=== PATIENT | female | born 1950 | race Caucasian/White ===

== ENCOUNTER 2024-02-19 22:12 | Emergency (ER) | payer MEDICARE, BC, SELFPAY ==
--- NOTE | ~2024-02-19 | XR_ITS ---
Right foot Technique: AP, oblique, and lateral views were obtained. Clinical History: Pain Findings: No acute fracture or dislocation is seen. Osseous alignment is anatomic. Joint spaces are p reserved without erosive or degenerative change. Soft tissues are unremarkable. Impression: Unremarkable right foot radiographs. Reviewed, dictated and finalized at location . Impression: Unremarkable right foot radiographs.
[2024-02-19 22:20] VITALS: BP 127/45; PULSE 82; RESP 17; TEMP 36.1; O2SAT 100
--- NOTE | 2024-02-19 23:43 | ED.EXTPRO ---
HPI - Extremity Problem General Chief complaint: Extremity Problem,Nontraumatic Stated complaint: R foot swollen Time Seen by Provider: 02/19/24 23:32 History of Present Illness HPI Narrative: [age] old female presenting to the emergency department for evaluation for worsening right foot pain. Patient states the foot pain started bowel her earlier this morning. Patient did have follow-up at an outside emergency department, [facility], patient was told that she has osteoarthritis. Patient states after being discharged that she has had worsening pain and swelling the right foot. Patient states she does have increased pain with weight-bearing. Related Data Allergies Allergy/AdvReac Type Severity Reaction Status Date / Time NSAIDS (Non-Steroidal Allergy Unknown Other Verified 02/19/24 22:21 Anti-Inflamma valacyclovir Allergy Unknown Other Verified 02/19/24 22:21 Review of Systems Review of Systems: All systems reviewed & are unremarkable except as noted in HPI and below PMFSH Social History Social History Smoking status: Never smoker Alcohol intake: never Exam Narrative: APPEARANCE: Well appearing, no pain, no distress, well-nourished. HEAD: normocephalic, atraumatic. EYES: PERRLA/EOMI, conjunctivae clear. NOSE: Normal no drainage EARS:TMS clear with good light reflex. THROAT: Pharynx clear, no exudate. NECK: Supple. No adenopathy, no masses. RESPIRATORY: Airway patent, respirations nonlabored. Clear to auscultation bilaterally, no rales, rhonchi, wheezing. CARDIOVASCULAR: Regular rate and rhythm without murmurs rubs or gallops. ABDOMINAL: Soft, nontender, nondistended, normal bowel sounds MUSCULOSKELETAL: Moves all extremities. Strength/ROM intact, No edema, No calf tenderness. NEURO: Alert. Cranial nerves II through XII intact. SKIN: Warm, dry. Normal Color Course Course Emergency Course: And was negative for fracture, patient was treated for suspect cellulitis Vital Signs Vital signs: Vital Signs Temperature 97.0 F L 02/19/24 22:20 Pulse Rate 82 02/19/24 22:20 Respiratory Rate 17 02/19/24 22:20 Blood Pressure 127/45 L 02/19/24 22:20 Pulse Oximetry 100 02/19/24 22:20 Oxygen Delivery Room Air 02/19/24 22:20 Temperature 97.8 F 02/20/24 00:53 Pulse Rate 76 10/10/24 00:53 Respiratory Rate 16 02/20/24 00:53 Blood Pressure 126/57 L 02/20/24 00:53 Pulse Oximetry 98 02/20/24 00:53 Oxygen Delivery Room Air 02/19/24 22:20 MDM - Extremity (Nontraumatic) MDM Narrative Medical decision making narrative: [age] old female presents emergency department for evaluation for foot pain. X-ray was negative for acute fracture dislocation. Patient was started on Keflex emergency department home discharged home on Keflex. All questions concerns were addressed. Patient was comfortable with plan for discharge and close follow-up. Low concern for DVT, gout, osteoarthritis Differential Diagnosis Differential diagnosis: Likely gout, cellulitis, superficial thrombophlebitis, deep venous thrombosis of upper extremity, lower extremity edema, deep vein thrombosis of lower extremity and other Lab Data 02/20/24 00:22 02/20/24 00:22 Labs: Lab Results 02/20/24 Range/Units 00:22 WBC 8.7 (4.5-10.0) K/mm3 RBC 3.59 L (4.2-5.4) M/mm3 Hgb 10.7 L (12.0-15.0) g/dL Hct 33.0 L (37.0-47.0) % MCV 91.9 (80-100) fl MCH 29.8 (26-34) pg MCHC 32.4 (32-36) g/dl RDW 13.6 (11.5-14.5) % Plt Count 264 (150-375) k/mm3 MPV 10.6 H (7.4-10.4) fl Immature Gran % (Auto) 0.3 (0-0.5) % Neut % (Auto) 70.7 (45.5-73.1) % Lymph % (Auto) 17.8 L (18.3-44.2) % Dickson % (Auto) 10.3 H (2.6-8.5) % Eos % (Auto) 0.6 (0-4.4) % Baso % (Auto) 0.3 (0.2-1.2) % Lymph # (Auto) 1.55 (0.9-3.2) K/mm3 Dickson # (Auto) 0.9 H (0.1-0.6) K/mm3 Eos # (Auto) 0.1 (0-0.3) K/mm3 Baso # (Auto) 0.0 (0.0-0.1) K/mm3 Abs Immat Gr
[2024-02-20 00:28] LABS: Basophils Percent Auto 0.3 % (0.2-1.2); Eosinophils Absolute Auto 0.1 K/mm3 (0-0.3); Eosinophils Percent Auto 0.6 % (0-4.4); Hemoglobin 10.7 g/dL (12.0-15.0); Immature Granulocyte Absolute 0.03 K/mm3 (0.00-0.031); Immature Granulocyte Percent A 0.3 % (0-0.5); Lymphocytes Absolute Auto 1.55 K/mm3 (0.9-3.2); Lymphocytes Percent Auto 17.8 % (18.3-44.2); Mean Corpuscular HGB Conc 32.4 g/dl (32-36); Mean Corpuscular Hemoglobin 29.8 pg (26-34); Mean Corpuscular Volume 91.9 fl (80-100); Mean Platelet Volume 10.6 fl (7.4-10.4); Monocytes Absolute Auto 0.9 K/mm3 (0.1-0.6); Monocytes Percent Auto 10.3 % (2.6-8.5); Neutrophils Absolute Auto 6.2 K/mm3 (1.3-6.7); Neutrophils Percent Auto 70.7 % (45.5-73.1); Platelet Count Result 264 k/mm3 (150-375); Red Blood Count 3.59 M/mm3 (4.2-5.4); Red Cell Distribution Width 13.6 % (11.5-14.5); White Blood Count 8.7 K/mm3 (4.5-10.0)
[2024-02-20 00:29] VITALS: BP 121/59; PULSE 86; RESP 18; O2SAT 92
[2024-02-20 00:38] LABS: Alanine Aminotransferase 22 U/L (6-35); Albumin Level 4.3 g/dL (3.5-5.1); Alkaline Phosphatase 156 U/L (38-126); Anion Gap 10 mmol/L (4-12); Aspartate Amino Transferase 32 U/L (14-36); Bilirubin,Total 0.5 mg/dL (0.2-1.3); Blood Urea Nitrogen 32 mg/dL (7-17); Calcium 9.3 mg/dL (8.4-10.2); Carbon Dioxide 21 mmol/L (22-30); Chloride 106 mmol/L (98-107); Estimated Glomerular Filt Rate 44; Glucose 143 mg/dL (65-110); Potassium 3.6 mmol/L (3.4-5.0); Sodium 137 mmol/L (137-145)
[2024-02-20 00:53] VITALS: BP 126/57; PULSE 76; RESP 16; TEMP 36.6; O2SAT 98
[2024-02-20] MEDS: CEPHALEXIN 500 MG CAPSULE PO (00:53)
== END 2024-02-20 00:56 | disposition home or self-care (01) ==
PROVIDERS: Emergency Provider Emergency Medicine; PCP Internal Medicine
DX: L03.115 Cellulitis of right lower limb (principal)
CPT/HCPCS: 36415; 73630; 80053; 85025; 99283; A9270

== ENCOUNTER 2024-04-07 12:30 | Outpatient (RCR) | payer MEDICARE, BC, SELFPAY ==
--- NOTE | 2024-03-05 13:31 | OPREHPOC ---
Outpatient Therapy Plan of Care This is a Multidisciplinary Plan of Care that may contain components documented by all disciplines (PT, OT, and ST.) PT Problem 1 PT Problem #1 Knowledge Deficit PT Goal 1 Goal / Goal Update *indep with HEP Target Visit 8 PT Problem 2 PT Problem #2 Impaired Strength PT Goal 1 Goal / Goal Update increase LE strength to improve transfer and gait/ balance skills: 1* sit/stand transfer without rocking trunk for momentum 2* mat exercises x 20 reps with good control 3*single leg standing R x 8 seconds 4* single leg standing L x 8 seconds Target Visit 8 PT Problem 3 PT Problem #3 Impaired Functional Mobility PT Goal 1 Goal / Goal Update 1* pt up/down 12 steps with one hand railing, modified indep 2* Rod balance/gait score of 54/56 3* 2 minute walking test distance of 325' 4* pt ambulate without assistive device 5* self assessment with LE functional scale of 34% limitation in activity level Target Visit 8
--- NOTE | 2024-03-05 13:31 | PTOPEVAL1 ---
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; about 2 weeks ago, had cellulitis R foot, just completed antibiotics yesterday; went to in pt rehab, return to home 02-04-24; using the wheeled walker; have basement, not been down there to laundry--son doing laundry; have not returned to driving yet; have not been doing any leg exercises at home; Activity: prior to January, did not use assistive device, indep with all home and self care tasks; son lives with her Reported Pain Level Pain Score 2: Self Report Additional Pain Score Comments pain in R foot from cellulitis Assessment PT Clinical Summary Margarita has weakness and decreased mobility, s/p CABG and cellulitis R foot. She now uses a wheeled walker and her son is assisting with laundry because she has not been going down the stairs to basement. LE functional scale rating of 44% limitation. With the evaluation: Rod balance rating of 49/56 2 minute walking test distance of 225' with wheeled walker; 5 reps sit/stand is 16 seconds without use of UE; decreased strength of LE's with decreased knee flexion to ~ 80' due to arthritis. Skilled PT services to increase LE strength, gait and balance skills, with progression to walking without assistive device, to return to prior level of indep functioning. Monitor cardiac status PRN due to recent CABG and R foot pain due to cellulitis. Plan of Care Interventions Gait Training,Neuro Re-education,Patient Education,Therapeutic Activities,Therapeutic Exercise PT Services Indicated Yes Treatment Frequency and 2x/wk for 8 visits Duration These treatments will address the objective and functional deficits as defined above. The patient will be advanced safely and appropriately in order for the patient to progress towards his/her prior level of function. Additional exercises will be introduced and as well as a comprehensive home exercise program upon discharge, if needed, ?to ensure carryover of functional gains achieved in the clinic. This treatment plan has been reviewed and agreement upon by the patient.
--- NOTE | 2024-03-06 11:55 | OTOPEVDC ---
Assessment and note entered by ELIZABET Brown/Ilene, CHT Evaluation Information & Discharge Summary 03/06/24 Diagnosis 112.9, 148.0, N189, D69.6, 125.10, 173.9, 125.810 Subjective Information Patient underwent a CABG x3 on 01-20-24. Patient went to inpatient rehab, discharged home 02-04-24. She reports when she woke up from surgery her left ulnar 2 digits were numb. She continues to have difficulties moving the ulnar 2 fingers and she continues to have numbness. 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 She is right handed. Patient's son lives with her, they have a 1 story home with a basement where laundry is located. She is back to being able to complete ADLs independently, utilizing DME. She is not back to doing laundry yet due to the stairs. She has not returned to driving. Prior to CABG she did not use assistive device, independent with all home and self care tasks. Reported Pain Level Pain Score 2: Self Report Additional Pain Score Comments Patient reports bilateral UEs are sore from getting flu and COVID shots yesterday. Left forearm and hand pain, constant, 2/10 from ulnar nerve neurapraxia. Assessment OT Clinical Summary Patient referred to outpatient OT following CABG. 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 She was instructed on ROM and hand strengthening for the residual deficits/weakness. At this time continued follow up is not indicated. Educated the patient on HEP and she is independent with instructed materials. Recommend she complete these as she waits for the nerve to heal/return. Potential to follow up in a few months with nerve healing, but she may also spontaneously progress back to normal hand functioning also. Discussed this with the patient and she is in agreement with discharge. Plan of Care OT Services Indicated No
--- NOTE | 2024-04-07 13:18 | PTOPDC ---
Assessment and note entered by Selene Castillo, PT Discharge Report Assessment Status Discharge ICD-10 Condition Codes (PT) Difficulty Walking R26.2,R26.9,Weakness R53.1 Onset 01-20-24 Subjective Information is doing well, using the cane to walk more and not need the walker as much; sometimes walk without anything; doing the exercises at home and Reported Pain Level Pain Score 0: Self Report Assessment PT Clinical Summary Margarita has received 8 PT sessions. Compared to the initial evaluation: self assessment with the LE functional from 44 to 30% limitation in activity level; 2 minute walking test distance from 225' with wheeled walker to 300' without device; Rod balance score from 49/56 to 53/56; increase strength of trunk and hips-- perform 20 reps of mat exercises and single leg standing R and L x 3 seconds; on 12 steps requires use of hand railing; education completed for HEP. The goals were partially achieved. Discharge PT services, she is to continue with her HEP and increase walking and activity as tolerated. Plan of Care PT Services Indicated No
== END 2024-04-08 10:10 | disposition home or self-care (01) ==
LOC: ANHPT 12:30
PROVIDERS: PCP Internal Medicine
DX: Z95.1 Presence of aortocoronary bypass graft (principal); I25.810 Atherosclerosis of coronary artery bypass graft(s) without angina pectoris; R26.2 Difficulty in walking, not elsewhere classified; R26.9 Unspecified abnormalities of gait and mobility; R53.1 Weakness
CPT/HCPCS: 97110; 97116; 97161; 97165; 97530

== ENCOUNTER 2024-04-17 12:51 | Emergency (ER) | payer MEDICARE, BC, SELFPAY ==
[2024-04-17 12:52] VITALS: BP 111/90; PULSE 97; RESP 16; TEMP 36.3; O2SAT 100
[2024-04-17 14:48] VITALS: BP 111/57; PULSE 87; RESP 19; O2SAT 100
--- NOTE | 2024-04-17 15:39 | ED_ITS ---
HPI - Extremity Problem General Chief complaint: Extremity Problem,Nontraumatic Stated complaint: possible left foot cellulitis Time Seen by Provider: 04/17/24 14:47 History of Present Illness HPI Narrative: 74-year-old female presenting with concerns for cellulitis. States that she h ad cellulitis on her right foot several months ago. She was treated with Keflex and Has been doing well from plan. States that she developed some redness and swelling in her left foot over the last couple days. Feels exactly like the prior cellulitis. She called her PCP's office who advised her to come in for evaluation as her doctor is out of town. She denies other complaints or concerns. Related Data Allergies Allergy/AdvReac Type Severity Reaction Status Date / Time NSAIDS (Non-Steroidal Allergy Unknown Other Verified 04/17/24 13:29 Anti-Inflamma valacyclovir Allergy Unknown Other Verified 04/17/24 13:29 Review of Systems Review of Systems: All systems reviewed & are unremarkable except as noted in HPI and below PMFSH Social History Social History Smoking status: Never smoker Alcohol intake: never Exam Narrative: GENERAL: Well-appearing, well-nourished, and in no acute distress. HEAD: Normocephalic, atraumatic. EYES: PERRLA and EOMI. ENT: Grossly unremarkable NECK: Supple. CHEST: No respiratory distress. HEART: Regular rate and rhythm EXTREMITIES: dorsum of left foot is erythematous, slightly swollen, warm and mildly tender to the touch, no spreading redness, no fluctuance, neurovascularly intact SKIN: Warm, dry, as above NEURO: No focal deficits. Alert and oriented x3. PSYCH: Normal mood and affect. Course Vital Signs Vital signs: Vital Signs Temperature 97.4 F L 04/17/24 12:52 Pulse Rate 97 04/17/24 12:52 Respiratory Rate 16 04/17/24 12:52 Blood Pressure 111/90 04/17/24 12:52 Pulse Oximetry 100 04/17/24 12:52 Oxygen Delivery Room Air 04/17/24 12:52 Temperature 97.4 F L 04/17/24 12:52 Pulse Rate 95 04/17/24 15:53 Respiratory Rate 19 04/17/24 14:48 Blood Pressure 116/78 04/17/24 15:53 Pulse Oximetry 100 04/17/24 14:48 Oxygen Delivery Room Air 04/17/24 12:52 MDM - Extremity (Nontraumatic) MDM Narrative Medical decision making narrative: 74-year-old female presenting with concerns for cellulitis affecting her left foot. Vital signs are within normal limits. Exam is remarkable for the above. It is consistent with cellulitis involving the dorsum of her left foot. She did well on Keflex several months ago, will send in for Keflex for this infection. Recommend PCP follow-up. Discussed appropriate return precautions and supportive care. Discharged in stable condition. Differential Diagnosis Differential diagnosis: Likely cellulitis Medical Records Attestation: I reviewed the patient's medical records. Critical Care Time Critical Care Time Critical Care Time: No Discharge Plan Discharge Clinical Impression: Cellulitis Patient Disposition: Home, Self-Care Condition: Stable Instructions: Antibiotic Form, Cellulitis (ED) Additional Instructions: Please complete the antibiotics as prescribed. Follow-up with your primary care provider. If your symptoms worsen or other concerning symptoms arise, please return to the ER. Patient Language: Kyrgyz Prescriptions: New cephalexin 500 mg capsule 500 mg PO Q6H 10 Days Qty: 40 0RF No Action cephalexin 500 mg capsule 500 mg PO Q8H 7 Days Qty: 21 0RF Follow-up/Referrals: Ama,Elpidio Estrella MD [Primary Care Provider] -
[2024-04-17 15:53] VITALS: BP 116/78; PULSE 95
== END 2024-04-17 15:56 | disposition home or self-care (01) ==
PROVIDERS: Emergency Provider Emergency Medicine; PCP Internal Medicine
DX: L03.116 Cellulitis of left lower limb (principal)
CPT/HCPCS: 99283

== ENCOUNTER 2024-04-25 13:12 | Emergency (ER) | payer MEDICARE, BC, SELFPAY ==
--- NOTE | ~2024-04-25 | XR_ITS ---
EXAM: XR hand LT min 3V DATE: 04/25/2024 15:09 HISTORY: pain, swelling . COMPARISON: 07/19/2017. FINDINGS: Normal mineralization. Ossific fragment posterior to the first carpal row. No lytic or vivian stic lesion. Moderate scattered degenerative changes. No erosion or periosteal change. Vascular calci fication. IMPRESSION: Likely triquetral fracture, correlate with pain/tenderness. Reviewed, dictated and finalized at location K. [facility] [employer]
[2024-04-25 13:52] VITALS: BP 138/81; PULSE 95; RESP 18; O2SAT 100
--- NOTE | 2024-04-25 15:49 | ED_ITS ---
HPI - Extremity Injury (Upper) General Chief Complaint: Extremity Injury, Upper Stated Complaint: left hand swelling Time Seen by Provider: 04/25/24 14:57 Source: patient Mode of arrival: ambulatory Limitations: no limitations History of Present Illness HPI narrative: Patient is a 74-year-old female who presents the ED with report of left wrist pain and swelling. Patient reports she woke up 2 days ago with pain in her left wrist. She complains of pain and swelling that has persisted since then. Denies any known injury. Denies redness or warmth of wrist. Denies fevers. She is currently on antibiotics (keflex) for cellulitis of her L foot. History of recent CABG, on Plavix. Has been doing well since then. Hx of previous carpal tunnel release. Related Data Allergies Allergy/AdvReac Type Severity Reaction Status Date / Time NSAIDS (Non-Steroidal Allergy Unknown Other Verified 04/17/24 13:29 Anti-Inflamma valacyclovir Allergy Unknown Other Verified 04/17/24 13:29 Review of Systems Review of Systems: All systems reviewed & are unremarkable except as noted in HPI. All systems reviewed & are unremarkable except as noted in HPI and below PMFSH Social History Social History Smoking status: Never smoker Alcohol intake: never Exam Narrative: GENERAL: Elderly but well appearing, well-nourished, non-toxic, in no acute distress. HEAD: Normocephalic, atraumatic. RESPIRATORY: Airway patent, respirations nonlabored. CARDIOVASCULAR: Regular rate and rhythm. Radial pulses strong and easily palpable. MUSCULOSKELETAL: Moves all extremities. Limited range of motion of left wrist due to pain. Mild swelling noted throughout left wrist. Diffuse tenderness along carpal bones of left wrist, particularly laterally. Mild tenderness throughout anatomical snuffbox. Sensation intact. SKIN: Warm, dry, normal color. NEURO: A&O X3. Speech clear. Cranial nerves II-XII grossly intact. No ataxic movements. PSYCHIATRIC: Appropriate mood and affect. Normal interaction. Course Vital Signs Vital signs: Vital Signs Pulse Rate 95 04/25/24 13:52 Respiratory Rate 18 04/25/24 13:52 Blood Pressure 138/81 04/25/24 13:52 Pulse Oximetry 100 04/25/24 13:52 Pulse Rate 95 04/25/24 13:52 Respiratory Rate 18 04/25/24 13:52 Blood Pressure 138/81 04/25/24 13:52 Pulse Oximetry 100 04/25/24 13:52 MDM - Extremity Injury (Upper) MDM Narrative Medical decision making narrative: Patient?s injury is consistent with musculoskeletal etiology. No signs of neurologic or vascular compromise on physical examination. Compartments are soft without signs of compartment syndrome. No evidence of septic joint. No evidence of cellulitis. Patient is already on keflex for cellulitis of her foot. XR showing likely triquetral fx, correlate with tenderness. Patient is point tender in this area. She does also have some tenderness in the shanice tomical snuffbox. Will be placed in a volar short-arm splint. Will be referred to Orthopedics/Hand surgery for further evaluation. Patient is felt to be stable for discharge home and further outpatient management and treatment. Pain medication sent to pharmacy. Patient given strict return precautions. She agrees with plan. Discharged in stable condition. Medical Records Attestation: I reviewed the patient's medical records. Imaging Data Attestation: I personally reviewed and interpreted this imaging study as follows: Radiologist's impression: ITS Impressions Hand X-Ray 04/25/24 15:27 IMPRESSION: Likely triquetral fracture, correlate with pain/tenderness. Discharge Plan Discharge Clinical Impression: Fracture of triquetral bone of left wrist Patient Disposition: Home, Self-Care Condition: Stable Instructions: Antibiotic Form, Wrist Fracture in Adults (ED), Splint Care (ED) Additional Instructions: Wear splint until seen by Orthopedics/Hand surgery. Continue Tylenol as needed for pain. Utilize tramadol as needed for more severe pain. Return to the ED if you experience worsening or severe pain, recurrent injury, numbness, or any other symptoms of concern. Dr. Maradiaga (HAND/PLASTIC SURGERY) - [phone] Dr. Montes De Oca - [phone] Patient Language: Kinyarwanda Prescriptions: New tramadol 50 mg tablet 50 mg PO Q6H PRN (Reason: pain) Qty: 15 0RF No Action cephalexin 500 mg capsule 500 mg PO Q8H 7 Days Qty: 21 0RF cephalexin 500 mg capsule 500 mg PO Q6H 10 Days Qty: 40 0RF Follow-up/Referrals: Ama,Elpidio Estrella MD [Primary Care Provider] - Time of Disposition: 15:53
--- NOTE | 2024-04-25 16:22 | PC.NURSE ---
1610: CMS intact to left extremity after short arm volar splint applied. Pt tolerated well.
[2024-04-25 16:23] VITALS: BP 130/70; PULSE 88; RESP 16; TEMP 36.8; O2SAT 100
--- OUTSIDE RECORDS SUMMARY | 2024-04-29 13:54 | XMS_ITS | Encounter Summary ---
Author Organization [facility] Address [address] [place] [address]. [place], [place] [id number] [place] [address] Care Team Providers Care Examination Scorer Name Role Phone Elpidio Serrato MD Primary Care Provider [phone] Reason for Visit * Reason Comments ER F/U [facility] ER f/u 02/19/24 f or Rt foot painAnderson ER f/u 02/19/24 for cellulitis Results Patient would like t o talk about results of nerve conduction. Encounter Details Date Type Department Care Team (Late st Contact Info) Description 02/25/2024 2:20 PM CDT Office Visit [facility] Family & Internal Medicine - [address] [phone] Elpidio Serrato MD [address] [place] [address] ER F/U ([facility] ER f/u 02/19/24 for Rt foot pain/[facility] ER f/u 02/19/24 for cellulitis); Results (Patient would like to talk about results of nerve conduction. ) Social History Tobacco Use Types Packs/Day Years Used Date Smoking Tobacco: Never Smokeless Tobacco: Never Alcohol Use Standard Drinks/Week Comments No 0 (1 standard drink = 0.6 oz pur e alcohol) AUDIT-C Answer Date Recorded Frequency of Alcohol Consumption Never 08/12/2018 Average Number of Drinks Not on file 019 Frequency of Binge Drinking Not on file 06/2018 PHQ-2 Answer Date Recorded Patient Health Questionnaire-2 Score 0 08/14/2023 Comments No Sex and Gender Information Value Date Recorded Sex Assigned at Female 08/12/2018 9:05 AM CDT Legal Sex Female 4:46 PM CDT Gender Identity Female 08/12/2018 9:05 AM CDT Sexual Orientation Straight 08/12/2018 9: 05 AM CDT documented as of this encounter Last Filed Vital Signs Vital Sign Reading Time Taken Comments Blood Pressure 132/70 02/25/2024 2:56 PM CDT Pulse 77 02/25/2024 2:56 PM CDT Temperature 36.3 ??C (97.3 ??F) 02/25/2024 2:56 PM CD T Respiratory Rate 16 02/25/2024 2:56 PM CDT Oxygen Saturation 99% 02/25/2024 2:56 PM CDT Inhaled Oxygen Concentration - - Weight 86.7 kg (191 lb 1.6 oz) 02/25/2024 2:56 P M CDT Height 152.4 cm (5') 02/25/2024 2:56 PM CDT Body Mass Index 37.32 02/25/2024 2:56 PM CDT documented in this encounter Progress Notes * Elpidio Serrato MD - 02/25/2024 2:20 PM CDT Images from the original note were not included. Office Progress Note Reason for Visit: ER F/U ([facility] ER f/u 02/19/24 for Rt foot pain/[facility] ER f/u 02/19/24 for cellulitis) and Results (Patient would like to talk about results of nerve conduction. ) History of Present Illness: She is here today for follow-up from the wound and ER visits. She states that she initially went to the emergency room at [facility] for right foot pain andswelling. She had x-rays done in the ER and was told that this was osteoarthritis and is having prednisone and Voltaren gel. She states that she read on there that she should not use these medications with congestive heart failure so she did not start these. She began having more pain and increasedswelling so she went to the emergency room at [facility]. At [facility] she was diagnosed with cellulitis and started on cephalexin. She states that her swelling has gone down and the redness has significantly decreased. She denies fever or chills. No injury to the foot that she is aware. Congestive heart failure: Doing well on current medications. She is compliant with medication without medication side effects. No dyspnea on exertion. She has minimal lower extremity edema. ROS: Review of Systems All other systems reviewed and are negative. Medications: Current Outpatient Medications on File Prior to Visit Medication Sig acetaminophen CR (TYLENOL) 650 MG Tab CR 8 hr tablet Take 1 tablet (650 mg total) by mouth. aspirin EC (ECOTRIN) 81 MG tablet Take 1 tablet (81 mg total) by mouth daily. atorvastatin (LIPITOR) 40 MG tablet 1 tablet (40 mg total). cephALEXin (KEFLEX) 500 MG capsule take 1 capsule by mouth every 8 hours for 7 days clopidogrel (PLAVIX) 75 MG tablet Take 1 tablet (75 mg total) by mouth daily. COMBIGAN 0.2-0.5 % ophthalmic solution INSTILL 1 DROP INTO BOTH EYES TWICE A DAY diclofenac sodium (VOLTAREN) 1 % gel Apply 4 g topically 4 (four) times daily. empagliflozin (JARDIANCE) 10 MG tablet Take 1 tablet (10 mg total) by mouth daily. furosemide (LASIX) 20 MG tablet Take 0.5 tablets (10 mg total) by mouth daily. Glucose Blood test strip by in vitro route. insulin glargine (LANTUS) 100 UNIT/ML injection (PEN) Inject 17 Units into the skin every morning. latanoprost 0.005 % ophthalmic solution Apply 1 drop to eye. levothyroxine 88 MCG tablet Take 1 tablet (88 mcg total) by mouth daily. metoprolol succinate ER (TOPROL-XL) 25 MG 24 hr tablet Take 0.5 tablets (12.5 mg total) by mouth daily. oxyCODONE immediate release (ROXICODONE) 5 MG immediate release tablet 1 tablet (5 mg total). semaglutide (OZEMPIC, 1 MG/DOSE,) 2 MG/1.5ML injection (PEN) INJECT 1MG SUBCUTANEOUSLY ONCE A WEEK SENOKOT 8.6 MG tablet 1 tablet (8.6 mg total). vitamin D2, ergocalciferol, 87093 UNITS capsule Take 1 capsule (1.25 mg total) by mouth weekly. No current facility-administered medications on file prior to visit. Allergies: Allergies Allergen Reactions Pseudoephedrine Tachycardia Valacyclovir Other (see comment) put me in renal failure Medical History: Past Medical History: Diagnosis Date Cataract Closed tibia fracture Diabetes mellitus ([facility]) Disease of thyroid gland Glaucoma Hypertension Surgical History: Past Surgical History: Procedure Laterality Date APPENDECTOMY CABG, ARTERIAL, THREE 01/20/2024 Performed at [facility] by Dr. Treviño CARPAL TUNNEL RELEASE Bilateral SECTION HC TRIGGER FINGER RELEASE 4 times Social History: Social History Socioeconomic History Marital status: Number of children: 2 Tobacco Use Smoking status: Never Smokeless tobacco: Never Vaping Use Vaping status: Never Used Substance and Sexual Activity Alcohol use: No Drug use: Not Currently Sexual activity: Never Other Topics Concern Exercise No Special Diet Yes Comment: DIABETIC DIET Caffeine Concern No Comment: 1/2 cup coffee, tea Family History: Family History Problem Relation Name Age of Onset Open Heart Mother Heart Attack Mother Diabetes Mother Kidney Disease Mother Diabetes Sister Diabetes Brother PE: Physical Exam Vitals and nursing note reviewed. Constitutional: Appearance: Normal appearance. She is well-developed. HENT: Head: Normocephalic and atraumatic. Eyes: Extraocular Movements: Extraocular movements intact. Conjunctiva/sclera: Conjunctivae normal. Pupils: Pupils are equal, round, and reactive to light. Neck: Vascular: Normal carotid pulses. No carotid bruit. Cardiovascular: Rate and Rhythm: Normal rate and regular rhythm. Heart sounds: Normal heart sounds. No murmur heard. No friction rub. No gallop. Pulmonary: Effort: Pulmonary effort is normal. No respiratory distress. Breath sounds: Normal breath sounds. No wheezing. Musculoskeletal: Right lower le+ Pitting Edema present. Left lower le+ Pitting Edema present. Skin: General: Skin is warm and dry. Neurological: Mental Status: She is alert and oriented to person, place, and time. Psychiatric: Behavior: Behavior normal. Judgment: Judgment normal. Filed Vitals: 02/25/24 1456 BP: 132/70 Pulse: 77 Resp: 16 Temp: 97.3 ??F (36.3 ??C) TempSrc: Skin SpO2: 99% Weight: 86.7 kg (191 lb 1.6 oz) Height: 1.524 m (5') Diagnoses/Impression: 1. Cellulitis of right foot 2. Benign essential hypertension Chronic 3. Chronic congestive heart failure, unspecified heart failure type ([facility]/HCC) Chronic Recommendations and Plan: 1. Cellulitis of right foot (Primary) Finish antibiotics as prescribed Encouraged to establish with podiatry for toenail care due to the inability to cut her own toenails Call if not improving or if worsening. 2. Benign essential hypertension Well controlled, continue with present management. 3. Chronic congestive heart failure, unspecified heart failure type ([facility]) Doing well, continue with same medications. I personally spent a total of 31 minutes on the day of the encounter. This includes [id number]-zd-dbva and fjk-dcgz-jm-face time I provided on the day of the encounter & excludes time spent performing separately reportable services. Orders Placed This Encounter cephALEXin (KEFLEX) 500 MG capsule PCP: ELPIDIO SERRATO MD 02/25/2024 documented in this encounter Plan of Treatment Upcoming Encounters Date Type Department Care Team (Late st Contact Info) Description 07/13/2024 1:40 PM SCREEN WRITER Office Visit [facility] Multispecialty Care - [facility] [address] [facility] [address] [facility], [address] [place] [address] Kirill Montelongo MD [address] [place] [address] documented as of this encounter Visit Diagnoses Diagnosis Cellulitis of right foot- Primary Cellulitis and abscess of foot, except toes Benign essential hypertension Essential hypertension, benign Chronic congestive heart failure, unspecified heart failure type ([facility]) documented in this encounter Additional Health Concerns Assessment Noted Time PHQ-9 Depression Total Score: 0 08/14/19 24 7:35 AM CDT documented as of this encounter Care Teams Examination Scorer Relationship Specialty Start Date End Date Elpidio Serrato MD [address] [place] [address] PCP - General INTERNAL MEDICINE 06/19/18 documented as of this encounter
--- OUTSIDE RECORDS SUMMARY | 2024-04-29 13:54 | XMS_ITS | Encounter Summary ---
Author Organization [facility] Address [address] [place] [address] Care Team Providers Care Molder Inflated Ball Name Role Phone Unavailable Primary Care Provider Unavailabl e Encounter Details Date Type Department Care Team (Late st Contact Info) Description 02/17/1998 Orders Only [facility] - Laboratory [address] [place] [address] ProviderAldair MD Social History Tobacco Use Types Packs/Day Years Used Date Smoking Tobacco: Never Assessed Sex and Gender Information Value Date Recorded Sex Assigned at Not on file Gender Identity Not on file Sexual Orientation Not on file documented as of this encounter Plan of Treatment Not on file documented as of this encounter Procedures Procedure Name Priority Date/Time Associated Diagnosis Comments CYTOLOGY SMEAR PAP THIN PREP KIM 02/17/1998 2:07 PM CDT documented in this encounter Results * CYTOLOGY SMEAR PAP THIN PREP (02/17/1998 2:07 PM CDT) Result CASE NUMBER [id number] Comment: ORDERING PHYSICIAN ??JACKSON BALLARD SPECIMEN TYPE ?PAP Smear Date ? 02/17/1998 Procedure ?Cervical/Endocervical, 1 Vial for Thin Prep Received Specimen Adequacy ?Satisfactory for Evaluation but Limited No endocervical component in a non-atrophic cervical smear. Categorization ? Within Normal Limits Snomed. ?02/23/1998 1621 <1> Cutting Machine Operator Helper ? Iris Stewart(ASCP) PAP Footnote ? The PAP smear is only a screening procedure to aid in the detection of cervical cancer and its precursors. ??It is not a diagnostic procedure and should not be used as the sole means to detect cervical cancer. ??Both false negative and false positive results have been experienced. MISCELLANEOUS SAMPLES / Unknown 02/17/1998 2:07 PM CDT 02/18/1998 2:07 PM CDT Historical Provider LAB - PATHOLOGY/C YTOLOGY ORDERABLES documented in this encounter Visit Diagnoses Not on filedocumented in this encounter
--- OUTSIDE RECORDS SUMMARY | 2024-04-29 13:54 | XMS_ITS | Encounter Summary ---
Author Organization [facility] Address [address] [place] [address]. [place], [place] [id number] [place] [address] Care Team Providers Care Staffing Assistant Name Role Phone Elpidio Serrato MD Primary Care Provider [phone] Encounter Details Date Type Department Care Team (Latest Contact Info) Description 02/25/2024 Travel Social History Tobacco Use Types Packs/Day Years Used Date Smoking Tobacco: Never Smokeless Tobacco: Never Alcohol Use Standard Drinks/Week Comments No 0 (1 standard drink = 0.6 oz pur e alcohol) AUDIT-C Answer Date Recorded Frequency of Alcohol Consumption Never 08/12/2018 Average Number of Drinks Not on file Frequency of Binge Drinking Not on file 06/2018 PHQ-2 Answer Date Recorded Patient Health Questionnaire-2 Score 0 08/14/2023 Comments No Sex and Gender Information Value Date Recorded Sex Assigned at Female 08/12/2018 9:05 AM CDT Legal Sex Female 4:46 PM CDT Gender Identity Female 08/12/2018 9:05 AM CDT Sexual Orientation Straight 08/12/2018 9: 05 AM CDT documented as of this encounter Plan of Treatment Upcoming Encounters Date Type Department Care Team (Late st Contact Info) Description 07/13/2024 1:40 PM BEHAVIORAL HEALTH CARE COORDINATOR Office Visit [facility] Multispecialty Care - [address], [address] [place] [phone] Kirill Montelongo MD [address] [place] [address] documented as of this encounter Visit Diagnoses Not on filedocumented in this encounter Additional Health Concerns Assessment Noted Time PHQ-9 Depression Total Score: 0 08/14/19 24 7:35 AM CDT documented as of this encounter Care Teams Staffing Assistant Relationship Specialty Start Date End Date Elpidio Serrato MD [address] [place] [address] PCP - General INTERNAL MEDICINE 06/19/18 documented as of this encounter
--- OUTSIDE RECORDS SUMMARY | 2024-04-29 13:54 | XMS_ITS | Clinical Summary ---
Author Organization [facility] [employer] Address [address] [place] [address] Care Team Providers Care Electronics Assembler And Tester Name Role Phone Unavailable Primary Care Provider Unavailabl e Source Comments [facility] [employer],non-owned Affiliates and Associated Physician Practices is amultiple site organization consisting of ambulatory clinics and hospital sitesin [place], [place], [place]. This disclosure is being madepursuant to the Care Everywhere program and may not contain all information available regarding this patient. Last updated 18.[facility] [employer] Social History Tobacco Use Types Packs/Day Years Used Date Smoking Tobacco: Never Assessed Sex and Gender Information Value Date Recorded Sex Assigned at Not on file Gender Identity Not on file Sexual Orientation Not on file Plan of Treatment Health Maintenance Due Date Last Done Comments BONE DENSITY TESTING 1950 COLOGUARD (AGES 45-75) - COL ON CA SCREENING 1949 COLON MONITORING 1949 COLONOSCOPY - COLON CA SCREENING 1949 CT COLONOGRAPHY - COLON CA SCREENING 1950 Colorectal Cancer Screening 1949 FIT - COLON CA SCREENING 1949 FLEX SIG - COLON CA SCREENING 1949 LIPID TESTING 1950 MAMMOGRAM 1949 HEPATITIS C SCREENING 03/21/1967 DTAP/TDAP/TD VACCINES (1 - Tdap) 1968 ZOSTER VACCINE (1 of 2) 1999 PNEUMOCOCCAL VACCINE 65+ (1 of 1 - PCV) 2014 DEPRESSION SCREENING 05/13/2023 COVID-19 VACCINE (1 - 2023-2 5 season) 2024 INFLUENZA VACCINE (#1) 2024 0, 03/06/2019, 03/06/2019 Respiratory Syncytial Virus (RSV) Vaccine Pt: or over 60 yrs (1 - 1-dose 75+ series) 2024 HEPATITIS B VACCINE Aged Out No longe r eligible based on patient's age to complete this topic HIB VACCINE Aged Out No longer eligi ble based on patient's age to complete this topic HPV VACCINE Aged Out No longer eligi ble based on patient's age to complete this topic MENINGOCOCCAL VACCINE Aged Out No terry jeffrey eligible based on patient's age to complete this topic
--- OUTSIDE RECORDS SUMMARY | 2024-04-29 13:54 | XMS_ITS | Encounter Summary ---
Author Organization [facility] Address [address] [place] [address]. [place], [place] [phone] [place] [address] Care Team Providers Care International Trade Compliance Manager Name Role Phone Elpidio Serrato MD Primary Care Provider [phone] Reason for Referral * Consultation (Routine) - New Request Specialty Diagnoses / Procedures Referred By Constantino alvarado Referred To Contact NEUROLOGY Diagnoses Ulnar neuropathy of left upper extremity Procedures OFFICE/OUTPATIENT NEW LOW MDM 30-44 MINUTES OFFICE/OUTPT VISIT,NEW,LEVL IV OFFICE/OUTPT VISIT,NEW,LEVL V OFFICE/OUTPT VISIT,EST,LEVL III OFFICE/OUTPT VISIT,EST,LEVL IV OFFICE/OUTPT VISIT,EST,LEVL V Elpidio Serrato MD [address] [place] [address] Phone: tel: fax: [facility] Multispecialty Care - [facility] [address] [facility] [facility], [address] [place] [address] Phone: tel: Referral ID Status Reason Start Date Expiration Date Visits Requested Visits Authorized [id number] New Request Specialty Services 03/23/2025 1 1 Reason for Visit * Reason Onset Date Comments Results 02/21/2024 Referral 02/21/2024 Neurology Encounter Details Date Type Department Care Team (Late st Contact Info) Description 02/21/2024 Telephone [facility] Family & Internal Medicine [facility] [address] [place] [phone] Elpidio Serrato MD [address] [place] [address] Results; Referral (Neurology ) Social History Tobacco Use Types Packs/Day [...] AM CDT documented as of this encounter Progress Notes * Ruth Dewey MA - 02/25/2024 4:24 PM CDT Patient informed and v/u of information. Referral ordered. 02/25/2024 4:24 PM * Ninoska Springer MA - 02/21/2024 1:11 PM CDT The patient called for a referral to the following physician: Is this a new consult:Yes. Dr's name: pending Specialty: neurology Reason for referral (diagnosis): ulnar neuropathy Appointment: pending Last office visit at this office: Last visit with ELPIDIO SERRATO in [facility] was on: 02/10/2024 in [facility] Future appointment scheduled: Future Appointments Date Time Provider Department Center 02/25/2024 2:20 PM Elpidio Serrato MD [id number] * Ninoska Springer MA - 02/21/2024 1:08 PM CDT ----- Message from Dr. Elpidio Serrato sent at 02/20/2024 12:52 PM CDT ----- Severe ulnar nerve neuropathy. Refer to Neurology. LMOM and waiting for return call regarding results. Referral order placed. / la,rma documented in this encounter Plan of Treatment Upcoming Encounters Date Type Department Care Team (Late st Contact Info) Description 07/13/2024 1:40 PM LINING MARKER Office Visit [facility] Multispecialty Care - [facility] [address], [address] [place] [address] Kirill Montelongo MD 3 [place] [address] Scheduled Referrals Name Type Priority Associated Diagnoses Orde r Schedule Ambulatory referral to Neurology ([facility]) Referral Routine Ulnar neuropathy of left upper extremity Ordered: 02/25/2024 documented as of this encounter Visit Diagnoses Diagnosis Ulnar neuropathy of left upper extremity- Primary Lesion of ulnar nerve documented in this encounter Additional Health Concerns Assessment Noted Time PHQ-9 Depression Total Score: 0 08/14/19 24 7:35 AM CDT documented as of this encounter Care Teams International Trade Compliance Manager Relationship Specialty Start Date End Date Elpidio Serrato MD [address] [place] [address] PCP - General INTERNAL MEDICINE 06/19/18 documented as of this encounter
--- OUTSIDE RECORDS SUMMARY | 2024-04-29 13:54 | XMS_ITS | Patient Health Summary ---
Author Organization [facility] [employer] Address [address] [place] [address] Care Team Providers Care Dealer Support Technician Name Role Phone Unavailable Primary Care Provider Unavailabl e Note from [facility],non-owned Affiliates and Associated Physician Practices is amultiple site organization consisting of ambulatory clinics and hospital sitesin [place], [place], [place] and [place]. This disclosure is being madepursuant to the Care Everywhere program and may not contain all information available regarding this patient. Last updated 18.[facility] [employer] Social History Tobacco Use Types Packs/Day Years Used Date Smoking Tobacco: Never Assessed Sex and Gender Information Value Date Recorded Sex Assigned at Not on file Gender Identity Not on file Sexual Orientation Not on file Procedures * GROSS + MICRO EXAM(Performed 04/17/2005) * CYTOLOGY SMEAR PAP THIN PREP(Performed 02/17/1998) Results * GROSS + MICRO EXAM (04/17/2005 10:36 AM CHEMISTRY LABORATORY TECHNICIAN) Result CASE NUMBER [id number] Comment: ORDERING PHYSICIAN ??JACKSON BALLARD SPECIMEN TYPE ?Cervix Conization-@ 1200 Date ? 04/17/2005 Physician ?Kellee Ballard Description ? The specimen is received in a formalin filled container labeled with the patient's name and LEEP suture rosalino at 12 o'clock. ??It consists of two pieces of tissue, one is semi-lunar and has a stitch at one edge measuring 1.6 x 1.1 x 0.6 cm. ??The mucosa is pink with dark purple discoloration, mainly in the 12 to 6 o'clock half. There is elongated piece of unoriented tissue received measuring 2.0 x 0.6 x 0.5 cm. ??The surgical margin is inked black. Sections are submitted as follows A is the twelve to three quarter quadrant. B is the three to six quadrant. C is the six to nine quadrant. D is the nine to twelve quadrant. E is the separately received tissue. MS/db Microscopic Exam ? Sections of all of the specimens show some evidence of previous surgical intervention with acute and chronic inflammation, granulation tissue, and hemosiderin pigment deposition. The stroma shows focal areas of vascular congestion and edema. The squamous epithelium is not seen in the 12 to 3 o'clock quadrant, and it is thinned in the 3 to 6 o'clock quadrant with regenerative changes. No dysplasia is seen. The 6 to 9 and 9 to 12 o'clock quadrants show focal koilocytic change. No high-grade dysplasia or invasive malignancy is seen. The dysplasia is not seen at the inked surgical margin. The separately received tissue shows koilocytic change which approached the inked surgical margin, but no endocervical glands are seen. No high- grade dysplasia or invasive malignancy is seen. MS/na RT Diagnosis ? I. ?Cervical cone, LEEP -- ?Low-grade squamous intraepithelial ?lesion (RADHA 1) with focal koilocytic ?change 6 to 9 and 9 to 12 o'clock quadrants. -- ?No high-grade dysplasia or invasive ?malignancy is seen -- ?Evidence of previous surgical intervention II. ?? Separately submitted specimen -- ?Low-grade intraepithelial lesion ?(RADHA 1 with focal koilocytic change, ?focally approximating inked margin of resection) MS/na RT Commercial Leasing Agent ? na Pathologist ?Ck Roberts M.D. Snomed. ?04/18/2005 1608 <1> CPT code ? 98872,31574 MISCELLANEOUS SAMPLES / Unknown 04/17/2005 10:36 AM CHEMISTRY LABORATORY TECHNICIAN 04/17/2005 10:39 AM CHEMISTRY LABORATORY TECHNICIAN Historical Provider LAB - PATHOLOGY/C YTOLOGY ORDERABLES * CYTOLOGY SMEAR PAP THIN PREP (02/17/1998 2:07 PM CDT) Result CASE NUMBER [id number] Comment: ORDERING PHYSICIAN ??JACKSON BALLARD SPECIMEN TYPE ?PAP Smear Date ? 02/17/1998 Procedure ?Cervical/Endocervical, 1 Vial for Thin Prep Received Specimen Adequacy ?Satisfactory for Evaluation but Limited No endocervical component in a non-atrophic cervical smear. Categorization ? Within Normal Limits Snomed. ?02/23/1998 1621 <1> Crystal Machining Coordinator ? Iris Stewart(ASCP) PAP Footnote ? The [...] CDT 02/18/1998 2:07 PM CDT Historical Provider MD LAB - PATHOLOGY/C YTOLOGY ORDERABLES
--- OUTSIDE RECORDS SUMMARY | 2024-04-29 13:54 | XMS_ITS | Encounter Summary ---
Author Organization [facility] Address [address] [place] [address]. [place], [place] [address] [place] [address] Care Team Providers Care Can Dryer Name Role Phone Elpidio Serrato MD Primary Care Provider [phone] Reason for Visit * Reason Onset Date Comments Wound 02/28/2024 Encounter Details Date Type Department Care Team (Late st Contact Info) Description 02/28/2024 Telephone [facility] Medical Group Family & Internal Medicine [id number] [place] [address] Elpidio Serarto MD [address] [place] [address] Wound Social History Tobacco Use Types Packs/Day Years [...] Progress Notes * Ruth Dewey MA - 02/28/2024 2:39 PM CDT Patient informed and v/u of recommendations. Patient scheduled for a f/u appt on . * CELI Beckman - 02/28/2024 12:58 PM CDT 5 more days of keflex sent over Follow up next week Worsening symptoms over weekend, go to ER or UC * Talia Aguilar - 02/28/2024 7:23 AM CDT Patient came in last week and was prescribed antibiotics for Cellulitis in her right foot. The antibiotics helped but the swelling is coming back and it is turning red again. [facility] documented in this encounter Plan of Treatment Upcoming Encounters Date Type Department Care Team (Late st Contact Info) Description 07/13/2024 1:40 PM COUPON COLLECTION CLERK Office Visit [facility] Medical Group Multispecialty Care - [facility] [address] [facility], [address] [place] [address] Kirill Montelongo MD [address] [place] [address] documented as of this encounter Visit Diagnoses Diagnosis Cellulitis, unspecified cellulitis site- Primary documented in this encounter Additional Health Concerns Assessment Noted Time PHQ-9 Depression Total Score: 0 08/14/19 24 7:35 AM CDT documented as of this encounter Care Teams Can Dryer Relationship Specialty Start Date End Date Elpidio Serrato MD [address] [place] [address] PCP - General INTERNAL MEDICINE 06/19/18 documented as of this encounter
--- OUTSIDE RECORDS SUMMARY | 2024-04-29 13:54 | XMS_ITS | Encounter Summary ---
Author Organization [facility] Address [address] [place] [address]. [place], [place] [id number] [place] [address] Care Team Providers Care X Ray Equipment Servicer Name Role Phone Elpidio Serrato MD Primary Care Provider [phone] Encounter Details Date Type Department Care Team (Latest Contact Info) Description 03/05/2024 Travel Social History Tobacco Use Types Packs/Day [...] st Contact Info) Description 07/13/2024 1:40 PM PHYSICIAN SCIENTIST Office Visit [facility] Medical Group Multispecialty Care - [address], [address] [place] [id number] Kirill Montelongo MD [address] [place] [address] documented as of this encounter Visit Diagnoses Not on filedocumented in this encounter Additional Health Concerns Assessment Noted Time PHQ-9 Depression Total Score: 0 08/14/19 24 7:35 AM CDT documented as of this encounter Care Teams X Ray Equipment Servicer Relationship Specialty Start Date End Date Elpidio Serrato MD [address] [place] [address] PCP - General INTERNAL MEDICINE 06/19/18 documented as of this encounter
--- OUTSIDE RECORDS SUMMARY | 2024-04-29 13:54 | XMS_ITS | Encounter Summary ---
Author Organization [facility] Address [address] [place] [address] Care Team Providers Care Sewing Techniques Demonstrator Name Role Phone Unavailable Primary Care Provider Unavailabl e Encounter Details Date Type Department Care Team (Late st Contact Info) Description 04/17/2005 Orders Only [facility] [address] [place] [address] ProviderAldair MD Social History Tobacco Use Types Packs/Day Years Used Date Smoking Tobacco: Never Assessed Sex and Gender Information Value Date Recorded Sex Assigned at Not on file Gender Identity Not on file Sexual Orientation Not on file documented as of this encounter Plan of Treatment Not on file documented as of this encounter Procedures Procedure Name Priority Date/Time Associated Diagnosis Comments GROSS + MICRO EXAM KIM 04/17/2005 10 :36 AM SURFACING MACHINE OPERATOR documented in this encounter Results * GROSS + MICRO EXAM (04/17/2005 10:36 AM SURFACING MACHINE OPERATOR) Result CASE NUMBER [id number] Comment: ORDERING PHYSICIAN ??JACKSON BOOTH SPECIMEN TYPE ?Cervix Conization-@ 1200 Date ? 04/17/2005 Physician ?Kellee Booth Description ? The specimen is received in [...] approximating inked margin of resection) MS/na RT Bundling Machine Operator ? na Pathologist ?Ck Roberts M.D. Snomed. ?04/18/2005 1608 <1> CPT code ? 71450,40190 MISCELLANEOUS SAMPLES / Unknown 04/17/2005 10:36 AM SURFACING MACHINE OPERATOR 04/17/2005 10:39 AM SURFACING MACHINE OPERATOR Historical Provider MD LAB - PATHOLOGY/C YTOLOGY ORDERABLES documented in this encounter Visit Diagnoses Not on filedocumented in this encounter
--- OUTSIDE RECORDS SUMMARY | 2024-04-29 13:54 | XMS_ITS | Encounter Summary ---
Author Organization [facility] Address [address] [place] [address]. [place], [place] [address] [place] [address] Care Team Providers Care Correspondence Section Supervisor Name Role Phone Elpidio Serrato MD Primary Care Provider Reason for Visit * Reason Comments Lab (SCAN) Encounter Details Date Type Department Care Team (Latest Contact Info) Description 02/20/2024 Scan HEALTH INFO [facility] Scanned, Doc Med Group Lab (SCAN) Social History Tobacco Use Types Packs/Day Years [...] st Contact Info) Description 07/13/2024 1:40 PM PORT PATROL OFFICER Office Visit [facility] Medical Group Multispecialty Care - [facility] [address] [facility], [address] [place] [address] Kirill Montelongo MD [address] [place] [address] documented as of this encounter Procedures Procedure Name Priority Date/Time Associated Diagnosis Comments OUTSIDE LAB (SCAN ORDER) 02/20/2024 documented in this encounter Results * OUTSIDE LAB (SCAN ORDER) (02/20/2024) 02/20/2024 us Doc Med [facility] Scanned SCANNING Final Resu lt documented in this encounter Visit Diagnoses Not on filedocumented in this encounter Additional Health Concerns Assessment Noted Time PHQ-9 Depression Total Score: 0 08/14/19 24 7:35 AM CDT documented as of this encounter Care Teams Correspondence Section Supervisor Relationship Specialty Start Date End Date Elpidio Serrato MD [address] [place] [address] PCP - General INTERNAL MEDICINE 06/19/18 documented as of this encounter
--- OUTSIDE RECORDS SUMMARY | 2024-04-29 13:54 | XMS_ITS | Encounter Summary ---
Author Organization [facility] Address [address] [place] [address]. [place], [place] [address] [place] [address] Care Team Providers Care Associate Automation Engineer Name Role Phone Elpidio Serrato MD Primary Care Provider [phone] Reason for Visit * Reason Comments Cellulitis Follow up on celluli tis R foot. Encounter Details Date Type Department Care Team (Late st Contact Info) Description 03/05/2024 3:00 PM CDT Office Visit [facility] Medical Group Family & Internal Medicine [address] [phone] Elpidio Serrato MD [address] [place] [address] Cellulitis (Follow up on cellulitis R foot. ) Social History Tobacco Use Types Packs/Day [...] Sign Reading Time Taken Comments Blood Pressure 116/50 03/05/2024 2:57 PM CDT Pulse 83 03/05/2024 2:57 PM CDT Temperature 36.6 ??C (97.9 ??F) 03/05/2024 2:57 PM CD T Respiratory Rate 16 03/05/2024 2:57 PM CDT Oxygen Saturation 99% 03/05/2024 2:57 PM CDT Inhaled Oxygen Concentration - - Weight 87.7 kg (193 lb 6.4 oz) 03/05/2024 2:57 P M CDT Height 152.4 cm (5') 03/05/2024 2:57 PM CDT Body Mass Index 37.77 03/05/2024 2:57 PM CDT documented in this encounter Progress Notes * Talia Jones MA - 03/05/2024 3:00 PM CDT 1. Are you allergic to eggs, chicken or chicken feathers? No 2. Do you currently have an illness or fever? No 3. Have you ever had an allergic reaction to the influenza vaccine? No 4. Do you have Guillain-Warners Syndrome? No Flu vaccine administered in Right Deltoid. No flashback seen and no adverse reactions were observedwhile the patient was in the clinic. Pt left clinic in no acute distress. Verified by: TLL. * Elpidio Serrato MD - 03/05/2024 3:00 PM CDT Images from the original note were not included. Office Progress Note Reason for Visit: Cellulitis (Follow up on cellulitis R foot. ) History of Present Illness: She is here today for follow-up on cellulitis of her right foot. She was treated with antibiotics and then had another round of antibiotics because symptoms were not resolved. She feels that her leg is much improved and has no redness. No fever or chills. No pain in that foot. She has not noticed swelling in the foot. ROS: Review of Systems All other systems [...] MG tablet 1 tablet (40 mg total). BD PEN NEEDLE WENDY 2ND GEN 32G X 4 MM Misc USE DIRECTED 3 TIMES A DAY clopidogrel (PLAVIX) 75 MG tablet Take 1 tablet (75 mg total) by mouth daily. COMBIGAN 0.2-0.5 % ophthalmic solution INSTILL 1 DROP INTO BOTH EYES TWICE A DAY Cyanocobalamin (VITAMIN B-12) [address] 5,000 mcg under the tongue daily. diclofenac sodium (VOLTAREN) 1 % gel Apply 4 g topically 4 (four) times daily. empagliflozin (JARDIANCE) 10 MG tablet Take 1 tablet (10 mg total) by mouth daily. furosemide (LASIX) 20 MG tablet Take 0.5 tablets (10 mg total) by mouth daily. Glucose Blood test strip by in vitro route. HUMALOG KWIKPEN 100 UNIT/ML injection (PEN) insulin glargine (LANTUS) 100 UNIT/ML injection (PEN) Inject 17 Units into the skin every morning. latanoprost 0.005 % ophthalmic solution Apply 1 drop to eye. levothyroxine 88 MCG tablet Take 1 tablet (88 mcg total) by mouth daily. metoprolol succinate ER (TOPROL-XL) 25 MG 24 hr tablet Take 0.5 tablets (12.5 mg total) by mouth daily. mupirocin (BACTROBAN) 2 % ointment NOVOLOG FLEXPEN 100 UNIT/ML injection (PEN) oxyCODONE immediate release (ROXICODONE) 5 MG immediate release tablet 1 tablet (5 mg total). semaglutide (OZEMPIC, 1 MG/DOSE,) 2 MG/1.5ML injection (PEN) INJECT 1MG SUBCUTANEOUSLY ONCE A WEEK SENOKOT 8.6 MG tablet 1 tablet (8.6 mg total). vitamin D2, ergocalciferol, 19243 UNITS capsule Take 1 capsule (1.25 mg total) by mouth weekly. No current facility-administered medications on file prior to visit. Allergies: Allergies Allergen Reactions Pseudoephedrine Tachycardia Valacyclovir Other (see comment) put me in renal failure Medical History: Past Medical History: Diagnosis Date Cataract Closed tibia fracture Diabetes mellitus (CMS/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 Treviño CARPAL TUNNEL RELEASE Bilateral [...] Exam Vitals and nursing note reviewed. Constitutional: General: She is awake. Appearance: Normal appearance. Cardiovascular: Rate and Rhythm: Normal rate and regular rhythm. Heart sounds: Normal heart sounds. Pulmonary: Effort: Pulmonary effort is normal. Breath sounds: Normal breath sounds and air entry. Skin: Comments: No erythema or swelling of right foot. No skin breakdown. Neurological: Mental Status: She is alert. Psychiatric: Behavior: Behavior is cooperative. Filed Vitals: 03/05/24 1457 BP: 116/50 Pulse: 83 Resp: 16 Temp: 97.9 ??F (36.6 ??C) TempSrc: Skin SpO2: 99% Weight: 87.7 kg (193 lb 6.4 oz) Height: 1.524 m (5') Diagnoses/Impression: 1. Cellulitis and abscess of toe of right foot 2. Need for COVID-19 vaccine PFIZER COVID-19 (12+) MRNA, LNP-S, PF, UMM-SUCROSE 30 MCG/0.3 ML 3. Need for immunization against influenza [70465] Flu Vaccine, Split Virus, High Dose 65+ Years Recommendations and Plan: 1. Cellulitis and abscess of toe of right foot (Primary) Finish antibiotics as prescribed Call if increased redness or pain. 2. Need for COVID-19 vaccine PFIZER COVID-19 (12+) MRNA, LNP-S, PF, UMM-SUCROSE 30 MCG/0.3 ML 3. Need for immunization against influenza - [38456] Flu Vaccine, Split Virus, High Dose 65+ Years Orders Placed This Encounter [[id number]] Flu Vaccine, Split Virus, High Dose 65+ Years PFIZER COVID-19 (12+) MRNA, LNP-S, PF, UMM-SUCROSE 30 MCG/0.3 ML Cyanocobalamin (VITAMIN B-12) 5000 MCG SL Tab NOVOLOG FLEXPEN 100 UNIT/ML injection (PEN) HUMALOG KWIKPEN 100 UNIT/ML injection (PEN) BD PEN NEEDLE WENDY 2ND GEN 32G X 4 MM Misc mupirocin (BACTROBAN) 2 % ointment PCP: ELPIDIO SERRATO MD 03/07/2024 documented in this encounter Plan of Treatment Upcoming Encounters Date Type Department Care Team (Late st Contact Info) Description 07/13/2024 1:40 PM PLATFORM SUPERVISOR Office Visit [facility] Medical Group Multispecialty Care - [facility] [address] [facility], [address] [place] [address] Kirill Montelongo MD [address] [place] [address] documented as of this encounter Visit Diagnoses Diagnosis Cellulitis and abscess of toe of right foot- Primary Need for COVID-19 vaccine Need for immunization against influenza Need for prophylactic vaccination and inoculation against influenza documented in this encounter Additional Health Concerns Assessment Noted Time PHQ-9 Depression Total Score: 0 08/14/19 24 7:35 AM CDT documented as of this encounter Care Teams Associate Automation Engineer Relationship Specialty Start Date End Date Elpidio Serrato MD [address] [place] [address] PCP - General INTERNAL MEDICINE 06/19/18 documented as of this encounter
--- OUTSIDE RECORDS SUMMARY | 2024-04-29 13:54 | XMS_ITS | Referral Summary ---
Author Organization [facility] Address [address] [place] [address] Care Team Providers Care Flat Finisher Name Role Phone Unavailable Primary Care Provider Unavailabl e Source Comments [facility],non-owned Affiliates and Associated Physician Practices is amultiple site organization consisting of ambulatory clinics and hospital sitesin [place], [place], [place] and [place]. This disclosure is being madepursuant to the Care Everywhere program and may not contain all information available regarding this patient. Last updated 18.[facility] Social History Tobacco Use Types Packs/Day Years Used Date Smoking Tobacco: Never Assessed Sex and Gender Information Value Date Recorded Sex Assigned at Not on file Gender Identity Not on file Sexual Orientation Not on file Plan of Treatment Not on file
--- OUTSIDE RECORDS SUMMARY | 2024-04-29 13:54 | XMS_ITS | Clinical Summary ---
Author Organization [facility] Address [address] [place] [address]. [place], [place] [id number] [place] [address] Care Team Providers Care Bill Poster Installer Name Role Phone Elpidio Serrato MD Primary Care Provider [phone] Allergies Active Allergy Reactions Criticality Noted Date Comments Pseudoephedrine Tachycardia Valacyclovir Other (see comment) 08/12/2018 put me in renal failure Medications latanoprost 0.005 % ophthalmic solution Apply 1 drop to eye. 9 Active vitamin D2, ergocalciferol , 51946 UNITS capsule Take 1 capsule (1.25 mg total) by mouth weekly. 1 Active Glucose Blood test strip by in vitro route. 9 Active insulin glargine (LANTUS) 100 UNIT/ML injection (PEN) Inject 17 Units into the skin every morning. 8 Active levothyroxine 88 MCG tablet Take 1 tablet (88 mcg total) by mouth daily. 1 9 Active aspirin EC (ECOTRIN) 81 MG tablet Take 1 tablet (81 mg total) by mouth daily. Active COMBIGAN 0.2-0.5 % ophthalmic solution INSTILL 1 DROP INTO BOTH EYES TWICE A DAY 0 Active semaglutide (OZEMPIC, 1 MG/DOSE,) 2 MG/1.5ML injection (PEN) INJECT 1MG SUBCUTANEOUSLY ONCE A WEEK 1 Active empagliflozin (JARDIANCE) 10 MG tablet Take 1 tablet (10 mg total) by mouth daily. 1 Active furosemide (LASIX) 20 MG tablet Take 0.5 tablets (10 mg total) by mouth daily. 4 Active metoprolol succinate ER (TOPROL-XL) 25 MG 24 hr tablet Take 0.5 tablets (12.5 mg total) by mouth daily. 4 Active clopidogrel (PLAVIX) 75 MG tablet Take 1 tablet (75 mg total) by mouth daily. 4 Active SENOKOT 8.6 MG tablet 1 tablet (8.6 mg total). 4 Active acetaminophen CR (TYLENOL) 650 MG Tab CR 8 hr tablet Take 1 tablet (650 mg total) by mouth. 4 Active oxyCODONE immediate release (ROXICODONE) 5 MG immediate release tablet 1 tablet (5 mg total). 4 Active atorvastatin (LIPITOR) 40 MG tablet 1 tablet (40 mg total). 4 Active diclofenac sodium (VOLTAREN) 1 % gel Apply 4 g topically 4 (four) times daily. 100 g 4 Active Cyanocobalamin (VITAMIN B-12) [address] 5,000 mcg under the tongue daily. 4 025 Active NOVOLOG FLEXPEN 100 UNIT/ML injection (PEN) 4 Active HUMALOG KWIKPEN 100 UNIT/ML injection (PEN) 4 Active BD PEN NEEDLE WENDY 2ND GEN 32G X 4 MM Misc USE DIRECTED 3 TIMES A DAY 4 Active mupirocin (BACTROBAN) 2 % ointment 4 Active Active Problems Problem Noted Date Diagnosed Date Congestive heart failure ([facility]) 11/11 Overview (02/25/2024): HFmrEF, last EF per TTE 45%, hypervolemic on exam today. Morbid (severe) obesity due to excess calories 0 08/14/2023 Body mass index (BMI) 40.0-44.9, adult 4 Age-related osteoporosis wit hout current pathological fracture 04/29/2023 Chronic kidney disease (CKD) stage G3b/A1, moderately decreased glomerular filtration rate (GFR) between 30-44 mL/min/1.73 square meter and albuminuria creatinine ratio less than 30* ([facility]) 12/25/2021 Overview (08/14/2023): Last Assessment & Plan: Pt is showing progressive loss of kidney function. She is on the kidney protective medications. I will recheck kidney function with next labs. Osteoarthritis of multiple joints 11/27/2021 Vitamin D deficiency 04/01/2019 Overview (10/12/2019): Last Assessment & Plan: Continue vitamin D supplementation, may be important if you encounter COVID-19. Stay home but get some sun when it comes out. Nuclear sclerotic cataract of both eyes 06/11/19 19 Overview (10/12/2019): Last Assessment & Plan: NVS. Continue to Monitor. I am scribing in the presence of Dr. Thomas on 07/03/2019, HALLEY Ramos. I have examined the patient and agree with the resident/fellow's findings and plan as documented. Niranjan Thomas MD Benign essential hypertension 02/10/2018 Type 2 diabetes mellitus ([facility]) 12/07 Overview (08/14/2023): Last Assessment & Plan: Diabetes is improving with treatment. Continue current treatment regimen. but stop glimepiride; take insulin before eating and try not to miss doses. See Monserrat Vann' note. Continue use of the CGM for safety. Diabetes will be reassessed in 6 months. Last Assessment & Plan: Current doses: Lantus, 48 units Humalo - 15 units ac Scripts are up to date, and labs are OK for now. No changes to meds or insulin doses. Last Assessment & Plan: Glucose control appears to be excellent. The biggest concern is lows at night. I suggest skipping the metformin in the evening. If lows persist, then decrease Lantus to 38 units. Otherwise, no changes. A1c is ordered for next labs. Primary open angle glaucoma (POAG) of both eyes, moderate stage 09/05/2015 Overview (08/14/2023): Last Assessment & Plan: Patient returns S/P SLT OD -05/28/2019 -IOP Today by Ta 24/04 by tonopen. -A1C was around 7% at last visit on March 31. RTC 5 months for intraocular pressure (IOP) by applanation and HANS Drops: Combigan BID OU Latanoprost QHS OD Last Assessment & Plan: Doing well without concerns IOP at goal Continue current drops Follow 6 months with HVf/OCT OU Hypothyroidism 11/13/2014 Overview (08/14/2023): Last Assessment & Plan: Thyroid functions are normal on current replacement, 88 mcg. No changes. Last Assessment & Plan: Continue current replacement, 88 mcg. Will check TSH today Last Assessment & Plan: TSH has been OK, will recheck. No changes. Actinic keratosis 07/17/2012 Nonproliferative diabetic retinopathy ([facility]) 11/03/2009 Osteoarthritis of knee 12/16/2007 Overview (08/12/2018): Last Assessment & Plan: Follow-up with director of orthopedics. Hyperlipidemia 07/21/2006 Overview (08/14/2023): Last Assessment & Plan: Lipid abnormalities are improving with treatment. LDL is 97 mg/dl. The patient was referred to the bricklayer paving brick. and Pharmacotherapy as ordered. Lipids will be reassessed in 6 months. Last Assessment & Plan: Lipid abnormalities are improving with treatment. LDL is 47 in 06/2018. Continue simvastatin 40 mg daily Lipids will be reassessed in 6 months. Last Assessment & Plan: LDL is much higher than it should be at 140 mg/dl. Pt states that she misses evening medications at times. Rec: Take atorvastatin in the morning, then recheck lipid panel. Obesity 07/21/2006 Overview (10/12/2019): Last Assessment & Plan: Obesity is unchanged. She is less active after fci. Discussed the patient's BMI. The BMI is too high, and is causing serious morbidities. . General weight loss/lifestyle modification strategies discussed (elicit support from others; identify saboteurs; non-food rewards, etc). Pharmacotherapy as ordered. Given bilateral knee pain, recommended water based exercises Encounters Date Type Department Care Team Description 03/05/2024 3:00 PM CDT Office Visit [facility] Internal [address] [phone] Elpidio Serrato MD Cellulitis (Follow up on cellulitis R foot. ) 03/05/2024 Travel 02/28/[address] [phone] Elpidio Serrato MD Wound 02/25/2024 2:20 PM CDT Office Visit [facility] Internal [address] [address] Elpidio Serrato MD ER F/U ([facility] ER f/u 02/19/24 for Rt foot pain/Danis ER f/u 02/19/24 for cellulitis); Results (Patient would like to talk about results of nerve conduction. ) 02/25/2024 Travel 02/21/[address] [address] Elpidio Serrato MD Results; Referral (Neurology ) 02/20/2024 Scan [employer] INFO SRVCS Scanned, [facility] Lab (SCAN) 02/19/2024 11:00 AM CDT Office Visit [facility] Multispecialty Care - [address], [address] [place] [address] Elpidio Serarto MD Govindarajan, Raghav, MD EMG Testing (BUE*ULNAR NERVE PALSY OF LEFT LOWER EXTREMITIES) 02/19/2024 8:08 AM CDT - 02/19/2024 9:49 AM CDT Emergency [facility] Emergency Room [address] [address] Niranjan Zee PA Foot Pain Discharge Disposition: Home or Self Care (Routine Discharge) 02/19/2024 Scan [facility] INFO SRVCS Scanned, [facility] Image (SCAN) 02/19/2024 Travel 02/10/2024 1:00 PM CDT Office Visit [facility] Family & Internal Medicine [address] [address] Elpidio Serrato MD Arm Pain (Patient c/o Lt Arm pain since CABG X3 performed at [facility]. Patient notes she has numbness/ tingling in arm, decreased strength in hand and inability to make a fist with left hand. ) 02/10/2024 Travel 02/06/2024 Scan [facility] INFO SRVCS Scanned, [facility] from Last 3 Months Immunizations Name Administration Dates Next Due Arexvy Respiratory Syncytial Virus (RSV, adjuvanted) 0.5 mL, PF 04/20/2023 Fluzone High Dose (IIV, triv alent, 0.5mL) 03/05/2024 Fluzone High Dose - >Age 65 (Prefilled Syringe) 02/05/2023,02/28/2022,02/15/2021,2019,03/06/2019 PFIZER COVID-19 (12+) MRNA, LNP-S, PF, UMM-SUCROSE, 30 MCG/0.3 ML (COMIRNATY) 03/05/2024 PFIZER COVID-19 BIVALENT (12 +) mRNA, LNP-S, PF, 30 MCG/0.3 ML DOSE 02/28/2022 Pneumococcal (Prevnar 13) 08/12/2018 Pneumococcal(Ppv 23)Aka Pneumovax 04/29/2017 Zoster (Zostavax) 62319 Unt/0.65Ml 04/29/2017 Family History Medical History Relation Comments Diabetes Brother Diabetes Mother Heart Attack Mother Kidney Disease Mother Open Heart Mother Diabetes Sister Relation Status Comments Brother Father Mother (Age 71) Sister Social History Tobacco Use Types Packs/Day Years Used Date Smoking Tobacco: Never Smokeless Tobacco: Never Tobacco Cessation:Counseling Given: Not Answered Alcohol Use Standard Drinks/Week Comments No 0 [...] Orientation Straight 08/12/2018 9: 05 AM CDT Last Filed Vital Signs Vital Sign Reading [...] Mass Index 37.77 03/05/2024 2:57 PM CDT Plan of Treatment Upcoming Encounters Date Type Department Care Team (Late st Contact Info) Description 07/13/2024 1:40 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 Office Visit [facility] Medical Group Multispecialty Care - [address], [address] [place] [id number] Kirill Montelongo MD [address] [place] [address] Health Maintenance Due Date Last Done Comments Colorectal Cancer Screening Colonoscopy (10 Years) 1950 Kidney Health Evaluation 1950 Lipid Panel 1950 Diabetes: Retinopathy Eye Exam 1967 Hepatitis C 1967 DTaP, Tdap and Td Vaccines (1 - Tdap) 1968 Zoster Vaccines (2 of 3) 06/24/2017 04/29/2017 Annual Medicare Wellness Visit 02/16/2022 02/15/2021 Hemoglobin A1C 04/29/2024 10/29/2023, 06/13, 10/23/2021, Additional history exists Pneumococcal Vaccine: 65+ Years Completed 08/12/2018, 04/29/2017 Dexa Scan (General) Completed 12/03/2022, RSV Immunization or 60+ Years Completed 04/20/2023 COVID-19 Vaccine Completed 03/05/2024, 01/2023, 02/28/2022, Additional history exists Influenza Adult Completed 03/05/2024, 01/12, 02/28/2022, Additional history exists Meningococcal Vaccine Aged Out No terry jeffrey eligible based on patient's age to complete this topic RSV Immunizations Under 20 Months Aged Out No longer eligible based on patient's age to complete this topic Procedures Procedure Name Priority Date/Time Associated Diagnosis Comments OUTSIDE LAB (SCAN ORDER) 02/20/2024 EMG Routine 02/19/2024 11:00 AM CDT 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 02/20/2024 us [facility] Scanned SCANNING Final Resu lt * NCVS\EMG (OFallon) (02/19/2024 11:00 AM CDT) Narrative Kirill Montelongo MD - 02/19/2024 11:00 AM CDT Kirill Montelongo MD ? 02/19/2024 ??9:35 PM For sensory nerve conduction studies, the amplitude is measured [id number], the latency reported is the distal peak latency, and the conduction velocity, if measured, is determined from onset latencies and is over the forearm. For motor nerve conduction studies, the amplitude is measured [id number], the latency reported is the distal onset latency, the conduction velocity is calculated over the forearm, and the F wave latency is the minimum latency. Unless otherwise noted, the hand temperature was monitored continuously and remained between 32??C and 36??C during the performance of the NCSs.The study was performed with a concentric needle electrode. Fibrillation and fasciculation activity is graded from none (0) to continuous (4+). The configuration and recruitment pattern of motor unit action potentials under voluntary control, if not normal, are described below. Abbreviations: NCS= nerve conduction study SNAP= sensory nerve action potential CMAP= compound muscle action potential MUP= motor unit potential EMG= electromyogram F IBS= fibrillations PS W's= positive sharp waves Summary of findings Bilateral median motor NCS is normal Left ulnar motor NCS shows slowing across the elbow Right ulnar motor NCS is normal Bilateral median sensory NCS is absent Left ulnar sensory NCS is absent Bilateral radial sensory NCS shows normal snap amplitude Right ulnar sensory NCS shows normal snap amplitude Right median and ulnar orthodromic mixed NCS shows prolonged latency, and small amplitude Left median and ulnar orthodromic mixed NCS is absent Needle EMG of the left upper limb shows +1 fibs and PSW's with chronic neurogenic motor potentials in first dorsal interosseous. 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 ??There is bilateral mild median mononeuropathy at the wrist [carpal tunnel syndrome]. ??There is no evidence of a superimposed cervical radiculopathy. us Elpidio Serrato MD NEUROLOGY ORDERABLES Final Res ult * XR FOOT RT 3V (02/19/2024 8:58 AM CDT) Anatomical Region Laterality Modality Foot Radiographic Luba ging 02/19/2024 9:03 AM CDT Impressions 02/19/2024 9:09 AM CDT IMPRESSION:===== ?? Subtle abnormalities of the second third and fourth toes. ??These could be areas of developmental abnormality. ??Focal periosteal reaction is not excluded. ??Correlate clinically. Osteoarthritis of the ankle and foot. Large calcaneal spurs at the insertion of Achilles tendon and plantar fascia. Severe atherosclerotic disease noted. Referred By: ?? Interpreted By: Jason Lowery MD, 02/19/2024 9:03 AM Narrative 02/19/2024 9:09 AM CDT [place] [id number] EXAMINATION: Right foot 3 views EXAM DATE/TIME: 02/19/2024 8:44 AM REASON FOR EXAM: ??pain ?? COMPARISON: None TECHNIQUE: AP, oblique, and lateral views of the right foot were obtained. FINDINGS: Subtle cortical abnormalities in the proximal phalanges of the second third and fourth toes is noted. ??Appearance is somewhat nonspecific with subtle cortical prominence in these regions. ??No definite fracture seen. Mild osteoarthritis first metatarsal-phalangeal joint with hallux valgus deformities noted. ??Large calcaneal spurs are seen. ??Spurring the midfoot is noted. ??Spurring the tibiotalar joint is seen. ??Joint space narrowing with likely spurring in the second and third and fourth tarsometatarsal joints is noted. Enthesopathy or other etiology of the base of the fifth metatarsals noted. Vascular calcifications are noted. Findings are suspicious for atherosclerotic change.. No definite or obvious cortical destruction is seen. ===== Procedure Note Jason Lowery MD - 02/19/[address] [address] EXAMINATION: Right foot 3 views EXAM DATE/TIME: 02/19/2024 8:44 AM REASON FOR EXAM: pain COMPARISON: None TECHNIQUE: AP, oblique, and lateral views of the right foot wereobtained. FINDINGS: Subtle cortical abnormalities in the proximal phalanges of thesecond third and fourth toes is noted. Appearance is somewhat nonspecificwith subtle cortical prominence in these regions. No definite fractureseen. Mild osteoarthritis first metatarsal-phalangeal joint with hallux valgusdeformities noted. Large calcaneal spurs are seen. Spurring the midfootis noted. Spurring the tibiotalar joint is seen. Joint space narrowingwith likely spurring in the second and third and fourth tarsometatarsaljoints is noted. Enthesopathy or other etiology of the base of the fifth metatarsalsnoted. Vascular calcifications are noted. Findings are suspicious foratherosclerotic change.. No definite or obvious cortical destruction is seen. ===== IMPRESSION:===== Subtle abnormalities of the second third and fourth toes. These could beareas of developmental abnormality. Focal periosteal reaction is notexcluded. Correlate clinically. Osteoarthritis of the ankle and foot. Large calcaneal spurs at the insertion of Achilles tendon and plantarfascia. Severe atherosclerotic disease noted. Referred By: Interpreted By: Jason Lowery MD, 02/19/2024 9:03 AM [facility] Final Resul t * IMAGE GENERIC (02/19/2024) Anatomical Region Laterality Modality Other 02/19/2024 [facility] Scanned SCANNING Final Resu lt from Last 3 Months or Most Recently Relevant to Health Maintenance Insurance [facility] MEDICARE Care Teams Bill Poster Installer Relationship Specialty Start Date End Date Elpidio Serrato MD [address] [place] [id number] PCP - General INTERNAL MEDICINE 06/19/18
--- OUTSIDE RECORDS SUMMARY | 2024-04-29 13:55 | XMS_ITS | Encounter Summary ---
Author Organization [facility] Address [facility] [facility]. 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 Procedures [facility] Elpidio Serrato MD [address] [place] [address] Phone: tel: fax: Kirill Montelongo MD [address] [place] [address] Phone: tel: fax: Referral ID Status Reason Start Date Expiration Date V isits Requested Visits Authorized [id number] Closed Office Procedure 02/10/2024 02/09/2025 1 1 Encounter Details Date Type Department Care Team (Latest Contact Info) Description 02/19/2024 11:00 AM CDT Office Visit [facility] Multispecialty Care - [address], [address] [place] [address] Elpidio Serrato MD [address] [place] [address] Kirill Montelongo MD [address] [place] [id number] EMG Testing (BUE*ULNAR NERVE PALSY OF LEFT LOWER EXTREMITIES) Social History Tobacco Use Types Packs/Day Years [...] as of this encounter Progress Notes * Kirill Montelongo MD - 02/19/2024 11:00 AM CDT EMG report * Elpidio Serrato MD - 02/19/2024 11:00 AM CDT Severe ulnar nerve neuropathy. Refer to Neurology. documented in this encounter Procedure Notes * Kirill Montelongo MD - 02/19/2024 11:00 AM CDTAssociated Order(s): EMG For sensory nerve conduction studies, the amplitude is measured [id number], the latency reported is the distal peak latency, and the conduction velocity, if measured, is determined from onset latencies and is over the forearm. For motor nerve conduction studies, the amplitude is measured [id number], the latency reported is the distal onset [...] severe left ulnar neuropathy across the elbow. There is bilateral mild median mononeuropathy at the wrist [carpal tunnel syndrome]. There is no evidence of a superimposed cervical radiculopathy. 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 02/19/2024 ??9:35 PM For sensory nerve conduction studies, the amplitude is measured [id number], the latency reported is the distal peak latency, and the conduction velocity, if measured, is determined from onset latencies and is over the forearm. 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
--- OUTSIDE RECORDS SUMMARY | 2024-04-29 13:55 | XMS_ITS | Encounter Summary ---
Author Organization [facility] Address [address] [place] [address]. 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 Patient notes she has numbness/ tingling in arm, decreased strength in hand and inability to make a fist with left hand. Encounter Details Date Type Department Care Team (Late st Contact Info) Description 02/10/2024 1:00 PM CDT Office Visit [facility] Family & Internal Medicine [address] [address] Elpidio Serrato MD [address] [place], [place] [id number] Arm Pain (Patient c/o Lt Arm pain since CABG X3 performed at [facility]. Patient notes she has numbness/ tingling in arm, decreased strength in hand and inability to make a fist with left hand. ) Social History Tobacco Use Types Packs/Day [...] Sign Reading Time Taken Comments Blood Pressure 112/50 02/10/2024 1:26 PM CDT Pulse 79 02/10/2024 1:26 PM CDT Temperature 36.6 ??C (97.9 ??F) 02/10/2024 1:26 PM CD T Respiratory Rate 16 02/10/2024 1:26 PM CDT Oxygen Saturation 98% 02/10/2024 1:26 PM CDT Inhaled Oxygen Concentration - - Weight 88.1 kg (194 lb 3.2 oz) 02/10/2024 1:26 P M CDT Height 152.4 cm (5') 02/10/2024 1:26 PM CDT Body Mass Index 37.93 02/10/2024 1:26 PM CDT documented in this encounter Progress Notes * Elpidio Serrato MD - 02/10/2024 1:00 PM CDT Images from the original note were not included. Office Progress Note Reason for Visit: Arm Pain (Patient c/o Lt Arm pain since CABG X3 performed at [facility]. Patient notes she has numbness/ tingling in arm, decreased strength in hand and inability to make a fist with left hand. ) History of Present Illness: She is here today complaining of numbness and tingling and decreased strength in her left arm into her left hand that has been going on since she had bypass surgery. She states that she had noticed this initially in the hospital but did not think much of it and since that time it has been persistent. She feels that this is mainly in her fourth and fifth fingers possibly into her third finger. Sheis unable to make a tight closed fist. She does not recall a specific injury. She feels this has been going on since she awoke from anesthesia. She had no problems with this hand prior. She is right-handed. ROS: Review of Systems All other systems [...] MG tablet 1 tablet (40 mg total). clopidogrel (PLAVIX) 75 MG tablet Take 1 tablet (75 mg total) by mouth daily. COMBIGAN 0.2-0.5 % ophthalmic solution INSTILL 1 DROP INTO BOTH EYES TWICE A DAY empagliflozin (JARDIANCE) 10 MG tablet Take 1 tablet (10 mg total) by mouth daily. furosemide (LASIX) 20 MG tablet Take 0.5 tablets (10 mg total) by mouth daily. insulin glargine (LANTUS) 100 UNIT/ML injection (PEN) [...] tablet (8.6 mg total). vitamin D2, ergocalciferol, 26212 UNITS capsule Take 1 capsule (1.25 mg total) by mouth weekly. Glucose Blood test strip by in vitro route. No current facility-administered medications on file prior to visit. Allergies: Allergies Allergen Reactions Pseudoephedrine Tachycardia Valacyclovir Other (see comment) put me in renal failure Medical History: Past Medical History: Diagnosis Date Cataract Closed tibia fracture Diabetes mellitus ([facility]) Disease of thyroid gland Glaucoma Hypertension Surgical History: Past Surgical History: Procedure Laterality Date APPENDECTOMY CABG, ARTERIAL, THREE 01/20/2024 Performed at [facility] by Dr. Treviño CARPAL TUNNEL RELEASE [...] effort is normal. Breath sounds: Normal breath sounds. Musculoskeletal: Right hand: Normal. Left hand: No swelling, tenderness or bony tenderness. Normal range of motion. Decreased strength of finger abduction and thumb/finger opposition. Decreased sensation of the ulnar distribution. Normal capillary refill. Normal pulse. Cervical back: Full passive range of motion without pain, normal range of motion and neck supple. Neurological: Mental Status: She is alert and oriented to person, place, and time. Cranial Nerves: Cranial nerves 2-12 are intact. Motor: Weakness present. Deep Tendon Reflexes: Reflex Scores: Tricep reflexes are 2+ on the right side and 2+ on the left side. Bicep reflexes are 2+ on the right side and 2+ on the left side. Brachioradialis reflexes are 2+ on the right side and 2+ on the left side. Psychiatric: Behavior: Behavior is cooperative. Filed Vitals: 02/10/24 1326 BP: 112/50 Pulse: 79 Resp: 16 Temp: 97.9 ??F (36.6 ??C) TempSrc: Skin SpO2: 98% Weight: 88.1 kg (194 lb 3.2 oz) Height: 1.524 m (5') Diagnoses/Impression: 1. 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 Check NCS/EMG We discussed that this is likely to improve, but there is no certainty. This may take months to resolve. If symptoms worsen patient instructed to call Discussed ROM exercises. - NCVS\EMG ([facility]); Future I personally spent a total of 32 minutes on the day of the encounter. This includes [id number] and eek-gdqq-ug-face time I provided on the day of the encounter & excludes time spent performing separately reportable services. Orders Placed This Encounter NCVS\EMG ([facility]) furosemide (LASIX) 20 MG tablet metoprolol succinate ER (TOPROL-XL) 25 MG 24 hr tablet clopidogrel (PLAVIX) 75 MG tablet SENOKOT 8.6 MG tablet acetaminophen CR (TYLENOL) 650 MG Tab CR 8 hr tablet oxyCODONE immediate release (ROXICODONE) 5 MG immediate release tablet atorvastatin (LIPITOR) 40 MG tablet PCP: ELPIDIO SERRATO MD 02/15/2024 documented in this encounter Plan of Treatment Upcoming Encounters Date Type Department Care Team (Late st Contact Info) Description 07/13/2024 1:40 PM ROVING FRAME TENDER Office Visit [facility] Care - [facility] [address] [facility], [address] [place] [phone] Kirill Montelongo MD [address] [place] [address] documented as of this encounter Results * NCVS\EMG ([facility]) (02/19/2024 11:00 AM CDT) Narrative Kirill Montelongo MD - 02/19/2024 11:00 AM CDT Kirill Montelongo MD ? 02/19/2024 ??9:35 PM For sensory nerve conduction studies, the amplitude is measured [id number], the latency reported is the distal peak latency, and the conduction velocity, if measured, is determined from onset latencies and is over the forearm. 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
--- OUTSIDE RECORDS SUMMARY | 2024-04-29 13:55 | XMS_ITS | Encounter Summary ---
Author Organization [facility] Address [address] [place] [address]. [place], [place] [phone] [place] [address] Care Team Providers Care Transit Mechanic Name Role Phone Elpidio Serrato MD Primary Care Provider [phone] Reason for Visit * Reason Comments Image (SCAN) Encounter Details Date Type Department Care Team (Latest Contact Info) Description 02/19/2024 Scan HEALTH INFO SRVCS Scanned, Doc Med Group Image (SCAN) Social History Tobacco Use Types Packs/Day [...] st Contact Info) Description 07/13/2024 1:40 PM LONG TERM CARE PHARMACIST Office Visit [facility] Multispecialty Care - [facility] [address] [facility], [address] [place] [address] Kirill Montelongo MD [address] [place] [address] documented as of this encounter Procedures Procedure Name Priority Date/Time Associated Diagnosis Comments IMAGE GENERIC 02/19/2024 documented in this encounter Results * IMAGE GENERIC (02/19/2024) Anatomical Region Laterality Modality Other 02/19/2024 us Doc Med Group Scanned SCANNING Final Resu lt documented in this encounter Visit Diagnoses Not on filedocumented in this encounter Additional Health Concerns Assessment Noted Time PHQ-9 Depression Total Score: 0 08/14/19 24 7:35 AM CDT documented as of this encounter Care Teams Transit Mechanic Relationship Specialty Start Date End Date Elpidio Serrato MD [address] [place] [address] PCP - General INTERNAL MEDICINE 06/19/18 documented as of this encounter
--- OUTSIDE RECORDS SUMMARY | 2024-04-29 13:55 | XMS_ITS | Encounter Summary ---
Author Organization [facility] Address [address] [place] [address]. [place], [place] [address] [place] [address] Care Team Providers Care Handle Rounder Operator Name Role Phone Elpidio Serrato MD Primary Care Provider [phone] Reason for Visit * Reason Comments Foot Pain Encounter Details Date Type Department Care Team (Late st Contact Info) Description 02/19/2024 8:08 AM CDT - 02/19/2024 9:49 AM CDT Emergency [facility] [place] [address] Niranjan Zee PA [address] [place] [id number] Foot Pain Discharge Disposition: Home or Self Care (Routine Discharge) Social History Tobacco Use Types Packs/Day Years [...] Sign Reading Time Taken Comments Blood Pressure 138/63 02/19/2024 8:04 AM CDT Pulse 82 02/19/2024 8:04 AM CDT Temperature 35.9 ??C (96.7 ??F) 02/19/2024 8:04 AM CD T Respiratory Rate 18 02/19/2024 8:04 AM CDT Oxygen Saturation 99% 02/19/2024 8:08 AM CDT Inhaled Oxygen Concentration - - Weight 88 kg (194 lb 0.1 oz) 02/19/2024 8:04 AM CDT Height 152.4 cm (5') 02/19/2024 8:04 AM CDT Body Mass Index 37.89 02/19/2024 8:04 AM CDT documented in this encounter Discharge Instructions * Discharge Instructions* LYNNE Wick - 02/19/2024 9:45 AM CDT Take medication as prescribed. Follow-up with your primary care provider in 5 to 7 days. Return emergency department symptoms worsen or new concerns. * Attachments The following attachments cannot be sent through Care Everywhere. * Osteoarthritis Discharge Instructions (Sammarinese) documented in this encounter Medications at Time of Discharge acetaminophen CR (TYLENOL) 650 MG Tab CR 8 hr tablet Take 1 tablet (650 mg total) by mouth. 01/28/2024 aspirin EC (ECOTRIN) 81 MG tablet Take 1 tablet (81 mg total) by mouth daily. atorvastatin (LIPITOR) 40 MG tablet 1 tablet (40 mg total). 10/29/2023 clopidogrel (PLAVIX) 75 MG tablet Take 1 tablet (75 mg total) by mouth daily. 01/29/2024 COMBIGAN 0.2-0.5 % ophthalmic solution INSTILL 1 DROP INTO BOTH EYES TWICE A DAY 10/01/2019 diclofenac sodium (VOLTAREN) 1 % gel Apply 4 g topically 4 (four) times daily. 100 g 02/19/2024 empagliflozin (JARDIANCE) 10 MG tablet Take 1 tablet (10 mg total) by mouth daily. 02/06/2021 furosemide (LASIX) 20 MG tablet Take 0.5 tablets (10 mg total) by mouth daily. 02/05/2024 Glucose Blood test strip by in vitro route. 02/01/2009 HUMALOG KWIKPEN 100 UNIT/ML injection (PEN) 01/28/2024 insulin glargine (LANTUS) 100 UNIT/ML injection (PEN) Inject 17 Units into the skin every morning. 05/07/2018 latanoprost 0.005 % ophthalmic solution Apply 1 drop to eye. 06/09/2018 levothyroxine 88 MCG tablet Take 1 tablet (88 mcg total) by mouth daily. 1 05/23/2018 metoprolol succinate ER (TOPROL-XL) 25 MG 24 hr tablet Take 0.5 tablets (12.5 mg total) by mouth daily. 01/29/2024 mupirocin (BACTROBAN) 2 % ointment 12/19/2023 NOVOLOG FLEXPEN 100 UNIT/ML injection (PEN) 08/20/2023 oxyCODONE immediate release (ROXICODONE) 5 MG immediate release tablet 1 tablet (5 mg total). 01/28/2024 semaglutide (OZEMPIC, 1 MG/DOSE,) 2 MG/1.5ML injection (PEN) INJECT 1MG SUBCUTANEOUSLY ONCE A WEEK 02/06/2021 SENOKOT 8.6 MG tablet 1 tablet (8.6 mg total). 02/05/2024 vitamin D2, ergocalciferol, 85387 UNITS capsule Take 1 capsule (1.25 mg total) by mouth weekly. 08/07/2010 methylPREDNISol one, CRISTIANE, (MEDROL DOSEPAK) 4 MG tablet 6 TABLETS ON DAY ONE, 5 TABLETS DAY TWO, 4 TABLETS DAY THREE, 3 TABLETS DAY FOUR, 2 TABLETS DAY FIVE, AND 1 TABLET DAY SIX 1 each 02/19/2024 4 documented as of this encounter ED Notes * LYNNE Wick - 02/19/2024 8:22 AM CDT Images from the original note were not included. ED NOTE Chief Complaint Chief Complaint Patient presents with Foot Pain History of Present Illness 73-year-old female presenting to the emergency department for evaluation of pain to right foot started around 2:30 AM. Have a sharp pain to anterior aspect of foot and ankle. Does worsen with weightbearing and range of motion of the foot. Denies any known injury or trauma. Does report having open heart surgery within the past month denies any significant swelling chest pain or shortness of breath. Denies any erythema. Medical History ALLERGIES: Review of patient's allergies indicates: Allergen Reactions Pseudoephedrine Tachycardia Valacyclovir Other (see comment) put me in renal failure MEDICATIONS: Prior to Admission medications Medication Sig Start Date End Date Taking? Authorizing Provider diclofenac sodium (VOLTAREN) 1 % gel Apply 4 g topically 4 (four) times daily. 02/19/24 Yes LYNNE Wick methylPREDNISolone, CRISTIANE, (MEDROL DOSEPAK) 4 MG tablet 6 TABLETS ON DAY ONE, 5 TABLETS DAY TWO, 4 TABLETS DAY THREE, 3 TABLETS DAY FOUR, 2 TABLETS DAY FIVE, AND 1 TABLET DAY SIX 02/19/24 Yes LYNNE Wick acetaminophen CR (TYLENOL) 650 MG Tab CR 8 hr tablet Take 1 tablet (650 mg total) by mouth. 01/28/24Default History Genericprovider aspirin EC (ECOTRIN) 81 MG tablet Take 1 tablet (81 mg total) by mouth daily. Doc [facility] atorvastatin (LIPITOR) 40 MG tablet 1 tablet (40 mg total). 10/29/23 Default History Genericprovider clopidogrel (PLAVIX) 75 MG tablet Take 1 tablet (75 mg total) by mouth daily. 01/29/24 Default History Genericprovider COMBIGAN 0.2-0.5 % ophthalmic solution INSTILL 1 DROP INTO BOTH EYES TWICE A DAY 10/01/19 Doc [facility] empagliflozin (JARDIANCE) 10 MG tablet Take 1 tablet (10 mg total) by mouth daily. 02/06/21 Doc [facility] furosemide (LASIX) 20 MG tablet Take 0.5 tablets (10 mg total) by mouth daily. 02/05/24 Default History Genericprovider Glucose Blood test strip by in vitro route. 02/01/09 Doc [facility] insulin glargine (LANTUS) 100 UNIT/ML injection (PEN) Inject 17 Units into the skin every morning. 05/07/18 Doc [facility] latanoprost 0.005 % ophthalmic solution Apply 1 drop to eye. 06/09/18 Doc [facility] levothyroxine 88 MCG tablet Take 1 tablet (88 mcg total) by mouth daily. 05/23/18 Doc [facility] metoprolol succinate ER (TOPROL-XL) 25 MG 24 hr tablet Take 0.5 tablets (12.5 mg total) by mouth daily. 01/29/24 Default History Genericprovider oxyCODONE immediate release (ROXICODONE) 5 MG immediate release tablet 1 tablet (5 mg total). 01/28/24 Default History Genericprovider semaglutide (OZEMPIC, 1 MG/DOSE,) 2 MG/1.5ML injection (PEN) INJECT 1MG SUBCUTANEOUSLY ONCE A WEEK 02/06/21 Doc [facility] SENOKOT 8.6 MG tablet 1 tablet (8.6 mg total). 02/05/24 Default History Genericprovider vitamin D2, ergocalciferol, 29904 UNITS capsule Take 1 capsule (1.25 mg total) by mouth weekly. 08/07/10 Doc [facility] PAST MEDICAL HISTORY: Past Medical History: Diagnosis Date Cataract Closed tibia fracture Diabetes mellitus ([facility]) Disease of thyroid gland Glaucoma Hypertension PAST SURGICAL HISTORY: Past Surgical History: Procedure Laterality Date APPENDECTOMY CABG, ARTERIAL, THREE 01/20/2024 Performed at [facility] by Dr. Treviño CARPAL TUNNEL RELEASE Bilateral SECTION HC TRIGGER FINGER RELEASE 4 times FAMILY HISTORY: Family History Problem Relation Name Age of Onset Open Heart Mother Heart Attack Mother Diabetes Mother Kidney Disease Mother Diabetes Sister Diabetes Brother SOCIAL HISTORY: Social History Tobacco Use Smoking status: Never Smokeless tobacco: Never Vaping Use Vaping status: Never Used Substance Use Topics Alcohol use: No Drug use: Not Currently Review of Systems As stated in HPI Physical Exam Filed Vitals: 02/19/24 0804 02/19/24 0808 BP: 138/63 Pulse: 82 Resp: 18 Temp: 96.7 ??F (35.9 ??C) TempSrc: Temporal SpO2: 99% Weight: 88 kg (194 lb 0.1 oz) Height: 1.524 m (5') Physical Exam Vitals and nursing note reviewed. Constitutional: General: She is not in acute distress. Appearance: She is well-developed. HENT: Head: Normocephalic. Nose: Nose normal. Pulmonary: Effort: Pulmonary effort is normal. No respiratory distress. Musculoskeletal: Cervical back: Normal range of motion and neck supple. Feet: Skin: General: Skin is warm and dry. Neurological: Mental Status: She is alert and oriented to person, place, and time. Psychiatric: Behavior: Behavior normal. Thought Content: Thought content normal. Judgment: Judgment normal. Diagnostic Studies / Procedures ELECTROCARDIOGRAMS: No results found for this visit on 02/19/24. LABORATORY STUDIES: No results found for this visit on 02/19/24. IMAGING STUDIES XR FOOT RT 3V Final Result by User, [id number] (02/18 911) [address] [address] EXAMINATION: Right foot 3 views EXAM DATE/TIME: 02/19/2024 8:44 AM REASON FOR EXAM: pain COMPARISON: None TECHNIQUE: AP, oblique, and lateral views of the right foot were obtained. FINDINGS: Subtle cortical abnormalities in the proximal phalanges of the second third and fourth toes is noted. Appearance is somewhat nonspecific with subtle cortical prominence in these regions. No definite fracture seen. Mild osteoarthritis first metatarsal-phalangeal joint with hallux valgus deformities noted. Large calcaneal spurs are seen. Spurring the midfoot is noted. Spurring the tibiotalar joint is seen. Joint space narrowing with likely spurring in the second and third and fourth tarsometatarsal joints is noted. Enthesopathy or other etiology of the base of the fifth metatarsals noted. Vascular calcifications are noted. Findings are suspicious for atherosclerotic change.. No definite or obvious cortical destruction is seen. ===== IMPRESSION:===== Subtle abnormalities of the second third and fourth toes. These could be areas of developmental abnormality. Focal periosteal reaction is not excluded. Correlate clinically. Osteoarthritis of the ankle and foot. Large calcaneal spurs at the insertion of Achilles tendon and plantar fascia. Severe atherosclerotic disease noted. Referred By: Interpreted By: Jason Lowery MD, 02/19/2024 9:03 AM ED Course / Medical Decision Making MDM X-ray of foot with osteoarthritic changes. On examination no signs of any wound or concern for infection neurovascular intact distally symptoms consistent with inflammation of osteoarthritis is stable for outpatient follow-up as needed. Medications - No data to display Clinical Impression Osteoarthritis of right foot, unspecified osteoarthritis type (Primary) Discharge Medication List as of 02/19/2024 9:46 AM START taking these medications Details diclofenac sodium (VOLTAREN) 1 % gel Apply 4 g topically 4 (four) times daily., Starting 02/19/2024, Eprescribe Class: Eprescribe Pharmacy: [facility]/pharmacy #[address] [place] [address] [facility] (Ph #: [phone]) methylPREDNISolone, CRISTIANE, (MEDROL DOSEPAK) 4 MG tablet 6 TABLETS ON DAY ONE, 5 TABLETS DAY TWO, 4 TABLETS DAY THREE, 3 TABLETS DAY FOUR, 2 TABLETS DAY FIVE, AND 1 TABLET DAY SIX, Eprescribe Class: Eprescribe Pharmacy: [facility]/pharmacy #[address] [place] [address] [facility] (Ph #: [phone]) Disposition: Discharge Follow-Up: Elpidio Serrato MD [address] [place] [address] Schedule an appointment as soon as possible for a visit in 1 week As needed LYNNE Wick 02/19/2024 LYNNE Wick 02/19/24 1339 Cosigned by Long Dodson DO at 02/19/2024 3:59 PM CDT * Ginny Dela Cruz RN - 02/19/2024 8:05 AM CDT Pt wheelchaired to triage POV with c/o right foot pain that started at 230AM. Pt states unable to bear weight or walk on foot. Pt denies injury. Pt states triple bypass 01/20/2024. documented in this encounter Plan of Treatment Upcoming Encounters Date Type Department Care Team (Late st Contact Info) Description 07/13/2024 1:40 PM ANNEALING FURNACE TENDER Office Visit [facility] Multispecialty Care - [facility] [address] [facility], [address] [place] [address] Kirill Montelongo MD 3 [place] [address] documented as of this encounter Procedures Procedure Name Priority Date/Time Associated Diagnosis Comments XR FOOT RT 3V STAT 02/19/2024 8:58 AM CDT documented in this encounter Results * XR FOOT RT 3V (02/19/2024 8:58 [...] 9:03 AM Narrative 02/19/2024 9:09 AM CDT [address] [address] EXAMINATION: Right foot 3 views EXAM DATE/TIME: [...] Procedure Note Jason Lowery MD - 02/19/2024 [facility] [address] [place], [place] [address] EXAMINATION: Right foot 3 views EXAM DATE/TIME: [...] By: Jason Lowery MD, 02/19/2024 9:03 AM us [facility] Final Resul t documented in this encounter Visit Diagnoses Diagnosis Osteoarthritis of right foot, unspecified osteoarthritis type- Primary documented in this encounter Additional Health Concerns Assessment Noted Time PHQ-9 Depression Total Score: 0 08/14/19 24 7:35 AM CDT documented as of this encounter Care Teams Handle Rounder Operator Relationship Specialty Start Date End Date Elpidio Serrato MD [address] [place] [address] PCP - General INTERNAL MEDICINE 06/19/18 documented as of this encounter
--- OUTSIDE RECORDS SUMMARY | 2024-04-29 13:55 | XMS_ITS | Encounter Summary ---
Author Organization [facility] Address [address] [place] [address]. [place], [place] [address] [place] [address] Care Team Providers Care Retail Leader Name Role Phone Elpidio Serrato MD Primary Care Provider [phone] Encounter Details Date Type Department Care Team (Latest Contact Info) Description 02/19/2024 Travel Social History Tobacco Use Types Packs/Day [...] st Contact Info) Description 07/13/2024 1:40 PM CERTIFIED WELDER Office Visit [facility] Multispecialty Care - [address], [address] [place] [id number] Kirill Montelongo MD [address] [place] [address] documented as of this encounter Visit Diagnoses Not on filedocumented in this encounter Additional Health Concerns Assessment Noted Time PHQ-9 Depression Total Score: 0 08/14/19 24 7:35 AM CDT documented as of this encounter Care Teams Retail Leader Relationship Specialty Start Date End Date Elpidio Serrato MD [address] [place] [address] PCP - General INTERNAL MEDICINE 06/19/18 documented as of this encounter
--- OUTSIDE RECORDS SUMMARY | 2024-04-29 13:55 | XMS_ITS | Encounter Summary ---
Author Organization [facility] Address [address] [place] [address]. [place], [place] [address] [place] [address] Care Team Providers Care Labor And Delivery Nurse Name Role Phone Elpidio Serrato MD Primary Care Provider [phone] Encounter Details Date Type Department Care Team (Latest Contact Info) Description 02/10/2024 Travel Social History Tobacco Use Types Packs/Day [...] st Contact Info) Description 07/13/2024 1:40 PM PYROGLAZER Office Visit [facility] Multispecialty Care - [address], [address] [place] [address] Kirill Montelongo MD 3 [place] [address] documented as of this encounter Visit Diagnoses Not on filedocumented in this encounter Additional Health Concerns Assessment Noted Time PHQ-9 Depression Total Score: 0 08/14/19 24 7:35 AM CDT documented as of this encounter Care Teams Labor And Delivery Nurse Relationship Specialty Start Date End Date Elpidio Serrato MD [address] [place] [address] PCP - General INTERNAL MEDICINE 06/19/18 documented as of this encounter
--- OUTSIDE RECORDS SUMMARY | 2024-04-29 13:56 | XMS_ITS | Encounter Summary ---
Author Organization [facility] Address [address] [place] [address]. [place], [place] [address] [place] [address] Care Team Providers Care Qualitative Field Project Manager Name Role Phone Elpidio Serrato MD Primary Care Provider [phone] Encounter Details Date Type Department Care Team (Latest Contact Info) Description 02/06/2024 Scan MG HEALTH INFO SRVCS Scanned, Doc Med Group Social History Tobacco Use Types Packs/Day Years [...] st Contact Info) Description 07/13/2024 1:40 PM RESIDENT PROGRAMS ASSISTANT Office Visit [facility] Medical Group Multispecialty Care - [address], [address] [place] [address] Kirill Montelongo MD 3 [place] [address] documented as of this encounter Visit Diagnoses Not on filedocumented in this encounter Additional Health Concerns Assessment Noted Time PHQ-9 Depression Total Score: 0 08/14/19 24 7:35 AM CDT documented as of this encounter Care Teams Qualitative Field Project Manager Relationship Specialty Start Date End Date Elpidio Serrato MD [address] [place] [address] PCP - General INTERNAL MEDICINE 06/19/18 documented as of this encounter
--- OUTSIDE RECORDS SUMMARY | 2024-04-29 13:56 | XMS_ITS | Encounter Summary ---
Author Organization [facility] Address [address] [place] [address]. [place], [place] [address] [place] [address] Care Team Providers Care Progressive Care Unit Registered Nurse Name Role Phone Elpidio Serrato MD Primary Care Provider [phone] Encounter Details Date Type Department Care Team (Latest Contact Info) Description 11/15/2023 Scan MG HEALTH INFO SRVCS Scanned, Doc [...] Contact Info) Description 07/13/2024 1:40 PM [place] Office Visit [facility] Medical Group Multispecialty Care - [address], [address] [place] [address] Kirill Montelongo MD 3 [place] [address] documented as of this encounter Visit Diagnoses Not on filedocumented in this encounter Additional Health Concerns Assessment Noted Time PHQ-9 Depression Total Score: 0 08/14/19 24 7:35 AM CDT documented as of this encounter Care Teams Progressive Care Unit Registered Nurse Relationship Specialty Start Date End Date Elpidio Serrato MD [address] [place] [address] PCP - General INTERNAL MEDICINE 06/19/18 documented as of this encounter
--- OUTSIDE RECORDS SUMMARY | 2024-04-29 13:56 | XMS_ITS | Encounter Summary ---
Author Organization [facility] Address [address] [place] [address]. [place], [place] [address] [place] [address] Care Team Providers Care Health Information Management Director Name Role Phone Elpidio Serrato MD Primary Care Provider [phone] Reason for Visit * Reason Comments Particle Board Supervisor Report (SCAN)* Encounter Details Date Type Department Care Team (Late Contact Info) Description 11/25/2023 Scan HEALTH INFO SRVCS Scanned, Doc Med Group Particle Board Supervisor Report (SCAN)* Social History Tobacco Use Types Packs/Day Years [...] Encounters Date Type Department Care Team (Late Contact Info) Description 07/13/2024 1:40 PM FORKLIFT TRUCK OPERATOR Office Visit [facility] Multispecialty Care - [address], [address] [place] [address] Kirill Montelongo MD 3 [place] [address] documented as of this encounter Procedures Procedure Name Priority Date/Time Associated Diagnosis Comments DRY JANITOR 11/25/2023 documented in this encounter Results * DRY JANITOR (11/25/2023) Anatomical Region Laterality Modality Other 11/25/2023 us Doc Med Group Scanned SCANNING Final Resu lt documented in this encounter Visit Diagnoses Not on filedocumented in this encounter Additional Health Concerns Assessment Noted Time PHQ-9 Depression Total Score: 0 08/14/19 24 7:35 AM CDT documented as of this encounter Care Teams Health Information Management Director Relationship Specialty Start Date End Date Elpidio Serrato MD [address] [place] [address] [id number] PCP - General INTERNAL MEDICINE 06/19/18 documented as of this encounter
--- OUTSIDE RECORDS SUMMARY | 2024-04-29 13:56 | XMS_ITS | Encounter Summary ---
Author Organization [facility] Address [address] [place] [address]. [place], [place] [address] [place] [address] Care Team Providers Care Director Of Respiratory Therapy Name Role Phone Elpidio Serrato MD Primary Care Provider [phone] Encounter Details Date Type Department Care Team (Latest Contact Info) Description 01/28/2024 Scan HEALTH INFO SRVCS Scanned, Doc Med [...] st Contact Info) Description 07/13/2024 1:40 PM TOOL DRESSER Office Visit [facility] Medical Group Multispecialty Care - [address], [address] [place] [address] Kirill Montelongo MD 3 [place] [address] documented as of this encounter Visit Diagnoses Not on filedocumented in this encounter Additional Health Concerns Assessment Noted Time PHQ-9 Depression Total Score: 0 08/14/19 24 7:35 AM CDT documented as of this encounter Care Teams Director Of Respiratory Therapy Relationship Specialty Start Date End Date Elpidio Serrato MD [address] [place] [address] PCP - General INTERNAL MEDICINE 06/19/18 documented as of this encounter
--- OUTSIDE RECORDS SUMMARY | 2024-04-29 13:56 | XMS_ITS | Encounter Summary ---
Author Organization [facility] Address [address] [place] [address]. [place], [place] [address] [place] [address] Care Team Providers Care Pill Maker Name Role Phone Elpidio Serrato MD Primary Care Provider [phone] Encounter Details Date Type Department Care Team (Latest Contact Info) Description 11/16/2023 Scan MG HEALTH INFO SRVCS Scanned, Doc [...] st Contact Info) Description 07/13/2024 1:40 PM A OPERATOR Office Visit [facility] Medical Group Multispecialty Care - [address], [address] [place] [address] Kirill Montelongo MD 3 [place] [address] documented as of this encounter Visit Diagnoses Not on filedocumented in this encounter Additional Health Concerns Assessment Noted Time PHQ-9 Depression Total Score: 0 08/14/19 24 7:35 AM CDT documented as of this encounter Care Teams Pill Maker Relationship Specialty Start Date End Date Elpidio Serrato MD [address] [place] [address] PCP - General INTERNAL MEDICINE 06/19/18 documented as of this encounter
--- OUTSIDE RECORDS SUMMARY | 2024-04-29 13:57 | XMS_ITS | Encounter Summary ---
Author Organization [facility] Address [address] [place] [address]. [place], [place] [address] [place] [address] Care Team Providers Care Bean Roaster Name Role Phone Elpidio Serrato MD Primary Care Provider [phone] Encounter Details Date Type Department Care Team (Latest Contact Info) Description 10/12/2019 Travel Social History Tobacco Use Types Packs/Day Years Used Date Smoking Tobacco: Never Smokeless Tobacco: Never Alcohol Use Standard Drinks/Week Comments No 0 (1 standard drink = 0.6 oz pur e alcohol) AUDIT-C Answer Date Recorded Frequency of Alcohol Consumption Never 08/12/2018 Average Number of Drinks Not on file Frequency of Binge Drinking Not on file 06/2018 Comments No Sex and Gender Information Value Date Recorded Sex Assigned at Female 08/12/2018 9:05 AM CDT Legal Sex Female 4:46 PM CDT Gender Identity Female 08/12/2018 9:05 AM CDT Sexual Orientation Straight 08/12/2018 9: 05 AM CDT COVID-19 Exposure Response Date Recorded In the last month, have you been in contact with someone who was confirmed or suspected to have Coronavirus / COVID-19? No / Unsure 10/12/2019 2:34 PM CDT documented as of this encounter Plan of Treatment Upcoming Encounters Date Type Department Care Team (Late st Contact Info) Description 07/13/2024 1:40 PM CORK SLABS SAWYER Office Visit [facility] Medical Group Multispecialty Care - [address], [address] [place] [address] Kirill Montelongo MD [address] [place] [address] documented as of this encounter Visit Diagnoses Not on filedocumented in this encounter Care Teams Bean Roaster Relationship Specialty Start Date End Date Elpidio Serrato MD [address] [place] [address] [phone] PCP - General INTERNAL MEDICINE 06/19/18 documented as of this encounter
--- OUTSIDE RECORDS SUMMARY | 2024-04-29 13:57 | XMS_ITS | Encounter Summary ---
Author Organization [facility] Address [address] [place] [address]. [place], [place] [address] [place] [address] Care Team Providers Care Corporate Development Associate Name Role Phone Elpidio Serrato MD Primary Care Provider [phone] Encounter Details Date Type Department Care Team (Late st Contact Info) Description 02/16/2021 Abstract [facility] [address] [place] [address] Abstract, Doc [facility] Social History Tobacco Use Types Packs/Day Years Used Date Smoking Tobacco: Never Smokeless Tobacco: Never Alcohol Use Standard Drinks/Week Comments No 0 (1 standard drink = 0.6 oz pur e alcohol) AUDIT-C Answer Date Recorded Frequency of Alcohol Consumption Never 08/12/2018 Average Number of Drinks Not on file 019 Frequency of Binge Drinking Not on file 06/2018 PHQ-2 Answer Date Recorded PHQ-2 Score - If the patient scores above 3, please move on to questions 3-9 0 02/15/2021 Comments No Sex and Gender Information Value [...] have Coronavirus / COVID-19? No / Unsure 02/15/2021 8:55 AM CDT documented as of this encounter Plan of Treatment Upcoming Encounters Date Type Department Care Team (Late st Contact Info) Description 07/13/2024 1:40 PM AUDIT PARTNER Office Visit [facility] Multispecialty Care - [facility] [address] [facility], [address] [place] [address] Kirill Montelongo MD 3 [place] [address] documented as of this encounter Procedures Procedure Name Priority Date/Time Associated Diagnosis Comments HEMOGLOBIN, GLYCOSYLATED Routine 01/13/2021 documented in this encounter Results * HEMOGLOBIN, GLYCOSYLATED (01/13/2021) HGB A1C 7.2 % 01/13/2021 us Doc [facility] Abstract LABORATORY Final Result documented in this encounter Visit Diagnoses Not on filedocumented in this encounter Additional Health Concerns Assessment Noted Time PHQ-9 Depression Total Score: 1 02/16/20 21 9:46 AM CDT documented as of this encounter Care Teams Corporate Development Associate Relationship Specialty Start Date End Date Elpidio Serrato MD [address] [place] [address] PCP - General INTERNAL MEDICINE 06/19/18 documented as of this encounter
--- OUTSIDE RECORDS SUMMARY | 2024-04-29 13:57 | XMS_ITS | Encounter Summary ---
Author Organization [facility] Address [address] [place] [address]. [place], [place] [address] [place] [address] Care Team Providers Care Tax Specialist Name Role Phone Elpidio Serrato MD Primary Care Provider [phone] Encounter Details Date Type Department Care Team (Latest Contact Info) Description 07/15/2020 Scan HEALTH INFO SRVCS Scanned, Documents Social History Tobacco Use Types Packs/Day Years [...] st Contact Info) Description 07/13/2024 1:40 PM LICENSING MANAGER Office Visit [facility] Medical [facility] Multispecialty Care - [facility] 3 [facility], [address] [place] [address] Kirill Montelongo MD 3 [place] [address] documented as of this encounter Visit Diagnoses Not on filedocumented in this encounter Care Teams Tax Specialist Relationship Specialty Start Date End Date Elpidio Serrato MD [address] [place] [address] PCP - General INTERNAL MEDICINE 06/19/18 documented as of this encounter
--- OUTSIDE RECORDS SUMMARY | 2024-04-29 13:57 | XMS_ITS | Encounter Summary ---
Author Organization [facility] Address [address] [place] [address]. [place], [place] [address] [place] [address] Care Team Providers Care Supervisor Quilting Name Role Phone Elpidio Serrato MD Primary Care Provider [phone] Encounter Details Date Type Department Care Team (Latest Contact Info) Description 02/08/2020 Scan HEALTH INFO SRVCS Scanned, Documents Social [...] have Coronavirus / COVID-19? No / Unsure 02/16/2020 11:12 AM CDT documented as of this encounter Plan of Treatment Upcoming Encounters Date Type Department Care Team (Late st Contact Info) Description 07/13/2024 1:40 PM MICROELECTRONICS TECHNICIAN Office Visit [facility] Medical Group Multispecialty Care - [address], [address] [place] [address] Kirill Montelongo MD 3 [place] [address] documented as of this encounter Visit Diagnoses Not on filedocumented in this encounter Care Teams Supervisor Quilting Relationship Specialty Start Date End Date Elpidio Serrato MD [address] [place] [address] [phone] PCP - General INTERNAL MEDICINE 06/19/18 documented as of this encounter
--- OUTSIDE RECORDS SUMMARY | 2024-04-29 13:57 | XMS_ITS | Encounter Summary ---
Author Organization [facility] Address [address] [place] [address]. [place], [place] [address] [place] [address] Care Team Providers Care Trauma Coordinator Name Role Phone Elpidio Serrato MD Primary Care Provider [phone] Encounter Details Date Type Department Care Team (Late st Contact Info) Description 02/28/2022 9:00 AM CDT Flu/Imm Clinic [facility] Family & Internal Medicine [place] [place] [address] Elpidio Serrato MD [address] [place] [address] Social History Tobacco Use Types Packs/Day Years [...] please move on to questions 3-9 0 06/12/2021 Comments No Sex and Gender Information Value Date Recorded Sex Assigned at Female 08/12/2018 9:05 AM CDT Legal Sex Female 4:46 PM CDT Gender Identity Female 08/12/2018 9:05 AM CDT Sexual Orientation Straight 08/12/2018 9: 05 AM CDT COVID-19 Exposure Response Date Recorded In the last 10 days, have yo u been in contact with someone who was confirmed or suspected to have Coronavirus/COVID-19? No / Unsure 02/28/2022 8:39 AM CDT documented as of this encounter Plan of Treatment Upcoming Encounters Date Type Department Care Team (Late st Contact Info) Description 07/13/2024 1:40 PM CASK MAKER Office Visit [facility] Medical [facility] Multispecialty Care - [facility] [address] [facility], [address] [place] [address] Kirill Montelongo MD 3 [place] [address] documented as of this encounter Visit Diagnoses Diagnosis Need for prophylactic vaccination against viral disease- Primary Need for prophylactic vaccination and inoculation against other viral diseases documented in this encounter Additional Health Concerns Assessment Noted Time PHQ-9 Depression Total Score: 0 06/12/19 22 9:09 AM CASK MAKER documented as of this encounter Care Teams Trauma Coordinator Relationship Specialty Start Date End Date Elpidio Serrato MD [address] [place] [address] PCP - General INTERNAL MEDICINE 06/19/18 documented as of this encounter
--- OUTSIDE RECORDS SUMMARY | 2024-04-29 13:57 | XMS_ITS | Encounter Summary ---
Author Organization [facility] Address [address] [place] [address]. [place], [place] [address] [place] [address] Care Team Providers Care Membership Solicitor Name Role Phone Elpidio Serrato MD Primary Care Provider [phone] Encounter Details Date Type Department Care Team (Latest Contact Info) Description 10/04/2023 Travel Social History Tobacco Use Types Packs/Day [...] st Contact Info) Description 07/13/2024 1:40 PM COOLING PIPE INSPECTOR Office Visit [facility] Medical Group Multispecialty Care - [address], [address] [place] [address] Kirill Montelongo MD 3 [place] [address] documented as of this encounter Visit Diagnoses Not on filedocumented in this encounter Additional Health Concerns Assessment Noted Time PHQ-9 Depression Total Score: 0 08/14/19 24 7:35 AM CDT documented as of this encounter Care Teams Membership Solicitor Relationship Specialty Start Date End Date Elpidio Serrato MD [address] [place] [address] PCP - General INTERNAL MEDICINE 06/19/18 documented as of this encounter
--- OUTSIDE RECORDS SUMMARY | 2024-04-29 13:57 | XMS_ITS | Encounter Summary ---
Author Organization [facility] Address [address] [place] [address]. [place], [place] [address] [place] [address] Care Team Providers Care Steel Buffer Name Role Phone Elpidio Serrato MD Primary Care Provider [phone] Encounter Details Date Type Department Care Team (Latest Contact Info) Description 02/28/2022 Travel Social History Tobacco Use Types Packs/Day [...] st Contact Info) Description 07/13/2024 1:40 PM VETERINARY ATTENDANT Office Visit [facility] Medical Group Multispecialty Care - [facility] [address] [facility], [address] [place] [address] Kirill Montelongo MD 3 [place] [address] documented as of this encounter Visit Diagnoses Not on filedocumented in this encounter Additional Health Concerns Assessment Noted Time PHQ-9 Depression Total Score: 0 06/12/19 22 9:09 AM VETERINARY ATTENDANT documented as of this encounter Care Teams Steel Buffer Relationship Specialty Start Date End Date Elpidio Serrato MD [address] [place] [phone] PCP - General INTERNAL MEDICINE 06/19/18 documented as of this encounter
--- OUTSIDE RECORDS SUMMARY | 2024-04-29 13:57 | XMS_ITS | Encounter Summary ---
Author Organization [facility] Address [address] [place] [address]. [place], [place] [address] [place] [address] Care Team Providers Care Tier Lift Truck Operator Name Role Phone Elpidio Serrato MD Primary Care Provider [phone] Reason for Visit * Reason Comments Allied Health Visit Flu shot Encounter Details Date Type Department Care Team (Latest Contact Info) Description 02/05/2023 1:30 PM CDT Allied Health/Nurse Visit [facility] Medical Group Family & Internal Medicine [address] [place] [address] Elpidio Serrato MD [address] [place] [address] Allied Health Visit (Flu shot) Social History Tobacco Use Types Packs/Day Years [...] as of this encounter Progress Notes * Breonna Hernandez RN - 02/05/2023 1:30 PM CDT Patient received Flu vaccine per PCP. Consent obtained. Site aseptically cleansed. Injection given with no complications. Per protocol advised patient to wait for 15 minutes before leaving clinic to watch for any adverse reactions. Patient verbalized understanding and had no further questions or concerns. LL-02/05/23 documented in this encounter Plan of Treatment Upcoming Encounters Date Type Department Care Team (Late st Contact Info) Description 07/13/2024 1:40 PM CORNICE MAKER Office Visit [facility] Medical Group Multispecialty Care - [facility] [address] [facility], [address] [place] [address] Kirill Montelongo MD 3 [place] [address] documented as of this encounter Visit Diagnoses Diagnosis Need for immunization against influenza- Primary Need for prophylactic vaccination and inoculation against influenza documented in this encounter Additional Health Concerns Assessment Noted Time PHQ-9 Depression Total Score: 0 06/12/19 9:09 AM CORNICE MAKER documented as of this encounter Care Teams Tier Lift Truck Operator Relationship Specialty Start Date End Date Elpidio Serrato MD [address] [place] [address] PCP - General INTERNAL MEDICINE 06/19/18 documented as of this encounter
--- OUTSIDE RECORDS SUMMARY | 2024-04-29 13:57 | XMS_ITS | Encounter Summary ---
Author Organization [facility] Address [address] [place] [address]. [place], [place] [address] [place] [address] Care Team Providers Care Rn Disease Management Name Role Phone Elpidio Serrato MD Primary Care Provider [phone] Reason for Visit * Reason Comments Lab (SCAN) Encounter Details Date Type Department Care Team (Latest Contact Info) Description 10/29/2023 Scan HEALTH INFO SRVCS Scanned, Doc Med [...] st Contact Info) Description 07/13/2024 1:40 PM STEM FRAZER Office Visit [facility] Medical Group Multispecialty Care - [facility] 3 [facility], [address] [place] [address] Kirill Montelongo MD [address] [place] [address] documented as of this encounter Procedures Procedure Name Priority Date/Time Associated Diagnosis Comments OUTSIDE LAB (SCAN ORDER) 10/29/2023 OUTSIDE LAB (SCAN ORDER) 10/29/2023 OUTSIDE LAB (SCAN ORDER) 10/29/2023 documented in this encounter Results * OUTSIDE LAB (SCAN ORDER) (10/29/2023) 10/29/2023 [employer] [facility] Scanned SCANNING Final Resu lt * OUTSIDE LAB (SCAN ORDER) (10/29/2023) 10/29/2023 [employer] [facility] Scanned SCANNING Final Resu lt * OUTSIDE LAB (SCAN ORDER) (10/29/2023) 10/29/2023 [employer] [facility] Scanned SCANNING Final Resu lt documented in this encounter Visit Diagnoses Not on filedocumented in this encounter Additional Health Concerns Assessment Noted Time PHQ-9 Depression Total Score: 0 08/14/19 24 7:35 AM CDT documented as of this encounter Care Teams Rn Disease Management Relationship Specialty Start Date End Date Elpidio Serrato MD [address] [place] [address] PCP - General INTERNAL MEDICINE 06/19/18 documented as of this encounter
--- OUTSIDE RECORDS SUMMARY | 2024-04-29 13:57 | XMS_ITS | Encounter Summary ---
Author Organization [facility] Address [address] [place] [address]. [place], [place] [id number] [place] [id number] Care Team Providers Care Business Line Controller Name Role Phone Elpidio Serrato MD Primary Care Provider [phone] Reason for Visit * Reason Comments Medicare Wellness Encounter Details Date Type Department Care Team (Late st Contact Info) Description 02/15/2021 9:20 AM CDT Office Visit [facility] Family & Internal Medicine [address] [id number] Medicare Wellness Social History Tobacco Use Types Packs/Day Years [...] have Coronavirus / COVID-19? 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 Health Maintenance Topic Date Due ??? COVID-19 Vaccine (1) Never done ??? Influenza Adult (1) 02/10/2021 ??? Hemoglobin A1C 03/18/2021 (Originally 01/13/2021) ??? Lipid Panel 03/18/2021 (Originally 1949) ??? Nephropathy Screening 03/18/2021 (Originally 1950) ??? DEXA SCAN (GENERAL) 03/18/2021 (Originally 2014) ??? Diabetes: Retinopathy Eye Exam 03/18/2021 (Originally 1967) ??? Mammogram Screening 02/15/2022 (Originally 1999) ??? Colorectal Cancer Screening Colonoscopy (10 Years) 02/15/2022 (Originally 1999) ??? Zoster Vaccines (2 of 3) 02/15/2022 (Originally 06/24/2017) ??? DTaP, Tdap and Td Vaccines (1 - Tdap) 02/15/2022 (Originally 1968) ??? Medicare Wellness Visit 02/16/2022 ??? Pneumococcal ages 65 years and older Completed ??? MENINGOCOCCAL VACCINE Aged Out Recommended Covered Preventative Services Your PCP and clinical team will review the list below of recommended Medicare Part B Covered Preventative Services and follow up with you on future scheduling of any additional services Based on your responses to the Health Risk Assessment and appointment today, your provider recommends the following: ADVANCE DIRECTIVES The Basics Written by the doctors and editors at [facility] What are advance directives???--??Advance directives are legal documents that allow you to spell out ahead of time what of types medical care you would want if you ever became unable to speak for yourself. These documents can help ensure that you get the care you want even if you have an unexpectedserious illness or accident. The documents can also make things easier for the people who will need to make decisions for you if you ever become unable to make them for yourself. Are there different kinds of advance directives???--??Yes. The most useful kinds of advance directives are: ?? Health care proxy (also called the durable power of sports attorney for health care) - The health care proxy document allows you to choose someone to make medical decisions for you if you become unable to speak for yourself. The benefit of having this document is that it makes your choice of a decision-maker clear to your doctors and family members. When you choose a health care proxy, it is important to talk to the person you choose about the things that you do or don't want. That way your decision-maker knows what to do later on if he or she ever has to speak for you. ?? Living will - A living will is the document that tells health care providers what type of care you want if you become unable to speak for yourself. For instance, a living will allows you to recordin writing whether you would want a feeding tube put in if you had a serious illness or accident. ?? Do not resuscitate/do not intubate order (also called a DNR/DNI) - If you decide you do not wantyour heart restarted if it stops and you do not want a breathing tube put in if you stop breathing,you can ask for a DNR/DNI. This is a form that must be signed by a doctor. It tells all your healthcare providers that you have decided you do not want these treatments. Advance directives work best when they are part of a team effort that includes not only the person making the decisions, but also doctors, emergency health workers, and places like hospitals and nursing homes. The Physician Orders for Life Sustaining Treatment (POLST) is a form for people who already have a serious illness or are very weak and likely to need medical help. The POLST form spells out exactly what care should be given, and not given, based on your choices and wishes. It is signed by your doctor, and you can keep a copy at home to be used in the event of an emergency. A copy is also kept onfile at any hospital or other place where you might get medical care. Not every state has a POLST program. To find out if your state has one, you can go online to www.polst.org. How do I choose a health care proxy???--??Choose someone who: ?? You know and trust ?? Can separate his or her own wishes from your own ?? You know would carry out your wishes if that became necessary ?? Could be easily reached if he or she was needed ?? Could handle it if other family members or loved ones wanted you to get treated differently thanyou would want Some people choose a second person as an alternate proxy, in case their first choice cannot be reached at the time decisions need to be made. Who should have an advance directive???--??Advance directives are a good idea for anyone, but they are especially important if: ?? You are older than 65. ?? You have a serious life-threatening illness, such as advanced cancer, or end- stage heart or liver failure. ?? The person whom you would like as your health care proxy (decision-maker) is not a family memberor legally to you. If that is the case the person you would choose might not be allowed to make decisions for you. Unless there is a health care proxy, the law usually states that a person's closest family member has the right to make decisions for him or her. What kinds of decisions will I need to make???--??Your advance directives can have as much or as little detail as you want. But many people who have advance directives record their wishes about the following treatments: ?? Breathing tubes - If you stop breathing or are having a very hard time breathing, you can get attached to a machine that will help you breathe. For that to happen, you will have to be intubated. That means that a tube will be put down your throat and into your lungs. Then the tube will be connected to a breathing machine. When the tube is in place, you will not be able to talk, at least at first. Plus, you will probably be sedated, meaning that you are on medicines that make you sleep. Sometimes a breathing machine is needed only for a short time. For instance, some people need the breathing machine just while they recover from a lung infection. When deciding about a breathing tube, consider whether you would want it at all, want it only for a short time, or want it no matter what. Also, keep in mind that any time a breathing machine is used, it is hard to know for sure if and when it will be able to be disconnected. ?? Cardiopulmonary resuscitation (CPR) - If your heart stops beating suddenly, doctors might be able to restart it by pumping on your chest, putting in a breathing tube and pushing air into your lungs, giving you an electric shock (called defibrillation ), and/or giving you special medicines. Somepeople recover completely after having their heart restarted. Others have permanent brain damage from a lack of blood flow to the brain; this is most likely in people who have an advanced, serious illness. ?? Feeding tubes - If you become unable to eat, you can have a tube put into your stomach or intestines that can deliver nutrients. A feeding tube can keep a person's body going while he or she healsand gets strong. But it can also keep a person alive for a long time even if there is no chance theperson will recover. Can I change my mind???--??Yes. You can change your mind at any time. If you sign an advance directive and you decide you want a different kind of treatment or you no longer want the health care proxy you chose, all you have to do is tell your doctor or nurse about your new decision. If you want toname a new health care proxy or want to record new wishes, you can draw up new documents. How can I draw up an advance directive???--??The following table lists resources that can help you learn more about making your own advance directives (table 1). All topics are updated as new evidence becomes available and our peer review process is complete. This topic retrieved from [employer] on: May 20, 2018. Topic 65674 Version 11.0 table 1: Resources that can help you make advance directives ?? Address Phone number Website [facility] [address] [place], [place] Toll-free: [phone] [facility] [ ] http://assets.aarp.org/external_sites/ caregiving/multimedia/EG_AdvanceDirectives.html Aging with Dignity (Five Wishes form) [address] [place] [address] Toll-free: [phone] [ ] www.agingwithdignity.org [employer] ?? Toll-free: www.caringinfo.org [employer] [address] [place] [address] www.[employer] EXERCISE As an older adult, regular physical activity is one of the most important things you can do for your health. It can prevent many of the health problems that seem to come with age. It also helps your muscles grow stronger so you can keep doing your day-to-day activities without becoming dependent onothers. Not doing any physical activity can be bad for you, no matter your age or health condition. Keep inmind, some physical activity is better than none at all. Your health benefits will also increase with the more physical activity that you do. If you're 65 years of age or older, are generally fit, and have no limiting health conditions you can follow these guidelines. For Important Health Benefits Older Adults Need at Least: 2 hours and 30 minutes ( 150 minutes) of moderate-intensity aerobic activity (i.e., brisk walking) every week and muscle-strengthening activities on 2 or more days a week that work all major muscle groups (legs, hips, back, abdomen, chest, shoulders, and arms). -or- 1 hour and 15 minutes (75 minutes) of vigorous-intensity aerobic activity (i.e., jogging or running) every week and muscle-strengthening activities on 2 or more days a week that work all major musclegroups (legs, hips, back, abdomen, chest, shoulders, and arms). -or- An equivalent mix of moderate- and vigorous-intensity aerobic activity and muscle-strengthening activities on 2 or more days a week that work all major muscle groups (legs, hips, back, abdomen, chest, shoulders, and arms). For Even Greater Health Benefits Older Adults Should Increase Their Activity to: 5 hours (300 minutes) each week of moderate-intensity aerobic activity and muscle-strengthening activities on 2 or more days a week that work all major muscle groups (legs, hips, back, abdomen, chest, shoulders, and arms). -or- 2 hours and 30 minutes (150 minutes) each week of vigorous-intensity aerobic activity and muscle-strengthening activities on 2 or more days a week that work all major muscle groups (legs, hips, back,abdomen, chest, shoulders, and arms). -or- An equivalent mix of moderate- and vigorous-intensity aerobic activity and muscle-strengthening activities on 2 or more days a week that work all major muscle groups (legs, hips, back, abdomen, chest, shoulders, and arms Aerobic activity - what counts? Aerobic activity or cardio gets you breathing harder and your heart beating faster. From pushing a rouge presser, to taking a dance class, to biking to the store - all types of activities count. As long as you're doing them at a moderate or vigorous intensity for at least 10 minutes at a time. Even something as simple as walking is a great way to get the aerobic activity you need, as long as it's at a moderately intense pace. Intensity is how hard your body is working during aerobic activity. How do you know if you're doing moderate or vigorous aerobic activity? On a 10-point scale, where sitting is 0 and working as hard as you can is 10, moderate-intensity aerobic activity is a 5 or 6. It will make you breathe harder and your heart beat faster. You'll also notice that you'll be able to talk, but not sing the words to your favorite song. Vigorous-intensity activity is a 7 or 8 on this scale. Your heart rate will increase quite a bit and you'll be breathing hard enough so that you won't be able to say more than a few words without stopping to catch your breath. You can do moderate- or vigorous-intensity aerobic activity, or a mix of the two each week. Intensity is how hard your body is working during aerobic activity. A rule of thumb is that 1 minute of vigorous-intensity activity is about the same as 2 minutes of moderate-intensity activity. Everyone's fitness level is different. This means that walking may feel like a moderately intense activity to you, but for others, it may feel vigorous. It all depends on you - the shape you're in, what you feel comfortable doing, and your health condition. What's important is that you do physical activities that are right for you and your abilities. Muscle-strengthening activities - what counts? Besides aerobic activity, you need to do things to make your muscles stronger at least 2 days a week. These types of activities will help keep you from losing muscle as you get older. To gain health benefits, muscle-strengthening activities need to be done to the point where it's hard for you to do another repetition without help. A repetition is one complete movement of an activity, like lifting a weight or doing one sit-up. Try to do 8--12 repetitions per activity that count as 1 set. Try to do at least 1 set of muscle-strengthening activities, but to gain even more benefits, do 2 or 3 sets. There are many ways you can strengthen your muscles, whether it's at home or the gym. The activities you choose should work all the major muscle groups of your body (legs, hips, back, chest, abdomen,shoulders, and arms). You may want to try: ???Lifting weights ???Working with resistance bands ???Doing exercises that use your body weight for resistance (push ups, sit ups) ???Heavy gardening (digging, shoveling) ???Yoga Reference: http://www.cdc.gov/physicalactivity/everyone/guidelines/olderadults.html FALL RISK Guidelines to help you prevent falls: There are several steps you can take to decrease fall risk at home. One suggestion is to remove tripping hazards like throw rugs, loose wires, clutter or other objects from the floor. Installing hand-rails for stairs and turning on night lights between the bedroom and bathroom at night are other helpful suggestions. If you have fallen in the bathroom, use of grab bars near the toilet and a shower stool or bench may help prevent a fall in this part of the home. Taking extra time when getting up from a sitting or lying position before starting to walk is especially helpful to those who have dizziness triggered by change in body position. There are also some steps that can be taken to reduce fall risk outdoors. Wearing well-fitting shoes with good traction is important when walking on either the pavement or the lawn. Avoid high heels or shoes with very thick soles, especially if you have peripheral neuropathy. If you have problems with balance or leg pain, using a cane or walker can also be helpful. Finally, be aware of possible tripping hazards outdoors including uneven pavement and slipping hazards like wet ground or pavement. PAIN During your health risk assessment you complained of pain. Pain can be an unpleasant feeling that happens in any part of the body. It can be mild or very bad. You may feel this pain always or it may just come and go. It may be dull, sharp, or throbbing. Pain can last for a long time or a short time. Pain can cause upset stomach and throwing up. When you are in pain you may not feel hungry. You may feel nervous. Pain can be acute or chronic. Acute pain tells you there may be an injury and you need to take careof yourself. Chronic pain lasts for a long period of time. What are the causes? ?? Headache ?? Back problems ?? Arthritis ?? Muscle strain ?? Trauma, such as a blow to the body, fall, motor vehicle accident, or gunshot wound ?? Infection ?? Menstrual pain in women What are the main signs? Pain can be throbbing or shooting. Some people feel pain as dull and others as sharp. It may tingleor burn and shoot down an arm or leg. You may also notice that you are limited when moving a part of your body from pain. Sometimes, pain causes you to have muscle aches or spasms. Other people have headaches or are grouchy when in pain. Some people have loose stools when in pain. Some people have trouble sleeping when in pain. How does the doctor diagnose this health problem? Your doctor will ask you to talk about your pain. Tell the doctor: ?? How your pain feels. Is it dull, sharp, burning, stabbing, or cramping? ?? Where your pain is ?? What causes your pain ?? What makes your pain better or worse Your doctor may ask you to rate your pain. This means you would pick a number or picture that most closely describes your pain. The doctor may ask you to say what number your pain is between 0 and 10. Zero means you have no pain at all and 10 means you have the worst pain ever and you need to [facility]. An exam will help your doctor find out where the pain is and what is causing it. Some simple blood tests may be done. This will help your doctor decide if any other tests are needed. How does the doctor treat this health problem? Mild drugs may be ordered to ease your pain. Sometimes, pain is a sign of some other problem in your body. In this case, drugs may not be ordered at all or only mild ones given. To treat mild to moderate pain: ?? Acetaminophen ?? Nonsteroidal anti-inflammatory drugs (NSAIDs) like aspirin or ibuprofen ?? NSAIDs in a cream form can be used on the skin where you feel the pain ?? Muscle relaxers may be used to loosen tight muscles To treat moderate to very bad pain: ?? Weak opioid drugs like codeine ?? Strong opioid drugs like morphine Ice, heat, rest, and elevating your painful body part may be used to ease pain and help with swelling from muscle pain. When Using Ice ?? Place an ice pack or a bag of frozen peas wrapped in a towel over the painful part. Never put ice right on the skin. Do not leave the ice on more than 10 to 15 minutes at a time. When Using Heat ?? Heat may be used later but not right away. Heat can make swelling worse. If your doctor tells you to use heat, put a heating pad on your painful part for no more than 20 minutes at a time. Never go to sleep with a heating pad on as this can cause adair. Your doctor may suggest other types of pain control to help you. Some of these are massage, acupuncture, career services coordinator, and relaxation. What drugs may be needed? The doctor may order drugs to: ?? Help with pain and swelling ?? Relax tight muscles Take your drugs as ordered by your doctor. Some of these drugs can be habit forming and may cause side effects. What can be done to prevent this health problem? ?? The best thing you can do is talk to your doctor about any pain you have. Your doctor can help you make a plan to lower your pain. ?? Some causes of pain get better by staying active and working out. Your doctor may send you to a physical therapist to help you work on strength exercises and stretching. documented in this encounter Progress Notes * Elpidio Serrato MD - 02/15/2021 9:20 AM CDT Medicare Annual Wellness Visit Chief Complaint: Isabelle is an 71-year-old female here for an annual wellness visit. Patient Care Team: Elpidio Serrato MD as PCP - General (INTERNAL MEDICINE) HEALTH RISK ASSESSMENT A Checklist for Medicare Wellness Annual Visit During the past 4 weeks, how much have you been bothered by emotional problems such as feeling anxious, depressed, irritable, sad or downhearted and blue?: Not at all During the past 4 weeks, has your physical and emotional health limited your social activities withfamily friends, neighbors or groups?: Not at all During the past 4 weeks, how much bodily pain have you generally had?: Moderate pain During the past 4 weeks, was someone able to help you if you needed and wanted help? : Yes, as muchas I wanted During the past 4 weeks, what was the hardest physical activity you could do for atleast 2 minutes?: Light Can you get places out of walking distance without help?: Yes (will use a cane if knee pain is bad) Can you shop for groceries or clothes without help : Yes Can you prepare your own meals?: Yes Can you do your own housework without help?: Yes Can you handle your own money without help?: Yes Do you need help eating, bathing, dressing, or getting around your home?: No During the past 4 weeks, how would you rate your general health?: Very good How have things been going for you during the past 4 weeks?: Pretty good Are you having difficulties driving your car? : No Do you always fasten your seatbeat when you are in a car?: Yes, usually How often during the past 4 weeks have you been bothered by any of the following problems? Fall or dizzy when standing up : Seldom Sexual problems: Never Trouble eating well: Never Teeth or dentures: Never Problems using the telephone: Never Tired or fatigued: Seldom Do you currently smoke?: No During the past 4 weeks, how many drinks of wine, beer or other alcoholic bevearges did you have?: No alcohol at all Do you exercise for about 20 minutes 3 or more days a week?: No, I usually do not exercise this much Have you been given any information to help you with the following: Hazards in your house that might hurt you?: Yes Keeping track of your medications?: Yes How often do you have trouble taking medicines the way you have been told to take them?: I always take them as prescribed How confident are you that you can control and manage most of your health problems?: Very confident FALL RISK Fall Risk One or more falls in the last year:: No Feels unsteady when walking:: Yes (related to knee pain) Worried about falling:: No SLUMS SLUMS Review 02/15/2021 SLUMS #1: Day 1 SLUMS #2: Year 1 SLUMS #3: State 1 SLUMS #4: Memory directive 0 SLUMS #5a: Money spent 1 SLUMS #5b: Money left 2 SLUMS #6: Animals 3 SLUMS #7: Object recall 5 SLUMS #8a: Numbers: 87 0 SLUMS #8b: Numbers: 649 1 SLUMS #8c: Numbers: [id number] 1 SLUMS #9: Clock 4 SLUMS #10a: [place] 1 SLUMS #10b: Size 1 SLUMS #11: Story 0 SLUMS #11a: Female's Name 2 SLUMS #11b: Back to work 2 SLUMS #11c: Work type 2 SLUMS #11d: State 2 Calculated SLUMS Score 30 Scoring. HIGH SCHOOL EDUCATION: 27-30=Normal, 21-26= MNDC*, 1-20=Dementia. LESS THAN HIGH SCHOOL EDUCATION: 25-30=Normal, 20=24=MNCD*, 1-19=Dementia. * Mild Neurocognitive Disorder PHQ2/PHQ9 Over the last two weeks, how often have you been bothered by any of the following problems? 02/15/2021 06/12/2021 LITTLE INTEREST OR PLEASURE IN DOING THINGS 0-Not at All 0-Not at All FEELING DOWN, DEPRESSSED,OR HOPELESS 0-Not at All 0-Not at All PHQ2 DEPRESSION TOTAL SCORE 0 0 TROUBLE FALLING OR STAYING ASLEEP OR SLEEPING TOO MUCH 0-Not at All - FEELING TIRED OR HAVING LITTLE ENERGY 1-Several Days - POOR APPETITE OR OVEREATING 0-Not at All - FEELING BAD ABOUT YOURSELF 0-Not at All - TROUBLE CONCENTRATING ON THINGS 0-Not at All - MOVING OR SPEAKING SO SLOWLY THAT OTHER PEOPLE COULD HAVE NOTICED 0-Not at All - THOUGHTS THAT YOU WOULD BE BETTER OFF 0-Not at All - DEPRESSION SCREENING TOTAL SCORE 1 0 The ASCVD Risk score ([place]prema JEFFRIES Jr., et al., 2013) failed to calculate for the following reasons: Cannot find a previous HDL lab Cannot find a previous total cholesterol lab HISTORY Past Medical History: Diagnosis Date ??? Cataract ??? Closed tibia fracture ??? Diabetes mellitus (CMS/HCC) ??? Disease of thyroid gland ??? Glaucoma ??? Hypertension Past Surgical History: Procedure Laterality Date ??? APPENDECTOMY ??? CARPAL TUNNEL RELEASE Bilateral ??? SECTION ??? HC TRIGGER FINGER RELEASE 4 times Family History Problem Relation Name Age of Onset ??? Diabetes Mother ??? Kidney Disease Mother Social History Socioeconomic History ??? Marital status: Spouse name: Not on file ??? Number of children: Not on file ??? Years of education: Not on file ??? Highest education level: Not on file Social History Tobacco Use ??? Smoking status: Never Smoker ??? Smokeless tobacco: Never Used Substance Use Topics ??? Alcohol use: No Current Outpatient Medications Medication Sig Dispense Refill ??? aspirin EC (ASPIRIN EC) 81 MG tablet Take 81 mg by mouth daily. ??? atorvastatin 20 MG tablet Take 20 mg by mouth nightly at bedtime. ??? celecoxib 200 MG capsule Take 200 mg by mouth daily. ??? COMBIGAN 0.2-0.5 % ophthalmic solution INSTILL 1 DROP INTO BOTH EYES TWICE A DAY ??? insulin glargine (LANTUS SOLOSTAR) 100 UNIT/ML injection (PEN) Inject 48 Units into the skin every morning. ??? insulin lispro (HUMALOG KWIKPEN) 100 UNIT/ML injection (PEN) 15 units in the morning, 10 untis with lunch and dinner. SS with glucoe ??? latanoprost 0.005 % ophthalmic solution Apply 1 drop to eye. ??? levothyroxine 88 MCG tablet Take 88 mcg by mouth daily. 1 ??? metFORMIN 500 MG tablet Take 500 mg by mouth 2 (two) times daily. 3 ??? vitamin D2, ergocalciferol, 66427 UNITS capsule Take 1 capsule by mouth weekly. ??? empagliflozin (JARDIANCE) 10 MG tablet Take 1 tablet by mouth daily. ??? Glucose Blood (FREESTYLE LITE) test strip by in vitro route. ??? Olmesartan Medoxomil-HCTZ 40-12.5 MG Tab Take 1 tablet by mouth daily. ??? semaglutide (OZEMPIC, 1 MG/DOSE,) 2 MG/1.5ML injection (PEN) INJECT 1MG SUBCUTANEOUSLY ONCE A WEEK ??? simvastatin 40 MG tablet Take 40 mg by mouth nightly at bedtime. No current facility-administered medications for this visit. EXAM There were no vitals filed for this visit. Patient denies any problems with hearing. ASSESSMENT AND PLAN The patient's current medical problems were reviewed. The following health maintenance schedule was reviewed with the patient and provided in printed form in the after visit summary: Health Maintenance Topic Date Due ??? Lipid Panel Never done ??? Diabetes: Retinopathy Eye Exam Never done ??? Hepatitis C Never done ??? DEXA SCAN (GENERAL) Never done ??? Hemoglobin A1C 07/13/2021 ??? Mammogram Screening 02/15/2022 (Originally 1999) ??? Colorectal Cancer Screening Colonoscopy (10 Years) 02/15/2022 (Originally 1950) ??? Zoster Vaccines (2 of 3) 02/15/2022 (Originally 06/24/2017) ??? DTaP, Tdap and Td Vaccines (1 - Tdap) 02/15/2022 (Originally 1968) ??? Medicare Wellness Visit 02/16/2022 ??? Pneumococcal Vaccine: 65+ Years Completed ??? COVID-19 Vaccine Completed ??? Meningococcal Vaccine Aged Out The following list of Medicare Part B Covered Preventative Services and Identified Health Risks were discussed with the patient and will be reviewed with the patient???s PCP / care team for further follow up and scheduling. Based on Isabelle's responses to the Health Risk Assessment, we disscussed the following risks. ADVANCE DIRECTIVE The patient was counseled and encouraged to create an Advance Directive. This will be further evaluated and addressed at a follow up visit. EXERCISE She is at risk for lack of exercise and has been provided with information to increase physical activity for the benefit of her well-being. FALL RISK She is at risk for falling and has been provided with information to reduce the risk of falling at home as well as outside the home. PAIN The patient was provided with information and appropriate referrals to address her pain problem. I reviewed all the information above with the patient and made screening recommendations based on my findings. LELA HERNANDEZ, RN I reviewed the pateint's history, vitals from today, answers to the assessment and the services recommended by LELA HERNANDEZ RN. I agree with the findings and recommendations. ELPIDIO SERRATO MD documented in this encounter Plan of Treatment Upcoming Encounters Date Type Department Care Team (Late st Contact Info) Description 07/13/2024 1:40 PM JOB SITE SUPERINTENDENT Office Visit [facility] Multispecialty Care - [facility] [address] [facility], [address] [place] [address] Kirill Montelongo MD 3 [place] [address] documented as of this encounter Visit Diagnoses Diagnosis Need for immunization against influenza Need for prophylactic vaccination and inoculation against influenza Routine general medical examination at a health care facility documented in this encounter Additional Health Concerns Assessment Noted Time PHQ-9 Depression Total Score: 1 02/16/20 21 9:46 AM CDT documented as of this encounter Care Teams Business Line Controller Relationship Specialty Start Date End Date Elpidio Serrato MD [address] [place] [address] PCP - General INTERNAL MEDICINE 06/19/18 documented as of this encounter
--- OUTSIDE RECORDS SUMMARY | 2024-04-29 13:57 | XMS_ITS | Encounter Summary ---
Author Organization [facility] Address [address] [place] [address]. [id number] [place] [address] Care Team Providers Care Pugger Helper Name Role Phone Elpidio Serrato MD Primary Care Provider [phone] Reason for Visit * Reason Onset Date Comments Follow Up Call 02/12/2020 Encounter Details Date Type Department Care Team (Late st Contact Info) Description 02/12/2020 Telephone [facility] Family & Internal Medicine [id number] [place] [address] Elpidio Serrato MD [facility] [place] [address] Follow Up Call Social History Tobacco Use Types Packs/Day Years [...] as of this encounter Progress Notes * Eliane Saravia MA - 02/16/2020 8:40 AM CDT Patient informed she is UTD and will not need any more pneumonia vaccines. tn * Ruth Dewey MA - 02/15/2020 1:23 PM CDT LMTC 02/15/20 * Elpidio Serrato MD - 02/15/2020 7:45 AM CDT She has had both prevnar 13 and pneumovax 23 - no need for any more pneumococcal vaccines. * Mariela Roth - 02/12/2020 11:52 AM CDT Pt calling, asking if she should have a pneumonia vaccine this year documented in this encounter Plan of Treatment Upcoming Encounters Date Type Department Care Team (Late st Contact Info) Description 07/13/2024 1:40 PM TECHNICAL MANAGER CHEMICAL PLANT Office Visit [facility] Multispecialty Care - [facility] [address] [facility], [address] [place] [address] Kirill Montelongo MD 3 [place] [address] documented as of this encounter Visit Diagnoses Not on filedocumented in this encounter Care Teams Pugger Helper Relationship Specialty Start Date End Date Elpidio Serrato MD [address] [place] [id number] PCP - General INTERNAL MEDICINE 06/19/18 documented as of this encounter
--- OUTSIDE RECORDS SUMMARY | 2024-04-29 13:57 | XMS_ITS | Encounter Summary ---
Author Organization [facility] Address [address] [place] [address]. [place], [place] [address] [place] [address] Care Team Providers Care Roustabout Crew Leader Name Role Phone Elpidio Serrato MD Primary Care Provider [phone] Encounter Details Date Type Department Care Team (Latest Contact Info) Description 08/14/2023 Travel Social History Tobacco Use Types Packs/Day [...] st Contact Info) Description 07/13/2024 1:40 PM EXECUTIVE VICE PRESIDENT BUSINESS DEVELOPMENT Office Visit [facility] Medical [facility] Multispecialty Care - [address], [address] [place] [address] Kirill Montelongo MD 3 [place] [address] documented as of this encounter Visit Diagnoses Not on filedocumented in this encounter Additional Health Concerns Assessment Noted Time PHQ-9 Depression Total Score: 0 08/14/19 24 7:35 AM CDT documented as of this encounter Care Teams Roustabout Crew Leader Relationship Specialty Start Date End Date Elpidio Serrato MD [address] [place] [id number] PCP - General INTERNAL MEDICINE 06/19/18 documented as of this encounter
--- OUTSIDE RECORDS SUMMARY | 2024-04-29 13:57 | XMS_ITS | Encounter Summary ---
Author Organization [facility] Address [address] [place] [address]. [place], [place] [id number] [place], [place] [id number] Care Team Providers Care Property Manager Name Role Phone Elpidio Serrato MD Primary Care Provider [phone] Encounter Details Date Type Department Care Team (Latest Contact Info) Description 03/09/2022 Scan HEALTH INFO SRVCS Scanned, Doc Med [...] st Contact Info) Description 07/13/2024 1:40 PM RN TRANSFER Office Visit [facility] Medical Group Multispecialty Care - [facility] [address] [facility], [address] [place] [address] Kirill Montelongo MD 3 [place] [address] documented as of this encounter Visit Diagnoses Not on filedocumented in this encounter Additional Health Concerns Assessment Noted Time PHQ-9 Depression Total Score: 0 06/12/19 22 9:09 AM RN TRANSFER documented as of this encounter Care Teams Property Manager Relationship Specialty Start Date End Date Elpidio Serrato MD [address] [place] [id number] PCP - General INTERNAL MEDICINE 06/19/18 documented as of this encounter
--- OUTSIDE RECORDS SUMMARY | 2024-04-29 13:57 | XMS_ITS | Encounter Summary ---
Author Organization [facility] Address [address] [place] [address]. [place], [place] [phone] [place] [address] Care Team Providers Care Petal Cutter Name Role Phone Elpidio Serrato MD Primary Care Provider [phone] Encounter Details Date Type Department Care Team (Latest Contact Info) Description 02/16/2020 Travel Social History Tobacco Use Types Packs/Day [...] st Contact Info) Description 07/13/2024 1:40 PM GENERAL LABORER Office Visit [facility] Medical Group Multispecialty Care - [address], [address] [place] [address] Kirill Montelongo MD [address] [place] [address] documented as of this encounter Visit Diagnoses Not on filedocumented in this encounter Care Teams Petal Cutter Relationship Specialty Start Date End Date Elpidio Serrato MD [address] [place] [id number] PCP - General INTERNAL MEDICINE 06/19/18 documented as of this encounter
--- OUTSIDE RECORDS SUMMARY | 2024-04-29 13:57 | XMS_ITS | Encounter Summary ---
Author Organization [facility] Address [address] [place] [address]. [place], [place] [phone] [place] [address] Care Team Providers Care Crystal Inspector Name Role Phone Elpidio Serrato MD Primary Care Provider [phone] Encounter Details Date Type Department Care Team (Late st Contact Info) Description 12/27/2020 Abstract [facility] [address] [place] [phone] Abstract, Doc [facility] Social History Tobacco [...] st Contact Info) Description 07/13/2024 1:40 PM WEB DEVELOPER PROGRAMMER Office Visit [facility] Medical Group Multispecialty Care - [address], [address] [place] [address] Kirill Montelongo MD 3 [place] [address] documented as of this encounter Procedures Procedure Name Priority Date/Time Associated Diagnosis Comments HEMOGLOBIN, GLYCOSYLATED Routine 07/13/2020 documented in this encounter Results * HEMOGLOBIN, GLYCOSYLATED (07/13/2020) HGB A1C 6.8 % 07/13/2020 us Doc [facility] Abstract LABORATORY Final Result documented in this encounter Visit Diagnoses Not on filedocumented in this encounter Care Teams Crystal Inspector Relationship Specialty Start Date End Date Elpidio Serrato MD [address] [place] [phone] PCP - General INTERNAL MEDICINE 06/19/18 documented as of this encounter
--- OUTSIDE RECORDS SUMMARY | 2024-04-29 13:57 | XMS_ITS | Encounter Summary ---
Author Organization [facility] Address [address] [place] [address]. [place], [place] [phone] [place] [address] Care Team Providers Care Photography Editor Name Role Phone Elpidio Serrato MD Primary Care Provider [phone] Reason for Visit * Reason Comments Imm/Inj Encounter Details Date Type Department Care Team ([facility] Contact Info) Description 02/16/2020 11:40 AM CDT Allied Health/Nurse Visit [facility] Medical Group Family & Internal Medicine [address] [phone] Imm/Inj Social History Tobacco Use Types Packs/Day Years [...] Upcoming Encounters Date Type Department Care Team ([facility] Contact Info) Description 07/13/2024 1:40 PM FUR BLOWER OPERATOR Office Visit [facility] Medical [facility] Multispecialty Care - [facility] [address] [facility], [address] [place] [address] Kirill Montelongo MD 3 [place] [address] documented as of this encounter Visit Diagnoses Diagnosis Need for immunization against influenza- Primary Need for prophylactic vaccination and inoculation against influenza documented in this encounter Care Teams Photography Editor Relationship Specialty Start Date End Date Elpidio Serrato MD [address] [place] [phone] PCP - General INTERNAL MEDICINE 06/19/18 documented as of this encounter
--- OUTSIDE RECORDS SUMMARY | 2024-04-29 13:57 | XMS_ITS | Encounter Summary ---
Author Organization [facility] Address [address] [place] [address]. [place], [place] [address] [place] [address] Care Team Providers Care Petrographer Name Role Phone Elpidio Serrato MD Primary Care Provider [phone] Reason for Referral * Consultation (Routine) - Authorized Specialty Diagnoses / Procedures Referred By Contac t Referred To Contact CARDIOLOGY / Cardiology Diagnoses Dyspnea on exertion Procedures OFFICE/OUTPATIENT NEW LOW MDM 30-44 MINUTES OFFICE/OUTPT VISIT,NEW,LEVL IV OFFICE/OUTPT VISIT,NEW,LEVL V OFFICE/OUTPT VISIT,EST,LEVL III OFFICE/OUTPT VISIT,EST,LEVL IV OFFICE/OUTPT VISIT,EST,LEVL V Elpidio Serrato MD [address] [place] [address] Phone: tel: fax: Leigh Ann Kerns MD [facility] [address] [place] [address] Phone: tel: fax: Referral ID Status Reason Start Date Expiration Date Visits Requested Visits Authorized [id number] Authorized Specialty Services 08/14/2023 09/12/2024 100 100 * Imaging (Routine) - Pending Review Specialty Diagnoses / Procedures Referred By Contac t Referred To Contact RADIOLOGY Diagnoses Encounter for screening mammogram for malignant neoplasm of breast Procedures MG SCREENING W CARISSA Elpidio Payne MD [address] [place] [address] Phone: tel: fax: Referral ID Status Reason Start Date Expiration Date V isits Requested Visits Authorized [id number] Pending Review 08/14/2023 10/13/2024 1 1 Reason for Visit * Reason Comments Diabetes Last A1c 5.8 () Hypertension Hyperlipidemia Encounter Details Date Type Department Care Team (Latest Contact Info) Description 08/14/2023 7:20 AM CDT Office Visit [facility] Family & Internal Medicine - [address] [phone] Elpidio Serrato MD [address] [place] [address] Diabetes (Last A1c 5.8 (04/29/23)); Hypertension; Hyperlipidemia Social History Tobacco Use Types Packs/Day Years [...] Sign Reading Time Taken Comments Blood Pressure 116/64 08/14/2023 7:37 AM CDT Pulse 85 08/14/2023 7:37 AM CDT Temperature 36.3 ??C (97.3 ??F) 08/14/2023 7:37 AM CD T Respiratory Rate 16 08/14/2023 7:37 AM CDT Oxygen Saturation 97% 08/14/2023 7:37 AM CDT Inhaled Oxygen Concentration - - Weight 95.6 kg (210 lb 12.8 oz) 08/14/2023 7:37 AM CDT Height 152.4 cm (5') 08/14/2023 7:37 AM CDT Body Mass Index 41.17 08/14/2023 7:37 AM CDT documented in this encounter Progress Notes * Elpidio Serrato MD - 08/14/2023 7:20 AM CDT Images from the original note were not included. Office Progress Note Reason for Visit: Diabetes (Last A1c 5.8 (04/29/23)), Hypertension, and Hyperlipidemia History of Present Illness: She is here today for routine follow-up. Diabetes mellitus, type II: She is compliant with medication without medication side effects. She does follow with endocrinology [facility] at [facility]. Her hemoglobin A1c is 5.6% on her last lab testing. She has had some hypoglycemic episodes that she was treating with soda but now has discovered that using lunchables will help with her sugar and sustain it through the night. Hypertension: Doing well on current treatment. She is compliant with medication medication side effects. She denies chest pains but has had dyspnea on exertion recently. Hyperlipidemia: Doing well with current medication. Compliant with medication without medication side effects. Denies muscle aches or joint pains from medications She states that she has been having dyspnea on exertion when she walks up a flight of stairs or when she walks to her mailbox she has to stop to rest due to shortness of breath. Chronic kidney disease: Stable at this time. No signs or symptoms of chronic kidney disease. Osteoporosis: Her emergency communications officer is ordering Reclast but has not yet started on infusions. She is trying to walk for exercise. ROS: Review of Systems All other systems reviewed and are negative. Medications: Current Outpatient Medications on File Prior to Visit Medication Sig aspirin EC (ECOTRIN) 81 MG tablet Take 1 tablet (81 mg total) by mouth daily. atorvastatin 20 MG tablet Take 1 tablet (20 mg total) by mouth nightly at bedtime. celecoxib (CELEBREX) 200 MG capsule take 1 capsule by mouth twice a day COMBIGAN 0.2-0.5 % ophthalmic solution INSTILL 1 DROP INTO BOTH EYES TWICE A DAY empagliflozin (JARDIANCE) 10 MG tablet Take 1 tablet (10 mg total) by mouth daily. Glucose Blood test strip by in vitro route. insulin glargine (LANTUS) 100 UNIT/ML injection (PEN) Inject 52 Units into the skin every morning. insulin lispro (HUMALOG) 100 UNIT/ML injection (PEN) 10 units in the morning, 10 untis with lunch and dinner. SS with glucoe latanoprost 0.005 % ophthalmic solution Apply 1 drop to eye. levothyroxine 88 MCG tablet Take 1 tablet (88 mcg total) by mouth daily. metFORMIN 500 MG tablet Take 1 tablet (500 mg total) by mouth daily with breakfast. olmesartan (BENICAR) 40 MG tablet Take 1 tablet (40 mg total) by mouth daily. semaglutide (OZEMPIC, 1 MG/DOSE,) 2 MG/1.5ML injection (PEN) INJECT 1MG SUBCUTANEOUSLY ONCE A WEEK simvastatin 40 MG tablet Take 1 tablet (40 mg total) by mouth nightly at bedtime. vitamin D2, ergocalciferol, [address]505 UNITS capsule Take 1 capsule (1.25 mg total) by mouth weekly. No current facility-administered medications on file prior to visit. Allergies: Allergies Allergen Reactions Pseudoephedrine Tachycardia Valacyclovir Other (see comment) put me in renal failure Medical History: Past Medical History: Diagnosis Date Cataract Closed tibia fracture Diabetes mellitus ([facility]) Disease of thyroid gland Glaucoma Hypertension Surgical History: Past Surgical History: Procedure Laterality Date APPENDECTOMY CARPAL TUNNEL RELEASE Bilateral SECTION HC TRIGGER FINGER RELEASE 4 times Social History: Social History Socioeconomic History Marital status: Tobacco Use Smoking status: Never Smokeless tobacco: Never Vaping Use Vaping Use: Never used Substance and Sexual Activity Alcohol use: No Drug use: Not Currently Types: Marijuana Comment: Patient tried edible marijuana for pain, but is not currently using Sexual activity: Never Family History: Family History Problem Relation Name Age of Onset Diabetes Mother Kidney Disease Mother PE: Physical Exam Vitals and nursing note [...] Breath sounds: Normal breath sounds. No wheezing. Skin: General: Skin is warm and dry. Neurological: Mental Status: She is alert and oriented to person, place, and time. Psychiatric: Behavior: Behavior normal. Judgment: Judgment normal. Filed Vitals: 08/14/23 0737 BP: 116/64 Pulse: 85 Resp: 16 Temp: 97.3 ??F (36.3 ??C) TempSrc: Skin SpO2: 97% Weight: 95.6 kg (210 lb 12.8 oz) Height: 1.524 m (5') Diagnoses/Impression: 1. 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 Benign essential hypertension Chronic 3. Mixed hyperlipidemia 4. Dyspnea on exertion Ambulatory referral to Cardiology, Adult ([facility]) 5. Acquired hypothyroidism 6. Age-related osteoporosis without current pathological fracture 7. Chronic kidney disease (CKD) stage G3b/A1, moderately decreased glomerular filtration rate (GFR)between 30-44 mL/min/1.73 square meter and albuminuria creatinine ratio less than 30* ([facility]) 8. Encounter for screening mammogram for malignant neoplasm of breast MG SCREENING W CARISSA ROBERT DIGI 9. Morbid (severe) obesity due to excess calories ([facility]) 10. Body mass index (BMI) 40.0-44.9, adult ([facility]) Recommendations and Plan: 1. 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 2. Benign essential hypertension Well controlled, continue with present management. 3. Mixed hyperlipidemia Well controlled, continue with present management. 4. Dyspnea on exertion Refer to cardiology for further workup. - Ambulatory referral to Cardiology, Adult ([facility]) 5. Acquired hypothyroidism Doing well, continue with same levothyroxine dosage. 6. Age-related osteoporosis without current pathological fracture Management as per endocrinology. 7. Chronic kidney disease (CKD) stage G3b/A1, moderately decreased glomerular filtration rate (GFR)between 30-44 mL/min/1.73 square meter and albuminuria creatinine ratio less than 30* ([facility]) Stable, continue to monitor. 8. Encounter for screening mammogram for malignant neoplasm of breast - MG SCREENING W CARISSA ROBERT DIGI; Future 9. Morbid (severe) obesity due to excess calories ([facility]) Encouraged diet and exercise Rx. 10. Body mass index (BMI) 40.0-44.9, adult ([facility]) Follow up in 6 months. Orders Placed This Encounter Ambulatory referral to Cardiology, Adult ([facility]) MG SCREENING W CARISSA ROBERT DIGI olmesartan (BENICAR) 40 MG tablet PCP: ELPIDIO SERRATO MD 08/14/2023 documented in this encounter Plan of Treatment Upcoming Encounters Date Type Department Care Team (Late st Contact Info) Description 07/13/2024 1:40 PM WOOD SKI MAKER Office Visit [facility] Multispecialty Care - [facility] [address] [facility], [address] [place] [address] Kirill Montelongo MD [address] [place] [address] Scheduled Orders Name Type Priority Associated Diagnoses Orde r Schedule MG SCREENING W CARISSA ROBERT DIGI MAMMO Routine Encounter for screening mammogram for malignant neoplasm of breast Expected: 08/14/2023, Expires: 10/13/2024 Scheduled Referrals Name Type Priority Associated Diagnoses Orde r Schedule Ambulatory referral to Cardiology, Adult ([facility]) Referral Routine Dyspnea on exertion Ordered: 08/14/2023 documented as of this encounter Visit Diagnoses Diagnosis 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, without long-term current use of insulin, macular edema presence unspecified ([facility])- Primary Benign essential hypertension Essential hypertension, benign Mixed hyperlipidemia Dyspnea on exertion Other dyspnea and respiratory abnormality Acquired hypothyroidism Unspecified hypothyroidism Age-related osteoporosis without current pathological fracture Senile osteoporosis Chronic kidney disease (CKD) stage G3b/A1, moderately decreased glomerular filtration rate (GFR) between 30-44 mL/min/1.73 square meter and albuminuria creatinine ratio less than 30* ([facility]) Encounter for screening mammogram for malignant neoplasm of breast Other screening mammogram Morbid (severe) obesity due to excess calories ([facility]) Body mass index (BMI) 40.0-44.9, adult ([facility]) documented in this encounter Additional Health Concerns Assessment Noted Time PHQ-9 Depression Total Score: 0 08/14/19 24 7:35 AM CDT documented as of this encounter Care Teams Petrographer Relationship Specialty Start Date End Date Elpidio Serrato MD [address] [place] [address] PCP - General INTERNAL MEDICINE 06/19/18 documented as of this encounter
--- OUTSIDE RECORDS SUMMARY | 2024-04-29 13:57 | XMS_ITS | Encounter Summary ---
Author Organization [facility] Address [address] [place] [address]. [place], [place] [address] [place] [address] Care Team Providers Care Annual Greenhouse Manager Name Role Phone Elpidio Serrato MD Primary Care Provider [phone] Encounter Details Date Type Department Care Team (Latest Contact Info) Description 10/30/2023 Scan MG HEALTH INFO SRVCS Scanned, Doc [...] st Contact Info) Description 07/13/2024 1:40 PM PIECE GOODS CLERK Office Visit [facility] Medical Group Multispecialty Care - [address], [address] [place] [address] Kirill Montelongo MD [address] [place] [address] documented as of this encounter Visit Diagnoses Not on filedocumented in this encounter Additional Health Concerns Assessment Noted Time PHQ-9 Depression Total Score: 0 08/14/19 24 7:35 AM CDT documented as of this encounter Care Teams Annual Greenhouse Manager Relationship Specialty Start Date End Date Elpidio Serrato MD [address] [place] [address] PCP - General INTERNAL MEDICINE 06/19/18 documented as of this encounter
--- OUTSIDE RECORDS SUMMARY | 2024-04-29 13:57 | XMS_ITS | Encounter Summary ---
Author Organization [facility] Address [address] [place] [address]. [place], [place] [address] [place] [address] Care Team Providers Care Linen Room Houseperson Name Role Phone Elpidio Serrato MD Primary Care Provider [phone] Reason for Visit * Reason Onset Date Comments COVID-19 04/14/2020 Encounter Details Date Type Department Care Team (Late st Contact Info) Description 04/14/2020 Telephone [facility] Medical [facility] Family & Internal Medicine [place] [address] [place] [address] Elpidio Serrato MD [facility] [place] [address] COVID-19 Social History Tobacco Use Types Packs/Day Years [...] as of this encounter Progress Notes * Michelle Thomas MA - 04/14/2020 3:02 PM CST Patient declined covid test, she will call back if she is not better. For new or worsening symptomspatient will go to ER , patient v/u D ACTIVATION MANAGER * Elpidio Serrato MD - 04/14/2020 2:46 PM CST It sounds like she has gastroenteritis and not COVID if she is not having any respiratory symptoms.If she still would like a COVID test we can arrange for one to be done through [facility]. D ACTIVATION MANAGER * Ruth Dewey MA - 04/14/2020 10:35 AM CST Patient reports she is extremely weak. Patient had a bout of diarrhea on Saturday. Patient's family is worried she might have COVID and wanted her to get tested. Patient doesn't believes she has COVID, but promised them she would call you to get your advice. Cough-Negative Fever-Unknown SOB-No more than usual Body aches-Yes Chill-Yes Diarrhea-Yes, resolved Headache-No Sore throat-no Rash-No Loss of smell/taste- Negative Red eyes-unkown Weakness-Yes Fatigue-Yes Sinus symptoms-negative Have you been exposed to anyone with COVID or sick? NO Comorbidities: Obesity, HTN, DM, CB# [phone] Allergies: Pseudoephedrine and Valacyclovir Pharmacy: [facility] D ACTIVATION MANAGER * Doris Alvarez - 04/14/2020 9:32 AM CST Patient needing triaged, sinus issues, not regaining strength D ACTIVATION MANAGER documented in this encounter Plan of Treatment Upcoming Encounters Date Type Department Care Team (Late st Contact Info) Description 07/13/2024 1:40 PM BRAND ACTIVATION MANAGER Office Visit [facility] Medical [facility] Multispecialty Care - [facility] [address] [facility], [address] [place] [phone] Kirill Montelongo MD [address] [place] [address] documented as of this encounter Visit Diagnoses Not on filedocumented in this encounter Care Teams Linen Room Houseperson Relationship Specialty Start Date End Date Elpidio Serrato MD [address] [place] [address] PCP - General INTERNAL MEDICINE 06/19/18 documented as of this encounter
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
--- OUTSIDE RECORDS SUMMARY | 2024-04-29 13:57 | XMS_ITS | Encounter Summary ---
Author Organization [facility] Address [address] [place] [address]. [place], [place] [address] [place] [address] Care Team Providers Care Haul Cane Brakeman Name Role Phone Elpidio Serrato MD Primary Care Provider [phone] Encounter Details Date Type Department Care Team (Latest Contact Info) Description 01/24/2021 Scan HEALTH INFO SRVCS Scanned, Documents Social [...] st Contact Info) Description 07/13/2024 1:40 PM CONTROL SYSTEMS SPECIALIST Office Visit [facility] Multispecialty Care - [address], [address] [place] [address] Kirill Montelongo MD 3 [place] [address] documented as of this encounter Visit Diagnoses Not on filedocumented in this encounter Care Teams Haul Cane Brakeman Relationship Specialty Start Date End Date Elpidio Serrato MD [address] [place] [address] PCP - General INTERNAL MEDICINE 06/19/18 documented as of this encounter
--- OUTSIDE RECORDS SUMMARY | 2024-04-29 13:57 | XMS_ITS | Encounter Summary ---
Author Organization [facility] Address [address] [place] [address]. [place], [place] [address] [place] [address] Care Team Providers Care Billing Associate Name Role Phone Elpidio Serrato MD Primary Care Provider [phone] Reason for Referral * Imaging (Routine) - New Request Specialty Diagnoses / Procedures Referred By Constantino alvarado Referred To Contact RADIOLOGY Diagnoses ROSE (dyspnea on exertion) Procedures USE ECHOCARDIOGRAM W CON Leigh Ann Kerns MD [facility] [address] [place] [address] Phone: tel: fax: Referral ID Status Reason Start Date Expiration Date V isits Requested Visits Authorized [id number] New Request 10/04/2023 10/03/2024 1 1 Reason for Visit * Reason Comments Breathing Problem Consult * Consultation (Routine) - Authorized Specialty Diagnoses / Procedures Referred By Contqi t Referred To Contact CARDIOLOGY / Cardiology Diagnoses Dyspnea on exertion Procedures OFFICE/OUTPATIENT NEW LOW MDM 30-44 MINUTES OFFICE/OUTPT VISIT,NEW,LEVL IV OFFICE/OUTPT VISIT,NEW,LEVL V OFFICE/OUTPT VISIT,EST,LEVL III OFFICE/OUTPT VISIT,EST,LEVL IV OFFICE/OUTPT VISIT,EST,LEVL V Elpidio Serrato MD [address] [place] [address] Phone: tel: fax: Leigh Ann Kerns MD [facility] [address] [place] [address] Phone: tel: fax: Referral ID Status Reason Start Date Expiration Date Visits Requested Visits Authorized [id number] Authorized Specialty Services 08/14/2023 09/12/2024 100 100 Encounter Details Date Type Department Care Team (Latest Contact Info) Description 10/04/2023 1:30 PM CDT Office Visit [facility] [address] Leigh Ann Kerns MD [facility] [address] [place] [address] Breathing Problem (Consult ) Social History Tobacco Use Types Packs/Day [...] Sign Reading Time Taken Comments Blood Pressure 116/66 10/04/2023 1:19 PM CDT Pulse 87 10/04/2023 1:19 PM CDT Temperature - - Respiratory Rate - - Oxygen Saturation 98% 10/04/2023 1:19 PM CDT Inhaled Oxygen Concentration - - Weight 93.9 kg (207 lb) 10/04/2023 1:19 PM CDT Height 152.4 cm (5') 10/04/2023 1:19 PM CDT Body Mass Index 40.43 10/04/2023 1:19 PM CDT documented in this encounter Progress Notes * Leigh Ann Kerns MD - 10/04/2023 1:30 PM CDT Images from the original note were not included. [place], [place] [address] Cardiology Consult PCP: ELPIDIO SERRATO MD Cardiac Problem List HLD HTN DM Home Medications: asa 81 mg QD, atorvastatin 20 mg QD, Jardiance 10 mg QD, olmesartan 40 mg QD Consult Reason: ROSE History Ms. Isabelle Lutz is a 73-year-old female. Patient presents for ROSE. She states that she has been having dyspnea on exertion when she walks up a flight of stairs or when she walks to her mailbox she has to stop to rest due to shortness of breath. States that this has been going on for about a month. Her weights been stable. Patient denies any chest pain, pnd, orthopnea, lower extremity edema, fatigue,decreased appetite, palpitations, light headedness, dizziness, syncope. Past Medical History: Diagnosis Date Cataract Closed tibia fracture Diabetes mellitus ([facility]) Disease of thyroid gland Glaucoma Hypertension Past Surgical History: Procedure Laterality Date APPENDECTOMY CARPAL TUNNEL RELEASE Bilateral SECTION HC TRIGGER FINGER RELEASE 4 times Social History Tobacco Use Smoking status: Never Smokeless tobacco: Never Vaping Use Vaping status: Never Used Substance Use Topics Alcohol use: No Drug use: Not Currently Types: Marijuana Comment: Patient tried edible marijuana for pain, but is not currently using Family History Problem Relation Name Age of Onset Diabetes Mother Kidney Disease Mother Prior to Admission medications Medication Sig Start Date End Date Taking? Authorizing Provider aspirin EC (ECOTRIN) 81 MG tablet Take 1 tablet (81 mg total) by mouth daily. Doc [facility] atorvastatin 20 MG tablet Take 1 tablet (20 mg total) by mouth nightly at bedtime. [facility] celecoxib (CELEBREX) 200 MG capsule take 1 capsule by mouth twice a day 08/19/23 Elpidio Serrato MD COMBIGAN 0.2-0.5 % ophthalmic solution INSTILL 1 DROP INTO BOTH EYES TWICE A DAY 10/01/19 Doc [facility] empagliflozin (JARDIANCE) 10 MG tablet Take 1 tablet (10 mg total) by mouth daily. 02/06/21 [facility] Glucose Blood test strip by in vitro route. 02/01/09 [facility] insulin glargine (LANTUS) 100 UNIT/ML injection (PEN) Inject 52 Units into the skin every morning. 05/07/18 [facility] insulin lispro (HUMALOG) 100 UNIT/ML injection (PEN) 10 units in the morning, 10 untis with lunch and dinner. SS with glucoe 05/20/18 [facility] latanoprost 0.005 % ophthalmic solution Apply 1 drop to eye. 06/09/18 [facility] levothyroxine 88 MCG tablet Take 1 tablet (88 mcg total) by mouth daily. 05/23/18 [facility] metFORMIN 500 MG tablet Take 1 tablet (500 mg total) by mouth daily with breakfast. 05/09/18 [facility] olmesartan (BENICAR) 40 MG tablet Take 1 tablet (40 mg total) by mouth daily. Default History Genericprovider semaglutide (OZEMPIC, 1 MG/DOSE,) 2 MG/1.5ML injection (PEN) INJECT 1MG SUBCUTANEOUSLY ONCE A WEEK 02/06/21 [facility] vitamin D2, ergocalciferol, 47011 UNITS capsule Take 1 capsule (1.25 mg total) by mouth weekly. 08/07/10 Doc [facility] Review of patient's allergies indicates: Allergen Reactions Pseudoephedrine Tachycardia Valacyclovir Other (see comment) put me in renal failure Review of Systems: A 14 point ROS was completed and was negative except as per HPI. Physical Exam Filed Vitals: 10/04/23 1319 Weight: 93.9 kg (207 lb) Height: 1.524 m (5') Body mass index is 40.43 kg/m??. Physical Exam: General: NAD, Appears Normal Stated Age HEENT: PEERL, EOMI, MMM NECK: No JVD CVS: RRR, no MRG Resp: CTAB, no wheezes, rales, rhonchi ABD: Soft, NT, ND, +BS Ext: No CCE Diagnostic Data No results found for: WBC , HGB , HCT , PLT , NA , CL , K , GLU , BUN , CR , BICARB , CA , MAGNESIUM , AST , ALT , DBILI , IDBIL , PROTEIN , ALB Lab Results Component Value Date HGBA1C 5.4 06/25/2022 EKG: patient declined an EKG. Transthoracic Echocardiogram Stress Test Holter Left Heart Catherization Assessment/Plan SOB HLD HTN Patient is presenting with shortness of breath. She does have risk factors for ischemic heart disease including hypertension hyperlipidemia. EKG today was declined. Recommend a regadenason nuclear stress test and echocardiogram. In regards to her hyperlipidemia she will continue asa 81 mg QD, atorvastatin 20 mg QD. Her most recent Lipid panel was 06/2022. TG 108, LDL 104. She is due for a repeat lipid panel, which she will have with her federal appellate clerk. In regards to her high blood pressure, her blood pressure today is well controlled. Will continue olmesartan 40 mg QD Follow-Up: After testing Thank you for allowing me to participate in the care of this patient. Please reach out with any questions. Leigh Ann Kerns MD A total of 45 minutes was spent reviewing the patient's medical record, obtaining history, performing an exam, ordering medications, tests, and/or procedures, documenting in the medical record, referring and/or communicating with other health care providers, counseling and educating the patient/fami ly/caregiver, reviewing and communicating test results and coordination of care. Portions of this note were dictated using [employer] speech recognition software. Occasional wrong wordor sound-alike substitutions may have occurred due to the inherent limitations of voice recognition software. Please read the chart carefully and recognize, using context, where the substitutions may have occurred. documented in this encounter Plan of Treatment Upcoming Encounters Date Type Department Care Team (Late st Contact Info) Description 07/13/2024 1:40 PM TECHNICIAN TELECOMMUNICATION SYSTEMS Office Visit [facility] Multispecialty Care - [facility] [address] [facility], [address] [place] [address] Kirill Montelongo MD 3 [place] [address] Scheduled Orders Name Type Priority Associated Diagnoses Orde r Schedule USE ECHOCARDIOGRAM W CON ECHO Routine ROSE (dyspnea on exertion) Expected: 10/04/2023 (Approximate), Expires: 10/03/2024 documented as of this encounter Visit Diagnoses Diagnosis ROSE (dyspnea on exertion)- Primary Other dyspnea and respiratory abnormality Essential (primary) hypertension Unspecified essential hypertension Dyslipidemia Other and unspecified hyperlipidemia documented in this encounter Additional Health Concerns Assessment Noted Time PHQ-9 Depression Total Score: 0 08/14/19 24 7:35 AM CDT documented as of this encounter Care Teams Billing Associate Relationship Specialty Start Date End Date Elpidio Serrato MD [address] [place] [address] PCP - General INTERNAL MEDICINE 06/19/18 documented as of this encounter
--- OUTSIDE RECORDS SUMMARY | 2024-04-29 13:57 | XMS_ITS | Encounter Summary ---
Author Organization [facility] Address [address] [place] [address]. [place], [place] [address] [place] [address] Care Team Providers Care Certified Physician Assistant Name Role Phone Elpidio Serrato MD Primary Care Provider Encounter Details Date Type Department Care Team (Late st Contact Info) Description 02/28/2022 8:40 AM CDT Flu/Imm Clinic [facility] Family & Internal Medicine [place] [id number] [place] [address] Elpidio Serrato MD [address] [place] [address] Social History Tobacco Use Types Packs/Day [...] st Contact Info) Description 07/13/2024 1:40 PM FORM MAKER PLASTER Office Visit [facility] Multispecialty Care - [facility] [address] [facility], [address] [place] [address] Kirill Montelongo MD 3 [place] [address] documented as of this encounter Visit Diagnoses Diagnosis Need for prophylactic vaccination against viral disease- Primary Need for prophylactic vaccination and inoculation against other viral diseases Need for prophylactic vaccination and inoculation against influenza documented in this encounter Additional Health Concerns Assessment Noted Time PHQ-9 Depression Total Score: 0 06/12/19 22 9:09 AM FORM MAKER PLASTER documented as of this encounter Care Teams Certified Physician Assistant Relationship Specialty Start Date End Date Elpidio Serrato MD [address] [place] [address] PCP - General INTERNAL MEDICINE 06/19/18 documented as of this encounter
--- OUTSIDE RECORDS SUMMARY | 2024-04-29 13:57 | XMS_ITS | Encounter Summary ---
Author Organization [facility] Address [address] [place] [address]. [place], [place] [id number] [place] [address] Care Team Providers Care Critical Care Specialist Name Role Phone Elpidio Jimenez MD Primary Care Provider [phone] Reason for Visit * Reason Comments Derm Problem wound under pannus. Patient has been using JAZMYN on it and keep it dry and clean. x 2 weeks Encounter Details Date Type Department Care Team (Late st Contact Info) Description 10/12/2019 3:00 PM CDT Office Visit [facility] Medical Group Family & Internal Medicine [address] [address] Elpidio Jimenez MD [address] [place] [address] [id number] Derm Problem (wound under pannus. Patient has been using JAZMYN on it and keep it dry and clean. x 2 weeks) Social History Tobacco Use Types Packs/Day Years [...] PM CDT documented as of this encounter Last Filed Vital Signs Vital Sign Reading Time Taken Comments Blood Pressure 117/58 10/12/2019 3:03 PM CDT Pulse 88 10/12/2019 3:03 PM CDT Temperature - - Respiratory Rate 16 10/12/2019 3:03 PM CDT Oxygen Saturation 98% 10/12/2019 3:03 PM CDT Inhaled Oxygen Concentration - - Weight 109.7 kg (241 lb 14.4 oz) 10/12/2019 3:03 PM CDT Height 152.4 cm (5') 10/12/2019 3:03 PM CDT Body Mass Index 47.24 10/12/2019 3:03 PM CDT documented in this encounter Progress Notes * Elpidio Jimenez MD - 10/12/2019 3:00 PM CDT Images from the original note were not included. Office Progress Note Reason for Visit: Derm Problem (wound under pannus. Patient has been using JAZMYN on it and keep it dry and clean. x 2 weeks) History of Present Illness: She is here today complaining about a wound under her pannus on the left side. She states that she first noticed this about 2 weeks ago and it was somewhat sore but not draining anything. She startedputting dressings on this thinking it was a pressure area but it opened up and started draining purulent material. She has been using triple antibiotic and moisturizing cream on this twice daily and keeping the area covered. She is wondering if this is from a spider bite or if there is something else causing this. She denies fever or chills. She denies pain in the area. ROS: Review of Systems Constitutional: Negative for malaise/fatigue and weight loss. HENT: Negative for congestion, ear pain, hearing loss and tinnitus. Eyes: Negative for blurred vision. Respiratory: Negative for cough, shortness of breath and wheezing. Cardiovascular: Negative for chest pain, palpitations, claudication, leg swelling and PND. Gastrointestinal: Negative for abdominal pain, heartburn and vomiting. Genitourinary: Negative for dysuria and frequency. Musculoskeletal: Negative for back pain, joint pain and myalgias. Skin: Negative for itching and rash. Neurological: Negative for weakness and headaches. Psychiatric/Behavioral: Negative for depression. The patient does not have insomnia. Medications: Current Outpatient Medications on File Prior to Visit Medication Sig ??? aspirin EC (ASPIRIN EC) 81 MG tablet Take 81 mg by mouth daily. ??? celecoxib 200 MG capsule Take 200 [...] Take 88 mcg by mouth daily. ??? liraglutide (VICTOZA) 18 MG/3ML injection INJECT 1.8MG SUBCUTANEOUSLYDAILY ??? metFORMIN 500 MG tablet Take 500 mg by mouth 2 (two) times daily. ??? Olmesartan Medoxomil-HCTZ 40-12.5 MG Tab Take 1 tablet by mouth daily. ??? simvastatin 40 MG tablet Take 40 mg by mouth nightly at bedtime. ??? vitamin D2, ergocalciferol, 94187 UNITS capsule Take 1 capsule by mouth weekly. ??? Glucose Blood (FREESTYLE LITE) test strip by in vitro route. No current facility-administered medications on file prior to visit. Allergies: Allergies Allergen Reactions ??? Pseudoephedrine Tachycardia ??? Valacyclovir Other (see comment) put me in renal failure Medical History: Past Medical History: Diagnosis Date ??? Closed tibia fracture Surgical History: Past Surgical History: Procedure Laterality Date ??? CARPAL TUNNEL RELEASE Bilateral ??? SECTION ??? HC TRIGGER FINGER RELEASE 4 times Social History: Social History Socioeconomic History ??? Marital status: Spouse name: Not on file ??? Number of children: Not on file ??? Years of education: Not on file ??? Highest education level: Not on file Occupational History ??? Not on file Social Needs ??? Financial resource strain: Not on file ??? Food insecurity: Worry: Not on file Inability: Not on file ??? Transportation needs: Medical: Not on file Non-medical: Not on file Tobacco Use ??? Smoking status: Never Smoker ??? Smokeless tobacco: Never Used Substance and Sexual Activity ??? Alcohol use: No Frequency: Never ??? Drug use: No ??? Sexual activity: Never Lifestyle ??? Physical activity: Days per week: Not on file Minutes per session: Not on file ??? Stress: Not on file Relationships ??? Social connections: Talks on phone: Not on file Gets together: Not on file Attends denominational service: Not on file Active member of club or organization: Not on file Attends meetings of clubs or organizations: Not on file Relationship status: Not on file ??? Intimate partner violence: Fear of current or ex partner: Not on file Emotionally abused: Not on file Physically abused: Not on file Forced sexual activity: Not on file Other Topics Concern ??? Not on file Social History Narrative ??? Not on file Family History: Family History Problem Relation Name Age of Onset ??? Diabetes Mother ??? Kidney Disease Mother PE: Physical Exam Constitutional: She is oriented to person, place, and time. She appears well- developed and well-nourished. Cardiovascular: Normal rate, regular rhythm and normal heart sounds. Pulmonary/Chest: Effort normal and breath sounds normal. Neurological: She is alert and oriented to person, place, and time. Skin: There is a 1.5 cm open area on the underside of her left abdominal pannus. There is a small amount of purulent drainage. There is surrounding erythema. Is nontender to palpation. No fluctuance is noted. No necrotic tissue is noted. Psychiatric: She has a normal mood and affect. Judgment normal. Filed Vitals: 10/12/19 1503 BP: 117/58 Pulse: 88 Resp: 16 SpO2: 98% Weight: 109.7 kg (241 lb 14.4 oz) Height: 5' (1.524 m) Diagnoses/Impression: 1. Abscess of skin of abdomen sulfamethoxazole-trimethoprim 800-160 MG tablet Recommendations and Plan: 1. Abscess of skin of abdomen Antibiotics as prescribed Warm compresses at least bid Call if not improving or if worsening. - sulfamethoxazole-trimethoprim 800-160 MG tablet; Take 1 tablet by mouth 2 (two) times daily for 10 days. Dispense: 20 tablet; Refill: 0 Orders Placed This Encounter ??? aspirin EC (ASPIRIN EC) 81 MG tablet ??? COMBIGAN 0.2-0.5 % ophthalmic solution ??? Olmesartan Medoxomil-HCTZ 40-12.5 MG Tab ??? sulfamethoxazole-trimethoprim 800-160 MG tablet Cannot display discharge medications since this is not an admission. 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 Office Visit [facility] Medical [facility] Multispecialty Care - [facility] [address] [facility], [address] [place] [address] Kirill Montelongo MD [address] [place] [address] documented as of this encounter Visit Diagnoses Diagnosis Abscess of skin of abdomen- Primary Cellulitis and abscess of trunk documented in this encounter Care Teams Critical Care Specialist Relationship Specialty Start Date End Date Elpidio Jimenez MD [address] [place] [address] PCP - General INTERNAL MEDICINE 06/19/18 documented as of this encounter
--- OUTSIDE RECORDS SUMMARY | 2024-04-29 13:57 | XMS_ITS | Encounter Summary ---
Author Organization [facility] Address [address] [place] [address]. [place], [place] [address] [place] [address] Care Team Providers Care Lifestyle Director Name Role Phone Elpidio Serrato MD Primary Care Provider [phone] Reason for Visit * Reason Onset Date Comments Radiology Results 11/28/2021 Encounter Details Date Type Department Care Team (Late st Contact Info) Description 11/28/2021 Telephone [facility] Medical Group Family & Internal Medicine [id number] [place] [address] Elpidio Serrato MD [address] [place] [address] Radiology Results Social History Tobacco Use Types Packs/Day Years [...] suspected to have Coronavirus/COVID-19? No / Unsure 11/27/2021 7:49 AM CDT documented as of this encounter Progress Notes * Ruth Dewey MA - 11/28/2021 12:12 PM CDT Patient informed and v/u. She will give us an update after she finishes the prednisone. * Ruth Dewey MA - 11/28/2021 12:10 PM CDT ----- Message from Elpidio Serrato MD sent at 11/28/2021 8:17 AM CDT ----- She definitely has severe arthritis of her knee, if treatment given yesterday is not improving her pain she would definitely benefit from referral to sports medicine for injections. documented in this encounter Plan of Treatment Upcoming Encounters Date Type Department Care Team (Late st Contact Info) Description 07/13/2024 1:40 PM MINUTE CLERK Office Visit [facility] Medical Group Multispecialty Care - [facility] [address] [facility], [address] [place] [address] Kirill Montelongo MD [address] [place] [address] documented as of this encounter Visit Diagnoses Not on filedocumented in this encounter Additional Health Concerns Assessment Noted Time PHQ-9 Depression Total Score: 0 06/12/19 22 9:09 AM MINUTE CLERK documented as of this encounter Care Teams Lifestyle Director Relationship Specialty Start Date End Date Elpidio Serrato MD [address] [place] [address] PCP - General INTERNAL MEDICINE 06/19/18 documented as of this encounter
--- OUTSIDE RECORDS SUMMARY | 2024-04-29 13:57 | XMS_ITS | Encounter Summary ---
Author Organization [facility] Address [address] [place] [address]. [place], [place] [address] [place] [address] Care Team Providers Care Hadoop Application Developer Name Role Phone Elpidio Serrato MD Primary Care Provider [phone] Reason for Visit * Reason Comments Lab [...] st Contact Info) Description 07/13/2024 1:40 PM STAFF WEAPONS OFFICER Office Visit [facility] Medical Group Multispecialty Care - [facility] [address] [facility], [address] [place] [address] Kirill Montelongo MD [address] [place] [address] documented as of this encounter Procedures Procedure Name Priority Date/Time Associated Diagnosis Comments OUTSIDE LAB (SCAN ORDER) Routine 10/29/2023 documented in this encounter Results * OUTSIDE LAB (10/29/2023) HGB A1C 5.9 % [facility] ONBASE 10/29/2023 us Doc Med Group Scanned SCANNING Final Resu lt [facility] ONBASE documented in this encounter Visit Diagnoses Not on filedocumented in this encounter Additional Health Concerns Assessment Noted Time PHQ-9 Depression Total Score: 0 08/14/19 24 7:35 AM CDT documented as of this encounter Care Teams Hadoop Application Developer Relationship Specialty Start Date End Date Elpidio Serrato MD [address] [place] [address] PCP - General INTERNAL MEDICINE 06/19/18 documented as of this encounter
--- OUTSIDE RECORDS SUMMARY | 2024-04-29 13:57 | XMS_ITS | Encounter Summary ---
Author Organization [facility] Address [facility] [facility]. [place], [place] [address] [place] [address] Care Team Providers Care News Gathering Technician Name Role Phone Elpidio Serrato MD Primary Care Provider [phone] Reason for Visit * Reason Comments Joint Pain Knee and hand swelli ng, shoulder pain. Patient states her knees were so swollen she was unable to walk. Encounter Details Date Type Department Care Team (Late st Contact Info) Description 11/27/2021 8:00 AM CDT Office Visit [facility] Medical Group Family & Internal Medicine [address] [address] Elpidio Serrato MD [address] [place] [address] [phone] Joint Pain (Knee and hand swelling, shoulder pain. Patient states her knees were so swollen she was unable to walk. ) Social History Tobacco Use Types Packs/Day [...] Recorded In the last 10 days, have vonnie harris been in contact with someone who was confirmed or suspected to have Coronavirus/COVID-19? No / Unsure 11/27/2021 7:49 AM CDT documented as of this encounter Last Filed Vital Signs Vital Sign Reading Time Taken Comments Blood Pressure 89/44 11/27/2021 8:13 AM CDT Pulse 84 11/27/2021 8:13 AM CDT Temperature 36.3 ??C (97.4 ??F) 11/27/2021 8:13 AM CD T Respiratory Rate 16 11/27/2021 8:13 AM CDT Oxygen Saturation 99% 11/27/2021 8:13 AM CDT Inhaled Oxygen Concentration - - Weight 83.5 kg (184 lb) 11/27/2021 8:13 AM CDT Height 152.4 cm (5') 11/27/2021 8:13 AM CDT Body Mass Index 35.94 11/27/2021 8:13 AM CDT documented in this encounter Progress Notes * Elpidio Serrato MD - 11/27/2021 8:00 AM CDT Images from the original note were not included. Office Progress Note Reason for Visit: Joint Pain (Knee and hand swelling, shoulder pain. Patient states her knees were so swollen she wasunable to walk. ) History of Present Illness: She is here today for follow-up. She states that a few weeks ago, at the end of October, she woke up and she had severe swelling in herknees, hands and shoulders. She does not recall any specific injury to any of these or changes of any medications or supplements. She does not recall if there were changes in weather at the time thatshe had these. She is taking Celebrex once a day and at times she will add ibuprofen 800 mg twice daily and this does seem to help with her pain. She also uses Tylenol arthritis at night to help withher pain. During this time she did take a marijuana chew from her son which helped her to sleep at night, but she does not want to do this on a long-term basis. Hypertension: Doing well on current medications. She is compliant medication medication side effects. She denies chest pain, shortness of breath, headaches, lightheadedness or dizziness. Diabetes mellitus, type II: Very well controlled with an A1c of 5.9%. She does follow with endocrinology. She denies hypoglycemic episodes. Hypothyroidism: Doing well on current treatment. She is compliant medication no medication side effects. She denies signs or symptoms of hypothyroidism. ROS: Review of Systems Constitutional: Negative for [...] Positive for joint pain. Negative for back pain, falls and myalgias. Skin: Negative for itching and rash. Neurological: Negative for weakness and headaches. Psychiatric/Behavioral: Negative for depression. The patient does not have insomnia. Medications: Current Outpatient Medications on File Prior to Visit Medication Sig ??? aspirin EC (ECOTRIN) 81 MG tablet Take 81 mg by mouth daily. ??? atorvastatin 20 MG tablet Take 20 mg by mouth nightly at bedtime. ??? COMBIGAN 0.2-0.5 % ophthalmic solution INSTILL 1 DROP INTO BOTH EYES TWICE A DAY ??? empagliflozin (JARDIANCE) 10 MG tablet Take 1 tablet by mouth daily. ??? Glucose Blood test strip by in vitro route. ??? insulin glargine (LANTUS) 100 UNIT/ML injection (PEN) Inject 48 Units into the skin every morning. ??? insulin lispro (HUMALOG) 100 UNIT/ML injection (PEN) 15 units in [...] nightly at bedtime. ??? vitamin D2, ergocalciferol, 96842 UNITS capsule Take 1 capsule by mouth [...] Social History Socioeconomic History ??? Marital status: Tobacco Use ??? Smoking status: Never Smoker ??? Smokeless tobacco: Never Used Vaping Use ??? Vaping Use: Never used Substance and Sexual Activity ??? Alcohol use: No ??? Drug use: Not Currently Types: Marijuana Comment: Patient tried edible marijuana for pain, but is not currently using ??? Sexual activity: Never Family History: Family History Problem Relation Name Age of Onset ??? Diabetes Mother ??? Kidney Disease Mother PE: Physical Exam Constitutional: Appearance: She is well-developed. HENT: Head: Normocephalic and atraumatic. Eyes: Conjunctiva/sclera: Conjunctivae normal. Pupils: Pupils are equal, round, and reactive to light. Neck: Vascular: Normal carotid pulses. No carotid bruit. Cardiovascular: Rate and Rhythm: Normal rate and regular rhythm. Heart sounds: Normal heart sounds. No murmur heard. No friction rub. No gallop. Pulmonary: Effort: Pulmonary effort is normal. No respiratory distress. Breath sounds: Normal breath sounds. No wheezing. Musculoskeletal: Right knee: No swelling or effusion. Normal range of motion. No tenderness. Normal alignment. Left knee: No swelling or effusion. Normal range of motion. No tenderness. Normal alignment. Skin: General: Skin is warm and dry. Neurological: Mental Status: She is alert and oriented to person, place, and time. Psychiatric: Behavior: Behavior normal. Judgment: Judgment normal. Filed Vitals: 11/27/21 0813 BP: 89/44 Pulse: 84 Resp: 16 Temp: 97.4 ??F (36.3 ??C) TempSrc: Skin SpO2: 99% Weight: 83.5 kg (184 lb) Height: 5' (1.524 m) Diagnoses/Impression: 1. Primary osteoarthritis of both knees predniSONE (DELTASONE) 20 MG tablet celecoxib (CELEBREX) 200 MG capsule XR KNEE LT 3V 2. Benign essential hypertension Chronic 3. 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 Primary osteoarthritis involving multiple joints Recommendations and Plan: 1. Primary osteoarthritis of both knees Patient informed to stop taking ibuprofen if she is taking Celebrex. Increase celebrex to 200mg bid Prednisone 20mg daily x 5 days - patient was informed that her blood glucose will likely elevate and she is on sliding scale if her sugars go too high. If not improving we will consider a referral to Sports Med - Dr. angela - predniSONE (DELTASONE) 20 MG tablet; Take 1 tablet (20 mg total) by mouth daily for 5 days. Dispense: 5 tablet; Refill: 0 - celecoxib (CELEBREX) 200 MG capsule; Take 1 capsule (200 mg total) by mouth 2 (two) times daily. Dispense: 60 capsule; Refill: 3 - XR KNEE LT 3V; Future 2. Benign essential hypertension Well controlled, continue with present management. 3. 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 Primary osteoarthritis involving multiple joints Prednisone as prescribed. Orders Placed This Encounter ??? XR KNEE LT 3V ??? HEMOGLOBIN, GLYCOSYLATED ??? predniSONE (DELTASONE) 20 MG tablet ??? celecoxib (CELEBREX) 200 MG capsule PCP: ELPIDIO SERRATO MD 11/27/2021 * Elpidio Serrato MD - 11/27/2021 8:00 AM CDT Labs reviewed with patient at the time of office visit. documented in this encounter Plan of Treatment Upcoming Encounters Date Type Department Care Team (Late st Contact Info) Description 07/13/2024 1:40 PM RECOIL SPRING WINDER Office Visit [facility] Medical Group Multispecialty Care - [facility] [address] [facility], [address] [place] [address] Kirill Montelongo MD 3 [place] [address] documented as of this encounter Procedures Procedure Name Priority Date/Time Associated Diagnosis Comments HEMOGLOBIN, GLYCOSYLATED Routine 10/23/2021 documented in this encounter Results * XR KNEE LT 3V (11/27/2021 8:51 AM CDT) Anatomical Region Laterality Modality Knee Radiographic Luba ging 11/27/2021 10:5 7 AM CDT Impressions 11/27/2021 2:05 PM CDT IMPRESSION: 1) Moderate to severe tricompartmental degenerative changes as detailed above. 2. There is a 3 cm calcified, corticated mass along the posterior distal femur consistent with a large osteophyte or an osteochondroma. 3. No acute fractures or dislocation. Ordered By: ELPIDIO SERRATO Interpreted By: Enma Bravo MD, 11/27/2021 10:57 AM Narrative 11/27/2021 2:05 PM CDT Examination: XR KNEE LT 3V Exam time: 11/27/2021 8:43 AM Clinical history: Chronic left knee pain, no known injury. Comparison: None available. Technique: AP, lateral, and sunrise views of left knee. Findings: There are moderate to severe tricompartmental degenerative changes worst in the medial and patellofemoral compartment as evidenced by extensive joint space narrowing with relative sparing of the lateral compartment, diffuse osteophytosis, and subchondral sclerosis. There is a 3 cm calcified, well corticated irregular mass which is continuous with the posterior distal femur. There are extensive vascular calcifications. There is a trace knee joint effusion. Procedure Note Patrick Gould MD - 11/27/2021 Examination: XR KNEE LT 3V Exam time: 11/27/2021 8:43 AM Clinical history: Chronic left knee pain, no known injury. Comparison: None available. Technique: AP, lateral, and sunrise views of left knee. Findings: There are moderate to severe tricompartmental degenerativechanges worst in the medial and patellofemoral compartment as evidenced byextensive joint space narrowing with relative sparing of the lateralcompartment, diffuse osteophytosis, and subchondral sclerosis. There is a3 cm calcified, well corticated irregular mass which is continuous withthe posterior distal femur. There are extensive vascular calcifications.There is a trace knee joint effusion. IMPRESSION: 1) Moderate to severe tricompartmental degenerative changes as detailedabove. 2. There is a 3 cm calcified, corticated mass along the posterior distalfemur consistent with a large osteophyte or an osteochondroma. 3. No acute fractures or dislocation. 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
--- OUTSIDE RECORDS SUMMARY | 2024-04-29 13:57 | XMS_ITS | Encounter Summary ---
Author Organization [facility] Address [address] [place] [address]. [place], [place] [address] [place] [address] Care Team Providers Care Rn Obgyn Name Role Phone Elpidio Serrato MD Primary Care Provider [phone] Encounter Details Date Type Department Care Team (Latest Contact Info) Description 02/05/2023 Travel Social History Tobacco Use Types Packs/Day [...] st Contact Info) Description 07/13/2024 1:40 PM ICE HOCKEY COACH Office Visit [facility] Medical Group Multispecialty Care - [address], [address] [place] [address] Kirill Montelongo MD 3 [place] [address] documented as of this encounter Visit Diagnoses Not on filedocumented in this encounter Additional Health Concerns Assessment Noted Time PHQ-9 Depression Total Score: 0 06/12/19 22 9:09 AM ICE HOCKEY COACH documented as of this encounter Care Teams Rn Obgyn Relationship Specialty Start Date End Date Elpidio Serrato MD [address] [place] [address] PCP - General INTERNAL MEDICINE 06/19/18 documented as of this encounter
--- OUTSIDE RECORDS SUMMARY | 2024-04-29 13:57 | XMS_ITS | Encounter Summary ---
Author Organization [facility] Address [address] [place] [address]. [place], [place] [id number] [place] [address] Care Team Providers Care Tugboat Dispatcher Name Role Phone Elpidio Serrato MD Primary Care Provider [phone] Encounter Details Date Type Department Care Team (Latest Contact Info) Description 02/15/2021 Travel Social History Tobacco Use Types Packs/Day [...] st Contact Info) Description 07/13/2024 1:40 PM NURSING ADMIN Office Visit [facility] Multispecialty Care [facility] 3 [facility], [address] [place] [address] Kirill Montelongo MD 3 [place] [address] documented as of this encounter Visit Diagnoses Not on filedocumented in this encounter Additional Health Concerns Assessment Noted Time PHQ-9 Depression Total Score: 1 02/16/20 21 9:46 AM CDT documented as of this encounter Care Teams Tugboat Dispatcher Relationship Specialty Start Date End Date Elpidio Serrato MD [address] [place] [address] [phone] PCP - General INTERNAL MEDICINE 06/19/18 documented as of this encounter
--- OUTSIDE RECORDS SUMMARY | 2024-04-29 13:57 | XMS_ITS | Encounter Summary ---
Author Organization [facility] Address [address] [place] [address]. [place], [place] [address] [place] [address] Care Team Providers Care Casino Runner Name Role Phone Elpidio Serrato MD Primary Care Provider Encounter Details Date Type Department Care Team (Latest Contact Info) Description 06/12/2021 Travel Social History Tobacco Use Types Packs/Day [...] COVID-19? No / Unsure 06/12/2021 8:48 AM PRINTING ESTIMATOR documented as of this encounter Plan of Treatment Upcoming Encounters Date Type Department Care Team (Late st Contact Info) Description 07/13/2024 1:40 PM PRINTING ESTIMATOR Office Visit [facility] Multispecialty Care [facility] 3 [facility], [address] [place] [address] Kirill Montelongo MD 3 [place] [address] documented as of this encounter Visit Diagnoses Not on filedocumented in this encounter Additional Health Concerns Assessment Noted Time PHQ-9 Depression Total Score: 0 06/12/19 22 9:09 AM PRINTING ESTIMATOR documented as of this encounter Care Teams Casino Runner Relationship Specialty Start Date End Date Elpidio Serrato MD [address] [place] [address] [phone] PCP - General INTERNAL MEDICINE 06/19/18 documented as of this encounter
--- OUTSIDE RECORDS SUMMARY | 2024-04-29 13:57 | XMS_ITS | Encounter Summary ---
Author Organization [facility] Address [address] [place] [address]. [place], [place] [address] [place] [address] Care Team Providers Care Talent Rep Name Role Phone Elpidio Serrato MD Primary Care Provider [phone] Encounter Details Date Type Department Care Team (Late st Contact Info) Description 10/19/2019 Abstract Business Office [address] [place] [address] Abstract, Doc [facility] Social History Tobacco Use [...] st Contact Info) Description 07/13/2024 1:40 PM WINTER SPORTS MANAGER Office Visit [facility] Multispecialty Care - [address], [address] [place] [address] Kirill Montelongo MD 3 [place] [address] documented as of this encounter Procedures Procedure Name Priority Date/Time Associated Diagnosis Comments HEMOGLOBIN, GLYCOSYLATED Routine 04/01/2019 documented in this encounter Results * HEMOGLOBIN, GLYCOSYLATED (04/01/2019) HGB A1C 7.7 % 04/01/2019 us Doc [facility] Abstract LABORATORY Final Result documented in this encounter Visit Diagnoses Not on filedocumented in this encounter Care Teams Talent Rep Relationship Specialty Start Date End Date Elpidio Serrato MD [address] [place] [address] PCP - General INTERNAL MEDICINE 06/19/18 documented as of this encounter
--- OUTSIDE RECORDS SUMMARY | 2024-04-29 13:57 | XMS_ITS | Encounter Summary ---
Author Organization [facility] Address [address] [place] [address]. [place], [place] [address] [place] [address] Care Team Providers Care Auto Crane Driver Name Role Phone Elpidio Serrato MD Primary Care Provider [phone] Encounter Details Date Type Department Care Team (Latest Contact Info) Description 11/27/2021 Travel Social History Tobacco Use Types Packs/Day [...] st Contact Info) Description 07/13/2024 1:40 PM INSURANCE OPERATIONS REP Office Visit [facility] Medical Group Multispecialty Care - [facility] 3 [facility], [address] [place] [address] Kirill Montelongo MD 3 [place] [address] documented as of this encounter Visit Diagnoses Not on filedocumented in this encounter Additional Health Concerns Assessment Noted Time PHQ-9 Depression Total Score: 0 06/12/19 22 9:09 AM INSURANCE OPERATIONS REP documented as of this encounter Care Teams Auto Crane Driver Relationship Specialty Start Date End Date Elpidio Serrato MD [address] [place] [address] [phone] PCP - General INTERNAL MEDICINE 06/19/18 documented as of this encounter
--- OUTSIDE RECORDS SUMMARY | 2024-04-29 13:58 | XMS_ITS | Encounter Summary ---
Author Organization [facility] Address [address] [place] [address]. [place], [place] [address] [place] [address] Care Team Providers Care Dry Kiln Operator Helper Name Role Phone Elpidio Serrato MD Primary Care Provider [phone] Reason for Visit * Reason Comments Form (SCAN) [facility] Encounter Details Date Type Department Care Team (Late Contact Info) Description 06/19/2018 Scan HEALTH INFO SRVCS Scanned, Documents Form (SCAN) ([facility]) Social History Tobacco Use Types Packs/Day Years Used Date Smoking Tobacco: Never Assessed Comments Unknown Sex and Gender Information Value Date Recorded Sex Assigned at Female 08/12/2018 9:05 AM CDT Legal Sex Female 4:46 PM CDT Gender Identity Female 08/12/2018 9:05 AM CDT Sexual Orientation Straight 08/12/2018 9: 05 AM CDT documented as of this encounter Plan of Treatment Upcoming Encounters Date Type Department Care Team (Late Contact Info) Description 07/13/2024 1:40 PM CHILD WELFARE ASSISTANT Office Visit [facility] Medical Group Multispecialty Care - [facility] 3 [facility], [address] [place] [address] Kirill Montelongo MD 3 [place] [address] documented as of this encounter Visit Diagnoses Not on filedocumented in this encounter Care Teams Dry Kiln Operator Helper Relationship Specialty Start Date End Date Elpidio Serrato MD [address] [place] [address] PCP - General INTERNAL MEDICINE 06/19/18 documented as of this encounter
--- OUTSIDE RECORDS SUMMARY | 2024-04-29 13:58 | XMS_ITS | Encounter Summary ---
Author Organization [facility] Address [address] [place] [address]. [place], [place] [address] [place] [address] Care Team Providers Care Meter Record Clerk Name Role Phone Elpidio Serrato MD Primary Care Provider Reason for Visit * Reason Comments Sore Throat Started Saturday Cough occasionally product lisa, Started Saturday Headache Started Saturday Fever 101 degree F, Last n ight Encounter Details Date Type Department Care Team (Late st Contact Info) Description 01/07/2019 9:40 AM CDT Office Visit [facility] Medical [facility] Family & Internal Medicine [address] [address] Elpidio Serrato MD [address] [place] [address] Sore Throat (Started Saturday); Cough (occasionally productive, Started Saturday); Headache (Started Saturday); Fever (101 degree F, Last night) Social History Tobacco Use Types Packs/Day Years [...] Sign Reading Time Taken Comments Blood Pressure 106/44 01/07/2019 10:31 AM CDT Pulse 103 01/07/2019 10:31 AM CDT Temperature - - Respiratory Rate 18 01/07/2019 10:31 AM CDT Oxygen Saturation 98% 01/07/2019 10:31 AM CDT Inhaled Oxygen Concentration - - Weight 102 kg (224 lb 14.4 oz) 01/07/2019 10:31 AM CDT Height 152.4 cm (5') 01/07/2019 10:31 AM CDT Body Mass Index 43.92 01/07/2019 10:31 AM CDT documented in this encounter Progress Notes * Elpidio Serrato MD - 01/07/2019 9:40 AM CDT Images from the original note were not included. Office Progress Note Reason for Visit: Sore Throat (Started Saturday); Cough (occasionally productive, Started Saturday); Headache (Started Saturday); and Fever (101 degree F, Last night) History of Present Illness: She is here today complaining of a cough, sore throat and slight shortness of breath since Saturday. She has had a fever up to 101 ??F last night. She has been taking Tylenol for her fever and headache without much relief. Her cough is nonproductive. She denies shortness of breath. She does not feel that she is wheezing. ROS: Review of Systems Constitutional: Negative for malaise/fatigue and weight loss. HENT: Negative for congestion, ear pain, hearing loss and tinnitus. Eyes: Negative for blurred vision. Respiratory: Positive for cough and sputum production. Negative for shortness of breath and wheezing. Cardiovascular: Negative [...] File Prior to Visit Medication Sig ??? Glucose Blood (FREESTYLE LITE) test strip by in vitro route. ??? insulin glargine (LANTUS SOLOSTAR) 100 UNIT/ML injection (PEN) Inject 45 Units into the skin every morning. ??? insulin lispro (HUMALOG KWIKPEN) 100 UNIT/ML injection (PEN) 15 units in the morning, 10 untis with lunch and dinner. SS with glucoe ??? latanoprost 0.005 % ophthalmic solution Apply 1 drop to eye. ??? levothyroxine 88 MCG tablet Take 88 mcg by mouth daily. ??? liraglutide (VICTOZA) 18 MG/3ML injection INJECT 1.8MG SUBCUTANEOUSLYDAILY ??? losartan-hydrochlorothiazide 100-25 MG tablet Take 1 tablet by mouth daily. ??? metFORMIN 500 MG tablet Take 500 mg by mouth 2 (two) times daily. ??? simvastatin 40 MG tablet Take 40 mg by mouth nightly at bedtime. ??? vitamin D2, ergocalciferol, 30442 UNITS capsule Take 1 capsule by mouth weekly. ??? celecoxib 200 MG capsule Take 200 mg by mouth daily. No current facility-administered medications on file prior [...] ??? Drug use: No ??? Sexual activity: No Lifestyle ??? Physical activity: Days per week: Not on file Minutes per session: Not on file ??? Stress: Not on file Relationships ??? Social connections: Talks on phone: Not on file Gets together: Not on file Attends mosque service: Not on file Active member of [...] time. She appears well- developed and well-nourished. HENT: Head: Normocephalic and atraumatic. Right Ear: External ear normal. Left Ear: External ear normal. Mouth/Throat: Oropharynx is clear and moist. Eyes: Conjunctivae and EOM are normal. Pupils are equal, round, and reactive to light. Cardiovascular: Normal rate, regular rhythm and normal heart sounds. Exam reveals no gallop and no friction rub. No murmur heard. Pulmonary/Chest: Effort normal. No respiratory distress. She has no wheezes. She has rales in the right lower field and the left lower field. Abdominal: Soft. Bowel sounds are normal. She exhibits no distension and no mass. There is no tenderness. There is no rebound and no guarding. Musculoskeletal: Normal range of motion. She exhibits no edema or deformity. Neurological: She is alert and oriented to person, place, and time. She has normal reflexes. No cranial nerve deficit. She exhibits normal muscle tone. Coordination and gait normal. Skin: Skin is warm and dry. No rash noted. Psychiatric: She has a normal mood and affect. Judgment normal. Nursing note and vitals reviewed. Filed Vitals: 01/07/19 1031 BP: 106/44 Pulse: 103 Resp: 18 SpO2: 98% Weight: 102 kg (224 lb 14.4 oz) Height: 5' (1.524 m) Diagnoses/Impression: 1. Cough XR CHEST PA+LAT benzonatate (TESSALON PERLES) 100 MG capsule 2. Shortness of breath XR CHEST PA+LAT 3. Acute bronchitis, unspecified organism doxycycline hyclate 100 MG capsule benzonatate (TESSALON PERLES) 100 MG capsule Recommendations and Plan: 1. Cough - XR CHEST PA+LAT; Future - benzonatate (TESSALON PERLES) 100 MG capsule; Take 1 capsule (100 mg total) by mouth 3 (three) times daily as needed for Cough. Dispense: 20 capsule; Refill: 0 2. Shortness of breath - XR CHEST PA+LAT; Future 3. Acute bronchitis, unspecified organism Antibiotics as prescribed. Rest, increase fluids, tylenol prn - doxycycline hyclate 100 MG capsule; Take 1 capsule (100 mg total) by mouth 2 (two) times daily for 10 days. Dispense: 20 capsule; Refill: 0 - benzonatate (TESSALON PERLES) 100 MG capsule; Take 1 capsule (100 mg total) by mouth 3 (three) times daily as needed for Cough. Dispense: 20 capsule; Refill: 0 Orders Placed This Encounter ??? XR CHEST PA+LAT ??? doxycycline hyclate 100 MG capsule ??? benzonatate (TESSALON PERLES) 100 MG capsule Cannot display discharge medications since this is not an admission. PCP: ELPIDIO SERRATO MD 01/07/2019 documented in this encounter Plan of Treatment Upcoming Encounters Date Type Department Care Team (Late st Contact Info) Description 07/13/2024 1:40 PM DIRECTOR OF EMPLOYEE DEVELOPMENT Office Visit [facility] Group Multispecialty Care - [address], [address] [place] [address] Kirill Montelongo MD 3 [place] [address] documented as of this encounter Results * XR CHEST PA+LAT (01/07/2019 11:09 AM CDT) Anatomical Region Laterality Modality Chest Radiographic Luba ging 01/07/2019 11:2 2 AM CDT Impressions 01/07/2019 2:33 PM CDT IMPRESSION: No acute cardiopulmonary findings. The attending radiologist has reviewed the image(s) and agrees with the content of this report. Interpreted By: Luan Mazariegos, 01/07/2019 11:22 AM Narrative 01/07/2019 2:33 PM CDT EXAMINATION: XR CHEST PA+LAT EXAM TIME: 01/07/2019 11:02 AM CLINICAL HISTORY: Cough, shortness of breath, fever for 4 days. COMPARISON: None available. TECHNIQUE: Upright frontal and lateral views of the chest obtained. FINDINGS: ? Cardiomediastinal silhouette is within upper limits of normal. Normal pulmonary vascularity. No pleural effusions, consolidation, or pneumothorax. Degenerative changes thoracic spine. Thoracic aortic calcifications. Procedure Note Joni Finn MD - 01/07/2019 EXAMINATION: XR CHEST PA+LAT EXAM TIME: 01/07/2019 11:02 AM CLINICAL HISTORY: Cough, shortness of breath, fever for 4 days. COMPARISON: None available. TECHNIQUE: Upright frontal and lateral views of the chest obtained. FINDINGS: Cardiomediastinal silhouette is within upper limits of normal.Normal pulmonary vascularity. No pleural effusions, consolidation, or pneumothorax. Degenerative changes thoracic spine. Thoracic aortic calcifications. IMPRESSION: No acute cardiopulmonary findings. The attending radiologist has reviewed the image(s) and agrees with the content of this report. Interpreted By: Luan Mazariegos, 01/07/2019 11:22 AM Elpidio Serrato MD GENERAL IMAGING Final Result documented in this encounter Visit Diagnoses Diagnosis Cough- Primary Shortness of breath Acute bronchitis, unspecified organism documented in this encounter Care Teams Meter Record Clerk Relationship Specialty Start Date End Date Elpidio Serrato MD [address] [place] [id number] PCP - General INTERNAL MEDICINE 06/19/18 documented as of this encounter
--- OUTSIDE RECORDS SUMMARY | 2024-04-29 13:58 | XMS_ITS | Encounter Summary ---
Author Organization [facility] Address [address] [place] [address]. [place], [place] [address] [place] [address] Care Team Providers Care Health And Safety Advisor Name Role Phone Elpidio Serrato MD Primary Care Provider [phone] Reason for Visit * Reason Comments Consent Doc (SCAN)* Care Everywhere Auth orization to Disclose Protected Health Information (PHI) Encounter Details Date Type Department Care Team (Late Contact Info) Description 06/23/2018 Scan HEALTH INFO SRVCS Scanned, Documents Consent Doc (SCAN)* (Care Everywhere Authorization to Disclose Protected Health Information (PHI)) Social History Tobacco Use Types Packs/Day Years Used Date Smoking Tobacco: Never Assessed Comments No Sex and Gender Information Value Date Recorded Sex Assigned at Female 08/12/2018 9:05 AM CDT Legal Sex Female 4:46 PM CDT Gender Identity Female 08/12/2018 9:05 AM CDT Sexual Orientation Straight 08/12/2018 9: 05 AM CDT documented as of this encounter Plan of Treatment Upcoming Encounters Date Type Department Care Team ([facility] Contact Info) Description 07/13/2024 1:40 PM WORKFORCE ANALYST Office Visit [facility] Multispecialty Care - [facility] 3 [facility], [address] [place] [address] Kirill Montelongo MD 3 [place] [address] documented as of this encounter Visit Diagnoses Not on filedocumented in this encounter Care Teams Health And Safety Advisor Relationship Specialty Start Date End Date Elpidio Serrato MD [address] [place] [phone] PCP - General INTERNAL MEDICINE 06/19/18 documented as of this encounter
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
--- OUTSIDE RECORDS SUMMARY | 2024-04-29 13:58 | XMS_ITS | Encounter Summary ---
Author Organization [facility] Address [address] [place] [address]. [place], [place] [address] [place] [address] Care Team Providers Care Electrical Wirer Name Role Phone Elpidio Jimenez MD Primary Care Provider [phone] Reason for Visit * Reason Comments Follow Up Hypertension Hyperlipidemia Diabetes Encounter Details Date Type Department Care Team (Late st Contact Info) Description 08/12/2018 8:40 AM CDT Office Visit [facility] Family & Internal Medicine [address] [address] Elpidio Jimenez MD [address] [place] [address] Follow Up; Hypertension; Hyperlipidemia; Diabetes Social History Tobacco Use Types Packs/Day Years [...] Sign Reading Time Taken Comments Blood Pressure 123/58 08/12/2018 9:09 AM CDT Pulse 74 08/12/2018 9:09 AM CDT Temperature - - Respiratory Rate 16 08/12/2018 9:09 AM CDT Oxygen Saturation 97% 08/12/2018 9:09 AM CDT Inhaled Oxygen Concentration - - Weight 104.4 kg (230 lb 3.2 oz) 08/12/2018 9:09 AM CDT Height 152.4 cm (5') 08/12/2018 9:09 AM CDT Body Mass Index 44.96 08/12/2018 9:09 AM CDT documented in this encounter Progress Notes * Elpidio Jimenez MD - 08/12/2018 8:40 AM CDT Images from the original note were not included. Office Progress Note Reason for Visit: Follow Up; Hypertension; Hyperlipidemia; and Diabetes History of Present Illness: She is here today for routine 6-month follow-up. Hypertension: Well-controlled on current medications. Patient is compliant with her medications without medication side effects. She denies chest pain, shortness of breath or headaches. She denies lightheadedness or dizziness. She does check her blood pressure occasionally at home. Diabetes mellitus type 2: Well-controlled on current medications. Patient is compliant with her medications without medication side effects. She denies hypoglycemic episodes. She does check her bloodsugar on a routine basis. Hyperlipidemia: Well-controlled on current medications. Patient is compliant with her medications without medication side effects. She denies muscle aches or joint pains. Hypothyroidism: She is compliant with her thyroid replacement medication. She denies signs or symptoms of hypothyroidism. Diabetic retinopathy: Patient follows with ophthalmology on a routine basis. By patient's report this is stable. ROS: Review of Systems Constitutional: Negative for [...] Take 200 mg by mouth daily. ??? insulin glargine (LANTUS SOLOSTAR) 100 UNIT/ML [...] nightly at bedtime. ??? vitamin D2, ergocalciferol, 39190 UNITS capsule Take 1 capsule by mouth [...] file Gets together: Not on file Attends pentecostalism service: Not on file Active member of [...] friction rub. No murmur heard. Pulmonary/Chest: Effort normal and breath sounds normal. No respiratory distress. She has no wheezes. She has no rales. Abdominal: Soft. Bowel sounds are normal. She [...] Nursing note and vitals reviewed. Filed Vitals: 08/12/18 0909 BP: 123/58 Pulse: 74 Resp: 16 SpO2: 97% Weight: 104.4 kg (230 lb 3.2 oz) Height: 5' (1.524 m) Diagnoses/Impression: 1. Need for prophylactic vaccination against Streptococcus pneumoniae (pneumococcus) PNEUMOCOCCAL CONJUGATE VACCINE 13 VALENT IM 2. Benign essential hypertension Chronic 3. Mixed hyperlipidemia Chronic 4. Acquired hypothyroidism Chronic 5. 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 Nonproliferative diabetic retinopathy (CMS/HCC) Chronic Recommendations and Plan: 1. Need for prophylactic vaccination against Streptococcus pneumoniae (pneumococcus) - PNEUMOCOCCAL CONJUGATE VACCINE 13 VALENT IM 2. Benign essential hypertension Well controlled on current medications 3. Mixed hyperlipidemia Well controlled on current medications 4. Acquired hypothyroidism Well controlled on current medications 5. 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 Nonproliferative diabetic retinopathy (CMS/HCC) Follows with Ophtho. Orders Placed This Encounter ??? [[id number]] Prevnar 13 (Pneumococcal) Cannot display discharge medications since this is not an admission. 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, without long-term current use of insulin, macular edema presence unspecified (CMS/HCC HHS/HCC) Mixed hyperlipidemia Acquired hypothyroidism Unspecified hypothyroidism Nonproliferative diabetic retinopathy (CMS/HCC HHS/HCC) Type II or unspecified type diabetes mellitus with ophthalmic manifestations, not stated as uncontrolled Need for prophylactic vaccination against Streptococcus pneumoniae (pneumococcus) Need for prophylactic vaccination against streptococcus pneumoniae (pneumococcus) documented in this encounter Care Teams Electrical Wirer Relationship Specialty Start Date End Date Elpidio Jimenez MD [address] [place] [address] PCP - General INTERNAL MEDICINE 06/19/18 documented as of this encounter
--- OUTSIDE RECORDS SUMMARY | 2024-04-29 13:58 | XMS_ITS | Encounter Summary ---
Author Organization [facility] Address [address] [place] [address]. [place], [place] [address] [place] [address] Care Team Providers Care Ring Maker Name Role Phone Elpidio Serrato MD Primary Care Provider [phone] Encounter Details Date Type Department Care Team (Latest Contact Info) Description 03/31/2019 Scan HEALTH INFO SRVCS Scanned, Documents Social [...] st Contact Info) Description 07/13/2024 1:40 PM OIL DISTRIBUTOR Office Visit [facility] Multispecialty Care - [address], [address] [place] [address] Kirill Montelongo MD [address] [place] [address] documented as of this encounter Visit Diagnoses Not on filedocumented in this encounter Care Teams Ring Maker Relationship Specialty Start Date End Date Elpidio Serrato MD [address] [place] [address] PCP - General INTERNAL MEDICINE 06/19/18 documented as of this encounter
--- OUTSIDE RECORDS SUMMARY | 2024-04-29 13:58 | XMS_ITS | Encounter Summary ---
Author Organization [facility] Address [address] [place] [address]. [place], [place] [address] [place] [address] Care Team Providers Care C Software Developer Name Role Phone Elpidio Serrato MD Primary Care Provider [phone] Reason for Visit * Reason Comments Immunization/Injection (SCAN) PREVNAR Encounter Details Date Type Department Care Team (Late Contact Info) Description 08/12/2018 Scan HEALTH INFO SRVCS Scanned, Documents Immunization/Injection (SCAN) (PREVNAR ) Social History Tobacco Use Types Packs/Day [...] Upcoming Encounters Date Type Department Care Team ([facility] Contact Info) Description 07/13/2024 1:40 PM CHEMIST PHYSICAL Office Visit [facility] Multispecialty Care - [address], [address] [place] [address] Kirill Montelongo MD [address] [place] [address] documented as of this encounter Visit Diagnoses Not on filedocumented in this encounter Care Teams C Software Developer Relationship Specialty Start Date End Date Elpidio Serrato MD [address] [place] [address] [id number] PCP - General INTERNAL MEDICINE 06/19/18 documented as of this encounter
--- OUTSIDE RECORDS SUMMARY | 2024-04-29 13:59 | XMS_ITS | Encounter Summary ---
Author Organization [facility] Address [address] [place] [address]. [place], [place] [address] [place] [address] Care Team Providers Care Floor Mechanic Name Role Phone Unavailable Primary Care Provider Unavailabl e Reason for Visit * Reason Comments Discharge Summary (SCAN) Discharge Home Medication List Encounter Details Date Type Department Care Team (Late Contact Info) Description 01/21/2018 Scan HEALTH INFO SRVCS Scanned, Documents Discharge Summary (SCAN) (Discharge Home Medication List) Social History Tobacco Use Types Packs/Day Years [...] Upcoming Encounters Date Type Department Care Team ([facility] Contact Info) Description 07/13/2024 1:40 PM PILE DRIVING TECHNICIAN Office Visit [facility] Multispecialty Care - [address], [address] [place] [address] Kirill Montelongo MD [address] [place] [address] documented as of this encounter Visit Diagnoses Not on filedocumented in this encounter
--- OUTSIDE RECORDS SUMMARY | 2024-04-29 13:59 | XMS_ITS | Encounter Summary ---
Author Organization [facility] Address [address] [place] [address]. [place], [place] [id number] [place] [address] Care Team Providers Care Lime Supervisor Name Role Phone Elpidio Serrato MD Primary Care Provider [phone] Reason for Visit * Reason Comments Lab (SCAN) Encounter Details Date Type Department Care Team (Latest Contact Info) Description 06/16/2018 Scan HEALTH INFO SRVCS Scanned, Documents Lab (SCAN) Social History Tobacco Use Types [...] Contact Info) Description 07/13/2024 1:40 PM DIRECTOR BUSINESS MANAGEMENT Office Visit [facility] Multispecialty Care - [address], [address] [place] [address] Kirill Montelongo MD [address] [place] [address] documented as of this encounter Procedures Procedure Name Priority Date/Time Associated Diagnosis Comments OUTSIDE LAB (SCAN ORDER) Routine 06/16/2018 documented in this encounter Results * OUTSIDE LAB (06/16/2018) 06/16/2018 us Documents Scanned SCANNING Edited Result - Final documented in this encounter Visit Diagnoses Not on filedocumented in this encounter Care Teams Lime Supervisor Relationship Specialty Start Date End Date Elpidio Serrato MD [address] [place] [phone] PCP - General INTERNAL MEDICINE 06/19/18 documented as of this encounter
--- OUTSIDE RECORDS SUMMARY | 2024-04-29 13:59 | XMS_ITS | Encounter Summary ---
Author Organization [facility] Address [address] [place] [address]. [place], [place] [address] [place] [address] Care Team Providers Care Reconditioning Associate Name Role Phone Unavailable Primary Care Provider Unavailabl e Encounter Details Date Type Department Care Team (Late st Contact Info) Description 02/10/2018 Abstract [facility] Family & Internal Medicine [facility] [address] [place] [address] Elpidio Serrato MD [address] [place] [address] Social History Tobacco Use Types Packs/Day Years [...] Sign Reading Time Taken Comments Blood Pressure 134/62 02/10/2018 1:15 PM CDT Pulse 88 02/10/2018 1:15 PM CDT Temperature - - Respiratory Rate - - Oxygen Saturation - - Inhaled Oxygen Concentration - - Weight 104.3 kg (230 lb) 02/10/2018 1:15 PM CDT Height 152.4 cm (5') 02/10/2018 1:15 PM CDT Body Mass Index 44.92 02/10/2018 1:15 PM CDT documented in this encounter Progress Notes * Elpidio Serrato MD - 02/10/2018 1:00 PM CDT Reason For Visit New Patient Visit Chief Complaint Patient is here to establish care History of Present Illness She is here to establish care as a new patient. She was previously seeing Dr. Hartmann; however, she did not like seeing his physician community program assistant and she wanted to transfer. Patient states that she has not had a diabetic eye exam for 2 years and has not had an eye exam forher glaucoma for over two years. She is not taking her medications regularly, but she does not feelthat her eyesight has changed at all. Fall Risk Assessment: Falls: Reports one fall without injury in past year. PHQ-9 Depression Questionnaire: Over the past 2 weeks, how often have you been bothered by the following problems^2 1.) Little interest or pleasure in doing things^2 Not at all. 2.) Feeling down, depressed or hopeless^2 Not at all. 3.) Trouble falling asleep or sleeping too much^2 Not at all. 4.) Feeling tired or having little energy^2 Half the days or more. 5.) Poor appetite or overeating^2 Several days. 6.) Feeling bad about yourself, or that you are a failure, or have let yourself or your family down^2 Not at all. 7.) Trouble concentrating on things, such as reading a newspaper or watching television^2 Several days. 8.) Moving or speaking so slowly that other people could have noticed, or the opposite, moving or speaking faster than usual^2 Several days. 9.) Thoughts that you would be off or of hurting yourself in some way^2 Not at all. TOTAL SCORE: 5, severity of depression is mild. How difficult have these problems made it for you to do your work, take care of things at home, or get along with people^2 Somewhat difficult. Hypothyroidism (Follow-Up): The patient reports doing well. She has had no significant interval events. The patient is currently asymptomatic. Medications: the patient is adherent to her medication regimen, but she denies medication side effects. Disease management: the patient is doing well with her goals. Hyperlipidemia (Follow-Up): The patient states her hyperlipidemia has been under good control sincethe last visit. Comorbid Illnesses: diabetes mellitus and hypertension. She has no significant interval events. Symptoms: The patient is currently asymptomatic. Medications: the patient is adherent with her medication regimen. She denies medication side effects.. The patient is doing well with her hyperlipidemia goals. Hypertension (Follow-Up): The patient presents for follow-up of primary hypertension. The patient states she has been doing well with her blood pressure control since the last visit. She has no significant interval events. Symptoms: The patient is currently asymptomatic. Home monitoring: The patient checks her blood pressure regularly.. Blood pressure control has been good. Medications: the patient is adherent with her medication regimen. She denies medication side effects.. Diabetes Type II (Follow-Up): The patient states she has been stable with her Type II Diabetes control since the last visit. Comorbid Illnesses: hypertension and hyperlipidemia. She has no known diabetic complications. She has no significant interval events. Symptoms: The patient is currently asymptomatic. Home monitoring: The patient checks her blood sugars regularly. Glycemic control has been good.. Medications: the patient is adherent with her medication regimen. She denies medication side effects.. The patient is doing well with her diabetes goals. Review of Systems Constitutional, Eyes, ENT, Cardiovascular, Respiratory, Gastrointestinal, Genitourinary, Musculoskeletal, Integumentary, Neurological, Psychiatric, Endocrine and Hematologic review of systems normal except as noted. Vitals Recorded: 10Feb2018 01:15PM Heart Rate 88 Respiration 14 Systolic 134 Diastolic 62 O2 Saturation 98 Height 5 ft Weight 230 lb BMI Calculated 44.92 BSA Calculated 1.98 Physical Exam right 2+ and left 2+. Constitutional General appearance: No acute distress, well appearing and well nourished. Eyes Conjunctiva and lids: No swelling, erythema or discharge. Pupils and irises: Equal, round and reactive to light. Ears, Nose, Mouth, and Throat External inspection of ears and nose: Normal. Otoscopic examination: Tympanic membranes translucent with normal light reflex. Canals patent without erythema. Oropharynx: Normal with no erythema, edema, exudate or lesions. Pulmonary Respiratory effort: No increased work of breathing or signs of respiratory distress. Auscultation of lungs: Clear to auscultation. Cardiovascular Palpation of heart: Normal PMI, no thrills. Auscultation of heart: Normal rate and rhythm, normal S1 and S2, without murmurs. Examination of extremities for edema and/or varicosities: Normal. Abdomen Abdomen: Non-tender, no masses. Musculoskeletal Gait and station: Normal. Neurologic Cranial nerves: Cranial nerves 2-12 intact. Psychiatric Mood and affect: Normal. Counseling The patient was counseled regarding diagnostic results, instructions for management, impressions and risks and benefits of treatment options. total time of encounter was 45 minutes and 40 minutes wasspent counseling. Assessment 1. Type 2 diabetes mellitus (250.00) (E11.9) 2. Benign essential hypertension (401.1) (I10) 3. Hyperlipidemia (272.4) (E78.5) 4. Glaucoma, open-angle (365.10,365.70) (H40.10X0) 5. Hypothyroidism (244.9) (E03.9) 6. Diabetic retinopathy (250.50,362.01) (E11.319) 7. Osteoarthritis of knees, bilateral (715.96) (M17.0) Plan Benign essential hypertension, Hyperlipidemia, Hypothyroidism, Type 2 diabetes mellitus 1. CBC W Differential; Status:Hold For - Manual Activation; Requested for:11Aug2018; [facility]; Due:10Sep2018;Ordered; For:Benign essential hypertension, Hyperlipidemia, Hypothyroidism, Type 2 diabetes mellitus; Ordered By:Elpidio Serrato; 2. Follow-up visit in 6 months Outpatient Follow-up Status: Complete Done: 10Feb2018 Ordered; For: Benign essential hypertension, Hyperlipidemia, Hypothyroidism, Type 2 diabetes mellitus; Ordered By: Elpidio Serrato Performed: Due: 24Feb2018; Last Updated By: Navya Jasmine; 02/10/2018 1:58:17 PM 3. Compr Metabolic Prof ( CMP ); Status:Hold For - Manual Activation; Requested for:11Aug2018; [facility]; Due:10Sep2018;Ordered; For:Benign essential hypertension, Hyperlipidemia, Hypothyroidism, Type 2 diabetes mellitus; Ordered By:Elpidio Serrato; 4. Creatine Kinase ( CK ) ( CPK ); Status:Hold For - Manual Activation; Requested for:11Aug2018; [facility]; Due:10Sep2018;Ordered; For:Benign essential hypertension, Hyperlipidemia, Hypothyroidism, Type 2 diabetes mellitus; Ordered By:Elpidio Serrato; 5. Free T4 ( Thyroxine ); Status:Hold For - Manual Activation; Requested for:11Aug2018; [facility]; Due:10Sep2018;Ordered; For:Benign essential hypertension, Hyperlipidemia, Hypothyroidism, Type 2 diabetes mellitus; Ordered By:Elpidio Serrato; 6. Hemoglobin A1C ( HA1C ); Status:Hold For - Manual Activation; Requested for:11Aug2018; [facility]; Due:10Sep2018;Ordered; For:Benign essential hypertension, Hyperlipidemia, Hypothyroidism, Type 2 diabetes mellitus; Ordered By:Elpidio Serrato; 7. Lipid Profile; Status:Hold For - Manual Activation; Requested for:11Aug2018; Perform:[facility]; Due:10Sep2018;Ordered; For:Benign essential hypertension, Hyperlipidemia, Hypothyroidism, Type 2 diabetes mellitus; Ordered By:Elpidio Serrato; 8. Thyroid Stim Hormone ( TSH ); Status:Hold For - Manual Activation; Requested for:11Aug2018; Perform:[facility]; Due:10Sep2018;Ordered; For:Benign essential hypertension, Hyperlipidemia, Hypothyroidism, Type 2 diabetes mellitus; Ordered By:Elpidio Serrato; 9. TSH W Reflex Free T4; Status:Hold For - Manual Activation; Requested for:11Aug2018; Perform:. [facility]; Due:10Sep2018;Ordered; For:Benign essential hypertension, Hyperlipidemia, Hypothyroidism, Type 2 diabetes mellitus; Ordered By:Elpidio Serrato; 10. Urinalysis ( UA ) Culture If Ind; Status:Hold For - Manual Activation; Requested for:11Aug2018; Perform:. [facility]; Due:10Sep2018;Ordered; For:Benign essential hypertension, Hyperlipidemia, Hypothyroidism, Type 2 diabetes mellitus; Ordered By:Elpidio Serrato; Source: : Clean Catch 11. Urine Microalb / Creat Ratio; Status:Hold For - Manual Activation; Requested for:11Aug2018; Perform:[facility]; Due:10Sep2018;Ordered; For:Benign essential hypertension, Hyperlipidemia, Hypothyroidism, Type 2 diabetes mellitus; Ordered By:Elpidio Serrato; 12. Vitamin D 25 - Hydroxy; Status:Hold For - Manual Activation; Requested for:11Aug2018; [facility]:. [facility]; Due:10Sep2018;Ordered; For:Benign essential hypertension, Hyperlipidemia, Hypothyroidism, Type 2 diabetes mellitus; Ordered By:Elpidio Serrato; Diabetic retinopathy, Glaucoma, open-angle 13. Ophthalmology Referral Outpatient Refer to Optho for annual, diabetic eye exam. Status: Need Information - Financial Authorization Requested for: 10Feb2018 Ordered; For: Diabetic retinopathy, Glaucoma, open-angle; Ordered By: Elpidio Serrato Performed: Due: 24Feb2018 to Provider Name or Group Name: : Dr. Soni Kim Reason : Services not available in house Class : Outside [facility] Type 2 diabetes mellitus 14. Quality Control Technician Referral Outpatient Quality Control Technician Refer for poorly contolled DM, Obesity Status: Need Information - Financial Authorization Requested for: 10Feb2018 Ordered; For: Type 2 diabetes mellitus; Ordered By: Elpidio Serrato Performed: Due: 24Feb2018 to Provider Name or Group Name: : Judy Reason : Patient Preference Class : Outside [facility] I explained to her that it is essential that she have an eye exam yearly if not more frequent due to the chances of blindness with both glaucoma and diabetic retinopathy. She voiced understanding butwas not sure when she was going to make a follow up appointment. Discussion/Summary Positive adult depression screening.. Tobacco use screening completed. Falls risk assessment completed. PHQ-9 Completed (Score 5). Signatures Electronically signed by : Elpidio Serrato M.D.; Feb 13 2018 6:39AM FOOD TASTER (Author) documented in this encounter Plan of Treatment Upcoming Encounters Date Type Department Care Team (Late st Contact Info) Description 07/13/2024 1:40 PM FOOD TASTER Office Visit [facility] Multispecialty Care - [facility] [address] [facility], [address] [place] [address] Kirill Montelongo MD [address] [place] [address] documented as of this encounter Visit Diagnoses Not on filedocumented in this encounter
--- OUTSIDE RECORDS SUMMARY | 2024-04-29 13:59 | XMS_ITS | Encounter Summary ---
Author Organization [facility] Address [address] [place] [address]. [place], [place] [address] [place] [address] Care Team Providers Care Cnmt Name Role Phone Unavailable Primary Care Provider Unavailabl e Reason for Visit * Reason Comments Patient Provided Info (SCAN) New Adult P atient History Encounter Details Date Type Department Care Team (Late st Contact Info) Description 02/10/2018 Scan HEALTH INFO SRVCS Scanned, Documents Patient Provided Info (SCAN) (New Adult Patient History) Social History Tobacco Use Types Packs/Day Years [...] (Late Contact Info) Description 07/13/2024 1:40 PM COLUMNIST Office Visit [facility] Multispecialty Care - [facility] [address] [facility], [address] [place] [address] Kirill Montelongo MD [address] [place] [address] documented as of this encounter Visit Diagnoses Not on filedocumented in this encounter
--- OUTSIDE RECORDS SUMMARY | 2024-04-29 13:59 | XMS_ITS | Encounter Summary ---
Author Organization [facility] Address [address] [place] [address]. [place], [place] [address] [place] [address] Care Team Providers Care Reduction Furnace Operator Name Role Phone Elpidio Serrato MD Primary Care Provider [phone] Reason for Visit * Reason Comments Lab (SCAN) Encounter Details Date Type Department Care Team (Latest Contact Info) Description 06/12/2018 Scan HEALTH INFO SRVCS Scanned, Documents Lab [...] st Contact Info) Description 07/13/2024 1:40 PM DITCHING MACHINE OPERATING ENGINEER Office Visit [facility] Multispecialty Care - [address], [address] [place] [address] Kirill Montelongo MD [address] [place] [address] documented as of this encounter Procedures Procedure Name Priority Date/Time Associated Diagnosis Comments IMAGE GENERIC Routine 06/12/2018 documented in this encounter Results * IMAGE STUDY (06/12/2018) Anatomical Region Laterality Modality Other us Documents Scanned SCANNING Final Result documented in this encounter Visit Diagnoses Not on filedocumented in this encounter Care Teams Reduction Furnace Operator Relationship Specialty Start Date End Date Elpidio Serrato MD [address] [place] [address] PCP - General INTERNAL MEDICINE 06/19/18 documented as of this encounter
--- OUTSIDE RECORDS SUMMARY | 2024-04-29 13:59 | XMS_ITS | Encounter Summary ---
Author Organization [facility] Address [address] [place] [address]. [place], [place] [address] [place] [address] Care Team Providers Care Truck Spotter Name Role Phone Unavailable Primary Care Provider Unavailabl e Encounter Details Date Type Department Care Team (Latest Contact Info) Description 03/07/2018 Abstract [facility] , Austin Patel MD Social History Tobacco Use Types Packs/Day [...] st Contact Info) Description 07/13/2024 1:40 PM CUPOLA LINER HELPER Office Visit [facility] Multispecialty Care - [facility] [address] [facility], [address] [place] [address] Kirill Montelongo MD [address] [place] [address] documented as of this encounter Visit Diagnoses Not on filedocumented in this encounter
--- OUTSIDE RECORDS SUMMARY | 2024-04-29 13:59 | XMS_ITS | Encounter Summary ---
Author Organization [facility] Address [address] [place] [address]. [place], [place] [address] [place] [address] Care Team Providers Care Cryptographic Clerk Name Role Phone Unavailable Primary Care Provider Unavailabl e Encounter Details Date Type Department Care Team (Latest Contact Info) Description 03/05/2017 Scan HEALTH INFO SRVCS Scanned, Documents Social [...] st Contact Info) Description 07/13/2024 1:40 PM BEDSPREAD CUTTER HAND Office Visit [facility] Multispecialty Care - [facility] [address] [facility], [address] [place] [address] Kirill Montelongo MD [address] [place] [address] documented as of this encounter Visit Diagnoses Not on filedocumented in this encounter
--- OUTSIDE RECORDS SUMMARY | 2024-04-29 14:04 | XMS_ITS | Encounter Summary ---
Author Organization [facility] Healthcare Address [address] [place] [address] Care Team Providers Care Fur Feeder Name Role Phone Elpidio Serrato MD Primary Care Provider [phone] Encounter Details Date Type Department Care Team (Late st Contact Info) Description 01/31/2024 Orders Only [facility] [phone] Unknown, Notinfile Social History Tobacco Use Types Packs/Day Years Used Date Smoking Tobacco: Never Smokeless Tobacco: Never AUDIT-C Answer Date Recorded Q1: How often do you have a drink containing alcohol? Never 01/20/2024 Q2: How many drinks containi ng alcohol do you have on a typical day when you are drinking? Patient does not drink Q3: How often do you have si x or more drinks on one occasion? Never 01/20/2024 Personal Safety Answer Date Recorded Have you ever been in or are you currently in a harmful physical or emotional relationship or is someone making you feel afraid or unsafe? 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 Gender Identity Female 05/13/2021 4:21 PM ADVERTISING AGENCY MANAGER Sexual Orientation Not on file documented as of this encounter Plan of Treatment Not on file documented as of this encounter Procedures Procedure Name Priority Date/Time Associated Diagnosis Comments EGFR Routine 01/31/2024 5:00 AM CDT DIFFERENTIAL AUTO Routine 01/31/2024 5:0 0 AM CDT PRO B-TYPE NATRIURETIC PEPTIDE Routine 01/31/2024 5:00 AM CDT CBC WITH AUTO DIFFERENTIAL Routine 01/31/2024 5:00 AM CDT BASIC METABOLIC PANEL Routine 01/31/2024 5:00 AM CDT documented in this encounter Results * (ABNORMAL) eGFR (01/31/2024 5:00 AM CDT) [facility] eGFR 36(L) >=60 mL/min/1. 73 m2 JORGE Comment: Interpretive Data Reference Interval Normal ?>/= 90 mL/min/1.73m2 Mildly decreased* ? 60 - 89 mL/min/1.73m2 Mildly to moderately decreased ?45 - 59 mL/min/1.73m2 Moderately to severely decreased ??30 - 44 mL/min/1.73m2 Severely decreased ?15 - 29 mL/min/1.73m2 Kidney Failure ?< 15 ??mL/min/1.73m2 *Relative to young adult level Estimated glomerular filtration rate is determined by the 2020 CKD-EPI equation recommended by the National Kid[employer] (A Unifying Approach to GFR Estimation: Recommendations of the NKF-ASK Task Force on Reassessing the Inclusion of Race in Diagnosing Kidney Disease, JASN 2020). The CKD-EPI equation should not be used for patients with unstable renal function and has not been validated in children and those over 70. Current interpretive data was last reviewed 2021. Testing performed by: [facility], [address] [place] [address], [place]., [address] Blood 01/31/2024 5:00 AM CDT 01/31/2024 8:23 AM CDT us Notinfile Unknown LAB BLOOD ORDERABLES Final Res ult JORGE EDGE [address] [facility] Department [place] [address] * (ABNORMAL) Pro B-type natriuretic peptide (01/31/2024 5:00 AM CDT) NT-proBNP 4,427(H) <=300 pg/mL JORGE KELY Comment: Interpretive Comments: A. Dyspnea in Acute Care Setting All Ages: ?< 300 pg/ml, acute heart failure unlikely. < 50 yrs: ?300 - 450 pg/ml, further investigation warranted. ? > 450 pg/ml, acute heart failure likely. 50 - 74 yrs: ? 300 - 900 pg/ml, further investigation warranted. ? > 900 pg/ml, acute heart failure likely . > or = 75 yrs: ? 450 - 1800 pg/ml, further investigation warranted. ? > 1800 pg/ml, acute heart failure likely. B. Non-acute Setting < 75 yrs ? < 125 pg/ml, rules out heart failure. ? > or = 125 pg/ml, further investigation warranted. > or = 75 yrs ?< 450 pg/ml, rules out heart failure. ? > or = 450 pg/ml, further investigation warranted. - Knowledge of each individual patient's NT-proBNP range may be more useful than using similar cut-points for every patient. Please note that marked elevations in NT-proBNP levels may be observed in state other than Left Ventricular Congestive Failure, including: acute coronary syndromes, right heart strain/failure (including pulmonary embolism and cor pulmonale), critical illness, renal failure, as well as advanced age. - References: 1. He ALEJANDRO et.al. Eur Heart J. 2006:27:330-337. 2. Malick RW, Karina QUIROGA. J. AM Remi Cardiol: Cardiovasc Imag. 2009;2: 216- 225. Interpretive Data Last Revised Date: 2017. Testing performed by: [address] [address] Blood 01/31/2024 5:00 AM CDT 01/31/2024 8:23 AM CDT us Notinfile Unknown LAB BLOOD ORDERABLES Final Res ult JORGE [address] [facility] Department [place] [address] * (ABNORMAL) Basic metabolic panel (01/31/2024 5:00 AM CDT) Sodium 142 135 - 145 mmol/L JORGE Comment:Testing performed by : [address] [address] Potassium, pl 4.5 3.3 - 4.9 mmol/L JORGE Comment:Testing performed by : [address] [address] Chloride 108 97 - 110 mmol/L JORGE Comment:Testing performed by : [address] [address] CO2 21(L) 22 - 32 mmol/L JORGE Comment:Testing performed by : [address] [address] Anion gap 13 2 - 15 mmol/L JORGE Comment:Testing performed by : [address] [address] BUN 28(H) 6 - 25 mg/dL JORGE Comment:Testing performed by : [address] [address] Creatinine 1.50(H) 0.60 - 1.10 mg/dL JORGE Comment:Testing performed by : [address] [address] Glucose 133 70 - 199 mg/dL JORGE Comment: Interpretive Data Fasting glucose >/= 126 mg/dl is diagnostic for diabetes. ?? Fasting is defined as no caloric intake for at least 8 hours. Fasting glucose between 100 mg/dl to 125 mg/dl is diagnostic of prediabetes. In a patient with classic symptoms of hyperglycemia or hyperglycemic crisis, a random glucose >/= 200 mg/dl is diagnostic for diabetes. In the absence of unequivocal hyperglycemia, results should be confirmed by repeat testing. The classification and Diagnosis of Diabetes Diabetes Care 202; 46: S19-S40. Current interpretive data was last revised 2022. Testing performed by: [address] [address] Calcium 8.9 8.5 - 10.3 mg/dL JORGE Comment:Testing performed by : [address] [address] Blood 01/31/2024 5:0 0 AM CDT 01/31/2024 8:23 AM CDT us Notinfile Unknown LAB BLOOD ORDERABLES Final Res ult JORGE [address] [facility] Department [place] [address] * Differential, auto (01/31/2024 5:00 AM CDT) Neutrophil abs 4.7 1.5 - 6.5 K/cumm JORGE Comment:Testing performed by : [address] [address] Imm gran abs 0.1 0.0 - 0.1 K/cumm JORGE Comment:Testing performed by : [address] [address] Lymphocyte abs 1.8 0.8 - 3.3 K/cumm JORGE Comment:Testing performed by : [address] [address] Monocyte abs 0.7 0.2 - 0.8 K/cumm JORGE Comment:Testing performed by : [address] [address] Eosinophil abs 0.1 0.0 - 0.5 K/cumm [facility] Comment:Testing performed by : [address] [address] Basophil abs 0.1 0.0 - 0.1 K/cumm [facility] Comment:Testing performed by : [address] [address] Neutrophil pct 61.7 % [facility] Comment: Interpretive Data Percent cell count reference ranges are not reported, since discordance with absolute values may lead to misinterpretation of CBC data. Current Interpretive Data was last revised on 2017. Testing performed by: [address] [address] Imm gran pct 1.6 % [facility] Comment: Interpretive Data Percent cell count reference ranges are not reported, since discordance with absolute values may lead to misinterpretation of CBC data. Current Interpretive Data was last revised on 2017. Testing performed by: [address] [address] Lymphocyte pct 24.4 % [facility] Comment: Interpretive Data Percent cell count reference ranges are not reported, since discordance with absolute values may lead to misinterpretation of CBC data. Current Interpretive Data was last revised on 2017. Testing performed by: [address] [address] Monocyte pct 9.7 % [facility] Comment: Interpretive Data Percent cell count reference ranges are not reported, since discordance with absolute values may lead to misinterpretation of CBC data. Current Interpretive Data was last revised on 2017. Testing performed by: [address] [address] Eosinophil pct 1.9 % [facility] Comment: Interpretive Data Percent cell count reference ranges are not reported, since discordance with absolute values may lead to misinterpretation of CBC data. Current Interpretive Data was last revised on 2017. Testing performed by: [address] [address] Basophil pct 0.7 % [facility] Comment: Interpretive Data Percent cell count reference ranges are not reported, since discordance with absolute values may lead to misinterpretation of CBC data. Current Interpretive Data was last revised on 2017. Testing performed by: [address] [address] Blood 01/31/2024 5:00 AM CDT 01/31/2024 8:23 AM CDT us Notinfile Unknown LAB BLOOD ORDERABLES Final Res ult JORGE [address] [facility] Department [place] [address] * (ABNORMAL) CBC with auto differential (01/31/2024 5:00 AM CDT) WBC 7.6 3.8 - 9.9 K/cumm [facility]OR[facility] EDGE Comment:Testing performed by : [address] [address] Hgb 8.2(L) 11.9 - 15.5 g/dL [facility] EDGE Comment:Testing performed by : [address] [address] Hct 26.1(L) 35.6 - 45.5 % [facility] EDGE Comment:Testing performed by : [address] [address] Plt 352 150 - 400 K/cumm JORGE Comment:Testing performed by : [address] [address] MPV 10.7 9.1 - 12.3 fL JORGE Comment:Testing performed by : [address] [address] RBC 2.80(L) 3.90 - 5.20 M/cumm JORGE Comment:Testing performed by : [address] [address] MCV 93.2 81.3 - 96.4 fL [facility] EDGE Comment:Testing performed by : [address] [address] MCH 29.3 27.1 - 33.3 pg JORGE DEGE Comment:Testing performed by : [address] [address] MCHC 31.4(L) 32.3 - 35.7 g/dL JORGE Comment:Testing performed by : [address], [address] RDW CV 14.6 11.1 - 14.9 % JORGE Comment:Testing performed by : [address] [address] RDW SD 48.3(H) 35.7 - 48.1 fL JORGE Comment:Testing performed by : [address] [address] NRBC abs 0.00 0.00 - 0.01 K/cumm JORGE Comment:Testing performed by : [address], [address] Blood 01/31/2024 5:00 AM CDT 01/31/2024 8:23 AM CDT us Notinfile Unknown LAB BLOOD ORDERABLES Final Res ult JORGE [address] [facility] Department [place] [address] documented in this encounter Visit Diagnoses Not on filedocumented in this encounter Additional Health Concerns Infection Onset Date Last Indicated Resolved Time Ring Surveillance Comment:C.auris Ring Surveillance Flag is placed and removed manually by IP. However, if the patient is discharged before their swab is collected, it will remain on a patient's chart for 7 days after discharge in case the patient is re-admitted elsewhere. Pt is undergoing Ring Surveillance for admission to [facility]. CAPRI Tolbert [facility] 01/21/2024 01/21/2024 02/04/2024 3:05 AM C DT documented as of this encounter Care Teams Fur Feeder Relationship Specialty Start Date End Date Elpidio Serrato MD PCP - General Internal Medicine 06/09/18 documented as of this encounter
--- OUTSIDE RECORDS SUMMARY | 2024-04-29 14:04 | XMS_ITS | Encounter Summary ---
Author Organization [facility] Healthcare Address [address] [place] [address] Care Team Providers Care [employer] Name Role Phone Elpidio Serrato MD Primary Care Provider [phone] Encounter Details Date Type Department Care Team (Late st Contact Info) Description 03/02/2024 3:15 PM CDT Lab [facility] Advanced Medicine 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 Sexual Orientation Not on file documented as of this encounter Plan of Treatment Not on file documented as of this encounter Procedures Procedure Name Priority Date/Time Associated Diagnosis Comments EGFR Routine 03/02/2024 12:20 PM CDT Type 2 diabetes mellitus with hyperlipidemia (HCC) DIFFERENTIAL AUTO Routine 03/02/2024 12: 20 PM CDT Iron deficiency anemia, unspecified iron deficiency anemia type PRO B-TYPE NATRIURETIC PEPTIDE Routine 03/02/2024 12:20 PM CDT Heart failure, unspecified HF chronicity, unspecified heart failure type (HCC) THYROID FUNCTION CASCADE Routine 03/02/2024 12:20 PM CDT 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 IRON PROFILE W/ IBC Routine 03/02/2024 1 2:20 PM CDT Iron deficiency anemia, unspecified iron deficiency anemia type CBC WITH AUTO DIFFERENTIAL Routine 03/02/2024 12:20 PM CDT Iron deficiency anemia, unspecified iron deficiency anemia type RETICULOCYTES Routine 03/02/2024 12:20 PM CDT Iron deficiency anemia, unspecified iron deficiency anemia type VITAMIN B12 Routine 03/02/2024 12:20 PM CDT Iron deficiency anemia, unspecified iron deficiency anemia type RENAL FUNCTION PANEL Routine 03/02/2024 12:20 PM CDT Type 2 diabetes mellitus with hyperlipidemia (HCC) LIPID PANEL Routine 03/02/2024 12:20 PM CDT Mixed hyperlipidemia documented in this encounter Results * (ABNORMAL) eGFR (03/02/2024 12:20 PM CDT) eGFR 45(L) >=60 mL/min/1. 73 m2 Comment: Interpretive Data Reference Interval Normal ?>/= [...] Current interpretive data was last reviewed 2021. Blood 03/02/2024 12:2 0 PM CDT 03/02/2024 12:56 PM CDT us Merna Bell MD LAB BLOOD ORDERABLES Final Re sult [facility] [place] [address] * Differential, auto (03/02/2024 12:20 PM CDT) Neutrophil abs 4.9 1.5 - 6.5 K/cumm Imm gran abs 0.0 0.0 - 0.1 K/cumm [facility] Lymphocyte abs 2.1 0.8 - 3.3 K/cumm [facility] Monocyte abs 0.6 0.2 - 0.8 K/cumm [facility] Eosinophil abs 0.1 0.0 - 0.5 K/cumm [facility] Basophil abs 0.0 0.0 - 0.1 K/cumm [facility] Neutrophil pct 62.9 % [facility] Comment: Interpretive Data Percent cell count reference ranges are not reported, since discordance with absolute values may lead to misinterpretation of CBC data. Current Interpretive Data was last revised on 2017. Imm gran pct 0.3 % [facility] Comment: Interpretive Data Percent cell count reference ranges are not reported, since discordance with absolute values may lead to misinterpretation of CBC data. Current Interpretive Data was last revised on 2017. Lymphocyte pct 27.0 % [facility] Comment: Interpretive Data Percent cell count reference ranges are not reported, since discordance with absolute values may lead to misinterpretation of CBC data. Current Interpretive Data was last revised on 2017. Monocyte pct 7.9 % [facility] Comment: Interpretive Data Percent cell count reference ranges are not reported, since discordance with absolute values may lead to misinterpretation of CBC data. Current Interpretive Data was last revised on 2017. Eosinophil pct 1.4 % [facility] Comment: Interpretive Data Percent cell count reference ranges are not reported, since discordance with absolute values may lead to misinterpretation of CBC data. Current Interpretive Data was last revised on 2017. Basophil pct 0.5 % [facility] Comment: Interpretive Data Percent cell count reference ranges are not reported, since discordance with absolute values may lead to misinterpretation of CBC data. Current Interpretive Data was last revised on 2017. Blood 03/02/2024 12:2 0 PM CDT 03/02/2024 12:49 PM CDT us Merna Bell MD LAB BLOOD ORDERABLES Final Re sult [facility] Department of Laboratories [place], [place] [id number] * (ABNORMAL) CBC with auto differential (03/02/2024 12:20 PM CDT) WBC 7.8 3.8 - 9.9 K/cumm Hgb 10.7(L) 11.9 - 15.5 g/dL [facility] Hct 33.4(L) 35.6 - 45.5 % [facility] Plt 261 150 - 400 K/cumm [facility] MPV 10.7 9.1 - 12.3 fL [facility] RBC 3.81(L) 3.90 - 5.20 M/cumm [facility] MCV 87.7 81.3 - 96.4 fL [facility] MCH 28.1 27.1 - 33.3 pg [facility] MCHC 32.0(L) 32.3 - 35.7 g/dL [facility] RDW CV 13.1 11.1 - 14.9 % [facility] RDW SD 41.5 35.7 - 48.1 fL [facility] NRBC abs 0.00 0.00 - 0.01 K/cumm [facility] Blood 03/02/2024 12:2 0 PM CDT 03/02/2024 12:49 PM CDT Merna Bell MD LAB BLOOD ORDERABLES Final Re sult Performing Organization Address City/[facility] Co de Phone Number [facility] Department [place] [address] * (ABNORMAL) Iron profile w/ IBC (03/02/2024 12:20 PM CDT) [facility] Iron 31(L) 35 - 145 mcg/dL TIBC 237(L) 250 - 400 mcg/dL [facility] Transferrin saturation 13(L) 20 - 50 % [facility] Blood 03/02/2024 12:2 0 PM CDT 03/02/2024 12:49 PM CDT Merna Bell MD LAB BLOOD ORDERABLES Final Re sult Performing Organization Address City/[facility]/ZIP Co de Phone Number [facility] [place] [address] * Vitamin B12 (03/02/2024 12:20 PM CDT) [facility] Vitamin B12 281 230 - 1,250 pg/mL Blood 03/02/2024 12:2 0 PM CDT 03/02/2024 12:49 PM CDT Merna Bell MD LAB BLOOD ORDERABLES Final Re sult Performing Organization Address [facility]/ZIP Co de Phone Number [facility] [place] [address] * (ABNORMAL) Reticulocyte Count (03/02/2024 12:20 PM CDT) Retics, absolute 0.058 0.020 - 0.087 M/cumm Retics 1.5 0.4 - 2.9 % [facility] Reticulocyte Hgb 28.7(L) 30.5 - 38.0 pg [facility] Blood 03/02/2024 12:2 0 PM CDT 03/02/2024 12:49 PM CDT Merna Bell MD LAB BLOOD ORDERABLES Final Re sult Performing Organization Address [facility]/[place] [address] * (ABNORMAL) Renal function panel (03/02/2024 12:20 PM CDT) Sodium 143 135 - 145 mmol/L Potassium, pl 3.3 3.3 - 4.9 mmol/L [facility] Chloride 104 97 - 110 mmol/L [facility] CO2 23 22 - 32 mmol/L [facility] Anion gap 16(H) 2 - 15 mmol/L [facility] BUN 21 6 - 25 mg/dL [facility] Creatinine 1.26(H) 0.60 - 1.10 mg/dL [facility] Glucose 204(H) 70 - 199 mg/dL [facility] Comment: Interpretive Data Fasting glucose >/= 126 [...] classification and Diagnosis of Diabetes Diabetes Care 2021; 46: S19-S40. Current interpretive data was last revised 2022. Calcium 9.2 8.5 - 10.3 mg/dL [facility] Phosphorus, pl 4.3 2.3 - 4.5 mg/dL [facility] Albumin 3.8 3.5 - 5.0 g/dL [facility] Blood 03/02/2024 12:2 0 PM CDT 03/02/2024 12:49 PM CDT us Merna Bell MD LAB BLOOD ORDERABLES Final Re sult [facility] Department [place] [address] * (ABNORMAL) Pro B-type natriuretic peptide (03/02/2024 12:20 PM CDT) NT-proBNP 1,534(H) <=300 pg/mL Comment: Interpretive Comments: A. Dyspnea in Acute [...] 225. Interpretive Data Last Revised Date: 2017. Blood 03/02/2024 12:2 0 PM CDT 03/02/2024 12:49 PM CDT Merna Bell MD LAB BLOOD ORDERABLES Final Re sult Performing Organization Address [facility] de Phone Number [facility] [place] [address] * Thyroid Function [place] (03/02/2024 12:20 PM CDT) TSH 1.21 0.30 - 4.20 mcIUnit/mL Blood 03/02/2024 12:2 0 PM CDT 03/02/2024 12:49 PM CDT Merna Bell MD LAB BLOOD ORDERABLES Final Re sult Performing Organization Address [facility] de Phone Number [facility] Department [place] [address] * (ABNORMAL) Lipid panel (03/02/2024 12:20 PM CDT) Cholesterol 161 30 - 199 mg/dL Comment: Interpretive Data Ages < or = 19 years ??Acceptable: ? <170 mg/dL ??Borderline high: ??170-199 mg/dL ??High: ? >or= 200 mg/dL Ages > or = 20 years ??Desirable: ?<200 mg/dL ??Borderline high: ??200-239 mg/dL ??High: ? >or= 240 mg/dL Literature References: 1. Expert Panel on Integrated Guidelines for Cardiovascular Health and Risk Reduction in Children and Adolescents. Pediatrics 2011;128:S213 2. NCEP Expert Panel. Circulation 2004;110:227 Current Interpretive Data was last revised on 2017. Triglycerides 209(H) <=149 mg/dL [facility] Comment: Interpretive Data Ages < or = 9 years ??Acceptable: ? <75 mg/dL ??Borderline high: ??75-99 mg/dL ??High: ? >or= 100 mg/dL Ages 10 to 20 years ??Acceptable: ? <90 mg/dL ??Borderline high: ??90-129 mg/dL ??High: ? >or= 130 mg/dL Ages > or = 20 years ??Desirable: ?<150 mg/dL ??Borderline high: ??150-199 mg/dL ??High: ? 200-499 mg/dL ?Very high: ?? >or= 499 mg/dL Literature References: 1. Expert Panel on Integrated Guidelines for Cardiovascular Health and Risk Reduction in Children and Adolescents. Pediatrics 2011;128:S213 2. NCEP Expert Panel. Circulation 2004;110:227 Current Interpretive Data was last revised on 2017. HDL 45 >=40 mg/dL [facility] Comment: Interpretive Data Ages < or = 19 years ??Acceptable: ? >45 mg/dL ??Borderline low: ?? 40-45 mg/dL ??Low: ? <40 mg/dL Ages > or = 20 years ??Desirable: ?>or= 60 mg/dL ??Low: ? <40 mg/dL Literature References: 1. Expert Panel on Integrated Guidelines for Cardiovascular Health and Risk Reduction in Children and Adolescents. Pediatrics 2011;128:S213 2. NCEP Expert Panel. Circulation 2004;110:227 Current Interpretive Data was last revised on 2017. LDL, calculated 81 <=129 mg/dL [facility] Comment: Interpretive Data Ages < or = 19 years ??Acceptable: ? <110 mg/dL ??Borderline high: ??110-129 mg/dL ??High: ?>or= 130 mg/dL Ages > or = 20 years ??Optimal: ? <100 mg/dL ??Near optimal: ?100-129 mg/dL ??Borderline high: ?? 130-159 mg/dL ??High: ?>160 mg/dL Calculated using the Harshal LDL-C estimating equation. This equation was implemented on 2024. Prior to this date LDL-C was estimated using the Friedewald equation. Literature References: 1. Expert Panel on Integrated Guidelines for Cardiovascular Health and Risk Reduction in Children and Adolescents. Pediatrics 2011;128:S213 2. NCEP Expert Panel. Circulation 2004;110:227 3. Harshal Koehler et al. VIOLA Cardiol. 2020 September 10;5(5):540-548. doi: 10.1001/jamacardio.2020.0013 Current Interpretive Data was last revised on 2024. Non-HDL Cholesterol 116 mg/dL [facility] Comment: Interpretive Data Ages < or = 19 years ??Acceptable: ?<120 mg/dL ??Borderline high: ??120-144 mg/dL ??High: ?>145 mg/dL Ages > or = 20 years ??When triglycerides are >200 mg/dL, Non-HDL cholesterol is a secondary target of ? therapy with treatment goals that are 30 mg/dL greater than the LDL cholesterol target. ? Literature References: 1. Expert Panel on Integrated Guidelines for Cardiovascular Health and Risk Reduction in Children and Adolescents. Pediatrics 2011;128:S213 2. NCEP Expert Panel. Circulation 2004;110:227 Current Interpretive Data was last revised on 2017. 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
--- OUTSIDE RECORDS SUMMARY | 2024-04-29 14:04 | XMS_ITS | Encounter Summary ---
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 Gender Identity Female 05/13/2021 4:21 PM TUBULAR SPLITTING MACHINE TENDER Sexual Orientation Not on file documented as of this encounter Plan of Treatment Not on file documented as of this encounter Procedures Procedure Name Priority Date/Time Associated Diagnosis Comments EGFR Routine 01/29/2024 6:20 AM CDT DIFFERENTIAL AUTO Routine 01/29/2024 6:2 0 AM CDT CBC WITH AUTO DIFFERENTIAL Routine 01/29/2024 6:20 AM CDT CBC WITHOUT DIFFERENTIAL Routine 01/29/2024 6:20 AM CDT MAGNESIUM Routine 01/29/2024 6:20 AM CDT COMPREHENSIVE METABOLIC PANEL Routine 01/29/2024 6:20 AM CDT BASIC METABOLIC PANEL Routine 01/29/2024 6:20 AM CDT documented in this encounter Results * (ABNORMAL) eGFR (01/29/2024 6:20 AM CDT) eGFR 48(L) >=60 mL/min/1. 73 m2 [facility] Comment: Interpretive Data Reference Interval Normal ?>/= [...] of Race in Diagnosing Kidney Disease, JASN 202). The CKD-EPI equation should not be used for patients with unstable renal function and has not been validated in children and those over 70. Current interpretive data was last reviewed 2021. Testing performed by: [facility], [address] [place] [address], [place]., [address] Blood 01/29/2024 6:20 AM CDT 01/29/2024 8:23 AM CDT us Notinfile Unknown LAB BLOOD ORDERABLES Final Res ult J[facility] [address] [facility] [place] [address] * (ABNORMAL) Comprehensive metabolic panel (01/29/2024 6:20 AM CDT) Sodium 140 135 - 145 mmol/L JORGE Comment:Testing performed by : [address] [address] Potassium, pl 4.5 3.3 - 4.9 mmol/L JORGE Comment:Testing performed by : [address] [address] Chloride 105 97 - 110 mmol/L JORGE Comment:Testing performed by : [address] [address] CO2 20(L) 22 - 32 mmol/L JORGE Comment:Testing performed by : [address] [address] Anion gap 15 2 - 15 mmol/L JORGE Comment:Testing performed by : [address] [address] BUN 26(H) 6 - 25 mg/dL JORGE Comment:Testing performed by : [address] [address] Creatinine 1.20(H) 0.60 - 1.10 mg/dL JORGE Comment:Testing performed by : [address] [address] Glucose 75 70 - 199 mg/dL JORGE Comment: Interpretive [...] was last revised 2022. Testing performed by: [address] [address] Calcium 8.9 8.5 - 10.3 mg/dL JORGE Comment:Testing performed by : [address] [address] Bilirubin, total 0.4 0.1 - 1.2 mg/dL JORGE Comment:Testing performed by : [address] [address] Protein, pl 5.6(L) 6.5 - 8.5 g/dL JORGE Comment:Testing performed by : [address] [address] Albumin 3.0(L) 3.5 - 5.0 g/dL JORGE Comment:Testing performed by : [address] [address] Alk phos 99 40 - 130 Units/L JORGE Comment:Testing performed by : [address] [address] ALT 9 7 - 45 Units/L JORGE Comment:Testing performed by : [address] [address] AST 19 10 - 45 Units/L JORGE Comment:Testing performed by : [address] [address] Blood 01/29/2024 6:20 AM CDT 01/29/2024 8:23 AM CDT us Notinfile Unknown LAB BLOOD ORDERABLES Final Res ult [facility] [address] [facility] [place] [address] * (ABNORMAL) Basic metabolic panel (01/29/2024 6:20 AM CDT) Sodium 140 135 - 145 mmol/L [facility] Comment:Testing performed by : [facility], [address] [place] [address]., [address] Potassium, pl 4.5 3.3 - 4.9 mmol/L JORGE Comment:Testing performed by : [address], [place]., [address] Chloride 105 97 - 110 mmol/L JORGE Comment:Testing performed by : [address], [place]., [address] CO2 20(L) 22 - 32 mmol/L JORGE Comment:Testing performed by : [address], [place]., [address] Anion gap 15 2 - 15 mmol/L JORGE Comment:Testing performed by : [address] [address] BUN 26(H) 6 - 25 mg/dL JORGE Comment:Testing performed by : [address] [address] Creatinine 1.20(H) 0.60 - 1.10 mg/dL JORGE Comment:Testing performed by : [address], [place]., [address] Glucose 75 70 - 199 mg/dL [facility] Comment: Interpretive Data Fasting glucose >/= 126 [...] was last revised 2022. Testing performed by: [address] [address] Calcium 8.9 8.5 - 10.3 mg/dL JORGE Comment:Testing performed by : [address], [place]., [address] Blood 01/29/2024 6:20 AM CDT 01/29/2024 8:23 AM CDT us Notinfile Unknown LAB BLOOD ORDERABLES Final Res ult Performing Organization Address City/[facility]/ZIP Co de Phone Number JORGE [address] [place] [address] * Magnesium (01/29/2024 6:20 AM CDT) Magnesium 2.0 1.4 - 2.5 mg/dL JORGE Comment:Testing performed by : [address] [address] Blood 01/29/2024 6:20 AM CDT 01/29/2024 8:23 AM CDT us Notinfile Unknown LAB BLOOD ORDERABLES Final Res ult Performing Organization Address [facility] de Phone Number JORGE [facility] [place] [address] * Differential, auto (01/29/2024 6:20 AM CDT) Neutrophil abs 5.2 1.5 - 6.5 K/cumm JORGE Comment:Testing performed by : [address] [address] Imm gran abs 0.1 0.0 - 0.1 K/cumm JORGE Comment:Testing performed by : [address] [address] Lymphocyte abs 1.9 0.8 - 3.3 K/cumm JORGE Comment:Testing performed by : [address] [address] Monocyte abs 0.8 0.2 - 0.8 K/cumm JORGE Comment:Testing performed by : [address] [address] Eosinophil abs 0.2 0.0 - 0.5 K/cumm JORGE Comment:Testing performed by : [address] [address] Basophil abs 0.0 0.0 - 0.1 K/cumm JORGE Comment:Testing performed by : [address] [address] Neutrophil pct 63.2 % [facility] Comment: Interpretive Data Percent cell count reference ranges are not reported, since discordance with absolute values may lead to misinterpretation of CBC data. Current Interpretive Data was last revised on 2017. Testing performed by: [address] [address] Imm gran pct 1.2 % [facility] Comment: Interpretive Data Percent cell count reference ranges are not reported, since discordance with absolute values may lead to misinterpretation of CBC data. Current Interpretive Data was last revised on 2017. Testing performed by: [address] [address] Lymphocyte pct 23.4 % [facility] Comment: Interpretive Data Percent cell count reference ranges are not reported, since discordance with absolute values may lead to misinterpretation of CBC data. Current Interpretive Data was last revised on 2017. Testing performed by: [address] [address] Monocyte pct 9.4 % [facility] Comment: Interpretive Data Percent cell count reference ranges are not reported, since discordance with absolute values may lead to misinterpretation of CBC data. Current Interpretive Data was last revised on 2017. Testing performed by: [address] [address] Eosinophil pct 2.3 % [facility] Comment: Interpretive Data Percent cell count reference ranges are not reported, since discordance with absolute values may lead to misinterpretation of CBC data. Current Interpretive Data was last revised on 2017. Testing performed by: [address] [address] Basophil pct 0.5 % [facility] Comment: Interpretive Data Percent cell count reference ranges are not reported, since discordance with absolute values may lead to misinterpretation of CBC data. Current Interpretive Data was last revised on 2017. Testing performed by: [address] [address] Blood 01/29/2024 6:20 AM CDT 01/29/2024 8:23 AM CDT us Notinfile Unknown LAB BLOOD ORDERABLES Final Res ult [facility] [address] [facility] [place] [address] * (ABNORMAL) CBC with auto differential (01/29/2024 6:20 AM CDT) WBC 8.2 3.8 - 9.9 K/cumm [facility] Comment:Testing performed by : [address] [address] Hgb 8.5(L) 11.9 - 15.5 g/dL [facility] Comment:Testing performed by : [address] [address] Hct 26.5(L) 35.6 - 45.5 % JORGE Comment:Testing performed by : [address] [address] Plt 281 150 - 400 K/cumm JORGE Comment:Testing performed by : [address] [address] MPV 10.6 9.1 - 12.3 fL [facility] Comment:Testing performed by : [address] [address] RBC 2.86(L) 3.90 - 5.20 M/cumm [facility] Comment:Testing performed by : [address] [address] MCV 92.7 81.3 - 96.4 fL [facility] Comment:Testing performed by : [address] [address] MCH 29.7 27.1 - 33.3 pg [facility] Comment:Testing performed by : [address] [address] MCHC 32.1(L) 32.3 - 35.7 g/dL JORGE Comment:Testing performed by : [address] [address] RDW CV 14.1 11.1 - 14.9 % [facility] Comment:Testing performed by : [address] [address] RDW SD 46.3 35.7 - 48.1 fL [facility] Comment:Testing performed by : [address] [address] NRBC abs 0.00 0.00 - 0.01 K/cumm [facility] Comment:Testing performed by : [address] [address] Blood 01/29/2024 6:20 AM CDT 01/29/2024 8:23 AM CDT us Notinfile Unknown LAB BLOOD ORDERABLES Final Res ult J[facility] Department [place] [address] * (ABNORMAL) CBC without differential (01/29/2024 6:20 AM CDT) WBC 8.2 3.8 - 9.9 K/cumm [facility] Comment:Testing performed by : [address] [address] Hgb 8.5(L) 11.9 - 15.5 g/dL [facility] Comment:Testing performed by : [address] [address] Hct 26.5(L) 35.6 - 45.5 % [facility] Comment:Testing performed by : [address] [address] Plt 281 150 - 400 K/cumm [facility] Comment:Testing performed by : [address] [address] MPV 10.6 9.1 - 12.3 fL [facility] Comment:Testing performed by : [address] [address] RBC 2.86(L) 3.90 - 5.20 M/cumm [facility] Comment:Testing performed by : [address] [address] MCV 92.7 81.3 - 96.4 fL JORGE Comment:Testing performed by : [address] [address] MCH 29.7 27.1 - 33.3 pg [facility] Comment:Testing performed by : [address] [address] MCHC 32.1(L) 32.3 - 35.7 g/dL JORGE Comment:Testing performed by : [address], [address] RDW CV 14.1 11.1 - 14.9 % JORGE Comment:Testing performed by : [address], [address] RDW SD 46.3 35.7 - 48.1 fL JORGE Comment:Testing performed by : [address], [address] NRBC abs 0.00 0.00 - 0.01 K/cumm JORGE Comment:Testing performed by : [address], [address] Blood 01/29/2024 6:20 AM CDT 01/29/2024 8:23 AM CDT us Notinfile Unknown LAB BLOOD ORDERABLES Final Res ult JORGE [address] [facility] [place] [address] documented in this encounter Visit Diagnoses Not [...] is undergoing Ring Surveillance for admission to [facility]. CAP[facility] Tolbert [facility] 01/21/2024 01/21/2024 02/04/2024 3:05 AM C DT documented as of this encounter Care Teams Alarm Mechanism Adjuster Relationship Specialty Start Date End Date Elpidio Serrato MD PCP - General Internal Medicine 06/09/18 documented as of this encounter
--- OUTSIDE RECORDS SUMMARY | 2024-04-29 14:04 | XMS_ITS | Encounter Summary ---
Author Organization [facility] Address [address] [facility] [address] [place] [address] Phone Care Team Providers Care Furniture Upholsterer Apprentice Name Role Phone Elpidio Serrato MD Primary Care Provider Encounter Details Date Type Department Care Team (Late st Contact Info) Description 01/28/2024 Orders Only [facility] Surgery [address] [facility] Advanced Medicine 8th [place] [address] [place] [address] Stan Treviño MD [address] 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 Median sternotomy plates are aligned. ??Left atrial appendage clip is noted. Clear lungs. ??No pulmonary edema or focal consolidation. ??No pleural effusion or pneumothorax. ??Heart size and cardiomediastinal silhouette are unchanged. Electronically signed by: Ravi Flores M.D. Narrative 02/26/2024 11:44 AM CDT EXAMINATION: 2 view chest radiograph Procedure Note Ravi Flores MD - 02/26/2024 EXAMINATION: 2 view chest radiograph IMPRESSION: Comparison 01/25/2024. Median sternotomy plates are aligned. Left atrial appendage clip is noted. Clear lungs. No pulmonary edema or focal consolidation. No pleural effusion or pneumothorax. Heart size and cardiomediastinal silhouette are unchanged. Electronically signed by: Ravi Flores M.D. 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 CAPRI Tolbert [facility] 01/21/2024 01/21/2024 02/04/2024 3:05 AM C DT documented as of this encounter Care Teams Furniture Upholsterer Apprentice Relationship Specialty Start Date End Date Elpidio Serrato MD PCP - General Internal Medicine 06/09/18 documented as of this encounter
--- OUTSIDE RECORDS SUMMARY | 2024-04-29 14:04 | XMS_ITS | Encounter Summary ---
Author Organization [facility] Address [address] [place] [address] Phone Care Team Providers Care Fugitive Detective Name Role Phone Elpidio Serrato MD Primary Care Provider [phone] Encounter Details Date Type Department Care Team (Late st Contact Info) Description 04/21/2024 Telephone [facility] Cardiology [address] [facility] 8th [place] [address] [place] [phone] Rater, JAMES Dunlap [address] [facility] [address] [place] [address] Social History Tobacco Use Types Packs/Day Years [...] on file 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 Gender Identity Female 05/13/2021 4:21 PM ASSISTANT FLOOR 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 PRINTER Sexual Orientation Not on file documented as of this encounter Ordered Prescriptions Prescription Sig Dispense Quantity Refills Last Filled Start Date End Date clopidogreL (PLAVIX) 75 mg tablet Take 1 tablet (75 mg total) by mouth daily 90 tablet 3 04/21/2024 04/21/2025 documented in this encounter Miscellaneous Notes * Telephone Encounter - Karen Banda CMA - 04/21/2024 2:52 PM ASSISTANT FLOOR COVERING PRINTER Requested Prescriptions Signed Prescriptions Disp Refills clopidogreL (PLAVIX) 75 mg tablet 90 tablet 3 Sig: Take 1 tablet (75 mg total) by mouth daily Authorizing Provider: GAURAV ROBLERO Ordering User: KAREN BANDA Last provider visit: 02/14/2024 Next provider visit: 08/18/2024 Preferred pharmacy: [facility]/pharmacy #[id number] - [place], [place] - [address] [facility] [address] Was med refilled or sent back to Provider Pool for clarification? MED WAS REFILLED STANT FLOOR COVERING PRINTER * Telephone Encounter - Kalpana Sheth - 04/21/2024 12:14 PM CST Rater Pt needs a new prescription for plavix 75 mg. 90 day supply Pharmacy - [facility] at [address] STANT FLOOR COVERING PRINTER documented in this encounter Plan of Treatment Not on file documented as of this encounter Visit Diagnoses Not on filedocumented in this encounter Discontinued Medications Medication Sig Discontinue Reason Start Date End Da te clopidogreL (PLAVIX) 75 mg tablet Take 1 tablet (75 mg total) by mouth daily Reorder 01/29/2024 04/21/2024 documented as of this encounter Care Teams Fugitive Detective Relationship Specialty Start Date End Date Elpidio Serrato MD PCP - General Internal Medicine 06/09/18 documented as of this encounter
--- OUTSIDE RECORDS SUMMARY | 2024-04-29 14:04 | XMS_ITS | Encounter Summary ---
Author Organization [facility] Address [address] [facility] [address] [place] [address] Phone Care Team Providers Care Distillery Supervisor Name Role Phone Elpidio Serrato MD Primary Care Provider [phone] Encounter Details Date Type Department Care Team (Latest Contact Info) Description 02/26/2024 12:00 PM CDT Office Visit [facility] Cardiothoracic Surgery [address] [facility] 8th Floor [address] Room [address] [address] Columba Leslie NP [address] [facility] [id number] [place] [address] Coronary artery disease involving [place] heart, unspecified vessel or lesion type, unspecified [...] on file Legal Sex Female 3:59 AM SWITCHMAN Gender Identity Female 05/13/2021 4:21 PM SWITCHMAN Sexual Orientation Not on file documented as of this encounter Last Filed Vital Signs Vital Sign Reading Time Taken Comments Blood Pressure 123/72 02/26/2024 12:10 PM CDT Pulse 90 02/26/2024 12:10 PM CDT Temperature - - Respiratory Rate - - Oxygen Saturation 100% 02/26/2024 12:10 PM CDT Inhaled Oxygen Concentration - - Weight 85.9 kg (189 lb 6.4 oz) 02/26/2024 12:10 PM CDT Height 149.9 cm (4' 11 ) 02/26/2024 12:10 PM CDT Body Mass Index 38.25 02/26/2024 12:10 PM CDT documented in this encounter Progress Notes * Columba Leslie, ASSOCIATE PROFESSOR OF LIBRARY MEDIA - 02/26/2024 12:00 PM CDT Cardiac-Thoracic Surgery Patient Name: Isabelle Lutz : 1950 Referred by: Elpidio Serrato MD Date of Visit: 02/26/2024 Chief Complaint: No chief complaint on file. HPI: Isabelle Lutz is a 73 y.o. female with past medical history of HTN, HLD, CAD, mild MR, anemia, CKD, DM type II ( Hgb A1c 5.9), hypothyroidism, and chronic knee pain. He was found to have multivessel diease on [facility] and was evaluated for CABG. Ms. Isabelle Lutz was taken to the operating room on 01/20/2024 for CABG x3 with OROZCO to LAD, SVG to OM, SVG to PDA by Dr. Treviño. When hemodynamically stable, she was weaned from ventilatory and inotropic support. She developed atrial fibrillation in the post operative period which was treated with amiodarone. She remained in normal sinus rhythm. Chest tubes were discontinued without difficulty.The patient progressed as expected. Aggressive physical therapy and pulmonary toilet were initiated, diet was advanced as tolerated, and wounds remained clean, dry and intact. Her pacing wires were cut at the skin and she was deemed stable to transfer to the Rehab facility ([facility]) for continued gait and strength training. Today in the office Ms. Lutz states she has been feeling well. She continues to work with PT and OT for strength training, but is home now. She does still also note some shortness of breath at timeswith long distances. She denies chest pain, lower extremity edema, orthopnea, PND, dizziness, or palpitations. All other review of systems are negative. Allergies as of 02/26/2024 - Reviewed 02/16/2024 Allergen Reaction Noted Pseudoephedrine Palpitations Valacyclovir Other (See comments) 08/12/2018 Current Outpatient Medications: acetaminophen ER (TYLENOL) 650 mg 8 hr tablet, Take 1 tablet (650 mg total) by mouth every 6 (six) hours as needed for pain, Disp: , Rfl: aspirin 81 mg enteric coated tablet, Take 1 tablet (81 mg total) by mouth every morning, Disp: , Rfl: atorvastatin (LIPITOR) 40 mg tablet, Take 1 tablet (40 mg total) by mouth daily (Patient taking differently: Take 1 tablet (40 mg total) by mouth every morning), Disp: 90 tablet, Rfl: 3 blood glucose diagnostic (glucose blood) strip, Testing once daily, Disp: 100 each, Rfl: 2 brimonidine-timoloL (Combigan) 0.2-0.5 % ophthalmic solution, Administer 1 drop into the left eye 2(two) times a day (Patient taking differently: Administer 1 drop into the left eye 2 (two) times a day), Disp: 15 mL, Rfl: 3 calcium carbonate (TUMS) 500 mg (200 mg elemental calcium) chewable tablet, Take 1 tablet/chew tab (500 mg total) by mouth daily (Patient taking differently: Take 1 tablet/chew tab (500 mg total) by mouth every morning), Disp: 90 tablet/chew tab, Rfl: 3 clopidogreL (PLAVIX) 75 mg tablet, Take 1 tablet (75 mg total) by mouth daily, Disp: , Rfl: empagliflozin (Jardiance) 10 mg tablet, Take 1 tablet (10 mg total) by mouth daily, Disp: 90 tablet, Rfl: 3 ergocalciferol (VITAMIN D) 50,000 unit capsule, TAKE 1 CAPSULE BY MOUTH ONCE WEEKLY (Patient takingdifferently: Take 1 capsule (50,000 Units total) by mouth once a week Saturday), Disp: 12 capsule,Rfl: 1 furosemide (LASIX) 20 mg tablet, Take 0.5 tablets (10 mg total) by mouth every morning, Disp: , Rfl: insulin glargine (LANTUS) 100 unit/mL (3 mL) pen for injection, Inject 20 Units under the skin daily before breakfast (Patient taking differently: Inject 17 Units under the skin nightly), Disp: , Rfl: insulin lispro (HumaLOG) 100 unit/mL pen for injection, Inject 6 Units under the skin 3 (three) times a day with meals (plus blood glucose mg/dL 150-199: 1 unit, 200-249: 2 units, 250-299: 3 units, 300-349: 4 units, 350 or greater: 5 units. Notify provider for blood glucose greater than 299 mg/dL. Max daily dose 40) Refer to After Visit Summary for Sliding Scale Insulin Instructions. (Patient nottaking: Reported on 02/14/2024), Disp: 15 mL, Rfl: 0 latanoprost (XALATAN) 0.005 % ophthalmic solution, INSTILL 1 DROP INTO BOTH EYES NIGHTLY (Patient taking differently: Administer 1 drop into both eyes nightly), Disp: 7.5 mL, Rfl: 3 levothyroxine (SYNTHROID) 88 mcg tablet, TAKE 1 TABLET BY MOUTH EVERY DAY (Patient taking differently: Take 1 tablet (88 mcg total) by mouth every morning), Disp: 90 tablet, Rfl: 3 metoprolol XL (TOPROL-XL) 25 mg extended release tablet, Take 0.5 tablets (12.5 mg total) by mouth daily Hold for SBP < 100 or HR < 60, Disp: , Rfl: oxyCODONE (ROXICODONE) 5 mg immediate release tablet, Take 1 tablet (5 mg total) by mouth every 4 (four) hours as needed for pain, Disp: , Rfl: pen needle, diabetic (BD Ultra-Fine Hailee Pen Needle) 32 gauge x 5/32 needle, Use 4X daily, Disp: 300 each, Rfl: 3 pen needle, diabetic (Pen Needle) 32 gauge x 5/32 needle, Use as directed once a day., Disp: 100 each, Rfl: 0 pen needle, diabetic 32 gauge x 5/32 needle, Use as directed 3 times a day., Disp: 100 each, Rfl: 0 pen needle, diabetic 32 gauge x 5/32 needle, Use as directed 3 times a day., Disp: 100 each, Rfl: 0 semaglutide (OZEMPIC) 2 mg/dose (8 mg/3 mL) pen injector injection, Inject 2 mg under the skin oncea week, Disp: 9 mL, Rfl: 3 senna 8.6 mg tablet, Take 1 tablet by mouth 2 (two) times a day, Disp: , Rfl: Past Medical History: Diagnosis Date Actinic keratosis 07/17/2012 Age-related osteoporosis without current pathological fracture 04/29/2023 Cataract CHF (congestive heart failure) ([facility]) ([facility]) Clavicle enlargement 06/16/2018 Will image to determine etiology. Coronary artery disease Coronary artery disease due to calcified coronary lesion 01/20/2024 Diabetes mellitus ([facility]) Diabetic neuropathy ([facility]) 01/21/2024 Diabetic retinopathy ([facility]) Glaucoma Hypertension Hypothyroidism 11/13/2014 Knee pain 01/04/2015 Leucocytosis 01/22/2024 Multiparity History Of ___ Previous Pregnancies - 7 pregnancies, 2 children - C-sections. (Added by TW Conv) Nonproliferative diabetic retinopathy ([facility]) 11/03/2009 Osteoarthritis of knee 12/16/2007 Personal history of other specified conditions History of chest pain - Stress test negative on 08/01/06 (Added by TW Conv) Primary open angle glaucoma (POAG) of both eyes, moderate stage 06/11/2018 Pseudophakia of both eyes 06/11/2018 Thyroid disease Trigger finger of left thumb 12/09/2017 Type 2 diabetes mellitus with hyperlipidemia ([facility]) 12/07/2016 Last A1C 5.9%, without complication Vitamin D deficiency 04/01/2019 Past Surgical History: Procedure Laterality Date CATARACT EXTRACTION Right 06/14/2022 CE/IOL + goniotomy WA APPENDECTOMY unkown dates per pt WA DELIVERY ONLY Section - in 1972 and 1975 (Added by TW Conv) WA TENDON SHEATH INCISION Hand Incision Tendon Sheath Of A Finger - right hand, III finger, 08/20 (Added by TW Conv) Family History Problem Relation Age of Onset Anesthesia problems Mother coded during unknown dental procedure but lived Heart attack Mother Blood Clot Sister Heart disease Other Heart Disease - mother (Added by TW Conv) Hypertension Other Hypertension - mother (Added by TW Conv) Thyroid disease Other Thyroid Disorder - mother (Added by TW Conv) Diabetes type II Other Type II Diabetes Mellitus - mother (Added by TW Conv) Malig Hyperthermia Neg Hx Pseudochol deficiency Neg Hx Social History Tobacco Use Smoking status: Never Smokeless tobacco: Never Substance and Sexual Activity Drug use: Never Sexual activity: Defer Alcohol Use: Not At Risk (01/20/2024) AUDIT-C Frequency of Alcohol Consumption: Never Average Number of Drinks: Patient does not drink Frequency of Binge Drinking: Never Objective: Vitals BP 123/72 Pulse 90 Ht 149.9 cm (4' 11 ) Wt 85.9 kg (189 lb 6.4 oz) SpO2 100% BMI 38.25 kg/m?? Physical Exam: Isabelle Lutz is a well-appearing female in no acute distress today. HEENT: normocephalic, atraumatic. Neck: supple. Trachea: midline. Sternum: stable to deep respiration and cough. Incisions are well healed without redness warmth, or drainage. Lungs: clear to auscultation bilaterally. Cardiovascular: S1S2 RRR. Abdomen: soft and non tender. Bowel sounds present x 4. Extremities: warm and well perfused. no edema noted. Neuro: alert and oriented x 4. Imagin02/26/24: CXR IMPRESSION: Comparison 01/25/2024. Median sternotomy plates are aligned. Left atrial appendage clip is noted. Clear lungs. No pulmonary edema or focal consolidation. No pleural effusion or pneumothorax. Heart size and cardiomediastinal silhouette are unchanged. Plan: Ms. Isabelle Lutz continues to do well following her recent coronary artery bypass surgery with . She continues to increase her activity working with PT and OT and is tolerating this well. We discussed postoperative restrictions of no lifting greater than 10-20lbs for the next 6 weeks. Weelected to make no medication changes today. She will continue to follow up with her PCP Dr. Serrato, cardiology Fabi Rater ASSOCIATE PROFESSOR OF LIBRARY MEDIA, and our office as needed. Thank you for allowing us to participate in the care of this very pleasant patient. Please feel free to contact our office at [phone] with any questions or concerns regarding her care. Columba Leslie, MSN, EXECUTIVE DIRECTOR OF MARKETING-BC [facility] Division of Cardiothoracic Surgery documented in this encounter Plan of Treatment Not on file documented as of this encounter Visit Diagnoses Diagnosis Coronary artery disease involving [place] heart, unspecified vessel or lesion type, unspecified whether angina present- Primary documented in this encounter Care Teams Distillery Supervisor Relationship Specialty Start Date End Date Elpidio Serrato MD PCP - General Internal Medicine 06/09/18 documented as of this encounter
--- OUTSIDE RECORDS SUMMARY | 2024-04-29 14:04 | XMS_ITS | Encounter Summary ---
Author Organization [facility] Healthcare Address [address] [place] [address] Care Team Providers Care Computer Network And Systems Engineer Name Role Phone Elpidio Serrato MD Primary Care Provider [phone] Encounter Details Date Type Department Care Team (Latest Contact Info) Description 02/26/2024 11:36 AM CDT - 02/26/2024 11:59 PM CDT Hospital Encounter [facility] [address] [place] [id number] Coronary artery disease involving [place] heart, unspecified vessel or lesion type, unspecified whether angina present Discharge Disposition: Discharge to home or self care Social History Tobacco Use Types Packs/Day Years [...] on file Legal Sex Female 3:59 AM LIGHT ARMORED VEHICLE OFFICER Gender Identity Female 05/13/2021 4:21 PM LIGHT ARMORED VEHICLE OFFICER Sexual Orientation Not on file documented as of this encounter Medications at Time of Discharge acetaminophen ER (TYLENOL) 650 mg 8 hr tabletIndications:Watson n Take 1 tablet (650 mg total) by mouth every 6 (six) hours as needed for pain aspirin 81 mg enteric coated tabletIndications:pre vention of thrombosis Take 1 tablet (81 mg total) by mouth every morning atorvastatin (LIPITOR) 40 mg tablet Take 1 tablet (40 mg total) by mouth daily 90 tablet 3 4 10/29/19 25 blood glucose diagnostic (glucose blood) strip Testing once daily 100 each 2 9 brimonidine-timoloL (Combigan) 0.2-0.5 % ophthalmic solutionIndications:P rimary open angle glaucoma (POAG) of both eyes, moderate stage Administer 1 drop into the left eye 2 (two) times a day 15 mL 3 3 calcium carbonate (TUMS) 500 mg (200 mg elemental calcium) chewable tablet Take 1 tablet/chew tab (500 mg total) by mouth daily 90 tablet/chew tab 3 4 11/17/19 25 empagliflozin (Jardiance) 10 mg tabletIndications:Typ e 2 diabetes mellitus (HCC) Take 1 tablet (10 mg total) by mouth daily 90 tablet 3 4 furosemide (LASIX) 20 mg tabletIndications:noe er retention Take 0.5 tablets (10 mg total) by mouth every morning insulin glargine (LANTUS) 100 unit/mL (3 mL) pen for injection Inject 20 Units under the skin daily before breakfast 4 insulin lispro (HumaLOG) 100 unit/mL pen for injection Inject 6 Units under the skin 3 (three) times a day with meals (plus blood glucose mg/dL 150-199: 1 unit, 200-249: 2 units, 250-299: 3 units, 300-349: 4 units, 350 or greater: 5 units. Notify provider for blood glucose greater than 299 mg/dL. Max daily dose 40) Refer to After Visit Summary for Sliding Scale Insulin Instructions. 15 mL 4 latanoprost (XALATAN) 0.005 % ophthalmic solutionIndications:P rimary open angle glaucoma (POAG) of both eyes, moderate stage INSTILL 1 DROP INTO BOTH EYES NIGHTLY 7.5 mL 3 4 oxyCODONE (ROXICODONE) 5 mg immediate release tabletIndications:Watson n Take 1 tablet (5 mg total) by mouth every 4 (four) hours as needed for pain 4 pen needle, diabetic (BD Ultra-Fine Hailee Pen Needle) 32 gauge x 5/32 needleIndications: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, with long-term current use of insulin, unspecified laterality (HCC) Use 4X daily 300 each 3 3 pen needle, diabetic (Pen Needle) 32 gauge x 5/32 needle Use as directed once a day. 100 each 4 pen needle, diabetic 32 gauge x 5/32 needle Use as directed 3 times a day. 100 each 4 pen needle, diabetic 32 gauge x 5/32 needle Use as directed 3 times a day. 100 each 4 senna 8.6 mg tablet Take 1 tablet by mouth 2 (two) times a day 4 clopidogreL (PLAVIX) 75 mg tablet Take 1 tablet (75 mg total) by mouth daily 4 04/21/20 24 ergocalciferol (VITAMIN D) 50,000 unit capsule TAKE 1 CAPSULE BY MOUTH ONCE WEEKLY 12 capsule 1 4 03/30/20 24 levothyroxine (SYNTHROID) 88 mcg tablet TAKE 1 TABLET BY MOUTH EVERY DAY 90 tablet 3 3 04/07/20 24 metoprolol XL (TOPROL-XL) 25 mg extended release tablet Take 0.5 tablets (12.5 mg total) by mouth daily Hold for SBP < 100 or HR < 60 4 03/03/20 24 semaglutide (OZEMPIC) 2 mg/dose (8 mg/3 mL) pen injector injection Inject 2 mg under the skin once a week 9 mL 3 4 03/30/20 24 documented as of this encounter Discharge Disposition Disposition Code Departure Means Destination Discharge to home or self care documented in this encounter Plan of Treatment Not on file documented as of this encounter Procedures Procedure Name Priority Date/Time Associated Diagnosis Comments XR CHEST PA LATERAL 2 VIEWS Schedule Routine, Read Routine (OP Routine) 02/26/2024 11:42 AM CDT Coronary artery disease involving [place] heart, unspecified vessel or lesion type, unspecified whether angina present documented in this encounter Results * XR Chest Pa [...] Visit Diagnoses Diagnosis Coronary artery disease involving [place] heart, unspecified vessel or lesion type, unspecified whether angina present documented in this encounter Care Teams Computer Network And Systems Engineer Relationship Specialty Start Date End Date Elpidio Serrato MD PCP - General Internal Medicine 06/09/18 documented as of this encounter
--- OUTSIDE RECORDS SUMMARY | 2024-04-29 14:04 | XMS_ITS | Encounter Summary ---
Author Organization [facility] Address [address] [place] [address] Phone Care Team Providers Care Medical Anthropologist Name Role Phone Elpidio Serrato MD Primary Care Provider [phone] Encounter Details Date Type Department Care Team (Late st Contact Info) Description 02/19/2024 Telephone [facility] Cardiology [address] [facility] 8th [place] [address] [place] [id number] Rater, JAMES Dunlap [address] [facility] [address] [place] [address] Social History Tobacco Use Types Packs/Day Years [...] on file Legal Sex Female 3:59 AM PIT OPERATOR Gender Identity Female 05/13/2021 4:21 PM PIT OPERATOR Sexual Orientation Not on file documented as of this encounter Miscellaneous Notes * Telephone Encounter - Yumiko Alejo RN - 02/20/2024 10:05 AM CDT Returned call to pt - she went to ER a few nights ago for swelling in 1 foot; they dx her with osteoarthritis and sent her home with RX for Prednisone which she did not take. She ended up going back to ER last night and was dx with cellulitis; given abx in ER and sent home with 6 day RX. Pt reportsswelling is already starting to improve. Pt had no additional concerns at the moment * Telephone Encounter - Ingrid Roper - 02/19/2024 2:35 PM CDT Rater Patient calling and states that she clare tto the ER today due to a swollen foot. Resulted in being osteoarthritis and she has some questions regarding the medication they want her to take? documented in this encounter Plan of Treatment Not on file documented as of this encounter Visit Diagnoses Not on filedocumented in this encounter Care Teams Medical Anthropologist Relationship Specialty Start Date End Date Elpidio Serrato MD PCP - General Internal Medicine 06/09/18 documented as of this encounter
--- OUTSIDE RECORDS SUMMARY | 2024-04-29 14:04 | XMS_ITS | Encounter Summary ---
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 73 m2 [facility] Comment: [...] was last reviewed 2021. Testing performed by: [facility], [address] [place] [address], [place]., [address] Blood 02/03/2024 6:01 AM CDT 02/03/2024 8:28 AM CDT us Notinfile Unknown LAB BLOOD ORDERABLES Final Res ult [facility] Department [place] [address] * (ABNORMAL) Basic metabolic panel (02/03/2024 6:01 AM CDT) [facility] Signature Sodium 140 135 - 145 mmol/L JORGE Comment:Testing performed by : [address], [place]., [address] Potassium, pl 4.4 3.3 - 4.9 mmol/L JORGE Comment:Testing performed by : [address], [place]., [address] Chloride 104 97 - 110 mmol/L JORGE Comment:Testing performed by : [address], [place]., [address] CO2 22 22 - 32 mmol/L JORGE Comment:Testing performed by : [address], [place]., [address] Anion gap 14 2 - 15 mmol/L JORGE Comment:Testing performed by : [address] [address] BUN 23 6 - 25 mg/dL JORGE Comment:Testing performed by : [address], [place]., [address] Creatinine 1.40(H) 0.60 - 1.10 mg/dL JORGE Comment:Testing performed by : [address], [place]., [address] Glucose 111 70 - 199 mg/dL JORGE Comment: Interpretive [...] was last revised 2022. Testing performed by: [address], [place]., [address] Calcium 9.3 8.5 - 10.3 mg/dL JORGE Comment:Testing performed by : [address] [address] Blood 02/03/2024 6:01 AM CDT 02/03/2024 8:28 AM CDT us Notinfile Unknown LAB BLOOD ORDERABLES Final Res ult J[facility] [address] [facility] Department [place] [address] * Differential, auto (02/03/2024 6:01 AM CDT) Neutrophil abs 5.6 1.5 - 6.5 K/cumm JORGE Comment:Testing performed by : [address] [address] Imm gran abs 0.1 0.0 - 0.1 K/cumm JORGE Comment:Testing performed by : [address] [address] Lymphocyte abs 2.8 0.8 - 3.3 K/cumm JORGE Comment:Testing performed by : [address] [address] Monocyte abs 0.7 0.2 - 0.8 K/cumm JORGE Comment:Testing performed by : [address] [address] Eosinophil abs 0.2 0.0 - 0.5 K/cumm JORGE Comment:Testing performed by : [address] [address] Basophil abs 0.1 0.0 - 0.1 K/cumm JORGE Comment:Testing performed by : [address] [address] Neutrophil pct 60.0 % JORGE Comment: Interpretive Data Percent cell count reference ranges are not reported, since discordance with absolute values may lead to misinterpretation of CBC data. Current Interpretive Data was last revised on 2017. Testing performed by: [address] [address] Imm gran pct 0.9 % [facility] Comment: Interpretive Data Percent cell count reference ranges are not reported, since discordance with absolute values may lead to misinterpretation of CBC data. Current Interpretive Data was last revised on 2017. Testing performed by: [address] [address] Lymphocyte pct 29.4 % [facility] Comment: Interpretive Data Percent cell count reference ranges are not reported, since discordance with absolute values may lead to misinterpretation of CBC data. Current Interpretive Data was last revised on 2017. Testing performed by: [address] [address] Monocyte pct 7.2 % [facility] Comment: Interpretive Data Percent cell count reference ranges are not reported, since discordance with absolute values may lead to misinterpretation of CBC data. Current Interpretive Data was last revised on 2017. Testing performed by: [address] [address] Eosinophil pct 1.9 % [facility] Comment: Interpretive Data Percent cell count reference ranges are not reported, since discordance with absolute values may lead to misinterpretation of CBC data. Current Interpretive Data was last revised on 2017. Testing performed by: [address] [address] Basophil pct 0.6 % [facility] Comment: Interpretive Data Percent cell count reference ranges are not reported, since discordance with absolute values may lead to misinterpretation of CBC data. Current Interpretive Data was last revised on 2017. Testing performed by: [address] [address] Blood 02/03/2024 6:01 AM CDT 02/03/2024 8:28 AM CDT us Notinfile Unknown LAB BLOOD ORDERABLES Final Res ult [facility] [address] [facility] Department [place] [address] * (ABNORMAL) CBC with auto differential (02/03/2024 6:01 AM CDT) WBC 9.3 3.8 - 9.9 K/cumm JORGE Comment:Testing performed by : [address] [address] Hgb 9.5(L) 11.9 - 15.5 g/dL JORGE Comment:Testing performed by : [address] [address] Hct 29.9(L) 35.6 - 45.5 % JORGE Comment:Testing performed by : [address] [address] Plt 426(H) 150 - 400 K/cumm JORGE Comment:Testing performed by : [address] [address] MPV 10.5 9.1 - 12.3 fL JORGE Comment:Testing performed by : [address] [address] RBC 3.20(L) 3.90 - 5.20 M/cumm JORGE Comment:Testing performed by : [address] [address] MCV 93.4 81.3 - 96.4 fL JORGE Comment:Testing performed by : [address] [address] MCH 29.7 27.1 - 33.3 pg JORGE Comment:Testing performed by : [address] [address] MCHC 31.8(L) 32.3 - 35.7 g/dL JORGE Comment:Testing performed by : [address] [address] RDW CV 14.5 11.1 - 14.9 % JORGE Comment:Testing performed by : [address] [address] RDW SD 49.1(H) 35.7 - 48.1 fL JORGE Comment:Testing performed by : [address] [address] NRBC abs 0.00 0.00 - 0.01 K/cumm JORGE Comment:Testing performed by : [facility] [address] [place] [address], [place]., [address] Blood 02/03/2024 6:01 AM CDT 02/03/2024 8:28 AM CDT us Notinfile Unknown LAB BLOOD ORDERABLES Final Res ult [facility] [address] [facility] Department [place] [address] documented in this encounter Visit Diagnoses Not [...] is undergoing Ring Surveillance for admission to 7300. CAPRI Tolbert [facility] 01/21/2024 01/21/2024 02/04/2024 3:05 AM C DT documented as of this encounter Care Teams Supervisor Inventory Merchandising Relationship Specialty Start Date End Date Elpidio Serrato MD PCP - General Internal Medicine 06/09/18 documented as of this encounter
--- OUTSIDE RECORDS SUMMARY | 2024-04-29 14:04 | XMS_ITS | Encounter Summary ---
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 73 m2 [facility] Comment: [...] was last reviewed 2021. Testing performed by: [facility], [address] [place] [address]., [address] Blood 02/01/2024 4:35 AM CDT 02/01/2024 8:14 AM CDT us Notinfile Unknown LAB BLOOD ORDERABLES Final Res ult [facility] [address] [facility] Department [place] [address] * (ABNORMAL) Basic metabolic panel (02/01/2024 4:35 AM CDT) Sodium 140 135 - 145 mmol/L JORGE Comment:Testing performed by : [address] [address] Potassium, pl 4.7 3.3 - 4.9 mmol/L JORGE Comment:Testing performed by : [address], [place]., [address] Chloride 106 97 - 110 mmol/L JORGE Comment:Testing performed by : [address], [place]., [address] CO2 22 22 - 32 mmol/L JORGE Comment:Testing performed by : [address] [address] Anion gap 12 2 - 15 mmol/L JORGE Comment:Testing performed by : [address], [place]., [address] BUN 27(H) 6 - 25 mg/dL JORGE Comment:Testing performed by : [address] [address] Creatinine 1.70(H) 0.60 - 1.10 mg/dL JORGE Comment:Testing performed by : [address] [address] Glucose 132 70 - 199 mg/dL JORGE Comment: Interpretive [...] was last revised 2022. Testing performed by: [address] [address] Calcium 8.8 8.5 - 10.3 mg/dL JORGE Comment:Testing performed by : [address] [address] Blood 02/01/2024 4:35 AM CDT 02/01/2024 8:13 AM CDT us Notinfile Unknown LAB BLOOD ORDERABLES Final Res ult Performing Organization Address [facility] Co de Phone Number [id number] [address] * Magnesium (02/01/2024 4:35 AM CDT) Magnesium 1.9 1.4 - 2.5 mg/dL JORGE Comment:Testing performed by : [facility], [address] [place] [address]., [address] Blood 02/01/2024 4:35 AM CDT 02/01/2024 8:13 AM CDT us Notinfile Unknown LAB BLOOD ORDERABLES Final Res ult Performing Organization Address [facility] de Phone Number [id number] [address] documented in this encounter Visit Diagnoses Not [...] Surveillance for admission to 73. CAPRI Tolbert [facility] 01/21/2024 01/21/2024 02/04/2024 3:05 AM C DT documented as of this encounter Care Teams Hangar Attendant Relationship Specialty Start Date End Date Elpidio Serrato MD PCP - General Internal Medicine 06/09/18 documented as of this encounter
--- OUTSIDE RECORDS SUMMARY | 2024-04-29 14:04 | XMS_ITS | Encounter Summary ---
Author Organization [facility] Address [address] [place] [address] Phone Care Team Providers Care Wireless Operator Name Role Phone Elpidio Serrato MD Primary Care Provider [phone] Encounter Details Date Type Department Care Team (Late st Contact Info) Description 02/14/2024 11:30 AM CDT Office Visit [facility] Cardiology [address] [facility] 8th [place] [address] [place] [id number] Rater, JAMES Dunlap [address] [facility] [address] [place] [address] Dyspnea on exertion (Primary Dx); Congestive heart failure, unspecified HF chronicity, unspecified heart failure type (HCC); CAD, multiple vessel; AF (paroxysmal atrial fibrillation) (CMS/HCC) (HCC) Social History Tobacco Use Types Packs/Day Years [...] on file 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 Gender Identity Female 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 Sexual Orientation Not on file documented as of this encounter Last Filed Vital Signs Vital Sign Reading Time Taken Comments Blood Pressure 93/47 02/14/2024 11:13 AM CDT Pulse 80 02/14/2024 11:13 AM CDT Temperature - - Respiratory Rate - - Oxygen Saturation 99% 02/14/2024 11:13 AM CDT Inhaled Oxygen Concentration - - Weight 87.6 kg (193 lb 3.2 oz) 02/14/2024 11:13 AM CDT Height 149.9 cm (4' 11 ) 02/14/2024 11:13 AM CDT Body Mass Index 39.02 02/14/2024 11:13 AM CDT documented in this encounter Patient Instructions * Patient Instructions* Gaurav Collier NP - 02/14/2024 11:30 AM CDT Cardiac Rehab, we will order at [facility]. You can start after you see Columba and PT says it is OK Please call for any questions [phone] Goal Blood Pressure is 130/80 or less, call if systolic BP less than 90 and I will reduce your lasix to every other day dosing documented in this encounter Progress Notes * Gaurav Collier NP - 02/14/2024 11:30 AM CDT Patient Name: Isabelle Dominguez VS: Provider: Gaurav Collier NP : 1950 Date of Service: 02/14/2024 Referring: Ama PAST MEDICAL HISTORY: Coronary artery disease s/p CABG x3, TONY clipping, post- operative atrial fibrillation, type 2 diabetes mellitus, chronic kidney disease, glaucoma, obesity, hypertension, osteoarthritis, hypothyroidism HISTORY OF PRESENT ILLNESS/INTERVAL HISTORY: I saw her as a new patient in October and she was complaining of dyspnea on exertion. She had a stresstest that was positive for myocardial ischemia with hypokinesis of anterior wall and inferior wall and marked hypo/akinesis of the inferolateral wall with associated throat fullness. She underwent left heart catheterization and then eventual bypass surgery on 01/19. She had some postoperative atrial fibrillation but otherwise has recovered well. She went to a rehab facility before discharge to home. She is living with her son. She is gradually gaining strength and feeling better. She will be starting home PT and OT at the end of February. REVIEW OF SYSTEMS: She denies syncope, LOIS or palpitations. She has shortness breath with exertion. She complains of numbness to 2 fingers on her left hand and pain to her left upper extremity since her surgery. She will be having a nerve conduction study this month. All other systems negative MEDICATIONS: Outpatient Encounter Medications as of 02/14/2024 Medication Sig Dispense Refill acetaminophen ER (TYLENOL) 650 mg 8 hr tablet Take 1 tablet (650 mg total) by mouth every 6 (six) hours as needed for pain aspirin 81 mg enteric coated tablet Take 1 tablet (81 mg total) by mouth every morning atorvastatin (LIPITOR) 40 mg tablet Take 1 tablet (40 mg total) by mouth daily (Patient taking differently: Take 1 tablet (40 mg total) by mouth every morning) 90 tablet 3 brimonidine-timoloL (Combigan) 0.2-0.5 % ophthalmic solution Administer 1 drop into the left eye 2 (two) times a day (Patient taking differently: Administer 1 drop into the left eye 2 (two) times a day) 15 mL 3 calcium carbonate (TUMS) 500 mg (200 mg elemental calcium) chewable tablet Take 1 tablet/chew tab (500 mg total) by mouth daily (Patient taking differently: Take 1 tablet/chew tab (500 mg total) by mouth every morning) 90 tablet/chew tab 3 clopidogreL (PLAVIX) 75 mg tablet Take 1 tablet (75 mg total) by mouth daily empagliflozin (Jardiance) 10 mg tablet Take 1 tablet (10 mg total) by mouth daily 90 tablet 3 ergocalciferol (VITAMIN D) 50,000 unit capsule TAKE 1 CAPSULE BY MOUTH ONCE WEEKLY (Patient taking differently: Take 1 capsule (50,000 Units total) by mouth once a week Saturday) 12 capsule 1 furosemide (LASIX) 20 mg tablet Take 0.5 tablets (10 mg total) by mouth every morning insulin glargine (LANTUS) 100 unit/mL (3 mL) pen for injection Inject 20 Units under the skin dailybefore breakfast (Patient taking differently: Inject 17 Units under the skin nightly) latanoprost (XALATAN) 0.005 % ophthalmic solution INSTILL 1 DROP INTO BOTH EYES NIGHTLY (Patient taking differently: Administer 1 drop into both eyes nightly) 7.5 mL 3 levothyroxine (SYNTHROID) 88 mcg tablet TAKE 1 TABLET BY MOUTH EVERY DAY (Patient taking differently: Take 1 tablet (88 mcg total) by mouth every morning) 90 tablet 3 metoprolol XL (TOPROL-XL) 25 mg extended release tablet Take 0.5 tablets (12.5 mg total) by mouth daily Hold for SBP < 100 or HR < 60 oxyCODONE (ROXICODONE) 5 mg immediate release tablet Take 1 tablet (5 mg total) by mouth every 4 (four) hours as needed for pain semaglutide (OZEMPIC) 2 mg/dose (8 mg/3 mL) pen injector injection Inject 2 mg under the skin once a week 9 mL 3 senna 8.6 mg tablet Take 1 tablet by mouth 2 (two) times a day blood glucose diagnostic (glucose blood) strip Testing once daily 100 each 2 insulin lispro (HumaLOG) 100 unit/mL pen for [...] Summary for Sliding Scale Insulin Instructions. (Patient not taking: Reported on 02/14/2024) 15 mL 0 pen needle, diabetic (BD Ultra-Fine Hailee Pen Needle) 32 gauge x 5/32 needle Use 4X daily 300 each 3 pen needle, diabetic (Pen Needle) 32 gauge x 5/32 needle Use as directed once a day. 100 each 0 pen needle, diabetic 32 gauge x 5/32 needle Use as directed 3 times a day. 100 each 0 pen needle, diabetic 32 gauge x 5/32 needle Use as directed 3 times a day. 100 each 0 [DISCONTINUED] amiodarone (PACERONE) 200 mg tablet Take 1 tablet (200 mg total) by mouth 2 (two) times a day for 6 doses [DISCONTINUED] amiodarone (PACERONE) 200 mg tablet Take 1 tablet (200 mg total) by mouth daily for 3 days [DISCONTINUED] amiodarone (PACERONE) 400 mg tablet Take 1 tablet (400 mg total) by mouth 2 (two) times a day for 6 doses [DISCONTINUED] docusate sodium (COLACE) 100 mg capsule Take 1 capsule (100 mg total) by mouth 2 (two) times a day as needed for constipation [DISCONTINUED] metFORMIN (GLUCOPHAGE) 500 mg tablet Take 1 tablet (500 mg total) by mouth daily (Patient not taking: Reported on 02/14/2024) 90 tablet 3 No facility-administered encounter medications on file as of 02/14/2024. Result Text Patient name: Isabelle Lutz Date of test: 11/15/2023 Hospital #: [id number] Location: [facility] Interpreted by: Vandana Isaacs MD Armature And Rotor Winder: Olimpia Brandon RDCS RN: Shelby Jacobo RN Reason for Test: Dyspnea Study quality: Technically good Referring Physician: GAURAV COLLIER MD Contrast Agent: 3.0 ml Optison Administered BASELINE STUDY: Wall Motion Scoring (1=Normal 2=Hypo 3=Akinetic 4=Dyskin./Aneurysm 0=Not visualized) Parasternal Long [place]:MAS=1 BAS=1 MIL=2 ROBERT=2 Parasternal Short [place]:MAS=1 MIS=1 FL=1 MIL=2 MAL=1 MA=1 Apical 4 Chambers:=1 MIS=1 BIS=3 BAL=1 MAL=1 AL=1 AC=3 Apical 2 Chambers:AI=1 FL=1 BI=3 BA=1 MA=1 AA=2 AC=3 Ejection Fraction: 45-50% LV Global Function: Mild segmental left ventricular dysfunction. MWA: Akinesis of the LV apex, basal inferior/inferoseptal wall and hypokinesis of the apical anterior wall and inferolateral wall. Baseline Echo Comments: TDS with poor endocardial border visualization. Mild LAE. Normal LV cavity size with mild segmental LV dysfunction. WMA as above. Mild RVE with normal RVSF. Aortic sclerosis. Aortic root normal in size. IVC is small and collapses which supports decreased venous pressures. Abd Ao and aortic arch not well visualized. Doppler/CF Comments: No /No AR; No MS/ mild MR; No TR; No UT. Diastolic Function: Grade I (impaired relaxation) with nl est filling pressures.Unable to estimate PASP d/t inadequate TR jet. Baseline HR: 77 Baseline BP: 115/57 Conduction Defects: RBBB + LAFB Resting ECG Comments: Oriana Jensen Medications: Lasix, Aspirin, Lipitor, evothyroxine, Metformin, Insulin Meds held: none POST DOBUTAMINE STUDY: Wall Motion Scoring (1=Normal 2=Hypo 3=Akinetic 4=Dyskin./Aneurysm 0=Not visualized) Parasternal [place]:MAS=1 BAS=1 MIL=3 ROBERT=3 Parasternal [place]:MAS=1 MIS=1 FL=1 MIL=3 MAL=1 MA=1 Apical 4 Chambers:=1 MIS=1 BIS=1 BAL=1 MAL=1 AL=1 AC=2 Apical 2 Chambers:AI=1 FL=1 BI=3 BA=1 MA=1 AA=1 AC=2 Intravenous dobutamine was infused to a maximal dose 30 micro-g/Kg/min. Atropine: 0 mg. Other Med: Peak HR: 131 Peak BP: 110/46 Post-Exercise Comments: Marked increase in the LV and RV contractility, no NEW segmental wall motion abnormalities at peak stress; however in recovery (2 to 6min) pt with hypokinesis of anterior wall and inferior wall and marked hypo/akinesis of the inferolaterall with associated throat fullness. Basal inferior wall remains akinetic c/w infarction. Test terminated: Target heart rate achieved Stress ECG Comments: ECG changes doesn't meet criteria for ischemia, rare PVC's CONTRAST ENHANCEMENT WAS EMPLOYED after initial imaging due to sub-optimal quality related to co-morbidity defined by patient's body habitus. Impression: TDS. Maximal Dobutamine Stress Echocardiogram ( MPHR), POSITIVE for myocardial ischemia with hypokinesis of anterior wall and inferior wall and marked hypo/akinesis of the inferolateral wall with associated throat fullness. Basal inferior wall remains akinetic c/w infarction. Pt's throat fullness resolved with SLNTGx1 and resolution of WMA. Concern for multivessel disease and ischemia at rest. Above d/w Dr. Tammy Alfaro. Revised on 11/15/2023 - 13:54:34 by Vandana Isaacs MD Left heart catheterization November 2023 Hemodynamics: Systemic aortic blood pressure was 125/80. Left ventricular blood pressure was 125/20. There was no gradient on pull back across the aortic valve Coronary Arteriography: Left main coronary: Diffuse 30-40% disease in the distal left main, heavily calcified Left anterior descending: Moderate-sized vessel which travels to the apex and supplies 3 diagonal branches(diagonal 1 and 3 are moderate size diagonal 2 is relatively small). Proximal segment there is a diffuse 40% to 50% stenosis, heavily calcified. In the mid apical segment there is a severe 70 80% focal heavily calcified stenosis. The apical LAD has mild diffuse disease Left circumflex: Large vessel which supplies 3 major OM branches. In the proximal segment there is a severe 80% heavily calcified stenosis Right coronary artery: Right dominant system. Occluded in the proximal segment with [id number] septal collaterals from the LAD COMPLICATIONS: None. DIAGNOSTIC IMPRESSION: Severe multivessel coronary disease with chronic total occlusion of a large RCA, severe heavily calcified disease in the proximal circumflex, diffuse heavily calcified disease in the proximal LAD with a severe lesion in the mid to apical LAD Elevated left ventricular end diastolic blood pressure.. PHYSICAL EXAM: BP 93/47 (BP Location: Left arm, Patient Position: Sitting) Pulse 80 Ht 149.9 cm (4' 11 ) Wt87.6 kg (193 lb 3.2 oz) SpO2 99% BMI 39.02 kg/m?? General: Well appearing, No pain or distress, well nourished HEENT: Within normal limits Neck: Supple, No carotid bruits, no JVD Respiratory: Clear to ausculation bilaterally; no wheezing/rales/rhonchi; respirations unlabored, Cardiovascular: RRR, normal S1 and S2. No S3 or S4. No murmurs or rubs, sternal incision is healingwell Gastrointestinal: soft, non-tender abdomen, no masses palpable Extremities: Warm and dry without edema Psychiatric: normal affect Neurologic: awake/alert, no focal deficits ASSESSMENT & PLAN: Coronary artery disease s/p CABG x3 (skeletonized left JAIMEE to the LAD, saphenous vein graft to the obtuse marginal, saphenous vein graft to the PDA) on 01/20/2024. She also had Left atrial appendage clip ligation and sternal plating. She was discharged to a rehab facility but is now home. She is recovering slowly. I recommend cardiac rehab. We will order this and she can start it after she is cleared at her surgical visit. She is on an aspirin and a statin. Postoperative atrial fibrillation. She is in sinus rhythm today by exam. She is no longer on amiodarone. She was discharged from the hospital on this so it must have been stopped when she was in rehab I would like her to stay on her low- dose metoprolol. She does have relatively low blood pressure should let our office know if her SBP runs under 90 consistently. If that is the case I will reduce her Lasix from daily to every other day. Type 2 diabetes mellitus Obesity I would like her to come back in 6 months to establish with a general scuba diver. She would like to be seen at the [facility]. Gaurav Collier, Cardiology Nurse Practitioner documented in this encounter Plan of Treatment Not on file documented as of this encounter Visit Diagnoses Diagnosis Dyspnea on exertion- Primary Other dyspnea and respiratory abnormality Congestive heart failure, unspecified HF chronicity, unspecified heart failure type (HCC) CAD, multiple vessel AF (paroxysmal atrial fibrillation) (CMS/HCC) (HCC) Atrial fibrillation documented in this encounter Discontinued Medications Medication Sig Discontinue Reason Start Date End Da te amiodarone (PACERONE) 200 mg tablet Take 1 tablet (200 mg total) by mouth daily for 3 days Alternate therapy 02/03/2024 02/14/2024 amiodarone (PACERONE) 400 mg tablet Take 1 tablet (400 mg total) by mouth 2 (two) times a day for 6 doses Alternate therapy 01/28/2024 02/14/2024 amiodarone (PACERONE) 200 mg tablet Take 1 tablet (200 mg total) by mouth 2 (two) times a day for 6 doses Alternate therapy 01/31/2024 02/14/2024 docusate sodium (COLACE) 100 mg capsuleIndications:co nstipation Take 1 capsule (100 mg total) by mouth 2 (two) times a day as needed for constipation Alternate therapy 01/28/2024 02/14/2024 metFORMIN (GLUCOPHAGE) 500 mg tabletIndications:Typ e 2 diabetes mellitus (HCC) Take 1 tablet (500 mg total) by mouth daily Alternate therapy 12/03/2022 02/14/2024 documented as of this encounter Historical Medications * This list may reflect changes made after this encounter. senna 8.6 mg tablet Take 1 tablet by mouth 2 (two) times a day 02/05/2024 added in this encounter Care Teams Wireless Operator Relationship Specialty Start Date End Date Elpidio Serrato MD PCP - General Internal Medicine 06/09/18 documented as of this encounter
--- OUTSIDE RECORDS SUMMARY | 2024-04-29 14:04 | XMS_ITS | Referral Summary ---
Author Organization [facility] Address [address] [place] [address] Care Team Providers Care Leather Carver Name Role Phone Elpidio Serrato MD Primary Care Provider [phone] Encounters Date Type Department Care Team Description 04/21/2024 Telephone [facility] [address] [place] [address] [place] [id number] Fabi Collier NP 03/30/2024 10:30 AM CLOTH TESTER Office Visit [facility] [address] [place] [address] [place] [phone] Lia Mariano NP Type 2 diabetes mellitus with stage 3a chronic kidney disease, with long-term current use of insulin (HCC) (Primary Dx); Hypothyroidism, unspecified type; Anemia, unspecified type; Age-related osteoporosis without current pathological fracture 03/02/2024 3:15 PM CDT Lab [facility] ([facility]) [address] [place] [id number] Mixed hyperlipidemia; 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; Heart failure, unspecified HF chronicity, unspecified heart failure type (HCC); Type 2 diabetes mellitus with hyperlipidemia (HCC); Iron deficiency anemia, unspecified iron deficiency anemia type 03/02/2024 11:40 AM CDT Office Visit [facility] [address] [facility] [address] [place] [address] [place] [phone] Merna Bell MD Type 2 diabetes mellitus with hyperlipidemia (HCC) (Primary Dx); Iron deficiency anemia, unspecified iron deficiency anemia type; Heart failure, unspecified HF chronicity, unspecified heart failure type (HCC); 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; Mixed hyperlipidemia; Vitamin B12 deficiency 02/26/2024 11:36 AM CDT - 02/26/2024 11:59 PM CDT Hospital Encounter [facility] [address] [place] [id number] Coronary artery disease involving emmonak heart, unspecified vessel or lesion type, unspecified whether angina present Discharge Disposition: Discharge to home or self care 02/26/2024 12:00 PM CDT Office Visit [facility] [address] [place] [address] [address] Room [address] [place] [phone] Columba Leslie NP Coronary artery disease involving emmonak heart, unspecified vessel or lesion type, unspecified whether angina present (Primary Dx) 02/24/2024 Orders Only [facility] [address] [place] [address] [address] [place] [address] [place] [address] Fabi Collier NP CAD, multiple vessel (Primary Dx); Congestive heart failure, unspecified HF chronicity, unspecified heart failure type (HCC); ROSE (dyspnea on exertion); Abnormal stress echocardiogram; Hx of CABG 02/19/2024 Telephone [facility] [address] [place] [address] [address] [place] [address] [place] [address] Fabi Collier NP 02/14/2024 Telephone [facility] [address] [place] [address] [address] [place] [address] [place] [address] Martha Boyer RMA PO (Solara) 02/14/2024 11:30 AM CDT Office Visit [facility] [address] [place] [address] [address] [place] [address] [place] [address] Fabi Collier NP Dyspnea on exertion (Primary Dx); Congestive heart failure, unspecified HF chronicity, unspecified heart failure type ([facility]); CAD, multiple vessel; AF (paroxysmal atrial fibrillation) ([facility]/HCC) ([facility]) 02/05/2024 Orders Only [facility] [phone] Unknown, Notinfile 02/03/2024 Orders Only [facility] [phone] Unknown, Notinfile 02/02/2024 Orders Only [facility] [phone] Unknown, Notinfile 02/01/2024 Orders Only [facility] [phone] Unknown, Notinfile 01/31/2024 Orders Only [facility] [phone] Unknown, Notinfile 01/29/2024 Orders Only [facility] [phone] Unknown, Notinfile from Last 3 Months Allergies Active Allergy Reactions Criticality Noted Date Comments Pseudoephedrine Palpitations Low Valacyclovir Other (See comments) Low 08/12/2018 put me in renal failure Medications blood glucose diagnostic (glucose blood) strip Testing once daily 100 each 2 019 Active aspirin 81 mg enteric coated tabletIndications: prevention of thrombosis Take 1 tablet (81 mg total) by mouth every morning Active acetaminophen ER (TYLENOL) 650 mg 8 hr tabletIndications: Pain Take 1 tablet (650 mg total) by mouth every 6 (six) hours as needed for pain Active pen needle, diabetic (BD Ultra-Fine Hailee Pen Needle) 32 gauge x 5/32 needleIndications: 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, with long-term current use of insulin, unspecified laterality ([facility]) Use 4X daily 300 each 3 023 Active brimonidine-timolo L (Combigan) 0.2-0.5 % ophthalmic solutionIndication s:Primary open angle glaucoma (POAG) of both eyes, moderate stage Administer 1 drop into the left eye 2 (two) times a day 15 mL 3 023 Active Additional Information Patient taking differently:1 drop left eye 2 times daily,Indications: open angle glaucoma, Informant: Self, Reported on 01/17/2024 atorvastatin (LIPITOR) 40 mg tablet Take 1 tablet (40 mg total) by mouth daily 90 tablet 3 2024 Active Additional Information Patient taking differently:40 mg oralEvery morning, Indications: hyperlipidemia, Informant: Self, Reported on 01/17/2024 latanoprost (XALATAN) 0.005 % ophthalmic solutionIndication s:Primary open angle glaucoma (POAG) of both eyes, moderate stage INSTILL 1 DROP INTO BOTH EYES NIGHTLY 7.5 mL 3 Active Additional Information Patient taking differently: 1 drop each eye Nightly, Indications: open angle glaucoma, Informant: Self, Reported on 01/17/2024 calcium carbonate (TUMS) 500 mg (200 mg elemental calcium) chewable tablet Take 1 tablet/chew tab (500 mg total) by mouth daily 90 tablet/danna w tab 3 2024 Active Additional Information Patient taking differently:500 mg oralEvery morning, Indications: Hypocalcemia Prevention, Informant: Self, Reported on 01/17/2024 furosemide (LASIX) 20 mg tabletIndications: water retention Take 0.5 tablets (10 mg total) by mouth every morning Active empagliflozin (Jardiance) 10 mg tabletIndications: Type 2 diabetes mellitus (HCC) Take 1 tablet (10 mg total) by mouth daily 90 tablet 3 Active oxyCODONE (ROXICODONE) 5 mg immediate release tabletIndications: Pain Take 1 tablet (5 mg total) by mouth every 4 (four) hours as needed for pain Active insulin glargine (LANTUS) 100 unit/mL (3 mL) pen for injection Inject 20 Units under the skin daily before breakfast Active Additional Information Patient taking differently: 17 UnitssubcutaneousNightly, Reported on 02/14/2024 pen needle, diabetic (Pen Needle) 32 gauge x 5/32 needle Use as directed once a day. 100 each Active pen needle, diabetic 32 gauge x 5/32 needle Use as directed 3 times a day. 100 each Active insulin lispro (HumaLOG) 100 unit/mL pen for [...] for Sliding Scale Insulin Instructions. 15 mL Active pen needle, diabetic 32 gauge x needle Use as directed 3 times a day. 100 each Active senna 8.6 mg tablet Take 1 tablet by mouth 2 (two) times a day Active cyanocobalamin, vitamin B-12, (Vitamin B-12) 5,000 mcg tablet, sublingualIndicati ons:Vitamin B12 deficiency Place 5,000 mcg under the tongue daily 90 tablet 3 024 2024 Active metoprolol XL (TOPROL-XL) 25 mg extended release tablet Take 0.5 tablets (12.5 mg total) by mouth daily Hold for SBP < 100 or HR < 60 45 tablet 3 Active ergocalciferol (VITAMIN D) 50,000 unit capsule TAKE 1 CAPSULE BY MOUTH ONCE WEEKLY 12 capsule 1 Active semaglutide (OZEMPIC) 2 mg/dose (8 mg/3 mL) pen injector injection Inject 2 mg under the skin once a week 9 mL 3 Active levothyroxine (SYNTHROID) 88 mcg tablet TAKE 1 TABLET BY MOUTH EVERY DAY 90 tablet 3 Active clopidogreL (PLAVIX) 75 mg tablet Take 1 tablet (75 mg total) by mouth daily 90 tablet 3 024 2024 Active levothyroxine (SYNTHROID) 88 mcg tablet TAKE 1 TABLET BY MOUTH EVERY DAY 90 tablet 3 023 2023 Discontinued clopidogreL (PLAVIX) 75 mg tablet Take 1 tablet (75 mg total) by mouth daily 024 2023 Discontinued(R eorder) Active Problems Problem Noted Date Diagnosed Date Anemia 2024 AF (paroxysmal atrial fibrillation) (CMS/HCC) Assessment & Plan (01/27/2024 1:07 PM CDT): Short episode of AF with RVR 01/24 - converted with 1 amio bolus and then placed on drip at 1 mg DCd amio gtt and started po amiod load Qtc today 491 Today NSR 83 Cont tele No need for anticoagulation unless recurrent and sustained. ABLA (acute blood loss anemia) 01/22/2024 Assessment & Plan (01/25/2024 12:45 PM CDT): As expected post op- H/H stable - daily CBC - consider blood transfusion if hgb <7 and hemodynamically unstable Diabetic neuropathy 01/21/2024 Overview (01/21/2024): Sensation to low-amplitude, low frequency (128 Hz) vibration is absent over the distal foot and toes. Coronary artery disease due to calcified coronar y lesion 01/20/2024 CAD, multiple vessel 01/20/2024 Coronary artery disease 12/18/2023 Assessment & Plan (01/27/2024 1:07 PM CDT): - s/p CABG x3 (OROZCO to LAD, vein to OM, mariano to PDA), TONY clip, sternal plating by Dr. Treviño. - ASA, plavix, statin, Metop - Aggressive pulmonary toilet, acapella, IS, OOBC - continue bowel regimen - EPW + cut at discharge - monitor on telemetry - PT/OT - daily CBC, BMP- - titrate metoprolol as tolerated - lasix 20 daily for diuresis (on 10 mg at home) PW- will insulate- plan to cut at dc Coronary artery disease involving emmonak heart 0 12/12/2023 Encounter for preprocedural cardiovascular exami [facility] [place] 12/12/2023 ROSE (dyspnea on exertion) 11/19/2023 Stable angina 11/16/2023 Hyperphosphatemia 11/15/2023 Overview (11/15/2023): Last phos 4.5 Assessment & Plan (11/15/2023 4:00 PM CDT): Indicated for phosphate binders - Tums Abnormal stress echocardiogram 11/15/2023 Congestive heart failure (CMS/HCC) 11/12/2023 Overview (11/15/2023): HFmrEF, last EF per TTE 45%, hypervolemic on exam today. Assessment & Plan (11/15/2023 4:24 PM CDT): - Jardiance relative contraindication given advanced CKD - BP well controlled on current tx - Lasix for diuresis - GDMT uptitration post PCI Age-related osteoporosis wit hout current pathological fracture 04/29/2023 Chronic kidney disease (CKD) stage G3b/A1, moderately decreased glomerular filtration rate (GFR) between 30-44 mL/min/1.73 square meter and albuminuria creatinine ratio less than 30 mg/g 12/25/2021 Overview (11/15/2023): Chronic, stable Assessment & Plan (11/15/2023 4:02 PM CDT): - Tums for phosphate binding - Monitor fluid balance - Control BG - HITESH tx to be considered Assessment & Plan (12/25/2021 2:08 PM CDT): Pt is showing progressive loss of kidney function. She is on the kidney protective medications. I will recheck kidney function with next labs. Vitamin D deficiency 04/01/2019 Assessment & Plan (10/31/2020 1:45 PM CDT): Recheck vitamin D with next labs; continue weekly D2. Assessment & Plan (06/13/2020 1:43 PM CLOTH TESTER): Check 25OHD, especially if considering therapy for osteoporosis. Assessment & Plan (02/08/2020 3:28 PM CDT): Consider bone DXA with next visit in person, if possible. Assessment & Plan (08/24/2019 10:11 AM CDT): Continue vitamin D supplementation, may be important if you encounter COVID-19. Stay home but get some sun when it comes out. Assessment & Plan (04/01/2019 11:31 AM CLOTH TESTER): Levels normal 06/2018. Continue weekly ergocalciferol Clavicle enlargement 06/16/2018 Overview (06/16/2018): Will image to determine etiology. Assessment & Plan (06/16/2018 9:20 PM CLOTH TESTER): X-ray shows osteoarthritis with osteophytes. Odd, but does not need follow-up. Primary open angle glaucoma (POAG) of both eyes, moderate stage 06/11/2018 Assessment & Plan (07/15/2023 8:54 AM CLOTH TESTER): Doing well without concerns IOP at goal Continue current drops Follow 6 months with HVf/OCT OU Assessment & Plan (02/11/2023 10:01 AM CDT): POAG OU - OCT OU improved today - HVF OU stable from prior - add combigan BID OU for ease to remember - continue latanoprost QHS OU - follow 6 months with DFE, sooner for concerns Assessment & Plan (10/05/2022 8:03 AM CDT): POW6 from phaco/KDB OS Patient has recovered well from cataract surgery and is satisfied with visual outcome. And is using readers for near. For POAG will check HVF/OCT in 4 mos Assessment & Plan (08/24/2022 10:32 AM CDT): POW1 Extraction Cataract - Phacoemulsification And Lens Implant - Left and Goniotomy - Left Postoperative instructions were given. The patient is to use: Taper PF 3-2-1 D/C Moxi Signs, symptoms of retinal detachment, tear, hole, and endophthalmitis and hypotony were reviewed and the patient is to call immediately for concerns. They can resume normal activity. We discussed that things should improve until they stabilize. Should there be any worsening of pain, vision, or redness the patient is to call. Assessment & Plan (08/17/2022 8:25 AM CDT): POD1 Extraction Cataract - Phacoemulsification And Lens Implant - Left and Goniotomy - Left Postoperative instructions were given. The patient is to use: ofloxacin QID X 1 week Prednisolone Acetate 1% QID Patient is to wear the shield at bedtime X 1 week. Signs, symptoms of retinal detachment, tear, hole, and endophthalmitis were reviewed and the patient is to call immediately for concerns. We discussed that things should improve until they stabilize. Should there be any worsening of pain, vision, or redness the patient is to call. Followup 1 week or sooner for concerns. Assessment & Plan (06/22/2022 7:41 AM CLOTH TESTER): POW1 EXTRACTION CATARACT - PHACOEMULSIFICATION AND LENS IMPLANT - right eye - Right and GONIOTOMY - right eye - Right Postoperative instructions were given. The patient is to use: Taper PF 3-2-1 D/C Moxi IOP 24 - restart combigan BID OU, latanoprost qHS OU Signs, symptoms of retinal detachment, tear, hole, and endophthalmitis and hypotony were reviewed and the patient is to call immediately for concerns. They can resume normal activity. We discussed that things should improve until they stabilize. Should there be any worsening of pain, vision, or redness the patient is to call. Follow for surgery OS Assessment & Plan (06/15/2022 8:25 AM CLOTH TESTER): POD1 EXTRACTION CATARACT - PHACOEMULSIFICATION AND LENS IMPLANT - right eye - Right and GONIOTOMY - right eye - Right Postoperative instructions were given. The patient is to use: ofloxacin QID X 1 week Prednisolone Acetate 1% QID Continue Latan QHS OU Combigan BID OS Patient is to wear the shield at bedtime X 1 week. Signs, symptoms of retinal detachment, tear, hole, and endophthalmitis were reviewed and the patient is to call immediately for concerns. We discussed that things should improve until they stabilize. Should there be any worsening of pain, vision, or redness the patient is to call. Followup 1 week or sooner for concerns. Assessment & Plan (06/04/2022 2:51 PM CLOTH TESTER): Progression of field - plan for goniotomy at time of surgery Continue drops at this time Assessment & Plan (05/19/2021 4:27 PM CLOTH TESTER): POAG OU Mild HVF with progression of superior field IOP remains at goal Plan for goniotomy at the time of surgery Assessment & Plan (10/24/2020 8:29 AM CDT): Moderate S/p SLT OD IOP again borderline today Goal under 21, 23 OU today Continue 3 classes, plan for CEIOL/MIGS when visually significant Follow 6 months with IOL Master and HVF OU Assessment & Plan (04/25/2020 8:08 AM CLOTH TESTER): POAG, former Dr. Thomas patient Mild OU IOP uncontrolled on 3 classes (combigan and lumigan) HVF stable last visit OCT stable, possible thinning OD but appears to be artifact S/p SLT OD She notes she did not use her drops last visit, so here for repeat check Given stable testing, ok for IOP to be around 21 IOP today 18/18 - at goal Follow 6 months with DFE OU, testing thereafter Assessment & Plan (01/25/2020 8:46 AM CDT): POAG, former Dr. Thomas patient Mild OU IOP uncontrolled on 3 classes (combigan and lumigan) - did not take combigan this AM HVF today stable OCT stable, possible thinning OD but appears to be artifact S/p SLT OD She notes she did not use her drops this AM, wants to check IOP using drops Follow 3 months - given testing stable, ok to be around 21 Assessment & Plan (12/05/2019 7:46 PM CDT): IOPs > target for the visual field (VF); incomplete IA right eye (OD), and paracentral superior scotoma OS-status post (s/p) SLT right eye (OD) 06/2019. Refer to Glaucoma clinic for evaluation - yt may also be a good MIGS candidate. CPM. F/u Glc 2 weeks. Assessment & Plan (07/03/2019 9:12 AM CLOTH TESTER): Patient returns S/P SLT OD -05/28/2019 -IOP Today by Ta 13 by tonopen. -A1C was around 7% at last visit on March 31. RTC 5 months for intraocular pressure (IOP) by applanation and HANS Drops: Combigan BID OU Latanoprost QHS OD Assessment & Plan (04/23/2019 10:48 AM CLOTH TESTER): Patient returns for 6 months follow-up with dilation, vann, and OCT photo. intraocular pressures both eyes today are lower(22/25), but still above goal. The vann are stable compared to May 2018, but worse than 3 years ago. Believe pressures need to be in mid-teens. Recommend SLT both eyes, starting with right eye. Okay to wait until May. A1C was around 7% at last visit on March 31. RTC for next available SLT right eye. Drops: Combigan BID OU Latanoprost QHS OD Assessment & Plan (10/17/2018 1:27 PM CDT): Dr. Sue patient returning to me today for 6 week IOP check. Pressures are much better after adding Timolol QAM OU. CPM. Not clear if this is good enough in the long run. Drops: - Latanoprost QHS OU - Timolol QAM OU I am scribing in the presence of Dr. Thomas on 10/17/2018, HALLEY Ramos. I have examined the patient and agree with the resident/fellow's findings and plan as documented. Niranjan Thomas MD Pseudophakia of both eyes 06/11/2018 Assessment & Plan (07/15/2023 8:54 AM CLOTH TESTER): Lenses doing well Assessment & Plan (06/22/2022 7:41 AM CLOTH TESTER): The patient understands the risks, benefits, alternatives and wishes to proceed with cataract surgery. We discussed the target and the patient elects target plano. We discussed toric and multifocal lens options as well as laser assisted wounds however I prefer a manual technique here. The patient understands glasses are a possibility and is comfortable proceeding with a monofocal lens. Discussed risk of bleeding, infection, need for another surgery and rarely vision loss. Flomax: no Dilation: 8mm Need for perioperative steroids: no Book Phaco/IOL/goniotomy left eye. Assessment & Plan (06/04/2022 2:52 PM CLOTH TESTER): NS OU The patient understands the risks, benefits, alternatives and wishes to proceed with cataract surgery. We discussed the target and the patient elects target plano. We discussed toric and multifocal lens options as well as laser assisted wounds however I prefer a manual technique here. The patient understands glasses are a possibility and is comfortable proceeding with a monofocal lens. Discussed risk of bleeding, infection, need for another surgery and rarely vision loss. Flomax: no Dilation: 8mm Need for perioperative steroids: no Book Phaco/IOL/goniotomy right eye. Assessment & Plan (05/19/2021 4:27 PM CLOTH TESTER): Now becoming VS Plan for CEIOL\goniotomy in the Spring The patient understands the risks, benefits, alternatives and wishes to proceed with cataract surgery. We discussed the target and the patient elects target plano. We discussed toric and multifocal lens options as well as laser assisted wounds however I prefer a manual technique here. The patient understands glasses are a possibility and is comfortable proceeding with a monofocal lens. Discussed risk of bleeding, infection, need for another surgery and rarely vision loss. Flomax: no Dilation: 8mm Need for perioperative steroids: no Book Phaco/IOL/gonitomy right eye. Assessment & Plan (10/24/2020 8:29 AM CDT): Becoming VS at this time BAT 20/30 and 20/40 Follow 6 months with IOL Master Assessment & Plan (04/16/2020 8:17 AM CLOTH TESTER): Nearing visual significance May need CEIOL/MIGS soon, but monitor for now Assessment & Plan (01/25/2020 8:46 AM CDT): Nearing visual significance May need CEIOL/MIGS soon, but monitor for now Assessment & Plan (12/05/2019 7:42 PM CDT): Pt ed. Defer cataract extraction (CE) until signs/sx indicate. Assessment & Plan (07/03/2019 9:13 AM CLOTH TESTER): NVS. Continue to Monitor. I am scribing in the presence of Dr. Thomas on 07/03/2019, Sandy Aguirre OSC. I have examined the patient and agree with the resident/fellow's findings and plan as documented. Niranjan Thomas MD Assessment & Plan (04/23/2019 10:45 AM CLOTH TESTER): HALLEY Joseph scribing for and in the presence of Niranjan Thomas MD Assessment & Plan (10/15/2018 1:02 PM CDT): Not visually significant. Do not recommend surgery at this time. Continue to monitor. Benign essential hypertension 02/10/2018 DM2 (diabetes mellitus, type 2) 12/07/2016 Overview (11/15/2023): Last A1C 5.9%, without complication Assessment & Plan (01/27/2024 1:10 PM CDT): - Hemoglobin A1c 5.9 % on admission - consistent carb diet - continue basal bolus SSI with post prandial coverage Endocrine following. Continues to have labile BS- again dropped to 73, have adjusted insulins Holding her discharge to [facility] today due to hypoglycemic episodes, plan for d/c tomorrow if bed available Assessment & Plan (11/15/2023 4:24 PM CDT): - Lispro TID meals - SSI - Lantus - Atorvastatin - Consider HITESH when cardiorenal picture is more clear - Holding metformin and GLP1 inpatient - Jardiance Assessment & Plan (12/25/2021 2:04 PM CDT): Glucose control appears to be excellent. The biggest concern is lows at night. I suggest skipping the metformin in the evening. If lows persist, then decrease Lantus to 38 units. Otherwise, no changes. A1c is ordered for next labs. Assessment & Plan (07/24/2021 9:32 AM CDT): Diabetes control is doing well according to the patient. Will recheck A1c, and I have asked pt to download the Dexcom heather and Clarity heather so that telemedicine visits are more instructive. Assessment & Plan (10/31/2020 8:21 AM CDT): Glucoses are excellent and variability is acceptable for MDI patients. Recommendations: - Continue use of Dexcom CGM for frequent monitoring, insulin dose adjustments and safety (alarms) - Continue metformin, Ozempic and Jardiance - Continue current doses of Lantus and Humalog - Continue lowish carbs and calories. Assessment & Plan (06/13/2020 1:43 PM CLOTH TESTER): Glucose control could not be fully assessed on the telemedicine visit without Dexcom download. Recommend: - A1c - Continue current therapy - Check kidney function Assessment & Plan (02/08/2020 3:26 PM CDT): Glucose control is stable. Pt does not mention excessive co-pays, will check about the cost of an SGLT2i. My recommendations: - Switch Victoza for Ozempic, 1 mg weekly - Start Jardiance, 10 mg daily - Adjust insulin accordingly using Dexcom G6 for guidance - Recheck A1c and kidney function in 3 months - Increase activity, walking or whatever your knees can handle Assessment & Plan (12/05/2019 7:50 PM CDT): Last DFE 04/2019.Stressed BG control. Return approx 04/2020 for DFE Lab Results Component Value Date HGBA1C 7.3 03/31/2019 Assessment & Plan (08/24/2019 10:09 AM CDT): Current doses: Lantus, 48 units Humalo - 15 units ac Scripts are up to date, and labs are OK for now. No changes to meds or insulin doses. Assessment & Plan (04/01/2019 11:28 AM CLOTH TESTER): Diabetes is worsening. Increase Lantus to 50 units; reduce carbs to <40 grams per meal. Continue metformin, Victoza, and humalog at same doses. Check CBC, CMP, Lipid panel, and alb cr ratio (urine) today Diabetes will be reassessed in 5 months. Assessment & Plan (10/15/2018 1:02 PM CDT): Stressed tight BS control. No DFE today. Assessment & Plan (09/16/2018 10:04 AM CDT): Diabetes is worsening. Medication changes per orders. Increase Lantus to 47 units; reduce carbs to <40 grams per meal. Diabetes will be reassessed in 3 months. Assessment & Plan (06/16/2018 9:16 PM CLOTH TESTER): Diabetes is improving with treatment. Continue current treatment regimen. but stop glimepiride; take insulin before eating and try not to miss doses. See Monserrat Vann' note. Continue use of the CGM for safety. Diabetes will be reassessed in 6 months. Knee pain 01/04/2015 Hypothyroidism 11/13/2014 Assessment & Plan (11/15/2023 4:02 PM CDT): Chronic and stable - Levothyroxine Assessment & Plan (12/25/2021 2:07 PM CDT): TSH has been OK, will recheck. No changes. Assessment & Plan (07/24/2021 9:28 AM CDT): Recheck TFT, adjust as needed. Pt remains on a low dose of levothyroxine. Assessment & Plan (10/31/2020 2:06 PM CDT): TSH has been stable, last measured in Jan, 2020. Will recheck. Assessment & Plan (06/13/2020 1:39 PM CLOTH TESTER): Has been well controlled on low dose levothyroxine, will check TSH. Assessment & Plan (02/08/2020 3:27 PM CDT): TSH is perfect, no changes to levothyroxine dose. Assessment & Plan (04/01/2019 11:27 AM CLOTH TESTER): Continue current replacement, 88 mcg. Will check TSH today Assessment & Plan (06/16/2018 9:17 PM CLOTH TESTER): Thyroid functions are normal on current replacement, 88 mcg. No changes. Actinic keratosis 07/17/2012 Osteoarthritis of knee 12/16/2007 Assessment & Plan (06/16/2018 9:19 PM CLOTH TESTER): Follow-up with refund specialist. Hyperlipidemia 07/21/2006 Assessment & Plan (11/15/2023 4:13 PM CDT): - Lipitor indicated, continue Assessment & Plan (12/25/2021 2:07 PM CDT): LDL is much higher than it should be at 140 mg/dl. Pt states that she misses evening medications at times. Rec: Take atorvastatin in the morning, then recheck lipid panel. Assessment & Plan (07/24/2021 9:27 AM CDT): Recheck lipid panel, adjust statin as needed. Assessment & Plan (10/31/2020 1:47 PM CDT): Switch from simvastatin, 40 mg daily to atorvastatin, 20 mg daily and repeat lipids in 2 - 3 months. Assessment & Plan (06/13/2020 1:44 PM CLOTH TESTER): Last LDL was 90, but diabetes therapies have changed. Will recheck. Assessment & Plan (02/08/2020 3:26 PM CDT): LDL is at target, continue simvastatin. Assessment & Plan (04/01/2019 11:29 AM CLOTH TESTER): Lipid abnormalities are improving with treatment. LDL is 47 in 06/2018. Continue simvastatin 40 mg daily Lipids will be reassessed in 6 months. Assessment & Plan (06/16/2018 9:17 PM CLOTH TESTER): Lipid abnormalities are improving with treatment. LDL is 97 mg/dl. The patient was referred to the title i assistant. and Pharmacotherapy as ordered. Lipids will be reassessed in 6 months. Obesity 07/21/2006 Assessment & Plan (01/25/2024 12:48 PM CDT): - BMI 40.32 on admission - provide bariatric equipment Assessment & Plan (04/01/2019 11:30 AM CLOTH TESTER): Obesity is unchanged. She is less active after nursing home. Discussed the patient's BMI. The BMI is too high, and is causing serious morbidities. . General weight loss/lifestyle modification strategies discussed (elicit support from others; identify saboteurs; non-food rewards, etc). Pharmacotherapy as ordered. Given bilateral knee pain, recommended water based exercises Assessment & Plan (09/16/2018 10:02 AM CDT): Obesity is unchanged. Discussed the patient's BMI. The BMI is too high, and is causing serious morbidities. . General weight loss/lifestyle modification strategies discussed (elicit support from others; identify saboteurs; non-food rewards, etc). Pharmacotherapy as ordered. Restructure the plan after nursing home in November. Hypertension 02/19/2006 Assessment & Plan (11/15/2023 4:14 PM CDT): Self-reported, not on anti-hypertensive therapy - Can consider as part of GDMT if indicated Assessment & Plan (10/31/2020 8:19 AM CDT): No recent measurements. Pt takes Benicar religiously, says that her BP has not been high in years. Recommend getting a home BP cuff and do some home measurements. Assessment & Plan (08/24/2019 10:09 AM CDT): Pt has a BP cuff at home but cannot find it. Instructions are to locate it and check once in awhile. Assessment & Plan (09/16/2018 10:05 AM CDT): Hypertension is unchanged. Continue current treatment regimen. Blood pressure will be reassessed at the next regular appointment. Assessment & Plan (06/16/2018 9:18 PM CLOTH TESTER): Hypertension is worsening, BP has increased to 140/77 mmHg. Continue current treatment regimen. Losartan/HCTZ. Blood pressure will be reassessed at the next regular appointment. Resolved Problems Problem Noted Date Diagnosed Date Resolved Date Leucocytosis 01/22/2024 01/26/2024 Assessment & Plan (01/25/2024 12:49 PM CDT): - Elevated WBC level post cardiac surgery - WBC now WNL - pt. remained afebrile - continue to trend. Daily CBC Thrombocytopenia 01/22/2024 01/25/2024 Assessment & Plan (01/22/2024 2:29 PM CDT): - low platelet level post cardiac surgery - Platelet level 134 today from 132 - no overt signs of bleeding - continue daily CBC Trigger finger of left thumb 12/09/2017 01/21/2024 Primary open angle glaucoma (POAG) 09/05/2015 10/15/2018 Nuclear sclerotic cataract 09/05/2015 0 06/11/2018 Nonproliferative diabetic retinopathy 11/03/2009 12/05/2019 Immunizations Name Administration Dates Next Due Influenza, Trivalent, High D ose, Split, Preservative Free, Intramuscular 03/06/2019 Influenza, Unspecified 02/16/2020,03/06/2019 Pneumococcal Conjugate PCV 13 08/12/2018 Pneumococcal Polysaccharide PPV23 04/29/2017 ZOSTER LIVE 04/29/2017 Social History Tobacco Use Types Packs/Day Years Used Date Smoking Tobacco: Never Smokeless Tobacco: Never Tobacco Cessation:Counseling Given: No AUDIT-C Answer Date Recorded Q1: How often [...] on file Legal Sex Female 3:59 AM CLOTH TESTER Gender Identity Female 05/13/2021 4:21 PM CLOTH TESTER Sexual Orientation Not on file Last Filed Vital Signs Vital Sign Reading Time Taken Comments Blood Pressure 121/74 03/30/2024 10:22 AM CLOTH TESTER Pulse 78 03/30/2024 10:22 AM CLOTH TESTER Temperature 36.7 ??C (98.1 ??F) 03/30/2024 10:[address] Respiratory Rate 18 01/28/2024 10:39 AM CDT Oxygen Saturation 100% 02/26/2024 12:10 PM CDT Inhaled Oxygen Concentration - - Weight 86.3 kg (190 lb 3.2 oz) 03/30/2024 10:22 AM CLOTH TESTER Height 149.9 cm (4' 11 ) 03/30/2024 10:22 AM CLOTH TESTER Body Mass Index 38.42 03/30/2024 10:22 AM CLOTH TESTER Plan of Treatment Not on file Medical Devices Implanted Type Area Yarder Engineer Device Identifier Shelf Expiration Date Model / Serial / Lot [employer] Lens Iol Posterior Biconvex Optic Single Piece Envista 6.0x12.5 +18.0d Hydrophobic Acrylic [id number] - [id number] - [id number] Implanted:Qty: 1 on 06/14/2022 by Makayla Ramos MD at [facility] Lens Right: Lens [employer] [id number] 10/10/2024 [id number] / [id number] / [employer] Lens Iol Posterior Biconvex Optic Single Piece Envista 6.0x12.5 +18.0d Hydrophobic Acrylic [id number] - [id number] - [id number] Implanted:Qty: 1 on 08/16/2022 by Makayla Ramos MD at [facility] Lens Left: Eye [employer] [id number] 05/12/2025 [id number] / [id number] / [id number] [employer] Sternalock Hernan 2.4mm 16mm Self Drill Lock Sternum Cancellous 73-5046 - [id number] Implanted:Qty: 4 on 01/20/2024 by Jeff Alaniz MD at [facility] N/A: Sternum [employer] 73-0926 / / Trial [id number] Achv Atriclip Tony Exclusion System [id number] - [id number] Implanted:Qty: 1 on 01/20/2024 by Stan Treviño MD at [facility] N/A: Heart Atricure [id number] / / Description:clinical trial i tem [id number] ACHV ATRICLIP TONY EXCLUSION SYSTEM [id number] [employer] Suture [place] Cor Knot Pre Loaded Fastener Device Micro Titanium 0 43971 - S0 - [id number] Implanted:Qty: 1 on 01/20/2024 by Stan Treviño MD at [facility] N/A: Heart [employer] [id number] 06/12/2026 [id number] / 0 / [id number] [employer] Suture [place] Cor Knot Pre Loaded Fastener Device Micro Titanium 0 34938 - S0 - [id number] Implanted:Qty: 1 on 01/20/2024 by Stan Treviño MD at [facility] N/A: Heart [employer] [id number] 09/09/2026 13911 / 0 / [id number] [employer] Suture [place] Cor Knot Pre Loaded Fastener Device Micro Titanium 0 03969 - S0 - [id number] Implanted:Qty: 1 on 01/20/2024 by Stan Treviño MD at [facility] N/A: Heart [employer] [id number] 07/10/2026 16582 / 0 / [id number] [employer] Suture [place] Cor Knot Pre Loaded Fastener Device Micro Titanium 0 44664 - S0 - [id number] Implanted:Qty: 1 on 01/20/2024 by Stan Treviño MD at [facility] N/A: Heart [employer] [id number] 10/10/2026 73922 / 0 / [id number] Atricure Device Left Atrial Appendage Malleable Shaft 180 Degree Rotation White Atriclip Flex V 40mm Flexv40 Achv40 - [id number] Implanted:Qty: 1 on 01/20/2024 by Stan Treviño MD at [facility] N/A: Heart Atricure 07/11/2026 [id number] / / [id number] Description:LEFT ATRIAL APPE NDAGE S/B clinical trial item [id number] ACHV ATRICLIP TONY EXCLUSION SYSTEM [id number] [employer] Sternalock 360 Sternal Closure 74-0004 - [id number] Implanted:Qty: 1 on 01/20/2024 by Jeff Alaniz MD at [facility] N/A: Sternum [employer] [id number] 11/04/2028 74-0004 / / [id number] [employer] Sternalock Hernan 2.4mm 14mm Self Drill Lock Sternum Cancellous 73-2414 - [id number] Implanted:Qty: 12 on 01/20/2024 by Jeff Alaniz MD at [facility] N/A: Sternum [employer] [id number] / / Procedures Procedure Name Priority Date/Time Associated Diagnosis Comments CBC WITH AUTO DIFFERENTIAL Routine 04/27/2024 9:24 AM CLOTH TESTER Anemia, unspecified type EGFR Routine 03/02/2024 12:20 PM CDT Type 2 diabetes mellitus with hyperlipidemia (HCC) DIFFERENTIAL AUTO Routine 03/02/2024 12:20 PM CDT Iron deficiency anemia, unspecified iron deficiency anemia type CBC WITH AUTO DIFFERENTIAL Routine 03/02/2024 12:20 PM CDT Iron deficiency anemia, unspecified iron deficiency anemia type IRON PROFILE W/ IBC Routine 03/02/2024 12:20 PM CDT Iron deficiency anemia, unspecified iron deficiency anemia type VITAMIN B12 Routine 03/02/2024 12:20 PM CDT Iron deficiency anemia, unspecified iron deficiency anemia type RETICULOCYTES Routine 03/02/2024 12:20 PM CDT Iron deficiency anemia, unspecified iron deficiency anemia type RENAL FUNCTION PANEL Routine 03/02/2024 12:20 PM CDT Type 2 diabetes mellitus with hyperlipidemia (HCC) PRO B-TYPE NATRIURETIC PEPTIDE Routine 03/02/2024 12:20 PM CDT Heart failure, unspecified HF chronicity, unspecified heart failure type (HCC) THYROID FUNCTION CASCADE Routine 03/02/2024 12:20 PM CDT 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 LIPID PANEL Routine 03/02/2024 12:20 PM CDT Mixed hyperlipidemia POCT HEMOGLOBIN A1C Routine 03/02/2024 11:35 AM CDT Type 2 diabetes mellitus with hyperlipidemia (HCC) POCT GLUCOSE 10529 Routine 03/02/2024 11:33 AM CDT Type 2 diabetes mellitus with hyperlipidemia (HCC) XR CHEST PA LATERAL 2 VIEWS Schedule Routine, Read Routine (OP Routine) 02/26/2024 11:42 AM CDT Coronary artery disease involving [place] heart, unspecified vessel or lesion type, unspecified whether angina present EGFR Routine 02/05/2024 6:06 AM CDT BASIC METABOLIC PANEL Routine 02/05/2024 6:06 AM CDT DIFFERENTIAL AUTO Routine 02/05/2024 6:0 6 AM CDT CBC WITH AUTO DIFFERENTIAL Routine 02/05/2024 6:06 AM CDT EGFR Routine 02/03/2024 6:01 AM CDT BASIC METABOLIC PANEL Routine 02/03/2024 6:01 AM CDT DIFFERENTIAL AUTO Routine 02/03/2024 6:0 1 AM CDT CBC WITH AUTO DIFFERENTIAL Routine 02/03/2024 6:01 AM CDT EGFR Routine 02/02/2024 4:30 AM CDT BASIC METABOLIC PANEL Routine 02/02/2024 4:30 AM CDT EGFR Routine 02/01/2024 4:35 AM CDT BASIC METABOLIC PANEL Routine 02/01/2024 4:35 AM CDT MAGNESIUM Routine 02/01/2024 4:35 AM CDT EGFR Routine 01/31/2024 5:00 AM CDT PRO B-TYPE NATRIURETIC PEPTIDE Routine 01/31/2024 5:00 AM CDT BASIC METABOLIC PANEL Routine 01/31/2024 5:00 AM CDT DIFFERENTIAL AUTO Routine 01/31/2024 5:0 0 AM CDT CBC WITH AUTO DIFFERENTIAL Routine 01/31/2024 5:00 AM CDT EGFR Routine 01/29/2024 6:20 AM CDT COMPREHENSIVE METABOLIC PANEL Routine 01/29/2024 6:20 AM CDT BASIC METABOLIC PANEL Routine 01/29/2024 6:20 AM CDT MAGNESIUM Routine 01/29/2024 6:20 AM CDT DIFFERENTIAL AUTO Routine 01/29/2024 6:2 0 AM CDT CBC WITH AUTO DIFFERENTIAL Routine 01/29/2024 6:20 AM CDT CBC WITHOUT DIFFERENTIAL Routine 01/29/2024 6:20 AM CDT ALBUMIN CREATININE RATIO, URINE Routine 10/29/2023 9:30 AM CDT Type 2 diabetes mellitus with hyperlipidemia (HCC) DEXA AXIAL SKELETON BONE DENSITY 1 OR MORE SITES Schedule Routine, Read Routine (OP Routine) 12/03/2022 10:04 AM CDT Osteoporosis without current pathological fracture, unspecified osteoporosis type from Last 3 Months or Most Recently Relevant to Health Maintenance Results * (ABNORMAL) CBC with auto differential (04/27/2024 9:24 AM CLOTH TESTER) Pathologist [facility] WBC 7.8 3.8 - 10.8 Thousand/u L [facility] RBC, POC 4.16 3.80 - 5.10 Million/uL [facility] Hgb 11.6(L) 11.7 - 15.5 g/dL [facility] Hct 37.7 35.0 - 45.0 % [facility] MCV 90.6 80.0 - 100.0 fL [facility] MCH 27.9 27.0 - 33.0 pg [facility] MCHC 30.8(L) 32.0 - 36.0 g/dL [facility] Comment: For adults, a slight decrease in the calculated MCHC value (in the range of 30 to 32 g/dL) is most likely not clinically significant; however, it should be interpreted with caution in correlation with other red cell parameters and the patient's clinical condition. Rdw 13.7 11.0 - 15.0 % [facility] Platelets 268 140 - 400 Thousand/u L [facility] MPV 11.0 7.5 - 12.5 fL [facility] Neutrophils, abs 4,828 1,500 - 7,800 cells/uL [facility] Lymphocytes, abs 2,090 850 - 3,900 cells/uL [facility] Monocyte abs 694 200 - 950 cells/uL [facility] Eosinophils, abs 140 15 - 500 cells/uL [facility] Basophils, abs 47 0 - 200 cells/uL [facility] Neutrophils 61.9 % [facility] Lymphocyte pct 26.8 % [facility] Monocytes 8.9 % [facility] Eosinophils 1.8 % [facility] Basophils 0.6 % [facility] Blood 04/27/2024 9:24 AM CLOTH TESTER 04/27/2024 9:25 AM CLOTH TESTER Lia Mariano AUTO RESEARCH ENGINEER LAB BLOOD ORDERABLES Phyllis l Result [facility] [address] [facility] [address] [place] [address] * (ABNORMAL) eGFR (03/02/2024 12:20 PM CDT) [...] MD LAB BLOOD ORDERABLES Final Re sult [facility] Department [place] [address] * Differential, auto (03/02/2024 12:20 PM CDT) Neutrophil abs 4.9 1.5 - 6.5 K/cumm Imm gran abs 0.0 0.0 - 0.1 K/cumm [facility] Lymphocyte abs 2.1 0.8 - 3.3 K/cumm [facility] Monocyte abs 0.6 0.2 - 0.8 K/cumm [facility] Eosinophil abs 0.1 0.0 - 0.5 K/cumm [facility] Basophil abs 0.0 0.0 - 0.1 K/cumm [facility] Neutrophil pct 62.9 % [facility] Comment: Interpretive Data Percent cell count reference ranges are not reported, since discordance with absolute values may lead to misinterpretation of CBC data. Current Interpretive Data was last revised on 2017. Imm gran pct 0.3 % [facility] Comment: Interpretive Data Percent cell count reference ranges are not reported, since discordance with absolute values may lead to misinterpretation of CBC data. Current Interpretive Data was last revised on 2017. Lymphocyte pct 27.0 % [facility] Comment: Interpretive Data Percent cell count reference ranges are not reported, since discordance with absolute values may lead to misinterpretation of CBC data. Current Interpretive Data was last revised on 2017. Monocyte pct 7.9 % [facility] Comment: Interpretive Data Percent cell count reference ranges are not reported, since discordance with absolute values may lead to misinterpretation of CBC data. Current Interpretive Data was last revised on 2017. Eosinophil pct 1.4 % [facility] Comment: Interpretive Data Percent cell count reference ranges are not reported, since discordance with absolute values may lead to misinterpretation of CBC data. Current Interpretive Data was last revised on 2017. Basophil pct 0.5 % [facility] Comment: Interpretive Data Percent cell count reference ranges are not reported, since discordance with absolute values may lead to misinterpretation of CBC data. Current Interpretive Data was last revised on 2017. Blood 03/02/2024 12:2 0 PM CDT 03/02/2024 12:49 PM CDT us Merna Bell MD LAB BLOOD ORDERABLES Final Re sult [facility] Department [place] [address] * (ABNORMAL) Pro B-type natriuretic peptide (03/02/2024 [...] PM CDT 03/02/2024 12:49 PM CDT Merna eBll MD LAB BLOOD ORDERABLES Final Re sult Performing Organization Address [facility] Co de Phone Number [facility] Department of [employer] [place] [address] * Thyroid Function [place] (03/02/2024 12:20 PM CDT) TSH 1.21 0.30 - 4.20 mcIUnit/mL Blood 03/02/2024 12:2 0 PM CDT 03/02/2024 12:49 PM CDT Merna Bell MD LAB BLOOD ORDERABLES Final Re sult Performing Organization Address [facility] Co de Phone Number [facility] of [employer] [place] [address] * (ABNORMAL) Iron profile w/ IBC (03/02/2024 12:20 PM CDT) Iron 31(L) 35 - 145 mcg/dL TIBC 237(L) 250 - 400 mcg/dL [facility] Transferrin saturation 13(L) 20 - 50 % [facility] Blood 03/02/2024 12:2 0 PM CDT 03/02/2024 12:49 PM CDT Merna Bell MD LAB BLOOD ORDERABLES Final Re sult Performing Organization Address City/[facility]/ZIP Co de Phone Number [facility] of [employer] [place] [address] * (ABNORMAL) CBC with auto differential (03/02/2024 12:20 PM CDT) [facility] WBC 7.8 3.8 - 9.9 K/cumm Hgb 10.7(L) 11.9 - 15.5 g/dL [facility] Hct 33.4(L) 35.6 - 45.5 % [facility] Plt 261 150 - 400 K/cumm [facility] MPV 10.7 9.1 - 12.3 fL [facility] RBC 3.81(L) 3.90 - 5.20 M/cumm [facility] MCV 87.7 81.3 - 96.4 fL [facility] MCH 28.1 27.1 - 33.3 pg [facility] MCHC 32.0(L) 32.3 - 35.7 g/dL [facility] RDW CV 13.1 11.1 - 14.9 % [facility] RDW SD 41.5 35.7 - 48.1 fL [facility] NRBC abs 0.00 0.00 - 0.01 K/cumm [facility] Blood 03/02/2024 12:2 0 PM CDT 03/02/2024 12:49 PM CDT Merna Bell MD LAB BLOOD ORDERABLES Final Re sult [facility] [employer] [place] [address] * (ABNORMAL) Reticulocyte Count (03/02/2024 12:20 PM CDT) [facility] Retics, absolute 0.058 0.020 - 0.087 M/cumm Retics 1.5 0.4 - 2.9 % [facility] Reticulocyte Hgb 28.7(L) 30.5 - 38.0 pg [facility] Blood 03/02/2024 12:2 0 PM CDT 03/02/2024 12:49 PM CDT Merna Bell MD LAB BLOOD ORDERABLES Final Re sult Performing Organization Address [facility] Co de Phone Number [facility] Department [place] [address] * Vitamin B12 (03/02/2024 12:20 PM CDT) [facility] Vitamin B12 281 230 - 1,250 pg/mL Blood 03/02/2024 12:2 0 PM CDT 03/02/2024 12:49 PM CDT Merna Bell MD LAB BLOOD ORDERABLES Final Re sult Performing Organization Address [facility] de Phone Number [facility] [place] [address] * (ABNORMAL) Renal function panel (03/02/2024 12:20 PM CDT) [facility] Sodium 143 135 - 145 mmol/L Potassium, pl 3.3 3.3 - 4.9 mmol/L [facility] Chloride 104 97 - 110 mmol/L [facility] CO2 23 22 - 32 mmol/L [facility] Anion gap 16(H) 2 - 15 mmol/L [facility] BUN 21 6 - 25 mg/dL [facility] Creatinine 1.26(H) 0.60 - 1.10 mg/dL [facility] Glucose 204(H) 70 - 199 mg/dL [facility] Comment: Interpretive Data Fasting glucose >/= 126 [...] classification and Diagnosis of Diabetes Diabetes Care 2022; 46: S19-S40. Current interpretive data was last revised 2022. Calcium 9.2 8.5 - 10.3 mg/dL [facility] Phosphorus, pl 4.3 2.3 - 4.5 mg/dL [facility] Albumin 3.8 3.5 - 5.0 g/dL [facility] Blood 03/02/2024 12:2 0 PM CDT 03/02/2024 12:49 PM CDT us Merna Bell MD LAB BLOOD ORDERABLES Final Re sult [facility] Department [place] [address] * (ABNORMAL) Lipid panel (03/02/2024 12:20 PM [...] revised on 2017. Triglycerides 209(H) <=149 mg/dL [facility] Comment: Interpretive Data Ages < or = [...] revised on 2017. HDL 45 >=40 mg/dL [facility] Comment: Interpretive Data Ages < or [...] on 2017. LDL, calculated 81 <=129 mg/dL [facility] Comment: Interpretive Data Ages < or [...] revised on 2024. Non-HDL Cholesterol 116 mg/dL [facility] Comment: Interpretive Data Ages [...] last revised on 2017. Chol/HDL ratio 4 [facility] Blood 03/02/2024 12:2 0 PM CDT 03/02/2024 12:49 PM CDT us Merna Bell MD LAB BLOOD ORDERABLES Final Re sult [facility] [place] [address] * POCT hemoglobin A1c (03/02/2024 11:35 AM CDT) Hemoglobin A1C, POC 7.1 4.0 - 5.6 % Blood 03/02/2024 11:3 5 AM CDT us Merna Bell MD POINT OF CARE TEST ORDERABLES Final Result * POCT glucose (03/02/2024 11:33 AM CDT) Glucose Blood, POC 230 mg/dL Blood 03/02/2024 11:3 3 AM CDT Merna Bell MD POINT OF CARE TEST ORDERABLES Final Result * XR Chest Pa Lateral 2 Views [...] unchanged. Electronically signed by: Ravi Flores M.D. us Stan Treviño MD IMG XR PROCEDURES Final Resul t * (ABNORMAL) eGFR (02/05/2024 6:06 AM CDT) Pathologist [facility] eGFR 39(L) >=60 mL/min/1. 73 m2 [facility] [...] was last reviewed 2021. Testing performed by: [address] [address] Blood 02/05/2024 6:06 AM CDT 02/05/2024 9:48 AM CDT us Notinfile Unknown LAB BLOOD ORDERABLES Final Res ult [facility] [address] [facility] Department [place] [address] * Differential, auto (02/05/2024 6:06 AM CDT) Neutrophil abs 3.6 1.5 - 6.5 K/cumm [facility] Comment:Testing performed by : [address] [address] Imm gran abs 0.0 0.0 - 0.1 K/cumm [facility] Comment:Testing performed by : [address] [address] Lymphocyte abs 1.6 0.8 - 3.3 K/cumm [facility] Comment:Testing performed by : [address], [place]., [address] Monocyte abs 0.6 0.2 - 0.8 K/cumm [facility] Comment:Testing performed by : [address], [place]., [address] Eosinophil abs 0.1 0.0 - 0.5 K/cumm [facility] Comment:Testing performed by : [address], [place]., [address] Basophil abs 0.0 0.0 - 0.1 K/cumm [facility] Comment:Testing performed by : [address] [address] Neutrophil pct 59.7 % [facility] Comment: Interpretive Data Percent cell count reference ranges are not reported, since discordance with absolute values may lead to misinterpretation of CBC data. Current Interpretive Data was last revised on 2017. Testing performed by: [address] [address] Imm gran pct 0.7 % [facility] Comment: Interpretive Data Percent cell count reference ranges are not reported, since discordance with absolute values may lead to misinterpretation of CBC data. Current Interpretive Data was last revised on 2017. Testing performed by: [address] [address] Lymphocyte pct 26.8 % [facility] Comment: Interpretive Data Percent cell count reference ranges are not reported, since discordance with absolute values may lead to misinterpretation of CBC data. Current Interpretive Data was last revised on 2017. Testing performed by: [address] [address] Monocyte pct 10.1 % [facility] Comment: Interpretive Data Percent cell count reference ranges are not reported, since discordance with absolute values may lead to misinterpretation of CBC data. Current Interpretive Data was last revised on 2017. Testing performed by: [address] [address] Eosinophil pct 2.0 % JORGE EDGE Comment: Interpretive Data Percent cell count reference ranges are not reported, since discordance with absolute values may lead to misinterpretation of CBC data. Current Interpretive Data was last revised on 2017. Testing performed by: [address] [address] Basophil pct 0.7 % JORGE EDGE Comment: Interpretive Data Percent cell count reference ranges are not reported, since discordance with absolute values may lead to misinterpretation of CBC data. Current Interpretive Data was last revised on 2017. Testing performed by: [address] [address] Blood 02/05/2024 6:06 AM CDT 02/05/2024 9:48 AM CDT us Notinfile Unknown LAB BLOOD ORDERABLES Final Res ult JORGE [facility]6 [facility] Department [place] [address] * (ABNORMAL) CBC with auto differential (02/05/2024 6:06 AM CDT) WBC 6.0 3.8 - 9.9 K/cumm JORGE EDGE Comment:Testing performed by : [address] [address] Hgb 8.1(L) 11.9 - 15.5 g/dL JORGE EDGE Comment:Testing performed by : [address] [address] Hct 26.6(L) 35.6 - 45.5 % JORGE EDGE Comment:Testing performed by : [address] [address] Plt 343 150 - 400 K/cumm JORGE EDGE Comment:Testing performed by : [address] [address] MPV 10.4 9.1 - 12.3 fL JORGE EDGE Comment:Testing performed by : [address] [address] RBC 2.79(L) 3.90 - 5.20 M/cumm JORGE EDGE Comment:Testing performed by : [address] [address] MCV 95.3 81.3 - 96.4 fL JORGE EDGE Comment:Testing performed by : [address] [address] MCH 29.0 27.1 - 33.3 pg JORGE EDGE Comment:Testing performed by : [address] [address] MCHC 30.5(L) 32.3 - 35.7 g/dL JORGE EDGE Comment:Testing performed by : [address], [address] RDW CV 14.6 11.1 - 14.9 % JORGE EDGE Comment:Testing performed by : [address] [address] RDW SD 50.4(H) 35.7 - 48.1 fL JORGE EDGE Comment:Testing performed by : [address] [address] NRBC abs 0.00 0.00 - 0.01 K/cumm JORGE Comment:Testing performed by : [address], [address] Blood 02/05/2024 6:06 AM CDT 02/05/2024 9:48 AM CDT us Notinfile Unknown LAB BLOOD ORDERABLES Final Res ult JORGE 4401 [facility] Department [place] [address] * (ABNORMAL) Basic metabolic panel (02/05/2024 6:06 AM CDT) Sodium 140 135 - 145 mmol/L JORGE EDGE Comment:Testing performed by : [address] [address] Potassium, pl 4.6 3.3 - 4.9 mmol/L JORGE EDGE Comment:Testing performed by : [address] [address] Chloride 107 97 - 110 mmol/L JORGE Comment:Testing performed by : [address] [address] CO2 22 22 - 32 mmol/L JORGE Comment:Testing performed by : [address] [address] Anion gap 11 2 - 15 mmol/L JORGE Comment:Testing performed by : [address] [address] BUN 26(H) 6 - 25 mg/dL JORGE Comment:Testing performed by : [address] [address] Creatinine 1.40(H) 0.60 - 1.10 mg/dL JORGE Comment:Testing performed by : [address] [address] Glucose 107 70 - 199 mg/dL JORGE Comment: Interpretive [...] was last revised 2022. Testing performed by: [address] [address] Calcium 9.1 8.5 - 10.3 mg/dL JORGE Comment:Testing performed by : [address] [address] Blood 02/05/2024 6:06 AM CDT 02/05/2024 9:48 AM CDT us Notinfile Unknown LAB BLOOD ORDERABLES Final Res ult JORGE 6456 [facility] Department of Laboratories [place], [place] [id number] * (ABNORMAL) eGFR (02/03/2024 6:01 AM CDT) [...] was last reviewed 2021. Testing performed by: [facility], [address] [place] [address]., [address] Blood 02/03/2024 6:01 AM CDT 02/03/2024 8:28 AM CDT us Notinfile Unknown LAB BLOOD ORDERABLES Final Res ult JORGE EDGE 2293 [facility] Department [place] [address] * Differential, auto (02/03/2024 6:01 AM CDT) Pathologist [facility] Neutrophil abs 5.6 1.5 - 6.5 K/cumm JORGE Comment:Testing performed by : [facility], [address] [place] [address], [place]., [address] Imm gran abs 0.1 0.0 - 0.1 K/cumm [facility] Comment:Testing performed by : [facility], [address] [place] [address], [place]., [address] Lymphocyte abs 2.8 0.8 - 3.3 K/cumm [facility] Comment:Testing performed by : [address], [place]., [address] Monocyte abs 0.7 0.2 - 0.8 K/cumm [facility] Comment:Testing performed by : [address], [place]., [address] Eosinophil abs 0.2 0.0 - 0.5 K/cumm [facility] Comment:Testing performed by : [address], [place]., [address] Basophil abs 0.1 0.0 - 0.1 K/cumm [facility] Comment:Testing performed by : [address] [address] Neutrophil pct 60.0 % [facility] Comment: Interpretive Data Percent cell count reference ranges are not reported, since discordance with absolute values may lead to misinterpretation of CBC data. Current Interpretive Data was last revised on 2017. Testing performed by: [address] [address] Imm gran pct 0.9 % [facility] Comment: Interpretive Data Percent cell count reference ranges are not reported, since discordance with absolute values may lead to misinterpretation of CBC data. Current Interpretive Data was last revised on 2017. Testing performed by: [address] [address] Lymphocyte pct 29.4 % CERNER Comment: Interpretive Data Percent cell count reference ranges are not reported, since discordance with absolute values may lead to misinterpretation of CBC data. Current Interpretive Data was last revised on 2017. Testing performed by: [address] [address] Monocyte pct 7.2 % CERNER Comment: Interpretive Data Percent cell count reference ranges are not reported, since discordance with absolute values may lead to misinterpretation of CBC data. Current Interpretive Data was last revised on 2017. Testing performed by: [address] [address] Eosinophil pct 1.9 % JORGE Comment: Interpretive Data Percent cell count reference ranges are not reported, since discordance with absolute values may lead to misinterpretation of CBC data. Current Interpretive Data was last revised on 2017. Testing performed by: [address] [address] Basophil pct 0.6 % JORGE Comment: Interpretive Data Percent cell count reference ranges are not reported, since discordance with absolute values may lead to misinterpretation of CBC data. Current Interpretive Data was last revised on 2017. Testing performed by: [address] [address] Blood 02/03/2024 6:01 AM CDT 02/03/2024 8:28 AM CDT us Notinfile Unknown LAB BLOOD ORDERABLES Final Res ult JORGE 9732 [facility] Department [place] [address] * (ABNORMAL) CBC with auto differential (02/03/2024 6:01 AM CDT) WBC 9.3 3.8 - 9.9 K/cumm JORGE Comment:Testing performed by : [address] [address] Hgb 9.5(L) 11.9 - 15.5 g/dL JORGE Comment:Testing performed by : [address] [address] Hct 29.9(L) 35.6 - 45.5 % JORGE Comment:Testing performed by : [address] [address] Plt 426(H) 150 - 400 K/cumm JORGE Comment:Testing performed by : [address] [address] MPV 10.5 9.1 - 12.3 fL JORGE EDGE Comment:Testing performed by : [address] [address] RBC 3.20(L) 3.90 - 5.20 M/cumm JORGE EDGE Comment:Testing performed by : [address] [address] MCV 93.4 81.3 - 96.4 fL JORGE EDGE Comment:Testing performed by : [address] [address] MCH 29.7 27.1 - 33.3 pg JORGE EDGE Comment:Testing performed by : [address] [address] MCHC 31.8(L) 32.3 - 35.7 g/dL JORGE EDGE Comment:Testing performed by : [address], [address] RDW CV 14.5 11.1 - 14.9 % JORGE EDGE Comment:Testing performed by : [address], [address] RDW SD 49.1(H) 35.7 - 48.1 fL JORGE EDGE Comment:Testing performed by : [address] [address] NRBC abs 0.00 0.00 - 0.01 K/cumm JORGE EDGE Comment:Testing performed by : [address] [address] Blood 02/03/2024 6:01 AM CDT 02/03/2024 8:28 AM CDT us Notinfile Unknown LAB BLOOD ORDERABLES Final Res ult JORGE EDGE 6854 [facility] Department of Laboratories [place], [place] [id number] * (ABNORMAL) Basic metabolic panel (02/03/2024 6:01 AM CDT) Sodium 140 135 - 145 mmol/L JORGE EDGE Comment:Testing performed by : [address] [address] Potassium, pl 4.4 3.3 - 4.9 mmol/L JORGE Comment:Testing performed by : [address] [address] Chloride 104 97 - 110 mmol/L JORGE Comment:Testing performed by : [address], [place]., [address] CO2 22 22 - 32 mmol/L JORGE Comment:Testing performed by : [address], [place]., [address] Anion gap 14 2 - 15 mmol/L JORGE Comment:Testing performed by : [address], [place]., [address] BUN 23 6 - 25 mg/dL JORGE Comment:Testing performed by : [address], [place]., [address] Creatinine 1.40(H) 0.60 - 1.10 mg/dL JORGE Comment:Testing performed by : [address], [place]., [address] Glucose 111 70 - 199 mg/dL [facility] Comment: Interpretive Data Fasting glucose >/= 126 [...] was last revised 2022. Testing performed by: [address] [address] Calcium 9.3 8.5 - 10.3 mg/dL JORGE Comment:Testing performed by : [address], [place]., [address] Blood 02/03/2024 6:01 AM CDT 02/03/2024 8:28 AM CDT us Notinfile Unknown LAB BLOOD ORDERABLES Final Res ult Performing Organization Address [facility] Co de Phone Number JORGE [address] [facility] [place] [address] * (ABNORMAL) eGFR (02/02/2024 4:30 AM CDT) eGFR 43(L) >=60 mL/min/1. 73 m2 JORGE EDGE Comment: [...] was last reviewed 2021. Testing performed by: [facility], [address] [place] [address], [place]., [address] Blood 02/02/2024 4:30 AM CDT 02/02/2024 9:37 AM CDT us Notinfile Unknown LAB BLOOD ORDERABLES Final Res ult Performing Organization Address City/[facility] Co de Phone Number JORGE 0311 [facility] Department of [place], [place] [id number] * (ABNORMAL) Basic metabolic panel (02/02/2024 4:30 AM CDT) Sodium 141 135 - 145 mmol/L JORGE Comment:Testing performed by : [address] [address] Potassium, pl 4.2 3.3 - 4.9 mmol/L JORGE Comment:Testing performed by : [address] [address] Chloride 106 97 - 110 mmol/L JORGE Comment:Testing performed by : [address], [place]., [address] CO2 23 22 - 32 mmol/L JORGE Comment:Testing performed by : [address], [place]., [address] Anion gap 12 2 - 15 mmol/L JORGE Comment:Testing performed by : [address] [address] BUN 24 6 - 25 mg/dL JORGE Comment:Testing performed by : [address] [address] Creatinine 1.30(H) 0.60 - 1.10 mg/dL JORGE Comment:Testing performed by : [address] [address] Glucose 77 70 - 199 mg/dL JORGE Comment: Interpretive [...] was last revised 2022. Testing performed by: [address] [address] Calcium 8.9 8.5 - 10.3 mg/dL JORGE Comment:Testing performed by : [facility], [address] [place] [address]., [address] Blood 02/02/2024 4:30 AM CDT 02/02/2024 9:37 AM CDT us Notinfile Unknown LAB BLOOD ORDERABLES Final Res ult JORGE 9526 [facility] Department [place] [address] * (ABNORMAL) eGFR (02/01/2024 4:35 AM CDT) [...] was last reviewed 2021. Testing performed by: [facility], [address] [place] [address]., [address] Blood 02/01/2024 4:35 AM CDT 02/01/2024 8:14 AM CDT us Notinfile Unknown LAB BLOOD ORDERABLES Final Res ult Performing Organization Address City/[facility] Co de Phone Number JORGE 45[address] [place] [address] * Magnesium (02/01/2024 4:35 AM CDT) Magnesium 1.9 1.4 - 2.5 mg/dL JORGE Comment:Testing performed by : [address] [address] Blood 02/01/2024 4:35 AM CDT 02/01/2024 8:13 AM CDT us Notinfile Unknown LAB BLOOD ORDERABLES Final Res ult Performing Organization Address [facility] de Phone Number JORGE [facility] [place] [address] * (ABNORMAL) Basic metabolic panel (02/01/2024 4:35 AM CDT) Sodium 140 135 - 145 mmol/L JORGE Comment:Testing performed by : [address] [address] Potassium, pl 4.7 3.3 - 4.9 mmol/L JORGE Comment:Testing performed by : [address] [address] Chloride 106 97 - 110 mmol/L JORGE Comment:Testing performed by : [address] [address] CO2 22 22 - 32 mmol/L JORGE Comment:Testing performed by : [address] [address] Anion gap 12 2 - 15 mmol/L JORGE Comment:Testing performed by : [address] [address] BUN 27(H) 6 - 25 mg/dL JORGE Comment:Testing performed by : [address] [address] Creatinine 1.70(H) 0.60 - 1.10 mg/dL JORGE Comment:Testing performed by : [address] [address] Glucose 132 70 - 199 mg/dL JORGE [...] was last revised 2022. Testing performed by: [address] [address] Calcium 8.8 8.5 - 10.3 mg/dL JORGE Comment:Testing performed by : [address] [address] Blood 02/01/2024 4:35 AM CDT 02/01/2024 8:13 AM CDT us Notinfile Unknown LAB BLOOD ORDERABLES Final Res ult JORGE 0912 [facility] Department [place] [address] * (ABNORMAL) eGFR (01/31/2024 5:00 AM CDT) Pathologist [facility] eGFR 36(L) >=60 mL/min/1. 73 m2 JORGE [...] was last reviewed 2021. Testing performed by: [address] [address] Blood 01/31/2024 5:00 AM CDT 01/31/2024 8:23 AM CDT us Notinfile Unknown LAB BLOOD ORDERABLES Final Res ult JORGE 0760 [facility] Department [place] [address] * Differential, auto (01/31/2024 5:00 AM CDT) Neutrophil abs 4.7 1.5 - 6.5 K/cumm JORGE Comment:Testing performed by : [address] [address] Imm gran abs 0.1 0.0 - 0.1 K/cumm JORGE Comment:Testing performed by : [address] [address] Lymphocyte abs 1.8 0.8 - 3.3 K/cumm JORGE Comment:Testing performed by : [address] [address] Monocyte abs 0.7 0.2 - 0.8 K/cumm JORGE Comment:Testing performed by : [address] [address] Eosinophil abs 0.1 0.0 - 0.5 K/cumm [facility] Comment:Testing performed by : [address] [address] Basophil abs 0.1 0.0 - 0.1 K/cumm [facility] Comment:Testing performed by : [address] [address] Neutrophil pct 61.7 % [facility] Comment: Interpretive Data Percent cell count reference ranges are not reported, since discordance with absolute values may lead to misinterpretation of CBC data. Current Interpretive Data was last revised on 2017. Testing performed by: [address] [address] Imm gran pct 1.6 % [facility] Comment: Interpretive Data Percent cell count reference ranges are not reported, since discordance with absolute values may lead to misinterpretation of CBC data. Current Interpretive Data was last revised on 2017. Testing performed by: [address] [address] Lymphocyte pct 24.4 % [facility] Comment: Interpretive Data Percent cell count reference ranges are not reported, since discordance with absolute values may lead to misinterpretation of CBC data. Current Interpretive Data was last revised on 2017. Testing performed by: [address] [address] Monocyte pct 9.7 % [facility] Comment: Interpretive Data Percent cell count reference ranges are not reported, since discordance with absolute values may lead to misinterpretation of CBC data. Current Interpretive Data was last revised on 2017. Testing performed by: [address] [address] Eosinophil pct 1.9 % [facility] Comment: Interpretive Data Percent cell count reference ranges are not reported, since discordance with absolute values may lead to misinterpretation of CBC data. Current Interpretive Data was last revised on 2017. Testing performed by: [address] [address] Basophil pct 0.7 % [facility] Comment: Interpretive Data Percent cell count reference ranges are not reported, since discordance with absolute values may lead to misinterpretation of CBC data. Current Interpretive Data was last revised on 2017. Testing performed by: [facility], [address] [place] [address], [place]., [address] Blood 01/31/2024 5:00 AM CDT 01/31/2024 8:23 AM CDT us Notinfile Unknown LAB BLOOD ORDERABLES Final Res ult JORGE 1799 [facility] [place] [address] * (ABNORMAL) Pro B-type natriuretic peptide (01/31/2024 5:00 AM CDT) NT-proBNP 4,427(H) <=300 pg/mL JORGE EDGE Comment: Interpretive Comments: A. Dyspnea in Acute [...] et.al. Eur Heart J. 2006:27:330-337. 2. Malick ENGLISH, Karina QUIROGA. J. AM Remi Cardiol: Cardiovasc Imag. 2009;2: 216- 225. Interpretive Data Last Revised Date: 2017. Testing performed by: [address] [address] Blood 01/31/2024 5:00 AM CDT 01/31/2024 8:23 AM CDT us Notinfile Unknown LAB BLOOD ORDERABLES Final Res ult JORGE 0545 [facility] Department of Laboratories [place], [place] [id number] * (ABNORMAL) CBC with auto differential (01/31/2024 5:00 AM CDT) WBC 7.6 3.8 - 9.9 K/cumm JORGE EDGE Comment:Testing performed by : [address] [address] Hgb 8.2(L) 11.9 - 15.5 g/dL JORGE EDGE Comment:Testing performed by : [address] [address] Hct 26.1(L) 35.6 - 45.5 % JORGE EDGE Comment:Testing performed by : [address] [address] Plt 352 150 - 400 K/cumm JORGE EDGE Comment:Testing performed by : [address] [address] MPV 10.7 9.1 - 12.3 fL JORGE EDGE Comment:Testing performed by : [address] [address] RBC 2.80(L) 3.90 - 5.20 M/cumm JORGE EDGE Comment:Testing performed by : [address] [address] MCV 93.2 81.3 - 96.4 fL JORGE EDGE Comment:Testing performed by : [address] [address] MCH 29.3 27.1 - 33.3 pg JORGE EDGE Comment:Testing performed by : [address] [address] MCHC 31.4(L) 32.3 - 35.7 g/dL JORGE EDGE Comment:Testing performed by : [address] [address] RDW CV 14.6 11.1 - 14.9 % JORGE EDGE Comment:Testing performed by : [address] [address] RDW SD 48.3(H) 35.7 - 48.1 fL JORGE Comment:Testing performed by : [address] [address] NRBC abs 0.00 0.00 - 0.01 K/cumm JORGE Comment:Testing performed by : [address] [address] Blood 01/31/2024 5:00 AM CDT 01/31/2024 8:23 AM CDT us Notinfile Unknown LAB BLOOD ORDERABLES Final Res ult JORGE 8[address] [facility] Department [place] [address] * (ABNORMAL) Basic metabolic panel (01/31/2024 5:00 AM CDT) Pathologist [facility] Sodium 142 135 - 145 mmol/L JORGE EDGE Comment:Testing performed by : [address], [address] Potassium, pl 4.5 3.3 - 4.9 mmol/L JORGE Comment:Testing performed by : [address] [address] Chloride 108 97 - 110 mmol/L JORGE Comment:Testing performed by : [address] [address] CO2 21(L) 22 - 32 mmol/L JORGE Comment:Testing performed by : [address] [address] Anion gap 13 2 - 15 mmol/L JORGE Comment:Testing performed by : [address] [address] BUN 28(H) 6 - 25 mg/dL JORGE Comment:Testing performed by : [address] [address] Creatinine 1.50(H) 0.60 - 1.10 mg/dL JORGE Comment:Testing performed by : [address] [address] Glucose 133 70 - 199 mg/dL [facility] Comment: Interpretive Data Fasting glucose >/= 126 [...] was last revised 2022. Testing performed by: [address] [address] Calcium 8.9 8.5 - 10.3 mg/dL JORGE Comment:Testing performed by : [address] [address] Blood 01/31/2024 5:00 AM CDT 01/31/2024 8:23 AM CDT us Notinfile Unknown LAB BLOOD ORDERABLES Final Res ult JORGE 4500 [facility] [place] [address] * (ABNORMAL) eGFR (01/29/2024 6:20 AM CDT) [...] was last reviewed 2021. Testing performed by: [facility], [address] [place] [address]., [address] Blood 01/29/2024 6:20 AM CDT 01/29/2024 8:23 AM CDT us Notinfile Unknown LAB BLOOD ORDERABLES Final Res ult Performing Organization Address [facility] Co de Phone Number JORGE 45[address] [facility] Department [place] [address] * Differential, auto (01/29/2024 6:20 AM CDT) Pathologist [facility] Neutrophil abs 5.2 1.5 - 6.5 K/cumm JORGE Comment:Testing performed by : [address] [address] Imm gran abs 0.1 0.0 - 0.1 K/cumm JORGE Comment:Testing performed by : [address] [address] Lymphocyte abs 1.9 0.8 - 3.3 K/cumm JORGE Comment:Testing performed by : [address] [address] Monocyte abs 0.8 0.2 - 0.8 K/cumm JORGE Comment:Testing performed by : [address] [address] Eosinophil abs 0.2 0.0 - 0.5 K/cumm JORGE Comment:Testing performed by : [address] [address] Basophil abs 0.0 0.0 - 0.1 K/cumm JORGE Comment:Testing performed by : [address] [address] Neutrophil pct 63.2 % [facility] Comment: Interpretive Data Percent cell count reference ranges are not reported, since discordance with absolute values may lead to misinterpretation of CBC data. Current Interpretive Data was last revised on 2017. Testing performed by: [address] [address] Imm gran pct 1.2 % [facility] Comment: Interpretive Data Percent cell count reference ranges are not reported, since discordance with absolute values may lead to misinterpretation of CBC data. Current Interpretive Data was last revised on 2017. Testing performed by: [address] [address] Lymphocyte pct 23.4 % [facility] Comment: Interpretive Data Percent cell count reference ranges are not reported, since discordance with absolute values may lead to misinterpretation of CBC data. Current Interpretive Data was last revised on 2017. Testing performed by: [address] [address] Monocyte pct 9.4 % JORGE EDGE Comment: Interpretive Data Percent cell count reference ranges are not reported, since discordance with absolute values may lead to misinterpretation of CBC data. Current Interpretive Data was last revised on 2017. Testing performed by: [address] [address] Eosinophil pct 2.3 % JORGE EDGE Comment: Interpretive Data Percent cell count reference ranges are not reported, since discordance with absolute values may lead to misinterpretation of CBC data. Current Interpretive Data was last revised on 2017. Testing performed by: [address] [address] Basophil pct 0.5 % JORGE EDGE Comment: Interpretive Data Percent cell count reference ranges are not reported, since discordance with absolute values may lead to misinterpretation of CBC data. Current Interpretive Data was last revised on 2017. Testing performed by: [address] [address] Blood 01/29/2024 6:20 AM CDT 01/29/2024 8:23 AM CDT us Notinfile Unknown LAB BLOOD ORDERABLES Final Res ult JORGE 9369 [facility] [place], [place] [id number] * (ABNORMAL) CBC with auto differential (01/29/2024 6:20 AM CDT) WBC 8.2 3.8 - 9.9 K/cumm JORGE EDGE Comment:Testing performed by : [address] [address] Hgb 8.5(L) 11.9 - 15.5 g/dL JORGE EDGE Comment:Testing performed by : [address] [address] Hct 26.5(L) 35.6 - 45.5 % JORGE EDGE Comment:Testing performed by : [address] [address] Plt 281 150 - 400 K/cumm JORGE EDGE Comment:Testing performed by : [address] [address] MPV 10.6 9.1 - 12.3 fL JORGE EDGE Comment:Testing performed by : [address] [address] RBC 2.86(L) 3.90 - 5.20 M/cumm JORGE EDGE Comment:Testing performed by : [address] [address] MCV 92.7 81.3 - 96.4 fL JORGE EDGE Comment:Testing performed by : [address] [address] MCH 29.7 27.1 - 33.3 pg JORGE EDGE Comment:Testing performed by : [address] [address] MCHC 32.1(L) 32.3 - 35.7 g/dL JORGE EDGE Comment:Testing performed by : [address] [address] [address] RDW CV 14.1 11.1 - 14.9 % JORGE Comment:Testing performed by : [address], [address] RDW SD 46.3 35.7 - 48.1 fL JORGE EDGE Comment:Testing performed by : [address] [address] NRBC abs 0.00 0.00 - 0.01 K/cumm JORGE EDGE Comment:Testing performed by : [address] [address] Blood 01/29/2024 6:20 AM CDT 01/29/2024 8:23 AM CDT us Notinfile Unknown LAB BLOOD ORDERABLES Final Res ult JORGE EDGE [address] [place] [address] Department [place] [address] * (ABNORMAL) CBC without differential (01/29/2024 6:20 AM CDT) [facility] WBC 8.2 3.8 - 9.9 K/cumm JORGE Comment:Testing performed by : [address] [address] Hgb 8.5(L) 11.9 - 15.5 g/dL JORGE Comment:Testing performed by : [address] [address] Hct 26.5(L) 35.6 - 45.5 % JORGE Comment:Testing performed by : [address], [address] Plt 281 150 - 400 K/cumm JORGE Comment:Testing performed by : [address], [address] MPV 10.6 9.1 - 12.3 fL JORGE Comment:Testing performed by : [address], [address] RBC 2.86(L) 3.90 - 5.20 M/cumm JORGE Comment:Testing performed by : [address], [address] MCV 92.7 81.3 - 96.4 fL JORGE Comment:Testing performed by : [address], [address] MCH 29.7 27.1 - 33.3 pg JORGE Comment:Testing performed by : [address], [address] MCHC 32.1(L) 32.3 - 35.7 g/dL JORGE Comment:Testing performed by : [address], [address] RDW CV 14.1 11.1 - 14.9 % JORGE Comment:Testing performed by : [address], [address] RDW SD 46.3 35.7 - 48.1 fL JORGE Comment:Testing performed by : [address], [address] NRBC abs 0.00 0.00 - 0.01 K/cumm JORGE Comment:Testing performed by : [address] [address] Blood 01/29/2024 6:20 AM CDT 01/29/2024 8:23 AM CDT us Notinfile Unknown LAB BLOOD ORDERABLES Final Res ult Performing Organization Address [facility] Co de Phone Number [address] [address] * Magnesium (01/29/2024 6:20 AM CDT) Pathologist [facility] Magnesium 2.0 1.4 - 2.5 mg/dL JORGE Comment:Testing performed by : [address] [address] Blood 01/29/2024 6:20 AM CDT 01/29/2024 8:23 AM CDT us Notinfile Unknown LAB BLOOD ORDERABLES Final Res ult Performing Organization Address [facility] Co de Phone Number [address] [address] * (ABNORMAL) Comprehensive metabolic panel (01/29/2024 6:20 AM CDT) Pathologist [facility] Sodium 140 135 - 145 mmol/L JORGE Comment:Testing performed by : [address] [address] Potassium, pl 4.5 3.3 - 4.9 mmol/L JORGE Comment:Testing performed by : [address] [address] Chloride 105 97 - 110 mmol/L JORGE Comment:Testing performed by : [address] [address] CO2 20(L) 22 - 32 mmol/L JORGE Comment:Testing performed by : [address] [address] Anion gap 15 2 - 15 mmol/L JORGE Comment:Testing performed by : [address] [address] BUN 26(H) 6 - 25 mg/dL [facility] Comment:Testing performed by : [address] [address] Creatinine 1.20(H) 0.60 - 1.10 mg/dL JORGE Comment:Testing performed by : [address] [address] Glucose 75 70 - 199 mg/dL [facility] Comment: Interpretive Data Fasting glucose >/= 126 [...] was last revised 2022. Testing performed by: [address] [address] Calcium 8.9 8.5 - 10.3 mg/dL [facility] Comment:Testing performed by : [address] [address] Bilirubin, total 0.4 0.1 - 1.2 mg/dL [facility] Comment:Testing performed by : [address] [address] Protein, pl 5.6(L) 6.5 - 8.5 g/dL [facility] Comment:Testing performed by : [address] [address] Albumin 3.0(L) 3.5 - 5.0 g/dL [facility] Comment:Testing performed by : [address] [address] Alk phos 99 40 - 130 Units/L JORGE Comment:Testing performed by : [address] [address] ALT 9 7 - 45 Units/L JORGE Comment:Testing performed by : [address] [address] AST 19 10 - 45 Units/L JORGE Comment:Testing performed by : [address] [address] Blood 01/29/2024 6:20 AM CDT 01/29/2024 8:23 AM CDT us Notinfile Unknown LAB BLOOD ORDERABLES Final Res ult JORGE [address] [facility] Department [place] [address] * (ABNORMAL) Basic metabolic panel (01/29/2024 6:20 AM CDT) Sodium 140 135 - 145 mmol/L JORGE Comment:Testing performed by : [address] [address] Potassium, pl 4.5 3.3 - 4.9 mmol/L JORGE Comment:Testing performed by : [address] [address] Chloride 105 97 - 110 mmol/L JORGE Comment:Testing performed by : [address] [address] CO2 20(L) 22 - 32 mmol/L JORGE Comment:Testing performed by : [address] [address] Anion gap 15 2 - 15 mmol/L JORGE Comment:Testing performed by : [address] [address] BUN 26(H) 6 - 25 mg/dL JORGE Comment:Testing performed by : [address] [address] Creatinine 1.20(H) 0.60 - 1.10 mg/dL JORGE Comment:Testing performed by : [address] [address] Glucose 75 70 - 199 mg/dL JORGE [...] was last revised 2022. Testing performed by: [facility], [address] [place] [address]., [address] Calcium 8.9 8.5 - 10.3 mg/dL JORGE EDGE Comment:Testing performed by : [facility], [address] [place] [address]., [address] Blood 01/29/2024 6:20 AM CDT 01/29/2024 8:23 AM CDT us Notinfile Unknown LAB BLOOD ORDERABLES Final Res ult Performing Organization Address City/[facility]/ZIP Co de Phone Number JORGE [address] [facility] Department [place] [address] * Albumin Creatinine Ratio, Urine (10/29/2023 9:30 AM CDT) Microalb, Ur 7.9 0.0 - 22.9 mg/L [facility] Random Urine Creatinine 109.6 mg/dL [facility] Microalb/Creat Ratio 7.2 0.0 - 29.9 mg/g [facility] Urine 10/29/2023 9:30 AM CDT 10/29/2023 11:19 AM CDT Lia Mariano AUTO RESEARCH ENGINEER LAB URINE ORDERABLES Phyllis l Result [facility] CORE LAB [facility] * Dexa Axial Skeleton Bone Density 1 or 2 Site (12/03/2022 10:04 AM CDT) Anatomical Region Laterality Modality Body N/A Radiographic Luba ging Narrative 12/04/2022 1:59 PM CDT Patient Name: Isabelle Figueredo Date of : 1950 Date of scan: 12/03/2022 Bone mineral density was performed on a [email or web address] Discovery Densitometer. ?? Based on machine cross-calibration and precision studies the least significant changes of this densitometer is 0.024 g/cm2 at the spine, 0.020 g/cm2 at the total proximal femur, and 0.014g/cm2 at the forearm. HISTORY: This is a 72 y.o. postmenopausal female with a history of low bone mass, thyroid disease, and vitamin D deficiency. She reports that she has never smoked. She has never used smokeless tobacco. Currently on treatment with vitamin D and thyroid hormone. INDICATIONS: Menopause status, history of prior right wrist fracture, vitamin D deficiency, and history of low bone mass. FINDINGS: BONE MINERAL DENSITY OF THE LUMBAR SPINE Bone Mineral Density (BMD) of the lumbar spine was measured from L1, L3-L4 and the average density was calculated to be 1.044 gm/cm2. This corresponds to a T-score (standard deviations from the mean of young adults) of -0.1. When compared to the previous study of 07/13/2020 there has been no significant changes in bone density. BONE MINERAL DENSITY OF THE PROXIMAL FEMUR Bone Mineral Density (BMD) of the left hip total was found to be 0.834 gm/cm2. This corresponds to a T-score standard deviations from the mean of young adults of -0.9. Femoral neck is 0.610 gm/cm2 with a T-score (standard deviations from the mean of young adults) of -2.2. When compared to the previous study of 07/13/2020 there has been a -0.076 gm/cm (--8.3%) decrease in bone density that is considered significant. BONE MINERAL DENSITY OF THE FOREARM Bone Mineral density (BMD) of the left proximal 1/3 of the radius measures 0.622 gm/cm2. This corresponds to a T-score (standard deviations from the mean of young adults) of -1.2. There is no previous study available for comparison. A forearm bone density study was performed in addition to the routine study because of forearm protocol. ?? SUMMARY: Bone mineral density shows evidence of low bone mass at the proximal femur and forearm and moderately increased fracture risk (Osteopenia). There has been a significant decrease in bone density since previous measurement. L2 excluded from bone mineral density analysis of the lumbar spine because of the presence of an external artifact that can not be removed. Please note that the previous lumbar spine scan has been reanalyzed to also exclude L2. ADDITIONAL COMMENTS: Postmenopausal Women and Men Over 50: Diagnostic criteria: Osteoporosis: BMD at or below -2.5 T-score; Osteopenia (low bone mass): BMD between -1.0 and -2.5 T-score. If the patient has a history of a fragility fracture, a fracture that occurred with trauma equivalent to a fall from a standing position or less, then the diagnosis is osteoporosis regardless of bone density. The history and data sections of the bone mineral density scan were prepared by Eloisa Cabezas(Paloma)(M)(BD) CBDT ??who is accredited by the International Society of Clinical Densitometry. The overall patient assessment and scan interpretation were performed by Payton Murphy MD who is certified by the International Society of Clinical Densitometry. [id number] Merna Bell MD IMG DXA PROCEDURES Final Resu lt from Last 3 Months or Most Recently Relevant to Health Maintenance Insurance MEDICARE [facility] Member Subscriber Plan / Payer (Ef fective 2018-Present) Name:Isabelle Figueredo Relation to Subscriber:Self Name:Isabelle Figueredo Payer ID:[id number] (NAIC) Group ID:[id number] Type:[employer] Address: [address] [place] [address] MEDICARE [facility] Member Subscriber Plan / Payer ( fective 2018-Present) Name:Isabelle Figueredo Relation to Subscriber:Self Name:ISABELLE FIGUEREDO Payer ID:[id number] (NAIC) Group ID:[id number] Type:[employer] Address: [address] [place] [address] MEDICARE MEDICARE [facility] FEDERAL Advance Directives For more information, please contact: [phone] * Full Code (Latest Code Status on File) Date Activated Date Inactivated Comments 01/20/2024 5:39 PM 01/28/2024 5:37 PM * Full Code Date Activated Date Inactivated Comments 11/25/2023 10:11 AM 11/25/2023 6:07 PM * Full Code Date Activated Date Inactivated Comments 11/15/2023 4:07 PM 11/16/2023 7:24 PM Care Teams Leather Carver Relationship Specialty Start Date End Date Elpidio Serrato MD PCP - General Internal Medicine 06/09/18
--- OUTSIDE RECORDS SUMMARY | 2024-04-29 14:04 | XMS_ITS | Encounter Summary ---
Author Organization [facility] Healthcare Address [address] [place] [address] Care Team Providers Care Retail Marketing Manager Name Role Phone Elpidio Serrato MD Primary Care Provider [phone] Encounter Details Date Type Department Care Team (Late st Contact Info) Description 02/02/2024 Orders Only [facility] Interim [phone] Unknown, Notinfile Social History Tobacco Use Types [...] on file Legal Sex Female 3:59 AM ADMINISTRATIVE ASSISTANT Gender Identity Female 05/13/2021 4:21 PM ADMINISTRATIVE ASSISTANT Sexual Orientation Not on file documented as of this encounter Plan of Treatment Not on file documented as of this encounter Procedures Procedure Name Priority Date/Time Associated Diagnosis Comments EGFR Routine 02/02/2024 4:30 AM CDT BASIC METABOLIC PANEL Routine 02/02/2024 4:30 AM CDT documented in this encounter Results * (ABNORMAL) eGFR (02/02/2024 4:30 AM CDT) [...] was last reviewed 2021. Testing performed by: [facility], [address] [place] [address]., [address] Blood 02/02/2024 4:30 AM CDT 02/02/2024 9:37 AM CDT us Notinfile Unknown LAB BLOOD ORDERABLES Final Res ult JORGE EDGE [address] [facility] Department [place] [address] * (ABNORMAL) Basic metabolic panel (02/02/2024 4:30 AM CDT) Pathologist [facility] Sodium 141 135 - 145 mmol/L JORGE EDGE Comment:Testing performed by : [facility], [address] [place] [address], [place]., [address] Potassium, pl 4.2 3.3 - 4.9 mmol/L JORGE Comment:Testing performed by : [address], [place]., [address] Chloride 106 97 - 110 mmol/L JORGE Comment:Testing performed by : [address], [place]., [address] CO2 23 22 - 32 mmol/L [facility] Comment:Testing performed by : [address], [place]., [address] Anion gap 12 2 - 15 mmol/L JORGE Comment:Testing performed by : [address], [place]., [address] BUN 24 6 - 25 mg/dL [facility] Comment:Testing performed by : [address], [place]., [address] Creatinine 1.30(H) 0.60 - 1.10 mg/dL JORGE Comment:Testing performed by : [address], [place]., [address] Glucose 77 70 - 199 mg/dL [facility] Comment: Interpretive Data Fasting glucose >/= 126 [...] was last revised 2022. Testing performed by: [address] [address] Calcium 8.9 8.5 - 10.3 mg/dL [facility] Comment:Testing performed by : [address], [place]., [address] Blood 02/02/2024 4:30 AM CDT 02/02/2024 9:37 AM CDT us Notinfile Unknown LAB BLOOD ORDERABLES Final Res ult [facility] Department [place] [address] documented in this encounter Visit Diagnoses Not [...] Surveillance for admission to 7300. [facility] 01/21/2024 01/21/2024 02/04/2024 3:05 AM C DT documented as of this encounter Care Teams Retail Marketing Manager Relationship Specialty Start Date End Date Elpidio Serrato MD PCP - General Internal Medicine 06/09/18 documented as of this encounter
--- OUTSIDE RECORDS SUMMARY | 2024-04-29 14:04 | XMS_ITS | Encounter Summary ---
Author Organization [facility] Healthcare Address [address] [place] [address] Care Team Providers Care Candlemaking Laborer Name Role Phone Elpidio Serrato MD Primary Care Provider [phone] Encounter Details Date Type Department Care Team (Late st Contact Info) Description 02/05/2024 Orders Only [facility] Inter[facility] [phone] Unknown, Notinfile Social History Tobacco Use Types [...] on file Legal Sex Female 3:59 AM RECORD CHANGER TESTER Gender Identity Female 05/13/2021 4:21 PM RECORD CHANGER TESTER Sexual Orientation Not on file documented as of this encounter Plan of Treatment Not on file documented as of this encounter Procedures Procedure Name Priority Date/Time Associated Diagnosis Comments EGFR Routine 02/05/2024 6:06 AM CDT DIFFERENTIAL AUTO Routine 02/05/2024 6:0 6 AM CDT CBC WITH AUTO DIFFERENTIAL Routine 02/05/2024 6:06 AM CDT BASIC METABOLIC PANEL Routine 02/05/2024 6:06 AM CDT documented in this encounter Results * (ABNORMAL) eGFR (02/05/2024 6:06 AM CDT) eGFR 39(L) >=60 mL/min/1. 73 [...] was last reviewed 2021. Testing performed by: [facility], [address] [place] [address], [place]., [address] Blood 02/05/2024 6:06 AM CDT 02/05/2024 9:48 AM CDT us Notinfile Unknown LAB BLOOD ORDERABLES Final Res ult JORGE [facility] Department [place] [address] * (ABNORMAL) Basic metabolic panel (02/05/2024 6:06 AM CDT) [facility] Signature Sodium 140 135 - 145 mmol/L JORGE Comment:Testing performed by : [address] [address] Potassium, pl 4.6 3.3 - 4.9 mmol/L JORGE Comment:Testing performed by : [address] [address] Chloride 107 97 - 110 mmol/L JORGE Comment:Testing performed by : [address] [address] CO2 22 22 - 32 mmol/L JORGE Comment:Testing performed by : [address], [place]., [address] Anion gap 11 2 - 15 mmol/L JORGE Comment:Testing performed by : [address] [address] BUN 26(H) 6 - 25 mg/dL JORGE Comment:Testing performed by : [address] [address] Creatinine 1.40(H) 0.60 - 1.10 mg/dL JORGE Comment:Testing performed by : [address] [address] Glucose 107 70 - 199 mg/dL JORGE [...] was last revised 2022. Testing performed by: [address] [address] Calcium 9.1 8.5 - 10.3 mg/dL JORGE Comment:Testing performed by : [address] [address] Blood 02/05/2024 6:06 AM CDT 02/05/2024 9:48 AM CDT us Notinfile Unknown LAB BLOOD ORDERABLES Final Res ult JORGE [address] [facility] Department [place] [address] * Differential, auto (02/05/2024 6:06 AM CDT) Neutrophil abs 3.6 1.5 - 6.5 K/cumm JORGE Comment:Testing performed by : [address] [address] Imm gran abs 0.0 0.0 - 0.1 K/cumm JORGE Comment:Testing performed by : [address] [address] Lymphocyte abs 1.6 0.8 - 3.3 K/cumm JORGE Comment:Testing performed by : [address] [address] Monocyte abs 0.6 0.2 - 0.8 K/cumm JORGE Comment:Testing performed by : [address] [address] Eosinophil abs 0.1 0.0 - 0.5 K/cumm JORGE Comment:Testing performed by : [address] [address] Basophil abs 0.0 0.0 - 0.1 K/cumm JORGE Comment:Testing performed by : [address] [address] Neutrophil pct 59.7 % JORGE Comment: Interpretive Data Percent cell count reference ranges are not reported, since discordance with absolute values may lead to misinterpretation of CBC data. Current Interpretive Data was last revised on 2017. Testing performed by: [address] [address] Imm gran pct 0.7 % [facility] Comment: Interpretive Data Percent cell count reference ranges are not reported, since discordance with absolute values may lead to misinterpretation of CBC data. Current Interpretive Data was last revised on 2017. Testing performed by: [address] [address] Lymphocyte pct 26.8 % [facility] Comment: Interpretive Data Percent cell count reference ranges are not reported, since discordance with absolute values may lead to misinterpretation of CBC data. Current Interpretive Data was last revised on 2017. Testing performed by: [address] [address] Monocyte pct 10.1 % [facility] Comment: Interpretive Data Percent cell count reference ranges are not reported, since discordance with absolute values may lead to misinterpretation of CBC data. Current Interpretive Data was last revised on 2017. Testing performed by: [address] [address] Eosinophil pct 2.0 % [facility] Comment: Interpretive Data Percent cell count reference ranges are not reported, since discordance with absolute values may lead to misinterpretation of CBC data. Current Interpretive Data was last revised on 2017. Testing performed by: [address] [address] Basophil pct 0.7 % [facility] Comment: Interpretive Data Percent cell count reference ranges are not reported, since discordance with absolute values may lead to misinterpretation of CBC data. Current Interpretive Data was last revised on 2017. Testing performed by: [address] [address] Blood 02/05/2024 6:06 AM CDT 02/05/2024 9:48 AM CDT us Notinfile Unknown LAB BLOOD ORDERABLES Final Res ult JORGE EDGE [address] [facility] Department [place] [address] * (ABNORMAL) CBC with auto differential (02/05/2024 6:06 AM CDT) [facility] WBC 6.0 3.8 - 9.9 K/cumm JORGE Comment:Testing performed by : [address], [address] Hgb 8.1(L) 11.9 - 15.5 g/dL JORGE Comment:Testing performed by : [address] [address] Hct 26.6(L) 35.6 - 45.5 % JORGE Comment:Testing performed by : [address], [address] Plt 343 150 - 400 K/cumm JORGE Comment:Testing performed by : [address], [address] MPV 10.4 9.1 - 12.3 fL JORGE Comment:Testing performed by : [address], [address] RBC 2.79(L) 3.90 - 5.20 M/cumm JORGE Comment:Testing performed by : [address], [address] MCV 95.3 81.3 - 96.4 fL JORGE Comment:Testing performed by : [address], [address] MCH 29.0 27.1 - 33.3 pg JORGE Comment:Testing performed by : [address], [address] MCHC 30.5(L) 32.3 - 35.7 g/dL JORGE Comment:Testing performed by : [address], [address] RDW CV 14.6 11.1 - 14.9 % JORGE Comment:Testing performed by : [address], [address] RDW SD 50.4(H) 35.7 - 48.1 fL JORGE Comment:Testing performed by : [address], [address] NRBC abs 0.00 0.00 - 0.01 K/cumm JORGE Comment:Testing performed by : [facility], [address] [place] [address]., [address] Blood 02/05/2024 6:06 AM CDT 02/05/2024 9:48 AM CDT us Notinfile Unknown LAB BLOOD ORDERABLES Final Res ult [facility] [address] [facility] Department [place] [address] documented in this encounter Visit Diagnoses Not on filedocumented in this encounter Care Teams Candlemaking Laborer Relationship Specialty Start Date End Date Elpidio Serrato MD PCP - General Internal Medicine 06/09/18 documented as of this encounter
--- OUTSIDE RECORDS SUMMARY | 2024-04-29 14:04 | XMS_ITS | Encounter Summary ---
Author Organization [facility] Address [address] [place] [address] Phone Care Team Providers Care Financial Aids Officer Name Role Phone Elpidio Serrato MD Primary Care Provider [phone] Encounter Details Date Type Department Care Team (Latest Contact Info) Description 03/02/2024 11:40 AM CDT Office Visit [facility] Endocrinology Metabolism and Lipid [address] [facility] 13th [place] [address] [place] [address] Merna Bell MD [address] [facility] [address] [place], [place] [id number] Type 2 diabetes mellitus with hyperlipidemia (HCC) (Primary Dx); Iron deficiency anemia, unspecified iron deficiency anemia type; Heart failure, unspecified HF chronicity, unspecified heart failure type (HCC); 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; Mixed hyperlipidemia; Vitamin B12 deficiency Social History Tobacco Use Types Packs/Day Years [...] on file Legal Sex 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 Gender Identity Female 05/13/2021 4:21 PM CREAM 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 Sexual Orientation Not on file documented as of this encounter Last Filed Vital Signs Vital Sign Reading Time Taken Comments Blood Pressure 109/71 03/02/2024 11:29 AM CDT Pulse 84 03/02/2024 11:29 AM CDT Temperature 36.8 ??C (98.2 ??F) 03/02/2024 11:29 AM C DT Respiratory Rate - - Oxygen Saturation - - Inhaled Oxygen Concentration - - Weight 87.1 kg (192 lb) 03/02/2024 11:29 AM CDT Height 149.9 cm (4' 11 ) 03/02/2024 11:29 AM CDT Body Mass Index 38.78 03/02/2024 11:29 AM CDT documented in this encounter Patient Instructions * Patient Instructions* Merna Bell MD - 03/02/2024 11:40 AM CDT New insulin dose: Lantus, 24 units daily Humalog, 8 units plus sliding scale Labs today at [facility] laboratory, 3rd floor documented in this encounter Ordered Prescriptions Prescription Sig Dispense Quantity Refills Last Filled Start Date End Date cyanocobalamin, vitamin B-12, (Vitamin B-12) 5,000 mcg tablet, sublingualIndicati ons:Vitamin B12 deficiency Place 5,000 mcg under the tongue daily 90 tablet 3 03/02/2024 03/02/2025 documented in this encounter Progress Notes * Merna Bell MD - 03/02/2024 11:40 AM CDT Images from the original note were not included. Endocrinology Outpatient Clinic Note Patient: Isabelle Lutz, 73 y.o. female (: 1950 ) PCP: Elpidio Serrato MD (Referring: Elpidio Serrato MD) CC: diabetes HPI & Subjective 73 y.o. female who returns for follow up of Type 2 Diabetes, Hypertension and Hyperlipidemia. Diabetes was diagnosed at age 45, 1994, duration 28 years. Glucose control has improved in the past 6 years or so, prior to that her A1c was typically >8%, She reports that her peak weight was ~260#, steady decline after starting GLP1-RA. Weight today is 192#. A1c in the past year has been 5.4% - 6.0%. Today it is unreliable 7% due to anemia. Interval Hx: Pt underwent 3-vessel CABG at [facility] on 01/20/2024 for CABG x3 with OROZCO to LAD, SVG to OM, SVG to PDA by Dr. Treviño. She had an episode of atrial fibrillation post- op. She reports that neck fullness (herCP equivalent) is resolved, but that she remains weak, is now walking with a walker and has ROSE andorthopnea. Recent lab work shows significant anemia, not addressed and unknown to the patient. Current therapy Lantus 20 units in morning Humalog 6 units with morning meals. 10 units in evening only if BG is > 150. Ozempic, 1 mg weekly - doses on Saturday. Jardiance 10 mg Daily. CGM Interpretation - Sensor: Dexcom G6 Mobile - Wear time: 99.1% - Indication for placement: Diabetes, insulin use, risk of hypoglycemia - Analysis: Time in range: 32%; 46% high, 21% very high, 1% low. - Interpretation: Glucoses are too high and too variable, particularly during the day. No lows. Pt is aware that glucoses are much higher, has not changed her insulin doses since rehab stay. By way of complications Isabelle Lutz reports no diabetic retinopathy. Last eye exam 08/2023. She had laser to her right eye in May,, for glaucoma, not for diabetes. She had cataract extractions ou, now only requires reading glasses. Glaucoma surgeries were 2019 and August,. She has mildly reduced kidney function, GFR 50 in 06/2022. Isabelle has severe osteoarthritis of her knees, and has had a couple of minor fractures with minimal trauma, right tibial plateau fracture 2018. She has a number of risk factors for osteoporosis, including age, thyroid disease, falls. Her last DXA was in 2013, report unable to open. A repeat DXA was done in July,: Bone Mineral Density (BMD) of the left hip total was found to be 0.910 gm/cm2. This corresponds to a T-score standard deviations from the mean of young adults of -0.3. Femoral neck is 0.708 gm/cm2 with a T-score of -1.3. When compared to the previous study of 05/11/14 there has been a measured 0.037 gm/cm -4.0% decrease which is considered significant. 11/2022 DXA:. -8.3% decline. Treatment recommended. Pt reports Reclast was never received (ordered per Dr Bell). Infusion center did not call to schedule. Will pursue again. She has not tried oral biphosphonate. She has no dental procedures planned. Has not seen a dentist in years. She takes vit D 50,000 weekly on Sat. She reports frequent falls without injury. Last Vit D level 40 in 2020. We will recheck labs today. She takes levothyroxine 88 mcg daily, takes in on an empty stomach and doesn't eat for an hour. Denies change in hair, skin and nails. She tolerates statin well. Reviewed goal of LDL 70 or below with pt. She denies symptoms of neuropathy, including numbness and tingling. She reports thickened toenails and plans to see podiatry for foot care. PMH / PSH Past Medical History: Diagnosis Date Actinic keratosis 07/17/2012 Age-related osteoporosis without current pathological fracture 04/29/2023 Cataract CHF (congestive heart failure) ([facility]) ([facility]) Clavicle enlargement 06/16/2018 Will image to determine etiology. Coronary artery disease Coronary artery disease due to calcified coronary lesion 01/20/2024 Diabetes mellitus ([facility]) Diabetic neuropathy ([facility]) 01/21/2024 Diabetic retinopathy ([facility]) Glaucoma Hypertension Hypothyroidism 11/13/2014 Knee pain 01/04/2015 Leucocytosis 01/22/2024 Multiparity History Of ___ Previous Pregnancies - 7 pregnancies, 2 children - C-sections. (Added by TW Conv) Nonproliferative diabetic retinopathy ([facility]) 11/03/2009 Osteoarthritis of knee 12/16/2007 Personal history of other specified conditions History of chest pain - Stress test negative on 08/01/06 (Added by TW Conv) Primary open angle glaucoma (POAG) of both eyes, moderate stage 06/11/2018 Pseudophakia of both eyes 06/11/2018 Thyroid disease Trigger finger of left thumb 12/09/2017 Type 2 diabetes mellitus with hyperlipidemia (HCC) 12/07/2016 Last A1C 5.9%, without complication Vitamin D deficiency 04/01/2019 Past Surgical History: Procedure Laterality Date CATARACT EXTRACTION Right 06/14/2022 CE/IOL + goniotomy RI APPENDECTOMY unkown dates per pt RI DELIVERY ONLY Section - in 1972 and 1975 (Added by TW Conv) RI TENDON SHEATH INCISION Hand Incision Tendon Sheath Of A Finger - right hand, III finger, 08/20 (Added by TW Conv) Social & Family History Social History Tobacco Use Smoking status: Never Smoker Smokeless tobacco: Never Used Substance and Sexual Activity Alcohol use: Not on file Drug use: Not on file Sexual activity: Not on file Family History Problem Relation Age of Onset [...] Hyperthermia Neg Hx Pseudochol deficiency Neg Hx Review of Systems Twelve point ROS reviewed and negative except as noted in HPI. All other systems negative. Vitals & Physical Exam Blood pressure 109/71, pulse 84, temperature 36.8 ??C (98.2 ??F), temperature source Temporal, height 149.9 cm (4' 11 ), weight 87.1 kg (192 lb). Body mass index is 38.78 kg/m??. Physical Exam Vitals reviewed. Constitutional: Appearance: Normal appearance. Cardiovascular: Rate and Rhythm: Normal rate. Heart sounds: Normal heart sounds. Pulmonary: Effort: Pulmonary effort is normal. Breath sounds: Normal breath sounds. Neurological: Mental Status: He is alert. Psychiatric: Mood and Affect: Mood normal. Behavior: Behavior normal. Pt refuses foot exam today. Data Medications, labs, imaging, and diagnostics independently reviewed in [facility] and commented on below. Allergies: Pseudoephedrine and Valacyclovir HOME MEDICATIONS : acetaminophen ER (TYLENOL) 650 mg 8 hr tablet aspirin 81 mg enteric coated tablet atorvastatin (LIPITOR) 40 mg tablet blood glucose diagnostic (glucose blood) strip brimonidine-timoloL (Combigan) 0.2-0.5 % ophthalmic solution calcium carbonate (TUMS) 500 mg (200 mg elemental calcium) chewable tablet clopidogreL (PLAVIX) 75 mg tablet empagliflozin (Jardiance) 10 mg tablet ergocalciferol (VITAMIN D) 50,000 unit capsule furosemide (LASIX) 20 mg tablet insulin glargine (LANTUS) 100 unit/mL (3 mL) pen for injection insulin lispro (HumaLOG) 100 unit/mL pen for injection latanoprost (XALATAN) 0.005 % ophthalmic solution levothyroxine (SYNTHROID) 88 mcg tablet metoprolol XL (TOPROL-XL) 25 mg extended release tablet oxyCODONE (ROXICODONE) 5 mg immediate release tablet pen needle, diabetic (BD Ultra-Fine Hailee Pen Needle) 32 gauge x 5/32 needle pen needle, diabetic (Pen Needle) 32 gauge x 5/32 needle pen needle, diabetic 32 gauge x 5/32 needle pen needle, diabetic 32 gauge x 5/32 needle semaglutide (OZEMPIC) 2 mg/dose (8 mg/3 mL) pen injector injection senna 8.6 mg tablet Lab Results Component Value Date TSH 0.69 10/29/2023 FREET4 1.38 10/29/2023 Lab Results Component Value Date CHOL 161 03/02/2024 TRIG 209 (H) 03/02/2024 HDL 45 03/02/2024 LDLCALC 81 03/02/2024 LDLDIRECT 92 10/29/2023 Lab Results Component Value Date PTH 71 06/25/2022 25HYDROVITD 40 01/13/2021 Lab Results Component Value Date HGBA1C 7.1 03/02/2024 Assessment & Plan 1. Type 2 diabetes mellitus with hyperlipidemia (HCC) Clarify whether Ozempic is 1 mg or 2mg. -Increase Lantus to 24 units, -Increase mealtime Humalog to 8 units plus SSI. . -Report any low glucose moments to the office. -Please check your glucose level when your CGM alarms low and you do not have symptoms. 2. Acquired hypothyroidism Continue your levothyroxine. Recheck TSH 3. Vitamin D deficiency Please take your Vitamin D with food. 4. Osteoporosis We will likely pursue the Reclast infusion once labs are completed. I will discuss with Dr Bell. 5. Anemia Anemia work-up is ordered. It appears that blood count did not recover after surgery though furtherlosses could be possible. - H/H have improved, hemoglobin now >10 - TSAT is 13%, recommend oral iron supplementation - Vitamin B12 is low, suggest sub-lingual B12 - Follow-up labs in [address] Bell or Lia Mariano in 4 weeks. Orders Placed This Encounter CBC with auto differential Iron profile w/ IBC Vitamin B12 Reticulocyte Count Renal function panel Pro B-type natriuretic peptide Thyroid Function [place] Lipid panel POCT hemoglobin A1c POCT glucose Merna Bell MD school cleaner [facility] Division of Endocrinology, Metabolism, & Lipid Research [address] [place] [address], [place] [address] documented in this encounter Plan of Treatment Not on file documented as of this encounter Procedures Procedure Name Priority Date/Time Associated Diagnosis Comments POCT HEMOGLOBIN A1C Routine 03/02/2024 1 1:35 AM CDT Type 2 diabetes mellitus with hyperlipidemia (HCC) POCT GLUCOSE 29601 Routine 03/02/2024 11 :33 AM CDT Type 2 diabetes mellitus with hyperlipidemia (HCC) documented in this encounter Results * (ABNORMAL) Lipid panel (03/02/2024 12:20 PM [...] revised on 2017. Triglycerides 209(H) <=149 mg/dL [facility] Comment: Interpretive Data Ages < or = [...] revised on 2017. HDL 45 >=40 mg/dL [facility] Comment: Interpretive Data Ages < or = [...] on 2017. LDL, calculated 81 <=129 mg/dL [facility] Comment: Interpretive Data Ages < or = [...] 3. Harshal Koehler et al. VIOLA Cardiol. 2019September 10;5(5):540-548. doi: 10.1001/jamacardio.2020.0013 Current Interpretive Data was last revised on 2024. Non-HDL Cholesterol 116 mg/dL [facility] Comment: Interpretive Data Ages < or = [...] last revised on 2017. Chol/HDL ratio 4 [facility] Blood 03/02/2024 12:2 0 PM CDT 03/02/2024 12:49 PM CDT Merna Bell MD LAB BLOOD ORDERABLES Final Re sult Performing Organization Address City/[facility] Co de Phone Number [facility] Department [place] [employer] [place] [place] [address] * Thyroid Function [place] (03/02/2024 12:20 PM CDT) TSH 1.21 0.30 - 4.20 mcIUnit/mL Blood 03/02/2024 12:2 0 PM CDT 03/02/2024 12:49 PM CDT Merna Bell MD LAB BLOOD ORDERABLES Final Re sult Performing Organization Address [facility] de Phone Number JORGE [facility] Department [place] [address] * (ABNORMAL) Pro B-type natriuretic peptide (03/02/2024 [...] MD LAB BLOOD ORDERABLES Final Re sult [facility] [place] [address] * (ABNORMAL) Renal function panel (03/02/2024 12:20 PM CDT) Sodium 143 135 - 145 mmol/L Potassium, pl 3.3 3.3 - 4.9 mmol/L [facility] Chloride 104 97 - 110 mmol/L [facility] CO2 23 22 - 32 mmol/L [facility] Anion gap 16(H) 2 - 15 mmol/L [facility] BUN 21 6 - 25 mg/dL [facility] Creatinine 1.26(H) 0.60 - 1.10 mg/dL [facility] Glucose 204(H) 70 - 199 mg/dL [facility] Comment: Interpretive Data Fasting glucose >/= 126 [...] 2022. Calcium 9.2 8.5 - 10.3 mg/dL [facility] Phosphorus, pl 4.3 2.3 - 4.5 mg/dL [facility] Albumin 3.8 3.5 - 5.0 g/dL [facility] Blood 03/02/2024 12:2 0 PM CDT 03/02/2024 12:49 PM CDT Merna Bell MD LAB BLOOD ORDERABLES Final Re sult Performing Organization Address [facility] Co de Phone Number [facility] Department [place] [address] * (ABNORMAL) Reticulocyte Count (03/02/2024 12:20 PM CDT) [facility] Signature Retics, absolute 0.058 0.020 - 0.087 M/cumm Retics 1.5 0.4 - 2.9 % [facility] Reticulocyte Hgb 28.7(L) 30.5 - 38.0 pg [facility] Blood 03/02/2024 12:2 0 PM CDT 03/02/2024 12:49 PM CDT Merna Bell MD LAB BLOOD ORDERABLES Final Re sult Performing Organization Address City/[facility]/ZIP Co de Phone Number [facility] Department [place] [address] * Vitamin B12 (03/02/2024 12:20 PM CDT) [facility] Vitamin B12 281 230 - 1,250 pg/mL Blood 03/02/2024 12:2 0 PM CDT 03/02/2024 12:49 PM CDT Merna Bell MD LAB BLOOD ORDERABLES Final Re sult Performing Organization Address City/[facility]/ZIP Co de Phone Number [facility] Department [place] [address] * (ABNORMAL) Iron profile w/ IBC (03/02/2024 12:20 PM CDT) [facility] Iron 31(L) 35 - 145 mcg/dL TIBC 237(L) 250 - 400 mcg/dL [facility] Transferrin saturation 13(L) 20 - 50 % [facility] Blood 03/02/2024 12:2 0 PM CDT 03/02/2024 12:49 PM CDT Merna Bell MD LAB BLOOD ORDERABLES Final Re sult Performing Organization Address City/[facility] Co de Phone Number [facility] Department [place] [address] * (ABNORMAL) CBC with auto differential (03/02/2024 12:20 PM CDT) [facility] WBC 7.8 3.8 - 9.9 K/cumm Hgb 10.7(L) 11.9 - 15.5 g/dL [facility] Hct 33.4(L) 35.6 - 45.5 % [facility] Plt 261 150 - 400 K/cumm [facility] MPV 10.7 9.1 - 12.3 fL [facility] RBC 3.81(L) 3.90 - 5.20 M/cumm [facility] MCV 87.7 81.3 - 96.4 fL [facility] MCH 28.1 27.1 - 33.3 pg [facility] MCHC 32.0(L) 32.3 - 35.7 g/dL [facility] RDW CV 13.1 11.1 - 14.9 % [facility] RDW SD 41.5 35.7 - 48.1 fL [facility] NRBC abs 0.00 0.00 - 0.01 K/cumm [facility] Blood 03/02/2024 12:2 0 PM CDT 03/02/2024 12:49 PM CDT Merna Bell MD LAB BLOOD ORDERABLES Final Re sult [facility] Department [place] [address] * POCT hemoglobin A1c (03/02/2024 11:35 AM CDT) Hemoglobin A1C, POC 7.1 4.0 - 5.6 % Blood 03/02/2024 11:3 5 AM CDT Merna Bell MD POINT OF CARE TEST ORDERABLES Final Result * POCT glucose (03/02/2024 11:33 AM CDT) Glucose Blood, POC 230 mg/dL Blood 03/02/2024 11:3 3 AM CDT Merna Bell MD POINT OF CARE TEST ORDERABLES Final Result documented in this encounter Visit Diagnoses Diagnosis Type 2 diabetes mellitus with hyperlipidemia (HCC)- Primary Iron deficiency anemia, unspecified iron deficiency anemia type Heart failure, unspecified HF chronicity, unspecified heart failure type (HCC) 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
--- OUTSIDE RECORDS SUMMARY | 2024-04-29 14:04 | XMS_ITS | Encounter Summary ---
Author Organization [facility] Address [address] [place] [address] Phone Care Team Providers Care Bench Assembler Operator Name Role Phone Elpidio Serrato MD Primary Care Provider [phone] Reason for Visit * Reason Onset Date Comments PO 02/14/2024 [place] Encounter Details Date Type Department Care Team (Late st Contact Info) Description 02/14/2024 Telephone [facility] Endocrinology Metabolism and Lipid [address] [facility] 13th [place] [address] [place] [address] Martha Boyer RMA PO ([place]) Social History Tobacco Use Types Packs/Day Years [...] on file Legal Sex Female 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 See Media. documented in this encounter Plan of Treatment Not on file documented as of this encounter Visit Diagnoses Not on filedocumented in this encounter Care Teams Bench Assembler Operator Relationship Specialty Start Date End Date Elpidio Serrato MD PCP - General Internal Medicine 06/09/18 documented as of this encounter
--- OUTSIDE RECORDS SUMMARY | 2024-04-29 14:04 | XMS_ITS | Encounter Summary ---
Author Organization [facility] Address [address] [place] [address] Phone Care Team Providers Care Coloring Checker Name Role Phone Elpidio Serrato MD Primary Care Provider [phone] Encounter Details Date Type Department Care Team (Latest Contact Info) Description 03/30/2024 10:30 AM COMPLEX HUMAN RESOURCES MANAGER Office Visit [facility] Endocrinology Metabolism and Lipid [address] [place] [address] [place] [address] Lia Mariano, CARE MANAGEMENT ASSISTANT [address] [place] [address] Type 2 diabetes mellitus with stage 3a chronic kidney disease, with long-term current use of insulin (HCC) (Primary Dx); Hypothyroidism, unspecified type; Anemia, unspecified type; Age-related osteoporosis without current pathological fracture Social History Tobacco Use Types Packs/Day Years [...] on file Legal Sex Female 3:59 AM COMPLEX HUMAN RESOURCES MANAGER Gender Identity Female 05/13/2021 4:21 PM COMPLEX HUMAN RESOURCES MANAGER Sexual Orientation Not on file documented as of this encounter Last Filed Vital Signs Vital Sign Reading Time Taken Comments Blood Pressure 121/74 03/30/2024 10:22 AM COMPLEX HUMAN RESOURCES MANAGER Pulse 78 03/30/2024 10:22 AM COMPLEX HUMAN RESOURCES MANAGER Temperature 36.7 ??C (98.1 ??F) 03/30/2024 10:[address] Respiratory Rate - - Oxygen Saturation - - Inhaled Oxygen Concentration - - Weight 86.3 kg (190 lb 3.2 oz) 03/30/2024 10:22 AM COMPLEX HUMAN RESOURCES MANAGER Height 149.9 cm (4' 11 ) 03/30/2024 10:22 AM COMPLEX HUMAN RESOURCES MANAGER Body Mass Index 38.42 03/30/2024 10:22 AM COMPLEX HUMAN RESOURCES MANAGER documented in this encounter Patient Instructions * Patient Instructions* Lia Mariano NP - 03/30/2024 10:30 AM COMPLEX HUMAN RESOURCES MANAGER 1. Type 2 diabetes mellitus with stage 3a chronic kidney disease, with long-term current use of insulin (HCC) (Primary) Continue medications as below: -Lantus to 24 units, -Humalog to 8 units plus SSI . Tighten your insulin sliding scale: Add 1 units if BG is 150-175 Add 2 units if BG is 176-200 Add 3 units if BG is 201-225 Add 4 units if BG is 226-250 Add 5 units if BG is 251-275 Add 6 units if BG is 276-300 Add 7 units if BG is 301-325 Add 8 units if BG is 326-350 Add 9 units if BG is 351-375 Add 10 units if BG is > 375 -Ozempic 2 mg weekly -Jardiance 10 mg Daily. 2. Hypothyroidism, unspecified type Your thyroid level was normal in recent labs. Continue current levothyroxine. 3. Anemia, unspecified type Repeat CBC in 4 weeks. Continue B12 5000 mcg sublingual until directed otherwise. Begin iron supplements (325mg) daily. Take with food. Avoid taking iron and calcium supplements at the same time. 4. Age-related osteoporosis without current pathological fracture We need to pursue this. Please complete a dental exam. Vitamin d 83 (10/2023) LEX HUMAN RESOURCES MANAGER LEX HUMAN RESOURCES MANAGER documented in this encounter Ordered Prescriptions Prescription Sig Dispense Quantity Refills Last Filled Start Date End Date semaglutide (OZEMPIC) 2 mg/dose (8 mg/3 mL) pen injector injection Inject 2 mg under the skin once a week 9 mL 3 03/30/2024 ergocalciferol (VITAMIN D) 50,000 unit capsule TAKE 1 CAPSULE BY MOUTH ONCE WEEKLY 12 capsule 1 03/30/2024 documented in this encounter Progress Notes * Lia Mariano NP - 03/30/2024 10:30 AM CST Images from the original note were not included. Endocrinology Outpatient Clinic Note Patient: Isabelle uLtz, 74 y.o. female (: 1950 ) PCP: Elpidio [...] after starting GLP1-RA. Weight today is 192#. A1c: 6% (11/2022) -> 5.8% (04/2023) -> 5.9% (10/2023) -> 7.1% (02/2024) Pt underwent 3-vessel CABG at [facility] on 01/20/2024 for CABG x3 with OROZCO [...] not addressed and unknown to the patient. (02/04) H/H 8.1/26.6 -> 10.7/33.4 (03/02/2024) Pt advised to take B12 and iron. She has not yet started her iron or her B12. She will get her B12 OTC as insurance will not cover it. Since last OV: She has not yet started her iron or her B12. She will get her B12 OTC as insurance will not cover it. She completed 2 rounds of cephalexin and reports RLE cellulitis resolved. Current therapy -Lantus to 24 units, -Humalog to 8 units plus SSI 1:50 > 150. Uses 8 up to 10 -Ozempic 2 mg weekly - doses on Saturday. -Jardiance 10 mg Daily. CGM Interpretation - Sensor: Tyros7 Mobile - Wear time: 99.6% - Indication for placement: Diabetes, insulin use, risk of hypoglycemia - Analysis: Time in range: 63%; 27% high; 9% very high; 1% low - Interpretation: These CGM data show significant variability, likely associated with changing dietary patterns and insulin dosing. Specifically, post prandial excursions. Improved since 02/2024. By way of complications Isabelle Lutz reports [...] of LDL 70 or below with pt. 01/2024: 3- vessel CABG at [facility] for CABG x3 with OROZCO to LAD, SVG to OM, SVG to PDA by Dr. Treviño. She denies symptoms of neuropathy, including numbness and tingling. She reports thickened toenails and plans to see podiatry for foot care. PMH / PSH Past Medical History: Diagnosis Date Actinic keratosis 07/17/2012 Age-related osteoporosis without current pathological fracture 04/29/2023 Cataract CHF (congestive heart failure) ([facility]/HCC) (FORM[facility]LY [facility]) Clavicle enlargement 06/16/2018 Will image to determine etiology. Coronary artery disease Coronary artery disease due to calcified coronary lesion 01/20/2024 Diabetes mellitus (HCC) Diabetic neuropathy (HCC) 01/21/2024 Diabetic retinopathy ([facility]) Glaucoma Hypertension Hypothyroidism 11/13/2014 Knee pain 01/04/2015 Leucocytosis 01/22/2024 Multiparity History Of ___ Previous Pregnancies - 7 pregnancies, 2 children - C-sections. (Added by TW Conv) Nonproliferative diabetic retinopathy (HCC) 11/03/2009 Osteoarthritis of knee 12/16/2007 Personal history [...] CATARACT EXTRACTION Right 06/14/2022 CE/IOL + goniotomy IN APPENDECTOMY unkown dates per pt IN DELIVERY ONLY Section - in 1972 and 1975 (Added by Conv) IN TENDON SHEATH INCISION Hand Incision Tendon Sheath Of A Finger - right hand, III finger, 4/10 (Added by TW Conv) Social & Family [...] negative. Vitals & Physical Exam Blood pressure 121/74, pulse 78, temperature 36.7 ??C (98.1 ??F), temperature source Temporal, height 149.9 cm (4' 11 ), weight 86.3 kg (190 lb 3.2 oz). Body mass index is 38.42 kg/m??. Physical Exam Vitals reviewed. Constitutional: Appearance: Normal appearance. Cardiovascular: Rate and Rhythm: Normal rate. Heart sounds: Normal heart sounds. Pulmonary: Effort: Pulmonary effort is normal. Breath sounds: Normal breath sounds. Neurological: Mental Status: alert. Psychiatric: Mood and Affect: Mood normal. Behavior: Behavior normal. Data Medications, labs, imaging, and diagnostics independently reviewed in [facility] and commented on below. Allergies: Pseudoephedrine and Valacyclovir HOME MEDICATIONS : acetaminophen ER (TYLENOL) 650 mg 8 hr tablet aspirin 81 mg enteric coated tablet atorvastatin (LIPITOR) 40 mg tablet blood glucose diagnostic (glucose blood) strip brimonidine-timoloL (Combigan) 0.2-0.5 % ophthalmic solution calcium carbonate (TUMS) 500 mg (200 mg elemental calcium) chewable tablet clopidogreL (PLAVIX) 75 mg tablet cyanocobalamin, vitamin B-12, (Vitamin B-12) 5,000 mcg tablet, sublingual empagliflozin (Jardiance) 10 mg tablet ergocalciferol (VITAMIN [...] tablet Lab Results Component Value Date TSH 1.21 03/02/2024 FREET4 1.38 10/29/2023 Lab Results Component Value Date CHOL 161 03/02/2024 TRIG 209 (H) 03/02/2024 HDL 45 03/02/2024 LDLCALC 81 03/02/2024 LDLDIRECT 92 10/29/2023 Lab Results Component Value Date PTH 71 06/25/2022 25HYDROVITD 40 01/13/2021 Lab Results Component Value Date HGBA1C 7.1 03/02/2024 Assessment & Plan 1. Type 2 diabetes mellitus with stage 3a chronic kidney disease, with long-term current use of insulin (HCC) (Primary) Continue medications as below: -Lantus to 24 units, -Humalog to 8 units plus SSI . Tighten your insulin sliding scale: Add 1 units if BG is 150-175 Add 2 units if BG is 176-200 Add 3 units if BG is 201-225 Add 4 units if BG is 226-250 Add 5 units if BG is 251-275 Add 6 units if BG is 276-300 Add 7 units if BG is 301-325 Add 8 units if BG is 326-350 Add 9 units if BG is 351-375 Add 10 units if BG is > 375 -Ozempic 2 mg weekly -Jardiance 10 mg Daily. 2. Hypothyroidism, unspecified type Your thyroid level was normal in recent labs. Continue current levothyroxine. 3. Anemia, unspecified type Repeat CBC in 4 weeks. Continue B12 5000 mcg sublingual until directed otherwise. Begin iron supplements (325mg) daily. Take with food. Avoid taking iron and calcium supplements at the same time. 4. Age-related osteoporosis without current pathological fracture We need to pursue this. Please complete a dental exam. Vitamin d 83 (10/2023) [facility] Division of Endocrinology, Metabolism, & Lipid Research [address] [place] [address] [address], [place] [address] LEX HUMAN RESOURCES MANAGER documented in this encounter Plan of Treatment Not on file documented as of this encounter Procedures Procedure Name Priority Date/Time Associated Diagnosis Comments CBC WITH AUTO DIFFERENTIAL Routine 04/27/2024 9:24 AM COMPLEX HUMAN RESOURCES MANAGER Anemia, unspecified type documented in this encounter Results * (ABNORMAL) CBC with auto differential (04/27/2024 9:24 AM COMPLEX HUMAN RESOURCES MANAGER) WBC 7.8 3.8 - 10.8 Thousand/u L [facility] RBC, POC 4.16 3.80 - 5.10 Million/uL [facility] Hgb 11.6(L) 11.7 - 15.5 g/dL [facility] Hct 37.7 35.0 - 45.0 % [facility] MCV 90.6 80.0 - 100.0 fL [facility] MCH 27.9 27.0 - 33.0 pg [facility] MCHC 30.8(L) 32.0 - 36.0 g/dL [facility] Comment: For adults, a slight decrease in the calculated MCHC value (in the range of 30 to 32 g/dL) is most likely not clinically significant; however, it should be interpreted with caution in correlation with other red cell parameters and the patient's clinical condition. Rdw 13.7 11.0 - 15.0 % [facility] Platelets 268 140 - 400 Thousand/u L [facility] MPV 11.0 7.5 - 12.5 fL [...] [facility] Eosinophils 1.8 % [facility] Basophils 0.6 % [facility] Blood 04/27/2024 9:24 AM COMPLEX HUMAN RESOURCES MANAGER 04/27/2024 9:25 AM COMPLEX HUMAN RESOURCES MANAGER Lia Mariano CARE MANAGEMENT ASSISTANT LAB BLOOD ORDERABLES Phyllis l Result [address]SE [address] [place] [address] documented in this encounter Visit Diagnoses Diagnosis Type 2 diabetes mellitus with stage 3a chronic kidney disease, with long-term current use of insulin ([facility])- Primary Hypothyroidism, unspecified type Anemia, unspecified type Age-related osteoporosis without current pathological fracture documented in this encounter Discontinued Medications Medication Sig Discontinue Reason Start Date End Da te ergocalciferol (VITAMIN D) 50,000 unit capsule TAKE 1 CAPSULE BY MOUTH ONCE WEEKLY Reorder 08/26/2023 03/30/2024 semaglutide (OZEMPIC) 2 mg/dose (8 mg/3 mL) pen injector injection Inject 2 mg under the skin once a week Reorder 10/29/2023 03/30/2024 documented as of this encounter Care Teams Coloring Checker Relationship Specialty Start Date End Date Elpidio Serrato MD PCP - General Internal Medicine 06/09/18 documented as of this encounter
--- OUTSIDE RECORDS SUMMARY | 2024-04-29 14:04 | XMS_ITS | Clinical Summary ---
Author Organization [facility] Address [address] [place] [address] Care Team Providers Care Grader Meat Name Role Phone Elpidio Serrato MD Primary Care Provider [phone] Allergies Active Allergy Reactions Criticality Noted Date [...] (HCC) Use 4X daily 300 each 3 023 [...] daily 90 tablet 3 024 2024 Active Additional Information Patient taking differently:40 [...] mouth daily 90 tablet/danna w tab 3 024 2024 Active Additional Information Patient taking differently:500 [...] needle, diabetic (Pen Needle) 32 gauge x 532 needle Use as directed once a day. [...] tablet (75 mg total) by mouth daily 2023 Discontinued(R eoelieser) Active Problems Problem Noted Date Diagnosed Date Anemia 2024 AF (paroxysmal atrial fibrillation) (CMS/HCC) Assessment & Plan (01/27/2024 1:07 PM CDT): Short episode of AF with RVR 9/14 - converted with 1 amio bolus and [...] cut at dc Coronary artery disease involving [place] heart 0 12/12/2023 Encounter for preprocedural cardiovascular exami [facility] 12/12/2023 ROSE (dyspnea on exertion) 11/19/2023 Stable [...] D2. Assessment & Plan (06/13/2020 1:43 PM ACCOUNT ADVISOR): Check 25OHD, especially if considering therapy for osteoporosis. Assessment & Plan (02/08/2020 3:28 PM CDT): Consider bone DXA with next visit in person, if possible. Assessment & Plan (08/24/2019 10:11 AM CDT): Continue vitamin D supplementation, may be important if you encounter COVID-19. Stay home but get some sun when it comes out. Assessment & Plan (04/01/2019 11:31 AM ACCOUNT ADVISOR): Levels normal 06/2018. Continue weekly ergocalciferol Clavicle enlargement 06/16/2018 Overview (06/16/2018): Will image to determine etiology. Assessment & Plan (06/16/2018 9:20 PM ACCOUNT ADVISOR): X-ray shows osteoarthritis with osteophytes. Odd, but does not need follow-up. Primary open angle glaucoma (POAG) of both eyes, moderate stage 06/11/2018 Assessment & Plan (07/15/2023 8:54 AM ACCOUNT ADVISOR): Doing well without concerns IOP at goal [...] concerns. Assessment & Plan (06/22/2022 7:41 AM ACCOUNT ADVISOR): POW1 EXTRACTION CATARACT - PHACOEMULSIFICATION AND LENS [...] OS Assessment & Plan (06/15/2022 8:25 AM ACCOUNT ADVISOR): POD1 EXTRACTION CATARACT - PHACOEMULSIFICATION AND LENS [...] concerns. Assessment & Plan (06/04/2022 2:51 PM ACCOUNT ADVISOR): Progression of field - plan for goniotomy at time of surgery Continue drops at this time Assessment & Plan (05/19/2021 4:27 PM ACCOUNT ADVISOR): POAG OU Mild HVF with progression of [...] OU Assessment & Plan (04/25/2020 8:08 AM ACCOUNT ADVISOR): POAG, former Dr. Thomas patient Mild OU [...] weeks. Assessment & Plan (07/03/2019 9:12 AM ACCOUNT ADVISOR): Patient returns S/P SLT OD -05/28/2019 -IOP Today by Ta 24/04 by tonopen. -A1C was around 7% at last visit on March 31. RTC 5 months for intraocular pressure (IOP) by applanation and HANS Drops: Combigan BID OU Latanoprost QHS OD Assessment & Plan (04/23/2019 10:48 AM ACCOUNT ADVISOR): Patient returns for 6 months follow-up with [...] 06/11/2018 Assessment & Plan (07/15/2023 8:54 AM ACCOUNT ADVISOR): Lenses doing well Assessment & Plan (06/22/2022 7:41 AM ACCOUNT ADVISOR): The patient understands the risks, benefits, alternatives [...] eye. Assessment & Plan (06/04/2022 2:52 PM ACCOUNT ADVISOR): NS OU The patient understands the risks, [...] eye. Assessment & Plan (05/19/2021 4:27 PM ACCOUNT ADVISOR): Now becoming VS Plan for CEIOL\goniotomy in [...] Master Assessment & Plan (04/16/2020 8:17 AM ACCOUNT ADVISOR): Nearing visual significance May need CEIOL/MIGS soon, but monitor for now Assessment & Plan (01/25/2020 8:46 AM CDT): Nearing visual significance May need CEIOL/MIGS soon, but monitor for now Assessment & Plan (12/05/2019 7:42 PM CDT): Pt ed. Defer cataract extraction (CE) until signs/sx indicate. Assessment & Plan (07/03/2019 9:13 AM ACCOUNT ADVISOR): NVS. Continue to Monitor. I am scribing in the presence of Dr. Thomas on 07/03/2019, Sandy Aguirre, OSC. I have examined the patient and agree with the resident/fellow's findings and plan as documented. Niranjan Thomas MD Assessment & Plan (04/23/2019 10:45 AM ACCOUNT ADVISOR): HALLEY Joseph scribing for and in the [...] calories. Assessment & Plan (06/13/2020 1:43 PM ACCOUNT ADVISOR): Glucose control could not be fully assessed [...] doses. Assessment & Plan (04/01/2019 11:28 AM ACCOUNT ADVISOR): Diabetes is worsening. Increase Lantus to 50 [...] months. Assessment & Plan (06/16/2018 9:16 PM ACCOUNT ADVISOR): Diabetes is improving with treatment. Continue current [...] recheck. Assessment & Plan (06/13/2020 1:39 PM ACCOUNT ADVISOR): Has been well controlled on low dose levothyroxine, will check TSH. Assessment & Plan (02/08/2020 3:27 PM CDT): TSH is perfect, no changes to levothyroxine dose. Assessment & Plan (04/01/2019 11:27 AM ACCOUNT ADVISOR): Continue current replacement, 88 mcg. Will check TSH today Assessment & Plan (06/16/2018 9:17 PM ACCOUNT ADVISOR): Thyroid functions are normal on current replacement, 88 mcg. No changes. Actinic keratosis 07/17/2012 Osteoarthritis of knee 12/16/2007 Assessment & Plan (06/16/2018 9:19 PM ACCOUNT ADVISOR): Follow-up with human resources specialist. Hyperlipidemia 07/21/2006 Assessment & Plan (11/15/2023 [...] months. Assessment & Plan (06/13/2020 1:44 PM ACCOUNT ADVISOR): Last LDL was 90, but diabetes therapies have changed. Will recheck. Assessment & Plan (02/08/2020 3:26 PM CDT): LDL is at target, continue simvastatin. Assessment & Plan (04/01/2019 11:29 AM ACCOUNT ADVISOR): Lipid abnormalities are improving with treatment. LDL is 47 in 06/2018. Continue simvastatin 40 mg daily Lipids will be reassessed in 6 months. Assessment & Plan (06/16/2018 9:17 PM ACCOUNT ADVISOR): Lipid abnormalities are improving with treatment. LDL is 97 mg/dl. The patient was referred to the ivf embryologist. and Pharmacotherapy as ordered. Lipids will be reassessed in 6 months. Obesity 07/21/2006 Assessment & Plan (01/25/2024 12:48 PM CDT): - BMI 40.32 on admission - provide bariatric equipment Assessment & Plan (04/01/2019 11:30 AM ACCOUNT ADVISOR): Obesity is unchanged. She is less active after care home. Discussed the patient's BMI. The BMI [...] Pharmacotherapy as ordered. Restructure the plan after care home in November. Hypertension 02/19/2006 Assessment & [...] appointment. Assessment & Plan (06/16/2018 9:18 PM ACCOUNT ADVISOR): Hypertension is worsening, BP has increased to [...] 0 06/11/2018 Nonproliferative diabetic retinopathy 11/03/2009 12/05/2019 Encounters Date Type Department Care Team Description 04/21/2024 Telephone [facility] Cardiology [address] [place] [address] [place] [address] Fabi Collier NP 03/30/2024 10:30 AM ACCOUNT ADVISOR Office Visit [facility] Endocrinology Metabolism and Lipid [address]th [place] [address] [place] [address] Lia Mariano NP Type 2 diabetes mellitus with stage 3a chronic kidney disease, with long-term current use of insulin (HCC) (Primary Dx); Hypothyroidism, unspecified type; Anemia, unspecified type; Age-related osteoporosis without current pathological fracture 03/02/2024 3:15 PM CDT Lab [facility] [address] [place] [address] Mixed hyperlipidemia; 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; Heart failure, unspecified HF chronicity, unspecified heart failure type (HCC); Type 2 diabetes mellitus with hyperlipidemia (HCC); Iron deficiency anemia, unspecified iron deficiency anemia type 03/02/2024 11:40 AM CDT Office Visit [facility] Endocrinology Metabolism and Lipid [address] [place] [address] [address]th [place] [address] [place] [address] Merna Bell MD Type 2 diabetes mellitus with hyperlipidemia (HCC) (Primary Dx); Iron deficiency anemia, unspecified iron deficiency anemia type; Heart failure, unspecified HF chronicity, unspecified heart failure type (HCC); 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; Mixed hyperlipidemia; Vitamin B12 deficiency 02/26/2024 12:00 PM CDT Office Visit [facility] Cardiothoracic Surgery [address] [place] [address] [address]th [address] Room [address] [address] Columba Leslie NP Coronary artery disease involving [place] heart, unspecified vessel or lesion type, unspecified whether angina present (Primary Dx) 02/26/2024 11:36 AM CDT - 02/26/2024 11:59 PM CDT Hospital Encounter [facility] ([facility] [address] [place] [address] Coronary artery disease involving [place] heart, unspecified vessel or lesion type, unspecified whether angina present Discharge Disposition: Discharge to home or self care 02/24/2024 Orders Only [facility] Cardiology [address] [place] [address] [address] [place] [address] [place] [address] Fabi Collier NP CAD, multiple vessel (Primary Dx); Congestive heart failure, unspecified HF chronicity, unspecified heart failure type (HCC); ROSE (dyspnea on exertion); Abnormal stress echocardiogram; Hx of CABG 02/19/2024 Telephone [facility] Cardiology [address] [place] [address] [address] [place] [address] [place] [address] Fabi Collier NP 02/14/2024 11:30 AM CDT Office Visit [facility] Cardiology [address] [place] [address] 8th [place] [address] [place] [phone] Fabi Collier NP Dyspnea on exertion (Primary Dx); Congestive heart failure, unspecified HF chronicity, unspecified heart failure type (HCC); CAD, multiple vessel; AF (paroxysmal atrial fibrillation) (CMS/HCC) (HCC) 02/14/2024 Telephone [facility] Endocrinology Metabolism and Lipid [address] [place] [address] [place] [address] Martha Boyer RMA PO ([place]) 02/05/2024 Orders Only [facility] [phone] Unknown, Notinfile 02/03/2024 Orders Only [facility] [phone] Unknown, Notinfile 02/02/2024 Orders Only [facility] [phone] Unknown, Notinfile 02/01/2024 Orders Only [facility] [phone] Unknown, Notinfile 01/31/2024 Orders Only [facility] [phone] Unknown, Notinfile 01/29/2024 Orders Only [facility] [phone] Unknown, Notinfile from Last 3 Months Immunizations Name Administration Dates Next Due Influenza, Trivalent, High D ose, Split, Preservative Free, Intramuscular 03/06/2019 Influenza, Unspecified 02/16/2020,03/06/2019 Pneumococcal Conjugate PCV 13 08/12/2018 Pneumococcal Polysaccharide PPV23 04/29/2017 ZOSTER LIVE 04/29/2017 Surgical History Surgery Date Site/Laterality Comments CA DELIVERY ONLY Section - in 1972 and 1975 (Added by TW Conv) CA APPENDECTOMY unkown dates per pt CA TENDON SHEATH INCISION Hand Incision Tendon Sheath Of A Finger - right hand, III finger, 08/20 (Added by TW Conv) CATARACT EXTRACTION 06/14/2022 Right CE/IOL + goniotomy Medical History Medical History Date Comments Multiparity History Of ___ P revious Pregnancies - 7 pregnancies, 2 children - C-sections. (Added by TW Conv) Personal history of other sp ecified conditions History of chest pain - Stre ss test negative on 08/01/06 (Added by TW Conv) Cataract Glaucoma Diabetes mellitus (HCC) Diabetic retinopathy (HCC) Nonproliferative diabetic re tinopathy ([facility]) 11/03/2009 Coronary artery disease Hypertension CHF (congestive heart failur e) ([facility]/HCC) ([facility]) Thyroid disease Coronary artery disease due to calcified coronary lesion 01/20/2024 Vitamin D deficiency 04/01/2019 Type 2 diabetes mellitus wit h hyperlipidemia ([facility]) 12/07/2016 Last A1C 5.9%, without compl ication Trigger finger of left thumb 12/09/2017 Pseudophakia of both eyes 06/11/2018 Primary open angle glaucoma (POAG) of both eyes, moderate stage 06/11/2018 Osteoarthritis of knee 12/16/2007 Knee pain 01/04/2015 Hypothyroidism 11/13/2014 Clavicle enlargement 06/16/2018 Will image to determine etiology. Age-related osteoporosis wit hout current pathological fracture 04/29/2023 Actinic keratosis 07/17/2012 Diabetic neuropathy ([facility]) 01/21/2024 Leucocytosis 01/22/2024 Family History Medical History Relation Name Comments Anesthesia problems Mother coded du ring unknown dental procedure but lived Heart attack Mother Heart disease Other 1 Heart Disease - mother (Added by TW Conv) Hypertension Other 2 Hypertension - mother (Added by TW Conv) Thyroid disease Other 3 Thyroid Diso rder - mother (Added by TW Conv) Diabetes type II Other 4 Type II Kathy betes Mellitus - mother (Added by TW Conv) Blood Clot Sister Malcalvin Hyperthermia Neg Hx Pseudochol deficiency Neg Hx Relation Name Status Comments Mother Other 1 Other 2 Other 3 Other 4 Sister Social History Tobacco Use Types Packs/Day [...] on file Legal Sex Female 3:59 AM ACCOUNT ADVISOR Gender Identity Female 05/13/2021 4:21 PM ACCOUNT ADVISOR Sexual Orientation Not on file Obstetrics History Last Filed Vital Signs Vital Sign Reading Time Taken Comments Blood Pressure 121/74 03/30/2024 10:22 AM ACCOUNT ADVISOR Pulse 78 03/30/2024 10:22 AM ACCOUNT ADVISOR Temperature 36.7 ??C (98.1 ??F) 03/30/2024 10:[address] Respiratory Rate 18 01/28/2024 10:39 AM CDT Oxygen Saturation 100% 02/26/2024 12:10 PM CDT Inhaled Oxygen Concentration - - Weight 86.3 kg (190 lb 3.2 oz) 03/30/2024 10:22 AM ACCOUNT ADVISOR Height 149.9 cm (4' 11 ) 03/30/2024 10:22 AM ACCOUNT ADVISOR Body Mass Index 38.42 03/30/2024 10:22 AM ACCOUNT ADVISOR Plan of Treatment Health Maintenance Due Date Last Done Comments Colon Cancer Screening-Colonoscopy 1950 Depression Screening 1950 Hepatitis C Screening 1950 Foot Exam 1950 DTaP/Tdap/Td Vaccine (1 - Tdap) 1960 Hepatitis B Screening 1967 Well Visit 65+ 2014 Zoster Vaccine (2 of 3) 06/24/2017 04/29/2017 Influenza Vaccine (#1) 2024 , 03/06/2019, 03/06/2019 Dilated Eye Exam 07/14/2024 07/15/2023, , 04/23/2019, Additional history exists Hemoglobin A1C 08/31/2024 03/02/2024, 10/11, 04/29/2023, Additional history exists Albumin Creatinine Ratio, Urine 10/28/2024 10/29/2023, 04/29/2023, 07/13/2020, Additional history exists Osteoporosis Screening-Bone Density Scan 12/03/2024 12/03/2022, 12/03/2022, 07/13/2020, Additional history exists Fall Risk Assessment 01/27/2025 01/28/2024 Lipid Panel 03/02/2025 03/02/2024, 10/11, 04/29/2023, Additional history exists eGFR 03/02/2025 03/02/2024, 01/12, 02/03/2024, Additional history exists Pneumococcal vaccine 65+ Completed 08/12/2018, 04/12 Medical Devices Implanted Type Area Residential Program Director Device Identifier Shelf Expiration Date Model / Serial / Lot [employer] Lens Iol Posterior Biconvex Optic Single Piece Envista 6.0x12.5 +18.0d Hydrophobic Acrylic [id number] - [id number] - [id number] Implanted:Qty: 1 on 06/14/2022 by Makayla Ramos MD at [facility] Lens Right: Lens [employer] [id number] 10/10/2024 [id number] / [id number] / [employer] Lens Iol Posterior Biconvex Optic Single Piece Envista 6.0x12.5 +18.0d Hydrophobic Acrylic [id number] - [id number] - [id number] Implanted:Qty: 1 on 08/16/2022 by Makayla Ramos MD at [facility] Lens Left: Eye [employer] [id number] 05/12/2025 [id number] / [id number] / [id number] [employer] Sternalock Hernan 2.4mm 16mm Self Drill Lock Sternum Cancellous 73-2416 - [id number] Implanted:Qty: 4 on 01/20/2024 by Jeff Alaniz MD at [facility] N/A: Sternum [employer] 73-2416 / / Trial [id number] Achv Atriclip Tony Exclusion System [id number] - [id number] Implanted:Qty: 1 on 01/20/2024 by Stan Treviño MD at [facility] N/A: Heart Atricure ACHV40 / / Description:clinical trial i tem [id number] ACHV ATRICLIP TONY EXCLUSION SYSTEM [id number] [employer] Suture [place] Cor Knot Pre Loaded Fastener Device Micro Titanium 0 77732 - S0 - [id number] Implanted:Qty: 1 on 01/20/2024 by Stan Treviño MD at [facility] N/A: Heart [employer] [id number] 06/12/2026 88168 / 0 / [id number] [employer] Suture [place] Cor Knot Pre Loaded Fastener Device Micro Titanium 0 60658 - S0 - [id number] Implanted:Qty: 1 on 01/20/2024 by Stan Treviño MD at [facility] N/A: Heart [employer] [id number] 09/09/2026 65535 / 0 / [id number] [employer] Suture [place] Cor Knot Pre Loaded Fastener Device Micro Titanium 0 08084 - S0 - [id number] Implanted:Qty: 1 on 01/20/2024 by Stan Treviño MD at [facility] N/A: Heart [employer] [id number] 07/10/2026 85392 / 0 / [id number] [employer] Suture [place] Cor Knot Pre Loaded Fastener Device Micro Titanium 0 75674 - S0 - [id number] Implanted:Qty: 1 on 01/20/2024 by Stan Treviño MD at [facility] N/A: Heart [employer] [id number] 10/10/2026 02316 / 0 / [id number] Atricure Device Left Atrial Appendage Malleable Shaft 180 Degree Rotation White Atriclip Flex V 40mm Flexv40 Achv40 - [id number] Implanted:Qty: 1 on 01/20/2024 by Stan Treviño MD at [facility] N/A: Heart [employer]ric[employer] 07/11/2026 [id number] / / [id number] Description:LEFT ATRIAL APPE NDAGE S/B clinical trial item [id number] ACHV ATRICLIP TONY EXCLUSION SYSTEM [id number] [employer] Sternalock 360 Sternal Closure 74-0004 - [id number] Implanted:Qty: 1 on 01/20/2024 by Jeff Alaniz MD at [facility] N/A: Sternum [employer] [id number] 11/04/2028 74-0004 / / [id number] [employer] Sternalock Hernan 2.4mm 14mm Self Drill Lock Sternum Cancellous 73-2414 - [id number] Implanted:Qty: 12 on 01/20/2024 by Jeff Alaniz MD at [facility] N/A: Sternum [employer] 73-2414 / / Procedures Procedure Name Priority Date/Time Associated Diagnosis Comments CBC WITH AUTO DIFFERENTIAL Routine 04/27/2024 9:24 AM ACCOUNT ADVISOR Anemia, unspecified type EGFR Routine 03/02/2024 12:20 [...] diabetes mellitus with hyperlipidemia (HCC) POCT GLUCOSE 15338 Routine 03/02/2024 11:33 AM CDT Type 2 diabetes mellitus with hyperlipidemia (HCC) XR CHEST PA LATERAL 2 VIEWS Schedule Routine, Read Routine (OP Routine) 02/26/2024 11:42 AM CDT Coronary artery disease involving [place] heart, unspecified vessel or lesion type, [...] CBC with auto differential (04/27/2024 9:24 AM ACCOUNT ADVISOR) WBC 7.8 3.8 - 10.8 Thousand/u L [facility] RBC, POC 4.16 3.80 - 5.10 Million/uL [facility] Hgb 11.6(L) 11.7 - 15.5 g/dL [...] - 400 Thousand/u L [facility] MPV 11.0 7.5 - 12.5 fL [facility] Neutrophils, abs 4,828 1,500 - 7,800 cells/uL [facility] Lymphocytes, abs 2,090 850 - 3,900 [...] [facility] t Adrian Blood 04/27/2024 9:24 AM ACCOUNT ADVISOR 04/27/2024 9:25 AM ACCOUNT ADVISOR us Lia Mariano BUSINESS CENTER REPRESENTATIVE LAB BLOOD ORDERABLES Phyllis alanis Result JOSE C Campbell [address] [place] [address] * (ABNORMAL) eGFR (03/02/2024 12:20 PM CDT) [...] MD LAB BLOOD ORDERABLES Final Re sult [facility] Department [place] [address] * Differential, auto (03/02/2024 12:20 PM CDT) Neutrophil abs 4.9 1.5 - 6.5 K/cumm Imm gran abs 0.0 0.0 - 0.1 K/cumm [facility] Lymphocyte abs 2.1 0.8 - 3.3 K/cumm [facility] Monocyte abs 0.6 0.2 - 0.8 K/cumm [facility] Eosinophil abs 0.1 0.0 - 0.5 K/cumm [facility] Basophil abs 0.0 0.0 - 0.1 K/cumm [facility] Neutrophil pct 62.9 % [facility] Comment: Interpretive Data Percent cell count reference ranges are not reported, since discordance with absolute values may lead to misinterpretation of CBC data. Current Interpretive Data was last revised on 2017. Imm gran pct 0.3 % [facility] Comment: Interpretive Data Percent cell count reference ranges are not reported, since discordance with absolute values may lead to misinterpretation of CBC data. Current Interpretive Data was last revised on 2017. Lymphocyte pct 27.0 % [facility] Comment: Interpretive Data Percent cell count reference ranges are not reported, since discordance with absolute values may lead to misinterpretation of CBC data. Current Interpretive Data was last revised on 2017. Monocyte pct 7.9 % [facility] Comment: Interpretive Data Percent cell count reference ranges are not reported, since discordance with absolute values may lead to misinterpretation of CBC data. Current Interpretive Data was last revised on 2017. Eosinophil pct 1.4 % [facility] Comment: Interpretive Data Percent cell count reference ranges are not reported, since discordance with absolute values may lead to misinterpretation of CBC data. Current Interpretive Data was last revised on 2017. Basophil pct 0.5 % [facility] Comment: Interpretive Data Percent cell count reference ranges are not reported, since discordance with absolute values may lead to misinterpretation of CBC data. Current Interpretive Data was last revised on 2017. Blood 03/02/2024 12:2 0 PM CDT 03/02/2024 12:49 PM CDT us Merna Bell MD LAB BLOOD ORDERABLES Final Re sult [facility] Department [place] [address] * (ABNORMAL) Pro B-type natriuretic peptide (03/02/2024 [...] ORDERABLES Final Re sult Performing Organization Address [facility]/ZIP Co de Phone Number [facility] [place] [address] * Thyroid Function [place] (03/02/2024 12:20 PM CDT) Pathologist [facility] TSH 1.21 0.30 - 4.20 mcIUnit/mL Blood 03/02/2024 12:2 0 PM CDT 03/02/2024 12:49 PM CDT Merna Bell MD LAB BLOOD ORDERABLES Final Re sult Performing Organization Address [facility] Co de Phone Number [facility] Department [place] [address] * (ABNORMAL) Iron profile w/ IBC (03/02/2024 12:20 PM CDT) [facility] Iron 31(L) 35 - 145 mcg/dL TIBC 237(L) 250 - 400 mcg/dL [facility] Transferrin saturation 13(L) 20 - 50 % [facility] Blood 03/02/2024 12:2 0 PM CDT 03/02/2024 12:49 PM CDT Merna Bell MD LAB BLOOD ORDERABLES Final Re sult Performing Organization Address [facility]/ZIP Co de Phone Number [facility] Department [place] [address] * (ABNORMAL) CBC with auto differential (03/02/2024 12:20 PM CDT) [facility] WBC 7.8 3.8 - 9.9 K/cumm Hgb 10.7(L) 11.9 - 15.5 g/dL [facility] Hct 33.4(L) 35.6 - 45.5 % [facility] Plt 261 150 - 400 K/cumm [facility] MPV 10.7 9.1 - 12.3 fL [facility] RBC 3.81(L) 3.90 - 5.20 M/cumm [facility] MCV 87.7 81.3 - 96.4 fL [facility] MCH 28.1 27.1 - 33.3 pg [facility] MCHC 32.0(L) 32.3 - 35.7 g/dL [facility] RDW CV 13.1 11.1 - 14.9 % [facility] RDW SD 41.5 35.7 - 48.1 fL [facility] NRBC abs 0.00 0.00 - 0.01 K/cumm [facility] Blood 03/02/2024 12:2 0 PM CDT 03/02/2024 12:49 PM CDT Merna Bell MD LAB BLOOD ORDERABLES Final Re sult Performing Organization Address [facility] Co de Phone Number [facility] Department [place] [address] * (ABNORMAL) Reticulocyte Count (03/02/2024 12:20 PM CDT) [facility] [facility], absolute 0.058 0.020 - 0.087 M/cumm Retics 1.5 0.4 - 2.9 % [facility] Reticulocyte Hgb 28.7(L) 30.5 - 38.0 pg [facility] Blood 03/02/2024 12:2 0 PM CDT 03/02/2024 12:49 PM CDT Meran Bell MD LAB BLOOD ORDERABLES Final Re sult Performing Organization Address City/[facility]/ZIP Co de Phone Number [facility] [place] [address] * Vitamin B12 (03/02/2024 12:20 PM CDT) [facility] Vitamin B12 281 230 - 1,250 pg/mL Blood 03/02/2024 12:2 0 PM CDT 03/02/2024 12:49 PM CDT Merna Bell MD LAB BLOOD ORDERABLES Final Re sult [facility] Department [place] [address] * (ABNORMAL) Renal function panel (03/02/2024 12:20 PM CDT) Pathologist [facility] Sodium 143 135 - 145 mmol/L Potassium, pl 3.3 3.3 - 4.9 mmol/L [facility] Chloride 104 97 - 110 mmol/L [facility] CO2 23 22 - 32 mmol/L [facility] Anion gap 16(H) 2 - 15 mmol/L [facility] BUN 21 6 - 25 mg/dL [facility] Creatinine 1.26(H) 0.60 - 1.10 mg/dL [facility] Glucose 204(H) 70 - 199 mg/dL [facility] Comment: Interpretive Data Fasting [...] 2022. Calcium 9.2 8.5 - 10.3 mg/dL [facility] Phosphorus, pl 4.3 2.3 - 4.5 mg/dL [facility] Albumin 3.8 3.5 - 5.0 g/dL [facility] Blood 03/02/2024 12:2 0 PM CDT 03/02/2024 12:49 PM CDT Merna Bell MD LAB BLOOD ORDERABLES Final Re sult [facility] Department [place] [address] * (ABNORMAL) Lipid panel (03/02/2024 12:20 PM [...] revised on 2017. HDL 45 >=40 mg/dL [facility] Comment: Interpretive Data Ages < or = [...] on 2017. LDL, calculated 81 <=129 mg/dL [facility] Comment: Interpretive Data Ages < or = [...] NCEP Expert Panel. Circulation 2004;110:227 3. Harshal Suggs al. VIOLA Cardiol. 2020 September 10;5(5):540-548. doi: 10.1001/jamacardio.2020.0013 Current Interpretive Data was last revised on 2024. Non-HDL Cholesterol 116 mg/dL [facility] Comment: Interpretive Data Ages < or = [...] last revised on 2017. Chol/HDL ratio 4 [facility] Blood 03/02/2024 12:2 0 PM CDT 03/02/2024 12:49 PM CDT Merna Bell MD LAB BLOOD ORDERABLES Final Re sult [facility] Department [place] [address] * POCT hemoglobin A1c (03/02/2024 11:35 AM CDT) Hemoglobin A1C, POC 7.1 4.0 - 5.6 % Blood 03/02/2024 11:3 5 AM CDT Merna Bell MD POINT OF CARE TEST ORDERABLES Final Result * POCT glucose (03/02/2024 11:33 AM CDT) Glucose Blood, POC 230 mg/dL Blood 03/02/2024 11:3 3 AM CDT us Merna Bell MD POINT [...] was last reviewed 2021. Testing performed by: [address] [address] Blood 02/05/2024 6:06 AM CDT 02/05/2024 9:48 AM CDT us Notinfile Unknown LAB BLOOD ORDERABLES Final Res ult [facility] Department [place] [address] * Differential, auto (02/05/2024 6:06 AM CDT) Neutrophil abs 3.6 1.5 - 6.5 K/cumm JORGE Comment:Testing performed by : [address] [address] Imm gran abs 0.0 0.0 - 0.1 K/cumm JORGE Comment:Testing performed by : [address] [address] Lymphocyte abs 1.6 0.8 - 3.3 K/cumm JORGE Comment:Testing performed by : [address] [address] Monocyte abs 0.6 0.2 - 0.8 K/cumm JORGE Comment:Testing performed by : [address] [address] Eosinophil abs 0.1 0.0 - 0.5 K/cumm JORGE Comment:Testing performed by : [address] [address] Basophil abs 0.0 0.0 - 0.1 K/cumm JORGE Comment:Testing performed by : [address] [address] Neutrophil pct 59.7 % JORGE Comment: Interpretive Data Percent cell count reference ranges are not reported, since discordance with absolute values may lead to misinterpretation of CBC data. Current Interpretive Data was last revised on 2017. Testing performed by: [address] [address] Imm gran pct 0.7 % JORGE Comment: Interpretive Data Percent cell count reference ranges are not reported, since discordance with absolute values may lead to misinterpretation of CBC data. Current Interpretive Data was last revised on 2017. Testing performed by: [address] [address] Lymphocyte pct 26.8 % J[facility]GE Comment: Interpretive Data Percent cell count reference ranges are not reported, since discordance with absolute values may lead to misinterpretation of CBC data. Current Interpretive Data was last revised on 2017. Testing performed by: [address] [address] Monocyte pct 10.1 % JORGE Comment: Interpretive Data Percent cell count reference ranges are not reported, since discordance with absolute values may lead to misinterpretation of CBC data. Current Interpretive Data was last revised on 2017. Testing performed by: [address] [address] Eosinophil pct 2.0 % JORGE Comment: Interpretive Data Percent cell count reference ranges are not reported, since discordance with absolute values may lead to misinterpretation of CBC data. Current Interpretive Data was last revised on 2017. Testing performed by: [address] [address] Basophil pct 0.7 % [facility]GE Comment: Interpretive Data Percent cell count reference ranges are not reported, since discordance with absolute values may lead to misinterpretation of CBC data. Current Interpretive Data was last revised on 2017. Testing performed by: [address] [address] Blood 02/05/2024 6:06 AM CDT 02/05/2024 9:48 AM CDT us Notinfile Unknown LAB BLOOD ORDERABLES Final Res ult J[facility]GE ED[facility] [address] [facility] Department [place] [address] * (ABNORMAL) CBC with auto differential (02/05/2024 6:06 AM CDT) WBC 6.0 3.8 - 9.9 K/cumm J[facility]GE EDGE Comment:Testing performed by : [address] [address] Hgb 8.1(L) 11.9 - 15.5 g/dL [facility] EDGE Comment:Testing performed by : [address] [address] Hct 26.6(L) 35.6 - 45.5 % [facility] EDGE Comment:Testing performed by : [address] [address] Plt 343 150 - 400 K/cumm [facility] EDGE Comment:Testing performed by : [address] [address] MPV 10.4 9.1 - 12.3 fL [facility] EDGE Comment:Testing performed by : [address] [address] RBC 2.79(L) 3.90 - 5.20 M/cumm [facility] EDGE Comment:Testing performed by : [address] [address] MCV 95.3 81.3 - 96.4 fL [facility] EDGE Comment:Testing performed by : [address] [address] MCH 29.0 27.1 - 33.3 pg [facility] EDGE Comment:Testing performed by : [address] [address] MCHC 30.5(L) 32.3 - 35.7 g/dL JORGE Comment:Testing performed by : [address], [address] RDW CV 14.6 11.1 - 14.9 % [facility] EDGE Comment:Testing performed by : [address] [address] RDW SD 50.4(H) 35.7 - 48.1 fL [facility] EDGE Comment:Testing performed by : [address] [address] NRBC abs 0.00 0.00 - 0.01 K/cumm [facility] EDGE Comment:Testing performed by : [address] [address] Blood 02/05/2024 6:06 AM CDT 02/05/2024 9:48 AM CDT us Notinfile Unknown LAB BLOOD ORDERABLES Final Res ult JORGE EDGE [address] [facility] Department [place] [address] * (ABNORMAL) Basic metabolic panel (02/05/2024 6:06 AM CDT) Sodium 140 135 - 145 mmol/L JORGE Comment:Testing performed by : [address] [address] Potassium, pl 4.6 3.3 - 4.9 mmol/L JORGE Comment:Testing performed by : [address] [address] Chloride 107 97 - 110 mmol/L JORGE Comment:Testing performed by : [address] [address] CO2 22 22 - 32 mmol/L JORGE Comment:Testing performed by : [address] [address] Anion gap 11 2 - 15 mmol/L JORGE Comment:Testing performed by : [address] [address] BUN 26(H) 6 - 25 mg/dL [facility] EDGE Comment:Testing performed by : [address] [address] Creatinine 1.40(H) 0.60 - 1.10 mg/dL [facility] EDGE Comment:Testing performed by : [address] [address] Glucose 107 70 - 199 mg/dL JORGE [...] was last revised 2022. Testing performed by: [address] [address] Calcium 9.1 8.5 - 10.3 mg/dL JORGE Comment:Testing performed by : [address] [address] Blood 02/05/2024 6:06 AM CDT 02/05/2024 9:48 AM CDT us Notinfile Unknown LAB BLOOD ORDERABLES Final Res ult JORGE [address] [facility] Department [place] [address] * (ABNORMAL) eGFR (02/03/2024 6:01 AM CDT) [facility] eGFR 39(L) >=60 mL/min/1. 73 m2 JORGE [...] was last reviewed 2021. Testing performed by: [address] [address] Blood 02/03/2024 6:01 AM CDT 02/03/2024 8:28 AM CDT us Notinfile Unknown LAB BLOOD ORDERABLES Final Res ult [facility] [address] [facility] Department [place] [address] * Differential, auto (02/03/2024 6:01 AM CDT) Neutrophil abs 5.6 1.5 - 6.5 K/cumm JORGE Comment:Testing performed by : [address] [address] Imm gran abs 0.1 0.0 - 0.1 K/cumm JORGE Comment:Testing performed by : [address] [address] Lymphocyte abs 2.8 0.8 - 3.3 K/cumm JORGE Comment:Testing performed by : [address] [address] Monocyte abs 0.7 0.2 - 0.8 K/cumm JORGE Comment:Testing performed by : [address] [address] Eosinophil abs 0.2 0.0 - 0.5 K/cumm [facility] Comment:Testing performed by : [address] [address] Basophil abs 0.1 0.0 - 0.1 K/cumm JORGE Comment:Testing performed by : [address] [address] Neutrophil pct 60.0 % [facility] Comment: Interpretive Data Percent cell count reference ranges are not reported, since discordance with absolute values may lead to misinterpretation of CBC data. Current Interpretive Data was last revised on 2017. Testing performed by: [address] [address] Imm gran pct 0.9 % [facility] Comment: Interpretive Data Percent cell count reference ranges are not reported, since discordance with absolute values may lead to misinterpretation of CBC data. Current Interpretive Data was last revised on 2017. Testing performed by: [address] [address] Lymphocyte pct 29.4 % [facility] Comment: Interpretive Data Percent cell count reference ranges are not reported, since discordance with absolute values may lead to misinterpretation of CBC data. Current Interpretive Data was last revised on 2017. Testing performed by: [address] [address] Monocyte pct 7.2 % [facility] Comment: Interpretive Data Percent cell count reference ranges are not reported, since discordance with absolute values may lead to misinterpretation of CBC data. Current Interpretive Data was last revised on 2017. Testing performed by: [address] [address] Eosinophil pct 1.9 % [facility] Comment: Interpretive Data Percent cell count reference ranges are not reported, since discordance with absolute values may lead to misinterpretation of CBC data. Current Interpretive Data was last revised on 2017. Testing performed by: [address] [address] Basophil pct 0.6 % [facility] Comment: Interpretive Data Percent cell count reference ranges are not reported, since discordance with absolute values may lead to misinterpretation of CBC data. Current Interpretive Data was last revised on 2017. Testing performed by: [address] [address] Blood 02/03/2024 6:01 AM CDT 02/03/2024 8:28 AM CDT us Notinfile Unknown LAB BLOOD ORDERABLES Final Res ult JORGE [address] [facility] Department [place] [address] * (ABNORMAL) CBC with auto differential (02/03/2024 6:01 AM CDT) WBC 9.3 3.8 - 9.9 K/cumm J[facility]GE EDGE Comment:Testing performed by : [address] [address] Hgb 9.5(L) 11.9 - 15.5 g/dL [facility] ED[facility] Comment:Testing performed by : [address] [address] Hct 29.9(L) 35.6 - 45.5 % [facility] EDGE Comment:Testing performed by : [address] [address] Plt 426(H) 150 - 400 K/cumm [facility] EDGE Comment:Testing performed by : [address] [address] MPV 10.5 9.1 - 12.3 fL [facility] ED[facility] Comment:Testing performed by : [address] [address] RBC 3.20(L) 3.90 - 5.20 M/cumm [facility] EDGE Comment:Testing performed by : [address] [address] MCV 93.4 81.3 - 96.4 fL [facility] Comment:Testing performed by : [address] [address] MCH 29.7 27.1 - 33.3 pg [facility] EDGE Comment:Testing performed by : [address] [address] MCHC 31.8(L) 32.3 - 35.7 g/dL [facility] Comment:Testing performed by : [address] [address] RDW CV 14.5 11.1 - 14.9 % [facility] Comment:Testing performed by : [address] [address] RDW SD 49.1(H) 35.7 - 48.1 fL [facility] Comment:Testing performed by : [address] [address] NRBC abs 0.00 0.00 - 0.01 K/cumm [facility] EDGE Comment:Testing performed by : [address] [address] Blood 02/03/2024 6:01 AM CDT 02/03/2024 8:28 AM CDT us Notinfile Unknown LAB BLOOD ORDERABLES Final Res ult JORGE [address] [facility] Department [place] [address] * (ABNORMAL) Basic metabolic panel (02/03/2024 6:01 AM CDT) Sodium 140 135 - 145 mmol/L [facility] Comment:Testing performed by : [address] [address] Potassium, pl 4.4 3.3 - 4.9 mmol/L [facility] Comment:Testing performed by : [address] [address] Chloride 104 97 - 110 mmol/L [facility] Comment:Testing performed by : [address] [address] CO2 22 22 - 32 mmol/L [facility] Comment:Testing performed by : [address] [address] Anion gap 14 2 - 15 mmol/L [facility] Comment:Testing performed by : [address] [address] BUN 23 6 - 25 mg/dL [facility] Comment:Testing performed by : [address] [address] Creatinine 1.40(H) 0.60 - 1.10 mg/dL [facility] Comment:Testing performed by : [address] [address] Glucose 111 70 - 199 mg/dL [facility] Comment: Interpretive Data Fasting glucose >/= 126 [...] was last revised 2022. Testing performed by: [address] [address] Calcium 9.3 8.5 - 10.3 mg/dL JORGE Comment:Testing performed by : [address] [address] Blood 02/03/2024 6:01 AM CDT 02/03/2024 8:28 AM CDT us Notinfile Unknown LAB BLOOD ORDERABLES Final Res ult Performing Organization Address City/State/[facility] Co de Phone Number JORGE [address] [facility] Department [place] [address] * (ABNORMAL) eGFR (02/02/2024 4:30 AM CDT) Pathologist [facility] eGFR 43(L) >=60 mL/min/1. 73 m2 JORGE [...] was last reviewed 2021. Testing performed by: [address] [address] Blood 02/02/2024 4:30 AM CDT 02/02/2024 9:37 AM CDT us Notinfile Unknown LAB BLOOD ORDERABLES Final Res ult JORGE EDGE [address] [facility] Department of Laboratories [place], [place] [id number] * (ABNORMAL) Basic metabolic panel (02/02/2024 4:30 AM CDT) Sodium 141 135 - 145 mmol/L [facility] EDGE Comment:Testing performed by : [address] [address] Potassium, pl 4.2 3.3 - 4.9 mmol/L [facility] EDGE Comment:Testing performed by : [address] [address] Chloride 106 97 - 110 mmol/L [facility] EDGE Comment:Testing performed by : [address] [address] CO2 23 22 - 32 mmol/L [facility] EDGE Comment:Testing performed by : [address] [address] Anion gap 12 2 - 15 mmol/L [facility] EDGE Comment:Testing performed by : [address] [address] BUN 24 6 - 25 mg/dL [facility] EDGE Comment:Testing performed by : [address] [address] Creatinine 1.30(H) 0.60 - 1.10 mg/dL [facility] EDGE Comment:Testing performed by : [address] [address] Glucose 77 70 - 199 mg/dL JORGE [...] was last revised 2022. Testing performed by: [address] [address] Calcium 8.9 8.5 - 10.3 mg/dL [facility] EDGE Comment:Testing performed by : [address] [address] Blood 02/02/2024 4:30 AM CDT 02/02/2024 9:37 AM CDT us Notinfile Unknown LAB BLOOD ORDERABLES Final Res ult J[facility]GE EDGE [address] [facility] Department [place] [address] * (ABNORMAL) eGFR (02/01/2024 4:35 [...] last reviewed 2021. Testing performed by: [facility], [address] [place] [address]., [address] Blood 02/01/2024 4:35 AM CDT 02/01/2024 8:14 AM CDT us Notinfile Unknown LAB BLOOD ORDERABLES Final Res ult JORGE EDGE [address] [facility] Department [place] [address] * Magnesium (02/01/2024 4:35 AM CDT) Magnesium 1.9 1.4 - 2.5 mg/dL [facility] EDGE Comment:Testing performed by : [address] [address] Blood 02/01/2024 4:35 AM CDT 02/01/2024 8:13 AM CDT us Notinfile Unknown LAB BLOOD ORDERABLES Final Res ult J[facility]GE EDGE [address] [facility] Department [place] [address] * (ABNORMAL) Basic metabolic panel (02/01/2024 4:35 AM CDT) Sodium 140 135 - 145 mmol/L JORGE Comment:Testing performed by : [address] [address] Potassium, pl 4.7 3.3 - 4.9 mmol/L JORGE Comment:Testing performed by : [address] [address] Chloride 106 97 - 110 mmol/L JORGE Comment:Testing performed by : [address] [address] CO2 22 22 - 32 mmol/L JORGE Comment:Testing performed by : [address] [address] Anion gap 12 2 - 15 mmol/L JORGE Comment:Testing performed by : [address] [address] BUN 27(H) 6 - 25 mg/dL JORGE Comment:Testing performed by : [address] [address] Creatinine 1.70(H) 0.60 - 1.10 mg/dL OJRGE Comment:Testing performed by : [address] [address] Glucose 132 70 - 199 mg/dL JORGE [...] was last revised 2022. Testing performed by: [facility], [address] [place] [address]., [address] Calcium 8.8 8.5 - 10.3 mg/dL J[facility]GE EDGE Comment:Testing performed by : [facility], [address] [place] [address]., [address] Blood 02/01/2024 4:35 AM CDT 02/01/2024 8:13 AM CDT us Notinfile Unknown LAB BLOOD ORDERABLES Final Res ult JORGE EDGE [address] [facility] Department [place] [address] * (ABNORMAL) eGFR (01/31/2024 5:00 AM CDT) eGFR 36(L) >=60 mL/min/1. 73 m2 JORGE EDGE Comment: [...] was last reviewed 2021. Testing performed by: [address] [address] Blood 01/31/2024 5:00 AM CDT 01/31/2024 8:23 AM CDT us Notinfile Unknown LAB BLOOD ORDERABLES Final Res ult JORGE [address] [facility] Department [place] [address] * Differential, auto (01/31/2024 5:00 AM CDT) Neutrophil abs 4.7 1.5 - 6.5 K/cumm JORGE Comment:Testing performed by : [address] [address] Imm gran abs 0.1 0.0 - 0.1 K/cumm JORGE Comment:Testing performed by : [address] [address] Lymphocyte abs 1.8 0.8 - 3.3 K/cumm JORGE Comment:Testing performed by : [address] [address] Monocyte abs 0.7 0.2 - 0.8 K/cumm JORGE Comment:Testing performed by : [address] [address] Eosinophil abs 0.1 0.0 - 0.5 K/cumm JORGE Comment:Testing performed by : [address] [address] Basophil abs 0.1 0.0 - 0.1 K/cumm JORGE Comment:Testing performed by : [address] [address] Neutrophil pct 61.7 % JORGE Comment: Interpretive Data Percent cell count reference ranges are not reported, since discordance with absolute values may lead to misinterpretation of CBC data. Current Interpretive Data was last revised on 2017. Testing performed by: [address] [address] Imm gran pct 1.6 % [facility] Comment: Interpretive Data Percent cell count reference ranges are not reported, since discordance with absolute values may lead to misinterpretation of CBC data. Current Interpretive Data was last revised on 2017. Testing performed by: [address] [address] Lymphocyte pct 24.4 % [facility] Comment: Interpretive Data Percent cell count reference ranges are not reported, since discordance with absolute values may lead to misinterpretation of CBC data. Current Interpretive Data was last revised on 2017. Testing performed by: [address] [address] Monocyte pct 9.7 % [facility] Comment: Interpretive Data Percent cell count reference ranges are not reported, since discordance with absolute values may lead to misinterpretation of CBC data. Current Interpretive Data was last revised on 2017. Testing performed by: [address] [address] Eosinophil pct 1.9 % [facility] Comment: Interpretive Data Percent cell count reference ranges are not reported, since discordance with absolute values may lead to misinterpretation of CBC data. Current Interpretive Data was last revised on 2017. Testing performed by: [address] [address] Basophil pct 0.7 % [facility] Comment: Interpretive Data Percent cell count reference ranges are not reported, since discordance with absolute values may lead to misinterpretation of CBC data. Current Interpretive Data was last revised on 2017. Testing performed by: [address] [address] Blood 01/31/2024 5:00 AM CDT 01/31/2024 8:23 AM CDT us Notinfile Unknown LAB BLOOD ORDERABLES Final Res ult JORGE EDGE [address] [facility] Department [place] [address] * (ABNORMAL) Pro B-type natriuretic peptide (01/31/2024 5:00 AM CDT) [facility] NT-proBNP 4,427(H) <=300 pg/mL JORGE EDGE Comment: [...] Last Revised Date: 2017. Testing performed by: [facility], [address] [place] [address]., [address] Blood 01/31/2024 5:00 AM CDT 01/31/2024 8:23 AM CDT us Notinfile Unknown LAB BLOOD ORDERABLES Final Res ult JORGE EDGE [address] [facility] Department [place] [address] * (ABNORMAL) CBC with auto differential (01/31/2024 5:00 AM CDT) Pathologist [facility] WBC 7.6 3.8 - 9.9 K/cumm JORGE EDGE Comment:Testing performed by : [address] [address] Hgb 8.2(L) 11.9 - 15.5 g/dL J[facility]GE EDGE Comment:Testing performed by : [address] [address] Hct 26.1(L) 35.6 - 45.5 % JORGE Comment:Testing performed by : [address] [address] Plt 352 150 - 400 K/cumm JORGE Comment:Testing performed by : [address] [address] MPV 10.7 9.1 - 12.3 fL J[facility] EDGE Comment:Testing performed by : [address] [address] RBC 2.80(L) 3.90 - 5.20 M/cumm J[facility]GE EDGE Comment:Testing performed by : [address] [address] MCV 93.2 81.3 - 96.4 fL [facility] EDGE Comment:Testing performed by : [address] [address] MCH 29.3 27.1 - 33.3 pg J[facility]GE EDGE Comment:Testing performed by : [address] [address] MCHC 31.4(L) 32.3 - 35.7 g/dL J[facility]GE EDGE Comment:Testing performed by : [address] [address] RDW CV 14.6 11.1 - 14.9 % [facility]GE EDGE Comment:Testing performed by : [address] [address] RDW SD 48.3(H) 35.7 - 48.1 fL [facility] EDGE Comment:Testing performed by : [address] [address] NRBC abs 0.00 0.00 - 0.01 K/cumm JORGE EDGE Comment:Testing performed by : [address] [address] Blood 01/31/2024 5:00 AM CDT 01/31/2024 8:23 AM CDT us Notinfile Unknown LAB BLOOD ORDERABLES Final Res ult [facility] Department [place] [address] * (ABNORMAL) Basic metabolic panel (01/31/2024 5:00 AM CDT) Sodium 142 135 - 145 mmol/L JORGE EDGE Comment:Testing performed by : [address] [address] Potassium, pl 4.5 3.3 - 4.9 mmol/L JORGE EDGE Comment:Testing performed by : [address] [address] Chloride 108 97 - 110 mmol/L J[facility]GE EDGE Comment:Testing performed by : [address] [address] CO2 21(L) 22 - 32 mmol/L J[facility]GE EDGE Comment:Testing performed by : [address] [address] Anion gap 13 2 - 15 mmol/L JORGE EDGE Comment:Testing performed by : [address] [address] BUN 28(H) 6 - 25 mg/dL JORGE EDGE Comment:Testing performed by : [address] [place] [address] Creatinine 1.50(H) 0.60 - 1.10 mg/dL JORGE EDGE Comment:Testing performed by : [facility], [address] [place] [address]., [address] Glucose 133 70 - 199 mg/dL JORGE [...] was last revised 2022. Testing performed by: [facility], [address] [place] [address]., [address] Calcium 8.9 8.5 - 10.3 mg/dL JORGE Comment:Testing performed by : [facility], [address] [place] [address]., [address] Blood 01/31/2024 5:00 AM CDT 01/31/2024 8:23 AM CDT us Notinfile Unknown LAB BLOOD ORDERABLES Final Res ult JORGE [address] [facility] Department [place] [address] * (ABNORMAL) eGFR (01/29/2024 6:20 AM CDT) [...] was last reviewed 2021. Testing performed by: [address] [address] Blood 01/29/2024 6:20 AM CDT 01/29/2024 8:23 AM CDT us Notinfile Unknown LAB BLOOD ORDERABLES Final Res ult JORGE [address] [facility] [place] [id number] * Differential, auto (01/29/2024 6:20 AM CDT) Neutrophil abs 5.2 1.5 - 6.5 K/cumm J[facility]GE EDGE Comment:Testing performed by : [address] [address] Imm gran abs 0.1 0.0 - 0.1 K/cumm J[facility]GE Comment:Testing performed by : [address] [address] Lymphocyte abs 1.9 0.8 - 3.3 K/cumm [facility]GE Comment:Testing performed by : [address] [address] Monocyte abs 0.8 0.2 - 0.8 K/cumm [facility]GE Comment:Testing performed by : [address] [address] Eosinophil abs 0.2 0.0 - 0.5 K/cumm JORGE Comment:Testing performed by : [address] [address] Basophil abs 0.0 0.0 - 0.1 K/cumm JORGE Comment:Testing performed by : [address] [address] Neutrophil pct 63.2 % [facility] Comment: Interpretive Data Percent cell count reference ranges are not reported, since discordance with absolute values may lead to misinterpretation of CBC data. Current Interpretive Data was last revised on 2017. Testing performed by: [address] [address] Imm gran pct 1.2 % [facility] Comment: Interpretive Data Percent cell count reference ranges are not reported, since discordance with absolute values may lead to misinterpretation of CBC data. Current Interpretive Data was last revised on 2017. Testing performed by: [address] [address] Lymphocyte pct 23.4 % [facility] Comment: Interpretive Data Percent cell count reference ranges are not reported, since discordance with absolute values may lead to misinterpretation of CBC data. Current Interpretive Data was last revised on 2017. Testing performed by: [address] [address] Monocyte pct 9.4 % [facility] Comment: Interpretive Data Percent cell count reference ranges are not reported, since discordance with absolute values may lead to misinterpretation of CBC data. Current Interpretive Data was last revised on 2017. Testing performed by: [address] [address] Eosinophil pct 2.3 % [facility] Comment: Interpretive Data Percent cell count reference ranges are not reported, since discordance with absolute values may lead to misinterpretation of CBC data. Current Interpretive Data was last revised on 2017. Testing performed by: [address] [address] Basophil pct 0.5 % JORGE Comment: Interpretive Data Percent cell count reference ranges are not reported, since discordance with absolute values may lead to misinterpretation of CBC data. Current Interpretive Data was last revised on 2017. Testing performed by: [address] [address] Blood 01/29/2024 6:20 AM CDT 01/29/2024 8:23 AM CDT us Notinfile Unknown LAB BLOOD ORDERABLES Final Res ult JORGE [address] [facility] Department [place] [address] * (ABNORMAL) CBC with auto differential (01/29/2024 6:20 AM CDT) WBC 8.2 3.8 - 9.9 K/cumm [facility]GE Comment:Testing performed by : [address] [address] Hgb 8.5(L) 11.9 - 15.5 g/dL JORGE Comment:Testing performed by : [address] [address] Hct 26.5(L) 35.6 - 45.5 % JORGE Comment:Testing performed by : [address] [address] Plt 281 150 - 400 K/cumm JORGE Comment:Testing performed by : [address] [address] MPV 10.6 9.1 - 12.3 fL JORGE Comment:Testing performed by : [address] [address] RBC 2.86(L) 3.90 - 5.20 M/cumm [facility]GE Comment:Testing performed by : [address] [address] MCV 92.7 81.3 - 96.4 fL [facility] Comment:Testing performed by : [address] [address] MCH 29.7 27.1 - 33.3 pg [facility]GE Comment:Testing performed by : [address] [address] MCHC 32.1(L) 32.3 - 35.7 g/dL [facility]GE Comment:Testing performed by : [address] [address] RDW CV 14.1 11.1 - 14.9 % [facility] Comment:Testing performed by : [address] [address] RDW SD 46.3 35.7 - 48.1 fL [facility]GE Comment:Testing performed by : [address] [address] NRBC abs 0.00 0.00 - 0.01 K/cumm [facility]GE Comment:Testing performed by : [address] [address] Blood 01/29/2024 6:20 AM CDT 01/29/2024 8:23 AM CDT us Notinfile Unknown LAB BLOOD ORDERABLES Final Res ult JORGE [facility] Department [place] [address] * (ABNORMAL) CBC without differential (01/29/2024 6:20 AM CDT) WBC 8.2 3.8 - 9.9 K/cumm [facility] EDGE Comment:Testing performed by : [address] [address] Hgb 8.5(L) 11.9 - 15.5 g/dL [facility]GE Comment:Testing performed by : [address] [address] Hct 26.5(L) 35.6 - 45.5 % [facility] Comment:Testing performed by : [address] [address] Plt 281 150 - 400 K/cumm [facility]GE Comment:Testing performed by : [address] [address] MPV 10.6 9.1 - 12.3 fL [facility]GE Comment:Testing performed by : [address] [address] RBC 2.86(L) 3.90 - 5.20 M/cumm [facility]GE Comment:Testing performed by : [address] [address] MCV 92.7 81.3 - 96.4 fL [facility]GE Comment:Testing performed by : [address] [address] MCH 29.7 27.1 - 33.3 pg [facility]GE Comment:Testing performed by : [address] [address] MCHC 32.1(L) 32.3 - 35.7 g/dL [facility]GE Comment:Testing performed by : [address] [address] RDW CV 14.1 11.1 - 14.9 % [facility]GE Comment:Testing performed by : [address], [address] RDW SD 46.3 35.7 - 48.1 fL [facility]GE Comment:Testing performed by : [address] [address] NRBC abs 0.00 0.00 - 0.01 K/cumm [facility] EDGE Comment:Testing performed by : [address] [address] Blood 01/29/2024 6:20 AM CDT 01/29/2024 8:23 AM CDT us Notinfile Unknown LAB BLOOD ORDERABLES Final Res ult J[facility]GE EDGE [address] [facility] Department [place] [address] * Magnesium (01/29/2024 6:20 AM CDT) Pathologist [facility] Magnesium 2.0 1.4 - 2.5 mg/dL JORGE EDGE Comment:Testing performed by : [address] [place] [address] Blood 01/29/2024 6:20 AM CDT 01/29/2024 8:23 AM CDT us Notinfile Unknown LAB BLOOD ORDERABLES Final Res ult [facility] [address] [facility] Department [place] [address] * (ABNORMAL) Comprehensive metabolic panel (01/29/2024 6:20 AM CDT) Sodium 140 135 - 145 mmol/L JORGE Comment:Testing performed by : [address] [address] Potassium, pl 4.5 3.3 - 4.9 mmol/L JORGE Comment:Testing performed by : [address] [address] Chloride 105 97 - 110 mmol/L JORGE Comment:Testing performed by : [address] [address] CO2 20(L) 22 - 32 mmol/L JORGE Comment:Testing performed by : [address] [address] Anion gap 15 2 - 15 mmol/L JORGE Comment:Testing performed by : [address] [address] BUN 26(H) 6 - 25 mg/dL JORGE Comment:Testing performed by : [address] [address] Creatinine 1.20(H) 0.60 - 1.10 mg/dL JORGE Comment:Testing performed by : [address] [address] Glucose 75 70 - 199 mg/dL JORGE [...] was last revised 2022. Testing performed by: [address] [address] Calcium 8.9 8.5 - 10.3 mg/dL JORGE Comment:Testing performed by : [address] [address] Bilirubin, total 0.4 0.1 - 1.2 mg/dL JORGE Comment:Testing performed by : [address] [address] Protein, pl 5.6(L) 6.5 - 8.5 g/dL JORGE Comment:Testing performed by : [address] [address] Albumin 3.0(L) 3.5 - 5.0 g/dL JORGE Comment:Testing performed by : [address] [address] Alk phos 99 40 - 130 Units/L JORGE Comment:Testing performed by : [address] [address] ALT 9 7 - 45 Units/L JORGE Comment:Testing performed by : [address] [address] AST 19 10 - 45 Units/L JORGE Comment:Testing performed by : [address] [address] Blood 01/29/2024 6:20 AM CDT 01/29/2024 8:23 AM CDT us Notinfile Unknown LAB BLOOD ORDERABLES Final Res ult J[facility] EDGE [address] [facility] Department [place] [address] * (ABNORMAL) Basic metabolic panel (01/29/2024 6:20 AM CDT) Sodium 140 135 - 145 mmol/L JORGE Comment:Testing performed by : [facility], [address] [place] [address]., [address] Potassium, pl 4.5 3.3 - 4.9 mmol/L JORGE Comment:Testing performed by : [address], [place]., [address] Chloride 105 97 - 110 mmol/L JORGE Comment:Testing performed by : [address], [place]., [address] CO2 20(L) 22 - 32 mmol/L JORGE Comment:Testing performed by : [address], [place]., [address] Anion gap 15 2 - 15 mmol/L JORGE Comment:Testing performed by : [address], [place]., [address] BUN 26(H) 6 - 25 mg/dL JORGE Comment:Testing performed by : [address], [place]., [address] Creatinine 1.20(H) 0.60 - 1.10 mg/dL JORGE Comment:Testing performed by : [address], [place]., [address] Glucose 75 70 - 199 mg/dL JORGE [...] was last revised 2022. Testing performed by: [address] [address] Calcium 8.9 8.5 - 10.3 mg/dL JORGE Comment:Testing performed by : [address], [place]., [address] Blood 01/29/2024 6:20 AM CDT 01/29/2024 8:23 AM CDT us Notinfile Unknown LAB BLOOD ORDERABLES Final Res ult JORGE [address] [facility] Department [place] [address] * Albumin Creatinine Ratio, Urine (10/29/2023 9:30 AM CDT) Microalb, Ur 7.9 0.0 - 22.9 mg/L [facility] Random Urine Creatinine 109.6 mg/dL [facility] Microalb/Creat Ratio 7.2 0.0 - 29.9 mg/g [facility] Urine 10/29/2023 9:30 AM CDT 10/29/2023 11:19 AM CDT Lia Mariano [employer] REPRESENTATIVE LAB URINE ORDERABLES Phyllis l Result Performing Organization Address City/[facility]/ZIP Co de Phone Number [facility] * Dexa Axial Skeleton Bone Density 1 or 2 Site (12/03/2022 10:04 AM CDT) Anatomical Region Laterality Modality Body N/A Radiographic Luba ging Narrative 12/04/2022 1:59 PM CDT Patient Name: Isabelle Lutz Date of : 1950 Date of scan: 12/03/2022 Bone mineral density was performed on a HoloTNC Discovery Densitometer. ?? Based on machine cross-calibration [...] mineral density scan were prepared by Eloisa Osvaldo R.T.(R)(M)(BD) CBDT ??who is accredited by the International Society of Clinical Densitometry. The overall patient assessment and scan interpretation were performed by Payton Murphy MD who is certified by the International Society of Clinical Densitometry. [id number] Merna Bell MD IMG DXA PROCEDURES Final Resu lt from Last 3 Months or Most Recently Relevant to Health Maintenance Insurance MEDICARE [facility] FEDERAL MEDICARE [facility] MEDICARE MEDICARE [facility] Advance Directives For more information, please contact: [phone] * Full Code (Latest Code Status on File) Date Activated Date Inactivated Comments 01/20/2024 5:39 PM 01/28/2024 5:37 PM * Full Code Date Activated Date Inactivated Comments 11/25/2023 10:11 AM 11/25/2023 6:07 PM * Full Code Date Activated Date Inactivated Comments 11/15/2023 4:07 PM 11/16/2023 7:24 PM Care Teams Grader Meat Relationship Specialty Start Date End Date Elpidio Serrato MD PCP - General Internal Medicine 06/09/18
--- OUTSIDE RECORDS SUMMARY | 2024-04-29 14:04 | XMS_ITS | Encounter Summary ---
Author Organization [facility] Address [address] [place] [address] Phone Care Team Providers Care Accounting Specialist Name Role Phone Elpidio Serrato MD Primary Care Provider [phone] Reason for Referral * Consultation (Routine) - Authorized Specialty Diagnoses / Procedures Referred By Contact Referred To Contact Cardiac Rehabilitation Diagnoses CAD, multiple vessel Hx of CABG Fabi Collier NP [address] [facility] [address] [place] [address] Phone: tel:[phone] fax:[phone] [place] [address] Cardiopulmonary Rehab [address] [facility] [address] [place] [address] Phone: tel: fax: Referral ID Status Reason Start Date Expiration Date Visits Requested Visits Authorized [id number] Authorized Specialty Services Required 4 2025 1 1 Question Answer Please select the performing region: External Order [171] To loc/pos [facility] Cardiopulmonary Rehab [[id number]] Select a phase: Phase 2 # of visits: 1 [facility] Encounter Details Date Type Department Care Team (Late st Contact Info) Description 02/24/2024 Orders Only [facility] Cardiology [address] [facility] Medicine 8th [place] [address] [place] [id number] Fabi Collier NP [address] [facility] [address] [place] [address] CAD, multiple vessel (Primary Dx); Congestive heart failure, unspecified HF chronicity, unspecified heart failure type (HCC); ROSE (dyspnea on exertion); Abnormal stress echocardiogram; Hx of CABG Social History Tobacco Use Types Packs/Day Years [...] on file 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 Gender Identity Female 05/13/2021 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 Sexual Orientation Not on file documented as of this encounter Plan of Treatment Scheduled Referrals Name Type Priority Associated Diagnoses Order Schedule Ambulatory referral to Cardiac Rehab Outpatient Referral Routine CAD, multiple vessel Hx of CABG Ordered: 02/24/2024 documented as of this encounter Visit Diagnoses Diagnosis CAD, multiple vessel- Primary Congestive heart failure, unspecified HF chronicity, unspecified heart failure type (HCC) ROSE (dyspnea on exertion) Other dyspnea and respiratory abnormality Abnormal stress echocardiogram Hx of CABG Postsurgical aortocoronary bypass status documented in this encounter Care Teams Accounting Specialist Relationship Specialty Start Date End Date Elpidio Serrato MD PCP - General Internal Medicine 06/09/18 documented as of this encounter
--- OUTSIDE RECORDS SUMMARY | 2024-04-29 14:05 | XMS_ITS | Encounter Summary ---
Author Organization [facility] Address [address] [place] [address] Care Team Providers Care Communicable Disease Specialist Name Role Phone Elpidio Serrato MD Primary Care Provider [phone] Reason for Visit * Auth/Cert (Routine) Specialty Diagnoses / Procedures Referred By Contac t Referred To Contact Diagnoses Coronary artery disease, unspecified vessel or lesion type, unspecified whether angina present, unspecified whether qagan [place] or transplanted heart Coronary artery disease, unspecified vessel or lesion type, unspecified whether angina present, unspecified whether [place]agan [place] or transplanted heart [I25.10] Procedures TN CABG W/ARTERIAL GRAFT THREE ARTERIAL GRAFTS TN NDSC SURG W/VIDEO-ASSISTED HARVEST VEIN CABG 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 x3 OROZCO VEIN 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 Referral ID Status Reason Start Date Expiration Date Visits Re quested Visits Authorized [id number] 1 1 Encounter Details Date Type Department Care Team (Late st Contact Info) Description 01/20/2024 8:25 AM CDT Ancillary Procedure [facility] Operating Room [address] [place] [address] Social History Tobacco Use Types Packs/Day Years [...] making you feel afraid or unsafe? 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 us Diogo Smith MD CV ECHO PROCEDURES Final Result [facility] PROSOLV_CARDIOREPORT_CONS SCIMAGE documented in this encounter Visit Diagnoses Not on filedocumented in this encounter Care Teams Communicable Disease Specialist Relationship Specialty Start Date End Date Elpidio Serrato MD PCP - General Internal Medicine 06/09/18 documented as of this encounter
--- OUTSIDE RECORDS SUMMARY | 2024-04-29 14:05 | XMS_ITS | Encounter Summary ---
Author Organization [facility] Healthcare Address [address] [place] [address] Care Team Providers Care Mgmt Specialist Name Role Phone Elpidio Serrato MD Primary Care Provider [phone] Reason for Visit * Auth/Cert (Routine) Specialty Diagnoses / Procedures Referred By Contac t Referred To Contact Diagnoses Coronary artery disease, unspecified vessel or lesion type, unspecified whether angina present, unspecified whether king salmon or transplanted heart Coronary artery disease, unspecified vessel or lesion type, unspecified whether angina present, unspecified whether king salmon or transplanted heart [I25.10] Procedures [place] CABG W/ARTERIAL GRAFT THREE ARTERIAL GRAFTS NJ NDSC SURG W/VIDEO-ASSISTED HARVEST VEIN CABG 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 x3 AGOSTO VEIN 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 Referral ID Status Reason Start Date Expiration Date Visits Re quested Visits Authorized [id number] 1 1 Encounter Details Date Type Department Care Team (Latest Contact Info) Description 01/20/2024 6:04 AM CDT - 01/28/2024 1:37 PM CDT Hospital Encounter [facility] [address] [place] [address] Stan Treviño MD [id number] [place] [address] S/P CABG x 3 (Primary Dx); 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); CAD, multiple vessel; Type 2 diabetes mellitus (HCC); 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, with long-term current use of insulin, unspecified laterality (HCC) Discharge Disposition: Discharge to an IP Rehab facility Social History Tobacco Use Types Packs/Day Years [...] on file Legal 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 Gender Identity Female 05/13/2021 4:21 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 Sexual Orientation Not on file documented as of this encounter Last Filed Vital Signs Vital Sign Reading Time Taken Comments Blood Pressure 114/58 01/28/2024 10:39 AM CDT Pulse 72 01/28/2024 11:44 AM CDT Temperature 36.7 ??C (98.1 ??F) 01/28/2024 10:39 AM C DT Respiratory Rate 18 01/28/2024 10:39 AM CDT Oxygen Saturation 100% 01/28/2024 10:39 AM CDT Inhaled Oxygen Concentration - - Weight 93.1 kg (205 lb 4.8 oz) 01/28/2024 7:00 A M CDT Height 149.9 cm (4' 11.02 ) 01/21/2024 7:34 AM C DT Body Mass Index 41.44 01/21/2024 7:34 AM CDT documented in this encounter Discharge Summaries * Eloisa Freeman NP - 01/28/2024 11:59 AM CDT Inpatient Discharge Summary BRIEF OVERVIEW Admitting Provider: Stan Treviño MD Discharge Provider: Stan Treviño MD Primary Care Physician at Discharge: Elpidio Serrato MD [phone] Admission Date: 01/20/2024 Discharge Date: 01/28/2024 Admission Location: [facility] Primary Discharge Diagnosis: 1. On pump Coronary artery bypass grafting x3, placement of skeletonized left JAIMEE to the LAD, saphenous vein graft to the obtuse marginal, saphenous vein graft to the PDA 2. Left atrial appendage clip ligation using the 40 mm atrial lead (LeAPPS trial) 3. Sternal plating Secondary Discharge Diagnosis: Principal Problem: Coronary artery disease Active Problems: DM2 (diabetes mellitus, type 2) ([facility]) Obesity ABLA (acute blood loss anemia) AF (paroxysmal atrial fibrillation) ([facility]/HCC) ([facility]) Resolved Problems: Leucocytosis Thrombocytopenia ([facility]) DETAILS OF HOSPITAL STAY Presenting Problem/History of Present Illness: 73 y.o. yo female w/ PMHx of HTN, HLD< CAD, mild MR, anemia, CKD, DM type II ( Hgb A1c 5.9), hypothyroidism, and chronic knee pain. He was found to have multivessel diease on [facility] and is being seenby CTS for CABG evaluation. Hospital Course: Ms. Isabelle Lutz was taken to the operating room on 01/20/2024 for CABG x3 by Stan Fisher MD. The patient was taken to the intensive care unit postoperatively in stable condition. When hemodynamically stable, she was weaned from ventilatory and inotropic support. She developed atrial fibrillation in the post operative period which was treated with amiodarone. She remained in normal sinus rhythm. The patient was transferred to the stepdown unit in stable condition on 01/21/2024. Chest tubes were discontinued without difficulty. The Endocrinology team was consulted due to her history of diabetes and hypothyroidism. The patient progressed as expected. Aggressive physical therapy and pulmonary toilet were initiated, diet was advanced as tolerated, and wounds remained clean, dry and intact. Her pacing wires were cut at the skin prior to transfer to the Rehab facility ([facility]) Active Issues Requiring Follow-up: Continue PT/OT at the rehab center until able to discharge to home. Will need to call for appt with Dr Treviño if not already scheduled - office number is [phone]. Operative Procedures Performed: Procedure(s): 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 X3 USING AGOSTO AND LEFT & RIGHT SAPHENOUS ENDOVEIN HARVEST 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 LEFT ATRIAL APPENDAGE EXCLUSION USING 40MM ATRICLIP FLEXV ORIF OF STERNUM USING STERNALOCK 360 Discharge Details Physical Exam at Discharge: Discharge Condition: good Pulse: 72 Resp: 18 BP: 114/58 Temp: 36.7 ??C (98.1 ??F) Weight: 93.1 kg (205 lb 4.8 oz) Pertinent Exam Findings at Discharge: Physical Exam Vitals reviewed. Constitutional: Appearance: Normal appearance. She is obese. HENT: Head: Normocephalic. Nose: Nose normal. Cardiovascular: Rate and Rhythm: Normal rate and regular rhythm. Comments: Wires cut at the skin prior to discharge Pulmonary: Effort: Pulmonary effort is normal. Breath sounds: Normal breath sounds. Comments: On RA Abdominal: General: Bowel sounds are normal. There is no distension. Palpations: Abdomen is soft. Tenderness: There is no abdominal tenderness. Comments: Nml bms per pt report Musculoskeletal: Cervical back: Normal range of motion. Right lower leg: No edema. Left lower leg: No edema. Skin: General: Skin is warm and dry. Comments: Incision healing well Neurological: General: No focal deficit present. Mental Status: She is alert and oriented to person, place, and time. Psychiatric: Mood and Affect: Mood normal. Behavior: Behavior normal. Discharge Disposition: Discharge to home or self care Code Status at Discharge: Full Code Discharge Instructions: Recent Lab Results: Recent Labs Lab Units 01/28/24 1038 01/28/24 0752 01/28/24 0118 01/27/24 2103 01/27/24 0100 01/26/24 2120 01/26/24 0243 01/25/24 2140 SODIUM mmol/L -- -- -- 138 -- 140 -- 141 POTASSIUM PLASMA mmol/L -- -- -- 4.4 -- 4.6 -- 3.6 CHLORIDE mmol/L -- -- -- 104 -- 105 -- 105 CO2 mmol/L -- -- -- 25 -- 24 -- 26 BUN SERUM mg/dL -- -- -- 29* -- 33* -- 36* CREATININE mg/dL -- -- -- 1.40* -- 1.34* -- 1.30* GLUCOSE mg/dL -- -- -- 165 -- 138 -- 131 POC GLUCOSE MONITOR mg/dL 179 106 119 -- < > -- < > -- CALCIUM mg/dL -- -- -- 8.5 -- 8.5 -- 8.6 < > = values in this interval not displayed. Recent Labs Lab Units 01/27/24210201/26/24211901/25/242139 WBC K/cumm 7.6 8.2 8.6 HEMOGLOBIN g/dL 7.9* 8.0* 8.5* HEMATOCRIT % 24.4* 24.6* 26.8* PLATELETS K/cumm 230 211 210 Prior to Admission Medications: Medications Prior to Admission Medication Sig Dispense Refill Last Dose acetaminophen ER (TYLENOL) 650 mg 8 hr tablet Take 1 tablet (650 mg total) by mouth every 6 (six) hours as needed for pain 01/19/2024 aspirin 81 mg enteric coated tablet Take 1 tablet (81 mg total) by mouth every morning 01/19/2024 atorvastatin (LIPITOR) 40 mg tablet Take 1 tablet (40 mg total) by mouth daily (Patient taking differently: Take 1 tablet (40 mg total) by mouth every morning) 90 tablet 3 01/19/2024 blood glucose diagnostic (glucose blood) strip Testing once daily 100 each 2 01/20/2024 brimonidine-timoloL (Combigan) 0.2-0.5 % ophthalmic solution Administer 1 drop into the left eye 2 (two) times a day (Patient taking differently: Administer 1 drop into the left eye 2 (two) times a day) 15 mL 3 01/19/2024 chlorhexidine (HIBICLENS) 4 % external liquid Apply topically daily as needed for wound care For 5 days prior to procedure (Patient taking differently: Apply 1 Application topically daily For 5 days prior to procedure) 236 mL 0 01/20/2024 chlorhexidine (PERIDEX) 0.12 % solution Apply 15 mL to the mouth or throat 2 (two) times a day (Patient taking differently: Apply 15 mL to the mouth or throat 3 (three) times a day) 473 mL 0 01/20/2024 ergocalciferol (VITAMIN D) 50,000 unit capsule TAKE 1 CAPSULE BY MOUTH ONCE WEEKLY (Patient taking differently: Take 1 capsule (50,000 Units total) by mouth once a week Saturday) 12 capsule 1 Past Week furosemide (LASIX ORAL) Take 10 mg by mouth every morning 01/19/2024 insulin aspart (NovoLOG) 100 unit/mL (3 mL) pen for injection Inject 12 Units under the skin 3 (three) times a day 45 mL 2 01/19/2024 insulin glargine (BASAGLAR) 100 unit/mL (3 mL) pen for injection Inject 50 Units under the skin daily before breakfast (Patient taking differently: Inject 50 Units under the skin every morning) 45 mL3 01/19/2024 insulin lispro (HumaLOG, ADMELOG) 100 unit/mL vial for injection Inject 10 Units under the skin 3 (three) times a day before meals Plus sliding scale 01/19/2024 latanoprost (XALATAN) 0.005 % ophthalmic solution INSTILL 1 DROP INTO BOTH EYES NIGHTLY (Patient taking differently: Administer 1 drop into both eyes nightly) 7.5 mL 3 01/19/2024 levothyroxine (SYNTHROID) 88 mcg tablet TAKE 1 TABLET BY MOUTH EVERY DAY (Patient taking differently: Take 1 tablet (88 mcg total) by mouth every morning) 90 tablet 3 01/19/2024 metFORMIN (GLUCOPHAGE) 500 mg tablet Take 1 tablet (500 mg total) by mouth daily (Patient taking differently: Take 1 tablet (500 mg total) by mouth every morning) 90 tablet 3 01/19/2024 mupirocin (BACTROBAN) 2 % ointment Apply to each nostril 2 (two) times a day For 5 days prior to procedure (Patient taking differently: Apply 1 Application to each nostril 2 (two) times a day For 5 days prior to procedure) 22 g 0 01/19/2024 pen needle, diabetic (BD Ultra-Fine Hailee Pen Needle) 32 gauge x 5/32 needle Use 4X daily 300 each 3 01/20/2024 calcium carbonate (TUMS) 500 mg (200 mg elemental calcium) chewable tablet Take 1 tablet/chew tab (500 mg total) by mouth daily (Patient taking differently: Take 1 tablet/chew tab (500 mg total) by mouth every morning) 90 tablet/chew tab 3 Unknown glucose 4 gram chewable tablet Take 1 tablet (4 g total) by mouth as needed for low blood sugar More than a month nitroglycerin (NITROSTAT) 0.[address] 1 tablet (0.4 mg total) under the tongue every 5 (five) minutes as needed for chest pain (Patient taking differently: Place 1 tablet (0.4 mg total) under the tongue every 5 (five) minutes as needed for chest pain Last used during stress test) 90 tablet 1 Unknown semaglutide (OZEMPIC) 2 mg/dose (8 mg/3 mL) pen injector injection Inject 2 mg under the skin once a week 9 mL 3 01/06/2024 [DISCONTINUED] empagliflozin (Jardiance) 10 mg tablet Take 1 tablet (10 mg total) by mouth daily (Patient taking differently: Take 1 tablet (10 mg total) by mouth every morning Stopped for surgery) 90 tablet 3 01/13/2024 Discharge Medications: Your medication list START taking these medications Instructions Last Dose Given Next Dose Due amiodarone 400 mg tablet Commonly known as: PACERONE 400 mg, oral, 2 times daily amiodarone 200 mg tablet Commonly known as: PACERONE Start taking on: January 31, 2024 200 mg, oral, 2 times daily amiodarone 200 mg tablet Commonly known as: PACERONE Start taking on: February 03, 2024 200 mg, oral, Daily clopidogreL 75 mg tablet Commonly known as: PLAVIX Start taking on: January 29, 2024 75 mg, oral, Daily docusate sodium 100 mg capsule Commonly known as: COLACE 100 mg, oral, 2 times daily PRN insulin lispro 100 unit/mL pen for injection Doctor's comments: OK combine base prandial & SSI orders. May sub alternate covered rapid-acting insulin in pen/vial. If sub vial, OK sub appropriate volume SUBQ syringe. If sub pen, OK sub appropriately sized pen needles. Commonly known as: HumaLOG Replaces: insulin lispro 100 unit/mL vial for injection 6 Units, subcutaneous, 3 times daily with meals, (plus blood glucose mg/dL 150- 199: 1 unit, 200-249: 2 units, 250-299: 3 units, 300-349: 4 units, 350 or greater: 5 units. Notify provider for blood glucose greater than 299 mg/dL. Max daily dose 40) Refer to After Visit Summary for Sliding Scale Insulin Instructions. metoprolol XL 25 mg extended release tablet Commonly known as: TOPROL-XL Start taking on: January 29, 2024 12.5 mg, oral, Daily, Hold for SBP < 100 or HR < 60 oxyCODONE 5 mg immediate release tablet Commonly known as: ROXICODONE 5 mg, oral, Every 4 hours PRN CHANGE how you take these medications Instructions Last Dose Given Next Dose Due atorvastatin 40 mg tablet Commonly known as: LIPITOR What changed: when to take this 40 mg, oral, Daily calcium carbonate 500 mg (200 mg elemental calcium) chewable tablet Commonly known as: TUMS What changed: when to take this 500 mg, oral, Daily empagliflozin 10 mg tablet Commonly known as: Jardiance What changed: when to take this additional instructions 10 mg, oral, Daily ergocalciferol 50,000 unit capsule Commonly known as: VITAMIN D What changed: how much to take how to take this when to take this additional instructions TAKE 1 CAPSULE BY MOUTH ONCE WEEKLY LANTUS 100 unit/mL (3 mL) pen for injection Doctor's comments: May sub alternate covered basal insulin in pen/vial. If change to vial, OK sub appropriate volume SUBQ syringes. If sub pen, OK to sub appropriate size pen needles. Generic drug: insulin glargine What changed: how much to take 20 Units, subcutaneous, Daily before breakfast latanoprost 0.005 % ophthalmic solution Doctor's comments: 90 day supply is OK with 3 refills if authorized by insurance and patient prefers. Commonly known as: XALATAN What changed: See the new instructions. INSTILL 1 DROP INTO BOTH EYES NIGHTLY levothyroxine 88 mcg tablet Commonly known as: SYNTHROID What changed: when to take this 88 mcg, oral, Daily metFORMIN 500 mg tablet Commonly known as: GLUCOPHAGE What changed: when to take this 500 mg, oral, Daily pen needle, diabetic 32 gauge x 5/32 needle Commonly known as: BD Ultra-Fine Hailee Pen Needle What changed: Another medication with the same name was added. Make sure you understand how and when to take each. Use 4X daily pen needle, diabetic 32 gauge x 5/32 needle Doctor's comments: May substitute one size up or down as is available. Commonly known as: Pen Needle What changed: You were already taking a medication with the same name, and this prescription was added. Make sure you understand how and when to take each. Use as directed once a day. pen needle, diabetic 32 gauge x 5/32 needle Doctor's comments: May substitute one size up or down as is available. What changed: You were already taking a medication with the same name, and this prescription was added. Make sure you understand how and when to take each. Use as directed 3 times a day. pen needle, diabetic 32 gauge x 5/32 needle Doctor's comments: May substitute one size up or down as is available. What changed: You were already taking a medication with the same name, and this prescription was added. Make sure you understand how and when to take each. Use as directed 3 times a day. semaglutide 2 mg/dose (8 mg/3 mL) pen injector injection Commonly known as: OZEMPIC What changed: additional instructions 2 mg, subcutaneous, Weekly CONTINUE taking these medications Instructions Last Dose Given Next Dose Due acetaminophen ER 650 mg 8 hr tablet Commonly known as: TYLENOL 650 mg, oral, Every 6 hours PRN aspirin 81 mg enteric coated tablet 81 mg, oral, Every morning blood glucose diagnostic strip Commonly known as: glucose blood Testing once daily brimonidine-timoloL 0.2-0.5 % ophthalmic solution Doctor's comments: 90 day supply OK Commonly known as: Combigan 1 drop, left eye, 2 times daily LASIX ORAL 10 mg, oral, Every morning STOP taking these medications chlorhexidine 0.12 % solution Commonly known as: PERIDEX chlorhexidine 4 % external liquid Commonly known as: HIBICLENS glucose 4 gram chewable tablet insulin aspart 100 unit/mL (3 mL) pen for injection Commonly known as: NovoLOG insulin lispro 100 unit/mL vial for injection Commonly known as: HumaLOG, ADMELOG Replaced by: insulin lispro 100 unit/mL pen for injection mupirocin 2 % ointment Commonly known as: BACTROBAN nitroglycerin 0.4 mg SL tablet Commonly known as: NITROSTAT Where to Get Your Medications These medications were sent to [facility] AT Portal to Registered [facility] [address] empagliflozin 10 mg tablet insulin lispro 100 unit/mL pen for injection pen needle, diabetic 32 gauge x 5/32 needle pen needle, diabetic 32 gauge x 5/32 needle pen needle, diabetic 32 gauge x 5/32 needle Information about where to get these medications is not yet available Ask your nurse or doctor about these medications amiodarone 200 mg tablet amiodarone 200 mg tablet amiodarone 400 mg tablet clopidogreL 75 mg tablet docusate sodium 100 mg capsule LANTUS 100 unit/mL (3 mL) pen for injection metoprolol XL 25 mg extended release tablet oxyCODONE 5 mg immediate release tablet Outpatient Follow-Up: All Sternotomy patients have been instructed to arrive 30 minutes prior to their appointment to have a chest x-ray completed. Future Appointments Date Time Provider Department Center 02/14/2024 11:30 AM Fabi Collier NP [facility] 8B Cardiology 03/02/2024 11:40 AM Merna Bell MD [facility] 13B [facility] EML Eloisa Freeman NP Cosigned by Stan Treviño MD at 01/29/2024 8:23 AM CDT documented in this encounter Medications at Time [...] 3 times a day. 100 each 4 amiodarone (PACERONE) 200 mg tablet Take 1 tablet (200 mg total) by mouth 2 (two) times a day for 6 doses 4 02/14/20 24 amiodarone (PACERONE) 200 mg tablet Take 1 tablet (200 mg total) by mouth daily for 3 days 4 02/14/20 24 amiodarone (PACERONE) 400 mg tablet Take 1 tablet (400 mg total) by mouth 2 (two) times a day for 6 doses 4 02/14/20 24 clopidogreL (PLAVIX) 75 mg tablet Take 1 tablet (75 mg total) by mouth daily 4 04/21/20 24 docusate sodium (COLACE) 100 mg capsuleIndications:co nstipation Take 1 capsule (100 mg total) by mouth 2 (two) times a day as needed for constipation 4 02/14/20 24 ergocalciferol (VITAMIN D) 50,000 unit capsule TAKE 1 CAPSULE BY MOUTH ONCE WEEKLY 12 capsule 1 4 03/30/20 24 levothyroxine (SYNTHROID) 88 mcg tablet TAKE 1 TABLET BY MOUTH EVERY DAY 90 tablet 3 3 04/07/20 24 metFORMIN (GLUCOPHAGE) 500 mg tabletIndications:Typ e 2 diabetes mellitus (HCC) Take 1 tablet (500 mg total) by mouth daily 90 tablet 3 3 02/14/20 24 metoprolol XL (TOPROL-XL) 25 mg extended release tablet Take 0.5 tablets (12.5 mg total) by mouth daily Hold for SBP < 100 or HR < 60 4 03/03/20 24 semaglutide (OZEMPIC) 2 mg/dose (8 mg/3 mL) pen injector injection Inject 2 mg under the skin once a week 9 mL 3 4 03/30/20 24 documented as of this encounter Ordered Prescriptions Prescription Sig Dispense Quantity Refills Last Filled Start Date End Date pen needle, diabetic 32 gauge x 5/32 needle Use as directed 3 times a day. 100 each 01/28/2024 insulin lispro (HumaLOG) 100 unit/mL pen for [...] for Sliding Scale Insulin Instructions. 15 mL 01/28/2024 pen needle, diabetic 32 gauge x 5/32 needle Use as directed 3 times a day. 100 each 01/28/2024 pen needle, diabetic (Pen Needle) 32 gauge x 5/32 needle Use as directed once a day. 100 each 01/28/2024 insulin glargine (LANTUS) 100 unit/mL (3 mL) pen for injection Inject 20 Units under the skin daily before breakfast 01/28/2024 oxyCODONE (ROXICODONE) 5 mg immediate release tabletIndications :Pain Take 1 tablet (5 mg total) by mouth every 4 (four) hours as needed for pain 01/28/2024 empagliflozin (Jardiance) 10 mg tabletIndications :Type 2 diabetes mellitus (HCC) Take 1 tablet (10 mg total) by mouth daily 90 tablet 3 01/28/2024 insulin lispro (HumaLOG) 100 unit/mL pen for injection Inject 10 Units under the skin 3 (three) times a day with meals (plus blood glucose mg/dL 150-199: 1 unit, 200-249: 2 units, 250-299: 3 units, 300-349: 4 units, 350 or greater: 5 units. Notify provider for blood glucose greater than 299 mg/dL. Max daily dose 40units) Refer to After Visit Summary for Sliding Scale Insulin Instructions. 15 mL 01/28/2024 4 metoprolol XL (TOPROL-XL) 25 mg extended release tablet Take 0.5 tablets (12.5 mg total) by mouth daily Hold for SBP < 100 or HR < 60 01/29/2024 4 docusate sodium (COLACE) 100 mg capsuleIndication s:constipation Take 1 capsule (100 mg total) by mouth 2 (two) times a day as needed for constipation 01/28/2024 4 clopidogreL (PLAVIX) 75 mg tablet Take 1 tablet (75 mg total) by mouth daily 01/29/2024 4 amiodarone (PACERONE) 400 mg tablet Take 1 tablet (400 mg total) by mouth 2 (two) times a day for 6 doses 01/28/2024 4 amiodarone (PACERONE) 200 mg tablet Take 1 tablet (200 mg total) by mouth daily for 3 days 02/03/2024 4 amiodarone (PACERONE) 200 mg tablet Take 1 tablet (200 mg total) by mouth 2 (two) times a day for 6 doses 01/31/2024 4 documented in this encounter Discharge Disposition Disposition Code Departure Means Destination Comment s Discharge to an Rehab facility [place], [place]) documented in this encounter Progress Notes * Christy Limon RN - 01/28/2024 12:58 PM CDT 01/22/24 1312 Discharge Summary Discharge Disposition Acute Rehab Specify Facility [facility] Facility Contact Number [phone] Bowie Discharge Records Transfer Form Completed;Chart Copied Recommended Discharge Level of Care Acute Rehab Actual Discharge Level of Care Acute Rehab Does Actual Level of Care Match Care Team Recommendation? Yes Post Acute Care Plan Post Acute Care Facility Yes Referral Status Accepted Accepted Post Acute Care Location and Contact [facility] Accepted Post Acute Care Discharge Additional Assistance Does the patient need discharge transport arranged? No (daugther will provide transportation to rehab) Has discharge transport been arranged? No Post Discharge Care Provider Post Discharge Care Plan DC Summary has been faxed to next level of care provider (see Follow Up Providers) Per medical team, patient is medically stable for discharge at this time. Patient has been acceptedto inpatient acute rehabilitation. CM spoke with the patient/family, admissions, medical team, and RN regarding discharge planning, and all are agreeable to discharge. Post-acute care transfer packetcompleted and will be sent with the patient. RN provided with report number to nurses station. Mode of transport has been discussed with the patient/family, MD, nursing staff. All are agreeable to plan and understand their responsibilities to ensure the safe transfer. - daughter providing transportation. * Carol Acosta OT - 01/27/2024 1:45 PM CDT Occupational Therapy Occupational Therapy Progress Note NOTE: This is a summary note of the anthony components of the treatment session. For full details, review chart for all flowsheets documented on by this occupational therapy clinician on this date. Vitalsigns documented in vital signs flowsheet. Care plan progress documented in Care Plan Activity. For questions, please review the treatment team and contact the occupational therapist currently assigned to this patient. If an occupational therapist is not assigned to this patient, please call [phone]. 01/27/24 0704 General Session Type Treatment OT Received On 01/27/24 Safe Environment Arm band checked;Patient found in supine;Gait belt not utilized, see comment Subjective Agreeable to Therapy Family/Caregiver Present No Precautions Precautions Cardiac sternal;Fall risk Pain Assessment Pain Assessment 0-10 Pain Score 5 - Moderate pain Pain Location Incision Balance Balance Yes Static Sitting Balance Static Sitting-Balance Support No upper extremity supported;Feet supported Static Sitting-Sitting Surface Chair Static Sitting-Level of Assistance Independent Dynamic Sitting Balance Dynamic Sitting-Balance Support No upper extremity supported;Feet supported Dynamic Sitting-Balance Lateral lean;Forward lean;Reaching for objects Dynamic Sitting-Sitting Surface Chair Dynamic Sitting-Level of Assistance Close supervision Dynamic Sitting-Comments safety Static Standing Balance Static Standing-Balance Support No upper extremity supported Static Standing-Standing Surface Floor Static Standing-Level of Assistance Close supervision Static Standing-Comment/# of Minutes safety Dynamic Standing Balance Dynamic Standing-Balance Support Bilateral upper extremity supported Dynamic Standing-Balance Lateral lean;Forward lean;Reaching for objects Dynamic Standing-Standing Surface Floor Dynamic Standing-Level of Assistance Contact guard Dynamic Standing-Comments safety ADL ADLS (WDL) X Grooming Grooming: Where assessed Standing at sink Grooming: Level of assistance Standby Assist Grooming: Assistance with Safety LE Dressing LE Dressing: Where assessed Standing;Sitting LE Dressing: Level of assistance Minimum Assist (min task; CGA balance) LE Dressing: Assistance with Don/doff R sock;Don/doff L sock Toileting Toileting: Where assessed Toilet Toileting: Level of assistance Minimum Assist (min task; CGA balance) Toileting: Assistance with Posterior Bed Mobility Bed Mobility Yes Bed Mobility 1 Bed Mobility From 1 Supine Bed Mobility Type 1 To Bed Mobility to 1 Edge of bed Level of Assistance 1 Standby Assist Bed Mobility Comments 1 safety Transfers Transfer Yes Transfer 1 Transfer From 1 Sit Transfer Type 1 To and from Transfer to 1 Stand Technique 1 Sit to stand;Stand to sit Transfer Device 1 Hand held assist Transfer Level of Assistance 1 Contact Guard Assist Trials/Comments 1 safefty Transfers 2 Trials/Comments 2 fuunctional mobility: SBA Toilet Transfers Toilet Transfer From Chair with arms Toilet Transfer Type To and from Toilet Transfer to Standard toilet Toilet Transfer Technique Ambulating Toilet Transfer: Equipment No device Toilet Transfers Contact guard Toilet Transfers Comments safety Cognition Arousal/Alertness Alert Attention Span Appears intact Memory Appears intact Current communication Appears Intact Orientation Oriented X4 (person, place, time, situation) Following Commands Follows all commands and directions without difficulty Safety Judgment Good awareness of safety precautions Awareness of Errors Good awareness of errors made Insight Fully aware of deficits Problem Solving Able to problem solve independently Compliance/Behavior Easy to engage Perseveration Not present Daily Activity - 6 Clicks Putting on and taking off regular lower body clothing 3 Bathing 3 Toileting 3 Putting on and taking off upper body clothing 3 Personal Grooming 3 Eating Meals 4 Total Score (range 6-24) 19 Score Interpretation 40.22 Safe Environment End of Therapy Session Safe Environment End of Therapy Session Patient left in recliner;Call light within reach;Overbed table within reach Assessment Problem List Decreased safe judgment during ADL;Decreased endurance;Decreased balance;Decreased functional mobility;Decreased ADL independence;Decreased IADL independence Barriers to Discharge Current Mobility Status Barrier Comments fall risk Plan Plan Continue with current plan;If this is the last note, consider this the discharge summary Recommendation/Plan OT Recommendation Inpatient Rehab Facility Patient at high risk for Falls;Readmission;Injury due to decreased ability to care for self;Injury due to reduced functional status;Injury due to impaired cognition;Injury due to balance deficits;Injury at home as patient has not returned to prior level of function Recommend Inpatient Rehab/Acute Rehab due to Ability to actively participate in intensive therapy 3hours/day, 5 days/week or 900 minutes per week;Highly motivated to participate in therapy;Impaired ability to complete functional mobility;Likely to return to the community at discharge with support system in place;Not at baseline due to impaired ability to complete ADLs OT Frequency during current admission 3-5x/wk Treatment/Interventions during current admission ADL/IADL retraining;Balance Training;Bed mobility;Endurance training;Functional transfer training;Functional mobility training;Functional activity;Range of motion;Strengthening;Therapeutic activity;Therapeutic exercise;Transfer training Progress during current admission Progressing toward goals OT - Next Appointment 01/29/24 Time Calculation Start Time 1345 Stop Time 1408 Time Calculation (min) 23 min Multi-Disciplinary Problems (from Occupational Therapy) Active Problems Problem: Dressings Lower Extremities Start Date: 01/21/24 Goal Start Date Expected End Date End Date STG - Patient to complete lower body dressing 01/21/24 01/28/24 -- Goal Details: With supervision Problem: Grooming Start Date: 01/21/24 Goal Start Date Expected End Date End Date STG - Patient will complete grooming 01/21/24 01/28/24 -- Goal Details: Standing at sink with supervision Problem: Toileting Start Date: 01/21/24 Goal Start Date Expected End Date End Date STG - Patient will complete toileting tasks with 01/21/24 01/28/24 -- Goal Details: Supervision at toilet in bathroom Problem: Transfers Start Date: 01/21/24 Goal Start Date Expected End Date End Date STG - Patient will perform toilet transfer 01/21/24 01/28/24 -- Goal Details: To toilet in bathroom with supervision Problem: OT Misc Start Date: 01/21/24 Goal Start Date Expected End Date End Date OT LTG - Misc 1 01/21/24 02/04/24 -- Goal Details: Patient will perform ADL tasks with modified independence * Eloisa Freeman NP - 01/27/2024 1:10 PM CDT Cardiac Surgery Daily Progress 01/19: s/p CABG x3, admitted to 8200 intubated, on dobutamine. Extubated overnight. SUBJECTIVE Chief complaint: none Interval History: Working on transfer to [facility], still with hypoglycemic events, reduced insulins again. Plan for d/c tomorrow to [facility], blood sugars should be stable at that point OBJECTIVE Current Facility-Administered Medications: acetaminophen (TYLENOL) tablet 1,000 mg, 1,000 mg, feeding tube, Q6H [facility], Cinthia Stokes PA, 1,000 mg at 01/27/24 1135 [START ON 01/31/2024] amiodarone (PACERONE) tablet 200 mg, 200 mg, oral, BID, Marisela Russell NP [START ON 02/03/2024] amiodarone (PACERONE) tablet 200 mg, 200 mg, oral, Daily, Marisela Russell NP amiodarone (PACERONE) tablet 400 mg, 400 mg, oral, TID, Marisela Russell NP, 400 mg at 01/27/24 0916 [START ON 01/28/2024] amiodarone (PACERONE) tablet 400 mg, 400 mg, oral, BID, Marisela Russell NP aspirin enteric coated tablet 81 mg, 81 mg, oral, Daily, Cinthia Stokes PA, 81 mg at 01/27/24 09 atorvastatin (LIPITOR) tablet 40 mg, 40 mg, feeding tube, Daily, Cinthia Stokes PA, 40 mgat 01/27/24 0916 brimonidine (ALPHAGAN) 0.2 % ophthalmic solution 1 drop, 1 drop, left eye, BID, 1 drop at 01/27/24 1042 AND timolol (TIMOPTIC) 0.5 % ophthalmic solution 1 drop, 1 drop, left eye, BID, Eloisa Freeman, JAMES, 1 drop at 01/27/24 1042 cholecalciferol (VITAMIN D-3) capsule 1,000 Units, 1,000 Units, oral, Daily, Eloisa Freeman NP, 1,000 Units at 01/27/24 0916 clopidogreL (PLAVIX) tablet 75 mg, 75 mg, oral, Daily, Cinthia Stokes PA, 75 mg at 01/27/24 0917 dextrose gel in packet 15 g, 15 g, oral, Q15 Min PRN, 15 g at 01/23/24 1716 OR dextrose (D10W) 10% bolus 250 mL, 250 mL, intravenous, Q15 Min PRN, Yojana Macdonald NP docusate sodium (COLACE) capsule 100 mg, 100 mg, oral, BID, 100 mg at 01/27/24 0916 OR docusate(COLACE) 10 mg/mL oral liquid 100 mg, 100 mg, feeding tube, BID, Cinthia Stokes PA, 100 mg at 01/20/242020 furosemide (LASIX) tablet 20 mg, 20 mg, oral, Daily, Nii Garces NP, 20 mg at 01/27/24 0916 glucagon injection 1 mg, 1 mg, intramuscular, Q30 Min PRN, Yojana Macdonald NP guaiFENesin ER (MUCINEX) extended release tablet 600 mg, 600 mg, oral, BID, Nii Garces NP, 600 mg at 01/27/24 0916 insulin glargine (LANTUS, SEMGLEE) 100 unit/mL injection 20 Units, 20 Units, subcutaneous, Nightly,Vanita Ware NP insulin lispro (HumaLOG, ADMELOG) 100 unit/mL injection 0-4 Units, 0-4 Units, subcutaneous, Nightly, Vanita Ware NP insulin lispro (HumaLOG, ADMELOG) 100 unit/mL injection 0-5 Units, 0-5 Units, subcutaneous, TID with meals, Vanita Ware NP insulin lispro (HumaLOG, ADMELOG) 100 unit/mL injection 6 Units, 6 Units, subcutaneous, TID PC, Vanita Ware NP, 6 Units at 01/27/24 1246 latanoprost (XALATAN) 0.005 % ophthalmic solution 1 drop, 1 drop, each eye, Nightly, Eloisa Freeman NP levothyroxine (SYNTHROID) tablet 88 mcg, 88 mcg, feeding tube, Daily - 0600, Cinthia Stokes PA, 88 mcg at 01/27/24 0621 lidocaine (ASPERCREME) 4 % patch 2 patch, 2 patch, transdermal, Q24H, Aba Johnson NP metoprolol tartrate (LOPRESSOR) immediate release tablet 12.5 mg, 12.5 mg, oral, BID, Andres Garces NP, 12.5 mg at 01/27/24 0917 ondansetron (ZOFRAN) injection 4 mg, 4 mg, intravenous, Q6H PRN, Cinthia Stokes PA, 4 mg at 01/22/24 151 oxyCODONE (ROXICODONE) tablet 5 mg, 5 mg, oral, Q4H PRN, Stan Treviño MD, 5 mg at 01/26/242108 polyethylene glycol (MIRALAX) packet 17 g, 17 g, oral, Daily, Cinthia Stokes PA, 17 g at 01/26/24 08 prochlorperazine (COMPAZINE) injection 5 mg, 5 mg, intravenous, Q6H PRN, Cinthia Stokes PA, 5 mg at 01/21/24 08 senna (SENOKOT) tablet 1 tablet, 1 tablet, oral, BID, 1 tablet at 01/27/24917 OR [DISCONTINUED] senna 1.76 mg/mL syrup 8.8 mg, 8.8 mg, feeding tube, BID, Cinthia Stokes PA, 8.8 mg at 01/20/242020 Vitals: 24hr Min/Max: Temp Min: 36.5 ??C (97.7 ??F) Max: 36.9 ??C (98.4 ??F) Pulse Min: 65 Max: 85 BP Min: 103/54 Max: 120/57 Resp Min: 16 Max: 18 SpO2 Min: 97 % Max: 100 % Most Recent : Vitals: 01/27/24 1119 BP: 111/61 Pulse: 70 Resp: 18 Temp: 36.8 ??C (98.2 ??F) SpO2: 98% I/O last 2 completed shifts: In: 750 [P.O.:750] Out: 1400 [Urine:1400] I/O this shift: In: - Out: 1000 [Urine:1000] Physical Exam: Physical Exam Vitals reviewed. Constitutional: Appearance: Normal appearance. She is obese. Cardiovascular: Rate and Rhythm: Normal rate and regular rhythm. Comments: RRR 70s Pulmonary: Effort: Pulmonary effort is normal. Breath sounds: Normal breath sounds. Comments: On RA Abdominal: General: Bowel sounds are normal. Palpations: Abdomen is soft. Comments: Having Bms per pt report Appetite good Musculoskeletal: Cervical back: Normal range of motion. Right lower leg: Edema present. Left lower leg: Edema present. Comments: Trace edema Skin: General: Skin is warm and dry. Neurological: General: No focal deficit present. Mental Status: She is alert and oriented to person, place, and time. Psychiatric: Mood and Affect: Mood normal. Behavior: Behavior normal. Lab/Radiology/Diagnostic Review: Laboratory review: Lab results in the last 24 hours: ASSESSMENT/PLAN AF (paroxysmal atrial fibrillation) (CMS/HCC) ([facility]) Assessment & Plan Short episode of AF with RVR 01/24 - converted with 1 amio bolus and then placed on drip at 1 mg DCd amio gtt and started po amiod load Qtc today 491 Today NSR 83 Cont tele No need for anticoagulation unless recurrent and sustained. ABLA (acute blood loss anemia) Assessment & Plan As expected post op- H/H stable - daily CBC - consider blood transfusion if hgb <7 and hemodynamically unstable Obesity Assessment & Plan - BMI 40.32 on admission - provide bariatric equipment DM2 (diabetes mellitus, type 2) ([facility]) Assessment & Plan - Hemoglobin A1c 5.9 % on admission - consistent carb diet - continue basal bolus SSI with post prandial coverage Endocrine following. Continues to have labile BS- again dropped to 73, have adjusted insulins Holding her discharge to [facility] today due to hypoglycemic episodes, plan for d/c tomorrow if bed available * Coronary artery disease Assessment & Plan - s/p CABG x3 (AGOSTO to LAD, vein to OM, mariano to [...] will insulate- plan to cut at dc Eloisa Freeman NP 01/27/2024 Cosigned by Stan Treviño MD at 02/02/2024 8:52 AM CDT * Ashley Iverson, RD - 01/27/2024 8:02 AM CDT Nutrition Screen Note Pt. Screened for nutritional assessment secondary to LOS 01/19: s/p CABG x3, Past Medical History: Diagnosis Date Actinic keratosis 07/17/2012 Age-related osteoporosis without current pathological fracture 04/29/2023 Cataract CHF (congestive heart failure) ([facility]/HCC) ([facility]) Clavicle enlargement 06/16/2018 Will image to determine etiology. Coronary artery disease Coronary artery disease due to calcified coronary lesion 01/20/2024 Diabetes mellitus (HCC) Diabetic neuropathy (HCC) 01/21/2024 Diabetic retinopathy (HCC) Glaucoma Hypertension Hypothyroidism 11/13/2014 Knee pain 01/04/2015 [...] 12/09/2017 Type 2 diabetes mellitus with hyperlipidemia ([facility]) 12/07/2016 Last A1C 5.9%, without complication Vitamin D deficiency 04/01/2019 Past Surgical History: Procedure Laterality Date CATARACT EXTRACTION Right 06/14/2022 CE/IOL + goniotomy [place] APPENDECTOMY unkown dates per pt [place] DELIVERY ONLY Section - in 1972 and 1975 (Added by TW Conv) [place] TENDON SHEATH INCISION Hand Incision Tendon Sheath Of A Finger - right hand, III finger, 08/20 (Added by TW Conv) Anthropometrics Weight: 93.1 kg (205 lb 4.8 oz) Admission Weight : 92.3 kg Weight Change: -1.17 kg (-2.59 lbs) IBW/kg (Calculated) : 43.1 kg Height: 149.9 cm (4' 11.02 ) Weight in (lb) to have BMI = 25: 123.6 BMI (Calculated): 41.4 Dietary Orders (From admission, onward) Start Ordered 01/21/24 2100 Bedtime snack At bedtime Comments: If bedtime BG is less than 100mg/dl, give patient a 15 gram carbohydrate snack. 01/21/24 1733 01/21/24 1346 Adult Diet Restricted; Low Fat, Low Chol; Consistent Carbohydrate Diet effective now Question Answer Comment (BJ) Diet type Restricted Fat / Sodium Restriction: Low Fat, Low Chol Diabetic: Consistent Carbohydrate 01/21/24 1345 Assessment / Impression: The pt states her appetite has been improving since surgery. She is [id number]% of her meals. She is no longer drinking the Glucerna shakes. Order cancelled. Last BM 01/26. Awaiting rehab bed. Ashley Iverson RD [phone] * Eloisa Freeman NP - 01/26/2024 1:26 PM CDT Cardiac Surgery Daily Progress 01/19: s/p CABG x3 SUBJECTIVE Chief complaint: none Interval History: hypoglycemic x 2 - decreased the lantus today. Remains in NSR. Planning for [facility] at [place] OBJECTIVE Current Facility-Administered Medications: acetaminophen (TYLENOL) tablet 1,000 mg, 1,000 mg, feeding tube, Q6H [facility], Cinthia Stokes PA, 1,000 mg at 01/26/24 0434 [START ON 01/31/2024] amiodarone (PACERONE) tablet 200 mg, 200 mg, oral, BID, Marisela Russell, WHEELCHAIR VAN OPERATOR FIRST RESPONDER [START ON 02/03/2024] amiodarone (PACERONE) tablet 200 mg, 200 mg, oral, Daily, Marisela Russell, WHEELCHAIR VAN OPERATOR FIRST RESPONDER amiodarone (PACERONE) tablet 400 mg, 400 mg, oral, TID, Marisela Russell, WHEELCHAIR VAN OPERATOR FIRST RESPONDER, 400 mg at 01/26/24 0827 [START ON 01/28/2024] amiodarone (PACERONE) tablet 400 mg, 400 mg, oral, BID, Marisela Russell, JAMES aspirin enteric coated tablet 81 mg, 81 mg, oral, Daily, Cinthia Stokes PA, 81 mg at 01/26/24 0828 atorvastatin (LIPITOR) tablet 40 mg, 40 mg, feeding tube, Daily, Cinthia Stokes PA, 40 mgat 01/26/24827 clopidogreL (PLAVIX) tablet 75 mg, 75 mg, oral, Daily, Cinthia Stokes PA, 75 mg at 01/26/24827 dextrose gel in packet 15 g, 15 g, oral, Q15 Min PRN, 15 g at 01/23/24 1716 OR dextrose (D10W) 10% bolus 250 mL, 250 mL, intravenous, Q15 Min PRN, Yojana Macdonald NP docusate sodium (COLACE) capsule 100 mg, 100 mg, oral, BID, 100 mg at 01/26/24827 OR docusate(COLACE) 10 mg/mL oral liquid 100 mg, 100 mg, feeding tube, BID, Cinthia Stokes PA, 100 mg at 01/20/242020 furosemide (LASIX) tablet 20 mg, 20 mg, oral, Daily, Nii Garces NP, 20 mg at 01/26/24827 glucagon injection 1 mg, 1 mg, intramuscular, Q30 Min PRN, Yojana Macdonald NP guaiFENesin ER (MUCINEX) extended release tablet 600 mg, 600 mg, oral, BID, Nii Garces NP, 600 mg at 01/26/24827 insulin glargine (LANTUS, SEMGLEE) 100 unit/mL injection 24 Units, 24 Units, subcutaneous, Nightly,Eloisa Freeman NP insulin lispro (HumaLOG, ADMELOG) 100 unit/mL injection 0-10 Units, 0-10 Units, subcutaneous, TID with meals, Yojana Macdonald NP, 4 Units at 01/25/24 1236 insulin lispro (HumaLOG, ADMELOG) 100 unit/mL injection 0-5 Units, 0-5 Units, subcutaneous, Nightly, Yojana Macdonald NP, 1 Units at 01/24/24 194 insulin lispro (HumaLOG, ADMELOG) 100 unit/mL injection 8 Units, 8 Units, subcutaneous, TID PC, Cordell Roberts MD, 8 Units at 01/26/24 1254 levothyroxine (SYNTHROID) tablet 88 mcg, 88 mcg, feeding tube, Daily - 0600, Cinthia Stokes PA, 88 mcg at 01/26/24 0434 lidocaine (ASPERCREME) 4 % patch 2 patch, 2 patch, transdermal, Q24H, Aba Johnson NP metoprolol tartrate (LOPRESSOR) immediate release tablet 12.5 mg, 12.5 mg, oral, BID, Andres Garces NP, 12.5 mg at 01/26/24 0828 ondansetron (ZOFRAN) injection 4 mg, 4 mg, intravenous, Q6H PRN, Cinthia Stokes PA, 4 mg at 01/22/24 151 oxyCODONE (ROXICODONE) tablet 5 mg, 5 mg, oral, Q4H PRN, Stan Treviño MD, 5 mg at 01/26/24 08 polyethylene glycol (MIRALAX) packet 17 g, 17 g, oral, Daily, Cinthia Stokes PA, 17 g at 01/26/24 0828 prochlorperazine (COMPAZINE) injection 5 mg, 5 mg, intravenous, Q6H PRN, Cinthia Stokes PA, 5 mg at 01/21/24 08 senna (SENOKOT) tablet 1 tablet, 1 tablet, oral, BID, 1 tablet at 01/26/24 0828 OR [DISCONTINUED] senna 1.76 mg/mL syrup 8.8 mg, 8.8 mg, feeding tube, BID, Cinthia Stokes PA, 8.8 mg at 01/20/242020 Vitals: 24hr Min/Max: Temp Min: 36.1 ??C (97 ??F) Max: 36.8 ??C (98.2 ??F) Pulse Min: 71 Max: 88 BP Min: 104/93 Max: 135/50 Resp Min: 16 Max: 19 SpO2 Min: 96 % Max: 100 % Most Recent : Vitals: 01/26/24 1204 BP: 104/93 Pulse: 73 Resp: 18 Temp: 36.5 ??C (97.7 ??F) SpO2: 100% I/O last 2 completed shifts: In: 250 [P.O.:250] Out: 1550 [Urine:1550] I/O this shift: In: 500 [P.O.:500] Out: 800 [Urine:800] Physical Exam: Physical Exam Vitals reviewed. Constitutional: Appearance: Normal appearance. She is obese. Cardiovascular: Rate and Rhythm: Normal rate and regular rhythm. Comments: RRR 70s Pulmonary: Effort: Pulmonary effort is normal. Breath sounds: Normal breath sounds. Comments: On RA Abdominal: General: Bowel sounds are normal. Palpations: Abdomen is soft. Comments: Having Bms per pt report Appetite good Musculoskeletal: Cervical back: Normal range of motion. Right lower leg: Edema present. Left lower leg: Edema present. Comments: Trace edema Skin: General: Skin is warm and dry. Neurological: General: No focal deficit present. Mental Status: She is alert and oriented to person, place, and time. Psychiatric: Mood and Affect: Mood normal. Behavior: Behavior normal. Lab/Radiology/Diagnostic Review: Laboratory review: Lab results in the last 24 hours: Recent Results (from the past 24 hour(s)) POCT glucose Collection Time: 01/25/24 5:00 PM Result Value Ref Range Glucose, POC 61 (L) 70 - 199 mg/dL POCT glucose Collection Time: 01/25/24 5:16 PM Result Value Ref Range Glucose, POC 72 70 - 199 mg/dL POCT glucose Collection Time: 01/25/24 5:32 PM Result Value Ref Range Glucose, POC 111 70 - 199 mg/dL POCT glucose Collection Time: 01/25/24 6:40 PM Result Value Ref Range Glucose, POC 197 70 - 199 mg/dL POCT glucose Collection Time: 01/25/24 9:39 PM Result Value Ref Range Glucose, POC 146 70 - 199 mg/dL Magnesium Collection Time: 01/25/24 9:40 PM Result Value Ref Range Magnesium 2.1 1.4 - 2.5 mg/dL Phosphorus Collection Time: 01/25/24 9:40 PM Result Value Ref Range Phosphorus, pl 4.2 2.3 - 4.5 mg/dL Basic metabolic panel Collection Time: 01/25/24 9:40 PM Result Value Ref Range Sodium 141 135 - 145 mmol/L Potassium, pl 3.6 3.3 - 4.9 mmol/L Chloride 105 97 - 110 mmol/L CO2 26 22 - 32 mmol/L Anion gap 10 2 - 15 mmol/L BUN 36 (H) 6 - 25 mg/dL Creatinine 1.30 (H) 0.60 - 1.10 mg/dL Glucose 131 70 - 199 mg/dL Calcium 8.6 8.5 - 10.3 mg/dL CBC without differential Collection Time: 01/25/24 9:40 PM Result Value Ref Range WBC 8.6 3.8 - 9.9 K/cumm Hgb 8.5 (L) 11.9 - 15.5 g/dL Hct 26.8 (L) 35.6 - 45.5 % Plt 210 150 - 400 K/cumm MPV 11.3 9.1 - 12.3 fL RBC 2.95 (L) 3.90 - 5.20 M/cumm MCV 90.8 81.3 - 96.4 fL MCH 28.8 27.1 - 33.3 pg MCHC 31.7 (L) 32.3 - 35.7 g/dL RDW CV 13.8 11.1 - 14.9 % RDW SD 45.3 35.7 - 48.1 fL NRBC abs 0.00 0.00 - 0.01 K/cumm eGFR Collection Time: 01/25/24 9:40 PM Result Value Ref Range eGFR 43 (L) >=60 mL/min/1.73 m2 POCT glucose Collection Time: 01/26/24 2:43 AM Result Value Ref Range Glucose, POC 83 70 - 199 mg/dL POCT glucose Collection Time: 01/26/24 4:31 AM Result Value Ref Range Glucose, POC 64 (L) 70 - 199 mg/dL POCT glucose Collection Time: 01/26/24 5:01 AM Result Value Ref Range Glucose, POC 107 70 - 199 mg/dL POCT glucose Collection Time: 01/26/24 6:38 AM Result Value Ref Range Glucose, POC 111 70 - 199 mg/dL POCT glucose Collection Time: 01/26/24 8:18 AM Result Value Ref Range Glucose, POC 94 70 - 199 mg/dL POCT glucose Collection Time: 01/26/24 12:02 PM Result Value Ref Range Glucose, POC 150 70 - 199 mg/dL ASSESSMENT/PLAN AF (paroxysmal atrial fibrillation) (CMS/HCC) (HCC) Assessment & Plan Short episode of AF with RVR 01/24 - converted with 1 amio bolus and then placed on drip at 1 mg DCd amio gtt and started po amiod load Qtc today 492 Today NSR 73 Cont tele No need for anticoagulation unless recurrent and sustained. ABLA (acute blood loss anemia) Assessment & Plan As expected post op- H/H stable - daily CBC - consider blood transfusion if hgb <7 and hemodynamically unstable Obesity Assessment & Plan - BMI 40.32 on admission - provide bariatric equipment DM2 (diabetes mellitus, type 2) ([facility]) Assessment & Plan - Hemoglobin A1c 5.9 % on admission - consistent carb diet - continue basal bolus SSI with post prandial coverage Endocrine following. Continues to have labile BS- await current recs. * Coronary artery disease Assessment & Plan - s/p CABG x3 (AGOSTO to LAD, vein to OM, mariano to PDA), TONY clip, sternal plating by Dr. Treviño. - ASA, plavix, statin, Metop - Aggressive pulmonary toilet, acapella, IS, OOBC - continue bowel regimen - EPW + cut at discharge - monitor on telemetry - PT/OT - daily CBC, BMP- - titrate metoprolol as tolerated - lasix 20 daily for diuresis PW- will insulate- plan to cut at dc Eloisa Freeman NP 01/26/2024 Cosigned by Stan Treviño MD at 02/02/2024 8:49 AM CDT * Hazel Burroughs, PT - 01/26/2024 10:43 AM CDT Physical Therapy Progress Note NOTE: This is a summary note of the anthony components of the treatment session. For full details, review chart for all flowsheets documented on by this physical therapy clinician on this date. Vital signs documented in vital signs flowsheet. Care plan progress documented in Care Plan Activity. For questions, please review the treatment team and contact the PT or HEEL SEAT TRIMMER currently assigned to this patient. If a physical therapy clinician is not assigned to this patient, please call [phone]. Multi-Disciplinary Problems (from Physical Therapy) Active Problems Problem: Mobility Start Date: 01/22/24 Goal Start Date Expected End Date End Date STG - Patient will ambulate 01/22/24 01/29/24 -- Goal Details: 300ft LRD and supervision Goal Start Date Expected End Date End Date STG - Patient will ambulate up and down a curb/step 01/22/24 01/29/24 -- Goal Details: With supervision Problem: Transfers Start Date: 01/22/24 Goal Start Date Expected End Date End Date STG - Transfer from bed to chair 01/22/24 01/29/24 -- Goal Details: Supervision Goal Start Date Expected End Date End Date STG - Patient to transfer to and from sit to supine 01/22/24 01/29/24 -- Goal Details: Supervision Goal Start Date Expected End Date End Date STG - Patient will transfer sit to and from stand 01/22/24 01/29/24 -- Goal Details: Supervision Problem: PT Misc Start Date: 01/22/24 Goal Start Date Expected End Date End Date PT STG - Misc 1 01/22/24 01/29/24 -- Goal Details: Patient and caregivers will participate in and demonstrate understanding of therapeutic exercise and safe mobility strategies to improve independence with functional mobility. Physical Therapy 01/26/24 1043 PT Last Visit Session Type Treatment PT Received On 01/26/24 Safe Environment Arm band checked;Patient found in supine;Gait belt not utilized, see comment (location of incision) Subjective Agreeable to Therapy Family/Caregiver Present Yes Precautions Precautions Cardiac sternal;Fall risk Activity Tolerance Activity Tolerance Comments Blas : SH Bed Mobility 1 Bed Mobility From 1 Supine Bed Mobility Type 1 To and from Bed Mobility to 1 Edge of bed Level of Assistance 1 Minimum Assist Bed Mobility Comments 1 trunk elevation, LE management Transfer 1 Transfer From 1 Sit Transfer Type 1 To and from Transfer to 1 Stand Transfer Device 1 Hand held assist Transfer Level of Assistance 1 Contact Guard Assist;Minimum Assist Trials/Comments 1 force production, safety Ambulation 1 Distance (ft) 1 65 (200ft total; 3 standing breaks) Surface 1 Level tile Device 1 Hand held assist;Wheeled walker Other Apparatus 1 Wheelchair follow Assistance 1 Contact Guard Assist;Minimum Assist Gait: Requires assist with 1 Maintaining balance Gait: Requires verbal cues to 1 Use assistive device safely;Follow precautions/weight bearing status;Increase base of support;Pace activity;Utilize pursed lip breathing Gait Deviations 1 Base of support - decreased;Neena - decreased;Heel strike - decreased;Step length - decreased Basic Mobility - 6 Click How much difficulty does the patient have: Turning over in bed 3 How much difficulty does the patient currently have: Sitting down and standing up from a chair witharms? 3 How much difficulty does the patient have: Moving from lying on back to sitting on the side of the bed? 3 How much difficulty does the patient have: Moving to and from a bed to a chair including wheelchair? 3 How much help does the patient currently need: Walk in hospital room? 3 How much help from another person does the patient currently need: Climbing 3-5 steps with a railing? 2 Total 6 Click Score (range 6-24) 17 Score Interpretation 39.67 Safe Environment End of Therapy Session Safe Environment End of Therapy Session Patient left supine in bed;RN notified;Call light within reach;Overbed table within reach Assessment Prognosis Good Problem List Gait deviations;Decreased strength;Decreased endurance;Impaired balance;Decreased mobility;Decreased active movement Plan Plan Continue with current plan;If this is the last note, consider this the discharge summary Recommendation/Plan PT Recommendation/Plan Inpatient Rehab Facility Patient at high risk for Falls;Readmission;Injury due to decreased ability to care for self;Injury due to reduced functional status;Injury due to balance deficits;Injury at home as patient has not returned to prior level of function Recommend Inpatient Rehab/Acute Rehab due to Ability to actively participate in intensive therapy 3hours/day, 5 days/week or 900 minutes per week;Highly motivated to participate in therapy;Not at baseline due to impaired ability to complete ADLs;Impaired ability to complete functional mobility;Likely to return to the community at discharge with support system in place;Requires greater than 25% physical assistance with most mobility tasks PT Frequency during current admission 3-5x/wk Treatment/Interventions during current admission Balance Training;Bed mobility;Endurance training;Equipment eval/education;Functional activity;Functional transfer training;Gait training;Therapeutic activity PT - Next Appointment 01/28/24 Time Calculation Start Time 1020 Stop Time 1043 Time Calculation (min) 23 min * Marisela Russell WHEELCHAIR VAN OPERATOR FIRST RESPONDER - 01/25/2024 12:52 PM CDT Cardiac Surgery Daily Progress 5 Days Post-Op CABG x 3 SUBJECTIVE Chief complaint of I didn't get much sleep last night because they kept poking me . Interval History: short episode AF with RVR overnight converted with amio bolus and then placed on gtt. Converted to oral amio this am. Remains NSR. OBJECTIVE Current Facility-Administered Medications: acetaminophen (TYLENOL) tablet 1,000 mg, 1,000 mg, feeding tube, Q6H LAMONTE, Cinthia Stokes PA, 1,000 mg at 01/25/24 1116 [START ON 01/31/2024] amiodarone (PACERONE) tablet 200 mg, 200 mg, oral, BID, Marisela Russell L., WHEELCHAIR VAN OPERATOR FIRST RESPONDER [START ON 02/03/2024] amiodarone (PACERONE) tablet 200 mg, 200 mg, oral, Daily, Torsten Russella L., WHEELCHAIR VAN OPERATOR [employer] RESPONDER amiodarone (PACERONE) tablet 400 mg, 400 mg, oral, TID, Torsten Russella L., WHEELCHAIR VAN OPERATOR FIRST RESPONDER [START ON 01/28/2024] amiodarone (PACERONE) tablet 400 mg, 400 mg, oral, BID, Torsten Russella L., WHEELCHAIR VAN OPER[employer] RESPONDER aspirin enteric coated tablet 81 mg, 81 mg, oral, Daily, Cinthia Stokes PA, 81 mg at 01/25/24926 atorvastatin (LIPITOR) tablet 40 mg, 40 mg, feeding tube, Daily, Cinthia Stokes PA, 40 mgat 01/25/24926 chlorhexidine (PERIDEX) 0.12 % solution 15 mL, 15 mL, mouth/throat, TID, Cinthia Stokes PA, 15 mL at 01/25/24926 clopidogreL (PLAVIX) tablet 75 mg, 75 mg, oral, Daily, Cinthia Stokes PA, 75 mg at 01/25/24926 dextrose gel in packet 15 g, 15 g, oral, Q15 Min PRN, 15 g at 01/23/24 1716 OR dextrose (D10W) 10% bolus 250 mL, 250 mL, intravenous, Q15 Min PRN, Yojana Macdonald NP docusate sodium (COLACE) capsule 100 mg, 100 mg, oral, BID, 100 mg at 01/25/24926 OR docusate(COLACE) 10 mg/mL oral liquid 100 mg, 100 mg, feeding tube, BID, Cinthia Stokes PA, 100 mg at 01/20/242020 furosemide (LASIX) tablet 20 mg, 20 mg, oral, Daily, Nii Garces NP, 20 mg at 01/25/24926 glucagon injection 1 mg, 1 mg, intramuscular, Q30 Min PRN, Yojana Macdonald NP guaiFENesin ER (MUCINEX) extended release tablet 600 mg, 600 mg, oral, BID, Nii Garces NP, 600 mg at 01/25/24926 HYDROmorphone (DILAUDID) injection 0.2 mg, 0.2 mg, intravenous, Q2H PRN, Stan Treviño MD, 0.2 mg at 01/22/24948 insulin glargine (LANTUS, SEMGLEE) 100 unit/mL injection 32 Units, 32 Units, subcutaneous, Nightly,Jennyfer Gaffney MD, 32 Units at 01/24/241948 insulin lispro (HumaLOG, ADMELOG) 100 unit/mL injection 0-10 Units, 0-10 Units, subcutaneous, TID with meals, Yojana Macdonald NP, 4 Units at 01/25/241235 insulin lispro (HumaLOG, ADMELOG) 100 unit/mL injection 0-5 Units, 0-5 Units, subcutaneous, Nightly, Yojana Macdonald NP, 1 Units at 01/24/241948 insulin lispro (HumaLOG, ADMELOG) 100 unit/mL injection 8 Units, 8 Units, subcutaneous, TID PC, Vanita Ware NP, 8 Units at 01/25/241235 levothyroxine (SYNTHROID) tablet 88 mcg, 88 mcg, feeding tube, Daily - 0600, Cinthia Stokes PA, 88 mcg at 01/25/24 0533 lidocaine (ASPERCREME) 4 % patch 2 patch, 2 patch, transdermal, Q24H, Aba Johnson NP metoprolol tartrate (LOPRESSOR) immediate release tablet 12.5 mg, 12.5 mg, oral, BID, Andres Garces NP, 12.5 mg at 01/25/24 09 ondansetron (ZOFRAN) injection 4 mg, 4 mg, intravenous, Q6H PRN, Cinthia Stokes PA, 4 mg at 01/22/24 1519 oxyCODONE (ROXICODONE) tablet 5 mg, 5 mg, oral, Q4H PRN, Stan Treviño MD, 5 mg at 01/25/24 1116 polyethylene glycol (MIRALAX) packet 17 g, 17 g, oral, Daily, Cinthia Stokes PA, 17 g at 01/23/24 1005 prochlorperazine (COMPAZINE) injection 5 mg, 5 mg, intravenous, Q6H PRN, Cinthia Stokes PA, 5 mg at 01/21/24 0825 senna (SENOKOT) tablet 1 tablet, 1 tablet, oral, BID, 1 tablet at 01/25/24926 OR [DISCONTINUED] senna 1.76 mg/mL syrup 8.8 mg, 8.8 mg, feeding tube, BID, Cinthia Stokes PA, 8.8 mg at 01/20/242020 sodium phosphate - potassium phosphate (K-PHOS NEUTRAL) tablet 250 mg, 250 mg, oral, TID with meals, Bri Lindo NP, 250 mg at 01/25/24 1236 Vitals: 24hr Min/Max: Temp Min: 36.5 ??C (97.7 ??F) Max: 37 ??C (98.6 ??F) Pulse Min: 72 Max: 172 BP Min: 92/46 Max: 133/60 Resp Min: 18 Max: 20 SpO2 Min: 98 % Max: 100 % Most Recent : Vitals: 01/25/24 1110 BP: 120/61 Pulse: 72 Resp: 18 Temp: 36.5 ??C (97.7 ??F) SpO2: 100% I/O last 2 completed shifts: In: 1011.6 [P.O.:900; I.V.:111.6] Out: 1300 [Urine:1300] No intake/output data recorded. Physical Exam: Physical Exam Vitals reviewed. Constitutional: Appearance: Normal appearance. HENT: Head: Normocephalic. Mouth/Throat: Mouth: Mucous membranes are moist. Eyes: Pupils: Pupils are equal, round, and reactive to light. Cardiovascular: Rate and Rhythm: Normal rate and regular rhythm. Pulses: Normal pulses. Heart sounds: No murmur heard. Pulmonary: Effort: Pulmonary effort is normal. No respiratory distress. Breath sounds: Normal breath sounds. Abdominal: General: Abdomen is flat. Bowel sounds are normal. There is no distension. Palpations: Abdomen is soft. Tenderness: There is no abdominal tenderness. Skin: General: Skin is warm and dry. Comments: Prevena to sternal wound Neurological: General: No focal deficit present. Mental Status: She is alert and oriented to person, place, and time. Psychiatric: Mood and Affect: Mood normal. Behavior: Behavior normal. Lab/Radiology/Diagnostic Review: Laboratory review: Lab results in the last 24 hours: Recent Results (from the past 24 hour(s)) POCT glucose Collection Time: 01/24/24 4:26 PM Result Value Ref Range Glucose, POC 97 70 - 199 mg/dL POCT glucose Collection Time: 01/24/24 7:27 PM Result Value Ref Range Glucose, POC 161 70 - 199 mg/dL Magnesium Collection Time: 01/24/24 8:13 PM Result Value Ref Range Magnesium 2.0 1.4 - 2.5 mg/dL Phosphorus Collection Time: 01/24/24 8:13 PM Result Value Ref Range Phosphorus, pl 3.1 2.3 - 4.5 mg/dL Basic metabolic panel Collection Time: 01/24/24 8:13 PM Result Value Ref Range Sodium 143 135 - 145 mmol/L Potassium, pl 4.0 3.3 - 4.9 mmol/L Chloride 108 97 - 110 mmol/L CO2 23 22 - 32 mmol/L Anion gap 12 2 - 15 mmol/L BUN 33 (H) 6 - 25 mg/dL Creatinine 1.06 0.60 - 1.10 mg/dL Glucose 140 70 - 199 mg/dL Calcium 8.2 (L) 8.5 - 10.3 mg/dL CBC without differential Collection Time: 01/24/24 8:13 PM Result Value Ref Range WBC 8.6 3.8 - 9.9 K/cumm Hgb 8.5 (L) 11.9 - 15.5 g/dL Hct 27.3 (L) 35.6 - 45.5 % Plt 169 150 - 400 K/cumm MPV 11.1 9.1 - 12.3 fL RBC 2.96 (L) 3.90 - 5.20 M/cumm MCV 92.2 81.3 - 96.4 fL MCH 28.7 27.1 - 33.3 pg MCHC 31.1 (L) 32.3 - 35.7 g/dL RDW CV 13.9 11.1 - 14.9 % RDW SD 46.5 35.7 - 48.1 fL NRBC abs 0.00 0.00 - 0.01 K/cumm eGFR Collection Time: 01/24/24 8:13 PM Result Value Ref Range eGFR 55 (L) >=60 mL/min/1.73 m2 POCT glucose Collection Time: 01/25/24 2:02 AM Result Value Ref Range Glucose, POC 109 70 - 199 mg/dL POCT glucose Collection Time: 01/25/24 8:28 AM Result Value Ref Range Glucose, POC 124 70 - 199 mg/dL POCT glucose Collection Time: 01/25/24 11:10 AM Result Value Ref Range Glucose, POC 221 (H) 70 - 199 mg/dL ASSESSMENT/PLAN AF (paroxysmal atrial fibrillation) ([facility]/HCC) ([facility]) Assessment & Plan Short episode of AF with RVR overnight- converted with 1 amio bolus and then placed on drip at 1 mg DC amio gtt this am and place on amiodarone po load/wean Cont tele No need for anticoagulation unless recurrent and sustained. Leucocytosis Assessment & Plan - Elevated WBC level post cardiac surgery - WBC now WNL - pt. remained afebrile - continue to trend. Daily CBC ABLA (acute blood loss anemia) Assessment & Plan As expected post op- H/H stable - daily CBC - consider blood transfusion if hgb <7 and hemodynamically unstable Obesity Assessment & Plan - BMI 40.32 on admission - provide bariatric equipment DM2 (diabetes mellitus, type 2) ([facility]) Assessment & Plan - Hemoglobin A1c 5.9 % on admission - consistent carb diet - continue basal bolus SSI with post prandial coverage Endocrine following. Continues to have some elevated BS- await current recs. * Coronary artery disease Assessment & Plan - s/p CABG x3 (AGOSTO to LAD, vein to OM, mariano to PDA), TONY clip, sternal plating by Dr. Terviño. - ASA, plavix, statin, Metop - Aggressive pulmonary toilet, acapella, IS, OOBC - continue bowel regimen - EPW to VVI60 - monitor on telemetry - PT/OT - daily CBC, BMP- - titrate metoprolol as tolerated - lasix 20 daily for diuresis PW- will insulate- plan to cut at dc Marisela Russell NP 01/25/2024 Cosigned by Stan Treviño MD at 02/02/2024 6:26 PM CDT * Nii Garces NP - 01/24/2024 12:30 PM CDT Cardiac Surgery Daily Progress 4 Days Post-Op SUBJECTIVE Chief complaint of feeling better. Interval History: Short episode of afib this morning, now back to NSR. Metop increased to 12.5 mg BID with parameters. Chest xray post CT removal showed small lung volume with patchy area of atelectasis. Potential discharge to rehab over the weekend. OBJECTIVE Current Facility-Administered Medications: acetaminophen (TYLENOL) tablet 1,000 mg, 1,000 mg, feeding tube, Q6H [facility], Cinthia Stokes PA, 1,000 mg at 01/24/24 0527 aspirin enteric coated tablet 81 mg, 81 mg, oral, Daily, Cinthia Stokes PA, 81 mg at 01/24/24 0851 atorvastatin (LIPITOR) tablet 40 mg, 40 mg, feeding tube, Daily, Cinthia Stokes PA, 40 mgat 01/24/24 0851 chlorhexidine (PERIDEX) 0.12 % solution 15 mL, 15 mL, mouth/throat, TID, Cinthia Stokes PA, 15 mL at 01/24/24 0851 clopidogreL (PLAVIX) tablet 75 mg, 75 mg, oral, Daily, Cinthia Stokes PA, 75 mg at 01/24/24 0851 dextrose gel in packet 15 g, 15 g, oral, Q15 Min PRN, 15 g at 01/23/24 1716 OR dextrose (D10W) 10% bolus 250 mL, 250 mL, intravenous, Q15 Min PRN, Yojana Macdonald NP docusate sodium (COLACE) capsule 100 mg, 100 mg, oral, BID, 100 mg at 01/23/242044 OR docusate(COLACE) 10 mg/mL oral liquid 100 mg, 100 mg, feeding tube, BID, Cinthia Stokes PA, 100 mg at 01/20/242020 furosemide (LASIX) tablet 20 mg, 20 mg, oral, Daily, Nii Garces NP, 20 mg at 01/24/24 0851 glucagon injection 1 mg, 1 mg, intramuscular, Q30 Min PRN, Yojana Macdonald NP guaiFENesin ER (MUCINEX) extended release tablet 600 mg, 600 mg, oral, BID, Nii Garces NP, 600 mg at 01/24/24 0852 HYDROmorphone (DILAUDID) injection 0.2 mg, 0.2 mg, intravenous, Q2H PRN, Stan Treviño MD, 0.2 mg at 01/22/24 0949 insulin glargine (LANTUS, SEMGLEE) 100 unit/mL injection 32 Units, 32 Units, subcutaneous, Nightly,Jennyfer Gaffney MD, 32 Units at 01/23/24 204 insulin lispro (HumaLOG, ADMELOG) 100 unit/mL injection 0-10 Units, 0-10 Units, subcutaneous, TID with meals, Yojana Macdonald NP, 4 Units at 01/23/24 1321 insulin lispro (HumaLOG, ADMELOG) 100 unit/mL injection 0-5 Units, 0-5 Units, subcutaneous, Nightly, Yojana Macdonald NP, 3 Units at 01/23/242043 insulin lispro (HumaLOG, ADMELOG) 100 unit/mL injection 8 Units, 8 Units, subcutaneous, TID JEFFERY, Vanita Ware NP, 8 Units at 01/24/24 123 levothyroxine (SYNTHROID) tablet 88 mcg, 88 mcg, feeding tube, Daily - 0600, Cinthia Stokes PA, 88 mcg at 01/24/24 0527 lidocaine (ASPERCREME) 4 % patch 2 patch, 2 patch, transdermal, Q24H, Aba Johnson NP metoprolol tartrate (LOPRESSOR) immediate release tablet 12.5 mg, 12.5 mg, oral, BID, Andres Garces NP ondansetron (ZOFRAN) injection 4 mg, 4 mg, intravenous, Q6H PRN, Cinthia Stokes PA, 4 mg at 01/22/24 1519 oxyCODONE (ROXICODONE) tablet 5 mg, 5 mg, oral, Q4H PRN, Stan Treviño MD, 5 mg at 01/23/24 1010 polyethylene glycol (MIRALAX) packet 17 g, 17 g, oral, Daily, Cinthia Stokes PA, 17 g at 01/23/24 1005 prochlorperazine (COMPAZINE) injection 5 mg, 5 mg, intravenous, Q6H PRN, Cinthia Stokes PA, 5 mg at 01/21/24 0825 senna (SENOKOT) tablet 1 tablet, 1 tablet, oral, BID, 1 tablet at 01/23/242044 OR [DISCONTINUED] senna 1.76 mg/mL syrup 8.8 mg, 8.8 mg, feeding tube, BID, Cinthia Stokes PA, 8.8 mg at 01/20/242020 sodium phosphate - potassium phosphate (K-PHOS NEUTRAL) tablet 250 mg, 250 mg, oral, TID with meals, Bri Lindo NP, 250 mg at 01/24/24 1232 Vitals: 24hr Min/Max: Temp Min: 36.5 ??C (97.7 ??F) Max: 37 ??C (98.6 ??F) Pulse Min: 77 Max: 96 BP Min: 103/48 Max: 132/66 Resp Min: 16 Max: 18 SpO2 Min: 95 % Max: 100 % Most Recent : Vitals: 01/24/24 1227 BP: 115/53 Pulse: 85 Resp: 18 Temp: 36.6 ??C (97.9 ??F) SpO2: 100% I/O last 2 completed shifts: In: 250 [P.O.:250] Out: 550 [Urine:550] I/O this shift: In: 500 [P.O.:500] Out: - Physical Exam: Physical Exam Vitals reviewed. HENT: Head: Normocephalic and atraumatic. Mouth/Throat: Mouth: Mucous membranes are moist. Eyes: Pupils: Pupils are equal, round, and reactive to light. Cardiovascular: Rate and Rhythm: Normal rate and regular rhythm. Comments: NSR 88 EPW to VVI 60 Pulmonary: Breath sounds: Examination of the right-lower field reveals decreased breath sounds. Examination ofthe left-lower field reveals decreased breath sounds. Decreased breath sounds, rhonchi and rales present. Abdominal: General: Abdomen is flat. Palpations: Abdomen is soft. Musculoskeletal: General: Normal range of motion. Cervical back: Normal range of motion. Skin: General: Skin is warm. Comments: Sternal incision covered with Prevena to portable suction Prior CT site incision CDI Neurological: General: No focal deficit present. Mental Status: She is alert and oriented to person, place, and time. Psychiatric: Mood and Affect: Mood normal. Behavior: Behavior normal. Lab/Radiology/Diagnostic Review: Laboratory review: Lab results in the last 24 hours: Recent Results (from the past 24 hour(s)) POCT glucose Collection Time: 01/23/24 5:09 PM Result Value Ref Range Glucose, POC 56 (L) 70 - 199 mg/dL POCT glucose Collection Time: 01/23/24 5:36 PM Result Value Ref Range Glucose, POC 97 70 - 199 mg/dL POCT glucose Collection Time: 01/23/24 5:59 PM Result Value Ref Range Glucose, POC 142 70 - 199 mg/dL POCT glucose Collection Time: 01/23/24 7:57 PM Result Value Ref Range Glucose, POC 272 (H) 70 - 199 mg/dL Type and screen Collection Time: 01/23/24 10:31 PM Result Value Ref Range ABO Rh A Positive Sergio, indirect Negative Magnesium Collection Time: 01/23/24 10:31 PM Result Value Ref Range Magnesium 2.2 1.4 - 2.5 mg/dL Phosphorus Collection Time: 01/23/24 10:31 PM Result Value Ref Range Phosphorus, pl 2.6 2.3 - 4.5 mg/dL Basic metabolic panel Collection Time: 01/23/24 10:31 PM Result Value Ref Range Sodium 139 135 - 145 mmol/L Potassium, pl 4.4 3.3 - 4.9 mmol/L Chloride 106 97 - 110 mmol/L CO2 22 22 - 32 mmol/L Anion gap 11 2 - 15 mmol/L BUN 43 (H) 6 - 25 mg/dL Creatinine 1.28 (H) 0.60 - 1.10 mg/dL Glucose 242 (H) 70 - 199 mg/dL Calcium 8.3 (L) 8.5 - 10.3 mg/dL CBC without differential Collection Time: 01/23/24 10:31 PM Result Value Ref Range WBC 7.2 3.8 - 9.9 K/cumm Hgb 8.4 (L) 11.9 - 15.5 g/dL Hct 25.8 (L) 35.6 - 45.5 % Plt 155 150 - 400 K/cumm MPV 11.5 9.1 - 12.3 fL RBC 2.84 (L) 3.90 - 5.20 M/cumm MCV 90.8 81.3 - 96.4 fL MCH 29.6 27.1 - 33.3 pg MCHC 32.6 32.3 - 35.7 g/dL RDW CV 13.9 11.1 - 14.9 % RDW SD 46.9 35.7 - 48.1 fL NRBC abs 0.00 0.00 - 0.01 K/cumm eGFR Collection Time: 01/23/24 10:31 PM Result Value Ref Range eGFR 44 (L) >=60 mL/min/1.73 m2 POCT glucose Collection Time: 01/24/24 1:43 AM Result Value Ref Range Glucose, POC 194 70 - 199 mg/dL POCT glucose Collection Time: 01/24/24 7:32 AM Result Value Ref Range Glucose, POC 143 70 - 199 mg/dL POCT glucose Collection Time: 01/24/24 12:27 PM Result Value Ref Range Glucose, POC 125 70 - 199 mg/dL ASSESSMENT/PLAN Thrombocytopenia (HCC) Assessment & Plan - low platelet level post cardiac surgery - Platelet level 134 today from 132 - no overt signs of bleeding - continue daily CBC Leucocytosis Assessment & Plan - Elevated WBC level post cardiac surgery - WBC 11.2 today from 14 - pt. remained afebrile - continue to trend. Daily CBC - discontinue bright ABLA (acute blood loss anemia) Assessment & Plan - Low hemoglobin level post cardiac surgery - Hemoglobin 7.2 today from 11.2 - no overt signs of active bleeding - daily CBC - consider blood transfusion if hgb <7 and hemodynamically unstable Obesity Assessment & Plan - BMI 40.32 on admission - provide bariatric equipment - caloric restriction DM2 (diabetes mellitus, type 2) ([facility]) Assessment & Plan - Hemoglobin A1c 5.9 % on admission - consistent carb diet - continue basal bolus SSI with post prandial coverage - One episode of hypoglycemia d/t poor intake , now resolved * Coronary artery disease Assessment & Plan - s/p CABG x3 (AGOSTO to LAD, vein to OM, mariano to PDA), TONY clip, sternal plating by Dr. Treviño. - ASA, plavix, statin, Metop - Aggressive pulmonary toilet, acapella, IS, OOBC - continue bowel regimen - EPW to VVI60 - monitor on telemetry - PT/OT - daily CBC, BMP- - titrate metoprolol as tolerated - lasix 20 daily for diuresis Nii Garces NP 01/24/2024 Cosigned by Stan Treviño MD at 02/02/2024 6:25 PM CDT * Maria T Odonnell, PT - 01/24/2024 10:01 AM CDT Physical Therapy Progress Note NOTE: This is a summary note of the anthony components of the treatment session. For full details, review chart for all flowsheets documented on by this physical therapy clinician on this date. Vital signs documented in vital signs flowsheet. Care plan progress documented in Care Plan Activity. For questions, please review the treatment team and contact the PT or HEEL SEAT TRIMMER currently assigned to this patient. If a physical therapy clinician is not assigned to this patient, please call [phone]. 01/24/24 1001 PT Last Visit Session Type Treatment PT Received On 01/24/24 Safe Environment Arm band checked;Patient found sitting in chair;Session completed bedside;Gait belt not utilized, see comment (2/2 sternal incision) Subjective Agreeable to Therapy Family/Caregiver Present Yes (daughter) Precautions Precautions Cardiac sternal;Fall risk Weight Bearing Restrictions No Precaution Handout Issued No Precaution Comments verbally reviewed precautions prior to mobility and throughout session Activity Tolerance Activity Tolerance Comments Blas: hard Pain Assessment Pain Assessment 0-10 Pain Score 3 Pain Location Rib cage Pain Interventions Repositioned Cognition Arousal/Alertness Alert Orientation Oriented X4 (person, place, time, situation) Following Commands Follows all commands and directions without difficulty Safety Judgment Good awareness of safety precautions Balance Balance Yes Static Sitting Balance Static Sitting-Balance Support No upper extremity supported Static Sitting-Sitting Surface Chair Static Sitting-Level of Assistance Distant supervision Static Sitting-Comment/# of Minutes for safety Static Standing Balance Static Standing-Balance Support Bilateral upper extremity supported Static Standing-Standing Surface Floor Static Standing-Level of Assistance Contact guard Static Standing-Comment/# of Minutes using WW, CGA for safety Bed Mobility Bed Mobility No Transfers Transfer Yes Transfer 1 Transfer From 1 Sit Transfer Type 1 To and from Transfer to 1 Stand Technique 1 Sit to stand;Stand to sit Transfer Device 1 Wheeled walker Transfer Level of Assistance 1 Minimum Assist Trials/Comments 1 2 reps, Trevon for force production, VC for maintenence of precautions Ambulation Ambulation Yes Ambulation 1 Distance (ft) 1 65' (+100') Surface 1 Level tile Device 1 Wheeled walker Other Apparatus 1 Wheelchair follow Assistance 1 Minimum Assist Gait: Requires assist with 1 Maintaining balance Gait: Requires verbal cues to 1 Use assistive device safely;Utilize appropriate gait sequencing;Improve upright posture;Pace activity;Utilize pursed lip breathing Gait Deviations 1 Base of support - decreased;Neena - decreased;Heel strike - decreased;Step length - decreased Ambulation Comments 1 seated rest break between bouts of walking Basic Mobility - 6 Click How much difficulty does the patient have: Turning over in bed 3 How much difficulty does the patient currently have: Sitting down and standing up from a chair witharms? 3 How much difficulty does the patient have: Moving from lying on back to sitting on the side of the bed? 3 How much difficulty does the patient have: Moving to and from a bed to a chair including wheelchair? 3 How much help does the patient currently need: Walk in hospital room? 3 How much help from another person does the patient currently need: Climbing 3-5 steps with a railing? 2 Total 6 Click Score (range 6-24) 17 Score Interpretation 39.67 Safe Environment End of Therapy Session Safe Environment End of Therapy Session Patient left in recliner;RN notified;Call light within reach;Overbed table within reach (RN Mega notified) Assessment Prognosis Good Problem List Gait deviations;Decreased strength;Decreased range of motion;Decreased endurance;Impaired balance;Decreased mobility;Pain;Decreased active movement Plan Plan Continue with current plan;If this is the last note, consider this the discharge summary Recommendation/Plan PT Recommendation/Plan Inpatient Rehab Facility Patient at high risk for Falls;Readmission;Injury due to decreased ability to care for self;Injury due to reduced functional status;Injury due to balance deficits;Injury at home as patient has not returned to prior level of function Recommend Inpatient Rehab/Acute Rehab due to Ability to actively participate in intensive therapy 3hours/day, 5 days/week or 900 minutes per week;Highly motivated to participate in therapy;Not at baseline due to impaired ability to complete ADLs;Impaired ability to complete functional mobility;Likely to return to the community at discharge with support system in place;Requires greater than 25% physical assistance with most mobility tasks PT Frequency during current admission 5-7x/wk Treatment/Interventions during current admission Balance Training;Bed mobility;Endurance training;Equipment eval/education;Functional activity;Functional transfer training;Gait training;Therapeutic activity PT Equipment Recommended Other (Comment) (will be assessed at next level of care) Progress during current admission Progressing toward goals PT - Next Appointment 01/27/24 Time Calculation Start Time 1001 Stop Time 1025 Time Calculation (min) 24 min Multi-Disciplinary Problems (from Physical Therapy) Active Problems Problem: Mobility Start Date: 01/22/24 Goal Start Date Expected End Date End Date STG - Patient will ambulate 01/22/24 01/29/24 -- Goal Details: 300ft LRD and supervision Goal Start Date Expected End Date End Date STG - Patient will ambulate up and down a curb/step 01/22/24 01/29/24 -- Goal Details: With supervision Problem: Transfers Start Date: 01/22/24 Goal Start Date Expected End Date End Date STG - Transfer from bed to chair 01/22/24 01/29/24 -- Goal Details: Supervision Goal Start Date Expected End Date End Date STG - Patient to transfer to and from sit to supine 01/22/24 01/29/24 -- Goal Details: Supervision Goal Start Date Expected End Date End Date STG - Patient will transfer sit to and from stand 01/22/24 01/29/24 -- Goal Details: Supervision Problem: PT Misc Start Date: 01/22/24 Goal Start Date Expected End Date End Date PT STG - Misc 1 01/22/24 01/29/24 -- Goal Details: Patient and caregivers will participate in and demonstrate understanding of therapeutic exercise and safe mobility strategies to improve independence with functional mobility. * Nii Garces, WHEELCHAIR VAN OPERATOR FIRST RESPONDER - 01/23/2024 4:46 PM CDT Cardiac Surgery Daily Progress 3 Days Post-Op SUBJECTIVE Chief complaint of doing well. Interval History: left pleural CT removed. Added lasix 20 mg for additional diuresis. Titrate metopas tolerated d/t soft BP. OBJECTIVE Current Facility-Administered Medications: acetaminophen (TYLENOL) tablet 1,000 mg, 1,000 mg, feeding tube, Q6H LAMONTE, Cinthia Stokes PA, 1,000 mg at 01/23/24 1321 aspirin enteric coated tablet 81 mg, 81 mg, oral, Daily, Cinthia Stokes PA, 81 mg at 01/23/24 1004 atorvastatin (LIPITOR) tablet 40 mg, 40 mg, feeding tube, Daily, Cinthia Stokes PA, 40 mgat 01/23/24 1005 chlorhexidine (PERIDEX) 0.12 % solution 15 mL, 15 mL, mouth/throat, TID, Cinthia Stokes PA, 15 mL at 01/23/24 1003 clopidogreL (PLAVIX) tablet 75 mg, 75 mg, oral, Daily, Cinthia Stokes PA, 75 mg at 01/23/24 1005 dextrose gel in packet 15 g, 15 g, oral, Q15 Min PRN OR dextrose (D10W) 10% bolus 250 mL, 250 mL, intravenous, Q15 Min PRN, Yojana Macdonald NP docusate sodium (COLACE) capsule 100 mg, 100 mg, oral, BID, 100 mg at 01/23/24 1005 OR docusate(COLACE) 10 mg/mL oral liquid 100 mg, 100 mg, feeding tube, BID, Cinthia Stokes PA, 100 mg at 01/20/242020 furosemide (LASIX) tablet 20 mg, 20 mg, oral, Daily, Nii Garces NP, 20 mg at 01/23/24 1004 glucagon injection 1 mg, 1 mg, intramuscular, Q30 Min PRN, Yojana Macdonald NP guaiFENesin ER (MUCINEX) extended release tablet 600 mg, 600 mg, oral, BID, Nii Garces NP, 600 mg at 01/23/24 1005 HYDROmorphone (DILAUDID) injection 0.2 mg, 0.2 mg, intravenous, Q2H PRN, Stan Treviño MD, 0.2 mg at 01/22/24948 insulin glargine (LANTUS, SEMGLEE) 100 unit/mL injection 32 Units, 32 Units, subcutaneous, Nightly,Jennyfer Gaffney MD, 32 Units at 01/22/242111 insulin lispro (HumaLOG, ADMELOG) 100 unit/mL injection 0-10 Units, 0-10 Units, subcutaneous, TID with meals, Yojana Macdonald NP, 4 Units at 01/23/241320 insulin lispro (HumaLOG, ADMELOG) 100 unit/mL injection 0-5 Units, 0-5 Units, subcutaneous, Nightly, Yojana Macdonald NP, 1 Units at 01/22/242111 insulin lispro (HumaLOG, ADMELOG) 100 unit/mL injection 10 Units, 10 Units, subcutaneous, TID PC, Nii Garces NP, 10 Units at 01/23/24 1321 levothyroxine (SYNTHROID) tablet 88 mcg, 88 mcg, feeding tube, Daily - 0600, Cinthia Stokes PA, 88 mcg at 01/23/24 0619 lidocaine (ASPERCREME) 4 % patch 2 patch, 2 patch, transdermal, Q24H, Stan Treviño MD, 2 patchat 01/23/24 1005 metoprolol tartrate immediate release capsule 6.25 mg, 6.25 mg, oral, BID, Nii Garces NP, 6.25 mg at 01/23/24 1004 ondansetron (ZOFRAN) injection 4 mg, 4 mg, intravenous, Q6H PRN, Cinthia Stokes PA, 4 mg at 01/22/24 1519 oxyCODONE (ROXICODONE) tablet 5 mg, 5 mg, oral, Q4H PRN, Stan Treviño MD, 5 mg at 01/23/24 1010 polyethylene glycol (MIRALAX) packet 17 g, 17 g, oral, Daily, Cinthia Stokes PA, 17 g at 01/23/24 1005 prochlorperazine (COMPAZINE) injection 5 mg, 5 mg, intravenous, Q6H PRN, Cinthia Stokes PA, 5 mg at 01/21/24 0825 senna (SENOKOT) tablet 1 tablet, 1 tablet, oral, BID, 1 tablet at 01/23/24 1005 OR [DISCONTINUED] senna 1.76 mg/mL syrup 8.8 mg, 8.8 mg, feeding tube, BID, Cinthia Stokes PA, 8.8 mg at 01/20/242020 sodium phosphate - potassium phosphate (K-PHOS NEUTRAL) tablet 250 mg, 250 mg, oral, TID with meals, Bri Lindo NP, 250 mg at 01/23/24 1321 Vitals: 24hr Min/Max: Temp Min: 36 ??C (96.8 ??F) Max: 36.8 ??C (98.2 ??F) Pulse Min: 84 Max: 93 BP Min: 97/62 Max: 119/61 Resp Min: 18 Max: 18 SpO2 Min: 94 % Max: 96 % Most Recent : Vitals: 01/23/24 1131 BP: 112/60 Pulse: 84 Resp: 18 Temp: 36 ??C (96.8 ??F) SpO2: 95% I/O last 2 completed shifts: In: - Out: 1090 [Urine:900; Chest Tube:190] I/O this shift: In: - Out: 150 [Urine:150] Physical Exam: Physical Exam Vitals reviewed. HENT: Head: Normocephalic and atraumatic. Mouth/Throat: Mouth: Mucous membranes are moist. Eyes: Pupils: Pupils are equal, round, and reactive to light. Cardiovascular: Rate and Rhythm: Normal rate and regular rhythm. Comments: NSR 88 EPW to VVI 60 Pulmonary: Breath sounds: Examination of the right-lower field reveals decreased breath sounds. Examination ofthe left-lower field reveals decreased breath sounds. Decreased breath sounds, rhonchi and rales present. Abdominal: General: Abdomen is flat. Palpations: Abdomen is soft. Musculoskeletal: General: Normal range of motion. Cervical back: Normal range of motion. Skin: General: Skin is warm. Comments: Sternal incision covered with Prevena to portable suction Prior CT site incision CDI Neurological: General: No focal deficit present. Mental Status: She is alert and oriented to person, place, and time. Psychiatric: Mood and Affect: Mood normal. Behavior: Behavior normal. Lab/Radiology/Diagnostic Review: Laboratory review: Lab results in the last 24 hours: Recent Results (from the past 24 hour(s)) POCT glucose Collection Time: 01/22/24 8:38 PM Result Value Ref Range Glucose, POC 188 70 - 199 mg/dL Magnesium Collection Time: 01/22/24 10:21 PM Result Value Ref Range Magnesium 2.4 1.4 - 2.5 mg/dL Phosphorus Collection Time: 01/22/24 10:21 PM Result Value Ref Range Phosphorus, pl 2.2 (L) 2.3 - 4.5 mg/dL Basic metabolic panel Collection Time: 01/22/24 10:21 PM Result Value Ref Range Sodium 139 135 - 145 mmol/L Potassium, pl 4.4 3.3 - 4.9 mmol/L Chloride 106 97 - 110 mmol/L CO2 23 22 - 32 mmol/L Anion gap 10 2 - 15 mmol/L BUN 43 (H) 6 - 25 mg/dL Creatinine 1.41 (H) 0.60 - 1.10 mg/dL Glucose 195 70 - 199 mg/dL Calcium 8.6 8.5 - 10.3 mg/dL CBC without differential Collection Time: 01/22/24 10:21 PM Result Value Ref Range WBC 11.2 (H) 3.8 - 9.9 K/cumm Hgb 8.7 (L) 11.9 - 15.5 g/dL Hct 26.9 (L) 35.6 - 45.5 % Plt 136 (L) 150 - 400 K/cumm MPV 11.6 9.1 - 12.3 fL RBC 2.96 (L) 3.90 - 5.20 M/cumm MCV 90.9 81.3 - 96.4 fL MCH 29.4 27.1 - 33.3 pg MCHC 32.3 32.3 - 35.7 g/dL RDW CV 14.3 11.1 - 14.9 % RDW SD 47.3 35.7 - 48.1 fL NRBC abs 0.00 0.00 - 0.01 K/cumm eGFR Collection Time: 01/22/24 10:21 PM Result Value Ref Range eGFR 39 (L) >=60 mL/min/1.73 m2 POCT glucose Collection Time: 01/22/24 11:19 PM Result Value Ref Range Glucose, POC 183 70 - 199 mg/dL POCT glucose Collection Time: 01/23/24 2:16 AM Result Value Ref Range Glucose, POC 141 70 - 199 mg/dL POCT glucose Collection Time: 01/23/24 7:39 AM Result Value Ref Range Glucose, POC 152 70 - 199 mg/dL POCT glucose Collection Time: 01/23/24 11:34 AM Result Value Ref Range Glucose, POC 217 (H) 70 - 199 mg/dL ASSESSMENT/PLAN Thrombocytopenia (HCC) Assessment & Plan - low platelet level post cardiac surgery - Platelet level 134 today from 132 - no overt signs of bleeding - continue daily CBC Leucocytosis Assessment & Plan - Elevated WBC level post cardiac surgery - WBC 11.2 today from 14 - pt. remained afebrile - continue to trend. Daily CBC - discontinue bright ABLA (acute blood loss anemia) Assessment & Plan - Low hemoglobin level post cardiac surgery - Hemoglobin 8.7 today from 8.6 - no overt signs of active bleeding - daily CBC - consider blood transfusion if hgb <7 and hemodynamically unstable Obesity Assessment & Plan - BMI 40.32 on admission - provide bariatric equipment - caloric restriction * Coronary artery disease Assessment & Plan - s/p CABG x3 (AGOSOT to LAD, vein to OM, mariano to PDA), TONY clip, sternal plating by Dr. Treviño. - ASA, plavix, statin, Metop - Aggressive pulmonary toilet, acapella, IS, OOBC - continue bowel regimen - CT to wall suction, EPW to VVI60 - monitor on telemetry - PT/OT - daily CBC, BMP- - titrate metoprolol as tolerated - lasix 20 daily for diuresis Nii Garces NP 01/23/2024 Cosigned by Stan Treviño MD at 02/02/2024 6:25 PM CDT * Doris Dean, PT - 01/23/2024 3:21 PM CDT Physical Therapy 01/23/24 1521 PT Last Visit PT Missed Visit Reason Patient declined (Pt declined, asked PT to return tomorrow due to fatigue) * Carol Acosta, OT - 01/23/2024 9:10 AM CDT Occupational Therapy Occupational Therapy Progress Note NOTE: This is a summary note of the anthony components of the treatment session. For full details, review chart for all flowsheets documented on by this occupational therapy clinician on this date. Vitalsigns documented in vital signs flowsheet. Care plan progress documented in Care Plan Activity. For questions, please review the treatment team and contact the occupational therapist currently assigned to this patient. If an occupational therapist is not assigned to this patient, please call [phone]. 01/23/24 0910 General Session Type Treatment OT Received On 01/23/24 Safe Environment Arm band checked;Gait belt not utilized, see comment (pt found on commode) Subjective Agreeable to Therapy Family/Caregiver Present No Precautions Precautions Cardiac sternal;Fall risk Pain Assessment Pain Assessment 0-10 Pain Score 0 - No pain Balance Balance Yes Static Sitting Balance Static Sitting-Balance Support No upper extremity supported;Feet supported Static Sitting-Sitting Surface Chair Static Sitting-Level of Assistance Distant supervision Static Sitting-Comment/# of Minutes safety Dynamic Sitting Balance Dynamic Sitting-Balance Support No upper extremity supported;Feet supported Dynamic Sitting-Balance Lateral lean;Forward lean;Reaching for objects Dynamic Sitting-Sitting Surface Chair Dynamic Sitting-Level of Assistance Close supervision Dynamic Sitting-Comments safeety Static Standing Balance Static Standing-Balance Support Bilateral upper extremity supported Static Standing-Standing Surface Floor Static Standing-Level of Assistance Contact guard Static Standing-Comment/# of Minutes safety Dynamic Standing Balance Dynamic Standing-Balance Support Bilateral upper extremity supported Dynamic Standing-Balance Lateral lean;Forward lean;Reaching for objects Dynamic Standing-Standing Surface Floor Dynamic Standing-Level of Assistance Minimum assistance Dynamic Standing-Comments balance/safety ADL ADLS (WDL) X Grooming Grooming: Where assessed Chair Grooming: Level of assistance Moderate Assist (set up task; total balance) Grooming: Assistance with Balance;Safety Toileting Toileting: Where assessed Toilet Toileting: Level of assistance Moderate Assist (mod task; min balance) Toileting: Assistance with Clothing management up;Clothing management down;Posterior;Balance Bed Mobility Bed Mobility No Transfers Transfer Yes Transfer 1 Transfer From 1 Sit Transfer Type 1 To and from Transfer to 1 Stand Technique 1 Sit to stand;Stand to sit Transfer Device 1 Hand held assist;Wheeled walker Transfer Level of Assistance 1 Minimum Assist Trials/Comments 1 balance/safety Transfers 2 Trials/Comments 2 functional mobility: MIN A WW Toilet Transfers Toilet Transfer From Chair with arms Toilet Transfer Type To and from Toilet Transfer to Standard toilet Toilet Transfer Technique Ambulating Toilet Transfer: Equipment Wheeled walker Toilet Transfers Minimal assistance Toilet Transfers Comments force production Cognition Arousal/Alertness Alert Attention Span Appears intact Memory Appears intact Current communication Appears Intact Orientation Oriented X4 (person, place, time, situation) Following Commands Follows all commands and directions without difficulty Safety Judgment Good awareness of safety precautions Awareness of Errors Good awareness of errors made Insight Fully aware of deficits Problem Solving Able to problem solve independently Compliance/Behavior Easy to engage Perseveration Not present Daily Activity - 6 Clicks Putting on and taking off regular lower body clothing 2 Bathing 2 Toileting 2 Putting on and taking off upper body clothing 3 Personal Grooming 2 Eating Meals 3 Total Score (range 6-24) 14 Score Interpretation 33.39 Safe Environment End of Therapy Session Safe Environment End of Therapy Session Patient left in recliner;Call light within reach;Overbed table within reach Assessment Problem List Decreased safe judgment during ADL;Decreased endurance;Decreased balance;Decreased functional mobility;Decreased ADL independence;Decreased IADL independence Barriers to Discharge Current Mobility Status Barrier Comments fall risk Plan Plan Continue with current plan;If this is the last note, consider this the discharge summary Recommendation/Plan OT Recommendation Inpatient Rehab Facility Patient at high risk for Falls;Readmission;Injury due to decreased ability to care for self;Injury due to reduced functional status;Injury due to impaired cognition;Injury due to balance deficits;Injury at home as patient has not returned to prior level of function Recommend Inpatient Rehab/Acute Rehab due to Ability to actively participate in intensive therapy 3hours/day, 5 days/week or 900 minutes per week;Not at baseline due to impaired ability to complete ADLs;Highly motivated to participate in therapy;Impaired ability to complete functional mobility;Likely to return to the community at discharge with support system in place OT Frequency during current admission 3-5x/wk Treatment/Interventions during current admission ADL/IADL retraining;Balance Training;Bed mobility;Endurance training;Functional transfer training;Functional mobility training;Functional activity;Range of motion;Strengthening;Therapeutic activity;Therapeutic exercise;Transfer training Progress during current admission Progressing toward goals OT - Next Appointment 01/24/24 Time Calculation Start Time 909 Stop Time 933 Time Calculation (min) 24 min Multi-Disciplinary Problems (from Occupational Therapy) Active Problems Problem: Dressings Lower Extremities Start Date: 01/21/24 Goal Start Date Expected End Date End Date STG - Patient to complete lower body dressing 01/21/24 01/28/24 -- Goal Details: With supervision Problem: Grooming Start Date: 01/21/24 Goal Start Date Expected End Date End Date STG - Patient will complete grooming 01/21/24 01/28/24 -- Goal Details: Standing at sink with supervision Problem: Toileting Start Date: 01/21/24 Goal Start Date Expected End Date End Date STG - Patient will complete toileting tasks with 01/21/24 01/28/24 -- Goal Details: Supervision at toilet in bathroom Problem: Transfers Start Date: 01/21/24 Goal Start Date Expected End Date End Date STG - Patient will perform toilet transfer 01/21/24 01/28/24 -- Goal Details: To toilet in bathroom with supervision Problem: OT Misc Start Date: 01/21/24 Goal Start Date Expected End Date End Date OT LTG - Misc 1 01/21/24 02/04/24 -- Goal Details: Patient will perform ADL tasks with modified independence * Nii Garces NP - 01/22/2024 3:24 PM CDT Cardiac Surgery Daily Progress 2 Days Post-Op CABG X3 SUBJECTIVE Chief complaint of doing well. Interval History: Mediastinal tubes X2 removed. Metop low dose initiated. Added lidocaine patches for back pain. Bright discontinued. WBC elevated but remained afebrile. Continue daily CBC. OBJECTIVE Current Facility-Administered Medications: acetaminophen (TYLENOL) tablet 1,000 mg, 1,000 mg, feeding tube, Q6H LAMONTE, Cinthia Stokes PA, 1,000 mg at 01/22/24 1230 aspirin enteric coated tablet 81 mg, 81 mg, oral, Daily, Cinthia Stokes PA, 81 mg at 01/22/24 0940 atorvastatin (LIPITOR) tablet 40 mg, 40 mg, feeding tube, Daily, Cinthia Stokes PA, 40 mgat 01/22/24 0940 chlorhexidine (PERIDEX) 0.12 % solution 15 mL, 15 mL, mouth/throat, TID, Cinthia Stokes PA, 15 mL at 01/22/24 0940 clopidogreL (PLAVIX) tablet 75 mg, 75 mg, oral, Daily, Cinthia Stokes PA, 75 mg at 01/22/24 0940 dextrose gel in packet 15 g, 15 g, oral, Q15 Min PRN OR dextrose (D10W) 10% bolus 250 mL, 250 mL, intravenous, Q15 Min PRN, Yojana Macdonald NP docusate sodium (COLACE) capsule 100 mg, 100 mg, oral, BID, 100 mg at 01/22/24 0940 OR docusate(COLACE) 10 mg/mL oral liquid 100 mg, 100 mg, feeding tube, BID, Cinthia Stokes PA, 100 mg at 01/20/242020 glucagon injection 1 mg, 1 mg, intramuscular, Q30 Min PRN, Yojana Macdonald NP guaiFENesin ER (MUCINEX) extended release tablet 600 mg, 600 mg, oral, BID, Nii Garces NP HYDROmorphone (DILAUDID) injection 0.2 mg, 0.2 mg, intravenous, Q2H PRN, Stan Treviño MD, 0.2 mg at 01/22/24 0949 insulin glargine (LANTUS, SEMGLEE) 100 unit/mL injection 32 Units, 32 Units, subcutaneous, Nightly,Jennyefr Gaffney MD, 32 Units at 01/21/242045 insulin lispro (HumaLOG, ADMELOG) 100 unit/mL injection 0-10 Units, 0-10 Units, subcutaneous, TID with meals, Yojana Macdonald NP, 2 Units at 01/22/24 123 insulin lispro (HumaLOG, ADMELOG) 100 unit/mL injection 0-5 Units, 0-5 Units, subcutaneous, Nightly, Yojana Macdonald NP, 2 Units at 01/21/242045 insulin lispro (HumaLOG, ADMELOG) 100 unit/mL injection 10 Units, 10 Units, subcutaneous, TID with meals, Jennyfer Gaffney MD, 10 Units at 01/22/24 123 levothyroxine (SYNTHROID) tablet 88 mcg, 88 mcg, feeding tube, Daily - 0600, Cinthia Stokes PA, 88 mcg at 01/22/24 0606 lidocaine (ASPERCREME) 4 % patch 2 patch, 2 patch, transdermal, Q24H, Stan Treviño MD, 2 patchat 01/22/24 0948 metoprolol tartrate immediate release capsule 6.25 mg, 6.25 mg, oral, BID, Nii Garces NP, 6.25 mg at 01/22/24 1042 ondansetron (ZOFRAN) injection 4 mg, 4 mg, intravenous, Q6H PRN, Cinthia Stokes PA, 4 mg at 01/22/24 1519 oxyCODONE (ROXICODONE) tablet 5 mg, 5 mg, oral, Q4H PRN, Stan Trevñio MD, 5 mg at 01/22/24 1519 polyethylene glycol (MIRALAX) packet 17 g, 17 g, oral, Daily, Cinthia Stokes PA, 17 g at 01/22/24 0940 prochlorperazine (COMPAZINE) injection 5 mg, 5 mg, intravenous, Q6H PRN, Cinthia Stokes PA, 5 mg at 01/21/24 0825 senna (SENOKOT) tablet 1 tablet, 1 tablet, oral, BID, 1 tablet at 01/22/24 0940 OR senna 1.76 mg/mL syrup 8.8 mg, 8.8 mg, feeding tube, BID, Cinthia Stokes PA, 8.8 mg at 01/20/242020 Vitals: 24hr Min/Max: Temp Min: 36.3 ??C (97.4 ??F) Max: 36.8 ??C (98.2 ??F) Pulse Min: 83 Max: 111 BP Min: 103/60 Max: 132/55 Resp Min: 18 Max: 20 SpO2 Min: 90 % Max: 97 % Most Recent : Vitals: 01/22/24 1200 BP: 122/57 Pulse: 89 Resp: 18 Temp: 36.3 ??C (97.4 ??F) SpO2: 93% I/O last 2 completed shifts: In: 1336.5 [P.O.:1170; I.V.:146.5; IV Piggyback:20] Out: 1190 [Urine:685; Drains:25; Chest Tube:480] I/O this shift: In: - Out: 230 [Urine:150; Chest Tube:80] Physical Exam: Physical Exam Vitals reviewed. HENT: Head: Normocephalic and atraumatic. Mouth/Throat: Mouth: Mucous membranes are moist. Eyes: Pupils: Pupils are equal, round, and reactive to light. Cardiovascular: Rate and Rhythm: Normal rate and regular rhythm. Comments: NSR 88 EPW to VVI 60 Pulmonary: Breath sounds: Examination of the right-lower field reveals decreased breath sounds. Examination ofthe left-lower field reveals decreased breath sounds. Decreased breath sounds, rhonchi and rales present. Abdominal: General: Abdomen is flat. Palpations: Abdomen is soft. Musculoskeletal: General: Normal range of motion. Cervical back: Normal range of motion. Skin: General: Skin is warm. Comments: Sternal incision covered with Prevena to portable suction Prior CT site incision CDI Neurological: General: No focal deficit present. Mental Status: She is alert and oriented to person, place, and time. Psychiatric: Mood and Affect: Mood normal. Behavior: Behavior normal. Lab/Radiology/Diagnostic Review: Laboratory review: Lab results in the last 24 hours: Recent Results (from the past 24 hour(s)) POCT glucose Collection Time: 01/21/24 5:08 PM Result Value Ref Range Glucose, POC 259 (H) 70 - 199 mg/dL POCT glucose Collection Time: 01/21/24 8:36 PM Result Value Ref Range Glucose, POC 232 (H) 70 - 199 mg/dL POCT glucose Collection Time: 01/22/24 12:53 AM Result Value Ref Range Glucose, POC 167 70 - 199 mg/dL POCT glucose Collection Time: 01/22/24 2:42 AM Result Value Ref Range Glucose, POC 165 70 - 199 mg/dL Infection Prevention Ema auris PCR, surveillance Axilla/Groin Collection Time: 01/22/24 5:55 AM Specimen: Axilla/Groin Result Value Ref Range Ema auris DNA Not Detected Not Detected CBC without differential Collection Time: 01/22/24 5:58 AM Result Value Ref Range WBC 14.0 (H) 3.8 - 9.9 K/cumm Hgb 8.7 (L) 11.9 - 15.5 g/dL Hct 26.9 (L) 35.6 - 45.5 % Plt 134 (L) 150 - 400 K/cumm MPV 11.9 9.1 - 12.3 fL RBC 2.88 (L) 3.90 - 5.20 M/cumm MCV 93.4 81.3 - 96.4 fL MCH 30.2 27.1 - 33.3 pg MCHC 32.3 32.3 - 35.7 g/dL RDW CV 14.1 11.1 - 14.9 % RDW SD 48.2 (H) 35.7 - 48.1 fL NRBC abs 0.00 0.00 - 0.01 K/cumm Basic metabolic panel Collection Time: 01/22/24 5:58 AM Result Value Ref Range Sodium 139 135 - 145 mmol/L Potassium, pl 4.5 3.3 - 4.9 mmol/L Chloride 106 97 - 110 mmol/L CO2 25 22 - 32 mmol/L Anion gap 8 2 - 15 mmol/L BUN 40 (H) 6 - 25 mg/dL Creatinine 1.53 (H) 0.60 - 1.10 mg/dL Glucose 162 70 - 199 mg/dL Calcium 8.9 8.5 - 10.3 mg/dL Magnesium Collection Time: 01/22/24 5:58 AM Result Value Ref Range Magnesium 2.3 1.4 - 2.5 mg/dL Phosphorus Collection Time: 01/22/24 5:58 AM Result Value Ref Range Phosphorus, pl 2.8 2.3 - 4.5 mg/dL eGFR Collection Time: 01/22/24 5:58 AM Result Value Ref Range eGFR 35 (L) >=60 mL/min/1.73 m2 POCT glucose Collection Time: 01/22/24 7:29 AM Result Value Ref Range Glucose, POC 161 70 - 199 mg/dL POCT glucose Collection Time: 01/22/24 12:03 PM Result Value Ref Range Glucose, POC 196 70 - 199 mg/dL ASSESSMENT/PLAN Thrombocytopenia (HCC) Assessment & Plan - low platelet level post cardiac surgery - Platelet level 134 today from 132 - no overt signs of bleeding - continue daily CBC Leucocytosis Assessment & Plan - Elevated WBC level post cardiac surgery - WBC 14 today from 8.9 - pt. remained afebrile - continue to trend. Daily CBC - discontinue bright ABLA (acute blood loss anemia) Assessment & Plan - Low hemoglobin level post cardiac surgery - Hemoglobin 8.7 today from 8.6 - no overt signs of active bleeding - daily CBC - consider blood transfusion if hgb <7 and hemodynamically unstable Obesity Assessment & Plan - BMI 40.32 on admission - provide bariatric equipment - caloric restriction * Coronary artery disease Assessment & Plan - s/p CABG x3 (AGOSTO to LAD, vein to OM, mariano to PDA), TONY clip, sternal plating by Dr. Treviño. - ASA, plavix, statin, Metop - Aggressive pulmonary toilet, acapella, IS, OOBC - continue bowel regimen - CT to wall suction, EPW to VVI60 - monitor on telemetry - PT/OT - daily CBC, BMP Nii Garces NP 01/22/2024 Cosigned by Stan Trevioñ MD at 02/02/2024 6:24 PM CDT * Hazel Burroughs, PT - 01/22/2024 1:44 PM CDT Physical Therapy Physical Therapy Evaluation Note NOTE: This is a summary note of the anthony components of the evaluation session. For full details, review chart for all flowsheets documented on by this physical therapy clinician on this date. Vital signs are documented in the vital signs flowsheet. For questions, please review the treatment team and contact the PT or HEEL SEAT TRIMMER currently assigned to this patient. If a physical therapy clinician is not assigned to this patient, please call [phone]. Multi-Disciplinary Problems (from Physical Therapy) Active Problems Problem: Mobility Start Date: 01/22/24 Goal Start Date Expected End Date End Date STG - Patient will ambulate 01/22/24 01/29/24 -- Goal Details: 300ft LRD and supervision Goal Start Date Expected End Date End Date STG - Patient will ambulate up and down a curb/step 01/22/24 01/29/24 -- Goal Details: With supervision Problem: Transfers Start Date: 01/22/24 Goal Start Date Expected End Date End Date STG - Transfer from bed to chair 01/22/24 01/29/24 -- Goal Details: Supervision Goal Start Date Expected End Date End Date STG - Patient to transfer to and from sit to supine 01/22/24 01/29/24 -- Goal Details: Supervision Goal Start Date Expected End Date End Date STG - Patient will transfer sit to and from stand 01/22/24 01/29/24 -- Goal Details: Supervision Problem: PT Misc Start Date: 01/22/24 Goal Start Date Expected End Date End Date PT STG - Misc 1 01/22/24 01/29/24 -- Goal Details: Patient and caregivers will participate in and demonstrate understanding of therapeutic exercise and safe mobility strategies to improve independence with functional mobility. Physical Therapy Initial Assessment NOTE: This is a summary note for the anthony assessments completed during the evaluation session. For full details, review chart review for all flowsheets documented on by this physical therapist on thisdate. Vital signs documented in vital signs flowsheet. Assessment Assessment Prognosis: Good Problem List: Gait deviations, Decreased strength, Decreased range of motion, Decreased endurance, Impaired balance, Decreased mobility, Pain, Decreased active movement Problem List Comments: s/p CABG x3 results in above listed activity deficits and impairments which prevent full participation in home and community mobility. Plan Plan Plan : Plan of care initiated, If this is the last note, consider this the discharge summary PT Recommendation and Plan Recommendation/Plan PT Recommendation/Plan: Inpatient Rehab Facility Patient at high risk for: Falls, Readmission, Injury due to decreased ability to care for self, Injury due to reduced functional status, Injury due to balance deficits, Injury at home as patient has not returned to prior level of function Recommend Inpatient Rehab/Acute Rehab due to: Ability to actively participate in intensive therapy 3 hours/day, 5 days/week or 900 minutes per week, Highly motivated to participate in therapy, Not atbaseline due to impaired ability to complete ADLs, Impaired ability to complete functional mobility, Likely to return to the community at discharge with support system in place, Requires greater than25% physical assistance with most mobility tasks PT Frequency during current admission: 5-7x/wk Treatment/Interventions during current admission: Balance Training, Bed mobility, Endurance training, Equipment eval/education, Functional activity, Functional transfer training, Gait training, Therapeutic activity PT - Next Appointment: 01/23/24 PT - OK to Discharge: No PT Evaluation Complete: Yes General Information General Chart Reviewed: Yes Session Type: Evaluation PT Received On: 01/22/24 Safe Environment: Arm band checked, Patient found in supine, Gait belt not utilized, see comment (location of incision) Subjective: Agreeable to Therapy Family/Caregiver Present: No Physical Therapy-Patient Goal: get better Prior Function Prior Function Level of [place]: Independent with ADLs, Independent functional transfers, Independent with ambulation Lives With: Son Receives Help From: Family (son can be present but unable to help physically as he just had a back surgery) Fall within the last 6 months: Yes Fall within the last 6 months comment: a couple Prior Function Comments: I have a dog and sometimes I fall over him) Home Living Home Living Type of Home: House Home Layout: One level, Laundry in basement Home Access: Stairs to enter without rails Entrance Stairs-Number of Steps: 1 Home Mobility Equipment-Available: Single point cane Home Mobility Equipment-Currently Using: Single point cane Precautions Precautions Precautions: Cardiac sternal, Fall risk Precaution Comments: verbally reviewed precautions Pain Pain Assessment Pain Score: 5 - Moderate pain Pain Location: Back (Lumbar) Pain Interventions: (Rn aware) Cognition Cognition Orientation : Oriented X4 (person, place, time, situation) 6 Clicks Basic Mobility - 6 Click How much difficulty does the patient have: Turning over in bed: A lot How much difficulty does the patient currently have: Sitting down and standing up from a chair witharms?: A lot How much difficulty does the patient have: Moving from lying on back to sitting on the side of the bed?: A lot How much difficulty does the patient have: Moving to and from a bed to a chair including wheelchair?: A lot How much help does the patient currently need: Walk in hospital room?: A lot How much help from another person does the patient currently need: Climbing 3-5 steps with a railing?: Total Total 6 Click Score (range 6-24): 11 Score Interpretation: 11 Bed Mobility Bed Mobility 1 Bed Mobility From 1: Supine Bed Mobility Type 1: To Bed Mobility to 1: Edge of bed Level of Assistance 1: Moderate Assist Bed Mobility Comments 1: trunk elevation, safety Transfers Transfer 1 Transfer From 1: Sit Transfer Type 1: To and from Transfer to 1: Stand Transfer Device 1: Hand held assist Transfer Level of Assistance 1: Moderate Assist Trials/Comments 1: force production, safety Balance Ambulation Ambulation 1 Distance (ft) 1: 10+15 (25 ft total; 1 standing break) Surface 1: Level tile Device 1: Hand held assist, Wheeled walker Other Apparatus 1: Wheelchair follow Assistance 1: Moderate Assist Gait: Requires assist with 1: Maintaining balance, Weight shifting Gait: Requires verbal cues to 1: Use assistive device safely, Follow precautions/weight bearing status, Increase base of support, Pace activity, Utilize pursed lip breathing Gait Deviations 1: Base of support - decreased, Neena - decreased, Heel strike - decreased, Step length - decreased Ambulation Comments 1: limited by pain this visit Stairs Curbs RLE Assessment RLE Assessment RLE Assessment: Within Functional Limits LLE Assessment LLE Assessment LLE Assessment: Within Functional Limits Equipment Used Safe Environment End of Session Safe Environment End of Therapy Session: Patient left in recliner, RN notified, Call light within reach, Overbed table within reach Other Comments PT Goals Multi-Disciplinary Problems (from Physical Therapy) Active Problems Problem: Mobility Start Date: 01/22/24 Goal Start Date Expected End Date End Date STG - Patient will ambulate 01/22/24 01/29/24 -- Goal Details: 300ft LRD and supervision Goal Start Date Expected End Date End Date STG - Patient will ambulate up and down a curb/step 01/22/24 01/29/24 -- Goal Details: With supervision Problem: Transfers Start Date: 01/22/24 Goal Start Date Expected End Date End Date STG - Transfer from bed to chair 01/22/24 01/29/24 -- Goal Details: Supervision Goal Start Date Expected End Date End Date STG - Patient to transfer to and from sit to supine 01/22/24 01/29/24 -- Goal Details: Supervision Goal Start Date Expected End Date End Date STG - Patient will transfer sit to and from stand 01/22/24 01/29/24 -- Goal Details: Supervision Problem: PT Misc Start Date: 01/22/24 Goal Start Date Expected End Date End Date PT STG - Misc 1 01/22/24 01/29/24 -- Goal Details: Patient and caregivers will participate in and demonstrate understanding of therapeutic exercise and safe mobility strategies to improve independence with functional mobility. * Jose Antonio Aguilera OT - 01/21/2024 8:00 AM CDT Occupational Therapy Evaluation Note NOTE: This is a summary note of the anthony components of the evaluation session. For full details, review chart for all flowsheets documented on by this occupational therapy clinician on this date. Vital signs are documented in vital signs flowsheet. For questions, please review the treatment team and contact the occupational therapist currently assigned to this patient. If an occupational therapist is not assigned to this patient, please call [phone]. 01/21/24 0800 General Chart Reviewed Yes Session Type Evaluation OT Received On 01/21/24 Safe Environment Arm band checked;Patient found in supine;Gait belt not utilized, see comment (lines and tubes) Subjective Agreeable to Therapy Family/Caregiver Present No Occupational Therapy-Patient Goal Go home Current Functional Status OT Functional Mobility Functional mobility NT 2/2 safety precautions Precautions Precautions Fall risk;Cardiac sternal Weight Bearing Restrictions No Precaution Handout Issued No Precaution Comments Verbally reviewed precautions with patient prior to mobility Home Living Type of Home House Home Layout One level;Basement;Laundry in basement Home Access Stairs to enter without rails Entrance Stairs-Rails None Entrance Stairs-Number of Steps 1 Bathroom Shower/Tub Walk-in shower with threshold Bathroom Equipment Built-in shower seat;Grab bars in shower/tub Home Mobility Equipment-Available Single point cane Home Mobility Equipment-Currently Using Single point cane Additional Comments Patient reports using SPC intermittently Prior Function Level of [place] Independent with ADLs;Independent functional transfers;Independent with ambulation;Independent with homemaking with ambulation Lives With Son Receives Help From Family (Son full decator operator but is limited on how much physical assistance he can provide as he just had back surgery) Driving Yes Mode of Transportation Car 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 Leisure Hobbies-yes (Comment) (Read) Fall within the last 6 months Yes Fall within the last 6 months comment 1 or 2 ADL ADLS (WDL) X Grooming Grooming: Where assessed Chair Grooming: Level of assistance Moderate Assist Grooming: Assistance with Balance;Safety LE Dressing LE Dressing: Where assessed Sitting;Chair LE Dressing: Level of assistance Maximum Assist LE Dressing: Assistance with Don/doff R sock;Don/doff L sock;Thread RLE into pants;Thread LLE into pants;Pull up over hips;Balance;Safety Toilet Transfers Toilet Transfer From Bed Toilet Transfer Type To Toilet Transfer to (Chair Sim) Toilet Transfer Technique Stand and Step Toilet Transfer: Equipment Hand hold Toilet Transfers Minimal assistance Toilet Transfers Comments Force production and balance Pain Assessment Pain Assessment No/denies pain Pain Score 0 - No pain Activity Tolerance Activity Tolerance Comments blas: easy, grooming Cognition Arousal/Alertness Alert Attention Span Appears intact Memory Unable to assess (Got half way through [facility] and patient declined to complete assessment) Current communication Appears Intact Orientation Oriented X4 (person, place, time, situation) Following Commands Follows all commands and directions without difficulty Safety Judgment Decreased awareness of need for assistance Awareness of Errors Assistance required to identify errors made Insight Decreased awareness of deficits Problem Solving Assistance required to identify errors made Compliance/Behavior Easy to engage Perseveration Not present Cognitive Tests Cognitive Tests No (Got correction through the [facility] and patient declined completing assessment) Coordination Fine Motor WFL Balance Tests Balance Tests Yes Tinetti Sitting Balance 1 Arises 0 Attempts to Arise 0 Immediate Standing Balance (First 5 Seconds) 1 Standing Balance 1 Nudged 1 Eyes Closed 0 Turned 360 Degrees: Steadiness 0 Turned 360 Degrees: Continuity of Steps 0 Sitting Down 1 Balance Score 5 Balance Balance Yes Static Sitting Balance Static Sitting-Balance Support Unilateral upper extremity supported;Feet supported (unilateral UE supported on bed) Static Sitting-Sitting Surface Bed Static Sitting-Level of Assistance Close supervision Static Sitting-Comment/# of Minutes Ensure safety and balance Dynamic Sitting Balance Dynamic Sitting-Balance Support Unilateral upper extremity supported;Feet supported (unilateral UE supported on bed) Dynamic Sitting-Balance Lateral lean;Forward lean;Reaching for objects Dynamic Sitting-Sitting Surface Bed Dynamic Sitting-Level of Assistance Contact guard Dynamic Sitting-Comments Ensure safety and balance Static Standing Balance Static Standing-Balance Support Bilateral upper extremity supported (on w/w) Static Standing-Standing Surface Floor Static Standing-Level of Assistance Minimum assistance Dynamic Standing Balance Dynamic Standing-Balance Support Bilateral upper extremity supported (on therapist) Dynamic Standing-Balance Lateral lean;Forward lean Dynamic Standing-Standing Surface Floor Dynamic Standing-Level of Assistance Minimum assistance Bed Mobility Bed Mobility Yes Bed Mobility 1 Bed Mobility From 1 Supine Bed Mobility Type 1 To Bed Mobility to 1 Edge of bed Level of Assistance 1 Minimum Assist Bed Mobility Comments 1 Force production and balance Transfers Transfer Yes Transfer 1 Transfer From 1 Sit Transfer Type 1 To and from Transfer to 1 Stand Technique 1 Sit to stand;Stand to sit Transfer Device 1 Hand held assist Transfer Level of Assistance 1 Minimum Assist Trials/Comments 1 Force production and balance RUE Assessment RUE Assessment WFL LUE Assessment LUE Assessment WFL Other Comments Comments Patient is motivated to work with therapy this date and is agreeable with POC. Daily Activity - 6 Clicks Putting on and taking off regular lower body clothing 2 Bathing 2 Toileting 2 Putting on and taking off upper body clothing 3 Personal Grooming 2 Eating Meals 3 Total Score (range 6-24) 14 Score Interpretation 33.39 Safe Environment End of Therapy Session Safe Environment End of Therapy Session Patient left in recliner;RN notified;Call light within reach;Overbed table within reach (RN Pliy Momin) Assessment Problem List Decreased safe judgment during ADL;Decreased cognition;Decreased endurance;Decreased balance;Decreased functional mobility;Decreased ADL independence;Decreased IADL independence Barriers to Discharge Current Mobility Status;Current ADL Status;Decreased safety awareness Barrier Comments Fall risk Plan Plan Plan of care initiated;If this is the last note, consider this the discharge summary Recommendation/Plan OT Recommendation Inpatient Rehab Facility Patient at high risk for Falls;Readmission;Injury due to decreased ability to care for self;Injury due to reduced functional status;Injury due to balance deficits;Injury at home as patient has not returned to prior level of function Recommend Inpatient Rehab/Acute Rehab due to Ability to actively participate in intensive therapy 3hours/day, 5 days/week or 900 minutes per week;Highly motivated to participate in therapy;Not at baseline due to impaired ability to complete ADLs;Impaired ability to complete functional mobility;Likely to return to the community at discharge with support system in place;Requires greater than 25% physical assistance with most mobility tasks;Requires greater than 25% physical assistance with most ADL tasks;Requires multiple therapy disciplines to address functional deficits OT Frequency during current admission 3-5x/wk Treatment/Interventions during current admission ADL/IADL retraining;Balance Training;Bed mobility;Compensatory technique education;Endurance training;Functional activity;Functional mobility training;Functional transfer training;Strengthening;Therapeutic activity;Therapeutic exercise;Transfer traini kelli OT - Next Appointment 01/23/24 OT - OK to Discharge No OT Evaluation Complete Yes Multi-Disciplinary Problems (from Occupational Therapy) Active Problems Problem: Dressings Lower Extremities Start Date: 01/21/24 Goal Start Date Expected End Date End Date STG - Patient to complete lower body dressing 01/21/24 01/28/24 -- Goal Details: With supervision Problem: Grooming Start Date: 01/21/24 Goal Start Date Expected End Date End Date STG - Patient will complete grooming 01/21/24 01/28/24 -- Goal Details: Standing at sink with supervision Problem: Toileting Start Date: 01/21/24 Goal Start Date Expected End Date End Date STG - Patient will complete toileting tasks with 01/21/24 01/28/24 -- Goal Details: Supervision at toilet in bathroom Problem: Transfers Start Date: 01/21/24 Goal Start Date Expected End Date End Date STG - Patient will perform toilet transfer 01/21/24 01/28/24 -- Goal Details: To toilet in bathroom with supervision Problem: OT Misc Start Date: 01/21/24 Goal Start Date Expected End Date End Date OT LTG - Misc 1 01/21/24 02/04/24 -- Goal Details: Patient will perform ADL tasks with modified independence * Cinthia Stokes PA - 01/21/2024 6:00 AM CDTAssociated Order(s): Critical Care Post-Procedure Diagnose(s): 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) Surgical ICU Daily Progress Team: 8200 Blue 2 AM Subjective 73 y.o. female admitted on 01/20/2024 6:04 AM with chief complaint of CAD. Interval History: - HDSSI - Start plavix - D/c KIRSTIE's - D/c a-lines, chen/cordis Reviewed and ordered pertinent laboratory tests. Reviewed any radiological imaging pertinent to patients current treatments. Ongoing evaluation of I/O's, vitals, and oxygen requirements throughout shift. Multiple bedside evaluations of patients over all status. HPI: 73 y/o female presented for planned CABG on 01/19. Underwent CABG x3 (AGOSTO>LAD, vein>OM, vein>PDA) TONY clip, and sternal plating with Dr. Treviño. Admitted to 8200 post-operatively. PMHx: CAD, PVD, CKD, HTN, HLD, T2DM (insulin dependent) Hospital Course: 01/19: s/p CABG x3, admitted to 8200. On dobutamine 2.5 Extubated at 21:30. Objective Physical Exam Eyes: Pupils: Pupils are equal, round, and reactive to light. Cardiovascular: Rate and Rhythm: Regular rhythm. Tachycardia present. Heart sounds: Normal heart sounds. Pulmonary: Effort: Pulmonary effort is normal. Comments: 2L NC Chest: Comments: L PCT x1, MCT x2, serosanguinous. Midline sternal incision with prevena in place. Abdominal: General: Abdomen is flat. Palpations: Abdomen is soft. Musculoskeletal: Comments: KIRSTIE x2 (right thigh, left thigh), serosanguinous. Skin: General: Skin is warm and dry. Neurological: General: No focal deficit present. Mental Status: She is alert and oriented to person, place, and time. Medications Scheduled Meds:acetaminophen, 1,000 mg, feeding tube, Q6H LAMONTE aspirin, 81 mg, oral, Daily atorvastatin, 40 mg, feeding tube, Daily ceFAZolin, 2,000 mg, intravenous, Q8H chlorhexidine, 15 mL, mouth/throat, TID docusate sodium, 100 mg, oral, BID Or docusate, 100 mg, feeding tube, BID insulin lispro, 1-5 Units, subcutaneous, Q4H LAMONTE levothyroxine, 88 mcg, feeding tube, Daily - 0600 polyethylene glycol, 17 g, oral, Daily senna, 1 tablet, oral, BID Or senna, 8.8 mg, feeding tube, BID Continuous Infusions:DOButamine, 2.5 mcg/kg/min, Last Rate: 2.5 mcg/kg/min (01/21/24599) Lactated Ringer's, 10 mL/hr, Last Rate: 10 mL/hr (01/21/24599) sodium chloride 0.9%, 3-12 mL/hr, Last Rate: 9 mL/hr (01/21/24599) sodium chloride 0.9%, 3-12 mL/hr, Last Rate: 3 mL/hr (01/21/24599) PRN Meds:. dextrose OR dextrose glucagon HYDROmorphone ondansetron oxyCODONE potassium chloride sodium chloride 0.9% Vital signs for last 24 hours: Pulse: [94-117] 104 BP: (110)/(57) 110/57 Resp: [17-24] 17 SpO2: [93 %-100 %] 94 % SVO2: [53 %-73 %] 61 % Arterial Line BP: (58-142)/(47-76) 103/55 FiO2 (%): [30 %] 30 % Hemodynamics: MAP (mmHg): [72] 72 PAP: (23-37)/(6-21) 23/6 PAP (Mean): [13 mmHg-27 mmHg] 13 mmHg CVP: [6 mmHg-59 mmHg] 12 mmHg SVO2: [53 %-73 %] 61 % CO: [4.44 L/min-7.39 L/min] 7.39 L/min CI: [2.41 L/min/m2-4.02 L/min/m2] 4.02 L/min/m2 Pulmonary Support: O2 Therapy: Supplemental oxygen O2 Del Method: Nasal cannula FiO2 (%): 30 % O2 Flow Rate (L/min): 6 L/min Adult Vent Mode: Pressure support Ventilation FiO2 (%): 30 % S RR: 14 PEEP/CPAP/EPAP (cm H2O): 5 cm H20 Pressure Support (cm H2O): 10 cm H20 Intake/Output: Intake/Output Summary (Last 24 hours) at 01/21/2024 0802 Last data filed at 01/21/2024 0720 Gross per 24 hour Intake 3258.32 ml Output 1549 ml Net 1709.32 ml Lab/Radiology/Diagnostic Review: Laboratory review: Lab results in the last 12 hours: Recent Results (from the past 12 hour(s)) POCT glucose Collection Time: 01/20/24 8:35 PM Result Value Ref Range Glucose, POC 121 70 - 199 mg/dL CBC without differential Collection Time: 01/21/24 12:55 AM Result Value Ref Range WBC 8.9 3.8 - 9.9 K/cumm Hgb 8.6 (L) 11.9 - 15.5 g/dL Hct 26.4 (L) 35.6 - 45.5 % Plt 132 (L) 150 - 400 K/cumm MPV 11.0 9.1 - 12.3 fL RBC 2.88 (L) 3.90 - 5.20 M/cumm MCV 91.7 81.3 - 96.4 fL MCH 29.9 27.1 - 33.3 pg MCHC 32.6 32.3 - 35.7 g/dL RDW CV 13.3 11.1 - 14.9 % RDW SD 44.6 35.7 - 48.1 fL NRBC abs 0.00 0.00 - 0.01 K/cumm Basic metabolic panel Collection Time: 01/21/24 12:55 AM Result Value Ref Range Sodium 146 (H) 135 - 145 mmol/L Potassium, pl 4.8 3.3 - 4.9 mmol/L Chloride 114 (H) 97 - 110 mmol/L CO2 21 (L) 22 - 32 mmol/L Anion gap 11 2 - 15 mmol/L BUN 28 (H) 6 - 25 mg/dL Creatinine 0.99 0.60 - 1.10 mg/dL Glucose 193 70 - 199 mg/dL Calcium 8.8 8.5 - 10.3 mg/dL Magnesium Collection Time: 01/21/24 12:55 AM Result Value Ref Range Magnesium 2.3 1.4 - 2.5 mg/dL Phosphorus Collection Time: 01/21/24 12:55 AM Result Value Ref Range Phosphorus, pl 4.1 2.3 - 4.5 mg/dL eGFR Collection Time: 01/21/24 12:55 AM Result Value Ref Range eGFR 60 >=60 mL/min/1.73 m2 POCT glucose Collection Time: 01/21/24 3:56 AM Result Value Ref Range Glucose, POC 178 70 - 199 mg/dL Recent Results (from the past 24 hour(s)) POC Blood Gas and Chemistries, Arterial - Collection Time: 01/20/24 9:33 AM Result Value Ref Range pH, Art POC 7.39 7.35 - 7.45 pCO2, Art POC 32 (L) 35 - 45 mmHg pO2, Art POC 342 (H) 83 - 108 mmHg Na, POC 141 135 - 145 mmol/L K POC 3.7 3.3 - 4.9 mmol/L Cl, POC 113 (H) 97 - 110 mmol/L Ionized Ca, POC 4.83 4.50 - 5.10 mg/dL Glucose, POC 146 70 - 199 mg/dL Lactate, POC 1.0 0.7 - 2.2 mmol/L SO2 (kristy) arterial 100 (H) 90 - 95 % Base excess, POC -4.8 mmol/L HCO3, Art POC 21 20 - 30 mmol/L Hct, POC 33.0 (L) 36.3 - 45.3 % Total Hb, POC 11.0 (L) 11.9 - 15.5 g/dL POC Blood Gas and Chemistries, Arterial - Collection Time: 01/20/24 11:46 AM Result Value Ref Range pH, Art POC 7.28 (L) 7.35 - 7.45 pCO2, Art POC 35 35 - 45 mmHg pO2, Art POC 310 (H) 83 - 108 mmHg Na, POC 142 135 - 145 mmol/L K POC 4.4 3.3 - 4.9 mmol/L Cl, POC 111 (H) 97 - 110 mmol/L Ionized Ca, POC 4.06 (L) 4.50 - 5.10 mg/dL Glucose, POC 183 70 - 199 mg/dL Lactate, POC 0.8 0.7 - 2.2 mmol/L SO2 (kristy) arterial 100 (H) 90 - 95 % Base excess, POC -9.5 mmol/L HCO3, Art POC 18 (L) 20 - 30 mmol/L Hct, POC 26.0 (L) 36.3 - 45.3 % Total Hb, POC 8.8 (L) 11.9 - 15.5 g/dL POC Blood Gas and Chemistries, Arterial - Collection Time: 01/20/24 12:16 PM Result Value Ref Range pH, Art POC 7.34 (L) 7.35 - 7.45 pCO2, Art POC 40 35 - 45 mmHg pO2, Art POC 252 (H) 83 - 108 mmHg Na, POC 143 135 - 145 mmol/L K POC 4.4 3.3 - 4.9 mmol/L Cl, POC 114 (H) 97 - 110 mmol/L Ionized Ca, POC 4.52 4.50 - 5.10 mg/dL Glucose, POC 199 70 - 199 mg/dL Lactate, POC 0.9 0.7 - 2.2 mmol/L SO2 (kristy) arterial 100 (H) 90 - 95 % Base excess, POC -3.9 mmol/L HCO3, Art POC 22 20 - 30 mmol/L Hct, POC 26.0 (L) 36.3 - 45.3 % Total Hb, POC 8.5 (L) 11.9 - 15.5 g/dL POC Blood Gas and Chemistries, Arterial - Collection Time: 01/20/24 12:50 PM Result Value Ref Range pH, Art POC 7.29 (L) 7.35 - 7.45 pCO2, Art POC 43 35 - 45 mmHg pO2, Art POC 232 (H) 83 - 108 mmHg Na, POC 143 135 - 145 mmol/L K POC 4.5 3.3 - 4.9 mmol/L Cl, POC 115 (H) 97 - 110 mmol/L Ionized Ca, POC 4.80 4.50 - 5.10 mg/dL Glucose, POC 183 70 - 199 mg/dL Lactate, POC 1.2 0.7 - 2.2 mmol/L SO2 (kristy) arterial 99 (H) 90 - 95 % Base excess, POC -5.5 mmol/L HCO3, Art POC 21 20 - 30 mmol/L Hct, POC 26.0 (L) 36.3 - 45.3 % Total Hb, POC 8.5 (L) 11.9 - 15.5 g/dL POC Blood Gas and Chemistries, Arterial - Collection Time: 01/20/24 1:15 PM Result Value Ref Range pH, Art POC 7.40 7.35 - 7.45 pCO2, Art POC 31 (L) 35 - 45 mmHg pO2, Art POC 207 (H) 83 - 108 mmHg Na, POC 143 135 - 145 mmol/L K POC 4.7 3.3 - 4.9 mmol/L Cl, POC 116 (H) 97 - 110 mmol/L Ionized Ca, POC 4.68 4.50 - 5.10 mg/dL Glucose, POC 184 70 - 199 mg/dL Lactate, POC 1.3 0.7 - 2.2 mmol/L SO2 (kristy) arterial 99 (H) 90 - 95 % Base excess, POC -4.9 mmol/L HCO3, Art POC 19 (L) 20 - 30 mmol/L Hct, POC 25.0 (L) 36.3 - 45.3 % Total Hb, POC 8.4 (L) 11.9 - 15.5 g/dL POC Blood Gas and Chemistries, Arterial - Collection Time: 01/20/24 1:44 PM Result Value Ref Range pH, Art POC 7.41 7.35 - 7.45 pCO2, Art POC 34 (L) 35 - 45 mmHg pO2, Art POC 249 (H) 83 - 108 mmHg Na, POC 144 135 - 145 mmol/L K POC 4.6 3.3 - 4.9 mmol/L Cl, POC 116 (H) 97 - 110 mmol/L Ionized Ca, POC 4.58 4.50 - 5.10 mg/dL Glucose, POC 169 70 - 199 mg/dL Lactate, POC 1.4 0.7 - 2.2 mmol/L SO2 (kristy) arterial 99 (H) 90 - 95 % Base excess, POC -2.7 mmol/L HCO3, Art POC 22 20 - 30 mmol/L Hct, POC 24.0 (L) 36.3 - 45.3 % Total Hb, POC 7.9 (L) 11.9 - 15.5 g/dL POCT hemoglobin, hematocrit and platelet count Collection Time: 01/20/24 2:13 PM Result Value Ref Range Hgb, POC 8.0 (L) 11.9 - 15.5 g/dL Hematocrit POC 24.1 (L) 35.6 - 45.5 % Platelet POC 102 (L) 150 - 400 K/cumm POCT Partial thromboplastin time (PTT) Collection Time: 01/20/24 2:15 PM Result Value Ref Range APTT, POC 22.2 (L) 32.5 - 46.1 sec POCT prothrombin time Collection Time: 01/20/24 2:16 PM Result Value Ref Range PT, POC 29.6 (H) 11.7 - 16.6 sec INR, POC 2.3 (H) 0.9 - 1.3 POC Blood Gas and Chemistries, Arterial - Collection Time: 01/20/24 2:17 PM Result Value Ref Range pH, Art POC 7.36 7.35 - 7.45 pCO2, Art POC 37 35 - 45 mmHg pO2, Art POC 282 (H) 83 - 108 mmHg Na, POC 145 135 - 145 mmol/L K POC 4.0 3.3 - 4.9 mmol/L Cl, POC 117 (H) 97 - 110 mmol/L Ionized Ca, POC 5.75 (H) 4.50 - 5.10 mg/dL Glucose, POC 164 70 - 199 mg/dL Lactate, POC 1.4 0.7 - 2.2 mmol/L SO2 (kristy) arterial 100 (H) 90 - 95 % Base excess, POC -4.2 mmol/L HCO3, Art POC 22 20 - 30 mmol/L Hct, POC 18.0 (L) 36.3 - 45.3 % Total Hb, POC 6.0 (L) 11.9 - 15.5 g/dL POCT hemoglobin, hematocrit and platelet count Collection Time: 01/20/24 2:56 PM Result Value Ref Range Hgb, POC 8.1 (L) 11.9 - 15.5 g/dL Hematocrit POC 24.5 (L) 35.6 - 45.5 % Platelet POC 122 (L) 150 - 400 K/cumm POC Blood Gas and Chemistries, Arterial - Collection Time: 01/20/24 4:43 PM Result Value Ref Range pH, Art POC 7.40 7.35 - 7.45 pCO2, Art POC 33 (L) 35 - 45 mmHg pO2, Art POC 116 (H) 83 - 108 mmHg Na, POC 145 135 - 145 mmol/L K POC 3.6 3.3 - 4.9 mmol/L Cl, POC 118 (H) 97 - 110 mmol/L Ionized Ca, POC 5.08 4.50 - 5.10 mg/dL Glucose, POC 104 70 - 199 mg/dL Lactate, POC 1.0 0.7 - 2.2 mmol/L SO2 (kristy) arterial 100 (H) 90 - 95 % Base excess, POC -3.8 mmol/L HCO3, Art POC 20 20 - 30 mmol/L Hct, POC 27.0 (L) 36.3 - 45.3 % Total Hb, POC 9.1 (L) 11.9 - 15.5 g/dL CBC without differential Collection Time: 01/20/24 4:52 PM Result Value Ref Range WBC 8.7 3.8 - 9.9 K/cumm Hgb 8.7 (L) 11.9 - 15.5 g/dL Hct 26.5 (L) 35.6 - 45.5 % Plt 143 (L) 150 - 400 K/cumm MPV 11.1 9.1 - 12.3 fL RBC 2.98 (L) 3.90 - 5.20 M/cumm MCV 88.9 81.3 - 96.4 fL MCH 29.2 27.1 - 33.3 pg MCHC 32.8 32.3 - 35.7 g/dL RDW CV 13.2 11.1 - 14.9 % RDW SD 42.7 35.7 - 48.1 fL NRBC abs 0.00 0.00 - 0.01 K/cumm Protime-INR Collection Time: 01/20/24 4:52 PM Result Value Ref Range PT 13.3 (H) 9.7 - 13.0 sec INR 1.23 (H) 0.90 - 1.20 aPTT Collection Time: 01/20/24 4:52 PM Result Value Ref Range aPTT 29 28 - 38 sec Phosphorus Collection Time: 01/20/24 4:52 PM Result Value Ref Range Phosphorus, pl 1.8 (L) 2.3 - 4.5 mg/dL Basic metabolic panel Collection Time: 01/20/24 4:52 PM Result Value Ref Range Sodium 147 (H) 135 - 145 mmol/L Potassium, pl 3.8 3.3 - 4.9 mmol/L Chloride 114 (H) 97 - 110 mmol/L CO2 23 22 - 32 mmol/L Anion gap 10 2 - 15 mmol/L BUN 28 (H) 6 - 25 mg/dL Creatinine 0.94 0.60 - 1.10 mg/dL Glucose 107 70 - 199 mg/dL Calcium 9.2 8.5 - 10.3 mg/dL Magnesium Collection Time: 01/20/24 4:52 PM Result Value Ref Range Magnesium 2.7 (H) 1.4 - 2.5 mg/dL eGFR Collection Time: 01/20/24 4:52 PM Result Value Ref Range eGFR 64 >=60 mL/min/1.73 m2 Triglycerides Collection Time: 01/20/24 4:52 PM Result Value Ref Range Triglycerides 88 <=149 mg/dL POCT glucose Collection Time: 01/20/24 6:06 PM Result Value Ref Range Glucose, POC 106 70 - 199 mg/dL POCT glucose Collection Time: 01/20/24 8:35 PM Result Value Ref Range Glucose, POC 121 70 - 199 mg/dL CBC without differential Collection Time: 01/21/24 12:55 AM Result Value Ref Range WBC 8.9 3.8 - 9.9 K/cumm Hgb 8.6 (L) 11.9 - 15.5 g/dL Hct 26.4 (L) 35.6 - 45.5 % Plt 132 (L) 150 - 400 K/cumm MPV 11.0 9.1 - 12.3 fL RBC 2.88 (L) 3.90 - 5.20 M/cumm MCV 91.7 81.3 - 96.4 fL MCH 29.9 27.1 - 33.3 pg MCHC 32.6 32.3 - 35.7 g/dL RDW CV 13.3 11.1 - 14.9 % RDW SD 44.6 35.7 - 48.1 fL NRBC abs 0.00 0.00 - 0.01 K/cumm Basic metabolic panel Collection Time: 01/21/24 12:55 AM Result Value Ref Range Sodium 146 (H) 135 - 145 mmol/L Potassium, pl 4.8 3.3 - 4.9 mmol/L Chloride 114 (H) 97 - 110 mmol/L CO2 21 (L) 22 - 32 mmol/L Anion gap 11 2 - 15 mmol/L BUN 28 (H) 6 - 25 mg/dL Creatinine 0.99 0.60 - 1.10 mg/dL Glucose 193 70 - 199 mg/dL Calcium 8.8 8.5 - 10.3 mg/dL Magnesium Collection Time: 01/21/24 12:55 AM Result Value Ref Range Magnesium 2.3 1.4 - 2.5 mg/dL Phosphorus Collection Time: 01/21/24 12:55 AM Result Value Ref Range Phosphorus, pl 4.1 2.3 - 4.5 mg/dL eGFR Collection Time: 01/21/24 12:55 AM Result Value Ref Range eGFR 60 >=60 mL/min/1.73 m2 POCT glucose Collection Time: 01/21/24 3:56 AM Result Value Ref Range Glucose, POC 178 70 - 199 mg/dL XR Chest 1 View Result Date: 01/20/2024 The chest is open. Right-sided pulmonary artery catheter is in place with tip terminating in the proximal right main pulmonary artery. Left atrial appendage clip in place. An endotracheal tube is approximately 1 centimeters above the balaji. Left-sided thoracostomy tube and right pericardial drain are in place. No retained surgical needle or other surgical instrument is seen. There are small lungvolumes, as a consequence there is both vascular crowding and atelectasis. No definite pleural effusion. Small right-sided lateral pneumothorax. No left-sided pneumothorax. Cardiomediastinal silhouette is stable. Dictated by: Kaushik Valentin M.D. The radiology attending physician has personally reviewed this study, and had reviewed and/or edited this written report and agrees with it. Electronicallysigned by: Erica Mustafa M.D. Assessment/Plan Principal Problem: Coronary artery disease Active Problems: Coronary artery disease due to calcified coronary lesion CAD, multiple vessel NEURO: #Acute Pain: - Tylenol scheduled - Oxycodone, dilaudid prn - Continue to reassess, pain goal < 4 CV: #CAD #PVD #ACS: chronic - (01/16) s/p CABG x3 (AGOSTO>LAD, vein>OM, vein>PDA) TONY clip, and sternal plating with Dr. Treviño - Asa daily - SBP goal 100-130 - Erin-op vanc and ancef - KIRSTIE drains x2 (one to right thigh, one to left thigh), MCT x2, Left PCT x1 - Monitor drain output q4h - Daily CXR while chest tubes are in - CTS primary #HTN #HLD: chronic - Home Regimen: amlodipine, furosemide, atorvastatin - Holding antihypertensives in the setting of hypotension - Continue home atorvastatin PULM: - Currently on 2L NC, SpO2 goal > 92%. - Encourage pulmonary hygiene, PT/OT, OOB, IS GI: Diet: Cardiac Diet Bowel regimen: Doc, Senna PUD PPx: Pepcid ENDO: #Type II Diabetes Mellitus: chronic - Home Regimen: semaglutide - Switched to HDSSI #Hypothyroidism: chronic - Continue home synthroid RENAL: - Bright in place - Strict I&O's - Trend BMP - Renally dose medications, avoid nephrotoxins Lab Results Component Value Date CREATININE 0.99 01/21/2024 HEME: DVT Ppx: SCDs #ABLA: - No s/s bleeding, transfuse for Hgb < 7 or other clinical indication, continue to monitor CBC Lab Results Component Value Date HGB 8.6 (L) 01/21/2024 ID: #Leukocytosis: - Currently afebrile - Continue to trend fever curve, monitor CBC - Antibiotics and cultures as below Lab Results Component Value Date WBC 8.9 01/21/2024 Antibiotics: Ancef (01/19-01/20) Vancomycin (01/19-01/20) Cultures: N/a Intensive Care Unit Standards of Care: Restraints: Not Indicated DVT Prophylaxis: SCDs Vascular Access: R fem a-line (01/19), R IJ Cordis/Chen with infusion port (01/19), R axillary a-line (01/19), PIVs Goals of Care: Full Code Cinthia Stokes, [facility], PA-C Critical Care Performed by: Cinthia Stokes PA Authorized by: Cinthia Stokes PA CRITICAL CARE: Team: 83 CTICU Shift: AM Level of Billing: Critical Care My time spent with this patient was 60 minutes: Critical Provider Statement: I have seen and examined the patient on this day of service. I have reviewed and confirmed the history, physical exam, laboratory and radiologic data as documented in thesigned ICU note. I have reviewed and discussed my treatment plan with the ICU team and other medical/employment consultant staff, making frequent assessments and decisions regarding this patient's complex medical care. Critical Care time was exclusive of time spent performing separately billed procedures, treating other patients, and teaching. This time was in addition to and separate from critical care provided by other practitioners in my group on this day of service. Critical Care was necessary to treat or prevent imminent or life-threatening deterioration of the following conditions: I spent time reviewing and interpreting data from bedside monitors, laboratory results, and imaging, I spent time discussing the management of this critically ill patient with consultants and the medical staff and I spent time documenting in the medical record Cosigned by Judson Rodríguez MD at 02/02/2024 12:52 PM CDT * Yisel Quintero, JAMES - 01/20/2024 7:09 PM CDTAssociated Order(s): Critical Care Post-Procedure Diagnose(s): 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) Surgical ICU Daily Progress Team: 8200 Blue 2 PM Subjective Isabelle Lutz is a 73 y.o. female admitted on 01/20/2024 6:04 AM with chief complaint of CAD. PMH: CAD, PVD, CKD, HTN, HLD, T2DM (insulin dependent) Abbreviated Hospital Course: 01/19: s/p CABG x3, admitted to 8200 intubated, on dobutamine. Extubated overnight. Interval History: - Extubated to RI ~2130 - Dobutamine continued at 2.5, per CTS - Potassium, phosphorus, magnesium, calcium repleted Objective Physical Exam: General: Intubated/sedated Neuro: Rousable to voice, follows commands, ANDERSON, PERRL Cardiac: S1 and S2, Regular Rate and Rhythm, no M/G/R Pulmonary: Lungs diminished to auscultation, respirations even, intubated on mechanical ventilation Abdominal: Soft/Nontender/Nondistended, obese, normoactive bowel sounds Extremities: No edema, Pulses Present and Palpable Drains: Kaila, KIRSTIE x2 (BL thigh), prevena to sternal surgical incision, med CT x2, left pleural CT x1 Wounds: See RN flowsheet Vital signs for last 24 hours: Temp: [36.3 ??C (97.3 ??F)] 36.3 ??C (97.3 ??F) Pulse: [77-104] 104 BP: (108-121)/(47-57) 110/57 Resp: [12-24] 22 SpO2: [95 %-100 %] 100 % SVO2: [63 %-66 %] 63 % Arterial Line BP: (85-138)/(48-68) 138/68 FiO2 (%): [30 %] 30 % Hemodynamics: MAP (mmHg): [63-76] 72 PAP: (36-37)/(19-21) 37/21 PAP (Mean): [26 mmHg-27 mmHg] 27 mmHg CVP: [14 mmHg-16 mmHg] 14 mmHg SVO2: [63 %-66 %] 63 % CO: [4.44 L/min-5.4 L/min] 5.4 L/min CI: [2.41 L/min/m2-3 L/min/m2] 3 L/min/m2 Pulmonary Support: O2 Therapy: Supplemental oxygen O2 Del Method: Endotracheal tube FiO2 (%): 30 % Adult Vent Mode: Volume control/Assist control FiO2 (%): 30 % S RR: 14 PEEP/CPAP/EPAP (cm H2O): 5 cm H20 Intake/Output: Intake/Output Summary (Last 24 hours) at 01/20/20241908 Last data filed at 01/20/20241899 Gross per 24 hour Intake 1923.91 ml Output 634 ml Net 1289.91 ml Lab/Radiology/Diagnostic Review: Laboratory review: Lab results in the last 12 hours: Recent Results (from the past 12 hour(s)) POC Blood Gas and Chemistries, Arterial - Collection Time: 01/20/24 9:33 AM Result Value Ref Range pH, Art POC 7.39 7.35 - 7.45 pCO2, Art POC 32 (L) 35 - 45 mmHg pO2, Art POC 342 (H) 83 - 108 mmHg Na, POC 141 135 - 145 mmol/L K POC 3.7 3.3 - 4.9 mmol/L Cl, POC 113 (H) 97 - 110 mmol/L Ionized Ca, POC 4.83 4.50 - 5.10 mg/dL Glucose, POC 146 70 - 199 mg/dL Lactate, POC 1.0 0.7 - 2.2 mmol/L SO2 (kristy) arterial 100 (H) 90 - 95 % Base excess, POC -4.8 mmol/L HCO3, Art POC 21 20 - 30 mmol/L Hct, POC 33.0 (L) 36.3 - 45.3 % Total Hb, POC 11.0 (L) 11.9 - 15.5 g/dL POC Blood Gas and Chemistries, Arterial - Collection Time: 01/20/24 11:46 AM Result Value Ref Range pH, Art POC 7.28 (L) 7.35 - 7.45 pCO2, Art POC 35 35 - 45 mmHg pO2, Art POC 310 (H) 83 - 108 mmHg Na, POC 142 135 - 145 mmol/L K POC 4.4 3.3 - 4.9 mmol/L Cl, POC 111 (H) 97 - 110 mmol/L Ionized Ca, POC 4.06 (L) 4.50 - 5.10 mg/dL Glucose, POC 183 70 - 199 mg/dL Lactate, POC 0.8 0.7 - 2.2 mmol/L SO2 (kristy) arterial 100 (H) 90 - 95 % Base excess, POC -9.5 mmol/L HCO3, Art POC 18 (L) 20 - 30 mmol/L Hct, POC 26.0 (L) 36.3 - 45.3 % Total Hb, POC 8.8 (L) 11.9 - 15.5 g/dL POC Blood Gas and Chemistries, Arterial - Collection Time: 01/20/24 12:16 PM Result Value Ref Range pH, Art POC 7.34 (L) 7.35 - 7.45 pCO2, Art POC 40 35 - 45 mmHg pO2, Art POC 252 (H) 83 - 108 mmHg Na, POC 143 135 - 145 mmol/L K POC 4.4 3.3 - 4.9 mmol/L Cl, POC 114 (H) 97 - 110 mmol/L Ionized Ca, POC 4.52 4.50 - 5.10 mg/dL Glucose, POC 199 70 - 199 mg/dL Lactate, POC 0.9 0.7 - 2.2 mmol/L SO2 (kristy) arterial 100 (H) 90 - 95 % Base excess, POC -3.9 mmol/L HCO3, Art POC 22 20 - 30 mmol/L Hct, POC 26.0 (L) 36.3 - 45.3 % Total Hb, POC 8.5 (L) 11.9 - 15.5 g/dL POC Blood Gas and Chemistries, Arterial - Collection Time: 01/20/24 12:50 PM Result Value Ref Range pH, Art POC 7.29 (L) 7.35 - 7.45 pCO2, Art POC 43 35 - 45 mmHg pO2, Art POC 232 (H) 83 - 108 mmHg Na, POC 143 135 - 145 mmol/L K POC 4.5 3.3 - 4.9 mmol/L Cl, POC 115 (H) 97 - 110 mmol/L Ionized Ca, POC 4.80 4.50 - 5.10 mg/dL Glucose, POC 183 70 - 199 mg/dL Lactate, POC 1.2 0.7 - 2.2 mmol/L SO2 (kristy) arterial 99 (H) 90 - 95 % Base excess, POC -5.5 mmol/L HCO3, Art POC 21 20 - 30 mmol/L Hct, POC 26.0 (L) 36.3 - 45.3 % Total Hb, POC 8.5 (L) 11.9 - 15.5 g/dL POC Blood Gas and Chemistries, Arterial - Collection Time: 01/20/24 1:15 PM Result Value Ref Range pH, Art POC 7.40 7.35 - 7.45 pCO2, Art POC 31 (L) 35 - 45 mmHg pO2, Art POC 207 (H) 83 - 108 mmHg Na, POC 143 135 - 145 mmol/L K POC 4.7 3.3 - 4.9 mmol/L Cl, POC 116 (H) 97 - 110 mmol/L Ionized Ca, POC 4.68 4.50 - 5.10 mg/dL Glucose, POC 184 70 - 199 mg/dL Lactate, POC 1.3 0.7 - 2.2 mmol/L SO2 (kristy) arterial 99 (H) 90 - 95 % Base excess, POC -4.9 mmol/L HCO3, Art POC 19 (L) 20 - 30 mmol/L Hct, POC 25.0 (L) 36.3 - 45.3 % Total Hb, POC 8.4 (L) 11.9 - 15.5 g/dL POC Blood Gas and Chemistries, Arterial - Collection Time: 01/20/24 1:44 PM Result Value Ref Range pH, Art POC 7.41 7.35 - 7.45 pCO2, Art POC 34 (L) 35 - 45 mmHg pO2, Art POC 249 (H) 83 - 108 mmHg Na, POC 144 135 - 145 mmol/L K POC 4.6 3.3 - 4.9 mmol/L Cl, POC 116 (H) 97 - 110 mmol/L Ionized Ca, POC 4.58 4.50 - 5.10 mg/dL Glucose, POC 169 70 - 199 mg/dL Lactate, POC 1.4 0.7 - 2.2 mmol/L SO2 (kristy) arterial 99 (H) 90 - 95 % Base excess, POC -2.7 mmol/L HCO3, Art POC 22 20 - 30 mmol/L Hct, POC 24.0 (L) 36.3 - 45.3 % Total Hb, POC 7.9 (L) 11.9 - 15.5 g/dL POCT hemoglobin, hematocrit and platelet count Collection Time: 01/20/24 2:13 PM Result Value Ref Range Hgb, POC 8.0 (L) 11.9 - 15.5 g/dL Hematocrit POC 24.1 (L) 35.6 - 45.5 % Platelet POC 102 (L) 150 - 400 K/cumm POCT Partial thromboplastin time (PTT) Collection Time: 01/20/24 2:15 PM Result Value Ref Range APTT, POC 22.2 (L) 32.5 - 46.1 sec POCT prothrombin time Collection Time: 01/20/24 2:16 PM Result Value Ref Range PT, POC 29.6 (H) 11.7 - 16.6 sec INR, POC 2.3 (H) 0.9 - 1.3 POC Blood Gas and Chemistries, Arterial - Collection Time: 01/20/24 2:17 PM Result Value Ref Range pH, Art POC 7.36 7.35 - 7.45 pCO2, Art POC 37 35 - 45 mmHg pO2, Art POC 282 (H) 83 - 108 mmHg Na, POC 145 135 - 145 mmol/L K POC 4.0 3.3 - 4.9 mmol/L Cl, POC 117 (H) 97 - 110 mmol/L Ionized Ca, POC 5.75 (H) 4.50 - 5.10 mg/dL Glucose, POC 164 70 - 199 mg/dL Lactate, POC 1.4 0.7 - 2.2 mmol/L SO2 (kristy) arterial 100 (H) 90 - 95 % Base excess, POC -4.2 mmol/L HCO3, Art POC 22 20 - 30 mmol/L Hct, POC 18.0 (L) 36.3 - 45.3 % Total Hb, POC 6.0 (L) 11.9 - 15.5 g/dL POCT hemoglobin, hematocrit and platelet count Collection Time: 01/20/24 2:56 PM Result Value Ref Range Hgb, POC 8.1 (L) 11.9 - 15.5 g/dL Hematocrit POC 24.5 (L) 35.6 - 45.5 % Platelet POC 122 (L) 150 - 400 K/cumm POC Blood Gas and Chemistries, Arterial - Collection Time: 01/20/24 4:43 PM Result Value Ref Range pH, Art POC 7.40 7.35 - 7.45 pCO2, Art POC 33 (L) 35 - 45 mmHg pO2, Art POC 116 (H) 83 - 108 mmHg Na, POC 145 135 - 145 mmol/L K POC 3.6 3.3 - 4.9 mmol/L Cl, POC 118 (H) 97 - 110 mmol/L Ionized Ca, POC 5.08 4.50 - 5.10 mg/dL Glucose, POC 104 70 - 199 mg/dL Lactate, POC 1.0 0.7 - 2.2 mmol/L SO2 (kristy) arterial 100 (H) 90 - 95 % Base excess, POC -3.8 mmol/L HCO3, Art POC 20 20 - 30 mmol/L Hct, POC 27.0 (L) 36.3 - 45.3 % Total Hb, POC 9.1 (L) 11.9 - 15.5 g/dL CBC without differential Collection Time: 01/20/24 4:52 PM Result Value Ref Range WBC 8.7 3.8 - 9.9 K/cumm Hgb 8.7 (L) 11.9 - 15.5 g/dL Hct 26.5 (L) 35.6 - 45.5 % Plt 143 (L) 150 - 400 K/cumm MPV 11.1 9.1 - 12.3 fL RBC 2.98 (L) 3.90 - 5.20 M/cumm MCV 88.9 81.3 - 96.4 fL MCH 29.2 27.1 - 33.3 pg MCHC 32.8 32.3 - 35.7 g/dL RDW CV 13.2 11.1 - 14.9 % RDW SD 42.7 35.7 - 48.1 fL NRBC abs 0.00 0.00 - 0.01 K/cumm Protime-INR Collection Time: 01/20/24 4:52 PM Result Value Ref Range PT 13.3 (H) 9.7 - 13.0 sec INR 1.23 (H) 0.90 - 1.20 aPTT Collection Time: 01/20/24 4:52 PM Result Value Ref Range aPTT 29 28 - 38 sec Phosphorus Collection Time: 01/20/24 4:52 PM Result Value Ref Range Phosphorus, pl 1.8 (L) 2.3 - 4.5 mg/dL Basic metabolic panel Collection Time: 01/20/24 4:52 PM Result Value Ref Range Sodium 147 (H) 135 - 145 mmol/L Potassium, pl 3.8 3.3 - 4.9 mmol/L Chloride 114 (H) 97 - 110 mmol/L CO2 23 22 - 32 mmol/L Anion gap 10 2 - 15 mmol/L BUN 28 (H) 6 - 25 mg/dL Creatinine 0.94 0.60 - 1.10 mg/dL Glucose 107 70 - 199 mg/dL Calcium 9.2 8.5 - 10.3 mg/dL Magnesium Collection Time: 01/20/24 4:52 PM Result Value Ref Range Magnesium 2.7 (H) 1.4 - 2.5 mg/dL eGFR Collection Time: 01/20/24 4:52 PM Result Value Ref Range eGFR 64 >=60 mL/min/1.73 m2 Triglycerides Collection Time: 01/20/24 4:52 PM Result Value Ref Range Triglycerides 88 <=149 mg/dL POCT glucose Collection Time: 01/20/24 6:06 PM Result Value Ref Range Glucose, POC 106 70 - 199 mg/dL Assessment/Plan Principal Problem: Coronary artery disease Active Problems: Coronary artery disease due to calcified coronary lesion CAD, multiple vessel Plan of care: Neurologic: #Acute Pain: - Tylenol scheduled - Oxycodone, dilaudid prn - Continue to reassess, pain goal < 4 #Agitation Requiring Sedation: - Propofol gtt - RASS goal 0 to -2 Cardiovascular: #CAD #PVD #ACS: chronic - (01/16) s/p CABG x3 (AGOSTO>LAD, vein>OM, vein>PDA) TONY clip, and sternal plating ([place]) - Start asa daily - SBP goal 100-130 - Okay to extubate - Erin-op vanc and ancef - KIRSTIE drains x2 (one to right thigh, one to left thigh), MCT x2, Left PCT x1 - Continue dobutamine 2.5 mcg/kg/min - Monitor drain output q4h - Daily CXR while chest tubes are in - CTS primary #HTN #HLD: chronic - Home Regimen: amlodipine, furosemide, atorvastatin - Holding antihypertensives in the setting of hypotension - Continue home atorvastatin Pulmonary: #Short Term Mechanical Ventilation: - (01/19) Intubated for OR - AC/VC 14/400/30/5 - F/u CXR - Plan to SBT shortly after arrival to ICU - VAP/PUD ppx - SpO2 goal > 92% GI: - Diet: NPO, NGT to LIS - Bowel regimen: Docusate, senna - PUD PPx: Famotidine Endocrine: #Type II Diabetes Mellitus: chronic - Home Regimen: semaglutide - ICU SSI #Hypothyroidism: chronic - Continue home synthroid Renal: - Cr: 1.05 - Bright in place - Strict I&O's - Trend BMP - Renally dose medications, avoid nephrotoxins Hematology: #ABLA - 2/2 Surgical procedure - H&H: 9.1 - No s/s active bleeding, will continue to monitor closely, f/u CBC - DVT PPx: SCDs ID: - WBC: 8.5 - Afebrile - Erin-op vancomycin, ancef - Continue to trend WBC, fever curve Intensive Care Unit Standards of Care: DVT prophylaxis: SCDs Vascular access: R fem a-line (01/19), R axillary a-line (01/19), RIJ Cordis/Salkum (01/19), PIV x2 Goals of care: Full code 8200 Blue 2 PM Assessment and plan has been reviewed with fellow and ICU attending, Dr. Rodríguez. Yisel Quintero NP Critical Care Performed by: Yisel Quintero NP Authorized by: Yisel Quintero NP CRITICAL CARE: Team: 83 CTICU Shift: PM Level of Billing: Critical Care My time spent with this patient was 85 minutes: Critical Provider Statement: I have seen and examined the patient on this day of service. I have reviewed and confirmed the history, physical exam, laboratory and radiologic data as documented in thesigned ICU note. I have reviewed and discussed my treatment plan with the ICU team and other medical/employment consultant staff, making frequent assessments and decisions regarding this patient's complex medical care. Critical Care time was exclusive of time spent performing separately billed procedures, treating other patients, and teaching. This time was in addition to and separate from critical care provided by other practitioners in my group on this day of service. Critical Care was necessary to treat or prevent imminent or life-threatening deterioration of the following conditions: I spent time reviewing and interpreting data from bedside monitors, laboratory results, and imaging, I spent time discussing the management of this critically ill patient with consultants and the medical staff and I spent time documenting in the medical record Cosigned by Judson Rodríguez MD at 02/02/2024 12:56 PM CDT documented in this encounter H&P Notes * Cinthia Stokes PA - 01/20/2024 4:47 PM CDTAssociated Order(s): Critical Care ICU History and Physical Team: 8200 AM Blue 2 Subjective Patient is a 73 y.o. female presented to the ICU with chief complaint of CAD. HPI: 73 y/o female that initially presented in 11/2023 for shortness of breath. She underwent a during dobuatmine stress echo and was observed to have inferior wall akinesis at rest and dobutamine stress induced changes to the anterolateral wall. Additionally, she began to experience fullness in herneck during the stress test that was relieved with sublingual nitroglycerin. She was then admitted for evaluation for urgent vs elective PCI in the setting of possible ACS. Cath on 11/25/2023 revealedsevere multivessel coronary disease with chronic total occlusion of a large RCA, severely calcifieddisease in the proximal circumflex, diffuse heavily calcified disease in the proximal LAD with a severe lesion in the mid to apical LAD. EKG with bifasiciular block (unchanged from previous). Troponins normal at that time. Patient presents on 01/20/2024 for planned procedure. She is now s/p CABG x3 (AGOSTO>LAD, vein>OM, vein>PDA) TONY clip, and sternal plating with Dr. Treviño. During case, CI 4.0, on dobutamine 5.0. OR totals included 200 cell saver, 250 albumin, and 500 LR. Admitted to 8200 post-operatively. Arrives intubated, sedated. CI 2.1. Off levo, on dobutamine at 2.5 and propofol at 50. PMHx: CAD, PVD, CKD, HTN, HLD, T2DM (insulin dependent) Past Medical History: Diagnosis Date Cataract CHF (congestive heart failure) (CMS/HCC) (HCC) Coronary artery disease Diabetes mellitus (HCC) Diabetic retinopathy (HCC) Glaucoma Hypertension Multiparity History Of ___ Previous Pregnancies - 7 pregnancies, 2 children - C-sections. (Added by TW Conv) Nonproliferative diabetic retinopathy (HCC) 11/03/2009 Personal history of other specified conditions History of chest pain - Stress test negative on 08/01/06 (Added by TW Conv) Thyroid disease Past Surgical History: Procedure Laterality Date CATARACT EXTRACTION Right 06/14/2022 CE/IOL + goniotomy [place] APPENDECTOMY unkown dates per pt [place] DELIVERY ONLY Section - in 1972 and 1975 (Added by TW Conv) [place] TENDON SHEATH INCISION Hand Incision Tendon Sheath Of A Finger - right hand, III finger, 4/10 (Added by TW Conv) Medications Prior to Admission Medication Sig Dispense Refill Last Dose acetaminophen ER (TYLENOL) 650 mg 8 hr tablet Take 1 tablet (650 mg total) by mouth every 6 (six) hours as needed for pain 01/19/2024 aspirin 81 mg enteric coated tablet Take 1 tablet (81 mg total) by mouth every morning 01/19/2024 atorvastatin (LIPITOR) 40 mg tablet Take 1 tablet (40 mg total) by mouth daily (Patient taking differently: Take 1 tablet (40 mg total) by mouth every morning) 90 tablet 3 01/19/2024 blood glucose diagnostic (glucose blood) strip Testing once daily 100 each 2 01/20/2024 brimonidine-timoloL (Combigan) 0.2-0.5 % ophthalmic solution Administer 1 drop into the left eye 2 (two) times a day (Patient taking differently: Administer 1 drop into the left eye 2 (two) times a day) 15 mL 3 01/19/2024 chlorhexidine (HIBICLENS) 4 % external liquid Apply topically daily as needed for wound care For 5 days prior to procedure (Patient taking differently: Apply 1 Application topically daily For 5 days prior to procedure) 236 mL 0 01/20/2024 chlorhexidine (PERIDEX) 0.12 % solution Apply 15 mL to the mouth or throat 2 (two) times a day (Patient taking differently: Apply 15 mL to the mouth or throat 3 (three) times a day) 473 mL 0 01/20/2024 ergocalciferol (VITAMIN D) 50,000 unit capsule TAKE 1 CAPSULE BY MOUTH ONCE WEEKLY (Patient taking differently: Take 1 capsule (50,000 Units total) by mouth once a week Saturday) 12 capsule 1 Past Week furosemide (LASIX ORAL) Take 10 mg by mouth every morning 01/19/2024 insulin aspart (NovoLOG) 100 unit/mL (3 mL) pen for injection Inject 12 Units under the skin 3 (three) times a day 45 mL 2 01/19/2024 insulin glargine (BASAGLAR) 100 unit/mL (3 mL) pen for injection Inject 50 Units under the skin daily before breakfast (Patient taking differently: Inject 50 Units under the skin every morning) 45 mL3 01/19/2024 insulin lispro (HumaLOG, ADMELOG) 100 unit/mL vial for injection Inject 10 Units under the skin 3 (three) times a day before meals Plus sliding scale 01/19/2024 latanoprost (XALATAN) 0.005 % ophthalmic solution INSTILL 1 DROP INTO BOTH EYES NIGHTLY (Patient taking differently: Administer 1 drop into both eyes nightly) 7.5 mL 3 01/19/2024 levothyroxine (SYNTHROID) 88 mcg tablet TAKE 1 TABLET BY MOUTH EVERY DAY (Patient taking differently: Take 1 tablet (88 mcg total) by mouth every morning) 90 tablet 3 01/19/2024 metFORMIN (GLUCOPHAGE) 500 mg tablet Take 1 tablet (500 mg total) by mouth daily (Patient taking differently: Take 1 tablet (500 mg total) by mouth every morning) 90 tablet 3 01/19/2024 mupirocin (BACTROBAN) 2 % ointment Apply to each nostril 2 (two) times a day For 5 days prior to procedure (Patient taking differently: Apply 1 Application to each nostril 2 (two) times a day For 5 days prior to procedure) 22 g 0 01/19/2024 pen needle, diabetic (BD Ultra-Fine Hailee Pen Needle) 32 gauge x 5/32 needle Use 4X daily 300 each 3 01/20/2024 calcium carbonate (TUMS) 500 mg (200 mg elemental calcium) chewable tablet Take 1 tablet/chew tab (500 mg total) by mouth daily (Patient taking differently: Take 1 tablet/chew tab (500 mg total) by mouth every morning) 90 tablet/chew tab 3 Unknown empagliflozin (Jardiance) 10 mg tablet Take 1 tablet (10 mg total) by mouth daily (Patient taking differently: Take 1 tablet (10 mg total) by mouth every morning Stopped for surgery) 90 tablet 3 01/13/2024 glucose 4 gram chewable tablet Take 1 tablet (4 g total) by mouth as needed for low blood sugar More than a month nitroglycerin (NITROSTAT) 0.[address] 1 tablet (0.4 mg total) under the tongue every 5 (five) minutes as needed for chest pain (Patient taking differently: Place 1 tablet (0.4 mg total) under the tongue every 5 (five) minutes as needed for chest pain Last used during stress test) 90 tablet 1 Unknown semaglutide (OZEMPIC) 2 mg/dose (8 mg/3 mL) pen injector injection Inject 2 mg under the skin once a week (Patient taking differently: Inject 2 mg under the skin once a week Saturday On hold for surgery) 9 mL 3 01/06/2024 Allergies Allergen Reactions Pseudoephedrine Palpitations Valacyclovir Other (See comments) put me in renal failure Social History Tobacco Use Smoking status: Never Smokeless tobacco: Never Substance and Sexual Activity Drug use: Never Sexual activity: Defer Alcohol Use: Not At Risk (01/20/2024) AUDIT-C Frequency of Alcohol Consumption: Never Average Number of Drinks: Patient does not drink Frequency of Binge Drinking: Never Family History Problem Relation Age of Onset [...] Hx Pseudochol deficiency Neg Hx Review of Systems: Review of systems not obtained due to: intubation Vitals: Most Recent : Vitals: 01/20/24 1640 BP: Pulse: 94 Resp: 21 Temp: SpO2: 100% Hemodynamics: MAP (mmHg): [63-76] 66 PAP: (36)/(21) 36/21 PAP (Mean): [26 mmHg] 26 mmHg CVP: [15 mmHg] 15 mmHg SVO2: [66 %] 66 % CO: [4.44 L/min] 4.44 L/min CI: [2.41 L/min/m2] 2.41 L/min/m2 Pulmonary Support: O2 Therapy: Supplemental oxygen O2 Del Method: Endotracheal tube FiO2 (%): 30 % FiO2 (%): 30 % Intake/Output: Intake/Output Summary (Last 24 hours) at 01/20/2024 1647 Last data filed at 01/20/2024 1628 Gross per 24 hour Intake 1600 ml Output 460 ml Net 1140 ml Objective Physical Exam: General: Intubated, sedated. Neuro: Spontaneously moving all extremities, opens eyes spontaneously. Cardiac: S1 and S2, Regular Rate and Rhythm, no M/G/R Pulmonary: AC/VC 14/400/30/5, respirations even/unlabored. Abdominal: Soft/Nontender/Nondistended, normoactive bowel sounds Extremities: No edema, Pulses Present and Palpable Drains: Bright in place, clear yellow output. KIRSTIE drains x2, serosanguinous. MCT x2, L PCT x1, serosanguinous. Wounds: Sternal incision with prevena in place. Lab/Radiology/Diagnostic Review: Laboratory review: Lab results in the last 12 hours: Recent Results (from the past 12 hour(s)) Prepare RBC: 4 Units Collection Time: 01/20/24 6:24 AM Result Value Ref Range Product code [id number] Unit Number [id number] Product Blood Type APOS Dispense Status RETURNED Product code C6756N05 Unit Number [id number] Product Blood Type APOS Dispense Status RETURNED Product code [id number] Unit Number [id number] Product Blood Type APOS Dispense Status RETURNED Product code [id number] Unit Number [id number] Product Blood Type APOS Dispense Status RETURNED POCT glucose Collection Time: 01/20/24 6:55 AM Result Value Ref Range Glucose, POC 147 70 - 199 mg/dL POC Blood Gas and Chemistries, Arterial - Collection Time: 01/20/24 9:33 AM Result Value Ref Range pH, Art POC 7.39 7.35 - 7.45 pCO2, Art POC 32 (L) 35 - 45 mmHg pO2, Art POC 342 (H) 83 - 108 mmHg Na, POC 141 135 - 145 mmol/L K POC 3.7 3.3 - 4.9 mmol/L Cl, POC 113 (H) 97 - 110 mmol/L Ionized Ca, POC 4.83 4.50 - 5.10 mg/dL Glucose, POC 146 70 - 199 mg/dL Lactate, POC 1.0 0.7 - 2.2 mmol/L SO2 (kristy) arterial 100 (H) 90 - 95 % Base excess, POC -4.8 mmol/L HCO3, Art POC 21 20 - 30 mmol/L Hct, POC 33.0 (L) 36.3 - 45.3 % Total Hb, POC 11.0 (L) 11.9 - 15.5 g/dL POC Blood Gas and Chemistries, Arterial - Collection Time: 01/20/24 11:46 AM Result Value Ref Range pH, Art POC 7.28 (L) 7.35 - 7.45 pCO2, Art POC 35 35 - 45 mmHg pO2, Art POC 310 (H) 83 - 108 mmHg Na, POC 142 135 - 145 mmol/L K POC 4.4 3.3 - 4.9 mmol/L Cl, POC 111 (H) 97 - 110 mmol/L Ionized Ca, POC 4.06 (L) 4.50 - 5.10 mg/dL Glucose, POC 183 70 - 199 mg/dL Lactate, POC 0.8 0.7 - 2.2 mmol/L SO2 (kristy) arterial 100 (H) 90 - 95 % Base excess, POC -9.5 mmol/L HCO3, Art POC 18 (L) 20 - 30 mmol/L Hct, POC 26.0 (L) 36.3 - 45.3 % Total Hb, POC 8.8 (L) 11.9 - 15.5 g/dL POC Blood Gas and Chemistries, Arterial - Collection Time: 01/20/24 12:16 PM Result Value Ref Range pH, Art POC 7.34 (L) 7.35 - 7.45 pCO2, Art POC 40 35 - 45 mmHg pO2, Art POC 252 (H) 83 - 108 mmHg Na, POC 143 135 - 145 mmol/L K POC 4.4 3.3 - 4.9 mmol/L Cl, POC 114 (H) 97 - 110 mmol/L Ionized Ca, POC 4.52 4.50 - 5.10 mg/dL Glucose, POC 199 70 - 199 mg/dL Lactate, POC 0.9 0.7 - 2.2 mmol/L SO2 (kristy) arterial 100 (H) 90 - 95 % Base excess, POC -3.9 mmol/L HCO3, Art POC 22 20 - 30 mmol/L Hct, POC 26.0 (L) 36.3 - 45.3 % Total Hb, POC 8.5 (L) 11.9 - 15.5 g/dL POC Blood Gas and Chemistries, Arterial - Collection Time: 01/20/24 12:50 PM Result Value Ref Range pH, Art POC 7.29 (L) 7.35 - 7.45 pCO2, Art POC 43 35 - 45 mmHg pO2, Art POC 232 (H) 83 - 108 mmHg Na, POC 143 135 - 145 mmol/L K POC 4.5 3.3 - 4.9 mmol/L Cl, POC 115 (H) 97 - 110 mmol/L Ionized Ca, POC 4.80 4.50 - 5.10 mg/dL Glucose, POC 183 70 - 199 mg/dL Lactate, POC 1.2 0.7 - 2.2 mmol/L SO2 (kristy) arterial 99 (H) 90 - 95 % Base excess, POC -5.5 mmol/L HCO3, Art POC 21 20 - 30 mmol/L Hct, POC 26.0 (L) 36.3 - 45.3 % Total Hb, POC 8.5 (L) 11.9 - 15.5 g/dL POC Blood Gas and Chemistries, Arterial - Collection Time: 01/20/24 1:15 PM Result Value Ref Range pH, Art POC 7.40 7.35 - 7.45 pCO2, Art POC 31 (L) 35 - 45 mmHg pO2, Art POC 207 (H) 83 - 108 mmHg Na, POC 143 135 - 145 mmol/L K POC 4.7 3.3 - 4.9 mmol/L Cl, POC 116 (H) 97 - 110 mmol/L Ionized Ca, POC 4.68 4.50 - 5.10 mg/dL Glucose, POC 184 70 - 199 mg/dL Lactate, POC 1.3 0.7 - 2.2 mmol/L SO2 (kristy) arterial 99 (H) 90 - 95 % Base excess, POC -4.9 mmol/L HCO3, Art POC 19 (L) 20 - 30 mmol/L Hct, POC 25.0 (L) 36.3 - 45.3 % Total Hb, POC 8.4 (L) 11.9 - 15.5 g/dL POC Blood Gas and Chemistries, Arterial - Collection Time: 01/20/24 1:44 PM Result Value Ref Range pH, Art POC 7.41 7.35 - 7.45 pCO2, Art POC 34 (L) 35 - 45 mmHg pO2, Art POC 249 (H) 83 - 108 mmHg Na, POC 144 135 - 145 mmol/L K POC 4.6 3.3 - 4.9 mmol/L Cl, POC 116 (H) 97 - 110 mmol/L Ionized Ca, POC 4.58 4.50 - 5.10 mg/dL Glucose, POC 169 70 - 199 mg/dL Lactate, POC 1.4 0.7 - 2.2 mmol/L SO2 (kristy) arterial 99 (H) 90 - 95 % Base excess, POC -2.7 mmol/L HCO3, Art POC 22 20 - 30 mmol/L Hct, POC 24.0 (L) 36.3 - 45.3 % Total Hb, POC 7.9 (L) 11.9 - 15.5 g/dL POCT hemoglobin, hematocrit and platelet count Collection Time: 01/20/24 2:13 PM Result Value Ref Range Hgb, POC 8.0 (L) 11.9 - 15.5 g/dL Hematocrit POC 24.1 (L) 35.6 - 45.5 % Platelet POC 102 (L) 150 - 400 K/cumm POCT Partial thromboplastin time (PTT) Collection Time: 01/20/24 2:15 PM Result Value Ref Range APTT, POC 22.2 (L) 32.5 - 46.1 sec POCT prothrombin time Collection Time: 01/20/24 2:16 PM Result Value Ref Range PT, POC 29.6 (H) 11.7 - 16.6 sec INR, POC 2.3 (H) 0.9 - 1.3 POC Blood Gas and Chemistries, Arterial - Collection Time: 01/20/24 2:17 PM Result Value Ref Range pH, Art POC 7.36 7.35 - 7.45 pCO2, Art POC 37 35 - 45 mmHg pO2, Art POC 282 (H) 83 - 108 mmHg Na, POC 145 135 - 145 mmol/L K POC 4.0 3.3 - 4.9 mmol/L Cl, POC 117 (H) 97 - 110 mmol/L Ionized Ca, POC 5.75 (H) 4.50 - 5.10 mg/dL Glucose, POC 164 70 - 199 mg/dL Lactate, POC 1.4 0.7 - 2.2 mmol/L SO2 (kristy) arterial 100 (H) 90 - 95 % Base excess, POC -4.2 mmol/L HCO3, Art POC 22 20 - 30 mmol/L Hct, POC 18.0 (L) 36.3 - 45.3 % Total Hb, POC 6.0 (L) 11.9 - 15.5 g/dL POCT hemoglobin, hematocrit and platelet count Collection Time: 01/20/24 2:56 PM Result Value Ref Range Hgb, POC 8.1 (L) 11.9 - 15.5 g/dL Hematocrit POC 24.5 (L) 35.6 - 45.5 % Platelet POC 122 (L) 150 - 400 K/cumm POC Blood Gas and Chemistries, Arterial - Collection Time: 01/20/24 4:43 PM Result Value Ref Range pH, Art POC 7.40 7.35 - 7.45 pCO2, Art POC 33 (L) 35 - 45 mmHg pO2, Art POC 116 (H) 83 - 108 mmHg Na, POC 145 135 - 145 mmol/L K POC 3.6 3.3 - 4.9 mmol/L Cl, POC 118 (H) 97 - 110 mmol/L Ionized Ca, POC 5.08 4.50 - 5.10 mg/dL Glucose, POC 104 70 - 199 mg/dL Lactate, POC 1.0 0.7 - 2.2 mmol/L SO2 (kristy) arterial 100 (H) 90 - 95 % Base excess, POC -3.8 mmol/L HCO3, Art POC 20 20 - 30 mmol/L Hct, POC 27.0 (L) 36.3 - 45.3 % Total Hb, POC 9.1 (L) 11.9 - 15.5 g/dL Recent Results (from the past 48 hour(s)) Prepare RBC: 4 Units Collection Time: 01/20/24 6:24 AM Result Value Ref Range Product code [id number] Unit Number [id number] Product Blood Type APOS Dispense Status RETURNED Product code [id number] Unit Number [id number] Product Blood Type APOS Dispense Status RETURNED Product code [id number] Unit Number [id number] Product Blood Type APOS Dispense Status RETURNED Product code [id number] Unit Number [id number] Product Blood Type APOS Dispense Status RETURNED POCT glucose Collection Time: 01/20/24 6:55 AM Result Value Ref Range Glucose, POC 147 70 - 199 mg/dL POC Blood Gas and Chemistries, Arterial - Collection Time: 01/20/24 9:33 AM Result Value Ref Range pH, Art POC 7.39 7.35 - 7.45 pCO2, Art POC 32 (L) 35 - 45 mmHg pO2, Art POC 342 (H) 83 - 108 mmHg Na, POC 141 135 - 145 mmol/L K POC 3.7 3.3 - 4.9 mmol/L Cl, POC 113 (H) 97 - 110 mmol/L Ionized Ca, POC 4.83 4.50 - 5.10 mg/dL Glucose, POC 146 70 - 199 mg/dL Lactate, POC 1.0 0.7 - 2.2 mmol/L SO2 (kristy) arterial 100 (H) 90 - 95 % Base excess, POC -4.8 mmol/L HCO3, Art POC 21 20 - 30 mmol/L Hct, POC 33.0 (L) 36.3 - 45.3 % Total Hb, POC 11.0 (L) 11.9 - 15.5 g/dL POC Blood Gas and Chemistries, Arterial - Collection Time: 01/20/24 11:46 AM Result Value Ref Range pH, Art POC 7.28 (L) 7.35 - 7.45 pCO2, Art POC 35 35 - 45 mmHg pO2, Art POC 310 (H) 83 - 108 mmHg Na, POC 142 135 - 145 mmol/L K POC 4.4 3.3 - 4.9 mmol/L Cl, POC 111 (H) 97 - 110 mmol/L Ionized Ca, POC 4.06 (L) 4.50 - 5.10 mg/dL Glucose, POC 183 70 - 199 mg/dL Lactate, POC 0.8 0.7 - 2.2 mmol/L SO2 (kristy) arterial 100 (H) 90 - 95 % Base excess, POC -9.5 mmol/L HCO3, Art POC 18 (L) 20 - 30 mmol/L Hct, POC 26.0 (L) 36.3 - 45.3 % Total Hb, POC 8.8 (L) 11.9 - 15.5 g/dL POC Blood Gas and Chemistries, Arterial - Collection Time: 01/20/24 12:16 PM Result Value Ref Range pH, Art POC 7.34 (L) 7.35 - 7.45 pCO2, Art POC 40 35 - 45 mmHg pO2, Art POC 252 (H) 83 - 108 mmHg Na, POC 143 135 - 145 mmol/L K POC 4.4 3.3 - 4.9 mmol/L Cl, POC 114 (H) 97 - 110 mmol/L Ionized Ca, POC 4.52 4.50 - 5.10 mg/dL Glucose, POC 199 70 - 199 mg/dL Lactate, POC 0.9 0.7 - 2.2 mmol/L SO2 (kristy) arterial 100 (H) 90 - 95 % Base excess, POC -3.9 mmol/L HCO3, Art POC 22 20 - 30 mmol/L Hct, POC 26.0 (L) 36.3 - 45.3 % Total Hb, POC 8.5 (L) 11.9 - 15.5 g/dL POC Blood Gas and Chemistries, Arterial - Collection Time: 01/20/24 12:50 PM Result Value Ref Range pH, Art POC 7.29 (L) 7.35 - 7.45 pCO2, Art POC 43 35 - 45 mmHg pO2, Art POC 232 (H) 83 - 108 mmHg Na, POC 143 135 - 145 mmol/L K POC 4.5 3.3 - 4.9 mmol/L Cl, POC 115 (H) 97 - 110 mmol/L Ionized Ca, POC 4.80 4.50 - 5.10 mg/dL Glucose, POC 183 70 - 199 mg/dL Lactate, POC 1.2 0.7 - 2.2 mmol/L SO2 (kristy) arterial 99 (H) 90 - 95 % Base excess, POC -5.5 mmol/L HCO3, Art POC 21 20 - 30 mmol/L Hct, POC 26.0 (L) 36.3 - 45.3 % Total Hb, POC 8.5 (L) 11.9 - 15.5 g/dL POC Blood Gas and Chemistries, Arterial - Collection Time: 01/20/24 1:15 PM Result Value Ref Range pH, Art POC 7.40 7.35 - 7.45 pCO2, Art POC 31 (L) 35 - 45 mmHg pO2, Art POC 207 (H) 83 - 108 mmHg Na, POC 143 135 - 145 mmol/L K POC 4.7 3.3 - 4.9 mmol/L Cl, POC 116 (H) 97 - 110 mmol/L Ionized Ca, POC 4.68 4.50 - 5.10 mg/dL Glucose, POC 184 70 - 199 mg/dL Lactate, POC 1.3 0.7 - 2.2 mmol/L SO2 (kristy) arterial 99 (H) 90 - 95 % Base excess, POC -4.9 mmol/L HCO3, Art POC 19 (L) 20 - 30 mmol/L Hct, POC 25.0 (L) 36.3 - 45.3 % Total Hb, POC 8.4 (L) 11.9 - 15.5 g/dL POC Blood Gas and Chemistries, Arterial - Collection Time: 01/20/24 1:44 PM Result Value Ref Range pH, Art POC 7.41 7.35 - 7.45 pCO2, Art POC 34 (L) 35 - 45 mmHg pO2, Art POC 249 (H) 83 - 108 mmHg Na, POC 144 135 - 145 mmol/L K POC 4.6 3.3 - 4.9 mmol/L Cl, POC 116 (H) 97 - 110 mmol/L Ionized Ca, POC 4.58 4.50 - 5.10 mg/dL Glucose, POC 169 70 - 199 mg/dL Lactate, POC 1.4 0.7 - 2.2 mmol/L SO2 (kristy) arterial 99 (H) 90 - 95 % Base excess, POC -2.7 mmol/L HCO3, Art POC 22 20 - 30 mmol/L Hct, POC 24.0 (L) 36.3 - 45.3 % Total Hb, POC 7.9 (L) 11.9 - 15.5 g/dL POCT hemoglobin, hematocrit and platelet count Collection Time: 01/20/24 2:13 PM Result Value Ref Range Hgb, POC 8.0 (L) 11.9 - 15.5 g/dL Hematocrit POC 24.1 (L) 35.6 - 45.5 % Platelet POC 102 (L) 150 - 400 K/cumm POCT Partial thromboplastin time (PTT) Collection Time: 01/20/24 2:15 PM Result Value Ref Range APTT, POC 22.2 (L) 32.5 - 46.1 sec POCT prothrombin time Collection Time: 01/20/24 2:16 PM Result Value Ref Range PT, POC 29.6 (H) 11.7 - 16.6 sec INR, POC 2.3 (H) 0.9 - 1.3 POC Blood Gas and Chemistries, Arterial - Collection Time: 01/20/24 2:17 PM Result Value Ref Range pH, Art POC 7.36 7.35 - 7.45 pCO2, Art POC 37 35 - 45 mmHg pO2, Art POC 282 (H) 83 - 108 mmHg Na, POC 145 135 - 145 mmol/L K POC 4.0 3.3 - 4.9 mmol/L Cl, POC 117 (H) 97 - 110 mmol/L Ionized Ca, POC 5.75 (H) 4.50 - 5.10 mg/dL Glucose, POC 164 70 - 199 mg/dL Lactate, POC 1.4 0.7 - 2.2 mmol/L SO2 (kristy) arterial 100 (H) 90 - 95 % Base excess, POC -4.2 mmol/L HCO3, Art POC 22 20 - 30 mmol/L Hct, POC 18.0 (L) 36.3 - 45.3 % Total Hb, POC 6.0 (L) 11.9 - 15.5 g/dL POCT hemoglobin, hematocrit and platelet count Collection Time: 01/20/24 2:56 PM Result Value Ref Range Hgb, POC 8.1 (L) 11.9 - 15.5 g/dL Hematocrit POC 24.5 (L) 35.6 - 45.5 % Platelet POC 122 (L) 150 - 400 K/cumm POC Blood Gas and Chemistries, Arterial - Collection Time: 01/20/24 4:43 PM Result Value Ref Range pH, Art POC 7.40 7.35 - 7.45 pCO2, Art POC 33 (L) 35 - 45 mmHg pO2, Art POC 116 (H) 83 - 108 mmHg Na, POC 145 135 - 145 mmol/L K POC 3.6 3.3 - 4.9 mmol/L Cl, POC 118 (H) 97 - 110 mmol/L Ionized Ca, POC 5.08 4.50 - 5.10 mg/dL Glucose, POC 104 70 - 199 mg/dL Lactate, POC 1.0 0.7 - 2.2 mmol/L SO2 (kristy) arterial 100 (H) 90 - 95 % Base excess, POC -3.8 mmol/L HCO3, Art POC 20 20 - 30 mmol/L Hct, POC 27.0 (L) 36.3 - 45.3 % Total Hb, POC 9.1 (L) 11.9 - 15.5 g/dL XR Chest 1 View Result Date: 01/20/2024 The chest is open. Right-sided pulmonary artery catheter is in place with tip terminating in the proximal right main pulmonary artery. Left atrial appendage clip in place. An endotracheal tube is approximately 1 centimeters above the balaji. Left-sided thoracostomy tube and right pericardial drain are in place. No retained surgical needle or other surgical instrument is seen. There are small lungvolumes, as a consequence there is both vascular crowding and atelectasis. No definite pleural effusion. Small right-sided lateral pneumothorax. No left-sided pneumothorax. Cardiomediastinal silhouette is stable. Dictated by: Kaushik Valentin M.D. The radiology attending physician has personally reviewed this study, and had reviewed and/or edited this written report and agrees with it. Electronicallysigned by: Erica Mustafa M.D. Assessment /Plan Principal Problem: Coronary artery disease Active Problems: Coronary artery disease due to calcified coronary lesion CAD, multiple vessel Plan of Care: NEURO: #Acute Pain: - Tylenol scheduled - Oxycodone, dilaudid prn - Continue to reassess, pain goal < 4 #Agitation Requiring Sedation: - Propofol gtt - RASS goal 0 to -2 CV: #CAD #PVD #ACS: chronic - (01/16) s/p CABG x3 (AGOSTO>LAD, vein>OM, vein>PDA) TONY clip, and sternal plating with Dr. Treviño - Start asa daily - SBP goal 100-130 - Okay to extubate - Erin-op vanc and ancef - KIRSTIE drains x2 (one to right thigh, one to left thigh), MCT x2, Left PCT x1 - Monitor drain output q4h - Daily CXR while chest tubes are in - CTS primary #HTN #HLD: chronic - Home Regimen: amlodipine, furosemide, atorvastatin - Holding antihypertensives in the setting of hypotension - Continue home atorvastatin PULM: #Short Term Mechanical Ventilation: - (01/19) Intubated for OR - AC/VC 14/400/30/5 - F/u CXR - Plan to SBT shortly after arrival to ICU - VAP/PUD ppx - SpO2 goal > 92% GI: Diet: NPO, OGT to LIS. Bowel regimen: PUD PPx: Pepcid ENDO: #Type II Diabetes Mellitus: chronic - Home Regimen: semaglutide - ICU SSI #Hypothyroidism: chronic - Continue home synthroid RENAL: - Bright in place - Strict I&O's - Trend BMP - Renally dose medications, avoid nephrotoxins Lab Results Component Value Date CREATININE 1.05 01/17/2024 HEME: DVT Ppx: Holding #ABLA: - No s/s bleeding, transfuse for Hgb < 7 or other clinical indication, continue to monitor CBC Lab Results Component Value Date HGB 9.1 (L) 01/20/2024 ID: - Currently afebrile - Continue to trend fever curve, monitor CBC - Antibiotics and cultures as below Lab Results Component Value Date WBC 8.5 01/17/2024 Antibiotics: Ancef (01/19) Vancomycin (01/19) Cultures: N/a Intensive Care Unit Standards of Care: Restraints: Not Indicated DVT Prophylaxis: Holding Vascular Access: R fem a-line (01/19), R IJ Cordis/Chen (01/19), PIVs Goals of Care: Full Code MILES Lockett, PA-C Critical Care Performed by: Cinthia Stokes PA Authorized by: Cinthia Stokes PA CRITICAL CARE: Team: 83 CTICU Shift: AM Level of Billing: Critical Care My time spent with this patient was 60 minutes: Critical Provider Statement: I have seen and examined the patient on this day of service. I have reviewed and confirmed the history, physical exam, laboratory and radiologic data as documented in thesigned ICU note. I have reviewed and discussed my treatment plan with the ICU team and other medical/employment consultant staff, making frequent assessments and decisions regarding this patient's complex medical care. Critical Care time was exclusive of time spent performing separately billed procedures, treating other patients, and teaching. This time was in addition to and separate from critical care provided by other practitioners in my group on this day of service. Critical Care was necessary to treat or prevent imminent or life-threatening deterioration of the following conditions: I spent time reviewing and interpreting data from bedside monitors, laboratory results, and imaging, I spent time discussing the management of this critically ill patient with consultants and the medical staff and I spent time documenting in the medical record Cosigned by Judson Rodríguez MD at 02/02/2024 12:52 PM CDT * Stan Treviño MD - 01/20/2024 7:50 AM CDT I have reviewed the H&P, examined the patient, and endorse the findings as written. Plan of Care : Based on the above findings, I consider Isabelle Lutz to be an acceptable risk for: Procedure(s): 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 x3 AGOSTO VEIN 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 Source Note - Wayne Morales NP - 01/17/2024 11:35 AM CDT Images from the original note were not included. [facility] Planning Preoperative Evaluation Record Evaluation type/location: [facility] Planned procedure site: [facility] ([facility]) Date: 01/17/24 Anesthesia Evaluation Isabelle Lutz is a 73 y.o. female 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 x3 AGOSTO VEIN (Chest) 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 (Thigh) Pre-Op Diagnosis Codes: * Coronary artery disease, unspecified vessel or lesion type, unspecified whether angina present, unspecified whether king salmon or transplanted heart [I25.10] HISTORY HPI 73 yo F underwent a stress echo on 11/14 for SOB and fullness in the neck. The test was abnormal. Shewas given nitro and admitted to the hospital. Trops were 22-25-20, pBNP >2000. No change in ECG (bifasicular block). Cath revealed severe multivessel coronary disease with chronic total occlusion of a large RCA, severe heavily calcified disease in the proximal circumflex, diffuse heavily calcified disease in the proximal LAD with a severe lesion in the mid to apical LAD (per cath is a sub-optimal target). Therefore she will be undergoing 3v CABG on pump. The patient's PMHx is also signficant for IDDM2 (A1c 5.9), CKD (CrCl 29.8). Past Medical History Information obtained from: patient and chart. Information obtained during: In Person Neurological Pertinent negatives: seizures; neuromuscular disease; CVA/stroke; TIA; CEA and carotid artery stent Cardiovascular + Hypertension ( more of a soft pressure ) + Hyperlipidemia + CAD (anginal equivalent - fullness in her neck) + CHF (11/15/23) - NYHA class: II. Diastolic function: stage I - impaired relaxation LVEF: 40-50%. + Current valvular disease (11/15/23) - MR - mild; + Other arrhythmia (RBBB + LAFB) Pertinent negatives: PA ; CABG ; systolic/diastolic dysfunction w/o CHF ; valve replacement; atrialfibrillation; pacemaker/ICD; PVD; DVT/PE; drug-eluting stent(s); bare metal stent(s) and unknown stent(s) type Comments: Dr. Kerns DARLIN 10/04/23. 11/2023 LHC: Severe multivessel coronary disease with chronic total occlusion of a large RCA, severeheavily calcified disease in the proximal circumflex, diffuse heavily calcified disease in the proximal LAD with a severe lesion in the mid to apical LAD. Respiratory Pertinent negatives: COPD; asthma; sleep apnea (LEÓN); pulmonary hypertension; no O2 use outside thehospital; non-smoker and no tracheostomy Hepatic / Heme + History of anemia (11/25/23 H/H 10.6/32.2) Pertinent negatives: liver disease and history of Sergio positive Gastrointestinal Pertinent negatives: GERD and hiatal hernia Renal / + Renal disease (CrCl 29.8) - CKD Pertinent negatives: dialysis and nephrolithiasis Musculoskeletal/Pain + Chronic pain (knees) + Osteoarthritis Endocrine / Other + Diabetes mellitus (Dexom. Managed by water maintenance supervisor.) - Diabetes type 2. Outpatient insulin use:current. Pt reported low glucose range is 110-130. Pt reported HgA1c: 5.9. Pt reported HgA1c date: 10/29/23. + Thyroid disease - hypothyroidism + Obesity (BMI >30)- morbid obesity (BMI>40). + Pancreatitis Pertinent negatives: cancer history; rheumatological disease; transplanted organ and infectious disease (denies s/s UTI) Comments: In the middle of the night the patient sometimes drops into the 50s- 60s and will take a glucose tablet. Drops a few times per week. Has been occurring for the past few months at least. Sx of hypoglycemia = shaky, nervous, stutters, dizzy. On insulin, Ozempic, Jardiance, and Metformin. Lantus was decreased from 50 to 46 then increased back to 50 after 4 days per patient. Functional Capacity Functional capacity: <4 METs Comments: Denies CP -- gets a fullness in her neck. Got some SOB when walking from tip length checker to CPAP. Starts with SOB then the fullness. Resolves with rest. Review of Systems + SOB (ROSE) + pedal edema (occasional, elevation helps. good today.) + dizziness (with hypoglycemia or quick position changes) + chronic pain (knees) Pertinent negatives: productive cough; wheezing; recent cold/flu; fever; chest pain; palpitations; orthopnea; PND; previous transfusion; easy bruising; bleeding problems; syncope; muscle weakness; numbness/tingling; vision loss; heartburn; nausea; dysphagia; diarrhea; dentures/partials; chipped/loose teeth; abdominal pain; diaphoresis and no unexpected weight change Comments: Last nitro 11/15/23 with stress test PAT Summary and Plans Cardiac risk classification of planned procedure: cardiac surgery. Preoperative assessment status: complete. Initial preoperative evaluation discussed with: Luh Khan MD Additional comments: Isabelle Lutz is a 73 y.o. female who is being evaluated prior to undergoinga cardiac surgical procedure. Functional capacity is <4 METs (specifically: Denies CP -- gets a fullness in her neck. Got some SOB when walking from tip length checker to CPAP. Starts with SOB then the fullness. Resolves with rest.). Obstructive sleep apnea (LEÓN) screening status is STOP-Bang=4 suggesting moderate risk for LEÓN, bicarbonate value pending Blood bank needs for day of procedure: T&C 4 unit pRBCs Pending labs/tests include: CBC CMP T&S PT PTT Urinalysis flex CXR 11/15/23 Trop 22-25-20, pBNP >2000 The patient is on aspirin therapy and is scheduled for cardiac/vascular surgery where aspirin is routinely continued for periprocedural benefit. -->The patient is not on a BB. Message sent to surgeon's office. Preoperative evaluation performed by Aruna Land NP on 01/17/24 at 12:40 PM. . Follow up note Labs and Chest Xray reviewed and are without significant findings. Surgeon's office reviews laboratory results independently, including final results of surgeon ordered labs. CPAP process complete. Follow-up completed by: Wayne Morales NP on 01/17/24 at 4:18 PM Patient Active Problem List Diagnosis Date Noted Coronary artery disease 12/18/2023 Coronary artery disease involving king salmon heart 12/12/2023 Encounter for preprocedural cardiovascular examination 12/12/2023 ROSE (dyspnea on exertion) 11/19/2023 Stable angina (HCC) 11/16/2023 Hyperphosphatemia 11/15/2023 Abnormal stress echocardiogram 11/15/2023 Congestive heart failure (CMS/HCC) (HCC) 11/12/2023 Age-related osteoporosis without current pathological fracture 04/29/2023 Chronic kidney disease (CKD) stage G3b/A1, moderately decreased glomerular filtration rate (GFR) between 30-44 mL/min/1.73 square meter and albuminuria creatinine ratio less than 30 mg/g ([facility]) 12/25/2021 Vitamin D deficiency 04/01/2019 Clavicle enlargement 06/16/2018 Primary open angle glaucoma (POAG) of both eyes, moderate stage 06/11/2018 Pseudophakia of both eyes 06/11/2018 Benign essential hypertension 02/10/2018 Trigger finger of left thumb 12/09/2017 Type 2 diabetes mellitus with hyperlipidemia (HCC) 12/07/2016 Knee pain 01/04/2015 Hypothyroidism 11/13/2014 Actinic keratosis 07/17/2012 Osteoarthritis of knee 12/16/2007 Hyperlipidemia 07/21/2006 Obesity 07/21/2006 Hypertension 02/19/2006 Past Medical History: Diagnosis Date Cataract CHF (congestive heart failure) (CMS/HCC) (HCC) Coronary artery disease Diabetes mellitus (HCC) Diabetic retinopathy (HCC) Glaucoma Hypertension Multiparity History Of ___ Previous Pregnancies - 7 pregnancies, 2 children - C-sections. (Added by [place] Conv) Nonproliferative diabetic retinopathy (HCC) 11/03/2009 Personal history of other specified conditions History of chest pain - Stress test negative on 08/01/06 (Added by TW Conv) Thyroid disease Past Surgical History: Procedure Laterality Date CATARACT EXTRACTION Right 06/14/2022 CE/IOL + goniotomy [place] APPENDECTOMY unkown dates per pt [place] DELIVERY ONLY Section - in 1972 and 1975 (Added by [place] Conv) [place] TENDON SHEATH INCISION Hand Incision Tendon Sheath Of A Finger - right hand, III finger, 08/20 (Added by [place] Conv) OB History No obstetric history on file. Allergies Allergen Reactions Pseudoephedrine Palpitations Valacyclovir Other (See comments) put me in renal failure Med List Status: Nurse Complete Set By: Mellisa Abreu RN at 01/17/2024 11:26 AM Taking? Last Dose Start Date End Date Provider acetaminophen ER (TYLENOL) 650 mg 8 hr tablet 01/17/2024 -- -- Aldair Prescott MD aspirin 81 mg enteric coated tablet 01/17/2024 -- -- Aldair Prescott MD atorvastatin (LIPITOR) 40 mg tablet 01/17/2024 10/29/23 10/28/24 Lia Mariano NP Take 1 tablet (40 mg total) by mouth daily Patient taking differently: Take 1 tablet (40 mg total) by mouth every morning blood glucose diagnostic (glucose blood) strip -- 10/16/18 -- Merna Bell MD Testing once daily brimonidine-timoloL (Combigan) 0.2-0.5 % ophthalmic solution 01/16/2024 02/11/23 -- Makayla Ramos MD Administer 1 drop into the left eye 2 (two) times a day Patient taking differently: Administer 1 drop into the left eye 2 (two) times a day Notes: 90 day supply OK calcium carbonate (TUMS) 500 mg (200 mg elemental calcium) chewable tablet Past Week 11/17/23 11/16/24 Arleth Carey MD Take 1 tablet/chew tab (500 mg total) by mouth daily Patient taking differently: Take 1 tablet/chew tab (500 mg total) by mouth every morning chlorhexidine (HIBICLENS) 4 % external liquid 01/16/2024 12/19/23 -- Columba Leslie NP Apply topically daily as needed for wound care For 5 days prior to procedure Patient taking differently: Apply 1 Application topically daily For 5 days prior to procedure chlorhexidine (PERIDEX) 0.12 % solution 01/17/2024 12/19/23 -- Columba Leslie NP Apply 15 mL to the mouth or throat 2 (two) times a day Patient taking differently: Apply 15 mL to the mouth or throat 3 (three) times a day Notes: For 5 days prior to procedure empagliflozin (Jardiance) 10 mg tablet Past Week 12/03/22 -- Merna Bell MD Take 1 tablet (10 mg total) by mouth daily Patient taking differently: Take 1 tablet (10 mg total) by mouth every morning Stopped for surgery ergocalciferol (VITAMIN D) 50,000 unit capsule Past Week 08/26/23 -- Merna Bell MD TAKE 1 CAPSULE BY MOUTH ONCE WEEKLY Patient taking differently: Take 1 capsule (50,000 Units total) by mouth once a week Saturday furosemide (LASIX ORAL) 01/17/2024 -- -- ProviderAldair MD glucose 4 gram chewable tablet Past Week -- -- ProviderAldair MD insulin aspart (NovoLOG) 100 unit/mL (3 mL) pen for injection Not Taking 08/20/23 08/19/24 Menra Bell MD Inject 12 Units under the skin 3 (three) times a day Patient not taking: Reported on 01/17/2024 insulin glargine (BASAGLAR) 100 unit/mL (3 mL) pen for injection 01/16/2024 12/03/22 01/17/24 Merna Bell MD Inject 50 Units under the skin daily before breakfast Patient taking differently: Inject 50 Units under the skin every morning insulin lispro (HumaLOG, ADMELOG) 100 unit/mL vial for injection 01/16/2024 -- -- Aldair Prescott MD latanoprost (XALATAN) 0.005 % ophthalmic solution 01/16/2024 11/11/23 -- Makayla Ramos MD INSTILL 1 DROP INTO BOTH EYES NIGHTLY Patient taking differently: Administer 1 drop into both eyes nightly Notes: day supply is OK with 3 refills if authorized by insurance and patient prefers. levothyroxine (SYNTHROID) 88 mcg tablet 01/17/2024 04/12/23 -- Merna Bell MD TAKE 1 TABLET BY MOUTH EVERY DAY Patient taking differently: Take 1 tablet (88 mcg total) by mouth every morning metFORMIN (GLUCOPHAGE) 500 mg tablet 01/17/2024 12/03/22 -- Merna Bell MD Take 1 tablet (500 mg total) by mouth daily Patient taking differently: Take 1 tablet (500 mg total) by mouth every morning mupirocin (BACTROBAN) 2 % ointment 01/16/2024 12/19/23 -- Columba Leslie NP Apply to each nostril 2 (two) times a day For 5 days prior to procedure Patient taking differently: Apply 1 Application to each nostril 2 (two) times a day For 5 days prior to procedure nitroglycerin (NITROSTAT) 0.4 mg SL tablet More than a month 11/19/23 11/18/[address] 1 tablet (0.4 mg total) under the tongue every 5 (five) minutes as needed for chest pain Patient taking differently: Place 1 tablet (0.4 mg total) under the tongue every 5 (five) minutes as needed for chest pain Last used during stress test pen needle, diabetic (BD Ultra-Fine Hailee Pen Needle) 32 gauge x 5/32 needle -- 12/03/22 -- Merna Bell MD Use 4X daily semaglutide (OZEMPIC) 2 mg/dose (8 mg/3 mL) pen injector injection 01/08/2024 10/29/23 -- Lia Mariano NP Inject 2 mg under the skin once a week Patient taking differently: Inject 2 mg under the skin once a week Saturday On hold for surgery -- Current Outpatient Medications: acetaminophen ER (TYLENOL) 650 mg 8 hr tablet aspirin 81 mg enteric coated tablet atorvastatin (LIPITOR) 40 mg tablet brimonidine-timoloL (Combigan) 0.2-0.5 % ophthalmic solution calcium carbonate (TUMS) 500 mg (200 mg elemental calcium) chewable tablet chlorhexidine (HIBICLENS) 4 % external liquid chlorhexidine (PERIDEX) 0.12 % solution empagliflozin (Jardiance) 10 mg tablet ergocalciferol (VITAMIN D) 50,000 unit capsule furosemide (LASIX ORAL) glucose 4 gram chewable tablet insulin glargine (BASAGLAR) 100 unit/mL (3 mL) pen for injection insulin lispro (HumaLOG, ADMELOG) 100 unit/mL vial for injection latanoprost (XALATAN) 0.005 % ophthalmic solution levothyroxine (SYNTHROID) 88 mcg tablet metFORMIN (GLUCOPHAGE) 500 mg tablet mupirocin (BACTROBAN) 2 % ointment semaglutide (OZEMPIC) 2 mg/dose (8 mg/3 mL) pen injector injection blood glucose diagnostic (glucose blood) strip insulin aspart (NovoLOG) 100 unit/mL (3 mL) pen for injection nitroglycerin (NITROSTAT) 0.4 mg SL tablet pen needle, diabetic (BD Ultra-Fine Hailee Pen Needle) 32 gauge x 5/32 needle Social History Tobacco Use Smoking Status Never Smokeless Tobacco Never Alcohol Use: Not At Risk (01/17/2024) AUDIT-C Frequency of Alcohol Consumption: Never Average Number of Drinks: Patient does not drink Frequency of Binge Drinking: Never Substance and Sexual Activity Drug Use Never Family History Problem Relation Age of Onset Heart disease Other Heart Disease - mother (Added by TW Conv) Hypertension Other Hypertension - mother (Added by TW Conv) Thyroid disease Other Thyroid Disorder - mother (Added by TW Conv) Diabetes type II Other Type II Diabetes Mellitus - mother (Added by TW Conv) Anesthesia problems Neg Hx PAT Physical Exam Airway Exam: Mallampati: III Cervical ROM: FROM TM distance: normal Upper lip bite test class: 2 Inter-incisor gap (cm): 3 Cardiovascular Exam: Rate: regular Rhythm: regular Negative for Murmur No extra heart sounds appreciated Negative for peripheral edema JVD negative Pulmonary Exam: LCTA, bilat (Able to lie flat) EENT Exam: trachea midline Dental Exam: Appears intact Skin Exam: Skin is dry and warm. Capillary refill is < 3 seconds. Turgor is normal. Abdominal exam: Abdomen is soft. Bowel sounds are present. Current state: Patient's current state is cooperative and interactive. Vitals: 01/17/24 1130 01/17/24 1134 BP: 125/61 123/62 Pulse: 73 Resp: 16 SpO2: 96% Relevant diagnostics: ECG(s): 01/17/24 SR w/ occ PVCs 78 bpm Bifasicular block 11/15/23 Stress Echo ECG Baseline HR: 77 Baseline BP: 115/57 Conduction Defects: RBBB + LAFB Resting ECG Comments: Synus Rhythm Echocardiogram(s): Stress Echo Pharm - 11/15/23 Ejection Fraction: 45-50% LV Global Function: Mild [...] No MS/ mild MR; No TR; No [place]. Diastolic Function: Grade I (impaired relaxation) with nl est filling pressures.Unable to estimate PASP d/t inadequate TR jet. Stress test(s): N/A Cardiac catheterization(s): [facility] - 11/25/23 DIAGNOSTIC IMPRESSION: Severe multivessel coronary disease with chronic total occlusion of a large RCA, severe heavily calcified disease in the proximal circumflex, diffuse heavily calcified disease in the proximal LAD with a severe lesion in the mid to apical LAD Elevated left ventricular end diastolic blood pressure.. THERAPEUTIC RECOMMENDATIONS: The patient has diabetes mild LV dysfunction and heavily calcified diffuse coronary disease. Bypassshe had be a consideration although her LAD target is suboptimal. I think PCI is feasible but wouldbe high-risk intervention Aggressive risk factor modification and medical therapy for secondary prevention of coronary arterydisease. The case was reviewed and discussed with the referring physician and patient. PFT(s): 12/12/23 Vascular studies: US carotids - 12/12/23 CONCLUSIONS: 1. Normal bilateral internal carotid arteries, no evidence of plaque. 2. No evidence of hemodynamically significant stenosis in the common carotid artery bilaterally. 3. Normal, antegrade flow is noted in bilateral vertebral arteries. Other: Chest Xray 01/17/24 IMPRESSION: The current study is compared with the prior radiograph dated 06/17/[address] 12/12/2023. No pulmonary consolidation. No pleural effusion. No pneumothorax. Heart size is within normal limits. CT cap - 12/12/23 1. Few small bilateral pulmonary nodules measuring up to 5mm. Recommend comparison with prior imaging if available to establish stability. If not available and the patient is at high risk for lung cancer (i.e. smoker), consider follow up CT in 12 months per Fleischner criteria. 2. Suggestion of masslike thickening of the cecum at the ileocecal valve which is indeterminate. Could represent stool but consider further evaluation with colonoscopy if not recently performed. 3. 3 cm indeterminate right adrenal nodule. If no prior imaging is available to document stability, recommend further evaluation with adrenal protocol CT 4. Sternotomy measurements as above. PT: No results found for requested labs within last 30 days. INR: No results found for requested labs within last 30 days. APTT: No results found for requested labs within last 30 days. Hgb A1C: No results found for requested labs within last 30 days. CBC RBC: No results found for requested labs within last 30 days. RDW: No results found for requested labs within last 30 days. MCHC: No results found for requested labs within last 30 days. MCH: No results found for requested labs within last 30 days. MCV: No results found for requested labs within last 30 days. Hct: No results found for requested labs within last 30 days. Hgb: No results found for requested labs within last 30 days. WBC: No results found for requested labs within last 30 days. MPV: No results found for requested labs within last 30 days. Platelets: No results found for requested labs within last 30 days. RDW CV: No results found for requested labs within last 30 days. RDW Sd: No results found for requested labs within last 30 days. BMP Glucose: No results found for requested labs within last 30 days. Calcium: No results found for requested labs within last 30 days. Sodium: No results found for requested labs within last 30 days. Potassium: No results found for requested labs within last 30 days. CO2: No results found for requested labs within last 30 days. Chloride: No results found for requested labs within last 30 days. BUN: No results found for requested labs within last 30 days. Creatinine: No results found for requested labs within last 30 days. STOP-Bang Total Score: 4 Kathrin index score: 95 AD8 Dementia Score: 0 Short Blessed Total Score: 0 documented in this encounter Procedure Notes * Nii Garces NP - 01/23/2024 4:44 PM CDT CHEST TUBE REMOVAL 01/23/2024 4:44 PM Performed by: Nii Ray Palmejar, WHEELCHAIR VAN OPERATOR FIRST RESPONDER Dicussed with: [] Collaborating MD/Deanee [x] Attending MD [] Supervising Physician [] Emergent [] Non-Applicable Informed consent: Risks, benefits, alternatives discussed and patient/data entry representative/guardian agrees and accepts. Patient's stated name/ matches armband: Yes Imaging: Pertinent imaging reviewed, correctly oriented and match to patient identifiers Supplies, devices and special equipment are available: Yes Hand hygiene performed: Yes Chest tubes removed: [x] Left Pleural [] Left Pleural anterior [] Left Pleural posterior []Right Pleural [] Right Pleural anterior [] Right Pleural posterior [] Mediastinal x1 [] Mediastinal x 2 [] Left Pleuryx [] Right Pleuryx [] Left Pneumostat [] Right Pneumostat Removal Method: [x] Removed with Valsalva Maneuver [x] Sutures secured immediately after removal []Keeler sutures removed [] No sutures present Instruction to patient after removal: [x] Activity as tolerated [] Report shortness of breath [] Report excess drainage Patient verbalized understanding of these instructions. Occlusive dressing applied. Complications: [x] None [] Bleeding at removal site [] Shortness of breath Post procedure condition is stable. Post procedure follow up: [] portable chest x-ray ordered [x] 2 view AP & lateral Chest x-ray ordered Isabelle Lutz tolerated this procedure well. * Nii Garces NP - 01/22/2024 1:51 PM CDT CHEST TUBE REMOVAL 01/22/2024 1:51 PM Performed by: Nii Garces NP Dicussed with: [] Collaborating Natalio [x] Attending MD [] Supervising Physician [] Emergent [] Non-Applicable Informed consent: Risks, benefits, alternatives discussed and patient/data entry representative/guardian agrees and accepts. Patient's stated name/ matches armband: Yes Imaging: Pertinent imaging reviewed, correctly oriented and match to patient identifiers Supplies, devices and special equipment are available: Yes Hand hygiene performed: Yes Chest tubes removed: [] Left Pleural [] Left Pleural anterior [] Left Pleural posterior []Right Pleural [] Right Pleural anterior [] Right Pleural posterior [] Mediastinal x1 [x] Mediastinal x 2 [] Left Pleuryx [] Right Pleuryx [] Left Pneumostat [] Right Pneumostat Removal Method: [x] Removed with Valsalva Maneuver [] Sutures secured immediately after removal [] Keeler sutures removed [] No sutures present Instruction to patient after removal: [x] Activity as tolerated [x] Report shortness of breath [x] Report excess drainage Patient verbalized understanding of these instructions. Occlusive dressing applied. Complications: [x] None [] Bleeding at removal site [] Shortness of breath Post procedure condition is stable. Post procedure follow up: [x] portable chest x-ray ordered [] 2 view AP & lateral Chest x-ray ordered Isabelle Lutz tolerated this procedure well. documented in this encounter Consult Notes * Jennyfer Gaffney MD - 01/22/2024 12:38 PM CDT Endocrinology & Diabetes Consult Note Patient: Isabelle Lutz, 73 y.o. female (: 1950) Room: [place] [address]/[place] [address] ( ) LOS: 2 Consult Question: diabetes management (Requesting Provider: Stan Treviño MD) Isabelle Lutz is a 73 y.o. female with hypothyroidism, osteoporosis, CAD, PVD, CKD, HTN, HLD, T2DM, s/p CABG (01/19). Endocrinology consulted for diabetes management HPI Patient is doing well, no acute complaints. ---- Type of DM: type 2 diabetes mellitus Diagnosed 28 years ago Weight at diagnosis: 120-130 lb Heaviest weight: 150-160 lb Weight at age 17yo: 120-130 lb Last A1c:5.9%; reliability: CKD, anemia Managed by PMD or Glass Belt Sander Dr. Bell Hx of DKA/HHS/Hospitalizations for hypoglycemia: no Hx of pancreatitis/MEN/medullary thyroid CA: no Family History: mother with T1DM, brother, sister with T2DM Reports no recent changes in weight, polydipsia, polyuria, dysuria, abdominal pain, nausea or vomiting. Microvascular complications: Nephropathy; not present from diabetes (albumin/Cr not elevated), but does have Neuropathy; yes, present--decreased vibratory sensation Retinopathy; not present, yearly eye exam Macrovascular complications: Yes--CAD, PVD Episodes of hypoglycemia: 1-2x/week Hypoglycemia awareness: yes Glucose at home: dexcom g7 CGM, not currently wearing because taken off for surgery Previous DM meds tried, and reason for discontinued use: Metformin 500 BID previously Current Home DM regimen: Ozempic 2 mg Empagliflozin 10 mg 50 insulin glargine 10 insulin lispro Levothyroxine 88 mcg Metformin 500 mg daily Diet: Adult Diet Restricted; Low Fat, Low Chol; Consistent Carbohydrate Recent Labs Lab Units 01/22/24 1203 01/22/24 0729 01/22/24 0558 01/22/24 0242 01/22/24 0053 01/21/24 2036 01/21/24 1708 01/21/24 1142 01/21/24 0856 01/21/24 0356 GLUCOSE mg/dL -- -- 162 -- -- -- -- -- -- -- POC GLUCOSE MONITOR mg/dL 196 161 -- 165 167 232* 259* 228* 192 178 Lab Results Component Value Date HGBA1C 5.9 10/29/2023 PMH / PSH Past Medical History: Diagnosis Date Actinic keratosis 07/17/2012 Age-related osteoporosis without current pathological fracture 04/29/2023 Cataract CHF (congestive heart failure) ([facility]/HCC) ([facility]) Clavicle enlargement 06/16/2018 Will image to determine etiology. Coronary artery disease Coronary artery disease due to calcified coronary lesion 01/20/2024 Diabetes mellitus ([facility]) Diabetic neuropathy ([facility]) 01/21/2024 Diabetic retinopathy ([facility]) Glaucoma Hypertension Hypothyroidism 11/13/2014 Knee pain 01/04/2015 Multiparity History Of ___ Previous Pregnancies - 7 pregnancies, 2 children - C-sections. (Added by [place] Conv) Nonproliferative diabetic retinopathy (HCC) 11/03/2009 Osteoarthritis of knee 12/16/2007 Personal history of other specified conditions History of chest pain - Stress test negative on 08/01/06 (Added by [place] Conv) Primary open angle glaucoma (POAG) of both eyes, moderate stage 06/11/2018 Pseudophakia of both eyes 06/11/2018 Thyroid disease Trigger finger of left thumb 12/09/2017 Type 2 diabetes mellitus with hyperlipidemia (HCC) 12/07/2016 Last A1C 5.9%, without complication Vitamin D deficiency 04/01/2019 Past Surgical History: Procedure Laterality Date CATARACT EXTRACTION Right 06/14/2022 CE/IOL + goniotomy [place] APPENDECTOMY unkown dates per pt [place] DELIVERY ONLY Section - in 1972 and 1975 (Added by TW Conv) [place] TENDON SHEATH INCISION Hand Incision Tendon Sheath Of A Finger - right hand, III finger, /10 (Added by TW Conv) Social & Family History Social History Tobacco Use Smoking status: Never Smokeless tobacco: Never Substance and Sexual Activity Drug use: Never Sexual activity: Defer Alcohol Use: Not At Risk (01/20/2024) AUDIT-C Frequency of Alcohol Consumption: Never Average Number of Drinks: Patient does not drink Frequency of Binge Drinking: Never Family History Problem Relation Age of Onset [...] Pseudochol deficiency Neg Hx Review of Systems ROS reviewed and negative except as noted in HPI. All other systems negative. Vitals & Physical Exam Physical Exam Temp Min: 36.3 ??C (97.4 ??F) Max: 36.8 ??C (98.2 ??F) Pulse Min: 83 Max: 111 BP Min: 102/43 Max: 132/55 Resp Min: 18 Max: 20 SpO2 Min: 90 % Max: 97 % Body mass index is 40.32 kg/m??. Weight: I/O this shift: In: - Out: 230 [Urine:150; Chest Tube:80] Physical Exam Gen : no acute distress, appears stated age HENT : NCAT, moist mucus membranes Eyes : conjunctiva clear, anicteric, no proptosis/exophthalmos/lid lag Pulm : non-labored. Chest tube present, draining CV : regular rate, no murmurs Abd : soft, non-tender, non-distended Extr : atraumatic, no LE edema Skin : no rashes, no striae, normal texture. Sternal wound Neuro : alert and oriented x3, no tremor, no proximal muscle weakness Data Medications, labs, imaging, and diagnostics independently reviewed in Epic and commented on below. Home Medications: HOME MEDICATIONS : acetaminophen ER (TYLENOL) 650 mg 8 hr tablet aspirin 81 mg enteric coated tablet atorvastatin (LIPITOR) 40 mg tablet blood glucose diagnostic (glucose blood) strip brimonidine-timoloL (Combigan) 0.2-0.5 % ophthalmic solution chlorhexidine (HIBICLENS) 4 % external liquid chlorhexidine (PERIDEX) 0.12 % solution ergocalciferol (VITAMIN D) 50,000 unit capsule furosemide (LASIX ORAL) insulin aspart (NovoLOG) 100 unit/mL (3 mL) pen for injection insulin glargine (BASAGLAR) 100 unit/mL (3 mL) pen for injection insulin lispro (HumaLOG, ADMELOG) 100 unit/mL vial for injection latanoprost (XALATAN) 0.005 % ophthalmic solution levothyroxine (SYNTHROID) 88 mcg tablet metFORMIN (GLUCOPHAGE) 500 mg tablet mupirocin (BACTROBAN) 2 % ointment pen needle, diabetic (BD Ultra-Fine Hailee Pen Needle) 32 gauge x 5/32 needle calcium carbonate (TUMS) 500 mg (200 mg elemental calcium) chewable tablet empagliflozin (Jardiance) 10 mg tablet glucose 4 gram chewable tablet nitroglycerin (NITROSTAT) 0.4 mg SL tablet semaglutide (OZEMPIC) 2 mg/dose (8 mg/3 mL) pen injector injection Scheduled Meds PRN Meds Infusions acetaminophen, 1,000 mg, feeding tube, Q6H LAMONTE aspirin, 81 mg, oral, Daily atorvastatin, 40 mg, feeding tube, Daily chlorhexidine, 15 mL, mouth/throat, TID clopidogreL, 75 mg, oral, Daily docusate sodium, 100 mg, oral, BID Or docusate, 100 mg, feeding tube, BID insulin glargine, 32 Units, subcutaneous, Nightly insulin lispro, 0-10 Units, subcutaneous, TID with meals insulin lispro, 0-5 Units, subcutaneous, Nightly insulin lispro, 10 Units, subcutaneous, TID with meals levothyroxine, 88 mcg, feeding tube, Daily - 0600 lidocaine, 2 patch, transdermal, Q24H metoprolol tartrate, 6.25 mg, oral, BID polyethylene glycol, 17 g, oral, Daily senna, 1 tablet, oral, BID Or senna, 8.8 mg, feeding tube, BID dextrose, 15 g, Q15 Min PRN Or dextrose, 250 mL, Q15 Min PRN glucagon, 1 mg, Q30 Min PRN HYDROmorphone, 0.2 mg, Q2H PRN ondansetron, 4 mg, Q6H PRN oxyCODONE, 5 mg, Q4H PRN prochlorperazine, 5 mg, Q6H PRN Lab Results Component Value Date TSH 0.69 10/29/2023 FREET4 1.38 10/29/2023 Lab Results Component Value Date CHOL 158 10/29/2023 TRIG 88 01/20/2024 HDL 49 (L) 06/25/2022 LDLCALC 91 01/13/2021 LDLDIRECT 92 10/29/2023 Lab Results Component Value Date PTH 71 06/25/2022 25HYDROVITD 40 01/13/2021 Lab Results Component Value Date HGBA1C 5.9 10/29/2023 Lab Results Component Value Date WBC 14.0 (H) 01/22/2024 HGB 8.7 (L) 01/22/2024 HCT 26.9 (L) 01/22/2024 MCV 93.4 01/22/2024 LABPLAT 134 (L) 01/22/2024 Chemistry Lab Results Component Value Date SODIUM 139 01/22/2024 POTASSIUM 4.5 01/22/2024 CHLORIDE 106 01/22/2024 CO2 25 01/22/2024 ANIONGAP 8 01/22/2024 BUNSER 40 (H) 01/22/2024 CREATININE 1.53 (H) 01/22/2024 GLUCOSE 196 01/22/2024 CALCIUM 8.9 01/22/2024 BILITOT 0.6 01/17/2024 PROTEIN 7.5 06/17/2016 ALBUMIN 4.4 01/17/2024 GFRNAA 35 (L) 01/22/2024 GFRAA 62.3 03/31/2019 ALKPHOS 104 01/17/2024 AST 28 01/17/2024 ALT 23 01/17/2024 PHOS 2.8 01/22/2024 MAGNESIUM 2.3 01/22/2024 Assessment & Plan # Type 2 Diabetes Mellitus, Controlled, complicated by post op stress and steroid use Current HbA1c and reliability: 5.9%, CKD, anemia HbA1c goal based on comorbidities: <7 Diabetes Provider: Dr. Bell Insurance: Payor: MEDICARE / Plan: MEDICARE PART A & B / Product Type: MEDICARE TRADITIONAL / Home regimen: Ozempic 2 mg Empagliflozin 10 mg 50 insulin glargine 10 insulin lispro TID with meals Levothyroxine 88 mcg Metformin 500 mg daily Recommendations: Basal Insulin: - glargine 32 units qHS Mealtime/Bolus Insulin: - lispro 10 units TID AC Correctional/Sliding-Scale Insulin: - resistant correctional lispro TID AC, HS, 2 am - POC glucoses TID AC, HS, 2AM when eating - Consistent carb diet when eating; no juices, no regular soda - When NPO, continue glargine, hold mealtime lispro, change correctional (sliding scale) lispro andPOC glucoses to Q4hr - If he has severe hyperglycemia (>300), use the hyperglycemia urgency order set (make NPO, IV insulin, re-check in 1 hour) > The half-life of IV insulin is ~5 minutes; it's safer than giving multiple doses of subQ insulin (can last ~4 hours & builds up if given repeatedly). # HLD: - His diabetes and elevated cholesterol are indications for statin therapy. # HTN: - ACEi/ARB use in persons with both type 1 and type 2 diabetes can prevent the progression of renaldisease. # CKD Stage II #hypothyroidism -home synthroid #osteoporosis -home ca, Vit D #adrenal nodule -3 cm indeterminate right adrenal nodule noted on CT 11/2023. Consider adrenal protocol CT outpatient #thickening of cecum -3.1 x 2.8 mm masslike density in cecum. Recommend age appropriate colonoscopy ## Discharge Planning Use ???Adult END Diabetes Discharge?? Order Set - If the patient would like to be seen in the Diabetes Center, we will request an outpatient appointment. (Diabetes Center Scheduling: ) All recommendations preliminary until attending attestation. Jennyfer Gaffney MD Clinical Fellow Endocrinology, Metabolism, & Lipid Research Contact Info: New Consults: [phone]) General Endocrine (Non-Diabetes): [phone] (Check 'Treatment Team' assignment for Diabetes 1 vs 2 vs 3) Diabetes 1: Diabetes Fellow: [phone] Diabetes 2: Vanita Ware, WHEELCHAIR VAN OPERATOR FIRST RESPONDER: [phone] Diabetes 3: See Treatment Team Provider (or call Vanita Ware, above) Diabetes After-Hours & Weekends: Diabetes Fellow Cosigned by Cordell Roberts MD at 01/22/2024 6:05 PM CDT Associated attestation - Cordell Roberts MD - 01/22/2024 6:05 PM CDT I have seen and examined the patient on 01/22/2024. I agree with the findings and plan of care as documented in the resident's/fellow's note and as discussed with the resident/fellow including final discussion of hospital stay, patient education, instructions for continuing care, preparation of prescriptions, referrals, and forwarding of records, Any additions or modifications follow. There may also be a separate, additional electronic note on the date of discharge. Total duration of my time spent on the coordination of care and discharge process was 35 min. Daughter here. * Jennyfer Gaffney MD - 01/21/2024 4:42 PM CDTAssociated Order(s): CONSULT TO ENDOCRINOLOGY DIABETES Endocrinology & Diabetes Consult Note Patient: Isabelle Lutz, 73 y.o. female (: 1950) Room: [id number] ( ) LOS: 1 Consult Question: diabetes management (Requesting Provider: Stan Treviño MD) Isabelle Lutz is a 73 y.o. female with hypothyroidism, osteoporosis, CAD, PVD, CKD, HTN, HLD, T2DM, s/p CABG (01/19). Endocrinology consulted for diabetes management HPI Type of DM: type 2 diabetes mellitus Diagnosed 28 years ago Weight at diagnosis: 120-130 lb Heaviest weight: 150-160 lb Weight at age 17yo: 120-130 lb Last A1c:5.9%; reliability: CKD, anemia Managed by PMD or [employer] S[employer] Dr. Bell Hx of DKA/HHS/Hospitalizations for hypoglycemia: no Hx of pancreatitis/MEN/medullary thyroid CA: no Family History: mother with T1DM, brother, sister with T2DM Reports no recent changes in weight, polydipsia, polyuria, dysuria, abdominal pain, nausea or vomiting. Microvascular complications: Nephropathy; not present from diabetes (albumin/Cr not elevated), but does have Neuropathy; yes, present--decreased vibratory sensation Retinopathy; not present, yearly eye exam Macrovascular complications: Yes--CAD, PVD Episodes of hypoglycemia: 1-2x/week Hypoglycemia awareness: yes Glucose at home: dexcom g7 CGM, not currently wearing because taken off for surgery Previous DM meds tried, and reason for discontinued use: Metformin 500 BID previously Current Home DM regimen: Ozempic 2 mg Empagliflozin 10 mg 50 insulin glargine 10 insulin lispro Levothyroxine 88 mcg Metformin 500 mg daily Diet: Adult Diet Restricted; Low Fat, Low Chol; Consistent Carbohydrate Recent Labs Lab Units 01/21/24 1142 01/21/24 0856 01/21/24 0356 01/21/24 0055 01/20/24 2035 01/20/24 1806 01/20/24 1652 01/20/24 1643 01/20/24 1417 01/20/24 1344 GLUCOSE mg/dL -- -- -- 193 -- -- 107 -- -- -- POC GLUCOSE MONITOR mg/dL 228* 192 178 -- 121 106 -- 104 164 169 Lab Results Component Value Date HGBA1C 5.9 10/29/2023 PMH / PSH Past Medical History: Diagnosis Date Cataract CHF (congestive heart failure) (CMS/HCC) (HCC) Coronary artery disease Coronary artery disease due to calcified coronary lesion 01/20/2024 Diabetes mellitus (HCC) Diabetic retinopathy (HCC) Glaucoma Hypertension Hypothyroidism 11/13/2014 Knee pain 01/04/2015 Multiparity History Of ___ Previous Pregnancies - [...] CATARACT EXTRACTION Right 06/14/2022 CE/IOL + goniotomy [place] unkown dates per pt [place] - in 1972 and 1975 (Added by TW Conv) [place] TEND[place] SHEATH INCISION Hand Incision Tendon Sheath [...] not drink Frequency of Binge Drinking: Never Family History Problem Relation Age of Onset [...] Pseudochol deficiency Neg Hx Review of Systems ROS reviewed and negative except as noted in HPI. All other systems negative. Vitals & Physical Exam Physical Exam Temp Min: 36.3 ??C (97.3 ??F) Max: 36.7 ??C (98 ??F) Pulse Min: 94 Max: 117 BP Min: 102/43 Max: 111/51 Resp Min: 17 Max: 29 SpO2 Min: 93 % Max: 100 % Body mass index is 40.32 kg/m??. Weight: I/O this shift: In: 856.5 [P.O.:690; I.V.:146.5; IV Piggyback:20] Out: 470 [Urine:135; Drains:25; Chest Tube:310] Physical Exam Gen : no acute distress, appears stated age HENT : NCAT, moist mucus membranes Eyes : conjunctiva clear, anicteric, no proptosis/exophthalmos/lid lag Pulm : non-labored. Chest tube present, draining CV : regular rate, no murmurs Abd : soft, non-tender, non-distended Extr : atraumatic, no LE edema Skin : no rashes, no striae, normal texture. Sternal wound Neuro : alert and oriented x3, no tremor, no proximal muscle weakness Data Medications, labs, imaging, and diagnostics independently reviewed in Epic and commented on below. Home Medications: HOME MEDICATIONS : acetaminophen ER (TYLENOL) 650 mg 8 hr tablet aspirin 81 mg enteric coated tablet atorvastatin (LIPITOR) 40 mg tablet blood glucose diagnostic (glucose blood) strip brimonidine-timoloL (Combigan) 0.2-0.5 % ophthalmic solution chlorhexidine (HIBICLENS) 4 % external liquid chlorhexidine (PERIDEX) 0.12 % solution ergocalciferol (VITAMIN D) 50,000 unit capsule furosemide (LASIX ORAL) insulin aspart (NovoLOG) 100 unit/mL (3 mL) pen for injection insulin glargine (BASAGLAR) 100 unit/mL (3 mL) pen for injection insulin lispro (HumaLOG, ADMELOG) 100 unit/mL vial for injection latanoprost (XALATAN) 0.005 % ophthalmic solution levothyroxine (SYNTHROID) 88 mcg tablet metFORMIN (GLUCOPHAGE) 500 mg tablet mupirocin (BACTROBAN) 2 % ointment pen needle, diabetic (BD Ultra-Fine Hailee Pen Needle) 32 gauge x 5/32 needle calcium carbonate (TUMS) 500 mg (200 mg elemental calcium) chewable tablet empagliflozin (Jardiance) 10 mg tablet glucose 4 gram chewable tablet nitroglycerin (NITROSTAT) 0.4 mg SL tablet semaglutide (OZEMPIC) 2 mg/dose (8 mg/3 mL) pen injector injection Scheduled Meds PRN Meds Infusions acetaminophen, 1,000 mg, feeding tube, Q6H LAMONTE aspirin, 81 mg, oral, Daily atorvastatin, 40 mg, feeding tube, Daily ceFAZolin, 2,000 mg, intravenous, Q8H chlorhexidine, 15 mL, mouth/throat, TID clopidogreL, 75 mg, oral, Daily docusate sodium, 100 mg, oral, BID Or docusate, 100 mg, feeding tube, BID insulin glargine, 0.15 Units/kg, subcutaneous, Nightly insulin lispro, 0-4 Units, subcutaneous, Nightly insulin lispro, 0-5 Units, subcutaneous, TID with meals insulin lispro, 0.05 Units/kg, subcutaneous, TID with meals levothyroxine, 88 mcg, feeding tube, Daily - 0600 polyethylene glycol, 17 g, oral, Daily senna, 1 tablet, oral, BID Or senna, 8.8 mg, feeding tube, BID dextrose, 15 g, Q15 Min PRN Or dextrose, 250 mL, Q15 Min PRN glucagon, 1 mg, Q30 Min PRN HYDROmorphone, 0.2 mg, Q2H PRN ondansetron, 4 mg, Q6H PRN oxyCODONE, 5 mg, Q4H PRN prochlorperazine, 5 mg, Q6H PRN Lab Results Component Value Date TSH 0.69 10/29/2023 FREET4 1.38 10/29/2023 Lab Results Component Value Date CHOL 158 10/29/2023 TRIG 88 01/20/2024 HDL 49 (L) 06/25/2022 LDLCALC 91 01/13/2021 LDLDIRECT 92 10/29/2023 Lab Results Component Value Date PTH 71 06/25/2022 25HYDROVITD 40 01/13/2021 Lab Results Component Value Date HGBA1C 5.9 10/29/2023 Lab Results Component Value Date WBC 8.9 01/21/2024 HGB 8.6 (L) 01/21/2024 HCT 26.4 (L) 01/21/2024 MCV 91.7 01/21/2024 LABPLAT 132 (L) 01/21/2024 Chemistry Lab Results Component Value Date SODIUM 146 (H) 01/21/2024 POTASSIUM 4.8 01/21/2024 CHLORIDE 114 (H) 01/21/2024 CO2 21 (L) 01/21/2024 ANIONGAP 11 01/21/2024 BUNSER 28 (H) 01/21/2024 CREATININE 0.99 01/21/2024 GLUCOSE 228 (H) 01/21/2024 CALCIUM 8.8 01/21/2024 BILITOT 0.6 01/17/2024 PROTEIN 7.5 06/17/2016 ALBUMIN 4.4 01/17/2024 GFRNAA 60 01/21/2024 GFRAA 62.3 03/31/2019 ALKPHOS 104 01/17/2024 AST 28 01/17/2024 ALT 23 01/17/2024 PHOS 4.1 01/21/2024 MAGNESIUM 2.3 01/21/2024 Assessment & Plan # Type 2 Diabetes Mellitus, Controlled, complicated by post op stress and steroid use Pt received 4 mg dexamethasone 9 am 01/19, does not appear to be getting more steroids. Dexamethasonelikely cleared from system by now, patient will likely benefit from 80% TDD of home insulin regimen. Current HbA1c and reliability: 5.9%, CKD, anemia HbA1c goal based on comorbidities: <7 Diabetes Provider: Dr. Bell Insurance: Payor: MEDICARE / Plan: MEDICARE PART A & B / Product Type: MEDICARE TRADITIONAL / Home regimen: Ozempic 2 mg Empagliflozin 10 mg 50 insulin glargine 10 insulin lispro TID with meals Levothyroxine 88 mcg Metformin 500 mg daily Recommendations: Basal Insulin: - glargine 32 units qHS Mealtime/Bolus Insulin: - lispro 10 units TID AC Correctional/Sliding-Scale Insulin: - resistant correctional lispro TID AC, HS, 2 am - POC glucoses TID AC, HS, 2AM when eating - Consistent carb diet when eating; no juices, no regular soda - When NPO, continue glargine, hold mealtime lispro, change correctional (sliding scale) lispro andPOC glucoses to Q4hr - If he has severe hyperglycemia (>300), use the hyperglycemia urgency order set (make NPO, IV insulin, re-check in 1 hour) > The half-life of IV insulin is ~5 minutes; it's safer than giving multiple doses of subQ insulin (can last ~4 hours & builds up if given repeatedly). # HLD: - His diabetes and elevated cholesterol are indications for statin therapy. # HTN: - ACEi/ARB use in persons with both type 1 and type 2 diabetes can prevent the progression of renaldisease. # CKD Stage II #hypothyroidism -home synthroid #osteoporosis -home ca, Vit D #adrenal nodule -3 cm indeterminate right adrenal nodule noted on CT 11/2023. Consider adrenal protocol CT outpatient #thickening of cecum -3.1 x 2.8 mm masslike density in cecum. Recommend age appropriate colonoscopy ## Discharge Planning Use ???Adult END Diabetes Discharge?? Order Set - If the patient would like to be seen in the Diabetes Center, we will request an outpatient appointment. ([facility] Scheduling: ) All recommendations preliminary until attending attestation. Jennyfer Gaffney MD Clinical Fellow Endocrinology, Metabolism, & Lipid Research Contact Info: New Consults: [phone]) General Endocrine (Non-Diabetes): [phone] (Check 'Treatment Team' assignment for Diabetes 1 vs 2 vs 3) Diabetes 1: Diabetes Fellow: [phone] Diabetes 2: Vanita Ware, WHEELCHAIR VAN OPERATOR FIRST RESPONDER: [phone] Diabetes 3: See Treatment Team Provider (or call Vanita Ware, above) Diabetes After-Hours & Weekends: Diabetes Fellow Cosigned by Cordell Roberts MD at 01/21/2024 8:19 PM CDT Associated attestation - Cordell Roberts MD - 01/21/2024 8:19 PM CDT I have seen and examined the patient on 01/21/2024. I agree with the findings and plan of care as documented in the resident's/fellow's note and as discussed with the resident/fellow. Any additions or modifications follow. There may also be a separate, additional electronic note. My total encountertime on 01/21/2024 was 60 minutes which was spent in the activities documented in the note. This includes time spent prior to the visit and after the visit in direct care of the patient. This time does not include time spent in any separately reportable services. Updated and reviewed problem list and PH. Also, dystrophic toe nails with square cut. Discussed. (She admits to similar, previous discussionswith Dr. Bell.) documented in this encounter Nursing Notes * Katharine Finney RN - 01/28/2024 1:23 PM CDT Report called to Tracy at [facility]. PIVs and tele removed. Discharge packet and education reviewed with patient and family at bedside. All questions answered. Patient ready for discharge. documented in this encounter Miscellaneous Notes * Consults, Subsequent - Vanita Ware NP - 01/28/2024 12:35 PM CDT Endocrinology & Diabetes Inpatient Subsequent Consult Note Patient: Isabelle Lutz, 73 y.o. female (: 1950) Room: [place] [address] [address] ( ) LOS: 8 Isabelle Lutz is a 73 y.o. female with PMH significant for hypothyroidism, osteoporosis, CAD, PVD, CKD, HTN, HLD and T2DM who presented to the hospital for planned CABG (now s/p 3 vessel CABG, [place], 01/20/24). The Endocrinology/Diabetes Service is being consulted for inpatient blood glucose management and discharge planning recommendations during this hospitalization. Interval Events & Subjective There were no acute events overnight. Ms. Lutz reports her appetite OK . Reports nausea when laying flat in bed, expected incisional chest pain and shortness of breath with exertion; denies vomiting/diarrhea, fever or chills today. Voiding without difficulty, passing flatus, BM today. Hopes to be discharged to rehab today. Diet: Adult Diet Restricted; Low Fat, Low Chol; Consistent Carbohydrate Blood glucose over previous 24 hours in good margin of safety, but not at target with range of 106-226 mg/dl. Fasting blood glucose this morning was 106 mg/dl Total daily dose of insulin was 34 units Basal Dose: 20 units Bolus Dose: 12 units Correctional Dose: 2 units Target inpatient blood glucose is 100-200 mg/dl Recent Labs Lab Units 01/28/24 1200 01/28/24 1038 01/28/24 0752 01/28/24 0118 01/27/24 2103 01/27/24 1933 01/27/24 1655 01/27/24 1120 01/27/24 0851 01/27/24 0729 GLUCOSE mg/dL -- -- -- -- 165 -- -- -- -- -- POC GLUCOSE MONITOR mg/dL 179 179 106 119 -- 226* 163 127 106 107 Vitals & Exam Temp: [36.2 ??C (97.2 ??F)-36.7 ??C (98.1 ??F)] 36.7 ??C (98.1 ??F) Pulse: [67-77] 72 BP: (93-125)/(43-63) 114/58 Resp: [16-18] 18 SpO2: [96 %-100 %] 100 % I/O this shift: In: - Out: 250 [Urine:250] Physical Exam Gen : pleasant 73 year old female resting quietly in chair in no acute distress, alert, appropriate, cooperative, appears stated age, well-developed, well- nourished; visitor at bedside HENT : normocephalic, atraumatic, moist mucus membranes Eyes : conjunctiva clear, anicteric, no proptosis/exophthalmos/lid lag Pulm : non-labored, on room air Extr : atraumatic, no cyanosis/clubbing/edema Skin : turgor normal, no rashes/wounds/lesions, chest tube Neuro : alert, speech fluent, comprehension intact, moving all extremities Psych : cooperative, appropriate affect & mood, good insight & judgment Data Medications, labs, imaging, and diagnostics independently reviewed in Epic and commented on below. Lab Results Component Value Date TSH 0.69 10/29/2023 FREET4 1.38 10/29/2023 Lab Results Component Value Date CHOL 158 10/29/2023 TRIG 88 01/20/2024 HDL 49 (L) 06/25/2022 LDLCALC 91 01/13/2021 LDLDIRECT 92 10/29/2023 Lab Results Component Value Date PTH 71 06/25/2022 25HYDROVITD 40 01/13/2021 Lab Results Component Value Date HGBA1C 5.9 10/29/2023 Assessment & Plan 73 y.o. female with PMH significant for hypothyroidism, osteoporosis, CAD, PVD, CKD, HTN, HLD and T2DM who presented to the hospital for planned CABG (now s/p 3 vessel CABG, [place], 9/9/24). # Type 2 Diabetes Mellitus, Controlled, complicated by post op stress and steroid use Current HbA1c and reliability: 5.9%, CKD, anemia HbA1c goal based on comorbidities: <7 Diabetes Provider: Dr. Bell Insurance: Payor: MEDICARE / Plan: MEDICARE PART A & B / Product Type: MEDICARE TRADITIONAL / Home regimen: Ozempic 2 mg Empagliflozin 10 mg 50 insulin glargine 10 insulin lispro TID with meals Levothyroxine 88 mcg Metformin 500 mg daily Blood glucose over previous 24 hours in good margin of safety, but not at target with range of 106-226 mg/dl. Fasting blood glucose this morning was 106 mg/dl Total daily dose of insulin was 34 units Basal Dose: 20 units Bolus Dose: 12 units Correctional Dose: 2 units Target inpatient blood glucose is 100-200 mg/dl Inpatient glycemic control is complicated by variable oral intake, stress. As glycemia well controlled, we recommend continuing the current insulin regimen today. We will continue to intensely monitor blood glucose and titrate insulin as needed to optimize glycemic control to avoid hypoglycemic/hyperglycemic events. Recommendations for diabetes management were discussed with the primary team. Recommendations: Basal Insulin: - glargine 20 units qHS Mealtime/Bolus Insulin: - lispro 6 units TID from AC to PC Correctional/Sliding-Scale Insulin: - sensitive correctional insulin lispro TID AC, HS - POC glucoses TID AC, HS, 2AM when eating - Consistent carb diet when eating; no juices, no regular soda - When NPO, continue glargine, hold mealtime lispro, change correctional (sliding scale) lispro andPOC glucoses to Q4hr - If he has severe hyperglycemia (>300), use the hyperglycemia urgency order set (make NPO, IV insulin, re-check in 1 hour) > The half-life of IV insulin is ~5 minutes; it's safer than giving multiple doses of subQ insulin (can last ~4 hours & builds up if given repeatedly). ## Discharge Planning Medication Recommendations (Please use the ADULT END DIABETES DISCHARGE order set): - glargine 20 units subcutaneously Q HS - lispro 6 units subcutaneously TID with meals plus sensitive correctional insulin (1 unit per 50 points greater than 150 mg/dl) TID/HS; max daily dose 40 units - empagliflozin 10 mg PO every day - metformin 500 mg PO every day - semaglutide 2 mg subcutaneously Q week - levothyroxine 88 mcg PO every day Labs/Frequency to be Monitored: Monitor blood glucose TID/HS and PRN HbA1c every 3 months or 6 months if appropriate, Urine microalbumin/creatinine test yearly, Cholesterol panel yearly, TSH, and Dilated eye exam yearly or sooner as indicated by your eyelet row marker Pending results for primary service or primary care physician to follow up on: None at time of discharge Follow Up Plan: [facility] Endocrinology Appointment date: Follow up with Dr. Bell on 03/02/24 at 11:40 AM as scheduled Location: [facility]: [address] [place] [address],[address], [place] [address] Endocrinology clinic number: [phone] -- Vanita Ware NP Endocrinology, Metabolism, & Lipid Research Contact Info: New Endocrinology Diabetes Consults: [phone] General Endocrine (Non-Diabetes): [phone] Treatment Teams: [facility] Endocrinology Diabetes 1: Fellow + Attending [facility] Endocrinology Diabetes 2: Vanita Ware NP at [phone] [facility] Endocrinology Diabetes 3: Marcia Irvin NP at [phone] [facility] Endocrinology Diabetes 4: Jacki Patel NP (/) at [phone] or Leeanne Lincoln NP (//) at [phone] Diabetes After-Hours & Weekends: Diabetes Fellow [phone] or [phone] * Plan of Care - Katharine Finney RN - 01/28/2024 12:34 PM CDT Problem: Skin Integrity Impairment Risk Goal: Mobility will improve Outcome: Adequate for Discharge Goal: Understanding of ways to prevent future skin breakdown will improve Outcome: Adequate for Discharge Goal: Nutritional status will improve Outcome: Adequate for Discharge Goal: Risk for impaired skin integrity will decrease Outcome: Adequate for Discharge Problem: Lack of Knowledge Goal: Ability to develop a pain control plan will improve Outcome: Adequate for Discharge Problem: Medication Goal: Satisfaction with pain management medication regimen will improve Outcome: Adequate for Discharge Problem: Sensory Goal: Ability to identify factors that increase pain levels will improve while working to decrease the patient's pain levels Outcome: Adequate for Discharge Problem: Coping Goal: Ability to cope will improve Outcome: Adequate for Discharge Problem: Health Behavior Goal: Identification of resources available to assist in meeting health care needs will improve Outcome: Adequate for Discharge Problem: Discharge Planning Goal: Understanding discharge needs will improve Outcome: Adequate for Discharge Problem: Lack of Knowledge Goal: Ability to describe self care measures that may prevent or decrease complications related to Type 1 Diabetes will improve Outcome: Adequate for Discharge Goal: Ability to describe self care measures that may prevent or decrease complications related to Type 2 Diabetes will improve Outcome: Adequate for Discharge Problem: Health Nutrition Goal: Nutritional intake and knowledge related to Diabetes will improve Outcome: Adequate for Discharge Problem: Neurosensory Goal: Achieves stable or improved neurological status Outcome: Adequate for Discharge Goal: Achieves maximal functionality and self care Outcome: Adequate for Discharge Problem: Respiratory Goal: Achieves optimal ventilation and oxygenation Outcome: Adequate for Discharge Goal: Ability to maintain a clear airway will improve Outcome: Adequate for Discharge Goal: Mechanical Ventilation will be safely managed Outcome: Adequate for Discharge Problem: Cardiovascular Goal: Maintains optimal cardiac output and hemodynamic stability Outcome: Adequate for Discharge Goal: Absence of cardiac dysrhythmias or at baseline Outcome: Adequate for Discharge Goal: Cardiovascular status will improve Outcome: Adequate for Discharge Problem: Skin/Tissue Integrity Goal: Skin integrity remains intact Outcome: Adequate for Discharge Goal: Incisions, wounds, or drain sites healing without S/S of infection Outcome: Adequate for Discharge Goal: Oral mucous membranes remain intact Description: Outcome: Adequate for Discharge Problem: Musculoskeletal Goal: Return mobility to safest level of function Outcome: Adequate for Discharge Goal: Maintain proper alignment of affected body part Outcome: Adequate for Discharge Goal: Return ADL status to a safe level of function Outcome: Adequate for Discharge Goal: Ability to perform activities at highest level will improve Outcome: Adequate for Discharge Goal: Mobility, ROM and muscle strength will improve Outcome: Adequate for Discharge Problem: Gastrointestinal Goal: Minimal or absence of nausea and vomiting Outcome: Adequate for Discharge Goal: Maintains or returns to baseline bowel function Outcome: Adequate for Discharge Goal: Maintains adequate nutritional intake Outcome: Adequate for Discharge Goal: Will show no signs and symptoms of gastrointestinal bleeding Outcome: Adequate for Discharge Problem: Genitourinary Goal: Absence of urinary retention Outcome: Adequate for Discharge Goal: Urinary catheter remains patent Outcome: Adequate for Discharge Problem: Infection Goal: Absence of infection during hospitalization Outcome: Adequate for Discharge Goal: Absence of fever/infection during anticipated neutropenic period Outcome: Adequate for Discharge Problem: Metabolic/Fluid and Electrolytes Goal: Electrolytes maintained within normal limits Outcome: Adequate for Discharge Goal: Hemodynamic stability and optimal renal function maintained Outcome: Adequate for Discharge Goal: Glucose maintained within prescribed range Outcome: Adequate for Discharge Problem: Hematologic Goal: Maintains hematologic stability Outcome: Adequate for Discharge Problem: Fall Risk Goal: Ability to state ways to decrease the risk of falls will improve Outcome: Adequate for Discharge Goal: Will remain free from falls Outcome: Adequate for Discharge Goal: Will remain free from injury from falls Outcome: Adequate for Discharge Goals: Clinical Goals for the Shift: VSS, pain managmentment, I&Os, discharge education and planning, remain free from falls and injury [facility] Patient Centered Goal for Treatment: safe discharge to home Summary: VSS, pain management plan followed, I&Os monitored, discharge education and planning complete, pt remained free from falls and injury. * Summary of Treatment Recommendations Non-Billable - Vanita Ware NP - 01/28/2024 8:56 AM CDT Diabetes Service Discharge/Sign Off Recommendations Type of DM: Type 2 Diabetes Mellitus, Controlled, complicated by post op stress and steroid use Diagnosis: Coronary artery disease, unspecified vessel or lesion type, unspecified whether angina present, unspecified whether king salmon or transplanted heart [I25.10] Coronary artery disease due to calcified coronary lesion [I25.10, I25.84] CAD, multiple vessel [I25.10] PMD: Elpidio Serrato MD Medication Recommendations (Please use the ADULT END DIABETES DISCHARGE order set): - glargine 20 units subcutaneously Q HS - lispro 6 units subcutaneously TID with meals plus sensitive correctional insulin (1 unit per 50 points greater than 150 mg/dl) TID/HS; max daily dose 40 units - empagliflozin 10 mg PO every day - metformin 500 mg PO every day - semaglutide 2 mg subcutaneously Q week - levothyroxine 88 mcg PO every day Labs/Frequency to be Monitored: Monitor blood glucose TID/HS and PRN HbA1c every 3 months or 6 months if appropriate, Urine microalbumin/creatinine test yearly, Cholesterol panel yearly, TSH, and Dilated eye exam yearly or sooner as indicated by your eyelet row marker Pending results for primary service or primary care physician to follow up on: None at time of discharge Follow Up Plan: [facility] Endocrinology Appointment date: Follow up with Dr. Bell on 03/02/24 at 11:40 AM as scheduled Location: [facility]: [address] [place] [address],[address], [place] [address] Endocrinology clinic number: [phone] * Plan of Care - Carmita Eden RN - 01/27/2024 10:23 PM CDT Goals: Clinical Goals for the Shift: hemodynamically stable, promote comfort and sleep, labs will trend toward normal values, pt will not fall Halfway Patient Centered Goal for Treatment: safe discharge to home Problem: Skin Integrity Impairment Risk Goal: Mobility will improve Outcome: Progressing Goal: Understanding of ways to prevent future skin breakdown will improve Outcome: Progressing Goal: Nutritional status will improve Outcome: Progressing Goal: Risk for impaired skin integrity will decrease Outcome: Progressing Problem: Lack of Knowledge Goal: Ability to develop a pain control plan will improve Outcome: Progressing Problem: Medication Goal: Satisfaction with pain management medication regimen will improve Outcome: Progressing Problem: Sensory Goal: Ability to identify factors that increase pain levels will improve while working to decrease the patient's pain levels Outcome: Progressing Problem: Coping Goal: Ability to cope will improve Outcome: Progressing Problem: Health Behavior Goal: Identification of resources available to assist in meeting health care needs will improve Outcome: Progressing Problem: Discharge Planning Goal: Understanding discharge needs will improve Outcome: Progressing Problem: Lack of Knowledge Goal: Ability to describe self care measures that may prevent or decrease complications related to Type 1 Diabetes will improve Outcome: Progressing Goal: Ability to describe self care measures that may prevent or decrease complications related to Type 2 Diabetes will improve Outcome: Progressing Problem: Health Nutrition Goal: Nutritional intake and knowledge related to Diabetes will improve Outcome: Progressing Problem: Neurosensory Goal: Achieves stable or improved neurological status Outcome: Progressing Goal: Achieves maximal functionality and self care Outcome: Progressing Problem: Respiratory Goal: Achieves optimal ventilation and oxygenation Outcome: Progressing Goal: Ability to maintain a clear airway will improve Outcome: Progressing Goal: Mechanical Ventilation will be safely managed Outcome: Progressing Problem: Cardiovascular Goal: Maintains optimal cardiac output and hemodynamic stability Outcome: Progressing Flowsheets (Taken 01/26/2024126) Maintain optimal cardiac output and hemodynamic Stability: Monitor vital signs, rhythm, and trends Monitor for bleeding, hypotension and signs of decreased cardiac output Administer and titrate ordered vasoactive medications to optimize hemodynamic stability Monitor arterial and/or venous puncture sites for bleeding and/or hematoma Assess quality of pulses, skin color and temperature Assess for signs of decreased coronary artery perfusion - ex. angina Monitor urine output and notify provider of values outside normal range Administer fluid and/or volume expanders as ordered Goal: Absence of cardiac dysrhythmias or at baseline Outcome: Progressing Flowsheets (Taken 01/26/2024126) Absence of cardiac dysrhythmias or at baseline: Continuous cardiac monitoring, monitor vital signs, obtain 12 lead EKG if indicated Administer antiarrhythmic and heart rate control medications as ordered Initiate emergency measures for life threatening arrhythmias Monitor electrolytes and administer replacement therapy as ordered Goal: Cardiovascular status will improve Outcome: Progressing Flowsheets (Taken 01/26/2024126) Cardiovascular status will improve: Monitor for signs and symptoms of chest pain Monitor signs and symptoms of heart failure Collaborate with cardiac rehabilitation or related activity programs Instruct immediate reporting of any chest discomfort or pain Monitor electrocardiogram Problem: Skin/Tissue Integrity Goal: Skin integrity remains intact Outcome: Progressing Goal: Incisions, wounds, or drain sites healing without S/S of infection Outcome: Progressing Goal: Oral mucous membranes remain intact Description: Outcome: Progressing Problem: Musculoskeletal Goal: Return mobility to safest level of function Outcome: Progressing Goal: Maintain proper alignment of affected body part Outcome: Progressing Goal: Return ADL status to a safe level of function Outcome: Progressing Goal: Ability to perform activities at highest level will improve Outcome: Progressing Goal: Mobility, ROM and muscle strength will improve Outcome: Progressing Problem: Gastrointestinal Goal: Minimal or absence of nausea and vomiting Outcome: Progressing Goal: Maintains or returns to baseline bowel function Outcome: Progressing Goal: Maintains adequate nutritional intake Outcome: Progressing Goal: Will show no signs and symptoms of gastrointestinal bleeding Outcome: Progressing Problem: Genitourinary Goal: Absence of urinary retention Outcome: Progressing Goal: Urinary catheter remains patent Outcome: Progressing Problem: Infection Goal: Absence of infection during hospitalization Outcome: Progressing Goal: Absence of fever/infection during anticipated neutropenic period Outcome: Progressing Problem: Metabolic/Fluid and Electrolytes Goal: Electrolytes maintained within normal limits Outcome: Progressing Flowsheets (Taken 01/26/2024126) Electrolytes maintained within normal limits: Monitor labs and assess patient for signs and symptoms of electrolyte imbalances Administer electrolyte replacement as ordered Monitor response to electrolyte replacements, including repeat lab results as appropriate Fluid restriction as ordered Instruct patient on fluid and nutrition restrictions as appropriate Provide fluid volume management Goal: Hemodynamic stability and optimal renal function maintained Outcome: Progressing Flowsheets (Taken 01/26/2024126) Hemodynamic stability and optimal renal function maintained: Monitor labs and assess for signs and symptoms of volume excess or deficit Monitor intake, output and patient weight Monitor urine specific gravity, serum osmolarity and serum sodium as indicated or ordered Monitor response to interventions for patient's volume status, including labs, urine output, blood pressure (other measures as available) Encourage oral intake as appropriate Manage intravenous fluids Instruct patient on fluid and nutrition restrictions as appropriate Goal: Glucose maintained within prescribed range Outcome: Progressing Flowsheets (Taken 01/26/2024126) Glucose maintained within prescribed range: Assess for signs and symptoms of hyperglycemia and hypoglycemia, monitor glucose as ordered Administer ordered medications to maintain glucose within target range Assess barriers to adequate nutritional intake and initiate nutrition consult as needed Instruct patient on self management of diabetes and initiate consult as needed Problem: Hematologic Goal: Maintains hematologic stability Outcome: Progressing Problem: Fall Risk Goal: Ability to state ways to decrease the risk of falls will improve Outcome: Progressing Goal: Will remain free from falls Outcome: Progressing Goal: Will remain free from injury from falls Outcome: Progressing * Plan of Care - Katharine Finney RN - 01/27/2024 6:23 PM CDT Problem: Skin Integrity Impairment Risk Goal: Mobility will improve Outcome: Progressing Goal: Understanding of ways to prevent future skin breakdown will improve Outcome: Progressing Goal: Nutritional status will improve Outcome: Progressing Goal: Risk for impaired skin integrity will decrease Outcome: Progressing Problem: Lack of Knowledge Goal: Ability to develop a pain control plan will improve Outcome: Progressing Problem: Medication Goal: Satisfaction with pain management medication regimen will improve Outcome: Progressing Problem: Sensory Goal: Ability to identify factors that increase pain levels will improve while working to decrease the patient's pain levels Outcome: Progressing Problem: Coping Goal: Ability to cope will improve Outcome: Progressing Problem: Health Behavior Goal: Identification of resources available to assist in meeting health care needs will improve Outcome: Progressing Problem: Discharge Planning Goal: Understanding discharge needs will improve Outcome: Progressing Problem: Lack of Knowledge Goal: Ability to describe self care measures that may prevent or decrease complications related to Type 1 Diabetes will improve Outcome: Progressing Goal: Ability to describe self care measures that may prevent or decrease complications related to Type 2 Diabetes will improve Outcome: Progressing Problem: Health Nutrition Goal: Nutritional intake and knowledge related to Diabetes will improve Outcome: Progressing Problem: Neurosensory Goal: Achieves stable or improved neurological status Outcome: Progressing Goal: Achieves maximal functionality and self care Outcome: Progressing Problem: Respiratory Goal: Achieves optimal ventilation and oxygenation Outcome: Progressing Goal: Ability to maintain a clear airway will improve Outcome: Progressing Goal: Mechanical Ventilation will be safely managed Outcome: Progressing Problem: Cardiovascular Goal: Maintains optimal cardiac output and hemodynamic stability Outcome: Progressing Goal: Absence of cardiac dysrhythmias or at baseline Outcome: Progressing Goal: Cardiovascular status will improve Outcome: Progressing Problem: Skin/Tissue Integrity Goal: Skin integrity remains intact Outcome: Progressing Goal: Incisions, wounds, or drain sites healing without S/S of infection Outcome: Progressing Goal: Oral mucous membranes remain intact Description: Outcome: Progressing Problem: Musculoskeletal Goal: Return mobility to safest level of function Outcome: Progressing Goal: Maintain proper alignment of affected body part Outcome: Progressing Goal: Return ADL status to a safe level of function Outcome: Progressing Goal: Ability to perform activities at highest level will improve Outcome: Progressing Goal: Mobility, ROM and muscle strength will improve Outcome: Progressing Problem: Gastrointestinal Goal: Minimal or absence of nausea and vomiting Outcome: Progressing Goal: Maintains or returns to baseline bowel function Outcome: Progressing Goal: Maintains adequate nutritional intake Outcome: Progressing Goal: Will show no signs and symptoms of gastrointestinal bleeding Outcome: Progressing Problem: Genitourinary Goal: Absence of urinary retention Outcome: Progressing Goal: Urinary catheter remains patent Outcome: Progressing Problem: Infection Goal: Absence of infection during hospitalization Outcome: Progressing Goal: Absence of fever/infection during anticipated neutropenic period Outcome: Progressing Problem: Metabolic/Fluid and Electrolytes Goal: Electrolytes maintained within normal limits Outcome: Progressing Goal: Hemodynamic stability and optimal renal function maintained Outcome: Progressing Goal: Glucose maintained within prescribed range Outcome: Progressing Problem: Hematologic Goal: Maintains hematologic stability Outcome: Progressing Problem: Fall Risk Goal: Ability to state ways to decrease the risk of falls will improve Outcome: Progressing Goal: Will remain free from falls Outcome: Progressing Goal: Will remain free from injury from falls Outcome: Progressing Goals: Clinical Goals for the Shift: VSS, pain managment, remain free from falls and injury Disintegrator 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 * Consults, Subsequent - Vanita Ware NP - 01/27/2024 12:32 PM CDT Endocrinology & Diabetes Inpatient Subsequent Consult Note Patient: Isabelle Lutz, 73 y.o. female (: 1950) Room: [place] [address]/[place] [address] ( ) LOS: 7 Isabelle Lutz is a 73 y.o. female with PMH significant for hypothyroidism, osteoporosis, CAD, PVD, CKD, HTN, HLD and T2DM who presented to the hospital for planned CABG (now s/p 3 vessel CABG, [place], 01/20/24). The Endocrinology/Diabetes Service is being consulted for inpatient blood glucose management and discharge planning recommendations during this hospitalization. Interval Events & Subjective There were no acute events overnight. Ms. Lutz reports I get bone chills that last ~2-3 hours after hypoglycemia, so I'm still cold from the low blood sugar this morning. Appetite OK . Reports expected incisional chest pain; denies vomiting/diarrhea, fever or chills today. Voiding without difficulty. Hopes to be discharged to rehab soon. Diet: Adult Diet Restricted; Low Fat, Low Chol; Consistent Carbohydrate Blood glucose over previous 24 hours tightly controlled with range of 58-234 mg/dl. Hypoglycemia treated with juice. Symptomatic. Fasting blood glucose this morning was 106 mg/dl Total daily dose of insulin was 50 units Basal Dose: 24 units Bolus Dose: 24 units Correctional Dose: 2 units administered for blood glucose of 201 mg/dl (glucose checked at 1950, insulin not administered until 2145. In the interim, blood glucose with chemistry was 138 mg/dl at 2119). Target inpatient blood glucose is 100-200 mg/dl Recent Labs Lab Units 01/27/24 1120 01/27/24 0851 01/27/24 0729 01/27/24 0313 01/27/24 0214 01/27/24 0139 01/27/24 0119 01/27/24 0100 01/26/240 01/26/241950 GLUCOSE mg/dL -- -- -- -- -- -- -- -- 138 -- POC GLUCOSE MONITOR mg/dL 127 106 107 123 119 92 73 58* -- 201* Vitals & Exam Temp: [36.6 ??C (97.9 ??F)-36.9 ??C (98.4 ??F)] 36.8 ??C (98.2 ??F) Pulse: [65-80] 70 BP: (103-118)/(52-67) 111/61 Resp: [18] 18 SpO2: [97 %-100 %] 98 % I/O this shift: In: - Out: 1000 [Urine:1000] Physical Exam Gen : pleasant 73 year old female resting quietly in chair in no acute distress, alert, appropriate, cooperative, appears stated age, well-developed, well- nourished; visitor at bedside HENT : normocephalic, atraumatic, moist mucus membranes Eyes : conjunctiva clear, anicteric, no proptosis/exophthalmos/lid lag Pulm : non-labored, on room air Extr : atraumatic, no cyanosis/clubbing/edema Skin : turgor normal, no rashes/wounds/lesions, chest tube Neuro : alert, speech fluent, comprehension intact, moving all extremities Psych : cooperative, appropriate affect & mood, good insight & judgment Data Medications, labs, imaging, and diagnostics independently reviewed in [facility] and commented on below. Lab Results Component Value Date TSH 0.69 10/29/2023 FREET4 1.38 10/29/2023 Lab Results Component Value Date CHOL 158 10/29/2023 TRIG 88 01/20/2024 HDL 49 (L) 06/25/2022 LDLCALC 91 01/13/2021 LDLDIRECT 92 10/29/2023 Lab Results Component Value Date PTH 71 06/25/2022 25HYDROVITD 40 01/13/2021 Lab Results Component Value Date HGBA1C 5.9 10/29/2023 Assessment & Plan 73 y.o. female with PMH significant for hypothyroidism, osteoporosis, CAD, PVD, CKD, HTN, HLD and T2DM who presented to the hospital for planned CABG (now s/p 3 vessel CABG, [place], 01/20/24). # Type 2 Diabetes Mellitus, Controlled, complicated by post op stress and steroid use Current HbA1c and reliability: 5.9%, CKD, anemia HbA1c goal based on comorbidities: <7 Diabetes Provider: Dr. Bell Insurance: Payor: MEDICARE / Plan: MEDICARE PART A & B / Product Type: MEDICARE TRADITIONAL / Home regimen: Ozempic 2 mg Empagliflozin 10 mg 50 insulin glargine 10 insulin lispro TID with meals Levothyroxine 88 mcg Metformin 500 mg daily Blood glucose over previous 24 hours tightly controlled with range of 58-234 mg/dl. Hypoglycemia treated with juice. Symptomatic. Fasting blood glucose this morning was 106 mg/dl Total daily dose of insulin was 50 units Basal Dose: 24 units Bolus Dose: 24 units Correctional Dose: 2 units administered for blood glucose of 201 mg/dl (glucose checked at 1950, insulin not administered until 2145. In the interim, blood glucose with chemistry was 138 mg/dl at 2119). Target inpatient blood glucose is 100-200 mg/dl Inpatient glycemic control is complicated by variable oral intake, stress. Hypoglycemia likely due to bolus/correctional insulin but was also low (94 mg/dl fasting yesterday); therefore, we recommend decreasing all insulin doses today. We will continue to intensely monitor blood glucose and titrate insulin as needed to optimize glycemic control to avoid hypoglycemic/hyperglycemic events. Recommendations for diabetes management were discussed with the primary team. Recommendations: Basal Insulin: - decrease glargine from 24 units to 20 units qHS Mealtime/Bolus Insulin: - decrease lispro from 8 units to 6 units TID from AC to PC Correctional/Sliding-Scale Insulin: - adjust correctional insulin lispro from resistant to sensitive TID AC, HS - POC glucoses TID AC, HS, 2AM when eating - Consistent carb diet when eating; no juices, no regular soda - When NPO, continue glargine, hold mealtime lispro, change correctional (sliding scale) lispro andPOC glucoses to Q4hr - If he has severe hyperglycemia (>300), use the hyperglycemia urgency order set (make NPO, IV insulin, re-check in 1 hour) > The half-life of IV insulin is ~5 minutes; it's safer than giving multiple doses of subQ insulin (can last ~4 hours & builds up if given repeatedly). ## Discharge Planning Use ???Adult END Diabetes Discharge?? Order Set - Follow up with Dr. Bell on 03/02/24 at 11:40 AM as scheduled -- Vanita Ware NP Endocrinology, Metabolism, & Lipid Research Contact Info: New Endocrinology Diabetes Consults: [phone] General Endocrine (Non-Diabetes): [phone] Treatment Teams: [facility] Endocrinology Diabetes 1: Fellow + Attending [facility] Endocrinology Diabetes 2: Vanita Ware NP at [phone] [facility] Endocrinology Diabetes 3: Marcia Irvin NP at [phone] [facility] Endocrinology Diabetes 4: Jacki Patel NP (/) at [phone] or Leeanne Lincoln NP (//) at [phone] Diabetes After-Hours & Weekends: Diabetes Fellow [phone] or [phone] * Plan of Care - Carmita Eden RN - 01/26/2024 10:48 PM CDT Problem: Respiratory Goal: Achieves optimal ventilation and oxygenation Flowsheets (Taken 01/26/2024 0281) Achieves optimal ventilation and oxygenation: Assess for changes in mentation and behavior Assess for changes in respiratory status Position to facilitate oxygenation and minimize respiratory effort Oxygen supplementation based on oxygen saturation or arterial blood gases Initiate smoking cessation protocol as indicated Encourage broncho-pulmonary hygiene including cough, deep breathing, incentive spirometry Assess the need for suctioning and suction as needed Assess and instruct to report shortness of breath or any respiratory difficulty Manage oxygen therapy Evaluate effectiveness and side effects of inhalation therapy and medications Perform cluster care Problem: Metabolic/Fluid and Electrolytes Goal: Electrolytes maintained within normal limits Flowsheets (Taken 01/26/2024 0127) Electrolytes maintained within normal limits: Monitor labs and assess patient for signs and symptoms of electrolyte imbalances Administer electrolyte replacement as ordered Monitor response to electrolyte replacements, including repeat lab results as appropriate Fluid restriction as ordered Instruct patient on fluid and nutrition restrictions as appropriate Provide fluid volume management Goal: Hemodynamic stability and optimal renal function maintained Flowsheets (Taken 01/26/2024 0127) Hemodynamic stability and optimal renal function maintained: Monitor labs and assess for signs and symptoms of volume excess or deficit Monitor intake, output and patient weight Monitor urine specific gravity, serum osmolarity and serum sodium as indicated or ordered Monitor response to interventions for patient's volume status, including labs, urine output, blood pressure (other measures as available) Encourage oral intake as appropriate Manage intravenous fluids Instruct patient on fluid and nutrition restrictions as appropriate Goal: Glucose maintained within prescribed range Flowsheets (Taken 01/26/2024 0127) Glucose maintained within prescribed range: Assess for signs and symptoms of hyperglycemia and hypoglycemia, monitor glucose as ordered Administer ordered medications to maintain glucose within target range Assess barriers to adequate nutritional intake and initiate nutrition consult as needed Instruct patient on self management of diabetes and initiate consult as needed Problem: Hematologic Goal: Maintains hematologic stability Flowsheets (Taken 01/26/2024 2247) Maintains Hematologic Stability: Assess for signs and symptoms of bleeding or hemorrhage Monitor labs Administer supportive blood products/factors as ordered and appropriate Goals: Clinical Goals for the Shift: hemodynamically stable, promote comfort and sleep, labs will trend toward normal values, pt will not fall Halfway Patient Centered Goal for Treatment: safe discharge to home * Plan of Care - Mega Wharton RN - 01/26/2024 5:55 PM CDT Problem: Skin Integrity Impairment Risk Goal: Mobility will improve Outcome: Progressing Goal: Understanding of ways to prevent future skin breakdown will improve Outcome: Progressing Goal: Nutritional status will improve Outcome: Progressing Goal: Risk for impaired skin integrity will decrease Outcome: Progressing Problem: Lack of Knowledge Goal: Ability to develop a pain control plan will improve Outcome: Progressing Problem: Medication Goal: Satisfaction with pain management medication regimen will improve Outcome: Progressing Problem: Sensory Goal: Ability to identify factors that increase pain levels will improve while working to decrease the patient's pain levels Outcome: Progressing Problem: Coping Goal: Ability to cope will improve Outcome: Progressing Problem: Health Behavior Goal: Identification of resources available to assist in meeting health care needs will improve Outcome: Progressing Problem: Discharge Planning Goal: Understanding discharge needs will improve Outcome: Progressing Problem: Lack of Knowledge Goal: Ability to describe self care measures that may prevent or decrease complications related to Type 1 Diabetes will improve Outcome: Progressing Goal: Ability to describe self care measures that may prevent or decrease complications related to Type 2 Diabetes will improve Outcome: Progressing Problem: Health Nutrition Goal: Nutritional intake and knowledge related to Diabetes will improve Outcome: Progressing Problem: Neurosensory Goal: Achieves stable or improved neurological status Outcome: Progressing Goal: Achieves maximal functionality and self care Outcome: Progressing Problem: Respiratory Goal: Achieves optimal ventilation and oxygenation Outcome: Progressing Goal: Ability to maintain a clear airway will improve Outcome: Progressing Goal: Mechanical Ventilation will be safely managed Outcome: Progressing Problem: Cardiovascular Goal: Maintains optimal cardiac output and hemodynamic stability Outcome: Progressing Goal: Absence of cardiac dysrhythmias or at baseline Outcome: Progressing Goal: Cardiovascular status will improve Outcome: Progressing Problem: Skin/Tissue Integrity Goal: Skin integrity remains intact Outcome: Progressing Goal: Incisions, wounds, or drain sites healing without S/S of infection Outcome: Progressing Goal: Oral mucous membranes remain intact Description: Outcome: Progressing Problem: Musculoskeletal Goal: Return mobility to safest level of function Outcome: Progressing Goal: Maintain proper alignment of affected body part Outcome: Progressing Goal: Return ADL status to a safe level of function Outcome: Progressing Goal: Ability to perform activities at highest level will improve Outcome: Progressing Goal: Mobility, ROM and muscle strength will improve Outcome: Progressing Problem: Gastrointestinal Goal: Minimal or absence of nausea and vomiting Outcome: Progressing Goal: Maintains or returns to baseline bowel function Outcome: Progressing Goal: Maintains adequate nutritional intake Outcome: Progressing Goal: Will show no signs and symptoms of gastrointestinal bleeding Outcome: Progressing Problem: Genitourinary Goal: Absence of urinary retention Outcome: Progressing Goal: Urinary catheter remains patent Outcome: Progressing Problem: Infection Goal: Absence of infection during hospitalization Outcome: Progressing Goal: Absence of fever/infection during anticipated neutropenic period Outcome: Progressing Problem: Metabolic/Fluid and Electrolytes Goal: Electrolytes maintained within normal limits Outcome: Progressing Goal: Hemodynamic stability and optimal renal function maintained Outcome: Progressing Goal: Glucose maintained within prescribed range Outcome: Progressing Problem: Hematologic Goal: Maintains hematologic stability Outcome: Progressing Problem: Fall Risk Goal: Ability to state ways to decrease the risk of falls will improve Outcome: Progressing Goal: Will remain free from falls Outcome: Progressing Goal: Will remain free from injury from falls Outcome: Progressing * Consults, Subsequent - Cordell Roberts MD - 01/26/2024 10:11 AM CDT Images from the original note were not included. Endocrinology & Diabetes Inpatient Subsequent Consult Note Patient: Isabelle Lutz, 73 y.o. female (: 1950) Room: [place] [address] ( ) LOS: 6 Isabelle Lutz is a 73 y.o. female with PMH significant for hypothyroidism, osteoporosis, CAD, PVD, CKD, HTN, HLD and T2DM who presented to the hospital for planned CABG (now s/p 3 vessel CABG, [place], 01/20/24). The Endocrinology/Diabetes Service is being consulted for inpatient blood glucose management and discharge planning recommendations during this hospitalization. Interval Events & Subjective Hypoglycemic after lunch 2 days ago. Breakfast insulin not given until 10 AM; lunch indulin 13:20. Hypoglycemic after lunch yesterday. Breakfast insulin 09:30. Lunch insulin 12:40. Orders edited to avoid insulin being given too long after meal to avoid mismatch. Minimally low this morning. Improving insulin resistance. Some limited activity and ambulation. Diet: Adult Diet Restricted; Low Fat, Low Chol; Consistent Carbohydrate Recent Labs Lab Units 01/26/24 0818 01/26/24 0638 01/26/24 0501 01/26/24 0431 01/26/24 0243 01/25/24 2140 01/25/24 2139 01/25/24 1840 01/25/24 1732 01/25/24 1716 GLUCOSE mg/dL -- -- -- -- -- 131 -- -- -- -- POC GLUCOSE MONITOR mg/dL 94 111 107 64* 83 -- 146 197 111 72 Some history was reiterated: Gulshan 21 Jan 2024 Type of DM: type 2 diabetes mellitus Diagnosed 28 years ago Weight at diagnosis: 120-130 lb Heaviest weight: 150-160 lb Weight at age 17yo: 120-130 lb Last A1c:5.9%; reliability: CKD, anemia Managed by PMD or [employer] [facility] S[facility] Dr. Bell Hx of DKA/HHS/Hospitalizations for hypoglycemia: no Hx of pancreatitis/MEN/medullary thyroid CA: no Family History: mother with T1DM, brother, sister with T2DM Reports no recent changes in weight, polydipsia, polyuria, dysuria, abdominal pain, nausea or vomiting. Microvascular complications: Nephropathy; not present from diabetes (albumin/Cr not elevated), but does have Neuropathy; yes, present--decreased vibratory sensation Retinopathy; not present, yearly eye exam Macrovascular complications: Yes--CAD, PVD Episodes of hypoglycemia: 1-2x/week Hypoglycemia awareness: yes Glucose at home: dexcom g7 CGM, not currently wearing because taken off for surgery Previous DM meds tried, and reason for discontinued use: Metformin 500 BID previously Current Home DM regimen: Ozempic 2 mg Empagliflozin 10 mg 50 insulin glargine 10 insulin lispro Levothyroxine 88 mcg Metformin 500 mg daily Vitals & Exam Temp: [36.2 ??C (97.1 ??F)-36.8 ??C (98.2 ??F)] 36.5 ??C (97.7 ??F) Pulse: [78-87] 81 BP: (113-126)/(62-88) 113/88 Resp: [16-18] 18 SpO2: [96 %-99 %] 99 % I/O this shift: In: 500 [P.O.:500] Out: - No tremor. Alert, oriented, and capable of rational thought. Playing cards. Data Medications, labs, imaging, and diagnostics independently reviewed in [facility] and commented on below. Lab Results Component Value Date TSH 0.69 10/29/2023 FREET4 1.38 10/29/2023 Lab Results Component Value Date CHOL 158 10/29/2023 TRIG 88 01/20/2024 HDL 49 (L) 06/25/2022 LDLCALC 91 01/13/2021 LDLDIRECT 92 10/29/2023 Lab Results Component Value Date PTH 71 06/25/2022 25HYDROVITD 40 01/13/2021 Lab Results Component Value Date HGBA1C 5.9 10/29/2023 Assessment & Plan # post-prandial hypoglycemia due to insulin-mealtime mismatch Fasting hypoglycemia due to improved insulin sensitivity. Type 2 Diabetes Mellitus, Diagnosis age 45 ycomplicated by post op stress and steroid use Current HbA1c and reliability: 5.9%, CKD, anemia HbA1c goal based on comorbidities: <7 Diabetes Provider: Dr. Bell Insurance: Payor: MEDICARE / Plan: MEDICARE PART A & B / Product Type: MEDICARE TRADITIONAL / Home regimen: Ozempic 2 mg Empagliflozin 10 mg 50 insulin glargine 10 insulin lispro TID with meals Levothyroxine 88 mcg Metformin 500 mg daily Morbid obesity Hypothyroid Amiodarone therapy Low bone density (T= -2.2) femoral neck Thickening of cecum 12 Dec 2023 with FU recommended. High after breakfast. Low after lunch. Looks like prandial insulin is being given up to 2 hours after meal onset and occasionally stacked with the next post meal insulin. Insulin should be given withthe meal. If in doubt, at most 30 minutes after initiation of eating. She has avoided colonoscopies. Hypoglycemia indicates improving insulin sensitivity as inflammation wanes and activity improves. Improved vascular flow and breathing during sleep might also help. Note that tonight she will receive~50% of her home dose of basal insulin. Recommendations: Insulin Basal Insulin: insulin glargine (Lantus) 24 units qHS (done) Mealtime/Bolus Insulin: insulin lispro (Humalog) 8 units TID AC; 4 units if only 50% of meal is eaten; 4 with snacks Correctional/Sliding-Scale Insulin: insulin lispro (Humalog) 2 units for every 50 mg glc/dl > 150 mg/dl, q 4 h OR PID AC, HS, 02:00 POC glucoses: TID AC, HS, 2AM when eating When NPO, continue insulin glargine (Lantus), hold mealtime insulin lispro (Humalog), change correctional (sliding scale) of insulin lispro (Humalog) and POC glucoses to Q4hr Diabetes education: [ ] please consult the inpatient diabetes nurse educator to meet with her IF the patient has severe hyperglycemia (>300), THEN use the hyperglycemia urgency order set (make NPO, give 5 units of IV regular insulin and 5 units lispro sub q, consider rehydration, re-check in 1 hour) ## Discharge Planning Rehab planned. Use ???Adult END Diabetes Discharge?? Order Set Retest thyroid axis on amiodarone and levothyroxine therapy. Consider re-image of cecal abnormality or GI evaluaton - Follow up with Dr. Bell on 03/02/24 at 11:40 AM as scheduled -- Cordell Roberts MD Endocrinology, Metabolism, & Lipid Research 35 min spent on 25 Jan 2024, the day of this encounter, in history, exam, extensive review, analysis, discussion, coordination of care and recommendations. Changes noted. * Plan of Care - Carmita Eden RN - 01/26/2024 1:29 AM CDT Goals: Clinical Goals for the Shift: hemodynamically stable, promote comfort and sleep, labs will trend toward normal values, pt will not fall Disintegrator Operator Patient Centered Goal for Treatment: safe discharge to home Problem: Skin Integrity Impairment Risk Goal: Mobility will improve Outcome: Progressing Flowsheets (Taken 01/26/2024126) Mobility will improve: Encourage mobilization to extent of ability, assist with range of motion as needed Encourage turning and repositioning, assist as needed Encourage ambulation Assess circulation, sensation and/or motion of extremity Collaborate with physical therapy Goal: Understanding of ways to prevent future skin breakdown will improve Outcome: Progressing Goal: Nutritional status will improve Outcome: Progressing Goal: Risk for impaired skin integrity will decrease Outcome: Progressing Problem: Lack of Knowledge Goal: Ability to develop a pain control plan will improve Outcome: Progressing Flowsheets (Taken 01/26/2024 012) Ability to develop a pain control plan will improve: Explain causes of pain and how long pain can be expected to last Educate pain scale for assessing level of pain Teach information regarding pain management Teach notification to healthcare provider of episodes of pain Problem: Medication Goal: Satisfaction with pain management medication regimen will improve Outcome: Progressing Problem: Sensory Goal: Ability to identify factors that increase pain levels will improve while working to decrease the patient's pain levels Outcome: Progressing Problem: Coping Goal: Ability to cope will improve Outcome: Progressing Problem: Health Behavior Goal: Identification of resources available to assist in meeting health care needs will improve Outcome: Progressing Problem: Discharge Planning Goal: Understanding discharge needs will improve Outcome: Progressing Problem: Lack of Knowledge Goal: Ability to describe self care measures that may prevent or decrease complications related to Type 1 Diabetes will improve Outcome: Progressing Goal: Ability to describe self care measures that may prevent or decrease complications related to Type 2 Diabetes will improve Outcome: Progressing Problem: Health Nutrition Goal: Nutritional intake and knowledge related to Diabetes will improve Outcome: Progressing Problem: Neurosensory Goal: Achieves stable or improved neurological status Outcome: Progressing Goal: Achieves maximal functionality and self care Outcome: Progressing Problem: Respiratory Goal: Achieves optimal ventilation and oxygenation Outcome: Progressing Goal: Ability to maintain a clear airway will improve Outcome: Progressing Goal: Mechanical Ventilation will be safely managed Outcome: Progressing Problem: Cardiovascular Goal: Maintains optimal cardiac output and hemodynamic stability Outcome: Progressing Flowsheets (Taken 01/26/2024126) Maintain optimal cardiac output and hemodynamic Stability: Monitor vital signs, rhythm, and trends Monitor for bleeding, hypotension and signs of decreased cardiac output Administer and titrate ordered vasoactive medications to optimize hemodynamic stability Monitor arterial and/or venous puncture sites for bleeding and/or hematoma Assess quality of pulses, skin color and temperature Assess for signs of decreased coronary artery perfusion - ex. angina Monitor urine output and notify provider of values outside normal range Administer fluid and/or volume expanders as ordered Goal: Absence of cardiac dysrhythmias or at baseline Outcome: Progressing Flowsheets (Taken 01/26/2024126) Absence of cardiac dysrhythmias or at baseline: Continuous cardiac monitoring, monitor vital signs, obtain 12 lead EKG if indicated Administer antiarrhythmic and heart rate control medications as ordered Initiate emergency measures for life threatening arrhythmias Monitor electrolytes and administer replacement therapy as ordered Goal: Cardiovascular status will improve Outcome: Progressing Flowsheets (Taken 01/26/2024126) Cardiovascular status will improve: Monitor for signs and symptoms of chest pain Monitor signs and symptoms of heart failure Collaborate with cardiac rehabilitation or related activity programs Instruct immediate reporting of any chest discomfort or pain Monitor electrocardiogram Problem: Skin/Tissue Integrity Goal: Skin integrity remains intact Outcome: Progressing Goal: Incisions, wounds, or drain sites healing without S/S of infection Outcome: Progressing Goal: Oral mucous membranes remain intact Description: Outcome: Progressing Problem: Musculoskeletal Goal: Return mobility to safest level of function Outcome: Progressing Flowsheets (Taken 01/26/2024126) Return mobility to safest level of function: Assist with transfers and ambulation using safe patient handling equipment as needed Ensure adequate protection for wounds/incisions during mobilization Obtain PT/OT consults as needed Instruct patient/family in ordered activity level Goal: Maintain proper alignment of affected body part Outcome: Progressing Goal: Return ADL status to a safe level of function Outcome: Progressing Goal: Ability to perform activities at highest level will improve Outcome: Progressing Goal: Mobility, ROM and muscle strength will improve Outcome: Progressing Problem: Gastrointestinal Goal: Minimal or absence of nausea and vomiting Outcome: Progressing Goal: Maintains or returns to baseline bowel function Outcome: Progressing Goal: Maintains adequate nutritional intake Outcome: Progressing Goal: Will show no signs and symptoms of gastrointestinal bleeding Outcome: Progressing Problem: Genitourinary Goal: Absence of urinary retention Outcome: Progressing Goal: Urinary catheter remains patent Outcome: Progressing Problem: Infection Goal: Absence of infection during hospitalization Outcome: Progressing Goal: Absence of fever/infection during anticipated neutropenic period Outcome: Progressing Problem: Metabolic/Fluid and Electrolytes Goal: Electrolytes maintained within normal limits Outcome: Progressing Flowsheets (Taken 01/26/2024126) Electrolytes maintained within normal limits: Monitor labs and assess patient for signs and symptoms of electrolyte imbalances Administer electrolyte replacement as ordered Monitor response to electrolyte replacements, including repeat lab results as appropriate Fluid restriction as ordered Instruct patient on fluid and nutrition restrictions as appropriate Provide fluid volume management Goal: Hemodynamic stability and optimal renal function maintained Outcome: Progressing Flowsheets (Taken 01/26/2024126) Hemodynamic stability and optimal renal function maintained: Monitor labs and assess for signs and symptoms of volume excess or deficit Monitor intake, output and patient weight Monitor urine specific gravity, serum osmolarity and serum sodium as indicated or ordered Monitor response to interventions for patient's volume status, including labs, urine output, blood pressure (other measures as available) Encourage oral intake as appropriate Manage intravenous fluids Instruct patient on fluid and nutrition restrictions as appropriate Goal: Glucose maintained within prescribed range Outcome: Progressing Flowsheets (Taken 01/26/2024126) Glucose maintained within prescribed range: Assess for signs and symptoms of hyperglycemia and hypoglycemia, monitor glucose as ordered Administer ordered medications to maintain glucose within target range Assess barriers to adequate nutritional intake and initiate nutrition consult as needed Instruct patient on self management of diabetes and initiate consult as needed Problem: Hematologic Goal: Maintains hematologic stability Outcome: Progressing Problem: Fall Risk Goal: Ability to state ways to decrease the risk of falls will improve Outcome: Progressing Flowsheets (Taken 01/26/2024126) Ability to state ways to decrease the risk of falls will improve: Teach fall prevention measures Teach information regarding appropriate enviornmental changes Goal: Will remain free from falls Outcome: Progressing Flowsheets (Taken 01/26/2024 0127) Will remain free from falls: Assess risk factors for falls Implement fall prevention measures Collaborate with other disciplines Goal: Will remain free from injury from falls Outcome: Progressing Flowsheets (Taken 01/26/2024 0127) Will remain free from injury from falls: Provide safe environment for conduction of activities of daily living in hospital environment * Assessment & Plan Note - Marisela Russell NP - 01/25/2024 12:51 PM CDT Associated Problem(s): AF (paroxysmal atrial fibrillation) (CMS/HCC) (HCC) Short episode of AF with RVR 01/24 - converted with 1 amio bolus and then placed on drip at 1 mg DCd amio gtt and started po amiod load Qtc today 491 Today NSR 83 Cont tele No need for anticoagulation unless recurrent and sustained. * Consults, Subsequent - Cordell Roberts MD - 01/25/2024 12:46 PM CDT Images from the original note were not included. Endocrinology & Diabetes Inpatient Subsequent Consult Note Patient: Isabelle Lutz, 73 y.o. female (: 1950) Room: [place] [address] [address] ( ) LOS: 5 Isabelle Lutz is a 73 y.o. female with PMH significant for hypothyroidism, osteoporosis, CAD, PVD, CKD, HTN, HLD and T2DM who presented to the hospital for planned CABG (now s/p 3 vessel CABG, [place], 01/20/24). The Endocrinology/Diabetes Service is being consulted for inpatient blood glucose management and discharge planning recommendations during this hospitalization. Interval Events & Subjective Hypoglycemic after lunch yesterday and today. Breakfast insulin not given until 10 AM Some limited activity and ambulation. Diet: Adult Diet Restricted; Low Fat, Low Chol; Consistent Carbohydrate Recent Labs Lab Units 01/25/24 1110 01/25/24 0828 01/25/24 0202 01/24/24201201/24/24 1927 01/24/24 1626 01/24/24 1227 01/24/24 0732 01/24/24 0143 01/23/24 2231 GLUCOSE mg/dL -- -- -- 140 -- -- -- -- -- 242* POC GLUCOSE MONITOR mg/dL 221* 124 109 -- 161 97 125 143 194 -- Some history was reiterated: Gulshan 21 Jan 2024 Type of DM: type 2 diabetes mellitus Diagnosed 28 years ago Weight at diagnosis: 120-130 lb Heaviest weight: 150-160 lb Weight at age 17yo: 120-130 lb Last A1c:5.9%; reliability: CKD, anemia Managed by PMD or [employer] [facility] S[facility] Dr. Bell Hx of DKA/HHS/Hospitalizations for hypoglycemia: no Hx of pancreatitis/MEN/medullary thyroid CA: no Family History: mother with T1DM, brother, sister with T2DM Reports no recent changes in weight, polydipsia, polyuria, dysuria, abdominal pain, nausea or vomiting. Microvascular complications: Nephropathy; not present from diabetes (albumin/Cr not elevated), but does have Neuropathy; yes, present--decreased vibratory sensation Retinopathy; not present, yearly eye exam Macrovascular complications: Yes--CAD, PVD Episodes of hypoglycemia: 1-2x/week Hypoglycemia awareness: yes Glucose at home: dexcom g7 CGM, not currently wearing because taken off for surgery Previous DM meds tried, and reason for discontinued use: Metformin 500 BID previously Current Home DM regimen: Ozempic 2 mg Empagliflozin 10 mg 50 insulin glargine 10 insulin lispro Levothyroxine 88 mcg Metformin 500 mg daily Vitals & Exam Temp: [36.5 ??C (97.7 ??F)-37 ??C (98.6 ??F)] 36.5 ??C (97.7 ??F) Pulse: [72-172] 72 BP: (92-124)/(46-74) 120/61 Resp: [18-20] 18 SpO2: [98 %-100 %] 100 % No intake/output data recorded. No tremor. Alert, oriented, and capable of rational thought. Data Medications, labs, imaging, and diagnostics independently reviewed in Epic and commented on below. Lab Results Component Value Date TSH 0.69 10/29/2023 FREET4 1.38 10/29/2023 Lab Results Component Value Date CHOL 158 10/29/2023 TRIG 88 01/20/2024 HDL 49 (L) 06/25/2022 LDLCALC 91 01/13/2021 LDLDIRECT 92 10/29/2023 Lab Results Component Value Date PTH 71 06/25/2022 25HYDROVITD 40 01/13/2021 Lab Results Component Value Date HGBA1C 5.9 10/29/2023 Assessment & Plan # post-prandial hypoglycemia due to insulin-mealtime mismatch Type 2 Diabetes Mellitus, Controlled, complicated by post op stress and steroid use Current HbA1c and reliability: 5.9%, CKD, anemia HbA1c goal based on comorbidities: <7 Diabetes Provider: Dr. Bell Insurance: Payor: MEDICARE / Plan: MEDICARE PART A & B / Product Type: MEDICARE TRADITIONAL / Home regimen: Ozempic 2 mg Empagliflozin 10 mg 50 insulin glargine 10 insulin lispro TID with meals Levothyroxine 88 mcg Metformin 500 mg daily Morbid obesity Hypothyroid Amiodarone therapy Low bone density (T= -2.2) femoral neck Thickening of cecum 12 Dec 2023 with FU recommended. High after breakfast. Low after lunch. Looks like prandial insulin is being given up to 2 hours after meal onset and occasionally stacked with the next post meal insulin. Insulin should be given withthe meal. If in doubt, at most 30 minutes after initiation of eating. She has avoided colonoscopies. Discussed knee-friendly exercise that might be used in cardiac rehab. Recommendations: Insulin Basal Insulin: insulin glargine (Lantus) 24 units qHS (done) Mealtime/Bolus Insulin: insulin lispro (Humalog) 8 units TID AC; 4 units if only 50% of meal is eaten; 4 with snacks Correctional/Sliding-Scale Insulin: insulin lispro (Humalog) 2 units for every 50 mg glc/dl > 150 mg/dl, q 4 h OR PID AC, HS, 02:00 POC glucoses: TID AC, HS, 2AM when eating When NPO, continue insulin glargine (Lantus), hold mealtime insulin lispro (Humalog), change correctional (sliding scale) of insulin lispro (Humalog) and POC glucoses to Q4hr Diabetes education: [ ] please consult the inpatient diabetes nurse educator to meet with her IF the patient has severe hyperglycemia (>300), THEN use the hyperglycemia urgency order set (make NPO, give 5 units of IV regular insulin and 5 units lispro sub q, consider rehydration, re-check in 1 hour) ## Discharge Planning Rehab planned. Use ???Adult END Diabetes Discharge?? Order Set Retest thyroid axis on amiodarone and levothyroxine therapy. Consider re-image of cecal abnormality or GI evaluaton - Follow up with Dr. Bell on 03/02/24 at 11:40 AM as scheduled -- Cordell Roberts MD Endocrinology, Metabolism, & Lipid Research 35 min spent on 25 Jan 2024, the day of this encounter, in history, exam, extensive review, analysis, discussion, coordination of care and recommendations. Changes noted. * Plan of Care - Mega Wharton RN - 01/25/2024 11:32 AM CDT Problem: Skin Integrity Impairment Risk Goal: Mobility will improve Outcome: Progressing Goal: Understanding of ways to prevent future skin breakdown will improve Outcome: Progressing Goal: Nutritional status will improve Outcome: Progressing Goal: Risk for impaired skin integrity will decrease Outcome: Progressing Problem: Lack of Knowledge Goal: Ability to develop a pain control plan will improve Outcome: Progressing Problem: Medication Goal: Satisfaction with pain management medication regimen will improve Outcome: Progressing Problem: Sensory Goal: Ability to identify factors that increase pain levels will improve while working to decrease the patient's pain levels Outcome: Progressing Problem: Coping Goal: Ability to cope will improve Outcome: Progressing Problem: Health Behavior Goal: Identification of resources available to assist in meeting health care needs will improve Outcome: Progressing Problem: Discharge Planning Goal: Understanding discharge needs will improve Outcome: Progressing Problem: Lack of Knowledge Goal: Ability to describe self care measures that may prevent or decrease complications related to Type 1 Diabetes will improve Outcome: Progressing Goal: Ability to describe self care measures that may prevent or decrease complications related to Type 2 Diabetes will improve Outcome: Progressing Problem: Health Nutrition Goal: Nutritional intake and knowledge related to Diabetes will improve Outcome: Progressing Problem: Neurosensory Goal: Achieves stable or improved neurological status Outcome: Progressing Goal: Achieves maximal functionality and self care Outcome: Progressing Problem: Respiratory Goal: Achieves optimal ventilation and oxygenation Outcome: Progressing Goal: Ability to maintain a clear airway will improve Outcome: Progressing Goal: Mechanical Ventilation will be safely managed Outcome: Progressing Problem: Cardiovascular Goal: Maintains optimal cardiac output and hemodynamic stability Outcome: Progressing Goal: Absence of cardiac dysrhythmias or at baseline Outcome: Progressing Goal: Cardiovascular status will improve Outcome: Progressing Problem: Skin/Tissue Integrity Goal: Skin integrity remains intact Outcome: Progressing Goal: Incisions, wounds, or drain sites healing without S/S of infection Outcome: Progressing Goal: Oral mucous membranes remain intact Description: Outcome: Progressing Problem: Musculoskeletal Goal: Return mobility to safest level of function Outcome: Progressing Goal: Maintain proper alignment of affected body part Outcome: Progressing Goal: Return ADL status to a safe level of function Outcome: Progressing Goal: Ability to perform activities at highest level will improve Outcome: Progressing Goal: Mobility, ROM and muscle strength will improve Outcome: Progressing Problem: Gastrointestinal Goal: Minimal or absence of nausea and vomiting Outcome: Progressing Goal: Maintains or returns to baseline bowel function Outcome: Progressing Goal: Maintains adequate nutritional intake Outcome: Progressing Goal: Will show no signs and symptoms of gastrointestinal bleeding Outcome: Progressing Problem: Genitourinary Goal: Absence of urinary retention Outcome: Progressing Goal: Urinary catheter remains patent Outcome: Progressing Problem: Infection Goal: Absence of infection during hospitalization Outcome: Progressing Goal: Absence of fever/infection during anticipated neutropenic period Outcome: Progressing Problem: Metabolic/Fluid and Electrolytes Goal: Electrolytes maintained within normal limits Outcome: Progressing Goal: Hemodynamic stability and optimal renal function maintained Outcome: Progressing Goal: Glucose maintained within prescribed range Outcome: Progressing Problem: Hematologic Goal: Maintains hematologic stability Outcome: Progressing Problem: Fall Risk Goal: Ability to state ways to decrease the risk of falls will improve Outcome: Progressing Goal: Will remain free from falls Outcome: Progressing Goal: Will remain free from injury from falls Outcome: Progressing * Plan of Care - Sonia Pineda RN - 01/25/2024 4:43 AM CDT Problem: Skin Integrity Impairment Risk Goal: Mobility will improve Outcome: Progressing Goal: Understanding of ways to prevent future skin breakdown will improve Outcome: Progressing Goal: Nutritional status will improve Outcome: Progressing Goal: Risk for impaired skin integrity will decrease Outcome: Progressing Problem: Lack of Knowledge Goal: Ability to develop a pain control plan will improve Outcome: Progressing Problem: Medication Goal: Satisfaction with pain management medication regimen will improve Outcome: Progressing Problem: Sensory Goal: Ability to identify factors that increase pain levels will improve while working to decrease the patient's pain levels Outcome: Progressing Problem: Coping Goal: Ability to cope will improve Outcome: Progressing Problem: Health Behavior Goal: Identification of resources available to assist in meeting health care needs will improve Outcome: Progressing Problem: Discharge Planning Goal: Understanding discharge needs will improve Outcome: Progressing Problem: Lack of Knowledge Goal: Ability to describe self care measures that may prevent or decrease complications related to Type 1 Diabetes will improve Outcome: Progressing Goal: Ability to describe self care measures that may prevent or decrease complications related to Type 2 Diabetes will improve Outcome: Progressing Problem: Health Nutrition Goal: Nutritional intake and knowledge related to Diabetes will improve Outcome: Progressing Problem: Neurosensory Goal: Achieves stable or improved neurological status Outcome: Progressing Goal: Achieves maximal functionality and self care Outcome: Progressing Problem: Respiratory Goal: Achieves optimal ventilation and oxygenation Outcome: Progressing Goal: Ability to maintain a clear airway will improve Outcome: Progressing Goal: Mechanical Ventilation will be safely managed Outcome: Progressing Problem: Cardiovascular Goal: Maintains optimal cardiac output and hemodynamic stability Outcome: Progressing Goal: Absence of cardiac dysrhythmias or at baseline Outcome: Progressing Goal: Cardiovascular status will improve Outcome: Progressing Problem: Skin/Tissue Integrity Goal: Skin integrity remains intact Outcome: Progressing Goal: Incisions, wounds, or drain sites healing without S/S of infection Outcome: Progressing Goal: Oral mucous membranes remain intact Description: Outcome: Progressing Problem: Musculoskeletal Goal: Return mobility to safest level of function Outcome: Progressing Goal: Maintain proper alignment of affected body part Outcome: Progressing Goal: Return ADL status to a safe level of function Outcome: Progressing Goal: Ability to perform activities at highest level will improve Outcome: Progressing Goal: Mobility, ROM and muscle strength will improve Outcome: Progressing Problem: Gastrointestinal Goal: Minimal or absence of nausea and vomiting Outcome: Progressing Goal: Maintains or returns to baseline bowel function Outcome: Progressing Goal: Maintains adequate nutritional intake Outcome: Progressing Goal: Will show no signs and symptoms of gastrointestinal bleeding Outcome: Progressing Problem: Genitourinary Goal: Absence of urinary retention Outcome: Progressing Goal: Urinary catheter remains patent Outcome: Progressing Problem: Infection Goal: Absence of infection during hospitalization Outcome: Progressing Goal: Absence of fever/infection during anticipated neutropenic period Outcome: Progressing Problem: Metabolic/Fluid and Electrolytes Goal: Electrolytes maintained within normal limits Outcome: Progressing Goal: Hemodynamic stability and optimal renal function maintained Outcome: Progressing Goal: Glucose maintained within prescribed range Outcome: Progressing Problem: Hematologic Goal: Maintains hematologic stability Outcome: Progressing Problem: Fall Risk Goal: Ability to state ways to decrease the risk of falls will improve Outcome: Progressing Goal: Will remain free from falls Outcome: Progressing Goal: Will remain free from injury from falls Outcome: Progressing Goals: Clinical Goals for the Shift: VSS, promote comfort and safety, monitor labs, sleep hygiene Disintegrator Operator Patient Centered Goal for Treatment: Return to home Summary: VSS, comfort and safety maintained, labs monitored. * Plan of Care - Mega Wharton RN - 01/24/2024 4:36 PM CDT Problem: Skin Integrity Impairment Risk Goal: Mobility will improve Outcome: Progressing Goal: Understanding of ways to prevent future skin breakdown will improve Outcome: Progressing Goal: Nutritional status will improve Outcome: Progressing Goal: Risk for impaired skin integrity will decrease Outcome: Progressing Problem: Lack of Knowledge Goal: Ability to develop a pain control plan will improve Outcome: Progressing Problem: Medication Goal: Satisfaction with pain management medication regimen will improve Outcome: Progressing Problem: Sensory Goal: Ability to identify factors that increase pain levels will improve while working to decrease the patient's pain levels Outcome: Progressing Problem: Coping Goal: Ability to cope will improve Outcome: Progressing Problem: Health Behavior Goal: Identification of resources available to assist in meeting health care needs will improve Outcome: Progressing Problem: Discharge Planning Goal: Understanding discharge needs will improve Outcome: Progressing Problem: Lack of Knowledge Goal: Ability to describe self care measures that may prevent or decrease complications related to Type 1 Diabetes will improve Outcome: Progressing Goal: Ability to describe self care measures that may prevent or decrease complications related to Type 2 Diabetes will improve Outcome: Progressing Problem: Health Nutrition Goal: Nutritional intake and knowledge related to Diabetes will improve Outcome: Progressing Problem: Neurosensory Goal: Achieves stable or improved neurological status Outcome: Progressing Goal: Achieves maximal functionality and self care Outcome: Progressing Problem: Respiratory Goal: Achieves optimal ventilation and oxygenation Outcome: Progressing Goal: Ability to maintain a clear airway will improve Outcome: Progressing Goal: Mechanical Ventilation will be safely managed Outcome: Progressing Problem: Cardiovascular Goal: Maintains optimal cardiac output and hemodynamic stability Outcome: Progressing Goal: Absence of cardiac dysrhythmias or at baseline Outcome: Progressing Goal: Cardiovascular status will improve Outcome: Progressing Problem: Skin/Tissue Integrity Goal: Skin integrity remains intact Outcome: Progressing Goal: Incisions, wounds, or drain sites healing without S/S of infection Outcome: Progressing Goal: Oral mucous membranes remain intact Description: Outcome: Progressing Problem: Musculoskeletal Goal: Return mobility to safest level of function Outcome: Progressing Goal: Maintain proper alignment of affected body part Outcome: Progressing Goal: Return ADL status to a safe level of function Outcome: Progressing Goal: Ability to perform activities at highest level will improve Outcome: Progressing Goal: Mobility, ROM and muscle strength will improve Outcome: Progressing Problem: Gastrointestinal Goal: Minimal or absence of nausea and vomiting Outcome: Progressing Goal: Maintains or returns to baseline bowel function Outcome: Progressing Goal: Maintains adequate nutritional intake Outcome: Progressing Goal: Will show no signs and symptoms of gastrointestinal bleeding Outcome: Progressing Problem: Genitourinary Goal: Absence of urinary retention Outcome: Progressing Goal: Urinary catheter remains patent Outcome: Progressing Problem: Infection Goal: Absence of infection during hospitalization Outcome: Progressing Goal: Absence of fever/infection during anticipated neutropenic period Outcome: Progressing Problem: Metabolic/Fluid and Electrolytes Goal: Electrolytes maintained within normal limits Outcome: Progressing Goal: Hemodynamic stability and optimal renal function maintained Outcome: Progressing Goal: Glucose maintained within prescribed range Outcome: Progressing Problem: Hematologic Goal: Maintains hematologic stability Outcome: Progressing Problem: Fall Risk Goal: Ability to state ways to decrease the risk of falls will improve Outcome: Progressing Goal: Will remain free from falls Outcome: Progressing Goal: Will remain free from injury from falls Outcome: Progressing * Assessment & Plan Note - Nii Garces NP - 01/24/2024 12:38 PM CDT Associated Problem(s): DM2 (diabetes mellitus, type 2) ([facility]) - Hemoglobin A1c 5.9 % on admission - consistent carb diet - continue basal bolus SSI with post prandial coverage Endocrine following. Continues to have labile BS- again dropped to 73, have adjusted insulins Holding her discharge to [facility] today due to hypoglycemic episodes, plan for d/c tomorrow if bed available * Consults, Subsequent - Leeanne Lincoln NP - 01/24/2024 11:38 AM CDT Endocrinology & Diabetes Inpatient Subsequent Consult Note Patient: Isabelle Lutz, 73 y.o. female (: 1950) Room: [place] [address] ( ) LOS: 4 Isabelle Lutz is a 73 y.o. female with PMH significant for hypothyroidism, osteoporosis, CAD, PVD, CKD, HTN, HLD and T2DM who presented to the hospital for planned CABG (now s/p 3 vessel CABG, [place], 01/20/24). The Endocrinology/Diabetes Service is being consulted for inpatient blood glucose management and discharge planning recommendations during this hospitalization. Interval Events & Subjective There were no acute events overnight. Ms. Lutz is sitting up in the chair with her daughter at thebedside. She reports an improved appetite, feeling better overall. Diet: Adult Diet Restricted; Low Fat, Low Chol; Consistent Carbohydrate Blood glucose over previous 24 hours with high variability with range of 56-272 mg/dl. Fasting blood glucose this morning was 143 mg/dl Total daily dose of insulin was 61 units Basal Dose: 32 units Bolus Dose: 29 units Target inpatient blood glucose is 100-200 mg/dl Recent Labs Lab Units 01/24/24 0732 01/24/24 0143 01/23/24 2231 01/23/24 1957 01/23/24 1759 01/23/24 1736 01/23/24 1709 01/23/24 1134 01/23/24 0739 01/23/24 0216 GLUCOSE mg/dL -- -- 242* -- -- -- -- -- -- -- POC GLUCOSE MONITOR mg/dL 143 194 -- 272* 142 97 56* 217* 152 141 Vitals & Exam Temp: [36.5 ??C (97.7 ??F)-37 ??C (98.6 ??F)] 37 ??C (98.6 ??F) Pulse: [85-88] 88 BP: (119-123)/(65-68) 120/65 Resp: [18] 18 SpO2: [95 %-98 %] 98 % I/O this shift: In: 500 [P.O.:500] Out: - Physical Exam Gen : pleasant 73 year old female sitting quietly in chair in no acute distress, alert, appropriate, cooperative, appears stated age, well-developed, well- nourished; visitor at bedside HENT : normocephalic, atraumatic, moist mucus membranes Eyes : conjunctiva clear, anicteric Pulm : non-labored, on room air Extr : atraumatic, no cyanosis/clubbing/edema Skin : turgor normal, no rashes/wounds/lesions, chest tube Neuro : alert, speech fluent, comprehension intact, moving all extremities Psych : cooperative, appropriate affect & mood, good insight & judgment Data Medications, labs, imaging, and diagnostics independently reviewed in Epic and commented on below. Lab Results Component Value Date TSH 0.69 10/29/2023 FREET4 1.38 10/29/2023 Lab Results Component Value Date CHOL 158 10/29/2023 TRIG 88 01/20/2024 HDL 49 (L) 06/25/2022 LDLCALC 91 01/13/2021 LDLDIRECT 92 10/29/2023 Lab Results Component Value Date PTH 71 06/25/2022 25HYDROVITD 40 01/13/2021 Lab Results Component Value Date HGBA1C 5.9 10/29/2023 Assessment & Plan # Type 2 Diabetes Mellitus, Controlled, complicated by post op stress and steroid use Current HbA1c and reliability: 5.9%, CKD, anemia HbA1c goal based on comorbidities: <7 Diabetes Provider: Dr. Bell Insurance: Payor: MEDICARE / Plan: MEDICARE PART A & B / Product Type: MEDICARE TRADITIONAL / Home regimen: Ozempic 2 mg Empagliflozin 10 mg 50 insulin glargine 10 insulin lispro TID with meals Levothyroxine 88 mcg Metformin 500 mg daily Inpatient glycemic control is complicated by variable oral intake, stress. High variability in glucose readings throughout the day, FBG stable. Will continue to closely monitor sugars today and adjust accordingly. Recommendations: Basal Insulin: - glargine 32 units qHS Mealtime/Bolus Insulin: - lispro 8 units TID PC Correctional/Sliding-Scale Insulin: - resistant correctional lispro TID AC, HS, 2 am - POC glucoses TID AC, HS, 2AM when eating - Consistent carb diet when eating; no juices, no regular soda - When NPO, continue glargine, hold mealtime lispro, change correctional (sliding scale) lispro andPOC glucoses to Q4hr - If she has severe hyperglycemia (>300), use the hyperglycemia urgency order set (make NPO, IV insulin, re-check in 1 hour) > The biological half-life of IV insulin is ~40 minutes; it's safer than giving multiple doses of subQ insulin (can last ~4 hours & builds up if given repeatedly). ## Discharge Planning Use ???Adult END Diabetes Discharge?? Order Set - Follow up with Dr. Bell on 03/02/24 at 11:40 AM as scheduled -- Leeanne Lnicoln NP Endocrinology, Metabolism, & Lipid Research Contact Info: [facility] Endocrinology Diabetes Consults: [phone] General Endocrine (Non-Diabetes): [phone] Treatment Teams: [facility] Endocrinology Diabetes 1: Fellow + Attending [facility] Endocrinology Diabetes 2: Vanita Ware NP at [phone] [facility] Endocrinology Diabetes 3: Marcia Irvin NP at [phone] [facility] Endocrinology Diabetes 4: Jacki Patel NP (/) at [phone] or Leeanne Lincoln NP (//) at [phone] Diabetes After-Hours & Weekends: Diabetes Fellow [phone] or [phone] * Plan of Care - Sonia Pineda RN - 01/24/2024 3:31 AM CDT Problem: Skin Integrity Impairment Risk Goal: Mobility will improve Outcome: Progressing Goal: Understanding of ways to prevent future skin breakdown will improve Outcome: Progressing Goal: Nutritional status will improve Outcome: Progressing Goal: Risk for impaired skin integrity will decrease Outcome: Progressing Problem: Lack of Knowledge Goal: Ability to develop a pain control plan will improve Outcome: Progressing Problem: Medication Goal: Satisfaction with pain management medication regimen will improve Outcome: Progressing Problem: Sensory Goal: Ability to identify factors that increase pain levels will improve while working to decrease the patient's pain levels Outcome: Progressing Problem: Coping Goal: Ability to cope will improve Outcome: Progressing Problem: Health Behavior Goal: Identification of resources available to assist in meeting health care needs will improve Outcome: Progressing Problem: Discharge Planning Goal: Understanding discharge needs will improve Outcome: Progressing Problem: Lack of Knowledge Goal: Ability to describe self care measures that may prevent or decrease complications related to Type 1 Diabetes will improve Outcome: Progressing Goal: Ability to describe self care measures that may prevent or decrease complications related to Type 2 Diabetes will improve Outcome: Progressing Problem: Health Nutrition Goal: Nutritional intake and knowledge related to Diabetes will improve Outcome: Progressing Problem: Neurosensory Goal: Achieves stable or improved neurological status Outcome: Progressing Goal: Achieves maximal functionality and self care Outcome: Progressing Problem: Respiratory Goal: Achieves optimal ventilation and oxygenation Outcome: Progressing Goal: Ability to maintain a clear airway will improve Outcome: Progressing Goal: Mechanical Ventilation will be safely managed Outcome: Progressing Problem: Cardiovascular Goal: Maintains optimal cardiac output and hemodynamic stability Outcome: Progressing Goal: Absence of cardiac dysrhythmias or at baseline Outcome: Progressing Goal: Cardiovascular status will improve Outcome: Progressing Problem: Skin/Tissue Integrity Goal: Skin integrity remains intact Outcome: Progressing Goal: Incisions, wounds, or drain sites healing without S/S of infection Outcome: Progressing Goal: Oral mucous membranes remain intact Description: Outcome: Progressing Problem: Musculoskeletal Goal: Return mobility to safest level of function Outcome: Progressing Goal: Maintain proper alignment of affected body part Outcome: Progressing Goal: Return ADL status to a safe level of function Outcome: Progressing Goal: Ability to perform activities at highest level will improve Outcome: Progressing Goal: Mobility, ROM and muscle strength will improve Outcome: Progressing Problem: Gastrointestinal Goal: Minimal or absence of nausea and vomiting Outcome: Progressing Goal: Maintains or returns to baseline bowel function Outcome: Progressing Goal: Maintains adequate nutritional intake Outcome: Progressing Goal: Will show no signs and symptoms of gastrointestinal bleeding Outcome: Progressing Problem: Genitourinary Goal: Absence of urinary retention Outcome: Progressing Goal: Urinary catheter remains patent Outcome: Progressing Problem: Infection Goal: Absence of infection during hospitalization Outcome: Progressing Goal: Absence of fever/infection during anticipated neutropenic period Outcome: Progressing Problem: Metabolic/Fluid and Electrolytes Goal: Electrolytes maintained within normal limits Outcome: Progressing Goal: Hemodynamic stability and optimal renal function maintained Outcome: Progressing Goal: Glucose maintained within prescribed range Outcome: Progressing Problem: Hematologic Goal: Maintains hematologic stability Outcome: Progressing Problem: Fall Risk Goal: Ability to state ways to decrease the risk of falls will improve Outcome: Progressing Goal: Will remain free from falls Outcome: Progressing Goal: Will remain free from injury from falls Outcome: Progressing Goals: Clinical Goals for the Shift: VSS, pain control, bs management, maintain comfort and safety Halfway Patient Centered Goal for Treatment: Return to home Summary: VSS, had multiple BMs, pain controlled with current regimen. * Plan of Eduard Hoffmann - 01/23/2024 6:18 PM CDT Goals: Clinical Goals for the Shift: VSS, pain control, safety throughout shift Halfway Patient Centered Goal for Treatment: Return to home Summary: Problem: Skin Integrity Impairment Risk Goal: Mobility will improve Outcome: Progressing Goal: Understanding of ways to prevent future skin breakdown will improve Outcome: Progressing Goal: Nutritional status will improve Outcome: Progressing Goal: Risk for impaired skin integrity will decrease Outcome: Progressing Problem: Lack of Knowledge Goal: Ability to develop a pain control plan will improve Outcome: Progressing Problem: Medication Goal: Satisfaction with pain management medication regimen will improve Outcome: Progressing Problem: Sensory Goal: Ability to identify factors that increase pain levels will improve while working to decrease the patient's pain levels Outcome: Progressing Problem: Coping Goal: Ability to cope will improve Outcome: Progressing Problem: Health Behavior Goal: Identification of resources available to assist in meeting health care needs will improve Outcome: Progressing Problem: Discharge Planning Goal: Understanding discharge needs will improve Outcome: Progressing Problem: Lack of Knowledge Goal: Ability to describe self care measures that may prevent or decrease complications related to Type 1 Diabetes will improve Outcome: Progressing Goal: Ability to describe self care measures that may prevent or decrease complications related to Type 2 Diabetes will improve Outcome: Progressing Problem: Health Nutrition Goal: Nutritional intake and knowledge related to Diabetes will improve Outcome: Progressing Problem: Neurosensory Goal: Achieves stable or improved neurological status Outcome: Progressing Goal: Achieves maximal functionality and self care Outcome: Progressing Problem: Respiratory Goal: Achieves optimal ventilation and oxygenation Outcome: Progressing Goal: Ability to maintain a clear airway will improve Outcome: Progressing Goal: Mechanical Ventilation will be safely managed Outcome: Progressing Problem: Cardiovascular Goal: Maintains optimal cardiac output and hemodynamic stability Outcome: Progressing Goal: Absence of cardiac dysrhythmias or at baseline Outcome: Progressing Goal: Cardiovascular status will improve Outcome: Progressing Problem: Skin/Tissue Integrity Goal: Skin integrity remains intact Outcome: Progressing Goal: Incisions, wounds, or drain sites healing without S/S of infection Outcome: Progressing Goal: Oral mucous membranes remain intact Description: Outcome: Progressing Problem: Musculoskeletal Goal: Return mobility to safest level of function Outcome: Progressing Goal: Maintain proper alignment of affected body part Outcome: Progressing Goal: Return ADL status to a safe level of function Outcome: Progressing Goal: Ability to perform activities at highest level will improve Outcome: Progressing Goal: Mobility, ROM and muscle strength will improve Outcome: Progressing Problem: Gastrointestinal Goal: Minimal or absence of nausea and vomiting Outcome: Progressing Goal: Maintains or returns to baseline bowel function Outcome: Progressing Goal: Maintains adequate nutritional intake Outcome: Progressing Goal: Will show no signs and symptoms of gastrointestinal bleeding Outcome: Progressing Problem: Genitourinary Goal: Absence of urinary retention Outcome: Progressing Goal: Urinary catheter remains patent Outcome: Progressing Problem: Infection Goal: Absence of infection during hospitalization Outcome: Progressing Goal: Absence of fever/infection during anticipated neutropenic period Outcome: Progressing Problem: Metabolic/Fluid and Electrolytes Goal: Electrolytes maintained within normal limits Outcome: Progressing Goal: Hemodynamic stability and optimal renal function maintained Outcome: Progressing Goal: Glucose maintained within prescribed range Outcome: Progressing Problem: Hematologic Goal: Maintains hematologic stability Outcome: Progressing Problem: Fall Risk Goal: Ability to state ways to decrease the risk of falls will improve Outcome: Progressing Goal: Will remain free from falls Outcome: Progressing Goal: Will remain free from injury from falls Outcome: Progressing * Hospital Course - Nii Garces NP - 01/23/2024 5:42 PM CDT 73 y.o. yo female w/ PMHx of HTN, HLD< CAD, mild MR, anemia, CKD, DM type II ( Hgb A1c 5.9), hypothyroidism, and chronic knee pain. He was found to have multivessel diease on [facility] and is being seenby CTS for CABG evaluation. Ms. Isabelle Lutz was taken to the operating room on 01/20/2024 for CABG x3 by Stan Fisher MD. The patient was taken to the intensive care unit postoperatively in stable condition. When hemodynamically stable, she was weaned from ventilatory and inotropic support. The patient was transferred to the stepdown unit in stable condition on 01/21/2024. Chest tubes and pacing wires were discontinued without difficulty. The patient progressed as expected. Aggressive physical therapy and pulmonary toilet were initiated, diet was advanced as tolerated, and wounds remained clean, dry and intact. * Consults, Subsequent - Vanita Ware NP - 01/23/2024 3:16 PM CDT Endocrinology & Diabetes Inpatient Subsequent Consult Note Patient: Isabelle Lutz, 73 y.o. female (: 1950) Room: [id number]/[id number] ( ) LOS: 3 Isabelle Lutz is a 73 y.o. female with PMH significant for hypothyroidism, osteoporosis, CAD, PVD, CKD, HTN, HLD and T2DM who presented to the hospital for planned CABG (now s/p 3 vessel CABG, [place], 01/20/24). The Endocrinology/Diabetes Service is being consulted for inpatient blood glucose management and discharge planning recommendations during this hospitalization. Interval Events & Subjective There were no acute events overnight. Ms. Lutz reports intermittent nausea with pain, shortness ofbreath and expected incisional chest pain. Appetite OK . Denies vomiting/diarrhea, fever or chillstoday. Hopes to have chest tube removed today. Voiding without difficulty; passing flatus, last BM before surgery. Diet: Adult Diet Restricted; Low Fat, Low Chol; Consistent Carbohydrate Blood glucose over previous 24 hours well controlled with range of 94-196 mg/dl. Blood glucose dropped ~100 points with bolus insulin at lunch in setting of poor oral intake. Fasting blood glucose this morning was 152 mg/dl Total daily dose of insulin was 57 units Basal Dose: 32 units Bolus Dose: 20 units Correctional Dose: 7 units Target inpatient blood glucose is 100-200 mg/dl Recent Labs Lab Units 01/23/24 1134 01/23/24 0739 01/23/24 0216 01/22/24 2319 01/22/24 2221 01/22/24 2038 01/22/24 1635 01/22/24 1203 01/22/24 0729 01/22/24 0558 GLUCOSE mg/dL -- -- -- -- 195 -- -- -- -- 162 POC GLUCOSE MONITOR mg/dL 217* 152 141 183 -- 188 94 196 161 -- Vitals & Exam Temp: [36 ??C (96.8 ??F)-36.5 ??C (97.7 ??F)] 36 ??C (96.8 ??F) Pulse: [84-87] 84 BP: (104-112)/(57-60) 112/60 Resp: [18] 18 SpO2: [95 %] 95 % I/O this shift: In: - Out: 150 [Urine:150] Physical Exam Gen : pleasant 73 year old female sitting quietly in chair in no acute distress, alert, appropriate, cooperative, appears stated age, well-developed, well- nourished; visitor at bedside HENT : normocephalic, atraumatic, moist mucus membranes Eyes : conjunctiva clear, anicteric, no proptosis/exophthalmos/lid lag Pulm : non-labored, on room air Extr : atraumatic, no cyanosis/clubbing/edema Skin : turgor normal, no rashes/wounds/lesions, chest tube Neuro : alert, speech fluent, comprehension intact, moving all extremities Psych : cooperative, appropriate affect & mood, good insight & judgment Data Medications, labs, imaging, and diagnostics independently reviewed in Epic and commented on below. Lab Results Component Value Date TSH 0.69 10/29/2023 FREET4 1.38 10/29/2023 Lab Results Component Value Date CHOL 158 10/29/2023 TRIG 88 01/20/2024 HDL 49 (L) 06/25/2022 LDLCALC 91 01/13/2021 LDLDIRECT 92 10/29/2023 Lab Results Component Value Date PTH 71 06/25/2022 25HYDROVITD 40 01/13/2021 Lab Results Component Value Date HGBA1C 5.9 10/29/2023 Assessment & Plan 73 y.o. female with PMH significant for hypothyroidism, osteoporosis, CAD, PVD, CKD, HTN, HLD and T2DM who presented to the hospital for planned CABG (now s/p 3 vessel CABG, [place], 01/20/24). # Type 2 Diabetes Mellitus, Controlled, complicated by post op stress and steroid use Current HbA1c and reliability: 5.9%, CKD, anemia HbA1c goal based on comorbidities: <7 Diabetes Provider: Dr. Bell Insurance: Payor: MEDICARE / Plan: MEDICARE PART A & B / Product Type: MEDICARE TRADITIONAL / Home regimen: Ozempic 2 mg Empagliflozin 10 mg 50 insulin glargine 10 insulin lispro TID with meals Levothyroxine 88 mcg Metformin 500 mg daily Blood glucose over previous 24 hours well controlled with range of 94-196 mg/dl. Blood glucose dropped ~100 points with bolus insulin at lunch in setting of poor oral intake. Fasting blood glucose this morning was 152 mg/dl Total daily dose of insulin was 57 units Basal Dose: 32 units Bolus Dose: 20 units Correctional Dose: 7 units Target inpatient blood glucose is 100-200 mg/dl Inpatient glycemic control is complicated by variable oral intake, stress. As patient's appetite is poor, we recommend adjusting the bolus insulin from with meals to after meals to avoid hypoglycemia. We will continue to intensely monitor blood glucose and titrate insulin as needed to optimize glycemic control to avoid hypoglycemic/hyperglycemic events. Recommendations for diabetes management were discussed with the primary team. Recommendations: Basal Insulin: - glargine 32 units qHS Mealtime/Bolus Insulin: - adjust lispro 10 units TID from AC to PC Correctional/Sliding-Scale Insulin: - resistant correctional lispro TID AC, HS, 2 am - POC glucoses TID AC, HS, 2AM when eating - Consistent carb diet when eating; no juices, no regular soda - When NPO, continue glargine, hold mealtime lispro, change correctional (sliding scale) lispro andPOC glucoses to Q4hr - If he has severe hyperglycemia (>300), use the hyperglycemia urgency order set (make NPO, IV insulin, re-check in 1 hour) > The half-life of IV insulin is ~5 minutes; it's safer than giving multiple doses of subQ insulin (can last ~4 hours & builds up if given repeatedly). ## Discharge Planning Use ???Adult END Diabetes Discharge?? Order Set - Follow up with Dr. Bell on 03/02/24 at 11:40 AM as scheduled -- Vanita Ware NP Endocrinology, Metabolism, & Lipid Research Contact Info: New Endocrinology Diabetes Consults: [phone] General Endocrine (Non-Diabetes): [phone] Treatment Teams: [facility] Endocrinology Diabetes 1: Fellow + Attending [facility] Endocrinology Diabetes 2: Vanita Ware NP at [phone] [facility] Endocrinology Diabetes 3: Marcia Irvin NP at [phone] [facility] Endocrinology Diabetes 4: Jacki Patel NP (/) at [phone] or Leeanne Lincoln NP (//) at [phone] Diabetes After-Hours & Weekends: Diabetes Fellow [phone] or [phone] * Plan of Care - Eduard Berger - 01/22/2024 5:28 PM CDT Goals: Clinical Goals for the Shift: VSS, Pain Control, Free from falls and injury, have tubes and wires removed when possible. Halfway Patient Centered Goal for Treatment: D/c home Summary: Patient has been on room air this shift. Patient has had nothing infused through IV. Patient has had complaints of pain in left lower flank where chest tube is inserted. PRN pain medications have been administered per eMar this shift. Patient felt nauseas once this shift. PRN antiemetic administered once this shift. Patient ambulated with PT this shift using a walker. Patient still has a Prevena wound vac in place. Patient only has a left pleural chest tube on low wall suction. Mediastinal chest tubes were removed this shift. Patient has been up to chair once this shift. Patient has elected to sit on edge of bed when meals have arrived. Patient has had a poor appetite this shift. Patient was given a glucerna shake this shift since she did not eat lunch. Vitals remain stable. Medications administered per eMar. Water and call light in reach with bed in low position. Will continue to follow the current plan of care. Problem: Skin Integrity Impairment Risk Goal: Mobility will improve Outcome: Progressing Goal: Understanding of ways to prevent future skin breakdown will improve Outcome: Progressing Goal: Nutritional status will improve Outcome: Progressing Goal: Risk for impaired skin integrity will decrease Outcome: Progressing Problem: Lack of Knowledge Goal: Ability to develop a pain control plan will improve Outcome: Progressing Problem: Medication Goal: Satisfaction with pain management medication regimen will improve Outcome: Progressing Problem: Sensory Goal: Ability to identify factors that increase pain levels will improve while working to decrease the patient's pain levels Outcome: Progressing Problem: Coping Goal: Ability to cope will improve Outcome: Progressing Problem: Health Behavior Goal: Identification of resources available to assist in meeting health care needs will improve Outcome: Progressing Problem: Discharge Planning Goal: Understanding discharge needs will improve Outcome: Progressing Problem: Lack of Knowledge Goal: Ability to describe self care measures that may prevent or decrease complications related to Type 1 Diabetes will improve Outcome: Progressing Goal: Ability to describe self care measures that may prevent or decrease complications related to Type 2 Diabetes will improve Outcome: Progressing Problem: Health Nutrition Goal: Nutritional intake and knowledge related to Diabetes will improve Outcome: Progressing Problem: Neurosensory Goal: Achieves stable or improved neurological status Outcome: Progressing Goal: Achieves maximal functionality and self care Outcome: Progressing Problem: Respiratory Goal: Achieves optimal ventilation and oxygenation Outcome: Progressing Goal: Ability to maintain a clear airway will improve Outcome: Progressing Goal: Mechanical Ventilation will be safely managed Outcome: Progressing Problem: Cardiovascular Goal: Maintains optimal cardiac output and hemodynamic stability Outcome: Progressing Goal: Absence of cardiac dysrhythmias or at baseline Outcome: Progressing Goal: Cardiovascular status will improve Outcome: Progressing Problem: Skin/Tissue Integrity Goal: Skin integrity remains intact Outcome: Progressing Goal: Incisions, wounds, or drain sites healing without S/S of infection Outcome: Progressing Goal: Oral mucous membranes remain intact Description: Outcome: Progressing Problem: Musculoskeletal Goal: Return mobility to safest level of function Outcome: Progressing Goal: Maintain proper alignment of affected body part Outcome: Progressing Goal: Return ADL status to a safe level of function Outcome: Progressing Goal: Ability to perform activities at highest level will improve Outcome: Progressing Goal: Mobility, ROM and muscle strength will improve Outcome: Progressing Problem: Gastrointestinal Goal: Minimal or absence of nausea and vomiting Outcome: Progressing Goal: Maintains or returns to baseline bowel function Outcome: Progressing Goal: Maintains adequate nutritional intake Outcome: Progressing Goal: Will show no signs and symptoms of gastrointestinal bleeding Outcome: Progressing Problem: Genitourinary Goal: Absence of urinary retention Outcome: Progressing Goal: Urinary catheter remains patent Outcome: Progressing Problem: Infection Goal: Absence of infection during hospitalization Outcome: Progressing Goal: Absence of fever/infection during anticipated neutropenic period Outcome: Progressing Problem: Metabolic/Fluid and Electrolytes Goal: Electrolytes maintained within normal limits Outcome: Progressing Goal: Hemodynamic stability and optimal renal function maintained Outcome: Progressing Goal: Glucose maintained within prescribed range Outcome: Progressing Problem: Hematologic Goal: Maintains hematologic stability Outcome: Progressing Problem: Fall Risk Goal: Ability to state ways to decrease the risk of falls will improve Outcome: Progressing Goal: Will remain free from falls Outcome: Progressing Goal: Will remain free from injury from falls Outcome: Progressing * Assessment & Plan Note - Nii Garces NP - 01/22/2024 2:29 PM CDT Associated Problem(s): Thrombocytopenia (HCC) (Resolved 01/25/2024) - low platelet level post cardiac surgery - Platelet level 134 today from 132 - no overt signs of bleeding - continue daily CBC * Assessment & Plan Note - Nii Garces NP - 01/22/2024 2:26 PM CDT Associated Problem(s): Obesity - BMI 40.32 on admission - provide bariatric equipment * Assessment & Plan Note - Nii Garces NP - 01/22/2024 2:22 PM CDT Associated Problem(s): Leucocytosis (Resolved 01/26/2024) - Elevated WBC level post cardiac surgery - WBC now WNL - pt. remained afebrile - continue to trend. Daily CBC * Assessment & Plan Note - Nii Garces NP - 01/22/2024 2:16 PM CDT Associated Problem(s): ABLA (acute blood loss anemia) As expected post op- H/H stable - daily CBC - consider blood transfusion if hgb <7 and hemodynamically unstable * Assessment & Plan Note - Nii Garces NP - 01/22/2024 2:12 PM CDT Associated Problem(s): Coronary artery disease - s/p CABG x3 (AGOSTO to LAD, vein to OM, mariano to [...] will insulate- plan to cut at dc * Initial Assessments - Christy Limon RN - 01/22/2024 1:16 PM CDT CM Initial Assessment Interview Note Information Obtained From: Patient (01/22/24 1312) Admission Source: admission from home Impression: s/p CABG 01/20/24. Transferred to floor from ICU yesterday. Chest tubes x [address]. Plan to discontinue one chest tube today. Wires at discharge. Patient lives with her son Anmol who recently had back surgery on 01/01 and would not be able to assist at home. Waitingon PT/OT recommendations for disposition Plan Includes: Case Management will follow for Medical Updates and discharge planning and referrals for safe DC home. CM met with patient and daughter to discuss IRF vs Home vs SNF. Patient is interested in IRF - discussed choices. Preparer Samples And Repairs noted patient has been recommended for Inpatient Rehab by PT/OT. Preparer Samples And Repairs proactively initiated a referral to [facility] preferred Inpatient Rehab Facility - [facility]. Preparer Samples And Repairs met with the patient/family at bedside to discuss recommendations by therapy and to work on a potential discharge disposition plan. Preparer Samples And Repairs provided education to patient/family on the rehabilitation process. Patient reported he/she was interested in placement for rehabilitation. fire investigation manager provided a list of additional potential Inpatient Rehab Facility choices to patient and family. Patient and family selected the following choices (preference order): [facility] location fire investigation manager sent out additional referrals via [facility]. CM awaiting acceptance from an Inpatient RehabFacility and will continue to work on discharge planning with patient and family. Primary Source of Transportation: Does the patient need discharge transport arranged?: Yes (to be determined EMS vs Family) Has discharge transport been arranged?: No (01/22/241311) Health Insurance Coverage: Medicare [facility] Federal Prescription Coverage: yes Pharmacy: [facility] - [facility] - [facility] AT Portal to [facility] [place] [id number] [facility]/pharmacy [address] [place] [address] [phone] [address] Primary Care Provider: Elpidio Serrato MD Prior to Admission: Functional Status: Independent with ADLs Primary Caregiver: Self Support System: Children Home Care Services: No Outpatient Services: No Durable Medical Equipment: Cane (3 prong) (uses as needed) Living Arrangements: Children (Lives with her son Anmol) Type of Residence: Private residence Steps in home?: Yes, Outside of home Number of steps outside: 1 steps Medication management: Independent (01/22/241311) Potential discharge needs include: Home Health: Other (Comment) (Inpatient rehab) (01/22/241311) OP Services: na Dialysis: na Behavioral Health Services: none Anticipated Level of Care: Anticipated discharge level of care: Acute Rehab Pt/Family agrees with Anticipated Level of Care: Yes (01/22/241311) Patient expects to be Discharged to: Acute Rehab, (09/11/24 1312) Additional Information: CM met with patient at bedside to complete initial assessment. Address and phone number verified with face sheet. Patient lives in a private residence with son and reports being independent with ADLs. Denies HHC or DME. - occasional use of cane Patient's Identified Problem/Goal Problem: Ensure acute medical needs are met and that patient has a safe discharge plan. Goal: Secure a discharge plan that patient/family are agreeable with and ensure patient has continuum of care. Case management will follow for discharge planning and send referrals as needed. Goals include: To assure continuity of care, To maximize coping skills, To assure patient is in a safe environment and To assure access to community resources. Plan includes: 1. Collaboration with Patient, Provider, Direct Care Nurse, Hairspring Ii Inspector, and other members of theHealth Care Team to assure needed interventions completed. 2. Return patient to optimal level of self-care post discharge. 3. Preparer Samples And Repairs will follow for Discharge Planning - interventions as needed 4. Anticipated level of care at discharge 5. Planned Discharge Disposition Christy Limon RN * Plan of Care - uLis Dos Santos RN - 01/22/2024 6:46 AM CDT Goals: Clinical Goals for the Shift: VSS, Pain Control, Free from falls and injury, have tubes and wires removed when possible. Disintegrator Operator Patient Centered Goal for Treatment: D/c home Summary: Patient progressing. Continue POC. Problem: Skin Integrity Impairment Risk Goal: Mobility will improve Outcome: Progressing Goal: Understanding of ways to prevent future skin breakdown will improve Outcome: Progressing Goal: Nutritional status will improve Outcome: Progressing Goal: Risk for impaired skin integrity will decrease Outcome: Progressing Problem: Lack of Knowledge Goal: Ability to develop a pain control plan will improve Outcome: Progressing Problem: Medication Goal: Satisfaction with pain management medication regimen will improve Outcome: Progressing Problem: Sensory Goal: Ability to identify factors that increase pain levels will improve while working to decrease the patient's pain levels Outcome: Progressing Problem: Coping Goal: Ability to cope will improve Outcome: Progressing Problem: Health Behavior Goal: Identification of resources available to assist in meeting health care needs will improve Outcome: Progressing Problem: Discharge Planning Goal: Understanding discharge needs will improve Outcome: Progressing Problem: Lack of Knowledge Goal: Ability to describe self care measures that may prevent or decrease complications related to Type 1 Diabetes will improve Outcome: Progressing Goal: Ability to describe self care measures that may prevent or decrease complications related to Type 2 Diabetes will improve Outcome: Progressing Problem: Health Nutrition Goal: Nutritional intake and knowledge related to Diabetes will improve Outcome: Progressing Problem: Neurosensory Goal: Achieves stable or improved neurological status Outcome: Progressing Goal: Achieves maximal functionality and self care Outcome: Progressing Problem: Respiratory Goal: Achieves optimal ventilation and oxygenation Outcome: Progressing Goal: Ability to maintain a clear airway will improve Outcome: Progressing Goal: Mechanical Ventilation will be safely managed Outcome: Progressing Problem: Cardiovascular Goal: Maintains optimal cardiac output and hemodynamic stability Outcome: Progressing Goal: Absence of cardiac dysrhythmias or at baseline Outcome: Progressing Goal: Cardiovascular status will improve Outcome: Progressing Problem: Skin/Tissue Integrity Goal: Skin integrity remains intact Outcome: Progressing Goal: Incisions, wounds, or drain sites healing without S/S of infection Outcome: Progressing Goal: Oral mucous membranes remain intact Description: Outcome: Progressing Problem: Musculoskeletal Goal: Return mobility to safest level of function Outcome: Progressing Goal: Maintain proper alignment of affected body part Outcome: Progressing Goal: Return ADL status to a safe level of function Outcome: Progressing Goal: Ability to perform activities at highest level will improve Outcome: Progressing Goal: Mobility, ROM and muscle strength will improve Outcome: Progressing Problem: Gastrointestinal Goal: Minimal or absence of nausea and vomiting Outcome: Progressing Goal: Maintains or returns to baseline bowel function Outcome: Progressing Goal: Maintains adequate nutritional intake Outcome: Progressing Goal: Will show no signs and symptoms of gastrointestinal bleeding Outcome: Progressing Problem: Genitourinary Goal: Absence of urinary retention Outcome: Progressing Goal: Urinary catheter remains patent Outcome: Progressing Problem: Infection Goal: Absence of infection during hospitalization Outcome: Progressing Goal: Absence of fever/infection during anticipated neutropenic period Outcome: Progressing Problem: Metabolic/Fluid and Electrolytes Goal: Electrolytes maintained within normal limits Outcome: Progressing Goal: Hemodynamic stability and optimal renal function maintained Outcome: Progressing Goal: Glucose maintained within prescribed range Outcome: Progressing Problem: Hematologic Goal: Maintains hematologic stability Outcome: Progressing Problem: Fall Risk Goal: Ability to state ways to decrease the risk of falls will improve Outcome: Progressing Goal: Will remain free from falls Outcome: Progressing Goal: Will remain free from injury from falls Outcome: Progressing * Plan of Care - Rose Marie Crabtree RN - 01/21/2024 2:57 PM CDT Problem: Skin Integrity Impairment Risk Goal: Mobility will improve Outcome: Progressing Goal: Understanding of ways to prevent future skin breakdown will improve Outcome: Progressing Goal: Nutritional status will improve Outcome: Progressing Goal: Risk for impaired skin integrity will decrease Outcome: Progressing Problem: Lack of Knowledge Goal: Ability to develop a pain control plan will improve Outcome: Progressing Problem: Medication Goal: Satisfaction with pain management medication regimen will improve Outcome: Progressing Problem: Sensory Goal: Ability to identify factors that increase pain levels will improve while working to decrease the patient's pain levels Outcome: Progressing Problem: Coping Goal: Ability to cope will improve Outcome: Progressing Problem: Health Behavior Goal: Identification of resources available to assist in meeting health care needs will improve Outcome: Progressing Problem: Discharge Planning Goal: Understanding discharge needs will improve Outcome: Progressing Problem: Lack of Knowledge Goal: Ability to describe self care measures that may prevent or decrease complications related to Type 1 Diabetes will improve Outcome: Progressing Goal: Ability to describe self care measures that may prevent or decrease complications related to Type 2 Diabetes will improve Outcome: Progressing Problem: Health Nutrition Goal: Nutritional intake and knowledge related to Diabetes will improve Outcome: Progressing Problem: Neurosensory Goal: Achieves stable or improved neurological status Outcome: Progressing Goal: Achieves maximal functionality and self care Outcome: Progressing Problem: Respiratory Goal: Achieves optimal ventilation and oxygenation Outcome: Progressing Goal: Ability to maintain a clear airway will improve Outcome: Progressing Goal: Mechanical Ventilation will be safely managed Outcome: Progressing Problem: Cardiovascular Goal: Maintains optimal cardiac output and hemodynamic stability Outcome: Progressing Goal: Absence of cardiac dysrhythmias or at baseline Outcome: Progressing Goal: Cardiovascular status will improve Outcome: Progressing Problem: Skin/Tissue Integrity Goal: Skin integrity remains intact Outcome: Progressing Goal: Incisions, wounds, or drain sites healing without S/S of infection Outcome: Progressing Goal: Oral mucous membranes remain intact Description: Outcome: Progressing Problem: Musculoskeletal Goal: Return mobility to safest level of function Outcome: Progressing Goal: Maintain proper alignment of affected body part Outcome: Progressing Goal: Return ADL status to a safe level of function Outcome: Progressing Goal: Ability to perform activities at highest level will improve Outcome: Progressing Goal: Mobility, ROM and muscle strength will improve Outcome: Progressing Problem: Gastrointestinal Goal: Minimal or absence of nausea and vomiting Outcome: Progressing Goal: Maintains or returns to baseline bowel function Outcome: Progressing Goal: Maintains adequate nutritional intake Outcome: Progressing Goal: Will show no signs and symptoms of gastrointestinal bleeding Outcome: Progressing Problem: Genitourinary Goal: Absence of urinary retention Outcome: Progressing Goal: Urinary catheter remains patent Outcome: Progressing Problem: Infection Goal: Absence of infection during hospitalization Outcome: Progressing Goal: Absence of fever/infection during anticipated neutropenic period Outcome: Progressing Problem: Metabolic/Fluid and Electrolytes Goal: Electrolytes maintained within normal limits Outcome: Progressing Goal: Hemodynamic stability and optimal renal function maintained Outcome: Progressing Goal: Glucose maintained within prescribed range Outcome: Progressing Problem: Hematologic Goal: Maintains hematologic stability Outcome: Progressing Problem: Fall Risk Goal: Ability to state ways to decrease the risk of falls will improve Outcome: Progressing Goal: Will remain free from falls Outcome: Progressing Goal: Will remain free from injury from falls Outcome: Progressing Goals: Clinical Goals for the Shift: VSS, TTF, de-line Pt transferred to the unit today, managing pain with PRN meds, Pt daughter at bedside, call light in reach, will continue to monitor. * Plan of Care - Shelby Cisneros RN - 01/21/2024 1:42 PM CDT Goals: Clinical Goals for the Shift: VSS, TTF, de-line Summary: TTF Problem: Skin Integrity Impairment Risk Goal: Mobility will improve Outcome: Ongoing Goal: Understanding of ways to prevent future skin breakdown will improve Outcome: Ongoing Goal: Nutritional status will improve Outcome: Ongoing Goal: Risk for impaired skin integrity will decrease Outcome: Ongoing Problem: Lack of Knowledge Goal: Ability to develop a pain control plan will improve Outcome: Ongoing Problem: Medication Goal: Satisfaction with pain management medication regimen will improve Outcome: Ongoing Problem: Sensory Goal: Ability to identify factors that increase pain levels will improve while working to decrease the patient's pain levels Outcome: Ongoing Problem: Coping Goal: Ability to cope will improve Outcome: Ongoing Problem: Health Behavior Goal: Identification of resources available to assist in meeting health care needs will improve Outcome: Ongoing Problem: Discharge Planning Goal: Understanding discharge needs will improve Outcome: Ongoing Problem: Lack of Knowledge Goal: Ability to describe self care measures that may prevent or decrease complications related to Type 1 Diabetes will improve Outcome: Ongoing Goal: Ability to describe self care measures that may prevent or decrease complications related to Type 2 Diabetes will improve Outcome: Ongoing Problem: Health Nutrition Goal: Nutritional intake and knowledge related to Diabetes will improve Outcome: Ongoing Problem: Neurosensory Goal: Achieves stable or improved neurological status Outcome: Ongoing Goal: Achieves maximal functionality and self care Outcome: Ongoing Problem: Respiratory Goal: Achieves optimal ventilation and oxygenation Outcome: Ongoing Goal: Ability to maintain a clear airway will improve Outcome: Ongoing Goal: Mechanical Ventilation will be safely managed Outcome: Ongoing Problem: Cardiovascular Goal: Maintains optimal cardiac output and hemodynamic stability Outcome: Ongoing Goal: Absence of cardiac dysrhythmias or at baseline Outcome: Ongoing Goal: Cardiovascular status will improve Outcome: Ongoing Problem: Skin/Tissue Integrity Goal: Skin integrity remains intact Outcome: Ongoing Goal: Incisions, wounds, or drain sites healing without S/S of infection Outcome: Ongoing Goal: Oral mucous membranes remain intact Description: Outcome: Ongoing Problem: Musculoskeletal Goal: Return mobility to safest level of function Outcome: Ongoing Goal: Maintain proper alignment of affected body part Outcome: Ongoing Goal: Return ADL status to a safe level of function Outcome: Ongoing Goal: Ability to perform activities at highest level will improve Outcome: Ongoing Goal: Mobility, ROM and muscle strength will improve Outcome: Ongoing Problem: Gastrointestinal Goal: Minimal or absence of nausea and vomiting Outcome: Ongoing Goal: Maintains or returns to baseline bowel function Outcome: Ongoing Goal: Maintains adequate nutritional intake Outcome: Ongoing Goal: Will show no signs and symptoms of gastrointestinal bleeding Outcome: Ongoing Problem: Genitourinary Goal: Absence of urinary retention Outcome: Ongoing Goal: Urinary catheter remains patent Outcome: Ongoing Problem: Infection Goal: Absence of infection during hospitalization Outcome: Ongoing Goal: Absence of fever/infection during anticipated neutropenic period Outcome: Ongoing Problem: Metabolic/Fluid and Electrolytes Goal: Electrolytes maintained within normal limits Outcome: Ongoing Goal: Hemodynamic stability and optimal renal function maintained Outcome: Ongoing Goal: Glucose maintained within prescribed range Outcome: Ongoing Problem: Hematologic Goal: Maintains hematologic stability Outcome: Ongoing Problem: Fall Risk Goal: Ability to state ways to decrease the risk of falls will improve Outcome: Ongoing Goal: Will remain free from falls Outcome: Ongoing Goal: Will remain free from injury from falls Outcome: Ongoing * Plan of Care - Ana Mendez RN - 01/21/2024 1:23 AM CDT Problem: Skin Integrity Impairment Risk Goal: Mobility will improve Outcome: Progressing Goal: Understanding of ways to prevent future skin breakdown will improve Outcome: Progressing Goal: Nutritional status will improve Outcome: Progressing Goal: Risk for impaired skin integrity will decrease Outcome: Progressing Problem: Lack of Knowledge Goal: Ability to develop a pain control plan will improve Outcome: Progressing Problem: Medication Goal: Satisfaction with pain management medication regimen will improve Outcome: Progressing Problem: Sensory Goal: Ability to identify factors that increase pain levels will improve while working to decrease the patient's pain levels Outcome: Progressing Problem: Coping Goal: Ability to cope will improve Outcome: Progressing Problem: Health Behavior Goal: Identification of resources available to assist in meeting health care needs will improve Outcome: Progressing Goals: Clinical Goals for the Shift: vss, hds,wean to extubate, montior I&O;s and labs emotional support pain control Summary:vss, hds,wean to extubate, montior I&O;s and labs emotional support pain control * Plan of Care - Pool Duque RRT - 01/20/2024 9:44 PM CDT SAT/SBT WEAN SAFETY SCREEN for (SBT): PASS - Proceed with SBT. (No Exclusion Criteria Met) MECHANICAL VENT WEAN SETTINGS: 10 Pres. Support 5 Peep 40% FIO2 . SBT OUTCOME: PASS - (RSBI: <105) Patient's RSBI = 60.9 breaths/min/L Respiratory Rate = 19 bpm Total Wean Time = 9 min PURSUE EXTUBATION: YES - Evaluate Patient for Extubation. PLAN: Patient has passed SBT Wean and was extubated at 2140. The patient is on supplemental oxygen for post-extubation support. Pt placed on 4L NC.The therapist will continue to monitor patient's respiratory status and intervene as necessary. * Op Note - Stan Treviño MD - 01/20/2024 9:48 AM CDT Op Note: CABG Patient: Isabelle Lutz Service Date: 01/20/2024 : 1950 Admit Date: 01/20/2024 SURGEON Stan Treviño MD CONSTRUCTION CODE ADMINISTRATOR Jeff Alaniz MD ANESTHESIA Diogo Smith MD PERFUSION Gerald Guzman PREOPERATIVE DIAGNOSIS 1. Coronary artery disease with triple-vessel disease with left main disease 2. Ischemic cardiomyopathy with reduced ejection fraction 3. Diabetes mellitus 4. Glaucoma 5. Hypertension 6. Hypothyroidism 7. Chronic kidney disease stage 3 8. Hyperlipidemia 9. Obesity POSTOPERATIVE DIAGNOSIS Same as above PROCEDURE PERFORMED 1. On pump Coronary artery bypass grafting x3, placement of skeletonized left JAIMEE to the LAD, saphenous vein graft to the obtuse marginal, saphenous vein graft to the PDA 2. Left atrial appendage clip ligation using the 40 mm atrial lead (LeAPPS trial) 3. Sternal plating ANESTHESIA General. INDICATIONS This is a 73 y.o. female with past medical history of diabetes mellitus, glaucoma hypertension, hypothyroidism, chronic kidney disease stage 3, hyperlipidemia, basically was diagnosed with coronary artery disease with triple-vessel disease with left main disease with moderately diffuse ejection fraction. We plan to take her to the operating room today for an on pump coronary bypass grafting usingthe left internal mammary artery and saphenous vein graft. Risks and benefits of procedures were discussed with the patient. She understands the risks and is willing to proceed. OPERATIVE FINDINGS 1. Left internal mammary artery harvested in a skeletonized fashion, good vessel, good flow 2. Saphenous vein graft harvested from bilateral lower limbs, good vessel, good caliber 3. Good flows in all the grafts (agosto to LAD 90 mL/minute, saphenous vein graft to OM 80 mL/minute,saphenous vein graft to PDA 70 mL/minute) 4. Severely osteoporotic sternum-sternal plating performed Cross-clamp time was 103 minutes. Bypass time 128 minutes. EBL: Cardiopulmonary bypass DESCRIPTION OF PROCEDURE After induction of anesthesia and endotracheal intubation the patient's neck chest abdomen and legswere prepped and draped in a sterile fashion. The bilateral greater saphenous vein was harvested using an endoscopic device. A median sternotomy was performed. The left internal mammary artery was harvested in a skeletonized fashion. Systemic heparin was administered. The pericardium was opened andsuspended.An area on the aorta was then identified for cannulation and cross-clamping. Aortic and right atrial cannulation was performed using 3-0 Prolene pursestring sutures. An antegrade cardioplegia catheter with aortic root vent and retrograde cardioplegia cannula was placed. We went on bypass once ACT was adequate. The aorta was cross clamped. Antegrade cardioplegia and then subsequently retrograde cardioplegia was administered. Cardioplegia was administered every 15 minutes thereafter. The heart was retracted. The posterior descending artery was exposed. Arteriotomy was performed. Saphenous vein graft was brought into the field and cut to size and shape. It was anastomosed to the posterior descending artery in an end-to-side fashion using 7-0 Prolene suture. The heart was placed back into original position. Proximal anastomosis between the saphenous vein graft and the aorta wasperformed using 6-0 Prolene suture. The heart was retracted. The obtuse marginal artery was exposed. Arteriotomy was performed. Saphenous vein graft was brought into the field and cut to size and shape. It was anastomosed to the obtusemarginal artery in an end-to-side fashion using 7-0 Prolene suture. The heart was placed back into original position. Proximal anastomosis between the saphenous vein graft and aorta was performed using 6-0 Prolene suture. The heart was retracted. The left anterior descending artery was exposed. Arteriotomy was performed. The left internal mammary artery was brought into the field and the end was prepared. It was anastomosed to the left anterior descending artery in an end-to-side fashion using 7-0 Prolene suture. The heart was retracted and the left atrial appendage was exposed. It was sized to a 40 mm atrial lead. The lead was brought into the field in applied. The heart was placed back into original position. Warm antegrade blood was administered. Crossclamp was removed. Ventricular and atrial pacing wires were placed. The patient was allowed to reperfuse and was ventilated and was allowed to eject. Once the de-airing maneuvers were completed, the vents were removed.The patient was weaned off bypass successfully. The patient was decannulated. At this point then, the patient's chest was drained with appropriate chest tubes. Due to severe osteoporosis we decided to plate the patient's sternum. The sternum was plated using the sternal lock 360 plating system. In total 3 plates, 3 bands, 16 screws were used. The patient's fascia, subcutaneous, and skin were then closed with absorbable sutures. Patient tolerated procedurewell. She was taken to the ICU in stable but critical condition. Stan Ramírez, scrubbed and performed all the procedures for the entire time. Dr. Alaniz scrubbed and assisted the case for the entire time or performed some procedures under my complete supervision.I was always available throughout the case. * Brief Op Note - Jeff Alaniz MD - 01/20/2024 9:48 AM CDT Operative Progress Note Surgical Team: Surgeons and Role: * Stan Treviño MD - Primary * Jeff Alaniz MD - Fellow Anesthesiologist: Diogo Smith MD Manager Universal: Chandrakant Saba MD Verification Specialist: Gerald Guzman CCP; Jason Kapoor CCP Nut Sorter Operator: Ben Hi Nut Sorter Operator Relief: Glenna Lambert RN Scrub Relief: Glenna Lambert RN; Germaine Watt ST Scrub: Emmie Ware RN AUCTIONEER ART: Rachelle Rivas RN; Gloria Gannon CRNFA DATE OF SURGERY : 01/20/2024 Preoperative Diagnosis: Pre-op Diagnosis * Coronary artery disease, unspecified vessel or lesion type, unspecified whether angina present, unspecified whether king salmon or transplanted heart [I25.10] Postoperative Diagnosis: Post-op Diagnosis * Coronary artery disease, unspecified vessel or lesion type, unspecified whether angina present, unspecified whether king salmon or transplanted heart [I25.10] Procedure(s): Procedure(s) (LRB): 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 X3 USING AGOSTO AND LEFT & RIGHT SAPHENOUS ENDOVEIN HARVEST (N/A) 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 (N/A) LEFT ATRIAL APPENDAGE EXCLUSION USING 40MM ATRICLIP FLEXV (N/A) ORIF OF STERNUM USING STERNALOCK 360 (N/A) Operative Findings: CABGx3 (AGOSTO-LAD, vein-OM, vein- PDA), TONY clip, Sternal Plating (360) AGOSTO-LAD 60ml/m, PI 3.0, Vein-OM 90, PI 2.8, Vein-PDA 75ml/m, PI 2.5 CI 4.0 on DBA5 Estimated Blood Loss: Cardiopulmonary bypass Intraoperative Fluids: Refer to Anesthesia note Specimens: No specimen collected in procedure Implants: Implant Name Type Inv. Item Serial No. Molder Fitting Lot No. LRB No. Used [employer] Suture Keeler Cor Knot Pre Loaded Fastener Device Micro Titanium 0 [id number] - S0 - [id number] [employer] Suture Keeler Cor Knot Pre Loaded Fastener Device Micro Titanium 0 [id number] 0 Favoe [id number] N/A 1 Implanted [employer] Suture Keeler Cor Knot Pre Loaded Fastener Device Micro Titanium 0 92028 - S0 - [id number] [employer] Suture Keeler Cor Knot Pre Loaded Fastener Device Micro Titanium 0 [id number] 0 [employer]oe [id number] N/A 1 Implanted [employer] Suture Keeler Cor Knot Pre Loaded Fastener Device Micro Titanium 0 89449 - S0 - [id number] [employer] Suture Keeler Cor Knot Pre Loaded Fastener Device Micro Titanium 0 [id number] 0 [employer]oe [id number] N/A 1 Implanted [employer] Suture Keeler Cor Knot Pre Loaded Fastener Device Micro Titanium 0 82541 - S0 - [id number] [employer] Suture Keeler Cor Knot Pre Loaded Fastener Device Micro Titanium 0 22731 0 Favoe [id number] N/A 1 Implanted ATRICURE Device Left Atrial Appendage Malleable Shaft 180 Degree Rotation White Atriclip Flex V 40mm Flexv40 ACHV40 - [id number] ATRICURE Device Left Atrial Appendage Malleable Shaft 180 Degree Rotation White Atriclip Flex V 40mm Flexv40 ACHV40 Atricure [id number] N/A 1 Implanted [employer] SternaLock 360 Sternal Closure 74-0004 - [id number] [employer] [id number] Sternal Closure 74-0004 [employer] [id number] N/A 1 Implanted [employer] Sternalock Hernan 2.4mm 14mm Self Drill Lock Sternum Cancellous 73-1414 - [id number] [employer] Sternalock Hernan 2.4mm 14mm Self Drill Lock Sternum Cancellous 73-2414 [employer] N/A 12 Implanted [employer] Sternalock Hernan 2.4mm 16mm Self Drill Lock Sternum Cancellous 73-2416 - [id number] [employer] Sternalock Hernan 2.4mm 16mm Self Drill Lock Sternum Cancellous 73-2416 [employer] N/A 4 Implanted Blood/Blood Products Transfused: none Complications: None Condition on Discharge from the operating room was stable Jeff Alaniz MD Date: 01/20/2024 Time: 3:48 PM No Resident involved on case Cosigned by Stan Treviño MD at 02/02/2024 8:44 AM CDT Associated attestation - Stan Treviño MD - 02/02/2024 8:44 AM CDT I was present for the entire procedure. * Research Note - Jason Hoffman - 01/20/2024 6:20 AM CDT Images from the original note were not included. CARDIOTHORACIC RESEARCH NOTE TO FILE: Documentation of Consent PI: Jose Antonio Judd MD 20 JAN 2024 @ [address] Treviño to screen patient [facility] # [id number]: LeAAPS Trial The patient meets all inclusion and no exclusion criteria. I spoke with Isabelle Lutz on 17 JAN 2024 over the phone to go over the above mentioned trial. Priorto any study interventions, I explained the study in detail. A discussion followed which included but was not limited to the purpose of study, medical data collection, study risks, benefits and options. The patient asked study-related questions which I answered to her satisfaction. She verbally agreed to participate in the trial. We agreed to meet the morning of her procedure to sign the consent. I met with Ms. Lutz on 20 JAN 2024 prior to her procedure in Surgical Waiting RM2. Also present in the room was her daughter. We went over the consent. I spent approximately 20 minutes with Ms. Lutz during the consent process.The consent form was read to the patient. The patient was then given time to read and review the consent form. Ms. Lutz agreed to participate in the study at this time, signed and dated in the appropriate locations which I witnessed. A copy of the signed consent form was given to the patient for her records. Cosigned by Stan Treviño MD at 02/02/2024 6:28 PM CDT documented in this encounter Plan of Treatment Pending Results Name Type Priority Associated Diagnoses Date /Time Triglycerides Lab STAT 01/20/2024 4:52 PM CDT Scheduled Orders Name Type Priority Associated Diagnoses Orde r Schedule ECG 12 lead ECG STAT As needed unt il discontinued starting 01/20/2024, 1 completed Triglycerides Lab STAT Once for 1 Occurrences starting 01/20/2024 until 01/20/2024 ECG 12 lead ECG Routine Daily until d iscontinued starting 01/25/2024, 4 completed documented as of this encounter Procedures Procedure Name Priority Date/Time Associated Diagnosis Comments POCT GLUCOSE DEVICE Routine 01/28/2024 12:00 PM CDT POCT GLUCOSE DEVICE Routine 01/28/2024 10:38 AM CDT POCT GLUCOSE DEVICE Routine 01/28/2024 7 :52 AM CDT ECG 12-LEAD Routine 01/28/2024 4:12 AM CDT POCT GLUCOSE DEVICE Routine 01/28/2024 1 :18 AM CDT EGFR Routine 01/27/2024 9:03 PM CDT CBC WITHOUT DIFFERENTIAL Routine 01/27/2024 9:03 PM CDT PHOSPHORUS Routine 01/27/2024 9:03 PM CDT MAGNESIUM Routine 01/27/2024 9:03 PM CDT BASIC METABOLIC PANEL Routine 01/27/2024 9:03 PM CDT POCT GLUCOSE DEVICE Routine 01/27/2024 7 :33 PM CDT POCT GLUCOSE DEVICE Routine 01/27/2024 4 :55 PM CDT POCT GLUCOSE DEVICE Routine 01/27/2024 11:20 AM CDT POCT GLUCOSE DEVICE Routine 01/27/2024 8 :51 AM CDT POCT GLUCOSE DEVICE Routine 01/27/2024 7 :29 AM CDT ECG 12-LEAD Routine 01/27/2024 5:05 AM CDT POCT GLUCOSE DEVICE Routine 01/27/2024 3 :13 AM CDT POCT GLUCOSE DEVICE Routine 01/27/2024 2 :14 AM CDT POCT GLUCOSE DEVICE Routine 01/27/2024 1 :39 AM CDT POCT GLUCOSE DEVICE Routine 01/27/2024 1 :19 AM CDT POCT GLUCOSE DEVICE Routine 01/27/2024 1 :00 AM CDT EGFR Routine 01/26/2024 9:20 PM CDT CBC WITHOUT DIFFERENTIAL Routine 01/26/2024 9:20 PM CDT TYPE AND SCREEN Timed 01/26/2024 9:20 PM CDT PHOSPHORUS Routine 01/26/2024 9:20 PM CDT MAGNESIUM Routine 01/26/2024 9:20 PM CDT BASIC METABOLIC PANEL Routine 01/26/2024 9:20 PM CDT POCT GLUCOSE DEVICE Routine 01/26/2024 7 :51 PM CDT POCT GLUCOSE DEVICE Routine 01/26/2024 6 :48 PM CDT POCT GLUCOSE DEVICE Routine 01/26/2024 5 :42 PM CDT POCT GLUCOSE DEVICE Routine 01/26/2024 5 :21 PM CDT INFECTION PREVENTION EMA AURIS PCR, SURVEILLANCE Routine 01/26/2024 3:28 PM CDT POCT GLUCOSE DEVICE Routine 01/26/2024 12:02 PM CDT POCT GLUCOSE DEVICE Routine 01/26/2024 8 :18 AM CDT POCT GLUCOSE DEVICE Routine 01/26/2024 6 :38 AM CDT POCT GLUCOSE DEVICE Routine 01/26/2024 5 :01 AM CDT POCT GLUCOSE DEVICE Routine 01/26/2024 4 :31 AM CDT ECG 12-LEAD Routine 01/26/2024 2:54 AM CDT POCT GLUCOSE DEVICE Routine 01/26/2024 2 :43 AM CDT EGFR Routine 01/25/2024 9:40 PM CDT CBC WITHOUT DIFFERENTIAL Routine 01/25/2024 9:40 PM CDT PHOSPHORUS Routine 01/25/2024 9:40 PM CDT MAGNESIUM Routine 01/25/2024 9:40 PM CDT BASIC METABOLIC PANEL Routine 01/25/2024 9:40 PM CDT POCT GLUCOSE DEVICE Routine 01/25/2024 9 :39 PM CDT POCT GLUCOSE DEVICE Routine 01/25/2024 6 :40 PM CDT POCT GLUCOSE DEVICE Routine 01/25/2024 5 :32 PM CDT POCT GLUCOSE DEVICE Routine 01/25/2024 5 :16 PM CDT POCT GLUCOSE DEVICE Routine 01/25/2024 5 :00 PM CDT ECG 12-LEAD Routine 01/25/2024 1:07 PM CDT XR CHEST PA LATERAL 2 VIEWS IP Routine 01/25/2024 12:44 PM CDT POCT GLUCOSE DEVICE Routine 01/25/2024 11:10 AM CDT POCT GLUCOSE DEVICE Routine 01/25/2024 8 :28 AM CDT POCT GLUCOSE DEVICE Routine 01/25/2024 2 :02 AM CDT EGFR Routine 01/24/2024 8:13 PM CDT CBC WITHOUT DIFFERENTIAL Routine 01/24/2024 8:13 PM CDT PHOSPHORUS Routine 01/24/2024 8:13 PM CDT MAGNESIUM Routine 01/24/2024 8:13 PM CDT BASIC METABOLIC PANEL Routine 01/24/2024 8:13 PM CDT POCT GLUCOSE DEVICE Routine 01/24/2024 7 :27 PM CDT POCT GLUCOSE DEVICE Routine 01/24/2024 4 :26 PM CDT XR CHEST 1 VIEW IP Routine 01/24/2024 3:15 PM CDT POCT GLUCOSE DEVICE Routine 01/24/2024 12:27 PM CDT POCT GLUCOSE DEVICE Routine 01/24/2024 7 :32 AM CDT POCT GLUCOSE DEVICE Routine 01/24/2024 1 :43 AM CDT EGFR Routine 01/23/2024 10:31 PM CDT CBC WITHOUT DIFFERENTIAL Routine 01/23/2024 10:31 PM CDT TYPE AND SCREEN Timed 01/23/2024 10:31 PM CDT PHOSPHORUS Routine 01/23/2024 10:31 PM CDT MAGNESIUM Routine 01/23/2024 10:31 PM CDT BASIC METABOLIC PANEL Routine 01/23/2024 10:31 PM CDT POCT GLUCOSE DEVICE Routine 01/23/2024 7 :57 PM CDT XR CHEST 1 VIEW IP Routine 01/23/2024 7:56 PM CDT XR CHEST PA LATERAL 2 VIEWS IP Routine 01/23/2024 6:23 PM CDT POCT GLUCOSE DEVICE Routine 01/23/2024 5 :59 PM CDT POCT GLUCOSE DEVICE Routine 01/23/2024 5 :36 PM CDT POCT GLUCOSE DEVICE Routine 01/23/2024 5 :09 PM CDT POCT GLUCOSE DEVICE Routine 01/23/2024 11:34 AM CDT POCT GLUCOSE DEVICE Routine 01/23/2024 7 :39 AM CDT POCT GLUCOSE DEVICE Routine 01/23/2024 2 :16 AM CDT POCT GLUCOSE DEVICE Routine 01/22/2024 11:19 PM CDT EGFR Routine 01/22/2024 10:21 PM CDT CBC WITHOUT DIFFERENTIAL Routine 01/22/2024 10:21 PM CDT PHOSPHORUS Routine 01/22/2024 10:21 PM CDT MAGNESIUM Routine 01/22/2024 10:21 PM CDT BASIC METABOLIC PANEL Routine 01/22/2024 10:21 PM CDT POCT GLUCOSE DEVICE Routine 01/22/2024 8 :38 PM CDT XR CHEST 1 VIEW IP Routine 01/22/2024 5:54 PM CDT POCT GLUCOSE DEVICE Routine 01/22/2024 4 :35 PM CDT XR CHEST 1 VIEW IP Routine 01/22/2024 2:43 PM CDT POCT GLUCOSE DEVICE Routine 01/22/2024 12:03 PM CDT POCT GLUCOSE DEVICE Routine 01/22/2024 7 :29 AM CDT EGFR STAT 01/22/2024 5:58 AM CDT CBC WITHOUT DIFFERENTIAL STAT 01/22/2024 5:58 AM CDT PHOSPHORUS STAT 01/22/2024 5:58 AM CDT MAGNESIUM STAT 01/22/2024 5:58 AM CDT BASIC METABOLIC PANEL STAT 01/22/2024 5:58 AM CDT INFECTION PREVENTION EMA AURIS PCR, SURVEILLANCE Routine 01/22/2024 5:55 AM CDT POCT GLUCOSE DEVICE Routine 01/22/2024 2 :42 AM CDT POCT GLUCOSE DEVICE Routine 01/22/2024 12:53 AM CDT XR CHEST 1 VIEW IP Routine 01/21/2024 8:54 PM CDT POCT GLUCOSE DEVICE Routine 01/21/2024 8 :36 PM CDT POCT GLUCOSE DEVICE Routine 01/21/2024 5 :08 PM CDT POCT GLUCOSE DEVICE Routine 01/21/2024 11:42 AM CDT ECG 12-LEAD STAT 01/21/2024 11:01 AM CDT POCT GLUCOSE DEVICE Routine 01/21/2024 8 :56 AM CDT CRITICAL CARE Routine 01/21/2024 6:00 AM CDT 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) POCT GLUCOSE DEVICE Routine 01/21/2024 3 :56 AM CDT EGFR Routine 01/21/2024 12:55 AM CDT CBC WITHOUT DIFFERENTIAL Routine 01/21/2024 12:55 AM CDT PHOSPHORUS Routine 01/21/2024 12:55 AM CDT MAGNESIUM Routine 01/21/2024 12:55 AM CDT BASIC METABOLIC PANEL Routine 01/21/2024 12:55 AM CDT XR CHEST 1 VIEW IP Routine 01/20/2024 9:40 PM CDT EXTUBATION Routine 01/20/2024 9:36 PM CDT POCT GLUCOSE DEVICE Routine 01/20/2024 8 :35 PM CDT XR CHEST 1 VIEW ED Urgent/IP Urgent 01/20/2024 7:10 PM CDT XR ABDOMEN AP 1 VIEW ED Urgent/IP Urgent 01/20/2024 7:10 PM CDT CRITICAL CARE Routine 01/20/2024 7:09 PM CDT 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) POCT GLUCOSE DEVICE Routine 01/20/2024 6 :06 PM CDT ECG 12-LEAD STAT 01/20/2024 5:04 PM CDT EGFR STAT 01/20/2024 4:52 PM CDT APTT STAT 01/20/2024 4:52 PM CDT PROTIME-INR STAT 01/20/2024 4:52 PM CDT CBC WITHOUT DIFFERENTIAL STAT 01/20/2024 4:52 PM CDT TRIGLYCERIDES STAT 01/20/2024 4:52 PM CDT PHOSPHORUS STAT 01/20/2024 4:52 PM CDT MAGNESIUM STAT 01/20/2024 4:52 PM CDT BASIC METABOLIC PANEL STAT 01/20/2024 4:52 PM CDT CRITICAL CARE Routine 01/20/2024 4:47 PM CDT POC BLOOD GAS AND CHEMISTRIES, ARTERIAL Routine 01/20/2024 4:43 PM CDT XR CHEST 1 VIEW IP Routine 01/20/2024 3:15 PM CDT POCT PLATELET COUNT AND HEMATOCRIT Routine 01/20/2024 2:56 PM CDT POC BLOOD GAS AND CHEMISTRIES, ARTERIAL Routine 01/20/2024 2:17 PM CDT POCT PROTHROMBIN TIME Routine 01/20/2024 2:16 PM CDT POCT PARTIAL THROMBOPLASTIN TIME (PTT) Routine 01/20/2024 2:15 PM CDT POCT PLATELET COUNT AND HEMATOCRIT Routine 01/20/2024 2:13 PM CDT POCT HEPARIN/ACT CPB Routine 01/20/2024 2:11 PM CDT POCT HEPARIN/ACT CPB Routine 01/20/2024 1:45 PM CDT POC BLOOD GAS AND CHEMISTRIES, ARTERIAL Routine 01/20/2024 1:44 PM CDT POCT HEPARIN/ACT CPB Routine 01/20/2024 1:16 PM CDT POC BLOOD GAS AND CHEMISTRIES, ARTERIAL Routine 01/20/2024 1:15 PM CDT POC BLOOD GAS AND CHEMISTRIES, ARTERIAL Routine 01/20/2024 12:50 PM CDT POCT HEPARIN/ACT CPB Routine 01/20/2024 12:48 PM CDT POCT HEPARIN/ACT CPB Routine 01/20/2024 12:16 PM CDT POC BLOOD GAS AND CHEMISTRIES, ARTERIAL Routine 01/20/2024 12:16 PM CDT POCT HEPARIN/ACT CPB Routine 01/20/2024 11:47 AM CDT POC BLOOD GAS AND CHEMISTRIES, ARTERIAL Routine 01/20/2024 11:46 AM CDT POCT HEPARIN/ACT CPB Routine 01/20/2024 11:14 AM CDT POCT HEPARIN DOSE RESPONSE, CPB Routine 01/20/2024 9:33 AM CDT POC BLOOD GAS AND CHEMISTRIES, ARTERIAL Routine 01/20/2024 9:33 AM CDT JULIANO ADD-ON FOR OR Routine 01/20/2024 8:2 4 AM CDT CLOSURE STERNAL - WITH PLATES 01/20/2024 8:04 AM CDT Coronary artery disease, unspecified vessel or lesion type, unspecified whether angina present, unspecified whether king salmon or transplanted heart ISOLATION LEFT ATRIAL APPENDAGE 01/20/2024 8:04 AM CDT Coronary artery disease, unspecified vessel or lesion type, unspecified whether angina present, unspecified whether king salmon or transplanted heart 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 01/20/2024 8:04 AM CDT Coronary artery disease, unspecified vessel or lesion type, unspecified whether angina present, unspecified whether king salmon or transplanted heart 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 01/20/2024 8:04 AM CDT Coronary artery disease, unspecified vessel or lesion type, unspecified whether angina present, unspecified whether king salmon or transplanted heart POCT GLUCOSE DEVICE Routine 01/20/2024 6 :55 AM CDT PREPARE RBC Timed 01/20/2024 6:24 AM CDT documented in this encounter Results * POCT glucose (01/28/2024 12:00 PM CDT) [facility] Signature Glucose, POC 179 70 - 199 mg/dL Blood 01/28/2024 12:0 0 PM CDT 01/28/2024 12:00 PM CDT us Stan Treviño MD LAB POCT ORDERABLES - DEVICE Final Result Performing Organization Address [facility]/[place] de Phone [facility] [place] [address] * POCT glucose (01/28/2024 10:38 AM CDT) Glucose, POC 179 70 - 199 mg/dL Blood 01/28/2024 10:3 8 AM CDT 01/28/2024 10:38 AM CDT us Stan Treviño MD LAB POCT ORDERABLES - DEVICE Final Result Performing Organization Address [facility]/[place] de Phone Number [facility] [place] [address] * POCT glucose (01/28/2024 7:52 AM CDT) Glucose, POC 106 70 - 199 mg/dL Blood 01/28/2024 7:52 AM CDT 01/28/2024 7:52 AM CDT Stan Treviño MD LAB POCT ORDERABLES - DEVICE Final Result Performing Organization Address [facility]/[place] [address] * ECG 12 lead (01/28/2024 4:12 AM CDT) Ventricular Rate EKG/Min 66 BPM [facility] Atrial Rate [address] [facility] [place]-Interval (MSEC) [address] [facility] QRS-Interval (MSEC) [address] [facility] QT-Interval (MSEC) [address] [facility] QTc [address] [facility] P Ross [address] [facility] R Ross -[address] [facility] T Ross 39 degrees [facility] Diagnosis Normal sinus rhythm Right bundle branch block Left anterior fascicular block Bifascicular block Possible Lateral infarct , age undetermined Abnormal ECG When compared with ECG of 27-JAN-2024 05:05, Borderline criteria for Lateral infarct are now Present Confirmed by MAHI RACHEL M.D ([id number]) on 01/28/2024 11:47:23 AM [facility] 01/28/2024 4:12 AM CDT 01/28/2024 11:47 AM CDT Marisela Russell WHEELCHAIR VAN OPERATOR FIRST RESPONDER ECG ORDERABLES Final Res ult Performing Organization Address City/[facility]/ZIP Co de Phone Number [facility] * POCT glucose (01/28/2024 1:18 AM CDT) Glucose, POC 119 70 - 199 mg/dL Blood 01/28/2024 1:18 AM CDT 01/28/2024 1:18 AM CDT Stan Treviño MD LAB POCT ORDERABLES - DEVICE Final Result Performing Organization Address [facility] Co de Phone Number [facility] Department [place] [address] * (ABNORMAL) eGFR (01/27/2024 9:03 PM CDT) eGFR 39(L) >=60 mL/min/1. 73 m2 Comment: Interpretive Data [...] interpretive data was last reviewed 2021. Blood 01/27/2024 9:03 PM CDT 01/27/2024 9:35 PM CDT us Nii Garces NP LAB BLOOD ORDERABLES Final R esult [facility] Department [place] [address] * (ABNORMAL) CBC without differential (01/27/2024 9:03 PM CDT) WBC 7.6 3.8 - 9.9 K/cumm Hgb 7.9(L) 11.9 - 15.5 g/dL [facility] Hct 24.4(L) 35.6 - 45.5 % [facility] Plt 230 150 - 400 K/cumm [facility] MPV 11.0 9.1 - 12.3 fL [facility] RBC 2.69(L) 3.90 - 5.20 M/cumm [facility] MCV 90.7 81.3 - 96.4 fL [facility] MCH 29.4 27.1 - 33.3 pg [facility] MCHC 32.4 32.3 - 35.7 g/dL [facility] RDW CV 14.2 11.1 - 14.9 % [facility] RDW SD 45.8 35.7 - 48.1 fL [facility] NRBC abs 0.00 0.00 - 0.01 K/cumm [facility] Blood 01/27/2024 9:03 PM CDT 01/27/2024 9:35 PM CDT Nii Garces NP LAB BLOOD ORDERABLES Final R esult [facility] Department [place] [address] * (ABNORMAL) Basic metabolic panel (01/27/2024 9:03 PM CDT) Pathologist [facility] Sodium 138 135 - 145 mmol/L Potassium, pl 4.4 3.3 - 4.9 mmol/L [facility] Chloride 104 97 - 110 mmol/L [facility] CO2 25 22 - 32 mmol/L [facility] Anion gap 9 2 - 15 mmol/L [facility] BUN 29(H) 6 - 25 mg/dL [facility] Creatinine 1.40(H) 0.60 - 1.10 mg/dL [facility] Glucose 165 70 - 199 mg/dL [facility] Comment: Interpretive Data Fasting glucose >/= [...] interpretive data was last revised 2022. Calcium 8.5 8.5 - 10.3 mg/dL [facility] Blood 01/27/2024 9:03 PM CDT 01/27/2024 9:35 PM CDT Nii Garces NP LAB BLOOD ORDERABLES Final R esult Performing Organization Address City/[facility]/ZIP Co de Phone Number [facility] [place] [address] * Phosphorus (01/27/2024 9:03 PM CDT) [facility] Phosphorus, pl 3.6 2.3 - 4.5 mg/dL Blood 01/27/2024 9:03 PM CDT 01/27/2024 9:35 PM CDT Nii Garces NP LAB BLOOD ORDERABLES Final R esult Performing Organization Address [facility] [place] [address] * Magnesium (01/27/2024 9:03 PM CDT) [facility] Magnesium 2.0 1.4 - 2.5 mg/dL Blood 01/27/2024 9:03 PM CDT 01/27/2024 9:35 PM CDT Nii Garces NP LAB BLOOD ORDERABLES Final R esult Performing Organization Address [facility] Co de Phone Number [facility] [place] [address] * (ABNORMAL) POCT glucose (01/27/2024 7:33 PM CDT) [facility] Glucose, POC 226(H) 70 - 199 mg/dL Blood 01/27/2024 7:33 PM CDT 01/27/2024 7:33 PM CDT us Stan Treviño MD LAB POCT ORDERABLES - DEVICE Final Result Performing Organization Address [facility] [place] [address] * POCT glucose (01/27/2024 4:55 PM CDT) Glucose, POC 163 70 - 199 mg/dL Blood 01/27/2024 4:55 PM CDT 01/27/2024 4:55 PM CDT Stan Treviño MD LAB POCT ORDERABLES - DEVICE Final Result Performing Organization Address [facility] Co de Phone Number [facility] [place] [address] * POCT glucose (01/27/2024 11:20 AM CDT) Glucose, POC 127 70 - 199 mg/dL Blood 01/27/2024 11:2 0 AM CDT 01/27/2024 11:20 AM CDT Stan Treviño MD LAB POCT ORDERABLES - DEVICE Final Result Performing Organization Address [facility] Co de Phone Number [facility] [place] [address] * POCT glucose (01/27/2024 8:51 AM CDT) Glucose, POC 106 70 - 199 mg/dL Blood 01/27/2024 8:51 AM CDT 01/27/2024 8:51 AM CDT Stan Treviño MD LAB POCT ORDERABLES - DEVICE Final Result Performing Organization Address [facility] Co de Phone Number [facility] [place] [address] * POCT glucose (01/27/2024 7:29 AM CDT) Glucose, POC 107 70 - 199 mg/dL Blood 01/27/2024 7:29 AM CDT 01/27/2024 7:29 AM CDT Stan Treviño MD LAB POCT ORDERABLES - DEVICE Final Result Performing Organization Address [facility] Co de Phone Number J[facility] Department [place] [address] * ECG 12 lead (01/27/2024 5:05 AM CDT) Ventricular Rate EKG/Min [address] [facility] Atrial Rate 80 BPM [facility] NJ-Interval (MSEC) 136 ms [facility] QRS-Interval (MSEC) 122 ms [facility] QT-Interval (MSEC) 426 ms [facility] QTc 491 ms [facility] P Ross 55 degrees [facility] R Ross -63 degrees [facility] T Ross 38 degrees [facility] Diagnosis Normal sinus rhythm with sinus arrhythmia Right bundle branch block Left anterior fascicular block Bifascicular block Abnormal ECG When compared with ECG of 26-JAN-2024 02:54, (unconfirmed) Premature ventricular complexes are no longer Present Confirmed by MAHI RACHEL M.D ([id number]) on 01/27/2024 12:23:55 PM [facility] 01/27/2024 5:05 AM CDT 01/27/2024 12:23 PM CDT Marisela Russell WHEELCHAIR VAN OPERATOR FIRST RESPONDER ECG ORDERABLES Final Res ult Performing Organization Address [facility] Co de Phone Number [facility] * POCT glucose (01/27/2024 3:13 AM CDT) Glucose, POC 123 70 - 199 mg/dL Blood 01/27/2024 3:13 AM CDT 01/27/2024 3:13 AM CDT Stan Treviño MD LAB POCT ORDERABLES - DEVICE Final Result Performing Organization Address City/[facility] Co de Phone Number JOR[facility] Department [place] [address] * POCT glucose (01/27/2024 2:14 AM CDT) Glucose, POC 119 70 - 199 mg/dL Blood 01/27/2024 2:14 AM CDT 01/27/2024 2:14 AM CDT Stan Treviño MD LAB POCT ORDERABLES - DEVICE Final Result Performing Organization Address [facility] Co de Phone Number [facility] [place] [address] * POCT glucose (01/27/2024 1:39 AM CDT) Glucose, POC 92 70 - 199 mg/dL Blood 01/27/2024 1:39 AM CDT 01/27/2024 1:39 AM CDT Stan Treviño MD LAB POCT ORDERABLES - DEVICE Final Result Performing Organization Address [facility]/[place] de Phone Number [facility] [place] [address] * POCT glucose (01/27/2024 1:19 AM CDT) Glucose, POC 73 70 - 199 mg/dL Blood 01/27/2024 1:19 AM CDT 01/27/2024 1:19 AM CDT Stan Treviño MD LAB POCT ORDERABLES - DEVICE Final Result Performing Organization Address [facility]/[place] [address] * (ABNORMAL) POCT glucose (01/27/2024 1:00 AM CDT) Glucose, POC 58(L) 70 - 199 mg/dL Blood 01/27/2024 1:00 AM CDT 01/27/2024 1:00 AM CDT us Stan Treviño MD LAB POCT ORDERABLES - DEVICE Final Result Performing Organization Address City/State/[facility] Co de Phone Number JOR[facility] Department [place] [address] * (ABNORMAL) eGFR (01/26/2024 9:20 PM CDT) eGFR 42(L) >=60 mL/min/1. 73 m2 Comment: Interpretive Data [...] interpretive data was last reviewed 2021. Blood 01/26/2024 9:20 PM CDT 01/26/2024 9:49 PM CDT us Nii Garces NP LAB BLOOD ORDERABLES Final R esult Performing Organization Address [facility]/ZIP Co de Phone Number [facility] Department [place] [address] * Type and screen (01/26/2024 9:20 PM CDT) Pathologist [facility] ABO Rh A Positive Sergio, indirect Negative [facility] Blood 01/26/2024 9:20 PM CDT 01/26/2024 9:55 PM CDT Narrative [facility] - 01/26/2024 10:57 PM CDT Has the patient had Daratumumab or Isatuximab in the past 6 months?->Unknown Eloisa Freeman NP LAB BLOOD BANK TEST ORDERABLES F inal Result Performing Organization Address [facility] Co de Phone Number [facility] Department [place] [address] * (ABNORMAL) CBC without differential (01/26/2024 9:20 PM CDT) Pathologist [facility] WBC 8.2 3.8 - 9.9 K/cumm Hgb 8.0(L) 11.9 - 15.5 g/dL [facility] Hct 24.6(L) 35.6 - 45.5 % [facility] Plt 211 150 - 400 K/cumm [facility] MPV 11.0 9.1 - 12.3 fL [facility] RBC 2.73(L) 3.90 - 5.20 M/cumm [facility] MCV 90.1 81.3 - 96.4 fL [facility] MCH 29.3 27.1 - 33.3 pg [facility] MCHC 32.5 32.3 - 35.7 g/dL [facility] RDW CV 13.9 11.1 - 14.9 % [facility] RDW SD 45.2 35.7 - 48.1 fL [facility] NRBC abs 0.00 0.00 - 0.01 K/cumm [facility] Blood 01/26/2024 9:20 PM CDT 01/26/2024 9:49 PM CDT Nii Garces NP LAB BLOOD ORDERABLES Final R esult J[facility] Department [place] [address] * (ABNORMAL) Basic metabolic panel (01/26/2024 9:20 PM CDT) [facility] Sodium 140 135 - 145 mmol/L Potassium, pl 4.6 3.3 - 4.9 mmol/L [facility] Chloride 105 97 - 110 mmol/L [facility] CO2 24 22 - 32 mmol/L [facility] Anion gap 11 2 - 15 mmol/L [facility] BUN 33(H) 6 - 25 mg/dL [facility] Creatinine 1.34(H) 0.60 - 1.10 mg/dL [facility] Glucose 138 70 - 199 mg/dL [facility] Comment: Interpretive Data Fasting glucose >/= [...] interpretive data was last revised 2022. Calcium 8.5 8.5 - 10.3 mg/dL [facility] Blood 01/26/2024 9:20 PM CDT 01/26/2024 9:49 PM CDT us Nii Garces NP LAB BLOOD ORDERABLES Final R esult [facility] Department [place] [address] * Phosphorus (01/26/2024 9:20 PM CDT) Phosphorus, pl 3.5 2.3 - 4.5 mg/dL Blood 01/26/2024 9:20 PM CDT 01/26/2024 9:49 PM CDT Nii Garces NP LAB BLOOD ORDERABLES Final R esult Performing Organization Address City/[facility]/ZIP Co de Phone Number [facility] [place] [address] * Magnesium (01/26/2024 9:20 PM CDT) Magnesium 1.9 1.4 - 2.5 mg/dL Blood 01/26/2024 9:20 PM CDT 01/26/2024 9:49 PM CDT us Nii Garces NP LAB BLOOD ORDERABLES Final R esult Performing Organization Address [facility] Co de Phone Number [facility] [place] [employer] [place] [address] * (ABNORMAL) POCT glucose (01/26/2024 7:51 PM CDT) Glucose, POC 201(H) 70 - 199 mg/dL Blood 01/26/2024 7:51 PM CDT 01/26/2024 7:51 PM CDT us Stan Treviño MD LAB POCT ORDERABLES - DEVICE Final Result Performing Organization Address City/[facility] Co de Phone Number [facility] [place] [address] * (ABNORMAL) POCT glucose (01/26/2024 6:48 PM CDT) Glucose, POC 234(H) 70 - 199 mg/dL Blood 01/26/2024 6:48 PM CDT 01/26/2024 6:48 PM CDT Stan Treviño MD LAB POCT ORDERABLES - DEVICE Final Result Performing Organization Address [facility]/[place] de Phone Number [facility] [place] [address] * POCT glucose (01/26/2024 5:42 PM CDT) Glucose, POC 95 70 - 199 mg/dL Blood 01/26/2024 5:42 PM CDT 01/26/2024 5:42 PM CDT Stan Treviño MD LAB POCT ORDERABLES - DEVICE Final Result Performing Organization Address [facility]/[place] de Phone Number [facility] [place] [address] * (ABNORMAL) POCT glucose (01/26/2024 5:21 PM CDT) Glucose, POC 65(L) 70 - 199 mg/dL Blood 01/26/2024 5:21 PM CDT 01/26/2024 5:21 PM CDT Stan Treviño MD LAB POCT ORDERABLES - DEVICE Final Result Performing Organization Address [facility]/[place] [address] * Infection Prevention Ema auris PCR, surveillance Axilla/Groin (01/26/2024 3:28 PM CDT) Pathologist [facility] Ema auris DNA Not Detected Not Detected [facility] Comment: Interpretive Data Testing performed by [facility] using the [employer] Liaison MDX Ema auris assay. ??This assay detects DNA from Ema auris using Real-Time PCR. ??This assay is laboratory developed and is not cleared by the [facility] Food and Drug Administration. ??The performance characteristics have been verified by the [facility]. Interpretive data was last reviewed on 09/04/2023 Axilla/Groin 01/26/2024 3:28 PM CDT 01/26/2024 4:31 PM CDT Jean Paul Platt MD LAB MICROBIOLOGY - GENERAL OR DERABLES Final Result Performing Organization Address City/[facility] Co de Phone Number [facility] [place] [address] [facility] * POCT glucose (01/26/2024 12:02 PM CDT) Glucose, POC 150 70 - 199 mg/dL Blood 01/26/2024 12:0 2 PM CDT 01/26/2024 12:02 PM CDT Stan Treviño MD LAB POCT ORDERABLES - DEVICE Final Result Performing Organization Address [facility] Co de Phone Number [facility] [place] [address] * POCT glucose (01/26/2024 8:18 AM CDT) Glucose, POC 94 70 - 199 mg/dL Blood 01/26/2024 8:18 AM CDT 01/26/2024 8:18 AM CDT Stan Treviño MD LAB POCT ORDERABLES - DEVICE Final Result Performing Organization Address [facility] Co de Phone Number [facility] [place] [address] * POCT glucose (01/26/2024 6:38 AM CDT) Glucose, POC 111 70 - 199 mg/dL Blood 01/26/2024 6:38 AM CDT 01/26/2024 6:38 AM CDT us Stan Treviño MD LAB POCT ORDERABLES - DEVICE Final Result Performing Organization Address [facility]/[place] de Phone Number [facility] [place] [address] * POCT glucose (01/26/2024 5:01 AM CDT) Glucose, POC 107 70 - 199 mg/dL Blood 01/26/2024 5:01 AM CDT 01/26/2024 5:01 AM CDT Stan Treviño MD LAB POCT ORDERABLES - DEVICE Final Result Performing Organization Address [facility] de Phone Number [facility] Department [place] [address] * (ABNORMAL) POCT glucose (01/26/2024 4:31 AM CDT) Glucose, POC 64(L) 70 - 199 mg/dL Blood 01/26/2024 4:31 AM CDT 01/26/2024 4:31 AM CDT Stan Treviño MD LAB POCT ORDERABLES - DEVICE Final Result Performing Organization Address [facility]/[place] [address] * ECG 12 lead (01/26/2024 2:54 AM CDT) Ventricular Rate EKG/Min 74 BPM [facility] Atrial Rate [address] [facility] [place]-Interval (MSEC) [address] [facility] QRS-Interval (MSEC) [address] [facility] QT-Interval (MSEC) [address] [facility] QTc [address] [facility] P Ross 50 degrees [facility] R Ross -57 degrees [facility] T Ross 27 degrees [facility] Diagnosis Sinus rhythm with frequent Premature ventricular complexes Right bundle branch block Left anterior fascicular block Bifascicular block Possible Lateral infarct (cited on or before 25-JAN-2024) Abnormal ECG When compared with ECG of 25-JAN-2024 13:07, (unconfirmed) Premature ventricular complexes are now Present Confirmed by MAHI RACHEL M.D ([id number]) on 01/27/2024 12:50:01 PM [facility] 01/26/2024 2:54 AM CDT 01/27/2024 12:50 PM CDT us Marisela Russell WHEELCHAIR VAN OPERATOR FIRST RESPONDER ECG ORDERABLES Final Res ult [facility] * POCT glucose (01/26/2024 2:43 AM CDT) Glucose, POC 83 70 - 199 mg/dL Blood 01/26/2024 2:43 AM CDT 01/26/2024 2:43 AM CDT Stan Treviño MD LAB POCT ORDERABLES - DEVICE Final Result [facility] Department [place] [address] * (ABNORMAL) eGFR (01/25/2024 9:40 PM CDT) eGFR 43(L) >=60 mL/min/1. 73 m2 Comment: Interpretive Data [...] interpretive data was last reviewed 2021. Blood 01/25/2024 9:40 PM CDT 01/25/2024 10:45 PM CDT Nii Garces NP LAB BLOOD ORDERABLES Final R esult [facility] Department [place] [address] * (ABNORMAL) CBC without differential (01/25/2024 9:40 PM CDT) WBC 8.6 3.8 - 9.9 K/cumm Hgb 8.5(L) 11.9 - 15.5 g/dL [facility] Hct 26.8(L) 35.6 - 45.5 % [facility] Plt 210 150 - 400 K/cumm [facility] MPV 11.3 9.1 - 12.3 fL [facility] RBC 2.95(L) 3.90 - 5.20 M/cumm [facility] MCV 90.8 81.3 - 96.4 fL [facility] MCH 28.8 27.1 - 33.3 pg [facility] MCHC 31.7(L) 32.3 - 35.7 g/dL [facility] RDW CV 13.8 11.1 - 14.9 % [facility] RDW SD 45.3 35.7 - 48.1 fL [facility] NRBC abs 0.00 0.00 - 0.01 K/cumm [facility] Blood 01/25/2024 9:40 PM CDT 01/25/2024 10:45 PM CDT Nii Garces NP LAB BLOOD ORDERABLES Final R esult [facility] Department [place] [address] * (ABNORMAL) Basic metabolic panel (01/25/2024 9:40 PM CDT) Sodium 141 135 - 145 mmol/L Potassium, pl 3.6 3.3 - 4.9 mmol/L [facility] Chloride 105 97 - 110 mmol/L [facility] CO2 26 22 - 32 mmol/L [facility] Anion gap 10 2 - 15 mmol/L [facility] BUN 36(H) 6 - 25 mg/dL [facility] Creatinine 1.30(H) 0.60 - 1.10 mg/dL [facility] Glucose 131 70 - 199 mg/dL [facility] Comment: Interpretive Data Fasting glucose >/= [...] interpretive data was last revised 2022. Calcium 8.6 8.5 - 10.3 mg/dL [facility] Blood 01/25/2024 9:40 PM CDT 01/25/2024 10:45 PM CDT us Nii Garces NP LAB BLOOD ORDERABLES Final R esult Performing Organization Address [facility] Co de Phone Number [facility] [place] [address] * Phosphorus (01/25/2024 9:40 PM CDT) Phosphorus, pl 4.2 2.3 - 4.5 mg/dL Blood 01/25/2024 9:40 PM CDT 01/25/2024 10:45 PM CDT Nii Garces NP LAB BLOOD ORDERABLES Final R esult Performing Organization Address [facility] Co de Phone Number [facility] [place] [address] * Magnesium (01/25/2024 9:40 PM CDT) Magnesium 2.1 1.4 - 2.5 mg/dL Blood 01/25/2024 9:40 PM CDT 01/25/2024 10:45 PM CDT Nii Garces NP LAB BLOOD ORDERABLES Final R esult Performing Organization Address [facility] Co de Phone Number [facility] [place] [address] * POCT glucose (01/25/2024 9:39 PM CDT) Glucose, POC 146 70 - 199 mg/dL Blood 01/25/2024 9:39 PM CDT 01/25/2024 9:39 PM CDT us Stan Treviño MD LAB POCT ORDERABLES - DEVICE Final Result Performing Organization Address City/[facility]/ZIP Co de Phone Number [facility] [place] [address] * POCT glucose (01/25/2024 6:40 PM CDT) Glucose, POC 197 70 - 199 mg/dL Blood 01/25/2024 6:40 PM CDT 01/25/2024 6:40 PM CDT Stan Treviño MD LAB POCT ORDERABLES - DEVICE Final Result Performing Organization Address [facility] Co de Phone Number [facility] [place] [address] * POCT glucose (01/25/2024 5:32 PM CDT) Glucose, POC 111 70 - 199 mg/dL Blood 01/25/2024 5:32 PM CDT 01/25/2024 5:32 PM CDT Stan Treviño MD LAB POCT ORDERABLES - DEVICE Final Result Performing Organization Address [facility]/[place] de Phone Number [facility] [place] [address] * POCT glucose (01/25/2024 5:16 PM CDT) Glucose, POC 72 70 - 199 mg/dL Blood 01/25/2024 5:16 PM CDT 01/25/2024 5:16 PM CDT Stan Treviño MD LAB POCT ORDERABLES - DEVICE Final Result Performing Organization Address [facility] Co de Phone Number [facility] [place] [address] * (ABNORMAL) POCT glucose (01/25/2024 5:00 PM CDT) Glucose, POC 61(L) 70 - 199 mg/dL Blood 01/25/2024 5:00 PM CDT 01/25/2024 5:00 PM CDT us Stan Treviño MD LAB POCT ORDERABLES - DEVICE Final Result [facility] Department [place] [address] * ECG 12 lead (01/25/2024 1:07 PM CDT) Ventricular Rate EKG/Min 74 BPM [facility] Atrial Rate [address] [facility] [place]-Interval (MSEC) [address] [facility] QRS-Interval (MSEC) [address] [facility] QT-Interval (MSEC) 442 ms [facility] QTc 490 ms [facility] P Ross 55 degrees [facility] R Ross -53 degrees [facility] T Ross 27 degrees [facility] Diagnosis Normal sinus rhythm Right bundle branch block Left anterior fascicular block Bifascicular block Possible Lateral infarct , age undetermined Abnormal ECG Confirmed by Anu CLARK, [facility] ([id number]) on 01/27/2024 2:47:59 PM [facility] 01/25/2024 1:07 PM CDT 01/27/2024 2:47 PM CDT us Marisela Russell WHEELCHAIR VAN OPERATOR FIRST RESPONDER ECG ORDERABLES Final Res ult Performing Organization Address [facility] Co de Phone Number [facility] * XR Chest Pa Lateral 2 Views (01/25/2024 12:44 PM CDT) Anatomical Region Laterality Modality Body, Chest N/A Computed Radiogr aphy 01/25/2024 4:09 PM CDT Impressions 01/25/2024 4:09 PM CDT Comparison is made to prior study of 01/24/2024 2:45 PM. In the interval, no change in findings of median sternotomy and left atrial appendage clip. Tiny pleural effusions are seen but there is no pulmonary edema or pneumonia. No pneumothorax. The heart size and mediastinal contour are unchanged. Electronically signed by: Robert Fiore M.D. Narrative 01/25/2024 4:09 PM CDT EXAMINATION: 2 view chest radiograph Procedure Note Robert Fiore MD - 01/25/2024 EXAMINATION: 2 view chest radiograph IMPRESSION: Comparison is made to prior study of 01/24/2024 2:45 PM. In the interval, no change in findings of median sternotomy and left atrial appendage clip. Tiny pleural effusions are seen but there is no pulmonary edema or pneumonia. No pneumothorax. The heart size and mediastinal contour are unchanged. Electronically signed by: Robert Fiore M.D. Marisela Russell WHEELCHAIR VAN OPERATOR FIRST RESPONDER IMG XR PROCEDURES Final R esult * (ABNORMAL) POCT glucose (01/25/2024 11:10 AM CDT) Glucose, POC 221(H) 70 - 199 mg/dL Blood 01/25/2024 11:1 0 AM CDT 01/25/2024 11:10 AM CDT Stan Treviño MD LAB POCT ORDERABLES - DEVICE Final Result Performing Organization Address [facility] Co de Phone Number [facility] [place] [address] * POCT glucose (01/25/2024 8:28 AM CDT) Glucose, POC 124 70 - 199 mg/dL Blood 01/25/2024 8:28 AM CDT 01/25/2024 8:28 AM CDT Stan Treviño MD LAB POCT ORDERABLES - DEVICE Final Result Performing Organization Address [facility] Co de Phone Number [facility] Department [place] [address] * POCT glucose (01/25/2024 2:02 AM CDT) Glucose, POC 109 70 - 199 mg/dL Blood 01/25/2024 2:02 AM CDT 01/25/2024 2:02 AM CDT us Stan Treviño MD LAB POCT ORDERABLES - DEVICE Final Result Performing Organization Address City/State/ZIP Co mi Phone Number [facility] Department [place] [address] * (ABNORMAL) eGFR (01/24/2024 8:13 PM CDT) eGFR 55(L) >=60 mL/min/1. 73 m2 Comment: Interpretive Data [...] interpretive data was last reviewed 2021. Blood 01/24/2024 8:13 PM CDT 01/24/2024 8:52 PM CDT Nii Garces NP LAB BLOOD ORDERABLES Final R esult [facility] Department [place] [address] * (ABNORMAL) CBC without differential (01/24/2024 8:13 PM CDT) [facility] WBC 8.6 3.8 - 9.9 K/cumm Hgb 8.5(L) 11.9 - 15.5 g/dL [facility] Hct 27.3(L) 35.6 - 45.5 % [facility] Plt 169 150 - 400 K/cumm [facility] MPV 11.1 9.1 - 12.3 fL [facility] RBC 2.96(L) 3.90 - 5.20 M/cumm [facility] MCV 92.2 81.3 - 96.4 fL [facility] MCH 28.7 27.1 - 33.3 pg [facility] MCHC 31.1(L) 32.3 - 35.7 g/dL [facility] RDW CV 13.9 11.1 - 14.9 % [facility] RDW SD 46.5 35.7 - 48.1 fL [facility] NRBC abs 0.00 0.00 - 0.01 K/cumm [facility] Blood 01/24/2024 8:13 PM CDT 01/24/2024 8:53 PM CDT Nii Garces NP LAB BLOOD ORDERABLES Final R esult [facility] Department [place] [address] * (ABNORMAL) Basic metabolic panel (01/24/2024 8:13 PM CDT) Pathologist [facility] Sodium 143 135 - 145 mmol/L Potassium, pl 4.0 3.3 - 4.9 mmol/L [facility] Chloride 108 97 - 110 mmol/L [facility] CO2 23 22 - 32 mmol/L [facility] Anion gap 12 2 - 15 mmol/L [facility] BUN 33(H) 6 - 25 mg/dL [facility] Creatinine 1.06 0.60 - 1.10 mg/dL [facility] Glucose 140 70 - 199 mg/dL [facility] Comment: Interpretive Data Fasting glucose >/= [...] interpretive data was last revised 2022. Calcium 8.2(L) 8.5 - 10.3 mg/dL [facility] Blood 01/24/2024 8:13 PM CDT 01/24/2024 8:52 PM CDT Nii Garces NP LAB BLOOD ORDERABLES Final R esult Performing Organization Address City/[facility] Co de Phone Number [facility] [place] [address] * Phosphorus (01/24/2024 8:13 PM CDT) Pathologist [facility] Phosphorus, pl 3.1 2.3 - 4.5 mg/dL Blood 01/24/2024 8:13 PM CDT 01/24/2024 8:52 PM CDT Nii Garces NP LAB BLOOD ORDERABLES Final R esult Performing Organization Address City/[facility] Co de Phone Number [facility] Department [place] [address] * Magnesium (01/24/2024 8:13 PM CDT) Magnesium 2.0 1.4 - 2.5 mg/dL Blood 01/24/2024 8:13 PM CDT 01/24/2024 8:52 PM CDT Nii Garces NP LAB BLOOD ORDERABLES Final R esult Performing Organization Address [facility]/ZIP Co de Phone Number [facility] [place] [address] * POCT glucose (01/24/2024 7:27 PM CDT) Glucose, POC 161 70 - 199 mg/dL Blood 01/24/2024 7:27 PM CDT 01/24/2024 7:27 PM CDT Stan Treviño MD LAB POCT ORDERABLES - DEVICE Final Result Performing Organization Address [facility] Co de Phone Number [facility] [place] [address] * POCT glucose (01/24/2024 4:26 PM CDT) Glucose, POC 97 70 - 199 mg/dL Blood 01/24/2024 4:26 PM CDT 01/24/2024 4:26 PM CDT Stan Treviño MD LAB POCT ORDERABLES - DEVICE Final Result Performing Organization Address [facility] Co de Phone Number [facility] [place] [address] * XR Chest 1 View - in PM (01/24/2024 3:15 PM CDT) Anatomical Region Laterality Modality Body, Chest N/A Computed Radiogr aphy 01/24/2024 4:47 PM CDT Impressions 01/24/2024 5:19 PM CDT The current study is compared with the prior radiograph dated ??01/23/2024. ??Median sternal plates in place. ??Left atrial appendage clip. There are patchy areas of atelectasis bilaterally. ??Small lung volumes. ??There may be small bilateral pleural effusions. ??There is no pneumothorax. The heart and mediastinal contours are stable. Dictated by: Ck South MD The radiology attending physician has personally reviewed this study, and had reviewed and/or edited this written report and agrees with it. Electronically signed by: Ceasar Sesay M.D. Narrative 01/24/2024 5:19 PM CDT EXAMINATION: 1 view chest radiograph Procedure Note Ceasar Sesay MD - 01/24/2024 EXAMINATION: 1 view chest radiograph IMPRESSION: The current study is compared with the prior radiograph dated 01/23/2024. Median sternal plates in place. Left atrial appendage clip. There are patchy areas of atelectasis bilaterally. Small lung volumes. There may be small bilateral pleural effusions. There is no pneumothorax. The heart and mediastinal contours are stable. Dictated by: Ck South MD The radiology attending physician has personally reviewed this study, and had reviewed and/or edited this written report and agrees with it. Electronically signed by: Ceasar Sesay M.D. us Cinthia BATISTA IMG XR PROCEDURES Phyllis l Result * POCT glucose (01/24/2024 12:27 PM CDT) Glucose, POC 125 70 - 199 mg/dL Blood 01/24/2024 12:2 7 PM CDT 01/24/2024 12:27 PM CDT us Stan Treviño MD LAB POCT ORDERABLES - DEVICE Final Result [facility] [place] [address] * POCT glucose (01/24/2024 7:32 AM CDT) Glucose, POC 143 70 - 199 mg/dL Blood 01/24/2024 7:32 AM CDT 01/24/2024 7:32 AM CDT Stan Treviño MD LAB POCT ORDERABLES - DEVICE Final Result Performing Organization Address [facility]/[place] [address] * POCT glucose (01/24/2024 1:43 AM CDT) Glucose, POC 194 70 - 199 mg/dL Blood 01/24/2024 1:43 AM CDT 01/24/2024 1:43 AM CDT Stan Treviño MD LAB POCT ORDERABLES - DEVICE Final Result Performing Organization Address [facility]/[place] [address] * (ABNORMAL) eGFR (01/23/2024 10:31 PM CDT) Pathologist [facility] eGFR 44(L) >=60 mL/min/1. 73 m2 Comment: Interpretive Data [...] interpretive data was last reviewed 2021. Blood 01/23/2024 10:3 1 PM CDT 01/23/2024 11:08 PM CDT us Nii Garces NP LAB BLOOD ORDERABLES Final R esult [facility] Department [place] [address] * (ABNORMAL) CBC without differential (01/23/2024 10:31 PM CDT) WBC 7.2 3.8 - 9.9 K/cumm Hgb 8.4(L) 11.9 - 15.5 g/dL [facility] Hct 25.8(L) 35.6 - 45.5 % [facility] Plt 155 150 - 400 K/cumm [facility] MPV 11.5 9.1 - 12.3 fL [facility] RBC 2.84(L) 3.90 - 5.20 M/cumm [facility] MCV 90.8 81.3 - 96.4 fL [facility] MCH 29.6 27.1 - 33.3 pg [facility] MCHC 32.6 32.3 - 35.7 g/dL [facility] RDW CV 13.9 11.1 - 14.9 % [facility] RDW SD 46.9 35.7 - 48.1 fL [facility] NRBC abs 0.00 0.00 - 0.01 K/cumm [facility] Blood 01/23/2024 10:3 1 PM CDT 01/23/2024 10:59 PM CDT us Nii Garces NP LAB BLOOD ORDERABLES Final R esult [facility] Department [place] [address] * (ABNORMAL) Basic metabolic panel (01/23/2024 10:31 PM CDT) [facility] Sodium 139 135 - 145 mmol/L Potassium, pl 4.4 3.3 - 4.9 mmol/L [facility] Chloride 106 97 - 110 mmol/L [facility] CO2 22 22 - 32 mmol/L [facility] Anion gap 11 2 - 15 mmol/L [facility] BUN 43(H) 6 - 25 mg/dL [facility] Creatinine 1.28(H) 0.60 - 1.10 mg/dL [facility] Glucose 242(H) 70 - 199 mg/dL [facility] Comment: Interpretive Data Fasting glucose >/= [...] interpretive data was last revised 2022. Calcium 8.3(L) 8.5 - 10.3 mg/dL [facility] Blood 01/23/2024 10:3 1 PM CDT 01/23/2024 11:08 PM CDT us Nii Garces NP LAB BLOOD ORDERABLES Final R esult [facility] Department [place] [address] * Phosphorus (01/23/2024 10:31 PM CDT) Phosphorus, pl 2.6 2.3 - 4.5 mg/dL Blood 01/23/2024 10:3 1 PM CDT 01/23/2024 11:08 PM CDT Nii Garces NP LAB BLOOD ORDERABLES Final R esult [facility] [place] [address] * Magnesium (01/23/2024 10:31 PM CDT) Pathologist [facility] Magnesium 2.2 1.4 - 2.5 mg/dL Blood 01/23/2024 10:3 1 PM CDT 01/23/2024 11:08 PM CDT Nii Garces NP LAB BLOOD ORDERABLES Final R esult Performing Organization Address [facility] Co de Phone Number [facility] [place] [address] * Type and screen (01/23/2024 10:31 PM CDT) Pathologist [facility] ABO Rh A Positive Sergio, indirect Negative [facility] Blood 01/23/2024 10:3 1 PM CDT 01/23/2024 11:07 PM CDT Narrative [facility] - 01/24/2024 12:04 AM CDT Has the patient had Daratumumab or Isatuximab in the past 6 months?->Unknown us Stan Treviño MD LAB BLOOD BANK TEST ORDERABLE S Final Result Performing Organization Address City/[facility]/ZIP Co de Phone Number [facility] [place] [place] [address] * (ABNORMAL) POCT glucose (01/23/2024 7:57 PM CDT) Glucose, POC 272(H) 70 - 199 mg/dL Blood 01/23/2024 7:57 PM CDT 01/23/2024 7:57 PM CDT us Stan Treviño MD LAB POCT ORDERABLES - DEVICE Final [facility] [place] [address] * XR Chest 1 View - in PM (01/23/2024 7:56 PM CDT) Anatomical Region Laterality Modality Body, Chest N/A Computed Radiogr aphy 01/24/2024 11:5 9 AM CDT Impressions 01/24/2024 11:59 AM CDT The current study is compared with prior chest radiograph dated 01/23/2024. Portable upright frontal view chest radiograph: Sternal plates are in place and appear unchanged. ??Left atrial appendage clip. ??Decrease in lung volumes from prior study with increased atelectasis. ??Left lateral pneumothorax is no longer seen. ??No pneumonia, pulmonary edema, or pleural effusion is demonstrated. Cardiomediastinal silhouette is stable. Kylah Acosta (medical student) participated in the interpretation of this imaging study. Electronically signed by: Guanakito Reed M.D. Narrative 01/24/2024 11:59 AM CDT EXAMINATION: 1 view chest radiograph Procedure Note Guanakito Reed MD - 01/24/2024 EXAMINATION: 1 view chest radiograph IMPRESSION: The current study is compared with prior chest radiograph dated 01/23/2024. Portable upright frontal view chest radiograph: Sternal plates are in place and appear unchanged. Left atrial appendage clip. Decrease in lung volumes from prior study with increased atelectasis. Left lateral pneumothorax is no longer seen. No pneumonia, pulmonary edema, or pleural effusion is demonstrated. Cardiomediastinal silhouette is stable. Kylah Acosta (medical student) participated in the interpretation of this imaging study. Electronically signed by: Guanakito Reed M.D. Cinthia Stokes PA IMG XR PROCEDURES Phyllis l Result * XR Chest PA Lateral 2 Views (01/23/2024 6:23 PM CDT) Anatomical Region Laterality Modality Body, Chest N/A Computed Radiogr aphy 01/24/2024 11:5 8 AM CDT Impressions 01/24/2024 11:58 AM CDT The current study is compared with prior chest radiograph dated 01/22/2024. ?? Posteroanterior and lateral views of the chest: Interval removal of left thoracostomy tube. ??Median sternotomy plates are unchanged. Left atrial appendage clip. ??Epicardial pacing wires. ??Surgical clips overlie left border of the cardiac silhouette. Patchy areas of atelectasis are seen bilaterally, left greater than right, mainly located in bilateral mid and lower lung zones. Miniscule left lateral apical pneumothorax. ??Small bilateral pleural effusions. No pneumonia or pulmonary edema is demonstrated. Cardiomediastinal silhouette is stable. Kylah Acosta (medical student) participated in the interpretation of this imaging study. Electronically signed by: Guanakito Reed M.D. Narrative 01/24/2024 11:58 AM CDT EXAMINATION: 2 view chest radiograph Procedure Note Guanakito Reed MD - 01/24/2024 EXAMINATION: 2 view chest radiograph IMPRESSION: The current study is compared with prior chest radiograph dated 01/22/2024. Posteroanterior and lateral views of the chest: Interval removal of left thoracostomy tube. Median sternotomy plates are unchanged. Left atrial appendage clip. Epicardial pacing wires. Surgical clips overlie left border of the cardiac silhouette. Patchy areas of atelectasis are seen bilaterally, left greater than right, mainly located in bilateral mid and lower lung zones. Miniscule left lateral apical pneumothorax. Small bilateral pleural effusions. No pneumonia or pulmonary edema is demonstrated. Cardiomediastinal silhouette is stable. Kylah Acosta (medical student) participated in the interpretation of this imaging study. Electronically signed by: Guanakito Reed M.D. us Nii Garces WHEELCHAIR VAN OPERATOR FIRST RESPONDER IMG XR PROCEDURES Final Resu lt * POCT glucose (01/23/2024 5:59 PM CDT) Glucose, POC 142 70 - 199 mg/dL Blood 01/23/2024 5:59 PM CDT 01/23/2024 5:59 PM CDT Stan Treviño MD LAB POCT ORDERABLES - DEVICE Final Result Performing Organization Address [facility] de Phone Number [facility] Department [place] [address] * POCT glucose (01/23/2024 5:36 PM CDT) Glucose, POC 97 70 - 199 mg/dL Blood 01/23/2024 5:36 PM CDT 01/23/2024 5:36 PM CDT Stan Treviño MD LAB POCT ORDERABLES - DEVICE Final Result Performing Organization Address [facility] de Phone Number [facility] Department [place] [address] * (ABNORMAL) POCT glucose (01/23/2024 5:09 PM CDT) Glucose, POC 56(L) 70 - 199 mg/dL Blood 01/23/2024 5:09 PM CDT 01/23/2024 5:09 PM CDT Stan Treviño MD LAB POCT ORDERABLES - DEVICE Final Result Performing Organization Address [facility] Co de Phone Number [facility] Department [place] [address] * (ABNORMAL) POCT glucose (01/23/2024 11:34 AM CDT) Glucose, POC 217(H) 70 - 199 mg/dL Blood 01/23/2024 11:3 4 AM CDT 01/23/2024 11:34 AM CDT us Stan Treviño MD LAB POCT ORDERABLES - DEVICE Final Result Performing Organization Address [facility] [place] [address] * POCT glucose (01/23/2024 7:39 AM CDT) Glucose, POC 152 70 - 199 mg/dL Blood 01/23/2024 7:39 AM CDT 01/23/2024 7:39 AM CDT us Stan Treviño MD LAB POCT ORDERABLES - DEVICE Final Result Performing Organization Address [facility] [place] [address] * POCT glucose (01/23/2024 2:16 AM CDT) Glucose, POC 141 70 - 199 mg/dL Blood 01/23/2024 2:16 AM CDT 01/23/2024 2:16 AM CDT us Stan Treviño MD LAB POCT ORDERABLES - DEVICE Final Result Performing Organization Address City/[facility] Co de Phone Number [facility] [place] [address] * POCT glucose (01/22/2024 11:19 PM CDT) Glucose, POC 183 70 - 199 mg/dL Blood 01/22/2024 11:1 9 PM CDT 01/22/2024 11:19 PM CDT us Stan Treviño MD LAB POCT ORDERABLES - DEVICE Final Result Performing Organization Address City/State/[facility] Co de Phone Number [facility] Department [place] [address] * (ABNORMAL) eGFR (01/22/2024 10:21 PM CDT) Pathologist [facility] eGFR 39(L) >=60 mL/min/1. 73 m2 Comment: Interpretive Data [...] interpretive data was last reviewed 2021. Blood 01/22/2024 10:2 1 PM CDT 01/22/2024 10:41 PM CDT us Nii Garces NP LAB BLOOD ORDERABLES Final R esult Performing Organization Address [facility] Co de Phone Number [facility] Department [place] [address] * (ABNORMAL) CBC without differential (01/22/2024 10:21 PM CDT) WBC 11.2(H) 3.8 - 9.9 K/cumm Hgb 8.7(L) 11.9 - 15.5 g/dL [facility] Hct 26.9(L) 35.6 - 45.5 % [facility] Plt 136(L) 150 - 400 K/cumm [facility] MPV 11.6 9.1 - 12.3 fL [facility] RBC 2.96(L) 3.90 - 5.20 M/cumm [facility] MCV 90.9 81.3 - 96.4 fL [facility] MCH 29.4 27.1 - 33.3 pg [facility] MCHC 32.3 32.3 - 35.7 g/dL [facility] RDW CV 14.3 11.1 - 14.9 % [facility] RDW SD 47.3 35.7 - 48.1 fL [facility] NRBC abs 0.00 0.00 - 0.01 K/cumm [facility] Blood 01/22/2024 10:2 1 PM CDT 01/22/2024 10:40 PM CDT Nii Garces NP LAB BLOOD ORDERABLES Final R esult Performing Organization Address City/[facility]/ZIP Co de Phone Number [facility] Department [place] [address] * (ABNORMAL) Basic metabolic panel (01/22/2024 10:21 PM CDT) Sodium 139 135 - 145 mmol/L Potassium, pl 4.4 3.3 - 4.9 mmol/L [facility] Chloride 106 97 - 110 mmol/L [facility] CO2 23 22 - 32 mmol/L [facility] Anion gap 10 2 - 15 mmol/L [facility] BUN 43(H) 6 - 25 mg/dL [facility] Creatinine 1.41(H) 0.60 - 1.10 mg/dL [facility] Glucose 195 70 - 199 mg/dL [facility] Comment: Interpretive Data Fasting glucose >/= [...] interpretive data was last revised 2022. Calcium 8.6 8.5 - 10.3 mg/dL [facility] Blood 01/22/2024 10:2 1 PM CDT 01/22/2024 10:41 PM CDT Nii Garces NP LAB BLOOD ORDERABLES Final R esult [facility] [place] [address] * (ABNORMAL) Phosphorus (01/22/2024 10:21 PM CDT) Pathologist [facility] Phosphorus, pl 2.2(L) 2.3 - 4.5 mg/dL Blood 01/22/2024 10:2 1 PM CDT 01/22/2024 10:41 PM CDT Nii Garces NP LAB BLOOD ORDERABLES Final R esult [facility] Department [place] [address] * Magnesium (01/22/2024 10:21 PM CDT) Magnesium 2.4 1.4 - 2.5 mg/dL Blood 01/22/2024 10:2 1 PM CDT 01/22/2024 10:41 PM CDT Nii Garces NP LAB BLOOD ORDERABLES Final R esult Performing Organization Address City/[facility]/ZIP Co de Phone Number [facility] Department [place] [address] * POCT glucose (01/22/2024 8:38 PM CDT) [facility] Glucose, POC 188 70 - 199 mg/dL Blood 01/22/2024 8:38 PM CDT 01/22/2024 8:38 PM CDT Stan Treviño MD LAB POCT ORDERABLES - DEVICE Final Result Performing Organization Address [facility] Co de Phone Number [facility] Department [place] [address] * XR Chest 1 View - in PM (01/22/2024 5:54 PM CDT) Anatomical Region Laterality Modality Body, Chest N/A Digital Radiogra phy 01/23/2024 11:1 2 AM CDT Impressions 01/23/2024 11:16 AM CDT The current study is compared with the prior radiograph dated ??01/22/2024 at 2:41 PM. ??Median sternal plates in place. ??Left atrial appendage clip. ??Epicardial pacing wires. ??A left thoracostomy tube. ??Small lung volumes with patchy areas of atelectasis in both lungs. ??No definite pleural effusion. ??No pneumothorax. Dictated by: Ck South MD The radiology attending physician has personally reviewed this study, and had reviewed and/or edited this written report and agrees with it. Electronically signed by: Erica Mustafa M.D. Narrative 01/23/2024 11:16 AM CDT EXAMINATION: 1 view chest radiograph Procedure Note Erica Mustafa MD - 01/23/2024 EXAMINATION: 1 view chest radiograph IMPRESSION: The current study is compared with the prior radiograph dated 01/22/2024 at 2:41 PM. Median sternal plates in place. Left atrial appendage clip. Epicardial pacing wires. A left thoracostomy tube. Small lung volumes with patchy areas of atelectasis in both lungs. No definite pleural effusion. No pneumothorax. Dictated by: Ck South MD The radiology attending physician has personally reviewed this study, and had reviewed and/or edited this written report and agrees with it. Electronically signed by: Erica Mustafa M.D. us Cinthia BATISTA IMG XR PROCEDURES Phyllis l Result * POCT glucose (01/22/2024 4:35 PM CDT) [facility] Signature Glucose, POC 94 70 - 199 mg/dL Blood 01/22/2024 4:35 PM CDT 01/22/2024 4:35 PM CDT us Stan Treviño MD LAB POCT ORDERABLES - DEVICE Final Result [facility] Department [place] [address] * XR Chest 1 View (01/22/2024 2:43 PM CDT) Anatomical Region Laterality Modality Body, Chest N/A Digital Radiogra phy 01/22/2024 3:39 PM CDT Impressions 01/22/2024 3:46 PM CDT The current study is compared with the prior radiograph dated ??01/21/2024. ??Mediastinal clips in place. ??Left thoracostomy tube in place. ??Left atrial appendage clip. ??Epicardial pacing wires. Interval removal of mediastinal and pericardial drain. ??There is increasing left retrocardiac opacity which may reflect atelectasis or the sequela of aspiration. ??Small left pleural effusion. ??Mild bibasilar atelectasis. ??There is no pneumothorax.. ??The heart and mediastinal contours are stable.. Dictated by: Ck South MD The radiology attending physician has personally reviewed this study, and had reviewed and/or edited this written report and agrees with it. Electronically signed by: Erica Mustafa M.D. Narrative 01/22/2024 3:46 PM CDT EXAMINATION: 1 view chest radiograph Procedure Note Erica Mustafa MD - 01/22/2024 EXAMINATION: 1 view chest radiograph IMPRESSION: The current study is compared with the prior radiograph dated 01/21/2024. Mediastinal clips in place. Left thoracostomy tube in place. Left atrial appendage clip. Epicardial pacing wires. Interval removal of mediastinal and pericardial drain. There is increasing left retrocardiac opacity which may reflect atelectasis or the sequela of aspiration. Small left pleural effusion. Mild bibasilar atelectasis. There is no pneumothorax.. The heart and mediastinal contours are stable.. Dictated by: Ck South MD The radiology attending physician has personally reviewed this study, and had reviewed and/or edited this written report and agrees with it. Electronically signed by: Erica Mustafa M.D. us Nii Garces WHEELCHAIR VAN OPERATOR FIRST RESPONDER IMG XR PROCEDURES Final Resu lt * POCT glucose (01/22/2024 12:03 PM CDT) [facility] Signature Glucose, POC 196 70 - 199 mg/dL Blood 01/22/2024 12:0 3 PM CDT 01/22/2024 12:03 PM CDT us Stan Treviño MD LAB POCT ORDERABLES - DEVICE Final Result [facility] Department [place] [address] * POCT glucose (01/22/2024 7:29 AM CDT) Glucose, POC 161 70 - 199 mg/dL Blood 01/22/2024 7:29 AM CDT 01/22/2024 7:29 AM CDT us Stan Treviño MD LAB POCT ORDERABLES - DEVICE Final Result [facility] Department [place] [address] * (ABNORMAL) eGFR (01/22/2024 5:58 AM CDT) eGFR 35(L) >=60 mL/min/1. 73 m2 Comment: Interpretive Data [...] interpretive data was last reviewed 2021. Blood 01/22/2024 5:5 8 AM CDT 01/22/2024 6:26 AM CDT us Bri Lindo WHEELCHAIR VAN OPERATOR FIRST RESPONDER LAB BLOOD ORDERABLES Final Result Performing Organization Address [facility] [place] [address] * Phosphorus (01/22/2024 5:58 AM CDT) Phosphorus, pl 2.8 2.3 - 4.5 mg/dL Blood 01/22/2024 5:58 AM CDT 01/22/2024 6:26 AM CDT us Bri Lindo WHEELCHAIR VAN OPERATOR FIRST RESPONDER LAB BLOOD ORDERABLES Final Result Performing Organization Address [facility] [place] [address] * Magnesium (01/22/2024 5:58 AM CDT) Pathologist [facility] Magnesium 2.3 1.4 - 2.5 mg/dL Blood 01/22/2024 5:58 AM CDT 01/22/2024 6:26 AM CDT us Bri Lindo WHEELCHAIR VAN OPERATOR FIRST RESPONDER LAB BLOOD ORDERABLES Final Result Performing Organization Address [facility] [place] [address] * (ABNORMAL) Basic metabolic panel (01/22/2024 5:58 AM CDT) Sodium 139 135 - 145 mmol/L Potassium, pl 4.5 3.3 - 4.9 mmol/L [facility] Chloride 106 97 - 110 mmol/L [facility] CO2 25 22 - 32 mmol/L [facility] Anion gap 8 2 - 15 mmol/L [facility] BUN 40(H) 6 - 25 mg/dL [facility] Creatinine 1.53(H) 0.60 - 1.10 mg/dL [facility] Glucose 162 70 - 199 mg/dL [facility] Comment: Interpretive Data Fasting glucose >/= [...] interpretive data was last revised 2022. Calcium 8.9 8.5 - 10.3 mg/dL [facility] Blood 01/22/2024 5:58 AM CDT 01/22/2024 6:26 AM CDT us Bri Lindo NP LAB BLOOD ORDERABLES Final Result [facility] Department [place] [address] * (ABNORMAL) CBC without differential (01/22/2024 5:58 AM CDT) WBC 14.0(H) 3.8 - 9.9 K/cumm Hgb 8.7(L) 11.9 - 15.5 g/dL [facility] Hct 26.9(L) 35.6 - 45.5 % [facility] Plt 134(L) 150 - 400 K/cumm [facility] MPV 11.9 9.1 - 12.3 fL [facility] RBC 2.88(L) 3.90 - 5.20 M/cumm [facility] MCV 93.4 81.3 - 96.4 fL [facility] MCH 30.2 27.1 - 33.3 pg [facility] MCHC 32.3 32.3 - 35.7 g/dL [facility] RDW CV 14.1 11.1 - 14.9 % [facility] RDW SD 48.2(H) 35.7 - 48.1 fL [facility] NRBC abs 0.00 0.00 - 0.01 K/cumm [facility] Blood 01/22/2024 5:58 AM CDT 01/22/2024 6:26 AM CDT Bri Lindo WHEELCHAIR VAN OPERATOR FIRST RESPONDER LAB BLOOD ORDERABLES Final Result Performing Organization Address [facility]/[place] de Phone Number [facility] [place] [address] * Infection Prevention Ema auris PCR, surveillance Axilla/Groin (01/22/2024 5:55 AM CDT) Pathologist [facility] Ema auris DNA Not Detected Not Detected [facility] Comment: Interpretive Data Testing performed by [facility] using the [employer] Liaison MDX Ema auris assay. ??This assay detects DNA from Ema auris using Real-Time PCR. ??This assay is laboratory developed and is not cleared by the [facility] Food and Drug Administration. ??The performance characteristics have been verified by the [facility]. Interpretive data was last reviewed on 09/04/2023 Axilla/Groin 01/22/2024 5:55 AM CDT 01/22/2024 6:35 AM CDT us Jean Paul Platt MD LAB MICROBIOLOGY - GENERAL OR DERABLES Final Result Performing Organization Address [facility]/[place] de Phone Number [facility] Department [place] [address] [facility] * POCT glucose (01/22/2024 2:42 AM CDT) Pathologist [facility] Glucose, POC 165 70 - 199 mg/dL Blood 01/22/2024 2:42 AM CDT 01/22/2024 2:42 AM CDT Stan Treviño MD LAB POCT ORDERABLES - DEVICE Final Result [facility] Department [place] [address] * POCT glucose (01/22/2024 12:53 AM CDT) Glucose, POC 167 70 - 199 mg/dL Blood 01/22/2024 12:5 3 AM CDT 01/22/2024 12:53 AM CDT Stan Treviño MD LAB POCT ORDERABLES - DEVICE Final Result Performing Organization Address City/[facility] Co de Phone Number [facility] Department [place] [address] * XR Chest 1 View - in PM (01/21/2024 8:54 PM CDT) Anatomical Region Laterality Modality Body, Chest N/A Digital Radiogra phy 01/22/2024 11:0 2 AM CDT Impressions 01/22/2024 11:02 AM CDT There are postoperative changes of median sternotomy and left atrial appendage clip placement. ??A mediastinal and pericardial drain and left chest tube remain present. ??Epicardial pacing wires are present. ??Sternal plates are likely in unchanged alignment when accounting for the rotated position of the radiograph. There is mild patchy airspace opacification the left lung base which may represent atelectasis. ??There may be a trace left pleural effusion. ??There is no pneumothorax. ??The cardiomediastinal silhouette is unchanged. Electronically signed by: Pool Sanz M.D. Narrative 01/22/2024 11:02 AM CDT EXAMINATION: XR CHEST 1 VIEW COMPARISON: 01/20/2024 Procedure Note Pool Sanz MD PhD - 01/22/2024 EXAMINATION: XR CHEST 1 VIEW COMPARISON: 01/20/2024 IMPRESSION: There are postoperative changes of median sternotomy and left atrial appendage clip placement. A mediastinal and pericardial drain and left chest tube remain present. Epicardial pacing wires are present. Sternal plates are likely in unchanged alignment when accounting for the rotated position of the radiograph. There is mild patchy airspace opacification the left lung base which may represent atelectasis. There may be a trace left pleural effusion. There is no pneumothorax. The cardiomediastinal silhouette is unchanged. Electronically signed by: Pool Sanz M.D. Cinthia BATISTA IMG XR PROCEDURES Phyllis l Result * (ABNORMAL) POCT glucose (01/21/2024 8:36 PM CDT) Glucose, POC 232(H) 70 - 199 mg/dL Blood 01/21/2024 8:36 PM CDT 01/21/2024 8:36 PM CDT Result [facility] Stan Treviño MD LAB POCT ORDERABLES - DEVICE Final Result Performing Organization Address [facility] Co de Phone Number [facility] Department [place] [address] * (ABNORMAL) POCT glucose (01/21/2024 5:08 PM CDT) Glucose, POC 259(H) 70 - 199 mg/dL Blood 01/21/2024 5:08 PM CDT 01/21/2024 5:08 PM CDT Stan Treviño MD LAB POCT ORDERABLES - DEVICE Final Result [facility] Department [place] [address] * (ABNORMAL) POCT glucose (01/21/2024 11:42 AM CDT) Glucose, POC 228(H) 70 - 199 mg/dL Blood 01/21/2024 11:4 2 AM CDT 01/21/2024 11:42 AM CDT Stan Treviño MD LAB POCT ORDERABLES - DEVICE Final Result Performing Organization Address [facility] Co de Phone Number [facility] Department [place] [address] * ECG 12 lead (01/21/2024 11:01 AM CDT) Pathologist [facility] Ventricular Rate EKG/Min [address] [facility] Atrial Rate [address] [facility] [place]-Interval (MSEC) [address] [facility] QRS-Interval (MSEC) [address] [facility] QT-Interval (MSEC) [address] [facility] QTc 495 ms [facility] P Ross [address] [facility] R Ross -51 degrees [facility] T Ross [address] [facility] Diagnosis Normal sinus rhythm with sinus arrhythmia Incomplete right bundle branch block Left anterior fascicular block Prolonged QT Possible Right ventricular hypertrophy When compared with ECG of 20-JAN-2024 17:04, (unconfirmed) ST no longer depressed in Lateral leads Confirmed by JEAN PAUL BUSTOS M.D ([id number]) on 01/22/2024 9:02:17 AM [facility] 01/21/2024 11:0 1 AM CDT 01/22/2024 9:02 AM CDT Cinthia Stokes PA ECG ORDERABLES Final Result Performing Organization Address [facility] Co de Phone Number [facility] * POCT glucose (01/21/2024 8:56 AM CDT) Glucose, POC 192 70 - 199 mg/dL Blood 01/21/2024 8:56 AM CDT 01/21/2024 8:56 AM CDT Stan Treviño MD LAB POCT ORDERABLES - DEVICE Final Result Performing Organization Address [facility]/ZIP Co de Phone Number [facility] Department [place] [address] * Critical Care (01/21/2024 6:00 AM CDT) Narrative Judson Rodríguez MD - 01/21/2024 6:00 AM CDT Cinthia Stokes PA ? 01/21/2024 11:03 AM Critical Care Performed by: Cinthia Stokes PA Authorized by: Cinthia Stokes PA ?? CRITICAL CARE: ??Team: ??83 CTICU ??Shift: ??AM ??Level of Billing: ??Critical Care ??My time spent with this patient was 60 minutes: Critical Provider Statement: I have seen and examined the patient on this day of service. I have reviewed and confirmed the history, physical exam, laboratory and radiologic data as documented in the signed ICU note. I have reviewed and discussed my treatment plan with the ICU team and other medical/employment consultant staff, making frequent assessments and decisions regarding this patient's complex medical care. Critical Care time was exclusive of time spent performing separately billed procedures, treating other patients, and teaching. This time was in addition to and separate from critical care provided by other practitioners in my group on this day of service. Critical Care was necessary to treat or prevent imminent or life-threatening deterioration of the following conditions: ? I spent time reviewing and interpreting data from bedside monitors, laboratory results, and imaging, I spent time discussing the management of this critically ill patient with consultants and the medical staff and I spent time documenting in the medical record us Cinthia BATISTA IN CLINIC/BEDSIDE [facility] Final Result * POCT glucose (01/21/2024 3:56 AM CDT) [facility] Signature Glucose, POC 178 70 - 199 mg/dL Blood 01/21/2024 3:56 AM CDT 01/21/2024 3:56 AM CDT us Stan Treviño MD LAB POCT ORDERABLES - DEVICE Final Result [facility] Department [place] [address] * eGFR (01/21/2024 12:55 AM CDT) eGFR 60 >=60 mL/min/1. 73 m2 Comment: Interpretive Data [...] interpretive data was last reviewed 2021. Blood 01/21/2024 12:5 5 AM CDT 01/21/2024 1:14 AM CDT us Cinthia BATISTA LAB BLOOD ORDERABLES F inal Result [facility] Department [place] [address] * Phosphorus (01/21/2024 12:55 AM CDT) Phosphorus, pl 4.1 2.3 - 4.5 mg/dL Comment:Repeated and Verifie d Blood 01/21/2024 12:5 5 AM CDT 01/21/2024 1:14 AM CDT Cinthia BATISTA LAB BLOOD ORDERABLES F inal Result Performing Organization Address City/[facility] Co de Phone Number [facility] [place] [address] * Magnesium (01/21/2024 12:55 AM CDT) Pathologist [facility] Magnesium 2.3 1.4 - 2.5 mg/dL Blood 01/21/2024 12:5 5 AM CDT 01/21/2024 1:14 AM CDT Cinthia BTAISTA LAB BLOOD ORDERABLES F inal Result Performing Organization Address [facility] de Phone Number [facility] [place] [address] * (ABNORMAL) Basic metabolic panel (01/21/2024 12:55 AM CDT) Pathologist [facility] Sodium 146(H) 135 - 145 mmol/L Potassium, pl 4.8 3.3 - 4.9 mmol/L [facility] Chloride 114(H) 97 - 110 mmol/L [facility] CO2 21(L) 22 - 32 mmol/L [facility] Anion gap 11 2 - 15 mmol/L [facility] BUN 28(H) 6 - 25 mg/dL [facility] Creatinine 0.99 0.60 - 1.10 mg/dL [facility] Glucose 193 70 - 199 mg/dL [facility] Comment: Interpretive Data Fasting glucose >/= [...] interpretive data was last revised 2022. Calcium 8.8 8.5 - 10.3 mg/dL [facility] Blood 01/21/2024 12:5 5 AM CDT 01/21/2024 1:14 AM CDT Cinthia BATISTA LAB BLOOD ORDERABLES F inal Result Performing Organization Address City/[facility]/ZIP Co de Phone Number [facility] Department [place] [address] * (ABNORMAL) CBC without differential (01/21/2024 12:55 AM CDT) [facility] WBC 8.9 3.8 - 9.9 K/cumm Hgb 8.6(L) 11.9 - 15.5 g/dL [facility] Hct 26.4(L) 35.6 - 45.5 % [facility] Plt 132(L) 150 - 400 K/cumm [facility] MPV 11.0 9.1 - 12.3 fL [facility] RBC 2.88(L) 3.90 - 5.20 M/cumm [facility] MCV 91.7 81.3 - 96.4 fL [facility] MCH 29.9 27.1 - 33.3 pg [facility] MCHC 32.6 32.3 - 35.7 g/dL [facility] RDW CV 13.3 11.1 - 14.9 % [facility] RDW SD 44.6 35.7 - 48.1 fL [facility] NRBC abs 0.00 0.00 - 0.01 K/cumm [facility] Blood 01/21/2024 12:5 5 AM CDT 01/21/2024 1:14 AM CDT Cinthia BATISTA LAB BLOOD ORDERABLES F inal Result Performing Organization Address City/[facility]/ZIP Co de Phone Number [facility] Department [place] [address] * XR Chest 1 View - in PM (01/20/2024 9:40 PM CDT) Anatomical Region Laterality Modality Body, Chest N/A Computed Radiogr aphy 01/21/2024 8:08 AM CDT Impressions 01/21/2024 8:08 AM CDT First exam 01/20/2024 at 17:47. ??The current study is compared with the prior radiograph dated ??01/20/2024 at 14:59. The tip of the endotracheal tube is obscured by overlying median sternotomy place however appears to be just above the balaji. ??A gastric tube courses below the diaphragm and loops in the stomach and the tip projects over the proximal stomach. ??Right internal jugular approach pulmonary artery catheter projects over the main pulmonary artery. ??Mediastinal and pericardial left thoracostomy tubes are noted. ??Left atrial appendage clip. Stable small lung volumes with mild bibasilar atelectasis. ??No pleural effusion or pneumothorax. ??Heart size is stable. Second exam ??01/20/2024 at 21:34. ??Endotracheal tube tip is 2.4 cm above the balaji. ??Otherwise, no significant interval change. Electronically signed by: Cesar Sutton MD, PHD Narrative 01/21/2024 8:08 AM CDT Examination: 2 portable chests Chest one view portable Chest one view portable Procedure Note Cesar Sutton MD PhD - 01/21/2024 Examination: 2 portable chests Chest one view portable Chest one view portable IMPRESSION: First exam 01/20/2024 at 17:47. The current study is compared with the prior radiograph dated 01/20/2024 at 14:59. The tip of the endotracheal tube is obscured by overlying median sternotomy place however appears to be just above the balaji. A gastric tube courses below the diaphragm and loops in the stomach and the tip projects over the proximal stomach. Right internal jugular approach pulmonary artery catheter projects over the main pulmonary artery. Mediastinal and pericardial left thoracostomy tubes are noted. Left atrial appendage clip. Stable small lung volumes with mild bibasilar atelectasis. No pleural effusion or pneumothorax. Heart size is stable. Second exam 01/20/2024 at 21:34. Endotracheal tube tip is 2.4 cm above the balaji. Otherwise, no significant interval change. Electronically signed by: Cesar Sutton MD, PHD us Cinthia Stokes PA IMG XR PROCEDURES Phyllis l Result * POCT glucose (01/20/2024 8:35 PM CDT) [facility] Signature Glucose, POC 121 70 - 199 mg/dL Blood 01/20/2024 8:35 PM CDT 01/20/2024 8:35 PM CDT us Stan Treviño MD LAB POCT ORDERABLES - DEVICE Final Result [facility] Department [place] [address] * XR Chest 1 View (01/20/2024 7:10 PM CDT) Anatomical Region Laterality Modality Body, Chest N/A Computed Radiogr aphy 01/21/2024 8:08 AM CDT Impressions 01/21/2024 8:08 AM CDT First exam 01/20/2024 at 17:47. ??The current study is compared with the prior radiograph dated ??01/20/2024 at 14:59. The tip of the endotracheal tube is obscured by overlying median sternotomy place however appears to be just above the balaji. ??A gastric tube courses below the diaphragm and loops in the stomach and the tip projects over the proximal stomach. ??Right internal jugular approach pulmonary artery catheter projects over the main pulmonary artery. ??Mediastinal and pericardial left thoracostomy tubes are noted. ??Left atrial appendage clip. Stable small lung volumes with mild bibasilar atelectasis. ??No pleural effusion or pneumothorax. ??Heart size is stable. Second exam ??01/20/2024 at 21:34. ??Endotracheal tube tip is 2.4 cm above the balaji. ??Otherwise, no significant interval change. Electronically signed by: Cesar Sutton MD, PHD Narrative 01/21/2024 8:08 AM CDT Examination: 2 portable chests Chest one view portable Chest one view portable Procedure Note Cesar Sutton MD PhD - 01/21/2024 Examination: 2 portable chests Chest one view portable Chest one view portable IMPRESSION: First exam 01/20/2024 at 17:47. The current study is compared with the prior radiograph dated 01/20/2024 at 14:59. The tip of the endotracheal tube is obscured by overlying median sternotomy place however appears to be just above the balaji. A gastric tube courses below the diaphragm and loops in the stomach and the tip projects over the proximal stomach. Right internal jugular approach pulmonary artery catheter projects over the main pulmonary artery. Mediastinal and pericardial left thoracostomy tubes are noted. Left atrial appendage clip. Stable small lung volumes with mild bibasilar atelectasis. No pleural effusion or pneumothorax. Heart size is stable. Second exam 01/20/2024 at 21:34. Endotracheal tube tip is 2.4 cm above the balaji. Otherwise, no significant interval change. Electronically signed by: Cesar Sutton MD, PHD us Stan Treviño MD IMG XR PROCEDURES Final Resul t * XR Abdomen AP 1 View - KUB (01/20/2024 7:10 PM CDT) Anatomical Region Laterality Modality Body, Abdomen N/A Computed Radiogr aphy 01/21/2024 10:4 2 AM CDT Impressions 01/21/2024 12:57 PM CDT A single view of the abdomen is submitted for evaluation. An enteric tube loops within the stomach with the tip in the fundus and side port in the body of the stomach. ??The bowel gas is within normal limits. ??There is a temperature-sensing Bright catheter. ?? A right internal jugular approach pulmonary arterial catheter is partially imaged within the tip in the main pulmonary artery. Postsurgical changes of median sternotomy with sternal plating. There are pericardial, mediastinal, and left sided chest tubes, better characterized on same-day chest radiograph. ??There is a left atrial appendage clip. ??Epicardial pacing wires overlie the mediastinum. Dictated by: Jamie Machuca M.D. The radiology attending physician has personally reviewed this study, and had reviewed and/or edited this written report and agrees with it. Electronically signed by: Elma Brady M.D. Narrative 01/21/2024 12:57 PM CDT EXAMINATION: Abdomen, one view. HISTORY: Check tube placement. COMPARISON: CT 12/12/2023 Procedure Note Elma Brady MD - 01/21/2024 EXAMINATION: Abdomen, one view. HISTORY: Check tube placement. COMPARISON: CT 12/12/2023 IMPRESSION: A single view of the abdomen is submitted for evaluation. An enteric tube loops within the stomach with the tip in the fundus and side port in the body of the stomach. The bowel gas is within normal limits. There is a temperature-sensing Bright catheter. A right internal jugular approach pulmonary arterial catheter is partially imaged within the tip in the main pulmonary artery. Postsurgical changes of median sternotomy with sternal plating. There are pericardial, mediastinal, and left sided chest tubes, better characterized on same-day chest radiograph. There is a left atrial appendage clip. Epicardial pacing wires overlie the mediastinum. Dictated by: Jamie Machuca M.D. The radiology attending physician has personally reviewed this study, and had reviewed and/or edited this written report and agrees with it. Electronically signed by: Elma Brady M.D. Cinthia BATISTA IMG XR PROCEDURES Phyllis l Result * Critical Care (01/20/2024 7:09 PM CDT) Narrative Judson Rodríguez MD - 01/20/2024 7:09 PM CDT Yisel Quintero NP ? 01/21/2024 ??5:12 AM Critical Care Performed by: Yisel Quintero NP Authorized by: Yisel Quintero NP ?? CRITICAL CARE: ??Team: ??83 CTICU ??Shift: ??PM ??Level of Billing: ??Critical Care ??My time spent with this patient was 85 minutes: Critical Provider Statement: I have seen and examined the patient on this day of service. I have reviewed and confirmed the history, physical exam, laboratory and radiologic data as documented in the signed ICU note. I have reviewed and discussed my treatment plan with the ICU team and other medical/employment consultant staff, making frequent assessments and decisions regarding this patient's complex medical care. Critical Care time was exclusive of time spent performing separately billed procedures, treating other patients, and teaching. This time was in addition to and separate from critical care provided by other practitioners in my group on this day of service. Critical Care was necessary to treat or prevent imminent or life-threatening deterioration of the following conditions: ? I spent time reviewing and interpreting data from bedside monitors, laboratory results, and imaging, I spent time discussing the management of this critically ill patient with consultants and the medical staff and I spent time documenting in the medical record us Yisel Quintero NP IN CLINIC/BEDSIDE ORDERABLES Final Result * POCT glucose (01/20/2024 6:06 PM CDT) [facility] Glucose, POC 106 70 - 199 mg/dL Blood 01/20/2024 6:06 PM CDT 01/20/2024 6:06 PM CDT us Stan Treviño MD LAB POCT ORDERABLES - DEVICE Final Result Performing Organization Address City/State/[facility] Co de Phone Number [facility] Department [place] [address] * ECG 12 lead (01/20/2024 5:04 PM CDT) [facility] Ventricular Rate EKG/Min 94 BPM [facility] Atrial Rate [address] [facility] [place]-Interval (MSEC) [address] [facility] QRS-Interval (MSEC) 122 ms [facility] QT-Interval (MSEC) 412 ms [facility] QTc [address] [facility] P Ross [address] [facility] R Ross -61 degrees [facility] T Ross 38 degrees [facility] Diagnosis Normal sinus rhythm Right bundle branch block Left anterior fascicular block Bifascicular block Abnormal ECG Confirmed by Radha Brennan MD ([id number]) on 01/22/2024 12:20:57 AM [facility] 01/20/2024 5:04 PM CDT 01/22/2024 12:20 AM CDT Stan Treviño MD ECG ORDERABLES Final Result [facility] * Triglycerides (01/20/2024 4:52 PM CDT) Triglycerides 88 <=149 mg/dL Comment: Interpretive Data Ages < or [...] Data was last revised on 2017. Blood 01/20/2024 4:52 PM CDT 01/20/2024 5:20 PM CDT Stan Treviño MD LAB BLOOD ORDERABLES Final Re sult Performing Organization Address City/[facility]/ZIP Co de Phone Number [facility] Department [place] [address] * eGFR (01/20/2024 4:52 PM CDT) Pathologist [facility] eGFR 64 >=60 mL/min/1. 73 m2 Comment: Interpretive Data [...] interpretive data was last reviewed 2021. Blood 01/20/2024 4:52 PM CDT 01/20/2024 5:20 PM CDT us Cinthia BATISTA LAB BLOOD ORDERABLES F inal Result [facility] Department [place] [address] * aPTT (01/20/2024 4:52 PM CDT) Pathologist [facility] aPTT 29 28 - 38 sec Comment: Interpretive Data Heparin therapeutic range: 66.0 - 100.0 seconds. Range based on correlation with therapeutic heparin activity range of 0.3 - 0.7 Units/mL. Current interpretive data was last revised on 2023. Blood 01/20/2024 4:52 PM CDT 01/20/2024 5:25 PM CDT Stan Treviño MD LAB BLOOD ORDERABLES Final Re sult Performing Organization Address [facility] Co de Phone Number [facility] [place] [address] * (ABNORMAL) Protime-INR (01/20/2024 4:52 PM CDT) [facility] PT 13.3(H) 9.7 - 13.0 sec INR 1.23(H) 0.90 - 1.20 [facility] Comment: Interpretive data Oral anticoagulant therapeutic ranges: Venous thromboembolism prophylaxis or treatment: 2.0-3.0 CARDIOLOGY Standard range: 2.0-3.0 High-intensity range: 2.5-3.5 Refer to indication-specific guidelines for appropriate target ranges for prosthetic heart valve replacement. Current interpretive data was last revised on 2019. Blood 01/20/2024 4:52 PM CDT 01/20/2024 5:25 PM CDT Stan Treviño MD LAB BLOOD ORDERABLES Final Re sult Performing Organization Address [facility] Co de Phone Number [facility] Department [place] [address] * (ABNORMAL) CBC without differential (01/20/2024 4:52 PM CDT) Pathologist [facility] WBC 8.7 3.8 - 9.9 K/cumm Hgb 8.7(L) 11.9 - 15.5 g/dL [facility] Hct 26.5(L) 35.6 - 45.5 % [facility] Plt 143(L) 150 - 400 K/cumm [facility] MPV 11.1 9.1 - 12.3 fL [facility] RBC 2.98(L) 3.90 - 5.20 M/cumm [facility] MCV 88.9 81.3 - 96.4 fL [facility] MCH 29.2 27.1 - 33.3 pg [facility] MCHC 32.8 32.3 - 35.7 g/dL [facility] RDW CV 13.2 11.1 - 14.9 % [facility] RDW SD 42.7 35.7 - 48.1 fL [facility] NRBC abs 0.00 0.00 - 0.01 K/cumm [facility] Blood 01/20/2024 4:52 PM CDT 01/20/2024 5:14 PM CDT Stan Treviño MD LAB BLOOD ORDERABLES Final Re sult [facility] Department [place] [address] * (ABNORMAL) Magnesium (01/20/2024 4:52 PM CDT) Pathologist [facility] Magnesium 2.7(H) 1.4 - 2.5 mg/dL Blood 01/20/2024 4:52 PM CDT 01/20/2024 5:20 PM CDT us Cinthia BATISTA LAB BLOOD ORDERABLES F inal Result [facility] [place] [address] * (ABNORMAL) Basic metabolic panel (01/20/2024 4:52 PM CDT) Pathologist [facility] Sodium 147(H) 135 - 145 mmol/L Potassium, pl 3.8 3.3 - 4.9 mmol/L [facility] Chloride 114(H) 97 - 110 mmol/L [facility] CO2 23 22 - 32 mmol/L [facility] Anion gap 10 2 - 15 mmol/L [facility] BUN 28(H) 6 - 25 mg/dL [facility] Creatinine 0.94 0.60 - 1.10 mg/dL [facility] Glucose 107 70 - 199 mg/dL [facility] Comment: Interpretive Data Fasting glucose >/= [...] 2022. Calcium 9.2 8.5 - 10.3 mg/dL [facility] Blood 01/20/2024 4:52 PM CDT 01/20/2024 5:20 PM CDT Cinthia BATISTA LAB BLOOD ORDERABLES F inal Result Performing Organization Address City/[facility] Co de Phone Number [facility] Department [place] [address] * (ABNORMAL) Phosphorus (01/20/2024 4:52 PM CDT) [facility] Phosphorus, pl 1.8(L) 2.3 - 4.5 mg/dL Blood 01/20/2024 4:52 PM CDT 01/20/2024 5:20 PM CDT Cinthia BATISTA LAB BLOOD ORDERABLES F inal Result Performing Organization Address City/[facility]/ZIP Co de Phone Number [facility] Department [place] [address] * Critical Care (01/20/2024 4:47 PM CDT) Narrative Judson Rodríguez MD - 01/20/2024 4:47 PM CDT Cinthia Stokes PA ? 01/20/2024 ??6:24 PM Critical Care Performed by: Cinthia Stokes PA Authorized by: Cinthia Stokes PA ?? CRITICAL CARE: ??Team: ??83 CTICU ??Shift: ??AM ??Level of Billing: ??Critical Care ??My time spent with this patient was 60 minutes: Critical Provider Statement: I have seen and examined the patient on this day of service. I have reviewed and confirmed the history, physical exam, laboratory and radiologic data as documented in the signed ICU note. I have reviewed and discussed my treatment plan with the ICU team and other medical/employment consultant staff, making frequent assessments and decisions regarding this patient's complex medical care. Critical Care time was exclusive of time spent performing separately billed procedures, treating other patients, and teaching. This time was in addition to and separate from critical care provided by other practitioners in my group on this day of service. Critical Care was necessary to treat or prevent imminent or life-threatening deterioration of the following conditions: ? I spent time reviewing and interpreting data from bedside monitors, laboratory results, and imaging, I spent time discussing the management of this critically ill patient with consultants and the medical staff and I spent time documenting in the medical record Cinthia BATISTA IN CLINIC/BEDSIDE [facility] Final Result * (ABNORMAL) POC Blood Gas and Chemistries, Arterial - (01/20/2024 4:43 PM CDT) [facility] pH, Art POC 7.40 7.35 - 7.45 pCO2, Art POC 33(L) 35 - 45 mmHg [facility] pO2, Art POC 116(H) 83 - 108 mmHg [facility] Na, POC 145 135 - 145 mmol/L [facility] K POC 3.6 3.3 - 4.9 mmol/L [facility] Comment: Interpretive Data Not all point of care methods assess for hemolysis. Confirm with instrument and retest K+ if not consistent with clinical signs and symptoms. Current Interpretive Data was last revised on 2023. Cl, POC 118(H) 97 - 110 mmol/L [facility] Ionized Ca, POC 5.08 4.50 - 5.10 mg/dL [facility] Glucose, POC 104 70 - 199 mg/dL [facility] Lactate, POC 1.0 0.7 - 2.2 mmol/L [facility] SO2 (kristy) arterial 100(H) 90 - 95 % [facility] Base excess, POC -3.8 mmol/L [facility] HCO3, Art POC 20 20 - 30 mmol/L [facility] Hct, POC 27.0(L) 36.3 - 45.3 % [facility] Total Hb, POC 9.1(L) 11.9 - 15.5 g/dL [facility] Blood 01/20/2024 4:43 PM CDT 01/20/2024 4:43 PM CDT Stan Treviño MD LAB POCT ORDERABLES - DEVICE Final Result [facility] Department [place] [address] * XR Chest 1 View (01/20/2024 3:15 PM CDT) Anatomical Region Laterality Modality Body, Chest N/A Computed Radiogr aphy 01/20/2024 3:30 PM CDT Impressions 01/20/2024 3:49 PM CDT The chest is open. ??Right-sided pulmonary artery catheter is in place with tip terminating in the proximal right main pulmonary artery. Left atrial appendage clip in place. ??An endotracheal tube is approximately ??1 centimeters above the balaji. Left-sided thoracostomy tube and right pericardial drain are in place. No retained surgical needle or other surgical instrument is seen. There are small lung volumes, as a consequence there is both vascular crowding and atelectasis. ??No definite pleural effusion. ??Small right-sided lateral pneumothorax. ??No left-sided pneumothorax. Cardiomediastinal silhouette is stable. Dictated by: Kaushik Valentin M.D. The radiology attending physician has personally reviewed this study, and had reviewed and/or edited this written report and agrees with it. Electronically signed by: Erica Mustafa M.D. Narrative 01/20/2024 3:49 PM CDT EXAMINATION: 1 exposure of the patient's chest and one exposure of the reported missing item are submitted for evaluation. Procedure Note Erica Mustafa MD - 01/20/2024 EXAMINATION: 1 exposure of the patient's chest and one exposure of the reported missing item are submitted for evaluation. IMPRESSION: The chest is open. Right-sided pulmonary artery catheter is in place with tip terminating in the proximal right main pulmonary artery. Left atrial appendage clip in place. An endotracheal tube is approximately 1 centimeters above the balaji. Left-sided thoracostomy tube and right pericardial drain are in place. No retained surgical needle or other surgical instrument is seen. There are small lung volumes, as a consequence there is both vascular crowding and atelectasis. No definite pleural effusion. Small right-sided lateral pneumothorax. No left-sided pneumothorax. Cardiomediastinal silhouette is stable. Dictated by: Kaushik Valentin M.D. The radiology attending physician has personally reviewed this study, and had reviewed and/or edited this written report and agrees with it. Electronically signed by: Erica Mustafa M.D. us Stan Treviño MD IMG XR PROCEDURES Final Resul t * (ABNORMAL) POCT hemoglobin, hematocrit and platelet count (01/20/2024 2:56 PM CDT) Hgb, POC 8.1(L) 11.9 - 15.5 g/dL Hematocrit POC 24.5(L) 35.6 - 45.5 % [facility] Platelet POC 122(L) 150 - 400 K/cumm [facility] Blood 01/20/2024 2:56 PM CDT 01/20/2024 2:56 PM CDT us Stan Treviño MD LAB POCT ORDERABLES - DEVICE Final Result Performing Organization Address City/[facility]/ZIP Co de Phone Number [facility] Department [place] [address] * (ABNORMAL) POC Blood Gas and Chemistries, Arterial - (01/20/2024 2:17 PM CDT) pH, Art POC 7.36 7.35 - 7.45 pCO2, Art POC 37 35 - 45 mmHg [facility] [place][NOTE 3] pO2, Art POC 282(H) 83 - 108 mmHg [facility] [place] Na, POC 145 135 - 145 mmol/L [facility] K POC 4.0 3.3 - 4.9 mmol/L [facility] Comment: Interpretive Data Not all point of care methods assess for hemolysis. Confirm with instrument and retest K+ if not consistent with clinical signs and symptoms. Current Interpretive Data was last revised on 2023. Cl, POC 117(H) 97 - 110 mmol/L [facility] Ionized Ca, POC 5.75(H) 4.50 - 5.10 mg/dL [facility] Glucose, POC 164 70 - 199 mg/dL [facility] Lactate, POC 1.4 0.7 - 2.2 mmol/L [facility] SO2 (kristy) arterial 100(H) 90 - 95 % [facility] Base excess, POC -4.2 mmol/L [facility] HCO3, Art POC 22 20 - 30 mmol/L [facility] Hct, POC 18.0(L) 36.3 - 45.3 % [facility] Total Hb, POC 6.0(L) 11.9 - 15.5 g/dL [facility] Blood 01/20/2024 2:17 PM CDT 01/20/2024 2:17 PM CDT Stan Treviño MD LAB POCT ORDERABLES - DEVICE Final Result [facility] [place]NOTE [facility] Department [place] [address] * (ABNORMAL) POCT prothrombin time (01/20/2024 2:16 PM CDT) PT, POC 29.6(H) 11.7 - 16.6 sec INR, POC 2.3(H) 0.9 - 1.3 [facility] Blood 01/20/2024 2:16 PM CDT 01/20/2024 2:16 PM CDT Stan Treviño MD LAB POCT ORDERABLES - DEVICE Final Result Performing Organization Address [facility] de Phone Number [facility] Department [place] [address] * (ABNORMAL) POCT Partial thromboplastin time (PTT) (01/20/2024 2:15 PM CDT) Pathologist [facility] APTT, POC 22.2(L) 32.5 - 46.1 sec Blood 01/20/2024 2:15 PM CDT 01/20/2024 2:15 PM CDT Stan Treviño MD LAB POCT ORDERABLES - DEVICE Final Result Performing Organization Address [facility] de Phone Number [facility] Department [place] [address] * (ABNORMAL) POCT hemoglobin, hematocrit and platelet count (01/20/2024 2:13 PM CDT) Hgb, POC 8.0(L) 11.9 - 15.5 g/dL Hematocrit POC 24.1(L) 35.6 - 45.5 % [facility] Platelet POC 102(L) 150 - 400 K/cumm [facility] Blood 01/20/2024 2:13 PM CDT 01/20/2024 2:13 PM CDT Stan Treviño MD LAB POCT ORDERABLES - DEVICE Final Result Performing Organization Address [facility]/ZIP Co de Phone Number [facility] [place] [address] * POCT heparin/ACT CPB (01/20/2024 2:11 PM CDT) Heparin POC 0.0 units/mL ACT, CPB 112 112 - 174 sec [facility] Blood 01/20/2024 2:11 PM CDT 01/20/2024 2:11 PM CDT Stan Treviño MD LAB POCT ORDERABLES - DEVICE Final Result Performing Organization Address City/[facility]/ZIP Co de Phone Number [facility] [place] [address] * (ABNORMAL) POCT heparin/ACT CPB (01/20/2024 1:45 PM CDT) [facility] Heparin POC >4.7 units/mL ACT, CPB 603(H) 112 - 174 sec [facility] Blood 01/20/2024 1:45 PM CDT 01/22/2024 8:07 AM CDT Stan Treviño MD LAB POCT ORDERABLES - DEVICE Final Result Performing Organization Address City/[facility]/ZIP Co de Phone Number [facility] [place] [address] * (ABNORMAL) POC Blood Gas and Chemistries, Arterial - (01/20/2024 1:44 PM CDT) [facility] pH, Art POC 7.41 7.35 - 7.45 pCO2, Art POC 34(L) 35 - 45 mmHg [facility] pO2, Art POC 249(H) 83 - 108 mmHg [facility] Na, POC 144 135 - 145 mmol/L [facility] K POC 4.6 3.3 - 4.9 mmol/L [facility] Comment: Interpretive Data Not all point of care methods assess for hemolysis. Confirm with instrument and retest K+ if not consistent with clinical signs and symptoms. Current Interpretive Data was last revised on 2023. Cl, POC 116(H) 97 - 110 mmol/L [facility] Ionized Ca, POC 4.58 4.50 - 5.10 mg/dL [facility] [place] Glucose, POC 169 70 - 199 mg/dL [facility] [place]] Lactate, POC 1.4 0.7 - 2.2 mmol/L [facility] SO2 (kristy) arterial 99(H) 90 - 95 % [facility] Base excess, POC -2.7 mmol/L [facility] HCO3, Art POC 22 20 - 30 mmol/L [facility] Hct, POC 24.0(L) 36.3 - 45.3 % [facility] Total Hb, POC 7.9(L) 11.9 - 15.5 g/dL [facility] Blood 01/20/2024 1:44 PM CDT 01/20/2024 1:44 PM CDT Stan Treviño MD LAB POCT ORDERABLES - DEVICE Final Result [facility] Department [place] [address] * (ABNORMAL) POCT heparin/ACT CPB (01/20/2024 1:16 PM CDT) [facility] Heparin POC >4.7 units/mL ACT, CPB 603(H) 112 - 174 sec [facility] Blood 01/20/2024 1:16 PM CDT 01/22/2024 8:07 AM CDT Stan Treviño MD LAB POCT ORDERABLES - DEVICE Final Result [facility] Department [place] [address] * (ABNORMAL) POC Blood Gas and Chemistries, Arterial - (01/20/2024 1:15 PM CDT) pH, Art POC 7.40 7.35 - 7.45 pCO2, Art POC 31(L) 35 - 45 mmHg [facility] pO2, Art POC 207(H) 83 - 108 mmHg [facility] Na, POC 143 135 - 145 mmol/L [facility] K POC 4.7 3.3 - 4.9 mmol/L [facility] Comment: Interpretive Data Not all point of care methods assess for hemolysis. Confirm with instrument and retest K+ if not consistent with clinical signs and symptoms. Current Interpretive Data was last revised on 2023. Cl, POC 116(H) 97 - 110 mmol/L [facility] Ionized Ca, POC 4.68 4.50 - 5.10 mg/dL [facility] Glucose, POC 184 70 - 199 mg/dL [facility] Lactate, POC 1.3 0.7 - 2.2 mmol/L [facility] SO2 (kristy) arterial 99(H) 90 - 95 % [facility] Base excess, POC -4.9 mmol/L [facility] HCO3, Art POC 19(L) 20 - 30 mmol/L [facility] Hct, POC 25.0(L) 36.3 - 45.3 % [facility] Total Hb, POC 8.4(L) 11.9 - 15.5 g/dL [facility] Blood 01/20/2024 1:15 PM CDT 01/20/2024 1:15 PM CDT Stan Treviño MD LAB POCT ORDERABLES - DEVICE Final Result [facility] Department [place] [address] * (ABNORMAL) POC Blood Gas and Chemistries, Arterial - (01/20/2024 12:50 PM CDT) pH, Art POC 7.29(L) 7.35 - 7.45 pCO2, Art POC 43 35 - 45 mmHg [facility] pO2, Art POC 232(H) 83 - 108 mmHg [facility] Na, POC 143 135 - 145 mmol/L [facility] K POC 4.5 3.3 - 4.9 mmol/L [facility] Comment: Interpretive Data Not all point of care methods assess for hemolysis. Confirm with instrument and retest K+ if not consistent with clinical signs and symptoms. Current Interpretive Data was last revised on 2023. Cl, POC 115(H) 97 - 110 mmol/L [facility] Ionized Ca, POC 4.80 4.50 - 5.10 mg/dL [facility] [place] Glucose, POC 183 70 - 199 mg/dL [facility] [place]] Lactate, POC 1.2 0.7 - 2.2 mmol/L [facility] SO2 (kristy) arterial 99(H) 90 - 95 % [facility] [place] Base excess, POC -5.5 mmol/L [facility] HCO3, Art POC 21 20 - 30 mmol/L [facility] Hct, POC 26.0(L) 36.3 - 45.3 % [facility] Total Hb, POC 8.5(L) 11.9 - 15.5 g/dL [facility] Blood 01/20/2024 12:5 0 PM CDT 01/20/2024 12:50 PM CDT Stan Treviño MD LAB POCT ORDERABLES - DEVICE Final Result Performing Organization Address City/[facility]/ZIP Co de Phone Number [facility] Department [place] [address] * (ABNORMAL) POCT heparin/ACT CPB (01/20/2024 12:48 PM CDT) [facility] Heparin POC 2.7 units/mL ACT, CPB 718(H) 112 - 174 sec [facility] Blood 01/20/2024 12:4 8 PM CDT 01/20/2024 12:48 PM CDT Stan Treviño MD LAB POCT ORDERABLES - DEVICE Final Result [facility] Department [place] [address] * (ABNORMAL) POCT heparin/ACT CPB (01/20/2024 12:16 PM CDT) Heparin POC 4.1 units/mL ACT, CPB 559(H) 112 - 174 sec [facility] Blood 01/20/2024 12:1 6 PM CDT 01/20/2024 12:16 PM CDT Stan Treviño MD LAB POCT ORDERABLES - DEVICE Final Result [facility] [place] [address] * (ABNORMAL) POC Blood Gas and Chemistries, Arterial - (01/20/2024 12:16 PM CDT) pH, Art POC 7.34(L) 7.35 - 7.45 pCO2, Art POC 40 35 - 45 mmHg [facility] pO2, Art POC 252(H) 83 - 108 mmHg [facility] Na, POC 143 135 - 145 mmol/L [facility] K POC 4.4 3.3 - 4.9 mmol/L [facility] Comment: Interpretive Data Not all point of care methods assess for hemolysis. Confirm with instrument and retest K+ if not consistent with clinical signs and symptoms. Current Interpretive Data was last revised on 2023. Cl, POC 114(H) 97 - 110 mmol/L [facility] Ionized Ca, POC 4.52 4.50 - 5.10 mg/dL [facility] Glucose, POC 199 70 - 199 mg/dL [facility] Lactate, POC 0.9 0.7 - 2.2 mmol/L [facility] SO2 (kristy) arterial 100(H) 90 - 95 % [facility] Base excess, POC -3.9 mmol/L [facility] HCO3, Art POC 22 20 - 30 mmol/L [facility] Hct, POC 26.0(L) 36.3 - 45.3 % [facility] Total Hb, POC 8.5(L) 11.9 - 15.5 g/dL [facility] Blood 01/20/2024 12:1 6 PM CDT 01/20/2024 12:16 PM CDT us Stan Treviño MD LAB POCT ORDERABLES - DEVICE Final Result Performing Organization Address [facility] Co de Phone Number [facility] [place] [address] * (ABNORMAL) POCT heparin/ACT CPB (01/20/2024 11:47 AM CDT) Heparin POC >4.7 units/mL ACT, CPB 733(H) 112 - 174 sec [facility] Blood 01/20/2024 11:4 7 AM CDT 01/22/2024 8:07 AM CDT Stan Treviño MD LAB POCT ORDERABLES - DEVICE Final Result Performing Organization Address [facility]/[place] [address] * (ABNORMAL) POC Blood Gas and Chemistries, Arterial - (01/20/2024 11:46 AM CDT) pH, Art POC 7.28(L) 7.35 - 7.45 pCO2, Art POC 35 35 - 45 mmHg [facility] pO2, Art POC 310(H) 83 - 108 mmHg [facility] Na, POC 142 135 - 145 mmol/L [facility] K POC 4.4 3.3 - 4.9 mmol/L [facility] Comment: Interpretive Data Not all point of care methods assess for hemolysis. Confirm with instrument and retest K+ if not consistent with clinical signs and symptoms. Current Interpretive Data was last revised on 2023. Cl, POC 111(H) 97 - 110 mmol/L [facility] Ionized Ca, POC 4.06(L) 4.50 - 5.10 mg/dL [facility] Glucose, POC 183 70 - 199 mg/dL [facility] Lactate, POC 0.8 0.7 - 2.2 mmol/L [facility] SO2 (kristy) arterial 100(H) 90 - 95 % [facility] Base excess, POC -9.5 mmol/L [facility] HCO3, Art POC 18(L) 20 - 30 mmol/L [facility] Hct, POC 26.0(L) 36.3 - 45.3 % [facility] Total Hb, POC 8.8(L) 11.9 - 15.5 g/dL [facility] Blood 01/20/2024 11:4 6 AM CDT 01/20/2024 11:46 AM CDT Stan Treviño MD LAB POCT ORDERABLES - DEVICE Final Result Performing Organization Address [facility]/[place] de Phone Number [facility] Department [place] [address] * (ABNORMAL) POCT heparin/ACT CPB (01/20/2024 11:14 AM CDT) Heparin POC 4.1 units/mL ACT, CPB 538(H) 112 - 174 sec [facility] Blood 01/20/2024 11:1 4 AM CDT 01/20/2024 11:14 AM CDT Stan Treviño MD LAB POCT ORDERABLES - DEVICE Final Result Performing Organization Address [facility]/[place] de Phone Number [facility] [place] [address] * POCT heparin dose response, CPB (01/20/2024 9:33 AM CDT) Baseline ACT POC 141 112 - 174 sec Heparin dose response slope POC 83 60 - 195 [facility] Projected Heparin Concentration POC 4.1 units/mL [facility] Blood 01/20/2024 9:33 AM CDT 01/20/2024 9:33 AM CDT us Stan Treviño MD LAB POCT ORDERABLES - DEVICE Final Result Performing Organization Address City/[facility]/ZIP Co de Phone Number [facility] [place] [address] * (ABNORMAL) POC Blood Gas and Chemistries, Arterial - (01/20/2024 9:33 AM CDT) pH, Art POC 7.39 7.35 - 7.45 pCO2, Art POC 32(L) 35 - 45 mmHg [facility] pO2, Art POC 342(H) 83 - 108 mmHg [facility] Na, POC 141 135 - 145 mmol/L [facility] K POC 3.7 3.3 - 4.9 mmol/L [facility] Comment: Interpretive Data Not all point of care methods assess for hemolysis. Confirm with instrument and retest K+ if not consistent with clinical signs and symptoms. Current Interpretive Data was last revised on 2023. Cl, POC 113(H) 97 - 110 mmol/L [facility] Ionized Ca, POC 4.83 4.50 - 5.10 mg/dL [facility] Glucose, POC 146 70 - 199 mg/dL [facility] Lactate, POC 1.0 0.7 - 2.2 mmol/L [facility] SO2 (kristy) arterial 100(H) 90 - 95 % [facility] Base excess, POC -4.8 mmol/L [facility] HCO3, Art POC 21 20 - 30 mmol/L [facility] Hct, POC 33.0(L) 36.3 - 45.3 % [facility] Total Hb, POC 11.0(L) 11.9 - 15.5 g/dL [facility] Blood 01/20/2024 9:33 AM CDT 01/20/2024 9:33 AM CDT us Stan Treviño MD LAB POCT ORDERABLES - DEVICE Final Result JORGE MANSFIELD [facility] Department [place] [address] * JULIANO Add-On For OR (01/20/2024 8:24 AM CDT) Narrative [facility] PROSOLV_CARDIOREPORT_CONS SCIMAGE - 01/20/2024 8:24 AM CDT Procedure Auto Finalized by Rule: BW CV JULIANO DURING CASE OR Please see the Anesthesiologist's Procedure Note for the results. us Diogo Smith MD CV ECHO PROCEDURES Final Result Performing Organization Address City/[facility]/ZIP Co de Phone Number [facility] PROSOLV_CARDIOREPORT_CONS SCIMAGE * POCT glucose (01/20/2024 6:55 AM CDT) Glucose, POC 147 70 - 199 mg/dL Blood 01/20/2024 6:55 AM CDT 01/20/2024 6:55 AM CDT us Stan Treviño MD LAB POCT ORDERABLES - DEVICE Final Result Performing Organization Address City/[facility] Co de Phone Number [facility] Department [place] [address] * Prepare RBC: 4 Units (01/20/2024 6:24 AM CDT) Product code [id number] [facility] Unit Number [id number] 6-E [facility] Product Blood Type APOS [facility] Dispense Status RETURNED [facility] Product code [id number] [facility] Unit Number [id number] 2-5 [facility] Product Blood Type APOS [facility] Dispense Status RETURNED [facility] Product code [id number] Unit Number [id number] 1-X [facility] Product Blood Type APOS [facility] Dispense Status RETURNED [facility] Product code [id number] [facility] Unit Number [id number] 7-H [facility] Product Blood Type APOS [facility] Dispense Status RETURNED [facility] Blood 01/20/2024 6:24 AM CDT 01/20/2024 6:23 AM CDT Anna MANSFIELD - 01/20/2024 4:29 PM CDT Specify Procedure:->CABG Are special requirements needed? 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, multiple vessel Type 2 diabetes mellitus (HCC) 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, with long-term current use of insulin, unspecified laterality ([facility]) S/P CABG x 3 Postsurgical aortocoronary bypass status ABLA (acute blood loss anemia) Leucocytosis Leukocytosis, unspecified Obesity Obesity, unspecified Thrombocytopenia ([facility]) Unspecified thrombocytopenia DM2 (diabetes mellitus, type 2) ([facility]) AF (paroxysmal atrial fibrillation) ([facility]/HCC) (HCC) Atrial fibrillation documented in this encounter Admitting Diagnoses Diagnosis Coronary artery disease Coronary atherosclerosis of unspecified type of vessel, king salmon or graft Coronary artery disease due to calcified coronary lesion CAD, multiple vessel documented in this encounter Administered Medications Inactive Administered Medications - up to 3 most recent administrations Medication Order MAR Action Action Date Dose Rate Site acetaminophen (TYLENOL) tablet 1,000 mg 1,000 mg, feeding tube, Every 6 hours scheduled, First dose on 01/20/24 at 1815 Given 01/28/2024 12:43 PM CDT 1,000 mg Given 01/28/2024 4:14 AM CDT 1,000 mg Given 01/27/2024 5:50 PM CDT 1,000 mg amiodarone (NEXTERONE) 150 mg/100 mL (1.5 mg/mL) in dextrose (premix) 150 mg 150 mg, intravenous, at 600 mL/hr, Administer over 10 Minutes, Once, On Sat01/25/24 at 0100, For 1 dose, Use filter 0.22 micron or less New Bag 01/25/2024 12:48 AM CDT 150 mg 600 mL/hr amiodarone (PACERONE) tablet 200 mg 200 mg, oral, 2 times daily, First dose on Sat01/31/24 at 0900, For 3 days amiodarone (PACERONE) tablet 200 mg 200 mg, oral, Daily, First dose on Sat02/03/24 at 0900, Can stop the amiodarone after dose on 02/05 amiodarone (PACERONE) tablet 400 mg 400 mg, oral, 3 times daily, First dose on Sat01/25/24 at 1600, For 3 days Given 01/27/2024 8:44 PM CDT 400 mg Given 01/27/2024 4:06 PM CDT 400 mg Given 01/27/2024 9:16 AM CDT 400 mg amiodarone (PACERONE) tablet 400 mg 400 mg, oral, 2 times daily, First dose on Sat01/28/24 at 0900, For 3 days Given 01/28/2024 8:37 AM CDT 400 mg amiodarone (PACERONE) tablet 400 mg 400 mg, oral, 2 times daily, First dose (after last modification) on Sat01/28/24 at 2100, For 3 days amiodarone in dextrose (NEXTERONE) 360 mg/200 mL (1.8 mg/mL) infusion (premix) 1 mg/min (33.3333 mL/hr, rounded to 33.3 mL/hr), 1.8 mg/mL, intravenous, Continuous, Starting on Sat01/25/24 at 0115, Until Sat01/25/24 at 1030, Use filter 0.22 micron or less, STAT Rate/Dose Verify 01/25/2024 6:35 AM CDT 1 mg/min 33.3 mL/hr New Bag 01/25/2024 3:14 AM CDT 1 mg/min 33.3 mL/hr aspirin enteric coated tablet 81 mg 81 mg, oral, Daily, First dose on Sat01/20/24 at 1900, Do not crush, chew, cut, dissolve, open or otherwise manipulate tablet/capsule. Given 01/28/2024 8:37 AM CDT 81 mg Given 01/27/2024 9:16 AM CDT 81 mg Given 01/26/2024 8:28 AM CDT 81 mg atorvastatin (LIPITOR) tablet 40 mg 40 mg, feeding tube, Daily, First dose on Sat01/21/24 at 0900 Given 01/28/2024 8:37 AM CDT 40 mg Given 01/27/2024 9:16 AM CDT 40 mg Given 01/26/2024 8:28 AM CDT 40 mg brimonidine (ALPHAGAN) 0.2 % ophthalmic solution 1 drop 1 drop, left eye, 2 times daily, First dose on Sat01/27/24 at 0900 Given 01/28/2024 8:40 AM CDT 1 drop Given 01/27/2024 8:45 PM CDT 1 drop Given 01/27/2024 10:42 AM CDT 1 drop ceFAZolin (ANCEF) 2,000 mg/20 mL in sterile water (premix) 2,000 mg 2,000 mg, intravenous, at 400 mL/hr, Administer over 3 Minutes, Every 8 hours, First dose on Sat01/20/24 at 2330, For 3 doses, Start 8 hours after last erin-operative dose., Indications: Prophylaxis, SurgicalIndications:Prophylaxis, Surgical Given 01/21/2024 8:23 AM CDT 2,000 mg 400 mL/hr Given 01/20/2024 11:36 PM CDT 2,000 mg 400 mL/hr chlorhexidine (PERIDEX) 0.12 % solution 15 mL 15 mL, mouth/throat, 3 times daily, First dose on Sat01/20/24 at 1730, For 15 doses, Patient enrolled in CTS Oral Decontamination QI Project. Administer chlorhexidine 0.12% via mouth/throat swab route AFTER oral care IF patient is intubated. , Indications: CTS Oral Decontamination QI ProjectIndications:CTS Oral Decontamination QI Project Given 01/25/2024 9:27 AM CDT 15 mL Given 01/24/2024 7:49 PM CDT 15 mL Given 01/24/2024 8:51 AM CDT 15 mL chlorhexidine (PERIDEX) 0.12 % solution 15 mL 15 mL, swish & spit, Once, On Sat01/20/24 at 0700, For 1 dose, Pre-Op, Indications: CTS Oral Decontamination ProtocolIndications:CTS Oral Decontamination Protocol Given 01/20/2024 6:58 AM CDT 15 mL cholecalciferol (VITAMIN D-3) capsule 1,000 Units 1,000 Units, oral, Daily, First dose on Sat01/27/24 at 0900, Each capsule contains 1,000 units (25 mcg) of cholecalciferol. Given 01/28/2024 8:37 AM CDT 1,000 Units Given 01/27/2024 9:16 AM CDT 1,000 Units clopidogreL (PLAVIX) tablet 75 mg 75 mg, oral, Daily, First dose on Sat01/21/24 at 1015 Given 01/28/2024 8:38 AM CDT 75 mg Given 01/27/2024 9:17 AM CDT 75 mg Given 01/26/2024 8:28 AM CDT 75 mg dextrose (D10W) 10% bolus 250 mL 250 mL, intravenous, at 1,000 mL/hr, Administer over 15 Minutes, Every 15 min PRN, blood glucose less than 70 mg/dL and UNABLE to swallow/take PO glucose/juice., Starting on Sat01/21/24 at 1329, After treatment for hypoglycemia, recheck BG followed by treatment every 15 minutes until the BG is greater than 100 mg/dL. Then check BG 1 hour post treatment. If BG is less than 100 mg/dL, repeat Q15 minute BG checks and treatment. Call MD for each episode of hypoglycemia., Indications: hypoglycemic disorderIndications:hypogly cemic disorder dextrose gel in packet 15 g 15 g, oral, Every 15 min PRN, low blood sugar, blood glucose less than 70 mg/dL, Starting on Sat01/21/24 at 1329, If patient is alert and able to eat/drink, give 15 gm glucose or one juice (4 fluid ounces) NOT ORANGE JUICE. After treatment for hypoglycemia, recheck BG followed by treatment every 15 minutes until the BG is greater than 100 mg/dL. Then check BG 1 hour post-treatment. If BG is less than 100 mg/dL, repeat Q15 minute BG checks and treatment. Call MD for each episode of hypoglycemia., Indications: hypoglycemic disorderIndications:hypogly cemic disorder Given 01/23/2024 5:16 PM CDT 15 g DOBUTamine in dextrose 5% (DOBUTREX) 1,000 mg/250 mL (4,000 mcg/mL) infusion (premix) 0-20 mcg/kg/min ? 90.6 kg (0-27.18 mL/hr), 4,000 mcg/mL, intravenous, Titrated, Starting on Sat01/20/24 at 1415, Until Sat01/20/24 at 1644, Indications: Cardiac Decompensation, Initial rate: 2.5 mcg/kg/min, Titrate: Up/Down, Titrate by: 2.5 mcg/kg/min, Every: 5 minutes, Goal: CI, CI Goal: 2.2-4 L/min/m2, RoutineIndications:Cardiac Decompensation Rate/Dose Verify 01/20/2024 5:00 PM CDT 2.5 mcg/kg/min 3.4 mL/hr Rate/Dose Change 01/20/2024 2:28 PM CDT 2.5 mcg/kg/min 3.3 98 mL/hr New Bag 01/20/2024 1:34 PM CDT 5 mcg/kg/min 6.795 mL/hr DOBUTamine in dextrose 5% (DOBUTREX) 1,000 mg/250 mL (4,000 mcg/mL) infusion (premix) 2.5 mcg/kg/min ? 90.6 kg (3.3975 mL/hr, rounded to 3.4 mL/hr), 4,000 mcg/mL, intravenous, Continuous, Starting on Sat01/20/24 at 2100, Until Sat01/21/24 at 1329, Initial rate: Do not titrate, Routine Rate/Dose Verify 01/21/2024 10:00 AM CDT 2.5 mcg/kg/min 3.4 mL/hr Rate/Dose Verify 01/21/2024 9:00 AM CDT 2.5 mcg/kg/min 3.4 mL/hr Rate/Dose Verify 01/21/2024 8:00 AM CDT 2.5 mcg/kg/min 3.4 mL/hr docusate (COLACE) 10 mg/mL oral liquid 100 mg 100 mg, feeding tube, 2 times daily, First dose on Sat01/20/24 at 2100, Hold for diarrhea., Indications: constipationIndications:constipation Given 01/20/2024 8:21 PM CDT 100 mg docusate sodium (COLACE) capsule 100 mg 100 mg, oral, 2 times daily, First dose on Sat01/20/24 at 2100, Hold for diarrhea., Indications: constipationIndications:constipation Given 01/28/2024 8:38 AM CDT 100 mg Given 01/27/2024 9:16 AM CDT 100 mg Given 01/26/2024 8:28 AM CDT 100 mg famotidine (PEPCID) 20 mg/50 mL in sodium chloride 0.9% (premix) 20 mg 20 mg, intravenous, at 150 mL/hr, Administer over 20 Minutes, Every 24 hours, First dose (after last modification) on Sat01/20/24 at 2100, Indications: Prevention of Stress UlcerIndications:Prevention of Stress Ulcer New Bag 01/20/2024 8:21 PM CDT 20 mg 150 mL/hr furosemide (LASIX) tablet 20 mg 20 mg, oral, Daily, First dose on Sat01/23/24 at 0900 Given 01/28/2024 8:37 AM CDT 20 mg Given 01/27/2024 9:16 AM CDT 20 mg Given 01/26/2024 8:28 AM CDT 20 mg glucagon injection 1 mg 1 mg, intramuscular, Every 30 min PRN, low blood sugar, blood glucose less than 70 mg/dL AND no IV access AND unable to take PO glucose/juice., Starting on Sat01/21/24 at 1329, After Glucagon is administered, position patient on side if possible to avoid aspiration. Obtain IV access. Follow glucagon treatment with glucose treatment or IV dextrose. After treatment for hypoglycemia, recheck BG followed by treatment every 15 minutes until the BG is greater than 100 mg/dL. Then check BG 1 hour post treatment. If BG is less than 100 mg/dL, repeat Q15 minute BG checks and treatment. Call MD for each episode of hypoglycemia. Reconstitute 1 mg vial with 1 mL SWFI. Use immediately following reconstitution. guaiFENesin ER (MUCINEX) extended release tablet 600 mg 600 mg, oral, 2 times daily, First dose on Sat01/22/24 at 2100, Do not crush, chew, cut, dissolve, open or otherwise manipulate tablet/capsule. Given 01/28/2024 8:37 AM CDT 600 mg Given 01/27/2024 8:44 PM CDT 600 mg Given 01/27/2024 9:16 AM CDT 600 mg HYDROmorphone (DILAUDID) injection 0.2 mg 0.2 mg, intravenous, Administer over 2 Minutes, Every 2 hours PRN, breakthrough pain, Starting on Sat01/20/24 at 1735 Given 01/22/2024 9:49 AM CDT 0.2 mg Given 01/21/2024 3:23 PM CDT 0.2 mg Given 01/21/2024 5:42 AM CDT 0.2 mg insulin glargine (LANTUS, SEMGLEE) 100 unit/mL injection 20 Units 20 Units, subcutaneous, Nightly, First dose (after last modification) on Sat01/27/24 at 2100, Do not hold if NPO. Do not mix with other insulins, Indications: Diabetes MellitusIndications:Diabetes Mellitus Given 01/27/2024 8:45 PM CDT 20 Units Left Upper Arm insulin glargine (LANTUS, SEMGLEE) 100 unit/mL injection 24 Units 24 Units, subcutaneous, Nightly, First dose (after last modification) on Sat01/26/24 at 2100, Do not hold if NPO. Do not mix with other insulins, Indications: Diabetes MellitusIndications:Diabetes Mellitus Given 01/26/2024 9:08 PM CDT 24 Units Left Lower Abdomen insulin glargine (LANTUS, SEMGLEE) 100 unit/mL injection 32 Units 32 Units, subcutaneous, Nightly, First dose (after last modification) on Sat01/21/24 at 2100, Do not hold if NPO. Do not mix with other insulins, Indications: Diabetes MellitusIndications:Diabetes Mellitus Given 01/25/2024 9:24 PM CDT 32 Units Left Lower Abdomen Given 01/24/2024 7:49 PM CDT 32 Units Le ft Lower Abdomen Given 01/23/2024 8:44 PM CDT 32 Units Le ft Upper Arm insulin lispro (HumaLOG, ADMELOG) 100 unit/mL injection 0-10 Units 0-10 Units, subcutaneous, Every 4 hours scheduled, First dose on Sat01/21/24 at 0930, Blood glucose mg/dL: 149 or less: No insulin 150-199: add 2 unit 200-249: add 4 units 250-299: add 6 units 300-349: add 8 units and notify physician for adjustment of insulin orders. 350-399: add 10 units and notify physician for adjustment of insulin orders. Over 400: Notify physician for adjustment of insulin orders. Do NOT hold for NPO Status, Indications: Diabetes MellitusIndications:Diabetes Mellitus Given 01/21/2024 11:30 AM CDT 4 Units Left Lower Abdomen insulin lispro (HumaLOG, ADMELOG) 100 unit/mL injection 0-10 Units 0-10 Units, subcutaneous, 3 times daily with meals, First dose on Sat01/21/24 at 1815, Blood glucose mg/dL: 149 or less: No insulin 150-199: add 2 unit 200-249: add 4 units 250-299: add 6 units 300-349: add 8 units and notify physician for adjustment of insulin orders. 350-399: add 10 units and notify physician for adjustment of insulin orders. Over 400: Notify physician for adjustment of insulin orders. Do NOT hold for NPO Status, Indications: Diabetes MellitusIndications:Diabetes Mellitus Given 01/25/2024 12:36 PM CDT 4 Units Left Lower Abdomen Given 01/23/2024 1:21 PM CDT 4 Units Le ft Lower Abdomen Given 01/23/2024 10:04 AM CDT 2 Units L eft Lower Abdomen insulin lispro (HumaLOG, ADMELOG) 100 unit/mL injection 0-4 Units 0-4 Units, subcutaneous, Nightly, First dose on Sat01/27/24 at 2100, Blood glucose mg/dL: 199 or less: No insulin 200-249: add 1 unit 250-299: add 2 units 300-349: add 3 units and notify physician for adjustment of insulin orders. 350-399: add 4 units and notify physician for adjustment of insulin orders. Over 400: Notify physician for adjustment of insulin orders. Do NOT hold for NPO Status, Indications: Diabetes MellitusIndications:Diabetes Mellitus Given 01/27/2024 8:45 PM CDT 1 Units Right Lower Abdomen insulin lispro (HumaLOG, ADMELOG) 100 unit/mL injection 0-5 Units 0-5 Units, subcutaneous, 3 times daily with meals, First dose on Sat01/21/24 at 1800, Blood glucose mg/dL: 149 or less: No insulin 150-199: add 1 unit 200-249: add 2 units 250-299: add 3 units 300-349: add 4 units and notify physician for adjustment of insulin orders. 350-399: add 5 units and notify physician for adjustment of insulin orders. Over 400: Notify physician for adjustment of insulin orders. Do NOT hold for NPO Status, Indications: Diabetes MellitusIndications:Diabetes Mellitus Given 01/21/2024 5:22 PM CDT 3 Units Right Upper Arm insulin lispro (HumaLOG, ADMELOG) 100 unit/mL injection 0-5 Units 0-5 Units, subcutaneous, Nightly, First dose on Sat01/21/24 at 2100, Blood glucose mg/dL: 149 or less: No insulin 150-199: add 1 unit 200-249: add 2 units 250-299: add 3 units 300-349: add 4 units and notify physician for adjustment of insulin orders. 350-399: add 5 units and notify physician for adjustment of insulin orders. Over 400: Notify physician for adjustment of insulin orders. Do NOT hold for NPO Status, Indications: Diabetes MellitusIndications:Diabetes Mellitus Given 01/26/2024 9:46 PM CDT 2 Units Left Upper Arm Given 01/24/2024 7:49 PM CDT 1 Units Le ft Upper Abdomen Given 01/23/2024 8:44 PM CDT 3 Units Le ft Upper Arm insulin lispro (HumaLOG, ADMELOG) 100 unit/mL injection 0-5 Units 0-5 Units, subcutaneous, 3 times daily with meals, First dose on Sat01/27/24 at 1200, Blood glucose mg/dL: 149 or less: No insulin 150-199: add 1 unit 200-249: add 2 units 250-299: add 3 units 300-349: add 4 units and notify physician for adjustment of insulin orders. 350-399: add 5 units and notify physician for adjustment of insulin orders. Over 400: Notify physician for adjustment of insulin orders. Do NOT hold for NPO Status, Indications: Diabetes MellitusIndications:Diabetes Mellitus Given 01/28/2024 12:43 PM CDT 1 Units Left Upper Arm Given 01/27/2024 5:50 PM CDT 1 Units Le ft Upper Arm insulin lispro (HumaLOG, ADMELOG) 100 unit/mL injection 1-5 Units 1-5 Units, subcutaneous, Every 4 hours scheduled, First dose on Sat01/20/24 at 2000, Blood Sugar Mid Dose - Surgical/Post-Op ICU 139 or less No insulin 140 - 175 1 unit 176 - 200 2 unit 201 - 250 3 units 251 - 299 5 units Greater than 299 Call MD for hyperglycemia management instructions Do NOT hold for NPO status., Indications: Diabetes MellitusIndications:Diabetes Mellitus Given 01/21/2024 8:27 AM CDT 2 Units Left Lower Abdomen Given 01/21/2024 3:58 AM CDT 2 Units Le ft Upper Arm insulin lispro (HumaLOG, ADMELOG) 100 unit/mL injection 10 Units 10 Units, subcutaneous, 3 times daily with meals, First dose (after last modification) on Sat01/21/24 at 1800, If BG greater than or equal to 100 mg/dL, give dose with meals when tray arrives in the room. If BG less than 100 mg/dL or history of poor intake, give after meals. If patient eating less than 50% of meal, call MD for holding or reducing meal insulin dose. Hold prandial insulin if NPO, unable to eat, or if BG less than 70 mg/dL., Indications: Diabetes MellitusIndications:Diabetes Mellitus Given 01/23/2024 10:03 AM CDT 10 Units Left Lower Abdomen Given 01/22/2024 12:31 PM CDT 10 Units L eft Lower Abdomen Given 01/22/2024 9:44 AM CDT 10 Units Le ft Lower Abdomen insulin lispro (HumaLOG, ADMELOG) 100 unit/mL injection 10 Units 10 Units, subcutaneous, 3 times daily after meals, First dose (after last modification) on Sat01/23/24 at 1230, If BG greater than or equal to 100 mg/dL, give dose with meals when tray arrives in the room. If BG less than 100 mg/dL or history of poor intake, give after meals. If patient eating less than 50% of meal, call MD for holding or reducing meal insulin dose. Hold prandial insulin if NPO, unable to eat, or if BG less than 70 mg/dL., Indications: Diabetes MellitusIndications:Diabetes Mellitus Given 01/23/2024 1:21 PM CDT 10 Units Left Lower Abdomen insulin lispro (HumaLOG, ADMELOG) 100 unit/mL injection 6 Units 6 Units, subcutaneous, 3 times daily after meals, First dose (after last modification) on Sat01/27/24 at 1230, If BG greater than or equal to 100 mg/dL, give dose with meals when tray arrives in the room. If BG less than 100 mg/dL or history of poor intake, give after meals - but must be given within 30 min of starting to eat. If patient eating less than 50% of meal, call MD for holding or reducing meal insulin dose. Hold prandial insulin if NPO, unable to eat, or if BG less than 70 mg/dL., Indications: Diabetes MellitusIndications:Diabetes Mellitus Given 01/28/2024 12:43 PM CDT 6 Units Left Upper Arm Given 01/28/2024 8:36 AM CDT 6 Units Le ft Upper Arm Given 01/27/2024 5:50 PM CDT 6 Units Le ft Upper Arm insulin lispro (HumaLOG, ADMELOG) 100 unit/mL injection 8 Units 8 Units, subcutaneous, 3 times daily after meals, First dose (after last modification) on Sat01/24/24 at 0830, If BG greater than or equal to 100 mg/dL, give dose with meals when tray arrives in the room. If BG less than 100 mg/dL or history of poor intake, give after meals - but must be given within 30 min of starting to eat. If patient eating less than 50% of meal, call MD for holding or reducing meal insulin dose. Hold prandial insulin if NPO, unable to eat, or if BG less than 70 mg/dL., Indications: Diabetes MellitusIndications:Diabetes Mellitus Given 01/26/2024 5:45 PM CDT 8 Units Left Lower Abdomen Given 01/26/2024 12:54 PM CDT 8 Units L eft Upper Arm Given 01/26/2024 9:28 AM CDT 8 Units Le ft Upper Arm insulin regular in 0.9% sodium chloride (MYXREDLIN) 100 unit/100 mL (1 unit/mL) infusion (premix) 0-30 Units/hr (0-30 mL/hr), 1 units/mL, intravenous, Titrated, Starting on Sat01/20/24 at 1100, Until Sat01/20/24 at 1644, Indications: Hyperglycemia, NON-WEIGHT BASED DOSING Blood Glucose (BG) - BG DECREASED OR SAME as last value: Less than 70 mg/dL - Stop insulin infusion *(see below for drip reinitiation instructions). Follow hypoglycemia orders. Notify covering MD. 70 - 100 mg/dL - Stop infusion *(see below for drip reinitiation instructions). Resume BG Q 1 hour. 101 - 160 mg/dL - If BG decreased by greater than or equal to 40 mg/dL, decrease infusion by 50% or stop infusion if less than or equal to 2 units/hour *(see below for drip reinitiation instructions). Resume BG Q 1 hour. If BG decreased less than 40 mg/dL, continue same rate. 161 - 200 mg/dL- If BG decreased by greater than or equal to 60 mg/dL, decrease infusion by 50% or stop infusion if less than or equal to 2 units/hour *(see below for drip reinitiation instructions). Resume BG Q 1 hour. If BG decreased less than 60 mg/dL, continue same rate. 201 - 250 mg/dl - If BG decreased by greater than or equal to 60 mg/dL continue same rate. If decreased by less than 60 mg/dL, increase by 1 unit/hr. 251 - 300 mg/dL - Increase by 2 units/hour. 301 - 349 mg/dL - Increase by 2 units/hour. 350 - 400 mg/dL - Increase by 3 units/hr. Greater than 400 mg/dL - Notify covering MD Blood Glucose (BG) - Blood glucose INCREASED since last value: 70 - 100 mg/dL - Continue to hold infusion 101 - 160 mg/dL - Maintain at present rate or if drip has been off, follow reinitiation instructions* 161 - 200 mg/dL- Increase by or restart at 1 unit/hour or if drip has been off, follow reinitiation instructions* 201 - 250 mg/dL- Give 4 units insulin IVP then increase infusion by 2 units/hour or if drip has been off, follow reinitiation instructions* 251 - 300 mg/dL - Give 4 units insulin IVP then increase infusion by 2 units/hour or if drip has been off, follow reinitiation instructions* 301 - 349 mg/dL - Give 6 units insulin IVP then increase infusion by 3 units/hour or if drip has been off, follow reinitiation instructions* 350 - 400 mg/dL - Give 6 units insulin IVP then increase infusion by 3 units/hour or if drip has been off, follow reinitiation instructions* Greater than 400 mg/dL - Notify covering MD. *Drip Reinitiation Instructions: Check BG Q 1 hour; when BG greater than 100 mg/dL, restart infusion at 50% of the most recent rate. If the most recent rate less than 2 units/hr, contact covering provider for reinitiation or transition plan. Patients with renal failure (CrCl less than 40 mL/min, urine output less than 30 mL/hr, or receiving dialysis) limit infusion rate increases to be NO SOONER THAN EVERY 3 HOURS. Contains a phosphorous buffer. Do not infuse (Y-Site) this medication with calcium or calcium-containing products, including TPN and LR. When new IV tubing is used, completely prime the tubing. Once primed, waste an additional 20 ml of insulin infusion using the IV pump prior to connecting to patient., RoutineIndications:Hyperglyc emia Rate/Dose Verify 01/20/2024 5:00 PM CDT 5 Units/hr 5 mL/hr Rate/Dose Change 01/20/2024 1:16 PM CDT 5 Units/hr 5 mL/hr New Bag 01/20/2024 12:17 PM CDT 3 Units/hr 3 mL/hr Lactated Ringer's (LR) infusion 10 mL/hr, intravenous, Continuous, Starting on Sat01/20/24 at 1730 Rate/Dose Verify 01/21/2024 12:00 PM CDT 10 mL/hr 10 mL/hr Rate/Dose Verify 01/21/2024 11:00 AM CDT 10 mL/hr 10 mL/ hr Rate/Dose Verify 01/21/2024 10:00 AM CDT 10 mL/hr 10 mL/ hr Lactated Ringer's (LR) infusion 30 mL/hr, intravenous, Continuous, Starting on Sat01/20/24 at 0700, Pre-Op Rate/Dose Verify 01/20/2024 5:00 PM CDT 50 mL/hr 50 mL/hr New Bag 01/20/2024 6:59 AM CDT 30 mL/hr 30 mL/hr lactulose 0.67 gram/mL oral solution 20 g 20 g, oral, Once, On Dilma 01/23/24 at 2000, For 1 dose Given 01/23/2024 8:43 PM CDT 20 g latanoprost (XALATAN) 0.005 % ophthalmic solution 1 drop 1 drop, each eye, Nightly, First dose on Sat01/27/24 at 2100 Given 01/27/2024 8:45 PM CDT 1 drop levothyroxine (SYNTHROID) tablet 88 mcg 88 mcg, feeding tube, Daily (early AM), First dose on Sat01/21/24 at 0600, Administer on an empty stomach, preferably 30 minutes before breakfast. Take 4 hours apart from antacids, iron and calcium products. Separate from tube feeds, if applicable. Given 01/28/2024 4:14 AM CDT 88 mcg Given 01/27/2024 6:21 AM CDT 88 mcg Given 01/26/2024 4:34 AM CDT 88 mcg lidocaine (ASPERCREME) 4 % patch 2 patch 2 patch, transdermal, Administer over 12 Hours, Every 24 hours, First dose on Sat01/22/24 at 1000, Apply to affected area: back Medication Applied 01/23/2024 10:05 AM CDT 2 patches Back Medication Applied 01/22/2024 9:48 AM CDT 2 patches Back lidocaine (ASPERCREME) 4 % patch 2 patch 2 patch, transdermal, Administer over 12 Hours, Every 24 hours, First dose (after last modification) on Sat01/24/24 at 0900, Apply to affected area: back metoprolol tartrate (LOPRESSOR) immediate release tablet 12.5 mg 12.5 mg, oral, 2 times daily, First dose (after last modification) on Sat01/24/24 at 2100, Hold parameter: SBP <90, HR <60 Given 01/27/2024 8:44 PM CDT 12.5 m g Given 01/27/2024 9:17 AM CDT 12.5 mg Given 01/26/2024 9:09 PM CDT 12.5 mg metoprolol tartrate immediate release capsule 6.25 mg 6.25 mg, oral, Once as needed, perioperative beta blockade, Starting on Sat01/20/24 at 0623, For 1 dose, Pre-Op, Please verify if patient took their home dose of betablocker the evening before or morning of surgery. Please give PRN dose if patient did not take their home dose of betablocker the evening before or morning of surgery. Hold for SBP less than 100 or HR less than 60. Administer with a sip of water. Given 01/20/2024 6:58 AM CDT 6.25 mg metoprolol tartrate immediate release capsule 6.25 mg 6.25 mg, oral, 2 times daily, First dose on Sat01/22/24 at 1030, Hold parameter: SBP <90, HR <60 Given 01/24/2024 8:51 AM CDT 6.25 mg Given 01/23/2024 8:44 PM CDT 6.25 mg Given 01/23/2024 10:04 AM CDT 6.25 mg metoprolol tartrate immediate release capsule 6.25 mg 6.25 mg, oral, Once, On Sat01/24/24 at 0945, For 1 dose Given 01/24/2024 9:55 AM CDT 6.25 mg metoprolol XL (TOPROL-XL) extended release tablet 12.5 mg 12.5 mg, oral, Daily, First dose on Sat01/28/24 at 0900, Hold for SBP < 100 or HR < 60 Tablets that are scored may be split, but do not crush, chew, dissolve, open or otherwise manipulate tablet/capsule. Given 01/28/2024 8:38 AM CDT 12.5 mg ondansetron (ZOFRAN) injection 4 mg 4 mg, intravenous, Administer over 2 Minutes, Every 6 hours PRN, nausea, vomiting, Starting on Sat01/20/24 at 1644, Administer no sooner than 6 hours after last dose. Given 01/22/2024 3:19 PM CDT 4 mg Given 01/21/2024 3:23 PM CDT 4 mg Given 01/21/2024 3:54 AM CDT 4 mg oxyCODONE (ROXICODONE) tablet 5 mg 5 mg, feeding tube, Every 4 hours PRN, 1st line for pain, Starting on Sat01/20/24 at 1735, Indications: PainIndications:Pain Given 01/22/2024 6:06 AM CDT 5 mg Given 01/22/2024 12:47 AM CDT 5 mg Given 01/21/2024 1:38 PM CDT 5 mg oxyCODONE (ROXICODONE) tablet 5 mg 5 mg, oral, Every 4 hours PRN, 1st line for pain, Starting on Sat01/22/24 at 0727, Indications: PainIndications:Pain Given 01/27/2024 9:01 PM CDT 5 mg Given 01/26/2024 9:09 PM CDT 5 mg Given 01/26/2024 8:27 AM CDT 5 mg polyethylene glycol (MIRALAX) packet 17 g 17 g, oral, Daily, First dose on Sat01/20/24 at 1730, Hold for diarrhea, Indications: constipationIndications:constipation Given 01/26/2024 8:28 AM CDT 17 g Given 01/23/2024 10:05 AM CDT 17 g Given 01/22/2024 9:40 AM CDT 17 g potassium chloride 20 mEq/50 mL in sterile water (premix) 20 mEq 20 mEq, intravenous, at 25 mL/hr, Administer over 2 Hours, Every 1 hour PRN, K less than 4.5 mmol/L, Starting on Sat01/20/24 at 1644, Central line only, Indications: hypokalemiaIndications:hypokalem ia Rate/Dose Verify 01/20/2024 9:00 PM CDT 25 mL/hr New Bag 01/20/2024 7:06 PM CDT 20 mEq 25 mL/hr potassium chloride ER (KLOR-CON) extended release tablet 40 mEq 40 mEq, oral, Once, On Sat01/26/24 at 0000, For 1 dose, Tablets should not be crushed, chewed, dissolved, or otherwise manipulated. Capsules may be opened and sprinkled on a spoonful of applesauce or pudding, but the contents of the capsule should not be crushed or chewed. Given 01/26/2024 2:43 AM CDT 40 mEq potassium phosphates 20 mmol in sodium chloride 0.9% 500 mL IVPB 20 mmol, intravenous, at 84.4 mL/hr, Administer over 6 Hours, Once, On Sat01/20/24 at 1930, For 1 dose, For PERIPHERAL line administration Each 1 mmol of phosphorus ordered contains ~1.5 mEq of potassium. Rate/Dose Verify 01/20/2024 9:00 PM CDT 84.4 mL/hr New Bag 01/20/2024 8:21 PM CDT 20 mmol 84.4 mL/hr prochlorperazine (COMPAZINE) 10 mg/2 mL (5 mg/mL) injection - ADS Override Pull Starting on Sat01/21/24 at 0804, For 1 dose, Created by cabinet override prochlorperazine (COMPAZINE) injection 5 mg 5 mg, intravenous, Administer over 2 Minutes, Every 6 hours PRN, nausea, vomiting, 2nd line, Starting on Sat01/21/24 at 0807 Given 01/21/2024 8:25 AM CDT 5 mg propofol (DIPRIVAN) 10 mg/mL infusion 0-50 mcg/kg/min ? 90.6 kg (0-27.18 mL/hr), 10 mg/mL, intravenous, Titrated, Starting on Sat01/20/24 at 1730, Until Sat01/21/24 at 0509, Indications: Sedation in Intubated Patients, Titration instructions: Titrate, Initial dose: 30 mcg/kg/min, Titrate: Up/Down, Titrate by: 10 mcg/kg/min, Every: 10 minutes, Goal: RASS, RASS Goal: 0, -1, -2, Discontinue when patient extubated. Room temperature only, RoutineIndications:Sedati on in Intubated Patients Rate/Dose Verify 01/20/2024 10:00 PM CDT 40 mcg/kg/min 21.7 mL/hr Rate/Dose Verify 01/20/2024 9:00 PM CDT 40 mcg/kg/min 21.7 mL/hr Rate/Dose Verify 01/20/2024 8:00 PM CDT 40 mcg/kg/min 21.7 mL/hr senna (SENOKOT) tablet 1 tablet 1 tablet, oral, 2 times daily, First dose on Sat01/20/24 at 2100, Hold for diarrhea., Indications: constipationIndications:constipation Given 01/28/2024 8:38 AM CDT 1 table t Given 01/27/2024 9:18 AM CDT 1 tablet Given 01/26/2024 8:28 AM CDT 1 tablet senna 1.76 mg/mL syrup 8.8 mg 8.8 mg, feeding tube, 2 times daily, First dose on Sat01/20/24 at 2100, Hold for diarrhea., Indications: constipationIndications:const ipation Given 01/20/2024 8:21 PM CDT 8.8 mg sodium chloride 0.9% 0.9% infusion - ADS Override Pull Starting on Sat01/20/24 at 1647, For 1 dose, Created by cabinet override sodium chloride 0.9% solution 3-12 mL/hr, intra-catheter, Continuous, Starting on Sat01/20/24 at 1730, Amount needed for invasive pressure monitoring with 300 mg Hg to maintain patency. Rate/Dose Verify 01/21/2024 12:00 PM CDT 9 mL/hr 9 mL/hr Rate/Dose Verify 01/21/2024 11:00 AM CDT 9 mL/hr 9 mL/h r Rate/Dose Verify 01/21/2024 10:00 AM CDT 9 mL/hr 9 mL/h r sodium chloride 0.9% solution 3-12 mL/hr, intra-catheter, Continuous, Starting on Sat01/20/24 at 1730, Amount needed for invasive pressure monitoring with 300 mg Hg to maintain patency. Rate/Dose Verify 01/21/2024 12:00 PM CDT 3 mL/hr 3 mL/hr Rate/Dose Verify 01/21/2024 11:00 AM CDT 3 mL/hr 3 mL/h r Rate/Dose Verify 01/21/2024 10:00 AM CDT 3 mL/hr 3 mL/h r sodium phosphate - potassium phosphate (K-PHOS NEUTRAL) tablet 250 mg 250 mg, oral, 3 times daily with meals, First dose on Dilma 01/23/24 at 0800, For 3 days, Each tablet contains elemental phosphorus 250 mg (8 mmol), potassium 45 mg (1.1 mEq), and sodium 298 mg (13 mEq). Given 01/25/2024 6:06 PM CDT 250 mg Given 01/25/2024 12:36 PM CDT 250 mg Given 01/25/2024 9:27 AM CDT 250 mg timolol (TIMOPTIC) 0.5 % ophthalmic solution 1 drop 1 drop, left eye, 2 times daily, First dose on Sat01/27/24 at 0900 Given 01/28/2024 8:40 AM CDT 1 drop Given 01/27/2024 8:45 PM CDT 1 drop Given 01/27/2024 10:42 AM CDT 1 drop documented in this encounter Discontinued Medications Medication Sig Discontinue Reason Start Date End Da te empagliflozin (Jardiance) 10 mg tabletIndications:Type 2 diabetes mellitus (HCC) Take 1 tablet (10 mg total) by mouth daily 12/03/2022 01/28/2024 insulin lispro (HumaLOG) 100 unit/mL pen for injection Inject 10 Units under the skin 3 (three) times a day with meals (plus blood glucose mg/dL 150-199: 1 unit, 200-249: 2 units, 250-299: 3 units, 300-349: 4 units, 350 or greater: 5 units. Notify provider for blood glucose greater than 299 mg/dL. Max daily dose 40units) Refer to After Visit Summary for Sliding Scale Insulin Instructions. 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, with long-term current use of insulin, unspecified laterality (HCC) Inject 50 Units under the skin daily before breakfast Stop Taking at Discharge 12/03/2022 01/28/2024 insulin aspart (NovoLOG) 100 unit/mL (3 mL) pen for injection Inject 12 Units under the skin 3 (three) times a day Stop Taking at Discharge 08/20/2023 01/28/2024 nitroglycerin (NITROSTAT) 0.4 mg SL tabletIndications:Congest lisa heart failure, unspecified HF chronicity, unspecified heart failure type (HCC) Place 1 tablet (0.4 mg total) under the tongue every 5 (five) minutes as needed for chest pain Stop Taking at Discharge 11/19/2023 01/28/2024 mupirocin (BACTROBAN) 2 % ointment Apply to each nostril 2 (two) times a day For 5 days prior to procedure Stop Taking at Discharge 12/19/2023 01/28/2024 chlorhexidine (HIBICLENS) 4 % external liquidIndications:Skin Disinfection Apply topically daily as needed for wound care For 5 days prior to procedure Stop Taking at Discharge 12/19/2023 01/28/2024 chlorhexidine (PERIDEX) 0.12 % solution Apply 15 mL to the mouth or throat 2 (two) times a day Stop Taking at Discharge 12/19/2023 01/28/2024 glucose 4 gram chewable tabletIndications:diabete s/ low blood sugar Take 1 tablet (4 g total) by mouth as needed for low blood sugar Stop Taking at Discharge 01/28/2024 documented as of this encounter Active and Recently Administered Medications Times are shown in CDT. Scheduled Medication Order 01/26/2024 01/27/2024 01/28/2024 acetaminophen (TYLENOL) tablet 1,000 mg 1,000 mg, feeding tube, Every 6 hours scheduled, First dose on Sat01/20/24 at 1815 0434 (Given - Provider: Carmita Eden RN)1208 (Not Given - Provider: Marion Aaron - Reason: Patient/family refused)1745 (Given - Provider: Mega Wharton RN) 0223 (Not Given - Provider: Carmita Eden RN - Reason: Patient/family refused)0621 (Given - Provider: Carmita Eden RN)1135 (Given - Provider: Katharine Finney RN)1750 (Given - Provider: Katharine Finney RN)2321 (Not Given - Provider: Carmita Eden RN - Reason: Patient/family refused) 0414 (Given - Provider: Carmita Eden RN)1243 (Given - Provider: Katharine Finney RN) amiodarone (PACERONE) tablet 200 mg 200 mg, oral, 2 times daily, First dose on Sat01/31/24 at 0900, For 3 days amiodarone (PACERONE) tablet 200 mg 200 mg, oral, Daily, First dose on Sat02/03/24 at 0900, Can stop the amiodarone after dose on 02/05 amiodarone (PACERONE) tablet 400 mg (CANCELED) 400 mg, oral, 3 times daily, First dose on Sat01/25/24 at 1600, For 3 days 0827 (Given - Provider: Marion Aaron)1601 (Given - Provider: Mega Wharton RN)2108 (Given - Provider: Carmita Eden, CAPRI) 0916 (Given - Provider: Katharine Finney RN)1606 (Given - Provider: Katharine Finney RN)2044 (Given - Provider: Carmita Eden, CAPRI) 1006 (Not Given - Provider: Katharine Finney RN - Reason: See Provider Order) amiodarone (PACERONE) tablet 400 mg (CANCELED) 400 mg, oral, 2 times daily, First dose on Sat01/28/24 at 0900, For 3 days 0837 (Given - Provider: Katharine Finney RN) amiodarone (PACERONE) tablet 400 mg 400 mg, oral, 2 times daily, First dose (after last modification) on Sat01/28/24 at 2100, For 3 days aspirin enteric coated tablet 81 mg 81 mg, oral, Daily, First dose on Sat01/20/24 at 1900, Do not crush, chew, cut, dissolve, open or otherwise manipulate tablet/capsule. 0828 (Given - Provider: Marion Aaron) 0916 (Given - Provider: Katharine Finney RN) 0837 (Given - Provider: Katharine Finney RN) atorvastatin (LIPITOR) tablet 40 mg 40 mg, feeding tube, Daily, First dose on Sat01/21/24 at 0900 0828 (Given - Provider: Marion Aaron) 0916 (Given - Provider: Katharine Finney RN) 0837 (Given - Provider: Katharine Finney RN) brimonidine (ALPHAGAN) 0.2 % ophthalmic solution 1 drop(Linked Group 1) 1 drop, left eye, 2 times daily, First dose on Sat01/27/24 at 0900 1042 (Given - Provider: Katharine Finney RN)2045 (Given - Provider: Carmita Eden, CAPRI) 0840 (Given - Provider: Katharine Finney RN) cholecalciferol (VITAMIN D-3) capsule 1,000 Units 1,000 Units, oral, Daily, First dose on Sat01/27/24 at 0900, Each capsule contains 1,000 units (25 mcg) of cholecalciferol. 0916 (Given - Provider: Katharine Finney RN) 0837 (Given - Provider: Katharine Finney, CAPRI) clopidogreL (PLAVIX) tablet 75 mg 75 mg, oral, Daily, First dose on Sat01/21/24 at 1015 0828 (Given - Provider: Marion Aaron) 0917 (Given - Provider: Katharine Finney RN) 0838 (Given - Provider: Katharine Finney RN) docusate sodium (COLACE) capsule 100 mg(Linked Group 2) 100 mg, oral, 2 times daily, First dose on Sat01/20/24 at 2100, Hold for diarrhea., Indications: constipation 0828 (Given - Provider: Marion Aaron)2108 (Not Given - Provider: Carmita Eden RN - Reason: Patient/family refused) 0916 (Given - Provider: Katharine Finney RN)2045 (Not Given - Provider: Carmita Eden RN - Reason: Patient/family refused) 0838 (Given - Provider: Katharine Finney RN) furosemide (LASIX) tablet 20 mg 20 mg, oral, Daily, First dose on Sat01/23/24 at 0900 0828 (Given - Provider: Marion Aaron) 0916 (Given - Provider: Katharine Finney RN) 0837 (Given - Provider: Katharine Finney RN) guaiFENesin ER (MUCINEX) extended release tablet 600 mg 600 mg, oral, 2 times daily, First dose on Sat01/22/24 at 2100, Do not crush, chew, cut, dissolve, open or otherwise manipulate tablet/capsule. 0828 (Given - Provider: Marion Aaron)2107 (Given - Provider: Carmita Eden RN) 0916 (Given - Provider: Katharine Finney, CAPRI)2043 (Given - Provider: Carmita Eden RN) 0837 (Given - Provider: Katharine Finney RN) insulin glargine (LANTUS, SEMGLEE) 100 unit/mL injection 20 Units 20 Units, subcutaneous, Nightly, First dose (after last modification) on Sat01/27/24 at 2100, Do not hold if NPO. Do not mix with other insulins, Indications: Diabetes Mellitus 2044 (Given - Provider: Carmita Eden RN) insulin glargine (LANTUS, SEMGLEE) 100 unit/mL injection 24 Units (CANCELED) 24 Units, subcutaneous, Nightly, First dose (after last modification) on Sat01/26/24 at 2100, Do not hold if NPO. Do not mix with other insulins, Indications: Diabetes Mellitus 2107 (Given - Provider: Carmita Eden RN) insulin lispro (HumaLOG, ADMELOG) 100 unit/mL injection 0-4 Units 0-4 Units, subcutaneous, Nightly, First dose on Sat01/27/24 at 2100, Blood glucose mg/dL: 199 or less: No insulin 200-249: add 1 unit 250-299: add 2 units 300-349: add 3 units and notify physician for adjustment of insulin orders. 350-399: add 4 units and notify physician for adjustment of insulin orders. Over 400: Notify physician for adjustment of insulin orders. Do NOT hold for NPO Status, Indications: Diabetes Mellitus 2044 (Given - Provider: Carmita Eden RN) insulin lispro (HumaLOG, ADMELOG) 100 unit/mL injection 0-5 Units (CANCELED) 0-5 Units, subcutaneous, Nightly, First dose on Sat01/21/24 at 2100, Blood glucose mg/dL: 149 or less: No insulin 150-199: add 1 unit 200-249: add 2 units 250-299: add 3 units 300-349: add 4 units and notify physician for adjustment of insulin orders. 350-399: add 5 units and notify physician for adjustment of insulin orders. Over 400: Notify physician for adjustment of insulin orders. Do NOT hold for NPO Status, Indications: Diabetes Mellitus 2145 (Given - Provider: Carmita Eden RN) insulin lispro (HumaLOG, ADMELOG) 100 unit/mL injection 0-5 Units 0-5 Units, subcutaneous, 3 times daily with meals, First dose on Sat01/27/24 at 1200, Blood glucose mg/dL: 149 or less: No insulin 150-199: add 1 unit 200-249: add 2 units 250-299: add 3 units 300-349: add 4 units and notify physician for adjustment of insulin orders. 350-399: add 5 units and notify physician for adjustment of insulin orders. Over 400: Notify physician for adjustment of insulin orders. Do NOT hold for NPO Status, Indications: Diabetes Mellitus 1226 (Not Given - Provider: Katharine Finney RN - Reason: Order parameters not met - Comment: BS [phone] (Given - Provider: Katharine Finney RN) 0821 (Not Given - Provider: Katharine Finney RN - Reason: Order parameters not met - Comment: BS [phone] (Given - Provider: Katharine Finney RN) insulin lispro (HumaLOG, ADMELOG) 100 unit/mL injection 6 Units 6 Units, subcutaneous, 3 times daily after meals, First dose (after last modification) on Sat01/27/24 at 1230, If BG greater than or equal to 100 mg/dL, give dose with meals when tray arrives in the room. If BG less than 100 mg/dL or history of poor intake, give after meals - but must be given within 30 min of starting to eat. If patient eating less than 50% of meal, call MD for holding or reducing meal insulin dose. Hold prandial insulin if NPO, unable to eat, or if BG less than 70 mg/dL., Indications: Diabetes Mellitus 1246 (Given - Provider: Katharine Finney RN)1750 (Given - Provider: Katharine Finney RN) 0836 (Given - Provider: Katharine Finney RN)1243 (Given - Provider: Katharine Finney RN) insulin lispro (HumaLOG, ADMELOG) 100 unit/mL injection 8 Units (CANCELED) 8 Units, subcutaneous, 3 times daily after meals, First dose (after last modification) on Sat01/24/24 at 0830, If BG greater than or equal to 100 mg/dL, give dose with meals when tray arrives in the room. If BG less than 100 mg/dL or history of poor intake, give after meals - but must be given within 30 min of starting to eat. If patient eating less than 50% of meal, call MD for holding or reducing meal insulin dose. Hold prandial insulin if NPO, unable to eat, or if BG less than 70 mg/dL., Indications: Diabetes Mellitus 0928 (Given - Provider: Marion Aaron)1254 (Given - Provider: Marion Aaron - Comment: BG 150)1745 (Given - Provider: Mega Wharton RN) 0912 (Not Given - Provider: Katharine Finney RN - Reason: Other - Comment: BS 107) latanoprost (XALATAN) 0.005 % ophthalmic solution 1 drop 1 drop, each eye, Nightly, First dose on Sat01/27/24 at 2100 2045 (Given - Provider: Carmita Eden RN) levothyroxine (SYNTHROID) tablet 88 mcg 88 mcg, feeding tube, Daily (early AM), First dose on Sat01/21/24 at 0600, Administer on an empty stomach, preferably 30 minutes before breakfast. Take 4 hours apart from antacids, iron and calcium products. Separate from tube feeds, if applicable. 0434 (Given - Provider: Carmita Eden RN) 0621 (Given - Provider: Carmita Eden RN) 0414 (Given - Provider: Carmita Eden RN) lidocaine (ASPERCREME) 4 % patch 2 patch 2 patch, transdermal, Administer over 12 Hours, Every 24 hours, First dose (after last modification) on Sat01/24/24 at 0900, Apply to affected area: back 0829 (Not Given - Provider: Marion Aaron - Reason: Patient/family refused) 0919 (Not Given - Provider: Katharine Finney RN - Reason: Patient/family refused) 0840 (Not Given - Provider: Katharine Finney RN - Reason: Patient/family refused) metoprolol tartrate (LOPRESSOR) immediate release tablet 12.5 mg (CANCELED) 12.5 mg, oral, 2 times daily, First dose (after last modification) on Sat01/24/24 at 2100, Hold parameter: SBP <90, HR <60 0828 (Given - Provider: Marion Aaron)2109 (Given - Provider: Carmita Eden RN) 0917 (Given - Provider: Katharine Finney RN)204 (Given - Provider: Carmita Eden RN) metoprolol XL (TOPROL-XL) extended release tablet 12.5 mg 12.5 mg, oral, Daily, First dose on Sat01/28/24 at 0900, Hold for SBP < 100 or HR < 60 Tablets that are scored may be split, but do not crush, chew, dissolve, open or otherwise manipulate tablet/capsule. 0838 (Given - Provider: Katharine Finney RN) polyethylene glycol (MIRALAX) packet 17 g 17 g, oral, Daily, First dose on Sat01/20/24 at 1730, Hold for diarrhea, Indications: constipation 0828 (Given - Provider: Marion Aaron) 0919 (Not Given - Provider: Katharine Finney RN - Reason: Patient/family refused) 0840 (Not Given - Provider: Katharine Finney RN - Reason: Patient/family refused) potassium chloride ER (KLOR-CON) extended release tablet 40 mEq (COMPLETED) 40 mEq, oral, Once, On Sat01/26/24 at 0000, For 1 dose, Tablets should not be crushed, chewed, dissolved, or otherwise manipulated. Capsules may be opened and sprinkled on a spoonful of applesauce or pudding, but the contents of the capsule should not be crushed or chewed. 0243 (Given - Provider: Carmita Eden RN) senna (SENOKOT) tablet 1 tablet(Linked Group 3) 1 tablet, oral, 2 times daily, First dose on Sat01/20/24 at 2100, Hold for diarrhea., Indications: constipation 0828 (Given - Provider: Marion Aaron)2110 (Not Given - Provider: Carmita Eden RN - Reason: Patient/family refused) 0918 (Given - Provider: Katharine Finney RN)2045 (Not Given - Provider: Carmita Eden RN - Reason: Patient/family refused) 0838 (Given - Provider: Katharine Finney RN) timolol (TIMOPTIC) 0.5 % ophthalmic solution 1 drop(Linked Group 1) 1 drop, left eye, 2 times daily, First dose on Sat01/27/24 at 0900 1042 (Given - Provider: Katharine Finney RN)2045 (Given - Provider: Carmita Eedn RN) 0840 (Given - Provider: Katharine Finney RN) PRN Medication Order 01/26/2024 01/27/2024 01/28/2024 dextrose (D10W) 10% bolus 250 mL(Linked Group 4) 250 mL, intravenous, at 1,000 mL/hr, Administer over 15 Minutes, Every 15 min PRN, blood glucose less than 70 mg/dL and UNABLE to swallow/take PO glucose/juice., Starting on Sat01/21/24 at 1329, After treatment for hypoglycemia, recheck BG followed by treatment every 15 minutes until the BG is greater than 100 mg/dL. Then check BG 1 hour post treatment. If BG is less than 100 mg/dL, repeat Q15 minute BG checks and treatment. Call MD for each episode of hypoglycemia., Indications: hypoglycemic disorder dextrose gel in packet 15 g(Linked Group 4) 15 g, oral, Every 15 min PRN, low blood sugar, blood glucose less than 70 mg/dL, Starting on Sat01/21/24 at 1329, If patient is alert and able to eat/drink, give 15 gm glucose or one juice (4 fluid ounces) NOT ORANGE JUICE. After treatment for hypoglycemia, recheck BG followed by treatment every 15 minutes until the BG is greater than 100 mg/dL. Then check BG 1 hour post-treatment. If BG is less than 100 mg/dL, repeat Q15 minute BG checks and treatment. Call MD for each episode of hypoglycemia., Indications: hypoglycemic disorder glucagon injection 1 mg 1 mg, intramuscular, Every 30 min PRN, low blood sugar, blood glucose less than 70 mg/dL AND no IV access AND unable to take PO glucose/juice., Starting on Sat01/21/24 at 1329, After Glucagon is administered, position patient on side if possible to avoid aspiration. Obtain IV access. Follow glucagon treatment with glucose treatment or IV dextrose. After treatment for hypoglycemia, recheck BG followed by treatment every 15 minutes until the BG is greater than 100 mg/dL. Then check BG 1 hour post treatment. If BG is less than 100 mg/dL, repeat Q15 minute BG checks and treatment. Call MD for each episode of hypoglycemia. Reconstitute 1 mg vial with 1 mL SWFI. Use immediately following reconstitution. ondansetron (ZOFRAN) injection 4 mg 4 mg, intravenous, Administer over 2 Minutes, Every 6 hours PRN, nausea, vomiting, Starting on Sat01/20/24 at 1644, Administer no sooner than 6 hours after last dose. oxyCODONE (ROXICODONE) tablet 5 mg 5 mg, oral, Every 4 hours PRN, 1st line for pain, Starting on Sat01/22/24 at 0727, Indications: Pain 826 (Given - Provider: Marion Aaron)2108 (Given - Provider: Carmita Eden, CAPRI) 2100 (Given - Provider: Carmita Eden, CAPRI) prochlorperazine (COMPAZINE) injection 5 mg 5 mg, intravenous, Administer over 2 Minutes, Every 6 hours PRN, nausea, vomiting, 2nd line, Starting on Sat01/21/24 at 0807 Linked Groups Order Group 1: brimonidine (ALPHAGAN) 0.2 % ophthalmic solution 1 dropJump to med 1 drop, left eye, 2 times daily, First dose on Sat01/27/24 at 0900 And timolol (TIMOPTIC) 0.5 % ophthalmic solution 1 dropJump to med 1 drop, left eye, 2 times daily, First dose on Sat01/27/24 at 0900 Group 2: docusate sodium (COLACE) capsule 100 mgJump to med 100 mg, oral, 2 times daily, First dose on Sat01/20/24 at 2100, Hold for diarrhea., Indications: constipation Or docusate (COLACE) 10 mg/mL oral liquid 100 mg (CANCELED) 100 mg, feeding tube, 2 times daily, First dose on Sat01/20/24 at 2100, Hold for diarrhea., Indications: constipation Group 3: senna (SENOKOT) tablet 1 tabletJump to med 1 tablet, oral, 2 times daily, First dose on Sat01/20/24 at 2100, Hold for diarrhea., Indications: constipation Or senna 1.76 mg/mL syrup 8.8 mg (CANCELED) 8.8 mg, feeding tube, 2 times daily, First dose on Sat01/20/24 at 2100, Hold for diarrhea., Indications: constipation Group 4: dextrose gel in packet 15 gJump to med 15 g, oral, Every 15 min PRN, low blood sugar, blood glucose less than 70 mg/dL, Starting on Sat01/21/24 at 1329, If patient is alert and able to eat/drink, give 15 gm glucose or one juice (4 fluid ounces) NOT ORANGE JUICE. After treatment for hypoglycemia, recheck BG followed by treatment every 15 minutes until the BG is greater than 100 mg/dL. Then check BG 1 hour post-treatment. If BG is less than 100 mg/dL, repeat Q15 minute BG checks and treatment. Call MD for each episode of hypoglycemia., Indications: hypoglycemic disorder Or dextrose (D10W) 10% bolus 250 mLJump to med 250 mL, intravenous, at 1,000 mL/hr, Administer over 15 Minutes, Every 15 min PRN, blood glucose less than 70 mg/dL and UNABLE to swallow/take PO glucose/juice., Starting on Sat01/21/24 at 1329, After treatment for hypoglycemia, recheck BG followed by treatment every 15 minutes until the BG is greater than 100 mg/dL. Then check BG 1 hour post treatment. If BG is less than 100 mg/dL, repeat Q15 minute BG checks and treatment. Call MD for each episode of hypoglycemia., Indications: hypoglycemic disorder documented in this encounter Orders Medications Ordered That Alan ht Not Have Been Administered Count Last Ordered Date First Ordered Date amiodarone (PACERONE) tablet 200 mg 4 01/2701/25/2024 amiodarone (PACERONE) tablet 400 mg 1 01/27 lidocaine (ASPERCREME) 4 % patch 2 patch 1 01/24/2024 dextrose (D10W) 10% bolus 250 mL 3 01/21/20 24 01/20/2024 dextrose gel in packet 15 g 2 01/21/2024 01/20/2024 glucagon injection 1 mg 2 01/21/2024 09/0 01/2024 insulin glargine (LANTUS, SE MGLEE) 100 unit/mL injection 14 Units 1 01/21/2024 insulin lispro (HumaLOG, ADM ELOG) 100 unit/mL injection 0-4 Units 1 01/21/2024 insulin lispro (HumaLOG, ADM ELOG) 100 unit/mL injection 5 Units 1 01/21/2024 Carrier Fluids for Secondary Infusion - 0.9% Sodium Chloride 1 01/20/2024 ceFAZolin (ANCEF) 2,000 mg/2 0 mL in sterile water (premix) 2,000 mg 1 01/20/2024 famotidine (PEPCID) 20 mg/50 mL in sodium chloride 0.9% (premix) 20 mg 1 01/20/2024 insulin regular bolus from bag 4-10 Units 1 01/20/2024 insulin regular bolus from bag 4-6 Units 1 01/20/2024 norepinephrine in dextrose 5 % (LEVOPHED) 8,000 mcg/250 mL (32 mcg/mL) infusion (premix) 1 01/20/2024 papaverine injection 1 01/20/2024 sodium chloride 0.9% flush 0.5-20 mL 1 01/2024 sodium chloride 0.9% flush 10-30 mL 1 01/19 sodium chloride 0.9% irrigation 1 vancomycin (VANCOCIN) solution 1 01/20/2024 vancomycin 1,000 mg/50 mL in sterile water (premix) 1,000 mg 1 01/20/2024 vancomycin 1500 mg/515 mL in sodium chloride 0.9% (premix) 1,500 mg 1 01/20/2024 Lab Orders Without Results Count Last Ordered D ate First Ordered Date POCT GLUCOSE DEVICE 54 01/28/2024 01/20/20 Imaging Orders Without Results Count Last Order ed Date First Ordered Date EXTUBATION 1 01/20/2024 Nursing Count Last Ordered Date First Orde red Date TELEMETRY MONITORING 1 01/26/2024 DISCONTINUE VASCULAR ACCESS (SPECIFY) 1 02/2024 Consult Count Last Ordered Date First Orde red Date CONSULT TO ENDOCRINOLOGY DIABETES 1 024 Admission Count Last Ordered Date First Orde red Date ADMIT TO INPATIENT 2 01/20/2024 Transfer Count Last Ordered Date First Orde red Date TRANSFER PATIENT TO NEW UNIT 2 01/21/2024 01/20/2024 Discharge Count Last Ordered Date First Orde red Date DISCHARGE PATIENT 1 01/28/2024 CORE MEASURES Count Last Ordered Date First Ord ered Date REASON FOR NO VTE PROPHYLAXI S - HOSPITAL ADMISSION - MEDICATIONS 2 01/20/2024 ADT Patient Update Count Last Ordered Date Firs t Ordered Date PROVIDER TREATMENT TEAM 1 01/20/2024 documented in this encounter Additional Health Concerns [...] Surveillance for admission to [facility]300. CAP[facility] Tolbert [facility] 01/21/2024 01/21/2024 02/04/2024 3:05 AM C DT documented as of this encounter Care Teams Mgmt Specialist Relationship Specialty Start Date End Date Elpidio Serrato MD PCP - General Internal Medicine 06/09/18 documented as of this encounter
--- OUTSIDE RECORDS SUMMARY | 2024-04-29 14:06 | XMS_ITS | Encounter Summary ---
Author Organization [facility] Address [address] [facility] [address] [place] [address] Phone Care Team Providers Care Telephone Maintenance Mechanic Name Role Phone Elpidio Serrato MD Primary Care Provider [phone] Reason for Visit * Diagnostic Imaging (Routine) - Closed Specialty Diagnoses / Procedures Referred By Constantino t Referred To Contact Diagnoses Coronary artery disease involving buckland heart, unspecified vessel or lesion type, unspecified whether angina present Encounter for preprocedural cardiovascular examination Procedures US Vein Mapping Duplex Lower Extremity Bilateral Stan Barrett MD [address] [facility] [id number] [place] [address] Phone: tel: fax: [address] [address] Referral ID Status Reason Start Date Expiration Date Visits Re quested Visits Authorized [id number] Closed 12/04/2023 01/02/2025 1 1 Encounter Details Date Type Department Care Team (Latest Contact Info) Description 12/12/2023 9:30 AM CDT Ancillary Procedure [facility] [address] [place] [address] 8th [place] [address] [place] [address] Coronary artery disease involving buckland heart, unspecified vessel or lesion type, unspecified whether angina present; Encounter for preprocedural cardiovascular examination; Encounter for other preprocedural examination Social History Tobacco Use Types Packs/Day Years Used Date Smoking Tobacco: Never Smokeless Tobacco: Never AUDIT-C Answer Date Recorded Q1: How often do you have a drink containing alcohol? Never 11/25/2023 Q2: How many drinks containi ng alcohol do you have on a typical day when you are drinking? Patient does not drink Q3: How often do you have si x or more drinks on one occasion? Never 11/25/2023 Personal Safety Answer Date Recorded Have you ever been in or are you currently in a harmful physical or emotional relationship or is someone making you feel afraid or unsafe? Denies 11/25/2023 Comments No Sex and Gender Information Value Date Recorded Sex Assigned at Not on file Legal Sex Female 3:59 AM CULINARY ASSISTANT Gender Identity Female 05/13/2021 4:21 PM CULINARY ASSISTANT Sexual Orientation Not on file documented as of this encounter Plan of Treatment Not on file documented as of this encounter Procedures Procedure Name Priority Date/Time Associated Diagnosis Comments US VEIN MAPPING DUPLEX LOWER EXTREMITY BILATERAL Schedule Routine, Read Routine (OP Routine) 12/12/2023 9:53 AM CDT Coronary artery disease involving buckland heart, unspecified vessel or lesion type, unspecified whether angina present Encounter for preprocedural cardiovascular examination US CAROTIDS DUPLEX BILATERAL Schedule Routine, Read Routine (OP Routine) 12/12/2023 9:53 AM CDT Coronary artery disease involving buckland heart, unspecified vessel or lesion type, unspecified whether angina present Encounter for preprocedural cardiovascular examination Encounter for other preprocedural examination documented in this encounter Results * US Carotids Duplex Bilateral (12/12/2023 9:53 AM CDT) Anatomical Region Laterality Modality Vascular Bilateral Ultrasound 12/12/2023 8:56 AM CDT Narrative 12/12/2023 5:09 PM CDT [facility] - Department of Vascular Surgery, Vascular Laboratory [address] [place] [address] Carotid Duplex Ultrasound Report Patient Name: LEVON FIGUEREDO : 1950 (73y 8m) Study Date: 12/12/2023 8:56:33 AM Gender: F Tech: Zakia LONGLyubov Location: [facility] Ref Provider: STAN BARRETT ?Quality: Adequate Order Provider: STAN BARRETT PROCEDURES: Carotid Report: Carotid duplex examination of the extracranial arteries was performed using 2D, color and spectral Doppler. 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 Measurements: Right ?Left Measurement ?Value ?Units ? Measurement ?Value ?Units RT Prox CCA PSV ?103 ?cm/sec ?LT Prox CCA PSV ?111 ?cm/sec RT Prox CCA EDV ?21 ? cm/sec ?LT Prox CCA EDV ?20 ? cm/sec RT Distal CCA PSV ?90 ? cm/sec ?LT Distal CCA PSV ?88 ? cm/sec RT Distal CCA EDV ?19 ? cm/sec ?LT Distal CCA EDV ?17 ? cm/sec RT Prox ICA PSV ?85 ? cm/sec ?LT Prox ICA PSV ?89 ? cm/sec RT Prox ICA EDV ?21 ? cm/sec ?LT Prox ICA EDV ?22 ? cm/sec RT Mid ICA PSV ? 95 ? cm/sec ?LT Mid ICA PSV ? 90 ? cm/sec RT Mid ICA EDV ? 28 ? cm/sec ?LT Mid ICA EDV ? 29 ? cm/sec RT Distal ICA PSV ?70 ? cm/sec ?LT Distal ICA PSV ?86 ? cm/sec RT Distal ICA EDV ?26 ? cm/sec ?LT Distal ICA EDV ?25 ? cm/sec RT ECA Prx PSV ? 85 ? cm/sec ?LT ECA Prx PSV ? 52 ? cm/sec RT ICA/CCA ? 1.06 ? ratio ? LT ICA/CCA ? 1.02 ? ratio RT VERT PSV ?53 ? cm/sec ?LT VERT PSV ?40 ? cm/sec - FINDINGS: Performing Interactive Developer: Coby Levy RVT. Rt Common Carotid Artery: Duplex imaging of the right common carotid artery is within normal limits without evidence of atherosclerotic disease. Rt Internal Carotid Artery: Duplex imaging of the right internal carotid artery is within normal limits without evidence for atherosclerotic disease. Rt External Carotid Artery: The right external carotid artery is patent without evidence of atherosclerotic plaque. Rt Vertebral Artery: The right vertebral artery is patent with antegrade flow. Lt Common Carotid Artery: Duplex imaging of the left common carotid artery is within normal limits without evidence of atherosclerotic disease. Lt Internal Carotid Artery: Duplex imaging of the left internal carotid artery is within normal limits without evidence of atherosclerotic disease. Lt External Carotid Artery: The left external carotid artery is patent without evidence of atherosclerotic plaque. Lt Vertebral Artery: The left vertebral artery is patent with antegrade flow. CONCLUSIONS: 1. Normal bilateral internal carotid arteries, no evidence of plaque. 2. No evidence of hemodynamically significant stenosis in the common carotid artery bilaterally. 3. Normal, antegrade flow is noted in bilateral vertebral arteries. HISTORY: HTN, DM, CAD. PREVIOUS STUDIES: No previous studies for comparison. DISCLAIMER: The study images and the final report will be retained in the patient chart by the Vascular Laboratory for the legally required time period. This chart constitutes the legal record of any testing performed. ATTESTATION: I have reviewed and interpreted the pertinent images and measurements of this study. I attest to the conclusions in the final report that is provided above. Electronically Signed By: Wilfriod Mcginnis MD FACS 2023-12-12 17:09:16 CDT Procedure Note Wilfrido Mcginnis MD - 12/12/2023 [facility] - Department of Vascular Surgery,Vascular Laboratory [address] [place] [address] Carotid Duplex Ultrasound Report Patient Name: LEVON FIGUEREDO : 1950 (73y 8m) Study Date: 12/12/2023 8:56:33 AM Gender: F Tech: Zakia LEVY Location: [facility] Ref Provider: STAN BARRETT Quality: Adequate Order Provider: STAN BARRETT PROCEDURES: Carotid Report: Carotid duplex examination of the extracranial arterieswas performed using 2D, color and spectral Doppler. INDICATIONS: I25.10 Atherosclerotic heart disease of buckland coronary artery withoutangina pectoris, Z01.810 Encounter for preprocedural cardiovascular examination, andZ01.818 Encounter for other preprocedural examination. Measurements: Right Left Measurement Value Units Measurement ValueUnits RT Prox CCA PSV 103 cm/sec LT Prox CCA PSV 111cm/sec RT Prox CCA EDV 21 cm/sec LT Prox CCA EDV 20cm/sec RT Distal CCA PSV 90 cm/sec LT Distal CCA PSV 88cm/sec RT Distal CCA EDV 19 cm/sec LT Distal CCA EDV 17cm/sec RT Prox ICA PSV 85 cm/sec LT Prox ICA PSV 89cm/sec RT Prox ICA EDV 21 cm/sec LT Prox ICA EDV 22cm/sec RT Mid ICA PSV 95 cm/sec LT Mid ICA PSV 90cm/sec RT Mid ICA EDV 28 cm/sec LT Mid ICA EDV 29cm/sec RT Distal ICA PSV 70 cm/sec LT Distal ICA PSV 86cm/sec RT Distal ICA EDV 26 cm/sec LT Distal ICA EDV 25cm/sec RT ECA Prx PSV 85 cm/sec LT ECA Prx PSV 52cm/sec RT ICA/CCA 1.06 ratio LT ICA/CCA 1.02ratio RT VERT PSV 53 cm/sec LT VERT PSV 40cm/sec - FINDINGS: Performing Interactive Developer: Coby Levy RVT. Rt Common Carotid Artery: Duplex imaging of the right common carotidartery is within normal limits without evidence of atherosclerotic disease. Rt Internal Carotid Artery: Duplex imaging of the right internal carotidartery is within normal limits without evidence for atherosclerotic disease. Rt External Carotid Artery: The right external carotid artery is patentwithout evidence of atherosclerotic plaque. Rt Vertebral Artery: The right vertebral artery is patent with antegradeflow. Lt Common Carotid Artery: Duplex imaging of the left common carotid arteryis within normal limits without evidence of atherosclerotic disease. Lt Internal Carotid Artery: Duplex imaging of the left internal carotidartery is within normal limits without evidence of atherosclerotic disease. Lt External Carotid Artery: The left external carotid artery is patentwithout evidence of atherosclerotic plaque. Lt Vertebral Artery: The left vertebral artery is patent with antegradeflow. CONCLUSIONS: 1. Normal bilateral internal carotid arteries, no evidence of plaque. 2. No evidence of hemodynamically significant stenosis in the commoncarotid artery bilaterally. 3. Normal, antegrade flow is noted in bilateral vertebral arteries. HISTORY: HTN, DM, CAD. PREVIOUS STUDIES: No previous studies for comparison. DISCLAIMER: The study images and the final report will be retained in the patientchart by the Vascular Laboratory for the legally required time period. This chartconstitutes the legal record of any testing performed. ATTESTATION: I have reviewed and interpreted the pertinent images and measurements ofthis study. I attest to the conclusions in the final report that is provided above. Electronically Signed By: Wilfrido Mcginnis MD [facility] 2023-12-12 17:09:16 CDT Stan Barrett MD [facility] PROCEDURES Final Resul t * US Vein Mapping Duplex Lower Extremity Bilateral (12/12/2023 9:53 AM CDT) Anatomical Region Laterality Modality Vascular Bilateral Ultrasound 12/12/2023 9:10 AM CDT Narrative 12/12/2023 5:07 PM CDT [facility] - Department of Vascular Surgery, Vascular Laboratory [address] [place] [address] Lower Extremity Vein Mapping Report Patient Name: LEVON FIGUEREDO : 1950 (73y 8m) Study Date: 12/12/2023 9:10:11 AM Gender: F Interactive Developer: Zakia LEVY Location: [facility] Provider: STAN BARRETT ?Quality: Adequate Order Provider: STAN BARRETT PROCEDURES: Mapping Report: Bilateral Lower Extremity Saphenous Vein Mapping. INDICATIONS: I25.10 Atherosclerotic heart disease of buckland coronary artery without angina pectoris, and Z01.810 Encounter for preprocedural cardiovascular examination. Measurements: Right Leg ?Left Leg Measurement ?Value ? Units ?Measurement ?Value ? Units Rt Sapheno-Femoral Junction ?0.75 ?cm ? Lt Sapheno-Femoral Junction ?0.68 ?cm Rt Great Saphenous Thigh - Proximal ?0.41 ?cm ? Lt Great Saphenous Thigh - Proximal ?0.48 ?cm Rt Great Saphenous Thigh - Mid ? 0.27 ?cm ? Lt Great Saphenous Thigh - Mid ? 0.34 ?cm Rt Great Saphenous Thigh - Distal ?0.25 ?cm ? Lt Great Saphenous Thigh - Distal ?0.36 ?cm Rt Great Saphenous Knee ?0.24 ?cm ? Lt Great Saphenous Knee ?0.28 ?cm Rt Great Saphenous Calf - Proximal ? 0.18 ?cm ? Lt Great Saphenous Calf - Proximal ? 0.22 ?cm Rt Great Saphenous Calf - Mid ?0.18 ?cm ? Lt Great Saphenous Calf - Mid ?0.25 ?cm Rt Great Saphenous Calf - Distal ? 0.18 ?cm ? Lt Great Saphenous Calf - Distal ? 0.30 ?cm Rt Small Saphenous Proximal ?Unable to locate ?cm ? Lt Small Saphenous Proximal ?0.29 ?cm Rt Small Saphenous Mid ? Unable to locate ?cm ? Lt Small Saphenous Mid ? 0.27 ?cm Rt Small Saphenous Distal ?Unable to locate ?cm ? Lt Small Saphenous Distal ?0.24 ?cm - FINDINGS: Performing Interactive Developer: Coby Levy RVT. Bilateral: The common femoral, femoral, popliteal veins were evaluated with compression maneuvers. No evidence of deep vein thrombus by duplex, proximal to the calf. Noninvasive venous studies cannot rule out an isolated calf vein obstruction. Duplex imaging of bilateral great and small saphenous veins reveals the cross-sectional measurements noted above. No evidence of superficial vein thrombus. CONCLUSIONS: 1. Duplex imaging of bilateral great and small saphenous veins reveals the cross-sectional measurements noted above. No evidence of deep or superficial vein thrombus bilaterally. HISTORY: HTN, DM, CAD. PREVIOUS STUDIES: No previous studies for comparison. DISCLAIMER: The study images and the final report will be retained in the patient chart by the Vascular Laboratory for the legally required time period. This chart constitutes the legal record of any testing performed. ATTESTATION: I have reviewed and interpreted the pertinent images and measurements of this study. I attest to the conclusions in the final report that is provided above. Electronically Signed By: Wilfrido Mcginnis MD [facility] 2023-12-12 17:06:48 CDT Procedure Note Wilfrido Mcginnis MD - 12/12/2023 [facility] - Department of Vascular Surgery,Vascular Laboratory [address] [place] [address] Lower Extremity Vein Mapping Report Patient Name: LEVON FIGUEREDO : 1950 (73y 8m) Study Date: 12/12/2023 9:10:11 AM Gender: F Interactive Developer: Zakia LEVY Location: [facility] Ref Provider: STAN BARRETT Quality: Adequate Order Provider: STAN BARRETT PROCEDURES: Mapping Report: Bilateral Lower Extremity Saphenous Vein Mapping. INDICATIONS: I25.10 Atherosclerotic heart disease of buckland coronary artery withoutangina pectoris, and Z01.810 Encounter for preprocedural cardiovascular examination. Measurements: Right LegLeft Leg Measurement Value UnitsMeasurement Value Units Rt Sapheno-Femoral Junction 0.75 cm LtSapheno-Femoral Junction 0.68 cm Rt Great Saphenous Thigh - Proximal 0.41 cm LtGreat Saphenous Thigh - Proximal 0.48 cm Rt Great Saphenous Thigh - Mid 0.27 cm LtGreat Saphenous Thigh - Mid 0.34 cm Rt Great Saphenous Thigh - Distal 0.25 cm LtGreat Saphenous Thigh - Distal 0.36 cm Rt Great Saphenous Knee 0.24 cm LtGreat Saphenous Knee 0.28 cm Rt Great Saphenous Calf - Proximal 0.18 cm LtGreat Saphenous Calf - Proximal 0.22 cm Rt Great Saphenous Calf - Mid 0.18 cm LtGreat Saphenous Calf - Mid 0.25 cm Rt Great Saphenous Calf - Distal 0.18 cm LtGreat Saphenous Calf - Distal 0.30 cm Rt Small Saphenous Proximal Unable to locate cm LtSmall Saphenous Proximal 0.29 cm Rt Small Saphenous Mid Unable to locate cm LtSmall Saphenous Mid 0.27 cm Rt Small Saphenous Distal Unable to locate cm LtSmall Saphenous Distal 0.24 cm - FINDINGS: Performing Interactive Developer: Coby Levy RVT. Bilateral: The common femoral, femoral, popliteal veins were evaluatedwith compression maneuvers. No evidence of deep vein thrombus by duplex, proximal to thecalf. Noninvasive venous studies cannot rule out an isolated calf vein obstruction. Dupleximaging of bilateral great and small saphenous veins reveals the cross- sectionalmeasurements noted above. No evidence of superficial vein thrombus. CONCLUSIONS: 1. Duplex imaging of bilateral great and small saphenous veins reveals the cross-sectional measurements noted above. No evidence of deep orsuperficial vein thrombus bilaterally. HISTORY: HTN, DM, CAD. PREVIOUS STUDIES: No previous studies for comparison. DISCLAIMER: The study images and the final report will be retained in the patientchart by the Vascular Laboratory for the legally required time period. This chartconstitutes the legal record of any testing performed. ATTESTATION: I have reviewed and interpreted the pertinent images and measurements ofthis study. I attest to the conclusions in the final report that is provided above. Electronically Signed By: Wilfrido Mcginnis MD [facility] 2023-12-12 17:06:48 CDT Stan Barrett MD IM US PROCEDURES Final Resul t documented in this encounter Visit Diagnoses Diagnosis Coronary artery disease involving buckland heart, unspecified vessel or lesion type, unspecified whether angina present Encounter for preprocedural cardiovascular examination Encounter for other preprocedural examination documented in this encounter Care Teams Telephone Maintenance Mechanic Relationship Specialty Start Date End Date Elpidio Serrato MD PCP - General Internal Medicine 06/09/18 documented as of this encounter
--- OUTSIDE RECORDS SUMMARY | 2024-04-29 14:06 | XMS_ITS | Encounter Summary ---
Author Organization [facility] Address [address] [place] [address] Phone Care Team Providers Care Tetryl Screen Operator Name Role Phone Elpidio Serrato MD Primary Care Provider [phone] Encounter Details Date Type Department Care Team (Late st Contact Info) Description 12/05/2023 Telephone [facility] Cardiology [address] [facility] 8th [place] [address] [place] [id number] Rater, JAMES Dunlap [address] [facility] [address] [place] [address] Social History Tobacco Use Types Packs/Day Years [...] on file Legal Sex Female 3:59 AM FIELD SERVICE REP Gender Identity Female 05/13/2021 4:21 PM FIELD SERVICE REP Sexual Orientation Not on file documented as of this encounter Miscellaneous Notes * Telephone Encounter - Nori Ramirez, RN - 12/05/2023 11:00 AM CDT Labs were ordered by CTS, Dr. Treviño. I will send her a mychart msg to contact their team. * Telephone Encounter - Chana Sweeney RN - 12/05/2023 10:40 AM CDT Gen cards/CTS Frannie/Hudson Julio I saw the back and forth whether or not pt needs labs. Looks like Dr Kathleen said no labs needed. Not sure if [facility] team asked pt to get labs. * Telephone Encounter - Deepika Jacobs - 12/05/2023 9:39 AM CDT Rater Patient would like for lab order to be sent to [facility] in [place], [place]. She went there to have labs drawn but they do not have them. Patient would like to be notified once orders are sent so she knows to go have them done. documented in this encounter Plan of Treatment Not on file documented as of this encounter Visit Diagnoses Not on filedocumented in this encounter Care Teams Tetryl Screen Operator Relationship Specialty Start Date End Date Elpidio Serrato MD PCP - General Internal Medicine 06/09/18 documented as of this encounter
--- OUTSIDE RECORDS SUMMARY | 2024-04-29 14:06 | XMS_ITS | Encounter Summary ---
Author Organization [facility] Address [address] [place] [address] Phone Care Team Providers Care Stewardess Supervisor Name Role Phone Elpidio Serrato MD Primary Care Provider [phone] Reason for Visit * Reason Onset Date Comments CMN 12/20/2023 [place] Encounter Details Date Type Department Care Team (Late st Contact Info) Description 12/20/2023 Telephone [facility] Endocrinology Metabolism and Lipid [address] [facility] 13th [place] [address] [place] [address] Martha Boyer RMA CMN ([place]) Social History Tobacco Use Types Packs/Day [...] on file Legal Sex Female 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 See Media. documented in this encounter Plan of Treatment Not on file documented as of this encounter Visit Diagnoses Not on filedocumented in this encounter Care Teams Stewardess Supervisor Relationship Specialty Start Date End Date Elpidio Serrato MD PCP - General Internal Medicine 06/09/18 documented as of this encounter
--- OUTSIDE RECORDS SUMMARY | 2024-04-29 14:06 | XMS_ITS | Encounter Summary ---
Author Organization [facility] Address [address] [facility] [address] [place] [address] Phone Care Team Providers Care Agricultural Purchasing Agent Name Role Phone Elpidio Serrato MD Primary Care Provider [phone] Encounter Details Date Type Department Care Team (Late st Contact Info) Description 12/04/2023 Telephone [facility] Surgery [address] [facility] 8th [place] [address] [place] [address] Stan Treviño MD [address] [facility] [address] [place] [address] Social History Tobacco Use Types Packs/Day Years [...] on file Legal Sex Female 3:59 AM LOGISTICS DIRECTOR Gender Identity Female 05/13/2021 4:21 PM LOGISTICS DIRECTOR Sexual Orientation Not on file documented as of this encounter Miscellaneous Notes * Telephone Encounter - Toyin Moreno - 12/04/2023 11:43 AM CDT Tried calling patient to set up appt with Dr boss and check insurnace information. Left her a message to call us back. Thank you, Toyin documented in this encounter Plan of Treatment Not on file documented as of this encounter Visit Diagnoses Not on filedocumented in this encounter Care Teams Agricultural Purchasing Agent Relationship Specialty Start Date End Date Elpidio Serrato MD PCP - General Internal Medicine 06/09/18 documented as of this encounter
--- OUTSIDE RECORDS SUMMARY | 2024-04-29 14:06 | XMS_ITS | Encounter Summary ---
Author Organization [facility] Address [address] [place] [address] Phone Care Team Providers Care Health Commissioner Name Role Phone Elpidio Serrato MD Primary Care Provider [phone] Encounter Details Date Type Department Care Team (Late st Contact Info) Description 12/17/2023 Telephone 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 Gibson's recommendations; she verbalizes understanding. Pt is hesitant to having f/u at the [facility] location due to distance. She will decide where she wants to f/uafter her surgery * Telephone Encounter - Nori Ramirez RN - 12/17/2023 11:46 AM CDT ----- Message from Kvng Gibson MD sent at 12/17/2023 11:18 AM CDT ----- Hello, can you let her know I spoke with the heart surgeon and that likely the best plan will be todo bypass. We can see her after heart surgery Thanks, Kvng Gibson MD, [facility], [facility] Marriage Performerarea development manager documented in this encounter Plan of Treatment Not on file documented as of this encounter Visit Diagnoses Not on filedocumented in this encounter Care Teams Health Commissioner Relationship Specialty Start Date End Date Elpidio Serrato MD PCP - General Internal Medicine 06/09/18 documented as of this encounter
--- OUTSIDE RECORDS SUMMARY | 2024-04-29 14:06 | XMS_ITS | Encounter Summary ---
Author Organization [facility] Address [address] [facility] [address] [place] [address] Phone Care Team Providers Care It Software Engineer Name Role Phone Elpidio Serrato MD Primary Care Provider [phone] Reason for Referral * Procedure (Routine) - Closed Specialty Diagnoses / Procedures Referred By Constantino alvarado Referred To Contact Pulmonology Diagnoses Coronary artery disease involving salamatof heart, unspecified vessel or lesion type, unspecified whether angina present Encounter for preprocedural cardiovascular examination Procedures Pulmonary Function Test -[facility] Adult PFT Lab- [facility]-8D; Standard; Spirometry, Spirometry w/bronchodilator, DLCO and Lung Volumes Stan Barrett MD [address] [facility] [facility] [address] [place] [address] Phone: tel: fax: Referral ID Status Reason Start Date Expiration Date Visits Re quested Visits Authorized [id number] Closed 12/04/2023 01/02/2025 1 1 * Diagnostic Imaging (Routine) - Closed Specialty Diagnoses / Procedures Referred By Constantino alvarado Referred To Contact Diagnoses Coronary artery disease involving salamatof heart, unspecified vessel or lesion type, unspecified whether angina present Encounter for preprocedural cardiovascular examination Encounter for other preprocedural examination Procedures US Carotids Duplex Bilateral Stan Barrett MD [address] [facility] [address] [place] [address] Phone: tel: fax: [address] [phone] Referral ID Status Reason Start Date Expiration Date Visits Re quested Visits Authorized [id number] Closed 12/04/2023 01/02/2025 1 1 * Diagnostic Imaging (Routine) - Closed Specialty Diagnoses / Procedures Referred By Contac t Referred To Contact Diagnoses Coronary artery disease involving salamatof heart, unspecified vessel or lesion type, unspecified whether angina present Encounter for preprocedural cardiovascular examination Procedures US Vein Mapping Duplex Lower Extremity Bilateral Stan Barrett MD [address] [facility] [place] [address] [place] [address] Phone: tel: fax: [address] [phone] Referral ID Status Reason Start Date Expiration Date Visits Re quested Visits Authorized [id number] Closed 12/04/2023 01/02/2025 1 1 * MRI/CAT/PET Scan (Routine) - Closed Specialty Diagnoses / Procedures Referred By Contac t Referred To Contact Radiology Diagnoses Coronary artery disease involving salamatof heart, unspecified vessel or lesion type, unspecified whether angina present Encounter for preprocedural cardiovascular examination Procedures CT Chest Abdomen Pelvis W Contrast Stan Barrett MD [address] [facility] [address] [place] [address] Phone: tel: fax: [address] [phone] Referral ID Status Reason Start Date Expiration Date Visits Re quested Visits Authorized [id number] Closed 12/04/2023 01/02/2025 1 1 Encounter Details Date Type Department Care Team (Latest Contact Info) Description 12/04/2023 Orders Only [facility] Cardiothoracic Surgery [address] [facility] 8th Floor [address] Room [address] [place] [address] Stan Barrett MD [address] [place] [address] [facility] [address] [place] [address] Coronary artery disease involving salamatof heart, unspecified vessel or lesion type, unspecified whether angina present (Primary Dx); Encounter for preprocedural cardiovascular examination; Encounter for [...] file 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 Female 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 Gender Identity Female 05/13/2021 4:21 PM FIELD REP Sexual Orientation Not on file documented as of this encounter Plan of Treatment Not on file documented as of this encounter Results * US Carotids Duplex Bilateral (12/12/2023 9:53 AM CDT) Anatomical Region Laterality Modality Vascular Bilateral Ultrasound 12/12/2023 8:56 AM CDT Narrative 12/12/2023 5:09 PM CDT [facility] - Department of Vascular Surgery, Vascular Laboratory [address] [place] [id number] Carotid Duplex Ultrasound Report Patient Name: LEVON FIGUEREDO : [birth year] (73y 8m) Study Date: 12/12/2023 8:56:33 AM Gender: F Tech: Zakia GALARZA Location: [facility] Provider: STAN BARRETT ?Quality: Adequate Order Provider: STAN BARRETT PROCEDURES: Carotid Report: Carotid duplex examination of the extracranial arteries was performed using 2D, color and spectral Doppler. 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 cm/sec - FINDINGS: Performing City Wellness Coordinator: Coby Galarza RVT. Rt Common Carotid Artery: Duplex imaging [...] above. Electronically Signed By: Wilfrido Mcginnis MD FACS 2023-12-12 17:09:16 CDT Procedure Note Wilfrido Mcginnis MD - 12/12/2023 [facility] - Department of Vascular Surgery,Vascular Laboratory [address] [place] [address] Carotid Duplex Ultrasound Report Patient Name: LEVON FIGUEREDO : 1950 (73y 8m) Study Date: 12/12/2023 8:56:33 AM Gender: F Tech: Zakia GALARZA Location: [facility] Ref Provider: STAN BARRETT Quality: Adequate Order Provider: STAN BARRETT PROCEDURES: Carotid Report: Carotid duplex examination of the extracranial arterieswas performed using 2D, color and spectral Doppler. INDICATIONS: I25.10 Atherosclerotic heart disease of salamatof coronary artery withoutangina pectoris, Z01.810 Encounter for [...] LT VERT PSV 40cm/sec - FINDINGS: [place]forming [place] Wellness Coordinator: Coby Galarza RVT. Rt Common Carotid Artery: Duplex imaging [...] above. Electronically Signed By: Wilfrido Mcginnis MD FACS 2023-12-12 17:09:16 CDT us Stan Barrett MD [facility] US PROCEDURES Final Resul t * US Vein Mapping Duplex Lower Extremity Bilateral (12/12/2023 9:53 AM CDT) Anatomical Region Laterality Modality Vascular Bilateral Ultrasound 12/12/2023 9:10 AM CDT Narrative 12/12/2023 5:07 PM CDT [facility] - Department of Vascular Surgery, Vascular Laboratory [address] [place] [address] Lower Extremity Vein Mapping Report Patient Name: LEVON FIGUEREDO : 1950 (73y 8m) Study Date: 12/12/2023 9:10:11 AM Gender: F City Wellness Coordinator: Zakia GALARZA Location: [facility] Provider: STAN BARRETT ?Quality: Adequate Order Provider: STAN BARRETT PROCEDURES: Mapping Report: Bilateral Lower Extremity Saphenous Vein Mapping. 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 Bilateral: The common femoral, femoral, popliteal [...] above. Electronically Signed By: Wilfrido Mcginnis MD [facility] 2023-12-12 17:06:48 CDT Procedure Note Wilfrido Mcginnis MD - 12/12/2023 [facility] - Department of Vascular Surgery,Vascular Laboratory [address] [place] [address] Lower Extremity Vein Mapping Report Patient Name: LEVON FIGUEREDO : 1950 (73y 8m) Study Date: 12/12/2023 9:10:11 AM Gender: F City Wellness Coordinator: Zakia GALARZA Location: [facility] Ref Provider: STAN BARRETT Quality: Adequate Order Provider: STAN BARRETT PROCEDURES: Mapping Report: Bilateral Lower Extremity Saphenous Vein Mapping. INDICATIONS: I25.10 Atherosclerotic heart disease of salam[place]of coronary artery withoutangina pectoris, and Z01.810 Encounter [...] Saphenous Distal 0.24 cm - FINDINGS: [place]forming [place] Wellness Coordinator: Coby Galarza RVT. Bilateral: The common femoral, femoral, popliteal [...] above. Electronically Signed By: Wilfrido Mcginnis MD [facility] 2023-12-12 17:06:48 CDT us Stan Barrett MD [facility] US PROCEDURES Final Resul t * (ABNORMAL) Basic metabolic panel (12/12/2023 8:51 AM CDT) Sodium 143 135 - 145 mmol/L Potassium, pl 4.0 3.3 - 4.9 mmol/L [facility] Chloride 104 97 - 110 mmol/L [facility] CO2 29 22 - 32 mmol/L [facility] Anion gap 10 2 - 15 mmol/L [facility] BUN 23 6 - 25 mg/dL [facility] Creatinine 1.19(H) 0.60 - 1.10 mg/dL [facility] Glucose 112 70 - 199 mg/dL [facility] Comment: Interpretive Data Fasting glucose >/= 126 [...] interpretive data was last revised 2022. Calcium 9.3 8.5 - 10.3 mg/dL [facility] Blood 12/12/2023 8:51 AM CDT 12/12/2023 9:04 AM CDT us Stan Barrett MD LAB BLOOD ORDERABLES Final Re sult [facility] [place] [address] * Pulmonary Function Test - (12/12/2023 8:27 AM CDT) FVC PRE 2.08 L [facility] FVC %PRE PRED 91 % [facility] FEV1 PRE 1.66 L [facility] FEV1 %PRE PRED 94 % [facility] FEV1/FVC PRE 80.0 % [facility] FRC PL PRE 2.[address] [facility] FRC PL %PRE PRED 89 % [facility] RV PRE 1.72 L [facility] RV %PRE PRED 85 % [facility] TLC PRE 3.90 L [facility] TLC %PRE PRED 90 % [facility] DLCO PRE 15.6 ml/min/mmH g [facility] DLCO %PRE PRED 94 % [facility] Anatomical Region Laterality Modality PFT 12/12/2023 8:13 AM CDT Narrative 12/14/2023 4:01 PM CDT PFT performed at:[place] [place] [facility]- [facility] Procedure:->Standard Standard:->Spirometry, Spirometry w/bronchodilator, DLCO and Lung Volumes Pulmonary Function Test Interpretation SPIROMETRY: Spirometry is normal. The FEV1 and FVC are normal. The FEV1 to FVC ratio is normal. The inspiratory loop is normal. LUNG VOLUMES: TLC measured by plethysmography is normal. Overweight status may be the cause of the decreased ERV. DLCO: The diffusing capacity is normal. Impression: There is no ventilatory defect. There is no impairment of alveolar gas exchange by DLCO. The attending pulmonary physician certifies a physician presence in the [facility] Suite during the administration of aerosolized bronchodilator. The attending pulmonary physician certifies that he/she has reviewed and interpreted the graphic and numerical data of this pulmonary function study and agrees with the written final report. The lower limit of normal for PaO2 and %HbO2 is age dependent. However, the [facility] Pulmonary Function Laboratory defines hypoxemia as a PaO2 <56 mm Hg or a %HbO2 <89%. us Stan Barrett MD PFT ORDERABLES Final Result * CT Chest Abdomen Pelvis W Contrast (12/12/2023 7:55 AM CDT) Anatomical Region Laterality Modality Body N/A Computed Tomogra phy 12/12/2023 8:53 AM CDT Addenda Addendum by Cesar Sutton MD PhD on 02/12/2024 10:15 AM CDT This addendum is placed to provide the correct EXAMINATION and TECHNIQUE as below: EXAMINATION: ??Computed tomography of the chest, abdomen and pelvis with intravenous contrast TECHNIQUE: ??Transaxial computed tomographic images of the chest, abdomen and pelvis were obtained with intravenous contrast according to the Flash protocol after the uneventful administration of 119 mL Opti-Ray 350 intravenous contrast. Electronically signed by: Cesar Sutton MD, PHD Impressions 12/12/2023 8:59 AM CDT 1. ??Few small bilateral pulmonary nodules measuring up to 5mm. Recommend comparison with prior imaging if available to establish stability. If not available and the patient is at high risk for lung cancer (i.e. smoker), consider follow up CT in 12 months per Fleischner criteria. ?? 2. ??Suggestion of masslike thickening of the cecum at the ileocecal valve which is indeterminate. ??Could represent stool but consider further evaluation with colonoscopy if not recently performed. 3. ??3 cm indeterminate right adrenal nodule. ??If no prior imaging is available to document stability, recommend further evaluation with adrenal protocol CT 4. ??Sternotomy measurements as above. Dictated by: Nick Hurley MD The radiology attending physician has personally reviewed this study, and had reviewed and/or edited this written report and agrees with it. Electronically signed by: Cesar Sutton MD, PHD Narrative 12/12/2023 8:59 AM CDT EXAMINATION: ??CT ANGIOGRAPHY OF THE CHEST, ABDOMEN AND PELVIS WITH AND WITHOUT CONTRAST HISTORY: Coronary artery bypass evaluation TECHNIQUE: CT angiography of the chest, abdomen and pelvis was performed prior to and following uneventful intravenous administration of 119 ml Optiray-350 using the pre-endoluminal stent graft protocol. Vascular 3D images were generated on a dedicated workstation and also reviewed. COMPARISON: None available FINDINGS: ?? VASCULAR FINDINGS: Normal anatomy of the great vessels. ??Three-vessel branching pattern of the aorta. ??No aortic aneurysm. ??Mild calcified atherosclerotic disease of the aorta. ??Moderate to severe calcified at this chronic disease of the left main, left anterior descending coronary arteries and moderate disease of the right coronary and left circumflex coronary arteries. Measurements: Measurements of the sinuses of Valsalva: 38 x 39 x 33 mm At the sinotubular junction: 23 x 28 mm Aorta at the level of the main pulmonary artery: 27 x 29 mm Descending thoracic aorta: 20 x 23 mm Sternotomy measurements: The left brachiocephalic vein is 4 mm from the manubrium. The aortic arch is 23 mm from the sternomanubrium junction The right ventricular outflow tract is 16 mm from the mid manubrium. The right ventricle is 9 mm from the lower sternum. The lungs course immediately posterior to the sternum from the sternomanubrial junction through the distal sternum. Mild calcified atherosclerotic disease of the descending aortic arch. No significant calcified disease of the ascending aorta. NON-VASCULAR FINDINGS: Chest: No pulmonary consolidation, pleural effusion or pneumothorax. ??No suspicious pulmonary nodules. Few small bilateral pulmonary nodules the largest in the right middle lobe nodule measures 5mm (TP -104.6) No mediastinal lymphadenopathy. ??Heart size normal. ??No pericardial effusion. Abdomen/Pelvis: No biliary ductal dilatation. ??The gallbladder, pancreas, left adrenal gland and spleen are normal. ??3 cm indeterminate right adrenal nodule. ??Kidneys enhance symmetrically. ??No hydronephrosis. Urinary bladder is normal. ??Uterus is present. ??No suspicious adnexal masses. 3.1 x 2.8 mm masslike density in the cecum abutting the colon. ??No bowel obstruction. ??No free intracranial fluid or gas. No pathologically enlarged retroperitoneal lymph nodes. The abdominal aorta is normal in caliber with mild atherosclerosis. No abdominal pelvic lymphadenopathy. No suspicious osseous lesions Procedure Note Cesar Sutton MD PhD - 12/12/2023 EXAMINATION: CT ANGIOGRAPHY OF THE CHEST, ABDOMEN AND PELVIS WITH AND WITHOUT CONTRAST HISTORY: Coronary artery bypass evaluation TECHNIQUE: CT angiography of the chest, abdomen and pelvis was performed prior to and following uneventful intravenous administration of 119 ml Optiray-350 using the pre-endoluminal stent graft protocol. Vascular 3D images were generated on a dedicated workstation and also reviewed. COMPARISON: None available FINDINGS: VASCULAR FINDINGS: Normal anatomy of the great vessels. Three-vessel branching pattern of the aorta. No aortic aneurysm. Mild calcified atherosclerotic disease of the aorta. Moderate to severe calcified at this chronic disease of the left main, left anterior descending coronary arteries and moderate disease of the right coronary and left circumflex coronary arteries. Measurements: Measurements of the sinuses of Valsalva: 38 x 39 x 33 mm At the sinotubular junction: 23 x 28 mm Aorta at the level of the main pulmonary artery: 27 x 29 mm Descending thoracic aorta: 20 x 23 mm Sternotomy measurements: The left brachiocephalic vein is 4 mm from the manubrium. The aortic arch is 23 mm from the sternomanubrium junction The right ventricular outflow tract is 16 mm from the mid manubrium. The right ventricle is 9 mm from the lower sternum. The lungs course immediately posterior to the sternum from the sternomanubrial junction through the distal sternum. Mild calcified atherosclerotic disease of the descending aortic arch. No significant calcified disease of the ascending aorta. NON-VASCULAR FINDINGS: Chest: No pulmonary consolidation, pleural effusion or pneumothorax. No suspicious pulmonary nodules. Few small bilateral pulmonary nodules the largest in the right middle lobe nodule measures 5mm (TP -104.6) No mediastinal lymphadenopathy. Heart size normal. No pericardial effusion. Abdomen/Pelvis: No biliary ductal dilatation. The gallbladder, pancreas, left adrenal gland and spleen are normal. 3 cm indeterminate right adrenal nodule. Kidneys enhance symmetrically. No hydronephrosis. Urinary bladder is normal. Uterus is present. No suspicious adnexal masses. 3.1 x 2.8 mm masslike density in the cecum abutting the colon. No bowel obstruction. No free intracranial fluid or gas. No pathologically enlarged retroperitoneal lymph nodes. The abdominal aorta is normal in caliber with mild atherosclerosis. No abdominal pelvic lymphadenopathy. No suspicious osseous lesions IMPRESSION: 1. Few small bilateral pulmonary nodules measuring [...] protocol CT 4. Sternotomy measurements as above. Dictated by: Nick Hurley MD The radiology attending physician has personally reviewed this study, and had reviewed and/or edited this written report and agrees with it. Electronically signed by: Cesar Sutton MD, PHD Stan Barrett MD IMG CT PROCEDURES Edited Resu lt - Final documented in this encounter Visit Diagnoses Diagnosis Coronary artery disease involving salamatof heart, unspecified vessel or lesion type, unspecified whether angina present- Primary Encounter for preprocedural cardiovascular examination Encounter for other preprocedural examination Coronary artery disease involving salamatof heart, unspecified vessel or lesion type, unspecified whether angina present Encounter for preprocedural cardiovascular examination Encounter for other preprocedural examination Coronary artery disease involving salam[place]of heart, unspecified vessel or lesion type, unspecified whether angina present Encounter for preprocedural cardiovascular examination Coronary artery disease involving salam[place]of heart, unspecified vessel or lesion type, unspecified whether angina present Encounter for preprocedural cardiovascular examination documented in this encounter Care Teams It Software Engineer Relationship Specialty Start Date End Date Elpidio Serrato MD PCP - General Internal Medicine 06/09/18 documented as of this encounter
--- OUTSIDE RECORDS SUMMARY | 2024-04-29 14:06 | XMS_ITS | Encounter Summary ---
Author Organization [facility] Address [address] [facility] [address] [place] [address] Phone Care Team Providers Care Microfilm Duplicating Unit Supervisor Name Role Phone Elpidio Serrato MD Primary Care Provider [phone] Encounter Details Date Type Department Care Team (Late st Contact Info) Description 12/04/2023 Telephone [facility] Surgery [address] [facility] 8th [place] [address] [place] [id number] Stan Treviño MD [address] [facility] [address] [place] [address] Social History Tobacco Use Types [...] on file 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 Toyin documented in this encounter Plan of Treatment Not on file documented as of this encounter Visit Diagnoses Not on filedocumented in this encounter Care Teams Microfilm Duplicating Unit Supervisor Relationship Specialty Start Date End Date Elpidio Serrato MD PCP - General Internal Medicine 06/09/18 documented as of this encounter
--- OUTSIDE RECORDS SUMMARY | 2024-04-29 14:06 | XMS_ITS | Encounter Summary ---
Author Organization [facility] Healthcare Address [address] [place] [address] Care Team Providers Care Equipment Inspector Name Role Phone Elpidio Serrato MD Primary Care Provider [phone] Encounter Details Date Type Department Care Team (Late st Contact Info) Description 12/12/2023 9:00 AM CDT Lab [facility] Advanced Medicine [facility] ([facility]) [address] [place] [phone] Coronary artery disease involving [place] heart, unspecified vessel or lesion type, unspecified whether angina present; Encounter for preprocedural cardiovascular examination Social History Tobacco Use Types Packs/Day [...] on file 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 Gender Identity Female 05/13/2021 4:21 PM LABORER 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 Sexual Orientation Not on file documented as of this encounter Plan of Treatment Not on file documented as of this encounter Procedures Procedure Name Priority Date/Time Associated Diagnosis Comments EGFR Routine 12/12/2023 8:51 AM CDT Coronary artery disease involving [place] heart, unspecified vessel or lesion type, unspecified whether angina present Encounter for preprocedural cardiovascular examination BASIC METABOLIC PANEL Routine 12/12/2023 8:51 AM CDT Coronary artery disease involving [place] heart, unspecified vessel or lesion type, unspecified whether angina present Encounter for preprocedural cardiovascular examination documented in this encounter Results * (ABNORMAL) eGFR (12/12/2023 8:51 AM CDT) eGFR 48(L) >=60 mL/min/1. 73 m2 Comment: Interpretive Data [...] interpretive data was last reviewed 2021. Blood 12/12/2023 8:51 AM CDT 12/12/2023 9:10 AM CDT us Stan Treviño MD LAB BLOOD ORDERABLES Final Re sult [facility] Department [place] [address] * (ABNORMAL) Basic metabolic panel (12/12/2023 8:51 AM CDT) Sodium 143 135 - 145 mmol/L Potassium, pl 4.0 3.3 - 4.9 mmol/L [facility] Chloride 104 97 - 110 mmol/L [facility] CO2 29 22 - 32 mmol/L [facility] Anion gap 10 2 - 15 mmol/L [facility] BUN 23 6 - 25 mg/dL [facility] Creatinine 1.19(H) 0.60 - 1.10 mg/dL [facility] Glucose 112 70 - 199 mg/dL [facility] Comment: Interpretive Data Fasting glucose >/= 126 [...] 2022. Calcium 9.3 8.5 - 10.3 mg/dL [facility] Blood 12/12/2023 8:51 AM CDT 12/12/2023 9:04 AM CDT Stan Treviño MD LAB BLOOD ORDERABLES Final Re sult [facility] Department [place] [address] documented in this encounter Visit Diagnoses Diagnosis Coronary artery disease involving [place] heart, unspecified vessel or lesion type, unspecified whether angina present Encounter for preprocedural cardiovascular examination documented in this encounter Care Teams Equipment Inspector Relationship Specialty Start Date End Date Elpidio Serrato MD PCP - General Internal Medicine 06/09/18 documented as of this encounter
--- OUTSIDE RECORDS SUMMARY | 2024-04-29 14:06 | XMS_ITS | Encounter Summary ---
Author Organization [facility] Healthcare Address [address] [place] [address] Care Team Providers Care Skill Training Program Coordinator Name Role Phone Elpidio Serrato MD Primary Care Provider [phone] Reason for Visit * Auth/Cert (Routine) Specialty Diagnoses / Procedures Referred By Contac t Referred To Contact Diagnoses Coronary artery disease, unspecified vessel or lesion type, unspecified whether angina present, unspecified whether kashia or transplanted heart Coronary artery disease, unspecified vessel or lesion type, unspecified whether angina present, unspecified whether kashia or transplanted heart [I25.10] Procedures MI CABG W/ARTERIAL GRAFT THREE ARTERIAL GRAFTS MI NDSC SURG W/VIDEO-ASSISTED HARVEST VEIN CABG 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 x3 OROZCO VEIN 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 Referral ID Status Reason Start Date Expiration Date Visits Re quested Visits Authorized [id number] 1 1 Encounter Details Date Type Department Care Team (Late st Contact Info) Description 01/20/2024 8:05 AM CDT Anesthesia Event [facility] Operating Room [address] [place] [address] Diogo Smith MD [address] [place] [address] Chandrakant Saba MD [address] [place] [address] Anesthesia Record Procedure Summary Procedure Name Responsible Anesthesiologist Anesthesia Start Time Anesthesia Stop Time 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 X3 USING OROZCO AND LEFT & RIGHT SAPHENOUS ENDOVEIN HARVEST (Chest) Diogo Smith MD 01/20/24 0805 01/20/24 1637 Events Date Time Event Comment 01/20/2024 0621 In Preop 0757 0804 In Room 0805 An Start 0805 An Start Data 0805 Quick Note Patient with ex tremely poor radial arteries bilaterally. Decision was made to placed L femoral arterial line by the surgery team 0838 An Induction The patient was reevaluated immediately before moderate or deep sedation use and before anesthesia induction. 0840 An Intubation 0856 Perfusion Ready 0856 Start Data 0903 JULIANO placed 0904 Anesthesia Ready 0947 Lungs Down 0948 Proc Start 0948 Incision Start 0948 Sternotomy 0950 Cell Saver Start 1046 Quick Note L femoral arter ial line no longer drawing back. NIBP placed while surgery troubleshooting 1105 Quick Note New R femoral a rterial line placed by surgery team 1142 CPB ON 1142 Cooling Start 1147 Aortic Clamp ON 1258 Rewarming Start 1258 Cooling Stop 1329 An Defib 10J for Vfib 1330 Aortic Clamp OFF 1350 CPB OFF 1517 Sternum closed 1528 JULIANO removed 1556 Cell Saver Stop 1613 an stop data 1616 Proc Fin 1618 Out of Room 1637 Handoff to RN I completed my handoff to the receiving nurse during which we: 1. Patient identified 2. Responsible provider identified 3. Pertinent medical history reviewed 4. Procedure type and surgical course discussed 5. Intraoperative anesthetic management and any significant issues discussed 6. Expectations and concerns for postop period discussed 7. Questions solicited from receiving nurse 8. Patient disposition at the time of handoff: phase II 1637 An Stop Meds Name Total midazolam PF 2 mg lidocaine (cardiac) syringe 2 % 60 mg propofol 100 mg propofol 501.92 mg fentaNYL 1,000 mcg rocuronium 130 mg phenylephrine 100 mcg/mL 2.18 mg norepinephrine 88 mcg heparin 1,000 unit/ml 25,000 Units heparin injection 1,000 unit/mL 15,000 U nits phenylephrine (MARLA-SYNEPHRINE) injection 400 mcg calcium chloride injection 1 g potassium arrest solution 2 mEq/mL 42.4 mEq anticoagulant citrate dextrose solution A injection 1,000 mL sodium chloride 0.9 % irrigation 2,000 m L lidocaine PF (XYLOCAINE) injection 2 % 1 00 mg sodium bicarbonate injection 1 mEq/mL 10 0 mEq magnesium sulfate 5 g in 0.9% sodium chl oride 40 mL (additives solution) 26.9 mL vancomycin 1,500 mg/515 mL 1,500 mg ceFAZolin 4,000 mg esmolol 50 mg norepinephrine in dextrose 5 % (LEVOPHED) 8,000 mcg/250 mL (32 mcg/mL) infusion (premix) 1.09 mg tranexamic acid 2,000 mg insulin regular in 0.9% sodi um chloride (MYXREDLIN) 100 unit/100 mL (1 unit/mL) infusion (premix) 19.7 Units insulin regular 6 Units dexAMETHasone 4 mg/mL 4 mg magnesium sulfate injection 4 mEq/mL 1 g DOBUTamine in dextrose 5% (D OBUTREX) 1,000 mg/250 mL (4,000 mcg/mL) infusion (premix) 53.68 mg protamine 250 mg ondansetron PF (ZOFRAN) 2 mg/mL injectio n 4 mg sugammadex 200 mg electrolyte-A (PLASMA-LYTE) infusion 1,0 00 mL albumin 25 % 100 mL albumin 5 % 250 mL albumin human bottle 5 % 250 mL LR 0 mL Lactated Ringer's (LR) infusion 0 mL * Agents Name O2% N2O O2 N2O Air Sevoflurane Isoflurane Inspired Isoflurane Inspired Sevoflurane * Blood No blood administrations on file. Lines, Drains, and Airways Type Details Placement Removal Peripheral IV Placement Date: 01/20/24; Placement Time: 656; Catheter Size: 20 G; Orientation: Right; Location: Hand; Site Prep: Chlorhexidine; Technique: Anatomical landmarks; Insertion Attempts: 2; Patient Tolerance: Tolerated well 01/20/24 0657 by Joanna Ramos RN Wound 01/20/24; 1120; Incision; Leg; Right, Upper, Lower; [facility] SITE 01/20/24 1120 by Ben Hi Wound 01/20/24; 1127; Incision; Leg; Left, Upper, Lower; [facility] SITE 01/20/24 1127 by Ben Hi Wound 01/20/24; 1524; Incision; Sternum; Anterior 01/20/24 1524 by Ben Hi Arterial Line Placement Date: 01/20/24; Placemnt Time: 08; Size: 20 G; Orientation: Left; Location: Femoral; Site Prep: Other (Comment) (CHLORAPREP); Inserted by: DR. TREVIÑO; Securement: Sutured; Removal Date: 01/20/24; Removal Time: 1048 01/20/24 0838 by Ben Hi 01/20/24 1048 by Ben Hi Urethral Catheter Placement Date: 01/20/24; Placement Time: 0846; Inserted by: DEANDRA FLORES; Type: Double-lumen, Non-latex, Temperature probe; Balloon Size: 10 mL; Urine Returned: Yes; Removal Date: 01/23/24; Removal Time: 0605; Removal Reason: Per protocol 01/20/24 0846 by Ben Hi 01/23/24 0605 by Vanda Valente Arterial Line Placement Date: 01/20/24; Placemnt Time: 1052; Size: 20 G; Orientation: Right; Location: Femoral; Site Prep: Other (Comment) (CHLORAPREP); Inserted by: DR. TREVIÑO; Securement: Sutured; Removal Date: 01/21/24; Removal Time: 1000; Removal Reason: Per order 01/20/24 1052 by Ben Hi 01/21/24 1000 by Shelby Cisneros RN Closed/Suction/Open Drain 01/20/24; 1110; 1; Right; Thigh; Bulb; 19 Fr.; Per order 01/20/24 1110 by Ben Hi 01/21/24 1000 by Shelby Cisneros RN Closed/Suction/Open Drain 01/20/24; 1126; 2; Left; Thigh; Bulb; 19 Fr.; Per order 01/20/24 1126 by Ben Hi 01/21/24 1000 by Shelby Cisneros RN Introducer Placement Date: 01/20/24; Placement Time: 1244 (created via procedure documentation); Existing LDA Placed by: Yes; Size: introducer sheath; Insertion Attempts: 01/21/24; Securement: 1000 01/20/24 1244 by Chandrakant Saba MD 01/21/24 1000 by Shelby Cisneros RN PA Catheter Placement Date: 01/20/24; Placement Time: 1244 (created via procedure documentation); Site Prep: Chlorhexidine; Removal Date: 01/21/24; Removal Time: 1000; Cath Tip Cultured: Yes 01/20/24 1244 by Chandrakant Saba MD 01/21/24 1000 by Shelby Cisneros RN ETT Placement Date: 01/20/24; Placement Time: 1245 (created via procedure documentation); Mask Ventilation: 2; Technique: Video laryngoscopy; Type: ETT - single; Single Lumen Tube Size: 7.5 mm; Cuffed: Yes; Laryngoscope: Carlos; Blade Size: 3; Location: Oral; Grade View: Grade I; Insertion Attempts: 1; Placement Verification: Auscultation, Capnometry; Removal Date: 01/20/24; Removal Time: 213901/20/24 1245 by Chandrakant Saba MD 01/20/24 2140 by Pool Duque RRT Y Chest Tube A and B 01/20/24; 1432; A; Anterior; Mediastinal; 28 Fr.; B; Posterior; Mediastinal; 28 Fr. 01/20/24 1432 by Ben Hi 01/22/24 1624 by Eduard Berger Chest Tube Placement Date: 01/20/24; Placement Time: 143; Inserted by: DR. 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 Sexual Orientation Not on file documented as of this encounter OR Notes * Anesthesia Postprocedure Evaluation - Chandrakant Saba MD - 01/20/2024 4:37 PM CDT Patient: Isabelle Lutz Procedure Summary Date: 01/20/24 Room / Location: [facility] OR POD 3 ROOM 309 / [facility] OR POD 3 Anesthesia Start: 804 Anesthesia Stop: 1636 Procedures: 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 X3 USING OROZCO AND LEFT & RIGHT SAPHENOUS ENDOVEIN HARVEST (Chest) 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 (Thigh) LEFT ATRIAL APPENDAGE EXCLUSION USING 40MM ATRICLIP FLEXV (Chest) ORIF OF STERNUM USING STERNALOCK 360 (Chest) Diagnosis: Coronary artery disease, unspecified vessel or lesion type, unspecified whether angina present, unspecified whether kashia or transplanted heart (Coronary artery disease, unspecified vessel or lesion type, unspecified whether angina present, unspecified whether kashia or transplanted heart [I25.10]) Surgeons: Stan Treviño MD Responsible Provider: Diogo Smith MD Anesthesia Type: general ASA Status: 4 Anesthesia Type: general Last vitals BP 108/47 Pulse 94 Temp 36.3 ??C (97.3 ??F) (Temporal) Resp 21 SpO2 100% Anesthesia Post Evaluation Patient location during evaluation: ICU Patient participation: complete - patient cannot participate Level of consciousness: unconscious Pain score: 0 Pain management: adequate Airway patency: adequate Evidence of recall: unable to evaluate Cardiovascular status: hemodynamically stable and acceptable Respiratory status: acceptable, ETT, intubated and ventilator Hydration status: acceptable Pt is: normothermic Nausea/Vomiting status: none No notable events documented. Cosigned by Diogo Smith MD at 01/21/2024 7:33 AM CDT * Anesthesia Procedure Notes - Chandrakant Saba MD - 01/20/2024 12:44 PM CDTAssociated Order(s): Airway Airway Patient location: OR Urgency: elective Indications for airway management: anesthesia Difficult airway: no Staff: Supervising provider: Diogo Smith MD Placed by: Resident: Chandrakant Saba MD Airway prep: Preoxygenated: yes Patient position: sniffing Mask difficulty assessment: 2 - vent by mask + OA or adjuvant Spontaneous ventilation during airway: absent Sedation level during airway: GA Final airway details: Final airway type: endotracheal airway Tube type: ETT ETT size: 7.5 mm Cuffed: yes Technique used for successful ETT placement: video laryngoscopy Devices/Methods used in placement: stylet Insertion site: oral Blade type: Carlos Video blade type: Millard Blade size: 3 Cormack-Lehane (direct): grade I - full view of glottis Cormack-Lehane (video): grade I - full view of glottis Cuff inflated with: air ETT to teeth: 21 cm Placement verified by: auscultation and CO2 detection Airway secured with: silk tape Number of attempts: 1 * Anesthesia Procedure Notes - Chandrakant Saba MD - 01/20/2024 12:44 PM CDTAssociated Order(s): Central Venous Line Central Venous Line Patient location: OR Indication: CVP monitoring Staff: Supervising provider: Diogo Smith MD Placed by: Resident: Chandrakant Saba MD Procedure prep: Patient position: Trendelenburg. PPE: provider hand hygiene, provider hat/mask, sterile gloves, sterile gown, full body drape, sterile gel and sterile probe covers. Prep solution: chlorhexadine/alcohol was applied to area. Ultrasound Evaluation: Ultrasound was prepped into field. Ultrasound image(s) saved to archive. Prior to the procedure, the cannulated vein was evaluated by ultrasound and deemed suitably patent for access.This vessel was accessed using real-time ultrasound guidance and an image was placed in the patient's medical record Central line: Laterality: right Site: internal jugular Catheter type: introducer sheath Catheter size: 9 Fr. Catheter length: 10 cm Catheter length at skin: 10 cm Technique: anatomy identified with ultrasound, vein located with finder needle, Seldinger technique, wire threaded easily and wire removed intact Venous verification: manometry and ultrasound confirmation Post insertion: all ports aspirated, all ports flushed easily, line sutured in place and occlusive dressing applied Chlorhexidine patch applied: yes Number of attempts: 1 PA catheter placement: PA catheter type: oximetric PA catheter size: 7.5 Fr PA catheter laterality: right PA catheter site: internal jugular Placement guided by: pressure tracing changes and verified by JULIANO PA catheter depth 45 cmNo Assessment: Events: patient tolerated procedure well with no complications * Anesthesia Procedure Notes - Diogo Smith MD - 01/20/2024 12:17 PM CDT Associated Order(s): JULIANO JULIANO Date/time: 01/20/2024 12:18 PM Staff: Supervising anesthesiologist: Diogo Smith MD Performed by: Anesthesiologist: Diogo Smith MD Preprocedure checklist: patient identified, procedure contraindications assessed, procedure consent, risks, benefits and alternatives discussed and JULIANO probe inserted into esophagus using lubricating jelly General procedure Information: Reason for procedure/indications: assessment of surgical repair and hemodynamic monitoring Performed: personally Procedure performed at surgeon's request: yes Results discussed with surgeon: yes Images submitted to archive: yes Patient location: OR Intubated: yes Bite blocked placed: yes Probe Insertion: easy Complications: no Probe type: adult Modalities: 2D imaging, 3D imaging, continuous wave Doppler, pulsed wave Doppler and color Doppler Billing information: Physician requesting echo: Stan Treviño MD CPT code: JULIANO placement and diagnostic exam, non-congenital (64132) ICD code(s) for medical necessity: R93.1 - Abnormal findings on diagnostic imaging of heart and coronary circulation Echocardiographic and doppler measurements: Ventricles: Left ventricle: Cavity size: normal Global function: mildly decreased LVEF%: 40-50 Right ventricle: Cavity size: normal Global function: normal RVEF%: normal Interventricular septum: normal Regional function: 1- Basal anteroseptal: normal 2- Basal anterior: normal 3- Basal anterolateral: normal 4- Basal inferolateral: hypokinetic 5- Basal inferior: hypokinetic 6- Basal inferoseptal: normal 7- Mid anteroseptal: normal 8- Mid anterior: normal 9- Mid anterolateral: normal 10- Mid inferolateral: hypokinetic 11- Mid inferior: hypokinetic 12- Mid inferoseptal: normal 13- Apical anterior: normal 14- Apical lateral: normal 15- Apical inferior: normal 16- Apical septal: normal 17- Melvin: normal Valves: Aortic Valve: Annulus: normal Leaflet morphology: normal Leaflet motion: normal Stenosis: none Regurgitation: none Mitral valve: Annulus: normal Leaflet morphology anterior: normal Leaflet morphology posterior: normal Leaflet motion anterior: normal Leaflet motion posterior: normal Stenosis: none Regurgitation: mild Tricuspid valve: Annulus: normal Leaflet morphology: normal Leaflet motion: normal Stenosis: none Regurgitation: none Pulmonic valve: Annulus: normal Stenosis: none Regurgitation: absent Aorta: Ascending aorta: Size: normal Aortic arch: Size: normal Descending aorta: Size: normal Atria: Right atrium: Size: normal Left atrium: Size: normal (normal) Left atrial appendage: normal Interatrial septum: normal Diastolic function and other findings: Diastolic function: grade I dysfunction Pericardium: normal Left pleural effusion: none Right pleural effusion: normal Pulmonary venous flow: blunted systolic flow Pre-procedure JULIANO exam summary: Normal LV cavity size, mildly depressed LV systolic function (EF=45-50%), inferior-lateral LV wall hypokinesis, RV appears normal in size and function, no /AI, mild to moderate MR, no PFO seen, LAAfree of thrombotic material, normal sized IVC, PAC in place Postprocedure (follow-up) JULIANO exam: LV: unchanged RV: unchanged Interventricular septum: unchanged Aortic valve: unchanged Mitral valve: unchanged Pulmonic valve: unchanged Tricuspid valve: unchanged Atria: unchanged Aorta: unchanged Pericardium: unchanged Left pleural: unchanged Right pleural: unchanged Postprocedure (follow-up) JULIANO exam comments: S/p CABG and TONY clip, improved LV systolic function w/inotropic support, TONY not visible anymore, no dissection membrane seen in thoracic aorta, otherwise no change to pre-procedure assessment Attestation Statement: By signing this report the attending anesthesiologist certifies that he or she has personally reviewed and interpreted the echocardiogram and has reviewed and or edited and agrees with the written comments contained within the report. * Anesthesia Preprocedure Evaluation - Diogo Smith MD - 01/17/2024 11:35 AM CDT Images from the original note were not included. [facility] Preoperative Assessment and Planning Preoperative Evaluation Record Evaluation type/location: [facility] Planned procedure site: [facility] (Pods 2//[facility]) Date: 01/17/24 Anesthesia Evaluation Isabelle Lutz is a 73 y.o. female 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 x3 OROZCO VEIN (Chest) 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 (Thigh) Pre-Op Diagnosis Codes: * Coronary artery disease, unspecified vessel or lesion type, unspecified whether angina present, unspecified whether kashia or transplanted heart [I25.10] HISTORY HPI 73 [...] Other arrhythmia (RBBB + LAFB) Pertinent negatives: NE ; CABG ; systolic/diastolic dysfunction w/o CHF ; valve replacement; atrialfibrillation; pacemaker/ICD; PVD; DVT/PE; drug-eluting stent(s); bare metal stent(s) and unknown stent(s) type Comments: Dr. Kerns DARLIN 10/04/23. 11/2023 C: Severe multivessel coronary disease with chronic total [...] Other + Diabetes mellitus (Dexom. Managed by exploration engineer.) - Diabetes type 2. Outpatient insulin use:current. [...] neck. 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 Starts with SOB then the [...] neck. 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 Starts with SOB then the [...] artery disease 12/18/2023 Coronary artery disease involving kashia heart 12/12/2023 Encounter for preprocedural cardiovascular examination 12/12/2023 ROSE (dyspnea on exertion) 11/19/2023 Stable angina (HCC) 11/16/2023 Hyperphosphatemia 11/15/2023 Abnormal stress echocardiogram 11/15/2023 Congestive heart failure (CMS/HCC) (HCC) 11/12/2023 Age-related osteoporosis without current pathological fracture 04/29/2023 Chronic kidney disease (CKD) stage G3b/A1, moderately decreased glomerular filtration rate (GFR) between 30-44 mL/min/1.73 square meter and albuminuria creatinine ratio less than 30 mg/g ([facility]) 12/25/2021 Vitamin D deficiency 04/01/2019 Clavicle [...] CATARACT EXTRACTION Right 06/14/2022 CE/IOL + goniotomy MI APPENDECTOMY unkown dates per pt MI DELIVERY ONLY Section - in 1972 and 1975 (Added by TW Conv) MI TENDON SHEATH INCISION Hand Incision Tendon Sheath [...] mg 8 hr tablet 01/17/2024 -- -- ProviderAldair MD aspirin 81 mg enteric coated tablet [...] Saturday furosemide (LASIX ORAL) 01/17/2024 -- -- Aldair Prescott MD glucose 4 gram chewable tablet Past Week -- -- Aldair Prescott MD insulin aspart (NovoLOG) 100 unit/mL (3 mL) pen for injection Not Taking 08/20/23 08/19/24 Merna Bell MD Inject 12 Units under the [...] 1 drop into both eyes nightly Notes: 90 day supply is OK with 3 [...] tablet More than a month 11/19/23 11/18/[address] 1 tablet (0.4 mg [...] Synus Rhythm Echocardiogram(s): Stress [facility] - 7/5/24 Ejection Fraction: 45-50% LV Global Function: Mild [...] No MS/ mild MR; No TR; No MI. Diastolic Function: Grade I (impaired relaxation) with nl est filling pressures.Unable to estimate PASP d/t inadequate TR jet. Stress test(s): N/A Cardiac catheterization(s): [facility] - 11/25/23 DIAGNOSTIC IMPRESSION: Severe multivessel [...] Score: 0 Short Blessed Total Score: 0 DOS Physical Exam Medical history, medications, and allergies reviewed. Attestation: I endorse the findings of the anesthesia pre-evaluation assessment dated: 01/17/2024. Airway Exam: Mallampati: III Cervical ROM: limited extension Cardiovascular Exam: Rate: regular Rhythm: regular Pulmonary Exam: LCTA Anesthesia Plan ASA 4 Planned anesthesia: General Team communication plan: oral ET tube Invasive Monitors Planned: Invasive monitors planned: arterial line, central venous catheter, pulmonary artery catheter and JULIANO. Induction: Induction: intravenous. Postoperative Plan: Postoperative administration opioids intended. Postoperative mechanical ventilation intended. Patient's planned disposition post procedure is ICU. No trial extubation planned. Informed Consent: Discussed plan with resident. Anesthesia plan and risks discussed with patient. Consent and Attending signature: I and/or my designee have discussed the anesthesia plan, benefits, possible alternatives, parental presence at time of induction (if indicated), and clinically relevant risks that may include dental injury, unintentional awareness, and/or other complications. The patient and/or parent/legal guardian understand, and agree to proceed. All questions answered. documented in this encounter Miscellaneous Notes * Post-Perfusion - Luan Sol CCP - 01/20/2024 3:56 PM CDT Medications midazolam PF (mg) Date/Time Rate/Dose/Volume Action Admin User Audit 01/20/24 0805 2 mg Given Diogo Smith MD edited lidocaine (cardiac) syringe 2 % (mg) Date/Time Rate/Dose/Volume Action Admin User Audit 01/20/24 0838 60 mg Given Chandrakant Saba MD propofol (mg) Date/Time Rate/Dose/Volume Action Admin User Audit 01/20/24 0838 100 mg Given Chandrakant Saba MD propofol (mcg/kg/min) Dosing weight: 90.6 Date/Time Rate/Dose/Volume Action Admin User Audit 01/20/24 1421 50 mcg/kg/min - 27.18 mL/hr New Bag Chandrakant Saba MD edited 1456 30 mcg/kg/min - 16.308 mL/hr Rate Change Chandrakant Saba MD fentaNYL (mcg) Date/Time Rate/Dose/Volume Action Admin User Audit 01/20/24 0829 50 mcg Given Chandrakant Saba MD 0838 150 mcg Given Chandrakant Saba MD edited 0949 150 mcg Given Diogo Smith MD 0955 150 mcg Given Diogo Smith MD edited 1144 250 mcg Given Chandrakant Saba MD 1358 250 mcg Given Chandrakant Saba MD rocuronium (mg) Date/Time Rate/Dose/Volume Action Admin User Audit 01/20/24 0838 100 mg Given Chandrakant Saba MD 0948 30 mg Given Diogo Smith MD phenylephrine 100 mcg/mL (mcg/kg/min) Dosing weight: 90.6 Date/Time Rate/Dose/Volume Action Admin User Audit 01/20/24 0838 100 mcg Given Chandrakant Saba MD 0839 0.5 mcg/kg/min - 27.18 mL/hr New Bag Chandrakant Saba MD 0925 Stopped Chandrakant Saba MD norepinephrine (mcg) Date/Time Rate/Dose/Volume Action Admin User Audit 01/20/24 0948 8 mcg Given Chandrakant Saba MD 0952 8 mcg Given Chandrakant Saba MD 1135 16 mcg Given Chandrakant Saba MD 1142 16 mcg Given Chandrakant Saba MD 1155 32 mcg Given Chandrakant Saba MD 1324 8 mcg Given Chandrakant Saba MD heparin 1,000 unit/ml (Units) Date/Time Rate/Dose/Volume Action Admin User Audit 01/20/24 1127 25,000 Units Given Chandrakant Saba MD heparin injection 1,000 unit/mL (Units) Date/Time Rate/Dose/Volume Action Admin User Audit 01/20/24 1002 5,000 Units Given Jason Kapoor, GALA Comment: prime 1142 5,000 Units Given Jason Kapoor CCP Comment: Prime 1225 5,000 Units Given Jason Kapoor CCP phenylephrine (MARLA-SYNEPHRINE) injection (mcg) Date/Time Rate/Dose/Volume Action Admin User Audit 01/20/24 1150 50 mcg Given Jason Kapoor CCP 1152 50 mcg Given Jason Kapoor CCP 1330 100 mcg Given Jason Kapoor CCP 1331 100 mcg Given Jason Kapoor CCP 1337 100 mcg Given Jason Kapoor CCP calcium chloride injection (g) Date/Time Rate/Dose/Volume Action Admin User Audit 01/20/24 1348 1 g (over 3 min) Given Jason Kapoor CCP potassium arrest solution 2 mEq/mL (mEq) Date/Time Rate/Dose/Volume Action Admin User Audit 01/20/24 1147 42.4 mEq (over 103 min) Given Jason Kapoor CCP anticoagulant citrate dextrose solution A injection (mL) Date/Time Rate/Dose/Volume Action Admin User Audit 01/20/24 0950 1,000 mL (over 450 min) Given Jason Kapoor CCP sodium chloride 0.9 % irrigation (mL) Date/Time Rate/Dose/Volume Action Admin User Audit 01/20/24 1418 2,000 mL Given Jason Kapoor CCP Comment: Cell Saver Wash lidocaine PF (XYLOCAINE) injection 2 % (mg) Date/Time Rate/Dose/Volume Action Admin User Audit 01/20/24 1330 100 mg (over 3 min) Given Jason Kapoor CCP sodium bicarbonate injection 1 mEq/mL (mEq) Date/Time Rate/Dose/Volume Action Admin User Audit 01/20/24 1152 50 mEq (over 5 min) Given Jason Kapoor CCP 1306 50 mEq Given Jason Kapoor CCP magnesium sulfate 5 g in 0.9% sodium chloride 40 mL (additives solution) (mL) Date/Time Rate/Dose/Volume Action Admin User Audit 01/20/24 1147 26.9 mL (over 103 min) Given Jason Kapoor CCP vancomycin 1,500 mg/515 mL (mg) Date/Time Rate/Dose/Volume Action Admin User Audit 01/20/24 0850 1,500 mg (over 90 min) Given Diogo Smith MD ceFAZolin (mg) Date/Time Rate/Dose/Volume Action Admin User Audit 01/20/24 0930 2,000 mg Given Diogo Smith MD 1530 2,000 mg Given Chandrakant Saba MD esmolol (mg) Date/Time Rate/Dose/Volume Action Admin User Audit 01/20/24 0944 50 mg (over 1 min) Given Diogo Smith MD norepinephrine in dextrose 5% (LEVOPHED) 8,000 mcg/250 mL (32 mcg/mL) infusion (premix) (mcg/kg/min) Dosing weight: 90.6 Date/Time Rate/Dose/Volume Action Admin User Audit 01/20/24 0925 0.04 mcg/kg/min - 6.795 mL/hr New Bag Chandrakant Saba MD edited 1317 0.02 mcg/kg/min - 3.398 mL/hr Rate Change Chandrakant Saba MD 1321 0.04 mcg/kg/min - 6.795 mL/hr Rate Change Chandrakant Saba MD 1339 0.06 mcg/kg/min - 10.192 mL/hr Rate Change Chandrakant Saba MD 1343 0.08 mcg/kg/min - 13.59 mL/hr Rate Change Chandrakant Saba MD 1359 0.04 mcg/kg/min - 6.795 mL/hr Rate Change Chandrakant Saba MD 1411 Stopped Chandrakant Saba MD tranexamic acid (mg) Date/Time Rate/Dose/Volume Action Admin User Audit 01/20/24 1152 2,000 mg Given Chandrakant Saba MD insulin regular in 0.9% sodium chloride (MYXREDLIN) 100 unit/100 mL (1 unit/mL) infusion (premix) (Units/hr) Dosing weight: 90.6 Date/Time Rate/Dose/Volume Action Admin User Audit 01/20/24 1217 3 Units/hr - 3 mL/hr New Bag Chandrakant Saba MD edited 1316 5 Units/hr - 5 mL/hr Rate Change Chandrakant Saba MD insulin regular (Units) Date/Time Rate/Dose/Volume Action Admin User Audit 01/20/24 1240 3 Units Given Chandrakant Saba MD 1316 3 Units Given Chandrakant Saba MD dexAMETHasone 4 mg/mL (mg) Date/Time Rate/Dose/Volume Action Admin User Audit 01/20/24 0904 4 mg Given Chandrakant Saba MD magnesium sulfate injection 4 mEq/mL (g) Date/Time Rate/Dose/Volume Action Admin User Audit 01/20/24 1330 1 g (over 3 min) Given Jason Kapoor CCP DOBUTamine in dextrose 5% (DOBUTREX) 1,000 mg/250 mL (4,000 mcg/mL) infusion (premix) (mcg/kg/min) Dosing weight: 90.6 Date/Time Rate/Dose/Volume Action Admin User Audit 01/20/24 1334 5 mcg/kg/min - 6.795 mL/hr New Bag Chandrakant Saba MD edited 1428 2.5 mcg/kg/min - 3.398 mL/hr Rate Change Chandrakant Saba MD protamine (mg) Date/Time Rate/Dose/Volume Action Admin User Audit 01/20/24 1358 250 mg (over 5 min) Given Chandrakant Saba MD ondansetron PF (ZOFRAN) 2 mg/mL injection (mg) Date/Time Rate/Dose/Volume Action Admin User Audit 01/20/24 1429 4 mg Given Chandrakant Saba MD electrolyte-A (PLASMA-LYTE) infusion (mL) Date/Time Rate/Dose/Volume Action Admin User Audit 01/20/24 1001 New Bag Jason Kapoor, CCP 1002 1,000 mL Stopped Jason Kapoor CCP albumin 25 % (mL) Date/Time Rate/Dose/Volume Action Admin User Audit 01/20/24 1001 New Bag Jason Kapoor, CCP 1002 10 mL Stopped Jason Kapoor CCP Comment: prime 1142 Restarted Jason Kapoor, CCP 1143 40 mL Stopped Jason Kapoor, CCP 1235 New Bag Jason Kapoor, CCP 1236 50 mL Stopped Jason Kapoor CCP albumin 5 % (mL) Date/Time Rate/Dose/Volume Action Admin User Audit 01/20/24 1148 New Bag Jason Kapoor, CCP 1149 250 mL Stopped Jason Kapoor, GALA albumin human bottle 5 % (mL) Date/Time Rate/Dose/Volume Action Admin User Audit 01/20/24 1412 New Bag Chandrakant Saba MD 1421 250 mL Stopped Chandrakant Saba MD LR (mL) Date/Time Rate/Dose/Volume Action Admin User Audit 01/20/24 0904 New Bag Chandrakant Saba MD Lactated Ringer's (LR) infusion (mL/hr) Dosing weight: 90.6 Date/Time Rate/Dose/Volume Action Admin User Audit 01/20/24 0805 100 mL/hr Rate Verify Chandrakant Saba MD edited Events Date Time Event 01/20/2024 0621 Patient in Pre-Op 0757 Ready for Procedure 0804 Patient in Room 0805 Anesthesia Start 0805 Start Data Collection 0805 Quick Note Patient with extremely poor radial arteries bilaterally. Decision was made to placed L femoral arterial line by the surgery team 0838 Induction The patient was reevaluated immediately before moderate or deep sedation use and before anesthesia induction. 0840 Intubation 0856 Perfusion Ready 0856 Start data Collection 0903 JULIANO placed 0904 Anesthesia Ready 0947 Lungs Down 0948 Procedure Start 0948 Incision Start 0948 Sternotomy 0950 Cell Saver Start 1046 Quick Note L femoral arterial line no longer drawing back. NIBP placed while surgery troubleshooting 1105 Quick Note New R femoral arterial line placed by surgery team 1142 CPB ON 1142 Cooling Start 1147 Aortic Clamp ON 1258 Rewarming Start 1258 Cooling Stop 1329 Defibrillation 10J for Vfib 1330 Aortic Clamp OFF 1350 CPB OFF 1517 Sternum closed 1528 JULIANO Removed 1556 Cell Saver Stop Cosigned by Diogo Smith MD at 01/21/2024 7:33 AM CDT documented in this encounter Plan of Treatment Not on file documented as of this encounter Procedures Procedure Name Priority Date/Time Associated Diagnosis Comments ANESTHESIA INTUBATION Routine 01/20/2024 12:44 PM CDT ANESTHESIA CENTRAL VENOUS LINE PLACEMENT Routine 01/20/2024 12:44 PM CDT MI AN PROCEDURE PLACEHOLDER Routine 01/20/2024 12:17 PM CDT documented in this encounter Results * Airway (01/20/2024 12:44 PM CDT) Narrative Chandrakant Saba MD - 01/20/2024 12:44 PM CDT Chandrakant Saba MD ? 01/20/2024 12:45 PM Airway Patient location: OR Urgency: elective Indications for airway management: anesthesia Difficult airway: no Staff: Supervising provider: Diogo Smith MD Placed by: Resident: Chandrakant Saba MD Airway prep: Preoxygenated: yes Patient position: sniffing Mask difficulty assessment: 2 - vent by mask + OA or adjuvant Spontaneous ventilation during airway: absent Sedation level during airway: GA Final airway details: Final airway type: endotracheal airway Tube type: ETT ETT size: 7.5 mm Cuffed: yes Technique used for successful ETT placement: video laryngoscopy Devices/Methods used in placement: stylet Insertion site: oral Blade type: Carlos Video blade type: Millard Blade size: 3 Cormack-Lehane (direct): grade I - full view of glottis Cormack-Lehane (video): grade I - full view of glottis Cuff inflated with: air ETT to teeth: 21 cm Placement verified by: auscultation and CO2 detection Airway secured with: silk tape Number of attempts: 1 us Diogo Smith MD ANESTHESIA ORDERABLES Final Res ult * Central Venous Line (01/20/2024 12:44 PM CDT) Narrative Chandrakant Saba MD - 01/20/2024 12:44 PM CDT Chandrakant Saba MD ? 01/20/2024 12:44 PM Central Venous Line Patient location: OR Indication: CVP monitoring Staff: Supervising provider: Diogo Smith MD Placed by: Resident: Chandrakant Saba MD Procedure prep: Patient position: Trendelenburg. PPE: provider hand hygiene, provider hat/mask, sterile gloves, sterile gown, full body drape, sterile gel and sterile probe covers. Prep solution: chlorhexadine/alcohol was applied to area. Ultrasound Evaluation: Ultrasound was prepped into field. Ultrasound image(s) saved to archive. Prior to the procedure, the cannulated vein was evaluated by ultrasound and deemed suitably patent for access.This vessel was accessed using real-time ultrasound guidance and an image was placed in the patient's medical record Central line: Laterality: right Site: internal jugular Catheter type: introducer sheath Catheter size: 9 Fr. Catheter length: 10 cm Catheter length at skin: 10 cm Technique: anatomy identified with ultrasound, vein located with finder needle, Seldinger technique, wire threaded easily and wire removed intact Venous verification: manometry and ultrasound confirmation Post insertion: all ports aspirated, all ports flushed easily, line sutured in place and occlusive dressing applied Chlorhexidine patch applied: yes Number of attempts: 1 PA catheter placement: PA catheter type: oximetric PA catheter size: 7.5 Fr PA catheter laterality: right PA catheter site: internal jugular Placement guided by: pressure tracing changes and verified by JULIANO PA catheter depth 45 cmNo Assessment: Events: patient tolerated procedure well with no complications us Diogo Smith MD ANESTHESIA ORDERABLES Final Res ult * MI AN PROCEDURE PLACEHOLDER (01/20/2024 12:17 PM CDT) Anatomical Region Laterality Modality Other Narrative 01/20/2024 12:17 PM CDT Diogo Smith MD ? 01/21/2024 ??7:34 AM JULIANO Date/time: 01/20/2024 12:18 PM Staff: Supervising anesthesiologist: Diogo Smith MD Performed by: Anesthesiologist: Diogo Smith MD Preprocedure checklist: patient identified, procedure contraindications assessed, procedure consent, risks, benefits and alternatives discussed and JULIANO probe inserted into esophagus using lubricating jelly General procedure Information: Reason for procedure/indications: assessment of surgical repair and hemodynamic monitoring Performed: personally Procedure performed at surgeon's request: yes Results discussed with surgeon: yes Images submitted to archive: ??yes Patient location: OR Intubated: yes Bite blocked placed: yes Probe Insertion: easy Complications: no Probe type: adult Modalities: 2D imaging, 3D imaging, continuous wave Doppler, pulsed wave Doppler and color Doppler Billing information: Physician requesting echo: Stan Treviño MD CPT code: JULIANO placement and diagnostic exam, non-congenital (93899) ICD code(s) for medical necessity: R93.1 - Abnormal findings on diagnostic imaging of heart and coronary circulation Echocardiographic and doppler measurements: Ventricles: Left ventricle: Cavity size: normal Global function: mildly decreased LVEF%: 40-50 Right ventricle: Cavity size: normal Global function: normal RVEF%: normal Interventricular septum: normal Regional function: 1- Basal anteroseptal: normal 2- Basal anterior: normal 3- Basal anterolateral: normal 4- Basal inferolateral: hypokinetic 5- Basal inferior: hypokinetic 6- Basal inferoseptal: normal 7- Mid anteroseptal: normal 8- Mid anterior: normal 9- Mid anterolateral: normal 10- Mid inferolateral: hypokinetic 11- Mid inferior: hypokinetic 12- Mid inferoseptal: normal 13- Apical anterior: normal 14- Apical lateral: normal 15- Apical inferior: normal 16- Apical septal: normal 17- Melvin: normal Valves: Aortic Valve: Annulus: normal Leaflet morphology: normal Leaflet motion: normal Stenosis: none Regurgitation: none Mitral valve: Annulus: normal Leaflet morphology anterior: normal Leaflet morphology posterior: normal Leaflet motion anterior: normal Leaflet motion posterior: normal Stenosis: none Regurgitation: mild Tricuspid valve: Annulus: normal Leaflet morphology: normal Leaflet motion: normal Stenosis: none Regurgitation: none Pulmonic valve: Annulus: normal Stenosis: none Regurgitation: absent Aorta: Ascending aorta: Size: normal Aortic arch: Size: normal Descending aorta: Size: normal Atria: Right atrium: Size: normal Left atrium: Size: normal (normal) Left atrial appendage: normal Interatrial septum: normal Diastolic function and other findings: Diastolic function: grade I dysfunction Pericardium: normal Left pleural effusion: none Right pleural effusion: normal Pulmonary venous flow: blunted systolic flow Pre-procedure JULIANO exam summary: Normal LV cavity size, mildly depressed LV systolic function (EF=45-50%), inferior-lateral LV wall hypokinesis, RV appears normal in size and function, no /AI, mild to moderate MR, no PFO seen, TONY free of thrombotic material, normal sized IVC, PAC in place Postprocedure (follow-up) JULIANO exam: LV: unchanged RV: unchanged Interventricular septum: unchanged Aortic valve: unchanged Mitral valve: unchanged Pulmonic valve: unchanged Tricuspid valve: unchanged Atria: unchanged Aorta: unchanged Pericardium: unchanged Left pleural: unchanged Right pleural: unchanged Postprocedure (follow-up) JULIANO exam comments: S/p CABG and TONY clip, improved LV systolic function w/inotropic support, TONY not visible anymore, no dissection membrane seen in thoracic aorta, otherwise no change to pre-procedure assessment Attestation Statement: By signing this report the attending anesthesiologist certifies that he or she has personally reviewed and interpreted the echocardiogram and has reviewed and or edited and agrees with the written comments contained within the report. us Diogo Smith MD ANESTHESIA ORDERABLES Final Res ult documented in this encounter Visit Diagnoses Not on filedocumented in this encounter Administered Medications Inactive Administered Medications - up to 3 most recent administrations Medication Order MAR Action Action Date Dose Rate Site albumin 25 % bottle intravenous, Continuous PRN, Starting on Sat01/20/24 at 1001, Anesthesia Intra-op New Bag 01/20/2024 12:35 PM CDT Restarted 01/20/2024 11:42 AM CDT New Bag 01/20/2024 10:01 AM CDT albumin 5 % bottle intravenous, Continuous PRN, Starting on Sat01/20/24 at 1148, Anesthesia Intra-op New Bag 01/20/2024 11:48 AM CDT albumin 5 % bottle intravenous, Continuous PRN, Starting on Sat01/20/24 at 1412, Anesthesia Intra-op New Bag 01/20/2024 2:12 PM CDT calcium chloride IV syringe intravenous, As needed, Starting on Sat01/20/24 at 1348, Anesthesia Intra-op Given 01/20/2024 1:48 PM CDT 1 g ceFAZolin (ANCEF) injection intravenous, Administer over 3 Minutes, As needed, Starting on Sat01/20/24 at 0930, Anesthesia Intra-op Given 01/20/2024 3:30 PM CDT 2,000 mg Given 01/20/2024 9:30 AM CDT 2,000 mg citrate dextrose solution (ACD-A) infusion intravenous, As needed, Starting on Sat01/20/24 at 0950, Anesthesia Intra-op Given 01/20/2024 9:50 AM CDT 1,000 mL dexAMETHasone (DECADRON) 4 mg/mL injection intravenous, Administer over 2 Minutes, As needed, Starting on Sat01/20/24 at 0904, Anesthesia Intra-op Given 01/20/2024 9:04 AM CDT 4 mg DOBUTamine in dextrose 5% (DOBUTREX) 1,000 mg/250 [...] 1:34 PM CDT 5 mcg/kg/min 6.795 mL/hr electrolyte-A (PLASMA-LYTE) infusion intravenous, Continuous PRN, Starting on Sat01/20/24 at 1001, Anesthesia Intra-op New Bag 01/20/2024 10:01 AM CDT esmoloL (BREVIBLOC) injection intravenous, Administer over 1 Minutes, As needed, Starting on Sat01/20/24 at 0944, Anesthesia Intra-op Given 01/20/2024 9:44 AM CDT 50 mg fentaNYL (SUBLIMAZE) preservative free injection intravenous, As needed, Starting on Sat01/20/24 at 0949, Anesthesia Intra-op Given 01/20/2024 1:58 PM CDT 250 mcg Given 01/20/2024 11:44 AM CDT 250 mcg Given 01/20/2024 9:55 AM CDT 150 mcg heparin 1,000 unit/mL injection intravenous, As needed, Starting on Sat01/20/24 at 1002, Anesthesia Intra-op Given 01/20/2024 12:25 PM CDT 5,000 U nits Given 01/20/2024 11:42 AM CDT 5,000 Units Given 01/20/2024 10:02 AM CDT 5,000 Units heparin 1,000 unit/mL injection intravenous, As needed, Starting on Sat01/20/24 at 1127, Anesthesia Intra-op Given 01/20/2024 11:27 AM CDT 25,000 Units insulin regular (HumuLIN R, NovoLIN R) 100 unit/mL injection intravenous, As needed, Starting on Sat01/20/24 at 1240, Anesthesia Intra-op Given 01/20/2024 1:16 PM CDT 3 Units Given 01/20/2024 12:40 PM CDT 3 Units insulin regular in 0.9% sodium chloride (MYXREDLIN) [...] Units/hr 3 mL/hr Lactated Ringer's (LR) infusion intravenous, Continuous PRN, Starting on Sat01/20/24 at 0904, Anesthesia Intra-op New Bag 01/20/2024 9:04 AM CDT lidocaine (cardiac) (XYLOCAINE) preservative free injection intravenous, As needed, Starting on Sat01/20/24 at 0838, Anesthesia Intra-op, Indications: Ventricular ArrhythmiasIndications:Ventricular Arrhythmias Given 01/20/2024 8:38 AM CDT 60 mg lidocaine (PF) (XYLOCAINE) 20 mg/mL (2 %) preservative free injection epidural, As needed, Starting on Sat01/20/24 at 1330, Anesthesia Intra-op Given 01/20/2024 1:30 PM CDT 100 mg magnesium 5 g in 0.9% sodium chloride solution intravenous, As needed, Starting on Sat01/20/24 at 1147, Anesthesia Intra-op Given 01/20/2024 11:47 AM CDT 26.9 mL magnesium sulfate 500 mg/mL (50 %) injection intravenous, As needed, Starting on Sat01/20/24 at 1330, Anesthesia Intra-op Given 01/20/2024 1:30 PM CDT 1 g midazolam (VERSED) 2 mg/2 mL preservative free injection intravenous, Administer over 2 Minutes, As needed, Starting on Sat01/20/24 at 0856, Anesthesia Intra-op Given 01/20/2024 8:05 AM CDT 2 mg norepinephrine (LEVOPHED) injection intravenous, As needed, Starting on Sat01/20/24 at 0948, Anesthesia Intra-op Given 01/20/2024 1:24 PM CDT 8 mcg Given 01/20/2024 11:55 AM CDT 32 mcg Given 01/20/2024 11:42 AM CDT 16 mcg norepinephrine in dextrose 5% (LEVOPHED) 8,000 mcg/250 mL (32 mcg/mL) infusion (premix) 0-2 mcg/kg/min ? 90.6 kg (0-339.75 mL/hr), 32 mcg/mL, intravenous, Titrated, Starting on Sat01/20/24 at 1100, Until Sat01/20/24 at 1644, Indications: hypotension, Initial rate: 0.05 mcg/kg/min, Titrate: Up/Down, Titrate by: 0.01 mcg/kg/min, Every: 2 minutes, Goal: MAP, MAP Goal: 60-70 mmHg, RoutineIndications:hypo tension Rate/Dose Change 01/20/2024 1:59 PM CDT 0.04 mcg/kg/min 6.795 mL/hr Rate/Dose Change 01/20/2024 1:43 PM CDT 0.08 mcg/kg/min 13 .59 mL/hr Rate/Dose Change 01/20/2024 1:39 PM CDT 0.06 mcg/kg/min 10 .192 mL/hr ondansetron (ZOFRAN) injection intravenous, Administer over 2 Minutes, As needed, Starting on Sat01/20/24 at 1429, Anesthesia Intra-op Given 01/20/2024 2:29 PM CDT 4 mg phenylephrine (MARLA-SYNEPHRINE) 1 mg/10 mL (100 mcg/mL) in sodium chloride 0.9% (premix) intravenous, As needed, Starting on Sat01/20/24 at 0838, Anesthesia Intra-op New Bag 01/20/2024 8:39 AM CDT 0.5 mcg/kg/min 27.18 mL/hr Given 01/20/2024 8:38 AM CDT 100 mcg phenylephrine (MARLA-SYNEPHRINE) injection intravenous, As needed, Starting on Sat01/20/24 at 1150, Anesthesia Intra-op Given 01/20/2024 1:37 PM CDT 100 mcg Given 01/20/2024 1:31 PM CDT 100 mcg Given 01/20/2024 1:30 PM CDT 100 mcg potassium chloride 2 mEq/mL arrest solution intracardiac, As needed, Starting on Sat01/20/24 at 1147, Anesthesia Intra-op Given 01/20/2024 11:47 AM CDT 42.4 mEq propofoL (DIPRIVAN) 10 mg/mL IV intravenous, As needed, Starting on Sat01/20/24 at 0838, Anesthesia Intra-op Given 01/20/2024 8:38 AM CDT 100 mg propofoL (DIPRIVAN) 10 mg/mL IV intravenous, Continuous PRN, Starting on Sat01/20/24 at 1421, Anesthesia Intra-op Rate/Dose Change 01/20/2024 3:59 PM CDT 50 mcg/kg/min 27.18 mL/hr Rate/Dose Change 01/20/2024 2:56 PM CDT 30 mcg/kg/min 16.3 08 mL/hr New Bag 01/20/2024 2:21 PM CDT 50 mcg/kg/min 27.18 mL/h r protamine injection intravenous, As needed, Starting on Sat01/20/24 at 1358, Anesthesia Intra-op, Indications: Heparin ToxicityIndications:Heparin Toxicity Given 01/20/2024 1:58 PM CDT 250 mg rocuronium (ZEMURON) injection intravenous, As needed, Starting on Sat01/20/24 at 0948, Anesthesia Intra-op Given 01/20/2024 9:48 AM CDT 30 mg Given 01/20/2024 8:38 AM CDT 100 mg sodium bicarbonate 8.4 % (1 mEq/mL) injection intravenous, Administer over 5 Minutes, As needed, Starting on Sat01/20/24 at 1152, Anesthesia Intra-op Given 01/20/2024 1:06 PM CDT 50 mEq Given 01/20/2024 11:52 AM CDT 50 mEq sodium chloride 0.9% irrigation irrigation, As needed, Starting on Sat01/20/24 at 1418, Anesthesia Intra-op Given 01/20/2024 2:18 PM CDT 2,000 mL sugammadex (BRIDION) 100 mg/mL intravenous solution intravenous, As needed, Starting on Sat01/20/24 at 1630, Anesthesia Intra-op Given 01/20/2024 4:30 PM CDT 200 mg tranexamic acid (CYKLOKAPRON) 1,000 mg/10 mL (100 mg/mL) solution intravenous, As needed, Starting on Sat01/20/24 at 1152, Anesthesia Intra-op Given 01/20/2024 11:52 AM CDT 2,000 m g vancomycin 1500 mg/515 mL in sodium chloride 0.9% (premix) intravenous, Administer over 90 Minutes, As needed, Starting on Sat01/20/24 at 0850, Anesthesia Intra-op Given 01/20/2024 8:50 AM CDT 1,500 mg documented in this encounter Orders Medications Ordered That Alan ht Not Have Been Administered Count Last Ordered Date First Ordered Date sodium chloride 0.9% bolus 1 01/20/2024 documented in this encounter Care Teams Skill Training Program Coordinator Relationship Specialty Start Date End Date Elpidio Serrato MD PCP - General Internal Medicine 06/09/18 documented as of this encounter
--- OUTSIDE RECORDS SUMMARY | 2024-04-29 14:06 | XMS_ITS | Encounter Summary ---
Author Organization [facility] Healthcare Address [address] [place] [address] Care Team Providers Care Biomedical Instrument Technician Name Role Phone Elpidio Serrato MD Primary Care Provider [phone] Reason for Visit * Auth/Cert (Routine) Specialty Diagnoses / Procedures Referred By Contac t Referred To Contact Diagnoses Coronary artery disease, unspecified vessel or lesion type, unspecified whether angina present, unspecified whether [place] or transplanted heart Coronary artery disease, unspecified vessel or lesion type, unspecified whether angina present, unspecified whether [place] or transplanted heart [I25.10] Procedures NV CABG W/ARTERIAL GRAFT THREE ARTERIAL GRAFTS NV NDSC SURG W/VIDEO-ASSISTED HARVEST VEIN CABG 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 x3 AGOSTO VEIN 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 Referral ID Status Reason Start Date Expiration Date Visits Re quested Visits Authorized [id number] 1 1 Encounter Details Date Type Department Care Team (Late st Contact Info) Description 01/20/2024 8:00 AM CDT - 01/20/2024 4:55 PM CDT Surgery [facility] Operating Room [address] [place] [address] Stan Treviño MD [id number] [place] [address] 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 X3 USING AGOSTO AND LEFT & RIGHT SAPHENOUS ENDOVEIN HARVEST Surgery Details Date/Time Status Location OR Service Patient Class Case Class Case Type Trauma Case? 01/20/2024 8:00 AM Posted [facility] OR POD 3 309 Cardiothoracic Surgery Admit Elective Panel 1 Procedure LRB Anes Op Region Wound Class Comments 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 X3 USING AGOSTO AND LEFT & RIGHT SAPHENOUS ENDOVEIN HARVEST N/A General Chest Class I - Emilee n 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 N/A General Thigh Clas s I - Clean LEFT ATRIAL APPENDAGE EXCLUS ION USING 40MM ATRICLIP FLEXV N/A General Chest Class I - Clean ORIF OF STERNUM USING STERNALOCK 360 N/A General Mary Ellen st Class I - Clean Surgeon Surgeon Role Service Panel Stan Treviño MD Primary Cardiothoracic 1 Jeff Alaniz MD Fellow Cardiothoracic 1 documented in this encounter Social History Tobacco [...] on file Legal Sex Female 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 Gender Identity Female 05/13/2021 4:21 PM DRAPERY INSTALLER Sexual Orientation Not on file documented as of this encounter Last Filed Vital Signs Vital Sign Reading Time Taken Comments Blood Pressure 108/47 01/20/2024 7:50 AM CDT Pulse 94 01/20/2024 4:40 PM CDT Temperature 36.3 ??C (97.3 ??F) 01/20/2024 6:35 AM CD T Respiratory Rate 21 01/20/2024 4:40 PM CDT Oxygen Saturation 100% 01/20/2024 4:40 PM CDT Inhaled Oxygen Concentration - - Weight - - Height - - Body Mass Index - - documented in this encounter Discharge Summaries * Eloisa Freeman NP - 01/28/2024 11:59 AM CDT Inpatient Discharge Summary BRIEF OVERVIEW Admitting Provider: Stan Treviño MD Discharge Provider: Stan Treviño MD Primary Care Physician at Discharge: Elpidio Serrato MD [phone] Admission Date: 01/20/2024 Discharge Date: 01/28/2024 Admission Location: [facility] Primary Discharge Diagnosis: 1. On pump Coronary [...] Active Problems: DM2 (diabetes mellitus, type 2) ([facility]) Obesity ABLA (acute blood loss anemia) AF (paroxysmal atrial fibrillation) ([facility]/HCC) ([facility]) Resolved Problems: Leucocytosis Thrombocytopenia ([facility]) DETAILS OF HOSPITAL STAY Presenting Problem/History of Present Illness: 73 y.o. yo female w/ PMHx of HTN, HLD< CAD, mild MR, anemia, CKD, DM type II ( Hgb A1c 5.9), hypothyroidism, and chronic knee pain. He was found to have multivessel diease on [facility] and is being seenby CTS for [...] prior to transfer to the Rehab facility ([facility]) Active Issues Requiring Follow-up: Continue PT/OT at the rehab center until able to discharge to home. Will need to call for appt with Dr Treviño if not already scheduled - office number is [phone]. Operative Procedures Performed: Procedure(s): CORONARY ARTERY BYPASS [...] Your Medications These medications were sent to [facility] - [facility] AT Portal to Registered [facility] Sites [facility] [address] empagliflozin 10 mg tablet insulin lispro 100 [...] AM Merna Bell MD EML CAM 13B LYON IM EML Eloisa Freeman NP Cosigned by Stan [...] Date pen needle, diabetic 32 gauge x needle [...] Comment s Discharge to an Rehab facility [facility] ([place], [place]) documented in this encounter Progress Notes * Christy Limon RN - 01/28/2024 12:58 PM CDT 01/22/24 1312 Discharge Summary Discharge Disposition Acute Rehab Specify Facility [facility] Facility Contact Number [phone] Bowie Discharge Records Transfer Form Completed;Chart Copied Recommended Discharge Level of Care Acute Rehab Actual Discharge Level of Care Acute Rehab Does Actual Level of Care Match Care Team Recommendation? Yes Post Acute Care Plan Post Acute Care Facility Yes Referral Status Accepted Accepted Post Acute Care Location and Contact [facility] Accepted Post Acute Care Discharge Additional Assistance [...] safe transfer. - daughter providing transportation. * KarlaCarol valdez, OT - 01/27/2024 1:45 PM CDT Occupational [...] not assigned to this patient, please call [phone]. 01/27/24 4155 General Session Type Treatment OT Received On [...] none Interval History: Working on transfer to [facility], still with hypoglycemic events, reduced insulins again. Plan for d/c tomorrow to [facility], blood sugars should be stable at that point OBJECTIVE Current Facility-Administered Medications: acetaminophen (TYLENOL) tablet 1,000 mg, 1,000 mg, feeding tube, Q6H LAMONTE, Cinthia Stokes PA, 1,000 mg at 01/27/24 1135 [START ON 01/31/2024] amiodarone (PACERONE) tablet 200 mg, 200 mg, oral, BID, Marisela Russell, JAMES [START ON 02/03/2024] amiodarone (PACERONE) tablet 200 mg, 200 mg, oral, Daily, Marisela Russell, JAMES amiodarone (PACERONE) tablet 400 mg, 400 mg, oral, TID, Marisela Russell NP, 400 mg at 01/27/24 0916 [START ON 01/28/2024] amiodarone (PACERONE) tablet 400 mg, 400 mg, oral, BID, Marisela Russell, JAMES aspirin enteric coated tablet 81 mg, 81 mg, oral, Daily, Cinthia Stokes PA, 81 mg at 01/27/24 0916 atorvastatin (LIPITOR) tablet 40 mg, 40 mg, feeding tube, Daily, Cinhtia Stokes PA, 40 mgat 01/27/24 0916 brimonidine (ALPHAGAN) 0.2 % ophthalmic solution 1 drop, 1 drop, left eye, BID, 1 drop at 01/27/24 1042 AND timolol (TIMOPTIC) 0.5 % ophthalmic solution 1 drop, 1 drop, left eye, BID, Eloisa Freeman NP, 1 drop at 01/27/24 1042 cholecalciferol (VITAMIN [...] 250 mL, intravenous, Q15 Min PRN, Yojana Macdonald, JAMES docusate sodium (COLACE) capsule 100 mg, 100 mg, oral, BID, 100 mg at 01/27/24915 OR docusate(COLACE) 10 mg/mL oral liquid 100 mg, 100 mg, feeding tube, BID, Cinthia Stokes PA, 100 mg at 01/20/242020 furosemide (LASIX) tablet 20 mg, 20 mg, oral, Daily, Nii Garces NP, 20 mg at 01/27/24915 glucagon injection 1 mg, 1 mg, intramuscular, Q30 Min PRN, Yojana Macdonald NP guaiFENesin ER (MUCINEX) extended release tablet 600 mg, 600 mg, oral, BID, Nii Garces NP, 600 mg at 01/27/24915 insulin glargine (LANTUS, SEMGLEE) 100 unit/mL injection 20 Units, 20 Units, subcutaneous, Nightly,Vanita Ware, JAMES insulin lispro (HumaLOG, ADMELOG) 100 unit/mL injection 0-4 Units, 0-4 Units, subcutaneous, Nightly, Vanita Ware, JAMES insulin lispro (HumaLOG, ADMELOG) 100 unit/mL injection 0-5 Units, 0-5 Units, subcutaneous, TID with meals, Vanita Ware, JAMES insulin lispro (HumaLOG, ADMELOG) 100 unit/mL injection 6 Units, 6 Units, subcutaneous, TID PC, Vanita Ware, JAMES, 6 Units at 01/27/24 1246 latanoprost (XALATAN) [...] hours: ASSESSMENT/PLAN AF (paroxysmal atrial fibrillation) (CMS/HCC) ([facility]) Assessment & Plan Short episode of AF [...] bariatric equipment DM2 (diabetes mellitus, type 2) ([facility]) Assessment & Plan - Hemoglobin A1c 5.9 [...] at 02/02/2024 8:52 AM CDT * Ashley Iverson RD - 01/27/2024 8:02 AM CDT Nutrition Screen Note Pt. Screened for nutritional assessment secondary to LOS 01/19: s/p CABG x3, Past Medical History: Diagnosis Date Actinic keratosis 07/17/2012 Age-related osteoporosis without current pathological fracture 04/29/2023 Cataract CHF (congestive heart failure) (CMS/HCC) (HCC) Clavicle enlargement 06/16/2018 Will image to determine [...] 12/09/2017 Type 2 diabetes mellitus with hyperlipidemia ([facility]) 12/07/2016 Last A1C 5.9%, without complication Vitamin D deficiency 04/01/2019 Past Surgical History: Procedure Laterality Date CATARACT EXTRACTION Right 06/14/2022 CE/IOL + goniotomy NV APPENDECTOMY unkown dates per pt NV DELIVERY ONLY Section - in 1972 and 1975 (Added by TW Conv) NV TENDON SHEATH INCISION Hand Incision Tendon Sheath Of A Finger - right hand, III finger, 10 (Added by TW Conv) Anthropometrics Weight: 93.1 [...] Carbohydrate Diet effective now Question Answer Comment ([facility]) Diet type Restricted Fat / Sodium Restriction: Low Fat, Low Chol Diabetic: Consistent Carbohydrate 01/21/24 1345 Assessment / Impression: The pt states her appetite has been improving since surgery. She is ygopoc67% of her meals. She is no longer drinking the Glucerna shakes. Order cancelled. Last BM 01/26. Awaiting rehab bed. Ashley Iverson RD [phone] * Eloisa Freeman NP - 01/26/2024 1:26 PM CDT Cardiac Surgery Daily Progress 01/19: s/p CABG x3 SUBJECTIVE Chief complaint: none Interval History: hypoglycemic x 2 - decreased the lantus today. Remains in NSR. Planning for TRISL at [place] OBJECTIVE Current Facility-Administered Medications: acetaminophen (TYLENOL) tablet 1,000 mg, 1,000 mg, feeding tube, Q6H LAMONTEDivya Abbey Nicole, PA, 1,000 mg at 01/26/24 0434 [START ON 01/31/2024] amiodarone (PACERONE) tablet 200 mg, 200 mg, oral, BID, Marisela Russell, EAR FLAP BINDER [START ON 02/03/2024] amiodarone (PACERONE) tablet 200 mg, 200 mg, oral, Daily, Marisela Russell, EAR FLAP BINDER amiodarone (PACERONE) tablet 400 mg, 400 mg, oral, TID, StMarisela hollis, EAR FLAP BINDER, 400 mg at 01/26/24 0827 [START ON 01/28/2024] amiodarone (PACERONE) tablet 400 mg, 400 mg, oral, BID, Marisela Russell NP aspirin enteric coated tablet 81 mg, 81 mg, oral, Daily, Cinthia Stokes PA, 81 mg at 01/26/24827 atorvastatin (LIPITOR) tablet 40 mg, 40 mg, [...] Cordell Roberts MD, 8 Units at 01/26/24 125 levothyroxine (SYNTHROID) tablet 88 mcg, 88 mcg, [...] bariatric equipment DM2 (diabetes mellitus, type 2) ([facility]) Assessment & Plan - Hemoglobin A1c 5.9 [...] treatment team and contact the PT or MARKET RESEARCH INTERN currently assigned to this patient. If a physical therapy clinician is not assigned to this patient, please call [phone]. Multi-Disciplinary Problems (from Physical Therapy) Active Problems [...] Calculation (min) 23 min * Marisela Russell NP - 01/25/2024 12:52 PM CDT Cardiac Surgery [...] tablet 200 mg, 200 mg, oral, BID, Mariseal Russell, EAR FLAP BINDER [START ON 02/03/2024] amiodarone (PACERONE) tablet 200 mg, 200 mg, oral, Daily, Marisela Russell, JAMES amiodarone (PACERONE) tablet 400 mg, 400 mg, oral, TID, Marisela Russell, EAR FLAP BINDER [START ON 01/28/2024] amiodarone (PACERONE) tablet 400 [...] oral, Q15 Min PRN, 15 g at 01/23/241715 OR dextrose (D10W) 10% bolus 250 mL, [...] PC, Vanita Ware NP, 8 Units at 01/25/24 1236 levothyroxine (SYNTHROID) tablet 88 mcg, 88 mcg, [...] bariatric equipment DM2 (diabetes mellitus, type 2) ([facility]) Assessment & Plan - Hemoglobin A1c 5.9 [...] 1,000 mg, 1,000 mg, feeding tube, Q6H [facility], Cinthia Stokes PA, 1,000 mg at 01/24/24 0527 aspirin enteric coated tablet 81 mg, 81 mg, oral, Daily, Cinthia Stokes PA, 81 mg at 01/24/24 0851 atorvastatin (LIPITOR) tablet 40 mg, 40 mg, feeding tube, Daily, Cinthia Stokes PA, 40 mgat 01/24/24 0851 chlorhexidine (PERIDEX) 0.12 % solution 15 mL, 15 mL, mouth/throat, TID, Cinthia Stokes PA, 15 mL at 01/24/24 08 clopidogreL (PLAVIX) tablet 75 mg, 75 mg, [...] subcutaneous, Nightly,Jennyfer Gaffney MD, 32 Units at 01/23/242043 insulin lispro (HumaLOG, ADMELOG) 100 unit/mL injection 0-10 Units, 0-10 Units, subcutaneous, TID with meals, Yojana Macdonald, JAMES, 4 Units at 01/23/24 1321 insulin lispro (HumaLOG, ADMELOG) 100 unit/mL injection 0-5 Units, 0-5 Units, subcutaneous, Nightly, Yojana Macdonald, JAMES, 3 Units at 01/23/242043 insulin lispro (HumaLOG, ADMELOG) 100 unit/mL injection 8 Units, 8 Units, subcutaneous, TID PC, Vanita Ware NP, 8 Units at 01/24/24 1232 levothyroxine (SYNTHROID) tablet 88 mcg, 88 mcg, feeding tube, Daily - 0600, Cinthia Stokes PA, 88 mcg at 01/24/24 0527 lidocaine (ASPERCREME) 4 % patch 2 patch, 2 patch, transdermal, Q24H, Aba Johnson, JAMES metoprolol tartrate (LOPRESSOR) immediate release tablet 12.5 mg, 12.5 mg, oral, BID, Andres Garces, JAMES ondansetron (ZOFRAN) injection 4 mg, 4 mg, [...] mg, 250 mg, oral, TID with meals, Guicho Bri MchughJAMES Martinez, 250 mg at 01/24/24 1232 Vitals: 24hr [...] caloric restriction DM2 (diabetes mellitus, type 2) ([facility]) Assessment & Plan - Hemoglobin A1c 5.9 [...] treatment team and contact the PT or MARKET RESEARCH INTERN currently assigned to this patient. If a physical therapy clinician is not assigned to this patient, please call [phone]. 01/24/24 1001 PT Last Visit Session Type Treatment PT Received On 01/24/24 Safe Environment Arm band checked;Patient found sitting in chair;Session completed bedside;Gait belt not utilized, see comment (2/ sternal incision) Subjective Agreeable to Therapy Family/Caregiver [...] independence with functional mobility. * Nii Garces, EAR FLAP BINDER - 01/23/2024 4:46 PM CDT Cardiac Surgery [...] subcutaneous, Nightly,Jennyfer Gaffney MD, 32 Units at 01/22/24 2112 insulin lispro (HumaLOG, ADMELOG) 100 unit/mL injection 0-10 Units, 0-10 Units, subcutaneous, TID with meals, Yojana Macdonald NP, 4 Units at 01/23/24 1321 insulin lispro (HumaLOG, ADMELOG) 100 unit/mL injection 0-5 Units, 0-5 Units, subcutaneous, Nightly, Yojana Macdonald NP, 1 Units at 01/22/24 211 insulin lispro (HumaLOG, ADMELOG) 100 unit/mL injection [...] not assigned to this patient, please call [phone]. 01/23/24 0910 General Session Type Treatment OT [...] 1,000 mg, 1,000 mg, feeding tube, Q6H [facility], Cinthia Stokes PA, 1,000 mg at 01/22/24 [...] subcutaneous, Nightly,Jennyfer Gaffney MD, 32 Units at 01/21/242045 insulin [...] 6.25 mg, 6.25 mg, oral, BID, Nii Garces, JAMES, 6.25 mg at 01/22/24 1042 ondansetron (ZOFRAN) injection 4 mg, 4 mg, intravenous, Q6H PRN, Cinthia Stokes PA, 4 mg at 01/22/24 1519 oxyCODONE (ROXICODONE) tablet 5 mg, 5 mg, oral, Q4H PRN, Stan Treviño MD, 5 mg at 01/22/24 1519 polyethylene [...] Nii Garces NP 01/22/2024 Cosigned by Stan Treviño MD at 02/02/2024 6:24 PM CDT * [...] treatment team and contact the PT or MARKET RESEARCH INTERN currently assigned to this patient. If a physical therapy clinician is not assigned to this patient, please call [phone]. Multi-Disciplinary Problems (from Physical Therapy) Active Problems [...] better Prior Function Prior Function Level of [place]: Independent with ADLs, Independent functional transfers, Independent [...] independence with functional mobility. * Jose Antonio Aguilera, OT - 01/21/2024 8:00 AM CDT Occupational [...] not assigned to this patient, please call [phone]. 01/21/24 0800 General Chart Reviewed Yes Session [...] using SPC intermittently Prior Function Level of [place] Independent with ADLs;Independent functional transfers;Independent with ambulation;Independent with homemaking with ambulation Lives With Son Receives Help From Family (Son time motion analyst but is limited on how much physical [...] present Cognitive Tests Cognitive Tests No (Got prison through the [facility] and patient declined completing [...] light within reach;Overbed table within reach (RN Pily Momin) Assessment Problem List Decreased safe judgment [...] Care Post-Procedure Diagnose(s): Coronary artery disease of [place] artery of [place] heart with stable angina pectoris (HCC) Surgical [...] 0.9%, 3-12 mL/hr, Last Rate: 3 mL/hr (01/21/24 06) PRN Meds:. dextrose OR dextrose glucagon HYDROmorphone [...] Goals of Care: Full Code MILES Lockett, PAPilyC Critical Care Performed by: Cinthia Stokes PA [...] plan with the ICU team and other medical/mainframe consultant staff, making frequent assessments and decisions [...] at 02/02/2024 12:52 PM CDT * Yisel Quintero NP - 01/20/2024 7:09 PM CDTAssociated Order(s): Critical Care Post-Procedure Diagnose(s): Coronary artery disease of [place] artery of [place] heart with stable angina pectoris (HCC) Surgical ICU Daily Progress Team: 8200 Blue 2 PM Subjective Isabelle Lutz is a 73 y.o. female admitted on 01/20/2024 6:04 AM with chief complaint of CAD. PMH: CAD, PVD, CKD, HTN, HLD, T2DM (insulin dependent) Abbreviated Hospital Course: 01/19: s/p CABG x3, admitted to 8200 intubated, on dobutamine. Extubated overnight. Interval History: - Extubated to UT ~2130 - Dobutamine continued at 2.5, per CTS - Potassium, phosphorus, magnesium, calcium repleted Objective Physical Exam: General: Intubated/sedated Neuro: Rousable to voice, follows commands, ANDERSON, PERRL Cardiac: S1 and S2, Regular Rate and Rhythm, no M/G/R Pulmonary: Lungs diminished to auscultation, respirations even, intubated on mechanical ventilation Abdominal: Soft/Nontender/Nondistended, obese, normoactive bowel sounds Extremities: No edema, Pulses Present and Palpable Drains: KIRSTIE Bright x2 (BL thigh), prevena to sternal surgical [...] a-line (01/19), R axillary a-line (01/19), RIJ [place] (01/19), PIV x2 Goals of care: Full [...] plan with the ICU team and other medical/mainframe consultant staff, making frequent assessments and decisions [...] CATARACT EXTRACTION Right 06/14/2022 CE/IOL + goniotomy NV APPENDECTOMY unkown dates per pt NV DELIVERY ONLY Section - in 1972 and 1975 (Added by TW Conv) NV TENDON SHEATH INCISION Hand Incision Tendon Sheath [...] AM Result Value Ref Range Product code Z5103H44 Unit Number [id number] Product Blood Type APOS Dispense Status RETURNED Product code L9763Q19 Unit Number [id number] Product Blood Type APOS Dispense Status RETURNED Product code I3105Y79 Unit Number [id number] Product Blood Type APOS Dispense Status RETURNED Product code F4938Q44 Unit Number [id number] Product Blood Type APOS Dispense Status RETURNED [...] AM Result Value Ref Range Product code X5493R61 Unit Number [id number] Product Blood Type APOS Dispense Status RETURNED Product code Q0082Z25 Unit Number [id number] Product Blood Type APOS Dispense Status RETURNED Product code O2831H69 Unit Number [id number] Product Blood Type APOS Dispense Status RETURNED Product code K9560M53 Unit Number [id number] Product Blood Type APOS Dispense Status RETURNED [...] Goals of Care: Full Code MILES Lockett, GERARDOC Critical Care Performed by: Cinthia Stokes PA [...] plan with the ICU team and other medical/mainframe consultant staff, making frequent assessments and decisions [...] and Planning Preoperative Evaluation Record Evaluation type/location: [facility] Planned procedure site: [facility] (Pods 2//[facility]) Date: 01/17/24 Anesthesia Evaluation Isabelle Lutz is a 73 y.o. female 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 x3 AGOSTO VEIN (Chest) 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 (Thigh) Pre-Op Diagnosis Codes: * Coronary artery disease, unspecified vessel or lesion type, unspecified whether angina present, unspecified whether [place] or transplanted heart [I25.10] HISTORY HPI 73 [...] Other arrhythmia (RBBB + LAFB) Pertinent negatives: [place] ; CABG ; systolic/diastolic dysfunction w/o CHF ; valve replacement; atrialfibrillation; pacemaker/ICD; PVD; DVT/PE; drug-eluting stent(s); bare metal stent(s) and unknown stent(s) type Comments: Dr. Kerns DARLIN 10/04/23. 11/2023 [facility]: Severe multivessel coronary disease with chronic total [...] Other + Diabetes mellitus (Dexom. Managed by waste specialist.) - Diabetes type 2. Outpatient insulin use:current. [...] neck. 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 Starts with SOB then the [...] neck. 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 Starts with SOB then the [...] artery disease 12/18/2023 Coronary artery disease involving [place] heart 12/12/2023 Encounter for preprocedural cardiovascular examination 12/12/2023 ROSE (dyspnea on exertion) 11/19/2023 Stable angina (HCC) 11/16/2023 Hyperphosphatemia 11/15/2023 Abnormal stress echocardiogram 11/15/2023 Congestive heart failure (CMS/HCC) (HCC) 11/12/2023 Age-related osteoporosis without current pathological fracture 04/29/2023 Chronic kidney disease (CKD) stage G3b/A1, moderately decreased glomerular filtration rate (GFR) between 30-44 mL/min/1.73 square meter and albuminuria creatinine ratio less than 30 mg/g (HCC) 12/25/2021 Vitamin D deficiency 04/01/2019 Clavicle enlargement [...] CATARACT EXTRACTION Right 06/14/2022 CE/IOL + goniotomy NV APPENDECTOMY unkown dates per pt NV DELIVERY ONLY Section - in 1972 and 1975 (Added by TW Conv) NV TENDON SHEATH INCISION Hand Incision Tendon Sheath Of A Finger - right hand, III finger, 4/10 (Added by TW Conv) OB History No [...] mg enteric coated tablet 01/17/2024 -- -- ProviderAldair MD atorvastatin (LIPITOR) 40 mg tablet 01/17/2024 [...] x 5/32 needle -- 12/03/22 -- Merna eBll MD Use 4X daily semaglutide (OZEMPIC) 2 [...] ECG Comments: Synus Rhythm Echocardiogram(s): Stress Echo [facility] - 11/15/23 Ejection Fraction: 45-50% LV Global [...] No MS/ mild MR; No TR; No NV. Diastolic Function: Grade I (impaired relaxation) with nl est filling pressures.Unable to estimate PASP d/t inadequate TR jet. Stress test(s): N/A Cardiac catheterization(s): [facility] - 11/25/23 DIAGNOSTIC IMPRESSION: Severe multivessel [...] REMOVAL 01/23/2024 4:44 PM Performed by: Nii Garces NP Dicussed with: [] Collaborating MD/Deanee [x] Attending MD [] Supervising Physician [] Emergent [] Non-Applicable Informed consent: Risks, benefits, alternatives discussed and patient/graphic art sales representative/guardian agrees and accepts. Patient's stated name/ [...] Maneuver [x] Sutures secured immediately after removal []Austin sutures removed [] No sutures present Instruction [...] Nii Garces NP Dicussed with: [] Collaborating MD/Deanee [x] Attending MD [] Supervising Physician [] Emergent [] Non-Applicable Informed consent: Risks, benefits, alternatives discussed and patient/graphic art sales representative/guardian agrees and accepts. Patient's stated name/ [...] [] Sutures secured immediately after removal [] Austin sutures removed [] No sutures present Instruction [...] Lutz, 73 y.o. female (: 1950) Room: [place] [address] ( ) LOS: 2 Consult Question: diabetes [...] reliability: CKD, anemia Managed by PMD or Wood Experimental Mechanic Dr. Bell Hx of DKA/HHS/Hospitalizations for hypoglycemia: [...] fracture 04/29/2023 Cataract CHF (congestive heart failure) ([facility]/HCC) ([facility]) Clavicle enlargement 06/16/2018 Will image to determine etiology. Coronary artery disease Coronary artery disease due to calcified coronary lesion 01/20/2024 Diabetes mellitus (HCC) Diabetic neuropathy ([facility]) 01/21/2024 Diabetic retinopathy ([facility]) Glaucoma Hypertension Hypothyroidism 11/13/2014 Knee pain 01/04/2015 Multiparity History Of ___ Previous Pregnancies - 7 pregnancies, 2 children - C-sections. (Added by TW Conv) Nonproliferative diabetic retinopathy ([facility]) 11/03/2009 Osteoarthritis of knee 12/16/2007 Personal history [...] CATARACT EXTRACTION Right 06/14/2022 CE/IOL + goniotomy NV APPENDECTOMY unkown dates per pt NV DELIVERY ONLY Section - in 1972 and 1975 (Added by TW Conv) NV TENDON SHEATH INCISION Hand Incision Tendon Sheath [...] & Lipid Research Contact Info: New Consults: [phone]) General Endocrine (Non-Diabetes): [phone] (Check 'Treatment Team' assignment for Diabetes 1 vs 2 vs 3) Diabetes 1: Diabetes Fellow: [phone] Diabetes 2: Vanita Ware, EAR FLAP BINDER: [phone] Diabetes 3: See Treatment Team Provider (or [...] Lutz, 73 y.o. female (: 1950) Room: [id number] ( ) LOS: 1 Consult Question: [...] reliability: CKD, anemia Managed by PMD or Wood Experimental Mechanic Dr. Bell Hx of DKA/HHS/Hospitalizations for hypoglycemia: [...] lesion 01/20/2024 Diabetes mellitus (HCC) Diabetic retinopathy ([facility]) Glaucoma Hypertension Hypothyroidism 11/13/2014 Knee pain 01/04/2015 [...] CATARACT EXTRACTION Right 06/14/2022 CE/IOL + goniotomy NV APPENDECTOMY unkown dates per pt NV DELIVERY ONLY Section - in 1972 and 1975 (Added by TW Conv) NV TENDON SHEATH INCISION Hand Incision Tendon Sheath Of A Finger - right hand, III finger, 08/20 (Added by [employer] Conv) Social & Family History Social History [...] & Lipid Research Contact Info: New Consults: [phone]) General Endocrine (Non-Diabetes): [phone] (Check 'Treatment Team' assignment for Diabetes 1 vs 2 vs 3) Diabetes 1: Diabetes Fellow: [phone] Diabetes 2: Vanita Ware, EAR FLAP BINDER: [phone] Diabetes 3: See Treatment Team Provider (or [...] PM CDT Report called to Tracy at [facility]. PIVs and tele removed. Discharge packet and education reviewed with patient and family at bedside. All questions answered. Patient ready for discharge. documented in this encounter Miscellaneous Notes * Consults, Subsequent - Vanita Ware NP - 01/28/2024 12:35 PM CDT Endocrinology & Diabetes Inpatient Subsequent Consult Note Patient: Isabelle Lutz, 73 y.o. female (: 1950) Room: [place] [address] ( ) LOS: 8 Isabelle Lutz is [...] yearly or sooner as indicated by your capital equipment specialist Pending results for primary service or primary care physician to follow up on: None at time of discharge Follow Up Plan: [facility] Endocrinology Appointment date: Follow up with Dr. Bell on 03/02/24 at 11:40 AM as scheduled Location: [facility]: [address] [place] [address],[address], [place] [address] Endocrinology clinic number: [phone] -- Vanita Ware NP Endocrinology, Metabolism, & Lipid Research Contact Info: New Endocrinology Diabetes Consults: [phone] General Endocrine (Non-Diabetes): [phone] Treatment Teams: [facility] Endocrinology Diabetes 1: Fellow + Attending [facility] Endocrinology Diabetes 2: Vanita Ware NP at [phone] [facility] Endocrinology Diabetes 3: Marcia Irvin NP at [phone] [facility] Endocrinology Diabetes 4: Jacki Patel NP (/) at [phone] or Leeanne Lincoln NP (//) at [phone] Diabetes After-Hours & Weekends: Diabetes Fellow [phone] or [phone] * Plan of Care - Katharine Finney [...] planning, remain free from falls and injury Custodial Patient Centered Goal for Treatment: safe discharge [...] type, unspecified whether angina present, unspecified whether [place] or transplanted heart [I25.10] Coronary artery disease [...] yearly or sooner as indicated by your capital equipment specialist Pending results for primary service or primary care physician to follow up on: None at time of discharge Follow Up Plan: [facility] Endocrinology Appointment date: Follow up with Dr. Bell on 03/02/24 at 11:40 AM as scheduled Location: [facility]: [address] [place] [address],[address] Floor, [place] [address] Endocrinology clinic number: [phone] * Plan of Care - Carmita Eden RN - 01/27/2024 10:23 PM CDT Goals: Clinical Goals for the Shift: hemodynamically stable, promote comfort and sleep, labs will trend toward normal values, pt will not fall Custodial Patient Centered Goal for Treatment: safe discharge [...] managment, remain free from falls and injury Timber Repairer Patient Centered Goal for Treatment: safe discharge to home Summary: VSS, pain management plan followed, pt remained free from falls and injury. * Consults, Subsequent - Vanita Ware NP - 01/27/2024 12:32 PM CDT Endocrinology & Diabetes Inpatient Subsequent Consult Note Patient: Isabelle Lutz, 73 y.o. female (: 1950) Room: [place] [address] ( ) LOS: 7 Isabelle Lutz is [...] glucose of 201 mg/dl (glucose checked at 1951, insulin not administered until 2145. In the interim, blood glucose with chemistry was 138 mg/dl at 2119). Target inpatient blood glucose is 100-200 mg/dl Recent Labs Lab Units 01/27/24 1120 01/27/24 0851 01/27/24 0729 01/27/24 0313 01/27/24 0214 01/27/24 0139 01/27/24 0119 01/27/24 0100 01/26/24211901/26/241950 GLUCOSE mg/dL -- -- -- -- -- [...] Research Contact Info: New Endocrinology Diabetes Consults: [phone] General Endocrine (Non-Diabetes): [phone] Treatment Teams: [facility] Endocrinology Diabetes 1: Fellow + Attending [facility] Endocrinology Diabetes 2: Vanita Ware NP at [phone] [facility] Endocrinology Diabetes 3: Marcia Irvin NP at [phone] [facility] Endocrinology Diabetes 4: Jacki Patel NP (/) at [phone] or Leeanne Lincoln NP (//) at [phone] Diabetes After-Hours & Weekends: Diabetes Fellow [phone] or [phone] * Plan of Care - Carmita Eden RN - 01/26/2024 10:48 PM CDT Problem: Respiratory Goal: Achieves optimal ventilation and oxygenation Flowsheets (Taken 01/26/2024 8375) Achieves optimal ventilation and oxygenation: Assess for [...] maintained within normal limits Flowsheets (Taken 01/26/2024 012) Electrolytes maintained within normal limits: Monitor labs and assess patient for signs and symptoms of electrolyte imbalances Administer electrolyte replacement as ordered Monitor response to electrolyte replacements, including repeat lab results as appropriate Fluid restriction as ordered Instruct patient on fluid and nutrition restrictions as appropriate Provide fluid volume management Goal: Hemodynamic stability and optimal renal function maintained Flowsheets (Taken 01/26/2024 012) Hemodynamic stability and optimal renal function maintained: [...] maintained within prescribed range Flowsheets (Taken 01/26/2024 012) Glucose maintained within prescribed range: Assess for [...] toward normal values, pt will not fall Timber Repairer Patient Centered Goal for Treatment: safe discharge [...] Lutz, 73 y.o. female (: 1950) Room: [place] [address] [address] ( ) LOS: 6 Isabelle Lutz is [...] reliability: CKD, anemia Managed by PMD or Wood Experimental Mechanic Dr. Bell Hx of DKA/HHS/Hospitalizations for hypoglycemia: [...] labs, imaging, and diagnostics independently reviewed in [facility] and commented on below. Lab Results Component [...] toward normal values, pt will not fall Timber Repairer Patient Centered Goal for Treatment: safe discharge [...] free from falls Outcome: Progressing Flowsheets (Taken 01/26/2024126) Will remain free from falls: Assess risk factors for falls Implement fall prevention measures Collaborate with other disciplines Goal: Will remain free from injury from falls Outcome: Progressing Flowsheets (Taken 01/26/2024126) Will remain free from injury from falls: [...] Lutz, 73 y.o. female (: 1950) Room: [place] [address] ( ) LOS: 5 Isabelle Lutz is [...] Units 01/25/24 1110 01/25/24 0828 01/25/24 0202 01/24/24 2013 01/24/24 1927 01/24/24 1626 01/24/24 1227 01/24/24 0732 [...] reliability: CKD, anemia Managed by PMD or Wood Experimental Mechanic Dr. Bell Hx of DKA/HHS/Hospitalizations for hypoglycemia: [...] comfort and safety, monitor labs, sleep hygiene Custodial Patient Centered Goal for Treatment: Return to home Summary: VSS, comfort and safety maintained, labs monitored. * [facility] 01/24/2024 4:36 PM CDT Problem: [...] Associated Problem(s): DM2 (diabetes mellitus, type 2) ([facility]) - Hemoglobin A1c 5.9 % on admission [...] Lutz, 73 y.o. female (: 1950) Room: [place] [address] [address] ( ) LOS: 4 Isabelle Lutz is [...] at 11:40 AM as scheduled -- Leeanne Lincoln NP Endocrinology, Metabolism, & Lipid Research Contact Info: New Endocrinology Diabetes Consults: [phone] General Endocrine (Non-Diabetes): [phone] Treatment Teams: [facility] Endocrinology Diabetes 1: Fellow + Attending [facility] Endocrinology Diabetes 2: Vanita Ware NP at [phone] [facility] Endocrinology Diabetes 3: Marcia Irvin NP at [phone] [facility] Endocrinology Diabetes 4: Jacki Patel NP (M/) at [phone] or Leeanne Lincoln NP (//) at [phone] Diabetes After-Hours & Weekends: Diabetes Fellow [phone] or [phone] * Plan of Tangela - Sonia Pineda RN - 01/24/2024 3:31 [...] control, bs management, maintain comfort and safety Timber Repairer Patient Centered Goal for Treatment: Return to home Summary: VSS, had multiple BMs, pain controlled with current regimen. * Plan of Eduard Hoffmann - 01/23/2024 6:18 PM CDT Goals: Clinical Goals for the Shift: VSS, pain control, safety throughout shift Timber Repairer Patient Centered Goal for Treatment: Return to [...] was found to have multivessel diease on [facility] and is being seenby CTS for [...] Lutz, 73 y.o. female (: 1950) Room: [place] [id number] ( ) LOS: 3 Isabelle Lutz is a 73 y.o. female with PMH significant for hypothyroidism, osteoporosis, CAD, PVD, CKD, HTN, HLD and T2DM who presented to the hospital for planned CABG (now s/p 3 vessel CABG, [place], 01/20/24). The Endocrinology/Diabetes Service is being consulted [...] planned CABG (now s/p 3 vessel CABG, [place], 01/20/24). # Type 2 Diabetes Mellitus, Controlled, [...] Research Contact Info: New Endocrinology Diabetes Consults: [phone] General Endocrine (Non-Diabetes): [phone] Treatment Teams: [facility] Endocrinology Diabetes 1: Fellow + Attending [facility] Endocrinology Diabetes 2: Vanita Ware NP at [phone] [facility] Endocrinology Diabetes 3: Marcia Irvin NP at [phone] [facility] Endocrinology Diabetes 4: Jacki Patel NP (/) at [phone] or Leeanne Lincoln NP (//) at [phone] Diabetes After-Hours & Weekends: Diabetes Fellow [phone] or [phone] * Plan of Care - Eduard Berger - 01/22/2024 5:28 PM CDT Goals: Clinical Goals for the Shift: VSS, Pain Control, Free from falls and injury, have tubes and wires removed when possible. Timber Repairer Patient Centered Goal for Treatment: D/c home [...] Limon RN - 01/22/2024 1:16 PM CDT ALEXANDRA Initial Assessment Interview Note Information Obtained From: [...] is interested in IRF - discussed choices. Tire Specialist noted patient has been recommended for Inpatient Rehab by PT/OT. Tire Specialist proactively initiated a referral to [facility] preferred Inpatient Rehab Facility - [facility]. Tire Specialist met with the patient/family at bedside to discuss recommendations by therapy and to work on a potential discharge disposition plan. Tire Specialist provided education to patient/family on the rehabilitation process. Patient reported he/she was interested in placement for rehabilitation. fuel manager provided a list of additional potential Inpatient Rehab Facility choices to patient and family. Patient and family selected the following choices (preference order): [facility] location fuel manager sent out additional referrals via [facility]. CM awaiting acceptance from an Inpatient RehabFacility and will continue to work on discharge planning with patient and family. Primary Source of Transportation: Does the patient need discharge transport arranged?: Yes (to be determined EMS vs Family) Has discharge transport been arranged?: No (01/22/241311) Health Insurance Coverage: Medicare [facility] Federal Prescription Coverage: yes Pharmacy: [facility] Pharmacy - LYNNE Clark - [facility] AT Portal to Registered [facility] Sites [facility] [place] [id number] [facility]/pharmacy #[id number] [place] [address] - [address] [place] [address] Primary Care Provider: Elpidio Serrato MD Prior [...] expects to be Discharged to: Acute Rehab, (01/22/241311) Additional Information: CM met with patient at [...] Collaboration with Patient, Provider, Direct Care Nurse, Track Watchman, and other members of theHealth Care Team to assure needed interventions completed. 2. Return patient to optimal level of self-care post discharge. 3. Tire Specialist will follow for Discharge Planning - interventions as needed 4. Anticipated level of care at discharge 5. Planned Discharge Disposition Christy Limon RN * Plan of Care - Luis Dos Santos RN - 01/22/2024 6:46 AM CDT Goals: Clinical Goals for the Shift: VSS, Pain Control, Free from falls and injury, have tubes and wires removed when possible. Custodial Patient Centered Goal for Treatment: D/c home [...] from falls Outcome: Progressing * Plan of Tangela - Rose Marie Crabtree RN - 01/21/2024 [...] Admit Date: 01/20/2024 SURGEON Stan Treviño MD AUTOMOBILE RADIO REPAIRER Jeff Alaniz MD ANESTHESIA Diogo Smith MD [...] the ICU in stable but critical condition. I, Stan Treviño, scrubbed and performed all the procedures for [...] MD - Fellow Anesthesiologist: Diogo Smith MD Aerial Planting And Cultivation Manager: Chandrakant Saba MD Electronic Die Maker: Gerald Guzman CCP; Jason Kapoor CCP Lead Systems Architect: Ben Hi Lead Systems Architect Relief: Glenna Lambert RN Scrub Relief: Glenna Lambert RN; Germaine Watt ST Scrub: Emmie Ware RN FORMING MACHINE OPERATOR: Rachelle Rivas RN; Gloria Gannon CRNFA DATE OF SURGERY : 01/20/2024 Preoperative Diagnosis: Pre-op Diagnosis * Coronary artery disease, unspecified vessel or lesion type, unspecified whether angina present, unspecified whether [place] or transplanted heart [I25.10] Postoperative Diagnosis: Post-op Diagnosis * Coronary artery disease, unspecified vessel or lesion type, unspecified whether angina present, unspecified whether [place] or transplanted heart [I25.10] Procedure(s): Procedure(s) (LRB): [...] Implant Name Type Inv. Item Serial No. Finger Cobbler Lot No. LRB No. Used Action [employer] Suture [place] Cor Knot Pre Loaded Fastener Device Micro Titanium 0 67428 - S0 - [id number] [employer] Suture [place] [employer] Knot Pre Loaded Fastener Device Micro Titanium 0 27176 0 Circlefive [id number] N/A 1 Implanted [employer] Suture [place] Cor Knot Pre Loaded Fastener Device Micro Titanium 0 42181 - S0 - [id number] [employer] Suture [place] Cor Knot Pre Loaded Fastener Device Micro Titanium 0 71033 0 Circlefive [id number] N/A 1 Implanted [employer] Suture [place] Cor Knot Pre Loaded Fastener Device Micro Titanium 0 48366 - S0 - [id number] [employer] Suture [place] Cor Knot Pre Loaded Fastener Device Micro Titanium 0 54770 0 Circlefive [id number] N/A 1 Implanted [employer] Suture [place] Cor Knot Pre Loaded Fastener Device Micro Titanium 0 31831 - S0 - [id number] [employer] Suture [place] Cor Knot Pre Loaded Fastener Device Micro Titanium 0 25761 0 Circlefive [id number] N/A 1 Implanted ATRICURE Device Left Atrial Appendage Malleable Shaft 180 Degree Rotation White Atriclip Flex V 40mm Flexv40 [id number] - [id number] ATRICURE Device Left Atrial Appendage Malleable Shaft 180 Degree Rotation White Atriclip Flex V 40mm Flexv40 ACHV40 Atricure [id number] N/A 1 Implanted [employer] SternaLock 360 Sternal Closure 74-0004 - [id number] [employer] [id number] Sternal Closure 74-0004 [employer] [id number] N/A 1 Implanted [employer] Sternalock Hernan 2.4mm 14mm Self Drill Lock Sternum Cancellous 73-2414 - [id number] [employer] Sternalock Hernan 2.4mm 14mm Self Drill Lock Sternum Cancellous 73-2414 [employer] N/A 12 Implanted [employer] Sternalock Hernan 2.4mm 16mm Self Drill Lock Sternum Cancellous 73-2416 - [id number] [employer] Sternalock Hernan 2.4mm 16mm [...] Treviño to screen patient for inclusion into [facility] # [id number]: LeAAPS Trial The patient meets all inclusion [...] PM CDT POCT GLUCOSE DEVICE Routine 01/25/2024 9:39 PM CDT POCT GLUCOSE DEVICE Routine 01/25/2024 [...] 6:00 AM CDT Coronary artery disease of [place] artery of [place] heart with stable angina pectoris (HCC) POCT [...] 7:09 PM CDT Coronary artery disease of [place] artery of [place] heart with stable angina pectoris (HCC) POCT [...] type, unspecified whether angina present, unspecified whether [place] or transplanted heart ISOLATION LEFT ATRIAL APPENDAGE 01/20/2024 8:04 AM CDT Coronary artery disease, unspecified vessel or lesion type, unspecified whether angina present, unspecified whether [place] or transplanted heart 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 01/20/2024 8:04 AM CDT Coronary artery disease, unspecified vessel or lesion type, unspecified whether angina present, unspecified whether [place] or transplanted heart 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 01/20/2024 8:04 AM CDT Coronary artery disease, unspecified vessel or lesion type, unspecified whether angina present, unspecified whether [place] or transplanted heart POCT GLUCOSE DEVICE Routine 01/20/2024 6 :55 AM CDT PREPARE RBC Timed 01/20/2024 6:24 AM CDT documented in this encounter Results * POCT glucose (01/28/2024 12:00 PM CDT) Glucose, POC 179 70 - 199 mg/dL Blood 01/28/2024 12:0 0 PM CDT 01/28/2024 12:00 PM CDT Stan Treviño MD LAB POCT ORDERABLES - DEVICE Final Result Performing Organization Address City/[facility] Co de Phone Number [facility] [address] [place] [address] * POCT glucose (01/28/2024 10:38 AM CDT) Glucose, POC 179 70 - 199 mg/dL Blood 01/28/2024 10:3 8 AM CDT 01/28/2024 10:38 AM CDT Stan Treviño MD LAB POCT ORDERABLES - DEVICE Final Result Performing Organization Address [facility] Co de Phone Number [facility] [address] [place] [address] * POCT glucose (01/28/2024 7:52 AM CDT) Glucose, POC 106 70 - 199 mg/dL Blood 01/28/2024 7:52 AM CDT 01/28/2024 7:52 AM CDT Stan Treviño MD LAB POCT ORDERABLES - DEVICE Final Result Performing Organization Address City/[facility] Co de Phone Number [facility] [address] [place] [address] * ECG 12 lead (01/28/2024 4:12 AM CDT) Ventricular Rate EKG/Min 66 BPM [facility] Atrial Rate 66 BPM [facility] NV-Interval (MSEC) 142 ms [facility] QRS-Interval (MSEC) 124 ms [facility] QT-Interval (MSEC) 470 ms [facility] QTc 492 ms [facility] P [place] 52 degrees [facility] R [place] -61 degrees [facility] T [place] 39 degrees [facility] Diagnosis Normal sinus rhythm Right bundle branch block Left anterior fascicular block Bifascicular block Possible Lateral infarct , age undetermined Abnormal ECG When compared with ECG of 27-JAN-2024 05:05, Borderline criteria for Lateral infarct are now Present Confirmed by MAHI RACHEL M.D ([id number]) on 01/28/2024 11:47:23 AM [facility] 01/28/2024 4:12 AM CDT 01/28/2024 11:47 AM CDT us Marisela Russell EAR FLAP BINDER ECG ORDERABLES Final Res ult Performing Organization Address City/[facility]/ZIP Co de Phone Number [facility] * POCT glucose (01/28/2024 1:18 AM CDT) Glucose, POC 119 70 - 199 mg/dL Blood 01/28/2024 1:18 AM CDT 01/28/2024 1:18 AM CDT Stan Treviño MD LAB POCT ORDERABLES - DEVICE Final Result Performing Organization Address [facility] Co de Phone Number [facility] Department [place] [address] * (ABNORMAL) eGFR (01/27/2024 9:03 PM CDT) [...] NP LAB BLOOD ORDERABLES Final R esult [facility] Department [place] [address] * (ABNORMAL) CBC without differential (01/27/2024 9:03 PM CDT) WBC 7.6 3.8 - 9.9 K/cumm Hgb 7.9(L) 11.9 - 15.5 g/dL [facility] Hct 24.4(L) 35.6 - 45.5 % [facility] Plt 230 150 - 400 K/cumm [facility] MPV 11.0 9.1 - 12.3 fL [facility] RBC 2.69(L) 3.90 - 5.20 M/cumm [facility] MCV 90.7 81.3 - 96.4 fL [facility] MCH 29.4 27.1 - 33.3 pg [facility] MCHC 32.4 32.3 - 35.7 g/dL [facility] RDW CV 14.2 11.1 - 14.9 % [facility] RDW SD 45.8 35.7 - 48.1 fL [facility] NRBC abs 0.00 0.00 - 0.01 K/cumm [facility] Blood 01/27/2024 9:03 PM CDT 01/27/2024 9:35 PM CDT us Nii Garces NP LAB BLOOD ORDERABLES Final R esult [facility] Department [place] [address] * (ABNORMAL) Basic metabolic panel (01/27/2024 9:03 PM CDT) Sodium 138 135 - 145 mmol/L Potassium, pl 4.4 3.3 - 4.9 mmol/L [facility] Chloride 104 97 - 110 mmol/L [facility] CO2 25 22 - 32 mmol/L [facility] Anion gap 9 2 - 15 mmol/L [facility] BUN 29(H) 6 - 25 mg/dL [facility] Creatinine 1.40(H) 0.60 - 1.10 mg/dL [facility] Glucose 165 70 - 199 mg/dL [facility] Comment: Interpretive Data Fasting glucose [...] 2022. Calcium 8.5 8.5 - 10.3 mg/dL [facility] Blood 01/27/2024 9:03 PM CDT 01/27/2024 9:35 PM CDT Nii Garces NP LAB BLOOD ORDERABLES Final R esult Performing Organization Address [facility] Co de Phone Number [facility] [place] [address] * Phosphorus (01/27/2024 9:03 PM CDT) Phosphorus, pl 3.6 2.3 - 4.5 mg/dL Blood 01/27/2024 9:03 PM CDT 01/27/2024 9:35 PM CDT Nii Garces NP LAB BLOOD ORDERABLES Final R esult Performing Organization Address [facility] de Phone Number [facility] [place] [address] * Magnesium (01/27/2024 9:03 PM CDT) Magnesium 2.0 1.4 - 2.5 mg/dL Blood 01/27/2024 9:03 PM CDT 01/27/2024 9:35 PM CDT Nii Garces NP LAB BLOOD ORDERABLES Final R esult Performing Organization Address [facility] de Phone Number [facility] [place] [address] [place] [address] * (ABNORMAL) POCT glucose (01/27/2024 7:33 PM CDT) Glucose, POC 226(H) 70 - 199 mg/dL Blood 01/27/2024 7:33 PM CDT 01/27/2024 7:33 PM CDT Stan Treviño MD LAB POCT ORDERABLES - DEVICE Final Result Performing Organization Address [facility] Co de Phone Number [facility] [address] [place] [address] * POCT glucose (01/27/2024 4:55 PM CDT) Glucose, POC 163 70 - 199 mg/dL Blood 01/27/2024 4:55 PM CDT 01/27/2024 4:55 PM CDT Stan Treviño MD LAB POCT ORDERABLES - DEVICE Final Result Performing Organization Address [facility] [place] [address] * POCT glucose (01/27/2024 11:20 AM CDT) Glucose, POC 127 70 - 199 mg/dL Blood 01/27/2024 11:2 0 AM CDT 01/27/2024 11:20 AM CDT Stan Treviño MD LAB POCT ORDERABLES - DEVICE Final Result Performing Organization Address [facility] [facility] Co de Phone Number [facility] [address] [address] * POCT glucose (01/27/2024 8:51 AM CDT) Glucose, POC 106 70 - 199 mg/dL Blood 01/27/2024 8:51 AM CDT 01/27/2024 8:51 AM CDT us Stan Treviño MD LAB POCT ORDERABLES - DEVICE Final Result Performing Organization Address [facility] Co de Phone Number [facility] [place] [address] * POCT glucose (01/27/2024 7:29 AM CDT) Glucose, POC 107 70 - 199 mg/dL Blood 01/27/2024 7:29 AM CDT 01/27/2024 7:29 AM CDT Stan Treviño MD LAB POCT ORDERABLES - DEVICE Final Result Performing Organization Address City/[facility]/ZIP Co de Phone Number [facility] Department [place] [address] * ECG 12 lead (01/27/2024 5:05 AM CDT) [facility] Ventricular Rate EKG/Min 80 BPM [facility] Atrial Rate 80 BPM [facility] NV-Interval (MSEC) 136 ms [facility] QRS-Interval (MSEC) 122 ms [facility] QT-Interval (MSEC) 426 ms [facility] QTc 491 ms [facility] P [place] 55 degrees [facility] R [place] -63 degrees [facility] T [place] 38 degrees [facility] Diagnosis Normal sinus rhythm with sinus arrhythmia Right bundle branch block Left anterior fascicular block Bifascicular block Abnormal ECG When compared with ECG of 26-JAN-2024 02:54, (unconfirmed) Premature ventricular complexes are no longer Present Confirmed by MAHI RACHEL M.D ([id number]) on 01/27/2024 12:23:55 PM [facility] 01/27/2024 5:05 AM CDT 01/27/2024 12:23 PM CDT us Marisela Russell EAR FLAP BINDER ECG ORDERABLES Final Res ult [facility] * POCT glucose (01/27/2024 3:13 AM CDT) Glucose, POC 123 70 - 199 mg/dL Blood 01/27/2024 3:13 AM CDT 01/27/2024 3:13 AM CDT us Stan Treviño MD LAB POCT ORDERABLES - DEVICE Final Result Performing Organization Address [facility] Co de Phone Number [facility] [address] [place] [address] * POCT glucose (01/27/2024 2:14 AM CDT) Glucose, POC 119 70 - 199 mg/dL Blood 01/27/2024 2:14 AM CDT 01/27/2024 2:14 AM CDT us Stan Treviño MD LAB POCT ORDERABLES - DEVICE Final Result Performing Organization Address [facility] [place] [address] * POCT glucose (01/27/2024 1:39 AM CDT) Glucose, POC 92 70 - 199 mg/dL Blood 01/27/2024 1:39 AM CDT 01/27/2024 1:39 AM CDT us Stan Treviño MD LAB POCT ORDERABLES - DEVICE Final Result Performing Organization Address [facility] Co de Phone Number [facility] Department [place] [address] [place] [address] * POCT glucose (01/27/2024 1:19 AM CDT) Glucose, POC 73 70 - 199 mg/dL Blood 01/27/2024 1:19 AM CDT 01/27/2024 1:19 AM CDT us Stan Treviño MD LAB POCT ORDERABLES - DEVICE Final Result Performing Organization Address [facility] Co de Phone Number [facility] Department [place] [address] * (ABNORMAL) POCT glucose (01/27/2024 1:00 AM CDT) Glucose, POC 58(L) 70 - 199 mg/dL Blood 01/27/2024 1:00 AM CDT 01/27/2024 1:00 AM CDT Stan Treviño MD LAB POCT ORDERABLES - DEVICE Final Result [facility] Department [place] [address] * (ABNORMAL) eGFR (01/26/2024 9:20 PM CDT) [...] CDT 01/26/2024 9:49 PM CDT Nii Garces EAR FLAP BINDER LAB BLOOD ORDERABLES Final R esult Performing Organization Address City/[facility]/ZIP Co de Phone Number [facility] [place] [address] * Type and screen (01/26/2024 9:20 PM CDT) Pathologist [facility] ABO Rh A Positive Sergio, indirect Negative [facility] Blood 01/26/2024 9:20 PM CDT 01/26/2024 9:55 PM CDT Narrative [facility] - 01/26/2024 10:57 PM CDT Has the patient had Daratumumab or Isatuximab in the past 6 months?->Unknown us Eloisa Freeman EAR FLAP BINDER LAB BLOOD BANK TEST ORDERABLES F inal Result Performing Organization Address [facility] Co de Phone Number [facility] [place] [address] * (ABNORMAL) CBC without differential (01/26/2024 9:20 PM CDT) [facility] WBC 8.2 3.8 - 9.9 K/cumm Hgb 8.0(L) 11.9 - 15.5 g/dL [facility] Hct 24.6(L) 35.6 - 45.5 % [facility] Plt 211 150 - 400 K/cumm [facility] MPV 11.0 9.1 - 12.3 fL [facility] RBC 2.73(L) 3.90 - 5.20 M/cumm [facility] MCV 90.1 81.3 - 96.4 fL [facility] MCH 29.3 27.1 - 33.3 pg [facility] MCHC 32.5 32.3 - 35.7 g/dL [facility] RDW CV 13.9 11.1 - 14.9 % [facility] RDW SD 45.2 35.7 - 48.1 fL [facility] NRBC abs 0.00 0.00 - 0.01 K/cumm [facility] Blood 01/26/2024 9:20 PM CDT 01/26/2024 9:49 PM CDT Nii Garces NP LAB BLOOD ORDERABLES Final R esult [facility] Department [place] [address] * (ABNORMAL) Basic metabolic panel (01/26/2024 9:20 PM CDT) Sodium 140 135 - 145 mmol/L Potassium, pl 4.6 3.3 - 4.9 mmol/L [facility] Chloride 105 97 - 110 mmol/L [facility] CO2 24 22 - 32 mmol/L [facility] Anion gap 11 2 - 15 mmol/L [facility] BUN 33(H) 6 - 25 mg/dL [facility] Creatinine 1.34(H) 0.60 - 1.10 mg/dL [facility] Glucose 138 70 - 199 mg/dL [facility] Comment: Interpretive Data Fasting glucose [...] 2022. Calcium 8.5 8.5 - 10.3 mg/dL [facility] Blood 01/26/2024 9:20 PM CDT 01/26/2024 9:49 PM CDT Nii Garces NP LAB BLOOD ORDERABLES Final R esult Performing Organization Address [facility] Co de Phone Number [facility] [address] [address] * Phosphorus (01/26/2024 9:20 PM CDT) Phosphorus, pl 3.5 2.3 - 4.5 mg/dL Blood 01/26/2024 9:20 PM CDT 01/26/2024 9:49 PM CDT us Nii Garces NP LAB BLOOD ORDERABLES Final R esult Performing Organization Address [facility] Co de Phone Number [facility] [address] [place] [address] * Magnesium (01/26/2024 9:20 PM CDT) Pathologist [facility] Magnesium 1.9 1.4 - 2.5 mg/dL Blood 01/26/2024 9:20 PM CDT 01/26/2024 9:49 PM CDT us Nii Garces NP LAB BLOOD ORDERABLES Final R esult Performing Organization Address [facility] Co de Phone Number [facility] [address] [address] * (ABNORMAL) POCT glucose (01/26/2024 7:51 PM CDT) Glucose, POC 201(H) 70 - 199 mg/dL Blood 01/26/2024 7:51 PM CDT 01/26/2024 7:51 PM CDT us Stan Treviño MD LAB POCT ORDERABLES - DEVICE Final Result Performing Organization Address City/[facility]/ZIP Co de Phone Number [facility] [address] [address] * (ABNORMAL) POCT glucose (01/26/2024 6:48 PM CDT) Glucose, POC 234(H) 70 - 199 mg/dL Blood 01/26/2024 6:48 PM CDT 01/26/2024 6:48 PM CDT Stan Treviño MD LAB POCT ORDERABLES - DEVICE Final Result Performing Organization Address [facility] Co de Phone Number [facility] [address] [place] [address] * POCT glucose (01/26/2024 5:42 PM CDT) Glucose, POC 95 70 - 199 mg/dL Blood 01/26/2024 5:42 PM CDT 01/26/2024 5:42 PM CDT Stan Treviño MD LAB POCT ORDERABLES - DEVICE Final Result Performing Organization Address [facility] de Phone Number [facility] [address] [place] [address] * (ABNORMAL) POCT glucose (01/26/2024 5:21 PM CDT) Glucose, POC 65(L) 70 - 199 mg/dL Blood 01/26/2024 5:21 PM CDT 01/26/2024 5:21 PM CDT Stan Treviño MD LAB POCT ORDERABLES - DEVICE Final Result Performing Organization Address [facility] [place] [address] * Infection Prevention Ema auris PCR, surveillance Axilla/Groin (01/26/2024 3:28 PM CDT) Ema auris DNA Not Detected Not Detected [facility] Comment: Interpretive Data Testing performed by [facility] using the Di[employer] Liaison MDX Ema auris assay. ??This assay detects DNA from Ema auris using Real-Time PCR. ??This assay is laboratory developed and is not cleared by the [place] Food and Drug Administration. ??The performance characteristics have been verified by the [facility]. Interpretive data was last reviewed on 09/04/2023 Axilla/Groin 01/26/2024 3:28 PM CDT 01/26/2024 4:31 PM CDT Jean Paul Platt MD LAB MICROBIOLOGY - GENERAL OR DERABLES Final Result Performing Organization Address City/[facility] Co de Phone Number [facility] Department [place] [address] [facility] * POCT glucose (01/26/2024 12:02 PM CDT) Glucose, POC 150 70 - 199 mg/dL Blood 01/26/2024 12:0 2 PM CDT 01/26/2024 12:02 PM CDT Stan Treviño MD LAB POCT ORDERABLES - DEVICE Final Result Performing Organization Address [facility] Co de Phone Number [facility] Department [place] [address] * POCT glucose (01/26/2024 8:18 AM CDT) Glucose, POC 94 70 - 199 mg/dL Blood 01/26/2024 8:18 AM CDT 01/26/2024 8:18 AM CDT Stan Treviño MD LAB POCT ORDERABLES - DEVICE Final Result Performing Organization Address [facility] [place] [address] * POCT glucose (01/26/2024 6:38 AM CDT) Glucose, POC 111 70 - 199 mg/dL Blood 01/26/2024 6:38 AM CDT 01/26/2024 6:38 AM CDT Stan Treviño MD LAB POCT ORDERABLES - DEVICE Final Result Performing Organization Address [facility] [place] [address] * POCT glucose (01/26/2024 5:01 AM CDT) [facility] Signature Glucose, POC 107 70 - 199 mg/dL Blood 01/26/2024 5:01 AM CDT 01/26/2024 5:01 AM CDT Stan Treviño MD LAB POCT ORDERABLES - DEVICE Final Result Performing Organization Address [facility] Co de Phone Number [facility] [place] [address] * (ABNORMAL) POCT glucose (01/26/2024 4:31 AM CDT) Glucose, POC 64(L) 70 - 199 mg/dL Blood 01/26/2024 4:31 AM CDT 01/26/2024 4:31 AM CDT us Stan Treviño MD LAB POCT ORDERABLES - DEVICE Final Result Performing Organization Address [facility] Co de Phone Number [facility] [place] [address] * ECG 12 lead (01/26/2024 2:54 AM CDT) [facility] Ventricular Rate EKG/Min 74 BPM [facility] Atrial Rate 74 BPM [facility] NV-Interval (MSEC) 140 ms [facility] QRS-Interval (MSEC) 124 ms [facility] QT-Interval (MSEC) 444 ms [facility] QTc 492 ms [facility] P [place] 50 degrees [facility] R [place] -57 degrees [facility] T [place] 27 degrees [facility] Diagnosis Sinus rhythm with frequent Premature ventricular complexes Right bundle branch block Left anterior fascicular block Bifascicular block Possible Lateral infarct (cited on or before 25-JAN-2024) Abnormal ECG When compared with ECG of 25-JAN-2024 13:07, (unconfirmed) Premature ventricular complexes are now Present Confirmed by MAHI RACHEL M.D ([id number]) on 01/27/2024 12:50:01 PM [facility] 01/26/2024 2:54 AM CDT 01/27/2024 12:50 PM CDT us Marisela Russell EAR FLAP BINDER ECG ORDERABLES Final Res ult Performing Organization Address City/[facility]/ZIP Co de Phone Number [facility] * POCT glucose (01/26/2024 2:43 AM CDT) [facility] Glucose, POC 83 70 - 199 mg/dL Blood 01/26/2024 2:43 AM CDT 01/26/2024 2:43 AM CDT Stan Treviño MD LAB POCT ORDERABLES - DEVICE Final Result [facility] Department [place] [address] * (ABNORMAL) eGFR (01/25/2024 9:40 PM CDT) [facility] eGFR 43(L) >=60 mL/min/1. 73 m2 Comment: [...] NP LAB BLOOD ORDERABLES Final R esult [facility] Department of Laboratories [place], [place] [id number] * (ABNORMAL) CBC without differential (01/25/2024 9:40 PM CDT) WBC 8.6 3.8 - 9.9 K/cumm Hgb 8.5(L) 11.9 - 15.5 g/dL [facility] Hct 26.8(L) 35.6 - 45.5 % [facility] Plt 210 150 - 400 K/cumm [facility] MPV 11.3 9.1 - 12.3 fL [facility] RBC 2.95(L) 3.90 - 5.20 M/cumm [facility] MCV 90.8 81.3 - 96.4 fL [facility] MCH 28.8 27.1 - 33.3 pg [facility] MCHC 31.7(L) 32.3 - 35.7 g/dL [facility] RDW CV 13.8 11.1 - 14.9 % [facility] RDW SD 45.3 35.7 - 48.1 fL [facility] NRBC abs 0.00 0.00 - 0.01 K/cumm [facility] Blood 01/25/2024 9:40 PM CDT 01/25/2024 10:45 PM CDT Nii Garces NP LAB BLOOD ORDERABLES Final R esult [facility] Department [place] [address] * (ABNORMAL) Basic metabolic panel (01/25/2024 9:40 PM CDT) [facility] Sodium 141 135 - 145 mmol/L Potassium, pl 3.6 3.3 - 4.9 mmol/L [facility] Chloride 105 97 - 110 mmol/L [facility] CO2 26 22 - 32 mmol/L [facility] Anion gap 10 2 - 15 mmol/L [facility] BUN 36(H) 6 - 25 mg/dL [facility] Creatinine 1.30(H) 0.60 - 1.10 mg/dL [facility] Glucose 131 70 - 199 mg/dL [facility] Comment: Interpretive Data Fasting glucose [...] 2022. Calcium 8.6 8.5 - 10.3 mg/dL [facility] Blood 01/25/2024 9:40 PM CDT 01/25/2024 10:45 PM CDT Nii Garces NP LAB BLOOD ORDERABLES Final R esult Performing Organization Address [facility] Co de Phone Number [facility] [address] [address] * Phosphorus (01/25/2024 9:40 PM CDT) Phosphorus, pl 4.2 2.3 - 4.5 mg/dL Blood 01/25/2024 9:40 PM CDT 01/25/2024 10:45 PM CDT Nii Garces NP LAB BLOOD ORDERABLES Final R esult Performing Organization Address City/[facility] Co de Phone Number [facility] [address] [place] [address] * Magnesium (01/25/2024 9:40 PM CDT) Pathologist [facility] Magnesium 2.1 1.4 - 2.5 mg/dL Blood 01/25/2024 9:40 PM CDT 01/25/2024 10:45 PM CDT Nii Garces NP LAB BLOOD ORDERABLES Final R esult Performing Organization Address City/[facility] Co de Phone Number [facility] [address] [address] * POCT glucose (01/25/2024 9:39 PM CDT) Glucose, POC 146 70 - 199 mg/dL Blood 01/25/2024 9:39 PM CDT 01/25/2024 9:39 PM CDT Stan Treviño MD LAB POCT ORDERABLES - DEVICE Final Result Performing Organization Address [facility] Co de Phone Number [facility] [address] [place] [address] * POCT glucose (01/25/2024 6:40 PM CDT) Glucose, POC 197 70 - 199 mg/dL Blood 01/25/2024 6:40 PM CDT 01/25/2024 6:40 PM CDT Stan Treviño MD LAB POCT ORDERABLES - DEVICE Final Result Performing Organization Address [facility] de Phone Number [facility] [address] [place] [address] * POCT glucose (01/25/2024 5:32 PM CDT) Glucose, POC 111 70 - 199 mg/dL Blood 01/25/2024 5:32 PM CDT 01/25/2024 5:32 PM CDT Stan Treviño MD LAB POCT ORDERABLES - DEVICE Final Result Performing Organization Address [facility] Co de Phone Number [facility] [address] [place] [address] * POCT glucose (01/25/2024 5:16 PM CDT) Glucose, POC 72 70 - 199 mg/dL Blood 01/25/2024 5:16 PM CDT 01/25/2024 5:16 PM CDT Stan Treviño MD LAB POCT ORDERABLES - DEVICE Final Result Performing Organization Address [facility] Co de Phone Number [facility] [place] [address] * (ABNORMAL) POCT glucose (01/25/2024 5:00 PM CDT) Glucose, POC 61(L) 70 - 199 mg/dL Blood 01/25/2024 5:00 PM CDT 01/25/2024 5:00 PM CDT us Stan Treviño MD LAB POCT ORDERABLES - DEVICE Final Result [facility] [place] [address] * ECG 12 lead (01/25/2024 1:07 PM CDT) Pathologist [facility] Ventricular Rate EKG/Min 74 BPM [facility] Atrial Rate 74 BPM [facility] NV-Interval (MSEC) 122 ms [facility] QRS-Interval (MSEC) 126 ms [facility] QT-Interval (MSEC) 442 ms [facility] QTc 490 ms [facility] P [place] 55 degrees [facility] R [place] -53 degrees [facility] T [place] 27 degrees [facility] Diagnosis Normal sinus rhythm Right bundle branch block Left anterior fascicular block Bifascicular block Possible Lateral infarct , age undetermined Abnormal ECG Confirmed by Anu CLARK, [facility] ([id number]) on 01/27/2024 2:47:59 PM [facility] 01/25/2024 1:07 PM CDT 01/27/2024 2:47 PM CDT us Marisela Russell NP ECG ORDERABLES Final Res ult [facility] * XR Chest Pa Lateral 2 Views [...] signed by: Robert Fiore M.D. Marisela Russell EAR FLAP BINDER IMG XR PROCEDURES Final R esult * (ABNORMAL) POCT glucose (01/25/2024 11:10 AM CDT) Glucose, POC 221(H) 70 - 199 mg/dL Blood 01/25/2024 11:1 0 AM CDT 01/25/2024 11:10 AM CDT Stan Treviño MD LAB POCT ORDERABLES - DEVICE Final Result [facility] Department [place] [address] * POCT glucose (01/25/2024 8:28 AM CDT) Glucose, POC 124 70 - 199 mg/dL Blood 01/25/2024 8:28 AM CDT 01/25/2024 8:28 AM CDT Stan Treviño MD LAB POCT ORDERABLES - DEVICE Final Result Performing Organization Address [facility] Co de Phone Number [facility] [place] [address] * POCT glucose (01/25/2024 2:02 AM CDT) Glucose, POC 109 70 - 199 mg/dL Blood 01/25/2024 2:02 AM CDT 01/25/2024 2:02 AM CDT Stan Treviño MD LAB POCT ORDERABLES - DEVICE Final Result Performing Organization Address [facility] de Phone Number [facility] [place] [address] * (ABNORMAL) eGFR (01/24/2024 8:13 PM CDT) [...] ORDERABLES Final R esult Performing Organization Address City/[facility]/ZIP Co de Phone Number [facility] Department [place] [address] * (ABNORMAL) CBC without differential (01/24/2024 8:13 PM CDT) WBC 8.6 3.8 - 9.9 K/cumm Hgb 8.5(L) 11.9 - 15.5 g/dL [facility] Hct 27.3(L) 35.6 - 45.5 % [facility] Plt 169 150 - 400 K/cumm [facility] MPV 11.1 9.1 - 12.3 fL [facility] RBC 2.96(L) 3.90 - 5.20 M/cumm [facility] MCV 92.2 81.3 - 96.4 fL [facility] MCH 28.7 27.1 - 33.3 pg [facility] MCHC 31.1(L) 32.3 - 35.7 g/dL [facility] RDW CV 13.9 11.1 - 14.9 % [facility] RDW SD 46.5 35.7 - 48.1 fL [facility] NRBC abs 0.00 0.00 - 0.01 K/cumm [facility] Blood 01/24/2024 8:13 PM CDT 01/24/2024 8:53 PM CDT us Nii Garces NP LAB BLOOD ORDERABLES Final R esult [facility] Department [place] [address] * (ABNORMAL) Basic metabolic panel (01/24/2024 8:13 PM CDT) Pathologist [facility] Sodium 143 135 - 145 mmol/L Potassium, pl 4.0 3.3 - 4.9 mmol/L [facility] Chloride 108 97 - 110 mmol/L [facility] CO2 23 22 - 32 mmol/L [facility] Anion gap 12 2 - 15 mmol/L [facility] BUN 33(H) 6 - 25 mg/dL [facility] Creatinine 1.06 0.60 - 1.10 mg/dL [facility] Glucose 140 70 - 199 mg/dL [facility] Comment: Interpretive Data Fasting glucose [...] 2022. Calcium 8.2(L) 8.5 - 10.3 mg/dL [facility] Blood 01/24/2024 8:13 PM CDT 01/24/2024 8:52 PM CDT Nii Garces NP LAB BLOOD ORDERABLES Final R esult [facility] Department [place] [address] * Phosphorus (01/24/2024 8:13 PM CDT) Pathologist [facility] Phosphorus, pl 3.1 2.3 - 4.5 mg/dL Blood 01/24/2024 8:13 PM CDT 01/24/2024 8:52 PM CDT us Nii Garces NP LAB BLOOD ORDERABLES Final R esult Performing Organization Address [facility] [place] [address] * Magnesium (01/24/2024 8:13 PM CDT) Magnesium 2.0 1.4 - 2.5 mg/dL Blood 01/24/2024 8:13 PM CDT 01/24/2024 8:52 PM CDT Nii Garces NP LAB BLOOD ORDERABLES Final R esult Performing Organization Address [facility] [place] [address] * POCT glucose (01/24/2024 7:27 PM CDT) Glucose, POC 161 70 - 199 mg/dL Blood 01/24/2024 7:27 PM CDT 01/24/2024 7:27 PM CDT Stan Trveiño MD LAB POCT ORDERABLES - DEVICE Final Result Performing Organization Address [facility] Co de Phone Number [facility] [address] [place] [address] * POCT glucose (01/24/2024 4:26 PM CDT) Glucose, POC 97 70 - 199 mg/dL Blood 01/24/2024 4:26 PM CDT 01/24/2024 4:26 PM CDT Stan Treviño MD LAB POCT ORDERABLES - DEVICE Final Result Performing Organization Address [facility] Co de Phone Number [facility] [address] [place] [address] * XR Chest 1 View - in [...] it. Electronically signed by: Ceasar Sesay M.D. Cinthia BATISTA IMG XR PROCEDURES Phyllis l Result * POCT glucose (01/24/2024 12:27 PM CDT) Glucose, POC 125 70 - 199 mg/dL Blood 01/24/2024 12:2 7 PM CDT 01/24/2024 12:27 PM CDT Stan Treviño MD LAB POCT ORDERABLES - DEVICE Final Result Performing Organization Address [facility] de Phone Number [facility] [place] [address] [place] [address] * POCT glucose (01/24/2024 7:32 AM CDT) Glucose, POC 143 70 - 199 mg/dL Blood 01/24/2024 7:32 AM CDT 01/24/2024 7:32 AM CDT Stan Treviño MD LAB POCT ORDERABLES - DEVICE Final Result Performing Organization Address [facility] de Phone Number [facility] [address] [place] [address] * POCT glucose (01/24/2024 1:43 AM CDT) Glucose, POC 194 70 - 199 mg/dL Blood 01/24/2024 1:43 AM CDT 01/24/2024 1:43 AM CDT Stan Treviño MD LAB POCT ORDERABLES - DEVICE Final Result Performing Organization Address [facility] Phone [facility] [address] [place] [address] * (ABNORMAL) eGFR (01/23/2024 10:31 PM CDT) eGFR 44(L) >=60 mL/min/1. 73 m2 Comment: [...] NP LAB BLOOD ORDERABLES Final R esult [facility] Department [place] [address] * (ABNORMAL) CBC without differential (01/23/2024 10:31 PM CDT) Pathologist [facility] WBC 7.2 3.8 - 9.9 K/cumm Hgb 8.4(L) 11.9 - 15.5 g/dL [facility] Hct 25.8(L) 35.6 - 45.5 % [facility] Plt 155 150 - 400 K/cumm [facility] MPV 11.5 9.1 - 12.3 fL [facility] RBC 2.84(L) 3.90 - 5.20 M/cumm [facility] MCV 90.8 81.3 - 96.4 fL [facility] MCH 29.6 27.1 - 33.3 pg [facility] MCHC 32.6 32.3 - 35.7 g/dL [facility] RDW CV 13.9 11.1 - 14.9 % [facility] RDW SD 46.9 35.7 - 48.1 fL [facility] NRBC abs 0.00 0.00 - 0.01 K/cumm [facility] Blood 01/23/2024 10:3 1 PM CDT 01/23/2024 10:59 PM CDT Nii Garces NP LAB BLOOD ORDERABLES Final R esult [facility] Department [place] [address] * (ABNORMAL) Basic metabolic panel (01/23/2024 10:31 PM CDT) Sodium 139 135 - 145 mmol/L Potassium, pl 4.4 3.3 - 4.9 mmol/L [facility] Chloride 106 97 - 110 mmol/L [facility] CO2 22 22 - 32 mmol/L [facility] Anion gap 11 2 - 15 mmol/L [facility] BUN 43(H) 6 - 25 mg/dL [facility] Creatinine 1.28(H) 0.60 - 1.10 mg/dL [facility] Glucose 242(H) 70 - 199 mg/dL [facility] Comment: Interpretive Data Fasting glucose [...] 2022. Calcium 8.3(L) 8.5 - 10.3 mg/dL [facility] Blood 01/23/2024 10:3 1 PM CDT 01/23/2024 11:08 PM CDT Nii Garces NP LAB BLOOD ORDERABLES Final R esult Performing Organization Address City/[facility]/ZIP Co de Phone Number [facility] [place] [address] * Phosphorus (01/23/2024 10:31 PM CDT) Phosphorus, pl 2.6 2.3 - 4.5 mg/dL Blood 01/23/2024 10:3 1 PM CDT 01/23/2024 11:08 PM CDT Nii Garces NP LAB BLOOD ORDERABLES Final R esult Performing Organization Address [facility] Co de Phone Number [facility] [place] [address] * Magnesium (01/23/2024 10:31 PM CDT) Magnesium 2.2 1.4 - 2.5 mg/dL Blood 01/23/2024 10:3 1 PM CDT 01/23/2024 11:08 PM CDT Nii Garces NP LAB BLOOD ORDERABLES Final R esult Performing Organization Address [facility] Co de Phone Number [facility] [place] [address] * Type and screen (01/23/2024 10:31 PM CDT) ABO Rh A Positive Sergio, indirect Negative [facility] Blood 01/23/2024 10:3 1 PM CDT 01/23/2024 11:07 PM CDT Narrative [facility] - 01/24/2024 12:04 AM CDT Has the patient had Daratumumab or Isatuximab in the past 6 months?->Unknown Stan Treviño MD LAB BLOOD BANK TEST ORDERABLE S Final Result JORGE MANSFIELD [facility] Department [place] [address] * (ABNORMAL) POCT glucose (01/23/2024 7:57 PM CDT) Glucose, POC 272(H) 70 - 199 mg/dL Blood 01/23/2024 7:57 PM CDT 01/23/2024 7:57 PM CDT Stan Treviño MD LAB POCT ORDERABLES - DEVICE Final Result Performing Organization Address [facility] Co de Phone Number JORGE MANSFIELD [facility] Department [place] [address] * XR Chest 1 View - in [...] study. Electronically signed by: Guanakito Reed M.D. Nii Garces E[employer]AP [employer]ER IMG XR PROCEDURES Final Resu lt * POCT glucose (01/23/2024 5:59 PM CDT) Glucose, POC 142 70 - 199 mg/dL Blood 01/23/2024 5:59 PM CDT 01/23/2024 5:59 PM CDT Stan Treviño MD LAB POCT ORDERABLES - DEVICE Final Result Performing Organization Address City/[facility] Co de Phone Number [facility] Department [place] [address] [address] * POCT glucose (01/23/2024 5:36 PM CDT) Glucose, POC 97 70 - 199 mg/dL Blood 01/23/2024 5:36 PM CDT 01/23/2024 5:36 PM CDT Stan Treviño MD LAB POCT ORDERABLES - DEVICE Final Result Performing Organization Address City/[facility]/ZIP Co de Phone Number [facility] Department [place] [address] [address] * (ABNORMAL) POCT glucose (01/23/2024 5:09 PM CDT) Glucose, POC 56(L) 70 - 199 mg/dL Blood 01/23/2024 5:09 PM CDT 01/23/2024 5:09 PM CDT us Stan Treviño MD LAB POCT ORDERABLES - DEVICE Final Result Performing Organization Address [facility] [place] [address] * (ABNORMAL) POCT glucose (01/23/2024 11:34 AM CDT) Glucose, POC 217(H) 70 - 199 mg/dL Blood 01/23/2024 11:3 4 AM CDT 01/23/2024 11:34 AM CDT us Stna Treviño MD LAB POCT ORDERABLES - DEVICE Final Result Performing Organization Address [facility] [place] Phone Number [facility] [address] [address] * POCT glucose (01/23/2024 7:39 AM CDT) Glucose, POC 152 70 - 199 mg/dL Blood 01/23/2024 7:39 AM CDT 01/23/2024 7:39 AM CDT us Stan Treviño MD LAB POCT ORDERABLES - DEVICE Final Result Performing Organization Address [facility] Co de Phone Number [facility] [address] [address] * POCT glucose (01/23/2024 2:16 AM CDT) Glucose, POC 141 70 - 199 mg/dL Blood 01/23/2024 2:16 AM CDT 01/23/2024 2:16 AM CDT us Stan Treviño MD LAB POCT ORDERABLES - DEVICE Final Result Performing Organization Address [facility] Co de Phone Number JORGE MANSFIELD [facility] Department [place] [address] * POCT glucose (01/22/2024 11:19 PM CDT) Pathologist [facility] Glucose, POC 183 70 - 199 mg/dL Blood 01/22/2024 11:1 9 PM CDT 01/22/2024 11:19 PM CDT Stan Treviño MD LAB POCT ORDERABLES - DEVICE Final Result Performing Organization Address [facility] Co de Phone Number JORGE MANSFIELD [facility] [place] [address] * (ABNORMAL) eGFR (01/22/2024 10:21 PM CDT) [facility] eGFR 39(L) >=60 mL/min/1. 73 m2 Comment: [...] NP LAB BLOOD ORDERABLES Final R esult [facility] Department [place] [address] [address] * (ABNORMAL) CBC without differential (01/22/2024 10:21 PM CDT) Pathologist [facility] WBC 11.2(H) 3.8 - 9.9 K/cumm Hgb 8.7(L) 11.9 - 15.5 g/dL [facility] Hct 26.9(L) 35.6 - 45.5 % [facility] Plt 136(L) 150 - 400 K/cumm [facility] MPV 11.6 9.1 - 12.3 fL [facility] RBC 2.96(L) 3.90 - 5.20 M/cumm [facility] MCV 90.9 81.3 - 96.4 fL [facility] MCH 29.4 27.1 - 33.3 pg [facility] MCHC 32.3 32.3 - 35.7 g/dL [facility] RDW CV 14.3 11.1 - 14.9 % [facility] RDW SD 47.3 35.7 - 48.1 fL [facility] NRBC abs 0.00 0.00 - 0.01 K/cumm [facility] Blood 01/22/2024 10:2 1 PM CDT 01/22/2024 10:40 PM CDT Nii Garces NP LAB BLOOD ORDERABLES Final R esult [facility] [place] [address] [address] * (ABNORMAL) Basic metabolic panel (01/22/2024 10:21 PM CDT) Sodium 139 135 - 145 mmol/L Potassium, pl 4.4 3.3 - 4.9 mmol/L [facility] Chloride 106 97 - 110 mmol/L [facility] CO2 23 22 - 32 mmol/L [facility] Anion gap 10 2 - 15 mmol/L [facility] BUN 43(H) 6 - 25 mg/dL [facility] Creatinine 1.41(H) 0.60 - 1.10 mg/dL [facility] Glucose 195 70 - 199 mg/dL [facility] Comment: Interpretive Data Fasting glucose [...] 2022. Calcium 8.6 8.5 - 10.3 mg/dL [facility] Blood 01/22/2024 10:2 1 PM CDT 01/22/2024 10:41 PM CDT Nii Garces NP LAB BLOOD ORDERABLES Final R esult [facility] Department [place] [address] * (ABNORMAL) Phosphorus (01/22/2024 10:21 PM CDT) Phosphorus, pl 2.2(L) 2.3 - 4.5 mg/dL Blood 01/22/2024 10:2 1 PM CDT 01/22/2024 10:41 PM CDT Nii Ray Palmejar [employer] LAB BLOOD ORDERABLES Final R esult Performing Organization Address [facility] Co de Phone Number [facility] Department [place] [address] * Magnesium (01/22/2024 10:21 PM CDT) Magnesium 2.4 1.4 - 2.5 mg/dL Blood 01/22/2024 10:2 1 PM CDT 01/22/2024 10:41 PM CDT us Nii Garces [employer] LAB BLOOD ORDERABLES Final R esult Performing Organization Address [facility] Co de Phone Number [facility] [place] [address] * POCT glucose (01/22/2024 8:38 PM CDT) Glucose, POC 188 70 - 199 mg/dL Blood 01/22/2024 8:38 PM CDT 01/22/2024 8:38 PM CDT us Stan Treviño MD LAB POCT ORDERABLES - DEVICE Final Result Performing Organization Address [facility] Co de Phone Number [facility] [place] [address] * XR Chest 1 View - in [...] * POCT glucose (01/22/2024 4:35 PM CDT) Glucose, POC 94 70 - 199 mg/dL Blood 01/22/2024 4:35 PM CDT 01/22/2024 4:35 PM CDT us Stan Treviño MD LAB POCT ORDERABLES - DEVICE Final Result [facility] Department [place] [address] * XR Chest 1 View (01/22/2024 2:43 [...] by: Erica Mustafa M.D. us Nii Garces EAR FLAP BINDER IMG XR PROCEDURES Final Resu lt * POCT glucose (01/22/2024 12:03 PM CDT) Glucose, POC 196 70 - 199 mg/dL Blood 01/22/2024 12:0 3 PM CDT 01/22/2024 12:03 PM CDT Stan Treviño MD LAB POCT ORDERABLES - DEVICE Final Result Performing Organization Address [facility] Co de Phone Number [facility] [place] [address] * POCT glucose (01/22/2024 7:29 AM CDT) Glucose, POC 161 70 - 199 mg/dL Blood 01/22/2024 7:29 AM CDT 01/22/2024 7:29 AM CDT Stan Treviño MD LAB POCT ORDERABLES - DEVICE Final Result Performing Organization Address [facility] de Phone Number [facility] Department [place] [address] * (ABNORMAL) eGFR (01/22/2024 5:58 AM CDT) [...] data was last reviewed 2021. Blood 01/22/2024 5:58 AM CDT 01/22/2024 6:26 AM CDT us Bri Lindo [employer] LAB BLOOD ORDERABLES Final Result Performing Organization Address City/[facility] Co de Phone Number [facility] [address] [address] * Phosphorus (01/22/2024 5:58 AM CDT) Phosphorus, pl 2.8 2.3 - 4.5 mg/dL Blood 01/22/2024 5:58 AM CDT 01/22/2024 6:26 AM CDT us Bri Lindo E[employer] LAB BLOOD ORDERABLES Final Result Performing Organization Address [facility] de Phone Number [facility] [address] [address] * Magnesium (01/22/2024 5:58 AM CDT) Magnesium 2.3 1.4 - 2.5 mg/dL Blood 01/22/2024 5:58 AM CDT 01/22/2024 6:26 AM CDT us Bri Lindo E[employer] LAB BLOOD ORDERABLES Final Result Performing Organization Address City/[facility] [place] [address] * (ABNORMAL) Basic metabolic panel (01/22/2024 5:58 AM CDT) Sodium 139 135 - 145 mmol/L Potassium, pl 4.5 3.3 - 4.9 mmol/L [facility] Chloride 106 97 - 110 mmol/L [facility] CO2 25 22 - 32 mmol/L [facility] Anion gap 8 2 - 15 mmol/L [facility] BUN 40(H) 6 - 25 mg/dL [facility] Creatinine 1.53(H) 0.60 - 1.10 mg/dL [facility] Glucose 162 70 - 199 mg/dL [facility] Comment: Interpretive Data Fasting glucose [...] 2022. Calcium 8.9 8.5 - 10.3 mg/dL [facility] Blood 01/22/2024 5:58 AM CDT 01/22/2024 6:26 AM CDT us Bri Lindo NP LAB BLOOD ORDERABLES Final Result [facility] Department [place] [address] * (ABNORMAL) CBC without differential (01/22/2024 5:58 AM CDT) Pathologist [facility] WBC 14.0(H) 3.8 - 9.9 K/cumm Hgb 8.7(L) 11.9 - 15.5 g/dL [facility] Hct 26.9(L) 35.6 - 45.5 % [facility] Plt 134(L) 150 - 400 K/cumm [facility] MPV 11.9 9.1 - 12.3 fL [facility] RBC 2.88(L) 3.90 - 5.20 M/cumm [facility] MCV 93.4 81.3 - 96.4 fL [facility] MCH 30.2 27.1 - 33.3 pg [facility] MCHC 32.3 32.3 - 35.7 g/dL [facility] RDW CV 14.1 11.1 - 14.9 % [facility] RDW SD 48.2(H) 35.7 - 48.1 fL [facility] NRBC abs 0.00 0.00 - 0.01 K/cumm [facility] Blood 01/22/2024 5:58 AM CDT 01/22/2024 6:26 AM CDT Bri Lindo E[employer] LAB BLOOD ORDERABLES Final Result Performing Organization Address [facility] Co de Phone Number [facility] Department [place] [address] * Infection Prevention Ema auris PCR, surveillance Axilla/Groin (01/22/2024 5:55 AM CDT) Pathologist [facility] Ema auris DNA Not Detected Not Detected [facility] Comment: Interpretive Data Testing performed by [facility] Molecular Infectious Disease Laboratory using the Central Test Liaison MDX Ema auris assay. ??This assay detects DNA from Ema auris using Real-Time PCR. ??This assay is laboratory developed and is not cleared by the [facility] Food and Drug Administration. ??The performance characteristics have been verified by the [facility] Infectious Disease [facility]. Interpretive data was last reviewed on 09/04/2023 Axilla/Groin 01/22/2024 5:55 AM CDT 01/22/2024 6:35 AM CDT Jean Paul Platt MD LAB MICROBIOLOGY - GENERAL OR DERABLES Final Result Performing Organization Address [facility]/ZIP Co de Phone Number [facility] Department [place] [address] [facility] * POCT glucose (01/22/2024 2:42 AM CDT) Pathologist [facility] Glucose, POC 165 70 - 199 mg/dL Blood 01/22/2024 2:42 AM CDT 01/22/2024 2:42 AM CDT us Stan Treviño MD LAB POCT ORDERABLES - DEVICE Final Result Performing Organization Address [facility] Co de Phone Number [facility] Department [place] [address] * POCT glucose (01/22/2024 12:53 AM CDT) Glucose, POC 167 70 - 199 mg/dL Blood 01/22/2024 12:5 3 AM CDT 01/22/2024 12:53 AM CDT Stan Treviño MD LAB POCT ORDERABLES - DEVICE Final Result Performing Organization Address [facility] de Phone Number [facility] Department [place] [address] * XR Chest 1 View - in [...] 8:36 PM CDT 01/21/2024 8:36 PM CDT Stan Treviño MD LAB POCT ORDERABLES - DEVICE Final Result Performing Organization Address [facility] Co de Phone Number [facility] Department [place] [address] [address] * (ABNORMAL) POCT glucose (01/21/2024 5:08 PM CDT) Glucose, POC 259(H) 70 - 199 mg/dL Blood 01/21/2024 5:08 PM CDT 01/21/2024 5:08 PM CDT Stan Treviño MD LAB POCT ORDERABLES - DEVICE Final Result Performing Organization Address [facility] Co de Phone Number [facility] Department [place] [address] * (ABNORMAL) POCT glucose (01/21/2024 11:42 AM CDT) Glucose, POC 228(H) 70 - 199 mg/dL Blood 01/21/2024 11:4 2 AM CDT 01/21/2024 11:42 AM CDT Stan Treviño MD LAB POCT ORDERABLES - DEVICE Final Result [facility] Department [place] [address] * ECG 12 lead (01/21/2024 11:01 AM CDT) Pathologist [facility] Ventricular Rate EKG/Min 98 BPM [facility] Atrial Rate 98 BPM [facility] NV-Interval (MSEC) 122 ms [facility] QRS-Interval (MSEC) 118 ms [facility] QT-Interval (MSEC) 388 ms [facility] QTc 495 ms [facility] P [place] 61 degrees [facility] R [place] -51 degrees [facility] T [place] 13 degrees [facility] Diagnosis Normal sinus rhythm with sinus arrhythmia Incomplete right bundle branch block Left anterior fascicular block Prolonged QT Possible Right ventricular hypertrophy When compared with ECG of 20-JAN-2024 17:04, (unconfirmed) ST no longer depressed in Lateral leads Confirmed by JEAN PAUL BUSTOS M.D ([id number]) on 01/22/2024 9:02:17 AM [facility] 01/21/2024 11:0 1 AM CDT 01/22/2024 9:02 AM CDT us Cinthia BATISTA ECG ORDERABLES Final Result [facility] * POCT glucose (01/21/2024 8:56 AM CDT) Glucose, POC 192 70 - 199 mg/dL Blood 01/21/2024 8:56 AM CDT 01/21/2024 8:56 AM CDT us Stan Treviño MD LAB POCT ORDERABLES - DEVICE Final Result CERNER [facility] Department [place] [address] * Critical Care (01/21/2024 6:00 AM CDT) [...] plan with the ICU team and other medical/mainframe consultant staff, making frequent assessments and decisions [...] * POCT glucose (01/21/2024 3:56 AM CDT) Glucose, POC 178 70 - 199 mg/dL Blood 01/21/2024 3:56 AM CDT 01/21/2024 3:56 AM CDT us Stan Treviño MD LAB POCT ORDERABLES - DEVICE Final Result Performing Organization Address [facility] Co de Phone Number JORGE MANSFIELD [facility] Department [place] [address] [address] * eGFR (01/21/2024 12:55 AM CDT) eGFR [...] ORDERABLES F inal Result Performing Organization Address [facility] Co de Phone Number JORGE MANSFIELD [facility] Department [place] [address] [address] * Phosphorus (01/21/2024 12:55 AM CDT) [facility] Phosphorus, pl 4.1 2.3 - 4.5 mg/dL Comment:Repeated and Verifie d Blood 01/21/2024 12:5 5 AM CDT 01/21/2024 1:14 AM CDT Cinthia BATISTA LAB BLOOD ORDERABLES F inal Result Performing Organization Address City/[facility] Co de Phone Number [facility] Department [place] [address] * Magnesium (01/21/2024 12:55 AM CDT) [facility] Magnesium 2.3 1.4 - 2.5 mg/dL Blood 01/21/2024 12:5 5 AM CDT 01/21/2024 1:14 AM CDT Cinthia BATISTA LAB BLOOD ORDERABLES F inal Result Performing Organization Address City/[facility] de Phone Number [facility] [place] [address] * (ABNORMAL) Basic metabolic panel (01/21/2024 12:55 AM CDT) [facility] Sodium 146(H) 135 - 145 mmol/L Potassium, pl 4.8 3.3 - 4.9 mmol/L [facility] Chloride 114(H) 97 - 110 mmol/L [facility] CO2 21(L) 22 - 32 mmol/L [facility] Anion gap 11 2 - 15 mmol/L [facility] BUN 28(H) 6 - 25 mg/dL [facility] Creatinine 0.99 0.60 - 1.10 mg/dL [facility] Glucose 193 70 - 199 mg/dL [facility] Comment: Interpretive Data Fasting glucose [...] 2022. Calcium 8.8 8.5 - 10.3 mg/dL [facility] Blood 01/21/2024 12:5 5 AM CDT 01/21/2024 1:14 AM CDT us Cinthia BATISTA LAB BLOOD ORDERABLES F inal Result [facility] Department [place] [address] * (ABNORMAL) CBC without differential (01/21/2024 12:55 AM CDT) Pathologist [facility] WBC 8.9 3.8 - 9.9 K/cumm Hgb 8.6(L) 11.9 - 15.5 g/dL [facility] Hct 26.4(L) 35.6 - 45.5 % [facility] Plt 132(L) 150 - 400 K/cumm [facility] MPV 11.0 9.1 - 12.3 fL [facility] RBC 2.88(L) 3.90 - 5.20 M/cumm [facility] MCV 91.7 81.3 - 96.4 fL [facility] MCH 29.9 27.1 - 33.3 pg [facility] MCHC 32.6 32.3 - 35.7 g/dL [facility] RDW CV 13.3 11.1 - 14.9 % [facility] RDW SD 44.6 35.7 - 48.1 fL [facility] NRBC abs 0.00 0.00 - 0.01 K/cumm [facility] Blood 01/21/2024 12:5 5 AM CDT 01/21/2024 1:14 AM CDT Cinthia BATISTA LAB BLOOD ORDERABLES F inal Result JORGE CRANE [facility] Department [place] [address] * XR Chest 1 View - in [...] by: Cesar Sutton MD, PHD us Cinthia BATISTA IMG XR PROCEDURES Phyllis l Result * POCT glucose (01/20/2024 8:35 PM CDT) [facility] Signature Glucose, POC 121 70 - 199 mg/dL Blood 01/20/2024 8:35 PM CDT 01/20/2024 8:35 PM CDT us Stan Treviño MD LAB POCT ORDERABLES - DEVICE Final Result [facility] Department [place] [address] * XR Chest 1 View (01/20/2024 7:10 [...] by: Cesar Sutton MD, PHD us Stan rTeviño MD IMG XR PROCEDURES Final Resul t [...] it. Electronically signed by: Elma Brady M.D. us Cinthia BATISTA IMG XR PROCEDURES [...] plan with the ICU team and other medical/mainframe consultant staff, making frequent assessments and decisions [...] * POCT glucose (01/20/2024 6:06 PM CDT) Pathologist [facility] Glucose, POC 106 70 - 199 mg/dL Blood 01/20/2024 6:06 PM CDT 01/20/2024 6:06 PM CDT us Stan Treviño MD LAB POCT ORDERABLES - DEVICE Final Result JORGE [facility] Department [place] [address] * ECG 12 lead (01/20/2024 5:04 PM CDT) Ventricular Rate EKG/Min 94 BPM [facility] Atrial Rate 94 BPM [facility] NV-Interval (MSEC) 140 ms [facility] QRS-Interval (MSEC) 122 ms [facility] QT-Interval (MSEC) 412 ms [facility] QTc 515 ms [facility] P [place] 73 degrees [facility] R [place] -61 degrees [facility] T [place] 38 degrees [facility] Diagnosis Normal sinus rhythm Right bundle branch block Left anterior fascicular block Bifascicular block Abnormal ECG Confirmed by Anu CLARK [facility] ([id number]) on 01/22/2024 12:20:57 AM [facility] 01/20/2024 5:04 PM CDT 01/22/2024 12:20 AM CDT us Stan Treviño MD ECG ORDERABLES Final Result [facility] * Triglycerides (01/20/2024 4:52 PM CDT) Triglycerides [...] PM CDT 01/20/2024 5:20 PM CDT us Stan Trevñio MD LAB BLOOD ORDERABLES Final Re sult Performing Organization Address [facility] Phone Number [facility] Department [place] [address] * eGFR (01/20/2024 4:52 PM CDT) eGFR 64 >=60 mL/min/1. 73 m2 Comment: [...] ORDERABLES F inal Result Performing Organization Address City/State/[facility] de Phone Number [facility] [place] [address] [address] * aPTT (01/20/2024 4:52 PM CDT) aPTT 29 28 - 38 sec Comment: Interpretive Data Heparin therapeutic range: 66.0 - 100.0 seconds. Range based on correlation with therapeutic heparin activity range of 0.3 - 0.7 Units/mL. Current interpretive data was last revised on 2023. Blood 01/20/2024 4:52 PM CDT 01/20/2024 5:25 PM CDT Stan Treviño MD LAB BLOOD ORDERABLES Final Re sult Performing Organization Address [facility] [place] [address] * (ABNORMAL) Protime-INR (01/20/2024 4:52 PM CDT) PT 13.3(H) 9.7 - 13.0 sec INR 1.23(H) 0.90 - 1.20 [facility] Comment: Interpretive data Oral anticoagulant therapeutic ranges: Venous thromboembolism prophylaxis or treatment: 2.0-3.0 CARDIOLOGY Standard range: 2.0-3.0 High-intensity range: 2.5-3.5 Refer to indication-specific guidelines for appropriate target ranges for prosthetic heart valve replacement. Current interpretive data was last revised on 2019. Blood 01/20/2024 4:52 PM CDT 01/20/2024 5:25 PM CDT Stan Treviño MD LAB BLOOD ORDERABLES Final Re sult Performing Organization Address [facility] de Phone Number [facility] [place] [address] [place] [address] * (ABNORMAL) CBC without differential (01/20/2024 4:52 PM CDT) Pathologist [facility] WBC 8.7 3.8 - 9.9 K/cumm Hgb 8.7(L) 11.9 - 15.5 g/dL [facility] Hct 26.5(L) 35.6 - 45.5 % [facility] Plt 143(L) 150 - 400 K/cumm [facility] MPV 11.1 9.1 - 12.3 fL [facility] RBC 2.98(L) 3.90 - 5.20 M/cumm [facility] MCV 88.9 81.3 - 96.4 fL [facility] MCH 29.2 27.1 - 33.3 pg [facility] MCHC 32.8 32.3 - 35.7 g/dL [facility] RDW CV 13.2 11.1 - 14.9 % [facility] RDW SD 42.7 35.7 - 48.1 fL [facility] NRBC abs 0.00 0.00 - 0.01 K/cumm [facility] Blood 01/20/2024 4:52 PM CDT 01/20/2024 5:14 PM CDT us Stan Treviño MD LAB BLOOD ORDERABLES Final Re sult [facility] [employer] [place], [place] [id number] * (ABNORMAL) Magnesium (01/20/2024 4:52 PM CDT) [facility] Magnesium 2.7(H) 1.4 - 2.5 mg/dL Blood 01/20/2024 4:52 PM CDT 01/20/2024 5:20 PM CDT us Cinthia BATISTA LAB BLOOD ORDERABLES F inal Result Performing Organization Address City/[facility]/ZIP Co de Phone Number [facility] [place] [address] [address] * (ABNORMAL) Basic metabolic panel (01/20/2024 4:52 PM CDT) Sodium 147(H) 135 - 145 mmol/L Potassium, pl 3.8 3.3 - 4.9 mmol/L [facility] Chloride 114(H) 97 - 110 mmol/L [facility] CO2 23 22 - 32 mmol/L [facility] Anion gap 10 2 - 15 mmol/L [facility] BUN 28(H) 6 - 25 mg/dL [facility] Creatinine 0.94 0.60 - 1.10 mg/dL [facility] Glucose 107 70 - 199 mg/dL [facility] Comment: Interpretive Data Fasting glucose [...] 2022. Calcium 9.2 8.5 - 10.3 mg/dL [facility] Blood 01/20/2024 4:52 PM CDT 01/20/2024 5:20 PM CDT Cinthia BATISTA LAB BLOOD ORDERABLES F inal Result [facility] Department [place] [address] * (ABNORMAL) Phosphorus (01/20/2024 4:52 PM CDT) Phosphorus, pl 1.8(L) 2.3 - 4.5 mg/dL Blood 01/20/2024 4:52 PM CDT 01/20/2024 5:20 PM CDT us Cinthia Chante Huelsmann PA LAB BLOOD ORDERABLES F inal Result [facility] Department [place] [address] * Critical Care (01/20/2024 4:47 PM CDT) [...] plan with the ICU team and other medical/mainframe consultant staff, making frequent assessments and decisions [...] Chemistries, Arterial - (01/20/2024 4:43 PM CDT) [facility] pH, Art POC 7.40 7.35 - 7.45 pCO2, Art POC 33(L) 35 - 45 mmHg [facility] pO2, Art POC 116(H) 83 - 108 mmHg [facility] Na, POC 145 135 - 145 mmol/L [facility] K POC 3.6 3.3 - 4.9 mmol/L [facility] Comment: Interpretive Data Not all point of care methods assess for hemolysis. Confirm with instrument and retest K+ if not consistent with clinical signs and symptoms. Current Interpretive Data was last revised on 2023. Cl, POC 118(H) 97 - 110 mmol/L [facility] Ionized Ca, POC 5.08 4.50 - 5.10 mg/dL [facility] Glucose, POC 104 70 - 199 mg/dL [facility] Lactate, POC 1.0 0.7 - 2.2 mmol/L [facility] SO2 (kristy) arterial 100(H) 90 - 95 % [facility] Base excess, POC -3.8 mmol/L [facility] HCO3, Art POC 20 20 - 30 mmol/L [facility] Hct, POC 27.0(L) 36.3 - 45.3 % [facility] Total Hb, POC 9.1(L) 11.9 - 15.5 g/dL [facility] Blood 01/20/2024 4:43 PM CDT 01/20/2024 4:43 PM CDT Stan Treviño MD LAB POCT ORDERABLES - DEVICE Final Result [facility] Department [place] [address] * XR Chest 1 View (01/20/2024 3:15 [...] it. Electronically signed by: Erica Mustafa M.D. Stan Treviño MD IMG XR PROCEDURES Final Resul t * (ABNORMAL) POCT hemoglobin, hematocrit and platelet count (01/20/2024 2:56 PM CDT) Hgb, POC 8.1(L) 11.9 - 15.5 g/dL Hematocrit POC 24.5(L) 35.6 - 45.5 % [facility] Platelet POC 122(L) 150 - 400 K/cumm [facility] Blood 01/20/2024 2:56 PM CDT 01/20/2024 2:56 PM CDT Stan Treviño MD LAB POCT ORDERABLES - DEVICE Final Result [facility] Department [place] [address] * (ABNORMAL) POC Blood Gas and Chemistries, Arterial - (01/20/2024 2:17 PM CDT) pH, Art POC 7.36 7.35 - 7.45 pCO2, Art POC 37 35 - 45 mmHg [facility] pO2, Art POC 282(H) 83 - 108 mmHg [facility] Na, POC 145 135 - 145 mmol/L [facility] K POC 4.0 3.3 - 4.9 mmol/L [facility] Comment: Interpretive Data Not all point of care methods assess for hemolysis. Confirm with instrument and retest K+ if not consistent with clinical signs and symptoms. Current Interpretive Data was last revised on 2023. Cl, POC 117(H) 97 - 110 mmol/L [facility] Ionized Ca, POC 5.75(H) 4.50 - 5.10 mg/dL [facility] Glucose, POC 164 70 - 199 mg/dL [facility] Lactate, POC 1.4 0.7 - 2.2 mmol/L [facility] SO2 (kristy) arterial 100(H) 90 - 95 % [facility] Base excess, POC -4.2 mmol/L [facility] HCO3, Art POC 22 20 - 30 mmol/L [facility] Hct, POC 18.0(L) 36.3 - 45.3 % [facility] Total Hb, POC 6.0(L) 11.9 - 15.5 g/dL [facility] Blood 01/20/2024 2:17 PM CDT 01/20/2024 2:17 PM CDT Stan Treviño MD LAB POCT ORDERABLES - DEVICE Final Result Performing Organization Address [facility] de Phone Number [facility] [place] [address] * (ABNORMAL) POCT prothrombin time (01/20/2024 2:16 PM CDT) PT, POC 29.6(H) 11.7 - 16.6 sec INR, POC 2.3(H) 0.9 - 1.3 [facility] Blood 01/20/2024 2:16 PM CDT 01/20/2024 2:16 PM CDT Stan Treviño MD LAB POCT ORDERABLES - DEVICE Final Result Performing Organization Address [facility] de Phone Number [facility] [place] [address] [address] * (ABNORMAL) POCT Partial thromboplastin time (PTT) (01/20/2024 2:15 PM CDT) [facility] APTT, POC 22.2(L) 32.5 - 46.1 sec Blood 01/20/2024 2:15 PM CDT 01/20/2024 2:15 PM CDT Stan Treviño MD LAB POCT ORDERABLES - DEVICE Final Result Performing Organization Address [facility] Co de Phone Number [facility] [place] [address] [address] * (ABNORMAL) POCT hemoglobin, hematocrit and platelet count (01/20/2024 2:13 PM CDT) Hgb, POC 8.0(L) 11.9 - 15.5 g/dL Hematocrit POC 24.1(L) 35.6 - 45.5 % [facility] Platelet POC 102(L) 150 - 400 K/cumm [facility] Blood 01/20/2024 2:13 PM CDT 01/20/2024 2:13 PM CDT Stan Treviño MD LAB POCT ORDERABLES - DEVICE Final Result Performing Organization Address [facility] de Phone Number [facility] [place] [address] * POCT heparin/ACT CPB (01/20/2024 2:11 PM CDT) Heparin POC 0.0 units/mL ACT, CPB 112 112 - 174 sec [facility] Blood 01/20/2024 2:11 PM CDT 01/20/2024 2:11 PM CDT Stan Treviño MD LAB POCT ORDERABLES - DEVICE Final Result Performing Organization Address [facility] de Phone Number [facility] [place] [address] * (ABNORMAL) POCT heparin/ACT CPB (01/20/2024 1:45 PM CDT) [facility] Signature Heparin POC >4.7 units/mL ACT, CPB 603(H) 112 - 174 sec [facility] Blood 01/20/2024 1:45 PM CDT 01/22/2024 8:07 AM CDT Stan Treviño MD LAB POCT ORDERABLES - DEVICE Final Result Performing Organization Address [facility] [place] [address] * (ABNORMAL) POC Blood Gas and Chemistries, Arterial - (01/20/2024 1:44 PM CDT) [facility] Signature pH, Art POC 7.41 7.35 - 7.45 pCO2, Art POC 34(L) 35 - 45 mmHg [facility] pO2, Art POC 249(H) 83 - 108 mmHg [facility] Na, POC 144 135 - 145 mmol/L [facility] K POC 4.6 3.3 - 4.9 mmol/L [facility] Comment: Interpretive Data Not all point of care methods assess for hemolysis. Confirm with instrument and retest K+ if not consistent with clinical signs and symptoms. Current Interpretive Data was last revised on 2023. Cl, POC 116(H) 97 - 110 mmol/L [facility] Ionized Ca, POC 4.58 4.50 - 5.10 mg/dL [facility] Glucose, POC 169 70 - 199 mg/dL [facility] Lactate, POC 1.4 0.7 - 2.2 mmol/L [facility] SO2 (kristy) arterial 99(H) 90 - 95 % [facility] Base excess, POC -2.7 mmol/L [facility] HCO3, Art POC 22 20 - 30 mmol/L [facility] Hct, POC 24.0(L) 36.3 - 45.3 % [facility] Total Hb, POC 7.9(L) 11.9 - 15.5 g/dL [facility] Blood 01/20/2024 1:44 PM CDT 01/20/2024 1:44 PM CDT Stan Treviño MD LAB POCT ORDERABLES - DEVICE Final Result Performing Organization Address City/[facility]/ZIP Co de Phone Number [facility] Department [place] [address] * (ABNORMAL) POCT heparin/ACT CPB (01/20/2024 1:16 PM CDT) Heparin POC >4.7 units/mL ACT, CPB 603(H) 112 - 174 sec [facility] Blood 01/20/2024 1:16 PM CDT 01/22/2024 8:07 AM CDT Stan Treviño MD LAB POCT ORDERABLES - DEVICE Final Result [facility] Department [place] [address] * (ABNORMAL) POC Blood Gas and Chemistries, Arterial - (01/20/2024 1:15 PM CDT) pH, Art POC 7.40 7.35 - 7.45 pCO2, Art POC 31(L) 35 - 45 mmHg [facility] pO2, Art POC 207(H) 83 - 108 mmHg [facility] Na, POC 143 135 - 145 mmol/L [facility] K POC 4.7 3.3 - 4.9 mmol/L [facility] Comment: Interpretive Data Not all point of care methods assess for hemolysis. Confirm with instrument and retest K+ if not consistent with clinical signs and symptoms. Current Interpretive Data was last revised on 2023. Cl, POC 116(H) 97 - 110 mmol/L [facility] Ionized Ca, POC 4.68 4.50 - 5.10 mg/dL [facility] Glucose, POC 184 70 - 199 mg/dL [facility] Lactate, POC 1.3 0.7 - 2.2 mmol/L [facility] SO2 (kristy) arterial 99(H) 90 - 95 % [facility] Base excess, POC -4.9 mmol/L [facility] HCO3, Art POC 19(L) 20 - 30 mmol/L [facility] Hct, POC 25.0(L) 36.3 - 45.3 % [facility] Total Hb, POC 8.4(L) 11.9 - 15.5 g/dL [facility] Blood 01/20/2024 1:15 PM CDT 01/20/2024 1:15 PM CDT us Stan Treviño MD LAB POCT ORDERABLES - DEVICE Final Result [facility] Department [place] [address] * (ABNORMAL) POC Blood Gas and Chemistries, Arterial - (01/20/2024 12:50 PM CDT) pH, Art POC 7.29(L) 7.35 - 7.45 pCO2, Art POC 43 35 - 45 mmHg [facility] pO2, Art POC 232(H) 83 - 108 mmHg [facility] Na, POC 143 135 - 145 mmol/L [facility] K POC 4.5 3.3 - 4.9 mmol/L [facility] Comment: Interpretive Data Not all point of care methods assess for hemolysis. Confirm with instrument and retest K+ if not consistent with clinical signs and symptoms. Current Interpretive Data was last revised on 2023. Cl, POC 115(H) 97 - 110 mmol/L [facility] Ionized Ca, POC 4.80 4.50 - 5.10 mg/dL [facility] Glucose, POC 183 70 - 199 mg/dL [facility] Lactate, POC 1.2 0.7 - 2.2 mmol/L [facility] SO2 (kristy) arterial 99(H) 90 - 95 % [facility] Base excess, POC -5.5 mmol/L [facility] HCO3, Art POC 21 20 - 30 mmol/L [facility] Hct, POC 26.0(L) 36.3 - 45.3 % [facility] Total Hb, POC 8.5(L) 11.9 - 15.5 g/dL [facility] Blood 01/20/2024 12:5 0 PM CDT 01/20/2024 12:50 PM CDT Stan Treviño MD LAB POCT ORDERABLES - DEVICE Final Result [facility] Department [place] [address] * (ABNORMAL) POCT heparin/ACT CPB (01/20/2024 12:48 PM CDT) Heparin POC 2.7 units/mL ACT, CPB 718(H) 112 - 174 sec [facility] Blood 01/20/2024 12:4 8 PM CDT 01/20/2024 12:48 PM CDT Stan Treviño MD LAB POCT ORDERABLES - DEVICE Final Result Performing Organization Address City/[facility]/ZIP Co de Phone Number [facility] [address] [address] * (ABNORMAL) POCT heparin/ACT CPB (01/20/2024 12:16 PM CDT) Pathologist [facility] Heparin POC 4.1 units/mL ACT, CPB 559(H) 112 - 174 sec [facility] Blood 01/20/2024 12:1 6 PM CDT 01/20/2024 12:16 PM CDT Stan Treviño MD LAB POCT ORDERABLES - DEVICE Final Result Performing Organization Address [facility] Co de Phone Number [facility] [place] [address] * (ABNORMAL) POC Blood Gas and Chemistries, Arterial - (01/20/2024 12:16 PM CDT) [facility] pH, Art POC 7.34(L) 7.35 - 7.45 pCO2, Art POC 40 35 - 45 mmHg [facility] pO2, Art POC 252(H) 83 - 108 mmHg [facility] Na, POC 143 135 - 145 mmol/L [facility] K POC 4.4 3.3 - 4.9 mmol/L [facility] Comment: Interpretive Data Not all point of care methods assess for hemolysis. Confirm with instrument and retest K+ if not consistent with clinical signs and symptoms. Current Interpretive Data was last revised on 2023. Cl, POC 114(H) 97 - 110 mmol/L [facility] Ionized Ca, POC 4.52 4.50 - 5.10 mg/dL [facility] Glucose, POC 199 70 - 199 mg/dL [facility] Lactate, POC 0.9 0.7 - 2.2 mmol/L [facility] SO2 (kristy) arterial 100(H) 90 - 95 % [facility] Base excess, POC -3.9 mmol/L [facility] HCO3, Art POC 22 20 - 30 mmol/L [facility] Hct, POC 26.0(L) 36.3 - 45.3 % [facility] Total Hb, POC 8.5(L) 11.9 - 15.5 g/dL [facility] Blood 01/20/2024 12:1 6 PM CDT 01/20/2024 12:16 PM CDT Stan Treviño MD LAB POCT ORDERABLES - DEVICE Final Result Performing Organization Address City/[facility]/ZIP Co de Phone Number [facility] [place] [address] * (ABNORMAL) POCT heparin/ACT CPB (01/20/2024 11:47 AM CDT) Heparin POC >4.7 units/mL ACT, CPB 733(H) 112 - 174 sec [facility] Blood 01/20/2024 11:4 7 AM CDT 01/22/2024 8:07 AM CDT Stan Treviño MD LAB POCT ORDERABLES - DEVICE Final Result Performing Organization Address City/[facility] Co de Phone Number [facility] [place] [address] * (ABNORMAL) POC Blood Gas and Chemistries, Arterial - (01/20/2024 11:46 AM CDT) pH, Art POC 7.28(L) 7.35 - 7.45 pCO2, Art POC 35 35 - 45 mmHg [facility] pO2, Art POC 310(H) 83 - 108 mmHg [facility] Na, POC 142 135 - 145 mmol/L [facility] K POC 4.4 3.3 - 4.9 mmol/L [facility] Comment: Interpretive Data Not all point of care methods assess for hemolysis. Confirm with instrument and retest K+ if not consistent with clinical signs and symptoms. Current Interpretive Data was last revised on 2023. Cl, POC 111(H) 97 - 110 mmol/L [facility] Ionized Ca, POC 4.06(L) 4.50 - 5.10 mg/dL [facility] Glucose, POC 183 70 - 199 mg/dL [facility] Lactate, POC 0.8 0.7 - 2.2 mmol/L [facility] SO2 (kristy) arterial 100(H) 90 - 95 % [facility] Base excess, POC -9.5 mmol/L [facility] HCO3, Art POC 18(L) 20 - 30 mmol/L [facility] Hct, POC 26.0(L) 36.3 - 45.3 % [facility] Total Hb, POC 8.8(L) 11.9 - 15.5 g/dL [facility] Blood 01/20/2024 11:4 6 AM CDT 01/20/2024 11:46 AM CDT Stan Treviño MD LAB POCT ORDERABLES - DEVICE Final Result [facility] Department [place] [address] [address] * (ABNORMAL) POCT heparin/ACT CPB (01/20/2024 11:14 AM CDT) Pathologist [facility] Heparin POC 4.1 units/mL ACT, CPB 538(H) 112 - 174 sec [facility] Blood 01/20/2024 11:1 4 AM CDT 01/20/2024 11:14 AM CDT Stan Treviño MD LAB POCT ORDERABLES - DEVICE Final Result [facility] [place] [address] [address] * POCT heparin dose response, CPB (01/20/2024 9:33 AM CDT) Baseline ACT POC 141 112 - 174 sec Heparin dose response slope POC 83 60 - 195 [facility] Projected Heparin Concentration POC 4.1 units/mL [facility] Blood 01/20/2024 9:33 AM CDT 01/20/2024 9:33 AM CDT us Stan Treviño MD LAB POCT ORDERABLES - DEVICE Final Result [facility] Department [place] [address] * (ABNORMAL) POC Blood Gas and Chemistries, Arterial - (01/20/2024 9:33 AM CDT) Pathologist [facility] pH, Art POC 7.39 7.35 - 7.45 pCO2, Art POC 32(L) 35 - 45 mmHg [facility] pO2, Art POC 342(H) 83 - 108 mmHg [facility] Na, POC 141 135 - 145 mmol/L [facility] K POC 3.7 3.3 - 4.9 mmol/L [facility] Comment: Interpretive Data Not all point of care methods assess for hemolysis. Confirm with instrument and retest K+ if not consistent with clinical signs and symptoms. Current Interpretive Data was last revised on 2023. Cl, POC 113(H) 97 - 110 mmol/L [facility] Ionized Ca, POC 4.83 4.50 - 5.10 mg/dL [facility] Glucose, POC 146 70 - 199 mg/dL [facility] Lactate, POC 1.0 0.7 - 2.2 mmol/L [facility] SO2 (kristy) arterial 100(H) 90 - 95 % [facility] Base excess, POC -4.8 mmol/L [facility] HCO3, Art POC 21 20 - 30 mmol/L [facility] Hct, POC 33.0(L) 36.3 - 45.3 % [facility] Total Hb, POC 11.0(L) 11.9 - 15.5 g/dL [facility] Blood 01/20/2024 9:33 AM CDT 01/20/2024 9:33 AM CDT Stan Treviño MD LAB POCT ORDERABLES - DEVICE Final Result Performing Organization Address [facility] Co de Phone Number [facility] [place] [address] [place] [address] * JULIANO Add-On For OR (01/20/2024 8:24 AM CDT) Narrative [facility] PROSOLV_CARDIOREPORT_CONS SCIMAGE - 01/20/2024 8:24 AM CDT Procedure Auto Finalized by Rule: ELENITA CV JULIANO DURING CASE OR Please see the Anesthesiologist's Procedure Note for the results. Diogo Smith MD CV ECHO PROCEDURES Final Result Performing Organization Address [facility] de Phone Number [facility] PROSOLV_CARDIOREPORT_CONS SCIMAGE * POCT glucose (01/20/2024 6:55 AM CDT) Glucose, POC 147 70 - 199 mg/dL Blood 01/20/2024 6:55 AM CDT 01/20/2024 6:55 AM CDT Stan Treviño MD LAB POCT ORDERABLES - DEVICE Final Result Performing Organization Address [facility] de Phone Number [facility] Department [place] [address] * Prepare RBC: 4 Units (01/20/2024 6:24 AM CDT) Product code [id number] [facility] Unit Number [id number] 6-E [facility] Product Blood Type APOS [facility] Dispense Status RETURNED [facility] Product code [id number] [facility] Unit Number [id number] 2-5 [facility] Product Blood Type APOS [facility] Dispense Status RETURNED [facility] Product code [id number] Unit Number [id number] 1-X [facility] Product Blood Type APOS [facility] Dispense Status RETURNED [facility] Product code [id number] [facility] Unit Number [id number] 7-H [facility] Product Blood Type APOS [facility] Dispense Status RETURNED [facility] Blood 01/20/2024 6:24 AM CDT 01/20/2024 6:23 AM CDT Narrative [facility] - 01/20/2024 4:29 PM CDT Specify Procedure:->CABG Are special requirements needed? 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, multiple vessel Type 2 diabetes mellitus (HCC) 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, with long-term current use of insulin, unspecified laterality (HCC) S/P CABG x 3 Postsurgical aortocoronary bypass status Coronary artery disease, unspecified vessel or lesion type, unspecified whether angina present, unspecified whether [place] or transplanted heart documented in this encounter Admitting Diagnoses Diagnosis Coronary artery disease Coronary atherosclerosis of unspecified type of vessel, [place] or graft Coronary artery disease due to calcified coronary lesion CAD, multiple vessel documented in this encounter Administered Medications Inactive Administered Medications - up to 3 most recent administrations Medication Order MAR Action Action Date Dose Rate Site acetaminophen (TYLENOL) tablet 1,000 mg 1,000 mg, feeding tube, Every 6 hours scheduled, First dose on Sat01/20/24 at 1815 Given 01/28/2024 12:43 PM CDT 1,000 mg Given 01/28/2024 4:14 AM CDT 1,000 mg Given 01/27/2024 5:50 PM CDT 1,000 mg amiodarone (PACERONE) tablet 200 mg 200 mg, [...] Given 01/27/2024 10:42 AM CDT 1 drop cholecalciferol (VITAMIN D-3) capsule 1,000 Units 1,000 [...] for each episode of hypoglycemia., Indications: hypoglycemic disorderIndications:hypoglycemic disorder dextrose gel in packet 15 g [...] for each episode of hypoglycemia., Indications: hypoglycemic disorderIndications:hypoglycemic disorder Given 01/23/2024 5:16 PM CDT 15 g docusate sodium (COLACE) capsule 100 mg 100 mg, oral, 2 times daily, First dose on Sat01/20/24 at 2100, Hold for diarrhea., Indications: constipationIndications:constipation Given 01/28/2024 8:38 AM CDT 100 mg Given 01/27/2024 9:16 AM CDT 100 mg Given 01/26/2024 8:28 AM CDT 100 mg furosemide (LASIX) tablet 20 mg 20 mg, oral, Daily, First dose on Dilma 01/23/24 at 0900 Given 01/28/2024 8:37 AM CDT [...] Given 01/27/2024 9:16 AM CDT 600 mg insulin glargine (LANTUS, SEMGLEE) 100 unit/mL injection 20 Units 20 Units, subcutaneous, Nightly, First dose (after last modification) on Sat01/27/24 at 2100, Do not hold if NPO. Do not mix with other insulins, Indications: Diabetes MellitusIndications:Diabetes Mellitus Given 01/27/2024 8:45 PM CDT 20 Units Left Upper Arm insulin lispro (HumaLOG, ADMELOG) 100 [...] CDT 6 Units Le ft Upper Arm latanoprost (XALATAN) 0.005 % ophthalmic solution 1 [...] 0900, Apply to affected area: back metoprolol XL (TOPROL-XL) extended release tablet 12.5 [...] Given 01/26/2024 8:27 AM CDT 5 mg papaverine injection As needed, Starting on Sat01/20/24 at 1033, Intra-Op Given 01/20/2024 10:33 AM CDT 240 mg Surgical Site polyethylene glycol (MIRALAX) packet 17 g 17 g, oral, Daily, First dose on Sat01/20/24 at 1730, Hold for diarrhea, Indications: constipationIndications:constipa tion Given 01/26/2024 8:28 AM CDT 17 g Given 01/23/2024 10:05 AM CDT 17 g Given 01/22/2024 9:40 AM CDT 17 g prochlorperazine (COMPAZINE) injection 5 mg 5 mg, intravenous, Administer over 2 Minutes, Every 6 hours PRN, nausea, vomiting, 2nd line, Starting on Sat01/21/24 at 0807 Given 01/21/2024 8:25 AM CDT 5 mg senna (SENOKOT) tablet 1 tablet 1 tablet, oral, 2 times daily, First dose on Sat01/20/24 at 2100, Hold for diarrhea., Indications: constipationIndications:constipation Given 01/28/2024 8:38 AM CDT 1 table t Given 01/27/2024 9:18 AM CDT 1 tablet Given 01/26/2024 8:28 AM CDT 1 tablet sodium chloride 0.9% irrigation As needed, Starting on Sat01/20/24 at 1033, Intra-Op Given 01/20/2024 1:25 PM CDT 1,000 mL Surgical Site Given 01/20/2024 10:34 AM CDT 2,000 mL S urgical Site Given 01/20/2024 10:33 AM CDT 2,000 mL S urgical Site timolol (TIMOPTIC) 0.5 % ophthalmic solution 1 drop 1 drop, left eye, 2 times daily, First dose on Sat01/27/24 at 0900 Given 01/28/2024 8:40 AM CDT 1 drop Given 01/27/2024 8:45 PM CDT 1 drop Given 01/27/2024 10:42 AM CDT 1 drop vancomycin (VANCOCIN) solution As needed, Starting on Sat01/20/24 at 1034, Intra-Op Given 01/20/2024 3:26 PM CDT 1,000 mg Surgical Site Given 01/20/2024 10:54 AM CDT 4,000 mg S urgical Site Given 01/20/2024 10:34 AM CDT 1,000 mg S urgical Site documented in this encounter Discontinued Medications Medication [...] Mega Wharton RN)2108 (Given - Provider: Carmita Eden RN) 0916 (Given - Provider: Katharine Finney RN)1606 (Given - Provider: Katharine Finney RN)2044 (Given - Provider: Carmita Eden RN) 1006 (Not Given - Provider: Katharine Finney [...] Katharine Finney RN)2045 (Given - Provider: Carmita Eden RN) 0840 (Given - Provider: Katharine Finney RN) cholecalciferol (VITAMIN D-3) capsule 1,000 Units 1,000 Units, oral, Daily, First dose on Sat01/27/24 at 0900, Each capsule contains 1,000 units (25 mcg) of cholecalciferol. 0916 (Given - Provider: Katharine Finney RN) 0837 (Given - Provider: Katharine Finney RN) clopidogreL (PLAVIX) tablet 75 mg 75 mg, [...] 20 mg, oral, Daily, First dose on Dilma 01/23/24 at 0900 0828 (Given - Provider: Marion [...] Eden RN) 0916 (Given - Provider: Katharine Finney RN)2043 (Given - Provider: Carmita Eden RN) 0837 [...] RN) 0917 (Given - Provider: Katharine Finney RN)2044 (Given - Provider: Carmita Eden RN) metoprolol [...] refused) 0918 (Given - Provider: Katharine Finney RN)204 (Not Given - Provider: Carmita Eden RN - Reason: Patient/family refused) 0838 (Given - Provider: Katharine Finney RN) timolol (TIMOPTIC) 0.5 % ophthalmic solution 1 drop(Linked Group 1) 1 drop, left eye, 2 times daily, First dose on Sat01/27/24 at 0900 1042 (Given - Provider: Katharine Finney RN)2045 (Given - Provider: Carmita Eden RN) 0840 (Given - Provider: Katharine Finney [...] Starting on Sat01/22/24 at 0727, Indications: Pain 0827 (Given - Provider: Marion Aaron)2108 (Given - Provider: Carmita Eden, CAPRI) 2100 (Given - Provider: Carmita Eden RN) prochlorperazine (COMPAZINE) injection 5 mg 5 mg, [...] 4 01/2701/25/2024 amiodarone (PACERONE) tablet 400 mg 3 01/2701/25/2024 metoprolol XL (TOPROL-XL) ex tended release tablet 12.5 mg 1 01/28/2024 brimonidine (ALPHAGAN) 0.2 % ophthalmic solution 1 drop 1 01/27/2024 cholecalciferol (VITAMIN D-3 ) capsule 1,000 Units 1 01/27/2024 insulin glargine (LANTUS, SE MGLEE) 100 unit/mL injection 20 Units 1 01/27/2024 insulin lispro (HumaLOG, ADM ELOG) 100 unit/mL injection 0-4 Units 2 01/27/2024 01/21/2024 insulin lispro (HumaLOG, ADM ELOG) 100 unit/mL injection 0-5 Units 3 01/27/2024 01/21/2024 insulin lispro (HumaLOG, ADM ELOG) 100 unit/mL injection 6 Units 1 01/27/2024 latanoprost (XALATAN) 0.005 % ophthalmic solution 1 drop 1 01/27/2024 timolol (TIMOPTIC) 0.5 % oph thalmic solution 1 drop 1 01/27/2024 insulin glargine (LANTUS, SE MGLEE) 100 unit/mL injection 24 Units 1 01/26/2024 amiodarone (NEXTERONE) 150 m g/100 mL (1.5 mg/mL) in dextrose (premix) 150 mg 1 01/25/2024 amiodarone in dextrose (NEXT ERONE) 360 mg/200 mL (1.8 mg/mL) infusion (premix) 1 01/25/2024 potassium chloride ER (KLOR- CON) extended release tablet 40 mEq 1 01/25/2024 lidocaine (ASPERCREME) 4 % patch 2 patch 2 01/24/2024 01/22/2024 metoprolol tartrate (LOPRESS OR) immediate release tablet 12.5 mg 1 01/24/2024 metoprolol tartrate immediat e release capsule 6.25 mg 3 01/24/2024 01/20/2024 furosemide (LASIX) tablet 20 mg 1 insulin lispro (HumaLOG, ADM ELOG) 100 unit/mL injection 10 Units 2 01/23/2024 01/21/2024 insulin lispro (HumaLOG, ADM ELOG) 100 unit/mL injection 8 Units 1 01/23/2024 lactulose 0.67 gram/mL oral solution 20 g 1 01/23/2024 sodium phosphate - potassium phosphate (K-PHOS NEUTRAL) tablet 250 mg 1 01/23/2024 guaiFENesin ER (MUCINEX) ext ended release tablet 600 mg 1 01/22/2024 oxyCODONE (ROXICODONE) tablet 5 mg 2 202301/20/2024 clopidogreL (PLAVIX) tablet 75 mg 1 024 dextrose (D10W) 10% bolus 250 mL 3 01/21/20 24 01/20/2024 dextrose gel in packet 15 g 3 01/21/2024 01/20/2024 glucagon injection 1 mg 2 01/21/2024 09/0 01/2024 insulin glargine (LANTUS, SE MGLEE) 100 unit/mL injection 14 Units 1 01/21/2024 insulin glargine (LANTUS, SE MGLEE) 100 unit/mL injection 32 Units 1 01/21/2024 insulin lispro (HumaLOG, ADM ELOG) 100 unit/mL injection 0-10 Units 2 01/21/2024 insulin lispro (HumaLOG, ADM ELOG) 100 unit/mL injection 5 Units 1 01/21/2024 prochlorperazine (COMPAZINE) injection 5 mg 1 01/21/2024 acetaminophen (TYLENOL) tablet 1,000 mg 1 0 01/20/2024 aspirin enteric coated tablet 81 mg 1 01/19 atorvastatin (LIPITOR) tablet 40 mg 1 01/19 Carrier Fluids for Secondary Infusion - 0.9% Sodium Chloride 1 01/20/2024 ceFAZolin (ANCEF) 2,000 mg/2 0 mL in sterile water (premix) 2,000 mg 2 01/20/2024 chlorhexidine (PERIDEX) 0.12 % solution 15 mL 2 01/20/2024 DOBUTamine in dextrose 5% (D OBUTREX) 1,000 mg/250 mL (4,000 mcg/mL) infusion (premix) 2 01/20/2024 docusate (COLACE) 10 mg/mL o ral liquid 100 mg 1 01/20/2024 docusate sodium (COLACE) capsule 100 mg 1 0 01/20/2024 famotidine (PEPCID) 20 mg/50 mL in sodium chloride 0.9% (premix) 20 mg 2 01/20/2024 HYDROmorphone (DILAUDID) injection 0.2 mg 1 01/20/2024 insulin lispro (HumaLOG, ADM ELOG) 100 unit/mL injection 1-5 Units 1 01/20/2024 insulin regular bolus from bag 4-10 Units 1 01/20/2024 insulin regular bolus from bag 4-6 Units 1 01/20/2024 insulin regular in 0.9% sodi um chloride (MYXREDLIN) 100 unit/100 mL (1 unit/mL) infusion (premix) 1 01/20/2024 Lactated Ringer's (LR) infusion 2 4 levothyroxine (SYNTHROID) tablet 88 mcg 1 0 01/20/2024 norepinephrine in dextrose 5 % (LEVOPHED) 8,000 mcg/250 mL (32 mcg/mL) infusion (premix) 1 01/20/2024 ondansetron (ZOFRAN) injection 4 mg 1 01/19 polyethylene glycol (MIRALAX) packet 17 g 1 01/20/2024 potassium chloride 20 mEq/50 mL in sterile water (premix) 20 mEq 1 01/20/2024 potassium phosphates 20 mmol in sodium chloride 0.9% 500 mL IVPB 1 01/20/2024 propofol (DIPRIVAN) 10 mg/mL infusion 1 01/2024 senna (SENOKOT) tablet 1 tablet 1 4 senna 1.76 mg/mL syrup 8.8 mg 1 01/20/2024 sodium chloride 0.9% flush 0.5-20 mL 1 01/2024 sodium chloride 0.9% flush 10-30 mL 1 01/19 sodium chloride 0.9% solution 2 01/20/2024 vancomycin 1,000 mg/50 mL in sterile [...] is undergoing Ring Surveillance for admission to [facility]. CAPRI Tol[facility] 01/21/2024 01/21/2024 02/04/2024 3:05 AM C DT documented as of this encounter Care Teams Biomedical Instrument Technician Relationship Specialty Start Date End Date Elpidio Serrato MD PCP - General Internal Medicine 06/09/18 documented as of this encounter
--- OUTSIDE RECORDS SUMMARY | 2024-04-29 14:06 | XMS_ITS | Encounter Summary ---
Author Organization [facility] Address [address] [place] [address] Phone Care Team Providers Care Herpetologist Name Role Phone Elpidio Serrato MD Primary Care Provider [phone] Encounter Details Date Type Department Care Team (Late st Contact Info) Description 12/04/2023 Telephone [facility] Cardiology [address] [place] [address] [place] [id number] Kvng Gibson MD [address] [place], [place] [id number] Social History Tobacco Use Types Packs/Day Years [...] on file 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 She is have CT surgery testing on 12/11. Will cancel her appt for 12/09 and reschedule once results are reviewed. Pt agreeable to plan. * Telephone Encounter - Kvng Gibson MD - 12/04/2023 10:59 AM CDT No * Telephone Encounter - Nori Ramirez RN - 12/04/2023 10:45 AM CDT Do you want any labs prior to her 12/09 appointment? * Telephone Encounter - Jonelle Menon - 12/04/2023 10:34 AM CDT Arthur Patient is calling in regards to speaking to a nurse about seeing if she should be getting labs before her appt coming up. documented in this encounter Plan of Treatment Not on file documented as of this encounter Visit Diagnoses Not on filedocumented in this encounter Care Teams Herpetologist Relationship Specialty Start Date End Date Elpidio Serrato MD PCP - General Internal Medicine 06/09/18 documented as of this encounter
--- OUTSIDE RECORDS SUMMARY | 2024-04-29 14:06 | XMS_ITS | Encounter Summary ---
Author Organization [facility] Address [address] [facility] [address] [place] [address] Phone Care Team Providers Care Disaster Recovery Consultant Name Role Phone Elpidio Serrato MD Primary Care Provider [phone] Reason for Referral * Procedure (Routine) - Closed Specialty Diagnoses / Procedures Referred By Constantino alvarado Referred To Contact Pulmonology Diagnoses Coronary artery disease involving [place] heart, unspecified vessel or lesion type, unspecified whether angina present Encounter for preprocedural cardiovascular examination Procedures Pulmonary Function Test -[facility] PFT Lab- [facility]-8[facility]; Standard; Spirometry, Spirometry w/bronchodilator, DLCO and Lung Volumes Stan Treviño MD [address] [facility] [id number] [place] [address] Phone: tel: fax: Referral ID Status Reason Start Date Expiration Date Visits Re quested Visits Authorized [id number] Closed 12/04/2023 01/02/2025 1 1 Reason for Visit * Procedure (Routine) - Closed Specialty Diagnoses / Procedures Referred By Constantino alvarado Referred To Contact Pulmonology Diagnoses Coronary artery disease involving [place] heart, unspecified vessel or lesion type, unspecified whether angina present Encounter for preprocedural cardiovascular examination Procedures Pulmonary Function Test -[facility] PFT [facility]- [facility]; Standard; Spirometry, Spirometry w/bronchodilator, DLCO and Lung Volumes Stan Treviño MD [address] [facility] [id number] [place] [address] Phone: tel: fax: Referral ID Status Reason Start Date Expiration Date Visits Re quested Visits Authorized [id number] Closed 12/04/2023 01/02/2025 1 1 Encounter Details Date Type Department Care Team (Latest Contact Info) Description 12/12/2023 7:58 AM CDT - 12/12/2023 11:59 PM CDT Hospital Encounter [facility] Pulmonary [address] [place] [address] Coronary artery disease involving [place] heart, unspecified vessel or lesion type, unspecified whether angina present; Encounter for preprocedural cardiovascular examination Discharge Disposition: Discharge to home or self [...] on file 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 Gender Identity Female 05/13/2021 4:21 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 Sexual Orientation Not on file documented [...] 90 tablet/chew tab 3 4 11/17/19 25 latanoprost (XALATAN) 0.005 % ophthalmic solutionIndications:P rimary open angle glaucoma (POAG) of both eyes, moderate stage INSTILL 1 DROP INTO BOTH EYES NIGHTLY 7.5 mL 3 4 pen needle, diabetic (BD Ultra-Fine Hailee Pen Needle) 32 gauge x 5/32 needleIndications: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, with long-term current use of insulin, unspecified laterality (HCC) Use 4X daily 300 each 3 3 empagliflozin (Jardiance) 10 mg tabletIndications:Typ e 2 diabetes mellitus (HCC) Take 1 tablet (10 mg total) by mouth daily 90 tablet 3 3 01/28/20 24 ergocalciferol (VITAMIN D) 50,000 unit capsule TAKE 1 CAPSULE BY MOUTH ONCE WEEKLY 12 capsule 1 4 03/30/20 24 furosemide (LASIX) 20 mg tablet Take 1 tablet (20 mg total) by mouth daily 30 tablet 11 4 01/17/20 24 insulin aspart (NovoLOG) 100 unit/mL (3 mL) pen for injection Inject 12 Units under the skin 3 (three) times a day 45 mL 2 4 01/28/20 24 insulin glargine (BASAGLAR) 100 unit/mL (3 mL) pen for injectionIndications: 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, with long-term current use of insulin, unspecified laterality (HCC) Inject 50 Units under the skin daily before breakfast 45 mL 3 3 01/28/20 24 insulin lispro (HumaLOG, ADMELOG) 100 unit/mL vial for injectionIndications: type 2 diabetes mellitus Inject 10 Units under the skin 3 (three) times a day before meals Plus sliding scale 01/28/20 levothyroxine (SYNTHROID) 88 mcg tablet TAKE 1 TABLET BY MOUTH EVERY DAY 90 tablet 3 3 04/07/20 24 metFORMIN (GLUCOPHAGE) 500 mg tabletIndications:Typ e 2 diabetes mellitus (HCC) Take 1 tablet (500 mg total) by mouth daily 90 tablet 3 3 02/14/20 24 nitroglycerin (NITROSTAT) 0.4 mg SL tabletIndications:Con gestive heart failure, unspecified HF chronicity, unspecified heart failure type (HCC) Place 1 tablet (0.4 mg total) under the tongue every 5 (five) minutes as needed for chest pain 90 tablet 1 4 01/28/20 24 semaglutide (OZEMPIC) 2 mg/dose (8 mg/3 [...] Procedure Name Priority Date/Time Associated Diagnosis Comments PULMONARY FUNCTION TEST (PFT) Routine 12/12/2023 8:27 AM CDT Coronary artery disease involving [place] heart, unspecified vessel or lesion type, unspecified whether angina present Encounter for preprocedural cardiovascular examination documented in this encounter Results * Pulmonary Function Test - (12/12/2023 8:27 AM CDT) FVC PRE 2.08 L [facility] FVC %PRE PRED 91 % [facility] FEV1 PRE 1.66 L [facility] FEV1 %PRE PRED 94 % [facility] FEV1/FVC PRE 80.0 % [facility] FRC PL PRE 2.18 L [facility] FRC PL %PRE PRED 89 % [facility] RV PRE 1.72 L [facility] RV %PRE PRED 85 % [facility] TLC PRE 3.90 L [facility] TLC %PRE PRED 90 % [facility] DLCO PRE 15.6 ml/min/mmH g [facility] DLCO %PRE PRED 94 % [facility] Anatomical Region Laterality Modality PFT 12/12/2023 8:13 AM CDT Narrative 12/14/2023 4:01 PM CDT PFT performed at:->[facility] Adult PFT Lab- CAM-8D Procedure:->Standard Standard:->Spirometry, Spirometry w/bronchodilator, DLCO and Lung [...] and %HbO2 is age dependent. However, the [facility] Pulmonary Function Laboratory defines hypoxemia as a PaO2 <56 mm Hg or a %HbO2 <89%. Stan Treviño MD PFT ORDERABLES Final Result documented in this encounter Visit Diagnoses Diagnosis Coronary artery disease involving [place] heart, unspecified vessel or lesion type, unspecified whether angina present Encounter for preprocedural cardiovascular examination documented in this encounter Care Teams Disaster Recovery Consultant Relationship Specialty Start Date End Date Elpidio Serrato MD PCP - General Internal Medicine 06/09/18 documented as of this encounter
--- OUTSIDE RECORDS SUMMARY | 2024-04-29 14:06 | XMS_ITS | Encounter Summary ---
Author Organization [facility] Healthcare Address [address] [place] [address] Care Team Providers Care Food Management Aide Name Role Phone Elpidio Serrato MD Primary Care Provider [phone] Reason for Referral * Cardiology (Routine) - Authorized Specialty Diagnoses / Procedures Referred By Constantino alvarado Referred To Contact Diagnoses Preoperative testing Procedures ECG 12 lead Aruna Land NP [address] [facility] [id number] [place] [address] Phone: tel: fax: [facility] [address] [place] [address] Referral ID Status Reason Start Date Expiration Date V isits Requested Visits Authorized [id number] Authorized 01/17/2024 02/15/2025 1 1 Reason for Visit * Auth/Cert (Routine) Specialty Diagnoses / Procedures Referred By Contqi t Referred To Contact Diagnoses Coronary artery disease, unspecified vessel or lesion type, unspecified whether angina present, unspecified whether [place] or transplanted heart Coronary artery disease, unspecified vessel or lesion type, unspecified whether angina present, unspecified whether [place] or transplanted heart [I25.10] Procedures NJ CABG W/ARTERIAL GRAFT THREE ARTERIAL GRAFTS NJ NDSC SURG W/VIDEO-ASSISTED HARVEST VEIN CABG 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 x3 OROZCO VEIN 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 Referral ID Status Reason Start Date Expiration Date Visits Re quested Visits Authorized [id number] 1 1 Encounter Details Date Type Department Care Team (Latest Contact Info) Description 01/17/2024 11:00 AM CDT Pre-Admission Testing [facility] Center for Preoperative Assessment and Planning [facility] ([facility]) [address] [place] [id number] Pre-operative exam (Primary Dx); Preoperative testing; Chronic kidney disease, unspecified CKD stage Anesthesia Record Procedure Summary Procedure Name Responsible [...] handoff: phase II 1637 An Stop Meds * Agents No agents on file. * Blood No blood administrations on file. Lines, Drains, and Airways Type Details Placement Removal Peripheral IV Placement Date: 01/20/24; Placement Time: 0657; Catheter Size: 20 G; Orientation: Right; Location: Hand; Site Prep: Chlorhexidine; Technique: Anatomical landmarks; Insertion Attempts: 2; Patient Tolerance: Tolerated well 01/20/24 0657 by Joanna Ramos RN Wound 01/20/24; 1120; Incision; Leg; Right, Upper, Lower; [facility] SITE 01/20/24 1120 by Ben Hi Wound 01/20/24; 1127; Incision; Leg; Left, Upper, Lower; EV SITE 01/20/24 1127 by Ben Hi Wound 01/20/24; 1524; Incision; Sternum; Anterior 01/20/24 1524 by Ben Hi Arterial Line Placement Date: 01/20/24; Placemnt Time: 0838; Size: 20 G; Orientation: Left; Location: Femoral; [...] Chest Tube Placement Date: 01/20/24; Placement Time: 1432; Inserted by: DR. 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 Sexual Orientation Not on file documented as of this encounter Last Filed Vital Signs Vital Sign Reading Time Taken Comments Blood Pressure 123/62 01/17/2024 11:34 AM CDT Pulse 73 01/17/2024 11:30 AM CDT Temperature - - Respiratory Rate 16 01/17/2024 11:3 0 AM CDT Oxygen Saturation 96% 01/17/2024 11: 30 AM CDT Inhaled Oxygen Concentration - - Weight 90.6 kg (199 lb 11.8 oz) 024 10:55 AM CDT Height 149.9 cm (4' 11 ) 01/17/2024 10: 55 AM CDT Body Mass Index 40.34 01/17/2024 10:55 AM CDT documented in this encounter Miscellaneous Notes * Perioperative Nursing Note - Mellisa Abreu RN - 01/17/2024 11:00 AM CDT Center for Preoperative Assessment and Planning Perioperative Nursing Note CPAP Clinic at [facility] ([facility]) Date: 01/17/24 This assessment was completed with the patient. Vitals: 01/17/24 1055 01/17/24 1130 01/17/24 1134 BP: 125/61 123/62 BP Location: Right arm Left arm Patient Position: Sitting Pulse: 73 Resp: 16 SpO2: 96% Weight: 90.6 kg (199 lb 11.8 oz) Height: 149.9 cm (4' 11 ) CHEST CIRCUMFERENCE: 43 in Social History Tobacco Use Smoking Status Never Smokeless Tobacco Never Substance and Sexual Activity Drug Use Never Alcohol Use Q1: How often do you have a drink containing alcohol?: Never Q2: How many drinks containing alcohol do you have on a typical day when you are drinking?: Patientdoes not drink Q3: How often do you have six or more drinks on one occasion?: Never Outpatient Medications Marked as Taking for the 01/17/24 encounter (Pre-Admission Testing) with [facility] CPAP NURSE Medication Sig Dispense Refill acetaminophen ER (TYLENOL) [...] mouth every morning) 90 tablet/chew tab 3 chlorhexidine (HIBICLENS) 4 % external liquid Apply topically daily as needed for wound care For 5 days prior to procedure (Patient taking differently: Apply 1 Application topically daily For 5 days prior to procedure) 236 mL 0 chlorhexidine (PERIDEX) 0.12 % solution Apply 15 mL to the mouth or throat 2 (two) times a day (Patient taking differently: Apply 15 mL to the mouth or throat 3 (three) times a day) 473 mL 0 empagliflozin (Jardiance) 10 mg tablet Take 1 tablet (10 mg total) by mouth daily (Patient taking differently: Take 1 tablet (10 mg total) by mouth every morning Stopped for surgery) 90 tablet 3 ergocalciferol (VITAMIN D) 50,000 unit capsule TAKE 1 CAPSULE BY MOUTH ONCE WEEKLY (Patient taking differently: Take 1 capsule (50,000 Units total) by mouth once a week Saturday) 12 capsule 1 furosemide (LASIX ORAL) Take 10 mg by mouth every morning insulin glargine (BASAGLAR) 100 unit/mL (3 mL) pen for injection Inject 50 Units under the skin daily before breakfast (Patient taking differently: Inject 50 Units under the skin every morning) 45 mL3 insulin lispro (HumaLOG, ADMELOG) 100 unit/mL vial for injection Inject 10 Units under the skin 3 (three) times a day before meals Plus sliding scale latanoprost (XALATAN) 0.005 % ophthalmic solution INSTILL 1 DROP INTO BOTH EYES NIGHTLY (Patient taking differently: Administer 1 drop into both eyes nightly) 7.5 mL 3 levothyroxine (SYNTHROID) 88 mcg tablet TAKE 1 TABLET BY MOUTH EVERY DAY (Patient taking differently: Take 1 tablet (88 mcg total) by mouth every morning) 90 tablet 3 metFORMIN (GLUCOPHAGE) 500 mg tablet Take 1 tablet (500 mg total) by mouth daily (Patient taking differently: Take 1 tablet (500 mg total) by mouth every morning) 90 tablet 3 mupirocin (BACTROBAN) 2 % ointment Apply to each nostril 2 (two) times a day For 5 days prior to procedure (Patient taking differently: Apply 1 Application to each nostril 2 (two) times a day For 5 days prior to procedure) 22 g 0 semaglutide (OZEMPIC) 2 mg/dose (8 mg/3 mL) pen injector injection Inject 2 mg under the skin once a week (Patient taking differently: Inject 2 mg under the skin once a week Saturday On hold for surgery) 9 mL 3 Implants Lens [employer] Lens Iol Posterior Biconvex Optic Single Piece Envista 6.0x12.5 +18.0d Hydrophobic Acrylic [id number] - [id number] - [id number] - Implanted (Right) Lens Inventory item: [employer] Lens Iol Posterior Biconvex Optic Single Piece Envista 6.0x12.5 +18.0d Hydrophobic Acrylic [id number] Model/Cat number: [id number] Serial number: [id number] Mixer Operator Raw Salt: [employer] Device identifier: [id number] Device identifier type: GS1 As of 06/14/2022 Status: Implanted [employer] Lens Iol Posterior Biconvex Optic Single Piece Envista 6.0x12.5 +18.0d Hydrophobic Acrylic [id number] - [id number] - [id number] - Implanted (Left) Eye Inventory item: [employer] Lens Iol Posterior Biconvex Optic Single Piece Envista 6.0x12.5 +18.0d Hydrophobic Acrylic [id number] Model/Cat number: [id number] Serial number: [id number] Mixer Operator Raw Salt: [employer] Lot number: [id number] Device identifier: [id number] Device identifier type: GS1 As of 08/16/2022 Status: Implanted SKIN Wound (LDAs) Type of Wound (LDA): (pt denies) SCREENINGS Pain Assessment: No/denies pain STOP-Bang Total Score: 4 Castellanos Fall Risk Score (Retired): 65 Kathrin index score: 95 Have you ever been in or are you currently in a harmful physical or emotional relationship or is someone making you feel afraid or unsafe?: Denies AD8 Dementia Score: 0 Short Blessed Total Score: 0 NUTRITION YORK Nutrition and Function History Questionnaire Is BMI < 20?: No Have you lost any weight in the past 6 months without trying? : No Have you eaten < 50% of normal in the past 2 weeks without trying?: No Have you experienced any of the following in the past month?: No Symptom Score: 0 Has your activity level decreased over the past 6 months or do you use an assistive device such as a walker, cane, or wheelchair?: Yes Total Score: 1 PATIENT CARE PLANNING Advance Directives (For Healthcare) Have you reviewed your Advance Directive and is it valid for this stay?: Yes Advance Directive: Patient has advance directive, copy not in chart Advance Directive not in Chart: Copy requested from family Information Provided on Healthcare Directives: No Communication/Real Estate Attorney Needs Communication Needs: Glasses Assistive Devices/DME: Eyeglasses, Cane Hearing - Right Ear: Functional Hearing - Left Ear: Functional Discharge Planning Type of Residence: Private residence Living Arrangements: Children Support Systems: Children Assistance Needed: DOS- daughter with her Patient expects to be discharged to: Private residence MANAGER CRISIS NO ADDITIONAL COMMENTS/ FOLLOW UP * Pre-Procedure Instructions - Mellisa Abreu RN - 01/17/2024 11:00 AM CDT [facility]ENTER FOR PREOPERATIVE ASSESSMENT AND PLANNING (CPAP) PRE-SURGICAL NURSING INSTRUCTIONS Clinic Assessment General Information Discussed with Patient: Surgery location provided to patient. Arrival time and surgical time will be provided to the patient by their surgeon. You should wear clothing that is clean, loose, comfortable and easy to get in and out of on the dayof surgery. Remove nail coverings, artificial nails and nail kinyarwanda prior to the day of surgery. This is to lower your risk of infection and to allow the day of surgery team to monitor your oxygen levels. You should leave your valuables and any jewelry at home. No metal or piercings are allowed in the operating room. You should bring your insurance card, a photo ID (example: [employer] Outreach Specialist's License) and a method of payment for any insurance copay, deductible or copay for discharge medications. You should bring a complete, up-to-date, list of all your medications on the day of surgery, including any over the counter medications or supplements you may take. Please note on your medication list, the last date & time you took each medication. The healthcare team, on the day of surgery, will ask for this information. You should bring your Advanced Directive and/or Living Will with you on the day of surgery if you have not verified a copy is already in your Epic Chart. PREVENTING INFECTION (DECOLONIZATION): Decolonization is the use of a topical antiseptic soap and sometimes a nasal ointment to remove bacteria (germs) from the skin's surface. Antiseptic soap: Chlorhexidine gluconate or CHG (brand name: Hibiclens??) Before surgery, your entire body must be thoroughly cleaned. CHG helps to reduce the bacteria on your skin. You may be given one or more bottles of CHG or you may be asked to obtain from your preferred pharmacy. Be sure to ask your pharmacist if you need help finding this product. Nasal ointment: Mupirocin (brand name: Bactroban)- This will only be ordered for the 5 Day Bathing Protocol. Your surgeon may also prescribe a topical ointment that is rubbed inside each of the nostrils to reduce the bacteria in your nose. Mupirocin ointment requires a prescription. If needed, it will be prescribed by your surgeon and obtained from your preferred pharmacy. SHOWERING WITH ANTISEPTIC SOAP (CHG) What You Need For Each Shower 60 mL (?? cup) of CHG 2 clean washcloths Below is the Pre-Surgical Bathing Protocol you should follow for your surgery. If your surgeon provides you different bathing instructions, please follow your surgeon's orders. 5 Day CHG Bathing & Nasal Ointment (Mupirocin) Protocol The following bathing instructions were discussed with the patient. Patient provided detailed scrubinstructions via A Guide for Patients Having Surgery: Your Pathway to Excellent Care, pages 7-10. Patients may also access the guide via the web link: [email or web address]. Patient stated understanding of the bathing instructions. Other Important Handouts/Education Discussed with Patient: Guide for Patients Having Surgery: Your Pathway to Excellent Care. Reviewed and provided document to patient. Patient stated understanding. Nutrition Education Handout, Fuel Up For Surgery. Reviewed and provided document to patient. Patient stated understanding. Fall preventions/risk education provided. Reviewed and provided below document(s) to patient. Patient stated understanding. Safety Tips for Preventing Falls in the Hospital and at Home. Blood Thinners & Falls: Keeping You Safe. Travel/Exposure Screening: Travel Screening Have you traveled outside the [place] in the last 6 months?: No Exposure Screening Have you been exposed to anyone who is sick in the last 30 days?: No Have you been exposed to or tested positive for COVID-19 within the last 10 days?: No Infectious Disease Screening Are you having any of the following:: None As of 03/06/2022 any COVID TESTING required for surgery will be set up by your surgeon's office. Please reach out to your surgeon's office if you develop any COVID symptoms, test positive for COVID or are exposed to a COVID positive person. All patients should read below section: Information on [facility] CAM & the Orthopedic Center: Please view [email or web address] (Patient & Visitor Information) for additional details regarding Advanced Directive forms, AWARE, directions, parking information, lodging, Internet access, dining and more. For MyChart information, to activate account or password recovery, please go to [email or web address] or call [phone] (toll-free: [phone]), Sat- Saturday 8am-5pm. Information for Suicide Prevention: National Suicide Prevention Lifeline (0-254-394-ELWG (8609)) orcall or text 827. Chat resources: [email or web address]. Surgery Times: For patients having surgery @ [facility] or [facility] ([facility]), if your surgeon's office has not notified you of your surgery time by NOON THE BUSINESS DAY BEFORE your surgery, please call [phone] and ask for your surgeon's office Dr. Treviño. The Center for Preoperative Assessment & Planning (CPAP) does not provide arrival times for theday of surgery or provide the duration of surgery. This information is provided by your surgeon's office or by the center where you are having surgery. We appreciate your understanding. * Pre-Procedure Instructions - Aruna Land NP - 01/17/2024 11:00 AM CDT Center for Preoperative Assessment and Planning CPAP Clinic Location: [facility] The night before your surgery: * Do not eat anything after midnight the night before your procedure. The morning of your surgery: * You may have clear liquids on your surgery day. You must stop drinking two hours before you arrive to the surgery facility. Acceptable clear liquids include water, clear sports drinks, black coffee, tea, or clear soda. DO NOT drink any milk, creamer, or alcohol. * Your surgeon's office may have provided additional instructions or restrictions. Please follow those instructions. * You may brush your teeth and rinse your mouth out. * Do not glue your dentures. * Do not wear jewelry, body piercings, makeup, hairpins, false eyelashes or contact lenses to the hospital. * Leave any valuables at home or with your family. * If you have an implantable device with a remote, bring the remote with you on the day of surgery. * If you use home oxygen, bring your portable oxygen tank with you on the day of surgery * If having surgery at [facility], you may want to bring a credit card if you want to use our Mobile Pharmacy for your discharge medications. Mobile pharmacy is not available at [facility], the Orthopedic Center, or the [place] for [facility]. If you are a smoker: * You should prepare for your surgery and recovery well ahead of time. Stop smoking at least 2 weeks before surgery to help prevent infection and help your body recover faster. Ask your surgeon for tools to help you quit or call 2-414-UVVDFUX ( ). Visit Smokefree.gov for more information. * Do not smoke during the 24 hours before surgery. If you have Diabetes: * You may also need less insulin than usual. * If you use insulin and are placed on a liquid diet, be sure to drink some liquids that contain sugar. * If your blood sugar is low before you come to the hospital, drink a small amount of sugar water or clear juice like apple or cranberry juice. DO NOT drink orange or pineapple juice. These are not clear liquids. * If you take insulin be sure to read the Medicine Instructions. * Please call your surgeon and/or the CPAP Clinic if you have any questions. Instructions For Your Insulin: Instructions for your GLARGINE (LANTUS / TOUJEO / BASAGLAR) insulin: take 40 units the morning of your surgery Do NOT take SHORT-ACTING insulin (ASPART / NOVOLOG / FIASP, LISPRO / HUMALOG) on the day of surgery. Make sure you check your blood sugar regularly. If your blood sugar is too low, you can drink cleardrinks like apple juice or sugar water. Instructions For Your Medications: Pre-Surgery Instructions: Medication Instructions acetaminophen ER (TYLENOL) 650 mg 8 hr tablet Take on day of surgery if needed aspirin 81 mg enteric coated tablet Take morning of surgery atorvastatin (LIPITOR) 40 mg tablet Take morning of surgery brimonidine-timoloL (Combigan) 0.2-0.5 % ophthalmic solution Take morning of surgery calcium carbonate (TUMS) 500 mg (200 mg elemental calcium) chewable tablet Don't take on day of surgery chlorhexidine (HIBICLENS) 4 % external liquid Take morning of surgery chlorhexidine (PERIDEX) 0.12 % solution Take morning of surgery empagliflozin (Jardiance) 10 mg tablet Stop taking 4 days prior to surgery ergocalciferol (VITAMIN D) 50,000 unit capsule Don't take on day of surgery furosemide (LASIX ORAL) Don't take on day of surgery glucose 4 gram chewable tablet Take on day of surgery if needed insulin glargine (BASAGLAR) 100 unit/mL (3 mL) pen for injection Take 40 units the morning of surgery insulin lispro (HumaLOG, ADMELOG) 100 unit/mL vial for injection Don't take on day of surgery latanoprost (XALATAN) 0.005 % ophthalmic solution Take the evening prior to surgery levothyroxine (SYNTHROID) 88 mcg tablet Take morning of surgery metFORMIN (GLUCOPHAGE) 500 mg tablet Don't take on day of surgery mupirocin (BACTROBAN) 2 % ointment Take the evening prior to surgery semaglutide (OZEMPIC) 2 mg/dose (8 mg/3 mL) pen injector injection Stop taking 1 week prior to surgery insulin aspart (NovoLOG) 100 unit/mL (3 mL) pen for injection Don't take on day of surgery nitroglycerin (NITROSTAT) 0.4 mg SL tablet Take on day of surgery if needed Your surgeon will tell you IF YOU SHOULD STOP the following medications and WHEN TO STOP taking them. Do not stop taking them on your own without being told to do so: Aspirin General Instructions For Medications: * Stop all of these medications 5 days prior to your surgery: excedrin, motrin, advil, ibuprofen, aleve, naproxen, meloxicam, celebrex, celecoxib. For medications that you are instructed to take on the morning of surgery, take the medications with a few sips of water. Stop all of these medications 7-14 days prior to your surgery: Vitamin E, Herbal medicines, Diet Pills If you take aspirin, do not stop taking it unless you were instructed to do so. If you have pain, you may take tylenol (acetaminophen). Do not take more than 6 tablets or 3000 mg (3 g) within a 24 period. Call your surgeon and the CPAP clinic if any of the following happens before surgery: Any changes in your health You have a fever You have any signs of an infection (chest, urinary tract or tooth) You have been to the Emergency Room or were in the hospital You have started taking any new medications If laboratory testing was completed during your visit, we will only contact you regarding any results that require you to take additional action prior to your planned procedure. documented in this encounter Plan of Treatment Not on file documented as of this encounter Procedures Procedure Name Priority Date/Time Associated Diagnosis Comments TYPE AND SCREEN 14 DAY Routine 12:58 PM CDT Preoperative testing EGFR Routine 01/17/2024 12:58 PM CDT Preoperative testing DIFFERENTIAL AUTO Routine 01/17/2024 12: 58 PM CDT Preoperative testing CPAP APTT ALGORITHM Routine 01/17/2024 1 2:58 PM CDT Preoperative testing URINALYSIS AND REFLEX TO MICROSCOPIC AND CULTURE Routine 01/17/2024 12:58 PM CDT Preoperative testing CBC WITH AUTO DIFFERENTIAL Routine 01/17/2024 12:58 PM CDT Preoperative testing URINALYSIS, MICROSCOPIC ONLY Routine 01/17/2024 12:58 PM CDT Preoperative testing PROTIME-INR Routine 01/17/2024 12:58 PM CDT Preoperative testing Chronic kidney disease, unspecified CKD stage COMPREHENSIVE METABOLIC PANEL Routine 01/17/2024 12:58 PM CDT Preoperative testing ECG 12-LEAD Routine 01/17/2024 11:06 AM CDT Preoperative testing documented in this encounter Results * XR Chest PA Lateral 2 View (01/17/2024 1:13 PM CDT) Anatomical Region Laterality Modality Body, Chest N/A Computed Radiogr aphy 01/17/2024 1:45 PM CDT Impressions 01/17/2024 3:13 PM CDT The current study is compared with the prior radiograph dated ??06/17/[address] 12/12/2023. ??No pulmonary consolidation. ??No pleural effusion. ??No pneumothorax. ??Heart size is within normal limits. Dictated by: Trinh Mejias MD, MPH The radiology attending physician has personally reviewed this study, and had reviewed and/or edited this written report and agrees with it. Electronically signed by: Erica Mustafa M.D. Narrative 01/17/2024 3:13 PM CDT EXAMINATION: 2 view chest radiograph Procedure Note Erica Mustafa MD - 01/17/2024 EXAMINATION: 2 view chest radiograph IMPRESSION: The current study is compared with the prior radiograph dated 06/17/[address] 12/12/2023. No pulmonary consolidation. No pleural effusion. No pneumothorax. Heart size is within normal limits. Dictated by: Trinh Mejias MD, MPH The radiology attending physician has personally reviewed this study, and had reviewed and/or edited this written report and agrees with it. Electronically signed by: Erica Mustafa M.D. us Aruna Land NP IMG XR PROCEDURES Final Resul t * (ABNORMAL) Urinalysis, microscopic only (01/17/2024 12:58 PM CDT) WBC, ur 6-10(A) 0 - 5 /HPF RBC, ur 0-2 0 - 2 /HPF [facility] Epithelial cells, squamous, ur 1-5 0 - 5 /HPF [facility] Bacteria, ur 1+(A) [facility] Mucous, ur Present(A) [facility] Hyaline casts, ur 6-10 0 - 10 /LPF [facility] Culture Reflex Comment Reflex conditions for urine culture (WBC >10) not met. [facility] Urine, clean voided 01/17/2024 12:58 PM CDT 01/17/2024 1:30 PM CDT us Aruna Land SHEET CUTTING OPERATOR LAB URINE ORDERABLES Final Re sult [facility] Department [place] [address] * (ABNORMAL) eGFR (01/17/2024 12:58 PM CDT) eGFR 56(L) >=60 mL/min/1. 73 m2 Comment: Interpretive Data [...] interpretive data was last reviewed 2021. Blood 01/17/2024 12:5 8 PM CDT 01/17/2024 1:32 PM CDT us Aruna Land SHEET CUTTING OPERATOR LAB BLOOD ORDERABLES Final Re sult [facility] Department [place] [address] * Differential, auto (01/17/2024 12:58 PM CDT) Neutrophil abs 5.4 1.5 - 6.5 K/cumm Imm gran abs 0.0 0.0 - 0.1 K/cumm [facility] Lymphocyte abs 2.3 0.8 - 3.3 K/cumm [facility] Monocyte abs 0.7 0.2 - 0.8 K/cumm [facility] Eosinophil abs 0.1 0.0 - 0.5 K/cumm [facility] Basophil abs 0.0 0.0 - 0.1 K/cumm [facility] Neutrophil pct 63.2 % [facility] Comment: Interpretive Data Percent cell count reference ranges are not reported, since discordance with absolute values may lead to misinterpretation of CBC data. Current Interpretive Data was last revised on 2017. Imm gran pct 0.1 % [facility] Comment: Interpretive Data Percent cell count reference ranges are not reported, since discordance with absolute values may lead to misinterpretation of CBC data. Current Interpretive Data was last revised on 2017. Lymphocyte pct 27.1 % [facility] Comment: Interpretive Data Percent cell count reference ranges are not reported, since discordance with absolute values may lead to misinterpretation of CBC data. Current Interpretive Data was last revised on 2017. Monocyte pct 8.3 % [facility] Comment: Interpretive Data Percent cell count reference ranges are not reported, since discordance with absolute values may lead to misinterpretation of CBC data. Current Interpretive Data was last revised on 2017. Eosinophil pct 0.9 % [facility] Comment: Interpretive Data Percent cell count reference ranges are not reported, since discordance with absolute values may lead to misinterpretation of CBC data. Current Interpretive Data was last revised on 2017. Basophil pct 0.4 % [facility] Comment: Interpretive Data Percent cell count reference ranges are not reported, since discordance with absolute values may lead to misinterpretation of CBC data. Current Interpretive Data was last revised on 2017. Blood 01/17/2024 12:5 8 PM CDT 01/17/2024 1:34 PM CDT us Aruna Land SHEET CUTTING OPERATOR LAB BLOOD ORDERABLES Final Re sult [facility] Department [place] [address] * (ABNORMAL) Urinalysis reflex to microscopic and culture Urine, clean voided (01/17/2024 12:58 PM CDT) Color, ur Straw Yellow Clarity, ur Clear Clear [facility] Specific gravity, ur 1.013 1.003 - 1.030 [facility] pH, urine 5.5 [facility] Comment: Interpretive Data ? Urine pH is affected by diet, medications, systemic acid-base disturbances, and renal tubular function. ??pH may affect urinary stone formation. ??For example, urine pH below 6.0 may help reduce the tendency for calcium phosphate stones and pH greater than 6.0 may reduce the tendency for uric acid stone formation. Source: [facility] [employer] Current Interpretive Data was last revised on 2017 Protein, ur ql Negative Negative [facility] Glucose, ur ql Negative Negative [facility] Ketones, ur Negative Negative [facility] Bilirubin, ur Negative Negative [facility] Blood, ur Negative Negative [facility] Urobilinogen, ur <2.0 <2.0 mg/dL [facility] Nitrite, ur Positive(A) Negative [facility] Leukocyte esterase, ur 2+(A) Negative [facility] UA reflex comment Reflex to microscopic UA will be performed. [facility] Urine, clean voided 01/17/2024 12:58 PM CDT 01/17/2024 1:30 PM CDT us Aruna Land SHEET CUTTING OPERATOR LAB MICROBIOLOGY - GENERAL OR DERABLES Final Result Performing Organization Address [facility] de Phone Number [facility] Department [place] [address] * CPAP aPTT algorithm (01/17/2024 12:58 PM CDT) aPTT 28 28 - 38 sec Comment: Interpretive Data Heparin therapeutic range: 66.0 - 100.0 seconds. Range based on correlation with therapeutic heparin activity range of 0.3 - 0.7 Units/mL. Current interpretive data was last revised on 2023. Blood 01/17/2024 12:5 8 PM CDT 01/17/2024 12:58 PM CDT us Aruna Land SHEET CUTTING OPERATOR LAB BLOOD ORDERABLES Final Re sult Performing Organization Address [facility] de Phone Number [facility] [place] [address] * Protime-INR (01/17/2024 12:58 PM CDT) PT 11.0 9.7 - 13.0 sec INR 1.02 0.90 - 1.20 [facility] Comment: Interpretive data Oral anticoagulant therapeutic ranges: Venous thromboembolism prophylaxis or treatment: 2.0-3.0 CARDIOLOGY Standard range: 2.0-3.0 High-intensity range: 2.5-3.5 Refer to indication-specific guidelines for appropriate target ranges for prosthetic heart valve replacement. Current interpretive data was last revised on 2019. Blood 01/17/2024 12:5 8 PM CDT 01/17/2024 12:58 PM CDT Aruna Land SHEET CUTTING OPERATOR LAB BLOOD ORDERABLES Final Re sult Performing Organization Address [facility] de Phone Number [facility] Department [place] [address] * TYPE AND SCREEN 14 DAY (01/17/2024 12:58 PM CDT) Pathologist [facility] ABO Rh A Positive Sergio, indirect Negative [facility] Blood 01/17/2024 12:5 8 PM CDT 01/17/2024 1:38 PM CDT Narrative [facility] - 01/17/2024 2:44 PM CDT Is this test being ordered in advance for a procedure?->Yes Expected date of procedure:->01/20/24 Has the patient been transfused in the past 3 months?->No Has the patient been in the past 3 months?->No Aruna Land NP LAB BLOOD BANK TEST ORDERABLE S Final Result [facility] Department [place] [address] * (ABNORMAL) CBC with auto differential (01/17/2024 12:58 PM CDT) [facility] WBC 8.5 3.8 - 9.9 K/cumm Hgb 12.2 11.9 - 15.5 g/dL [facility] Hct 38.1 35.6 - 45.5 % [facility] Plt 231 150 - 400 K/cumm [facility] MPV 10.8 9.1 - 12.3 fL [facility] RBC 4.21 3.90 - 5.20 M/cumm [facility] MCV 90.5 81.3 - 96.4 fL [facility] MCH 29.0 27.1 - 33.3 pg [facility] MCHC 32.0(L) 32.3 - 35.7 g/dL [facility] RDW CV 13.2 11.1 - 14.9 % [facility] RDW SD 43.7 35.7 - 48.1 fL [facility] NRBC abs 0.00 0.00 - 0.01 K/cumm [facility] Blood 01/17/2024 12:5 8 PM CDT 01/17/2024 1:34 PM CDT us Aruna Land SHEET CUTTING OPERATOR LAB BLOOD ORDERABLES Final Re sult [facility] Department [place] [address] * (ABNORMAL) Comprehensive metabolic panel (01/17/2024 12:58 PM CDT) Sodium 145 135 - 145 mmol/L Potassium, pl 3.5 3.3 - 4.9 mmol/L [facility] Chloride 106 97 - 110 mmol/L [facility] CO2 25 22 - 32 mmol/L [facility] Anion gap 14 2 - 15 mmol/L [facility] BUN 27(H) 6 - 25 mg/dL [facility] Creatinine 1.05 0.60 - 1.10 mg/dL [facility] Glucose 98 70 - 199 mg/dL [facility] Comment: Interpretive Data Fasting [...] interpretive data was last revised 2022. Calcium 9.8 8.5 - 10.3 mg/dL [facility] Bilirubin, total 0.6 0.1 - 1.2 mg/dL [facility] Protein, pl 7.3 6.5 - 8.5 g/dL [facility] Albumin 4.4 3.5 - 5.0 g/dL [facility] Alk phos 104 40 - 130 Units/L [facility] ALT 23 7 - 45 Units/L [facility] AST 28 10 - 45 Units/L [facility] Blood 01/17/2024 12:5 8 PM CDT 01/17/2024 1:32 PM CDT Aruna Land SHEET CUTTING OPERATOR LAB BLOOD ORDERABLES Final Re sult Performing Organization Address [facility] Co de Phone Number [facility] [place] [address] * ECG 12 lead (01/17/2024 11:06 AM CDT) Ventricular Rate EKG/Min 78 BPM [facility] Atrial Rate 78 BPM [facility] [place]-Interval (MSEC) 128 ms [facility] QRS-Interval (MSEC) 128 ms [facility] QT-Interval (MSEC) 440 ms [facility] QTc 501 ms [facility] P [place] 69 degrees [facility] R [place] -64 degrees [facility] T [place] 15 degrees [facility] Diagnosis Sinus rhythm with occasional Premature ventricular complexes Possible Left atrial enlargement Right bundle branch block Left anterior fascicular block Bifascicular block Abnormal ECG When compared with ECG of 19-JUN-2016 03:45, Right bundle branch block is new Confirmed by MAHI RACHEL M.D ([id number]) on 01/17/2024 1:22:18 PM [facility] 01/17/2024 11:0 6 AM CDT 01/17/2024 1:22 PM CDT Aruna Land SHEET CUTTING OPERATOR ECG ORDERABLES Final Result Performing Organization Address [facility] Co de Phone Number [facility] documented in this encounter Visit Diagnoses Diagnosis Pre-operative exam- Primary Unspecified pre-operative examination Preoperative testing Unspecified pre-operative examination Chronic kidney disease, unspecified CKD stage Pre-operative exam Unspecified pre-operative examination documented in this encounter Discontinued Medications Medication Sig Discontinue Reason Start Date End Da te furosemide (LASIX) 20 mg tablet Take 1 tablet (20 mg total) by mouth daily Error 10/30/2023 01/17/2024 documented as of this encounter Historical Medications * This list may reflect changes made after this encounter. furosemide (LASIX) 20 mg tabletIndications :water retention Take 0.5 tablets (10 mg total) by mouth every morning glucose 4 gram chewable tabletIndications :diabetes/ low blood sugar Take 1 tablet (4 g total) by mouth as needed for low blood sugar 01/28/2024 added in this encounter Care Teams Food Management Aide Relationship Specialty Start Date End Date Elpidio Serrato MD PCP - General Internal Medicine 06/09/18 documented as of this encounter
--- OUTSIDE RECORDS SUMMARY | 2024-04-29 14:06 | XMS_ITS | Encounter Summary ---
Author Organization [facility] Healthcare Address [address] [place] [address] Care Team Providers Care Tentering Machine Feeder Name Role Phone Elpidio Serrato MD Primary Care Provider [phone] Reason for Referral * MRI/CAT/PET Scan (Routine) - Closed Specialty Diagnoses / Procedures Referred By Latashaac t Referred To Contact Radiology Diagnoses Coronary artery disease involving [place] heart, unspecified vessel or lesion type, unspecified whether angina present Encounter for preprocedural cardiovascular examination Procedures CT Chest Abdomen Pelvis W Contrast Stan Treviño MD [address] [facility] [id number] [place] [address] Phone: tel: fax: [address] [address] Referral ID Status Reason Start Date Expiration Date Visits Re quested Visits Authorized [id number] Closed 12/04/2023 01/02/2025 1 1 Reason for Visit * MRI/CAT/PET Scan (Routine) - Closed Specialty Diagnoses / Procedures Referred By Contac t Referred To Contact Radiology Diagnoses Coronary artery disease involving [place] heart, unspecified vessel or lesion type, unspecified whether angina present Encounter for preprocedural cardiovascular examination Procedures CT Chest Abdomen Pelvis W Contrast Stan Treviño MD [address] [facility] [address] [place] [address] Phone: tel: fax: [facility] [place] [address] Referral ID Status Reason Start Date Expiration Date Visits Re quested Visits Authorized [id number] Closed 12/04/2023 01/02/2025 1 1 Encounter Details Date Type Department Care Team (Latest Contact Info) Description 12/12/2023 6:47 AM CDT - 12/12/2023 11:59 PM CDT Hospital Encounter [facility] [address] [place] [id number] Stan Treviño MD [address] [facility] [id number] [place] [address] Coronary artery disease involving skull [...] on file Legal Sex Female 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 Gender Identity Female 05/13/2021 4:21 PM MIXING 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 Sexual Orientation Not on file documented [...] Procedure Name Priority Date/Time Associated Diagnosis Comments CT CHEST ABDOMEN PELVIS W CONTRAST Schedule Routine, Read Routine (OP Routine) 12/12/2023 7:55 AM CDT Coronary artery disease involving [place] heart, unspecified vessel or lesion type, unspecified whether angina present Encounter for preprocedural cardiovascular examination documented in this encounter Results * CT Chest Abdomen Pelvis W Contrast [...] signed by: Cesar Sutton MD, PHD Stan Treviño MD IMG CT PROCEDURES Edited Resu lt - Final documented in this encounter Visit Diagnoses Diagnosis Coronary artery disease involving [place] heart, unspecified vessel or lesion type, unspecified whether angina present Encounter for preprocedural cardiovascular examination documented in this encounter Administered Medications Inactive Administered Medications - up to 3 most recent administrations Medication Order MAR Action Action Date Dose Rate Site ioversoL (OPTIRAY 350) syringe 125 mL 125 mL, intravenous, Once in imaging, contrast, Starting on Dilma 12/12/23 at 0735, For 1 dose Contrast Given 12/12/2023 7:56 AM CDT 119 mL documented in this encounter Orders Medications Ordered That Alan ht Not Have Been Administered Count Last Ordered Date First Ordered Date ioversoL (OPTIRAY 350) syringe 125 mL 1 05/2023 documented in this encounter Care Teams Tentering Machine Feeder Relationship Specialty Start Date End Date Elpidio Serrato MD PCP - General Internal Medicine 06/09/18 documented as of this encounter
--- OUTSIDE RECORDS SUMMARY | 2024-04-29 14:06 | XMS_ITS | Encounter Summary ---
Author Organization [facility] Address [address] [facility] [address] [place] [address] Phone Care Team Providers Care Development Advisor Name Role Phone Elpidio Serrato MD Primary Care Provider [phone] Encounter Details Date Type Department Care Team (Late st Contact Info) Description 12/19/2023 Orders Only [facility] Cardiothoracic Surgery [address] [facility] Advanced Medicine 8th Floor [address] Room [address] [place], [place] [id number] Columba Leslie TRAINING PROGRAM ASSISTANT [address] [facility] [id number] [place] [address] Social History Tobacco Use Types Packs/Day Years [...] on file Legal Sex Female 3:59 AM OPERATIONS DISPATCHER Gender Identity Female 05/13/2021 4:21 PM OPERATIONS DISPATCHER Sexual Orientation Not on file documented as of this encounter Ordered Prescriptions Prescription Sig Dispense Quantity Refills Last Filled Start Date End Date chlorhexidine (PERIDEX) 0.12 % solution Apply 15 mL to the mouth or throat 2 (two) times a day 473 mL 12/19/2023 4 chlorhexidine (HIBICLENS) 4 % external liquidIndications: Skin Disinfection Apply topically daily as needed for wound care For 5 days prior to procedure 236 mL 12/19/2023 4 mupirocin (BACTROBAN) 2 % ointment Apply to each nostril 2 (two) times a day For 5 days prior to procedure 22 g 12/19/2023 4 documented in this encounter Plan of Treatment Not on file documented as of this encounter Visit Diagnoses Not on filedocumented in this encounter Care Teams Development Advisor Relationship Specialty Start Date End Date Elpidio Serrato MD PCP - General Internal Medicine 06/09/18 documented as of this encounter
--- OUTSIDE RECORDS SUMMARY | 2024-04-29 14:06 | XMS_ITS | Encounter Summary ---
Author Organization [facility] Healthcare Address [address] [place] [address] Care Team Providers Care Dioramist Name Role Phone Elpidio Serrato MD Primary Care Provider Reason for Visit * Auth/Cert (Routine) Specialty Diagnoses / Procedures Referred By Contac t Referred To Contact Diagnoses Coronary artery disease, unspecified vessel or lesion type, unspecified whether angina present, unspecified whether [place] or transplanted heart Coronary artery disease, unspecified vessel or lesion type, unspecified whether angina present, unspecified whether [place] or transplanted heart [I25.10] Procedures AR CABG W/ARTERIAL GRAFT THREE ARTERIAL GRAFTS AR NDSC SURG W/VIDEO-ASSISTED HARVEST VEIN CABG 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 x3 OROZCO VEIN 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 Referral ID Status Reason Start Date Expiration Date Visits Re quested Visits Authorized [id number] 1 1 Encounter Details Date Type Department Care Team (Latest Contact Info) Description 01/17/2024 12:50 PM CDT - 01/17/2024 11:59 PM CDT Hospital Encounter [facility] Radiology [facility] [address] [place] [address] Pre-operative exam Discharge Disposition: Discharge to home or self care Social History Tobacco Use Types Packs/Day Years Used Date Smoking Tobacco: Never Smokeless Tobacco: Never AUDIT-C Answer Date Recorded Q1: How often do you have a drink containing alcohol? Never 01/17/2024 Q2: How many drinks containi ng alcohol do you have on a typical day when you are drinking? Patient does not drink Q3: How often do you have si x or more drinks on one occasion? Never 01/17/2024 Personal Safety Answer Date Recorded Have you ever been in or are you currently in a harmful physical or emotional relationship or is someone making you feel afraid or unsafe? Denies 11/25/2023 Comments No Sex and Gender Information Value Date Recorded Sex Assigned at Not on file Legal Sex Female 3:59 AM ACCOUNT MAINTENANCE REPRESENTATIVE Gender Identity Female 05/13/2021 4:21 PM ACCOUNT MAINTENANCE REPRESENTATIVE Sexual Orientation Not on file documented as [...] day for 6 doses 4 02/14/20 24 chlorhexidine (HIBICLENS) 4 % external liquidIndications:Ski n Disinfection Apply topically daily as needed for wound care For 5 days prior to procedure 236 mL 4 01/28/20 24 chlorhexidine (PERIDEX) 0.12 % solution Apply 15 mL to the mouth or throat 2 (two) times a day 473 mL 4 01/28/20 24 clopidogreL (PLAVIX) 75 mg tablet Take 1 tablet (75 mg total) by mouth daily 4 04/21/20 24 docusate sodium (COLACE) 100 mg capsuleIndications:co nstipation Take 1 capsule (100 mg total) by mouth 2 (two) times a day as needed for constipation 4 02/14/20 24 empagliflozin (Jardiance) 10 mg tabletIndications:Typ e 2 diabetes mellitus (HCC) Take 1 tablet (10 mg total) by mouth daily 90 tablet 3 3 01/28/20 24 ergocalciferol (VITAMIN D) 50,000 unit capsule TAKE 1 CAPSULE BY MOUTH ONCE WEEKLY 12 capsule 1 4 03/30/20 24 glucose 4 gram chewable tabletIndications:susan betes/ low blood sugar Take 1 tablet (4 g total) by mouth as needed for low blood sugar 01/28/20 24 insulin aspart (NovoLOG) 100 unit/mL (3 [...] mL 3 3 01/28/20 24 insulin lispro (HumaLOG) 100 unit/mL pen for [...] Sliding Scale Insulin Instructions. 15 mL 4 01/28/20 24 insulin lispro (HumaLOG, ADMELOG) 100 unit/mL vial for injectionIndications: type 2 diabetes mellitus Inject 10 Units under the skin 3 (three) times a day before meals Plus sliding scale 01/28/20 24 levothyroxine (SYNTHROID) 88 mcg tablet TAKE [...] or HR < 60 4 03/03/20 24 mupirocin (BACTROBAN) 2 % ointment Apply to each nostril 2 (two) times a day For 5 days prior to procedure 22 g 4 01/28/20 24 nitroglycerin (NITROSTAT) 0.4 mg SL tabletIndications:Con [...] VIEWS Schedule Routine, Read Routine (OP Routine) 01/17/2024 1:13 PM CDT Pre-operative exam documented in this encounter Results * XR [...] it. Electronically signed by: Erica Mustafa M.D. Aruna Land MODEL AND MOLD MAKER PLASTER IMG XR PROCEDURES Final Resul t documented in this encounter Visit Diagnoses Diagnosis Pre-operative exam Unspecified pre-operative examination documented in this encounter Care Teams Dioramist Relationship Specialty Start Date End Date Elpidio Serrato MD PCP - General Internal Medicine 06/09/18 documented as of this encounter
--- OUTSIDE RECORDS SUMMARY | 2024-04-29 14:07 | XMS_ITS | Encounter Summary ---
Author Organization [facility] Address [address] [place] [address] Care Team Providers Care Associate Professor Of Philosophy Name Role Phone Elpidio Serrato MD Primary Care Provider [phone] Encounter Details Date Type Department Care Team (Late st Contact Info) Description 11/08/2023 12:45 PM CDT Lab [facility] [address] [place] [phone] Congestive heart failure, unspecified HF chronicity, unspecified heart failure type (HCC) Social History Tobacco Use Types Packs/Day Years Used Date Smoking Tobacco: Never Smokeless Tobacco: Never AUDIT-C Answer Date Recorded Q1: How often do you have a drink containing alcohol? Never 08/03/2022 Q2: How many drinks containi ng alcohol do you have on a typical day when you are drinking? Patient does not drink Q3: How often do you have si x or more drinks on one occasion? 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 Gender Identity Female 05/13/2021 4:21 PM CENTER MACHINE SET UP OPERATOR Sexual Orientation Not on file documented as of this encounter Plan of Treatment Not on file documented as of this encounter Procedures Procedure Name Priority Date/Time Associated Diagnosis Comments EGFR Routine 11/08/2023 12:33 PM CDT Congestive heart failure, unspecified HF chronicity, unspecified heart failure type (HCC) BASIC METABOLIC PANEL Routine 11/08/2023 12:33 PM CDT Congestive heart failure, unspecified HF chronicity, unspecified heart failure type (HCC) documented in this encounter Results * (ABNORMAL) eGFR (11/08/2023 12:33 PM CDT) eGFR 33(L) >=60 mL/min/1. 73 m2 Comment: Interpretive Data [...] interpretive data was last reviewed 2021. Blood 11/08/2023 12:3 3 PM CDT 11/08/2023 12:42 PM CDT us Ben Chiu NP LAB BLOOD ORDERABLES Fin al Result [facility] Department [place] [address] * (ABNORMAL) Basic metabolic panel (11/08/2023 12:33 PM CDT) Sodium 145 135 - 145 mmol/L Potassium, pl 4.0 3.3 - 4.9 mmol/L [facility] Chloride 107 97 - 110 mmol/L [facility] CO2 24 22 - 32 mmol/L [facility] Anion gap 14 2 - 15 mmol/L [facility] BUN 36(H) 6 - 25 mg/dL [facility] Creatinine 1.61(H) 0.60 - 1.10 mg/dL [facility] Glucose 133 70 - 199 mg/dL [facility] Comment: Interpretive Data Fasting glucose >/= [...] interpretive data was last revised 2022. Calcium 9.5 8.5 - 10.3 mg/dL [facility] Blood 11/08/2023 12:3 3 PM CDT 11/08/2023 12:39 PM CDT Ben Chiu NP LAB BLOOD ORDERABLES [facility] al Result [facility] [place] [address] documented in this encounter Visit Diagnoses Diagnosis Congestive heart failure, unspecified HF chronicity, unspecified heart failure type (HCC) documented in this encounter Care Teams Associate Professor Of Philosophy Relationship Specialty Start Date End Date Elpidio Serrato MD PCP - General Internal Medicine 06/09/18 documented as of this encounter
--- OUTSIDE RECORDS SUMMARY | 2024-04-29 14:07 | XMS_ITS | Encounter Summary ---
Author Organization [facility] Address [address] [place] [address] Care Team Providers Care Paper Box Maker Name Role Phone Elpidio Serrato MD Primary Care Provider [phone] Reason for Referral * Cardiology (Routine) - Closed Specialty Diagnoses / Procedures Referred By Constantino alvarado Referred To Contact Diagnoses Dyspnea on exertion Congestive heart failure, unspecified HF chronicity, unspecified heart failure type (HCC) ROSE (dyspnea on exertion) Procedures Stress Echo Pharmacologic W Doppler/CF Gaurav Collier NP Phone: tel: fax: [address] [phone] Referral ID Status Reason Start Date Expiration Date Visits Re quested Visits Authorized [id number] Closed 11/08/2023 12/07/2024 1 1 Reason for Visit * Auth/Cert (Routine) Specialty Diagnoses / Procedures Referred By Contqi t Referred To Contact Diagnoses Abnormal cardiovascular stress test Abnormal stress echocardiogram Stable angina (HCC) Procedures n/a Referral ID Status Reason Start Date Expiration Date Visits Re quested Visits Authorized [id number] 1 1 Encounter Details Date Type Department Care Team (Latest Contact Info) Description 11/15/2023 9:28 AM CDT - 11/15/2023 11:59 PM CDT Hospital Encounter [facility] [address] [place] [id number] Dyspnea on exertion; Congestive heart failure, unspecified HF chronicity, unspecified heart failure type (HCC); ROSE (dyspnea on exertion) Discharge Disposition: Discharge to home or self [...] on file 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 Gender Identity Female 05/13/2021 4:21 PM LEAD SOFTWARE TEST ENGINEER Sexual Orientation Not on file documented as of this encounter Last Filed Vital Signs Vital Sign Reading Time Taken Comments Blood Pressure 115/68 11/15/2023 1:01 PM CDT Pulse 90 11/15/2023 1:01 PM CDT Temperature - - Respiratory Rate - - Oxygen Saturation - - Inhaled Oxygen Concentration - - Weight 91.2 kg (201 lb) 11/15/2023 10:50 AM CDT Height 149.9 cm (4' 11 ) 11/15/2023 10:50 AM CDT Body Mass Index 40.6 11/15/2023 10:50 AM CDT documented in this encounter Medications [...] Use 4X daily 300 each 3 3 celecoxib (CeleBREX) 200 mg capsule TAKE 1 CAPSULE DAILY 90 capsule 3 3 11/16/19 24 empagliflozin (Jardiance) 10 mg tabletIndications:Typ e [...] daily 90 tablet 3 3 02/14/20 24 semaglutide (OZEMPIC) 2 mg/dose (8 mg/3 [...] Procedure Name Priority Date/Time Associated Diagnosis Comments STRESS ECHO PHARMACOLOGIC W DOPPLER/CF W CONTRAST Routine 11/15/2023 1:00 PM CDT Dyspnea on exertion Congestive heart failure, unspecified HF chronicity, unspecified heart failure type (HCC) ROSE (dyspnea on exertion) documented in this encounter Results * STRESS ECHO PHARMACOLOGIC W DOPPLER/CF W CONTRAST (11/15/2023 1:00 PM CDT) LV EF 45-50 % CARDIOREPORT Anatomical Region Laterality Modality Ultrasound 11/15/2023 10:3 0 AM CDT Narrative 11/15/2023 1:19 PM CDT Patient name: Isabelle Lutz Date of test: 11/15/2023 Hospital #: [id number] ?Location: [facility] Interpreted by: Vandana Isaacs MD Asbestos Cement Sheet Supervisor: Olimpia Brandon RDCS RN: Shelby Jacobo RN Reason for Test: Dyspnea Study quality: Technically good Referring Physician: GAURAV COLLIER MD Contrast Agent: 3.0 ml Optison Administered BASELINE STUDY: Wall Motion Scoring (1=Normal 2=Hypo 3=Akinetic 4=Dyskin./Aneurysm 0=Not visualized) Parasternal Long [place]:MAS=1 BAS=1 MIL=2 ROBERT=2 Parasternal Short [place]:MAS=1 MIS=1 TX=1 MIL=2 MAL=1 MA=1 Apical 4 Chambers:=1 MIS=1 BIS=3 BAL=1 MAL=1 AL=1 AC=3 Apical 2 Chambers:AI=1 TX=1 BI=3 BA=1 MA=1 AA=2 AC=3 Ejection Fraction: 45-50% LV Global Function: Mild segmental left ventricular dysfunction. MWA: Akinesis of the LV apex, basal inferior/inferoseptal wall and hypokinesis of the apical anterior wall and inferolateral wall. Baseline Echo Comments: TDS with poor endocardial border visualization. Mild LAE. ??Normal LV cavity size with mild segmental LV dysfunction. WMA as above. Mild RVE with normal RVSF. Aortic sclerosis. Aortic root normal in size. IVC is small and collapses which supports decreased venous pressures. Abd Ao and aortic arch not well visualized. Doppler/CF Comments: No /No AR; No MS/ mild MR; No TR; No AK. Diastolic Function: Grade I (impaired relaxation) with nl est filling pressures.Unable to estimate PASP d/t inadequate TR jet. Baseline HR: 77 Baseline BP: 115/57 Conduction Defects: RBBB + LAFB Resting ECG Comments: [facility] Medications: Lasix, Aspirin, Lipitor, evothyroxine, Metformin, Insulin Meds held: none POST DOBUTAMINE STUDY: Wall Motion Scoring (1=Normal 2=Hypo 3=Akinetic 4=Dyskin./Aneurysm 0=Not visualized) Parasternal Long [place]:MAS=1 BAS=1 MIL=3 ROBERT=3 Parasternal Short [place]:MAS=1 MIS=1 TX=1 MIL=3 MAL=1 MA=1 Apical 4 Chambers:=1 MIS=1 BIS=1 BAL=1 MAL=1 AL=1 AC=2 Apical 2 Chambers:AI=1 TX=1 BI=3 BA=1 MA=1 AA=1 AC=2 Intravenous dobutamine was infused to a maximal dose ??30 micro-g/Kg/min. Atropine: 0 mg. ?Other Med: Peak HR: 131 Peak BP: 110/46 Post-Exercise Comments: Marked increase in the LV and RV contractility, no NEW segmental wall motion abnormalities at peak stress; however in recovery (2 to 6min) pt with hypokinesis of anterior wall and inferior wall and marked hypo/akinesis of the inferolaterall with associated throat fullness. Basal inferior wall remains akinetic c/w infarction. Test terminated: ??Target heart rate achieved Stress ECG Comments: ??ECG changes doesn't meet criteria for ischemia, rare PVC's CONTRAST ENHANCEMENT WAS EMPLOYED after initial imaging due to sub-optimal quality related to co-morbidity defined by patient's body habitus. Impression: TDS. ?? Maximal Dobutamine Stress Echocardiogram ( MPHR), POSITIVE for myocardial ischemia with hypokinesis of anterior wall and inferior wall and marked hypo/akinesis of the inferolateral wall with associated throat fullness. Basal inferior wall remains akinetic c/w infarction. Pt's throat fullness resolved with SLNTGx1 and resolution of WMA. ??Concern for multivessel disease and ischemia at rest. Above d/w Dr. Tammy Alfaro. ?? Revised on ??11/15/2023 - 13:54:34 by Vandana Isaacs MD By signing this report, the attending paper sorter certifies that he or she has personally supervised and interpreted the echocardiogram and has reviewed and or edited and agrees with the written comments contained within the report. Procedure Note Vandana Isaacs MD - 11/15/2023 Patient name: Isabelle Lutz Date of test: 11/15/2023 [facility] #: [id number] Location: [facility] Interpreted by: Vandana Isaacs MD Asbestos Cement Sheet Supervisor: Olimpia Brandon RY RN: Shelby Jacobo RN Reason for Test: Dyspnea Study quality: Technically good Referring Physician: GAURAV COLLIER MD Contrast Agent: 3.0 ml Optison Administered BASELINE STUDY: Wall Motion Scoring (1=Normal 2=Hypo 3=Akinetic 4=Dyskin./Aneurysm 0=Not visualized) Parasternal Long [place]:MAS=1 BAS=1 MIL=2 ROBERT=2 Parasternal Short [place]:MAS=1 MIS=1 TX=1 MIL=2 MAL=1 MA=1 Apical 4 Chambers:=1 MIS=1 BIS=3 BAL=1 MAL=1 AL=1 AC=3 Apical 2 Chambers:AI=1 TX=1 BI=3 BA=1 MA=1 AA=2 AC=3 Ejection Fraction: [...] No MS/ mild MR; No TR; No AK. Diastolic Function: Grade I (impaired relaxation) with nl est filling pressures.Unable to estimate PASP d/t inadequate TR jet. Baseline HR: 77 Baseline BP: 115/57 Conduction Defects: RBBB + LAFB Resting ECG Comments: Oriana Jensen Medications: Lasix, Aspirin, Lipitor, evothyroxine, Metformin, Insulin Meds held: none POST DOBUTAMINE STUDY: Wall Motion Scoring (1=Normal 2=Hypo 3=Akinetic 4=Dyskin./Aneurysm 0=Not visualized) Parasternal Long [place]:MAS=1 BAS=1 MIL=3 ROBERT=3 Parasternal Short [place]:MAS=1 MIS=1 TX=1 MIL=3 MAL=1 MA=1 Apical 4 Chambers:=1 MIS=1 BIS=1 BAL=1 MAL=1 AL=1 AC=2 Apical 2 Chambers:AI=1 TX=1 BI=3 BA=1 MA=1 AA=1 AC=2 Intravenous dobutamine [...] 11/15/2023 - 13:54:34 by Vandana Isaacs MD By signing this report, the attending paper sorter certifies that he or she has personally supervised and interpreted the echocardiogram and has reviewed and or edited and agrees with the written comments contained within the report. us Gaurav Collier NP CV ECHO PROCEDURES Edited documented in this encounter Visit Diagnoses Diagnosis Dyspnea on exertion Other dyspnea and respiratory abnormality Congestive heart failure, unspecified HF chronicity, unspecified heart failure type (HCC) ROSE (dyspnea on exertion) Other dyspnea and respiratory abnormality documented in this encounter Administered Medications Inactive Administered Medications - up to 3 most recent administrations Medication Order MAR Action Action Date Dose Rate Site DOBUTamine in dextrose 5% (DOBUTREX) 100 mg/50 mL (2,000 mcg/mL) infusion (premix) 10-50 mcg/kg/min ? 91.2 kg (27.36-136.8 mL/hr, rounded to 27.4-136.8 mL/hr), intravenous, Titrated, Starting on Sat11/15/23 at 1230, Intra-Procedure (CV) New Bag 11/15/2023 1:00 PM CDT 30 mcg/kg/min 82.1 mL/hr esmoloL (BREVIBLOC) injection 0-200 mg 0-200 mg, intravenous, Administer over 1 Minutes, Titrated, Starting on Sat11/15/23 at 1230, Intra-Procedure (CV) New Bag 11/15/2023 1:01 PM CDT 50 mg perflutren protein-a (OPTISON) 3 mL in sodium chloride 0.9% 8 mL syringe 1-8 mL, intravenous, Once in imaging, contrast, Starting on Sat11/15/23 at 1147, For 1 dose, Intra-Procedure (CV) Contrast Given 11/15/2023 1:00 PM CDT 8 mL documented in this encounter Orders Medications Ordered That Alan ht Not Have Been Administered Count Last Ordered Date First Ordered Date atropine injection 0.4 mg 1 11/15/2023 documented in this encounter Care Teams Paper Box Maker Relationship Specialty Start Date End Date Elpidio Serrato MD PCP - General Internal Medicine 06/09/18 documented as of this encounter
--- OUTSIDE RECORDS SUMMARY | 2024-04-29 14:07 | XMS_ITS | Encounter Summary ---
Author Organization [facility] Address [address] [place] [address] Phone Care Team Providers Care Metal Furnace Operator Name Role Phone Elpidio Serrato MD Primary Care Provider [phone] Encounter Details Date Type Department Care Team (Late st Contact Info) Description 10/30/2023 Orders Only 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
--- OUTSIDE RECORDS SUMMARY | 2024-04-29 14:07 | XMS_ITS | Encounter Summary ---
Author Organization [facility] Address [address] [place] [address] Phone Care Team Providers Care Township Supervisor Name Role Phone Elpidio Serrato MD Primary Care Provider [phone] Reason for Referral * Consultation (Routine) - Pending Review Specialty Diagnoses / Procedures Referred By Constantino alvarado Referred To Contact Sleep Medicine Diagnoses Dyspnea on exertion Congestive heart failure, unspecified HF chronicity, unspecified heart failure type (HCC) ROSE (dyspnea on exertion) Gaurav Collier NP Phone: tel: fax: [facility] - Sleep Medicine [address] [place] [address] [address] [place] [address] Phone: tel: fax: Referral ID Status Reason Start Date Expiration Date Visits Requested Visits Authorized [id number] Pending Review Specialty Services Required 11/08/2023 12/07/2024 1 1 Question Answer Please select the performing region: [facility] [[id number]] Please select the performing department: [facility] NEUROLOG[facility] [[id number]] # of visits: 1 * Cardiology (Routine) - Closed Specialty Diagnoses / Procedures Referred By Constantino t Referred To Contact Diagnoses Dyspnea on exertion Congestive heart failure, unspecified HF chronicity, unspecified heart failure type (HCC) ROSE (dyspnea on exertion) Procedures Stress Echo Pharmacologic W Doppler/CF Gaurav Collier NP Phone: tel: fax: [facility] [address] [place] [address] Referral ID Status Reason Start Date Expiration Date Visits Re quested Visits Authorized [id number] Closed 11/08/2023 12/07/2024 1 1 Reason for Visit * Consultation (Routine) - Closed Specialty Diagnoses / Procedures Referred By Contac t Referred To Contact Cardiology Diagnoses Dyspnea on exertion Merna Bell MD [address] [facility] [address] [place] [address] Phone: tel: fax: [facility] (All Locations) Referral ID Status Reason Start Date Expiration Date V isits Requested Visits Authorized [id number] Closed Specialty Services Required 10/30/2023 11/28/2024 1 1 Encounter Details Date Type Department Care Team (Late st Contact Info) Description 11/08/2023 12:30 PM CDT Office Visit [facility] Cardiology [address] [facility] [address] [place] [address] [place] [address] Gaurav Collier NP [address] [facility] [address] [place] [address] Dyspnea on exertion (Primary Dx); Congestive heart failure, unspecified HF chronicity, unspecified heart failure type (HCC); ROSE (dyspnea on exertion) Social History Tobacco Use Types Packs/Day Years [...] on file 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 Gender Identity Female 05/13/2021 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 Sexual Orientation Not on file documented as of this encounter Last Filed Vital Signs Vital Sign Reading Time Taken Comments Blood Pressure 103/65 11/08/2023 11:34 AM CDT Pulse 92 11/08/2023 11:34 AM CDT Temperature - - Respiratory Rate - - Oxygen Saturation 99% 11/08/2023 11:34 AM CDT Inhaled Oxygen Concentration - - Weight 91.2 kg (201 lb) 11/08/2023 11:34 AM CDT Height 149.9 cm (4' 11 ) 11/08/2023 11:34 AM CDT Body Mass Index 40.6 11/08/2023 11:34 AM CDT documented in this encounter Patient Instructions * Patient Instructions* Gaurav Collier NP - 11/08/2023 12:30 PM CDT Stress echo as soon as possible Sleep evaluation Labs today, may go up on lasix Please call for any questions [phone] documented in this encounter Progress Notes * Gaurav Collier NP - 11/08/2023 12:30 PM CDT Patient Name: Isabelle Dominguez VS: Provider: Gaurav Collier NP : 1950 Date of Service: 11/08/2023 Referring: Ray PAST MEDICAL HISTORY: Type 2 diabetes mellitus, chronic kidney disease, glaucoma, obesity, hypertension, osteoarthritis, hypothyroidism HISTORY OF PRESENT ILLNESS: 73 y.o. female here for a NEW patient visit for dyspnea. 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 She complained of dyspnea and blood work revealed an elevated proBNP, elevated creatinine and elevated potassium. Her Olmesartan was stopped on October 28. She was started on 20 mg Lasix on 10/29. She has lost 4 lb since then and feels better. She has occasional chest tightness. She endorses [place] heart [employer] class 3 symptoms. REVIEW OF SYSTEMS: She denies syncope, LOIS or palpitations. 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 She is a non smoker FAMILY HISTORY: Mother and brother on dialysis due to diabetes and hypertension. Mother has Type IIDM, thyroid disorder and HTN MEDICATIONS: Outpatient Encounter Medications as of 11/08/2023 Medication Sig Dispense Refill acetaminophen (TYLENOL) 325 mg tablet Take 2 tablets (650 mg total) by mouth every 6 (six) hours asneeded for pain aspirin 81 mg enteric coated tablet Take 1 tablet (81 mg total) by mouth daily before breakfast atorvastatin (LIPITOR) 40 mg tablet Take 1 tablet (40 mg total) by mouth daily 90 tablet 3 blood glucose diagnostic (glucose blood) strip Testing once daily 100 each 2 brimonidine-timoloL (Combigan) 0.2-0.5 % ophthalmic solution Administer 1 drop into the left eye 2 (two) times a day 15 mL 3 celecoxib (CeleBREX) 200 mg capsule TAKE 1 CAPSULE DAILY 90 capsule 3 empagliflozin (Jardiance) 10 mg tablet Take 1 tablet (10 mg total) by mouth daily 90 tablet 3 ergocalciferol (VITAMIN D) 50,000 unit capsule TAKE 1 CAPSULE BY MOUTH ONCE WEEKLY 12 capsule 1 furosemide (LASIX) 20 mg tablet Take 1 tablet (20 mg total) by mouth daily 30 tablet 11 insulin aspart (NovoLOG) 100 unit/mL (3 mL) pen for injection Inject 12 Units under the skin 3 (three) times a day 45 mL 2 insulin glargine (BASAGLAR) 100 unit/mL (3 mL) pen for injection Inject 50 Units under the skin daily before breakfast 45 mL 3 insulin lispro (HumaLOG, ADMELOG) 100 unit/mL vial for injection Inject 8-12 Units under the skin daily with lunch latanoprost (XALATAN) 0.005 % ophthalmic solution Administer 1 drop into both eyes nightly 7.5 mL 3 levothyroxine (SYNTHROID) 88 mcg tablet TAKE 1 TABLET BY MOUTH EVERY DAY 90 tablet 3 metFORMIN (GLUCOPHAGE) 500 mg tablet Take 1 tablet (500 mg total) by mouth daily 90 tablet 3 pen needle, diabetic (BD Ultra-Fine Hailee Pen Needle) 32 gauge x 5/32 needle Use 4X daily 300 each 3 semaglutide (OZEMPIC) 2 mg/dose (8 mg/3 mL) pen injector injection Inject 2 mg under the skin once a week 9 mL 3 ciprofloxacin (CIPRO) 500 mg tablet Take 1 tablet (500 mg total) by mouth 2 (two) times a day for 5days (Patient not taking: Reported on 11/08/2023) 10 tablet 0 [DISCONTINUED] amLODIPine (NORVASC) 5 mg tablet Take 1 tablet (5 mg total) by mouth daily (Patient not taking: Reported on 11/08/2023) 30 tablet 11 No facility-administered encounter medications on file as of 11/08/2023. PHYSICAL EXAM: BP 103/65 (BP Location: Right arm, Patient Position: Sitting) Pulse 92 Ht 149.9 cm (4' 11 ) Wt 91.2 kg (201 lb) SpO2 99% BMI 40.60 kg/m?? General: Well appearing, No pain or distress, well nourished HEENT: Within normal limits Neck: Supple, No carotid bruits, no JVD Respiratory: Clear to ausculation bilaterally; no wheezing/rales/rhonchi; respirations unlabored Cardiovascular: RRR, normal S1 and S2. No S3 or S4. No murmurs or rubs Gastrointestinal: soft, non-tender abdomen, no masses palpable Extremities: Warm and dry without edema Psychiatric: normal affect Neurologic: awake/alert, no focal deficits DIAGNOSTIC TESTING: EKG today showed sinus rhythm with frequent ventricular ectopy ASSESSMENT & PLAN: Dyspnea on exertion. She has shortness breath with exertion and an elevated proBNP. She is now on 20 mg Lasix and that seems to have helped. I have ordered a stress echo to assess her LV function andto rule out ischemia as a source of her dyspnea. I ordered a repeat BMP today and her potassium hasnormalized but her creatinine is up 1.6. She will reduce her furosemide to every other day dosing with a repeat BMP in about 2 weeks. I have also ordered a sleep evaluation PVCs. She had frequent PVCs on EKG today. Will think about placing a monitor to assess her ventricular ectopy burden after I get her Stress ECHO results. Type 2 diabetes mellitus Obesity I would like her to come back in 3 months to establish with a general painter foreman Gaurav Collier NP documented in this encounter Plan of Treatment Scheduled Referrals Name Type Priority Associated Diagnoses Orde r Schedule Ambulatory referral to Sleep Medicine Outpatient Referral Routine Dyspnea on exertion Congestive heart failure, unspecified HF chronicity, unspecified heart failure type (HCC) ROSE (dyspnea on exertion) Expected: 11/22/2023 (Approximate), Expires: 11/07/2024 documented as of this encounter Procedures Procedure Name Priority Date/Time Associated Diagnosis Comments ECG 12-LEAD Routine 11/08/2023 11:39 AM CDT Dyspnea on exertion documented in this encounter Results * STRESS ECHO PHARMACOLOGIC W DOPPLER/CF W CONTRAST (11/15/2023 1:00 PM CDT) LV EF 45-50 % CARDIOREPORT Anatomical Region Laterality Modality Ultrasound 11/15/2023 10:3 0 AM CDT Narrative 11/15/2023 1:19 PM CDT Patient name: Isabelle Lutz Date of test: 11/15/2023 Hospital #: 0 ?Location: [facility] Interpreted by: Vandana Isaacs MD Carpentry Foreman: Olimpia Brandon RDCS RN: Shelby Jacobo RN Reason for Test: Dyspnea Study quality: Technically good Referring Physician: GAURAV COLLIER MD Contrast Agent: 3.0 ml Optison Administered BASELINE STUDY: Wall Motion Scoring (1=Normal 2=Hypo 3=Akinetic 4=Dyskin./Aneurysm 0=Not visualized) Parasternal Long Cascade:MAS=1 BAS=1 MIL=2 ROBERT=2 Parasternal Short Cascade:MAS=1 MIS=1 MN=1 MIL=2 MAL=1 MA=1 Apical 4 Chambers:=1 MIS=1 BIS=3 BAL=1 MAL=1 AL=1 AC=3 Apical 2 Chambers:AI=1 MN=1 BI=3 BA=1 MA=1 AA=2 AC=3 Ejection Fraction: [...] No MS/ mild MR; No TR; No TX. Diastolic Function: Grade I (impaired relaxation) with nl est filling pressures.Unable to estimate PASP d/t inadequate TR jet. Baseline HR: 77 Baseline BP: 115/57 Conduction Defects: RBBB + LAFB Resting ECG Comments: Oriana Jensen Medications: Lasix, Aspirin, Lipitor, evothyroxine, Metformin, Insulin Meds held: none POST DOBUTAMINE STUDY: Wall Motion Scoring (1=Normal 2=Hypo 3=Akinetic 4=Dyskin./Aneurysm 0=Not visualized) Parasternal Long Cascade:MAS=1 BAS=1 MIL=3 ROBERT=3 Parasternal Short Cascade:MAS=1 MIS=1 MN=1 MIL=3 MAL=1 MA=1 Apical 4 Chambers:=1 MIS=1 BIS=1 BAL=1 MAL=1 AL=1 AC=2 Apical 2 Chambers:AI=1 MN=1 BI=3 BA=1 MA=1 AA=1 AC=2 Intravenous dobutamine [...] MD By signing this report, the attending painter foreman certifies that he or she has personally supervised and interpreted the echocardiogram and has reviewed and or edited and agrees with the written comments contained within the report. Procedure Note Vandana Isaacs MD - 11/15/2023 Patient name: Isabelle Lutz Date of test: 11/15/2023 Hospital #: [id number] Location: [facility] Interpreted by: Vandana Isaacs MD Carpentry Foreman: Olimpia Brandon RDCS RN: Shelby Jacobo RN Reason for Test: Dyspnea Study quality: Technically good Referring Physician: GAURAV COLLIER MD Contrast Agent: 3.0 ml Optison Administered BASELINE STUDY: Wall Motion Scoring (1=Normal 2=Hypo 3=Akinetic 4=Dyskin./Aneurysm 0=Not visualized) Parasternal Long Cascade:MAS=1 BAS=1 MIL=2 ROBERT=2 Parasternal Short Cascade:MAS=1 MIS=1 MN=1 MIL=2 MAL=1 MA=1 Apical 4 Chambers:=1 MIS=1 BIS=3 BAL=1 MAL=1 AL=1 AC=3 Apical 2 Chambers:AI=1 MN=1 BI=3 BA=1 MA=1 AA=2 AC=3 Ejection Fraction: [...] No MS/ mild MR; No TR; No TX. Diastolic Function: Grade I (impaired relaxation) with nl est filling pressures.Unable to estimate PASP d/t inadequate TR jet. Baseline HR: 77 Baseline BP: 115/57 Conduction Defects: RBBB + LAFB Resting ECG Comments: Oriana Jensen Medications: Lasix, Aspirin, Lipitor, evothyroxine, Metformin, Insulin Meds held: none POST DOBUTAMINE STUDY: Wall Motion Scoring (1=Normal 2=Hypo 3=Akinetic 4=Dyskin./Aneurysm 0=Not visualized) Parasternal Long Cascade:MAS=1 BAS=1 MIL=3 ROBERT=3 Parasternal Short Cascade:MAS=1 MIS=1 MN=1 MIL=3 MAL=1 MA=1 Apical 4 Chambers:=1 MIS=1 BIS=1 BAL=1 MAL=1 AL=1 AC=2 Apical 2 Chambers:AI=1 MN=1 BI=3 BA=1 MA=1 AA=1 AC=2 Intravenous dobutamine [...] MD By signing this report, the attending painter foreman certifies that he or she has personally supervised and interpreted the echocardiogram and has reviewed and or edited and agrees with the written comments contained within the report. Gaurav Collier MAIL TELLER CV ECHO PROCEDURES Edited * (ABNORMAL) Basic metabolic panel (11/08/2023 12:33 PM CDT) Pathologist [facility] Sodium 145 135 - 145 mmol/L Potassium, pl 4.0 3.3 - 4.9 mmol/L [facility] Chloride 107 97 - 110 mmol/L [facility] CO2 24 22 - 32 mmol/L [facility] Anion gap 14 2 - 15 mmol/L [facility] BUN 36(H) 6 - 25 mg/dL [facility] Creatinine 1.61(H) 0.60 - 1.10 mg/dL [facility] Glucose 133 70 - 199 mg/dL [facility] Comment: Interpretive Data Fasting glucose [...] 2022. Calcium 9.5 8.5 - 10.3 mg/dL [facility] Blood 11/08/2023 12:3 3 PM CDT 11/08/2023 12:39 PM CDT Ben Ivon Chiu MAIL TELLER LAB BLOOD ORDERABLES Fin al Result [facility] [place] [address] * ECG 12 lead (11/08/2023 11:39 AM CDT) us Gaurav Rater MAIL TELLER ECG ORDERABLES Final Result documented in this encounter Visit Diagnoses Diagnosis Dyspnea on exertion- Primary Other dyspnea and respiratory abnormality Congestive heart failure, unspecified HF chronicity, unspecified heart failure type (HCC) ROSE (dyspnea on exertion) Other dyspnea and respiratory abnormality Dyspnea on exertion Other dyspnea and respiratory abnormality Congestive heart failure, unspecified HF chronicity, unspecified heart failure type (HCC) ROSE (dyspnea on exertion) Other dyspnea and respiratory abnormality documented in this encounter Discontinued Medications Medication Sig Discontinue Reason Start Date End Da te amLODIPine (NORVASC) 5 mg tablet Take 1 tablet (5 mg total) by mouth daily Alternate therapy 10/29/2023 11/08/2023 documented as of this encounter Orders Outpatient Referral Count Last Ordered Date Fir st Ordered Date AMB REFERRAL TO CARDIOLOGY 1 11/08/2023 documented in this encounter Care Teams Township Supervisor Relationship Specialty Start Date End Date Elpidio Serrato MD PCP - General Internal Medicine 06/09/18 documented as of this encounter
--- OUTSIDE RECORDS SUMMARY | 2024-04-29 14:07 | XMS_ITS | Encounter Summary ---
Author Organization [facility] Healthcare Address [address] [place] [address] Care Team Providers Care Chlorine Cells Operator Name Role Phone Elpidio Serrato MD Primary Care Provider [phone] Reason for Visit * Auth/Cert (Routine) Specialty Diagnoses / Procedures Referred By Contac t Referred To Contact Diagnoses Abnormal stress echocardiogram Abnormal stress echocardiogram [R94.39] Procedures Right Left Heart Catheterization with Coronary Angiography with or without Left Ventriculography [id number] Referral ID Status Reason Start Date Expiration Date Visits Re quested Visits Authorized [id number] 1 1 Encounter Details Date Type Department Care Team (Late st Contact Info) Description 11/25/2023 8:00 AM CDT - 11/25/2023 9:35 AM CDT Surgery [facility] [address] [place] [address] Kvng Gibson MD [address] [facility] [address] [place] [address] Right Left Heart Catheterization with Coronary Angiography with or without Left Ventriculography [id number] Surgery Details Date/Time Status Location OR Service Patient Class Case Class Case Type Trauma Case? 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 Gender Identity Female 05/13/2021 4:21 PM GEODETIC SURVEY DIRECTOR Sexual Orientation Not on file documented as of this encounter Last Filed Vital Signs Vital Sign Reading Time Taken Comments Blood Pressure 124/61 11/25/2023 7:35 AM CDT Pulse 81 11/25/2023 7:35 AM CDT Temperature 36.6 ??C (97.9 ??F) 11/25/2023 7:35 AM CD T Respiratory Rate 18 11/25/2023 7:35 AM CDT Oxygen Saturation 98% 11/25/2023 7:35 AM CDT Inhaled Oxygen Concentration - - Weight 92.5 kg (204 lb) 11/25/2023 7:35 AM CDT Height 149.9 cm (4' 11 ) 11/25/2023 7:35 AM CDT Body Mass Index 41.2 11/25/2023 7:35 AM CDT documented in this encounter Discharge Instructions * Discharge Instructions* Adrianna Vargas, TRANSITIONAL CARE MANAGER - 11/25/2023 10:12 AM CDT Discharge Instructions For Cardiac Catheterization (Radial Approach) The Radial Artery is the small artery on the thumb side of your wrist. Your doctor has used this artery for your procedure. At the end of your procedure your doctor placed a special pressure pad/banddirectly on the artery to stop the bleeding and applied a wrist support to keep your wrist and handin a quiet position. We have removed that band and the support and have a Band-aid over the site. You may remove the Band-aid in the morning. Gently clean the area and apply a new Band-aid in the morning if you wish. Activity Restrictions: Take it easy for the next few days. We encourage you to perform your usual activities; you should move your arm, wrist, hand and fingers when you go home. Perform hand exercises by making a fist and opening it 5-10 times a minute as often as you remember. Due to your sedation: do not drive for 24 hours, and do not make any legal decisions for 24 hours. Keep the site dry. Do not soak your arm in water or a bath for 3 days. Washing your hands and showering is okay. Do not lift more than 5 pounds with your affect arm for 3 days. No heavy impact activities for one week. All activities are permitted after one week if no problems occur. Avoid NSAIDs. You may take Acetaminophen 650mg every 6 hours for mild post- procedural discomfort. Due to receiving sedation for your procedure: Do not make any legal decisions for 24 hours Do not operate potentially dangerous machinery for 24 hours Do not drink alcohol for 24hours Continue to take your home medications on your regular schedule, EXCEPT Do not take this medication METFORMIN You may restart this medication on SaturdayNovember 26 PM dose If you cannot afford any of your prescribed medication please notify your primary provider and/or manager resort immediately. If you notice bleeding at the puncture site: Apply gentle direct pressure with your fingers over the site for 15 minutes. After 15 minutes you may release the pressure gently. If the bleeding re-starts or continues; reapply direct pressure and call 911. NEVER wrap a dressing or adhesive tape completely around your wrist as this can cause serious circulation complications. Call your doctor immediately for any of these rare but serious problems. If you are unable to reach your doctor go to the nearest Emergency Room. A swelling or bruise that is increasing in size or getting worse rather than disappearing. Severe pain at the puncture site, affected hand or forearm Your affected hand becomes cold, pale, or numb as compared to your other hand. Your arm becomes red, warm to the touch, or swollen as compared to your other arm. IV dye reactions are rare but can occur. If you develop a rash, hives, or itching of the skin or have throat tightness, notice selling of the tongue or lips, you may be having a dye reaction. For routine questions or concerns regarding your care after your catheterization please feel free to call us. From 7am-5pm M-F call our Outpatient Nurse Coordinators at [phone]. If you need to speak to someone after 5pm please call [facility] at [phone] and ask the pipe machine operator topage the Cardiac Music Intern Fellow terra cotta mason. documented in this encounter Medications at Time [...] Ultra-Fine Hailee Pen Needle) 32 gauge x 32 needleIndications:Typ e 2 diabetes mellitus with moderate [...] unspecified HF chronicity, unspecified heart failure type ([facility]) Place 1 tablet (0.4 mg total) under [...] Departure Means Destination Comment s Discharge to home or self care documented in this encounter Consult Notes * Brenda Jessica Rose, JAMES - 11/25/2023 10:13 AM CDT Cardiothoracic Surgery Consult Referring Physician/Service: Dr. Gibson Consult Attending Staffing Case: Dr. Treviño Reason for consult: MV CAD, CABG evaluation No chief complaint on file. Patient is a 73 y.o. female with chief complaint of positive stress test. HPI: 73y/o F with DM, glaucoma, HTN, hypothyroidism, CKD-stage3, HLD,obesity, recently positive stress test who presented to [facility] today for LHC. Over the past three months, she has been having exertional dyspnea with associated occasional throat tightness. Due to these symptoms, she had a stress test on 11/14 which was positive for ischemia with HK of the anterior wall and inferior wall with marked hypo/akinesis of the inferolateral wall withassociated throat fullness. Also noted was akinetic basal inferior wall c/w infarctions. She was given SL nitro with relief of symptoms and admitted to the hospital for observation following this. Her troponins were relatively unremarkable: 22 > 25> 20; no acute EKG changes; no recurrence of symptoms. Therefore, she was discharged from the hospital the following day with LHC scheduled in the near future. Today, she returned for LHC which showed severe MV CAD with SQL SSIS DEVELOPER of RCA, heavily calcified disease in the prox CX, diffuse heavily calcified disease in the prox LAD with severe lesion inthe mid-apical LAD. CTS is consulted for CABG evaluation. Ms. Lutz lives at home independently. 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 Her adult son lives with her. She has osteoarthritis of her knees so has occasional difficulty ambulating due to this, but she does not use any assist devices on a regular basis. She is able to do things around the house (cook, clean, light housework and outside work) and drive. The following conditions are considered:present at time of consult and are being treated or evaluated. Anemia: Undertermined and being evaluated: Cardiac Disease: CAD (Specify): MV CAD Chronic Kidney Disease: Stage 3 = eGRF 30-59 Diabetes Mellitus: Type 2 DM (if complication present, then include as diagnosis) Heart Failure: Diastolic CHF (EF normal greater than 50% with diastolic function Obesity: Class III Obesity (BMI > 40.0) Other: HTN, HLD, hypothyroidism, arthritis Class II - Slight limitation of physical activity. Comfortable at rest, but ordinary physical activity results in fatigue, palpitation, or dyspnea. Past Medical History: Diagnosis Date Cataract CHF [...] CATARACT EXTRACTION Right 06/14/2022 CE/IOL + goniotomy SC APPENDECTOMY unkown dates per pt SC DELIVERY ONLY Section - in 1972 and 1975 (Added by TW Conv) SC TENDON SHEATH INCISION Hand Incision Tendon Sheath Of A Finger - right hand, III finger, /10 (Added by TW Conv) HOME MEDICATIONS : acetaminophen (TYLENOL) 325 mg tablet aspirin 81 mg enteric coated tablet atorvastatin (LIPITOR) 40 mg tablet blood glucose diagnostic (glucose blood) strip brimonidine-timoloL (Combigan) 0.2-0.5 % ophthalmic solution calcium carbonate (TUMS) 500 mg (200 mg elemental calcium) chewable tablet ergocalciferol (VITAMIN D) 50,000 unit capsule furosemide (LASIX) 20 mg tablet insulin aspart (NovoLOG) 100 unit/mL (3 mL) pen for injection insulin glargine (BASAGLAR) 100 unit/mL (3 mL) pen for injection insulin lispro (HumaLOG, ADMELOG) 100 unit/mL vial for injection latanoprost (XALATAN) 0.005 % ophthalmic solution levothyroxine (SYNTHROID) 88 mcg tablet metFORMIN (GLUCOPHAGE) 500 mg tablet nitroglycerin (NITROSTAT) 0.4 mg SL tablet pen needle, diabetic (BD Ultra-Fine Hailee Pen Needle) 32 gauge x 5/32 needle empagliflozin (Jardiance) 10 mg tablet semaglutide (OZEMPIC) 2 mg/dose (8 mg/3 mL) pen injector injection Current Facility-Administered Medications: acetaminophen (TYLENOL) tablet 650 mg, 650 mg, oral, Q4H PRN, Adrianna Vargas, TRANSITIONAL CARE MANAGER Carrier Fluids for Secondary Infusion - 0.9% Sodium Chloride, 30 mL, intravenous, PRN, Adrianna Vargas, TRANSITIONAL CARE MANAGER sodium chloride 0.9% flush 0.5-20 mL, 0.5-20 mL, intra-catheter, Q8H LAMONTE, Adrianna Vargas, JAMES sodium chloride 0.9% flush 0.5-20 mL, 0.5-20 mL, intra-catheter, PRN, Adrianna Vargas, TRANSITIONAL CARE MANAGER [COMPLETED] sodium chloride 0.9% bolus 267 mL, 3 mL/kg, intravenous, Once, 267 mL at 11/25/23 0808 FOLLOWED BY sodium chloride 0.9% infusion, 1 mL/kg/hr, intravenous, Continuous, Adrianna Vargas, TRANSITIONAL CARE MANAGER, Last Rate: 89.1 mL/hr at 11/25/23808, 1 mL/kg/hr at 11/25/23808 sodium chloride 0.9% infusion, 100 mL/hr, intravenous, Continuous, Kvng Gibson MD, Last Rate: 100 mL/hr at 11/25/23925, 100 mL/hr at 11/25/23925 Allergies Allergen Reactions Pseudoephedrine Palpitations Valacyclovir Other (See comments) put me in renal failure Social History Tobacco Use Smoking status: Never Smokeless tobacco: Never Substance and Sexual Activity Drug use: Never Sexual activity: Defer Alcohol Use: Not At Risk (11/25/2023) AUDIT-C Frequency of Alcohol Consumption: Never Average Number of Drinks: Patient does not drink Frequency of Binge Drinking: Never Family History Problem Relation Age of Onset Heart disease Other Heart Disease - mother (Added by Conv) Hypertension Other Hypertension - mother (Added by Conv) Thyroid disease Other Thyroid Disorder - mother (Added by Conv) Diabetes type II Other Type II Diabetes Mellitus - mother (Added by Conv) Anesthesia problems Neg Hx Review of Systems: Must be review of 10 systems: Review of Systems Constitutional: Positive for activity change. HENT: Negative. Eyes: Negative. Respiratory: Positive for shortness of breath. Cardiovascular: Negative for palpitations and leg swelling. Throat tightness Gastrointestinal: Negative. Endocrine: Negative. Genitourinary: Negative. Musculoskeletal: Positive for arthralgias. Skin: Negative. Allergic/Immunologic: Negative. Neurological: Negative. Hematological: Negative. Psychiatric/Behavioral: Negative. All other systems reviewed and are negative. Breast: Negative. Objective Vitals: 24hr Min/Max: Temp Min: 36.6 ??C (97.9 ??F) Max: 36.6 ??C (97.9 ??F) Pulse Min: 76 Max: 86 BP Min: 120/58 Max: 131/67 Resp Min: 10 Max: 21 SpO2 Min: 96 % Max: 98 % Most Recent : Vitals: 11/25/23 0956 BP: 120/58 Pulse: 76 Resp: 16 Temp: SpO2: 96% No intake/output data recorded. No intake/output data recorded. Physical Exam: Must include at least two elements each from the nine organ systems for comprehensive exam : Physical Exam Vitals reviewed. Constitutional: General: She is not in acute distress. Appearance: She is well-developed. She is obese. HENT: Head: Normocephalic and atraumatic. Nose: Nose normal. Mouth/Throat: Mouth: Mucous membranes are moist. Eyes: Conjunctiva/sclera: Conjunctivae normal. Pupils: Pupils are equal, round, and reactive to light. Cardiovascular: Rate and Rhythm: Normal rate and regular rhythm. Heart sounds: Normal heart sounds. No murmur heard. No friction rub. No gallop. Comments: Distant heart tones Pulmonary: Effort: Pulmonary effort is normal. Breath sounds: Normal breath sounds. Abdominal: General: Bowel sounds are normal. There is no distension. Palpations: Abdomen is soft. Tenderness: There is no abdominal tenderness. Musculoskeletal: General: No swelling. Normal range of motion. Cervical back: Neck supple. Skin: General: Skin is warm and dry. Neurological: General: No focal deficit present. Mental Status: She is alert and oriented to person, place, and time. Psychiatric: Mood and Affect: Mood normal. Behavior: Behavior normal. Judgment: Judgment normal. Lab/Radiology/Diagnostic Review: Laboratory review: reviewed the laboratory result(s) as below Imaging review: I have reviewed the result(s) as below Echocardiogram review: I have reviewed recent stress ECHO, as below Lab results in the last 24 hours: Recent Results (from the past 24 hour(s)) POCT glucose Collection Time: 11/25/23 8:06 AM Result Value Ref Range Glucose, POC 111 70 - 199 mg/dL CBC without differential Collection Time: 11/25/23 8:50 AM Result Value Ref Range WBC 7.0 3.8 - 9.9 K/cumm Hgb 10.6 (L) 11.9 - 15.5 g/dL Hct 32.2 (L) 35.6 - 45.5 % Plt 165 150 - 400 K/cumm MPV 11.2 9.1 - 12.3 fL RBC 3.65 (L) 3.90 - 5.20 M/cumm MCV 88.2 81.3 - 96.4 fL MCH 29.0 27.1 - 33.3 pg MCHC 32.9 32.3 - 35.7 g/dL RDW CV 12.5 11.1 - 14.9 % RDW SD 40.1 35.7 - 48.1 fL NRBC abs 0.00 0.00 - 0.01 K/cumm , Chemistry CMP: Lab Results Component Value Date GLUCOSE 111 11/25/2023 , CBC: Lab Results Component Value Date WBC 7.0 11/25/2023 RBC 3.65 (L) 11/25/2023 HGB 10.6 (L) 11/25/2023 HCT 32.2 (L) 11/25/2023 MCV 88.2 11/25/2023 MCH 29.0 11/25/2023 MCHC 32.9 11/25/2023 RDWCV 12.5 11/25/2023 RDWSD 40.1 11/25/2023 MPV 11.2 11/25/2023 NRBCABS 0.00 11/25/2023 , Coags: No results found for: SC , PT , PTT , APTT , FFN , FIBRINOGEN , INR , ACTIVATEDCL , Lipids: No results found for: CHOL , CHLPL , HDL , LDLCALC , TRIG , CHOLHDL , Cardiac Enzymes: No results found for: CKTOTAL , CKMB , CKMBINDEX , TROPONINT and POC Glucose: Lab Results Component Value Date GLUCOSE 111 11/25/2023 Stress Echo Pharmacologic W Doppler/CF Patient name: Isabelle Lutz Date of test: 11/15/2023 Hospital #: [id number] Location: [facility] Interpreted by: Vandana Isaacs MD Air Conditioning Sheet Metal Installer: Olimpia Brandon RDCS RN: Shelby Jacobo RN Reason for Test: Dyspnea Study quality: Technically good Referring Physician: GAURAV ROBLERO MD Contrast Agent: 3.0 ml Optison Administered BASELINE STUDY: Wall Motion Scoring (1=Normal 2=Hypo 3=Akinetic 4=Dyskin./Aneurysm 0=Not visualized) Parasternal Long [place]:MAS=1 BAS=1 MIL=2 ROBERT=2 Parasternal Short [place]:MAS=1 MIS=1 OK=1 MIL=2 MAL=1 MA=1 Apical 4 Chambers:=1 MIS=1 BIS=3 BAL=1 MAL=1 AL=1 AC=3 Apical 2 Chambers:AI=1 OK=1 BI=3 BA=1 MA=1 AA=2 AC=3 Ejection Fraction: [...] No MS/ mild MR; No TR; No SC. Diastolic Function: Grade I (impaired relaxation) with nl est filling pressures.Unable to estimate PASP d/t inadequate TR jet. Baseline HR: 77 Baseline BP: 115/57 Conduction Defects: RBBB + LAFB Resting [facility] Medications: Lasix, Aspirin, Lipitor, evothyroxine, Metformin, Insulin Meds held: none POST DOBUTAMINE STUDY: Wall Motion Scoring (1=Normal 2=Hypo 3=Akinetic 4=Dyskin./Aneurysm 0=Not visualized) Parasternal Long [place]:MAS=1 BAS=1 MIL=3 ROBERT=3 Parasternal Short [place]:MAS=1 MIS=1 OK=1 MIL=3 MAL=1 MA=1 Apical 4 Chambers:=1 MIS=1 BIS=1 BAL=1 MAL=1 AL=1 AC=2 Apical 2 Chambers:AI=1 OK=1 BI=3 BA=1 MA=1 AA=1 AC=2 Intravenous dobutamine [...] ischemia at rest. Above d/w Dr. Tammy Aflaro. Revised on 11/15/2023 - 13:54:34 by Vandana Isaacs MD By signing this report, the attending manager resort certifies that he or she has personally supervised and interpreted the echocardiogram and has reviewed and or edited and agrees with the written comments contained within the report. LHC: Hemodynamics: Systemic aortic blood pressure was 125/80. [...] system. Occluded in the proximal segment with [id number] septal collaterals from the LAD COMPLICATIONS: None. [...] discussed with the referring physician and patient. ASSESSMENT/PLAN #MV CAD #T2 DM #LV dysfunction 73y/o F with DM, glaucoma, HTN, hypothyroidism, CKD-stage3, HLD,obesity, recently positive stress test who presented to [facility] today for LHC. LHC today showed severe MV CAD with SQL SSIS DEVELOPER of RCA, heavily calcified disease in the prox CX, diffuse heavily calcified disease in the prox LAD with severe lesion in the mid-apical LAD. CTS is consulted for CABG evaluation. She appears to be a reasonable CABG candidate. STS Scores as below. Dr. Treviño to review cath films; concern for suboptimal LAD target. STS Risk scores: Operative Mortality 1.87% Morbidity & Mortality 9.02% Stroke 1.03% Renal Failure 2.55% Reoperation 1.61% Prolonged Ventilation 4.8% Deep Sternal Wound Infection 0.855% Long Hospital Stay (>14 days) 5.3% Short Hospital Stay (<6 days)* 28.9% Further recs, pending Dr. Treviño's review. Would need the following tests if pursuing CABG: LE vein mapping, carotid dopplers. Continue medical management of CAD: ASA, statin. She should be on a BB. She has PRN SL nitro. No new Assessment & Plan notes have been filed under this hospital service since the last note was generated. Service: Cardiothoracic Surgery Principal Problem: Abnormal stress echocardiogram Patient discussed with Dr. Treviño, who will determine the final recommendations. Jessica Gutierrez NP Cosigned by Stan Treviño MD at 11/27/2023 4:46 PM CDT Associated attestation - Stan Treviño MD - 11/27/2023 4:46 PM CDT I have seen and examined the patient on 11/25/2023. I agree with the findings and plan of care . documented in this encounter Miscellaneous Notes * Perioperative Nursing Note - Monalisa Saul RN - 11/25/2023 2:00 PM CDT Isabelle Lutz discharged home with education given regarding aftercare s/p left heart cath. Pt is A&Ox4, VSS. right radial cath site is without complication, no hematoma or bleeding noted. Pt eating/drinking without nausea or vomiting. Patient ambulated in ortiz/to bathroom without complaints of dizziness or lightheadedness. Voided without difficulty. Patient is being discharged to home /self care per MD order. JAMES Lopez with CT surgery in to see patient, plan of care discussed with patient and daughter. Patient to follow up - ok to discharge to home today. All belongings returned to patient, IV(s) removed and AVS reviewed and signed by patient. Patient discharged via ambulatory. Patient is being discharged to home/self care in care of daughter. * Pre-Sedation Documentation - Adrianna Vargas NP - 11/25/2023 7:30 AM CDT Sedation Plan ASA 2 - Mild systemic disease Sedation/Anesthesia Plan - moderate sedation Risks, benefits, and alternatives discussed with patient. History of sedation/Anesthesia complications:No History of transfusion reaction: No Current Facility-Administered Medications Medication Dose Route Frequency Provider Last Rate Last Admin Carrier Fluids for Secondary Infusion - 0.9% Sodium Chloride 30 mL intravenous PRN Adrianna Vargas, JAMES sodium chloride 0.9% bolus 267 mL 3 mL/kg intravenous Once Adrianna Vargas NP Followed by sodium chloride 0.9% infusion 1 mL/kg/hr intravenous Continuous Adrianna Vargas, JAMES sodium chloride 0.9% flush 0.5-20 mL 0.5-20 mL intra-catheter Q8H LAMONTE Adrianna Vargas NP sodium chloride 0.9% flush 0.5-20 mL 0.5-20 mL intra-catheter PRN Adrianna Vargas, JAMES Laboratory review: Chemistry BMP No results found for: GLUCOSE , CALCIUM , SODIUM , POTASSIUM , CO2 , BUNSER , CREATININE , CBC:No results found for: WBC , RBC , HGB , HCT , MCV , MCH , MCHC , RDW , RDWCV , RDWSD , MPV , NRBC , NRBCABS , NRBCPCT , and Coags: No results found for: SC , PT , PTT , APTT , FFN , FIBRINOGEN , INR , ACTIVATEDCL Current meds/Labs/Test Results that may affect sedation reviewed: Yes Last PO Intake: after midnight HEENT Exam: negative Sedation Plan: Moderate Cosigned by Kvng Gibson MD at 11/25/2023 8:01 AM CDT * Pre-Cardiac Catheterization Workup and H&P - Malika Rock RN - 11/20/2023 2:45 PM CDT PRE-CARDIAC CATHETERIZATION WORKUP Patient Name: Isabelle Lutz Patient Patient : 1950 Date of Procedure: 11/25/2023 ORDERING RIG OPERATOR: Surgeon(s): Kvng Gibson MD Procedure(s): Right Left Heart Catheterization with Coronary Angiography with or without Left Ventriculography 13221 Requested Diagnostic: [] Coronary Angiograms Only [] Left Heart Cath [] LV Gram [] Right Heart Cath [x] Right and Left Heart Cath Valve Study: [] Aortic [] Mitral [] Pulmonic [] Tricuspid [] Pulmonary HTN Study [] Pericardial Constriction Study [] Congential Study [] Other Study: Requested Intervention: [] Coronary [] FFR [] Percutaneous VAD [] IAPB [] Pericardiocentesis [] Vascular [] Renal Valvuloplasty: [] Aortic [] Mitral [] Pulmonic [] Tricuspid Strucutural Heart: [] ASD/PFO Closure [] VSD Closure [] TAVR [] Other Intervention: NARRATIVE: 73 y.o. female with history of osteoarthritis, hypothyroidism, HTN, HLD, DM, and CKD. Over the past2 months, patient reports ROSE ie. Walking up a flight of stairs or longer than one block on level ground that resolves with rest. Also reports occasional episodes of chest tightness describes a feeling of lower jaw tightness like when having a dental cavity that needs addressed that occurs both at rest and with exertion. Denies any nausea or diaphoresis. Had + stress test on 11/15/23. Referred for RL for further evaluation. ALLERGIES: Pseudoephedrine and Valacyclovir Topical Iodine Allergy: [x] No [] Yes IV Contrast Allergy: [x] No [] Yes If yes, Premedicated for contrast allergy: [] No [] Yes PRE-Procedure Medications Antiarrhythmic Agent: [] Yes [x] No [] Contraindicated Aspirin: [x] Yes [] No [] Contraindicated Beta Triston (Any): [] Yes [x] No [] Contraindicated Ca Channel Triston (Any): [] Yes [x] No [] Contraindicated Long Acting Nirates (Any): [] Yes [x] No [] Contraindicated Non-Statin (Any): [] Yes [x] No [] Contraindicated Ranolazin: [] Yes [x] No [] Contraindicated Statin (Any): [x] Yes [] No [] Contraindicated Indications for Music Intern visit (Select all that apply): [] ACS less than or equal to 24 hours [] ACS greater than 24 hours [] Stable/Known CAD [] Cardiac Arrhythmia [] Post Cardiac Transplant [x] New Onset Angina less than or equal to 2 months [x] Suspected CAD [] Worsening Angina [] Cardiomyopathy [] Pre-operative evaluation [] Valvular Disease [] LV Dysfunction [] Evaluation for Exercise Clearance [] Syncope [] Pericardial Disease [] Resuscitated Cardiac Arrest [] Congenital Heart Disease [] Evaluate CAD [] Pre-Transplant Evaluation [x] Abnormal Stress Test [] Pulmonary HTN [] Heart Failure [] Other: Chest Pain Symptom Assessment: [] Typical Angina [x] Atypical Angina [] Non-anginal Chest Pain [] Asymptomatic HISTORY AND RISK FACTORS Family History of Premature CAD: [] Yes [x] No [] Male less than 55 years old [] Female less than 65 years old Relationship: Cerebrovascular Disease: [] Yes [x] No Hypertension: [x] Yes [] No Diabetes Mellitus: [x] Yes [] No Dyslipidemia: [x] Yes [] No Peripheral Arterial Disease: [] Yes [x] No Chronic Lung Disease: [] Yes [x] No Prior Heart Failure: [] Yes [x] No [x] CKD [] ESRD [] Dialysis [] HD []PD: Prior OK: [] Yes [x] No If Yes, Most Recent OK Date: Tobacco Use Social History Tobacco Use Smoking Status Never Smokeless Tobacco Never If Current - Every Day and Cigarettes, Amount: Previous Cardiac and Peripheral Interventions: (Include hospital/procedure/most recent date) Cardiac Cath/Prior PCI:[] Yes [x] No If Yes, Most Recent PCI Date: Report Available: [] Yes [] No Prior CABG: [] Yes [x] No If Yes, Most Recent CABG Date: Report Available: [] Yes [] No Valvular Surgery: [] Yes [x] No Report Available: [] Yes [] No (Include percutaneous procedures): Peripheral Intervention: [] Yes [x] No Report Available: [] Yes [] No LABS Results for orders placed or performed during the hospital encounter of 11/15/23 Comprehensive metabolic panel Result Value Ref Range Sodium 147 (H) 135 - 145 mmol/L Potassium, pl 3.7 3.3 - 4.9 mmol/L Chloride 113 (H) 97 - 110 mmol/L CO2 23 22 - 32 mmol/L Anion gap 11 2 - 15 mmol/L BUN 27 (H) 6 - 25 mg/dL Creatinine 1.04 0.60 - 1.10 mg/dL Glucose 77 70 - 199 mg/dL Calcium 9.4 8.5 - 10.3 mg/dL Bilirubin, total 0.3 0.1 - 1.2 mg/dL Protein, pl 6.9 6.5 - 8.5 g/dL Albumin 4.3 3.5 - 5.0 g/dL Alk phos 89 40 - 130 Units/L ALT 20 7 - 45 Units/L AST 28 10 - 45 Units/L Magnesium Result Value Ref Range Magnesium 1.9 1.4 - 2.5 mg/dL Pro B-type natriuretic peptide Result Value Ref Range NT-proBNP 2,229 (H) <=300 pg/mL CBC with auto differential Result Value Ref Range WBC 7.8 3.8 - 9.9 K/cumm Hgb 11.5 (L) 11.9 - 15.5 g/dL Hct 35.3 (L) 35.6 - 45.5 % Plt 201 150 - 400 K/cumm MPV 11.2 9.1 - 12.3 fL RBC 3.93 3.90 - 5.20 M/cumm MCV 89.8 81.3 - 96.4 fL MCH 29.3 27.1 - 33.3 pg MCHC 32.6 32.3 - 35.7 g/dL RDW CV 12.3 11.1 - 14.9 % RDW SD 41.1 35.7 - 48.1 fL NRBC abs 0.00 0.00 - 0.01 K/cumm Type and screen Result Value Ref Range ABO Rh A Positive Sergio, indirect Negative Iron profile w/ IBC Result Value Ref Range Iron 69 35 - 145 mcg/dL TIBC 306 250 - 400 mcg/dL Transferrin saturation 23 20 - 50 % Protime-INR Result Value Ref Range PT 12.1 10.3 - 13.7 sec INR 1.06 0.90 - 1.20 aPTT Result Value Ref Range aPTT 30 28 - 38 sec Troponin I high-sensitivity Result Value Ref Range Trop I hs 22 (H) <=17 ng/L Differential, auto Result Value Ref Range Neutrophil abs 5.3 1.5 - 6.5 K/cumm Imm gran abs 0.0 0.0 - 0.1 K/cumm Lymphocyte abs 1.8 0.8 - 3.3 K/cumm Monocyte abs 0.6 0.2 - 0.8 K/cumm Eosinophil abs 0.1 0.0 - 0.5 K/cumm Basophil abs 0.0 0.0 - 0.1 K/cumm Neutrophil pct 67.7 % Imm gran pct 0.4 % Lymphocyte pct 23.1 % Monocyte pct 7.3 % Eosinophil pct 1.0 % Basophil pct 0.5 % Check Sample Result Value Ref Range ABO Rh A Positive eGFR Result Value Ref Range eGFR 56 (L) >=60 mL/min/1.73 m2 Troponin I high-sensitivity Result Value Ref Range Trop I hs 25 (H) <=17 ng/L Troponin I high-sensitivity Result Value Ref Range Trop I hs 20 (H) <=17 ng/L POCT glucose Result Value Ref Range Glucose, POC 78 70 - 199 mg/dL POCT glucose Result Value Ref Range Glucose, POC 111 70 - 199 mg/dL POCT glucose Result Value Ref Range Glucose, POC 84 70 - 199 mg/dL POCT glucose Result Value Ref Range Glucose, POC 124 70 - 199 mg/dL WBC HGB HCT pits PT INR PTT Na K+ Glucose BUN Cr HCG Cath/PCI Indication: [] CAD (without Ischemic Sx) [] Stable Angina [x] New Onset Angina less than or equal to 2 months [] NSTE-ACS [] Other: [] STEMI Symptom Date: Time: [] Thrombolytic [] Yes [] No If Yes, Start Date Time [] Staged PCI, Anginal symptoms stable on Medical Therapy and restricted activity: Anginal Class within 2 weeks [] CCS I [] CCS II [] CCS III [x] CCS IV If AMI: [] Cardiogenic Shock at First Medical Contact [] Systolic Blood Pressure: and Heart Rate: at [facility] [] Cardiac arrest within 24 hours [] Cardiogenic shock within 24 hours [] Cardiogenic shock at start of PCI Heart Failure: [x] Yes [] NO If Yes, Newly Diagnosed: [x] Yes [] No [facility] Class: [] Class I [] Class II [x] Class III [] Class IV HF Type: [] Diastolic [] Systolic [x] Unknown Test Performed (Choose One): [] Exercise Stress Test (w/o imaging) [] Stress Echocardiogram [x] Stress Nuclear [] Stress Imaging w/CMR [] Cardiac CTA If Yes, Result: Result: [] Negative [x] Positive [] Indeterminate IF Positive: Risk/Extent of ischemia: [] Low [x] Intermediate [] High FINDINGS on 11-15-23 Impression: TDS. Maximal Dobutamine Stress Echocardiogram ( MPHR), POSITIVE for myocardial ischemia with hypokinesis of anterior wall and inferior wall and marked hypo/akinesis of the inferolateral wall with associated throat fullness. Basal inferior wall remains akinetic c/w infarction. Pt's throat fullness resolved with SLNTGx1 and resolution of WMA. Concern for multivessel disease and ischemia at rest. Above d/w Dr. Tammy Alfaro. LVEF Assessed: [x] Yes [] No If yes, Most recent LVEF 45%: ECHO: Nurse Coordinator: Amador Rock RN Date: 11-20-23 Time: 150 PHYSICAL EXAM There were no vitals filed for this visit. General: NAD HEENT: EOMI, oropharynx clear Neck: Supple without thyromegaly Lungs: CTAB Cardiac: RRR, no LE edema. Abdomen: soft, nontender, nondistended Extremities: warm, no clubbing/cyanosis Neuro: grossly intact Psych: normal affect, mood, judgment Pulses Carotid/Bruit Brachial Radial Femoral/Bruit Popiteal DP PT Left Right EKG: sinus rhythm, frequent PVCs, RBBB IMPRESSION: 73yoF with abnormal stress test here for [facility] Clinical Frailty Scale: [] 1: Very Fit [] 2: Well [] 3: Managing Well [x] 4: Vulnerable [] 5: Mildly Frail [] 6: Moderately Frail [] 7: Severely Frail [] 8: Very Severely Frail [] 9: Terminally Ill PLAN: Procedure, risks, benefits and alternatives have been explained to the patient. The patient voiced understanding, consent is signed and orders are written. Form Completed/Reviewed and Assessment Completed by: Name: Adrianna Vargas TRANSITIONAL CARE MANAGER-C Date: 11/25/23 Time: 729 Cosigned by Kvng Gibson MD at 11/25/2023 8:01 AM CDT documented in this encounter Plan of Treatment Not on file documented as of this encounter Procedures Procedure Name Priority Date/Time Associated Diagnosis Comments RIGHT AND LEFT HEART CATHETERIZATION Routine 11/25/2023 9:21 AM CDT Abnormal stress echocardiogram CBC WITHOUT DIFFERENTIAL Routine 11/25/2023 8:50 AM CDT POCT GLUCOSE DEVICE Routine 11/25/2023 8 :06 AM CDT documented in this encounter Results * RIGHT AND LEFT HEART CATHETERIZATION (11/25/2023 9:21 AM CDT) Anatomical Region Laterality Modality X-Ray Angiograph y Impressions 11/25/2023 10:22 AM CDT Severe multivessel coronary disease with chronic total occlusion of a large RCA, severe heavily calcified disease in the proximal circumflex, diffuse heavily calcified disease in the proximal LAD with a severe lesion in the mid to apical LAD Elevated left ventricular end diastolic blood pressure.. THERAPEUTIC RECOMMENDATIONS: The patient has diabetes mild LV dysfunction and heavily calcified diffuse coronary disease. ??Bypass she had be a consideration although her LAD target is suboptimal. ??I think PCI is feasible but would be high-risk intervention Aggressive risk factor modification and medical therapy for secondary prevention of coronary artery disease. The case was reviewed and discussed with the referring physician and patient. Narrative 11/25/2023 10:22 AM CDT Images from the original result were not included. ?? Cardiovascular Procedure Center [facility] [address], [address] [place] [id number] CORONARY ANGIOGRAM REPORT Patient: Isabelle Lutz : ?? 1950 MR number: [id number] Date of Service: 11/25/2023 Fork Lift Technician: ?? Kvng Gibson MD Referring physician: ?? Gaurav Roblero INDICATION: ??CHF/Dyspnea NYHA Class 2-3 PATIENT CLINICAL PROFILE: ??Isabelle Lutz is a 73 y.o. female with a history of heart failure with mild LV dysfunction, diabetes, she presented with worsening heart failure symptoms. ??A stress echo was concerning for multivessel coronary disease and so she was subsequently admitted to the hospital. ??Her troponins were negative. ??She was referred for left heart catheterization thereafter in a semi elective manner. PROCEDURE: The risks, benefits and alternatives of the procedures and moderate sedation were explained to the patient and informed consent was obtained. The patient was brought to the wood and wood products labourer and placed on the table. The RIGHT radial artery site was infiltrated with 1% lidocaine. The vessel was accessed using ultrasound guidance. Using the modified Seldinger technique, a wire was threaded into the vessel, and a 6 Fr Sheath was advanced over the wire into the vessel. Left coronary artery angiogram was performed using a 5 Fr ??EBU 3.5 ?? catheter. Right coronary artery angiogram was performed using a 5 Fr JR4 catheter. Left ventricular hemodynamics were measured using EBU catheter, no left ventriculogram was done. I provided direct [id number] moderate conscious sedation which administered by independent trained nurse using fentanyl and Versed for 30 minutes At the end of the procedure, the radial artery sheath was removed with TR band for hemostasis. Patient was transferred to the holding area in stable condition. RESULTS: Hemodynamics: Systemic aortic blood pressure was 125/80. Left ventricular blood pressure was 125/20. There was no gradient on pull back across the aortic valve Coronary Arteriography: Left main coronary: ??Diffuse 30-40% disease in the distal left main, heavily calcified Left anterior descending: ??Moderate-sized vessel which travels to the apex and supplies 3 diagonal branches(diagonal 1 and 3 are moderate size diagonal 2 is relatively small). ??Proximal segment there is a diffuse 40% to 50% stenosis, heavily calcified. ??In the mid apical segment there is a severe 70 80% focal heavily calcified stenosis. ??The apical LAD has mild diffuse disease Left circumflex: ??Large vessel which supplies 3 major OM branches. ??In the proximal segment there is a severe 80% heavily calcified stenosis Right coronary artery: Right dominant system. ??Occluded in the proximal segment with [id number] septal collaterals from the LAD COMPLICATIONS: None. DIAGNOSTIC us Gaurav Roblero NP CV CARDIAC CATH PROCEDURES Final Result * (ABNORMAL) CBC without differential (11/25/2023 8:50 AM CDT) [facility] Signature WBC 7.0 3.8 - 9.9 K/cumm Hgb 10.6(L) 11.9 - 15.5 g/dL [facility] Hct 32.2(L) 35.6 - 45.5 % [facility] Plt 165 150 - 400 K/cumm [facility] MPV 11.2 9.1 - 12.3 fL [facility] RBC 3.65(L) 3.90 - 5.20 M/cumm [facility] MCV 88.2 81.3 - 96.4 fL [facility] MCH 29.0 27.1 - 33.3 pg [facility] MCHC 32.9 32.3 - 35.7 g/dL [facility] RDW CV 12.5 11.1 - 14.9 % [facility] RDW SD 40.1 35.7 - 48.1 fL [facility] NRBC abs 0.00 0.00 - 0.01 K/cumm [facility] Blood 11/25/2023 8:50 AM CDT 11/25/2023 9:22 AM CDT Narrative [facility] - 11/25/2023 9:37 AM CDT To be drawn after hydration bolus complete us Adrianna Vargas NP LAB BLOOD ORDERABLES Final Re sult [facility] Department [place] [employer] [place] [address] * POCT glucose (11/25/2023 8:06 AM CDT) [facility] Glucose, POC 111 70 - 199 mg/dL Blood 11/25/2023 8:06 AM CDT 11/25/2023 8:06 AM CDT us Kvng Gibson MD LAB POCT ORDERABLES - DEVICE Final Result [facility] [employer] [place] [address] documented in this encounter Visit Diagnoses Diagnosis Abnormal stress echocardiogram- Primary Abnormal stress echocardiogram documented in this encounter Admitting Diagnoses Diagnosis Abnormal stress echocardiogram documented in this encounter Administered Medications Inactive Administered Medications - up to 3 most recent administrations Medication Order MAR Action Action Date Dose Rate Site aspirin chewable tablet 162 mg 162 mg, oral, Once, On Sat11/25/23 at 0830, For 1 dose, Pre-Procedure (CV) Given 11/25/2023 8:22 AM CDT 162 mg Carrier Fluids for Secondary Infusion - 0.9% Sodium Chloride 30 mL, intravenous, As needed, For priming tubing and/or flushing, Starting on Sat11/25/23 at 0652, Pre-Procedure (CV), 0-250 ml/hr to flush line after IV infusions when no maintenance IV ordered. Infuse 30mL at the same rate as the secondary infusion. Run as primary IV, not intended for KVO. fentaNYL (SUBLIMAZE) preservative free injection Code/trauma/sedation medication, Starting on Sat11/25/23 at 0843, Intra-Procedure (CV) Given 11/25/2023 9:00 AM CDT 25 mcg Given 11/25/2023 8:43 AM CDT 25 mcg heparin 1,000 unit/mL injection Code/trauma/sedation medication, Starting on Sat11/25/23 at 0925, Intra-Procedure (CV) Given 11/25/2023 9:25 AM CDT 5,000 Units ioversoL (OPTIRAY 350) injection Code/trauma/sedation medication, Starting on Sat11/25/23 at 0921, Intra-Procedure (CV) Given 11/25/2023 9:21 AM CDT 55 mL lidocaine (XYLOCAINE) 10 mg/mL (1 %) injection Code/trauma/sedation medication, Starting on Sat11/25/23 at 0847, Intra-Procedure (CV), Indications: Administration of Local AnesthesiaIndications:Administra tion of Local Anesthesia Given 11/25/2023 8:47 AM CDT 10 mL Right Wrist midazolam (VERSED) 2 mg/2 mL preservative free injection Administer over 2 Minutes, Code/trauma/sedation medication, Starting on Sat11/25/23 at 0843, Intra-Procedure (CV) Given 11/25/2023 9:00 AM CDT 1 mg Given 11/25/2023 8:43 AM CDT 1 mg niCARdipine (CARDENE) 1 mg/10 mL in sodium chloride 0.9% (premix) Code/trauma/sedation medication, Starting on Sat11/25/23 at 0848, Intra-Procedure (CV) Given 11/25/2023 8:48 AM CDT 200 mcg nitroglycerin injection 100 mcg/mL in D5W 10 mL Code/trauma/sedation medication, Starting on Sat11/25/23 at 0848, Intra-Procedure (CV) Given 11/25/2023 8:48 AM CDT 200 mcg sodium chloride 0.9% bolus 267 mL 267 mL (rounded from 267.3 mL = 3 mL/kg ? 89.1 kg), intravenous, Once, On Sat11/25/23 at 0730, For 1 dose, Pre-Procedure (CV), Immediately on arrival (at least 30 minutes prior to procedure) New Bag 11/25/2023 8:08 AM CDT 267 mL sodium chloride 0.9% flush 0.5-20 mL 0.5-20 mL, intra-catheter, Every 8 hours scheduled, First dose on Sat11/25/23 at 0730, Pre-Procedure (CV), Flush volume based on line type and size. sodium chloride 0.9% flush 0.5-20 mL 0.5-20 mL, intra-catheter, As needed, line care, Starting on Sat11/25/23 at 0652, Pre-Procedure (CV), Flush volume based on line type and size. Flush before and after each use. sodium chloride 0.9% infusion 1 mL/kg/hr ? 89.1 kg (89.1 mL/hr), intravenous, Continuous, Starting on Sat11/25/23 at 0730, Pre-Procedure (CV) New Bag 11/25/2023 8:09 AM CDT 1 mL/kg/hr 89.1 m L/hr sodium chloride 0.9% infusion 100 mL/hr, intravenous, Continuous, Starting on Sat11/25/23 at 1000, For 4 hours New Bag 11/25/2023 9:26 AM CDT 100 mL/hr 10 0 mL/hr documented in this encounter Active and Recently Administered Medications Times are shown in CDT. Scheduled Medication Order 11/23/2023 11/24/2023 11/25/2023 aspirin chewable tablet 162 mg (COMPLETED) 162 mg, oral, Once, On Sat11/25/23 at 0830, For 1 dose, Pre-Procedure (CV) 0822 (Given - Provid er: Jacki Marisol Beatrice, RN) sodium chloride 0.9% bolus 267 mL (COMPLETED)(Linked Group 1) 267 mL (rounded from 267.3 mL = 3 mL/kg ? 89.1 kg), intravenous, Once, On Sat11/25/23 at 0730, For 1 dose, Pre-Procedure (CV), Immediately on arrival (at least 30 minutes prior to procedure) 0808 (New Bag - Prov ider: Geovanna Arnold RN) sodium chloride 0.9% flush 0.5-20 mL 0.5-20 mL, intra-catheter, Every 8 hours scheduled, First dose on Sat11/25/23 at 0730, Pre-Procedure (CV), Flush volume based on line type and size. 0730 (Due)1400 (Due) Continuous Medication Order 11/23/2023 11/24/2023 11/25/2023 sodium chloride 0.9% infusion(Linked Group 1) 1 mL/kg/hr ? 89.1 kg (89.1 mL/hr), intravenous, Continuous, Starting on Sat11/25/23 at 0730, Pre-Procedure (CV) 0809 (New Bag - Prov ider: Geovanna Arnold RN)1802 (Due: Stopped) sodium chloride 0.9% infusion 100 mL/hr, intravenous, Continuous, Starting on Sat11/25/23 at 1000, For 4 hours 0926 (New Bag - Prov ider: Geovanna Arnold RN) PRN Medication Order 11/23/2023 11/24/2023 11/25/2023 acetaminophen (TYLENOL) tablet 650 mg 650 mg, oral, Every 4 hours PRN, 1st line for pain, fever, fever greater than 38.3 C, Starting on Sat11/25/23 at 1011, Recovery (CV), Indications: Fever, Pain Carrier Fluids for Secondary Infusion - 0.9% Sodium Chloride 30 mL, intravenous, As needed, For priming tubing and/or flushing, Starting on Sat11/25/23 at 0652, Pre-Procedure (CV), 0-250 ml/hr to flush line after IV infusions when no maintenance IV ordered. Infuse 30mL at the same rate as the secondary infusion. Run as primary IV, not intended for KVO. fentaNYL (SUBLIMAZE) preservative free injection (CANCELED) Code/trauma/sedation medication, Starting on Sat11/25/23 at 0843, Intra-Procedure (CV) 0843 (Given - Provid er: Geovanna Arnold RN)0900 (Given - Provider: Geovanna Arnold, CAPRI) heparin 1,000 unit/mL injection (CANCELED) Code/trauma/sedation medication, Starting on Sat11/25/23 at 0925, Intra-Procedure (CV) 0925 (Given - Provid er: Geovanna Arnold RN) ioversoL (OPTIRAY 350) injection (CANCELED) Code/trauma/sedation medication, Starting on Sat11/25/23 at 0921, Intra-Procedure (CV) 09 (Given - Provid er: David Douglas MD) lidocaine (XYLOCAINE) 10 mg/mL (1 %) injection (CANCELED) Code/trauma/sedation medication, Starting on Sat11/25/23 at 0847, Intra-Procedure (CV), Indications: Administration of Local Anesthesia 0847 (Given - Provid er: David Douglas MD) midazolam (VERSED) 2 mg/2 mL preservative free injection (CANCELED) Administer over 2 Minutes, Code/trauma/sedation medication, Starting on Sat11/25/23 at 0843, Intra-Procedure (CV) 0843 (Given - Provid er: Geovanna Arnold RN)0900 (Given - Provider: Geovanna Arnold RN) niCARdipine (CARDENE) 1 mg/10 mL in sodium chloride 0.9% (premix) (CANCELED) Code/trauma/sedation medication, Starting on Sat11/25/23 at 0848, Intra-Procedure (CV) 0848 (Given - Provid er: David Douglas MD) nitroglycerin injection 100 mcg/mL in D5W 10 mL (CANCELED) Code/trauma/sedation medication, Starting on Sat11/25/23 at 0848, Intra-Procedure (CV) 0848 (Given - Provid er: David Douglas MD) sodium chloride 0.9% flush 0.5-20 mL 0.5-20 mL, intra-catheter, As needed, line care, Starting on Sat11/25/23 at 0652, Pre-Procedure (CV), Flush volume based on line type and size. Flush before and after each use. Linked Groups Order Group 1: sodium chloride 0.9% bolus 267 mL (COMPLETED)Jump to med 267 mL (rounded from 267.3 mL = 3 mL/kg ? 89.1 kg), intravenous, Once, On Sat11/25/23 at 0730, For 1 dose, Pre-Procedure (CV), Immediately on arrival (at least 30 minutes prior to procedure) Followed by sodium chloride 0.9% infusionJump to med 1 mL/kg/hr ? 89.1 kg (89.1 mL/hr), intravenous, Continuous, Starting on Sat11/25/23 at 0730, Pre-Procedure (CV) documented in this encounter Orders Medications Ordered That Alan ht Not Have Been Administered Count Last Ordered Date First Ordered Date acetaminophen (TYLENOL) tablet 650 mg 1 Carrier Fluids for Secondary Infusion - 0.9% Sodium Chloride 1 11/25/2023 sodium chloride 0.9% flush 0.5-20 mL 2 11/10 Discharge Count Last Ordered Date First Orde red Date DISCHARGE PATIENT 1 11/25/2023 CORE MEASURES Count Last Ordered Date First Ord ered Date REASON FOR NO VTE PROPHYLAXIS AT ADMISSION 1 11/25/2023 documented in this encounter Care Teams Chlorine Cells Operator Relationship Specialty Start Date End Date Elpidio Serrato MD PCP - General Internal Medicine 06/09/18 documented as of this encounter
--- OUTSIDE RECORDS SUMMARY | 2024-04-29 14:07 | XMS_ITS | Encounter Summary ---
Author Organization [facility] Address [address] [place] [address] Phone Care Team Providers Care Senior Accountant Analyst Name Role Phone Elpidio Serrato MD Primary Care Provider [phone] Encounter Details Date Type Department Care Team (Late st Contact Info) Description 11/03/2023 Orders Only [facility] Endocrinology Metabolism and Lipid [address] [facility] Advanced Medicine 13th [place] [address] [place] [address] Merna Bell MD [address] [facility] [address] [place], [place] [id number] Acute cystitis without hematuria (Primary Dx) Social History Tobacco Use Types [...] on file Legal 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 She is taking her BP at home and finds values of 90/50 to 110/75 mmHg. HR is 60 - 77. She feels OK, has not been walking so is not sure whether her ROSE is betteror not. She is no SOB at rest or at night. Labs show improved K+, pt continues to take furosemide, but is off olmesartan. She has not started amlodipine and will hold off. UA showed possible UTI, but I did not order a culture. I have sent in a prescription for Cipro, 500mg bid X5 days, since I am concerned about UTI with Jardiance. She has an appointment with cardiology at November 18, which will be helpful. documented in this encounter Plan of Treatment Not on file documented as of this encounter Visit Diagnoses Diagnosis Acute cystitis without hematuria- Primary documented in this encounter Care Teams Senior Accountant Analyst Relationship Specialty Start Date End Date Elpidio Serrato MD PCP - General Internal Medicine 06/09/18 documented as of this encounter
--- OUTSIDE RECORDS SUMMARY | 2024-04-29 14:07 | XMS_ITS | Encounter Summary ---
Author Organization [facility] Address [address] [place] [address] Phone Care Team Providers Care Credit Verifier Name Role Phone Elpidio Serrato MD Primary Care Provider [phone] Encounter Details Date Type Department Care Team (Late st Contact Info) Description 11/20/2023 Orders Only [facility] Cardiology [address] [facility] Advanced Medicine 8th [place] [address] [place] [address] Rater, JAMES Dunlap [address] [facility] [address] [place] [address] Abnormal stress echocardiogram (Primary Dx) Social History Tobacco Use Types [...] on file Legal Sex Female 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
--- OUTSIDE RECORDS SUMMARY | 2024-04-29 14:07 | XMS_ITS | Encounter Summary ---
Author Organization [facility] Address [address] [facility] [address] [place] [address] Phone Care Team Providers Care Chart Snatcher Name Role Phone Elpidio Serrato MD Primary Care Provider [phone] Encounter Details Date Type Department Care Team (Latest Contact Info) Description 11/28/2023 10:30 AM CDT Office Visit [facility] Cardiothoracic Surgery [address] [facility] 8th Floor [address] Room [address] [address] Stan Treviño MD [address] [facility] [id number] [place] [address] Coronary artery disease involving [place] heart, unspecified vessel or lesion type, unspecified [...] on file Legal 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 Female 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 Gender Identity Female 05/13/2021 4:21 PM JET HANDLER Sexual Orientation Not on file documented as of this encounter Last Filed Vital Signs Vital Sign Reading Time Taken Comments Blood Pressure 105/68 11/28/2023 9:37 AM CDT Pulse 79 11/28/2023 9:37 AM CDT Temperature - - Respiratory Rate - - Oxygen Saturation 99% 11/28/2023 9:37 AM CDT Inhaled Oxygen Concentration - - Weight 92.4 kg (203 lb 9.6 oz) 11/28/2023 9:37 A M CDT Height 149.9 cm (4' 11 ) 11/28/2023 9:37 AM CDT Body Mass Index 41.12 11/28/2023 9:37 AM CDT documented in this encounter Progress Notes * Columba Leslie, BENCH TOOL MAKER - 11/28/2023 10:30 AM CDT DATE OF CONSULTATION: 11/28/23 REFERRING PROVIDER: Dr. Gibson REASON FOR CONSULTATION: coronary artery disease CHIEF COMPLAINT: chest discomfort HISTORY OF PRESENTING ILLNESS: Ms. Isabelle Lutz is a 73 year old female with PMH of DM, glaucoma, HTN, hypothyroidism, CKD-stage3, HLD,obesity, recently positive stress test who presented to [facility] for LHC. She has been experiencingexertional dyspnea with associated occasional throat tightness over the past 3 months. Due to these symptoms, she had a stress test on 11/14 which was positive for ischemia with HK of the anterior walland inferior wall with marked hypo/akinesis of the inferolateral wall with associated throat fullness. Also noted was akinetic basal inferior wall c/w infarctions. She was given SL nitro with relief of symptoms and admitted to the hospital for observation following this. Her troponins were relatively unremarkable: 22 > 25> 20; no acute EKG changes; no recurrence of symptoms. Therefore, she was discharged from the hospital the following day with LHC scheduled in the near future. 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 CTS is consulted for CABG evaluation. She states since LHC she has felt well. She denies shortness of breath, chest pain, orthopnea, PND, dizziness, or palpitations today. She does continue to have lower extremity edema at times. REVIEW OF SYSTEMS: All other 12 systems reviewed and were negative unless stated in the HPI. PAST MEDICAL HISTORY: Past Medical History: Diagnosis Date Cataract CHF [...] 08/01/06 (Added by TW Conv) Thyroid disease PAST SURGICAL HISTORY: Past Surgical History: Procedure Laterality Date CATARACT EXTRACTION Right 06/14/2022 CE/IOL + goniotomy OK APPENDECTOMY unkown dates per pt OK DELIVERY ONLY Section - in 1972 and 1975 (Added by TW Conv) OK TENDON SHEATH INCISION Hand Incision Tendon Sheath Of A Finger - right hand, III finger, 08/20 (Added by TW Conv) ALLERGIES: Allergies Allergen Reactions Pseudoephedrine Palpitations Valacyclovir Other (See comments) put me in renal failure HOME MEDICATIONS: Current Outpatient Medications: acetaminophen (TYLENOL) 325 mg tablet, Take 2 tablets (650 mg total) by mouth every 6 (six) hours as needed for pain, Disp: , Rfl: aspirin 81 mg enteric coated tablet, Take 1 tablet (81 mg total) by mouth daily before breakfast, Disp: , Rfl: atorvastatin (LIPITOR) 40 mg tablet, Take 1 tablet (40 mg total) by mouth daily, Disp: 90 tablet, Rfl: 3 blood glucose diagnostic (glucose blood) strip, Testing once daily, Disp: 100 each, Rfl: 2 brimonidine-timoloL (Combigan) 0.2-0.5 % ophthalmic solution, Administer 1 drop into the left eye 2(two) times a day, Disp: 15 mL, Rfl: 3 calcium carbonate (TUMS) 500 mg (200 mg elemental calcium) chewable tablet, Take 1 tablet/chew tab (500 mg total) by mouth daily, Disp: 90 tablet/chew tab, Rfl: 3 empagliflozin (Jardiance) 10 mg tablet, Take 1 tablet (10 mg total) by mouth daily, Disp: 90 tablet, Rfl: 3 ergocalciferol (VITAMIN D) 50,000 unit capsule, TAKE 1 CAPSULE BY MOUTH ONCE WEEKLY, Disp: 12 capsule, Rfl: 1 furosemide (LASIX) 20 mg tablet, Take 1 tablet (20 mg total) by mouth daily, Disp: 30 tablet, Rfl: 11 insulin aspart (NovoLOG) 100 unit/mL (3 mL) pen for injection, Inject 12 Units under the skin 3 (three) times a day, Disp: 45 mL, Rfl: 2 insulin glargine (BASAGLAR) 100 unit/mL (3 mL) pen for injection, Inject 50 Units under the skin daily before breakfast, Disp: 45 mL, Rfl: 3 insulin lispro (HumaLOG, ADMELOG) 100 unit/mL vial for injection, Inject 8-12 Units under the skin daily with lunch, Disp: , Rfl: latanoprost (XALATAN) 0.005 % ophthalmic solution, INSTILL 1 DROP INTO BOTH EYES NIGHTLY, Disp: 7.5mL, Rfl: 3 levothyroxine (SYNTHROID) 88 mcg tablet, TAKE 1 TABLET BY MOUTH EVERY DAY, Disp: 90 tablet, Rfl: 3 metFORMIN (GLUCOPHAGE) 500 mg tablet, Take 1 tablet (500 mg total) by mouth daily, Disp: 90 tablet,Rfl: 3 nitroglycerin (NITROSTAT) 0.4 mg SL tablet, Place 1 tablet (0.4 mg total) under the tongue every 5 (five) minutes as needed for chest pain, Disp: 90 tablet, Rfl: 1 pen needle, diabetic (BD Ultra-Fine Hailee Pen Needle) 32 gauge x 5/32 needle, Use 4X daily, Disp: 300 each, Rfl: 3 semaglutide (OZEMPIC) 2 mg/dose (8 mg/3 mL) pen injector injection, Inject 2 mg under the skin oncea week, Disp: 9 mL, Rfl: 3 FAMILY HISTORY: Family History Problem Relation Age of Onset Heart disease Other Heart Disease - mother (Added by TW Conv) Hypertension Other Hypertension - mother (Added by TW Conv) Thyroid disease Other Thyroid Disorder - mother (Added by TW Conv) Diabetes type II Other Type II Diabetes Mellitus - mother (Added by TW Conv) Anesthesia problems Neg Hx SOCIAL HISTORY:. Social History Tobacco Use Smoking status: Never Smokeless tobacco: Never Substance and Sexual Activity Drug use: Never Sexual activity: Defer Alcohol Use: Not At Risk (11/25/2023) AUDIT-C Frequency of Alcohol Consumption: Never Average Number of Drinks: Patient does not drink Frequency of Binge Drinking: Never PHYSICAL EXAMINATION: Vital Signs: Vitals BP 105/68 Pulse 79 Ht 149.9 cm (4' 11 ) Wt 92.4 kg (203 lb 9.6 oz) SpO2 99% BMI 41.12 kg/m?? General: No acute distress HEENT: Normocephalic, extraocular muscles intact, anicteric sclera, no oral lesions Neck: No JVD Respiratory: clear to auscultation bilaterally Cardiovascular: Regular rate and rhythm, no murmur Abdomen: Soft, non-tender, non-distended Neurologic: alert, oriented x 3, symmetric movement of bilateral upper and lower extremities Skin: no lesions on exposed areas Extremities: no edema bilaterally Psychiatric: normal mood and affect DIAGNOSTIC DATA: I have personally reviewed the following: Stress Echo Pharmacologic W Doppler/CF Patient name: Isabelle Lutz Date of test: 11/15/2023 Hospital #: [id number] Location: [facility] Interpreted by: Vandana Isaacs MD Flake Cutter Operator: Olimpia Brandon RDCS RN: Shelby Jacobo RN Reason for Test: Dyspnea Study quality: Technically good Referring Physician: GAURAV ROBLERO MD Contrast Agent: 3.0 ml Optison Administered BASELINE STUDY: Wall Motion Scoring (1=Normal 2=Hypo 3=Akinetic 4=Dyskin./Aneurysm 0=Not visualized) Parasternal Long Altmar:MAS=1 BAS=1 MIL=2 ROBERT=2 Parasternal Short [place]:MAS=1 MIS=1 RI=1 MIL=2 MAL=1 MA=1 Apical 4 Chambers:=1 MIS=1 BIS=3 BAL=1 MAL=1 AL=1 AC=3 Apical 2 Chambers:AI=1 RI=1 BI=3 BA=1 MA=1 AA=2 AC=3 Ejection Fraction: [...] No MS/ mild MR; No TR; No OK. Diastolic Function: Grade I (impaired relaxation) with nl est filling pressures.Unable to estimate PASP d/t inadequate TR jet. Baseline HR: 77 Baseline BP: 115/57 Conduction Defects: RBBB + LAFB Resting ECG Comments: Oriana Jensen Medications: Lasix, Aspirin, Lipitor, evothyroxine, Metformin, Insulin Meds held: none POST DOBUTAMINE STUDY: Wall Motion Scoring (1=Normal 2=Hypo 3=Akinetic 4=Dyskin./Aneurysm 0=Not visualized) Parasternal Long Altmar:MAS=1 BAS=1 MIL=3 ROBERT=3 Parasternal Short [place]mar:MAS=1 MIS=1 RI=1 MIL=3 MAL=1 MA=1 Apical 4 Chambers:=1 MIS=1 BIS=1 BAL=1 MAL=1 AL=1 AC=2 Apical 2 Chambers:AI=1 RI=1 BI=3 BA=1 MA=1 AA=1 AC=2 Intravenous dobutamine [...] MD By signing this report, the attending hvac sheet metal installer certifies that he or she has personally [...] system. Occluded in the proximal segment with [id number] septal collaterals from the LAD COMPLICATIONS: None. [...] discussed with the referring physician and patient. ASSESSMENT AND PLAN: Ms. Isabelle Lutz is a 73 year old female referred to the cardiothoracic surgery clinic for evaluation of coronary artery disease. She currently endorses NYHA class II symptoms today. Dr. Treviño discussed surgical coronary artery revascularization risks and benefits which are but not limited to bleeding, stroke, infection, renal failure, respiratory failure and . She will need additional preoperative testing with CT C/A/P with contrast, vein mapping, carotid dopplers, and PFT testing for preoperative planning. Once completed, we will further discuss an operative date in the next few weeks. Thank you for allowing us to participate in the care of this very pleasant patient. Please feel free to contact our office at [phone] with any questions or concerns regarding her care. Sincerely, Columba Leslie, MSN, FOREST RANGER-[facility] Division of Cardiothoracic Surgery Cosigned by Stan Treviño MD at 12/02/2023 9:44 AM CDT Associated attestation - Stan Treviño MD - 12/02/2023 9:44 AM CDT I have seen and examined the patient. I agree with the findings and plan of care . My total encounter time on 11/28/2023 was 45 minutes which was spent in the activities documented in the note. This includes time spent prior to the visit and after the visit in direct care of the patient. This time does not include time spent in any separately reportable services. documented in this encounter Plan of Treatment Not on file documented as of this encounter Visit Diagnoses Diagnosis Coronary artery disease involving [place] heart, unspecified vessel or lesion type, unspecified whether angina present- Primary documented in this encounter Care Teams Chart Snatcher Relationship Specialty Start Date End Date Elpidio Serrato MD PCP - General Internal Medicine 06/09/18 documented as of this encounter
--- OUTSIDE RECORDS SUMMARY | 2024-04-29 14:07 | XMS_ITS | Encounter Summary ---
Author Organization [facility] Address [address] [place] [address] Phone Care Team Providers Care Retail Team Member Name Role Phone Elpidio Serrato MD Primary Care Provider [phone] Encounter Details Date Type Department Care Team (Late st Contact Info) Description 11/18/2023 Telephone [facility] Cardiology [address] [facility] 8th [place] [address] [place] [address] Destiny Charles Social History Tobacco Use Types Packs/Day Years [...] feel afraid or unsafe? 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 Gibson's schedule for 11/24. Thanks! * Telephone Encounter - Yumiko Alejo RN - 11/20/2023 11:57 AM CDT S/w patient - she has chosen Saturday, 11/[address] Gibson. Case request submitted. Pt had blood work done on 11/14. * Telephone Encounter - Yumiko Alejo RN - 11/20/2023 11:53 AM CDT Images from the original note were not included. You routed conversation to [facility] Clinical Pool2 hours ago (9:21 AM) Kvng Gibson MD You2 hours ago (9:14 AM) CM If those do not work patient I can also do next the 18 Note Nori Ramirez RN You2 hours ago (9:11 AM) MAKAYLA Calderon-see Dr. Gibson's available dates. When you have a date/schedule pt, please let his office secretary Yisel Keys know so she can add to his calendar. Thanks! Kvng Gibson MD Fuehne, Donna G., RN3 hours ago (8:19 AM) CM Can do tomorrow or Saturday. * Telephone Encounter - Destiny Charles - 11/20/2023 11:42 AM CDT ADDIE PT RETURNING CALL IN REGARDS TO SCHEDULING PROCEDURE * Telephone Encounter - Yumiko Alejo RN - 11/20/2023 9:22 AM CDT LMOR for pt to call. * Telephone Encounter - Yumiko Alejo RN - 11/19/2023 10:31 AM CDT Let pt know that I am getting dates for procedure * Telephone Encounter - Yumiko Alejo RN - 11/19/2023 9:06 AM CDT Msg also sent to Dr. Gibson's team * Telephone Encounter - Yumiko Alejo RN - 11/19/2023 9:06 AM CDT Gage Rockwell RMA Walker, Kinsey Morgan, RN; Gage Rockwell RMA Some available dates for next week are 11/24 & 11/26. * Telephone Encounter - Yumiko Alejo RN - 11/18/2023 10:35 AM CDT Msg sent to [facility] for next avail L/RHC dates. * Telephone Encounter - Yumiko Alejo RN - 11/18/2023 8:50 AM CDT Called and s/w patient - OK to sched pt for C? * Telephone Encounter - Destiny Charles - 11/18/2023 8:02 AM CDT ADDIE PT STATES WAS ADMITTED TO [place] 11/14 FOLLOWING ABNORMAL STRESS ECHO. STATES PER DR CONLEY NEEDS [facility] KIM WITH DR REAL documented in this encounter Plan of Treatment Not on file documented as of this encounter Visit Diagnoses Not on filedocumented in this encounter Care Teams Retail Team Member Relationship Specialty Start Date End Date Elpidio Serrato MD PCP - General Internal Medicine 06/09/18 documented as of this encounter
--- OUTSIDE RECORDS SUMMARY | 2024-04-29 14:07 | XMS_ITS | Encounter Summary ---
Author Organization [facility] Address [address] [place] [address] Phone Care Team Providers Care Automatic Lehr Operator Name Role Phone Elpidio Serrato MD Primary Care Provider [phone] Reason for Referral * Consultation (Routine) - Pending Review Specialty Diagnoses / Procedures Referred By Contact Referred To Contact Physical Medicine and Rehabilitation Diagnoses Pain in both knees, unspecified chronicity Lia Mariano NP [address] [place] [address] Phone: tel:[phone] [phone] [facility] (All Locations) Referral ID Status Reason Start Date Expiration Date Visits Requested Visits Authorized [id number] Pending Review Specialty Services Required 11/19/2023 12/18/2024 1 1 Question Answer Please select the performing region: [facility] (All Locations) [167] # of visits: 1 Comments Prefers [place] or [place] locations Encounter Details Date Type Department Care Team (Latest Contact Info) Description 11/19/2023 11:30 AM CDT Office Visit [facility] Endocrinology Metabolism and Lipid [address] [facility] 13th [place] [address] [place] [address] Lia Mariano NP [address] [place] [address] Benign essential hypertension (Primary Dx); Congestive heart failure, unspecified HF chronicity, unspecified heart failure type (HCC); Type 2 diabetes mellitus with hyperlipidemia (HCC); Age-related osteoporosis without current pathological fracture; Pain in both knees, unspecified chronicity Social History Tobacco Use Types Packs/Day Years [...] on file Legal 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 Gender Identity Female 05/13/2021 4:21 PM TELEVISION INSPECTOR Sexual Orientation Not on file documented as of this encounter Last Filed Vital Signs Vital Sign Reading Time Taken Comments Blood Pressure 104/69 11/19/2023 11:09 AM CDT Pulse 83 11/19/2023 11:09 AM CDT Temperature 36.7 ??C (98.1 ??F) 11/19/2023 11:09 AM C DT Respiratory Rate - - Oxygen Saturation - - Inhaled Oxygen Concentration - - Weight 89.1 kg (196 lb 6.4 oz) 11/19/2023 11:09 AM CDT Height 149.9 cm (4' 11 ) 11/19/2023 11:09 AM CDT Body Mass Index 39.67 11/19/2023 11:09 AM CDT documented in this encounter Patient Instructions * Patient Instructions* Lia Mariano NP - 11/19/2023 11:30 AM CDT 1. Benign essential hypertension Controlled today. Continue your current medications. 2. Congestive heart failure, unspecified HF chronicity, unspecified heart failure type (HCC) Continue furosemide. 3. Type 2 diabetes mellitus with hyperlipidemia (HCC) Continue medication regimen. We discussed stopping the metformin the day prior to your cardiac cath (date to be determined). I also recommend you stop the Jardiance 3 days prior to the cardiac cath. On day of cardiac cath, reduce your Basalgar dose to 30 units. 4. Age-related osteoporosis without current pathological fracture We will likely pursue the Reclast infusion once cardiac evaluation is completed. I will discuss with Dr Bell. 5. Bilateral knee pain. You will avoid Celebrex. Avoid ibuprofen and naproxen. You may use Tylenol for pain. Use according to package directions. Referral to orthopedics. documented in this encounter Ordered Prescriptions Prescription Sig Dispense Quantity Refills Last Filled Start Date End Date nitroglycerin (NITROSTAT) 0.4 mg SL tabletIndications: Congestive heart failure, unspecified HF chronicity, unspecified heart failure type (HCC) Place 1 tablet (0.4 mg total) under the tongue every 5 (five) minutes as needed for chest pain 90 tablet 1 11/19/2023 4 documented in this encounter Progress Notes * Lia Mariano NP - 11/19/2023 11:30 AM CDT Images from the original note [...] was ~260#, steady decline after starting GLP1-RA. A1c in the past year has been 5.4% - 6.0%. 10/2023, it was 5.9%. Interval Hx: CHF noted with ROSE, swelling in BLE and fatigue. ProBNP > 1999. Olmasartan held with decreased GFR. Furosemide 20mg daily started. ProBNP improved to 1600. She was admitted 11/14-11/16/2023 for wall changes following chemical stress test. She plans a PCI in the near future (schedule pending). She reports ntg given during stress test. She reports this relieved her throat/neck fullness - she had noted these symptoms in the prior months but did not associate them with her heart. She does not have mtg at home. She returns for follow up and BP check. No dizziness. Reports exercise tolerance improved with diuretic. No muscle cramps. Currently, no chest pain, neck/throat fullness. Current therapy Lantus/ [id number] units in morning Humalog 8 units with morning meals. 10 units in evening only if BG is > 150. metformin 500 mg AM Ozempic, 2 mg weekly - doses on Saturday. Jardiance 10 mg Daily. CGM Interpretation - Sensor: Our Security Team G6 Mobile - Wear time:99.8 - Indication for placement: Diabetes, insulin use, risk of hypoglycemia - Analysis: Time in range: 82%; 17% high; 1% low - Interpretation: These CGM data show significant variability, likely associated with changing dietary patterns and insulin dosing. Continued post prandial excursions. By way of complications Isabelle Lutz reports [...] (CMS/HCC) (HCC) Coronary artery disease Diabetes mellitus ([facility]) Diabetic retinopathy ([facility]) Glaucoma Hypertension Multiparity History Of ___ Previous [...] by TW Conv) Anesthesia problems Neg Hx Review of Systems Twelve point ROS reviewed and negative except as noted in HPI. All other systems negative. Vitals & Physical Exam Blood pressure 104/69, pulse 83, temperature 36.7 ??C (98.1 ??F), temperature source Temporal, height 149.9 cm (4' 11 ), weight 89.1 kg (196 lb 6.4 oz). Body mass index is 39.67 kg/m??. Physical Exam Vitals reviewed. Constitutional: Appearance: Normal appearance. Cardiovascular: Rate and Rhythm: Normal rate. Heart sounds: Normal heart sounds. No edema Pulmonary: Effort: Pulmonary effort is normal. Breath sounds: Normal breath sounds. Neurological: Mental Status: He is alert. Psychiatric: Mood and Affect: Mood normal. Behavior: Behavior normal. Data Medications, labs, imaging, and diagnostics independently reviewed in Epic and commented on below. Allergies: Pseudoephedrine and Valacyclovir HOME MEDICATIONS : acetaminophen (TYLENOL) 325 mg tablet aspirin 81 mg enteric coated tablet atorvastatin (LIPITOR) 40 mg tablet blood glucose diagnostic (glucose blood) strip brimonidine-timoloL (Combigan) 0.2-0.5 % ophthalmic solution calcium carbonate (TUMS) 500 mg (200 mg elemental calcium) chewable tablet empagliflozin (Jardiance) 10 mg tablet ergocalciferol (VITAMIN D) 50,000 unit capsule furosemide (LASIX) 20 mg tablet insulin aspart (NovoLOG) 100 unit/mL (3 mL) pen for injection insulin glargine (BASAGLAR) 100 unit/mL (3 mL) pen for injection insulin lispro (HumaLOG, ADMELOG) 100 unit/mL vial for injection latanoprost (XALATAN) 0.005 % ophthalmic solution levothyroxine (SYNTHROID) 88 mcg tablet metFORMIN (GLUCOPHAGE) 500 mg tablet pen needle, diabetic (BD Ultra-Fine Hailee Pen Needle) 32 gauge x 5/32 needle semaglutide (OZEMPIC) 2 mg/dose (8 mg/3 mL) pen injector injection Lab Results Component Value Date TSH 0.69 10/29/2023 FREET4 1.38 10/29/2023 Lab Results Component Value Date CHOL 158 10/29/2023 TRIG 101 10/29/2023 HDL 49 (L) 06/25/2022 LDLCALC 91 01/13/2021 LDLDIRECT 92 10/29/2023 Lab Results Component Value Date PTH 71 06/25/2022 25HYDROVITD 40 01/13/2021 Lab Results Component Value Date HGBA1C 5.9 10/29/2023 Assessment & Plan 1. Benign essential hypertension Controlled today. Continue your current medications. I sent in sublingual nitroglycerin for chest pain. If you use this, call 911 and be evaluated in the ER immediately. 2. Congestive heart failure, unspecified HF chronicity, unspecified heart failure type (HCC) As above. Complete PCI. Continue furosemide. 3. Type 2 diabetes mellitus with hyperlipidemia (HCC) Continue medication regimen. We discussed stopping the metformin the day prior to your cardiac cath (date to be determined). I also recommend you stop the Jardiance 3 days prior to the cardiac cath. On day of cardiac cath, reduce your Basalgar dose to 30 units. 4. Age-related osteoporosis without current pathological fracture We will likely pursue the Reclast infusion once cardiac evaluation is completed. I will discuss with Dr Bell. 5. Bilateral knee pain. You will avoid Celebrex. Avoid ibuprofen and naproxen. You may use Tylenol for pain. Use according to package directions. Referral to orthopedics. Complete following hear cath. --LEONARD Caraballo-[facility] Division of Endocrinology, Metabolism, & Lipid Research [address] [place] [address] Cosigned by Merna Bell MD at 11/19/2023 7:27 PM CDT documented in this encounter Plan of Treatment Scheduled Referrals Name Type Priority Associated Diagnoses Orde r Schedule Ambulatory referral to Orthopedic Physiatry Outpatient Referral Routine Pain in both knees, unspecified chronicity Expected: 12/03/2023 (Approximate), Expires: 11/18/2024 documented as of this encounter Visit Diagnoses Diagnosis Benign essential hypertension- Primary Essential hypertension, benign Congestive heart failure, unspecified HF chronicity, unspecified heart failure type (HCC) Type 2 diabetes mellitus with hyperlipidemia (HCC) Age-related osteoporosis without current pathological fracture Pain in both knees, unspecified chronicity documented in this encounter Care Teams Automatic Lehr Operator Relationship Specialty Start Date End Date Elpidio Serrato MD PCP - General Internal Medicine 06/09/18 documented as of this encounter
--- OUTSIDE RECORDS SUMMARY | 2024-04-29 14:07 | XMS_ITS | Encounter Summary ---
Author Organization [facility] Healthcare Address [address] [place] [address] Care Team Providers Care Education Sales Consultant Name Role Phone Elpidio Serrato MD Primary Care Provider [phone] Reason for Visit * Reason Comments SHOP Patient Eligibility Review Encounter Details Date Type Department Care Team (Late st Contact Info) Description 11/18/2023 SHOP/CHAP Initial Eligibility Review [facility]NAG[facility] [address] [place] [address] Inge Dunbar, [facility] [address] [facility] (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
--- OUTSIDE RECORDS SUMMARY | 2024-04-29 14:07 | XMS_ITS | Encounter Summary ---
Author Organization [facility] Address [address] [place] [address] Phone Care Team Providers Care [employer] Distribution Consultant Name Role Phone Elpidio Serrato MD Primary Care Provider [phone] Reason for Referral * Consultation (Routine) - Closed Specialty Diagnoses / Procedures Referred By Constantino alvarado Referred To Contact Cardiology Diagnoses Dyspnea on exertion Merna Bell MD [address] [facility] [facility] [address] [place] [address] Phone: tel: fax: [facility] (All Locations) Referral ID Status Reason Start Date Expiration Date V isits Requested Visits Authorized [id number] Closed Specialty Services Required 10/30/2023 11/28/2024 1 1 Question Answer Please select the performing region: [facility] (All Locations) [[id number]] Is this referral for the [facility]? No # of visits: 1 Comments Pt with increasing ROSE, elevated NT-proBNP Encounter Details Date Type Department Care Team (Late st Contact Info) Description 10/30/2023 Telephone [facility] Endocrinology Metabolism and Lipid [address] [facility] 13th [place] [address] [place] [id number] Merna Bell MD [address] [facility] 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 This is the plan: - Hold irbesartan, but do not start amlodipine due to relatively soft BP at the visit on Saturday - Take lasix as prescribed by Lia Mariano - Avoid fruit and potatoes (high K+ foods, and yes that includes watermelon) - Repeat labs: renal function panel and NT-proBNP on Saturday at [facility] - Go to an ER if SOB gets worse, or occurs at rest - Check your BP and HR at home. - I will re-order a stress test to be done at [facility], hopefully in the near future. Addition work-up would include an ECG, ECHO and CXR, and referral to cardiology here. We'll be in touch about the lab results. Orders Placed This Encounter Procedures Renal function panel Standing Status: Future Number of Occurrences: 1 Standing Expiration Date: 10/29/2024 Troponin I Standing Status: Future Number of Occurrences: 1 Standing Expiration Date: 10/29/2024 N-terminal pro BNP Standing Status: Future Number of Occurrences: 1 Standing Expiration Date: 10/29/2024 Urinalysis reflex to microscopic Standing Status: Future Number of Occurrences: 1 Standing Expiration Date: 10/29/2024 Ambulatory referral to Cardiology Pt with increasing ROSE, elevated NT-proBNP Standing Status: Future Standing Expiration Date: 10/29/2024 Referral Priority: Routine Referral Type: Consultation Referral Reason: Specialty Services Required Referral Location: [facility] (All Locations) Requested Specialty: Cardiology Number of Visits Requested: 1 documented in this encounter Plan of Treatment Scheduled Referrals Name Type Priority Associated Diagnoses Order Schedule Ambulatory referral to Cardiology Outpatient Referral Routine Dyspnea on exertion Expected: 11/06/2023 (Approximate), Expires: 10/29/2024 documented as of this encounter Procedures Procedure Name Priority Date/Time Associated Diagnosis Comments NOTE Routine 11/01/2023 8:30 AM CDT PRO B-TYPE NATRIURETIC PEPTIDE Routine 11/01/2023 8:30 AM CDT URINALYSIS AND REFLEX TO MICROSCOPIC Routine 11/01/2023 8:30 AM CDT Chronic kidney disease (CKD) stage G3b/A1, moderately decreased glomerular filtration rate (GFR) between 30-44 mL/min/1.73 square meter and albuminuria creatinine ratio less than 30 mg/g (HCC) TROPONIN I Routine 11/01/2023 8:30 AM CDT Dyspnea on exertion RENAL FUNCTION PANEL Routine 11/01/2023 8:30 AM CDT Chronic kidney disease (CKD) stage G3b/A1, moderately decreased glomerular filtration rate (GFR) between 30-44 mL/min/1.73 square meter and albuminuria creatinine ratio less than 30 mg/g (HCC) documented in this encounter Results * (ABNORMAL) Pro B-type natriuretic peptide (11/01/2023 8:30 AM CDT) NT PROBNP 1,605(H) <125 pg/mL [facility] 11/01/2023 8:30 AM CDT 11/01/2023 8:31 AM CDT Merna Bell MD LAB BLOOD ORDERABLES Final Re sult [facility] [address] [place] [address] * NOTE (11/01/2023 8:30 AM CDT) Note [facility] Comment: This urine was analyzed for the presence of WBC, RBC, bacteria, casts, and other formed elements. Only those elements seen were reported. 11/01/2023 8:30 AM CDT 11/01/2023 8:31 AM CDT Merna Bell MD LAB BLOOD ORDERABLES Final Re sult Performing Organization Address City/[facility]/ZIP Co de Phone Number [facility] [address] [place] [address] * (ABNORMAL) Urinalysis reflex to microscopic (11/01/2023 8:30 AM CDT) Color, ur YELLOW YELLOW [facility] Appearance, ur CLEAR CLEAR [facility] Specific gravity 1.018 1.001 - 1.035 [facility] pH, ur 5.5 5.0 - 8.0 [facility] Glucose, ur 2+(A) NEGATIVE [facility] Bilirubin, ur NEGATIVE NEGATIVE [facility] Ketones, ur NEGATIVE NEGATIVE [facility] Blood, ur NEGATIVE NEGATIVE [facility] Protein, ur, quant NEGATIVE NEGATIVE [facility] Nitrites, ur POSITIVE(A) NEGATIVE [facility] Leukocyte esterase, ur 2+(A) NEGATIVE [facility] WBC, ur 20-40(A) < OR = 5 /HPF [facility] RBC, ur NONE SEEN < OR = 2 /HPF [facility] Epithelial cells, squamous, ur 0-5 < OR = 5 /HPF [facility] Bacteria, ur, quant MANY(A) NONE SEEN /HPF [facility] Hyaline cast NONE SEEN NONE SEEN /LPF [facility] Urine 11/01/2023 8:30 AM CDT 11/01/2023 8:31 AM CDT Merna Bell MD LAB URINE ORDERABLES Final Re sult Performing Organization Address [facility]/ZIP Co de Phone Number [facility] [address] [place] [address] * Troponin I (11/01/2023 8:30 AM CDT) Troponin I 11 < OR = 47 ng/L [facility] Comment: In accord with published recommendations, serial testing of troponin I at intervals of 2 to 4 hours for up to 12 to 24 hours is suggested in order to corroborate a single troponin I result. An elevated troponin alone is not sufficient to make the diagnosis of NC. Blood 11/01/2023 8:30 AM CDT 11/01/2023 8:31 AM CDT Merna Bell MD LAB BLOOD ORDERABLES Final Re sult Performing Organization Address [facility] Co de Phone Number [facility] [address] [place] [address] * (ABNORMAL) Renal function panel (11/01/2023 8:30 AM CDT) Glucose 103(H) 65 - 99 mg/dL [facility] Comment: ? Fasting reference interval For someone without known diabetes, a glucose value between 100 and 125 mg/dL is consistent with prediabetes and should be confirmed with a follow-up test. BUN 42(H) 7 - 25 mg/dL [facility] Creatinine 1.28(H) 0.60 - 1.00 mg/dL [facility] eGFR 44(L) > OR = 60 mL/min/1.7 3m2 [facility] BUN/creat ratio 33(H) 6 - 22 (calc) [facility] Sodium 139 135 - 146 mmol/L [facility] Potassium, pl 5.6(H) 3.5 - 5.3 mmol/L [facility] Chloride 109 98 - 110 mmol/L [facility] CO2 23 20 - 32 mmol/L [facility] Calcium 9.5 8.6 - 10.4 mg/dL [facility] Phosphorus, sr 4.5(H) 2.1 - 4.3 mg/dL [facility] Albumin 4.3 3.6 - 5.1 g/dL [facility] Blood 11/01/2023 8:30 AM CDT 11/01/2023 8:31 AM CDT us Merna Bell MD LAB BLOOD ORDERABLES Final Re sult [facility] [address] [place] [address] documented in this encounter Visit Diagnoses Diagnosis Chronic kidney disease (CKD) stage G3b/A1, moderately decreased glomerular filtration rate (GFR) between 30-44 mL/min/1.73 square meter and albuminuria creatinine ratio less than 30 mg/g (HCC)- Primary Dyspnea on exertion Other dyspnea and respiratory abnormality documented in this encounter Orders Lab Orders Without Results Count Last Ordered D ate First Ordered Date N-TERMINAL PROBNP 1 10/30/2023 documented in this encounter Care Teams Oracle Distribution Consultant Relationship Specialty Start Date End Date Elpidio Serrato MD PCP - General Internal Medicine 06/09/18 documented as of this encounter
--- OUTSIDE RECORDS SUMMARY | 2024-04-29 14:07 | XMS_ITS | Encounter Summary ---
Author Organization [facility] Healthcare Address [address] [place] [address] Care Team Providers Care Cad Intern Name Role Phone Elpidio Serrato MD Primary Care Provider [phone] Reason for Visit * Auth/Cert (Routine) Specialty Diagnoses / Procedures Referred By Contac t Referred To Contact Diagnoses Abnormal cardiovascular stress test Abnormal stress echocardiogram Stable angina (HCC) Procedures n/a Referral ID Status Reason Start Date Expiration Date Visits Re quested Visits Authorized [id number] 1 1 Encounter Details Date Type Department Care Team (Latest Contact Info) Description 11/15/2023 2:56 PM CDT - 11/16/2023 3:18 PM CDT Hospital Encounter [facility] [address] [place] [id number] Gris Molina MD [address] [facility] [address] [place] [address] Kolby Robles MD [address] [facility] [address] [place] [id number] Abnormal stress echocardiogram (Primary Dx) Discharge Disposition: Discharge to home or self [...] on file 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 Gender Identity Female 05/13/2021 4:21 PM 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 Sexual Orientation Not on file documented as of this encounter Last Filed Vital Signs Vital Sign Reading Time Taken Comments Blood Pressure 127/60 11/16/2023 12:04 PM CDT Pulse 88 11/16/2023 12:04 PM CDT Temperature 36.7 ??C (98.1 ??F) 11/16/2023 1 2:04 PM CDT Respiratory Rate 20 11/16/2023 12:0 4 PM CDT Oxygen Saturation 98% 11/16/2023 12: 04 PM CDT Inhaled Oxygen Concentration - - Weight 90.2 kg (198 lb 14.4 oz) 11/16/2023 4:20 AM CDT Height 149.9 cm (4' 11 ) 11/15/2023 2:56 PM CDT Body Mass Index 40.17 11/15/2023 2:56 PM CDT documented in this encounter Discharge Summaries * Kaushik Cuadra MD - 11/16/2023 12:37 PM CDT Inpatient Discharge Summary BRIEF OVERVIEW Admitting Provider: Kolby Robles MD Discharge Provider: Kolby Robles MD Primary Care Physician at Discharge: Elpidio Serrato MD [phone] Admission Date: 11/15/2023 Discharge Date: 11/16/2023 Admission Location: [facility] Problems/Diagnoses: Principal Problem: Abnormal stress echocardiogram Active Problems: Chronic kidney disease (CKD) stage G3b/A1, moderately decreased glomerular filtration rate (GFR) between 30-44 mL/min/1.73 square meter and albuminuria creatinine ratio less than 30 mg/g (HCC) Congestive heart failure (CMS/HCC) (HCC) Type 2 diabetes mellitus with hyperlipidemia (HCC) Hyperlipidemia Hypertension Hypothyroidism Obesity Hyperphosphatemia Stable angina (HCC) Resolved Problems: No resolved hospital problems. DETAILS OF HOSPITAL STAY Presenting Problem/History of Present Illness: This is a 73 yo F with PMHx of HTN, HLD, DM, CKD who has experienced worsening shortness of breath and dyspnea on exertion for approximately one month. This prompted a referral to cardiology, who recommended a DSE. During DSE yesterday, the patient was observed to have inferior wall akinesis at rest and dobutamine stress induced additional ischemic changes along the anterolateral wall. There was concern for unstable angina, and the patient was directly admitted for obs and further workup. Hospital Course: This is a 73 yo F with PMHx of HTN, HLD, DM, CKD who has experienced worsening shortness of breath and dyspnea on exertion for approximately one month. This prompted a referral to cardiology, who recommended a DSE. During DSE yesterday, the patient was observed to have inferior wall akinesis at rest and dobutamine stress induced additional ischemic changes along the anterolateral wall. The patient experienced a sense of fullness in her throat during this episode that was immediately relieved with sublingual nitroglycerin. She was directly admitted to our service to evaluate for urgent vs elective PCI in the setting of possible ACS. On presentation to this hospital, her troponins were normal and there were no EKG changes suggestive of ACS. She was mildly volume overloaded and received increased lasix diuresis for one day. She reported feeling less short of breath when lying flat this morning. 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 This is a 73 yo F with PMHx of HTN, HLD, DM, CKD who has experienced worsening shortness of breath and dyspnea on exertion for approximately one month. This prompted a referral to cardiology, who recommended a DSE. During DSE yesterday, the patient was observed to have inferior wall akinesis at rest and dobutamine stress induced additional ischemic changes along the anterolateral wall. The patient experienced a sense of fullness in her throat during this episode that was immediately relieved with sublingual nitroglycerin. She was directly admitted to our service to evaluate for urgent vs elective PCI in the setting of possible ACS. On presentation to this hospital, her troponins were normal and there were no EKG changes suggestive of ACS. She was mildly volume overloaded and received increased lasix diuresis for one day. She reported feeling less short of breath when lying flat this morning. 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 Active Issues Requiring Follow-up: - Stable angina: should follow up with cardiology - Coronary artery disease: should follow up with cardiology - Diabetes: should follow up with endocrine, primary care Test Results Pending at Discharge: None Operative Procedures Performed: None Other Procedures: None Pertinent Test Results: Troponin - 22 --> 25 --> 20 Discharge Details Physical Exam at Discharge: Discharge Condition: fair Pulse: 88 Resp: 20 BP: 127/60 Temp: 36.7 ??C (98.1 ??F) Weight: 90.2 kg (198 lb 14.4 oz) Pertinent Exam Findings at Discharge: Euvolemic, minimal pitting edema, lungs CTAB, minimal JVP. Observed sitting up on chair, speaking comfortably. Discharge Disposition: Code Status at Discharge: Full code Discharge Instructions: Thank you for letting us take care of you! We were observing you to make certain that your dobutamine stress echo had not caused damage to your heart. After watching your cardiac enzymes, which show heart damage, we are confident that your coronary artery disease is stable and is not causing active heart damage at this time. That being said, it is important to follow up with your construction project mgr to obtain a diagnostic heart cath in the near future. When you are discharged, please: Continue taking all medications as previously prescribed Call your construction project mgr on Saturday and schedule either an appointment or date for an elective heart cath Follow up with your rehabilitation counsellor on diabetes management If you gain 3 lbs in one day or 5 pounds in a week, please take an extra dose of lasix (20 mg) and call your construction project mgr for more instructions. If you have any questions or concerns, we are here for you! Just give us a call. Kaushik Cuadra MD PhD PGY-1, Internal Medicine Discharge Medications: Current Medications TAKE these medications acetaminophen 325 mg tablet Take 2 tablets (650 mg total) by mouth every 6 (six) hours as needed for pain Commonly known as: TYLENOL aspirin 81 mg enteric coated tablet Take 1 tablet (81 mg total) by mouth daily before breakfast For: primary prevention of heart attack atorvastatin 40 mg tablet Take 1 tablet (40 mg total) by mouth daily Commonly known as: LIPITOR BASAGLAR 100 unit/mL (3 mL) pen for injection Inject 50 Units under the skin daily before breakfast For: diabetes Generic drug: insulin glargine blood glucose diagnostic strip Testing once daily Commonly known as: glucose blood brimonidine-timoloL 0.2-0.5 % ophthalmic solution Administer 1 drop into the left eye 2 (two) times a day For: wide-angle glaucoma Commonly known as: Combigan celecoxib 200 mg capsule TAKE 1 CAPSULE DAILY Commonly known as: CeleBREX empagliflozin 10 mg tablet Take 1 tablet (10 mg total) by mouth daily Commonly known as: Jardiance ergocalciferol 50,000 unit capsule TAKE 1 CAPSULE BY MOUTH ONCE WEEKLY Commonly known as: VITAMIN D furosemide 20 mg tablet Take 1 tablet (20 mg total) by mouth daily Commonly known as: LASIX insulin aspart 100 unit/mL (3 mL) pen for injection Inject 12 Units under the skin 3 (three) times a day Commonly known as: NovoLOG insulin lispro 100 unit/mL vial for injection Inject 8-12 Units under the skin daily with lunch For: type 2 diabetes mellitus Commonly known as: HumaLOG, ADMELOG latanoprost 0.005 % ophthalmic solution INSTILL 1 DROP INTO BOTH EYES NIGHTLY Commonly known as: XALATAN levothyroxine 88 mcg tablet TAKE 1 TABLET BY MOUTH EVERY DAY Commonly known as: SYNTHROID metFORMIN 500 mg tablet Take 1 tablet (500 mg total) by mouth daily Commonly known as: GLUCOPHAGE pen needle, diabetic 32 gauge x 5/32 needle Use 4X daily Commonly known as: BD Ultra-Fine Hailee Pen Needle semaglutide 2 mg/dose (8 mg/3 mL) pen injector injection Inject 2 mg under the skin once a week For: type 2 diabetes mellitus Commonly known as: OZEMPIC Outpatient Follow-Up: Future Appointments Date Time Provider Department Center 11/19/2023 11:30 AM Lia Mariano NP [facility] 13B [facility] 01/20/2024 8:50 AM [facility] GENERAL TESTING OP TEST [facility]6 OP 01/20/2024 9:00 AM [facility] GENERAL TESTING OP TEST [facility]6 OP 01/20/2024 9:30 AM Makayla Ramos MD [facility] 6 OP 02/14/2024 11:30 AM Fabi Collier NP CAR CAM 8B Cardiology 05/04/2024 9:20 AM Merna Bell MD [facility] CAM 13B [facility] EML Kaushik Cuadra MD PhD PGY-1, Internal Medicine Cosigned by Kolby Robles MD at 11/16/2023 1:58 PM CDT documented in this encounter Discharge Instructions * Discharge Instructions* Kaushik Cuadra MD - 11/16/2023 12:56 PM CDT Thank you for letting us take care of you! We were observing you to make certain that your dobutamine stress echo had not caused damage to your heart. After watching your cardiac enzymes, which show heart damage, we are confident that your coronary artery disease is stable and is not causing active heart damage at this time. That being said, it is important to follow up with your construction project mgr to obtain a diagnostic heart cath in the near future. When you are discharged, please: Continue taking all medications as previously prescribed Call your construction project mgr on Saturday and schedule either an appointment or date for an elective heart cath Follow up with your rehabilitation counsellor on diabetes management If you gain 3 lbs in one day or 5 pounds in a week, please take an extra dose of lasix (20 mg) and call your construction project mgr for more instructions. If you have any questions or concerns, we are here for you! Just give us a call. Kaushik Cuadra MD PhD PGY-1, Internal Medicine documented in this encounter Medications at Time [...] Refills Last Filled Start Date End Date calcium carbonate (TUMS) 500 mg (200 mg elemental calcium) chewable tablet Take 1 tablet/chew tab (500 mg total) by mouth daily 90 tablet/chew tab 3 11/17/2023 11/16/2024 documented in this encounter Discharge Disposition Disposition Code Departure Means Destination Comment s Discharge to home or self care documented in this encounter H&P Notes * Kaushik Cuadra MD - 11/15/2023 3:36 PM CDT History and Physical Cardiology FIRM Service Name: Isabelle Lutz : 1950 Today's Date: November 15, 2023 Age: 73 y.o. female Admit Date: 11/15/2023 Bed: [id number] LOS: 0 days Subjective Isabelle Lutz is a 73 y.o. female with chief complaint of shortness of breath. Patient relates that she has been experiencing significant SOB and ROSE that has worsened over last 2-3 months. This prompted her to seek out cardiovascular care. She underwent a DSE earlier today during which she relates that she has had significant lower jaw tightness, consistent with prior sx at rest and with exertion, that was improved with administration of nitroglycerin. DSE identified significant wall motion abnormalities c/f multivessel disease, but no discernable EKG changes. She was directly admitted for ischemic eval. HPI This is a 73 yo F with PMHx of HTN, HLD, CKD, IDDM who presents with subacute shortness of breath with worsening dyspnea on exertion. Patient notes she has been becoming more short of breath over last 2-3 months. Notes that she also has associated lower jaw tightness that she describes as feeling as if there is a dental cavity needing addressed. Denies chest pain ever, palpitations, pedal edema, claudication, or dizziness. Deniessmoking ever or drinking alcohol. Per cardiology notes, she was referred for DSE after being evaluated with endocrine and nephrology for worsening CKD and concerning symptoms. DSE earlier today identified significant wall motion abnormalities c/f multivessel disease, but no discernable EKG changes. She was directly admitted for ischemic eval. Review of Systems All other systems were reviewed and are negative except for that which is listed in the History of Present Illness. Past Medical History Past Medical History: Diagnosis Date Cataract CHF [...] CATARACT EXTRACTION Right 06/14/2022 CE/IOL + goniotomy [place] APPENDECTOMY unkown dates per pt [place] DELIVERY ONLY Section - in 1972 and 1975 (Added by TW Conv) [place] TENDON SHEATH INCISION Hand Incision Tendon Sheath Of A Finger - right hand, III finger, 10 (Added by TW Conv) Current Facility-Administered Medications Medication Dose Route Frequency Provider Last Rate Last Admin acetaminophen (TYLENOL) tablet 650 mg 650 mg oral Q6H PRN Kaushik Cuadra MD [START ON 11/16/2023] aspirin enteric coated tablet 81 mg 81 mg oral Before breakfast Kaushik Cuadra MD atorvastatin (LIPITOR) tablet 40 mg 40 mg oral Daily Kaushik Cuadra MD 40 mg at 11/15/23 1654 brimonidine (ALPHAGAN) 0.2 % ophthalmic solution 1 drop 1 drop left eye BID Kaushik Cuadra MD And timolol (TIMOPTIC) 0.5 % ophthalmic solution 1 drop 1 drop each eye BID Kaushik Cuadra MD calcium carbonate (TUMS) chewable tablet 500 mg 200 mg of elemental calcium oral Daily Kaushik Cuadra MD 500 mg at 11/15/231652 Carrier Fluids for Secondary Infusion - 0.9% Sodium Chloride 30 mL intravenous PRN Kaushik Cuadra MD sodium chloride 0.9% flush 0.5-20 mL 0.5-20 mL intra-catheter Q8H [facility] Kaushik Cuadra MD 10 mLat 11/15/231653 And sodium chloride 0.9% flush 0.5-20 mL 0.5-20 mL intra-catheter PRN Kaushik Cuadra MD And Carrier Fluids for Secondary Infusion - 0.9% Sodium Chloride 30 mL intravenous PRN Kaushik Cuadra MD [Held by Provider] celecoxib (CeleBREX) capsule 200 mg 200 mg oral Daily Kaushik Cuadra MD dextrose gel in packet 15 g 15 g oral Q15 Min PRN Kaushik Cuadra MD Or dextrose (D10W) 10% bolus 250 mL 250 mL intravenous Q15 Min PRN Kaushik Cuadra MD empagliflozin (JARDIANCE) tablet 10 mg 10 mg oral Daily Kaushik Cuadra MD 10 mg at 11/15/231653 furosemide (LASIX) tablet 20 mg 20 mg oral BID DIURETIC Kaushik Cuadra MD 20 mg at 11/15/231652 glucagon injection 1 mg 1 mg intramuscular Q30 Min PRN Kaushik Cuadra MD heparin 5,000 unit/mL injection 5,000 Units 5,000 Units subcutaneous Q8H [facility] Kaushik Cuadra MD [START ON 11/16/2023] insulin glargine (LANTUS, SEMGLEE) 100 unit/mL injection 30 Units 30 Units subcutaneous QAM Kaushik Cuadra MD insulin lispro (HumaLOG, ADMELOG) 100 unit/mL injection 6 Units 6 Units subcutaneous TID with mealsKaushik sanders MD latanoprost (XALATAN) 0.005 % ophthalmic solution 1 drop 1 drop each eye Nightly Kaushik Cuadra MD levothyroxine (SYNTHROID) tablet 88 mcg 88 mcg oral Daily Kaushik Cuadra MD [Held by Provider] metFORMIN (GLUCOPHAGE) tablet 500 mg 500 mg oral Daily Kaushik Cuadra MD [Held by Provider] semaglutide (OZEMPIC) injection 2 mg 2 mg subcutaneous Weekly Kaushik Cuadra MD sodium chloride 0.9% flush 0.5-20 mL 0.5-20 mL intra-catheter Q8H [facility] Kaushik Cuadra MD sodium chloride 0.9% flush 0.5-20 mL 0.5-20 mL intra-catheter PRN Kaushik Cuadra MD Facility-Administered Medications Ordered in Other Encounters Medication Dose Route Frequency Provider Last Rate Last Admin atropine injection 0.4 mg 0.4 mg intravenous Once Vandana Isaacs MD DOBUTamine in dextrose 5% (DOBUTREX) 100 mg/50 mL (2,000 mcg/mL) infusion (premix) 10-50 mcg/kg/minintravenous Titrated Vandana Isaacs MD 82.1 mL/hr at 11/15/23 1300 30 mcg/kg/min at 11/15/23 1300 esmoloL (BREVIBLOC) injection 0-200 mg 0-200 mg intravenous Titrated Vandana Isaacs MD 50 mg at 11/15/23 1301 Allergies Allergen Reactions Pseudoephedrine Palpitations Valacyclovir Other (See comments) put me in renal failure Social and Family History Social History Tobacco Use Smoking status: Never Smokeless tobacco: Never Substance and Sexual Activity Drug use: Never Sexual activity: Not on file Alcohol Use: Not At Risk (08/03/2022) AUDIT-C Frequency of Alcohol Consumption: Never Average [...] by TW Conv) Anesthesia problems Neg Hx Objective Vitals Most Recent Vitals: T 36.5 ??C (97.7 ??F), HR 88, BP 108/59, RR 17, SpO2 99 %. 24hr Min/Max: Temp Min: 36.5 ??C (97.7 ??F) Max: 36.5 ??C (97.7 ??F) Pulse Min: 76 Max: 90 BP Min: 108/59 Max: 122/58 Resp Min: 17 Max: 17 SpO2 Min: 99 % Max: 99 % No intake or output data in the 24 hours ending 11/15/23 1747 Physical Exam Vitals reviewed. Constitutional: General: She is not in acute distress. Appearance: Normal appearance. She is obese. She is not ill-appearing. HENT: Mouth/Throat: Mouth: Mucous membranes are moist. Eyes: Extraocular Movements: Extraocular movements intact. Conjunctiva/sclera: Conjunctivae normal. Pupils: Pupils are equal, round, and reactive to light. Cardiovascular: Rate and Rhythm: Normal rate and regular rhythm. Pulses: Normal pulses. Heart sounds: Normal heart sounds. No murmur heard. No gallop. Pulmonary: Effort: Pulmonary effort is normal. No respiratory distress. Breath sounds: Normal breath sounds. No wheezing. Abdominal: General: Abdomen is flat. Palpations: Abdomen is soft. Musculoskeletal: Right lower leg: Edema (1+ pitting) present. Left lower leg: Edema (1+ pitting) present. Skin: General: Skin is warm and dry. Capillary Refill: Capillary refill takes less than 2 seconds. Neurological: General: No focal deficit present. Mental Status: She is alert and oriented to person, place, and time. Psychiatric: Mood and Affect: Mood normal. Behavior: Behavior normal. Lines, Drains, Airways Peripheral IV 11/15/23 22 G Anterior;Right Forearm (Active) Labs/Diagnostic Review Na - Cl - BUN - K - CO2 - Cr - Mg -, G AST - ALT - Alk Phos - Ca - TP - Alb - Total Bili: - Direct Bili: - \ Hgb - / WBC - -------- Plt - / MCV - \ INR - (Labs above are the most recent result obtained in the last ~24 hours. For additional labs/trends, see Epic.) Cardiac Labs (Trop-I, Pro-BNP) Lab Results Component Value Date NPROBNP 2,010 (H) 10/29/2023 I have reviewed the laboratory results. Imaging Review Stress Echo Pharmacologic W Doppler/CF Result Date: 11/15/2023 Ejection Fraction: 45-50% LV Global Function: Mild [...] well visualized. Doppler/CF Comments: No /No AR; NoMS/ mild MR; No TR; No [place]. Diastolic Function: Grade I (impaired relaxation) with nl est filling pre ssures.Unable to estimate PASP d/t inadequate TR jet. Baseline HR: 77 Baseline BP: 115/57 Conduction Defects: RBBB + LAFB Resting ECG Comments: Oriana Jensen Medications: Lasix, Aspirin, Lipitor, evothyroxine, Metformin, Insulin Meds held: none POST DOBUTAMINE STUDY: Wall Motion Scoring (1=Normal 2=Hypo 3=Akinetic 4=Dyskin./Aneurysm 0=Not visualized) Parasternal [place]:MAS=1 BAS=1 MIL=3 ROBERT=3 Parasternal Short [place]:MAS=1 MIS=1 OK=1 MIL=3MAL=1 MA=1 Apical 4 Chambers:=1 MIS=1 BIS=1 BAL=1 MAL=1 AL=1 AC=2 Apical 2 Chambers:AI=1 OK=1 BI=3 BA=1 MA=1 AA=1 AC=2 Intrav enous dobutamine was infused to a maximal dose 30 micro-g/Kg/min. Atropine: 0 mg. Other Med: Peak HR: 131 Peak BP: 110/46 Post-Exercise Comments: Marked increase in the LV and RV contractility, no NEW segmental wall motion abnormalities at peak stress; however in recovery (2 to 6min) pt with hypokin esis of anterior wall and inferior wall and marked hypo/akinesis of the inferolaterall with associated throat fullness. Basal inferior wall remains akinetic c/w infarction. Test terminated: Target heart rate achieved Stress ECG Comments: ECG changes doesn't meet criteria for ischemia, rare PVC's --- CONTRAST ENHANCEMENT WAS EMPLOYED after initial imaging [...] at rest. Above d/w Dr. Tammy Alfaro. I have independently reviewed and interpreted the preceding echocardiogram and DSE; I agree with the interpretation.. Assessment/Plan Isabelle Lutz is a 73 y.o. female with HTN, CKD IIIB, IDDM who presents with SOB and lower jaw pain concerning for anginal equivalency. DSE was highly suggestive of underlying ischemia and potentially ischemia at rest. LHC is indicated for further workup, but patient is mildly volume overloaded on exam today and needs diuresis prior to procedure. 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 Congestive heart failure (CMS/HCC) ([facility]) Assessment & Plan - Jardiance relative contraindication given advanced CKD - BP well controlled on current tx - Lasix for diuresis - GDMT uptitration post PCI Chronic kidney disease (CKD) stage G3b/A1, moderately decreased glomerular filtration rate (GFR) between 30-44 mL/min/1.73 square meter and albuminuria creatinine ratio less than 30 mg/g (HCC) Assessment & Plan - Tums for phosphate binding - Monitor fluid balance - Control BG - HITESH tx to be considered Hyperphosphatemia Assessment & Plan Indicated for phosphate binders - Tums Hypothyroidism Assessment & Plan Chronic and stable - Levothyroxine Hypertension Assessment & Plan Self-reported, not on anti-hypertensive therapy - Can consider as part of GDMT if indicated Hyperlipidemia Assessment & Plan - Lipitor indicated, continue Type 2 diabetes mellitus with hyperlipidemia (HCC) Assessment & Plan - Lispro TID meals - SSI - Lantus - Atorvastatin - Consider HITESH when cardiorenal picture is more clear - Holding metformin and GLP1 inpatient - Jardiance Code status : Full Code Diet : Adult Diet Regular; 2000mL = Diet 1400/Nursing 600 Kaushik Cuadra MD PhD PGY-1, Internal Medicine Cosigned by Kolby Robles MD at 11/16/2023 2:07 PM CDT Associated attestation - Kolby Robles MD - 11/16/2023 2:07 PM CDT I have seen and examined the patient on 11/16/23. I agree with the findings and plan of care as documented in the resident's/fellow's note.. documented in this encounter Nursing Notes * Nura Lai RN - 11/16/2023 2:52 PM CDT Patient discharged home, assisted to volunteer patient representative services by RN. Patient given discharge instructions, medication teaching, and follow up information. Patient indicated understanding and had no questions at this time. Vital signs stable, IV and telemetry removed at discharge. documented in this encounter Miscellaneous Notes * Initial Assessments - Nathan Kinsey RN - 11/16/2023 1:25 PM CDT CM Initial Assessment Interview Note Information Obtained From: Patient (11/16/231321) Admission Source: 2 Impression: Isabelle Lutz is a 73 y.o. female with HTN, CKD IIIB, IDDM who presents with SOB and lower jaw pain concerning for anginal equivalency. DSE was highly suggestive of underlying ischemia and potentially ischemia at rest. Plan Includes: Evaluate and treat. Plan for a safe discharge. Primary Source of Transportation: Does the patient need discharge transport arranged?: No (11/16/231321) Health Insurance Coverage: Medicare A/B, BCBS Prescription Coverage: yes Pharmacy: [facility] - LYNNE Clark - [facility] AT Portal to Registered [facility] [place] [address] [facility]/pharmacy [address] [place] [address] [phone] [address] Primary Care Provider: Elpidio Serrato MD Prior to Admission: Functional Status: Independent with ADLs Primary Caregiver: Self Support System: Children Home Care Services: No Outpatient Services: No Durable Medical Equipment: None Living Arrangements: Children Type of Residence: Private residence Steps in home?: Yes, Outside of home Number of steps inside: 2 steps Number of steps outside: 1 steps (11/15/23 1500) Potential discharge needs include: Home Health: None (11/16/231321) OP Services: No Dialysis: No Behavioral Health Services: No Anticipated Level of Care: Anticipated discharge level of care: Private residence Pt/Family agrees with Anticipated Level of Care: Yes (11/16/231321) Patient expects to be Discharged to: Private residence, (11/16/231321) Additional Information: Lives with son. Has personal car and still drives. Patient's Identified Problem/Goal Problem: Ensure acute medical [...] Collaboration with Patient, Provider, Direct Care Nurse, Brood Station Manager, and other members of theHealth Care Team to assure needed interventions completed. 2. Return patient to optimal level of self-care post discharge. 3. Conventions Reservationist will follow for Discharge Planning - interventions as needed 4. Anticipated level of care at discharge 5. Planned Discharge Disposition Nathan Kinsey RN * Hospital Course - Kaushik Cuadra MD - 11/16/2023 12:53 PM CDT This is a 73 yo F with PMHx of HTN, HLD, DM, CKD who has experienced worsening shortness of breath and dyspnea on exertion for approximately one month. This prompted a referral to cardiology, who recommended a DSE. During DSE yesterday, the patient was observed to have inferior wall akinesis at rest and dobutamine stress induced additional ischemic changes along the anterolateral wall. The patient experienced a sense of fullness in her throat during this episode that was immediately relieved with sublingual nitroglycerin. She was directly admitted to our service to evaluate for urgent vs elective PCI in the setting of possible ACS. On presentation to this hospital, her troponins were normal and there were no EKG changes suggestive of ACS. She was mildly volume overloaded and received increased lasix diuresis for one day. She reported feeling less short of breath when lying flat this morning. 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 * Plan of Care - Nura Lai RN - 11/16/2023 11:55 AM CDT Problem: Discharge Planning Goal: Understanding discharge needs will improve Outcome: Progressing Problem: Safety Goal: Free from injury or harm Outcome: Progressing Goal: Ability to maintain safety and efficiency with swallowing without signs of aspiration will improve Outcome: Progressing Goals: Clinical Goals for the Shift: Patient will remain hemodynamically stable Half-Way Patient Centered Goal for Treatment: pt will be discharged home Summary: Patient participating in care plan goals. Patient verbalized education and is progressing towards goals. * Plan of Care - Camryn Evans - 11/15/2023 9:57 PM CDT Problem: Discharge Planning Goal: Understanding discharge needs will improve Outcome: Progressing Problem: Safety Goal: Free from injury or harm Outcome: Progressing Goal: Ability to maintain safety and efficiency with swallowing without signs of aspiration will improve Outcome: Progressing Goals: Clinical Goals for the Shift: patient will remain hemodynamically stable Half-Way Patient Centered Goal for Treatment: pt will be discharged home Summary: Patient participating in care plan goals. Patient verbalized education and is progressing towards goals. * Plan of Care - Leeanne Pacheco RN - 11/15/2023 6:49 PM CDT Problem: Discharge Planning Goal: Understanding discharge needs will improve Outcome: Progressing Problem: Safety Goal: Free from injury or harm Outcome: Progressing Goal: Ability to maintain safety and efficiency with swallowing without signs of aspiration will improve Outcome: Progressing Goals: Summary: Patient participating in care plan goals. Patient verbalized education and is progressing towards goals. * Assessment & Plan Note - Kaushik Cuadra MD - 11/15/2023 4:24 PM CDT Associated Problem(s): Congestive heart failure (CMS/HCC) (HCC) - Jardiance relative contraindication given advanced CKD - BP well controlled on current tx - Lasix for diuresis - GDMT uptitration post PCI * Assessment & Plan Note - Kaushik Cuadra MD - 11/15/2023 4:13 PM CDT Associated Problem(s): Hyperlipidemia - Lipitor indicated, continue * Assessment & Plan Note - Kaushik Cuadra MD - 11/15/2023 4:13 PM CDT Associated Problem(s): DM2 (diabetes mellitus, type 2) ([facility]) - Lispro TID meals - SSI - Lantus - Atorvastatin - Consider HITESH when cardiorenal picture is more clear - Holding metformin and GLP1 inpatient - Jardiance * Assessment & Plan Note - Kaushik Cuadra MD - 11/15/2023 4:11 PM CDT Associated Problem(s): Hypertension Self-reported, not on anti-hypertensive therapy - Can consider as part of GDMT if indicated * Assessment & Plan Note - Kaushik Cuadra MD - 11/15/2023 4:02 PM CDT Associated Problem(s): Hypothyroidism Chronic and stable - Levothyroxine * Assessment & Plan Note - Kaushik Cuadra MD - 11/15/2023 4:02 PM CDT Associated Problem(s): Chronic kidney disease (CKD) stage G3b/A1, moderately decreased glomerular filtration rate (GFR) between 30-44 mL/min/1.73 square meter and albuminuria creatinine ratio less than 30 mg/g ([facility]) - Tums for phosphate binding - Monitor fluid balance - Control BG - HITESH tx to be considered * Assessment & Plan Note - Kaushik Cuadra MD - 11/15/2023 4:00 PM CDT Associated Problem(s): Hyperphosphatemia Indicated for phosphate binders - Tums documented in this encounter Plan of Treatment Scheduled Orders Name Type Priority Associated Diagnoses Orde r Schedule ECG 12 lead ECG Routine Once for 1 Oc currences starting 11/15/2023 until 11/15/2023 documented as of this encounter Procedures Procedure Name Priority Date/Time Associated Diagnosis Comments POCT GLUCOSE DEVICE Routine 11/16/2023 1 2:04 PM CDT POCT GLUCOSE DEVICE Routine 11/16/2023 7 :54 AM CDT TROPONIN I HIGH-SENSITIVITY STAT 11/16/2023 6:15 AM CDT TROPONIN I HIGH-SENSITIVITY Routine 11/15/2023 9:33 PM CDT POCT GLUCOSE DEVICE Routine 11/15/2023 7 :57 PM CDT B CHECK SAMPLE STAT 11/15/2023 6:58 PM CDT TROPONIN I HIGH-SENSITIVITY STAT 11/15/2023 6:02 PM CDT EGFR Routine 11/15/2023 5:12 PM CDT DIFFERENTIAL AUTO Routine 11/15/2023 5:1 2 PM CDT PRO B-TYPE NATRIURETIC PEPTIDE Routine 11/15/2023 5:12 PM CDT IRON PROFILE W/ IBC Routine 11/15/2023 5 :12 PM CDT CBC WITH AUTO DIFFERENTIAL Routine 11/15/2023 5:12 PM CDT APTT Routine 11/15/2023 5:12 PM CDT PROTIME-INR Routine 11/15/2023 5:12 PM CDT TYPE AND SCREEN Timed 11/15/2023 5:12 PM CDT MAGNESIUM Routine 11/15/2023 5:12 PM CDT COMPREHENSIVE METABOLIC PANEL Routine 11/15/2023 5:12 PM CDT POCT GLUCOSE DEVICE Routine 11/15/2023 4 :14 PM CDT documented in this encounter Results * POCT glucose (11/16/2023 12:04 PM CDT) Glucose, POC 124 70 - 199 mg/dL Blood 11/16/2023 12:0 4 PM CDT 11/16/2023 12:04 PM CDT Kolby Robles MD LAB POCT ORDERABLES - DEVICE Fin al Result Performing Organization Address [facility]/ZIP Co de Phone Number [facility] [place] [address] * POCT glucose (11/16/2023 7:54 AM CDT) Glucose, POC 84 70 - 199 mg/dL Blood 11/16/2023 7:54 AM CDT 11/16/2023 7:54 AM CDT Kolby Robles MD LAB POCT ORDERABLES - DEVICE Fin al Result JORGE [facility] [place] [address] * (ABNORMAL) Troponin I high-sensitivity (11/16/2023 6:15 AM CDT) Trop I hs 20(H) <=17 ng/L Comment: Interpretive Data For further hscTnI resources including the diagnostic algorithm and an aid in interpretation, copy and paste this link: [email or web address]/show/[email or web address] Current Interpretive Data last revised 2019. Blood 11/16/2023 6:15 AM CDT 11/16/2023 6:49 AM CDT us Kolby Robles MD LAB BLOOD ORDERABLES Final Resul t Performing Organization Address [facility] Co de Phone Number [facility] [place] [address] * (ABNORMAL) Troponin I high-sensitivity (11/15/2023 9:33 PM CDT) Trop I hs 25(H) <=17 ng/L Comment: Interpretive Data For further hscTnI resources including the diagnostic algorithm and an aid in interpretation, copy and paste this link: [email or web address]/show/[email or web address] Current Interpretive Data last revised 2019. Blood 11/15/2023 9:33 PM CDT 11/15/2023 10:35 PM CDT us Kolby Robles MD LAB BLOOD ORDERABLES Final Resul t JORGE [facility] [place] [address] * POCT glucose (11/15/2023 7:57 PM CDT) Glucose, POC 111 70 - 199 mg/dL Blood 11/15/2023 7:57 PM CDT 11/15/2023 7:57 PM CDT Kolby Robles MD LAB POCT ORDERABLES - DEVICE Fin al Result Performing Organization Address City/[facility] Co de Phone Number [facility] [place] [address] * Check Sample (11/15/2023 6:58 PM CDT) ABO Rh A Positive [facility] HC[facility] OTHER 11/15/2023 6:58 PM CDT 11/15/2023 7:20 PM CDT Result [facility] Kolby Robles MD LAB BLOOD ORDERABLES Final Resul t Performing Organization Address [facility] Co de Phone Number [facility] [place] [address] [facility] * (ABNORMAL) Troponin I high-sensitivity (11/15/2023 6:02 PM CDT) Trop I hs 22(H) <=17 ng/L Comment: Interpretive Data For further [facility] resources including the diagnostic algorithm and an aid in interpretation, copy and paste this link: [email or web address].[email or web address]/show/[email or web address] Current Interpretive Data last revised 2019. Blood 11/15/2023 6:02 PM CDT 11/15/2023 6:57 PM CDT Kaushik Cuadra MD LAB BLOOD ORDERABLES Final Result Performing Organization Address [facility]/ZIP Co de Phone Number [facility] [place] [address] * (ABNORMAL) eGFR (11/15/2023 5:12 PM CDT) eGFR 56(L) >=60 mL/min/1. 73 [...] interpretive data was last reviewed 2021. Blood 11/15/2023 5:12 PM CDT 11/15/2023 6:01 PM CDT us Kolby Robles MD LAB BLOOD ORDERABLES Final Resul t Performing Organization Address City/State/[facility] Co de Phone Number [facility] [place] [address] * Differential, auto (11/15/2023 5:12 PM CDT) Pathologist [facility] Neutrophil abs 5.3 1.5 - 6.5 K/cumm Imm gran abs 0.0 0.0 - 0.1 K/cumm [facility] Lymphocyte abs 1.8 0.8 - 3.3 K/cumm [facility] Monocyte abs 0.6 0.2 - 0.8 K/cumm [facility] Eosinophil abs 0.1 0.0 - 0.5 K/cumm [facility] Basophil abs 0.0 0.0 - 0.1 K/cumm [facility] Neutrophil pct 67.7 % [facility] Comment: Interpretive Data Percent cell count reference ranges are not reported, since discordance with absolute values may lead to misinterpretation of CBC data. Current Interpretive Data was last revised on 2017. Imm gran pct 0.4 % JOREG [facility] Comment: Interpretive Data Percent cell count reference ranges are not reported, since discordance with absolute values may lead to misinterpretation of CBC data. Current Interpretive Data was last revised on 2017. Lymphocyte pct 23.1 % JORGE [facility] Comment: Interpretive Data Percent cell count reference ranges are not reported, since discordance with absolute values may lead to misinterpretation of CBC data. Current Interpretive Data was last revised on 2017. Monocyte pct 7.3 % [facility] Comment: Interpretive Data Percent cell count reference ranges are not reported, since discordance with absolute values may lead to misinterpretation of CBC data. Current Interpretive Data was last revised on 2017. Eosinophil pct 1.0 % [facility] Comment: Interpretive Data Percent cell count reference ranges are not reported, since discordance with absolute values may lead to misinterpretation of CBC data. Current Interpretive Data was last revised on 2017. Basophil pct 0.5 % [facility] Comment: Interpretive Data Percent cell count reference ranges are not reported, since discordance with absolute values may lead to misinterpretation of CBC data. Current Interpretive Data was last revised on 2017. Blood 11/15/2023 5:12 PM CDT 11/15/2023 6:02 PM CDT us Kolby Robles MD LAB BLOOD ORDERABLES Final Resul t [facility] [place] [facility] [place] [address] * aPTT (11/15/2023 5:12 PM CDT) aPTT 30 28 - 38 sec Comment: Interpretive Data Heparin therapeutic range: 66.0 - 100.0 seconds. Range based on correlation with therapeutic heparin activity range of 0.3 - 0.7 Units/mL. Current interpretive data was last revised on 2023. Blood 11/15/2023 5:12 PM CDT 11/15/2023 6:06 PM CDT us Kolby Robles MD LAB BLOOD ORDERABLES Final Resul t Performing Organization Address [facility] de Phone Number [facility] [place] [address] * Protime-INR (11/15/2023 5:12 PM CDT) PT 12.1 10.3 - 13.7 sec INR 1.06 0.90 - 1.20 [facility] Comment: Interpretive data Oral anticoagulant therapeutic ranges: Venous thromboembolism prophylaxis or treatment: 2.0-3.0 CARDIOLOGY Standard range: 2.0-3.0 High-intensity range: 2.5-3.5 Refer to indication-specific guidelines for appropriate target ranges for prosthetic heart valve replacement. Current interpretive data was last revised on 2019. Blood 11/15/2023 5:12 PM CDT 11/15/2023 6:06 PM CDT Result [facility] us Kolby Robles MD LAB BLOOD ORDERABLES Final Resul t Performing Organization Address [facility] [place] [address] * Iron profile w/ IBC (11/15/2023 5:12 PM CDT) Iron 69 35 - 145 mcg/dL TIBC 306 250 - 400 mcg/dL [facility] Transferrin saturation 23 20 - 50 % [facility] Blood 11/15/2023 5:12 PM CDT 11/15/2023 6:01 PM CDT us Kolby Robles MD LAB BLOOD ORDERABLES Final Resul t Performing Organization Address City/[facility] Co de Phone Number [facility] [place] [address] * Type and screen (11/15/2023 5:12 PM CDT) Pathologist [facility] ABO Rh A Positive Sergio, indirect Negative [facility] Blood 11/15/2023 5:12 PM CDT 11/15/2023 6:17 PM CDT Narrative [facility] - 11/15/2023 7:22 PM CDT Has the patient had Daratumumab or Isatuximab in the past 6 months?->Unknown us Kolby Robles MD LAB BLOOD BANK TEST ORDERABLES F inal Result Performing Organization Address City/[facility] Co de Phone Number [facility] [place] [address] * (ABNORMAL) CBC with auto differential (11/15/2023 5:12 PM CDT) [facility] WBC 7.8 3.8 - 9.9 K/cumm Hgb 11.5(L) 11.9 - 15.5 g/dL [facility] Hct 35.3(L) 35.6 - 45.5 % [facility] Plt 201 150 - 400 K/cumm [facility] MPV 11.2 9.1 - 12.3 fL [facility] RBC 3.93 3.90 - 5.20 M/cumm [facility] MCV 89.8 81.3 - 96.4 fL [facility] MCH 29.3 27.1 - 33.3 pg [facility] MCHC 32.6 32.3 - 35.7 g/dL [facility] RDW CV 12.3 11.1 - 14.9 % [facility] RDW SD 41.1 35.7 - 48.1 fL [facility] NRBC abs 0.00 0.00 - 0.01 K/cumm [facility] Blood 11/15/2023 5:12 PM CDT 11/15/2023 6:02 PM CDT us Kolby Robles MD LAB BLOOD ORDERABLES Final Resul t [facility] [place] [address] * (ABNORMAL) Pro B-type natriuretic peptide (11/15/2023 5:12 PM CDT) NT-proBNP 2,229(H) <=300 pg/mL Comment: Interpretive Comments: A. Dyspnea [...] Eur Heart J. 2006:27:330-337. 2. Malick ENGLISH, Karnia QUIROGA. J. AM Remi Cardiol: Cardiovasc Imag. 2009;2: 216- 225. Interpretive Data Last Revised Date: 2017. Blood 11/15/2023 5:12 PM CDT 11/15/2023 6:01 PM CDT Kolby Robles MD LAB BLOOD ORDERABLES Final Resul t Performing Organization Address City/[facility]/ZIP Co de Phone Number [facility] [place] [address] * Magnesium (11/15/2023 5:12 PM CDT) Pathologist [facility] Magnesium 1.9 1.4 - 2.5 mg/dL Blood 11/15/2023 5:12 PM CDT 11/15/2023 6:01 PM CDT Kolby Robles MD LAB BLOOD ORDERABLES Final Resul t Performing Organization Address [facility] Co de Phone Number [facility] [place] [address] * (ABNORMAL) Comprehensive metabolic panel (11/15/2023 5:12 PM CDT) Sodium 147(H) 135 - 145 mmol/L Potassium, pl 3.7 3.3 - 4.9 mmol/L [facility] Chloride 113(H) 97 - 110 mmol/L [facility] CO2 23 22 - 32 mmol/L [facility] Anion gap 11 2 - 15 mmol/L [facility] BUN 27(H) 6 - 25 mg/dL [facility] Creatinine 1.04 0.60 - 1.10 mg/dL [facility] Glucose 77 70 - 199 mg/dL [facility] Comment: Interpretive Data Fasting glucose [...] interpretive data was last revised 2022. Calcium 9.4 8.5 - 10.3 mg/dL [facility] Bilirubin, total 0.3 0.1 - 1.2 mg/dL [facility] Protein, pl 6.9 6.5 - 8.5 g/dL [facility] Albumin 4.3 3.5 - 5.0 g/dL [facility] Alk phos 89 40 - 130 Units/L [facility] ALT 20 7 - 45 Units/L [facility] AST 28 10 - 45 Units/L [facility] Blood 11/15/2023 5:12 PM CDT 11/15/2023 6:01 PM CDT us Kolby Robles MD LAB BLOOD ORDERABLES Final Resul t Performing Organization Address City/[facility]/ZIP Co de Phone Number [facility] [place] [address] * POCT glucose (11/15/2023 4:14 PM CDT) Glucose, POC 78 70 - 199 mg/dL Blood 11/15/2023 4:14 PM CDT 11/15/2023 4:14 PM CDT us Kolby Robles MD LAB POCT ORDERABLES - DEVICE Fin al Result Performing Organization Address [facility]/ZIP Co de Phone Number [facility] [place] [address] documented in this encounter Visit Diagnoses Diagnosis Abnormal stress echocardiogram- Primary Abnormal stress echocardiogram Type 2 diabetes mellitus with hyperlipidemia (HCC) Hyperlipidemia Other and unspecified hyperlipidemia Hypertension Unspecified essential hypertension Hypothyroidism Unspecified hypothyroidism Obesity Obesity, unspecified Chronic kidney disease (CKD) stage G3b/A1, moderately decreased glomerular filtration rate (GFR) between 30-44 mL/min/1.73 square meter and albuminuria creatinine ratio less than 30 mg/g (HCC) Congestive heart failure (CMS/HCC) (HCC) Congestive heart failure, unspecified Hyperphosphatemia Disorders of phosphorus metabolism Stable angina (HCC) Other and unspecified angina pectoris documented in this encounter Admitting Diagnoses Diagnosis Abnormal stress echocardiogram Stable angina (HCC) Other and unspecified angina pectoris documented in this encounter Administered Medications Inactive Administered Medications - up to 3 most recent administrations Medication Order MAR Action Action Date Dose Rate Site aspirin enteric coated tablet 81 mg 81 mg, oral, Daily before breakfast, First dose on Sat11/16/23 at 0730, Do not crush, chew, cut, dissolve, open or otherwise manipulate tablet/capsule., Indications: primary prevention of coronary heart diseaseIndications:primary prevention of coronary heart disease Given 11/16/2023 10:55 AM CDT 81 mg atorvastatin (LIPITOR) tablet 40 mg 40 mg, oral, Daily, First dose on Sat11/15/23 at 1700 Given 11/16/2023 10:55 AM CDT 40 mg Given 11/15/2023 4:54 PM CDT 40 mg brimonidine (ALPHAGAN) 0.2 % ophthalmic solution 1 drop 1 drop, left eye, 2 times daily, First dose on Sat11/15/23 at 2100, Indications: open angle glaucomaIndications:open angle glaucoma Given 11/16/2023 12:34 PM CDT 1 drop Given 11/15/2023 8:10 PM CDT 1 drop calcium carbonate (TUMS) chewable tablet 500 mg 500 mg (200 mg of elemental calcium), oral, Daily, First dose on Sat11/15/23 at 1700 Given 11/16/2023 10:55 AM CDT 500 mg Given 11/15/2023 4:53 PM CDT 500 mg Carrier Fluids for Secondary Infusion - 0.9% Sodium Chloride 30 mL, intravenous, As needed, For priming tubing and/or flushing, Starting on Sat11/15/23 at 1606, 0-250 ml/hr to flush line after IV infusions when no maintenance IV ordered. Infuse 30mL at the same rate as the secondary infusion. Run as primary IV, not intended for KVO. Carrier Fluids for Secondary Infusion - 0.9% Sodium Chloride 30 mL, intravenous, As needed, For priming tubing and/or flushing, Starting on Sat11/15/23 at 1606, 0-250 ml/hr to flush line after IV infusions when no maintenance IV ordered. Infuse 30mL at the same rate as the secondary infusion. Run as primary IV, not intended for KVO. dextrose (D10W) 10% bolus 250 mL 250 mL, intravenous, at 1,000 mL/hr, Administer over 15 Minutes, Every 15 min PRN, blood glucose less than 70 mg/dL and UNABLE to swallow/take PO glucose/juice., Starting on Sat11/15/23 at 1623, After treatment for hypoglycemia, recheck BG followed [...] glucose less than 70 mg/dL, Starting on Sat11/15/23 at 1623, If patient is alert and able to [...] episode of hypoglycemia., Indications: hypoglycemic disorderIndications:hypoglycemic disorder empagliflozin (JARDIANCE) tablet 10 mg 10 mg, oral, Daily, First dose on Sat11/15/23 at 1700, I /authorizing provider attest that the patient meets the approved [facility] Use Criteria: Yes, Approving Provider: Margaret, Indications: Chronic Kidney Disease, Heart Failure, heart failure associated with type 2 diabetes mellitus, type 2 diabetes mellitusIndications:Chronic Kidney Disease,Heart Failure,heart failure associated with type 2 diabetes mellitus,type 2 diabetes mellitus Given 11/16/2023 10:55 AM CDT 10 mg Given 11/15/2023 4:54 PM CDT 10 mg ergocalciferol (VITAMIN D) capsule 50,000 Units 50,000 Units, oral, Once, On Sat11/15/23 at 1700, For 1 dose, Do not crush, break, or open. Given 11/15/2023 4:54 PM CDT 50,000 Units furosemide (LASIX) tablet 20 mg 20 mg, oral, 2 times daily (for diuretics), First dose on Sat11/15/23 at 1700 Given 11/16/2023 10:55 AM CDT 20 mg Given 11/15/2023 4:53 PM CDT 20 mg glucagon injection 1 mg 1 mg, intramuscular, Every 30 min PRN, low blood sugar, blood glucose less than 70 mg/dL AND no IV access AND unable to take PO glucose/juice., Starting on Sat11/15/23 at 1623, After Glucagon is administered, position patient on [...] 1 mL SWFI. Use immediately following reconstitution. heparin 5,000 unit/mL injection 5,000 Units 5,000 Units, subcutaneous, Every 8 hours scheduled, First dose on Sat11/15/23 at 1645, Indications: Deep Vein Thrombosis PreventionIndications:Deep Vein Thrombosis Prevention Given 11/16/2023 6:36 AM CDT 5,000 Units Right Lower Abdomen Given 11/15/2023 9:29 PM CDT 5,000 Units L eft Lower Abdomen insulin glargine (LANTUS, SEMGLEE) 100 unit/mL injection 30 Units 30 Units, subcutaneous, Every morning, First dose on Sat11/16/23 at 0900, Do not mix with other insulins, Indications: diabetesIndications:diabetes Given 11/16/2023 10:54 AM CDT 30 Units Left Lower Abdomen insulin lispro (HumaLOG, ADMELOG) 100 unit/mL injection 6 Units 6 Units, subcutaneous, 3 times daily with meals, First dose on Sat11/15/23 at 1800 Given 11/16/2023 12:33 PM CDT 6 Units Left Lower Abdomen latanoprost (XALATAN) 0.005 % ophthalmic solution 1 drop 1 drop, each eye, Nightly, First dose on Sat11/15/23 at 2100 Given 11/15/2023 8:10 PM CDT 1 drop levothyroxine (SYNTHROID) tablet 88 mcg 88 mcg, oral, Daily, First dose on Sat11/15/23 at 1700, Administer on an empty stomach, preferably 30 minutes before breakfast. Take 4 hours apart from antacids, iron and calcium products. Separate from tube feeds, if applicable. Given 11/16/2023 10:55 AM CDT 88 mcg magnesium oxide (MAG-OX) tablet 400 mg 400 mg, oral, Daily, First dose on Sat11/15/23 at 2000, 1 tablet = Magnesium oxide 400 mg = 241.3 mg elemental magnesium, Indications: hypomagnesemiaIndications:hy pomagnesemia Given 11/16/2023 10:55 AM CDT 400 mg Given 11/15/2023 8:13 PM CDT 400 mg potassium chloride ER (KLOR-CON) extended release tablet 20 mEq 20 mEq, oral, Once, On Sat11/15/23 at 2000, For 1 dose, Tablets should not be crushed, chewed, dissolved, or otherwise manipulated. Capsules may be opened and sprinkled on a spoonful of applesauce or pudding, but the contents of the capsule should not be crushed or chewed. Given 11/15/2023 8:13 PM CDT 20 mEq potassium chloride ER (KLOR-CON) extended release tablet 20 mEq 20 mEq, oral, Daily, First dose (after last reorder) on Sat11/16/23 at 0900, Tablets should not be crushed, chewed, dissolved, or otherwise manipulated. Capsules may be opened and sprinkled on a spoonful of applesauce or pudding, but the contents of the capsule should not be crushed or chewed. Given 11/16/2023 10:5 4 AM CDT 20 mEq sodium chloride 0.9% flush 0.5-20 mL 0.5-20 mL, intra-catheter, Every 8 hours scheduled, First dose on Sat11/15/23 at 1645, Flush volume based on line type and size. sodium chloride 0.9% flush 0.5-20 mL 0.5-20 mL, intra-catheter, As needed, line care, Starting on Sat11/15/23 at 1606, Flush volume based on line type and size. Flush before and after each use. sodium chloride 0.9% flush 0.5-20 mL 0.5-20 mL, intra-catheter, Every 8 hours scheduled, First dose on Sat11/15/23 at 1645, Flush volume based on line type and size. Given 11/15/2023 4:54 PM CDT 10 mL sodium chloride 0.9% flush 0.5-20 mL 0.5-20 mL, intra-catheter, As needed, line care, Starting on Sat11/15/23 at 1606, Flush volume based on line type and size. Flush before and after each use. timolol (TIMOPTIC) 0.5 % ophthalmic solution 1 drop 1 drop, each eye, 2 times daily, First dose on Sat11/15/23 at 2100, Indications: open angle glaucomaIndications:open angle glaucoma Given 11/16/2023 12:34 PM CDT 1 drop Given 11/15/2023 8:10 PM CDT 1 drop documented in this encounter Discontinued Medications Medication Sig Discontinue Reason Start Date End Da te celecoxib (CeleBREX) 200 mg capsule TAKE 1 CAPSULE DAILY Stop Taking at Discharge 12/04/2022 11/16/2023 documented as of this encounter Active and Recently Administered Medications Times are shown in CDT. Scheduled Medication Order 11/14/2023 11/15/2023 11/16/2023 aspirin enteric coated tablet 81 mg 81 mg, oral, Daily before breakfast, First dose on Sat11/16/23 at 0730, Do not crush, chew, cut, dissolve, open or otherwise manipulate tablet/capsule., Indications: primary prevention of coronary heart disease 1055 (Given - Provid er: Nura Lai RN) atorvastatin (LIPITOR) tablet 40 mg 40 mg, oral, Daily, First dose on Sat11/15/23 at 1700 1654 (Given - Provider: Leenane Pacheco RN) 1055 (Given - Provider: Nura Lai, CAPRI) brimonidine (ALPHAGAN) 0.2 % ophthalmic solution 1 drop(Linked Group 1) 1 drop, left eye, 2 times daily, First dose on Sat11/15/23 at 2100, Indications: open angle glaucoma 2009 (Given - Provider: Camryn Evans) 1234 (Given - Provider: Nura Lai, CAPRI) calcium carbonate (TUMS) chewable tablet 500 mg 500 mg (200 mg of elemental calcium), oral, Daily, First dose on Sat11/15/23 at 1700 165 (Given - Provider: Leeanne Pacheco RN) 105 (Given - Provider: Nura Lai RN) celecoxib (CeleBREX) capsule 200 mg 200 mg, oral, Daily, First dose on Sat11/15/23 at 1700, On hold since Sat11/15/2023 at 1618 until manually unheld 1618 (Held by Provider - Provider: Kaushik Cuadra MD - Reason: Hold for Procedure)1700 (Dose Auto Held) 0900 (Hold - Provider: Nura Lai RN - Reason: See Provider Order)1919 (Unheld by Provider - Provider: Automatic Discharge Provider) empagliflozin (JARDIANCE) tablet 10 mg 10 mg, oral, Daily, First dose on Sat11/15/23 at 1700, I /authorizing provider attest that the patient meets the approved [facility] Use Criteria: Yes, Approving Provider: Margaret, Indications: Chronic Kidney Disease, Heart Failure, heart failure associated with type 2 diabetes mellitus, type 2 diabetes mellitus 1653 (Given - Provider: Leeanne Pacheco RN) 105 (Given - Provider: Nura Lai, CAPRI) ergocalciferol (VITAMIN D) capsule 50,000 Units (COMPLETED) 50,000 Units, oral, Once, On Sat11/15/23 at 1700, For 1 dose, Do not crush, break, or open. 1653 (Given - Provider: Leeanne Pacheco RN) furosemide (LASIX) tablet 20 mg 20 mg, oral, 2 times daily (for diuretics), First dose on Sat11/15/23 at 1700 1653 (Given - Provider: Leeanne Pacheco RN) 1055 (Given - Provider: Nura Lai, CAPRI) heparin 5,000 unit/mL injection 5,000 Units 5,000 Units, subcutaneous, Every 8 hours scheduled, First dose on Sat11/15/23 at 1645, Indications: Deep Vein Thrombosis Prevention 1646 (Not Given - Provider: Leeanne Pacheco RN - Reason: Other - Comment: to be given at 2200)2129 (Given - Provider: Camryn Evans) 0636 (Given - Provider: Camryn Evans)1400 (Due) insulin glargine (LANTUS, SEMGLEE) 100 unit/mL injection 30 Units 30 Units, subcutaneous, Every morning, First dose on Sat11/16/23 at 0900, Do not mix with other insulins, Indications: diabetes 1054 (Given - Provid er: Nura Lai RN) insulin lispro (HumaLOG, ADMELOG) 100 unit/mL injection 6 Units 6 Units, subcutaneous, 3 times daily with meals, First dose on Sat11/15/23 at 1800 1646 (Not Given - Provider: Leeanne Pacheco RN - Reason: Order parameters not met) 0800 (Not Given - Provider: Nura Lai RN - Reason: NPO)1233 (Given - Provider: Nura Lai RN) latanoprost (XALATAN) 0.005 % ophthalmic solution 1 drop 1 drop, each eye, Nightly, First dose on Sat11/15/23 at 2100 2009 (Given - Provider: Camryn Evans) levothyroxine (SYNTHROID) tablet 88 mcg 88 mcg, oral, Daily, First dose on Sat11/15/23 at 1700, Administer on an empty stomach, preferably 30 minutes before breakfast. Take 4 hours apart from antacids, iron and calcium products. Separate from tube feeds, if applicable. 1811 (Not Given - Provider: Leeanne Pacheco RN - Reason: Other - Comment: dose to be given tomorrow at 0900) 1055 (Given - Provider: Nura Lai RN) magnesium oxide (MAG-OX) tablet 400 mg 400 mg, oral, Daily, First dose on Sat11/15/23 at 2000, 1 tablet = Magnesium oxide 400 mg = 241.3 mg elemental magnesium, Indications: hypomagnesemia 2012 (Given - Provider: Camryn Evnas) 1055 (Given - Provider: Nura Lai, RN) metFORMIN (GLUCOPHAGE) tablet 500 mg 500 mg, oral, Daily, First dose on Sat11/15/23 at 1700, Take with food, On hold since Sat11/15/2023 at 1618 until manually unheld 161 (Held by Provider - Provider: Kaushik Cuadra MD - Reason: Hold for Procedure)1700 (Dose Auto Held) 0900 (Hold - Provider: Nura Lai, CAPRI - Reason: See Provider Order)191 (Unheld by Provider - Provider: Automatic Discharge Provider) potassium chloride ER (KLOR-CON) extended release tablet 20 mEq (COMPLETED) 20 mEq, oral, Once, On Sat11/15/23 at 2000, For 1 dose, Tablets should not be crushed, chewed, dissolved, or otherwise manipulated. Capsules may be opened and sprinkled on a spoonful of applesauce or pudding, but the contents of the capsule should not be crushed or chewed. 2012 (Given - Provider: Camryn Evans) potassium chloride ER (KLOR-CON) extended release tablet 20 mEq 20 mEq, oral, Daily, First dose (after last reorder) on Sat11/16/23 at 0900, Tablets should not be crushed, chewed, dissolved, or otherwise manipulated. Capsules may be opened and sprinkled on a spoonful of applesauce or pudding, but the contents of the capsule should not be crushed or chewed. 1054 (Given - Provid er: Nura Lai, CAPRI) semaglutide (OZEMPIC) injection 2 mg 2 mg, subcutaneous, Weekly, First dose on Sat11/15/23 at 1700, Indications: type 2 diabetes mellitus, On hold since Sat11/15/2023 at 1618 until manually unheld 1618 (Held by Provider - Provider: Kaushik Cuadra MD - Reason: Hold for Procedure)1700 (Dose Auto Held) 191 (Unheld by Provider - Provider: Automatic Discharge Provider) sodium chloride 0.9% flush 0.5-20 mL 0.5-20 mL, intra-catheter, Every 8 hours scheduled, First dose on Sat11/15/23 at 1645, Flush volume based on line type and size. 1700 (Not Given - Provider: Leeanne Pacheco RN - Reason: Order parameters not met - Comment: pt only has 1 iv - 2 flushes ordered)2125 (Not Given - Provider: Camryn Evans - Reason: Other - Comment: flushed during evening rounds) 0518 (Not Given - Provider: Camryn Evans - Reason: Other - Comment: flushed during evening rounds)1400 (Due) sodium chloride 0.9% flush 0.5-20 mL(Linked Group 2) 0.5-20 mL, intra-catheter, Every 8 hours scheduled, First dose on Sat11/15/23 at 1645, Flush volume based on line type and size. 1654 (Given - Provider: Leeanne Pacheco RN)5 (Not Given - Provider: Camryn Evans - Reason: Other - Comment: flushed during evening rounds) 0517 (Not Given - Provider: Camryn Evans - Reason: Other - Comment: flushed during evening rounds)1400 (Due) timolol (TIMOPTIC) 0.5 % ophthalmic solution 1 drop(Linked Group 1) 1 drop, each eye, 2 times daily, First dose on Sat11/15/23 at 2100, Indications: open angle glaucoma 2009 (Given - Provider: Camryn Evans) 1234 (Given - Provider: Nura Lai, CAPRI) PRN Medication Order 11/14/2023 11/15/2023 11/16/2023 acetaminophen (TYLENOL) tablet 650 mg 650 mg, oral, Every 6 hours PRN, 1st line for pain, Starting on Sat11/15/23 at 1607 Carrier Fluids for Secondary Infusion - 0.9% Sodium Chloride 30 mL, intravenous, As needed, For priming tubing and/or flushing, Starting on Sat11/15/23 at 1606, 0-250 ml/hr to flush line after IV infusions when no maintenance IV ordered. Infuse 30mL at the same rate as the secondary infusion. Run as primary IV, not intended for KVO. Carrier Fluids for Secondary Infusion - 0.9% Sodium Chloride(Linked Group 2) 30 mL, intravenous, As needed, For priming tubing and/or flushing, Starting on Sat11/15/23 at 1606, 0-250 ml/hr to flush line after IV infusions when no maintenance IV ordered. Infuse 30mL at the same rate as the secondary infusion. Run as primary IV, not intended for KVO. dextrose (D10W) 10% bolus 250 mL(Linked Group 3) 250 mL, intravenous, at 1,000 mL/hr, Administer over 15 Minutes, Every 15 min PRN, blood glucose less than 70 mg/dL and UNABLE to swallow/take PO glucose/juice., Starting on Sat11/15/23 at 1623, After treatment for hypoglycemia, recheck BG followed by treatment every 15 minutes until the BG is greater than 100 mg/dL. Then check BG 1 hour post treatment. If BG is less than 100 mg/dL, repeat Q15 minute BG checks and treatment. Call MD for each episode of hypoglycemia., Indications: hypoglycemic disorder dextrose gel in packet 15 g(Linked Group 3) 15 g, oral, Every 15 min PRN, low blood sugar, blood glucose less than 70 mg/dL, Starting on Sat11/15/23 at 1623, If patient is alert and able to [...] unable to take PO glucose/juice., Starting on Sat11/15/23 at 1623, After Glucagon is administered, position patient on [...] 1 mL SWFI. Use immediately following reconstitution. sodium chloride 0.9% flush 0.5-20 mL 0.5-20 mL, intra-catheter, As needed, line care, Starting on Sat11/15/23 at 1606, Flush volume based on line type and size. Flush before and after each use. sodium chloride 0.9% flush 0.5-20 mL(Linked Group 2) 0.5-20 mL, intra-catheter, As needed, line care, Starting on Sat11/15/23 at 1606, Flush volume based on line type and size. Flush before and after each use. Linked Groups Order Group 1: brimonidine (ALPHAGAN) 0.2 % ophthalmic solution 1 dropJump to med 1 drop, left eye, 2 times daily, First dose on Sat11/15/23 at 2100, Indications: open angle glaucoma And timolol (TIMOPTIC) 0.5 % ophthalmic solution 1 dropJump to med 1 drop, each eye, 2 times daily, First dose on Sat11/15/23 at 2100, Indications: open angle glaucoma Group 2: Saline lock IV (CANCELED) Routine, Once (Routine), On Sat11/15/23 at 1607, For 1 occurrence And sodium chloride 0.9% flush 0.5-20 mLJump to med 0.5-20 mL, intra-catheter, Every 8 hours scheduled, First dose on Sat11/15/23 at 1645, Flush volume based on line type and size. And sodium chloride 0.9% flush 0.5-20 mLJump to med 0.5-20 mL, intra-catheter, As needed, line care, Starting on Sat11/15/23 at 1606, Flush volume based on line type and size. Flush before and after each use. And Carrier Fluids for Secondary Infusion - 0.9% Sodium ChlorideJump to med 30 mL, intravenous, As needed, For priming tubing and/or flushing, Starting on Sat11/15/23 at 1606, 0-250 ml/hr to flush line after IV infusions when no maintenance IV ordered. Infuse 30mL at the same rate as the secondary infusion. Run as primary IV, not intended for KVO. Group 3: dextrose gel in packet 15 gJump to med 15 g, oral, Every 15 min PRN, low blood sugar, blood glucose less than 70 mg/dL, Starting on Sat11/15/23 at 1623, If patient is alert and able to [...] UNABLE to swallow/take PO glucose/juice., Starting on Sat11/15/23 at 1623, After treatment for hypoglycemia, recheck BG followed [...] Ordered Date acetaminophen (TYLENOL) tablet 650 mg 09/2023 blood glucose diagnostic strip 11/15/2023 Carrier Fluids for Secondary Infusion - 0.9% Sodium Chloride 2 11/15/2023 celecoxib (CeleBREX) capsule 200 mg 11/14 dextrose (D10W) 10% bolus 250 mL 11/15/19 dextrose gel in packet 15 g 11/15/2023 glucagon injection 1 mg 11/15/2023 metFORMIN (GLUCOPHAGE) tablet 500 mg 09/2023 semaglutide (OZEMPIC) injection 2 mg 09/2023 sodium chloride 0.9% flush 0.5-20 mL 3 09/2023 Lab Orders Without Results Count Last Ordered D ate First Ordered Date POCT GLUCOSE DEVICE 2 11/16/2023 Admission Count Last Ordered Date First Orde red Date INITIATE OBSERVATION SERVICES 11/16/2023 ADMIT TO INPATIENT 11/15/2023 Discharge Count Last Ordered Date First Orde red Date DISCHARGE PATIENT 1 11/16/2023 ADT Patient Update Count Last Ordered Date Firs t Ordered Date PROVIDER TREATMENT TEAM 1 11/15/2023 documented in this encounter Care Teams Cad Intern Relationship Specialty Start Date End Date Elpidio Serrato MD PCP - General Internal Medicine 06/09/18 documented as of this encounter
--- OUTSIDE RECORDS SUMMARY | 2024-04-29 14:07 | XMS_ITS | Encounter Summary ---
Author Organization [facility] Address [address] [place] [address] Phone Care Team Providers Care Lining Parts Sewer Name Role Phone Elpidio Serrato MD Primary Care Provider [phone] Reason for Visit * Reason Onset Date Comments Letter and Labs 10/30/2023 Encounter Details Date Type Department Care Team (Late st Contact Info) Description 10/30/2023 Telephone [facility] Endocrinology Metabolism and Lipid [address] [place] [address] Martha Boyer RMA Letter and Labs Social History Tobacco Use Types Packs/Day Years [...] on file 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 documented in this encounter Plan of Treatment Not on file documented as of this encounter Visit Diagnoses Not on filedocumented in this encounter Care Teams Lining Parts Sewer Relationship Specialty Start Date End Date Elpidio Serrato MD PCP - General Internal Medicine 06/09/18 documented as of this encounter
--- OUTSIDE RECORDS SUMMARY | 2024-04-29 14:07 | XMS_ITS | Encounter Summary ---
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 EKG and Stress in [facility]. * Telephone Encounter - Susannah Brennan - 11/04/2023 3:13 PM CDT Diagnosis/Reason for Appointment: R06.09 (ICD-10-CM) - Dyspnea on exertion Referring Physician: Dr. Merna Bell Ref Ph: If Referring MD is not PCP, list specialty: Endocrinology Triage Questions Yes No Who/Where/When/Notes Have you ever been diagnosed with cancer, or undergone cancer treatments? [] [x] If 'Yes', Schedulefirst available with Cardio-Oncology If yes where were you treated? Have you ever seen a Men'S Designer in an office setting? [x] [] [facility] IF SCHEDULING PATIENT WITH MATERNAL Have you had a baby in the last year or are you ? (If yes send to Dr. Aguilar for review) [] [] Have you had heart or blood pressure problems during a previous ? (If yes send to Dr. Aguilar for review) [] [] Dr. Glenna Roberts Patients only: Are you a hemodialysis or peritoneal dialysis patient? 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 (If yes schedule in Sports Medicine clinic [] [] Patient History Questions Yes No Where/When/Notes Have you EVER been hospitalized for ANY cardiac issue? [x] [] [facility] Have you ever had any cardiac testing, imaging, or procedures? (Testing - echo, EKG, stress) (Imaging - Cardiac MRI, CT or calcium scoring) (Procedure - Ablation, Cardioversion, CABG, Cath) [x] [] Testing - [facility] Have you ever had a sleep study? [] [x] Do you have a device? If yes what type? (Pacemaker, Defibrillator, Implanted Loop Recorder) [] [x] If yes, where and when was device put in? 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 ([employer], [employer], [place]) Appointment Date: 11/08/2023 Provider: Rater, SUPERVISOR P[employer]ER PRODUCTS Location: [facility] [x] Confirm appt date, time, provider and location. [] Advise pt to arrive 15-20 min early. [x] Advise patient to bring medications/list, photo ID and insurance card [] Advise of New Patient Packet being mailed to them. documented in this encounter Plan of Treatment Not on file documented as of this encounter Visit Diagnoses Not on filedocumented in this encounter Care Teams Garbage Pick Up Man Relationship Specialty Start Date End Date Elpidio Serrato MD PCP - General Internal Medicine 06/09/18 documented as of this encounter
--- OUTSIDE RECORDS SUMMARY | 2024-04-29 14:07 | XMS_ITS | Encounter Summary ---
Author Organization [facility] Healthcare Address [address] [place] [address] Care Team Providers Care Customs Guard Name Role Phone Elpidio Serrato MD Primary Care Provider [phone] Reason for Visit * Auth/Cert (Routine) Specialty Diagnoses / Procedures Referred By Contac t Referred To Contact Diagnoses Abnormal stress echocardiogram Abnormal stress echocardiogram [R94.39] Procedures Right Left Heart Catheterization with Coronary Angiography with or without Left Ventriculography [id number] Referral ID Status Reason Start Date Expiration Date Visits Re quested Visits Authorized [id number] 1 1 Encounter Details Date Type Department Care Team (Late st Contact Info) Description 11/25/2023 6:46 AM CDT - 11/25/2023 2:00 PM CDT Hospital Encounter [facility] [address] [place] [address] Kvng Gibson MD [address] [address] Abnormal stress echocardiogram Discharge Disposition: Discharge to home or self [...] on file Legal Sex Female 3:59 AM VP PRODUCT MARKETING Gender Identity Female 05/13/2021 4:21 PM VP PRODUCT MARKETING Sexual Orientation Not on file documented as of this encounter Last Filed Vital Signs Vital Sign Reading Time Taken Comments Blood Pressure 129/58 11/25/2023 1:00 PM CDT Pulse 72 11/25/2023 1:00 PM CDT Temperature 36.6 ??C (97.9 ??F) 11/25/2023 7:35 AM CD T Respiratory Rate 12 11/25/2023 1:00 PM CDT Oxygen Saturation 99% 11/25/2023 1:00 PM CDT Inhaled Oxygen Concentration - - Weight 92.5 kg (204 lb) 11/25/2023 7:35 AM CDT Height 149.9 cm (4' 11 ) 11/25/2023 7:35 AM CDT Body Mass Index 41.2 11/25/2023 7:35 AM CDT documented in this encounter Discharge Instructions * Discharge Instructions* Adrianna Vargas, FAVOR MAKER - 11/25/2023 10:12 AM CDT Discharge Instructions [...] medication please notify your primary provider and/or welfare supervisor immediately. If you notice bleeding at the [...] M-F call our Outpatient Nurse Coordinators at [phone]. If you need to speak to someone after 5pm please call [facility] at [phone] and ask the sawmilling operator topage the Cardiac Software Developer Mid Level Fellow automation engineer. documented in this encounter Medications at Time [...] EVERY DAY 90 tablet 3 3 04/07/20 metFORMIN (GLUCOPHAGE) 500 mg tabletIndications:Typ e 2 [...] chest pain 90 tablet 1 4 01/28/20 semaglutide (OZEMPIC) 2 mg/dose (8 mg/3 mL) pen injector injection Inject 2 mg under the skin once a week 9 mL 3 4 03/30/20 24 documented as of this encounter Discharge Disposition Disposition Code Departure Means Destination Comment s Discharge to home or self care documented in this encounter Consult Notes * Jessica uGtierrez NP - 11/25/2023 10:13 AM CDT Cardiothoracic Surgery Consult Referring Physician/Service: Dr. Gibson Consult Attending Staffing Case: Dr. Treviño Reason for consult: MV CAD, CABG evaluation No chief complaint on file. Patient is a 73 y.o. female with chief complaint of positive stress test. HPI: 73y/o F with DM, glaucoma, HTN, hypothyroidism, CKD-stage3, HLD,obesity, recently positive stress test who presented to [facility] today for LHC. Over the past three [...] LHC which showed severe MV CAD with SEASONAL GREENERY BUNDLER of RCA, heavily calcified disease in the [...] Date Cataract CHF (congestive heart failure) (CMS/HCC) ([facility]) Coronary artery disease Diabetes mellitus (HCC) Diabetic [...] CATARACT EXTRACTION Right 06/14/2022 CE/IOL + goniotomy MD APPENDECTOMY unkown dates per pt MD DELIVERY ONLY Section - in 1972 and 1975 (Added by TW Conv) MD TENDON SHEATH INCISION Hand Incision Tendon Sheath Of A Finger - right hand, III finger, 4/10 (Added by TW Conv) HOME MEDICATIONS : [...] 650 mg, oral, Q4H PRN, Adrianna Vargas, FAVOR MAKER Carrier Fluids for Secondary Infusion - 0.9% Sodium Chloride, 30 mL, intravenous, PRN, Adrianna Vargas, FAVOR MAKER sodium chloride 0.9% flush 0.5-20 mL, 0.5-20 mL, intra-catheter, Q8H LAMONTE, Adrianna Vargas, FAVOR MAKER sodium chloride 0.9% flush 0.5-20 mL, 0.5-20 mL, intra-catheter, PRN, Adrianna Vargas, FAVOR MAKER [COMPLETED] sodium chloride 0.9% bolus 267 mL, 3 mL/kg, intravenous, Once, 267 mL at 11/25/23 0808 FOLLOWED BY sodium chloride 0.9% infusion, 1 mL/kg/hr, intravenous, Continuous, Adrianna Vargas NP, Last Rate: 89.1 mL/hr at 11/25/23 0809, 1 mL/kg/hr at 11/25/23 0809 sodium chloride 0.9% infusion, 100 mL/hr, intravenous, Continuous, Kvng Gibson MD, Last Rate: 100 mL/hr at 11/25/23 09, 100 mL/hr at 11/25/23925 Allergies Allergen Reactions [...] 11/25/2023 , Coags: No results found for: MD , PT , PTT , APTT , [...] of test: 11/15/2023 Hospital #: 0 Location: [facility] Interpreted by: Vandana Isaacs MD Materials Buyer: Olimpia Brandon RDCS RN: Shelby Jacobo RN Reason for Test: Dyspnea Study quality: Technically good Referring Physician: GAURAV ROBLERO MD Contrast Agent: 3.0 ml Optison Administered BASELINE STUDY: Wall Motion Scoring (1=Normal 2=Hypo 3=Akinetic 4=Dyskin./Aneurysm 0=Not visualized) Parasternal Long [place]:MAS=1 BAS=1 MIL=2 ROBERT=2 Parasternal Short [place]:MAS=1 MIS=1 [place]=1 MIL=2 MAL=1 MA=1 Apical 4 Chambers:=1 MIS=1 BIS=3 BAL=1 MAL=1 AL=1 AC=3 Apical 2 Chambers:AI=1 AZ=1 BI=3 BA=1 MA=1 AA=2 AC=3 Ejection Fraction: [...] No MS/ mild MR; No TR; No MD. Diastolic Function: Grade I (impaired relaxation) with nl est filling pressures.Unable to estimate PASP d/t inadequate TR jet. Baseline HR: 77 Baseline BP: 115/57 Conduction Defects: RBBB + LAFB Resting ECG Comments: [facility] Medications: Lasix, Aspirin, Lipitor, evothyroxine, Metformin, Insulin Meds held: none POST DOBUTAMINE STUDY: Wall Motion Scoring (1=Normal 2=Hypo 3=Akinetic 4=Dyskin./Aneurysm 0=Not visualized) Parasternal Long [place]:MAS=1 BAS=1 MIL=3 ROBERT=3 Parasternal Short [place]:MAS=1 MIS=1 AZ=1 MIL=3 MAL=1 MA=1 Apical 4 Chambers:=1 MIS=1 BIS=1 BAL=1 MAL=1 AL=1 AC=2 Apical 2 Chambers:AI=1 AZ=1 BI=3 BA=1 MA=1 AA=1 AC=2 Intravenous dobutamine [...] d/w Dr. Tammy Alfaro. Revised on 11/15/2023 13:54:34 by Vandana Isaacs MD By signing this report, the attending welfare supervisor certifies that he or she has personally [...] system. Occluded in the proximal segment with [id number] septal collaterals from the LAD COMPLICATIONS: None. [...] recently positive stress test who presented to [facility] today for LHC. LHC today showed severe MV CAD with SEASONAL GREENERY BUNDLER of RCA, heavily calcified disease in the [...] Chloride 30 mL intravenous PRN Adrianna Vargas, FAVOR MAKER sodium chloride 0.9% bolus 267 mL 3 mL/kg intravenous Once Adrianna Vargas, JAMES Followed by sodium chloride 0.9% infusion 1 mL/kg/hr intravenous Continuous Adrianna Vargas, JAMES sodium chloride 0.9% flush 0.5-20 mL 0.5-20 mL intra-catheter Q8H LAMONTE Adrianna Vargas, JAMES sodium chloride 0.9% flush 0.5-20 mL 0.5-20 mL intra-catheter PRN Adrianna Vargas, FAVOR MAKER Laboratory review: Chemistry BMP No results found for: GLUCOSE , CALCIUM , SODIUM , POTASSIUM , CO2 , BUNSER , CREATININE , CBC:No results found for: WBC , RBC , HGB , HCT , MCV , MCH , MCHC , RDW , RDWCV , RDWSD , MPV , NRBC , NRBCABS , NRBCPCT , and Coags: No results found for: MD , PT , PTT , APTT , [...] : 1950 Date of Procedure: 11/25/2023 ORDERING GROUNDS SUPERVISOR: Surgeon(s): Kvng Gibson MD Procedure(s): Right Left Heart Catheterization with Coronary Angiography with or without Left Ventriculography [id number] Requested Diagnostic: [] Coronary Angiograms Only [] [...] + stress test on 11/15/23. Referred for [facility] for further evaluation. ALLERGIES: Pseudoephedrine and Valacyclovir [...] Yes [] No [] Contraindicated Indications for Software Developer Mid Level visit (Select all that apply): [] ACS [...] ESRD [] Dialysis [] HD []PD: Prior [place]: [] Yes [x] No If Yes, Most Recent [place] Date: Tobacco Use Social History Tobacco Use [...] Yes, Newly Diagnosed: [x] Yes [] No [facility] Class: [] Class I [] Class [...] Coordinator: Amador Rock RN Date: 11-20-23 Time: 1508 PHYSICAL EXAM There were no vitals filed [...] 73yoF with abnormal stress test here for [facility] Clinical Frailty Scale: [] 1: Very Fit [...] and Assessment Completed by: Name: Adrianna Vargas FAVOR MAKER-C Date: 11/25/23 Time: 729 Cosigned by Kvng [...] were not included. ?? Cardiovascular Procedure Center [facility] [address], [address] [place] [id number] CORONARY ANGIOGRAM REPORT Patient: Isabelle Lutz : ?? 1950 MR number: [id number] Date of Service: 11/25/2023 Public Safety Teacher: ?? Kvng Gibson MD Referring physician: ?? [...] obtained. The patient was brought to the cathead worker and placed on the table. The RIGHT [...] left ventriculogram was done. I provided direct exmc-nh-vygc moderate conscious sedation which administered by independent [...] system. ??Occluded in the proximal segment with btqe-ei-svdtc septal collaterals from the LAD COMPLICATIONS: None. DIAGNOSTIC Gaurav Roblero FAVOR MAKER CV CARDIAC CATH PROCEDURES Final Result * (ABNORMAL) CBC without differential (11/25/2023 8:50 AM CDT) [facility] Signature WBC 7.0 3.8 - 9.9 K/cumm Hgb 10.6(L) 11.9 - 15.5 g/dL [facility] Hct 32.2(L) 35.6 - 45.5 % [facility] Plt 165 150 - 400 K/cumm [facility] MPV 11.2 9.1 - 12.3 fL [facility] RBC 3.65(L) 3.90 - 5.20 M/cumm [facility] MCV 88.2 81.3 - 96.4 fL [facility] MCH 29.0 27.1 - 33.3 pg [facility] MCHC 32.9 32.3 - 35.7 g/dL [facility] RDW CV 12.5 11.1 - 14.9 % [facility] RDW SD 40.1 35.7 - 48.1 fL [facility] NRBC abs 0.00 0.00 - 0.01 K/cumm [facility] Blood 11/25/2023 8:50 AM CDT 11/25/2023 9:22 AM CDT Narrative [facility] - 11/25/2023 9:37 AM CDT To be drawn after hydration bolus complete us Adrianna Vargas NP LAB BLOOD ORDERABLES Final Re sult [facility] Department [place] [place] [address] * POCT glucose (11/25/2023 8:06 AM CDT) [facility] Signature Glucose, POC 111 70 - 199 mg/dL Blood 11/25/2023 8:06 AM CDT 11/25/2023 8:06 AM CDT us Kvng Gibson MD LAB POCT ORDERABLES - DEVICE Final Result [facility] Department [place] [place] [address] documented in this encounter Visit Diagnoses Diagnosis [...] as primary IV, not intended for KVO. sodium chloride 0.9% bolus 267 mL 267 [...] 11/25/2023 8:09 AM CDT 1 mL/kg/hr 89.1 mL/hr sodium chloride 0.9% infusion 100 mL/hr, intravenous, Continuous, Starting on Sat11/25/23 at 1000, For 4 hours New Bag 11/25/2023 9:26 AM CDT 100 mL/hr 100 mL/hr documented in this encounter Active and Recently Administered Medications Times are shown in CDT. Scheduled Medication Order 11/23/2023 11/24/2023 11/25/2023 aspirin chewable tablet 162 mg (COMPLETED) 162 mg, oral, Once, On Sat11/25/23 at 0830, For 1 dose, Pre-Procedure (CV) 0822 (Given - Provid er: Jacki Barron RN) sodium chloride 0.9% bolus 267 mL [...] (CV) 0843 (Given - Provid er: Geovanna Marisol Arnold, RN)0900 (Given - Provider: Geovanna Arnold RN) heparin 1,000 unit/mL injection (CANCELED) Code/trauma/sedation medication, Starting on Sat11/25/23 at 0925, Intra-Procedure (CV) 0925 (Given - Provid er: Geovanna Arnold RN) ioversoL (OPTIRAY 350) injection (CANCELED) Code/trauma/sedation medication, Starting on Sat11/25/23 at 0921, Intra-Procedure (CV) 0921 (Given - Provid er: David Douglas MD) [...] for Secondary Infusion - 0.9% Sodium Chloride 11/25/2023 fentaNYL (SUBLIMAZE) preserv ative free injection 11/25/2023 heparin 1,000 unit/mL injection ioversoL (OPTIRAY 350) injection 11/25/19 lidocaine (XYLOCAINE) 10 mg/ mL (1 %) injection 11/25/2023 midazolam (VERSED) 2 mg/2 mL preservative free injection 1 11/25/2023 niCARdipine (CARDENE) 1 mg/1 0 mL in sodium chloride 0.9% (premix) 11/25/2023 nitroglycerin injection 100 mcg/mL in D5W 10 mL 11/25/2023 sodium chloride 0.9% flush 0.5-20 mL 2 11/10 Discharge Count Last Ordered Date First Orde red Date DISCHARGE PATIENT 11/25/2023 CORE MEASURES Count Last Ordered Date First Ord ered Date REASON FOR NO VTE PROPHYLAXIS AT ADMISSION 1 11/25/2023 documented in this encounter Care Teams Customs Guard Relationship Specialty Start Date End Date Elpidio Serrato MD PCP - General Internal Medicine 06/09/18 documented as of this encounter
--- OUTSIDE RECORDS SUMMARY | 2024-04-29 14:07 | XMS_ITS | Encounter Summary ---
Author Organization [facility] Address [address] [place] [address] Phone Care Team Providers Care Canteen Manager Name Role Phone Elpidio Serrato MD Primary Care Provider [phone] Encounter Details Date Type Department Care Team (Late st Contact Info) Description 11/19/2023 Telephone [facility] Cardiology [address] [place] [address] [place] [address] Kvng Gibson MD [address] [place], [place] [id number] Social History Tobacco Use Types Packs/Day Years [...] on file Legal Sex Female 3:59 AM LOCK MASTER Gender Identity Female 05/13/2021 4:21 PM LOCK MASTER Sexual Orientation Not on file documented as of this encounter Miscellaneous Notes * Telephone Encounter - Yumiko Alejo RN - 11/20/2023 11:58 AM CDT See other phone encounter * Telephone Encounter - Kvng Gibson MD - 11/20/2023 9:13 AM CDT If those do not work patient I can also do next the 18 * Telephone Encounter - Kvng Gibson MD - 11/20/2023 8:19 AM CDT Can do tomorrow or Saturday. * Telephone Encounter - Shelton Charles RN - 11/19/2023 3:55 PM CDT ----- Message from Nurse Yumiko Leiva sent at 11/19/2023 9:05 AM CDT ----- Does Dr. Gibson have any chemistry lab instructor openings soon for a [facility] and [facility]? ----- Message ----- From: Rose Mendoza RN Sent: 11/18/2023 2:29 PM CDT To: Yumiko Alejo RN You can check with Dr Gibson (send to Elizabeth Gibson) see if he is available. ----- Message ----- From: Yumiko Alejo RN Sent: 11/18/2023 12:51 PM CDT To: Rose Mendoza RN He is not available on Saturday. Does anyone else's schedule look like they may have openings? ----- Message ----- From: Rose Mendoza RN Sent: 11/18/2023 12:30 PM CDT To: Yumiko Alejo RN; # Check with Gage Rockwell (Dr Lawton) for this Saturday11/22/23 see if he is available to do this . ----- Message ----- From: Yumiko Alejo RN Sent: 11/18/2023 10:30 AM CDT To: [facility] Cath/Ep/Jean/Vasc Scheduling Pool What are the soonest available L/R HC dates? Patient had abnormal stress test. Yumiko Alejo RN, BSN Clinical Nurse Coordinator [facility] Cardiology documented in this encounter Plan of Treatment Not on file documented as of this encounter Visit Diagnoses Not on filedocumented in this encounter Care Teams Canteen Manager Relationship Specialty Start Date End Date Elpidio Serrato MD PCP - General Internal Medicine 06/09/18 documented as of this encounter
--- OUTSIDE RECORDS SUMMARY | 2024-04-29 14:08 | XMS_ITS | Encounter Summary ---
Author Organization [facility] Address [address] [place] [address] Phone Care Team Providers Care Adon Name Role Phone Elpidio Serrato MD Primary Care Provider [phone] Reason for Visit * Reason Comments Post-op Follow-up Encounter Details Date Type Department Care Team (Late st Contact Info) Description 08/24/2022 10:15 AM CDT Office Visit [facility] Ophthalmology [facility] [place] [address] Makayla Ramos MD [address] [place] [address] Primary open angle glaucoma (POAG) of both eyes, moderate stage (Primary Dx) Social History Tobacco Use Types [...] Never 08/03/2022 Personal Safety Answer Date Recorded Have you ever been in or are you currently in a harmful physical or emotional relationship or is someone making you feel afraid or unsafe? Denies 08/16/2022 Comments Unknown Sex and Gender Information Value Date Recorded Sex Assigned at Not on file Legal Sex Female 3:59 AM HYDROELECTRIC MECHANIC Gender Identity Female 05/13/2021 4:21 PM HYDROELECTRIC MECHANIC Sexual Orientation Not on file documented as of this encounter Progress Notes * Makayla Ramos MD - 08/24/2022 10:15 AM CDT Assessment/Plan Diagnoses and all orders for this visit: Primary open angle glaucoma (POAG) of both eyes, moderate stage (Primary) Assessment & Plan: POW1 Extraction Cataract - Phacoemulsification And Lens [...] or redness the patient is to call. I have seen/examined the patient and I agree with the findings/plan of the Resident/Fellow documented in this encounter Miscellaneous Notes * Assessment & Plan Note - Vincent Gamboa MD - 08/24/2022 10:32 AM CDT Associated Problem(s): Primary open angle glaucoma (POAG) of both eyes, moderate stage POW1 Extraction Cataract - Phacoemulsification And Lens [...] or redness the patient is to call. documented in this encounter Plan of Treatment Not on file documented as of this encounter Visit Diagnoses Diagnosis Primary open angle glaucoma (POAG) of both eyes, moderate stage- Primary documented in this encounter Eye Exam Visual Acuity (Snellen - Linear) Right eye Left eye Dist sc 20/20 20/20 -1 Tonometry (Applanation, 10:27 AM) Right eye Left eye Pressure 13 14 Neuro/Psych Oriented x3: Yes Mood/Affect: Normal External Exam Right eye Left eye External Normal Normal Slit Lamp Exam Right eye Left eye Lids/Lashes Normal Normal Conjunctiva/Sclera White and quiet trace injecti on Cornea Clear Clear Anterior Chamber Deep and quiet deep, rare cell Iris Round and reactive Round and newton ctive Lens PCIOL PCIOL Care Teams Adon Relationship Specialty Start Date End Date Elpidio Srerato MD PCP - General Internal Medicine 06/09/18 documented as of this encounter
--- OUTSIDE RECORDS SUMMARY | 2024-04-29 14:08 | XMS_ITS | Encounter Summary ---
Author Organization [facility] Address [address] [place] [address] Phone Care Team Providers Care Viscose Cellar Worker Name Role Phone Elpidio Serrato MD Primary Care Provider [phone] Encounter Details Date Type Department Care Team (Latest Contact Info) Description 04/29/2023 8:20 AM CLINICAL TRIALS ASSISTANT Office Visit [facility] Endocrinology Metabolism and Lipid [address] [facility] [address] 13[address] [place] [address] [place] [address] Merna Bell MD [address] [facility] [address] [place] [address] 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, with long-term current use of insulin, unspecified laterality (HCC) (Primary Dx); Age-related osteoporosis without current pathological fracture; Vitamin D deficiency Social History Tobacco Use Types Packs/Day Years Used Date Smoking Tobacco: Never Smokeless Tobacco: Never Tobacco Cessation:Counseling Given: Not Answered AUDIT-C Answer Date Recorded Q1: How often [...] on file Legal Sex Female 3:59 AM CLINICAL TRIALS ASSISTANT Gender Identity Female 05/13/2021 4:21 PM CLINICAL TRIALS ASSISTANT Sexual Orientation Not on file documented as of this encounter Last Filed Vital Signs Vital Sign Reading Time Taken Comments Blood Pressure 118/56 04/29/2023 8:05 AM CLINICAL TRIALS ASSISTANT Pulse 78 04/29/2023 8:05 AM CLINICAL TRIALS ASSISTANT Temperature 36.7 ??C (98.1 ??F) 04/29/2023 8:05 AM CS T Respiratory Rate - - Oxygen Saturation - - Inhaled Oxygen Concentration - - Weight 93.6 kg (206 lb 6.4 oz) 04/29/2023 8:05 A M CLINICAL TRIALS ASSISTANT Height 151.9 cm (4' 11.8 ) 04/29/2023 8:05 AM CS T Body Mass Index 40.58 04/29/2023 8:05 AM CLINICAL TRIALS ASSISTANT documented in this encounter Patient Instructions * Patient Instructions* Merna Bell MD - 04/29/2023 8:20 AM CLINICAL TRIALS ASSISTANT Schedule Reclast infusion ICAL TRIALS ASSISTANT documented in this encounter Progress Notes * Merna Bell MD - 04/29/2023 8:20 AM CST Images from the original note were not included. Endocrinology Outpatient Clinic Note Patient: Isabelle Lutz, 73 y.o. female (: 1950 ) PCP: Elpidio Serrato MD (Referring: Referral, Self) CC: diabetes HPI & Subjective 70 y.o. female who returns for follow up of Type 2 Diabetes, Hypertension and Hyperlipidemia. Diabetes was diagnosed at age [age], duration 28 years. Glucose control has improved in the past 6 years or so, prior to that her A1c was typically >8%, She reports that her peak weight was ~260#, steady decline after starting GLP1-RA. A1c in the past year has been 5.4% - 6.0%. Today it is 5.8%. Current therapy Lantus 50 - 55 units Humalog 10 units with meals. metformin 500 mg AM Ozempic, 1 mg weekly Jardiance 10 mg Daily. She is now using the Dexcom G6 CGM, which she finds very helpful, and has reduced the frequency of her fingerstick glucose tests. She uses it continuously for frequent monitoring, safety and to adjust insulin doses. CGM Interpretation Sensor Usage; 100% Mean BG 132 mg/dl, which is a significant improvement from the last visit. Time in Range 78% High 17% Low 4% <1% Very Low Pattern analysis; some mild hypoglycemia mid-morning and in the evening with increased variability.For recommendations, see plan. By way of complications Isabelle Lutz reports no diabetic retinopathy She had laser to her right eye in May,, for glaucoma, not for diabetes. She had cataract extractions ou, now only requires reading glasses. Glaucoma surgeries were 2019 and August,. She has mildly reduced kidney function, GFR 50. Isabelle has severe osteoarthritis of her knees, [...] gm/cm -4.0% decrease which is considered significant. DXA was repeated today. She takes vit D 50,000 weekly on Sat. She denies falling (ie, not recently). She takes levothyroxine 88 mcg daily, takes in on an empty stomach and doesn't eat for an hour. PMH / PSH Past Medical History: Diagnosis Date Cataract Diabetes mellitus (HCC) Diabetic retinopathy (HCC) Glaucoma Multiparity History Of ___ Previous Pregnancies - 7 pregnancies, 2 children - C-sections. (Added by TW Conv) Nonproliferative diabetic retinopathy (HCC) 11/03/2009 Personal history of other specified conditions History of chest pain - Stress test negative on 08/01/06 (Added by TW Conv) Past Surgical History: Procedure Laterality Date CATARACT EXTRACTION Right 06/14/2022 CE/IOL + goniotomy [place] APPENDECTOMY unkown dates per pt [place] DELIVERY ONLY Section - in 1972 and 1975 (Added by TW Conv) [place] TENDON SHEATH INCISION Hand Incision Tendon Sheath [...] negative. Vitals & Physical Exam Blood pressure 118/56, pulse 78, temperature 36.7 ??C (98.1 ??F), height 151.9 cm (4' 11.8 ), weight 93.6 kg (206 lb 6.4 oz). Body mass index is 40.58 kg/m??. Physical Exam Gen : no acute distress, alert, appropriate, cooperative, appears stated age, well-developed, well-nourished HENT : normocephalic, atraumatic, moist mucus membranes. Thyroid exam : no palpable nodules Eyes : conjunctiva clear, anicteric Pulm : non-labored, on room air CV : regular rate & rhythm Extr : atraumatic, no edema, has brittle nails with spooning Skin : turgor normal, no rashes/wounds/lesions Neuro : alert, speech fluent, comprehension intact, moving all extremities Psych : cooperative, appropriate affect & mood, good insight & judgment Data Medications, labs, imaging, and diagnostics independently reviewed in Epic and commented on below. Allergies: Pseudoephedrine and Valacyclovir HOME MEDICATIONS : acetaminophen (TYLENOL) 325 mg tablet aspirin 81 mg enteric coated tablet atorvastatin (LIPITOR) 20 mg tablet blood glucose diagnostic (glucose blood) strip brimonidine-timoloL (Combigan) 0.2-0.5 % ophthalmic solution celecoxib (CeleBREX) 200 mg capsule empagliflozin (Jardiance) 10 mg tablet ergocalciferol (VITAMIN D) 50,000 unit capsule insulin glargine (BASAGLAR) 100 unit/mL (3 mL) pen for injection insulin lispro (HumaLOG, ADMELOG) 100 unit/mL vial for injection latanoprost (XALATAN) 0.005 % ophthalmic solution levothyroxine (SYNTHROID) 88 mcg tablet metFORMIN (GLUCOPHAGE) 500 mg tablet olmesartan (BENICAR) 40 mg tablet Ozempic 1 mg/dose (4 mg/3 mL) pen injector injection pen needle, diabetic (BD Ultra-Fine Hailee Pen Needle) 32 gauge x 5/32 needle Lab Results Component Value Date TSH 1.69 06/25/2022 FREET4 1.39 12/09/2017 Lab Results Component Value Date CHOL 173 06/25/2022 TRIG 108 06/25/2022 HDL 49 (L) 06/25/2022 LDLCALC 91 01/13/2021 LDLDIRECT 102 03/31/2019 Lab Results Component Value Date PTH 71 06/25/2022 25HYDROVITD 40 01/13/2021 Lab Results Component Value Date HGBA1C 5.8 04/29/2023 Assessment & Plan Type 2 diabetes mellitus ([facility]) Glucoses are excellent , A1c 5.8%, which is excellent - Continue use of Dexcom CGM for frequent monitoring, insulin dose adjustments and safety (alarms) - Continue metformin, Ozempic and Jardiance - Continue on same basal/bolus regimen, no change in doses Hypertension Pt takes Benicar, 40 mg daily Vitamin D deficiency Osteopenia - repeat DEXA, progressive osteopenia --> osteoporosis - Pt has osteopenia, and with substantial drop in BMD, should be treated. - continue on Vit D supplements - Check vitamin D - Reclast is ordered Hyperlipidemia - LDL 104 , on lipitor 20 mg daily , recheck today - This is not quite at target, consider addition of ezetimibe (not discussed at the visit). Hypothyroidism - TSH 06/2022= 1.6 - continue current dose of levothyrxoine Orders Placed This Encounter CBC with auto differential Comprehensive metabolic panel TSH reflex to free T4 Lipid panel Albumin Creatinine Ratio, Urine Vitamin D 25 hydroxy POCT glucose POCT hemoglobin A1c -- Merna Bell MD tool and cutter grinder Endocrinology, Metabolism, & Lipid Research ICAL TRIALS ASSISTANT documented in this encounter Plan of Treatment Not on file documented as of this encounter Procedures Procedure Name Priority Date/Time Associated Diagnosis Comments POCT HEMOGLOBIN A1C Routine 04/29/2023 8:15 AM CLINICAL TRIALS ASSISTANT 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, with long-term current use of insulin, unspecified laterality (HCC) POCT GLUCOSE 46895 Routine 04/29/2023 8: 12 AM CLINICAL TRIALS ASSISTANT 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, with long-term current use of insulin, unspecified laterality (HCC) documented in this encounter Results * Vitamin D 25 hydroxy (04/29/2023 8:58 AM CLINICAL TRIALS ASSISTANT) Vitamin D 74.6 20.0 - 100.0 ng/mL [facility] Comment: VITAMIN D DEFICIENCY = LESS THAN or EQUAL TO 20 ng/mL VITAMIN D INSUFFICIENCY = 21 - 29 ng/mL VITAMIN D SUFFICIENT = 30-100 ng/mL Blood 04/29/2023 8:58 AM CLINICAL TRIALS ASSISTANT 04/29/2023 10:20 AM CLINICAL TRIALS ASSISTANT us Merna Bell MD LAB BLOOD ORDERABLES Final Re sult [facility] * Albumin Creatinine Ratio, Urine (04/29/2023 8:58 AM CLINICAL TRIALS ASSISTANT) Microalb, Ur 8.7 0.0 - 22.9 mg/L [facility] Comment:Repeated and Verifie d Random Urine Creatinine 103.8 mg/dL [facility] Microalb/Creat Ratio 8.4 0.0 - 29.9 mg/g [facility] Urine 04/29/2023 8:58 AM CLINICAL TRIALS ASSISTANT 04/29/2023 10:20 AM CLINICAL TRIALS ASSISTANT Merna Bell MD LAB URINE ORDERABLES Final Re sult Performing Organization Address [facility] Co de Phone Number [facility] * (ABNORMAL) Lipid panel (04/29/2023 8:58 AM CLINICAL TRIALS ASSISTANT) Triglycerides 147 <150 mg/dL [facility] Comment: Desirable: <150 mg/dL, fasting <175 mg/dL, non-fasting Persistently elevated triglycerides may enhance atherosclerotic cardiovascular disease. Total Cholesterol 172 <200 mg/dL [facility] Total HDL-C Direct 48(L) >50 mg/dL [facility] Comment: A low HDL-C may be inidcative of metabolic syndrome and enhance atherosclerotic cardiovascular disease risk. Non-HDL cholesterol 124 <220 mg/dL [facility] [place] LDL Chol 95 <190 mg/dL [facility] Blood 04/29/2023 8:58 AM CLINICAL TRIALS ASSISTANT 04/29/2023 10:20 AM CLINICAL TRIALS ASSISTANT Narrative [facility] - 04/29/2023 1:02 PM CLINICAL TRIALS ASSISTANT Current interpretive data was last updated April 14, 2021. For adults ages 40-79, the ACC/AHA recommends discussing your 10-year atherosclerotic cardiovascular disease risk with your health care provider. ??https://www.acc.org/ASCVDApp Merna Bell MD LAB BLOOD ORDERABLES Final Re sult Performing Organization Address [facility] Co de Phone Number [facility] * TSH reflex to free T4 (04/29/2023 8:58 AM CLINICAL TRIALS ASSISTANT) TSH (Thyrotropin) 1.65 0.27 - 4.20 uIU/mL [facility] Blood 04/29/2023 8:58 AM CLINICAL TRIALS ASSISTANT 04/29/2023 10:20 AM CLINICAL TRIALS ASSISTANT Merna Bell MD LAB BLOOD ORDERABLES Final Re sult Performing Organization Address [facility] Co de Phone Number [facility] * (ABNORMAL) Comprehensive metabolic panel (04/29/2023 8:58 AM CLINICAL TRIALS ASSISTANT) Total Protein 6.9 6.1 - 8.4 g/dL [facility] Albumin 4.3 3.5 - 5.2 g/dL [facility] Calcium 9.7 8.6 - 10.3 mg/dL [facility] BUN 31(H) 7 - 23 mg/dL [facility] Total Bilirubin 0.30 0.20 - 1.40 mg/dL [facility] Alk Phos, Total 101 35 - 129 IU/L [facility] AST (SGOT) 24 11 - 47 IU/L [facility] ALT (SGPT) 17 6 - 53 IU/L [facility] Creatinine 0.95 0.60 - 1.10 mg/dL [facility] Sodium 139 135 - 145 mmol/L [facility] Potassium 5.2(H) 3.3 - 5.1 mmol/L [facility] Chloride 107 95 - 107 mmol/L [facility] CO2 Content 21 21 - 29 mmol/L [facility] Glucose 155(H) 64 - 99 mg/dL [facility] Comment: NONFASTING GLUCOSE RANGE = 64-199 mg/dL FASTING GLUCOSE 64 - 99 = NORMAL FASTING GLUCOSE 100 - 125 = IMPAIRED FASTING GLUCOSE FASTING GLUCOSE >=126 = PROVISIONAL DIAGNOSIS OF DIABETES eGFR 62.9 >60.0 mL/min/1.7 3 m2 [facility] Blood 04/29/2023 8:58 AM CLINICAL TRIALS ASSISTANT 04/29/2023 10:20 AM CLINICAL TRIALS ASSISTANT us Merna Bell MD LAB BLOOD ORDERABLES Final Re sult [facility] * (ABNORMAL) CBC with auto differential (04/29/2023 8:58 AM CLINICAL TRIALS ASSISTANT) White Blood Count 8.9 3.6 - 11.2 K/uL [facility] RBC 4.34 3.63 - 4.92 M/uL [facility] Hemoglobin 12.8 11.9 - 15.5 g/dL [facility] Hematocrit 39.8 36.1 - 44.3 % [facility] MCV 91.7 80.0 - 97.6 fL [facility] MCH 29.6 26.7 - 33.7 pg [facility] MCHC 32.3(L) 32.7 - 35.5 g/dL [facility] RBC Dist Width 13.5 12.3 - 17.0 % [facility] Platelet Count 241 140 - 440 K/uL [facility] MPV 9.4 6.8 - 10.4 fL [facility] Neutrophils % 70.3 38.7 - 74.5 % [facility] Lymphocyte % 22.5 20.0 - 54.3 % [facility] Monocytes % 6.1 4.3 - 13.5 % [facility] Eosinophils % 0.8 0.0 - 6.0 % [facility] Basophil % 0.3 0.0 - 3.0 % [facility] Absolute Neutrophil 6.3 1.8 - 6.6 K/uL [facility] Absolute Lymphocyte 2.0 0.8 - 3.3 K/uL [facility] Absolute Monocyte 0.5 0.2 - 1.2 K/uL [facility] Absolute Eosinophil 0.1 0.0 - 0.5 K/uL [facility] Absolute Basophil 0.0 0.0 - 0.2 K/uL [facility] Nucleated RBC % 0.0 0.0 - 0.4 /100 WBC [facility] Blood 04/29/2023 8:58 AM CLINICAL TRIALS ASSISTANT 04/29/2023 10:20 AM CLINICAL TRIALS ASSISTANT us Merna Bell MD LAB BLOOD ORDERABLES Final Re sult [facility] * POCT hemoglobin A1c (04/29/2023 8:15 AM CLINICAL TRIALS ASSISTANT) Hemoglobin A1C, POC 5.8 % Blood 04/29/2023 8:15 AM CLINICAL TRIALS ASSISTANT Merna Bell MD POINT OF CARE TEST ORDERABLES Final Result * POCT glucose (04/29/2023 8:12 AM CLINICAL TRIALS ASSISTANT) Glucose Blood, POC 176 mg/dL Blood 04/29/2023 8:12 AM CLINICAL TRIALS ASSISTANT Merna Bell MD POINT OF CARE TEST ORDERABLES Final Result documented in this encounter Visit Diagnoses Diagnosis 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
--- OUTSIDE RECORDS SUMMARY | 2024-04-29 14:08 | XMS_ITS | Encounter Summary ---
Author Organization [facility] Healthcare Address [address] [place] [address] Care Team Providers Care Managed Care Specialist Name Role Phone Elpidio Serrato MD Primary Care Provider [phone] Reason for Visit * Auth/Cert Specialty Diagnoses / Procedures Referred By Contac t Referred To Contact Diagnoses Primary open angle glaucoma (POAG) of both eyes, moderate stage Nuclear sclerotic cataract of left eye Primary open angle glaucoma (POAG) of both eyes, moderate stage [H40.1132] Nuclear sclerotic cataract of left eye [H25.12] Procedures NH XCAPSL CTRC RMVL INSJ IO LENS PROSTH W/O ECP NH GONIOTOMY NH XCAPSL CTRC RMVL INSJ IO LENS PROSTH CPLX WO ECP EXTRACTION CATARACT - PHACOEMULSIFICATION AND LENS IMPLANT GONIOTOMY Referral ID Status Reason Start Date Expiration Date Visits Re quested Visits Authorized [id number] 1 1 Encounter Details Date Type Department Care Team (Latest Contact Info) Description 08/16/2022 9:00 AM CDT - 08/16/2022 9:45 AM CDT Surgery [facility] Operating Room [facility] [place] [address] Makayla Ramos MD [address] [place] [id number] EXTRACTION CATARACT - PHACOEMULSIFICATION AND LENS IMPLANT Surgery Details Date/Time Status Location OR Service Patient Class Case Cl ass Case Type Trauma Case? 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 Sexual Orientation Not on file documented as of this encounter Last Filed Vital Signs Vital Sign Reading Time Taken Comments Blood Pressure 95/49 08/16/2022 9:40 AM CDT Pulse 71 08/16/2022 9:45 AM CDT Temperature 36.1 ??C (97 ??F) 08/16/2022 9:08 AM CDT Respiratory Rate 13 08/16/2022 9:45 AM CDT Oxygen Saturation 99% 08/16/2022 9:45 AM CDT Inhaled Oxygen Concentration - - Weight 90.7 kg (200 lb) 08/03/2022 11:00 AM CDT Height 152.4 cm (5') 08/03/2022 11:00 AM CDT Body Mass Index 39.06 08/03/2022 11:00 AM CDT documented in this encounter Discharge Instructions * Discharge Instructions* Makayla Ramos MD - 08/16/2022 9:04 AM CDT Eye Surgery Post-Op Instructions Your surgeon???s name: Dr. Makayla Ramos MEDICATIONS: Start using your drops today. Wait 2-3 minutes between eye drops, with eyes closed gently. Bring all of your eye drops to appointments. EYE PROTECTION: Wear normal glasses, sunglasses or an eye shield at all times over the eye that had surgery. Wear an eye shield with a piece of tape from the forehead to the cheek at night and any time you are sleeping. ACTIVITY: Do NOT bend over below waist - bend at knees. Do NOT lift more than 10 lbs, which is about the weight of a gallon milk. Do NOT strain or do anything that would make your face turn red. Open your mouth when coughing or sneezing. Take a stool softener for constipation. It is okay to shower, but avoid getting dirty water directly in your eye. No swimming. Please call for the following: Decreasing vision Increasing pain or light sensitivity Worsening redness or discharge Flashes of light (even with your eyes closed), new floaters (like a cloud of bugs in your vision), or a curtain falling across your vision Whom to call with concerns: [phone] - [facility] or [phone] - [facility] If after hours, listen to the voicemail for instructions for contacting the [facility] distribution center administrator. Thank you for entrusting us with your eye care. * Attachments The following attachments cannot be sent through Care Everywhere. * [facility] PATHWAY TO EXCELLENT CARE AFTER SURGERY documented in this encounter Medications at Time of Discharge acetaminophen ER (TYLENOL) 650 mg 8 hr tabletIndications:Pa in Take 1 tablet (650 mg total) by mouth every 6 (six) hours as needed for pain aspirin 81 mg enteric coated tabletIndications:pr evention of thrombosis Take 1 tablet (81 mg total) by mouth every morning blood glucose diagnostic (glucose blood) strip Testing once daily 100 each 2 9 atorvastatin (LIPITOR) 20 mg tabletIndications:Mi xed hyperlipidemia TAKE 1 TABLET DAILY 90 tablet 3 2 03/11/20 23 brimonidine-timoloL (Combigan) 0.2-0.5 % ophthalmic solutionIndications: Primary open angle glaucoma (POAG) of both eyes, moderate stage Administer 1 drop into both eyes 2 (two) times a day 10 mL 11 1 02/12/20 23 celecoxib (CeleBREX) 200 mg capsule TAKE 1 CAPSULE DAILY. 90 capsule 3 2 12/05/19 23 ergocalciferol (VITAMIN D) 50,000 unit capsule TAKE 1 CAPSULE BY MOUTH ONCE WEEKLY 12 capsule 3 10/20/19 23 HUMALOG KWIKPEN INSULIN 100 unit/mL insulin pen INJECT 10 UNITS SUBCUTANEOUSLY AT BREAKFAST, 8 TO 12 UNITS AT LUNCH, AND 5 UNITS WITH SNACKS 45 mL 3 9 12/04/19 23 insulin glargine (BASAGLAR) 100 unit/mL (3 mL) pen for injection Inject 40 Units under the skin daily 45 mL 3 09/12/19 23 insulin lispro (HumaLOG, ADMELOG) 100 unit/mL vial for injectionIndications :type 2 diabetes mellitus Inject 10 Units under the skin 3 (three) times a day before meals Plus sliding scale 01/28/20 24 insulin lispro (HumaLOG, ADMELOG) 100 unit/mL vial for injectionIndications :type 2 diabetes mellitus Inject 5 Units under the skin daily as needed for high blood sugar (With snacks) 12/04/19 23 Jardiance 10 mg tabletIndications:Ty pe 2 diabetes mellitus (HCC) TAKE 1 TABLET DAILY 90 tablet 3 2 12/04/19 23 latanoprost (XALATAN) 0.005 % ophthalmic solutionIndications: Primary open angle glaucoma (POAG) of both eyes, moderate stage INSTILL 1 DROP INTO BOTH EYES NIGHTLY 7.5 mL 1 2 10/10/19 23 levothyroxine (SYNTHROID) 88 mcg tablet Take 1 tablet (88 mcg total) by mouth daily 90 tablet 3 2 04/12/20 23 metFORMIN (GLUCOPHAGE) 500 mg tablet TAKE 1 TABLET BY MOUTH TWICE A DAY 180 tablet 3 1 12/04/19 23 moxifloxacin (VIGAMOX) 0.5 % ophthalmic solution Administer 1 drop into the left eye 4 (four) times a day 5 mL 3 10/06/19 23 olmesartan-hydrochlo rothiazide (BENICAR HCT) 40-12.5 mg per tabletIndications:Ty pe 2 diabetes mellitus with 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, with long-term current use of insulin, unspecified laterality (HCC),Hypertension, unspecified type TAKE 1 TABLET BY MOUTH EVERY DAY 90 tablet 2 3 12/04/19 23 Ozempic 1 mg/dose (4 mg/3 mL) pen injector injectionIndications :Type 2 diabetes mellitus (HCC) INJECT 1MG SUBCUTANEOUSLY ONCE A WEEK. 9 mL 3 2 10/10/19 23 pen needle, diabetic (BD ULTRA-FINE WENDY PEN NEEDLE) 32 gauge x 5/32 needleIndications:Ty pe 2 diabetes mellitus with 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, with long-term current use of insulin, unspecified laterality (HCC) Use 4X daily 300 each 3 9 12/04/19 23 prednisoLONE acetate (PRED FORTE) 1 % ophthalmic suspension Administer 1 drop into the left eye 4 (four) times a day 4 times daily (when you wake up, lunch, dinner, bedtime). 5 mL 3 10/06/19 23 documented as of this encounter Ordered Prescriptions Prescription Sig Dispense Quantity Refills Last Filled Start Date End Date prednisoLONE acetate (PRED FORTE) 1 % ophthalmic suspension Administer 1 drop into the left eye 4 (four) times a day 4 times daily (when you wake up, lunch, dinner, bedtime). 5 mL 08/16/2022 3 moxifloxacin (VIGAMOX) 0.5 % ophthalmic solution Administer 1 drop into the left eye 4 (four) times a day 5 mL 08/16/2022 3 documented in this encounter Discharge Disposition Disposition Code Departure Means Destination Comment s Discharge to home or self care documented in this encounter H&P Notes * Swapna Head MD - 08/16/2022 7:16 AM CDT I have reviewed the H&P, examined the patient, and endorse the findings as written. Plan of Care : Based on the above findings, I consider Isabelle Lutz to be an acceptable risk for: Procedure(s): EXTRACTION CATARACT - PHACOEMULSIFICATION AND LENS IMPLANT GONIOTOMY Source Note - Marisol Mars NP - 08/03/2022 2:14 PM CDT Images from the original note were not included. [facility] for Preoperative Assessment and Planning Preoperative Evaluation Record Evaluation type/location: TPAP from [facility] Planned procedure site: [facility] CAM OR (Pod 4) Date: 08/03/22 NOTE: This note represents a preoperative evaluation initiated via telephone interview. NO PHYSICALEXAM was performed at the time of initial assessment. A physical exam may be added to this note anddocumented below. Anesthesia Evaluation Isabelle Lutz is a 72 y.o. female Procedure(s): EXTRACTION CATARACT - PHACOEMULSIFICATION AND LENS IMPLANT GONIOTOMY Pre-Op Diagnosis Codes: * Primary open angle glaucoma (POAG) of both eyes, moderate stage [H40.1132] * Nuclear sclerotic cataract of left eye [H25.12] HISTORY HPI 72 year old female with bilateral cataracts scheduled for cataract extraction and lenses implant. PMH includes CKD, T2DM, hypothyroid, obesity and glaucoma. Past Medical History Information obtained from: patient and chart. Neurological Pertinent negatives: neuromuscular disease; CVA/stroke and TIA Cardiovascular Pertinent negatives: hypertension ; CAD ; PA ; CABG ; valvular heart disease; atrial fibrillation; pacemaker/ICD; DVT/PE; negative for CHF; drug-eluting stent(s) and bare metal stent(s) Respiratory Pertinent negatives: COPD; sleep apnea (LEÓN); pulmonary hypertension; no O2 use outside the hospital and non-smoker Hepatic / Heme Pertinent negatives: liver disease and history of anemia Gastrointestinal Pertinent negatives: GERD Renal / + Renal disease (CrCl 31) - ARF / CKD Pertinent negatives: dialysis and nephrolithiasis Musculoskeletal/Pain + Osteoarthritis Pertinent negatives: chronic pain; previous treatment for opioid use disorder and headaches Endocrine / Other + Diabetes mellitus (uses Dexcom) - Diabetes type 2. Outpatient insulin use: current. Pt reported HgA1c: 5.4. Pt reported HgA1c date: 07/2022. + Thyroid disease - hypothyroidism + Obesity (BMI >30) + Eye disorder - glaucoma. Pertinent negatives: cancer history; rheumatological disease; transplanted organ; infectious disease and pancreatitis Functional Capacity Functional capacity: <4 METs Functional capacity limited by a non-cardiovascular, non-pulmonary condition. Comments: Pt reports mobility is limited 2/2 knee pain, denies ROSE or CP with activity. Review of Systems Pertinent negatives: productive cough; SOB; recent cold/flu; fever; chest pain; palpitations; PND; previous transfusion; easy bruising; bleeding problems; syncope; dizziness; muscle weakness; chronicpain; numbness/tingling; hard of hearing; vision loss (glasses ); heartburn; nausea; diarrhea; dentures/partials; chipped/loose teeth and abdominal painOrthopnea: sleeps with 1 pillow underheader. PAT Summary and Plans Cardiac risk classification of planned procedure: low cardiac risk. Preoperative assessment status: complete. Additional comments: Isabelle Lutz is a 72 y.o. female who is being evaluated prior to undergoinga low cardiac risk surgery. Revised Cardiac Risk Index factors are (insulin therapy for diabetes) for a total RCRI of 1 out of 6. Functional capacity is 4-6 METs. Obstructive sleep apnea (LEÓN) screening status is 3-4 to Be assessed by primary surgical team on DOS The patient is at elevated risk for obstructive sleep apnea (LEÓN) per [facility] screening questionnaire results. Patient informed of the possibility that they have undiagnosed LEÓN, which may increasetheir risk for perioperative respiratory events. Patient also informed of the possible long-term health problems associated with LEÓN. Because we do not feel that preoperative LEÓN testing is likely tooutweigh the downsides of delaying surgery, we have recommended that the patient talk to their primary doctor or other clinician after surgery about getting tested for LEÓN. This assessment was performed via telephone. Therefore the physical exam has been deferred to the day of surgery team. The patient was provided with preoperative instructions for their medications. Patient instructions were provided by telephone and electronically sent via [employer]. Patient verbalized understanding of preoperative plan. Blood bank needs for day of procedure: No type and screen needed Pending labs/tests include: POC Glucose The patient is on aspirin therapy for primary prevention. The bleeding risk for the planned procedure is insignificant and therefore aspirin can be continued throughout the periprocedural period. Please call the CPAP chart room clinician ([phone]) with any questions. TPAP complete Preoperative evaluation performed by Marisol Mars NP on 08/03/22 at 2:34 PM. Patient Active Problem List Diagnosis ??? Actinic keratosis ??? Type 2 diabetes mellitus (HCC) ??? Hyperlipidemia ??? Hypertension ??? Hypothyroidism ??? Knee pain ??? Obesity ??? Osteoarthritis of knee ??? Trigger finger of left thumb ??? Primary open angle glaucoma (POAG) of both eyes, moderate stage ??? Nuclear sclerotic cataract of both eyes ??? Clavicle enlargement ??? Vitamin D deficiency ??? Benign essential hypertension ??? Chronic kidney disease (CKD) stage G3b/A1, moderately decreased glomerular filtration rate (GFR) between 30-44 mL/min/1.73 square meter and albuminuria creatinine ratio less than 30 mg/g (HCC) Past Medical History: Diagnosis Date ??? Cataract ??? Diabetes mellitus (HCC) ??? Diabetic retinopathy (CMS/HCC) (HCC) ??? Glaucoma ??? Multiparity History Of ___ Previous Pregnancies - 7 pregnancies, 2 children - C-sections. (Added by TW Conv) ??? Nonproliferative diabetic retinopathy (CMS/HCC) ([facility]) 11/03/2009 ??? Personal history of other specified conditions History of chest pain - Stress test negative on 08/01/06 (Added by TW Conv) Past Surgical History: Procedure Laterality Date ??? CATARACT EXTRACTION Right 06/14/2022 CE/IOL + goniotomy ??? NH APPENDECTOMY unkown dates per pt ??? NH DELIVERY ONLY Section - in 1972 and 1975 (Added by TW Conv) ??? NH TENDON SHEATH INCISION Hand Incision Tendon Sheath Of A Finger - right hand, III finger, 08/20 (Added by TW Conv) OB History No obstetric history on file. Allergies Allergen Reactions ??? Pseudoephedrine Palpitations ??? Valacyclovir Other (See comments) put me in renal failure Med List Status: Nurse Complete Set By: Kathy Soliman RN at 08/03/2022 11:11 AM Taking? Last Dose Start Date End Date Provider acetaminophen (TYLENOL) 325 mg tablet Past Week -- -- Provider, MD Aldair aspirin 81 mg enteric coated tablet 08/03/2022 -- -- Aldair Prescott MD atorvastatin (LIPITOR) 20 mg tablet 08/03/2022 12/14/21 -- Merna Bell MD TAKE 1 TABLET DAILY Patient taking differently: Take 20 mg by mouth every morning blood glucose diagnostic (glucose blood) strip -- 10/16/18 -- Merna Bell MD Testing once daily brimonidine-timoloL (Combigan) 0.2-0.5 % ophthalmic solution 08/03/2022 06/08/20 -- Makayla Ramos MD Administer 1 drop into both eyes 2 (two) times a day Patient taking differently: Administer 1 drop into the left eye 2 (two) times a day Notes: 90 day supply [place] celecoxib (CeleBREX) 200 mg capsule 08/03/2022 09/19/21 -- Merna Bell MD TAKE 1 CAPSULE DAILY. Patient taking differently: Take 200 mg by mouth 2 (two) times a day ergocalciferol (VITAMIN D) 50,000 unit capsule Past Week 07/28/22 -- Merna Bell MD TAKE 1 CAPSULE BY MOUTH ONCE WEEKLY Patient taking differently: Take 50,000 Units by mouth once a week TAKE 1 CAPSULE BY MOUTH ONCE WEEKLY Wednesdays HUMALOG KWIKPEN INSULIN 100 unit/mL insulin pen 08/03/2022 04/27/19 -- Merna Bell MD INJECT 10 UNITS SUBCUTANEOUSLY AT BREAKFAST, 8 TO 12 UNITS AT LUNCH, AND 5 UNITS WITH SNACKS Patient taking differently: Inject 10 Units under the skin daily before breakfast insulin glargine (BASAGLAR) 100 unit/mL (3 mL) pen for injection 08/03/2022 06/22/22 09/20/22 Merna Bell MD Inject 40 Units under the skin daily Patient taking differently: Inject 42 Units under the skin daily before breakfast insulin lispro (HumaLOG, ADMELOG) 100 unit/mL vial for injection 08/02/2022 -- -- Aldair Prescott MD insulin lispro (HumaLOG, ADMELOG) 100 unit/mL vial for injection 08/02/2022 -- -- Provider, MD Aldair Jardiance 10 mg tablet 08/03/2022 12/14/21 -- Merna Bell MD TAKE 1 TABLET DAILY Patient taking differently: Take 10 mg by mouth every morning latanoprost (XALATAN) 0.005 % ophthalmic solution 08/02/2022 11/02/21 -- Makayla Ramos MD INSTILL 1 DROP INTO BOTH EYES NIGHTLY Patient taking differently: Administer 1 drop into both eyes nightly Notes: DX Code Needed / H40.1132 / 90 day supply is OK if authorized by insurance and patient prefers. / Please advise patient she needs to schedule a follow up for further refills. Thank you. levothyroxine (SYNTHROID) 88 mcg tablet 08/03/2022 04/20/22 -- Merna Bell MD Take 1 tablet (88 mcg total) by mouth daily Patient taking differently: Take 88 mcg by mouth medical art therapist before breakfast metFORMIN (GLUCOPHAGE) 500 mg tablet 08/03/2022 03/07/21 -- Merna Bell MD TAKE 1 TABLET BY MOUTH TWICE A DAY Patient taking differently: Take 500 mg by mouth daily with breakfast olmesartan-hydrochlorothiazide (BENICAR HCT) 40-12.5 mg per tablet 08/03/2022 07/20/22 -- Merna Bell MD TAKE 1 TABLET BY MOUTH EVERY DAY Patient taking differently: Take 1 tablet by mouth daily before breakfast Ozempic 1 mg/dose (4 mg/3 mL) pen injector injection Past Week 12/14/21 -- Merna Bell MD INJECT 1MG SUBCUTANEOUSLY ONCE A WEEK. Patient taking differently: Inject 1 mg under the skin pen needle, diabetic (BD ULTRA-FINE WENDY PEN NEEDLE) 32 gauge x 5/32 needle -- 06/16/18 -- Merna Bell MD Use 4X daily -- -- -- No current facility-administered medications for this encounter. Current Outpatient Medications: ??? acetaminophen (TYLENOL) 325 mg tablet ??? aspirin 81 mg enteric coated tablet ??? atorvastatin (LIPITOR) 20 mg tablet ??? brimonidine-timoloL (Combigan) 0.2-0.5 % ophthalmic solution ??? celecoxib (CeleBREX) 200 mg capsule ??? ergocalciferol (VITAMIN D) 50,000 unit capsule ??? HUMALOG KWIKPEN INSULIN 100 unit/mL insulin pen ??? insulin glargine (BASAGLAR) 100 unit/mL (3 mL) pen for injection ??? insulin lispro (HumaLOG, ADMELOG) 100 unit/mL vial for injection ??? insulin lispro (HumaLOG, ADMELOG) 100 unit/mL vial for injection ??? Jardiance 10 mg tablet ??? latanoprost (XALATAN) 0.005 % ophthalmic solution ??? levothyroxine (SYNTHROID) 88 mcg tablet ??? metFORMIN (GLUCOPHAGE) 500 mg tablet ??? olmesartan-hydrochlorothiazide (BENICAR HCT) 40-12.5 mg per tablet ??? Ozempic 1 mg/dose (4 mg/3 mL) pen injector injection ??? blood glucose diagnostic (glucose blood) strip ??? pen needle, diabetic (BD ULTRA-FINE WENDY PEN NEEDLE) 32 gauge x 5/32 needle Social History Tobacco Use Smoking Status Never Smokeless Tobacco Never Alcohol Use: Not At Risk ??? Frequency of Alcohol Consumption: Never ??? Average Number of Drinks: Patient does not drink ??? Frequency of Binge Drinking: Never Substance and Sexual Activity Drug Use Never Family History Problem Relation Age of Onset ??? Heart disease Other Heart Disease - mother (Added by TW Conv) ??? Hypertension Other Hypertension - mother (Added by TW Conv) ??? Thyroid disease Other Thyroid Disorder - mother (Added by TW Conv) ??? Diabetes type II Other Type II Diabetes Mellitus - mother (Added by TW Conv) ??? Anesthesia problems Neg Hx There were no vitals filed for this visit. PT: No results found for requested labs within last 720 hours. INR: No results found for requested labs within last 720 hours. APTT: No results found for requested labs within last 720 hours. Hgb A1C: No results found for requested labs within last 720 hours. CBC RBC: No results found for requested labs within last 720 hours. RDW: No results found for requested labs within last 720 hours. MCHC: No results found for requested labs within last 720 hours. MCH: No results found for requested labs within last 720 hours. MCV: No results found for requested labs within last 720 hours. Hct: No results found for requested labs within last 720 hours. Hgb: No results found for requested labs within last 720 hours. WBC: No results found for requested labs within last 720 hours. MPV: No results found for requested labs within last 720 hours. Platelets: No results found for requested labs within last 720 hours. RDW CV: No results found for requested labs within last 720 hours. RDW Sd: No results found for requested labs within last 720 hours. BMP Glucose: No results found for requested labs within last 720 hours. Calcium: No results found for requested labs within last 720 hours. Sodium: No results found for requested labs within last 720 hours. Potassium: No results found for requested labs within last 720 hours. CO2: No results found for requested labs within last 720 hours. Chloride: No results found for requested labs within last 720 hours. BUN: No results found for requested labs within last 720 hours. Creatinine: No results found for requested labs within last 720 hours. Kathrin index score: 100 documented in this encounter Miscellaneous Notes * Op Note - Makayla Ramos MD - 08/16/2022 9:00 AM CDT DATE: 08/16/2022 PREOPERATIVE DIAGNOSIS: 1) Primary open angle glaucoma left eye. 2) Visually significant nuclear sclerotic cataract of left eye. POSTOPERATIVE DIAGNOSIS: same OPERATION PERFORMED: Phacoemulsification with intraocular lens implant and ab interno goniotomy left eye. SURGEON: Makayla Ramos MD PARTS AND SERVICE MANAGER: Swapna Head MD Implants: Implant Name Type Inv. Item Serial No. Merchandiser Seasonal Lot No. LRB No. Used Action [employer] LENS IOL POSTERIOR BICONVEX OPTIC SINGLE PIECE ENVISTA 6.0X12.5 +18.0D HYDROPHOBIC ACRYLIC [id number] - [id number] - [id number] Lens [employer] Lens Iol Posterior Biconvex Optic Single Piece Envista 6.0x12.5 +18.0d Hydrophobic Acrylic [id number] [employer] [id number] Left 1 Implanted ANESTHESIA: MAC with Local INDICATIONS FOR PROCEDURE: The patient complained of blurred vision causing difficulty with the activities of daily living. The Goniotomy was performed to help reduce the intraocular pressure (IOP) and/or glaucoma medications. DESCRIPTION OF PROCEDURE: The operative eye was marked, pre-operative drop administered and the patient was brought into the Operating Room, where tetracaine drops were instilled into the eye to be operated on.In the Operating Room, mild analgesia and sedation were obtained, and the patient was prepped and draped in the usual sterile fashion. A lid speculum was used to retract the eyelids. A sideportblade was used to makethe sideport incision followed by injection of intracameral lidocaine followed by Viscoat into the anterior chamber. A 2.4mm keratome was used to create the temporal main incision in a triplanar fashion. The patient???s head was turned away from the surgeon at angle of 35 degrees from midline, in preparation for the goniotomy. The operating scope was also rotated 35 degrees to allow for proper angle visualization. Viscoat was placed on the cornea and a Chen-Mega???s gonioprism placed on the eye. Healon was used to inflate the anterior chamber in the nasal anterior chamber angle. The [place] DualBlade was then introduced into the anterior chamber, the trabecular meshwork was identified and thedevice was inserted into Schlemm???s canal in the nasal aspect of the anterior chamber angle. The cutting portion of the needle was advanced into the angle and the trabecular meshwork was removedfor 100 degrees. Attention was then turned to the cataract portion of the surgery: The patient???s head and the scope was brought back to primary position. The capsulorrhexis was initiated and completed using a pair of Vargas forceps, followed by hydrodissection with balanced salt solution on a [place] cannula. Phacoemulsification was then performed using a divide and conquer technique. Residual cortical lens material was aspirated using the irrigation and aspiration handpiece, and Provisc was used to re-inflate the anterior chamber and capsular bag. The intraocular lens was implanted within the capsular bag using a plunger-based injector system and wound assisted intraocular lens insertion. The intraocular lens (IOL) was positioned well into the capsular bag. Position was checked using a Kuglen hook to retract iris if the pupil was small. The irrigation and aspiration handpiece was used to remove the visco elastic from the anterior chamber and capsular bag, and behind the intraocular lens, and the woundswere hydrated to ensure a watertight seal. Intracameral cefuroxime was instilled into the AC. The eyelid speculum and surgical drapes were removed and antibiotic ointment was placed in the operative eye. The patient???s eye was shielded. The patient was transferred to the Recovery Room in stable condition, and tolerated the procedure well. SPECIMENS REMOVED:none ESTIMATED BLOOD LOSS:minimal INTRAOPERATIVE FLUIDS:Per anesthesia SPONGE/INSTRUMENT/NEEDLE COUNTS:correct COMPLICATIONS: None CONDITION ON DISCHARGE FROM OPERATING ROOM:stable * Perioperative Nursing Note - Yisel Green RN - 08/16/2022 8:52 AM CDT Patient belongings under stretcher. Intraocular lens implant ordered and verified per surgeon prior to implantation * Pre-Procedure Instructions - Marisol Mars NP - 08/03/2022 2:17 PM CDT [facility] Location: [facility] The night before your surgery: * Do not eat anything after midnight the night before your procedure. and * Do not smoke or use tobacco products after midnight the night before surgery. It is best to stop smoking now to improve your health. The morning of your surgery: * You may have clear liquids on your surgery day. You must stop drinking two hours before you arrive to the surgery facility. Acceptable clear liquids include water, clear sports drinks, black coffee, or clear soda. DO NOT drink any [...] valuables at home or with your family. Outpatient Surgery: * You must have a responsible adult drive you home and stay with you for 24 hours after your surgery * You cannot be alone at home or in a hotel * Please call your surgeon's office if you do not have someone to drive you home and/or stay with you after surgery * Please bring any items you may need to spend the night in the hospital. Sometimes patients need to be cared for in the hospital overnight. If you have Diabetes: * If your blood sugar is low before you come to the hospital, drink a small amount of sugar water or clear juice like apple or cranberry juice. DO NOT drink orange or pineapple juice. These are not clear liquids. * Please call your surgeon and/or the CPAP Clinic if you have any questions. Instructions For Your Medications: Pre-Surgery Instructions: Medication Instructions acetaminophen (TYLENOL) 325 mg tablet Take on day of surgery if needed aspirin 81 mg enteric coated tablet Take morning of surgery atorvastatin (LIPITOR) 20 mg tablet Take morning of surgery brimonidine-timoloL (Combigan) 0.2-0.5 % ophthalmic solution Follow surgeon's instructions celecoxib (CeleBREX) 200 mg capsule Stop taking 5 days prior to surgery ergocalciferol (VITAMIN D) 50,000 unit capsule Don't take on day of surgery HUMALOG KWIKPEN INSULIN 100 unit/mL insulin pen Don't take on day of surgery insulin glargine (BASAGLAR) 100 unit/mL (3 mL) pen for injection Only take 31 units the morning of surgery. insulin lispro (HumaLOG, ADMELOG) 100 unit/mL vial for injection Hold all scheduled doses with meals; Use correction insulin scale if blood sugar is high insulin lispro (HumaLOG, ADMELOG) 100 unit/mL vial for injection Jardiance 10 mg tablet Don't take on day of surgery latanoprost (XALATAN) 0.005 % ophthalmic solution Follow surgeon's instructions levothyroxine (SYNTHROID) 88 mcg tablet Take morning of surgery metFORMIN (GLUCOPHAGE) 500 mg tablet Don't take on day of surgery olmesartan-hydrochlorothiazide (BENICAR HCT) 40-12.5 mg per tablet Take morning of surgery Ozempic 1 mg/dose (4 mg/3 mL) pen injector injection Don't take on day of surgery blood glucose diagnostic (glucose blood) strip pen needle, diabetic (BD ULTRA-FINE WENDY PEN NEEDLE) 32 gauge x 5/32 needle General Instructions For Medications: * Stop all [...] E, Herbal medicines, Diet Pills If you have pain, you may take [...] You have started taking any new medications You have questions about a bowel prep or special diet before surgery You have symptoms of COVID-19 such as a new or worsening cough, shortness of breath, fever, body aches, loss of taste or smell, diarrhea or vomiting, or sore throat. You have a household contact with COVID-19. You test positive for COVID-19. 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 CIRCUMFERENCE: Social History Tobacco Use Smoking Status Never [...] Outpatient Medications Marked as Taking for the 08/16/22 encounter (Hospital Encounter) Medication Sig Dispense Refill acetaminophen (TYLENOL) 325 mg tablet Take 650 mg by mouth every 6 (six) hours as needed for pain aspirin 81 mg enteric coated tablet Take 81 mg by mouth daily before breakfast atorvastatin (LIPITOR) 20 mg tablet TAKE 1 TABLET DAILY (Patient taking differently: Take 20 mg by mouth every morning) 90 tablet 3 brimonidine-timoloL (Combigan) 0.2-0.5 % ophthalmic solution Administer 1 drop into both eyes 2 (two) times a day (Patient taking differently: Administer 1 drop into the left eye 2 (two) times a day)10 mL 11 celecoxib (CeleBREX) 200 mg capsule TAKE 1 CAPSULE DAILY. (Patient taking differently: Take 200 mg by mouth 2 (two) times a day) 90 capsule 3 ergocalciferol (VITAMIN D) 50,000 unit capsule TAKE 1 CAPSULE BY MOUTH ONCE WEEKLY (Patient taking differently: Take 50,000 Units by mouth once a week TAKE 1 CAPSULE BY MOUTH ONCE WEEKLY Wednesdays) 12 capsule 0 HUMALOG KWIKPEN INSULIN 100 unit/mL insulin pen INJECT 10 UNITS SUBCUTANEOUSLY AT BREAKFAST, 8 TO 12 UNITS AT LUNCH, AND 5 UNITS WITH SNACKS (Patient taking differently: Inject 10 Units under the skin daily before breakfast) 45 mL 3 insulin glargine (BASAGLAR) 100 unit/mL (3 mL) pen for injection Inject 40 Units under the skin daily (Patient taking differently: Inject 42 Units under the skin daily before breakfast) 45 mL 0 insulin lispro (HumaLOG, ADMELOG) 100 unit/mL vial for injection Inject 8-12 Units under the skin daily with lunch insulin lispro (HumaLOG, ADMELOG) 100 unit/mL vial for injection Inject 5 Units under the skin daily as needed for high blood sugar (With snacks) Jardiance 10 mg tablet TAKE 1 TABLET DAILY (Patient taking differently: Take 10 mg by mouth every morning) 90 tablet 3 latanoprost (XALATAN) 0.005 % ophthalmic solution INSTILL 1 DROP INTO BOTH EYES NIGHTLY (Patient taking differently: Administer 1 drop into both eyes nightly) 7.5 mL 1 levothyroxine (SYNTHROID) 88 mcg tablet Take 1 tablet (88 mcg total) by mouth daily (Patient takingdifferently: Take 88 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 (Patient taking differently: Inject 1 mg under the skin) 9 mL 3 Implants Lens Adylitica Lens Iol Posterior Biconvex Optic Single Piece Envista 6.0x12.5 +18.0d Hydrophobic Acrylic [id number] - [id number] - [id number] - Implanted (Right) Lens Inventory item: [employer] Lens Iol Posterior Biconvex Optic Single Piece Envista 6.0x12.5 +18.0d Hydrophobic Acrylic [id number] Model/Cat number: [id number] Serial number: [id number] Merchandiser Seasonal: Adylitica Device identifier: [id number] Device identifier type: GS1 As of 06/14/2022 Status: Implanted SKIN Piercings Remaining: No Wound (LDAs) Type of Wound (LDA): (none) SCREENINGS Kathrin index score: 100 NUTRITION PATIENT CARE PLANNING Advance Directives (For Healthcare) Have you reviewed your Advance Directive and is it valid for this stay?: Not applicable Advance Directive: Patient does not have advance directive, Patient would like information, Information provided Information Provided on Healthcare Directives: Yes Communication/Measurer Needs Communication Needs: Glasses Does caregiver's language differ from patient's?: No Assistive Devices/DME: Eyeglasses Discharge Planning Type of Residence: Private residence Living Arrangements: Family members Support Systems: Family members Assistance Needed: Daughter to provide discharge transportation Patient expects to be discharged to:: Private residence [employer] NO ADDITIONAL COMMENTS/ FOLLOW UP * Pre-Procedure Instructions - Kathy Soliman RN - 08/03/2022 11:14 AM CDT [facility] ([facility]) PRE-SURGICAL NURSING INSTRUCTIONS Telephone Assessment General Information Discussed with Patient: Surgery location provided to patient. Arrival time and surgical time will be provided to the patient by their surgeon. You should wear clothing that is clean, loose, comfortable and easy to get in and out of on the dayof surgery. You should remove nail coverings, artificial nails and nail angolan prior to the day of surgery. You should leave your valuables and any jewelry at home. No metal or piercings are allowed in the operating room. You should bring your insurance card, a photo ID (example: Tennis Professional's License) and a method of payment for [...] copy is already in your Epic Chart. If you are having surgery at [facility], please arrive on the day of surgery with the name and phone number of your local 24 hour pharmacy. Due to evening discharges, your routine pharmacy may be closed. In order to obtain your prescriptions that evening, your surgeon may need to send prescriptions to this pharmacy or have you take prescriptions to this pharmacy when you are discharged. Without this information, you may not be able to obtain your prescriptions that evening. Eye Surgery Process for Patients: Before the surgery, you will be asked to change into a gown. As you get ready for your surgery, your nurse will ask you questions about your medical history andreview your medications with you. An IV will be placed so that we may administer medication to keep you comfortable. You will meet your surgical team. You will be taken by stretcher to the operating room for your surgery. After your surgery, you will come to the recovery area. A Fall Risk band will be placed on your arm to remind you that you are at higher risk for falling after having eye surgery. You may remove this band after 24 hours. Before you leave, your discharge team will review your medications with you and any special instructions. A Guide for Patients Having Surgery: Your Pathway to Excellent Care OUR GOAL IS TO PROVIDE YOU WITH EXCELLENT CARE Use this guide to learn about what you can do before, during and after surgery to help your recovery. You are the most important person on your health care team. By becoming informed and involved, you can contribute to the success of your surgery. If your surgeon's directions are different than those in this guide, talk with your nurse or surgeon to confirm the information. It is important that you understand how to take care of yourself at home after surgery. Be sure to bring this guide with you on the day of surgery and take it home with you after surgery. Write down questions for your nurse or surgeon on the last page of this booklet. Important pages to be reviewed BEFORE surgery: Page 1: QR codes for Surgery Center maps Page 3: Types of Anesthesia Page 5: Tips for the day & night before surgery Page 6: When to stop eating BEFORE surgery and examples of clear liquids Page 7-10: Preventing Infection: Chlorhexidine Gluconate (CHG) Bathing Instructions You may access A Guide for Patients Having Surgery: Your Pathway to Excellent Care by the followinglink: [email or web address] How To Prepare Your Skin For Surgery Below is the Pre-Surgical Bathing Protocol you should follow for your surgery. If your surgeon provides you different bathing instructions, please follow your surgeon's orders. Normal Bathing: Bathe with regular soap the night before and/or day of surgery. Normal Bathing Protocol Bathe with your normal soap the night before and/or the morning of surgery. Wear clean clothes or pajamas to sleep in. After showering DO NOT put on deodorant, hair products, conditioners, lotions, creams, powders, Vaseline or any non-essential products. Remove nail coverings, artificial nails and nail angolan. Place clean linens on your bed the night before surgery. Shaving: You may shave your face, legs and underarms during your evening shower. Avoid shaving on the day of surgery. Travel/Exposure Screening: Travel Screening Have you traveled outside the [place] in the last 6 months?: No Exposure Screening Have you been exposed to anyone who is sick in the last 30 days?: No Have you been exposed to or tested positive for COVID-19 within the last 10 days?: No Have you tested positive for monkeypox within the last 28 days or are you waiting for a monkeypox test result?: No Infectious Disease Screening Are you having any of the following:: None As of 03/06/2022 any COVID TESTING required for surgery will be set up by your surgeon's office. Please reach out to your surgeon's office if you develop any COVID symptoms, test positive for COVID or are exposed to a COVID positive person. If you have questions, please call the CPAP Staff at [phone], Saturday-Saturday 8am-4:30pm. All patients should read the below section: All visitors/patients are being asked to wear a clean face mask when entering the hospital. COVID 19 Updates & Visitor Policy: Please access [email or web address] for the most updated information. Information on [facility]: Please view [email or web address] (Patient & Visitor Information) for additional details regarding Advanced Directive forms, AWARE, directions, parking information, lodging, Internet access, dining and more. Information on [facility] or [facility] ([facility]): Please view [email or web address] (Patient and Visitor Information) for parking/directions and more. For MyChart information, to activate account or password recovery, please go to [email or web address] or call [phone] (toll-free: [phone]). Information for Suicide Prevention: National Suicide Prevention Lifeline (8-290- 605-HYFF (7299)). Surgery Times: For patients having surgery @ [facility], [facility] or [facility] ([facility]), if your surgeon's office has not notified you of your surgery time by NOON THE BUSINESS DAY BEFORE your surgery, please call [phone] and ask for your surgeon's office . documented in this encounter Plan of Treatment Not on file documented as of this encounter Procedures Procedure Name Priority Date/Time Associated Diagnosis Comments POCT GLUCOSE DEVICE Routine 08/16/2022 9 :14 AM CDT GONIOTOMY 08/16/2022 8:41 AM CDT Primary open angle glaucoma (POAG) of both eyes, moderate stage Nuclear sclerotic cataract of left eye EXTRACTION CATARACT - PHACOEMULSIFICATION AND LENS IMPLANT 08/16/2022 8:41 AM CDT Primary open angle glaucoma (POAG) of both eyes, moderate stage Nuclear sclerotic cataract of left eye POCT GLUCOSE DEVICE Routine 08/16/2022 8 :07 AM CDT documented in this encounter Results * POCT glucose (08/16/2022 9:14 AM CDT) Glucose, POC 75 70 - 199 mg/dL [facility] Blood 08/16/2022 9:14 AM CDT 08/16/2022 9:14 AM CDT Makayla Ramos MD LAB POCT ORDERABLES - DEVICE Final Result Performing Organization Address City/[facility]/ZIP Co de Phone Number [facility] Department [place] [address] * POCT glucose (08/16/2022 8:07 AM CDT) Glucose, POC 82 70 - 199 mg/dL [facility] Blood 08/16/2022 8:07 AM CDT 08/16/2022 8:07 AM CDT Makayla Ramos MD LAB POCT ORDERABLES - DEVICE Final Result [facility] Department [place] [address] documented in this encounter Visit Diagnoses Diagnosis Primary open angle glaucoma (POAG) of both eyes, moderate stage Nuclear sclerotic cataract of both eyes Senile nuclear sclerosis Primary open angle glaucoma (POAG) of both eyes, moderate stage Nuclear sclerotic cataract of left eye Senile nuclear sclerosis documented in this encounter Admitting Diagnoses Diagnosis Primary open angle glaucoma (POAG) of both eyes, moderate stage Nuclear sclerotic cataract of both eyes Senile nuclear sclerosis documented in this encounter Administered Medications Inactive Administered Medications - up to 3 most recent administrations Medication Order MAR Action Action Date Dose Rate Site balanced salt soln no.2 irrig. (BSS) intraocular solution As needed, Starting on Sat08/16/22 at 0850, Intra-Op Given 08/16/2022 8:50 AM CDT 15 mL Left Eye BSS-EPINEPHrine 0.3 mg preservative free intraocular solution (total volume 500 mL) As needed, Starting on Sat08/16/22 at 0850, Intra-Op Given 08/16/2022 8:50 AM CDT 500 mL cefuroxime (ZINACEF) 20 mg/2 mL in sodium chloride 0.9% intracameral (premix) As needed, Starting on Sat08/16/22 at 0850, Intra-Op Given 08/16/2022 8:50 AM CDT 0.1 mL dilating cocktail ophthalmic solution 0.3 mL 0.3 mL, left eye, Every 15 min, First dose on Dilma 08/16/22 at 0745, For 2 doses, Pre-Op, After each dose, have patient close eye and secure with paper tape. Ingredients per 0.3 mL Lidocaine 2% jelly 0.214 mL Phenylephrine 10% ophth drops 0.021 mL Cyclopentolate 1% ophth drops 0.021 mL Tropicamide 1% ophth drops 0.021 mL Ketorolac 0.5% ophth drops 0.021 mL, Indications: Mydriasis During Ocular SurgeryIndications:Mydriasis During Ocular Surgery Given 08/16/2022 7:55 AM CDT 0.3 mL Given 08/16/2022 7:42 AM CDT 0.3 mL Lactated Ringer's (LR) infusion 30 mL/hr, intravenous, Continuous, Starting on Dilma 4/6/23 at 0745, Pre-Op Restarted 08/16/2022 8:36 AM CDT New Bag 08/16/2022 7:43 AM CDT 30 mL/hr 30 mL/hr lidocaine PF (XYLOCAINE) 10 mg/mL (1 %) preservative free injection As needed, Starting on Dilma 08/16/22 at 0850, Intra-Op Given 08/16/2022 8:50 AM CDT 0.3 mL neomycin-polymyxin B-dexAMETHasone (MAXITROL) ophthalmic ointment As needed, Starting on Dilma 08/16/22 at 0851, Intra-Op Given 08/16/2022 8:51 AM CDT 1 application (deactivated) tetracaine (PF) (ALTACAINE) 0.5 % ophthalmic solution As needed, Starting on Dilma 08/16/22 at 0851, Intra-Op, Indications: Administration of Corneal AnesthesiaIndications:Administ ration of Corneal Anesthesia Given 08/16/2022 8:51 AM CDT 2 drops documented in this encounter Discontinued Medications Medication Sig Discontinue Reason Start Date End Da te prednisoLONE acetate (PRED FORTE) 1 % ophthalmic suspension Administer 1 drop into the right eye 4 (four) times a day 4 times daily (when you wake up, lunch, dinner, bedtime). To decrease inflammation. Error 06/14/2022 08/03/2022 moxifloxacin (VIGAMOX) 0.5 % ophthalmic solution Administer 1 drop into the right eye 4 (four) times a day Error 06/14/2022 08/03/2022 CALCIUM ORALIndications:supple ment Take 2 tablets by mouth every morning Error 08/03/2022 documented as of this encounter Historical Medications * This list may reflect changes made after this encounter. acetaminophen ER (TYLENOL) 650 mg 8 hr tabletIndications :Pain Take 1 tablet (650 mg total) by mouth every 6 (six) hours as needed for pain insulin lispro (HumaLOG, ADMELOG) 100 unit/mL vial for injectionIndicati ons:type 2 diabetes mellitus Inject 5 Units under the skin daily as needed for high blood sugar (With snacks) 12/03/2022 insulin lispro (HumaLOG, ADMELOG) 100 unit/mL vial for injectionIndicati ons:type 2 diabetes mellitus Inject 10 Units under the skin 3 (three) times a day before meals Plus sliding scale 01/28/2024 added in this encounter Active and Recently Administered Medications Times are shown in CDT. Scheduled Medication Order 08/14/2022 08/15/2022 08/16/2022 dilating cocktail ophthalmic solution 0.3 mL (COMPLETED) 0.3 mL, left eye, Every 15 min, First dose on Dilma 08/16/22 at 0745, For 2 doses, Pre-Op, After each dose, have patient close eye and secure with paper tape. Ingredients per 0.3 mL Lidocaine 2% jelly 0.214 mL Phenylephrine 10% ophth drops 0.021 mL Cyclopentolate 1% ophth drops 0.021 mL Tropicamide 1% ophth drops 0.021 mL Ketorolac 0.5% ophth drops 0.021 mL, Indications: Mydriasis During Ocular Surgery 0742 (Given - Provid er: Denise Mcdonough RN)0755 (Given - Provider: Denise Mcdonough RN) Continuous Medication Order 08/14/2022 08/15/2022 08/16/2022 Lactated Ringer's (LR) infusion 30 mL/hr, intravenous, Continuous, Starting on Dilma 08/16/22 at 0745, Pre-Op 0743 (New Bag - Prov ider: Denise Mcdonough RN)0835 (Paused - Provider: Luis Hanson CRNA - Comment: Switch to gravity)0836 (Restarted - Provider: Luis Hanson CRNA)0905 (Stopped - Provider: Luis Hanson CRNA) PRN Medication Order 08/14/2022 08/15/2022 08/16/2022 balanced salt soln no.2 irrig. (BSS) intraocular solution (CANCELED) As needed, Starting on Dilma 08/16/22 at 0850, Intra-Op 0850 (Given - Provid er: Makayla Ramos MD) BSS-EPINEPHrine 0.3 mg preservative free intraocular solution (total volume 500 mL) (CANCELED) As needed, Starting on Dilma 08/16/22 at 0850, Intra-Op 0850 (Given - Provid er: Makayla Ramos MD) cefuroxime (ZINACEF) 20 mg/2 mL in sodium chloride 0.9% intracameral (premix) (CANCELED) As needed, Starting on Dilma 08/16/22 at 0850, Intra-Op 0850 (Given - Provid er: Makayla Ramos MD) lidocaine PF (XYLOCAINE) 10 mg/mL (1 %) preservative free injection (CANCELED) As needed, Starting on Dilma 08/16/22 at 0850, Intra-Op 0850 (Given - Provid er: Makayla Ramos MD) naloxone (NARCAN) 0.4 mg/mL injection 0.04-0.4 mg 0.04-0.4 mg, intravenous, Once as needed, other, excessive sedation/respiratory depression, Starting on Dilma 08/16/22 at 0908, For 1 dose, Phase I, Dilute 0.4 mg with 9 mL NS (final concentration 0.04 mg/mL). For respiratory depression (respiratory rate less than 6), administer 0.4 mg IVP over 30 seconds. For excessive sedation administer 0.04 mg (1 mL) every 1 minute until desired level of alertness. For IV, administer over 30 seconds., Indications: Opioid Toxicity neomycin-polymyxin B-dexAMETHasone (MAXITROL) ophthalmic ointment (CANCELED) As needed, Starting on Dilma 08/16/22 at 0851, Intra-Op 0851 (Given - Provid er: Makayla Ramos MD) ondansetron (ZOFRAN) injection 4 mg 4 mg, intravenous, Administer over 2 Minutes, Once as needed, nausea, vomiting, Starting on Dilma 08/16/22 at 0908, For 1 dose, Phase I, Proceed to prochlorperazine if ondansetron has been given within the last 4 hours. prochlorperazine (COMPAZINE) injection 5 mg 5 mg, intravenous, Administer over 2 Minutes, Every 10 min PRN, nausea, vomiting, Starting on Dilma 08/16/22 at 0908, For 2 doses, Phase I, If nausea/vomiting not relieved by ondansetron within 30 minutes or if ondansetron has been given within the last 4 hours. tetracaine (PF) (ALTACAINE) 0.5 % ophthalmic solution (CANCELED) As needed, Starting on Dilma 08/16/22 at 0851, Intra-Op, Indications: Administration of Corneal Anesthesia 0851 (Given - Provid er: Makayla Ramos MD) documented in this encounter Orders Medications Ordered That Alan ht Not Have Been Administered Count Last Ordered Date First Ordered Date Carrier Fluids for Secondary Infusion - 0.9% Sodium Chloride 1 08/16/2022 naloxone (NARCAN) 0.4 mg/mL injection 0.04-0.4 mg 1 08/16/2022 ondansetron (ZOFRAN) injection 4 mg 1 08/16 prochlorperazine (COMPAZINE) injection 5 mg 1 08/16/2022 sodium chloride 0.9% flush 0.5-20 mL 3 10/2022 Diet Count Last Ordered Date First Orde red Date ADULT DISCHARGE DIET 1 08/16/2022 Nursing Count Last Ordered Date First Orde red Date DISCHARGE ACTIVITY 2 08/16/2022 DISCHARGE CALL PROVIDER 2 08/16/2022 Discharge Count Last Ordered Date First Orde red Date DISCHARGE PATIENT 1 08/16/2022 documented in this encounter Care Teams Managed Care Specialist Relationship Specialty Start Date End Date Elpidio Serrato MD PCP - General Internal Medicine 06/09/18 documented as of this encounter
--- OUTSIDE RECORDS SUMMARY | 2024-04-29 14:08 | XMS_ITS | Encounter Summary ---
Author Organization [facility] Healthcare Address [address] [place] [address] Care Team Providers Care Typewriter Repairer Name Role Phone Elpidio Serrato MD Primary Care Provider [phone] Reason for Visit * Auth/Cert Specialty Diagnoses / Procedures Referred By Contac t Referred To Contact Diagnoses Primary open angle glaucoma (POAG) of both eyes, moderate stage Nuclear sclerotic cataract of left eye Primary open angle glaucoma (POAG) of both eyes, moderate stage [H40.1132] Nuclear sclerotic cataract of left eye [H25.12] Procedures MD XCAPSL CTRC RMVL INSJ IO LENS PROSTH W/O ECP MD GONIOTOMY MD XCAPSL CTRC RMVL INSJ IO LENS PROSTH CPLX WO ECP EXTRACTION CATARACT - PHACOEMULSIFICATION AND LENS IMPLANT GONIOTOMY Referral ID Status Reason Start Date Expiration Date Visits Re quested Visits Authorized [id number] 1 1 Encounter Details Date Type Department Care Team (Latest Contact Info) Description 08/16/2022 6:50 AM CDT - 08/16/2022 10:05 AM CDT Hospital Encounter [facility] [address] [place] [address] Makayla Ramos MD [facility] [place] [address] Discharge Disposition: Discharge to home or self [...] on file Legal Sex Female 3:59 AM ORACLE FINANCIAL APPLICATION DEVELOPER Gender Identity Female 05/13/2021 4:21 PM ORACLE FINANCIAL APPLICATION DEVELOPER Sexual Orientation Not on file documented as [...] your vision Whom to call with concerns: [phone] - [facility] or [phone] - [facility] If after hours, listen to the voicemail for instructions for contacting the Eye Doctor facilities operations technician. Thank you for entrusting us with your eye care. * Attachments The following attachments cannot be sent through Care Everywhere. * [facility] PATHWAY TO EXCELLENT CARE AFTER SURGERY documented [...] Preoperative Evaluation Record Evaluation type/location: TPAP from [facility] Planned procedure site: [facility] CAM OR (Pod 4) Date: 08/03/22 NOTE: [...] Cardiovascular Pertinent negatives: hypertension ; CAD ; [place] ; CABG ; valvular heart disease; atrial [...] provided by telephone and electronically sent via [employer]. Patient verbalized understanding of preoperative plan. Blood bank needs for day of procedure: No type and screen needed Pending labs/tests include: POC Glucose The patient is on aspirin therapy for primary prevention. The bleeding risk for the planned procedure is insignificant and therefore aspirin can be continued throughout the periprocedural period. Please call the CPAP chart room clinician ([phone]) with any questions. TPAP complete Preoperative evaluation [...] Diabetes mellitus (HCC) ??? Diabetic retinopathy (CMS/HCC) ([facility]) ??? Glaucoma ??? Multiparity History Of ___ Previous Pregnancies - 7 pregnancies, 2 children - C-sections. (Added by [facility]) ??? Nonproliferative diabetic retinopathy (CMS/HCC) ([facility]) 11/03/2009 ??? Personal history of other specified conditions History of chest pain - Stress test negative on 08/01/06 (Added by [facility]) Past Surgical History: Procedure Laterality Date ??? CATARACT EXTRACTION Right 06/14/2022 CE/IOL + goniotomy ??? MD APPENDECTOMY unkown dates per pt ??? MD DELIVERY ONLY Section - in 1972 and 1975 (Added by [facility]) ??? MD TENDON SHEATH INCISION Hand Incision Tendon [...] 325 mg tablet Past Week -- -- ProviderAldair MD aspirin 81 mg enteric coated tablet 08/03/2022 [...] unit/mL vial for injection 08/02/2022 -- -- ProviderAldair MD Jardiance 10 mg tablet 08/03/2022 12/14/21 -- Merna Bell MD TAKE 1 TABLET DAILY Patient taking differently: Take 10 mg by mouth every morning latanoprost (XALATAN) 0.005 % ophthalmic solution 08/02/2022 11/02/21 -- Makayla Ramos MD INSTILL 1 DROP INTO BOTH EYES NIGHTLY Patient taking differently: Administer 1 drop into both eyes nightly Notes: DX Code Needed / H40.113 day supply is OK if authorized by insurance and patient prefers. / Please advise patient she needs to schedule a follow up for further refills. Thank you. 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 Diabetes type II Other Type [...] goniotomy left eye. SURGEON: Makayla Ramos MD INDUSTRIAL TWISTING MACHINE OPERATOR: Swapna Head MD Implants: Implant Name Type Inv. Item Serial No. Dobie Worker Lot No. LRB No. Used Action [employer] LENS IOL POSTERIOR BICONVEX OPTIC SINGLE PIECE ENVISTA 6.0X12.5 +18.0D HYDROPHOBIC ACRYLIC [id number] - [id number] - [id number] Lens [employer] Lens Iol Posterior Biconvex Optic Single Piece Envista 6.0x12.5 +18.0d Hydrophobic Acrylic [id number] [employer] [id number] Left 1 Implanted ANESTHESIA: MAC with Local [...] Preoperative Assessment and Planning CPAP Clinic Location: [facility] The night before your surgery: [...] Planning Perioperative Nursing Note Telephone Preoperative Evaluation ([facility]) - TELEPHONE ONLY, NO PHYSICAL EXAM Date: [...] (Patient takingdifferently: Take 88 mcg by mouth asphalt machine operator before breakfast) 90 tablet 3 metFORMIN (GLUCOPHAGE) [...] the skin) 9 mL 3 Implants Lens [employer] Lens Iol Posterior Biconvex Optic Single Piece Envista 6.0x12.5 +18.0d Hydrophobic Acrylic [id number] - [id number] - [id number] - Implanted (Right) Lens Inventory item: [employer] Lens Iol Posterior Biconvex Optic Single Piece Envista 6.0x12.5 +18.0d Hydrophobic Acrylic [id number] Model/Cat number: [id number] Serial number: [id number] Dobie Worker: [employer] Device identifier: [id number] Device identifier type: GS1 As of 06/14/2022 [...] provided Information Provided on Healthcare Directives: Yes Communication/Insole Tack Puller Hand Needs Communication Needs: Glasses Does caregiver's language differ from patient's?: No Assistive Devices/DME: Eyeglasses Discharge Planning Type of Residence: Private residence Living Arrangements: Family members Support Systems: Family members Assistance Needed: Daughter to provide discharge transportation Patient expects to be discharged to:: Private residence AREA DEVELOPMENT MANAGER NO ADDITIONAL COMMENTS/ FOLLOW UP * Pre-Procedure [...] remove nail coverings, artificial nails and nail puerto rican prior to the day of surgery. You should leave your valuables and any jewelry at home. No metal or piercings are allowed in the operating room. You should bring your insurance card, a photo ID (example: Att[employer]od[employer]'s License) and a method of payment for [...] Chart. If you are having surgery at [facility], please arrive on the day of surgery [...] Remove nail coverings, artificial nails and nail puerto rican. Place clean linens on your bed the [...] questions, please call the CPAP Staff at [phone], Saturday-Saturday 8am-4:30pm. All patients should read the below section: All visitors/patients are being asked to wear a clean face mask when entering the hospital. COVID 19 Updates & Visitor Policy: Please access [email or web address] for the most updated information. Information on [facility]: Please view [email or web address] (Patient & Visitor Information) for additional details regarding Advanced Directive forms, AWARE, directions, parking information, lodging, Internet access, dining and more. Information on [facility] or [facility] [place] ([facility]): Please view [email or web address] (Patient and Visitor Information) for parking/directions and more. For MyChart information, to activate account or password recovery, please go to [email or web address] or call [phone] (toll-free: [phone]). Information for Suicide Prevention: National Suicide Prevention Lifeline (0-502- 889-FUOG (8080)). Surgery Times: For patients having surgery @ [facility], [facility] or [facility] ([facility]), if your surgeon's office has not notified you of your surgery time by NOON THE BUSINESS DAY BEFORE your surgery, please call [phone] and ask for your surgeon's office . [...] Glucose, POC 75 70 - 199 mg/dL [facility] Blood 08/16/2022 9:14 AM CDT 08/16/2022 9:14 AM CDT Makayla Ramos MD LAB POCT ORDERABLES - DEVICE Final Result Performing Organization Address [facility] Co de Phone Number [facility] [place] [address] * POCT glucose (08/16/2022 8:07 AM CDT) Glucose, POC 82 70 - 199 mg/dL [facility] Blood 08/16/2022 8:07 AM CDT 08/16/2022 8:07 AM CDT Makayla Ramos MD LAB POCT ORDERABLES - DEVICE Final Result Performing Organization Address City/[facility] Co de Phone Number [facility] [place] [address] documented in this encounter Visit Diagnoses Diagnosis [...] MAR Action Action Date Dose Rate Site dilating cocktail ophthalmic solution 0.3 mL 0.3 [...] Starting on Dilma 08/16/22 at 0745, Pre-Op Restarted 08/16/2022 8:36 AM CDT New Bag 08/16/2022 7:43 AM CDT 30 mL/hr 30 mL/hr documented in this encounter Discontinued Medications Medication [...] Count Last Ordered Date First Ordered Date balanced salt soln no.2 irri g. (BSS) intraocular solution 1 08/16/2022 BSS-EPINEPHrine 0.3 mg prese rvative free intraocular solution (total volume 500 mL) 1 08/16/2022 Carrier Fluids for Secondary Infusion - 0.9% Sodium Chloride 1 08/16/2022 cefuroxime (ZINACEF) 20 mg/2 mL in sodium chloride 0.9% intracameral (premix) 1 08/16/2022 lidocaine PF (XYLOCAINE) 10 mg/mL (1 %) preservative free injection 1 08/16/2022 naloxone (NARCAN) 0.4 mg/mL injection 0.04-0.4 mg 1 08/16/2022 neomycin-polymyxin B-dexAMET Hasone (MAXITROL) ophthalmic ointment 1 08/16/2022 ondansetron (ZOFRAN) injection 4 mg 1 08/16 prochlorperazine (COMPAZINE) injection 5 mg 1 08/16/2022 sodium chloride 0.9% flush 0.5-20 mL 3 10/2022 tetracaine (PF) (ALTACAINE) 0.5 % ophthalmic solution 1 08/16/2022 Diet Count Last Ordered Date First Orde red Date ADULT DISCHARGE DIET 1 08/16/2022 Nursing Count Last Ordered Date First Orde red Date DISCHARGE ACTIVITY 2 08/16/2022 DISCHARGE CALL PROVIDER 2 08/16/2022 Discharge Count Last Ordered Date First Orde red Date DISCHARGE PATIENT 1 08/16/2022 documented in this encounter Care Teams Typewriter Repairer Relationship Specialty Start Date End Date Elpidio Serrato MD PCP - General Internal Medicine 06/09/18 documented as of this encounter
--- OUTSIDE RECORDS SUMMARY | 2024-04-29 14:08 | XMS_ITS | Encounter Summary ---
Author Organization [facility] Address [address] [place] [address] Phone Care Team Providers Care Mortgage Coordinator Name Role Phone Elpidio Serrato MD Primary Care Provider [phone] Reason for Visit * Reason Comments Primary open angle glaucoma (POAG) of yesy th eyes, moderate s Encounter Details Date Type Department Care Team (Late st Contact Info) Description 02/11/2023 9:45 AM CDT Office Visit [facility] Ophthalmology [facility] [place] [address] Makayla Ramos MD [address] [place] [address] Primary open angle glaucoma (POAG) of both eyes, moderate stage Social History Tobacco Use Types Packs/Day Years [...] on file Legal Sex Female 3:59 AM 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 Gender Identity Female 05/13/2021 4:21 PM BATTERY ASSEMBLER PLASTIC Sexual Orientation Not on file documented as of this encounter Ordered Prescriptions Prescription Sig Dispense Quantity Refills Last Filled Start Date End Date brimonidine-timolo L (Combigan) 0.2-0.5 % ophthalmic solutionIndication s:Primary open angle glaucoma (POAG) of both eyes, moderate stage Administer 1 drop into the left eye 2 (two) times a day 15 mL 3 02/11/2023 latanoprost (XALATAN) 0.005 % ophthalmic solutionIndication s:open angle glaucoma Administer 1 drop into both eyes nightly 7.5 mL 3 02/11/2023 documented in this encounter Progress Notes * Makayla Ramos MD - 02/11/2023 9:45 AM CDT Assessment/Plan Diagnoses and all orders for this visit: Primary open angle glaucoma (POAG) of both eyes, moderate stage Assessment & Plan: POAG OU - OCT OU improved today - HVF OU stable from prior - add combigan BID OU for ease to remember - continue latanoprost QHS OU - follow 6 months with DFE, sooner for concerns Orders: - brimonidine-timoloL (Combigan) 0.2-0.5 % ophthalmic solution; Administer 1 drop into the left eye2 (two) times a day - latanoprost (XALATAN) 0.005 % ophthalmic solution; Administer 1 drop into both eyes nightly I have seen/examined the patient and I agree with the findings/plan of the Resident/Fellow documented in this encounter Miscellaneous Notes * Assessment & Plan Note - Makayla Ramos MD - 02/11/2023 10:01 AM CDT Associated Problem(s): Primary open angle glaucoma (POAG) of both eyes, moderate stage POAG OU - OCT OU improved today - HVF OU stable from prior - add combigan BID OU for ease to remember - continue latanoprost QHS OU - follow 6 months with DFE, sooner for concerns documented in this encounter Plan of Treatment Not on file documented as of this encounter Visit Diagnoses Diagnosis Primary open angle glaucoma (POAG) of both eyes, moderate stage documented in this encounter Discontinued Medications Medication Sig Discontinue Reason Start Date End Da te brimonidine-timoloL (Combigan) 0.2-0.5 % ophthalmic solutionIndications:Pr imary open angle glaucoma (POAG) of both eyes, moderate stage Administer 1 drop into both eyes 2 (two) times a day Reorder 06/08/2020 02/11/2023 latanoprost (XALATAN) 0.005 % ophthalmic solutionIndications:op en angle glaucoma Administer 1 drop into both eyes nightly Reorder 10/09/2022 02/11/2023 documented as of this encounter Eye Exam Visual Acuity (Snellen - Linear) Right eye Left eye Dist sc 20/25 20/25 Tonometry (Applanation, 9:51 AM) Right eye Left eye Pressure 19 20 Pupils Dark Light Shape React APD Right eye 3 2.5 Round Minimal None Left eye 3 2.5 Round Minimal None Visual Vann HVF OU today Extraocular Movement Right eye Left eye Full Full Neuro/Psych Oriented x3: Yes Mood/Affect: Normal Care Teams Mortgage Coordinator Relationship Specialty Start Date End Date Elpidio Serrato MD PCP - General Internal Medicine 06/09/18 documented as of this encounter
--- OUTSIDE RECORDS SUMMARY | 2024-04-29 14:08 | XMS_ITS | Encounter Summary ---
Author Organization [facility] Address [address] [place] [address] Phone Care Team Providers Care Documentation Writer Name Role Phone Elpidio Serrato MD Primary Care Provider [phone] Reason for Referral * Diagnostic Imaging (Routine) - Closed Specialty Diagnoses / Procedures Referred By Constantino alvarado Referred To Contact Diagnoses Primary open angle glaucoma (POAG) of both eyes, moderate stage Procedures OCT, Optic Nerve - OU - Both Eyes Makayla Ramos MD [address] [place] [address] Phone: tel: fax: [facility] (All Locations) Referral ID Status Reason Start Date Expiration Date Visits Re quested Visits Authorized [id number] Closed 10/18/2022 11/17/2023 1 1 Encounter Details Date Type Department Care Team (Late st Contact Info) Description 10/18/2022 Orders Only [facility] Ophthalmology [facility] [place] [address] Makayla Ramos MD [address] [place] [address] Primary open angle glaucoma (POAG) [...] on file Legal Sex Female 3:59 AM LINOTYPIST Gender Identity Female 05/13/2021 4:21 PM LINOTYPIST Sexual Orientation Not on file documented as of this encounter Plan of Treatment Not on file documented as of this encounter Results * OCT, Optic Nerve - OU - Both Eyes (02/11/2023 9:19 AM CDT) RNFL OS 73 micrometers CONTINUUM RNFL OD 72 micrometers CONTINUUM Anatomical Region Laterality Modality Head Other Narrative 02/11/2023 9:56 AM CDT Right Eye Reliability was good. Temporal thickness was normal. Superior thickness was normal. Nasal thickness was normal. Inferior thickness was showing abnormal thinning. Average RNFL thickness 72 micrometers. Left Eye Reliability was good. Temporal thickness was normal. Superior thickness was normal. Nasal thickness was normal. Inferior thickness was showing abnormal thinning. Average RNFL thickness 73 micrometers. Notes Improved from prior us Makayla Ramos MD OPHTH TOMOGRAPHY Final Result documented in this encounter Visit Diagnoses Diagnosis Primary open angle glaucoma (POAG) of both eyes, moderate stage- Primary Primary open angle glaucoma (POAG) of both eyes, moderate stage documented in this encounter Care Teams Documentation Writer Relationship Specialty Start Date End Date Elpidio Serrato MD PCP - General Internal Medicine 06/09/18 documented as of this encounter
--- OUTSIDE RECORDS SUMMARY | 2024-04-29 14:08 | XMS_ITS | Encounter Summary ---
Author Organization [facility] Address [address] [place] [address] Phone Care Team Providers Care Lathe Sander Name Role Phone Elpidio Serrato MD Primary Care Provider [phone] Encounter Details Date Type Department Care Team (Latest Contact Info) Description 10/29/2023 9:00 AM CDT Office Visit [facility] Endocrinology Metabolism and Lipid [address] [place] [address] [place] [address] Lia Mariano, BIT SHAVER [address] [place] [address] Type 2 diabetes mellitus with hyperlipidemia (HCC) (Primary Dx); Acquired hypothyroidism; Vitamin D deficiency; Age-related osteoporosis without current pathological fracture Social [...] on file 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 Gender Identity Female 05/13/2021 4:21 PM CONFECTIONERY 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 Type 2 diabetes mellitus with hyperlipidemia (HCC) Increase Ozempic to 2mg. When you increase this dose, please reduce your Lantus to 45. You will reduce your mealtime insulin to 8 units for the morning meal. Report any low glucose moments tot he office. Please check your glucose level when your CGM alarms low and you do not have symptoms. 2. Acquired hypothyroidism Continue your levothyroxine. 3. Vitamin D deficiency Please take your Vitamin D with food. 4. Osteopenia We will pursue the Reclast infusion. documented in this encounter Ordered Prescriptions Prescription Sig Dispense Quantity Refills Last Filled Start Date End Date semaglutide (OZEMPIC) 2 mg/dose (8 mg/3 mL) pen injector injection Inject 2 mg under the skin once a week 9 mL 3 10/29/2023 03/30/2024 documented in this encounter Progress Notes * Lia Mariano NP - 10/29/2023 9:00 AM CDT Images from the original note [...] been 5.4% - 6.0%. Today it is 5.9%. Interval Hx: She reports ROSE worsened in the last few months. Her PCP, Dr Serrato, is evaluating this. She still sleeps on 1.5 pillows, unchanged. Denies orthopnea, palpitations and edema. She denies new weightgain. Wt up 1lb since 04/2023. She will complete a stress test (11/13/23) and echo (12/2023). Denies recent lab work. She feels she has lost some satiety effect with Ozempic dose and would like to pursue more weight loss. Current therapy Lantus 52 units in morning Humalog 10 units with morning meals. 10 units in evening only if BG is > 150. metformin 500 mg AM Ozempic, 1 mg weekly - doses on Saturday. Jardiance 10 mg Daily. CGM Interpretation - Sensor: Dexcom G6 Mobile - Wear time: 99.1% - Indication for placement: Diabetes, insulin use, risk of hypoglycemia - Analysis: Time in range: 86%; 12% high, 2% low. - Interpretation: These CGM data show significant variability, likely associated with changing dietary patterns and insulin dosing. Noted mild excursions, and some nighttime lows. She reports feelingasymptomaticw ith lows in nighttime. She will treat with glucose tabs and not check FSBG. By way of complications Isabelle Lutz reports [...] CATARACT EXTRACTION Right 06/14/2022 CE/IOL + goniotomy ME APPENDECTOMY unkown dates per pt ME DELIVERY ONLY Section - in 1972 and 1975 (Added by TW Conv) ME TENDON SHEATH INCISION Hand Incision Tendon Sheath [...] negative. Vitals & Physical Exam Blood pressure 110/70, pulse 79, temperature 36.8 ??C (98.2 ??F), temperature source Temporal, height 151.9 cm (4' 11.8 ), weight 93 kg (205 lb). Body mass index is 40.3 kg/m??. Physical Exam Vitals reviewed. Constitutional: Appearance: [...] Allergies: Pseudoephedrine and Valacyclovir HOME MEDICATIONS : aspirin 81 mg enteric coated tablet atorvastatin (LIPITOR) 20 mg tablet celecoxib (CeleBREX) 200 mg capsule empagliflozin (Jardiance) 10 mg tablet ergocalciferol (VITAMIN D) 50,000 unit capsule insulin aspart (NovoLOG) 100 unit/mL (3 mL) pen for injection insulin glargine (BASAGLAR) 100 unit/mL (3 mL) pen for injection insulin lispro (HumaLOG, ADMELOG) 100 unit/mL vial for injection levothyroxine (SYNTHROID) 88 mcg tablet metFORMIN (GLUCOPHAGE) 500 mg tablet olmesartan (BENICAR) 40 mg tablet Ozempic 1 mg/dose (4 mg/3 mL) pen injector injection acetaminophen (TYLENOL) 325 mg tablet blood glucose diagnostic (glucose blood) strip brimonidine-timoloL (Combigan) 0.2-0.5 % ophthalmic solution latanoprost (XALATAN) 0.005 % ophthalmic solution pen needle, diabetic (BD Ultra-Fine Hailee Pen Needle) 32 gauge x 5/32 needle Lab Results Component Value Date TSH 1.65 04/29/2023 FREET4 1.39 12/09/2017 Lab Results Component Value Date CHOL 172 04/29/2023 TRIG 147 04/29/2023 HDL 49 (L) 06/25/2022 LDLCALC 91 01/13/2021 LDLDIRECT 95 04/29/2023 Lab Results Component Value Date PTH 71 06/25/2022 25HYDROVITD 40 01/13/2021 Lab Results Component Value Date HGBA1C 5.9 10/29/2023 Assessment & Plan 1. Type 2 diabetes mellitus with hyperlipidemia (HCC) Increase Ozempic to 2mg. -When you increase this dose, please reduce your Lantus to 45. -You will also reduce your mealtime insulin to 8 units for the morning meal. -Report any low glucose moments to the office. -Please check your glucose level when your CGM alarms low and you do not have symptoms. 2. Acquired hypothyroidism Continue your levothyroxine. 3. Vitamin D deficiency Please take your Vitamin D with food. 4. Osteoporosis We will likely pursue the Reclast infusion once labs are completed. I will discuss with Dr Bell. See Dr Bell in 6 months. Orders Placed This Encounter POCT glucose POCT hemoglobin A1c --[facility] Division of Endocrinology, Metabolism, & Lipid Research [address] [place] [id number] Cosigned by Merna Bell MD at 11/02/2023 12:16 AM CDT documented in this encounter Plan of Treatment Not on file documented as of this encounter Procedures Procedure Name Priority Date/Time Associated Diagnosis Comments POCT HEMOGLOBIN A1C Routine 10/29/2023 8 :55 AM CDT Type 2 diabetes mellitus with hyperlipidemia (HCC) POCT GLUCOSE Routine 10/29/2023 8:55 AM CDT Type 2 diabetes mellitus with hyperlipidemia (HCC) documented in this encounter Results * Vitamin D 25 hydroxy (10/29/2023 9:30 AM CDT) Vitamin D 83.0 20.0 - 100.0 ng/mL [facility] Comment: VITAMIN D DEFICIENCY = LESS THAN or EQUAL TO 20 ng/mL VITAMIN D INSUFFICIENCY = 21 - 29 ng/mL VITAMIN D SUFFICIENT = 30-100 ng/mL Blood 10/29/2023 9:30 AM CDT 10/29/2023 11:19 AM CDT Lia Mariano BIT SHAVER LAB BLOOD ORDERABLES Phyllis l Result [facility] * (ABNORMAL) Comprehensive metabolic panel (10/29/2023 9:30 AM CDT) Total Protein 6.7 6.1 - 8.4 g/dL [facility] Albumin 4.3 3.5 - 5.2 g/dL [facility] Calcium 9.4 8.6 - 10.3 mg/dL [facility] BUN 39(H) 7 - 23 mg/dL [facility] Total Bilirubin 0.25 0.20 - 1.40 mg/dL [facility] Alk Phos, Total 96 35 - 129 IU/L [facility] AST (SGOT) 31 11 - 47 IU/L [facility] ALT (SGPT) 30 6 - 53 IU/L [facility] Creatinine 1.32(H) 0.60 - 1.10 mg/dL [facility] Sodium 144 135 - 145 mmol/L [facility] Potassium 5.9(H) 3.3 - 5.1 mmol/L [facility] Chloride 110(H) 95 - 107 mmol/L [facility] CO2 Content 20(L) 21 - 29 mmol/L [facility] Glucose 109(H) 64 - 99 mg/dL [facility] Comment: NONFASTING GLUCOSE RANGE = 64-199 mg/dL FASTING GLUCOSE 64 - 99 = NORMAL FASTING GLUCOSE 100 - 125 = IMPAIRED FASTING GLUCOSE FASTING GLUCOSE >=126 = PROVISIONAL DIAGNOSIS OF DIABETES eGFR 42.4(L) >60.0 mL/min/1.7 3 m2 [facility] Blood 10/29/2023 9:30 AM CDT 10/29/2023 11:19 AM CDT Lia Mariano BIT SHAVER LAB BLOOD ORDERABLES Phyllis alanis Result [facility] * CBC with auto differential (10/29/2023 9:30 AM CDT) White Blood Count 8.4 3.6 - 11.2 K/uL [facility] RBC 4.11 3.63 - 4.92 M/uL [facility] Hemoglobin 12.6 11.9 - 15.5 g/dL [facility] Hematocrit 37.5 36.1 - 44.3 % [facility] MCV 91.3 80.0 - 97.6 fL [facility] MCH 30.5 26.7 - 33.7 pg [facility] MCHC 33.5 32.7 - 35.5 g/dL [facility] RBC Dist Width 13.2 12.3 - 17.0 % [facility] Platelet Count 224 140 - 440 K/uL [facility] MPV 9.3 6.8 - 10.4 fL [facility] Neutrophils % 62.6 38.7 - 74.5 % [facility] Lymphocyte % 28.4 20.0 - 54.3 % [facility] Monocytes % 7.1 4.3 - 13.5 % [facility] Eosinophils % 1.3 0.0 - 6.0 % [facility] Basophil % 0.6 0.0 - 3.0 % [facility] Absolute Neutrophil 5.2 1.8 - 6.6 K/uL [facility] Absolute Lymphocyte 2.4 0.8 - 3.3 K/uL [facility] Absolute Monocyte 0.6 0.2 - 1.2 K/uL [facility] Absolute Eosinophil 0.1 0.0 - 0.5 K/uL [facility] Absolute Basophil 0.0 0.0 - 0.2 K/uL [facility] Nucleated RBC % 0.0 0.0 - 0.4 /100 WBC [facility] Blood 10/29/2023 9:30 AM CDT 10/29/2023 11:19 AM CDT Lia Mariano BIT SHAVER LAB BLOOD ORDERABLES Phyllis l Result Performing Organization Address City/[facility] Co de Phone Number [facility] * TSH (10/29/2023 9:30 AM CDT) Pathologist [facility] TSH (Thyrotropin) 0.69 0.27 - 4.20 uIU/mL [facility] Blood 10/29/2023 9:30 AM CDT 10/29/2023 11:19 AM CDT Lia Mariano BIT SHAVER LAB BLOOD ORDERABLES Phyllis l Result Performing Organization Address [facility] Co de Phone Number [facility] * T4, free (10/29/2023 9:30 AM CDT) Pathologist [facility] Free T4 1.38 0.80 - 1.80 ng/dL [facility] Blood 10/29/2023 9:30 AM CDT 10/29/2023 11:19 AM CDT Lia Mariano BIT SHAVER LAB BLOOD ORDERABLES Phyllis l Result Performing Organization Address City/[facility] Co de Phone Number [facility] * Albumin Creatinine Ratio, Urine (10/29/2023 9:30 AM CDT) Microalb, Ur 7.9 0.0 - 22.9 mg/L [facility] Random Urine Creatinine 109.6 mg/dL [facility] Microalb/Creat Ratio 7.2 0.0 - 29.9 mg/g [facility] Urine 10/29/2023 9:30 AM CDT 10/29/2023 11:19 AM CDT Lia Mariano BIT SHAVER LAB URINE ORDERABLES Phyllis l Result Performing Organization Address [facility]/ZIP Co de Phone Number [facility] * (ABNORMAL) Lipid panel (10/29/2023 9:30 AM CDT) Triglycerides 101 <150 mg/dL [facility] Comment: Desirable: <150 mg/dL, fasting <175 mg/dL, non-fasting Persistently elevated triglycerides may enhance atherosclerotic cardiovascular disease. Total Cholesterol 158 <200 mg/dL [facility] Total HDL-C Direct 46(L) >50 mg/dL [facility] Comment: A low HDL-C may be inidcative of metabolic syndrome and enhance atherosclerotic cardiovascular disease risk. Non-HDL cholesterol 112 <220 mg/dL [facility] [place] LDL Chol 92 <190 mg/dL [facility] Blood 10/29/2023 9:30 AM CDT 10/29/2023 11:19 AM CDT Narrative [facility] - 10/29/2023 1:02 PM CDT Current interpretive data was last updated April 14, 2021. For adults ages 40-79, the ACC/AHA recommends discussing your 10-year atherosclerotic cardiovascular disease risk with your health care provider. ??https://www.acc.org/ASCVDApp These lab test should be done fasting. This means do not eat or drink for at least 12 hours prior to getting your blood drawn. Lia Mariano BIT SHAVER LAB BLOOD ORDERABLES Phyllis l Result [facility] * POCT hemoglobin A1c (10/29/2023 8:55 AM CDT) Hemoglobin A1C, POC 5.9 % Blood 10/29/2023 8:55 AM CDT us Lia Mariano BIT SHAVER POINT OF CARE TEST ORDERA BLES Final Result * POCT glucose (10/29/2023 8:55 AM CDT) Glucose Blood, POC 99 mg/dL Blood 10/29/2023 8:55 AM CDT us Lia Mariano BIT SHAVER POINT OF CARE TEST ORDERA BLES Final Result documented in this encounter Visit Diagnoses Diagnosis Type 2 diabetes mellitus with hyperlipidemia (HCC)- Primary Acquired hypothyroidism Unspecified hypothyroidism Vitamin D deficiency Age-related osteoporosis without current pathological fracture Type 2 diabetes mellitus with hyperlipidemia (HCC) Vitamin D deficiency Acquired hypothyroidism Unspecified hypothyroidism documented in this encounter Discontinued Medications Medication Sig Discontinue Reason Start Date End Da te Ozempic 1 mg/dose (4 mg/3 mL) pen injector injectionIndications :Type 2 diabetes mellitus (HCC) INJECT 1MG SUBCUTANEOUSLY ONCE A WEEK. 10/09/2022 10/29/2023 documented as of this encounter Care Teams Lathe Sander Relationship Specialty Start Date End Date Elpidio Serrato MD PCP - General Internal Medicine 06/09/18 documented as of this encounter
--- OUTSIDE RECORDS SUMMARY | 2024-04-29 14:08 | XMS_ITS | Encounter Summary ---
Author Organization [facility] Address [address] [place] [address] Phone Care Team Providers Care Educational Resource Coordinator Name Role Phone Elpidio Serrato MD Primary Care Provider [phone] Encounter Details Date Type Department Care Team (Latest Contact Info) Description 12/03/2022 11:20 AM CDT Office Visit [facility] Endocrinology Metabolism and Lipid [address] [facility] [address] [place] [address] [place] [address] Merna Bell MD [address] [facility] [address] [place] [address] 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, with long-term current use of insulin, unspecified laterality (HCC) (Primary Dx); Type 2 diabetes mellitus (HCC); Hypertension, unspecified type Social History Tobacco Use Types Packs/Day [...] on file 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 Gender Identity Female 05/13/2021 4:21 PM 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 Sexual Orientation Not on file documented as of this encounter Last Filed Vital Signs Vital Sign Reading Time Taken Comments Blood Pressure 99/53 12/03/2022 10:07 AM CDT Pulse 81 12/03/2022 10:07 AM CDT Temperature 36.7 ??C (98.1 ??F) 12/03/2022 10:07 AM C DT Respiratory Rate - - Oxygen Saturation - - Inhaled Oxygen Concentration - - Weight 88.5 kg (195 lb) 12/03/2022 10:07 AM CDT Height 152.4 cm (5') 12/03/2022 10:07 AM CDT Body Mass Index 38.08 12/03/2022 10:07 AM CDT documented in this encounter Ordered Prescriptions Prescription Sig Dispense Quantity Refills Last Filled Start Date End Date pen needle, diabetic (BD Ultra-Fine Hailee Pen Needle) 32 gauge x 5/32 needleIndications: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, with long-term current use of insulin, unspecified laterality (HCC) Use 4X daily 300 each 3 12/03/2022 olmesartan (BENICAR) 40 mg tabletIndications:Hyp ertension, unspecified type Take 1 tablet (40 mg total) by mouth daily 90 tablet 3 12/03/2022 10/29/19 insulin glargine (BASAGLAR) 100 unit/mL (3 mL) pen for injectionIndications: 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 Endocrinology Outpatient Clinic Note Patient: Isabelle Lutz, 72 y.o. female (: 1950 ) PCP: Elpidio Serrato MD (Referring: Elpidio Serrato MD) CC: diabetes HPI & Subjective 70 y.o. female who returns for follow up of Type 2 Diabetes, Hypertension and Hyperlipidemia. Most recent A1c is 5.4% Current therapy Lantus 42 units' Humalog 10 units with meals. metformin 500 mg AM, Ozempic, 1 mg weekly Jardiance 10 mg Daily. She is now using the Dexcom G6 CGM, which she finds very helpful, and has reduced the frequency of her fingerstick glucose tests. She uses it continuously for frequent monitoring, safety and to adjust insulin doses. CGM Interpretation Sensor Usage; 100% Mean BG 152 mg/dl. Time in Range 763% High 31% Low 1% <1% Very Low Pattern analysis; some mild hypoglycemia mid-morning and in the evening with increased variability.For recommendations, see plan. By way of complications Isabelle Lutz reports no diabetic retinopathy She had laser to her right eye in May,, for glaucoma, not for diabetes. She is also being followed for Rt eye cataracts and glaucoma surgery recently, scheduled to do more in August. She has mildly reduced kidney function, GFR [...] D 50,000 weekly on Sat. She denies frequent falls. She takes levothyroxine 88 mcg daily, takes in on an empty stomach and doesn't eat for an hour. PMH / PSH Past Medical History: Diagnosis Date Cataract Diabetes mellitus (HCC) Diabetic retinopathy (HCC) Glaucoma Multiparity History Of ___ Previous Pregnancies - 7 pregnancies, 2 children - C-sections. (Added by [employer] (SAM) Conv) Nonproliferative diabetic retinopathy (HCC) 11/03/2009 Personal history of other specified conditions History of chest pain - Stress test negative on 08/01/06 (Added by [employer] Mapping (SAM) Conv) Past Surgical History: Procedure Laterality Date CATARACT EXTRACTION Right 06/14/2022 CE/IOL + goniotomy [place] APPENDECTOMY unkown dates per pt [place] DELIVERY ONLY Section - in 1972 and 1975 (Added by Surveying And Mapping (SAM) Conv) [place] TENDON SHEATH INCISION Hand Incision Tendon Sheath Of A Finger - right hand, III finger, 08/20 (Added by [employer]) Social & Family History Social History Tobacco [...] Other Thyroid Disorder - mother (Added by Surveying And Mapping (SAM) Conv) Diabetes type II Other Type II Diabetes Mellitus - mother (Added by Surveying And Mapping (SAM) Conv) Anesthesia problems Neg Hx Review of Systems Twelve point ROS reviewed and negative except as noted in HPI. All other systems negative. Vitals & Physical Exam Blood pressure 99/53, pulse 81, temperature 36.7 ??C (98.1 ??F), height 152.4 cm (5'), weight 88.5 kg (195 lb). Body mass index is 38.08 kg/m??. Physical Exam Gen : no acute [...] ophthalmic solution celecoxib (CeleBREX) 200 mg capsule ergocalciferol (VITAMIN D) 50,000 unit capsule insulin lispro (HumaLOG, ADMELOG) 100 unit/mL vial for injection latanoprost (XALATAN) 0.005 % ophthalmic solution levothyroxine (SYNTHROID) 88 mcg tablet Ozempic 1 mg/dose (4 mg/3 mL) pen injector injection HUMALOG KWIKPEN INSULIN 100 unit/mL insulin pen insulin glargine (BASAGLAR) 100 unit/mL (3 mL) pen for injection insulin lispro (HumaLOG, ADMELOG) 100 unit/mL vial for injection Jardiance 10 mg tablet metFORMIN (GLUCOPHAGE) 500 mg tablet olmesartan-hydrochlorothiazide (BENICAR HCT) 40-12.5 mg per tablet pen needle, diabetic (BD ULTRA-FINE HAILEE PEN NEEDLE) 32 gauge x 5/32 needle empagliflozin (Jardiance) 10 mg tablet insulin glargine (BASAGLAR) 100 unit/mL (3 mL) pen for injection metFORMIN (GLUCOPHAGE) 500 mg tablet olmesartan (BENICAR) 40 mg tablet pen needle, diabetic (BD Ultra-Fine [...] 01/13/2021 Lab Results Component Value Date HGBA1C 6.0 12/03/2022 Assessment & Plan Type 2 diabetes mellitus (CMS/[facility]) Glucoses are excellent , A1c 6.0%, which is excellent - Continue use of Dexcom CGM for frequent monitoring, insulin dose adjustments and safety (alarms) - Continue metformin, Ozempic and Jardiance - Continue on same basal/bolus regimen Hypertension At goal today. Pt takes Benicar which is omesartan + HCTZ at near maximum dose. I will change this to olmesartan only, no HCTZ. Vitamin D deficiency Osteopenia - repeat DEXA, awaiting official reading - By my read, pt has osteopenia, and with substantial drop in BMD, should be treated. - continue on Vit D supplements Hyperlipidemia - LDL 104 , on lipitor 20 mg daily - This is not quite at target, consider addition of ezetimibe (not discussed at the visit). 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 Endocrinology, Metabolism, & Lipid Research documented in this encounter Plan of Treatment Not on file documented as of this encounter Procedures Procedure Name Priority Date/Time Associated Diagnosis Comments POCT HEMOGLOBIN A1C Routine 12/03/2022 10:12 AM CDT 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, with long-term current use of insulin, unspecified laterality (HCC) POCT GLUCOSE 47629 Routine 12/03/2022 10 :09 AM CDT 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, with long-term current use of insulin, unspecified laterality (HCC) documented in this encounter Results * POCT hemoglobin A1c (12/03/2022 10:12 AM CDT) Hemoglobin A1C, POC 6.0 % Blood 12/03/2022 10:1 2 AM CDT us Merna Bell MD POINT OF CARE TEST ORDERABLES Final Result * POCT glucose (12/03/2022 10:09 AM CDT) Glucose Blood, POC 88 mg/dL Blood 12/03/2022 10:0 9 AM CDT us Merna Bell MD POINT OF CARE TEST ORDERABLES Final Result documented in this encounter Visit Diagnoses Diagnosis 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, with long-term current use of insulin, unspecified laterality (HCC)- Primary Type 2 diabetes mellitus (HCC) Hypertension, unspecified type documented in this encounter Discontinued Medications Medication Sig Discontinue Reason Start Date End Da te metFORMIN (GLUCOPHAGE) 500 mg tablet TAKE 1 TABLET BY MOUTH TWICE A DAY Reorder 03/07/2021 12/03/2022 Jardiance 10 mg tabletIndications:Type 2 diabetes mellitus (HCC) TAKE 1 TABLET DAILY Reorder 12/14/202111/11 HUMALOG KWIKPEN INSULIN 100 unit/mL insulin pen INJECT 10 UNITS SUBCUTANEOUSLY AT BREAKFAST, 8 TO 12 UNITS AT LUNCH, AND 5 UNITS WITH SNACKS 04/27/2019 12/03/2022 insulin lispro (HumaLOG, ADMELOG) 100 unit/mL vial for injectionIndications:typ e 2 diabetes mellitus Inject 5 Units under the skin daily as needed for high blood sugar (With snacks) 12/03/2022 olmesartan-hydrochloroth iazide (BENICAR HCT) 40-12.5 mg per tabletIndications: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, with long-term current use of insulin, unspecified laterality (HCC),Hypertension, unspecified type TAKE 1 TABLET BY MOUTH EVERY DAY 07/20/2022 12/03/2022 pen needle, diabetic (BD ULTRA-FINE HAILEE PEN NEEDLE) 32 gauge x 5/32 needleIndications: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
--- OUTSIDE RECORDS SUMMARY | 2024-04-29 14:08 | XMS_ITS | Encounter Summary ---
Author Organization [facility] Address [address] [place] [address] Phone Care Team Providers Care Filtration Plant Operator Name Role Phone Elpidio Serrato MD Primary Care Provider [phone] Reason for Visit * Reason Comments Post-op Follow-up Encounter Details Date Type Department Care Team (Late st Contact Info) Description 10/05/2022 7:45 AM CDT Office Visit [facility] Ophthalmology [facility] [place] [address] Makayla Ramos MD [address] [place] [address] Primary open angle glaucoma (POAG) [...] on file Legal Sex Female 3:59 AM PC MAINTENANCE TECHNICIAN Gender Identity Female 05/13/2021 4:21 PM PC MAINTENANCE TECHNICIAN Sexual Orientation Not on file documented as of this encounter Progress Notes * Makayla Ramos MD - 10/05/2022 7:45 AM CDT Assessment/Plan Diagnoses and all orders for this visit: Primary open angle glaucoma (POAG) of both eyes, moderate stage (Primary) Assessment & Plan: POW6 from phaco/KDB OS Patient has recovered well from cataract surgery and is satisfied with visual outcome. And is using readers for near. For POAG will check HVF/OCT in 4 mos I have seen/examined the patient and I agree with the findings/plan of the Resident/Fellow documented in this encounter Miscellaneous Notes * Assessment & Plan Note - Vincent Gamboa MD - 10/05/2022 8:00 AM CDT Associated Problem(s): Primary open angle glaucoma (POAG) of both eyes, moderate stage POW6 from phaco/KDB OS Patient has recovered well from cataract surgery and is satisfied with visual outcome. And is using readers for near. For POAG will check HVF/OCT in 4 mos documented in this encounter Plan of Treatment Not on file documented as of this encounter Visit Diagnoses Diagnosis Primary open angle glaucoma (POAG) of both eyes, moderate stage- Primary documented in this encounter Discontinued Medications Medication Sig Discontinue Reason Start Date End Da te prednisoLONE acetate (PRED FORTE) 1 % ophthalmic suspension Administer 1 drop into the left eye 4 (four) times a day 4 times daily (when you wake up, lunch, dinner, bedtime). Therapy completed 08/16/2022 10/05/2022 moxifloxacin (VIGAMOX) 0.5 % ophthalmic solution Administer 1 drop into the left eye 4 (four) times a day Therapy completed 08/16/2022 10/05/2022 documented as of this encounter Eye Exam Visual Acuity (Snellen - Linear) Right eye Left eye Both eyes Dist sc 20/20 -1 20/20 -1 20/20 -1 Tonometry (Applanation, 7:51 AM) Right eye Left eye Pressure 16 17 Pupils Dark Light Shape React APD Right eye 2.5 2.0 Round Brisk None Left eye 2.5 2.0 Round Brisk None Visual Vann Right eye Left eye Full Restrictions Partial outer garcia perior nasal deficiency Extraocular Movement Right eye Left eye Full Full Neuro/Psych Oriented x3: Yes Mood/Affect: Normal External Exam Right eye Left eye External Normal Normal Slit Lamp Exam Right eye Left eye Lids/Lashes Normal Normal Conjunctiva/Sclera White and quiet trace injecti on Cornea Clear Clear Anterior Chamber Deep and quiet Deep and quiet Iris Round and reactive Round and newton ctive Lens PCIOL PCIOL Manifest Refraction Patient defers Mrx today, prefers to use readers. Care Teams Filtration Plant Operator Relationship Specialty Start Date End Date Elpidio Serrato MD PCP - General Internal Medicine 06/09/18 documented as of this encounter
--- OUTSIDE RECORDS SUMMARY | 2024-04-29 14:08 | XMS_ITS | Encounter Summary ---
Author Organization [facility] Address [address] [place] [address] Phone Care Team Providers Care Automation Software Engineer Name Role Phone Elpidio Serrato MD Primary Care Provider [phone] Reason for Visit * Diagnostic Imaging (Routine) - Closed Specialty Diagnoses / Procedures Referred By Constantino alvarado Referred To Contact Diagnoses Primary open angle glaucoma (POAG) of both eyes, moderate stage Procedures Forrest Visual Field - OU - Both Eyes Makayla Ramos MD [address] [place] [address] Phone: tel: fax: [facility] (All Locations) Referral ID Status Reason Start Date Expiration Date Visits Re quested Visits Authorized [id number] Closed 05/16/2022 06/15/2023 1 1 Encounter Details Date Type Department Care Team (Late st Contact Info) Description 02/11/2023 9:00 AM CDT Imaging Exam [facility] Ophthalmology [address] 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 OPERATOR Gender Identity Female 05/13/2021 4:21 PM BENCH LATHE OPERATOR Sexual Orientation Not on file documented as of this encounter Plan of Treatment Not on file documented as of this encounter Procedures Procedure Name Priority Date/Time Associated Diagnosis Comments FORREST VISUAL FIELD - OU - BOTH EYES Routine 02/11/2023 9:19 AM CDT Primary open angle glaucoma (POAG) of both eyes, moderate stage documented in this encounter Results * Forrest Visual Field - OU - Both Eyes (02/11/2023 9:19 AM CDT) Pattern Deviation OS 3.51 db CONTINUUM Pattern Deviation OD 11.14 db CONTINUUM Mean Deviation OS -2.95 db CONTINUUM Mean Deviation OD -8.50 db CONTINUUM Anatomical Region Laterality Modality Head Other Narrative 02/11/2023 9:57 AM CDT Right Eye Fixation was good. Cooperation was good. Reliability was good. Progression has been stable. Foveal threshold was normal. Findings include superior arcuate defect. Mean Deviation was -8.50 db. Pattern Deviation was 11.14 db. Left Eye Fixation was good. Cooperation was good. Reliability was good. Progression has been stable. Foveal threshold was normal. Findings include superior arcuate defect. Mean Deviation was -2.95 db. Pattern Deviation was 3.51 db. us Makayla Ramos MD OPH VISUAL FIELD Final Resu lt documented in this encounter Visit Diagnoses Diagnosis Primary open angle glaucoma (POAG) of both eyes, moderate stage documented in this encounter Care Teams Automation Software Engineer Relationship Specialty Start Date End Date Elpidio Serrato MD PCP - General Internal Medicine 06/09/18 documented as of this encounter
--- OUTSIDE RECORDS SUMMARY | 2024-04-29 14:08 | XMS_ITS | Encounter Summary ---
Author Organization [facility] Address [address] [place] [address] Phone Care Team Providers Care Laborer Car Barn Name Role Phone Elpidio Serrato MD Primary Care Provider [phone] Encounter Details Date Type Department Care Team (Late st Contact Info) Description 08/20/2023 Orders Only [facility] Endocrinology Metabolism and Lipid [address] [facility] 13[address] [place] [address] [place] [address] Princess Hu RMA Social History Tobacco Use Types Packs/Day Years [...] on file Legal Sex Female 3:59 AM PLATE MILL HAND Gender Identity Female 05/13/2021 4:21 PM PLATE MILL HAND Sexual Orientation Not on file documented as of this encounter Ordered Prescriptions Prescription Sig Dispense Quantity Refills Last Filled Start Date End Date insulin aspart (NovoLOG) 100 unit/mL (3 mL) pen for injection Inject 12 Units under the skin 3 (three) times a day 45 mL 2 08/20/2023 01/28/2024 documented in this encounter Plan of Treatment Not on file documented as of this encounter Visit Diagnoses Not on filedocumented in this encounter Care Teams Laborer Car Barn Relationship Specialty Start Date End Date Elpidio Serrato MD PCP - General Internal Medicine 06/09/18 documented as of this encounter
--- OUTSIDE RECORDS SUMMARY | 2024-04-29 14:08 | XMS_ITS | Encounter Summary ---
Author Organization [facility] Address [address] [place] [address] Phone Care Team Providers Care Ocean Forwarder Name Role Phone Elpidio Serrato MD Primary Care Provider [phone] Reason for Visit * Diagnostic Imaging (Routine) - Closed Specialty Diagnoses / Procedures Referred By Constantino alvarado Referred To Contact Diagnoses Primary open angle glaucoma (POAG) of both eyes, moderate stage Procedures OCT, Optic Nerve - OU - Both Eyes Makayla Ramos MD [address] [place] [address] Phone: tel: fax: [facility] (All Locations) Referral ID Status Reason Start Date Expiration Date Visits Re quested Visits Authorized [id number] Closed 10/18/2022 11/17/2023 1 1 Encounter Details Date Type Department Care Team (Late st Contact Info) Description 02/11/2023 9:20 AM CDT Imaging Exam [facility] Ophthalmology [address] [facility] [address] [place] [id number] Primary open angle glaucoma (POAG) of both eyes, moderate stage Social History Tobacco Use Types Packs/Day Years Used Date Smoking Tobacco: Never Smokeless Tobacco: Never AUDIT-C Answer Date Recorded Q1: How often do you have a drink containing alcohol? Never 08/03/2022 Q2: How many drinks containi ng alcohol do you have on a typical day when you are drinking? Patient does not drink 03/24/202 3 Q3: How often do you have si [...] on file Legal Sex Female 3:59 AM DIE TRY OUT WORKER Gender Identity Female 05/13/2021 4:21 PM DIE TRY OUT WORKER Sexual Orientation Not on file documented as of this encounter Plan of Treatment Not on file documented as of this encounter Procedures Procedure Name Priority Date/Time Associated Diagnosis Comments OCT, OPTIC NERVE - OU - BOTH EYES Routine 02/11/2023 9:19 AM CDT Primary open angle glaucoma (POAG) of both eyes, moderate stage documented in this encounter Results * OCT, Optic Nerve [...] stage documented in this encounter Care Teams Ocean Forwarder Relationship Specialty Start Date End Date Elpidio Serrato MD PCP - General Internal Medicine 06/09/18 documented as of this encounter
--- OUTSIDE RECORDS SUMMARY | 2024-04-29 14:08 | XMS_ITS | Encounter Summary ---
Author Organization [facility] Healthcare Address [address] [place] [address] Care Team Providers Care Recycle Worker Name Role Phone Elpidio Serrato MD Primary Care Provider Reason for Visit * Auth/Cert Specialty Diagnoses / Procedures Referred By Contac t Referred To Contact Diagnoses Primary open angle glaucoma (POAG) of both eyes, moderate stage Nuclear sclerotic cataract of left eye Primary open angle glaucoma (POAG) of both eyes, moderate stage [H40.1132] Nuclear sclerotic cataract of left eye [H25.12] Procedures MT XCAPSL CTRC RMVL INSJ IO LENS PROSTH W/O ECP MT GONIOTOMY MT XCAPSL CTRC RMVL INSJ IO LENS PROSTH CPLX WO ECP EXTRACTION CATARACT - PHACOEMULSIFICATION AND LENS IMPLANT GONIOTOMY Referral ID Status Reason Start Date Expiration Date Visits Re quested Visits Authorized [id number] 1 1 Encounter Details Date Type Department Care Team (Late st Contact Info) Description 08/16/2022 8:36 AM CDT Anesthesia Event [facility] Operating Room [facility] [address] [place] [address] Francisco Balderas MD [address] [place] [address] Marisol Mars NP [address] [facility] [place] [address] Anesthesia Record Procedure Summary Procedure Name Responsible Anesthesiologist Anesthesia Start Time Anesthesia Stop Time EXTRACTION CATARACT - PHACOEMULSIFICATION AND LENS IMPLANT (Left: Eye) Francisco Balderas MD 08/16/22 0836 08/16/22 0909 Events Date Time Event Comment 08/16/2022 0700 In Preop 0806 0836 An Start 0841 In Room 0841 An Start Data 0844 Start Supplemental O2 0844 An Induction The patient was reevaluated immediately before moderate or deep sedation use and before anesthesia induction. 0845 Anesthesia Ready 0845 Quick Note Due to patient variability ETCO2 may not always be recorded for MAC cases. 0849 Proc Start 0903 Proc Fin 0905 an stop data 0906 Out of Room 0909 Handoff to RN I completed my handoff [...] at the time of handoff: phase II 908 An Stop Meds Name Total midazolam PF 0.5 mg fentaNYL 50 mcg dexmedeTOMIDine 80mcg/20mL (4 mcg/mL) 12 mcg Lactated Ringer's (LR) infusion 400 mL * Agents Name O2% N2O O2 * Blood No blood administrations on file. Lines, Drains, and Airways Type Details Placement Removal RETIRED Surgical Site 06/14/22; 0838; Ri ght; Eye; 01/20/24; 0656; Removal date unknown/not present on admission 06/14/22 0838 by Fabi Mathews RN 01/20/24 0656 by Joanna Ramos RN Peripheral IV Placement Date: 08/16/22; Placement Time: 755; Catheter Size: 20 G; Orientation: Anterior, Left, Proximal; Location: Forearm; Inserted by: denise berry; Insertion Attempts: 1; Removal Date: 08/16/22; Removal Time: 95308/16/22 0756 by Denise Berry RN 08/16/22 0954 by Pratima Bar RN RETIRED Surgical Site 08/16/22; 0849; Le ft; Eye; 01/20/24; 0656; Removal date unknown/not present on admission 08/16/22 0849 by Yisel Green RN 01/20/24 0656 by Joanna Ramos RN documented in this encounter Social History [...] on file Legal Sex Female 3:59 AM FRIT MIXER AND BURNER Gender Identity Female 05/13/2021 4:21 PM FRIT MIXER AND BURNER Sexual Orientation Not on file documented as of this encounter OR Notes * Anesthesia Postprocedure Evaluation - Wally Man MD - 08/16/2022 9:36 AM CDT Patient: Isabelle Lutz Procedure Summary Date: 08/16/22 Room / Location: [facility] CAM OR POD 4 ROOM P / [facility] CAM OR POD 4 Anesthesia Start: 835 Anesthesia Stop: 908 Procedures: EXTRACTION CATARACT - PHACOEMULSIFICATION AND LENS IMPLANT (Left: Eye) GONIOTOMY (Left: Eye) Diagnosis: Primary open angle glaucoma (POAG) of both eyes, moderate stage Nuclear sclerotic cataract of left eye (Primary open angle glaucoma (POAG) of both eyes, moderate stage [H40.1132]) (Nuclear sclerotic cataract of left eye [H25.12]) Surgeons: Makayla Ramos MD Responsible Provider: Francisco Balderas MD Anesthesia Type: MAC ASA Status: 2 Anesthesia Type: MAC Last vitals BP 93/65 Pulse 75 Temp 36.1 ??C (97 ??F) (Temporal) Resp 15 SpO2 100% Anesthesia Post Evaluation Patient location during evaluation: PACU Patient participation: complete - patient participated Level of consciousness: fully awake Pain score: 0 Pain management: adequate Airway patency: adequate and patent Cardiovascular status: acceptable and hemodynamically stable Respiratory status: acceptable and room air Hydration status: acceptable Pt is: normothermic Nausea/Vomiting status: none No notable events documented. * Anesthesia Preprocedure Evaluation - Francisco Balderas MD - 08/03/2022 2:14 PM CDT Images from the original note were not included. [facility] for Preoperative Assessment and Planning Preoperative Evaluation Record Evaluation type/location: TPAP from [facility] Planned procedure site: [facility] CAM OR (Pod 4) Date: 08/03/22 NOTE: [...] Cardiovascular Pertinent negatives: hypertension ; CAD ; CT ; CABG ; valvular heart disease; atrial [...] provided by telephone and electronically sent via [employer]. Patient verbalized understanding of preoperative plan. Blood bank needs for day of procedure: No type and screen needed Pending labs/tests include: POC Glucose The patient is on aspirin therapy for primary prevention. The bleeding risk for the planned procedure is insignificant and therefore aspirin can be continued throughout the periprocedural period. Please call the CPAP chart room clinician ([phone]) with any questions. TPAP complete Preoperative evaluation [...] TW Conv) ??? Nonproliferative diabetic retinopathy (CMS/HCC) (HCC) 11/03/2009 ??? Personal history of other specified conditions History of chest pain - Stress test negative on 08/01/06 (Added by TW Conv) Past Surgical History: Procedure Laterality Date ??? CATARACT EXTRACTION Right 06/14/2022 CE/IOL + goniotomy ??? MT APPENDECTOMY unkown dates per pt ??? MT DELIVERY ONLY Section - in 1972 and 1975 (Added by TW Conv) ??? MT TENDON SHEATH INCISION Hand Incision Tendon Sheath [...] mg enteric coated tablet 08/03/2022 -- -- ProviderAldair MD atorvastatin (LIPITOR) 20 mg tablet 08/03/2022 [...] for injection 08/02/2022 -- -- ProviderAldair MD insulin lispro (HumaLOG, ADMELOG) 100 unit/mL [...] taking differently: Take 88 mcg by mouth shaker plate operator before breakfast metFORMIN (GLUCOPHAGE) 500 mg [...] last 720 hours. Kathrin index score: 100 DOS Physical Exam Medical history, medications, and allergies reviewed. Attestation: With today's edits, I endorse the findings of the anesthesia pre-evaluation assessment dated: 08/03/2022. Airway Exam: Mallampati: III Cervical ROM: FROM TM distance: normal Cardiovascular Exam: Rate: regular Rhythm: regular Pulmonary Exam: LCTA Dental Exam: Appears intact Current state: Patient's current state is cooperative and interactive. Anesthesia Plan ASA 2 My patient is approved for the Anesthesia Controlled Medication protocol when under care of a FINANCIAL COORDINATOR Planned anesthesia: MAC Induction: Induction: intravenous. Postoperative Plan: Postoperative administration opioids intended. No postoperative mechanical ventilation intended. No trial extubation planned. Informed Consent: Anesthesia plan and risks discussed with patient. Plan and Consent Comments: MAC anesthetic including potential risk for converting to a general anesthetic with airway placement were discussed with the patient. All questions answered. Expectation for the possibility of awareness during MAC established with the patient. NPO times appropriate. Consent and Attending signature: I and/or my designee have discussed the anesthesia plan, benefits, possible alternatives, parental presence at time of induction (if indicated), and clinically relevant risks that may include dental injury, unintentional awareness, and/or other complications. The patient and/or parent/legal guardian understand, and agree to proceed. All questions answered. documented in this encounter Plan of Treatment Not on file documented as of this encounter Visit Diagnoses Not on filedocumented in this encounter Administered Medications Inactive Administered Medications - up to 3 most recent administrations Medication Order MAR Action Action Date Dose Rate Site dexmedeTOMIDine (PRECEDEX) 80 mcg/20 mL (4 mcg/mL) in sodium chloride 0.9% (premix) intravenous, As needed, Starting on Dilma 08/16/22 at 0836, Anesthesia Intra-op Given 08/16/2022 8:36 AM CDT 12 mcg fentaNYL (SUBLIMAZE) preservative free injection intravenous, As needed, Starting on Dilma 08/16/22 at 0844, Anesthesia Intra-op Given 08/16/2022 8:44 AM CDT 50 mcg Lactated Ringer's (LR) infusion 30 mL/hr, intravenous, Continuous, Starting on Dilma 08/16/22 at 0745, Pre-Op Restarted 08/16/2022 8:36 AM CDT New Bag 08/16/2022 7:43 AM CDT 30 mL/hr 30 mL/hr midazolam (VERSED) 1 mg/mL preservative free injection intravenous, Administer over 2 Minutes, As needed, Starting on Dilma 08/16/22 at 0836, Anesthesia Intra-op Given 08/16/2022 8:36 AM CDT 0.5 mg documented in this encounter Care Teams Recycle Worker Relationship Specialty Start Date End Date Elpidio Serrato MD PCP - General Internal Medicine 06/09/18 documented as of this encounter
--- OUTSIDE RECORDS SUMMARY | 2024-04-29 14:08 | XMS_ITS | Encounter Summary ---
Author Organization [facility] [facility] Address [address] [place] [address] Phone Care Team Providers Care Flame Hardening Machine Setter Name Role Phone Elpidio Serrato MD Primary Care Provider [phone] Reason for Visit * Reason Comments Osteopenia * Diagnostic Imaging (Routine) - Closed Specialty Diagnoses / Procedures Referred By Contac t Referred To Contact Diagnoses Osteoporosis without current pathological fracture, unspecified osteoporosis type Procedures Dexa Axial Skeleton Bone Density 1 or 2 Site Merna Bell MD Phone: tel: fax: [facility] (All Locations) Referral ID Status Reason Start Date Expiration Date Visits Re quested Visits Authorized [id number] Closed 07/03/2022 08/02/2023 1 1 Encounter Details Date Type Department Care Team (Latest Contact Info) Description 12/03/2022 10:10 AM CDT Clinical Support [facility] [address] [place] [address] 5th [place] [address] [place] [id number] Osteopenia of multiple sites (Primary Dx); Osteoporosis without current pathological fracture, unspecified osteoporosis type; Post-menopausal Social History Tobacco Use Types Packs/Day Years [...] on file Legal Sex Female 3:59 AM FIRMWARE MANAGER Gender Identity Female 05/13/2021 4:21 PM FIRMWARE MANAGER Sexual Orientation Not on file documented as of this encounter Plan of Treatment Not on file documented as of this encounter Procedures Procedure Name Priority Date/Time Associated Diagnosis Comments DEXA AXIAL SKELETON BONE DENSITY 1 OR MORE SITES Schedule Routine, Read Routine (OP Routine) 12/03/2022 10:04 AM CDT Osteoporosis without current pathological fracture, unspecified osteoporosis type documented in this encounter Results * Dexa Axial Skeleton Bone Density 1 or 2 Site (12/03/2022 10:04 AM CDT) Anatomical Region Laterality Modality Body N/A Radiographic Lbua ging Narrative 12/04/2022 1:59 PM CDT Patient Name: Isabelle Lutz Date of : 1950 Date of scan: 12/03/2022 Bone mineral density was performed on a [employer] Discovery Densitometer. ?? Based on machine cross-calibration [...] mineral density scan were prepared by Eloisa Tamez)(Zakia)(BD) CBDT ??who is accredited by the International Society of Clinical Densitometry. The overall patient assessment and scan interpretation were performed by Payton Murphy MD who is certified by the International Society of Clinical Densitometry. [id number] us Merna Bell MD IMG DXA PROCEDURES Final Resu lt documented in this encounter Visit Diagnoses Diagnosis Osteopenia of multiple sites- Primary Osteoporosis without current pathological fracture, unspecified osteoporosis type Post-menopausal Asymptomatic postmenopausal status (age-related) (natural) documented in this encounter Care Teams Flame Hardening Machine Setter Relationship Specialty Start Date End Date Elpidio Serrato MD PCP - General Internal Medicine 06/09/18 documented as of this encounter
--- OUTSIDE RECORDS SUMMARY | 2024-04-29 14:08 | XMS_ITS | Encounter Summary ---
Author Organization [facility] Address [address] [place] [address] Phone Care Team Providers Care Chief Executive Or Managing Director Name Role Phone Elpidio Serrato MD Primary Care Provider [phone] Reason for Visit * Reason Comments Post-op Follow-up Encounter Details Date Type Department Care Team (Late st Contact Info) Description 08/17/2022 8:15 AM CDT Office Visit [facility] Ophthalmology [facility] [place] [address] Makayla Ramos MD [address] [place] [address] Primary open angle glaucoma (POAG) [...] on file Legal Sex Female 3:59 AM CARD PROCESSING CLERK Gender Identity Female 05/13/2021 4:21 PM CARD PROCESSING CLERK Sexual Orientation Not on file documented as of this encounter Progress Notes * Makayla Ramos MD - 08/17/2022 8:15 AM CDT Assessment/Plan Diagnoses and all orders for this visit: Primary open angle glaucoma (POAG) of both eyes, moderate stage (Primary) Assessment & Plan: POD1 Extraction Cataract - Phacoemulsification And Lens [...] Followup 1 week or sooner for concerns. I have seen/examined the patient and I agree with the findings/plan of the Resident/Fellow documented in this encounter Miscellaneous Notes * Assessment & Plan Note - Makayla Ramos MD - 08/17/2022 8:25 AM CDT Associated Problem(s): Primary open angle glaucoma (POAG) of both eyes, moderate stage POD1 Extraction Cataract - Phacoemulsification And Lens [...] Followup 1 week or sooner for concerns. documented in this encounter Plan of Treatment Not on file documented as of this encounter Visit Diagnoses Diagnosis Primary open angle glaucoma (POAG) of both eyes, moderate stage- Primary documented in this encounter Eye Exam Visual Acuity (Snellen - Linear) Right eye Left eye Dist sc 20/25 Tonometry (Applanation, 8:08 AM) Right eye Left eye Pressure 20 29 Neuro/Psych Oriented x3: Yes Mood/Affect: Normal External Exam Right eye Left eye External Normal Normal Slit Lamp Exam Right eye Left eye Lids/Lashes Normal Normal Conjunctiva/Sclera White and quiet trace injecti on Cornea Clear wounds sealed, 1 + D folds Anterior Chamber Deep and quiet deep, 1+ cell Iris Round and reactive Round and newton ctive Lens PCIOL PCIOL Care Teams Chief Executive Or Managing Director Relationship Specialty Start Date End Date Elpidio Serrato MD PCP - General Internal Medicine 06/09/18 documented as of this encounter
--- OUTSIDE RECORDS SUMMARY | 2024-04-29 14:08 | XMS_ITS | Encounter Summary ---
Author Organization [facility] Address [address] [place] [address] Phone Care Team Providers Care Sleep Technician Name Role Phone Elpidio Serrato MD Primary Care Provider [phone] Encounter Details Date Type Department Care Team (Late st Contact Info) Description 10/29/2023 Orders Only [facility] Endocrinology Metabolism and Lipid [address] [facility] 13th [place] [address] [place] [address] Lia Mariano, OXYGEN TANK FILLER [address] [place] [address] Hypertension, unspecified type (Primary Dx) Social History Tobacco Use Types [...] on file Legal Sex Female 3:59 AM FUSELAGE FRAMER Gender Identity Female 05/13/2021 4:21 PM FUSELAGE FRAMER Sexual Orientation Not on file documented as of this encounter Ordered Prescriptions Prescription Sig Dispense Quantity Refills Last Filled Start Date End Date atorvastatin (LIPITOR) 40 mg tablet Take 1 tablet (40 mg total) by mouth daily 90 tablet 3 10/29/2023 10/28/2024 amLODIPine (NORVASC) 5 mg tablet Take 1 tablet (5 mg total) by mouth daily 30 tablet 11 10/29/2023 11/08/2023 documented in this encounter Miscellaneous Notes * Addendum Note - Princess Hu RMA - 10/29/2023 2:12 PM CDTAddended by: PRINCESS HU on: 10/29/2023 03:24 PM Modules accepted: Orders documented in this encounter Plan of Treatment Not on file documented as of this encounter Results * (ABNORMAL) Pro B-type natriuretic peptide (10/29/2023 8:22 PM CDT) NT-proBNP 2,010(H) <=300 pg/mL Comment: Interpretive Comments: A. Dyspnea [...] Interpretive Data Last Revised Date: 2017. Blood 10/29/2023 8:22 PM CDT 10/29/2023 8:22 PM CDT Lia Mariano OXYGEN TANK FILLER LAB BLOOD ORDERABLES Phyllis l Result [facility] Department [place] [address] documented in this encounter Visit Diagnoses Diagnosis Hypertension, unspecified type- Primary documented in this encounter Discontinued Medications Medication Sig Discontinue Reason Start Date End Da te olmesartan (BENICAR) 40 mg tabletIndications:Hyperten randee, unspecified type Take 1 tablet (40 mg total) by mouth daily 12/03/2022 10/29/2023 atorvastatin (LIPITOR) 20 mg tabletIndications:Mixed hyperlipidemia TAKE 1 TABLET DAILY 03/11/2023 10/29/2023 documented as of this encounter Care Teams Sleep Technician Relationship Specialty Start Date End Date Elpidio Serrato MD PCP - General Internal Medicine 06/09/18 documented as of this encounter
--- OUTSIDE RECORDS SUMMARY | 2024-04-29 14:08 | XMS_ITS | Encounter Summary ---
Author Organization [facility] Address [address] [place] [address] Phone Care Team Providers Care Manager Category Name Role Phone Elpidio Serrato MD Primary Care Provider [phone] Reason for Visit * Reason Comments Primary open angle glaucoma (POAG) of yesy th eyes, moderate s Encounter Details Date Type Department Care Team (Late st Contact Info) Description 07/15/2023 8:45 AM FILTER BED PLACER Office Visit [facility] Ophthalmology [facility] [place] [address] Makayla Ramos MD [address] [place] [address] Primary open angle glaucoma (POAG) of both eyes, moderate stage (Primary Dx); Pseudophakia of both eyes Social History Tobacco Use Types Packs/Day Years [...] on file Legal Sex Female 3:59 AM FILTER BED PLACER Gender Identity Female 05/13/2021 4:21 PM FILTER BED PLACER Sexual Orientation Not on file documented as of this encounter Progress Notes * Makayla Ramos MD - 07/15/2023 8:45 AM CST Assessment/Plan Diagnoses and all orders for this visit: Primary open angle glaucoma (POAG) of both eyes, moderate stage (Primary) Assessment & Plan: Doing well without concerns IOP at goal Continue current drops Follow 6 months with HVf/OCT OU Pseudophakia of both eyes Assessment & Plan: Lenses doing well I have seen/examined the patient and I agree with the findings/plan of the Resident/Fellow ER BED PLACER documented in this encounter Miscellaneous Notes * Assessment & Plan Note - Makayla Ramos MD - 07/15/2023 8:54 AM FILTER BED PLACER Associated Problem(s): Primary open angle glaucoma (POAG) of both eyes, moderate stage Doing well without concerns IOP at goal Continue current drops Follow 6 months with HVf/OCT OU ER BED PLACER * Assessment & Plan Note - Makayla Ramos MD - 07/15/2023 8:54 AM FILTER BED PLACER Associated Problem(s): Pseudophakia of both eyes Lenses doing well ER BED PLACER documented in this encounter Plan of Treatment Not on file documented as of this encounter Visit Diagnoses Diagnosis Primary open angle glaucoma (POAG) of both eyes, moderate stage- Primary Pseudophakia of both eyes Lens replaced by other means documented in this encounter Eye Exam Visual Acuity (Snellen - Linear) Right eye Left eye Dist sc 20/20 -2 20/25 Tonometry (Applanation, 8:35 AM) Right eye Left eye Pressure 19 18 Pupils Dark Light Shape React APD Right eye 3 2.5 Round Minimal None Left eye 3 2.5 Round Minimal None Visual Vann (Counting fingers) Right eye Left eye Full Restrictions Partial outer garcia perior nasal deficiency Extraocular Movement Right eye Left eye Full Full Neuro/Psych Oriented x3: Yes Mood/Affect: Normal Dilation Both eyes: 1% Tropicamide, 2 .5% Phenylephrine @ 8:37 AM External Exam Right eye Left eye External Normal Normal Slit Lamp Exam Right eye Left eye Lids/Lashes Normal Normal Conjunctiva/Sclera White and quiet trace injecti on Cornea Clear Clear Anterior Chamber Deep and quiet Deep and quiet Iris Round and reactive Round and newton ctive Lens PCIOL PCIOL Anterior Vitreous Normal Normal Fundus Exam Right eye Left eye Disc thin inferior and temporal rim, PPA Thin inferiorly, superiorly with PPA C/D Ratio 0.85 0.85-9 Macula Normal Normal Vessels Normal Normal Periphery Normal Normal Care Teams Manager Category Relationship Specialty Start Date End Date Elpidio Serrato MD PCP - General Internal Medicine 06/09/18 documented as of this encounter
--- OUTSIDE RECORDS SUMMARY | 2024-04-29 14:08 | XMS_ITS | Encounter Summary ---
Author Organization [facility] Address [address] [place] [address] Phone Care Team Providers Care Juice Scaleman Name Role Phone Elpidio Serrato MD Primary Care Provider [phone] Encounter Details Date Type Department Care Team (Late st Contact Info) Description 08/26/2023 Orders Only [facility] Endocrinology Metabolism and Lipid [address] [facility] 13th [place] [address] [place] [address] Shirley Mcdonnell, RMA [address] [place] [address] Social History Tobacco Use Types Packs/Day Years [...] on file Legal Sex Female 3:59 AM SLIMER Gender Identity Female 05/13/2021 4:21 PM SLIMER Sexual Orientation Not on file documented as of this encounter Ordered Prescriptions Prescription Sig Dispense Quantity Refills Last Filled Start Date End Date ergocalciferol (VITAMIN D) 50,000 unit capsule TAKE 1 CAPSULE BY MOUTH ONCE WEEKLY 12 capsule 1 08/26/2023 4 documented in this encounter Plan of Treatment Not on file documented as of this encounter Visit Diagnoses Not on filedocumented in this encounter Discontinued Medications Medication Sig Discontinue Reason Start Date End Da te ergocalciferol (VITAMIN D) 50,000 unit capsule TAKE 1 CAPSULE BY MOUTH ONCE WEEKLY Reorder 05/03/2023 08/26/2023 documented as of this encounter Care Teams Juice Scaleman Relationship Specialty Start Date End Date Elpidio Serrato MD PCP - General Internal Medicine 06/09/18 documented as of this encounter
--- OUTSIDE RECORDS SUMMARY | 2024-04-29 14:08 | XMS_ITS | Encounter Summary ---
Author Organization [facility] Address [address] [place] [address] Phone Care Team Providers Care Javascript Engineer Name Role Phone Elpidio Serrato MD Primary Care Provider [phone] Reason for Referral * Diagnostic Imaging (Routine) - Pending Review Specialty Diagnoses / Procedures Referred By Contac t Referred To Contact Diagnoses Primary open angle glaucoma (POAG) of both eyes, moderate stage Procedures Forrest Visual Field - OU - Both Eyes Makayla Ramos MD [address] [place] [address] Phone: tel: fax: [facility] (All Locations) Referral ID Status Reason Start Date Expiration Date V isits Requested Visits Authorized [id number] Pending Review 07/31/2023 08/29/2024 1 1 * Diagnostic Imaging (Routine) - Pending Review Specialty Diagnoses / Procedures Referred By Contac t Referred To Contact Diagnoses Primary open angle glaucoma (POAG) of both eyes, moderate stage Procedures OCT, Optic Nerve - OU - Both Eyes Makayla Ramos MD [address] [place] [address] Phone: tel: fax: [facility] (All Locations) Referral ID Status Reason Start Date Expiration Date V isits Requested Visits Authorized [id number] Pending Review 07/31/2023 08/29/2024 1 1 Encounter Details Date Type Department Care Team (Late st Contact Info) Description 07/31/[address] [facility] Ophthalmology [address] [place] [address] Makayla Ramos MD [address] [place] [address] Primary open angle glaucoma (POAG) of both [...] on file Legal Sex Female 3:59 AM SECURITY PROGRAM MANAGER Gender Identity Female 05/13/2021 4:21 PM SECURITY PROGRAM MANAGER Sexual Orientation Not on file documented as of this encounter Plan of Treatment Scheduled Orders Name Type Priority Associated Diagnoses Orde r Schedule OCT, Optic Nerve - OU - Both Eyes Ophthalmology Routine Primary open angle glaucoma (POAG) of both eyes, moderate stage Expected: 07/30/2024, Expires: 07/30/2024 Forrest Visual Field - OU - Both Eyes Ophthalmology Routine Primary open angle glaucoma (POAG) of both eyes, moderate stage Expected: 07/30/2024, Expires: 07/30/2024 documented as of this encounter Visit Diagnoses Diagnosis Primary open angle glaucoma (POAG) of both eyes, moderate stage- Primary documented in this encounter Care Teams Javascript Engineer Relationship Specialty Start Date End Date Elpidio Serrato MD PCP - General Internal Medicine 06/09/18 documented as of this encounter
--- OUTSIDE RECORDS SUMMARY | 2024-04-29 14:08 | XMS_ITS | Encounter Summary ---
Author Organization [facility] Address [address] [place] [address] Phone Care Team Providers Care Golf Ball Marker Name Role Phone Elpidio Serrato MD Primary Care Provider [phone] Encounter Details Date Type Department Care Team (Late st Contact Info) Description 10/29/2023 9:30 AM CDT Lab [facility] Endocrinology Metabolism and Lipid [address] [place] [address] [place] [address] Type 2 diabetes mellitus with hyperlipidemia (HCC); Vitamin D deficiency; Acquired hypothyroidism Social History Tobacco Use Types Packs/Day Years [...] on file Legal Sex Female 3:59 AM STAFF DESIGN ENGINEER Gender Identity Female 05/13/2021 4:21 PM STAFF DESIGN ENGINEER Sexual Orientation Not on file documented as of this encounter Miscellaneous Notes * Result Encounter Note - Lia Mariano NP - 10/29/2023 2:11 PM CDT I called pt re: labs with decreased renal function and elevated potassium. She will stop olmasartan. Begin amlodipine 5mg daily in place. Rx sent. She will return for f/u appt in 2-3 weeks for BP check and repeat labs. She will increase atorvastatin to 40mg daily with goal of lowering LDL from 92 to < 70. Continue all other medications. documented in this encounter Plan of Treatment Not on file documented as of this encounter Procedures Procedure Name Priority Date/Time Associated Diagnosis Comments CBC WITH AUTO DIFFERENTIAL Routine 10/29/2023 9:30 AM CDT Type 2 diabetes mellitus with hyperlipidemia (HCC) ALBUMIN CREATININE RATIO, URINE Routine 10/29/2023 9:30 AM CDT Type 2 diabetes mellitus with hyperlipidemia (HCC) VITAMIN D 25 HYDROXY Routine 10/29/2023 9:30 AM CDT Type 2 diabetes mellitus with hyperlipidemia (HCC) Vitamin D deficiency TSH Routine 10/29/2023 9:30 AM CDT Type 2 diabetes mellitus with hyperlipidemia (HCC) Acquired hypothyroidism T4, FREE Routine 10/29/2023 9:30 AM CDT Type 2 diabetes mellitus with hyperlipidemia (HCC) Acquired hypothyroidism LIPID PANEL Routine 10/29/2023 9:30 AM CDT Type 2 diabetes mellitus with hyperlipidemia (HCC) COMPREHENSIVE METABOLIC PANEL Routine 10/29/2023 9:30 AM CDT Type 2 diabetes mellitus with hyperlipidemia (HCC) documented in this encounter Results * Albumin Creatinine Ratio, Urine (10/29/2023 9:30 AM CDT) Microalb, Ur 7.9 0.0 - 22.9 mg/L [facility] Random Urine Creatinine 109.6 mg/dL [facility] Microalb/Creat Ratio 7.2 0.0 - 29.9 mg/g [facility] Urine 10/29/2023 9:30 AM CDT 10/29/2023 11:19 AM CDT Lia Mariano JUSTOWRITER OPERATOR LAB URINE ORDERABLES Phyllis l Result Performing Organization Address [facility] Co de Phone Number [facility] * (ABNORMAL) Lipid panel (10/29/2023 9:30 AM CDT) Triglycerides 101 <150 mg/dL [facility] Comment: Desirable: <150 mg/dL, fasting <175 mg/dL, non-fasting Persistently elevated triglycerides may enhance atherosclerotic cardiovascular disease. Total Cholesterol 158 <200 mg/dL [facility] Total HDL-C Direct 46(L) >50 mg/dL [facility] Comment: A low HDL-C may be inidcative of metabolic syndrome and enhance atherosclerotic cardiovascular disease risk. Non-HDL cholesterol 112 <220 mg/dL [facility] [place] LDL Chol 92 <190 mg/dL [facility] Blood 10/29/2023 9:30 AM CDT 10/29/2023 11:19 AM CDT Narrative [facility] - 10/29/2023 1:02 [...] to getting your blood drawn. Lia Mariano NP LAB BLOOD ORDERABLES Phyllis l Result Performing Organization Address City/[facility]/ZIP Co de Phone Number [facility] * T4, free (10/29/2023 9:30 AM CDT) Free T4 1.38 0.80 - 1.80 ng/dL [facility] Blood 10/29/2023 9:30 AM CDT 10/29/2023 11:19 AM CDT Lia Mariano JUSTOWRITER OPERATOR LAB BLOOD ORDERABLES Phyllis l Result [facility] * TSH (10/29/2023 9:30 AM CDT) Pathologist [facility] TSH (Thyrotropin) 0.69 0.27 - 4.20 uIU/mL [facility] Blood 10/29/2023 9:30 AM CDT 10/29/2023 11:19 AM CDT Lia Mariano JUSTOWRITER OPERATOR LAB BLOOD ORDERABLES Phyllis l Result Performing Organization Address [facility] de Phone Number [facility] * CBC [...] CDT 10/29/2023 11:19 AM CDT Lia Mariano JUSTOWRITER OPERATOR LAB BLOOD ORDERABLES Phyllis l Result [facility] [...] CDT 10/29/2023 11:19 AM CDT Lia Mariano JUSTOWRITER OPERATOR LAB BLOOD ORDERABLES Phyllis l Result [facility] * Vitamin D 25 hydroxy (10/29/2023 9:30 AM CDT) Pathologist [facility] Vitamin D 83.0 20.0 - 100.0 ng/mL [facility] Comment: VITAMIN D DEFICIENCY = LESS THAN or EQUAL TO 20 ng/mL VITAMIN D INSUFFICIENCY = 21 - 29 ng/mL VITAMIN D SUFFICIENT = 30-100 ng/mL Blood 10/29/2023 9:30 AM CDT 10/29/2023 11:19 AM CDT Lia Mariano JUSTOWRITER OPERATOR LAB BLOOD ORDERABLES Phyllis l Result [facility] documented in this encounter Visit Diagnoses Diagnosis Type 2 diabetes mellitus with hyperlipidemia (HCC) Vitamin D deficiency Acquired hypothyroidism Unspecified hypothyroidism documented in this encounter Care Teams Golf Ball Marker Relationship Specialty Start Date End Date Elpidio Serrato MD PCP - General Internal Medicine 06/09/18 documented as of this encounter
--- OUTSIDE RECORDS SUMMARY | 2024-04-29 14:08 | XMS_ITS | Encounter Summary ---
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, with long-term current use of insulin, unspecified laterality (HCC) Social History Tobacco Use Types Packs/Day [...] on file Legal Sex Female 3:59 AM TOOLROOM HELPER Gender Identity Female 05/13/2021 4:21 PM TOOLROOM HELPER Sexual Orientation Not on file documented as of this encounter Plan of Treatment Not on file documented as of this encounter Procedures Procedure Name Priority Date/Time Associated Diagnosis Comments THYROID FUNCTION CASCADE Routine 04/29/2023 8:58 AM TOOLROOM HELPER 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, with long-term current use of insulin, unspecified laterality (HCC) CBC WITH AUTO DIFFERENTIAL Routine 04/29/2023 8:58 AM TOOLROOM HELPER 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, with long-term current use of insulin, unspecified laterality (HCC) ALBUMIN CREATININE RATIO, URINE Routine 04/29/2023 8:58 AM TOOLROOM HELPER 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, with long-term current use of insulin, unspecified laterality (HCC) VITAMIN D 25 HYDROXY Routine 04/29/2023 8:58 AM TOOLROOM HELPER Vitamin D deficiency LIPID PANEL Routine 04/29/2023 8:58 AM TOOLROOM HELPER 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, with long-term current use of insulin, unspecified laterality (HCC) COMPREHENSIVE METABOLIC PANEL Routine 04/29/2023 8:58 AM TOOLROOM HELPER 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, with long-term current use of insulin, unspecified laterality (HCC) documented in this encounter Results * (ABNORMAL) CBC with auto differential (04/29/2023 8:58 AM TOOLROOM HELPER) White Blood Count 8.9 3.6 - 11.2 [...] [facility] Blood 04/29/2023 8:58 AM TOOLROOM HELPER 04/29/2023 10:20 AM TOOLROOM HELPER us Merna Bell MD LAB BLOOD ORDERABLES Final Re sult [facility] * (ABNORMAL) Comprehensive metabolic panel (04/29/2023 8:58 AM TOOLROOM HELPER) Total Protein 6.9 6.1 - 8.4 g/dL [...] [facility] Blood 04/29/2023 8:58 AM TOOLROOM HELPER 04/29/2023 10:20 AM TOOLROOM HELPER Merna Bell MD LAB BLOOD ORDERABLES Final Re sult Performing Organization Address [facility] Co de Phone Number [facility] * TSH reflex to free T4 (04/29/2023 8:58 AM TOOLROOM HELPER) TSH (Thyrotropin) 1.65 0.27 - 4.20 uIU/mL [facility] Blood 04/29/2023 8:58 AM TOOLROOM HELPER 04/29/2023 10:20 AM TOOLROOM HELPER Merna Bell MD LAB BLOOD ORDERABLES Final Re sult [facility] * (ABNORMAL) Lipid panel (04/29/2023 8:58 AM TOOLROOM HELPER) Triglycerides 147 <150 mg/dL [facility] [...] [facility] Blood 04/29/2023 8:58 AM TOOLROOM HELPER 04/29/2023 10:20 AM TOOLROOM HELPER Narrative [facility] - 04/29/2023 1:02 PM TOOLROOM HELPER Current interpretive data was last updated April 14, 2021. For adults ages 40-79, the ACC/AHA recommends discussing your 10-year atherosclerotic cardiovascular disease risk with your health care provider. ??https://www.acc.org/ASCVDApp Merna Bell MD LAB BLOOD ORDERABLES Final Re sult [facility] * Albumin Creatinine Ratio, Urine (04/29/2023 8:58 AM TOOLROOM HELPER) Microalb, Ur 8.7 0.0 - 22.9 mg/L [facility] Comment:Repeated and Verifie d Random Urine Creatinine 103.8 mg/dL [facility] Microalb/Creat Ratio 8.4 0.0 - 29.9 mg/g [facility] Urine 04/29/2023 8:58 AM TOOLROOM HELPER 04/29/2023 10:20 AM TOOLROOM HELPER Merna Bell MD LAB URINE ORDERABLES Final Re sult [facility] * Vitamin D 25 hydroxy (04/29/2023 8:58 AM TOOLROOM HELPER) Vitamin D 74.6 20.0 - 100.0 ng/mL [facility] Comment: VITAMIN D DEFICIENCY = LESS THAN or EQUAL TO 20 ng/mL VITAMIN D INSUFFICIENCY = 21 - 29 ng/mL VITAMIN D SUFFICIENT = 30-100 ng/mL Blood 04/29/2023 8:58 AM TOOLROOM HELPER 04/29/2023 10:20 AM TOOLROOM HELPER us Merna Bell MD LAB BLOOD ORDERABLES Final Re sult [facility] documented in this encounter Visit Diagnoses Diagnosis Vitamin D deficiency 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
--- OUTSIDE RECORDS SUMMARY | 2024-04-29 14:08 | XMS_ITS | Encounter Summary ---
Author Organization [facility] Address [address] [place] [address] Phone Care Team Providers Care Director Of Community Life Name Role Phone Elpidio Serrato MD Primary Care Provider [phone] Reason for Visit * Reason Onset Date Comments 08/16/2022 Surgery 08/08/2022 Encounter Details Date Type Department Care Team (Late st Contact Info) Description 08/08/2022 Telephone [facility] Ophthalmology [address], [address] [place] [address] Geovanna Doe COA 08/16/2022 Surgery Social History Tobacco Use Types Packs/Day Years [...] on file Legal Sex Female 3:59 AM END FINDER FORMING DEPARTMENT Gender Identity Female 05/13/2021 4:21 PM END FINDER FORMING DEPARTMENT Sexual Orientation Not on file documented as of this encounter Miscellaneous Notes * Telephone Encounter - Geovanna Doe COA - 08/15/2022 9:15 AM CDT Spoke to patient and gave all surgery details for surgery scheduled on 08/16/[address] Ramos Arrival time: 7:00am Surgery is at [facility] on the 4th floor. Remember; nothing to eat or drink after midnight the night before and make sure they have a construction driver to drive them home (family member or friend). For the patient's safety, Uber/Taxis are not acceptable transportation after discharge. Address: [facility], 4th floor surgery center. [address] [place] [address] * Telephone Encounter - Geovanna Doe COA - 08/08/2022 3:21 PM CDT Phoned patient to schedule surgery: Discussed surgery date: 08/16/2022 Location: [facility] [x] [facility] [] Plan from notes: CEIOL/goniotomy OS 45 minutes, MAC Allergies: Allergies Allergen Reactions Pseudoephedrine Other (See comments) and Palpitations Reaction: UNKNOWN, Valacyclovir Other (See comments) put me in renal failure Ascan:[x] yes [] no Second eye (order added) and release [x] Order IOL: [x] Sent through system for [facility] Postop appointment: [x] Prep for case: [x] Letter mailed: [x] Prior auth: [x] No PA needed documented in this encounter Plan of Treatment Not on file documented as of this encounter Visit Diagnoses Not on filedocumented in this encounter Care Teams Director Of Community Life Relationship Specialty Start Date End Date Elpidio Serrato MD PCP - General Internal Medicine 06/09/18 documented as of this encounter
--- OUTSIDE RECORDS SUMMARY | 2024-04-29 14:08 | XMS_ITS | Encounter Summary ---
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 Sexual Orientation Not on file documented as [...] times a day 15 mL 3 3 pen needle, diabetic (BD Ultra-Fine Hailee Pen Needle) 32 gauge x 5/32 needleIndications: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, with long-term current use of insulin, unspecified laterality (HCC) Use 4X daily 300 each 3 3 amLODIPine (NORVASC) 5 mg tablet Take 1 tablet (5 mg total) by mouth daily 30 tablet 11 4 11/08/19 24 celecoxib (CeleBREX) 200 mg capsule TAKE 1 CAPSULE DAILY 90 capsule 3 3 11/16/19 24 empagliflozin (Jardiance) 10 mg tabletIndications:Typ e 2 diabetes mellitus (HCC) Take 1 tablet (10 mg total) by mouth daily 90 tablet 3 3 01/28/20 24 ergocalciferol (VITAMIN D) 50,000 unit capsule TAKE 1 CAPSULE BY MOUTH ONCE WEEKLY 12 capsule 1 4 03/30/20 24 insulin aspart (NovoLOG) 100 unit/mL (3 [...] before meals Plus sliding scale 01/28/20 24 latanoprost (XALATAN) 0.005 % ophthalmic solutionIndications:o pen angle glaucoma Administer 1 drop into both eyes nightly 7.5 mL 3 3 11/11/19 24 levothyroxine (SYNTHROID) 88 mcg tablet TAKE [...] or self care documented in this encounter Miscellaneous Notes * Result Encounter Note - Lia Mariano NP - 10/29/2023 11:59 PM CDT Left VM on mobile for pt: Your proBNP is high. This reflects your fluid volume and suggests your symptoms are associated with heart failure. To improve your symptoms, please begin furosemide 20mg daily (also known as Lasix). Take in the morning. I will send your recent labs to Dr Awad. I recommend you have the echo completed sooner than 01/2024. If you are unable to move this forward, let me know and I will get it scheduled here sooner. Please return as discussed in 2-3 weeks for follow up with repeat BP check and labs. documented in this encounter Plan of Treatment Not on file documented as of this encounter Procedures Procedure Name Priority Date/Time Associated Diagnosis Comments PRO B-TYPE NATRIURETIC PEPTIDE Routine 10/29/2023 8:22 PM CDT Hypertension, unspecified type documented in this encounter Results [...] 8:22 PM CDT 10/29/2023 8:22 PM CDT us Lia Mariano SEAPORT PLANNING MANAGER LAB BLOOD ORDERABLES Phyllis alanis Result Performing Organization Address City/State/[facility] Co de Phone Number [facility] Department [place] [address] documented in this encounter Visit Diagnoses Diagnosis Hypertension, unspecified type documented in this encounter Care Teams Coding Quality Analyst Relationship Specialty Start Date End Date Elpidio Serrato MD PCP - General Internal Medicine 06/09/18 documented as of this encounter
--- OUTSIDE RECORDS SUMMARY | 2024-04-29 14:09 | XMS_ITS | Encounter Summary ---
Author Organization [facility] Healthcare Address [address] [place] [address] Care Team Providers Care Electronic Assembly Name Role Phone Elpidio Serrato MD Primary Care Provider [phone] Reason for Visit * Auth/Cert Specialty Diagnoses / Procedures Referred By Contac t Referred To Contact Diagnoses Nuclear sclerotic cataract of both eyes Primary open angle glaucoma of both eyes, moderate stage Nuclear sclerotic cataract of both eyes [H25.13] Primary open angle glaucoma of both eyes, moderate stage [H40.1132] Procedures NJ XCAPSL CTRC RMVL INSJ IO LENS PROSTH W/O ECP NJ GONIOTOMY EXTRACTION CATARACT - PHACOEMULSIFICATION AND LENS IMPLANT - right eye GONIOTOMY - right eye Referral ID Status Reason Start Date Expiration Date Visits Re quested Visits Authorized [id number] 1 1 Encounter Details Date Type Department Care Team (Latest Contact Info) Description 06/14/2022 7:55 AM BUTCHER APPRENTICE - 06/14/2022 10:[address] [facility] Hospital Encounter [facility] Operating Room [facility] [address] [place] [address] Makayla Ramos MD [facility] [place] [address] Discharge Disposition: Discharge to home or self care Social History Tobacco Use Types Packs/Day Years Used Date Smoking Tobacco: Never Smokeless Tobacco: Never Tobacco Cessation:Counseling Given: Not Answered AUDIT-C Answer Date Recorded Frequency of Alcohol Consumption Not on file 05/30/2022 Q2: How many drinks containi ng alcohol do you have on a typical day when you are drinking? Patient does not drink 3 Frequency of Binge Drinking Not on file 05/13 Comments Unknown Sex and Gender Information Value Date Recorded Sex Assigned at Not on file Legal Sex Female 3:59 AM BUTCHER APPRENTICE Gender Identity Female 05/13/2021 4:21 PM BUTCHER APPRENTICE Sexual Orientation Not on file documented as of this encounter Last Filed Vital Signs Vital Sign Reading Time Taken Comments Blood Pressure 115/43 06/14/2022 10:40 AM BUTCHER APPRENTICE Pulse 72 06/14/2022 10:40 AM BUTCHER APPRENTICE Temperature 36 ??C (96.8 ??F) 06/14/2022 9:40 AM BUTCHER APPRENTICE Respiratory Rate 18 06/14/2022 10:40 AM BUTCHER APPRENTICE Oxygen Saturation 96% 06/14/2022 10:40 AM BUTCHER APPRENTICE Inhaled Oxygen Concentration - - Weight 99.8 kg (220 lb) 05/30/2022 1:55 PM BUTCHER APPRENTICE Height 152.4 cm (5') 05/30/2022 1:55 PM BUTCHER APPRENTICE Body Mass Index 42.97 05/30/2022 1:55 PM BUTCHER APPRENTICE documented in this encounter Discharge Instructions * Discharge Instructions* Makayla Ramos MD - 06/14/2022 9:38 AM BUTCHER APPRENTICE Eye Surgery Post-Op Instructions Your surgeon???s name: [...] your vision Whom to call with concerns: [phone] - [facility] or [phone] - [facility] If after hours, listen to the voicemail for instructions for contacting the [facility] outpatient receptionist. Thank you for entrusting us with your eye care. HER APPRENTICE * Attachments The following attachments cannot be sent through Care Everywhere. * [facility] PATHWAY TO EXCELLENT CARE AFTER SURGERY documented in this encounter Medications at Time of Discharge aspirin 81 mg enteric coated tabletIndications:pr evention [...] day 10 mL 11 1 02/12/20 23 CALCIUM ORALIndications:supp lement Take 2 tablets by mouth every morning 08/04/19 23 celecoxib (CeleBREX) 200 mg capsule TAKE 1 CAPSULE DAILY. 90 capsule 3 2 12/05/19 23 ergocalciferol (VITAMIN D) 50,000 unit capsule TAKE 1 CAPSULE BY MOUTH ONCE WEEKLY 12 capsule 2 07/21/19 23 HUMALOG KWIKPEN INSULIN 100 unit/mL insulin pen INJECT 10 UNITS SUBCUTANEOUSLY AT BREAKFAST, 8 TO 12 UNITS AT LUNCH, AND 5 UNITS WITH SNACKS 45 mL 3 9 12/04/19 23 Jardiance 10 mg tabletIndications:Ty pe 2 diabetes mellitus (HCC) TAKE 1 TABLET DAILY 90 tablet 3 2 12/04/19 23 LANTUS 100 unit/mL (3 mL) pen for injection INJECT 48 UNITS SUBCUTANEOUSLY DAILY 45 mL 2 2 06/22/19 23 latanoprost (XALATAN) 0.005 % ophthalmic solutionIndications: [...] right eye 4 (four) times a day 5 mL 3 08/04/19 23 olmesartan-hydrochlo rothiazide (BENICAR HCT) 40-12.5 mg per tabletIndications:Ty 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 To decrease inflammation. 5 mL 3 08/04/19 23 documented as of this encounter Ordered Prescriptions Prescription Sig Dispense Quantity Refills Last Filled Start Date End Date moxifloxacin (VIGAMOX) 0.5 % ophthalmic solution Administer 1 drop into the right eye 4 (four) times a day 5 mL 06/14/2022 3 prednisoLONE acetate (PRED FORTE) 1 % ophthalmic suspension Administer 1 drop into the right eye 4 (four) times a day 4 times daily (when you wake up, lunch, dinner, bedtime). To decrease inflammation. 5 mL 06/14/2022 3 documented in this encounter Discharge Disposition Disposition Code Departure Means Destination Discharge to home or self care documented in this encounter H&P Notes * Makayla Ramos MD - 06/14/2022 8:07 AM CST I have reviewed the H&P, examined the patient, and endorse the findings as written. Plan of Care : Based on the above findings, I consider Isabelle Lutz to be an acceptable risk for: Procedure(s): EXTRACTION CATARACT - PHACOEMULSIFICATION AND LENS IMPLANT - right eye GONIOTOMY - right eye HER APPRENTICE Source Note - Griselda Bang NP - 05/31/2022 8:25 AM BUTCHER APPRENTICE Images from the original note were not included. Center for Preoperative Assessment and Planning Preoperative Evaluation Record Evaluation type/location: TPAP from [facility] Planned procedure site: [facility] OR (Pod 4) Date: 05/31/22 NOTE: This note represents a preoperative evaluation initiated via telephone interview. NO PHYSICALEXAM was performed at the time of initial assessment. A physical exam may be added to this note anddocumented below. Anesthesia Evaluation Isabelle Lutz is a 72 y.o. female Procedure(s): EXTRACTION CATARACT - PHACOEMULSIFICATION AND LENS IMPLANT - right eye GONIOTOMY - right eye Pre-Op Diagnosis Codes: * Nuclear sclerotic cataract of both eyes [H25.13] * Primary open angle glaucoma of both eyes, moderate stage [H40.1132] HISTORY HPI 72 year old female with bilateral cataracts scheduled for cataract extraction and lenses implant Past Medical History Information obtained from: patient and chart. Neurological Pertinent negatives: neuromuscular disease; CVA/stroke and TIA Cardiovascular Pertinent negatives: hypertension ; CAD ; [place] ; CABG ; valvular heart disease; atrial fibrillation; pacemaker/ICD; DVT/PE; negative for CHF; drug-eluting stent(s) and bare metal stent(s) Respiratory Pertinent negatives: COPD; sleep apnea (LEÓN); pulmonary hypertension; no O2 use outside the hospital and non-smoker Hepatic / Heme Pertinent negatives: liver disease and history of anemia Gastrointestinal Pertinent negatives: GERD Renal / + Renal disease - ARF / CKD Pertinent negatives: dialysis and nephrolithiasis Musculoskeletal/Pain + Osteoarthritis Pertinent negatives: chronic pain; previous treatment for opioid use disorder and headaches Endocrine / Other + Diabetes mellitus - Diabetes type 2. Outpatient insulin use: current. Pt reported HgA1c: 5.9. Pt reported HgA1c date: 10/2021. + Thyroid disease - hypothyroidism + Obesity (BMI >30)- morbid obesity (BMI>40). + Eye disorder - glaucoma. Pertinent negatives: cancer history; rheumatological disease; transplanted organ; infectious disease and pancreatitis Functional Capacity Functional capacity: 4-6 METs Comments: Patient is able to climb 2 flights of stairs at a moderate pace without SOB or CP. Review of Systems Pertinent negatives: productive cough; [...] provided by telephone and electronically sent via [facility]. Patient verbalized understanding of preoperative plan. Blood bank needs for day of procedure: No type and screen needed Pending labs/tests include: POC Glucose The patient is on aspirin therapy for primary prevention. The bleeding risk for the planned procedure is insignificant and therefore aspirin can be continued throughout the periprocedural period. Please call the CPAP chart room clinician ([phone]) with any questions. TPAP complete Preoperative evaluation performed by Griselda Bang NP on 05/31/22 at 8:36 AM. Patient Active Problem List Diagnosis ??? Actinic [...] Past Surgical History: Procedure Laterality Date ??? NJ APPENDECTOMY unkown dates per pt ??? NJ DELIVERY ONLY Section - in 1972 and 1975 (Added by TW Conv) ??? NJ TENDON SHEATH INCISION Hand Incision Tendon Sheath Of A Finger - right hand, III finger, 08/20 (Added by [place] Conv) OB History No obstetric history on file. Allergies Allergen Reactions ??? Pseudoephedrine Other (See comments) and Palpitations Reaction: UNKNOWN, ??? Valacyclovir Other (See comments) put me in renal failure Med List Status: Nurse Complete Set By: Katie Nicolas RN at 05/30/2022 1:51 PM Taking? Last Dose Start Date End Date Provider aspirin 81 mg enteric coated tablet 05/30/2022 -- -- Aldair Prescott MD atorvastatin (LIPITOR) 20 mg tablet 05/30/2022 12/14/21 -- Merna Bell MD TAKE 1 TABLET DAILY Patient taking differently: Take 20 mg by mouth every morning blood glucose diagnostic (glucose blood) strip -- 10/16/18 -- Merna Bell MD Testing once daily brimonidine-timoloL (Combigan) 0.2-0.5 % ophthalmic solution 05/30/2022 06/08/20 -- Makayla Ramos MD Administer 1 drop into both eyes 2 (two) times a day Patient taking differently: Administer 1 drop into both eyes 2 (two) times a day Notes: 90 day supply [place] CALCIUM ORAL 05/30/2022 -- -- Aldair Prescott MD celecoxib (CeleBREX) 200 mg capsule 05/30/2022 09/19/21 -- Merna Bell MD TAKE 1 CAPSULE DAILY. Patient taking differently: Take 200 mg by mouth 2 (two) times a day ergocalciferol (VITAMIN D) 50,000 unit capsule Past Week 04/01/22 -- Merna Bell MD TAKE 1 CAPSULE BY MOUTH ONCE WEEKLY Patient taking differently: Take 50,000 Units by mouth once a week TAKE 1 CAPSULE BY MOUTH ONCE WEEKLY HUMALOG KWIKPEN INSULIN 100 unit/mL insulin pen 05/30/2022 04/27/19 -- Merna Bell MD INJECT 10 UNITS SUBCUTANEOUSLY AT BREAKFAST, 8 TO 12 UNITS AT LUNCH, AND 5 UNITS WITH SNACKS Patient taking differently: No sig reported Jardiance 10 mg tablet 05/30/2022 12/14/21 -- Merna Bell MD TAKE 1 TABLET DAILY Patient taking differently: Take 10 mg by mouth every morning LANTUS 100 unit/mL (3 mL) pen for injection 05/30/2022 07/10/21 -- Merna Bell MD INJECT 48 UNITS SUBCUTANEOUSLY DAILY Patient taking differently: 40 Units every morning latanoprost (XALATAN) 0.005 % ophthalmic solution 05/29/2022 11/02/21 -- Makayla Ramos MD INSTILL 1 DROP INTO BOTH EYES NIGHTLY Patient taking differently: Administer 1 drop into both eyes nightly Notes: DX Code Needed / H40.1132 / 90 day supply is OK if authorized by insurance and patient prefers. / Please advise patient she needs to schedule a follow up for further refills. Thank you. levothyroxine (SYNTHROID) 88 mcg tablet 05/30/2022 04/20/22 -- Merna Bell MD Take 1 tablet (88 mcg total) by mouth daily Patient taking differently: Take 88 mcg by mouth early intervention school psychologist before breakfast metFORMIN (GLUCOPHAGE) 500 mg tablet 05/30/2022 03/07/21 -- Merna Bell MD TAKE 1 TABLET BY MOUTH TWICE A DAY Patient taking differently: Take 500 mg by mouth daily with breakfast olmesartan-hydrochlorothiazide (BENICAR HCT) 40-12.5 mg per tablet 05/30/2022 09/06/21 -- Merna Bell MD TAKE 1 TABLET BY MOUTH EVERY DAY Patient taking differently: Take 1 tablet by mouth every morning Ozempic 1 mg/dose (4 mg/3 mL) pen injector injection Past Week 12/14/21 -- Merna Bell MD INJECT 1MG SUBCUTANEOUSLY ONCE A WEEK. Patient taking differently: Inject 1 mg under the skin pen needle, diabetic (BD ULTRA-FINE WENDY PEN NEEDLE) 32 gauge x 5/32 needle -- 06/16/18 -- Merna Bell MD Use 4X daily No current facility-administered medications for this encounter. Current Outpatient Medications: ??? aspirin 81 mg enteric coated tablet ??? atorvastatin (LIPITOR) 20 mg tablet ??? brimonidine-timoloL (Combigan) 0.2-0.5 % ophthalmic solution ??? CALCIUM ORAL ??? celecoxib (CeleBREX) 200 mg capsule ??? ergocalciferol (VITAMIN D) 50,000 unit capsule ??? HUMALOG KWIKPEN INSULIN 100 unit/mL insulin pen ??? Jardiance 10 mg tablet ??? LANTUS 100 unit/mL (3 mL) pen for injection ??? latanoprost (XALATAN) 0.005 % ophthalmic solution [...] Status Never Smokeless Tobacco Never Alcohol Use: Unknown ??? Frequency of Alcohol Consumption: Not on file ??? Average Number of Drinks: Patient does not drink ??? Frequency of Binge Drinking: Not on file Substance and Sexual Activity Drug Use Never [...] last 720 hours. Kathrin index score: 100 HER APPRENTICE documented in this encounter Miscellaneous Notes * Op Note - Makayla Ramos MD - 06/14/2022 9:24 AM CST DATE: 06/14/2022 PREOPERATIVE DIAGNOSIS: 1) Primary open angle glaucoma right eye. 2) Visually significant nuclear sclerotic cataract of right eye. POSTOPERATIVE DIAGNOSIS: same OPERATION PERFORMED: Phacoemulsification with intraocular lens implant and ab interno goniotomy right eye. SURGEON: Makayla Ramos MD KENNEL SUPERVISOR: none Implants: Implant Name Type Inv. Item Serial No. Independent Contractor Lot No. LRB No. Used Action [employer] LENS IOL POSTERIOR BICONVEX OPTIC SINGLE PIECE ENVISTA 6.0X12.5 +18.0D HYDROPHOBIC ACRYLIC [id number] - [id number] - [id number] Lens [employer] Lens Iol PosteriorBiconvex Optic Single Piece Envista 6.0x12.5 +18.0d Hydrophobic Acrylic [id number] [employer] Right 1 Implanted ANESTHESIA: MAC with Local INDICATIONS [...] None CONDITION ON DISCHARGE FROM OPERATING ROOM:stable HER APPRENTICE * Perioperative Nursing Note - Fabi Mathews RN - 06/14/2022 9:18 AM BUTCHER APPRENTICE Intraocular lens implant ordered and verified per surgeon prior to implantation HER APPRENTICE * Pre-Procedure Instructions - Griselda Bang NP - 05/31/2022 8:20 AM CST [facility] for Preoperative Assessment and Planning CPAP Clinic Location: [facility] The night before your surgery: * [...] on the day of surgery * If you are going to be admitted after surgery at [facility], COVID testing may be performed on the day of surgery, even if you are up to date on your COVID-19 vaccine. * If having surgery at [facility], you may want to bring a credit card if you want to use our Mobile Pharmacy for your discharge medications. Mobile pharmacy is not available at [facility], the [facility], or the [place] [facility]. Outpatient Surgery: * You must have a [...] hospital overnight. If you have Diabetes: * Your diabetic medicines may change if you are doing a bowel prep before surgery. * Do not take any of your diabetic pills while you are doing a bowel prep. * You may also need less insulin [...] For Your Medications: Pre-Surgery Instructions: Medication Instructions aspirin 81 mg enteric coated tablet Don't take on day of surgery atorvastatin (LIPITOR) 20 mg tablet Take morning of surgery brimonidine-timoloL (Combigan) 0.2-0.5 % ophthalmic solution Per surgeons instructions CALCIUM ORAL Don't take on day of surgery celecoxib (CeleBREX) 200 mg capsule Don't take on day of surgery ergocalciferol (VITAMIN D) 50,000 unit capsule Don't take on day of surgery HUMALOG KWIKPEN INSULIN 100 unit/mL insulin pen Don't take on day of surgery Jardiance 10 mg tablet Don't take on day of surgery LANTUS 100 unit/mL (3 mL) pen for injection Take 30 units prior to surgery latanoprost (XALATAN) 0.005 % ophthalmic solution Per surgeons instructions levothyroxine (SYNTHROID) 88 mcg tablet Take morning of surgery metFORMIN (GLUCOPHAGE) 500 mg tablet Don't take on day of surgery olmesartan-hydrochlorothiazide (BENICAR HCT) 40-12.5 mg per tablet Don't take on day of surgery Ozempic 1 mg/dose (4 mg/3 mL) pen injector injection Don't take on day of surgery General Instructions For Medications: * Stop all [...] with COVID-19. You test positive for COVID-19. HER APPRENTICE * Perioperative Nursing Note - Katie Nicolas RN - 05/30/2022 2:00 PM BUTCHER APPRENTICE Center for Preoperative Assessment and Planning Perioperative Nursing Note Telephone Preoperative Evaluation ([facility]) - TELEPHONE ONLY, NO PHYSICAL EXAM Date: 05/30/22 Vitals: 05/30/22 1355 Weight: 99.8 kg (220 lb) Height: 152.4 cm (5') CHEST CIRCUMFERENCE: n/a Social History Tobacco Use Smoking Status Never Smokeless Tobacco Never Substance and Sexual Activity Drug Use Never Alcohol Use Q2: How many drinks containing alcohol do you have on a typical day when you are drinking?: Patientdoes not drink Outpatient Medications Marked as Taking for the 06/14/22 encounter (Hospital Encounter) Medication Sig Dispense Refill aspirin 81 mg enteric coated tablet Take 81 mg by mouth daily before breakfast atorvastatin (LIPITOR) 20 mg tablet TAKE 1 TABLET DAILY (Patient taking differently: Take 20 mg by mouth every morning) 90 tablet 3 brimonidine-timoloL (Combigan) 0.2-0.5 % ophthalmic solution Administer 1 drop into both eyes 2 (two) times a day (Patient taking differently: Administer 1 drop into both eyes 2 (two) times a day) 10mL 11 CALCIUM ORAL Take 2 tablets by mouth every morning celecoxib (CeleBREX) 200 mg capsule TAKE 1 CAPSULE DAILY. (Patient taking differently: Take 200 mg by mouth 2 (two) times a day) 90 capsule 3 ergocalciferol (VITAMIN D) 50,000 unit capsule TAKE 1 CAPSULE BY MOUTH ONCE WEEKLY (Patient taking differently: Take 50,000 Units by mouth once a week TAKE 1 CAPSULE BY MOUTH ONCE WEEKLY) 12 capsule 0 HUMALOG KWIKPEN INSULIN 100 unit/mL insulin pen INJECT 10 UNITS SUBCUTANEOUSLY AT BREAKFAST, 8 TO 12 UNITS AT LUNCH, AND 5 UNITS WITH SNACKS (Patient taking differently: No sig reported) 45 mL 3 Jardiance 10 mg tablet TAKE 1 TABLET DAILY (Patient taking differently: Take 10 mg by mouth every morning) 90 tablet 3 LANTUS 100 unit/mL (3 mL) pen for injection INJECT 48 UNITS SUBCUTANEOUSLY DAILY (Patient taking differently: 40 Units every morning) 45 mL 2 latanoprost (XALATAN) 0.005 % ophthalmic solution INSTILL 1 DROP INTO BOTH EYES NIGHTLY (Patient taking differently: Administer 1 drop into both eyes nightly) 7.5 mL 1 levothyroxine (SYNTHROID) 88 mcg tablet Take 1 tablet (88 mcg total) by mouth daily (Patient takingdifferently: Take 88 mcg by mouth early intervention school psychologist before breakfast) 90 tablet 3 metFORMIN (GLUCOPHAGE) 500 mg tablet TAKE 1 TABLET BY MOUTH TWICE A DAY (Patient taking differently: Take 500 mg by mouth daily with breakfast) 180 tablet 3 olmesartan-hydrochlorothiazide (BENICAR HCT) 40-12.5 mg per tablet TAKE 1 TABLET BY MOUTH EVERY DAY(Patient taking differently: Take 1 tablet by mouth every morning) 90 tablet 2 Ozempic 1 mg/dose (4 mg/3 mL) pen injector injection INJECT 1MG SUBCUTANEOUSLY ONCE A WEEK. (Patient taking differently: Inject 1 mg under the skin) 9 mL 3 Implants No active implants to display in this view. SKIN Piercings Remaining: No Wound (LDAs) Type of Wound (LDA): (none) SCREENINGS Kathrin index score: 100 NUTRITION PATIENT CARE PLANNING Advance Directives (For Healthcare) Have you reviewed your Advance Directive and is it valid for this stay?: Not applicable Advance Directive: Patient does not have advance directive Assistive Devices/DME: Eyeglasses Hearing - Right Ear: Functional Hearing - Left Ear: Functional Discharge Planning Type of Residence: Private residence Living Arrangements: Family members Support Systems: Family members Assistance Needed: pt will have miniature train driver day of surgery Patient expects to be discharged to:: Private residence GROUNDS KEEPER NO ADDITIONAL COMMENTS/ FOLLOW UP HER APPRENTICE * Pre-Procedure Instructions - Katie Nicolas RN - 05/30/2022 1:57 PM BUTCHER APPRENTICE CENTER FOR PREOPERATIVE ASSESSMENT AND PLANNING (CPAP) PRE-SURGICAL NURSING INSTRUCTIONS Telephone Assessment General Information Discussed with Patient: Surgery location provided to patient. Arrival time and surgical time will be provided to the patient by their surgeon. You should wear clothing that is clean, loose, comfortable and easy to get in and out of on the dayof surgery. You should leave your valuables and any jewelry at home. No metal or piercings are allowed in the operating room. You should bring your insurance card, a photo ID (example: Nickel Operator's License) and a method of payment for any insurance copay, deductible or copay for discharge medications. You should bring a complete, up-to-date list of all your medications on the day of surgery, including any over the counter medications or supplements you may take. You should bring your Advanced Directive and/or Living Will with you on the day of surgery if you have not verified a copy is already in your Epic Chart. If you are having surgery at [facility], please arrive on the day of [...] Pathway to Excellent Care by the followinglink: [email or web address] How To Prepare Your Skin For Surgery [...] creams, powders, Vaseline or any non-essential products. Place clean linens on your bed the [...] questions, please call the CPAP Staff at [phone], Saturday-Saturday 8am-4:30pm. All patients should read the below section: All visitors/patients are being asked to wear a clean face mask when entering the hospital. COVID 19 Updates & Visitor Policy: Please access [email or web address] for the most updated information. Information on [facility]: Please view [email or web address] (Patient & Visitor Information) for additional details regarding Advanced Directive forms, AWARE, directions, parking information, lodging, Internet access, dining and more. Information on [facility] or [facility] [place] ([facility]): Please view [email or web address] (Patient and Visitor Information) for parking/directions and more. For MyChart information, to activate account or password recovery, please go to [email or web address] or call [phone] (toll-free: [phone]). Information for Suicide Prevention: National Suicide Prevention Lifeline (2-816- 603-EYYN (7116)). Surgery Times: For patients having surgery @ [facility], [facility] or [facility] [place] ([facility]), if your surgeon's office has not notified you of your surgery time by NOON THE BUSINESS DAY BEFORE your surgery, please call [phone] and ask for your surgeon's office Dr Ramos. For patients having [facility] @ [facility], if your surgeon's office has not notified you of your surgery time by NOON THE BUSINESS DAY BEFORE your surgery, please call the surgery center [phone]. HER APPRENTICE documented in this encounter Plan of Treatment Not on file documented as of this encounter Procedures Procedure Name Priority Date/Time Associated Diagnosis Comments POCT GLUCOSE DEVICE Routine 06/14/2022 9 :46 AM BUTCHER APPRENTICE GONIOTOMY 06/14/2022 9:16 AM BUTCHER APPRENTICE Nuclear sclerotic cataract of both eyes Primary open angle glaucoma of both eyes, moderate stage EXTRACTION CATARACT - PHACOEMULSIFICATION AND LENS IMPLANT 06/14/2022 9:16 AM BUTCHER APPRENTICE Nuclear sclerotic cataract of both eyes Primary open angle glaucoma of both eyes, moderate stage POCT GLUCOSE DEVICE Routine 06/14/2022 9 :01 AM BUTCHER APPRENTICE documented in this encounter Results * POCT glucose (06/14/2022 9:46 AM BUTCHER APPRENTICE) Glucose, POC 86 70 - 199 mg/dL [facility] Blood 06/14/2022 9:46 AM BUTCHER APPRENTICE 06/14/2022 9:46 AM BUTCHER APPRENTICE Makayla Ramos MD LAB POCT ORDERABLES - DEVICE Final Result Performing Organization Address [facility] [facility]/ZIP Co de Phone Number [facility] [email or web address] [address] * POCT glucose (06/14/2022 9:01 AM BUTCHER APPRENTICE) Glucose, POC 84 70 - 199 mg/dL [facility] Blood 06/14/2022 9:01 AM BUTCHER APPRENTICE 06/14/2022 9:01 AM BUTCHER APPRENTICE Makayla Ramos MD LAB POCT ORDERABLES - DEVICE Final Result Performing Organization Address City/[facility]/ZIP Co de Phone Number [facility] [email or web address] [address] documented in this encounter Visit Diagnoses Diagnosis Nuclear sclerotic cataract of both eyes Senile nuclear sclerosis Primary open angle glaucoma (POAG) of both eyes, moderate stage documented in this encounter Admitting Diagnoses Diagnosis Nuclear sclerotic cataract of both eyes Senile nuclear sclerosis Primary open angle glaucoma (POAG) of both eyes, moderate stage documented in this encounter Administered Medications Inactive Administered Medications - up to 3 most recent administrations Medication Order MAR Action Action Date Dose Rate Site dilating cocktail ophthalmic solution 0.3 mL 0.3 mL, right eye, Every 15 min, First dose on Dilma 06/14/22 at 0915, For 2 doses, Pre-Op, After each dose, have patient close eye and secure with paper tape. Ingredients per 0.3 mL Lidocaine 2% jelly 0.214 mL Phenylephrine 10% ophth drops 0.021 mL Cyclopentolate 1% ophth drops 0.021 mL Tropicamide 1% ophth drops 0.021 mL Ketorolac 0.5% ophth drops 0.021 mL, Indications: Mydriasis During Ocular SurgeryIndications:Mydriasis During Ocular Surgery Given 06/14/2022 9:03 AM BUTCHER APPRENTICE 0.3 mL Given 06/14/2022 8:48 AM BUTCHER APPRENTICE 0.3 mL Lactated Ringer's (LR) infusion 30 mL/hr, intravenous, Continuous, Starting on Dilma 06/14/22 at 0900, Pre-Op Rate/Dose Verify 06/14/2022 9:17 AM BUTCHER APPRENTICE 30 m L/hr New Bag 06/14/2022 8:48 AM BUTCHER APPRENTICE 30 mL/hr 30 mL/hr prochlorperazine (COMPAZINE) injection 5 mg 5 mg, intravenous, Administer over 2 Minutes, Once as needed, nausea, vomiting, Starting on Dilma 06/14/22 at 0946, For 1 dose, Phase I, If nausea/vomiting not relieved by ondansetron within 30 minutes or if ondansetron has been given within the last 6 hours. Given 06/14/2022 9:50 AM BUTCHER APPRENTICE 5 mg documented in this encounter Discontinued Medications Medication Sig Discontinue Reason Start Date End Da te predniSONE (DELTASONE) 20 mg tablet TAKE 1 TABLET (20 MG TOTAL) BY MOUTH DAILY FOR 5 DAYS. Error 11/27/2021 05/30/2022 documented as of this encounter Historical Medications * This list may reflect changes made after this encounter. aspirin 81 mg enteric coated tabletIndications :prevention of thrombosis Take 1 tablet (81 mg total) by mouth every morning CALCIUM ORALIndications:s upplement Take 2 tablets by mouth every morning 08/03/2022 added in this encounter Active and Recently Administered Medications Times are shown in BUTCHER APPRENTICE. Scheduled Medication Order 06/12/2022 06/13/2022 06/14/2022 dilating cocktail ophthalmic solution 0.3 mL (COMPLETED) 0.3 mL, right eye, Every 15 min, First dose on Dilma 06/14/22 at 0915, For 2 doses, Pre-Op, After each dose, have patient close eye and secure with paper tape. Ingredients per 0.3 mL Lidocaine 2% jelly 0.214 mL Phenylephrine 10% ophth drops 0.021 mL Cyclopentolate 1% ophth drops 0.021 mL Tropicamide 1% ophth drops 0.021 mL Ketorolac 0.5% ophth drops 0.021 mL, Indications: Mydriasis During Ocular Surgery 0848 (Given - Provid er: Denise Mcdonough RN)0903 (Given - Provider: Denise Mcdonough RN) Continuous Medication Order 06/12/2022 06/13/2022 06/14/2022 Lactated Ringer's (LR) infusion 30 mL/hr, intravenous, Continuous, Starting on Dilma 06/14/22 at 0900, Pre-Op 0848 (New Bag - Prov ider: Denise Mcdonough RN)0900 (Due)0917 (Rate/Dose Verify - Provider: Doris Zuleta CRNA)0936 (Anesthesia Volume Adjustment - Provider: Doris Zuleta CRNA)1028 (Stopped - Provider: Lee Ann Antonio RN) PRN Medication Order 06/12/2022 06/13/2022 06/14/2022 acetaminophen (TYLENOL) tablet 1,000 mg 1,000 mg, oral, Once as needed, other, pain, Starting on Dilma 06/14/22 at 0939, For 1 dose, Phase I balanced salt soln no.2 irrig. (BSS) intraocular solution (CANCELED) As needed, Starting on Dilma 06/14/22 at 0924, Intra-Op 0924 (Given - Provid er: Makayla Ramos MD) BSS-EPINEPHrine 0.3 mg preservative free intraocular solution (total volume 500 mL) (CANCELED) As needed, Starting on Dilma 2/2/23 at 0924, Intra-Op 0924 (Given - Provid er: Makayla Ramos MD) cefuroxime (ZINACEF) 20 mg/2 mL in sodium chloride 0.9% intracameral (premix) (CANCELED) As needed, Starting on Dilma 06/14/22 at 0001, Intra-Op 0001 (Given - Provid er: Makayla Ramos MD) lidocaine PF (XYLOCAINE) 10 mg/mL (1 %) preservative free injection (CANCELED) As needed, Starting on Dilma 06/14/22 at 0925, Intra-Op 0925 (Given - Provid er: Makayla Ramos MD) neomycin-polymyxin B-dexAMETHasone (MAXITROL) ophthalmic ointment (CANCELED) As needed, Starting on Dilma 06/14/22 at 0925, Intra-Op 0925 (Given - Provid er: Makayla Ramos MD) ondansetron (ZOFRAN) injection 4 mg 4 mg, intravenous, Administer over 2 Minutes, Once as needed, nausea, vomiting, Starting on Dilma 06/14/22 at 0946, For 1 dose, Phase I, Proceed to prochlorperazine if ondansetron has been given within the last 6 hours. prochlorperazine (COMPAZINE) injection 5 mg (COMPLETED) 5 mg, intravenous, Administer over 2 Minutes, Once as needed, nausea, vomiting, Starting on Dilma 06/14/22 at 0946, For 1 dose, Phase I, If nausea/vomiting not relieved by ondansetron within 30 minutes or if ondansetron has been given within the last 6 hours. 0950 (Given - Provid er: Lee Ann Antonio RN) tetracaine (PF) (ALTACAINE) 0.5 % ophthalmic solution (CANCELED) As needed, Starting on Dilma 06/14/22 at 0925, Intra-Op, Indications: Administration of Corneal Anesthesia 924 (Given - Provid er: Makayla Ramos MD) documented in this encounter Orders Medications Ordered That Alan ht Not Have Been Administered Count Last Ordered Date First Ordered Date acetaminophen (TYLENOL) tablet 1,000 mg 1 0 06/14/2022 balanced salt soln no.2 irri g. (BSS) intraocular solution 1 06/14/2022 BSS-EPINEPHrine 0.3 mg prese rvative free intraocular solution (total volume 500 mL) 1 06/14/2022 Carrier Fluids for Secondary Infusion - 0.9% Sodium Chloride 1 06/14/2022 cefuroxime (ZINACEF) 20 mg/2 mL in sodium chloride 0.9% intracameral (premix) 1 06/14/2022 lidocaine PF (XYLOCAINE) 10 mg/mL (1 %) preservative free injection 1 06/14/2022 neomycin-polymyxin B-dexAMET Hasone (MAXITROL) ophthalmic ointment 1 06/14/2022 ondansetron (ZOFRAN) injection 4 mg 1 06/14 sodium chloride 0.9% flush 0.5-20 mL 1 06/2022 tetracaine (PF) (ALTACAINE) 0.5 % ophthalmic solution 1 06/14/2022 Diet Count Last Ordered Date First Orde red Date ADULT DISCHARGE DIET 1 06/14/2022 Nursing Count Last Ordered Date First Orde red Date DISCHARGE ACTIVITY 2 06/14/2022 DISCHARGE CALL PROVIDER 2 06/14/2022 Discharge Count Last Ordered Date First Orde red Date DISCHARGE PATIENT 1 06/14/2022 documented in this encounter Care Teams Electronic Assembly Relationship Specialty Start Date End Date Elpidio Serrato MD PCP - General Internal Medicine 06/09/18 documented as of this encounter
--- OUTSIDE RECORDS SUMMARY | 2024-04-29 14:09 | XMS_ITS | Encounter Summary ---
Author Organization [facility] Address [address] [place] [address] Phone Care Team Providers Care Country Printer Name Role Phone Elpidio Serrato MD Primary Care Provider [phone] Encounter Details Date Type Department Care Team (Late st Contact Info) Description 02/16/2022 Telephone [facility] Ophthalmology [address] [place] [address] Makayla Ramos MD [address] [place], [place] [id number] Social History Tobacco Use Types Packs/Day Years Used Date Smoking Tobacco: Never Smokeless Tobacco: Never Comments Unknown Sex and Gender Information Value Date Recorded Sex Assigned at Not on file Legal Sex Female 3:59 AM APPAREL DESIGNER Gender Identity Female 05/13/2021 4:21 PM APPAREL DESIGNER Sexual Orientation Not on file documented as of this encounter Miscellaneous Notes * Telephone Encounter - Chantelle Lorenzana - 02/16/2022 10:56 AM CDT Left message for patient to call me to schedule appt and hold date for surgery with Dr. Ramos documented in this encounter Plan of Treatment Not on file documented as of this encounter Visit Diagnoses Not on filedocumented in this encounter Care Teams Country Printer Relationship Specialty Start Date End Date Elpidio Serrato MD PCP - General Internal Medicine 06/09/18 documented as of this encounter
--- OUTSIDE RECORDS SUMMARY | 2024-04-29 14:09 | XMS_ITS | Encounter Summary ---
Author Organization [facility] Address [address] [place] [address] Phone Care Team Providers Care Green House Manager Name Role Phone Elpidio Serrato MD Primary Care Provider [phone] Encounter Details Date Type Department Care Team (Late st Contact Info) Description 06/22/2022 Orders Only [facility] Endocrinology Metabolism and Lipid [address] [facility] 13th [place] [address] [place] [address] Princess Hu RMA Social History Tobacco Use Types Packs/Day Years Used Date Smoking Tobacco: Never Smokeless Tobacco: Never AUDIT-C Answer Date Recorded Frequency of Alcohol Consumption Not on file 05/30/2022 Q2: How many drinks containi ng alcohol do you have on a typical day when you are drinking? Patient does not drink Frequency of Binge Drinking Not on file 05/13 Comments Unknown Sex and Gender Information Value Date Recorded Sex Assigned at Not on file Legal Sex Female 3:59 AM SAFETY INTERN Gender Identity Female 05/13/2021 4:21 PM SAFETY INTERN Sexual Orientation Not on file documented as of this encounter Ordered Prescriptions Prescription Sig Dispense Quantity Refills Last Filled Start Date End Date insulin glargine (BASAGLAR) 100 unit/mL (3 mL) pen for injection Inject 40 Units under the skin daily 45 mL 06/22/2022 09/11/2022 documented in this encounter Plan of Treatment Not on file documented as of this encounter Visit Diagnoses Not on filedocumented in this encounter Discontinued Medications Medication Sig Discontinue Reason Start Date End Da te LANTUS 100 unit/mL (3 mL) pen for injection INJECT 48 UNITS SUBCUTANEOUSLY DAILY Formulary change 07/10/2021 06/22/2022 documented as of this encounter Care Teams Green House Manager Relationship Specialty Start Date End Date Elpidio Serrato MD PCP - General Internal Medicine 06/09/18 documented as of this encounter
--- OUTSIDE RECORDS SUMMARY | 2024-04-29 14:09 | XMS_ITS | Encounter Summary ---
Author Organization [facility] Address [address] [place] [address] Phone Care Team Providers Care Jai Alai Player Name Role Phone Elpidio Serrato MD Primary Care Provider [phone] Reason for Referral * Diagnostic Imaging (Routine) - Closed Specialty Diagnoses / Procedures Referred By Constantino alvarado Referred To Contact Diagnoses Primary open angle glaucoma (POAG) of both eyes, moderate stage Procedures Forrest Visual Field - OU - Both Eyes Makayla Ramos MD [address] [place] [address] Phone: tel: fax: [facility] (All Locations) Referral ID Status Reason Start Date Expiration Date Visits Re quested Visits Authorized [id number] Closed 06/04/2022 07/04/2023 1 1 IGERATION LEAD Encounter Details Date Type Department Care Team (Late st Contact Info) Description 06/04/2022 9:15 AM REFRIGERATION LEAD Office Visit [facility] Ophthalmology [facility] [place] [address] Makayla Ramos MD [address] [place] [address] Primary open angle glaucoma (POAG) of both eyes, moderate stage (Primary Dx); Nuclear sclerotic cataract of both eyes Social History Tobacco Use [...] on file Legal Sex Female 3:59 AM REFRIGERATION LEAD Gender Identity Female 05/13/2021 4:21 PM REFRIGERATION LEAD Sexual Orientation Not on file documented as of this encounter Progress Notes * Makayla Ramos MD - 06/04/2022 9:15 AM CST Assessment/Plan Diagnoses and all orders for this visit: Primary open angle glaucoma (POAG) of both eyes, moderate stage (Primary) Assessment & Plan: Progression of field - plan for goniotomy at time of surgery Continue drops at this time Orders: - Forrest Visual Field - OU - Both Eyes Nuclear sclerotic cataract of both eyes Assessment & Plan: NS OU The patient understands the risks, [...] perioperative steroids: no Book Phaco/IOL/goniotomy right eye. I have seen/examined the patient and I agree with the findings/plan of the Resident/Fellow IGERATION LEAD documented in this encounter Miscellaneous Notes * Assessment & Plan Note - Makayla Ramos MD - 06/04/2022 2:51 PM REFRIGERATION LEAD Associated Problem(s): Pseudophakia of both eyes NS OU The patient understands the risks, [...] perioperative steroids: no Book Phaco/IOL/goniotomy right eye. IGERATION LEAD * Assessment & Plan Note - Makayla Ramos MD - 06/04/2022 2:51 PM REFRIGERATION LEAD Associated Problem(s): Primary open angle glaucoma (POAG) of both eyes, moderate stage Progression of field - plan for goniotomy at time of surgery Continue drops at this time IGERATION LEAD documented in this encounter Plan of Treatment Not on file documented as of this encounter Procedures Procedure Name Priority Date/Time Associated Diagnosis Comments FORREST VISUAL FIELD - OU - BOTH EYES Routine 06/04/2022 2:50 PM REFRIGERATION LEAD Primary open angle glaucoma (POAG) of both eyes, moderate stage documented in this encounter Results * Forrest Visual Field - OU - Both Eyes (06/04/2022 2:50 PM REFRIGERATION LEAD) Anatomical Region Laterality Modality Head Visual Field Narrative 06/04/2022 2:50 PM REFRIGERATION LEAD Right Eye Fixation was good. Cooperation was good. Reliability was good. Progression has been stable. Foveal threshold was normal. Findings include superior arcuate defect. Left Eye Fixation was good. Cooperation was good. Reliability was good. Progression has been stable. Foveal threshold was normal. Findings include non-specific defects. us Makayla Ramos MD OPHTH VISUAL FIELD Final Resu lt documented in this encounter Visit Diagnoses Diagnosis Primary open angle glaucoma (POAG) of both eyes, moderate stage- Primary Nuclear sclerotic cataract of both eyes Senile nuclear sclerosis documented in this encounter Eye Exam Visual Acuity (Snellen - Linear) Right eye Left eye Dist cc 20/60 20/25 Dist ph cc 20/30 +1 Correction: Glasses Tonometry (Applanation, 9:43 AM) Right eye Left eye Pressure 16 16 Did not use Combigan this morning Pupils Pupils Dark Light Shape React APD Right eye PERRL 2.5 2 Round Brisk None Left eye PERRL 2.5 2 Round Brisk None Visual Vann Right eye Left eye Full Restrictions Partial outer superior temporal deficiency Extraocular Movement Right eye Left eye Full, Ortho Full, Ortho Neuro/Psych Oriented x3: Yes Mood/Affect: Normal Glare Testing (Transilluminator) Medium Right eye 20/60 Left eye 20/50 External Exam Right eye Left eye External Normal Normal Slit Lamp Exam Right eye Left eye Lids/Lashes Normal Normal Conjunctiva/Sclera White and quiet White and ketan et Cornea Clear Clear Anterior Chamber Moderate, quiet Moderate, quiet Iris Round and reactive Round and newton ctive Lens 2+ Nuclear sclerosis , cortical spokes 2+ Nuclear sclerosis, 2+ cortical spokes encroaching on VS Anterior Vitreous Normal Normal Fundus Exam Right eye Left eye Posterior Vitreous Normal Normal Disc thin inferior and te mporal rim, PPA Thin inferiorly, superiorly with PPA C/D Ratio 0.85 0.85-9 Macula Normal Normal Wearing Rx Sphere Cylinder [place] Add Right eye -3.25 +1.00 166 +2.50 Left eye -2.75 +0.75 035 +2.50 Manifest Refraction Sphere Cylinder [place] Dist VA Right eye -4.25 +1.00 165 20/30+2 Left eye -3.00 +0.75 035 20/25 Care Teams Jai Alai Player Relationship Specialty Start Date End Date Elpidio Serrato MD PCP - General Internal Medicine 06/09/18 documented as of this encounter
--- OUTSIDE RECORDS SUMMARY | 2024-04-29 14:09 | XMS_ITS | Encounter Summary ---
Author Organization [facility] Address [address] [place] [address] Phone Care Team Providers Care Research Attorney Name Role Phone Elpidio Serrato MD Primary Care Provider [phone] Encounter Details Date Type Department Care Team (Late st Contact Info) Description 04/20/2022 Orders Only [facility] Endocrinology Metabolism and Lipid [address] [place] [address] Medical Office Building [address], [address] [place] [address] Princess Hu RMA Social History Tobacco Use Types Packs/Day Years Used Date Smoking Tobacco: Never Smokeless Tobacco: Never Comments Unknown Sex and Gender Information Value Date Recorded Sex Assigned at Not on file Legal Sex Female 3:59 AM DEPARTMENT MANAGER Gender Identity Female 05/13/2021 4:21 PM DEPARTMENT MANAGER Sexual Orientation Not on file documented as of this encounter Ordered Prescriptions Prescription Sig Dispense Quantity Refills Last Filled Start Date End Date levothyroxine (SYNTHROID) 88 mcg tablet Take 1 tablet (88 mcg total) by mouth daily 90 tablet 3 04/20/2022 04/12/2023 documented in this encounter Plan of Treatment Not on file documented as of this encounter Visit Diagnoses Not on filedocumented in this encounter Discontinued Medications Medication Sig Discontinue Reason Start Date End Da te levothyroxine (SYNTHROID) 88 mcg tablet TAKE 1 TABLET BY MOUTH EVERY DAY Reorder 03/07/2021 04/20/2022 documented as of this encounter Care Teams Research Attorney Relationship Specialty Start Date End Date Elpidio Serrato MD PCP - General Internal Medicine 06/09/18 documented as of this encounter
--- OUTSIDE RECORDS SUMMARY | 2024-04-29 14:09 | XMS_ITS | Encounter Summary ---
Author Organization [facility] Address [address] [place] [address] Phone Care Team Providers Care Manager Respiratory Care Name Role Phone Elpidio Serrato MD Primary Care Provider [phone] Reason for Referral * Diagnostic Imaging (Routine) - Closed Specialty Diagnoses / Procedures Referred By Constantino alvraado Referred To Contact Diagnoses Primary open angle glaucoma (POAG) of both eyes, moderate stage Procedures Forrest Visual Field - OU - Both Eyes Makayla Ramos MD [address] [address] Phone: tel: fax: [facility] (All Locations) Referral ID Status Reason Start Date Expiration Date Visits Re quested Visits Authorized [id number] Closed 02/19/2022 03/21/2023 1 1 Encounter Details Date Type Department Care Team (Late st Contact Info) Description 02/19/2022 Orders Only [facility] Ophthalmology [address] [facility] [address] [place] [address] Makayla Ramos MD [address] [place] [address] Primary open angle glaucoma (POAG) of both eyes, moderate stage (Primary Dx) Social History Tobacco Use Types Packs/Day Years Used Date Smoking Tobacco: Never Smokeless Tobacco: Never Comments Unknown Sex and Gender Information Value Date Recorded Sex Assigned at Not on file Legal Sex Female 3:59 AM PRODUCTION EXPEDITER Gender Identity Female 05/13/2021 4:21 PM PRODUCTION EXPEDITER Sexual Orientation Not on file documented as of this encounter Plan of Treatment Not on file documented as of this encounter Procedures Procedure Name Priority Date/Time Associated Diagnosis Comments FORREST VISUAL FIELD - OU - BOTH EYES Routine 06/04/2022 9:00 AM PRODUCTION EXPEDITER Primary open angle glaucoma (POAG) of both eyes, moderate stage documented in this encounter Results * Forrest Visual Field - OU - Both Eyes (06/04/2022 9:00 AM PRODUCTION EXPEDITER) Pattern Deviation OS 3.86 dB CONTINUUM Pattern Deviation OD 8.62 dB CONTINUUM Mean Deviation OS -3.66 dB CONTINUUM Mean Deviation OD -6.37 dB CONTINUUM Anatomical Region Laterality Modality Head Other Narrative 06/05/2022 7:10 AM PRODUCTION EXPEDITER Right Eye Fixation was good. Cooperation was good. Reliability was good. Mean Deviation was -6.37 dB. Pattern Deviation was 8.62 dB. Left Eye Fixation was good. Cooperation was good. Reliability was good. Mean Deviation was -3.66 dB. Pattern Deviation was 3.86 dB. us Makayla Ramos MD OPHTH VISUAL FIELD Final Resu lt documented in this encounter Visit Diagnoses Diagnosis Primary open angle glaucoma (POAG) of both eyes, moderate stage- Primary documented in this encounter Care Teams Manager Respiratory Care Relationship Specialty Start Date End Date Elpidio Serrato MD PCP - General Internal Medicine 06/09/18 documented as of this encounter
--- OUTSIDE RECORDS SUMMARY | 2024-04-29 14:09 | XMS_ITS | Encounter Summary ---
Author Organization [facility] Address [address] [place] [address] Phone Care Team Providers Care Source Inspector Name Role Phone Elpidio Serrato MD Primary Care Provider [phone] Reason for Referral * Diagnostic Imaging (Routine) - Closed Specialty Diagnoses / Procedures Referred By Constantino alvarado Referred To Contact Diagnoses Primary open angle glaucoma (POAG) of both eyes, moderate stage Procedures Forrest Visual Field - OU - Both Eyes Makayla Ramos MD [address] [place] [address] Phone: tel: fax: [facility] (All Locations) Referral ID Status Reason Start Date Expiration Date Visits Re quested Visits Authorized [id number] Closed 05/16/2022 06/15/2023 1 1 SPOTTER Encounter Details Date Type Department Care Team (Late st Contact Info) Description 05/16/2022 Orders Only [facility] Ophthalmology [facility] [place] [address] Makayla Ramos MD [address] [place] [address] Nuclear sclerotic cataract of both eyes (Primary Dx); Primary open angle glaucoma (POAG) of both eyes, moderate stage Social History Tobacco Use Types Packs/Day Years Used Date Smoking Tobacco: Never Smokeless Tobacco: Never Comments Unknown Sex and Gender Information Value Date Recorded Sex Assigned at Not on file Legal Sex Female 3:59 AM WOOL SPOTTER Gender Identity Female 05/13/2021 4:21 PM WOOL SPOTTER Sexual Orientation Not on file documented as of this encounter Plan of Treatment Not on file documented as of this encounter Results * Forrest Visual Field [...] -2.95 db. Pattern Deviation was 3.51 db. Makayla Ramos MD OPHTH VISUAL FIELD Final Resu lt documented in this encounter Visit Diagnoses Diagnosis Nuclear sclerotic cataract of both eyes- Primary Senile nuclear sclerosis Primary open angle glaucoma (POAG) of both eyes, moderate stage Primary open angle glaucoma (POAG) of both eyes, moderate stage documented in this encounter Care Teams Source Inspector Relationship Specialty Start Date End Date Elpidio Serrato MD PCP - General Internal Medicine 06/09/18 documented as of this encounter
--- OUTSIDE RECORDS SUMMARY | 2024-04-29 14:09 | XMS_ITS | Encounter Summary ---
Author Organization [facility] Address [address] [place] [address] Phone Care Team Providers Care Oceanography Professor Name Role Phone Elpidio Serrato MD Primary Care Provider [phone] Encounter Details Date Type Department Care Team (Late st Contact Info) Description 06/22/2022 7:45 AM WIND TECHNICIAN Office Visit [facility] Ophthalmology [address] [facility] [place] [address] Makayla Ramos MD [address] [place] [address] Primary open angle glaucoma (POAG) [...] on file Legal Sex Female 3:59 AM WIND TECHNICIAN Gender Identity Female 05/13/2021 4:21 PM WIND TECHNICIAN Sexual Orientation Not on file documented as of this encounter Progress Notes * Makayla Ramos MD - 06/22/2022 7:45 AM CST Assessment/Plan Diagnoses and all orders for this visit: Primary open angle glaucoma (POAG) of both eyes, moderate stage (Primary) Assessment & Plan: POW1 EXTRACTION CATARACT - PHACOEMULSIFICATION AND LENS IMPLANT - right eye - Right and GONIOTOMY -right eye - Right Postoperative instructions were given. [...] is to call. Follow for surgery OS Nuclear sclerotic cataract of both eyes Assessment & Plan: The patient understands the risks, benefits, alternatives [...] perioperative steroids: no Book Phaco/IOL/goniotomy left eye. I have seen/examined the patient and I agree with the findings/plan of the Resident/Fellow TECHNICIAN * Mile Neal COA - 06/22/2022 7:45 AM CST 06/25/2022 - LVM for patient to call me back to schedule surgery. TECHNICIAN documented in this encounter Miscellaneous Notes * Addendum Note - Mile Neal COA - 06/22/2022 7:45 AM CSTAddended by: MILE NEAL on: 06/27/2022 11:13 AM Modules accepted: Orders TECHNICIAN * Assessment & Plan Note - Makayla Ramos MD - 06/22/2022 7:41 AM WIND TECHNICIAN Associated Problem(s): Pseudophakia of both eyes The patient understands the risks, benefits, alternatives [...] perioperative steroids: no Book Phaco/IOL/goniotomy left eye. TECHNICIAN * Assessment & Plan Note - Makayla Ramos MD - 06/22/2022 7:41 AM WIND TECHNICIAN Associated Problem(s): Primary open angle glaucoma (POAG) of both eyes, moderate stage POW1 EXTRACTION CATARACT - PHACOEMULSIFICATION AND LENS IMPLANT - right eye - Right and GONIOTOMY -right eye - Right Postoperative instructions were given. [...] is to call. Follow for surgery OS TECHNICIAN documented in this encounter Plan of Treatment Not on file documented as of this encounter Procedures Procedure Name Priority Date/Time Associated Diagnosis Comments IOL CALCULATION 2ND EYE 87638 - OS - LEFT EYE Routine 06/22/2022 7:45 AM WIND TECHNICIAN Nuclear sclerotic cataract of both eyes documented in this encounter Results * IOL Calculation 2nd Eye 06017 - OS - Left Eye (06/22/2022 7:45 AM WIND TECHNICIAN) Anatomical Region Laterality Modality Head Ophthalmic Axial Measurements us Makayla Ramos MD OPHTH ULTRASOUND Final Result documented in this encounter Visit Diagnoses Diagnosis Primary open angle glaucoma (POAG) of both eyes, moderate stage- Primary Nuclear sclerotic cataract of both eyes Senile nuclear sclerosis documented in this encounter Eye Exam Visual Acuity (Snellen - Linear) Right eye Left eye Dist sc 20/25 Tonometry (Applanation, 7:39 AM) Right eye Left eye Pressure 24 Neuro/Psych Oriented x3: Yes Mood/Affect: Normal External Exam Right eye Left eye External Normal Normal Slit Lamp Exam Right eye Left eye Lids/Lashes Normal Conjunctiva/Sclera White and quiet Cornea Clear Anterior Chamber Deep and quiet Iris Round and reactive Lens PCIOL Care Teams Oceanography Professor Relationship Specialty Start Date End Date Elpidio Serrato MD PCP - General Internal Medicine 06/09/18 documented as of this encounter
--- OUTSIDE RECORDS SUMMARY | 2024-04-29 14:09 | XMS_ITS | Encounter Summary ---
Author Organization [facility] Address [address] [place] [address] Phone Care Team Providers Care Manhole Builder Name Role Phone Elpidio Serrato MD Primary Care Provider [phone] Reason for Visit * Reason Comments Post-op Encounter Details Date Type Department Care Team (Late st Contact Info) Description 06/15/2022 8:15 AM HOSPITAL WELLNESS COORDINATOR Office Visit [facility] Ophthalmology [address] [facility] [place] [address] Makayla Ramos MD [address] [place] [address] Primary open angle glaucoma (POAG) [...] on file Legal Sex Female 3:59 AM HOSPITAL WELLNESS COORDINATOR Gender Identity Female 05/13/2021 4:21 PM HOSPITAL WELLNESS COORDINATOR Sexual Orientation Not on file documented as of this encounter Progress Notes * Makayla Ramos MD - 06/15/2022 8:15 AM CST Assessment/Plan Diagnoses and all orders for this visit: Primary open angle glaucoma (POAG) of both eyes, moderate stage (Primary) Assessment & Plan: POD1 EXTRACTION CATARACT - PHACOEMULSIFICATION AND LENS [...] agree with the findings/plan of the Resident/Fellow ITAL WELLNESS COORDINATOR documented in this encounter Miscellaneous Notes * Assessment & Plan Note - Vincent Gamboa MD - 06/15/2022 8:24 AM HOSPITAL WELLNESS COORDINATOR Associated Problem(s): Primary open angle glaucoma (POAG) of both eyes, moderate stage POD1 EXTRACTION CATARACT - PHACOEMULSIFICATION AND LENS [...] Followup 1 week or sooner for concerns. ITAL WELLNESS COORDINATOR ITAL WELLNESS COORDINATOR documented in this encounter Plan of Treatment Not on file documented as of this encounter Visit Diagnoses Diagnosis Primary open angle glaucoma (POAG) of both eyes, moderate stage- Primary documented in this encounter Eye Exam Visual Acuity (Snellen - Linear) Right eye Left eye Dist sc 20/30 -1 Dist ph sc 20/20 -1 Tonometry (Defer to MD, 8:23 AM) Right eye Left eye Pressure 19 Pupils Dark Light Shape React APD Right eye 5 5 Round pharm dilated None Left eye 2.5 2 Round Brisk None Neuro/Psych Oriented x3: Yes Mood/Affect: Normal External Exam Right eye Left eye External Normal Normal Slit Lamp Exam Right eye Left eye Lids/Lashes Normal Conjunctiva/Sclera Tr LAMONTE Nasally Cornea Trace edema Anterior Chamber 1+ cell, flare, Deep Iris Round and reactive Lens PCIOL Fundus Exam Right eye Left eye Posterior Vitreous Normal Normal Disc thin inferior and te mporal rim, PPA Thin inferiorly, superiorly with PPA C/D Ratio 0.85 0.85-9 Macula Normal Normal Care Teams Manhole Builder Relationship Specialty Start Date End Date Elpidio Serrato MD PCP - General Internal Medicine 06/09/18 documented as of this encounter
--- OUTSIDE RECORDS SUMMARY | 2024-04-29 14:09 | XMS_ITS | Encounter Summary ---
Author Organization [facility] Address [address] [place] [address] Phone Care Team Providers Care Network Controller Name Role Phone Elpidio Serrato MD Primary Care Provider [phone] Reason for Referral * Diagnostic Imaging (Routine) - Closed Specialty Diagnoses / Procedures Referred By Contac t Referred To Contact Diagnoses Osteoporosis without current pathological fracture, unspecified osteoporosis type Procedures Dexa Axial Skeleton Bone Density 1 or 2 Site Merna Bell MD Phone: tel: fax: [facility] (All Locations) Referral ID Status Reason Start Date Expiration Date Visits Re quested Visits Authorized [id number] Closed 07/03/2022 08/02/2023 1 1 ELER Encounter Details Date Type Department Care Team (Latest Contact Info) Description 07/03/2022 2:50 PM SHOVELER Office Visit [facility] Endocrinology Metabolism and Lipid [address] [facility] [address] [place] [address] [place] [address] Merna Bell MD [address] [facility] [address] [place] [address] 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, with long-term current use of insulin, unspecified laterality (HCC) (Primary Dx); Osteoporosis without current pathological fracture, unspecified osteoporosis type Social History Tobacco Use Types Packs/Day [...] on file Legal Sex Female 3:59 AM SHOVELER Gender Identity Female 05/13/2021 4:21 PM SHOVELER Sexual Orientation Not on file documented as of this encounter Last Filed Vital Signs Vital Sign Reading Time Taken Comments Blood Pressure 121/69 07/03/2022 2:12 PM SHOVELER Pulse 69 07/03/2022 2:12 PM SHOVELER Temperature 36.7 ??C (98 ??F) 07/03/2022 2:12 PM SHOVELER Respiratory Rate - - Oxygen Saturation - - Inhaled Oxygen Concentration - - Weight 91.4 kg (201 lb 9.6 oz) 07/03/2022 2:12 P M SHOVELER Height 152.4 cm (5') 07/03/2022 2:12 PM SHOVELER Body Mass Index 39.37 07/03/2022 2:12 PM SHOVELER documented in this encounter Progress Notes * Paloma Mclean MD - 07/03/2022 2:50 PM CST Images from the original note were not included. Endocrinology Outpatient Clinic Note Patient: Isabelle Lutz, 72 y.o. female (: 1950 ) PCP: Elpidio Serrato MD (Referring: Elpidio Serrato MD) CC: diabetes HPI & Subjective 70 y.o. female who returns for follow up of Type 2 Diabetes, Hypertension and Hyperlipidemia. Most recent A1c is 5.4% She is taking Lantus 42 units, Humalog 10 units with meals. She misses occasional doses if she is not going to eat or if her BG is <200. mg/dl pre- meal. She also takes metformin 500 mg AM, Ozempic, 1 mg weekly and Jardiance 10 mg Daily. She is now using the Dexcom G6 CGM, which she finds very helpful, and has reduced the frequency of her fingerstick glucose tests. She uses it continuously for frequent monitoring, safety and to adjust insulin doses. CGM Interpretation Sensor Usage; 100% Mean BG 129 mg/dl. Time in Range 76% High 18% Low 5% <1% Very Low Pattern analysis; some mild hypoglycemia around 3 AM, does have very mild post prandial hyperglycemia particularly after dinner. By way of complications Isabelle Lutz reports [...] gm/cm -4.0% decrease which is considered significant. She takes vit D 50,000 weekly on Sat. She denies frequent falls. She takes levothyroxine 88 mcg daily, takes in on an empty stomach and doesn't eat for an hour. PMH / PSH Past Medical History: Diagnosis Date Cataract Diabetes mellitus (HCC) Diabetic retinopathy (CMS/HCC) (HCC) Glaucoma Multiparity History Of ___ Previous Pregnancies - 7 pregnancies, 2 children - C-sections. (Added by TW Conv) Nonproliferative diabetic retinopathy (CMS/HCC) (HCC) 11/03/2009 Personal history of other specified conditions History of chest pain - Stress test negative on 08/01/06 (Added by TW Conv) Past Surgical History: Procedure Laterality Date CATARACT EXTRACTION Right 06/14/2022 CE/IOL + goniotomy NM APPENDECTOMY unkown dates per pt NM DELIVERY ONLY Section - in 1972 and 1975 (Added by TW Conv) NM TENDON SHEATH INCISION Hand Incision Tendon Sheath [...] negative. Vitals & Physical Exam Blood pressure 121/69, pulse 69, temperature 36.7 ??C (98 ??F), height 152.4 cm (5'), weight 91.4 kg (201 lb 9.6 oz). Body mass index is 39.37 kg/m??. Physical Exam Gen : no acute [...] labs, imaging, and diagnostics independently reviewed in [facility] and commented on below. Allergies: Pseudoephedrine and Valacyclovir HOME MEDICATIONS : aspirin 81 mg enteric coated tablet atorvastatin (LIPITOR) 20 mg tablet blood glucose diagnostic (glucose blood) strip brimonidine-timoloL (Combigan) 0.2-0.5 % ophthalmic solution CALCIUM ORAL celecoxib (CeleBREX) 200 mg capsule ergocalciferol (VITAMIN D) 50,000 unit capsule HUMALOG KWIKPEN INSULIN 100 unit/mL insulin pen insulin glargine (BASAGLAR) 100 unit/mL (3 mL) pen for injection Jardiance 10 mg tablet latanoprost (XALATAN) 0.005 % ophthalmic solution levothyroxine (SYNTHROID) 88 mcg tablet metFORMIN (GLUCOPHAGE) 500 mg tablet moxifloxacin (VIGAMOX) 0.5 % ophthalmic solution olmesartan-hydrochlorothiazide (BENICAR HCT) 40-12.5 mg per tablet Ozempic 1 mg/dose (4 mg/3 mL) pen injector injection pen needle, diabetic (BD ULTRA-FINE WENDY PEN NEEDLE) 32 gauge x 5/32 needle prednisoLONE acetate (PRED FORTE) 1 % ophthalmic suspension Lab Results Component Value Date TSH 1.69 06/25/2022 FREET4 1.39 12/09/2017 Lab Results Component Value Date CHOL 173 06/25/2022 TRIG 108 06/25/2022 HDL 49 (L) 06/25/2022 LDLCALC 91 01/13/2021 LDLDIRECT 102 03/31/2019 Lab Results Component Value Date PTH 71 06/25/2022 25HYDROVITD 40 01/13/2021 Lab Results Component Value Date HGBA1C 5.4 06/25/2022 Assessment & Plan Type 2 diabetes mellitus ([facility]) Glucoses are excellent , A1c 5.4% - Continue use of Dexcom CGM for frequent monitoring, insulin dose adjustments and safety (alarms) - Continue metformin, Ozempic and Jardiance - Continue on same basal/bolus regimen Hypertension At goal today. Pt takes Benicar, ARB at near maximum dose. Vitamin D deficiency Osteopenia - repeat DEXA - continue on Vit D supplements Hyperlipidemia - LDL 104 , on lipitor 20 mg daily Hypothyroidism - TSH 06/2022= 1.6 - continue current dose of levothyrxoine Orders Placed This Encounter POCT glucose -- Paloma Mclean MD Clinical Fellow Endocrinology, Metabolism, & Lipid Research Cosigned by Merna Bell MD at 07/04/2022 5:02 PM SHOVELER ELER ELER Associated attestation - Merna Bell MD - 07/04/2022 5:02 PM SHOVELER I have seen and examined the patient. I agree with the findings and plan of care as documented in the resident/fellow's note. My total encounter time on 07/03/2022 was 30 minutes which was spent in the activities documented in the note. This includes time spent prior to the visit and after the visitin direct care of the patient. This time does not include time spent in any separately reportable services. 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 ?? Based on machine cross-calibration [...] by the International Society of Clinical Densitometry. 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
--- OUTSIDE RECORDS SUMMARY | 2024-04-29 14:09 | XMS_ITS | Encounter Summary ---
Author Organization [facility] Healthcare Address [address] [place] [address] Care Team Providers Care Steward/Stewardess Lounge Name Role Phone Elpidio Serrato MD Primary Care Provider [phone] Reason for Visit * Auth/Cert Specialty Diagnoses / Procedures Referred By Contac t Referred To Contact Diagnoses Nuclear sclerotic cataract of both eyes Primary open angle glaucoma of both eyes, moderate stage Nuclear sclerotic cataract of both eyes [H25.13] Primary open angle glaucoma of both eyes, moderate stage [H40.1132] Procedures MN XCAPSL CTRC RMVL INSJ IO LENS PROSTH W/O ECP MN GONIOTOMY EXTRACTION CATARACT - PHACOEMULSIFICATION AND LENS IMPLANT - right eye GONIOTOMY - right eye Referral ID Status Reason Start Date Expiration Date Visits Re quested Visits Authorized [id number] 1 1 Encounter Details Date Type Department Care Team (Latest Contact Info) Description 06/14/2022 9:15 AM KEYBOARD SPECIALIST - 06/14/2022 9:50 AM KEYBOARD SPECIALIST Surgery [facility] Operating Room [facility]) [facility] [place] [address] Makayla Ramos MD [facility] [place] [address] EXTRACTION CATARACT - PHACOEMULSIFICATION AND LENS IMPLANT - right eye Surgery Details Date/Time Status Location OR Service Patient Class Case Cl ass Case Type Trauma Case? 06/14/2022 9:15 AM Posted [facility] CAM OR POD 4 P Ophthalmology Outpatient Elective Panel 1 Procedure LRB Anes Op Region Wound Class Comments EXTRACTION CATARACT - PHACOEMULSIFICATION AND LENS IMPLANT - right eye Right Monitor Anesthesia Care Eye Class I - Clean GONIOTOMY - right eye Right Monitor An esthesia Care Eye Class I - Clean Surgeon Surgeon Role Service Panel Makayla Ramos MD Primary Ophthalmology 1 documented in this encounter Social [...] on file Legal Sex Female 3:59 AM KEYBOARD SPECIALIST Gender Identity Female 05/13/2021 4:21 PM KEYBOARD SPECIALIST Sexual Orientation Not on file documented as of this encounter Last Filed Vital Signs Vital Sign Reading Time Taken Comments Blood Pressure 101/38 06/14/2022 9:50 AM KEYBOARD SPECIALIST RN to retake, inaccurate Pulse 79 06/14/2022 9:50 AM KEYBOARD SPECIALIST Temperature 36 ??C (96.8 ??F) 06/14/2022 9:4 0 AM KEYBOARD SPECIALIST Respiratory Rate 16 06/14/2022 9:50 AM KEYBOARD SPECIALIST Oxygen Saturation 97% 06/14/2022 9:5 0 AM KEYBOARD SPECIALIST Inhaled Oxygen Concentration - - Weight 99.8 kg (220 lb) 05/30/2022 1:55 PM KEYBOARD SPECIALIST Height 152.4 cm (5') 05/30/2022 1:55 PM KEYBOARD SPECIALIST Body Mass Index 42.97 05/30/2022 1:55 PM KEYBOARD SPECIALIST documented in this encounter Discharge Instructions * Discharge Instructions* Makayla Ramos MD - 06/14/2022 9:38 AM KEYBOARD SPECIALIST Eye Surgery Post-Op Instructions Your surgeon???s name: [...] your vision Whom to call with concerns: [phone] - [facility] or [phone] - [facility] If after hours, listen to the voicemail for instructions for contacting the Eye Doctor organizational effectiveness director. Thank you for entrusting us with your eye care. OARD SPECIALIST * Attachments The following attachments cannot be sent through Care Everywhere. * [facility] PATHWAY TO EXCELLENT CARE AFTER [...] - right eye GONIOTOMY - right eye OARD SPECIALIST Source Note - Griselda Bang NP - 05/31/2022 8:25 AM KEYBOARD SPECIALIST Images from the original note were not included. Center for Preoperative Assessment and Planning Preoperative Evaluation Record Evaluation type/location: TPAP from [facility] Planned procedure site: [facility] CAM OR (Pod 4) Date: 05/31/22 NOTE: This [...] Cardiovascular Pertinent negatives: hypertension ; CAD ; IN ; CABG ; valvular heart disease; atrial [...] provided by telephone and electronically sent via [employer]. Patient verbalized understanding of preoperative plan. Blood bank needs for day of procedure: No type and screen needed Pending labs/tests include: POC Glucose The patient is on aspirin therapy for primary prevention. The bleeding risk for the planned procedure is insignificant and therefore aspirin can be continued throughout the periprocedural period. Please call the CPAP chart room clinician ([phone]) with any questions. TPAP complete Preoperative evaluation [...] Diabetes mellitus (HCC) ??? Diabetic retinopathy (CMS/HCC) ([facility]) ??? Glaucoma ??? Multiparity History Of ___ Previous Pregnancies - 7 pregnancies, 2 children - C-sections. (Added by TW Conv) ??? Nonproliferative diabetic retinopathy (CMS/HCC) ([facility]) 11/03/2009 ??? Personal history of other specified conditions History of chest pain - Stress test negative on 08/01/06 (Added by TW Conv) Past Surgical History: Procedure Laterality Date ??? MN APPENDECTOMY unkown dates per pt ??? MN DELIVERY ONLY Section - in 1972 and 1975 (Added by TW Conv) ??? MN TENDON SHEATH INCISION Hand Incision Tendon Sheath Of A Finger - right hand, III finger, 08/20 (Added by Conv) OB History No obstetric history on [...] taking differently: Take 88 mcg by mouth trauma coordinator before breakfast metFORMIN (GLUCOPHAGE) 500 mg tablet [...] last 720 hours. Kathrin index score: 100 OARD SPECIALIST documented in this encounter Miscellaneous Notes * Op Note - Makayla Ramos MD - 06/14/2022 9:24 AM CST DATE: 06/14/2022 PREOPERATIVE DIAGNOSIS: 1) Primary open angle glaucoma right eye. 2) Visually significant nuclear sclerotic cataract of right eye. POSTOPERATIVE DIAGNOSIS: same OPERATION PERFORMED: Phacoemulsification with intraocular lens implant and ab interno goniotomy right eye. SURGEON: Makayla Ramos MD MEASURING MACHINE OPERATOR: none Implants: Implant Name Type Inv. Item Serial No. Shipping Hand Lot No. LRB No. Used Action [employer] LENS IOL POSTERIOR BICONVEX OPTIC SINGLE PIECE ENVISTA 6.0X12.5 +18.0D HYDROPHOBIC ACRYLIC [id number] - [id number] - [id number] Lens [employer] Lens Iol PosteriorBiconvex Optic Single Piece Envista 6.0x12.5 +18.0d Hydrophobic Acrylic [id number] [employer] Right 1 Implanted ANESTHESIA: MAC with [...] None CONDITION ON DISCHARGE FROM OPERATING ROOM:stable OARD SPECIALIST * Perioperative Nursing Note - Fabi Mathews RN - 06/14/2022 9:18 AM KEYBOARD SPECIALIST Intraocular lens implant ordered and verified per surgeon prior to implantation OARD SPECIALIST * Pre-Procedure Instructions - Griselda Bang NP - 05/31/2022 8:20 AM CST Center for Preoperative Assessment and Planning CPAP Clinic Location: [facility] The night before your surgery: * [...] going to be admitted after surgery at [facility], COVID testing may be performed on the day of surgery, even if you are up to date on your COVID-19 vaccine. * If having surgery at [facility], you may want to bring a credit card if you want to use our Mobile Pharmacy for your discharge medications. Mobile pharmacy is not available at [facility], the [facility], or the [facility]. Outpatient Surgery: * You must have [...] with COVID-19. You test positive for COVID-19. OARD SPECIALIST * Perioperative Nursing Note - Katie Nicolas RN - 05/30/2022 2:00 PM KEYBOARD SPECIALIST Center for Preoperative Assessment and Planning Perioperative Nursing Note Telephone Preoperative Evaluation ([facility]) - TELEPHONE ONLY, NO PHYSICAL EXAM [...] (Patient takingdifferently: Take 88 mcg by mouth trauma coordinator before breakfast) 90 tablet 3 metFORMIN (GLUCOPHAGE) [...] Family members Assistance Needed: pt will have hazardous materials driver day of surgery Patient expects to be discharged to:: Private residence ENGINEERING DESIGN MANAGER NO ADDITIONAL COMMENTS/ FOLLOW UP OARD SPECIALIST * Pre-Procedure Instructions - Katie Nicolas RN - 05/30/2022 1:57 PM KEYBOARD SPECIALIST [facility] FOR PREOPERATIVE [facility]ESSMENT [facility] PLANNING (CPAP) [...] your insurance card, a photo ID (example: Container Coordinator's License) and a method of payment for [...] Chart. If you are having surgery at [facility], please arrive on the day of [...] questions, please call the CPAP Staff at [phone], Saturday-Saturday 8am-4:30pm. All patients should read the below section: All visitors/patients are being asked to wear a clean face mask when entering the hospital. COVID 19 Updates & Visitor Policy: Please access [email or web address] for the most updated information. Information on [facility]: Please view [email or web address] (Patient & Visitor Information) for additional details regarding Advanced Directive forms, AWARE, directions, parking information, lodging, Internet access, dining and more. Information on [facility] or [facility] ([facility]): Please view [email or web address] (Patient and Visitor Information) for parking/directions and more. For MyChart information, to activate account or password recovery, please go to [email or web address] or call [phone] (toll-free: [phone]). Information for Suicide Prevention: National Suicide Prevention Lifeline (7-151- 428-PMZY (3964)). Surgery Times: For patients having surgery @ [facility], [facility], [facility] or [facility] ([facility]), if your surgeon's office has not notified you of your surgery time by NOON THE BUSINESS DAY BEFORE your surgery, please call [phone] and ask for your surgeon's office Dr Ramos. For patients having surgery @ [facility], if your surgeon's office has not notified you of your surgery time by NOON THE BUSINESS DAY BEFORE your surgery, please call the surgery center [phone]. OARD SPECIALIST documented in this encounter Plan of Treatment Not on file documented as of this encounter Procedures Procedure Name Priority Date/Time Associated Diagnosis Comments POCT GLUCOSE DEVICE Routine 06/14/2022 9 :46 AM KEYBOARD SPECIALIST GONIOTOMY 06/14/2022 9:16 AM KEYBOARD SPECIALIST Nuclear sclerotic cataract of both eyes Primary open angle glaucoma of both eyes, moderate stage EXTRACTION CATARACT - PHACOEMULSIFICATION AND LENS IMPLANT 06/14/2022 9:16 AM KEYBOARD SPECIALIST Nuclear sclerotic cataract of both eyes Primary open angle glaucoma of both eyes, moderate stage POCT GLUCOSE DEVICE Routine 06/14/2022 9 :01 AM KEYBOARD SPECIALIST documented in this encounter Results * POCT glucose (06/14/2022 9:46 AM KEYBOARD SPECIALIST) Glucose, POC 86 70 - 199 mg/dL [facility] Blood 06/14/2022 9:46 AM KEYBOARD SPECIALIST 06/14/2022 9:46 AM KEYBOARD SPECIALIST us Makayla Ramos MD LAB POCT ORDERABLES - DEVICE Final Result [facility] Department [place] [address] * POCT glucose (06/14/2022 9:01 AM KEYBOARD SPECIALIST) Glucose, POC 84 70 - 199 mg/dL [facility] Blood 06/14/2022 9:01 AM KEYBOARD SPECIALIST 06/14/2022 9:01 AM KEYBOARD SPECIALIST us Makayla Ramos MD LAB POCT ORDERABLES - DEVICE Final Result [facility] Department [place] [address] documented in this encounter Visit Diagnoses Diagnosis Nuclear sclerotic cataract of both eyes Senile nuclear sclerosis Primary open angle glaucoma (POAG) of both eyes, moderate stage Nuclear sclerotic cataract of both eyes Senile nuclear sclerosis Primary open angle glaucoma of both eyes, moderate stage documented in [...] (BSS) intraocular solution As needed, Starting on Dilma 06/14/22 at 0924, Intra-Op Given 06/14/2022 9:24 AM KEYBOARD SPECIALIST 15 mL Right Eye BSS-EPINEPHrine 0.3 mg preservative free intraocular solution (total volume 500 mL) As needed, Starting on Dilma 06/14/22 at 0924, Intra-Op Given 06/14/2022 9:24 AM KEYBOARD SPECIALIST 500 mL cefuroxime (ZINACEF) 20 mg/2 mL in sodium chloride 0.9% intracameral (premix) As needed, Starting on Dilma 06/14/22 at 0001, Intra-Op Given 06/14/2022 12:01 AM KEYBOARD SPECIALIST 0.1 mL dilating cocktail ophthalmic solution 0.3 [...] During Ocular Surgery Given 06/14/2022 9:03 AM KEYBOARD SPECIALIST 0.3 mL Given 06/14/2022 8:48 AM KEYBOARD SPECIALIST 0.3 mL Lactated Ringer's (LR) infusion 30 mL/hr, intravenous, Continuous, Starting on Dilma 06/14/22 at 0900, Pre-Op Rate/Dose Verify 06/14/2022 9:17 AM KEYBOARD SPECIALIST 30 m L/hr New Bag 06/14/2022 8:48 AM KEYBOARD SPECIALIST 30 mL/hr 30 mL/hr lidocaine PF (XYLOCAINE) 10 mg/mL (1 %) preservative free injection As needed, Starting on Dilma 06/14/22 at 0925, Intra-Op Given 06/14/2022 9:25 AM KEYBOARD SPECIALIST 0.2 mL neomycin-polymyxin B-dexAMETHasone (MAXITROL) ophthalmic ointment As needed, Starting on Dilma 06/14/22 at 0925, Intra-Op Given 06/14/2022 9:25 AM KEYBOARD SPECIALIST 1 application (deactivated) prochlorperazine (COMPAZINE) injection 5 mg 5 mg, intravenous, Administer over 2 Minutes, Once as needed, nausea, vomiting, Starting on Dilma 06/14/22 at 0946, For 1 dose, Phase I, If nausea/vomiting not relieved by ondansetron within 30 minutes or if ondansetron has been given within the last 6 hours. Given 06/14/2022 9:50 AM KEYBOARD SPECIALIST 5 mg tetracaine (PF) (ALTACAINE) 0.5 % ophthalmic solution As needed, Starting on Dilma 06/14/22 at 0925, Intra-Op, Indications: Administration of Corneal AnesthesiaIndications:Administ ration of Corneal Anesthesia Given 06/14/2022 9:25 AM KEYBOARD SPECIALIST 2 drops documented in this encounter Discontinued [...] Recently Administered Medications Times are shown in KEYBOARD SPECIALIST. Scheduled Medication Order 06/12/2022 06/13/2022 06/14/2022 dilating [...] mL) (CANCELED) As needed, Starting on Dilma 06/14/22 [...] (TYLENOL) tablet 1,000 mg 1 0 06/14/2022 Carrier Fluids for Secondary Infusion - 0.9% Sodium Chloride 1 06/14/2022 ondansetron (ZOFRAN) injection 4 mg 1 06/14 sodium chloride 0.9% flush 0.5-20 mL 1 06/2022 Diet Count Last Ordered Date First Orde red Date ADULT DISCHARGE DIET 1 06/14/2022 Nursing Count Last Ordered Date First Orde red Date DISCHARGE ACTIVITY 2 06/14/2022 DISCHARGE CALL PROVIDER 2 06/14/2022 Discharge Count Last Ordered Date First Orde red Date DISCHARGE PATIENT 1 06/14/2022 documented in this encounter Care Teams Steward/Stewardess Lounge Relationship Specialty Start Date End Date Elpidio Serrato MD PCP - General Internal Medicine 06/09/18 documented as of this encounter
--- OUTSIDE RECORDS SUMMARY | 2024-04-29 14:09 | XMS_ITS | Encounter Summary ---
Author Organization [facility] Address [address] [place] [address] Phone Care Team Providers Care Consulting Services Project Manager Name Role Phone Elpidio Serrato MD Primary Care Provider [phone] Encounter Details Date Type Department Care Team (Late st Contact Info) Description 02/19/2022 Telephone [facility] Ophthalmology [address] [place] [address] Makayla Ramos MD [address] [place], [place] [id number] Social History Tobacco Use Types Packs/Day Years Used Date Smoking Tobacco: Never Smokeless Tobacco: Never Comments Unknown Sex and Gender Information Value Date Recorded Sex Assigned at Not on file Legal Sex Female 3:59 AM AUTOMOBILE MECHANIC RADIATOR Gender Identity Female 05/13/2021 4:21 PM AUTOMOBILE MECHANIC RADIATOR Sexual Orientation Not on file documented as of this encounter Miscellaneous Notes * Telephone Encounter - Chantelle Lorenzana - 02/19/2022 12:57 PM CDT Patient returned my phone call about surgery. Per Dr. Ramos patient needs to be seen in May upon her return and can schedule surgery for her. I scheduled a follow up appointment with a visual field and am holding a januaray surgery date. Patient has my phone # if anything changes on her end. documented in this encounter Plan of Treatment Not on file documented as of this encounter Visit Diagnoses Not on filedocumented in this encounter Care Teams Consulting Services Project Manager Relationship Specialty Start Date End Date Elpidio Serrato MD PCP - General Internal Medicine 06/09/18 documented as of this encounter
--- OUTSIDE RECORDS SUMMARY | 2024-04-29 14:09 | XMS_ITS | Encounter Summary ---
Author Organization [facility] Address [address] [place] [address] Phone Care Team Providers Care Yarrow Gatherer Name Role Phone Elpidio Serrato MD Primary Care Provider [phone] Reason for Visit * Diagnostic Imaging (Routine) - Closed Specialty Diagnoses / Procedures Referred By Constantino t Referred To Contact Diagnoses Primary open angle glaucoma (POAG) of both eyes, moderate stage Procedures Forrest Visual Field - OU - Both Eyes Makayla Ramos MD [address] [place] [address] Phone: tel: fax: [facility] (All Locations) Referral ID Status Reason Start Date Expiration Date Visits Re quested Visits Authorized [id number] Closed 02/19/2022 03/21/2023 1 1 Encounter Details Date Type Department Care Team (Late st Contact Info) Description 06/04/2022 9:10 AM ELEMENTARY SCHOOL REGISTRAR Imaging Exam [facility] Ophthalmology [address] [facility] [address] [place] [address] Social History Tobacco Use Types Packs/Day Years [...] on file Legal Sex Female 3:59 AM ELEMENTARY SCHOOL REGISTRAR Gender Identity Female 05/13/2021 4:21 PM ELEMENTARY SCHOOL REGISTRAR Sexual Orientation Not on file documented as of this encounter Plan of Treatment Not on file documented as of this encounter Procedures Procedure Name Priority Date/Time Associated Diagnosis Comments FORREST VISUAL FIELD - OU - BOTH EYES Routine 06/04/2022 9:00 AM ELEMENTARY SCHOOL REGISTRAR Primary open angle glaucoma (POAG) of both eyes, moderate stage documented in this encounter Results * Forrest Visual Field - OU - Both Eyes (06/04/2022 9:00 AM ELEMENTARY SCHOOL REGISTRAR) Pattern Deviation OS 3.86 dB CONTINUUM Pattern Deviation OD 8.62 dB CONTINUUM Mean Deviation OS -3.66 dB CONTINUUM Mean Deviation OD -6.37 dB CONTINUUM Anatomical Region Laterality Modality Head Other Narrative 06/05/2022 7:10 AM ELEMENTARY SCHOOL REGISTRAR Right Eye Fixation was good. Cooperation was [...] on filedocumented in this encounter Care Teams Yarrow Gatherer Relationship Specialty Start Date End Date Elpidio Serrato MD PCP - General Internal Medicine 06/09/18 documented as of this encounter
--- OUTSIDE RECORDS SUMMARY | 2024-04-29 14:09 | XMS_ITS | Encounter Summary ---
Author Organization [facility] Address [address] [place] [address] Phone Care Team Providers Care Broom Man Name Role Phone Elpidio Serrato MD Primary Care Provider [phone] Reason for Visit * Reason Onset Date Comments 06/14/2022 surgery 05/29/2022 Encounter Details Date Type Department Care Team (Late st Contact Info) Description 05/29/2022 Telephone [facility] Ophthalmology [facility] [place] [address] Geovanna Doe COA 06/14/2022 surgery Social History Tobacco Use Types Packs/Day Years [...] on file Legal Sex Female 3:59 AM UNDERGROUND MINE MACHINERY MECHANIC Gender Identity Female 05/13/2021 4:21 PM UNDERGROUND MINE MACHINERY MECHANIC Sexual Orientation Not on file documented as of this encounter Miscellaneous Notes * Telephone Encounter - Geovanna Doe COA - 06/13/2022 8:56 AM UNDERGROUND MINE MACHINERY MECHANIC Spoke to patient and gave all surgery details for surgery scheduled on 06/14/[address] Ramos Arrival time: 7:30am Surgery is at [facility] on the 4th floor. Remember; nothing to eat or drink after midnight the night before and make sure they have a coach driver to drive them home (family member or friend). For the patient's safety, Uber/Taxis are not acceptable transportation after discharge. Address: [facility], 4th floor surgery center. [address] [place] [address] RGROUND MINE MACHINERY MECHANIC * Telephone Encounter - Geovanna Doe COA - 05/29/2022 3:06 PM UNDERGROUND MINE MACHINERY MECHANIC Phoned patient to schedule surgery: [facility] Pre-Op appt scheduled 06/04/2022 Discussed surgery date: 06/14/2022 Location: CAM [x] Ball [] Plan from notes: Allergies: Allergies Allergen Reactions Pseudoephedrine Other (See comments) and Palpitations Reaction: UNKNOWN, Valacyclovir Other (See comments) put me in renal failure Ascan:[x] yes [] no Order IOL [x] Sent through system for CAM Postop appointment [x] Prep for case[x] Letter mailed[x] Prior auth[x] No PA needed Line up (arrival time) [x] RGROUND MINE MACHINERY MECHANIC RGROUND MINE MACHINERY MECHANIC RGROUND MINE MACHINERY MECHANIC RGROUND MINE MACHINERY MECHANIC RGROUND MINE MACHINERY MECHANIC documented in this encounter Plan of Treatment Not on file documented as of this encounter Visit Diagnoses Not on filedocumented in this encounter Care Teams Broom Man Relationship Specialty Start Date End Date Elpidio Serrato MD PCP - General Internal Medicine 06/09/18 documented as of this encounter
--- OUTSIDE RECORDS SUMMARY | 2024-04-29 14:09 | XMS_ITS | Encounter Summary ---
Author Organization [facility] Healthcare Address [address] [place] [address] Care Team Providers Care Corner Trimmer Operator Name Role Phone Elpidio Serrato MD Primary Care Provider [phone] Reason for Visit * Auth/Cert Specialty Diagnoses / Procedures Referred By Contac t Referred To Contact Diagnoses Nuclear sclerotic cataract of both eyes Primary open angle glaucoma of both eyes, moderate stage Nuclear sclerotic cataract of both eyes [H25.13] Primary open angle glaucoma of both eyes, moderate stage [H40.1132] Procedures LA XCAPSL CTRC RMVL INSJ IO LENS PROSTH W/O ECP LA GONIOTOMY EXTRACTION CATARACT - PHACOEMULSIFICATION AND LENS IMPLANT - right eye GONIOTOMY - right eye Referral ID Status Reason Start Date Expiration Date Visits Re quested Visits Authorized [id number] 1 1 Encounter Details Date Type Department Care Team (Late st Contact Info) Description 06/14/2022 9:17 AM HARD TILE SETTER Anesthesia Event [facility] [address] [place] [address] Fabi Andrade MD [address] [place] [address] Malika So NP [address] [facility] [id number] [place] [address] Anesthesia Record Procedure Summary Procedure Name Responsible Anesthesiologist Anesthesia Start Time Anesthesia Stop Time EXTRACTION CATARACT - PHACOEMULSIFICATION AND LENS IMPLANT - right eye (Right: Eye) Fabi Andrade MD 06/14/22 0917 06/14/22 0943 Events Date Time Event Comment 06/14/2022 0819 In Preop 0900 0916 In Room 0917 An Start 0917 An Start Data 0918 Start Supplemental O2 0918 An Induction The patient was reevaluated immediately before moderate or deep sedation use and before anesthesia induction. 0920 Anesthesia Ready 0924 Proc Start 0924 Incision Start 0934 Proc Fin 0936 an stop data 0937 Out of Room 0943 Handoff to RN I completed my handoff [...] Patient disposition at the time of handoff: PACU 0943 An Stop Meds Name Total midazolam PF 1 mg fentaNYL 100 mcg Lactated Ringer's (LR) infusion 200 mL * Agents Name O2% N2O O2 * Blood No blood administrations on file. Lines, Drains, and Airways Type Details Placement Removal RETIRED Surgical Site 06/14/22; 08; Ri ght; Eye; 01/20/24; 0656; Removal date unknown/not present on admission 06/14/22 0838 by Fabi Mathews RN 01/20/24 0656 by Joanna Ramos RN Peripheral IV Placement Date: 06/14/22; Placement Time: 09; Catheter Size: 20 G; Orientation: Anterior, Left; Location: Forearm; Inserted by: denise berry; Insertion Attempts: 1; Removal Date: 06/14/22; Removal Time: 1048 06/14/22 0905 by Denise Berry, RN 06/14/22 1048 by Lee Ann Antonio RN documented in this encounter Social History [...] on file Legal Sex Female 3:59 AM HARD TILE SETTER Gender Identity Female 05/13/2021 4:21 PM HARD TILE SETTER Sexual Orientation Not on file documented as of this encounter OR Notes * Anesthesia Postprocedure Evaluation - Wally Man MD - 06/14/2022 10:43 AM CST Patient: Isabelle Lutz Procedure Summary Date: 06/14/22 Room / Location: [facility] OR POD 4 ROOM P / [facility] OR POD 4 Anesthesia Start: 916 Anesthesia Stop: 942 Procedures: EXTRACTION CATARACT - PHACOEMULSIFICATION AND LENS IMPLANT - right eye (Right: Eye) GONIOTOMY - right eye (Right: Eye) Diagnosis: Nuclear sclerotic cataract of both eyes Primary open angle glaucoma of both eyes, moderate stage (Nuclear sclerotic cataract of both eyes [H25.13]) (Primary open angle glaucoma of both eyes, moderate stage [H40.1132]) Surgeons: Makayla Ramos MD Responsible Provider: Fabi Andrade MD Anesthesia Type: MAC ASA Status: 3 Anesthesia Type: MAC Last vitals BP 101/51 Pulse 72 Temp 36 ??C (96.8 ??F) (Temporal) Resp 14 SpO2 95% Anesthesia Post Evaluation Patient location during evaluation: PACU Patient participation: complete - patient participated Level of consciousness: fully awake Pain score: 0 Pain management: adequate Airway patency: adequate and patent Cardiovascular status: acceptable and hemodynamically stable Respiratory status: acceptable and room air Hydration status: acceptable Pt is: normothermic Nausea/Vomiting status: none No notable events documented. TILE SETTER * Anesthesia Preprocedure Evaluation - Fabi Andrade MD - 05/31/2022 8:25 AM CST Images from the original note were not included. [facility] for Preoperative Assessment and Planning Preoperative Evaluation Record Evaluation type/location: TPAP from [facility] Planned procedure site: [facility] OR (Pod 4) Date: 05/31/22 NOTE: [...] Cardiovascular Pertinent negatives: hypertension ; CAD ; ME ; CABG ; valvular heart disease; atrial [...] provided by telephone and electronically sent via Meetapp. Patient verbalized understanding of preoperative plan. Blood bank needs for day of procedure: No type and screen needed Pending labs/tests include: POC Glucose The patient is on aspirin therapy for primary prevention. The bleeding risk for the planned procedure is insignificant and therefore aspirin can be continued throughout the periprocedural period. Please call the CPAP chart room clinician ([phone]) with any questions. TPAP complete Preoperative evaluation [...] albuminuria creatinine ratio less than 30 mg/g ([facility]) Past Medical History: Diagnosis Date ??? Cataract ??? Diabetes mellitus ([facility]) ??? Diabetic retinopathy (CMS/HCC) ([facility]) ??? Glaucoma ??? Multiparity History Of ___ Previous Pregnancies - 7 pregnancies, 2 children - C-sections. (Added by TW Conv) ??? Nonproliferative diabetic retinopathy (CMS/HCC) ([facility]) 11/03/2009 ??? Personal history of other specified conditions History of chest pain - Stress test negative on 08/01/06 (Added by TW Conv) Past Surgical History: Procedure Laterality Date ??? LA APPENDECTOMY unkown dates per pt ??? LA DELIVERY ONLY Section - in 1972 and 1975 (Added by TW Conv) ??? LA TENDON SHEATH INCISION Hand Incision Tendon Sheath Of A Finger - right hand, III finger, 10 (Added by TW Conv) OB History No [...] mg enteric coated tablet 05/30/2022 -- -- ProviderAldair MD atorvastatin (LIPITOR) 20 mg tablet 05/30/2022 [...] supply OK CALCIUM ORAL 05/30/2022 -- -- Provider, MD Aldair celecoxib (CeleBREX) 200 mg capsule 05/30/2022 09/19/21 [...] taking differently: Take 88 mcg by mouth ict teacher before breakfast metFORMIN (GLUCOPHAGE) 500 mg tablet [...] Thyroid Disorder - mother (Added by Conv) ??? Diabetes type II Other Type II Diabetes Mellitus - mother (Added by Conv) ??? Anesthesia problems Neg Hx There [...] Medical history, medications, and allergies reviewed. Attestation: This PAT evaluation Airway Exam: Mallampati: II Cervical ROM: FROM Cardiovascular Exam: Rate: regular Rhythm: regular Pulmonary Exam: LCTA, bilat Anesthesia Plan ASA 3 My patient is approved for the Anesthesia Controlled Medication protocol when under care of a CUP TRIMMING MACHINE OPERATOR Planned anesthesia: MAC Induction: Induction: intravenous. Postoperative Plan: Patient's planned disposition post procedure is Outpatient. Informed Consent: Discussed plan with CUP TRIMMING MACHINE OPERATOR. Anesthesia plan and risks discussed with patient. Consent and Attending signature: I and/or my designee have discussed the anesthesia plan, benefits, possible alternatives, parental presence at time of induction (if indicated), and clinically relevant risks that may include dental injury, unintentional awareness, and/or other complications. The patient and/or parent/legal guardian understand, and agree to proceed. All questions answered. TILE SETTER TILE SETTER documented in this encounter Plan of Treatment Not on file documented as of this encounter Visit Diagnoses Not on filedocumented in this encounter Administered Medications Inactive Administered Medications - up to 3 most recent administrations Medication Order MAR Action Action Date Dose Rate Site fentaNYL (SUBLIMAZE) preservative free injection intravenous, As needed, Starting on Dilma 06/14/22 at 0919, Anesthesia Intra-op Given 06/14/2022 9:31 AM HARD TILE SETTER 25 mcg Given 06/14/2022 9:28 AM HARD TILE SETTER 25 mcg Given 06/14/2022 9:25 AM HARD TILE SETTER 25 mcg Lactated Ringer's (LR) infusion 30 mL/hr, intravenous, Continuous, Starting on Dilma 06/14/22 at 0900, Pre-Op Rate/Dose Verify 06/14/2022 9:17 AM HARD TILE SETTER 30 mL/hr New Bag 06/14/2022 8:48 AM HARD TILE SETTER 30 mL/hr 30 mL/hr midazolam (VERSED) 1 mg/mL preservative free injection intravenous, Administer over 2 Minutes, As needed, Starting on Dilma 06/14/22 at 0917, Anesthesia Intra-op Given 06/14/2022 9:24 AM HARD TILE SETTER 0.5 mg Given 06/14/2022 9:17 AM HARD TILE SETTER 0.5 mg documented in this encounter Care Teams Corner Trimmer Operator Relationship Specialty Start Date End Date Elpidio Serrato MD PCP - General Internal Medicine 06/09/18 documented as of this encounter
--- OUTSIDE RECORDS SUMMARY | 2024-04-29 14:09 | XMS_ITS | Encounter Summary ---
Author Organization [facility] Address [address] [place] [address] Phone Care Team Providers Care Program Aide Name Role Phone Elpidio Serrato MD Primary Care Provider [phone] Reason for Visit * Reason Onset Date Comments 08/16/2022 Surgery 06/25/2022 Encounter Details Date Type Department Care Team (Late st Contact Info) Description 06/25/2022 Telephone [facility] Ophthalmology [address] [facility] [address], [address] [place] [address] Geovanna Doe COA 08/16/2022 Surgery [...] on file Legal Sex Female 3:59 AM BIOLOGICAL SCIENCE TECHNICIAN FISH Gender Identity Female 05/13/2021 4:21 PM BIOLOGICAL SCIENCE TECHNICIAN FISH Sexual Orientation Not on file documented as of this encounter Miscellaneous Notes * Telephone Encounter - Geovanna Doe COA - 06/25/2022 9:21 AM BIOLOGICAL SCIENCE TECHNICIAN FISH Phoned patient to schedule surgery: Discussed surgery date: 08/16/2022 Location: [facility] [x] [place] [] Plan from notes: CEIOL/goniotomy OS 45 minutes, MAC Allergies: Allergies Allergen Reactions Pseudoephedrine Other (See comments) and Palpitations Reaction: UNKNOWN, Valacyclovir Other (See comments) put me in renal failure Ascan:[x] yes [] no Second eye (order added) and release [x] Order IOL: [] Sent through system for [facility] Postop appointment: [x] Prep for case: [x] Letter mailed: [x] Prior auth: [] Line up (arrival time) [] OGICAL SCIENCE TECHNICIAN FISH OGICAL SCIENCE TECHNICIAN FISH OGICAL SCIENCE TECHNICIAN FISH documented in this encounter Plan of Treatment Not on file documented as of this encounter Visit Diagnoses Not on filedocumented in this encounter Care Teams Program Aide Relationship Specialty Start Date End Date Elpidio Serrato MD PCP - General Internal Medicine 06/09/18 documented as of this encounter
--- OUTSIDE RECORDS SUMMARY | 2024-04-29 14:10 | XMS_ITS | Encounter Summary ---
Author Organization [facility] [employer] [facility] Address [address] [place] [address] Phone Care Team Providers Care Supervisor Files Name Role Phone Elpidio Serrato MD Primary Care Provider [phone] Encounter Details Date Type Department Care Team (Latest Contact Info) Description 12/25/2021 9:00 AM CDT Telemedicine [facility] Endocrinology Metabolism and Lipid [address] [facility] 13th [place] [address] [place] [address] Merna Bell MD [address] [facility] [address] [place] [address] 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, with long-term current use of insulin, unspecified laterality (HCC) (Primary Dx); Acquired hypothyroidism; Mixed hyperlipidemia; Chronic kidney disease (CKD) stage G3b/A1, moderately decreased glomerular filtration rate (GFR) between 30-44 mL/min/1.73 square meter and albuminuria creatinine ratio less than 30 mg/g (HCC) Social History Tobacco Use Types Packs/Day Years Used Date Smoking Tobacco: Never Smokeless Tobacco: Never Comments Unknown Sex and Gender Information Value Date Recorded Sex Assigned at Not on file Legal Sex Female 3:59 AM FOOD PRODUCTS TESTER Gender Identity Female 05/13/2021 4:21 PM FOOD PRODUCTS TESTER Sexual Orientation Not on file documented as of this encounter Progress Notes * Merna Bell MD - 12/25/2021 9:00 AM CDT Images from the original note were not included. This was a telemedicine visit with Isabelle Lutz alone which took place via Telephone No Internet/Computer. During the visit, I was located at home and the patient was located at home in the [facility]. The patient visit started at 0915 and ended at 0937. My total encounter time on 12/25/2021 was40 minutes which was spent in the activities documented in the note. This includes time spent priorto the visit and after the visit in direct care of the patient. This time does not include time spent in any separately reportable services. The patient: has been informed that the visit may not be secure and acknowledged the information. The option of participating in a telephone or video visit during the [facility]-[address] [place] [address] emergencywas explained to them. After being given an opportunity to ask questions about and discuss this type of visit, they verbally consented to proceeding with the telephone/video visit and understand thatthis service replaces an office visit. Isabelle Lutz is a 71 y.o. female who returns for follow up of Type 2 Diabetes, Type 1 Diabetes, Hypertension and Hyperlipidemia. Diabetes was diagnosed at age 45, 1994, duration 27 years. ??Her A1c was??7.2%??on 01/13/2021.? Current therapy: Lantus 40??units Humalog 10 units with meals,??generally 4 injections of insulin per day. ??She misses occasional doses if she is not going to eat metformin 500 mg BID, sometimes missing second dose. Ozempic, 1 mg weekly Jardiance, 10 mg ??daily. ? She is now using the Dexcom G6??CGM, which she finds very helpful, and has reduced the frequency ofher fingerstick glucose tests.?She uses it continuously??for??frequent??monitoring, safety and to adjust insulin doses, uses the reader so??the most recent download was??01/24/21.?She has??not had many??lows.??Her Dexcom is set to alarm at 80 mg/dl. ?? Takes humalog??regularly??with breakfast,??is less consistent with other meals.? CGM Interpretation Wear time is 100%. Mean BG 122 mg/dl. TIR 83%, TAR 10%, 6% lows. Pattern analysis: Flat profile during the day, lows occur at night. For recommendations see plan. ?? By way of complications Isabelle Lutz reports no diabetic retinopathy She had laser to her right eye in May,,??for glaucoma, not for diabetes. ??She is also being followed for cataracts, see optho every few months.?Follow-up showed improvement. ??She has mildly reduced kidney function, which is not new, GFR 50.?She had an episode of significant BARB with shingles admission a few years ago. ??She is not exercising, says that her weight is about the same. ? Isabelle has severe osteoarthritis??of her knees, and has had a couple of minor fractures with minimal trauma, right tibial plateau fracture 2018. ??She has a number of risk factors for osteoporosis, including age, thyroid disease, falls. ??Her last DXA was in 2013, report unable to open. ??A repeatDXA??was done in July,:?Bone Mineral Density (BMD) of the left hip total was found to be 0.910 gm/cm2. This corresponds to a T-score standard deviations from the mean of young adults of -0.3. Femoral neck is 0.708 gm/cm2 with a T-score ??of ??-1.3. When compared to the previous study of 05/11/14 there has been a measured 0.037 gm/cm -4.0% decrease which is considered significant. ?? Patient Active Problem List Diagnosis ??? 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 atorvastatin (LIPITOR) 20 mg tablet, TAKE 1 TABLET DAILY, Disp: 90 tablet, Rfl: 3 ??? blood glucose diagnostic (glucose blood) strip, Testing once daily, Disp: 100 each, Rfl: 2 ??? brimonidine-timoloL (Combigan) 0.2-0.5 % ophthalmic solution, Administer 1 drop into both eyes 2 (two) times a day, Disp: 10 mL, Rfl: 11 ??? celecoxib (CeleBREX) 200 mg capsule, TAKE 1 CAPSULE DAILY., Disp: 90 capsule, Rfl: 3 ??? ergocalciferol (VITAMIN D) 50,000 unit capsule, TAKE 1 CAPSULE BY MOUTH ONCE WEEKLY, Disp: 12 capsule, Rfl: 0 ??? HUMALOG KWIKPEN INSULIN 100 unit/mL insulin pen, INJECT 10 UNITS SUBCUTANEOUSLY AT BREAKFAST, 8TO 12 UNITS AT LUNCH, AND 5 UNITS WITH SNACKS, Disp: 45 mL, Rfl: 3 ??? Jardiance 10 mg tablet, TAKE 1 TABLET DAILY, Disp: 90 tablet, Rfl: 3 ??? LANTUS 100 unit/mL (3 mL) pen for injection, INJECT 48 UNITS SUBCUTANEOUSLY DAILY, Disp: 45 mL,Rfl: 2 ??? latanoprost (XALATAN) 0.005 % ophthalmic solution, INSTILL 1 DROP INTO BOTH EYES NIGHTLY, Disp:7.5 mL, Rfl: 1 ??? levothyroxine (SYNTHROID) 88 mcg tablet, TAKE 1 TABLET BY MOUTH EVERY DAY, Disp: 90 tablet, Rfl: 3 ??? metFORMIN (GLUCOPHAGE) 500 mg tablet, TAKE 1 TABLET BY MOUTH TWICE A DAY, Disp: 180 tablet, Rfl: 3 ??? olmesartan-hydrochlorothiazide (BENICAR HCT) 40-12.5 mg per tablet, TAKE 1 TABLET BY MOUTH EVERY DAY, Disp: 90 tablet, Rfl: 2 ??? Ozempic 1 mg/dose (4 mg/3 mL) pen injector injection, INJECT 1MG SUBCUTANEOUSLY ONCE A WEEK., Disp: 9 mL, Rfl: 3 ??? pen needle, diabetic (BD ULTRA-FINE WENDY PEN NEEDLE) 32 gauge x 5/32 needle, Use 4X daily, Disp: 300 each, Rfl: 3 ??? predniSONE (DELTASONE) 20 mg tablet, TAKE 1 TABLET (20 MG TOTAL) BY MOUTH DAILY FOR 5 DAYS., Disp: , Rfl: ROS: See HPI. All other systems are negative. There were no vitals taken for this visit. Physical Exam No results found for this or any previous visit (from the past 24 hour(s)). Chemistry Lab Results Component Value Date SODIUM 142 10/23/2021 POTASSIUM 4.9 10/23/2021 CHLORIDE 112 (H) 10/23/2021 CO2 20 10/23/2021 ANIONGAP 8 01/13/2021 BUNSER 46 (H) 10/23/2021 CREATININE 1.26 (H) 10/23/2021 GLUCOSE 103 (H) 10/23/2021 CALCIUM 9.5 10/23/2021 BILITOT 0.2 07/13/2020 PROTEIN 7.5 06/17/2016 ALBUMIN 4.3 10/23/2021 GFRNAA 50 (L) 01/13/2021 ALKPHOS 87 07/13/2020 AST 25 07/13/2020 ALT 17 07/13/2020 PHOS 4.0 10/23/2021 MAGNESIUM 2.3 06/17/2016 Lab Results Component Value Date SODIUM 142 10/23/2021 POTASSIUM 4.9 10/23/2021 CHLORIDE 112 (H) 10/23/2021 CREATININE 1.26 (H) 10/23/2021 BUN 31 (H) 03/31/2019 CALCIUM 9.5 10/23/2021 PHOS 4.0 10/23/2021 ALBUMIN 4.3 10/23/2021 AST 25 07/13/2020 ALT 17 07/13/2020 ALKPHOS 87 07/13/2020 Lab Results Component Value Date MALBCRTRAT 15.7 12/03/2016 @CBC@ Lab Results Component Value Date TSH 2.42 10/23/2021 FREET4 1.39 12/09/2017 No results found for: CPEPTIDE Lab Results Component Value Date CHOL 218 (H) 10/23/2021 TRIG 223 (H) 10/23/2021 HDLC 50 03/31/2019 LDLDIRECT 102 03/31/2019 Type 2 diabetes mellitus (CMS/[facility]) Glucose control appears to be excellent. The biggest concern is lows at night. I suggest skipping the metformin in the evening. If lows persist, then decrease Lantus to 38 units. Otherwise, no changes. A1c is ordered for next labs. Hyperlipidemia LDL is much higher than it should be at 140 mg/dl. Pt states that she misses evening medications attimes. Rec: Take atorvastatin in the morning, then recheck lipid panel. Hypothyroidism TSH has been OK, will recheck. No changes. Chronic kidney disease (CKD) stage G3b/A1, moderately decreased glomerular filtration rate (GFR) between 30-44 mL/min/1.73 square meter and albuminuria creatinine ratio less than 30 mg/g (HCC) Pt is showing progressive loss of kidney function. She is on the kidney protective medications. I will recheck kidney function with next labs. Orders Placed This Encounter Procedures ??? Hemoglobin A1c Standing Status: Future Number of Occurrences: 1 Standing Expiration Date: 12/25/2022 ??? Lipid panel Standing Status: Future Number of Occurrences: 1 Standing Expiration Date: 12/25/2022 ??? Renal function panel Standing Status: Future Number of Occurrences: 1 Standing Expiration Date: 12/25/2022 ??? PTH Standing Status: Future Number of Occurrences: 1 Standing Expiration Date: 12/25/2022 ??? TSH reflex to free T4 Standing Status: Future Number of Occurrences: 1 Standing Expiration Date: 12/25/2022 Merna Bell MD 12/25/2021 2:09 PM documented in this encounter Miscellaneous Notes * Assessment & Plan Note - Merna Bell MD - 12/25/2021 2:08 PM CDT Associated Problem(s): Chronic kidney disease (CKD) stage G3b/A1, moderately decreased glomerular filtration rate (GFR) between 30-44 mL/min/1.73 square meter and albuminuria creatinine ratio less than 30 mg/g (HCC) Pt is showing progressive loss of kidney function. She is on the kidney protective medications. I will recheck kidney function with next labs. * Assessment & Plan Note - Merna Bell MD - 12/25/2021 2:07 PM CDT Associated Problem(s): Hypothyroidism TSH has been OK, will recheck. No changes. * Assessment & Plan Note - Merna Bell MD - 12/25/2021 2:06 PM CDT Associated Problem(s): Hyperlipidemia LDL is much higher than it should be at 140 mg/dl. Pt states that she misses evening medications attimes. Rec: Take atorvastatin in the morning, then recheck lipid panel. * Assessment & Plan Note - Merna Bell MD - 12/25/2021 2:03 PM CDT Associated Problem(s): DM2 (diabetes mellitus, type 2) (HCC) Glucose control appears to be excellent. The biggest concern is lows at night. I suggest skipping the metformin in the evening. If lows persist, then decrease Lantus to 38 units. Otherwise, no changes. A1c is ordered for next labs. documented in this encounter Plan of Treatment Not on file documented as of this encounter Procedures Procedure Name Priority Date/Time Associated Diagnosis Comments THYROID FUNCTION CASCADE Routine 06/25/2022 8:40 AM FOOD PRODUCTS TESTER Acquired hypothyroidism PTH Routine 06/25/2022 8:40 AM FOOD PRODUCTS TESTER Chronic kidney disease (CKD) stage G3b/A1, moderately decreased glomerular filtration rate (GFR) between 30-44 mL/min/1.73 square meter and albuminuria creatinine ratio less than 30 mg/g ([facility]) HEMOGLOBIN A1C Routine 06/25/2022 8:40 AM FOOD PRODUCTS TESTER 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50 mIU/L [facility] Blood specimen (specimen) 06/25/2022 8:40 AM FOOD PRODUCTS TESTER 06/25/2022 8:41 AM FOOD PRODUCTS TESTER us Merna Bell MD LAB BLOOD ORDERABLES Final Re sult [facility] [address] [place] [address] * PTH (06/25/2022 8:40 AM FOOD PRODUCTS TESTER) Pathologist [facility] Parathyroid hormone, intact 71 16 - 77 pg/mL [facility] Comment: Interpretive Guide ?Intact PTH ? Calcium ? ------- Normal Parathyroid ?Normal ? Normal Hypoparathyroidism ?Low or Low Normal ?Low Hyperparathyroidism ?? Primary ?Normal or High ? High ?? Secondary ?High ? Normal or Low ?? Tertiary ? High ? High Non-Parathyroid ?? Hypercalcemia ?Low or Low Normal ?High Blood specimen (specimen) 06/25/2022 8:40 AM FOOD PRODUCTS TESTER 06/25/2022 8:41 AM FOOD PRODUCTS TESTER us Merna Bell MD LAB BLOOD ORDERABLES Final Re sult [facility] [address] [phone] * (ABNORMAL) Renal function panel (06/25/2022 8:40 AM FOOD PRODUCTS TESTER) Glucose 95 65 - 99 mg/dL [facility] Comment: ? Fasting reference interval BUN 40(H) 7 - 25 mg/dL [facility] Creatinine 1.15(H) 0.60 - 1.00 mg/dL [facility] eGFR 50(L) > OR = 60 mL/min/1.7 3m2 [facility] Comment: The eGFR is based on the CKD-EPI 2020 equation. To calculate the new eGFR from a previous Creatinine or Cystatin C result, go to https://www.kidney.org/professionals/ kdoqi/gfr%5Fcalculator BUN/creat ratio 35(H) 6 - 22 (calc) [facility] Sodium 144 135 - 146 mmol/L [facility] Potassium, pl 5.1 3.5 - 5.3 mmol/L [facility] Chloride 110 98 - 110 mmol/L [facility] CO2 22 20 - 32 mmol/L [facility] Calcium 9.4 8.6 - 10.4 mg/dL [facility] Phosphorus, sr 4.2 2.1 - 4.3 mg/dL [facility] Albumin 4.1 3.6 - 5.1 g/dL [facility] Blood specimen (specimen) 06/25/2022 8:40 AM FOOD PRODUCTS TESTER 06/25/2022 8:41 AM FOOD PRODUCTS TESTER Merna Bell MD LAB BLOOD ORDERABLES Final Re sult Performing Organization Address City/[facility]/ZIP Co de Phone Number [facility] [address] [address] [phone] * (ABNORMAL) Lipid panel (06/25/2022 8:40 AM FOOD PRODUCTS TESTER) Pathologist [facility] Cholesterol 173 <200 mg/dL [facility] HDL 49(L) > OR = 50 mg/dL [facility] Triglycerides 108 <150 mg/dL [facility] LDL 104(H) mg/dL (calc) [facility] Comment: Reference range: <100 Desirable range <100 mg/dL for primary prevention; ?? <70 mg/dL for patients with CHD or diabetic patients with > or = 2 CHD risk factors. LDL-C is now calculated using the Mikie-Christian calculation, which is a validated novel method providing better accuracy than the Friedewald equation in the estimation of LDL-C. Mikie LOPEZ et al. VIOLA. 2013;310(19): 3943-5988 (http://education.[employer]/faq/QST309) Chol/HDL ratio 3.5 <5.0 (calc) [facility] Non-HDL, (LDL+VLDL) 124 <130 mg/dL (calc) [facility] Comment: For patients with diabetes plus 1 major ASCVD risk factor, treating to a non-HDL-C goal of <100 mg/dL (LDL-C of <70 mg/dL) is considered a therapeutic option. Blood specimen (specimen) 06/25/2022 8:40 AM FOOD PRODUCTS TESTER 06/25/2022 8:41 AM FOOD PRODUCTS TESTER Merna Bell MD LAB BLOOD ORDERABLES Final Re sult [facility] [address] [address] [phone] * Hemoglobin A1c (06/25/2022 8:40 AM FOOD PRODUCTS TESTER) Hgb A1C 5.4 <5.7 % of total Hgb [facility] Comment: For the purpose of screening for the presence of diabetes: <5.7% ? Consistent with the absence of diabetes 5.7-6.4% ?Consistent with increased risk for diabetes ?(prediabetes) > or =6.5% ??Consistent with diabetes This assay result is consistent with a decreased risk of diabetes. Currently, no consensus exists regarding use of hemoglobin A1c for diagnosis of diabetes in children. According to [place] Diabetes Association (ADA) guidelines, hemoglobin A1c <7.0% represents optimal control in non- diabetic patients. Different metrics may apply to specific patient populations. Standards of Medical Care in Diabetes(ADA). ?? 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 predniSONE (DELTASONE) 20 mg tablet TAKE 1 TABLET (20 MG TOTAL) BY MOUTH DAILY FOR 5 DAYS. 11/27/2021 05/30/2022 added in this encounter Care Teams Supervisor Files Relationship Specialty Start Date End Date Elpidio Serrato MD PCP - General Internal Medicine 06/09/18 documented as of this encounter
--- OUTSIDE RECORDS SUMMARY | 2024-04-29 14:10 | XMS_ITS | Encounter Summary ---
Author Organization [facility] Address [address] [place] [address] Phone Care Team Providers Care Spinning Machine Operator Name Role Phone Elpidio Serrato MD Primary Care Provider [phone] Encounter Details Date Type Department Care Team (Late st Contact Info) Description 01/02/2022 Telephone [facility] Endocrinology Metabolism and Lipid [address] [facility] 5th [place] [address] [place] [id number] Jose Antonio Chang EMT Social History Tobacco Use Types Packs/Day Years Used Date Smoking Tobacco: Never Smokeless Tobacco: Never Comments Unknown Sex and Gender Information Value Date Recorded Sex Assigned at Not on file Legal Sex Female 3:59 AM TAX SENIOR ASSOCIATE Gender Identity Female 05/13/2021 4:21 PM TAX SENIOR ASSOCIATE Sexual Orientation Not on file documented as of this encounter Miscellaneous Notes * Telephone Encounter - Jose Antonio Chang EMT - 01/02/2022 10:59 AM CDT CMN SENT documented in this encounter Plan of Treatment Not on file documented as of this encounter Visit Diagnoses Not on filedocumented in this encounter Care Teams Spinning Machine Operator Relationship Specialty Start Date End Date Elpidio Serrato MD PCP - General Internal Medicine 06/09/18 documented as of this encounter
--- OUTSIDE RECORDS SUMMARY | 2024-04-29 14:10 | XMS_ITS | Encounter Summary ---
Author Organization [facility] Address [address] [place] [address] Phone Care Team Providers Care Newspaper Inserter Name Role Phone Elpidio Serrato MD Primary Care Provider [phone] Encounter Details Date Type Department Care Team (Late st Contact Info) Description 02/21/2021 Telephone [facility] Scheduling [address] [place] [address] Merna Bell MD [address] [facility] [address] [place] [address] Social History Tobacco Use Types Packs/Day Years Used Date Smoking Tobacco: Never Smokeless Tobacco: Never Comments Unknown Sex and Gender Information Value Date Recorded Sex Assigned at Not on file Legal Sex Female 3:59 AM TAPE CONTROLLED MACHINE STITCHER Gender Identity Female 05/13/2021 4:21 PM TAPE CONTROLLED MACHINE STITCHER Sexual Orientation Not on file documented as of this encounter Miscellaneous Notes * Telephone Encounter - Mitzi Deleon COA - 02/21/2021 1:14 PM CDT Images from the original note were not included. Arthur: [id number] CeleBREX 200MG capsules Status:Approved FEP [place] Effecrtive Dates:01/22/21 to 02/21/22 documented in this encounter Plan of Treatment Not on file documented as of this encounter Visit Diagnoses Not on filedocumented in this encounter Care Teams Newspaper Inserter Relationship Specialty Start Date End Date Elpidio Serrato MD PCP - General Internal Medicine 06/09/18 documented as of this encounter
--- OUTSIDE RECORDS SUMMARY | 2024-04-29 14:10 | XMS_ITS | Encounter Summary ---
Author Organization [facility] Address [address] [place] [address] Phone Care Team Providers Care Gas Station Attendant Name Role Phone Elpidio Serrato MD Primary Care Provider [phone] Encounter Details Date Type Department Care Team (Late st Contact Info) Description 02/15/2022 Telephone [facility] [address] [place] [address] Makayla Ramos MD [address] [place], [place] [id number] Social History Tobacco Use Types Packs/Day Years Used Date Smoking Tobacco: Never Smokeless Tobacco: Never Comments Unknown Sex and Gender Information Value Date Recorded Sex Assigned at Not on file Legal Sex Female 3:59 AM RESTAURANT HOSTESS Gender Identity Female 05/13/2021 4:21 PM RESTAURANT HOSTESS Sexual Orientation Not on file documented as of this encounter Miscellaneous Notes * Telephone Encounter - Kwasi Castañeda - 02/15/2022 11:49 AM CDT Pt called stating that she was supposed to be scheduled for sx back in May, but never received a call to schedule sx. Please reach out to the pt to schedule. documented in this encounter Plan of Treatment Not on file documented as of this encounter Visit Diagnoses Not on filedocumented in this encounter Care Teams Gas Station Attendant Relationship Specialty Start Date End Date Elpidio Serrato MD PCP - General Internal Medicine 06/09/18 documented as of this encounter
--- OUTSIDE RECORDS SUMMARY | 2024-04-29 14:10 | XMS_ITS | Encounter Summary ---
Author Organization [facility] Address [address] [place] [address] Phone Care Team Providers Care Assembler Motor Vehicle Name Role Phone Elpidio Serrato MD Primary Care Provider [phone] Reason for Visit * Reason Onset Date Comments CMN 09/05/2021 [facility] Encounter Details Date Type Department Care Team (Late st Contact Info) Description 09/05/2021 Telephone [facility] Endocrinology Metabolism and Lipid [address] [facility] [address] [address] Princess Hu RMA CMN ([facility]) Social History Tobacco Use Types Packs/Day Years Used Date Smoking Tobacco: Never Smokeless Tobacco: Never Comments Unknown Sex and Gender Information Value Date Recorded Sex Assigned at Not on file Legal Sex Female 3:59 AM SIFTER AND MILLER Gender Identity Female 05/13/2021 4:21 PM SIFTER AND MILLER Sexual Orientation Not on file documented as of this encounter Miscellaneous Notes * Telephone Encounter - Princess Hu RMA - 09/05/2021 12:57 PM CDT Images from the original note were not included. Faxed OV to [facility] for pt's diabetic supplies. documented in this encounter Plan of Treatment Not on file documented as of this encounter Visit Diagnoses Not on filedocumented in this encounter Care Teams Assembler Motor Vehicle Relationship Specialty Start Date End Date Elpidio Serrato MD PCP - General Internal Medicine 06/09/18 documented as of this encounter
--- OUTSIDE RECORDS SUMMARY | 2024-04-29 14:10 | XMS_ITS | Encounter Summary ---
Author Organization [facility] Address [address] [place] [address] Phone Care Team Providers Care Psychiatric Mental Health Nurse Name Role Phone Elpidio Serrato MD Primary Care Provider Reason for Visit * Reason Onset Date Comments CMN 09/12/2021 Noemi Encounter Details Date Type Department Care Team (Late st Contact Info) Description 09/12/2021 Telephone [facility] Endocrinology Metabolism and Lipid [address] [facility] Office Building [address] [address] Princess Hu RMA CMN ([facility]) Social History Tobacco Use Types Packs/Day Years Used Date Smoking Tobacco: Never Smokeless Tobacco: Never Comments Unknown Sex and Gender Information Value Date Recorded Sex Assigned at Not on file Legal Sex Female 3:59 AM FACILITIES SPECIALIST Gender Identity Female 05/13/2021 4:21 PM FACILITIES SPECIALIST Sexual Orientation Not on file documented as of this encounter Miscellaneous Notes * Telephone Encounter - Princess Hu RMA - 09/12/2021 1:49 PM CDT Images from the original note were not included. Faxed CMN to Noemi for pt's diabetic supplies. documented in this encounter Plan of Treatment Not on file documented as of this encounter Visit Diagnoses Not on filedocumented in this encounter Care Teams Psychiatric Mental Health Nurse Relationship Specialty Start Date End Date Elpidio Serrato MD PCP - General Internal Medicine 06/09/18 documented as of this encounter
--- OUTSIDE RECORDS SUMMARY | 2024-04-29 14:10 | XMS_ITS | Encounter Summary ---
Author Organization [facility] Address [address] [place] [address] Phone Care Team Providers Care Hydrometer Tester Name Role Phone Elpidio Serrato MD Primary Care Provider [phone] Reason for Referral * Diagnostic Imaging (Routine) - Closed Specialty Diagnoses / Procedures Referred By Constantino alvarado Referred To Contact Diagnoses Nuclear sclerotic cataract of both eyes Acute angle-closure glaucoma, bilateral Procedures Forrest Visual Field - OU - Both Eyes Makayla Ramos MD [address] [place] [address] Phone: tel: fax: [facility] (All Locations) Referral ID Status Reason Start Date Expiration Date Visits Re quested Visits Authorized [id number] Closed 05/19/2021 06/18/2022 1 1 KEEPING ASSISTANT * Diagnostic Imaging (Routine) - Closed Specialty Diagnoses / Procedures Referred By Constantino alvarado Referred To Contact Diagnoses Nuclear sclerotic cataract of both eyes Procedures IOL Biometry - OU - Both Eyes Makayla Ramos MD [address] [place] [address] Phone: tel: fax: [facility] (All Locations) Referral ID Status Reason Start Date Expiration Date Visits Re quested Visits Authorized [id number] Closed 05/19/2021 06/18/2022 1 1 KEEPING ASSISTANT Encounter Details Date Type Department Care Team (Late st Contact Info) Description 05/19/2021 Orders Only [facility] Ophthalmology [address] [facility] [place] [address] Makayla Ramos MD [address] [place] [address] Primary open angle glaucoma (POAG) of both eyes, moderate stage (Primary Dx); Nuclear sclerotic cataract of both eyes; Acute angle-closure glaucoma, bilateral ; Acute angle-closure glaucoma, bilateral Social History Tobacco Use Types Packs/Day Years Used Date Smoking Tobacco: Never Smokeless Tobacco: Never Comments Unknown Sex and Gender Information Value Date Recorded Sex Assigned at Not on file Legal Sex Female 3:59 AM BOOKKEEPING ASSISTANT Gender Identity Female 05/13/2021 4:21 PM BOOKKEEPING ASSISTANT Sexual Orientation Not on file documented as of this encounter Plan of Treatment Not on file documented as of this encounter Procedures Procedure Name Priority Date/Time Associated Diagnosis Comments FORREST VISUAL FIELD - OU - BOTH EYES Routine 05/19/2021 4:26 PM BOOKKEEPING ASSISTANT Nuclear sclerotic cataract of both eyes Acute angle-closure glaucoma, bilateral IOL BIOMETRY - OU - BOTH EYES Routine 05/19/2021 4:25 PM BOOKKEEPING ASSISTANT Nuclear sclerotic cataract of both eyes documented in this encounter Results * Forrest Visual Field - OU - Both Eyes (05/19/2021 4:26 PM BOOKKEEPING ASSISTANT) Anatomical Region Laterality Modality Head Visual Field Narrative 05/19/2021 4:26 PM BOOKKEEPING ASSISTANT Right Eye Fixation was good. Cooperation was good. Reliability was good. Progression has worsened. Findings include superior nasal step defect. Left Eye Fixation was good. Cooperation was good. Reliability was good. Progression has worsened. Findings include superior arcuate defect. us Makayla Ramos MD OPHTH VISUAL FIELD Final Resu lt * IOL Biometry - OU - Both Eyes (05/19/2021 4:25 PM BOOKKEEPING ASSISTANT) A LENGTH (OS) 24.49 A LENGTH (OD) 24.58 White to White (OS) 12.1 mm White to White (OD) 12.1 mm Anatomical Region Laterality Modality Head Other Narrative 05/19/2021 4:25 PM BOOKKEEPING ASSISTANT Right Eye Axial length was 24.58. White to white was 12.1 mm. Left Eye Axial length was 24.49. White to white was 12.1 mm. us Makayla Ramos MD OPHTH ULTRASOUND Final Result documented in this encounter Visit Diagnoses Diagnosis Primary open angle glaucoma (POAG) of both eyes, moderate stage- Primary Nuclear sclerotic cataract of both eyes Senile nuclear sclerosis Acute angle-closure glaucoma, bilateral Acute angle-closure glaucoma Acute angle-closure glaucoma, bilateral Acute angle-closure glaucoma documented in this encounter Care Teams Hydrometer Tester Relationship Specialty Start Date End Date Elpidio Serrato MD PCP - General Internal Medicine 06/09/18 documented as of this encounter
--- OUTSIDE RECORDS SUMMARY | 2024-04-29 14:10 | XMS_ITS | Encounter Summary ---
Author Organization [facility] Address [address] [place] [address] Phone Care Team Providers Care Solid Waste Truck Driver Name Role Phone Elpidio Serrato MD Primary Care Provider [phone] Encounter Details Date Type Department Care Team (Late st Contact Info) Description 05/19/2021 8:30 AM SMELTING ENGINEER Office Visit [facility] Ophthalmology [address] [facility] [place] [address] Makayla Ramos MD [address] [place] [address] Primary open angle glaucoma (POAG) of both eyes, moderate stage (Primary Dx); Nuclear sclerotic cataract of both eyes Social History Tobacco Use Types Packs/Day Years Used Date Smoking Tobacco: Never Smokeless Tobacco: Never Comments Unknown Sex and Gender Information Value Date Recorded Sex Assigned at Not on file Legal Sex Female 3:59 AM SMELTING ENGINEER Gender Identity Female 05/13/2021 4:21 PM SMELTING ENGINEER Sexual Orientation Not on file documented as of this encounter Patient Instructions * Patient Instructions* Makayla Ramos MD - 05/19/2021 8:30 AM SMELTING ENGINEER TING ENGINEER documented in this encounter Progress Notes * Makayla Ramos MD - 05/19/2021 8:30 AM CST Assessment/Plan Diagnoses and all orders for this visit: Primary open angle glaucoma (POAG) of both eyes, moderate stage (Primary) Assessment & Plan: POAG OU Mild HVF with progression of superior field IOP remains at goal Plan for goniotomy at the time of surgery Nuclear sclerotic cataract of both eyes Assessment & Plan: Now becoming VS Plan for CEIOL\goniotomy in [...] perioperative steroids: no Book Phaco/IOL/gonitomy right eye. 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 TING ENGINEER documented in this encounter Plan of Treatment Not on file documented as of this encounter Visit Diagnoses Diagnosis Primary open angle glaucoma (POAG) of both eyes, moderate stage- Primary Nuclear sclerotic cataract of both eyes Senile nuclear sclerosis documented in this encounter Eye Exam Visual Acuity (Snellen - Linear) Right eye Left eye Dist cc 20/40 +1 20/40 Dist ph cc 20/25 -1 20/30 -2 Correction: Glasses Tonometry (Applanation, 8:30 AM) Right eye Left eye Pressure 16 16 Pupils Dark Light Shape React APD Right eye 4 3 Round Brisk - Left eye 4 3 Round Brisk - Visual Vann (Counting fingers) Right eye Left eye Full Full Extraocular Movement Right eye Left eye Full, Ortho Full, Ortho Neuro/Psych Oriented x3: Yes Mood/Affect: Normal Dilation Deferred to MD Glare Testing (Transilluminator) Off Low Right eye 20/40 20/50+1 Left eye 20/40 20/80 External Exam Right eye Left eye External [...] 0.85 0.85-9 Macula Normal Normal Care Teams Solid Waste Truck Driver Relationship Specialty Start Date End Date Elpidio Serrato MD PCP - General Internal Medicine 06/09/18 documented as of this encounter
--- OUTSIDE RECORDS SUMMARY | 2024-04-29 14:10 | XMS_ITS | Encounter Summary ---
Author Organization [facility] Address [address] [place] [address] Phone Care Team Providers Care Alloy Weigher Name Role Phone Elpidio Serrato MD Primary Care Provider [phone] Encounter Details Date Type Department Care Team (Latest Contact Info) Description 07/24/2021 9:00 AM CDT Telemedicine [facility] Endocrinology Metabolism and Lipid [address] [facility] 13th [place] [address] [place] [address] Merna Bell MD [address] [facility] [address] [place] [address] 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, with long-term current use of insulin, unspecified laterality (HCC) (Primary Dx); Mixed hyperlipidemia; Acquired hypothyroidism Social History Tobacco Use Types Packs/Day Years Used Date Smoking Tobacco: Never Smokeless Tobacco: Never Comments Unknown Sex and Gender Information Value Date Recorded Sex Assigned at Not on file Legal Sex Female 3:59 AM RUBBER OFF Gender Identity Female 05/13/2021 4:21 PM RUBBER OFF Sexual Orientation Not on file documented as of this encounter Progress Notes * Merna Bell MD - 07/24/2021 9:00 AM CDT This was a telemedicine visit with Isabelle Lutz alone which took place via Telephone No Internet/Computer. During the visit, I was located at home and the patient was located at home in the state of [place]. The patient visit started at 0915 and ended at 0935. My total encounter time on 07/24/2021 was40 minutes which was spent in the [...] a telephone or video [facility] emergencywas explained to them. After being given [...] at age 45, 1995, duration 27 years. Her A1c was??7.2% on 01/13/2021. ?? Current therapy: Lantus 40??units Humalog 10 units with meals,??generally 4 injections of insulin per day. ??She misses occasional doses if she is not going to eat metformin 500 mg BID Ozempic, 1 mg weekly Jardiance, 10 mg ??daily. ? She is now using the Dexcom G6??CGM, which she finds very helpful, and has reduced the frequency ofher fingerstick glucose tests.?She uses it continuously??for??frequent??monitoring, safety and to adjust insulin doses, uses the reader so??the most recent download was 01/24/21.?She has not hadmany lows. Her Dexcom is set to alarm at 80 mg/dl. ?? Takes humalog regularly with breakfast, is less consistent with other meals. ?? By way of complications Isabelle Lutz [...] gm/cm -4.0% decrease which is considered significant. ? Patient Active Problem List Diagnosis ??? Actinic [...] Vitamin D deficiency ??? Benign essential hypertension Current Outpatient Medications: ??? atorvastatin (LIPITOR) 20 mg tablet, Take 1 tablet (20 mg total) by mouth daily, Disp: 90 tablet, Rfl: 3 ??? blood [...] MOUTH ONCE WEEKLY, Disp: 12 capsule, Rfl: 3 ??? HUMALOG KWIKPEN INSULIN 100 unit/mL insulin [...] ??? latanoprost (XALATAN) 0.005 % ophthalmic solution, Administer 1 drop into both eyes nightly, Disp: 2.5 mL, Rfl: 11 ??? levothyroxine (SYNTHROID) 88 mcg tablet, TAKE 1 TABLET BY MOUTH EVERY DAY, Disp: 90 tablet, Rfl: 3 ??? metFORMIN (GLUCOPHAGE) 500 mg tablet, TAKE 1 TABLET BY MOUTH TWICE A DAY, Disp: 180 tablet, Rfl: 3 ??? olmesartan-hydrochlorothiazide (BENICAR HCT) 40-12.5 mg per tablet, TAKE 1 TABLET BY MOUTH EVERY DAY, Disp: 90 tablet, Rfl: 2 ??? Ozempic 1 mg/dose (2 mg/1.5 mL) pen injector injection, INJECT 1MG SUBCUTANEOUSLY ONCE A WEEK, Disp: 9 mL, Rfl: 3 ??? pen needle, diabetic (BD ULTRA-FINE WENDY PEN NEEDLE) 32 gauge x 5/32 needle, Use 4X daily, Disp: 300 each, Rfl: 3 ROS: See HPI. All other systems are negative. There were no vitals taken for this visit. Physical Exam No results found for this or any previous visit (from the past 24 hour(s)). Chemistry Lab Results Component Value Date SODIUM 140 01/13/2021 POTASSIUM 4.7 01/13/2021 CHLORIDE 108 01/13/2021 CO2 24 01/13/2021 ANIONGAP 8 01/13/2021 BUNSER 39 (H) 01/13/2021 CREATININE 1.10 01/13/2021 GLUCOSE 143 01/13/2021 CALCIUM 9.6 01/13/2021 BILITOT 0.2 07/13/2020 PROTEIN 7.5 06/17/2016 ALBUMIN 4.2 01/13/2021 GFRNAA 50 (L) 01/13/2021 ALKPHOS 87 07/13/2020 AST 25 07/13/2020 ALT 17 07/13/2020 PHOS 3.8 01/13/2021 MAGNESIUM 2.3 06/17/2016 Lab Results Component Value Date SODIUM 140 01/13/2021 POTASSIUM 4.7 01/13/2021 CHLORIDE 108 01/13/2021 CREATININE 1.10 01/13/2021 BUN 31 (H) 03/31/2019 CALCIUM 9.6 01/13/2021 PHOS 3.8 01/13/2021 ALBUMIN 4.2 01/13/2021 AST 25 07/13/2020 ALT 17 07/13/2020 ALKPHOS 87 07/13/2020 Lab Results Component Value Date MALBCRTRAT 15.7 12/03/2016 @CBC@ Lab Results Component Value Date TSH 1.15 01/13/2021 FREET4 1.39 12/09/2017 No results found for: CPEPTIDE Lab Results Component Value Date CHOL 178 01/13/2021 TRIG 213 (H) 01/13/2021 HDLC 50 03/31/2019 LDLDIRECT 102 03/31/2019 Hyperlipidemia Recheck lipid panel, adjust statin as needed. Hypothyroidism Recheck TFT, adjust as needed. Pt remains on a low dose of levothyroxine. Type 2 diabetes mellitus ([facility]) Diabetes control is doing well according to the patient. Will recheck A1c, and I have asked pt to download the Dealflow.com heather and Clarity heather so that telemedicine visits are more instructive. Orders Placed This Encounter Procedures ??? Hemoglobin A1c Standing Status: Future Number of Occurrences: 1 Standing Expiration Date: 07/24/2022 ??? Renal function panel Standing Status: Future Number of Occurrences: 1 Standing Expiration Date: 07/24/2022 ??? TSH reflex to free T4 Standing Status: Future Number of Occurrences: 1 Standing Expiration Date: 07/24/2022 ??? Lipid panel Standing Status: Future Number of Occurrences: 1 Standing Expiration Date: 07/24/2022 Merna Bell MD 07/24/2021 9:32 AM documented in this encounter Miscellaneous Notes * Assessment & Plan Note - Merna Bell MD - 07/24/2021 9:28 AM CDT Associated Problem(s): DM2 (diabetes mellitus, type 2) (HCC) Diabetes control is doing well according to the patient. Will recheck A1c, and I have asked pt to download the Dexcom heather and Clarity heather so that telemedicine visits are more instructive. * Assessment & Plan Note - Merna Bell MD - 07/24/2021 9:27 AM CDT Associated Problem(s): Hypothyroidism Recheck TFT, adjust as needed. Pt remains on a low dose of levothyroxine. * Assessment & Plan Note - Merna Bell MD - 07/24/2021 9:27 AM CDT Associated Problem(s): Hyperlipidemia Recheck lipid panel, adjust statin as needed. 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, with long-term current use of insulin, unspecified laterality (HCC) RENAL FUNCTION PANEL Routine 10/23/2021 12:00 AM CDT 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, with long-term current use of insulin, unspecified laterality (HCC) LIPID PANEL Routine 10/23/2021 12:00 AM CDT 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 Susan et al. J. of Clin. Lipidol. 2015;9:129-169. LDL 140(H) mg/dL (calc) [facility] Comment: Reference range: <100 Desirable range <100 mg/dL for primary prevention; ?? <70 mg/dL for patients with CHD or diabetic patients with > or = 2 CHD risk factors. LDL-C is now calculated using the Mikie-Gonzales calculation, which is a validated novel method providing better accuracy than the Friedewald equation in the estimation of LDL-C. Mikie SS et al. VIOLA. 2013;310(19): 0733-1891 (http://education.Mobento/faq/GKU212) Chol/HDL ratio 5.2(H) <5.0 (calc) [facility] Non-HDL, (LDL+VLDL) 176(H) <130 mg/dL (calc) [facility] Comment: For patients with diabetes plus 1 major ASCVD risk factor, treating to a non-HDL-C goal of <100 mg/dL (LDL-C of <70 mg/dL) is considered a therapeutic option. Blood specimen (specimen) 10/23/2021 10/23/2021 7:57 AM CDT Narrative [facility] - 10/24/2021 3:00 AM CDT FASTING:YES FASTING: YES us Merna Bell MD LAB BLOOD ORDERABLES Final Re sult [facility] [address] [place] [address] * TSH reflex to free T4 (10/23/2021 12:00 AM CDT) Pathologist [facility] TSH 2.42 0.40 - 4.50 mIU/L [facility] Blood specimen (specimen) 10/23/2021 10/23/2021 7:57 AM CDT Narrative [facility] - 10/24/2021 3:00 AM CDT FASTING:YES FASTING: YES us Merna Bell MD LAB BLOOD ORDERABLES Final Re sult JOSE C Kelly [address] [facility] [place] [address] * (ABNORMAL) Renal function panel (10/23/2021 12:00 AM CDT) Pathologist [facility] Glucose 103(H) 65 - 99 mg/dL [facility] Comment: ? Fasting reference interval For someone without known diabetes, a glucose value between 100 and 125 mg/dL is consistent with prediabetes and should be confirmed with a follow-up test. BUN 46(H) 7 - 25 mg/dL [facility] Creatinine 1.26(H) 0.60 - 0.93 mg/dL [facility] Comment: For patients >49 years of age, the reference limit for Creatinine is approximately 13% higher for people identified as -Wallisian. eGFR NON-AFR. SWEDISH 43(L) > OR = 60 mL/min/1. 73m2 [facility] EGFR 49(L) > OR = 60 mL/min/1. 73m2 [facility] BUN/creat ratio 37(H) 6 - 22 (calc) [facility] Sodium 142 135 - 146 mmol/L [facility] Potassium, pl 4.9 3.5 - 5.3 mmol/L [facility] Chloride 112(H) 98 - 110 mmol/L [facility] CO2 20 20 - 32 mmol/L [facility] Calcium 9.5 8.6 - 10.4 mg/dL [facility] Phosphorus, sr 4.0 2.1 - 4.3 mg/dL [facility] Albumin 4.3 3.6 - 5.1 g/dL [facility] Blood specimen (specimen) 10/23/2021 10/23/2021 7:57 AM CDT Narrative [facility] - 10/24/2021 3:00 AM CDT FASTING:YES FASTING: YES Merna Bell MD LAB BLOOD ORDERABLES Final Re sult [facility] [address] [place] [address] * (ABNORMAL) Hemoglobin A1c (10/23/2021 12:00 AM CDT) Hgb A1C 5.9(H) <5.7 % of total Hgb [facility] Comment: For someone without known diabetes, a hemoglobin A1c value between 5.7% and 6.4% is consistent with prediabetes and should be confirmed with a follow-up test. For someone with known diabetes, a value <7% indicates that their diabetes is well controlled. A1c targets should be individualized based on duration of diabetes, age, comorbid conditions, and other considerations. This assay result is consistent with an increased risk of diabetes. Currently, no consensus exists regarding use of hemoglobin A1c for diagnosis of diabetes for children. 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, with long-term current use of insulin, unspecified laterality (HCC)- Primary Mixed hyperlipidemia Acquired hypothyroidism Unspecified hypothyroidism documented in this encounter Discontinued Medications Medication Sig Discontinue Reason Start Date End Da te insulin lispro (HumaLOG KwikPen Insulin) 100 unit/mL insulin pen Inject 15 Units under the skin 3 (three) times a day Alternate therapy 04/06/2019 07/24/2021 insulin syringe needleless (BD INSULIN SYRINGE SLIP TIP) 1 mL syringe USE DAILY W/LANTUS Alternate therapy 07/11/2015 07/24/2021 documented as of this encounter Care Teams Alloy Weigher Relationship Specialty Start Date End Date Elpidio Serrato MD PCP - General Internal Medicine 06/09/18 documented as of this encounter
--- OUTSIDE RECORDS SUMMARY | 2024-04-29 14:10 | XMS_ITS | Encounter Summary ---
Author Organization [facility] Address [address] [place] [address] Phone Care Team Providers Care Senior Partner Name Role Phone Elpidio Serrato MD Primary Care Provider [phone] Encounter Details Date Type Department Care Team (Latest Contact Info) Description 01/24/2021 4:10 PM CDT Office Visit [facility] Metabolism and Lipid 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, with long-term current use of insulin, unspecified laterality (HCC) (Primary Dx); Hypertension, unspecified type Social History Tobacco Use Types Packs/Day Years Used Date Smoking Tobacco: Never Smokeless Tobacco: Never Comments Unknown Sex and Gender Information Value Date Recorded Sex Assigned at Not on file Legal Sex Female 3:59 AM CLINICAL EDITOR Gender Identity Female 05/13/2021 4:21 PM CLINICAL EDITOR Sexual Orientation Not on file documented as of this encounter Last Filed Vital Signs Vital Sign Reading Time Taken Comments Blood Pressure 127/78 01/24/2021 3:53 PM CDT Pulse 77 01/24/2021 3:53 PM CDT Temperature 36.3 ??C (97.3 ??F) 01/24/2021 3:53 PM CD T Respiratory Rate - - Oxygen Saturation - - Inhaled Oxygen Concentration - - Weight 99.8 kg (220 lb) 01/24/2021 3:53 PM CDT Height 152.4 cm (5') 01/24/2021 3:53 PM CDT Body Mass Index 42.97 01/24/2021 3:53 PM CDT documented in this encounter Progress Notes * Shelton Guadalupe MD - 01/24/2021 4:10 PM CDT Images from the original note were not included. Endocrinology Outpatient Clinic Note Patient: Isabelle Lutz, 70 y.o. female (: 1950 ) PCP: Elpidio Serrato MD (Referring: Elpidio Serrato MD) CC: diabetes HPI & Subjective 70 y.o. female who returns for follow up of Type 2 Diabetes, Hypertension and Hyperlipidemia. Her A1c was??7.2% on 01/13/2021. She is taking??Lantus 48??units, Humalog 10 units with meals,??generally 4 injections of insulin per day. ??She misses occasional doses if she is not going to eat or if her BG is <130 mg/dl pre-meal. ??She also takes??metformin 500 mg BID,??Ozempic, 1 mg weekly and Jardiance, 10 mg ??Daily. ? She is now using the Dexcom G6??CGM, which she finds very helpful, and has reduced the frequency ofher fingerstick glucose tests.?She uses it continuously??for??frequent??monitoring, safety and to adjust insulin doses, uses the reader so the most recent download was 01/24/21. She has not had many lows. Her Dexcom is set to alarm at 80 mg/dl. ?? Takes humalog regularly with breakfast, is less consistent with other meals. ?? CGM Interpretation Sensor Usage; 100% Time in Range 9% Very High, 32% High 58% In Range <1% Low, <1% Very Low Pattern analysis; no hypoglycemia, does have post prandial hyperglycemia particularly after dinner. By [...] about the same. ? Isabelle has severe osteoarthritis of her knees, and has had a couple of minor fractures with minimal trauma, right tibial plateau fracture 2018. ??She has a number of risk factors for osteoporosis, including age, thyroid disease, falls. ??Her last DXA was in 2013, report unable to open. ??A repeat DXA was done in July,: Bone Mineral Density (BMD) of the left hip total was found to be 0.910 gm/cm2. This corresponds to a T-score standard deviations from the mean of young adults of -0.3. Femoral neck is 0.708 gm/cm2 with a T-score ??of -1.3. When compared to the previous study of 05/11/14 there has been a measured 0.037 gm/cm -4.0% decrease which is considered significant. ?? PMH / PSH Past Medical History: Diagnosis Date ??? Cataract [...] History: Procedure Laterality Date ??? [place] APPENDECTOMY Appendectomy - (Added by TW Conv) ??? [place] DELIVERY ONLY Section - in 1972 and 1975 (Added by TW Conv) ??? [place] INCISE FINGER TENDON SHEATH Hand Incision Tendon Sheath Of A Finger - right hand, III finger, 08/20 (Added by TW Conv) Social & Family History Social History Tobacco Use ??? Smoking status: Never Smoker ??? Smokeless tobacco: Never Used Substance and Sexual Activity ??? Alcohol use: Not on file ??? Drug use: Not on file ??? Sexual activity: Not on file Family History Problem Relation Age of Onset ??? Heart disease Other Heart Disease - mother (Added by TW Conv) ??? Hypertension Other Hypertension - mother (Added by TW Conv) ??? Thyroid disease Other Thyroid Disorder - mother (Added by TW Conv) ??? Diabetes type II Other Type II Diabetes Mellitus - mother (Added by TW Conv) Review of Systems Twelve point ROS reviewed and negative except as noted in HPI. All other systems negative. Vitals & Physical Exam Blood pressure 127/78, pulse 77, temperature 36.3 ??C (97.3 ??F), height 152.4 cm (5'), weight 99.8kg (220 lb). Body mass index is 42.97 kg/m??. Physical Exam Gen : no acute distress, alert, appropriate, cooperative, appears stated age, well-developed, well-nourished HENT : normocephalic, atraumatic, moist mucus membranes Eyes : conjunctiva clear, anicteric, no proptosis/exophthalmos/lid lag, EOMI Pulm : clear to auscultation in anterior smith, non-labored, on room air CV : regular rate & rhythm, no murmurs/rubs/gallops, no JVD Abd : soft, non-tender, non-distended, normoactive bowel sounds, no striae Extr : atraumatic, no cyanosis/clubbing/edema Skin : turgor normal, no rashes/wounds/lesions Neuro : alert, speech fluent, comprehension intact, moving all extremities Psych : cooperative, appropriate affect & mood, good insight & judgment Data Medications, labs, imaging, and diagnostics independently reviewed in [facility] and commented on below. Allergies: Pseudoephedrine and Valacyclovir HOME MEDICATIONS : atorvastatin (LIPITOR) 20 mg tablet blood glucose diagnostic (glucose blood) strip brimonidine-timoloL (Combigan) 0.2-0.5 % ophthalmic solution celecoxib (CeleBREX) 200 mg capsule empagliflozin (JARDIANCE) 10 mg tablet ergocalciferol (VITAMIN D) 50,000 unit capsule HUMALOG KWIKPEN INSULIN 100 unit/mL insulin pen insulin glargine (LANTUS) 100 unit/mL (3 mL) pen for injection insulin lispro (HumaLOG KwikPen Insulin) 100 unit/mL insulin pen insulin syringe needleless (BD INSULIN SYRINGE SLIP TIP) 1 mL syringe latanoprost (XALATAN) 0.005 % ophthalmic solution levothyroxine (SYNTHROID) 88 mcg tablet metFORMIN (GLUCOPHAGE) 500 mg tablet olmesartan-hydrochlorothiazide (BENICAR HCT) 40-12.5 mg per tablet pen needle, diabetic (BD ULTRA-FINE WENDY PEN NEEDLE) 32 gauge x 5/32 needle semaglutide (Ozempic) 1 mg/dose (2 mg/1.5 mL) pen injector Lab Results Component Value Date TSH 1.15 01/13/2021 FREET4 1.39 12/09/2017 Lab Results Component Value Date CHOL 178 01/13/2021 TRIG 213 (H) 01/13/2021 HDL 44 01/13/2021 LDLCALC 91 01/13/2021 LDLDIRECT 102 03/31/2019 Lab Results Component Value Date PTH 69 (H) 01/13/2021 25HYDROVITD 40 01/13/2021 Lab Results Component Value Date HGBA1C 7.2 (H) 01/13/2021 Assessment & Plan Assessment/Plan Hypertension At goal today. Pt takes Benicar ?? Type 2 diabetes mellitus ([facility]) Glucoses are excellent and variability is acceptable for MDI patients. Recommendations: ?? - Continue use of Dexcom CGM for frequent monitoring, insulin dose adjustments and safety (alarms) - Continue metformin, Ozempic and Jardiance - Continue current doses of Humalog (enouraged to take insulin with dinner to avoid hyperglycemia in the evening), but decrease Lantus to 40 units if taking evening Humalog regularly. - Continue lowish carbs and calories. ?? Vitamin D deficiency Hyperparathyroidism Normal vitamin D level (40, on 01/13/2021), continue weekly D2. normal calcium levels - PTH remains elevated - osteopenia on DEXA - continue to monitor ?? Hyperlipidemia Switched from simvastatin, 40 mg daily to atorvastatin, 20 mg daily - repeat lipids, LDL 91, consider increase to atorvastatin 40mg daily ?? Hypothyroidism TSH has been normal 1.15, measured in Jan, 2021. - continue current synthroid dose No orders of the defined types were placed in this encounter. -- Shelton Guadalupe MD Clinical Fellow Endocrinology, Metabolism, & Lipid Research Cosigned by Merna Bell MD at 01/24/2021 6:57 PM CDT Associated attestation - Merna Bell MD - 01/24/2021 6:57 PM CDT I have seen and examined the patient. I agree with the findings and plan of care as documented in the resident/fellow's note. My total encounter time on 01/24/2021 was 45 minutes which was spent in [...] use of insulin, unspecified laterality (HCC)- Primary Hypertension, unspecified type documented in this encounter Care Teams Senior Partner Relationship Specialty Start Date End Date Elpidio Serrato MD PCP - General Internal Medicine 06/09/18 documented as of this encounter
--- OUTSIDE RECORDS SUMMARY | 2024-04-29 14:11 | XMS_ITS | Encounter Summary ---
Author Organization [facility] Address [address] [place] [address] Phone Care Team Providers Care Blood Bank Calendar Control Clerk Name Role Phone Elpidio Serrato MD Primary Care Provider [phone] Reason for Visit * Reason Onset Date Comments different pharmacy for medication 06/09/2020 Encounter Details Date Type Department Care Team (Late st Contact Info) Description 06/09/[address] 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 RY CONTROL OPERATOR HELPER * Telephone Encounter - MichaelaInezMarcia - 06/09/2020 10:17 AM CST Pt called and stated that the next time her prescriptions for latanoprost and combigan need to be filled she would like it done so through the mail order pharmacy on file. Pharmacy fax number is [phone] and phone number is [phone]. Best contact number for pt is [phone] RY CONTROL OPERATOR HELPER documented in this encounter Plan of Treatment Not on file documented as of this encounter Visit Diagnoses Not on filedocumented in this encounter Care Teams Blood Bank Calendar Control Clerk Relationship Specialty Start Date End Date Elpidio Serrato MD PCP - General Internal Medicine 06/09/18 documented as of this encounter
--- OUTSIDE RECORDS SUMMARY | 2024-04-29 14:11 | XMS_ITS | Encounter Summary ---
Author Organization [facility] Address [address] [place] [address] Phone Care Team Providers Care Claim Analyst Name Role Phone Elpidio Serrato MD Primary Care Provider [phone] Reason for Visit * (Routine) - Closed Specialty Diagnoses / Procedures Referred By Constantino alvarado Referred To Contact Diagnoses Primary open angle glaucoma (POAG) of both eyes, moderate stage Procedures Forrest Visual Field - OU - Both Eyes Makayla Ramos MD [address] [place] [address] Phone: tel: fax: [facility] (All Locations) Referral ID Status Reason Start Date Expiration Date Visits Re quested Visits Authorized [id number] Closed 01/15/2020 02/13/2021 1 1 Encounter Details Date Type Department Care Team (Late st Contact Info) Description 01/25/2020 8:10 AM CDT Imaging Exam [facility] Ophthalmology [address] [facility] [address] [place] [address] Primary open angle glaucoma (POAG) of both eyes, moderate stage Social History Tobacco Use Types Packs/Day Years Used Date Smoking Tobacco: Never Smokeless Tobacco: Never Comments Unknown Sex and Gender Information Value Date Recorded Sex Assigned at Not on file Legal Sex Female 3:59 AM DOOR BUILDER Gender Identity Female 05/13/2021 4:21 PM DOOR BUILDER Sexual Orientation Not on file documented as of this encounter Plan of Treatment Not on file documented as of this encounter Procedures Procedure Name Priority Date/Time Associated Diagnosis Comments FORREST VISUAL FIELD - OU - BOTH EYES Routine 01/25/2020 8:13 AM CDT Primary open angle glaucoma (POAG) of both eyes, moderate stage documented in this encounter Results * Forrest Visual Field - OU - Both Eyes (01/25/2020 8:13 AM CDT) Mean Deviation OS -2.74 dB Mean Deviation OD -3.50 dB Pattern Deviation OS 2.42 dB Pattern Deviation OD 4.98 dB Anatomical Region Laterality Modality Head Other Narrative 01/25/2020 8:44 AM CDT Right Eye Fixation was good. Cooperation was good. Reliability was good. Progression has improved. Foveal threshold was normal. Findings include superior nasal step defect. Mean Deviation was -3.50 dB. Pattern Deviation was 4.98 dB. Left Eye Fixation was good. Cooperation was good. Reliability was good. Progression has improved. Foveal threshold was normal. Findings include superior arcuate defect. Mean Deviation was -2.74 dB. Pattern Deviation was 2.42 dB. us Makayla Ramos MD OPHTH VISUAL FIELD Final Resu lt documented in this encounter Visit Diagnoses Diagnosis Primary open angle glaucoma (POAG) of both eyes, moderate stage documented in this encounter Care Teams Claim Analyst Relationship Specialty Start Date End Date Elpidio Serrato MD PCP - General Internal Medicine 06/09/18 documented as of this encounter
--- OUTSIDE RECORDS SUMMARY | 2024-04-29 14:11 | XMS_ITS | Encounter Summary ---
Author Organization [facility] [employer] [facility] Address [address] [place] [address] Phone Care Team Providers Care Plumbing Foreman Name Role Phone Elpidio Serrato MD Primary Care Provider [phone] Encounter Details Date Type Department Care Team (Latest Contact Info) Description 10/31/2020 8:00 AM CDT Telemedicine [facility] Endocrinology Metabolism and Lipid [address] 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, with long-term current use of insulin, unspecified laterality (CMS/HCC); Acquired hypothyroidism Social History Tobacco Use Types Packs/Day Years Used Date Smoking Tobacco: Never Smokeless Tobacco: Never Comments Unknown Sex and Gender Information Value Date Recorded Sex Assigned at Not on file Legal Sex Female 3:59 AM EPITAXIAL REACTOR TECHNICIAN Gender Identity Female 05/13/2021 4:21 PM EPITAXIAL REACTOR TECHNICIAN Sexual Orientation Not on file documented as of this encounter Ordered Prescriptions Prescription Sig Dispense Quantity Refills Last Filled Start Date End Date atorvastatin (LIPITOR) 20 mg tabletIndications:Mi xed hyperlipidemia Take 1 tablet (20 mg total) by mouth daily 90 tablet 3 10/31/2020 2 documented in this encounter Progress Notes * Merna Bell MD - 10/31/2020 8:00 AM CDT Images from the original note were not included. This was a telemedicine visit with Isabelle Lutz alone which took place via Telephone. During thevisit, I was located in the office and the patient was located at home in the state of [place]. The patient visit started at 0757 and ended at 0818. My total encounter time on 10/31/2020 was 40 minutes which was spent in the activities [...] a telephone or video visit during the [address] explained to them. After being given an opportunity to ask questions about and discuss this type of visit, they verbally consented to proceeding with the telephone/video visit and understand thatthis service replaces an office visit. Isabelle Lutz is a 70 y.o. female who returns for follow up of Type 2 Diabetes, Hypertension and Hyperlipidemia. Her A1c??at the last visit was??7.3%,??which was the best in some time.?She is taking??Lantus 48??units, Humalog 10-15 units with meals, generally 4 injections of insulin per day. She misses occasional doses if she is not going to eat or if her BG is <90 mg/dl pre-meal. ??She also takes??metformin 500 mg BID, Ozempic, 1 mg weekly and Jardiance, 10 mg Daily. She is now using the Dexcom G6 CGM, which she finds very helpful, and has reduced the frequency of her fingerstick glucose tests.?She uses it continuously??for frequent monitoring, safety and to adjust insulin doses, uses the reader so the most recent download was 10/24/20. She has lows 1-2X per week on the Dexcom that cause alarms. ??Her Dexcom is set to alarm at 80 mg/dl. ??Recent A1c was 6.8%, down from 7.2%, which is stable for her.? CGM Interpretation Mean BG 147 +/-42 mg/dl. GMI 6.8%. TIR 75%, TAR 22%, very high 2%; TBR 1%. Pattern analysis: Generally flat, increased variability after meals as expected. For recommendations, see plan. ?? By way of complications Isabelle Lutz reports no diabetic retinopathy She had laser to her right eye in May,,??for glaucoma, not for diabetes. ??She is also being followed for cataracts.?Follow-up showed improvement. ??She has mildly reduced kidney function, which is not new.?She had an episode of significant BARB with [...] gm/cm -4.0% decrease which is considered significant. Patient Active Problem List Diagnosis ??? Actinic keratosis ??? Type 2 diabetes mellitus (CMS/HCC) ??? Hyperlipidemia ??? Hypertension ??? Hypothyroidism ??? Knee pain ??? Obesity ??? Osteoarthritis of knee ??? Trigger finger of left thumb ??? Primary open angle glaucoma (POAG) of both eyes, moderate stage ??? Nuclear sclerotic cataract of both eyes ??? Clavicle enlargement ??? Vitamin D deficiency ??? Benign essential hypertension Current Outpatient Medications: ??? blood glucose diagnostic (glucose blood) strip, Testing once daily, Disp: 100 each, Rfl: 2 ??? brimonidine-timoloL (Combigan) 0.2-0.5 % ophthalmic solution, Administer 1 drop into both eyes 2 (two) times a day, Disp: 10 mL, Rfl: 11 ??? celecoxib (CeleBREX) 200 mg capsule, TAKE 1 CAPSULE DAILY., Disp: 90 capsule, Rfl: 3 ??? empagliflozin (JARDIANCE) 10 mg tablet, Take 1 tablet (10 mg total) by mouth daily, Disp: 90 tablet, Rfl: 3 ??? ergocalciferol (VITAMIN D) 50,000 unit capsule, TAKE ONE CAPSULE ONE TIME PER WEEK, Disp: 12 capsule, Rfl: 3 ??? HUMALOG KWIKPEN INSULIN 100 unit/mL insulin pen, INJECT 10 UNITS SUBCUTANEOUSLY AT BREAKFAST, 8TO 12 UNITS AT LUNCH, AND 5 UNITS WITH SNACKS, Disp: 45 mL, Rfl: 3 ??? insulin glargine (LANTUS) 100 unit/mL (3 mL) pen for injection, Inject 48 Units under the skin daily, Disp: 45 mL, Rfl: 2 ??? insulin syringe needleless (BD INSULIN SYRINGE SLIP TIP) 1 mL syringe, USE DAILY W/LANTUS, Disp: , Rfl: ??? latanoprost (XALATAN) 0.005 % ophthalmic solution, [...] DAY, Disp: 90 tablet, Rfl: 2 ??? pen needle, diabetic (BD ULTRA-FINE WENDY PEN NEEDLE) 32 gauge x 5/32 needle, Use 4X daily, Disp: 300 each, Rfl: 3 ??? semaglutide (Ozempic) 1 mg/dose (2 mg/1.5 mL) pen injector, Inject 1 mg under the skin once a week, Disp: 6 Syringe, Rfl: 3 ??? atorvastatin (LIPITOR) 20 mg tablet, Take 1 tablet (20 mg total) by mouth daily, Disp: 90 tablet, Rfl: 3 ??? insulin lispro (HumaLOG KwikPen Insulin) 100 unit/mL insulin pen, Inject 15 Units under the skin 3 (three) times a day, Disp: 27 pen, Rfl: 3 ROS: See HPI. All other systems are negative. There were no vitals taken for this visit. Physical Exam Vitals reviewed: telemedicine. No results found for this or any previous visit (from the past 24 hour(s)). Chemistry Lab Results Component Value Date SODIUM 138 07/13/2020 POTASSIUM 5.4 (H) 07/13/2020 CHLORIDE 107 07/13/2020 CO2 23 07/13/2020 ANIONGAP 8 07/13/2020 BUNSER 47 (H) 07/13/2020 CREATININE 1.27 (H) 07/13/2020 GLUCOSE 184 07/13/2020 CALCIUM 9.6 07/13/2020 BILITOT 0.2 07/13/2020 PROTEIN 7.5 06/17/2016 ALBUMIN 4.4 07/13/2020 GFRNAA 53.8 (L) 03/31/2019 ALKPHOS 87 07/13/2020 AST 25 07/13/2020 ALT 17 07/13/2020 PHOS 3.7 03/05/2017 MAGNESIUM 2.3 06/17/2016 Lab Results Component Value Date SODIUM 138 07/13/2020 POTASSIUM 5.4 (H) 07/13/2020 CHLORIDE 107 07/13/2020 CREATININE 1.27 (H) 07/13/2020 BUN 31 (H) 03/31/2019 CALCIUM 9.6 07/13/2020 PHOS 3.7 03/05/2017 ALBUMIN 4.4 07/13/2020 AST 25 07/13/2020 ALT 17 07/13/2020 ALKPHOS 87 07/13/2020 Lab Results Component Value Date MALBCRTRAT 15.7 12/03/2016 @CBC@ Lab Results Component Value Date TSH 0.97 07/13/2020 FREET4 1.39 12/09/2017 No results found for: CPEPTIDE Lab Results Component Value Date CHOL 158 07/13/2020 TRIG 214 (H) 07/13/2020 HDLC 50 03/31/2019 LDLDIRECT 102 03/31/2019 Hypertension No recent measurements. Pt takes Benicar religiously, says that her BP has not been high in years. Recommend getting a home BP cuff and do some home measurements. Type 2 diabetes mellitus ([facility]) Glucoses are excellent and variability is acceptable for MDI patients. Recommendations: - Continue use of Dexcom CGM for frequent monitoring, insulin dose adjustments and safety (alarms) - Continue metformin, Ozempic and Jardiance - Continue current doses of Lantus and Humalog - Continue lowish carbs and calories. Vitamin D deficiency Recheck vitamin D with next labs; continue weekly D2. Hyperlipidemia Switch from simvastatin, 40 mg daily to atorvastatin, 20 mg daily and repeat lipids in 2 - 3 months. Hypothyroidism TSH has been stable, last measured in Jan, 2020. Will recheck. Orders Placed This Encounter Procedures ??? Vitamin D 25 hydroxy Standing Status: Future Number of Occurrences: 1 Standing Expiration Date: 10/31/2021 ??? Renal function panel Standing Status: Future Number of Occurrences: 1 Standing Expiration Date: 10/31/2021 ??? PTH Standing Status: Future Number of Occurrences: 1 Standing Expiration Date: 10/31/2021 ??? Lipid panel Standing Status: Future Number of Occurrences: 1 Standing Expiration Date: 10/31/2021 ??? Hemoglobin A1c Standing Status: Future Number of Occurrences: 1 Standing Expiration Date: 10/31/2021 ??? TSH reflex to free T4 Standing Status: Future Number of Occurrences: 1 Standing Expiration Date: 10/31/2021 Merna Bell MD 10/31/2020 2:07 PM documented in this encounter Miscellaneous Notes * Assessment & Plan Note - Merna Bell MD - 10/31/2020 2:06 PM CDT Associated Problem(s): Hypothyroidism TSH has been stable, last measured in Jan, 2020. Will recheck. * Assessment & Plan Note - Merna Bell MD - 10/31/2020 1:45 PM CDT Associated Problem(s): Hyperlipidemia Switch from simvastatin, 40 mg daily to atorvastatin, 20 mg daily and repeat lipids in 2 - 3 months. * Assessment & Plan Note - Merna Bell MD - 10/31/2020 1:45 PM CDT Associated Problem(s): Vitamin D deficiency Recheck vitamin D with next labs; continue weekly D2. * Assessment & Plan Note - Merna Bell MD - 10/31/2020 8:19 AM CDT Associated Problem(s): DM2 (diabetes mellitus, type 2) ([facility]) Glucoses are excellent and variability is acceptable for MDI patients. Recommendations: - Continue use of Dexcom CGM for frequent monitoring, insulin dose adjustments and safety (alarms) - Continue metformin, Ozempic and Jardiance - Continue current doses of Lantus and Humalog - Continue lowish carbs and calories. * Assessment & Plan Note - Merna Bell MD - 10/31/2020 8:18 AM CDT Associated Problem(s): Hypertension No recent measurements. Pt takes Benicar religiously, says that her BP has not been high in years. Recommend getting a home BP cuff and do some home measurements. * Addendum Note - Oli Gan - 10/31/2020 8:00 AM CDTAddended by: OLI GAN on: 01/13/2021 11:14 AM Modules accepted: Orders documented in this encounter Plan of Treatment Not on file documented as of this encounter Results * Vitamin D 25 hydroxy (01/13/2021 11:00 AM CDT) Vitamin D 25-OH 40 30 - 80 ng/mL [facility] Blood 01/13/2021 11:0 0 AM CDT 01/13/2021 11:35 AM CDT us Merna Bell MD LAB BLOOD ORDERABLES Final Re sult [facility] Department [place] [address] * (ABNORMAL) Renal function panel (01/13/2021 11:00 AM CDT) Pathologist [facility] Sodium 140 135 - 145 mmol/L [facility] Potassium, pl 4.7 3.3 - 4.9 mmol/L [facility] Chloride 108 97 - 110 mmol/L [facility] CO2 24 22 - 32 mmol/L [facility] Anion gap 8 2 - 15 mmol/L [facility] BUN 39(H) 8 - 25 mg/dL [facility] Creatinine 1.10 0.60 - 1.10 mg/dL [facility] Glucose 143 70 - 199 mg/dL [facility] Comment: Interpretive Data Fasting glucose >/= [...] classification and Diagnosis of Diabetes Diabetes Care 2017;40 (Suppl. 1):S11. Current interpretive data was last revised 2017. Calcium 9.6 8.5 - 10.3 mg/dL [facility] Phosphorus, pl 3.8 2.3 - 4.5 mg/dL [facility] Albumin 4.2 3.5 - 5.0 g/dL [facility] Blood 01/13/2021 11:0 0 AM CDT 01/13/2021 11:35 AM CDT Merna Bell MD LAB BLOOD ORDERABLES Final Re sult Performing Organization Address City[facility] Co de Phone Number [facility] [place] [address] * (ABNORMAL) PTH (01/13/2021 11:00 AM CDT) PTH 69(H) 15 - 65 pg/mL [facility] Blood 01/13/2021 11:0 0 AM CDT 01/13/2021 11:35 AM CDT Merna Bell MD LAB BLOOD ORDERABLES Final Re sult Performing Organization Address [facility] de Phone Number [facility] [place] [address] * (ABNORMAL) Lipid panel (01/13/2021 11:00 AM CDT) Cholesterol 178 30 - 199 mg/dL [facility] Comment: Interpretive Data Ages < or [...] Data was last revised on 2017. Triglycerides 213(H) <=149 mg/dL [facility] Comment: Interpretive Data Ages < [...] Data was last revised on 2017. HDL 44 >=40 mg/dL [facility] Comment: Interpretive Data Ages < [...] was last revised on 2017. LDL, calculated 91 <=129 mg/dL [facility] Comment: Interpretive Data Ages < or = 19 years ??Acceptable: ? <110 mg/dL ??Borderline high: ??110-129 mg/dL ??High: ?>or= 130 mg/dL Ages > or = 20 years ??Optimal: ? <100 mg/dL ??Near optimal: ?100-129 mg/dL ??Borderline high: ?? 130-159 mg/dL ??High: ?>160 mg/dL Literature References: 1. Expert Panel on Integrated Guidelines for Cardiovascular Health and Risk Reduction in Children and Adolescents. Pediatrics 2011;128:S213 2. NCEP Expert Panel. Circulation 2004;110:227 Current Interpretive Data was last revised on 2017. Non-HDL Cholesterol 134 mg/dL [facility] Comment: Interpretive Data Ages < [...] last revised on 2017. Chol/HDL ratio [address] [facility] Blood 01/13/2021 11:0 0 AM CDT 01/13/2021 11:35 AM CDT us Merna Bell MD LAB BLOOD ORDERABLES Final Re sult [facility] [address] [facility] Department [place] [address] * (ABNORMAL) Hemoglobin A1c (01/13/2021 11:00 AM CDT) Hgb A1C 7.2(H) 4.0 - 5.6 % [facility] Estimated Average Glucose 160 mg/dL [facility] Comment: The ADA recommends reporting an estimated Average Glucose (eAG) with all Hemoglobin A1c results using the equation derived from a study of 507 normal and diabetic adults. ??Minority populations were underrepresented and children were not included. ?? (Diabetes Care 2020; 43(S1): S66-S76). ??The eAG is not equivalent to a fasting glucose. Blood 01/13/2021 11:0 0 AM CDT 01/13/2021 11:35 AM CDT Merna Bell MD LAB BLOOD ORDERABLES Final Re sult [facility] Department [place] [address] * TSH reflex to free T4 (01/13/2021 11:00 AM CDT) TSH 1.15 0.30 - 4.20 mcIUnit/mL [facility] Blood 01/13/2021 11:0 0 AM CDT 01/13/2021 11:35 AM CDT Merna Bell MD LAB BLOOD ORDERABLES Final Re sult Performing Organization Address [facility] de Phone Number [facility] Department [place] [address] documented in this encounter Visit Diagnoses Diagnosis Mixed hyperlipidemia- Primary Hypertension, unspecified type Vitamin D deficiency 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
--- OUTSIDE RECORDS SUMMARY | 2024-04-29 14:11 | XMS_ITS | Encounter Summary ---
Author Organization [facility] Address [address] [place] [address] Phone Care Team Providers Care Hearse Driver Name Role Phone Elpidio Serrato MD Primary Care Provider [phone] Reason for Visit * Reason Comments Glaucoma Encounter Details Date Type Department Care Team (Late st Contact Info) Description 04/25/2020 8:00 AM ULTRASONOGRAPHER Office Visit [facility] [address] [facility] [place] [address] Makayla Ramos MD [address] [place] [address] Primary open angle glaucoma (POAG) of both eyes, moderate stage (Primary Dx); Nuclear sclerotic cataract of both eyes Social History Tobacco Use Types Packs/Day Years Used Date Smoking Tobacco: Never Smokeless Tobacco: Never Comments Unknown Sex and Gender Information Value Date Recorded Sex Assigned at Not on file Legal Sex Female 3:59 AM ULTRASONOGRAPHER Gender Identity Female 05/13/2021 4:21 PM ULTRASONOGRAPHER Sexual Orientation Not on file documented as of this encounter Patient Instructions * Patient Instructions* Makayla Ramos MD - 04/25/2020 8:00 AM ULTRASONOGRAPHER ASONOGRAPHER documented in this encounter Progress Notes * Makayla Ramos MD - 04/25/2020 8:00 AM CST Assessment/Plan Diagnoses and all orders for this visit: Primary open angle glaucoma (POAG) of both eyes, moderate stage (Primary) Assessment & Plan: POAG, former Dr. Thomas patient Mild OU [...] 6 months with DFE OU, testing thereafter Nuclear sclerotic cataract of both eyes Assessment & Plan: Nearing visual significance May need CEIOL/MIGS soon, but monitor for now I have seen/examined the patient and I agree with the findings/plan of the Resident/Fellow ASONOGRAPHER documented in this encounter Miscellaneous Notes * Assessment & Plan Note - Makayla Ramos MD - 04/16/2020 8:18 AM ULTRASONOGRAPHER Associated Problem(s): Primary open angle glaucoma (POAG) of both eyes, moderate stage POAG, former Dr. Thomas patient Mild OU [...] 6 months with DFE OU, testing thereafter ASONOGRAPHER ASONOGRAPHER * Assessment & Plan Note - Makayla Ramos MD - 04/16/2020 8:17 AM ULTRASONOGRAPHER Associated Problem(s): Pseudophakia of both eyes Nearing visual significance May need CEIOL/MIGS soon, but monitor for now ASONOGRAPHER documented in this encounter Plan of Treatment Not on file documented as of this encounter Visit Diagnoses Diagnosis Primary open angle glaucoma (POAG) of both eyes, moderate stage- Primary Nuclear sclerotic cataract of both eyes Senile nuclear sclerosis documented in this encounter Discontinued Medications Medication Sig Discontinue Reason Start Date End Da te Victoza 3-John 0.6 mg/0.1 mL (18 mg/3 mL) injection Alternate therapy 02/08/2020 04/25/2020 documented as of this encounter Historical Medications * This list may reflect changes made after this encounter. Medication Sig Dispense Quantity Refills Last Filled Start D ate End Date Victoza 3-John 0.6 mg/0.1 mL (18 mg/3 mL) injection 02/08/2020 04/25/2020 added in this encounter Eye Exam Visual Acuity (Snellen - Linear) Right eye Left eye Dist cc 20/25 -2 20/30 -1 Correction: Glasses Tonometry (Applanation, 8:01 AM) Right eye Left eye Pressure 18 18 Pupils Dark Light Shape React APD Right eye 4 3 Round + - Left eye 4 3 Round + - Extraocular Movement Right eye Left eye Full [...] spokes 2+ Nuclear sclerosis, 2+ cortical spokes Anterior Vitreous Normal Normal Fundus Exam Right eye Left eye Posterior Vitreous Normal Normal Disc thin inferior and te mporal rim, PPA Thin inferiorly, superiorly with PPA C/D Ratio 0.85 0.85-9 Macula Normal Normal Care Teams Hearse Driver Relationship Specialty Start Date End Date Elpidio Serrato MD PCP - General Internal Medicine 06/09/18 documented as of this encounter
--- OUTSIDE RECORDS SUMMARY | 2024-04-29 14:11 | XMS_ITS | Encounter Summary ---
Author Organization [facility] Address [address] [place] [address] Phone Care Team Providers Care Gallery Assistant Name Role Phone Elpidio Serrato MD Primary Care Provider [phone] Reason for Visit * Reason Onset Date Comments orders 11/01/2020 [facility] Encounter Details Date Type Department Care Team (Late st Contact Info) Description 11/01/2020 Telephone [facility] Endocrinology Metabolism and Lipid [address] [facility] 13th [place] [address] [place] [address] Princess Hu RMA orders ([facility]) Social History Tobacco Use Types Packs/Day Years Used Date Smoking Tobacco: Never Smokeless Tobacco: Never Comments Unknown Sex and Gender Information Value Date Recorded Sex Assigned at Not on file Legal Sex Female 3:59 AM SURGICAL COORDINATOR Gender Identity Female 05/13/2021 4:21 PM SURGICAL COORDINATOR Sexual Orientation Not on file documented as of this encounter Miscellaneous Notes * Telephone Encounter - Princess Hu RMA - 11/01/2020 8:08 AM CDT Images from the original note were not included. Faxed orders to [facility] documented in this encounter Plan of Treatment Not on file documented as of this encounter Visit Diagnoses Not on filedocumented in this encounter Care Teams Gallery Assistant Relationship Specialty Start Date End Date Elpidio Serrato MD PCP - General Internal Medicine 06/09/18 documented as of this encounter
--- OUTSIDE RECORDS SUMMARY | 2024-04-29 14:11 | XMS_ITS | Encounter Summary ---
Author Organization [facility] Address [address] [place] [address] Phone Care Team Providers Care Margarine Maker Name Role Phone Elpidio Serrato MD Primary Care Provider Reason for Visit * (Routine) - Closed Specialty Diagnoses / Procedures Referred By Constantino alvarado Referred To Contact Diagnoses Primary open angle glaucoma (POAG) of both eyes, moderate stage Procedures OCT, Optic Nerve - OU - Both Eyes Makayla Ramos MD [address] [place] [address] Phone: tel: fax: [facility] (All Locations) Referral ID Status Reason Start Date Expiration Date Visits Re quested Visits Authorized [id number] Closed 01/15/2020 02/13/2021 1 1 Encounter Details Date Type Department Care Team (Late st Contact Info) Description 01/25/2020 8:30 AM CDT Imaging Exam [facility] Ophthalmology [address] [facility] 6th [place] [address] Primary open angle glaucoma (POAG) of both eyes, moderate stage Social History Tobacco Use Types Packs/Day Years Used Date Smoking Tobacco: Never Smokeless Tobacco: Never Comments Unknown Sex and Gender Information Value Date Recorded Sex Assigned at Not on file Legal Sex Female 3:59 AM ACUTE DIALYSIS REGISTERED NURSE Gender Identity Female 05/13/2021 4:21 PM ACUTE DIALYSIS REGISTERED NURSE Sexual Orientation Not on file documented as of this encounter Plan of Treatment Not on file documented as of this encounter Procedures Procedure Name Priority Date/Time Associated Diagnosis Comments OCT, OPTIC NERVE - OU - BOTH EYES Routine 01/25/2020 8:06 AM CDT Primary open angle glaucoma (POAG) of both eyes, moderate stage documented in this encounter Results * OCT, Optic Nerve - OU - Both Eyes (01/25/2020 8:06 AM CDT) RNFL OS 65 micrometers RNFL OD 63 micrometers Anatomical Region Laterality Modality Head Other Narrative 01/25/2020 8:44 AM CDT Right Eye Reliability was good. Temporal progression was stable. Temporal thickness was normal. Superior progression was worsened. Superior thickness was showing abnormal thinning. Nasal progression was stable. Nasal thickness was normal. Inferior progression was stable. Inferior thickness was showing abnormal thinning. Average RNFL thickness 63 micrometers. Left Eye Reliability was good. Temporal progression was stable. Temporal thickness was normal. Superior progression was stable. Superior thickness was normal. Nasal progression was stable. Nasal thickness was normal. Inferior progression was stable. Inferior thickness was showing abnormal thinning. Average RNFL thickness 65 micrometers. us Makayla Ramos MD OPHTH TOMOGRAPHY Final Result documented in this encounter Visit Diagnoses Diagnosis Primary open angle glaucoma (POAG) of both eyes, moderate stage documented in this encounter Care Teams Margarine Maker Relationship Specialty Start Date End Date Elpidio Serrato MD PCP - General Internal Medicine 06/09/18 documented as of this encounter
--- OUTSIDE RECORDS SUMMARY | 2024-04-29 14:11 | XMS_ITS | Encounter Summary ---
Author Organization [facility] Address [address] [place] [address] Phone Care Team Providers Care Research Manufacturing Operator Name Role Phone Elpidio Serrato MD Primary Care Provider [phone] Reason for Visit * Reason Onset Date Comments Solara 01/06/2020 Encounter Details Date Type Department Care Team (Late st Contact Info) Description 01/06/[address] [facility] Endocrinology Metabolism and Lipid [address] [facility] Advanced Medicine 13th [place] [address] [place] [address] Aide Wolfe CMA Solara Social History Tobacco Use Types Packs/Day Years Used Date Smoking Tobacco: Never Smokeless Tobacco: Never Comments Unknown Sex and Gender Information Value Date Recorded Sex Assigned at Not on file Legal Sex Female 3:59 AM CORPORATE PLANNING MANAGER Gender Identity Female 05/13/2021 4:21 PM CORPORATE PLANNING MANAGER Sexual Orientation Not on file documented as of this encounter Miscellaneous Notes * Telephone Encounter - Aide Wolfe CMA - 01/06/2020 4:16 PM CDT SWO for medical supplies faxed to [phone] documented in this encounter Plan of Treatment Not on file documented as of this encounter Visit Diagnoses Not on filedocumented in this encounter Care Teams Research Manufacturing Operator Relationship Specialty Start Date End Date Elpidio Serrato MD PCP - General Internal Medicine 06/09/18 documented as of this encounter
--- OUTSIDE RECORDS SUMMARY | 2024-04-29 14:11 | XMS_ITS | Encounter Summary ---
Author Organization [facility] Address [address] [place] [address] Phone Care Team Providers Care Marketing Rotation Associate Name Role Phone Elpidio Serrato MD Primary Care Provider [phone] Encounter Details Date Type Department Care Team (Late st Contact Info) Description 02/08/2020 9:40 AM CDT Telemedicine [facility] Endocrinology Metabolism and Lipid [address] [facility] 13th [place] [address] [place] [address] Merna Bell MD [address] [facility] [address] [place], [place] [id number] Type 2 diabetes mellitus (CMS/HCC) (Primary Dx); Acquired hypothyroidism; Mixed hyperlipidemia; Vitamin D deficiency Social History Tobacco Use Types Packs/Day Years Used Date Smoking Tobacco: Never Smokeless Tobacco: Never Comments Unknown Sex and Gender Information Value Date Recorded Sex Assigned at Not on file Legal Sex Female 3:59 AM COMPLIANCE COUNSEL Gender Identity Female 05/13/2021 4:21 PM COMPLIANCE COUNSEL Sexual Orientation Not on file documented as of this encounter Patient Instructions * Patient Instructions* Merna Bell MD - 02/08/2020 9:40 AM CDT Glucose control is stable. Pt does not mention excessive co-pays, will check about the cost of an SGLT2i. My recommendations: - Switch Victoza for Ozempic, 1 mg weekly - Start Jardiance, 10 mg daily - Adjust insulin accordingly using Dexcom G6 for guidance - Recheck A1c and kidney function in 3 months - Increase activity, walking or whatever your knees can handle documented in this encounter Ordered Prescriptions Prescription Sig Dispense Quantity Refills Last Filled Start Date End Date empagliflozin (JARDIANCE) 10 mg tabletIndications: type 2 diabetes mellitus Take 1 tablet (10 mg total) by mouth daily 30 tablet 02/08/2020 02/12/2020 semaglutide (Ozempic) 1 mg/dose (2 mg/1.5 mL) pen injectorIndication s:type 2 diabetes mellitus Inject 1 mg under the skin once a week 2 Syringe 02/08/2020 02/12/2020 documented in this encounter Progress Notes * Merna Bell MD - 02/08/2020 9:40 AM CDT Images from the original note were not included. This was a telemedicine visit with Isabelle Lutz alone which took place via Telephone. During thevisit, I was located in the office and the patient was located at home in the [facility]. The patient visit started at 9:45 and ended at 10:08. Total encounter time was 35 minutes, which includes time spent today on pre charting, the patient encounter, and post charting. The patient: has been informed that the visit may not be secure and acknowledged the information. The option of participating in a telephone or video visit during the [facility] [place] [id number] emergencywas explained to them. After being given an opportunity to ask questions about and discuss this type of visit, they verbally consented to proceeding with the telephone/video visit and understand thatthis service replaces an office visit. MD Isabelle Sanchez is a 69 y.o. female who returns for follow up of Type 2 Diabetes, Hypertension and Hyperlipidemia. Her A1c at the last visit was 7.3%, which was the best in some time. She is taking??Lantus 48 units, Humalog 10-15 units with meals, occasionally missing occasional doses??if her BG is<90 mg/dl pre-meal. She also takes metformin 500 mg BID, Victoza 1.8 daily. ??She is now using the Dexcom G6, which she finds very helpful, and has reduced the frequency of her fingerstick glucosetests. ??She uses it continuously for monitoring, safety and to adjust insulin doses, but she uses the reader so download and view on Clarity is not possible. She has lows 1-2X per week on the Dexcomthat cause alarms. Her Dexcom is set to alarm at 80 mg/dl. She is tending to go up overnight, but her control during the day is better. Recent A1c is 7.2%, which is stable for her. ?? By way of complications Isabelle Lutz reports background diabetic retinopathy. She had laser to her right eye in May,, for glaucoma, not for diabetes. She is also being followed for cataracts. Follow-up showed improvement. She has mildly reduced kidney function, which is not new. She hadan episode of significant BARB with shingles admission a few years ago. She is not exercising, says that her weight is about the same. No new health problems or concerns. Patient Active Problem List Diagnosis ??? Actinic keratosis ??? Type 2 diabetes mellitus (CMS/HCC) ??? Hyperlipidemia ??? Hypertension ??? Hypothyroidism ??? Knee pain ??? Obesity ??? Osteoarthritis of knee ??? Trigger finger of left thumb ??? Primary open angle glaucoma (POAG) of both eyes, moderate stage ??? Nuclear sclerotic cataract of both eyes ??? Clavicle enlargement ??? Vitamin D deficiency Current Outpatient Medications: ??? blood glucose diagnostic (glucose blood) strip, Testing once daily, Disp: 100 each, Rfl: 2 ??? brimonidine-timolol (COMBIGAN) 0.2-0.5 % ophthalmic solution, Administer 1 drop [...] Disp: 45 mL, Rfl: 3 ??? insulin lispro (HumaLOG KwikPen Insulin) 100 unit/mL insulin pen, Inject 15 Units under the skin 3 (three) times a day, Disp: 27 pen, Rfl: 3 ??? insulin syringe needleless (BD INSULIN SYRINGE SLIP TIP) 1 mL syringe, USE DAILY W/LANTUS, Disp: , Rfl: ??? Lantus Solostar U-100 Insulin 100 unit/mL (3 mL) insulin pen, INJECT 45 UNITS SUBCUTANEOUSLY DAILY, Disp: 45 mL, Rfl: 2 ??? latanoprost (XALATAN) 0.005 % ophthalmic solution, Administer 1 drop into both eyes nightly, Disp: 7.5 mL, Rfl: 11 ??? levothyroxine (SYNTHROID) 88 mcg tablet, Take 1 tablet (88 mcg total) by mouth daily, Disp: 90 tablet, Rfl: 3 ??? metFORMIN (GLUCOPHAGE) 500 mg tablet, Take one tablet by mouth twice a day, Disp: 180 tablet, Rfl: 3 ??? olmesartan-hydrochlorothiazide (BENICAR HCT) 40-12.5 mg per tablet, Take 1 tablet by mouth daily, Disp: 30 tablet, Rfl: 11 ??? pen needle, diabetic (BD ULTRA-FINE WENDY PEN NEEDLE) 32 gauge x 5/32 needle, Use 4X daily, Disp: 300 each, Rfl: 3 ??? simvastatin (ZOCOR) 40 mg tablet, Take 1 tablet (40 mg total) by mouth daily, Disp: 90 tablet, Rfl: 3 ??? Victoza 3-John 0.6 mg/0.1 mL (18 mg/3 mL) injection, INJECT 1.8MG SUBCUTANEOUSLYDAILY. FOR TYPE 2 DIABETES MELLITUS, Disp: 27 mL, Rfl: 3 ROS: See HPI. All other systems are negative. There were no vitals taken for this visit. Physical Exam Vitals reviewed: No PE, phone visit. No results found for this or any previous visit (from the past 24 hour(s)). Chemistry Lab Results Component Value Date SODIUM 142 01/25/2020 POTASSIUM 5.8 (H) 01/25/2020 CHLORIDE 110 01/25/2020 CO2 23 01/25/2020 ANIONGAP 9 01/25/2020 BUNSER 33 (H) 01/25/2020 CREATININE 1.09 01/25/2020 GLUCOSE 163 01/25/2020 CALCIUM 9.4 01/25/2020 BILITOT 0.3 01/25/2020 PROTEIN 7.5 06/17/2016 ALBUMIN 4.2 01/25/2020 GFRNAA 53.8 (L) 03/31/2019 ALKPHOS 73 01/25/2020 AST 26 01/25/2020 ALT 17 01/25/2020 PHOS 3.7 03/05/2017 PHOS 4.2 12/03/2016 MAGNESIUM 2.3 06/17/2016 Lab Results Component Value Date SODIUM 142 01/25/2020 POTASSIUM 5.8 (H) 01/25/2020 CHLORIDE 110 01/25/2020 CREATININE 1.09 01/25/2020 BUN 31 (H) 03/31/2019 CALCIUM 9.4 01/25/2020 PHOS 3.7 03/05/2017 ALBUMIN 4.2 01/25/2020 AST 26 01/25/2020 ALT 17 01/25/2020 ALKPHOS 73 01/25/2020 Lab Results Component Value Date MALBCRTRAT 15.7 12/03/2016 @CBC@ Lab Results Component Value Date TSH 1.98 01/25/2020 FREET4 1.39 12/09/2017 No results found for: CPEPTIDE Lab Results Component Value Date CHOL 171 01/25/2020 TRIG 167 (H) 01/25/2020 HDLC 50 03/31/2019 LDLDIRECT 102 03/31/2019 Type 2 diabetes mellitus ([facility]) Glucose control is stable. Pt does not mention excessive co-pays, will check about the cost of an SGLT2i. My recommendations: - Switch Victoza for Ozempic, 1 mg weekly - Start Jardiance, 10 mg daily - Adjust insulin accordingly using Dexcom G6 for guidance - Recheck A1c and kidney function in 3 months - Increase activity, walking or whatever your knees can handle Hyperlipidemia LDL is at target, continue simvastatin. Hypothyroidism TSH is perfect, no changes to levothyroxine dose. Vitamin D deficiency Consider bone DXA with next visit in person, if possible. Merna Bell MD 02/08/2020 3:28 PM documented in this encounter Miscellaneous Notes * Assessment & Plan Note - Merna Bell MD - 02/08/2020 3:27 PM CDT Associated Problem(s): Vitamin D deficiency Consider bone DXA with next visit in person, if possible. * Assessment & Plan Note - Merna Bell MD - 02/08/2020 3:26 PM CDT Associated Problem(s): Hypothyroidism TSH is perfect, no changes to levothyroxine dose. * Assessment & Plan Note - Merna Bell MD - 02/08/2020 3:26 PM CDT Associated Problem(s): Hyperlipidemia LDL is at target, continue simvastatin. * Assessment & Plan Note - Merna Bell MD - 02/08/2020 3:23 PM CDT Associated Problem(s): DM2 (diabetes mellitus, type 2) (HCC) Glucose control is stable. Pt does not mention excessive co-pays, will check about the cost of an SGLT2i. My recommendations: - Switch Victoza for Ozempic, 1 mg weekly - Start Jardiance, 10 mg daily - Adjust insulin accordingly using Dexcom G6 for guidance - Recheck A1c and kidney function in 3 months - Increase activity, walking or whatever your knees can handle documented in this encounter Plan of Treatment Not on file documented as of this encounter Visit Diagnoses Diagnosis Type 2 diabetes mellitus (HCC)- Primary Acquired hypothyroidism Unspecified hypothyroidism Mixed hyperlipidemia Vitamin D deficiency documented in this encounter Discontinued Medications Medication Sig Discontinue Reason Start Date End Da te Victoza 3-John 0.6 mg/0.1 mL (18 mg/3 mL) injection INJECT 1.8MG SUBCUTANEOUSLYDAILY. FOR TYPE 2 DIABETES MELLITUS Alternate therapy 02/04/2020 02/08/2020 documented as of this encounter Care Teams Marketing Rotation Associate Relationship Specialty Start Date End Date Elpidio Serrato MD PCP - General Internal Medicine 06/09/18 documented as of this encounter
--- OUTSIDE RECORDS SUMMARY | 2024-04-29 14:11 | XMS_ITS | Encounter Summary ---
Author Organization [facility] Address [address] [place] [address] Care Team Providers Care Retail Service Technician Name Role Phone Elpidio Serrato MD Primary Care Provider [phone] Encounter Details Date Type Department Care Team (Late st Contact Info) Description 01/25/2020 11:00 AM CDT Lab [facility] Advanced Medicine [facility] Advanced Medicine ([facility]) [address] [place] [phone] [place] [address] [place] [address] [address], [place] [id number] Type 2 diabetes mellitus (CMS/HCC); Acquired hypothyroidism; Mixed hyperlipidemia Discharge Disposition: Discharge to home or self care Social History Tobacco Use Types Packs/Day Years Used Date Smoking Tobacco: Never Smokeless Tobacco: Never Comments Unknown Sex and Gender Information Value Date Recorded Sex Assigned at Not on file Legal Sex Female 3:59 AM BUSINESS ANALYST INTERN Gender Identity Female 05/13/2021 4:21 PM BUSINESS ANALYST INTERN Sexual Orientation Not on file documented as of this encounter Discharge Disposition Disposition Code Departure Means Destination Discharge to home or self care documented in this encounter Plan of Treatment Not on file documented as of this encounter Procedures Procedure Name Priority Date/Time Associated Diagnosis Comments DIFFERENTIAL AUTO Routine 01/25/2020 9:2 2 AM CDT Type 2 diabetes mellitus (CMS/HCC) THYROID FUNCTION CASCADE Routine 01/25/2020 9:22 AM CDT Acquired hypothyroidism CBC WITH AUTO DIFFERENTIAL Routine 01/25/2020 9:22 AM CDT Type 2 diabetes mellitus ([facility]/HCC) ALBUMIN CREATININE RATIO, URINE Routine 01/25/2020 9:22 AM CDT Type 2 diabetes mellitus ([facility]/HCC) HEMOGLOBIN A1C Routine 01/25/2020 9:22 AM CDT Type 2 diabetes mellitus ([facility]/HCC) LIPID PANEL Routine 01/25/2020 9:22 AM CDT Mixed hyperlipidemia COMPREHENSIVE METABOLIC PANEL Routine 01/25/2020 9:22 AM CDT Type 2 diabetes mellitus ([facility]/HCC) documented in this encounter Results * Differential, auto (01/25/2020 9:22 AM CDT) Neutrophil abs 4.7 1.7 - 6.5 K/cumm [facility] Imm gran abs 0.0 0.0 - 0.1 K/cumm [facility] Lymphocyte abs 1.8 0.8 - 3.3 K/cumm [facility] Monocyte abs 0.6 0.2 - 0.8 K/cumm [facility] Eosinophil abs 0.1 0.0 - 0.5 K/cumm [facility] Basophil abs 0.0 0.0 - 0.1 K/cumm [facility] Neutrophil pct 64.3 % [facility] Comment: Interpretive Data Percent cell count reference ranges are not reported, since discordance with absolute values may lead to misinterpretation of CBC data. Current Interpretive Data was last revised on 2017. Imm gran pct 0.3 % [facility] Comment: Interpretive Data Percent cell count reference ranges are not reported, since discordance with absolute values may lead to misinterpretation of CBC data. Current Interpretive Data was last revised on 2017. Lymphocyte pct 25.5 % [facility] Comment: Interpretive Data Percent cell count reference ranges are not reported, since discordance with absolute values may lead to misinterpretation of CBC data. Current Interpretive Data was last revised on 2017. Monocyte pct 7.8 % [facility] Comment: Interpretive Data Percent cell count reference ranges are not reported, since discordance with absolute values may lead to misinterpretation of CBC data. Current Interpretive Data was last revised on 2017. Eosinophil pct 1.5 % [facility] Comment: Interpretive Data Percent cell count reference ranges are not reported, since discordance with absolute values may lead to misinterpretation of CBC data. Current Interpretive Data was last revised on 2017. Basophil pct 0.6 % [facility] Comment: Interpretive Data Percent cell count reference ranges are not reported, since discordance with absolute values may lead to misinterpretation of CBC data. Current Interpretive Data was last revised on 2017. Blood specimen (specimen) 01/25/2020 9:22 AM CDT 01/25/2020 9:46 AM CDT us Merna Bell MD LAB BLOOD ORDERABLES Final Re sult [facility] Department [place] [address] * CBC with auto differential (01/25/2020 9:22 AM CDT) WBC 7.2 3.8 - 9.9 K/cumm [facility] Hgb 12.1 11.9 - 15.5 g/dL [facility] Hct 37.2 35.6 - 45.5 % [facility] Plt 206 150 - 400 K/cumm [facility] MPV 10.8 9.1 - 12.3 fL [facility] RBC 4.07 3.90 - 5.20 M/cumm [facility] MCV 91.4 81.3 - 96.4 fL [facility] MCH 29.7 27.1 - 33.3 pg [facility] MCHC 32.5 32.3 - 35.7 g/dL [facility] RDW CV 12.6 11.1 - 14.9 % [facility] RDW SD 42.0 35.7 - 48.1 fL [facility] NRBC abs 0.00 0.00 - 0.01 K/cumm [facility] Blood specimen (specimen) 01/25/2020 9:22 AM CDT 01/25/2020 9:46 AM CDT us Merna Bell MD LAB BLOOD ORDERABLES Final Re sult [facility] Department [place] [address] * (ABNORMAL) Lipid panel (01/25/2020 9:22 AM CDT) Cholesterol 171 30 - 199 mg/dL [facility] Comment: Interpretive Data Ages < or = [...] Data was last revised on 2017. Triglycerides 167(H) <=149 mg/dL [facility] Comment: Interpretive Data Ages < or = [...] Data was last revised on 2017. HDL 48 >=40 mg/dL [facility] Comment: Interpretive Data Ages < or = [...] was last revised on 2017. LDL, calculated 90 <=129 mg/dL [facility] Comment: Interpretive Data Ages < or = [...] was last revised on 2017. Non-HDL Cholesterol 123 mg/dL [facility] Comment: Interpretive Data Ages < or = [...] last revised on 2017. Chol/HDL ratio 4 [facility] Blood specimen (specimen) 01/25/2020 9:22 AM CDT 01/25/2020 9:46 AM CDT Merna Bell MD LAB BLOOD ORDERABLES Final Re sult Performing Organization Address [facility] de Phone Number [facility] [place] [address] * (ABNORMAL) Hemoglobin A1c (01/25/2020 9:22 AM CDT) Hgb A1C 7.2(H) 4.0 - 5.6 % [facility] Estimated Average Glucose 160 mg/dL [facility] Comment: The ADA recommends reporting an estimated Average Glucose (eAG) with all Hemoglobin A1c results using the equation derived from a study of 507 normal and diabetic adults. ??Minority populations were underrepresented and children were not included. ?? (Diabetes Care 31:0536-7125, 2008). ??The eAG is not equivalent to a fasting glucose. Blood specimen (specimen) 01/25/2020 9:22 AM CDT 01/25/2020 9:46 AM CDT Merna Bell MD LAB BLOOD ORDERABLES Final Re sult Performing Organization Address [facility] de Phone Number [facility] [place] [address] * TSH reflex to free T4 (01/25/2020 9:22 AM CDT) Pathologist [facility] TSH 1.98 0.30 - 4.20 mcIUnit/mL [facility] Blood specimen (specimen) 01/25/2020 9:22 AM CDT 01/25/2020 9:46 AM CDT Merna Bell MD LAB BLOOD ORDERABLES Final Re sult Performing Organization Address [facility] de Phone Number [facility] Department [place] [address] * Albumin Creatinine Ratio, Urine (01/25/2020 9:22 AM CDT) [facility] Albumin Ur <12.0 mg/L [facility] Comment: Interpretive Data No reference range established. Current interpretive data was last revised 2018. Creatinine Ur 107.9 mg/dL [facility] Comment: Interpretive Data No reference range established. Current interpretive data was last revised 2018. Albumin Creatinine Ratio, Ur <11 1 - 29 mg/g [facility] Urine 01/25/2020 9:22 AM CDT 01/25/2020 9:46 AM CDT Merna Bell MD LAB URINE ORDERABLES Final Re sult Performing Organization Address [facility] de Phone Number [facility] Department [place] [address] * (ABNORMAL) Comprehensive metabolic panel (01/25/2020 9:22 AM CDT) [facility] Sodium 142 135 - 145 mmol/L [facility] Potassium, pl 5.8(H) 3.3 - 4.9 mmol/L [facility] Comment:Hemolyzed; Potassium value may be falsely elevated by as much as 0.3-0.5 mmol/L. Suggest redraw and reanalysis. Chloride 110 97 - 110 mmol/L [facility] CO2 23 22 - 32 mmol/L [facility] Anion gap 9 2 - 15 mmol/L [facility] BUN 33(H) 8 - 25 mg/dL [facility] Creatinine 1.09 0.60 - 1.10 mg/dL [facility] Glucose 163 70 - 199 mg/dL [facility] Comment: Interpretive Data Fasting glucose >/= 126 [...] interpretive data was last revised 2017. Calcium 9.4 8.5 - 10.3 mg/dL [facility] Bilirubin, total 0.3 0.1 - 1.2 mg/dL [facility] Protein, pl 7.1 6.5 - 8.5 g/dL [facility] Albumin 4.2 3.5 - 5.0 g/dL [facility] Alk phos 73 40 - 130 Units/L [facility] ALT 17 7 - 45 Units/L [facility] AST 26 10 - 45 Units/L [facility] Comment:Hemolyzed; result ma y be falsely elevated Blood specimen (specimen) 01/25/2020 9:22 AM CDT 01/25/2020 9:46 AM CDT us Merna Bell MD LAB BLOOD ORDERABLES Final Re sult [facility] Department [place] [address] documented in this encounter Visit Diagnoses Diagnosis Type 2 diabetes mellitus (HCC) Acquired hypothyroidism Unspecified hypothyroidism Mixed hyperlipidemia documented in this encounter Care Teams Retail Service Technician Relationship Specialty Start Date End Date Elpidio Serrato MD PCP - General Internal Medicine 1/28/19 documented as of this encounter
--- OUTSIDE RECORDS SUMMARY | 2024-04-29 14:11 | XMS_ITS | Encounter Summary ---
Author Organization [facility] Address [address] [place] [address] Phone Care Team Providers Care Kersey Department Supervisor Name Role Phone Elpidio Serrato MD Primary Care Provider Reason for Referral * Diagnostic Imaging (Routine) - Closed Specialty Diagnoses / Procedures Referred By Contqi t Referred To Contact Diagnoses Age-related osteoporosis without current pathological fracture Vitamin D deficiency Fracture Procedures Dexa Axial Skeleton Bone Density 1 or 2 Site Merna Bell MD Phone: tel: fax: [facility] (All Locations) Referral ID Status Reason Start Date Expiration Date Visits Re quested Visits Authorized [id number] Closed 06/13/2020 07/13/2021 1 1 S AGENT FINANCIAL REPORT SERVICE Encounter Details Date Type Department Care Team (Latest Contact Info) Description 06/13/2020 9:20 AM SALES AGENT FINANCIAL REPORT SERVICE Telemedicine [facility] Endocrinology Metabolism and Lipid [address] [facility] 13th [place] [address] [place] [id number] Merna Bell MD [address] [facility] [address] [place] [address] 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, with long-term current use of insulin, unspecified laterality (CMS/HCC) (Primary Dx); Acquired hypothyroidism; Vitamin D deficiency; Mixed hyperlipidemia; Fracture; Age-related osteoporosis without current pathological fracture Social History Tobacco Use Types Packs/Day Years Used Date Smoking Tobacco: Never Smokeless Tobacco: Never Comments Unknown Sex and Gender Information Value Date Recorded Sex Assigned at Not on file Legal Sex Female 3:59 AM SALES AGENT FINANCIAL REPORT SERVICE Gender Identity Female 05/13/2021 4:21 PM SALES AGENT FINANCIAL REPORT SERVICE Sexual Orientation Not on file documented as of this encounter Progress Notes * Merna Bell MD - 06/13/2020 9:20 AM CST Images from the original note were not included. This was a telemedicine visit with Isabelle Lutz alone which took place via Telephone. During thevisit, I was located at home and the patient was located at home in the state [facility]. The patient visit started at 12:40 pm and ended at 1:10 pm. My total encounter time on 06/13/2020 was 45 minutes which was spent in the activities documented in the note. This includes time spent prior to the visit and after the visit in direct care of the patient. This time does not include time spent in any separately reportable services.. The patient: has been informed that the visit may not be secure and acknowledged the information. The option of participating in a telephone or video visit during the [address] emergency[address] explained to them. After being given an opportunity to ask questions about and discuss this type of visit, they verbally consented to proceeding with the telephone/video visit and understand thatthis service replaces an office visit. MD Sammy Sanchezcasey Sims Nelda is a 70 y.o. female who returns [...] of her fingerstick glucose tests.?She uses it continuously for frequent monitoring, safety and to adjust insulin doses,but she uses the reader so download and view on Clarity is not possible. ??She has lows 1-2X per week on the Dexcom that cause alarms. ??Her Dexcom is set to alarm at 80 mg/dl. ??She is tending to goup overnight, but her control during the day is better. ??Recent A1c is 7.2%, which is stable for her. ?? By way of complications Isabelle Lutz reports background diabetic retinopathy She had laser to her right eye in May,, for glaucoma, not for diabetes. She is also being followed for cataracts.?? Follow-up showed improvement. ??She has mildly reduced kidney function, which is not new. ??She had an episode of significant BARB with shingles admission a few years ago. She is not exercising, says that her weight is about the same. ?? Isabelle has severe osteoporosis of her knees, and has had a couple of minor fractures with minimal trauma. She has a number of risk factors for osteoporosis, including age, thyroid disease, falls. Her last DXA was in 2013, report unable to open. A repeat DXA would be advisable, possible need for kimberly atment. Patient Active Problem List Diagnosis ??? Actinic [...] 11 ??? celecoxib (CeleBREX) 200 mg capsule, Take 1 capsule (200 mg total) by mouth daily, Disp: 90 capsule, Rfl: 3 ??? empagliflozin [...] week, Disp: 6 Syringe, Rfl: 3 ??? simvastatin (ZOCOR) 40 mg tablet, TAKE 1 TABLET BY MOUTH EVERY DAY, Disp: 90 tablet, Rfl: 3 ROS: See HPI. All other [...] 01/25/2020 HDLC 50 03/31/2019 LDLDIRECT 102 03/31/2019 Hypothyroidism Has been well controlled on low dose levothyroxine, will check TSH. Type 2 diabetes mellitus ([facility]) Glucose control could not be fully assessed on the telemedicine visit without Dexcom download. Recommend: - A1c - Continue current therapy - Check kidney function Vitamin D deficiency Check 25OHD, especially if considering therapy for osteoporosis. Hyperlipidemia Last LDL was 90, but diabetes therapies have changed. Will recheck. Merna Bell MD 06/13/2020 1:44 PM S AGENT FINANCIAL REPORT SERVICE documented in this encounter Miscellaneous Notes * Assessment & Plan Note - Merna Bell MD - 06/13/2020 1:43 PM SALES AGENT FINANCIAL REPORT SERVICE Associated Problem(s): Hyperlipidemia Last LDL was 90, but diabetes therapies have changed. Will recheck. S AGENT FINANCIAL REPORT SERVICE * Assessment & Plan Note - Merna Bell MD - 06/13/2020 1:43 PM SALES AGENT FINANCIAL REPORT SERVICE Associated Problem(s): Vitamin D deficiency Check 25OHD, especially if considering therapy for osteoporosis. S AGENT FINANCIAL REPORT SERVICE * Assessment & Plan Note - Merna Bell MD - 06/13/2020 1:39 PM SALES AGENT FINANCIAL REPORT SERVICE Associated Problem(s): DM2 (diabetes mellitus, type 2) ([facility]) Glucose control could not be fully assessed on the telemedicine visit without Dexcom download. Recommend: - A1c - Continue current therapy - Check kidney function S AGENT FINANCIAL REPORT SERVICE S AGENT FINANCIAL REPORT SERVICE * Assessment & Plan Note - Merna Blel MD - 06/13/2020 1:39 PM SALES AGENT FINANCIAL REPORT SERVICE Associated Problem(s): Hypothyroidism Has been well controlled on low dose levothyroxine, will check TSH. S AGENT FINANCIAL REPORT SERVICE * Addendum Note - Savita Vargas - 06/13/2020 9:20 AM CSTAddended by: SAVITA VARGAS on: 07/13/2020 09:35 AM Modules accepted: Orders S AGENT FINANCIAL REPORT SERVICE documented in this encounter Plan of Treatment Not on file documented as of this encounter Results * Dexa Axial Skeleton Bone Density 1 or 2 Site (07/13/2020 11:59 AM SALES AGENT FINANCIAL REPORT SERVICE) Anatomical Region Laterality Modality Body N/A Radiographic Luba ging Narrative 07/17/2020 9:18 PM SALES AGENT FINANCIAL REPORT SERVICE Patient Name: Isabelle Lutz Date of : 1950 Date of scan: 07/13/2020 Bone mineral density was performed on a iPerceptions Discovery Densitometer. ?? Machine Cross-calibration and Precision studies have been performed with a least significant change of 0.024 g/cm at the spine, 0.020 g/cm at the total proximal femur, and 0.014g/cm at the forearm. HISTORY: ??This is a 70 y.o. postmenopausal female with a history of thyroid disease. Currently on treatment with thyroid hormone and vitamin D. History of tobacco use: Social History Tobacco Use Smoking Status Never Smoker INDICATIONS: Menopause status. FINDINGS: BONE MINERAL DENSITY OF THE LUMBAR SPINE Bone Mineral Density (BMD) of the lumbar spine was measured from L1-L4 and the average density was calculated to be 1.064 gm/cm. This corresponds to a T-score standard deviations from the mean of young adults of 0.2. When compared to the previous study of 05/11/14 there has been no significant change noted. BONE MINERAL DENSITY OF THE PROXIMAL FEMUR [...] gm/cm -4.0% decrease which is considered significant. SUMMARY: Bone mineral density shows evidence of low bone mass in the hip and moderately increased fracture risk. There has been significant decrease in bone mineral density since previous measurement. ADDITIONAL COMMENTS: If the patient has a history of a fragility fracture, a fracture that occurred with trauma equivalent to a fall from a standing position or less, then the diagnosis is osteoporosis. The risk of osteoporotic fracture increases approximately 2-fold for each 1.0 SD decrease in T-score. However, low bone density is not the only risk factor for fracture. Other factors include patient? s age, previous osteoporotic fracture or prior fracture as an adult, loss of height of greater than 2 inches, corticosteroid use, risk of falling, risk of injury, and family history of osteoporosis. Not everyone with low bone mineral density has osteoporosis. Osteomalacia and other metabolic bone disorders should also be considered where indicated. ??Patients who have osteoporosis should be evaluated for specific diseases and conditions (secondary causes) that may cause or contribute to bone loss. Consider repeating this study in 1-2 years to assess the patient? s response to treatment, if applicable. It is recommended that any follow up exam be performed on the same machine if possible for better accuracy. DEFINITIONS: Osteoporosis: ??BMD at or below -2.5 T-score Osteopenia (low bone mass): ??BMD between -1.0 and-2.5 T-score. The Bone Health Program adopts the following WHO definitions: Osteoporosis: ??BMD below -2.5 S.D. as compared to the BMD of young normal adults. Osteopenia or Low Bone Mass: ??BMD between -1.0 and -2.5 S.D. below the BMD of young normal adults. Normal Bone Density: ??BMD equal to or greater than -1.0 S.D. as compared to the BMD of young normal adults. References: 1) Nam, Annals of Internal Medicine 114(11): ??919-923 (1990) 2) Lewis, Lancet 341 : 72-75 (1992) 3) Black, Journal Bone and Mineral Research 7(6): 633-8 (1991) 4) Roque, Journal Bone and Mineral Research 8(10):1227-33 (1992) The history and data sections of the bone mineral density scan were prepared by Katie Cabezas who is accredited by the International Society of Clinical Densitometry. The overall patient assessment and scan interpretation were performed by Shayna Portillo M.D. who is certified by the International Society of Clinical Densitometry. [id number] us Merna Bell MD IMG DXA PROCEDURES Final Resu lt * (ABNORMAL) Hemoglobin A1c (07/13/2020 9:40 AM SALES AGENT FINANCIAL REPORT SERVICE) Hgb A1C 6.8(H) 4.0 - 5.6 % [facility] Estimated Average Glucose 148 mg/dL [facility] Comment: The ADA recommends reporting an estimated Average Glucose (eAG) with all Hemoglobin A1c results using the equation derived from a study of 507 normal and diabetic adults. ??Minority populations were underrepresented and children were not included. ?? (Diabetes Care 31:2510-4945, 2008). ??The eAG is not equivalent to a fasting glucose. Blood specimen (specimen) 07/13/2020 9:40 AM SALES AGENT FINANCIAL REPORT SERVICE 07/13/2020 10:06 AM SALES AGENT FINANCIAL REPORT SERVICE us Merna Bell MD LAB BLOOD ORDERABLES Final Re sult [facility] [address] [facility] Department [place] [address] * (ABNORMAL) Comprehensive metabolic panel (07/13/2020 9:40 AM SALES AGENT FINANCIAL REPORT SERVICE) Pathologist [facility] Sodium 138 135 - 145 mmol/L [facility] Potassium, pl 5.4(H) 3.3 - 4.9 mmol/L [facility] Chloride 107 97 - 110 mmol/L [facility] CO2 23 22 - 32 mmol/L [facility] Anion gap 8 2 - 15 mmol/L [facility] BUN 47(H) 8 - 25 mg/dL [facility] Creatinine 1.27(H) 0.60 - 1.10 mg/dL [facility] Glucose 184 70 - 199 mg/dL [facility] Comment: Interpretive Data Fasting glucose [...] 2017. Calcium 9.6 8.5 - 10.3 mg/dL [facility] Bilirubin, total 0.2 0.1 - 1.2 mg/dL [facility] Protein, pl 7.5 6.5 - 8.5 g/dL [facility] Albumin 4.4 3.5 - 5.0 g/dL [facility] Alk phos 87 40 - 130 Units/L [facility] ALT 17 7 - 45 Units/L [facility] AST 25 10 - 45 Units/L [facility] Blood specimen (specimen) 07/13/2020 9:40 AM SALES AGENT FINANCIAL REPORT SERVICE 07/13/2020 10:06 AM SALES AGENT FINANCIAL REPORT SERVICE us Merna Bell MD LAB BLOOD ORDERABLES Final Re sult [facility] [address] [facility] Department [place] [address] * (ABNORMAL) Lipid panel (07/13/2020 9:40 AM SALES AGENT FINANCIAL REPORT SERVICE) Cholesterol 158 30 - 199 mg/dL [facility] Comment: Interpretive Data Ages < [...] Data was last revised on 2017. Triglycerides 214(H) <=149 mg/dL [facility] Comment: Interpretive Data Ages < [...] Data was last revised on 2017. HDL 41 >=40 mg/dL [facility] Comment: Interpretive Data Ages < or = [...] was last revised on 2017. LDL, calculated 74 <=129 mg/dL [facility] Comment: Interpretive Data Ages < or = [...] was last revised on 2017. Non-HDL Cholesterol 117 mg/dL [facility] Comment: Interpretive Data Ages < [...] last revised on 2017. Chol/HDL ratio 4 [facility] Blood specimen (specimen) 07/13/2020 9:40 AM SALES AGENT FINANCIAL REPORT SERVICE 07/13/2020 10:06 AM SALES AGENT FINANCIAL REPORT SERVICE us Merna Bell MD LAB BLOOD ORDERABLES Final Re sult Performing Organization Address [facility] de Phone Number [facility] [address] [facility] [place] [address] * (ABNORMAL) PTH (07/13/2020 9:40 AM SALES AGENT FINANCIAL REPORT SERVICE) PTH 83(H) 15 - 65 pg/mL [facility] Blood specimen (specimen) 07/13/2020 9:40 AM SALES AGENT FINANCIAL REPORT SERVICE 07/13/2020 10:06 AM SALES AGENT FINANCIAL REPORT SERVICE Merna Bell MD LAB BLOOD ORDERABLES Final Re sult Performing Organization Address [facility]/ZIP Co de Phone Number [facility] [place] [address] * TSH reflex to free T4 (07/13/2020 9:40 AM SALES AGENT FINANCIAL REPORT SERVICE) Pathologist [facility] TSH 0.97 0.30 - 4.20 mcIUnit/mL [facility] Blood specimen (specimen) 07/13/2020 9:40 AM SALES AGENT FINANCIAL REPORT SERVICE 07/13/2020 10:06 AM SALES AGENT FINANCIAL REPORT SERVICE Merna Bell MD LAB BLOOD ORDERABLES Final Re sult Performing Organization Address [facility] [place] [address] * Albumin Creatinine Ratio, Urine (07/13/2020 9:40 AM SALES AGENT FINANCIAL REPORT SERVICE) Pathologist [facility] Albumin Ur <12.0 mg/L [facility] Comment: Interpretive Data No reference range established. Current interpretive data was last revised 2018. Creatinine Ur 103.2 mg/dL [facility] Comment: Interpretive Data No reference range established. Current interpretive data was last revised 2018. 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, with long-term current use of insulin, unspecified laterality (HCC)- Primary Acquired hypothyroidism Unspecified hypothyroidism Vitamin D deficiency Mixed hyperlipidemia Fracture Closed fracture of unspecified bone Age-related osteoporosis without current pathological fracture Age-related osteoporosis without current pathological fracture Vitamin D deficiency Fracture Closed fracture of unspecified bone Osteopenia of left hip Post-menopausal Asymptomatic postmenopausal status (age-related) (natural) documented in this encounter Care Teams Kersey Department Supervisor Relationship Specialty Start Date End Date Elpidio Serrato MD PCP - General Internal Medicine 06/09/18 documented as of this encounter
--- OUTSIDE RECORDS SUMMARY | 2024-04-29 14:11 | XMS_ITS | Encounter Summary ---
Author Organization [facility] Address [address] [place] [address] Phone Care Team Providers Care Board Winder Name Role Phone Elpidio Serrato MD Primary Care Provider [phone] Reason for Referral * (Routine) - Closed Specialty Diagnoses / Procedures Referred By Contac t Referred To Contact Diagnoses Primary open angle glaucoma (POAG) of both eyes, moderate stage Procedures OCT, Optic Nerve - OU - Both Eyes Makayla Ramos MD [address] [place] [address] Phone: tel: fax: [facility] (All Locations) Referral ID Status Reason Start Date Expiration Date Visits Re quested Visits Authorized [id number] Closed 01/15/2020 02/13/2021 1 1 * (Routine) - Closed Specialty Diagnoses / Procedures Referred By Contqi t Referred To Contact Diagnoses Primary open angle glaucoma (POAG) of both eyes, moderate stage Procedures Forrest Visual Field - OU - Both Eyes Makayla Ramos MD [address] [place] [address] Phone: tel: fax: [facility] (All Locations) Referral ID Status Reason Start Date Expiration Date Visits Re quested Visits Authorized [id number] Closed 01/15/2020 02/13/2021 1 1 Encounter Details Date Type Department Care Team (Late st Contact Info) Description 01/15/2020 Orders Only [facility] Ophthalmology [address] [facility] [place] [address] Makayla Ramos MD [address] [place] [address] Primary open angle glaucoma (POAG) of both eyes, moderate stage (Primary Dx) Social History Tobacco Use Types Packs/Day Years Used Date Smoking Tobacco: Never Smokeless Tobacco: Never Comments Unknown Sex and Gender Information Value Date Recorded Sex Assigned at Not on file Legal Sex Female 3:59 AM NUCLEAR TECHNICIAN Gender Identity Female 05/13/2021 4:21 PM NUCLEAR TECHNICIAN Sexual Orientation Not on file documented [...] OPHTH VISUAL FIELD Final Resu lt * OCT, Optic Nerve - OU - [...] stage documented in this encounter Care Teams Board Winder Relationship Specialty Start Date End Date Elpidio Serrato MD PCP - General Internal Medicine 06/09/18 documented as of this encounter
--- OUTSIDE RECORDS SUMMARY | 2024-04-29 14:11 | XMS_ITS | Encounter Summary ---
Author Organization [facility] Address [address] [place] [address] Phone Care Team Providers Care Aoc Plans Intelligence Officer Chief Name Role Phone Elpidio Serrato MD Primary Care Provider [phone] Reason for Visit * Reason Onset Date Comments Med Refill 02/12/2020 jardiance and oz empic Encounter Details Date Type Department Care Team (Late st Contact Info) Description 02/12/2020 Telephone [facility] Endocrinology Metabolism and Lipid [address] [facility] 13th [place] [address] [place] [address] Malika Carter RN Med Refill (jardiance and ozempic) Social History Tobacco Use Types Packs/Day Years Used Date Smoking Tobacco: Never Smokeless Tobacco: Never Comments Unknown Sex and Gender Information Value Date Recorded Sex Assigned at Not on file Legal Sex Female 3:59 AM PROJECT MANAGER INDUSTRIAL Gender Identity Female 05/13/2021 4:21 PM PROJECT MANAGER INDUSTRIAL Sexual Orientation Not on file documented as of this encounter Ordered Prescriptions Prescription Sig Dispense Quantity Refills Last Filled Start Date End Date empagliflozin (JARDIANCE) 10 mg tabletIndications: type 2 diabetes mellitus Take 1 tablet (10 mg total) by mouth daily 90 tablet 3 02/12/2020 02/06/2021 semaglutide (Ozempic) 1 mg/dose (2 mg/1.5 mL) pen injectorIndication s:type 2 diabetes mellitus Inject 1 mg under the skin once a week 6 Syringe 3 02/12/2020 02/06/2021 documented in this encounter Miscellaneous Notes * Telephone Encounter - Merna Bell MD - 02/15/2020 1:28 PM CDT I drafted the letter, but addressed it to the patient. I was unable to add a fax number to the address list. Can someone fax it from here? * Telephone Encounter - Malika Carter RN - 02/12/2020 12:18 PM CDT Patient is requesting letter to be sent to [facility] regarding necessity for Celebrex. [phone] (fax) documented in this encounter Plan of Treatment Not on file documented as of this encounter Visit Diagnoses Diagnosis Type 2 diabetes mellitus (HCC) documented in this encounter Discontinued Medications Medication Sig Discontinue Reason Start Date End Da te semaglutide (Ozempic) 1 mg/dose (2 mg/1.5 mL) pen injectorIndications:type 2 diabetes mellitus Inject 1 mg under the skin once a week Reorder 02/08/2020 02/12/2020 empagliflozin (JARDIANCE) 10 mg tabletIndications:type 2 diabetes mellitus Take 1 tablet (10 mg total) by mouth daily Reorder 02/12/2020 02/12/2020 documented as of this encounter Care Teams Aoc Plans Intelligence Officer Chief Relationship Specialty Start Date End Date Elpidio Serrato MD PCP - General Internal Medicine 06/09/18 documented as of this encounter
--- OUTSIDE RECORDS SUMMARY | 2024-04-29 14:11 | XMS_ITS | Encounter Summary ---
Author Organization [facility] Healthcare Address [address] [place] [address] Care Team Providers Care Pipeline Construction Inspector Name Role Phone Elpidio Serrato MD Primary Care Provider [phone] Encounter Details Date Type Department Care Team (Late st Contact Info) Description 07/13/2020 9:50 AM CLIENT DEVELOPMENT DIRECTOR Lab [facility] Advanced Medicine [facility] Advanced Medicine ([facility]) [address] [place] [address] [phone] Merna Bell MD [address] 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, with long-term current use of insulin, unspecified laterality (CMS/HCC); Mixed hyperlipidemia; Vitamin D deficiency Discharge Disposition: Discharge to home or self care Social History Tobacco Use Types Packs/Day Years Used Date Smoking Tobacco: Never Smokeless Tobacco: Never Comments Unknown Sex and Gender Information Value Date Recorded Sex Assigned at Not on file Legal Sex Female 3:59 AM CLIENT DEVELOPMENT DIRECTOR Gender Identity Female 05/13/2021 4:21 PM CLIENT DEVELOPMENT DIRECTOR Sexual Orientation Not on file documented as of this encounter Discharge Disposition Disposition Code Departure Means Destination Discharge to home or self care documented in this encounter Plan of Treatment Not on file documented as of this encounter Procedures Procedure Name Priority Date/Time Associated Diagnosis Comments THYROID FUNCTION CASCADE Routine 07/13/2020 9:40 AM CLIENT DEVELOPMENT DIRECTOR Vitamin D deficiency ALBUMIN CREATININE RATIO, URINE Routine 07/13/2020 9:40 AM CLIENT DEVELOPMENT DIRECTOR 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, with long-term current use of insulin, unspecified laterality (CMS/HCC) PTH Routine 07/13/2020 9:40 AM CLIENT DEVELOPMENT DIRECTOR Vitamin D deficiency HEMOGLOBIN A1C Routine 07/13/2020 9:40 AM CLIENT DEVELOPMENT DIRECTOR 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, with long-term current use of insulin, unspecified laterality (CMS/HCC) LIPID PANEL Routine 07/13/2020 9:40 AM CLIENT DEVELOPMENT DIRECTOR Mixed hyperlipidemia COMPREHENSIVE METABOLIC PANEL Routine 07/13/2020 9:40 AM CLIENT DEVELOPMENT DIRECTOR 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 Current interpretive data was last revised 2018. Creatinine Ur 103.2 mg/dL [facility] Comment: Interpretive Data No reference range established. Current interpretive data was last revised 2018. Albumin Creatinine Ratio, Ur <12 1 - 29 mg/g [facility] Urine 07/13/2020 9:40 AM CLIENT DEVELOPMENT DIRECTOR 07/13/2020 10:06 AM CLIENT DEVELOPMENT DIRECTOR us Merna Bell MD LAB URINE ORDERABLES Final Re sult [facility] Department [place] [address] * TSH reflex to free T4 (07/13/2020 9:40 AM CLIENT DEVELOPMENT DIRECTOR) TSH 0.97 0.30 - 4.20 mcIUnit/mL [facility] Blood specimen (specimen) 07/13/2020 9:40 AM CLIENT DEVELOPMENT DIRECTOR 07/13/2020 10:06 AM CLIENT DEVELOPMENT DIRECTOR Merna Bell MD LAB BLOOD ORDERABLES Final Re sult Performing Organization Address [facility] de Phone Number [facility] [place] [address] * (ABNORMAL) PTH (07/13/2020 9:40 AM CLIENT DEVELOPMENT DIRECTOR) PTH 83(H) 15 - 65 pg/mL [facility] Blood specimen (specimen) 07/13/2020 9:40 AM CLIENT DEVELOPMENT DIRECTOR 07/13/2020 10:06 AM CLIENT DEVELOPMENT DIRECTOR Merna Bell MD LAB BLOOD ORDERABLES Final Re sult Performing Organization Address [facility] de Phone Number [facility] [place] [address] * (ABNORMAL) Lipid panel (07/13/2020 9:40 AM CLIENT DEVELOPMENT DIRECTOR) Cholesterol 158 30 - 199 mg/dL [facility] Comment: Interpretive Data Ages < or [...] revised on 2017. Triglycerides 214(H) <=149 mg/dL [facility] Comment: Interpretive Data Ages < or [...] revised on 2017. HDL 41 >=40 mg/dL [facility] Comment: Interpretive Data Ages < or [...] 2017. LDL, calculated 74 <=129 mg/dL [facility] Comment: Interpretive Data Ages < or [...] revised on 2017. Non-HDL Cholesterol 117 mg/dL [facility] Comment: Interpretive Data Ages < or [...] last revised on 2017. Chol/HDL ratio 4 [facility] Blood specimen (specimen) 07/13/2020 9:40 AM CLIENT DEVELOPMENT DIRECTOR 07/13/2020 10:06 AM CLIENT DEVELOPMENT DIRECTOR us Merna Bell MD LAB BLOOD ORDERABLES Final Re sult [facility] Department [place] [address] * (ABNORMAL) Comprehensive metabolic panel (07/13/2020 9:40 AM CLIENT DEVELOPMENT DIRECTOR) Sodium 138 135 - 145 mmol/L [facility] Potassium, pl 5.4(H) 3.3 - 4.9 mmol/L [facility] Chloride 107 97 - 110 mmol/L [facility] CO2 23 22 - 32 mmol/L [facility] Anion gap 8 2 - 15 mmol/L [facility] BUN 47(H) 8 - 25 mg/dL [facility] Creatinine 1.27(H) 0.60 - 1.10 mg/dL [facility] Glucose 184 70 - 199 mg/dL [facility] [...] 2017. Calcium 9.6 8.5 - 10.3 mg/dL [facility] Bilirubin, total 0.2 0.1 - 1.2 mg/dL [facility] Protein, pl 7.5 6.5 - 8.5 g/dL [facility] Albumin 4.4 3.5 - 5.0 g/dL [facility] Alk phos 87 40 - 130 Units/L [facility] ALT 17 7 - 45 Units/L [facility] AST 25 10 - 45 Units/L [facility] Blood specimen (specimen) 07/13/2020 9:40 AM CLIENT DEVELOPMENT DIRECTOR 07/13/2020 10:06 AM CLIENT DEVELOPMENT DIRECTOR Merna Bell MD LAB BLOOD ORDERABLES Final Re sult [facility] One [facility] Department of Laboratories [place], [place] [id number] * (ABNORMAL) Hemoglobin A1c (07/13/2020 9:40 AM CLIENT DEVELOPMENT DIRECTOR) Hgb A1C 6.8(H) 4.0 - 5.6 % [facility] Estimated Average Glucose 148 mg/dL [facility] Comment: The ADA recommends reporting an estimated Average Glucose (eAG) with all Hemoglobin A1c results using the equation derived from a study of 507 normal and diabetic adults. ??Minority populations were underrepresented and children were not included. ?? (Diabetes Care 31:5063-5596, 2008). ??The eAG is not equivalent to a fasting glucose. 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
--- OUTSIDE RECORDS SUMMARY | 2024-04-29 14:11 | XMS_ITS | Encounter Summary ---
Author Organization [facility] Address [address] [place] [address] Phone Care Team Providers Care Core Cutter And Reamer Name Role Phone Elpidio Serrato MD Primary Care Provider [phone] Reason for Visit * Reason Comments Glaucoma Encounter Details Date Type Department Care Team (Late st Contact Info) Description 01/25/2020 8:45 AM CDT Office Visit [facility] Ophthalmology [address] [facility] [place] [address] Makayla Ramos MD [address] [place] [address] Primary open angle glaucoma (POAG) of both eyes, moderate stage (Primary Dx); Nuclear sclerotic cataract of both eyes Social History Tobacco Use Types Packs/Day Years Used Date Smoking Tobacco: Never Smokeless Tobacco: Never Comments Unknown Sex and Gender Information Value Date Recorded Sex Assigned at Not on file Legal Sex Female 3:59 AM ANESTHESIA DIRECTOR Gender Identity Female 05/13/2021 4:21 PM ANESTHESIA DIRECTOR Sexual Orientation Not on file documented as of this encounter Patient Instructions * Patient Instructions* Makayla Ramos MD - 01/25/2020 8:45 AM CDT documented in this encounter Progress Notes * Makayla Ramos MD - 01/25/2020 8:45 AM CDT Assessment/Plan Diagnoses and all orders [...] testing stable, ok to be around 21 Nuclear sclerotic cataract of both eyes Assessment & Plan: Nearing visual significance May need CEIOL/MIGS I have seen/examined the patient and I agree with the findings/plan of the Resident/Fellow documented in this encounter Miscellaneous Notes * Assessment & Plan Note - Makayla Ramos MD - 01/24/2020 7:36 PM CDT Associated Problem(s): Primary open angle glaucoma [...] testing stable, ok to be around 21 * Assessment & Plan Note - Makayla Ramos MD - 01/24/2020 7:36 PM CDT Associated Problem(s): Pseudophakia of both eyes Nearing visual significance May need CEIOL/MIGS soon, but monitor for now documented in this encounter Plan of Treatment Not on file documented as of this encounter Visit Diagnoses Diagnosis Primary open angle glaucoma (POAG) of both eyes, moderate stage- Primary Nuclear sclerotic cataract of both eyes Senile nuclear sclerosis documented in this encounter Eye Exam Visual Acuity (Snellen - Linear) Right eye Left eye Dist cc 20/20 20/25 Correction: Glasses Tonometry (Applanation, 8:32 AM) Right eye Left eye Pressure 26 26 Pupils Dark Light Shape React APD Right [...] 0.85 0.85-9 Macula Normal Normal Care Teams Core Cutter And Reamer Relationship Specialty Start Date End Date Elpidio Serrato MD PCP - General Internal Medicine 06/09/18 documented as of this encounter
--- OUTSIDE RECORDS SUMMARY | 2024-04-29 14:11 | XMS_ITS | Encounter Summary ---
Author Organization [facility] Address [address] [place] [address] Phone Care Team Providers Care Tub Attendant Name Role Phone Elpidio Serrato MD Primary Care Provider [phone] Reason for Visit * Reason Onset Date Comments Prior Auth 02/19/2020 Celebrex 200mg C ap (APPROVED 01/20/2020 thur 02/18/2021) Encounter Details Date Type Department Care Team (Late st Contact Info) Description 02/19/2020 Telephone [facility] Endocrinology Metabolism and Lipid [address] [facility] Advanced Medicine [address]th [place] [address] [place] [address] Sonja Land CMA Prior Auth (Celebrex 200mg Cap (APPROVED 01/20/2020 thur 02/18/2021)) Social History Tobacco Use Types Packs/Day Years Used Date Smoking Tobacco: Never Smokeless Tobacco: Never Comments Unknown Sex and Gender Information Value Date Recorded Sex Assigned at Not on file Legal Sex Female 3:59 AM AVIATION MANAGER Gender Identity Female 05/13/2021 4:21 PM AVIATION MANAGER Sexual Orientation Not on file documented as of this encounter Miscellaneous Notes * Telephone Encounter - Aaliyah Jara MA - 02/19/2020 12:35 PM CDT Arthur: [id number] [employer] CeleBREX 200MG capsules Prior Auth Status: Approved Prior auth Coverage date: 01/20/2020 through 02/18/2021 * Telephone Encounter - Sonja Land RMA - 02/19/2020 9:30 AM CDT Prior Auth Req: Celebrex 200mg Cap Take 1 cap (200mg total) by mouth daily documented in this encounter Plan of Treatment Not on file documented as of this encounter Visit Diagnoses Not on filedocumented in this encounter Care Teams Tub Attendant Relationship Specialty Start Date End Date Elpidio Serrato MD PCP - General Internal Medicine 06/09/18 documented as of this encounter
--- OUTSIDE RECORDS SUMMARY | 2024-04-29 14:11 | XMS_ITS | Encounter Summary ---
Author Organization [facility] [employer] [facility] Address [address] [place] [address] Phone Care Team Providers Care Cabin Equipment Supervisor Name Role Phone Elpidio Serrato MD Primary Care Provider Encounter Details Date Type Department Care Team (Late st Contact Info) Description 01/13/2020 Orders Only [facility] Endocrinology Metabolism and Lipid [address] [facility] Advanced Medicine 13th [place] [address] [place] [address] Merna Bell MD [address] [facility] [address] [place] [address] Type 2 diabetes mellitus (CMS/HCC) (Primary Dx); Acquired hypothyroidism; Mixed hyperlipidemia Social History Tobacco Use Types Packs/Day Years Used Date Smoking Tobacco: Never Smokeless Tobacco: Never Comments Unknown Sex and Gender Information Value Date Recorded Sex Assigned at Not on file Legal Sex Female 3:59 AM LABORATORY DIRECTOR Gender Identity Female 05/13/2021 4:21 PM LABORATORY DIRECTOR Sexual Orientation Not on file documented as of this encounter Plan of Treatment Not on file documented as of this encounter Results * (ABNORMAL) Comprehensive metabolic panel (01/25/2020 9:22 AM CDT) Sodium 142 135 - 145 mmol/L [facility] Potassium, pl 5.8(H) 3.3 - 4.9 mmol/L [facility] Comment:Hemolyzed; Potassium value may be falsely elevated by as much as 0.3-0.5 mmol/L. Suggest redraw and reanalysis. Chloride 110 97 - 110 mmol/L [facility] CO2 23 22 - 32 mmol/L [facility] Anion gap 9 2 - 15 mmol/L [facility] BUN 33(H) 8 - 25 mg/dL [facility] Creatinine 1.09 0.60 - 1.10 mg/dL [facility] Glucose 163 70 - 199 mg/dL [facility] Comment: Interpretive Data Fasting glucose [...] 2017. Calcium 9.4 8.5 - 10.3 mg/dL [facility] Bilirubin, total 0.3 0.1 - 1.2 mg/dL [facility] Protein, pl 7.1 6.5 - 8.5 g/dL [facility] Albumin 4.2 3.5 - 5.0 g/dL [facility] Alk phos 73 40 - 130 Units/L [facility] ALT 17 7 - 45 Units/L [facility] AST 26 10 - 45 Units/L [facility] Comment:Hemolyzed; result ma y be falsely elevated Blood specimen (specimen) 01/25/2020 9:22 AM CDT 01/25/2020 9:46 AM CDT us Merna Bell MD LAB BLOOD ORDERABLES Final Re sult [facility] One [facility] Department [place] [address] * Albumin Creatinine Ratio, Urine (01/25/2020 9:22 AM CDT) Albumin Ur <12.0 mg/L [facility] Comment: Interpretive Data No reference range established. Current interpretive data was last revised 2018. Creatinine Ur 107.9 mg/dL [facility] Comment: Interpretive Data No reference range established. Current interpretive data was last revised 2018. Albumin Creatinine Ratio, Ur <11 1 - 29 mg/g [facility] Urine 01/25/2020 9:22 AM CDT 01/25/2020 9:46 AM CDT Merna Bell MD LAB URINE ORDERABLES Final Re sult Performing Organization Address [facility]/ZIP Co de Phone Number [facility] [place] [address] * TSH reflex to free T4 (01/25/2020 9:22 AM CDT) [facility] TSH 1.98 0.30 - 4.20 mcIUnit/mL [facility] Blood specimen (specimen) 01/25/2020 9:22 AM CDT 01/25/2020 9:46 AM CDT Merna Bell MD LAB BLOOD ORDERABLES Final Re sult Performing Organization Address [facility] de Phone Number [facility] [place] [address] * (ABNORMAL) Hemoglobin A1c (01/25/2020 9:22 AM CDT) [facility] Hgb A1C 7.2(H) 4.0 - 5.6 % [facility] Estimated Average Glucose 160 mg/dL [facility] Comment: The ADA recommends reporting an estimated Average Glucose (eAG) with all Hemoglobin A1c results using the equation derived from a study of 507 normal and diabetic adults. ??Minority populations were underrepresented and children were not included. ?? (Diabetes Care 31:8483-9129, 2008). ??The eAG is not equivalent to a fasting glucose. Blood specimen (specimen) 01/25/2020 9:22 AM CDT 01/25/2020 9:46 AM CDT us Merna Bell MD LAB BLOOD ORDERABLES Final Re sult [facility] Department [place] [address] * (ABNORMAL) Lipid panel (01/25/2020 9:22 AM CDT) Cholesterol 171 30 - 199 mg/dL [facility] Comment: Interpretive Data Ages < or [...] revised on 2017. Triglycerides 167(H) <=149 mg/dL [facility] Comment: Interpretive Data Ages < or [...] revised on 2017. HDL 48 >=40 mg/dL [facility] Comment: Interpretive Data Ages < or = [...] on 2017. LDL, calculated 90 <=129 mg/dL [facility] Comment: Interpretive Data Ages < [...] on 2017. Non-HDL Cholesterol 123 mg/dL [facility] Comment: Interpretive Data Ages < or [...] last revised on 2017. Chol/HDL ratio 4 [facility] Blood specimen (specimen) 01/25/2020 9:22 AM CDT 01/25/2020 9:46 AM CDT us Merna Bell MD LAB BLOOD ORDERABLES Final Re sult [facility] One [facility] Department [place] [address] * CBC with auto differential (01/25/2020 9:22 AM CDT) WBC 7.2 3.8 - 9.9 K/cumm [facility] Hgb 12.1 11.9 - 15.5 g/dL [facility] Hct 37.2 35.6 - 45.5 % [facility] Plt 206 150 - 400 K/cumm [facility] MPV 10.8 9.1 - 12.3 fL [facility] RBC 4.07 3.90 - 5.20 M/cumm [facility] MCV 91.4 81.3 - 96.4 fL [facility] MCH 29.7 27.1 - 33.3 pg [facility] MCHC 32.5 32.3 - 35.7 g/dL [facility] RDW CV 12.6 11.1 - 14.9 % [facility] RDW SD 42.0 35.7 - 48.1 fL [facility] NRBC abs 0.00 0.00 - 0.01 K/cumm [facility] Blood specimen (specimen) 01/25/2020 9:22 AM CDT 01/25/2020 9:46 AM CDT us Merna Bell MD LAB BLOOD ORDERABLES Final Re sult Performing Organization Address City/State/[facility] Co de Phone Number [facility] One [facility] Department [place] [address] documented in this encounter Visit Diagnoses Diagnosis Type 2 diabetes mellitus (HCC)- Primary Acquired hypothyroidism Unspecified hypothyroidism Mixed hyperlipidemia documented in this encounter Care Teams Cabin Equipment Supervisor Relationship Specialty Start Date End Date Elpidio Serrato MD PCP - General Internal Medicine 06/09/18 documented as of this encounter
--- OUTSIDE RECORDS SUMMARY | 2024-04-29 14:11 | XMS_ITS | Encounter Summary ---
Author Organization [facility] Address [address] [place] [address] Phone Care Team Providers Care Clinical Nursing Professor Name Role Phone Elpidio Serrato MD Primary Care Provider [phone] Reason for Visit * Reason Comments Osteoporosis * Diagnostic Imaging (Routine) - Closed Specialty Diagnoses / Procedures Referred By Contac t Referred To Contact Diagnoses Age-related osteoporosis without current pathological fracture Vitamin D deficiency Fracture Procedures Dexa Axial Skeleton Bone Density 1 or 2 Site Merna Bell MD Phone: tel: fax: [facility] (All Locations) Referral ID Status Reason Start Date Expiration Date Visits Re quested Visits Authorized [id number] Closed 06/13/2020 07/13/2021 1 1 Encounter Details Date Type Department Care Team (Latest Contact Info) Description 07/13/2020 10:10 AM ALLERGIST/PEDIATRIC PULMONOLOGIST Clinical Support [facility] Bone Health [facility] 5th [place] [address] [place] [address] Age-related osteoporosis without current pathological fracture ; Vitamin D deficiency; Fracture; Age-related osteoporosis without current pathological fracture; Osteopenia of left hip; Post-menopausal Social History Tobacco Use Types Packs/Day Years Used Date Smoking Tobacco: Never Smokeless Tobacco: Never Comments Unknown Sex and Gender Information Value Date Recorded Sex Assigned at Not on file Legal Sex Female 3:59 AM ALLERGIST/PEDIATRIC PULMONOLOGIST Gender Identity Female 05/13/2021 4:21 PM ALLERGIST/PEDIATRIC PULMONOLOGIST Sexual Orientation Not on file documented as of this encounter Plan of Treatment Not on file documented as of this encounter Procedures Procedure Name Priority Date/Time Associated Diagnosis Comments DEXA AXIAL SKELETON BONE DENSITY 1 OR MORE SITES Schedule Routine, Read Routine (OP Routine) 07/13/2020 11:59 AM ALLERGIST/PEDIATRIC PULMONOLOGIST Age-related osteoporosis without current pathological fracture Vitamin D deficiency Fracture documented in this encounter Results * Dexa Axial Skeleton Bone Density 1 or 2 Site (07/13/2020 11:59 AM ALLERGIST/PEDIATRIC PULMONOLOGIST) Anatomical Region Laterality Modality Body N/A Radiographic Luba ging Narrative 07/17/2020 9:18 PM ALLERGIST/PEDIATRIC PULMONOLOGIST Patient Name: Isabelle Lutz Date of : 1950 Date of scan: 07/13/2020 Bone mineral density was performed on a [employer] Densitometer. ?? Machine Cross-calibration and Precision [...] and Mineral Research 7(6): 633-8 (1991) 4) Jude, Journal Bone and Mineral Research 8(10):1227-33 (1992) The history and data sections of the bone mineral density scan were prepared by Katie Cabezas who is accredited by the International Society of Clinical Densitometry. The overall patient assessment and scan interpretation were performed by Shayna Portillo M.D. who is certified by the International Society of Clinical Densitometry. [id number] us Merna Bell MD IMG DXA PROCEDURES Final Resu lt documented in this encounter Visit Diagnoses Diagnosis Age-related osteoporosis without current pathological fracture Vitamin D deficiency Fracture Closed fracture of unspecified bone Osteopenia of left hip Post-menopausal Asymptomatic postmenopausal status (age-related) (natural) documented in this encounter Care Teams Clinical Nursing Professor Relationship Specialty Start Date End Date Elpidio Serrato MD PCP - General Internal Medicine 06/09/18 documented as of this encounter
--- OUTSIDE RECORDS SUMMARY | 2024-04-29 14:11 | XMS_ITS | Encounter Summary ---
Author Organization [facility] Address [address] [place] [address] Phone Care Team Providers Care Application Analyst Name Role Phone Elpidio Serrato MD Primary Care Provider Encounter Details Date Type Department Care Team (Late st Contact Info) Description 10/24/2020 8:00 AM CDT Office Visit [facility] Ophthalmology [address] [facility] [place] [phone] Makayla Ramos MD [address] [place] [address] Nuclear sclerotic cataract of both eyes (Primary Dx); Primary open angle glaucoma (POAG) of both eyes, moderate stage Social History Tobacco Use Types Packs/Day Years Used Date Smoking Tobacco: Never Smokeless Tobacco: Never Comments Unknown Sex and Gender Information Value Date Recorded Sex Assigned at Not on file Legal Sex Female 3:59 AM PROTOTYPE CARPENTER Gender Identity Female 05/13/2021 4:21 PM PROTOTYPE CARPENTER Sexual Orientation Not on file documented as of this encounter Progress Notes * Makayla Ramos MD - 10/24/2020 8:00 AM CDT Assessment/Plan Diagnoses and all orders for this visit: Nuclear sclerotic cataract of both eyes (Primary) Assessment & Plan: Becoming VS at this time BAT 20/30 and 20/40 Follow 6 months with IOL Master Primary open angle glaucoma (POAG) of both eyes, moderate stage Assessment & Plan: Moderate S/p SLT OD IOP again borderline today Goal under 21, 23 OU today Continue 3 classes, plan for CEIOL/MIGS when visually significant Follow 6 months with IOL Master and HVF OU I have seen/examined the patient and I agree with the findings/plan of the Resident/Fellow documented in this encounter Miscellaneous Notes * Assessment & Plan Note - Makayla Ramos MD - 10/24/2020 8:29 AM CDT Associated Problem(s): Primary open angle glaucoma (POAG) of both eyes, moderate stage Moderate S/p SLT OD IOP again borderline today Goal under 21, 23 OU today Continue 3 classes, plan for CEIOL/MIGS when visually significant Follow 6 months with IOL Master and HVF OU * Assessment & Plan Note - Makayla Ramos MD - 10/24/2020 8:28 AM CDT Associated Problem(s): Pseudophakia of both eyes Becoming VS at this time BAT 20/30 and 20/40 Follow 6 months with IOL Master documented in this encounter Plan of Treatment Not on file documented as of this encounter Visit Diagnoses Diagnosis Nuclear sclerotic cataract of both eyes- Primary Senile nuclear sclerosis Primary open angle glaucoma (POAG) of both eyes, moderate stage documented in this encounter Eye Exam Visual Acuity (Snellen - Linear) Right eye Left eye Dist cc 20/25 -1 20/30 Dist ph cc 20/20 -2 20/20 Correction: Glasses Tonometry (Applanation, 8:12 AM) Right eye Left eye Pressure 23 23 Pupils Dark Light Shape React APD Right eye 4 3 Round + - Left eye 4 3 Round + - Visual Vann Right eye Left eye Full Full Extraocular Movement Right eye Left eye Full Full Neuro/Psych Oriented x3: Yes Mood/Affect: Normal Dilation Both eyes: 1% Tropicamide @ 8:12 AM Glare Testing (Transilluminator) High Right eye 20/40 Left eye 20/30 External Exam Right eye Left eye External [...] Normal Normal Periphery Normal Normal Care Teams Application Analyst Relationship Specialty Start Date End Date Elpidio Serrato MD PCP - General Internal Medicine 06/09/18 documented as of this encounter
--- OUTSIDE RECORDS SUMMARY | 2024-04-29 14:12 | XMS_ITS | Encounter Summary ---
Author Organization [facility] Address [address] [place] [address] Phone Care Team Providers Care Estimator Jewelry Name Role Phone Elpidio Serrato MD Primary Care Provider [phone] Encounter Details Date Type Department Care Team (Late st Contact Info) Description 06/25/2018 Telephone [facility] Endocrinology Metabolism and Lipid [address] [facility] 13th [place] [address] [place] [phone] Malika Carter RN Social History Tobacco Use Types Packs/Day Years Used Date Smoking Tobacco: Never Smokeless Tobacco: Never Comments Unknown Sex and Gender Information Value Date Recorded Sex Assigned at Not on file Legal Sex Female 3:59 AM DIGITAL MEDIA SPECIALIST Gender Identity Female 05/13/2021 4:21 PM DIGITAL MEDIA SPECIALIST Sexual Orientation Not on file documented as of this encounter Miscellaneous Notes * Telephone Encounter - Malika Carter RN - 06/25/2018 12:46 PM DIGITAL MEDIA SPECIALIST Patient called to review lab results. Notified that BUN was elevated at 27. Patient also requested to have results of x-ray of clavicle. Results deferred to physician for interpretation and physiciannotified. TAL MEDIA SPECIALIST documented in this encounter Plan of Treatment Not on file documented as of this encounter Visit Diagnoses Not on filedocumented in this encounter Care Teams Estimator Jewelry Relationship Specialty Start Date End Date Elpidio Serrato MD PCP - General Internal Medicine 06/09/18 documented as of this encounter
--- OUTSIDE RECORDS SUMMARY | 2024-04-29 14:12 | XMS_ITS | Encounter Summary ---
Author Organization [facility] Address [address] [place] [address] Phone Care Team Providers Care Tunnel Man Name Role Phone Elpidio Serrato MD Primary Care Provider [phone] Encounter Details Date Type Department Care Team (Late st Contact Info) Description 07/03/2019 8:15 AM LEAD ATHLETE Office Visit [facility] Ophthalmology [address] [place] [address] [place] [phone] Niranjan Thomas MD [address] [facility] [address] [place], [place] [id number] Primary open angle glaucoma (POAG) of both eyes, moderate stage (Primary Dx); Nuclear sclerotic cataract of both eyes Social History Tobacco Use Types Packs/Day Years Used Date Smoking Tobacco: Never Smokeless Tobacco: Never Comments Unknown Sex and Gender Information Value Date Recorded Sex Assigned at Not on file Legal Sex Female 3:59 AM LEAD ATHLETE Gender Identity Female 05/13/2021 4:21 PM LEAD ATHLETE Sexual Orientation Not on file documented as of this encounter Patient Instructions * Patient Instructions* Niranjan Thomas MD - 07/03/2019 8:15 AM LEAD ATHLETE ATHLETE documented in this encounter Progress Notes * Niranjan Thomas MD - 07/03/2019 8:15 AM CST ASSESSMENT/ORDERS/PROCEDURES PERFORMED TODAY Assessment/Plan Diagnoses and all orders for this visit: Primary open angle glaucoma (POAG) of both eyes, moderate stage (Primary) Assessment & Plan: Patient returns S/P SLT OD -05/28/2019 -IOP Today by Ta 13/12 by tonopen. -A1C was around 7% at last visit on March 31. RTC 5 months for intraocular pressure (IOP) by applanation and HANS Drops: Combigan BID OU Latanoprost QHS OD Nuclear sclerotic cataract of both eyes Assessment & Plan: NVS. Continue to Monitor. I am scribing in the presence of Dr. Thomas on 07/03/2019, HALLEY Ramos. I have examined the patient and agree with the resident/fellow's findings and plan as documented. Niranjan Thomas MD PLAN FOR NEXT VISIT Return in about 5 months (around 12/01/2019), or IOP applanation and HANS, for IOP check. ATHLETE documented in this encounter Miscellaneous Notes * Assessment & Plan Note - Sandy Aguirre - 07/02/2019 11:12 AM CSTAssociated Problem(s): Pseudophakia of both eyes NVS. Continue to Monitor. I am scribing in the presence of Dr. Thomas on 07/03/2019, HALLEY Ramos. I have examined the patient and agree with the resident/fellow's findings and plan as documented. Niranjan Thomas MD ATHLETE ATHLETE ATHLETE * Assessment & Plan Note - Sandy Aguirre - 07/02/2019 11:01 AM CSTAssociated Problem(s): Primary open angle glaucoma (POAG) of both eyes, moderate stage Patient returns S/P SLT OD -05/28/2019 -IOP Today 16/16 by Ta 13/12 by tonopen. -A1C was around 7% at last visit on March 31. RTC 5 months for intraocular pressure (IOP) by applanation and HANS Drops: Combigan BID OU Latanoprost QHS OD ATHLETE ATHLETE ATHLETE documented in this encounter Plan of Treatment Not on file documented as of this encounter Visit Diagnoses Diagnosis Primary open angle glaucoma (POAG) of both eyes, moderate stage- Primary Nuclear sclerotic cataract of both eyes Senile nuclear sclerosis documented in this encounter Eye Exam Visual Acuity (Snellen - Linear) Right eye Left eye Dist cc 20/20 20/25 Correction: Glasses Tonometry #1 (Applanation, 8:45 AM) Right eye Left eye Pressure 20 18 Tonometry #2 (Applanation, 8:58 AM) Right eye Left eye Pressure 16 16 Pupils Dark Light Shape React APD Right eye 3 2.5 Round Minimal None Left eye 3 2.5 Round Minimal None Neuro/Psych Oriented x3: Yes Mood/Affect: Normal [...] superiorly with PPA C/D Ratio 0.85 0.85-9 Care Teams Tunnel Man Relationship Specialty Start Date End Date Elpidio Serrato MD PCP - General Internal Medicine 06/09/18 documented as of this encounter
--- OUTSIDE RECORDS SUMMARY | 2024-04-29 14:12 | XMS_ITS | Encounter Summary ---
Author Organization [facility] Address [address] [place] [address] Phone Care Team Providers Care Hired Help Name Role Phone Elpidio Serrato MD Primary Care Provider [phone] Encounter Details Date Type Department Care Team (Late st Contact Info) Description 12/03/[address] [facility] Endocrinology Metabolism and Lipid [address] [facility] Medicine 13th [place] [address] [place] [phone] Gerson Cuadra CMA Social History Tobacco Use Types Packs/Day Years Used Date Smoking Tobacco: Never Smokeless Tobacco: Never Comments Unknown Sex and Gender Information Value Date Recorded Sex Assigned at Not on file Legal Sex Female 3:59 AM PLASTICS TECHNICIAN Gender Identity Female 05/13/2021 4:21 PM PLASTICS TECHNICIAN Sexual Orientation Not on file documented as of this encounter Progress Notes * Gerson Cuadra MA - 12/03/2018 3:38 PM CDT FAXED LMN TO [facility] ON 12-01-18 AT [phone] documented in this encounter Plan of Treatment Not on file documented as of this encounter Visit Diagnoses Not on filedocumented in this encounter Care Teams Hired Help Relationship Specialty Start Date End Date Elpidio Serrato MD PCP - General Internal Medicine 06/09/18 documented as of this encounter
--- OUTSIDE RECORDS SUMMARY | 2024-04-29 14:12 | XMS_ITS | Encounter Summary ---
Author Organization [facility] Address [address] [place] [address] Phone Care Team Providers Care Battery Container Finishing Hand Name Role Phone Elpidio Serrato MD Primary Care Provider [phone] Encounter Details Date Type Department Care Team (Latest Contact Info) Description 08/24/2019 9:40 AM CDT Telemedicine [facility] Endocrinology Metabolism and Lipid [address] [facility] 13th [place] [address] [place] [address] Merna Bell MD [address] [facility] [address] [place], [place] [id number] 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, with long-term current use of insulin, unspecified laterality (CMS/HCC) (Primary Dx); Vitamin D deficiency; Acquired hypothyroidism Social History Tobacco Use Types Packs/Day Years Used Date Smoking Tobacco: Never Smokeless Tobacco: Never Comments Unknown Sex and Gender Information Value Date Recorded Sex Assigned at Not on file Legal Sex Female 3:59 AM TUBE MACHINE OPERATOR HELPER Gender Identity Female 05/13/2021 4:21 PM TUBE MACHINE OPERATOR HELPER Sexual Orientation Not on file documented as of this encounter Progress Notes * Merna Bell MD - 08/24/2019 9:40 AM CDT This was a telemedicine visit which utilized interactive audio and video technology. During the visit, I was located clinic and the patient was located home. The video session started at 9:45 and ended at 10:13. Isabelle Lutz is a 69 y.o. female who returns for follow up of Type 2 Diabetes, Hypertension and Hyperlipidemia. Her A1c at the last visit was 7.3%, which was the best in some time. She is taking??Lantus 48 units, Humalog 10-15 units with meals, occasionally missing occasional doses if her BG is <90 mg/dl pre-meal. She also takes metformin 500 mg BID, Victoza 1.8 daily. ??She is now using the Dexcom G6, which she finds very helpful, and has reduced the frequency of her fingerstick glucose tests. She uses it continuously, but uses the reader so download and view on Clarity is not possible. She has lows about 1X per week on the Dexcom that causes alarms. Her Dexcom is set to alarm at 80 m g/dl. She is tending to go up overnight, but her control during the day is better. By way of complications Isabelle Lutz reports background diabetic retinopathy She had laser to her right eye in May for glaucoma, not for diabetes. Follow-up showed improvement. She has mildly reduced kidney function, which is not new. Patient Active Problem List Diagnosis ??? Actinic keratosis ??? Type 2 diabetes mellitus (CMS/HCC) ??? Hyperlipidemia ??? Hypertension ??? Hypothyroidism ??? Knee pain ??? Nonproliferative diabetic retinopathy (CMS/HCC) ??? Obesity ??? Osteoarthritis of knee ??? [...] D) 50,000 unit capsule, TAKE ONE CAPSULE ONCE A WEEK, Disp: 12 capsule,Rfl: 3 ??? HUMALOG KWIKPEN INSULIN 100 unit/mL insulin pen, INJECT 10 UNITS SUBCUTANEOUSLY AT BREAKFAST, 8TO 12 UNITS AT LUNCH, AND 5 UNITS WITH SNACKS, Disp: 45 mL, Rfl: 3 ??? insulin glargine (LANTUS SOLOSTAR U-100 INSULIN) 100 unit/mL (3 mL) insulin pen, Inject 50 Units under the skin daily, Disp: 27 pen, Rfl: 3 ??? insulin lispro (HumaLOG KwikPen [...] daily, Disp: 90 tablet, Rfl: 3 ??? liraglutide (VICTOZA 3-CRISTIANE) 0.6 mg/0.1 mL (18 mg/3 mL) injection, Inject 1.8 mg under the skin daily Indications: type 2 diabetes mellitus, Disp: 27 mL, Rfl: 3 ??? metFORMIN (GLUCOPHAGE) 500 mg [...] mouth daily, Disp: 90 tablet, Rfl: 3 ROS: No new problems. See HPI. All other systems are negative. There were no vitals taken for this visit. Physical Exam Vitals reviewed: No exam. No results found for this or any previous visit (from the past 24 hour(s)). Chemistry Lab Results Component Value Date SODIUM 143 12/03/2016 POTASSIUM 4.2 12/03/2016 CHLORIDE 109 12/03/2016 CO2 22 03/31/2019 CO2 23 12/03/2016 ANIONGAP 11 12/03/2016 BUNSER 27 (H) 03/05/2017 BUNSER 28 (H) 12/03/2016 CREATININE 1.05 03/31/2019 CREATININE 0.88 12/03/2016 GLUCOSE 103 (H) 03/31/2019 GLUCOSE 130 12/03/2016 CALCIUM 9.8 03/31/2019 CALCIUM 9.5 12/03/2016 BILITOT 0.19 (L) 03/31/2019 PROTEIN 7.5 06/17/2016 ALBUMIN 4.5 03/31/2019 ALBUMIN 4.2 12/03/2016 GFRNAA 53.8 (L) 03/31/2019 ALKPHOS 76 03/31/2019 AST 18 03/31/2019 ALT 14 03/31/2019 PHOS 3.7 03/05/2017 PHOS 4.2 12/03/2016 MAGNESIUM 2.3 06/17/2016 Lab Results Component Value Date SODIUM 143 12/03/2016 POTASSIUM 4.2 12/03/2016 CHLORIDE 109 12/03/2016 CREATININE 1.05 03/31/2019 BUN 31 (H) 03/31/2019 CALCIUM 9.8 03/31/2019 PHOS 3.7 03/05/2017 ALBUMIN 4.5 03/31/2019 AST 18 03/31/2019 ALT 14 03/31/2019 ALKPHOS 76 03/31/2019 Lab Results Component Value Date MALBCRTRAT 15.7 12/03/2016 @CBC@ Lab Results Component Value Date TSH 2.62 03/31/2019 FREET4 1.39 12/09/2017 No results found for: CPEPTIDE Lab Results Component Value Date CHOL 189 03/31/2019 TRIG 186 (H) 03/31/2019 HDLC 50 03/31/2019 LDLDIRECT 102 03/31/2019 Type 2 diabetes mellitus (CMS/[facility]) Current doses: Lantus, 48 units Humalo - 15 units ac Scripts are up to date, and labs are OK for now. No changes to meds or insulin doses. Hypertension Pt has a BP cuff at home but cannot find it. Instructions are to locate it and check once in awhile. Vitamin D deficiency Continue vitamin D supplementation, may be important if you encounter COVID-19. Stay home but get some sun when it comes out. Merna Bell MD 08/24/2019 10:11 AM . documented in this encounter Miscellaneous Notes * Assessment & Plan Note - Merna Bell MD - 08/24/2019 10:10 AM CDT Associated Problem(s): Vitamin D deficiency Continue vitamin D supplementation, may be important if you encounter COVID-19. Stay home but get some sun when it comes out. * Assessment & Plan Note - Merna Bell MD - 08/24/2019 10:09 AM CDT Associated Problem(s): Hypertension Pt has a BP cuff at home but cannot find it. Instructions are to locate it and check once in awhile. * Assessment & Plan Note - Merna Bell MD - 08/24/2019 9:55 AM CDT Associated Problem(s): DM2 (diabetes mellitus, type 2) (HCC) Current doses: Lantus, 48 units Humalo - 15 units ac Scripts are up to date, and labs are OK for now. No changes to meds or insulin doses. 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
--- OUTSIDE RECORDS SUMMARY | 2024-04-29 14:12 | XMS_ITS | Encounter Summary ---
Author Organization [facility] Address [address] [place] [address] Phone Care Team Providers Care Vtc Technician Name Role Phone Elpidio Serrato MD Primary Care Provider Encounter Details Date Type Department Care Team (Late st Contact Info) Description 04/23/2019 9:40 AM FANCY PACKER Imaging Exam [facility] Ophthalmology [address] [facility] 6th [place] [phone] Primary open angle glaucoma (POAG) of both eyes, moderate stage Social History Tobacco Use Types Packs/Day Years Used Date Smoking Tobacco: Never Smokeless Tobacco: Never Comments Unknown Sex and Gender Information Value Date Recorded Sex Assigned at Not on file Legal Sex Female 3:59 AM FANCY PACKER Gender Identity Female 05/13/2021 4:21 PM FANCY PACKER Sexual Orientation Not on file documented as of this encounter Plan of Treatment Not on file documented as of this encounter Procedures Procedure Name Priority Date/Time Associated Diagnosis Comments OCT, OPTIC NERVE - OU - BOTH EYES Routine 04/23/2019 10:10 AM FANCY PACKER Primary open angle glaucoma (POAG) of both eyes, moderate stage FORREST VISUAL FIELD - OU - BOTH EYES Routine 04/23/2019 10:10 AM FANCY PACKER Primary open angle glaucoma (POAG) of both eyes, moderate stage documented in this encounter Results * OCT, Optic Nerve - OU - Both Eyes (04/23/2019 10:10 AM FANCY PACKER) RNFL OS 64 micrometers RNFL OD 64 micrometers Anatomical Region Laterality Modality Head Optical Coherenc e Tomography Narrative 04/23/2019 10:40 AM FANCY PACKER Right Eye Reliability was good. Temporal thickness was normal. Superior thickness was normal. Nasal thickness was normal. Inferior thickness was showing abnormal thinning. Average RNFL thickness 64 micrometers. Left Eye Reliability was good. Temporal thickness was normal. Superior thickness was normal. Nasal thickness was normal. Inferior thickness was showing abnormal thinning. Average RNFL thickness 64 micrometers. Notes Baseline optic nerve OCT. Niranjan Thomas MD OPHTH TOMOGRAPHY Final Result * Forrest Visual Field - OU - Both Eyes (04/23/2019 10:10 AM FANCY PACKER) Mean Deviation OS -1.79 dB Mean Deviation OD -3.11 dB Pattern Deviation OS 3.59 dB Pattern Deviation OD 7.40 dB Anatomical Region Laterality Modality Head Visual Field Narrative 04/23/2019 10:38 AM FANCY PACKER Right Eye Fixation was good. Cooperation was good. Reliability was good. Progression has been stable. Foveal threshold was normal. Findings include superior nasal step defect. Mean Deviation was -3.11 dB. Pattern Deviation was 7.40 dB. Left Eye Fixation was good. Cooperation was good. Reliability was good. Progression has been stable. Foveal threshold was normal. Findings include superior arcuate defect. Mean Deviation was -1.79 dB. Pattern Deviation was 3.59 dB. Notes Vann are stable compared to May, but worse than 3 years ago. Niranjan Thomas MD OPH VISUAL FIELD Edited Res ult - Final documented in this encounter Visit Diagnoses Diagnosis Primary open angle glaucoma (POAG) of both eyes, moderate stage documented in this encounter Care Teams Vtc Technician Relationship Specialty Start Date End Date Elpidio Serrato MD PCP - General Internal Medicine 06/09/18 documented as of this encounter
--- OUTSIDE RECORDS SUMMARY | 2024-04-29 14:12 | XMS_ITS | Encounter Summary ---
Author Organization [facility] Address [address] [place] [address] Phone Care Team Providers Care Teacher Preschool Name Role Phone Elpidio Serrato MD Primary Care Provider [phone] Reason for Referral * Procedure (Routine) - Closed Specialty Diagnoses / Procedures Referred By Constantino alvarado Referred To Contact Diagnoses Primary open angle glaucoma (POAG) of both eyes, moderate stage Procedures Laser Trabeculoplasty Selective - OD - Right Eye Niranjan Thomas MD [address] [address] Phone: tel: fax: [facility] (All Locations) Referral ID Status Reason Start Date Expiration Date Visits Re quested Visits Authorized [id number] Closed 04/23/2019 11/01/2020 1 1 Y PLAN DEMONSTRATOR Encounter Details Date Type Department Care Team (Late st Contact Info) Description 04/23/2019 10:30 AM PARTY PLAN DEMONSTRATOR Office Visit [facility] Ophthalmology [address] [place] [address] [place] [address] Niranjan Thomas MD [address] [address] Primary open angle glaucoma (POAG) of both eyes, moderate stage (Primary Dx); Nuclear sclerotic cataract of both eyes Social History Tobacco Use Types Packs/Day Years Used Date Smoking Tobacco: Never Smokeless Tobacco: Never Comments Unknown Sex and Gender Information Value Date Recorded Sex Assigned at Not on file Legal Sex Female 3:59 AM PARTY PLAN DEMONSTRATOR Gender Identity Female 05/13/2021 4:21 PM PARTY PLAN DEMONSTRATOR Sexual Orientation Not on file documented as of this encounter Patient Instructions * Patient Instructions* Niranjan Thomas MD - 04/23/2019 10:30 AM PARTY PLAN DEMONSTRATOR Dilation instructions Please refer to your Dilating Eyedrops brochure for instructions regarding dilation. Y PLAN DEMONSTRATOR documented in this encounter Ordered Prescriptions Prescription Sig Dispense Quantity Refills Last Filled Start Date End Date latanoprost (XALATAN) 0.005 % ophthalmic solutionIndication s:Primary open angle glaucoma (POAG) of both eyes, moderate stage Administer 1 drop into both eyes nightly 7.5 mL 11 04/23/2019 1 latanoprost (XALATAN) 0.005 % ophthalmic solution Administer 1 drop into both eyes nightly 7.5 mL 3 04/23/2019 9 brimonidine-timolo l (COMBIGAN) 0.2-0.5 % ophthalmic solutionIndication s:Primary open angle glaucoma (POAG) of both eyes, moderate stage Administer 1 drop into both eyes 2 (two) times a day 10 mL 11 04/23/2019 1 documented in this encounter Progress Notes * Niranjan Thomas MD - 04/23/2019 10:30 AM CST ASSESSMENT/ORDERS/PROCEDURES PERFORMED TODAY Assessment/Plan Diagnoses and all orders for this visit: Primary open angle glaucoma (POAG) of both eyes, moderate stage (Primary) Assessment & Plan: Patient returns for 6 months follow-up with dilation, vann, and OCT photo. intraocular pressures both eyes today are lower(22/25), but still above goal. The vann are stablecompared to May 2018, but worse than 3 years ago. Believe pressures need to be in mid-teens. Recommend SLT both eyes, starting with right eye. Okay to wait until May. A1C was around 7% at last visit on March 31. RTC for next available SLT right eye. Drops: Combigan BID OU Latanoprost QHS OD Orders: - Forrest Visual Field - OU - Both Eyes; Standing - OCT, Optic Nerve - OU - Both Eyes; Standing - brimonidine-timolol (COMBIGAN) 0.2-0.5 % ophthalmic solution; Administer 1 drop into both eyes 2 (two) times a day - latanoprost (XALATAN) 0.005 % ophthalmic solution; Administer 1 drop into both eyes nightly - Laser Trabeculoplasty Selective - OD - Right Eye; Future Nuclear sclerotic cataract of both eyes Assessment & Plan: HALLEY Joseph scribing for and in the presence of Niranjan Thomas MD OCT, Optic Nerve - OU - Both Eyes Component Value Flag Ref Range Units Status RNFL OS 64 micrometers Final RNFL OD 64 micrometers Final Right Eye Reliability was good. Temporal thickness was normal. Superior thickness was normal. Nasal thicknesswas normal. Inferior thickness was showing abnormal thinning. Average RNFL thickness 64 micrometers. Left Eye Reliability was good. Temporal thickness was normal. Superior thickness was normal. Nasal thicknesswas normal. Inferior thickness was showing abnormal thinning. Average RNFL thickness 64 micrometers. Notes Baseline optic nerve OCT. Forrest Visual Field - OU - Both Eyes Component Value Flag Ref Range Units Status Mean Deviation OS -1.79 dB Final Mean Deviation OD -3.11 dB Final Pattern Deviation OS 3.59 dB Final Pattern Deviation OD 7.40 dB Final Right Eye Fixation was good. Cooperation was [...] arcuate defect. Mean Deviation was -1.79 dB. PatternDeviation was 3.59 dB. Notes Vann are stable compared to May, but worse than 3 years ago. I have examined the patient and agree with the resident/fellow's findings and plan as documented. Niranjan Thomas MD PLAN FOR NEXT VISIT Return in about 1 month (around 05/24/2019) for SLT Laser. Y PLAN DEMONSTRATOR documented in this encounter Miscellaneous Notes * Assessment & Plan Note - Niranjan Thomas MD - 04/23/2019 10:45 AM PARTY PLAN DEMONSTRATOR Associated Problem(s): Pseudophakia of both eyes HALLEY Joseph scribing for and in the presence of Niranjan Thomas MD Y PLAN DEMONSTRATOR * Assessment & Plan Note - Michelle Soni Ruth - 04/23/2019 10:35 AM CSTAssociated Problem(s): Primary open angle glaucoma (POAG) of both eyes, moderate stage Patient returns for 6 months follow-up with dilation, vann, and OCT photo. intraocular pressures both eyes today are lower(22/25), but still above goal. The vann are stablecompared to May 2018, but worse than 3 years ago. Believe pressures need to be in mid-teens. Recommend SLT both eyes, starting with right eye. Okay to wait until May. A1C was around 7% at last visit on March 31. RTC for next available SLT right eye. Drops: Combigan BID OU Latanoprost QHS OD Y PLAN DEMONSTRATOR Y PLAN DEMONSTRATOR Y PLAN DEMONSTRATOR Y PLAN DEMONSTRATOR Y PLAN DEMONSTRATOR documented in this encounter Plan of Treatment Not on file documented as of this encounter Results * Laser Trabeculoplasty Selective - OD - Right Eye (05/28/2019 11:14 AM PARTY PLAN DEMONSTRATOR) Anatomical Region Laterality Modality Head Laser Room Narrative 05/28/2019 11:14 AM PARTY PLAN DEMONSTRATOR Time Out Informed consent was obtained after all risks, benefits and alternatives were explained to the patient. The patient understood, agreed and wished to proceed. Timeout was completed verifing the patient, procedure, laterality and allergies. Anesthesia Topical anesthesia was used. Anesthesia medications included Iopidine 0.5%, Proparacaine. Pre-laser IOP The pre-laser IOP was 17 at 12:00 AM. Laser Information Laser power was 49. Total spots was 80. Post-laser IOP The post-laser IOP was 17 at 12:00 AM. Post-op The patient tolerated the procedure well. There were no complications. The attending physician was present for the entire procedure. Notes Ketorolac sent into patient's pharmacy Niranjan Thomas MD OPHTH CLINIC PROCEDURES Final Result documented in this encounter Visit Diagnoses Diagnosis Primary open angle glaucoma (POAG) of both eyes, moderate stage- Primary Nuclear sclerotic cataract of both eyes Senile nuclear sclerosis Primary open angle glaucoma (POAG) of both eyes, moderate stage- Primary documented in this encounter Discontinued Medications Medication Sig Discontinue Reason Start Date End Da te timolol (TIMOPTIC) 0.5 % ophthalmic solution Administer 1 drop into both eyes every morning Therapy completed 09/01/2018 04/23/2019 latanoprost (XALATAN) 0.005 % ophthalmic solution ADMINISTER 1 DROP INTO BOTH EYES NIGHTLY. Reorder 04/06/2019 04/23/2019 latanoprost (XALATAN) 0.005 % ophthalmic solution Administer 1 drop into both eyes nightly 04/23/2019 04/23/2019 documented as of this encounter Eye Exam Visual Acuity (Snellen - Linear) Right eye Left eye Dist cc 20/25 20/30 +2 Tonometry (Applanation, 10:25 AM) Right eye Left eye Pressure 22 25 Strain at slit lamp. Pt has to scoot up to very edge of chair. Pupils Dark Light Shape React APD Right eye 3 2 Round Brisk None Left eye 3.5 2.5 Round Brisk None Visual Vann Right eye Left eye Full Restrictions Partial outer inferior nasal def iciency Extraocular Movement Right eye Left eye Full, Ortho Full, Ortho Neuro/Psych Oriented x3: Yes Mood/Affect: Normal Dilation Both eyes: 1.0% Mydriacyl @ 10:26 AM External Exam Right eye Left eye External Normal Normal Slit Lamp Exam Right eye Left eye Lids/Lashes Normal Normal Conjunctiva/Sclera White and quiet White and ketan et Cornea Clear Clear Anterior Chamber Deep and quiet, shal low ou peripherally Deep and quiet Iris Round and reactive [...] Normal Normal Periphery Normal Normal Care Teams Teacher Preschool Relationship Specialty Start Date End Date Elpidio Serrato MD PCP - General Internal Medicine 06/09/18 documented as of this encounter
--- OUTSIDE RECORDS SUMMARY | 2024-04-29 14:12 | XMS_ITS | Encounter Summary ---
Author Organization [facility] Address [address] [place] [address] Phone Care Team Providers Care Bundling Machine Operator Name Role Phone Elpidio Serrato MD Primary Care Provider [phone] Encounter Details Date Type Department Care Team (Late st Contact Info) Description 12/04/2019 8:40 AM CDT Office Visit [facility] Ophthalmology [address] [facility] 6th [address], [address] [facility] [place] [address] Pratima Perez, OD [address] [place] [address] Nuclear sclerotic cataract of both eyes (Primary Dx); Primary open angle glaucoma (POAG) of both eyes, moderate stage; Type 2 diabetes mellitus (CMS/HCC) Social History Tobacco Use Types Packs/Day Years Used Date Smoking Tobacco: Never Smokeless Tobacco: Never Comments Unknown Sex and Gender Information Value Date Recorded Sex Assigned at Not on file Legal Sex Female 3:59 AM HOSPITAL LIBRARIAN Gender Identity Female 05/13/2021 4:21 PM HOSPITAL LIBRARIAN Sexual Orientation Not on file documented as of this encounter Patient Instructions * Patient Instructions* Pratima Perez, JIAN - 12/04/2019 8:40 AM CDT documented in this encounter Progress Notes * Pratima Perez, OD - 12/04/2019 8:40 AM CDT Assessment/Plan Diagnoses and all orders for this visit: Nuclear sclerotic cataract of both eyes (Primary) Assessment & Plan: Pt ed. Defer cataract extraction (CE) until signs/sx indicate. Primary open angle glaucoma (POAG) of both eyes, moderate stage Assessment & Plan: IOPs > target for the visual field (VF); incomplete IA right eye (OD), and paracentral superior scotoma OS-status post (s/p) SLT right eye (OD) 06/2019. Refer to Glaucoma clinic for evaluation - [email or web address] also be a good MIGS candidate. CPM. F/u Glc 2 weeks. Type 2 diabetes mellitus ([facility]/HCC) Assessment & Plan: Last DFE 04/2019.Stressed BG control. Return approx 04/2020 for DFE Lab Results Component Value Date HGBA1C 7.3 03/31/2019 documented in this encounter Miscellaneous Notes * Assessment & Plan Note - Pratima Perez, OD - 12/05/2019 7:49 PM CDT Associated Problem(s): DM2 (diabetes mellitus, type 2) ([facility]) Last DFE 04/2019.Stressed BG control. Return approx 04/2020 for DFE Lab Results Component Value Date HGBA1C 7.3 03/31/2019 * Assessment & Plan Note - Pratima Perez, OD - 12/05/2019 7:41 PM CDT Associated Problem(s): Pseudophakia of both eyes Pt ed. Defer cataract extraction (CE) until signs/sx indicate. * Assessment & Plan Note - Pratima Perez, OD - 12/05/2019 7:02 PM CDT Associated Problem(s): Primary open angle glaucoma (POAG) of both eyes, moderate stage IOPs > target for the visual field (VF); incomplete IA right eye (OD), and paracentral superior scotoma OS-status post (s/p) SLT right eye (OD) 06/2019. Refer to Glaucoma clinic for evaluation - [email or web address] also be a good MIGS candidate. CPM. F/u Glc 2 weeks. documented in this encounter Plan of Treatment Not on file documented as of this encounter Visit Diagnoses Diagnosis Nuclear sclerotic cataract of both eyes- Primary Senile nuclear sclerosis Primary open angle glaucoma (POAG) of both eyes, moderate stage Type 2 diabetes mellitus (HCC) documented in this encounter Eye Exam Visual Acuity (Snellen - Linear) Right eye Left eye Dist cc 20/20 20/25 Tonometry (Applanation, 12:01 PM) Right eye Left eye Pressure 23 24 Pupils Pupils React APD Right eye PERRL + - Left eye PERRL + - Visual Vann Right eye Left eye Restrictions Partial inner superi or temporal deficiency Total inferior nasal deficiency Extraocular Movement Right eye Left [...] 0.85 0.85-9 Macula Normal Normal Care Teams Bundling Machine Operator Relationship Specialty Start Date End Date Elpidio Serrato MD PCP - General Internal Medicine 06/09/18 documented as of this encounter
--- OUTSIDE RECORDS SUMMARY | 2024-04-29 14:12 | XMS_ITS | Encounter Summary ---
Author Organization [facility] Address [address] [place] [address] Phone Care Team Providers Care Bellmaker Name Role Phone Elpidio Serrato MD Primary Care Provider [phone] Reason for Visit * Diagnostic Lab (Routine) - Closed Specialty Diagnoses / Procedures Referred By Constantino alvarado Referred To Contact Lab Diagnoses Z01.812 Procedures SPECIMEN COLLECTION Merna Bell MD Phone: tel: fax: [facility] Endocrinology Metabolism and Lipid [address]th [place] [address] [place] [address] Phone: tel: fax: Referral ID Status Reason Start Date Expiration Date Visits Re quested Visits Authorized [id number] Closed 06/16/2018 12/26/2019 99 99 Encounter Details Date Type Department Care Team (Late st Contact Info) Description 06/16/2018 11:45 AM ADULT NEUROPSYCHOLOGIST Lab 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, with long-term current use of insulin, unspecified laterality (CMS/HCC); Acquired hypothyroidism Social History Tobacco Use Types Packs/Day Years Used Date Smoking Tobacco: Never Smokeless Tobacco: Never Comments Unknown Sex and Gender Information Value Date Recorded Sex Assigned at Not on file Legal Sex Female 3:59 AM ADULT NEUROPSYCHOLOGIST Gender Identity Female 05/13/2021 4:21 PM ADULT NEUROPSYCHOLOGIST Sexual Orientation Not on file documented as of this encounter Plan of Treatment Not on file documented as of this encounter Visit Diagnoses Diagnosis 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
--- OUTSIDE RECORDS SUMMARY | 2024-04-29 14:12 | XMS_ITS | Encounter Summary ---
Author Organization [facility] Address [address] [place] [address] Phone Care Team Providers Care Rn X Ray Name Role Phone Elpidio Serrato MD Primary Care Provider [phone] Encounter Details Date Type Department Care Team (Late st Contact Info) Description 04/16/2019 Telephone [facility] Endocrinology Metabolism and Lipid [address] [facility] [address]th [place] [address] [place] [address] Merna Bell MD [address] [place] [address] Social History Tobacco Use Types Packs/Day Years Used Date Smoking Tobacco: Never Smokeless Tobacco: Never Comments Unknown Sex and Gender Information Value Date Recorded Sex Assigned at Not on file Legal Sex Female 3:59 AM BEHAVIORAL CONSULTANT Gender Identity Female 05/13/2021 4:21 PM BEHAVIORAL CONSULTANT Sexual Orientation Not on file documented as of this encounter Miscellaneous Notes * Telephone Encounter - Gerson Cuadra CMA - 04/21/2019 8:53 AM BEHAVIORAL CONSULTANT The pharmacy states it won't be sent again. They see the other medication and it has been filled VIORAL CONSULTANT * Telephone Encounter - Merna Bell MD - 04/20/2019 6:30 PM CST I ordered olmesartan/HCTZ for Isabelle on 04/11. I called her, and she had it in her possession but did not realize that it was the appropriate substitute for losartan/HCTZ. VIORAL CONSULTANT * Telephone Encounter - Gerson Cuadra CMA - 04/16/2019 1:44 PM BEHAVIORAL CONSULTANT [facility] [phone] Clarification: Need alternative for Losartan-HCTZ 100-25 Mg tab VIORAL CONSULTANT documented in this encounter Plan of Treatment Not on file documented as of this encounter Visit Diagnoses Not on filedocumented in this encounter Care Teams Rn X Ray Relationship Specialty Start Date End Date Elpidio Serrato MD PCP - General Internal Medicine 06/09/18 documented as of this encounter
--- OUTSIDE RECORDS SUMMARY | 2024-04-29 14:12 | XMS_ITS | Encounter Summary ---
Author Organization [facility] Address [address] [place] [address] Care Team Providers Care Senior Sharepoint Developer Name Role Phone Elpidio Serrato MD Primary Care Provider [phone] Reason for Referral * Diagnostic Imaging (Routine) - Closed Specialty Diagnoses / Procedures Referred By Constantino alvarado Referred To Contact Diagnoses Clavicle enlargement Procedures XR Clavicle Right Complete Merna Bell MD Phone: tel: fax: [address] [address] Referral ID Status Reason Start Date Expiration Date Visits Re quested Visits Authorized [id number] Closed 06/16/2018 12/26/2019 1 1 ORIOGRAPHY PROFESSOR Reason for Visit * Diagnostic Imaging (Routine) - Closed Specialty Diagnoses / Procedures Referred By Constantino alvarado Referred To Contact Diagnoses Clavicle enlargement Procedures XR Clavicle Right Complete Merna Bell MD Phone: tel: fax: [address] [address] Referral ID Status Reason Start Date Expiration Date Visits Re quested Visits Authorized Closed 06/16/2018 12/26/2019 1 1 Encounter Details Date Type Department Care Team (Latest Contact Info) Description 06/16/2018 11:27 AM HISTORIOGRAPHY PROFESSOR - 06/16/2018 11:59 PM HISTORIOGRAPHY PROFESSOR Hospital Encounter [facility] [address] [place] [address] Merna Bell MD [address] [facility] [address] [place] [address] Clavicle enlargement Discharge Disposition: Discharge to home or self care Social History Tobacco Use Types Packs/Day Years Used Date Smoking Tobacco: Never Smokeless Tobacco: Never Comments Unknown Sex and Gender Information Value Date Recorded Sex Assigned at Not on file Legal Sex Female 3:59 AM HISTORIOGRAPHY PROFESSOR Gender Identity Female 05/13/2021 4:21 PM HISTORIOGRAPHY PROFESSOR Sexual Orientation Not on file documented as of this encounter Medications at Time of Discharge blood glucose diagnostic (FREESTYLE LITE STRIPS) strip by in vitro route. 02/02/20 09 019 celecoxib (CeleBREX) 200 mg capsule TAKE 1 CAPSULE DAILY. 90 capsule 3 05/20/19 19 020 ergocalciferol (VITAMIN D) 50,000 unit capsule TAKE ONE CAPSULE ONCE A WEEK 08/08/19 11 019 glimepiride (AMARYL) 4 mg tablet TAKE 1 TABLET BY MOUTH TWICE A DAY 180 tablet 02/14/20 18 019 HUMALOG KWIKPEN INSULIN 100 unit/mL insulin pen FOR DIRECTIONS ON HOW TO TAKE THIS MEDICINE, READ THE ENCLOSED MEDICATION INFORMATION FORM 45 mL 2 07/04/19 19 019 HUMALOG KWIKPEN INSULIN 100 unit/mL insulin pen FOR DIRECTIONS ON HOW TO TAKE THIS MEDICINE, READ THE ENCLOSED MEDICATION INFORMATION FORM 45 mL 2 05/20/19 19 019 insulin syringe needleless (BD INSULIN SYRINGE SLIP TIP) 1 mL syringe USE DAILY W/LANTUS 06/14 01/30 16 022 LANTUS SOLOSTAR U-100 INSULIN 100 unit/mL (3 mL) insulin pen INJECT 45 UNITS SUBCUTANEOUSLY DAILY 45 mL 2 05/07/20 18 019 latanoprost (XALATAN) 0.005 % ophthalmic solution Administer 1 drop into both eyes nightly. 2.5 mL 11 06/09/19 19 019 levothyroxine (SYNTHROID, LEVOTHROID) 88 mcg tablet TAKE 1 TABLET BY MOUTH EVERY DAY 90 tablet 02/13/20 18 019 losartan-hydrochloro thiazide (HYZAAR) 100-25 mg per tablet Take 1 tablet by mouth daily. 90 tablet 1 04/14/20 18 019 metFORMIN (GLUCOPHAGE) 500 mg tablet Take one tablet by mouth twice a day 180 tablet 3 05/18/19 19 019 pen needle, diabetic (BD ULTRA-FINE WENDY PEN NEEDLE) 32 gauge x 5/32 needleIndications:Ty pe 2 diabetes mellitus with 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, with long-term current use of insulin, unspecified laterality (HCC) Use 4X daily 300 each 3 06/16/19 19 023 simvastatin (ZOCOR) 40 mg tablet TAKE 1 TABLET BY MOUTH EVERY DAY 90 tablet 3 04/12/20 18 019 traMADol (ULTRAM) 50 mg tablet 06/12/19 19 019 VICTOZA 3-CRISTIANE 0.6 mg/0.1 mL (18 mg/3 mL) injectionIndications :type 2 diabetes mellitus INJECT 1.8MG SUBCUTANEOUSLYDAILY 27 mL 2 05/07/20 18 019 documented as of this encounter Discharge Disposition Disposition Code Departure Means Destination Discharge to home or self care documented in this encounter Plan of Treatment Not on file documented as of this encounter Procedures Procedure Name Priority Date/Time Associated Diagnosis Comments XR CLAVICLE RIGHT COMPLETE Schedule Routine, Read Routine (OP Routine) 06/16/2018 11:56 AM HISTORIOGRAPHY PROFESSOR Clavicle enlargement documented in this encounter Results * XR Clavicle Right Complete (06/16/2018 11:56 AM HISTORIOGRAPHY PROFESSOR) Anatomical Region Laterality Modality Clavicle, Chest Right Computed Radiogr aphy 06/16/2018 11:5 8 AM HISTORIOGRAPHY PROFESSOR Impressions 06/16/2018 11:58 AM HISTORIOGRAPHY PROFESSOR 1. 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 Electronically signed by: Niranjan Phipps M.D. Narrative 06/16/2018 11:58 AM HISTORIOGRAPHY PROFESSOR EXAMINATION: 1. ??Right clavicle complete HISTORY: ??Right acromioclavicular joint osteoarthritis FINDINGS: 2 views submitted with comparison June 17, 2016. There are no acute fractures. There are no suspicious osseous lytic or blastic lesions. There is moderate right acromioclavicular joint osteoarthritis with superior projecting osteophytes. Procedure Note Niranjan Phipps MD - 06/16/2018 EXAMINATION: 1. Right clavicle complete HISTORY: Right acromioclavicular joint osteoarthritis FINDINGS: 2 views submitted with comparison June 17, 2016. There are no acute fractures. There are no suspicious osseous lytic or blastic lesions. There is moderate right acromioclavicular joint osteoarthritis with superior projecting osteophytes. IMPRESSION: 1. 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 Electronically signed by: Niranjan Phipps M.D. Merna Bell MD IMG XR PROCEDURES Final Resul t documented in this encounter Visit Diagnoses Diagnosis Clavicle enlargement Other disorders of bone and cartilage documented in this encounter Care Teams Senior Sharepoint Developer Relationship Specialty Start Date End Date Elpidio Serrato MD PCP - General Internal Medicine 06/09/18 documented as of this encounter
--- OUTSIDE RECORDS SUMMARY | 2024-04-29 14:12 | XMS_ITS | Encounter Summary ---
Author Organization [facility] Address [address] [place] [address] Phone Care Team Providers Care Hospital Librarian Name Role Phone Elpidio Serrato MD Primary Care Provider [phone] Encounter Details Date Type Department Care Team (Late st Contact Info) Description 04/20/2019 Orders Only [facility] Endocrinology Metabolism and Lipid [address] [facility] Advanced Medicine 5th [place] [address] [place] [phone] Merna Bell MD [address] [facility] [address] [place] [address] Social History Tobacco Use Types Packs/Day Years Used Date Smoking Tobacco: Never Smokeless Tobacco: Never Comments Unknown Sex and Gender Information Value Date Recorded Sex Assigned at Not on file Legal Sex Female 3:59 AM SWITCH ENGINEER Gender Identity Female 05/13/2021 4:21 PM SWITCH ENGINEER Sexual Orientation Not on file documented as of this encounter Progress Notes * Merna Bell MD - 04/20/2019 6:21 PM CST I spoke to Isabelle re: Losartan/HCTZ. She had olmesartan/HCT in her possession, did not realize that it was the appropriate substitute. Problem solved for now. CH ENGINEER documented in this encounter Plan of Treatment Not on file documented as of this encounter Visit Diagnoses Not on filedocumented in this encounter Care Teams Hospital Librarian Relationship Specialty Start Date End Date Elpidio Serrato MD PCP - General Internal Medicine 06/09/18 documented as of this encounter
--- OUTSIDE RECORDS SUMMARY | 2024-04-29 14:12 | XMS_ITS | Encounter Summary ---
Author Organization [facility] Address [address] [place] [address] Phone Care Team Providers Care Fire Extinguisher Mechanic Name Role Phone Elpidio Serrato MD Primary Care Provider [phone] Reason for Visit * Reason Onset Date Comments Noemi 12/31/2019 Encounter Details Date Type Department Care Team (Late st Contact Info) Description 12/31/2019 Telephone [facility] Endocrinology Metabolism and Lipid [address] [facility] Advanced Medicine 13th [place] [address] [place] [address] Aide Wolfe CMA Solara Social History Tobacco Use Types Packs/Day Years Used Date Smoking Tobacco: Never Smokeless Tobacco: Never Comments Unknown Sex and Gender Information Value Date Recorded Sex Assigned at Not on file Legal Sex Female 3:59 AM MINE ENVIRONMENTAL ENGINEER Gender Identity Female 05/13/2021 4:21 PM MINE ENVIRONMENTAL ENGINEER Sexual Orientation Not on file documented as of this encounter Miscellaneous Notes * Telephone Encounter - Aide Wolfe CMA - 12/31/2019 2:46 PM CDT DWO for medical supplies sent to Noemi at [phone]. documented in this encounter Plan of Treatment Not on file documented as of this encounter Visit Diagnoses Not on filedocumented in this encounter Care Teams Fire Extinguisher Mechanic Relationship Specialty Start Date End Date Elpidio Serrato MD PCP - General Internal Medicine 06/09/18 documented as of this encounter
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
--- OUTSIDE RECORDS SUMMARY | 2024-04-29 14:12 | XMS_ITS | Encounter Summary ---
Author Organization [facility] Address [address] [place] [address] Phone Care Team Providers Care Speech Language Pathology Assistant Name Role Phone Elpidio Serrato MD Primary Care Provider [phone] Encounter Details Date Type Department Care Team (Latest Contact Info) Description 04/11/2019 Orders Only [facility] Endocrinology Metabolism and Lipid [address] [facility] 5th [place] [address] [place] [address] Merna Bell MD [address] [facility] [address] [place], [place] [id number] 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, with long-term current use of insulin, unspecified laterality (CMS/HCC) (Primary Dx); Hypertension, unspecified type Social History Tobacco Use Types Packs/Day Years Used Date Smoking Tobacco: Never Smokeless Tobacco: Never Comments Unknown Sex and Gender Information Value Date Recorded Sex Assigned at Not on file Legal Sex Female 3:59 AM STAMPER BLOCKER Gender Identity Female 05/13/2021 4:21 PM STAMPER BLOCKER Sexual Orientation Not on file documented as of this encounter Ordered Prescriptions Prescription Sig Dispense Quantity Refills Last Filled Start Date End Date olmesartan-hydrochloro thiazide (BENICAR HCT) 40-12.5 mg per tabletIndications: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
--- OUTSIDE RECORDS SUMMARY | 2024-04-29 14:12 | XMS_ITS | Encounter Summary ---
Author Organization [facility] Facility Care Team Providers Care Hand Cloth Folder Name Role Phone Elpidio Serrato MD Primary Care Provider [phone] Encounter Details Date Type Department Care Team (Latest Contact Info) Description 07/03/2019 Travel Social History Tobacco Use Types Packs/Day Years Used Date Smoking Tobacco: Never Smokeless Tobacco: Never Comments Unknown Sex and Gender Information Value Date Recorded Sex Assigned at Not on file Legal Sex Female 3:59 AM CMM INSPECTOR Gender Identity Female 05/13/2021 4:21 PM CMM INSPECTOR Sexual Orientation Not on file documented as of this encounter Plan of Treatment Not on file documented as of this encounter Visit Diagnoses Not on filedocumented in this encounter Care Teams Hand Cloth Folder Relationship Specialty Start Date End Date Elpidio Serrato MD PCP - General Internal Medicine 06/09/18 documented as of this encounter
--- OUTSIDE RECORDS SUMMARY | 2024-04-29 14:12 | XMS_ITS | Encounter Summary ---
Author Organization [facility] Address [address] [place] [address] Phone Care Team Providers Care Photographic Hand Developer Name Role Phone Elpidio Serrato MD Primary Care Provider [phone] Reason for Visit * Reason Onset Date Comments Solara 12/31/2019 SWO Encounter Details Date Type Department Care Team (Late st Contact Info) Description 12/31/[address] [facility] Endocrinology Metabolism and Lipid [address] [facility] [address] [place] [address] [place] [address] Gerson Cuadra CMA Solara (MILEO) Social History Tobacco Use Types Packs/Day Years Used Date Smoking Tobacco: Never Smokeless Tobacco: Never Comments Unknown Sex and Gender Information Value Date Recorded Sex Assigned at Not on file Legal Sex Female 3:59 AM PERSONAL DEVELOPMENT EDUCATOR Gender Identity Female 05/13/2021 4:21 PM PERSONAL DEVELOPMENT EDUCATOR Sexual Orientation Not on file documented as of this encounter Miscellaneous Notes * Telephone Encounter - Gerson Cuadra CMA - 12/31/2019 12:56 PM CDT SWO and chart note in providers box awaiting signature documented in this encounter Plan of Treatment Not on file documented as of this encounter Visit Diagnoses Not on filedocumented in this encounter Care Teams Photographic Hand Developer Relationship Specialty Start Date End Date Elpidio Serrato MD PCP - General Internal Medicine 06/09/18 documented as of this encounter
--- OUTSIDE RECORDS SUMMARY | 2024-04-29 14:12 | XMS_ITS | Encounter Summary ---
Author Organization [facility] Address [address] [place] [address] Phone Care Team Providers Care Firer Tunnel Kiln Name Role Phone Elpidio Serrato MD Primary Care Provider [phone] Encounter Details Date Type Department Care Team (Latest Contact Info) Description 10/17/2018 1:00 PM CDT Office Visit [facility] Ophthalmology 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, with long-term current use of insulin, unspecified laterality (CMS/HCC) Social History Tobacco Use Types Packs/Day Years Used Date Smoking Tobacco: Never Smokeless Tobacco: Never Comments Unknown Sex and Gender Information Value Date Recorded Sex Assigned at Not on file Legal Sex 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 Sue patient returning to [place] today for 6 week IOP check. Pressures [...] and plan as documented. Niranjan Thomas MD Nuclear sclerotic cataract of both eyes Assessment & Plan: Not visually significant. Do not recommend surgery at this time. Continue to monitor. 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 No DFE today. PLAN FOR NEXT VISIT No follow-ups on file.ASSESSMENT/ORDERS/PROCEDURES PERFORMED TODAY Assessment/Plan Diagnoses and all orders for this visit: Primary open angle glaucoma (POAG) of both eyes, mild stage (Primary) Assessment & Plan: Dr. Sue patient returning to [place] today for 6 week IOP check. Pressures [...] and plan as documented. Niranjan Thomas MD Nuclear sclerotic cataract of both eyes Assessment & Plan: Not visually significant. Do not recommend surgery at this time. Continue to monitor. 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 No DFE today. PLAN FOR NEXT VISIT No follow-ups on file. documented in this encounter Miscellaneous Notes * Assessment & Plan Note - Michelle Soni Ruth - 10/15/2018 1:02 PM CDTAssociated Problem(s): Pseudophakia of both eyes Not visually significant. Do not recommend surgery at this time. Continue to monitor. * Assessment & Plan Note - Michelle Soni Ruth - 10/15/2018 1:01 PM CDTAssociated Problem(s): DM2 (diabetes mellitus, type 2) ([facility]) Stressed tight BS control. No DFE today. * Assessment & Plan Note - ZachariahMichelle Ruth - 10/15/2018 12:59 PM CDTAssociated Problem(s): Primary open angle glaucoma (POAG) of both eyes, moderate stage Dr. Sue patient returning to me today [...] and plan as documented. 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, with long-term current use of insulin, unspecified laterality (HCC) documented in this encounter Eye Exam Visual Acuity (Snellen - Linear) Right eye Left eye Dist cc 20/25 -2 20/25 Correction: Glasses Tonometry (Applanation, 1:09 PM) Right eye Left eye Pressure 22 23 Gonioscopy Right eye Left eye Temporal Grade 2 angle, 1 + Pig Grade 2 a ngle, 1 + Pig Nasal Grade 2 angle, 1 + Pig Grade 2 a ngle, 1 + Pig Superior Grade 2 angle, 1 + Pig Grade 2 a ngle, 1 + Pig Inferior Grade 2 angle, 1 + Pig Grade 2 a ngle, 1 + Pig Pupils Dark Light Shape React APD Right eye 3 2 Round + - Left eye 3 2 Round + - Visual Vann Right eye Left eye Full Restrictions Partial outer inferior nasal def iciency Extraocular Movement Right eye Left eye Full [...] and reactive Round and newton ctive Lens +2-3 Nuclear scleros is, cortical spokes 2+ Nuclear sclerosis, cortical spokes Anterior Vitreous Normal Normal Care Teams Firer Tunnel Kiln Relationship Specialty Start Date End Date Elpidio Serrato MD PCP - General Internal Medicine 06/09/18 documented as of this encounter
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
--- OUTSIDE RECORDS SUMMARY | 2024-04-29 14:12 | XMS_ITS | Encounter Summary ---
Author Organization [facility] Address [address] [place] [address] Phone Care Team Providers Care Commodity Merchant Name Role Phone Elpidio Serrato MD Primary Care Provider [phone] Reason for Referral * (Routine) - Closed Specialty Diagnoses / Procedures Referred By Constantino alvarado Referred To Contact Diagnoses Primary open angle glaucoma (POAG) of both eyes, moderate stage Procedures Laser Trabeculoplasty Selective - OD - Right Eye Niranjan Thomas MD [address] [place] [address] Phone: tel: fax: [facility] (All Locations) Referral ID Status Reason Start Date Expiration Date Visits Re quested Visits Authorized [id number] Closed 05/28/2019 12/06/2020 1 1 BING ASSEMBLER Reason for Visit * Procedure (Routine) - Closed Specialty Diagnoses / Procedures Referred By Constantino alvarado Referred To Contact Diagnoses Primary open angle glaucoma (POAG) of both eyes, moderate stage Procedures Laser Trabeculoplasty Selective - [place] - [place] [address] [place] [address] Phone: tel: fax: [facility] (All Locations) Referral ID Status Reason Start Date Expiration Date Visits Re quested Visits Authorized [id number] Closed 04/23/2019 11/01/2020 1 1 Encounter Details Date Type Department Care Team (Late st Contact Info) Description 05/28/2019 8:15 AM 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 Clinical Support [facility] Ophthalmology [address] [facility] [place] [id number] Niranjan Thomas MD [address] [facility] [address] [place] [address] Social History Tobacco Use Types Packs/Day Years Used Date Smoking Tobacco: Never Smokeless Tobacco: Never Comments Unknown Sex and Gender Information Value Date Recorded Sex Assigned at Not on file Legal Sex Female 3:59 AM 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 Gender Identity Female 05/13/2021 4:21 PM 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 Sexual Orientation Not on file documented as of this encounter Patient Instructions * Patient Instructions* Michelle Soni - 05/28/2019 8:15 AM 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 BING ASSEMBLER documented in this encounter Ordered Prescriptions Prescription Sig Dispense Quantity Refills Last Filled Start Date End Date ketorolac (ACULAR) 0.5 % ophthalmic solution Administer 1 drop into the right eye 4 (four) times a day for 4 days 5 mL 05/28/2019 0 documented in this encounter Plan of Treatment Not on file documented as of this encounter Procedures Procedure Name Priority Date/Time Associated Diagnosis Comments LASER TRABECULOPLASTY SELECTIVE - OD - RIGHT EYE Routine 05/28/2019 11:14 AM 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 Primary open angle glaucoma (POAG) of both eyes, moderate stage documented in this encounter Results * Laser Trabeculoplasty Selective - OD - Right Eye (05/28/2019 11:14 AM 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) Anatomical Region Laterality Modality Head Laser Room Narrative 05/28/2019 11:14 AM 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 Time Out Informed consent was obtained after [...] moderate stage- Primary documented in this encounter Orders Imaging Orders Without Results Count Last Order ed Date First Ordered Date LASER TRABECULOPLASTY SELECT SEDA - OD - RIGHT EYE 1 05/28/2019 documented in this encounter Care Teams Commodity Merchant Relationship Specialty Start Date End Date Elpidio Serrato MD PCP - General Internal Medicine 06/09/18 documented as of this encounter
--- OUTSIDE RECORDS SUMMARY | 2024-04-29 14:12 | XMS_ITS | Encounter Summary ---
Author Organization [facility] Address [address] [place] [address] Phone Care Team Providers Care Resource Forester Name Role Phone Elpidio Serrato MD Primary Care Provider [phone] Encounter Details Date Type Department Care Team (Late st Contact Info) Description 09/01/2018 10:15 AM CDT Office Visit [facility] Ophthalmology [address] [place] [address] [place] [phone] Kaushik Sue MD [address] [place] [address] [place] [address] Primary open angle glaucoma (POAG) of both eyes, moderate stage (Primary Dx) Social History Tobacco Use Types Packs/Day Years Used Date Smoking Tobacco: Never Smokeless Tobacco: Never Comments Unknown Sex and Gender Information Value Date Recorded Sex Assigned at Not on file Legal Sex Female 3:59 AM NUTRITIONAL SERVICES DIRECTOR Gender Identity Female 05/13/2021 4:21 PM NUTRITIONAL SERVICES DIRECTOR Sexual Orientation Not on file documented as of this encounter Patient Instructions * Patient Instructions* Kaushik Sue MD - 09/01/2018 10:15 AM CDT documented in this encounter Ordered Prescriptions Prescription Sig Dispense Quantity Refills Last Filled Start Date End Date timolol (TIMOPTIC) 0.5 % ophthalmic solution Administer 1 drop into both eyes every morning 5 mL 11 09/01/2018 9 documented in this encounter Progress Notes * Kaushik Sue MD - 09/01/2018 10:15 AM CDT Poag moderate both eyes- Prostaglandin is not keeping pressure low enough. Start timolol qam ou. Shallow angles NSC both eyes (OU)- borderline vs diabetes mellitus (DM)- tight bs control 1m with Dr. Thomas documented in this encounter Plan of Treatment Not on file documented as of this encounter Visit Diagnoses Diagnosis Primary open angle glaucoma (POAG) of both eyes, moderate stage- Primary documented in this encounter Eye Exam Visual Acuity (Snellen - Linear) Right eye Left eye Dist cc 20/20 -1 20/30 -1 Correction: Glasses Tonometry (Applanation, 10:27 AM) Right eye Left eye Pressure 28 26 Pupils Dark Light Shape React APD Right eye 3 2 Round + - Left eye 3 2 Round + - Extraocular Movement Right eye Left eye Full Full Neuro/Psych Oriented x3: Yes Mood/Affect: Normal External Exam Right eye Left eye External Normal Normal Slit Lamp Exam Right eye Left eye Lids/Lashes Normal Normal Conjunctiva/Sclera White and quiet White and ketan et Cornea Clear Clear Anterior Chamber Deep and quiet, shallow ou simon pherally Deep and quiet Iris Round and reactive Round and newton ctive Lens 2+ Nuclear sclerosis 2+ Nuclear sclerosis Vitreous Normal Normal Care Teams Resource Forester Relationship Specialty Start Date End Date Elpidio Serrato MD PCP - General Internal Medicine 06/09/18 documented as of this encounter
--- OUTSIDE RECORDS SUMMARY | 2024-04-29 14:12 | XMS_ITS | Encounter Summary ---
Author Organization [facility] Address [address] [place] [address] Phone Care Team Providers Care Surgical Dental Assistant Name Role Phone Elpidio Serrato MD Primary Care Provider [phone] Reason for Visit * Reason Onset Date Comments CMN 12/28/2019 [employer] Encounter Details Date Type Department Care Team (Late st Contact Info) Description 12/28/2019 Telephone [facility] Endocrinology Metabolism and Lipid [address] [facility] [address] [place] [address] [place] [address] Malika Carter RN CMN ([employer]) Social History Tobacco Use Types Packs/Day Years Used Date Smoking Tobacco: Never Smokeless Tobacco: Never Comments Unknown Sex and Gender Information Value Date Recorded Sex Assigned at Not on file Legal Sex Female 3:59 AM SUPERVISOR PURIFICATION Gender Identity Female 05/13/2021 4:21 PM SUPERVISOR PURIFICATION Sexual Orientation Not on file documented as of this encounter Miscellaneous Notes * Telephone Encounter - Malika Carter RN - 12/28/2019 11:47 AM CDT CMN from [employer] completed and placed with chart note in Dr. Bell's folder for signature. documented in this encounter Plan of Treatment Not on file documented as of this encounter Visit Diagnoses Not on filedocumented in this encounter Care Teams Surgical Dental Assistant Relationship Specialty Start Date End Date Elpidio Serrato MD PCP - General Internal Medicine 06/09/18 documented as of this encounter
--- OUTSIDE RECORDS SUMMARY | 2024-04-29 14:12 | XMS_ITS | Encounter Summary ---
Author Organization [facility] Address [address] [place] [address] Phone Care Team Providers Care Preassembler Printed Circuit Board Name Role Phone Elpidio Serrato MD Primary Care Provider [phone] Reason for Visit * Reason Onset Date Comments Prior Auth 12/26/2018 CELEBREX 200MG Encounter Details Date Type Department Care Team (Late st Contact Info) Description 12/26/2018 Telephone [facility] Endocrinology Metabolism and Lipid [address] [facility] [address] [facility] [address] [place] [address] [place] [address] Brooklyn Dunbar RMA Prior Auth (CELEBREX 200MG) Social History Tobacco Use Types Packs/Day Years Used Date Smoking Tobacco: Never Smokeless Tobacco: Never Comments Unknown Sex and Gender Information Value Date Recorded Sex Assigned at Not on file Legal Sex Female 3:59 AM CERTIFIED MASTER LOCKSMITH Gender Identity Female 05/13/2021 4:21 PM CERTIFIED MASTER LOCKSMITH Sexual Orientation Not on file documented as of this encounter Miscellaneous Notes * Telephone Encounter - Brooklyn Dunbar MA - 12/26/2018 9:26 AM CDT MEDICATION PRIOR AUTHORIZATION FORM Date: 12/26/18 Patient Name: Isabelle Lutz : 1950 PROVIDER: NANCY DAVENPORT NPI: [id number] PRIMARY DIAGNOSIS: OSTEOARTHIRIS ICD-10 CODE: M17.10 RX [employer]: [employer] ID#: [id number] [facility]#: [id number] FAX#: [phone] DRUG INFORMATION: Requested Prescriptions No prescriptions requested or ordered in this encounter CELEBREX 200MG TABLET TAKE 1 TABLET DAILY #90 CAN THIS DRUG BE FILLED AT ANY PHARMACY?: yes DOES THIS DRUG REQUIRE THE USE OF A SPECIALTY PHARMACY?: no PHARMACY NAME: [facility] PHONE#: [phone] FAX#: [phone] AUTH#: [id number] EFFECTIVE: 11/26/18 EXPIRES: 12/26/19 NOTES: APPROVED Completed by: Brooklyn Dunbar MA documented in this encounter Plan of Treatment Not on file documented as of this encounter Visit Diagnoses Not on filedocumented in this encounter Care Teams Preassembler Printed Circuit Board Relationship Specialty Start Date End Date Elpidio Serrato MD PCP - General Internal Medicine 06/09/18 documented as of this encounter
--- OUTSIDE RECORDS SUMMARY | 2024-04-29 14:12 | XMS_ITS | Encounter Summary ---
Author Organization [facility] Address [address] [place] [address] Phone Care Team Providers Care Wet Washer Machine Name Role Phone Elpidio Serrato MD Primary Care Provider [phone] Encounter Details Date Type Department Care Team (Late st Contact Info) Description 03/31/2019 3:40 PM FUR REMODELER Lab [facility] Endocrinology Metabolism and Lipid [address] 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, with long-term current use of insulin, unspecified laterality (CMS/HCC) Social History Tobacco Use Types Packs/Day Years Used Date Smoking Tobacco: Never Smokeless Tobacco: Never Comments Unknown Sex and Gender Information Value Date Recorded Sex Assigned at Not on file Legal Sex Female 3:59 AM FUR REMODELER Gender Identity Female 05/13/2021 4:21 PM FUR REMODELER Sexual Orientation Not on file documented as of this encounter Plan of Treatment Not on file documented as of this encounter Procedures Procedure Name Priority Date/Time Associated Diagnosis Comments CBC WITH AUTO DIFFERENTIAL Routine 03/31/2019 3:37 PM FUR REMODELER 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, with long-term current use of insulin, unspecified laterality (CMS/HCC) ALBUMIN CREATININE RATIO, URINE Routine 03/31/2019 3:37 PM FUR REMODELER 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, with long-term current use of insulin, unspecified laterality (CMS/HCC) TSH Routine 03/31/2019 3:37 PM FUR REMODELER 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, with long-term current use of insulin, unspecified laterality (CMS/HCC) LIPID PANEL Routine 03/31/2019 3:37 PM FUR REMODELER 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 [place] 53.8(L) >60.0 mL/min/1.7 3 m2 [facility] eGFR 62.3 >60.0 mL/min/1.7 3 m2 [facility] Blood specimen (specimen) 03/31/2019 3:37 PM FUR REMODELER 03/31/2019 4:04 PM FUR REMODELER us Merna Bell MD LAB BLOOD ORDERABLES Final Re sult [facility] * CBC with auto differential (03/31/2019 3:37 PM FUR REMODELER) White Blood Count 9.8 3.6 - 11.2 [...] [facility] Blood specimen (specimen) 03/31/2019 3:37 PM FUR REMODELER 03/31/2019 4:04 PM FUR REMODELER Merna Bell MD LAB BLOOD ORDERABLES Final Re sult [facility] * TSH (03/31/2019 3:37 PM FUR REMODELER) TSH (Thyrotropin) 2.62 0.27 - 4.20 uIU/mL [facility] Comment:* Please note update d reference range for TSH effective 07/17/18 * Blood specimen (specimen) 03/31/2019 3:37 PM FUR REMODELER 03/31/2019 4:04 PM FUR REMODELER Merna Bell MD LAB BLOOD ORDERABLES Final Re sult Performing Organization Address City/[facility] Co de Phone Number [facility] * (ABNORMAL) Lipid panel (03/31/2019 3:37 PM FUR REMODELER) Triglycerides 186(H) 0 - 149 mg/dL [facility] [...] Total HDL-C Direct 50 >39 mg/dL [facility] Comment: [employer]LE[employer]UCATION PROGRAM [...] mg/dL Blood specimen (specimen) 03/31/2019 3:37 PM FUR REMODELER 03/31/2019 4:04 PM FUR REMODELER Merna Bell MD LAB BLOOD ORDERABLES Final Re sult Performing Organization Address [facility] de Phone Number [facility] * (ABNORMAL) Albumin Creatinine Ratio, Urine (03/31/2019 3:37 PM FUR REMODELER) Microalb, Ur 27.3(H) 0.0 - 22.9 mg/L [facility] Random Urine Creatinine 271.8 mg/dL [facility] Microalb/Creat Ratio 10.0 0.0 - 29.9 mg/g [facility] Urine 03/31/2019 3:37 PM FUR REMODELER 03/31/2019 4:04 PM FUR REMODELER Merna Bell MD LAB URINE ORDERABLES Final Re sult Performing Organization Address City/State/[facility] Co de Phone Number [facility] documented in this encounter Visit Diagnoses Diagnosis 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
--- OUTSIDE RECORDS SUMMARY | 2024-04-29 14:12 | XMS_ITS | Encounter Summary ---
Author Organization [facility] Address [address] [place] [address] Phone Care Team Providers Care Junior Sales Representative Name Role Phone Elpidio Serrato MD Primary Care Provider [phone] Encounter Details Date Type Department Care Team (Late st Contact Info) Description 06/26/2018 Telephone [facility] Endocrinology Metabolism and Lipid [address] [facility] [address] [place] [address] [place] [address] Malika Carter RN Social History Tobacco Use Types Packs/Day Years Used Date Smoking Tobacco: Never Smokeless Tobacco: Never Comments Unknown Sex and Gender Information Value Date Recorded Sex Assigned at Not on file Legal Sex Female 3:59 AM RIG HAND Gender Identity Female 05/13/2021 4:21 PM RIG HAND Sexual Orientation Not on file documented as of this encounter Miscellaneous Notes * Telephone Encounter - Malika Carter RN - 07/01/2018 5:31 PM RIG HAND Created in error. HAND documented in this encounter Plan of Treatment Not on file documented as of this encounter Visit Diagnoses Not on filedocumented in this encounter Care Teams Junior Sales Representative Relationship Specialty Start Date End Date Elpidio Serrato MD PCP - General Internal Medicine 06/09/18 documented as of this encounter
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
--- OUTSIDE RECORDS SUMMARY | 2024-04-29 14:13 | XMS_ITS | Encounter Summary ---
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, with long-term current use of insulin, unspecified laterality (HCC) Merna Bell MD Phone: tel: fax: [address] [place] [address] Referral ID Status Reason Start Date Expiration Date V isits Requested Visits Authorized [id number] Closed Specialty Services Required 06/12/2018 12/22/2019 10 10 Question Answer [id number] No Injectable Medications Yes Medication Name Medication Name Amount Amount Frequency Frequency Route Route ORATE MANAGER Encounter Details Date Type Department Care Team (Latest Contact Info) Description 06/12/2018 Orders Only [facility] Endocrinology Metabolism and Lipid [address] [facility] 13th [place] [address] [place] [address] Merna Bell MD [address] [facility] [address] [place] [address] 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, with long-term current use of insulin, unspecified laterality (CMS/HCC) (Primary Dx) Social History Tobacco Use Types Packs/Day Years Used Date Smoking Tobacco: Never Smokeless Tobacco: Never Comments Unknown Sex and Gender Information Value Date Recorded Sex Assigned at Not on file Legal Sex Female 3:59 AM CORPORATE MANAGER Gender Identity Female 05/13/2021 4:21 PM CORPORATE MANAGER Sexual Orientation Not on file documented as of this encounter Plan of Treatment Scheduled Referrals Name Type Priority Associated Diagnoses Orde r Schedule Ambulatory referral to Diabetic Education Outpatient Referral Routine 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
--- OUTSIDE RECORDS SUMMARY | 2024-04-29 14:13 | XMS_ITS | Encounter Summary ---
Author Organization [facility] Address [address] [place] [address] Phone Care Team Providers Care Passenger Screener Name Role Phone Joaquin Melchor MD Primary Care Prov ider Encounter Details Date Type Department Care Team (Late st Contact Info) Description 02/20/2018 Telephone [facility] Endocrinology Metabolism and Lipid [address] [facility] 13th [place] [address] [place] [address] Merna Bell MD [address] [facility] [address] [place], [place] [id number] Social History Tobacco Use Types Packs/Day Years Used Date Smoking Tobacco: Never Comments Unknown Sex and Gender Information Value Date Recorded Sex Assigned at Not on file Legal Sex Female 3:59 AM SALVAGE GRINDER Gender Identity Female 05/13/2021 4:21 PM SALVAGE GRINDER Sexual Orientation Not on file documented as of this encounter Miscellaneous Notes * Telephone Encounter - Kasey Grimaldo MA - 02/20/2018 10:52 AM CDT Pt called and lvm stating she would like to speak with you, please call documented in this encounter Plan of Treatment Not on file documented as of this encounter Visit Diagnoses Not on filedocumented in this encounter Care Teams Passenger Screener Relationship Specialty Start Date End Date Joaquin Melchor MD [address] [place] [address] PCP - General 06/25/16 06/08/18 documented as of this encounter
--- OUTSIDE RECORDS SUMMARY | 2024-04-29 14:13 | XMS_ITS | Encounter Summary ---
Author Organization [facility] Address [address] [place] [address] Phone Care Team Providers Care Supervisor Salvage Name Role Phone Elpidio Serrato MD Primary Care Provider [phone] Encounter Details Date Type Department Care Team (Late st Contact Info) Description 06/13/2018 Orders Only [facility] Endocrinology Metabolism and Lipid [address] [facility] 13th [place] [address] [place] [id number] Ara Mathews RMA Social History Tobacco Use Types Packs/Day Years Used Date Smoking Tobacco: Never Smokeless Tobacco: Never Comments Unknown Sex and Gender Information Value Date Recorded Sex Assigned at Not on file Legal Sex Female 3:59 AM SAP CONSULTANT Gender Identity Female 05/13/2021 4:21 PM SAP CONSULTANT Sexual Orientation Not on file documented as of this encounter Plan of Treatment Not on file documented as of this encounter Visit Diagnoses Not on filedocumented in this encounter Historical Medications * This list may reflect changes made after this encounter. Medication Sig Dispense Quantity Refills Last Filled Start D ate End Date traMADol (ULTRAM) 50 mg tablet 06/12/2018 03/31/2019 added in this encounter Care Teams Supervisor Salvage Relationship Specialty Start Date End Date Elpidio Serrato MD PCP - General Internal Medicine 06/09/18 documented as of this encounter
--- OUTSIDE RECORDS SUMMARY | 2024-04-29 14:13 | XMS_ITS | Encounter Summary ---
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 Patient has phone number / email for future reference. Read food labels and use book/internet to count carbs. Take insulin before eating. documented in this encounter Progress Notes * Monserrat Manning CDE - 02/25/2018 1:30 PM CDT Images from the original note were not included. FOLLOW-UP DIABETES EDUCATION Encounter Date: 02/25/2018 Referring Physician: Merna Bell MD Ms. Isabelle Lutz is a 67 y.o. female : 1950 Start Time: 1330 End Time: 1445 Total Minutes: 75 min Isabelle was here for follow up visit regarding uncontrolled Type 2 diabetes Pt had been sick through the month of January. She was on Prednisone and BGs were running high. She had received a sliding scale to use for her BGs. She is no longer on Prednisone but desires assistance with diet and having insulin adjusted better to what she is eating. She is not counting carbs and was asking if she should be. 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 She is wearing a Dexcom. Current Diabetes Meds/Insulin Regimen is: Basal: Lantus 45 units once per day Bolus:Humalog 15 units with breakfast and 10 units with lunch/dinner, plus adjustment scale of 1 unit for every 25 points > 150 mg/dl. She often skips lunch.-May miss doses, especially in the evening. Oral Diabetes Meds: 500 mg Metformin twice daily, 4 mg Glimepiride twice daily Injectables: 1.8 mg Victoza daily Reviewed Self Monitoring Blood Glucose (SMBG) records She is using Dexcom G6, so is seldom SMBG. She checked a couple of times to check the accuracy. She has some days with wide variability in BGs. Labs Lab Results Component Value Date HGBA1C 7.9 12/09/2017 Lab Results Component Value Date CHOL 210 (H) 06/18/2016 Lab Results Component Value Date HDL 45 06/18/2016 Lab Results Component Value Date LDL 87 06/18/2016 Lab Results Component Value Date TRIG 390 (H) 06/18/2016 Lab Results Component Value Date MICROALBUR 20.6 12/03/2016 Areas of Concern: Missing dose of insulin, Timing of meals and insulin and Consuming inconsistent carbohydrate amounts while taking set doses of insulin (She doses insulin after eating. She may skip dose at work because she doesn't want anyone see her take insulin.) The above areas of concern were discussed with Isabelle Diabetes Self-Management Support Plan: Patient has chosen to utilize the following methods of ongoing support to help them manage their diabetes long-term: Diabetes Websites. Current Plan: Keep food, blood glucose, and insulin records. Patient has phone number / email for future reference. Read food labels and use book/internet to count carbs. Aim for 45-60g carb/meal. Take insulin before eating. Follow up 1 month. 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
--- OUTSIDE RECORDS SUMMARY | 2024-04-29 14:13 | XMS_ITS | Encounter Summary ---
Author Organization [facility] Address [address] [place] [address] Phone Care Team Providers Care Duct Layer Helper Name Role Phone Elpidio Serrato MD Primary Care Provider [phone] Encounter Details Date Type Department Care Team (Late st Contact Info) Description 06/16/2018 Orders Only [facility] Endocrinology Metabolism and Lipid [address] [facility] 13th [place] [address] [place] [address] Merna Bell MD [address] [facility] [address] [place] [address] Type 2 diabetes mellitus with complication, unspecified whether dedicated intermodal truck driver insulin use (CMS/[facility]) (Primary Dx) Social History Tobacco Use Types Packs/Day Years Used Date Smoking Tobacco: Never Smokeless Tobacco: Never Comments Unknown Sex and Gender Information Value Date Recorded Sex Assigned at Not on file Legal Sex Female 3:59 AM BLOCKER AND POLISHER Gender Identity Female 05/13/2021 4:21 PM BLOCKER AND POLISHER Sexual Orientation Not on file documented as of this encounter Plan of Treatment Not on file documented as of this encounter Procedures Procedure Name Priority Date/Time Associated Diagnosis Comments POCT GLUCOSE Routine 06/16/2018 10:05 AM BLOCKER AND POLISHER Type 2 diabetes mellitus with complication, unspecified whether dedicated intermodal truck driver insulin use (CMS/HCC) POCT HEMOGLOBIN A1C Routine 06/16/2018 1 0:04 AM BLOCKER AND POLISHER Type 2 diabetes mellitus with complication, unspecified whether dedicated intermodal truck driver insulin use ([facility]) documented in this encounter Results * (ABNORMAL) POCT glucose (06/16/2018 10:05 AM BLOCKER AND POLISHER) Glucose Blood, POC 197 mg/dL Blood specimen (specimen) 06/16/2018 10:05 AM BLOCKER AND POLISHER Merna Bell MD POINT OF CARE TEST ORDERABLES Final Result * (ABNORMAL) POCT hemoglobin A1c (06/16/2018 10:04 AM BLOCKER AND POLISHER) Hemoglobin A1C, POC 7.6 Blood specimen (specimen) 06/16/2018 10:04 AM BLOCKER AND POLISHER us Merna Bell MD POINT OF CARE TEST ORDERABLES Final Result documented in this encounter Visit Diagnoses Diagnosis Type 2 diabetes mellitus with complication, unspecified whether dedicated intermodal truck driver insulin use- Primary documented in this encounter Care Teams Duct Layer Helper Relationship Specialty Start Date End Date Elpidio Serrato MD PCP - General Internal Medicine 06/09/18 documented as of this encounter
--- OUTSIDE RECORDS SUMMARY | 2024-04-29 14:13 | XMS_ITS | Encounter Summary ---
Author Organization [facility] Address [address] [place] [address] Phone Care Team Providers Care Dray Truck Driver Name Role Phone Joaquin Melchor MD Primary Care Prov ider Encounter Details Date Type Department Care Team (Late st Contact Info) Description 05/18/2018 Orders Only [facility] Endocrinology Metabolism and Lipid [address] [facility] 13th [place] [address] [place] [address] Merna Bell MD [address] [facility] [address] [place], [place] [id number] Social History Tobacco Use Types Packs/Day Years Used Date Smoking Tobacco: Never Comments Unknown Sex and Gender Information Value Date Recorded Sex Assigned at Not on file Legal Sex Female 3:[address]STRA[address] Gender Identity Female 05/13/2021 4:[address] ABSTRACTOR Sexual Orientation Not on file documented as of this encounter Ordered Prescriptions Prescription Sig Dispense Quantity Refills Last Filled Start Date End Date metFORMIN (GLUCOPHAGE) 500 mg tablet Take one tablet by mouth twice a day 180 tablet 3 05/18/2018 03/31/2019 documented in this encounter Plan of Treatment Not on file documented as of this encounter Visit Diagnoses Not on filedocumented in this encounter Discontinued Medications Medication Sig Discontinue Reason Start Date End Da te metFORMIN (GLUCOPHAGE) 500 mg tablet 2 times daily. Reorder 02/19/2006 05/18/2018 documented as of this encounter Care Teams Dray Truck Driver Relationship Specialty Start Date End Date Joaquin Melchor MD [address] [place] [address] PCP - General 06/25/16 06/08/18 documented as of this encounter
--- OUTSIDE RECORDS SUMMARY | 2024-04-29 14:13 | XMS_ITS | Encounter Summary ---
Author Organization [facility] Address [address] [place] [address] Phone Care Team Providers Care Two Way Radio Installer Name Role Phone Elpidio Serrato MD Primary Care Provider [phone] Encounter Details Date Type Department Care Team (Late st Contact Info) Description 06/09/2018 8:30 AM MAJOR ASSEMBLY LINEMAN Office Visit [facility] Ophthalmology [address] [place] [address] [place] [phone] Kaushik Sue MD [address] [place] [address] Primary open angle glaucoma of both eyes, unspecified glaucoma stage (Primary Dx); Nonproliferative diabetic retinopathy (CMS/HCC); Nuclear sclerotic cataract of both eyes Social History Tobacco Use Types Packs/Day Years Used Date Smoking Tobacco: Never Smokeless Tobacco: Never Comments Unknown Sex and Gender Information Value Date Recorded Sex Assigned at Not on file Legal Sex Female 3:59 AM MAJOR ASSEMBLY LINEMAN Gender Identity Female 05/13/2021 4:21 PM MAJOR ASSEMBLY LINEMAN Sexual Orientation Not on file documented as of this encounter Patient Instructions * Patient Instructions* Kaushik Sue MD - 06/09/2018 8:30 AM MAJOR ASSEMBLY LINEMAN Dilation instructions Please refer to your Dilating Eyedrops brochure for instructions regarding dilation. R ASSEMBLY LINEMAN documented in this encounter Ordered Prescriptions Prescription Sig Dispense Quantity Refills Last Filled Start Date End Date latanoprost (XALATAN) 0.005 % ophthalmic solution Administer 1 drop into both eyes nightly. 2.5 mL 11 06/09/2018 9 documented in this encounter Progress Notes * Kaushik Sue MD - 06/09/2018 8:30 AM CST Poag moderate both eyes- Restart Prostaglandin. NSC both eyes (OU)- not vs diabetes mellitus (DM)- tight bs control 2m R ASSEMBLY LINEMAN documented in this encounter Plan of Treatment Not on file documented as of this encounter Procedures Procedure Name Priority Date/Time Associated Diagnosis Comments FORREST VISUAL FIELD - OU - BOTH EYES Routine 06/09/2018 8:55 AM MAJOR ASSEMBLY LINEMAN Primary open angle glaucoma of both eyes, unspecified glaucoma stage documented in this encounter Results * Forrest Visual Field - OU - Both Eyes (06/09/2018 8:55 AM MAJOR ASSEMBLY LINEMAN) Anatomical Region Laterality Modality Head Visual Field Narrative 06/09/2018 9:22 AM MAJOR ASSEMBLY LINEMAN Right Eye Fixation was good. Cooperation was good. Reliability was good. Left Eye Fixation was good. Cooperation was good. Reliability was good. Notes c hvf Glaucomatous changes on vf ou. Kaushik Sue MD OPHTH VISUAL FIELD Edited Result - Final documented in this encounter Visit Diagnoses Diagnosis Primary open angle glaucoma of both eyes, unspecified glaucoma stage- Primary Nonproliferative diabetic retinopathy (HCC) Type II or unspecified type diabetes mellitus with ophthalmic manifestations, not stated as uncontrolled Nuclear sclerotic cataract of both eyes Senile nuclear sclerosis documented in this encounter Discontinued Medications Medication Sig Discontinue Reason Start Date End Da te latanoprost (XALATAN) 0.005 % ophthalmic solution 1 gtt to both eyes at bedtime 09/05/2015 06/09/2018 documented as of this encounter Eye Exam Visual Acuity (Snellen - Linear) Right eye Left eye Dist cc 20/20 -2 20/30 Dist ph cc 20/20 -1 Correction: Glasses Tonometry (Applanation, 9:15 AM) Right eye Left eye Pressure 29 29 Pachymetry (Historical) Right eye Left eye Thickness 551 549 Pupils Dark Light Shape React APD Right eye 3.5 2 Round + - Left eye 3.5 2 Round + - Visual Vann Right eye Left eye Full Full Extraocular Movement Right eye Left eye Full Full Neuro/Psych Oriented x3: Yes Mood/Affect: Normal Dilation Both eyes: 1.0% Mydriacyl @ 9:16 AM External Exam Right eye Left eye External Normal Normal Slit Lamp Exam Right eye Left eye Lids/Lashes Normal Normal Conjunctiva/Sclera White and quiet White and ketan et Cornea Clear Clear Anterior Chamber Deep and quiet Deep and quiet Iris Round and reactive Round and newton ctive Lens 2+ Nuclear sclerosis 2+ Nuclear sclerosis Vitreous Normal Normal Fundus Exam Right eye Left eye C/D Ratio 0.85 0.85 Macula Normal Normal Vessels Normal Normal Periphery Normal Normal Wearing Rx Sphere Cylinder [place] Add Right eye -3.25 +1.00 165 +2.50 Left eye -3.25 +0.75 025 +2.50 Age: 2+ years Type: FT28 Manifest Refraction Sphere Cylinder [place] Dist [place] Add Right eye -3.25 +1.00 165 20/20 +2.50 Left eye -2.75 +0.75 025 20/20-2 +2.50 Final Rx Sphere Cylinder [place] Dist VA Add Right eye -3.25 +1.00 165 20/20 +2.50 Left eye -2.75 +0.75 025 20/20-2 +2.[address] Radio Installer Relationship Specialty Start Date End Date Elpidio Serrato MD PCP - General Internal Medicine 06/09/18 documented as of this encounter
--- OUTSIDE RECORDS SUMMARY | 2024-04-29 14:13 | XMS_ITS | Encounter Summary ---
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, with long-term current use of insulin, unspecified laterality (HCC) Merna Bell MD Phone: tel: fax: [place] [address] [place] [address] Referral ID Status Reason Start Date Expiration Date V isits Requested Visits Authorized [id number] Closed Specialty Services Required 02/25/2018 12/05/2019 10 10 Question Answer [id number] No DNRFR Individual DNSELFRFR Follow-Up DSME/T DSME/T Content All 10 DSMT content areas as appropriate DNMNTRFR Intital MNT Injectable Medications Yes Medication Name Medication Name Amount Amount Frequency Frequency Route Route Encounter Details Date Type Department Care Team (Latest Contact Info) Description 02/25/2018 Orders Only [facility] Endocrinology Metabolism and Lipid [address] [facility] 13th [place] [address] [place] [address] Merna Bell MD [address] [facility] [address] [place] [address] 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, with long-term current use of insulin, unspecified laterality (CMS/HCC) (Primary Dx) Social History Tobacco Use Types Packs/Day Years Used Date Smoking Tobacco: Never Comments Unknown Sex and Gender Information Value Date Recorded Sex Assigned at Not on file Legal Sex Female 3:59 AM DENITRATOR OPERATOR Gender Identity Female 05/13/2021 4:21 PM DENITRATOR OPERATOR Sexual Orientation Not on file documented as of this encounter Plan of Treatment Scheduled Referrals Name Type Priority Associated Diagnoses Orde r Schedule Ambulatory referral to Diabetic Education Outpatient Referral Routine 

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
--- OUTSIDE RECORDS SUMMARY | 2024-04-29 14:14 | XMS_ITS | Encounter Summary ---
Author Organization [facility] Address [address] [place] [address] Phone Care Team Providers Care Enterer Name Role Phone Joaquin Melchor MD Primary Care Prov ider Encounter Details Date Type Department Care Team (Late st Contact Info) Description 12/09/2017 Orders Only [facility] Endocrinology Metabolism and Lipid [address] [facility] 13th [place] [address] [place] [phone] Ara Mathews RMA Social History Tobacco Use Types Packs/Day Years Used Date Smoking Tobacco: Never Comments Unknown Sex and Gender Information Value Date Recorded Sex Assigned at Not on file Legal Sex Female 3:59 AM DECONTAMINATION TECHNICIAN Gender Identity Female 05/13/2021 4:21 PM DECONTAMINATION TECHNICIAN Sexual Orientation Not on file documented as of this encounter Plan of Treatment Not on file documented as of this encounter Visit Diagnoses Not on filedocumented in this encounter Historical Medications * This list may reflect changes made after this encounter. insulin lispro (HumaLOG KwikPen Insulin) 100 unit/mL insulin pen INJECT 10 at breakfast, 8-12 units at lunch and 5 units with snacks 06/25/2016 05/20/2018 added in this encounter Care Teams Enterer Relationship Specialty Start Date End Date Joaquin Melchor MD [address] [place] [address] PCP - General 06/25/16 06/08/18 documented as of this encounter
--- OUTSIDE RECORDS SUMMARY | 2024-04-29 14:14 | XMS_ITS | Encounter Summary ---
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, with long-term current use of insulin, unspecified laterality (CMS/HCC); Acquired hypothyroidism Social History Tobacco Use Types Packs/Day Years Used Date Smoking Tobacco: Never Comments Unknown Sex and Gender Information Value Date Recorded Sex Assigned at Not on file Legal Sex Female 3:59 AM MEDICAL OFFICE SPECIALIST Gender Identity Female 05/13/2021 4:21 PM MEDICAL OFFICE SPECIALIST Sexual Orientation Not on file documented as of this encounter Plan of Treatment Not on file documented as of this encounter Procedures Procedure Name Priority Date/Time Associated Diagnosis Comments CBC WITH AUTO DIFFERENTIAL Routine 12/09/2017 10:42 AM CDT 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, with long-term current use of insulin, unspecified laterality (CMS/HCC) VITAMIN D 25 HYDROXY Routine 12/09/2017 10:42 AM CDT 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, with long-term current use of insulin, unspecified laterality (CMS/HCC) TSH Routine 12/09/2017 10:42 AM CDT Acquired hypothyroidism T4, FREE Routine 12/09/2017 10:42 AM CDT Acquired hypothyroidism PTH Routine 12/09/2017 10:42 AM CDT 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, with long-term current use of insulin, unspecified laterality (CMS/HCC) COMPREHENSIVE METABOLIC PANEL Routine 12/09/2017 10:42 AM CDT 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, with long-term current use of insulin, unspecified laterality (CMS/HCC) documented in this encounter Results * CBC with auto differential (12/09/2017 10:42 AM CDT) White Blood Count 9.3 3.6 - 11.2 K/uL [facility] RBC 4.31 3.63 - 4.92 M/uL [facility] Hemoglobin 13.0 11.9 - 15.5 g/dL [facility] Hematocrit 38.5 36.1 - 44.3 % [facility] MCV 89.3 80.0 - 97.6 fL [facility] MCH 30.1 26.7 - 33.7 pg [facility] MCHC 33.7 32.7 - 35.5 g/dL [facility] RBC Dist Width 13.2 12.3 - 17.0 % [facility] Platelet Count 244 140 - 440 K/uL [facility] MPV 9.4 6.8 - 10.4 fL [facility] Neutrophils % 60.5 38.7 - 74.5 % [facility] Lymphocyte % 31.0 20.0 - 54.3 % [facility] Monocytes % 6.3 4.3 - 13.5 % [facility] Eosinophils % 1.7 0.0 - 6.0 % [facility] Basophil % 0.5 0.0 - 3.0 % [facility] Absolute Neutrophil 5.7 1.8 - 6.6 K/uL [facility] Absolute Lymphocyte 2.9 0.8 - 3.3 K/uL [facility] Absolute Monocyte 0.6 0.2 - 1.2 K/uL [facility] Absolute Eosinophil 0.2 0.0 - 0.5 K/uL [facility] Absolute Basophil 0.0 0.0 - 0.2 K/uL [facility] Nucleated RBC % 0.0 0.0 - 0.4 /100 WBC [facility] Blood specimen (specimen) 12/09/2017 10:42 AM CDT 12/09/2017 2:24 PM CDT Merna Bell MD LAB BLOOD ORDERABLES Final Re sult Performing Organization Address [facility]/ZIP Co de Phone Number [facility] * PTH, intact (12/09/2017 10:42 AM CDT) Parathyroid Hormone 46.1 15.0 - 65.0 pg/mL [facility] Blood specimen (specimen) 12/09/2017 10:42 AM CDT 12/09/2017 2:24 PM CDT Merna Bell MD LAB BLOOD ORDERABLES Final Re sult [facility] * Vitamin D 25 hydroxy (12/09/2017 10:42 AM CDT) Vitamin D 37.4 30.0 - 100.0 ng/mL [facility] Comment: VITAMIN D DEFICIENCY = LESS THAN 20 ng/mL) ? VITAMIN D INSUFFICIENCY = LESS THAN 30 ng/mL ? RECOMMENDED NORMAL RANGE = 30-100 ng/mL Blood specimen (specimen) 12/09/2017 10:42 AM CDT 12/09/2017 2:24 PM CDT Merna Bell MD LAB BLOOD ORDERABLES Final Re sult [facility] * T4, free (12/09/2017 10:42 AM CDT) Free T4 1.39 0.93 - 1.70 ng/dL [facility] Blood specimen (specimen) 12/09/2017 10:42 AM CDT 12/09/2017 2:24 PM CDT Merna Bell MD LAB BLOOD ORDERABLES Final Re sult Performing Organization Address [facility]/ZIP Co de Phone Number [facility] * TSH (12/09/2017 10:42 AM CDT) Pathologist [facility] TSH (Thyrotropin) 1.64 0.50 - 5.00 uIU/mL [facility] Blood specimen (specimen) 12/09/2017 10:42 AM CDT 12/09/2017 2:24 PM CDT Merna Bell MD LAB BLOOD ORDERABLES Final Re sult Performing Organization Address [facility] Co de Phone Number [facility] * (ABNORMAL) Comprehensive metabolic panel (12/09/2017 10:42 AM CDT) Pathologist [facility] Total Protein 6.9 6.1 - 8.4 g/dL [facility] Albumin 4.2 3.5 - 5.2 g/dL [facility] Calcium 9.6 8.6 - 10.3 mg/dL [facility] BUN 27(H) 7 - 23 mg/dL [facility] Total Bilirubin 0.25 0.20 - 1.40 mg/dL [facility] Alk Phos, Total 82 35 - 129 IU/L [facility] AST (SGOT) 16 11 - 47 IU/L [facility] ALT (SGPT) 14 6 - 53 IU/L [facility] Creatinine 0.69 0.60 - 1.10 mg/dL [facility] Sodium 142 135 - 145 mmol/L [facility] Potassium 4.0 3.3 - 5.1 mmol/L [facility] Chloride 107 95 - 107 mmol/L [facility] CO2 Content 20(L) 21 - 29 mmol/L [facility] Glucose 50(L) 64 - 99 mg/dL [facility] Comment: NONFASTING GLUCOSE RANGE = 64-199 mg/dL FASTING GLUCOSE 64 - 99 = NORMAL FASTING GLUCOSE 100 - 125 = IMPAIRED FASTING GLUCOSE FASTING GLUCOSE >=126 = PROVISIONAL DIAGNOSIS OF DIABETES Blood specimen (specimen) 12/09/2017 10:42 AM CDT 12/09/2017 2:24 PM CDT Merna Bell MD LAB BLOOD ORDERABLES Final Re sult [facility] documented in this encounter Visit Diagnoses Diagnosis 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
--- OUTSIDE RECORDS SUMMARY | 2024-04-29 14:14 | XMS_ITS | Encounter Summary ---
Author Organization [facility] Address [address] [place] [address] Phone Care Team Providers Care Industrial Sociologist Name Role Phone Joaquin Melchor MD Primary Care Prov ider Reason for Visit * Reason Onset Date Comments PA Approval 11/01/2017 Encounter Details Date Type Department Care Team (Late st Contact Info) Description 11/01/2017 Documentation [facility] Endocrinology Metabolism and Lipid [address] [facility] 13th [address] [place] [address] Merna Bell MD [address] [facility] [address] [place] [address] PA Approval Social History Tobacco Use Types Packs/Day Years Used Date Smoking Tobacco: Never Comments Unknown Sex and Gender Information Value Date Recorded Sex Assigned at Not on file Legal Sex Female 3:59 AM PANCAKE PROFESSIONAL Gender Identity Female 05/13/2021 4:21 PM PANCAKE PROFESSIONAL Sexual Orientation Not on file documented as of this encounter Progress Notes * Milli Can MA - 11/01/2017 2:31 PM CDT PA approved for pt Celebrex 200mg qty 240 for 90 day valid from 09/30/17-10/30/2018 documented in this encounter Plan of Treatment Not on file documented as of this encounter Visit Diagnoses Not on filedocumented in this encounter Care Teams Industrial Sociologist Relationship Specialty Start Date End Date Joaquin Melchor MD [address] [place] [address] PCP - General 06/25/16 06/08/18 documented as of this encounter
--- OUTSIDE RECORDS SUMMARY | 2024-04-29 14:14 | XMS_ITS | Encounter Summary ---
Author Organization [facility] Address [address] [place] [address] Phone Care Team Providers Care Director Of Admissions Name Role Phone Joaquin Melchor MD Primary Care Prov ider Encounter Details Date Type Department Care Team (Late st Contact Info) Description 01/20/2018 Telephone [address] [place] [address] Claudia Harris, CAPRI Social History Tobacco Use Types Packs/Day Years Used Date Smoking Tobacco: Never Comments Unknown Sex and Gender Information Value Date Recorded Sex Assigned at Not on file Legal Sex Female 3:59 AM VULCANIZER RUBBER PLATE Gender Identity Female 05/13/2021 4:21 PM VULCANIZER RUBBER PLATE Sexual Orientation Not on file documented as of this encounter Miscellaneous Notes * Telephone Encounter - Claudia Harris RN - 01/20/2018 11:20 AM CDT Pt called to report that she has been sick with URI for several days.She was prescribed asmanex inhaler by her PMD.Her blood sugars are consistently above 200. She is on MDI and I added a sliding scale of 1 unit for every 25 points > 150. documented in this encounter Plan of Treatment Not on file documented as of this encounter Visit Diagnoses Not on filedocumented in this encounter Care Teams Director Of Admissions Relationship Specialty Start Date End Date Joaquin Melchor MD [address] [place] [address] PCP - General 06/25/16 06/08/18 documented as of this encounter
--- OUTSIDE RECORDS SUMMARY | 2024-04-29 14:14 | XMS_ITS | Encounter Summary ---
Author Organization [facility] Address [address] [place] [address] Phone Care Team Providers Care Urban Design Consultant Name Role Phone Joaquin Melchor MD Primary Care Prov ider Encounter Details Date Type Department Care Team (Late st Contact Info) Description 12/09/2017 10:00 AM CDT Lab [facility] Endocrinology Metabolism and Lipid [address] [facility] 13th [place] [address] [place] [phone] Hypothyroidism, unspecified type Social History Tobacco Use Types Packs/Day Years Used Date Smoking Tobacco: Never Comments Unknown Sex and Gender Information Value Date Recorded Sex Assigned at Not on file Legal Sex Female 3:59 AM DESIZING MACHINE OFFBEARER Gender Identity Female 05/13/2021 4:21 PM DESIZING MACHINE OFFBEARER Sexual Orientation Not on file documented as of this encounter Plan of Treatment Not on file documented as of this encounter Visit Diagnoses Diagnosis Hypothyroidism, unspecified type documented in this encounter Care Teams Urban Design Consultant Relationship Specialty Start Date End Date Joaquin Melchor MD [address] [place] [address] PCP - General 06/25/16 06/08/18 documented as of this encounter
--- OUTSIDE RECORDS SUMMARY | 2024-04-29 14:14 | XMS_ITS | Encounter Summary ---
Author Organization [facility] Address [address] [place] [address] Phone Care Team Providers Care Ingot Caster Name Role Phone Joaquin Melchor MD Primary Care Prov ider Encounter Details Date Type Department Care Team (Late st Contact Info) Description 12/09/2017 Orders Only [facility] Endocrinology Metabolism and Lipid [address] [facility] 13th [place] [address] [place] [address] Merna Bell MD [address] [facility] [address] [place] [address] Type 2 diabetes mellitus without complication, with long-term current use of insulin (CMS/HCC) (Primary Dx) Social History Tobacco Use Types Packs/Day Years Used Date Smoking Tobacco: Never Comments Unknown Sex and Gender Information Value Date Recorded Sex Assigned at Not on file Legal Sex Female 3:59 AM RADIATION OFFICER Gender Identity Female 05/13/2021 4:21 PM RADIATION OFFICER Sexual Orientation Not on file documented as of this encounter Plan of Treatment Not on file documented as of this encounter Procedures Procedure Name Priority Date/Time Associated Diagnosis Comments POCT GLYCOSYLATED HEMOGLOBIN (HGB A1C), HOME MONITOR Routine 12/09/2017 10:15 AM CDT Type 2 diabetes mellitus without complication, with long-term current use of insulin (CMS/HCC) POCT GLUCOSE Routine 12/09/2017 10:15 AM CDT Type 2 diabetes mellitus without complication, with long-term current use of insulin (CMS/HCC) documented in this encounter Results * (ABNORMAL) POCT glycosylated hemoglobin (Hb A1C) (12/09/2017 10:15 AM CDT) Hemoglobin A1C, POC 7.9 Blood specimen (specimen) (Blood, Venous) 12/09/2017 10:15 AM CDT Merna Bell MD POINT OF CARE TEST ORDERABLES Final Result * POCT glucose (12/09/2017 10:15 AM CDT) Glucose Blood, POC 117 mg/dL Blood specimen (specimen) 12/09/2017 10:15 AM CDT us Merna Bell MD POINT OF CARE TEST ORDERABLES Final Result documented in this encounter Visit Diagnoses Diagnosis Type 2 diabetes mellitus without complication, with long-term current use of insulin (CMS/HCC) (HCC)- Primary documented in this encounter Care Teams Ingot Caster Relationship Specialty Start Date End Date Joaquin Melchor MD [address] [place] [address] PCP - General 06/25/16 06/08/18 documented as of this encounter
--- OUTSIDE RECORDS SUMMARY | 2024-04-29 14:14 | XMS_ITS | Encounter Summary ---
Author Organization [facility] Address [address] [place] [address] Care Team Providers Care Paste Plant Supervisor Name Role Phone Joaquin Melchor MD Primary Care Prov ider Encounter Details Date Type Department Care Team (Latest Contact Info) Description 12/03/2016 11:09 AM CDT - 12/03/2016 11:59 PM [facility] Hospital Encounter [facility] OP INTERIM [phone] Merna Bell MD [address] [facility] [address] [address] Discharge Disposition: Discharge to home or self care Social History Tobacco Use Types Packs/Day Years Used Date Smoking Tobacco: Never Comments Unknown Sex and Gender Information Value Date Recorded Sex Assigned at Not on file Legal Sex Female 3:59 AM THERMOMETER TESTER Gender Identity Female 05/13/2021 4:21 PM THERMOMETER TESTER Sexual Orientation Not on file documented as of this encounter Medications at Time of Discharge blood glucose diagnostic (FREESTYLE LITE STRIPS) strip by in vitro route. 02/02/20 0 9 10/17/19 19 celecoxib (CeleBREX) 200 mg capsule daily. 6 05/20/19 19 ergocalciferol (VITAMIN D) 50,000 unit capsule TAKE ONE CAPSULE ONCE A WEEK 1 01/08/20 19 glimepiride (AMARYL) 4 mg tabletIndicatio ns:type 2 diabetes mellitus TAKE 1 TABLET TWICE A DAY e11.9 6 02/14/20 18 HYDROcodone-moses taminophen (NORCO) 5-325 mg per tabletIndicatio ns:Pain TAKE 1 TABLET BY MOUTH EVERY 4-6 HOURS NEEDED FOR PAIN 7 12/10/19 18 insulin glargine (LANTUS SOLOSTAR U-100 INSULIN) 100 unit/mL (3 mL) insulin pen daily. 7 05/07/20 18 insulin lispro (HumaLOG KwikPen Insulin) 100 unit/mL insulin pen INJECT 10 at breakfast, 8-12 units at lunch and 5 units with snacks 7 05/20/19 19 insulin syringe needleless (BD INSULIN SYRINGE SLIP TIP) 1 mL syringe USE DAILY W/LANTUS 6 07/25/19 22 latanoprost (XALATAN) 0.005 % ophthalmic solution 1 gtt to both eyes at bedtime 6 06/09/19 19 levothyroxine (SYNTHROID, LEVOTHROID) 88 mcg tablet daily. 5 02/13/20 18 liraglutide (VICTOZA 3-CRISTIANE) 0.6 mg/0.1 mL (18 mg/3 mL) injectionIndica tions:type 2 diabetes mellitus INJECT 1.8MG SUBCUTANEOUSLYDAILY 0 05/07/20 18 losartan-hydroc hlorothiazide (HYZAAR) 100-25 mg per tablet Take 1 tablet by mouth daily 6 04/14/20 18 metFORMIN (GLUCOPHAGE) 500 mg tablet 2 times daily. 6 05/18/19 19 pen needle, diabetic (BD ULTRA-FINE MINI PEN NEEDLE) 31 gauge x 3/16 needle Use one pen needle daily 4 06/16/19 19 simvastatin (ZOCOR) 40 mg tablet TAKE 1 TABLET EVERY DAY 01/12 9 04/12/20 18 documented as of this encounter Discharge Disposition Disposition Code Departure Means Destination Discharge to home or self care documented in this encounter Plan of Treatment Not on file documented as of this encounter Procedures Procedure Name Priority Date/Time Associated Diagnosis Comments ALBUMIN / CREATININE URINE RATIO, RANDOM Routine Gen Lab 12/03/2016 11:33 AM CDT VITAMIN D 25 HYDROXY Routine Gen Lab 12/03/2016 11:33 AM CDT PTH Routine Gen Lab 12/03/2016 11:33 AM CDT RENAL FUNCTION PANEL Routine Gen Lab 12/03/2016 11:33 AM CDT DISCHARGE LABORATORY CUMULATIVE REPORT 12/03/2016 12:00 AM CDT documented in this encounter Results * Vitamin D 25 hydroxy (12/03/2016 11:33 AM CDT) Vitamin D 25-OH 31.3 30.0 - 100.0 ng/mL [facility] Blood specimen (specimen) 12/03/2016 11:33 AM CDT 12/03/2016 11:43 AM CDT Merna Bell MD LAB BLOOD ORDERABLES Edited R esult - Final Performing Organization Address City/[facility]/ZIP Co de Phone Number [facility] Department [place] [address] * ALBUMIN / CREATININE URINE RATIO, RANDOM (12/03/2016 11:33 AM CDT) Pathologist [facility] Microalbumin, ur 20.6 mcg/mL [facility] Creatinine, ur 131.50 mg/dL [facility] Microalbumin/cr eat ratio 15.7 0.1 - 29.9 mcg/mg Cr [facility] Urine 12/03/2016 11:3 3 AM CDT 12/03/2016 11:50 AM CDT Merna Bell MD LAB BLOOD BANK TEST ORDERABLE S Final Result [facility] [place] [address] * PTH, intact (12/03/2016 11:33 AM CDT) PTH 57 15 - 65 pg/mL [facility] Blood specimen (specimen) 12/03/2016 11:33 AM CDT 12/03/2016 11:43 AM CDT Merna Bell MD LAB BLOOD ORDERABLES Final Re sult [facility] [place] [address] * (ABNORMAL) Renal function panel (12/03/2016 11:33 AM CDT) Pathologist [facility] Sodium 143 135 - 145 mmol/L [facility] Potassium, pl 4.2 3.3 - 4.9 mmol/L [facility] Chloride 109 97 - 110 mmol/L [facility] CO2 23 22 - 32 mmol/L [facility] Anion gap 11 2 - 15 mmol/L [facility] Glucose 130 70 - 199 mg/dL [facility] BUN 28(H) 8 - 25 mg/dL [facility] Creatinine 0.88 0.60 - 1.10 mg/dL [facility] Calcium 9.5 8.5 - 10.3 mg/dL [facility] Phosphorus, pl 4.2 2.3 - 4.5 mg/dL [facility] Albumin 4.2 3.5 - 5.0 g/dL [facility] Blood specimen (specimen) 12/03/2016 11:33 AM CDT 12/03/2016 11:43 AM CDT Merna Bell MD LAB BLOOD ORDERABLES Final Re sult [facility] [place] [address] * DISCHARGE LABORATORY CUMULATIVE REPORT (12/03/2016 12:00 AM CDT) Narrative 12/03/2016 12:00 AM CDT Ordered by an unspecified provider. Historical Provider LAB BLOOD ORDERABLES Phyllis l Result documented in this encounter Visit Diagnoses Not on filedocumented in this encounter Care Teams Paste Plant Supervisor Relationship Specialty Start Date End Date Joaquin Melchor MD [address] [place] [address] PCP - General 06/25/16 06/08/18 documented as of this encounter
--- OUTSIDE RECORDS SUMMARY | 2024-04-29 14:14 | XMS_ITS | Encounter Summary ---
Author Organization [facility] Address [address] [place] [address] Phone Care Team Providers Care Library Serials Assistant Name Role Phone Joaquin Melchor MD Primary Care Prov ider Encounter Details Date Type Department Care Team (Late st Contact Info) Description 01/20/2018 Telephone [facility] Endocrinology Metabolism and Lipid [address] [facility] Advanced Medicine 13th [place] [address] [place] [address] Merna Bell MD [address] [facility] [address] [place], [place] [id number] Social History Tobacco Use Types Packs/Day Years Used Date Smoking Tobacco: Never Comments Unknown Sex and Gender Information Value Date Recorded Sex Assigned at Not on file Legal Sex Female 3:59 AM APPLICATIONS SUPPORT LEAD Gender Identity Female 05/13/2021 4:21 PM APPLICATIONS SUPPORT LEAD Sexual Orientation Not on file documented as of this encounter Miscellaneous Notes * Telephone Encounter - Kasey Grimaldo MA - 01/20/2018 10:30 AM CDT Pt called stating that she had a cold an is having trouble getting her BS under 200, please call documented in this encounter Plan of Treatment Not on file documented as of this encounter Visit Diagnoses Not on filedocumented in this encounter Care Teams Library Serials Assistant Relationship Specialty Start Date End Date Joaquin Melchor MD [address] [place] [address] PCP - General 06/25/16 06/08/18 documented as of this encounter
--- OUTSIDE RECORDS SUMMARY | 2024-04-29 14:14 | XMS_ITS | Encounter Summary ---
Author Organization [facility] Address [address] [place] [address] Phone Care Team Providers Care Rope Walker Name Role Phone Joaquin Melchor MD Primary Care Prov ider Encounter Details Date Type Department Care Team (Latest Contact Info) Description 12/09/2017 9:40 AM CDT Office Visit [facility] Endocrinology Metabolism and Lipid [address] [facility] Medicine 13th [place] [address] [place] [address] Merna Bell MD [address] [facility] [address] [place] [address] 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, with long-term current use of insulin, unspecified laterality (CMS/HCC) (Primary Dx); Acquired hypothyroidism; Mixed hyperlipidemia Social History Tobacco Use Types Packs/Day Years Used Date Smoking Tobacco: Never Comments Unknown Sex and Gender Information Value Date Recorded Sex Assigned at Not on file Legal Sex Female 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 Gender Identity Female 05/13/2021 4:21 PM DICTATING MACHINE MECHANIC Sexual Orientation Not on file documented as of this encounter Last Filed Vital Signs Vital Sign Reading Time Taken Comments Blood Pressure 97/66 12/09/2017 9:40 AM CDT Pulse 70 12/09/2017 9:40 AM CDT Temperature - - Respiratory Rate - - Oxygen Saturation - - Inhaled Oxygen Concentration - - Weight 106.3 kg (234 lb 6.4 oz) 12/09/2017 9:40 AM CDT Height 154.9 cm (5' 1 ) 12/09/2017 9:40 AM CDT Body Mass Index 44.29 12/09/2017 9:40 AM CDT documented in this encounter Progress Notes * Merna Bell MD - 12/09/2017 9:40 AM CDT Isabelle Lutz is a 67 y.o. female who returns for follow up of her Type 2 diabetes, Hypothyroidism presenting for follow up of diabetes. Her A1c today is 7.9 and she is taking Lantus 45 units, Humalog 10-15 units with meals, missing occasional doses; metformin 500 mg BID, glimepiride 4 mg BID-she stopped nighttime dose for 1 month, but restarted due to AM hyperglycemia within a month but does not recall bg, Victoza 1.8 daily. She istesting 4X daily, finds values range from 45 - 311 mg/dl. She did not yet start CGM discussed at last visit. Diet: toast/eggs for AM, lunch-brunch only several days when not working, dinner-she has sandwich on Sat and , Saturday and Saturday-sandwich or fruit Hypoglycemia: once or twice per month to 60s and is symptomatic and awakened by her dog. Exercise-none due to knees, Weight-10 lbs due to inability to exercise. No vision, chest pain Optho: several years-no known retinopathy, prior glaucoma Neuropathy: none Nephropathy: prior CAD: none CVA:none Synthroid 88 mcg-she denies fatigue, cold intolerance. Physical Exam Constitutional: She is oriented to person, place, and time. She appears well- developed and well-nourished. HENT: Head: Normocephalic and atraumatic. Eyes: Pupils are equal, round, and reactive to light. Conjunctivae and EOM are normal. Neck: Normal range of motion. Neck supple. No thyromegaly present. Cardiovascular: Normal rate, regular rhythm and normal heart sounds. No murmur heard. Pulmonary/Chest: Effort normal and breath sounds normal. No respiratory distress. She has no wheezes. Abdominal: Soft. Bowel sounds are normal. She exhibits no distension. There is no tenderness. Musculoskeletal: She exhibits no edema, tenderness or deformity. Neurological: She is alert and oriented to person, place, and time. She displays normal reflexes. No cranial nerve deficit or sensory deficit. 2+ DTR, no tremors, sensation intact to touch bilaterally, normal monofilament Skin: Skin is warm and dry. No rash noted. No erythema. Psychiatric: She has a normal mood and affect. Judgment and thought content normal. No results found for this or any previous visit (from the past 24 hour(s)). Lab Results Component Value Date TSH 2.01 03/05/2017 FREET4 1.74 (H) 06/17/2016 No results found for: CORTISOL No results found for: CPEPTIDE Lab Results Component Value Date CHOL 210 (H) 06/18/2016 TRIG 390 (H) 06/18/2016 HDL 45 06/18/2016 LDL 87 06/18/2016 Lab Results Component Value Date PTH 57 12/03/2016 Assessment and Plan: Your diabetes control is improving with A1c 8.8 to 7.9, but we would recommendstarting you on the continuous glucose monitoring as you may have some degree of hypoglycemic unawareness and this would provide better idea of your blood glucose trends. You should continue your current diabetes regimen as you are currently on, but ensure you have a dilated eye exam this year. -Continue lantus 45 units, Humalog ac, glimepiride 4 mg twice daily, Metformin 500 mg BID, Victoza 1.8 mg daily -Continue synthroid 88 mcg daily -Will order continuous glucose monitor. -We will continue you on Hyzaar 100-25 mg daily for blood pressure control -Contine Zocor 40 mg nightly for cholesterol -Ensure you see the eye doctor -Labs: TSH, free T4, lipids, CMP Merna Bell MD 12/09/2017 10:14 AM documented in this encounter Plan of Treatment Not on file documented as of this encounter Results * CBC with auto [...] 10:42 AM CDT 12/09/2017 2:24 PM CDT us Merna Bell MD LAB BLOOD ORDERABLES Final Re sult [facility] * PTH, intact (12/09/2017 10:42 AM CDT) Parathyroid Hormone 46.1 15.0 - 65.0 pg/mL [facility] Blood specimen (specimen) 12/09/2017 10:42 AM CDT 12/09/2017 2:24 PM CDT Merna Bell MD LAB BLOOD ORDERABLES Final Re sult Performing Organization Address [facility] de Phone Number [facility] * Vitamin [...] ORDERABLES Final Re sult Performing Organization Address [facility] de Phone Number [facility] * T4, free (12/09/2017 10:42 AM CDT) Free T4 1.39 0.93 - 1.70 ng/dL [facility] Blood specimen (specimen) 12/09/2017 10:42 AM CDT 12/09/2017 2:24 PM CDT Merna Bell MD LAB BLOOD ORDERABLES Final Re sult Performing Organization Address [facility] de Phone Number [facility] * TSH (12/09/2017 10:42 AM CDT) TSH (Thyrotropin) 1.64 0.50 - 5.00 uIU/mL [facility] Blood specimen (specimen) 12/09/2017 10:42 AM CDT 12/09/2017 2:24 PM CDT Merna Bell MD LAB BLOOD ORDERABLES Final Re sult Performing Organization Address City/[facility]/ZIP Co de Phone Number [facility] * (ABNORMAL) Comprehensive metabolic panel (12/09/2017 10:42 AM CDT) Total Protein 6.9 6.1 - 8.4 g/dL [...] MD LAB BLOOD ORDERABLES Final Re sult [facility] documented in this encounter Visit Diagnoses Diagnosis 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, with long-term current use of insulin, unspecified laterality (HCC)- Primary Acquired hypothyroidism Unspecified hypothyroidism Mixed hyperlipidemia documented in this encounter Discontinued Medications Medication Sig Discontinue Reason Start Date End Da te ergocalciferol (VITAMIN D) 50,000 unit capsule TAKE ONE CAPSULE BY MOUTH ONCE EVERY WEEK Duplicate order 11/18/2017 12/09/2017 glimepiride (AMARYL) 4 mg tablet TAKE 1 TABLET BY MOUTH TWICE A DAY Duplicate order 11/15/2017 12/09/2017 levothyroxine (SYNTHROID, LEVOTHROID) 88 mcg tablet TAKE 1 TABLET BY MOUTH EVERY DAY Duplicate order 11/15/2017 12/09/2017 HYDROcodone-acetaminop hen (NORCO) 5-325 mg per tabletIndications:Pain TAKE 1 TABLET BY MOUTH EVERY 4-6 HOURS NEEDED FOR PAIN Discontinued by another clinician 06/25/2016 12/09/2017 documented as of this encounter Historical Medications * This list may reflect changes made after this encounter. ergocalciferol (VITAMIN D) 50,000 unit capsule TAKE ONE CAPSULE ONCE A WEEK 1 01/08/20 19 levothyroxine (SYNTHROID, LEVOTHROID) 88 mcg tablet daily. 5 02/13/20 18 glimepiride (AMARYL) 4 mg tabletIndicatio ns:type 2 diabetes mellitus TAKE 1 TABLET TWICE A DAY e11.9 6 02/14/20 18 liraglutide (VICTOZA 3-CRISTIANE) 0.6 mg/0.1 mL (18 mg/3 mL) injectionIndica tions:type 2 diabetes mellitus INJECT 1.8MG SUBCUTANEOUSLYDAILY 0 05/07/20 18 simvastatin (ZOCOR) 40 mg tablet TAKE 1 TABLET EVERY DAY 01/12 9 04/12/20 18 metFORMIN (GLUCOPHAGE) 500 mg tablet 2 times daily. 6 05/18/19 19 losartan-hydroc hlorothiazide (HYZAAR) 100-25 mg per tablet Take 1 tablet by mouth daily 6 04/14/20 18 latanoprost (XALATAN) 0.005 % ophthalmic solution 1 gtt to both eyes at bedtime 6 06/09/19 19 insulin glargine (LANTUS SOLOSTAR U-100 INSULIN) 100 unit/mL (3 mL) insulin pen daily. 7 05/07/20 18 HYDROcodone-moses taminophen (NORCO) 5-325 mg per tabletIndicatio ns:Pain TAKE 1 TABLET BY MOUTH EVERY 4-6 HOURS NEEDED FOR PAIN 7 12/10/19 18 blood glucose diagnostic (FREESTYLE LITE STRIPS) strip by in vitro route. 02/02/20 0 9 10/17/19 19 celecoxib (CeleBREX) 200 mg capsule daily. 6 05/20/19 19 pen needle, diabetic (BD ULTRA-FINE MINI PEN NEEDLE) 31 gauge x 3/16 needle Use one pen needle daily 4 06/16/19 19 insulin syringe needleless (BD INSULIN SYRINGE SLIP TIP) 1 mL syringe USE DAILY W/LANTUS 6 07/25/19 22 added in this encounter Care Teams Rope Walker Relationship Specialty Start Date End Date Joaquin Melchor MD [address] [place] [address] PCP - General 06/25/16 06/08/18 documented as of this encounter
--- OUTSIDE RECORDS SUMMARY | 2024-04-29 14:14 | XMS_ITS | Encounter Summary ---
Author Organization [facility] Address [address] [place] [address] Phone Care Team Providers Care Telemarketing Fundraiser Name Role Phone Joaquin Melchor MD Primary Care Prov ider Encounter Details Date Type Department Care Team (Late st Contact Info) Description 01/21/2018 Telephone [facility] Endocrinology Metabolism and Lipid [address] [facility] Advanced Medicine 13th [place] [address] [place] [address] Merna Bell MD [address] [facility] [address] [place], [place] [id number] Social History Tobacco Use Types Packs/Day Years Used Date Smoking Tobacco: Never Comments Unknown Sex and Gender Information Value Date Recorded Sex Assigned at Not on file Legal Sex Female 3:59 AM PERSONNEL ADVISER Gender Identity Female 05/13/2021 4:21 PM PERSONNEL ADVISER Sexual Orientation Not on file documented as of this encounter Miscellaneous Notes * Telephone Encounter - Kasey Grimaldo MA - 01/21/2018 10:27 AM CDT Pt called and wants to speak with you about a medication she was put on last night at the ER, she states that is could cause kidney failure and really wants to speak with you KIM before she takes it, please call [phone] documented in this encounter Plan of Treatment Not on file documented as of this encounter Visit Diagnoses Not on filedocumented in this encounter Care Teams Telemarketing Fundraiser Relationship Specialty Start Date End Date Joaquin Melchor MD [address] [place] [address] PCP - General 06/25/16 06/08/18 documented as of this encounter
--- OUTSIDE RECORDS SUMMARY | 2024-04-29 14:14 | XMS_ITS | Encounter Summary ---
Author Organization [facility] Address [address] [place] [address] Phone Care Team Providers Care Business Dean Name Role Phone Joaquin Melchor MD Primary Care Prov ider Encounter Details Date Type Department Care Team (Late st Contact Info) Description 12/09/[address] [facility] Endocrinology Metabolism and Lipid [address] [facility] Advanced [facility] 13th [place] [address] [place] [address] Merna Bell MD [address] [facility] [address] [place] [address] Social History Tobacco Use Types Packs/Day Years Used Date Smoking Tobacco: Never Comments Unknown Sex and Gender Information Value Date Recorded Sex Assigned at Not on file Legal Sex Female 3:[address] PROJECT MANAGER Gender Identity Female 05/13/2021 4:[address] PROJECT MANAGER Sexual Orientation Not on file documented as of this encounter Plan of Treatment Not on file documented as of this encounter Visit Diagnoses Not on filedocumented in this encounter Care Teams Business Dean Relationship Specialty Start Date End Date Joaquin Melchor MD [address] [place] [address] PCP - General 06/25/16 06/08/18 documented as of this encounter
--- OUTSIDE RECORDS SUMMARY | 2024-04-29 14:14 | XMS_ITS | Encounter Summary ---
Author Organization [facility] Address [address] [place] [address] Phone Care Team Providers Care Sonogram Technician Name Role Phone Joaquin Melchor MD Primary Care Prov ider Encounter Details Date Type Department Care Team (Late st Contact Info) Description 12/13/2017 Documentation [facility] Endocrinology Metabolism and Lipid [address] [facility] 5th [place] [address] [place] [address] Desiree Rodriguez MD [address] [facility] [address] [place], [place] [id number] Social History Tobacco Use Types Packs/Day Years Used Date Smoking Tobacco: Never Comments Unknown Sex and Gender Information Value Date Recorded Sex Assigned at Not on file Legal Sex Female 3:59 AM 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 She states this was only bc she was fasting all day for labs and is resolved. Cosigned by Merna Bell MD at 12/23/2017 6:27 PM CDT documented in this encounter Plan of Treatment Not on file documented as of this encounter Visit Diagnoses Not on filedocumented in this encounter Care Teams Sonogram Technician Relationship Specialty Start Date End Date Joaquin Melchor MD [address] [place] [address] PCP - General 06/25/16 06/08/18 documented as of this encounter
--- OUTSIDE RECORDS SUMMARY | 2024-04-29 14:14 | XMS_ITS | Encounter Summary ---
Author Organization [facility] Address [address] [place] [address] Care Team Providers Care Sales And Retail Management Recruiter Name Role Phone Joaquin Melchor MD Primary Care Prov ider Encounter Details Date Type Department Care Team (Latest Contact Info) Description 06/25/2016 2:35 PM TOOLMAKER HELPER - 06/25/2016 11:59 PM [facility] Hospital Encounter [facility] OP INTERIM [phone] Merna Bell MD [address] [facility] [address], [place] [address] Discharge Disposition: Discharge to home or self care Social History Tobacco Use Types Packs/Day Years Used Date Smoking Tobacco: Never Comments Unknown Sex and Gender Information Value Date Recorded Sex Assigned at Not on file Legal Sex Female 3:59 AM TOOLMAKER HELPER Gender Identity Female 05/13/2021 4:21 PM TOOLMAKER HELPER Sexual Orientation Not on file documented [...] NEEDED FOR PAIN 7 12/10/19 18 insulin lispro (HumaLOG KwikPen Insulin) 100 [...] on filedocumented in this encounter Care Teams Sales And Retail Management Recruiter Relationship Specialty Start Date End Date Joaquin Melchor MD [address] [place] [address] PCP - General 06/25/16 06/08/18 documented as of this encounter
--- OUTSIDE RECORDS SUMMARY | 2024-04-29 14:15 | XMS_ITS | Encounter Summary ---
Author Organization [facility] Facility Care Team Providers Care Real Estate Manager Name Role Phone Unavailable Primary Care Provider Unavailabl e Encounter Details Date Type Department Care Team (Late st Contact Info) Description 08/27/2006 - 08/27/2006 11:59 PM CDT Hospital Encounter [facility] Merna Vidal MD [address] [address] Social History Tobacco Use Types Packs/Day Years Used Date Smoking Tobacco: Never Assessed Comments Unknown Sex and Gender Information Value Date Recorded Sex Assigned at Not on file Legal Sex Female 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 02/19/2006 05/20/2018 glimepiride (AMARYL) 4 mg tabletIndications :type 2 diabetes mellitus TAKE 1 TABLET TWICE A DAY e11.9 02/19/2006 02/13/2018 losartan-hydrochl orothiazide (HYZAAR) 100-25 mg per tablet Take 1 tablet by mouth daily 02/19/2006 04/14/2018 metFORMIN (GLUCOPHAGE) 500 mg tablet 2 times daily. 02/19/2006 05/18/2018 documented as of this encounter Plan of Treatment Not on file documented as of this encounter Visit Diagnoses Not on filedocumented in this encounter
--- OUTSIDE RECORDS SUMMARY | 2024-04-29 14:15 | XMS_ITS | Encounter Summary ---
Author Organization [facility] Facility Care Team Providers Care Skip Loader Name Role Phone Unavailable Primary Care Provider Unavailabl e Encounter Details Date Type Department Care Team (Late st Contact Info) Description 06/19/2010 - 06/19/2010 11:59 PM PROTOTYPE TECHNICIAN Hospital Encounter [facility] Merna Vidal MD [address] [address] Type 2 or unspecified type diabetes mellitus; Other and unspecified hyperlipidemia; Vitamin D deficiency Social History Tobacco Use Types Packs/Day Years Used Date Smoking Tobacco: Never Assessed Comments Unknown Sex and Gender Information Value Date Recorded Sex Assigned at Not on file Legal Sex Female 3:59 AM PROTOTYPE TECHNICIAN Gender Identity Female 05/13/2021 4:21 PM PROTOTYPE TECHNICIAN Sexual Orientation Not on file documented as of this encounter Medications at Time of Discharge blood glucose diagnostic (FREESTYLE LITE STRIPS) strip by in vitro route. 02/02/20 0 9 10/17/19 19 celecoxib (CeleBREX) 200 mg capsule daily. 6 05/20/19 19 glimepiride (AMARYL) 4 mg tabletIndicatio ns:type [...] tablet 2 times daily. 6 05/18/19 19 simvastatin (ZOCOR) 40 mg tablet TAKE 1 TABLET EVERY DAY 01/12 9 04/12/20 18 documented as of this encounter Plan of Treatment Not on file documented as of this encounter Visit Diagnoses Diagnosis Type 2 or unspecified type diabetes mellitus Other and unspecified hyperlipidemia Vitamin D deficiency documented in this encounter
--- OUTSIDE RECORDS SUMMARY | 2024-04-29 14:15 | XMS_ITS | Encounter Summary ---
Author Organization [facility] Facility Care Team Providers Care Moulder Operator Name Role Phone Unavailable Primary Care Provider Unavailabl e Encounter Details Date Type Department Care Team (Late st Contact Info) Description 01/30/2011 - 01/30/2011 11:59 PM CDT Hospital Encounter [facility] Merna Vidal MD [address] [id number] Other screening mammogram Social History Tobacco Use Types Packs/Day Years Used Date Smoking Tobacco: Never Assessed Comments Unknown Sex and Gender Information Value Date Recorded Sex Assigned at Not on file Legal Sex Female 3:59 AM SED HIGH SCHOOL 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
--- OUTSIDE RECORDS SUMMARY | 2024-04-29 14:15 | XMS_ITS | Encounter Summary ---
Author Organization [facility] Facility Care Team Providers Care Wrist Closer Name Role Phone Unavailable Primary Care Provider Unavailabl e Encounter Details Date Type Department Care Team (Late st Contact Info) Description 07/14/2012 - 07/14/2012 11:59 PM CLIENT MANAGER [employer] Hospital Encounter [facility] Eloisa Crouch MD [address] [id number] Actinic keratosis Social History Tobacco Use Types Packs/Day Years Used Date Smoking Tobacco: Never Assessed Comments Unknown Sex and Gender Information Value Date Recorded Sex Assigned at Not on file Legal Sex Female 3:59 AM CLIENT MANAGER [employer] Gender Identity Female 05/13/2021 4:21 PM CLIENT MANAGER [employer] Sexual Orientation Not on file documented as [...] Procedure Name Priority Date/Time Associated Diagnosis Comments SURGICAL PATHOLOGY 07/14/2012 documented in this encounter Results * Surgical pathology (07/14/2012) Narrative 07/14/2012 Ordered by an unspecified provider. Historical Provider LAB PATHOLOGY ORDERABLES Final Result documented in this encounter Visit Diagnoses Diagnosis Actinic keratosis documented in this encounter
--- OUTSIDE RECORDS SUMMARY | 2024-04-29 14:15 | XMS_ITS | Encounter Summary ---
Author Organization [facility] Facility Care Team Providers Care Dock Superintendent Name Role Phone Unavailable Primary Care Provider Unavailabl e Encounter Details Date Type Department Care Team (Late st Contact Info) Description 07/08/2012 - 05/12/2013 11:59 PM RN ACUTE DIALYSIS Hospital Encounter [facility] Social History Tobacco Use Types Packs/Day Years Used Date Smoking Tobacco: Never Comments Unknown Sex and Gender Information Value Date Recorded Sex Assigned at Not on file Legal Sex Female 3:59 AM RN ACUTE DIALYSIS Gender Identity Female 05/13/2021 4:21 PM RN ACUTE DIALYSIS Sexual Orientation Not on file documented as [...] Procedure Name Priority Date/Time Associated Diagnosis Comments DISCHARGE LABORATORY CUMULATIVE REPORT Routine 07/08/2012 5:10 AM RN ACUTE DIALYSIS BLOOD CELL COUNT (CBC) Routine 07/07/2012 5:17 PM RN ACUTE DIALYSIS documented in this encounter Results * Discharge Laboratory Cumulative Report (07/08/2012 5:10 AM RN ACUTE DIALYSIS) 07/08/2012 5:10 AM RN ACUTE DIALYSIS Narrative HISTORICAL RESULTS - 07/08/2012 5:10 AM RN ACUTE DIALYSIS ? [facility] ? Department of Laboratories ?[facility] [address] ?Core Lab for Clinical ?Studies ?[place] [facility] [employer] [id number] ?[id number] ?[place] [address] Patient Name: ? LEVON FIGUEREDO Med Rec Number: ?? [id number] Date of : ?1950 Gender/Age: ? Female 62 years Doctor: ? Markie Vicente M.D. Report Date/Time: 07/08/2012 5:10:02 PM ?* Abnormal ??C Critical ??f Footnote ??^ Corrected ??L Low ??H High ?i Interp Data ??@ Reference Lab ?Chart Type: Cumulative ?HEMATOLOGY ?Standard Hematology ?07/07/2012 ?17:17:00 Test ?Units ?? Reference WBC ? 9.6 ? K/cumm ??3.8-9.8 RBC ? 4.42 ?M/cumm ??3.90-5.00 Hgb ? 13.1 ?g/dL ?12.1-15.1 Hct ? 39.8 ?% ? 36.1-44.[address] ? 216 ? K/cumm ??140-440 MCV ? 90.1 ?fL ?80.0-97.6 MCH ? 29.8 ?pg ?26.7-33.7 MCHC ?33.1 ?g/dL ?32.7-35.5 RDW ? 12.6 ?% ? 11.8-14.6 MPV ? 10.3 ?fL ?6.8-10.4 Neut Pct Auto ?? 64.6 ?% ? 38.7-74.5 Lymph Pct Auto ??29.4 ?% ? 20.0-54.3 Whitman Pct Auto ?? 4.6 ? % ? 4.3-13.5 Eos Pct Auto ?0.8 ? % ? 0.0-6.0 Baso Pct Auto ?? 0.6 ? % ? 0.0-3.0 Neut Abs Auto ?? 6.2 ? K/cumm ??1.8-6.6 Lymph Abs Auto ??2.8 ? K/cumm ??1.2-3.3 Whitman Abs Auto ?? 0.4 ? K/cumm ??0.2-1.2 Eos Abs Auto ?0.1 ? K/cumm ??0.0-0.5 Baso Abs Auto ?? 0.1 ? K/cumm ??0.0-0.2 us Historical Provider LAB BLOOD ORDERABLES Phyllis l Result HISTORICAL RESULTS * Blood cell count (CBC) (07/07/2012 5:17 PM RN ACUTE DIALYSIS) WBC 9.6 3.8 - 9.8 K/cumm HISTORICAL RESULTS RBC 4.42 3.90 - 5.00 M/cumm HISTORICAL RESULTS Hgb 13.1 12.1 - 15.1 g/dl HISTORICAL RESULTS Hct 39.8 36.1 - 44.3 % HISTORICAL RESULTS MCV 90.1 80.0 - 97.6 fl HISTORICAL RESULTS MCH 29.8 26.7 - 33.7 pg HISTORICAL RESULTS MCHC 33.1 32.7 - 35.5 g/dl HISTORICAL RESULTS Rdw 12.6 11.8 - 14.6 % HISTORICAL RESULTS Platelets 216 140 - 440 K/cumm HISTORICAL RESULTS MPV 10.3 6.8 - 10.4 fl HISTORICAL RESULTS Neutrophils 64.6 38.7 - 74.5 % HISTORICAL RESULTS Lymphocytes 29.4 20.0 - 54.3 % HISTORICAL RESULTS Monos 4.6 4.3 - 13.5 % HISTORICAL RESULTS Eosinophils 0.8 0.0 - 6.0 % HISTORICAL RESULTS Basophils 0.6 0.0 - 3.0 % HISTORICAL RESULTS Neutrophils, abs 6.2 1.8 - 6.6 K/cumm HISTORICAL RESULTS Lymphocytes, abs 2.8 1.2 - 3.3 K/cumm HISTORICAL RESULTS Monocytes, absolute 0.4 0.2 - 1.2 K/cumm HISTORICAL RESULTS Eosinophils, abs 0.1 0.0 - 0.5 K/cumm HISTORICAL RESULTS Basophils, abs 0.1 0.0 - 0.2 K/cumm HISTORICAL RESULTS Blood specimen (specimen) 07/07/2012 5:17 PM RN ACUTE DIALYSIS us Markie Vicente Jr., MD LAB BLOOD ORDERABLES Final Result HISTORICAL RESULTS documented in this encounter Visit Diagnoses Not on filedocumented in this encounter
--- OUTSIDE RECORDS SUMMARY | 2024-04-29 14:15 | XMS_ITS | Encounter Summary ---
Author Organization [facility] Facility Care Team Providers Care Logging Crew Foreman Name Role Phone Unavailable Primary Care Provider Unavailabl e Encounter Details Date Type Department Care Team (Late st Contact Info) Description 07/31/2006 9:46 AM CDT - 08/01/2006 7:18 PM CDT Hospital Encounter [facility] Vincent Ratliff MD [address] [place] [address] Social History Tobacco Use Types Packs/Day Years Used Date Smoking Tobacco: Never Assessed Comments Unknown Sex and Gender Information Value Date Recorded Sex Assigned at Not on file Legal Sex Female 3:59 AM TUBING DRIER Gender Identity Female 05/13/2021 4:21 PM TUBING DRIER Sexual Orientation Not on file documented as [...]
--- OUTSIDE RECORDS SUMMARY | 2024-04-29 14:15 | XMS_ITS | Encounter Summary ---
Author Organization [facility] Facility Care Team Providers Care Key Filer Name Role Phone Unavailable Primary Care Provider Unavailabl e Encounter Details Date Type Department Care Team (Late st Contact Info) Description 01/04/2015 9:52 AM CDT - 01/04/2015 4:00 PM CDT Hospital Encounter [facility] Madalyn Teresa, ASE MASTER MECHANIC [address] [place] [address] Pain in joint, lower leg Social History Tobacco Use Types Packs/Day Years Used Date Smoking Tobacco: Never Comments Unknown Sex and Gender Information Value Date Recorded Sex Assigned at Not on file Legal Sex Female 3:59 AM 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 [...] ULTRA-FINE MINI PEN NEEDLE) 31 gauge x 07/26 needle Use one pen needle daily 4 06/16/19 19 simvastatin (ZOCOR) 40 mg tablet TAKE 1 TABLET EVERY DAY 01/12 9 04/12/20 18 documented as of this encounter Plan of Treatment Not on file documented as of this encounter Procedures Procedure Name Priority Date/Time Associated Diagnosis Comments KNEE RADIOGRAPHY, FRONTAL (AP), LATERAL, OBLIQUE Routine 01/04/2015 10:14 AM CDT KNEE RADIOGRAPHY, FRONTAL (AP), LATERAL, OBLIQUE Routine 01/04/2015 10:14 AM CDT documented in this encounter Results * KNEE RADIOGRAPHY, FRONTAL (AP), LATERAL, OBLIQUE (01/04/2015 10:14 AM CDT) Anatomical Region Laterality Modality N/A Radiographic Luba ging 01/04/2015 10:1 4 AM CDT Narrative 01/04/2015 10:18 AM CDT MACIE RUTLEDGE M.D. F FINAL REPORT ACC# ??Date Time ??Exam [id number] Jan 04, 2015 10:14:00 17235 Knee 3 views R [id number] Jan 04, 2015 10:14:00 [id number] Knee 3 views L EXAMINATION: ? 1. Left knee 3 views. 2. Right knee 3 views. HISTORY: ??Bilateral knee osteoarthritis FINDINGS: ?? Three views of each knee are submitted for interpretation without comparison. There is severe bilateral medial compartment predominant tricompartmental knee osteoarthritis with small bilateral knee effusions. No fracture is seen in either knee. There are atherosclerotic vascular calcifications. IMPRESSION: ?? Severe medial compartment predominant tricompartmental knee osteoarthritis bilaterally. Requested By: MADALYN TERESA Dictated By: ?? MACIE RUTLEDGE M.D. F ??on Jan 04 2015 10:18A This document has been electronically signed by: Nahid PETERSON on Jan 04 2015 10:18A [id number] Procedure Note Provider, Aldair, - 09/07/2016 Nahid PETERSON FINAL REPORT ACC# Date Time Exam [id number] Jan 04, 2015 10:14:00 17816 Knee 3 views R [id number] Jan 04, 2015 10:14:00 69224 Knee 3 views L EXAMINATION: 1. Left knee 3 views. 2. Right knee 3 views. HISTORY: Bilateral knee osteoarthritis FINDINGS: Three views of each knee are submitted for interpretation without comparison. There is severe bilateral medial compartment predominant tricompartmental knee osteoarthritis with small bilateral knee effusions. No fracture is seen in either knee. There are atherosclerotic vascular calcifications. IMPRESSION: Severe medial compartment predominant tricompartmental knee osteoarthritis bilaterally. Requested By: MADALYN TERESA Dictated By: Nahid PETERSON on Jan 04 2015 10:18A This document has been electronically signed by: Nahid PETERSON on Jan 04 2015 10:18A [id number] us Historical Provider IMG XR PROCEDURES Final R esult * KNEE RADIOGRAPHY, FRONTAL (AP), LATERAL, OBLIQUE (01/04/2015 10:14 AM CDT) Anatomical Region Laterality Modality N/A Radiographic Luba ging 01/04/2015 10:1 4 AM CDT Narrative 01/04/2015 10:18 AM CDT Nahid PETERSON FINAL REPORT ACC# ??Date Time ??Exam [id number] Jan 04, 2015 10:14:00 63032 Knee 3 views R [id number] Jan 04, 2015 10:14:00 64443 Knee 3 views L EXAMINATION: ? 1. Left knee 3 views. 2. Right knee 3 views. HISTORY: ??Bilateral knee osteoarthritis FINDINGS: ?? Three views of each knee are submitted for interpretation without comparison. There is severe bilateral medial compartment predominant tricompartmental knee osteoarthritis with small bilateral knee effusions. No fracture is seen in either knee. There are atherosclerotic vascular calcifications. IMPRESSION: ?? Severe medial compartment predominant tricompartmental knee osteoarthritis bilaterally. Requested By: MADALYN TERESA Dictated By: ?? Nahid PETERSON ??on Jan 04 2015 10:18A This document has been electronically signed by: Nahid PETERSON on Jan 04 2015 10:18A [id number] Procedure Note Provider, Aldair, - 09/07/2016 Nahid PETERSON FINAL REPORT ACC# Date Time Exam [id number] Jan 04, 2015 10:14:00 96911 Knee 3 views R [id number] Jan 04, 2015 10:14:00 [id number] Knee 3 views L EXAMINATION: 1. Left knee 3 views. 2. Right knee 3 views. HISTORY: Bilateral knee osteoarthritis FINDINGS: Three views of each knee are submitted for interpretation without comparison. There is severe bilateral medial compartment predominant tricompartmental knee osteoarthritis with small bilateral knee effusions. No fracture is seen in either knee. There are atherosclerotic vascular calcifications. IMPRESSION: Severe medial compartment predominant tricompartmental knee osteoarthritis bilaterally. Requested By: MADALYN TERESA Dictated By: Nahid PETERSON on Jan 04 2015 10:18A This document has been electronically signed by: Nahid PETERSON on Jan 04 2015 10:18A [id number] us Historical Provider IMHenna XR PROCEDURES Final R esult documented in this encounter Visit Diagnoses Diagnosis Pain in joint, lower leg documented in this encounter
--- OUTSIDE RECORDS SUMMARY | 2024-04-29 14:15 | XMS_ITS | Encounter Summary ---
Author Organization [facility] Facility Care Team Providers Care Shoe Stamper Name Role Phone Unavailable Primary Care Provider Unavailabl e Encounter Details Date Type Department Care Team (Late st Contact Info) Description 02/25/2007 - 02/25/2007 11:59 PM CDT Hospital Encounter [facility] Merna Vidal MD [address] [address] Social History Tobacco Use Types Packs/Day Years Used Date Smoking Tobacco: Never Assessed Comments Unknown Sex and Gender Information Value Date Recorded Sex Assigned at Not on file Legal Sex Female 3:59 AM GLOVE STITCHER Gender Identity Female 05/13/2021 4:21 PM GLOVE STITCHER Sexual Orientation Not on file documented [...]
--- OUTSIDE RECORDS SUMMARY | 2024-04-29 14:15 | XMS_ITS | Encounter Summary ---
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
--- OUTSIDE RECORDS SUMMARY | 2024-04-29 14:15 | XMS_ITS | Encounter Summary ---
Author Organization [facility] Facility Care Team Providers Care Manager Wound Care Name Role Phone Unavailable Primary Care Provider Unavailabl e Encounter Details Date Type Department Care Team (Late st Contact Info) Description 06/15/2008 - 06/15/2008 11:59 PM PERINATAL DIRECTOR Hospital Encounter [facility] Merna Vidal MD [address] [address] Type 2 or unspecified type diabetes mellitus; Essential hypertension; Other and unspecified hyperlipidemia Social History Tobacco Use Types Packs/Day Years Used Date Smoking Tobacco: Never Assessed Comments Unknown Sex and Gender Information Value Date Recorded Sex Assigned at Not on file Legal Sex Female 3:59 AM PERINATAL DIRECTOR Gender Identity Female 05/13/2021 4:21 PM PERINATAL DIRECTOR Sexual Orientation Not on file documented [...] Type 2 or unspecified type diabetes mellitus Essential hypertension Unspecified essential hypertension Other and unspecified hyperlipidemia documented in this encounter
--- OUTSIDE RECORDS SUMMARY | 2024-04-29 14:15 | XMS_ITS | Encounter Summary ---
Author Organization [facility] Facility Care Team Providers Care Service Director Name Role Phone Unavailable Primary Care Provider Unavailabl e Encounter Details Date Type Department Care Team (Latest Contact Info) Description 06/18/2016 12:17 AM WARP DOFFER - 06/19/2016 1:37 PM WARP DOFFER Hospital Encounter [facility] Denzel Wasserman MD [address] [facility] [address] [place] [address] Chondrocostal junction syndrome; Acute kidney failure (CMS/HCC); Hyperkalemia; Zoster without complications; Type 2 diabetes mellitus without complications (CMS/HCC); MCC current use of insulin (CMS/HCC); Hypothyroidism; Hyperlipidemia; Essential (primary) hypertension; Glaucoma; Abnormality of gait and mobility; 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; Family history of ischemic heart disease and other diseases of the circulatory system; Family history of diabetes mellitus Social History Tobacco Use Types Packs/Day Years Used Date Smoking Tobacco: Never Comments Unknown Sex and Gender Information Value Date Recorded Sex Assigned at Not on file Legal Sex Female 3:59 AM WARP DOFFER Gender Identity Female 05/13/2021 4:21 PM WARP DOFFER Sexual Orientation Not on file documented as of this encounter Last Filed Vital Signs Vital Sign Reading Time Taken Comments Blood Pressure 144/61 06/19/2016 7:50 AM WARP DOFFER Pulse 94 06/19/2016 7:50 AM WARP DOFFER Temperature - - Respiratory Rate - - Oxygen Saturation 97% 06/19/2016 7:50 AM WARP DOFFER Inhaled Oxygen Concentration - - Weight 104.8 kg (231 lb 1.4 oz) 06/18/2016 3:00 AM WARP DOFFER Height 152.4 cm (5') 06/18/2016 12:22 AM WARP DOFFER Body Mass Index 45.13 06/18/2016 12:22 AM WARP DOFFER documented in this encounter Medications at Time [...] TWICE A DAY e11.9 6 02/14/20 18 insulin syringe needleless (BD INSULIN SYRINGE SLIP [...] ULTRA-FINE MINI PEN NEEDLE) 31 gauge x /16 needle Use one pen needle daily 4 06/16/19 19 simvastatin (ZOCOR) 40 mg tablet TAKE 1 TABLET EVERY DAY 01/12 9 04/12/20 18 documented as of this encounter Plan of Treatment Not on file documented as of this encounter Procedures Procedure Name Priority Date/Time Associated Diagnosis Comments BLOOD GLUCOSE, POC Routine 06/19/2016 11 :59 AM WARP DOFFER PLASMA BASIC METABOLIC PANEL Routine 06/19/2016 11:54 AM WARP DOFFER BLOOD GLUCOSE, POC Routine 06/19/2016 6: 47 AM WARP DOFFER URINE SODIUM Routine 06/19/2016 6:32 AM WARP DOFFER URINE POTASSIUM Routine 06/19/2016 6:32 AM WARP DOFFER URINE CHLORIDE Routine 06/19/2016 6:32 AM WARP DOFFER PLASMA BASIC METABOLIC PANEL Routine 06/19/2016 6:32 AM WARP DOFFER ELECTROCARDIOGRAPHY (ECG) 06/19/2016 ELECTROCARDIOGRAPHY (ECG) 06/19/2016 DISCHARGE LABORATORY CUMULATIVE REPORT 06/19/2016 SERUM TROPONIN I Routine 06/18/2016 9:45 PM WARP DOFFER BLOOD GLUCOSE, POC Routine 06/18/2016 7: 58 PM WARP DOFFER BLOOD GLUCOSE, POC Routine 06/18/2016 5: 25 PM WARP DOFFER PLASMA PARTIAL THROMBOPLASTIN TIME (PTT) Routine 06/18/2016 1:48 PM WARP DOFFER URINE CREATININE Routine 06/18/2016 1:38 PM WARP DOFFER SERUM TROPONIN I Routine 06/18/2016 1:38 PM WARP DOFFER PLASMA BASIC METABOLIC PANEL Routine 06/18/2016 1:38 PM WARP DOFFER BLOOD GLUCOSE, POC Routine 06/18/2016 11 :36 AM WARP DOFFER US RETROPERITONEAL COMPLETE Routine 06/18/2016 8:56 AM WARP DOFFER BLOOD GLUCOSE, POC Routine 06/18/2016 6: 52 AM WARP DOFFER URINE MICROSCOPY Routine 06/18/2016 3:53 AM WARP DOFFER URINALYSIS Routine 06/18/2016 3:53 AM WARP DOFFER BLOOD GLUCOSE, POC Routine 06/18/2016 3: 52 AM WARP DOFFER SERUM TROPONIN I Routine 06/18/2016 3:44 AM WARP DOFFER SERUM LIPID PANEL Routine 06/18/2016 3:4 4 AM WARP DOFFER SERUM IRON PROFILE Routine 06/18/2016 3: 44 AM WARP DOFFER SERUM FERRITIN Routine 06/18/2016 3:44 AM WARP DOFFER SERUM CREATINE KINASE (CK) Routine 06/18 3:44 AM WARP DOFFER PLASMA PROTHROMBIN TIME (PT) Routine 06/18/2016 3:44 AM WARP DOFFER PLASMA PARTIAL THROMBOPLASTIN TIME (PTT) Routine 06/18/2016 3:44 AM WARP DOFFER PLASMA BASIC METABOLIC PANEL Routine 06/18/2016 3:44 AM WARP DOFFER BLOOD HEMOGLOBIN A1C Routine 06/18/2016 3:44 AM WARP DOFFER BLOOD CELL COUNT Routine 06/18/2016 3:44 AM WARP DOFFER BLOOD CELL COUNT Routine 06/18/2016 3:44 AM WARP DOFFER BLOOD B-TYPE NATRIURETIC PEPTIDE (BNP) Routine 06/18/2016 3:44 AM WARP DOFFER BLOOD GLUCOSE, POC Routine 06/18/2016 12 :37 AM WARP DOFFER ELECTROCARDIOGRAPHY (ECG) 06/18/2016 ELECTROCARDIOGRAPHY (ECG) 06/18/2016 STRESS TEST ONLY, DOBUTAMINE 06/18/2016 BLOOD GLUCOSE, POC Routine 06/17/2016 11 :58 PM WARP DOFFER BLOOD GLUCOSE, POC Routine 06/17/2016 10 :16 PM WARP DOFFER BLOOD GLUCOSE, POC Routine 06/17/2016 8: 16 PM WARP DOFFER PLASMA PROTHROMBIN TIME (PT) Routine 06/17/2016 6:42 PM WARP DOFFER PLASMA PARTIAL THROMBOPLASTIN TIME (PTT) Routine 06/17/2016 6:42 PM WARP DOFFER XR CHEST PA LATERAL 2 VIEWS Routine 06/17/2016 4:32 PM WARP DOFFER SERUM TROPONIN I Routine 06/17/2016 4:19 PM WARP DOFFER SERUM THYROXINE (T4), FREE Routine 06/17 4:19 PM WARP DOFFER SERUM THYROID-STIMULATING HORMONE (TSH) Routine 06/17/2016 4:19 PM WARP DOFFER SERUM MAGNESIUM Routine 06/17/2016 4:19 PM WARP DOFFER PLASMA PHOSPHORUS Routine 06/17/2016 4:1 9 PM WARP DOFFER PLASMA HEPATIC FUNCTION PANEL Routine 06/17/2016 4:19 PM WARP DOFFER PLASMA BASIC METABOLIC PANEL Routine 06/17/2016 4:19 PM WARP DOFFER BLOOD CELL COUNT (CBC) Routine 7 4:19 PM WARP DOFFER BLOOD CELL MORPHOLOGIC EXAM Routine 06/17/2016 4:19 PM WARP DOFFER BLOOD GLUCOSE, POC Routine 06/17/2016 4: 00 PM WARP DOFFER documented in this encounter Results * (ABNORMAL) Blood glucose, POC (06/19/2016 11:59 AM WARP DOFFER) Glucose, POC, bld 287(H) 70 - 199 mg/dl CDR HISTORICAL RESULTS Blood specimen (specimen) 06/19/2016 11:59 AM WARP DOFFER Denzel Mathews MD LAB BLOOD ORDERABLES Final Result Performing Organization Address [facility] de Phone Number CDR HISTORICAL RESULTS * (ABNORMAL) Plasma basic metabolic panel (06/19/2016 11:54 AM WARP DOFFER) Sodium 137 135 - 145 mmol/L CDR HISTORICAL RESULTS K, pl 4.9 3.3 - 4.9 mmol/L CDR HISTORICAL RESULTS Chloride 103 97 - 110 mmol/L CDR HISTORICAL RESULTS CO2 20(L) 22 - 32 mmol/L CDR HISTORICAL RESULTS BUN 49(H) 8 - 25 mg/dl CDR HISTORICAL RESULTS Glucose 324(H) 70 - 199 mg/dl CDR HISTORICAL RESULTS Creatinine 2.07(H) 0.60 - 1.10 mg/dl CDR HISTORICAL RESULTS Calcium 10.0 8.5 - 10.3 mg/dl CDR HISTORICAL RESULTS A. gap 14 2 - 15 mmol/L CDR HISTORICAL RESULTS Plasma 06/19/2016 11:5 4 AM WARP DOFFER Umer Delacruz MD LAB BLOOD ORDERABLES Final Result Performing Organization Address [facility] de Phone Number CDR HISTORICAL RESULTS * Blood glucose, POC (06/19/2016 6:47 AM WARP DOFFER) Glucose, POC, bld 169 70 - 199 mg/dl CDR HISTORICAL RESULTS Blood specimen (specimen) 06/19/2016 6:47 AM WARP DOFFER Denzel Mathews MD LAB BLOOD ORDERABLES Final Result Performing Organization Address [facility] Co de Phone Number CDR HISTORICAL RESULTS * (ABNORMAL) Plasma basic metabolic panel (06/19/2016 6:32 AM WARP DOFFER) Sodium 145 135 - 145 mmol/L CDR HISTORICAL RESULTS K, pl 5.1(H) 3.3 - 4.9 mmol/L CDR HISTORICAL RESULTS Comment: Hemolyzed; (++); potassium value may be falsely elevated by as much as 0.3 - 0.5 mmol/L. Suggest redraw and reanalysis. Chloride 115(H) 97 - 110 mmol/L CDR HISTORICAL RESULTS CO2 11(L) 22 - 32 mmol/L CDR HISTORICAL RESULTS BUN 44(H) 8 - 25 mg/dl CDR HISTORICAL RESULTS Glucose 149 70 - 199 mg/dl CDR HISTORICAL RESULTS Creatinine 1.94(H) 0.60 - 1.10 mg/dl CDR HISTORICAL RESULTS Calcium 8.9 8.5 - 10.3 mg/dl CDR HISTORICAL RESULTS A. gap 19(H) 2 - 15 mmol/L CDR HISTORICAL RESULTS Plasma 06/19/2016 6:32 AM WARP DOFFER Lee Ann Lyn MD PhD LAB BLOOD ORDERAB LES Final Result Performing Organization Address [facility] Co de Phone Number CDR HISTORICAL RESULTS * Urine sodium (06/19/2016 6:32 AM WARP DOFFER) Sodium, ur 98 mmol/L CDR HISTO RICAL RESULTS Urine 06/19/2016 6:32 AM WARP DOFFER Result [facility] Umer Delacruz MD LAB BLOOD ORDERABLES Final Result Performing Organization Address [facility] Co de Phone Number CDR HISTORICAL RESULTS * Urine potassium (06/19/2016 6:32 AM WARP DOFFER) Potassium, ur 22 mmol/L CDR HI STORICAL RESULTS Urine 06/19/2016 6:32 AM WARP DOFFER Umer Delacruz MD LAB BLOOD ORDERABLES Final Result Performing Organization Address [facility]/ZIP Co de Phone Number CDR HISTORICAL RESULTS * Urine chloride (06/19/2016 6:32 AM WARP DOFFER) Chloride, ur 86 mmol/L CDR HIS TORICAL RESULTS Urine 06/19/2016 6:32 AM WARP DOFFER Result [facility] Umer Delacruz MD LAB BLOOD ORDERABLES Final Result Performing Organization Address [facility] Co de Phone Number CDR HISTORICAL RESULTS * DISCHARGE LABORATORY CUMULATIVE REPORT (06/19/2016) Narrative 06/19/2016 Ordered by an unspecified provider. Result [facility] Historical Provider LAB BLOOD ORDERABLES Phyllis l Result * ELECTROCARDIOGRAPHY (ECG) (06/19/2016) Narrative 06/19/2016 Ordered by an unspecified provider. Result [facility] Provider ECG ORDERABLES Final Res ult * ELECTROCARDIOGRAPHY (ECG) (06/19/2016) Narrative 06/19/2016 Ordered by an unspecified provider. Result [facility] Provider ECG ORDERABLES Final Res ult * (ABNORMAL) Serum troponin I (06/18/2016 9:45 PM WARP DOFFER) Troponin I 0.05(H) 0.00 - 0.03 ng/ml CDR HISTORICAL RESULTS Comment: Interpretive Data Serial determinations are recommended for the diagnosis of myocardial infarction (Third [place] Definition of Myocardial Infarction. ??J Am Remi Cardiol 2012;60:1581-98). Current interpretive data was last revised on 13. Serum 06/18/2016 9:45 PM WARP DOFFER Result [facility] Umer Delacruz MD LAB BLOOD ORDERABLES Final Result Performing Organization Address [facility] de Phone Number CDR HISTORICAL RESULTS * (ABNORMAL) Blood glucose, POC (06/18/2016 7:58 PM WARP DOFFER) Glucose, POC, bld 242(H) 70 - 199 mg/dl CDR HISTORICAL RESULTS Blood specimen (specimen) 06/18/2016 7:58 PM WARP DOFFER Result [facility] Denzel Mathews MD LAB BLOOD ORDERABLES Final Result Performing Organization Address [facility] Co de Phone Number CDR HISTORICAL RESULTS * Blood glucose, POC (06/18/2016 5:25 PM WARP DOFFER) Glucose, POC, bld 148 70 - 199 mg/dl CDR HISTORICAL RESULTS Blood specimen (specimen) 06/18/2016 5:25 PM WARP DOFFER Result [facility] Denzel Mathews MD LAB BLOOD ORDERABLES Final Result Performing Organization Address [facility] Phone Number CDR HISTORICAL RESULTS * (ABNORMAL) Plasma partial thromboplastin time (PTT) (06/18/2016 1:48 PM WARP DOFFER) [facility] APTT 75.3(H) 25.0 - 37.0 seconds [facility] HISTORICAL RESULTS Comment: Interpretive Data Therapeutic heparin range:60.0 - 94.0 sec based on correlation with therapeutic heparin activity range of 0.3 -0.7 Units/mL. Current interpretive data was last revised on 2011. Plasma 06/18/2016 1:48 PM WARP DOFFER Result [facility] Eddie Romero MD PhD LAB BLOOD ORDERABLES Final Result Performing Organization Address [facility] Phone Number [facility] HISTORICAL RESULTS * (ABNORMAL) Plasma basic metabolic panel (06/18/2016 1:38 PM WARP DOFFER) [facility] Sodium 140 135 - 145 mmol/L CDR HISTORICAL RESULTS K, pl 4.5 3.3 - 4.9 mmol/L CDR HISTORICAL RESULTS Chloride 107 97 - 110 mmol/L CDR HISTORICAL RESULTS CO2 20(L) 22 - 32 mmol/L CDR HISTORICAL RESULTS BUN 52(H) 8 - 25 mg/dl CDR HISTORICAL RESULTS Glucose 84 70 - 199 mg/dl CDR HISTORICAL RESULTS Creatinine 2.66(H) 0.60 - 1.10 mg/dl CDR HISTORICAL RESULTS Calcium 9.8 8.5 - 10.3 mg/dl CDR HISTORICAL RESULTS A. gap 13 2 - 15 mmol/L CDR HISTORICAL RESULTS Plasma 06/18/2016 1:38 PM WARP DOFFER Result [facility] Eddie Romero MD PhD LAB BLOOD ORDERABLES Final Result Performing Organization Address [facility] de Phone Number CDR HISTORICAL RESULTS * (ABNORMAL) Serum troponin I (06/18/2016 1:38 PM WARP DOFFER) Troponin I 0.05(H) 0.00 - 0.03 ng/ml CDR HISTORICAL RESULTS Comment: Interpretive Data Serial determinations are recommended for the diagnosis of myocardial infarction (Third [place] Definition of Myocardial Infarction. ??J Am Remi Cardiol 2012;60:1581-98). Current interpretive data was last revised on 13. Serum 06/18/2016 1:38 PM WARP DOFFER us Eddie Romero MD PhD LAB BLOOD ORDERABLES Final Result Performing Organization Address [facility] Phone Number CDR HISTORICAL RESULTS * Urine creatinine (06/18/2016 1:38 PM WARP DOFFER) Creatinine, ur 32 mg/dl CDR H ISTORICAL RESULTS Urine 06/18/2016 1:38 PM WARP DOFFER Umer Delacruz MD LAB BLOOD ORDERABLES Final Result Performing Organization Address [facility] de Phone Number CDR HISTORICAL RESULTS * Blood glucose, POC (06/18/2016 11:36 AM WARP DOFFER) Glucose, POC, bld 138 70 - 199 mg/dl CDR HISTORICAL RESULTS Blood specimen (specimen) 06/18/2016 11:36 AM WARP DOFFER Denzel Mathews MD LAB BLOOD ORDERABLES Final Result Performing Organization Address [facility] de Phone Number CDR HISTORICAL RESULTS * US Retroperitoneal Complete (06/18/2016 8:56 AM WARP DOFFER) Anatomical Region Laterality Modality Abdomen N/A Ultrasound 06/18/2016 8:56 AM WARP DOFFER Narrative 06/18/2016 9:46 AM WARP DOFFER FABIO CLARK M.D. LYNNE SANDHU FINAL REPORT The radiology attending physician has personally reviewed this study, and has reviewed and/or edited this written report and agrees with it. ACC# ??Date Time ??Exam [id number] Jun 18, 2016 08:56:00 [id number] US Retroper cmp EXAMINATION: ?COMPLETE RENAL SONOGRAM HISTORY: 66-year-old female with elevated BUN/creatinine. FINDINGS: The echogenicity of both kidneys is normal. ??There is no hydronephrosis in either kidney. ??There are no renal calculi visualized. The right kidney measures 12.8 cm in length, and the left, 12.2 cm in length. ??The bladder is normal. IMPRESSION: ?? Normal kidneys. ??No hydronephrosis. Requested By: EDDIE ROMERO M.D. Dictated By: ?? LYNNE SANDHU ??on Jun ??2016 ??9:33A This document has been electronically signed by: FABIO CLARK M.D. on Jun ??2016 ??9:46A [id number] Procedure Note Provider, MD [place] - 09/17/2016 FABIO CLARK M.D. LYNNE SANDHU FINAL REPORT The radiology attending physician has personally reviewed this study, and has reviewed and/or edited this written report and agrees with it. ACC# Date Time Exam [id number] Jun 18, 2016 08:56:00 [id number] US Retroper cmp EXAMINATION: COMPLETE RENAL SONOGRAM HISTORY: 66-year-old female with elevated BUN/creatinine. FINDINGS: The echogenicity of both kidneys is normal. There is no hydronephrosis in either kidney. There are no renal calculi visualized. The right kidney measures 12.8 cm in length, and the left, 12.2 cm in length. The bladder is normal. IMPRESSION: Normal kidneys. No hydronephrosis. Requested By: EDDIE ROMERO M.D. Dictated By: LYNNE SANDHU on Jun 18 2016 9:33A This document has been electronically signed by: FABIO CLARK M.D. on Jun 18 2016 9:46A [id number] us Historical Provider IMHenna US PROCEDURES Final R esult * (ABNORMAL) Blood glucose, POC (06/18/2016 6:52 AM WARP DOFFER) Glucose, POC, bld 209(H) 70 - 199 mg/dl CDR HISTORICAL RESULTS Blood specimen (specimen) 06/18/2016 6:52 AM WARP DOFFER Denzel Mathews MD LAB BLOOD ORDERABLES Final Result Performing Organization Address [facility] de Phone Number CDR HISTORICAL RESULTS * (ABNORMAL) Urinalysis (06/18/2016 3:53 AM WARP DOFFER) Color, ur Straw Yellow CDR HISTOR ICAL RESULTS Clarity, ur Clear Clear CDR HIST ORICAL RESULTS Specific gravity, ur 1.009 1.003 - 1.030 CDR HISTORICAL RESULTS pH, ur 5.0 5.0 - 8.0 CDR HISTOR ICAL RESULTS Protein, ur Negative Trace CDR HIST ORICAL RESULTS Glucose, ur Negative Negative CDR HIST ORICAL RESULTS Ketones, ur Negative Negative CDR HIST ORICAL RESULTS Bilirubin, ur Negative Negative CDR HI STORICAL RESULTS U Blood 1+(A) Negative CDR HISTOR ICAL RESULTS Urobilinogen, quant, ur <2.0 <2.0 mg/dl CDR HISTORICAL RESULTS Nitrites, ur Negative Negative CDR HIS TORICAL RESULTS Leukocyte esterase, ur 2+(A) Negative CDR HISTORICAL RESULTS Urine 06/18/2016 3:53 AM WARP DOFFER Eloisa Mo NP LAB BLOOD ORDERABLES Final R esult Performing Organization Address [facility] de Phone Number CDR HISTORICAL RESULTS * (ABNORMAL) Urine microscopy (06/18/2016 3:53 AM WARP DOFFER) RBC, ur 2 0 - 3 /hpf CDR HISTO RICAL RESULTS WBC, ur 2 0 - 5 /hpf CDR HISTO RICAL RESULTS Bacteria, ur Trace Trace CDR HIS TORICAL RESULTS Epithelial cells, renal, ur 0 0 - 0 /hpf CDR HISTORICAL RESULTS Epithelial cells, squamous, ur 2 /lpf CDR HISTORICAL RESULTS Mucus, ur Small /hpf CDR HISTOR ICAL RESULTS Hyaline casts 1(H) 0 - 0 /lpf CDR H ISTORICAL RESULTS Urine 06/18/2016 3:53 AM WARP DOFFER Eloisa Mo [employer] LAB BLOOD ORDERABLES Final R esult Performing Organization Address [facility] de Phone Number CDR HISTORICAL RESULTS * (ABNORMAL) Blood glucose, POC (06/18/2016 3:52 AM WARP DOFFER) [facility] Glucose, POC, bld 274(H) 70 - 199 mg/dl CDR HISTORICAL RESULTS Blood specimen (specimen) 06/18/2016 3:52 AM WARP DOFFER Denzel Mathews MD LAB BLOOD ORDERABLES Final Result Performing Organization Address [facility] de Phone Number CDR HISTORICAL RESULTS * Blood B-type natriuretic peptide (BNP) (06/18/2016 3:44 AM WARP DOFFER) [facility] BNP 29 0 - 100 pg/ml CDR HISTORICAL RESULTS Blood specimen (specimen) 06/18/2016 3:44 AM WARP DOFFER Eddie Romero MD PhD LAB BLOOD ORDERABLES Final Result Performing Organization Address [facility] de Phone Number CDR HISTORICAL RESULTS * (ABNORMAL) Blood cell count [CBC] express (06/18/2016 3:44 AM WARP DOFFER) [facility] WBC 8.6 3.8 - 9.9 K/cumm CDR HISTORICAL RESULTS RBC 3.90 3.90 - 5.20 M/cumm CDR HISTORICAL RESULTS Hgb 11.7(L) 11.9 - 15.5 g/dl CDR HISTORICAL RESULTS Hct 34.4(L) 35.6 - 45.5 % CDR HISTORICAL RESULTS MCV 88.2 81.3 - 96.4 fl CDR HISTORICAL RESULTS MCH 30.0 27.1 - 33.3 pg CDR HISTORICAL RESULTS MCHC 34.0 32.3 - 35.7 g/dl CDR HISTORICAL RESULTS Rdw 12.6 11.1 - 14.9 % CDR HISTORICAL RESULTS RDW 39.4 35.7 - 48.1 fl CDR HISTORICAL RESULTS NRBC 0.0 0.0 - 0.2 % CDR HIST ORICAL RESULTS NRBC, abs 0.00 0.00 - 0.01 K/cumm CDR HISTORICAL RESULTS Platelets 232 150 - 400 K/cumm CDR HISTORICAL RESULTS MPV 10.7 9.1 - 12.3 fl CDR HISTORICAL RESULTS Blood specimen (specimen) 06/18/2016 3:44 AM WARP DOFFER Eddie Romero MD PhD LAB BLOOD ORDERABLES Final Result Performing Organization Address [facility] de Phone Number CDR HISTORICAL RESULTS * Serum creatine kinase (CK) (06/18/2016 3:44 AM WARP DOFFER) CK 82 20 - 200 Units/L CDR HISTORICAL RESULTS Serum 06/18/2016 3:44 AM WARP DOFFER Eddie Romero MD PhD LAB BLOOD ORDERABLES Final Result Performing Organization Address [facility] de Phone Number CDR HISTORICAL RESULTS * (ABNORMAL) Serum lipid panel (06/18/2016 3:44 AM WARP DOFFER) Cholesterol 210(H) 30 - 200 mg/dl CDR HISTORICAL RESULTS Comment: Interpretive Data Desirable: ?<200 mg/dL Borderline high: ??200-239 mg/dL High: ? > or = 240 mg/dL Literature Reference: National Cholesterol Education Program (NCEP) Expert Panel on Detection, Evaluation, and Treatment of High Blood Cholesterol in Adults (Adult Treatment Panel III). ??Circulation 2004; 110:227. Current interpretive data was last revised on 2015. Triglycerides 390(H) 0 - 150 mg/dl CDR HISTORICAL RESULTS Comment: Interpretive Data Desirable: ? < 150 mg/dL Borderline High: ? 150 - 199 mg/dL High: ?200 - 499 mg/dL Very High: ? > or = 499 mg/dL Literature Reference: See Cholesterol Current interpretive data was last revised on 2015. HDL 45 >=40 mg/dl CDR HISTORICAL RESULTS Comment: Interpretive Data Less than 40 mg/dL - low; A major risk factor for heart disease. Greater than or equal to 60 mg/dL - High; ??considered protective of heart disease. Literature Reference: See Cholesterol Current interpretive data was last revised on 2015. LDL 87 10 - 129 mg/dl CDR HISTORICAL RESULTS Comment: Interpretive Data Optimal: ? < 100 mg/dL Near Optimal: ?100 - 129 mg/dL Borderline High: ?? 130 - 159 mg/dL High: ?160 - 189 mg/dL Very high: ? > or = 190 mg/dL Literature Reference: See Cholesterol Current interpretive data was last revised on 2015. Non-HDL cholesterol, calculated 165 mg/dl CDR HISTORICAL RESULTS Comment: Interpretive Data When triglycerides are >200 mg/dL, non-HDL C is a secondary target of therapy, with a goal 30 mg/dL higher than the identified LDL-C goal. Reference: ??See Cholesterol Reference. Current interpretive data was last revised 2015. Serum 06/18/2016 3:44 AM WARP DOFFER Eddie Romero MD PhD LAB BLOOD ORDERABLES Final Result Performing Organization Address [facility] de Phone Number CDR HISTORICAL RESULTS * Plasma partial thromboplastin time (PTT) (06/18/2016 3:44 AM WARP DOFFER) APTT 35.7 25.0 - 37.0 seconds CDR HISTORICAL RESULTS Comment: Interpretive Data Therapeutic heparin range:60.0 - 94.0 sec based on correlation with therapeutic heparin activity range of 0.3 -0.7 Units/mL. Current interpretive data was last revised on 2011. Plasma 06/18/2016 3:44 AM WARP DOFFER Eddie Romero MD PhD LAB BLOOD ORDERABLES Final Result Performing Organization Address [facility] de Phone Number CDR HISTORICAL RESULTS * (ABNORMAL) Plasma basic metabolic panel (06/18/2016 3:44 AM WARP DOFFER) Sodium 138 135 - 145 mmol/L CDR HISTORICAL RESULTS K, pl 5.3(H) 3.3 - 4.9 mmol/L CDR HISTORICAL RESULTS Chloride 104 97 - 110 mmol/L CDR HISTORICAL RESULTS CO2 20(L) 22 - 32 mmol/L CDR HISTORICAL RESULTS BUN 62(H) 8 - 25 mg/dl CDR HISTORICAL RESULTS Glucose 295(H) 70 - 199 mg/dl CDR HISTORICAL RESULTS Creatinine 3.06(H) 0.60 - 1.10 mg/dl CDR HISTORICAL RESULTS Calcium 9.5 8.5 - 10.3 mg/dl CDR HISTORICAL RESULTS A. gap 14 2 - 15 mmol/L CDR HISTORICAL RESULTS Plasma 06/18/2016 3:44 AM WARP DOFFER Eddie Romero MD PhD LAB BLOOD ORDERABLES Final Result Performing Organization Address [facility] Co de Phone Number CDR HISTORICAL RESULTS * (ABNORMAL) Serum iron profile (06/18/2016 3:44 AM WARP DOFFER) Iron 47 35 - 145 mcg/dl CDR HISTORICAL RESULTS UIBC 246 112 - 347 mcg/dl CDR HISTORICAL RESULTS TIBC 293 250 - 400 mcg/dl CDR HISTORICAL RESULTS Transferrin saturation 16(L) 20 - 50 % CDR HISTORICAL RESULTS Serum 06/18/2016 3:44 AM WARP DOFFER Eddie Romero MD PhD LAB BLOOD ORDERABLES Final Result Performing Organization Address [facility] de Phone Number CDR HISTORICAL RESULTS * Serum troponin I (06/18/2016 3:44 AM WARP DOFFER) Troponin I <0.03 0.00 - 0.03 ng/ml CDR HISTORICAL RESULTS Comment: Interpretive Data Serial determinations are recommended for the diagnosis of myocardial infarction (Third [place] Definition of Myocardial Infarction. ??J Am Rmei Cardiol 2012;60:1581-98). Current interpretive data was last revised on 13. Serum 06/18/2016 3:44 AM WARP DOFFER Eddie Romero MD PhD LAB BLOOD ORDERABLES Final Result Performing Organization Address [facility] Co de Phone Number CDR HISTORICAL RESULTS * Plasma prothrombin time (PT) (06/18/2016 3:44 AM WARP DOFFER) Pathologist [facility] Prothrombin time (PT) 11.2 9.2 - 14.0 seconds CDR HISTORICAL RESULTS INR 0.98 0.81 - 1.22 CDR HIST ORICAL RESULTS Comment: Interpretive Data Inpatient therapeutic ranges* Atrial fibrillation ?2.0-3.0 INR Venous thrombo-embolism ?2.0-3.0 INR Bioprosthetic heart valve ?* Mechanical heart valve, bileaflet or tilting disk,aortic position ? 2.0-3.0 INR All other,or bileaflet or tilting disk, in mitral position ? 2.5-3.5 INR *See the pharmacy resource directory (PHRED) for an updated copy of the Tool Book at [email or web address] Current Interpretive Data was last revised 2011. Plasma 06/18/2016 3:44 AM WARP DOFFER Eddie Romero MD PhD LAB BLOOD ORDERABLES Final Result Performing Organization Address [facility] de Phone Number CDR HISTORICAL RESULTS * Serum ferritin (06/18/2016 3:44 AM WARP DOFFER) Pathologist [facility] Ferritin 111 15 - 150 ng/ml CDR HISTORICAL RESULTS Serum 06/18/2016 3:44 AM WARP DOFFER us Eddie Romero MD PhD LAB BLOOD ORDERABLES Final Result Performing Organization Address [facility] de Phone Number CDR HISTORICAL RESULTS * (ABNORMAL) Blood cell count [CBC] express (06/18/2016 3:44 AM WARP DOFFER) Pathologist [facility] WBC 8.8 3.8 - 9.9 K/cumm CDR HISTORICAL RESULTS RBC 3.94 3.90 - 5.20 M/cumm CDR HISTORICAL RESULTS Hgb 11.8(L) 11.9 - 15.5 g/dl CDR HISTORICAL RESULTS Hct 35.1(L) 35.6 - 45.5 % CDR HISTORICAL RESULTS MCV 89.1 81.3 - 96.4 fl CDR HISTORICAL RESULTS MCH 29.9 27.1 - 33.3 pg CDR HISTORICAL RESULTS MCHC 33.6 32.3 - 35.7 g/dl CDR HISTORICAL RESULTS Rdw 12.7 11.1 - 14.9 % CDR HISTORICAL RESULTS RDW 39.5 35.7 - 48.1 fl CDR HISTORICAL RESULTS NRBC 0.0 0.0 - 0.2 % CDR HIST ORICAL RESULTS NRBC, abs 0.00 0.00 - 0.01 K/cumm CDR HISTORICAL RESULTS Platelets 231 150 - 400 K/cumm CDR HISTORICAL RESULTS MPV 10.6 9.1 - 12.3 fl CDR HISTORICAL RESULTS Blood specimen (specimen) 06/18/2016 3:44 AM WARP DOFFER Eddie Romero MD PhD LAB BLOOD ORDERABLES Final Result Performing Organization Address [facility] Co de Phone Number CDR HISTORICAL RESULTS * (ABNORMAL) Blood hemoglobin A1C (06/18/2016 3:44 AM WARP DOFFER) Hgb A1C 9.0(H) 4.0 - 6.0 % CDR HISTORICAL RESULTS Estimated average glucose 212 mg/dl CDR HISTORIC AL RESULTS Comment: The ADA recommends reporting an estimated Average Glucose (eAG) with all Hemoglobin A1c results using the equation derived from a study of 507 normal and diabetic adults. ??Minority populations were underrepresented and children were not included. ??(Diabetes Care 31:9551-8930, 2007). ??The eAG is not equivalent to a fasting glucose. Blood specimen (specimen) 06/18/2016 3:44 AM WARP DOFFER Eddie Romero MD PhD LAB BLOOD ORDERABLES Final Result Performing Organization Address [facility]/ZIP Co de Phone Number CDR HISTORICAL RESULTS * (ABNORMAL) Blood glucose, POC (06/18/2016 12:37 AM WARP DOFFER) Glucose, POC, bld 250(H) 70 - 199 mg/dl CDR HISTORICAL RESULTS Blood specimen (specimen) 06/18/2016 12:37 AM WARP DOFFER Result [facility] Nii Browning MD LAB BLOOD ORDERABLES Final Re sult Performing Organization Address [facility] Co de Phone Number CDR HISTORICAL RESULTS * STRESS TEST ONLY, DOBUTAMINE (06/18/2016) Anatomical Region Laterality Modality Other Narrative 06/18/2016 Ordered by an unspecified provider. Result [facility] Historical Provider CV STRESS PROCEDURES Phyllis l Result * ELECTROCARDIOGRAPHY (ECG) (06/18/2016) Narrative 06/18/2016 Ordered by an unspecified provider. Result [facility] Provider ECG ORDERABLES Final Res ult * ELECTROCARDIOGRAPHY (ECG) (06/18/2016) Narrative 06/18/2016 Ordered by an unspecified provider. Result [facility] Historical Provider ECG ORDERABLES Final Res ult * (ABNORMAL) Blood glucose, POC (06/17/2016 11:58 PM WARP DOFFER) Glucose, POC, bld 202(H) 70 - 199 mg/dl CDR HISTORICAL RESULTS Blood specimen (specimen) 06/17/2016 11:58 PM WARP DOFFER Result [facility] Nii Browning MD LAB BLOOD ORDERABLES Final Re sult Performing Organization Address [facility] Co de Phone Number CDR HISTORICAL RESULTS * (ABNORMAL) Blood glucose, POC (06/17/2016 10:16 PM WARP DOFFER) Glucose, POC, bld 64(L) 70 - 199 mg/dl CDR HISTORICAL RESULTS Blood specimen (specimen) 06/17/2016 10:16 PM WARP DOFFER Result [facility] Nii Browning MD LAB BLOOD ORDERABLES Final Re sult Performing Organization Address [facility] Co de Phone Number CDR HISTORICAL RESULTS * Blood glucose, POC (06/17/2016 8:16 PM WARP DOFFER) Glucose, POC, bld 78 70 - 199 mg/dl CDR HISTORICAL RESULTS Blood specimen (specimen) 06/17/2016 8:16 PM WARP DOFFER Notinfile Unknown LAB BLOOD ORDERABLES Final Res ult CDR HISTORICAL RESULTS * Plasma partial thromboplastin time (PTT) (06/17/2016 6:42 PM WARP DOFFER) APTT 26.3 25.0 - 37.0 seconds CDR HISTORICAL RESULTS Comment: Interpretive Data Therapeutic heparin range:60.0 - 94.0 sec based on correlation with therapeutic heparin activity range of 0.3 -0.7 Units/mL. Current interpretive data was last revised on 2011. Plasma 06/17/2016 6:42 PM WARP DOFFER Eloisa Mo BROADCAST OPERATIONS ENGINEER LAB BLOOD ORDERABLES Final R esult Performing Organization Address [facility]/State/ZIP Co de Phone Number CDR HISTORICAL RESULTS * Plasma prothrombin time (PT) (06/17/2016 6:42 PM WARP DOFFER) Prothrombin time (PT) 11.2 9.2 - 14.0 seconds CDR HISTORICAL RESULTS INR 0.98 0.81 - 1.22 CDR HIST ORICAL RESULTS Comment: Interpretive Data Inpatient therapeutic ranges* Atrial fibrillation ?2.0-3.0 INR Venous thrombo-embolism ?2.0-3.0 INR Bioprosthetic heart valve ?* Mechanical heart valve, bileaflet or tilting disk,aortic position ? 2.0-3.0 INR All other,or bileaflet or tilting disk, in mitral position ? 2.5-3.5 INR *See the pharmacy resource directory (PHRED) for an updated copy of the Tool Book at [email or web address]/pharmacy.nsf Current Interpretive Data was last revised 2011. Plasma 06/17/2016 6:42 PM WARP DOFFER us Eloisa Mo BROADCAST OPERATIONS ENGINEER LAB BLOOD ORDERABLES Final R esult CDR HISTORICAL RESULTS * XR Chest Pa Lateral 2 Views (06/17/2016 4:32 PM WARP DOFFER) Anatomical Region Laterality Modality Body, Chest N/A Radiographic Luba ging 06/17/2016 4:32 PM WARP DOFFER Narrative 06/17/2016 5:17 PM WARP DOFFER Nahid SANCHEZ M.D. FINAL REPORT The radiology attending physician has personally reviewed this study, and has reviewed and/or edited this written report and agrees with it. ACC# ??Date Time ??Exam [id number] Jun 17, 2016 16:32:00 [id number] Chest 2 views Frontl & Lat EXAMINATION: ?Chest 2 views HISTORY: ??Chest pain IMPRESSION: ?? Comparison is made to the prior from 07/31/2006. Heart size is normal. Lungs are clear. No pleural effusion or pneumothorax. Requested By: VINCENT MCCANN M.D. Dictated By: ?? DAVINA NIELSON M.D. ??on Jun?2016 ??5:03P This document has been electronically signed by: BLAKE CERRATO M.D. on Jun 17 2016 ??5:16P [id number] Procedure Note Provider, MD Aldair - 10/19/2016 Nahid SANCHEZ M.D. FINAL REPORT The radiology attending physician has personally reviewed this study, and has reviewed and/or edited this written report and agrees with it. ACC# Date Time Exam [id number] Jun 17, 2016 16:32:00 [id number] Chest 2 views Frontl & Lat EXAMINATION: Chest 2 views HISTORY: Chest pain IMPRESSION: Comparison is made to the prior from 07/31/2006. Heart size is normal. Lungs are clear. No pleural effusion or pneumothorax. Requested By: VINCENT MCCANN M.D. Dictated By: DAVINA NIELSON M.D. on Jun 17 2016 5:03P This document has been electronically signed by: BLAKE CERRATO M.D. on Jun 17 2016 5:16P [id number] Historical Provider IMG XR PROCEDURES Final R esult * (ABNORMAL) Serum thyroid-stimulating hormone (TSH) (06/17/2016 4:19 PM WARP DOFFER) TSH 0.09(L) 0.30 - 4.20 mcIUnits/ ml CDR HISTORICAL RESULTS Comment: Interpretive Data Hyperthyroid: ??<0.1 mcIUnit/mL Hypothyroid: ??>12.0 mcIUnit/mL Current interpretive data was last revised on 00. Serum 06/17/2016 4:19 PM WARP DOFFER Vincent Mccann MD LAB BLOOD ORDERABLES Final Res ult Performing Organization Address [facility] Co de Phone Number CDR HISTORICAL RESULTS * Plasma hepatic function panel (06/17/2016 4:19 PM WARP DOFFER) Bilirubin 0.2 0.1 - 1.2 mg/dl CDR HISTORICAL RESULTS Protein, pl 7.5 6.5 - 8.5 g/dl CDR HISTORICAL RESULTS Bilirubin, direct <0.2 0.1 - 0.3 mg/dl CDR HISTORICAL RESULTS Alb 4.0 3.5 - 5.0 g/dl CDR HISTORICAL RESULTS AST 24 10 - 45 Units/L CDR HISTORICAL RESULTS ALT 27 7 - 45 Units/L CDR HISTORICAL RESULTS Alk phos 90 40 - 130 Units/L CDR HISTORICAL RESULTS Plasma 06/17/2016 4:19 PM WARP DOFFER Vincent Mccann MD LAB BLOOD ORDERABLES Final Res ult Performing Organization Address City/State/[facility] Co de Phone Number CDR HISTORICAL RESULTS * (ABNORMAL) Plasma basic metabolic panel (06/17/2016 4:19 PM WARP DOFFER) Sodium 136 135 - 145 mmol/L CDR HISTORICAL RESULTS K, pl 5.7(H) 3.3 - 4.9 mmol/L CDR HISTORICAL RESULTS Chloride 102 97 - 110 mmol/L CDR HISTORICAL RESULTS CO2 20(L) 22 - 32 mmol/L CDR HISTORICAL RESULTS BUN 65(H) 8 - 25 mg/dl CDR HISTORICAL RESULTS Glucose 150 70 - 199 mg/dl CDR HISTORICAL RESULTS Creatinine 3.67(H) 0.60 - 1.10 mg/dl CDR HISTORICAL RESULTS Calcium 10.5(H) 8.5 - 10.3 mg/dl CDR HISTORICAL RESULTS A. gap 14 2 - 15 mmol/L CDR HISTORICAL RESULTS Plasma 06/17/2016 4:19 PM WARP DOFFER Vincent Mccann MD LAB BLOOD ORDERABLES Final Res ult Performing Organization Address [facility] de Phone Number CDR HISTORICAL RESULTS * Serum troponin I (06/17/2016 4:19 PM WARP DOFFER) Troponin I 0.03 0.00 - 0.03 ng/ml CDR HISTORICAL RESULTS Comment: Interpretive Data Serial determinations are recommended for the diagnosis of myocardial infarction (Third [place] Definition of Myocardial Infarction. ??J Am Remi Cardiol 2012;60:1581-98). Current interpretive data was last revised on 13. Serum 06/17/2016 4:19 PM WARP DOFFER Vincent Mccann MD LAB BLOOD ORDERABLES Final Res ult Performing Organization Address [facility] Co de Phone Number CDR HISTORICAL RESULTS * (ABNORMAL) Plasma phosphorus (06/17/2016 4:19 PM WARP DOFFER) Phosphorus, pl 5.4(H) 2.3 - 4.5 mg/dl CDR HISTORICAL RESULTS Plasma 06/17/2016 4:19 PM WARP DOFFER Vincent Mccann MD LAB BLOOD ORDERABLES Final Res ult Performing Organization Address [facility] de Phone Number CDR HISTORICAL RESULTS * Serum magnesium (06/17/2016 4:19 PM WARP DOFFER) Pathologist [facility] Magnesium 2.3 1.4 - 2.5 mg/dl CDR HISTORICAL RESULTS Serum 06/17/2016 4:19 PM WARP DOFFER Vincent Mccann MD LAB BLOOD ORDERABLES Final Res ult Performing Organization Address [facility] de Phone Number CDR HISTORICAL RESULTS * (ABNORMAL) Serum thyroxine (T4), free (06/17/2016 4:19 PM WARP DOFFER) Pathologist [facility] Free T4 1.74(H) 0.90 - 1.70 ng/dl CDR HISTORICAL RESULTS Serum 06/17/2016 4:19 PM WARP DOFFER Vincent Mccann MD LAB BLOOD ORDERABLES Final Res ult Performing Organization Address [facility] de Phone Number CDR HISTORICAL RESULTS * Blood cell count (CBC) (06/17/2016 4:19 PM WARP DOFFER) Pathologist [facility] WBC 9.9 3.8 - 9.9 K/cumm CDR HISTORICAL RESULTS RBC 4.17 3.90 - 5.20 M/cumm CDR HISTORICAL RESULTS Hgb 12.7 11.9 - 15.5 g/dl CDR HISTORICAL RESULTS Hct 36.3 35.6 - 45.5 % CDR HISTORICAL RESULTS MCV 87.1 81.3 - 96.4 fl CDR HISTORICAL RESULTS MCH 30.5 27.1 - 33.3 pg CDR HISTORICAL RESULTS MCHC 35.0 32.3 - 35.7 g/dl CDR HISTORICAL RESULTS Rdw 12.4 11.1 - 14.9 % CDR HISTORICAL RESULTS RDW 38.4 35.7 - 48.1 fl CDR HISTORICAL RESULTS Platelets 246 150 - 400 K/cumm CDR HISTORICAL RESULTS MPV 10.4 9.1 - 12.3 fl CDR HISTORICAL RESULTS NRBC 0.0 0.0 - 0.2 % CDR HIST ORICAL RESULTS NRBC, abs 0.00 0.00 - 0.01 K/cumm CDR HISTORICAL RESULTS Blood specimen (specimen) 06/17/2016 4:19 PM WARP DOFFER Vincent Mccann MD LAB BLOOD ORDERABLES Final Res ult Performing Organization Address [facility]/State/ZIP Co de Phone Number CDR HISTORICAL RESULTS * (ABNORMAL) Blood cell morphologic exam (06/17/2016 4:19 PM WARP DOFFER) Neutrophils 67.5 % CDR HIST ORICAL RESULTS Immature granulocytes 0.4 % CDR HISTORICAL RESULTS Lymphocytes 22.4 % CDR HIST ORICAL RESULTS Monos 7.8 % CDR HISTOR ICAL RESULTS Eosinophils 1.6 % CDR HIST ORICAL RESULTS Basophils 0.3 % CDR HISTOR ICAL RESULTS Neutrophils, abs 6.6(H) 1.7 - 6.5 K/cumm CDR HISTORICAL RESULTS Immature granulocyte, abs 0.0 0.0 - 0.1 K/cumm CDR HISTORICAL RESULTS Lymphocytes, abs 2.2 0.8 - 3.3 K/cumm CDR HISTORICAL RESULTS Monocytes, absolute 0.8 0.2 - 0.8 K/cumm CDR HISTORICAL RESULTS Eosinophils, abs 0.2 0.0 - 0.5 K/cumm CDR HISTORICAL RESULTS Basophils, abs 0.0 0.0 - 0.1 K/cumm CDR HISTORICAL RESULTS Blood specimen (specimen) 06/17/2016 4:19 PM WARP DOFFER Vincent Mccann MD LAB BLOOD ORDERABLES Final Res ult Performing Organization Address [facility] Co de Phone Number CDR HISTORICAL RESULTS * Blood glucose, POC (06/17/2016 4:00 PM WARP DOFFER) Glucose, POC, bld 138 70 - 199 mg/dl CDR HISTORICAL RESULTS Blood specimen (specimen) 06/17/2016 4:00 PM WARP DOFFER Notinfile Unknown LAB BLOOD ORDERABLES Final Res ult CDR HISTORICAL RESULTS documented in this encounter Visit Diagnoses Diagnosis Chondrocostal junction syndrome Tietze's disease Acute kidney failure (HCC) Acute kidney failure, unspecified Hyperkalemia Hyperpotassemia Zoster without complications Type 2 diabetes mellitus without complications (CMS/HCC) (HCC) MCC current use of insulin (CMS/HCC) (HCC) Hypothyroidism Unspecified hypothyroidism Hyperlipidemia Other and unspecified hyperlipidemia Essential (primary) hypertension Unspecified essential hypertension Glaucoma Unspecified glaucoma Abnormality of gait and mobility MCC current use of aspirin Family history of ischemic heart disease and other diseases of the circulatory system Family history of diabetes mellitus documented in this encounter
--- OUTSIDE RECORDS SUMMARY | 2024-04-29 14:15 | XMS_ITS | Encounter Summary ---
Author Organization [facility] Care Team Providers Care River Expedition Guide Name Role Phone Unavailable Primary Care Provider Unavailabl e Encounter Details Date Type Department Care Team (Late st Contact Info) Description 08/01/2009 - 08/01/2009 11:59 PM CDT Hospital Encounter [facility] Merna Vidal MD [address] [id number] Type 2 or unspecified type diabetes mellitus, uncontrolled; Other and unspecified hyperlipidemia Social History Tobacco Use Types Packs/Day Years Used Date Smoking Tobacco: Never Assessed Comments Unknown Sex and Gender Information Value Date Recorded Sex Assigned at Not on file Legal Sex Female 3:59 AM PROJECT ECONOMIST Gender Identity Female 05/13/2021 4:21 PM PROJECT ECONOMIST Sexual Orientation Not on file documented as [...] Diagnosis Type 2 or unspecified type diabetes mellitus, uncontrolled Other and unspecified hyperlipidemia documented in this encounter
--- OUTSIDE RECORDS SUMMARY | 2024-04-29 20:58 | XMS_ITS | Encounter Summary ---
Author Organization [facility] Address [address] [place] [address]. [place], [place] [address] [place] [address] Care Team Providers Care Cable Engineer Name Role Phone Elpidio Serrato MD Primary Care Provider [phone] Encounter Details Date Type Department Care Team [...] st Contact Info) Description 07/13/2024 1:40 PM LICENSED CERTIFIED ORTHOTIST Office Visit [facility] Multispecialty Care - [address], [address] [place] [address] Kirill Montelongo MD [address] [place] [address] documented as of this encounter Visit Diagnoses Not on filedocumented in this encounter Additional Health Concerns Assessment Noted Time PHQ-9 Depression Total Score: 0 08/14/19 24 7:35 AM CDT documented as of this encounter Care Teams Cable Engineer Relationship Specialty Start Date End Date Elpidio Serrato MD [address] [place] [address] PCP - General INTERNAL MEDICINE 06/19/18 documented as of this encounter
--- OUTSIDE RECORDS SUMMARY | 2024-04-29 20:58 | XMS_ITS | Encounter Summary ---
Author Organization [facility] Address [address] [facility] [place] [address] Care Team Providers Care Rust Proofer Name Role Phone Unavailable Primary Care Provider Unavailabl e Encounter Details Date Type Department Care Team (Late st Contact Info) Description 04/17/2005 Orders Only [facility] [address] [place] [address] ProviderAldair MD Social History Tobacco Use Types [...] MICRO EXAM KIM 04/17/2005 10 :36 AM VIDEOGRAPHER documented in this encounter Results * GROSS + MICRO EXAM (04/17/2005 10:36 AM VIDEOGRAPHER) Result CASE NUMBER [id number] Comment: ORDERING PHYSICIAN ??JACKSON BOOTH SPECIMEN TYPE [...] approximating inked margin of resection) MS/na RT Pipe Covering Molder ? na Pathologist ?Ck Roberts M.D. Snomed. ?04/18/2005 1608 <1> CPT code ? 14655,91482 MISCELLANEOUS SAMPLES / Unknown 04/17/2005 10:36 AM VIDEOGRAPHER 04/17/2005 10:39 AM VIDEOGRAPHER Historical Provider MD LAB - PATHOLOGY/C YTOLOGY ORDERABLES documented in this encounter Visit Diagnoses Not on filedocumented in this encounter
--- OUTSIDE RECORDS SUMMARY | 2024-04-29 20:58 | XMS_ITS | Encounter Summary ---
Author Organization [facility] Address [address] [place] [address]. [place], [place] [address] [place] [address] Care Team Providers Care Welder Oxyhydrogen Name Role Phone Elpidio Serrato MD Primary Care Provider [phone] Reason for Visit * Reason Comments Lab [...] st Contact Info) Description 07/13/2024 1:40 PM NUTRITION TECH Office Visit [facility] Medical Group Multispecialty Care - [facility] [address] [facility], [address] [place] [address] Kirill Montelongo MD [address] [place] [address] documented as of this encounter Procedures Procedure [...] documented as of this encounter Care Teams Welder Oxyhydrogen Relationship Specialty Start Date End Date Elpidio Serrato MD [address] [place] [address] PCP - General INTERNAL MEDICINE 06/19/18 documented as of this encounter
--- OUTSIDE RECORDS SUMMARY | 2024-04-29 20:58 | XMS_ITS | Encounter Summary ---
Author Organization [facility] Address [address] [place] [address]. [place], [place] [address] [place] [address] Care Team Providers Care Emergency Room Rn Name Role Phone Elpidio Serrato MD Primary Care Provider [phone] Encounter Details Date Type Department Care Team (Late st Contact Info) Description 02/28/2022 9:00 AM CDT Flu/Imm Clinic [facility] Family & Internal Medicine [address] [id number] [place] [address] Elpidio Serrato MD [address] [place] [address] Social History Tobacco Use Types Packs/Day [...] st Contact Info) Description 07/13/2024 1:40 PM REMOTE ADVISOR Office Visit [facility] Medical [facility] Multispecialty Care - [facility] [address] [facility], [address] [place] [address] Kirill Montelongo MD 3 [place] [address] documented as of this encounter Visit Diagnoses Diagnosis Need for prophylactic vaccination against viral disease- Primary Need for prophylactic vaccination and inoculation against other viral diseases documented in this encounter Additional Health Concerns Assessment Noted Time PHQ-9 Depression Total Score: 0 06/12/19 22 9:09 AM REMOTE ADVISOR documented as of this encounter Care Teams Emergency Room Rn Relationship Specialty Start Date End Date Elpidio Serrato MD [address] [place] [address] PCP - General INTERNAL MEDICINE 06/19/18 documented as of this encounter
--- OUTSIDE RECORDS SUMMARY | 2024-04-29 20:58 | XMS_ITS | Encounter Summary ---
Author Organization [facility] Address [address] [place] [address]. [place], [place] [address] [place] [address] Care Team Providers Care Pneumatic System Conveyor Operator Name Role Phone Elpidio Serrato MD Primary Care Provider [phone] Reason for Visit * Reason Comments Boat Buffer Plastic Report (SCAN)* Encounter Details Date Type Department Care Team (Late Contact Info) Description 11/25/2023 Scan HEALTH INFO SRVCS Scanned, Doc Med Group Boat Buffer Plastic Report (SCAN)* Social History Tobacco Use Types [...] (Late Contact Info) Description 07/13/2024 1:40 PM LIQUOR INSPECTOR Office Visit [facility] Medical [facility] Multispecialty Care - [address], [address] [place] [address] Kirill Montelongo MD [address] [place] [address] documented as of this encounter Procedures Procedure Name Priority Date/Time Associated Diagnosis Comments MEDICAL MICROBIOLOGIST 11/25/2023 documented in this encounter Results * MEDICAL MICROBIOLOGIST (11/25/2023) Anatomical Region Laterality Modality Other 11/25/2023 us Doc Med Group Scanned SCANNING Final Resu lt documented in this encounter Visit Diagnoses Not on filedocumented in this encounter Additional Health Concerns Assessment Noted Time PHQ-9 Depression Total Score: 0 08/14/19 24 7:35 AM CDT documented as of this encounter Care Teams Pneumatic System Conveyor Operator Relationship Specialty Start Date End Date Elpidio Serrato MD [address] [place] [id number] PCP - General INTERNAL MEDICINE 06/19/18 documented as of this encounter
--- OUTSIDE RECORDS SUMMARY | 2024-04-29 20:58 | XMS_ITS | Encounter Summary ---
Author Organization [facility] Address [address] [place] [address]. [place], [place] [address] [place] [address] Care Team Providers Care Audit Tech Name Role Phone Elpidio Serrato MD Primary Care Provider [phone] Encounter Details Date Type Department Care Team [...] st Contact Info) Description 07/13/2024 1:40 PM PARK MANAGER Office Visit [facility] Medical Group Multispecialty Care - [address], [address] [place] [address] Kirill Montelongo MD [address] [place] [address] documented as of this encounter Visit Diagnoses Not on filedocumented in this encounter Additional Health Concerns Assessment Noted Time PHQ-9 Depression Total Score: 0 08/14/19 24 7:35 AM CDT documented as of this encounter Care Teams Audit Tech Relationship Specialty Start Date End Date Elpidio Serrato MD [address] [place] [address] PCP - General INTERNAL MEDICINE 06/19/18 documented as of this encounter
--- OUTSIDE RECORDS SUMMARY | 2024-04-29 20:58 | XMS_ITS | Encounter Summary ---
Author Organization [facility] Address [address] [place] [address]. [place], [place] [address] [place] [address] Care Team Providers Care Senior Air Director Name Role Phone Elpidio Serrato MD Primary Care Provider [phone] Reason for Visit * Reason Onset Date Comments Wound 02/28/2024 Encounter Details Date Type Department Care Team (Late st Contact Info) Description 02/28/2024 Telephone [facility] Family & Internal Medicine [place] [address] [place] [address] Elpidio Serrato MD [address] [place] [address] Wound Social History Tobacco Use Types [...] st Contact Info) Description 07/13/2024 1:40 PM BANK RECONCILIATOR Office Visit [facility] Medical Group Multispecialty Care - [facility] [address] [facility], [address] [place] [address] Kirill Montelongo MD 3 [place] [address] documented as of this encounter Visit Diagnoses Diagnosis Cellulitis, unspecified cellulitis site- Primary documented in this encounter Additional Health Concerns Assessment Noted Time PHQ-9 Depression Total Score: 0 08/14/19 24 7:35 AM CDT documented as of this encounter Care Teams Senior Air Director Relationship Specialty Start Date End Date Elpidio Serrato MD [address] [place] [address] PCP - General INTERNAL MEDICINE 06/19/18 documented as of this encounter
--- OUTSIDE RECORDS SUMMARY | 2024-04-29 20:58 | XMS_ITS | Encounter Summary ---
Author Organization [facility] Address [address] [place] [address]. [place], [place] [address] [place] [address] Care Team Providers Care Cage Operator Name Role Phone Elpidio Serrato MD Primary Care Provider [phone] Encounter Details Date Type Department Care Team [...] st Contact Info) Description 07/13/2024 1:40 PM BLOWING ENGINEER Office Visit [facility] Medical Group Multispecialty Care - [address], [address] [place] [address] Kirill Montelongo MD 3 [place] [address] documented as of this encounter Visit Diagnoses Not on filedocumented in this encounter Additional Health Concerns Assessment Noted Time PHQ-9 Depression Total Score: 0 08/14/19 24 7:35 AM CDT documented as of this encounter Care Teams Cage Operator Relationship Specialty Start Date End Date Elpidio Serrato MD [address] [place] [address] PCP - General INTERNAL MEDICINE 06/19/18 documented as of this encounter
--- OUTSIDE RECORDS SUMMARY | 2024-04-29 20:58 | XMS_ITS | Encounter Summary ---
Author Organization [facility] Address [address] [place] [address]. [place], [place] [address] [place] [address] Care Team Providers Care Ged Tutor Name Role Phone Elpidio Serrato MD Primary Care Provider [phone] Reason for Referral * Consultation (Routine) - New Request Specialty Diagnoses / Procedures Referred By Constantino alvarado Referred To Contact NEUROLOGY Diagnoses Ulnar neuropathy of left upper extremity Procedures OFFICE/OUTPATIENT NEW LOW MDM 30-44 MINUTES OFFICE/OUTPT VISIT,NEW,LEVL IV OFFICE/OUTPT VISIT,NEW,LEVL V OFFICE/OUTPT VISIT,EST,LEVL III OFFICE/OUTPT VISIT,EST,LEVL IV OFFICE/OUTPT VISIT,EST,LEVL V Elpidio Serrato MD [address] [place] [address] Phone: tel: fax: [facility] Multispecialty Care - [facility] [address] [facility], [address] [place] [address] Phone: tel: Referral ID Status Reason Start Date Expiration Date Visits Requested Visits Authorized [id number] New Request Specialty Services 03/23/2025 1 1 Reason for Visit * Reason Onset Date Comments Results 02/21/2024 Referral 02/21/2024 Neurology Encounter Details Date Type Department Care Team (Late st Contact Info) Description 02/21/2024 Telephone [facility] Family & Internal Medicine [facility] [address] [place] [address] Elpidio Serrato MD [address] [place] [address] Results; Referral (Neurology ) Social History Tobacco [...] in FAMILY PRACTICE was on: 02/10/2024 in [facility] Future appointment scheduled: Future Appointments Date Time Provider Department Center 02/25/2024 2:20 PM Elpidio Serrato MD [id number] * Ninoska Springer MA - 02/21/2024 1:08 [...] st Contact Info) Description 07/13/2024 1:40 PM DOG GROOMER Office Visit [facility] Medical Group Multispecialty Care - [facility] [address] [facility], [address] [place] [address] Kirill Montelongo MD 3 [place] [address] Scheduled Referrals Name Type Priority Associated Diagnoses [...] documented as of this encounter Care Teams Ged Tutor Relationship Specialty Start Date End Date Elpidio Serrato MD [address] [place] [address] PCP - General INTERNAL MEDICINE 06/19/18 documented as of this encounter
--- OUTSIDE RECORDS SUMMARY | 2024-04-29 20:58 | XMS_ITS | Encounter Summary ---
Author Organization [facility] Address [address] [place] [address]. [place], [place] [address] [place] [address] Care Team Providers Care Hr Manager Name Role Phone Elpidio Serrato MD Primary Care Provider [phone] Encounter Details Date Type Department Care Team [...] st Contact Info) Description 07/13/2024 1:40 PM FURNACE MECHANIC HELPER Office Visit [facility] Medical Group Multispecialty Care - [address], [address] [place] [address] Kirill Montelongo MD 3 [place] [address] documented as of this encounter Visit Diagnoses Not on filedocumented in this encounter Additional Health Concerns Assessment Noted Time PHQ-9 Depression Total Score: 0 08/14/19 24 7:35 AM CDT documented as of this encounter Care Teams Hr Manager Relationship Specialty Start Date End Date Elpidio Serrato MD [address] [place] [address] PCP - General INTERNAL MEDICINE 06/19/18 documented as of this encounter
--- OUTSIDE RECORDS SUMMARY | 2024-04-29 20:58 | XMS_ITS | Encounter Summary ---
Author Organization [facility] Address [address] [place] [address]. [place], [place] [address] [place] [address] Care Team Providers Care Metal Miner Blasting Name Role Phone Elpidio Serrato MD Primary Care Provider [phone] Reason for Visit * Reason Comments Lab [...] st Contact Info) Description 07/13/2024 1:40 PM AUTOMATIC CAR WASH ATTENDANT Office Visit [facility] Medical Group Multispecialty Care - [facility] [address] [facility], [address] [place] [address] Kirill Montelongo MD [address] [place] [address] documented as of this encounter Procedures Procedure Name Priority Date/Time Associated Diagnosis Comments OUTSIDE LAB (SCAN ORDER) 10/29/2023 OUTSIDE LAB (SCAN ORDER) 10/29/2023 OUTSIDE LAB (SCAN ORDER) 10/29/2023 documented in this encounter Results * OUTSIDE LAB (SCAN ORDER) (10/29/2023) 10/29/2023 [facility] Scanned SCANNING Final Resu lt * OUTSIDE LAB (SCAN ORDER) (10/29/2023) 10/29/2023 [facility] Scanned SCANNING Final Resu lt * OUTSIDE LAB (SCAN ORDER) (10/29/2023) 10/29/2023 [facility] Scanned SCANNING Final Resu lt documented in this encounter Visit Diagnoses Not on filedocumented in this encounter Additional Health Concerns Assessment Noted Time PHQ-9 Depression Total Score: 0 08/14/19 24 7:35 AM CDT documented as of this encounter Care Teams Metal Miner Blasting Relationship Specialty Start Date End Date Elpidio Serrato MD [address] [place] [address] PCP - General INTERNAL MEDICINE 06/19/18 documented as of this encounter
--- OUTSIDE RECORDS SUMMARY | 2024-04-29 20:58 | XMS_ITS | Encounter Summary ---
Author Organization [facility] Address [address] [place] [address]. [place], [place] [address] [place] [address] Care Team Providers Care Blender Conveyor Operator Name Role Phone Elpidio Serrato MD Primary Care Provider [phone] Encounter Details Date Type Department Care Team [...] st Contact Info) Description 07/13/2024 1:40 PM ROUTE DELIVERER Office Visit [facility] Medical Group Multispecialty Care - [facility] [address] [facility], [address] [place] [address] Kirill Montelongo MD 3 [place] [address] documented as of this encounter Visit Diagnoses Not on filedocumented in this encounter Additional Health Concerns Assessment Noted Time PHQ-9 Depression Total Score: 0 06/12/19 22 9:09 AM ROUTE DELIVERER documented as of this encounter Care Teams Blender Conveyor Operator Relationship Specialty Start Date End Date Elpidio Serrato MD [address] [place] [address] [phone] PCP - General INTERNAL MEDICINE 06/19/18 documented as of this encounter
--- OUTSIDE RECORDS SUMMARY | 2024-04-29 20:58 | XMS_ITS | Encounter Summary ---
Author Organization [facility] Address [address] [place] [address]. [place], [place] [address] [place] [address] Care Team Providers Care Drill Bit Sharpener Name Role Phone Elpidio Serrato MD Primary Care Provider [phone] Encounter Details Date Type Department Care Team [...] st Contact Info) Description 07/13/2024 1:40 PM SENIOR SUPPORT ANALYST Office Visit [facility] Medical Group Multispecialty Care - [address], [address] [place] [address] Kirill Montelongo MD 3 [place] [address] documented as of this encounter Visit Diagnoses Not on filedocumented in this encounter Additional Health Concerns Assessment Noted Time PHQ-9 Depression Total Score: 0 08/14/19 24 7:35 AM CDT documented as of this encounter Care Teams Drill Bit Sharpener Relationship Specialty Start Date End Date Elpidio Serrato MD [address] [place] [address] PCP - General INTERNAL MEDICINE 06/19/18 documented as of this encounter
--- OUTSIDE RECORDS SUMMARY | 2024-04-29 20:58 | XMS_ITS | Encounter Summary ---
Author Organization [facility] Address [address] [place] [address]. [place], [place] [address] [place], [place] [address] Care Team Providers Care Chemical Supervisor Name Role Phone Elpidio Serrato MD Primary Care Provider [phone] Encounter Details Date Type Department Care Team [...] st Contact Info) Description 07/13/2024 1:40 PM ADJUSTER AND INSPECTOR Office Visit [facility] Medical Group Multispecialty Care - [facility] [address] [facility], [address] [place] [address] Kirill Montelongo MD 3 [place] [address] documented as of this encounter Visit Diagnoses Not on filedocumented in this encounter Additional Health Concerns Assessment Noted Time PHQ-9 Depression Total Score: 0 06/12/19 22 9:09 AM ADJUSTER AND INSPECTOR documented as of this encounter Care Teams Chemical Supervisor Relationship Specialty Start Date End Date Elpidio Serrato MD [address] [place] [address] PCP - General INTERNAL MEDICINE 06/19/18 documented as of this encounter
--- OUTSIDE RECORDS SUMMARY | 2024-04-29 20:58 | XMS_ITS | Encounter Summary ---
Author Organization [facility] Address [address] [place] [address]. [place], [place] [address] [place] [address] Care Team Providers Care Health Unit Supervisor Name Role Phone Elpidio Serrato MD Primary Care Provider [phone] Encounter Details Date Type Department Care Team [...] Info) Description 07/13/2024 1:40 PM DIRECTOR OF INDIVIDUAL GIVING Office Visit [facility] Medical Group Multispecialty Care - [address], [address] [place] [address] Kirill Montelongo MD [address] [place] [address] documented as of this encounter Visit Diagnoses Not on filedocumented in this encounter Additional Health Concerns Assessment Noted Time PHQ-9 Depression Total Score: 0 08/14/19 24 7:35 AM CDT documented as of this encounter Care Teams Health Unit Supervisor Relationship Specialty Start Date End Date Elpidio Serrato MD [address] [place] [address] PCP - General INTERNAL MEDICINE 06/19/18 documented as of this encounter
--- OUTSIDE RECORDS SUMMARY | 2024-04-29 20:58 | XMS_ITS | Encounter Summary ---
Author Organization [facility] Address [facility]. [place], [place] [address] [place] [address] Care Team Providers Care Rubber Goods Repairer Name Role Phone Elpidio Serrato MD Primary Care Provider [phone] Reason for Visit * Reason Comments Joint Pain Knee and hand swelli ng, shoulder pain. Patient states her knees were so swollen she was unable to walk. Encounter Details Date Type Department Care Team (Late st Contact Info) Description 11/27/2021 8:00 AM CDT Office Visit [facility] Medical Group Family & Internal Medicine [address] [address] Elpidio Serrato MD [address] [place] [address] [phone] Joint Pain (Knee and hand swelling, shoulder [...] nightly at bedtime. ??? vitamin D2, ergocalciferol, 97785 UNITS capsule Take 1 capsule by mouth [...] st Contact Info) Description 07/13/2024 1:40 PM EXCELSIOR CUTTER Office Visit [facility] Medical Group Multispecialty Care - [facility] [address] [facility], [address] [place] [address] Kirill Montelongo MD 3 [place] [address] documented as of this encounter Procedures Procedure [...] Total Score: 0 06/12/19 22 9:09 AM EXCELSIOR CUTTER documented as of this encounter Care Teams Rubber Goods Repairer Relationship Specialty Start Date End Date Elpidio Serrato MD [address] [place] [address] PCP - General INTERNAL MEDICINE 06/19/18 documented as of this encounter
--- OUTSIDE RECORDS SUMMARY | 2024-04-29 20:58 | XMS_ITS | Encounter Summary ---
Author Organization [facility] Address [address] [place] [address]. [place], [place] [address] [place] [address] Care Team Providers Care Upper Inspector Name Role Phone Elpidio Serrato MD Primary Care Provider [phone] Reason for Visit * Reason Comments Lab [...] st Contact Info) Description 07/13/2024 1:40 PM CAFE COOK Office Visit [facility] Medical Group Multispecialty Care - [facility] 3 [facility], [address] [place] [address] Kirill oMntelongo MD [address] [place] [address] documented as of this encounter Procedures Procedure Name Priority Date/Time Associated Diagnosis Comments OUTSIDE LAB (SCAN ORDER) Routine 10/29/2023 documented in this encounter Results * OUTSIDE LAB (10/29/2023) [facility] A1C 5.9 % [facility] 10/29/2023 [facility] Scanned SCANNING Final Resu lt [facility] ONBASE documented in this encounter Visit Diagnoses Not on filedocumented in this encounter Additional Health Concerns Assessment Noted Time PHQ-9 Depression Total Score: 0 08/14/19 24 7:35 AM CDT documented as of this encounter Care Teams Upper Inspector Relationship Specialty Start Date End Date Elpidio Serrato MD [address] [place] [address] PCP - General INTERNAL MEDICINE 06/19/18 documented as of this encounter
--- OUTSIDE RECORDS SUMMARY | 2024-04-29 20:58 | XMS_ITS | Encounter Summary ---
Author Organization [facility] Address [address] [place] [address]. [place], [place] [address] [place] [address] Care Team Providers Care Scientist Name Role Phone Elpidio Serrato MD Primary Care Provider [phone] Reason for Visit * Reason Comments ER F/U [facility] ER f/u 02/19/24 f or Rt foot painAnderson ER f/u 02/19/24 for cellulitis Results Patient would like t o talk about results of nerve conduction. Encounter Details Date Type Department Care Team (Late st Contact Info) Description 02/25/2024 2:20 PM CDT Office Visit [facility] Medical Group Family & Internal Medicine - [address] [phone] Elpidio Serrato MD [address] [place] [address] ER F/U ([facility] ER f/u 02/19/24 for [...] Progress Note Reason for Visit: ER F/U ([facility] ER f/u 02/19/24 for Rt foot pain/[facility] ER f/u 02/19/24 for cellulitis) and Results (Patient would like to talk about results of nerve conduction. ) History of Present Illness: She is here today for follow-up from the wound and ER visits. She states that she initially went to the emergency room at [place] for right foot pain andswelling. She had [...] she went to the emergency room at [facility]. At [facility] she was diagnosed with cellulitis and started [...] tablet (8.6 mg total). vitamin D2, ergocalciferol, 13691 UNITS capsule Take 1 capsule (1.25 mg total) by mouth weekly. No current facility-administered medications on file prior to visit. Allergies: Allergies Allergen Reactions Pseudoephedrine Tachycardia Valacyclovir Other (see comment) put me in renal failure Medical History: Past Medical History: Diagnosis Date Cataract Closed tibia fracture Diabetes mellitus ([facility]) Disease of thyroid gland Glaucoma Hypertension Surgical History: Past Surgical History: Procedure Laterality Date APPENDECTOMY CABG, ARTERIAL, THREE 01/20/2024 Performed at [facility] by Dr. Treviño CARPAL TUNNEL RELEASE [...] failure type ([facility]CC HHS/HCC) Chronic Recommendations and Plan: 1. Cellulitis of right foot (Primary) Finish antibiotics as prescribed Encouraged to establish with podiatry for toenail care due to the inability to cut her own toenails Call if not improving or if worsening. 2. Benign essential hypertension Well controlled, continue with present management. 3. Chronic congestive heart failure, unspecified heart failure type ([facility]) Doing well, continue with same medications. I personally spent a total of 31 minutes on the day of the encounter. This includes ksoy-hi-tryi and orq-zoup-qf-face time I provided on the day of the encounter & excludes time spent performing separately reportable services. Orders Placed This Encounter cephALEXin (KEFLEX) 500 MG capsule PCP: ELPIDIO SERRATO MD 02/25/2024 documented in this encounter Plan of Treatment Upcoming Encounters Date Type Department Care Team (Late st Contact Info) Description 07/13/2024 1:40 PM AUTOMATION SPECIALIST Office Visit [facility] Medical Group Multispecialty Care - [facility] 3 [facility], [address] [place] [address] Kirill Montelongo MD 3 [place] [address] documented as of this encounter Visit Diagnoses Diagnosis Cellulitis of right foot- Primary Cellulitis and abscess of foot, except toes Benign essential hypertension Essential hypertension, benign Chronic congestive heart failure, unspecified heart failure type ([facility]) documented in this encounter Additional Health Concerns Assessment Noted Time PHQ-9 Depression Total Score: 0 08/14/19 24 7:35 AM CDT documented as of this encounter Care Teams Scientist Relationship Specialty Start Date End Date Elpidio Serrato MD [address] [place] [address] PCP - General INTERNAL MEDICINE 06/19/18 documented as of this encounter
--- OUTSIDE RECORDS SUMMARY | 2024-04-29 20:58 | XMS_ITS | Referral Summary ---
Author Organization [facility] Address [address] [facility] [address] Care Team Providers Care Raw Stock Drier Tender Name Role Phone Unavailable Primary Care Provider Unavailabl e Source Comments [facility],non-owned Affiliates and Associated Physician Practices is amultiple site organization consisting of ambulatory clinics and hospital sitesin [place], [place], [place] and [place]. This disclosure is being madepursuant to the Care Everywhere program and may not contain all information available regarding this patient. Last updated 18.[facility] [employer] Social History Tobacco Use Types Packs/Day Years Used Date Smoking Tobacco: Never Assessed Sex and Gender Information Value Date Recorded Sex Assigned at Not on file Gender Identity Not on file Sexual Orientation Not on file Plan of Treatment Not on file
--- OUTSIDE RECORDS SUMMARY | 2024-04-29 20:58 | XMS_ITS | Encounter Summary ---
Author Organization [facility] Address [address] [place] [address]. [place], [place] [address] [place] [address] Care Team Providers Care Marketing Services Vice President Name Role Phone Elpidio Serrato MD Primary Care Provider [phone] Encounter Details Date Type Department Care Team [...] st Contact Info) Description 07/13/2024 1:40 PM DIGITAL COMMUNITY MANAGER Office Visit [facility] Medical Group Multispecialty Care - [address], [address] [place] [address] Kirill Montelongo MD 3 [place] [address] documented as of this encounter Visit Diagnoses Not on filedocumented in this encounter Additional Health Concerns Assessment Noted Time PHQ-9 Depression Total Score: 0 08/14/19 24 7:35 AM CDT documented as of this encounter Care Teams Marketing Services Vice President Relationship Specialty Start Date End Date Elpidio Serrato MD [address] [place] [address] PCP - General INTERNAL MEDICINE 06/19/18 documented as of this encounter
--- OUTSIDE RECORDS SUMMARY | 2024-04-29 20:58 | XMS_ITS | Clinical Summary ---
Author Organization [facility] Address [address] [place] [address] Care Team Providers Care Clinical Informatics Specialist Name Role Phone Unavailable Primary Care Provider Unavailabl e Source Comments [facility],non-owned Affiliates and Associated Physician Practices is amultiple site organization consisting of ambulatory clinics and hospital sitesin [place], [place], [place] and [place]. This disclosure is being madepursuant to the Care Everywhere program and may not contain all information available regarding this patient. Last updated 18.[facility] Social History Tobacco Use Types Packs/Day Years [...]
--- OUTSIDE RECORDS SUMMARY | 2024-04-29 20:58 | XMS_ITS | Encounter Summary ---
Author Organization [facility] Address [address] [place] [address]. [place], [place] [address] [place] [address] Care Team Providers Care Audio Visual Collections Coordinator Name Role Phone Elpidio Serrato MD Primary Care Provider [phone] Encounter Details Date Type Department Care Team [...] st Contact Info) Description 07/13/2024 1:40 PM CARDIOVASCULAR RADIOLOGIC TECHNOLOGIST Office Visit [facility] Medical Group Multispecialty Care - [address], [address] [place] [address] Kirill Montelongo MD 3 [place] [address] documented as of this encounter Visit Diagnoses Not on filedocumented in this encounter Additional Health Concerns Assessment Noted Time PHQ-9 Depression Total Score: 0 08/14/19 24 7:35 AM CDT documented as of this encounter Care Teams Audio Visual Collections Coordinator Relationship Specialty Start Date End Date Elpidio Serrato MD [address] [place] [address] PCP - General INTERNAL MEDICINE 06/19/18 documented as of this encounter
--- OUTSIDE RECORDS SUMMARY | 2024-04-29 20:58 | XMS_ITS | Clinical Summary ---
Author Organization [facility] Address [address] [place] [address]. [place], [place] [address] [place] [address] Care Team Providers Care Hide Tanner Name Role Phone Elpidio Serrato MD Primary Care Provider [phone] Allergies Active Allergy Reactions Criticality Noted Date Comments Pseudoephedrine Tachycardia Valacyclovir Other (see comment) 08/12/2018 put me in renal failure Medications latanoprost 0.005 % ophthalmic solution Apply 1 drop to eye. 9 Active vitamin D2, ergocalciferol , 04198 UNITS capsule Take 1 capsule (1.25 mg [...] Noted Date Diagnosed Date Congestive heart failure ([facility]) 11/11 Overview (02/25/2024): HFmrEF, last EF per TTE 45%, hypervolemic on exam today. Morbid (severe) obesity due to excess calories 0 08/14/2023 Body mass index (BMI) 40.0-44.9, adult 4 Age-related osteoporosis wit hout current pathological fracture 04/29/2023 Chronic kidney disease (CKD) stage G3b/A1, moderately decreased glomerular filtration rate (GFR) between 30-44 mL/min/1.73 square meter and albuminuria creatinine ratio less than 30* ([facility]) 12/25/2021 Overview (08/14/2023): Last Assessment & Plan: [...] essential hypertension 02/10/2018 Type 2 diabetes mellitus ([facility]) 12/07 Overview (08/14/2023): Last Assessment & Plan: [...] changes. Actinic keratosis 07/17/2012 Nonproliferative diabetic retinopathy ([facility]) 11/03/2009 Osteoarthritis of knee 12/16/2007 Overview (08/12/2018): Last Assessment & Plan: Follow-up with water resource specialist. Hyperlipidemia 07/21/2006 Overview (08/14/2023): Last Assessment & Plan: Lipid abnormalities are improving with treatment. LDL is 97 mg/dl. The patient was referred to the betting agency counter clerk. and Pharmacotherapy as ordered. Lipids will be [...] is unchanged. She is less active after jail. Discussed the patient's BMI. The BMI is too high, and is causing serious morbidities. . General weight loss/lifestyle modification strategies discussed (elicit support from others; identify saboteurs; non-food rewards, etc). Pharmacotherapy as ordered. Given bilateral knee pain, recommended water based exercises Encounters Date Type Department Care Team Description 03/05/2024 3:00 PM CDT Office Visit [facility] Internal [address] [address] Elpidio Serrato MD Cellulitis (Follow up on cellulitis R foot. ) 03/05/2024 Travel 02/28/[address] [address] Elpidio Serrato MD Wound 02/25/2024 2:20 PM CDT Office Visit [facility] Internal [address] [address] Elpidio Serrato MD ER F/U ([facility] ER f/u 02/19/24 for Rt foot pain/[facility] ER f/u 02/19/24 for cellulitis); Results (Patient would like to talk about results of nerve conduction. ) 02/25/2024 Travel 02/21/[address] [address] Elpidio Serrato MD Results; Referral (Neurology ) 02/20/2024 Scan [employer] INFO SRVCS Scanned, [facility] (SCAN) 02/19/2024 11:00 AM CDT Office Visit [facility] Multispecialty Care - [address], [address] [place] [address] Elpidio Serrato MD Govindarajan, Raghav, MD EMG Testing (BUE*ULNAR NERVE PALSY OF LEFT LOWER EXTREMITIES) 02/19/2024 8:08 AM CDT - 02/19/2024 9:49 AM CDT Emergency [facility] Emergency Room [address] [place] [address] Niranjan Zee PA Foot Pain Discharge Disposition: Home or Self Care (Routine Discharge) 02/19/2024 Scan [facility] INFO SRVCS Scanned, [facility] Image (SCAN) 02/19/2024 Travel 02/10/2024 1:00 PM CDT Office Visit [facility] Medical Group Family & Internal Medicine [address] [address] Elpidio Serrato MD Arm Pain (Patient c/o Lt Arm pain since CABG X3 performed at [facility]. Patient notes she has numbness/ tingling in [...] 08/12/2018 Pneumococcal(Ppv 23)Aka Pneumovax 04/29/2017 Zoster (Zostavax) 34599 Unt/0.65Ml 04/29/2017 Family History Medical History Relation [...] st Contact Info) Description 07/13/2024 1:40 PM NO BAKE MOLDER Office Visit [facility] Medical Group Multispecialty Care - [address], [address] [place] [address] Kirill Montelongo MD [address] [place] [address] Health Maintenance Due Date Last Done Comments [...] nerve conduction studies, the amplitude is measured [id number], the latency reported is the distal peak latency, and the conduction velocity, if measured, is determined from onset latencies and is over the forearm. For motor nerve conduction studies, the amplitude is measured jzeykuoz-[id number], the latency reported is the distal onset [...] 9:03 AM Narrative 02/19/2024 9:09 AM CDT [place] [address] EXAMINATION: Right foot 3 views EXAM DATE/TIME: [...] Procedure Note Jason Lowery MD - 02/19/[address] [address] EXAMINATION: Right foot 3 views EXAM DATE/TIME: [...] Most Recently Relevant to Health Maintenance Insurance [facility] MEDICARE Care Teams Hide Tanner Relationship Specialty Start Date End Date Elpidio Serrato MD [address] [place] [address] PCP - General INTERNAL MEDICINE 06/19/18
--- OUTSIDE RECORDS SUMMARY | 2024-04-29 20:58 | XMS_ITS | Encounter Summary ---
Author Organization [facility] Address [address] [place] [address]. [place], [place] [address] [place] [address] Care Team Providers Care Flexible Nanny Name Role Phone Elpidio Serrato MD Primary Care Provider [phone] Reason for Visit * Reason Comments Image [...] st Contact Info) Description 07/13/2024 1:40 PM PROJECT ARCHIVIST Office Visit [facility] Medical Group Multispecialty Care - [facility] [address] [facility], [address] [place] [address] Kirill Montelongo MD [address] [place] [address] documented as of this encounter Procedures Procedure [...] documented as of this encounter Care Teams Flexible Nanny Relationship Specialty Start Date End Date Elpidio Serrato MD [address] [place] [address] PCP - General INTERNAL MEDICINE 06/19/18 documented as of this encounter
--- OUTSIDE RECORDS SUMMARY | 2024-04-29 20:58 | XMS_ITS | Encounter Summary ---
Author Organization [facility] Address [address] [facility] [place] [address] Care Team Providers Care Food Product Inspector Name Role Phone Unavailable Primary Care Provider Unavailabl e Encounter Details Date Type Department Care Team (Late st Contact Info) Description 02/17/1998 Orders Only [facility] - Laboratory [address] [facility] [place] [address] ProviderAldair MD Social History Tobacco Use Types [...] 2:07 PM CDT) Result CASE NUMBER [id number] Comment: ORDERING PHYSICIAN ??JACKSON BALLARD SPECIMEN TYPE ?PAP Smear Date ? 02/17/1998 Procedure ?Cervical/Endocervical, 1 Vial for Thin Prep Received Specimen Adequacy ?Satisfactory for Evaluation but Limited No endocervical component in a non-atrophic cervical smear. Categorization ? Within Normal Limits Snomed. ?02/23/1998 1621 <1> Physical Optics Teacher ? Iris Stewart(ASCP) PAP Footnote ? The [...]
--- OUTSIDE RECORDS SUMMARY | 2024-04-29 20:58 | XMS_ITS | Encounter Summary ---
Author Organization [facility] Address [address] [place] [address]. [place], [place] [address] [place] [address] Care Team Providers Care Ice Cream Van Vendor Name Role Phone Elpidio Serrato MD Primary Care Provider [phone] Reason for Visit * Reason Comments Allied Health Visit Flu shot Encounter Details Date Type Department Care Team (Latest Contact Info) Description 02/05/2023 1:30 PM CDT Allied Health/Nurse Visit [facility] Medical Group Family & Internal Medicine [place] [address] [place] [address] Elpidio Serrato MD [address] [place] [address] Allied Health Visit (Flu shot) Social [...] st Contact Info) Description 07/13/2024 1:40 PM CALCINER OPERATOR Office Visit [facility] Medical Group Multispecialty Care - [facility] [address] [facility], [address] [place] [address] Kirill Montelongo MD 3 [place] [address] documented as of this encounter Visit Diagnoses Diagnosis Need for immunization against influenza- Primary Need for prophylactic vaccination and inoculation against influenza documented in this encounter Additional Health Concerns Assessment Noted Time PHQ-9 Depression Total Score: 0 06/12/19 9:09 AM CALCINER OPERATOR documented as of this encounter Care Teams Ice Cream Van Vendor Relationship Specialty Start Date End Date Elpidio Serrato MD [address] [place] [address] PCP - General INTERNAL MEDICINE 06/19/18 documented as of this encounter
--- OUTSIDE RECORDS SUMMARY | 2024-04-29 20:58 | XMS_ITS | Encounter Summary ---
Author Organization [facility] Address [address] [place] [address]. [place], [place] [address] [place] [address] Care Team Providers Care Road Freight Conductor Name Role Phone Elpidio Serrato MD Primary Care Provider [phone] Encounter Details Date Type Department Care Team (Late st Contact Info) Description 02/28/2022 8:40 AM CDT Flu/Imm Clinic [facility] Medical Group Family & Internal Medicine [place] [address] [place] [address] Elpidio Serrato MD [address] [place] [address] Social History Tobacco Use Types Packs/Day [...] st Contact Info) Description 07/13/2024 1:40 PM SOA INTEGRATION DEVELOPER Office Visit [facility] Medical Group Multispecialty Care - [facility] [address] [facility], [address] [place] [address] Kirill Montelongo MD 3 [place] [address] documented as of this encounter Visit Diagnoses Diagnosis Need for prophylactic vaccination against viral disease- Primary Need for prophylactic vaccination and inoculation against other viral diseases Need for prophylactic vaccination and inoculation against influenza documented in this encounter Additional Health Concerns Assessment Noted Time PHQ-9 Depression Total Score: 0 06/12/19 22 9:09 AM SOA INTEGRATION DEVELOPER documented as of this encounter Care Teams Road Freight Conductor Relationship Specialty Start Date End Date Elpidio Serrato MD [address] [place] [address] PCP - General INTERNAL MEDICINE 06/19/18 documented as of this encounter
--- OUTSIDE RECORDS SUMMARY | 2024-04-29 20:58 | XMS_ITS | Encounter Summary ---
Author Organization [facility] Address [facility]. 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 Procedures [facility] Elpidio Serrato MD [address] [place] [address] Phone: tel: fax: Kirill Montelongo MD [address] [place] [address] Phone: tel: fax: Referral ID Status Reason Start Date Expiration Date V isits Requested Visits Authorized [id number] Closed Office Procedure 02/10/2024 02/09/2025 1 1 Encounter Details Date Type Department Care Team (Latest Contact Info) Description 02/19/2024 11:00 AM CDT Office Visit [facility] Medical Group Multispecialty Care - [address], [address] [place] [address] Elpidio Serrato MD [address] [place] [address] Kirill Montelongo MD [address] [place] [address] EMG Testing (BUE*ULNAR NERVE PALSY OF LEFT [...] nerve conduction studies, the amplitude is measured [id number]-xi-[id number], the latency reported is the distal peak latency, and the conduction velocity, if measured, is determined from onset latencies and is over the forearm. For motor nerve conduction studies, the amplitude is measured dxppjbfy-we-vvoi, the latency reported is the distal onset [...] st Contact Info) Description 07/13/2024 1:40 PM DYNO TECHNICIAN Office Visit [facility] Medical Group Multispecialty Care - [facility] [address] [facility], [address] [place] [address] Kirill Montelongo MD [address] [place] [address] Scheduled Orders Name Type Priority Associated Diagnoses [...] nerve conduction studies, the amplitude is measured jmer-uu-jewd, the latency reported is the distal peak latency, and the conduction velocity, if measured, is determined from onset latencies and is over the forearm. For motor nerve conduction studies, the amplitude is measured dbghbzfh-[id number], the latency reported is the distal onset [...] documented as of this encounter Care Teams Antique Refinisher Relationship Specialty Start Date End Date Elpidio Serrato MD [address] [place] [address] PCP - General INTERNAL MEDICINE 06/19/18 documented as of this encounter
--- OUTSIDE RECORDS SUMMARY | 2024-04-29 20:58 | XMS_ITS | Encounter Summary ---
Author Organization [facility] Address [address] [place] [address]. [place], [place] [address] [place] [address] Care Team Providers Care Grain Broker And Market Operator Name Role Phone Elpidio Serrato MD Primary Care Provider [phone] Encounter Details Date Type Department Care Team [...] st Contact Info) Description 07/13/2024 1:40 PM BRAKE ASSEMBLER Office Visit [facility] Medical Group Multispecialty Care - [address], [address] [place] [address] Kirill Montelongo MD 3 [place] [address] documented as of this encounter Visit Diagnoses Not on filedocumented in this encounter Additional Health Concerns Assessment Noted Time PHQ-9 Depression Total Score: 0 08/14/19 24 7:35 AM CDT documented as of this encounter Care Teams Grain Broker And Market Operator Relationship Specialty Start Date End Date Elpidio Serrato MD [address] [place] [address] PCP - General INTERNAL MEDICINE 06/19/18 documented as of this encounter
--- OUTSIDE RECORDS SUMMARY | 2024-04-29 20:58 | XMS_ITS | Encounter Summary ---
Author Organization [facility] Address [address] [place] [address]. [place], [place] [address] [place] [address] Care Team Providers Care Superintendent Operations Division Name Role Phone Elpidio Serrato MD Primary Care Provider [phone] Encounter Details Date Type Department Care Team [...] st Contact Info) Description 07/13/2024 1:40 PM STOPE MINER Office Visit [facility] Medical Group Multispecialty Care - [facility] [address] [facility], [address] [place] [address] Kirill Montelongo MD 3 [place] [address] documented as of this encounter Visit Diagnoses Not on filedocumented in this encounter Additional Health Concerns Assessment Noted Time PHQ-9 Depression Total Score: 0 06/12/19 22 9:09 AM STOPE MINER documented as of this encounter Care Teams Superintendent Operations Division Relationship Specialty Start Date End Date Elpidio Serrato MD [address] [place] [address] [phone] PCP - General INTERNAL MEDICINE 06/19/18 documented as of this encounter
--- OUTSIDE RECORDS SUMMARY | 2024-04-29 20:58 | XMS_ITS | Encounter Summary ---
Author Organization [facility] Address [address] [place] [address]. [place], [place] [address] [place] [address] Care Team Providers Care Survey Director Name Role Phone Elpidio Serrato MD Primary Care Provider [phone] Encounter Details Date Type Department Care Team [...] COVID-19? No / Unsure 06/12/2021 8:48 AM DISTRICT LEADER documented as of this encounter Plan of Treatment Upcoming Encounters Date Type Department Care Team (Late st Contact Info) Description 07/13/2024 1:40 PM DISTRICT LEADER Office Visit [facility] Medical Group Multispecialty Care [facility] 3 [facility], [address] [place] [address] Kirill Montelongo MD 3 [place] [address] documented as of this encounter Visit Diagnoses Not on filedocumented in this encounter Additional Health Concerns Assessment Noted Time PHQ-9 Depression Total Score: 0 06/12/19 22 9:09 AM DISTRICT LEADER documented as of this encounter Care Teams Survey Director Relationship Specialty Start Date End Date Elpidio Serrato MD [address] [place] [address] [phone] PCP - General INTERNAL MEDICINE 06/19/18 documented as of this encounter
--- OUTSIDE RECORDS SUMMARY | 2024-04-29 20:58 | XMS_ITS | Encounter Summary ---
Author Organization [facility] Address [address] [place] [address]. [place], [place] [address] [place] [address] Care Team Providers Care Typewriter Aligner Name Role Phone Elpidio Serrato MD Primary Care Provider [phone] Encounter Details Date Type Department Care Team [...] st Contact Info) Description 07/13/2024 1:40 PM FITNESS CENTRE MANAGER Office Visit [facility] Medical Group Multispecialty Care - [address], [address] [place] [address] Kirill Montelongo MD 3 [place] [address] documented as of this encounter Visit Diagnoses Not on filedocumented in this encounter Additional Health Concerns Assessment Noted Time PHQ-9 Depression Total Score: 0 06/12/19 22 9:09 AM FITNESS CENTRE MANAGER documented as of this encounter Care Teams Typewriter Aligner Relationship Specialty Start Date End Date Elpidio Serrato MD [address] [place] [address] PCP - General INTERNAL MEDICINE 06/19/18 documented as of this encounter
--- OUTSIDE RECORDS SUMMARY | 2024-04-29 20:58 | XMS_ITS | Encounter Summary ---
Author Organization [facility] Address [address] [place] [address]. [place], [place] [address] [place] [address] Care Team Providers Care Room Service Food Service Attendant Name Role Phone Elpidio Serrato MD Primary Care Provider [phone] Reason for Visit * Reason Comments Foot Pain Encounter Details Date Type Department Care Team (Late st Contact Info) Description 02/19/2024 8:08 AM CDT - 02/19/2024 9:49 AM CDT Emergency [facility] [place] [address] Niranjan Zee PA [address] [place] [phone] Foot Pain Discharge Disposition: Home or Self [...] through Care Everywhere. * Osteoarthritis Discharge Instructions (Martiniquais) documented in this encounter Medications at Time [...] (8.6 mg total). 02/05/2024 vitamin D2, ergocalciferol, 65461 UNITS capsule Take 1 capsule (1.25 mg [...] 02/05/24 Default History Genericprovider vitamin D2, ergocalciferol, 98999 UNITS capsule Take 1 capsule (1.25 mg total) by mouth weekly. 08/07/10 Doc [facility] Abstract PAST MEDICAL HISTORY: Past Medical History: Diagnosis Date Cataract Closed tibia fracture Diabetes mellitus ([facility]CC) Disease of thyroid gland Glaucoma Hypertension PAST SURGICAL HISTORY: Past Surgical History: Procedure Laterality Date APPENDECTOMY CABG, ARTERIAL, THREE 01/20/2024 Performed at [facility] by Dr. Treviño CARPAL TUNNEL RELEASE Bilateral [...] FOOT RT 3V Final Result by User, [id number] (02/18 911) [address] [address] EXAMINATION: Right foot 3 views EXAM DATE/TIME: [...] daily., Starting 02/19/2024, Eprescribe Class: Eprescribe Pharmacy: [facility]/pharmacy #[address] [place] [address] [address] [facility] (Ph #: [phone]) methylPREDNISolone, CRISTIANE, (MEDROL DOSEPAK) 4 MG tablet 6 TABLETS ON DAY ONE, 5 TABLETS DAY TWO, 4 TABLETS DAY THREE, 3 TABLETS DAY FOUR, 2 TABLETS DAY FIVE, AND 1 TABLET DAY SIX, Eprescribe Class: Eprescribe Pharmacy: [facility]/pharmacy #[address] [place] [address] [address] [facility] (Ph #: [phone]) Disposition: Discharge Follow-Up: Elpidio Serrato MD [address] [place] [address] Schedule an appointment as soon as possible [...] st Contact Info) Description 07/13/2024 1:40 PM EQUIPMENT MAINT TECH Office Visit [facility] Medical Group Multispecialty Care - [facility] [address] [facility], [address] [place] [address] Kirill Montelongo MD 3 [place] [address] documented as of this encounter Procedures Procedure [...] 9:03 AM Narrative 02/19/2024 9:09 AM CDT [address] [address] EXAMINATION: Right foot 3 views EXAM DATE/TIME: [...] Procedure Note Jason Lowery MD - 02/19/2024 [facility] [address] [place], [place] [address] EXAMINATION: Right foot 3 views EXAM DATE/TIME: [...] documented as of this encounter Care Teams Room Service Food Service Attendant Relationship Specialty Start Date End Date Elpidio Serrato MD [address] [place] [address] PCP - General INTERNAL MEDICINE 06/19/18 documented as of this encounter
--- OUTSIDE RECORDS SUMMARY | 2024-04-29 20:58 | XMS_ITS | Encounter Summary ---
Author Organization [facility] Address [address] [place] [address]. [place], [place] [address] [place] [address] Care Team Providers Care Burner Hand Name Role Phone Elpidio Serrato MD Primary Care Provider [phone] Reason for Referral * Imaging (Routine) - New Request Specialty Diagnoses / Procedures Referred By Constantino alvarado Referred To Contact RADIOLOGY Diagnoses ROSE (dyspnea on exertion) Procedures USE ECHOCARDIOGRAM W CON Leigh Ann Kerns MD Three [facility] [address] [place] [address] Phone: tel: fax: Referral ID Status Reason Start Date Expiration Date V isits Requested Visits Authorized [id number] New Request 10/04/2023 10/03/2024 1 1 Reason for Visit * Reason Comments Breathing Problem Consult * Consultation (Routine) - Authorized Specialty Diagnoses / Procedures Referred By Contqi t Referred To Contact CARDIOLOGY / Cardiology Diagnoses Dyspnea on exertion Procedures OFFICE/OUTPATIENT NEW LOW MDM 30-44 MINUTES OFFICE/OUTPT VISIT,NEW,LEVL IV OFFICE/OUTPT VISIT,NEW,LEVL V OFFICE/OUTPT VISIT,EST,LEVL III OFFICE/OUTPT VISIT,EST,LEVL IV OFFICE/OUTPT VISIT,EST,LEVL V Elpidio Serrato MD [address] [place] [address] Phone: tel: fax: Leigh Ann Kerns MD Three [facility] [address] [place] [address] Phone: tel: fax: Referral ID Status Reason Start Date Expiration Date Visits Requested Visits Authorized [id number] Authorized Specialty Services 08/14/2023 09/12/2024 100 100 Encounter Details Date Type Department Care Team (Latest Contact Info) Description 10/04/2023 1:30 PM CDT Office Visit [facility] [address] Leigh Ann Kerns MD Three [facility] [address] [place] [address] Breathing Problem (Consult ) Social History [...] from the original note were not included. [place], [place] [address] Cardiology Consult PCP: ELPIDIO SERRATO MD Cardiac [...] Diabetes mellitus ([facility]) Disease of thyroid gland Glaucoma [...] 02/06/21 Doc [facility] Abstract vitamin D2, ergocalciferol, 28901 UNITS capsule Take 1 capsule (1.25 mg [...] panel, which she will have with her microfilming document preparer. In regards to her high blood pressure, [...] Portions of this note were dictated using Audioair speech recognition software. Occasional wrong wordor sound-alike substitutions may have occurred due to the inherent limitations of voice recognition software. Please read the chart carefully and recognize, using context, where the substitutions may have occurred. documented in this encounter Plan of Treatment Upcoming Encounters Date Type Department Care Team (Late st Contact Info) Description 07/13/2024 1:40 PM LICENSE ISSUER Office Visit [facility] Multispecialty Care - [facility] [address] [facility], [address] [place] [address] Kirill Montelongo MD 3 [place] [address] Scheduled Orders Name Type Priority Associated Diagnoses [...] documented as of this encounter Care Teams Burner Hand Relationship Specialty Start Date End Date Elpidio Serrato MD [address] [place] [address] PCP - General INTERNAL MEDICINE 06/19/18 documented as of this encounter
--- OUTSIDE RECORDS SUMMARY | 2024-04-29 20:58 | XMS_ITS | Patient Health Summary ---
Author Organization [facility] [employer] Address [address] [facility] [place] [address] Care Team Providers Care Molecular Physicist Name Role Phone Unavailable Primary Care Provider Unavailabl e Note from [facility],non-owned Affiliates and Associated Physician Practices is amultiple site organization consisting of ambulatory clinics and hospital sitesin [place], [place], [place] and [place]. This disclosure is being madepursuant to the Care Everywhere program and may not contain all information available regarding this patient. Last updated 18.[facility] [employer] Social History Tobacco Use Types Packs/Day Years Used Date Smoking Tobacco: Never Assessed Sex and Gender Information Value Date Recorded Sex Assigned at Not on file Gender Identity Not on file Sexual Orientation Not on file Procedures * GROSS + MICRO EXAM(Performed 04/17/2005) * CYTOLOGY SMEAR PAP THIN PREP(Performed 02/17/1998) Results * GROSS + MICRO EXAM (04/17/2005 10:36 AM SCRUM PROJECT MANAGER) Result CASE NUMBER [id number] Comment: ORDERING PHYSICIAN ??JACKSON BALLARD SPECIMEN TYPE [...] approximating inked margin of resection) MS/na RT Tag Writer ? na Pathologist ?Ck Roberts M.D. Snomed. ?04/18/2005 1608 <1> CPT code ? 33488,40639 MISCELLANEOUS SAMPLES / Unknown 04/17/2005 10:36 AM SCRUM PROJECT MANAGER 04/17/2005 10:39 AM SCRUM PROJECT MANAGER Historical Provider LAB - PATHOLOGY/C YTOLOGY ORDERABLES * CYTOLOGY SMEAR PAP THIN PREP (02/17/1998 2:07 PM CDT) Result CASE NUMBER [id number] Comment: ORDERING PHYSICIAN ??JACKSON BALLARD SPECIMEN TYPE ?PAP Smear Date ? 02/17/1998 Procedure ?Cervical/Endocervical, 1 Vial for Thin Prep Received Specimen Adequacy ?Satisfactory for Evaluation but Limited No endocervical component in a non-atrophic cervical smear. Categorization ? Within Normal Limits Snomed. ?02/23/1998 1621 <1> Beauty Operator ? Iris Stewart(ASCP) PAP Footnote ? The [...]
--- OUTSIDE RECORDS SUMMARY | 2024-04-29 20:58 | XMS_ITS | Encounter Summary ---
Author Organization [facility] Address [address] [place] [address]. [place], [place] [address] [place] [address] Care Team Providers Care Jack Winder Name Role Phone Elpidio Serrato MD Primary Care Provider [phone] Encounter Details Date Type Department Care Team [...] st Contact Info) Description 07/13/2024 1:40 PM ASSISTED LIVING HOME DIRECTOR Office Visit [facility] Medical [facility] Multispecialty Care - [address], [address] [place] [phone] Kirill Montelongo MD 3 [place] [address] documented as of this encounter Visit Diagnoses Not on filedocumented in this encounter Additional Health Concerns Assessment Noted Time PHQ-9 Depression Total Score: 0 08/14/19 24 7:35 AM CDT documented as of this encounter Care Teams Jack Winder Relationship Specialty Start Date End Date Elpidio Serrato MD [address] [place] [address] PCP - General INTERNAL MEDICINE 06/19/18 documented as of this encounter
--- OUTSIDE RECORDS SUMMARY | 2024-04-29 20:58 | XMS_ITS | Encounter Summary ---
Author Organization [facility] Address [address] [place] [address]. [place], [place] [address] [place] [address] Care Team Providers Care Animal Care Service Worker Name Role Phone Elpidio Serrato MD Primary Care Provider [phone] Reason for Referral * Consultation (Routine) - Authorized Specialty Diagnoses / Procedures Referred By Contac t Referred To Contact CARDIOLOGY / Cardiology Diagnoses Dyspnea on exertion Procedures OFFICE/OUTPATIENT NEW LOW MDM 30-44 MINUTES OFFICE/OUTPT VISIT,NEW,LEVL IV OFFICE/OUTPT VISIT,NEW,LEVL V OFFICE/OUTPT VISIT,EST,LEVL III OFFICE/OUTPT VISIT,EST,LEVL IV OFFICE/OUTPT VISIT,EST,LEVL V Elpidio Serrato MD [address] [place] [address] Phone: tel: fax: Leigh Ann Kerns MD Three [facility] [address] [place] [address] Phone: tel: fax: Referral ID Status Reason Start Date Expiration Date Visits Requested Visits Authorized [id number] Authorized Specialty Services 08/14/2023 09/12/2024 100 100 * Imaging (Routine) - Pending Review Specialty Diagnoses / Procedures Referred By Contac t Referred To Contact RADIOLOGY Diagnoses Encounter for screening mammogram for malignant neoplasm of breast Procedures MG SCREENING W CARISSA Elpidio Payne MD [address] [place] [address] Phone: tel: fax: Referral ID Status Reason Start Date Expiration Date V isits Requested Visits Authorized [id number] Pending Review 08/14/2023 10/13/2024 1 1 Reason for Visit * Reason Comments Diabetes Last A1c 5.8 () Hypertension Hyperlipidemia Encounter Details Date Type Department Care Team (Latest Contact Info) Description 08/14/2023 7:20 AM CDT Office Visit [facility] Medical [facility] Family & Internal Medicine - [address] [address] Elpidio Serrato MD [address] [place] [address] Diabetes (Last A1c 5.8 (04/29/23)); Hypertension; Hyperlipidemia [...] She does follow with endocrinology over at [facility]. Her hemoglobin A1c is 5.6% on her [...] symptoms of chronic kidney disease. Osteoporosis: Her cad administrator is ordering Reclast but has not yet [...] mouth nightly at bedtime. vitamin D2, ergocalciferol, 64583 UNITS capsule Take 1 capsule (1.25 mg total) by mouth weekly. No current facility-administered medications on file prior to visit. Allergies: Allergies Allergen Reactions Pseudoephedrine Tachycardia Valacyclovir Other (see comment) put me in renal failure Medical History: Past Medical History: Diagnosis Date Cataract Closed tibia fracture Diabetes mellitus ([facility]) Disease of thyroid gland Glaucoma Hypertension [...] use of insulin, macular edema presence unspecified ([facility]) CANCELED: HEMOGLOBIN, GLYCOSYLATED CANCELED: COLLECT.CAPILLARY (FNGR,HEEL,EAR) 2. Benign essential hypertension Chronic 3. Mixed hyperlipidemia 4. Dyspnea on exertion Ambulatory referral to Cardiology, Adult ([facility]) 5. Acquired hypothyroidism 6. Age-related osteoporosis without current pathological fracture 7. Chronic kidney disease (CKD) stage G3b/A1, moderately decreased glomerular filtration rate (GFR)between 30-44 mL/min/1.73 square meter and albuminuria creatinine ratio less than 30* ([facility]) 8. Encounter for screening mammogram for malignant neoplasm of breast MG SCREENING W CARISSA ROBERT DIGI 9. Morbid (severe) obesity due to excess calories ([facility]) 10. Body mass index (BMI) 40.0-44.9, adult ([facility]) Recommendations and Plan: 1. 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 2. Benign essential hypertension Well controlled, continue with present management. 3. Mixed hyperlipidemia Well controlled, continue with present management. 4. Dyspnea on exertion Refer to cardiology for further workup. - Ambulatory referral to Cardiology, Adult ([facility]) 5. Acquired hypothyroidism Doing well, continue with same levothyroxine dosage. 6. Age-related osteoporosis without current pathological fracture Management as per endocrinology. 7. Chronic kidney disease (CKD) stage G3b/A1, moderately decreased glomerular filtration rate (GFR)between 30-44 mL/min/1.73 square meter and albuminuria creatinine ratio less than 30* ([facility]) Stable, continue to monitor. 8. Encounter for screening mammogram for malignant neoplasm of breast - MG SCREENING W CARISSA ROBERT DIGI; Future 9. Morbid (severe) obesity due to excess calories ([facility]) Encouraged diet and exercise Rx. 10. Body mass index (BMI) 40.0-44.9, adult ([facility]) Follow up in 6 months. Orders Placed This Encounter Ambulatory referral to Cardiology, Adult ([facility]) MG SCREENING W CARISSA ROBERT DIGI olmesartan (BENICAR) 40 MG tablet PCP: ELPIDIO SERRATO MD 08/14/2023 documented in this encounter Plan of Treatment Upcoming Encounters Date Type Department Care Team (Late st Contact Info) Description 07/13/2024 1:40 PM CUPOLA OPERATOR Office Visit [facility] Medical Group Multispecialty Care - [facility] [address] [facility], [address] [place] [address] Kirill Montelongo MD [address] [place] [address] Scheduled Orders Name Type Priority Associated Diagnoses Orde r Schedule MG SCREENING W CARISSA ROBERT DIGI MAMMO Routine Encounter for screening mammogram for malignant neoplasm of breast Expected: 08/14/2023, Expires: 10/13/2024 Scheduled Referrals Name Type Priority Associated Diagnoses Orde r Schedule Ambulatory referral to Cardiology, Adult ([facility]) Referral Routine Dyspnea on exertion Ordered: 08/14/2023 documented as of this encounter Visit Diagnoses Diagnosis 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, without long-term current use of insulin, macular edema presence unspecified ([facility])- Primary Benign essential hypertension Essential hypertension, benign Mixed hyperlipidemia Dyspnea on exertion Other dyspnea and respiratory abnormality Acquired hypothyroidism Unspecified hypothyroidism Age-related osteoporosis without current pathological fracture Senile osteoporosis Chronic kidney disease (CKD) stage G3b/A1, moderately decreased glomerular filtration rate (GFR) between 30-44 mL/min/1.73 square meter and albuminuria creatinine ratio less than 30* ([facility]) Encounter for screening mammogram for malignant neoplasm of breast Other screening mammogram Morbid (severe) obesity due to excess calories ([facility]) Body mass index (BMI) 40.0-44.9, adult ([facility]) documented in this encounter Additional Health Concerns Assessment Noted Time PHQ-9 Depression Total Score: 0 08/14/19 24 7:35 AM CDT documented as of this encounter Care Teams Animal Care Service Worker Relationship Specialty Start Date End Date Elpidio Serrato MD [address] [place] [address] PCP - General INTERNAL MEDICINE 06/19/18 documented as of this encounter
--- OUTSIDE RECORDS SUMMARY | 2024-04-29 20:58 | XMS_ITS | Encounter Summary ---
Author Organization [facility] Address [address] [place] [address]. 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 Patient notes she has numbness/ tingling in arm, decreased strength in hand and inability to make a fist with left hand. Encounter Details Date Type Department Care Team (Late st Contact Info) Description 02/10/2024 1:00 PM CDT Office Visit [facility] Family & Internal Medicine [address] [address] Elpidio Serrato MD [address] [place], [place] [phone] Arm Pain (Patient c/o Lt Arm pain since CABG X3 performed at [facility]. Patient notes she has numbness/ tingling in [...] Arm pain since CABG X3 performed at [facility]. Patient notes she has numbness/ tingling in [...] tablet (8.6 mg total). vitamin D2, ergocalciferol, 19317 UNITS capsule Take 1 capsule (1.25 mg total) by mouth weekly. Glucose Blood test strip by in vitro route. No current facility-administered medications on file prior to visit. Allergies: Allergies Allergen Reactions Pseudoephedrine Tachycardia Valacyclovir Other (see comment) put me in renal failure Medical History: Past Medical History: Diagnosis Date Cataract Closed tibia fracture Diabetes mellitus ([facility]) Disease of thyroid gland Glaucoma Hypertension Surgical History: Past Surgical History: Procedure Laterality Date APPENDECTOMY CABG, ARTERIAL, THREE 01/20/2024 Performed at [facility] by Dr. Treviño CARPAL TUNNEL RELEASE [...] the day of the encounter. This includes vawj-nh-xwdg and axb-rbvg-bm-face time I provided on the day of [...] st Contact Info) Description 07/13/2024 1:40 PM BOARD CERTIFIED MUSIC THERAPIST Office Visit [facility] Multispecialty Care - [facility] [address] [facility], [address] [place] [phone] Kirill Montelongo MD 3 [place] [address] documented as of this encounter Results * NCVS\EMG ([facility]on) (02/19/2024 11:00 AM CDT) Narrative Kirill Montelongo MD - 02/19/2024 11:00 AM CDT Kirill Montelongo MD ? 02/19/2024 ??9:35 PM For sensory nerve conduction studies, the amplitude is measured [id number], the latency reported is the distal peak latency, and the conduction velocity, if measured, is determined from onset latencies and is over the forearm. For motor nerve conduction studies, the amplitude is measured ekbarrkd-ty-zlkt, the latency reported is the distal onset [...] documented as of this encounter Care Teams Internal Medicine Specialist Relationship Specialty Start Date End Date Elpidio Serrato MD [address] [place] [address] PCP - General INTERNAL MEDICINE 06/19/18 documented as of this encounter
--- OUTSIDE RECORDS SUMMARY | 2024-04-29 20:58 | XMS_ITS | Encounter Summary ---
Author Organization [facility] Address [address] [place] [address]. [place], [place] [address] [place] [address] Care Team Providers Care Traffic Control Signaler Name Role Phone Elpidio Serrato MD Primary Care Provider [phone] Encounter Details Date Type Department Care Team [...] st Contact Info) Description 07/13/2024 1:40 PM MAINTENANCE MECHANIC MILLWRIGHT Office Visit [facility] Medical [facility] Multispecialty Care - [address], [address] [place] [address] Kirill Montelongo MD [address] [place] [address] documented as of this encounter Visit Diagnoses Not on filedocumented in this encounter Additional Health Concerns Assessment Noted Time PHQ-9 Depression Total Score: 0 08/14/19 24 7:35 AM CDT documented as of this encounter Care Teams Traffic Control Signaler Relationship Specialty Start Date End Date Elpidio Serrato MD [address] [place] [address] PCP - General INTERNAL MEDICINE 06/19/18 documented as of this encounter
--- OUTSIDE RECORDS SUMMARY | 2024-04-29 20:58 | XMS_ITS | Encounter Summary ---
Author Organization [facility] Address [address] [place] [address]. [place], [place] [address] [place] [address] Care Team Providers Care Laundromat Manager Name Role Phone Elpidio Serrato MD Primary Care Provider [phone] Reason for Visit * Reason Comments Cellulitis Follow up on celluli tis R foot. Encounter Details Date Type Department Care Team (Late st Contact Info) Description 03/05/2024 3:00 PM CDT Office Visit [facility] Medical Group Family & Internal Medicine [address] [phone] Elpidio Serrato MD [address] [place] [address] Cellulitis (Follow up on cellulitis R [...] influenza vaccine? No 4. Do you have Guillain-[place] Syndrome? No Flu vaccine administered in Right [...] tablet (8.6 mg total). vitamin D2, ergocalciferol, 94350 UNITS capsule Take 1 capsule (1.25 mg total) by mouth weekly. No current facility-administered medications on file prior to visit. Allergies: Allergies Allergen Reactions Pseudoephedrine Tachycardia Valacyclovir Other (see comment) put me in renal failure Medical History: Past Medical History: Diagnosis Date Cataract Closed tibia fracture Diabetes mellitus ([facility]) Disease of thyroid gland Glaucoma Hypertension Surgical History: Past Surgical History: Procedure Laterality Date APPENDECTOMY CABG, ARTERIAL, THREE 01/20/2024 Performed at [facility] by Dr. Treviño CARPAL TUNNEL RELEASE [...] ML 3. Need for immunization against influenza [33306] Flu Vaccine, Split Virus, High Dose 65+ Years Recommendations and Plan: 1. Cellulitis and abscess of toe of right foot (Primary) Finish antibiotics as prescribed Call if increased redness or pain. 2. Need for COVID-19 vaccine PFIZER COVID-19 (12+) MRNA, LNP-S, PF, UMM-SUCROSE 30 MCG/0.3 ML 3. Need for immunization against influenza - [63202] Flu Vaccine, Split Virus, High Dose 65+ Years Orders Placed This Encounter [94057] Flu Vaccine, Split Virus, High Dose 65+ [...] st Contact Info) Description 07/13/2024 1:40 PM LABORATORY ANIMAL CARE VETERINARIAN Office Visit [facility] Medical Group Multispecialty Care - [facility] [address] [facility], [address] [place] [address] Kirill Montelongo MD 3 [place] [address] documented as of this encounter Visit Diagnoses Diagnosis Cellulitis and abscess of toe of right foot- Primary Need for COVID-19 vaccine Need for immunization against influenza Need for prophylactic vaccination and inoculation against influenza documented in this encounter Additional Health Concerns Assessment Noted Time PHQ-9 Depression Total Score: 0 08/14/19 24 7:35 AM CDT documented as of this encounter Care Teams Laundromat Manager Relationship Specialty Start Date End Date Elpidio Serrato MD [address] [place] [address] PCP - General INTERNAL MEDICINE 06/19/18 documented as of this encounter
--- OUTSIDE RECORDS SUMMARY | 2024-04-29 20:58 | XMS_ITS | Encounter Summary ---
Author Organization [facility] Address [address] [place] [address]. [place], [place] [address] [place] [address] Care Team Providers Care Talent Analyst Name Role Phone Elpidio Serrato MD Primary Care Provider [phone] Reason for Visit * Reason Onset Date Comments Radiology Results 11/28/2021 Encounter Details Date Type Department Care Team (Late st Contact Info) Description 11/28/2021 Telephone [facility] Medical Group Family & Internal Medicine [place] [address] [place] [address] Elpidio Serrato MD [address] [place] [address] Radiology Results Social History Tobacco Use [...] st Contact Info) Description 07/13/2024 1:40 PM DATASTAGE CONSULTANT Office Visit [facility] Medical [facility] Multispecialty Care - [facility] [address] [facility], [address] [place] [address] Kirill Montelongo MD 3 [place] [address] documented as of this encounter Visit Diagnoses Not on filedocumented in this encounter Additional Health Concerns Assessment Noted Time PHQ-9 Depression Total Score: 0 06/12/19 22 9:09 AM DATASTAGE CONSULTANT documented as of this encounter Care Teams Talent Analyst Relationship Specialty Start Date End Date Elpidio Serrato MD [address] [place] [address] PCP - General INTERNAL MEDICINE 06/19/18 documented as of this encounter
--- OUTSIDE RECORDS SUMMARY | 2024-04-29 20:59 | XMS_ITS | Encounter Summary ---
Author Organization [facility] Address [facility]. [place], [place] [address] [place] [address] Care Team Providers Care Reference Archivist Name Role Phone Elpidio Serrato MD Primary Care Provider [phone] Reason for Visit * Reason Comments Knee Pain right knee pain. Pat ient notes she had an injury in 2019 and worries this may be cause of her pain Encounter Details Date Type Department Care Team (Late st Contact Info) Description 06/12/2021 9:00 AM ABSORPTION AND ADSORPTION ENGINEER Office Visit [facility] Medical Group Family & Internal Medicine [address] [address] [place] [address] [place] [address] Knee Pain (right knee pain. Patient [...] COVID-19? No / Unsure 06/12/2021 8:48 AM ABSORPTION AND ADSORPTION ENGINEER documented as of this encounter Last Filed Vital Signs Vital Sign Reading Time Taken Comments Blood Pressure 109/56 06/12/2021 9:10 AM ABSORPTION AND ADSORPTION ENGINEER Pulse 83 06/12/2021 9:10 AM ABSORPTION AND ADSORPTION ENGINEER Temperature 36.3 ??C (97.4 ??F) 06/12/2021 9:10 AM CS T Respiratory Rate 16 06/12/2021 9:10 AM ABSORPTION AND ADSORPTION ENGINEER Oxygen Saturation 100% 06/12/2021 9:10 AM ABSORPTION AND ADSORPTION ENGINEER Inhaled Oxygen Concentration - - Weight 92.8 kg (204 lb 8 oz) 06/12/2021 9:10 AM ABSORPTION AND ADSORPTION ENGINEER Height 152.4 cm (5') 06/12/2021 9:10 AM ABSORPTION AND ADSORPTION ENGINEER Body Mass Index 39.94 06/12/2021 9:10 AM ABSORPTION AND ADSORPTION ENGINEER documented in this encounter Progress Notes [...] or lock. She has not been taking [id number] medications for the pain as she has [...] nightly at bedtime. ??? vitamin D2, ergocalciferol, 33402 UNITS capsule Take 1 capsule by mouth [...] MG tablet PCP: ELPIDIO SERRATO MD 06/12/2021 RPTION AND ADSORPTION ENGINEER documented in this encounter Plan of Treatment Upcoming Encounters Date Type Department Care Team (Late st Contact Info) Description 07/13/2024 1:40 PM ABSORPTION AND ADSORPTION ENGINEER Office Visit [facility] Medical Group Multispecialty Care - [facility] 3 [facility], [address] [place] [address] Kirill Montelongo MD 3 [place] [address] documented as of this encounter Results * XR KNEE RT 3V (06/12/2021 10:06 AM ABSORPTION AND ADSORPTION ENGINEER) Anatomical Region Laterality Modality Knee Radiographic Luba ging 06/12/2021 10:2 1 AM ABSORPTION AND ADSORPTION ENGINEER Impressions 06/12/2021 10:23 AM ABSORPTION AND ADSORPTION ENGINEER IMPRESSION: Osteoarthritic degenerative change, 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 Ordered By: ELPIDIO SERRATO Interpreted By: Mellisa Phipps MD, 06/12/2021 10:21 AM Narrative 06/12/2021 10:23 AM ABSORPTION AND ADSORPTION ENGINEER Examination: XR KNEE RT 3V Date : [...] Total Score: 0 06/12/19 22 9:09 AM ABSORPTION AND ADSORPTION ENGINEER documented as of this encounter Care Teams Reference Archivist Relationship Specialty Start Date End Date Elpidio Serrato MD [address] [place] [address] PCP - General INTERNAL MEDICINE 06/19/18 documented as of this encounter
--- OUTSIDE RECORDS SUMMARY | 2024-04-29 20:59 | XMS_ITS | Encounter Summary ---
Author Organization [facility] Address [address] [place] [address]. [place], [place] [address] [place] [address] Care Team Providers Care Artists' Booking Representative Name Role Phone Elpidio Serrato MD Primary Care Provider [phone] Encounter Details Date Type Department Care Team [...] Contact Info) Description 07/13/2024 1:40 PM DISTRICT MEDICAL EXAMINER Office Visit [facility] Medical Group Multispecialty Care - [address], [address] [place] [address] Kirill Montelongo MD 3 [place] [address] documented as of this encounter Visit Diagnoses Not on filedocumented in this encounter Care Teams Artists' Booking Representative Relationship Specialty Start Date End Date Elpidio Serrato MD [address] [place] [address] PCP - General INTERNAL MEDICINE 06/19/18 documented as of this encounter
--- OUTSIDE RECORDS SUMMARY | 2024-04-29 20:59 | XMS_ITS | Encounter Summary ---
Author Organization [facility] Address [address] [place] [address]. [place], [place] [address] [place] [address] Care Team Providers Care Shake Backboard Notcher Name Role Phone Unavailable Primary Care Provider Unavailabl e Encounter Details Date Type Department Care Team (Late st Contact Info) Description 02/10/2018 Abstract [facility] Medical Group Family & Internal Medicine [facility] [address] [place] [address] Elpidio Serrato MD [address] [place] [address] Social History Tobacco Use Types Packs/Day Years [...] she did not like seeing his physician programs assistant and she wanted to transfer. Patient [...] For - Manual Activation; Requested for:11Aug2018; [facility]; Due:10Sep2018;Ordered; For:Benign essential hypertension, Hyperlipidemia, Hypothyroidism, [...] For - Manual Activation; Requested for:11Aug2018; [facility]form:[facility]; Due:10Sep2018;Ordered; For:Benign essential hypertension, Hyperlipidemia, Hypothyroidism, Type 2 diabetes mellitus; Ordered By:Elpidio Serrato; 4. Creatine Kinase ( CK ) ( CPK ); Status:Hold For - Manual Activation; Requested for:11Aug2018; Perform:[facility]; Due:10Sep2018;Ordered; For:Benign essential hypertension, Hyperlipidemia, Hypothyroidism, Type 2 diabetes mellitus; Ordered By:Elpidio Serrato; 5. Free T4 ( Thyroxine ); Status:Hold For - Manual Activation; Requested for:11Aug2018; [facility]; Due:10Sep2018;Ordered; For:Benign essential hypertension, Hyperlipidemia, Hypothyroidism, Type 2 diabetes mellitus; Ordered By:Elpidio Serrato; 6. Hemoglobin A1C ( HA1C ); Status:Hold For - Manual Activation; Requested for:11Aug2018; [facility]form[facility]; Due:10Sep2018;Ordered; For:Benign essential hypertension, Hyperlipidemia, Hypothyroidism, Type 2 diabetes mellitus; Ordered By:Elpidio Serrato; 7. Lipid Profile; Status:Hold For - Manual Activation; Requested for:11Aug2018; Perform:[facility]; Due:10Sep2018;Ordered; For:Benign essential hypertension, Hyperlipidemia, Hypothyroidism, Type 2 diabetes mellitus; Ordered By:Elpidio Serrato; 8. Thyroid Stim Hormone ( TSH ); Status:Hold For - Manual Activation; Requested for:11Aug2018; Perform:[facility]; Due:10Sep2018;Ordered; For:Benign essential hypertension, Hyperlipidemia, Hypothyroidism, Type 2 diabetes mellitus; Ordered By:Elpidio Serrato; 9. TSH W Reflex Free T4; Status:Hold For - Manual Activation; Requested for:11Aug2018; Perform:. [facility]; Due:10Sep2018;Ordered; For:Benign essential hypertension, Hyperlipidemia, Hypothyroidism, Type 2 diabetes mellitus; Ordered By:Elpidio Serrato; 10. Urinalysis ( UA ) Culture If Ind; Status:Hold For - Manual Activation; Requested for:11Aug2018; Perform:. [facility]; Due:10Sep2018;Ordered; For:Benign essential hypertension, Hyperlipidemia, Hypothyroidism, Type 2 diabetes mellitus; Ordered By:Elpidio Serrato; Source: : Clean Catch 11. Urine Microalb / Creat Ratio; Status:Hold For - Manual Activation; Requested for:11Aug2018; Perform:[facility]; Due:10Sep2018;Ordered; For:Benign essential hypertension, Hyperlipidemia, Hypothyroidism, Type 2 diabetes mellitus; Ordered By:Elpidio Serrato; 12. Vitamin D 25 - Hydroxy; Status:Hold For - Manual Activation; Requested for:11Aug2018; [facility]form:. [facility]; Due:10Sep2018;Ordered; For:Benign essential hypertension, Hyperlipidemia, Hypothyroidism, [...] not available in house Class : Outside [facility] Type 2 diabetes mellitus 14. Director Marketing Analytics Referral Outpatient Director Marketing Analytics Refer for poorly contolled DM, Obesity Status: Need Information - Financial Authorization Requested for: 10Feb2018 Ordered; For: Type 2 diabetes mellitus; Ordered By: Elpidio Serrato Performed: Due: 24Feb2018 to Provider Name or Group Name: : Judy Reason : Patient Preference Class : Outside [facility] I explained to her that it is [...] Elpidio Serrato M.D.; Feb 13 2018 6:39AM ELECTRICIAN SUPERVISOR SUBSTATION (Author) documented in this encounter Plan of Treatment Upcoming Encounters Date Type Department Care Team (Late st Contact Info) Description 07/13/2024 1:40 PM ELECTRICIAN SUPERVISOR SUBSTATION Office Visit [facility] Medical Group Multispecialty Care - [facility] 3 [facility], [address] [place] [address] Kirill Montelongo MD 3 [place] [address] documented as of this encounter Visit Diagnoses Not on filedocumented in this encounter
--- OUTSIDE RECORDS SUMMARY | 2024-04-29 20:59 | XMS_ITS | Encounter Summary ---
Author Organization [facility] Address [address] [place] [address]. [place], [place] [address] [place] [address] Care Team Providers Care Driver Utility Worker Name Role Phone Elpidio Serrato MD Primary Care Provider [phone] Encounter Details Date Type Department Care Team (Late st Contact Info) Description 12/27/2020 Abstract [facility] [address] [place] [address] Abstract, Doc [facility] Social History Tobacco [...] st Contact Info) Description 07/13/2024 1:40 PM CHARGE POSTER Office Visit [facility] Medical Group Multispecialty Care - [address], [address] [place] [address] Kirill Montelongo MD 3 [place] [address] documented as of this encounter Procedures Procedure Name Priority Date/Time Associated Diagnosis Comments HEMOGLOBIN, GLYCOSYLATED Routine 07/13/2020 documented in this encounter Results * HEMOGLOBIN, GLYCOSYLATED (07/13/2020) HGB A1C 6.8 % 07/13/2020 us Doc [facility] Abstract LABORATORY Final Result documented in this encounter Visit Diagnoses Not on filedocumented in this encounter Care Teams Driver Utility Worker Relationship Specialty Start Date End Date Elpidio Serrato MD [address] [place] [address] PCP - General INTERNAL MEDICINE 06/19/18 documented as of this encounter
--- OUTSIDE RECORDS SUMMARY | 2024-04-29 20:59 | XMS_ITS | Encounter Summary ---
Author Organization [facility] Address [address] [place] [address]. [place], [place] [address] [place] [address] Care Team Providers Care Drawer In Dobby Loom Name Role Phone Elpidio Serrato MD Primary Care Provider [phone] Encounter Details Date Type Department Care Team (Late st Contact Info) Description 02/16/2021 Abstract [facility] [address] [place] [address] Abstract, Doc [facility] Social History Tobacco [...] st Contact Info) Description 07/13/2024 1:40 PM TACK MAKER Office Visit [facility] Medical Group Multispecialty Care - [facility] 3 [facility], [address] [place] [address] Kirill Montelongo MD 3 [place] [address] documented as of this encounter Procedures Procedure [...] documented as of this encounter Care Teams Drawer In Dobby Loom Relationship Specialty Start Date End Date Elpidio Serrato MD [address] [place] [address] PCP - General INTERNAL MEDICINE 06/19/18 documented as of this encounter
--- OUTSIDE RECORDS SUMMARY | 2024-04-29 20:59 | XMS_ITS | Encounter Summary ---
Author Organization [facility] Address [address] [place] [address]. [place], [place] [address] [place] [address] Care Team Providers Care Local Company Flatbed Truck Driver Name Role Phone Elpidio Serrato MD Primary Care Provider [phone] Reason for Visit * Reason Onset Date Comments Follow Up Call 02/12/2020 Encounter Details Date Type Department Care Team (Late st Contact Info) Description 02/12/2020 Telephone [facility] Medical Group Family & Internal Medicine [address] [place] [address] Elpidio Serrato MD [facility] [place] [address] Follow Up Call Social History [...] st Contact Info) Description 07/13/2024 1:40 PM DYER AND WASHER Office Visit [facility] Medical Group Multispecialty Care - [facility] 3 [facility], [address] [place] [address] Kirill Montelongo MD 3 [place] [address] documented as of this encounter Visit Diagnoses Not on filedocumented in this encounter Care Teams Local Company Flatbed Truck Driver Relationship Specialty Start Date End Date Elpidio Serrato MD [address] [place] [address] PCP - General INTERNAL MEDICINE 06/19/18 documented as of this encounter
--- OUTSIDE RECORDS SUMMARY | 2024-04-29 20:59 | XMS_ITS | Encounter Summary ---
Author Organization [facility] Address [address] [place] [address]. [place], [place] [address] [place] [address] Care Team Providers Care Well Point Pumping Supervisor Name Role Phone Elpidio Jimenez MD Primary Care Provider [phone] Reason for Visit * Reason Comments Follow Up Hypertension Hyperlipidemia Diabetes Encounter Details Date Type Department Care Team (Late st Contact Info) Description 08/12/2018 8:40 AM CDT [facility] Family & Internal Medicine [address] [address] Elpidio Jimneez MD [address] [place] [address] Follow Up; Hypertension; Hyperlipidemia; Diabetes Social [...] nightly at bedtime. ??? vitamin D2, ergocalciferol, 99696 UNITS capsule Take 1 capsule by mouth [...] file Gets together: Not on file Attends episcopalian service: Not on file Active member of [...] presence unspecified (CMS/HCC) Follows with endocrine at [place], they are adjusting medications 6. Nonproliferative diabetic retinopathy (CMS/HCC) Follows with [facility]. Orders Placed This Encounter ??? [[id number]] Prevnar 13 (Pneumococcal) Cannot display discharge medications since this is not an admission. PCP: ELPIDIO JIMENEZ MD 08/12/2018 documented in this encounter Plan of Treatment Upcoming Encounters Date Type Department Care Team (Late st Contact Info) Description 07/13/2024 1:40 PM RESIDENTIAL COORDINATOR [facility] Multispecialty Care - [address], [address] [place] [address] Kirill Montelongo MD [address] [place] [address] documented as of this encounter Visit Diagnoses [...] (pneumococcus) documented in this encounter Care Teams Well Point Pumping Supervisor Relationship Specialty Start Date End Date Elpidio Jimenez MD [address] [place] [address] PCP - General INTERNAL MEDICINE 06/19/18 documented as of this encounter
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
--- OUTSIDE RECORDS SUMMARY | 2024-04-29 20:59 | XMS_ITS | Encounter Summary ---
Author Organization [facility] Address [address] [place] [address]. [place], [place] [address] [place] [address] Care Team Providers Care Hydro Generation Manager Name Role Phone Elpidio Serrato MD Primary Care Provider [phone] Reason for Visit * Reason Comments Form (SCAN) [employer] orthopaedi cs Encounter Details Date Type Department Care Team (Late Contact Info) Description 06/19/2018 Scan HEALTH INFO SRVCS Scanned, Documents Form (SCAN) (PayPal orthopaedics) Social History Tobacco Use Types Packs/Day [...] (Late Contact Info) Description 07/13/2024 1:40 PM SPOT BILLING CLERK Office Visit [facility] Medical Group Multispecialty Care - [facility] 3 [facility], [address] [place] [address] Kirill Montelongo MD 3 [place] [address] documented as of this encounter Visit Diagnoses Not on filedocumented in this encounter Care Teams Hydro Generation Manager Relationship Specialty Start Date End Date Elpidio Serrato MD [address] [place] [address] PCP - General INTERNAL MEDICINE 06/19/18 documented as of this encounter
--- OUTSIDE RECORDS SUMMARY | 2024-04-29 20:59 | XMS_ITS | Encounter Summary ---
Author Organization [facility] Address [address] [place] [address]. [place], [place] [address] [place] [address] Care Team Providers Care Student Finance Specialist Name Role Phone Elpidio Serrato MD Primary Care Provider [phone] Reason for Visit * Reason Comments Medicare Wellness Encounter Details Date Type Department Care Team (Late st Contact Info) Description 02/15/2021 9:20 AM CDT Office Visit [facility] Medical Group Family & Internal Medicine [address] [address] Medicare Wellness Social History Tobacco Use Types [...] COVID-19? No / Unsure 06/12/2021 8:48 AM MINIATURE TRAIN DRIVER documented as of this encounter Patient Instructions [...] Written by the doctors and editors at [facility] What are advance directives???--??Advance directives are legal [...] proxy (also called the durable power of assistant prosecuting attorney for health care) - The health [...] process is complete. This topic retrieved from [employer]. on: May 20, 2018. Topic 93507 Version 11.0 table 1: Resources that can help you make advance directives ?? Address Phone number Website [facility] [address], [place] Toll-free: (751) [facility] [ ] http://assets.aarp.org/external_sites/ caregiving/multimedia/EG_AdvanceDirectives.html Aging with Dignity (Five Wishes form) [address] [place] [address] Toll-free: (668) 5WISHNAOMI [ ] www.agingwithdignity.org CaringInfo ?? Toll-free: www.caringinfo.org [employer]. [address] [place] [address] [email or web address] [email or web address].Accellion EXERCISE As an older adult, regular physical [...] your heart beating faster. From pushing a licensing director, to taking a dance class, to biking [...] pain ever and you need to go [facility]. An exam will help your doctor [...] you. Some of these are massage, acupuncture, home care manager rn, and relaxation. What drugs may be needed? [...] 1 SLUMS #9: Clock 4 SLUMS #10a: Linefork 1 SLUMS #10b: Size 1 SLUMS #11: [...] SCORE 1 0 The ASCVD Risk score ([place] Tanneryprema JEFFRIES Jr., et al., 2013) failed to [...] times daily. 3 ??? vitamin D2, ergocalciferol, 11218 UNITS capsule Take 1 capsule by mouth [...] st Contact Info) Description 07/13/2024 1:40 PM MINIATURE TRAIN DRIVER Office Visit [facility] Medical Group Multispecialty Care - [facility] 3 [facility], [address] [place] [address] Kirill Montelongo MD 3 [place] [address] documented as of this encounter Visit Diagnoses Diagnosis Need for immunization against influenza Need for prophylactic vaccination and inoculation against influenza Routine general medical examination at a health care facility documented in this encounter Additional Health Concerns Assessment Noted Time PHQ-9 Depression Total Score: 1 02/16/20 21 9:46 AM CDT documented as of this encounter Care Teams Student Finance Specialist Relationship Specialty Start Date End Date Elpidio Serrato MD [address] [place] [address] PCP - General INTERNAL MEDICINE 06/19/18 documented as of this encounter
--- OUTSIDE RECORDS SUMMARY | 2024-04-29 20:59 | XMS_ITS | Encounter Summary ---
Author Organization [facility] Address [address] [place] [address]. [place], [place] [address] [place] [address] Care Team Providers Care Boxcar Weigher Name Role Phone Elpidio Serrato MD Primary Care Provider [phone] Encounter Details Date Type Department Care Team (Late st Contact Info) Description 10/19/2019 Abstract Business Office [address] [place] [address] Abstract, Doc [facility] Social History Tobacco Use [...] st Contact Info) Description 07/13/2024 1:40 PM CASINO FLOOR PERSON Office Visit [facility] Medical Group Multispecialty Care - [address], [address] [place] [address] Kirill Montelongo MD 3 [place] [address] documented as of this encounter Procedures Procedure Name Priority Date/Time Associated Diagnosis Comments HEMOGLOBIN, GLYCOSYLATED Routine 04/01/2019 documented in this encounter Results * HEMOGLOBIN, GLYCOSYLATED (04/01/2019) HGB A1C 7.7 % 04/01/2019 us Doc [facility] Abstract LABORATORY Final Result documented in this encounter Visit Diagnoses Not on filedocumented in this encounter Care Teams Boxcar Weigher Relationship Specialty Start Date End Date Elpidio Serrato MD [address] [place] [address] PCP - General INTERNAL MEDICINE 06/19/18 documented as of this encounter
--- OUTSIDE RECORDS SUMMARY | 2024-04-29 20:59 | XMS_ITS | Encounter Summary ---
Author Organization [facility] Address [address] [place] [address]. [place], [place] [address] [place] [address] Care Team Providers Care Neon Glass Bender Name Role Phone Elpidio Serrato MD Primary Care Provider Reason for Visit * Reason Onset Date Comments COVID-19 04/14/2020 Encounter Details Date Type Department Care Team (Late st Contact Info) Description 04/14/2020 Telephone [facility] Family & Internal Medicine [place] [address] [place] [address] Elpidio Serrato MD [facility] [place] [address] COVID-19 Social History Tobacco Use [...] will go to ER , patient v/u UTER HELP DESK REPRESENTATIVE * Elpidio Serrato MD - 04/14/2020 2:46 PM CST It sounds like she has gastroenteritis and not COVID if she is not having any respiratory symptoms.If she still would like a COVID test we can arrange for one to be done through [place]. UTER HELP DESK REPRESENTATIVE * Ruth Dewey MA - 04/14/2020 10:35 [...] sick? NO Comorbidities: Obesity, HTN, DM, CB# [phone] Allergies: Pseudoephedrine and Valacyclovir Pharmacy: [facility] UTER HELP DESK REPRESENTATIVE * Doris Alvarez - 04/14/2020 9:32 AM CST Patient needing triaged, sinus issues, not regaining strength UTER HELP DESK REPRESENTATIVE documented in this encounter Plan of Treatment Upcoming Encounters Date Type Department Care Team (Late st Contact Info) Description 07/13/2024 1:40 PM COMPUTER HELP DESK REPRESENTATIVE Office Visit [facility] Multispecialty Care - [facility] 3 [facility], [address] [place] [phone] Kirill Montelongo MD 3 [place] [address] documented as of this encounter Visit Diagnoses Not on filedocumented in this encounter Care Teams Neon Glass Bender Relationship Specialty Start Date End Date Elpidio Serrato MD [address] [place] [address] PCP - General INTERNAL MEDICINE 06/19/18 documented as of this encounter
--- OUTSIDE RECORDS SUMMARY | 2024-04-29 20:59 | XMS_ITS | Encounter Summary ---
Author Organization [facility] Address [address] [place] [address]. [place], [place] [address] [place] [address] Care Team Providers Care Phototypesetting Equipment Monitor Name Role Phone Unavailable Primary Care Provider Unavailabl e Encounter Details Date Type Department Care Team (Latest Contact Info) Description 03/07/2018 Abstract [facility] , Austin Patel MD Social [...] st Contact Info) Description 07/13/2024 1:40 PM NERVE SPECIALIST Office Visit [facility] Multispecialty Care - [facility] 3 [facility], [address] [place] [address] Kirill Montelongo MD 3 [place] [address] documented as of this encounter Visit Diagnoses Not on filedocumented in this encounter
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
--- OUTSIDE RECORDS SUMMARY | 2024-04-29 20:59 | XMS_ITS | Encounter Summary ---
Author Organization [facility] Address [address] [place] [address]. [place], [place] [address] [place] [address] Care Team Providers Care Hygiene Coordinator Name Role Phone Elpidio Serrato MD Primary Care Provider Reason for Visit * Reason Comments Consent [...] Center Contact Info) Description 07/13/2024 1:40 PM MOTORCYCLE TESTER Office Visit [facility] Multispecialty Care - [facility] 3 [facility], [address] [place] [address] Kirill Montelongo MD 3 [place] [address] documented as of this encounter Visit Diagnoses Not on filedocumented in this encounter Care Teams Hygiene Coordinator Relationship Specialty Start Date End Date Elpidio Serrato MD [address] [place] [address] PCP - General INTERNAL MEDICINE 06/19/18 documented as of this encounter
--- OUTSIDE RECORDS SUMMARY | 2024-04-29 20:59 | XMS_ITS | Encounter Summary ---
Author Organization [facility] Address [address] [place] [address]. [place], [place] [address] [place] [address] Care Team Providers Care Press Machine Operator Name Role Phone Elpidio Serrato MD Primary Care Provider [phone] Encounter Details Date Type Department Care Team [...] st Contact Info) Description 07/13/2024 1:40 PM AMPHIBIAN CREWMEMBER Office Visit [facility] Multispecialty Care - [facility] 3 [facility], [address] [place] [address] Kirill Montelongo MD 3 [place] [address] documented as of this encounter Visit Diagnoses Not on filedocumented in this encounter Care Teams Press Machine Operator Relationship Specialty Start Date End Date Elpidio Serrato MD [address] [place] [address] PCP - General INTERNAL MEDICINE 06/19/18 documented as of this encounter
--- OUTSIDE RECORDS SUMMARY | 2024-04-29 20:59 | XMS_ITS | Encounter Summary ---
Author Organization [facility] Address [address] [place] [address]. [place], [place] [address] [place] [address] Care Team Providers Care Loader Helper Sorting Yard Name Role Phone Unavailable Primary Care Provider [...] Upcoming Encounters Date Type Department Care Team ([facility] Contact Info) Description 07/13/2024 1:40 PM DESK ASSISTANT Office Visit [facility] Medical Group Multispecialty Care - [address], [address] [place] [address] Kirill Montelongo MD 3 [place] [address] documented as of this encounter Visit Diagnoses Not on filedocumented in this encounter
--- OUTSIDE RECORDS SUMMARY | 2024-04-29 20:59 | XMS_ITS | Encounter Summary ---
Author Organization [facility] Address [address] [place] [address]. [place], [place] [address] [place] [address] Care Team Providers Care Wrapper Hands Sprayer Name Role Phone Elpidio Serrato MD Primary Care Provider [phone] Encounter Details Date Type Department Care Team [...] st Contact Info) Description 07/13/2024 1:40 PM FORMSTONE FITTER Office Visit [facility] Multispecialty Care - [address], [address] [place] [address] Kirill Montelongo MD [address] [place] [address] documented as of this encounter Visit Diagnoses Not on filedocumented in this encounter Care Teams Wrapper Hands Sprayer Relationship Specialty Start Date End Date Elpidio Serrato MD [address] [place] [address] [phone] PCP - General INTERNAL MEDICINE 06/19/18 documented as of this encounter
--- OUTSIDE RECORDS SUMMARY | 2024-04-29 20:59 | XMS_ITS | Encounter Summary ---
Author Organization [facility] Address [address] [place] [address]. [place], [place] [address] [place] [address] Care Team Providers Care Communications Engineer Name Role Phone Elpidio Serrato MD Primary Care Provider [phone] Encounter Details Date Type Department Care Team [...] st Contact Info) Description 07/13/2024 1:40 PM TOMOGRAPHY TECHNOLOGIST Office Visit [facility] Mult[facility] Care [facility] 3 [facility], [address] [place] [address] Kirill Montelongo MD 3 [place] [address] documented as of this encounter Visit Diagnoses Not on filedocumented in this encounter Additional Health Concerns Assessment Noted Time PHQ-9 Depression Total Score: 1 02/16/20 21 9:46 AM CDT documented as of this encounter Care Teams Communications Engineer Relationship Specialty Start Date End Date Elpidio Serrato MD [address] [place] [address] [phone] PCP - General INTERNAL MEDICINE 06/19/18 documented as of this encounter
--- OUTSIDE RECORDS SUMMARY | 2024-04-29 20:59 | XMS_ITS | Encounter Summary ---
Author Organization [facility] Address [address] [place] [address]. [place], [place] [address] [place] [address] Care Team Providers Care Mold Tooling Technician Name Role Phone Elpidio Serrato MD Primary Care Provider [phone] Encounter Details Date Type Department Care Team [...] st Contact Info) Description 07/13/2024 1:40 PM LEGAL DEPARTMENT MANAGER Office Visit [facility] Medical Group Multispecialty Care - [address], [address] [place] [address] Kirill Montelongo MD 3 [place] [address] documented as of this encounter Visit Diagnoses Not on filedocumented in this encounter Care Teams Mold Tooling Technician Relationship Specialty Start Date End Date Elpidio Serrato MD [address] [place] [address] PCP - General INTERNAL MEDICINE 06/19/18 documented as of this encounter
--- OUTSIDE RECORDS SUMMARY | 2024-04-29 20:59 | XMS_ITS | Encounter Summary ---
Author Organization [facility] Address [address] [place] [address]. [place], [place] [address] [place] [address] Care Team Providers Care Sheet Metal Layout Worker Name Role Phone Elpidio Serrato MD Primary Care Provider [phone] Reason for Visit * Reason Comments Imm/Inj Encounter Details Date Type Department Care Team ([facility] Contact Info) Description 02/16/2020 11:40 AM CDT Allied Health/Nurse Visit [facility] Medical Group Family & Internal Medicine [address] [phone] Imm/Inj Social History Tobacco Use Types Packs/Day [...] Upcoming Encounters Date Type Department Care Team ([facility] Contact Info) Description 07/13/2024 1:40 PM CASH CHECKER Office Visit [facility] Group Multispecialty Care - [facility] 3 [facility], [address] [place] [address] Kirill Montelongo MD 3 [place] [address] documented as of this encounter Visit Diagnoses Diagnosis Need for immunization against influenza- Primary Need for prophylactic vaccination and inoculation against influenza documented in this encounter Care Teams Sheet Metal Layout Worker Relationship Specialty Start Date End Date Elpidio Serrato MD [address] [place] [address] [phone] PCP - General INTERNAL MEDICINE 06/19/18 documented as of this encounter
--- OUTSIDE RECORDS SUMMARY | 2024-04-29 20:59 | XMS_ITS | Encounter Summary ---
Author Organization [facility] Address [address] [place] [address]. [place], [place] [address] [place] [address] Care Team Providers Care Industrial X Ray Operator Name Role Phone Unavailable Primary Care [...] st Contact Info) Description 07/13/2024 1:40 PM OXYACETYLENE BURNER Office Visit [facility] Group Multispecialty Care - [facility] 3 [facility], [address] [place] [address] Kirill Montelongo MD 3 [place] [address] documented as of this encounter Visit Diagnoses Not on filedocumented in this encounter
--- OUTSIDE RECORDS SUMMARY | 2024-04-29 20:59 | XMS_ITS | Encounter Summary ---
Author Organization [facility] Address [address] [place] [address]. [place], [place] [address] [place] [address] Care Team Providers Care Grain Commodity Manager Name Role Phone Elpidio Serrato MD Primary Care Provider [phone] Encounter Details Date Type Department Care Team [...] st Contact Info) Description 07/13/2024 1:40 PM DIRECT SERVICE WORKER Office Visit [facility] Multispecialty Care - [address], [address] [place] [address] Kirill Montelongo MD [address] [place] [address] documented as of this encounter Visit Diagnoses Not on filedocumented in this encounter Care Teams Grain Commodity Manager Relationship Specialty Start Date End Date Elpidio Serrato MD [address] [place] [address] [phone] PCP - General INTERNAL MEDICINE 06/19/18 documented as of this encounter
--- OUTSIDE RECORDS SUMMARY | 2024-04-29 20:59 | XMS_ITS | Encounter Summary ---
Author Organization [facility] Address [address] [place] [address]. [place], [place] [address] [place] [address] Care Team Providers Care Alum Mixer Name Role Phone Elpidio Serrato MD Primary Care Provider [phone] Encounter Details Date Type Department Care Team [...] st Contact Info) Description 07/13/2024 1:40 PM PASTE UP WORKER Office Visit [facility] Medical Group Multispecialty Care - [address], [address] [place] [address] Kirill Montelongo MD 3 [place] [address] documented as of this encounter Visit Diagnoses Not on filedocumented in this encounter Care Teams Alum Mixer Relationship Specialty Start Date End Date Elpidio Serrato MD [address] [place] [address] [phone] PCP - General INTERNAL MEDICINE 06/19/18 documented as of this encounter
--- OUTSIDE RECORDS SUMMARY | 2024-04-29 20:59 | XMS_ITS | Encounter Summary ---
Author Organization [facility] Address [address] [place] [address]. [place], [place] [address] [place] [address] Care Team Providers Care Tele Tech Name Role Phone Elpidio Serrato MD Primary Care Provider [phone] Reason for Visit * Reason Comments Lab [...] st Contact Info) Description 07/13/2024 1:40 PM WORKFORCE CONSULTANT Office Visit [facility] Medical Group Multispecialty Care - [address], [address] [place] [address] Kirill Montelongo MD [address] [place] [address] documented as of this encounter Procedures Procedure Name Priority Date/Time Associated Diagnosis Comments OUTSIDE LAB (SCAN ORDER) Routine 06/16/2018 documented in this encounter Results * OUTSIDE LAB (06/16/2018) 06/16/2018 us Documents Scanned SCANNING Edited Result - Final documented in this encounter Visit Diagnoses Not on filedocumented in this encounter Care Teams Tele Tech Relationship Specialty Start Date End Date Elpidio Serrato MD [address] [place] [address] PCP - General INTERNAL MEDICINE 06/19/18 documented as of this encounter
--- OUTSIDE RECORDS SUMMARY | 2024-04-29 20:59 | XMS_ITS | Encounter Summary ---
Author Organization [facility] Address [address] [place] [address]. [place], [place] [address] [place] [address] Care Team Providers Care Material Lister Name Role Phone Unavailable Primary Care Provider [...] (Late Contact Info) Description 07/13/2024 1:40 PM REGULATORY SPECIALIST Office Visit [facility] Medical Group Multispecialty Care - [facility] 3 [facility], [address] [place] [address] Kirill Montelongo MD 3 [place] [address] documented as of this encounter Visit Diagnoses Not on filedocumented in this encounter
--- OUTSIDE RECORDS SUMMARY | 2024-04-29 20:59 | XMS_ITS | Encounter Summary ---
Author Organization [facility] Address [address] [place] [address]. [place], [place] [address] [place] [address] Care Team Providers Care Stock Patch Sawyer Name Role Phone Elpidio Serrato MD Primary Care Provider [phone] Reason for Visit * Reason Comments Sore Throat Started Saturday Cough occasionally product lisa, Started Saturday Headache Started Saturday Fever 101 degree F, Last n ight Encounter Details Date Type Department Care Team (Late st Contact Info) Description 01/07/2019 9:40 AM CDT Office Visit [facility] Medical Group Family & Internal Medicine [address] [address] Elpidio Serrato MD [address] [place] [address] Sore Throat (Started Saturday); Cough (occasionally productive, [...] nightly at bedtime. ??? vitamin D2, ergocalciferol, 90992 UNITS capsule Take 1 capsule by mouth [...] file Gets together: Not on file Attends scientology service: Not on file Active member of [...] st Contact Info) Description 07/13/2024 1:40 PM SUPERVISOR VARNISH Office Visit [facility] Medical Group Multispecialty Care - [address], [address] [place] [address] Kirill Montelongo MD 3 [place] [address] documented as of this encounter Results * [...] organism documented in this encounter Care Teams Stock Patch Sawyer Relationship Specialty Start Date End Date Elpidio Serrato MD [address] [place] [address] PCP - General INTERNAL MEDICINE 06/19/18 documented as of this encounter
--- OUTSIDE RECORDS SUMMARY | 2024-04-29 20:59 | XMS_ITS | Encounter Summary ---
Author Organization [facility] Address [address] [place] [address]. [place], [place] [address] [place] [address] Care Team Providers Care Community Services Officer Name Role Phone Elpidio Jimenez MD Primary Care Provider [phone] Reason for Visit * Reason Comments Derm Problem wound under pannus. Patient has been using JAZMYN on it and keep it dry and clean. x 2 weeks Encounter Details Date Type Department Care Team (Late st Contact Info) Description 10/12/2019 3:00 PM CDT Office Visit [facility] Medical Group Family & Internal Medicine [address] [address] Elpidio Jimenez MD [address] [place] [address] [phone] Derm Problem (wound under pannus. Patient has [...] nightly at bedtime. ??? vitamin D2, ergocalciferol, 97761 UNITS capsule Take 1 capsule by mouth [...] file Gets together: Not on file Attends shinto service: Not on file Active member of [...] st Contact Info) Description 07/13/2024 1:40 PM COLOR ROOM ATTENDANT Office Visit [facility] Medical [facility] Multispecialty Care - [facility] 3 [facility], [address] [place] [address] Kirill Montelongo MD 3 [place] [address] documented as of this encounter Visit Diagnoses Diagnosis Abscess of skin of abdomen- Primary Cellulitis and abscess of trunk documented in this encounter Care Teams Community Services Officer Relationship Specialty Start Date End Date Elpidio Jimenez MD [address] [place] [address] PCP - General INTERNAL MEDICINE 06/19/18 documented as of this encounter
--- OUTSIDE RECORDS SUMMARY | 2024-04-29 20:59 | XMS_ITS | Encounter Summary ---
Author Organization [facility] Address [address] [place] [address]. [place], [place] [address] [place] [address] Care Team Providers Care Track Vehicle Repairer Name Role Phone Elpidio Serrato MD Primary Care Provider [phone] Reason for Visit * Reason Comments Immunization/Injection [...] Upcoming Encounters Date Type Department Care Team ([facility] Contact Info) Description 07/13/2024 1:40 PM CHIEF PHARMACIST Office Visit [facility] Medical Group Multispecialty Care - [address], [address] [place] [address] Kirill Montelongo MD 3 [place] [address] documented as of this encounter Visit Diagnoses Not on filedocumented in this encounter Care Teams Track Vehicle Repairer Relationship Specialty Start Date End Date Elpidio Serrato MD [address] [place] [address] [phone] PCP - General INTERNAL MEDICINE 06/19/18 documented as of this encounter
--- OUTSIDE RECORDS SUMMARY | 2024-04-29 20:59 | XMS_ITS | Encounter Summary ---
Author Organization [facility] Address [address] [place] [address]. [place], [place] [address] [place] [address] Care Team Providers Care Manager Talent Management Name Role Phone Elpidio Serrato MD Primary Care Provider [phone] Reason for Visit * Reason Comments Lab [...] Contact Info) Description 07/13/2024 1:40 PM STEM ROLLER OR CRUSHER OPERATOR Office Visit [facility] Medical Group Multispecialty Care - [address], [address] [place] [address] Kirill Montelongo MD [address] [place] [address] documented as of this encounter Procedures Procedure Name Priority Date/Time Associated Diagnosis Comments IMAGE GENERIC Routine 06/12/2018 documented in this encounter Results * IMAGE STUDY (06/12/2018) Anatomical Region Laterality Modality Other us Documents Scanned SCANNING Final Result documented in this encounter Visit Diagnoses Not on filedocumented in this encounter Care Teams Manager Talent Management Relationship Specialty Start Date End Date Elpidio Serrato MD [address] [place] [address] PCP - General INTERNAL MEDICINE 06/19/18 documented as of this encounter
--- OUTSIDE RECORDS SUMMARY | 2024-04-29 21:04 | XMS_ITS | Encounter Summary ---
Author Organization [facility] Address [address] [place] [address] Phone Care Team Providers Care Fast Food Shift Lead Name Role Phone Elpidio Serrato MD Primary Care Provider [phone] Encounter Details Date Type Department Care Team (Late st Contact Info) Description 04/21/2024 Telephone [facility] Cardiology [address] [facility] 8th [place] [address] [place] [id number] Rater, JMAES Dunlap [address] [facility] [address] [place] [address] Social History Tobacco Use Types Packs/Day Years [...] on file Legal Sex Female 3:59 AM MEDTRONICS TECHNICIAN Gender Identity Female 05/13/2021 4:21 PM MEDTRONICS TECHNICIAN Sexual Orientation Not on file documented as of this encounter Ordered Prescriptions Prescription Sig Dispense Quantity Refills Last Filled Start Date End Date clopidogreL (PLAVIX) 75 mg tablet Take 1 tablet (75 mg total) by mouth daily 90 tablet 3 04/21/2024 04/21/2025 documented in this encounter Miscellaneous Notes * Telephone Encounter - Karen Banda CMA - 04/21/2024 2:52 PM MEDTRONICS TECHNICIAN Requested Prescriptions Signed Prescriptions Disp Refills clopidogreL (PLAVIX) 75 mg tablet 90 tablet 3 Sig: Take 1 tablet (75 mg total) by mouth daily Authorizing Provider: GAURAV ROBLERO Ordering User: KAREN BANDA Last provider visit: 02/14/2024 Next provider visit: 08/18/2024 Preferred pharmacy: [facility]/pharmacy #[id number] - [place], [place] - [address] [facility] [address] Was med refilled or sent back to Provider Pool for clarification? MED WAS REFILLED RONICS TECHNICIAN * Telephone Encounter - Kalpana Sheth - 04/21/2024 12:14 PM CST Rater Pt needs a new prescription for plavix 75 mg. 90 day supply Pharmacy - [facility] at [address] RONICS TECHNICIAN documented in this encounter Plan of Treatment Not on file documented as of this encounter Visit Diagnoses Not on filedocumented in this encounter Discontinued Medications Medication Sig Discontinue Reason Start Date End Da te clopidogreL (PLAVIX) 75 mg tablet Take 1 tablet (75 mg total) by mouth daily Reorder 01/29/2024 04/21/2024 documented as of this encounter Care Teams Fast Food Shift Lead Relationship Specialty Start Date End Date Elpidio Serrato MD PCP - General Internal Medicine 06/09/18 documented as of this encounter
--- OUTSIDE RECORDS SUMMARY | 2024-04-29 21:04 | XMS_ITS | Encounter Summary ---
Author Organization [facility] Address [address] [place] [address] Phone Care Team Providers Care Clean Up Supervisor Name Role Phone Elpidio Serrato MD Primary Care Provider [phone] Encounter Details Date Type Department Care Team (Latest Contact Info) Description 03/30/2024 10:30 AM STAFF ANESTHETIST Office Visit [facility] Endocrinology Metabolism and Lipid [address] [facility] 13th [place] [address] [place] [address] Lia Mariano, VOCATIONAL TRAINING TEACHER [address] [place] [address] Type 2 diabetes mellitus with stage 3a [...] file Legal Sex Female 3:59 AM STAFF ANESTHETIST Gender Identity Female 05/13/2021 4:21 PM STAFF ANESTHETIST Sexual Orientation Not on file documented as of this encounter Last Filed Vital Signs Vital Sign Reading Time Taken Comments Blood Pressure 121/74 03/30/2024 10:22 AM STAFF ANESTHETIST Pulse 78 03/30/2024 10:22 AM STAFF ANESTHETIST Temperature 36.7 ??C (98.1 ??F) 03/30/2024 10:[address] Respiratory Rate - - Oxygen Saturation - - Inhaled Oxygen Concentration - - Weight 86.3 kg (190 lb 3.2 oz) 03/30/2024 10:22 AM STAFF ANESTHETIST Height 149.9 cm (4' 11 ) 03/30/2024 10:22 AM STAFF ANESTHETIST Body Mass Index 38.42 03/30/2024 10:22 AM STAFF ANESTHETIST documented in this encounter Patient Instructions * Patient Instructions* Lia Mariano NP - 03/30/2024 10:30 AM STAFF ANESTHETIST 1. Type 2 diabetes mellitus with stage [...] a dental exam. Vitamin d 83 (10/2023) F ANESTHETIST F ANESTHETIST documented in this encounter Ordered Prescriptions Prescription [...] Endocrinology Outpatient Clinic Note Patient: Isabelle Lutz, 74 y.o. female (: 1950 ) PCP: [...] 7.1% (02/2024) Pt underwent 3-vessel CABG at [facility] on 01/20/2024 for CABG x3 [...] 10 mg Daily. CGM Interpretation - Sensor: [employer]7 Mobile - Wear time: 99.6% - Indication [...] with pt. 01/2024: 3- vessel CABG at [facility] for CABG x3 with OROZCO [...] (congestive heart failure) ([facility]/HCC) ([facility]) Clavicle enlargement 06/16/2018 Will image to determine etiology. Coronary artery disease Coronary artery disease due to calcified coronary lesion 01/20/2024 Diabetes mellitus (HCC) Diabetic neuropathy (HCC) 01/21/2024 Diabetic retinopathy ([facility]) Glaucoma Hypertension Hypothyroidism 11/13/2014 Knee pain 01/04/2015 [...] CATARACT EXTRACTION Right 06/14/2022 CE/IOL + goniotomy AR APPENDECTOMY unkown dates per pt AR DELIVERY ONLY Section - in 1972 and 1975 (Added by Conv) AR TENDON SHEATH INCISION Hand Incision Tendon Sheath [...] labs, imaging, and diagnostics independently reviewed in [facility] and commented on below. Allergies: Pseudoephedrine [...] dental exam. Vitamin d 83 (10/2023) [facility]ON[facility] Division of Endocrinology, Metabolism, & Lipid Research [address] [place] [address], [place] [address] F ANESTHETIST documented in this encounter Plan of Treatment Not on file documented as of this encounter Procedures Procedure Name Priority Date/Time Associated Diagnosis Comments CBC WITH AUTO DIFFERENTIAL Routine 04/27/2024 9:24 AM STAFF ANESTHETIST Anemia, unspecified type documented in this encounter Results * (ABNORMAL) CBC with auto differential (04/27/2024 9:24 AM STAFF ANESTHETIST) WBC 7.8 3.8 - 10.8 Thousand/u L [employer] christiano Campbell RBC, POC 4.16 3.80 - 5.10 Million/uL [employer] christiano Campbell Hgb 11.6(L) 11.7 - 15.5 [...] Diagnostics-S t Adrian Blood 04/27/2024 9:24 AM STAFF ANESTHETIST 04/27/2024 9:25 AM STAFF ANESTHETIST Lia Mariano VOCATIONAL TRAINING TEACHER LAB BLOOD ORDERABLES Phyllis l Result JOSE [facility] [place] [address] [place] [address] documented in this encounter Visit Diagnoses Diagnosis Type 2 diabetes mellitus with stage 3a chronic kidney disease, with long-term current use of insulin ([facility])- Primary Hypothyroidism, unspecified type Anemia, unspecified type [...] documented as of this encounter Care Teams Clean Up Supervisor Relationship Specialty Start Date End Date Elpidio Serrato MD PCP - General Internal Medicine 06/09/18 documented as of this encounter
--- OUTSIDE RECORDS SUMMARY | 2024-04-29 21:04 | XMS_ITS | Clinical Summary ---
Author Organization [facility] Address [address] [place] [address] Care Team Providers Care Electrocardiogram Technician Name Role Phone Elpidio Serrato MD Primary Care Provider [phone] Allergies Active Allergy Reactions Criticality Noted Date [...] cut at dc Coronary artery disease involving akutan heart 0 12/12/2023 Encounter for preprocedural cardiovascular exami [facility] emergency department 12/12/2023 ROSE (dyspnea on exertion) 11/19/2023 Stable [...] D2. Assessment & Plan (06/13/2020 1:43 PM WINDOW DRAPER): Check 25OHD, especially if considering therapy for osteoporosis. Assessment & Plan (02/08/2020 3:28 PM CDT): Consider bone DXA with next visit in person, if possible. Assessment & Plan (08/24/2019 10:11 AM CDT): Continue vitamin D supplementation, may be important if you encounter COVID-19. Stay home but get some sun when it comes out. Assessment & Plan (04/01/2019 11:31 AM WINDOW DRAPER): Levels normal 06/2018. Continue weekly ergocalciferol Clavicle enlargement 06/16/2018 Overview (06/16/2018): Will image to determine etiology. Assessment & Plan (06/16/2018 9:20 PM WINDOW DRAPER): X-ray shows osteoarthritis with osteophytes. Odd, but does not need follow-up. Primary open angle glaucoma (POAG) of both eyes, moderate stage 06/11/2018 Assessment & Plan (07/15/2023 8:54 AM WINDOW DRAPER): Doing well without concerns IOP at goal [...] concerns. Assessment & Plan (06/22/2022 7:41 AM WINDOW DRAPER): POW1 EXTRACTION CATARACT - PHACOEMULSIFICATION AND LENS [...] OS Assessment & Plan (06/15/2022 8:25 AM WINDOW DRAPER): POD1 EXTRACTION CATARACT - PHACOEMULSIFICATION AND LENS [...] concerns. Assessment & Plan (06/04/2022 2:51 PM WINDOW DRAPER): Progression of field - plan for goniotomy at time of surgery Continue drops at this time Assessment & Plan (05/19/2021 4:27 PM WINDOW DRAPER): POAG OU Mild HVF with progression of [...] OU Assessment & Plan (04/25/2020 8:08 AM WINDOW DRAPER): POAG, former Dr. Thomas patient Mild OU [...] weeks. Assessment & Plan (07/03/2019 9:12 AM WINDOW DRAPER): Patient returns S/P SLT OD -05/28/2019 -IOP Today by Ta 24/04 by tonopen. -A1C was around 7% at last visit on March 31. RTC 5 months for intraocular pressure (IOP) by applanation and HANS Drops: Combigan BID OU Latanoprost QHS OD Assessment & Plan (04/23/2019 10:48 AM WINDOW DRAPER): Patient returns for 6 months follow-up with [...] 06/11/2018 Assessment & Plan (07/15/2023 8:54 AM WINDOW DRAPER): Lenses doing well Assessment & Plan (06/22/2022 7:41 AM WINDOW DRAPER): The patient understands the risks, benefits, alternatives [...] eye. Assessment & Plan (06/04/2022 2:52 PM WINDOW DRAPER): NS OU The patient understands the risks, [...] eye. Assessment & Plan (05/19/2021 4:27 PM WINDOW DRAPER): Now becoming VS Plan for CEIOL\goniotomy in [...] Master Assessment & Plan (04/16/2020 8:17 AM WINDOW DRAPER): Nearing visual significance May need CEIOL/MIGS soon, but monitor for now Assessment & Plan (01/25/2020 8:46 AM CDT): Nearing visual significance May need CEIOL/MIGS soon, but monitor for now Assessment & Plan (12/05/2019 7:42 PM CDT): Pt ed. Defer cataract extraction (CE) until signs/sx indicate. Assessment & Plan (07/03/2019 9:13 AM WINDOW DRAPER): NVS. Continue to Monitor. I am scribing in the presence of Dr. Thomas on 07/03/2019, Sandy Aguirre, OSC. I have examined the patient and agree with the resident/fellow's findings and plan as documented. Niranjan Thomas MD Assessment & Plan (04/23/2019 10:45 AM WINDOW DRAPER): HALLEY Joseph scribing for and in the [...] calories. Assessment & Plan (06/13/2020 1:43 PM WINDOW DRAPER): Glucose control could not be fully assessed [...] doses. Assessment & Plan (04/01/2019 11:28 AM WINDOW DRAPER): Diabetes is worsening. Increase Lantus to 50 [...] months. Assessment & Plan (06/16/2018 9:16 PM WINDOW DRAPER): Diabetes is improving with treatment. Continue current [...] recheck. Assessment & Plan (06/13/2020 1:39 PM WINDOW DRAPER): Has been well controlled on low dose levothyroxine, will check TSH. Assessment & Plan (02/08/2020 3:27 PM CDT): TSH is perfect, no changes to levothyroxine dose. Assessment & Plan (04/01/2019 11:27 AM WINDOW DRAPER): Continue current replacement, 88 mcg. Will check TSH today Assessment & Plan (06/16/2018 9:17 PM WINDOW DRAPER): Thyroid functions are normal on current replacement, 88 mcg. No changes. Actinic keratosis 07/17/2012 Osteoarthritis of knee 12/16/2007 Assessment & Plan (06/16/2018 9:19 PM WINDOW DRAPER): Follow-up with early childhood specialist. Hyperlipidemia 07/21/2006 Assessment & Plan (11/15/2023 [...] months. Assessment & Plan (06/13/2020 1:44 PM WINDOW DRAPER): Last LDL was 90, but diabetes therapies have changed. Will recheck. Assessment & Plan (02/08/2020 3:26 PM CDT): LDL is at target, continue simvastatin. Assessment & Plan (04/01/2019 11:29 AM WINDOW DRAPER): Lipid abnormalities are improving with treatment. LDL is 47 in 06/2018. Continue simvastatin 40 mg daily Lipids will be reassessed in 6 months. Assessment & Plan (06/16/2018 9:17 PM WINDOW DRAPER): Lipid abnormalities are improving with treatment. LDL is 97 mg/dl. The patient was referred to the auto body service mechanic. and Pharmacotherapy as ordered. Lipids will be reassessed in 6 months. Obesity 07/21/2006 Assessment & Plan (01/25/2024 12:48 PM CDT): - BMI 40.32 on admission - provide bariatric equipment Assessment & Plan (04/01/2019 11:30 AM WINDOW DRAPER): Obesity is unchanged. She is less active after mcc. Discussed the patient's BMI. The BMI is [...] Restructure the plan after mcc in November. Hypertension 02/19/2006 Assessment & Plan [...] appointment. Assessment & Plan (06/16/2018 9:18 PM WINDOW DRAPER): Hypertension is worsening, BP has increased to [...] Type Department Care Team Description 04/21/2024 Telephone [facility] Cardiology [address] [place] [address] [place] [address] Fabi Collier NP 03/30/2024 10:30 AM WINDOW DRAPER Office Visit [facility] Endocrinology Metabolism and Lipid [address] [place] [address] [place] [address] Lia Mariano NP Type 2 diabetes mellitus with stage 3a chronic kidney disease, with long-term current use of insulin (HCC) (Primary Dx); Hypothyroidism, unspecified type; Anemia, unspecified type; Age-related osteoporosis without current pathological fracture 03/02/2024 3:15 PM CDT Lab [facility] [address] [place] [address] Mixed hyperlipidemia; 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; Heart failure, unspecified HF chronicity, unspecified heart failure type (HCC); Type 2 diabetes mellitus with hyperlipidemia (HCC); Iron deficiency anemia, unspecified iron deficiency anemia type 03/02/2024 11:40 AM CDT Office Visit [facility] Endocrinology Metabolism and Lipid [address] [place] [address] 13th [place] [address] [place] [address] Merna Bell MD Type 2 diabetes mellitus with hyperlipidemia (HCC) (Primary Dx); Iron deficiency anemia, unspecified iron deficiency anemia type; Heart failure, unspecified HF chronicity, unspecified heart failure type (HCC); 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; Mixed hyperlipidemia; Vitamin B12 deficiency 02/26/2024 12:00 PM CDT Office Visit [facility] Cardiothoracic Surgery [address] [place] [address] [address]th [address] Room [address] [address] Columba Leslie NP Coronary artery disease involving akutan heart, unspecified vessel or lesion type, unspecified whether angina present (Primary Dx) 02/26/2024 11:36 AM CDT - 02/26/2024 11:59 PM CDT Hospital Encounter [facility] Rad[facility] [address] [place] [id number] Coronary artery disease involving akutan heart, unspecified vessel or lesion type, unspecified whether angina present Discharge Disposition: Discharge to home or self care 02/24/2024 Orders Only [facility] Cardiology [address] [place] [address] 8th [place] [address] [place] [address] Fabi Collier NP CAD, multiple vessel (Primary Dx); Congestive heart failure, unspecified HF chronicity, unspecified heart failure type (HCC); ROSE (dyspnea on exertion); Abnormal stress echocardiogram; Hx of CABG 02/19/2024 Telephone [facility] Cardiology [address] [place] [address] 8th [place] [address] [place] [address] Fabi Collier NP 02/14/2024 11:30 AM CDT Office Visit [facility] Cardiology [address] [place] [address] 8th [place] [address] [place] [phone] Fabi Collier NP Dyspnea on exertion (Primary Dx); Congestive heart failure, unspecified HF chronicity, unspecified heart failure type (HCC); CAD, multiple vessel; AF (paroxysmal atrial fibrillation) (CMS/HCC) (HCC) 02/14/2024 Telephone [facility] Endocrinology Metabolism and Lipid [address] [place] [address] [place] [address] Martha Boyer RMA PO ([place]) 02/05/2024 Orders Only [facility] [phone] Unknown, Notinfile 02/03/2024 Orders Only [facility] [phone] Unknown, Notinfile 02/02/2024 Orders Only [facility] [phone] Unknown, Notinfile 02/01/2024 Orders Only [facility] [phone] Unknown, Notinfile 01/31/2024 Orders Only [facility] [phone] Unknown, Notinfile 01/29/2024 Orders Only [facility] [phone] Unknown, Notinfile from Last 3 Months Immunizations Name Administration Dates Next Due Influenza, Trivalent, High D ose, Split, Preservative Free, Intramuscular 03/06/2019 Influenza, Unspecified 02/16/2020,03/06/2019 Pneumococcal Conjugate PCV 13 08/12/2018 Pneumococcal Polysaccharide PPV23 04/29/2017 ZOSTER LIVE 04/29/2017 Surgical History Surgery Date Site/Laterality Comments SD DELIVERY ONLY Section - in 1972 and 1975 (Added by TW Conv) SD APPENDECTOMY unkown dates per pt SD TENDON SHEATH INCISION Hand Incision Tendon Sheath [...] Diabetic retinopathy (HCC) Nonproliferative diabetic re tinopathy ([facility]) 11/03/2009 Coronary artery disease Hypertension CHF (congestive heart failur e) ([facility]/HCC) ([facility]) Thyroid disease Coronary artery disease due to calcified coronary lesion 01/20/2024 Vitamin D deficiency 04/01/2019 Type 2 diabetes mellitus wit h hyperlipidemia ([facility]) 12/07/2016 Last A1C 5.9%, without compl ication Trigger finger of left thumb 12/09/2017 Pseudophakia of both eyes 06/11/2018 Primary open angle glaucoma (POAG) of both eyes, moderate stage 06/11/2018 Osteoarthritis of knee 12/16/2007 Knee pain 01/04/2015 Hypothyroidism 11/13/2014 Clavicle enlargement 06/16/2018 Will image to determine etiology. Age-related osteoporosis wit hout current pathological fracture 04/29/2023 Actinic keratosis 07/17/2012 Diabetic neuropathy ([facility]) 01/21/2024 Leucocytosis 01/22/2024 Family History Medical [...] on file Legal Sex Female 3:59 AM WINDOW DRAPER Gender Identity Female 05/13/2021 4:21 PM WINDOW DRAPER Sexual Orientation Not on file Obstetrics History Last Filed Vital Signs Vital Sign Reading Time Taken Comments Blood Pressure 121/74 03/30/2024 10:22 AM WINDOW DRAPER Pulse 78 03/30/2024 10:22 AM WINDOW DRAPER Temperature 36.7 ??C (98.1 ??F) 03/30/2024 10:[address] Respiratory Rate 18 01/28/2024 10:39 AM CDT Oxygen Saturation 100% 02/26/2024 12:10 PM CDT Inhaled Oxygen Concentration - - Weight 86.3 kg (190 lb 3.2 oz) 03/30/2024 10:22 AM WINDOW DRAPER Height 149.9 cm (4' 11 ) 03/30/2024 10:22 AM WINDOW DRAPER Body Mass Index 38.42 03/30/2024 10:22 AM WINDOW DRAPER Plan of Treatment Health Maintenance Due Date [...] 08/12/2018, 04/12 Medical Devices Implanted Type Area Demand Generation Manager Device Identifier Shelf Expiration Date Model / Serial / Lot [employer] Lens Iol Posterior Biconvex Optic Single Piece Envista 6.0x12.5 +18.0d Hydrophobic Acrylic [id number] - [id number] - [id number] Implanted:Qty: 1 on 06/14/2022 by Makayla Ramos MD at [facility] Lens Right: Lens [employer] [id number] 10/10/2024 [id number] / [id number] / [employer] Lens Iol Posterior Biconvex Optic Single Piece Envista 6.0x12.5 +18.0d Hydrophobic Acrylic [id number] - [id number] - [id number] Implanted:Qty: 1 on 08/16/2022 by Makayla Ramos MD at [facility] Lens Left: Eye [employer] [id number] 05/12/2025 [id number] / [id number] / [id number] [employer] Sternalock Hernan 2.4mm 16mm Self Drill Lock Sternum Cancellous 73-2416 - [id number] Implanted:Qty: 4 on 01/20/2024 by Jeff Alaniz MD at [facility] N/A: Sternum [employer] 73-2416 / / Trial [id number] Achv Atriclip Tony Exclusion System [id number] - [id number] Implanted:Qty: 1 on 01/20/2024 by Stan Treviño MD at [facility] N/A: Heart Atricure [id number] / / Description:clinical trial i tem [id number] ACHV ATRICLIP TONY EXCLUSION SYSTEM [id number] [employer] Suture Mouthcard Cor Knot Pre Loaded Fastener Device Micro Titanium 0 29571 - S0 - [id number] Implanted:Qty: 1 on 01/20/2024 by Stan Treviño MD at [facility] N/A: Heart [employer] [id number] 06/12/2026 63277 / 0 / [id number] [employer] Suture Mouthcard Cor Knot Pre Loaded Fastener Device Micro Titanium 0 52153 - S0 - [id number] Implanted:Qty: 1 on 01/20/2024 by Stan Treviño MD at [facility] N/A: Heart [employer] [id number] 09/09/2026 28756 / 0 / [id number] [employer] Suture Mouthcard Cor Knot Pre Loaded Fastener Device Micro Titanium 0 68923 - S0 - [id number] Implanted:Qty: 1 on 01/20/2024 by Stan Treviño MD at [facility] N/A: Heart [employer] [id number] 07/10/2026 51786 / 0 / [id number] [employer] Suture Mouthcard Cor Knot Pre Loaded Fastener Device Micro Titanium 0 94983 - S0 - [id number] Implanted:Qty: 1 on 01/20/2024 by Stan Treviño MD at [facility] N/A: Heart [employer] [id number] 10/10/2026 46177 / 0 / [id number] Atricure Device Left Atrial Appendage Malleable Shaft 180 Degree Rotation White Atriclip Flex V 40mm Flexv40 Achv40 - [id number] Implanted:Qty: 1 on 01/20/2024 by Stan Treviño MD at [facility] N/A: Heart [employer] 07/11/2026 [id number] / / [id number] Description:LEFT ATRIAL APPE NDAGE S/B clinical trial item [id number] ACHV ATRICLIP TONY EXCLUSION SYSTEM [id number] [employer] Sternalock 360 Sternal Closure 74-0004 - [id number] Implanted:Qty: 1 on 01/20/2024 by Jeff Alaniz MD at [facility] N/A: Sternum [employer] [id number] 11/04/2028 74-0004 / / [id number] [employer] Sternalock Hernan 2.4mm 14mm Self Drill Lock Sternum Cancellous 73-2414 - [id number] Implanted:Qty: 12 on 01/20/2024 by Jeff Alaniz MD at [facility] N/A: Sternum [employer] 73-2414 / / Procedures Procedure Name Priority Date/Time Associated Diagnosis Comments CBC WITH AUTO DIFFERENTIAL Routine 04/27/2024 9:24 AM WINDOW DRAPER Anemia, unspecified type EGFR Routine 03/02/2024 12:20 [...] diabetes mellitus with hyperlipidemia (HCC) POCT GLUCOSE 74623 Routine 03/02/2024 11:33 AM CDT Type 2 diabetes mellitus with hyperlipidemia (HCC) XR CHEST PA LATERAL 2 VIEWS Schedule Routine, Read Routine (OP Routine) 02/26/2024 11:42 AM CDT Coronary artery disease involving akutan heart, unspecified vessel or lesion type, unspecified [...] CBC with auto differential (04/27/2024 9:24 AM WINDOW DRAPER) WBC 7.8 3.8 - 10.8 Thousand/u [employer] [facility]Kya Campbell RBC, POC 4.16 3.80 - [...] Diagnostics-S t Adrian Blood 04/27/2024 9:24 AM WINDOW DRAPER 04/27/2024 9:25 AM WINDOW DRAPER us Lia Mariano [employer] CLERK LAB BLOOD ORDERABLES Phyllis alanis Result JOSE C Campbell [address] [place] [address] * (ABNORMAL) eGFR (03/02/2024 12:20 PM CDT) [...] LAB BLOOD ORDERABLES Final Re sult [facility] Department [place] [address] * Differential, auto (03/02/2024 12:20 PM CDT) Neutrophil abs 4.9 1.5 - 6.5 K/cumm Imm gran abs 0.0 0.0 - 0.1 K/cumm [facility] Lymphocyte abs 2.1 0.8 - 3.3 K/cumm [facility] Monocyte abs 0.6 0.2 - 0.8 K/cumm [facility] Eosinophil abs 0.1 0.0 - 0.5 K/cumm [facility] Basophil abs 0.0 0.0 - 0.1 K/cumm [facility] Neutrophil pct 62.9 % [facility] Comment: Interpretive Data Percent cell count reference ranges are not reported, since discordance with absolute values may lead to misinterpretation of CBC data. Current Interpretive Data was last revised on 2017. Imm gran pct 0.3 % [facility] Comment: Interpretive Data Percent cell count reference ranges are not reported, since discordance with absolute values may lead to misinterpretation of CBC data. Current Interpretive Data was last revised on 2017. Lymphocyte pct 27.0 % [facility] Comment: Interpretive Data Percent cell count reference ranges are not reported, since discordance with absolute values may lead to misinterpretation of CBC data. Current Interpretive Data was last revised on 2017. Monocyte pct 7.9 % [facility] Comment: Interpretive Data Percent cell count reference ranges are not reported, since discordance with absolute values may lead to misinterpretation of CBC data. Current Interpretive Data was last revised on 2017. Eosinophil pct 1.4 % [facility] Comment: Interpretive Data Percent cell count reference ranges are not reported, since discordance with absolute values may lead to misinterpretation of CBC data. Current Interpretive Data was last revised on 2017. Basophil pct 0.5 % [facility] Comment: Interpretive Data Percent cell count reference ranges are not reported, since discordance with absolute values may lead to misinterpretation of CBC data. Current Interpretive Data was last revised on 2017. Blood 03/02/2024 12:2 0 PM CDT 03/02/2024 12:49 PM CDT us Merna Bell MD LAB BLOOD ORDERABLES Final Re sult [facility] Department [place] [address] * (ABNORMAL) Pro B-type natriuretic peptide (03/02/2024 [...] ORDERABLES Final Re sult Performing Organization Address [facility]/ZIP Co de Phone Number [facility] Department [place] [address] * Thyroid Function Ward (03/02/2024 12:20 PM CDT) Pathologist [facility] Department TSH 1.21 0.30 - 4.20 mcIUnit/mL Blood 03/02/2024 12:2 0 PM CDT 03/02/2024 12:49 PM CDT Merna Bell MD LAB BLOOD ORDERABLES Final Re sult Performing Organization Address [facility] Co de Phone Number [facility] Department [place] [address] * (ABNORMAL) Iron profile w/ IBC (03/02/2024 12:20 PM CDT) [facility] Iron 31(L) 35 - 145 mcg/dL TIBC 237(L) 250 - 400 mcg/dL [facility] Transferrin saturation 13(L) 20 - 50 % [facility] Blood 03/02/2024 12:2 0 PM CDT 03/02/2024 12:49 PM CDT Merna Bell MD LAB BLOOD ORDERABLES Final Re sult Performing Organization Address [facility]/ZIP Co de Phone Number [facility] Department [place] [address] * (ABNORMAL) CBC with auto differential (03/02/2024 12:20 PM CDT) [facility] WBC 7.8 3.8 - 9.9 K/cumm Hgb 10.7(L) 11.9 - 15.5 g/dL [facility] Hct 33.4(L) 35.6 - 45.5 % [facility] Plt 261 150 - 400 K/cumm [facility] MPV 10.7 9.1 - 12.3 fL [facility] RBC 3.81(L) 3.90 - 5.20 M/cumm [facility] MCV 87.7 81.3 - 96.4 fL [facility] MCH 28.1 27.1 - 33.3 pg [facility] MCHC 32.0(L) 32.3 - 35.7 g/dL [facility] RDW CV 13.1 11.1 - 14.9 % [facility] RDW SD 41.5 35.7 - 48.1 fL [facility] NRBC abs 0.00 0.00 - 0.01 K/cumm [facility] Blood 03/02/2024 12:2 0 PM CDT 03/02/2024 12:49 PM CDT Merna Bell MD LAB BLOOD ORDERABLES Final Re sult Performing Organization Address [facility] Co de Phone Number [facility] Department [place] [address] * (ABNORMAL) Reticulocyte Count (03/02/2024 12:20 PM CDT) [facility] Retics, absolute 0.058 0.020 - 0.087 M/cumm Retics 1.5 0.4 - 2.9 % [facility] Reticulocyte Hgb 28.7(L) 30.5 - 38.0 pg [facility] Blood 03/02/2024 12:2 0 PM CDT 03/02/2024 12:49 PM CDT Merna Bell MD LAB BLOOD ORDERABLES Final Re sult Performing Organization Address City/[facility]/ZIP Co de Phone Number [facility] Department [place] [address] * Vitamin B12 (03/02/2024 12:20 PM CDT) [facility] Vitamin B12 281 230 - 1,250 pg/mL Blood 03/02/2024 12:2 0 PM CDT 03/02/2024 12:49 PM CDT Merna Bell MD LAB BLOOD ORDERABLES Final Re sult [facility] Department [place] [address] * (ABNORMAL) Renal function panel (03/02/2024 12:20 PM CDT) Pathologist [facility] Sodium 143 135 - 145 mmol/L Potassium, pl 3.3 3.3 - 4.9 mmol/L [facility] Chloride 104 97 - 110 mmol/L [facility] CO2 23 22 - 32 mmol/L [facility] Anion gap 16(H) 2 - 15 mmol/L [facility] BUN 21 6 - 25 mg/dL [facility] Creatinine 1.26(H) 0.60 - 1.10 mg/dL [facility] Glucose 204(H) 70 - 199 mg/dL [facility] Comment: Interpretive Data Fasting glucose >/= [...] Calcium 9.2 8.5 - 10.3 mg/dL [facility] Phosphorus, pl 4.3 2.3 - 4.5 mg/dL [facility] Albumin 3.8 3.5 - 5.0 g/dL [facility] Blood 03/02/2024 12:2 0 PM CDT 03/02/2024 12:49 PM CDT Merna Bell MD LAB BLOOD ORDERABLES Final Re sult [facility] Department [place] [address] * (ABNORMAL) Lipid panel (03/02/2024 12:20 PM [...] revised on 2017. HDL 45 >=40 mg/dL [facility] Comment: Interpretive Data Ages < or [...] on 2017. LDL, calculated 81 <=129 mg/dL [facility] Comment: Interpretive Data Ages < or [...] revised on 2024. Non-HDL Cholesterol 116 mg/dL [facility] Comment: Interpretive Data Ages < or [...] revised on 2017. Chol/HDL ratio 4 [facility] Blood 03/02/2024 12:2 0 PM CDT 03/02/2024 12:49 PM CDT Merna Bell MD LAB BLOOD ORDERABLES Final Re sult [facility] Department [place] [address] * POCT hemoglobin A1c (03/02/2024 11:35 AM [...] was last reviewed 2021. Testing performed by: [address] [address] Blood 02/05/2024 6:06 AM CDT 02/05/2024 9:48 AM CDT us Notinfile Unknown LAB BLOOD ORDERABLES Final Res ult [facility] Department [place] [address] * Differential, auto (02/05/2024 6:06 AM CDT) Neutrophil abs 3.6 1.5 - 6.5 K/cumm [facility] Comment:Testing performed by : [address] [address] Imm gran abs 0.0 0.0 - 0.1 K/cumm [facility] Comment:Testing performed by : [address] [address] Lymphocyte abs 1.6 0.8 - 3.3 K/cumm [facility] Comment:Testing performed by : [address] [id number] Monocyte abs 0.6 0.2 - 0.8 K/cumm JORGE Comment:Testing performed by : [address] [address] Eosinophil abs 0.1 0.0 - 0.5 K/cumm JORGE Comment:Testing performed by : [address] [address]11 Basophil abs 0.0 0.0 - 0.1 K/cumm JORGE Comment:Testing performed by : [address] [address]80 Neutrophil pct 59.7 % JORGE Comment: Interpretive Data Percent cell count reference ranges are not reported, since discordance with absolute values may lead to misinterpretation of CBC data. Current Interpretive Data was last revised on 2017. Testing performed by: [address] [address] Imm gran pct 0.7 % JORGE Comment: Interpretive Data Percent cell count reference ranges are not reported, since discordance with absolute values may lead to misinterpretation of CBC data. Current Interpretive Data was last revised on 2017. Testing performed by: [address] 61559 Lymphocyte pct 26.8 % JORGE Comment: Interpretive Data Percent cell count reference ranges are not reported, since discordance with absolute values may lead to misinterpretation of CBC data. Current Interpretive Data was last revised on 2017. Testing performed by: [address] 71891 Monocyte pct 10.1 % JORGE Comment: Interpretive Data Percent cell count reference ranges are not reported, since discordance with absolute values may lead to misinterpretation of CBC data. Current Interpretive Data was last revised on 2017. Testing performed by: [address] [address]169 Eosinophil pct 2.0 % JORGE Comment: Interpretive Data Percent cell count reference ranges are not reported, since discordance with absolute values may lead to misinterpretation of CBC data. Current Interpretive Data was last revised on 2017. Testing performed by: [address] 23152 Basophil pct 0.7 % JORGE Comment: Interpretive Data Percent cell count reference ranges are not reported, since discordance with absolute values may lead to misinterpretation of CBC data. Current Interpretive Data was last revised on 2017. Testing performed by: [address] [address] Blood 02/05/2024 6:06 AM CDT 02/05/2024 9:48 AM CDT us Notinfile Unknown LAB BLOOD ORDERABLES Final Res ult JORGE EDGE 2800 [facility] Department [place] [address] * (ABNORMAL) CBC with auto differential (02/05/2024 6:06 AM CDT) WBC 6.0 3.8 - 9.9 K/cumm JORGE EDGE Comment:Testing performed by : [address] 838[address] Hgb 8.1(L) 11.9 - 15.5 g/dL JORGE EDGE Comment:Testing performed by : [address] [address]883 Hct 26.6(L) 35.6 - 45.5 % JORGE EDGE Comment:Testing performed by : [address] 73192 Plt 343 150 - 400 K/cumm JORGE EDGE Comment:Testing performed by : [address] 83900 MPV 10.4 9.1 - 12.3 fL JORGE EDGE Comment:Testing performed by : [address] 70530 RBC 2.79(L) 3.90 - 5.20 M/cumm JORGE EDGE Comment:Testing performed by : [address] 18832 MCV 95.3 81.3 - 96.4 fL JORGE EDGE Comment:Testing performed by : [address] 15648 MCH 29.0 27.1 - 33.3 pg JORGE EDGE Comment:Testing performed by : [address] 18103 MCHC 30.5(L) 32.3 - 35.7 g/dL JORGE Comment:Testing performed by : [address], [address] RDW CV 14.6 11.1 - 14.9 % JORGE EDGE Comment:Testing performed by : [address] 16778 RDW SD 50.4(H) 35.7 - 48.1 fL JORGE EDGE Comment:Testing performed by : [address] 88386 NRBC abs 0.00 0.00 - 0.01 K/cumm JORGE EDGE Comment:Testing performed by : [address] [address] Blood 02/05/2024 6:06 AM CDT 02/05/2024 9:48 AM CDT us Notinfile Unknown LAB BLOOD ORDERABLES Final Res ult JORGE EDGE 4500 [facility] Department [place] [address] * (ABNORMAL) Basic metabolic panel (02/05/2024 6:06 AM CDT) Sodium 140 135 - 145 mmol/L JORGE Comment:Testing performed by : [address] [address] Potassium, pl 4.6 3.3 - 4.9 mmol/L JORGE Comment:Testing performed by : [address] 22160 Chloride 107 97 - 110 mmol/L JORGE Comment:Testing performed by : [address] [address]49[address] CO2 22 22 - 32 mmol/L JORGE Comment:Testing performed by : [address] 22392 Anion gap 11 2 - 15 mmol/L JORGE Comment:Testing performed by : [address] 31704 BUN 26(H) 6 - 25 mg/dL JORGE EDGE Comment:Testing performed by : [address] 98693 Creatinine 1.40(H) 0.60 - 1.10 mg/dL JORGE EDGE Comment:Testing performed by : [address] 10513 Glucose 107 70 - 199 mg/dL JORGE [...] was last revised 2022. Testing performed by: [address] [address]27 Calcium 9.1 8.5 - 10.3 mg/dL JORGE Comment:Testing performed by : [address] [address] Blood 02/05/2024 6:06 AM CDT 02/05/2024 9:48 AM CDT us Notinfile Unknown LAB BLOOD ORDERABLES Final Res ult JORGE 0816 [facility] Department [place] [address] * (ABNORMAL) eGFR (02/03/2024 6:01 AM CDT) [facility] eGFR 39(L) >=60 mL/min/1. 73 [...] was last reviewed 2021. Testing performed by: [address] [address] Blood 02/03/2024 6:01 AM CDT 02/03/2024 8:28 AM CDT us Notinfile Unknown LAB BLOOD ORDERABLES Final Res ult [facility] 7901 [facility] Department [place] [address] * Differential, auto (02/03/2024 6:01 AM CDT) Neutrophil abs 5.6 1.5 - 6.5 K/cumm JORGE Comment:Testing performed by : [address] [address] Imm gran abs 0.1 0.0 - 0.1 K/cumm JORGE Comment:Testing performed by : [address] 85563 Lymphocyte abs 2.8 0.8 - 3.3 K/cumm JORGE Comment:Testing performed by : [address] 21342 Monocyte abs 0.7 0.2 - 0.8 K/cumm JORGE Comment:Testing performed by : [address] 27157 Eosinophil abs 0.2 0.0 - 0.5 K/cumm [facility] Comment:Testing performed by : [address] 72601 Basophil abs 0.1 0.0 - 0.1 K/cumm JORGE Comment:Testing performed by : [address] [address]34 Neutrophil pct 60.0 % [facility] Comment: Interpretive Data Percent cell count reference ranges are not reported, since discordance with absolute values may lead to misinterpretation of CBC data. Current Interpretive Data was last revised on 2017. Testing performed by: [address] [address]43 Imm gran pct 0.9 % [facility] Comment: Interpretive Data Percent cell count reference ranges are not reported, since discordance with absolute values may lead to misinterpretation of CBC data. Current Interpretive Data was last revised on 2017. Testing performed by: [address] 18001 Lymphocyte pct 29.4 % [facility] Comment: Interpretive Data Percent cell count reference ranges are not reported, since discordance with absolute values may lead to misinterpretation of CBC data. Current Interpretive Data was last revised on 2017. Testing performed by: [address] 35582 Monocyte pct 7.2 % [facility] Comment: Interpretive Data Percent cell count reference ranges are not reported, since discordance with absolute values may lead to misinterpretation of CBC data. Current Interpretive Data was last revised on 2017. Testing performed by: [address] 63398 Eosinophil pct 1.9 % [facility] Comment: Interpretive Data Percent cell count reference ranges are not reported, since discordance with absolute values may lead to misinterpretation of CBC data. Current Interpretive Data was last revised on 2017. Testing performed by: [address] 23813 Basophil pct 0.6 % [facility] Comment: Interpretive Data Percent cell count reference ranges are not reported, since discordance with absolute values may lead to misinterpretation of CBC data. Current Interpretive Data was last revised on 2017. Testing performed by: [address] [address] Blood 02/03/2024 6:01 AM CDT 02/03/2024 8:28 AM CDT us Notinfile Unknown LAB BLOOD ORDERABLES Final Res ult JORGE 9170 [facility] Department [place] [address] * (ABNORMAL) CBC with auto differential (02/03/2024 6:01 AM CDT) WBC 9.3 3.8 - 9.9 K/cumm JORGE EDGE Comment:Testing performed by : [address] [address]86 Hgb 9.5(L) 11.9 - 15.5 g/dL JORGE EDGE Comment:Testing performed by : [address] [address]489 Hct 29.9(L) 35.6 - 45.5 % JORGE EDGE Comment:Testing performed by : [address] 97422 Plt 426(H) 150 - 400 K/cumm JORGE EDGE Comment:Testing performed by : [address] 24547 MPV 10.5 9.1 - 12.3 fL JORGE EDGE Comment:Testing performed by : [address] 45887 RBC 3.20(L) 3.90 - 5.20 M/cumm JORGE EDGE Comment:Testing performed by : [address] 40418 MCV 93.4 81.3 - 96.4 fL JORGE EDGE Comment:Testing performed by : [address] 03079 MCH 29.7 27.1 - 33.3 pg JORGE EDGE Comment:Testing performed by : [address] 88029 MCHC 31.8(L) 32.3 - 35.7 g/dL JORGE EDGE Comment:Testing performed by : [address] 20616 RDW CV 14.5 11.1 - 14.9 % JORGE EDGE Comment:Testing performed by : [address] 06461 RDW SD 49.1(H) 35.7 - 48.1 fL JORGE EDGE Comment:Testing performed by : [address] 27286 NRBC abs 0.00 0.00 - 0.01 K/cumm JORGE EDGE Comment:Testing performed by : [address] [address]6547 Blood 02/03/2024 6:01 AM CDT 02/03/2024 8:28 AM CDT us Notinfile Unknown LAB BLOOD ORDERABLES Final Res ult JORGE 4500 [facility] Department [place] [address] * (ABNORMAL) Basic metabolic panel (02/03/2024 6:01 AM CDT) Sodium 140 135 - 145 mmol/L JORGE EDGE Comment:Testing performed by : [address] [address] Potassium, pl 4.4 3.3 - 4.9 mmol/L JORGE EDGE Comment:Testing performed by : [address] 48645 Chloride 104 97 - 110 mmol/L JORGE EDGE Comment:Testing performed by : [address] 69449 CO2 22 22 - 32 mmol/L JORGE EDGE Comment:Testing performed by : [address] 23782 Anion gap 14 2 - 15 mmol/L JORGE EDGE Comment:Testing performed by : [address] 838[address] BUN 23 6 - 25 mg/dL JORGE EDGE Comment:Testing performed by : [address] [address] Creatinine 1.40(H) 0.60 - 1.10 mg/dL JORGE EDGE Comment:Testing performed by : [address] 88420 Glucose 111 70 - 199 mg/dL JORGE [...] was last revised 2022. Testing performed by: [address] [address] Calcium 9.3 8.5 - 10.3 mg/dL JORGE Comment:Testing performed by : [address] [address]68 Blood 02/03/2024 6:01 AM CDT 02/03/2024 8:28 AM CDT us Notinfile Unknown LAB BLOOD ORDERABLES Final Res ult Performing Organization Address City/State/[facility] Co de Phone Number JORGE 7182 [facility] Department [place] [address] * (ABNORMAL) eGFR (02/02/2024 4:30 AM CDT) Pathologist [facility] eGFR 43(L) >=60 mL/min/1. 73 m2 JORGE [...] was last reviewed 2021. Testing performed by: [address] [address] Blood 02/02/2024 4:30 AM CDT 02/02/2024 9:37 AM CDT us Notinfile Unknown LAB BLOOD ORDERABLES Final Res ult JORGE EDGE 1125 [facility] Department of Laboratories [place], [place] [id number] * (ABNORMAL) Basic metabolic panel (02/02/2024 4:30 AM CDT) Sodium 141 135 - 145 mmol/L JORGE EDGE Comment:Testing performed by : [address] [address] Potassium, pl 4.2 3.3 - 4.9 mmol/L JORGE EDGE Comment:Testing performed by : [address] 89436 Chloride 106 97 - 110 mmol/L JORGE EDGE Comment:Testing performed by : [address] 22609 CO2 23 22 - 32 mmol/L JORGE EDGE Comment:Testing performed by : [address] 41182 Anion gap 12 2 - 15 mmol/L JORGE EDGE Comment:Testing performed by : [address] [address]44 BUN 24 6 - 25 mg/dL JORGE EDGE Comment:Testing performed by : [address] [address] Creatinine 1.30(H) 0.60 - 1.10 mg/dL JORGE EDGE Comment:Testing performed by : [address] 31970 Glucose 77 70 - 199 mg/dL JORGE [...] was last revised 2022. Testing performed by: [address] [address]6097 Calcium 8.9 8.5 - 10.3 mg/dL JORGE EDGE Comment:Testing performed by : [address] [address]69 Blood 02/02/2024 4:30 AM CDT 02/02/2024 9:37 AM CDT us Notinfile Unknown LAB BLOOD ORDERABLES Final Res ult JOREG EDGE 8419 [facility] Department [place] [address] * (ABNORMAL) eGFR (02/01/2024 4:35 [...] was last reviewed 2021. Testing performed by: [facility], [address] [place] [address]., [address] Blood 02/01/2024 4:35 AM CDT 02/01/2024 8:14 AM CDT us Notinfile Unknown LAB BLOOD ORDERABLES Final Res ult JORGE EDGE 1551 [facility] Department [place] [address] * Magnesium (02/01/2024 4:35 AM CDT) Magnesium 1.9 1.4 - 2.5 mg/dL JORGE EDGE Comment:Testing performed by : [address] 16040 Blood 02/01/2024 4:35 AM CDT 02/01/2024 8:13 AM CDT us Notinfile Unknown LAB BLOOD ORDERABLES Final Res ult JORGE EDGE 0702 [facility] Department [place] [address] * (ABNORMAL) Basic metabolic panel (02/01/2024 4:35 AM CDT) Sodium 140 135 - 145 mmol/L JORGE Comment:Testing performed by : [address] [address] Potassium, pl 4.7 3.3 - 4.9 mmol/L JORGE Comment:Testing performed by : [address] 04784 Chloride 106 97 - 110 mmol/L JORGE Comment:Testing performed by : [address] 31142 CO2 22 22 - 32 mmol/L JORGE Comment:Testing performed by : [address] 39546 Anion gap 12 2 - 15 mmol/L JORGE Comment:Testing performed by : [address] 66577 BUN 27(H) 6 - 25 mg/dL JORGE Comment:Testing performed by : [address] [address]69 Creatinine 1.70(H) 0.60 - 1.10 mg/dL JORGE Comment:Testing performed by : [address] 21232 Glucose 132 70 - 199 mg/dL JORGE [...] was last revised 2022. Testing performed by: [facility], [address] [place] [address]., 82085 Calcium 8.8 8.5 - 10.3 mg/dL JORGE EDGE Comment:Testing performed by : [facility], [address] [place] [address]., [address] Blood 02/01/2024 4:35 AM CDT 02/01/2024 8:13 AM CDT us Notinfile Unknown LAB BLOOD ORDERABLES Final Res ult JORGE EDGE 3200 [facility] Department [place] [address] * (ABNORMAL) eGFR (01/31/2024 5:00 [...] was last reviewed 2021. Testing performed by: [address] [address] Blood 01/31/2024 5:00 AM CDT 01/31/2024 8:23 AM CDT us Notinfile Unknown LAB BLOOD ORDERABLES Final Res ult JORGE 7132 [facility] Department [place] [address] * Differential, auto (01/31/2024 5:00 AM CDT) Neutrophil abs 4.7 1.5 - 6.5 K/cumm JORGE Comment:Testing performed by : [address] 70581 Imm gran abs 0.1 0.0 - 0.1 K/cumm JORGE Comment:Testing performed by : [address] 06493 Lymphocyte abs 1.8 0.8 - 3.3 K/cumm JORGE Comment:Testing performed by : [address] 74588 Monocyte abs 0.7 0.2 - 0.8 K/cumm JORGE Comment:Testing performed by : [address] 05985 Eosinophil abs 0.1 0.0 - 0.5 K/cumm JORGE Comment:Testing performed by : [address] 88410 Basophil abs 0.1 0.0 - 0.1 K/cumm JORGE Comment:Testing performed by : [address] 99042 Neutrophil pct 61.7 % JORGE Comment: Interpretive Data Percent cell count reference ranges are not reported, since discordance with absolute values may lead to misinterpretation of CBC data. Current Interpretive Data was last revised on 2017. Testing performed by: [address] 19325 Imm gran pct 1.6 % [facility] Comment: Interpretive Data Percent cell count reference ranges are not reported, since discordance with absolute values may lead to misinterpretation of CBC data. Current Interpretive Data was last revised on 2017. Testing performed by: [address] 65933 Lymphocyte pct 24.4 % [facility] Comment: Interpretive Data Percent cell count reference ranges are not reported, since discordance with absolute values may lead to misinterpretation of CBC data. Current Interpretive Data was last revised on 2017. Testing performed by: [address] 57733 Monocyte pct 9.7 % [facility] Comment: Interpretive Data Percent cell count reference ranges are not reported, since discordance with absolute values may lead to misinterpretation of CBC data. Current Interpretive Data was last revised on 2017. Testing performed by: [address] [address]88 Eosinophil pct 1.9 % [facility] Comment: Interpretive Data Percent cell count reference ranges are not reported, since discordance with absolute values may lead to misinterpretation of CBC data. Current Interpretive Data was last revised on 2017. Testing performed by: [address] 54086 Basophil pct 0.7 % [facility] Comment: Interpretive Data Percent cell count reference ranges are not reported, since discordance with absolute values may lead to misinterpretation of CBC data. Current Interpretive Data was last revised on 2017. Testing performed by: [address] 63555 Blood 01/31/2024 5:00 AM CDT 01/31/2024 8:23 AM CDT us Notinfile Unknown LAB BLOOD ORDERABLES Final Res ult JORGE EDGE 2442 [facility] Department [place] [address] * (ABNORMAL) Pro B-type natriuretic peptide (01/31/2024 5:00 AM CDT) [facility] NT-proBNP 4,427(H) <=300 pg/mL JORGE [...] Last Revised Date: 2017. Testing performed by: [facility], [address] [place] [address]., [address] Blood 01/31/2024 5:00 AM CDT 01/31/2024 8:23 AM CDT us Notinfile Unknown LAB BLOOD ORDERABLES Final Res ult JORGE EDGE 4500 [facility] Department [place] [address] * (ABNORMAL) CBC with auto differential (01/31/2024 5:00 AM CDT) Pathologist [facility] WBC 7.6 3.8 - 9.9 K/cumm JORGE EDGE Comment:Testing performed by : [address] 26941 Hgb 8.2(L) 11.9 - 15.5 g/dL JORGE EDGE Comment:Testing performed by : [address] [address]257 Hct 26.1(L) 35.6 - 45.5 % JORGE Comment:Testing performed by : [address] 37924 Plt 352 150 - 400 K/cumm JORGE Comment:Testing performed by : [address] 91431 MPV 10.7 9.1 - 12.3 fL JORGE EDGE Comment:Testing performed by : [address] 75650 RBC 2.80(L) 3.90 - 5.20 M/cumm JORGE EDGE Comment:Testing performed by : [address] 39574 MCV 93.2 81.3 - 96.4 fL JORGE EDGE Comment:Testing performed by : [address] 91043 MCH 29.3 27.1 - 33.3 pg JORGE EDGE Comment:Testing performed by : [address] 49798 MCHC 31.4(L) 32.3 - 35.7 g/dL JORGE EDGE Comment:Testing performed by : [address] 92450 RDW CV 14.6 11.1 - 14.9 % JORGE EDGE Comment:Testing performed by : [address] 70000 RDW SD 48.3(H) 35.7 - 48.1 fL JORGE EDGE Comment:Testing performed by : [address] 87363 NRBC abs 0.00 0.00 - 0.01 K/cumm JORGE EDGE Comment:Testing performed by : [address] [address]86[address] Blood 01/31/2024 5:00 AM CDT 01/31/2024 8:23 AM CDT us Notinfile Unknown LAB BLOOD ORDERABLES Final Res ult JORGE [facility]0 [facility] Department [place] [address] * (ABNORMAL) Basic metabolic panel (01/31/2024 5:00 AM CDT) Sodium 142 135 - 145 mmol/L JORGE EDGE Comment:Testing performed by : [address] [address] Potassium, pl 4.5 3.3 - 4.9 mmol/L JORGE EDGE Comment:Testing performed by : [address] [address]851 Chloride 108 97 - 110 mmol/L JORGE EDGE Comment:Testing performed by : [address] 72372 CO2 21(L) 22 - 32 mmol/L JORGE EDGE Comment:Testing performed by : [address] 41980 Anion gap 13 2 - 15 mmol/L JORGE EDGE Comment:Testing performed by : [address] 73834 BUN 28(H) 6 - 25 mg/dL JORGE DEGE Comment:Testing performed by : [address] [place] [address] Creatinine 1.50(H) 0.60 - 1.10 mg/dL JORGE EDGE Comment:Testing performed by : [facility], [address] [place] [address]., 259[address] Glucose 133 70 - 199 mg/dL JORGE [...] was last revised 2022. Testing performed by: [facility], [address] [place] [address]., 280[address] Calcium 8.9 8.5 - 10.3 mg/dL JORGE Comment:Testing performed by : [facility], [address] [place] [address]., 52054 Blood 01/31/2024 5:00 AM CDT 01/31/2024 8:23 AM CDT us Notinfile Unknown LAB BLOOD ORDERABLES Final Res ult JORGE 4387 [facility] Department [place] [address] * (ABNORMAL) eGFR (01/29/2024 6:20 [...] was last reviewed 2021. Testing performed by: [address] [address] Blood 01/29/2024 6:20 AM CDT 01/29/2024 8:23 AM CDT us Notinfile Unknown LAB BLOOD ORDERABLES Final Res ult JORGE 8333 [facility] Department [place] [address] * Differential, auto (01/29/2024 6:20 AM CDT) Neutrophil abs 5.2 1.5 - 6.5 K/cumm JORGE EDGE Comment:Testing performed by : [address] 345[address] Imm gran abs 0.1 0.0 - 0.1 K/cumm JORGE EDGE Comment:Testing performed by : [address] 85578 Lymphocyte abs 1.9 0.8 - 3.3 K/cumm JORGE EDGE Comment:Testing performed by : [address] 31216 Monocyte abs 0.8 0.2 - 0.8 K/cumm JORGE EDGE Comment:Testing performed by : [address] 43089 Eosinophil abs 0.2 0.0 - 0.5 K/cumm JORGE Comment:Testing performed by : [address] 97159 Basophil abs 0.0 0.0 - 0.1 K/cumm JORGE Comment:Testing performed by : [address] 79362 Neutrophil pct 63.2 % [facility] Comment: Interpretive Data Percent cell count reference ranges are not reported, since discordance with absolute values may lead to misinterpretation of CBC data. Current Interpretive Data was last revised on 2017. Testing performed by: [address] 34414 Imm gran pct 1.2 % [facility] Comment: Interpretive Data Percent cell count reference ranges are not reported, since discordance with absolute values may lead to misinterpretation of CBC data. Current Interpretive Data was last revised on 2017. Testing performed by: [address] 32502 Lymphocyte pct 23.4 % [facility] Comment: Interpretive Data Percent cell count reference ranges are not reported, since discordance with absolute values may lead to misinterpretation of CBC data. Current Interpretive Data was last revised on 2017. Testing performed by: [address] 79068 Monocyte pct 9.4 % [facility] Comment: Interpretive Data Percent cell count reference ranges are not reported, since discordance with absolute values may lead to misinterpretation of CBC data. Current Interpretive Data was last revised on 2017. Testing performed by: [address] [address]37 Eosinophil pct 2.3 % [facility] Comment: Interpretive Data Percent cell count reference ranges are not reported, since discordance with absolute values may lead to misinterpretation of CBC data. Current Interpretive Data was last revised on 2017. Testing performed by: [address] 88837 Basophil pct 0.5 % JORGE Comment: Interpretive Data Percent cell count reference ranges are not reported, since discordance with absolute values may lead to misinterpretation of CBC data. Current Interpretive Data was last revised on 2017. Testing performed by: [address] [address] Blood 01/29/2024 6:20 AM CDT 01/29/2024 8:23 AM CDT us Notinfile Unknown LAB BLOOD ORDERABLES Final Res ult JORGE 4500 [facility] Department [place] [address] * (ABNORMAL) CBC with auto differential (01/29/2024 6:20 AM CDT) WBC 8.2 3.8 - 9.9 K/cumm JORGE EDGE Comment:Testing performed by : [address] [address]372 Hgb 8.5(L) 11.9 - 15.5 g/dL JORGE Comment:Testing performed by : [address] 34094 Hct 26.5(L) 35.6 - 45.5 % JORGE Comment:Testing performed by : [address] 84815 Plt 281 150 - 400 K/cumm JORGE Comment:Testing performed by : [address] 68083 MPV 10.6 9.1 - 12.3 fL JORGE Comment:Testing performed by : [address] 99782 RBC 2.86(L) 3.90 - 5.20 M/cumm JORGE EDGE Comment:Testing performed by : [address] 91696 MCV 92.7 81.3 - 96.4 fL JORGE EDGE Comment:Testing performed by : [address] 94909 MCH 29.7 27.1 - 33.3 pg JORGE EDGE Comment:Testing performed by : [address] 89022 MCHC 32.1(L) 32.3 - 35.7 g/dL JORGE EDGE Comment:Testing performed by : [address] 95949 RDW CV 14.1 11.1 - 14.9 % JORGE EDGE Comment:Testing performed by : [address] 06194 RDW SD 46.3 35.7 - 48.1 fL JORGE EDGE Comment:Testing performed by : [address] 62603 NRBC abs 0.00 0.00 - 0.01 K/cumm JORGE EDGE Comment:Testing performed by : [address] [address]286 Blood 01/29/2024 6:20 AM CDT 01/29/2024 8:23 AM CDT us Notinfile Unknown LAB BLOOD ORDERABLES Final Res ult JORGE [facility]3 [facility] Department [place] [address] * (ABNORMAL) CBC without differential (01/29/2024 6:20 AM CDT) WBC 8.2 3.8 - 9.9 K/cumm JORGE EDGE Comment:Testing performed by : [address] [address] Hgb 8.5(L) 11.9 - 15.5 g/dL JORGE EDGE Comment:Testing performed by : [address] [address] Hct 26.5(L) 35.6 - 45.5 % JORGE EDGE Comment:Testing performed by : [address] [address] Plt 281 150 - 400 K/cumm JORGE EDGE Comment:Testing performed by : [address] [address] MPV 10.6 9.1 - 12.3 fL JORGE EDGE Comment:Testing performed by : [address] [address] RBC 2.86(L) 3.90 - 5.20 M/cumm JORGE EDGE Comment:Testing performed by : [address] [address] MCV 92.7 81.3 - 96.4 fL J[facility]GE EDGE Comment:Testing performed by : [address] [address] MCH 29.7 27.1 - 33.3 pg JORGE EDGE Comment:Testing performed by : [address] [address] MCHC 32.1(L) 32.3 - 35.7 g/dL JORGE EDGE Comment:Testing performed by : [address] [address] RDW CV 14.1 11.1 - 14.9 % JORGE EDGE Comment:Testing performed by : [address], [address] RDW SD 46.3 35.7 - 48.1 fL JORGE EDGE Comment:Testing performed by : [address] [address] NRBC abs 0.00 0.00 - 0.01 K/cumm JORGE EDGE Comment:Testing performed by : [address] [address] Blood 01/29/2024 6:20 AM CDT 01/29/2024 8:23 AM CDT us Notinfile Unknown LAB BLOOD ORDERABLES Final Res ult JORGE EDGE [address]3 [facility] Department [place] [address] * Magnesium (01/29/2024 6:20 AM CDT) Pathologist [facility] Magnesium 2.0 1.4 - 2.5 mg/dL JORGE EDGE Comment:Testing performed by : [address] [place] [address] Blood 01/29/2024 6:20 AM CDT 01/29/2024 8:23 AM CDT us Notinfile Unknown LAB BLOOD ORDERABLES Final Res ult [facility] 5751 [facility] Department [place] [address] * (ABNORMAL) Comprehensive metabolic panel (01/29/2024 6:20 AM CDT) Sodium 140 135 - 145 mmol/L JORGE Comment:Testing performed by : [address] [address] Potassium, pl 4.5 3.3 - 4.9 mmol/L JORGE Comment:Testing performed by : [address] [address] Chloride 105 97 - 110 mmol/L JORGE Comment:Testing performed by : [address] [address] CO2 20(L) 22 - 32 mmol/L JORGE Comment:Testing performed by : [address] [address] Anion gap 15 2 - 15 mmol/L JORGE Comment:Testing performed by : [address] [address] BUN 26(H) 6 - 25 mg/dL JORGE Comment:Testing performed by : [address] [address] Creatinine 1.20(H) 0.60 - 1.10 mg/dL JORGE Comment:Testing performed by : [address] [address] Glucose 75 70 - 199 mg/dL JORGE [...] was last revised 2022. Testing performed by: [address] [address] Calcium 8.9 8.5 - 10.3 mg/dL JORGE Comment:Testing performed by : [address] [address] Bilirubin, total 0.4 0.1 - 1.2 mg/dL JORGE Comment:Testing performed by : [address] [address] Protein, pl 5.6(L) 6.5 - 8.5 g/dL JORGE Comment:Testing performed by : [address] [address] Albumin 3.0(L) 3.5 - 5.0 g/dL JORGE Comment:Testing performed by : [address] [address] Alk phos 99 40 - 130 Units/L JORGE Comment:Testing performed by : [address] [address] ALT 9 7 - 45 Units/L JORGE Comment:Testing performed by : [address] [address] AST 19 10 - 45 Units/L JORGE Comment:Testing performed by : [address] [address] Blood 01/29/2024 6:20 AM CDT 01/29/2024 8:23 AM CDT us Notinfile Unknown LAB BLOOD ORDERABLES Final Res ult JORGE EDGE 0803 [facility] Department [place] [address] * (ABNORMAL) Basic metabolic panel (01/29/2024 6:20 AM CDT) Sodium 140 135 - 145 mmol/L JORGE Comment:Testing performed by : [facility] [address] [place] [address]., [address] Potassium, pl 4.5 3.3 - 4.9 mmol/L JORGE Comment:Testing performed by : [address], [place]., [address] Chloride 105 97 - 110 mmol/L JORGE Comment:Testing performed by : [address], [place]., [address] CO2 20(L) 22 - 32 mmol/L JORGE Comment:Testing performed by : [address], [place]., [address] Anion gap 15 2 - 15 mmol/L JORGE Comment:Testing performed by : [address], [place]., [address] BUN 26(H) 6 - 25 mg/dL JORGE Comment:Testing performed by : [address], [place]., [address] Creatinine 1.20(H) 0.60 - 1.10 mg/dL JORGE Comment:Testing performed by : [address], [place]., [address] Glucose 75 70 - 199 mg/dL JORGE [...] was last revised 2022. Testing performed by: [address] [address] Calcium 8.9 8.5 - 10.3 mg/dL JORGE Comment:Testing performed by : [address], [place]., [address] Blood 01/29/2024 6:20 AM CDT 01/29/2024 8:23 AM CDT us Notinfile Unknown LAB BLOOD ORDERABLES Final Res ult JORGE 1763 [facility] Department [place] [address] * Albumin Creatinine Ratio, Urine (10/29/2023 9:30 AM CDT) Microalb, Ur 7.9 0.0 - 22.9 mg/L [facility] Random Urine Creatinine 109.6 mg/dL [facility] Microalb/Creat Ratio 7.2 0.0 - 29.9 mg/g [facility] Urine 10/29/2023 9:30 AM CDT 10/29/2023 11:19 AM CDT Lia Mariano FEDERAL DISTRICT CLERK LAB URINE ORDERABLES Phyllis l Result Performing Organization Address City/[facility]/ZIP Co de Phone Number [facility] * Dexa Axial Skeleton Bone Density 1 or 2 Site (12/03/2022 10:04 AM CDT) Anatomical Region Laterality Modality Body N/A Radiographic Luba ging Narrative 12/04/2022 1:59 PM CDT Patient Name: Isabelle Lutz Date of : 1950 Date of scan: 12/03/2022 Bone mineral density was performed on a Holo[employer]ustation.me Discovery Densitometer. ?? Based on machine cross-calibration [...] by the International Society of Clinical Densitometry. [id number] Merna Bell MD IMG DXA PROCEDURES Final Resu lt from Last 3 Months or Most Recently Relevant to Health Maintenance Insurance MEDICARE [facility] FEDERAL MEDICARE [facility] MEDICARE MEDICARE [facility] Advance Directives For more information, please contact: [phone] * Full Code (Latest Code Status on File) Date Activated Date Inactivated Comments 01/20/2024 5:39 PM 01/28/2024 5:37 PM * Full Code Date Activated Date Inactivated Comments 11/25/2023 10:11 AM 11/25/2023 6:07 PM * Full Code Date Activated Date Inactivated Comments 11/15/2023 4:07 PM 11/16/2023 7:24 PM Care Teams Electrocardiogram Technician Relationship Specialty Start Date End Date Elpidio Serrato MD PCP - General Internal Medicine 06/09/18
--- OUTSIDE RECORDS SUMMARY | 2024-04-29 21:04 | XMS_ITS | Encounter Summary ---
Author Organization [facility] Address [address] [place] [address] Phone Care Team Providers Care Weld Engineer Name Role Phone Elpidio Serrato MD Primary Care Provider [phone] Encounter Details Date Type Department Care Team (Latest Contact Info) Description 03/02/2024 11:40 AM CDT Office Visit [facility] Endocrinology Metabolism and Lipid [address] [facility] 13th [place] [address] [place] [address] Merna Bell MD [address] [facility] [address] [place], [place] [id number] Type 2 diabetes mellitus with hyperlipidemia (HCC) [...] on file Legal Sex Female 3:59 AM OCCUPATIONAL REHABILITATION AIDE Gender Identity Female 05/13/2021 4:21 PM OCCUPATIONAL REHABILITATION AIDE Sexual Orientation Not on file documented as [...] units plus sliding scale Labs today at [facility] laboratory, 3rd floor documented in this encounter [...] Interval Hx: Pt [facility] fracture 04/29/2023 Cataract CHF (congestive heart failure) ([facility]/HCC) ([facility]) Clavicle enlargement 06/16/2018 Will image to determine etiology. Coronary artery disease Coronary artery disease due to calcified coronary lesion 01/20/2024 Diabetes mellitus ([facility]) Diabetic neuropathy ([facility]) 01/21/2024 Diabetic retinopathy ([facility]) Glaucoma Hypertension Hypothyroidism 11/13/2014 Knee pain 01/04/2015 Leucocytosis 01/22/2024 Multiparity History Of ___ Previous Pregnancies - 7 pregnancies, 2 children - C-sections. (Added by TW Conv) Nonproliferative diabetic retinopathy ([facility]) 11/03/2009 Osteoarthritis of knee 12/16/2007 Personal history [...] CATARACT EXTRACTION Right 06/14/2022 CE/IOL + goniotomy SD APPENDECTOMY unkown dates per pt [place] DELIVERY ONLY Section - in 1972 and 1975 (Added by TW Conv) SD TENDON SHEATH INCISION Hand Incision Tendon [...] labs, imaging, and diagnostics independently reviewed in [facility] and commented on below. Allergies: [...] panel Pro B-type natriuretic peptide Thyroid Function [place] Lipid panel POCT hemoglobin A1c POCT glucose Merna Bell MD can runner [facility] in [facility] Division of Endocrinology, Metabolism, & Lipid Research [address] [place] [address] [address], [place] [address] documented in this encounter Plan of Treatment Not on file documented as of this encounter Procedures Procedure Name Priority Date/Time Associated Diagnosis Comments POCT HEMOGLOBIN A1C Routine 03/02/2024 1 1:35 AM CDT Type 2 diabetes mellitus with hyperlipidemia (HCC) POCT GLUCOSE [address] Routine 03/02/2024 11 :33 AM CDT Type [...] ORDERABLES Final Re sult Performing Organization Address City/[facility] Co de Phone Number [facility] [place] [address] * Thyroid Function [place] (03/02/2024 12:20 PM CDT) TSH 1.21 0.30 - 4.20 mcIUnit/mL Blood 03/02/2024 12:2 0 PM CDT 03/02/2024 12:49 PM CDT Merna Bell MD LAB BLOOD ORDERABLES Final Re sult Performing Organization Address [facility] de Phone Number JORGE [facility] [place] [address] * (ABNORMAL) Pro B-type natriuretic peptide (03/02/2024 [...] [facility] [place] [address] * (ABNORMAL) Renal function panel (03/02/2024 12:20 [...] ORDERABLES Final Re sult Performing Organization Address [facility] Co de Phone Number [facility] [place] [address] * (ABNORMAL) Reticulocyte Count (03/02/2024 12:20 PM CDT) [facility] Signature Retics, absolute 0.058 0.020 - 0.087 M/cumm Retics 1.5 0.4 - 2.9 % [facility] Reticulocyte Hgb 28.7(L) 30.5 - 38.0 pg [facility] Blood 03/02/2024 12:2 0 PM CDT 03/02/2024 12:49 PM CDT Merna Bell MD LAB BLOOD ORDERABLES Final Re sult Performing Organization Address City/[facility]/ZIP Co de Phone Number [facility] [place] [address] * Vitamin B12 (03/02/2024 12:20 PM CDT) [facility] Vitamin B12 281 230 - 1,250 pg/mL Blood 03/02/2024 12:2 0 PM CDT 03/02/2024 12:49 PM CDT Merna Bell MD LAB BLOOD ORDERABLES Final Re sult Performing Organization Address City/[facility]/ZIP Co de Phone Number [facility] [place] [address] * (ABNORMAL) Iron profile w/ IBC (03/02/2024 12:20 PM CDT) [facility] Iron 31(L) 35 - 145 mcg/dL TIBC 237(L) 250 - 400 mcg/dL [facility] Transferrin saturation 13(L) 20 - 50 % [facility] Blood 03/02/2024 12:2 0 PM CDT 03/02/2024 12:49 PM CDT Merna Bell MD LAB BLOOD ORDERABLES Final Re sult Performing Organization Address City/[facility] Co de Phone Number [facility] [place] [address] * (ABNORMAL) CBC with auto differential (03/02/2024 12:20 PM CDT) [facility] WBC 7.8 3.8 - 9.9 [...] [facility] [place] [address] * POCT hemoglobin A1c (03/02/2024 11:35 AM [...] deficiencies documented in this encounter Care Teams Weld Engineer Relationship Specialty Start Date End Date Elpidio Serrato MD PCP - General Internal Medicine 06/09/18 documented as of this encounter
--- OUTSIDE RECORDS SUMMARY | 2024-04-29 21:04 | XMS_ITS | Encounter Summary ---
Author Organization [facility] Address [address] [place] [address] Care Team Providers Care Laborer Salvage Name Role Phone Elpidio Serrato MD Primary Care Provider [phone] Encounter Details Date Type Department Care Team (Late st Contact Info) Description 03/02/2024 3:15 PM CDT Lab 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; [...] on file Legal Sex Female 3:59 AM PUBLIC HEALTH STAFF NURSE Gender Identity Female 05/13/2021 4:21 PM PUBLIC HEALTH STAFF NURSE Sexual Orientation Not on file documented [...] Re sult [facility] Department [place] [address] * Differential, auto (03/02/2024 12:20 PM CDT) Neutrophil abs 4.9 1.5 - 6.5 K/cumm Imm gran abs 0.0 0.0 - 0.1 K/cumm [facility] Lymphocyte abs 2.1 0.8 - 3.3 K/cumm [facility] Monocyte abs 0.6 0.2 - 0.8 K/cumm [facility] Eosinophil abs 0.1 0.0 - 0.5 K/cumm [facility] Basophil abs 0.0 0.0 - 0.1 K/cumm [facility] Neutrophil pct 62.9 % [facility] Comment: Interpretive Data Percent cell count reference ranges are not reported, since discordance with absolute values may lead to misinterpretation of CBC data. Current Interpretive Data was last revised on 2017. Imm gran pct 0.3 % [facility] Comment: Interpretive Data Percent cell count reference ranges are not reported, since discordance with absolute values may lead to misinterpretation of CBC data. Current Interpretive Data was last revised on 2017. Lymphocyte pct 27.0 % JORGE [facility] Comment: Interpretive Data Percent cell count reference ranges are not reported, since discordance with absolute values may lead to misinterpretation of CBC data. Current Interpretive Data was last revised on 2017. Monocyte pct 7.9 % [facility] Comment: Interpretive Data Percent cell count reference ranges are not reported, since discordance with absolute values may lead to misinterpretation of CBC data. Current Interpretive Data was last revised on 2017. Eosinophil pct 1.4 % [facility] Comment: Interpretive Data Percent cell count reference ranges are not reported, since discordance with absolute values may lead to misinterpretation of CBC data. Current Interpretive Data was last revised on 2017. Basophil pct 0.5 % [facility] Comment: Interpretive Data Percent cell count reference ranges are not reported, since discordance with absolute values may lead to misinterpretation of CBC data. Current Interpretive Data was last revised on 2017. Blood 03/02/2024 12:2 0 PM CDT 03/02/2024 12:49 PM CDT us Merna Bell MD LAB BLOOD ORDERABLES Final Re sult [facility] Department of Laboratories [place], [place] [id number] * (ABNORMAL) CBC with auto differential (03/02/2024 12:20 PM CDT) WBC 7.8 3.8 - 9.9 K/cumm Hgb 10.7(L) 11.9 - 15.5 g/dL [facility] Hct 33.4(L) 35.6 - 45.5 % [facility] Plt 261 150 - 400 K/cumm [facility] MPV 10.7 9.1 - 12.3 fL [facility] RBC 3.81(L) 3.90 - 5.20 M/cumm [facility] MCV 87.7 81.3 - 96.4 fL [facility] MCH 28.1 27.1 - 33.3 pg [facility] MCHC 32.0(L) 32.3 - 35.7 g/dL [facility] RDW CV 13.1 11.1 - 14.9 % [facility] RDW SD 41.5 35.7 - 48.1 fL [facility] NRBC abs 0.00 0.00 - 0.01 K/cumm [facility] Blood 03/02/2024 12:2 0 PM CDT 03/02/2024 12:49 PM CDT Merna Bell MD LAB BLOOD ORDERABLES Final Re sult Performing Organization Address City/[facility] Co de Phone Number [facility] Department [place] [address] * (ABNORMAL) Iron profile w/ IBC (03/02/2024 12:20 PM CDT) [facility] Iron 31(L) 35 - 145 mcg/dL TIBC 237(L) 250 - 400 mcg/dL [facility] Transferrin saturation 13(L) 20 - 50 % [facility] Blood 03/02/2024 12:2 0 PM CDT 03/02/2024 12:49 PM CDT Merna Bell MD LAB BLOOD ORDERABLES Final Re sult Performing Organization Address City/[facility]/ZIP Co de Phone Number [facility] [place] [address] * Vitamin B12 (03/02/2024 12:20 PM CDT) [facility] Vitamin B12 281 230 - 1,250 pg/mL Blood 03/02/2024 12:2 0 PM CDT 03/02/2024 12:49 PM CDT Merna Bell MD LAB BLOOD ORDERABLES Final Re sult Performing Organization Address [facility]/ZIP Co de Phone Number [facility] [place] [address] * (ABNORMAL) Reticulocyte Count (03/02/2024 12:20 PM CDT) Retics, absolute 0.058 0.020 - 0.087 M/cumm Retics 1.5 0.4 - 2.9 % [facility] Reticulocyte Hgb 28.7(L) 30.5 - 38.0 pg [facility] Blood 03/02/2024 12:2 0 PM CDT 03/02/2024 12:49 PM CDT Merna Bell MD LAB BLOOD ORDERABLES Final Re sult Performing Organization Address [facility]/[place] [address] * (ABNORMAL) Renal function panel (03/02/2024 12:20 PM CDT) Sodium 143 135 - 145 mmol/L Potassium, pl 3.3 3.3 - 4.9 mmol/L [facility] Chloride 104 97 - 110 mmol/L [facility] CO2 23 22 - 32 mmol/L [facility] Anion gap 16(H) 2 - 15 mmol/L [facility] BUN 21 6 - 25 mg/dL [facility] Creatinine 1.26(H) 0.60 - 1.10 mg/dL [facility] Glucose 204(H) 70 - 199 mg/dL [facility] [...] - 10.3 mg/dL [facility] Phosphorus, pl 4.3 2.3 - 4.5 mg/dL [facility] Albumin 3.8 3.5 - 5.0 g/dL [facility] Blood 03/02/2024 12:2 0 PM CDT 03/02/2024 12:49 PM CDT us Mrena Bell MD LAB BLOOD ORDERABLES Final Re sult [facility] Department [place] [address] * (ABNORMAL) Pro B-type natriuretic peptide (03/02/2024 [...] ORDERABLES Final Re sult Performing Organization Address [facility] de Phone Number [facility] [place] [address] * Thyroid Function [place] (03/02/2024 12:20 PM CDT) TSH 1.21 0.30 - 4.20 mcIUnit/mL Blood 03/02/2024 12:2 0 PM CDT 03/02/2024 12:49 PM CDT Merna Bell MD LAB BLOOD ORDERABLES Final Re sult Performing Organization Address [facility] de Phone Number JORGE [facility] Department [place] [address] * (ABNORMAL) Lipid panel (03/02/2024 12:20 PM [...] on 2017. HDL 45 >=40 mg/dL [facility] Comment: Interpretive [...] 2017. LDL, calculated 81 <=129 mg/dL [facility] Comment: Interpretive [...] on 2024. Non-HDL Cholesterol 116 mg/dL [facility] Comment: Interpretive [...] last revised on 2017. 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
--- OUTSIDE RECORDS SUMMARY | 2024-04-29 21:04 | XMS_ITS | Encounter Summary ---
Author Organization [facility] Healthcare Address [address] [place] [address] Care Team Providers Care Drapery Estimator Name Role Phone Elpidio Serrato MD Primary Care Provider [phone] Encounter Details Date Type Department Care Team (Latest Contact Info) Description 02/26/2024 11:36 AM CDT - 02/26/2024 11:59 PM CDT Hospital Encounter [facility] [address] [place] [id number] Coronary artery disease involving levelock heart, unspecified vessel or lesion type, unspecified [...] on file Legal Sex Female 3:59 AM NANNY CAREGIVER Gender Identity Female 05/13/2021 4:21 PM NANNY CAREGIVER Sexual Orientation Not on file documented as [...] 11:42 AM CDT Coronary artery disease involving levelock heart, unspecified vessel or lesion type, unspecified [...] Visit Diagnoses Diagnosis Coronary artery disease involving levelock heart, unspecified vessel or lesion type, unspecified whether angina present documented in this encounter Care Teams Drapery Estimator Relationship Specialty Start Date End Date Elpidio Serrato MD PCP - General Internal Medicine 06/09/18 documented as of this encounter
--- OUTSIDE RECORDS SUMMARY | 2024-04-29 21:04 | XMS_ITS | Referral Summary ---
Author Organization [facility] Address [address] [place] [address] Care Team Providers Care Manager Procurement Name Role Phone Elpidio Serrato MD Primary Care Provider [phone] Encounters Date Type Department Care Team Description 04/21/2024 Telephone [facility] Cardiology [address] [facility] 8th [place] [address] [place] [phone] Fabi Collier NP 03/30/2024 10:30 AM CORPORATE COUNSEL Office Visit [facility] Endocrinology Metabolism and Lipid [address] [facility] 13th [place] [address] [place] [phone] Lia Mariano NP Type 2 diabetes mellitus with stage 3a chronic kidney disease, with long-term current use of insulin (HCC) (Primary Dx); Hypothyroidism, unspecified type; Anemia, unspecified type; Age-related osteoporosis without current pathological fracture 03/02/2024 3:15 PM CDT Lab [facility] ([facility]) [address] [place] [id number] Mixed hyperlipidemia; 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; Heart failure, unspecified HF chronicity, unspecified heart failure type (HCC); Type 2 diabetes mellitus with hyperlipidemia (HCC); Iron deficiency anemia, unspecified iron deficiency anemia type 03/02/2024 11:40 AM CDT Office Visit [facility] Endocrinology Metabolism and Lipid [address] [facility] 13th [place] [address] [place] [phone] Merna Bell MD Type 2 diabetes mellitus with hyperlipidemia (HCC) (Primary Dx); Iron deficiency anemia, unspecified iron deficiency anemia type; Heart failure, unspecified HF chronicity, unspecified heart failure type (HCC); 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; Mixed hyperlipidemia; Vitamin B12 deficiency 02/26/2024 11:36 AM CDT - 02/26/2024 11:59 PM CDT Hospital Encounter [facility] [address] [place] [id number] Coronary artery disease involving chickahominy indian tribe heart, unspecified vessel or lesion type, unspecified whether angina present Discharge Disposition: Discharge to home or self care 02/26/2024 12:00 PM CDT Office Visit [facility] Cardiothoracic Surgery [address] [place] [address] 8th Floor [address] Room [address] [place] [phone] Columba Leslie NP Coronary artery disease involving chickahominy indian tribe heart, unspecified vessel or lesion type, unspecified whether angina present (Primary Dx) 02/24/2024 Orders Only [facility] Cardiology [address] [place] [address] 8th [place] [address] [place] [address] Fabi Collier NP CAD, multiple vessel (Primary Dx); Congestive heart failure, unspecified HF chronicity, unspecified heart failure type (HCC); ROSE (dyspnea on exertion); Abnormal stress echocardiogram; Hx of CABG 02/19/2024 Telephone [facility] Cardiology [address] [place] [address] 8th [place] [address] [place] [address] Fabi Collier NP 02/14/2024 Telephone [facility] Endocrinology Metabolism and Lipid [address] [place] [address] 13th [place] [address] [place] [address] Martha Boyer RMA PO (Solara) 02/14/2024 11:30 AM CDT Office Visit [facility] Cardiology [address] [place] [address] 8th [place] [address] [place] [address] Fabi Collier NP Dyspnea on exertion (Primary Dx); Congestive heart failure, unspecified HF chronicity, unspecified heart failure type ([facility]); CAD, multiple vessel; AF (paroxysmal atrial fibrillation) ([facility]/HCC) ([facility]) 02/05/2024 Orders Only [facility] [phone] Unknown, Notinfile 02/03/2024 Orders Only [facility] [phone] Unknown, Notinfile 02/02/2024 Orders Only [facility] [phone] Unknown, Notinfile 02/01/2024 Orders Only [facility] [phone] Unknown, Notinfile 01/31/2024 Orders Only [facility] [phone] Unknown, Notinfile 01/29/2024 Orders Only [facility] [phone] Unknown, Notinfile from Last 3 Months Allergies [...] current use of insulin, unspecified laterality ([facility]) Use 4X daily 300 each 3 023 [...] cut at dc Coronary artery disease involving chickahominy indian tribe heart 0 12/12/2023 Encounter for preprocedural cardiovascular exami [facility] 12/12/2023 ROSE (dyspnea on exertion) 11/19/2023 Stable [...] D2. Assessment & Plan (06/13/2020 1:43 PM CORPORATE COUNSEL): Check 25OHD, especially if considering therapy for osteoporosis. Assessment & Plan (02/08/2020 3:28 PM CDT): Consider bone DXA with next visit in person, if possible. Assessment & Plan (08/24/2019 10:11 AM CDT): Continue vitamin D supplementation, may be important if you encounter COVID-19. Stay home but get some sun when it comes out. Assessment & Plan (04/01/2019 11:31 AM CORPORATE COUNSEL): Levels normal 06/2018. Continue weekly ergocalciferol Clavicle enlargement 06/16/2018 Overview (06/16/2018): Will image to determine etiology. Assessment & Plan (06/16/2018 9:20 PM CORPORATE COUNSEL): X-ray shows osteoarthritis with osteophytes. Odd, but does not need follow-up. Primary open angle glaucoma (POAG) of both eyes, moderate stage 06/11/2018 Assessment & Plan (07/15/2023 8:54 AM CORPORATE COUNSEL): Doing well without concerns IOP at goal [...] concerns. Assessment & Plan (06/22/2022 7:41 AM CORPORATE COUNSEL): POW1 EXTRACTION CATARACT - PHACOEMULSIFICATION AND LENS [...] OS Assessment & Plan (06/15/2022 8:25 AM CORPORATE COUNSEL): POD1 EXTRACTION CATARACT - PHACOEMULSIFICATION AND LENS [...] concerns. Assessment & Plan (06/04/2022 2:51 PM CORPORATE COUNSEL): Progression of field - plan for goniotomy at time of surgery Continue drops at this time Assessment & Plan (05/19/2021 4:27 PM CORPORATE COUNSEL): POAG OU Mild HVF with progression of [...] OU Assessment & Plan (04/25/2020 8:08 AM CORPORATE COUNSEL): POAG, former Dr. Thomas patient Mild OU [...] weeks. Assessment & Plan (07/03/2019 9:12 AM CORPORATE COUNSEL): Patient returns S/P SLT OD -05/28/2019 -IOP Today by Ta 13 by tonopen. -A1C was around 7% at last visit on March 31. RTC 5 months for intraocular pressure (IOP) by applanation and HANS Drops: Combigan BID OU Latanoprost QHS OD Assessment & Plan (04/23/2019 10:48 AM CORPORATE COUNSEL): Patient returns for 6 months follow-up with [...] 06/11/2018 Assessment & Plan (07/15/2023 8:54 AM CORPORATE COUNSEL): Lenses doing well Assessment & Plan (06/22/2022 7:41 AM CORPORATE COUNSEL): The patient understands the risks, benefits, alternatives [...] eye. Assessment & Plan (06/04/2022 2:52 PM CORPORATE COUNSEL): NS OU The patient understands the risks, [...] eye. Assessment & Plan (05/19/2021 4:27 PM CORPORATE COUNSEL): Now becoming VS Plan for CEIOL\goniotomy in [...] Master Assessment & Plan (04/16/2020 8:17 AM CORPORATE COUNSEL): Nearing visual significance May need CEIOL/MIGS soon, but monitor for now Assessment & Plan (01/25/2020 8:46 AM CDT): Nearing visual significance May need CEIOL/MIGS soon, but monitor for now Assessment & Plan (12/05/2019 7:42 PM CDT): Pt ed. Defer cataract extraction (CE) until signs/sx indicate. Assessment & Plan (07/03/2019 9:13 AM CORPORATE COUNSEL): NVS. Continue to Monitor. I am scribing in the presence of Dr. Thomas on 07/03/2019, Sandy Aguirre OSC. I have examined the patient and agree with the resident/fellow's findings and plan as documented. Niranjan Thomas MD Assessment & Plan (04/23/2019 10:45 AM CORPORATE COUNSEL): HALLEY Joseph scribing for and in the [...] calories. Assessment & Plan (06/13/2020 1:43 PM CORPORATE COUNSEL): Glucose control could not be fully assessed [...] doses. Assessment & Plan (04/01/2019 11:28 AM CORPORATE COUNSEL): Diabetes is worsening. Increase Lantus to 50 [...] months. Assessment & Plan (06/16/2018 9:16 PM CORPORATE COUNSEL): Diabetes is improving with treatment. Continue current [...] recheck. Assessment & Plan (06/13/2020 1:39 PM CORPORATE COUNSEL): Has been well controlled on low dose levothyroxine, will check TSH. Assessment & Plan (02/08/2020 3:27 PM CDT): TSH is perfect, no changes to levothyroxine dose. Assessment & Plan (04/01/2019 11:27 AM CORPORATE COUNSEL): Continue current replacement, 88 mcg. Will check TSH today Assessment & Plan (06/16/2018 9:17 PM CORPORATE COUNSEL): Thyroid functions are normal on current replacement, 88 mcg. No changes. Actinic keratosis 07/17/2012 Osteoarthritis of knee 12/16/2007 Assessment & Plan (06/16/2018 9:19 PM CORPORATE COUNSEL): Follow-up with windows technical specialist. Hyperlipidemia 07/21/2006 Assessment & Plan (11/15/2023 [...] months. Assessment & Plan (06/13/2020 1:44 PM CORPORATE COUNSEL): Last LDL was 90, but diabetes therapies have changed. Will recheck. Assessment & Plan (02/08/2020 3:26 PM CDT): LDL is at target, continue simvastatin. Assessment & Plan (04/01/2019 11:29 AM CORPORATE COUNSEL): Lipid abnormalities are improving with treatment. LDL is 47 in 06/2018. Continue simvastatin 40 mg daily Lipids will be reassessed in 6 months. Assessment & Plan (06/16/2018 9:17 PM CORPORATE COUNSEL): Lipid abnormalities are improving with treatment. LDL is 97 mg/dl. The patient was referred to the marketing team lead. and Pharmacotherapy as ordered. Lipids will be reassessed in 6 months. Obesity 07/21/2006 Assessment & Plan (01/25/2024 12:48 PM CDT): - BMI 40.32 on admission - provide bariatric equipment Assessment & Plan (04/01/2019 11:30 AM CORPORATE COUNSEL): Obesity is unchanged. She is less active after detention. Discussed the patient's BMI. The BMI is [...] Pharmacotherapy as ordered. Restructure the plan after detention in November. Hypertension 02/19/2006 Assessment & Plan [...] appointment. Assessment & Plan (06/16/2018 9:18 PM CORPORATE COUNSEL): Hypertension is worsening, BP has increased to [...] file Legal Sex Female 3:59 AM CORPORATE COUNSEL Gender Identity Female 05/13/2021 4:21 PM CORPORATE COUNSEL Sexual Orientation Not on file Last Filed Vital Signs Vital Sign Reading Time Taken Comments Blood Pressure 121/74 03/30/2024 10:22 AM CORPORATE COUNSEL Pulse 78 03/30/2024 10:22 AM CORPORATE COUNSEL Temperature 36.7 ??C (98.1 ??F) 03/30/2024 10:[address] Respiratory Rate 18 01/28/2024 10:39 AM CDT Oxygen Saturation 100% 02/26/2024 12:10 PM CDT Inhaled Oxygen Concentration - - Weight 86.3 kg (190 lb 3.2 oz) 03/30/2024 10:22 AM CORPORATE COUNSEL Height 149.9 cm (4' 11 ) 03/30/2024 10:22 AM CORPORATE COUNSEL Body Mass Index 38.42 03/30/2024 10:22 AM CORPORATE COUNSEL Plan of Treatment Not on file Medical Devices Implanted Type Area Cosmetics Presser Device Identifier Shelf Expiration Date Model / Serial / Lot [employer] Lens Iol Posterior Biconvex Optic Single Piece Envista 6.0x12.5 +18.0d Hydrophobic Acrylic [id number] - [id number] - [id number] Implanted:Qty: 1 on 06/14/2022 by Makayla Ramos MD at [facility] Lens Right: Lens [employer] [id number] 10/10/2024 [id number] / [id number] / [employer] Lens Iol Posterior Biconvex Optic Single Piece Envista 6.0x12.5 +18.0d Hydrophobic Acrylic [id number] - [id number] - [id number] Implanted:Qty: 1 on 08/16/2022 by Makayla Ramos MD at [facility] Lens Left: Eye [employer] [id number] 05/12/2025 [id number] / [id number] / [id number] [employer] Sternalock Hernan 2.4mm 16mm Self Drill Lock Sternum Cancellous 73-2846 - [id number] Implanted:Qty: 4 on 01/20/2024 by Jeff Alaniz MD at [facility] N/A: Sternum [employer] 73-9576 / / Trial [id number] Achv Atriclip Tony Exclusion System [id number] - [id number] Implanted:Qty: 1 on 01/20/2024 by Stan Treviño MD at [facility] N/A: Heart Atricure [id number] / / Description:clinical trial i tem [id number] ACHV ATRICLIP TONY EXCLUSION SYSTEM [id number] [employer] Suture [place] Cor Knot Pre Loaded Fastener Device Micro Titanium 0 89553 - S0 - [id number] Implanted:Qty: 1 on 01/20/2024 by Stan Treviño MD at [facility] N/A: Heart [employer] [id number] 06/12/2026 [id number] / 0 / [id number] [employer] Suture [place] Cor Knot Pre Loaded Fastener Device Micro Titanium 0 76982 - S0 - [id number] Implanted:Qty: 1 on 01/20/2024 by Stan Treviño MD at [facility] N/A: Heart [employer] [id number] 09/09/2026 49004 / 0 / [id number] [employer] Suture [place] Cor Knot Pre Loaded Fastener Device Micro Titanium 0 73497 - S0 - [id number] Implanted:Qty: 1 on 01/20/2024 by Stan Treviño MD at [facility] N/A: Heart [employer] [id number] 07/10/2026 40233 / 0 / [id number] [employer] Suture [place] Cor Knot Pre Loaded Fastener Device Micro Titanium 0 47909 - S0 - [id number] Implanted:Qty: 1 on 01/20/2024 by Stan Treviño MD at [facility] N/A: Heart [employer] [id number] 10/10/2026 [id number] / 0 / [id number] Atricure Device Left Atrial Appendage Malleable Shaft 180 Degree Rotation White Atriclip Flex V 40mm Flexv40 Achv40 - [id number] Implanted:Qty: 1 on 01/20/2024 by Stan Treviño MD at [facility] N/A: Heart Atricure 07/11/2026 [id number] / / [id number] Description:LEFT ATRIAL APPE NDAGE S/B clinical trial item [id number] ACHV ATRICLIP TONY EXCLUSION SYSTEM [id number] [employer] Sternalock 360 Sternal Closure 74-0004 - [id number] Implanted:Qty: 1 on 01/20/2024 by Jeff Alaniz MD at [facility] N/A: Sternum [employer] [id number] 11/04/2028 74-0004 / / [id number] [employer] Sternalock Hernan 2.4mm 14mm Self Drill Lock Sternum Cancellous 73-2414 - [id number] Implanted:Qty: 12 on 01/20/2024 by Jeff Alaniz MD at [facility] N/A: Sternum [employer] [id number] / / Procedures Procedure Name Priority Date/Time Associated Diagnosis Comments CBC WITH AUTO DIFFERENTIAL Routine 04/27/2024 9:24 AM CORPORATE COUNSEL Anemia, unspecified type EGFR Routine 03/02/2024 12:20 [...] diabetes mellitus with hyperlipidemia (HCC) POCT GLUCOSE 31694 Routine 03/02/2024 11:33 AM CDT Type 2 diabetes mellitus with hyperlipidemia (HCC) XR CHEST PA LATERAL 2 VIEWS Schedule Routine, Read Routine (OP Routine) 02/26/2024 11:42 AM CDT Coronary artery disease involving chickahominy indian tribe heart, unspecified vessel or lesion type, unspecified [...] CBC with auto differential (04/27/2024 9:24 AM CORPORATE COUNSEL) Pathologist [facility] WBC 7.8 3.8 - 10.8 Thousand/u L [...] [facility] Blood 04/27/2024 9:24 AM CORPORATE COUNSEL 04/27/2024 9:25 AM CORPORATE COUNSEL Lia Mariano ACCOUNTANT CLERK LAB BLOOD ORDERABLES Phyllis l Result [address] [address] [place] [address] * (ABNORMAL) eGFR (03/02/2024 12:20 PM CDT) [...] LAB BLOOD ORDERABLES Final Re sult [facility] Department [place] [address] * Differential, auto (03/02/2024 12:20 PM CDT) Neutrophil abs 4.9 1.5 - 6.5 K/cumm Imm gran abs 0.0 0.0 - 0.1 K/cumm [facility] Lymphocyte abs 2.1 0.8 - 3.3 K/cumm [facility] Monocyte abs 0.6 0.2 - 0.8 K/cumm [facility] Eosinophil abs 0.1 0.0 - 0.5 K/cumm [facility] Basophil abs 0.0 0.0 - 0.1 K/cumm [facility] Neutrophil pct 62.9 % [facility] Comment: Interpretive Data Percent cell count reference ranges are not reported, since discordance with absolute values may lead to misinterpretation of CBC data. Current Interpretive Data was last revised on 2017. Imm gran pct 0.3 % [facility] Comment: Interpretive Data Percent cell count reference ranges are not reported, since discordance with absolute values may lead to misinterpretation of CBC data. Current Interpretive Data was last revised on 2017. Lymphocyte pct 27.0 % [facility] Comment: Interpretive Data Percent cell count reference ranges are not reported, since discordance with absolute values may lead to misinterpretation of CBC data. Current Interpretive Data was last revised on 2017. Monocyte pct 7.9 % [facility] Comment: Interpretive Data Percent cell count reference ranges are not reported, since discordance with absolute values may lead to misinterpretation of CBC data. Current Interpretive Data was last revised on 2017. Eosinophil pct 1.4 % [facility] Comment: Interpretive Data Percent cell count reference ranges are not reported, since discordance with absolute values may lead to misinterpretation of CBC data. Current Interpretive Data was last revised on 2017. Basophil pct 0.5 % [facility] Comment: Interpretive Data Percent cell count reference ranges are not reported, since discordance with absolute values may lead to misinterpretation of CBC data. Current Interpretive Data was last revised on 2017. Blood 03/02/2024 12:2 0 PM CDT 03/02/2024 12:49 PM CDT us Merna Bell MD LAB BLOOD ORDERABLES Final Re sult [facility] [place] [address] * (ABNORMAL) Pro B-type natriuretic peptide (03/02/2024 [...] ORDERABLES Final Re sult Performing Organization Address [facility] Co de Phone Number [facility] Department [email or web address] [address] * Thyroid Function Carver (03/02/2024 12:20 PM CDT) TSH 1.21 0.30 - 4.20 mcIUnit/mL Blood 03/02/2024 12:2 0 PM CDT 03/02/2024 12:49 PM CDT Merna Bell MD LAB BLOOD ORDERABLES Final Re sult Performing Organization Address [facility] Co de Phone Number [facility] [place] [address] * (ABNORMAL) Iron profile w/ IBC (03/02/2024 12:20 PM CDT) Iron 31(L) 35 - 145 mcg/dL TIBC 237(L) 250 - 400 mcg/dL [facility] Transferrin saturation 13(L) 20 - 50 % [facility] Blood 03/02/2024 12:2 0 PM CDT 03/02/2024 12:49 PM CDT Merna Bell MD LAB BLOOD ORDERABLES Final Re sult Performing Organization Address City/[facility]/ZIP Co de Phone Number [facility] [email or web address] [address] * (ABNORMAL) CBC with auto differential (03/02/2024 12:20 PM CDT) [facility] WBC 7.8 3.8 - 9.9 K/cumm Hgb 10.7(L) 11.9 - 15.5 g/dL [facility] Hct 33.4(L) 35.6 - 45.5 % [facility] Plt 261 150 - 400 K/cumm [facility] MPV 10.7 9.1 - 12.3 fL [facility] RBC 3.81(L) 3.90 - 5.20 M/cumm [facility] MCV 87.7 81.3 - 96.4 fL [facility] MCH 28.1 27.1 - 33.3 pg [facility] MCHC 32.0(L) 32.3 - 35.7 g/dL [facility] RDW CV 13.1 11.1 - 14.9 % [facility] RDW SD 41.5 35.7 - 48.1 fL [facility] NRBC abs 0.00 0.00 - 0.01 K/cumm [facility] Blood 03/02/2024 12:2 0 PM CDT 03/02/2024 12:49 PM CDT Merna Bell MD LAB BLOOD ORDERABLES Final Re sult [facility] [place] [address] * (ABNORMAL) Reticulocyte Count (03/02/2024 12:20 PM CDT) [facility] Retics, absolute 0.058 0.020 - 0.087 M/cumm Retics 1.5 0.4 - 2.9 % [facility] Reticulocyte Hgb 28.7(L) 30.5 - 38.0 pg [facility] Blood 03/02/2024 12:2 0 PM CDT 03/02/2024 12:49 PM CDT Merna Bell MD LAB BLOOD ORDERABLES Final Re sult Performing Organization Address [facility] Co de Phone Number [facility] Department [place] [address] * Vitamin B12 (03/02/2024 12:20 PM CDT) [facility] Vitamin B12 281 230 - 1,250 pg/mL Blood 03/02/2024 12:2 0 PM CDT 03/02/2024 12:49 PM CDT Merna Bell MD LAB BLOOD ORDERABLES Final Re sult Performing Organization Address [facility] de Phone Number [facility] [place] [address] * (ABNORMAL) Renal function panel (03/02/2024 12:20 PM CDT) [facility] Sodium 143 135 - 145 mmol/L Potassium, pl 3.3 3.3 - 4.9 mmol/L [facility] Chloride 104 97 - 110 mmol/L [facility] CO2 23 22 - 32 mmol/L [facility] Anion gap 16(H) 2 - 15 mmol/L [facility] BUN 21 6 - 25 mg/dL [facility] Creatinine 1.26(H) 0.60 - 1.10 mg/dL [facility] Glucose 204(H) 70 - 199 mg/dL [facility] Comment: Interpretive Data Fasting glucose >/= [...] 2022. Calcium 9.2 8.5 - 10.3 mg/dL [facility] Phosphorus, pl 4.3 2.3 - 4.5 mg/dL [facility] Albumin 3.8 3.5 - 5.0 g/dL [facility] Blood 03/02/2024 12:2 0 PM CDT 03/02/2024 12:49 PM CDT us Merna Bell MD LAB BLOOD ORDERABLES Final Re sult [facility] Department [place] [address] * (ABNORMAL) Lipid panel (03/02/2024 12:20 PM [...] revised on 2017. Triglycerides 209(H) <=149 mg/dL [facility] Comment: Interpretive Data Ages < or [...] revised on 2017. HDL 45 >=40 mg/dL [facility] Comment: Interpretive Data Ages < or [...] 2017. LDL, calculated 81 <=129 mg/dL [facility] Comment: Interpretive Data Ages < or [...] ORDERABLES Final Re sult [facility] [place] [address] * POCT hemoglobin A1c (03/02/2024 11:35 AM [...] (ABNORMAL) eGFR (02/05/2024 6:06 AM CDT) Pathologist [facility] eGFR 39(L) [...] was last reviewed 2021. Testing performed by: [address] [address] Blood 02/05/2024 6:06 AM CDT 02/05/2024 9:48 AM CDT us Notinfile Unknown LAB BLOOD ORDERABLES Final Res ult [facility] [address] [facility] Department [place] [address] * Differential, auto (02/05/2024 6:06 AM CDT) Neutrophil abs 3.6 1.5 - 6.5 K/cumm [facility] Comment:Testing performed by : [address] [address] Imm gran abs 0.0 0.0 - 0.1 K/cumm [facility] Comment:Testing performed by : [address] [address] Lymphocyte abs 1.6 0.8 - 3.3 K/cumm [facility] Comment:Testing performed by : [address], [place]., [address] Monocyte abs 0.6 0.2 - 0.8 K/cumm [facility] Comment:Testing performed by : [address], [place]., [address] Eosinophil abs 0.1 0.0 - 0.5 K/cumm [facility] Comment:Testing performed by : [address], [place]., [address] Basophil abs 0.0 0.0 - 0.1 K/cumm [facility] Comment:Testing performed by : [address] [address] Neutrophil pct 59.7 % [facility] Comment: Interpretive Data Percent cell count reference ranges are not reported, since discordance with absolute values may lead to misinterpretation of CBC data. Current Interpretive Data was last revised on 2017. Testing performed by: [address] [address] Imm gran pct 0.7 % [facility] Comment: Interpretive Data Percent cell count reference ranges are not reported, since discordance with absolute values may lead to misinterpretation of CBC data. Current Interpretive Data was last revised on 2017. Testing performed by: [address] [address] Lymphocyte pct 26.8 % [facility] Comment: Interpretive Data Percent cell count reference ranges are not reported, since discordance with absolute values may lead to misinterpretation of CBC data. Current Interpretive Data was last revised on 2017. Testing performed by: [address] [address] Monocyte pct 10.1 % [facility] Comment: Interpretive Data Percent cell count reference ranges are not reported, since discordance with absolute values may lead to misinterpretation of CBC data. Current Interpretive Data was last revised on 2017. Testing performed by: [address] [address] Eosinophil pct 2.0 % JORGE EDGE Comment: Interpretive Data Percent cell count reference ranges are not reported, since discordance with absolute values may lead to misinterpretation of CBC data. Current Interpretive Data was last revised on 2017. Testing performed by: [address] [address] Basophil pct 0.7 % JORGE EDGE Comment: Interpretive Data Percent cell count reference ranges are not reported, since discordance with absolute values may lead to misinterpretation of CBC data. Current Interpretive Data was last revised on 2017. Testing performed by: [address] [address] Blood 02/05/2024 6:06 AM CDT 02/05/2024 9:48 AM CDT us Notinfile Unknown LAB BLOOD ORDERABLES Final Res ult [facility] Department [place] [address] * (ABNORMAL) CBC with auto differential (02/05/2024 6:06 AM CDT) WBC 6.0 3.8 - 9.9 K/cumm JORGE EDEG Comment:Testing performed by : [address] [address] Hgb 8.1(L) 11.9 - 15.5 g/dL JORGE EDGE Comment:Testing performed by : [address] [address] Hct 26.6(L) 35.6 - 45.5 % JORGE EDGE Comment:Testing performed by : [address] [address] Plt 343 150 - 400 K/cumm JORGE EDGE Comment:Testing performed by : [address] [address] MPV 10.4 9.1 - 12.3 fL JORGE EDGE Comment:Testing performed by : [address] [address] RBC 2.79(L) 3.90 - 5.20 M/cumm JORGE EDGE Comment:Testing performed by : [address] [address] MCV 95.3 81.3 - 96.4 fL JORGE EDGE Comment:Testing performed by : [address] [address] MCH 29.0 27.1 - 33.3 pg JORGE EDGE Comment:Testing performed by : [address] [address] MCHC 30.5(L) 32.3 - 35.7 g/dL JORGE EDGE Comment:Testing performed by : [address], [address] RDW CV 14.6 11.1 - 14.9 % JORGE EDGE Comment:Testing performed by : [address] [address] RDW SD 50.4(H) 35.7 - 48.1 fL JORGE EDGE Comment:Testing performed by : [address] [address] NRBC abs 0.00 0.00 - 0.01 K/cumm JORGE Comment:Testing performed by : [address], [address] Blood 02/05/2024 6:06 AM CDT 02/05/2024 9:48 AM CDT us Notinfile Unknown LAB BLOOD ORDERABLES Final Res ult JORGE 5585 [facility] Department [place] [address] * (ABNORMAL) Basic metabolic panel (02/05/2024 6:06 AM CDT) Sodium 140 135 - 145 mmol/L JORGE EDGE Comment:Testing performed by : [address] [address] Potassium, pl 4.6 3.3 - 4.9 mmol/L JORGE EDGE Comment:Testing performed by : [address] [address] Chloride 107 97 - 110 mmol/L JORGE Comment:Testing performed by : [address] [address] CO2 22 22 - 32 mmol/L JORGE Comment:Testing performed by : [address] [address] Anion gap 11 2 - 15 mmol/L JORGE Comment:Testing performed by : [address] [address] BUN 26(H) 6 - 25 mg/dL JORGE Comment:Testing performed by : [address] [address] Creatinine 1.40(H) 0.60 - 1.10 mg/dL JORGE Comment:Testing performed by : [address] [address] Glucose 107 70 - 199 mg/dL JORGE [...] was last revised 2022. Testing performed by: [address] [address] Calcium 9.1 8.5 - 10.3 mg/dL JORGE Comment:Testing performed by : [address] [address] Blood 02/05/2024 6:06 AM CDT 02/05/2024 9:48 AM CDT us Notinfile Unknown LAB BLOOD ORDERABLES Final Res ult JORGE 7028 [facility] Department of Laboratories [place], [place] [id number] * (ABNORMAL) eGFR (02/03/2024 6:01 AM CDT) [...] reviewed 2021. Testing performed by: [facility], [address] [place] [address]., [address] Blood 02/03/2024 6:01 AM CDT 02/03/2024 8:28 AM CDT us Notinfile Unknown LAB BLOOD ORDERABLES Final Res ult JORGE EDGE 5854 [facility] Department [place] [address] * Differential, auto (02/03/2024 6:01 AM CDT) Pathologist [facility] Neutrophil abs 5.6 1.5 - 6.5 K/cumm JORGE Comment:Testing performed by : [facility], [address] [place] [address], [place]., [address] Imm gran abs 0.1 0.0 - 0.1 K/cumm [facility] Comment:Testing performed by : [facility], [address] [place] [address], [place]., [address] Lymphocyte abs 2.8 0.8 - 3.3 K/cumm [facility] Comment:Testing performed by : [address], [place]., [address] Monocyte abs 0.7 0.2 - 0.8 K/cumm [facility] Comment:Testing performed by : [address], [place]., [address] Eosinophil abs 0.2 0.0 - 0.5 K/cumm [facility] Comment:Testing performed by : [address], [place]., [address] Basophil abs 0.1 0.0 - 0.1 K/cumm [facility] Comment:Testing performed by : [address] [address] Neutrophil pct 60.0 % [facility] Comment: Interpretive Data Percent cell count reference ranges are not reported, since discordance with absolute values may lead to misinterpretation of CBC data. Current Interpretive Data was last revised on 2017. Testing performed by: [address] [address] Imm gran pct 0.9 % [facility] Comment: Interpretive Data Percent cell count reference ranges are not reported, since discordance with absolute values may lead to misinterpretation of CBC data. Current Interpretive Data was last revised on 2017. Testing performed by: [address] [address] Lymphocyte pct 29.4 % CERNER Comment: Interpretive Data Percent cell count reference ranges are not reported, since discordance with absolute values may lead to misinterpretation of CBC data. Current Interpretive Data was last revised on 2017. Testing performed by: [address] [address] Monocyte pct 7.2 % CERNER Comment: Interpretive Data Percent cell count reference ranges are not reported, since discordance with absolute values may lead to misinterpretation of CBC data. Current Interpretive Data was last revised on 2017. Testing performed by: [address] [address] Eosinophil pct 1.9 % JORGE Comment: Interpretive Data Percent cell count reference ranges are not reported, since discordance with absolute values may lead to misinterpretation of CBC data. Current Interpretive Data was last revised on 2017. Testing performed by: [address] [address] Basophil pct 0.6 % JORGE Comment: Interpretive Data Percent cell count reference ranges are not reported, since discordance with absolute values may lead to misinterpretation of CBC data. Current Interpretive Data was last revised on 2017. Testing performed by: [address] [address] Blood 02/03/2024 6:01 AM CDT 02/03/2024 8:28 AM CDT us Notinfile Unknown LAB BLOOD ORDERABLES Final Res ult JORGE 1314 [facility] Department [place] [address] * (ABNORMAL) CBC with auto differential (02/03/2024 6:01 AM CDT) WBC 9.3 3.8 - 9.9 K/cumm JORGE Comment:Testing performed by : [address] [address] Hgb 9.5(L) 11.9 - 15.5 g/dL JORGE Comment:Testing performed by : [address] [address] Hct 29.9(L) 35.6 - 45.5 % JORGE Comment:Testing performed by : [address] [address] Plt 426(H) 150 - 400 K/cumm JORGE Comment:Testing performed by : [address] [address] MPV 10.5 9.1 - 12.3 fL JORGE EDGE Comment:Testing performed by : [address] [address] RBC 3.20(L) 3.90 - 5.20 M/cumm JORGE EDGE Comment:Testing performed by : [address] [address] MCV 93.4 81.3 - 96.4 fL JORGE EDGE Comment:Testing performed by : [address] [address] MCH 29.7 27.1 - 33.3 pg JORGE EDGE Comment:Testing performed by : [address] [address] MCHC 31.8(L) 32.3 - 35.7 g/dL JORGE EDGE Comment:Testing performed by : [address], [address] RDW CV 14.5 11.1 - 14.9 % JORGE EDGE Comment:Testing performed by : [address], [address] RDW SD 49.1(H) 35.7 - 48.1 fL JORGE EDGE Comment:Testing performed by : [address] [address] NRBC abs 0.00 0.00 - 0.01 K/cumm JORGE EDGE Comment:Testing performed by : [address] [address] Blood 02/03/2024 6:01 AM CDT 02/03/2024 8:28 AM CDT us Notinfile Unknown LAB BLOOD ORDERABLES Final Res ult JORGE EDGE 1271 [facility] Department of Laboratories [place], [place] [id number] * (ABNORMAL) Basic metabolic panel (02/03/2024 6:01 AM CDT) Sodium 140 135 - 145 mmol/L JORGE EDGE Comment:Testing performed by : [address] [address] Potassium, pl 4.4 3.3 - 4.9 mmol/L JORGE Comment:Testing performed by : [address] [address] Chloride 104 97 - 110 mmol/L JORGE Comment:Testing performed by : [address], [place]., [address] CO2 22 22 - 32 mmol/L JORGE Comment:Testing performed by : [address], [place]., [address] Anion gap 14 2 - 15 mmol/L JORGE Comment:Testing performed by : [address], [place]., [address] BUN 23 6 - 25 mg/dL JORGE Comment:Testing performed by : [address], [place]., [address] Creatinine 1.40(H) 0.60 - 1.10 mg/dL JORGE Comment:Testing performed by : [address], [place]., [address] Glucose 111 70 - 199 mg/dL [facility] Comment: [...] was last revised 2022. Testing performed by: [address] [address] Calcium 9.3 8.5 - 10.3 mg/dL JORGE Comment:Testing performed by : [address], [place]., [address] Blood 02/03/2024 6:01 AM CDT 02/03/2024 8:28 AM CDT us Notinfile Unknown LAB BLOOD ORDERABLES Final Res ult Performing Organization Address [facility] Co de Phone Number JORGE 8258 [facility] [place] [address] * (ABNORMAL) eGFR (02/02/2024 4:30 [...] reviewed 2021. Testing performed by: [facility], [address] [place] [address], [place]., [address] Blood 02/02/2024 4:30 AM CDT 02/02/2024 9:37 AM CDT us Notinfile Unknown LAB BLOOD ORDERABLES Final Res ult Performing Organization Address City/[facility] Co de Phone Number JORGE 0405 [facility] Department of [place], [place] [id number] * (ABNORMAL) Basic metabolic panel (02/02/2024 4:30 AM CDT) Sodium 141 135 - 145 mmol/L JORGE Comment:Testing performed by : [address] [address] Potassium, pl 4.2 3.3 - 4.9 mmol/L JORGE Comment:Testing performed by : [address] [address] Chloride 106 97 - 110 mmol/L JORGE Comment:Testing performed by : [address], [place]., [address] CO2 23 22 - 32 mmol/L JORGE Comment:Testing performed by : [address], [place]., [address] Anion gap 12 2 - 15 mmol/L JORGE Comment:Testing performed by : [address] [address] BUN 24 6 - 25 mg/dL JORGE Comment:Testing performed by : [address] [address] Creatinine 1.30(H) 0.60 - 1.10 mg/dL JORGE Comment:Testing performed by : [address] [address] Glucose 77 70 - 199 mg/dL JORGE [...] was last revised 2022. Testing performed by: [address] [address] Calcium 8.9 8.5 - 10.3 mg/dL JORGE Comment:Testing performed by : [facility], [address] [place] [address]., [address] Blood 02/02/2024 4:30 AM CDT 02/02/2024 9:37 AM CDT us Notinfile Unknown LAB BLOOD ORDERABLES Final Res ult JORGE 5426 [facility] Department [place] [address] * (ABNORMAL) eGFR (02/01/2024 4:35 [...] reviewed 2021. Testing performed by: [facility], [address] [place] [address]., [address] Blood 02/01/2024 4:35 AM CDT 02/01/2024 8:14 AM CDT us Notinfile Unknown LAB BLOOD ORDERABLES Final Res ult Performing Organization Address City/[facility] Co de Phone Number JORGE 4500 [place] [address] * Magnesium (02/01/2024 4:35 AM CDT) Magnesium 1.9 1.4 - 2.5 mg/dL JORGE Comment:Testing performed by : [address] [address] Blood 02/01/2024 4:35 AM CDT 02/01/2024 8:13 AM CDT us Notinfile Unknown LAB BLOOD ORDERABLES Final Res ult Performing Organization Address [facility] de Phone Number [facility] [place] [address] * (ABNORMAL) Basic metabolic panel (02/01/2024 4:35 AM CDT) Sodium 140 135 - 145 mmol/L JORGE Comment:Testing performed by : [address] [address] Potassium, pl 4.7 3.3 - 4.9 mmol/L JORGE Comment:Testing performed by : [address] [address] Chloride 106 97 - 110 mmol/L JORGE Comment:Testing performed by : [address] [address] CO2 22 22 - 32 mmol/L JORGE Comment:Testing performed by : [address] [address] Anion gap 12 2 - 15 mmol/L JORGE Comment:Testing performed by : [address] [address] BUN 27(H) 6 - 25 mg/dL JORGE Comment:Testing performed by : [address] [address] Creatinine 1.70(H) 0.60 - 1.10 mg/dL JORGE Comment:Testing performed by : [address] [address] Glucose 132 70 - 199 mg/dL JORGE [...] was last revised 2022. Testing performed by: [address] [address] Calcium 8.8 8.5 - 10.3 mg/dL JORGE Comment:Testing performed by : [address] [address] Blood 02/01/2024 4:35 AM CDT 02/01/2024 8:13 AM CDT us Notinfile Unknown LAB BLOOD ORDERABLES Final Res ult JORGE 8428 [facility] Department [place] [address] * (ABNORMAL) eGFR (01/31/2024 5:00 AM CDT) Pathologist [facility] eGFR 36(L) >=60 mL/min/1. 73 m2 JORGE [...] was last reviewed 2021. Testing performed by: [address] [address] Blood 01/31/2024 5:00 AM CDT 01/31/2024 8:23 AM CDT us Notinfile Unknown LAB BLOOD ORDERABLES Final Res ult JORGE 4335 [facility] Department [place] [address] * Differential, auto (01/31/2024 5:00 AM CDT) Neutrophil abs 4.7 1.5 - 6.5 K/cumm JORGE Comment:Testing performed by : [address] [address] Imm gran abs 0.1 0.0 - 0.1 K/cumm JORGE Comment:Testing performed by : [address] [address] Lymphocyte abs 1.8 0.8 - 3.3 K/cumm JORGE Comment:Testing performed by : [address] [address] Monocyte abs 0.7 0.2 - 0.8 K/cumm JORGE Comment:Testing performed by : [address] [address] Eosinophil abs 0.1 0.0 - 0.5 K/cumm [facility] Comment:Testing performed by : [address] [address] Basophil abs 0.1 0.0 - 0.1 K/cumm [facility] Comment:Testing performed by : [address] [address] Neutrophil pct 61.7 % [facility] Comment: Interpretive Data Percent cell count reference ranges are not reported, since discordance with absolute values may lead to misinterpretation of CBC data. Current Interpretive Data was last revised on 2017. Testing performed by: [address] [address] Imm gran pct 1.6 % [facility] Comment: Interpretive Data Percent cell count reference ranges are not reported, since discordance with absolute values may lead to misinterpretation of CBC data. Current Interpretive Data was last revised on 2017. Testing performed by: [address] [address] Lymphocyte pct 24.4 % [facility] Comment: Interpretive Data Percent cell count reference ranges are not reported, since discordance with absolute values may lead to misinterpretation of CBC data. Current Interpretive Data was last revised on 2017. Testing performed by: [address] [address] Monocyte pct 9.7 % [facility] Comment: Interpretive Data Percent cell count reference ranges are not reported, since discordance with absolute values may lead to misinterpretation of CBC data. Current Interpretive Data was last revised on 2017. Testing performed by: [address] [address] Eosinophil pct 1.9 % [facility] Comment: Interpretive Data Percent cell count reference ranges are not reported, since discordance with absolute values may lead to misinterpretation of CBC data. Current Interpretive Data was last revised on 2017. Testing performed by: [address] [address] Basophil pct 0.7 % [facility] Comment: Interpretive Data Percent cell count reference ranges are not reported, since discordance with absolute values may lead to misinterpretation of CBC data. Current Interpretive Data was last revised on 2017. Testing performed by: [facility], [address] [place] [address], [place]., [address] Blood 01/31/2024 5:00 AM CDT 01/31/2024 8:23 AM CDT us Notinfile Unknown LAB BLOOD ORDERABLES Final Res ult JORGE 1536 [facility] Department [place] [address] * (ABNORMAL) Pro B-type natriuretic [...] Last Revised Date: 2017. Testing performed by: [address] [address] Blood 01/31/2024 5:00 AM CDT 01/31/2024 8:23 AM CDT us Notinfile Unknown LAB BLOOD ORDERABLES Final Res ult JORGE 1687 [facility] Department of Laboratories [place], [place] [id number] * (ABNORMAL) CBC with auto differential (01/31/2024 5:00 AM CDT) WBC 7.6 3.8 - 9.9 K/cumm JORGE EDGE Comment:Testing performed by : [address] [address] Hgb 8.2(L) 11.9 - 15.5 g/dL JORGE EDGE Comment:Testing performed by : [address] [address] Hct 26.1(L) 35.6 - 45.5 % JORGE EDGE Comment:Testing performed by : [address] [address] Plt 352 150 - 400 K/cumm JORGE EDGE Comment:Testing performed by : [address] [address] MPV 10.7 9.1 - 12.3 fL JORGE EDGE Comment:Testing performed by : [address] [address] RBC 2.80(L) 3.90 - 5.20 M/cumm JORGE EDGE Comment:Testing performed by : [address] [address] MCV 93.2 81.3 - 96.4 fL JORGE EDGE Comment:Testing performed by : [address] [address] MCH 29.3 27.1 - 33.3 pg JORGE EDGE Comment:Testing performed by : [address] [address] MCHC 31.4(L) 32.3 - 35.7 g/dL JORGE EDGE Comment:Testing performed by : [address] [address] RDW CV 14.6 11.1 - 14.9 % JORGE EDGE Comment:Testing performed by : [address] [address] RDW SD 48.3(H) 35.7 - 48.1 fL JORGE Comment:Testing performed by : [address] [address] NRBC abs 0.00 0.00 - 0.01 K/cumm JORGE Comment:Testing performed by : [address] [address] Blood 01/31/2024 5:00 AM CDT 01/31/2024 8:23 AM CDT us Notinfile Unknown LAB BLOOD ORDERABLES Final Res ult JORGE 5140 [facility] Department [place] [address] * (ABNORMAL) Basic metabolic panel (01/31/2024 5:00 AM CDT) Pathologist [facility] Sodium 142 135 - 145 mmol/L JORGE EDGE Comment:Testing performed by : [address], [address] Potassium, pl 4.5 3.3 - 4.9 mmol/L JORGE Comment:Testing performed by : [address] [address] Chloride 108 97 - 110 mmol/L JORGE Comment:Testing performed by : [address] [address] CO2 21(L) 22 - 32 mmol/L JORGE Comment:Testing performed by : [address] [address] Anion gap 13 2 - 15 mmol/L JORGE Comment:Testing performed by : [address] [address] BUN 28(H) 6 - 25 mg/dL JORGE Comment:Testing performed by : [address] [address] Creatinine 1.50(H) 0.60 - 1.10 mg/dL JORGE Comment:Testing performed by : [address] [address] Glucose 133 70 - 199 mg/dL [facility] Comment: Interpretive Data Fasting glucose >/= 126 [...] was last revised 2022. Testing performed by: [address] [address] Calcium 8.9 8.5 - 10.3 mg/dL JORGE Comment:Testing performed by : [address] [address] Blood 01/31/2024 5:00 AM CDT 01/31/2024 8:23 AM CDT us Notinfile Unknown LAB BLOOD ORDERABLES Final Res ult JORGE 4500 [facility] Department [place] [address] * (ABNORMAL) eGFR (01/29/2024 6:20 AM CDT) [...] reviewed 2021. Testing performed by: [facility], [address] [place] [address]., [address] Blood 01/29/2024 6:20 AM CDT 01/29/2024 8:23 AM CDT us Notinfile Unknown LAB BLOOD ORDERABLES Final Res ult Performing Organization Address [facility] Co de Phone Number JORGE 4500 [facility] Department [place] [address] * Differential, auto (01/29/2024 6:20 AM CDT) Pathologist [facility] Neutrophil abs 5.2 1.5 - 6.5 K/cumm JORGE Comment:Testing performed by : [address] [address] Imm gran abs 0.1 0.0 - 0.1 K/cumm JORGE Comment:Testing performed by : [address] [address] Lymphocyte abs 1.9 0.8 - 3.3 K/cumm JORGE Comment:Testing performed by : [address] [address] Monocyte abs 0.8 0.2 - 0.8 K/cumm JORGE Comment:Testing performed by : [address] [address] Eosinophil abs 0.2 0.0 - 0.5 K/cumm JORGE Comment:Testing performed by : [address] [address] Basophil abs 0.0 0.0 - 0.1 K/cumm JORGE Comment:Testing performed by : [address] [address] Neutrophil pct 63.2 % [facility] Comment: Interpretive Data Percent cell count reference ranges are not reported, since discordance with absolute values may lead to misinterpretation of CBC data. Current Interpretive Data was last revised on 2017. Testing performed by: [address] [address] Imm gran pct 1.2 % [facility] Comment: Interpretive Data Percent cell count reference ranges are not reported, since discordance with absolute values may lead to misinterpretation of CBC data. Current Interpretive Data was last revised on 2017. Testing performed by: [address] [address] Lymphocyte pct 23.4 % [facility] Comment: Interpretive Data Percent cell count reference ranges are not reported, since discordance with absolute values may lead to misinterpretation of CBC data. Current Interpretive Data was last revised on 2017. Testing performed by: [address] [address] Monocyte pct 9.4 % JORGE EDGE Comment: Interpretive Data Percent cell count reference ranges are not reported, since discordance with absolute values may lead to misinterpretation of CBC data. Current Interpretive Data was last revised on 2017. Testing performed by: [address] [address] Eosinophil pct 2.3 % JORGE EDGE Comment: Interpretive Data Percent cell count reference ranges are not reported, since discordance with absolute values may lead to misinterpretation of CBC data. Current Interpretive Data was last revised on 2017. Testing performed by: [address] [address] Basophil pct 0.5 % JORGE EDGE Comment: Interpretive Data Percent cell count reference ranges are not reported, since discordance with absolute values may lead to misinterpretation of CBC data. Current Interpretive Data was last revised on 2017. Testing performed by: [address] [address] Blood 01/29/2024 6:20 AM CDT 01/29/2024 8:23 AM CDT us Notinfile Unknown LAB BLOOD ORDERABLES Final Res ult JORGE 6467 [facility] Department of Laboratories [place], [place] [id number] * (ABNORMAL) CBC with auto differential (01/29/2024 6:20 AM CDT) WBC 8.2 3.8 - 9.9 K/cumm JORGE EDGE Comment:Testing performed by : [address] [address] Hgb 8.5(L) 11.9 - 15.5 g/dL JORGE EDGE Comment:Testing performed by : [address] [address] Hct 26.5(L) 35.6 - 45.5 % JORGE EDGE Comment:Testing performed by : [address] [address] Plt 281 150 - 400 K/cumm JORGE EDGE Comment:Testing performed by : [address] [address] MPV 10.6 9.1 - 12.3 fL JORGE EDGE Comment:Testing performed by : [address] [address] RBC 2.86(L) 3.90 - 5.20 M/cumm JORGE EDGE Comment:Testing performed by : [address] [address] MCV 92.7 81.3 - 96.4 fL JORGE EDGE Comment:Testing performed by : [address] [address] MCH 29.7 27.1 - 33.3 pg JORGE EDGE Comment:Testing performed by : [address] [address] MCHC 32.1(L) 32.3 - 35.7 g/dL JORGE EDGE Comment:Testing performed by : [address] [address] RDW CV 14.1 11.1 - 14.9 % JORGE Comment:Testing performed by : [address], [address] RDW SD 46.3 35.7 - 48.1 fL JORGE EDGE Comment:Testing performed by : [address] [address] NRBC abs 0.00 0.00 - 0.01 K/cumm JORGE EDGE Comment:Testing performed by : [address] [address] Blood 01/29/2024 6:20 AM CDT 01/29/2024 8:23 AM CDT us Notinfile Unknown LAB BLOOD ORDERABLES Final Res ult JORGE EDGE [address] [place] [address] Department of Laboratories [place] [address] * (ABNORMAL) CBC without differential (01/29/2024 6:20 AM CDT) [facility] WBC 8.2 3.8 - 9.9 K/cumm JORGE Comment:Testing performed by : [address] [address] Hgb 8.5(L) 11.9 - 15.5 g/dL JORGE Comment:Testing performed by : [address] [address] Hct 26.5(L) 35.6 - 45.5 % JORGE Comment:Testing performed by : [address], [address] Plt 281 150 - 400 K/cumm JORGE Comment:Testing performed by : [address], [address] MPV 10.6 9.1 - 12.3 fL JORGE Comment:Testing performed by : [address], [address] RBC 2.86(L) 3.90 - 5.20 M/cumm JORGE Comment:Testing performed by : [address], [address] MCV 92.7 81.3 - 96.4 fL JORGE Comment:Testing performed by : [address], [address] MCH 29.7 27.1 - 33.3 pg JORGE Comment:Testing performed by : [address], [address] MCHC 32.1(L) 32.3 - 35.7 g/dL JORGE Comment:Testing performed by : [address], [address] RDW CV 14.1 11.1 - 14.9 % JORGE Comment:Testing performed by : [address], [address] RDW SD 46.3 35.7 - 48.1 fL JORGE Comment:Testing performed by : [address], [address] NRBC abs 0.00 0.00 - 0.01 K/cumm JORGE Comment:Testing performed by : [address] [address] Blood 01/29/2024 6:20 AM CDT 01/29/2024 8:23 AM CDT us Notinfile Unknown LAB BLOOD ORDERABLES Final Res ult Performing Organization Address [facility] Co de Phone Number [address] [address] * Magnesium (01/29/2024 6:20 AM CDT) Pathologist [facility] Magnesium 2.0 1.4 - 2.5 mg/dL JORGE Comment:Testing performed by : [address] [address] Blood 01/29/2024 6:20 AM CDT 01/29/2024 8:23 AM CDT us Notinfile Unknown LAB BLOOD ORDERABLES Final Res ult Performing Organization Address [facility] Co de Phone Number [address] [address] * (ABNORMAL) Comprehensive metabolic panel (01/29/2024 6:20 AM CDT) Pathologist [facility] Sodium 140 135 - 145 mmol/L JORGE Comment:Testing performed by : [address] [address] Potassium, pl 4.5 3.3 - 4.9 mmol/L JORGE Comment:Testing performed by : [address] [address] Chloride 105 97 - 110 mmol/L JORGE Comment:Testing performed by : [address] [address] CO2 20(L) 22 - 32 mmol/L JORGE Comment:Testing performed by : [address] [address] Anion gap 15 2 - 15 mmol/L JORGE Comment:Testing performed by : [address] [address] BUN 26(H) 6 - 25 mg/dL [facility] Comment:Testing performed by : [address] [address] Creatinine 1.20(H) 0.60 - 1.10 mg/dL JORGE Comment:Testing performed by : [address] [address] Glucose 75 70 - 199 mg/dL [facility] Comment: Interpretive Data Fasting glucose >/= 126 [...] was last revised 2022. Testing performed by: [address] [address] Calcium 8.9 8.5 - 10.3 mg/dL [facility] Comment:Testing performed by : [address] [address] Bilirubin, total 0.4 0.1 - 1.2 mg/dL [facility] Comment:Testing performed by : [address] [address] Protein, pl 5.6(L) 6.5 - 8.5 g/dL [facility] Comment:Testing performed by : [address] [address] Albumin 3.0(L) 3.5 - 5.0 g/dL [facility] Comment:Testing performed by : [address] [address] Alk phos 99 40 - 130 Units/L JORGE Comment:Testing performed by : [address] [address] ALT 9 7 - 45 Units/L JORGE Comment:Testing performed by : [address] [address] AST 19 10 - 45 Units/L JORGE Comment:Testing performed by : [address] [address] Blood 01/29/2024 6:20 AM CDT 01/29/2024 8:23 AM CDT us Notinfile Unknown LAB BLOOD ORDERABLES Final Res ult JORGE [address] [facility] Department [place] [address] * (ABNORMAL) Basic metabolic panel (01/29/2024 6:20 AM CDT) Sodium 140 135 - 145 mmol/L JORGE Comment:Testing performed by : [address] [address] Potassium, pl 4.5 3.3 - 4.9 mmol/L JORGE Comment:Testing performed by : [address] [address] Chloride 105 97 - 110 mmol/L JORGE Comment:Testing performed by : [address] [address] CO2 20(L) 22 - 32 mmol/L JORGE Comment:Testing performed by : [address] [address] Anion gap 15 2 - 15 mmol/L JORGE Comment:Testing performed by : [address] [address] BUN 26(H) 6 - 25 mg/dL JORGE Comment:Testing performed by : [address] [address] Creatinine 1.20(H) 0.60 - 1.10 mg/dL JORGE Comment:Testing performed by : [address] [address] Glucose 75 70 - 199 mg/dL JORGE [...] was last revised 2022. Testing performed by: [facility], [address] [place] [address]., [address] Calcium 8.9 8.5 - 10.3 mg/dL JORGE EDGE Comment:Testing performed by : [facility], [address] [place] [address]., [address] Blood 01/29/2024 6:20 AM CDT 01/29/2024 8:23 AM CDT us Notinfile Unknown LAB BLOOD ORDERABLES Final Res ult Performing Organization Address City/[facility]/ZIP Co de Phone Number JORGE [address] [facility] Department [place] [address] * Albumin Creatinine Ratio, Urine (10/29/2023 9:30 AM CDT) Microalb, Ur 7.9 0.0 - 22.9 mg/L [facility] Random Urine Creatinine 109.6 mg/dL [facility] Microalb/Creat Ratio 7.2 0.0 - 29.9 mg/g [facility] Urine 10/29/2023 9:30 AM CDT 10/29/2023 11:19 AM CDT Lia Mariano ACCOUNTANT CLERK LAB URINE ORDERABLES Phyllis l Result [facility] CORE LAB [facility] * Dexa Axial Skeleton Bone Density 1 or 2 Site (12/03/2022 10:04 AM CDT) Anatomical Region Laterality Modality Body N/A Radiographic Luba ging Narrative 12/04/2022 1:59 PM CDT Patient Name: Isabelle Figueredo Date of : 1950 Date of scan: 12/03/2022 Bone mineral density was performed on a HoloStylistpick Discovery Densitometer. ?? Based on machine cross-calibration [...] by the International Society of Clinical Densitometry. [id number] Merna Bell MD IMG DXA PROCEDURES Final Resu lt from Last 3 Months or Most Recently Relevant to Health Maintenance Insurance MEDICARE [facility] MEDICARE [facility] MEDICARE MEDICARE [facility] FEDERAL Advance Directives For more information, please contact: [phone] * Full Code (Latest Code Status on File) Date Activated Date Inactivated Comments 01/20/2024 5:39 PM 01/28/2024 5:37 PM * Full Code Date Activated Date Inactivated Comments 11/25/2023 10:11 AM 11/25/2023 6:07 PM * Full Code Date Activated Date Inactivated Comments 11/15/2023 4:07 PM 11/16/2023 7:24 PM Care Teams Manager Procurement Relationship Specialty Start Date End Date Elpidio Serrato MD PCP - General Internal Medicine 06/09/18
--- OUTSIDE RECORDS SUMMARY | 2024-04-29 21:05 | XMS_ITS | Encounter Summary ---
Author Organization [facility] Address [address] [facility] [address] [place] [address] Phone Care Team Providers Care Grease Buffer Name Role Phone Elpidio Serrato MD Primary Care Provider [phone] Encounter Details Date Type Department Care Team (Latest Contact Info) Description 02/26/2024 12:00 PM CDT Office Visit [facility] Cardiothoracic Surgery [address] [facility] 8th Floor [address] Room [address] [address] Columba Leslie NP [address] [facility] [id number] [place] [address] Coronary artery disease involving [place] heart, unspecified vessel or lesion type, [...] on file Legal Sex Female 3:59 AM TRACE EVIDENCE TECHNICIAN Gender Identity Female 05/13/2021 4:21 PM TRACE EVIDENCE TECHNICIAN Sexual Orientation Not on file documented [...] this encounter Progress Notes * Columba Leslie, MARKETING INSTRUCTOR - 02/26/2024 12:00 PM CDT Cardiac-Thoracic Surgery [...] was found to have multivessel diease on [facility] and was evaluated for CABG. Ms. Isabelle [...] stable to transfer to the Rehab facility ([facility]) for continued gait and strength training. Today [...] fracture 04/29/2023 Cataract CHF (congestive heart failure) ([facility]HCC) ([facility]) Clavicle enlargement 06/16/2018 Will image to determine etiology. Coronary artery disease Coronary artery disease due to calcified coronary lesion 01/20/2024 Diabetes mellitus ([facility]) Diabetic neuropathy ([facility]) 01/21/2024 Diabetic retinopathy ([facility]) Glaucoma Hypertension Hypothyroidism 11/13/2014 Knee pain 01/04/2015 Leucocytosis 01/22/2024 Multiparity History Of ___ Previous Pregnancies - 7 pregnancies, 2 children - C-sections. (Added by TW Conv) Nonproliferative diabetic retinopathy ([facility]) 11/03/2009 Osteoarthritis of knee 12/16/2007 Personal history of other specified conditions History of chest pain - Stress test negative on 08/01/06 (Added by TW Conv) Primary open angle glaucoma (POAG) of both eyes, moderate stage 06/11/2018 Pseudophakia of both eyes 06/11/2018 Thyroid disease Trigger finger of left thumb 12/09/2017 Type 2 diabetes mellitus with hyperlipidemia ([facility]) 12/07/2016 Last A1C 5.9%, without complication Vitamin D deficiency 04/01/2019 Past Surgical History: Procedure Laterality Date CATARACT EXTRACTION Right 06/14/2022 CE/IOL + goniotomy NE APPENDECTOMY unkown dates per pt NE DELIVERY ONLY Section - in 1972 and 1975 (Added by TW Conv) NE TENDON SHEATH INCISION Hand Incision Tendon Sheath [...] her PCP Dr. Serrato, cardiology Fabi Rater MARKETING INSTRUCTOR, and our office as needed. Thank you for allowing us to participate in the care of this very pleasant patient. Please feel free to contact our office at [phone] with any questions or concerns regarding her care. Columba Leslie, MSN, NUCLEAR ENGINEER-BC [facility] Division of Cardiothoracic Surgery documented in this encounter Plan of Treatment Not on file documented as of this encounter Visit Diagnoses Diagnosis Coronary artery disease involving [place] heart, unspecified vessel or lesion type, unspecified whether angina present- Primary documented in this encounter Care Teams Grease Buffer Relationship Specialty Start Date End Date Elpidio Serrato MD PCP - General Internal Medicine 06/09/18 documented as of this encounter
--- OUTSIDE RECORDS SUMMARY | 2024-04-29 21:05 | XMS_ITS | Encounter Summary ---
Author Organization [facility] Healthcare Address [address] [place] [address] Care Team Providers Care Lead Medical Technologist Name Role Phone Elpidio Serrato MD Primary Care Provider [phone] Encounter Details Date Type Department Care Team (Late st Contact Info) Description 02/02/2024 Orders Only [facility] [phone] Unknown, Notinfile Social History Tobacco Use Types [...] on file Legal Sex Female 3:59 AM TELEPHONIC NURSE Gender Identity Female 05/13/2021 4:21 PM TELEPHONIC NURSE Sexual Orientation Not on file documented [...] last reviewed 2021. Testing performed by: [facility], [address] [place] [address]., [address] Blood 02/02/2024 4:30 AM CDT 02/02/2024 9:37 AM CDT us Notinfile Unknown LAB BLOOD ORDERABLES Final Res ult JORGE EDGE [address] [facility] Department [place] [address] * (ABNORMAL) Basic metabolic panel (02/02/2024 4:30 AM CDT) Pathologist [facility] Sodium 141 135 - 145 mmol/L JORGE EDGE Comment:Testing performed by : [facility], [address] [place] [address], [place]., [address] Potassium, pl 4.2 3.3 - 4.9 mmol/L JORGE Comment:Testing performed by : [address], [place]., [address] Chloride 106 97 - 110 mmol/L JORGE Comment:Testing performed by : [address], [place]., [address] CO2 23 22 - 32 mmol/L [facility] Comment:Testing performed by : [address], [place]., [address] Anion gap 12 2 - 15 mmol/L JORGE Comment:Testing performed by : [address], [place]., [address] BUN 24 6 - 25 mg/dL [facility] Comment:Testing performed by : [address], [place]., [address] Creatinine 1.30(H) 0.60 - 1.10 mg/dL JORGE Comment:Testing performed by : [address], [place]., [address] Glucose 77 70 - 199 mg/dL [facility] [...] was last revised 2022. Testing performed by: [address] [address] Calcium 8.9 8.5 - 10.3 mg/dL [facility] Comment:Testing performed by : [address], [place]., [address] Blood 02/02/2024 4:30 AM CDT 02/02/2024 9:37 AM CDT us Notinfile Unknown LAB BLOOD ORDERABLES Final Res ult JORGE [facility] Department [place] [address] documented in this encounter Visit Diagnoses Not [...] Surveillance for admission to 7300. CAPRI Tolbert [facility] 01/21/2024 01/21/2024 02/04/2024 3:05 AM C DT documented as of this encounter Care Teams Lead Medical Technologist Relationship Specialty Start Date End Date Elpidio Serrtao MD PCP - General Internal Medicine 06/09/18 documented as of this encounter
--- OUTSIDE RECORDS SUMMARY | 2024-04-29 21:05 | XMS_ITS | Encounter Summary ---
Author Organization [facility] Healthcare Address [address] [place] [address] Care Team Providers Care Dock Worker Name Role Phone Elpidio Serrato MD Primary Care Provider [phone] Encounter Details Date Type Department Care Team (Late st Contact Info) Description 02/01/2024 Orders Only [facility] [phone] Unknown, Notinfile Social History Tobacco Use Types [...] file Legal Sex Female 3:59 AM ASSISTANT ACTIVITIES DIRECTOR Gender Identity Female 05/13/2021 4:21 PM ASSISTANT ACTIVITIES DIRECTOR Sexual Orientation Not on file documented [...] was last reviewed 2021. Testing performed by: [facility], [address] [place] [address]., [address] Blood 02/01/2024 4:35 AM CDT 02/01/2024 8:14 AM CDT us Notinfile Unknown LAB BLOOD ORDERABLES Final Res ult JORGE [address] [facility] Department [place] [address] * (ABNORMAL) Basic metabolic panel (02/01/2024 4:35 AM CDT) Sodium 140 135 - 145 mmol/L JORGE Comment:Testing performed by : [address] [address] Potassium, pl 4.7 3.3 - 4.9 mmol/L JORGE Comment:Testing performed by : [address], [place]., [address] Chloride 106 97 - 110 mmol/L JORGE Comment:Testing performed by : [address], [place]., [address] CO2 22 22 - 32 mmol/L JORGE Comment:Testing performed by : [address] [address] Anion gap 12 2 - 15 mmol/L JORGE Comment:Testing performed by : [address], [place]., [address] BUN 27(H) 6 - 25 mg/dL JORGE Comment:Testing performed by : [address] [address] Creatinine 1.70(H) 0.60 - 1.10 mg/dL JORGE Comment:Testing performed by : [address] [address] Glucose 132 70 - 199 mg/dL JORGE [...] was last revised 2022. Testing performed by: [address] [address] Calcium 8.8 8.5 - 10.3 mg/dL JORGE Comment:Testing performed by : [address] [address] Blood 02/01/2024 4:35 AM CDT 02/01/2024 8:13 AM CDT us Notinfile Unknown LAB BLOOD ORDERABLES Final Res ult Performing Organization Address [facility] Co de Phone Number [id number] [address] * Magnesium (02/01/2024 4:35 AM CDT) Magnesium 1.9 1.4 - 2.5 mg/dL JORGE Comment:Testing performed by : [facility], [address] [place] [address]., [address] Blood 02/01/2024 4:35 AM CDT 02/01/2024 8:13 AM CDT us Notinfile Unknown LAB BLOOD ORDERABLES Final Res ult Performing Organization Address [facility] [place] de Phone Number [id number] [address] documented in this encounter Visit Diagnoses Not [...] Surveillance for admission to 73. CAPRI Tolbert [facility] 01/21/2024 01/21/2024 02/04/2024 3:05 AM C DT documented as of this encounter Care Teams Dock Worker Relationship Specialty Start Date End Date Elpidio Serrato MD PCP - General Internal Medicine 06/09/18 documented as of this encounter
--- OUTSIDE RECORDS SUMMARY | 2024-04-29 21:05 | XMS_ITS | Encounter Summary ---
Author Organization [facility] Address [address] [place] [address] Phone Care Team Providers Care Drilling Plant Operator Name Role Phone Elpidio Serrato MD Primary Care Provider [phone] Encounter Details Date Type Department Care Team (Late st Contact Info) Description 02/19/2024 Telephone [facility] Cardiology [address] [facility] 8th [place] [address] [place] [phone] Rater, JAMES Dunlap [address] [facility] [address] [place] [address] Social History Tobacco Use Types Packs/Day Years [...] on file Legal Sex Female 3:59 AM UPKEEP MECHANIC Gender Identity Female 05/13/2021 4:21 PM UPKEEP MECHANIC Sexual Orientation Not on file documented [...] on filedocumented in this encounter Care Teams Drilling Plant Operator Relationship Specialty Start Date End Date Elpidio Serrato MD PCP - General Internal Medicine 06/09/18 documented as of this encounter
--- OUTSIDE RECORDS SUMMARY | 2024-04-29 21:05 | XMS_ITS | Encounter Summary ---
Author Organization [facility] Healthcare Address [address] [place] [address] Care Team Providers Care Progressive Care Manager Name Role Phone Elpidio Serrato MD Primary Care Provider [phone] Encounter Details Date Type Department Care Team (Late st Contact Info) Description 01/31/2024 Orders Only [facility] Interim [phone] Unknown, Notinfile Social History Tobacco Use Types [...] on file Legal Sex Female 3:59 AM SUPERVISORY LIFEGUARD Gender Identity Female 05/13/2021 4:21 PM SUPERVISORY LIFEGUARD Sexual Orientation Not on file documented as [...] * (ABNORMAL) eGFR (01/31/2024 5:00 AM CDT) [facility] eGFR 36(L) >=60 mL/min/1. 73 m2 JORGE [...] was last reviewed 2021. Testing performed by: [facility], [address] [place] [address], [place]., [address] Blood 01/31/2024 5:00 AM CDT 01/31/2024 8:23 AM CDT us Notinfile Unknown LAB BLOOD ORDERABLES Final Res ult JORGE EDGE [address] [facility] [place] [address] * (ABNORMAL) Pro B-type natriuretic peptide (01/31/2024 [...] Last Revised Date: 2017. Testing performed by: [address] [address] Blood 01/31/2024 5:00 AM CDT 01/31/2024 8:23 AM CDT us Notinfile Unknown LAB BLOOD ORDERABLES Final Res ult JORGE [address] [facility] Department [place] [address] * (ABNORMAL) Basic metabolic panel (01/31/2024 5:00 AM CDT) Sodium 142 135 - 145 mmol/L JORGE Comment:Testing performed by : [address] [address] Potassium, pl 4.5 3.3 - 4.9 mmol/L JORGE Comment:Testing performed by : [address] [address] Chloride 108 97 - 110 mmol/L JORGE Comment:Testing performed by : [address] [address] CO2 21(L) 22 - 32 mmol/L JORGE Comment:Testing performed by : [address] [address] Anion gap 13 2 - 15 mmol/L JORGE Comment:Testing performed by : [address] [address] BUN 28(H) 6 - 25 mg/dL JORGE Comment:Testing performed by : [address] [address] Creatinine 1.50(H) 0.60 - 1.10 mg/dL JORGE Comment:Testing performed by : [address] [address] Glucose 133 70 - 199 mg/dL JORGE [...] was last revised 2022. Testing performed by: [address] [address] Calcium 8.9 8.5 - 10.3 mg/dL JORGE Comment:Testing performed by : [address] [address] Blood 01/31/2024 5:0 0 AM CDT 01/31/2024 8:23 AM CDT us Notinfile Unknown LAB BLOOD ORDERABLES Final Res ult JORGE [address] [facility] Department [place] [address] * Differential, auto (01/31/2024 5:00 AM CDT) Neutrophil abs 4.7 1.5 - 6.5 K/cumm JORGE Comment:Testing performed by : [address] [address] Imm gran abs 0.1 0.0 - 0.1 K/cumm JORGE Comment:Testing performed by : [address] [address] Lymphocyte abs 1.8 0.8 - 3.3 K/cumm JORGE Comment:Testing performed by : [address] [address] Monocyte abs 0.7 0.2 - 0.8 K/cumm JORGE Comment:Testing performed by : [address] [address] Eosinophil abs 0.1 0.0 - 0.5 K/cumm [facility] Comment:Testing performed by : [address] [address] Basophil abs 0.1 0.0 - 0.1 K/cumm [facility] Comment:Testing performed by : [address] [address] Neutrophil pct 61.7 % [facility] Comment: Interpretive Data Percent cell count reference ranges are not reported, since discordance with absolute values may lead to misinterpretation of CBC data. Current Interpretive Data was last revised on 2017. Testing performed by: [address] [address] Imm gran pct 1.6 % [facility] Comment: Interpretive Data Percent cell count reference ranges are not reported, since discordance with absolute values may lead to misinterpretation of CBC data. Current Interpretive Data was last revised on 2017. Testing performed by: [address] [address] Lymphocyte pct 24.4 % [facility] Comment: Interpretive Data Percent cell count reference ranges are not reported, since discordance with absolute values may lead to misinterpretation of CBC data. Current Interpretive Data was last revised on 2017. Testing performed by: [address] [address] Monocyte pct 9.7 % [facility] Comment: Interpretive Data Percent cell count reference ranges are not reported, since discordance with absolute values may lead to misinterpretation of CBC data. Current Interpretive Data was last revised on 2017. Testing performed by: [address] [address] Eosinophil pct 1.9 % [facility] Comment: Interpretive Data Percent cell count reference ranges are not reported, since discordance with absolute values may lead to misinterpretation of CBC data. Current Interpretive Data was last revised on 2017. Testing performed by: [address] [address] Basophil pct 0.7 % [facility] Comment: Interpretive Data Percent cell count reference ranges are not reported, since discordance with absolute values may lead to misinterpretation of CBC data. Current Interpretive Data was last revised on 2017. Testing performed by: [address] [address] Blood 01/31/2024 5:00 AM CDT 01/31/2024 8:23 AM CDT us Notinfile Unknown LAB BLOOD ORDERABLES Final Res ult JORGE [address] [facility] Department [place] [address] * (ABNORMAL) CBC with auto differential (01/31/2024 5:00 AM CDT) WBC 7.6 3.8 - 9.9 K/cumm [facility] Comment:Testing performed by : [address] [address] Hgb 8.2(L) 11.9 - 15.5 g/dL [facility]GE Comment:Testing performed by : [address] [address] Hct 26.1(L) 35.6 - 45.5 % [facility] Comment:Testing performed by : [address] [address] Plt 352 150 - 400 K/cumm JORGE Comment:Testing performed by : [address] [address] MPV 10.7 9.1 - 12.3 fL JORGE Comment:Testing performed by : [address] [address] RBC 2.80(L) 3.90 - 5.20 M/cumm JORGE Comment:Testing performed by : [address] [address] MCV 93.2 81.3 - 96.4 fL [facility] EDGE Comment:Testing performed by : [address] [address] MCH 29.3 27.1 - 33.3 pg J[facility]GE EDGE Comment:Testing performed by : [address] [address] MCHC 31.4(L) 32.3 - 35.7 g/dL JORGE Comment:Testing performed by : [address], [address] RDW CV 14.6 11.1 - 14.9 % JORGE Comment:Testing performed by : [address] [address] RDW SD 48.3(H) 35.7 - 48.1 fL JORGE Comment:Testing performed by : [address] [address] NRBC abs 0.00 0.00 - 0.01 K/cumm JORGE Comment:Testing performed by : [address], [address] Blood 01/31/2024 5:00 AM CDT 01/31/2024 8:23 AM CDT us Notinfile Unknown LAB BLOOD ORDERABLES Final Res ult JORGE [address] [facility] Department [place] [address] documented in this encounter Visit Diagnoses Not [...] undergoing Ring Surveillance for admission to [facility]. CAPRI Tolbert [facility] 01/21/2024 01/21/2024 02/04/2024 3:05 AM C DT documented as of this encounter Care Teams Progressive Care Manager Relationship Specialty Start Date End Date Elpidio Serrato MD PCP - General Internal Medicine 06/09/18 documented as of this encounter
--- OUTSIDE RECORDS SUMMARY | 2024-04-29 21:05 | XMS_ITS | Encounter Summary ---
Author Organization [facility] Address [address] [place] [address] Phone Care Team Providers Care Photographic Lithographer Name Role Phone Elpidio Serrato MD Primary Care Provider [phone] Reason for Visit * Reason Onset Date Comments PO 02/14/2024 [place] Encounter Details Date Type Department Care Team (Late st Contact Info) Description 02/14/2024 Telephone [facility] Endocrinology Metabolism and Lipid [address] [facility] Advanced Medicine 13th [place] [address] [place] [address] Martha Boyer RMA PO (Solara) [...] on file Legal Sex Female 3:59 AM DYE EXPERT Gender Identity Female 05/13/2021 4:21 PM DYE EXPERT Sexual Orientation Not on file documented as of this encounter Miscellaneous Notes * Telephone Encounter - Martha Boyer RMA - 02/14/2024 12:09 PM CDT Completed form faxed to [phone]. See Media. documented in this encounter Plan of Treatment Not on file documented as of this encounter Visit Diagnoses Not on filedocumented in this encounter Care Teams Photographic Lithographer Relationship Specialty Start Date End Date Elpidio Serrato MD PCP - General Internal Medicine 06/09/18 documented as of this encounter
--- OUTSIDE RECORDS SUMMARY | 2024-04-29 21:05 | XMS_ITS | Encounter Summary ---
Author Organization [facility] Healthcare Address [address] [place] [address] Care Team Providers Care Director Of Fundraising Name Role Phone Elpidio Serrato MD Primary Care Provider [phone] Encounter Details Date Type Department Care Team (Late st Contact Info) Description 02/05/2024 Orders Only [facility] Inter[facility] [phone] Unknown, Notinfile Social History Tobacco Use Types [...] on file Legal Sex Female 3:59 AM GROUP INSURANCE SPECIAL AGENT Gender Identity Female 05/13/2021 4:21 PM GROUP INSURANCE SPECIAL AGENT Sexual Orientation Not on file documented as [...] was last reviewed 2021. Testing performed by: [facility], [address] [place] [address], [place]., [address] Blood 02/05/2024 6:06 AM CDT 02/05/2024 9:48 AM CDT us Notinfile Unknown LAB BLOOD ORDERABLES Final Res ult JORGE [facility] Department [place] [address] * (ABNORMAL) Basic metabolic panel (02/05/2024 6:06 AM CDT) [facility] Signature Sodium 140 135 - 145 mmol/L JORGE Comment:Testing performed by : [address] [address] Potassium, pl 4.6 3.3 - 4.9 mmol/L JORGE Comment:Testing performed by : [address] [address] Chloride 107 97 - 110 mmol/L JORGE Comment:Testing performed by : [address] [address] CO2 22 22 - 32 mmol/L JORGE Comment:Testing performed by : [address], [place]., [address] Anion gap 11 2 - 15 mmol/L JORGE Comment:Testing performed by : [address] [address] BUN 26(H) 6 - 25 mg/dL JORGE Comment:Testing performed by : [address] [address] Creatinine 1.40(H) 0.60 - 1.10 mg/dL JORGE Comment:Testing performed by : [address] [address] Glucose 107 70 - 199 mg/dL JORGE [...] was last revised 2022. Testing performed by: [address] [address] Calcium 9.1 8.5 - 10.3 mg/dL JORGE Comment:Testing performed by : [address] [address] Blood 02/05/2024 6:06 AM CDT 02/05/2024 9:48 AM CDT us Notinfile Unknown LAB BLOOD ORDERABLES Final Res ult JORGE [address] [facility] Department [place] [address] * Differential, auto (02/05/2024 6:06 AM CDT) Neutrophil abs 3.6 1.5 - 6.5 K/cumm JORGE Comment:Testing performed by : [address] [address] Imm gran abs 0.0 0.0 - 0.1 K/cumm JORGE Comment:Testing performed by : [address] [address] Lymphocyte abs 1.6 0.8 - 3.3 K/cumm JORGE Comment:Testing performed by : [address] [address] Monocyte abs 0.6 0.2 - 0.8 K/cumm JORGE Comment:Testing performed by : [address] [address] Eosinophil abs 0.1 0.0 - 0.5 K/cumm JORGE Comment:Testing performed by : [address] [address] Basophil abs 0.0 0.0 - 0.1 K/cumm JORGE Comment:Testing performed by : [address] [address] Neutrophil pct 59.7 % JORGE Comment: Interpretive Data Percent cell count reference ranges are not reported, since discordance with absolute values may lead to misinterpretation of CBC data. Current Interpretive Data was last revised on 2017. Testing performed by: [address] [address] Imm gran pct 0.7 % [facility] Comment: Interpretive Data Percent cell count reference ranges are not reported, since discordance with absolute values may lead to misinterpretation of CBC data. Current Interpretive Data was last revised on 2017. Testing performed by: [address] [address] Lymphocyte pct 26.8 % [facility] Comment: Interpretive Data Percent cell count reference ranges are not reported, since discordance with absolute values may lead to misinterpretation of CBC data. Current Interpretive Data was last revised on 2017. Testing performed by: [address] [address] Monocyte pct 10.1 % [facility] Comment: Interpretive Data Percent cell count reference ranges are not reported, since discordance with absolute values may lead to misinterpretation of CBC data. Current Interpretive Data was last revised on 2017. Testing performed by: [address] [address] Eosinophil pct 2.0 % [facility] Comment: Interpretive Data Percent cell count reference ranges are not reported, since discordance with absolute values may lead to misinterpretation of CBC data. Current Interpretive Data was last revised on 2017. Testing performed by: [address] [address] Basophil pct 0.7 % [facility] Comment: Interpretive Data Percent cell count reference ranges are not reported, since discordance with absolute values may lead to misinterpretation of CBC data. Current Interpretive Data was last revised on 2017. Testing performed by: [address] [address] Blood 02/05/2024 6:06 AM CDT 02/05/2024 9:48 AM CDT us Notinfile Unknown LAB BLOOD ORDERABLES Final Res ult JORGE EDGE [address] [facility] [place] [address] * (ABNORMAL) CBC with auto differential (02/05/2024 6:06 AM CDT) [facility] WBC 6.0 3.8 - 9.9 K/cumm JORGE Comment:Testing performed by : [address], [address] Hgb 8.1(L) 11.9 - 15.5 g/dL JORGE Comment:Testing performed by : [address] [address] Hct 26.6(L) 35.6 - 45.5 % JORGE Comment:Testing performed by : [address], [address] Plt 343 150 - 400 K/cumm JORGE Comment:Testing performed by : [address], [address] MPV 10.4 9.1 - 12.3 fL JORGE Comment:Testing performed by : [address], [address] RBC 2.79(L) 3.90 - 5.20 M/cumm JORGE Comment:Testing performed by : [address], [address] MCV 95.3 81.3 - 96.4 fL JORGE Comment:Testing performed by : [address], [address] MCH 29.0 27.1 - 33.3 pg JORGE Comment:Testing performed by : [address], [address] MCHC 30.5(L) 32.3 - 35.7 g/dL JORGE Comment:Testing performed by : [address], [address] RDW CV 14.6 11.1 - 14.9 % JORGE Comment:Testing performed by : [address], [address] RDW SD 50.4(H) 35.7 - 48.1 fL JORGE Comment:Testing performed by : [address], [address] NRBC abs 0.00 0.00 - 0.01 K/cumm JORGE Comment:Testing performed by : [facility], [address] [place] [address]., [address] Blood 02/05/2024 6:06 AM CDT 02/05/2024 9:48 AM CDT us Notinfile Unknown LAB BLOOD ORDERABLES Final Res ult [facility] [address] [facility] [place] [address] documented in this encounter Visit Diagnoses Not on filedocumented in this encounter Care Teams Director Of Fundraising Relationship Specialty Start Date End Date Elpidio Serrato MD PCP - General Internal Medicine 06/09/18 documented as of this encounter
--- OUTSIDE RECORDS SUMMARY | 2024-04-29 21:05 | XMS_ITS | Encounter Summary ---
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 Testing performed by: [facility], [address] [place] [address], [place]., [address] Blood 01/29/2024 6:20 AM CDT 01/29/2024 8:23 AM CDT us Notinfile Unknown LAB BLOOD ORDERABLES Final Res ult JORGE 4500 [facility] Department [place] [address] * (ABNORMAL) Comprehensive metabolic panel (01/29/2024 6:20 AM CDT) Sodium 140 135 - 145 mmol/L JORGE Comment:Testing performed by : [address] [address] Potassium, pl 4.5 3.3 - 4.9 mmol/L JORGE Comment:Testing performed by : [address] [address] Chloride 105 97 - 110 mmol/L JORGE Comment:Testing performed by : [address] [address] CO2 20(L) 22 - 32 mmol/L JORGE Comment:Testing performed by : [address] [address] Anion gap 15 2 - 15 mmol/L JORGE Comment:Testing performed by : [address] [address] BUN 26(H) 6 - 25 mg/dL JORGE Comment:Testing performed by : [address] [address] Creatinine 1.20(H) 0.60 - 1.10 mg/dL JORGE Comment:Testing performed by : [address] [address] Glucose 75 70 - 199 mg/dL JORGE [...] was last revised 2022. Testing performed by: [address] [address] Calcium 8.9 8.5 - 10.3 mg/dL JORGE Comment:Testing performed by : [address] [address] Bilirubin, total 0.4 0.1 - 1.2 mg/dL JORGE Comment:Testing performed by : [address] [address] Protein, pl 5.6(L) 6.5 - 8.5 g/dL JORGE Comment:Testing performed by : [address] [address] Albumin 3.0(L) 3.5 - 5.0 g/dL JORGE Comment:Testing performed by : [address] [address] Alk phos 99 40 - 130 Units/L JORGE Comment:Testing performed by : [address] [address] ALT 9 7 - 45 Units/L JORGE Comment:Testing performed by : [address] [address] AST 19 10 - 45 Units/L JORGE Comment:Testing performed by : [address] [address] Blood 01/29/2024 6:20 AM CDT 01/29/2024 8:23 AM CDT us Notinfile Unknown LAB BLOOD ORDERABLES Final Res ult JORGE EDGE 6132 [facility] Department [place] [address] * (ABNORMAL) Basic metabolic panel (01/29/2024 6:20 AM CDT) Sodium 140 135 - 145 mmol/L JORGE EDGE Comment:Testing performed by : [facility], [address] [place] [address]., [address] Potassium, pl 4.5 3.3 - 4.9 mmol/L JORGE Comment:Testing performed by : [address], [place]., [address] Chloride 105 97 - 110 mmol/L JORGE Comment:Testing performed by : [address], [place]., [address] CO2 20(L) 22 - 32 mmol/L JORGE Comment:Testing performed by : [address], [place]., [address] Anion gap 15 2 - 15 mmol/L JORGE Comment:Testing performed by : [address] [address] BUN 26(H) 6 - 25 mg/dL JORGE Comment:Testing performed by : [address] [address] Creatinine 1.20(H) 0.60 - 1.10 mg/dL JORGE Comment:Testing performed by : [address], [place]., [address] Glucose 75 70 - 199 mg/dL [facility] [...] was last revised 2022. Testing performed by: [address] [address] Calcium 8.9 8.5 - 10.3 mg/dL JORGE Comment:Testing performed by : [address], [place]., [address] Blood 01/29/2024 6:20 AM CDT 01/29/2024 8:23 AM CDT us Notinfile Unknown LAB BLOOD ORDERABLES Final Res ult Performing Organization Address City/[facility]/ZIP Co de Phone Number JORGE [address] [place] [address] * Magnesium (01/29/2024 6:20 AM CDT) Magnesium 2.0 1.4 - 2.5 mg/dL JORGE Comment:Testing performed by : [address] [address] Blood 01/29/2024 6:20 AM CDT 01/29/2024 8:23 AM CDT us Notinfile Unknown LAB BLOOD ORDERABLES Final Res ult Performing Organization Address [facility] de Phone Number JORGE [facility] [place] [address] * Differential, auto (01/29/2024 6:20 AM CDT) Neutrophil abs 5.2 1.5 - 6.5 K/cumm JORGE Comment:Testing performed by : [address] [address] Imm gran abs 0.1 0.0 - 0.1 K/cumm JORGE Comment:Testing performed by : [address] [address] Lymphocyte abs 1.9 0.8 - 3.3 K/cumm JORGE Comment:Testing performed by : [address] [address] Monocyte abs 0.8 0.2 - 0.8 K/cumm JORGE Comment:Testing performed by : [address] [address] Eosinophil abs 0.2 0.0 - 0.5 K/cumm JORGE Comment:Testing performed by : [address] [address] Basophil abs 0.0 0.0 - 0.1 K/cumm JORGE Comment:Testing performed by : [address] [address] Neutrophil pct 63.2 % [facility] Comment: Interpretive Data Percent cell count reference ranges are not reported, since discordance with absolute values may lead to misinterpretation of CBC data. Current Interpretive Data was last revised on 2017. Testing performed by: [address] [address] Imm gran pct 1.2 % [facility] Comment: Interpretive Data Percent cell count reference ranges are not reported, since discordance with absolute values may lead to misinterpretation of CBC data. Current Interpretive Data was last revised on 2017. Testing performed by: [address] [address] Lymphocyte pct 23.4 % [facility] Comment: Interpretive Data Percent cell count reference ranges are not reported, since discordance with absolute values may lead to misinterpretation of CBC data. Current Interpretive Data was last revised on 2017. Testing performed by: [address] [address] Monocyte pct 9.4 % [facility] Comment: Interpretive Data Percent cell count reference ranges are not reported, since discordance with absolute values may lead to misinterpretation of CBC data. Current Interpretive Data was last revised on 2017. Testing performed by: [address] [address] Eosinophil pct 2.3 % [facility] Comment: Interpretive Data Percent cell count reference ranges are not reported, since discordance with absolute values may lead to misinterpretation of CBC data. Current Interpretive Data was last revised on 2017. Testing performed by: [address] [address] Basophil pct 0.5 % [facility] Comment: Interpretive Data Percent cell count reference ranges are not reported, since discordance with absolute values may lead to misinterpretation of CBC data. Current Interpretive Data was last revised on 2017. Testing performed by: [address] [address] Blood 01/29/2024 6:20 AM CDT 01/29/2024 8:23 AM CDT us Notinfile Unknown LAB BLOOD ORDERABLES Final Res ult JORGE EDGE 45[address] [facility] Department [place] [address] * (ABNORMAL) CBC with auto differential (01/29/2024 6:20 AM CDT) WBC 8.2 3.8 - 9.9 K/cumm JORGE EDGE Comment:Testing performed by : [address] [address] Hgb 8.5(L) 11.9 - 15.5 g/dL JORGE EDGE Comment:Testing performed by : [address] [address] Hct 26.5(L) 35.6 - 45.5 % JORGE Comment:Testing performed by : [address] [address] Plt 281 150 - 400 K/cumm JORGE Comment:Testing performed by : [address] [address] MPV 10.6 9.1 - 12.3 fL JORGE EDGE Comment:Testing performed by : [address] [address] RBC 2.86(L) 3.90 - 5.20 M/cumm JORGE EDGE Comment:Testing performed by : [address] [address] MCV 92.7 81.3 - 96.4 fL JORGE EDGE Comment:Testing performed by : [address] [address] MCH 29.7 27.1 - 33.3 pg JORGE EDGE Comment:Testing performed by : [address] [address] MCHC 32.1(L) 32.3 - 35.7 g/dL JORGE Comment:Testing performed by : [address] [address] RDW CV 14.1 11.1 - 14.9 % JORGE EDGE Comment:Testing performed by : [address] [address] RDW SD 46.3 35.7 - 48.1 fL JORGE EDGE Comment:Testing performed by : [address] [address] NRBC abs 0.00 0.00 - 0.01 K/cumm JORGE EDGE Comment:Testing performed by : [address] [address] Blood 01/29/2024 6:20 AM CDT 01/29/2024 8:23 AM CDT us Notinfile Unknown LAB BLOOD ORDERABLES Final Res ult JORGE [facility] Department [place] [address] * (ABNORMAL) CBC without differential (01/29/2024 6:20 AM CDT) WBC 8.2 3.8 - 9.9 K/cumm JORGE EDGE Comment:Testing performed by : [address] [address] Hgb 8.5(L) 11.9 - 15.5 g/dL JORGE EDGE Comment:Testing performed by : [address] [address] Hct 26.5(L) 35.6 - 45.5 % JORGE EDGE Comment:Testing performed by : [address] [address] Plt 281 150 - 400 K/cumm JORGE EDGE Comment:Testing performed by : [address] [address] MPV 10.6 9.1 - 12.3 fL JORGE EDGE Comment:Testing performed by : [address] [address] RBC 2.86(L) 3.90 - 5.20 M/cumm JORGE EDGE Comment:Testing performed by : [address] [address] MCV 92.7 81.3 - 96.4 fL JORGE Comment:Testing performed by : [address] [address] MCH 29.7 27.1 - 33.3 pg JORGE EDGE Comment:Testing performed by : [address] [address] MCHC 32.1(L) 32.3 - 35.7 g/dL JORGE Comment:Testing performed by : [address], [address] RDW CV 14.1 11.1 - 14.9 % JORGE Comment:Testing performed by : [address], [address] RDW SD 46.3 35.7 - 48.1 fL JORGE Comment:Testing performed by : [address], [address] NRBC abs 0.00 0.00 - 0.01 K/cumm JORGE Comment:Testing performed by : [address], [address] Blood 01/29/2024 6:20 AM CDT 01/29/2024 8:23 AM CDT us Notinfile Unknown LAB BLOOD ORDERABLES Final Res ult JORGE 5973 [facility] Department [place] [address] documented in this encounter Visit [...] documented as of this encounter Care Teams Geodetic Technician Relationship Specialty Start Date End Date Elpidio Serrato MD PCP - General Internal Medicine 06/09/18 documented as of this encounter
--- OUTSIDE RECORDS SUMMARY | 2024-04-29 21:05 | XMS_ITS | Encounter Summary ---
Author Organization [facility] Address [address] [place] [address] Phone Care Team Providers Care Float Remover Name Role Phone Elpidio Serrato MD Primary Care Provider [phone] Encounter Details Date Type Department Care Team (Late st Contact Info) Description 02/14/2024 11:30 AM CDT Office Visit [facility] Cardiology [address] 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 You can start after you see Columba and PT says it is OK Please call for any questions [phone] Goal Blood Pressure is 130/80 or less, [...] of test: 11/15/2023 Hospital #: [id number] Location: [facility] Interpreted by: Vandana Isaacs MD Inclusion Intern: Olimpia Brandon RDCS RN: Shelby Jacobo RN Reason for Test: Dyspnea Study quality: Technically good Referring Physician: GAURAV COLLIER MD Contrast Agent: 3.0 ml Optison Administered BASELINE STUDY: Wall Motion Scoring (1=Normal 2=Hypo 3=Akinetic 4=Dyskin./Aneurysm 0=Not visualized) Parasternal Long [place]:MAS=1 BAS=1 MIL=2 ROBERT=2 Parasternal Short [place]:MAS=1 MIS=1 SC=1 MIL=2 MAL=1 MA=1 Apical 4 Chambers:=1 MIS=1 BIS=3 BAL=1 MAL=1 AL=1 AC=3 Apical 2 Chambers:AI=1 SC=1 BI=3 BA=1 MA=1 AA=2 AC=3 Ejection Fraction: [...] No MS/ mild MR; No TR; No MA. Diastolic Function: Grade I (impaired relaxation) with nl est filling pressures.Unable to estimate PASP d/t inadequate TR jet. Baseline HR: 77 Baseline BP: 115/57 Conduction Defects: RBBB + LAFB Resting ECG Comments: Oriana Jensen Medications: Lasix, Aspirin, Lipitor, evothyroxine, Metformin, Insulin Meds held: none POST DOBUTAMINE STUDY: Wall Motion Scoring (1=Normal 2=Hypo 3=Akinetic 4=Dyskin./Aneurysm 0=Not visualized) Parasternal Long [place]:MAS=1 BAS=1 MIL=3 ROBERT=3 Parasternal Short [place]:MAS=1 MIS=1 SC=1 MIL=3 MAL=1 MA=1 Apical 4 Chambers:=1 MIS=1 BIS=1 BAL=1 MAL=1 AL=1 AC=2 Apical 2 Chambers:AI=1 SC=1 BI=3 BA=1 MA=1 AA=1 AC=2 Intravenous dobutamine [...] system. Occluded in the proximal segment with mgcc-kg-qsrwo septal collaterals from the LAD COMPLICATIONS: None. [...] 6 months to establish with a general hotel receptionist. She would like to be seen at the [facility]. Gaurav Collier, Cardiology Nurse Practitioner documented [...] 02/05/2024 added in this encounter Care Teams Float Remover Relationship Specialty Start Date End Date Elpidio Serrato MD PCP - General Internal Medicine 06/09/18 documented as of this encounter
--- OUTSIDE RECORDS SUMMARY | 2024-04-29 21:05 | XMS_ITS | Encounter Summary ---
Author Organization [facility] Address [address] [facility] [address] [place] [address] Phone Care Team Providers Care Multi Share Program Coordinator Name Role Phone Elpidio Serrato MD Primary Care Provider [phone] Encounter Details Date Type Department Care Team (Late st Contact Info) Description 01/28/2024 Orders Only [facility] Surgery [address] [facility] Medicine 8th [place] [address] [place] [address] Stan Treviño MD [address] 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 CAPRI Tolbert [facility] 01/21/2024 01/21/2024 02/04/2024 3:05 AM C DT documented as of this encounter Care Teams Multi Share Program Coordinator Relationship Specialty Start Date End Date Elpidio Serrato MD PCP - General Internal Medicine 06/09/18 documented as of this encounter
--- OUTSIDE RECORDS SUMMARY | 2024-04-29 21:05 | XMS_ITS | Encounter Summary ---
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 Testing performed by: [facility], [address] [place] [address], [place]., [address] Blood 02/03/2024 6:01 AM CDT 02/03/2024 8:28 AM CDT us Notinfile Unknown LAB BLOOD ORDERABLES Final Res ult JORGE [facility] [place] [address] * (ABNORMAL) Basic metabolic panel (02/03/2024 6:01 AM CDT) [facility] Signature Sodium 140 135 - 145 mmol/L JORGE Comment:Testing performed by : [address], [place]., [address] Potassium, pl 4.4 3.3 - 4.9 mmol/L JORGE Comment:Testing performed by : [address], [place]., [address] Chloride 104 97 - 110 mmol/L JORGE Comment:Testing performed by : [address], [place]., [address] CO2 22 22 - 32 mmol/L JORGE Comment:Testing performed by : [address], [place]., [address] Anion gap 14 2 - 15 mmol/L JORGE Comment:Testing performed by : [address] [address] BUN 23 6 - 25 mg/dL JORGE Comment:Testing performed by : [address], [place]., [address] Creatinine 1.40(H) 0.60 - 1.10 mg/dL JORGE Comment:Testing performed by : [address], [place]., [address] Glucose 111 70 - 199 mg/dL JORGE [...] was last revised 2022. Testing performed by: [address], [place]., [address] Calcium 9.3 8.5 - 10.3 mg/dL JORGE Comment:Testing performed by : [address] [address] Blood 02/03/2024 6:01 AM CDT 02/03/2024 8:28 AM CDT us Notinfile Unknown LAB BLOOD ORDERABLES Final Res ult JORGE 4500 [facility] [place] [address] * Differential, auto (02/03/2024 6:01 AM CDT) Neutrophil abs 5.6 1.5 - 6.5 K/cumm JORGE Comment:Testing performed by : [address] [address] Imm gran abs 0.1 0.0 - 0.1 K/cumm JORGE Comment:Testing performed by : [address] [address] Lymphocyte abs 2.8 0.8 - 3.3 K/cumm JORGE Comment:Testing performed by : [address] [address] Monocyte abs 0.7 0.2 - 0.8 K/cumm JORGE Comment:Testing performed by : [address] [address] Eosinophil abs 0.2 0.0 - 0.5 K/cumm JORGE Comment:Testing performed by : [address] [address] Basophil abs 0.1 0.0 - 0.1 K/cumm JORGE Comment:Testing performed by : [address] [address] Neutrophil pct 60.0 % JORGE Comment: Interpretive Data Percent cell count reference ranges are not reported, since discordance with absolute values may lead to misinterpretation of CBC data. Current Interpretive Data was last revised on 2017. Testing performed by: [address] [address] Imm gran pct 0.9 % [facility] Comment: Interpretive Data Percent cell count reference ranges are not reported, since discordance with absolute values may lead to misinterpretation of CBC data. Current Interpretive Data was last revised on 2017. Testing performed by: [address] [address] Lymphocyte pct 29.4 % [facility] Comment: Interpretive Data Percent cell count reference ranges are not reported, since discordance with absolute values may lead to misinterpretation of CBC data. Current Interpretive Data was last revised on 2017. Testing performed by: [address] [address] Monocyte pct 7.2 % [facility] Comment: Interpretive Data Percent cell count reference ranges are not reported, since discordance with absolute values may lead to misinterpretation of CBC data. Current Interpretive Data was last revised on 2017. Testing performed by: [address] [address] Eosinophil pct 1.9 % [facility] Comment: Interpretive Data Percent cell count reference ranges are not reported, since discordance with absolute values may lead to misinterpretation of CBC data. Current Interpretive Data was last revised on 2017. Testing performed by: [address] [address] Basophil pct 0.6 % [facility] Comment: Interpretive Data Percent cell count reference ranges are not reported, since discordance with absolute values may lead to misinterpretation of CBC data. Current Interpretive Data was last revised on 2017. Testing performed by: [address] [address] Blood 02/03/2024 6:01 AM CDT 02/03/2024 8:28 AM CDT us Notinfile Unknown LAB BLOOD ORDERABLES Final Res ult JORGE EDGE 115[address] [facility] [place] [address] * (ABNORMAL) CBC with auto differential (02/03/2024 6:01 AM CDT) WBC 9.3 3.8 - 9.9 K/cumm JORGE Comment:Testing performed by : [address] [address] Hgb 9.5(L) 11.9 - 15.5 g/dL JORGE Comment:Testing performed by : [address] [address] Hct 29.9(L) 35.6 - 45.5 % JORGE Comment:Testing performed by : [address] [address] Plt 426(H) 150 - 400 K/cumm JORGE Comment:Testing performed by : [address] [address] MPV 10.5 9.1 - 12.3 fL JORGE Comment:Testing performed by : [address] [address] RBC 3.20(L) 3.90 - 5.20 M/cumm JORGE Comment:Testing performed by : [address] [address] MCV 93.4 81.3 - 96.4 fL JORGE Comment:Testing performed by : [address] [address] MCH 29.7 27.1 - 33.3 pg JORGE Comment:Testing performed by : [address] [address] MCHC 31.8(L) 32.3 - 35.7 g/dL JORGE Comment:Testing performed by : [address] [address] RDW CV 14.5 11.1 - 14.9 % JORGE Comment:Testing performed by : [address] [address] RDW SD 49.1(H) 35.7 - 48.1 fL JORGE Comment:Testing performed by : [address] [address] NRBC abs 0.00 0.00 - 0.01 K/cumm JORGE Comment:Testing performed by : [facility] [address] [place] [address], [place]., [address] Blood 02/03/2024 6:01 AM CDT 02/03/2024 8:28 AM CDT us Notinfile Unknown LAB BLOOD ORDERABLES Final Res ult JORGE 26[address] [facility] [place] [address] documented in this encounter Visit Diagnoses Not [...] documented as of this encounter Care Teams Development Coach Relationship Specialty Start Date End Date Elpidio Serrato MD PCP - General Internal Medicine 06/09/18 documented as of this encounter
--- OUTSIDE RECORDS SUMMARY | 2024-04-29 21:05 | XMS_ITS | Encounter Summary ---
Author Organization [facility] Address [address] [place] [address] Phone Care Team Providers Care Single Corner Cutter Name Role Phone Elpidio Serrato MD Primary Care Provider [phone] Reason for Referral * Consultation (Routine) - Authorized Specialty Diagnoses / Procedures Referred By Contact Referred To Contact Cardiac Rehabilitation Diagnoses CAD, multiple vessel Hx of CABG Fabi Collier NP [address] [facility] [address] [place] [address] Phone: tel:[phone] fax:[phone] [place] [address] Cardiopulmonary Rehab [address] [facility] [address] [place] [address] Phone: tel: fax: Referral ID Status Reason Start Date Expiration Date Visits Requested Visits Authorized [id number] Authorized Specialty Services Required 4 2025 1 1 Question Answer Please select the performing region: External Order [171] To loc/pos [facility] Cardiopulmonary Rehab [[id number]] Select a phase: Phase 2 # of visits: 1 [facility] Encounter Details Date Type Department Care Team (Late st Contact Info) Description 02/24/2024 Orders Only [facility] Cardiology [address] [facility] 8th [place] [address] [place] [id number] Fabi Collier NP [address] [facility] [address] [place] [address] CAD, multiple vessel (Primary Dx); Congestive heart [...] on file Legal 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
--- OUTSIDE RECORDS SUMMARY | 2024-04-29 21:06 | XMS_ITS | Encounter Summary ---
Author Organization [facility] Healthcare Address [address] [place] [address] Care Team Providers Care Ticket Machine Operator Name Role Phone Elpidio Serrato MD Primary Care Provider [phone] Reason for Visit * Auth/Cert (Routine) Specialty Diagnoses / Procedures Referred By Contac t Referred To Contact Diagnoses Coronary artery disease, unspecified vessel or lesion type, unspecified whether angina present, unspecified whether [place] or transplanted heart Coronary artery disease, unspecified vessel or lesion type, unspecified whether angina present, unspecified whether [place] or transplanted heart [I25.10] Procedures LA CABG W/ARTERIAL GRAFT THREE ARTERIAL GRAFTS LA NDSC SURG W/VIDEO-ASSISTED HARVEST VEIN CABG 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 x3 OROZCO VEIN 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 Referral ID Status Reason Start Date Expiration Date Visits Re quested Visits Authorized [id number] 1 1 Encounter Details Date Type Department Care Team (Late st Contact Info) Description 01/20/2024 8:25 AM CDT Ancillary Procedure 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 Gender Identity Female 05/13/2021 4:21 PM COOLER CONVEYOR LOADER Sexual Orientation Not on file documented as of this encounter Plan of Treatment Not on file documented as of this encounter Procedures Procedure Name Priority Date/Time Associated Diagnosis Comments JULIANO ADD-ON FOR OR Routine 01/20/2024 8:2 4 AM CDT documented in this encounter Results * JULIANO Add-On For OR (01/20/2024 8:24 AM CDT) Narrative [facility] PROSOLV_CARDIOREPORT_CONS SCIMAGE - 01/20/2024 8:24 AM CDT Procedure Auto Finalized by Rule: ELENITA CV JULIANO DURING CASE OR Please see the Anesthesiologist's Procedure Note for the results. us Diogo Smith MD CV ECHO PROCEDURES Final Result [facility] PROSOLV_CARDIOREPORT_CONS SCIMAGE documented in this encounter Visit Diagnoses Not on filedocumented in this encounter Care Teams Ticket Machine Operator Relationship Specialty Start Date End Date Elpidio Serrato MD PCP - General Internal Medicine 06/09/18 documented as of this encounter
--- OUTSIDE RECORDS SUMMARY | 2024-04-29 21:06 | XMS_ITS | Encounter Summary ---
Author Organization [facility] Healthcare Address [address] [place] [address] Care Team Providers Care Scrap Iron Loader Name Role Phone Elpidio Serrato MD Primary Care Provider Reason for Visit * Auth/Cert (Routine) Specialty Diagnoses / Procedures Referred By Contac t Referred To Contact Diagnoses Coronary artery disease, unspecified vessel or lesion type, unspecified whether angina present, unspecified whether hoopa or transplanted heart Coronary artery disease, unspecified vessel or lesion type, unspecified whether angina present, unspecified whether hoopa or transplanted heart [I25.10] Procedures RI CABG W/ARTERIAL GRAFT THREE ARTERIAL GRAFTS RI NDSC SURG W/VIDEO-ASSISTED HARVEST VEIN CABG 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 x3 AGOSTO VEIN 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 Referral ID Status Reason Start Date Expiration Date Visits Re quested Visits Authorized [id number] 1 1 Encounter Details Date Type Department Care Team (Latest Contact Info) Description 01/20/2024 6:04 AM CDT - 01/28/2024 1:37 PM CDT Hospital Encounter [address] [place] [address] Stan Treviño MD [id number] [place] [address] S/P CABG x 3 (Primary Dx); 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 On pump [...] Active Problems: DM2 (diabetes mellitus, type 2) ([facility]) Obesity ABLA (acute blood loss anemia) AF (paroxysmal atrial fibrillation) ([facility]/HCC) ([facility]) Resolved Problems: Leucocytosis Thrombocytopenia ([facility]) DETAILS OF HOSPITAL STAY Presenting Problem/History of Present Illness: 73 y.o. yo female w/ PMHx of HTN, HLD< CAD, mild MR, anemia, CKD, DM type II ( Hgb A1c 5.9), hypothyroidism, and chronic knee pain. He was found to have multivessel diease on [facility] and is being seenby CTS for [...] stepdown unit in stable condition on 01/21/2024. Chesttubes were discontinued without difficulty. The Endocrinology team was consulted due to her historyof diabetes and hypothyroidism. The patient progressed as expected. Aggressive physical therapy andpulmonary toilet were initiated, diet was advanced as tolerated, and wounds remained clean, dry andintact. Her pacing wires were cut at the skin prior to transfer to the Rehab facility ([facility]) Active Issues Requiring Follow-up: Continue PT/OT at the rehab center until able to discharge to home. Will need to call for appt with Dr Treviño if not already scheduled - office number is [phone]. Operative Procedures Performed: Procedure(s): CORONARY ARTERY BYPASS [...] Your Medications These medications [facility] Portal to Registered [facility] Sites [facility] [address] empagliflozin 10 mg tablet insulin lispro 100 [...] Date pen needle, diabetic 32 gauge x /32 needle Use as directed 3 times a [...] Comment s Discharge to an Rehab facility [place], [place]) documented in this encounter Progress Notes * Christy Limon RN - 01/28/2024 12:58 PM CDT 01/22/24 1312 Discharge Summary Discharge Disposition Acute Rehab Specify Facility [facility] Facility Contact Number [phone] Bowie Discharge Records Transfer Form Completed;Chart Copied Recommended Discharge Level of Care Acute Rehab Actual Discharge Level of Care Acute Rehab Does Actual Level of Care Match Care Team Recommendation? Yes Post Acute Care Plan Post Acute Care Facility Yes Referral Status Accepted Accepted Post Acute Care Location and Contact [facility] Accepted Post Acute Care Discharge Additional Assistance [...] not assigned to this patient, please call [phone]. 01/27/24 4970 General Session Type Treatment OT Received On [...] none Interval History: Working on transfer to [facility], still with hypoglycemic events, reduced insulins again. Plan for d/c tomorrow to [facility], blood sugars should be stable at that point OBJECTIVE Current Facility-Administered Medications: acetaminophen (TYLENOL) tablet 1,000 mg, 1,000 mg, feeding tube, Q6H [facility], Cinthia Stokes PA, 1,000 mg at 01/27/24 1135 [START ON 01/31/2024] amiodarone (PACERONE) tablet 200 mg, 200 mg, oral, BID, Marisela Russell [employer] [START ON 02/03/2024] amiodarone (PACERONE) tablet 200 [...] 1 drop, left eye, BID, Eloisa Freeman, [employer], 1 drop at 01/27/24 1042 cholecalciferol (VITAMIN [...] PRN, Cinthia Stokes PA, 5 mg at 01/21/24824 senna (SENOKOT) tablet 1 tablet, 1 tablet, [...] hours: ASSESSMENT/PLAN AF (paroxysmal atrial fibrillation) (CMS/HCC) ([facility]) Assessment & Plan Short episode of AF [...] bariatric equipment DM2 (diabetes mellitus, type 2) ([facility]) Assessment & Plan - Hemoglobin A1c 5.9 [...] dc Eloisa Freeman NP 01/27/2024 Cosigned by Satn Treviño MD at 02/02/2024 8:52 AM CDT * Ashley Iverson RD - 01/27/2024 8:02 AM CDT Nutrition Screen Note Pt. Screened for nutritional assessment secondary to LOS 01/19: s/p CABG x3, Past Medical History: Diagnosis Date Actinic keratosis 07/17/2012 Age-related osteoporosis without current pathological fracture 04/29/2023 Cataract CHF (congestive heart failure) (CMS/HCC) ([facility]) Clavicle enlargement 06/16/2018 Will image to determine [...] 12/09/2017 Type 2 diabetes mellitus with hyperlipidemia ([facility]) 12/07/2016 Last A1C 5.9%, without complication Vitamin [...] has been improving since surgery. She is rqayhc63% of her meals. She is no longer drinking the Glucerna shakes. Order cancelled. Last BM 01/26. Awaiting rehab bed. Ashley Iverson RD [phone] * Eloisa Freeman NP - 01/26/2024 1:26 PM CDT Cardiac Surgery Daily Progress 01/19: s/p CABG x3 SUBJECTIVE Chief complaint: none Interval History: hypoglycemic x 2 - decreased the lantus today. Remains in NSR. Planning for TRISL at [place] OBJECTIVE Current Facility-Administered Medications: acetaminophen (TYLENOL) tablet 1,000 mg, 1,000 mg, feeding tube, Q6H [facility], Cinthia Stokes PA, 1,000 mg at 01/26/24 0434 [START ON 01/31/2024] amiodarone (PACERONE) tablet 200 mg, 200 mg, oral, BID, Marisela Russell, [employer] [START ON 02/03/2024] amiodarone (PACERONE) tablet 200 mg, 200 mg, oral, Daily, Marisela Russell, [employer] amiodarone (PACERONE) tablet 400 mg, 400 mg, oral, TID, Marisela Russell, [employer], 400 mg at 01/26/24 0827 [START ON 01/28/2024] amiodarone (PACERONE) tablet 400 mg, 400 mg, oral, BID, Marisela Russell, [employer] aspirin enteric coated tablet 81 mg, 81 [...] Yojana Macdonald NP, 1 Units at 01/24/24 1949 insulin lispro (HumaLOG, ADMELOG) 100 unit/mL injection [...] tablet, oral, BID, 1 tablet at 01/26/24 08 OR [DISCONTINUED] senna 1.76 mg/mL syrup 8.8 [...] bariatric equipment DM2 (diabetes mellitus, type 2) ([facility]) Assessment & Plan - Hemoglobin A1c 5.9 [...] insulate- plan to cut at dc Eloisa Freeamn NP 01/26/2024 Cosigned by Stan Treviño MD [...] treatment team and contact the PT or EAR NOSE AND THROAT SPECIALIST currently assigned to this patient. If a physical therapy clinician is not assigned to this patient, please call [phone]. Multi-Disciplinary Problems (from Physical Therapy) Active Problems [...] Calculation (min) 23 min * Marisela Russell [employer] - 01/25/2024 12:52 PM CDT Cardiac Surgery [...] mg, 200 mg, oral, BID, Marisela Russell, [employer] [START ON 02/03/2024] amiodarone (PACERONE) tablet 200 mg, 200 mg, oral, Daily, Marisela Russell, JAMES amiodarone (PACERONE) tablet 400 mg, 400 mg, oral, TID, Marisela Russell, [employer] [START ON 01/28/2024] amiodarone (PACERONE) tablet 400 [...] Vanita Ware NP, 8 Units at 01/25/24 123 levothyroxine (SYNTHROID) tablet 88 mcg, 88 [...] 199 mg/dL ASSESSMENT/PLAN AF (paroxysmal atrial fibrillation) ([facility]/HCC) ([facility]) Assessment & Plan Short episode of AF [...] bariatric equipment DM2 (diabetes mellitus, type 2) ([facility]) Assessment & Plan - Hemoglobin A1c 5.9 [...] 1,000 mg, 1,000 mg, feeding tube, Q6H [facility], Cinthia Stokes PA, 1,000 mg at 01/24/24 [...] caloric restriction DM2 (diabetes mellitus, type 2) ([facility]) Assessment & Plan - Hemoglobin A1c 5.9 [...] treatment team and contact the PT or EAR NOSE AND THROAT SPECIALIST currently assigned to this patient. If a physical therapy clinician is not assigned to this patient, please call [phone]. 01/24/24 1001 PT Last Visit Session Type [...] independence with functional mobility. * Nii Garces, [employer] - 01/23/2024 4:46 PM CDT Cardiac Surgery [...] Stan Treviño MD, 0.2 mg at 01/22/24 09 insulin glargine (LANTUS, SEMGLEE) 100 unit/mL injection 32 Units, 32 Units, subcutaneous, Nightly,Jennyfer Gaffney MD, 32 Units at 01/22/242111 insulin lispro (HumaLOG, ADMELOG) 100 unit/mL injection 0-10 Units, 0-10 Units, subcutaneous, TID with meals, Yojana Macdonald NP, 4 Units at 01/23/24 132 insulin lispro (HumaLOG, ADMELOG) 100 unit/mL injection [...] not assigned to this patient, please call [phone]. 01/23/24 0910 General Session Type Treatment OT [...] End Date End Date OT [facility] 01/21/24 02/04/24 -- Goal Details: Patient [...] 1,000 mg, 1,000 mg, feeding tube, Q6H [facility], Cinthia Stokes PA, 1,000 mg at 01/22/24 [...] Stan Treviño MD, 5 mg at 01/22/24 151 polyethylene glycol (MIRALAX) packet 17 g, 17 [...] 165 70 - 199 mg/dL Infection Prevention Mea auris PCR, surveillance Axilla/Groin Collection Time: 01/22/24 [...] treatment team and contact the PT or EAR NOSE AND THROAT SPECIALIST currently assigned to this patient. If a physical therapy clinician is not assigned to this patient, please call [phone]. Multi-Disciplinary Problems (from Physical Therapy) Active Problems [...] better Prior Function Prior Function Level of [place]: Independent with ADLs, Independent functional transfers, Independent [...] not assigned to this patient, please call [phone]. 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 female admitted on 01/20/2024 6:04 AM with chief complaint of CAD. PMH: CAD, PVD, CKD, HTN, HLD, T2DM (insulin dependent) Abbreviated Hospital Course: 01/19: s/p CABG x3, admitted to 8200 intubated, on dobutamine. Extubated overnight. Interval History: - Extubated to [place] ~2130 - Dobutamine continued at 2.5, per [...] a-line (01/19), R axillary a-line (01/19), RIJ [place] (01/19), PIV x2 Goals of care: Full [...] plan with the ICU team and other medical/loss control consultant staff, making frequent assessments and decisions [...] Diagnosis Date Cataract CHF (congestive heart failure) ([facility]/HCC) (HCC) Coronary artery disease Diabetes mellitus (HCC) [...] AM Result Value Ref Range Product code C4935V55 Unit Number [id number] Product Blood Type APOS Dispense Status RETURNED Product code U7215L74 Unit Number [id number] Product Blood Type APOS Dispense Status RETURNED Product code N9786S85 Unit Number [id number] Product Blood Type APOS Dispense Status RETURNED Product code I4735D45 Unit Number [id number] Product Blood Type APOS Dispense Status RETURNED [...] AM Result Value Ref Range Product code C2725M33 Unit Number [id number] Product Blood Type APOS Dispense Status RETURNED Product code X4260Z12 Unit Number [id number] Product Blood Type APOS Dispense Status RETURNED Product code D4033I91 Unit Number [id number] Product Blood Type APOS Dispense Status RETURNED Product code F6381C82 Unit Number [id number] Product Blood Type APOS Dispense Status RETURNED [...] POC 1.2 0.7 - 2.2 mmol/L SO2 (kirsty) arterial 99 (H) 90 - 95 % [...] plan with the ICU team and other medical/loss control consultant staff, making frequent assessments and decisions [...] and Planning Preoperative Evaluation Record Evaluation type/location: [facility] Planned procedure site: [facility] (Pods 2[facility]) Date: 01/17/24 Anesthesia Evaluation Isabelle Lutz is a 73 y.o. female 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 x3 AGOSTO VEIN (Chest) 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 (Thigh) Pre-Op Diagnosis Codes: * Coronary artery disease, unspecified vessel or lesion type, unspecified whether angina present, unspecified whether hoopa or transplanted heart [I25.10] HISTORY HPI 73 [...] Other + Diabetes mellitus ([employer]. Managed by software verification engineer.) - Diabetes type 2. Outpatient insulin [...] neck. Got some SOB when walking from document restorer to CPAP. Starts with SOB then the [...] neck. Got some SOB when walking from document restorer to CPAP. Starts with SOB then the [...] artery disease 12/18/2023 Coronary artery disease involving hoopa heart 12/12/2023 Encounter for preprocedural cardiovascular examination 12/12/2023 ROSE (dyspnea on exertion) 11/19/2023 Stable angina (HCC) 11/16/2023 Hyperphosphatemia 11/15/2023 Abnormal stress echocardiogram 11/15/2023 Congestive heart failure (CMS/HCC) (HCC) 11/12/2023 Age-related osteoporosis without current pathological fracture 04/29/2023 Chronic kidney disease (CKD) stage G3b/A1, moderately decreased glomerular filtration rate (GFR) between 30-44 mL/min/1.73 square meter and albuminuria creatinine ratio less than 30 mg/g ([facility]) 12/25/2021 Vitamin D deficiency 04/01/2019 Clavicle enlargement [...] 0.005 % ophthalmic solution 01/16/2024 11/11/23 -- Makalya Ramos MD INSTILL 1 DROP INTO BOTH [...] (Added by Conv) Anesthesia problems Neg Hx PAT Physical [...] No MS/ mild MR; No TR; No RI. Diastolic Function: Grade I (impaired relaxation) with nl est filling pressures.Unable to estimate PASP d/t inadequate TR jet. Stress test(s): N/A Cardiac catheterization(s): [facility] - 11/25/23 DIAGNOSTIC IMPRESSION: Severe multivessel [...] Informed consent: Risks, benefits, alternatives discussed and patient/insurance sales representative/guardian agrees and accepts. Patient's stated [...] Maneuver [x] Sutures secured immediately after removal [][place] sutures removed [] No sutures present Instruction [...] Nii Garces NP Dicussed with: [] Collaborating /Asha [x] Attending MD [] Supervising Physician [] Emergent [] Non-Applicable Informed consent: Risks, benefits, alternatives discussed and patient/insurance sales representative/guardian agrees and accepts. Patient's stated [...] [] Sutures secured immediately after removal [] [place] sutures removed [] No sutures present Instruction [...] Lutz, 73 y.o. female (: 1950) Room: [place] [address] [address] ( ) LOS: 2 Consult Question: diabetes [...] reliability: CKD, anemia Managed by PMD or Childbirth Educator Dr. Bell Hx of DKA/HHS/Hospitalizations for hypoglycemia: [...] fracture 04/29/2023 Cataract CHF (congestive heart failure) ([facility]/HCC) ([facility]) Clavicle enlargement 06/16/2018 Will image to determine etiology. Coronary artery disease Coronary artery disease due to calcified coronary lesion 01/20/2024 Diabetes mellitus (HCC) Diabetic neuropathy ([facility]) 01/21/2024 Diabetic retinopathy ([facility]) Glaucoma Hypertension Hypothyroidism 11/13/2014 Knee pain 01/04/2015 [...] & Lipid Research Contact Info: New Consults: [phone]) General Endocrine (Non-Diabetes): [phone] (Check 'Treatment Team' assignment for Diabetes 1 vs 2 vs 3) Diabetes 1: Diabetes Fellow: [phone] Diabetes 2: Vanita Ware, [employer]: [phone] Diabetes 3: See Treatment Team Provider (or [...] Lutz, 73 y.o. female (: 1950) Room: [place] [address] ( ) LOS: 1 Consult Question: diabetes [...] reliability: CKD, anemia Managed by PMD or Childbirth Educator Dr. Bell Hx of DKA/HHS/Hospitalizations for hypoglycemia: [...] Center, we will request an outpatient appointment. ([facility] Scheduling: ) All recommendations preliminary until attending attestation. Jennyfer Gaffney MD Clinical Fellow Endocrinology, Metabolism, & Lipid Research Contact Info: New Consults: [phone]) General Endocrine (Non-Diabetes): [phone] (Check 'Treatment Team' assignment for Diabetes 1 vs 2 vs 3) Diabetes 1: Diabetes Fellow: [phone] Diabetes 2: Vanita Ware, [employer]: [phone] Diabetes 3: See Treatment Team Provider (or [...] in this encounter Nursing Notes * Katharine Finney, CAPRI - 01/28/2024 1:23 PM CDT Report called to Tracy at [facility]. PIVs and tele removed. Discharge packet and education reviewed with patient and family at bedside. All questions answered. Patient ready for discharge. documented in this encounter Miscellaneous Notes * Consults, Subsequent - Vanita Ware NP - 01/28/2024 12:35 PM CDT Endocrinology & Diabetes Inpatient Subsequent Consult Note Patient: Isabelle Lutz, 73 y.o. female (: 1950) Room: [place] [address] [address] ( ) LOS: 8 Isabelle Lutz is [...] yearly or sooner as indicated by your control specialist Pending results for primary service or primary care physician to follow up on: None at time of discharge Follow Up Plan: [facility] Endocrinology Appointment date: Follow up with Dr. Bell on 03/02/24 at 11:40 AM as scheduled Location: [facility]: [address] [place] [address],[address], [place] [address] Endocrinology clinic number: [phone] -- Vanita Ware NP Endocrinology, Metabolism, & Lipid Research Contact Info: New Endocrinology Diabetes Consults: [phone] General Endocrine (Non-Diabetes): [phone] Treatment Teams: [facility] Endocrinology Diabetes 1: Fellow + Attending [facility] Endocrinology Diabetes 2: Vanita Ware NP at [phone] [facility] Endocrinology Diabetes 3: Marcia Irvin NP at [phone] [facility] Endocrinology Diabetes 4: Jacki Patel NP (/) at [phone] or Leeanne Lincoln NP (//) at [phone] Diabetes After-Hours & Weekends: Diabetes Fellow [phone] or [phone] * Plan of Care - Katharine Finney [...] planning, remain free from falls and injury [facility] Pumper Patient Centered Goal for Treatment: safe discharge to home Summary: VSS, pain management plan followed, I&Os monitored, discharge education and planning complete, pt remained free from falls and injury. * Summary of Treatment Recommendations Non-Billable - Vanita Ware [employer] - 01/28/2024 8:56 AM CDT Diabetes Service Discharge/Sign Off Recommendations Type of DM: Type 2 Diabetes Mellitus, Controlled, complicated by post op stress and steroid use Diagnosis: Coronary artery disease, unspecified vessel or lesion type, unspecified whether angina present, unspecified whether hoopa or transplanted heart [I25.10] Coronary artery disease [...] yearly or sooner as indicated by your control specialist Pending results for primary service or primary care physician to follow up on: None at time of discharge Follow Up Plan: [facility] Endocrinology Appointment date: Follow up with Dr. Bell on 03/02/24 at 11:40 AM as scheduled Location: [facility]: [address] [place] [address],[address], [place] [address] Endocrinology clinic number: [phone] * Plan of Care - Carmita Edne RN - 01/27/2024 10:23 PM CDT Goals: Clinical Goals for the Shift: hemodynamically stable, promote comfort and sleep, labs will trend toward normal values, pt will not fall [facility] Patient Centered Goal for Treatment: safe discharge [...] within normal limits Outcome: Progressing Flowsheets (Taken 01/26/2024 012) Electrolytes maintained within [...] managment, remain free from falls and injury Ham Pumper Patient Centered Goal for Treatment: safe discharge to home Summary: VSS, pain management plan followed, pt remained free from falls and injury. * Consults, Subsequent - Vanita Ware NP - 01/27/2024 12:32 PM CDT Endocrinology & Diabetes Inpatient Subsequent Consult Note Patient: Isabelle Lutz, 73 y.o. female (: 1950) Room: [place] [address] [address] ( ) LOS: 7 Isabelle Lutz is [...] Research Contact Info: New Endocrinology Diabetes Consults: [phone] General Endocrine (Non-Diabetes): [phone] Treatment Teams: [facility] Endocrinology Diabetes 1: Fellow + Attending [facility] Endocrinology Diabetes 2: Vanita Ware NP at [phone] [facility] Endocrinology Diabetes 3: Marcia Irvin NP at [phone] [facility] Endocrinology Diabetes 4: Jacki Patel NP (/) at [phone] or Leeanne Lincoln NP (//) at [phone] Diabetes After-Hours & Weekends: Diabetes Fellow [phone] or [phone] * Plan of Care - Carmita Eden RN - 01/26/2024 10:48 PM CDT Problem: Respiratory Goal: Achieves optimal ventilation and oxygenation Flowsheets (Taken 01/26/2024 1778) Achieves optimal ventilation and oxygenation: Assess for [...] Goal: Maintains hematologic stability Flowsheets (Taken 01/26/2024 2245) Maintains Hematologic Stability: Assess for signs and symptoms of bleeding or hemorrhage Monitor labs Administer supportive blood products/factors as ordered and appropriate Goals: Clinical Goals for the Shift: hemodynamically stable, promote comfort and sleep, labs will trend toward normal values, pt will not fall [facility] Patient Centered Goal for Treatment: safe discharge [...] Lutz, 73 y.o. female (: 1950) Room: [place] [address] ( ) LOS: 6 Isabelle Lutz is [...] reliability: CKD, anemia Managed by PMD or Childbirth Educator Dr. Bell Hx of DKA/HHS/Hospitalizations for hypoglycemia: [...] labs, imaging, and diagnostics independently reviewed in [facility] and commented on below. Lab Results [...] toward normal values, pt will not fall [facility] Patient Centered Goal for Treatment: safe discharge to home Problem: Skin Integrity Impairment Risk Goal: Mobility will improve Outcome: Progressing Flowsheets (Taken 01/26/2024 012) Mobility will improve: Encourage mobilization to extent [...] Lutz, 73 y.o. female (: 1950) Room: [place] [id number] ( ) LOS: 5 Isabelle Lutz is [...] reliability: CKD, anemia Managed by PMD or Childbirth Educator Dr. Bell Hx of DKA/HHS/Hospitalizations for hypoglycemia: [...] comfort and safety, monitor labs, sleep hygiene Ham Pumper Patient Centered Goal for Treatment: Return to [...] Associated Problem(s): DM2 (diabetes mellitus, type 2) ([facility]) - Hemoglobin A1c 5.9 % on admission - consistent carb diet - continue basal bolus SSI with post prandial coverage Endocrine following. Continues to have labile BS- again dropped to 73, have adjusted insulins Holding her discharge to [facility] today due to hypoglycemic episodes, plan for d/c tomorrow if bed available * Consults, Subsequent - Leeanne Lincoln NP - 01/24/2024 11:38 AM CDT Endocrinology & Diabetes Inpatient Subsequent Consult Note Patient: Isabelle Lutz, 73 y.o. female (: 1950) Room: [place] [address] ( ) LOS: 4 Isabelle Lutz is [...] Research Contact Info: New Endocrinology Diabetes Consults: [phone] General Endocrine (Non-Diabetes): [phone] Treatment Teams: [facility] Endocrinology Diabetes 1: Fellow + Attending [facility] Endocrinology Diabetes 2: Vanita Ware NP at [phone] [facility] Endocrinology Diabetes 3: Marcia Irvin NP at [phone] [facility] Endocrinology Diabetes 4: Jacki Patel NP (/) at [phone] or Leeanne Lincoln NP (//) at [phone] Diabetes After-Hours & Weekends: Diabetes Fellow [phone] or [phone] * Plan of Care - Sonia Pineda [...] control, bs management, maintain comfort and safety [facility] Patient [facility] Goal for Treatment: Return to home Summary: VSS, had multiple BMs, pain controlled with current regimen. 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 female (: 1950) Room: [id number] ( ) LOS: 3 Isabelle Lutz is [...] Research Contact Info: New Endocrinology Diabetes Consults: [phone] General Endocrine (Non-Diabetes): [phone] Treatment Teams: [facility] Endocrinology Diabetes 1: Fellow + Attending [facility] Endocrinology Diabetes 2: Vanita Ware NP at [phone] [facility] Endocrinology Diabetes 3: Marcia Irvin NP at [phone] [facility] Endocrinology Diabetes 4: Jacki Patel NP (/) at [phone] or Leeanne Lincoln NP (//) at [phone] Diabetes After-Hours & Weekends: Diabetes Fellow [phone] or [phone] * Plan of Care - Eduard Berger - 01/22/2024 5:28 PM CDT Goals: Clinical Goals for the Shift: VSS, Pain Control, Free from falls and injury, have tubes and wires removed when possible. [facility] Patient [facility] Goal for Treatment: D/c home [...] is interested in IRF - discussed choices. Cupola Tender noted patient has been recommended for Inpatient Rehab by PT/OT. Cupola Tender proactively initiated a referral to [facility] preferred Inpatient Rehab Facility - [facility]. Cupola Tender met with the patient/family at bedside to discuss recommendations by therapy and to work on a potential discharge disposition plan. Cupola Tender provided education to patient/family on the rehabilitation process. Patient reported he/she was interested in placement for rehabilitation. manager generation provided a list of additional potential Inpatient Rehab Facility choices to patient and family. Patient and family selected the following choices (preference order): [facility] location manager generation sent out additional referrals via [facility]IN. CM awaiting acceptance from an Inpatient RehabFacility and will continue to work on discharge planning with patient and family. Primary Source of Transportation: Does the patient need discharge transport arranged?: Yes (to be determined EMS vs Family) Has discharge transport been arranged?: No (01/22/241311) Health Insurance Coverage: Medicare [facility] Federal Prescription Coverage: yes Pharmacy: [facility] - LYNNE Clark - [facility] AT Portal to Registered [facility] [place] [id number] [facility]/pharmacy [address] [place] [address] [address] [address] Primary Care Provider: Elpidio Serrato MD Prior [...] Collaboration with Patient, Provider, Direct Care Nurse, Pork Cutlet Maker, and other members of theHealth Care Team to assure needed interventions completed. 2. Return patient to optimal level of self-care post discharge. 3. Cupola Tender will follow for Discharge Planning - interventions as needed 4. Anticipated level of care at discharge 5. Planned Discharge Disposition Christy Limon RN * Plan of Care - Luis Dos Santos RN - 01/22/2024 6:46 AM CDT Goals: Clinical Goals for the Shift: VSS, Pain Control, Free from falls and injury, have tubes and wires removed when possible. [facility] Patient Centered Goal for Treatment: D/c home [...] Admit Date: 01/20/2024 SURGEON Stan Treviño MD NATURAL RESOURCE TECHNICIAN Jeff Alaniz MD ANESTHESIA Diogo Smith MD [...] the ICU in stable but critical condition. Darrell, Stan Treviño, scrubbed and performed all the [...] MD - Fellow Anesthesiologist: Diogo Smith MD Human Anatomy Teacher: Chandrakant Saba MD Fibre Technologist: Gerald Guzman CCP; Jason Kapoor CCP Production Line Technician: Ben Hi Production Line Technician Relief: Glenna Lambert RN Scrub Relief: Glenna Lambert RN; Germaine Watt ST Scrub: Emmie Ware RN STITCHER UTILITY: Rachelle Rivas RN; Gloria Gannon CRNFA DATE OF SURGERY : 01/20/2024 Preoperative Diagnosis: Pre-op Diagnosis * Coronary artery disease, unspecified vessel or lesion type, unspecified whether angina present, unspecified whether hoopa or transplanted heart [I25.10] Postoperative Diagnosis: Post-op Diagnosis * Coronary artery disease, unspecified vessel or lesion type, unspecified whether angina present, unspecified whether hoopa or transplanted heart [I25.10] Procedure(s): Procedure(s) (LRB): [...] Implant Name Type Inv. Item Serial No. Manufacturer Agent Lot No. LRB No. Used Action [employer] [place] Cor Knot Pre Loaded Fastener Device Micro Titanium 0 73770 - S0 - [id number] [employer] [place] Cor Knot Pre Loaded Fastener Device Micro Titanium 0 39052 0 Original [id number] N/A 1 Implanted [employer] [place] [employer] Knot Pre Loaded Fastener Device Micro Titanium 0 20491 - S0 - [id number] [employer] [place] Cor Knot Pre Loaded Fastener Device Micro Titanium 0 35558 0 Original [id number] N/A 1 Implanted [employer] [place] Cor Knot Pre Loaded Fastener Device Micro Titanium 0 31812 - S0 - [id number] [employer] [place] Cor Knot Pre Loaded Fastener Device Micro Titanium 0 65982 0 Original [id number] N/A 1 Implanted [employer] [place] Cor Knot Pre Loaded Fastener Device Micro Titanium 0 75787 - S0 - [id number] [employer] [place] [employer] Knot Pre Loaded Fastener Device Micro Titanium 0 31403 0 Original [id number] N/A 1 Implanted ATRICURE Device Left Atrial Appendage Malleable Shaft 180 Degree Rotation White Atriclip Flex V 40mm Flexv40 [id number] - [id number] ATRICURE Device Left Atrial Appendage Malleable Shaft 180 Degree Rotation White Atriclip Flex V 40mm Flexv40 ACHV40 Atricure [id number] N/A 1 Implanted [employer] SternaLock 360 Sternal Closure 74-0004 - [id number] [employer] [id number] Sternal Closure 74-0004 [employer] [id number] N/A 1 Implanted [employer] Sternalock Hernan 2.4mm 14mm Self Drill Lock Sternum Cancellous 73-2414 - [id number] [employer] Sternalock Hernan 2.4mm 14mm Self Drill Lock Sternum Cancellous 73-2414 [employer] N/A 12 Implanted [employer] Sternalock Hernan 2.4mm 16mm Self Drill Lock Sternum Cancellous 73-2416 - [id number] [employer] Sternalock Hernan 2.4mm 16mm [...] Treviño to screen patient for inclusion into [facility] # [id number]: [facility] Trial The patient meets all inclusion and no exclusion criteria. 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) POCT [...] type, unspecified whether angina present, unspecified whether hoopa or transplanted heart ISOLATION LEFT ATRIAL APPENDAGE 01/20/2024 8:04 AM CDT Coronary artery disease, unspecified vessel or lesion type, unspecified whether angina present, unspecified whether hoopa or transplanted heart 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 01/20/2024 8:04 AM CDT Coronary artery disease, unspecified vessel or lesion type, unspecified whether angina present, unspecified whether hoopa or transplanted heart 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 01/20/2024 8:04 AM CDT Coronary artery disease, unspecified vessel or lesion type, unspecified whether angina present, unspecified whether hoopa or transplanted heart POCT GLUCOSE DEVICE Routine 01/20/2024 6 :55 AM CDT PREPARE RBC Timed 01/20/2024 6:24 AM CDT documented in this encounter Results * POCT glucose (01/28/2024 12:00 PM CDT) Glucose, POC 179 70 - 199 mg/dL Blood 01/28/2024 12:0 0 PM CDT 01/28/2024 12:00 PM CDT us Stan Treviño MD LAB POCT ORDERABLES - DEVICE Final Result Performing Organization Address [facility] Co de Phone Number [facility] [place] [address] * POCT glucose (01/28/2024 10:38 AM CDT) Glucose, POC 179 70 - 199 mg/dL Blood 01/28/2024 10:3 8 AM CDT 01/28/2024 10:38 AM CDT Stan Treviño MD LAB POCT ORDERABLES - DEVICE Final Result Performing Organization Address [facility] de Phone Number [facility] [place] [address] * POCT glucose (01/28/2024 7:52 AM CDT) Glucose, POC 106 70 - 199 mg/dL Blood 01/28/2024 7:52 AM CDT 01/28/2024 7:52 AM CDT Stan Treviño MD LAB POCT ORDERABLES - DEVICE Final Result Performing Organization Address [facility] [place] [address] * ECG 12 lead (01/28/2024 4:12 AM CDT) Ventricular Rate EKG/Min 66 BPM [facility] Atrial Rate 66 BPM [facility] RI-Interval (MSEC) 142 ms [facility] QRS-Interval (MSEC) 124 ms [facility] QT-Interval (MSEC) 470 ms [facility] QTc 492 ms [facility] P [place] 52 degrees [facility] R [place] -61 degrees [facility] T [place] 39 degrees [facility] Diagnosis Normal sinus rhythm Right bundle branch block Left anterior fascicular block Bifascicular block Possible Lateral infarct , age undetermined Abnormal ECG When compared with ECG of 27-JAN-2024 05:05, Borderline criteria for Lateral infarct are now Present Confirmed by MAHI RACHEL M.D ([id number]) on 01/28/2024 11:47:23 AM [facility] 01/28/2024 4:12 AM CDT 01/28/2024 11:47 AM CDT Marisela Russell FIRE MEDIC ECG ORDERABLES Final Res ult Performing Organization Address [facility]/ZIP Co de Phone Number [facility] * POCT glucose (01/28/2024 1:18 AM CDT) Glucose, POC 119 70 - 199 mg/dL Blood 01/28/2024 1:18 AM CDT 01/28/2024 1:18 AM CDT Stan Treviño MD LAB POCT ORDERABLES - DEVICE Final Result Performing Organization Address [facility] Co de Phone Number [facility] Department [place] [address] * (ABNORMAL) eGFR (01/27/2024 9:03 PM CDT) [...] NP LAB BLOOD ORDERABLES Final R esult [facility] Department [place] [address] * (ABNORMAL) CBC without differential (01/27/2024 9:03 PM CDT) WBC 7.6 3.8 - 9.9 K/cumm Hgb 7.9(L) 11.9 - 15.5 g/dL [facility] Hct 24.4(L) 35.6 - 45.5 % [facility] Plt 230 150 - 400 K/cumm [facility] MPV 11.0 9.1 - 12.3 fL [facility] RBC 2.69(L) 3.90 - 5.20 M/cumm [facility] MCV 90.7 81.3 - 96.4 fL [facility] MCH 29.4 27.1 - 33.3 pg [facility] MCHC 32.4 32.3 - 35.7 g/dL [facility] RDW CV 14.2 11.1 - 14.9 % [facility] RDW SD 45.8 35.7 - 48.1 fL [facility] NRBC abs 0.00 0.00 - 0.01 K/cumm [facility] Blood 01/27/2024 9:03 PM CDT 01/27/2024 9:35 PM CDT Nii Garces NP LAB BLOOD ORDERABLES Final R esult [facility] Department [place] [address] * (ABNORMAL) Basic metabolic panel (01/27/2024 9:03 PM CDT) Pathologist [facility] Sodium 138 135 - 145 mmol/L Potassium, pl 4.4 3.3 - 4.9 mmol/L [facility] Chloride 104 97 - 110 mmol/L [facility] CO2 25 22 - 32 mmol/L [facility] Anion gap 9 2 - 15 mmol/L [facility] BUN 29(H) 6 - 25 mg/dL [facility] Creatinine 1.40(H) 0.60 - 1.10 mg/dL [facility] Glucose 165 70 - 199 mg/dL [facility] Comment: Interpretive Data Fasting glucose >/= 126 [...] 2022. Calcium 8.5 8.5 - 10.3 mg/dL [facility] Blood 01/27/2024 9:03 PM CDT 01/27/2024 9:35 PM CDT Nii Garces NP LAB BLOOD ORDERABLES Final R esult [facility] [place] [address] * Phosphorus (01/27/2024 9:03 PM CDT) Pathologist [facility] Phosphorus, pl 3.6 2.3 - 4.5 mg/dL Blood 01/27/2024 9:03 PM CDT 01/27/2024 9:35 PM CDT Nii Garces NP LAB BLOOD ORDERABLES Final R esult Performing Organization Address City/[facility]/[place] [address] * Magnesium (01/27/2024 9:03 PM CDT) [facility] Magnesium 2.0 1.4 - 2.5 mg/dL Blood 01/27/2024 9:03 PM CDT 01/27/2024 9:35 PM CDT Nii Garces NP LAB BLOOD ORDERABLES Final R esult Performing Organization Address [facility] Co de Phone Number [facility] [place] [address] * (ABNORMAL) POCT glucose (01/27/2024 7:33 PM CDT) [facility] Glucose, POC 226(H) 70 - 199 mg/dL Blood 01/27/2024 7:33 PM CDT 01/27/2024 7:33 PM CDT us Stan Treviño MD LAB POCT ORDERABLES - DEVICE Final Result [facility] [place] [address] * POCT glucose (01/27/2024 4:55 PM CDT) Glucose, POC 163 70 - 199 mg/dL Blood 01/27/2024 4:55 PM CDT 01/27/2024 4:55 PM CDT us Stan Treviño MD LAB POCT ORDERABLES - DEVICE Final Result Performing Organization Address [facility] Co de Phone Number [facility] [place] [address] * POCT glucose (01/27/2024 11:20 AM CDT) Glucose, POC 127 70 - 199 mg/dL Blood 01/27/2024 11:2 0 AM CDT 01/27/2024 11:20 AM CDT Stan Treviño MD LAB POCT ORDERABLES - DEVICE Final Result Performing Organization Address [facility] Co de Phone Number [facility] [place] [address] * POCT glucose (01/27/2024 8:51 AM CDT) Glucose, POC 106 70 - 199 mg/dL Blood 01/27/2024 8:51 AM CDT 01/27/2024 8:51 AM CDT Stan Treviño MD LAB POCT ORDERABLES - DEVICE Final Result Performing Organization Address City/[facility] Co de Phone Number [facility] [place] [address] * POCT glucose (01/27/2024 7:29 AM CDT) Glucose, POC 107 70 - 199 mg/dL Blood 01/27/2024 7:29 AM CDT 01/27/2024 7:29 AM CDT Stan Treviño MD LAB POCT ORDERABLES - DEVICE Final Result Performing Organization Address [facility] Co de Phone Number [facility] Department [place] [address] * ECG 12 lead (01/27/2024 5:05 AM CDT) Ventricular Rate EKG/Min 80 BPM [facility] Atrial Rate 80 BPM [facility] RI-Interval (MSEC) 136 ms [facility] QRS-Interval (MSEC) 122 ms [facility] QT-Interval (MSEC) 426 ms [facility] QTc 491 ms [facility] P [place] 55 degrees [facility] R [place] -63 degrees [facility] T [place] 38 degrees [facility] Diagnosis Normal sinus rhythm with sinus arrhythmia Right bundle branch block Left anterior fascicular block Bifascicular block Abnormal ECG When compared with ECG of 26-JAN-2024 02:54, (unconfirmed) Premature ventricular complexes are no longer Present Confirmed by MAHI RACHEL M.D ([id number]) on 01/27/2024 12:23:55 PM [facility] 01/27/2024 5:05 AM CDT 01/27/2024 12:23 PM CDT Marisela Russell FI[employer] ECG ORDERABLES Final Res ult Performing Organization Address [facility] Co de Phone Number [facility] * POCT glucose (01/27/2024 3:13 AM CDT) Glucose, POC 123 70 - 199 mg/dL Blood 01/27/2024 3:13 AM CDT 01/27/2024 3:13 AM CDT Stan Treviño MD LAB POCT ORDERABLES - DEVICE Final Result Performing Organization Address City/[facility]/ZIP Co de Phone Number [facility] [place] [address] * POCT glucose (01/27/2024 2:14 AM CDT) Glucose, POC 119 70 - 199 mg/dL Blood 01/27/2024 2:14 AM CDT 01/27/2024 2:14 AM CDT Stan Treviño MD LAB POCT ORDERABLES - DEVICE Final Result Performing Organization Address [facility] [place] [address] * POCT glucose (01/27/2024 1:39 AM CDT) Glucose, POC 92 70 - 199 mg/dL Blood 01/27/2024 1:39 AM CDT 01/27/2024 1:39 AM CDT Stan Treviño MD LAB POCT ORDERABLES - DEVICE Final Result Performing Organization Address [facility] [place] [address] * POCT glucose (01/27/2024 1:19 AM CDT) Glucose, POC 73 70 - 199 mg/dL Blood 01/27/2024 1:19 AM CDT 01/27/2024 1:19 AM CDT Stan Treviño MD LAB POCT ORDERABLES - DEVICE Final Result Performing Organization Address [facility] [place] [address] * (ABNORMAL) POCT glucose (01/27/2024 1:00 AM CDT) Glucose, POC 58(L) 70 - 199 mg/dL Blood 01/27/2024 1:00 AM CDT 01/27/2024 1:00 AM CDT us Stan Treviño MD LAB POCT ORDERABLES - DEVICE Final Result [facility] Department [place] [address] * (ABNORMAL) eGFR (01/26/2024 9:20 PM CDT) [...] CDT 01/26/2024 9:49 PM CDT us Nii Ray Palmejar FI[employer] LAB BLOOD ORDERABLES Final R esult Performing Organization Address City/[facility]/ZIP Co de Phone Number [facility] Department [place] [address] * Type and screen (01/26/2024 9:20 PM CDT) Pathologist [facility] ABO Rh A Positive Sergio, indirect Negative [facility] Blood 01/26/2024 9:20 PM CDT 01/26/2024 9:55 PM CDT Narrative [facility] - 01/26/2024 10:57 PM CDT Has the patient had Daratumumab or Isatuximab in the past 6 months?->Unknown Eloisa Freeman [employer] LAB BLOOD BANK TEST ORDERABLES F inal Result Performing Organization Address [facility] Co de Phone Number [facility] Department [place] [address] * (ABNORMAL) CBC without differential (01/26/2024 9:20 PM CDT) [facility] WBC 8.2 3.8 - 9.9 K/cumm Hgb 8.0(L) 11.9 - 15.5 g/dL [facility] Hct 24.6(L) 35.6 - 45.5 % [facility] Plt 211 150 - 400 K/cumm [facility] MPV 11.0 9.1 - 12.3 fL [facility] RBC 2.73(L) 3.90 - 5.20 M/cumm [facility] MCV 90.1 81.3 - 96.4 fL [facility] MCH 29.3 27.1 - 33.3 pg [facility] MCHC 32.5 32.3 - 35.7 g/dL [facility] RDW CV 13.9 11.1 - 14.9 % [facility] RDW SD 45.2 35.7 - 48.1 fL [facility] NRBC abs 0.00 0.00 - 0.01 K/cumm [facility] Blood 01/26/2024 9:20 PM CDT 01/26/2024 9:49 PM CDT Nii Garces NP LAB BLOOD ORDERABLES Final R esult [facility] Department [place] [address] * (ABNORMAL) Basic metabolic panel (01/26/2024 9:20 PM CDT) [facility] Sodium 140 135 - 145 mmol/L Potassium, pl 4.6 3.3 - 4.9 mmol/L [facility] Chloride 105 97 - 110 mmol/L [facility] CO2 24 22 - 32 mmol/L [facility] Anion gap 11 2 - 15 mmol/L [facility] BUN 33(H) 6 - 25 mg/dL [facility] Creatinine 1.34(H) 0.60 - 1.10 mg/dL [facility] Glucose 138 70 - 199 mg/dL [facility] Comment: Interpretive Data Fasting glucose >/= 126 [...] 2022. Calcium 8.5 8.5 - 10.3 mg/dL [facility] Blood 01/26/2024 9:20 PM CDT 01/26/2024 9:49 PM CDT us Nii Garces NP LAB BLOOD ORDERABLES Final R esult Performing Organization Address City/[facility]/ZIP Co de Phone Number [facility] Department [place] [address] * Phosphorus (01/26/2024 9:20 PM CDT) Phosphorus, pl 3.5 2.3 - 4.5 mg/dL Blood 01/26/2024 9:20 PM CDT 01/26/2024 9:49 PM CDT Nii Garces NP LAB BLOOD ORDERABLES Final R esult Performing Organization Address City/[facility] Co de Phone Number [facility] [place] [address] * Magnesium (01/26/2024 9:20 PM CDT) Magnesium 1.9 1.4 - 2.5 mg/dL Blood 01/26/2024 9:20 PM CDT 01/26/2024 9:49 PM CDT us Nii Garces NP LAB BLOOD ORDERABLES Final R esult Performing Organization Address [facility] Co de Phone Number [facility] [place] [address] * (ABNORMAL) POCT glucose (01/26/2024 7:51 PM CDT) Glucose, POC 201(H) 70 - 199 mg/dL Blood 01/26/2024 7:51 PM CDT 01/26/2024 7:51 PM CDT us Stan Treviño MD LAB POCT ORDERABLES - DEVICE Final Result Performing Organization Address City/[facility] Co de Phone Number [facility] [place] [address] * (ABNORMAL) POCT glucose (01/26/2024 6:48 PM CDT) Glucose, POC 234(H) 70 - 199 mg/dL Blood 01/26/2024 6:48 PM CDT 01/26/2024 6:48 PM CDT Stan Treviño MD LAB POCT ORDERABLES - DEVICE Final Result Performing Organization Address [facility] de Phone Number [facility] [place] [address] * POCT glucose (01/26/2024 5:42 PM CDT) Glucose, POC 95 70 - 199 mg/dL Blood 01/26/2024 5:42 PM CDT 01/26/2024 5:42 PM CDT Stan Treviño MD LAB POCT ORDERABLES - DEVICE Final Result Performing Organization Address [facility] de Phone Number [facility] [place] [address] * (ABNORMAL) POCT glucose (01/26/2024 5:21 PM CDT) Glucose, POC 65(L) 70 - 199 mg/dL Blood 01/26/2024 5:21 PM CDT 01/26/2024 5:21 PM CDT Stan Treviño MD LAB POCT ORDERABLES - DEVICE Final Result Performing Organization Address [facility] [place] [address] * Infection Prevention Ema auris PCR, surveillance Axilla/Groin (01/26/2024 3:28 PM CDT) [facility] Ema auris DNA Not Detected Not Detected [facility] Comment: Interpretive Data Testing performed by [facility] using the D[employer]Answer[employer] Liaison MDX Ema auris assay. ??This assay detects DNA from Ema auris using Real-Time PCR. ??This assay is laboratory developed and is not cleared by the [facility] Food and Drug Administration. ??The performance characteristics have been verified by the [facility]. Interpretive data was last reviewed on 09/04/2023 Axilla/Groin 01/26/2024 3:28 PM CDT 01/26/2024 4:31 PM CDT Jean Paul Platt MD LAB MICROBIOLOGY - GENERAL OR DERABLES Final Result Performing Organization Address City/[facility] Co de Phone Number [facility] [place] [address] [facility] * POCT glucose (01/26/2024 12:02 PM CDT) Glucose, POC 150 70 - 199 mg/dL Blood 01/26/2024 12:0 2 PM CDT 01/26/2024 12:02 PM CDT Stan Treviño MD LAB POCT ORDERABLES - DEVICE Final Result Performing Organization Address [facility] Co de Phone Number [facility] [place] [address] * POCT glucose (01/26/2024 8:18 AM CDT) Glucose, POC 94 70 - 199 mg/dL Blood 01/26/2024 8:18 AM CDT 01/26/2024 8:18 AM CDT Stan Treviño MD LAB POCT ORDERABLES - DEVICE Final Result Performing Organization Address [facility] Co de Phone Number [facility] [place] [address] * POCT glucose (01/26/2024 6:38 AM CDT) Glucose, POC 111 70 - 199 mg/dL Blood 01/26/2024 6:38 AM CDT 01/26/2024 6:38 AM CDT us Stan Treviño MD LAB POCT ORDERABLES - DEVICE Final Result Performing Organization Address [facility] de Phone Number [facility] [place] [address] * POCT glucose (01/26/2024 5:01 AM CDT) Glucose, POC 107 70 - 199 mg/dL Blood 01/26/2024 5:01 AM CDT 01/26/2024 5:01 AM CDT Stan Treviño MD LAB POCT ORDERABLES - DEVICE Final Result Performing Organization Address [facility] de Phone Number [facility] [place] [address] * (ABNORMAL) POCT glucose (01/26/2024 4:31 AM CDT) Pathologist [facility] Glucose, POC 64(L) 70 - 199 mg/dL Blood 01/26/2024 4:31 AM CDT 01/26/2024 4:31 AM CDT Stan Treviño MD LAB POCT ORDERABLES - DEVICE Final Result Performing Organization Address [facility] [place] [address] * ECG 12 lead (01/26/2024 2:54 AM CDT) Ventricular Rate EKG/Min 74 BPM [facility] Atrial Rate 74 BPM [facility] RI-Interval (MSEC) 140 ms [facility] QRS-Interval (MSEC) 124 ms [facility] QT-Interval (MSEC) 444 ms [facility] QTc 492 ms [facility] P [place] 50 degrees [facility] R [place] -57 degrees [facility] T [place] 27 degrees [facility] Diagnosis Sinus rhythm with frequent Premature ventricular complexes Right bundle branch block Left anterior fascicular block Bifascicular block Possible Lateral infarct (cited on or before 25-JAN-2024) Abnormal ECG When compared with ECG of 25-JAN-2024 13:07, (unconfirmed) Premature ventricular complexes are now Present Confirmed by MAHI RACHEL M.D ([id number]) on 01/27/2024 12:50:01 PM [facility] 01/26/2024 2:5 4 AM CDT 01/27/2024 12:50 PM CDT us Marisela Russell [employer] ECG ORDERABLES Final Res ult [facility] * POCT glucose (01/26/2024 2:43 AM CDT) Glucose, POC 83 70 - 199 mg/dL Blood 01/26/2024 2:43 AM CDT 01/26/2024 2:43 AM CDT us Stan Treviño MD LAB POCT ORDERABLES - DEVICE Final Result [facility] Department [place] [address] * (ABNORMAL) eGFR (01/25/2024 9:40 PM CDT) [...] NP LAB BLOOD ORDERABLES Final R esult [facility] Department of Laboratories [place], [place] [id number] * (ABNORMAL) CBC without differential (01/25/2024 9:40 PM CDT) WBC 8.6 3.8 - 9.9 K/cumm Hgb 8.5(L) 11.9 - 15.5 g/dL [facility] Hct 26.8(L) 35.6 - 45.5 % [facility] Plt 210 150 - 400 K/cumm [facility] MPV 11.3 9.1 - 12.3 fL [facility] RBC 2.95(L) 3.90 - 5.20 M/cumm [facility] MCV 90.8 81.3 - 96.4 fL [facility] MCH 28.8 27.1 - 33.3 pg [facility] MCHC 31.7(L) 32.3 - 35.7 g/dL [facility] RDW CV 13.8 11.1 - 14.9 % [facility] RDW SD 45.3 35.7 - 48.1 fL [facility] NRBC abs 0.00 0.00 - 0.01 K/cumm [facility] Blood 01/25/2024 9:40 PM CDT 01/25/2024 10:45 PM CDT Nii Garces NP LAB BLOOD ORDERABLES Final R esult [facility] Department [place] [address] * (ABNORMAL) Basic metabolic panel (01/25/2024 9:40 PM CDT) Sodium 141 135 - 145 mmol/L Potassium, pl 3.6 3.3 - 4.9 mmol/L [facility] Chloride 105 97 - 110 mmol/L [facility] CO2 26 22 - 32 mmol/L [facility] Anion gap 10 2 - 15 mmol/L [facility] BUN 36(H) 6 - 25 mg/dL [facility] Creatinine 1.30(H) 0.60 - 1.10 mg/dL [facility] Glucose 131 70 - 199 mg/dL [facility] Comment: Interpretive Data Fasting glucose >/= 126 [...] 2022. Calcium 8.6 8.5 - 10.3 mg/dL [facility] Blood 01/25/2024 9:40 PM CDT 01/25/2024 10:45 PM CDT Nii Garces NP LAB BLOOD ORDERABLES Final R esult Performing Organization Address City/[facility]/ZIP Co de Phone Number [facility] [place] [address] * Phosphorus (01/25/2024 9:40 PM CDT) Phosphorus, pl 4.2 2.3 - 4.5 mg/dL Blood 01/25/2024 9:40 PM CDT 01/25/2024 10:45 PM CDT Nii Garces NP LAB BLOOD ORDERABLES Final R esult Performing Organization Address [facility] Co de Phone Number [facility] [place] [address] * Magnesium (01/25/2024 9:40 PM CDT) Magnesium 2.1 1.4 - 2.5 mg/dL Blood 01/25/2024 9:40 PM CDT 01/25/2024 10:45 PM CDT Nii Garces NP LAB BLOOD ORDERABLES Final R esult Performing Organization Address [facility] Co de Phone Number [facility] [place] [address] * POCT glucose (01/25/2024 9:39 PM CDT) Glucose, POC 146 70 - 199 mg/dL Blood 01/25/2024 9:39 PM CDT 01/25/2024 9:39 PM CDT us Stan Treviño MD LAB POCT ORDERABLES - DEVICE Final Result Performing Organization Address City/[facility]/ZIP Co de Phone Number [facility] [place] [address] * POCT glucose (01/25/2024 6:40 PM CDT) Glucose, POC 197 70 - 199 mg/dL Blood 01/25/2024 6:40 PM CDT 01/25/2024 6:40 PM CDT Stan Treviño MD LAB POCT ORDERABLES - DEVICE Final Result Performing Organization Address City/[facility] Co de Phone Number [facility] [place] [address] * POCT glucose (01/25/2024 5:32 PM CDT) Glucose, POC 111 70 - 199 mg/dL Blood 01/25/2024 5:32 PM CDT 01/25/2024 5:32 PM CDT Stan Treviño MD LAB POCT ORDERABLES - DEVICE Final Result Performing Organization Address [facility] de Phone Number [facility] [place] [address] * POCT glucose (01/25/2024 5:16 PM CDT) Glucose, POC 72 70 - 199 mg/dL Blood 01/25/2024 5:16 PM CDT 01/25/2024 5:16 PM CDT Stan Treviño MD LAB POCT ORDERABLES - DEVICE Final Result Performing Organization Address [facility] [place] [address] * (ABNORMAL) POCT glucose (01/25/2024 5:00 PM CDT) Glucose, POC 61(L) 70 - 199 mg/dL Blood 01/25/2024 5:00 PM CDT 01/25/2024 5:00 PM CDT us Stan Treviño MD LAB POCT ORDERABLES - DEVICE Final Result Performing Organization Address [facility]/ZIP Co de Phone Number [facility] Department [place] [address] * ECG 12 lead (01/25/2024 1:07 PM CDT) Pathologist [facility] Ventricular Rate EKG/Min 74 BPM [facility] Atrial Rate 74 BPM [facility] RI-Interval (MSEC) 122 ms [facility] QRS-Interval (MSEC) 126 ms [facility] QT-Interval (MSEC) 442 ms [facility] QTc 490 ms [facility] P [place] 55 degrees [facility] R [place] -53 degrees [facility] T [place] 27 degrees [facility] Diagnosis Normal sinus rhythm Right bundle branch block Left anterior fascicular block Bifascicular block Possible Lateral infarct , age undetermined Abnormal ECG Confirmed by Anu CLARK, [facility] ([id number]) on 01/27/2024 2:47:59 PM [facility] 01/25/2024 1:07 PM CDT 01/27/2024 2:47 PM CDT Marisela Russell NP ECG ORDERABLES Final Res ult Performing Organization Address [facility] Co de Phone Number [facility] * XR Chest Pa Lateral 2 Views [...] signed by: Robert Fiore M.D. Marisela Russell [employer] IMG XR PROCEDURES Final R esult * (ABNORMAL) POCT glucose (01/25/2024 11:10 AM CDT) Glucose, POC 221(H) 70 - 199 mg/dL Blood 01/25/2024 11:1 0 AM CDT 01/25/2024 11:10 AM CDT Stan Treviño MD LAB POCT ORDERABLES - DEVICE Final Result Performing Organization Address [facility] Co de Phone Number [facility] [place] [address] * POCT glucose (01/25/2024 8:28 AM CDT) Glucose, POC 124 70 - 199 mg/dL Blood 01/25/2024 8:28 AM CDT 01/25/2024 8:28 AM CDT Stan Treviño MD LAB POCT ORDERABLES - DEVICE Final Result Performing Organization Address [facility] Co de Phone Number [facility] [place] [address] * POCT glucose (01/25/2024 2:02 AM CDT) Glucose, POC 109 70 - 199 mg/dL Blood 01/25/2024 2:02 AM CDT 01/25/2024 2:02 AM CDT Stan Treviño MD LAB POCT ORDERABLES - DEVICE Final Result [facility] Department [place] [address] * (ABNORMAL) eGFR (01/24/2024 8:13 PM CDT) [...] ORDERABLES Final R esult Performing Organization Address City/[facility]/ZIP Co de Phone Number J[facility] Department [place] [address] * (ABNORMAL) CBC without differential (01/24/2024 8:13 PM CDT) Pathologist [facility] WBC 8.6 3.8 - 9.9 K/cumm Hgb 8.5(L) 11.9 - 15.5 g/dL [facility] Hct 27.3(L) 35.6 - 45.5 % [facility] Plt 169 150 - 400 K/cumm [facility] MPV 11.1 9.1 - 12.3 fL [facility] RBC 2.96(L) 3.90 - 5.20 M/cumm [facility] MCV 92.2 81.3 - 96.4 fL [facility] MCH 28.7 27.1 - 33.3 pg [facility] MCHC 31.1(L) 32.3 - 35.7 g/dL [facility] RDW CV 13.9 11.1 - 14.9 % [facility] RDW SD 46.5 35.7 - 48.1 fL [facility] NRBC abs 0.00 0.00 - 0.01 K/cumm [facility] Blood 01/24/2024 8:13 PM CDT 01/24/2024 8:53 PM CDT us Nii Garces NP LAB BLOOD ORDERABLES Final [facility] Department [place] [address] * (ABNORMAL) Basic metabolic panel (01/24/2024 8:13 PM CDT) Pathologist [facility] Sodium 143 135 - 145 mmol/L Potassium, pl 4.0 3.3 - 4.9 mmol/L [facility] Chloride 108 97 - 110 mmol/L [facility] CO2 23 22 - 32 mmol/L [facility] Anion gap 12 2 - 15 mmol/L [facility] BUN 33(H) 6 - 25 mg/dL [facility] Creatinine 1.06 0.60 - 1.10 mg/dL [facility] Glucose 140 70 - 199 mg/dL [facility] Comment: Interpretive Data Fasting glucose >/= 126 [...] 2022. Calcium 8.2(L) 8.5 - 10.3 mg/dL [facility] Blood 01/24/2024 8:13 PM CDT 01/24/2024 8:52 PM CDT Nii Garces NP LAB BLOOD ORDERABLES Final R esult Performing Organization Address City/[facility]/ZIP Co de Phone Number [facility] [place] [address] * Phosphorus (01/24/2024 8:13 PM CDT) Pathologist [facility] Phosphorus, pl 3.1 2.3 - 4.5 mg/dL Blood 01/24/2024 8:13 PM CDT 01/24/2024 8:52 PM CDT Nii Garces NP LAB BLOOD ORDERABLES Final R esult Performing Organization Address City/[facility]/ZIP Co de Phone Number [facility] [place] [address] * Magnesium (01/24/2024 8:13 PM CDT) Magnesium 2.0 1.4 - 2.5 mg/dL Blood 01/24/2024 8:13 PM CDT 01/24/2024 8:52 PM CDT Nii Garces NP LAB BLOOD ORDERABLES Final R esult Performing Organization Address [facility] Co de Phone Number [facility] [place] [address] * POCT glucose (01/24/2024 7:27 PM CDT) Glucose, POC 161 70 - 199 mg/dL Blood 01/24/2024 7:27 PM CDT 01/24/2024 7:27 PM CDT Stan Treviño MD LAB POCT ORDERABLES - DEVICE Final Result Performing Organization Address [facility] Co de Phone Number [facility] [place] [address] * POCT glucose (01/24/2024 4:26 PM CDT) Glucose, POC 97 70 - 199 mg/dL Blood 01/24/2024 4:26 PM CDT 01/24/2024 4:26 PM CDT Stan Treviño MD LAB POCT ORDERABLES - DEVICE Final Result Performing Organization Address [facility] de Phone Number [facility] [place] [address] * XR Chest 1 View - in [...] LAB POCT ORDERABLES - DEVICE Final Result [facility] [place] [address] * POCT glucose (01/24/2024 7:32 AM CDT) Glucose, POC 143 70 - 199 mg/dL Blood 01/24/2024 7:32 AM CDT 01/24/2024 7:32 AM CDT Stan Treviño MD LAB POCT ORDERABLES - DEVICE Final Result Performing Organization Address [facility] de [place] [address] * POCT glucose (01/24/2024 1:43 AM CDT) Glucose, POC 194 70 - 199 mg/dL Blood 01/24/2024 1:43 AM CDT 01/24/2024 1:43 AM CDT Stan Treviño MD LAB POCT ORDERABLES - DEVICE Final Result Performing Organization Address [facility] [place] [address] * (ABNORMAL) eGFR (01/23/2024 10:31 PM CDT) [...] NP LAB BLOOD ORDERABLES Final R esult [facility] Department [place] [address] * (ABNORMAL) CBC without differential (01/23/2024 10:31 PM CDT) WBC 7.2 3.8 - 9.9 K/cumm Hgb 8.4(L) 11.9 - 15.5 g/dL [facility] Hct 25.8(L) 35.6 - 45.5 % [facility] Plt 155 150 - 400 K/cumm [facility] MPV 11.5 9.1 - 12.3 fL [facility] RBC 2.84(L) 3.90 - 5.20 M/cumm [facility] MCV 90.8 81.3 - 96.4 fL [facility] MCH 29.6 27.1 - 33.3 pg [facility] MCHC 32.6 32.3 - 35.7 g/dL [facility] RDW CV 13.9 11.1 - 14.9 % [facility] RDW SD 46.9 35.7 - 48.1 fL [facility] NRBC abs 0.00 0.00 - 0.01 K/cumm [facility] Blood 01/23/2024 10:3 1 PM CDT 01/23/2024 10:59 PM CDT us Nii Garces NP LAB BLOOD ORDERABLES Final R esult [facility] Department [place] [address] * (ABNORMAL) Basic metabolic panel (01/23/2024 10:31 PM CDT) [facility] Sodium 139 135 - 145 mmol/L Potassium, pl 4.4 3.3 - 4.9 mmol/L [facility] Chloride 106 97 - 110 mmol/L [facility] CO2 22 22 - 32 mmol/L [facility] Anion gap 11 2 - 15 mmol/L [facility] BUN 43(H) 6 - 25 mg/dL [facility] Creatinine 1.28(H) 0.60 - 1.10 mg/dL [facility] Glucose 242(H) 70 - 199 mg/dL [facility] Comment: Interpretive Data Fasting glucose >/= 126 [...] 2022. Calcium 8.3(L) 8.5 - 10.3 mg/dL [facility] Blood 01/23/2024 10:3 1 PM CDT 01/23/2024 11:08 PM CDT us Nii Garces NP LAB BLOOD ORDERABLES Final R esult Performing Organization Address City/[facility]/ZIP Co de Phone Number [facility] [place] [address] * Phosphorus (01/23/2024 10:31 PM CDT) Phosphorus, pl 2.6 2.3 - 4.5 mg/dL Blood 01/23/2024 10:3 1 PM CDT 01/23/2024 11:08 PM CDT Nii Garces NP LAB BLOOD [place] [address] * Magnesium (01/23/2024 10:31 PM CDT) Pathologist [facility] Magnesium 2.2 1.4 - 2.5 mg/dL Blood 01/23/2024 10:3 1 PM CDT 01/23/2024 11:08 PM CDT Nii Garces NP LAB BLOOD ORDERABLES Final R esult Performing Organization Address [facility] [place] [address] * Type and screen (01/23/2024 10:31 PM CDT) Pathologist [facility] ABO Rh A Positive Sergio, indirect Negative [facility] Blood 01/23/2024 10:3 1 PM CDT 01/23/2024 11:07 PM CDT Narrative [facility] - 01/24/2024 12:04 AM CDT Has the patient had Daratumumab or Isatuximab in the past 6 months?->Unknown us Stan Treviño MD LAB BLOOD BANK TEST [place] [address] * (ABNORMAL) POCT glucose (01/23/2024 7:57 PM CDT) Glucose, POC 272(H) 70 - 199 mg/dL Blood 01/23/2024 7:57 PM CDT 01/23/2024 7:57 PM CDT Stan Treviño MD LAB POCT ORDERABLES - DEVICE Final Result [facility] Department [place] [address] * XR Chest 1 View - in [...] Electronically signed by: Guanakito Reed M.D. Cinthia Sharif Lewisdeb PA IMG XR PROCEDURES Phyllis l Result [...] signed by: Guanakito Reed M.D. Nii Garces [employer] IMG XR PROCEDURES Final Resu lt * POCT glucose (01/23/2024 5:59 PM CDT) Glucose, POC 142 70 - 199 mg/dL Blood 01/23/2024 5:59 PM CDT 01/23/2024 5:59 PM CDT Stan Treviño MD LAB POCT ORDERABLES - DEVICE Final Result Performing Organization Address [facility] de Phone Number [facility] Department [place] [address] * POCT glucose (01/23/2024 5:36 PM CDT) Glucose, POC 97 70 - 199 mg/dL Blood 01/23/2024 5:36 PM CDT 01/23/2024 5:36 PM CDT Stan Treviño MD LAB POCT ORDERABLES - DEVICE Final Result Performing Organization Address [facility] Phone Number [facility] Department [place] [address] * (ABNORMAL) POCT glucose (01/23/2024 5:09 PM CDT) Glucose, POC 56(L) 70 - 199 mg/dL Blood 01/23/2024 5:09 PM CDT 01/23/2024 5:09 PM CDT Stan Treviño MD LAB POCT ORDERABLES - DEVICE Final Result Performing Organization Address [facility] [place] [address] * (ABNORMAL) POCT glucose (01/23/2024 11:34 AM CDT) Glucose, POC 217(H) 70 - 199 mg/dL Blood 01/23/2024 11:3 4 AM CDT 01/23/2024 11:34 AM CDT us Stan Treviño MD LAB POCT ORDERABLES - DEVICE Final Result Performing Organization Address City/[facility] [place] [address] * POCT glucose (01/23/2024 7:39 AM CDT) [facility] Signature Glucose, POC 152 70 - 199 mg/dL Blood 01/23/2024 7:39 AM CDT 01/23/2024 7:39 AM CDT us Stan Treviño MD LAB POCT ORDERABLES - DEVICE Final Result Performing Organization Address City/[facility] [place] [address] * POCT glucose (01/23/2024 2:16 AM CDT) [facility] Signature Glucose, POC 141 70 - 199 mg/dL Blood 01/23/2024 2:16 AM CDT 01/23/2024 2:16 AM CDT us Stan Treviño MD LAB POCT ORDERABLES - DEVICE Final Result Performing Organization Address City/[facility] [place] [address] * POCT glucose (01/22/2024 11:19 PM CDT) Glucose, POC 183 70 - 199 mg/dL Blood 01/22/2024 11:1 9 PM CDT 01/22/2024 11:19 PM CDT us Stan Treviño MD LAB POCT ORDERABLES - DEVICE Final Result [facility] Department [place] [address] * (ABNORMAL) eGFR (01/22/2024 10:21 PM CDT) eGFR 39(L) >=60 mL/min/1. 73 [...] CDT 01/22/2024 10:41 PM CDT us Nii Ray Palmejar [employer] LAB BLOOD ORDERABLES Final R esult [facility] [place] [address] * (ABNORMAL) CBC without differential (01/22/2024 10:21 PM CDT) Pathologist [facility] WBC 11.2(H) 3.8 - 9.9 K/cumm Hgb 8.7(L) 11.9 - 15.5 g/dL [facility] Hct 26.9(L) 35.6 - 45.5 % [facility] Plt 136(L) 150 - 400 K/cumm [facility] MPV 11.6 9.1 - 12.3 fL [facility] RBC 2.96(L) 3.90 - 5.20 M/cumm [facility] MCV 90.9 81.3 - 96.4 fL [facility] MCH 29.4 27.1 - 33.3 pg [facility] MCHC 32.3 32.3 - 35.7 g/dL [facility] RDW CV 14.3 11.1 - 14.9 % [facility] RDW SD 47.3 35.7 - 48.1 fL [facility] NRBC abs 0.00 0.00 - 0.01 K/cumm [facility] Blood 01/22/2024 10:2 1 PM CDT 01/22/2024 10:40 PM CDT Nii Garces NP LAB BLOOD ORDERABLES Final R esult [facility] [place] [address] * (ABNORMAL) Basic metabolic panel (01/22/2024 10:21 PM CDT) Pathologist [facility] Sodium 139 135 - 145 mmol/L Potassium, pl 4.4 3.3 - 4.9 mmol/L [facility] Chloride 106 97 - 110 mmol/L [facility] CO2 23 22 - 32 mmol/L [facility] Anion gap 10 2 - 15 mmol/L [facility] BUN 43(H) 6 - 25 mg/dL [facility] Creatinine 1.41(H) 0.60 - 1.10 mg/dL [facility] Glucose 195 70 - 199 mg/dL [facility] Comment: Interpretive Data Fasting glucose >/= 126 [...] 2022. Calcium 8.6 8.5 - 10.3 mg/dL [facility] Blood 01/22/2024 10:2 1 PM CDT 01/22/2024 10:41 PM CDT Nii Garces NP LAB BLOOD ORDERABLES Final R esult [facility] [place] [address] * (ABNORMAL) Phosphorus (01/22/2024 10:21 PM CDT) Pathologist [facility] Phosphorus, pl 2.2(L) 2.3 - 4.5 mg/dL Blood 01/22/2024 10:2 1 PM CDT 01/22/2024 10:41 PM CDT Nii Garces NP LAB BLOOD ORDERABLES Final R esult [facility] Department [place] [address] * Magnesium (01/22/2024 10:21 PM CDT) Magnesium 2.4 1.4 - 2.5 mg/dL Blood 01/22/2024 10:2 1 PM CDT 01/22/2024 10:41 PM CDT Nii Garces NP LAB BLOOD ORDERABLES Final R esult Performing Organization Address [facility] Co de Phone Number [facility] Department [place] [address] * POCT glucose (01/22/2024 8:38 PM CDT) Glucose, POC 188 70 - 199 mg/dL Blood 01/22/2024 8:38 PM CDT 01/22/2024 8:38 PM CDT Stan Treviño MD LAB POCT ORDERABLES - DEVICE Final Result Performing Organization Address [facility] de Phone Number [facility] Department [place] [address] * XR Chest 1 View - in [...] it. Electronically signed by: Erica Mustafa M.D. Cinthia BATISTA IMG XR PROCEDURES Phyllis l Result * POCT glucose (01/22/2024 4:35 PM CDT) [facility] Signature Glucose, POC 94 70 - 199 mg/dL Blood 01/22/2024 4:35 PM CDT 01/22/2024 4:35 PM CDT Stan Treviño MD LAB POCT ORDERABLES - DEVICE Final Result [facility] Department [place] [address] * XR Chest 1 View (01/22/2024 2:43 [...] by: Erica Mustafa M.D. us Nii Garces [employer] IMG XR PROCEDURES Final Resu lt * POCT glucose (01/22/2024 12:03 PM CDT) [facility] Signature Glucose, POC 196 70 - 199 mg/dL Blood 01/22/2024 12:0 3 PM CDT 01/22/2024 12:03 PM CDT us Stan Treviño MD LAB POCT ORDERABLES - DEVICE Final Result [facility] Department [place] [address] * POCT glucose (01/22/2024 7:29 AM CDT) Glucose, POC 161 70 - 199 mg/dL Blood 01/22/2024 7:29 AM CDT 01/22/2024 7:29 AM CDT us Stan Treviño MD LAB POCT ORDERABLES - DEVICE Final Result J[facility] Department [place] [address] * (ABNORMAL) eGFR (01/22/2024 5:58 AM CDT) [...] 01/22/2024 6:26 AM CDT us Bri Lindo [employer] LAB BLOOD ORDERABLES Final Result Performing Organization Address [facility] Co de Phone Number [facility] [place] [address] * Phosphorus (01/22/2024 5:58 AM CDT) Pathologist [facility] Phosphorus, pl 2.8 2.3 - 4.5 mg/dL Blood 01/22/2024 5:58 AM CDT 01/22/2024 6:26 AM CDT us Bri Lindo [employer] LAB BLOOD ORDERABLES Final Result Performing Organization Address [facility] Co de Phone Number [facility] [place] [address] * Magnesium (01/22/2024 5:58 AM CDT) [facility] Magnesium 2.3 1.4 - 2.5 mg/dL Blood 01/22/2024 5:58 AM CDT 01/22/2024 6:26 AM CDT us Bri Lindo [employer] LAB BLOOD ORDERABLES Final Result Performing Organization Address [facility] de Phone Number [facility] [place] [address] * (ABNORMAL) Basic metabolic panel (01/22/2024 5:58 AM CDT) Pathologist [facility] Sodium 139 135 - 145 mmol/L Potassium, pl 4.5 3.3 - 4.9 mmol/L [facility] Chloride 106 97 - 110 mmol/L [facility] CO2 25 22 - 32 mmol/L [facility] Anion gap 8 2 - 15 mmol/L [facility] BUN 40(H) 6 - 25 mg/dL [facility] Creatinine 1.53(H) 0.60 - 1.10 mg/dL [facility] Glucose 162 70 - 199 mg/dL [facility] Comment: Interpretive Data Fasting glucose >/= 126 [...] 2022. Calcium 8.9 8.5 - 10.3 mg/dL [facility] Blood 01/22/2024 5:58 AM CDT 01/22/2024 6:26 AM CDT Bri Lindo NP LAB BLOOD ORDERABLES Final Result [facility] Department [place] [address] * (ABNORMAL) CBC without differential (01/22/2024 5:58 AM CDT) WBC 14.0(H) 3.8 - 9.9 K/cumm Hgb 8.7(L) 11.9 - 15.5 g/dL [facility] Hct 26.9(L) 35.6 - 45.5 % [facility] Plt 134(L) 150 - 400 K/cumm [facility] MPV 11.9 9.1 - 12.3 fL [facility] RBC 2.88(L) 3.90 - 5.20 M/cumm [facility] MCV 93.4 81.3 - 96.4 fL [facility] MCH 30.2 27.1 - 33.3 pg [facility] MCHC 32.3 32.3 - 35.7 g/dL [facility] RDW CV 14.1 11.1 - 14.9 % [facility] RDW SD 48.2(H) 35.7 - 48.1 fL [facility] NRBC abs 0.00 0.00 - 0.01 K/cumm [facility] Blood 01/22/2024 5:58 AM CDT 01/22/2024 6:26 AM CDT Bri Lindo [employer] LAB BLOOD ORDERABLES Final Result Performing Organization Address [facility] de Phone Number [facility] [place] [address] * Infection Prevention Ema auris PCR, surveillance Axilla/Groin (01/22/2024 5:55 AM CDT) Pathologist [facility] Ema auris DNA Not Detected Not Detected [facility] Comment: Interpretive Data Testing performed by [facility] using the [employer] MDX Ema auris assay. ??This assay detects DNA from Ema auris using Real-Time PCR. ??This assay is laboratory developed and is not cleared by the [facility] Food and Drug Administration. ??The performance characteristics have been verified by the [facility]. Interpretive data was last reviewed on 09/04/2023 Axilla/Groin 01/22/2024 5:55 AM CDT 01/22/2024 6:35 AM CDT Jean Paul Platt MD LAB MICROBIOLOGY - GENERAL OR DERABLES Final Result Performing Organization Address [facility] de Phone Number [facility] [place] [address] [facility] * POCT glucose (01/22/2024 2:42 AM CDT) Pathologist [facility] Glucose, POC 165 70 - 199 mg/dL Blood 01/22/2024 2:42 AM CDT 01/22/2024 2:42 AM CDT Stan Treviño MD LAB POCT ORDERABLES - DEVICE Final Result [facility] [place] [address] * POCT glucose (01/22/2024 12:53 AM CDT) Glucose, POC 167 70 - 199 mg/dL Blood 01/22/2024 12:5 3 AM CDT 01/22/2024 12:53 AM CDT Stan Treviño MD LAB POCT ORDERABLES - DEVICE Final Result Performing Organization Address [facility] Co de Phone Number J[facility]GE [facility] Department [place] [address] * XR Chest 1 View - in [...] silhouette is unchanged. Electronically signed by: Pool Snaz M.D. Narrative 01/22/2024 11:02 AM CDT EXAMINATION: [...] - DEVICE Final Result Performing Organization Address City/[facility] Co de Phone Number [facility] Department [place] [address] * (ABNORMAL) POCT glucose (01/21/2024 5:08 PM CDT) Glucose, POC 259(H) 70 - 199 mg/dL Blood 01/21/2024 5:08 PM CDT 01/21/2024 5:08 PM CDT Stan Treviño MD LAB POCT ORDERABLES - DEVICE Final Result Performing Organization Address City/State/[facility] Co de Phone Number [facility] Department [place] [address] * (ABNORMAL) POCT glucose (01/21/2024 11:42 AM CDT) Glucose, POC 228(H) 70 - 199 mg/dL Blood 01/21/2024 11:4 2 AM CDT 01/21/2024 11:42 AM CDT Stan Treviño MD LAB POCT ORDERABLES - DEVICE Final Result Performing Organization Address [facility]/ZIP Co de Phone Number JORGE [facility] Department [place] [address] * ECG 12 lead (01/21/2024 11:01 AM CDT) Ventricular Rate EKG/Min 98 BPM [facility] Atrial Rate 98 BPM [facility] RI-Interval (MSEC) 122 ms [facility] QRS-Interval (MSEC) 118 ms [facility] QT-Interval (MSEC) 388 ms [facility] QTc 495 ms [facility] P [place] 61 degrees [facility] R [place] -51 degrees [facility] T [place] 13 degrees [facility] Diagnosis Normal sinus rhythm with sinus arrhythmia Incomplete right bundle branch block Left anterior fascicular block Prolonged QT Possible Right ventricular hypertrophy When compared with ECG of 20-JAN-2024 17:04, (unconfirmed) ST no longer depressed in Lateral leads Confirmed by JEAN PAUL BUSTOS M.D ([id number]) on 01/22/2024 9:02:17 AM [facility] 01/21/2024 11:0 1 AM CDT 01/22/2024 9:02 AM CDT Cinthia BATISTA ECG ORDERABLES Final Result Performing Organization Address [facility] Co de Phone Number [facility] * POCT glucose (01/21/2024 8:56 AM CDT) Glucose, POC 192 70 - 199 mg/dL Blood 01/21/2024 8:56 AM CDT 01/21/2024 8:56 AM CDT Stan Treviño MD LAB POCT ORDERABLES - DEVICE Final Result Performing Organization Address City/[facility]/ZIP Co de Phone Number [facility] Department [place] [address] * Critical Care (01/21/2024 6:00 AM CDT) [...] plan with the ICU team and other medical/loss control consultant staff, making frequent assessments and decisions [...] * POCT glucose (01/21/2024 3:56 AM CDT) [facility] Signature Glucose, POC 178 70 - 199 mg/dL Blood 01/21/2024 3:56 AM CDT 01/21/2024 3:56 AM CDT us Stan Treviño MD LAB POCT ORDERABLES - DEVICE Final Result [facility] Department [place] [address] * eGFR (01/21/2024 12:55 AM CDT) eGFR [...] LAB BLOOD ORDERABLES F inal Result J[facility]GE [facility] Department [place] [address] * Phosphorus (01/21/2024 12:55 AM CDT) Phosphorus, pl 4.1 2.3 - 4.5 mg/dL Comment:Repeated and Verifie d Blood 01/21/2024 12:5 5 AM CDT 01/21/2024 1:14 AM CDT Cinthia BATISTA LAB BLOOD ORDERABLES F inal Result Performing Organization Address City/[facility] Co de Phone Number [facility] [place] [address] * Magnesium (01/21/2024 12:55 AM CDT) [facility] Magnesium 2.3 1.4 - 2.5 mg/dL Blood 01/21/2024 12:5 5 AM CDT 01/21/2024 1:14 AM CDT Cinthia BATISTA LAB BLOOD ORDERABLES F inal Result Performing Organization Address [facility] de Phone Number [facility] [place] [address] * (ABNORMAL) Basic metabolic panel (01/21/2024 12:55 AM CDT) [facility] Sodium 146(H) 135 - 145 mmol/L Potassium, pl 4.8 3.3 - 4.9 mmol/L [facility] Chloride 114(H) 97 - 110 mmol/L [facility] CO2 21(L) 22 - 32 mmol/L [facility] Anion gap 11 2 - 15 mmol/L [facility] BUN 28(H) 6 - 25 mg/dL [facility] Creatinine 0.99 0.60 - 1.10 mg/dL [facility] Glucose 193 70 - 199 mg/dL [facility] Comment: Interpretive Data Fasting glucose >/= 126 [...] 2022. Calcium 8.8 8.5 - 10.3 mg/dL [facility] Blood 01/21/2024 12:5 5 AM CDT 01/21/2024 1:14 AM CDT Cinthia BATISTA LAB BLOOD ORDERABLES F inal Result Performing Organization Address City/[facility]/ZIP Co de Phone Number [facility] Department [place] [address] * (ABNORMAL) CBC without differential (01/21/2024 12:55 AM CDT) WBC 8.9 3.8 - 9.9 K/cumm Hgb 8.6(L) 11.9 - 15.5 g/dL [facility] Hct 26.4(L) 35.6 - 45.5 % [facility] Plt 132(L) 150 - 400 K/cumm [facility] MPV 11.0 9.1 - 12.3 fL [facility] RBC 2.88(L) 3.90 - 5.20 M/cumm [facility] MCV 91.7 81.3 - 96.4 fL [facility] MCH 29.9 27.1 - 33.3 pg [facility] MCHC 32.6 32.3 - 35.7 g/dL [facility] RDW CV 13.3 11.1 - 14.9 % [facility] RDW SD 44.6 35.7 - 48.1 fL [facility] NRBC abs 0.00 0.00 - 0.01 K/cumm [facility] Blood 01/21/2024 12:5 5 AM CDT 01/21/2024 1:14 AM CDT Cinthia BATISTA LAB BLOOD ORDERABLES F inal Result Performing Organization Address City/[facility]/ZIP Co de Phone Number [facility] Department [place] [address] * XR Chest 1 View - in [...] * POCT glucose (01/20/2024 8:35 PM CDT) Glucose, POC 121 70 - 199 mg/dL Blood 01/20/2024 8:35 PM CDT 01/20/2024 8:35 PM CDT us Stan Treviño MD LAB POCT ORDERABLES - DEVICE Final Result [facility] Department [place] [address] * XR Chest 1 View (01/20/2024 7:10 [...] plan with the ICU team and other medical/loss control consultant staff, making frequent assessments and decisions [...] * POCT glucose (01/20/2024 6:06 PM CDT) [facility] Glucose, POC 106 70 - 199 mg/dL Blood 01/20/2024 6:06 PM CDT 01/20/2024 6:06 PM CDT Stan Treviño MD LAB POCT ORDERABLES - DEVICE Final Result CERNER [facility] Department [place] [address] * ECG 12 lead (01/20/2024 5:04 PM CDT) [facility] Ventricular Rate EKG/Min 94 BPM [facility] Atrial Rate 94 BPM [facility] RI-Interval (MSEC) 140 ms [facility] QRS-Interval (MSEC) 122 ms [facility] QT-Interval (MSEC) 412 ms [facility] QTc 515 ms [facility] P [place] 73 degrees [facility] R [place] -61 degrees [facility] T [place] 38 degrees [facility] Diagnosis Normal sinus rhythm Right bundle branch block Left anterior fascicular block Bifascicular block Abnormal ECG Confirmed by Anu CLARK [facility] ([id number]) on 01/22/2024 12:20:57 AM [facility] 01/20/2024 5:04 PM CDT 01/22/2024 12:20 AM CDT Stan Treviño MD ECG ORDERABLES Final Result [facility] * Triglycerides (01/20/2024 4:52 PM CDT) Triglycerides [...] ORDERABLES Final Re sult Performing Organization Address [facility]/ZIP Co de Phone Number [facility] Department [place] [address] * eGFR (01/20/2024 4:52 PM CDT) [facility] eGFR 64 >=60 mL/min/1. 73 m2 Comment: [...] ORDERABLES F inal Result Performing Organization Address City/[facility]/ZIP Co de Phone Number [facility] Department [place] [address] * aPTT (01/20/2024 4:52 PM CDT) Pathologist [facility] aPTT 29 28 - 38 sec Comment: Interpretive Data Heparin therapeutic range: 66.0 - 100.0 seconds. Range based on correlation with therapeutic heparin activity range of 0.3 - 0.7 Units/mL. Current interpretive data was last revised on 2023. Blood 01/20/2024 4:52 PM CDT 01/20/2024 5:25 PM CDT Stan Treviño MD LAB BLOOD ORDERABLES Final Re sult Performing Organization Address [facility] de Phone Number [facility] [place] [address] * (ABNORMAL) Protime-INR (01/20/2024 4:52 PM CDT) [facility] PT 13.3(H) 9.7 - 13.0 sec INR 1.23(H) 0.90 - 1.20 [facility] Comment: Interpretive data Oral anticoagulant therapeutic ranges: Venous thromboembolism prophylaxis or treatment: 2.0-3.0 CARDIOLOGY Standard range: 2.0-3.0 High-intensity range: 2.5-3.5 Refer to indication-specific guidelines for appropriate target ranges for prosthetic heart valve replacement. Current interpretive data was last revised on 2019. Blood 01/20/2024 4:52 PM CDT 01/20/2024 5:25 PM CDT Stan Treviño MD LAB BLOOD ORDERABLES Final Re sult Performing Organization Address City/[facility] Co de Phone Number [facility] [place] [address] * (ABNORMAL) CBC without differential (01/20/2024 4:52 PM CDT) Pathologist [facility] WBC 8.7 3.8 - 9.9 K/cumm Hgb 8.7(L) 11.9 - 15.5 g/dL [facility] Hct 26.5(L) 35.6 - 45.5 % [facility] Plt 143(L) 150 - 400 K/cumm [facility] MPV 11.1 9.1 - 12.3 fL [facility] RBC 2.98(L) 3.90 - 5.20 M/cumm [facility] MCV 88.9 81.3 - 96.4 fL [facility] MCH 29.2 27.1 - 33.3 pg [facility] MCHC 32.8 32.3 - 35.7 g/dL [facility] RDW CV 13.2 11.1 - 14.9 % [facility] RDW SD 42.7 35.7 - 48.1 fL [facility] NRBC abs 0.00 0.00 - 0.01 K/cumm [facility] Blood 01/20/2024 4:52 PM CDT 01/20/2024 5:14 PM CDT Stan Treviño MD LAB BLOOD ORDERABLES Final Re sult [facility] Department [place] [address] * (ABNORMAL) Magnesium (01/20/2024 4:52 PM CDT) Pathologist [facility] Magnesium 2.7(H) 1.4 - 2.5 mg/dL Blood 01/20/2024 4:52 PM CDT 01/20/2024 5:20 PM CDT us Cinthia BATISTA LAB BLOOD ORDERABLES F inal Result [facility] [place] [address] * (ABNORMAL) Basic metabolic panel (01/20/2024 4:52 PM CDT) Sodium 147(H) 135 - 145 mmol/L Potassium, pl 3.8 3.3 - 4.9 mmol/L [facility] Chloride 114(H) 97 - 110 mmol/L [facility] CO2 23 22 - 32 mmol/L [facility] Anion gap 10 2 - 15 mmol/L [facility] BUN 28(H) 6 - 25 mg/dL [facility] Creatinine 0.94 0.60 - 1.10 mg/dL [facility] Glucose 107 70 - 199 mg/dL [facility] Comment: Interpretive Data Fasting glucose >/= 126 [...] 2022. Calcium 9.2 8.5 - 10.3 mg/dL [facility] Blood 01/20/2024 4:52 PM CDT 01/20/2024 5:20 PM CDT Cinthia BATISTA LAB BLOOD ORDERABLES F inal Result Performing Organization Address City/[facility]/ZIP Co de Phone Number [facility] Department [place] [address] * (ABNORMAL) Phosphorus (01/20/2024 4:52 PM CDT) Pathologist [facility] Phosphorus, pl 1.8(L) 2.3 - 4.5 mg/dL Blood 01/20/2024 4:52 PM CDT 01/20/2024 5:20 PM CDT Cinthia BATISTA LAB BLOOD ORDERABLES F inal Result [facility] Department [place] [address] * Critical Care (01/20/2024 4:47 PM CDT) [...] plan with the ICU team and other medical/loss control consultant staff, making frequent assessments and decisions [...] Chemistries, Arterial - (01/20/2024 4:43 PM CDT) [facility] pH, Art POC 7.40 7.35 - 7.45 pCO2, Art POC 33(L) 35 - 45 mmHg [facility] pO2, Art POC 116(H) 83 - 108 mmHg [facility] Na, POC 145 135 - 145 mmol/L [facility] K POC 3.6 3.3 - 4.9 mmol/L [facility] Comment: Interpretive Data Not all point of care methods assess for hemolysis. Confirm with instrument and retest K+ if not consistent with clinical signs and symptoms. Current Interpretive Data was last revised on 2023. Cl, POC 118(H) 97 - 110 mmol/L [facility] Ionized Ca, POC 5.08 4.50 - 5.10 mg/dL [facility] Glucose, POC 104 70 - 199 mg/dL [facility] Lactate, POC 1.0 0.7 - 2.2 mmol/L [facility] SO2 (kristy) arterial 100(H) 90 - 95 % [facility] Base excess, POC -3.8 mmol/L [facility] HCO3, Art POC 20 20 - 30 mmol/L [facility] Hct, POC 27.0(L) 36.3 - 45.3 % [facility] Total Hb, POC 9.1(L) 11.9 - 15.5 g/dL [facility] Blood 01/20/2024 4:43 PM CDT 01/20/2024 4:43 PM CDT Stan Treviño MD LAB POCT ORDERABLES - DEVICE Final Result [facility] Department [place] [address] * XR Chest 1 View (01/20/2024 3:15 [...] Hematocrit POC 24.5(L) 35.6 - 45.5 % [facility] Platelet POC 122(L) 150 - 400 K/cumm [facility] Blood 01/20/2024 2:56 PM CDT 01/20/2024 2:56 PM CDT us tSan Treviño MD LAB POCT ORDERABLES - DEVICE Final Result Performing Organization Address City/[facility]/ZIP Co de Phone Number [facility] Department [place] [address] * (ABNORMAL) POC Blood Gas and Chemistries, Arterial - (01/20/2024 2:17 PM CDT) pH, Art POC 7.36 7.35 - 7.45 pCO2, Art POC 37 35 - 45 mmHg [facility] pO2, Art POC 282(H) 83 - 108 mmHg [facility] Na, POC 145 135 - 145 mmol/L [facility] K POC 4.0 3.3 - 4.9 mmol/L [facility] Comment: Interpretive Data Not all point of care methods assess for hemolysis. Confirm with instrument and retest K+ if not consistent with clinical signs and symptoms. Current Interpretive Data was last revised on 2023. Cl, POC 117(H) 97 - 110 mmol/L [facility] Ionized Ca, POC 5.75(H) 4.50 - 5.10 mg/dL [facility] Glucose, POC 164 70 - 199 mg/dL [facility] Lactate, POC 1.4 0.7 - 2.2 mmol/L [facility] SO2 (kristy) arterial 100(H) 90 - 95 % [facility] Base excess, POC -4.2 mmol/L [facility] HCO3, Art POC 22 20 - 30 mmol/L [facility] Hct, POC 18.0(L) 36.3 - 45.3 % [facility] Total Hb, POC 6.0(L) 11.9 - 15.5 g/dL [facility] Blood 01/20/2024 2:17 PM CDT 01/20/2024 2:17 PM CDT Stan Treviño MD LAB POCT ORDERABLES - DEVICE Final Result [facility] Department [place] [address] * (ABNORMAL) POCT prothrombin time (01/20/2024 2:16 PM CDT) PT, POC 29.6(H) 11.7 - 16.6 sec INR, POC 2.3(H) 0.9 - 1.3 [facility] Blood 01/20/2024 2:16 PM CDT 01/20/2024 2:16 PM CDT Stan Treviño MD LAB POCT ORDERABLES - DEVICE Final Result Performing Organization Address [facility] de Phone Number [facility] Department [place] [address] * (ABNORMAL) POCT Partial thromboplastin time (PTT) (01/20/2024 2:15 PM CDT) [facility] APTT, POC 22.2(L) 32.5 - 46.1 sec Blood 01/20/2024 2:15 PM CDT 01/20/2024 2:15 PM CDT Stan Treviño MD LAB POCT ORDERABLES - DEVICE Final Result Performing Organization Address [facility] de Phone Number [facility] [place] [address] * (ABNORMAL) POCT hemoglobin, hematocrit and platelet count (01/20/2024 2:13 PM CDT) Hgb, POC 8.0(L) 11.9 - 15.5 g/dL Hematocrit POC 24.1(L) 35.6 - 45.5 % [facility] Platelet POC 102(L) 150 - 400 K/cumm [facility] Blood 01/20/2024 2:13 PM CDT 01/20/2024 2:13 PM CDT Stan Treviño MD LAB POCT ORDERABLES - DEVICE Final Result Performing Organization Address City/[facility]/ZIP Co de Phone Number [facility] [place] [address] * POCT heparin/ACT CPB (01/20/2024 2:11 PM CDT) [facility] Signature Heparin POC 0.0 units/mL ACT, CPB 112 112 - 174 sec [facility] Blood 01/20/2024 2:11 PM CDT 01/20/2024 2:11 PM CDT Stan Treviño MD LAB POCT ORDERABLES - DEVICE Final Result Performing Organization Address [facility] [place] [address] * (ABNORMAL) POCT heparin/ACT CPB (01/20/2024 1:45 PM CDT) [facility] Heparin POC >4.7 units/mL ACT, CPB 603(H) 112 - 174 sec [facility] Blood 01/20/2024 1:45 PM CDT 01/22/2024 8:07 AM CDT Stan Treviño MD LAB POCT ORDERABLES - DEVICE Final Result Performing Organization Address [facility] Co de Phone Number [facility] [place] [address] * (ABNORMAL) POC Blood Gas and Chemistries, Arterial - (01/20/2024 1:44 PM CDT) [facility] Signature pH, Art POC 7.41 7.35 - 7.45 pCO2, Art POC 34(L) 35 - 45 mmHg [facility] pO2, Art POC 249(H) 83 - 108 mmHg [facility] Na, POC 144 135 - 145 mmol/L [facility] K POC 4.6 3.3 - 4.9 mmol/L [facility] Comment: Interpretive Data Not all point of care methods assess for hemolysis. Confirm with instrument and retest K+ if not consistent with clinical signs and symptoms. Current Interpretive Data was last revised on 2023. Cl, POC 116(H) 97 - 110 mmol/L [facility] Ionized Ca, POC 4.58 4.50 - 5.10 mg/dL [facility] Glucose, POC 169 70 - 199 mg/dL [facility] Lactate, POC 1.4 0.7 - 2.2 mmol/L [facility] SO2 (kristy) arterial 99(H) 90 - 95 % [facility] Base excess, POC -2.7 mmol/L [facility] HCO3, Art POC 22 20 - 30 mmol/L [facility] Hct, POC 24.0(L) 36.3 - 45.3 % [facility] Total Hb, POC 7.9(L) 11.9 - 15.5 g/dL [facility] Blood 01/20/2024 1:44 PM CDT 01/20/2024 1:44 PM CDT Stan Treviño MD LAB POCT ORDERABLES - DEVICE Final Result Performing Organization Address City/[facility]/ZIP Co de Phone Number [facility] Department [place] [address] * (ABNORMAL) POCT heparin/ACT CPB (01/20/2024 1:16 PM CDT) Heparin POC >4.7 units/mL ACT, CPB 603(H) 112 - 174 sec [facility] Blood 01/20/2024 1:16 PM CDT 01/22/2024 8:07 AM CDT Stan Treviño MD LAB POCT ORDERABLES - DEVICE Final Result [facility] Department [place] [address] * (ABNORMAL) POC Blood Gas and Chemistries, Arterial - (01/20/2024 1:15 PM CDT) pH, Art POC 7.40 7.35 - 7.45 pCO2, Art POC 31(L) 35 - 45 mmHg [facility] pO2, Art POC 207(H) 83 - 108 mmHg [facility] Na, POC 143 135 - 145 mmol/L [facility]ERNER [facility] K POC 4.7 3.3 - 4.9 mmol/L [facility] Comment: Interpretive Data Not all point of care methods assess for hemolysis. Confirm with instrument and retest K+ if not consistent with clinical signs and symptoms. Current Interpretive Data was last revised on 2023. Cl, POC 116(H) 97 - 110 mmol/L [facility] Ionized Ca, POC 4.68 4.50 - 5.10 mg/dL CERNER [facility] Glucose, POC 184 70 - 199 mg/dL CERNER [facility] Lactate, POC 1.3 0.7 - 2.2 mmol/L [facility] SO2 (kristy) arterial 99(H) 90 - 95 % [facility]ERNER [facility] Base excess, POC -4.9 mmol/L CERNER [facility] HCO3, Art POC 19(L) 20 - 30 mmol/L [facility] Hct, POC 25.0(L) 36.3 - 45.3 % [facility] Total Hb, POC 8.4(L) 11.9 - 15.5 g/dL [facility] Blood 01/20/2024 1:15 PM CDT 01/20/2024 1:15 PM CDT Stan Treviño MD LAB POCT ORDERABLES - DEVICE Final Result [facility] Department [place] [address] * (ABNORMAL) POC Blood Gas and Chemistries, Arterial - (01/20/2024 12:50 PM CDT) pH, Art POC 7.29(L) 7.35 - 7.45 pCO2, Art POC 43 35 - 45 mmHg [facility] pO2, Art POC 232(H) 83 - 108 mmHg [facility]ERNER [facility] Na, POC 143 135 - 145 mmol/L [facility] K POC 4.5 3.3 - 4.9 mmol/L [facility] Comment: Interpretive Data Not all point of care methods assess for hemolysis. Confirm with instrument and retest K+ if not consistent with clinical signs and symptoms. Current Interpretive Data was last revised on 2023. Cl, POC 115(H) 97 - 110 mmol/L [facility] Ionized Ca, POC 4.80 4.50 - 5.10 mg/dL [facility] Glucose, POC 183 70 - 199 mg/dL CERNER [facility] Lactate, POC 1.2 0.7 - 2.2 mmol/L [facility] SO2 (kristy) arterial 99(H) 90 - 95 % [facility] Base excess, POC -5.5 mmol/L [facility] HCO3, Art POC 21 20 - 30 mmol/L [facility] Hct, POC 26.0(L) 36.3 - 45.3 % [facility] Total Hb, POC 8.5(L) 11.9 - 15.5 g/dL [facility] Blood 01/20/2024 12:5 0 PM CDT 01/20/2024 12:50 PM CDT Stan Treviño MD LAB POCT ORDERABLES - DEVICE Final Result Performing Organization Address [facility]/ZIP Co de Phone Number [facility] Department [place] [address] * (ABNORMAL) POCT heparin/ACT CPB (01/20/2024 12:48 PM CDT) Heparin POC 2.7 units/mL ACT, CPB 718(H) 112 - 174 sec [facility] Blood 01/20/2024 12:4 8 PM CDT 01/20/2024 12:48 PM CDT Stan Treviño MD LAB POCT ORDERABLES - DEVICE Final Result Performing Organization Address City/[facility]/ZIP Co de Phone Number [facility] Department [place] [address] * (ABNORMAL) POCT heparin/ACT CPB (01/20/2024 12:16 PM CDT) Heparin POC 4.1 units/mL ACT, CPB 559(H) 112 - 174 sec [facility] Blood 01/20/2024 12:1 6 PM CDT 01/20/2024 12:16 PM CDT us Stan Treviño MD LAB POCT ORDERABLES - DEVICE Final Result [facility] Department [place] [address] * (ABNORMAL) POC Blood Gas and Chemistries, Arterial - (01/20/2024 12:16 PM CDT) pH, Art POC 7.34(L) 7.35 - 7.45 pCO2, Art POC 40 35 - 45 mmHg [facility] pO2, Art POC 252(H) 83 - 108 mmHg [facility] Na, POC 143 135 - 145 mmol/L [facility] K POC 4.4 3.3 - 4.9 mmol/L [facility] Comment: Interpretive Data Not all point of care methods assess for hemolysis. Confirm with instrument and retest K+ if not consistent with clinical signs and symptoms. Current Interpretive Data was last revised on 2023. Cl, POC 114(H) 97 - 110 mmol/L [facility] Ionized Ca, POC 4.52 4.50 - 5.10 mg/dL [facility] Glucose, POC 199 70 - 199 mg/dL [facility] Lactate, POC 0.9 0.7 - 2.2 mmol/L [facility] SO2 (kristy) arterial 100(H) 90 - 95 % [facility] Base excess, POC -3.9 mmol/L [facility] HCO3, Art POC 22 20 - 30 mmol/L [facility] Hct, POC 26.0(L) 36.3 - 45.3 % [facility] Total Hb, POC 8.5(L) 11.9 - 15.5 g/dL [facility] Blood 01/20/2024 12:1 6 PM CDT 01/20/2024 12:16 PM CDT Stan Treviño MD LAB POCT ORDERABLES - DEVICE Final Result Performing Organization Address City/[facility] Co de Phone Number [facility] [place] [address] * (ABNORMAL) POCT heparin/ACT CPB (01/20/2024 11:47 AM CDT) Heparin POC >4.7 units/mL ACT, CPB 733(H) 112 - 174 sec [facility] Blood 01/20/2024 11:4 7 AM CDT 01/22/2024 8:07 AM CDT Stan Treviño MD LAB POCT ORDERABLES - DEVICE Final Result Performing Organization Address [facility] [place] [address] * (ABNORMAL) POC Blood Gas and Chemistries, Arterial - (01/20/2024 11:46 AM CDT) pH, Art POC 7.28(L) 7.35 - 7.45 pCO2, Art POC 35 35 - 45 mmHg [facility] pO2, Art POC 310(H) 83 - 108 mmHg [facility] Na, POC 142 135 - 145 mmol/L [facility] K POC 4.4 3.3 - 4.9 mmol/L [facility] Comment: Interpretive Data Not all point of care methods assess for hemolysis. Confirm with instrument and retest K+ if not consistent with clinical signs and symptoms. Current Interpretive Data was last revised on 2023. Cl, POC 111(H) 97 - 110 mmol/L [facility] Ionized Ca, POC 4.06(L) 4.50 - 5.10 mg/dL [facility] Glucose, POC 183 70 - 199 mg/dL [facility] Lactate, POC 0.8 0.7 - 2.2 mmol/L [facility] SO2 (kristy) arterial 100(H) 90 - 95 % [facility] Base excess, POC -9.5 mmol/L [facility] HCO3, Art POC 18(L) 20 - 30 mmol/L [facility] Hct, POC 26.0(L) 36.3 - 45.3 % [facility] Total Hb, POC 8.8(L) 11.9 - 15.5 g/dL [facility] Blood 01/20/2024 11:4 6 AM CDT 01/20/2024 11:46 AM CDT Stan Treviño MD LAB POCT ORDERABLES - DEVICE Final Result Performing Organization Address [facility] Co de Phone Number [facility] Department [place] [address] * (ABNORMAL) POCT heparin/ACT CPB (01/20/2024 11:14 AM CDT) Heparin POC 4.1 units/mL ACT, CPB 538(H) 112 - 174 sec [facility] Blood 01/20/2024 11:1 4 AM CDT 01/20/2024 11:14 AM CDT Stan Treviño MD LAB POCT ORDERABLES - DEVICE Final Result Performing Organization Address City/[facility] Co de Phone Number [facility] [place] [address] * POCT heparin dose response, CPB (01/20/2024 9:33 AM CDT) Baseline ACT POC 141 112 - 174 sec Heparin dose response slope POC 83 60 - 195 [facility] Projected Heparin Concentration POC 4.1 units/mL [facility] Blood 01/20/2024 9:33 AM CDT 01/20/2024 9:33 AM CDT Stan Treviño MD LAB POCT ORDERABLES - DEVICE Final Result Performing Organization Address City/[facility]/ZIP Co de Phone Number [facility] Department [place] [address] * (ABNORMAL) POC Blood Gas and Chemistries, Arterial - (01/20/2024 9:33 AM CDT) pH, Art POC 7.39 7.35 - 7.45 pCO2, Art POC 32(L) 35 - 45 mmHg [facility]ERNER [facility] pO2, Art POC 342(H) 83 - 108 mmHg [facility] Na, POC 141 135 - 145 mmol/L [facility] K POC 3.7 3.3 - 4.9 mmol/L [facility] Comment: Interpretive Data Not all point of care methods assess for hemolysis. Confirm with instrument and retest K+ if not consistent with clinical signs and symptoms. Current Interpretive Data was last revised on 2023. Cl, POC 113(H) 97 - 110 mmol/L [facility] Ionized Ca, POC 4.83 4.50 - 5.10 mg/dL C[facility] Glucose, POC 146 70 - 199 mg/dL C[facility] Lactate, POC 1.0 0.7 - 2.2 mmol/L [facility] SO2 (kristy) arterial 100(H) 90 - 95 % [facility] Base excess, POC -4.8 mmol/L [facility] HCO3, Art POC 21 20 - 30 mmol/L [facility] Hct, POC 33.0(L) 36.3 - 45.3 % [facility] Total Hb, POC 11.0(L) 11.9 - 15.5 g/dL [facility] Blood 01/20/2024 9:33 AM CDT 01/20/2024 9:33 AM CDT Stan Treviño MD LAB POCT ORDERABLES - DEVICE Final Result [facility] Department [place] [address] * JULIANO Add-On For OR (01/20/2024 8:24 AM CDT) Narrative [facility] PROSOLV_[email or web address]_CONS SCIMAGE - 01/20/2024 8:24 AM CDT Procedure Auto Finalized by Rule: BW CV JULIANO DURING CASE OR Please see the Anesthesiologist's Procedure Note for the results. us Diogo Smith MD CV ECHO PROCEDURES Final Result Performing Organization Address [facility]/ZIP Co de Phone Number [facility] PROSOLV_[email or web address]_[email or web address] SCIMAGE * POCT glucose (01/20/2024 6:55 AM CDT) Glucose, POC 147 70 - 199 mg/dL Blood 01/20/2024 6:55 AM CDT 01/20/2024 6:55 AM CDT us Stan Treviño MD LAB POCT ORDERABLES - DEVICE Final Result Performing Organization Address City/[facility]/ZIP Co de Phone Number [facility] Department [place] [address] * Prepare RBC: 4 Units (01/20/2024 6:24 AM CDT) Product code [id number] CERNER [facility] Unit Number [id number] 6-E [facility] Product Blood Type APOS [facility] Dispense Status RETURNED [facility] Product code [id number] [facility] Unit Number [id number] 2-5 [facility] Product Blood Type APOS [facility] Dispense Status RETURNED [facility] Product code [id number] Unit Number [id number] 1-X [facility] Product Blood Type APOS [facility] Dispense Status RETURNED [facility] Product code [id number] CERNER H Unit Number [id number] 7-H [facility] Product Blood Type APOS [facility] Dispense Status RETURNED [facility] Blood 01/20/2024 6:24 AM CDT 01/20/2024 6:23 AM CDT Narrative JORGE CRANE - 01/20/2024 4:29 PM CDT Specify Procedure:->CABG Are special requirements needed? 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 ([facility]) CAD, multiple vessel Type 2 diabetes mellitus ([facility]) 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, with long-term current use of insulin, unspecified laterality ([facility]) S/P CABG x 3 Postsurgical aortocoronary bypass status ABLA (acute blood loss anemia) Leucocytosis Leukocytosis, unspecified Obesity Obesity, unspecified Thrombocytopenia ([facility]) Unspecified thrombocytopenia DM2 (diabetes mellitus, type 2) ([facility]) AF (paroxysmal atrial fibrillation) ([facility]) ([facility]) Atrial fibrillation documented in this encounter Admitting Diagnoses Diagnosis Coronary artery disease Coronary atherosclerosis of unspecified type of vessel, hoopa or graft Coronary artery disease due to [...] times daily with meals, First dose on Sat01/23/24 at 0800, For 3 days, Each tablet [...] Nightly, First dose on Sat01/27/24 at 2100 204 (Given - Provider: Carmita Eden RN) levothyroxine [...] Aaron)[id number] (Given - Provider: Carmita Eden RN) 09 (Given - Provider: Katharine Finney RN)204 (Given [...] Date POCT GLUCOSE DEVICE 54 01/28/2024 01/20/20 24 Imaging Orders Without Results Count Last Order [...] is undergoing Ring Surveillance for admission to 73Kamryn Tolbert RN [facility] 01/21/2024 01/21/2024 02/04/2024 3:05 AM C AAMIR documented as of this encounter Care Teams Scrap 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
--- OUTSIDE RECORDS SUMMARY | 2024-04-29 21:07 | XMS_ITS | Encounter Summary ---
Author Organization [facility] Healthcare Address [address] [place] [address] Care Team Providers Care Repairer Engine Production Name Role Phone Elpidio Serrato MD Primary Care Provider [phone] Reason for Visit * Auth/Cert (Routine) Specialty Diagnoses / Procedures Referred By Contac t Referred To Contact Diagnoses Coronary artery disease, unspecified vessel or lesion type, unspecified whether angina present, unspecified whether chinik or transplanted heart Coronary artery disease, unspecified vessel or lesion type, unspecified whether angina present, unspecified whether chinik or transplanted heart [I25.10] Procedures SC CABG W/ARTERIAL GRAFT THREE ARTERIAL GRAFTS SC NDSC SURG W/VIDEO-ASSISTED HARVEST VEIN CABG 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 x3 AGOSTO VEIN 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 Referral ID Status Reason Start Date Expiration Date Visits Re quested Visits Authorized [id number] 1 1 Encounter Details Date Type Department Care Team (Late st Contact Info) Description 01/20/2024 8:00 AM CDT - 01/20/2024 4:55 PM CDT Surgery [facility] Operating Room [address] [place] [address] Stan Treviño MD [id number] [place] [address] 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 X3 USING AGOSTO AND LEFT & RIGHT SAPHENOUS ENDOVEIN HARVEST Surgery Details Date/Time Status Location OR Service Patient Class Case Class Case Type Trauma Case? 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 On [...] DM2 (diabetes mellitus, type 2) ([facility]) Obesity ABLA (acute blood loss anemia) AF (paroxysmal atrial fibrillation) ([facility]/HCC) ([facility]) Resolved Problems: Leucocytosis Thrombocytopenia ([facility]) DETAILS OF HOSPITAL STAY Presenting Problem/History of Present Illness: 73 y.o. yo female w/ PMHx of HTN, HLD< CAD, mild MR, anemia, CKD, DM type II ( Hgb A1c 5.9), hypothyroidism, and chronic knee pain. He was found to have multivessel diease on [facility] and is being seenby CTS for [...] prior to transfer to the Rehab facility ([facility]) Active Issues Requiring Follow-up: Continue PT/OT at the rehab center until able to discharge to home. Will need to call for appt with Dr Treviño if not already scheduled - office number is [phone]. Operative Procedures Performed: Procedure(s): CORONARY ARTERY BYPASS [...] Your Medications These medications were sent to [facility] AT Portal to Registered [facility] [id number] empagliflozin 10 mg tablet insulin lispro 100 [...] Comment s Discharge to an Rehab facility [facility] ([place], [place]) documented in this encounter Progress Notes * Christy Limon RN - 01/28/2024 12:58 PM CDT 01/22/24 1312 Discharge Summary Discharge Disposition Acute Rehab Specify Facility [facility] Facility Contact Number [phone] Bowie Discharge Records Transfer Form Completed;Chart Copied Recommended Discharge Level of Care Acute Rehab Actual Discharge Level of Care Acute Rehab Does Actual Level of Care Match Care Team Recommendation? Yes Post Acute Care Plan Post Acute Care Facility Yes Referral Status Accepted Accepted Post Acute Care Location and Contact [facility] Accepted Post Acute Care Discharge Additional [...] not assigned to this patient, please call [phone]. 01/27/24 8368 General Session Type Treatment OT Received On [...] none Interval History: Working on transfer to [facility], still with hypoglycemic events, reduced insulins again. Plan for d/c tomorrow to [facility], blood sugars should be stable at that [...] AF (paroxysmal atrial fibrillation) (CMS/HCC) ([facility]) Assessment & Plan Short episode of AF [...] DM2 (diabetes mellitus, type 2) ([facility]) Assessment & Plan - Hemoglobin A1c 5.9 [...] 2 diabetes mellitus with hyperlipidemia ([facility]) 12/07/2016 Last A1C 5.9%, without complication Vitamin [...] Carbohydrate Diet effective now Question Answer Comment ([facility]) Diet type Restricted Fat / Sodium Restriction: Low Fat, Low Chol Diabetic: Consistent Carbohydrate 01/21/24 1345 Assessment / Impression: The pt states her appetite has been improving since surgery. She is % of her meals. She is no longer drinking the Glucerna shakes. Order cancelled. Last BM 01/26. Awaiting rehab bed. Ashley [address] [phone] * Eloisa Freeman NP - 01/26/2024 1:26 PM CDT Cardiac Surgery Daily Progress 01/19: s/p CABG x3 SUBJECTIVE Chief complaint: none Interval History: hypoglycemic x 2 - decreased the lantus today. Remains in NSR. Planning for [facility]IS[facility] at [place] OBJECTIVE Current Facility-Administered Medications: acetaminophen (TYLENOL) tablet 1,000 mg, 1,000 mg, feeding tube, Q6H LAMONTEDivya Abbey Nicole, PA, 1,000 mg at 01/26/24 0434 [START ON 01/31/2024] amiodarone (PACERONE) tablet 200 mg, 200 mg, oral, BID, Marisela Russell, LACE PAPER MACHINE OPERATOR [START ON 02/03/2024] amiodarone (PACERONE) tablet 200 mg, 200 mg, oral, Daily, Marisela Russlel, LACE PAPER MACHINE OPERATOR amiodarone (PACERONE) tablet 400 mg, 400 mg, oral, TID, StMarisela hollis, LACE PAPER MACHINE OPERATOR, 400 mg at 01/26/24 0827 [START ON [...] 100 mg, 100 mg, feeding tube, BID, Cintiha Stokes PA, 100 mg at 01/20/242020 furosemide [...] 5 mg, 5 mg, intravenous, Q6H PRN, Cintiha Stokes PA, 5 mg at 01/21/24 08 [...] DM2 (diabetes mellitus, type 2) ([facility]) Assessment & Plan - Hemoglobin A1c 5.9 [...] treatment team and contact the PT or PLASTICS SCIENTIST currently assigned to this patient. If a physical therapy clinician is not assigned to this patient, please call [phone]. Multi-Disciplinary Problems (from Physical Therapy) Active Problems [...] mg, 200 mg, oral, BID, Marisela Russell, LACE PAPER MACHINE OPERATOR [START ON 02/03/2024] amiodarone (PACERONE) tablet 200 mg, 200 mg, oral, Daily, Marisela Russell, JAMES amiodarone (PACERONE) tablet 400 mg, 400 mg, oral, TID, Marisela Russell, LACE PAPER MACHINE OPERATOR [START ON 01/28/2024] amiodarone (PACERONE) tablet 400 [...] DM2 (diabetes mellitus, type 2) ([facility]) Assessment & Plan - Hemoglobin A1c 5.9 [...] 1,000 mg, 1,000 mg, feeding tube, Q6H [facility], Cinthia Stokes PA, 1,000 mg at [...] DM2 (diabetes mellitus, type 2) ([facility]) Assessment & Plan - Hemoglobin A1c 5.9 [...] treatment team and contact the PT or PLASTICS SCIENTIST currently assigned to this patient. If a physical therapy clinician is not assigned to this patient, please call [phone]. 01/24/24 1001 PT Last Visit Session Type [...] independence with functional mobility. * Nii Garces, LACE PAPER MACHINE OPERATOR - 01/23/2024 4:46 PM CDT Cardiac Surgery [...] not assigned to this patient, please call [phone]. 01/23/24 0910 General Session Type Treatment OT [...] 1,000 mg, 1,000 mg, feeding tube, Q6H [facility], Cinthia Stokes PA, 1,000 mg at [...] 100 mg, 100 mg, feeding tube, BID, Cinthai Stokes PA, 100 mg at 01/20/242020 glucagon [...] treatment team and contact the PT or PLASTICS SCIENTIST currently assigned to this patient. If a physical therapy clinician is not assigned to this patient, please call [phone]. Multi-Disciplinary Problems (from Physical Therapy) Active Problems [...] better Prior Function Prior Function Level of [place]: Independent with ADLs, Independent functional transfers, Independent [...] not assigned to this patient, please call [phone]. 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 female admitted on 01/20/2024 6:04 AM with chief complaint of CAD. PMH: CAD, PVD, CKD, HTN, HLD, T2DM (insulin dependent) Abbreviated Hospital Course: 01/19: s/p CABG x3, admitted to 8200 intubated, on dobutamine. Extubated overnight. Interval History: - Extubated to IA ~2130 - Dobutamine continued at 2.5, per [...] POC 1.2 0.7 - 2.2 mmol/L SO2 (krisyt) arterial 99 (H) 90 - 95 % [...] a-line (01/19), R axillary a-line (01/19), RIJ [place] (01/19), PIV x2 Goals of care: Full [...] plan with the ICU team and other medical/insurance healthcare consultant staff, making frequent assessments and decisions [...] AM Result Value Ref Range Product code Z9237I61 Unit Number [id number] Product Blood Type APOS Dispense Status RETURNED Product code P5043T61 Unit Number [id number] Product Blood Type APOS Dispense Status RETURNED Product code W2233L83 Unit Number [id number] Product Blood Type APOS Dispense Status RETURNED Product code T6609W28 Unit Number [id number] Product Blood Type APOS Dispense Status RETURNED [...] AM Result Value Ref Range Product code E0562I60 Unit Number [id number] Product Blood Type APOS Dispense Status RETURNED Product code Q5031Y84 Unit Number [id number] Product Blood Type APOS Dispense Status RETURNED Product code T4962F17 Unit Number [id number] Product Blood Type APOS Dispense Status RETURNED Product code L2566J37 Unit Number [id number] Product Blood Type APOS Dispense Status RETURNED [...] plan with the ICU team and other medical/insurance healthcare consultant staff, making frequent assessments and decisions [...] and Planning Preoperative Evaluation Record Evaluation type/location: [facility] Planned procedure site: [facility] (Pods 2//[facility]) Date: 01/17/24 Anesthesia Evaluation Isabelle Lutz is a 73 y.o. female 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 x3 AGOSTO VEIN (Chest) 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 (Thigh) Pre-Op Diagnosis Codes: * Coronary artery disease, unspecified vessel or lesion type, unspecified whether angina present, unspecified whether chinik or transplanted heart [I25.10] HISTORY HPI 73 [...] Other arrhythmia (RBBB + LAFB) Pertinent negatives: MA ; CABG ; systolic/diastolic dysfunction w/o CHF ; valve replacement; atrialfibrillation; pacemaker/ICD; PVD; DVT/PE; drug-eluting stent(s); bare metal stent(s) and unknown stent(s) type Comments: Dr. Kerns DARLIN 10/04/23. 11/2023 [facility]: Severe multivessel coronary disease with chronic [...] Other + Diabetes mellitus ([employer]. Managed by crumb packer.) - Diabetes type 2. Outpatient insulin use:current. [...] neck. Got some SOB when walking from environmental aide to CPAP. Starts with SOB then the [...] neck. Got some SOB when walking from environmental aide to CPAP. Starts with SOB then the [...] artery disease 12/18/2023 Coronary artery disease involving chinik heart 12/12/2023 Encounter for preprocedural cardiovascular examination [...] ECG Comments: Synus Rhythm Echocardiogram(s): Stress Echo [facility] - 11/15/23 Ejection Fraction: 45-50% LV Global [...] TR jet. Stress test(s): N/A Cardiac catheterization(s): [facility] - 11/25/23 DIAGNOSTIC IMPRESSION: Severe multivessel [...] Informed consent: Risks, benefits, alternatives discussed and patient/physician representative/guardian agrees and accepts. Patient's stated name/ [...] Maneuver [x] Sutures secured immediately after removal [][place] sutures removed [] No sutures present Instruction [...] Informed consent: Risks, benefits, alternatives discussed and patient/physician representative/guardian agrees and accepts. Patient's stated name/ [...] [] Sutures secured immediately after removal [] [place] sutures removed [] No sutures present Instruction [...] Lutz, 73 y.o. female (: 1950) Room: [place] [address] ( ) LOS: 2 Consult Question: diabetes [...] reliability: CKD, anemia Managed by PMD or Cash Crop Farmer Dr. Bell Hx of DKA/HHS/Hospitalizations for hypoglycemia: [...] fracture 04/29/2023 Cataract CHF (congestive heart failure) ([facility]/HCC) ([facility]) Clavicle enlargement 06/16/2018 Will image to determine etiology. Coronary artery disease Coronary artery disease due to calcified coronary lesion 01/20/2024 Diabetes mellitus (HCC) Diabetic neuropathy ([facility]) 01/21/2024 Diabetic retinopathy ([facility]) Glaucoma Hypertension Hypothyroidism 11/13/2014 Knee pain 01/04/2015 Multiparity History Of ___ Previous Pregnancies - 7 pregnancies, 2 children - C-sections. (Added by TW Conv) Nonproliferative diabetic retinopathy ([facility]) 11/03/2009 Osteoarthritis of knee 12/16/2007 Personal history [...] & Lipid Research Contact Info: New Consults: [phone]) General Endocrine (Non-Diabetes): [phone] (Check 'Treatment Team' assignment for Diabetes 1 vs 2 vs 3) Diabetes 1: Diabetes Fellow: [phone] Diabetes 2: Vanita Ware, LACE PAPER MACHINE OPERATOR: [phone] Diabetes 3: See Treatment Team Provider (or [...] Lutz, 73 y.o. female (: 1950) Room: [id number] ( ) LOS: 1 Consult Question: [...] reliability: CKD, anemia Managed by PMD or Cash Crop Farmer Dr. Bell Hx of DKA/HHS/Hospitalizations for hypoglycemia: [...] Diabetes mellitus (HCC) Diabetic retinopathy ([facility]) Glaucoma Hypertension Hypothyroidism 11/13/2014 Knee pain 01/04/2015 [...] right hand, III finger, 08/20 (Added by [employer]) Social & Family History Social History [...] & Lipid Research Contact Info: New Consults: [phone]) General Endocrine (Non-Diabetes): [phone] (Check 'Treatment Team' assignment for Diabetes 1 vs 2 vs 3) Diabetes 1: Diabetes Fellow: [phone] Diabetes 2: Vanita Ware, LACE PAPER MACHINE OPERATOR: [phone] Diabetes 3: See Treatment Team Provider (or [...] PM CDT Report called to Tracy at [facility]. PIVs and tele removed. Discharge packet and education reviewed with patient and family at bedside. All questions answered. Patient ready for discharge. documented in this encounter Miscellaneous Notes * Consults, Subsequent - Vanita Ware NP - 01/28/2024 12:35 PM CDT Endocrinology & Diabetes Inpatient Subsequent Consult Note Patient: Isabelle Lutz, 73 y.o. female (: 1950) Room: [place] [address] ( ) LOS: 8 Isabelle Lutz is [...] yearly or sooner as indicated by your operating systems specialist Pending results for primary service or primary care physician to follow up on: None at time of discharge Follow Up Plan: [facility] Endocrinology Appointment date: Follow up with Dr. Bell on 03/02/24 at 11:40 AM as scheduled Location: [facility]: [address] [place] [address],[address] Floor, [place] [address] Endocrinology clinic number: [phone] -- Vanita Ware NP Endocrinology, Metabolism, & Lipid Research Contact Info: New Endocrinology Diabetes Consults: [phone] General Endocrine (Non-Diabetes): [phone] Treatment Teams: [facility] Endocrinology Diabetes 1: Fellow + Attending [facility] Endocrinology Diabetes 2: Vanita Ware NP at [phone] [facility] Endocrinology Diabetes 3: Marica Irvin NP at [phone] [facility] Endocrinology Diabetes 4: Jacki Patel NP (/) at [phone] or Leeanne Lincoln NP (//) at [phone] Diabetes After-Hours & Weekends: Diabetes Fellow [phone] or [phone] * Plan of Care - Katharine Finney [...] planning, remain free from falls and injury Longterm Patient Centered Goal for Treatment: safe discharge [...] type, unspecified whether angina present, unspecified whether chinik or transplanted heart [I25.10] Coronary artery disease [...] yearly or sooner as indicated by your operating systems specialist Pending results for primary service or primary care physician to follow up on: None at time of discharge Follow Up Plan: [facility] Endocrinology Appointment date: Follow up with Dr. Bell on 03/02/24 at 11:40 AM as scheduled Location: [facility]: [address] [place] [address],[address] Floor, [place] [address] Endocrinology clinic number: [phone] * Plan of Care - Carmita Eden RN - 01/27/2024 10:23 PM CDT Goals: Clinical Goals for the Shift: hemodynamically stable, promote comfort and sleep, labs will trend toward normal values, pt will not fall Longterm Patient Centered Goal for Treatment: safe discharge [...] managment, remain free from falls and injury Tester Regulator Patient Centered Goal for Treatment: safe discharge to home Summary: VSS, pain management plan followed, pt remained free from falls and injury. * Consults, Subsequent - Vanita Ware NP - 01/27/2024 12:32 PM CDT Endocrinology & Diabetes Inpatient Subsequent Consult Note Patient: Isabelle Lutz, 73 y.o. female (: 1950) Room: [place] [address] ( ) LOS: 7 Isabelle Lutz is [...] Research Contact Info: New Endocrinology Diabetes Consults: [phone] General Endocrine (Non-Diabetes): [phone] Treatment Teams: [facility] Endocrinology Diabetes 1: Fellow + Attending [facility] Endocrinology Diabetes 2: Vanita Ware NP at [phone] [facility] Endocrinology Diabetes 3: Marcia Irvin NP at [phone] [facility] Endocrinology Diabetes 4: Jacki Patel NP (/) at [phone] or Leeanne Lincoln NP (//) at [phone] Diabetes After-Hours & Weekends: Diabetes Fellow [phone] or [phone] * Plan of Care - Carmita Eden RN - 01/26/2024 10:48 PM CDT Problem: Respiratory Goal: Achieves optimal ventilation and oxygenation Flowsheets (Taken 01/26/2024 8505) Achieves optimal ventilation and oxygenation: Assess for [...] toward normal values, pt will not fall Tester Regulator Patient Centered Goal for Treatment: safe discharge [...] y.o. female (: 1950) Room: [place] [address] [address] ( ) LOS: 6 Isabelle Lutz is [...] reliability: CKD, anemia Managed by PMD or Cash Crop Farmer Dr. Bell Hx of DKA/HHS/Hospitalizations for hypoglycemia: [...] toward normal values, pt will not fall Tester Regulator Patient Centered Goal for Treatment: safe discharge [...] Lutz, 73 y.o. female (: 1950) Room: [place] [address] ( ) LOS: 5 Isabelle Lutz is [...] reliability: CKD, anemia Managed by PMD or Cash Crop Farmer Dr. Bell Hx of DKA/HHS/Hospitalizations for hypoglycemia: [...] comfort and safety, monitor labs, sleep hygiene Longterm Patient Centered Goal for Treatment: Return to home Summary: VSS, comfort and safety maintained, labs monitored. * [facility] - 01/24/2024 4:36 PM CDT [...] DM2 (diabetes mellitus, type 2) ([facility]) - Hemoglobin A1c 5.9 % on admission [...] y.o. female (: 1950) Room: [place] [address] [address] ( ) LOS: 4 Isabelle Lutz is [...] Research Contact Info: New Endocrinology Diabetes Consults: [phone] General Endocrine (Non-Diabetes): [phone] Treatment Teams: [facility] Endocrinology Diabetes 1: Fellow + Attending [facility] Endocrinology Diabetes 2: Vanita Ware NP at [phone] [facility] Endocrinology Diabetes 3: Marcia Irvin NP at [phone] [facility] Endocrinology Diabetes 4: Jacki Patel NP (M/) at [phone] or Leeanne Lincoln NP (//) at [phone] Diabetes After-Hours & Weekends: Diabetes Fellow [phone] or [phone] * Plan of [place] - Sonia Pineda [...] control, bs management, maintain comfort and safety Tester Regulator Patient Centered Goal for Treatment: Return to home Summary: VSS, had multiple BMs, pain controlled with current regimen. * Plan of Eduard Hoffmann - 01/23/2024 6:18 PM CDT Goals: Clinical Goals for the Shift: VSS, pain control, safety throughout shift Tester Regulator Patient Centered Goal for Treatment: Return to [...] was found to have multivessel diease on [facility] and is being seenby CTS for [...] y.o. female (: 1950) Room: [place] [id number] ( ) LOS: 3 Isabelle Lutz is a 73 y.o. female with PMH significant for hypothyroidism, osteoporosis, CAD, PVD, CKD, HTN, HLD and T2DM who presented to the hospital for planned CABG (now s/p 3 vessel CABG, [place], 01/20/24). The Endocrinology/Diabetes Service is being consulted [...] Research Contact Info: New Endocrinology Diabetes Consults: [phone] General Endocrine (Non-Diabetes): [phone] Treatment Teams: [facility] Endocrinology Diabetes 1: Fellow + Attending [facility] Endocrinology Diabetes 2: Vanita Ware NP at [phone] [facility] Endocrinology Diabetes 3: Marcai Irvin NP at [phone] [facility] Endocrinology Diabetes 4: Jacki Patel NP (/) at [phone] or Leeanne Lincoln NP (//) at [phone] Diabetes After-Hours & Weekends: Diabetes Fellow [phone] or [phone] * Plan of Care - Eduard Berger - 01/22/2024 5:28 PM CDT Goals: Clinical Goals for the Shift: VSS, Pain Control, Free from falls and injury, have tubes and wires removed when possible. Tester Regulator Patient Centered Goal for Treatment: D/c home [...] is interested in IRF - discussed choices. Can Closing Machine Operator noted patient has been recommended for Inpatient Rehab by PT/OT. Can Closing Machine Operator proactively initiated a referral to [facility] preferred Inpatient Rehab Facility - [facility]. Can Closing Machine Operator met with the patient/family at bedside to discuss recommendations by therapy and to work on a potential discharge disposition plan. Can Closing Machine Operator provided education to patient/family on the rehabilitation process. Patient reported he/she was interested in placement for rehabilitation. parking manager provided a list of additional potential Inpatient Rehab Facility choices to patient and family. Patient and family selected the following choices (preference order): [facility] location parking manager sent out additional referrals via [facility]. CM awaiting acceptance from an Inpatient RehabFacility and will continue to work on discharge planning with patient and family. Primary Source of Transportation: Does the patient need discharge transport arranged?: Yes (to be determined EMS vs Family) Has discharge transport been arranged?: No (01/22/241311) Health Insurance Coverage: Medicare [facility] Federal Prescription Coverage: yes Pharmacy: [facility] Pharmacy - LYNNE Clark - [facility] AT Portal to Registered [facility] Sites [facility] Amber [place] [id number] [facility]/pharmacy #[id number] [place] [address] - [address] [place] [id number] Primary Care Provider: Elpidio Serrato MD Prior [...] Collaboration with Patient, Provider, Direct Care Nurse, Abrasive Mixer Helper, and other members of theHealth Care Team to assure needed interventions completed. 2. Return patient to optimal level of self-care post discharge. 3. Can Closing Machine Operator will follow for Discharge Planning - interventions as needed 4. Anticipated level of care at discharge 5. Planned Discharge Disposition Christy Limon RN * Plan of Care - Luis Dos Santos RN - 01/22/2024 6:46 AM CDT Goals: Clinical Goals for the Shift: VSS, Pain Control, Free from falls and injury, have tubes and wires removed when possible. Longterm Patient Centered Goal for Treatment: D/c home [...] Admit Date: 01/20/2024 SURGEON Stan Treviño MD HEAD DOFFER Jeff Alaniz MD ANESTHESIA Diogo Smith MD [...] bypass grafting x3, placement of skeletonized left JIAMEE to the LAD, saphenous vein graft to [...] MD - Fellow Anesthesiologist: Diogo Smith MD Instructional Design Technologist: Chandrakant Saba MD Blasting Clay Miner: Gerald Guzman CCP; Jason Kapoor CCP Plastics Engineer: Ben Hi Plastics Engineer Relief: Glenna Lambert RN Scrub Relief: Glenna Lambert RN; Germaine Watt ST Scrub: Emmie Ware RN HOURLY SHIFT MANAGER: Rachelle Rivas RN; Gloria Gannon CRNFA DATE OF SURGERY : 01/20/2024 Preoperative Diagnosis: Pre-op Diagnosis * Coronary artery disease, unspecified vessel or lesion type, unspecified whether angina present, unspecified whether chinik or transplanted heart [I25.10] Postoperative Diagnosis: Post-op Diagnosis * Coronary artery disease, unspecified vessel or lesion type, unspecified whether angina present, unspecified whether chinik or transplanted heart [I25.10] Procedure(s): Procedure(s) (LRB): [...] Implant Name Type Inv. Item Serial No. Master Brewer Lot No. LRB No. Used Action Deskwanted Suture [place] Cor Knot Pre Loaded Fastener Device Micro Titanium 0 40951 - S0 - [id number] Deskwanted Suture [place] Cor Knot Pre Loaded Fastener Device Micro Titanium 0 36044 0 Bango [id number] N/A 1 Implanted Deskwanted Suture [place] Cor Knot Pre Loaded Fastener Device Micro Titanium 0 14031 - S0 - [id number] Deskwanted Suture [place] Cor Knot Pre Loaded Fastener Device Micro Titanium 0 26943 0 Bango [id number] N/A 1 Implanted Deskwanted Suture [place] Cor Knot Pre Loaded Fastener Device Micro Titanium 0 10774 - S0 - [id number] Deskwanted Suture [place] Cor Knot Pre Loaded Fastener Device Micro Titanium 0 63598 0 Bango [id number] N/A 1 Implanted Deskwanted Suture [place] Cor Knot Pre Loaded Fastener Device Micro Titanium 0 53589 - S0 - [id number] Deskwanted Suture [place] Cor Knot Pre Loaded Fastener Device Micro Titanium 0 04119 0 Bango [id number] N/A 1 Implanted ATRICURE Device Left Atrial Appendage Malleable Shaft 180 Degree Rotation White Atriclip Flex V 40mm Flexv40 [id number] - [id number] ATRICURE Device Left Atrial Appendage Malleable Shaft 180 Degree Rotation White Atriclip Flex V 40mm Flexv40 ACHV40 Atricure [id number] N/A 1 Implanted [employer] SternaLock 360 Sternal Closure 74-0004 - [id number] [employer] [id number] Sternal Closure 74-0004 [employer] [id number] N/A 1 Implanted [employer] Sternalock Hernan 2.4mm 14mm Self Drill Lock Sternum Cancellous 73-2414 - [id number] [employer] Sternalock Hernan 2.4mm 14mm Self Drill Lock Sternum Cancellous 73-2414 [employer] N/A 12 Implanted [employer] Sternalock Hernan 2.4mm 16mm Self Drill Lock Sternum Cancellous 73-2416 - [id number] [employer] Sternalock Hernan 2.4mm 16mm [...] to screen patient for inclusion into [facility] # [id number]: LeAAPS Trial The patient meets all inclusion [...] 6:00 AM CDT 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) POCT [...] 7:09 PM CDT 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) POCT [...] type, unspecified whether angina present, unspecified whether chinik or transplanted heart ISOLATION LEFT ATRIAL APPENDAGE 01/20/2024 8:04 AM CDT Coronary artery disease, unspecified vessel or lesion type, unspecified whether angina present, unspecified whether chinik or transplanted heart 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 01/20/2024 8:04 AM CDT Coronary artery disease, unspecified vessel or lesion type, unspecified whether angina present, unspecified whether chinik or transplanted heart 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 01/20/2024 8:04 AM CDT Coronary artery disease, unspecified vessel or lesion type, unspecified whether angina present, unspecified whether chinik or transplanted heart POCT GLUCOSE DEVICE Routine 01/20/2024 6 :55 AM CDT PREPARE RBC Timed 01/20/2024 6:24 AM CDT documented in this encounter Results * POCT glucose (01/28/2024 12:00 PM CDT) Glucose, POC 179 70 - 199 mg/dL Blood 01/28/2024 12:0 0 PM CDT 01/28/2024 12:00 PM CDT Stan Treviño MD LAB POCT ORDERABLES - DEVICE Final Result Performing Organization Address City/[facility] Co de Phone Number [facility] [place] [address] * POCT glucose (01/28/2024 10:38 AM CDT) Glucose, POC 179 70 - 199 mg/dL Blood 01/28/2024 10:3 8 AM CDT 01/28/2024 10:38 AM CDT Stan Treviño MD LAB POCT ORDERABLES - DEVICE Final Result Performing Organization Address [facility] Co de Phone Number [facility] [place] [address] * POCT glucose (01/28/2024 7:52 AM CDT) Glucose, POC 106 70 - 199 mg/dL Blood 01/28/2024 7:52 AM CDT 01/28/2024 7:52 AM CDT Stan Treviño MD LAB POCT ORDERABLES - DEVICE Final Result Performing Organization Address City/[facility] Co de Phone Number [facility] [place] [address] * ECG 12 lead (01/28/2024 4:12 AM CDT) Ventricular Rate EKG/Min 66 BPM [facility] Atrial Rate 66 BPM [facility] SC-Interval (MSEC) 142 ms [facility] QRS-Interval (MSEC) 124 ms [facility] QT-Interval (MSEC) 470 ms [facility] QTc 492 ms [facility] P Saugerties 52 degrees [facility] R Saugerties -61 degrees [facility] T Saugerties 39 degrees [facility] Diagnosis Normal sinus rhythm Right bundle branch block Left anterior fascicular block Bifascicular block Possible Lateral infarct , age undetermined Abnormal ECG When compared with ECG of 27-JAN-2024 05:05, Borderline criteria for Lateral infarct are now Present Confirmed by MAHI RACHEL M.D ([id number]) on 01/28/2024 11:47:23 AM [facility] 01/28/2024 4:12 AM CDT 01/28/2024 11:47 AM CDT us Marisela Russell LACE PAPER MACHINE OPERATOR ECG ORDERABLES Final Res ult Performing Organization Address City/[facility]/ZIP Co de Phone Number [facility] * POCT glucose (01/28/2024 1:18 AM CDT) Glucose, POC 119 70 - 199 mg/dL Blood 01/28/2024 1:18 AM CDT 01/28/2024 1:18 AM CDT Stan Treviño MD LAB POCT ORDERABLES - DEVICE Final Result Performing Organization Address [facility] Co de Phone Number [facility] Department [place] [address] * (ABNORMAL) eGFR (01/27/2024 9:03 PM CDT) [...] NP LAB BLOOD ORDERABLES Final R esult [facility] [place] [address] * (ABNORMAL) CBC without differential (01/27/2024 9:03 PM CDT) WBC 7.6 3.8 - 9.9 K/cumm Hgb 7.9(L) 11.9 - 15.5 g/dL [facility] Hct 24.4(L) 35.6 - 45.5 % [facility] Plt 230 150 - 400 K/cumm [facility] MPV 11.0 9.1 - 12.3 fL [facility] RBC 2.69(L) 3.90 - 5.20 M/cumm [facility] MCV 90.7 81.3 - 96.4 fL [facility] MCH 29.4 27.1 - 33.3 pg [facility] MCHC 32.4 32.3 - 35.7 g/dL [facility] RDW CV 14.2 11.1 - 14.9 % [facility] RDW SD 45.8 35.7 - 48.1 fL [facility] NRBC abs 0.00 0.00 - 0.01 K/cumm [facility] Blood 01/27/2024 9:03 PM CDT 01/27/2024 9:35 PM CDT us Nii Garces NP LAB BLOOD ORDERABLES Final R esult [facility] [place] [address] * (ABNORMAL) Basic metabolic panel (01/27/2024 9:03 PM CDT) Sodium 138 135 - 145 mmol/L Potassium, pl 4.4 3.3 - 4.9 mmol/L [facility] Chloride 104 97 - 110 mmol/L [facility] CO2 25 22 - 32 mmol/L [facility] Anion gap 9 2 - 15 mmol/L [facility] BUN 29(H) 6 - 25 mg/dL [facility] Creatinine 1.40(H) 0.60 - 1.10 mg/dL [facility] Glucose 165 70 - 199 mg/dL [facility] Comment: Interpretive Data Fasting glucose >/= [...] 2022. Calcium 8.5 8.5 - 10.3 mg/dL [facility] Blood 01/27/2024 9:03 PM CDT 01/27/2024 9:35 PM CDT Nii Garces NP LAB BLOOD ORDERABLES Final R esult Performing Organization Address [facility] Co de Phone Number [facility] [place] [address] * Phosphorus (01/27/2024 9:03 PM CDT) Phosphorus, pl 3.6 2.3 - 4.5 mg/dL Blood 01/27/2024 9:03 PM CDT 01/27/2024 9:35 PM CDT Nii Garces NP LAB BLOOD ORDERABLES Final R esult Performing Organization Address [facility] de Phone Number [facility] [place] [address] * Magnesium (01/27/2024 9:03 PM CDT) Magnesium 2.0 1.4 - 2.5 mg/dL Blood 01/27/2024 9:03 PM CDT 01/27/2024 9:35 PM CDT Nii Garces NP LAB BLOOD ORDERABLES Final R esult Performing Organization Address [facility] de Phone Number [facility] [place] [address] * (ABNORMAL) POCT glucose (01/27/2024 7:33 PM CDT) Glucose, POC 226(H) 70 - 199 mg/dL Blood 01/27/2024 7:33 PM CDT 01/27/2024 7:33 PM CDT Stan Treviño MD LAB POCT ORDERABLES - DEVICE Final Result Performing Organization Address [facility] Co de Phone Number [facility] [place] [address] * POCT glucose (01/27/2024 4:55 PM CDT) Glucose, POC 163 70 - 199 mg/dL Blood 01/27/2024 4:55 PM CDT 01/27/2024 4:55 PM CDT Stan Treviño MD LAB POCT ORDERABLES - DEVICE Final Result Performing Organization Address [facility] [place] [address] * POCT glucose (01/27/2024 11:20 AM CDT) Glucose, POC 127 70 - 199 mg/dL Blood 01/27/2024 11:2 0 AM CDT 01/27/2024 11:20 AM CDT Stan Treviño MD LAB POCT ORDERABLES - DEVICE Final Result Performing Organization Address [facility] Co de Phone Number [facility] [place] [address] * POCT glucose (01/27/2024 8:51 AM CDT) Glucose, POC 106 70 - 199 mg/dL Blood 01/27/2024 8:51 AM CDT 01/27/2024 8:51 AM CDT us Stan Treviño MD LAB POCT ORDERABLES - DEVICE Final Result Performing Organization Address [facility] Co de Phone Number [facility] [place] [address] * POCT glucose (01/27/2024 7:29 AM CDT) Glucose, POC 107 70 - 199 mg/dL Blood 01/27/2024 7:29 AM CDT 01/27/2024 7:29 AM CDT Stan Treviño MD LAB POCT ORDERABLES - DEVICE Final Result Performing Organization Address City/[facility]/ZIP Co de Phone Number [facility] Department [place] [address] * ECG 12 lead (01/27/2024 5:05 AM CDT) [facility] Ventricular Rate EKG/Min 80 BPM [facility] Atrial Rate 80 BPM [facility] SC-Interval (MSEC) 136 ms [facility] QRS-Interval (MSEC) 122 ms [facility] QT-Interval (MSEC) 426 ms [facility] QTc 491 ms [facility] P Saugerties 55 degrees [facility] R S[place]erties -63 degrees [facility] T Saugerties 38 degrees [facility] Diagnosis Normal sinus rhythm with sinus arrhythmia Right bundle branch block Left anterior fascicular block Bifascicular block Abnormal ECG When compared with ECG of 26-JAN-2024 02:54, (unconfirmed) Premature ventricular complexes are no longer Present Confirmed by MAHI RACHEL M.D ([id number]) on 01/27/2024 12:23:55 PM [facility] 01/27/2024 5:05 AM CDT 01/27/2024 12:23 PM CDT us Marisela Russell LACE PAPER MACHINE OPERATOR ECG ORDERABLES Final Res ult [facility] * POCT glucose (01/27/2024 3:13 AM CDT) Glucose, POC 123 70 - 199 mg/dL Blood 01/27/2024 3:13 AM CDT 01/27/2024 3:13 AM CDT us Stan Treviño MD LAB POCT ORDERABLES - DEVICE Final Result Performing Organization Address [facility] Co de Phone Number [facility] [place] [address] * POCT glucose (01/27/2024 2:14 AM CDT) Glucose, POC 119 70 - 199 mg/dL Blood 01/27/2024 2:14 AM CDT 01/27/2024 2:14 AM CDT us Stan Treviño MD LAB POCT ORDERABLES - DEVICE Final Result Performing Organization Address [facility] [place] [address] * POCT glucose (01/27/2024 1:39 AM CDT) Glucose, POC 92 70 - 199 mg/dL Blood 01/27/2024 1:39 AM CDT 01/27/2024 1:39 AM CDT us Stan Treviño MD LAB POCT ORDERABLES - DEVICE Final Result Performing Organization Address [facility] Co de Phone Number [facility] [place] [address] * POCT glucose (01/27/2024 1:19 AM CDT) Glucose, POC 73 70 - 199 mg/dL Blood 01/27/2024 1:19 AM CDT 01/27/2024 1:19 AM CDT us Stan Treviño MD LAB POCT ORDERABLES - DEVICE Final Result Performing Organization Address [facility] Co de Phone Number [facility] Department [place] [address] * (ABNORMAL) POCT glucose (01/27/2024 1:00 AM CDT) Glucose, POC 58(L) 70 - 199 mg/dL Blood 01/27/2024 1:00 AM CDT 01/27/2024 1:00 AM CDT Stan Treviño MD LAB POCT ORDERABLES - DEVICE Final Result [facility] Department [place] [address] * (ABNORMAL) eGFR (01/26/2024 9:20 PM CDT) [...] CDT 01/26/2024 9:49 PM CDT Nii Garces LACE PAPER MACHINE OPERATOR LAB BLOOD ORDERABLES Final R esult Performing Organization Address City/[facility]/ZIP Co de Phone Number [facility] [place] [address] * Type and screen (01/26/2024 9:20 PM CDT) Pathologist [facility] ABO Rh A Positive Sergio, indirect Negative [facility] Blood 01/26/2024 9:20 PM CDT 01/26/2024 9:55 PM CDT Narrative [facility] - 01/26/2024 10:57 PM CDT Has the patient had Daratumumab or Isatuximab in the past 6 months?->Unknown us Eloisa Freeman LACE PAPER MACHINE OPERATOR LAB BLOOD BANK TEST ORDERABLES F inal Result Performing Organization Address [facility] Co de Phone Number [facility] [place] [address] * (ABNORMAL) CBC without differential (01/26/2024 9:20 PM CDT) [facility] WBC 8.2 3.8 - 9.9 K/cumm Hgb 8.0(L) 11.9 - 15.5 g/dL [facility] Hct 24.6(L) 35.6 - 45.5 % [facility] Plt 211 150 - 400 K/cumm [facility] MPV 11.0 9.1 - 12.3 fL [facility] RBC 2.73(L) 3.90 - 5.20 M/cumm [facility] MCV 90.1 81.3 - 96.4 fL [facility] MCH 29.3 27.1 - 33.3 pg [facility] MCHC 32.5 32.3 - 35.7 g/dL [facility] RDW CV 13.9 11.1 - 14.9 % [facility] RDW SD 45.2 35.7 - 48.1 fL [facility] NRBC abs 0.00 0.00 - 0.01 K/cumm [facility] Blood 01/26/2024 9:20 PM CDT 01/26/2024 9:49 PM CDT Nii Garces NP LAB BLOOD ORDERABLES Final R esult [facility] Department [place] [address] * (ABNORMAL) Basic metabolic panel (01/26/2024 9:20 PM CDT) Sodium 140 135 - 145 mmol/L Potassium, pl 4.6 3.3 - 4.9 mmol/L [facility] Chloride 105 97 - 110 mmol/L [facility] CO2 24 22 - 32 mmol/L [facility] Anion gap 11 2 - 15 mmol/L [facility] BUN 33(H) 6 - 25 mg/dL [facility] Creatinine 1.34(H) 0.60 - 1.10 mg/dL [facility] Glucose 138 70 - 199 mg/dL [facility] Comment: Interpretive Data Fasting glucose >/= [...] 2022. Calcium 8.5 8.5 - 10.3 mg/dL [facility] Blood 01/26/2024 9:20 PM CDT 01/26/2024 9:49 PM CDT Nii Garces NP LAB BLOOD ORDERABLES Final R esult Performing Organization Address [facility] Co de Phone Number [facility] [place] [address] * Phosphorus (01/26/2024 9:20 PM CDT) Phosphorus, pl 3.5 2.3 - 4.5 mg/dL Blood 01/26/2024 9:20 PM CDT 01/26/2024 9:49 PM CDT us Nii Garces NP LAB BLOOD ORDERABLES Final R esult Performing Organization Address [facility] Co de Phone Number [facility] [place] [address] * Magnesium (01/26/2024 9:20 PM CDT) Pathologist [facility] Magnesium 1.9 1.4 - 2.5 mg/dL Blood 01/26/2024 9:20 PM CDT 01/26/2024 9:49 PM CDT us Nii Garces NP LAB BLOOD ORDERABLES Final R esult Performing Organization Address [facility] Co de Phone Number [facility] [place] [address] * (ABNORMAL) POCT glucose (01/26/2024 7:51 PM CDT) Glucose, POC 201(H) 70 - 199 mg/dL Blood 01/26/2024 7:51 PM CDT 01/26/2024 7:51 PM CDT us Stan Treviño MD LAB POCT ORDERABLES - DEVICE Final Result Performing Organization Address City/[facility]/ZIP Co de Phone Number [facility] [place] [address] * (ABNORMAL) POCT glucose (01/26/2024 6:48 PM CDT) Glucose, POC 234(H) 70 - 199 mg/dL Blood 01/26/2024 6:48 PM CDT 01/26/2024 6:48 PM CDT Stan Treviño MD LAB POCT ORDERABLES - DEVICE Final Result Performing Organization Address [facility] Co de Phone Number [facility] [place] [address] * POCT glucose (01/26/2024 5:42 PM CDT) Glucose, POC 95 70 - 199 mg/dL Blood 01/26/2024 5:42 PM CDT 01/26/2024 5:42 PM CDT Stan Treviño MD LAB POCT ORDERABLES - DEVICE Final Result Performing Organization Address [facility] de Phone Number [facility] [place] [address] * (ABNORMAL) POCT glucose (01/26/2024 5:21 PM CDT) Glucose, POC 65(L) 70 - 199 mg/dL Blood 01/26/2024 5:21 PM CDT 01/26/2024 5:21 PM CDT Stan Treviño MD LAB POCT ORDERABLES - DEVICE Final Result Performing Organization Address [facility] [place] [address] * Infection Prevention Ema auris PCR, surveillance Axilla/Groin (01/26/2024 3:28 PM CDT) Ema auris DNA Not Detected Not Detected [facility] Comment: Interpretive Data Testing performed by [facility] using the Diasorin Liaison MDX Ema auris assay. ??This assay detects DNA from Ema auris using Real-Time PCR. ??This assay is laboratory developed and is not cleared by the [place] Food and Drug Administration. ??The performance characteristics have been verified by the [facility]. Interpretive data was last reviewed on 09/04/2023 Axilla/Groin 01/26/2024 3:28 PM CDT 01/26/2024 4:31 PM CDT Jean Paul Platt MD LAB MICROBIOLOGY - GENERAL OR DERABLES Final Result Performing Organization Address City/[facility] Co de Phone Number [facility] Department [place] [address] [facility] * POCT glucose (01/26/2024 12:02 PM CDT) Glucose, POC 150 70 - 199 mg/dL Blood 01/26/2024 12:0 2 PM CDT 01/26/2024 12:02 PM CDT Stan Treviño MD LAB POCT ORDERABLES - DEVICE Final Result Performing Organization Address [facility] Co de Phone Number [facility] Department [place] [address] * POCT glucose (01/26/2024 8:18 AM CDT) Glucose, POC 94 70 - 199 mg/dL Blood 01/26/2024 8:18 AM CDT 01/26/2024 8:18 AM CDT Stan Treviño MD LAB POCT ORDERABLES - DEVICE Final Result Performing Organization Address [facility] [place] [address] * POCT glucose (01/26/2024 6:38 AM CDT) Glucose, POC 111 70 - 199 mg/dL Blood 01/26/2024 6:38 AM CDT 01/26/2024 6:38 AM CDT Stan Treviño MD LAB POCT ORDERABLES - DEVICE Final Result Performing Organization Address City/[facility] [place] [address] * POCT glucose (01/26/2024 5:01 AM CDT) [facility] Signature Glucose, POC 107 70 - 199 mg/dL Blood 01/26/2024 5:01 AM CDT 01/26/2024 5:01 AM CDT Stan Treviño MD LAB POCT ORDERABLES - DEVICE Final Result Performing Organization Address [facility] Co de Phone Number [facility] [place] [address] * (ABNORMAL) POCT glucose (01/26/2024 4:31 AM CDT) Glucose, POC 64(L) 70 - 199 mg/dL Blood 01/26/2024 4:31 AM CDT 01/26/2024 4:31 AM CDT us Stan Treviño MD LAB POCT ORDERABLES - DEVICE Final Result Performing Organization Address [facility] Co de Phone Number [facility] [place] [address] * ECG 12 lead (01/26/2024 2:54 AM CDT) [facility] Ventricular Rate EKG/Min 74 BPM [facility] Atrial Rate 74 BPM [facility] SC-Interval (MSEC) 140 ms [facility] QRS-Interval (MSEC) 124 ms [facility] QT-Interval (MSEC) 444 ms [facility] QTc 492 ms [facility] P Saugerties 50 degrees [facility] R S[place]erties -57 degrees [facility] T Saugerties 27 degrees [facility] Diagnosis Sinus rhythm with frequent Premature ventricular complexes Right bundle branch block Left anterior fascicular block Bifascicular block Possible Lateral infarct (cited on or before 25-JAN-2024) Abnormal ECG When compared with ECG of 25-JAN-2024 13:07, (unconfirmed) Premature ventricular complexes are now Present Confirmed by MAHI RACHEL M.D ([id number]) on 01/27/2024 12:50:01 PM [facility] 01/26/2024 2:54 AM CDT 01/27/2024 12:50 PM CDT us Marisela Russell LACE PAPER MACHINE OPERATOR ECG ORDERABLES Final Res ult Performing Organization Address City/[facility]/ZIP Co de Phone Number [facility] * POCT glucose (01/26/2024 2:43 AM CDT) [facility] Glucose, POC 83 70 - 199 mg/dL Blood 01/26/2024 2:43 AM CDT 01/26/2024 2:43 AM CDT Stan Treviño MD LAB POCT ORDERABLES - DEVICE Final Result [facility] [place] [address] * (ABNORMAL) eGFR (01/25/2024 9:40 PM CDT) [facility] eGFR 43(L) >=60 mL/min/1. 73 m2 Comment: [...] NP LAB BLOOD ORDERABLES Final R esult [facility] Department of Laboratories [place], [place] [id number] * (ABNORMAL) CBC without differential (01/25/2024 9:40 PM CDT) WBC 8.6 3.8 - 9.9 K/cumm Hgb 8.5(L) 11.9 - 15.5 g/dL [facility] Hct 26.8(L) 35.6 - 45.5 % [facility] Plt 210 150 - 400 K/cumm [facility] MPV 11.3 9.1 - 12.3 fL [facility] RBC 2.95(L) 3.90 - 5.20 M/cumm [facility] MCV 90.8 81.3 - 96.4 fL [facility] MCH 28.8 27.1 - 33.3 pg [facility] MCHC 31.7(L) 32.3 - 35.7 g/dL [facility] RDW CV 13.8 11.1 - 14.9 % [facility] RDW SD 45.3 35.7 - 48.1 fL [facility] NRBC abs 0.00 0.00 - 0.01 K/cumm [facility] Blood 01/25/2024 9:40 PM CDT 01/25/2024 10:45 PM CDT Nii Garces NP LAB BLOOD ORDERABLES Final R esult [facility] [place] [address] * (ABNORMAL) Basic metabolic panel (01/25/2024 9:40 PM CDT) [facility] Sodium 141 135 - 145 mmol/L Potassium, pl 3.6 3.3 - 4.9 mmol/L [facility] Chloride 105 97 - 110 mmol/L [facility] CO2 26 22 - 32 mmol/L [facility] Anion gap 10 2 - 15 mmol/L [facility] BUN 36(H) 6 - 25 mg/dL [facility] Creatinine 1.30(H) 0.60 - 1.10 mg/dL [facility] Glucose 131 70 - 199 mg/dL [facility] Comment: Interpretive Data Fasting glucose >/= [...] 2022. Calcium 8.6 8.5 - 10.3 mg/dL [facility] Blood 01/25/2024 9:40 PM CDT 01/25/2024 10:45 PM CDT Nii Garces NP LAB BLOOD ORDERABLES Final R esult Performing Organization Address City/[facility] Co de Phone Number [facility] [place] [address] * Phosphorus (01/25/2024 9:40 PM CDT) Phosphorus, pl 4.2 2.3 - 4.5 mg/dL Blood 01/25/2024 9:40 PM CDT 01/25/2024 10:45 PM CDT Nii Garces NP LAB BLOOD ORDERABLES Final R esult Performing Organization Address City/[facility] Co de Phone Number [facility] [place] [address] * Magnesium (01/25/2024 9:40 PM CDT) Pathologist [facility] Magnesium 2.1 1.4 - 2.5 mg/dL Blood 01/25/2024 9:40 PM CDT 01/25/2024 10:45 PM CDT Nii Garces NP LAB BLOOD ORDERABLES Final R esult Performing Organization Address City/[facility] Co de Phone Number [facility] [place] [address] * POCT glucose (01/25/2024 9:39 PM CDT) Glucose, POC 146 70 - 199 mg/dL Blood 01/25/2024 9:39 PM CDT 01/25/2024 9:39 PM CDT Stan Treviño MD LAB POCT ORDERABLES - DEVICE Final Result Performing Organization Address [facility] Co de Phone Number [facility] [place] [address] * POCT glucose (01/25/2024 6:40 PM CDT) Glucose, POC 197 70 - 199 mg/dL Blood 01/25/2024 6:40 PM CDT 01/25/2024 6:40 PM CDT Stan Treviño MD LAB POCT ORDERABLES - DEVICE Final Result Performing Organization Address [facility] de Phone Number [facility] [place] [address] * POCT glucose (01/25/2024 5:32 PM CDT) Glucose, POC 111 70 - 199 mg/dL Blood 01/25/2024 5:32 PM CDT 01/25/2024 5:32 PM CDT Stan Treviño MD LAB POCT ORDERABLES - DEVICE Final Result Performing Organization Address [facility] Co de Phone Number [facility] [place] [address] * POCT glucose (01/25/2024 5:16 PM CDT) Glucose, POC 72 70 - 199 mg/dL Blood 01/25/2024 5:16 PM CDT 01/25/2024 5:16 PM CDT Stan Treviño MD LAB POCT ORDERABLES - DEVICE Final Result Performing Organization Address [facility] Co de Phone Number [facility] [place] [address] * (ABNORMAL) POCT glucose (01/25/2024 5:00 PM CDT) Glucose, POC 61(L) 70 - 199 mg/dL Blood 01/25/2024 5:00 PM CDT 01/25/2024 5:00 PM CDT us Stan Treviño MD LAB POCT ORDERABLES - DEVICE Final Result [facility] [place] [address] * ECG 12 lead (01/25/2024 1:07 PM CDT) Pathologist [facility] Ventricular Rate EKG/Min 74 BPM [facility] Atrial Rate 74 BPM [facility] SC-Interval (MSEC) 122 ms [facility] QRS-Interval (MSEC) 126 ms [facility] QT-Interval (MSEC) 442 ms [facility] QTc 490 ms [facility] P Saugerties 55 degrees [facility] R Saugerties -53 degrees [facility] T Saugerties 27 degrees [facility] Diagnosis Normal sinus rhythm Right bundle branch block Left anterior fascicular block Bifascicular block Possible Lateral infarct , age undetermined Abnormal ECG Confirmed by Anu CLARK, [facility] ([id number]) on 01/27/2024 2:47:59 PM [facility] 01/25/2024 1:07 PM CDT 01/27/2024 2:47 PM CDT us Marisela Russell NP ECG ORDERABLES Final Res ult [facility] * XR Chest Pa Lateral 2 Views [...] signed by: Robert Fiore M.D. Marisela Russell LACE PAPER MACHINE OPERATOR IMG XR PROCEDURES Final R esult * (ABNORMAL) POCT glucose (01/25/2024 11:10 AM CDT) Glucose, POC 221(H) 70 - 199 mg/dL Blood 01/25/2024 11:1 0 AM CDT 01/25/2024 11:10 AM CDT Stan Treviño MD LAB POCT ORDERABLES - DEVICE Final Result [facility] Department [place] [address] * POCT glucose (01/25/2024 8:28 AM CDT) Glucose, POC 124 70 - 199 mg/dL Blood 01/25/2024 8:28 AM CDT 01/25/2024 8:28 AM CDT Stan Treviño MD LAB POCT ORDERABLES - DEVICE Final Result Performing Organization Address [facility] Co de Phone Number [facility] [place] [address] * POCT glucose (01/25/2024 2:02 AM CDT) Glucose, POC 109 70 - 199 mg/dL Blood 01/25/2024 2:02 AM CDT 01/25/2024 2:02 AM CDT Stan Treviño MD LAB POCT ORDERABLES - DEVICE Final Result Performing Organization Address [facility] de Phone Number [facility] [place] [address] * (ABNORMAL) eGFR (01/24/2024 8:13 PM CDT) [...] ORDERABLES Final R esult Performing Organization Address City/[facility]/ZIP Co de Phone Number [facility] [place] [address] * (ABNORMAL) CBC without differential (01/24/2024 8:13 PM CDT) WBC 8.6 3.8 - 9.9 K/cumm Hgb 8.5(L) 11.9 - 15.5 g/dL [facility] Hct 27.3(L) 35.6 - 45.5 % [facility] Plt 169 150 - 400 K/cumm [facility] MPV 11.1 9.1 - 12.3 fL [facility] RBC 2.96(L) 3.90 - 5.20 M/cumm [facility] MCV 92.2 81.3 - 96.4 fL [facility] MCH 28.7 27.1 - 33.3 pg [facility] MCHC 31.1(L) 32.3 - 35.7 g/dL [facility] RDW CV 13.9 11.1 - 14.9 % [facility] RDW SD 46.5 35.7 - 48.1 fL [facility] NRBC abs 0.00 0.00 - 0.01 K/cumm [facility] Blood 01/24/2024 8:13 PM CDT 01/24/2024 8:53 PM CDT us Nii Garces NP LAB BLOOD ORDERABLES Final R esult [facility] Department [place] [address] * (ABNORMAL) Basic metabolic panel (01/24/2024 8:13 PM CDT) Pathologist [facility] Sodium 143 135 - 145 mmol/L Potassium, pl 4.0 3.3 - 4.9 mmol/L [facility] Chloride 108 97 - 110 mmol/L [facility] CO2 23 22 - 32 mmol/L [facility] Anion gap 12 2 - 15 mmol/L [facility] BUN 33(H) 6 - 25 mg/dL [facility] Creatinine 1.06 0.60 - 1.10 mg/dL [facility] Glucose 140 70 - 199 mg/dL [facility] Comment: Interpretive Data Fasting glucose >/= [...] 2022. Calcium 8.2(L) 8.5 - 10.3 mg/dL [facility] Blood 01/24/2024 8:13 PM CDT 01/24/2024 8:52 PM CDT Nii Garces NP LAB BLOOD ORDERABLES Final R esult [facility] [place] [address] * Phosphorus (01/24/2024 8:13 PM CDT) Pathologist [facility] Phosphorus, pl 3.1 2.3 - 4.5 mg/dL Blood 01/24/2024 8:13 PM CDT 01/24/2024 8:52 PM CDT us Nii Garces NP LAB BLOOD ORDERABLES Final R esult Performing Organization Address [facility] [place] [address] * Magnesium (01/24/2024 8:13 PM CDT) Magnesium 2.0 1.4 - 2.5 mg/dL Blood 01/24/2024 8:13 PM CDT 01/24/2024 8:52 PM CDT Nii Garces NP LAB BLOOD ORDERABLES Final R esult Performing Organization Address [facility] [place] [address] * POCT glucose (01/24/2024 7:27 PM CDT) Glucose, POC 161 70 - 199 mg/dL Blood 01/24/2024 7:27 PM CDT 01/24/2024 7:27 PM CDT Stan Treviño MD LAB POCT ORDERABLES - DEVICE Final Result Performing Organization Address [facility] Co de Phone Number [facility] [place] [address] * POCT glucose (01/24/2024 4:26 PM CDT) Glucose, POC 97 70 - 199 mg/dL Blood 01/24/2024 4:26 PM CDT 01/24/2024 4:26 PM CDT Stan Treviño MD LAB POCT ORDERABLES - DEVICE Final Result Performing Organization Address [facility] Co de Phone Number [facility] [place] [address] * XR Chest 1 View - in [...] - DEVICE Final Result Performing Organization Address [facility] de Phone Number [facility] [place] [address] * POCT glucose (01/24/2024 7:32 AM CDT) Glucose, POC 143 70 - 199 mg/dL Blood 01/24/2024 7:32 AM CDT 01/24/2024 7:32 AM CDT Stan Treviño MD LAB POCT ORDERABLES - DEVICE Final Result Performing Organization Address [facility] de Phone Number J[facility]GE [facility] [place] [address] * POCT glucose (01/24/2024 1:43 AM CDT) Glucose, POC 194 70 - 199 mg/dL Blood 01/24/2024 1:43 AM CDT 01/24/2024 1:43 AM CDT Stan Treviño MD LAB POCT ORDERABLES - DEVICE Final Result Performing Organization Address [facility] Phone [place] [facility] [address] * (ABNORMAL) eGFR (01/23/2024 10:31 PM CDT) [...] NP LAB BLOOD ORDERABLES Final R esult [facility] [place] [address] * (ABNORMAL) CBC without differential (01/23/2024 10:31 PM CDT) Pathologist [facility] WBC 7.2 3.8 - 9.9 K/cumm Hgb 8.4(L) 11.9 - 15.5 g/dL [facility] Hct 25.8(L) 35.6 - 45.5 % [facility] Plt 155 150 - 400 K/cumm [facility] MPV 11.5 9.1 - 12.3 fL [facility] RBC 2.84(L) 3.90 - 5.20 M/cumm [facility] MCV 90.8 81.3 - 96.4 fL [facility] MCH 29.6 27.1 - 33.3 pg [facility] MCHC 32.6 32.3 - 35.7 g/dL [facility] RDW CV 13.9 11.1 - 14.9 % [facility] RDW SD 46.9 35.7 - 48.1 fL [facility] NRBC abs 0.00 0.00 - 0.01 K/cumm [facility] Blood 01/23/2024 10:3 1 PM CDT 01/23/2024 10:59 PM CDT Nii Garces NP LAB BLOOD ORDERABLES Final R esult [facility] [place] [address] * (ABNORMAL) Basic metabolic panel (01/23/2024 10:31 PM CDT) Sodium 139 135 - 145 mmol/L Potassium, pl 4.4 3.3 - 4.9 mmol/L [facility] Chloride 106 97 - 110 mmol/L [facility] CO2 22 22 - 32 mmol/L [facility] Anion gap 11 2 - 15 mmol/L [facility] BUN 43(H) 6 - 25 mg/dL [facility] Creatinine 1.28(H) 0.60 - 1.10 mg/dL [facility] Glucose 242(H) 70 - 199 mg/dL [facility] Comment: Interpretive Data Fasting glucose >/= [...] 2022. Calcium 8.3(L) 8.5 - 10.3 mg/dL [facility] Blood 01/23/2024 10:3 1 PM CDT 01/23/2024 11:08 PM CDT Nii Garces NP LAB BLOOD ORDERABLES Final R esult Performing Organization Address City/[facility]/ZIP Co de Phone Number [facility] [place] [address] * Phosphorus (01/23/2024 10:31 PM CDT) Phosphorus, pl 2.6 2.3 - 4.5 mg/dL Blood 01/23/2024 10:3 1 PM CDT 01/23/2024 11:08 PM CDT Nii Garces NP LAB BLOOD ORDERABLES Final R esult Performing Organization Address [facility] Co de Phone Number [facility] [place] [address] * Magnesium (01/23/2024 10:31 PM CDT) Magnesium 2.2 1.4 - 2.5 mg/dL Blood 01/23/2024 10:3 1 PM CDT 01/23/2024 11:08 PM CDT Nii Garces NP LAB BLOOD ORDERABLES Final R esult Performing Organization Address [facility] Co de Phone Number [facility] [place] [address] * Type and screen (01/23/2024 10:31 PM CDT) ABO Rh A Positive Sergio, indirect Negative [facility] Blood 01/23/2024 10:3 1 PM CDT 01/23/2024 11:07 PM CDT Narrative [facility] - 01/24/2024 12:04 AM CDT Has the patient had Daratumumab or Isatuximab in the past 6 months?->Unknown Stan Treviño MD LAB BLOOD BANK TEST ORDERABLE S Final Result [facility] [place] [address] * (ABNORMAL) POCT glucose (01/23/2024 7:57 PM CDT) Glucose, POC 272(H) 70 - 199 mg/dL Blood 01/23/2024 7:57 PM CDT 01/23/2024 7:57 PM CDT Stan Treviño MD LAB POCT ORDERABLES - DEVICE Final Result Performing Organization Address [facility] Co de Phone Number [facility] Department [place] [address] * XR Chest 1 View - in [...] signed by: Guanakito Reed M.D. Nii Garces LACE PAPER MACHINE OPERATOR IMG XR PROCEDURES Final Resu lt * POCT glucose (01/23/2024 5:59 PM CDT) Glucose, POC 142 70 - 199 mg/dL Blood 01/23/2024 5:59 PM CDT 01/23/2024 5:59 PM CDT Stan Treviño MD LAB POCT ORDERABLES - DEVICE Final Result Performing Organization Address City/[facility] Co de Phone Number [facility] [place] [address] * POCT glucose (01/23/2024 5:36 PM CDT) Glucose, POC 97 70 - 199 mg/dL Blood 01/23/2024 5:36 PM CDT 01/23/2024 5:36 PM CDT Stan Treviño MD LAB POCT ORDERABLES - DEVICE Final Result Performing Organization Address City/[facility]/ZIP Co de Phone Number [facility] [place] [address] * (ABNORMAL) POCT glucose (01/23/2024 5:09 PM CDT) Glucose, POC 56(L) 70 - 199 mg/dL Blood 01/23/2024 5:09 PM CDT 01/23/2024 5:09 PM CDT us Stan Treviño MD LAB POCT ORDERABLES - DEVICE Final Result Performing Organization Address [facility] [place] [address] * (ABNORMAL) POCT glucose (01/23/2024 11:34 AM CDT) Glucose, POC 217(H) 70 - 199 mg/dL Blood 01/23/2024 11:3 4 AM CDT 01/23/2024 11:34 AM CDT us Stan Treviño MD LAB POCT ORDERABLES - DEVICE Final Result Performing Organization Address [facility] Phone Number [facility] [place] [address] * POCT glucose (01/23/2024 7:39 AM CDT) Glucose, POC 152 70 - 199 mg/dL Blood 01/23/2024 7:39 AM CDT 01/23/2024 7:39 AM CDT us Stan Treviño MD LAB POCT ORDERABLES - DEVICE Final Result Performing Organization Address [facility] Co de Phone Number [facility] [place] [address] * POCT glucose (01/23/2024 2:16 AM CDT) Glucose, POC 141 70 - 199 mg/dL Blood 01/23/2024 2:16 AM CDT 01/23/2024 2:16 AM CDT us Stan Treviño MD LAB POCT ORDERABLES - DEVICE Final Result Performing Organization Address [facility] Co de Phone Number [facility] Department [place] [address] * POCT glucose (01/22/2024 11:19 PM CDT) Pathologist [facility] Glucose, POC 183 70 - 199 mg/dL Blood 01/22/2024 11:1 9 PM CDT 01/22/2024 11:19 PM CDT Stan Treviño MD LAB POCT ORDERABLES - DEVICE Final Result Performing Organization Address [facility] Co de Phone Number [facility] MANS[facility] [place] [address] * (ABNORMAL) eGFR (01/22/2024 10:21 PM CDT) [facility] eGFR 39(L) >=60 mL/min/1. 73 m2 Comment: [...] NP LAB BLOOD ORDERABLES Final R esult [facility] [place] [address] * (ABNORMAL) CBC without differential (01/22/2024 10:21 PM CDT) Pathologist [facility] WBC 11.2(H) 3.8 - 9.9 K/cumm Hgb 8.7(L) 11.9 - 15.5 g/dL [facility] Hct 26.9(L) 35.6 - 45.5 % [facility] Plt 136(L) 150 - 400 K/cumm [facility] MPV 11.6 9.1 - 12.3 fL [facility] RBC 2.96(L) 3.90 - 5.20 M/cumm [facility] MCV 90.9 81.3 - 96.4 fL [facility] MCH 29.4 27.1 - 33.3 pg [facility] MCHC 32.3 32.3 - 35.7 g/dL [facility] RDW CV 14.3 11.1 - 14.9 % [facility] RDW SD 47.3 35.7 - 48.1 fL [facility] NRBC abs 0.00 0.00 - 0.01 K/cumm [facility] Blood 01/22/2024 10:2 1 PM CDT 01/22/2024 10:40 PM CDT Nii Garces NP LAB BLOOD ORDERABLES Final R esult [facility] [place] [address] * (ABNORMAL) Basic metabolic panel (01/22/2024 10:21 PM CDT) Sodium 139 135 - 145 mmol/L Potassium, pl 4.4 3.3 - 4.9 mmol/L [facility] Chloride 106 97 - 110 mmol/L [facility] CO2 23 22 - 32 mmol/L [facility] Anion gap 10 2 - 15 mmol/L [facility] BUN 43(H) 6 - 25 mg/dL [facility] Creatinine 1.41(H) 0.60 - 1.10 mg/dL [facility] Glucose 195 70 - 199 mg/dL [facility] Comment: Interpretive Data Fasting glucose >/= [...] 2022. Calcium 8.6 8.5 - 10.3 mg/dL [facility] Blood 01/22/2024 10:2 1 PM CDT 01/22/2024 10:41 PM CDT Nii Garces NP LAB BLOOD ORDERABLES Final R esult [facility] [place] [address] * (ABNORMAL) Phosphorus (01/22/2024 10:21 PM CDT) Phosphorus, pl 2.2(L) 2.3 - 4.5 mg/dL Blood 01/22/2024 10:2 1 PM CDT 01/22/2024 10:41 PM CDT Nii Ray Palmejar LACE PAPER MACHINE OPERATOR LAB BLOOD ORDERABLES Final R esult Performing Organization Address [facility] Co de Phone Number [facility] Department [place] [address] * Magnesium (01/22/2024 10:21 PM CDT) Magnesium 2.4 1.4 - 2.5 mg/dL Blood 01/22/2024 10:2 1 PM CDT 01/22/2024 10:41 PM CDT us Nii Garces LACE PAPER MACHINE OPERATOR LAB BLOOD ORDERABLES Final R esult Performing Organization Address [facility] Co de Phone Number [facility] [place] [address] * POCT glucose (01/22/2024 8:38 PM CDT) Glucose, POC 188 70 - 199 mg/dL Blood 01/22/2024 8:38 PM CDT 01/22/2024 8:38 PM CDT us Stan Treviño MD LAB POCT ORDERABLES - DEVICE Final Result Performing Organization Address [facility] Co de Phone Number [facility] [place] [address] * XR Chest 1 View - in [...] LAB POCT ORDERABLES - DEVICE Final Result [facility] Department [place] [address] * XR Chest 1 View (01/22/2024 2:43 [...] by: Erica Mustafa M.D. us Nii Garces LACE PAPER MACHINE OPERATOR IMG XR PROCEDURES Final Resu lt * POCT glucose (01/22/2024 12:03 PM CDT) Glucose, POC 196 70 - 199 mg/dL Blood 01/22/2024 12:0 3 PM CDT 01/22/2024 12:03 PM CDT Stan Treviño MD LAB POCT ORDERABLES - DEVICE Final Result Performing Organization Address [facility] Co de Phone Number [facility] [place] [address] * POCT glucose (01/22/2024 7:29 AM CDT) Glucose, POC 161 70 - 199 mg/dL Blood 01/22/2024 7:29 AM CDT 01/22/2024 7:29 AM CDT Stan Treviño MD LAB POCT ORDERABLES - DEVICE Final Result Performing Organization Address [facility] de Phone Number [facility] [place] [address] * (ABNORMAL) eGFR (01/22/2024 5:58 AM CDT) [...] 01/22/2024 6:26 AM CDT us Bri Lindo LACE PAPER MACHINE OPERATOR LAB BLOOD ORDERABLES Final Result Performing Organization Address City/[facility] Co de Phone Number [facility] [place] [address] * Phosphorus (01/22/2024 5:58 AM CDT) Phosphorus, pl 2.8 2.3 - 4.5 mg/dL Blood 01/22/2024 5:58 AM CDT 01/22/2024 6:26 AM CDT us Bri Lindo LACE PAPER MACHINE OPERATOR LAB BLOOD ORDERABLES Final Result Performing Organization Address [facility] de Phone Number [facility] [place] [address] * Magnesium (01/22/2024 5:58 AM CDT) Magnesium 2.3 1.4 - 2.5 mg/dL Blood 01/22/2024 5:58 AM CDT 01/22/2024 6:26 AM CDT us Bri Lindo LACE PAPER MACHINE OPERATOR LAB BLOOD ORDERABLES Final Result Performing Organization Address City/[facility] [place] [address] * (ABNORMAL) Basic metabolic panel (01/22/2024 5:58 AM CDT) Sodium 139 135 - 145 mmol/L Potassium, pl 4.5 3.3 - 4.9 mmol/L [facility] Chloride 106 97 - 110 mmol/L [facility] CO2 25 22 - 32 mmol/L [facility] Anion gap 8 2 - 15 mmol/L [facility] BUN 40(H) 6 - 25 mg/dL [facility] Creatinine 1.53(H) 0.60 - 1.10 mg/dL [facility] Glucose 162 70 - 199 mg/dL [facility] Comment: Interpretive Data Fasting glucose >/= [...] 2022. Calcium 8.9 8.5 - 10.3 mg/dL [facility] Blood 01/22/2024 5:58 AM CDT 01/22/2024 6:26 AM CDT us Bri Lindo NP LAB BLOOD ORDERABLES Final Result [facility] [place] [address] * (ABNORMAL) CBC without differential (01/22/2024 5:58 AM CDT) Pathologist [facility] WBC 14.0(H) 3.8 - 9.9 K/cumm Hgb 8.7(L) 11.9 - 15.5 g/dL [facility] Hct 26.9(L) 35.6 - 45.5 % [facility] Plt 134(L) 150 - 400 K/cumm [facility] MPV 11.9 9.1 - 12.3 fL [facility] RBC 2.88(L) 3.90 - 5.20 M/cumm [facility] MCV 93.4 81.3 - 96.4 fL [facility] MCH 30.2 27.1 - 33.3 pg [facility] [facility] MCHC 32.3 32.3 - 35.7 g/dL [facility] RDW CV 14.1 11.1 - 14.9 % [facility] RDW SD 48.2(H) 35.7 - 48.1 fL [facility] NRBC abs 0.00 0.00 - 0.01 K/cumm [facility] Blood 01/22/2024 5:58 AM CDT 01/22/2024 6:26 AM CDT Bri Lindo LACE PAPER MACHINE OPERATOR LAB BLOOD ORDERABLES Final Result Performing Organization Address [facility] Co de Phone Number [facility] Department [place] [address] * Infection Prevention Ema auris PCR, surveillance Axilla/Groin (01/22/2024 5:55 AM CDT) Pathologist [facility] Ema auris DNA Not Detected Not Detected [facility] Comment: Interpretive Data Testing performed by [facility]ious Disease [facility] using the [employer]ia[employer] MDX Ema auris assay. ??This assay detects DNA from Ema auris using Real-Time PCR. ??This assay is laboratory developed and is not cleared by the [facility] Food and Drug Administration. ??The performance characteristics have been verified by the [facility] Infectious Disease Laboratory. Interpretive data was last reviewed on 09/04/2023 Axilla/Groin 01/22/2024 5:55 AM CDT 01/22/2024 6:35 AM CDT Jean Paul Platt MD LAB MICROBIOLOGY - GENERAL OR DERABLES Final Result Performing Organization Address [facility]/ZIP Co de Phone Number [facility] Department [place] [address] [facility] * POCT glucose (01/22/2024 2:42 AM CDT) Pathologist [facility] Glucose, POC 165 70 - 199 mg/dL Blood 01/22/2024 2:42 AM CDT 01/22/2024 2:42 AM CDT us Stan Treviño MD LAB POCT ORDERABLES - DEVICE Final Result Performing Organization Address [facility] Co de Phone Number [facility] Department [place] [address] * POCT glucose (01/22/2024 12:53 AM CDT) Glucose, POC 167 70 - 199 mg/dL Blood 01/22/2024 12:5 3 AM CDT 01/22/2024 12:53 AM CDT Stan Treviño MD LAB POCT ORDERABLES - DEVICE Final Result Performing Organization Address [facility] de Phone Number [facility] Department [place] [address] * XR Chest 1 View - in [...] - DEVICE Final Result Performing Organization Address [facility] Co de Phone Number [facility] [place] [address] * (ABNORMAL) POCT glucose (01/21/2024 5:08 PM CDT) Glucose, POC 259(H) 70 - 199 mg/dL Blood 01/21/2024 5:08 PM CDT 01/21/2024 5:08 PM CDT Stan Treviño MD LAB POCT ORDERABLES - DEVICE Final Result Performing Organization Address [facility] Co de Phone Number [facility] Department [place] [address] * (ABNORMAL) POCT glucose (01/21/2024 11:42 AM CDT) Glucose, POC 228(H) 70 - 199 mg/dL Blood 01/21/2024 11:4 2 AM CDT 01/21/2024 11:42 AM CDT Stan Treviño MD LAB POCT ORDERABLES - DEVICE Final Result JORGE [facility] Department [place] [address] * ECG 12 lead (01/21/2024 11:01 AM CDT) Pathologist [facility] Ventricular Rate EKG/Min 98 BPM [facility] Atrial Rate 98 BPM [facility] SC-Interval (MSEC) 122 ms [facility] QRS-Interval (MSEC) 118 ms [facility] QT-Interval (MSEC) 388 ms [facility] QTc 495 ms [facility] P [place]erties 61 degrees [facility] R Saugerties -51 degrees [facility] T Saugerties 13 degrees [facility] Diagnosis Normal sinus rhythm with sinus arrhythmia Incomplete right bundle branch block Left anterior fascicular block Prolonged QT Possible Right ventricular hypertrophy When compared with ECG of 20-JAN-2024 17:04, (unconfirmed) ST no longer depressed in Lateral leads Confirmed by JEAN PAUL BUSTOS M.D ([id number]) on 01/22/2024 9:02:17 AM [facility] 01/21/2024 11:0 1 AM CDT 01/22/2024 9:02 AM CDT us Cinthia BATISTA ECG ORDERABLES Final Result [facility] * POCT glucose (01/21/2024 8:56 AM CDT) Glucose, POC 192 70 - 199 mg/dL Blood 01/21/2024 8:56 AM CDT 01/21/2024 8:56 AM CDT us Stan Treviño MD LAB POCT ORDERABLES - DEVICE Final Result CERNER [facility] Department [place] [address] * Critical Care (01/21/2024 6:00 AM CDT) [...] plan with the ICU team and other medical/insurance healthcare consultant staff, making frequent assessments and decisions [...] - DEVICE Final Result Performing Organization Address [facility] Co de Phone Number JORGE MANSFIELD [facility] [place] [address] * eGFR (01/21/2024 12:55 AM CDT) eGFR [...] ORDERABLES F inal Result Performing Organization Address [facility] Co de Phone Number JORGE MANSFIELD [facility] [place] [address] * Phosphorus (01/21/2024 12:55 AM CDT) [facility] Phosphorus, pl 4.1 2.3 - 4.5 mg/dL Comment:Repeated and Verifie d Blood 01/21/2024 12:5 5 AM CDT 01/21/2024 1:14 AM CDT Cinthia BATISTA LAB BLOOD ORDERABLES F inal Result Performing Organization Address City/[facility] Co de Phone Number [facility] Department [place] [address] * Magnesium (01/21/2024 12:55 AM CDT) [facility] Magnesium 2.3 1.4 - 2.5 mg/dL Blood 01/21/2024 12:5 5 AM CDT 01/21/2024 1:14 AM CDT Cinthia BATISTA LAB BLOOD ORDERABLES F inal Result Performing Organization Address City/[facility] de Phone Number [facility] [place] [address] * (ABNORMAL) Basic metabolic panel (01/21/2024 12:55 AM CDT) [facility] Sodium 146(H) 135 - 145 mmol/L Potassium, pl 4.8 3.3 - 4.9 mmol/L [facility] Chloride 114(H) 97 - 110 mmol/L [facility] CO2 21(L) 22 - 32 mmol/L [facility] Anion gap 11 2 - 15 mmol/L [facility] BUN 28(H) 6 - 25 mg/dL [facility] Creatinine 0.99 0.60 - 1.10 mg/dL [facility] Glucose 193 70 - 199 mg/dL [facility] Comment: Interpretive Data Fasting glucose >/= [...] 2022. Calcium 8.8 8.5 - 10.3 mg/dL [facility] Blood 01/21/2024 12:5 5 AM CDT 01/21/2024 1:14 AM CDT us Cinthia BATISTA LAB BLOOD ORDERABLES F inal Result [facility] Department [place] [address] * (ABNORMAL) CBC without differential (01/21/2024 12:55 AM CDT) Pathologist [facility] WBC 8.9 3.8 - 9.9 K/cumm Hgb 8.6(L) 11.9 - 15.5 g/dL [facility] Hct 26.4(L) 35.6 - 45.5 % [facility] Plt 132(L) 150 - 400 K/cumm [facility] MPV 11.0 9.1 - 12.3 fL [facility] RBC 2.88(L) 3.90 - 5.20 M/cumm [facility] MCV 91.7 81.3 - 96.4 fL [facility] MCH 29.9 27.1 - 33.3 pg [facility] MCHC 32.6 32.3 - 35.7 g/dL [facility] RDW CV 13.3 11.1 - 14.9 % [facility] RDW SD 44.6 35.7 - 48.1 fL [facility] NRBC abs 0.00 0.00 - 0.01 K/cumm [facility] Blood 01/21/2024 12:5 5 AM CDT 01/21/2024 1:14 AM CDT Cinthia BATISTA LAB BLOOD ORDERABLES F inal Result JORGE CRANE [facility] Department [place] [address] * XR Chest 1 View - in [...] * POCT glucose (01/20/2024 8:35 PM CDT) [facility] Signature Glucose, POC 121 70 - 199 mg/dL Blood 01/20/2024 8:35 PM CDT 01/20/2024 8:35 PM CDT us Stan Treviño MD LAB POCT ORDERABLES - DEVICE Final Result [facility] Department [place] [address] * XR Chest 1 View (01/20/2024 7:10 [...] plan with the ICU team and other medical/insurance healthcare consultant staff, making frequent assessments and decisions [...] POCT glucose (01/20/2024 6:06 PM CDT) Pathologist [facility] Glucose, POC 106 70 - 199 mg/dL Blood 01/20/2024 6:06 PM CDT 01/20/2024 6:06 PM CDT us Stan Treviño MD LAB POCT ORDERABLES - DEVICE Final Result JORGE [facility] Department [place] [address] * ECG 12 lead (01/20/2024 5:04 PM CDT) Ventricular Rate EKG/Min 94 BPM [facility] Atrial Rate 94 BPM [facility] SC-Interval (MSEC) 140 ms [facility] QRS-Interval (MSEC) 122 ms [facility] QT-Interval (MSEC) 412 ms [facility] QTc 515 ms [facility] P Saugerties 73 degrees [facility] R Saugerties -61 degrees [facility] T Saugerties 38 degrees [facility] Diagnosis Normal sinus rhythm Right bundle branch block Left anterior fascicular block Bifascicular block Abnormal ECG Confirmed by Anu CLARK [facility] ([id number]) on 01/22/2024 12:20:57 AM [facility] 01/20/2024 5:04 PM CDT 01/22/2024 12:20 AM CDT us Stan Treviño MD ECG ORDERABLES Final Result [facility] * Triglycerides (01/20/2024 4:52 PM CDT) Triglycerides [...] CDT 01/20/2024 5:20 PM CDT us Stan Treviño MD LAB BLOOD ORDERABLES Final Re sult Performing Organization Address [facility] Phone Number CERNER [facility] Department [place] [address] * eGFR (01/20/2024 4:52 PM CDT) eGFR [...] ORDERABLES F inal Result Performing Organization Address City/State/[facility] de Phone Number [facility] [place] [address] * aPTT (01/20/2024 4:52 PM CDT) aPTT [...] Re sult Performing Organization Address [facility] [place] [address] * (ABNORMAL) Protime-INR (01/20/2024 4:52 PM CDT) PT 13.3(H) 9.7 - 13.0 sec INR 1.23(H) 0.90 - 1.20 [facility] Comment: Interpretive data Oral anticoagulant therapeutic ranges: Venous thromboembolism prophylaxis or treatment: 2.0-3.0 CARDIOLOGY Standard range: 2.0-3.0 High-intensity range: 2.5-3.5 Refer to indication-specific guidelines for appropriate target ranges for prosthetic heart valve replacement. Current interpretive data was last revised on 2019. Blood 01/20/2024 4:52 PM CDT 01/20/2024 5:25 PM CDT Stan Treviño MD LAB BLOOD ORDERABLES Final Re sult Performing Organization Address [facility] de Phone Number [facility] [place] [address] * (ABNORMAL) CBC without differential (01/20/2024 4:52 PM CDT) Pathologist [facility] WBC 8.7 3.8 - 9.9 K/cumm Hgb 8.7(L) 11.9 - 15.5 g/dL [facility] Hct 26.5(L) 35.6 - 45.5 % [facility] Plt 143(L) 150 - 400 K/cumm [facility] MPV 11.1 9.1 - 12.3 fL [facility] RBC 2.98(L) 3.90 - 5.20 M/cumm [facility] MCV 88.9 81.3 - 96.4 fL [facility] MCH 29.2 27.1 - 33.3 pg [facility] MCHC 32.8 32.3 - 35.7 g/dL [facility] RDW CV 13.2 11.1 - 14.9 % [facility] RDW SD 42.7 35.7 - 48.1 fL [facility] NRBC abs 0.00 0.00 - 0.01 K/cumm [facility] Blood 01/20/2024 4:52 PM CDT 01/20/2024 5:14 PM CDT us Stan Treviño MD LAB BLOOD ORDERABLES Final Re sult [facility] [employer] [place], [place] [id number] * (ABNORMAL) Magnesium (01/20/2024 4:52 PM CDT) [facility] Magnesium 2.7(H) 1.4 - 2.5 mg/dL Blood 01/20/2024 4:52 PM CDT 01/20/2024 5:20 PM CDT us Cinthia BATISTA LAB BLOOD ORDERABLES F inal Result Performing Organization Address City/[facility]/ZIP Co de Phone Number [facility] [place] [address] * (ABNORMAL) Basic metabolic panel (01/20/2024 4:52 PM CDT) Sodium 147(H) 135 - 145 mmol/L Potassium, pl 3.8 3.3 - 4.9 mmol/L [facility] Chloride 114(H) 97 - 110 mmol/L [facility] CO2 23 22 - 32 mmol/L [facility] Anion gap 10 2 - 15 mmol/L [facility] BUN 28(H) 6 - 25 mg/dL [facility] Creatinine 0.94 0.60 - 1.10 mg/dL [facility] Glucose 107 70 - 199 mg/dL [facility] Comment: Interpretive Data Fasting glucose >/= [...] 2022. Calcium 9.2 8.5 - 10.3 mg/dL [facility] Blood 01/20/2024 4:52 PM CDT 01/20/2024 5:20 PM CDT Cinthia BATISTA LAB BLOOD ORDERABLES F inal Result [facility] Department [place] [address] * (ABNORMAL) Phosphorus (01/20/2024 4:52 PM CDT) Phosphorus, pl 1.8(L) 2.3 - 4.5 mg/dL Blood 01/20/2024 4:52 PM CDT 01/20/2024 5:20 PM CDT us Cinthia Chante Huelsmann PA LAB BLOOD ORDERABLES F inal Result JORGE [facility] Department [place] [address] * Critical Care (01/20/2024 4:47 PM CDT) [...] plan with the ICU team and other medical/insurance healthcare consultant staff, making frequent assessments and decisions [...] Chemistries, Arterial - (01/20/2024 4:43 PM CDT) [facility] pH, Art POC 7.40 7.35 - 7.45 pCO2, Art POC 33(L) 35 - 45 mmHg [facility] pO2, Art POC 116(H) 83 - 108 mmHg [facility] Na, POC 145 135 - 145 mmol/L [facility] K POC 3.6 3.3 - 4.9 mmol/L [facility] Comment: Interpretive Data Not all point of care methods assess for hemolysis. Confirm with instrument and retest K+ if not consistent with clinical signs and symptoms. Current Interpretive Data was last revised on 2023. Cl, POC 118(H) 97 - 110 mmol/L [facility] Ionized Ca, POC 5.08 4.50 - 5.10 mg/dL [facility] Glucose, POC 104 70 - 199 mg/dL [facility] Lactate, POC 1.0 0.7 - 2.2 mmol/L [facility] SO2 (kristy) arterial 100(H) 90 - 95 % [facility] Base excess, POC -3.8 mmol/L [facility] HCO3, Art POC 20 20 - 30 mmol/L [facility] Hct, POC 27.0(L) 36.3 - 45.3 % [facility] Total Hb, POC 9.1(L) 11.9 - 15.5 g/dL [facility] Blood 01/20/2024 4:43 PM CDT 01/20/2024 4:43 PM CDT Stan Treviño MD LAB POCT ORDERABLES - DEVICE Final Result [facility] [place] [address] * XR Chest 1 View (01/20/2024 3:15 [...] Hematocrit POC 24.5(L) 35.6 - 45.5 % [facility] Platelet POC 122(L) 150 - 400 K/cumm [facility] Blood 01/20/2024 2:56 PM CDT 01/20/2024 2:56 PM CDT Stan Treviño MD LAB POCT ORDERABLES - DEVICE Final Result [facility] [place] [address] * (ABNORMAL) POC Blood Gas and Chemistries, Arterial - (01/20/2024 2:17 PM CDT) pH, Art POC 7.36 7.35 - 7.45 pCO2, Art POC 37 35 - 45 mmHg [facility] pO2, Art POC 282(H) 83 - 108 mmHg [facility] Na, POC 145 135 - 145 mmol/L [facility] K POC 4.0 3.3 - 4.9 mmol/L [facility] Comment: Interpretive Data Not all point of care methods assess for hemolysis. Confirm with instrument and retest K+ if not consistent with clinical signs and symptoms. Current Interpretive Data was last revised on 2023. Cl, POC 117(H) 97 - 110 mmol/L [facility] Ionized Ca, POC 5.75(H) 4.50 - 5.10 mg/dL [facility] Glucose, POC 164 70 - 199 mg/dL [facility] Lactate, POC 1.4 0.7 - 2.2 mmol/L [facility] SO2 (kristy) arterial 100(H) 90 - 95 % [facility] Base excess, POC -4.2 mmol/L [facility] HCO3, Art POC 22 20 - 30 mmol/L [facility] Hct, POC 18.0(L) 36.3 - 45.3 % [facility] Total Hb, POC 6.0(L) 11.9 - 15.5 g/dL [facility] Blood 01/20/2024 2:17 PM CDT 01/20/2024 2:17 PM CDT Stan Treviño MD LAB POCT ORDERABLES - DEVICE Final Result Performing Organization Address [facility] de Phone Number [facility] [place] [address] * (ABNORMAL) POCT prothrombin time (01/20/2024 2:16 PM CDT) PT, POC 29.6(H) 11.7 - 16.6 sec INR, POC 2.3(H) 0.9 - 1.3 [facility] Blood 01/20/2024 2:16 PM CDT 01/20/2024 2:16 PM CDT Stan Treviño MD LAB POCT ORDERABLES - DEVICE Final Result Performing Organization Address [facility] de Phone Number [facility] [place] [address] * (ABNORMAL) POCT Partial thromboplastin time (PTT) (01/20/2024 2:15 PM CDT) [facility] APTT, POC 22.2(L) 32.5 - 46.1 sec Blood 01/20/2024 2:15 PM CDT 01/20/2024 2:15 PM CDT Stan Treviño MD LAB POCT ORDERABLES - DEVICE Final Result Performing Organization Address [facility] Co de Phone Number [facility] [place] [address] * (ABNORMAL) POCT hemoglobin, hematocrit and platelet count (01/20/2024 2:13 PM CDT) Hgb, POC 8.0(L) 11.9 - 15.5 g/dL Hematocrit POC 24.1(L) 35.6 - 45.5 % [facility] Platelet POC 102(L) 150 - 400 K/cumm [facility] Blood 01/20/2024 2:13 PM CDT 01/20/2024 2:13 PM CDT Stan Treviño MD LAB POCT ORDERABLES - DEVICE Final Result Performing Organization Address [facility] de Phone Number [facility] [place] [address] * POCT heparin/ACT CPB (01/20/2024 2:11 PM CDT) Heparin POC 0.0 units/mL ACT, CPB 112 112 - 174 sec [facility] Blood 01/20/2024 2:11 PM CDT 01/20/2024 2:11 PM CDT Stan Treviño MD LAB POCT ORDERABLES - DEVICE Final Result Performing Organization Address [facility] de Phone Number [facility] [place] [address] * (ABNORMAL) POCT heparin/ACT CPB (01/20/2024 1:45 PM CDT) [facility] Signature Heparin POC >4.7 units/mL ACT, CPB 603(H) 112 - 174 sec [facility] Blood 01/20/2024 1:45 PM CDT 01/22/2024 8:07 AM CDT Stan Treviño MD LAB POCT ORDERABLES - DEVICE Final Result Performing Organization Address [facility] [place] [address] * (ABNORMAL) POC Blood Gas and Chemistries, Arterial - (01/20/2024 1:44 PM CDT) [facility] Signature pH, Art POC 7.41 7.35 - 7.45 pCO2, Art POC 34(L) 35 - 45 mmHg [facility] pO2, Art POC 249(H) 83 - 108 mmHg [facility] Na, POC 144 135 - 145 mmol/L [facility] K POC 4.6 3.3 - 4.9 mmol/L [facility] Comment: Interpretive Data Not all point of care methods assess for hemolysis. Confirm with instrument and retest K+ if not consistent with clinical signs and symptoms. Current Interpretive Data was last revised on 2023. Cl, POC 116(H) 97 - 110 mmol/L [facility] Ionized Ca, POC 4.58 4.50 - 5.10 mg/dL [facility] Glucose, POC 169 70 - 199 mg/dL [facility] Lactate, POC 1.4 0.7 - 2.2 mmol/L [facility] SO2 (kristy) arterial 99(H) 90 - 95 % [facility] Base excess, POC -2.7 mmol/L [facility] HCO3, Art POC 22 20 - 30 mmol/L [facility] Hct, POC 24.0(L) 36.3 - 45.3 % [facility] Total Hb, POC 7.9(L) 11.9 - 15.5 g/dL [facility] Blood 01/20/2024 1:44 PM CDT 01/20/2024 1:44 PM CDT Stan Treviño MD LAB POCT ORDERABLES - DEVICE Final Result Performing Organization Address City/[facility]/ZIP Co de Phone Number [facility] [place] [address] * (ABNORMAL) POCT heparin/ACT CPB (01/20/2024 1:16 PM CDT) Heparin POC >4.7 units/mL ACT, CPB 603(H) 112 - 174 sec [facility] Blood 01/20/2024 1:16 PM CDT 01/22/2024 8:07 AM CDT Stan Treviño MD LAB POCT ORDERABLES - DEVICE Final Result [facility] Department [place] [address] * (ABNORMAL) POC Blood Gas and Chemistries, [...] POC 116(H) 97 - 110 mmol/L [facility] Ionized Ca, POC 4.68 4.50 - [...] POC 25.0(L) 36.3 - 45.3 % [facility] Total Hb, POC 8.4(L) 11.9 - 15.5 g/dL [facility] Blood 01/20/2024 1:15 PM CDT 01/20/2024 1:15 PM CDT us Stan Treviño MD LAB POCT ORDERABLES - DEVICE Final Result JORGE MANSFIELD [facility] Department [place] [address] * (ABNORMAL) POC Blood Gas and Chemistries, Arterial - (01/20/2024 12:50 PM CDT) pH, Art POC 7.29(L) 7.35 - 7.45 pCO2, Art POC 43 35 - 45 mmHg [facility] pO2, Art POC 232(H) 83 - 108 mmHg [facility] Na, POC 143 135 - 145 mmol/L [facility] K POC 4.5 3.3 - 4.9 mmol/L [facility] Comment: Interpretive Data Not all point of care methods assess for hemolysis. Confirm with instrument and retest K+ if not consistent with clinical signs and symptoms. Current Interpretive Data was last revised on 2023. Cl, POC 115(H) 97 - 110 mmol/L [facility] Ionized Ca, POC 4.80 4.50 - 5.10 mg/dL [facility] Glucose, POC 183 70 - 199 mg/dL [facility] Lactate, POC 1.2 0.7 - 2.2 mmol/L [facility] SO2 (kristy) arterial 99(H) 90 - 95 % [facility] Base excess, POC -5.5 mmol/L [facility] HCO3, Art POC 21 20 - 30 mmol/L [facility] Hct, POC 26.0(L) 36.3 - 45.3 % [facility] Total Hb, POC 8.5(L) 11.9 - 15.5 g/dL [facility] Blood 01/20/2024 12:5 0 PM CDT 01/20/2024 12:50 PM CDT Stan Treviño MD LAB POCT ORDERABLES - DEVICE Final Result [facility] One [facility] [place] [address] * (ABNORMAL) POCT heparin/ACT CPB (01/20/2024 12:48 PM CDT) Heparin POC 2.7 units/mL ACT, CPB 718(H) 112 - 174 sec [facility] Blood 01/20/2024 12:4 8 PM CDT 01/20/2024 12:48 PM CDT Stan Treviño MD LAB POCT ORDERABLES - DEVICE Final Result Performing Organization Address City/[facility]/ZIP Co de Phone Number [facility] [place] [address] * (ABNORMAL) POCT heparin/ACT CPB (01/20/2024 12:16 PM CDT) Pathologist [facility] Heparin POC 4.1 units/mL ACT, CPB 559(H) 112 - 174 sec [facility] Blood 01/20/2024 12:1 6 PM CDT 01/20/2024 12:16 PM CDT Stan Treviño MD LAB POCT ORDERABLES - DEVICE Final Result Performing Organization Address [facility] Co de Phone Number [facility] [place] [address] * (ABNORMAL) POC Blood Gas and Chemistries, Arterial - (01/20/2024 12:16 PM CDT) [facility] pH, Art POC 7.34(L) 7.35 - 7.45 pCO2, Art POC 40 35 - 45 mmHg [facility] pO2, Art POC 252(H) 83 - 108 mmHg [facility] Na, POC 143 135 - 145 mmol/L [facility] K POC 4.4 3.3 - 4.9 mmol/L [facility] Comment: Interpretive Data Not all point of care methods assess for hemolysis. Confirm with instrument and retest K+ if not consistent with clinical signs and symptoms. Current Interpretive Data was last revised on 2023. Cl, POC 114(H) 97 - 110 mmol/L [facility] Ionized Ca, POC 4.52 4.50 - 5.10 mg/dL [facility] Glucose, POC 199 70 - 199 mg/dL [facility] Lactate, POC 0.9 0.7 - 2.2 mmol/L [facility] SO2 (kristy) arterial 100(H) 90 - 95 % [facility] Base excess, POC -3.9 mmol/L [facility] HCO3, Art POC 22 20 - 30 mmol/L [facility] Hct, POC 26.0(L) 36.3 - 45.3 % [facility] Total Hb, POC 8.5(L) 11.9 - 15.5 g/dL [facility] Blood 01/20/2024 12:1 6 PM CDT 01/20/2024 12:16 PM CDT Stan Treviño MD LAB POCT ORDERABLES - DEVICE Final Result Performing Organization Address City/[facility]/ZIP Co de Phone Number [facility] [place] [address] * (ABNORMAL) POCT heparin/ACT CPB (01/20/2024 11:47 AM CDT) Heparin POC >4.7 units/mL ACT, CPB 733(H) 112 - 174 sec [facility] Blood 01/20/2024 11:4 7 AM CDT 01/22/2024 8:07 AM CDT Stan Treviño MD LAB POCT ORDERABLES - DEVICE Final Result Performing Organization Address City/[facility] Co de Phone Number [facility] [place] [address] * (ABNORMAL) POC Blood Gas and Chemistries, Arterial - (01/20/2024 11:46 AM CDT) pH, Art POC 7.28(L) 7.35 - 7.45 pCO2, Art POC 35 35 - 45 mmHg [facility] pO2, Art POC 310(H) 83 - 108 mmHg [facility] Na, POC 142 135 - 145 mmol/L [facility] K POC 4.4 3.3 - 4.9 mmol/L [facility] Comment: Interpretive Data Not all point of care methods assess for hemolysis. Confirm with instrument and retest K+ if not consistent with clinical signs and symptoms. Current Interpretive Data was last revised on 2023. Cl, POC 111(H) 97 - 110 mmol/L [facility] Ionized Ca, POC 4.06(L) 4.50 - 5.10 mg/dL [facility] Glucose, POC 183 70 - 199 mg/dL [facility] Lactate, POC 0.8 0.7 - 2.2 mmol/L [facility] SO2 (kristy) arterial 100(H) 90 - 95 % [facility] Base excess, POC -9.5 mmol/L [facility] HCO3, Art POC 18(L) 20 - 30 mmol/L [facility] Hct, POC 26.0(L) 36.3 - 45.3 % [facility] Total Hb, POC 8.8(L) 11.9 - 15.5 g/dL [facility] Blood 01/20/2024 11:4 6 AM CDT 01/20/2024 11:46 AM CDT Stan Treviño MD LAB POCT ORDERABLES - DEVICE Final Result [facility] [place] [address] * (ABNORMAL) POCT heparin/ACT CPB (01/20/2024 11:14 AM CDT) Pathologist [facility] Heparin POC 4.1 units/mL ACT, CPB 538(H) 112 - 174 sec [facility] Blood 01/20/2024 11:1 4 AM CDT 01/20/2024 11:14 AM CDT Stan Treviño MD LAB POCT ORDERABLES - DEVICE Final Result [facility] [place] [address] * POCT heparin dose response, CPB (01/20/2024 9:33 AM CDT) Baseline ACT POC 141 112 - 174 sec Heparin dose response slope POC 83 60 - 195 [facility] Projected Heparin Concentration POC 4.1 units/mL [facility] Blood 01/20/2024 9:33 AM CDT 01/20/2024 9:33 AM CDT us Stan Treviño MD LAB POCT ORDERABLES - DEVICE Final Result [facility] [place] [address] * (ABNORMAL) POC Blood Gas and Chemistries, Arterial - (01/20/2024 9:33 AM CDT) Pathologist [facility] pH, Art POC 7.39 7.35 - 7.45 pCO2, Art POC 32(L) 35 - 45 mmHg [facility] pO2, Art POC 342(H) 83 - 108 mmHg [facility] Na, POC 141 135 - 145 mmol/L [facility] K POC 3.7 3.3 - 4.9 mmol/L [facility] Comment: Interpretive Data Not all point of care methods assess for hemolysis. Confirm with instrument and retest K+ if not consistent with clinical signs and symptoms. Current Interpretive Data was last revised on 2023. Cl, POC 113(H) 97 - 110 mmol/L [facility] Ionized Ca, POC 4.83 4.50 - 5.10 mg/dL [facility] Glucose, POC 146 70 - 199 mg/dL [facility] Lactate, POC 1.0 0.7 - 2.2 mmol/L [facility] SO2 (kristy) arterial 100(H) 90 - 95 % [facility] Base excess, POC -4.8 mmol/L [facility] HCO3, Art POC 21 20 - 30 mmol/L [facility] Hct, POC 33.0(L) 36.3 - 45.3 % [facility] Total Hb, POC 11.0(L) 11.9 - 15.5 g/dL [facility] Blood 01/20/2024 9:33 AM CDT 01/20/2024 9:33 AM CDT Stan Treviño MD LAB POCT ORDERABLES - DEVICE Final Result Performing Organization Address [facility] Co de Phone Number [facility] [place] [address] * JULIANO Add-On For OR (01/20/2024 8:24 AM CDT) Narrative [facility] PROSOLV_CARDIOREPORT_CONS SCIMAGE - 01/20/2024 8:24 AM CDT Procedure Auto Finalized by Rule: ELENITA CV JULIANO DURING CASE OR Please see the Anesthesiologist's Procedure Note for the results. Diogo Smith MD CV ECHO PROCEDURES Final Result Performing Organization Address [facility] de Phone Number [facility] PROSOLV_CARDIOREPORT_CONS SCIMAGE * POCT glucose (01/20/2024 6:55 AM CDT) Glucose, POC 147 70 - 199 mg/dL Blood 01/20/2024 6:55 AM CDT 01/20/2024 6:55 AM CDT Stan Treviño MD LAB POCT ORDERABLES - DEVICE Final Result Performing Organization Address [facility] de Phone Number [facility] [place] [address] * Prepare RBC: 4 Units (01/20/2024 6:24 AM CDT) Product code [id number] [facility] Unit Number [id number] 6-E [facility] Product Blood Type APOS [facility] Dispense Status RETURNED [facility] Product code [id number] [facility] Unit Number [id number] 2-5 [facility] Product Blood Type APOS [facility] Dispense Status RETURNED [facility] Product code T9374X27 Unit Number [id number] 1-X [facility] Product Blood Type APOS [facility] Dispense Status RETURNED [facility] Product code [id number] [facility] Unit Number [id number] 7-H [facility] Product Blood Type APOS [facility] Dispense Status RETURNED [facility] Blood 01/20/2024 6:24 AM CDT 01/20/2024 6:23 AM CDT Narrative [facility] - 01/20/2024 4:29 PM CDT Specify Procedure:->CABG Are special requirements needed? 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, multiple vessel Type 2 diabetes mellitus (HCC) 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, with long-term current use of insulin, unspecified laterality (HCC) S/P CABG x 3 Postsurgical aortocoronary bypass status Coronary artery disease, unspecified vessel or lesion type, unspecified whether angina present, unspecified whether chinik or transplanted heart documented in this encounter Admitting Diagnoses Diagnosis Coronary artery disease Coronary atherosclerosis of unspecified type of vessel, chinik or graft Coronary artery disease due to [...] <90, HR <60 0828 (Given - Provider: Mairon Aaron)2109 (Given - Provider: Carmita Eden RN) [...] is undergoing Ring Surveillance for admission to [facility]. CAPRI Tolbert [facility] 01/21/2024 01/21/2024 02/04/2024 3:05 AM C DT documented as of this encounter Care Teams Repairer Engine Production Relationship Specialty Start Date End Date Elpidio Serrato MD PCP - General Internal Medicine 06/09/18 documented as of this encounter
--- OUTSIDE RECORDS SUMMARY | 2024-04-29 21:07 | XMS_ITS | Encounter Summary ---
Author Organization [facility] Healthcare Address [address] [place] [address] Care Team Providers Care Service Center Representative Name Role Phone Elpidio Serrato MD Primary Care Provider [phone] Reason for Visit * Auth/Cert (Routine) Specialty Diagnoses / Procedures Referred By Contac t Referred To Contact Diagnoses Coronary artery disease, unspecified vessel or lesion type, unspecified whether angina present, unspecified whether sun'aq or transplanted heart Coronary artery disease, unspecified vessel or lesion type, unspecified whether angina present, unspecified whether sun'aq or transplanted heart [I25.10] Procedures MA CABG W/ARTERIAL GRAFT THREE ARTERIAL GRAFTS MA NDSC SURG W/VIDEO-ASSISTED HARVEST VEIN CABG 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 x3 OROZCO VEIN 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 Referral ID Status Reason Start Date Expiration Date Visits Re quested Visits Authorized [id number] 1 1 Encounter Details Date Type Department Care Team (Late st Contact Info) Description 01/20/2024 8:05 AM CDT Anesthesia Event [facility] Operating Room [address] [place] [address] Diogo Smith MD [address] [place] [address] Chandrakant Saba MD [address] [place] [address] Anesthesia Record Procedure Summary Procedure Name Responsible [...] 01/20/24; 1120; Incision; Leg; Right, Upper, Lower; [facility] 01/20/24 1120 by Ben Hi Wound 01/20/24; 1127; Incision; Leg; Left, Upper, Lower; [facility] 01/20/24 1127 by Ben Hi Wound [...] Location: Pleural; Size: 28 Fr; Drainage System: [place]/nonsuction water seal drainage, Suction; Removal Date: 01/23/24; Removal Time: 1600 01/20/24 1432 by Ben Hi 01/23/24 1600 by Sonia Pinead RN Negative Pressure Wound Therapy 01/20/24; 1544; [...] on file Legal Sex Female 3:59 AM LAWN CARE PROFESSIONAL Gender Identity Female 05/13/2021 4:21 PM LAWN CARE PROFESSIONAL Sexual Orientation Not on file documented as of this encounter OR Notes * Anesthesia Postprocedure Evaluation - Chandrakant Saba MD - 01/20/2024 4:37 PM CDT Patient: Isabelle Lutz Procedure Summary Date: 01/20/24 Room / Location: [facility] OR [facility]OD 3 ROOM 309 / [facility] OR [facility] 3 Anesthesia Start: 804 Anesthesia Stop: 1636 Procedures: 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 X3 USING OROZCO AND LEFT & RIGHT SAPHENOUS ENDOVEIN HARVEST (Chest) 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 (Thigh) LEFT ATRIAL APPENDAGE EXCLUSION USING 40MM ATRICLIP FLEXV (Chest) ORIF OF STERNUM USING STERNALOCK 360 (Chest) Diagnosis: Coronary artery disease, unspecified vessel or lesion type, unspecified whether angina present, unspecified whether sun'aq or transplanted heart (Coronary artery disease, unspecified vessel or lesion type, unspecified whether angina present, unspecified whether sun'aq or transplanted heart [I25.10]) Surgeons: Stan Treviño [...] code: JULIANO placement and diagnostic exam, non-congenital (03735) ICD code(s) for medical necessity: R93.1 - [...] inferior: normal 16- Apical septal: normal 17- [place]: normal Valves: Aortic Valve: Annulus: normal Leaflet [...] and Planning Preoperative Evaluation Record Evaluation type/location: [facility] Planned procedure site: [facility] (Pods 2//[facility]) Date: 01/17/24 Anesthesia Evaluation Isabelle Lutz is a 73 y.o. female 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 x3 OROZCO VEIN (Chest) 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 (Thigh) Pre-Op Diagnosis Codes: * Coronary artery disease, unspecified vessel or lesion type, unspecified whether angina present, unspecified whether sun'aq or transplanted heart [I25.10] HISTORY HPI 73 [...] Other arrhythmia (RBBB + LAFB) Pertinent negatives: PR ; CABG ; systolic/diastolic dysfunction w/o CHF [...] Other + Diabetes mellitus ([employer]ex[employer]. Managed by electronic service technician.) - Diabetes type 2. Outpatient insulin use:current. [...] neck. Got some SOB when walking from traffic counter to CPAP. Starts with SOB then the [...] neck. Got some SOB when walking from traffic counter to CPAP. Starts with SOB then the [...] artery disease 12/18/2023 Coronary artery disease involving sun'aq heart 12/12/2023 Encounter for preprocedural cardiovascular examination 12/12/2023 ROSE (dyspnea on exertion) 11/19/2023 Stable angina (HCC) 11/16/2023 Hyperphosphatemia 11/15/2023 Abnormal stress echocardiogram 11/15/2023 Congestive heart failure (CMS/HCC) (HCC) 11/12/2023 Age-related osteoporosis without current pathological fracture 04/29/2023 Chronic kidney disease (CKD) stage G3b/A1, moderately decreased glomerular filtration rate (GFR) between 30-44 mL/min/1.73 square meter and albuminuria creatinine ratio less than 30 mg/g ([facility]) 12/25/2021 Vitamin D deficiency 04/01/2019 Clavicle enlargement [...] CATARACT EXTRACTION Right 06/14/2022 CE/IOL + goniotomy MA APPENDECTOMY unkown dates per pt MA DELIVERY ONLY Section - in 1972 and 1975 (Added by TW Conv) MA TENDON SHEATH INCISION Hand Incision Tendon Sheath [...] TR jet. Stress test(s): N/A Cardiac catheterization(s): [facility] - 11/25/23 DIAGNOSTIC IMPRESSION: Severe multivessel coronary [...] Kapoor CCP 1337 100 mcg Given Jason Kaporo CCP calcium chloride injection (g) Date/Time Rate/Dose/Volume [...] LINE PLACEMENT Routine 01/20/2024 12:44 PM CDT MA AN PROCEDURE PLACEHOLDER Routine 01/20/2024 12:17 PM [...] MD ANESTHESIA ORDERABLES Final Res ult * MA AN PROCEDURE PLACEHOLDER (01/20/2024 12:17 PM CDT) [...] code: JULIANO placement and diagnostic exam, non-congenital (40281) ICD code(s) for medical necessity: R93.1 - [...] inferior: normal 16- Apical septal: normal 17- [place]: normal Valves: Aortic Valve: Annulus: normal Leaflet [...] 01/20/2024 documented in this encounter Care Teams Service Center Representative Relationship Specialty Start Date End Date Elpidio Serrato MD PCP - General Internal Medicine 06/09/18 documented as of this encounter
--- OUTSIDE RECORDS SUMMARY | 2024-04-29 21:08 | XMS_ITS | Encounter Summary ---
Author Organization [facility] Healthcare Address [address] [place] [address] Care Team Providers Care Mail Courier Name Role Phone Elpidio Serrato MD Primary Care Provider [phone] Reason for Visit * Auth/Cert (Routine) Specialty Diagnoses / Procedures Referred By Contac t Referred To Contact Diagnoses Coronary artery disease, unspecified vessel or lesion type, unspecified whether angina present, unspecified whether [place] or transplanted heart Coronary artery disease, unspecified vessel or lesion type, unspecified whether angina present, unspecified whether [place] or transplanted heart [I25.10] Procedures NC CABG W/ARTERIAL GRAFT THREE ARTERIAL GRAFTS NC NDSC SURG W/VIDEO-ASSISTED HARVEST VEIN CABG 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 x3 OROZCO VEIN 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 Referral ID Status Reason Start Date Expiration Date Visits Re quested Visits Authorized [id number] 1 1 Encounter Details Date Type Department Care Team (Latest Contact Info) Description 01/17/2024 12:50 PM CDT - 01/17/2024 11:59 PM CDT Hospital Encounter [facility] [address] [place] [address] Pre-operative exam Discharge Disposition: Discharge to home [...] on file Legal Sex Female 3:59 AM LOG INSPECTOR Gender Identity Female 05/13/2021 4:21 PM LOG INSPECTOR Sexual Orientation Not on file documented [...] signed by: Erica Mustafa M.D. Aruna Land ENVIRONMENTAL COMPLIANCE MANAGER IMG XR PROCEDURES Final Resul t documented in this encounter Visit Diagnoses Diagnosis Pre-operative exam Unspecified pre-operative examination documented in this encounter Care Teams Mail Courier Relationship Specialty Start Date End Date Elpidio Serrato MD PCP - General Internal Medicine 06/09/18 documented as of this encounter
--- OUTSIDE RECORDS SUMMARY | 2024-04-29 21:09 | XMS_ITS | Encounter Summary ---
Author Organization [facility] Address [address] [place] [address] Care Team Providers Care Wind Turbine Mechanical Engineer Name Role Phone Elpidio Serrato MD Primary Care Provider [phone] Reason for Referral * Cardiology (Routine) - Authorized Specialty Diagnoses / Procedures Referred By Constantino alvarado Referred To Contact Diagnoses Preoperative testing Procedures ECG 12 lead Aruna Land NP [address] [facility] [phone] [place] [address] Phone: tel: fax: [facility] [address] [place] [address] Referral ID Status Reason Start Date Expiration Date V isits Requested Visits Authorized [id number] Authorized 01/17/2024 02/15/2025 1 1 Reason for Visit * Auth/Cert (Routine) Specialty Diagnoses / Procedures Referred By Contqi t Referred To Contact Diagnoses Coronary artery disease, unspecified vessel or lesion type, unspecified whether angina present, unspecified whether kotlik or transplanted heart Coronary artery disease, unspecified vessel or lesion type, unspecified whether angina present, unspecified whether kotlik or transplanted heart [I25.10] Procedures FL CABG W/ARTERIAL GRAFT THREE ARTERIAL GRAFTS FL NDSC SURG W/VIDEO-ASSISTED HARVEST VEIN CABG 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 x3 OROZCO VEIN 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 Referral ID Status Reason Start Date Expiration Date Visits Re quested Visits Authorized [id number] 1 1 Encounter Details Date Type Department Care Team (Latest Contact Info) Description 01/17/2024 11:00 AM CDT Pre-Admission Testing [facility] for Preoperative Assessment and Planning [facility] ([facility]) [address] [place] [id number] Pre-operative exam (Primary Dx); Preoperative testing; Chronic [...] 01/20/24; 1120; Incision; Leg; Right, Upper, Lower; [facility] SITE 01/20/24 1120 by [...] Location: Pleural; Size: 28 Fr; Drainage System: [place]/nonsuction water seal drainage, Suction; Removal Date: 01/23/24; Removal Time: 1600 01/20/24 1432 by Ben Hi 01/23/24 1600 by oSnia Pineda RN Negative Pressure Wound Therapy 01/20/24; 1544; Anterior; Sternum; 01/26/24; 1514; Therapy completed 01/20/24 1544 by Ben Hi 01/26/24 1514 by Mega Wharotn RN documented in this encounter Social History [...] on file Legal Sex 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 Gender Identity Female 05/13/2021 4:21 PM LABEL PRINTING MACHINIST Sexual Orientation Not on file documented as [...] Planning Perioperative Nursing Note CPAP Clinic at [facility] ([facility]) Date: 01/17/24 This assessment was completed with [...] for the 01/17/24 encounter (Pre-Admission Testing) with [facility] CPAP NURSE Medication Sig Dispense Refill acetaminophen [...] Single Piece Envista 6.0x12.5 +18.0d Hydrophobic Acrylic [id number] - [id number] - [id number] - Implanted (Right) Lens Inventory item: [employer] Lens Iol Posterior Biconvex Optic Single Piece Envista 6.0x12.5 +18.0d Hydrophobic Acrylic [id number] Model/Cat number: [id number] Serial number: [id number] Parole Hearing Officer: [employer] Device identifier: [id number] Device identifier type: GS1 As of 06/14/2022 Status: Implanted [employer] Lens Iol Posterior Biconvex Optic Single Piece Envista 6.0x12.5 +18.0d Hydrophobic Acrylic [id number] - [id number] - [id number] - Implanted (Left) Eye Inventory item: [employer] Lens Iol Posterior Biconvex Optic Single Piece Envista 6.0x12.5 +18.0d Hydrophobic Acrylic [id number] Model/Cat number: [id number] Serial number: [id number] Parole Hearing Officer: [employer] Lot number: [id number] Device identifier: [id number] Device identifier type: GS1 As of 08/16/2022 [...] family Information Provided on Healthcare Directives: No Communication/Behavioral Science Chair Needs Communication Needs: Glasses Assistive Devices/DME: Eyeglasses, Cane Hearing - Right Ear: Functional Hearing - Left Ear: Functional Discharge Planning Type of Residence: Private residence Living Arrangements: Children Support Systems: Children Assistance Needed: DOS- daughter with her Patient expects to be discharged to: Private residence [employer] NO ADDITIONAL COMMENTS/ FOLLOW UP * Pre-Procedure [...] Remove nail coverings, artificial nails and nail estonian prior to the day of surgery. This is to lower your risk of infection and to allow the day of surgery team to monitor your oxygen levels. You should leave your valuables and any jewelry at home. No metal or piercings are allowed in the operating room. You should bring your insurance card, a photo ID (example: Communication Technician's License) and a method of payment for [...] patients should read below section: Information on [facility] the [facility]: Please view [email or web address] (Patient & Visitor Information) for additional details regarding Advanced Directive forms, AWARE, directions, parking information, lodging, Internet access, dining and more. For MyChart information, to activate account or password recovery, please go to [email or web address] or call [phone] (toll-free: [phone]), Sat- Saturday 8am-5pm. Information for Suicide Prevention: National Suicide Prevention Lifeline (2-847-969-YJGP (5113)) orcall or text 008. Chat resources: BrightScope.org. Surgery Times: For patients having surgery @ [facility] or [facility] ([facility]), if your surgeon's office has not notified you of your surgery time by NOON THE BUSINESS DAY BEFORE your surgery, please call [phone] and ask for your surgeon's office Dr. [...] of surgery * If having surgery at [facility], you may want to bring a credit card if you want to use our Mobile Pharmacy for your discharge medications. Mobile pharmacy is not available at [facility], the Orthopedic Center, or the [facility] for [facility]. If you are a smoker: * You should prepare for your surgery and recovery well ahead of time. Stop smoking at least 2 weeks before surgery to help prevent infection and help your body recover faster. Ask your surgeon for tools to help you quit or call 5-930-AFUITYA ( ). Visit Smokefree.gov for more information. [...] ur 0-2 0 - 2 /HPF [facility] Epithelial cells, squamous, ur 1-5 0 - 5 /HPF [facility] Bacteria, ur 1+(A) [facility] Mucous, ur Present(A) [facility] Hyaline casts, ur 6-10 0 - 10 /LPF [facility] Culture Reflex Comment Reflex conditions for urine culture (WBC >10) not met. [facility] Urine, clean voided 01/17/2024 12:58 PM CDT 01/17/2024 1:30 PM CDT us Aruna Land COOKING INSTRUCTOR LAB URINE ORDERABLES Final Re sult [facility] [place] [address] * (ABNORMAL) eGFR (01/17/2024 12:58 PM CDT) [...] 01/17/2024 1:32 PM CDT us Aruna Land COOKING INSTRUCTOR LAB BLOOD ORDERABLES Final Re sult [facility] [place] [address] * Differential, auto (01/17/2024 12:58 PM CDT) Neutrophil abs 5.4 1.5 - 6.5 K/cumm Imm gran abs 0.0 0.0 - 0.1 K/cumm [facility] Lymphocyte abs 2.3 0.8 - 3.3 K/cumm [facility] Monocyte abs 0.7 0.2 - 0.8 K/cumm [facility] Eosinophil abs 0.1 0.0 - 0.5 K/cumm [facility] Basophil abs 0.0 0.0 - 0.1 K/cumm [facility] Neutrophil pct 63.2 % [facility] Comment: Interpretive Data Percent cell count reference ranges are not reported, since discordance with absolute values may lead to misinterpretation of CBC data. Current Interpretive Data was last revised on 2017. Imm gran pct 0.1 % [facility] Comment: Interpretive Data Percent cell count reference ranges are not reported, since discordance with absolute values may lead to misinterpretation of CBC data. Current Interpretive Data was last revised on 2017. Lymphocyte pct 27.1 % [facility] Comment: Interpretive Data Percent cell count reference ranges are not reported, since discordance with absolute values may lead to misinterpretation of CBC data. Current Interpretive Data was last revised on 2017. Monocyte pct 8.3 % [facility] Comment: Interpretive Data Percent cell count reference ranges are not reported, since discordance with absolute values may lead to misinterpretation of CBC data. Current Interpretive Data was last revised on 2017. Eosinophil pct 0.9 % [facility] Comment: Interpretive Data Percent cell count reference ranges are not reported, since discordance with absolute values may lead to misinterpretation of CBC data. Current Interpretive Data was last revised on 2017. Basophil pct 0.4 % [facility] Comment: Interpretive Data Percent cell count reference ranges are not reported, since discordance with absolute values may lead to misinterpretation of CBC data. Current Interpretive Data was last revised on 2017. Blood 01/17/2024 12:5 8 PM CDT 01/17/2024 1:34 PM CDT us Aruna Land COOKING INSTRUCTOR LAB BLOOD ORDERABLES Final Re sult [facility] [place] [address] * (ABNORMAL) Urinalysis reflex to microscopic and culture Urine, clean voided (01/17/2024 12:58 PM CDT) Color, ur Straw Yellow Clarity, ur Clear Clear [facility] Specific gravity, ur 1.013 1.003 - 1.030 [facility] pH, urine 5.5 [facility] Comment: Interpretive Data ? Urine pH is affected by diet, medications, systemic acid-base disturbances, and renal tubular function. ??pH may affect urinary stone formation. ??For example, urine pH below 6.0 may help reduce the tendency for calcium phosphate stones and pH greater than 6.0 may reduce the tendency for uric acid stone formation. Source: [facility] Tolerx Current Interpretive Data was last revised on 2017 Protein, ur ql Negative Negative [facility] Glucose, ur ql Negative Negative [facility] Ketones, ur Negative Negative [facility] Bilirubin, ur Negative Negative [facility] Blood, ur Negative Negative [facility] Urobilinogen, ur <2.0 <2.0 mg/dL [facility] Nitrite, ur Positive(A) Negative [facility] Leukocyte esterase, ur 2+(A) Negative [facility] UA reflex comment Reflex to microscopic UA will be performed. [facility] Urine, clean voided 01/17/2024 12:58 PM CDT 01/17/2024 1:30 PM CDT us Aruna Land COOKING INSTRUCTOR LAB MICROBIOLOGY - GENERAL OR DERABLES Final Result Performing Organization Address [facility] de Phone Number [facility] Department [place] [address] * CPAP aPTT algorithm (01/17/2024 12:58 PM CDT) aPTT 28 28 - 38 sec Comment: Interpretive Data Heparin therapeutic range: 66.0 - 100.0 seconds. Range based on correlation with therapeutic heparin activity range of 0.3 - 0.7 Units/mL. Current interpretive data was last revised on 2023. Blood 01/17/2024 12:5 8 PM CDT 01/17/2024 12:58 PM CDT us Aruna Land COOKING INSTRUCTOR LAB BLOOD ORDERABLES Final Re sult Performing Organization Address [facility] de Phone Number [facility] [place] [address] * Protime-INR (01/17/2024 12:58 PM CDT) PT 11.0 9.7 - 13.0 sec INR 1.02 0.90 - 1.20 [facility] Comment: Interpretive data Oral anticoagulant therapeutic ranges: Venous thromboembolism prophylaxis or treatment: 2.0-3.0 CARDIOLOGY Standard range: 2.0-3.0 High-intensity range: 2.5-3.5 Refer to indication-specific guidelines for appropriate target ranges for prosthetic heart valve replacement. Current interpretive data was last revised on 2019. Blood 01/17/2024 12:5 8 PM CDT 01/17/2024 12:58 PM CDT Aruna Land COOKING INSTRUCTOR LAB BLOOD ORDERABLES Final Re sult Performing Organization Address [facility] de Phone Number [facility] Department [place] [address] * TYPE AND SCREEN 14 DAY (01/17/2024 12:58 PM CDT) Pathologist [facility] ABO Rh A Positive Sergio, indirect Negative [facility] Blood 01/17/2024 12:5 8 PM CDT 01/17/2024 1:38 PM CDT Narrative [facility] - 01/17/2024 2:44 PM CDT Is this test being ordered in advance for a procedure?->Yes Expected date of procedure:->01/20/24 Has the patient been transfused in the past 3 months?->No Has the patient been in the past 3 months?->No Aruna Land NP LAB BLOOD BANK TEST ORDERABLE S Final Result [facility] Department [place] [address] * (ABNORMAL) CBC with auto differential (01/17/2024 12:58 PM CDT) [facility] WBC 8.5 3.8 - 9.9 K/cumm Hgb 12.2 11.9 - 15.5 g/dL [facility] Hct 38.1 35.6 - 45.5 % [facility] Plt 231 150 - 400 K/cumm [facility] MPV 10.8 9.1 - 12.3 fL [facility] RBC 4.21 3.90 - 5.20 M/cumm [facility] MCV 90.5 81.3 - 96.4 fL [facility] MCH 29.0 27.1 - 33.3 pg [facility] MCHC 32.0(L) 32.3 - 35.7 g/dL [facility] RDW CV 13.2 11.1 - 14.9 % [facility] RDW SD 43.7 35.7 - 48.1 fL [facility] NRBC abs 0.00 0.00 - 0.01 K/cumm [facility] Blood 01/17/2024 12:5 8 PM CDT 01/17/2024 1:34 PM CDT us Aruna Land COOKING INSTRUCTOR LAB BLOOD ORDERABLES Final Re sult [facility] Department [place] [address] * (ABNORMAL) Comprehensive metabolic panel (01/17/2024 12:58 PM CDT) Sodium 145 135 - 145 mmol/L Potassium, pl 3.5 3.3 - 4.9 mmol/L [facility] Chloride 106 97 - 110 mmol/L [facility] CO2 25 22 - 32 mmol/L [facility] Anion gap 14 2 - 15 mmol/L [facility] BUN 27(H) 6 - 25 mg/dL [facility] Creatinine 1.05 0.60 - 1.10 mg/dL [facility] Glucose 98 70 - 199 mg/dL [facility] Comment: Interpretive Data Fasting glucose [...] Calcium 9.8 8.5 - 10.3 mg/dL [facility] Bilirubin, total 0.6 0.1 - 1.2 mg/dL [facility] Protein, pl 7.3 6.5 - 8.5 g/dL [facility] Albumin 4.4 3.5 - 5.0 g/dL [facility] Alk phos 104 40 - 130 Units/L [facility] ALT 23 7 - 45 Units/L [facility] AST 28 10 - 45 Units/L [facility] Blood 01/17/2024 12:5 8 PM CDT 01/17/2024 1:32 PM CDT Aruna Land COOKING INSTRUCTOR LAB BLOOD ORDERABLES Final Re sult Performing Organization Address [facility] Co de Phone Number [facility] [place] [address] * ECG 12 lead (01/17/2024 11:06 AM CDT) Ventricular Rate EKG/Min 78 BPM [facility] Atrial Rate 78 BPM [facility] FL-Interval (MSEC) 128 ms [facility] QRS-Interval (MSEC) 128 ms [facility] QT-Interval (MSEC) 440 ms [facility] QTc 501 ms [facility] P [place] 69 degrees [facility] R [place] -64 degrees [facility] T [place] 15 degrees [facility] Diagnosis Sinus rhythm with occasional Premature ventricular complexes Possible Left atrial enlargement Right bundle branch block Left anterior fascicular block Bifascicular block Abnormal ECG When compared with ECG of 19-JUN-2016 03:45, Right bundle branch block is new Confirmed by MAHI RACHEL M.D ([id number]) on 01/17/2024 1:22:18 PM [facility] 01/17/2024 11:0 6 AM CDT 01/17/2024 1:22 PM CDT Aruna Land COOKING INSTRUCTOR ECG ORDERABLES Final Result Performing Organization Address [facility] Co de Phone Number [facility] documented in this encounter Visit Diagnoses [...] 01/28/2024 added in this encounter Care Teams Wind Turbine Mechanical Engineer Relationship Specialty Start Date End Date Elpidio Serrato MD PCP - General Internal Medicine 06/09/18 documented as of this encounter
--- OUTSIDE RECORDS SUMMARY | 2024-04-29 21:10 | XMS_ITS | Encounter Summary ---
Author Organization [facility] Address [address] [facility] [address] [place] [address] Phone Care Team Providers Care Automotive Airconditioning Mechanic Name Role Phone Elpidio Serrato MD Primary Care Provider [phone] Encounter Details Date Type Department Care Team (Late st Contact Info) Description 12/19/2023 Orders Only [facility] Cardiothoracic Surgery [address] [facility] Advanced Medicine 8th Floor [address] [place], [place] [address] Columba Leslie PRODUCTION OPERATIONS INSPECTOR [address] [facility] [id number] [place] [address] Social History Tobacco Use Types Packs/Day Years [...] on file Legal Sex Female 3:59 AM LAB TECH Gender Identity Female 05/13/2021 4:21 PM LAB TECH Sexual Orientation Not on file documented as [...] on filedocumented in this encounter Care Teams Automotive Airconditioning Mechanic Relationship Specialty Start Date End Date Elpidio Serrato MD PCP - General Internal Medicine 06/09/18 documented as of this encounter
--- OUTSIDE RECORDS SUMMARY | 2024-04-29 21:10 | XMS_ITS | Encounter Summary ---
Author Organization [facility] Address [address] [place] [address] Phone Care Team Providers Care It Infrastructure Architect Name Role Phone Elpidio Serrato MD Primary Care Provider [phone] Reason for Visit * Reason Onset Date Comments CMN 12/20/2023 [facility] Encounter Details Date Type Department Care Team (Late st Contact Info) Description 12/20/2023 Telephone [facility] Endocrinology Metabolism and Lipid [address] 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 See Media. documented in this encounter Plan of Treatment Not on file documented as of this encounter Visit Diagnoses Not on filedocumented in this encounter Care Teams It Infrastructure Architect Relationship Specialty Start Date End Date Elpidio Serrato MD PCP - General Internal Medicine 06/09/18 documented as of this encounter
--- OUTSIDE RECORDS SUMMARY | 2024-04-29 21:11 | XMS_ITS | Encounter Summary ---
Author Organization [facility] Address [address] [place] [address] Phone Care Team Providers Care Ski Lift Mechanic Name Role Phone Elpidio Serrato MD Primary Care Provider [phone] Encounter Details Date Type Department Care Team (Late st Contact Info) Description 12/17/2023 Telephone [facility] Cardiology [address] [facility] [address] [place] [address] Kvng Gibson MD [address] [facility] [address] [place] [address] Social History Tobacco Use Types [...] file Legal 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 Gibson's recommendations; she verbalizes understanding. Pt [facility] to [facility] due to distance. She will decide [...] after heart surgery Thanks, Kvng Gibson MD, [facility] Director Of Sales Marketingpipe processor documented in this encounter Plan of Treatment Not on file documented as of this encounter Visit Diagnoses Not on filedocumented in this encounter Care Teams Ski Lift Mechanic Relationship Specialty Start Date End Date Elpidio Serrato MD PCP - General Internal Medicine 06/09/18 documented as of this encounter
--- OUTSIDE RECORDS SUMMARY | 2024-04-29 21:11 | XMS_ITS | Encounter Summary ---
Author Organization [facility] Healthcare Address [address] [place] [address] Care Team Providers Care Spiritual Minister Name Role Phone Elpidio Serrato MD Primary Care Provider [phone] Encounter Details Date Type Department Care Team (Late st Contact Info) Description 12/12/2023 9:00 AM CDT Lab [facility] (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 Gender Identity Female 05/13/2021 4:21 PM MARKET RELATIONSHIP MANAGER Sexual Orientation Not on file documented as of this encounter Plan of Treatment Not on file documented as of this encounter Procedures Procedure Name Priority Date/Time Associated Diagnosis Comments EGFR Routine 12/12/2023 8:51 AM CDT Coronary artery disease involving [place] heart, unspecified vessel or lesion type, unspecified whether angina present Encounter for preprocedural cardiovascular examination BASIC METABOLIC PANEL Routine 12/12/2023 8:51 AM CDT Coronary artery disease involving [place] heart, unspecified vessel or lesion type, unspecified [...] ORDERABLES Final Re sult [facility] [place] [address] * (ABNORMAL) Basic metabolic panel (12/12/2023 8:51 AM CDT) Sodium 143 135 - 145 mmol/L Potassium, pl 4.0 3.3 - 4.9 mmol/L [facility] Chloride 104 97 - 110 mmol/L [facility] CO2 29 22 - 32 mmol/L [facility] Anion gap 10 2 - 15 mmol/L [facility] BUN 23 6 - 25 mg/dL [facility] Creatinine 1.19(H) 0.60 - 1.10 mg/dL [facility] Glucose 112 70 - 199 mg/dL [facility] Comment: Interpretive Data Fasting glucose >/= [...] 2022. Calcium 9.3 8.5 - 10.3 mg/dL [facility] Blood 12/12/2023 8:51 AM CDT 12/12/2023 9:04 AM CDT Stan Treviño MD LAB BLOOD ORDERABLES Final Re sult [facility] [place] [address] documented in this encounter Visit Diagnoses Diagnosis Coronary artery disease involving [place] heart, unspecified vessel or lesion type, unspecified whether angina present Encounter for preprocedural cardiovascular examination documented in this encounter Care Teams Spiritual Minister Relationship Specialty Start Date End Date Elpidio Serrato MD PCP - General Internal Medicine 06/09/18 documented as of this encounter
--- OUTSIDE RECORDS SUMMARY | 2024-04-29 21:11 | XMS_ITS | Encounter Summary ---
Author Organization [facility] Address [address] [facility] [address] [place] [address] Phone Care Team Providers Care Qa Manager Name Role Phone Elpidio Serrato MD Primary Care Provider [phone] Reason for Referral * Procedure (Routine) - Closed Specialty Diagnoses / Procedures Referred By Constantino alvarado Referred To Contact Pulmonology Diagnoses Coronary artery disease involving [place] heart, unspecified vessel or lesion type, unspecified whether angina present Encounter for preprocedural cardiovascular examination Procedures Pulmonary Function Test -[facility] Adult PFT Lab- CAM-8D; Standard; Spirometry, Spirometry w/bronchodilator, DLCO and Lung Volumes Stan Treviño MD [address] [facility] [address] [place] [address] Phone: tel: fax: Referral ID Status Reason Start Date Expiration Date Visits Re quested Visits Authorized [id number] Closed 12/04/2023 01/02/2025 1 1 Reason for Visit * Procedure (Routine) - Closed Specialty Diagnoses / Procedures Referred By Constantino alvarado Referred To Contact Pulmonology Diagnoses Coronary artery disease involving [place] heart, unspecified vessel or lesion type, unspecified whether angina present Encounter for preprocedural cardiovascular examination Procedures Pulmonary Function Test -[facility] Adult PFT Lab- [facility]-8D; Standard; Spirometry, Spirometry w/bronchodilator, DLCO and Lung Volumes Stan Treviño MD [address] [facility] [address] [place] [address] Phone: tel: fax: Referral ID Status Reason Start Date Expiration Date Visits Re quested Visits Authorized [id number] Closed 12/04/2023 01/02/2025 1 1 Encounter Details Date Type Department Care Team (Latest Contact Info) Description 12/12/2023 7:58 AM CDT - 12/12/2023 11:59 PM CDT Hospital Encounter [facility] Pulmonary [address] [facility] [address] [place] [address] Coronary artery disease involving [place] heart, unspecified vessel or lesion [...] file Legal Sex Female 3:59 AM 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 Gender Identity Female 05/13/2021 4:21 PM HOSPITAL RECEIVING CLERK Sexual Orientation Not on file documented [...] 8:27 AM CDT Coronary artery disease involving [place] heart, unspecified vessel or lesion type, unspecified whether angina present Encounter for preprocedural cardiovascular examination documented in this encounter Results * Pulmonary Function Test - (12/12/2023 8:27 AM CDT) FVC PRE 2.08 L [facility] FVC %PRE PRED 91 % [facility] FEV1 PRE 1.66 L [facility] FEV1 %PRE PRED 94 % [facility] FEV1/FVC PRE 80.0 % [facility] FRC PL PRE 2.18 L [facility] FRC PL %PRE PRED 89 % [facility] RV PRE 1.72 L [facility] RV %PRE PRED 85 % [facility] TLC PRE 3.90 L [facility] TLC %PRE PRED 90 % [facility] DLCO PRE 15.6 ml/min/mmH g [facility] DLCO %PRE PRED 94 % [facility] Anatomical Region Laterality Modality PFT 12/12/2023 8:13 AM CDT Narrative 12/14/2023 4:01 PM CDT PFT performed at:->[facility] Adult PFT Lab- CAM-8D Procedure:->Standard Standard:->Spirometry, [...] and %HbO2 is age dependent. However, the [facility] Pulmonary Function Laboratory defines hypoxemia as a PaO2 <56 mm Hg or a %HbO2 <89%. Stan Treviño MD PFT ORDERABLES Final Result documented in this encounter Visit Diagnoses Diagnosis Coronary artery disease involving [place] heart, unspecified vessel or lesion type, unspecified whether angina present Encounter for preprocedural cardiovascular examination documented in this encounter Care Teams Qa Manager Relationship Specialty Start Date End Date Elpidio Serrato MD PCP - General Internal Medicine 06/09/18 documented as of this encounter
--- OUTSIDE RECORDS SUMMARY | 2024-04-29 21:12 | XMS_ITS | Encounter Summary ---
Author Organization [facility] Address [address] [facility] [address] [place] [address] Phone Care Team Providers Care Administrative Office Specialist Name Role Phone Elpidio Serrato MD Primary Care Provider [phone] Reason for Visit * Diagnostic Imaging (Routine) - Closed Specialty Diagnoses / Procedures Referred By Constantino t Referred To Contact Diagnoses Coronary artery disease involving [place] heart, unspecified vessel or lesion type, unspecified whether angina present Encounter for preprocedural cardiovascular examination Procedures US Vein Mapping Duplex Lower Extremity Bilateral Stan Barrett MD [address] [facility] [address] [place] [address] Phone: tel: fax: [address] [phone] Referral ID Status Reason Start Date Expiration Date Visits Re quested Visits Authorized [id number] Closed 12/04/2023 01/02/2025 1 1 Encounter Details Date Type Department Care Team (Latest Contact Info) Description 12/12/2023 9:30 AM CDT Ancillary Procedure [facility] [place] [facility] [address] [place] [address] 8th [place] [address] Coronary artery disease involving [place] heart, unspecified vessel or lesion type, unspecified [...] on file Legal Sex Female 3:59 AM PHYSIOLOGICAL CHEMIST Gender Identity Female 05/13/2021 4:21 PM PHYSIOLOGICAL CHEMIST Sexual Orientation Not on file documented as of this encounter Plan of Treatment Not on file documented as of this encounter Procedures Procedure Name Priority Date/Time Associated Diagnosis Comments US VEIN MAPPING DUPLEX LOWER EXTREMITY BILATERAL Schedule Routine, Read Routine (OP Routine) 12/12/2023 9:53 AM CDT Coronary artery disease involving [place] heart, unspecified vessel or lesion type, unspecified whether angina present Encounter for preprocedural cardiovascular examination US CAROTIDS DUPLEX BILATERAL Schedule Routine, Read Routine (OP Routine) 12/12/2023 9:53 AM CDT Coronary artery disease involving [place] heart, unspecified vessel or lesion type, unspecified whether angina present Encounter for preprocedural cardiovascular examination Encounter for other preprocedural examination documented in this encounter Results * US Carotids Duplex Bilateral (12/12/2023 9:53 AM CDT) Anatomical Region Laterality Modality Vascular Bilateral Ultrasound 12/12/2023 8:56 AM CDT Narrative 12/12/2023 5:09 PM CDT [facility] - Department of Vascular Surgery, Vascular Laboratory [address] [place] [address] Carotid Duplex Ultrasound Report Patient Name: LEVON FIGUEREDO : 1950 (73y 8m) Study Date: 12/12/2023 8:56:33 AM Gender: F Tech: Zakia LONGLyubov Location: [facility] Ref Provider: STAN BARRETT ?Quality: Adequate Order Provider: STAN BARRETT PROCEDURES: Carotid Report: Carotid duplex examination of the extracranial arteries was performed using 2D, color and spectral Doppler. INDICATIONS: I25.10 Atherosclerotic heart disease of [place] coronary artery without angina pectoris, Z01.810 Encounter [...] PSV ?40 ? cm/sec - FINDINGS: Performing Fructose Loader: Coby Levy RVT. Rt Common Carotid Artery: [...] Procedure Note Wilfrido Mcginnis MD - 12/12/2023 [facility] - Department of Vascular Surgery,Vascular Laboratory [address] [place] [address] Carotid Duplex Ultrasound Report Patient Name: LEVON FIGUEREDO : 1950 (73y 8m) Study Date: 12/12/2023 8:56:33 AM Gender: F Tech: Zakia LEVY Location: [facility] Ref Provider: STAN BARRETT Quality: Adequate Order Provider: STAN BARRETT PROCEDURES: Carotid Report: Carotid duplex examination of the extracranial arterieswas performed using 2D, color and spectral Doppler. INDICATIONS: I25.10 Atherosclerotic heart disease of [place] coronary artery withoutangina pectoris, Z01.810 Encounter for [...] LT VERT PSV 40cm/sec - FINDINGS: Performing Fructose Loader: Coby Levy RVT. Rt Common Carotid Artery: [...] above. Electronically Signed By: Wilfrido Mcginnis MD [facility] 2023-12-12 17:09:16 CDT Stan Barrett MD [facility] PROCEDURES Final Resul t * US Vein Mapping Duplex Lower Extremity Bilateral (12/12/2023 9:53 AM CDT) Anatomical Region Laterality Modality Vascular Bilateral Ultrasound 12/12/2023 9:10 AM CDT Narrative 12/12/2023 5:07 PM CDT [facility] - Department of Vascular Surgery, Vascular Laboratory [address] [place] [address] Lower Extremity Vein Mapping Report Patient Name: LEVON FIGUEREDO : 1950 (73y 8m) Study Date: 12/12/2023 9:10:11 AM Gender: F Fructose Loader: Zakia LEVY Location: [facility] Provider: STAN BARRETT ?Quality: Adequate Order Provider: STAN BARRETT PROCEDURES: Mapping Report: Bilateral Lower Extremity Saphenous Vein Mapping. INDICATIONS: I25.10 Atherosclerotic heart disease of [place] coronary artery without angina pectoris, and Z01.810 [...] Saphenous Distal ?0.24 ?cm - FINDINGS: Performing Fructose Loader: Coby Levy RVT. Bilateral: The common femoral, [...] above. Electronically Signed By: Wilfrido Mcginnis MD [facility] 2023-12-12 17:06:48 CDT Procedure Note Wilfrido Mcginnis MD - 12/12/2023 [facility] - Department of Vascular Surgery,Vascular Laboratory [address] [place] [address] Lower Extremity Vein Mapping Report Patient Name: LEVON FIGUEREDO : 1950 (73y 8m) Study Date: 12/12/2023 9:10:11 AM Gender: F Fructose Loader: Zakia LEVY Location: [facility] Ref Provider: STAN BARRETT Quality: Adequate Order Provider: STAN BARRETT PROCEDURES: Mapping Report: Bilateral Lower Extremity Saphenous Vein Mapping. INDICATIONS: I25.10 Atherosclerotic heart disease of [place] coronary artery withoutangina pectoris, and Z01.810 Encounter [...] Saphenous Distal 0.24 cm - FINDINGS: Performing Fructose Loader: Coby Levy RVT. Bilateral: The common femoral, [...] above. Electronically Signed By: Wilfrido Mcginnis MD [facility] 2023-12-12 17:06:48 CDT Stan Barrett MD IM US PROCEDURES Final Resul t documented in this encounter Visit Diagnoses Diagnosis Coronary artery disease involving [place] heart, unspecified vessel or lesion type, unspecified whether angina present Encounter for preprocedural cardiovascular examination Encounter for other preprocedural examination documented in this encounter Care Teams Administrative Office Specialist Relationship Specialty Start Date End Date Elpidio Serrato MD PCP - General Internal Medicine 06/09/18 documented as of this encounter
--- OUTSIDE RECORDS SUMMARY | 2024-04-29 21:12 | XMS_ITS | Encounter Summary ---
Author Organization [facility] Healthcare Address [address] [place] [address] Care Team Providers Care Asset Administrator Name Role Phone Elpidio Serrato MD Primary Care Provider [phone] Reason for Referral * MRI/CAT/PET Scan (Routine) - Closed Specialty Diagnoses / Procedures Referred By Latashaac t Referred To Contact Radiology Diagnoses Coronary artery disease involving [place] heart, unspecified vessel or lesion type, unspecified whether angina present Encounter for preprocedural cardiovascular examination Procedures CT Chest Abdomen Pelvis W Contrast Stan Treviño MD [address] [facility] [address] [place] [address] Phone: tel: fax: [address] [phone] Referral ID Status Reason Start Date Expiration Date Visits Re quested Visits Authorized [id number] Closed 12/04/2023 01/02/2025 1 1 Reason for Visit * MRI/CAT/PET Scan (Routine) - Closed Specialty Diagnoses / Procedures Referred By Contac t Referred To Contact Radiology Diagnoses Coronary artery disease involving [place] heart, unspecified vessel or lesion type, unspecified whether angina present Encounter for preprocedural cardiovascular examination Procedures CT Chest Abdomen Pelvis W Contrast Stan Treviño MD [address] [facility] [address] [place] [address] Phone: tel: fax: [facility] [address] [facility] [place] [address] Referral ID Status Reason Start Date Expiration Date Visits Re quested Visits Authorized [id number] Closed 12/04/2023 01/02/2025 1 1 Encounter Details Date Type Department Care Team (Latest Contact Info) Description 12/12/2023 6:47 AM CDT - 12/12/2023 11:59 PM CDT Hospital Encounter [facility] [address] [place] [address] Stan Treviño MD [address] [facility] [address] [place] [address] Coronary artery disease involving [place] heart, unspecified vessel or lesion type, unspecified [...] on file Legal Sex Female 3:59 AM BAND LEADER Gender Identity Female 05/13/2021 4:21 PM BAND LEADER Sexual Orientation Not on file documented as [...] 7:55 AM CDT Coronary artery disease involving [place] heart, unspecified vessel or lesion type, unspecified [...] Visit Diagnoses Diagnosis Coronary artery disease involving [place] heart, unspecified vessel or lesion type, unspecified [...] 05/2023 documented in this encounter Care Teams Asset Administrator Relationship Specialty Start Date End Date Elpidio Serrato MD PCP - General Internal Medicine 06/09/18 documented as of this encounter
--- OUTSIDE RECORDS SUMMARY | 2024-04-29 21:13 | XMS_ITS | Encounter Summary ---
Author Organization [facility] Address [address] [facility] [address] [place] [address] Phone Care Team Providers Care Psychologist Industrial Organizational Name Role Phone Elpidio Serrato MD Primary Care Provider [phone] Encounter Details Date Type Department Care Team (Late st Contact Info) Description 12/04/2023 Telephone [facility] Surgery [address] [facility] Advanced Medicine 8th [place] [address] [place] [phone] Stan Treviño MD [address] [facility] [address] [place] [address] Social History Tobacco Use Types [...] on file Legal Sex Female 3:59 AM CHEF HEAD Gender Identity Female 05/13/2021 4:21 PM CHEF HEAD Sexual Orientation Not on file documented as [...] on filedocumented in this encounter Care Teams Psychologist Industrial Organizational Relationship Specialty Start Date End Date Elpidio Serrato MD PCP - General Internal Medicine 06/09/18 documented as of this encounter
--- OUTSIDE RECORDS SUMMARY | 2024-04-29 21:13 | XMS_ITS | Encounter Summary ---
Author Organization [facility] Address [address] [place] [address] Phone Care Team Providers Care Nursing Home Admissions Director Name Role Phone Elpidio Serrato MD Primary Care Provider [phone] Encounter Details Date Type Department Care Team (Late st Contact Info) Description 12/05/2023 Telephone [facility] Cardiology [address] [facility] 8th [place] [address] [place] [phone] Rater, JAMES Dunlap [address] [facility] [address] [place] [address] Social History Tobacco Use Types Packs/Day Years [...] on file Legal Sex Female 3:59 AM PUMP AND BLOWER OPERATOR Gender Identity Female 05/13/2021 4:21 PM PUMP AND BLOWER OPERATOR Sexual Orientation Not on file documented [...] for lab order to be sent to [email or web address] in [place], [place]. She went there to have labs drawn but they do not have them. Patient would like to be notified once orders are sent so she knows to go have them done. documented in this encounter Plan of Treatment Not on file documented as of this encounter Visit Diagnoses Not on filedocumented in this encounter Care Teams Nursing Home Admissions Director Relationship Specialty Start Date End Date Elpidio Serrato MD PCP - General Internal Medicine 06/09/18 documented as of this encounter
--- OUTSIDE RECORDS SUMMARY | 2024-04-29 21:14 | XMS_ITS | Encounter Summary ---
Author Organization [facility] Address [address] [facility] [address] [place] [address] Phone Care Team Providers Care Elementary Summer School Teacher Name Role Phone Elpidio Serrato MD Primary Care Provider [phone] Encounter Details Date Type Department Care Team (Late st Contact Info) Description 12/04/2023 Telephone [facility] Surgery [address] [facility] Advanced Medicine 8th [place] [address] [place] [address] Stan Treviño MD [address] [facility] [address] [place] [address] Social History Tobacco Use Types [...] on file Legal Sex Female 3:59 AM COMPANY CONTROLLER Gender Identity Female 05/13/2021 4:21 PM COMPANY CONTROLLER Sexual Orientation Not on file documented as [...] on filedocumented in this encounter Care Teams Elementary Summer School Teacher Relationship Specialty Start Date End Date Elpidio Serrato MD PCP - General Internal Medicine 06/09/18 documented as of this encounter
--- OUTSIDE RECORDS SUMMARY | 2024-04-29 21:15 | XMS_ITS | Encounter Summary ---
Author Organization [facility] Address [address] [place] [address] Phone Care Team Providers Care Case Management Manager Name Role Phone Elpidio Serrato MD Primary Care Provider [phone] Encounter Details Date Type Department Care Team (Late st Contact Info) Description 12/04/2023 Telephone [facility] Cardiology [address] [facility] 8th [place] [address] [place] [address] Kvng Gibson MD [address] [place], [place] [id number] Social History Tobacco Use Types Packs/Day Years [...] on file Legal Sex Female 3:59 AM FINANCIAL PLANNING ADVISOR Gender Identity Female 05/13/2021 4:21 PM FINANCIAL PLANNING ADVISOR Sexual Orientation Not on file documented [...] on filedocumented in this encounter Care Teams Case Management Manager Relationship Specialty Start Date End Date Elpidio Serrato MD PCP - General Internal Medicine 06/09/18 documented as of this encounter
--- OUTSIDE RECORDS SUMMARY | 2024-04-29 21:15 | XMS_ITS | Encounter Summary ---
Author Organization [facility] Healthcare Address [address] [place] [address] Care Team Providers Care Foreign Language Interpreter Name Role Phone Elpidio Serrato MD Primary Care Provider [phone] Reason for Visit * Auth/Cert (Routine) Specialty Diagnoses / Procedures Referred By Contac t Referred To Contact Diagnoses Abnormal stress echocardiogram Abnormal stress echocardiogram [R94.39] Procedures Right Left Heart Catheterization with Coronary Angiography with or without Left Ventriculography [id number] Referral ID Status Reason Start Date Expiration Date Visits Re quested Visits Authorized [id number] 1 1 Encounter Details Date Type Department Care Team (Late st Contact Info) Description 11/25/2023 8:00 AM CDT - 11/25/2023 9:35 AM CDT Surgery [facility] [address] [place] [address] Kvng Gibson MD [address] [facility] [address] [place] [address] Right Left Heart Catheterization with Coronary Angiography with or without Left Ventriculography 70738 Surgery Details Date/Time Status Location OR Service Patient Class Case Class Case Type Trauma Case? 11/25/2023 8:00 AM Posted [facility] CARDIAC JAVA LEAD ENGINEER CCL 04 Cardiovascular Outpatient Elective Panel 1 Procedure LRB Anes Op Region Wound Class Comments Right Left Heart Catheterization with Coronary Angiography with or without Left Ventriculography 47122 N/A Conscious Sedation Surgeon Surgeon Role Service [...] on file Legal Sex Female 3:59 AM BROADCAST SUPERVISOR Gender Identity Female 05/13/2021 4:21 PM BROADCAST SUPERVISOR Sexual Orientation Not on file documented [...] Discharge Instructions * Discharge Instructions* Adrianna Vargas, VIDEO NETWORK ENGINEER - 11/25/2023 10:12 AM CDT Discharge Instructions [...] medication please notify your primary provider and/or family engagement specialist immediately. If you notice bleeding at the [...] M-F call our Outpatient Nurse Coordinators at [phone]. If you need to speak to someone after 5pm please call [facility] at [phone] and ask the marking machine operator topage the Cardiac Driver Messenger Fellow production assembly supervisor. documented in this encounter Medications at Time [...] unspecified HF chronicity, unspecified heart failure type ([facility]) Place 1 tablet (0.4 mg total) [...] recently positive stress test who presented to [facility] today for LHC. Over the past [...] LHC which showed severe MV CAD with PLUM PACKER of RCA, heavily calcified disease in the [...] 650 mg, oral, Q4H PRN, Adrianna Vargas, VIDEO NETWORK ENGINEER Carrier Fluids for Secondary Infusion - 0.9% Sodium Chloride, 30 mL, intravenous, PRN, Adrianna Vargas, VIDEO NETWORK ENGINEER sodium chloride 0.9% flush 0.5-20 mL, 0.5-20 mL, intra-catheter, Q8H LAMONTE, Adrianna Vargas, JAMES sodium chloride 0.9% flush 0.5-20 mL, 0.5-20 mL, intra-catheter, PRN, Adrianna Vargas, VIDEO NETWORK ENGINEER [COMPLETED] sodium chloride 0.9% bolus 267 mL, 3 mL/kg, intravenous, Once, 267 mL at 11/25/23 0808 FOLLOWED BY sodium chloride 0.9% infusion, 1 mL/kg/hr, intravenous, Continuous, Adrianna Vargas, VIDEO NETWORK ENGINEER, Last Rate: 89.1 mL/hr at 11/25/23808, 1 [...] of test: 11/15/2023 Hospital #: 0 Location: [facility] Interpreted by: Vandana Isaacs MD Color Paste Mixing Supervisor: Olimpia Brandon RDCS RN: Shelby Jacobo RN Reason for Test: Dyspnea Study quality: Technically good Referring Physician: GAURAV ROBLERO MD Contrast Agent: 3.0 ml Optison Administered BASELINE STUDY: Wall Motion Scoring (1=Normal 2=Hypo 3=Akinetic 4=Dyskin./Aneurysm 0=Not visualized) Parasternal Long [place]:MAS=1 BAS=1 MIL=2 ROBERT=2 Parasternal Short [place]:MAS=1 MIS=1 AK=1 MIL=2 MAL=1 MA=1 Apical 4 Chambers:=1 MIS=1 BIS=3 BAL=1 MAL=1 AL=1 AC=3 Apical 2 Chambers:AI=1 AK=1 BI=3 BA=1 MA=1 AA=2 AC=3 Ejection Fraction: [...] Defects: RBBB + LAFB Resting ECG [facility] Medications: Lasix, Aspirin, Lipitor, evothyroxine, Metformin, Insulin Meds held: none POST DOBUTAMINE STUDY: Wall Motion Scoring (1=Normal 2=Hypo 3=Akinetic 4=Dyskin./Aneurysm 0=Not visualized) Parasternal Long [place]:MAS=1 BAS=1 MIL=3 ROBERT=3 Parasternal Short [place]:MAS=1 MIS=1 AK=1 MIL=3 MAL=1 MA=1 Apical 4 Chambers:=1 MIS=1 BIS=1 BAL=1 MAL=1 AL=1 AC=2 Apical 2 Chambers:AI=1 AK=1 BI=3 BA=1 MA=1 AA=1 AC=2 Intravenous dobutamine [...] MD By signing this report, the attending family engagement specialist certifies that he or she has personally [...] system. Occluded in the proximal segment with [id number] septal collaterals from the LAD COMPLICATIONS: None. [...] recently positive stress test who presented to [facility] today for LHC. LHC today showed severe MV CAD with PLUM PACKER of RCA, heavily calcified disease in the [...] : 1950 Date of Procedure: 11/25/2023 ORDERING LIEUTENANT SHIFT SUPERVISOR: Surgeon(s): Kvng Gibson MD Procedure(s): Right Left Heart Catheterization with Coronary Angiography with or without Left Ventriculography 03823 Requested Diagnostic: [] Coronary Angiograms Only [] [...] Yes [] No [] Contraindicated Indications for Driver Messenger visit (Select all that apply): [] ACS [...] ESRD [] Dialysis [] HD []PD: Prior AK: [] Yes [x] No If Yes, Most Recent AK Date: Tobacco Use Social History Tobacco Use [...] Yes, Newly Diagnosed: [x] Yes [] No [facility] Class: [] Class I [] Class II [...] 73yoF with abnormal stress test here for [facility] Clinical Frailty Scale: [] 1: Very Fit [...] and Assessment Completed by: Name: Adrianna Vargas VIDEO NETWORK ENGINEER-C Date: 11/25/23 Time: 729 Cosigned by Kvng [...] were not included. ?? Cardiovascular Procedure Center [facility] [address], [address] [place] [id number] CORONARY ANGIOGRAM REPORT Patient: Isabelle Luzt : ?? 1950 MR number: [id number] Date of Service: 11/25/2023 Pantomimist: ?? Kvng Gibson MD Referring physician: ?? [...] obtained. The patient was brought to the cardiac cath technician and placed on the table. The RIGHT [...] left ventriculogram was done. I provided direct gfny-[id number]-uvba moderate conscious sedation which administered by independent [...] system. ??Occluded in the proximal segment with [id number] septal collaterals from the LAD COMPLICATIONS: None. DIAGNOSTIC us Gaurav Roblero NP CV CARDIAC CATH PROCEDURES Final Result * (ABNORMAL) CBC without differential (11/25/2023 8:50 AM CDT) [facility] Signature WBC 7.0 3.8 - 9.9 K/cumm Hgb 10.6(L) 11.9 - 15.5 g/dL [facility] Hct 32.2(L) 35.6 - 45.5 % [facility] Plt 165 150 - 400 K/cumm [facility] MPV 11.2 9.1 - 12.3 fL [facility] RBC 3.65(L) 3.90 - 5.20 M/cumm [facility] MCV 88.2 81.3 - 96.4 fL [facility] MCH 29.0 27.1 - 33.3 pg [facility] MCHC 32.9 32.3 - 35.7 g/dL [facility] RDW CV 12.5 11.1 - 14.9 % [facility] RDW SD 40.1 35.7 - 48.1 fL [facility] NRBC abs 0.00 0.00 - 0.01 K/cumm [facility] Blood 11/25/2023 8:50 AM CDT 11/25/2023 9:22 AM CDT Narrative [facility] - 11/25/2023 9:37 AM CDT To be drawn after hydration bolus complete us Adrianna Vargas NP LAB BLOOD ORDERABLES Final Re sult [facility] Department [place] [address] * POCT glucose (11/25/2023 8:06 AM CDT) [facility] Glucose, POC 111 70 - 199 mg/dL Blood 11/25/2023 8:06 AM CDT 11/25/2023 8:06 AM CDT us Kvng Gibson MD LAB POCT ORDERABLES - DEVICE Final Result [facility] [place] [address] documented in this encounter Visit Diagnoses Diagnosis [...] 11/25/2023 documented in this encounter Care Teams Foreign Language Interpreter Relationship Specialty Start Date End Date Elpidio Serrato MD PCP - General Internal Medicine 06/09/18 documented as of this encounter
--- OUTSIDE RECORDS SUMMARY | 2024-04-29 21:15 | XMS_ITS | Encounter Summary ---
Author Organization [facility] Address [address] [facility] [address] [place] [address] Phone Care Team Providers Care Seed Cutter Name Role Phone Elpidio Serrato MD Primary Care Provider [phone] Reason for Referral * Procedure (Routine) - Closed Specialty Diagnoses / Procedures Referred By Constantino alvarado Referred To Contact Pulmonology Diagnoses Coronary artery disease involving red devil heart, unspecified vessel or lesion type, unspecified whether angina present Encounter for preprocedural cardiovascular examination Procedures Pulmonary Function Test -[facility] U Adult PFT Lab- CAM-8D; Standard; Spirometry, Spirometry w/bronchodilator, DLCO and Lung Volumes Stan Barrett MD [address] [facility] [address] [place] [address] Phone: tel: fax: Referral ID Status Reason Start Date Expiration Date Visits Re quested Visits Authorized [id number] Closed 12/04/2023 01/02/2025 1 1 * Diagnostic Imaging (Routine) - Closed Specialty Diagnoses / Procedures Referred By Constantino alvarado Referred To Contact Diagnoses Coronary artery disease involving red devil heart, unspecified vessel or lesion type, unspecified whether angina present Encounter for preprocedural cardiovascular examination Encounter for other preprocedural examination Procedures US Carotids Duplex Bilateral Stan Barrett MD [address] [facility] [address] [place] [address] Phone: tel: fax: [address] [phone] Referral ID Status Reason Start Date Expiration Date Visits Re quested Visits Authorized [id number] Closed 12/04/2023 01/02/2025 1 1 * Diagnostic Imaging (Routine) - Closed Specialty Diagnoses / Procedures Referred By Contac t Referred To Contact Diagnoses Coronary artery disease involving red devil heart, unspecified vessel or lesion type, unspecified whether angina present Encounter for preprocedural cardiovascular examination Procedures US Vein Mapping Duplex Lower Extremity Bilateral Stan Barrett MD [address] [facility] [address] [place] [address] Phone: tel: fax: [address] [phone] Referral ID Status Reason Start Date Expiration Date Visits Re quested Visits Authorized [id number] Closed 12/04/2023 01/02/2025 1 1 * MRI/CAT/PET Scan (Routine) - Closed Specialty Diagnoses / Procedures Referred By Contac t Referred To Contact Radiology Diagnoses Coronary artery disease involving red devil heart, unspecified vessel or lesion type, unspecified whether angina present Encounter for preprocedural cardiovascular examination Procedures CT Chest Abdomen Pelvis W Contrast Stan Barrett MD [address] [facility] [address] [place] [address] Phone: tel: fax: [address] [phone] Referral ID Status Reason Start Date Expiration Date Visits Re quested Visits Authorized [id number] Closed 12/04/2023 01/02/2025 1 1 Encounter Details Date Type Department Care Team (Latest Contact Info) Description 12/04/2023 Orders Only [facility] Cardiothoracic Surgery [address] [facility] 8th Floor [address] Room [address] [place] [address] Stan Barrett MD [address] [place] [address] [facility] [address] [place] [address] Coronary artery disease involving red devil heart, unspecified vessel or lesion type, unspecified [...] on file 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 Gender Identity Female 05/13/2021 4:21 PM 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 Sexual Orientation Not on file documented as of this encounter Plan of Treatment Not on file documented as of this encounter Results * US Carotids Duplex Bilateral (12/12/2023 9:53 AM CDT) Anatomical Region Laterality Modality Vascular Bilateral Ultrasound 12/12/2023 8:56 AM CDT Narrative 12/12/2023 5:09 PM CDT [facility] - Department of Vascular Surgery, Vascular Laboratory [address] [place] [address] Carotid Duplex Ultrasound Report Patient Name: LEVON FIGUEREDO : [birth year] (73y 8m) Study Date: 12/12/2023 8:56:33 AM Gender: F Tech: Zakia GALARZA Location: [facility] Provider: STAN BARRETT ?Quality: Adequate Order Provider: STAN BARRETT PROCEDURES: Carotid Report: Carotid duplex examination of the extracranial arteries was performed using 2D, color and spectral Doppler. INDICATIONS: I25.10 Atherosclerotic heart disease of red devil coronary artery without angina pectoris, Z01.810 Encounter [...] PSV ?40 ? cm/sec - FINDINGS: Performing Rehabilitation Engineer: Coby Galarza RVT. Rt Common Carotid Artery: [...] Procedure Note Wilfrido Mcginnis MD - 12/12/2023 [facility] - Department of Vascular Surgery,Vascular Laboratory [address] [place] [address] Carotid Duplex Ultrasound Report Patient Name: LEVON FIGUEREDO : 1950 (73y 8m) Study Date: 12/12/2023 8:56:33 AM Gender: F Tech: Zakia GALARZA Location: [facility] Ref Provider: STAN BARRETT Quality: Adequate Order Provider: STAN BARRETT PROCEDURES: Carotid Report: Carotid duplex examination of the extracranial arterieswas performed using 2D, color and spectral Doppler. INDICATIONS: I25.10 Atherosclerotic heart disease of red devil coronary artery withoutangina pectoris, Z01.810 Encounter for [...] LT VERT PSV 40cm/sec - FINDINGS: Performing Rehabilitation Engineer: Coby Galarza RVT. Rt Common Carotid Artery: [...] 2023-12-12 17:09:16 CDT us Stan Barrett MD [facility] US PROCEDURES Final Resul t * US Vein Mapping Duplex Lower Extremity Bilateral (12/12/2023 9:53 AM CDT) Anatomical Region Laterality Modality Vascular Bilateral Ultrasound 12/12/2023 9:10 AM CDT Narrative 12/12/2023 5:07 PM CDT [facility] - Department of Vascular Surgery, Vascular Laboratory [address] [place] [address] Lower Extremity Vein Mapping Report Patient Name: LEVON FIGUEREDO : 1950 (73y 8m) Study Date: 12/12/2023 9:10:11 AM Gender: F Rehabilitation Engineer: Zakia GALARZA Location: [facility] Provider: STAN BARRETT ?Quality: Adequate Order Provider: STAN BARRETT PROCEDURES: Mapping Report: Bilateral Lower Extremity Saphenous Vein Mapping. INDICATIONS: I25.10 Atherosclerotic heart disease of red devil coronary artery without angina pectoris, and Z01.810 [...] Saphenous Distal ?0.24 ?cm - FINDINGS: Performing Rehabilitation Engineer: Coby Galarza RVT. Bilateral: The common femoral, [...] above. Electronically Signed By: Wilfrido Mcginnis MD [facility] 2023-12-12 17:06:48 CDT Procedure Note Wilfrido Mcginnis MD - 12/12/2023 [facility] - Department of Vascular Surgery,Vascular Laboratory [address] [place] [address] Lower Extremity Vein Mapping Report Patient Name: LEVON FIGUEREDO : 1950 (73y 8m) Study Date: 12/12/2023 9:10:11 AM Gender: F Rehabilitation Engineer: Zakia GALARZA Location: [facility] Ref Provider: STAN BARRETT Quality: Adequate Order Provider: STAN BARRETT PROCEDURES: Mapping Report: Bilateral Lower Extremity Saphenous Vein Mapping. INDICATIONS: I25.10 Atherosclerotic heart disease of red devil coronary artery withoutangina pectoris, and Z01.810 Encounter [...] Saphenous Distal 0.24 cm - FINDINGS: Performing Rehabilitation Engineer: Coby Galarza RVT. Bilateral: The common femoral, [...] above. Electronically Signed By: Wilfrido Mcginnis MD [facility] 2023-12-12 17:06:48 CDT us Stan Barrett MD [facility] US PROCEDURES Final Resul t * (ABNORMAL) Basic metabolic panel (12/12/2023 8:51 AM CDT) Sodium 143 135 - 145 mmol/L Potassium, pl 4.0 3.3 - 4.9 mmol/L [facility] Chloride 104 97 - 110 mmol/L [facility] CO2 29 22 - 32 mmol/L [facility] Anion gap 10 2 - 15 mmol/L [facility] BUN 23 6 - 25 mg/dL [facility] Creatinine 1.19(H) 0.60 - 1.10 mg/dL [facility] Glucose 112 70 - 199 mg/dL [facility] Comment: Interpretive Data Fasting glucose >/= [...] Calcium 9.3 8.5 - 10.3 mg/dL [facility] Blood 12/12/2023 8:51 AM CDT 12/12/2023 9:04 AM CDT us Stan Barrett MD LAB BLOOD ORDERABLES Final Re sult [facility] Department [place] [address] * Pulmonary Function Test - (12/12/2023 8:27 [...] Narrative 12/14/2023 4:01 PM CDT PFT performed at:->[facility] Adult PFT Lab- [facility]-8D Procedure:->Standard Standard:->Spirometry, Spirometry w/bronchodilator, DLCO and Lung [...] and %HbO2 is age dependent. However, the [facility] Pulmonary Function Laboratory defines hypoxemia as [...] Visit Diagnoses Diagnosis Coronary artery disease involving red devil heart, unspecified vessel or lesion type, unspecified whether angina present- Primary Encounter for preprocedural cardiovascular examination Encounter for other preprocedural examination Coronary artery disease involving red devil heart, unspecified vessel or lesion type, unspecified whether angina present Encounter for preprocedural cardiovascular examination Encounter for other preprocedural examination Coronary artery disease involving red devil heart, unspecified vessel or lesion type, unspecified whether angina present Encounter for preprocedural cardiovascular examination Coronary artery disease involving red devil heart, unspecified vessel or lesion type, unspecified whether angina present Encounter for preprocedural cardiovascular examination documented in this encounter Care Teams Seed Cutter Relationship Specialty Start Date End Date Elpidio Serrato MD PCP - General Internal Medicine 06/09/18 documented as of this encounter
--- OUTSIDE RECORDS SUMMARY | 2024-04-29 21:15 | XMS_ITS | Encounter Summary ---
Author Organization [facility] Address [address] [facility] [address] [place] [address] Phone Care Team Providers Care Home Health Nurse Licensed Practical Name Role Phone Elpidio Serrato MD Primary Care Provider [phone] Encounter Details Date Type Department Care Team (Latest Contact Info) Description 11/28/2023 10:30 AM CDT Office Visit [facility] Cardiothoracic Surgery [address] [facility] 8th Floor [address] Room [address] [address] Stan Treviño MD [address] [facility] [address] [place] [address] Coronary artery disease involving [place] heart, unspecified vessel or lesion type, unspecified [...] on file 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 Gibson REASON FOR CONSULTATION: coronary artery disease CHIEF COMPLAINT: chest discomfort HISTORY OF PRESENTING ILLNESS: Ms. Isabelle Lutz is a 73 year old female with PMH of DM, glaucoma, HTN, hypothyroidism, CKD-stage3, HLD,obesity, recently positive stress test who presented to [facility] for LHC. 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, heavily calcified disease in the [...] CATARACT EXTRACTION Right 06/14/2022 CE/IOL + goniotomy [place] APPENDECTOMY unkown dates per pt [place] DELIVERY ONLY Section - in 1972 and 1975 (Added by TW Conv) [place] TENDON SHEATH INCISION Hand Incision Tendon Sheath [...] test: 11/15/2023 Hospital #: 0 Location: [facility] Interpreted by: Vandana Isaacs MD Automatic Spreader Operator: Olimpia Brandon RDCS RN: Shelby Jacobo RN Reason for Test: Dyspnea Study quality: Technically good Referring Physician: GAURAV ROBLERO MD Contrast Agent: 3.0 ml Optison Administered BASELINE STUDY: Wall Motion Scoring (1=Normal 2=Hypo 3=Akinetic 4=Dyskin./Aneurysm 0=Not visualized) Parasternal Long [place]:MAS=1 BAS=1 MIL=2 ROBERT=2 Parasternal Short [place]:MAS=1 MIS=1 CT=1 MIL=2 MAL=1 MA=1 Apical 4 Chambers:=1 MIS=1 BIS=3 BAL=1 MAL=1 AL=1 AC=3 Apical 2 Chambers:AI=1 CT=1 BI=3 BA=1 MA=1 AA=2 AC=3 Ejection Fraction: [...] No MS/ mild MR; No TR; No OH. Diastolic Function: Grade I (impaired relaxation) with nl est filling pressures.Unable to estimate PASP d/t inadequate TR jet. Baseline HR: 77 Baseline BP: 115/57 Conduction Defects: RBBB + LAFB Resting ECG Comments: Oriana Jensen Medications: Lasix, Aspirin, Lipitor, evothyroxine, Metformin, Insulin Meds held: none POST DOBUTAMINE STUDY: Wall Motion Scoring (1=Normal 2=Hypo 3=Akinetic 4=Dyskin./Aneurysm 0=Not visualized) Parasternal Long [place]:MAS=1 BAS=1 MIL=3 ROBERT=3 Parasternal Short [place]:MAS=1 MIS=1 CT=1 MIL=3 MAL=1 MA=1 Apical 4 Chambers:=1 MIS=1 BIS=1 BAL=1 MAL=1 AL=1 AC=2 Apical 2 Chambers:AI=1 CT=1 BI=3 BA=1 MA=1 AA=1 AC=2 Intravenous dobutamine [...] MD By signing this report, the attending documentation improvement specialist certifies that he or she has [...] system. Occluded in the proximal segment with [id number] septal collaterals from the LAD COMPLICATIONS: None. [...] feel free to contact our office at [phone] with any questions or concerns regarding her care. Sincerely, Columba Leslie, MSN, DIPLOMATIC INTERPRETER/TRANSLATOR-[facility] Division of Cardiothoracic Surgery [...] Visit Diagnoses Diagnosis Coronary artery disease involving [place] heart, unspecified vessel or lesion type, unspecified whether angina present- Primary documented in this encounter Care Teams Home Health Nurse Licensed Practical Relationship Specialty Start Date End Date Elpidio Serrato MD PCP - General Internal Medicine 06/09/18 documented as of this encounter
--- OUTSIDE RECORDS SUMMARY | 2024-04-29 21:16 | XMS_ITS | Encounter Summary ---
Author Organization [facility] Address [address] [place] [address] Phone Care Team Providers Care Curriculum Consultant Name Role Phone Elpidio Serrato MD Primary Care Provider [phone] Encounter Details Date Type Department Care Team (Late st Contact Info) Description 11/19/2023 Telephone [facility] Cardiology [address] [facility] 8th [place] [address] [place] [address] Kvng Gibson MD [address] [place], [place] [id number] Social History Tobacco Use Types Packs/Day Years [...] on file 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 Gibson have any laboratory secretary openings soon for a R and L [...] RN Sent: 11/18/2023 10:30 AM CDT To: [facility] Cath/Ep/Jean/Vasc Scheduling Pool What are the soonest available L/R HC dates? Patient had abnormal stress test. Yumiko Alejo RN, BSN Clinical Nurse Coordinator [facility] Cardiology documented in this encounter Plan of Treatment Not on file documented as of this encounter Visit Diagnoses Not on filedocumented in this encounter Care Teams Curriculum Consultant Relationship Specialty Start Date End Date Elpidio Serrato MD PCP - General Internal Medicine 06/09/18 documented as of this encounter
--- OUTSIDE RECORDS SUMMARY | 2024-04-29 21:16 | XMS_ITS | Encounter Summary ---
Author Organization [facility] Healthcare Address [address] [place] [address] Care Team Providers Care Paint Crew Supervisor Name Role Phone Elpidio Serrato MD Primary Care Provider [phone] Reason for Visit * Auth/Cert (Routine) Specialty Diagnoses / Procedures Referred By Contac t Referred To Contact Diagnoses Abnormal cardiovascular stress test Abnormal stress echocardiogram Stable angina (HCC) Procedures n/a Referral ID Status Reason Start Date Expiration Date Visits Re quested Visits Authorized [id number] 1 1 Encounter Details Date Type Department Care Team (Latest Contact Info) Description 11/15/2023 2:56 PM CDT - 11/16/2023 3:18 PM CDT Hospital Encounter [facility] [address] [place] [address] Gris Molina MD [address] [facility] [address] [place] [address] Kolby Robles MD [address] [facility] [address] [place] [id number] Abnormal stress echocardiogram (Primary Dx) Discharge Disposition: [...] on file Legal Sex Female 3:59 AM SPECIAL INSPECTOR Gender Identity Female 05/13/2021 4:21 PM SPECIAL INSPECTOR Sexual Orientation Not on file documented [...] Care Physician at Discharge: Elpidio Serrato MD [phone] Admission Date: 11/15/2023 Discharge Date: 11/16/2023 Admission Location: [facility] Problems/Diagnoses: Principal Problem: Abnormal stress echocardiogram Active [...] is important to follow up with your turn out worker to obtain a diagnostic heart cath in the near future. When you are discharged, please: Continue taking all medications as previously prescribed Call your turn out worker on Saturday and schedule either an appointment or date for an elective heart cath Follow up with your sprinkler fitter helper on diabetes management If you gain 3 lbs in one day or 5 pounds in a week, please take an extra dose of lasix (20 mg) and call your turn out worker for more instructions. If you have any [...] CAM 13B LYON EML 01/20/2024 8:50 AM [facility]AL TEST[facility] OP TEST [facility]6 OP 01/20/2024 9:00 AM [facility] OP TEST [facility]6 OP 01/20/2024 9:30 AM Makayla Ramos MD [facility] 6 OP 02/14/2024 11:30 AM Faib Collier NP CAR CAM 8B Cardiology 05/04/2024 9:20 AM Merna Bell MD EML CAM 13B [facility] EML Kaushik Cuadra MD PhD PGY-1, [...] is important to follow up with your turn out worker to obtain a diagnostic heart cath in the near future. When you are discharged, please: Continue taking all medications as previously prescribed Call your turn out worker on Saturday and schedule either an appointment or date for an elective heart cath Follow up with your sprinkler fitter helper on diabetes management If you gain 3 lbs in one day or 5 pounds in a week, please take an extra dose of lasix (20 mg) and call your turn out worker for more instructions. If you have any [...] 73 y.o. female Admit Date: 11/15/2023 Bed: [id number] LOS: 0 days Subjective Isabelle Lutz is [...] flush 0.5-20 mL 0.5-20 mL intra-catheter Q8H [facility] Kaushik Cuadra MD 10 mLat 11/15/231653 And [...] injection 5,000 Units 5,000 Units subcutaneous Q8H [facility] Kaushik Cuadra MD [START ON 11/16/2023] insulin [...] AR; NoMS/ mild MR; No TR; No OH. Diastolic [...] 2=Hypo 3=Akinetic 4=Dyskin./Aneurysm 0=Not visualized) Parasternal [place]:MAS=1 BAS=1 MIL=3 ROBERT=3 Parasternal [place]:MAS=1 MIS=1 NH=1 MIL=3MAL=1 MA=1 Apical 4 Chambers:=1 MIS=1 BIS=1 BAL=1 MAL=1 AL=1 AC=2 Apical 2 Chambers:AI=1 NH=1 BI=3 BA=1 MA=1 AA=1 AC=2 Intrav enous [...] and electrolyte surveillance. Congestive heart failure (CMS/HCC) ([facility]) Assessment & Plan - Jardiance relative contraindication [...] PM CDT Patient discharged home, assisted to rn research services by RN. Patient given discharge instructions, [...] Medicare A/B, BCBS Prescription Coverage: yes Pharmacy: [facility] - LYNNE [facility] - [facility] Portal to Registered [facility] [place] [address] [facility]/pharmacy [address] [place] [address] [address] [address] Primary Care Provider: Elpidio Serrato MD Prior [...] Collaboration with Patient, Provider, Direct Care Nurse, Hair Or Beauty Salon Manager, and other members of theHealth Care Team to assure needed interventions completed. 2. Return patient to optimal level of self-care post discharge. 3. Honing Machine Operator will follow for Discharge Planning [...] the Shift: Patient will remain hemodynamically stable Care Home Patient Centered Goal for Treatment: pt will [...] the Shift: patient will remain hemodynamically stable Care Home Patient Centered Goal for Treatment: pt will [...] Associated Problem(s): DM2 (diabetes mellitus, type 2) ([facility]) - Lispro TID meals - SSI - [...] albuminuria creatinine ratio less than 30 mg/g ([facility]) - Tums for phosphate binding - Monitor [...] DEVICE Fin al Result Performing Organization Address [facility]/ZIP Co de Phone Number [facility] [address] [facility] Department [place] [address] * POCT glucose (11/16/2023 7:54 AM CDT) Glucose, POC 84 70 - 199 mg/dL Blood 11/16/2023 7:54 AM CDT 11/16/2023 7:54 AM CDT Kolby Robles MD LAB POCT ORDERABLES - DEVICE Fin al Result JORGE [facility] [place] [address] * (ABNORMAL) Troponin I high-sensitivity (11/16/2023 6:15 AM CDT) Trop I hs 20(H) <=17 ng/L Comment: Interpretive Data For further hscTnI resources including the diagnostic algorithm and an aid in interpretation, copy and paste this link: https://Woto.Clickpass.org/show/hsTrop-1 Current Interpretive Data last revised 2019. Blood 11/16/2023 6:15 AM CDT 11/16/2023 6:49 AM CDT us Kolby Robles MD LAB BLOOD ORDERABLES Final Resul t Performing Organization Address [facility] Co de Phone Number [facility] [place] [address] * (ABNORMAL) Troponin I high-sensitivity (11/15/2023 9:33 PM CDT) Trop I hs 25(H) <=17 ng/L Comment: Interpretive Data For further hscTnI resources including the diagnostic algorithm and an aid in interpretation, copy and paste this link: https://Woto.Clickpass.org/show/hsTrop-1 Current Interpretive Data last revised 2019. Blood 11/15/2023 9:33 PM CDT 11/15/2023 10:35 PM CDT us Kolby Robles MD LAB BLOOD ORDERABLES Final Resul t JORGE [facility] [place] [address] * POCT glucose (11/15/2023 7:57 PM CDT) Glucose, POC 111 70 - 199 mg/dL Blood 11/15/2023 7:57 PM CDT 11/15/2023 7:57 PM CDT Kolby Robles MD LAB POCT ORDERABLES - DEVICE Fin al Result Performing Organization Address City/[facility] Co de Phone Number [facility] [place] [address] * Check Sample (11/15/2023 6:58 PM CDT) ABO Rh A Positive [facility] HCLL OTHER 11/15/2023 6:58 PM CDT 11/15/2023 7:20 PM CDT Result [facility] Kolby Robles MD LAB BLOOD ORDERABLES Final Resul t Performing Organization Address [facility] Co de Phone Number [facility] [place] [address] [facility] * (ABNORMAL) Troponin I high-sensitivity (11/15/2023 6:02 PM CDT) Trop I hs 22(H) <=17 ng/L Comment: Interpretive Data For further [facility] resources including the diagnostic algorithm and an aid in interpretation, copy and paste this link: https://bjhlab.testcatalog.org/show/hsTrop-1 Current Interpretive Data last revised 2019. Blood 11/15/2023 6:02 PM CDT 11/15/2023 6:57 PM CDT Kaushik Cuadra MD LAB BLOOD ORDERABLES Final Result Performing Organization Address [facility]/ZIP Co de Phone Number [facility] [place] [address] * (ABNORMAL) eGFR (11/15/2023 5:12 PM CDT) [...] ORDERABLES Final Resul t Performing Organization Address City/State/[facility] Co de Phone Number [facility] Department [place] [address] * Differential, auto (11/15/2023 5:12 PM CDT) Pathologist [facility] Neutrophil abs 5.3 1.5 - 6.5 K/cumm Imm gran abs 0.0 0.0 - 0.1 K/cumm [facility] Lymphocyte abs 1.8 0.8 - 3.3 K/cumm [facility] Monocyte abs 0.6 0.2 - 0.8 K/cumm [facility] Eosinophil abs 0.1 0.0 - 0.5 K/cumm [facility] Basophil abs 0.0 0.0 - 0.1 K/cumm [facility] Neutrophil pct 67.7 % [facility] Comment: Interpretive Data Percent cell count reference ranges are not reported, since discordance with absolute values may lead to misinterpretation of CBC data. Current Interpretive Data was last revised on 2017. Imm gran pct 0.4 % JORGE [facility] Comment: Interpretive Data Percent cell count reference ranges are not reported, since discordance with absolute values may lead to misinterpretation of CBC data. Current Interpretive Data was last revised on 2017. Lymphocyte pct 23.1 % JORGE [facility] Comment: Interpretive Data Percent cell count reference ranges are not reported, since discordance with absolute values may lead to misinterpretation of CBC data. Current Interpretive Data was last revised on 2017. Monocyte pct 7.3 % [facility] Comment: Interpretive Data Percent cell count reference ranges are not reported, since discordance with absolute values may lead to misinterpretation of CBC data. Current Interpretive Data was last revised on 2017. Eosinophil pct 1.0 % [facility] Comment: Interpretive Data Percent cell count reference ranges are not reported, since discordance with absolute values may lead to misinterpretation of CBC data. Current Interpretive Data was last revised on 2017. Basophil pct 0.5 % [facility] Comment: Interpretive Data Percent cell count reference ranges are not reported, since discordance with absolute values may lead to misinterpretation of CBC data. Current Interpretive Data was last revised on 2017. Blood 11/15/2023 5:12 PM CDT 11/15/2023 6:02 PM CDT us Kolby Robles MD LAB BLOOD ORDERABLES Final Resul t J[facility]GE [place] [facility] Department [place] [address] * aPTT (11/15/2023 5:12 PM CDT) aPTT [...] ORDERABLES Final Resul t Performing Organization Address [facility] de Phone Number [facility] [place] [address] * Protime-INR (11/15/2023 5:12 PM CDT) PT 12.1 10.3 - 13.7 sec INR 1.06 0.90 - 1.20 [facility] Comment: Interpretive data Oral anticoagulant therapeutic ranges: Venous thromboembolism prophylaxis or treatment: 2.0-3.0 CARDIOLOGY Standard range: 2.0-3.0 High-intensity range: 2.5-3.5 Refer to indication-specific guidelines for appropriate target ranges for prosthetic heart valve replacement. Current interpretive data was last revised on 2019. Blood 11/15/2023 5:12 PM CDT 11/15/2023 6:06 PM CDT Result [facility] us Kolby Robles MD LAB BLOOD ORDERABLES Final Resul t Performing Organization Address [facility] [place] [address] * Iron profile w/ IBC (11/15/2023 5:12 PM CDT) Iron 69 35 - 145 mcg/dL TIBC 306 250 - 400 mcg/dL [facility] Transferrin saturation 23 20 - 50 % [facility] Blood 11/15/2023 5:12 PM CDT 11/15/2023 6:01 PM CDT us Kolby Robles MD LAB BLOOD ORDERABLES Final Resul t Performing Organization Address City/[facility] Co de Phone Number [facility] [place] [address] * Type and screen (11/15/2023 5:12 PM CDT) Pathologist [facility] ABO Rh A Positive Sergio, indirect Negative [facility] Blood 11/15/2023 5:12 PM CDT 11/15/2023 6:17 PM CDT Narrative [facility] - 11/15/2023 7:22 PM CDT Has the patient had Daratumumab or Isatuximab in the past 6 months?->Unknown us Kolby Robles MD LAB BLOOD BANK TEST ORDERABLES F inal Result Performing Organization Address City/[facility] Co de Phone Number [facility] Department [place] [address] * (ABNORMAL) CBC with auto differential (11/15/2023 5:12 PM CDT) [facility] WBC 7.8 3.8 - 9.9 K/cumm Hgb 11.5(L) 11.9 - 15.5 g/dL [facility] Hct 35.3(L) 35.6 - 45.5 % [facility] Plt 201 150 - 400 K/cumm [facility] MPV 11.2 9.1 - 12.3 fL [facility] RBC 3.93 3.90 - 5.20 M/cumm [facility] MCV 89.8 81.3 - 96.4 fL [facility] MCH 29.3 27.1 - 33.3 pg [facility] MCHC 32.6 32.3 - 35.7 g/dL [facility] RDW CV 12.3 11.1 - 14.9 % [facility] RDW SD 41.1 35.7 - 48.1 fL [facility] NRBC abs 0.00 0.00 - 0.01 K/cumm [facility] Blood 11/15/2023 5:12 PM CDT 11/15/2023 6:02 PM CDT us Kolby Robles MD LAB BLOOD ORDERABLES Final Resul t [facility]ER [facility] Department [place] [address] * (ABNORMAL) Pro B-type natriuretic peptide (11/15/2023 [...] ORDERABLES Final Resul t Performing Organization Address City/[facility]/ZIP Co de Phone Number [facility] Department [place] [address] * Magnesium (11/15/2023 5:12 PM CDT) Pathologist [facility] Magnesium 1.9 1.4 - 2.5 mg/dL Blood 11/15/2023 5:12 PM CDT 11/15/2023 6:01 PM CDT Kolby Robles MD LAB BLOOD ORDERABLES Final Resul t Performing Organization Address [facility] Co de Phone Number [facility] Department [place] [address] * (ABNORMAL) Comprehensive metabolic panel (11/15/2023 5:12 PM CDT) Sodium 147(H) 135 - 145 mmol/L Potassium, pl 3.7 3.3 - 4.9 mmol/L [facility] Chloride 113(H) 97 - 110 mmol/L [facility] CO2 23 22 - 32 mmol/L [facility] Anion gap 11 2 - 15 mmol/L [facility] BUN 27(H) 6 - 25 mg/dL [facility] Creatinine 1.04 0.60 - 1.10 mg/dL [facility] Glucose 77 70 - 199 mg/dL [facility] Comment: Interpretive Data Fasting [...] ORDERABLES Final Resul t Performing Organization Address City/[facility]/ZIP Co de Phone Number [facility] Department [place] [address] * POCT glucose (11/15/2023 4:14 PM CDT) Glucose, POC 78 70 - 199 mg/dL Blood 11/15/2023 4:14 PM CDT 11/15/2023 4:14 PM CDT us Kolby Robles MD LAB POCT ORDERABLES - DEVICE Fin al Result Performing Organization Address [facility]/ZIP Co de Phone Number [facility] Department [place] [address] documented in this encounter Visit Diagnoses Diagnosis [...] attest that the patient meets the approved [facility] Use Criteria: Yes, Approving Provider: Margaret, Indications: [...] Sat11/15/23 at 1700 1654 (Given - Provider: Leeanne Pacheco RN) 1055 [...] attest that the patient meets the approved [facility] Use Criteria: Yes, Approving Provider: Margaret, Indications: [...] Indications: hypomagnesemia 2012 (Given - Provider: Camryn Evans) 1055 (Given - Provider: Nura Lai, RN) [...] 11/15/2023 documented in this encounter Care Teams Paint Crew Supervisor Relationship Specialty Start Date End Date Elpidio Serrato MD PCP - General Internal Medicine 06/09/18 documented as of this encounter
--- OUTSIDE RECORDS SUMMARY | 2024-04-29 21:16 | XMS_ITS | Encounter Summary ---
Author Organization [facility] Address [address] [place] [address] Phone Care Team Providers Care Vacuum Tester Cans Name Role Phone Elpidio Serrato MD Primary Care Provider [phone] Encounter Details Date Type Department Care Team (Late st Contact Info) Description 11/20/2023 Orders Only [facility] Cardiology [address] [facility] Advanced Medicine 8th [place] [address] [place] [address] Rater, JAMES Dunlap [address] [facility] [address] [place] [address] Abnormal stress echocardiogram (Primary Dx) Social History [...] on file Legal Sex Female 3:59 AM TOBACCO WRAPPING MACHINE TENDER Gender Identity Female 05/13/2021 4:21 PM TOBACCO WRAPPING MACHINE TENDER Sexual Orientation Not on file documented as of this encounter Plan of Treatment Not on file documented as of this encounter Visit Diagnoses Diagnosis Abnormal stress echocardiogram- Primary documented in this encounter Orders Case Request Count Last Ordered Date First Orde red Date CASE REQUEST LIVESTOCK COUNTER 1 11/20/2023 documented in this encounter Care Teams Vacuum Tester Cans Relationship Specialty Start Date End Date Elpidio Serrato MD PCP - General Internal Medicine 06/09/18 documented as of this encounter
--- OUTSIDE RECORDS SUMMARY | 2024-04-29 21:16 | XMS_ITS | Encounter Summary ---
Author Organization [facility] Address [address] [place] [address] Phone Care Team Providers Care Route Inspector Name Role Phone Elpidio Serrato MD Primary Care Provider [phone] Reason for Referral * Consultation (Routine) - Pending Review Specialty Diagnoses / Procedures Referred By Contact Referred To Contact Physical Medicine and Rehabilitation Diagnoses Pain in both knees, unspecified chronicity Lia Mariano NP [address] [place] [address] Phone: tel:[phone] [facility] (All Locations) Referral ID Status Reason Start Date Expiration Date Visits Requested Visits Authorized [id number] Pending Review Specialty Services Required 11/19/2023 12/18/2024 1 1 Question Answer Please select the performing region: [facility] (All Locations) [[id number]] # of visits: 1 Comments Prefers [place] or [place] locations Encounter Details Date Type Department Care Team (Latest Contact Info) Description 11/19/2023 11:30 AM CDT Office Visit [facility] Endocrinology Metabolism and Lipid [address] [facility] Medicine [address] [place] [address] [place] [address] Lia Mariano NP [address] [place] [address] Benign essential hypertension (Primary Dx); Congestive heart [...] on file Legal Sex Female 3:59 AM STAKING ENGINEER Gender Identity Female 05/13/2021 4:21 PM STAKING ENGINEER Sexual Orientation Not on file documented [...] chest pain, neck/throat fullness. Current therapy Lantus/ [id number] units in morning Humalog 8 units with morning meals. 10 units in evening only if BG is > 150. metformin 500 mg AM Ozempic, 2 mg weekly - doses on Saturday. Jardiance 10 mg Daily. CGM Interpretation - Sensor: [employer] G6 Mobile - Wear time:99.8 - Indication [...] (CMS/HCC) (HCC) Coronary artery disease Diabetes mellitus ([facility]) Diabetic retinopathy ([facility]) Glaucoma Hypertension Multiparity History Of ___ Previous Pregnancies - 7 pregnancies, 2 children - C-sections. (Added by TW Conv) Nonproliferative diabetic retinopathy (HCC) 11/03/2009 Personal history of other specified conditions History of chest pain - Stress test negative on 08/01/06 (Added by TW Conv) Thyroid disease Past Surgical History: Procedure Laterality Date CATARACT EXTRACTION Right 06/14/2022 CE/IOL + goniotomy CO APPENDECTOMY unkown dates per pt CO DELIVERY ONLY Section - in 1972 and 1975 (Added by TW Conv) CO TENDON SHEATH INCISION Hand Incision Tendon Sheath [...] to orthopedics. Complete following hear cath. --LEONARD [facility] Division of Endocrinology, Metabolism, & Lipid Research [address] [place] [address] Cosigned by Merna Bell MD at 11/19/2023 [...] chronicity documented in this encounter Care Teams Route Inspector Relationship Specialty Start Date End Date Elpidio Serrato MD PCP - General Internal Medicine 06/09/18 documented as of this encounter
--- OUTSIDE RECORDS SUMMARY | 2024-04-29 21:16 | XMS_ITS | Encounter Summary ---
Author Organization [facility] Healthcare Address [address] [place] [address] Care Team Providers Care Recreational Specialist Name Role Phone Elpidio Serrato MD Primary Care Provider [phone] Reason for Visit * Auth/Cert (Routine) Specialty Diagnoses / Procedures Referred By Contac t Referred To Contact Diagnoses Abnormal stress echocardiogram Abnormal stress echocardiogram [R94.39] Procedures Right Left Heart Catheterization with Coronary Angiography with or without Left Ventriculography [id number] Referral ID Status Reason Start Date Expiration Date Visits Re quested Visits Authorized [id number] 1 1 Encounter Details Date Type Department Care Team (Late st Contact Info) Description 11/25/2023 6:46 AM CDT - 11/25/2023 2:00 PM CDT Hospital Encounter [facility] [address] [place] [address] Kvng Gibson MD [address] [address] Abnormal stress echocardiogram Discharge Disposition: Discharge to [...] on file Legal Sex Female 3:59 AM CHUCK TENDER Gender Identity Female 05/13/2021 4:21 PM CHUCK TENDER Sexual Orientation Not on file documented [...] Discharge Instructions * Discharge Instructions* Adrianna Vargas, DEVELOPMENT MECHANIC - 11/25/2023 10:12 AM CDT Discharge Instructions [...] medication please notify your primary provider and/or microsoft application developer immediately. If you notice bleeding at the [...] M-F call our Outpatient Nurse Coordinators at [phone]. If you need to speak to someone after 5pm please call [facility] at [phone] and ask the grinder set up operator universal topage the Cardiac Reed Press Feeder Fellow emergency communications dispatcher. documented in this encounter Medications at Time [...] in this encounter Consult Notes * Jessica Gutierrez NP - 11/25/2023 10:13 AM CDT Cardiothoracic Surgery Consult Referring Physician/Service: Dr. Gibson Consult Attending Staffing Case: Dr. Treviño Reason for consult: MV CAD, CABG evaluation No chief complaint on file. Patient is a 73 y.o. female with chief complaint of positive stress test. HPI: 73y/o F with DM, glaucoma, HTN, hypothyroidism, CKD-stage3, HLD,obesity, recently positive stress test who presented to [facility] today for LHC. Over the past [...] LHC which showed severe MV CAD with PHARMACY INTAKE TECHNICIAN of RCA, heavily calcified disease in [...] Date Cataract CHF (congestive heart failure) (CMS/HCC) ([facility]) Coronary artery disease Diabetes mellitus (HCC) Diabetic [...] CATARACT EXTRACTION Right 06/14/2022 CE/IOL + goniotomy IA APPENDECTOMY unkown dates per pt IA DELIVERY ONLY Section - in 1972 and 1975 (Added by TW Conv) IA TENDON SHEATH INCISION Hand Incision Tendon Sheath [...] 650 mg, oral, Q4H PRN, Adrianna Vargas, DEVELOPMENT MECHANIC Carrier Fluids for Secondary Infusion - 0.9% Sodium Chloride, 30 mL, intravenous, PRN, Adrianna Vargas, DEVELOPMENT MECHANIC sodium chloride 0.9% flush 0.5-20 mL, 0.5-20 mL, intra-catheter, Q8H LAMONTE, Adrianna Vargas, DEVELOPMENT MECHANIC sodium chloride 0.9% flush 0.5-20 mL, 0.5-20 mL, intra-catheter, PRN, Adrianna Vargas, DEVELOPMENT MECHANIC [COMPLETED] sodium chloride 0.9% bolus 267 mL, [...] 11/25/2023 , Coags: No results found for: IA , PT , PTT , APTT , [...] of test: 11/15/2023 Hospital #: 0 Location: [facility] Interpreted by: Vandana Isaacs MD Sales Applications Engineer: Olimpia Brandon RDCS RN: Shelby Jacobo RN Reason for Test: Dyspnea Study quality: Technically good Referring Physician: GAURAV ROBLERO MD Contrast Agent: 3.0 ml Optison Administered BASELINE STUDY: Wall Motion Scoring (1=Normal 2=Hypo 3=Akinetic 4=Dyskin./Aneurysm 0=Not visualized) Parasternal Long [place]:MAS=1 BAS=1 MIL=2 ROBERT=2 Parasternal Short [place]:MAS=1 MIS=1 VA=1 MIL=2 MAL=1 MA=1 Apical 4 Chambers:=1 MIS=1 BIS=3 BAL=1 MAL=1 AL=1 AC=3 Apical 2 Chambers:AI=1 VA=1 BI=3 BA=1 MA=1 AA=2 AC=3 Ejection Fraction: [...] No MS/ mild MR; No TR; No IA. Diastolic Function: Grade I (impaired relaxation) with nl est filling pressures.Unable to estimate PASP d/t inadequate TR jet. Baseline HR: 77 Baseline BP: 115/57 Conduction Defects: RBBB + LAFB Resting ECG Comments: [facility] Medications: Lasix, Aspirin, Lipitor, evothyroxine, Metformin, Insulin Meds held: none POST DOBUTAMINE STUDY: Wall Motion Scoring (1=Normal 2=Hypo 3=Akinetic 4=Dyskin./Aneurysm 0=Not visualized) Parasternal Long [place]:MAS=1 BAS=1 MIL=3 ROBERT=3 Parasternal Short [place]:MAS=1 MIS=1 VA=1 MIL=3 MAL=1 MA=1 Apical 4 Chambers:=1 MIS=1 BIS=1 BAL=1 MAL=1 AL=1 AC=2 Apical 2 Chambers:AI=1 VA=1 BI=3 BA=1 MA=1 AA=1 AC=2 Intravenous dobutamine [...] MD By signing this report, the attending microsoft application developer certifies that he or she has personally [...] system. Occluded in the proximal segment with [id number] septal collaterals from the LAD COMPLICATIONS: None. [...] recently positive stress test who presented to [facility] today for LHC. LHC today showed severe MV CAD with PHARMACY INTAKE TECHNICIAN of RCA, heavily calcified disease in [...] Chloride 30 mL intravenous PRN Adrianna Vargas, DEVELOPMENT MECHANIC sodium chloride 0.9% bolus 267 mL 3 mL/kg intravenous Once Adrianna Vargas, JAMES Followed by sodium chloride 0.9% infusion 1 mL/kg/hr intravenous Continuous Adrianna Vargas, JAMES sodium chloride 0.9% flush 0.5-20 mL 0.5-20 mL intra-catheter Q8H LAMONTE Adrianna Vargas, JAMES sodium chloride 0.9% flush 0.5-20 mL 0.5-20 mL intra-catheter PRN Adrianna Vargas, DEVELOPMENT MECHANIC Laboratory review: Chemistry BMP No results found for: GLUCOSE , CALCIUM , SODIUM , POTASSIUM , CO2 , BUNSER , CREATININE , CBC:No results found for: WBC , RBC , HGB , HCT , MCV , MCH , MCHC , RDW , RDWCV , RDWSD , MPV , NRBC , NRBCABS , NRBCPCT , and Coags: No results found for: IA , PT , PTT , APTT , [...] : 1950 Date of Procedure: 11/25/2023 ORDERING METEOROLOGIST LIAISON: Surgeon(s): Kvng Gibson MD Procedure(s): Right Left Heart Catheterization with Coronary Angiography with or without Left Ventriculography [id number] Requested Diagnostic: [] Coronary Angiograms Only [] [...] + stress test on 11/15/23. Referred for [facility] for further evaluation. ALLERGIES: Pseudoephedrine and Valacyclovir [...] Yes [] No [] Contraindicated Indications for Reed Press Feeder visit (Select all that apply): [] ACS [...] ESRD [] Dialysis [] HD []PD: Prior VA: [] Yes [x] No If Yes, Most Recent VA Date: Tobacco Use Social History Tobacco Use [...] Newly Diagnosed: [x] Yes [] No [facility] Class: [] Class I [] Class [...] 73yoF with abnormal stress test here for [facility] Clinical Frailty Scale: [] 1: Very [...] and Assessment Completed by: Name: Adrianna Vargas DEVELOPMENT MECHANIC-C Date: 11/25/23 Time: 729 Cosigned by Kvng [...] were not included. ?? Cardiovascular Procedure Center [facility] [address], [address] [place] [id number] CORONARY ANGIOGRAM REPORT Patient: Isabelle Lutz : ?? 1950 MR number: [id number] Date of Service: 11/25/2023 Gear Grinding Machine Operator: ?? Kvng Gibson MD Referring physician: ?? [...] obtained. The patient was brought to the labor arbitrator and placed on the table. The RIGHT [...] left ventriculogram was done. I provided direct [id number] moderate conscious sedation which administered by independent [...] system. ??Occluded in the proximal segment with [id number] septal collaterals from the LAD COMPLICATIONS: None. DIAGNOSTIC Gaurav Roblero DEVELOPMENT MECHANIC CV CARDIAC CATH PROCEDURES Final Result * (ABNORMAL) CBC without differential (11/25/2023 8:50 AM CDT) [facility] Signature WBC 7.0 3.8 - 9.9 K/cumm Hgb 10.6(L) 11.9 - 15.5 g/dL [facility] Hct 32.2(L) 35.6 - 45.5 % [facility] Plt 165 150 - 400 K/cumm [facility] MPV 11.2 9.1 - 12.3 fL [facility] RBC 3.65(L) 3.90 - 5.20 M/cumm [facility] MCV 88.2 81.3 - 96.4 fL [facility] MCH 29.0 27.1 - 33.3 pg [facility] MCHC 32.9 32.3 - 35.7 g/dL [facility] RDW CV 12.5 11.1 - 14.9 % [facility] RDW SD 40.1 35.7 - 48.1 fL [facility] NRBC abs 0.00 0.00 - 0.01 K/cumm [facility] Blood 11/25/2023 8:50 AM CDT 11/25/2023 9:22 AM CDT Narrative [facility] - 11/25/2023 9:37 AM CDT To be drawn after hydration bolus complete us Adrianna Vargas NP LAB BLOOD ORDERABLES Final Re sult [facility] [place] [address] * POCT glucose (11/25/2023 8:06 AM CDT) [facility] Signature Glucose, POC 111 70 - 199 mg/dL Blood 11/25/2023 8:06 AM CDT 11/25/2023 8:06 AM CDT us Kvng Gibson MD LAB POCT ORDERABLES - DEVICE Final Result [facility] [place] [address] documented in this encounter Visit Diagnoses Diagnosis [...] 11/25/2023 documented in this encounter Care Teams Recreational Specialist Relationship Specialty Start Date End Date Elpidio Serrato MD PCP - General Internal Medicine 06/09/18 documented as of this encounter
--- OUTSIDE RECORDS SUMMARY | 2024-04-29 21:16 | XMS_ITS | Encounter Summary ---
Author Organization [facility] Healthcare Address [address] [place] [address] Care Team Providers Care Seedling Puller Name Role Phone Elpidio Serrato MD Primary Care Provider [phone] Encounter Details Date Type Department Care Team (Late st Contact Info) Description 11/08/2023 12:[address] [facility] Advanced Medicine [facility] Advanced Medicine ([facility]) [address] [place] [id number] Congestive heart failure, unspecified HF chronicity, unspecified [...] file Legal Sex Female 3:59 AM ASSISTANT DRAFTER Gender Identity Female 05/13/2021 4:21 PM ASSISTANT DRAFTER Sexual Orientation Not on file documented as [...] LAB BLOOD ORDERABLES Fin al Result [facility] Department [place] [address] * (ABNORMAL) Basic metabolic panel (11/08/2023 12:33 PM CDT) Sodium 145 135 - 145 mmol/L Potassium, pl 4.0 3.3 - 4.9 mmol/L [facility] Chloride 107 97 - 110 mmol/L [facility] CO2 24 22 - 32 mmol/L [facility] Anion gap 14 2 - 15 mmol/L [facility] BUN 36(H) 6 - 25 mg/dL [facility] Creatinine 1.61(H) 0.60 - 1.10 mg/dL [facility] Glucose 133 70 - 199 mg/dL [facility] Comment: Interpretive Data Fasting glucose >/= [...] 2022. Calcium 9.5 8.5 - 10.3 mg/dL [facility] Blood 11/08/2023 12:3 3 PM CDT 11/08/2023 12:39 PM CDT Ben Chiu NP LAB BLOOD ORDERABLES [facility] al Result [facility] Department [place] [address] documented in this encounter Visit Diagnoses Diagnosis Congestive heart failure, unspecified HF chronicity, unspecified heart failure type (HCC) documented in this encounter Care Teams Seedling Puller Relationship Specialty Start Date End Date Elpidio Serrato MD PCP - General Internal Medicine 06/09/18 documented as of this encounter
--- OUTSIDE RECORDS SUMMARY | 2024-04-29 21:16 | XMS_ITS | Encounter Summary ---
Author Organization [facility] Address [address] [place] [address] Phone Care Team Providers Care Director Of Spa And Guest Experience Name Role Phone Elpidio Serrato MD Primary Care Provider [phone] Reason for Referral * Consultation (Routine) - Pending Review Specialty Diagnoses / Procedures Referred By Constantino alvarado Referred To Contact Sleep Medicine Diagnoses Dyspnea on exertion Congestive heart failure, unspecified HF chronicity, unspecified heart failure type (HCC) ROSE (dyspnea on exertion) Gaurav Collier NP Phone: tel: fax: [facility] - Sleep Medicine [address] [place] [address] [address] [place] [address] Phone: tel: fax: Referral ID Status Reason Start Date Expiration Date Visits Requested Visits Authorized [id number] Pending Review Specialty Services Required 11/08/2023 12/07/2024 1 1 Question Answer Please select the performing region: [facility] [[id number]] Please select the performing department: [facility] RES [facility] NEUROLOGY [[id number]] # of visits: 1 * Cardiology (Routine) - Closed Specialty Diagnoses / Procedures Referred By Constantino t Referred To Contact Diagnoses Dyspnea on exertion Congestive heart failure, unspecified HF chronicity, unspecified heart failure type (HCC) ROSE (dyspnea on exertion) Procedures Stress Echo Pharmacologic W Doppler/CF Gaurav Collier NP Phone: tel: fax: [facility] [address] [place] [address] Referral ID Status Reason Start Date Expiration Date Visits Re quested Visits Authorized [id number] Closed 11/08/2023 12/07/2024 1 1 Reason for Visit * Consultation (Routine) - Closed Specialty Diagnoses / Procedures Referred By Contac t Referred To Contact Cardiology Diagnoses Dyspnea on exertion Merna Bell MD [address] [facility] [address] [place] [address] Phone: tel: fax: [facility] (All Locations) Referral ID Status Reason Start Date Expiration Date V isits Requested Visits Authorized [id number] Closed Specialty Services Required 10/30/2023 11/28/2024 1 1 Encounter Details Date Type Department Care Team (Late st Contact Info) Description 11/08/2023 12:30 PM CDT Office Visit [facility] Cardiology [address] [facility] [address] [place] [address] [place] [address] Gaurav Collier NP [address] [facility] [address] [place] [address] Dyspnea on exertion (Primary Dx); [...] on file Legal Sex Female 3:59 AM CIRCUIT BREAKER SUPERVISOR Gender Identity Female 05/13/2021 4:21 PM CIRCUIT BREAKER SUPERVISOR Sexual Orientation Not on file documented [...] on lasix Please call for any questions [phone] documented in this encounter Progress Notes * [...] for dyspnea. She was referred by her railway traction line worker. She complained of dyspnea and blood work revealed an elevated proBNP, elevated creatinine and elevated potassium. Her Olmesartan was stopped on October 28. She was started on 20 mg Lasix on 10/29. She has lost 4 lb since then and feels better. She has occasional chest tightness. She endorses Nelson heart Association class 3 symptoms. REVIEW OF [...] 3 months to establish with a general stem shaper Gaurav Collier NP documented in this encounter [...] of test: 11/15/2023 Hospital #: 0 ?Location: [facility] Interpreted by: Vnadana Isaacs MD Process Designer: Olimpia Brandon RDCS RN: Shelby Jacobo RN Reason for Test: Dyspnea Study quality: Technically good Referring Physician: GAURAV COLLIER MD Contrast Agent: 3.0 ml Optison Administered BASELINE STUDY: Wall Motion Scoring (1=Normal 2=Hypo 3=Akinetic 4=Dyskin./Aneurysm 0=Not visualized) Parasternal Long [place]:MAS=1 BAS=1 MIL=2 ROBERT=2 Parasternal Short [place]:MAS=1 MIS=1 AL=1 MIL=2 MAL=1 MA=1 Apical 4 Chambers:=1 MIS=1 BIS=3 BAL=1 MAL=1 AL=1 AC=3 Apical 2 Chambers:AI=1 AL=1 BI=3 BA=1 MA=1 AA=2 AC=3 Ejection Fraction: [...] No MS/ mild MR; No TR; No MS. Diastolic Function: Grade I (impaired relaxation) with nl est filling pressures.Unable to estimate PASP d/t inadequate TR jet. Baseline HR: 77 Baseline BP: 115/57 Conduction Defects: RBBB + LAFB Resting ECG Comments: Oriana Jensen Medications: Lasix, Aspirin, Lipitor, evothyroxine, Metformin, Insulin Meds held: none POST DOBUTAMINE STUDY: Wall Motion Scoring (1=Normal 2=Hypo 3=Akinetic 4=Dyskin./Aneurysm 0=Not visualized) Parasternal Long [place]:MAS=1 BAS=1 MIL=3 ROBERT=3 Parasternal Short [place]:MAS=1 MIS=1 AL=1 MIL=3 MAL=1 MA=1 Apical 4 Chambers:=1 MIS=1 BIS=1 BAL=1 MAL=1 AL=1 AC=2 Apical 2 Chambers:AI=1 AL=1 BI=3 BA=1 MA=1 AA=1 AC=2 Intravenous dobutamine [...] MD By signing this report, the attending stem shaper certifies that he or she has personally supervised and interpreted the echocardiogram and has reviewed and or edited and agrees with the written comments contained within the report. Procedure Note Vandana Isaacs MD - 11/15/2023 Patient name: Isabelle Lutz Date of test: 11/15/2023 Hospital #: 0 Location: [facility] Interpreted by: Vandana Isaacs MD Process Designer: Olimpia Brandon RDCS RN: Shelby Jacobo RN Reason for Test: Dyspnea Study quality: Technically good Referring Physician: GAURAV COLLIER MD Contrast Agent: 3.0 ml Optison Administered BASELINE STUDY: Wall Motion Scoring (1=Normal 2=Hypo 3=Akinetic 4=Dyskin./Aneurysm 0=Not visualized) Parasternal Long [place]:MAS=1 BAS=1 MIL=2 ROBERT=2 Parasternal Short [place]:MAS=1 MIS=1 AL=1 MIL=2 MAL=1 MA=1 Apical 4 Chambers:=1 MIS=1 BIS=3 BAL=1 MAL=1 AL=1 AC=3 Apical 2 Chambers:AI=1 AL=1 BI=3 BA=1 MA=1 AA=2 AC=3 Ejection Fraction: [...] No MS/ mild MR; No TR; No MS. Diastolic Function: Grade I (impaired relaxation) with nl est filling pressures.Unable to estimate PASP d/t inadequate TR jet. Baseline HR: 77 Baseline BP: 115/57 Conduction Defects: RBBB + LAFB Resting ECG Comments: Oriana Jensen Medications: Lasix, Aspirin, Lipitor, evothyroxine, Metformin, Insulin Meds held: none POST DOBUTAMINE STUDY: Wall Motion Scoring (1=Normal 2=Hypo 3=Akinetic 4=Dyskin./Aneurysm 0=Not visualized) Parasternal Long [place]:MAS=1 BAS=1 MIL=3 ROBERT=3 Parasternal Short [place]:MAS=1 MIS=1 AL=1 MIL=3 MAL=1 MA=1 Apical 4 Chambers:=1 MIS=1 BIS=1 BAL=1 MAL=1 AL=1 AC=2 Apical 2 Chambers:AI=1 AL=1 BI=3 BA=1 MA=1 AA=1 AC=2 Intravenous dobutamine [...] MD By signing this report, the attending stem shaper certifies that he or she has personally supervised and interpreted the echocardiogram and has reviewed and or edited and agrees with the written comments contained within the report. Gaurav Collier SALES DEVELOPMENT COORDINATOR CV ECHO PROCEDURES Edited * (ABNORMAL) Basic metabolic panel (11/08/2023 12:33 PM CDT) Pathologist [facility] Sodium 145 135 - 145 mmol/L Potassium, pl 4.0 3.3 - 4.9 mmol/L [facility] Chloride 107 97 - 110 mmol/L [facility] CO2 24 22 - 32 mmol/L [facility] Anion gap 14 2 - 15 mmol/L [facility] BUN 36(H) 6 - 25 mg/dL [facility] Creatinine 1.61(H) 0.60 - 1.10 mg/dL [facility] Glucose 133 70 - 199 mg/dL [facility] Comment: Interpretive Data Fasting glucose >/= [...] 2022. Calcium 9.5 8.5 - 10.3 mg/dL [facility] Blood 11/08/2023 12:3 3 PM CDT 11/08/2023 12:39 PM CDT Ben Vion Chiu SALES DEVELOPMENT COORDINATOR LAB BLOOD ORDERABLES Fin al Result [facility] Department [place] [address] * ECG 12 lead (11/08/2023 11:39 AM CDT) us Gaurav Rater SALES DEVELOPMENT COORDINATOR ECG ORDERABLES Final Result documented in this encounter Visit Diagnoses Diagnosis Dyspnea on exertion- Primary Other dyspnea and respiratory abnormality Congestive heart failure, unspecified HF chronicity, unspecified heart failure type (HCC) ROSE (dyspnea on exertion) Other dyspnea and respiratory abnormality Dyspnea on exertion Other dyspnea and respiratory abnormality Congestive heart failure, unspecified HF chronicity, unspecified heart failure type (HCC) ROES (dyspnea on exertion) Other dyspnea and respiratory [...] 11/08/2023 documented in this encounter Care Teams Director Of Spa And Guest Experience Relationship Specialty Start Date End Date Elpidio Serrato MD PCP - General Internal Medicine 06/09/18 documented as of this encounter
--- OUTSIDE RECORDS SUMMARY | 2024-04-29 21:16 | XMS_ITS | Encounter Summary ---
Author Organization [facility] Healthcare Address [address] [place] [address] Care Team Providers Care Automatic Maintainer Name Role Phone Elpidio Serrato MD Primary Care Provider [phone] Reason for Visit * Reason Comments [facility] Patient Eligibility Review Encounter Details Date Type Department Care Team (Late st Contact Info) Description 11/18/2023 [facility]OP/CHAP Initial Eligibility Review [facility] OP CASE MANAGEMENT [address] [place] [address] Inge Dunbar, [facility] [address] [facility] ([facility]) Mailstop [phone] [place] [address] Social History Tobacco Use Types Packs/Day Years [...] file Legal 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
--- OUTSIDE RECORDS SUMMARY | 2024-04-29 21:16 | XMS_ITS | Encounter Summary ---
Author Organization [facility] Address [address] [place] [address] Care Team Providers Care Bonbon Cream Warmer Name Role Phone Elpidio Serrato MD Primary Care Provider [phone] Reason for Referral * Cardiology (Routine) - Closed Specialty Diagnoses / Procedures Referred By Constantino alvarado Referred To Contact Diagnoses Dyspnea on exertion Congestive heart failure, unspecified HF chronicity, unspecified heart failure type (HCC) ROSE (dyspnea on exertion) Procedures Stress Echo Pharmacologic W Doppler/CF Gaurav Collier NP Phone: tel: fax: [address] [address] Referral ID Status Reason Start Date Expiration Date Visits Re quested Visits Authorized [id number] Closed 11/08/2023 12/07/2024 1 1 Reason for Visit * Auth/Cert (Routine) Specialty Diagnoses / Procedures Referred By Contqi t Referred To Contact Diagnoses Abnormal cardiovascular stress test Abnormal stress echocardiogram Stable angina (HCC) Procedures n/a Referral ID Status Reason Start Date Expiration Date Visits Re quested Visits Authorized [id number] 1 1 Encounter Details Date Type Department Care Team (Latest Contact Info) Description 11/15/2023 9:28 AM CDT - 11/15/2023 11:59 PM CDT Hospital Encounter [facility] Cardiac Diagnostic Lab [address] [place] [address] Dyspnea on exertion; Congestive heart failure, unspecified [...] on file Legal Sex Female 3:59 AM SENIOR SQL DBA Gender Identity Female 05/13/2021 4:21 PM SENIOR SQL DBA Sexual Orientation Not on file documented as [...] of test: 11/15/2023 Hospital #: [id number] ?Location: [facility] Interpreted by: Vandana Isaacs MD Blasting Clay Miner: Olimpia Brandon RDCS RN: Shelby Jacobo RN Reason for Test: Dyspnea Study quality: Technically good Referring Physician: GAURAV COLLIER MD Contrast Agent: 3.0 ml Optison Administered BASELINE STUDY: Wall Motion Scoring (1=Normal 2=Hypo 3=Akinetic 4=Dyskin./Aneurysm 0=Not visualized) Parasternal Long [place]:MAS=1 BAS=1 MIL=2 ROBERT=2 Parasternal Short [place]:MAS=1 MIS=1 KY=1 MIL=2 MAL=1 MA=1 Apical 4 Chambers:=1 MIS=1 BIS=3 BAL=1 MAL=1 AL=1 AC=3 Apical 2 Chambers:AI=1 KY=1 BI=3 BA=1 MA=1 AA=2 AC=3 Ejection Fraction: [...] RBBB + LAFB Resting ECG Comments: Oriana Ramireza.[facility] Medications: Lasix, Aspirin, Lipitor, evothyroxine, Metformin, Insulin Meds held: none POST DOBUTAMINE STUDY: Wall Motion Scoring (1=Normal 2=Hypo 3=Akinetic 4=Dyskin./Aneurysm 0=Not visualized) Parasternal [place]:MAS=1 BAS=1 MIL=3 ROBERT=3 Parasternal [place]:MAS=1 MIS=1 KY=1 MIL=3 MAL=1 MA=1 Apical 4 Chambers:=1 MIS=1 BIS=1 BAL=1 MAL=1 AL=1 AC=2 Apical 2 Chambers:AI=1 KY=1 BI=3 BA=1 MA=1 AA=1 AC=2 Intravenous dobutamine [...] By signing this report, the attending manager materials management certifies that he or she has personally supervised and interpreted the echocardiogram and has reviewed and or edited and agrees with the written comments contained within the report. Procedure Note Vandana Isaacs MD - 11/15/2023 Patient name: Isabelle Lutz Date of test: 11/15/2023 [facility] #: [id number] Location: [facility] Interpreted by: Vandana Isaacs MD Blasting Clay Miner: Olimpia Brandon RY RN: Shelby Jacobo RN Reason for Test: Dyspnea Study quality: Technically good Referring Physician: GAURAV COLLIER MD Contrast Agent: 3.0 ml Optison Administered BASELINE STUDY: Wall Motion Scoring (1=Normal 2=Hypo 3=Akinetic 4=Dyskin./Aneurysm 0=Not visualized) Parasternal [place]:MAS=1 BAS=1 MIL=2 ROBERT=2 Parasternal [place]:MAS=1 MIS=1 KY=1 MIL=2 MAL=1 MA=1 Apical 4 Chambers:=1 MIS=1 BIS=3 BAL=1 MAL=1 AL=1 AC=3 Apical 2 Chambers:AI=1 KY=1 BI=3 BA=1 MA=1 AA=2 AC=3 Ejection Fraction: [...] 2=Hypo 3=Akinetic 4=Dyskin./Aneurysm 0=Not visualized) Parasternal [place]:MAS=1 BAS=1 MIL=3 ROBERT=3 Parasternal [place]:MAS=1 MIS=1 KY=1 MIL=3 MAL=1 MA=1 Apical 4 Chambers:=1 MIS=1 BIS=1 BAL=1 MAL=1 AL=1 AC=2 Apical 2 Chambers:AI=1 KY=1 BI=3 BA=1 MA=1 AA=1 AC=2 Intravenous dobutamine [...] By signing this report, the attending manager materials management certifies that he or she has personally [...] 11/15/2023 documented in this encounter Care Teams Bonbon Cream Warmer Relationship Specialty Start Date End Date Elpidio Serrato MD PCP - General Internal Medicine 06/09/18 documented as of this encounter
--- OUTSIDE RECORDS SUMMARY | 2024-04-29 21:16 | XMS_ITS | Encounter Summary ---
Author Organization [facility] Address [address] [place] [address] Phone Care Team Providers Care Sales Team Member Name Role Phone Elpidio Serrato MD Primary Care Provider [phone] Encounter Details Date Type Department Care Team (Late st Contact Info) Description 11/18/2023 Telephone [facility] Cardiology [address] [facility] 8th [place] [address] [place] [address] Destiny Charles Social History Tobacco [...] on file Legal Sex Female 3:59 AM TACTICAL INTELLIGENCE OFFICER Gender Identity Female 05/13/2021 4:21 PM TACTICAL INTELLIGENCE OFFICER Sexual Orientation Not on file documented [...] were not included. You routed conversation to [facility] Clinical Pool2 hours ago (9:21 AM) Kvng Gibson MD You2 hours ago (9:14 AM) CM If those do not work patient I can also do next the 18 Note Nori Ramirez RN You2 hours ago (9:11 AM) MAKAYLA Calderon-see Dr. Gibson's available dates. When you have a date/schedule pt, please let his clerical secretary Yisel Keys know so she can [...] 11/18/2023 10:35 AM CDT Msg sent to [facility] for next avail L/RHC dates. * Telephone Encounter - Yumiko Alejo RN - 11/18/2023 8:50 AM CDT Called and s/w patient - OK to sched pt for C? * Telephone Encounter - Destiny Charles - 11/18/2023 8:02 AM CDT ADDIE PT STATES WAS ADMITTED TO [facility] 11/14 FOLLOWING ABNORMAL STRESS ECHO. STATES PER DR CONLEY NEEDS [facility] KIM WITH DR REAL documented in this encounter Plan of Treatment Not on file documented as of this encounter Visit Diagnoses Not on filedocumented in this encounter Care Teams Sales Team Member Relationship Specialty Start Date End Date Elpidio Serrato MD PCP - General Internal Medicine 06/09/18 documented as of this encounter
--- OUTSIDE RECORDS SUMMARY | 2024-04-29 21:17 | XMS_ITS | Encounter Summary ---
Author Organization [facility] Address [address] [place] [address] Phone Care Team Providers Care Brazer Furnace Name Role Phone Elpidio Serrato MD Primary Care Provider [phone] Reason for Referral * Consultation (Routine) - Closed Specialty Diagnoses / Procedures Referred By Constantino alvarado Referred To Contact Cardiology Diagnoses Dyspnea on exertion Merna Bell MD [address] [facility] [address] [place] [address] Phone: tel: fax: [facility] (All Locations) Referral ID Status Reason Start Date Expiration Date V isits Requested Visits Authorized [id number] Closed Specialty Services Required 10/30/2023 11/28/2024 1 1 Question Answer Please select the performing region: [facility] (All Locations) [167] Is this referral for the [facility]? 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 - I will re-order a stress test to be done at [facility], hopefully in the near future. Addition work-up [...] Referral Reason: Specialty Services Required Referral Location: [facility] (All Locations) Requested Specialty: Cardiology Number of [...] AM CDT) NT PROBNP 1,605(H) <125 pg/mL [facility] 11/01/2023 8:30 AM CDT 11/01/2023 8:31 AM CDT Merna Bell MD LAB BLOOD ORDERABLES Final Re sult [facility] [address] [place] [address] * NOTE (11/01/2023 8:30 AM CDT) Note [facility] Comment: This urine was analyzed for the presence of WBC, RBC, bacteria, casts, and other formed elements. Only those elements seen were reported. 11/01/2023 8:30 AM CDT 11/01/2023 8:31 AM CDT Merna Bell MD LAB BLOOD ORDERABLES Final Re sult Performing Organization Address City/[facility]/ZIP Co de Phone Number [facility] [address] [place] [address] * (ABNORMAL) Urinalysis reflex to microscopic (11/01/2023 8:30 AM CDT) Color, ur YELLOW YELLOW [facility] Appearance, ur CLEAR CLEAR [facility] Specific gravity 1.018 1.001 - 1.035 [facility] pH, ur 5.5 5.0 - 8.0 [facility] Glucose, ur 2+(A) NEGATIVE [facility] Bilirubin, ur NEGATIVE NEGATIVE [facility] Ketones, ur NEGATIVE NEGATIVE [facility] Blood, ur NEGATIVE NEGATIVE [facility] Protein, ur, quant NEGATIVE NEGATIVE [facility] Nitrites, ur POSITIVE(A) NEGATIVE [facility] Leukocyte esterase, ur 2+(A) NEGATIVE [facility] WBC, ur 20-40(A) < OR = 5 /HPF [facility] RBC, ur NONE SEEN < OR = 2 /HPF [facility] Epithelial cells, squamous, ur 0-5 < OR = 5 /HPF [facility] Bacteria, ur, quant MANY(A) NONE SEEN /HPF [facility] Hyaline cast NONE SEEN NONE SEEN /LPF [facility] Urine 11/01/2023 8:30 AM CDT 11/01/2023 8:31 AM CDT Merna Bell MD LAB URINE ORDERABLES Final Re sult Performing Organization Address [facility]/ZIP Co de Phone Number [facility] [address] [place] [address] * Troponin I (11/01/2023 8:30 AM CDT) Troponin I 11 < OR = 47 ng/L [facility] Comment: In accord with published recommendations, serial testing of troponin I at intervals of 2 to 4 hours for up to 12 to 24 hours is suggested in order to corroborate a single troponin I result. An elevated troponin alone is not sufficient to make the diagnosis of [place]. Blood 11/01/2023 8:30 AM CDT 11/01/2023 8:31 AM CDT Merna Bell MD LAB BLOOD ORDERABLES Final Re sult Performing Organization Address [facility] Co de Phone Number [facility] [address] [place] [address] * (ABNORMAL) Renal function panel (11/01/2023 8:30 AM CDT) Glucose 103(H) 65 - 99 mg/dL [facility] Comment: ? Fasting reference interval For [...] Final Re sult [facility] [address] [place] [address] documented in this encounter Visit Diagnoses Diagnosis [...] 10/30/2023 documented in this encounter Care Teams Brazer Furnace Relationship Specialty Start Date End Date Elpidio Serrato MD PCP - General Internal Medicine 06/09/18 documented as of this encounter
--- OUTSIDE RECORDS SUMMARY | 2024-04-29 21:17 | XMS_ITS | Encounter Summary ---
Author Organization [facility] Address [address] [place] [address] Phone Care Team Providers Care Yoke Presser Name Role Phone Elpidio Serrato MD Primary Care Provider [phone] Encounter Details Date Type Department Care Team (Late st Contact Info) Description 11/04/2023 Telephone [facility] Cardiology [address] [facility] [facility] 8th [place] [address] [place] [address] Susannah Brennan Social History Tobacco [...] on file Legal Sex Female 3:59 AM DIRECTOR OF RESEARCH CENTER Gender Identity Female 05/13/2021 4:21 PM DIRECTOR OF RESEARCH CENTER Sexual Orientation Not on file documented as of this encounter Miscellaneous Notes * Telephone Encounter - Ruth Rosas - 11/04/2023 4:03 PM CDT Referring MD on [facility]. EKG and Stress in [facility]. * Telephone Encounter - Susannah Brennan - [...] you treated? Have you ever seen a Projector Operator in an office setting? 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 (If yes schedule in Sports Medicine clinic [] [] Patient History Questions Yes No Where/When/Notes Have you EVER been hospitalized for ANY cardiac issue? [x] [] [facility] Have you ever had any cardiac testing, imaging, or procedures? (Testing - echo, EKG, stress) (Imaging - Cardiac MRI, CT or calcium scoring) (Procedure - Ablation, Cardioversion, CABG, Cath) [x] [] Testing - [facility] Have you ever had a sleep study? [] [x] Do you have a device? If yes what type? (Pacemaker, Defibrillator, Implanted Loop Recorder) [] [x] If yes, where and when was device put in? Manager Of Change? ([employer], [employer], [place]) Appointment Date: 11/08/2023 Provider: Rater, MOTION PICTURES CARTOONIST Location: [facility] [x] Confirm appt date, time, [...] on filedocumented in this encounter Care Teams Yoke Presser Relationship Specialty Start Date End Date Elpidio Serrato MD PCP - General Internal Medicine 06/09/18 documented as of this encounter
--- OUTSIDE RECORDS SUMMARY | 2024-04-29 21:17 | XMS_ITS | Encounter Summary ---
Author Organization [facility] Address [address] [place] [address] Phone Care Team Providers Care Screen Tender Helper Name Role Phone Elpidio Serrato MD Primary Care Provider [phone] Encounter Details Date Type Department Care Team (Late st Contact Info) Description 10/30/[address] [facility] Endocrinology Metabolism and Lipid [address] [facility] [address] 13th [place] [address] [place] [address] Lia Mariano, WHIZZER [address] [place] [address] Social History Tobacco Use Types Packs/Day Years [...] on file Legal Sex Female 3:59 AM SEX THERAPIST Gender Identity Female 05/13/2021 4:21 PM SEX THERAPIST Sexual Orientation Not on file documented as [...] on filedocumented in this encounter Care Teams Screen Tender Helper Relationship Specialty Start Date End Date Elpidio Serrato MD PCP - General Internal Medicine 06/09/18 documented as of this encounter
--- OUTSIDE RECORDS SUMMARY | 2024-04-29 21:17 | XMS_ITS | Encounter Summary ---
Author Organization [facility] Address [address] [place] [address] Phone Care Team Providers Care Nursing Faculty Name Role Phone Elpidio Serrato MD Primary Care Provider [phone] Encounter Details Date Type Department Care Team (Late st Contact Info) Description 11/03/2023 Orders Only [facility] Endocrinology Metabolism and Lipid [address] [facility] [address] 13th [place] [address] [place] [address] Merna Bell MD [address] [facility] [address] [place], [place] [id number] Acute cystitis without hematuria (Primary Dx) Social [...] on file Legal Sex Female 3:59 AM TAKER DOWN Gender Identity Female 05/13/2021 4:21 PM TAKER DOWN Sexual Orientation Not on file documented as [...] Primary documented in this encounter Care Teams Nursing Faculty Relationship Specialty Start Date End Date Elpidio Serrato MD PCP - General Internal Medicine 06/09/18 documented as of this encounter
--- OUTSIDE RECORDS SUMMARY | 2024-04-29 21:17 | XMS_ITS | Encounter Summary ---
Author Organization [facility] Address [address] [place] [address] Phone Care Team Providers Care Wharf Worker Name Role Phone Elpidio Serrato MD Primary Care Provider [phone] Reason for Visit * Reason Onset Date Comments Letter and Labs 10/30/2023 Encounter Details Date Type Department Care Team (Late st Contact Info) Description 10/30/2023 Telephone [facility] Endocrinology Metabolism and Lipid [address] [facility] [address] 13th [place] [address] [place] [address] Martha Boyer RMA Letter and [...] on file Legal Sex Female 3:59 AM AIRCRAFT MANAGER Gender Identity Female 05/13/2021 4:21 PM AIRCRAFT MANAGER Sexual Orientation Not on file documented as of this encounter Miscellaneous Notes * Telephone Encounter - Martha Boyre RMA - 10/30/2023 9:09 AM CDT As requested by JAMES Fitzgerald, letter and labs were faxed over to pt PCP Elpidio Serrato at [phone]. documented in this encounter Plan of Treatment Not on file documented as of this encounter Visit Diagnoses Not on filedocumented in this encounter Care Teams Wharf Worker Relationship Specialty Start Date End Date Elpidio Serrato MD PCP - General Internal Medicine 06/09/18 documented as of this encounter
--- OUTSIDE RECORDS SUMMARY | 2024-04-29 21:18 | XMS_ITS | Encounter Summary ---
Author Organization [facility] Address [address] [place] [address] Phone Care Team Providers Care Cut Out Worker Name Role Phone Elpidio Serrato MD Primary Care Provider [phone] Encounter Details Date Type Department Care Team (Late st Contact Info) Description 10/29/2023 Orders Only [facility] Endocrinology Metabolism and Lipid [address] [facility] [address] 13th [place] [address] [place] [address] Lia Mariano, LAW FIRM RECEPTIONIST [address] [place] [address] Hypertension, unspecified type (Primary Dx) Social History [...] on file Legal Sex Female 3:59 AM FAMILY ENGAGEMENT SPECIALIST Gender Identity Female 05/13/2021 4:21 PM FAMILY ENGAGEMENT SPECIALIST Sexual Orientation Not on file documented [...] CDT 10/29/2023 8:22 PM CDT Lia Mariano LAW FIRM RECEPTIONIST LAB BLOOD ORDERABLES Phyllis l Result [facility] [address] [facility] [place] [address] documented in this encounter Visit Diagnoses Diagnosis [...] documented as of this encounter Care Teams Cut Out Worker Relationship Specialty Start Date End Date Elpidio Serrato MD PCP - General Internal Medicine 06/09/18 documented as of this encounter
--- OUTSIDE RECORDS SUMMARY | 2024-04-29 21:18 | XMS_ITS | Encounter Summary ---
Author Organization [facility] Address [address] [place] [address] Care Team Providers Care Field Marketing Lead Name Role Phone Elpidio Serrato MD Primary Care Provider [phone] Encounter Details Date Type Department Care Team (Latest Contact Info) Description 10/29/2023 9:30 AM CDT - 10/29/2023 11:59 PM CDT Hospital Encounter [place] [id number] Hypertension, unspecified type Discharge Disposition: Discharge to [...] on file Legal Sex Female 3:59 AM JACQUARD CARD CUTTER Gender Identity Female 05/13/2021 4:21 PM JACQUARD CARD CUTTER Sexual Orientation Not on file documented as [...] 10/29/2023 8:22 PM CDT us Lia Mariano FREELANCE DESIGNER LAB BLOOD ORDERABLES Phyllis alanis Result Performing Organization Address City/State/[facility] Co de Phone Number [facility] [address] [facility] [place] [address] documented in this encounter Visit Diagnoses Diagnosis Hypertension, unspecified type documented in this encounter Care Teams Field Marketing Lead Relationship Specialty Start Date End Date Elpidio Serrato MD PCP - General Internal Medicine 06/09/18 documented as of this encounter
--- OUTSIDE RECORDS SUMMARY | 2024-04-29 21:18 | XMS_ITS | Encounter Summary ---
Author Organization [facility] Address [address] [place] [address] Phone Care Team Providers Care Oil Well Fishing Tool Technician Name Role Phone Elpidio Serrato MD Primary Care Provider [phone] Encounter Details Date Type Department Care Team (Late st Contact Info) Description 10/29/2023 9:30 AM CDT Lab [facility] Endocrinology Metabolism and Lipid [address] [facility] 12th [address] [place] [address] Type 2 diabetes mellitus with [...] on file Legal Sex Female 3:59 AM MACHINE MOLDER SQUEEZE Gender Identity Female 05/13/2021 4:21 PM MACHINE MOLDER SQUEEZE Sexual Orientation Not on file documented as [...] CDT 10/29/2023 11:19 AM CDT Lia Mariano SOUND ENGINEERING TECHNICIAN LAB URINE ORDERABLES Phyllis l Result Performing Organization Address [facility] Co de Phone Number [facility] * (ABNORMAL) [...] AM CDT 10/29/2023 11:19 AM CDT Narrative [facility] CORE [facility] - 10/29/2023 1:02 PM CDT [...] l Result Performing Organization Address City/[facility]/ZIP Co de Phone Number [facility] * T4, free (10/29/2023 9:30 AM CDT) Free T4 1.38 0.80 - 1.80 ng/dL [facility] Blood 10/29/2023 9:30 AM CDT 10/29/2023 11:19 AM CDT Lia Mariano SOUND ENGINEERING TECHNICIAN LAB BLOOD ORDERABLES Phyllis l Result [facility] * TSH (10/29/2023 9:30 AM CDT) Pathologist [facility] TSH (Thyrotropin) 0.69 0.27 - 4.20 uIU/mL [facility] Blood 10/29/2023 9:30 AM CDT 10/29/2023 11:19 AM CDT Lia Mariano SOUND ENGINEERING TECHNICIAN LAB BLOOD ORDERABLES Phyllis l Result Performing Organization Address [facility] de Phone Number [facility] * CBC [...] CDT 10/29/2023 11:19 AM CDT Lia Mariano SOUND ENGINEERING TECHNICIAN LAB BLOOD ORDERABLES Phyllis l Result [facility] * (ABNORMAL) [...] CDT 10/29/2023 11:19 AM CDT Lia Mariano SOUND ENGINEERING TECHNICIAN LAB BLOOD ORDERABLES Phyllis l Result [facility] * Vitamin D 25 hydroxy (10/29/2023 9:30 AM CDT) Pathologist [facility] Vitamin D 83.0 20.0 - 100.0 ng/mL [facility] Comment: VITAMIN D DEFICIENCY = LESS THAN or EQUAL TO 20 ng/mL VITAMIN D INSUFFICIENCY = 21 - 29 ng/mL VITAMIN D SUFFICIENT = 30-100 ng/mL Blood 10/29/2023 9:30 AM CDT 10/29/2023 11:19 AM CDT Lia Mariano SOUND ENGINEERING TECHNICIAN LAB BLOOD ORDERABLES Phyllis l Result [facility] documented in this encounter Visit Diagnoses Diagnosis Type 2 diabetes mellitus with hyperlipidemia (HCC) Vitamin D deficiency Acquired hypothyroidism Unspecified hypothyroidism documented in this encounter Care Teams Oil Well Fishing Tool Technician Relationship Specialty Start Date End Date Elpidio Serrato MD PCP - General Internal Medicine 06/09/18 documented as of this encounter
--- OUTSIDE RECORDS SUMMARY | 2024-04-29 21:18 | XMS_ITS | Encounter Summary ---
Author Organization [facility] Address [address] [place] [address] Phone Care Team Providers Care Hospice Executive Director Name Role Phone Elpidio Serrato MD Primary Care Provider [phone] Encounter Details Date Type Department Care Team (Late st Contact Info) Description 08/26/2023 Orders Only [facility] Endocrinology Metabolism and Lipid [address] [facility] 13th [place] [address] [place] [address] Shirley Mcdonnell, RMA [address] [place] [address] Social History Tobacco Use Types Packs/Day Years [...] file Legal Sex Female 3:59 AM CONTENT CURATOR Gender Identity Female 05/13/2021 4:21 PM CONTENT CURATOR Sexual Orientation Not on file documented as [...] documented as of this encounter Care Teams Hospice Executive Director Relationship Specialty Start Date End Date Elpidio Serrato MD PCP - General Internal Medicine 06/09/18 documented as of this encounter
--- OUTSIDE RECORDS SUMMARY | 2024-04-29 21:18 | XMS_ITS | Encounter Summary ---
Author Organization [facility] Address [address] [place] [address] Phone Care Team Providers Care Icer Machine Operator Name Role Phone Elpidio Serrato MD Primary Care Provider [phone] Encounter Details Date Type Department Care Team (Latest Contact Info) Description 10/29/2023 9:00 AM CDT Office Visit [facility] Endocrinology Metabolism and Lipid [address] [facility] 13th [place] [address] [place] [address] Lia Mariano, MOLD SHAKER [address] [place] [address] Type 2 diabetes mellitus with hyperlipidemia (HCC) [...] on file Legal Sex Female 3:59 AM VEHICLE WASHER Gender Identity Female 05/13/2021 4:21 PM VEHICLE WASHER Sexual Orientation Not on file documented as [...] CATARACT EXTRACTION Right 06/14/2022 CE/IOL + goniotomy [place] APPENDECTOMY unkown dates per pt [place] DELIVERY ONLY Section - in 1972 and 1975 (Added by TW Conv) [place] TENDON SHEATH INCISION Hand Incision Tendon Sheath [...] Encounter POCT glucose POCT hemoglobin A1c --LEONARD [facility] Division of Endocrinology, Metabolism, & Lipid Research [address] [place] [address] Cosigned by Merna Bell MD at 11/02/2023 [...] CDT 10/29/2023 11:19 AM CDT Lia Mariano MOLD SHAKER LAB BLOOD ORDERABLES Phyllis l Result LYON [...] CDT 10/29/2023 11:19 AM CDT Lia Mariano MOLD SHAKER LAB BLOOD ORDERABLES Phyllis alanis Result LYON [...] CDT 10/29/2023 11:19 AM CDT Lia Mariano MOLD SHAKER LAB BLOOD ORDERABLES Phyllis l Result Performing Organization Address City/[facility] Co de Phone Number [facility] * TSH (10/29/2023 9:30 AM CDT) Pathologist [facility] TSH (Thyrotropin) 0.69 0.27 - 4.20 uIU/mL [facility] Blood 10/29/2023 9:30 AM CDT 10/29/2023 11:19 AM CDT Lia Mariano MOLD SHAKER LAB BLOOD ORDERABLES Phyllis l Result Performing Organization Address [facility] Co de Phone Number [facility] * T4, free (10/29/2023 9:30 AM CDT) Pathologist [facility] Free T4 1.38 0.80 - 1.80 ng/dL [facility] Blood 10/29/2023 9:30 AM CDT 10/29/2023 11:19 AM CDT Lia Mariano MOLD SHAKER LAB BLOOD ORDERABLES Phyllis l Result Performing Organization Address City/[facility] Co de Phone Number [facility] * Albumin Creatinine Ratio, Urine (10/29/2023 9:30 AM CDT) Microalb, Ur 7.9 0.0 - 22.9 mg/L [facility] Random Urine Creatinine 109.6 mg/dL [facility] Microalb/Creat Ratio 7.2 0.0 - 29.9 mg/g [facility] Urine 10/29/2023 9:30 AM CDT 10/29/2023 11:19 AM CDT Lia Mariano MOLD SHAKER LAB URINE ORDERABLES Phyllis l Result Performing Organization Address [facility]/ZIP Co de Phone Number [facility] * [...] [facility] [place] LDL Chol 92 <190 mg/dL [facility] Blood 10/29/2023 9:30 AM CDT 10/29/2023 11:19 AM CDT Narrative [facility] - 10/29/2023 1:02 PM CDT Current interpretive data was last updated April 14, 2021. For adults ages 40-79, the ACC/AHA recommends discussing your 10-year atherosclerotic cardiovascular disease risk with your health care provider. ??https://www.acc.org/ASCVDApp These lab test should be done fasting. This means do not eat or drink for at least 12 hours prior to getting your blood drawn. Lia Mariano MOLD SHAKER LAB BLOOD ORDERABLES Phyllis l Result [facility] * POCT hemoglobin A1c (10/29/2023 8:55 AM CDT) Hemoglobin A1C, POC 5.9 % Blood 10/29/2023 8:55 AM CDT us Lia Mariano MOLD SHAKER POINT OF CARE TEST ORDERA BLES Final Result * POCT glucose (10/29/2023 8:55 AM CDT) Glucose Blood, POC 99 mg/dL Blood 10/29/2023 8:55 AM CDT us Lia Mariano MOLD SHAKER POINT OF CARE TEST ORDERA BLES Final [...] documented as of this encounter Care Teams Icer Machine Operator Relationship Specialty Start Date End Date Elpidio Serrato MD PCP - General Internal Medicine 06/09/18 documented as of this encounter
--- OUTSIDE RECORDS SUMMARY | 2024-04-29 21:19 | XMS_ITS | Encounter Summary ---
Author Organization [facility] Address [address] [place] [address] Phone Care Team Providers Care Life Sciences Director Name Role Phone Elpidio Serrato MD Primary Care Provider [phone] Reason for Visit * Reason Comments Primary open angle glaucoma (POAG) of yesy th eyes, moderate s Encounter Details Date Type Department Care Team (Late st Contact Info) Description 07/15/2023 8:45 AM MICA PASTER Office Visit [facility] Ophthalmology [facility] [place] [address] Makayla Ramos MD [address] [place] [address] Primary open angle glaucoma (POAG) [...] on file Legal Sex Female 3:59 AM MICA PASTER Gender Identity Female 05/13/2021 4:21 PM MICA PASTER Sexual Orientation Not on file documented as [...] agree with the findings/plan of the Resident/Fellow PASTER documented in this encounter Miscellaneous Notes * Assessment & Plan Note - Makayla Ramos MD - 07/15/2023 8:54 AM MICA PASTER Associated Problem(s): Primary open angle glaucoma (POAG) of both eyes, moderate stage Doing well without concerns IOP at goal Continue current drops Follow 6 months with HVf/OCT OU PASTER * Assessment & Plan Note - Makayla Ramos MD - 07/15/2023 8:54 AM MICA PASTER Associated Problem(s): Pseudophakia of both eyes Lenses doing well PASTER documented in this encounter Plan of Treatment [...] Normal Normal Periphery Normal Normal Care Teams Life Sciences Director Relationship Specialty Start Date End Date Elpidio Serrato MD PCP - General Internal Medicine 06/09/18 documented as of this encounter
--- OUTSIDE RECORDS SUMMARY | 2024-04-29 21:19 | XMS_ITS | Encounter Summary ---
Author Organization [facility] Address [address] [place] [address] Care Team Providers Care Hook Up Driver Name Role Phone Elpidio Serrato MD Primary Care Provider [phone] Reason for Visit * Auth/Cert Specialty Diagnoses [...] Expiration Date Visits Re quested Visits Authorized [id number] 1 1 Encounter Details Date Type Department Care Team (Latest Contact Info) Description 08/16/2022 9:00 AM CDT - 08/16/2022 9:45 AM CDT Surgery [facility] Operating [facility] [place] [address] Makayla Ramos MD [address] [place] [address] EXTRACTION CATARACT - PHACOEMULSIFICATION AND LENS IMPLANT Surgery Details Date/Time Status Location OR Service Patient Class Case Cl ass Case Type Trauma Case? 08/16/2022 9:00 AM Posted [facility] CAM OR POD 4 P Ophthalmology Outpatient [...] on file Legal Sex Female 3:59 AM EMAIL OPERATIONS MANAGER Gender Identity Female 05/13/2021 4:21 PM EMAIL OPERATIONS MANAGER Sexual Orientation Not on file documented [...] your vision Whom to call with concerns: [phone] - [facility] or [phone] - [facility] If after hours, listen to the voicemail for instructions for contacting the Eye Doctor inventory control planner. Thank you for entrusting us with your eye care. * Attachments The following attachments cannot be sent through Care Everywhere. * [facility] PATHWAY TO EXCELLENT CARE AFTER SURGERY [...] Preoperative Evaluation Record Evaluation type/location: TPAP from [facility] Planned procedure site: [facility] CAM OR (Pod 4) Date: 08/03/22 [...] Cardiovascular Pertinent negatives: hypertension ; CAD ; SD ; CABG ; valvular heart disease; atrial [...] provided by telephone and electronically sent via Solasta. Patient verbalized understanding of preoperative plan. Blood bank needs for day of procedure: No type and screen needed Pending labs/tests include: POC Glucose The patient is on aspirin therapy for primary prevention. The bleeding risk for the planned procedure is insignificant and therefore aspirin can be continued throughout the periprocedural period. Please call the CPAP chart room clinician ([phone]) with any questions. TPAP complete Preoperative evaluation [...] TW Conv) ??? Nonproliferative diabetic retinopathy (CMS/HCC) ([facility]) 11/03/2009 ??? Personal history of [...] taking differently: Take 88 mcg by mouth business center representative before breakfast metFORMIN (GLUCOPHAGE) 500 mg tablet [...] goniotomy left eye. SURGEON: Makayla Ramos MD HEALTH COACH: Swapna Head MD Implants: Implant Name Type Inv. Item Serial No. Showroom Sales Assistant Lot No. LRB No. Used Action [employer] LENS IOL POSTERIOR BICONVEX OPTIC SINGLE PIECE ENVISTA 6.0X12.5 +18.0D HYDROPHOBIC ACRYLIC [id number] - [id number] - [id number] Lens [employer] Lens Iol Posterior Biconvex Optic Single Piece Envista 6.0x12.5 +18.0d Hydrophobic Acrylic [id number] [employer] [id number] Left 1 Implanted ANESTHESIA: MAC with Local [...] Preoperative Assessment and Planning CPAP Clinic Location: [facility] The night before your [...] (Patient takingdifferently: Take 88 mcg by mouth business center representative before breakfast) 90 tablet 3 metFORMIN (GLUCOPHAGE) [...] the skin) 9 mL 3 Implants Lens 37coins Lens Iol Posterior Biconvex Optic Single Piece Envista 6.0x12.5 +18.0d Hydrophobic Acrylic [id number] - [id number] - [id number] - Implanted (Right) Lens Inventory item: [employer] Lens Iol Posterior Biconvex Optic Single Piece Envista 6.0x12.5 +18.0d Hydrophobic Acrylic [id number] Model/Cat number: [id number] Serial number: [id number] Showroom Sales Assistant: [employer]coins Device identifier: [id number] Device identifier type: GS1 As of 06/14/2022 [...] provided Information Provided on Healthcare Directives: Yes Communication/Slubber Tender Needs Communication Needs: Glasses Does caregiver's language differ from patient's?: No Assistive Devices/DME: Eyeglasses Discharge Planning Type of Residence: Private residence Living Arrangements: Family members Support Systems: Family members Assistance Needed: Daughter to provide discharge transportation Patient expects to be discharged to:: Private residence DENTAL TECHNOLOGIST NO ADDITIONAL COMMENTS/ FOLLOW UP * Pre-Procedure [...] remove nail coverings, artificial nails and nail south sudanese prior to the day of surgery. You should leave your valuables and any jewelry at home. No metal or piercings are allowed in the operating room. You should bring your insurance card, a photo ID (example: Residential Fee Appraiser's License) and a method of payment for [...] Chart. If you are having surgery at [facility], please arrive on the day of [...] Remove nail coverings, artificial nails and nail south sudanese. Place clean linens on your bed the [...] questions, please call the CPAP Staff at [phone], Saturday-Saturday 8am-4:30pm. All patients should read the below section: All visitors/patients are being asked to wear a clean face mask when entering the hospital. COVID 19 Updates & Visitor Policy: Please access [email or web address] for the most updated information. Information on [facility]: Please view [email or web address] (Patient & Visitor Information) for additional details regarding Advanced Directive forms, AWARE, directions, parking information, lodging, Internet access, dining and more. Information on [facility] or [facility] ([facility]): Please view [email or web address] (Patient and Visitor Information) for parking/directions and more. For MyChart information, to activate account or password recovery, please go to [email or web address] or call [phone] (toll-free: [phone]). Information for Suicide Prevention: National Suicide Prevention Lifeline (3-780- 111-MCVS (9420)). Surgery Times: For patients having surgery @ [facility], [facility] or [facility] ([facility]), if your surgeon's office has not notified you of your surgery time by NOON THE BUSINESS DAY BEFORE your surgery, please call [phone] and ask for your surgeon's office . [...] Glucose, POC 75 70 - 199 mg/dL [facility] Blood 08/16/2022 9:14 AM CDT 08/16/2022 9:14 AM CDT Makayla Ramos MD LAB POCT ORDERABLES - DEVICE Final Result Performing Organization Address City/[facility]/ZIP Co de Phone Number [facility] [address] [facility] [place] [address] * POCT glucose (08/16/2022 8:07 AM CDT) Glucose, POC 82 70 - 199 mg/dL [facility] Blood 08/16/2022 8:07 AM CDT 08/16/2022 8:07 AM CDT Makayla Ramos MD LAB POCT ORDERABLES - DEVICE Final Result [facility] [place] [address] documented in this encounter Visit Diagnoses Diagnosis [...] 08/16/2022 documented in this encounter Care Teams Hook Up Driver Relationship Specialty Start Date End Date Elpidio Serrato MD PCP - General Internal Medicine 06/09/18 documented as of this encounter
--- OUTSIDE RECORDS SUMMARY | 2024-04-29 21:19 | XMS_ITS | Encounter Summary ---
Author Organization [facility] Address [address] [place] [address] Phone Care Team Providers Care Legislative Analyst Name Role Phone Elpidio Serrato MD Primary Care Provider [phone] Reason for Visit * Reason Comments Osteopenia * Diagnostic Imaging (Routine) - Closed Specialty Diagnoses / Procedures Referred By Contac t Referred To Contact Diagnoses Osteoporosis without current pathological fracture, unspecified osteoporosis type Procedures Dexa Axial Skeleton Bone Density 1 or 2 Site Merna Bell MD Phone: tel: fax: [facility] (All Locations) Referral ID Status Reason Start Date Expiration Date Visits Re quested Visits Authorized [id number] Closed 07/03/2022 08/02/2023 1 1 Encounter Details Date Type Department Care Team (Latest Contact Info) Description 12/03/2022 10:10 AM CDT Clinical Support [facility] [address] [place] [address] 5th [place] [address] [place] [address] Osteopenia of multiple sites (Primary Dx); Osteoporosis [...] on file Legal Sex Female 3:59 AM ETCHED CIRCUIT PROCESSOR Gender Identity Female 05/13/2021 4:21 PM ETCHED CIRCUIT PROCESSOR Sexual Orientation Not on file documented as [...] Bone mineral density was performed on a HoloWISeKey Discovery Densitometer. ?? Based on machine cross-calibration [...] by the International Society of Clinical Densitometry. [id number] us Merna Bell MD IMG DXA PROCEDURES Final Resu lt documented in this encounter Visit Diagnoses Diagnosis Osteopenia of multiple sites- Primary Osteoporosis without current pathological fracture, unspecified osteoporosis type Post-menopausal Asymptomatic postmenopausal status (age-related) (natural) documented in this encounter Care Teams Legislative Analyst Relationship Specialty Start Date End Date Elpidio Serrato MD PCP - General Internal Medicine 06/09/18 documented as of this encounter
--- OUTSIDE RECORDS SUMMARY | 2024-04-29 21:19 | XMS_ITS | Encounter Summary ---
Author Organization [facility] Address [address] [place] [address] Phone Care Team Providers Care Product Safety Test Engineer Name Role Phone Elpidio Serrato MD Primary Care Provider [phone] Reason for Visit * Reason Comments Primary open angle glaucoma (POAG) of yesy th eyes, moderate s Encounter Details Date Type Department Care Team (Late st Contact Info) Description 02/11/2023 9:45 AM CDT Office Visit [facility] [place] [address] Makayla Ramos MD [address] [place] [address] Primary open angle glaucoma (POAG) [...] on file Legal Sex Female 3:59 AM 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
--- OUTSIDE RECORDS SUMMARY | 2024-04-29 21:19 | XMS_ITS | Encounter Summary ---
Author Organization [facility] Address [address] [place] [address] Phone Care Team Providers Care Freight Dispatcher Name Role Phone Elpidio Serrato MD Primary Care Provider [phone] Encounter Details Date Type Department Care Team (Late st Contact Info) Description 04/29/2023 8:50 AM ADMISSIONS SPECIALIST Lab [facility] Endocrinology Metabolism and Lipid [address] [facility] 5th [place] [address] [place] [address] Vitamin D deficiency; Type 2 [...] on file Legal Sex Female 3:59 AM ADMISSIONS SPECIALIST Gender Identity Female 05/13/2021 4:21 PM ADMISSIONS SPECIALIST Sexual Orientation Not on file documented as of this encounter Plan of Treatment Not on file documented as of this encounter Procedures Procedure Name Priority Date/Time Associated Diagnosis Comments THYROID FUNCTION CASCADE Routine 04/29/2023 8:58 AM ADMISSIONS SPECIALIST 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, with long-term current use of insulin, unspecified laterality (HCC) CBC WITH AUTO DIFFERENTIAL Routine 04/29/2023 8:58 AM ADMISSIONS SPECIALIST 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, with long-term current use of insulin, unspecified laterality (HCC) ALBUMIN CREATININE RATIO, URINE Routine 04/29/2023 8:58 AM ADMISSIONS SPECIALIST 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, with long-term current use of insulin, unspecified laterality (HCC) VITAMIN D 25 HYDROXY Routine 04/29/2023 8:58 AM ADMISSIONS SPECIALIST Vitamin D deficiency LIPID PANEL Routine 04/29/2023 8:58 AM ADMISSIONS SPECIALIST 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, with long-term current use of insulin, unspecified laterality (HCC) COMPREHENSIVE METABOLIC PANEL Routine 04/29/2023 8:58 AM ADMISSIONS SPECIALIST 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, with long-term current use of insulin, unspecified laterality (HCC) documented in this encounter Results * (ABNORMAL) CBC with auto differential (04/29/2023 8:58 AM ADMISSIONS SPECIALIST) White Blood Count 8.9 3.6 - 11.2 [...] [facility] Blood 04/29/2023 8:58 AM ADMISSIONS SPECIALIST 04/29/2023 10:20 AM ADMISSIONS SPECIALIST us Merna Bell MD LAB BLOOD ORDERABLES Final Re sult [facility] * (ABNORMAL) Comprehensive metabolic panel (04/29/2023 8:58 AM ADMISSIONS SPECIALIST) Total Protein 6.9 6.1 - 8.4 g/dL [...] [facility] Blood 04/29/2023 8:58 AM ADMISSIONS SPECIALIST 04/29/2023 10:20 AM ADMISSIONS SPECIALIST Merna Bell MD LAB BLOOD ORDERABLES Final Re sult Performing Organization Address [facility] Co de Phone Number [facility] * TSH reflex to free T4 (04/29/2023 8:58 AM ADMISSIONS SPECIALIST) TSH (Thyrotropin) 1.65 0.27 - 4.20 uIU/mL [facility] Blood 04/29/2023 8:58 AM ADMISSIONS SPECIALIST 04/29/2023 10:20 AM ADMISSIONS SPECIALIST Merna Bell MD LAB BLOOD ORDERABLES Final Re sult [facility] * (ABNORMAL) Lipid panel (04/29/2023 8:58 AM ADMISSIONS SPECIALIST) Triglycerides 147 <150 mg/dL [facility] [...] [facility] Blood 04/29/2023 8:58 AM ADMISSIONS SPECIALIST 04/29/2023 10:20 AM ADMISSIONS SPECIALIST Narrative [facility] - 04/29/2023 1:02 PM ADMISSIONS SPECIALIST Current interpretive data was last updated April 14, 2021. For adults ages 40-79, the ACC/AHA recommends discussing your 10-year atherosclerotic cardiovascular disease risk with your health care provider. ??https://www.acc.org/ASCVDApp Merna Bell MD LAB BLOOD ORDERABLES Final Re sult [facility] * Albumin Creatinine Ratio, Urine (04/29/2023 8:58 AM ADMISSIONS SPECIALIST) Microalb, Ur 8.7 0.0 - 22.9 mg/L [facility] Comment:Repeated and Verifie d Random Urine Creatinine 103.8 mg/dL [facility] Microalb/Creat Ratio 8.4 0.0 - 29.9 mg/g [facility] Urine 04/29/2023 8:58 AM ADMISSIONS SPECIALIST 04/29/2023 10:20 AM ADMISSIONS SPECIALIST Merna eBll MD LAB URINE ORDERABLES Final Re sult [facility] * Vitamin D 25 hydroxy (04/29/2023 8:58 AM ADMISSIONS SPECIALIST) Vitamin D 74.6 20.0 - 100.0 ng/mL [facility] Comment: VITAMIN D DEFICIENCY = LESS THAN or EQUAL TO 20 ng/mL VITAMIN D INSUFFICIENCY = 21 - 29 ng/mL VITAMIN D SUFFICIENT = 30-100 ng/mL Blood 04/29/2023 8:58 AM ADMISSIONS SPECIALIST 04/29/2023 10:20 AM ADMISSIONS SPECIALIST us Merna Bell MD LAB BLOOD ORDERABLES Final Re sult [facility] documented in this encounter Visit Diagnoses Diagnosis Vitamin D deficiency 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
--- OUTSIDE RECORDS SUMMARY | 2024-04-29 21:19 | XMS_ITS | Encounter Summary ---
Author Organization [facility] Address [address] [place] [address] Phone Care Team Providers Care Skills Auditor Name Role Phone Elpidio Serrato MD Primary Care Provider [phone] Reason for Visit * Diagnostic Imaging (Routine) - Closed Specialty Diagnoses / Procedures Referred By Constantino alvarado Referred To Contact Diagnoses Primary open angle glaucoma (POAG) of both eyes, moderate stage Procedures Forrest Visual Field - OU - Both Eyes Makayla Ramos MD [address] [place] [address] Phone: tel: fax: [facility] (All Locations) Referral ID Status Reason Start Date Expiration Date Visits Re quested Visits Authorized [id number] Closed 05/16/2022 06/15/2023 1 1 Encounter Details Date Type Department Care Team (Late st Contact Info) Description 02/11/2023 9:00 AM CDT Imaging Exam [facility] Ophthalmology [address] [facility] 6th [place] [address] Primary open angle glaucoma (POAG) of both [...] on file Legal Sex Female 3:59 AM MANAGER SOUND Gender Identity Female 05/13/2021 4:21 PM MANAGER SOUND Sexual Orientation Not on file documented as [...] stage documented in this encounter Care Teams Skills Auditor Relationship Specialty Start Date End Date Elpidio Serrato MD PCP - General Internal Medicine 06/09/18 documented as of this encounter
--- OUTSIDE RECORDS SUMMARY | 2024-04-29 21:19 | XMS_ITS | Encounter Summary ---
Author Organization [facility] Address [address] [place] [address] Phone Care Team Providers Care Installation Drafter Name Role Phone Elpidio Serrato MD Primary Care Provider [phone] Reason for Visit * Reason Comments Post-op Follow-up Encounter Details Date Type Department Care Team (Late st Contact Info) Description 08/24/2022 10:15 AM CDT Office Visit [facility] Ophthalmology [facility] [place] [address] Makayla Ramos MD [address] [place] [address] Primary open angle glaucoma (POAG) [...] file Legal Sex Female 3:59 AM CORPORATE PLANNER Gender Identity Female 05/13/2021 4:21 PM CORPORATE PLANNER Sexual Orientation Not on file documented as [...] [place] ctive Lens PCIOL PCIOL Care Teams Installation Drafter Relationship Specialty Start Date End Date Elpidio Serrato MD PCP - General Internal Medicine 06/09/18 documented as of this encounter
--- OUTSIDE RECORDS SUMMARY | 2024-04-29 21:19 | XMS_ITS | Encounter Summary ---
Author Organization [facility] Address [address] [place] [address] Phone Care Team Providers Care Private Investigator Name Role Phone Elpidio Serrato MD Primary Care Provider [phone] Reason for Referral * Diagnostic Imaging (Routine) - Closed Specialty Diagnoses / Procedures Referred By Constantino alvarado Referred To Contact Diagnoses Primary open angle glaucoma (POAG) of both eyes, moderate stage Procedures OCT, Optic Nerve - OU - Both Eyes Makayla Ramos MD [address] [place] [address] Phone: tel: fax: [facility] (All Locations) Referral ID Status Reason Start Date Expiration Date Visits Re quested Visits Authorized [id number] Closed 10/18/2022 11/17/2023 1 1 Encounter Details Date Type Department Care Team (Late st Contact Info) Description 10/18/2022 Orders Only [facility] Ophthalmology [facility] [place] [address] Makayla Ramos MD [address] [place] [place] [address] Primary open angle glaucoma (POAG) [...] on file Legal Sex Female 3:59 AM 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
--- OUTSIDE RECORDS SUMMARY | 2024-04-29 21:19 | XMS_ITS | Encounter Summary ---
Author Organization [facility] Address [address] [place] [address] Phone Care Team Providers Care Professional Fighter Name Role Phone Elpidio Serrato MD Primary Care Provider [phone] Encounter Details Date Type Department Care Team (Late st Contact Info) Description 08/20/2023 Orders Only [facility] Endocrinology Metabolism and Lipid [address] [facility] 13th [place] [address] [place] [address] Princess Hu RMA Social History [...] on file Legal Sex Female 3:59 AM FORESTRY ADVISER Gender Identity Female 05/13/2021 4:21 PM FORESTRY ADVISER Sexual Orientation Not on file documented [...] on filedocumented in this encounter Care Teams Professional Fighter Relationship Specialty Start Date End Date Elpidio Serrato MD PCP - General Internal Medicine 06/09/18 documented as of this encounter
--- OUTSIDE RECORDS SUMMARY | 2024-04-29 21:19 | XMS_ITS | Encounter Summary ---
Author Organization [facility] Address [address] [place] [address] Phone Care Team Providers Care Electric Dolly Operator Name Role Phone Elpidio Serrato MD Primary Care Provider [phone] Reason for Visit * Diagnostic Imaging (Routine) - Closed Specialty Diagnoses / Procedures Referred By Constantino alvarado Referred To Contact Diagnoses Primary open angle glaucoma (POAG) of both eyes, moderate stage Procedures OCT, Optic Nerve - OU - Both Eyes Makayla Ramos MD [address] [place] [address] Phone: tel: fax: [facility] (All Locations) Referral ID Status Reason Start Date Expiration Date Visits Re quested Visits Authorized [id number] Closed 10/18/2022 11/17/2023 1 1 Encounter Details Date Type Department Care Team (Late st Contact Info) Description 02/11/2023 9:20 AM CDT Imaging Exam [facility] Ophthalmology [address] [facility] 6th [place] [address] Primary open angle glaucoma (POAG) of both [...] on file Legal Sex Female 3:59 AM TRUCKLOAD 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
--- OUTSIDE RECORDS SUMMARY | 2024-04-29 21:19 | XMS_ITS | Encounter Summary ---
Author Organization [facility] Address [address] [place] [address] Phone Care Team Providers Care Glass Production Machine Operator Name Role Phone Elpidio Serrato MD Primary Care Provider [phone] Reason for Visit * Reason Comments Post-op Follow-up Encounter Details Date Type Department Care Team (Late st Contact Info) Description 10/05/2022 7:45 AM CDT Office Visit [facility] Ophthalmology [facility] [place] [address] Makayla Ramos MD [address] [place] [address] Primary open angle glaucoma (POAG) [...] on file Legal Sex Female 3:59 AM COMMUNITY OUTREACH WORKER Gender Identity Female 05/13/2021 4:21 PM COMMUNITY OUTREACH WORKER Sexual Orientation Not on file documented [...] today, prefers to use readers. Care Teams Glass Production Machine Operator Relationship Specialty Start Date End Date Elpidio Serrato MD PCP - General Internal Medicine 06/09/18 documented as of this encounter
--- OUTSIDE RECORDS SUMMARY | 2024-04-29 21:19 | XMS_ITS | Encounter Summary ---
Author Organization [facility] Address [address] [place] [address] Phone Care Team Providers Care Director Of Corporate Strategy Name Role Phone Elpidio Serrato MD Primary Care Provider [phone] Encounter Details Date Type Department Care Team (Latest Contact Info) Description 04/29/2023 8:20 AM PLANTING MACHINE CREWMAN Office Visit [facility] Endocrinology Metabolism and Lipid [address] [facility] 13th [place] [address] [place] [address] Merna Bell MD [address] [facility] [address] [place] [address] Type 2 diabetes mellitus with moderate nonproliferative [...] on file Legal Sex Female 3:59 AM PLANTING MACHINE CREWMAN Gender Identity Female 05/13/2021 4:21 PM PLANTING MACHINE CREWMAN Sexual Orientation Not on file documented as of this encounter Last Filed Vital Signs Vital Sign Reading Time Taken Comments Blood Pressure 118/56 04/29/2023 8:05 AM PLANTING MACHINE CREWMAN Pulse 78 04/29/2023 8:05 AM PLANTING MACHINE CREWMAN Temperature 36.7 ??C (98.1 ??F) 04/29/2023 8:05 AM CS T Respiratory Rate - - Oxygen Saturation - - Inhaled Oxygen Concentration - - Weight 93.6 kg (206 lb 6.4 oz) 04/29/2023 8:05 A M PLANTING MACHINE CREWMAN Height 151.9 cm (4' 11.8 ) 04/29/2023 8:05 AM CS T Body Mass Index 40.58 04/29/2023 8:05 AM PLANTING MACHINE CREWMAN documented in this encounter Patient Instructions * Patient Instructions* Merna Bell MD - 04/29/2023 8:20 AM PLANTING MACHINE CREWMAN Schedule Reclast infusion TING MACHINE CREWMAN documented in this encounter Progress Notes * [...] CATARACT EXTRACTION Right 06/14/2022 CE/IOL + goniotomy CT APPENDECTOMY unkown dates per pt CT DELIVERY ONLY Section - in 1972 and 1975 (Added by TW Conv) CT TENDON SHEATH INCISION Hand Incision Tendon Sheath [...] Assessment & Plan Type 2 diabetes mellitus ([facility]) Glucoses are excellent , A1c 5.8%, which [...] POCT hemoglobin A1c -- Merna Bell MD helper steel fabrication Endocrinology, Metabolism, & Lipid Research TING MACHINE CREWMAN documented in this encounter Plan of Treatment Not on file documented as of this encounter Procedures Procedure Name Priority Date/Time Associated Diagnosis Comments POCT HEMOGLOBIN A1C Routine 04/29/2023 8:15 AM PLANTING MACHINE CREWMAN 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, with long-term current use of insulin, unspecified laterality (HCC) POCT GLUCOSE 48495 Routine 04/29/2023 8: 12 AM PLANTING MACHINE CREWMAN 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, with long-term current use of insulin, unspecified laterality (HCC) documented in this encounter Results * Vitamin D 25 hydroxy (04/29/2023 8:58 AM PLANTING MACHINE CREWMAN) Vitamin D 74.6 20.0 - 100.0 ng/mL [facility] Comment: VITAMIN D DEFICIENCY = LESS THAN or EQUAL TO 20 ng/mL VITAMIN D INSUFFICIENCY = 21 - 29 ng/mL VITAMIN D SUFFICIENT = 30-100 ng/mL Blood 04/29/2023 8:58 AM PLANTING MACHINE CREWMAN 04/29/2023 10:20 AM PLANTING MACHINE CREWMAN us Merna Bell MD LAB BLOOD ORDERABLES Final Re sult [facility] * Albumin Creatinine Ratio, Urine (04/29/2023 8:58 AM PLANTING MACHINE CREWMAN) Microalb, Ur 8.7 0.0 - 22.9 mg/L [facility] Comment:Repeated and Verifie d Random Urine Creatinine 103.8 mg/dL [facility] Microalb/Creat Ratio 8.4 0.0 - 29.9 mg/g [facility] Urine 04/29/2023 8:58 AM PLANTING MACHINE CREWMAN 04/29/2023 10:20 AM PLANTING MACHINE CREWMAN Merna Bell MD LAB URINE ORDERABLES Final Re sult Performing Organization Address [facility] Co de Phone Number [facility] * (ABNORMAL) Lipid panel (04/29/2023 8:58 AM PLANTING MACHINE CREWMAN) Triglycerides 147 <150 mg/dL [facility] [...] [facility] Blood 04/29/2023 8:58 AM PLANTING MACHINE CREWMAN 04/29/2023 10:20 AM PLANTING MACHINE CREWMAN Narrative [facility] - 04/29/2023 1:02 PM PLANTING MACHINE CREWMAN Current interpretive data was last updated April 14, 2021. For adults ages 40-79, the ACC/AHA recommends discussing your 10-year atherosclerotic cardiovascular disease risk with your health care provider. ??https://www.acc.org/ASCVDApp Merna Bell MD LAB BLOOD ORDERABLES Final Re sult Performing Organization Address [facility] Co de Phone Number [facility] * TSH reflex to free T4 (04/29/2023 8:58 AM PLANTING MACHINE CREWMAN) TSH (Thyrotropin) 1.65 0.27 - 4.20 uIU/mL [facility] Blood 04/29/2023 8:58 AM PLANTING MACHINE CREWMAN 04/29/2023 10:20 AM PLANTING MACHINE CREWMAN Merna Bell MD LAB BLOOD ORDERABLES Final Re sult Performing Organization Address [facility] Co de Phone Number [facility] * (ABNORMAL) Comprehensive metabolic panel (04/29/2023 8:58 AM PLANTING MACHINE CREWMAN) Total Protein 6.9 6.1 - 8.4 g/dL [...] [facility] Blood 04/29/2023 8:58 AM PLANTING MACHINE CREWMAN 04/29/2023 10:20 AM PLANTING MACHINE CREWMAN us Merna Bell MD LAB BLOOD ORDERABLES Final Re sult [facility] * (ABNORMAL) CBC with auto differential (04/29/2023 8:58 AM PLANTING MACHINE CREWMAN) White Blood Count 8.9 3.6 - 11.2 [...] [facility] Blood 04/29/2023 8:58 AM PLANTING MACHINE CREWMAN 04/29/2023 10:20 AM PLANTING MACHINE CREWMAN us Merna Bell MD LAB BLOOD ORDERABLES Final Re sult [facility] * POCT hemoglobin A1c (04/29/2023 8:15 AM PLANTING MACHINE CREWMAN) Hemoglobin A1C, POC 5.8 % Blood 04/29/2023 8:15 AM PLANTING MACHINE CREWMAN Merna Bell MD POINT OF CARE TEST ORDERABLES Final Result * POCT glucose (04/29/2023 8:12 AM PLANTING MACHINE CREWMAN) Glucose Blood, POC 176 mg/dL Blood 04/29/2023 8:12 AM PLANTING MACHINE CREWMAN Merna Bell MD POINT OF CARE TEST [...] (HCC) documented in this encounter Care Teams Director Of Corporate Strategy Relationship Specialty Start Date End Date Elpidio Serrato MD PCP - General Internal Medicine 06/09/18 documented as of this encounter
--- OUTSIDE RECORDS SUMMARY | 2024-04-29 21:19 | XMS_ITS | Encounter Summary ---
Author Organization [facility] Address [address] [place] [address] Phone Care Team Providers Care Director Integrated Name Role Phone Elpidio Serrato MD Primary Care Provider [phone] Reason for Referral * Diagnostic Imaging (Routine) - Pending Review Specialty Diagnoses / Procedures Referred By Contac t Referred To Contact Diagnoses Primary open angle glaucoma (POAG) of both eyes, moderate stage Procedures Forrest Visual Field - OU - Both Eyes Makayla Ramos MD [address] [place] [address] Phone: tel: fax: [facility] (All Locations) Referral ID Status Reason Start Date Expiration Date V isits Requested Visits Authorized [id number] Pending Review 07/31/2023 08/29/2024 1 1 * Diagnostic Imaging (Routine) - Pending Review Specialty Diagnoses / Procedures Referred By Contac t Referred To Contact Diagnoses Primary open angle glaucoma (POAG) of both eyes, moderate stage Procedures OCT, Optic Nerve - OU - Both Eyes Makayla Ramos MD [address] [place] [address] Phone: tel: fax: [facility] (All Locations) Referral ID Status Reason Start Date Expiration Date V isits Requested Visits Authorized [id number] Pending Review 07/31/2023 08/29/2024 1 1 Encounter Details Date Type Department Care Team (Late st Contact Info) Description 07/31/2023 Orders Only [facility] Ophthalmology [address] [facility] [place] [address] Makayla Ramos MD [address] [place] [address] Primary open angle glaucoma (POAG) of both [...] on file Legal Sex Female 3:59 AM RECHECKER Gender Identity Female 05/13/2021 4:21 PM RECHECKER Sexual Orientation Not on file documented as [...] Primary documented in this encounter Care Teams Director Integrated Relationship Specialty Start Date End Date Elpidio Serrato MD PCP - General Internal Medicine 06/09/18 documented as of this encounter
--- OUTSIDE RECORDS SUMMARY | 2024-04-29 21:19 | XMS_ITS | Encounter Summary ---
Author Organization [facility] Address [address] [place] [address] Phone Care Team Providers Care Barrel Drum Cutter Name Role Phone Elpidio Serrato MD Primary Care Provider [phone] Reason for Visit * Reason Comments Post-op Follow-up Encounter Details Date Type Department Care Team (Late st Contact Info) Description 08/17/2022 8:15 AM CDT Office Visit [facility] Ophthalmology [facility] [place] [address] Makayla Ramos MD [address] [place] [address] Primary open angle glaucoma (POAG) [...] newton ctive Lens PCIOL PCIOL Care Teams Barrel Drum Cutter Relationship Specialty Start Date End Date Elpidio Serrato MD PCP - General Internal Medicine 06/09/18 documented as of this encounter
--- OUTSIDE RECORDS SUMMARY | 2024-04-29 21:19 | XMS_ITS | Encounter Summary ---
Author Organization [facility] Address [address] [place] [address] Phone Care Team Providers Care Logistics Team Leader Name Role Phone Elpidio Serrato MD Primary Care Provider [phone] Encounter Details Date Type Department Care Team (Latest Contact Info) Description 12/03/2022 11:20 AM CDT Office Visit [facility] Endocrinology Metabolism and Lipid [address] [facility] 13th [place] [address] [place] [address] Merna Bell MD [address] [facility] [address] [place] [address] Type 2 diabetes mellitus with moderate nonproliferative [...] on file Legal Sex Female 3:59 AM TIRE ADJUSTER Gender Identity Female 05/13/2021 4:21 PM TIRE ADJUSTER Sexual Orientation Not on file documented as [...] pregnancies, 2 children - C-sections. (Added by [employer] [facility]) Nonproliferative diabetic retinopathy (HCC) 11/03/2009 Personal history of other specified conditions History of chest pain - Stress test negative on 08/01/06 (Added by [employer] [facility]) Past Surgical History: Procedure Laterality Date CATARACT EXTRACTION Right 06/14/2022 CE/IOL + goniotomy [place] APPENDECTOM[place] unkown dates per pt [place] DELIVERY ONLY Section - in 1972 and 1975 (Added by [employer] [facility] [facility]) [place] TENDON SHEATH INCISION Hand Incision Tendon Sheath Of A Finger - right hand, III finger, 08/20 (Added by [employer]) Social & Family History Social History Tobacco [...] Other Thyroid Disorder - mother (Added by [employer] [facility] [facility]) Diabetes type II Other Type II Diabetes Mellitus - mother (Added by [employer] [facility]) Anesthesia problems Neg Hx Review of [...] Assessment & Plan Type 2 diabetes mellitus (CMS/[facility]) Glucoses are excellent , A1c 6.0%, which [...] 40 mg tablet -- Merna Bell MD oncology social worker Endocrinology, Metabolism, & Lipid Research documented in this encounter Plan of Treatment Not on file documented as of this encounter Procedures Procedure Name Priority Date/Time Associated Diagnosis Comments POCT HEMOGLOBIN A1C Routine 12/03/2022 10:12 AM CDT 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
--- OUTSIDE RECORDS SUMMARY | 2024-04-29 21:20 | XMS_ITS | Encounter Summary ---
Author Organization [facility] Address [address] [place] [address] Phone Care Team Providers Care Capacity Planning Engineer Name Role Phone Elpidio Serrato MD Primary Care Provider Reason for Visit * Reason Onset Date Comments 08/16/2022 Surgery 08/08/2022 Encounter Details Date Type Department Care Team (Late st Contact Info) Description 08/08/2022 Telephone [facility] Ophthalmology [address] [facility] [facility] 2nd Floor, [address] [place] [address] Geovanna Doe COA 08/16/2022 Surgery [...] on file Legal Sex Female 3:59 AM SOFT SUGAR SUPERVISOR Gender Identity Female 05/13/2021 4:21 PM SOFT SUGAR SUPERVISOR Sexual Orientation Not on file documented as of this encounter Miscellaneous Notes * Telephone Encounter - Geovanna Doe COA - 08/15/2022 9:15 AM CDT Spoke to patient and gave all surgery details for surgery scheduled on 08/16/[address] Ramos Arrival time: 7:00am Surgery is at [facility] on the 4th floor. Remember; nothing to eat or drink after midnight the night before and make sure they have a delivery driver to drive them home (family member or friend). For the patient's safety, Uber/Taxis are not acceptable transportation after discharge. Address: [facility], 4th floor surgery center. [address] [place] [address] * Telephone Encounter - Geovanna Doe COA - 08/08/2022 3:21 PM CDT Phoned patient to schedule surgery: Discussed surgery date: 08/16/2022 Location: CAM [x] [facility] [] Plan from notes: CEIOL/goniotomy OS 45 [...] on filedocumented in this encounter Care Teams Capacity Planning Engineer Relationship Specialty Start Date End Date Elpidio Serrato MD PCP - General Internal Medicine 06/09/18 documented as of this encounter
--- OUTSIDE RECORDS SUMMARY | 2024-04-29 21:20 | XMS_ITS | Encounter Summary ---
Author Organization [facility] Address [address] [place] [address] Phone Care Team Providers Care Mercury Washer Name Role Phone Elpidio Serrato MD Primary Care Provider [phone] Encounter Details Date Type Department Care Team (Late st Contact Info) Description 06/22/2022 7:45 AM RESULTS TECHNICIAN Office Visit [facility] Ophthalmology [address] [facility] [place] [address] Makayla Ramos MD [address] [place] [address] Primary open angle glaucoma (POAG) [...] on file Legal Sex Female 3:59 AM RESULTS TECHNICIAN Gender Identity Female 05/13/2021 4:21 PM RESULTS TECHNICIAN Sexual Orientation Not on file documented [...] agree with the findings/plan of the Resident/Fellow LTS TECHNICIAN * Mile Neal COA - 06/22/2022 7:45 AM CST 06/25/2022 - LVM for patient to call me back to schedule surgery. LTS TECHNICIAN documented in this encounter Miscellaneous Notes * Addendum Note - Mile Neal COA - 06/22/2022 7:45 AM CSTAddended by: MILE NEAL on: 06/27/2022 11:13 AM Modules accepted: Orders LTS TECHNICIAN * Assessment & Plan Note - Makayla Ramos MD - 06/22/2022 7:41 AM RESULTS TECHNICIAN Associated Problem(s): Pseudophakia of both eyes [...] perioperative steroids: no Book Phaco/IOL/goniotomy left eye. LTS TECHNICIAN * Assessment & Plan Note - Makayla Ramos MD - 06/22/2022 7:41 AM RESULTS TECHNICIAN Associated Problem(s): Primary open angle glaucoma [...] is to call. Follow for surgery OS LTS TECHNICIAN documented in this encounter Plan of Treatment Not on file documented as of this encounter Procedures Procedure Name Priority Date/Time Associated Diagnosis Comments IOL CALCULATION 2ND EYE 69919 - OS - LEFT EYE Routine 06/22/2022 7:45 AM RESULTS TECHNICIAN Nuclear sclerotic cataract of both eyes documented in this encounter Results * IOL Calculation 2nd Eye 63266 - OS - Left Eye (06/22/2022 7:45 AM RESULTS TECHNICIAN) Anatomical Region Laterality Modality Head Ophthalmic [...] Round and reactive Lens PCIOL Care Teams Mercury Washer Relationship Specialty Start Date End Date Elpidio Serrato MD PCP - General Internal Medicine 06/09/18 documented as of this encounter
--- OUTSIDE RECORDS SUMMARY | 2024-04-29 21:20 | XMS_ITS | Encounter Summary ---
Author Organization [facility] Healthcare Address [address] [place] [address] Care Team Providers Care Cell Stripper Name Role Phone Elpidio Serrato MD Primary Care Provider [phone] Reason for Visit * Auth/Cert Specialty Diagnoses / Procedures Referred By Contac t Referred To Contact Diagnoses Primary open angle glaucoma (POAG) of both eyes, moderate stage Nuclear sclerotic cataract of left eye Primary open angle glaucoma (POAG) of both eyes, moderate stage [H40.1132] Nuclear sclerotic cataract of left eye [H25.12] Procedures AL XCAPSL CTRC RMVL INSJ IO LENS PROSTH W/O ECP AL GONIOTOMY AL XCAPSL CTRC RMVL INSJ IO LENS PROSTH CPLX WO ECP EXTRACTION CATARACT - PHACOEMULSIFICATION AND LENS IMPLANT GONIOTOMY Referral ID Status Reason Start Date Expiration Date Visits Re quested Visits Authorized [id number] 1 1 Encounter Details Date Type Department Care Team (Late st Contact Info) Description 08/16/2022 8:36 AM CDT Anesthesia Event [facility] Operating Room [facility] [address] [place] [address] Francisco Balderas MD [address] [place] [address] Marisol Mars NP [address] [facility] [place] [address] Anesthesia Record Procedure Summary Procedure Name Responsible [...] on file Legal Sex Female 3:59 AM ADVANCED CLINICAL SPECIALIST Gender Identity Female 05/13/2021 4:21 PM ADVANCED CLINICAL SPECIALIST Sexual Orientation Not on file documented as of this encounter OR Notes * Anesthesia Postprocedure Evaluation - Wally Man MD - 08/16/2022 9:36 AM CDT Patient: Isabelle Lutz Procedure Summary Date: 08/16/22 Room / Location: [facility] CAM OR POD 4 ROOM P / [facility] CAM OR POD 4 Anesthesia Start: 835 [...] Preoperative Evaluation Record Evaluation type/location: TPAP from [facility] Planned procedure site: [facility] CAM OR (Pod 4) Date: [...] Cardiovascular Pertinent negatives: hypertension ; CAD ; ID ; CABG ; valvular heart disease; atrial [...] provided by telephone and electronically sent via [employer]. Patient verbalized understanding of preoperative plan. Blood bank needs for day of procedure: No type and screen needed Pending labs/tests include: POC Glucose The patient is on aspirin therapy for primary prevention. The bleeding risk for the planned procedure is insignificant and therefore aspirin can be continued throughout the periprocedural period. Please call the CPAP chart room clinician ([phone]) with any questions. TPAP complete Preoperative evaluation [...] EXTRACTION Right 06/14/2022 CE/IOL + goniotomy ??? [place] APPENDECTOMY unkown dates per pt ??? [place] DELIVERY ONLY Section - in 1972 and 1975 (Added by TW Conv) ??? [place] TENDON SHEATH INCISION Hand Incision Tendon Sheath [...] % ophthalmic solution 08/02/2022 11/02/21 -- Makayla Rmaos MD INSTILL 1 DROP INTO BOTH EYES [...] taking differently: Take 88 mcg by mouth house worker before breakfast metFORMIN (GLUCOPHAGE) 500 mg tablet [...] Medication protocol when under care of a DIRECTOR HUMAN SERVICES Planned anesthesia: MAC Induction: Induction: intravenous. Postoperative [...] mg documented in this encounter Care Teams Cell Stripper Relationship Specialty Start Date End Date Elpidio Serrato MD PCP - General Internal Medicine 06/09/18 documented as of this encounter
--- OUTSIDE RECORDS SUMMARY | 2024-04-29 21:20 | XMS_ITS | Encounter Summary ---
Author Organization [facility] Address [address] [place] [address] Phone Care Team Providers Care Master Brewer Name Role Phone Elpidio Serrato MD Primary Care Provider [phone] Reason for Referral * Diagnostic Imaging (Routine) - Closed Specialty Diagnoses / Procedures Referred By Contac t Referred To Contact Diagnoses Osteoporosis without current pathological fracture, unspecified osteoporosis type Procedures Dexa Axial Skeleton Bone Density 1 or 2 Site Merna Bell MD Phone: tel: fax: [facility] (All Locations) Referral ID Status Reason Start Date Expiration Date Visits Re quested Visits Authorized [id number] Closed 07/03/2022 08/02/2023 1 1 INTEGRATION Encounter Details Date Type Department Care Team (Latest Contact Info) Description 07/03/2022 2:50 PM VP INTEGRATION Office Visit [facility] Endocrinology Metabolism and Lipid [address] [facility] 13th [place] [address] [place] [address] Merna Bell MD [address] [facility] [address] [place] [address] Type 2 diabetes mellitus with moderate nonproliferative [...] file Legal Sex Female 3:59 AM VP INTEGRATION Gender Identity Female 05/13/2021 4:21 PM VP INTEGRATION Sexual Orientation Not on file documented as of this encounter Last Filed Vital Signs Vital Sign Reading Time Taken Comments Blood Pressure 121/69 07/03/2022 2:12 PM VP INTEGRATION Pulse 69 07/03/2022 2:12 PM VP INTEGRATION Temperature 36.7 ??C (98 ??F) 07/03/2022 2:12 PM VP INTEGRATION Respiratory Rate - - Oxygen Saturation - - Inhaled Oxygen Concentration - - Weight 91.4 kg (201 lb 9.6 oz) 07/03/2022 2:12 P M VP INTEGRATION Height 152.4 cm (5') 07/03/2022 2:12 PM VP INTEGRATION Body Mass Index 39.37 07/03/2022 2:12 PM VP INTEGRATION documented in this encounter Progress Notes * [...] CATARACT EXTRACTION Right 06/14/2022 CE/IOL + goniotomy [place] APPENDECTOMY unkown dates per pt [place] DELIVERY ONLY Section - in 1972 and 1975 (Added by TW Conv) [place] TENDON SHEATH INCISION Hand Incision Tendon Sheath [...] labs, imaging, and diagnostics independently reviewed in [facility] and commented on below. Allergies: Pseudoephedrine and [...] Assessment & Plan Type 2 diabetes mellitus ([facility]) Glucoses are excellent , A1c 5.4% - [...] Merna Bell MD at 07/04/2022 5:02 PM VP INTEGRATION INTEGRATION INTEGRATION Associated attestation - Merna Bell MD - 07/04/2022 5:02 PM VP INTEGRATION I have seen and examined the patient. [...] Priority Date/Time Associated Diagnosis Comments POCT GLUCOSE 13312 Routine 07/03/2022 2:13 PM VP INTEGRATION Type 2 diabetes mellitus with moderate nonproliferative [...] Bone mineral density was performed on a [employer] Discovery Densitometer. ?? Based on machine cross-calibration [...] by the International Society of Clinical Densitometry. [id number] us Merna Bell MD IMG DXA PROCEDURES Final Resu lt * (ABNORMAL) POCT glucose (07/03/2022 2:13 PM VP INTEGRATION) Glucose Blood, POC 87 mg/dL Blood 07/03/2022 2:13 PM VP INTEGRATION Merna Bell MD POINT OF CARE TEST [...] (natural) documented in this encounter Care Teams Master Brewer Relationship Specialty Start Date End Date Elpidio Serrato MD PCP - General Internal Medicine 06/09/18 documented as of this encounter
--- OUTSIDE RECORDS SUMMARY | 2024-04-29 21:20 | XMS_ITS | Encounter Summary ---
Author Organization [facility] Healthcare Address [address] [place] [address] Care Team Providers Care Bag Loader Machine Operator Name Role Phone Elpidio Serrato MD Primary Care Provider [phone] Reason for Visit * Auth/Cert Specialty Diagnoses / Procedures Referred By Contac t Referred To Contact Diagnoses Nuclear sclerotic cataract of both eyes Primary open angle glaucoma of both eyes, moderate stage Nuclear sclerotic cataract of both eyes [H25.13] Primary open angle glaucoma of both eyes, moderate stage [H40.1132] Procedures [place] XCAPSL CTRC RMVL INSJ IO LENS PROSTH W/O ECP IA GONIOTOMY EXTRACTION CATARACT - PHACOEMULSIFICATION AND LENS IMPLANT - right eye GONIOTOMY - right eye Referral ID Status Reason Start Date Expiration Date Visits Re quested Visits Authorized [id number] 1 1 Encounter Details Date Type Department Care Team (Late st Contact Info) Description 06/14/2022 9:17 AM CHISEL WORKER Anesthesia Event [facility] Operating Room [facility]) [address] [place] [address] Fabi Andrade MD [address] [place] [address] Malika So NP [address] [facility] [id number] [place] [address] Anesthesia Record Procedure Summary Procedure Name Responsible [...] on file Legal Sex Female 3:59 AM CHISEL WORKER Gender Identity Female 05/13/2021 4:21 PM CHISEL WORKER Sexual Orientation Not on file documented as of this encounter OR Notes * Anesthesia Postprocedure Evaluation - Wally Man MD - 06/14/2022 10:43 AM CST Patient: Isabelle Lutz Procedure Summary Date: 06/14/22 Room / Location: [facility] CAM OR POD 4 ROOM P / [facility] CAM OR POD 4 Anesthesia Start: 916 [...] Nausea/Vomiting status: none No notable events documented. EL WORKER * Anesthesia Preprocedure Evaluation - Fabi Andrade MD - 05/31/2022 8:25 AM CST Images from the original note were not included. Center for Preoperative Assessment and Planning Preoperative Evaluation Record Evaluation type/location: TPAP from [facility] Planned procedure site: [facility] CAM OR (Pod 4) Date: 05/31/22 NOTE: [...] Cardiovascular Pertinent negatives: hypertension ; CAD ; [place] ; CABG ; valvular heart disease; atrial [...] provided by telephone and electronically sent via [employer]. Patient verbalized understanding of preoperative plan. Blood bank needs for day of procedure: No type and screen needed Pending labs/tests include: POC Glucose The patient is on aspirin therapy for primary prevention. The bleeding risk for the planned procedure is insignificant and therefore aspirin can be continued throughout the periprocedural period. Please call the CPAP chart room clinician ([phone]) with any questions. TPAP complete Preoperative evaluation [...] albuminuria creatinine ratio less than 30 mg/g ([facility]) Past Medical History: Diagnosis Date ??? Cataract ??? Diabetes mellitus ([facility]) ??? Diabetic retinopathy (CMS/HCC) ([facility]) ??? Glaucoma ??? Multiparity History Of ___ Previous Pregnancies - 7 pregnancies, 2 children - C-sections. (Added by TW Conv) ??? Nonproliferative diabetic retinopathy (CMS/HCC) ([facility]) 11/03/2009 ??? Personal history of other specified conditions History of chest pain - Stress test negative on 08/01/06 (Added by TW Conv) Past Surgical History: Procedure Laterality Date ??? [place] APPENDECTOMY unkown dates per pt ??? [place] DELIVERY ONLY Section - in 1972 and 1975 (Added by TW Conv) ??? [place] TENDON SHEATH INCISION Hand Incision Tendon [...] taking differently: Take 88 mcg by mouth dining room hostess before breakfast metFORMIN (GLUCOPHAGE) 500 mg tablet [...] Medication protocol when under care of a SENIOR TRAINING AND DEVELOPMENT REP Planned anesthesia: MAC Induction: Induction: intravenous. Postoperative Plan: Patient's planned disposition post procedure is Outpatient. Informed Consent: Discussed plan with SENIOR TRAINING AND DEVELOPMENT REP. Anesthesia plan and risks discussed with patient. Consent and Attending signature: I and/or my designee have discussed the anesthesia plan, benefits, possible alternatives, parental presence at time of induction (if indicated), and clinically relevant risks that may include dental injury, unintentional awareness, and/or other complications. The patient and/or parent/legal guardian understand, and agree to proceed. All questions answered. EL WORKER EL WORKER documented in this encounter Plan of Treatment [...] 0919, Anesthesia Intra-op Given 06/14/2022 9:31 AM CHISEL WORKER 25 mcg Given 06/14/2022 9:28 AM CHISEL WORKER 25 mcg Given 06/14/2022 9:25 AM CHISEL WORKER 25 mcg Lactated Ringer's (LR) infusion 30 mL/hr, intravenous, Continuous, Starting on Dilma 06/14/22 at 0900, Pre-Op Rate/Dose Verify 06/14/2022 9:17 AM CHISEL WORKER 30 mL/hr New Bag 06/14/2022 8:48 AM CHISEL WORKER 30 mL/hr 30 mL/hr midazolam (VERSED) 1 mg/mL preservative free injection intravenous, Administer over 2 Minutes, As needed, Starting on Dilma 06/14/22 at 0917, Anesthesia Intra-op Given 06/14/2022 9:24 AM CHISEL WORKER 0.5 mg Given 06/14/2022 9:17 AM CHISEL WORKER 0.5 mg documented in this encounter Care Teams Bag Loader Machine Operator Relationship Specialty Start Date End Date Elpidio Serrato MD PCP - General Internal Medicine 06/09/18 documented as of this encounter
--- OUTSIDE RECORDS SUMMARY | 2024-04-29 21:20 | XMS_ITS | Encounter Summary ---
Author Organization [facility] Healthcare Address [address] [place] [address] Care Team Providers Care Hole Digger Name Role Phone Elpidio Serrato MD Primary Care Provider [phone] Reason for Visit * Auth/Cert Specialty Diagnoses / Procedures Referred By Contac t Referred To Contact Diagnoses Nuclear sclerotic cataract of both eyes Primary open angle glaucoma of both eyes, moderate stage Nuclear sclerotic cataract of both eyes [H25.13] Primary open angle glaucoma of both eyes, moderate stage [H40.1132] Procedures AR XCAPSL CTRC RMVL INSJ IO LENS PROSTH W/O ECP AR GONIOTOMY EXTRACTION CATARACT - PHACOEMULSIFICATION AND LENS IMPLANT - right eye GONIOTOMY - right eye Referral ID Status Reason Start Date Expiration Date Visits Re quested Visits Authorized [id number] 1 1 Encounter Details Date Type Department Care Team (Latest Contact Info) Description 06/14/2022 9:15 AM OPAL POLISHER - 06/14/2022 9:50 AM OPAL POLISHER Surgery [facility] [place] [address] Makayla Ramos MD [facility] [place] [address] EXTRACTION CATARACT - PHACOEMULSIFICATION AND LENS IMPLANT - right eye Surgery Details Date/Time Status Location OR Service Patient Class Case Cl ass Case Type Trauma Case? 06/14/2022 9:15 AM Posted [facility] OR POD 4 P Ophthalmology Outpatient [...] on file Legal Sex Female 3:59 AM OPAL POLISHER Gender Identity Female 05/13/2021 4:21 PM OPAL POLISHER Sexual Orientation Not on file documented as of this encounter Last Filed Vital Signs Vital Sign Reading Time Taken Comments Blood Pressure 101/38 06/14/2022 9:50 AM OPAL POLISHER RN to retake, inaccurate Pulse 79 06/14/2022 9:50 AM OPAL POLISHER Temperature 36 ??C (96.8 ??F) 06/14/2022 9:4 0 AM OPAL POLISHER Respiratory Rate 16 06/14/2022 9:50 AM OPAL POLISHER Oxygen Saturation 97% 06/14/2022 9:5 0 AM OPAL POLISHER Inhaled Oxygen Concentration - - Weight 99.8 kg (220 lb) 05/30/2022 1:55 PM OPAL POLISHER Height 152.4 cm (5') 05/30/2022 1:55 PM OPAL POLISHER Body Mass Index 42.97 05/30/2022 1:55 PM OPAL POLISHER documented in this encounter Discharge Instructions * Discharge Instructions* Makayla Ramos MD - 06/14/2022 9:38 AM OPAL POLISHER Eye Surgery Post-Op Instructions Your surgeon???s name: [...] your vision Whom to call with concerns: [phone] - [facility] or [phone] - [facility] If after hours, listen to the voicemail for instructions for contacting the Eye Doctor correctional nurse. Thank you for entrusting us with your eye care. POLISHER * Attachments The following attachments cannot be sent through Care Everywhere. * [facility] PATHWAY TO EXCELLENT CARE AFTER SURGERY documented [...] - right eye GONIOTOMY - right eye POLISHER Source Note - Griselda Bang NP - 05/31/2022 8:25 AM OPAL POLISHER Images from the original note were not included. Center for Preoperative Assessment and Planning Preoperative Evaluation Record Evaluation type/location: TPAP from [facility] Planned procedure site: [facility] OR (Pod 4) Date: 05/31/22 NOTE: [...] Cardiovascular Pertinent negatives: hypertension ; CAD ; [place] ; CABG ; valvular heart disease; atrial [...] provided by telephone and electronically sent via Zo[employer]. Patient verbalized understanding of preoperative plan. Blood bank needs for day of procedure: No type and screen needed Pending labs/tests include: POC Glucose The patient is on aspirin therapy for primary prevention. The bleeding risk for the planned procedure is insignificant and therefore aspirin can be continued throughout the periprocedural period. Please call the CPAP chart room clinician ([phone]) with any questions. TPAP complete Preoperative evaluation [...] Diabetes mellitus (HCC) ??? Diabetic retinopathy (CMS/HCC) ([facility]) ??? Glaucoma ??? Multiparity History Of ___ Previous Pregnancies - 7 pregnancies, 2 children - C-sections. (Added by TW Conv) ??? Nonproliferative diabetic retinopathy (CMS/HCC) ([facility]) 11/03/2009 ??? Personal history of other specified conditions History of chest pain - Stress test negative on 08/01/06 (Added by TW Conv) Past Surgical History: Procedure Laterality Date ??? AR APPENDECTOMY unkown dates per pt ??? AR DELIVERY ONLY Section - in 1972 and 1975 (Added by TW Conv) ??? AR TENDON SHEATH INCISION Hand Incision Tendon [...] taking differently: Take 88 mcg by mouth police patrol lieutenant before breakfast metFORMIN (GLUCOPHAGE) 500 mg tablet [...] last 720 hours. Kathrin index score: 100 POLISHER documented in this encounter Miscellaneous Notes * Op Note - Makayla Ramos MD - 06/14/2022 9:24 AM CST DATE: 06/14/2022 PREOPERATIVE DIAGNOSIS: 1) Primary open angle glaucoma right eye. 2) Visually significant nuclear sclerotic cataract of right eye. POSTOPERATIVE DIAGNOSIS: same OPERATION PERFORMED: Phacoemulsification with intraocular lens implant and ab interno goniotomy right eye. SURGEON: Makayla Ramos MD HOE WORKER: none Implants: Implant Name Type Inv. Item Serial No. Systems Security Analyst Lot No. LRB No. Used Action [employer] LENS IOL POSTERIOR BICONVEX OPTIC SINGLE PIECE ENVISTA 6.0X12.5 +18.0D HYDROPHOBIC ACRYLIC [id number] - [id number] - [id number] Lens [employer] Lens Iol PosteriorBiconvex Optic Single Piece Envista 6.0x12.5 +18.0d Hydrophobic Acrylic [id number] [employer] Right 1 Implanted ANESTHESIA: MAC with [...] None CONDITION ON DISCHARGE FROM OPERATING ROOM:stable POLISHER * Perioperative Nursing Note - Fabi Mathews RN - 06/14/2022 9:18 AM OPAL POLISHER Intraocular lens implant ordered and verified per surgeon prior to implantation POLISHER * Pre-Procedure Instructions - Griselda Bang NP - 05/31/2022 8:20 AM CST Center for Preoperative Assessment and Planning CPAP Clinic Location: [facility] The night before your surgery: * Do [...] going to be admitted after surgery at [facility], COVID testing may be performed on the day of surgery, even if you are up to date on your COVID-19 vaccine. * If having surgery at [facility], you may want to bring a credit card if you want to use our Mobile Pharmacy for your discharge medications. Mobile pharmacy is not available at [facility], the [facility], or the [facility]. Outpatient Surgery: * You must have a [...] with COVID-19. You test positive for COVID-19. POLISHER * Perioperative Nursing Note - Katie Nicolas RN - 05/30/2022 2:00 PM OPAL POLISHER Center for Preoperative Assessment and Planning Perioperative Nursing Note Telephone Preoperative Evaluation ([facility]) - TELEPHONE ONLY, NO PHYSICAL EXAM Date: [...] (Patient takingdifferently: Take 88 mcg by mouth police patrol lieutenant before breakfast) 90 tablet 3 metFORMIN (GLUCOPHAGE) [...] Family members Assistance Needed: pt will have driver trainee day of surgery Patient expects to be discharged to:: Private residence LINE CREWMAN NO ADDITIONAL COMMENTS/ FOLLOW UP POLISHER * Pre-Procedure Instructions - Katie Nicolas RN - 05/30/2022 1:57 PM OPAL POLISHER [facility] FOR PREOPERATIVE [facility]ESSMENT AND PLANNING (CPAP) [...] your insurance card, a photo ID (example: Medical Coding Manager's License) and a method of payment for [...] Chart. If you are having surgery at [facility], please arrive on the day of surgery [...] questions, please call the CPAP Staff at [phone], Saturday-Saturday 8am-4:30pm. All patients should read the below section: All visitors/patients are being asked to wear a clean face mask when entering the hospital. COVID 19 Updates & Visitor Policy: Please access [email or web address] for the most updated information. Information on [facility]: Please view [email or web address] (Patient & Visitor Information) for additional details regarding Advanced Directive forms, AWARE, directions, parking information, lodging, Internet access, dining and more. Information on [facility] or [facility] ([facility]): Please view [email or web address] (Patient and Visitor Information) for parking/directions and more. For MyChart information, to activate account or password recovery, please go to [email or web address] or call [phone] (toll-free: [phone]). Information for Suicide Prevention: National Suicide Prevention Lifeline (3-052- 748-HKGU (5972)). Surgery Times: For patients having surgery @ [facility], [facility], [facility] or [facility] ([facility]), if your surgeon's office has not notified you of your surgery time by NOON THE BUSINESS DAY BEFORE your surgery, please call [phone] and ask for your surgeon's office Dr Ramos. For patients having [facility] @ [facility], if your surgeon's office has not notified you of your surgery time by NOON THE BUSINESS DAY BEFORE your surgery, please call the surgery center [phone]. POLISHER documented in this encounter Plan of Treatment Not on file documented as of this encounter Procedures Procedure Name Priority Date/Time Associated Diagnosis Comments POCT GLUCOSE DEVICE Routine 06/14/2022 9 :46 AM OPAL POLISHER GONIOTOMY 06/14/2022 9:16 AM OPAL POLISHER Nuclear sclerotic cataract of both eyes Primary open angle glaucoma of both eyes, moderate stage EXTRACTION CATARACT - PHACOEMULSIFICATION AND LENS IMPLANT 06/14/2022 9:16 AM OPAL POLISHER Nuclear sclerotic cataract of both eyes Primary open angle glaucoma of both eyes, moderate stage POCT GLUCOSE DEVICE Routine 06/14/2022 9 :01 AM OPAL POLISHER documented in this encounter Results * POCT glucose (06/14/2022 9:46 AM OPAL POLISHER) Glucose, POC 86 70 - 199 mg/dL [facility] Blood 06/14/2022 9:46 AM OPAL POLISHER 06/14/2022 9:46 AM OPAL POLISHER us Makayla Ramos MD LAB POCT ORDERABLES - DEVICE Final Result [facility] Department [place] [address] * POCT glucose (06/14/2022 9:01 AM OPAL POLISHER) Glucose, POC 84 70 - 199 mg/dL [facility] Blood 06/14/2022 9:01 AM OPAL POLISHER 06/14/2022 9:01 AM OPAL POLISHER us Makayla Ramos MD LAB POCT ORDERABLES - DEVICE Final Result [facility] [place] [address] documented in this encounter Visit Diagnoses Diagnosis [...] at 0924, Intra-Op Given 06/14/2022 9:24 AM OPAL POLISHER 15 mL Right Eye BSS-EPINEPHrine 0.3 mg preservative free intraocular solution (total volume 500 mL) As needed, Starting on Dilma 06/14/22 at 0924, Intra-Op Given 06/14/2022 9:24 AM OPAL POLISHER 500 mL cefuroxime (ZINACEF) 20 mg/2 mL in sodium chloride 0.9% intracameral (premix) As needed, Starting on Dilma 06/14/22 at 0001, Intra-Op Given 06/14/2022 12:01 AM OPAL POLISHER 0.1 mL dilating cocktail ophthalmic solution 0.3 [...] During Ocular Surgery Given 06/14/2022 9:03 AM OPAL POLISHER 0.3 mL Given 06/14/2022 8:48 AM OPAL POLISHER 0.3 mL Lactated Ringer's (LR) infusion 30 mL/hr, intravenous, Continuous, Starting on Dilma 06/14/22 at 0900, Pre-Op Rate/Dose Verify 06/14/2022 9:17 AM OPAL POLISHER 30 m L/hr New Bag 06/14/2022 8:48 AM OPAL POLISHER 30 mL/hr 30 mL/hr lidocaine PF (XYLOCAINE) 10 mg/mL (1 %) preservative free injection As needed, Starting on Dilma 06/14/22 at 0925, Intra-Op Given 06/14/2022 9:25 AM OPAL POLISHER 0.2 mL neomycin-polymyxin B-dexAMETHasone (MAXITROL) ophthalmic ointment As needed, Starting on Dilma 06/14/22 at 0925, Intra-Op Given 06/14/2022 9:25 AM OPAL POLISHER 1 application (deactivated) prochlorperazine (COMPAZINE) injection 5 mg 5 mg, intravenous, Administer over 2 Minutes, Once as needed, nausea, vomiting, Starting on Dilma 06/14/22 at 0946, For 1 dose, Phase I, If nausea/vomiting not relieved by ondansetron within 30 minutes or if ondansetron has been given within the last 6 hours. Given 06/14/2022 9:50 AM OPAL POLISHER 5 mg tetracaine (PF) (ALTACAINE) 0.5 % ophthalmic solution As needed, Starting on Dilma 06/14/22 at 0925, Intra-Op, Indications: Administration of Corneal AnesthesiaIndications:Administ ration of Corneal Anesthesia Given 06/14/2022 9:25 AM OPAL POLISHER 2 drops documented in this encounter Discontinued [...] Recently Administered Medications Times are shown in OPAL POLISHER. Scheduled Medication Order 06/12/2022 06/13/2022 06/14/2022 dilating [...] 06/14/2022 documented in this encounter Care Teams Hole Digger Relationship Specialty Start Date End Date Elpidio Serrato MD PCP - General Internal Medicine 06/09/18 documented as of this encounter
--- OUTSIDE RECORDS SUMMARY | 2024-04-29 21:20 | XMS_ITS | Encounter Summary ---
Author Organization [facility] Healthcare Address [address] [place] [address] Care Team Providers Care Magento Developer Name Role Phone Elpidio Serrato MD Primary Care Provider [phone] Reason for Visit * Auth/Cert Specialty Diagnoses / Procedures Referred By Contac t Referred To Contact Diagnoses Primary open angle glaucoma (POAG) of both eyes, moderate stage Nuclear sclerotic cataract of left eye Primary open angle glaucoma (POAG) of both eyes, moderate stage [H40.1132] Nuclear sclerotic cataract of left eye [H25.12] Procedures MA XCAPSL CTRC RMVL INSJ IO LENS PROSTH W/O ECP MA GONIOTOMY MA XCAPSL CTRC RMVL INSJ IO LENS PROSTH CPLX WO ECP EXTRACTION CATARACT - PHACOEMULSIFICATION AND LENS IMPLANT GONIOTOMY Referral ID Status Reason Start Date Expiration Date Visits Re quested Visits Authorized [id number] 1 1 Encounter Details Date Type Department Care Team (Latest Contact Info) Description 08/16/2022 6:50 AM CDT - 08/16/2022 10:05 AM CDT Hospital Encounter [facility] Operating Room [facility]) [address] [place] [address] Makayla Ramos MD [facility] [place] [address] Discharge Disposition: Discharge to home or self [...] file Legal Sex Female 3:59 AM SOCIAL MEDIA SPECIALIST Gender Identity Female 05/13/2021 4:21 PM SOCIAL MEDIA SPECIALIST Sexual Orientation Not on file [...] your vision Whom to call with concerns: [phone] - [facility] or [phone] - [facility] If after hours, listen to the voicemail for instructions for contacting the Eye Doctor solderer production line. Thank you for entrusting us with your eye care. * Attachments The following attachments cannot be sent through Care Everywhere. * [facility] PATHWAY TO EXCELLENT CARE AFTER SURGERY documented [...] Preoperative Evaluation Record Evaluation type/location: TPAP from [facility] Planned procedure site: [facility] CAM OR (Pod 4) Date: 08/03/22 NOTE: [...] Cardiovascular Pertinent negatives: hypertension ; CAD ; [place] ; CABG ; valvular heart disease; atrial [...] provided by telephone and electronically sent via Nursing Home Quality. Patient verbalized understanding of preoperative plan. Blood bank needs for day of procedure: No type and screen needed Pending labs/tests include: POC Glucose The patient is on aspirin therapy for primary prevention. The bleeding risk for the planned procedure is insignificant and therefore aspirin can be continued throughout the periprocedural period. Please call the CPAP chart room clinician ([phone]) with any questions. TPAP complete Preoperative evaluation [...] EXTRACTION Right 06/14/2022 CE/IOL + goniotomy ??? MA APPENDECTOMY unkown dates per pt ??? MA DELIVERY ONLY Section - in 1972 and 1975 (Added by TW Conv) ??? MA TENDON SHEATH INCISION Hand Incision Tendon [...] taking differently: Take 88 mcg by mouth senior applications architect before breakfast metFORMIN (GLUCOPHAGE) 500 mg tablet [...] Other Thyroid Disorder - mother (Added by Contests4Causes Conv) ??? Diabetes type II Other Type [...] goniotomy left eye. SURGEON: Makayla Ramos MD SPORTS EQUIPMENT RACKER: Swapna Head MD Implants: Implant Name Type Inv. Item Serial No. Senior Director Insight Lot No. LRB No. Used Action [employer] LENS IOL POSTERIOR BICONVEX OPTIC SINGLE PIECE ENVISTA 6.0X12.5 +18.0D HYDROPHOBIC ACRYLIC [id number] - [id number] - [id number] Lens [employer] Lens Iol Posterior Biconvex Optic Single Piece Envista 6.0x12.5 +18.0d Hydrophobic Acrylic [id number] [employer] [id number] Left 1 Implanted ANESTHESIA: MAC with Local [...] Preoperative Assessment and Planning CPAP Clinic Location: [facility] The night before your surgery: * [...] Planning Perioperative Nursing Note Telephone Preoperative Evaluation ([facility]) - TELEPHONE ONLY, NO PHYSICAL EXAM Date: [...] (Patient takingdifferently: Take 88 mcg by mouth senior applications architect before breakfast) 90 tablet 3 metFORMIN (GLUCOPHAGE) [...] Single Piece Envista 6.0x12.5 +18.0d Hydrophobic Acrylic [id number] - [id number] - [id number] - Implanted (Right) Lens Inventory item: [employer] Lens Iol Posterior Biconvex Optic Single Piece Envista 6.0x12.5 +18.0d Hydrophobic Acrylic [id number] Model/Cat number: [id number] Serial number: [id number] Senior Director Insight: [employer] Device identifier: [id number] Device identifier type: GS1 As of 06/14/2022 [...] provided Information Provided on Healthcare Directives: Yes Communication/Chainstitch Elastic Attacher Needs Communication Needs: Glasses Does caregiver's language differ from patient's?: No Assistive Devices/DME: Eyeglasses Discharge Planning Type of Residence: Private residence Living Arrangements: Family members Support Systems: Family members Assistance Needed: Daughter to provide discharge transportation Patient expects to be discharged to:: Private residence FACILITIES SPECIALIST NO ADDITIONAL COMMENTS/ FOLLOW UP * Pre-Procedure [...] remove nail coverings, artificial nails and nail namibian prior to the day of surgery. You should leave your valuables and any jewelry at home. No metal or piercings are allowed in the operating room. You should bring your insurance card, a photo ID (example: Solar Sales Energy Advisor's License) and a method of payment for [...] Chart. If you are having surgery at [facility], please arrive on the day of surgery [...] Remove nail coverings, artificial nails and nail namibian. Place clean linens on your bed the [...] questions, please call the CPAP Staff at [phone], Saturday-Saturday 8am-4:30pm. All patients should read the below section: All visitors/patients are being asked to wear a clean face mask when entering the hospital. COVID 19 Updates & Visitor Policy: Please access [email or web address] for the most updated information. Information on [facility]: Please view [email or web address] (Patient & Visitor Information) for additional details regarding Advanced Directive forms, AWARE, directions, parking information, lodging, Internet access, dining and more. Information on [facility] or [facility] [place] ([facility]): Please view [email or web address] (Patient and Visitor Information) for parking/directions and more. For MyChart information, to activate account or password recovery, please go to [email or web address] or call [phone] (toll-free: [phone]). Information for Suicide Prevention: National Suicide Prevention Lifeline (6-224- 354-BQBE (0139)). Surgery Times: For patients having surgery @ [facility], [facility] or [facility] [place] ([facility]), if your surgeon's office has not notified you of your surgery time by NOON THE BUSINESS DAY BEFORE your surgery, please call [phone] and ask for your surgeon's office . [...] Glucose, POC 75 70 - 199 mg/dL [facility] Blood 08/16/2022 9:14 AM CDT 08/16/2022 9:14 AM CDT Makayla Ramos MD LAB POCT ORDERABLES - DEVICE Final Result Performing Organization Address [facility] Co de Phone Number [facility] [place] [address] * POCT glucose (08/16/2022 8:07 AM CDT) Glucose, POC 82 70 - 199 mg/dL [facility] Blood 08/16/2022 8:07 AM CDT 08/16/2022 8:07 AM CDT Makayla Ramos MD LAB POCT ORDERABLES - DEVICE Final Result Performing Organization Address [facility] Co de Phone Number [facility] [place] [address] documented in this encounter Visit Diagnoses Diagnosis [...] 08/16/2022 documented in this encounter Care Teams Magento Developer Relationship Specialty Start Date End Date Elpidio Serrato MD PCP - General Internal Medicine 06/09/18 documented as of this encounter
--- OUTSIDE RECORDS SUMMARY | 2024-04-29 21:20 | XMS_ITS | Encounter Summary ---
Author Organization [facility] Address [address] [place] [address] Phone Care Team Providers Care Brick Wheeler Name Role Phone Elpidio Serrato MD Primary Care Provider [phone] Reason for Visit * Reason Onset Date Comments 08/16/2022 Surgery 06/25/2022 Encounter Details Date Type Department Care Team (Late st Contact Info) Description 06/25/2022 Telephone [facility] Ophthalmology [address], [address] [place] [address] Geovanna Doe COA 08/16/2022 Surgery [...] on file Legal Sex Female 3:59 AM HALL MONITOR Gender Identity Female 05/13/2021 4:21 PM HALL MONITOR Sexual Orientation Not on file documented as of this encounter Miscellaneous Notes * Telephone Encounter - Geovanna Doe COA - 06/25/2022 9:21 AM HALL MONITOR Phoned patient to schedule surgery: Discussed surgery [...] auth: [] Line up (arrival time) [] MONITOR MONITOR MONITOR documented in this encounter Plan of Treatment Not on file documented as of this encounter Visit Diagnoses Not on filedocumented in this encounter Care Teams Brick Wheeler Relationship Specialty Start Date End Date Elpidio Serrato MD PCP - General Internal Medicine 06/09/18 documented as of this encounter
--- OUTSIDE RECORDS SUMMARY | 2024-04-29 21:20 | XMS_ITS | Encounter Summary ---
Author Organization [facility] Address [address] [place] [address] Phone Care Team Providers Care Ornamental Metal Worker Name Role Phone Elpidio Serrato MD Primary Care Provider [phone] Encounter Details Date Type Department Care Team (Late st Contact Info) Description 06/22/2022 Orders Only [facility] Endocrinology Metabolism and Lipid [address] Advanced Medicine [address]th [place] [address] [place] [address] Princess Hu RMA Social History [...] on file Legal Sex Female 3:59 AM EXTRACTOR PLANT OPERATOR Gender Identity Female 05/13/2021 4:21 PM EXTRACTOR PLANT OPERATOR Sexual Orientation Not on file documented [...] documented as of this encounter Care Teams Ornamental Metal Worker Relationship Specialty Start Date End Date Elpidio Serrato MD PCP - General Internal Medicine 06/09/18 documented as of this encounter
--- OUTSIDE RECORDS SUMMARY | 2024-04-29 21:20 | XMS_ITS | Encounter Summary ---
Author Organization [facility] Address [address] [place] [address] Phone Care Team Providers Care Brick Setter Operator Name Role Phone Elpidio Serrato MD Primary Care Provider [phone] Reason for Visit * Reason Comments Post-op Encounter Details Date Type Department Care Team (Late st Contact Info) Description 06/15/2022 8:15 AM TRANSACTION PROCESSOR Office Visit [facility] Ophthalmology [address] [facility] [place] [address] Makayla Ramos MD [address] [place] [address] Primary open angle glaucoma (POAG) [...] on file Legal Sex Female 3:59 AM TRANSACTION PROCESSOR Gender Identity Female 05/13/2021 4:21 PM TRANSACTION PROCESSOR Sexual Orientation Not on file documented [...] agree with the findings/plan of the Resident/Fellow SACTION PROCESSOR documented in this encounter Miscellaneous Notes * Assessment & Plan Note - Vincent Gamboa MD - 06/15/2022 8:24 AM TRANSACTION PROCESSOR Associated Problem(s): Primary open angle glaucoma (POAG) [...] Followup 1 week or sooner for concerns. SACTION PROCESSOR SACTION PROCESSOR documented in this encounter Plan of Treatment [...] 0.85 0.85-9 Macula Normal Normal Care Teams Brick Setter Operator Relationship Specialty Start Date End Date Elpidio Serrato MD PCP - General Internal Medicine 06/09/18 documented as of this encounter
--- OUTSIDE RECORDS SUMMARY | 2024-04-29 21:21 | XMS_ITS | Encounter Summary ---
Author Organization [facility] Address [address] [place] [address] Phone Care Team Providers Care Net Lead Architect Name Role Phone Elpidio Serrato MD Primary Care Provider [phone] Reason for Visit * Reason Onset Date Comments CMN 09/12/2021 Noemi Encounter Details Date Type Department Care Team (Late st Contact Info) Description 09/12/2021 Telephone [facility] Endocrinology Metabolism and Lipid 10 [facility] Office Building [address] [address] Princess Hu RMA CMN ([facility]) Social History Tobacco Use Types Packs/Day Years Used Date Smoking Tobacco: Never Smokeless Tobacco: Never Comments Unknown Sex and Gender Information Value Date Recorded Sex Assigned at Not on file Legal Sex Female 3:59 AM WAREHOUSE AND RECEIVING SUPERVISOR Gender Identity Female 05/13/2021 4:21 PM WAREHOUSE AND RECEIVING SUPERVISOR Sexual Orientation Not on file documented [...] on filedocumented in this encounter Care Teams Net Lead Architect Relationship Specialty Start Date End Date Elpidio Serrato MD PCP - General Internal Medicine 06/09/18 documented as of this encounter
--- OUTSIDE RECORDS SUMMARY | 2024-04-29 21:21 | XMS_ITS | Encounter Summary ---
Author Organization [facility] Address [address] [place] [address] Phone Care Team Providers Care Sociology Faculty Member Name Role Phone Elpidio Serrato MD Primary Care Provider [phone] Encounter Details Date Type Department Care Team (Late st Contact Info) Description 01/02/2022 Telephone [facility] Endocrinology Metabolism and Lipid [address] [facility] 5[address] [place] [address] [place] [address] Jose Antonio Chang EMT Social History Tobacco Use Types Packs/Day Years Used Date Smoking Tobacco: Never Smokeless Tobacco: Never Comments Unknown Sex and Gender Information Value Date Recorded Sex Assigned at Not on file Legal Sex Female 3:59 AM ROUTE DELIVERY CLERK Gender Identity Female 05/13/2021 4:21 PM ROUTE DELIVERY CLERK Sexual Orientation Not on file documented as of this encounter Miscellaneous Notes * Telephone Encounter - Jose Antonio Chang EMT - 01/02/2022 10:59 AM CDT CMN SENT documented in this encounter Plan of Treatment Not on file documented as of this encounter Visit Diagnoses Not on filedocumented in this encounter Care Teams Sociology Faculty Member Relationship Specialty Start Date End Date Elpidio Serrato MD PCP - General Internal Medicine 06/09/18 documented as of this encounter
--- OUTSIDE RECORDS SUMMARY | 2024-04-29 21:21 | XMS_ITS | Encounter Summary ---
Author Organization [facility] Address [address] [place] [address] Phone Care Team Providers Care Prover Name Role Phone Elpidio Serrato MD Primary Care Provider [phone] Reason for Referral * Diagnostic Imaging (Routine) - Closed Specialty Diagnoses / Procedures Referred By Constantino alvarado Referred To Contact Diagnoses Primary open angle glaucoma (POAG) of both eyes, moderate stage Procedures Forrest Visual Field - OU - Both Eyes Makayla Ramos MD [address] [place] [address] Phone: tel: fax: [facility] (All Locations) Referral ID Status Reason Start Date Expiration Date Visits Re quested Visits Authorized [id number] Closed 06/04/2022 07/04/2023 1 1 RVISOR PILE DRIVING Encounter Details Date Type Department Care Team (Late st Contact Info) Description 06/04/2022 9:15 AM SUPERVISOR PILE DRIVING Office Visit [facility] Ophthalmology [facility] [place] [address] Makayla Ramos MD [address] [place] [address] Primary open angle glaucoma (POAG) [...] file Legal Sex Female 3:59 AM SUPERVISOR PILE DRIVING Gender Identity Female 05/13/2021 4:21 PM SUPERVISOR PILE DRIVING Sexual Orientation Not on file documented as [...] agree with the findings/plan of the Resident/Fellow RVISOR PILE DRIVING documented in this encounter Miscellaneous Notes * Assessment & Plan Note - Makayla Ramos MD - 06/04/2022 2:51 PM SUPERVISOR PILE DRIVING Associated Problem(s): Pseudophakia of both eyes NS [...] perioperative steroids: no Book Phaco/IOL/goniotomy right eye. RVISOR PILE DRIVING * Assessment & Plan Note - Makayla Ramos MD - 06/04/2022 2:51 PM SUPERVISOR PILE DRIVING Associated Problem(s): Primary open angle glaucoma (POAG) of both eyes, moderate stage Progression of field - plan for goniotomy at time of surgery Continue drops at this time RVISOR PILE DRIVING documented in this encounter Plan of Treatment Not on file documented as of this encounter Procedures Procedure Name Priority Date/Time Associated Diagnosis Comments FORREST VISUAL FIELD - OU - BOTH EYES Routine 06/04/2022 2:50 PM SUPERVISOR PILE DRIVING Primary open angle glaucoma (POAG) of both eyes, moderate stage documented in this encounter Results * Forrest Visual Field - OU - Both Eyes (06/04/2022 2:50 PM SUPERVISOR PILE DRIVING) Anatomical Region Laterality Modality Head Visual Field Narrative 06/04/2022 2:50 PM SUPERVISOR PILE DRIVING Right Eye Fixation was good. Cooperation was [...] Macula Normal Normal Wearing Rx Sphere Cylinder [place] Add Right eye -3.25 +1.00 166 +2.50 Left eye -2.75 +0.75 035 +2.50 Manifest Refraction Sphere Cylinder [place] Dist [facility] Right eye -4.25 +1.00 165 20/30+2 Left eye -3.00 +0.75 035 20/25 Care Teams Prover Relationship Specialty Start Date End Date Elpidio Serrato MD PCP - General Internal Medicine 06/09/18 documented as of this encounter
--- OUTSIDE RECORDS SUMMARY | 2024-04-29 21:21 | XMS_ITS | Encounter Summary ---
Author Organization [facility] Address [address] [place] [address] Phone Care Team Providers Care Slitter Operator Name Role Phone Elpidio Serrato MD Primary Care Provider [phone] Reason for Visit * Reason Onset Date Comments CMN 09/05/2021 [facility] Encounter Details Date Type Department Care Team (Late st Contact Info) Description 09/05/2021 Telephone [facility] Endocrinology Metabolism and Lipid 10 [facility] Office Building [address] [address] Princess Hu RMA CMN ([facility]) Social History Tobacco Use Types Packs/Day Years Used Date Smoking Tobacco: Never Smokeless Tobacco: Never Comments Unknown Sex and Gender Information Value Date Recorded Sex Assigned at Not on file Legal Sex Female 3:59 AM WIRE BENDER Gender Identity Female 05/13/2021 4:21 PM WIRE BENDER Sexual Orientation Not on file documented as of this encounter Miscellaneous Notes * Telephone Encounter - Princess Hu RMA - 09/05/2021 12:57 PM CDT Images from the original note were not included. Faxed OV to [facility] for pt's diabetic supplies. documented in this encounter Plan of Treatment Not on file documented as of this encounter Visit Diagnoses Not on filedocumented in this encounter Care Teams Slitter Operator Relationship Specialty Start Date End Date Elpidio Serrato MD PCP - General Internal Medicine 06/09/18 documented as of this encounter
--- OUTSIDE RECORDS SUMMARY | 2024-04-29 21:21 | XMS_ITS | Encounter Summary ---
Author Organization [facility] Address [address] [place] [address] Phone Care Team Providers Care Skiver Machine Name Role Phone Elpidio Serrato MD Primary Care Provider [phone] Reason for Visit * Diagnostic Imaging (Routine) - Closed Specialty Diagnoses / Procedures Referred By Constantino t Referred To Contact Diagnoses Primary open angle glaucoma (POAG) of both eyes, moderate stage Procedures Forrest Visual Field - OU - Both Eyes Makayla Ramos MD [address] [place] [address] Phone: tel: fax: [facility] (All Locations) Referral ID Status Reason Start Date Expiration Date Visits Re quested Visits Authorized [id number] Closed 02/19/2022 03/21/2023 1 1 Encounter Details Date Type Department Care Team (Late st Contact Info) Description 06/04/2022 9:10 AM EMAIL MARKETING EXECUTIVE Imaging Exam [facility] Ophthalmology [address] [facility] 6th [place] [address] Social History Tobacco Use Types [...] file Legal Sex Female 3:59 AM EMAIL MARKETING EXECUTIVE Gender Identity Female 05/13/2021 4:21 PM EMAIL MARKETING EXECUTIVE Sexual Orientation Not on file documented as of this encounter Plan of Treatment Not on file documented as of this encounter Procedures Procedure Name Priority Date/Time Associated Diagnosis Comments FORREST VISUAL FIELD - OU - BOTH EYES Routine 06/04/2022 9:00 AM EMAIL MARKETING EXECUTIVE Primary open angle glaucoma (POAG) of both eyes, moderate stage documented in this encounter Results * Forrest Visual Field - OU - Both Eyes (06/04/2022 9:00 AM EMAIL MARKETING EXECUTIVE) Pattern Deviation OS 3.86 dB CONTINUUM Pattern Deviation OD 8.62 dB CONTINUUM Mean Deviation OS -3.66 dB CONTINUUM Mean Deviation OD -6.37 dB CONTINUUM Anatomical Region Laterality Modality Head Other Narrative 06/05/2022 7:10 AM EMAIL MARKETING EXECUTIVE Right Eye Fixation was good. Cooperation was [...] on filedocumented in this encounter Care Teams Skiver Machine Relationship Specialty Start Date End Date Elpidio Serrato MD PCP - General Internal Medicine 06/09/18 documented as of this encounter
--- OUTSIDE RECORDS SUMMARY | 2024-04-29 21:21 | XMS_ITS | Encounter Summary ---
Author Organization [facility] Address [address] [place] [address] Phone Care Team Providers Care Pediatric Dermatologist Name Role Phone Eplidio Serrato MD Primary Care Provider [phone] Reason for Referral * Diagnostic Imaging (Routine) - Closed Specialty Diagnoses / Procedures Referred By Constantino alvarado Referred To Contact Diagnoses Primary open angle glaucoma (POAG) of both eyes, moderate stage Procedures Forrest Visual Field - OU - Both Eyes Makayla Ramos MD [address] [place] [address] Phone: tel: fax: [facility] (All Locations) Referral ID Status Reason Start Date Expiration Date Visits Re quested Visits Authorized [id number] Closed 02/19/2022 03/21/2023 1 1 Encounter Details Date Type Department Care Team (Late st Contact Info) Description 02/19/2022 Orders Only [facility] Ophthalmology [address] [facility] [address]th [place] [address] Makayla Ramos MD [address] [place] [address] Primary open angle glaucoma (POAG) of both eyes, moderate stage (Primary Dx) Social History Tobacco Use Types Packs/Day Years Used Date Smoking Tobacco: Never Smokeless Tobacco: Never Comments Unknown Sex and Gender Information Value Date Recorded Sex Assigned at Not on file Legal Sex Female 3:59 AM COMPLEX CASE MANAGER Gender Identity Female 05/13/2021 4:21 PM COMPLEX CASE MANAGER Sexual Orientation Not on file documented as of this encounter Plan of Treatment Not on file documented as of this encounter Procedures Procedure Name Priority Date/Time Associated Diagnosis Comments FORREST VISUAL FIELD - OU - BOTH EYES Routine 06/04/2022 9:00 AM COMPLEX CASE MANAGER Primary open angle glaucoma (POAG) of both eyes, moderate stage documented in this encounter Results * Forrest Visual Field - OU - Both Eyes (06/04/2022 9:00 AM COMPLEX CASE MANAGER) Pattern Deviation OS 3.86 dB CONTINUUM Pattern Deviation OD 8.62 dB CONTINUUM Mean Deviation OS -3.66 dB CONTINUUM Mean Deviation OD -6.37 dB CONTINUUM Anatomical Region Laterality Modality Head Other Narrative 06/05/2022 7:10 AM COMPLEX CASE MANAGER Right Eye Fixation was good. Cooperation was [...] Primary documented in this encounter Care Teams Pediatric Dermatologist Relationship Specialty Start Date End Date Elpidio Serrato MD PCP - General Internal Medicine 06/09/18 documented as of this encounter
--- OUTSIDE RECORDS SUMMARY | 2024-04-29 21:21 | XMS_ITS | Encounter Summary ---
Author Organization [facility] Address [address] [place] [address] Phone Care Team Providers Care Dryer Operator Name Role Phone Elpidio Serrato MD Primary Care Provider [phone] Encounter Details Date Type Department Care Team (Late st Contact Info) Description 04/20/2022 Orders Only [facility] Endocrinology Metabolism and Lipid [address] [place] [address] Medical Office Building [address], [address] [place] [address] Princess Hu RMA Social History Tobacco Use Types Packs/Day Years Used Date Smoking Tobacco: Never Smokeless Tobacco: Never Comments Unknown Sex and Gender Information Value Date Recorded Sex Assigned at Not on file Legal Sex Female 3:59 AM MALLET CUTTER Gender Identity Female 05/13/2021 4:21 PM MALLET CUTTER Sexual Orientation Not on file documented [...] documented as of this encounter Care Teams Dryer Operator Relationship Specialty Start Date End Date Elpidio Serrato MD PCP - General Internal Medicine 06/09/18 documented as of this encounter
--- OUTSIDE RECORDS SUMMARY | 2024-04-29 21:21 | XMS_ITS | Encounter Summary ---
Author Organization [facility] Address [address] [place] [address] Phone Care Team Providers Care Packing And Final Assembly Supervisor Name Role Phone Elpidio Serrato MD Primary Care Provider [phone] Encounter Details Date Type Department Care Team (Late st Contact Info) Description 02/15/2022 Telephone [facility] Ophthalmology [address] [place] [address] Makayla Ramos MD [address] [place], [place] [address] Social History Tobacco Use Types Packs/Day Years Used Date Smoking Tobacco: Never Smokeless Tobacco: Never Comments Unknown Sex and Gender Information Value Date Recorded Sex Assigned at Not on file Legal Sex Female 3:59 AM ANIMAL ANATOMY TEACHER Gender Identity Female 05/13/2021 4:21 PM ANIMAL ANATOMY TEACHER Sexual Orientation Not on file documented [...] on filedocumented in this encounter Care Teams Packing And Final Assembly Supervisor Relationship Specialty Start Date End Date Elpidio Serrato MD PCP - General Internal Medicine 06/09/18 documented as of this encounter
--- OUTSIDE RECORDS SUMMARY | 2024-04-29 21:21 | XMS_ITS | Encounter Summary ---
Author Organization [facility] Address [address] [place] [address] Phone Care Team Providers Care Under Baster Name Role Phone Elpidio Serrato MD Primary Care Provider [phone] Reason for Referral * Diagnostic Imaging (Routine) - Closed Specialty Diagnoses / Procedures Referred By Constantino alvarado Referred To Contact Diagnoses Nuclear sclerotic cataract of both eyes Acute angle-closure glaucoma, bilateral Procedures Forrest Visual Field - OU - Both Eyes Makayla Ramos MD [address] [place] [address] Phone: tel: fax: [facility] (All Locations) Referral ID Status Reason Start Date Expiration Date Visits Re quested Visits Authorized [id number] Closed 05/19/2021 06/18/2022 1 1 ECTION ENGINEER * Diagnostic Imaging (Routine) - Closed Specialty Diagnoses / Procedures Referred By Constantino alvarado Referred To Contact Diagnoses Nuclear sclerotic cataract of both eyes Procedures IOL Biometry - OU - Both Eyes Makayla Ramos MD [address] [place] [address] Phone: tel: fax: [facility] (All Locations) Referral ID Status Reason Start Date Expiration Date Visits Re quested Visits Authorized [id number] Closed 05/19/2021 06/18/2022 1 1 ECTION ENGINEER Encounter Details Date Type Department Care Team (Late st Contact Info) Description 05/19/2021 Orders Only [facility] Ophthalmology [address] [facility] [place] [address] Makayla Ramos MD [address] [place] [address] Primary open angle glaucoma (POAG) of both eyes, moderate stage (Primary Dx); Nuclear sclerotic cataract of both eyes; Acute angle-closure glaucoma, bilateral ; Acute angle-closure glaucoma, bilateral Social History Tobacco Use Types Packs/Day Years Used Date Smoking Tobacco: Never Smokeless Tobacco: Never Comments Unknown Sex and Gender Information Value Date Recorded Sex Assigned at Not on file Legal Sex Female 3:59 AM PROTECTION ENGINEER Gender Identity Female 05/13/2021 4:21 PM PROTECTION ENGINEER Sexual Orientation Not on file documented as of this encounter Plan of Treatment Not on file documented as of this encounter Procedures Procedure Name Priority Date/Time Associated Diagnosis Comments FORREST VISUAL FIELD - OU - BOTH EYES Routine 05/19/2021 4:26 PM PROTECTION ENGINEER Nuclear sclerotic cataract of both eyes Acute angle-closure glaucoma, bilateral IOL BIOMETRY - OU - BOTH EYES Routine 05/19/2021 4:25 PM PROTECTION ENGINEER Nuclear sclerotic cataract of both eyes documented in this encounter Results * Forrest Visual Field - OU - Both Eyes (05/19/2021 4:26 PM PROTECTION ENGINEER) Anatomical Region Laterality Modality Head Visual Field Narrative 05/19/2021 4:26 PM PROTECTION ENGINEER Right Eye Fixation was good. Cooperation was good. Reliability was good. Progression has worsened. Findings include superior nasal step defect. Left Eye Fixation was good. Cooperation was good. Reliability was good. Progression has worsened. Findings include superior arcuate defect. us Makayla Ramos MD OPHTH VISUAL FIELD Final Resu lt * IOL Biometry - OU - Both Eyes (05/19/2021 4:25 PM PROTECTION ENGINEER) A LENGTH (OS) 24.49 A LENGTH (OD) 24.58 White to White (OS) 12.1 mm White to White (OD) 12.1 mm Anatomical Region Laterality Modality Head Other Narrative 05/19/2021 4:25 PM PROTECTION ENGINEER Right Eye Axial length was 24.58. White [...] glaucoma documented in this encounter Care Teams Under Baster Relationship Specialty Start Date End Date Elpidio Serrato MD PCP - General Internal Medicine 06/09/18 documented as of this encounter
--- OUTSIDE RECORDS SUMMARY | 2024-04-29 21:21 | XMS_ITS | Encounter Summary ---
Author Organization [facility] Address [address] [place] [address] Phone Care Team Providers Care Machine Tracer Name Role Phone Elpidio Serrato MD Primary Care Provider Reason for Visit * Reason Onset Date Comments 06/14/2022 surgery 05/29/2022 Encounter Details Date Type Department Care Team (Late st Contact Info) Description 05/29/2022 Telephone [facility] Ophthalmology [facility] [place] [address] Geovanna Doe COA 06/14/2022 surgery [...] on file Legal Sex Female 3:59 AM DELIVERY AND INSTALLATION SUBCONTRACTOR Gender Identity Female 05/13/2021 4:21 PM DELIVERY AND INSTALLATION SUBCONTRACTOR Sexual Orientation Not on file documented as of this encounter Miscellaneous Notes * Telephone Encounter - Geovanna Doe COA - 06/13/2022 8:56 AM DELIVERY AND INSTALLATION SUBCONTRACTOR Spoke to patient and gave all surgery details for surgery scheduled on 06/14/[address] Ramos Arrival time: 7:30am Surgery is at [facility] on the 4th floor. Remember; nothing to eat or drink after midnight the night before and make sure they have a dedicated local truck driver to drive them home (family member or friend). For the patient's safety, Uber/Taxis are not acceptable transportation after discharge. Address: [facility], 4th floor surgery center. [address] [place] [address] VERY AND INSTALLATION SUBCONTRACTOR * Telephone Encounter - Geovanna Doe COA - 05/29/2022 3:06 PM DELIVERY AND INSTALLATION SUBCONTRACTOR Phoned patient to schedule surgery: [facility] Pre-Op appt scheduled 06/04/2022 Discussed surgery date: [...] PA needed Line up (arrival time) [x] VERY AND INSTALLATION SUBCONTRACTOR VERY AND INSTALLATION SUBCONTRACTOR VERY AND INSTALLATION SUBCONTRACTOR VERY AND INSTALLATION SUBCONTRACTOR VERY AND INSTALLATION SUBCONTRACTOR documented in this encounter Plan of Treatment Not on file documented as of this encounter Visit Diagnoses Not on filedocumented in this encounter Care Teams Machine Tracer Relationship Specialty Start Date End Date Elpidio Serrato MD PCP - General Internal Medicine 06/09/18 documented as of this encounter
--- OUTSIDE RECORDS SUMMARY | 2024-04-29 21:21 | XMS_ITS | Encounter Summary ---
Author Organization [facility] Address [address] [place] [address] Phone Care Team Providers Care Flight Coordinator Name Role Phone Elpidio Serrato MD Primary Care Provider [phone] Encounter Details Date Type Department Care Team (Late st Contact Info) Description 05/19/2021 8:30 AM PENOLOGY TEACHER Office Visit [facility] [address] [facility] [place] [id number] Makayla Ramos MD [address] [place] [address] Primary open angle glaucoma (POAG) of both eyes, moderate stage (Primary Dx); Nuclear sclerotic cataract of both eyes Social History Tobacco Use Types Packs/Day Years Used Date Smoking Tobacco: Never Smokeless Tobacco: Never Comments Unknown Sex and Gender Information Value Date Recorded Sex Assigned at Not on file Legal Sex Female 3:59 AM PENOLOGY TEACHER Gender Identity Female 05/13/2021 4:21 PM PENOLOGY TEACHER Sexual Orientation Not on file documented as of this encounter Patient Instructions * Patient Instructions* Makayla Ramos MD - 05/19/2021 8:30 AM PENOLOGY TEACHER LOGY TEACHER documented in this encounter Progress Notes * [...] agree with the findings/plan of the Resident/Fellow LOGY TEACHER documented in this encounter Miscellaneous Notes * Assessment & Plan Note - Makayla Ramos MD - 05/19/2021 4:27 PM PENOLOGY TEACHER Associated Problem(s): Primary open angle glaucoma (POAG) of both eyes, moderate stage POAG OU 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 LOGY TEACHER documented in this encounter Plan of Treatment [...] 0.85 0.85-9 Macula Normal Normal Care Teams Flight Coordinator Relationship Specialty Start Date End Date Elpidio Serrato MD PCP - General Internal Medicine 06/09/18 documented as of this encounter
--- OUTSIDE RECORDS SUMMARY | 2024-04-29 21:21 | XMS_ITS | Encounter Summary ---
Author Organization [facility] Address [address] [place] [address] Phone Care Team Providers Care Software Integration Developer Name Role Phone Elpidio Serrato MD Primary Care Provider [phone] Encounter Details Date Type Department Care Team (Late st Contact Info) Description 02/19/2022 Telephone [facility] [address] [place] [address] Makayla Ramos MD [address] [place], [place] [id number] Social History Tobacco Use Types Packs/Day Years Used Date Smoking Tobacco: Never Smokeless Tobacco: Never Comments Unknown Sex and Gender Information Value Date Recorded Sex Assigned at Not on file Legal Sex Female 3:59 AM ADMISSIONS DIRECTOR Gender Identity Female 05/13/2021 4:21 PM ADMISSIONS DIRECTOR Sexual Orientation Not on file documented [...] on filedocumented in this encounter Care Teams Software Integration Developer Relationship Specialty Start Date End Date Elpidio Serrato MD PCP - General Internal Medicine 06/09/18 documented as of this encounter
--- OUTSIDE RECORDS SUMMARY | 2024-04-29 21:21 | XMS_ITS | Encounter Summary ---
Author Organization [facility] Healthcare Address [address] [place] [address] Care Team Providers Care Drop Wire Builder Name Role Phone lEpidio Serrato MD Primary Care Provider [phone] Reason for Visit * Auth/Cert Specialty Diagnoses / Procedures Referred By Contac t Referred To Contact Diagnoses Nuclear sclerotic cataract of both eyes Primary open angle glaucoma of both eyes, moderate stage Nuclear sclerotic cataract of both eyes [H25.13] Primary open angle glaucoma of both eyes, moderate stage [H40.1132] Procedures SD XCAPSL CTRC RMVL INSJ IO LENS PROSTH W/O ECP SD GONIOTOMY EXTRACTION CATARACT - PHACOEMULSIFICATION AND LENS IMPLANT - right eye GONIOTOMY - right eye Referral ID Status Reason Start Date Expiration Date Visits Re quested Visits Authorized [id number] 1 1 Encounter Details Date Type Department Care Team (Latest Contact Info) Description 06/14/2022 7:55 AM MEASUREMENT SPECIALIST - 06/14/2022 10:54 AM [facility] [address] [place] [address] Makayla Ramos MD [facility] [place] [address] Discharge Disposition: Discharge to home or self [...] on file Legal Sex Female 3:59 AM MEASUREMENT SPECIALIST Gender Identity Female 05/13/2021 4:21 PM MEASUREMENT SPECIALIST Sexual Orientation Not on file documented as of this encounter Last Filed Vital Signs Vital Sign Reading Time Taken Comments Blood Pressure 115/43 06/14/2022 10:40 AM MEASUREMENT SPECIALIST Pulse 72 06/14/2022 10:40 AM MEASUREMENT SPECIALIST Temperature 36 ??C (96.8 ??F) 06/14/2022 9:40 AM MEASUREMENT SPECIALIST Respiratory Rate 18 06/14/2022 10:40 AM MEASUREMENT SPECIALIST Oxygen Saturation 96% 06/14/2022 10:40 AM MEASUREMENT SPECIALIST Inhaled Oxygen Concentration - - Weight 99.8 kg (220 lb) 05/30/2022 1:55 PM MEASUREMENT SPECIALIST Height 152.4 cm (5') 05/30/2022 1:55 PM MEASUREMENT SPECIALIST Body Mass Index 42.97 05/30/2022 1:55 PM MEASUREMENT SPECIALIST documented in this encounter Discharge Instructions * Discharge Instructions* Makayla Ramos MD - 06/14/2022 9:38 AM MEASUREMENT SPECIALIST Eye Surgery Post-Op Instructions Your surgeon???s [...] your vision Whom to call with concerns: [phone] - [facility] or [phone] - [facility] If after hours, listen to the voicemail for instructions for contacting the Eye Doctor infusion therapy nurse. Thank you for entrusting us with your eye care. UREMENT SPECIALIST * Attachments The following attachments cannot be sent through Care Everywhere. * [facility] PATHWAY TO EXCELLENT CARE AFTER SURGERY [...] - right eye GONIOTOMY - right eye UREMENT SPECIALIST Source Note - Griselda Bang NP - 05/31/2022 8:25 AM MEASUREMENT SPECIALIST Images from the original note were not included. Center for Preoperative Assessment and Planning Preoperative Evaluation Record Evaluation type/location: TPAP from [facility] Planned procedure site: [facility] OR (Pod 4) Date: 05/31/22 [...] provided by telephone and electronically sent via Manufacturers[employer] Inventory. Patient verbalized understanding of preoperative plan. Blood bank needs for day of procedure: No type and screen needed Pending labs/tests include: POC Glucose The patient is on aspirin therapy for primary prevention. The bleeding risk for the planned procedure is insignificant and therefore aspirin can be continued throughout the periprocedural period. Please call the CPAP chart room clinician ([phone]) with any questions. TPAP complete Preoperative evaluation [...] Past Surgical History: Procedure Laterality Date ??? SD APPENDECTOMY unkown dates per pt ??? SD DELIVERY ONLY Section - in 1972 and 1975 (Added by TW Conv) ??? SD TENDON SHEATH INCISION Hand Incision Tendon [...] differently: Take 88 mcg by mouth early childhood teacher assistant before breakfast metFORMIN (GLUCOPHAGE) 500 mg tablet [...] last 720 hours. Kathrin index score: 100 UREMENT SPECIALIST documented in this encounter Miscellaneous Notes * Op Note - Makayla Ramos MD - 06/14/2022 9:24 AM CST DATE: 06/14/2022 PREOPERATIVE DIAGNOSIS: 1) Primary open angle glaucoma right eye. 2) Visually significant nuclear sclerotic cataract of right eye. POSTOPERATIVE DIAGNOSIS: same OPERATION PERFORMED: Phacoemulsification with intraocular lens implant and ab interno goniotomy right eye. SURGEON: Makayla Ramos MD SALES AND MERCHANDISING ASSOCIATE: none Implants: Implant Name Type Inv. Item Serial No. Pool Cleaner Lot No. LRB No. Used Action [employer] LENS IOL POSTERIOR BICONVEX OPTIC SINGLE PIECE ENVISTA 6.0X12.5 +18.0D HYDROPHOBIC ACRYLIC [id number] - [id number] - [id number] Lens [employer] Lens Iol PosteriorBiconvex Optic Single Piece Envista 6.0x12.5 +18.0d Hydrophobic Acrylic [id number] [employer] Right 1 Implanted ANESTHESIA: MAC with [...] None CONDITION ON DISCHARGE FROM OPERATING ROOM:stable UREMENT SPECIALIST * Perioperative Nursing Note - Fabi Mathews RN - 06/14/2022 9:18 AM MEASUREMENT SPECIALIST Intraocular lens implant ordered and verified per surgeon prior to implantation UREMENT SPECIALIST * Pre-Procedure Instructions - Griselda Bang NP - 05/31/2022 8:20 AM CST Center for Preoperative Assessment and Planning CPAP Clinic Location: [facility] The night before your surgery: * Do [...] going to be admitted after surgery at [facility], COVID testing may be performed on the day of surgery, even if you are up to date on your COVID-19 vaccine. * If having surgery at [facility], you may want to bring a credit card if you want to use our Mobile Pharmacy for your discharge medications. Mobile pharmacy is not available at [facility], [facility], or the [facility]. Outpatient Surgery: * You must have [...] with COVID-19. You test positive for COVID-19. UREMENT SPECIALIST * Perioperative Nursing Note - Katie Nicolas RN - 05/30/2022 2:00 PM MEASUREMENT SPECIALIST Center for Preoperative Assessment and Planning Perioperative Nursing Note Telephone Preoperative Evaluation ([facility]) - TELEPHONE ONLY, NO PHYSICAL EXAM [...] takingdifferently: Take 88 mcg by mouth early childhood teacher assistant before breakfast) 90 tablet 3 metFORMIN (GLUCOPHAGE) [...] Family members Assistance Needed: pt will have lunch truck driver day of surgery Patient expects to be discharged to:: Private residence EVENT SPECIALIST NO ADDITIONAL COMMENTS/ FOLLOW UP UREMENT SPECIALIST * Pre-Procedure Instructions - Katie Nicolas RN - 05/30/2022 1:57 PM MEASUREMENT SPECIALIST CENTER FOR PREOPERATIVE ASSESSMENT AND PLANNING [...] your insurance card, a photo ID (example: Drilling Machine Operator's License) and a method of payment [...] If you are having surgery at [facility], please arrive on the day of surgery [...] questions, please call the CPAP Staff at [phone], Saturday-Saturday 8am-4:30pm. All patients should read the below section: All visitors/patients are being asked to wear a clean face mask when entering the hospital. COVID 19 Updates & Visitor Policy: Please access [email or web address] for the most updated information. Information on [facility]: Please view [email or web address] (Patient & Visitor Information) for additional details regarding Advanced Directive forms, AWARE, directions, parking information, lodging, Internet access, dining and more. Information on [facility] or [facility] ([facility]): Please view [email or web address] (Patient and Visitor Information) for parking/directions and more. For MyChart information, to activate account or password recovery, please go to [email or web address] or call [phone] (toll-free: [phone]). Information for Suicide Prevention: National Suicide Prevention Lifeline (2-684- 404-DZQJ (9606)). Surgery Times: For patients having surgery @ [facility], [facility] or [facility] ([facility]), if your surgeon's office has not notified you of your surgery time by NOON THE BUSINESS DAY BEFORE your surgery, please call [phone] and ask for your surgeon's office Dr Ramos. For patients having surgery @ [facility], if your surgeon's office has not notified you of your surgery time by NOON THE BUSINESS DAY BEFORE your surgery, please call the surgery center [phone]. UREMENT SPECIALIST documented in this encounter Plan of Treatment Not on file documented as of this encounter Procedures Procedure Name Priority Date/Time Associated Diagnosis Comments POCT GLUCOSE DEVICE Routine 06/14/2022 9 :46 AM MEASUREMENT SPECIALIST GONIOTOMY 06/14/2022 9:16 AM MEASUREMENT SPECIALIST Nuclear sclerotic cataract of both eyes Primary open angle glaucoma of both eyes, moderate stage EXTRACTION CATARACT - PHACOEMULSIFICATION AND LENS IMPLANT 06/14/2022 9:16 AM MEASUREMENT SPECIALIST Nuclear sclerotic cataract of both eyes Primary open angle glaucoma of both eyes, moderate stage POCT GLUCOSE DEVICE Routine 06/14/2022 9 :01 AM MEASUREMENT SPECIALIST documented in this encounter Results * POCT glucose (06/14/2022 9:46 AM MEASUREMENT SPECIALIST) Glucose, POC 86 70 - 199 mg/dL [facility] Blood 06/14/2022 9:46 AM MEASUREMENT SPECIALIST 06/14/2022 9:46 AM MEASUREMENT SPECIALIST Makayla Ramos MD LAB POCT ORDERABLES - DEVICE Final Result Performing Organization Address [facility]/ZIP Co de Phone Number [facility] [place] [address] * POCT glucose (06/14/2022 9:01 AM MEASUREMENT SPECIALIST) Glucose, POC 84 70 - 199 mg/dL [facility] Blood 06/14/2022 9:01 AM MEASUREMENT SPECIALIST 06/14/2022 9:01 AM MEASUREMENT SPECIALIST Makayla Ramos MD LAB POCT ORDERABLES - DEVICE Final Result Performing Organization Address City/[facility]/ZIP Co de Phone Number [facility] [place] [place] [address] documented in this encounter Visit Diagnoses Diagnosis [...] During Ocular Surgery Given 06/14/2022 9:03 AM MEASUREMENT SPECIALIST 0.3 mL Given 06/14/2022 8:48 AM MEASUREMENT SPECIALIST 0.3 mL Lactated Ringer's (LR) infusion 30 mL/hr, intravenous, Continuous, Starting on Dilma 06/14/22 at 0900, Pre-Op Rate/Dose Verify 06/14/2022 9:17 AM MEASUREMENT SPECIALIST 30 m L/hr New Bag 06/14/2022 8:48 AM MEASUREMENT SPECIALIST 30 mL/hr 30 mL/hr prochlorperazine (COMPAZINE) injection 5 mg 5 mg, intravenous, Administer over 2 Minutes, Once as needed, nausea, vomiting, Starting on Dilma 06/14/22 at 0946, For 1 dose, Phase I, If nausea/vomiting not relieved by ondansetron within 30 minutes or if ondansetron has been given within the last 6 hours. Given 06/14/2022 9:50 AM MEASUREMENT SPECIALIST 5 mg documented in this encounter Discontinued [...] Recently Administered Medications Times are shown in MEASUREMENT SPECIALIST. Scheduled Medication Order 06/12/2022 06/13/2022 06/14/2022 [...] 06/14/2022 documented in this encounter Care Teams Drop Wire Builder Relationship Specialty Start Date End Date Elpidio Serrato MD PCP - General Internal Medicine 06/09/18 documented as of this encounter
--- OUTSIDE RECORDS SUMMARY | 2024-04-29 21:21 | XMS_ITS | Encounter Summary ---
Author Organization [facility] Healthcare Address [address] [place] [address] Care Team Providers Care Sheet Layer Name Role Phone Elpidio Serrato MD Primary Care Provider [phone] Encounter Details Date Type Department Care Team (Late st Contact Info) Description 01/13/2021 11:15 AM CDT Lab [facility] Advanced Medicine [facility] ([facility]) [address] [place] [phone] Merna Bell MD [address] [facility] [address], [place] [id number] Vitamin D deficiency; 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, with long-term current use of insulin, unspecified laterality (HCC); Mixed hyperlipidemia; Acquired hypothyroidism Discharge Disposition: Discharge to home or self care Social History Tobacco Use Types Packs/Day Years Used Date Smoking Tobacco: Never Smokeless Tobacco: Never Comments Unknown Sex and Gender Information Value Date Recorded Sex Assigned at Not on file Legal Sex Female 3:59 AM HEAD OF SALES PROMOTION Gender Identity Female 05/13/2021 4:21 PM HEAD OF SALES PROMOTION Sexual Orientation Not on file documented as of this encounter Discharge Disposition Disposition Code Departure Means Destination Discharge to home or self care documented in this encounter Plan of Treatment Not on file documented as of this encounter Procedures Procedure Name Priority Date/Time Associated Diagnosis Comments EGFR Routine 01/13/2021 11:00 AM CDT 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, with long-term current use of insulin, unspecified laterality (HCC) THYROID FUNCTION CASCADE Routine 01/13/2021 11:00 AM CDT Acquired hypothyroidism VITAMIN D 25 HYDROXY Routine 01/13/2021 11:00 AM CDT Vitamin D deficiency PTH Routine 01/13/2021 11:00 AM CDT Vitamin D deficiency HEMOGLOBIN A1C Routine 01/13/2021 11:00 AM CDT 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, with long-term current use of insulin, unspecified laterality (HCC) RENAL FUNCTION PANEL Routine 01/13/2021 11:00 AM CDT 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 60 - 89 mL/min/1.73m2 Mildly to moderately decreased ?45 - 59 mL/min/1.73m2 Moderately to severely decreased ??30 - 44 mL/min/1.73m2 Severely decreased ?15 - 29 mL/min/1.73m2 Kidney Failure ?< 15 ??mL/min/1.73m2 *Relative to young adult level Estimated glomerular filtration rate is determined by the CKD-EPI equation recommended by the National Kidney Foundation (KDIGO 2012 Clinical Practice Guideline for the Evaluation and Management of Chronic Kidney Disease. Kidney Intnl Suppl May 2012;3:1). The CKD-EPI equation should not be used for patients with unstable renal function and has not been validated in children and those over 70. Current interpretive data was last reviewed 2020 Blood 01/13/2021 11:0 0 AM CDT 01/13/2021 11:41 AM CDT Merna Bell MD LAB BLOOD ORDERABLES Final Re sult Performing Organization Address City/[facility]/ZIP Co de Phone Number [facility] [place] [place] [address] * TSH reflex to free T4 (01/13/2021 11:00 AM CDT) TSH 1.15 0.30 - 4.20 mcIUnit/mL [facility] Blood 01/13/2021 11:0 0 AM CDT 01/13/2021 11:35 AM CDT Merna Bell MD LAB BLOOD ORDERABLES Final Re sult Performing Organization Address [facility] Co de Phone Number [facility] [place] [address] * (ABNORMAL) Hemoglobin A1c (01/13/2021 11:00 AM CDT) Hgb A1C 7.2(H) 4.0 - 5.6 % [facility] Estimated Average Glucose 160 mg/dL [facility] Comment: The ADA recommends reporting [...] MD LAB BLOOD ORDERABLES Final Re sult [facility] Department [place] [address] * (ABNORMAL) Lipid panel (01/13/2021 11:00 AM CDT) Cholesterol 178 30 - 199 mg/dL [facility] Comment: Interpretive Data Ages < [...] revised on 2017. Triglycerides 213(H) <=149 mg/dL [facility] Comment: Interpretive Data Ages < or = [...] on 2017. HDL 44 >=40 mg/dL [facility] Comment: Interpretive Data Ages < [...] on 2017. LDL, calculated 91 <=129 mg/dL [facility] Comment: Interpretive Data Ages < or = [...] on 2017. Non-HDL Cholesterol 134 mg/dL [facility] Comment: Interpretive Data Ages < [...] last revised on 2017. Chol/HDL ratio 4 [facility] Blood 01/13/2021 11:0 0 AM CDT 01/13/2021 11:35 AM CDT Merna Bell MD LAB BLOOD ORDERABLES Final Re sult Performing Organization Address [facility] de Phone Number [facility] Department of [employer] [address] * (ABNORMAL) PTH (01/13/2021 11:00 AM CDT) PTH 69(H) 15 - 65 pg/mL [facility] Blood 01/13/2021 11:0 0 AM CDT 01/13/2021 11:35 AM CDT Merna Bell MD LAB BLOOD ORDERABLES Final Re sult Performing Organization Address [facility] de Phone Number [facility] [place] [address] * (ABNORMAL) Renal function panel (01/13/2021 11:00 AM CDT) Sodium 140 135 - 145 mmol/L [facility] Potassium, pl 4.7 3.3 - 4.9 mmol/L [facility] Chloride 108 97 - 110 mmol/L [facility] CO2 24 22 - 32 mmol/L [facility] Anion gap 8 2 - 15 mmol/L [facility] BUN 39(H) 8 - 25 mg/dL [facility] Creatinine 1.10 0.60 - 1.10 mg/dL [facility] Glucose 143 70 - 199 mg/dL [facility] Comment: Interpretive Data Fasting glucose [...] 2017. Calcium 9.6 8.5 - 10.3 mg/dL [facility] Phosphorus, pl 3.8 2.3 - 4.5 mg/dL [facility] Albumin 4.2 3.5 - 5.0 g/dL [facility] Blood 01/13/2021 11:0 0 AM CDT 01/13/2021 11:35 AM CDT Merna Bell MD LAB BLOOD ORDERABLES Final Re sult Performing Organization Address City/[facility]/ZIP Co de Phone Number [facility] Department [place] [address] * Vitamin D 25 hydroxy (01/13/2021 11:00 AM CDT) Vitamin D 25-OH 40 30 - 80 ng/mL [facility] Blood 01/13/2021 11:0 0 AM CDT 01/13/2021 11:35 AM CDT Merna Bell MD LAB BLOOD ORDERABLES Final Re sult [facility] [place] [address] documented in this encounter Visit Diagnoses Diagnosis Vitamin D deficiency 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
--- OUTSIDE RECORDS SUMMARY | 2024-04-29 21:21 | XMS_ITS | Encounter Summary ---
Author Organization [facility] Address [address] [place] [address] Phone Care Team Providers Care Family Centered Specialist Name Role Phone Elpidio Serrato MD Primary Care Provider [phone] Encounter Details Date Type Department Care Team (Latest Contact Info) Description 07/24/2021 9:00 AM CDT Telemedicine [facility] Endocrinology Metabolism and Lipid [address] [facility] 13th [place] [address] [place] [address] Merna Bell MD [address] [facility] [address] [place] [address] 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, with long-term current use of insulin, unspecified laterality (HCC) (Primary Dx); Mixed hyperlipidemia; Acquired hypothyroidism Social History Tobacco Use Types Packs/Day Years Used Date Smoking Tobacco: Never Smokeless Tobacco: Never Comments Unknown Sex and Gender Information Value Date Recorded Sex Assigned at Not on file Legal Sex Female 3:59 AM METALS SALES REPRESENTATIVE Gender Identity Female 05/13/2021 4:21 PM METALS SALES REPRESENTATIVE Sexual Orientation Not on file documented as of this encounter Progress Notes * Merna Bell MD - 07/24/2021 9:00 AM CDT This was a telemedicine visit with Isabelle Lutz alone which took place via Telephone No Internet/Computer. During the visit, I was located at home and the patient was located at home in the state of [place]. The patient visit started at 0915 and [...] a telephone or video visit [facility] emergencywas explained to them. After being given [...] dose of levothyroxine. Type 2 diabetes mellitus ([facility]) Diabetes control is doing well according to the patient. Will recheck A1c, and I have asked pt to download the Ammado heather and Clarity heather so that telemedicine [...] LDL-C. Mikie SS et al. VIOLA. 2013;310(19): 1579-2532 (http://education.[employer]/faq/SUG607) Chol/HDL ratio 5.2(H) <5.0 (calc) [facility] [...] BLOOD ORDERABLES Final Re sult [facility] [address] [place] [address] * TSH reflex to free T4 (10/23/2021 12:00 AM CDT) Pathologist [facility] TSH 2.42 0.40 - 4.50 mIU/L [facility] Blood specimen (specimen) 10/23/2021 10/23/2021 7:57 AM CDT Narrative [facility] - 10/24/2021 3:00 AM CDT FASTING:YES FASTING: YES us Merna Bell MD LAB BLOOD ORDERABLES Final Re sult JOSE C Kelly [address] [facility] [place] [place] [address] * (ABNORMAL) Renal function panel (10/23/2021 12:00 [...] approximately 13% higher for people identified as -Austrian. eGFR NON-AFR. CENTRAL AFRICAN 43(L) > OR = 60 mL/min/1. 73m2 [...] ORDERABLES Final Re sult [facility] [address] [place] [address] * (ABNORMAL) Hemoglobin A1c (10/23/2021 12:00 AM CDT) Hgb A1C 5.9(H) <5.7 % of total Hgb [facility] christ[facility] [place] Comment: For someone without [...] LAB BLOOD ORDERABLES Final Re sult [facility] [address] [place] [address] documented in this encounter Visit Diagnoses Diagnosis [...] documented as of this encounter Care Teams Family Centered Specialist Relationship Specialty Start Date End Date Elpidio Serrato MD PCP - General Internal Medicine 06/09/18 documented as of this encounter
--- OUTSIDE RECORDS SUMMARY | 2024-04-29 21:21 | XMS_ITS | Encounter Summary ---
Author Organization [facility] Address [address] [place] [address] Phone Care Team Providers Care Assembler Convertible Top Name Role Phone Elpidio Serrato MD Primary Care Provider [phone] Reason for Visit * Reason Onset Date Comments orders 11/01/2020 [place] Encounter Details Date Type Department Care Team (Late st Contact Info) Description 11/01/2020 Telephone [facility] Endocrinology Metabolism and Lipid [address] [facility] 13th [place] [address] [place] [address] Princess Hu RMA orders ([place]) Social History Tobacco Use Types Packs/Day Years Used Date Smoking Tobacco: Never Smokeless Tobacco: Never Comments Unknown Sex and Gender Information Value Date Recorded Sex Assigned at Not on file Legal Sex Female 3:59 AM DULSER Gender Identity Female 05/13/2021 4:21 PM DULSER Sexual Orientation Not on file documented as of this encounter Miscellaneous Notes * Telephone Encounter - Princess Hu RMA - 11/01/2020 8:08 AM CDT Images from the original note were not included. Faxed orders to Noemi documented in this encounter Plan of Treatment Not on file documented as of this encounter Visit Diagnoses Not on filedocumented in this encounter Care Teams Assembler Convertible Top Relationship Specialty Start Date End Date Elpidio Serrato MD PCP - General Internal Medicine 06/09/18 documented as of this encounter
--- OUTSIDE RECORDS SUMMARY | 2024-04-29 21:21 | XMS_ITS | Encounter Summary ---
Author Organization [facility] Address [address] [place] [address] Phone Care Team Providers Care Spring Winder Name Role Phone Elpidio Serrato MD Primary Care Provider [phone] Encounter Details Date Type Department Care Team (Late st Contact Info) Description 02/16/2022 Telephone [facility] Ophthalmology [address] [place] [address] Makayla Ramos MD [address] [place], [place] [id number] Social History Tobacco Use Types Packs/Day Years Used Date Smoking Tobacco: Never Smokeless Tobacco: Never Comments Unknown Sex and Gender Information Value Date Recorded Sex Assigned at Not on file Legal Sex Female 3:59 AM LINUX ADMIN ENGINEER Gender Identity Female 05/13/2021 4:21 PM LINUX ADMIN ENGINEER Sexual Orientation Not on file documented [...] on filedocumented in this encounter Care Teams Spring Winder Relationship Specialty Start Date End Date Elpidio Serrato MD PCP - General Internal Medicine 06/09/18 documented as of this encounter
--- OUTSIDE RECORDS SUMMARY | 2024-04-29 21:21 | XMS_ITS | Encounter Summary ---
Author Organization [facility] Address [address] [place] [address] Phone Care Team Providers Care Counselor Dormitory Name Role Phone Elpidio Serrato MD Primary Care Provider [phone] Reason for Referral * Diagnostic Imaging (Routine) - Closed Specialty Diagnoses / Procedures Referred By Constantino alvarado Referred To Contact Diagnoses Primary open angle glaucoma (POAG) of both eyes, moderate stage Procedures [facility] - OU - Both Eyes Makayla Ramos MD [address] [place] [address] Phone: tel: fax: [facility] (All Locations) Referral ID Status Reason Start Date Expiration Date Visits Re quested Visits Authorized [id number] Closed 05/16/2022 06/15/2023 1 1 ING ROOM OPERATOR Encounter Details Date Type Department Care Team (Late st Contact Info) Description 05/16/2022 Orders Only [facility] Ophthalmology [facility] [place] [address] Makayla Ramos MD [address] [place] [address] Nuclear sclerotic cataract of both eyes (Primary Dx); Primary open angle glaucoma (POAG) of both eyes, moderate stage Social History Tobacco Use Types Packs/Day Years Used Date Smoking Tobacco: Never Smokeless Tobacco: Never Comments Unknown Sex and Gender Information Value Date Recorded Sex Assigned at Not on file Legal Sex Female 3:59 AM SOAKING ROOM OPERATOR Gender Identity Female 05/13/2021 4:21 PM SOAKING ROOM OPERATOR Sexual Orientation Not on file documented [...] stage documented in this encounter Care Teams Counselor Dormitory Relationship Specialty Start Date End Date Elpidio Serrato MD PCP - General Internal Medicine 06/09/18 documented as of this encounter
--- OUTSIDE RECORDS SUMMARY | 2024-04-29 21:21 | XMS_ITS | Encounter Summary ---
Author Organization [facility] Address [address] [place] [address] Phone Care Team Providers Care Clerk Secretary Name Role Phone Elpidio Serrato MD Primary Care Provider [phone] Encounter Details Date Type Department Care Team (Latest Contact Info) Description 01/24/2021 4:10 PM CDT Office Visit [facility] Endocrinology Metabolism and Lipid [address] 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 [place] APPENDECTOMY Appendectomy - (Added by TW Conv) ??? [place] DELIVERY ONLY Section - in 1972 and 1975 (Added by TW Conv) ??? [place] INCISE FINGER TENDON SHEATH Hand Incision Tendon [...] [facility] and commented on below. Allergies: Pseudoephedrine [...] takes Benicar ?? Type 2 diabetes mellitus ([facility]) Glucoses are excellent and variability [...] type documented in this encounter Care Teams Clerk Secretary Relationship Specialty Start Date End Date lEpidio Serrato MD PCP - General Internal Medicine 06/09/18 documented as of this encounter
--- OUTSIDE RECORDS SUMMARY | 2024-04-29 21:21 | XMS_ITS | Encounter Summary ---
Author Organization [facility] Address [address] [place] [address] Phone Care Team Providers Care Reading Aide Name Role Phone Elpidio Serrato MD Primary Care Provider [phone] Encounter Details Date Type Department Care Team (Latest Contact Info) Description 12/25/2021 9:00 AM CDT Telemedicine [facility] Endocrinology Metabolism and Lipid [address] [facility] 13th [place] [address] [place] [address] Merna Bell MD [address] [facility] [address] [place] [address] Type 2 diabetes mellitus with moderate nonproliferative [...] on file Legal Sex Female 3:59 AM BUS STEWARD Gender Identity Female 05/13/2021 4:21 PM BUS STEWARD Sexual Orientation Not on file documented as of this encounter Progress Notes * Merna Bell MD - 12/25/2021 9:00 AM CDT Images from the original note were not included. This was a telemedicine visit with Isabelle Lutz alone which took place via Telephone No Internet/Computer. During the visit, I was located at home and the patient was located at home in the state [facility]. The patient visit started at 0915 [...] a telephone or video visit during the [facility]-[address] [place] [address] emergencywas explained to them. After being given [...] albuminuria creatinine ratio less than 30 mg/g ([facility]) Current Outpatient Medications: ??? atorvastatin (LIPITOR) 20 [...] LDLDIRECT 102 03/31/2019 Type 2 diabetes mellitus (CMS/[facility]) Glucose control appears to be excellent. 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, with long-term current use of insulin, unspecified laterality ([facility]) RENAL FUNCTION PANEL Routine 06/25/2022 8:40 AM BUS STEWARD Chronic kidney disease (CKD) stage G3b/A1, moderately decreased glomerular filtration rate (GFR) between 30-44 mL/min/1.73 square meter and albuminuria creatinine ratio less than 30 mg/g (HCC) LIPID PANEL Routine 06/25/2022 8:40 AM BUS STEWARD Mixed hyperlipidemia documented in this encounter Results * TSH reflex to free T4 (06/25/2022 8:40 AM BUS STEWARD) Pathologist [facility] TSH 1.69 0.40 - 4.50 mIU/L [facility] Blood specimen (specimen) 06/25/2022 8:40 AM BUS STEWARD 06/25/2022 8:41 AM BUS STEWARD us Merna Bell MD LAB BLOOD ORDERABLES Final Re sult [facility] [address] [place] [address] * PTH (06/25/2022 8:40 AM BUS STEWARD) Pathologist [facility] Parathyroid hormone, intact 71 16 - 77 pg/mL [facility] Comment: Interpretive Guide ?Intact PTH ? Calcium ? ------- Normal Parathyroid ?Normal ? Normal Hypoparathyroidism ?Low or Low Normal ?Low Hyperparathyroidism ?? Primary ?Normal or High ? High ?? Secondary ?High ? Normal or Low ?? Tertiary ? High ? High Non-Parathyroid ?? Hypercalcemia ?Low or Low Normal ?High Blood specimen (specimen) 06/25/2022 8:40 AM BUS STEWARD 06/25/2022 8:41 AM BUS STEWARD us Merna Bell MD LAB BLOOD ORDERABLES Final Re sult [facility] [address] [place] [address] * (ABNORMAL) Renal function panel (06/25/2022 8:40 AM BUS STEWARD) Glucose 95 65 - 99 mg/dL [facility] [...] [facility]a Blood specimen (specimen) 06/25/2022 8:40 AM BUS STEWARD 06/25/2022 8:41 AM BUS STEWARD Merna Bell MD LAB BLOOD ORDERABLES Final Re sult Performing Organization Address City/[facility]/ZIP Co de Phone Number JOSE C [facility] [address] [place] [place] [address] * (ABNORMAL) Lipid panel (06/25/2022 8:40 AM BUS STEWARD) Pathologist [facility] Cholesterol 173 <200 mg/dL [facility] [...] LDL-C. Mikie LOPEZ et al. VIOLA. 2013;310(19): 8427-3587 (http://education.CamSemi/faq/JVD604) Chol/HDL ratio 3.5 <5.0 (calc) [facility] Non-HDL, (LDL+VLDL) 124 <130 mg/dL (calc) [facility] Comment: For patients with diabetes plus 1 major ASCVD risk factor, treating to a non-HDL-C goal of <100 mg/dL (LDL-C of <70 mg/dL) is considered a therapeutic option. Blood specimen (specimen) 06/25/2022 8:40 AM BUS STEWARD 06/25/2022 8:41 AM BUS STEWARD Merna Bell MD LAB BLOOD ORDERABLES Final Re sult JOSE C [facility] [address] [place] [address] * Hemoglobin A1c (06/25/2022 8:40 AM BUS STEWARD) Hgb A1C 5.4 <5.7 % of total Hgb [facility] Comment: For the purpose of screening for the presence of diabetes: <5.7% ? Consistent with the absence of diabetes 5.7-6.4% ?Consistent with increased risk for diabetes ?(prediabetes) > or =6.5% ??Consistent with diabetes This assay result is consistent with a decreased risk of diabetes. Currently, no consensus exists regarding use of hemoglobin A1c for diagnosis of diabetes in children. According to [place] Diabetes Association (ADA) guidelines, hemoglobin A1c <7.0% represents optimal control in non- diabetic patients. Different metrics may apply to specific patient populations. Standards of Medical Care in Diabetes(ADA). ?? Blood specimen (specimen) 06/25/2022 8:40 AM BUS STEWARD 06/25/2022 8:41 AM BUS STEWARD us Merna Bell MD LAB BLOOD ORDERABLES Final Re sult [facility] [address] [place] [address] documented in this encounter Visit Diagnoses Diagnosis [...] 05/30/2022 added in this encounter Care Teams Reading Aide Relationship Specialty Start Date End Date Elpidio Serrato MD PCP - General Internal Medicine 06/09/18 documented as of this encounter
--- OUTSIDE RECORDS SUMMARY | 2024-04-29 21:21 | XMS_ITS | Encounter Summary ---
Author Organization [facility] Address [address] [place] [address] Phone Care Team Providers Care Connie Scratcher Name Role Phone Elpidio Serrato MD Primary Care Provider [phone] Encounter Details Date Type Department Care Team (Late st Contact Info) Description 02/21/2021 Telephone [facility] Scheduling [address] [place] [address] Merna Bell MD [address] [facility] [address] [place] [address] Social History Tobacco Use Types Packs/Day Years Used Date Smoking Tobacco: Never Smokeless Tobacco: Never Comments Unknown Sex and Gender Information Value Date Recorded Sex Assigned at Not on file Legal Sex Female 3:59 AM IMAGE PROCESSING ENGINEER Gender Identity Female 05/13/2021 4:21 PM IMAGE PROCESSING ENGINEER Sexual Orientation Not on file documented as of this encounter Miscellaneous Notes * Telephone Encounter - Mitzi Deleon COA - 02/21/2021 1:14 PM CDT Images from the original note were not included. Arthur: [id number] CeleBREX 200MG capsules Status:Approved FEP PA Effecrtive Dates:01/22/21 to 02/21/22 documented in this encounter Plan of Treatment Not on file documented as of this encounter Visit Diagnoses Not on filedocumented in this encounter Care Teams Connie Scratcher Relationship Specialty Start Date End Date Elpidio Serrato MD PCP - General Internal Medicine 06/09/18 documented as of this encounter
--- OUTSIDE RECORDS SUMMARY | 2024-04-29 21:22 | XMS_ITS | Encounter Summary ---
Author Organization [facility] Address [address] [place] [address] Phone Care Team Providers Care Coremaker Pipe Name Role Phone Elpidio Serrato MD Primary Care Provider [phone] Reason for Visit * Reason Onset Date Comments Sol[place] 01/06/2020 Encounter Details Date Type Department Care Team (Late st Contact Info) Description 01/06/[address] [facility] Endocrinology Metabolism and Lipid [address] [facility] 13th [place] [address] [place] [address] Aide Wolfe CMA [place] Social History Tobacco Use Types Packs/Day Years Used Date Smoking Tobacco: Never Smokeless Tobacco: Never Comments Unknown Sex and Gender Information Value Date Recorded Sex Assigned at Not on file Legal Sex Female 3:59 AM SENIOR PORTFOLIO ANALYST Gender Identity Female 05/13/2021 4:21 PM SENIOR PORTFOLIO ANALYST Sexual Orientation Not on file documented as of this encounter Miscellaneous Notes * Telephone Encounter - Aide Wolfe CMA - 01/06/2020 4:16 PM CDT SWO for medical supplies faxed to [phone] documented in this encounter Plan of Treatment Not on file documented as of this encounter Visit Diagnoses Not on filedocumented in this encounter Care Teams Coremaker Pipe Relationship Specialty Start Date End Date Elpidio Serrato MD PCP - General Internal Medicine 06/09/18 documented as of this encounter
--- OUTSIDE RECORDS SUMMARY | 2024-04-29 21:22 | XMS_ITS | Encounter Summary ---
Author Organization [facility] Healthcare Address [address] [place] [address] Care Team Providers Care Roadway Engineer Name Role Phone Elpidio Srerato MD Primary Care Provider [phone] Encounter Details Date Type Department Care Team (Late st Contact Info) Description 01/25/2020 11:00 AM CDT Lab [facility] Advanced Medicine [facility] Advanced Medicine ([facility]) [address] [place] [phone] [place] [address] [place] [address] [address], [place] [id number] Type 2 diabetes mellitus (CMS/HCC); Acquired hypothyroidism; Mixed hyperlipidemia Discharge Disposition: Discharge to home or self care Social History Tobacco Use Types Packs/Day Years Used Date Smoking Tobacco: Never Smokeless Tobacco: Never Comments Unknown Sex and Gender Information Value Date Recorded Sex Assigned at Not on file Legal Sex Female 3:59 AM REGIONAL FACILITIES SPECIALIST Gender Identity Female 05/13/2021 4:21 PM REGIONAL FACILITIES SPECIALIST Sexual Orientation Not on file [...] 9:22 AM CDT Type 2 diabetes mellitus ([facility]/HCC) ALBUMIN CREATININE RATIO, URINE Routine 01/25/2020 9:22 AM CDT Type 2 diabetes mellitus ([facility]/HCC) HEMOGLOBIN A1C Routine 01/25/2020 9:22 AM CDT Type 2 diabetes mellitus ([facility]/HCC) LIPID PANEL Routine 01/25/2020 9:22 AM CDT Mixed hyperlipidemia COMPREHENSIVE METABOLIC PANEL Routine 01/25/2020 9:22 AM CDT Type 2 diabetes mellitus ([facility]/HCC) documented in this encounter Results * Differential, auto (01/25/2020 9:22 AM CDT) Neutrophil abs 4.7 1.7 - 6.5 K/cumm [facility] Imm gran abs 0.0 0.0 - 0.1 K/cumm [facility] Lymphocyte abs 1.8 0.8 - 3.3 K/cumm [facility] Monocyte abs 0.6 0.2 - 0.8 K/cumm [facility] Eosinophil abs 0.1 0.0 - 0.5 K/cumm [facility] Basophil abs 0.0 0.0 - 0.1 K/cumm [facility] Neutrophil pct 64.3 % [facility] Comment: Interpretive Data Percent cell count reference ranges are not reported, since discordance with absolute values may lead to misinterpretation of CBC data. Current Interpretive Data was last revised on 2017. Imm gran pct 0.3 % [facility] Comment: Interpretive Data Percent cell count reference ranges are not reported, since discordance with absolute values may lead to misinterpretation of CBC data. Current Interpretive Data was last revised on 2017. Lymphocyte pct 25.5 % [facility] Comment: Interpretive Data Percent cell count reference ranges are not reported, since discordance with absolute values may lead to misinterpretation of CBC data. Current Interpretive Data was last revised on 2017. Monocyte pct 7.8 % [facility] Comment: Interpretive Data Percent cell count reference ranges are not reported, since discordance with absolute values may lead to misinterpretation of CBC data. Current Interpretive Data was last revised on 2017. Eosinophil pct 1.5 % [facility] Comment: Interpretive Data Percent cell count reference ranges are not reported, since discordance with absolute values may lead to misinterpretation of CBC data. Current Interpretive Data was last revised on 2017. Basophil pct 0.6 % [facility] Comment: Interpretive Data Percent cell count reference ranges are not reported, since discordance with absolute values may lead to misinterpretation of CBC data. Current Interpretive Data was last revised on 2017. Blood specimen (specimen) 01/25/2020 9:22 AM CDT 01/25/2020 9:46 AM CDT us Merna Bell MD LAB BLOOD ORDERABLES Final Re sult [facility] Department [place] [address] * CBC with auto differential (01/25/2020 9:22 AM CDT) WBC 7.2 3.8 - 9.9 K/cumm [facility] Hgb 12.1 11.9 - 15.5 g/dL [facility] Hct 37.2 35.6 - 45.5 % [facility] Plt 206 150 - 400 K/cumm [facility] MPV 10.8 9.1 - 12.3 fL [facility] RBC 4.07 3.90 - 5.20 M/cumm [facility] MCV 91.4 81.3 - 96.4 fL [facility] MCH 29.7 27.1 - 33.3 pg [facility] MCHC 32.5 32.3 - 35.7 g/dL [facility] RDW CV 12.6 11.1 - 14.9 % [facility] RDW SD 42.0 35.7 - 48.1 fL [facility] NRBC abs 0.00 0.00 - 0.01 K/cumm [facility] Blood specimen (specimen) 01/25/2020 9:22 AM CDT 01/25/2020 9:46 AM CDT us Merna Bell MD LAB BLOOD ORDERABLES Final Re sult [facility] Department [place] [address] * (ABNORMAL) Lipid panel (01/25/2020 9:22 AM CDT) Cholesterol 171 30 - 199 mg/dL [facility] Comment: Interpretive Data Ages < or [...] revised on 2017. Triglycerides 167(H) <=149 mg/dL [facility] Comment: Interpretive Data Ages < or [...] on 2017. HDL 48 >=40 mg/dL [facility] Comment: Interpretive Data Ages < or [...] 2017. LDL, calculated 90 <=129 mg/dL [facility] Comment: Interpretive Data Ages < or [...] on 2017. Non-HDL Cholesterol 123 mg/dL [facility] Comment: Interpretive Data Ages < or [...] last revised on 2017. Chol/HDL ratio 4 [facility] Blood specimen (specimen) 01/25/2020 9:22 AM CDT 01/25/2020 9:46 AM CDT Merna Bell MD LAB BLOOD ORDERABLES Final Re sult Performing Organization Address [facility] de Phone Number [facility] [place] [address] * (ABNORMAL) Hemoglobin A1c (01/25/2020 9:22 AM CDT) Hgb A1C 7.2(H) 4.0 - 5.6 % [facility] Estimated Average Glucose 160 mg/dL [facility] Comment: The ADA recommends reporting an estimated Average Glucose (eAG) with all Hemoglobin A1c results using the equation derived from a study of 507 normal and diabetic adults. ??Minority populations were underrepresented and children were not included. ?? (Diabetes Care 31:2967-9196, 2008). ??The eAG is not equivalent to a fasting glucose. Blood specimen (specimen) 01/25/2020 9:22 AM CDT 01/25/2020 9:46 AM CDT Merna Bell MD LAB BLOOD ORDERABLES Final Re sult Performing Organization Address [facility] de Phone Number [facility] [place] [address] * TSH reflex to free T4 (01/25/2020 9:22 AM CDT) Pathologist [facility] TSH 1.98 0.30 - 4.20 mcIUnit/mL [facility] Blood specimen (specimen) 01/25/2020 9:22 AM CDT 01/25/2020 9:46 AM CDT Merna Bell MD LAB BLOOD ORDERABLES Final Re sult Performing Organization Address [facility] de Phone Number [facility] Department [place] [address] * Albumin Creatinine Ratio, Urine (01/25/2020 9:22 AM CDT) [facility] Albumin Ur <12.0 mg/L [facility] Comment: Interpretive Data No reference range established. Current interpretive data was last revised 2018. Creatinine Ur 107.9 mg/dL [facility] Comment: Interpretive Data No reference range established. Current interpretive data was last revised 2018. Albumin Creatinine Ratio, Ur <11 1 - 29 mg/g [facility] Urine 01/25/2020 9:22 AM CDT 01/25/2020 9:46 AM CDT Merna Bell MD LAB URINE ORDERABLES Final Re sult Performing Organization Address [facility] de Phone Number [facility] Department [place] [address] * (ABNORMAL) Comprehensive metabolic panel (01/25/2020 9:22 AM CDT) [facility] Sodium 142 135 - 145 mmol/L [facility] Potassium, pl 5.8(H) 3.3 - 4.9 mmol/L [facility] Comment:Hemolyzed; Potassium value may be falsely elevated by as much as 0.3-0.5 mmol/L. Suggest redraw and reanalysis. Chloride 110 97 - 110 mmol/L [facility] CO2 23 22 - 32 mmol/L [facility] Anion gap 9 2 - 15 mmol/L [facility] BUN 33(H) 8 - 25 mg/dL [facility] Creatinine 1.09 0.60 - 1.10 mg/dL [facility] Glucose 163 70 - 199 mg/dL [facility] Comment: Interpretive Data Fasting glucose >/= [...] 2017. Calcium 9.4 8.5 - 10.3 mg/dL [facility] Bilirubin, total 0.3 0.1 - 1.2 mg/dL [facility] Protein, pl 7.1 6.5 - 8.5 g/dL [facility] Albumin 4.2 3.5 - 5.0 g/dL [facility] Alk phos 73 40 - 130 Units/L [facility] ALT 17 7 - 45 Units/L [facility] AST 26 10 - 45 Units/L [facility] Comment:Hemolyzed; result ma y be falsely elevated Blood specimen (specimen) 01/25/2020 9:22 AM CDT 01/25/2020 9:46 AM CDT us Merna Bell MD LAB BLOOD ORDERABLES Final Re sult [facility] Department [place] [address] documented in this encounter Visit Diagnoses Diagnosis Type 2 diabetes mellitus (HCC) Acquired hypothyroidism Unspecified hypothyroidism Mixed hyperlipidemia documented in this encounter Care Teams Roadway Engineer Relationship Specialty Start Date End Date Elpidio Serrato MD PCP - General Internal Medicine 1/28/19 documented as of this encounter
--- OUTSIDE RECORDS SUMMARY | 2024-04-29 21:22 | XMS_ITS | Encounter Summary ---
Author Organization [facility] Address [address] [place] [address] Phone Care Team Providers Care Sales Agent Insurance Name Role Phone Elpidio Serrato MD Primary Care Provider [phone] Reason for Visit * Reason Onset Date Comments Noemi 12/31/2019 Encounter Details Date Type Department Care Team (Late st Contact Info) Description 12/31/2019 Telephone [facility] Endocrinology Metabolism and Lipid [address] [facility] Advanced Medicine [address]th [place] [address] [place] [address] Aide Wolfe CMA [place] Social History Tobacco Use Types Packs/Day Years Used Date Smoking Tobacco: Never Smokeless Tobacco: Never Comments Unknown Sex and Gender Information Value Date Recorded Sex Assigned at Not on file Legal Sex Female 3:59 AM ASSEMBLY SUPERVISOR Gender Identity Female 05/13/2021 4:21 PM ASSEMBLY SUPERVISOR Sexual Orientation Not on file documented as of this encounter Miscellaneous Notes * Telephone Encounter - Aide Wolfe CMA - 12/31/2019 2:46 PM CDT DWO for medical supplies sent to Noemi at [phone]. documented in this encounter Plan of Treatment Not on file documented as of this encounter Visit Diagnoses Not on filedocumented in this encounter Care Teams Sales Agent Insurance Relationship Specialty Start Date End Date Elpidio Serrato MD PCP - General Internal Medicine 06/09/18 documented as of this encounter
--- OUTSIDE RECORDS SUMMARY | 2024-04-29 21:22 | XMS_ITS | Encounter Summary ---
Author Organization [facility] Address [address] [place] [address] Phone Care Team Providers Care Sewing Machine Repairer Name Role Phone Elpidio Serrato MD Primary Care Provider [phone] Encounter Details Date Type Department Care Team (Late st Contact Info) Description 01/13/[address] [facility] Endocrinology Metabolism and Lipid [address] [facility] Advanced Medicine 13th [place] [address] [place] [address] Merna Bell MD [address] [facility] [address] [place] [address] Type 2 diabetes mellitus (CMS/HCC) (Primary Dx); Acquired hypothyroidism; Mixed hyperlipidemia Social History Tobacco Use Types Packs/Day Years Used Date Smoking Tobacco: Never Smokeless Tobacco: Never Comments Unknown Sex and Gender Information Value Date Recorded Sex Assigned at Not on file Legal Sex Female 3:59 AM LOG PEELER Gender Identity Female 05/13/2021 4:21 PM LOG PEELER Sexual Orientation Not on file documented as of this encounter Plan of Treatment Not on file documented as of this encounter Results * (ABNORMAL) Comprehensive metabolic panel (01/25/2020 9:22 AM CDT) Sodium 142 135 - 145 mmol/L [facility] Potassium, pl 5.8(H) 3.3 - 4.9 mmol/L [facility] Comment:Hemolyzed; Potassium value may be falsely elevated by as much as 0.3-0.5 mmol/L. Suggest redraw and reanalysis. Chloride 110 97 - 110 mmol/L [facility] CO2 23 22 - 32 mmol/L [facility] Anion gap 9 2 - 15 mmol/L [facility] BUN 33(H) 8 - 25 mg/dL [facility] Creatinine 1.09 0.60 - 1.10 mg/dL [facility] Glucose 163 70 - 199 mg/dL [facility] Comment: Interpretive Data Fasting glucose >/= [...] 2017. Calcium 9.4 8.5 - 10.3 mg/dL [facility] Bilirubin, total 0.3 0.1 - 1.2 mg/dL [facility] Protein, pl 7.1 6.5 - 8.5 g/dL [facility] Albumin 4.2 3.5 - 5.0 g/dL [facility] Alk phos 73 40 - 130 Units/L [facility] ALT 17 7 - 45 Units/L [facility] AST 26 10 - 45 Units/L [facility] Comment:Hemolyzed; result ma y be falsely elevated Blood specimen (specimen) 01/25/2020 9:22 AM CDT 01/25/2020 9:46 AM CDT us Merna Bell MD LAB BLOOD ORDERABLES Final Re sult [facility] Department [place] [address] * Albumin Creatinine Ratio, Urine (01/25/2020 9:22 AM CDT) Albumin Ur <12.0 mg/L [facility] Comment: Interpretive Data No reference range established. Current interpretive data was last revised 2018. Creatinine Ur 107.9 mg/dL [facility] Comment: Interpretive Data No reference range established. Current interpretive data was last revised 2018. Albumin Creatinine Ratio, Ur <11 1 - 29 mg/g [facility] Urine 01/25/2020 9:22 AM CDT 01/25/2020 9:46 AM CDT Merna Bell MD LAB URINE ORDERABLES Final Re sult Performing Organization Address [facility]/ZIP Co de Phone Number [facility] [place] [address] * TSH reflex to free T4 (01/25/2020 9:22 AM CDT) [facility] TSH 1.98 0.30 - 4.20 mcIUnit/mL [facility] Blood specimen (specimen) 01/25/2020 9:22 AM CDT 01/25/2020 9:46 AM CDT Merna Bell MD LAB BLOOD ORDERABLES Final Re sult Performing Organization Address [facility] de Phone Number [facility] [place] [address] * (ABNORMAL) Hemoglobin A1c (01/25/2020 9:22 AM CDT) [facility] Hgb A1C 7.2(H) 4.0 - 5.6 % [facility] Estimated Average Glucose 160 mg/dL [facility] Comment: The ADA recommends reporting an estimated Average Glucose (eAG) with all Hemoglobin A1c results using the equation derived from a study of 507 normal and diabetic adults. ??Minority populations were underrepresented and children were not included. ?? (Diabetes Care 31:3498-4230, 2008). ??The eAG is not equivalent to a fasting glucose. Blood specimen (specimen) 01/25/2020 9:22 AM CDT 01/25/2020 9:46 AM CDT us Merna Bell MD LAB BLOOD ORDERABLES Final Re sult [facility] [place] [address] * (ABNORMAL) Lipid panel (01/25/2020 9:22 AM CDT) Cholesterol 171 30 - 199 mg/dL [facility] Comment: Interpretive Data Ages [...] on 2017. Triglycerides 167(H) <=149 mg/dL [facility] Comment: Interpretive Data Ages [...] revised on 2017. HDL 48 >=40 mg/dL [facility] Comment: Interpretive Data Ages < or [...] on 2017. LDL, calculated 90 <=129 mg/dL [facility] Comment: Interpretive Data Ages < or [...] on 2017. Non-HDL Cholesterol 123 mg/dL [facility] Comment: Interpretive Data Ages [...] last revised on 2017. Chol/HDL ratio 4 [facility] Blood specimen (specimen) 01/25/2020 9:22 AM CDT 01/25/2020 9:46 AM CDT us Merna Bell MD LAB BLOOD ORDERABLES Final Re sult [facility] [place] [address] * CBC with auto differential (01/25/2020 9:22 AM CDT) WBC 7.2 3.8 - 9.9 K/cumm [facility] Hgb 12.1 11.9 - 15.5 g/dL [facility] Hct 37.2 35.6 - 45.5 % [facility] Plt 206 150 - 400 K/cumm [facility] MPV 10.8 9.1 - 12.3 fL [facility] RBC 4.07 3.90 - 5.20 M/cumm [facility] MCV 91.4 81.3 - 96.4 fL [facility] MCH 29.7 27.1 - 33.3 pg [facility] MCHC 32.5 32.3 - 35.7 g/dL [facility] RDW CV 12.6 11.1 - 14.9 % [facility] RDW SD 42.0 35.7 - 48.1 fL [facility] NRBC abs 0.00 0.00 - 0.01 K/cumm [facility] Blood specimen (specimen) 01/25/2020 9:22 AM CDT 01/25/2020 9:46 AM CDT us Merna Bell MD LAB BLOOD ORDERABLES Final Re sult Performing Organization Address City/State/[facility] Co de Phone Number [facility] [place] [address] documented in this encounter Visit Diagnoses Diagnosis Type 2 diabetes mellitus (HCC)- Primary Acquired hypothyroidism Unspecified hypothyroidism Mixed hyperlipidemia documented in this encounter Care Teams Sewing Machine Repairer Relationship Specialty Start Date End Date Elpidio Serrato MD PCP - General Internal Medicine 06/09/18 documented as of this encounter
--- OUTSIDE RECORDS SUMMARY | 2024-04-29 21:22 | XMS_ITS | Encounter Summary ---
Author Organization [facility] Address [address] [place] [address] Phone Care Team Providers Care Summer Internship Name Role Phone Elpidio Serrato MD Primary Care Provider [phone] Encounter Details Date Type Department Care Team (Late st Contact Info) Description 07/03/2019 8:15 AM RADIAL DRILL PRESS OPERATOR Office Visit [facility] Ophthalmology [address] [place] [address] [place] [id number] Niranjan Thomas MD [address] [facility] [place] [address] [place], [place] [id number] Primary open angle glaucoma (POAG) of both eyes, moderate stage (Primary Dx); Nuclear sclerotic cataract of both eyes Social History Tobacco Use Types Packs/Day Years Used Date Smoking Tobacco: Never Smokeless Tobacco: Never Comments Unknown Sex and Gender Information Value Date Recorded Sex Assigned at Not on file Legal Sex Female 3:59 AM RADIAL DRILL PRESS OPERATOR Gender Identity Female 05/13/2021 4:21 PM RADIAL DRILL PRESS OPERATOR Sexual Orientation Not on file documented as of this encounter Patient Instructions * Patient Instructions* Niranjan Thomas MD - 07/03/2019 8:15 AM RADIAL DRILL PRESS OPERATOR AL DRILL PRESS OPERATOR documented in this encounter Progress Notes * [...] IOP applanation and HANS, for IOP check. AL DRILL PRESS OPERATOR documented in this encounter Miscellaneous Notes * Assessment & Plan Note - Sandy Aguirre - 07/02/2019 11:12 AM CSTAssociated Problem(s): Pseudophakia of both eyes NVS. Continue to Monitor. I am scribing in the presence of Dr. Thomas on 07/03/2019, HALLEY Ramos. I have examined the patient and agree with the resident/fellow's findings and plan as documented. Niranjan Thomas MD AL DRILL PRESS OPERATOR AL DRILL PRESS OPERATOR AL DRILL PRESS OPERATOR * Assessment & Plan Note - Sandy [...] Drops: Combigan BID OU Latanoprost QHS OD AL DRILL PRESS OPERATOR AL DRILL PRESS OPERATOR AL DRILL PRESS OPERATOR documented in this encounter Plan of Treatment [...] PPA C/D Ratio 0.85 0.85-9 Care Teams Summer Internship Relationship Specialty Start Date End Date Elpidio Serrato MD PCP - General Internal Medicine 06/09/18 documented as of this encounter
--- OUTSIDE RECORDS SUMMARY | 2024-04-29 21:22 | XMS_ITS | Encounter Summary ---
Author Organization [facility] Address [address] [place] [address] Phone Care Team Providers Care Solutions Engineer Name Role Phone Elpidio Serrato MD Primary Care Provider [phone] Reason for Visit * Reason Onset Date Comments Med Refill 02/12/2020 jardiance and oz empic Encounter Details Date Type Department Care Team (Late st Contact Info) Description 02/12/2020 Telephone [facility] Endocrinology Metabolism and Lipid [address] Advanced Medicine 13th [place] [address] [place] [address] Malika Carter RN Med Refill (jardiance and ozempic) Social History Tobacco Use Types Packs/Day Years Used Date Smoking Tobacco: Never Smokeless Tobacco: Never Comments Unknown Sex and Gender Information Value Date Recorded Sex Assigned at Not on file Legal Sex Female 3:59 AM VAULT PERSON Gender Identity Female 05/13/2021 4:21 PM VAULT PERSON Sexual Orientation Not on file documented as [...] is requesting letter to be sent to [facility] regarding necessity for Celebrex. [phone] (fax) documented in this encounter Plan of [...] documented as of this encounter Care Teams Solutions Engineer Relationship Specialty Start Date End Date Elpidio Serrato MD PCP - General Internal Medicine 06/09/18 documented as of this encounter
--- OUTSIDE RECORDS SUMMARY | 2024-04-29 21:22 | XMS_ITS | Encounter Summary ---
Author Organization [facility] Healthcare Address [address] [place] [address] Care Team Providers Care Media Planner / Buyer Name Role Phone Elpidio Serrato MD Primary Care Provider [phone] Encounter Details Date Type Department Care Team (Late st Contact Info) Description 07/13/2020 9:50 AM CONVERTIBLE SOFA BEDSPRING TESTER Lab [facility] Advanced Medicine [facility] Advanced Medicine ([facility]) [address] [place] [address] [phone] Merna Bell MD [address] [facility] [address] [place], [place] [id number] Type 2 diabetes mellitus with moderate nonproliferative [...] on file Legal Sex Female 3:59 AM CONVERTIBLE SOFA BEDSPRING TESTER Gender Identity Female 05/13/2021 4:21 PM CONVERTIBLE SOFA BEDSPRING TESTER Sexual Orientation Not on file documented as of this encounter Discharge Disposition Disposition Code Departure Means Destination Discharge to home or self care documented in this encounter Plan of Treatment Not on file documented as of this encounter Procedures Procedure Name Priority Date/Time Associated Diagnosis Comments THYROID FUNCTION CASCADE Routine 07/13/2020 9:40 AM CONVERTIBLE SOFA BEDSPRING TESTER Vitamin D deficiency ALBUMIN CREATININE RATIO, URINE Routine 07/13/2020 9:40 AM CONVERTIBLE SOFA BEDSPRING TESTER 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, with long-term current use of insulin, unspecified laterality (CMS/HCC) PTH Routine 07/13/2020 9:40 AM CONVERTIBLE SOFA BEDSPRING TESTER Vitamin D deficiency HEMOGLOBIN A1C Routine 07/13/2020 9:40 AM CONVERTIBLE SOFA BEDSPRING TESTER 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, with long-term current use of insulin, unspecified laterality (CMS/HCC) LIPID PANEL Routine 07/13/2020 9:40 AM CONVERTIBLE SOFA BEDSPRING TESTER Mixed hyperlipidemia COMPREHENSIVE METABOLIC PANEL Routine 07/13/2020 9:40 AM CONVERTIBLE SOFA BEDSPRING TESTER 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 Current interpretive data was last revised 2018. Creatinine Ur 103.2 mg/dL [facility] Comment: Interpretive Data No reference range established. Current interpretive data was last revised 2018. Albumin Creatinine Ratio, Ur <12 1 - 29 mg/g [facility] Urine 07/13/2020 9:40 AM CONVERTIBLE SOFA BEDSPRING TESTER 07/13/2020 10:06 AM CONVERTIBLE SOFA BEDSPRING TESTER us Merna Bell MD LAB URINE ORDERABLES Final Re sult [facility] One [facility] Department [place] [address] * TSH reflex to free T4 (07/13/2020 9:40 AM CONVERTIBLE SOFA BEDSPRING TESTER) TSH 0.97 0.30 - 4.20 mcIUnit/mL [facility] Blood specimen (specimen) 07/13/2020 9:40 AM CONVERTIBLE SOFA BEDSPRING TESTER 07/13/2020 10:06 AM CONVERTIBLE SOFA BEDSPRING TESTER Merna Bell MD LAB BLOOD ORDERABLES Final Re sult Performing Organization Address [facility] de Phone Number [facility] [place] [address] * (ABNORMAL) PTH (07/13/2020 9:40 AM CONVERTIBLE SOFA BEDSPRING TESTER) PTH 83(H) 15 - 65 pg/mL [facility] Blood specimen (specimen) 07/13/2020 9:40 AM CONVERTIBLE SOFA BEDSPRING TESTER 07/13/2020 10:06 AM CONVERTIBLE SOFA BEDSPRING TESTER Merna Bell MD LAB BLOOD ORDERABLES Final Re sult Performing Organization Address [facility] de Phone Number [facility] [place] [address] * (ABNORMAL) Lipid panel (07/13/2020 9:40 AM CONVERTIBLE SOFA BEDSPRING TESTER) Cholesterol 158 30 - 199 mg/dL [facility] Comment: Interpretive Data Ages < or [...] revised on 2017. Triglycerides 214(H) <=149 mg/dL [facility] Comment: Interpretive Data Ages < [...] revised on 2017. HDL 41 >=40 mg/dL [facility] Comment: Interpretive Data Ages < [...] 2017. LDL, calculated 74 <=129 mg/dL [facility] Comment: Interpretive Data Ages < [...] revised on 2017. Non-HDL Cholesterol 117 mg/dL [facility] Comment: Interpretive Data Ages < or [...] last revised on 2017. Chol/HDL ratio [address] [facility] Blood specimen (specimen) 07/13/2020 9:40 AM CONVERTIBLE SOFA BEDSPRING TESTER 07/13/2020 10:06 AM CONVERTIBLE SOFA BEDSPRING TESTER us Merna Bell MD LAB BLOOD ORDERABLES Final Re sult [facility] One [facility] Department [place] [address] * (ABNORMAL) Comprehensive metabolic panel (07/13/2020 9:40 AM CONVERTIBLE SOFA BEDSPRING TESTER) Sodium 138 135 - 145 mmol/L [facility] Potassium, pl 5.4(H) 3.3 - 4.9 mmol/L [facility] Chloride 107 97 - 110 mmol/L [facility] CO2 23 22 - 32 mmol/L [facility] Anion gap 8 2 - 15 mmol/L [facility] BUN 47(H) 8 - 25 mg/dL [facility] Creatinine 1.27(H) 0.60 - 1.10 mg/dL [facility] Glucose 184 70 - 199 mg/dL [facility] Comment: Interpretive Data Fasting glucose >/= [...] 2017. Calcium 9.6 8.5 - 10.3 mg/dL [facility] Bilirubin, total 0.2 0.1 - 1.2 mg/dL [facility] Protein, pl 7.5 6.5 - 8.5 g/dL [facility] Albumin 4.4 3.5 - 5.0 g/dL [facility] Alk phos 87 40 - 130 Units/L [facility] ALT 17 7 - 45 Units/L [facility] AST 25 10 - 45 Units/L [facility] Blood specimen (specimen) 07/13/2020 9:40 AM CONVERTIBLE SOFA BEDSPRING TESTER 07/13/2020 10:06 AM CONVERTIBLE SOFA BEDSPRING TESTER Merna Bell MD LAB BLOOD ORDERABLES Final Re sult [facility] One [facility] Department of Laboratories [place], [place] [id number] * (ABNORMAL) Hemoglobin A1c (07/13/2020 9:40 AM CONVERTIBLE SOFA BEDSPRING TESTER) Hgb A1C 6.8(H) 4.0 - 5.6 % [facility] Estimated Average Glucose 148 mg/dL [facility] Comment: The ADA recommends reporting an estimated Average Glucose (eAG) with all Hemoglobin A1c results using the equation derived from a study of 507 normal and diabetic adults. ??Minority populations were underrepresented and children were not included. ?? (Diabetes Care 31:5453-5684, 2008). ??The eAG is not equivalent to a fasting glucose. Blood specimen (specimen) 07/13/2020 9:40 AM CONVERTIBLE SOFA BEDSPRING TESTER 07/13/2020 10:06 AM CONVERTIBLE SOFA BEDSPRING TESTER us Merna Bell MD LAB BLOOD ORDERABLES Final Re sult 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
--- OUTSIDE RECORDS SUMMARY | 2024-04-29 21:22 | XMS_ITS | Encounter Summary ---
Author Organization [facility] Address [address] [place] [address] Phone Care Team Providers Care Global Clinical Leader Name Role Phone Elpidio Serrato MD Primary Care Provider [phone] Reason for Visit * Reason Onset Date Comments CMN 12/28/2019 doxo Encounter Details Date Type Department Care Team (Late st Contact Info) Description 12/28/2019 Telephone [facility] Endocrinology Metabolism and Lipid [address] [facility] Advanced Medicine 13th [place] [address] [place] [address] Malika Carter RN CMN (doxo) Social History Tobacco Use Types Packs/Day Years Used Date Smoking Tobacco: Never Smokeless Tobacco: Never Comments Unknown Sex and Gender Information Value Date Recorded Sex Assigned at Not on file Legal Sex Female 3:59 AM INVENTORY CONTROL COORDINATOR Gender Identity Female 05/13/2021 4:21 PM INVENTORY CONTROL COORDINATOR Sexual Orientation Not on file documented as of this encounter Miscellaneous Notes * Telephone Encounter - Malika Carter RN - 12/28/2019 11:47 AM CDT CMN from [employer] completed and placed with chart note in Dr. Bell's folder for signature. documented in this encounter Plan of Treatment Not on file documented as of this encounter Visit Diagnoses Not on filedocumented in this encounter Care Teams Global Clinical Leader Relationship Specialty Start Date End Date Elpidio Serrato MD PCP - General Internal Medicine 06/09/18 documented as of this encounter
--- OUTSIDE RECORDS SUMMARY | 2024-04-29 21:22 | XMS_ITS | Encounter Summary ---
Author Organization [facility] Facility Care Team Providers Care Top Lift Nailer Name Role Phone Elpidio eSrrato MD Primary Care Provider Encounter Details Date Type Department Care Team (Latest Contact Info) Description 07/03/2019 Travel Social History Tobacco Use Types Packs/Day Years Used Date Smoking Tobacco: Never Smokeless Tobacco: Never Comments Unknown Sex and Gender Information Value Date Recorded Sex Assigned at Not on file Legal Sex Female 3:59 AM AREA LOSS PREVENTION MANAGER Gender Identity Female 05/13/2021 4:21 PM AREA LOSS PREVENTION MANAGER Sexual Orientation Not on file documented as of this encounter Plan of Treatment Not on file documented as of this encounter Visit Diagnoses Not on filedocumented in this encounter Care Teams Top Lift Nailer Relationship Specialty Start Date End Date Elpidio Serrato MD PCP - General Internal Medicine 06/09/18 documented as of this encounter
--- OUTSIDE RECORDS SUMMARY | 2024-04-29 21:22 | XMS_ITS | Encounter Summary ---
Author Organization [facility] Address [address] [place] [address] Phone Care Team Providers Care Multifocal Button Grinder Name Role Phone Elpidio Serrato MD Primary Care Provider [phone] Encounter Details Date Type Department Care Team (Late st Contact Info) Description 10/24/2020 8:00 AM CDT Office Visit [facility] Ophthalmology [address] [place] [phone] Makayla Ramos MD [address] [place] [address] Nuclear sclerotic cataract of both eyes (Primary Dx); Primary open angle glaucoma (POAG) of both eyes, moderate stage Social History Tobacco Use Types Packs/Day Years Used Date Smoking Tobacco: Never Smokeless Tobacco: Never Comments Unknown Sex and Gender Information Value Date Recorded Sex Assigned at Not on file Legal Sex Female 3:59 AM SHUTDOWN PLANNER Gender Identity Female 05/13/2021 4:21 PM SHUTDOWN PLANNER Sexual Orientation Not on file documented [...] Normal Normal Periphery Normal Normal Care Teams Multifocal Button Grinder Relationship Specialty Start Date End Date Elpidio Serrato MD PCP - General Internal Medicine 06/09/18 documented as of this encounter
--- OUTSIDE RECORDS SUMMARY | 2024-04-29 21:22 | XMS_ITS | Encounter Summary ---
Author Organization [facility] Address [address] [place] [address] Phone Care Team Providers Care Programming Instructor Name Role Phone Elpidio Serrato MD Primary Care Provider [phone] Reason for Referral * Diagnostic Imaging (Routine) - Closed Specialty Diagnoses / Procedures Referred By Contqi t Referred To Contact Diagnoses Age-related osteoporosis without current pathological fracture Vitamin D deficiency Fracture Procedures Dexa Axial Skeleton Bone Density 1 or 2 Site Merna Bell MD Phone: tel: fax: [facility] (All Locations) Referral ID Status Reason Start Date Expiration Date Visits Re quested Visits Authorized [id number] Closed 06/13/2020 07/13/2021 1 1 NG CLERKS SUPERVISOR Encounter Details Date Type Department Care Team (Latest Contact Info) Description 06/13/2020 9:20 AM CODING CLERKS SUPERVISOR Telemedicine [facility] Endocrinology Metabolism and Lipid [address] [place] [phone] Merna Bell MD [address] [facility] [address] [place] [address] Type 2 diabetes mellitus with moderate nonproliferative [...] on file Legal Sex Female 3:59 AM CODING CLERKS SUPERVISOR Gender Identity Female 05/13/2021 4:21 PM CODING CLERKS SUPERVISOR Sexual Orientation Not on file documented as of this encounter Progress Notes * Merna Bell MD - 06/13/2020 9:20 AM CST Images from the original note were not included. This was a telemedicine visit with Isabelle Lutz alone which took place via Telephone. During thevisit, I was located at home and the patient was located at home in the state [facility]. The patient visit started at 12:40 pm [...] a telephone or video visit during [address] explained to them. After being [...] will check TSH. Type 2 diabetes mellitus ([facility]) Glucose control could not be fully assessed on the telemedicine visit without Dexcom download. Recommend: - A1c - Continue current therapy - Check kidney function Vitamin D deficiency Check 25OHD, especially if considering therapy for osteoporosis. Hyperlipidemia Last LDL was 90, but diabetes therapies have changed. Will recheck. Merna Bell MD 06/13/2020 1:44 PM NG CLERKS SUPERVISOR documented in this encounter Miscellaneous Notes * Assessment & Plan Note - Merna Bell MD - 06/13/2020 1:43 PM CODING CLERKS SUPERVISOR Associated Problem(s): Hyperlipidemia Last LDL was 90, but diabetes therapies have changed. Will recheck. NG CLERKS SUPERVISOR * Assessment & Plan Note - Merna Bell MD - 06/13/2020 1:43 PM CODING CLERKS SUPERVISOR Associated Problem(s): Vitamin D deficiency Check 25OHD, especially if considering therapy for osteoporosis. NG CLERKS SUPERVISOR * Assessment & Plan Note - Merna Bell MD - 06/13/2020 1:39 PM CODING CLERKS SUPERVISOR Associated Problem(s): DM2 (diabetes mellitus, type 2) ([facility]) Glucose control could not be fully assessed on the telemedicine visit without Dexcom download. Recommend: - A1c - Continue current therapy - Check kidney function NG CLERKS SUPERVISOR NG CLERKS SUPERVISOR * Assessment & Plan Note - Merna Bell MD - 06/13/2020 1:39 PM CODING CLERKS SUPERVISOR Associated Problem(s): Hypothyroidism Has been well controlled on low dose levothyroxine, will check TSH. NG CLERKS SUPERVISOR * Addendum Note - Savita Vargas - 06/13/2020 9:20 AM CSTAddended by: SAVITA VARGAS on: 07/13/2020 09:35 AM Modules accepted: Orders NG CLERKS SUPERVISOR documented in this encounter Plan of Treatment Not on file documented as of this encounter Results * Dexa Axial Skeleton Bone Density 1 or 2 Site (07/13/2020 11:59 AM CODING CLERKS SUPERVISOR) Anatomical Region Laterality Modality Body N/A Radiographic Luba ging Narrative 07/17/2020 9:18 PM CODING CLERKS SUPERVISOR Patient Name: Isabelle Lutz Date of : 1950 Date of scan: 07/13/2020 Bone mineral density was performed on a [employer] Discovery Densitometer. ?? Machine Cross-calibration and Precision [...] mineral density scan were prepared by Katie Cabzeas who is accredited by the International Society of Clinical Densitometry. The overall patient assessment and scan interpretation were performed by Shayna Portillo M.D. who is certified by the International Society of Clinical Densitometry. [id number] us Merna Bell MD IMG DXA PROCEDURES Final Resu lt * (ABNORMAL) Hemoglobin A1c (07/13/2020 9:40 AM CODING CLERKS SUPERVISOR) Hgb A1C 6.8(H) 4.0 - 5.6 % [facility] Estimated Average Glucose 148 mg/dL [facility] Comment: The ADA recommends reporting an estimated Average Glucose (eAG) with all Hemoglobin A1c results using the equation derived from a study of 507 normal and diabetic adults. ??Minority populations were underrepresented and children were not included. ?? (Diabetes Care 31:0231-6326, 2008). ??The eAG is not equivalent to a fasting glucose. Blood specimen (specimen) 07/13/2020 9:40 AM CODING CLERKS SUPERVISOR 07/13/2020 10:06 AM CODING CLERKS SUPERVISOR us Merna Bell MD LAB BLOOD ORDERABLES Final Re sult [facility] Department [place] [address] * (ABNORMAL) Comprehensive metabolic panel (07/13/2020 9:40 AM CODING CLERKS SUPERVISOR) Pathologist [facility] Sodium 138 135 - 145 mmol/L [facility] Potassium, pl 5.4(H) 3.3 - 4.9 mmol/L [facility] Chloride 107 97 - 110 mmol/L [facility] CO2 23 22 - 32 mmol/L [facility] Anion gap 8 2 - 15 mmol/L [facility] BUN 47(H) 8 - 25 mg/dL [facility] Creatinine 1.27(H) 0.60 - 1.10 mg/dL [facility] Glucose 184 70 - 199 mg/dL [facility] Comment: Interpretive Data Fasting glucose >/= [...] 2017. Calcium 9.6 8.5 - 10.3 mg/dL [facility] Bilirubin, total 0.2 0.1 - 1.2 mg/dL [facility] Protein, pl 7.5 6.5 - 8.5 g/dL [facility] Albumin 4.4 3.5 - 5.0 g/dL [facility] Alk phos 87 40 - 130 Units/L [facility] ALT 17 7 - 45 Units/L [facility] AST 25 10 - 45 Units/L [facility] Blood specimen (specimen) 07/13/2020 9:40 AM CODING CLERKS SUPERVISOR 07/13/2020 10:06 AM CODING CLERKS SUPERVISOR us Merna Bell MD LAB BLOOD ORDERABLES Final Re sult [facility] Department [place] [address] * (ABNORMAL) Lipid panel (07/13/2020 9:40 AM CODING CLERKS SUPERVISOR) Cholesterol 158 30 - 199 mg/dL [facility] Comment: Interpretive Data Ages < or [...] revised on 2017. Triglycerides 214(H) <=149 mg/dL [facility] Comment: Interpretive Data Ages < or [...] on 2017. HDL 41 >=40 mg/dL [facility] Comment: Interpretive Data Ages < [...] 2017. LDL, calculated 74 <=129 mg/dL [facility] Comment: Interpretive Data Ages < [...] revised on 2017. Non-HDL Cholesterol 117 mg/dL [facility] Comment: Interpretive Data Ages < or [...] last revised on 2017. Chol/HDL ratio 4 [facility] Blood specimen (specimen) 07/13/2020 9:40 AM CODING CLERKS SUPERVISOR 07/13/2020 10:06 AM CODING CLERKS SUPERVISOR us Merna Bell MD LAB BLOOD ORDERABLES Final Re sult Performing Organization Address [facility] de Phone Number [facility] Department [place] [address] * (ABNORMAL) PTH (07/13/2020 9:40 AM CODING CLERKS SUPERVISOR) PTH 83(H) 15 - 65 pg/mL [facility] Blood specimen (specimen) 07/13/2020 9:40 AM CODING CLERKS SUPERVISOR 07/13/2020 10:06 AM CODING CLERKS SUPERVISOR Merna Bell MD LAB BLOOD ORDERABLES Final Re sult Performing Organization Address [facility]/ZIP Co de Phone Number [facility] [place] [address] * TSH reflex to free T4 (07/13/2020 9:40 AM CODING CLERKS SUPERVISOR) Pathologist [facility] TSH 0.97 0.30 - 4.20 mcIUnit/mL [facility] Blood specimen (specimen) 07/13/2020 9:40 AM CODING CLERKS SUPERVISOR 07/13/2020 10:06 AM CODING CLERKS SUPERVISOR Merna Bell MD LAB BLOOD ORDERABLES Final Re sult Performing Organization Address [facility] [place] [address] * Albumin Creatinine Ratio, Urine (07/13/2020 9:40 AM CODING CLERKS SUPERVISOR) Pathologist [facility] Albumin Ur <12.0 mg/L [facility] Comment: Interpretive Data No reference range established. Current interpretive data was last revised 2018. Creatinine Ur 103.2 mg/dL [facility] Comment: Interpretive Data No reference range established. Current interpretive data was last revised 2018. Albumin Creatinine Ratio, Ur <12 1 - 29 mg/g [facility] Urine 07/13/2020 9:40 AM CODING CLERKS SUPERVISOR 07/13/2020 10:06 AM CODING CLERKS SUPERVISOR Merna Bell MD LAB URINE ORDERABLES Final Re sult Performing Organization Address City/[facility]/ZIP Co de Phone Number [facility] [place] [address] documented in this encounter Visit Diagnoses Diagnosis [...] (natural) documented in this encounter Care Teams Programming Instructor Relationship Specialty Start Date End Date Elpidio Serrato MD PCP - General Internal Medicine 06/09/18 documented as of this encounter
--- OUTSIDE RECORDS SUMMARY | 2024-04-29 21:22 | XMS_ITS | Encounter Summary ---
Author Organization [facility] Address [address] [place] [address] Phone Care Team Providers Care Cathode Ray Tube Salvage Processor Name Role Phone Elpidio Serrato MD Primary Care Provider [phone] Reason for Visit * Reason Onset Date Comments Prior Auth 02/19/2020 Celebrex 200mg C ap (APPROVED 01/20/2020 thur 02/18/2021) Encounter Details Date Type Department Care Team (Late st Contact Info) Description 02/19/2020 Telephone [facility] Endocrinology Metabolism and Lipid [address] [facility] Advanced Medicine 13th [place] [address] [place] [address] Sonja Land CMA Prior Auth (Celebrex 200mg Cap (APPROVED 01/20/2020 thur 02/18/2021)) Social History Tobacco Use Types Packs/Day Years Used Date Smoking Tobacco: Never Smokeless Tobacco: Never Comments Unknown Sex and Gender Information Value Date Recorded Sex Assigned at Not on file Legal Sex Female 3:59 AM CREDIT PRODUCTS OFFICER Gender Identity Female 05/13/2021 4:21 PM CREDIT PRODUCTS OFFICER Sexual Orientation Not on file documented as of this encounter Miscellaneous Notes * Telephone Encounter - Aaliyah Jara MA - 02/19/2020 12:35 PM CDT Arthur: [id number] [employer] CeleBREX 200MG capsules Prior Auth Status: [...] on filedocumented in this encounter Care Teams Cathode Ray Tube Salvage Processor Relationship Specialty Start Date End Date Elpidio Serrato MD PCP - General Internal Medicine 06/09/18 documented as of this encounter
--- OUTSIDE RECORDS SUMMARY | 2024-04-29 21:22 | XMS_ITS | Encounter Summary ---
Author Organization [facility] Address [address] [place] [address] Phone Care Team Providers Care Enforcement Safety Officer Name Role Phone Elpidio Serrato MD Primary Care Provider [phone] Encounter Details Date Type Department Care Team (Latest Contact Info) Description 08/24/2019 9:40 AM CDT Telemedicine [facility] Endocrinology Metabolism and Lipid [address] [facility] 13th [place] [address] [place] [address] Merna Bell MD [address] [facility] [address] [place], [place] [id number] 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, with long-term current use of insulin, unspecified laterality (CMS/HCC) (Primary Dx); Vitamin D deficiency; Acquired hypothyroidism Social History Tobacco Use Types Packs/Day Years Used Date Smoking Tobacco: Never Smokeless Tobacco: Never Comments Unknown Sex and Gender Information Value Date Recorded Sex Assigned at Not on file Legal Sex Female 3:59 AM COMPUTER TERMINAL OPERATOR Gender Identity Female 05/13/2021 4:21 PM COMPUTER TERMINAL OPERATOR Sexual Orientation Not on file documented [...] 03/31/2019 Type 2 diabetes mellitus (CMS/[facility]) Current doses: Lantus, 48 units Humalo - [...] hypothyroidism documented in this encounter Care Teams Enforcement Safety Officer Relationship Specialty Start Date End Date Elpidio Serrato MD PCP - General Internal Medicine 06/09/18 documented as of this encounter
--- OUTSIDE RECORDS SUMMARY | 2024-04-29 21:22 | XMS_ITS | Encounter Summary ---
Author Organization [facility] Address [address] [place] [address] Phone Care Team Providers Care Redipper Name Role Phone Elpidio Serrato MD Primary Care Provider Reason for Referral * (Routine) - Closed Specialty Diagnoses / Procedures Referred By Constantino alvarado Referred To Contact Diagnoses Primary open angle glaucoma (POAG) of both eyes, moderate stage Procedures Laser Trabeculoplasty Selective - OD - Right Eye Niranjan Thomas MD [address] [place] [address] Phone: tel: fax: [facility] (All Locations) Referral ID Status Reason Start Date Expiration Date Visits Re quested Visits Authorized [id number] Closed 05/28/2019 12/06/2020 1 1 CTOR INDUSTRIAL RELATIONS Reason for Visit * Procedure (Routine) - Closed Specialty Diagnoses / Procedures Referred By Constantino alvarado Referred To Contact Diagnoses Primary open angle glaucoma (POAG) of both eyes, moderate stage Procedures Laser Trabeculoplasty Selective - [place] [address] [place] [address] Phone: tel: fax: [facility] (All Locations) Referral ID Status Reason Start Date Expiration Date Visits Re quested Visits Authorized [id number] Closed 04/23/2019 11/01/2020 1 1 Encounter Details Date Type Department Care Team (Late st Contact Info) Description 05/28/2019 8:15 AM DIRECTOR INDUSTRIAL RELATIONS Clinical Support [facility] Ophthalmology [address] [facility] [place] [id number] Niranjan Thomas MD [address] [facility] [address] [place] [address] Social History Tobacco Use Types Packs/Day Years Used Date Smoking Tobacco: Never Smokeless Tobacco: Never Comments Unknown Sex and Gender Information Value Date Recorded Sex Assigned at Not on file Legal Sex Female 3:59 AM DIRECTOR INDUSTRIAL RELATIONS Gender Identity Female 05/13/2021 4:21 PM DIRECTOR INDUSTRIAL RELATIONS Sexual Orientation Not on file documented as of this encounter Patient Instructions * Patient Instructions* Michelle Soni - 05/28/2019 8:15 AM DIRECTOR INDUSTRIAL RELATIONS CTOR INDUSTRIAL RELATIONS documented in this encounter Ordered Prescriptions Prescription [...] - RIGHT EYE Routine 05/28/2019 11:14 AM DIRECTOR INDUSTRIAL RELATIONS Primary open angle glaucoma (POAG) of both eyes, moderate stage documented in this encounter Results * Laser Trabeculoplasty Selective - OD - Right Eye (05/28/2019 11:14 AM DIRECTOR INDUSTRIAL RELATIONS) Anatomical Region Laterality Modality Head Laser Room Narrative 05/28/2019 11:14 AM DIRECTOR INDUSTRIAL RELATIONS Time Out Informed consent was obtained after [...] 05/28/2019 documented in this encounter Care Teams Redipper Relationship Specialty Start Date End Date Elpidio Serrato MD PCP - General Internal Medicine 06/09/18 documented as of this encounter
--- OUTSIDE RECORDS SUMMARY | 2024-04-29 21:22 | XMS_ITS | Encounter Summary ---
Author Organization [facility] Address [address] [place] [address] Phone Care Team Providers Care Sheet Metal Installer Name Role Phone Elpidio Serrato MD Primary Care Provider [phone] Reason for Referral * (Routine) - Closed Specialty Diagnoses / Procedures Referred By Contac t Referred To Contact Diagnoses Primary open angle glaucoma (POAG) of both eyes, moderate stage Procedures OCT, Optic Nerve - OU - Both Eyes Makayla Ramos MD [address] [place] [address] Phone: tel: fax: [facility] (All Locations) Referral ID Status Reason Start Date Expiration Date Visits Re quested Visits Authorized [id number] Closed 01/15/2020 02/13/2021 1 1 * (Routine) - Closed Specialty Diagnoses / Procedures Referred By Contqi t Referred To Contact Diagnoses Primary open angle glaucoma (POAG) of both eyes, moderate stage Procedures Forrest Visual Field - OU - Both Eyes Makayla Ramos MD [address] [place] [address] Phone: tel: fax: [facility] (All Locations) Referral ID Status Reason Start Date Expiration Date Visits Re quested Visits Authorized [id number] Closed 01/15/2020 02/13/2021 1 1 Encounter Details Date Type Department Care Team (Late st Contact Info) Description 01/15/2020 Orders Only [facility] Ophthalmology [address] [facility] [place] [address] Makayla Ramos MD [address] [place] [address] Primary open angle glaucoma (POAG) of both eyes, moderate stage (Primary Dx) Social History Tobacco Use Types Packs/Day Years Used Date Smoking Tobacco: Never Smokeless Tobacco: Never Comments Unknown Sex and Gender Information Value Date Recorded Sex Assigned at Not on file Legal Sex Female 3:59 AM SERVICE CENTER APPRAISER Gender Identity Female 05/13/2021 4:21 PM SERVICE CENTER APPRAISER Sexual Orientation Not on file documented as [...] stage documented in this encounter Care Teams Sheet Metal Installer Relationship Specialty Start Date End Date Elpidio Serrato MD PCP - General Internal Medicine 06/09/18 documented as of this encounter
--- OUTSIDE RECORDS SUMMARY | 2024-04-29 21:22 | XMS_ITS | Encounter Summary ---
Author Organization [facility] Address [address] [place] [address] Phone Care Team Providers Care Hand Tier Name Role Phone Elpidio Serrato MD Primary Care Provider [phone] Encounter Details Date Type Department Care Team (Late st Contact Info) Description 02/08/2020 9:40 AM CDT Telemedicine [facility] Endocrinology Metabolism and Lipid [address] [facility] 13th [place] [address] [place] [address] Merna Bell MD [address] [facility] [address] [place], [place] [id number] Type 2 diabetes mellitus (CMS/HCC) (Primary Dx); Acquired hypothyroidism; Mixed hyperlipidemia; Vitamin D deficiency Social History Tobacco Use Types Packs/Day Years Used Date Smoking Tobacco: Never Smokeless Tobacco: Never Comments Unknown Sex and Gender Information Value Date Recorded Sex Assigned at Not on file Legal Sex Female 3:59 AM CATCHER HELPER Gender Identity Female 05/13/2021 4:21 PM CATCHER HELPER Sexual Orientation Not on file documented [...] patient was located at home in the [facility]. The patient visit started at 9:45 and ended at 10:08. Total encounter time was 35 minutes, which includes time spent today on pre charting, the patient encounter, and post charting. The patient: has been informed that the visit may not be secure and acknowledged the information. The option of participating in a telephone or video visit during the [facility] [place] [address] emergencywas explained to them. After being given [...] 102 03/31/2019 Type 2 diabetes mellitus ([facility]) Glucose control is stable. Pt does not [...] documented as of this encounter Care Teams Hand Tier Relationship Specialty Start Date End Date Elpidio Serrato MD PCP - General Internal Medicine 06/09/18 documented as of this encounter
--- OUTSIDE RECORDS SUMMARY | 2024-04-29 21:22 | XMS_ITS | Encounter Summary ---
Author Organization [facility] Address [address] [place] [address] Phone Care Team Providers Care Parking Attendant Name Role Phone Elpidio Serraot MD Primary Care Provider [phone] Reason for Visit * Reason Onset Date Comments Solara 12/31/2019 SWO Encounter Details Date Type Department Care Team (Late st Contact Info) Description 12/31/2019 Telephone [facility] Endocrinology Metabolism and Lipid [address] [facility] 13th [place] [address] [place] [address] Gerson Cuadra CMA [place] ([place]) Social History Tobacco Use Types Packs/Day Years Used Date Smoking Tobacco: Never Smokeless Tobacco: Never Comments Unknown Sex and Gender Information Value Date Recorded Sex Assigned at Not on file Legal Sex Female 3:59 AM FIELD SERVICES MANAGER Gender Identity Female 05/13/2021 4:21 PM FIELD SERVICES MANAGER Sexual Orientation Not on file documented as of this encounter Miscellaneous Notes * Telephone Encounter - Gerson Cuadra CMA - 12/31/2019 12:56 PM CDT SWO and chart note in providers box awaiting signature documented in this encounter Plan of Treatment Not on file documented as of this encounter Visit Diagnoses Not on filedocumented in this encounter Care Teams Parking Attendant Relationship Specialty Start Date End Date Elpidio Serrato MD PCP - General Internal Medicine 06/09/18 documented as of this encounter
--- OUTSIDE RECORDS SUMMARY | 2024-04-29 21:22 | XMS_ITS | Encounter Summary ---
Author Organization [facility] Cloud [facility] of [facility] Address [address] [place] [address] Phone Care Team Providers Care Funding Specialist Name Role Phone Elpidio Serrato MD Primary Care Provider [phone] Reason for Visit * Reason Comments Osteoporosis * Diagnostic Imaging (Routine) - Closed Specialty Diagnoses / Procedures Referred By Contac t Referred To Contact Diagnoses Age-related osteoporosis without current pathological fracture Vitamin D deficiency Fracture Procedures Dexa Axial Skeleton Bone Density 1 or 2 Site Merna Bell MD Phone: tel: fax: [facility] (All Locations) Referral ID Status Reason Start Date Expiration Date Visits Re quested Visits Authorized [id number] Closed 06/13/2020 07/13/2021 1 1 Encounter Details Date Type Department Care Team (Latest Contact Info) Description 07/13/2020 10:10 AM VISUAL MERCHANDISING COORDINATOR Clinical Support [facility] Bone Health [facility] 5th [place] [address] [place] [address] Age-related osteoporosis without current pathological fracture ; Vitamin D deficiency; Fracture; Age-related osteoporosis without current pathological fracture; Osteopenia of left hip; Post-menopausal Social History Tobacco Use Types Packs/Day Years Used Date Smoking Tobacco: Never Smokeless Tobacco: Never Comments Unknown Sex and Gender Information Value Date Recorded Sex Assigned at Not on file Legal Sex Female 3:59 AM VISUAL MERCHANDISING COORDINATOR Gender Identity Female 05/13/2021 4:21 PM VISUAL MERCHANDISING COORDINATOR Sexual Orientation Not on file documented as of this encounter Plan of Treatment Not on file documented as of this encounter Procedures Procedure Name Priority Date/Time Associated Diagnosis Comments DEXA AXIAL SKELETON BONE DENSITY 1 OR MORE SITES Schedule Routine, Read Routine (OP Routine) 07/13/2020 11:59 AM VISUAL MERCHANDISING COORDINATOR Age-related osteoporosis without current pathological fracture Vitamin D deficiency Fracture documented in this encounter Results * Dexa Axial Skeleton Bone Density 1 or 2 Site (07/13/2020 11:59 AM VISUAL MERCHANDISING COORDINATOR) Anatomical Region Laterality Modality Body N/A Radiographic Luba ging Narrative 07/17/2020 9:18 PM VISUAL MERCHANDISING COORDINATOR Patient Name: Isabelle Lutz Date of : 1950 Date of scan: 07/13/2020 Bone mineral density was performed on a HoloThermalin Diabetes Discovery Densitometer. ?? Machine Cross-calibration and Precision [...] by the International Society of Clinical Densitometry. [id number] us Merna Bell MD IMG DXA PROCEDURES Final Resu lt documented in this encounter Visit Diagnoses Diagnosis Age-related osteoporosis without current pathological fracture Vitamin D deficiency Fracture Closed fracture of unspecified bone Osteopenia of left hip Post-menopausal Asymptomatic postmenopausal status (age-related) (natural) documented in this encounter Care Teams Funding Specialist Relationship Specialty Start Date End Date Eplidio Serrato MD PCP - General Internal Medicine 06/09/18 documented as of this encounter
--- OUTSIDE RECORDS SUMMARY | 2024-04-29 21:22 | XMS_ITS | Encounter Summary ---
Author Organization [facility] Address [address] [place] [address] Phone Care Team Providers Care Hog Scalder Name Role Phone Elpidio Serrato MD Primary Care Provider [phone] Reason for Visit * Reason Onset Date Comments different pharmacy for medication 06/09/2020 Encounter Details Date Type Department Care Team (Late st Contact Info) Description 06/09/2020 Telephone [facility] Ophthalmology [address] [place], [place] [id number] Makayla Ramos MD [address] [place], [place] [id number] different pharmacy for medication Social History Tobacco Use Types Packs/Day Years Used Date Smoking Tobacco: Never Smokeless Tobacco: Never Comments Unknown Sex and Gender Information Value Date Recorded Sex Assigned at Not on file Legal Sex Female 3:59 AM PULMONOLOGIST/INTENSIVIST Gender Identity Female 05/13/2021 4:21 PM PULMONOLOGIST/INTENSIVIST Sexual Orientation Not on file documented as of this encounter Miscellaneous Notes * Telephone Encounter - Eloisa Luciano COA - 06/09/2020 11:20 AM CST I updated her chart to reflect this. ONOLOGIST/INTENSIVIST * Telephone Encounter - MichaelaInezMarcia - 06/09/2020 10:17 AM CST Pt called and stated that the next time her prescriptions for latanoprost and combigan need to be filled she would like it done so through the mail order pharmacy on file. Pharmacy fax number is [phone] and phone number is [phone]. Best contact number for pt is [phone] ONOLOGIST/INTENSIVIST documented in this encounter Plan of Treatment Not on file documented as of this encounter Visit Diagnoses Not on filedocumented in this encounter Care Teams Hog Scalder Relationship Specialty Start Date End Date Elpidio Serrato MD PCP - General Internal Medicine 06/09/18 documented as of this encounter
--- OUTSIDE RECORDS SUMMARY | 2024-04-29 21:22 | XMS_ITS | Encounter Summary ---
Author Organization [facility] Address [address] [place] [address] Phone Care Team Providers Care Financial Project Manager Name Role Phone Elpidio Serrato MD Primary Care Provider [phone] Reason for Visit * (Routine) - Closed Specialty Diagnoses / Procedures Referred By Constantino alvarado Referred To Contact Diagnoses Primary open angle glaucoma (POAG) of both eyes, moderate stage Procedures Forrest Visual Field - OU - Both Eyes Makayla Ramos MD [address] [place] [address] Phone: tel: fax: [facility] (All Locations) Referral ID Status Reason Start Date Expiration Date Visits Re quested Visits Authorized [id number] Closed 01/15/2020 02/13/2021 1 1 Encounter Details Date Type Department Care Team (Late st Contact Info) Description 01/25/2020 8:10 AM CDT Imaging Exam [facility] Ophthalmology [address] [facility] 6th [place] [address] Primary open angle glaucoma (POAG) of both eyes, moderate stage Social History Tobacco Use Types Packs/Day Years Used Date Smoking Tobacco: Never Smokeless Tobacco: Never Comments Unknown Sex and Gender Information Value Date Recorded Sex Assigned at Not on file Legal Sex Female 3:59 AM CASINO MANAGER Gender Identity Female 05/13/2021 4:21 PM CASINO MANAGER Sexual Orientation Not on file documented [...] stage documented in this encounter Care Teams Financial Project Manager Relationship Specialty Start Date End Date Elpidio Serrato MD PCP - General Internal Medicine 06/09/18 documented as of this encounter
--- OUTSIDE RECORDS SUMMARY | 2024-04-29 21:22 | XMS_ITS | Encounter Summary ---
Author Organization [facility] Address [address] [place] [address] Phone Care Team Providers Care Deputy Manager Name Role Phone Elpidio Serrato MD Primary Care Provider [phone] Encounter Details Date Type Department Care Team (Latest Contact Info) Description 10/31/2020 8:00 AM CDT Telemedicine [facility] Endocrinology Metabolism and Lipid [address] [facility] 13th [place] [address] [place] [address] Merna Bell MD [address] [facility] [address] [place], [place] [id number] Mixed hyperlipidemia (Primary Dx); Hypertension, unspecified type; [...] on file Legal Sex Female 3:59 AM BEAUTY SALES CONSULTANT Gender Identity Female 05/13/2021 4:21 PM BEAUTY SALES CONSULTANT Sexual Orientation Not on file documented [...] located at home in the state of [place]. The patient visit started at 0757 and [...] a telephone or video visit during the [address] emergencywas explained to them. After being [...] some home measurements. Type 2 diabetes mellitus ([facility]) Glucoses are excellent and variability is acceptable [...] Problem(s): DM2 (diabetes mellitus, type 2) ([facility]) Glucoses are excellent and variability is acceptable [...] D 25-OH 40 30 - 80 ng/mL [facility] Blood 01/13/2021 11:0 0 AM CDT 01/13/2021 11:35 AM CDT us Merna Bell MD LAB BLOOD ORDERABLES Final Re sult [facility] [place] [address] * (ABNORMAL) Renal function panel (01/13/2021 11:00 AM CDT) Pathologist [facility] Sodium 140 135 - 145 mmol/L [facility] Potassium, pl 4.7 3.3 - 4.9 mmol/L [facility] Chloride 108 97 - 110 mmol/L [facility] CO2 24 22 - 32 mmol/L [facility] Anion gap 8 2 - 15 mmol/L [facility] BUN 39(H) 8 - 25 mg/dL [facility] Creatinine 1.10 0.60 - 1.10 mg/dL [facility] Glucose 143 70 - 199 mg/dL [facility] Comment: Interpretive Data Fasting glucose >/= [...] 2017. Calcium 9.6 8.5 - 10.3 mg/dL [facility] Phosphorus, pl 3.8 2.3 - 4.5 mg/dL [facility] Albumin 4.2 3.5 - 5.0 g/dL [facility] Blood 01/13/2021 11:0 0 AM CDT 01/13/2021 11:35 AM CDT Merna Bell MD LAB BLOOD ORDERABLES Final Re sult Performing Organization Address City/[facility] Co de Phone Number [facility] [place] [address] * (ABNORMAL) PTH (01/13/2021 11:00 AM CDT) PTH 69(H) 15 - 65 pg/mL [facility] Blood 01/13/2021 11:0 0 AM CDT 01/13/2021 11:35 AM CDT Merna Bell MD LAB BLOOD ORDERABLES Final Re sult Performing Organization Address [facility] de Phone Number [facility] [place] [address] * (ABNORMAL) Lipid panel (01/13/2021 11:00 AM CDT) Cholesterol 178 30 - 199 mg/dL [facility] Comment: Interpretive Data Ages < or [...] on 2017. Triglycerides 213(H) <=149 mg/dL [facility] Comment: Interpretive Data Ages < or [...] on 2017. HDL 44 >=40 mg/dL [facility] Comment: Interpretive Data Ages < or [...] 2017. LDL, calculated 91 <=129 mg/dL [facility] Comment: Interpretive Data Ages < or [...] on 2017. Non-HDL Cholesterol 134 mg/dL [facility] Comment: Interpretive Data Ages < or [...] last revised on 2017. Chol/HDL ratio 4 [facility] Blood 01/13/2021 11:0 0 AM CDT 01/13/2021 11:35 AM CDT us Merna Bell MD LAB BLOOD ORDERABLES Final Re sult [facility] [place] [address] * (ABNORMAL) Hemoglobin A1c (01/13/2021 11:00 AM CDT) Hgb A1C 7.2(H) 4.0 - 5.6 % [facility] Estimated Average Glucose 160 mg/dL [facility] Comment: The ADA recommends reporting an [...] MD LAB BLOOD ORDERABLES Final Re sult [facility] [place] [address] * TSH reflex to free T4 (01/13/2021 11:00 AM CDT) TSH 1.15 0.30 - 4.20 mcIUnit/mL [facility] Blood 01/13/2021 11:0 0 AM CDT 01/13/2021 11:35 AM CDT Merna Bell MD LAB BLOOD ORDERABLES Final Re sult Performing Organization Address [facility] de Phone Number [facility] [place] [address] documented in this encounter Visit Diagnoses Diagnosis [...] documented as of this encounter Care Teams Deputy Manager Relationship Specialty Start Date End Date Elpidio Serrato MD PCP - General Internal Medicine 06/09/18 documented as of this encounter
--- OUTSIDE RECORDS SUMMARY | 2024-04-29 21:22 | XMS_ITS | Encounter Summary ---
Author Organization [facility] Address [address] [place] [address] Phone Care Team Providers Care Service Shop Foreman Name Role Phone Elpidio Serrato MD Primary Care Provider [phone] Reason for Visit * Reason Comments Glaucoma Encounter Details Date Type Department Care Team (Late st Contact Info) Description 01/25/2020 8:45 AM CDT Office Visit [facility] Ophthalmology [address] [facility] [place] [address] Makayla Ramos MD [address] [place] [address] Primary open angle glaucoma (POAG) of both eyes, moderate stage (Primary Dx); Nuclear sclerotic cataract of both eyes Social History Tobacco Use Types Packs/Day Years Used Date Smoking Tobacco: Never Smokeless Tobacco: Never Comments Unknown Sex and Gender Information Value Date Recorded Sex Assigned at Not on file Legal Sex Female 3:59 AM SUPERVISOR METAL HANGING Gender Identity Female 05/13/2021 4:21 PM SUPERVISOR METAL HANGING Sexual Orientation Not on file documented as [...] 0.85 0.85-9 Macula Normal Normal Care Teams Service Shop Foreman Relationship Specialty Start Date End Date Elpidio Serrato MD PCP - General Internal Medicine 06/09/18 documented as of this encounter
--- OUTSIDE RECORDS SUMMARY | 2024-04-29 21:22 | XMS_ITS | Encounter Summary ---
Author Organization [facility] Address [address] [place] [address] Phone Care Team Providers Care District Adviser Name Role Phone Elpidio Serrato MD Primary Care Provider [phone] Reason for Visit * Reason Comments Glaucoma Encounter Details Date Type Department Care Team (Late st Contact Info) Description 04/25/2020 8:00 AM BOTTLING LINE OPERATOR Office Visit [facility] Ophthalmology [address] [facility] [place] [address] Makayla Ramos MD [address] [place] [address] Primary open angle glaucoma (POAG) of both eyes, moderate stage (Primary Dx); Nuclear sclerotic cataract of both eyes Social History Tobacco Use Types Packs/Day Years Used Date Smoking Tobacco: Never Smokeless Tobacco: Never Comments Unknown Sex and Gender Information Value Date Recorded Sex Assigned at Not on file Legal Sex Female 3:59 AM BOTTLING LINE OPERATOR Gender Identity Female 05/13/2021 4:21 PM BOTTLING LINE OPERATOR Sexual Orientation Not on file documented as of this encounter Patient Instructions * Patient Instructions* Makayla Ramos MD - 04/25/2020 8:00 AM BOTTLING LINE OPERATOR LING LINE OPERATOR documented in this encounter Progress Notes [...] agree with the findings/plan of the Resident/Fellow LING LINE OPERATOR documented in this encounter Miscellaneous Notes * Assessment & Plan Note - Makayla Ramos MD - 04/16/2020 8:18 AM BOTTLING LINE OPERATOR Associated Problem(s): Primary open angle glaucoma (POAG) [...] 6 months with DFE OU, testing thereafter LING LINE OPERATOR LING LINE OPERATOR * Assessment & Plan Note - Makayla Ramos MD - 04/16/2020 8:17 AM BOTTLING LINE OPERATOR Associated Problem(s): Pseudophakia of both eyes Nearing visual significance May need CEIOL/MIGS soon, but monitor for now LING LINE OPERATOR documented in this encounter Plan of [...] 0.85 0.85-9 Macula Normal Normal Care Teams District Adviser Relationship Specialty Start Date End Date Elpidio Serrato MD PCP - General Internal Medicine 06/09/18 documented as of this encounter
--- OUTSIDE RECORDS SUMMARY | 2024-04-29 21:22 | XMS_ITS | Encounter Summary ---
Author Organization [facility] Address [address] [place] [address] Phone Care Team Providers Care Entry Writer Name Role Phone Elpidio Serrato MD Primary Care Provider [phone] Reason for Visit * (Routine) - Closed Specialty Diagnoses / Procedures Referred By Constantino alvarado Referred To Contact Diagnoses Primary open angle glaucoma (POAG) of both eyes, moderate stage Procedures OCT, Optic Nerve - OU - Both Eyes Makayla Ramos MD [address] [place] [address] Phone: tel: fax: [facility] (All Locations) Referral ID Status Reason Start Date Expiration Date Visits Re quested Visits Authorized [id number] Closed 01/15/2020 02/13/2021 1 1 Encounter Details Date Type Department Care Team (Late st Contact Info) Description 01/25/2020 8:30 AM CDT Imaging Exam [facility] Ophthalmology [address] [facility] [address]th [place] [address] Primary open angle glaucoma (POAG) of both eyes, moderate stage Social History Tobacco Use Types Packs/Day Years Used Date Smoking Tobacco: Never Smokeless Tobacco: Never Comments Unknown Sex and Gender Information Value Date Recorded Sex Assigned at Not on file Legal Sex Female 3:59 AM LEAF TIER Gender Identity Female 05/13/2021 4:21 PM LEAF TIER Sexual Orientation Not on file documented as [...] stage documented in this encounter Care Teams Entry Writer Relationship Specialty Start Date End Date Elpidio Serrato MD PCP - General Internal Medicine 06/09/18 documented as of this encounter
--- OUTSIDE RECORDS SUMMARY | 2024-04-29 21:22 | XMS_ITS | Encounter Summary ---
Author Organization [facility] Address [address] [place] [address] Phone Care Team Providers Care Vice President Financial Name Role Phone Elpidio Serrato MD Primary Care Provider [phone] Encounter Details Date Type Department Care Team (Late st Contact Info) Description 12/04/2019 8:40 AM CDT Office Visit [facility] Ophthalmology [address] [facility] 6th [address], [address] [place] [address] Pratima Perez, OD [address] [place] [address] Nuclear sclerotic cataract of both eyes (Primary Dx); Primary open angle glaucoma (POAG) of both eyes, moderate stage; Type 2 diabetes mellitus (CMS/HCC) Social History Tobacco Use Types Packs/Day Years Used Date Smoking Tobacco: Never Smokeless Tobacco: Never Comments Unknown Sex and Gender Information Value Date Recorded Sex Assigned at Not on file Legal Sex Female 3:59 AM MARINE TECHNICIAN Gender Identity Female 05/13/2021 4:21 PM MARINE TECHNICIAN Sexual Orientation Not on file documented [...] Glc 2 weeks. Type 2 diabetes mellitus ([facility]/HCC) Assessment & Plan: Last DFE 04/2019.Stressed BG control. Return approx 04/2020 for DFE Lab Results Component Value Date HGBA1C 7.3 03/31/2019 documented in this encounter Miscellaneous Notes * Assessment & Plan Note - Pratima Perez, OD - 12/05/2019 7:49 PM CDT Associated Problem(s): DM2 (diabetes mellitus, type 2) ([facility]) Last DFE 04/2019.Stressed BG control. Return approx [...] 0.85 0.85-9 Macula Normal Normal Care Teams Vice President Financial Relationship Specialty Start Date End Date Elpidio Serrato MD PCP - General Internal Medicine 06/09/18 documented as of this encounter
--- OUTSIDE RECORDS SUMMARY | 2024-04-29 21:23 | XMS_ITS | Encounter Summary ---
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, with long-term current use of insulin, unspecified laterality (HCC) Merna Bell MD Phone: tel: fax: [address] [place] [address] Referral ID Status Reason Start Date Expiration Date V isits Requested Visits Authorized [id number] Closed Specialty Services Required 02/25/2018 12/05/2019 10 10 Question Answer AMBREFDIABNUTMEDI No DNRFR Individual DNSELFRFR Follow-Up DSME/T DSME/T Content All 10 DSMT content areas as appropriate DNMNTRFR Intital MNT Injectable Medications Yes Medication Name Medication Name Amount Amount Frequency Frequency Route Route Encounter Details Date Type Department Care Team (Latest Contact Info) Description 02/25/2018 Orders Only [facility] Endocrinology Metabolism and Lipid [address] [place] [address] [place] [address] Merna Bell MD [address] [facility] [address] [place] [address] 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, with long-term current use of insulin, unspecified laterality (CMS/HCC) (Primary Dx) Social History Tobacco Use Types Packs/Day Years Used Date Smoking Tobacco: Never Comments Unknown Sex and Gender Information Value Date Recorded Sex Assigned at Not on file Legal Sex Female 3:59 AM PERFORMANCE IMPROVEMENT COORDINATOR Gender Identity Female 05/13/2021 4:21 PM PERFORMANCE IMPROVEMENT COORDINATOR Sexual Orientation Not on file documented [...] Primary documented in this encounter Care Teams Wire Galvanizer Relationship Specialty Start Date End Date Joaquin Melchor MD [address] [place] [address] PCP - General 06/25/16 06/08/18 documented as of this encounter
--- OUTSIDE RECORDS SUMMARY | 2024-04-29 21:23 | XMS_ITS | Encounter Summary ---
Author Organization [facility] Address [address] [place] [address] Phone Care Team Providers Care Children'S Zoo Caretaker Name Role Phone Joaquin Melchor MD Primary Care Prov ider Encounter Details Date Type Department Care Team (Late st Contact Info) Description 01/20/2018 Telephone [address] [place] [address] Claudia Harris, CAPRI Social History Tobacco Use Types Packs/Day Years Used Date Smoking Tobacco: Never Comments Unknown Sex and Gender Information Value Date Recorded Sex Assigned at Not on file Legal Sex Female 3:59 AM HAND BASEBALL SEWER Gender Identity Female 05/13/2021 4:21 PM HAND BASEBALL SEWER Sexual Orientation Not on file documented as [...] on filedocumented in this encounter Care Teams [employer] Caretaker Relationship Specialty Start Date End Date Joaquin Melchor MD [address] [place] [address] PCP - General 06/25/16 06/08/18 documented as of this encounter
--- OUTSIDE RECORDS SUMMARY | 2024-04-29 21:23 | XMS_ITS | Encounter Summary ---
Author Organization [facility] Address [address] [place] [address] Phone Care Team Providers Care Land Leveler Name Role Phone Elpidio Serrato MD Primary Care Provider [phone] Encounter Details Date Type Department Care Team (Late st Contact Info) Description 06/25/2018 Telephone [facility] Endocrinology Metabolism and Lipid [address] [facility] Advanced Medicine [address]th [place] [address] [place] [address] Malika Carter RN Social History Tobacco Use Types Packs/Day Years Used Date Smoking Tobacco: Never Smokeless Tobacco: Never Comments Unknown Sex and Gender Information Value Date Recorded Sex Assigned at Not on file Legal Sex Female 3:59 AM CHEMICAL PROCESS OPERATOR Gender Identity Female 05/13/2021 4:21 PM CHEMICAL PROCESS OPERATOR Sexual Orientation Not on file documented as of this encounter Miscellaneous Notes * Telephone Encounter - Malika Carter RN - 06/25/2018 12:46 PM CHEMICAL PROCESS OPERATOR Patient called to review lab results. Notified that BUN was elevated at 27. Patient also requested to have results of x-ray of clavicle. Results deferred to physician for interpretation and physiciannotified. ICAL PROCESS OPERATOR documented in this encounter Plan of Treatment Not on file documented as of this encounter Visit Diagnoses Not on filedocumented in this encounter Care Teams Land Leveler Relationship Specialty Start Date End Date Elpidio Serrato MD PCP - General Internal Medicine 06/09/18 documented as of this encounter
--- OUTSIDE RECORDS SUMMARY | 2024-04-29 21:23 | XMS_ITS | Encounter Summary ---
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, with long-term current use of insulin, unspecified laterality (HCC) Merna Bell MD Phone: tel: fax: [id number] [place] [address] Referral ID Status Reason Start Date Expiration Date V isits Requested Visits Authorized [id number] Closed Specialty Services Required 06/12/2018 12/22/2019 10 10 Question Answer AMBREFDIABNUTMEDI No Injectable Medications Yes Medication Name Medication Name Amount Amount Frequency Frequency Route Route ES INSPECTOR Encounter Details Date Type Department Care Team (Latest Contact Info) Description 06/12/2018 Orders Only [facility] Endocrinology Metabolism and Lipid [address] [facility] [address]th [place] [address] [place] [address] Merna Bell MD [address] [facility] [address] [place] [address] 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, with long-term current use of insulin, unspecified laterality (CMS/HCC) (Primary Dx) Social History Tobacco Use Types Packs/Day Years Used Date Smoking Tobacco: Never Smokeless Tobacco: Never Comments Unknown Sex and Gender Information Value Date Recorded Sex Assigned at Not on file Legal Sex Female 3:59 AM SCALES INSPECTOR Gender Identity Female 05/13/2021 4:21 PM SCALES INSPECTOR Sexual Orientation Not on file documented [...] Primary documented in this encounter Care Teams Hard Metals Hand Engraver Relationship Specialty Start Date End Date Elpidio Serrato MD PCP - General Internal Medicine 06/09/18 documented as of this encounter
--- OUTSIDE RECORDS SUMMARY | 2024-04-29 21:23 | XMS_ITS | Encounter Summary ---
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, with long-term current use of insulin, unspecified laterality (CMS/HCC) Social History Tobacco Use Types Packs/Day Years Used Date Smoking Tobacco: Never Smokeless Tobacco: Never Comments Unknown Sex and Gender Information Value Date Recorded Sex Assigned at Not on file Legal Sex Female 3:59 AM HYDROMETEOROLOGICAL TECHNICIAN Gender Identity Female 05/13/2021 4:21 PM HYDROMETEOROLOGICAL TECHNICIAN Sexual Orientation Not on file documented as of this encounter Patient Instructions * Patient Instructions* Monserrat Manning CDE - 06/16/2018 10:00 AM HYDROMETEOROLOGICAL TECHNICIAN Stop Glimepiride Humalog 15 units with breakfast and 10 units for lunch and dinner plus sliding scale 1:25>150 mg/dl Less than 150 No extra insulin 151-175 1 176-200 2 201-225 3 226-250 4 251-275 5 276-300 6 301-325 7 [phone] Work on limiting calorie intake to 1200/day OMETEOROLOGICAL TECHNICIAN OMETEOROLOGICAL TECHNICIAN documented in this encounter Progress Notes * [...] leg. 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 ?? [...] GETACHEW Ramirez Diabetes Education and Nutritional Counseling OMETEOROLOGICAL TECHNICIAN documented in this encounter Plan of [...] (HCC) documented in this encounter Care Teams Logistics Service Representative Relationship Specialty Start Date End Date Elpidio Serrato MD PCP - General Internal Medicine 06/09/18 documented as of this encounter
--- OUTSIDE RECORDS SUMMARY | 2024-04-29 21:23 | XMS_ITS | Encounter Summary ---
Author Organization [facility] Address [address] [place] [address] Phone Care Team Providers Care Special Ed Assistant Name Role Phone Joaquin Melchor MD Primary Care Prov ider Encounter Details Date Type Department Care Team (Late st Contact Info) Description 12/09/2017 Orders Only [facility] Endocrinology Metabolism and Lipid [address] [facility] Advanced Medicine 13th [place] [address] [place] [address] Merna Bell MD [address] [facility] [address] [place] [address] Type 2 diabetes mellitus without complication, with long-term current use of insulin (CMS/HCC) (Primary Dx) Social History Tobacco Use Types Packs/Day Years Used Date Smoking Tobacco: Never Comments Unknown Sex and Gender Information Value Date Recorded Sex Assigned at Not on file Legal Sex Female 3:59 AM TERMITE INSPECTOR Gender Identity Female 05/13/2021 4:21 PM TERMITE INSPECTOR Sexual Orientation Not on file documented [...] Primary documented in this encounter Care Teams Special Ed Assistant Relationship Specialty Start Date End Date Joaquin Melchor MD [address] [place] [address] PCP - General 06/25/16 06/08/18 documented as of this encounter
--- OUTSIDE RECORDS SUMMARY | 2024-04-29 21:23 | XMS_ITS | Encounter Summary ---
Author Organization [facility] Address [address] [place] [address] Phone Care Team Providers Care Polisher Brass Name Role Phone Elpidio Serrato MD Primary Care Provider [phone] Reason for Referral * Diagnostic Imaging (Routine) - Closed Specialty Diagnoses / Procedures Referred By Constantino alvarado Referred To Contact Diagnoses Clavicle enlargement Procedures XR Clavicle Right Complete Merna Bell MD Phone: tel: fax: [address] [address] Referral ID Status Reason Start Date Expiration Date Visits Re quested Visits Authorized [id number] Closed 06/16/2018 12/26/2019 1 1 NT APPLICATION SUPPORT SPECIALIST Encounter Details Date Type Department Care Team (Latest Contact Info) Description 06/16/2018 9:20 AM CLIENT APPLICATION SUPPORT SPECIALIST Office Visit [facility] Endocrinology Metabolism and Lipid [address] [facility] 13th [place] [address] [place] [address] Merna Bell MD [address] [facility] [address] [place] [address] Type 2 diabetes mellitus with moderate nonproliferative [...] file Legal Sex Female 3:59 AM CLIENT APPLICATION SUPPORT SPECIALIST Gender Identity Female 05/13/2021 4:21 PM CLIENT APPLICATION SUPPORT SPECIALIST Sexual Orientation Not on file documented as of this encounter Last Filed Vital Signs Vital Sign Reading Time Taken Comments Blood Pressure 140/77 06/16/2018 9:51 AM CLIENT APPLICATION SUPPORT SPECIALIST Pulse 94 06/16/2018 9:51 AM CLIENT APPLICATION SUPPORT SPECIALIST Temperature - - Respiratory Rate - - Oxygen Saturation - - Inhaled Oxygen Concentration - - Weight 104.6 kg (230 lb 9.6 oz) 06/16/2018 9:51 AM CLIENT APPLICATION SUPPORT SPECIALIST Height 152.4 cm (5') 06/16/2018 9:51 AM CLIENT APPLICATION SUPPORT SPECIALIST Body Mass Index 45.04 06/16/2018 9:51 AM CLIENT APPLICATION SUPPORT SPECIALIST documented in this encounter Ordered Prescriptions Prescription [...] Dexcom CGM, and is meeting with GETACHEW Louis today for ongoing management advice. Her mean [...] (H) 64 - 99 mg/dL eGFR, Non -[place] 88.8 >60.0 mL/min/1.73 m2 eGFR, -[place] >90.0 >60.0 mL/min/1.73 m2 CBC with auto [...] PTH 46.1 12/09/2017 Type 2 diabetes mellitus ([facility]) Diabetes is improving with treatment. Continue current treatment regimen. but stop glimepiride; take insulin before eating and try not tomiss doses. See Monserrat Vann' note. Continue use of the CGM for safety. Diabetes will be reassessed in 6 months. Hyperlipidemia Lipid abnormalities are improving with treatment. LDL is 97 mg/dl. The patient was referred to the metallurgy teacher. and Pharmacotherapy as ordered. Lipids will be reassessed in 6 months. Hypothyroidism Thyroid functions are normal on current replacement, 88 mcg. No changes. Hypertension Hypertension is worsening, BP has increased to 140/77 mmHg. Continue current treatment regimen. Losartan/HCTZ. Blood pressure will be reassessed at the next regular appointment. Osteoarthritis of knee Follow-up with food safety specialist. Clavicle enlargement X-ray shows osteoarthritis with osteophytes. Odd, but does not need follow-up. Merna Bell MD 06/16/2018 9:20 PM NT APPLICATION SUPPORT SPECIALIST documented in this encounter Miscellaneous Notes * Assessment & Plan Note - Merna Bell MD - 06/16/2018 9:19 PM CLIENT APPLICATION SUPPORT SPECIALIST Associated Problem(s): Clavicle enlargement X-ray shows osteoarthritis with osteophytes. Odd, but does not need follow-up. NT APPLICATION SUPPORT SPECIALIST * Assessment & Plan Note - Merna Bell MD - 06/16/2018 9:19 PM CLIENT APPLICATION SUPPORT SPECIALIST Associated Problem(s): Osteoarthritis of knee Follow-up with food safety specialist. NT APPLICATION SUPPORT SPECIALIST * Assessment & Plan Note - Merna Bell MD - 06/16/2018 9:17 PM CLIENT APPLICATION SUPPORT SPECIALIST Associated Problem(s): Hypertension Hypertension is worsening, BP has increased to 140/77 mmHg. Continue current treatment regimen. Losartan/HCTZ. Blood pressure will be reassessed at the next regular appointment. NT APPLICATION SUPPORT SPECIALIST * Assessment & Plan Note - Merna Bell MD - 06/16/2018 9:17 PM CLIENT APPLICATION SUPPORT SPECIALIST Associated Problem(s): Hypothyroidism Thyroid functions are normal on current replacement, 88 mcg. No changes. NT APPLICATION SUPPORT SPECIALIST * Assessment & Plan Note - Merna Bell MD - 06/16/2018 9:16 PM CLIENT APPLICATION SUPPORT SPECIALIST Associated Problem(s): Hyperlipidemia Lipid abnormalities are improving with treatment. LDL is 97 mg/dl. The patient was referred to the metallurgy teacher. and Pharmacotherapy as ordered. Lipids will be reassessed in 6 months. NT APPLICATION SUPPORT SPECIALIST * Assessment & Plan Note - Merna Bell MD - 06/16/2018 9:15 PM CLIENT APPLICATION SUPPORT SPECIALIST Associated Problem(s): DM2 (diabetes mellitus, type 2) ([facility]) Diabetes is improving with treatment. Continue current treatment regimen. but stop glimepiride; take insulin before eating and try not tomiss doses. See Monserrat Vann' note. Continue use of the CGM for safety. Diabetes will be reassessed in 6 months. 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, with long-term current use of insulin, unspecified laterality (CMS/HCC) VITAMIN D 25 HYDROXY Routine 06/16/2018 11:02 AM CLIENT APPLICATION SUPPORT SPECIALIST 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, with long-term current use of insulin, unspecified laterality (CMS/HCC) TSH Routine 06/16/2018 11:02 AM CLIENT APPLICATION SUPPORT SPECIALIST Acquired hypothyroidism VITAMIN B12 Routine 06/16/2018 11:02 AM CLIENT APPLICATION SUPPORT SPECIALIST 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, with long-term current use of insulin, unspecified laterality (CMS/HCC) LIPID PANEL Routine 06/16/2018 11:02 AM CLIENT APPLICATION SUPPORT SPECIALIST 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, with long-term current use of insulin, unspecified laterality (CMS/HCC) COMPREHENSIVE METABOLIC PANEL Routine 06/16/2018 11:02 AM CLIENT APPLICATION SUPPORT SPECIALIST 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 Electronically signed by: Niranjan Phipps M.D. Narrative 06/16/2018 11:58 AM CLIENT APPLICATION SUPPORT SPECIALIST EXAMINATION: 1. ??Right clavicle complete HISTORY: ??Right [...] Vitamin D 25 hydroxy (06/16/2018 11:02 AM CLIENT APPLICATION SUPPORT SPECIALIST) Vitamin D 37.5 30.0 - 100.0 ng/mL [facility] Comment: VITAMIN D DEFICIENCY = LESS THAN 20 ng/mL) ? VITAMIN D INSUFFICIENCY = LESS THAN 30 ng/mL ? RECOMMENDED NORMAL RANGE = 30-100 ng/mL Blood specimen (specimen) 06/16/2018 11:02 AM CLIENT APPLICATION SUPPORT SPECIALIST 06/16/2018 12:11 PM CLIENT APPLICATION SUPPORT SPECIALIST Merna Bell MD LAB BLOOD ORDERABLES Final Re sult Performing Organization Address [facility] Co de Phone Number [facility] * Vitamin B12 (06/16/2018 11:02 AM CLIENT APPLICATION SUPPORT SPECIALIST) Vitamin B12 314 232 - 1,245 pg/mL [facility] Blood specimen (specimen) 06/16/2018 11:02 AM CLIENT APPLICATION SUPPORT SPECIALIST 06/16/2018 12:11 PM CLIENT APPLICATION SUPPORT SPECIALIST Merna Bell MD LAB BLOOD ORDERABLES Final Re sult Performing Organization Address [facility] de Phone Number [facility] * Microalbumin / creatinine ratio, urine, random (06/16/2018 11:02 AM CLIENT APPLICATION SUPPORT SPECIALIST) Microalb, Ur <7.0 0.0 - 22.9 mg/L [facility] Comment:Repeated and Verifie d Random Urine Creatinine 97.7 mg/dL [facility] Microalb/Creat Ratio <7.2 0.0 - 29.9 mg/g [facility] Urine 06/16/2018 11:0 2 AM CLIENT APPLICATION SUPPORT SPECIALIST 06/16/2018 12:11 PM CLIENT APPLICATION SUPPORT SPECIALIST Merna Bell MD LAB URINE ORDERABLES Final Re sult Performing Organization Address [facility] Co de Phone Number [facility] * Lipid panel (06/16/2018 11:02 AM CLIENT APPLICATION SUPPORT SPECIALIST) Triglycerides 130 0 - 149 mg/dL [facility] [...] [facility] Blood specimen (specimen) 06/16/2018 11:02 AM CLIENT APPLICATION SUPPORT SPECIALIST 06/16/2018 12:11 PM CLIENT APPLICATION SUPPORT SPECIALIST Narrative [facility] - 06/16/2018 1:39 PM CLIENT APPLICATION SUPPORT SPECIALIST These lab test should be done fasting. This means do not eat or drink for at least 12 hours prior to getting your blood drawn. Merna Bell MD LAB BLOOD ORDERABLES Final Re sult [facility] * TSH (06/16/2018 11:02 AM CLIENT APPLICATION SUPPORT SPECIALIST) Pathologist [facility] TSH (Thyrotropin) 1.70 0.50 - 5.00 uIU/mL [facility] Blood specimen (specimen) 06/16/2018 11:02 AM CLIENT APPLICATION SUPPORT SPECIALIST 06/16/2018 12:11 PM CLIENT APPLICATION SUPPORT SPECIALIST Merna Bell MD LAB BLOOD ORDERABLES Final Re sult Performing Organization Address [facility] Co de Phone Number [facility] * CBC with auto differential (06/16/2018 11:02 AM CLIENT APPLICATION SUPPORT SPECIALIST) Pathologist [facility] White Blood Count 8.3 3.6 - 11.2 [...] [facility] Blood specimen (specimen) 06/16/2018 11:02 AM CLIENT APPLICATION SUPPORT SPECIALIST 06/16/2018 12:11 PM CLIENT APPLICATION SUPPORT SPECIALIST us Merna Bell MD LAB BLOOD ORDERABLES Final Re sult [facility] * (ABNORMAL) Comprehensive metabolic panel (06/16/2018 11:02 AM CLIENT APPLICATION SUPPORT SPECIALIST) Total Protein 7.1 6.1 - 8.4 g/dL [...] = PROVISIONAL DIAGNOSIS OF DIABETES eGFR NON-AFR. [place] 88.8 >60.0 mL/min/1.7 3 m2 [facility] eGFR >90.0 >60.0 mL/min/1.7 3 m2 [facility] Blood specimen (specimen) 06/16/2018 11:02 AM CLIENT APPLICATION SUPPORT SPECIALIST 06/16/2018 12:11 PM CLIENT APPLICATION SUPPORT SPECIALIST us Merna Bell MD LAB BLOOD [...] documented as of this encounter Care Teams Polisher Brass Relationship Specialty Start Date End Date Elpidio Serrato MD PCP - General Internal Medicine 06/09/18 documented as of this encounter
--- OUTSIDE RECORDS SUMMARY | 2024-04-29 21:23 | XMS_ITS | Encounter Summary ---
Author Organization [facility] Address [address] [place] [address] Phone Care Team Providers Care Sheet Metal Assembler And Riveter Name Role Phone Elpidio Serrato MD Primary Care Provider [phone] Encounter Details Date Type Department Care Team (Latest Contact Info) Description 04/11/2019 Orders Only [facility] Endocrinology Metabolism and Lipid [address] 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 HET SETTER documented in this encounter Plan of [...] documented as of this encounter Care Teams Sheet Metal Assembler And Riveter Relationship Specialty Start Date End Date Elpidio Serrato MD PCP - General Internal Medicine 06/09/18 documented as of this encounter
--- OUTSIDE RECORDS SUMMARY | 2024-04-29 21:23 | XMS_ITS | Encounter Summary ---
Author Organization [facility] Address [address] [place] [address] Phone Care Team Providers Care Security Operations Manager Name Role Phone Joaquin Melchor MD Primary Care Prov ider Encounter Details Date Type Department Care Team (Late st Contact Info) Description 01/21/[address] [facility] Endocrinology Metabolism and Lipid [address] [facility] 13th [place] [address] [place] [address] Merna Bell MD [address] [facility] [address] [place], [place] [id number] Social History Tobacco Use Types Packs/Day Years Used Date Smoking Tobacco: Never Comments Unknown Sex and Gender Information Value Date Recorded Sex Assigned at Not on file Legal Sex Female 3:59 AM DISTRIBUTION DISTRICT SUPERVISOR Gender Identity Female 05/13/2021 4:21 PM DISTRIBUTION DISTRICT SUPERVISOR Sexual Orientation Not on file documented [...] KIM before she takes it, please call [phone] documented in this encounter Plan of Treatment Not on file documented as of this encounter Visit Diagnoses Not on filedocumented in this encounter Care Teams Security Operations Manager Relationship Specialty Start Date End Date Joaquin Melchor MD [address] [place] [address] PCP - General 06/25/16 06/08/18 documented as of this encounter
--- OUTSIDE RECORDS SUMMARY | 2024-04-29 21:23 | XMS_ITS | Encounter Summary ---
Author Organization [facility] Address [address] [place] [address] Phone Care Team Providers Care Neuroscience Specialist Name Role Phone Elpidio Serrato MD Primary Care Provider [phone] Encounter Details Date Type Department Care Team (Late st Contact Info) Description 04/20/2019 Orders Only [facility] Endocrinology Metabolism and Lipid [address] [facility] 5th [place] [address] [place] [address] Merna Bell MD [address] [facility] [address] [place] [address] Social History Tobacco Use Types Packs/Day Years Used Date Smoking Tobacco: Never Smokeless Tobacco: Never Comments Unknown Sex and Gender Information Value Date Recorded Sex Assigned at Not on file Legal Sex Female 3:59 AM SUPPORT TEACHER Gender Identity Female 05/13/2021 4:21 PM SUPPORT TEACHER Sexual Orientation Not on file documented as of this encounter Progress Notes * Merna Bell MD - 04/20/2019 6:21 PM CST I spoke to Isabelle re: Losartan/HCTZ. She had olmesartan/HCT in her possession, did not realize that it was the appropriate substitute. Problem solved for now. ORT TEACHER documented in this encounter Plan of Treatment Not on file documented as of this encounter Visit Diagnoses Not on filedocumented in this encounter Care Teams Neuroscience Specialist Relationship Specialty Start Date End Date Elpidio Serrato MD PCP - General Internal Medicine 06/09/18 documented as of this encounter
--- OUTSIDE RECORDS SUMMARY | 2024-04-29 21:23 | XMS_ITS | Encounter Summary ---
Author Organization [facility] Address [address] [place] [address] Phone Care Team Providers Care Surveillance Camera Technician Name Role Phone Elpidio Serrato MD Primary Care Provider [phone] Reason for Visit * Reason Onset Date Comments Prior Auth 12/26/2018 CELEBREX 200MG Encounter Details Date Type Department Care Team (Late st Contact Info) Description 12/26/2018 Telephone [facility] Endocrinology Metabolism and Lipid [address] [facility] 13th [place] [address] [place] [address] Brooklyn Dunbar RMA Prior Auth (CELEBREX 200MG) Social History Tobacco Use Types Packs/Day Years Used Date Smoking Tobacco: Never Smokeless Tobacco: Never Comments Unknown Sex and Gender Information Value Date Recorded Sex Assigned at Not on file Legal Sex Female 3:59 AM CLIENT SERVER DEVELOPER Gender Identity Female 05/13/2021 4:21 PM CLIENT SERVER DEVELOPER Sexual Orientation Not on file documented as of this encounter Miscellaneous Notes * Telephone Encounter - Brooklyn Dunbar MA - 12/26/2018 9:26 AM CDT MEDICATION PRIOR AUTHORIZATION FORM Date: 12/26/18 Patient Name: Isabelle Lutz : 1950 PROVIDER: NANCY DAVENPORT NPI: [id number] PRIMARY DIAGNOSIS: OSTEOARTHIRIS ICD-10 CODE: M17.10 RX BENEFIT CONCRETE BLOCK [place]: [employer] ID#: [id number] [facility]#: [phone] FAX#: [phone] DRUG INFORMATION: Requested Prescriptions No prescriptions requested or ordered in this encounter CELEBREX 200MG TABLET TAKE 1 TABLET DAILY #90 CAN THIS DRUG BE FILLED AT ANY PHARMACY?: yes DOES THIS DRUG REQUIRE THE USE OF A SPECIALTY PHARMACY?: no PHARMACY NAME: [facility] PHONE#: [phone] FAX#: [phone] AUTH#: [id number] EFFECTIVE: 11/26/18 EXPIRES: 12/26/19 NOTES: APPROVED Completed by: Brooklyn Dunbar MA documented in this encounter Plan of Treatment Not on file documented as of this encounter Visit Diagnoses Not on filedocumented in this encounter Care Teams Surveillance Camera Technician Relationship Specialty Start Date End Date Elpidio Serrato MD PCP - General Internal Medicine 06/09/18 documented as of this encounter
--- OUTSIDE RECORDS SUMMARY | 2024-04-29 21:23 | XMS_ITS | Encounter Summary ---
Author Organization [facility] Address [address] [place] [address] Phone Care Team Providers Care Roll Forming Machine Set Up Operator Name Role Phone Elpidio Serrato MD Primary Care Provider [phone] Encounter Details Date Type Department Care Team (Late st Contact Info) Description 04/23/2019 9:40 AM PATIENT SERVICES TECHNICIAN Imaging Exam [facility] Ophthalmology [address] [facility] 6th [place] [address] Primary open angle glaucoma (POAG) of both eyes, moderate stage Social History Tobacco Use Types Packs/Day Years Used Date Smoking Tobacco: Never Smokeless Tobacco: Never Comments Unknown Sex and Gender Information Value Date Recorded Sex Assigned at Not on file Legal Sex Female 3:59 AM PATIENT SERVICES TECHNICIAN Gender Identity Female 05/13/2021 4:21 PM PATIENT SERVICES TECHNICIAN Sexual Orientation Not on file documented as of this encounter Plan of Treatment Not on file documented as of this encounter Procedures Procedure Name Priority Date/Time Associated Diagnosis Comments OCT, OPTIC NERVE - OU - BOTH EYES Routine 04/23/2019 10:10 AM PATIENT SERVICES TECHNICIAN Primary open angle glaucoma (POAG) of both eyes, moderate stage FORREST VISUAL FIELD - OU - BOTH EYES Routine 04/23/2019 10:10 AM PATIENT SERVICES TECHNICIAN Primary open angle glaucoma (POAG) of both eyes, moderate stage documented in this encounter Results * OCT, Optic Nerve - OU - Both Eyes (04/23/2019 10:10 AM PATIENT SERVICES TECHNICIAN) RNFL OS 64 micrometers RNFL OD 64 micrometers Anatomical Region Laterality Modality Head Optical Coherenc e Tomography Narrative 04/23/2019 10:40 AM PATIENT SERVICES TECHNICIAN Right Eye Reliability was good. Temporal thickness [...] OU - Both Eyes (04/23/2019 10:10 AM PATIENT SERVICES TECHNICIAN) Mean Deviation OS -1.79 dB Mean Deviation OD -3.11 dB Pattern Deviation OS 3.59 dB Pattern Deviation OD 7.40 dB Anatomical Region Laterality Modality Head Visual Field Narrative 04/23/2019 10:38 AM PATIENT SERVICES TECHNICIAN Right Eye Fixation was good. Cooperation was [...] stage documented in this encounter Care Teams Roll Forming Machine Set Up Operator Relationship Specialty Start Date End Date Elpidio Serrato MD PCP - General Internal Medicine 06/09/18 documented as of this encounter
--- OUTSIDE RECORDS SUMMARY | 2024-04-29 21:23 | XMS_ITS | Encounter Summary ---
Author Organization [facility] Address [address] [place] [address] Phone Care Team Providers Care Bioinformatics Engineer Name Role Phone Elpidio Serrato MD Primary Care Provider [phone] Encounter Details Date Type Department Care Team (Late st Contact Info) Description 04/16/2019 Telephone [facility] Endocrinology Metabolism and Lipid [address] [facility] 13th [place] [address] [place] [address] Merna Bell MD [address] [facility] [address] [place] [address] Social History Tobacco Use Types Packs/Day Years Used Date Smoking Tobacco: Never Smokeless Tobacco: Never Comments Unknown Sex and Gender Information Value Date Recorded Sex Assigned at Not on file Legal Sex Female 3:59 AM ORACLE ETL DEVELOPER Gender Identity Female 05/13/2021 4:21 PM ORACLE ETL DEVELOPER Sexual Orientation Not on file documented as of this encounter Miscellaneous Notes * Telephone Encounter - Gerson Cuadra CMA - 04/21/2019 8:53 AM ORACLE ETL DEVELOPER The pharmacy states it won't be sent again. They see the other medication and it has been filled LE ETL DEVELOPER * Telephone Encounter - Merna Bell MD - 04/20/2019 6:30 PM CST I ordered olmesartan/HCTZ for Isabelle on 04/11. I called her, and she had it in her possession but did not realize that it was the appropriate substitute for losartan/HCTZ. LE ETL DEVELOPER * Telephone Encounter - Gerson Cuadra CMA - 04/16/2019 1:44 PM ORACLE ETL DEVELOPER [facility] [phone] Clarification: Need alternative for Losartan-HCTZ 100-25 Mg tab LE ETL DEVELOPER documented in this encounter Plan of Treatment Not on file documented as of this encounter Visit Diagnoses Not on filedocumented in this encounter Care Teams Bioinformatics Engineer Relationship Specialty Start Date End Date Elpidio Serrato MD PCP - General Internal Medicine 06/09/18 documented as of this encounter
--- OUTSIDE RECORDS SUMMARY | 2024-04-29 21:23 | XMS_ITS | Encounter Summary ---
Author Organization [facility] Address [address] [place] [address] Phone Care Team Providers Care Tool Turret Lathe Set Up Operator Name Role Phone Joaquin Melchor MD Primary Care Prov ider Encounter Details Date Type Department Care Team (Late st Contact Info) Description 12/09/2017 Orders Only [facility] Endocrinology Metabolism and Lipid [address] [facility] 13th [place] [address] [place] [phone] Ara Mathews RMA Social History Tobacco Use Types Packs/Day Years Used Date Smoking Tobacco: Never Comments Unknown Sex and Gender Information Value Date Recorded Sex Assigned at Not on file Legal Sex Female 3:59 AM PSYCHOLOGIST RESEARCH ASSISTANT Gender Identity Female 05/13/2021 4:21 PM PSYCHOLOGIST RESEARCH ASSISTANT Sexual Orientation Not on file documented [...] 05/20/2018 added in this encounter Care Teams Tool Turret Lathe Set Up Operator Relationship Specialty Start Date End Date Joaquin Melchor MD [address] [place] [address] PCP - General 06/25/16 06/08/18 documented as of this encounter
--- OUTSIDE RECORDS SUMMARY | 2024-04-29 21:23 | XMS_ITS | Encounter Summary ---
Author Organization [facility] Address [address] [place] [address] Phone Care Team Providers Care 21 Dealer Name Role Phone Joaquin Melchor MD Primary Care Prov ider Encounter Details Date Type Department Care Team (Late st Contact Info) Description 12/09/2017 Orders Only [facility] Endocrinology Metabolism and Lipid [address] [facility] 13th [place] [address] [place] [address] Merna Bell MD [address] [facility] [address] [place] [address] Social History Tobacco Use Types Packs/Day Years Used Date Smoking Tobacco: Never Comments Unknown Sex and Gender Information Value Date Recorded Sex Assigned at Not on file Legal Sex Female 3:59 AM RESOURCE AGENT Gender Identity Female 05/13/2021 4:21 PM RESOURCE AGENT Sexual Orientation Not on file documented as of this encounter Plan of Treatment Not on file documented as of this encounter Visit Diagnoses Not on filedocumented in this encounter Care Teams 21 Dealer Relationship Specialty Start Date End Date Joaquin Melchor MD [address] [place] [address] PCP - General 06/25/16 06/08/18 documented as of this encounter
--- OUTSIDE RECORDS SUMMARY | 2024-04-29 21:23 | XMS_ITS | Encounter Summary ---
Author Organization [facility] Address [address] [place] [address] Phone Care Team Providers Care Barber Shop Manager Name Role Phone Joaquin Melchor MD Primary Care Prov ider Encounter Details Date Type Department Care Team (Late st Contact Info) Description 12/09/2017 10:00 AM CDT Lab [facility] Endocrinology Metabolism and Lipid [address] [facility] 13th [place] [address] [place] [address] Hypothyroidism, unspecified type Social History Tobacco Use Types Packs/Day Years Used Date Smoking Tobacco: Never Comments Unknown Sex and Gender Information Value Date Recorded Sex Assigned at Not on file Legal Sex Female 3:59 AM WATCH COMMANDER Gender Identity Female 05/13/2021 4:21 PM WATCH COMMANDER Sexual Orientation Not on file documented as of this encounter Plan of Treatment Not on file documented as of this encounter Visit Diagnoses Diagnosis Hypothyroidism, unspecified type documented in this encounter Care Teams Barber Shop Manager Relationship Specialty Start Date End Date Joaquin Melchor MD [address] [place] [address] PCP - General 06/25/16 06/08/18 documented as of this encounter
--- OUTSIDE RECORDS SUMMARY | 2024-04-29 21:23 | XMS_ITS | Encounter Summary ---
Author Organization [facility] Address [address] [place] [address] Phone Care Team Providers Care Tugboat Dispatcher Name Role Phone Elpidio Serrato MD Primary Care Provider [phone] Encounter Details Date Type Department Care Team (Late st Contact Info) Description 06/16/2018 Orders Only [facility] Endocrinology Metabolism and Lipid [address] [facility] 13th [place] [address] [place] [address] Merna Bell MD [address] [facility] [address] [place] [address] Type 2 diabetes mellitus with complication, unspecified whether terminal carman insulin use (CMS/[facility]ER[facility]) (Primary Dx) Social History Tobacco Use Types Packs/Day Years Used Date Smoking Tobacco: Never Smokeless Tobacco: Never Comments Unknown Sex and Gender Information Value Date Recorded Sex Assigned at Not on file Legal Sex Female 3:59 AM FOOD TRAY ASSEMBLER Gender Identity Female 05/13/2021 4:21 PM FOOD TRAY ASSEMBLER Sexual Orientation Not on file documented as of this encounter Plan of Treatment Not on file documented as of this encounter Procedures Procedure Name Priority Date/Time Associated Diagnosis Comments POCT GLUCOSE Routine 06/16/2018 10:05 AM FOOD TRAY ASSEMBLER Type 2 diabetes mellitus with complication, unspecified whether terminal carman insulin use (CMS/HCC) POCT HEMOGLOBIN A1C Routine 06/16/2018 1 0:04 AM FOOD TRAY ASSEMBLER Type 2 diabetes mellitus with complication, unspecified whether terminal carman insulin use ([facility]) documented in this encounter Results * (ABNORMAL) POCT glucose (06/16/2018 10:05 AM FOOD TRAY ASSEMBLER) Glucose Blood, POC 197 mg/dL Blood specimen (specimen) 06/16/2018 10:05 AM FOOD TRAY ASSEMBLER Merna Bell MD POINT OF CARE TEST ORDERABLES Final Result * (ABNORMAL) POCT hemoglobin A1c (06/16/2018 10:04 AM FOOD TRAY ASSEMBLER) Hemoglobin A1C, POC 7.6 Blood specimen (specimen) 06/16/2018 10:04 AM FOOD TRAY ASSEMBLER us Merna Bell MD POINT OF CARE TEST ORDERABLES Final Result documented in this encounter Visit Diagnoses Diagnosis Type 2 diabetes mellitus with complication, unspecified whether terminal carman insulin use- Primary documented in this encounter Care Teams Tugboat Dispatcher Relationship Specialty Start Date End Date Elpidio Serrato MD PCP - General Internal Medicine 06/09/18 documented as of this encounter
--- OUTSIDE RECORDS SUMMARY | 2024-04-29 21:23 | XMS_ITS | Encounter Summary ---
Author Organization [facility] Address [address] [place] [address] Phone Care Team Providers Care Gold Wheel Blocker And Polisher Name Role Phone Elpidio Serrato MD Primary Care Provider [phone] Encounter Details Date Type Department Care Team (Late st Contact Info) Description 06/13/2018 Orders Only [facility] Endocrinology Metabolism and Lipid [address] [facility] 13th [place] [address] [place] [phone] Ara Mathews RMA Social History Tobacco Use Types Packs/Day Years Used Date Smoking Tobacco: Never Smokeless Tobacco: Never Comments Unknown Sex and Gender Information Value Date Recorded Sex Assigned at Not on file Legal Sex Female 3:59 AM SENIOR INSIGHT MANAGER Gender Identity Female 05/13/2021 4:21 PM SENIOR INSIGHT MANAGER Sexual Orientation Not on file documented [...] 03/31/2019 added in this encounter Care Teams Gold Wheel Blocker And Polisher Relationship Specialty Start Date End Date Elpidio Serrato MD PCP - General Internal Medicine 06/09/18 documented as of this encounter
--- OUTSIDE RECORDS SUMMARY | 2024-04-29 21:23 | XMS_ITS | Encounter Summary ---
Author Organization [facility] Address [address] [place] [address] Phone Care Team Providers Care Medical Transcriptionist Name Role Phone Joaquin Melchor MD Primary Care Prov ider Encounter Details Date Type Department Care Team (Late st Contact Info) Description 05/18/2018 Orders Only [facility] Endocrinology Metabolism and Lipid [address] [facility] 13th [place] [address] [place] [address] Merna Bell MD [address] [facility] [address] [place], [place] [id number] Social History Tobacco Use Types Packs/Day Years Used Date Smoking Tobacco: Never Comments Unknown Sex and Gender Information Value Date Recorded Sex Assigned at Not on file Legal Sex Female 3:59 AM TURNTABLE ENGINEER Gender Identity Female 05/13/2021 4:21 PM TURNTABLE ENGINEER Sexual Orientation Not on file documented [...] as of this encounter Care Teams Medical Transcriptionist Relationship Specialty Start Date End Date Joaquin Melchor MD [address] [place] [address] PCP - General 06/25/16 06/08/18 documented as of this encounter
--- OUTSIDE RECORDS SUMMARY | 2024-04-29 21:23 | XMS_ITS | Encounter Summary ---
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 She is [...] Primary documented in this encounter Care Teams Deputy General Counsel Relationship Specialty Start Date End Date Joaquin Melchor MD [address] [place] [address] PCP - General 06/25/16 06/08/18 documented as of this encounter
--- OUTSIDE RECORDS SUMMARY | 2024-04-29 21:23 | XMS_ITS | Encounter Summary ---
Author Organization [facility] Address [address] [place] [address] Care Team Providers Care Banking Management Consulting Manager Name Role Phone Elpidio Serrato MD Primary Care Provider [phone] Reason for Referral * Diagnostic Imaging (Routine) - Closed Specialty Diagnoses / Procedures Referred By Constantino alvarado Referred To Contact Diagnoses Clavicle enlargement Procedures XR Clavicle Right Complete Merna Bell MD Phone: tel: fax: [address] [address] Referral ID Status Reason Start Date Expiration Date Visits Re quested Visits Authorized [id number] Closed 06/16/2018 12/26/2019 1 1 PACKAGER Reason for Visit * Diagnostic Imaging (Routine) - Closed Specialty Diagnoses / Procedures Referred By Constantino alvarado Referred To Contact Diagnoses Clavicle enlargement Procedures XR Clavicle Right Complete Merna Bell MD Phone: tel: fax: [address] [address] Referral ID Status Reason Start Date Expiration Date Visits Re quested Visits Authorized Closed 06/16/2018 12/26/2019 1 1 Encounter Details Date Type Department Care Team (Latest Contact Info) Description 06/16/2018 11:27 AM HEAD PACKAGER - 06/16/2018 11:59 PM HEAD PACKAGER Hospital Encounter [facility] [address] [place] [address] Merna Bell MD [address] [facility] [address] [place] [address] Clavicle enlargement Discharge Disposition: Discharge to home or self care Social History Tobacco Use Types Packs/Day Years Used Date Smoking Tobacco: Never Smokeless Tobacco: Never Comments Unknown Sex and Gender Information Value Date Recorded Sex Assigned at Not on file Legal Sex Female 3:59 AM HEAD PACKAGER Gender Identity Female 05/13/2021 4:21 PM HEAD PACKAGER Sexual Orientation Not on file documented as [...] Read Routine (OP Routine) 06/16/2018 11:56 AM HEAD PACKAGER Clavicle enlargement documented in this encounter Results * XR Clavicle Right Complete (06/16/2018 11:56 AM HEAD PACKAGER) Anatomical Region Laterality Modality Clavicle, Chest Right Computed Radiogr aphy 06/16/2018 11:5 8 AM HEAD PACKAGER Impressions 06/16/2018 11:58 AM HEAD PACKAGER 1. 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 Electronically signed by: Niranjan Phipps M.D. Narrative 06/16/2018 11:58 AM HEAD PACKAGER EXAMINATION: 1. ??Right clavicle complete HISTORY: ??Right [...] cartilage documented in this encounter Care Teams Banking Management Consulting Manager Relationship Specialty Start Date End Date Elpidio Serrato MD PCP - General Internal Medicine 06/09/18 documented as of this encounter
--- OUTSIDE RECORDS SUMMARY | 2024-04-29 21:23 | XMS_ITS | Encounter Summary ---
Author Organization [facility] Address [address] [place] [address] Phone Care Team Providers Care Senior Windows Systems Administrator Name Role Phone Elpidio Serrato MD Primary Care Provider [phone] Reason for Visit * Diagnostic Lab (Routine) - Closed Specialty Diagnoses / Procedures Referred By Constantino alvarado Referred To Contact Lab Diagnoses [id number] Procedures SPECIMEN COLLECTION Merna Bell MD Phone: tel: fax: [facility] Endocrinology Metabolism and Lipid [address] [facility] 13th [place] [address] [place] [address] Phone: tel: fax: Referral ID Status Reason Start Date Expiration Date Visits Re quested Visits Authorized [id number] Closed 06/16/2018 12/26/2019 99 99 Encounter Details Date Type Department Care Team (Late st Contact Info) Description 06/16/2018 11:45 AM FEED MILL TENDER Lab [facility] Endocrinology Metabolism and Lipid [address] [facility] 13th [place] [address] [place] [address] 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, with long-term current use of insulin, unspecified laterality (CMS/HCC); Acquired hypothyroidism Social History Tobacco Use Types Packs/Day Years Used Date Smoking Tobacco: Never Smokeless Tobacco: Never Comments Unknown Sex and Gender Information Value Date Recorded Sex Assigned at Not on file Legal Sex Female 3:59 AM FEED MILL TENDER Gender Identity Female 05/13/2021 4:21 PM FEED MILL TENDER Sexual Orientation Not on file documented as of this encounter Plan of Treatment Not on file documented as of this encounter Visit Diagnoses Diagnosis 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
--- OUTSIDE RECORDS SUMMARY | 2024-04-29 21:23 | XMS_ITS | Encounter Summary ---
Author Organization [facility] Address [address] [place] [address] Phone Care Team Providers Care Electronics Warfare Technician Name Role Phone Joaquin Melchor MD Primary Care Prov ider Encounter Details Date Type Department Care Team (Late st Contact Info) Description 12/13/2017 Documentation [facility] Endocrinology Metabolism and Lipid [address] [facility] 5th [place] [address] [place] [address] Desiree Rodriguez MD [address] [facility] [address] [place], [place] [id number] Social History Tobacco Use Types Packs/Day Years Used Date Smoking Tobacco: Never Comments Unknown Sex and Gender Information Value Date Recorded Sex Assigned at Not on file Legal Sex Female 3:59 AM VOLTAGE TESTER Gender Identity Female 05/13/2021 4:21 PM VOLTAGE TESTER Sexual Orientation Not on file documented [...] on filedocumented in this encounter Care Teams Electronics Warfare Technician Relationship Specialty Start Date End Date Joaquin Melchor MD [address] [place] [address] PCP - General 06/25/16 06/08/18 documented as of this encounter
--- OUTSIDE RECORDS SUMMARY | 2024-04-29 21:23 | XMS_ITS | Encounter Summary ---
Author Organization [facility] Address [address] [place] [address] Phone Care Team Providers Care Metal Bonding Press Operator Name Role Phone Elpidio Serrato MD Primary Care Provider [phone] Encounter Details Date Type Department Care Team (Latest Contact Info) Description 10/17/2018 1:00 PM CDT Office Visit [facility] Ophthalmology [facility] [place] [address] Niranjan Thomas MD [address] [facility] [place], [place] [id number] Primary open angle glaucoma (POAG) of both [...] on file Legal Sex Female 3:59 AM OTOLARYNGOLOGY SURGEON Gender Identity Female 05/13/2021 4:21 PM OTOLARYNGOLOGY SURGEON Sexual Orientation Not on file documented as [...] & Plan: [place] 6 [place] IOP check. Pressures [...] & Plan: Dr. Sue patient [place] 6 week IOP check. Pressures [...] CDTAssociated Problem(s): DM2 (diabetes mellitus, type 2) ([facility]) Stressed tight BS control. No DFE today. [...] spokes Anterior Vitreous Normal Normal Care Teams Metal Bonding Press Operator Relationship Specialty Start Date End Date Elpidio Serrato MD PCP - General Internal Medicine 06/09/18 documented as of this encounter
--- OUTSIDE RECORDS SUMMARY | 2024-04-29 21:23 | XMS_ITS | Encounter Summary ---
Author Organization [facility] Address [address] [place] [address] Phone Care Team Providers Care Java Android Developer Name Role Phone Joaquin Melchor MD Primary Care Prov ider Encounter Details Date Type Department Care Team (Late st Contact Info) Description 01/20/2018 Telephone [facility] Endocrinology Metabolism and Lipid [address] [facility] 13th [place] [address] [place] [address] Merna Bell MD [address] [facility] [address] [place], [place] [id number] Social History Tobacco Use Types Packs/Day Years Used Date Smoking Tobacco: Never Comments Unknown Sex and Gender Information Value Date Recorded Sex Assigned at Not on file Legal Sex Female 3:59 AM ALUMINUM POURER Gender Identity Female 05/13/2021 4:21 PM ALUMINUM POURER Sexual Orientation Not on file documented as [...] on filedocumented in this encounter Care Teams Java Android Developer Relationship Specialty Start Date End Date Joaquin Melchor MD [address] [place] [address] PCP - General 06/25/16 06/08/18 documented as of this encounter
--- OUTSIDE RECORDS SUMMARY | 2024-04-29 21:23 | XMS_ITS | Encounter Summary ---
Author Organization [facility] Address [address] [place] [address] Phone Care Team Providers Care Chairman Of The Board Name Role Phone Elpidio Serrato MD Primary Care Provider [phone] Encounter Details Date Type Department Care Team (Late st Contact Info) Description 06/26/2018 Telephone [facility] Endocrinology Metabolism and Lipid [address] [facility] 13th [place] [address] [place] [address] Malika Carter RN Social History Tobacco Use Types Packs/Day Years Used Date Smoking Tobacco: Never Smokeless Tobacco: Never Comments Unknown Sex and Gender Information Value Date Recorded Sex Assigned at Not on file Legal Sex Female 3:59 AM COURTESY CLERK Gender Identity Female 05/13/2021 4:21 PM COURTESY CLERK Sexual Orientation Not on file documented as of this encounter Miscellaneous Notes * Telephone Encounter - Malika Carter RN - 07/01/2018 5:31 PM COURTESY CLERK Created in error. TESY CLERK documented in this encounter Plan of Treatment Not on file documented as of this encounter Visit Diagnoses Not on filedocumented in this encounter Care Teams Chairman Of The Board Relationship Specialty Start Date End Date Elpidio Serrato MD PCP - General Internal Medicine 06/09/18 documented as of this encounter
--- OUTSIDE RECORDS SUMMARY | 2024-04-29 21:23 | XMS_ITS | Encounter Summary ---
Author Organization [facility] [employer] [facility] Address [address] [place] [address] Phone Care Team Providers Care Itinerant Teacher Assistant Name Role Phone Elpidio Serrato MD Primary Care Provider [phone] Encounter Details Date Type Department Care Team (Late st Contact Info) Description 03/31/2019 3:40 PM SENIOR BUSINESS MANAGER Lab [facility] Endocrinology Metabolism and Lipid [address] 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, with long-term current use of insulin, unspecified laterality (CMS/HCC) Social History Tobacco Use Types Packs/Day Years Used Date Smoking Tobacco: Never Smokeless Tobacco: Never Comments Unknown Sex and Gender Information Value Date Recorded Sex Assigned at Not on file Legal Sex Female 3:59 AM SENIOR BUSINESS MANAGER Gender Identity Female 05/13/2021 4:21 PM SENIOR BUSINESS MANAGER Sexual Orientation Not on file documented as of this encounter Plan of Treatment Not on file documented as of this encounter Procedures Procedure Name Priority Date/Time Associated Diagnosis Comments CBC WITH AUTO DIFFERENTIAL Routine 03/31/2019 3:37 PM SENIOR BUSINESS MANAGER 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, with long-term current use of insulin, unspecified laterality (CMS/HCC) ALBUMIN CREATININE RATIO, URINE Routine 03/31/2019 3:37 PM SENIOR BUSINESS MANAGER 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, with long-term current use of insulin, unspecified laterality (CMS/HCC) TSH Routine 03/31/2019 3:37 PM SENIOR BUSINESS MANAGER 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, with long-term current use of insulin, unspecified laterality (CMS/HCC) LIPID PANEL Routine 03/31/2019 3:37 PM SENIOR BUSINESS MANAGER 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 [place] 53.8(L) >60.0 mL/min/1.7 3 m2 [facility] eGFR 62.3 >60.0 mL/min/1.7 3 m2 [facility] Blood specimen (specimen) 03/31/2019 3:37 PM SENIOR BUSINESS MANAGER 03/31/2019 4:04 PM SENIOR BUSINESS MANAGER us Merna Bell MD LAB BLOOD ORDERABLES Final Re sult [facility] * CBC with auto differential (03/31/2019 3:37 PM SENIOR BUSINESS MANAGER) White Blood Count 9.8 3.6 - [...] [facility] Blood specimen (specimen) 03/31/2019 3:37 PM SENIOR BUSINESS MANAGER 03/31/2019 4:04 PM SENIOR BUSINESS MANAGER Merna Bell MD LAB BLOOD ORDERABLES Final Re sult [facility] * TSH (03/31/2019 3:37 PM SENIOR BUSINESS MANAGER) TSH (Thyrotropin) 2.62 0.27 - 4.20 uIU/mL [facility] Comment:* Please note update d reference range for TSH effective 07/17/18 * Blood specimen (specimen) 03/31/2019 3:37 PM SENIOR BUSINESS MANAGER 03/31/2019 4:04 PM SENIOR BUSINESS MANAGER Merna Bell MD LAB BLOOD ORDERABLES Final Re sult Performing Organization Address City/[facility] Co de Phone Number [facility] * (ABNORMAL) Lipid panel (03/31/2019 3:37 PM SENIOR BUSINESS MANAGER) Triglycerides 186(H) 0 - 149 mg/dL [...] mg/dL Blood specimen (specimen) 03/31/2019 3:37 PM SENIOR BUSINESS MANAGER 03/31/2019 4:04 PM SENIOR BUSINESS MANAGER Merna Bell MD LAB BLOOD ORDERABLES Final Re sult Performing Organization Address [facility] de Phone Number [facility] * (ABNORMAL) Albumin Creatinine Ratio, Urine (03/31/2019 3:37 PM SENIOR BUSINESS MANAGER) Microalb, Ur 27.3(H) 0.0 - 22.9 mg/L [facility] Random Urine Creatinine 271.8 mg/dL [facility] Microalb/Creat Ratio 10.0 0.0 - 29.9 mg/g [facility] Urine 03/31/2019 3:37 PM SENIOR BUSINESS MANAGER 03/31/2019 4:04 PM SENIOR BUSINESS MANAGER Merna Bell MD LAB URINE ORDERABLES Final Re sult Performing Organization Address City/State/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
--- OUTSIDE RECORDS SUMMARY | 2024-04-29 21:23 | XMS_ITS | Encounter Summary ---
Author Organization [facility] Address [address] [place] [address] Phone Care Team Providers Care Bilingual Inside Sales Representative Name Role Phone Elpidio Serrato MD Primary Care Provider [phone] Encounter Details Date Type Department Care Team (Late st Contact Info) Description 09/01/2018 10:15 AM CDT Office Visit [facility] Ophthalmology [address] [place] [address] [place] [phone] Kaushik Sue MD [address] [place] [address] [place] [address] Primary open angle glaucoma (POAG) of both eyes, moderate stage (Primary Dx) Social History Tobacco Use Types Packs/Day Years Used Date Smoking Tobacco: Never Smokeless Tobacco: Never Comments Unknown Sex and Gender Information Value Date Recorded Sex Assigned at Not on file Legal Sex Female 3:59 AM DIRECTOR OF HOME ECONOMICS Gender Identity Female 05/13/2021 4:21 PM DIRECTOR OF HOME ECONOMICS Sexual Orientation Not on file documented as [...] Nuclear sclerosis Vitreous Normal Normal Care Teams Bilingual Inside Sales Representative Relationship Specialty Start Date End Date Elpidio Serrato MD PCP - General Internal Medicine 06/09/18 documented as of this encounter
--- OUTSIDE RECORDS SUMMARY | 2024-04-29 21:23 | XMS_ITS | Encounter Summary ---
Author Organization [facility] Address [address] [place] [address] Phone Care Team Providers Care Sanitation Laborer Name Role Phone Joaquin Melchor MD Primary Care Prov ider Encounter Details Date Type Department Care Team (Late st Contact Info) Description 02/20/2018 Telephone [facility] Endocrinology Metabolism and Lipid [address] [facility] 13th [place] [address] [place] [address] Merna Bell MD [address] [facility] [facility] [address] [place], [place] [id number] Social History Tobacco Use Types Packs/Day Years Used Date Smoking Tobacco: Never Comments Unknown Sex and Gender Information Value Date Recorded Sex Assigned at Not on file Legal Sex Female 3:59 AM SPECIALIST PHYSICIAN Gender Identity Female 05/13/2021 4:21 PM SPECIALIST PHYSICIAN Sexual Orientation Not on file documented as of this encounter Miscellaneous Notes * Telephone Encounter - Kasey Grimaldo MA - 02/20/2018 10:52 AM CDT Pt called and lvm stating she would like to speak with you, please call documented in this encounter Plan of Treatment Not on file documented as of this encounter Visit Diagnoses Not on filedocumented in this encounter Care Teams Sanitation Laborer Relationship Specialty Start Date End Date Joaquin Melchor MD [address] [place] [address] PCP - General 06/25/16 06/08/18 documented as of this encounter
--- OUTSIDE RECORDS SUMMARY | 2024-04-29 21:23 | XMS_ITS | Encounter Summary ---
Author Organization [facility] Address [address] [place] [address] Phone Care Team Providers Care Patent Solicitor Name Role Phone Elpidio Serrato MD Primary Care Provider [phone] Encounter Details Date Type Department Care Team (Late st Contact Info) Description 12/03/2018 Documentation [facility] Endocrinology Metabolism and Lipid [address] [facility] Medicine 13th Floor [address] [phone] Gerson Cuadra CMA Social History Tobacco Use Types Packs/Day Years Used Date Smoking Tobacco: Never Smokeless Tobacco: Never Comments Unknown Sex and Gender Information Value Date Recorded Sex Assigned at Not on file Legal Sex Female 3:59 AM COMMERCIAL ENGINEER Gender Identity Female 05/13/2021 4:21 PM COMMERCIAL ENGINEER Sexual Orientation Not on file documented as of this encounter Progress Notes * Gerson Cuadra MA - 12/03/2018 3:38 PM CDT FAXED LMN TO [facility] ON 12-01-18 AT [phone] documented in this encounter Plan of Treatment Not on file documented as of this encounter Visit Diagnoses Not on filedocumented in this encounter Care Teams Patent Solicitor Relationship Specialty Start Date End Date Elpidio Serrato MD PCP - General Internal Medicine 06/09/18 documented as of this encounter
--- OUTSIDE RECORDS SUMMARY | 2024-04-29 21:23 | XMS_ITS | Encounter Summary ---
Author Organization [facility] Address [address] [place] [address] Phone Care Team Providers Care Bath House Attendant Name Role Phone Elpidio Serrato MD Primary Care Provider [phone] Reason for Referral * Procedure (Routine) - Closed Specialty Diagnoses / Procedures Referred By Constantino alvarado Referred To Contact Diagnoses Primary open angle glaucoma (POAG) of both eyes, moderate stage Procedures Laser Trabeculoplasty Selective - OD - Right Eye Niranjan Thomas MD [address] [address] Phone: tel: fax: [facility] (All Locations) Referral ID Status Reason Start Date Expiration Date Visits Re quested Visits Authorized [id number] Closed 04/23/2019 11/01/2020 1 1 OOD LAYUP LINE CORE LAYER Encounter Details Date Type Department Care Team (Late st Contact Info) Description 04/23/2019 10:30 AM PLYWOOD LAYUP LINE CORE LAYER Office Visit [facility] Ophthalmology [address] [place] [address] [place] [address] Niranjan Thomas MD [address] [address] Primary open angle glaucoma (POAG) of both eyes, moderate stage (Primary Dx); Nuclear sclerotic cataract of both eyes Social History Tobacco Use Types Packs/Day Years Used Date Smoking Tobacco: Never Smokeless Tobacco: Never Comments Unknown Sex and Gender Information Value Date Recorded Sex Assigned at Not on file Legal Sex Female 3:59 AM PLYWOOD LAYUP LINE CORE LAYER Gender Identity Female 05/13/2021 4:21 PM PLYWOOD LAYUP LINE CORE LAYER Sexual Orientation Not on file documented as of this encounter Patient Instructions * Patient Instructions* Niranjan Thomas MD - 04/23/2019 10:30 AM PLYWOOD LAYUP LINE CORE LAYER Dilation instructions Please refer to your Dilating Eyedrops brochure for instructions regarding dilation. OOD LAYUP LINE CORE LAYER documented in this encounter Ordered Prescriptions Prescription [...] 1 month (around 05/24/2019) for SLT Laser. OOD LAYUP LINE CORE LAYER documented in this encounter Miscellaneous Notes * Assessment & Plan Note - Niranjan Thomas MD - 04/23/2019 10:45 AM PLYWOOD LAYUP LINE CORE LAYER Associated Problem(s): Pseudophakia of both eyes HALLEY Joseph scribing for and in the presence of Niranjan Thomas MD OOD LAYUP LINE CORE LAYER * Assessment & Plan Note - Michelle [...] Drops: Combigan BID OU Latanoprost QHS OD OOD LAYUP LINE CORE LAYER OOD LAYUP LINE CORE LAYER OOD LAYUP LINE CORE LAYER OOD LAYUP LINE CORE LAYER OOD LAYUP LINE CORE LAYER documented in this encounter Plan of Treatment Not on file documented as of this encounter Results * Laser Trabeculoplasty Selective - OD - Right Eye (05/28/2019 11:14 AM PLYWOOD LAYUP LINE CORE LAYER) Anatomical Region Laterality Modality Head Laser Room Narrative 05/28/2019 11:14 AM PLYWOOD LAYUP LINE CORE LAYER Time Out Informed consent was obtained after [...] Normal Normal Periphery Normal Normal Care Teams Bath House Attendant Relationship Specialty Start Date End Date Elpidio Serrato MD PCP - General Internal Medicine 06/09/18 documented as of this encounter
--- OUTSIDE RECORDS SUMMARY | 2024-04-29 21:23 | XMS_ITS | Encounter Summary ---
Author Organization [facility] Address [address] [place] [address] Phone Care Team Providers Care Hot Plate Plywood Press Operator Name Role Phone Elpidio Serrato MD Primary Care Provider [phone] Encounter Details Date Type Department Care Team (Latest Contact Info) Description 09/15/2018 10:40 AM CDT Office Visit [facility] Endocrinology Metabolism and Lipid [address] [facility] 13th [place] [address] [place] [address] Merna Bell MD [address] [facility] [address] [place] [address] Type 2 diabetes mellitus with moderate nonproliferative [...] on file Legal Sex Female 3:59 AM SYSTEM OPERATOR Gender Identity Female 05/13/2021 4:21 PM SYSTEM OPERATOR Sexual Orientation Not on file documented [...] Pharmacotherapy as ordered. Restructure the plan after shelter in November. Type 2 diabetes mellitus ([facility]) Diabetes is worsening. Medication changes per orders. [...] Problem(s): DM2 (diabetes mellitus, type 2) ([facility]) Diabetes is worsening. Medication changes per orders. [...] Pharmacotherapy as ordered. Restructure the plan after shelter in November. documented in this encounter Plan [...] (HCC) documented in this encounter Care Teams Hot Plate Plywood Press Operator Relationship Specialty Start Date End Date Elpidio Serrato MD PCP - General Internal Medicine 06/09/18 documented as of this encounter
--- OUTSIDE RECORDS SUMMARY | 2024-04-29 21:23 | XMS_ITS | Encounter Summary ---
Author Organization [facility] Address [address] [place] [address] Phone Care Team Providers Care Staffing Clerk Name Role Phone Elpidio Serrato MD Primary Care Provider [phone] Encounter Details Date Type Department Care Team (Late st Contact Info) Description 06/09/2018 8:30 AM GOLF PROFESSIONAL Office Visit [facility] Ophthalmology [address] [place] [address] [place] [phone] Kaushik Sue MD [address] [place] [phone] Primary open angle glaucoma of both eyes, unspecified glaucoma stage (Primary Dx); Nonproliferative diabetic retinopathy (CMS/HCC); Nuclear sclerotic cataract of both eyes Social History Tobacco Use Types Packs/Day Years Used Date Smoking Tobacco: Never Smokeless Tobacco: Never Comments Unknown Sex and Gender Information Value Date Recorded Sex Assigned at Not on file Legal Sex Female 3:59 AM GOLF PROFESSIONAL Gender Identity Female 05/13/2021 4:21 PM GOLF PROFESSIONAL Sexual Orientation Not on file documented as of this encounter Patient Instructions * Patient Instructions* Kaushik Sue MD - 06/09/2018 8:30 AM GOLF PROFESSIONAL Dilation instructions Please refer to your Dilating Eyedrops brochure for instructions regarding dilation. PROFESSIONAL documented in this encounter Ordered Prescriptions Prescription [...] diabetes mellitus (DM)- tight bs control 2m PROFESSIONAL documented in this encounter Plan of Treatment Not on file documented as of this encounter Procedures Procedure Name Priority Date/Time Associated Diagnosis Comments FORREST VISUAL FIELD - OU - BOTH EYES Routine 06/09/2018 8:55 AM GOLF PROFESSIONAL Primary open angle glaucoma of both eyes, unspecified glaucoma stage documented in this encounter Results * Forrest Visual Field - OU - Both Eyes (06/09/2018 8:55 AM GOLF PROFESSIONAL) Anatomical Region Laterality Modality Head Visual Field Narrative 06/09/2018 9:22 AM GOLF PROFESSIONAL Right Eye Fixation was good. Cooperation was [...] Periphery Normal Normal Wearing Rx Sphere Cylinder [place] Add Right eye -3.25 +1.00 165 +2.50 Left eye -3.25 +0.75 025 +2.50 Age: 2+ years Type: FT28 Manifest Refraction Sphere Cylinder [place] Dist [place] Add Right eye -3.25 +1.00 165 20/20 +2.50 Left eye -2.75 +0.75 025 20/20-2 +2.50 Final Rx Sphere Cylinder [place] Dist [place] Add Right eye -3.25 +1.00 165 20/20 +2.50 Left eye -2.75 +0.75 025 20/20-2 +2.50 Care Teams Staffing Clerk Relationship Specialty Start Date End Date Elpidio Serrato MD PCP - General Internal Medicine 06/09/18 documented as of this encounter
--- OUTSIDE RECORDS SUMMARY | 2024-04-29 21:23 | XMS_ITS | Encounter Summary ---
Author Organization [facility] Address [address] [place] [address] Phone Care Team Providers Care Transmission Line Engineer Name Role Phone Elpidio Serrato MD Primary Care Provider [phone] Encounter Details Date Type Department Care Team (Latest Contact Info) Description 03/31/2019 1:50 PM LABOR RELATIONS ANALYST Office Visit [facility] Endocrinology Metabolism and Lipid 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, with long-term current use of insulin, unspecified laterality (CMS/HCC) (Primary Dx) Social History Tobacco Use Types Packs/Day Years Used Date Smoking Tobacco: Never Smokeless Tobacco: Never Comments Unknown Sex and Gender Information Value Date Recorded Sex Assigned at Not on file Legal Sex Female 3:59 AM LABOR RELATIONS ANALYST Gender Identity Female 05/13/2021 4:21 PM LABOR RELATIONS ANALYST Sexual Orientation Not on file documented as of this encounter Last Filed Vital Signs Vital Sign Reading Time Taken Comments Blood Pressure 113/71 03/31/2019 1:41 PM LABOR RELATIONS ANALYST Pulse 85 03/31/2019 1:41 PM LABOR RELATIONS ANALYST Temperature 36.5 ??C (97.7 ??F) 03/31/2019 1:41 PM CS T Respiratory Rate - - Oxygen Saturation - - Inhaled Oxygen Concentration - - Weight 105.3 kg (232 lb 3.2 oz) 03/31/2019 1:41 PM LABOR RELATIONS ANALYST Height 152.4 cm (5') 03/31/2019 1:41 PM LABOR RELATIONS ANALYST Body Mass Index 45.35 03/31/2019 1:41 PM LABOR RELATIONS ANALYST documented in this encounter Ordered Prescriptions Prescription [...] 46.1 12/09/2017 Assessment/Plan: Type 2 diabetes mellitus (CMS/[facility]) Diabetes is worsening. Increase Lantus to 50 [...] is unchanged. She is less active after prison. Discussed the patient's BMI. The BMI is [...] Merna Bell MD at 04/01/2019 6:18 PM LABOR RELATIONS ANALYST R RELATIONS ANALYST R RELATIONS ANALYST Associated attestation - Merna Bell MD - 04/01/2019 6:18 PM LABOR RELATIONS ANALYST I have seen and examined the patient. I agree with the findings and plan of care as documented in the resident/fellow's note. documented in this encounter Miscellaneous Notes * Assessment & Plan Note - Alex Penn MD - 04/01/2019 11:30 AM LABOR RELATIONS ANALYST Associated Problem(s): Vitamin D deficiency Levels normal 06/2018. Continue weekly ergocalciferol R RELATIONS ANALYST R RELATIONS ANALYST * Assessment & Plan Note - Alex Penn MD - 04/01/2019 11:29 AM LABOR RELATIONS ANALYST Associated Problem(s): Obesity Obesity is unchanged. She is less active after prison. Discussed the patient's BMI. The BMI is too high, and is causing serious morbidities. . General weight loss/lifestyle modification strategies discussed (elicit support from others; identify saboteurs; non-food rewards, etc). Pharmacotherapy as ordered. Given bilateral knee pain, recommended water based exercises R RELATIONS ANALYST * Assessment & Plan Note - Alex Penn MD - 04/01/2019 11:28 AM LABOR RELATIONS ANALYST Associated Problem(s): Hyperlipidemia Lipid abnormalities are improving with treatment. LDL is 47 in 06/2018. Continue simvastatin 40 mg daily Lipids will be reassessed in 6 months. R RELATIONS ANALYST * Assessment & Plan Note - Alex Penn MD - 04/01/2019 11:26 AM LABOR RELATIONS ANALYST Associated Problem(s): Hypothyroidism Continue current replacement, 88 mcg. Will check TSH today R RELATIONS ANALYST R RELATIONS ANALYST * Assessment & Plan Note - Alex Penn MD - 04/01/2019 11:23 AM LABOR RELATIONS ANALYST Associated Problem(s): DM2 (diabetes mellitus, type 2) ([facility]) Diabetes is worsening. Increase Lantus to 50 units; reduce carbs to <40 grams per meal. Continue metformin, Victoza, and humalog at same doses. Check CBC, CMP, Lipid panel, and alb cr ratio (urine) today Diabetes will be reassessed in 5 months. 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, with long-term current use of insulin, unspecified laterality (CMS/HCC) documented in this encounter Results * (ABNORMAL) Albumin Creatinine Ratio, Urine (03/31/2019 3:37 PM LABOR RELATIONS ANALYST) Microalb, Ur 27.3(H) 0.0 - 22.9 mg/L [facility] Random Urine Creatinine 271.8 mg/dL [facility] Microalb/Creat Ratio 10.0 0.0 - 29.9 mg/g [facility] Urine 03/31/2019 3:37 PM LABOR RELATIONS ANALYST 03/31/2019 4:04 PM LABOR RELATIONS ANALYST us Merna Bell MD LAB URINE ORDERABLES Final Re kevint Performing Organization Address City/[facility] Co de Phone Number [facility] * (ABNORMAL) Lipid panel (03/31/2019 3:37 PM LABOR RELATIONS ANALYST) Triglycerides 186(H) 0 - 149 mg/dL [facility] [...] Total HDL-C Direct 50 >39 mg/dL [facility] Comment: NATIONAL CHOLESTEROL EDUCATION [...] mg/dL Blood specimen (specimen) 03/31/2019 3:37 PM LABOR RELATIONS ANALYST 03/31/2019 4:04 PM LABOR RELATIONS ANALYST us Merna Bell MD LAB BLOOD ORDERABLES Final Re kevint Performing Organization Address City/[facility]/ZIP Co de Phone Number [facility] * TSH (03/31/2019 3:37 PM LABOR RELATIONS ANALYST) TSH (Thyrotropin) 2.62 0.27 - 4.20 uIU/mL [facility] Comment:* Please note update d reference range for TSH effective 07/17/18 * Blood specimen (specimen) 03/31/2019 3:37 PM LABOR RELATIONS ANALYST 03/31/2019 4:04 PM LABOR RELATIONS ANALYST us Merna Bell MD LAB BLOOD ORDERABLES Final Re sult [facility] * CBC with auto differential (03/31/2019 3:37 PM LABOR RELATIONS ANALYST) White Blood Count 9.8 3.6 - 11.2 [...] [facility] Blood specimen (specimen) 03/31/2019 3:37 PM LABOR RELATIONS ANALYST 03/31/2019 4:04 PM LABOR RELATIONS ANALYST us Merna Bell MD LAB BLOOD ORDERABLES Final Re sult [facility] * (ABNORMAL) Comprehensive metabolic panel (03/31/2019 3:37 PM LABOR RELATIONS ANALYST) Total Protein 7.3 6.1 - 8.4 g/dL [...] = PROVISIONAL DIAGNOSIS OF DIABETES eGFR NON-AFR. [place] 53.8(L) >60.0 mL/min/1.7 3 m2 [facility] eGFR 62.3 >60.0 mL/min/1.7 3 m2 [facility] Blood specimen (specimen) 03/31/2019 3:37 PM LABOR RELATIONS ANALYST 03/31/2019 4:04 PM LABOR RELATIONS ANALYST Merna Bell MD LAB BLOOD ORDERABLES Final Re sult [facility] * (ABNORMAL) POCT hemoglobin A1c (03/31/2019 1:47 PM LABOR RELATIONS ANALYST) Hemoglobin A1C, POC 7.3 Blood specimen (specimen) 03/31/2019 1:47 PM LABOR RELATIONS ANALYST Merna Bell MD POINT OF CARE TEST ORDERABLES Final Result * POCT glucose (03/31/2019 1:43 PM LABOR RELATIONS ANALYST) Glucose Blood, POC 115 mg/dL Blood specimen (specimen) 03/31/2019 1:43 PM LABOR RELATIONS ANALYST Merna Bell MD POINT OF CARE TEST [...] documented as of this encounter Care Teams Transmission Line Engineer Relationship Specialty Start Date End Date Elpidio Serrato MD PCP - General Internal Medicine 06/09/18 documented as of this encounter
--- OUTSIDE RECORDS SUMMARY | 2024-04-29 21:23 | XMS_ITS | Encounter Summary ---
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, with long-term current use of insulin, unspecified laterality (CMS/HCC); Acquired hypothyroidism Social History Tobacco Use Types Packs/Day Years Used Date Smoking Tobacco: Never Comments Unknown Sex and Gender Information Value Date Recorded Sex Assigned at Not on file Legal Sex Female 3:59 AM DIRECTOR OF PARTNERSHIPS Gender Identity Female 05/13/2021 4:21 PM DIRECTOR OF PARTNERSHIPS Sexual Orientation Not on file documented as [...] Re sult Performing Organization Address [facility]/ZIP Co de Phone Number [facility] * PTH, intact (12/09/2017 10:42 AM CDT) Parathyroid Hormone 46.1 15.0 - 65.0 pg/mL [facility] Blood specimen (specimen) 12/09/2017 10:42 AM CDT 12/09/2017 2:24 PM CDT Merna Bell MD LAB BLOOD ORDERABLES Final Re sult [facility] [...] MD LAB BLOOD ORDERABLES Final Re sult [facility] * T4, free (12/09/2017 10:42 AM CDT) Free T4 1.39 0.93 - 1.70 ng/dL [facility] Blood specimen (specimen) 12/09/2017 10:42 AM CDT 12/09/2017 2:24 PM CDT Merna Bell MD LAB BLOOD ORDERABLES Final Re sult Performing Organization Address [facility]/ZIP Co de Phone Number [facility] * TSH (12/09/2017 10:42 AM CDT) Pathologist [facility] TSH (Thyrotropin) 1.64 0.50 - 5.00 uIU/mL [facility] Blood specimen (specimen) 12/09/2017 10:42 AM CDT 12/09/2017 2:24 PM CDT Merna Bell MD LAB BLOOD ORDERABLES Final Re sult Performing Organization Address [facility] Co de Phone Number [facility] * (ABNORMAL) Comprehensive metabolic panel (12/09/2017 10:42 AM CDT) Pathologist [facility] Total Protein 6.9 6.1 - 8.4 g/dL [...] hypothyroidism documented in this encounter Care Teams Rail Walker Relationship Specialty Start Date End Date Joaquin Melchor MD [address] [place] [address] PCP - General 06/25/16 06/08/18 documented as of this encounter
--- OUTSIDE RECORDS SUMMARY | 2024-04-29 21:24 | XMS_ITS | Encounter Summary ---
Author Organization [facility] Care Team Providers Care Senior Salesforce Developer Name Role Phone Unavailable Primary Care Provider Unavailabl e Encounter Details Date Type Department Care Team (Latest Contact Info) Description 06/18/2016 12:17 AM COMMISSION CLERK - 06/19/2016 1:37 PM COMMISSION CLERK Hospital Encounter [facility] Denzel Wasserman MD [address] [facility] [address] [place] [address] Chondrocostal junction syndrome; Acute kidney failure (CMS/HCC); Hyperkalemia; Zoster without complications; Type 2 diabetes mellitus without complications (CMS/HCC); assisted current use of insulin (CMS/HCC); Hypothyroidism; Hyperlipidemia; Essential (primary) hypertension; Glaucoma; Abnormality of gait and mobility; 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; Family history of ischemic heart disease and other diseases of the circulatory system; Family history of diabetes mellitus Social History Tobacco Use Types Packs/Day Years Used Date Smoking Tobacco: Never Comments Unknown Sex and Gender Information Value Date Recorded Sex Assigned at Not on file Legal Sex Female 3:59 AM COMMISSION CLERK Gender Identity Female 05/13/2021 4:21 PM COMMISSION CLERK Sexual Orientation Not on file documented as of this encounter Last Filed Vital Signs Vital Sign Reading Time Taken Comments Blood Pressure 144/61 06/19/2016 7:50 AM COMMISSION CLERK Pulse 94 06/19/2016 7:50 AM COMMISSION CLERK Temperature - - Respiratory Rate - - Oxygen Saturation 97% 06/19/2016 7:50 AM COMMISSION CLERK Inhaled Oxygen Concentration - - Weight 104.8 kg (231 lb 1.4 oz) 06/18/2016 3:00 AM COMMISSION CLERK Height 152.4 cm (5') 06/18/2016 12:22 AM COMMISSION CLERK Body Mass Index 45.13 06/18/2016 12:22 AM COMMISSION CLERK documented in this encounter Medications at Time [...] GLUCOSE, POC Routine 06/19/2016 11 :59 AM COMMISSION CLERK PLASMA BASIC METABOLIC PANEL Routine 06/19/2016 11:54 AM COMMISSION CLERK BLOOD GLUCOSE, POC Routine 06/19/2016 6: 47 AM COMMISSION CLERK URINE SODIUM Routine 06/19/2016 6:32 AM COMMISSION CLERK URINE POTASSIUM Routine 06/19/2016 6:32 AM COMMISSION CLERK URINE CHLORIDE Routine 06/19/2016 6:32 AM COMMISSION CLERK PLASMA BASIC METABOLIC PANEL Routine 06/19/2016 6:32 AM COMMISSION CLERK ELECTROCARDIOGRAPHY (ECG) 06/19/2016 ELECTROCARDIOGRAPHY (ECG) 06/19/2016 DISCHARGE LABORATORY CUMULATIVE REPORT 06/19/2016 SERUM TROPONIN I Routine 06/18/2016 9:45 PM COMMISSION CLERK BLOOD GLUCOSE, POC Routine 06/18/2016 7: 58 PM COMMISSION CLERK BLOOD GLUCOSE, POC Routine 06/18/2016 5: 25 PM COMMISSION CLERK PLASMA PARTIAL THROMBOPLASTIN TIME (PTT) Routine 06/18/2016 1:48 PM COMMISSION CLERK URINE CREATININE Routine 06/18/2016 1:38 PM COMMISSION CLERK SERUM TROPONIN I Routine 06/18/2016 1:38 PM COMMISSION CLERK PLASMA BASIC METABOLIC PANEL Routine 06/18/2016 1:38 PM COMMISSION CLERK BLOOD GLUCOSE, POC Routine 06/18/2016 11 :36 AM COMMISSION CLERK US RETROPERITONEAL COMPLETE Routine 06/18/2016 8:56 AM COMMISSION CLERK BLOOD GLUCOSE, POC Routine 06/18/2016 6: 52 AM COMMISSION CLERK URINE MICROSCOPY Routine 06/18/2016 3:53 AM COMMISSION CLERK URINALYSIS Routine 06/18/2016 3:53 AM COMMISSION CLERK BLOOD GLUCOSE, POC Routine 06/18/2016 3: 52 AM COMMISSION CLERK SERUM TROPONIN I Routine 06/18/2016 3:44 AM COMMISSION CLERK SERUM LIPID PANEL Routine 06/18/2016 3:4 4 AM COMMISSION CLERK SERUM IRON PROFILE Routine 06/18/2016 3: 44 AM COMMISSION CLERK SERUM FERRITIN Routine 06/18/2016 3:44 AM COMMISSION CLERK SERUM CREATINE KINASE (CK) Routine 06/18 3:44 AM COMMISSION CLERK PLASMA PROTHROMBIN TIME (PT) Routine 06/18/2016 3:44 AM COMMISSION CLERK PLASMA PARTIAL THROMBOPLASTIN TIME (PTT) Routine 06/18/2016 3:44 AM COMMISSION CLERK PLASMA BASIC METABOLIC PANEL Routine 06/18/2016 3:44 AM COMMISSION CLERK BLOOD HEMOGLOBIN A1C Routine 06/18/2016 3:44 AM COMMISSION CLERK BLOOD CELL COUNT Routine 06/18/2016 3:44 AM COMMISSION CLERK BLOOD CELL COUNT Routine 06/18/2016 3:44 AM COMMISSION CLERK BLOOD B-TYPE NATRIURETIC PEPTIDE (BNP) Routine 06/18/2016 3:44 AM COMMISSION CLERK BLOOD GLUCOSE, POC Routine 06/18/2016 12 :37 AM COMMISSION CLERK ELECTROCARDIOGRAPHY (ECG) 06/18/2016 ELECTROCARDIOGRAPHY (ECG) 06/18/2016 STRESS TEST ONLY, DOBUTAMINE 06/18/2016 BLOOD GLUCOSE, POC Routine 06/17/2016 11 :58 PM COMMISSION CLERK BLOOD GLUCOSE, POC Routine 06/17/2016 10 :16 PM COMMISSION CLERK BLOOD GLUCOSE, POC Routine 06/17/2016 8: 16 PM COMMISSION CLERK PLASMA PROTHROMBIN TIME (PT) Routine 06/17/2016 6:42 PM COMMISSION CLERK PLASMA PARTIAL THROMBOPLASTIN TIME (PTT) Routine 06/17/2016 6:42 PM COMMISSION CLERK XR CHEST PA LATERAL 2 VIEWS Routine 06/17/2016 4:32 PM COMMISSION CLERK SERUM TROPONIN I Routine 06/17/2016 4:19 PM COMMISSION CLERK SERUM THYROXINE (T4), FREE Routine 06/17 4:19 PM COMMISSION CLERK SERUM THYROID-STIMULATING HORMONE (TSH) Routine 06/17/2016 4:19 PM COMMISSION CLERK SERUM MAGNESIUM Routine 06/17/2016 4:19 PM COMMISSION CLERK PLASMA PHOSPHORUS Routine 06/17/2016 4:1 9 PM COMMISSION CLERK PLASMA HEPATIC FUNCTION PANEL Routine 06/17/2016 4:19 PM COMMISSION CLERK PLASMA BASIC METABOLIC PANEL Routine 06/17/2016 4:19 PM COMMISSION CLERK BLOOD CELL COUNT (CBC) Routine 7 4:19 PM COMMISSION CLERK BLOOD CELL MORPHOLOGIC EXAM Routine 06/17/2016 4:19 PM COMMISSION CLERK BLOOD GLUCOSE, POC Routine 06/17/2016 4: 00 PM COMMISSION CLERK documented in this encounter Results * (ABNORMAL) Blood glucose, POC (06/19/2016 11:59 AM COMMISSION CLERK) Glucose, POC, bld 287(H) 70 - 199 mg/dl CDR HISTORICAL RESULTS Blood specimen (specimen) 06/19/2016 11:59 AM COMMISSION CLERK Denzel Mathews MD LAB BLOOD ORDERABLES Final Result Performing Organization Address [facility] de Phone Number CDR HISTORICAL RESULTS * (ABNORMAL) Plasma basic metabolic panel (06/19/2016 11:54 AM COMMISSION CLERK) Sodium 137 135 - 145 mmol/L CDR [...] HISTORICAL RESULTS Plasma 06/19/2016 11:5 4 AM COMMISSION CLERK Umer Delacruz MD LAB BLOOD ORDERABLES Final Result Performing Organization Address [facility] de Phone Number CDR HISTORICAL RESULTS * Blood glucose, POC (06/19/2016 6:47 AM COMMISSION CLERK) Glucose, POC, bld 169 70 - 199 mg/dl CDR HISTORICAL RESULTS Blood specimen (specimen) 06/19/2016 6:47 AM COMMISSION CLERK Denzel Mathews MD LAB BLOOD ORDERABLES Final Result Performing Organization Address [facility] Co de Phone Number CDR HISTORICAL RESULTS * (ABNORMAL) Plasma basic metabolic panel (06/19/2016 6:32 AM COMMISSION CLERK) Sodium 145 135 - 145 mmol/L CDR [...] CDR HISTORICAL RESULTS Plasma 06/19/2016 6:32 AM COMMISSION CLERK Lee Ann Lyn MD PhD LAB BLOOD ORDERAB LES Final Result Performing Organization Address [facility] Co de Phone Number CDR HISTORICAL RESULTS * Urine sodium (06/19/2016 6:32 AM COMMISSION CLERK) Sodium, ur 98 mmol/L CDR HISTO RICAL RESULTS Urine 06/19/2016 6:32 AM COMMISSION CLERK Result [facility] Umer Delacruz MD LAB BLOOD ORDERABLES Final Result Performing Organization Address [facility] Co de Phone Number CDR HISTORICAL RESULTS * Urine potassium (06/19/2016 6:32 AM COMMISSION CLERK) Potassium, ur 22 mmol/L CDR HI STORICAL RESULTS Urine 06/19/2016 6:32 AM COMMISSION CLERK Umer Delacruz MD LAB BLOOD ORDERABLES Final Result Performing Organization Address City/[facility]/ZIP Co de Phone Number CDR HISTORICAL RESULTS * Urine chloride (06/19/2016 6:32 AM COMMISSION CLERK) Chloride, ur 86 mmol/L CDR HIS TORICAL RESULTS Urine 06/19/2016 6:32 AM COMMISSION CLERK Result [facility] Umer Delacruz MD LAB BLOOD ORDERABLES Final Result Performing Organization Address [facility] Co de Phone Number CDR HISTORICAL RESULTS * DISCHARGE LABORATORY CUMULATIVE REPORT (06/19/2016) Narrative 06/19/2016 Ordered by an unspecified provider. Result [facility] Historical Provider LAB BLOOD ORDERABLES Phyllis l Result * ELECTROCARDIOGRAPHY (ECG) (06/19/2016) Narrative 06/19/2016 Ordered by an unspecified provider. Result [facility] Provider ECG ORDERABLES Final Res ult * ELECTROCARDIOGRAPHY (ECG) (06/19/2016) Narrative 06/19/2016 Ordered by an unspecified provider. Result [facility] Provider ECG ORDERABLES Final Res ult * (ABNORMAL) Serum troponin I (06/18/2016 9:45 PM COMMISSION CLERK) Troponin I 0.05(H) 0.00 - 0.03 ng/ml CDR HISTORICAL RESULTS Comment: Interpretive Data Serial determinations are recommended for the diagnosis of myocardial infarction (Third [place] Definition of Myocardial Infarction. ??J Am Remi Cardiol 2012;60:1581-98). Current interpretive data was last revised on 13. Serum 06/18/2016 9:45 PM COMMISSION CLERK Result [facility] Umer Delacruz MD LAB BLOOD ORDERABLES Final Result Performing Organization Address [facility] de Phone Number CDR HISTORICAL RESULTS * (ABNORMAL) Blood glucose, POC (06/18/2016 7:58 PM COMMISSION CLERK) Glucose, POC, bld 242(H) 70 - 199 mg/dl CDR HISTORICAL RESULTS Blood specimen (specimen) 06/18/2016 7:58 PM COMMISSION CLERK Result [facility] Denzel Mathews MD LAB BLOOD ORDERABLES Final Result Performing Organization Address [facility] Co de Phone Number CDR HISTORICAL RESULTS * Blood glucose, POC (06/18/2016 5:25 PM COMMISSION CLERK) Glucose, POC, bld 148 70 - 199 mg/dl CDR HISTORICAL RESULTS Blood specimen (specimen) 06/18/2016 5:25 PM COMMISSION CLERK Result [facility] Denzel Mathews MD LAB BLOOD ORDERABLES Final Result Performing Organization Address [facility] Phone Number CDR HISTORICAL RESULTS * (ABNORMAL) Plasma partial thromboplastin time (PTT) (06/18/2016 1:48 PM COMMISSION CLERK) [facility] APTT 75.3(H) 25.0 - 37.0 seconds [facility] HISTORICAL RESULTS Comment: Interpretive Data Therapeutic heparin range:60.0 - 94.0 sec based on correlation with therapeutic heparin activity range of 0.3 -0.7 Units/mL. Current interpretive data was last revised on 2011. Plasma 06/18/2016 1:48 PM COMMISSION CLERK Result [facility] Eddie Romero MD PhD LAB BLOOD ORDERABLES Final Result Performing Organization Address [facility] Phone Number [facility] HISTORICAL RESULTS * (ABNORMAL) Plasma basic metabolic panel (06/18/2016 1:38 PM COMMISSION CLERK) [facility] Sodium 140 135 - 145 mmol/L [...] CDR HISTORICAL RESULTS Plasma 06/18/2016 1:38 PM COMMISSION CLERK Result [facility] Eddie Romero MD PhD LAB BLOOD ORDERABLES Final Result Performing Organization Address [facility] de Phone Number CDR HISTORICAL RESULTS * (ABNORMAL) Serum troponin I (06/18/2016 1:38 PM COMMISSION CLERK) Troponin I 0.05(H) 0.00 - 0.03 ng/ml CDR HISTORICAL RESULTS Comment: Interpretive Data Serial determinations are recommended for the diagnosis of myocardial infarction ([place] Definition of Myocardial Infarction. ??J Am Remi Cardiol 2012;60:1581-98). Current interpretive data was last revised on 13. Serum 06/18/2016 1:38 PM COMMISSION CLERK us Eddie Romero MD PhD LAB BLOOD ORDERABLES Final Result Performing Organization Address [facility] Phone Number CDR HISTORICAL RESULTS * Urine creatinine (06/18/2016 1:38 PM COMMISSION CLERK) Creatinine, ur 32 mg/dl CDR H ISTORICAL RESULTS Urine 06/18/2016 1:38 PM COMMISSION CLERK Umer Delacruz MD LAB BLOOD ORDERABLES Final Result Performing Organization Address [facility] de Phone Number CDR HISTORICAL RESULTS * Blood glucose, POC (06/18/2016 11:36 AM COMMISSION CLERK) Glucose, POC, bld 138 70 - 199 mg/dl CDR HISTORICAL RESULTS Blood specimen (specimen) 06/18/2016 11:36 AM COMMISSION CLERK Denzel Mathews MD LAB BLOOD ORDERABLES Final Result Performing Organization Address [facility] de Phone Number CDR HISTORICAL RESULTS * US Retroperitoneal Complete (06/18/2016 8:56 AM COMMISSION CLERK) Anatomical Region Laterality Modality Abdomen N/A Ultrasound 06/18/2016 8:56 AM COMMISSION CLERK Narrative 06/18/2016 9:46 AM COMMISSION CLERK FABIO CLARK M.D. LYNNE SANDHU FINAL REPORT The radiology attending physician has personally reviewed this study, and has reviewed and/or edited this written report and agrees with it. ACC# ??Date Time ??Exam [id number] Jun 18, 2016 08:56:00 [id number] US Retroper cmp EXAMINATION: ?COMPLETE RENAL SONOGRAM [...] FABIO CLARK M.D. on Jun ??2016 ??9:46A [id number] Procedure Note Provider, MD Aldair - 09/17/2016 FABIO CLARK M.D. [facility]AND[facility] FINAL REPORT The radiology attending physician has personally reviewed this study, and has reviewed and/or edited this written report and agrees with it. ACC# Date Time Exam [id number] Jun 18, 2016 08:56:00 [id number] US Retroper cmp EXAMINATION: COMPLETE RENAL SONOGRAM [...] CLARK M.D. on Jun 18 2016 9:46A [id number] us Historical Provider IMHenna US PROCEDURES Final R esult * (ABNORMAL) Blood glucose, POC (06/18/2016 6:52 AM COMMISSION CLERK) Glucose, POC, bld 209(H) 70 - 199 mg/dl CDR HISTORICAL RESULTS Blood specimen (specimen) 06/18/2016 6:52 AM COMMISSION CLERK Denzel Mathews MD LAB BLOOD ORDERABLES Final Result Performing Organization Address [facility] de Phone Number CDR HISTORICAL RESULTS * (ABNORMAL) Urinalysis (06/18/2016 3:53 AM COMMISSION CLERK) Color, ur Straw Yellow CDR HISTOR ICAL [...] CDR HISTORICAL RESULTS Urine 06/18/2016 3:53 AM COMMISSION CLERK Eloisa Mo NP LAB BLOOD ORDERABLES Final R esult Performing Organization Address [facility] de Phone Number CDR HISTORICAL RESULTS * (ABNORMAL) Urine microscopy (06/18/2016 3:53 AM COMMISSION CLERK) RBC, ur 2 0 - 3 /hpf [...] H ISTORICAL RESULTS Urine 06/18/2016 3:53 AM COMMISSION CLERK Eloisa Mo MORNING CAREGIVER LAB BLOOD ORDERABLES Final R esult Performing Organization Address [facility] de Phone Number CDR HISTORICAL RESULTS * (ABNORMAL) Blood glucose, POC (06/18/2016 3:52 AM COMMISSION CLERK) [facility] Glucose, POC, bld 274(H) 70 - 199 mg/dl CDR HISTORICAL RESULTS Blood specimen (specimen) 06/18/2016 3:52 AM COMMISSION CLERK Denzel Mathews MD LAB BLOOD ORDERABLES Final Result Performing Organization Address [facility] de Phone Number CDR HISTORICAL RESULTS * Blood B-type natriuretic peptide (BNP) (06/18/2016 3:44 AM COMMISSION CLERK) [facility] BNP 29 0 - 100 pg/ml CDR HISTORICAL RESULTS Blood specimen (specimen) 06/18/2016 3:44 AM COMMISSION CLERK Eddie Romero MD PhD LAB BLOOD ORDERABLES Final Result Performing Organization Address [facility] de Phone Number CDR HISTORICAL RESULTS * (ABNORMAL) Blood cell count [CBC] express (06/18/2016 3:44 AM COMMISSION CLERK) [facility] WBC 8.6 3.8 - 9.9 K/cumm [...] RESULTS Blood specimen (specimen) 06/18/2016 3:44 AM COMMISSION CLERK Eddie Romero MD PhD LAB BLOOD ORDERABLES Final Result Performing Organization Address [facility] de Phone Number CDR HISTORICAL RESULTS * Serum creatine kinase (CK) (06/18/2016 3:44 AM COMMISSION CLERK) CK 82 20 - 200 Units/L CDR HISTORICAL RESULTS Serum 06/18/2016 3:44 AM COMMISSION CLERK Eddie Romero MD PhD LAB BLOOD ORDERABLES Final Result Performing Organization Address [facility] de Phone Number CDR HISTORICAL RESULTS * (ABNORMAL) Serum lipid panel (06/18/2016 3:44 AM COMMISSION CLERK) Cholesterol 210(H) 30 - 200 mg/dl CDR [...] last revised 2015. Serum 06/18/2016 3:44 AM COMMISSION CLERK Eddie Romero MD PhD LAB BLOOD ORDERABLES Final Result Performing Organization Address [facility] de Phone Number CDR HISTORICAL RESULTS * Plasma partial thromboplastin time (PTT) (06/18/2016 3:44 AM COMMISSION CLERK) APTT 35.7 25.0 - 37.0 seconds CDR HISTORICAL RESULTS Comment: Interpretive Data Therapeutic heparin range:60.0 - 94.0 sec based on correlation with therapeutic heparin activity range of 0.3 -0.7 Units/mL. Current interpretive data was last revised on 2011. Plasma 06/18/2016 3:44 AM COMMISSION CLERK Eddie Romero MD PhD LAB BLOOD ORDERABLES Final Result Performing Organization Address [facility] de Phone Number CDR HISTORICAL RESULTS * (ABNORMAL) Plasma basic metabolic panel (06/18/2016 3:44 AM COMMISSION CLERK) Sodium 138 135 - 145 mmol/L CDR [...] CDR HISTORICAL RESULTS Plasma 06/18/2016 3:44 AM COMMISSION CLERK Eddei Romero MD PhD LAB BLOOD ORDERABLES Final Result Performing Organization Address [facility] Co de Phone Number CDR HISTORICAL RESULTS * (ABNORMAL) Serum iron profile (06/18/2016 3:44 AM COMMISSION CLERK) Iron 47 35 - 145 mcg/dl CDR HISTORICAL RESULTS UIBC 246 112 - 347 mcg/dl CDR HISTORICAL RESULTS TIBC 293 250 - 400 mcg/dl CDR HISTORICAL RESULTS Transferrin saturation 16(L) 20 - 50 % CDR HISTORICAL RESULTS Serum 06/18/2016 3:44 AM COMMISSION CLERK Eddie Romero MD PhD LAB BLOOD ORDERABLES Final Result Performing Organization Address [facility] de Phone Number CDR HISTORICAL RESULTS * Serum troponin I (06/18/2016 3:44 AM COMMISSION CLERK) Troponin I <0.03 0.00 - 0.03 ng/ml CDR HISTORICAL RESULTS Comment: Interpretive Data Serial determinations are recommended for the diagnosis of myocardial infarction (Third [place] Definition of Myocardial Infarction. ??J Am Remi Cardiol 2012;60:1581-98). Current interpretive data was last revised on 13. Serum 06/18/2016 3:44 AM COMMISSION CLERK Eddie Romero MD PhD LAB BLOOD ORDERABLES Final Result Performing Organization Address [place]/[facility] Co de Phone Number CDR HISTORICAL RESULTS * Plasma prothrombin time (PT) (06/18/2016 3:44 AM COMMISSION CLERK) Pathologist [facility] Prothrombin time (PT) 11.2 9.2 - 14.0 [...] updated copy of the Tool Book at [email or web address] Current Interpretive Data was last revised 2011. Plasma 06/18/2016 3:44 AM COMMISSION CLERK Eddie Romero MD PhD LAB BLOOD ORDERABLES Final Result Performing Organization Address [facility] de Phone Number CDR HISTORICAL RESULTS * Serum ferritin (06/18/2016 3:44 AM COMMISSION CLERK) Pathologist [facility] Ferritin 111 15 - 150 ng/ml CDR HISTORICAL RESULTS Serum 06/18/2016 3:44 AM COMMISSION CLERK us Eddie Romero MD PhD LAB BLOOD ORDERABLES Final Result Performing Organization Address [facility] de Phone Number CDR HISTORICAL RESULTS * (ABNORMAL) Blood cell count [CBC] express (06/18/2016 3:44 AM COMMISSION CLERK) Pathologist [facility] WBC 8.8 3.8 - 9.9 K/cumm CDR [...] RESULTS Blood specimen (specimen) 06/18/2016 3:44 AM COMMISSION CLERK Eddie Romero MD PhD LAB BLOOD ORDERABLES Final Result Performing Organization Address [facility] Co de Phone Number CDR HISTORICAL RESULTS * (ABNORMAL) Blood hemoglobin A1C (06/18/2016 3:44 AM COMMISSION CLERK) Hgb A1C 9.0(H) 4.0 - 6.0 % CDR HISTORICAL RESULTS Estimated average glucose 212 mg/dl CDR HISTORIC AL RESULTS Comment: The ADA recommends reporting an estimated Average Glucose (eAG) with all Hemoglobin A1c results using the equation derived from a study of 507 normal and diabetic adults. ??Minority populations were underrepresented and children were not included. ??(Diabetes Care 31:0466-0335, 2007). ??The eAG is not equivalent to a fasting glucose. Blood specimen (specimen) 06/18/2016 3:44 AM COMMISSION CLERK Edide Romero MD PhD LAB BLOOD ORDERABLES Final Result Performing Organization Address [facility]/ZIP Co de Phone Number CDR HISTORICAL RESULTS * (ABNORMAL) Blood glucose, POC (06/18/2016 12:37 AM COMMISSION CLERK) Glucose, POC, bld 250(H) 70 - 199 mg/dl CDR HISTORICAL RESULTS Blood specimen (specimen) 06/18/2016 12:37 AM COMMISSION CLERK Result [facility] iNi Browning MD LAB BLOOD ORDERABLES Final Re sult Performing Organization Address [facility] Co de Phone Number CDR HISTORICAL RESULTS * STRESS TEST ONLY, DOBUTAMINE (06/18/2016) Anatomical Region Laterality Modality Other Narrative 06/18/2016 Ordered by an unspecified provider. Result [facility] Historical Provider CV STRESS PROCEDURES Phyllis l Result * ELECTROCARDIOGRAPHY (ECG) (06/18/2016) Narrative 06/18/2016 Ordered by an unspecified provider. Result [facility] Provider ECG ORDERABLES Final Res ult * ELECTROCARDIOGRAPHY (ECG) (06/18/2016) Narrative 06/18/2016 Ordered by an unspecified provider. Result [facility] Historical Provider ECG ORDERABLES Final Res ult * (ABNORMAL) Blood glucose, POC (06/17/2016 11:58 PM COMMISSION CLERK) Glucose, POC, bld 202(H) 70 - 199 mg/dl CDR HISTORICAL RESULTS Blood specimen (specimen) 06/17/2016 11:58 PM COMMISSION CLERK Result [facility] Nii Browning MD LAB BLOOD ORDERABLES Final Re sult Performing Organization Address [facility] Co de Phone Number CDR HISTORICAL RESULTS * (ABNORMAL) Blood glucose, POC (06/17/2016 10:16 PM COMMISSION CLERK) Glucose, POC, bld 64(L) 70 - 199 mg/dl CDR HISTORICAL RESULTS Blood specimen (specimen) 06/17/2016 10:16 PM COMMISSION CLERK Result [facility] Nii Browning MD LAB BLOOD ORDERABLES Final Re sult Performing Organization Address [facility] Co de Phone Number CDR HISTORICAL RESULTS * Blood glucose, POC (06/17/2016 8:16 PM COMMISSION CLERK) Glucose, POC, bld 78 70 - 199 mg/dl CDR HISTORICAL RESULTS Blood specimen (specimen) 06/17/2016 8:16 PM COMMISSION CLERK Notinfile Unknown LAB BLOOD ORDERABLES Final Res ult CDR HISTORICAL RESULTS * Plasma partial thromboplastin time (PTT) (06/17/2016 6:42 PM COMMISSION CLERK) APTT 26.3 25.0 - 37.0 seconds CDR HISTORICAL RESULTS Comment: Interpretive Data Therapeutic heparin range:60.0 - 94.0 sec based on correlation with therapeutic heparin activity range of 0.3 -0.7 Units/mL. Current interpretive data was last revised on 2011. Plasma 06/17/2016 6:42 PM COMMISSION CLERK Eloisa Mo MORNING CAREGIVER LAB BLOOD ORDERABLES Final R esult Performing Organization Address [facility]/State/ZIP Co de Phone Number CDR HISTORICAL RESULTS * Plasma prothrombin time (PT) (06/17/2016 6:42 PM COMMISSION CLERK) Prothrombin time (PT) 11.2 9.2 - 14.0 [...] updated copy of the Tool Book at [email or web address] Current Interpretive Data was last revised 2011. Plasma 06/17/2016 6:42 PM COMMISSION CLERK us Eloisa Mo MORNING CAREGIVER LAB BLOOD ORDERABLES Final R esult CDR HISTORICAL RESULTS * XR Chest Pa Lateral 2 Views (06/17/2016 4:32 PM COMMISSION CLERK) Anatomical Region Laterality Modality Body, Chest N/A Radiographic Luba ging 06/17/2016 4:32 PM COMMISSION CLERK Narrative 06/17/2016 5:17 PM COMMISSION CLERK Nahid SANCHEZ M.D. FINAL REPORT The radiology attending physician has personally reviewed this study, and has reviewed and/or edited this written report and agrees with it. ACC# ??Date Time ??Exam [id number] Jun 17, 2016 16:32:00 99520 Chest 2 views Frontl & Lat EXAMINATION: [...] CERRATO M.D. on Jun 17 2016 ??5:16P [id number] Procedure Note Provider, MD Aldair - 10/19/2016 Nahid SANCHEZ M.D. FINAL REPORT The radiology attending physician has personally reviewed this study, and has reviewed and/or edited this written report and agrees with it. ACC# Date Time Exam [id number] Jun 17, 2016 16:32:00 [id number] Chest 2 views Frontl & Lat EXAMINATION: [...] CERRATO M.D. on Jun 17 2016 5:16P [id number] Historical Provider IMG XR PROCEDURES Final R esult * (ABNORMAL) Serum thyroid-stimulating hormone (TSH) (06/17/2016 4:19 PM COMMISSION CLERK) TSH 0.09(L) 0.30 - 4.20 mcIUnits/ ml CDR HISTORICAL RESULTS Comment: Interpretive Data Hyperthyroid: ??<0.1 mcIUnit/mL Hypothyroid: ??>12.0 mcIUnit/mL Current interpretive data was last revised on 00. Serum 06/17/2016 4:19 PM COMMISSION CLERK Vincent Mccann MD LAB BLOOD ORDERABLES Final Res ult Performing Organization Address [facility] Co de Phone Number CDR HISTORICAL RESULTS * Plasma hepatic function panel (06/17/2016 4:19 PM COMMISSION CLERK) Bilirubin 0.2 0.1 - 1.2 mg/dl CDR [...] CDR HISTORICAL RESULTS Plasma 06/17/2016 4:19 PM COMMISSION CLERK Vincent Mccann MD LAB BLOOD ORDERABLES Final Res ult Performing Organization Address City/State/[facility] Co de Phone Number CDR HISTORICAL RESULTS * (ABNORMAL) Plasma basic metabolic panel (06/17/2016 4:19 PM COMMISSION CLERK) Sodium 136 135 - 145 mmol/L CDR [...] CDR HISTORICAL RESULTS Plasma 06/17/2016 4:19 PM COMMISSION CLERK Vincent Mccann MD LAB BLOOD ORDERABLES Final Res ult Performing Organization Address [facility] de Phone Number CDR HISTORICAL RESULTS * Serum troponin I (06/17/2016 4:19 PM COMMISSION CLERK) Troponin I 0.03 0.00 - 0.03 ng/ml CDR HISTORICAL RESULTS Comment: Interpretive Data Serial determinations are recommended for the diagnosis of myocardial infarction (Third [place] Definition of Myocardial Infarction. ??J Am Remi Cardiol 2012;60:1581-98). Current interpretive data was last revised on 13. Serum 06/17/2016 4:19 PM COMMISSION CLERK Vincent Mccann MD LAB BLOOD ORDERABLES Final Res ult Performing Organization Address City/[facility] Co de Phone Number CDR HISTORICAL RESULTS * (ABNORMAL) Plasma phosphorus (06/17/2016 4:19 PM COMMISSION CLERK) Phosphorus, pl 5.4(H) 2.3 - 4.5 mg/dl CDR HISTORICAL RESULTS Plasma 06/17/2016 4:19 PM COMMISSION CLERK Vincent Mccann MD LAB BLOOD ORDERABLES Final Res ult Performing Organization Address [facility] de Phone Number CDR HISTORICAL RESULTS * Serum magnesium (06/17/2016 4:19 PM COMMISSION CLERK) Pathologist [facility] Magnesium 2.3 1.4 - 2.5 mg/dl CDR HISTORICAL RESULTS Serum 06/17/2016 4:19 PM COMMISSION CLERK Vincent Mccann MD LAB BLOOD ORDERABLES Final Res ult Performing Organization Address [facility] de Phone Number CDR HISTORICAL RESULTS * (ABNORMAL) Serum thyroxine (T4), free (06/17/2016 4:19 PM COMMISSION CLERK) Pathologist [facility] Free T4 1.74(H) 0.90 - 1.70 ng/dl CDR HISTORICAL RESULTS Serum 06/17/2016 4:19 PM COMMISSION CLERK Vincent Mccann MD LAB BLOOD ORDERABLES Final Res ult Performing Organization Address [facility] de Phone Number CDR HISTORICAL RESULTS * Blood cell count (CBC) (06/17/2016 4:19 PM COMMISSION CLERK) Pathologist [facility] WBC 9.9 3.8 - 9.9 K/cumm CDR [...] RESULTS Blood specimen (specimen) 06/17/2016 4:19 PM COMMISSION CLERK Vincent Mccann MD LAB BLOOD ORDERABLES Final Res ult Performing Organization Address [facility]/State/ZIP Co de Phone Number CDR HISTORICAL RESULTS * (ABNORMAL) Blood cell morphologic exam (06/17/2016 4:19 PM COMMISSION CLERK) Neutrophils 67.5 % CDR HIST ORICAL RESULTS [...] RESULTS Blood specimen (specimen) 06/17/2016 4:19 PM COMMISSION CLERK Vincent Mccann MD LAB BLOOD ORDERABLES Final Res ult Performing Organization Address [facility] Co de Phone Number CDR HISTORICAL RESULTS * Blood glucose, POC (06/17/2016 4:00 PM COMMISSION CLERK) Glucose, POC, bld 138 70 - 199 mg/dl CDR HISTORICAL RESULTS Blood specimen (specimen) 06/17/2016 4:00 PM COMMISSION CLERK Notinfile Unknown LAB BLOOD ORDERABLES Final Res ult CDR HISTORICAL RESULTS documented in this encounter Visit Diagnoses Diagnosis Chondrocostal junction syndrome Tietze's disease Acute kidney failure (HCC) Acute kidney failure, unspecified Hyperkalemia Hyperpotassemia Zoster without complications Type 2 diabetes mellitus without complications (CMS/HCC) (HCC) assisted current use of insulin (CMS/HCC) (HCC) Hypothyroidism Unspecified hypothyroidism Hyperlipidemia Other and unspecified hyperlipidemia Essential (primary) hypertension Unspecified essential hypertension Glaucoma Unspecified glaucoma Abnormality of gait and mobility assisted current use of aspirin Family history of ischemic heart disease and other diseases of the circulatory system Family history of diabetes mellitus documented in this encounter
--- OUTSIDE RECORDS SUMMARY | 2024-04-29 21:24 | XMS_ITS | Encounter Summary ---
Author Organization [facility] Facility Care Team Providers Care Dry Lumber Grader Name Role Phone Unavailable Primary Care Provider Unavailabl e Encounter Details Date Type Department Care Team (Late st Contact Info) Description 07/14/2012 - 07/14/2012 11:59 PM CBX OPERATOR Hospital Encounter [facility] Eloisa Crouch MD [address] [phone] Actinic keratosis Social History Tobacco Use Types Packs/Day Years Used Date Smoking Tobacco: Never Assessed Comments Unknown Sex and Gender Information Value Date Recorded Sex Assigned at Not on file Legal Sex Female 3:59 AM CBX OPERATOR Gender Identity Female 05/13/2021 4:21 PM CBX OPERATOR Sexual Orientation Not on file documented [...]
--- OUTSIDE RECORDS SUMMARY | 2024-04-29 21:24 | XMS_ITS | Encounter Summary ---
Author Organization [facility] Facility Care Team Providers Care Air Intercept Controller Supervisor Name Role Phone Unavailable Primary Care Provider Unavailabl e Encounter Details Date Type Department Care Team (Late st Contact Info) Description 07/08/2012 - 05/12/2013 11:59 PM COMPUTER VIDEO GAME DESIGNER Hospital Encounter [facility] Social History Tobacco Use Types Packs/Day Years Used Date Smoking Tobacco: Never Comments Unknown Sex and Gender Information Value Date Recorded Sex Assigned at Not on file Legal Sex Female 3:59 AM COMPUTER VIDEO GAME DESIGNER Gender Identity Female 05/13/2021 4:21 PM COMPUTER VIDEO GAME DESIGNER Sexual Orientation Not on file documented [...] LABORATORY CUMULATIVE REPORT Routine 07/08/2012 5:10 AM COMPUTER VIDEO GAME DESIGNER BLOOD CELL COUNT (CBC) Routine 07/07/2012 5:17 PM COMPUTER VIDEO GAME DESIGNER documented in this encounter Results * Discharge Laboratory Cumulative Report (07/08/2012 5:10 AM COMPUTER VIDEO GAME DESIGNER) 07/08/2012 5:10 AM COMPUTER VIDEO GAME DESIGNER Narrative HISTORICAL RESULTS - 07/08/2012 5:10 AM COMPUTER VIDEO GAME DESIGNER ? [facility] ? Department of Laboratories ?[facility] [address] ?Core Lab for Clinical ?Studies ?[place] [employer] ?[address] ?[id number] ?[place] [address] Patient Name: ? LEVON FIGUEREDO Med Rec Number: ?? [id number] Date of : ?1950 Gender/Age: ? Female [...] Lymph Pct Auto ??29.4 ?% ? 20.0-54.3 Jessamine Pct Auto ?? 4.6 ? % ? 4.3-13.5 Eos Pct Auto ?0.8 ? % ? 0.0-6.0 Baso Pct Auto ?? 0.6 ? % ? 0.0-3.0 Neut Abs Auto ?? 6.2 ? K/cumm ??1.8-6.6 Lymph Abs Auto ??2.8 ? K/cumm ??1.2-3.3 Jessamine Abs Auto ?? 0.4 ? K/cumm ??0.2-1.2 Eos Abs Auto ?0.1 ? K/cumm ??0.0-0.5 Baso Abs Auto ?? 0.1 ? K/cumm ??0.0-0.2 us Historical Provider LAB BLOOD ORDERABLES Phyllis l Result HISTORICAL RESULTS * Blood cell count (CBC) (07/07/2012 5:17 PM COMPUTER VIDEO GAME DESIGNER) WBC 9.6 3.8 - 9.8 K/cumm HISTORICAL [...] RESULTS Blood specimen (specimen) 07/07/2012 5:17 PM COMPUTER VIDEO GAME DESIGNER us Markie Vicente Jr., MD LAB BLOOD ORDERABLES Final Result HISTORICAL RESULTS documented in this encounter Visit Diagnoses Not on filedocumented in this encounter
--- OUTSIDE RECORDS SUMMARY | 2024-04-29 21:24 | XMS_ITS | Encounter Summary ---
Author Organization [facility] Address [address] [place] [address] Care Team Providers Care Software Installer Name Role Phone Joaquin Melchor MD Primary Care Prov ider Encounter Details Date Type Department Care Team (Latest Contact Info) Description 12/03/2016 11:09 AM CDT - 12/03/2016 11:[address] [facility] Hospital Encounter [facility] [phone] Merna Bell MD [address] [facility] [address] [address] Discharge Disposition: Discharge to home or self care Social History Tobacco Use Types Packs/Day Years Used Date Smoking Tobacco: Never Comments Unknown Sex and Gender Information Value Date Recorded Sex Assigned at Not on file Legal Sex Female 3:59 AM BRASS FINISHER Gender Identity Female 05/13/2021 4:21 PM BRASS FINISHER Sexual Orientation Not on file documented as [...] D 25-OH 31.3 30.0 - 100.0 ng/mL [facility] Blood specimen (specimen) 12/03/2016 11:33 AM CDT 12/03/2016 11:43 AM CDT Merna Bell MD LAB BLOOD ORDERABLES Edited R esult - Final Performing Organization Address City/[facility]/ZIP Co de Phone Number [facility] [place] [address] * ALBUMIN / CREATININE URINE RATIO, RANDOM (12/03/2016 11:33 AM CDT) Pathologist [facility] Microalbumin, ur 20.6 mcg/mL [facility] Creatinine, ur 131.50 mg/dL [facility] Microalbumin/cr eat ratio 15.7 0.1 - 29.9 mcg/mg Cr [facility] Urine 12/03/2016 11:3 3 AM CDT 12/03/2016 11:50 AM CDT Merna Bell MD LAB BLOOD BANK TEST ORDERABLE S Final Result [facility] [place] [address] * PTH, intact (12/03/2016 11:33 AM CDT) PTH 57 15 - 65 pg/mL [facility] Blood specimen (specimen) 12/03/2016 11:33 AM CDT 12/03/2016 11:43 AM CDT Merna Bell MD LAB BLOOD ORDERABLES Final Re sult [facility] [place] [address] * (ABNORMAL) Renal function panel (12/03/2016 11:33 AM CDT) Pathologist [facility] Sodium 143 135 - 145 mmol/L [facility] Potassium, pl 4.2 3.3 - 4.9 mmol/L [facility] Chloride 109 97 - 110 mmol/L [facility] CO2 23 22 - 32 mmol/L [facility] Anion gap 11 2 - 15 mmol/L [facility] Glucose 130 70 - 199 mg/dL [facility] BUN 28(H) 8 - 25 mg/dL [facility] Creatinine 0.88 0.60 - 1.10 mg/dL [facility] Calcium 9.5 8.5 - 10.3 mg/dL [facility] Phosphorus, pl 4.2 2.3 - 4.5 mg/dL [facility] Albumin 4.2 3.5 - 5.0 g/dL [facility] Blood specimen (specimen) 12/03/2016 11:33 AM CDT 12/03/2016 11:43 AM CDT Merna Bell MD LAB BLOOD ORDERABLES Final Re sult [facility] [place] [address] * DISCHARGE LABORATORY CUMULATIVE REPORT (12/03/2016 12:00 AM CDT) Narrative 12/03/2016 12:00 AM CDT Ordered by an unspecified provider. Historical Provider LAB BLOOD ORDERABLES Phyllis l Result documented in this encounter Visit Diagnoses Not on filedocumented in this encounter Care Teams Software Installer Relationship Specialty Start Date End Date Joaquin Melchor MD [address] [place] [address] PCP - General 06/25/16 06/08/18 documented as of this encounter
--- OUTSIDE RECORDS SUMMARY | 2024-04-29 21:24 | XMS_ITS | Encounter Summary ---
Author Organization [facility] Facility Care Team Providers Care Deputy Sheriff Chief Name Role Phone Unavailable Primary Care Provider Unavailabl e Encounter Details Date Type Department Care Team (Late st Contact Info) Description 01/04/2015 9:52 AM CDT - 01/04/2015 4:00 PM CDT Hospital Encounter [facility] Madalyn Teresa, WOOL SAMPLER [address] [place] [address] Pain in joint, lower leg Social History Tobacco Use Types Packs/Day Years Used Date Smoking Tobacco: Never Comments Unknown Sex and Gender Information Value Date Recorded Sex Assigned at Not on file Legal Sex Female 3:59 AM COMPLAINT SPECIALIST Gender Identity Female 05/13/2021 4:21 PM COMPLAINT SPECIALIST Sexual Orientation Not on file documented [...] F FINAL REPORT ACC# ??Date Time ??Exam [id number] Jan 04, 2015 10:14:00 20311 Knee 3 views R [id number] Jan 04, 2015 10:14:00 30333 Knee 3 views L EXAMINATION: ? 1. [...] Nahid PETERSON on Jan 04 2015 10:18A [id number] Procedure Note Provider, Aldair, - 09/07/2016 Nahid PETERSON FINAL REPORT ACC# Date Time Exam [id number] Jan 04, 2015 10:14:00 [id number] Knee 3 views R [id number] Jan 04, 2015 10:14:00 85164 Knee 3 views L EXAMINATION: 1. Left [...] Nahid PETERSON on Jan 04 2015 10:18A [id number] us Historical Provider IMG XR PROCEDURES Final R esult * KNEE RADIOGRAPHY, FRONTAL (AP), LATERAL, OBLIQUE (01/04/2015 10:14 AM CDT) Anatomical Region Laterality Modality N/A Radiographic Luba ging 01/04/2015 10:1 4 AM CDT Narrative 01/04/2015 10:18 AM CDT Nahid PETERSON FINAL REPORT ACC# ??Date Time ??Exam [id number] Jan 04, 2015 10:14:00 [id number] Knee 3 views R [id number] Jan 04, 2015 10:14:00 99594 Knee 3 views L EXAMINATION: ? 1. [...] Nahid PETERSON on Jan 04 2015 10:18A [id number] Procedure Note Provider, Aldair, - 09/07/2016 Nahid PETERSON FINAL REPORT ACC# Date Time Exam [id number] Jan 04, 2015 10:14:00 51223 Knee 3 views R [id number] Jan 04, 2015 10:14:00 60378 Knee 3 views L EXAMINATION: 1. Left [...] Nahid PETERSON on Jan 04 2015 10:18A [id number] us Historical Provider IMHenna XR PROCEDURES Final R esult documented in this encounter Visit Diagnoses Diagnosis Pain in joint, lower leg documented in this encounter
--- OUTSIDE RECORDS SUMMARY | 2024-04-29 21:24 | XMS_ITS | Encounter Summary ---
Author Organization [facility] Facility Care Team Providers Care Wood Casket Maker Name Role Phone Unavailable Primary Care Provider Unavailabl e Encounter Details Date Type Department Care Team (Late st Contact Info) Description 01/30/2011 - 01/30/2011 11:59 PM CDT Hospital Encounter [facility] Merna Vidal MD [address] [phone] Other screening mammogram Social History Tobacco Use Types Packs/Day Years Used Date Smoking Tobacco: Never Assessed Comments Unknown Sex and Gender Information Value Date Recorded Sex Assigned at Not on file Legal Sex Female 3:59 AM WEIGHT ENGINEER Gender Identity Female 05/13/2021 4:21 PM WEIGHT ENGINEER Sexual Orientation Not on file documented [...]
--- OUTSIDE RECORDS SUMMARY | 2024-04-29 21:24 | XMS_ITS | Encounter Summary ---
Author Organization [facility] Address [address] [place] [address] Phone Care Team Providers Care Board Liner Operator Name Role Phone Joaquin Melchor MD Primary Care Prov ider Encounter Details Date Type Department Care Team (Latest Contact Info) Description 12/09/2017 9:40 AM CDT Office Visit [facility] Endocrinology Metabolism and Lipid [address] [facility] Medicine [address]th [place] [address] [place] [phone] Merna Bell MD [address] [facility] [address] [place] [address] 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, with long-term current use of insulin, unspecified laterality (CMS/HCC) (Primary Dx); Acquired hypothyroidism; Mixed hyperlipidemia Social History Tobacco Use Types Packs/Day Years Used Date Smoking Tobacco: Never Comments Unknown Sex and Gender Information Value Date Recorded Sex Assigned at Not on file Legal Sex Female 3:59 AM MANAGER ER Gender Identity Female 05/13/2021 4:21 PM MANAGER ER Sexual Orientation Not on file documented as [...] MD LAB BLOOD ORDERABLES Final Re sult [facility] * PTH, intact (12/09/2017 10:42 AM CDT) Parathyroid Hormone 46.1 15.0 - 65.0 pg/mL [facility] Blood specimen (specimen) 12/09/2017 10:42 AM CDT 12/09/2017 2:24 PM CDT Merna Bell MD LAB BLOOD ORDERABLES Final Re sult Performing Organization Address [facility] de Phone Number [facility] [...] ORDERABLES Final Re sult Performing Organization Address [facility] de Phone Number [facility] * T4, free (12/09/2017 10:42 AM CDT) Free T4 1.39 0.93 - 1.70 ng/dL [facility] Blood specimen (specimen) 12/09/2017 10:42 AM CDT 12/09/2017 2:24 PM CDT Merna Bell MD LAB BLOOD ORDERABLES Final Re sult Performing Organization Address [facility] de Phone Number [facility] * TSH (12/09/2017 10:42 AM CDT) TSH (Thyrotropin) 1.64 0.50 - 5.00 uIU/mL [facility] Blood specimen (specimen) 12/09/2017 10:42 AM CDT 12/09/2017 2:24 PM CDT Merna Bell MD LAB BLOOD ORDERABLES Final Re sult Performing Organization Address City/[facility]/ZIP Co de Phone Number [facility] [...] MD LAB BLOOD ORDERABLES Final Re sult [facility] [...] 22 added in this encounter Care Teams Board Liner Operator Relationship Specialty Start Date End Date Joaquin Melchor MD [address] [place] [address] PCP - General 06/25/16 06/08/18 documented as of this encounter
--- OUTSIDE RECORDS SUMMARY | 2024-04-29 21:24 | XMS_ITS | Encounter Summary ---
Author Organization [facility] Facility Care Team Providers Care Media Center Director School Name Role Phone Unavailable Primary Care Provider Unavailabl e Encounter Details Date Type Department Care Team (Late st Contact Info) Description 08/01/2009 - 08/01/2009 11:59 PM CDT Hospital Encounter [facility] Merna Vidal MD [address] [phone] Type 2 or unspecified type diabetes mellitus, uncontrolled; Other and unspecified hyperlipidemia Social History Tobacco Use Types Packs/Day Years Used Date Smoking Tobacco: Never Assessed Comments Unknown Sex and Gender Information Value Date Recorded Sex Assigned at Not on file Legal Sex Female 3:59 AM SEAT MENDER Gender Identity Female 05/13/2021 4:21 PM SEAT MENDER Sexual Orientation Not on file documented as [...]
--- OUTSIDE RECORDS SUMMARY | 2024-04-29 21:24 | XMS_ITS | Encounter Summary ---
Author Organization [facility] Facility Care Team Providers Care Food Sales Clerk Name Role Phone Unavailable Primary Care Provider Unavailabl e Encounter Details Date Type Department Care Team (Late st Contact Info) Description 07/31/2006 9:46 AM CDT - 08/01/2006 7:18 PM CDT Hospital Encounter [facility] Vincent Ratliff MD [address] [place] [address] Social History Tobacco Use Types Packs/Day Years Used Date Smoking Tobacco: Never Assessed Comments Unknown Sex and Gender Information Value Date Recorded Sex Assigned at Not on file Legal Sex Female 3:59 AM SPRINKLING SYSTEM IRRIGATOR Gender Identity Female 05/13/2021 4:21 PM SPRINKLING SYSTEM IRRIGATOR Sexual Orientation Not on file documented as [...]
--- OUTSIDE RECORDS SUMMARY | 2024-04-29 21:24 | XMS_ITS | Encounter Summary ---
Author Organization [facility] Facility Care Team Providers Care Vendor Representatives Name Role Phone Unavailable Primary Care Provider Unavailabl e Encounter Details Date Type Department Care Team (Late st Contact Info) Description 02/25/2007 - 02/25/2007 11:59 PM CDT Hospital Encounter [facility] Merna Vidal MD [address] [address] Social History Tobacco Use Types Packs/Day Years Used Date Smoking Tobacco: Never Assessed Comments Unknown Sex and Gender Information Value Date Recorded Sex Assigned at Not on file Legal Sex Female 3:59 AM MANAGER DISASTER RECOVERY Gender Identity Female 05/13/2021 4:21 PM MANAGER DISASTER RECOVERY Sexual Orientation Not on file documented as [...]
--- OUTSIDE RECORDS SUMMARY | 2024-04-29 21:24 | XMS_ITS | Encounter Summary ---
Author Organization [facility] Facility Care Team Providers Care Web Mobile Designer Name Role Phone Unavailable Primary Care Provider Unavailabl e Encounter Details Date Type Department Care Team (Late st Contact Info) Description 06/15/2008 - 06/15/2008 11:59 PM STORES ASSISTANT Hospital Encounter [facility] Merna Vidal MD [address] [address] Type 2 or unspecified type diabetes mellitus; Essential hypertension; Other and unspecified hyperlipidemia Social History Tobacco Use Types Packs/Day Years Used Date Smoking Tobacco: Never Assessed Comments Unknown Sex and Gender Information Value Date Recorded Sex Assigned at Not on file Legal Sex Female 3:59 AM STORES ASSISTANT Gender Identity Female 05/13/2021 4:21 PM STORES ASSISTANT Sexual Orientation Not on file documented [...]
--- OUTSIDE RECORDS SUMMARY | 2024-04-29 21:24 | XMS_ITS | Encounter Summary ---
Author Organization [facility] Facility Care Team Providers Care Embedded Software Test Engineer Name Role Phone Unavailable Primary Care Provider Unavailabl e Encounter Details Date Type Department Care Team (Late st Contact Info) Description 06/19/2010 - 06/19/2010 11:59 PM MARKETING EDUCATION TEACHER Hospital Encounter [facility] Merna Vidal MD [address] [address] Type 2 or unspecified type diabetes mellitus; Other and unspecified hyperlipidemia; Vitamin D deficiency Social History Tobacco Use Types Packs/Day Years Used Date Smoking Tobacco: Never Assessed Comments Unknown Sex and Gender Information Value Date Recorded Sex Assigned at Not on file Legal Sex Female 3:59 AM MARKETING EDUCATION TEACHER Gender Identity Female 05/13/2021 4:21 PM MARKETING EDUCATION TEACHER Sexual Orientation Not on file documented [...]
--- OUTSIDE RECORDS SUMMARY | 2024-04-29 21:24 | XMS_ITS | Encounter Summary ---
Author Organization [facility] Healthcare Address [address] [place] [address] Care Team Providers Care Laboratory Veterinarian Name Role Phone Joaquin Melchor MD Primary Care Prov ider Encounter Details Date Type Department Care Team (Latest Contact Info) Description 06/25/2016 2:35 PM TEMPORARY HELP AGENCY REFERRAL CLERK - 06/25/2016 11:59 PM [facility] Hospital Encounter [facility] OP INTERIM [phone] Merna Bell MD [address] [facility] [address] [address] Discharge Disposition: Discharge to home or self care Social History Tobacco Use Types Packs/Day Years Used Date Smoking Tobacco: Never Comments Unknown Sex and Gender Information Value Date Recorded Sex Assigned at Not on file Legal Sex Female 3:59 AM TEMPORARY HELP AGENCY REFERRAL CLERK Gender Identity Female 05/13/2021 4:21 PM TEMPORARY HELP AGENCY REFERRAL CLERK Sexual Orientation Not on file documented [...] on filedocumented in this encounter Care Teams Laboratory Veterinarian Relationship Specialty Start Date End Date Joaquin Melchor MD [address] [place] [address] PCP - General 06/25/16 06/08/18 documented as of this encounter
--- OUTSIDE RECORDS SUMMARY | 2024-04-29 21:24 | XMS_ITS | Encounter Summary ---
Author Organization [facility] Facility Care Team Providers Care Power Screwdriver Operator Name Role Phone Unavailable Primary Care Provider Unavailabl e Encounter Details Date Type Department Care Team (Late st Contact Info) Description 08/27/2006 - 08/27/2006 11:59 PM CDT Hospital Encounter [facility] Merna Vidal MD [address] [address] Social History Tobacco Use Types Packs/Day Years Used Date Smoking Tobacco: Never Assessed Comments Unknown Sex and Gender Information Value Date Recorded Sex Assigned at Not on file Legal Sex Female 3:59 AM ELECTRICAL ELECTRONICS ENGINEER Gender Identity Female 05/13/2021 4:21 PM ELECTRICAL ELECTRONICS ENGINEER Sexual Orientation Not on file documented [...]
--- OUTSIDE RECORDS SUMMARY | 2024-04-29 21:24 | XMS_ITS | Encounter Summary ---
Author Organization [facility] Facility Care Team Providers Care Sheet Folder Name Role Phone Unavailable Primary Care Provider Unavailabl e Encounter Details Date Type Department Care Team (Late st Contact Info) Description 12/16/2007 - 12/16/2007 11:59 PM CDT Hospital Encounter [facility] Merna Vidal MD [address] [address] Social History Tobacco Use Types Packs/Day Years Used Date Smoking Tobacco: Never Assessed Comments Unknown Sex and Gender Information Value Date Recorded Sex Assigned at Not on file Legal Sex Female 3:59 AM METALLURGICAL ENGINEER Gender Identity Female 05/13/2021 4:21 PM METALLURGICAL ENGINEER Sexual Orientation Not on file documented [...]
--- OUTSIDE RECORDS SUMMARY | 2024-04-29 21:24 | XMS_ITS | Encounter Summary ---
Author Organization [facility] Address [address] [place] [address] Phone Care Team Providers Care Recycle Driver Name Role Phone Joaquin Melchor MD Primary Care Prov ider Reason for Visit * Reason Onset Date Comments PA Approval 11/01/2017 Encounter Details Date Type Department Care Team (Late st Contact Info) Description 11/01/2017 Documentation [facility] Endocrinology Metabolism and Lipid [address] [facility] Advanced Medicine 13th [place] [address] [place] [address] Merna Bell MD [address] [facility] [address] [place] [address] PA Approval Social History Tobacco Use Types Packs/Day Years Used Date Smoking Tobacco: Never Comments Unknown Sex and Gender Information Value Date Recorded Sex Assigned at Not on file Legal Sex Female 3:59 AM SHAKE OUT WORKER Gender Identity Female 05/13/2021 4:21 PM SHAKE OUT WORKER Sexual Orientation Not on file documented as of this encounter Progress Notes * Milli Can MA - 11/01/2017 2:31 PM CDT PA approved for pt Celebrex 200mg qty 240 for 90 day valid from 09/30/17-10/30/2018 documented in this encounter Plan of Treatment Not on file documented as of this encounter Visit Diagnoses Not on filedocumented in this encounter Care Teams Recycle Driver Relationship Specialty Start Date End Date Joaquin Melchor MD [address] [place] [address] PCP - General 06/25/16 06/08/18 documented as of this encounter
== END 2024-04-25 16:23 | disposition home or self-care (01) ==
PROVIDERS: Emergency Provider Physician Assistant; PCP Internal Medicine
DX: S62.115A Nondisplaced fracture of triquetrum [cuneiform] bone, left wrist, initial encounter for closed fracture (principal); X58.XXXA Exposure to other specified factors, initial encounter
CPT/HCPCS: 29125; 73130; 99284; A4565

== ENCOUNTER 2024-05-13 08:42 | Emergency (ER) | payer MEDICARE, BC, SELFPAY ==
--- NOTE | ~2024-05-13 | CT_ITS ---
EXAMINATION: CT cervical spine wo con DATE: 05/13/2024 09:25 INDICATION: Headache and neck pain TECHNIQUE: Computed tomography (CT) of the cervical spine was performed without intravenous contrast. Automated exposure control and iterative reconstruction technique were employed. The dose-length pro duct was 357.59 mGy-cm. COMPARISON: None FINDINGS: 5 degrees cervical levocurvature. Sagittal alignment is normal. Vertebral body heights are normal. No fracture. Moderate disc height loss at C4-C5 and C5-C6. Atherosclerotic calcifications at the bilate ral carotid bulbs, cervical soft tissues are otherwise unremarkable. Visualized apices of lungs are c lear. C2-C3: Disc is bulging. There is no uncovertebral joint osteoarthritis. There is mild right and moder ate left facet joint osteoarthritis. There is no neural foraminal stenosis. There is mild central can al stenosis. C3-C4: Disc is mildly bulging. There is mild right uncovertebral joint osteoarthritis. There is moder ate left and moderate to severe right facet joint osteoarthritis. There is minimal bilateral neural f oraminal stenosis. There is mild central canal stenosis. C4-C5: Posterior disc osteophyte complex. There is moderate left and severe right uncovertebral joint osteoarthritis. There is mild bilateral facet joint osteoarthritis. There is mild to moderate right neural foraminal stenosis. There is mild central canal stenosis. C5-C6: Disc is bulging. There is moderate left and severe right uncovertebral joint osteoarthritis. T here is mild bilateral facet joint osteoarthritis. There is mild left and mild to moderate right neur al foraminal stenosis. There is mild central canal stenosis. C6-C7: Disc is bulging with superimposed left paracentral disc extrusion. There is mild bilateral unc overtebral joint osteoarthritis. There is mild right facet joint osteoarthritis. There is mild left n eural foraminal stenosis. There is mild to moderate left-sided predominant central canal stenosis. C7-T1: The disc does not extend beyond the endplate margin. There is no uncovertebral joint osteoarth ritis. There is severe bilateral facet joint osteoarthritis. There is mild bilateral, right greater t johnston left, neural foraminal stenosis. There is no central canal stenosis. IMPRESSION: 1. Moderate cervical spondylosis. No acute osseous abnormality. Reviewed, dictated and finalized at location A. I OPERATION FORMING MACHINE SETTER
--- NOTE | ~2024-05-13 | CT_ITS ---
EXAMINATION: CT brain wo con DATE: 05/13/2024 09:25 INDICATION: Headache and neck pain TECHNIQUE: Computed tomography (CT) of the head was performed without intravenous contrast. Sagittal and coronal reconstructions were performed. The mA was adjusted according to patient size. Iterative reconstruction technique was employed. The dose-length product was 605.33 mGy-cm. COMPARISON: None FINDINGS: No acute intracranial hemorrhage, acute infarction or abnormal extra axial fluid collection. There is moderate scattered white matter hypoattenuation consistent with chronic small vessel ischemic diseas e. Symmetric prominence of the sulci consistent with mild age-appropriate diffuse cerebral volume los s. Ventricles are normal and symmetric. No mass/mass effect. Changes of bilateral intraocular lens re placement. The orbitsand paranasal sinuses are normal. Small right mastoid effusion. IMPRESSION: 1. No acute intracranial process. 2. Age-related changes including mild diffuse volume loss and moderate scattered white matter hypoatt enuation consistent with chronic small vessel ischemic disease. Reviewed, dictated and finalized at location A. VOLTAGE ELECTRICIAN IMPRESSION: 1. No acute intracranial process. 2. Age-related changes including mild diffuse volume loss and moderate scattere d white matter hypoattenuation consistent with chronic small vessel ischemic di sease.
[2024-05-13 08:50] VITALS: BP 131/51; PULSE 81; RESP 16; TEMP 36.6; O2SAT 100
--- NOTE | 2024-05-13 08:56 | PC.NURSE ---
spoke with Jonelle BATISTA regarding pt complaints and VO CT head/neck
[2024-05-13 11:52] VITALS: BP 141/51; PULSE 85; RESP 18; O2SAT 100
--- NOTE | 2024-05-13 13:11 | ED_ITS ---
HPI - General Adult General Chief complaint: Neck Pain/Injury Stated complaint: headache, neck pain Time Seen by Provider: 05/13/24 12:09 History of Present Illness HPI narrative: patient is a 74-year-old female who presents ER with neck pain. Had aching in her neck bilaterally last night and she went to bed. Woke up this morning and increased and she has pain with flexion/extension / rotation. No trauma. No fevers or chills or sweats. No electrical sensation going down her spine. No new upper or lower extremity numbness or weakness. Denies runny nose sore throat or cough. Has not tried any pain medication. Related Data Allergies Allergy/AdvReac Type Severity Reaction Status Date / Time NSAIDS (Non-Steroidal Allergy Unknown Other Verified 05/13/24 11:53 Anti-Inflamma valacyclovir Allergy Unknown Other Verified 05/13/24 11:53 pseudoephedrine Allergy Palpitation Verified 05/13/24 11:53 s Review of Systems Review of Systems: All systems reviewed & are unremarkable except as noted in HPI and below Constitutional: Constitutional: Reports no additional constitutional complaints ENT: Reports system reviewed and no additional complaints, except as documented Cardiovascular: Cardiovascular: Reports no additional cardiovascular complaints Respiratory: Respiratory: Reports no additional respiratory complaints Musculoskeletal: Musculoskeletal: Denies back pain, Denies arthralgias, Denies joint swelling and Reports muscle cramps ( Neck pain) PMFSH Past Medical History Medical History (Updated 05/13/24 @ 14:28 by Ronen Swanson MD) Diabetes Hyperlipidemia Hypertension Social History Social History Smoking status: Never smoker Alcohol intake: never Exam Narrative: GENERAL: Well-appearing, well-nourished, and in no acute distress. HEAD: Normocephalic, atraumatic. ENT: Mucous membranes moist. NECK: No midline tenderness, mild paraspinal muscle tenderness at C3, ROM preserved but with discomfort. EXTREMITIES: Normal range of motion. SKIN: Warm, dry, no rash. NEURO: Alert and oriented x3. PSYCH: Normal mood and affect. Course Course Emergency Course: Pain improving with Tylenol. Will discharge with a hemo muscle relaxers well. Viral testing negative. Vital Signs Vital signs: Vital Signs Temperature 97.8 F 05/13/24 08:50 Pulse Rate 81 01/01/25 08:50 Respiratory Rate 16 05/13/24 08:50 Blood Pressure 131/51 L 05/13/24 08:50 Pulse Oximetry 100 05/13/24 08:50 Oxygen Delivery Room Air 05/13/24 08:50 Temperature 97.8 F 05/13/24 08:50 Pulse Rate 85 05/13/24 11:52 Respiratory Rate 18 05/13/24 11:52 Blood Pressure 141/51 H 05/13/24 11:52 Pulse Oximetry 100 05/13/24 11:52 Oxygen Delivery Room Air 05/13/24 08:50 Medical Decision Making Vital Signs Vital Signs: Vital Signs Temperature 97.8 F 05/13/24 08:50 Pulse Rate 81 05/13/24 08:50 Respiratory Rate 16 05/13/24 08:50 Blood Pressure 131/51 L 05/13/24 08:50 Pulse Oximetry 100 05/13/24 08:50 Oxygen Delivery Room Air 05/13/24 08:50 Temperature 97.8 F 05/13/24 08:50 Pulse Rate 85 05/13/24 11:52 Respiratory Rate 18 05/13/24 11:52 Blood Pressure 141/51 H 05/13/24 11:52 Pulse Oximetry 100 05/13/24 11:52 Oxygen Delivery Room Air 05/13/24 08:50 Lab Data Labs: Lab Results 05/13/24 Range/Units 13:15 Influenza A (RT-PCR) Negative (Negative) Influenza B (RT-PCR) Negative (Negative) RSV (RT-PCR) Negative (Negative) SARS-CoV-2 RNA (RT-PCR) Negative (Negative) Imaging Data Radiologist's impression: ITS Impressions Head CT 05/13/24 09:26 IMPRESSION: 1. No acute intracranial process. 2. Age-related changes including mild diffuse volume loss and moderate scattered white matter hypoattenuation consistent with chronic small vessel ischemic disease. Cervical Spine CT 05/13/24 09:35 IMPRESSION: 1. Moderate cervical spondylosis. No acute osseous abnormality. Discharge Plan Discharge Clinical Impression: Strain of neck muscle Patient Disposition: Home, Self-Care Condition: Stable Instructions: Cervical Strain (ED) Additional Instructions: Please return to the emergency department if you develop severe pain that is not controlled by pain medications or if you are unable to walk because of pain or weakness. Return to the emergency department immediately if you develop fevers, loss of bowel or bladder control (dribbling of urine or having accidents you wouldn't normally have), inability to urinate, numbness of your genital or anal area, or weakness/numbness of your legs or arms as these could all be signs of a serious medical emergency. Patient Language: Divehi Prescriptions: New tizanidine 2 mg capsule 2 mg PO Q8H PRN (Reason: muscle spasticity) Qty: 14 0RF acetaminophen 500 mg capsule 500 mg PO QID PRN (Reason: pain) Qty: 20 0RF No Action cephalexin 500 mg capsule 500 mg PO Q8H 7 Days Qty: 21 0RF cephalexin 500 mg capsule 500 mg PO Q6H 10 Days Qty: 40 0RF tramadol 50 mg tablet 50 mg PO Q6H PRN (Reason: pain) Qty: 15 0RF Follow-up/Referrals: UNKNOWN,DOCTOR [Primary Care Provider] - 1 Week
[2024-05-13] MEDS: ACETAMINOPHEN 325 MG TABLET 650 MG PO (13:14)
[2024-05-13 13:55] LABS: Influenza A QL RT-PCR Negative (Negative); Influenza B QL RT-PCR Negative (Negative); RSV RNA, RT-PCR Negative (Negative); SARS-CoV-2 RNA PCR Negative (Negative)
--- OUTSIDE RECORDS SUMMARY | 2024-05-20 07:45 | XMS_ITS | Clinical Summary ---
Author Organization [facility] Address [address] [place] [address] Care Team Providers Care Suspect Artist Supervisor Name Role Phone Unavailable Primary Care Provider Unavailabl e Source Comments [facility],non-owned Affiliates and Associated Physician Practices is amultiple site organization consisting of ambulatory clinics and hospital sitesin [place] and [place]. This disclosure is being madepursuant to the Care Everywhere program and may not contain all information available regarding this patient. Last updated 18.[facility] Social History Tobacco Use Types Packs/Day Years [...] VACCINE (1 of 2) 1999 PNEUMOCOCCAL VACCINE 50+ (1 of 1 - PCV) 2014 COVID-19 VACCINE ( - 2023-2 5 season) 2024 INFLUENZA VACCINE (#1) 2024 , 03/06/2019, 03/06/2019 Respiratory Syncytial Virus (RSV) Vaccine Pt: or over 60 yrs (1 - 1-dose 75+ series) 2024 DEPRESSION SCREENING 05/13/2024 HEPATITIS B VACCINE Aged Out No longe [...]
--- OUTSIDE RECORDS SUMMARY | 2024-05-20 07:45 | XMS_ITS | Encounter Summary ---
Author Organization [facility] Address [address] [place] [address] Care Team Providers Care Certified Ethical Hacker Name Role Phone Unavailable Primary Care Provider Unavailabl e Encounter Details Date Type Department Care Team (Late st Contact Info) Description 04/17/2005 Orders Only [facility] [address] [place] [address] ProviderAldair MD Social History Tobacco Use Types [...] MICRO EXAM KIM 04/17/2005 10 :36 AM STUDENT SERVICES REP documented in this encounter Results * GROSS + MICRO EXAM (04/17/2005 10:36 AM STUDENT SERVICES REP) Result CASE NUMBER [id number] Comment: ORDERING PHYSICIAN ??JACKSON BOOTH SPECIMEN TYPE [...] approximating inked margin of resection) MS/na RT Oral Hygienist ? na Pathologist ?Ck Roberts M.D. Snomed. ?04/18/2005 1608 <1> CPT code ? 92023,19913 MISCELLANEOUS SAMPLES / Unknown 04/17/2005 10:36 AM STUDENT SERVICES REP 04/17/2005 10:39 AM STUDENT SERVICES REP Historical Provider MD LAB - PATHOLOGY/C YTOLOGY ORDERABLES documented in this encounter Visit Diagnoses Not on filedocumented in this encounter
--- OUTSIDE RECORDS SUMMARY | 2024-05-20 07:45 | XMS_ITS | Clinical Summary ---
Author Organization [facility] Address [address] [place] [address]. [place], [place] [address] [place] [address] Care Team Providers Care Torch Straightener Name Role Phone Elpidio Serrato MD Primary Care Provider [phone] Allergies Active Allergy Reactions Criticality Noted Date Comments Pseudoephedrine Tachycardia Valacyclovir Other (see comment) 08/12/2018 put me in renal failure Medications latanoprost 0.005 % ophthalmic solution Apply 1 drop to eye. 9 Active vitamin D2, ergocalciferol , 98189 UNITS capsule Take 1 capsule (1.25 mg [...] Noted Date Diagnosed Date Congestive heart failure ([facility]) 11/11 Overview (02/25/2024): HFmrEF, last EF per TTE 45%, hypervolemic on exam today. Morbid (severe) obesity due to excess calories 0 08/14/2023 Body mass index (BMI) 40.0-44.9, adult 4 Age-related osteoporosis wit hout current pathological fracture 04/29/2023 Chronic kidney disease (CKD) stage G3b/A1, moderately decreased glomerular filtration rate (GFR) between 30-44 mL/min/1.73 square meter and albuminuria creatinine ratio less than 30* ([facility]) 12/25/2021 Overview (08/14/2023): Last Assessment [...] essential hypertension 02/10/2018 Type 2 diabetes mellitus ([facility]) 12/07 Overview (08/14/2023): Last Assessment [...] changes. Actinic keratosis 07/17/2012 Nonproliferative diabetic retinopathy ([facility] H HS/[facility]) 11/03/2009 Osteoarthritis of knee 12/16/2007 Overview (08/12/2018): Last Assessment & Plan: Follow-up with environmental resource specialist. Hyperlipidemia 07/21/2006 Overview (08/14/2023): Last Assessment & Plan: Lipid abnormalities are improving with treatment. LDL is 97 mg/dl. The patient was referred to the general machine operator. and Pharmacotherapy as ordered. Lipids will be [...] is unchanged. She is less active after long-term. Discussed the patient's BMI. The BMI is too high, and is causing serious morbidities. . General weight loss/lifestyle modification strategies discussed (elicit support from others; identify saboteurs; non-food rewards, etc). Pharmacotherapy as ordered. Given bilateral knee pain, recommended water based exercises Encounters Date Type Department Care Team Description 04/25/2024 Scan [facility] Scanned, Doc Med Group Image (SCAN) 04/17/2024 Scan [facility] INFO SRVCS Scanned, Doc Med Group 03/05/2024 3:00 PM CDT Office Visit [facility] [address] [address] Elpidio Serrato MD Cellulitis (Follow up on cellulitis R foot. ) 03/05/2024 Travel 02/28/[address] [address] Elpidio Serrato MD Wound 02/25/2024 2:20 PM CDT Office Visit [facility] [address] [address] Elpidio Serrato MD ER F/U ([facility] ER f/u 02/19/24 for Rt foot pain/[facility] ER f/u 02/19/24 for cellulitis); Results (Patient would like to talk about results of nerve conduction. ) 02/25/2024 Travel 02/21/2024 Telephone [facility] [address] [address] Elpidio Serrato MD Results; Referral (Neurology ) 02/20/2024 Scan [facility] INFO SRVCS Scanned, Doc Med Group Lab (SCAN) 02/19/2024 11:00 AM CDT Office Visit [facility] Multispecialty Care - [address], [address] [place] [address] Elpidio Serrato MD Govindarajan, Raghav, MD EMG Testing (BUE*ULNAR NERVE PALSY OF LEFT LOWER EXTREMITIES) 02/19/2024 8:08 AM CDT - 02/19/2024 9:49 AM CDT Emergency [facility] [place] [address] Niranjan Zee PA Foot Pain Discharge Disposition: Home or Self Care (Routine Discharge) 02/19/2024 Scan HEALTH INFO SRVCS Scanned, Doc Med Group Image (SCAN) 02/19/2024 Travel from Last 3 Months Immunizations Name Administration [...] 08/12/2018 Pneumococcal(Ppv 23)Aka Pneumovax 04/29/2017 Zoster (Zostavax) [address]1950 Unt/0.65Ml 04/29/2017 Family History Medical History Relation [...] st Contact Info) Description 07/13/2024 1:40 PM CARE TECHNICIAN Office Visit [facility] Medical Group Multispecialty Care - [address], [address] [place] [address] Kirill Montelongo MD [address] [place] [address] Health Maintenance Due Date Last Done Comments [...] 08/12/2018, 04/29/2017 Dexa Scan (General) Completed 12/03/2022, 12/03/2022, 07/13/2020 RSV Immunization or 60+ Years Completed 04/20/2023 [...] Priority Date/Time Associated Diagnosis Comments IMAGE GENERIC 04/25/2024 OUTSIDE LAB (SCAN ORDER) 02/20/2024 EMG Routine 02/19/2024 11:00 AM CDT 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 Anatomical Region Laterality Modality Other 04/25/2024 [facility] Scanned SCANNING Final Resu lt * OUTSIDE LAB (SCAN ORDER) (02/20/2024) Only the most recent of2 resultswithin the time period is included. 02/20/2024 [facility] Scanned SCANNING Final Resu lt * NCVS\EMG (OFallon) (02/19/2024 11:00 AM CDT) Narrative Kirill Montelongo MD - 02/19/2024 11:00 AM CDT Kirill Montelongo MD ? 02/19/2024 ??9:35 PM For sensory nerve conduction studies, the amplitude is measured [id number], the latency reported is the distal peak latency, and the conduction velocity, if measured, is determined from onset latencies and is over the forearm. For motor nerve conduction studies, the amplitude is measured [id number], the latency reported is the distal onset [...] 9:03 AM Narrative 02/19/2024 9:09 AM CDT [place] [address] EXAMINATION: Right foot 3 views EXAM DATE/TIME: [...] Procedure Note Jason Lowery MD - 02/19/[address] [address] EXAMINATION: Right foot 3 views EXAM DATE/TIME: [...] Niranjan BATISTA GENERAL IMAGING Final Resul t from Last 3 Months or Most Recently Relevant to Health Maintenance Insurance [facility] MEDICARE Care Teams Torch Straightener Relationship Specialty Start Date End Date Elpidio Serrato MD [address] [place] [id number] PCP - General INTERNAL MEDICINE 06/19/18
--- OUTSIDE RECORDS SUMMARY | 2024-05-20 07:45 | XMS_ITS | Referral Summary ---
Author Organization [facility] Address [address] [facility] [place] [address] Care Team Providers Care Edi Architect Name Role Phone Unavailable Primary Care Provider Unavailabl e Source Comments [facility],non-owned Affiliates and Associated Physician Practices is amultiple site organization consisting of ambulatory clinics and hospital sitesin [place], [place], [place] and [place]. This disclosure is being madepursuant to the Care Everywhere program and may not contain all information available regarding this patient. Last updated 18.[facility] HeadCount Social History Tobacco Use Types Packs/Day Years Used Date Smoking Tobacco: Never Assessed Sex and Gender Information Value Date Recorded Sex Assigned at Not on file Gender Identity Not on file Sexual Orientation Not on file Plan of Treatment Not on file
--- OUTSIDE RECORDS SUMMARY | 2024-05-20 07:45 | XMS_ITS | Encounter Summary ---
Author Organization [facility] Address [address] [place] [address]. [place], [place] [address] [place] [address] Care Team Providers Care Exterminator Termite Name Role Phone Elpidio Serrato MD Primary Care Provider [phone] Encounter Details Date Type Department Care Team [...] st Contact Info) Description 07/13/2024 1:40 PM DIAGNOSTIC SALES SPECIALIST Office Visit [facility] Medical Group Multispecialty Care - [address], [address] [place] [address] Kirill Montelongo MD [address] [place] [address] documented as of this encounter Visit Diagnoses Not on filedocumented in this encounter Additional Health Concerns Assessment Noted Time PHQ-9 Depression Total Score: 0 08/14/19 24 7:35 AM CDT documented as of this encounter Care Teams Exterminator Termite Relationship Specialty Start Date End Date Elpidio Serrato MD [address] [place] [address] PCP - General INTERNAL MEDICINE 06/19/18 documented as of this encounter
--- OUTSIDE RECORDS SUMMARY | 2024-05-20 07:45 | XMS_ITS | Encounter Summary ---
Author Organization [facility] Address [address] [place] [address]. [place], [place] [address] [place] [address] Care Team Providers Care Steamer Operator Name Role Phone Elpidio Serrato MD Primary Care Provider [phone] Reason for Visit * Reason Comments Image (SCAN) Encounter Details Date Type Department Care Team (Latest Contact Info) Description 04/25/2024 Scan HEALTH INFO SRVCS Scanned, Doc Med [...] st Contact Info) Description 07/13/2024 1:40 PM DOCUMENTATION MANAGER Office Visit [facility] Medical Group Multispecialty Care - [facility] [address] [facility], [address] [place] [address] Kirill Montelongo MD [address] [place] [address] documented as of this encounter Procedures Procedure Name Priority Date/Time Associated Diagnosis Comments IMAGE GENERIC 04/25/2024 documented in this encounter Results * IMAGE GENERIC (04/25/2024) Anatomical Region Laterality Modality Other 04/25/2024 us Doc Med Group Scanned SCANNING Final Resu lt documented in this encounter Visit Diagnoses Not on filedocumented in this encounter Additional Health Concerns Assessment Noted Time PHQ-9 Depression Total Score: 0 08/14/19 24 7:35 AM CDT documented as of this encounter Care Teams Steamer Operator Relationship Specialty Start Date End Date Elpidio Serrato MD [address] [place] [address] PCP - General INTERNAL MEDICINE 06/19/18 documented as of this encounter
--- OUTSIDE RECORDS SUMMARY | 2024-05-20 07:45 | XMS_ITS | Encounter Summary ---
Author Organization [facility] Address [address] [place] [address]. [place], [place] [address] [place] [address] Care Team Providers Care Hat Cone Inspector Name Role Phone Elpidio Serrato MD Primary Care Provider [phone] Encounter Details Date Type Department Care Team (Latest Contact Info) Description 04/17/2024 Scan HEALTH INFO SRVCS Scanned, Doc Med [...] st Contact Info) Description 07/13/2024 1:40 PM PROVIDER RELATIONS REP Office Visit [facility] Medical Group Multispecialty Care - [address], [address] [place] [address] Kirill Montelongo MD 3 [place] [address] documented as of this encounter Visit Diagnoses Not on filedocumented in this encounter Additional Health Concerns Assessment Noted Time PHQ-9 Depression Total Score: 0 08/14/19 24 7:35 AM CDT documented as of this encounter Care Teams Hat Cone Inspector Relationship Specialty Start Date End Date Elpidio Serrato MD [address] [place] [address] PCP - General INTERNAL MEDICINE 06/19/18 documented as of this encounter
--- OUTSIDE RECORDS SUMMARY | 2024-05-20 07:45 | XMS_ITS | Encounter Summary ---
Author Organization [facility] Address [address] [facility] [address] Care Team Providers Care Tile Molder Name Role Phone Unavailable Primary Care Provider Unavailabl e Encounter Details Date Type Department Care Team (Late st Contact Info) Description 02/17/1998 Orders Only [facility] - Laboratory [address] [facility] [place] [address] ProviderAldair MD Social History Tobacco Use Types [...] 2:07 PM CDT) Result CASE NUMBER [id number] Comment: ORDERING PHYSICIAN ??JACKSON BALLARD SPECIMEN TYPE ?PAP Smear Date ? 02/17/1998 Procedure ?Cervical/Endocervical, 1 Vial for Thin Prep Received Specimen Adequacy ?Satisfactory for Evaluation but Limited No endocervical component in a non-atrophic cervical smear. Categorization ? Within Normal Limits Snomed. ?02/23/1998 1621 <1> Import Customer Service Manager ? Iris Stewart(ASCP) PAP Footnote ? The [...]
--- OUTSIDE RECORDS SUMMARY | 2024-05-20 07:45 | XMS_ITS | Patient Health Summary ---
Author Organization [facility] [employer] Address [address] [facility] [place] [address] Care Team Providers Care Commercial Loan Specialist Name Role Phone Unavailable Primary Care Provider Unavailabl e Note from [facility],non-owned Affiliates and Associated Physician Practices is amultiple site organization consisting of ambulatory clinics and hospital sitesin [place], [place], [place] and [place]. This disclosure is being madepursuant to the Care Everywhere program and may not contain all information available regarding this patient. Last updated 18.[facility] Social History Tobacco Use Types Packs/Day Years Used Date Smoking Tobacco: Never Assessed Sex and Gender Information Value Date Recorded Sex Assigned at Not on file Gender Identity Not on file Sexual Orientation Not on file Procedures * GROSS + MICRO EXAM(Performed 04/17/2005) * CYTOLOGY SMEAR PAP THIN PREP(Performed 02/17/1998) Results * GROSS + MICRO EXAM (04/17/2005 10:36 AM MERGERS AND ACQUISITIONS CONSULTANT) Result CASE NUMBER [id number] Comment: ORDERING PHYSICIAN ??JACKSON BALLARD SPECIMEN TYPE [...] approximating inked margin of resection) MS/na RT Colorer Machine ? na Pathologist ?Ck Roberts M.D. Snomed. ?04/18/2005 1608 <1> CPT code ? 35175,53484 MISCELLANEOUS SAMPLES / Unknown 04/17/2005 10:36 AM MERGERS AND ACQUISITIONS CONSULTANT 04/17/2005 10:39 AM MERGERS AND ACQUISITIONS CONSULTANT Historical Provider LAB - PATHOLOGY/C YTOLOGY ORDERABLES * CYTOLOGY SMEAR PAP THIN PREP (02/17/1998 2:07 PM CDT) Result CASE NUMBER [id number] Comment: ORDERING PHYSICIAN ??JACKSON ABLLARD SPECIMEN TYPE ?PAP Smear Date ? 02/17/1998 Procedure ?Cervical/Endocervical, 1 Vial for Thin Prep Received Specimen Adequacy ?Satisfactory for Evaluation but Limited No endocervical component in a non-atrophic cervical smear. Categorization ? Within Normal Limits Snomed. ?02/23/1998 1621 <1> Brake Assembler ? Iris Stewart(ASCP) PAP Footnote ? The [...]
--- OUTSIDE RECORDS SUMMARY | 2024-05-20 07:46 | XMS_ITS | Encounter Summary ---
Author Organization [facility] Address [address] [place] [address]. [place], [place] [address] [place] [address] Care Team Providers Care Manager Metal Name Role Phone Elpidio Serrato MD Primary Care Provider [phone] Reason for Referral * Consultation (Routine) - New Request Specialty Diagnoses / Procedures Referred By Constantino alvarado Referred To Contact NEUROLOGY Diagnoses Ulnar neuropathy of left upper extremity Procedures OFFICE/OUTPATIENT NEW LOW MDM 30-44 MINUTES OFFICE/OUTPT VISIT,NEW,LEVL IV OFFICE/OUTPT VISIT,NEW,LEVL V OFFICE/OUTPT VISIT,EST,LEVL III OFFICE/OUTPT VISIT,EST,LEVL IV OFFICE/OUTPT VISIT,EST,LEVL V Elpidio Serrato MD [address] [place] [address] Phone: tel: fax: [facility] Multispecialty Care - [facility] [address] [facility], [address] [place] [address] Phone: tel: Referral ID Status Reason Start Date Expiration Date Visits Requested Visits Authorized [id number] New Request Specialty Services 03/23/2025 1 1 Reason for Visit * Reason Onset Date Comments Results 02/21/2024 Referral 02/21/2024 Neurology Encounter Details Date Type Department Care Team (Late st Contact Info) Description 02/21/2024 Telephone [facility] Family [facility] Internal Medicine [facility] [address] [place] [phone] Elpidio Serrato MD [address] [place] [address] Results; Referral (Neurology ) Social History Tobacco [...] in FAMILY PRACTICE was on: 02/10/[address] [facility] Future appointment scheduled: Future Appointments Date Time Provider Department Center 02/25/2024 2:20 PM Elpidio Serrato MD [id number] * Ninoska Springer MA - [...] st Contact Info) Description 07/13/2024 1:40 PM CAR SHIFTER Office Visit [facility] Medical Group Multispecialty Care - [facility] [address] [facility], [address] [place] [address] Kirill Montelongo MD 3 [place] [address] Scheduled Referrals Name Type Priority Associated Diagnoses [...] documented as of this encounter Care Teams Manager Metal Relationship Specialty Start Date End Date Elpidio Serrato MD [address] [place] [address] PCP - General INTERNAL MEDICINE 06/19/18 documented as of this encounter
--- OUTSIDE RECORDS SUMMARY | 2024-05-20 07:46 | XMS_ITS | Encounter Summary ---
Author Organization [facility] Address [address] [place] [address]. [place], [place] [address] [place] [address] Care Team Providers Care Bath Steward/Stewardess Name Role Phone Elpidio Serrato MD Primary Care Provider [phone] Encounter Details Date Type Department Care Team [...] st Contact Info) Description 07/13/2024 1:40 PM SALES FINANCIAL ANALYST Office Visit [facility] Medical Group Multispecialty Care - [facility] [address] [facility], [address] [place] [address] Kirill Montelongo MD [address] [place] [address] documented as of this encounter Visit Diagnoses Not on filedocumented in this encounter Additional Health Concerns Assessment Noted Time PHQ-9 Depression Total Score: 0 06/12/19 22 9:09 AM SALES FINANCIAL ANALYST documented as of this encounter Care Teams Bath Steward/Stewardess Relationship Specialty Start Date End Date Elpidio Serrato MD [address] [place] [id number] PCP - General INTERNAL MEDICINE 06/19/18 documented as of this encounter
--- OUTSIDE RECORDS SUMMARY | 2024-05-20 07:46 | XMS_ITS | Encounter Summary ---
Author Organization [facility] Address [address] [place] [address]. [place], [place] [address] [place] [address] Care Team Providers Care Athletic Monitor Name Role Phone Elpidio Serrato MD Primary Care Provider [phone] Reason for Visit * Reason Onset Date Comments Radiology Results 11/28/2021 Encounter Details Date Type Department Care Team (Late st Contact Info) Description 11/28/2021 Telephone [facility] Medical Group Family & Internal Medicine [address] [place] [address] Elpidio Serrato MD [address] [place] [address] Radiology Results Social History Tobacco Use [...] st Contact Info) Description 07/13/2024 1:40 PM HORIZONTAL BORING MILL OPERATOR Office Visit [facility] Medical Group Multispecialty Care - [facility] [address] [facility], [address] [place] [address] Kirill Montelongo MD 3 [place] [address] documented as of this encounter Visit Diagnoses Not on filedocumented in this encounter Additional Health Concerns Assessment Noted Time PHQ-9 Depression Total Score: 0 06/12/19 22 9:09 AM HORIZONTAL BORING MILL OPERATOR documented as of this encounter Care Teams Athletic Monitor Relationship Specialty Start Date End Date Elpidio Serrato MD [address] [place] [address] PCP - General INTERNAL MEDICINE 06/19/18 documented as of this encounter
--- OUTSIDE RECORDS SUMMARY | 2024-05-20 07:46 | XMS_ITS | Encounter Summary ---
Author Organization [facility] Address [address] [place] [address]. [place], [place] [address] [place] [address] Care Team Providers Care Garbage Truck Dispatcher Name Role Phone Elpidio Serrato MD Primary Care Provider [phone] Encounter Details Date Type Department Care Team (Late st Contact Info) Description 02/28/2022 8:40 AM CDT Flu/Imm Clinic [facility] Medical Group Family & Internal Medicine [address] [place] [address] Elpidio Serrato MD [address] [place] [address] Social History Tobacco Use Types Packs/Day [...] st Contact Info) Description 07/13/2024 1:40 PM EXTRACTOR PULLER Office Visit [facility] Medical Group Multispecialty Care - [facility] [address] [facility], [address] [place] [address] Kirill Montelongo MD [address] [place] [address] documented as of this encounter Visit Diagnoses Diagnosis Need for prophylactic vaccination against viral disease- Primary Need for prophylactic vaccination and inoculation against other viral diseases Need for prophylactic vaccination and inoculation against influenza documented in this encounter Additional Health Concerns Assessment Noted Time PHQ-9 Depression Total Score: 0 06/12/19 22 9:09 AM EXTRACTOR PULLER documented as of this encounter Care Teams Garbage Truck Dispatcher Relationship Specialty Start Date End Date Elpidio Serrato MD [address] [place] [address] PCP - General INTERNAL MEDICINE 06/19/18 documented as of this encounter
--- OUTSIDE RECORDS SUMMARY | 2024-05-20 07:46 | XMS_ITS | Encounter Summary ---
Author Organization [facility] Address [facility] [facility]. 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 Procedures [facility] Elpidio Serrato MD [address] [place] [address] Phone: tel: fax: Kirill Montelongo MD [address] [place] [address] Phone: tel: fax: Referral ID Status Reason Start Date Expiration Date V isits Requested Visits Authorized [id number] Closed Office Procedure 02/10/2024 02/09/2025 1 1 Encounter Details Date Type Department Care Team (Latest Contact Info) Description 02/19/2024 11:00 AM CDT Office Visit [facility] Multispecialty Care - [address], [address] [place] [address] Elpidio Serrato MD [address] [place] [address] Kirill Montelongo MD [address] [place] [address] EMG Testing (BUE*ULNAR NERVE PALSY OF LEFT [...] nerve conduction studies, the amplitude is measured [id number], the latency reported is the distal peak latency, and the conduction velocity, if measured, is determined from onset latencies and is over the forearm. For motor nerve conduction studies, the amplitude is measured [id number], the latency reported is the distal onset [...] Contact Info) Description 07/13/2024 1:40 PM NURSING CONSULTANT Office Visit [facility] Multispecialty Care - [facility] [address] [facility], [address] [place] [address] Kirill Montelongo MD [address] [place] [address] Scheduled Orders Name Type Priority Associated Diagnoses [...] nerve conduction studies, the amplitude is measured [id number], the latency reported is the distal peak latency, and the conduction velocity, if measured, is determined from onset latencies and is over the forearm. For motor nerve conduction studies, the amplitude is measured [id number], the latency reported is the distal onset [...] documented as of this encounter Care Teams Personal Lines Insurance Advisor Relationship Specialty Start Date End Date Elpidio Serrato MD [address] [place] [address] PCP - General INTERNAL MEDICINE 06/19/18 documented as of this encounter
--- OUTSIDE RECORDS SUMMARY | 2024-05-20 07:46 | XMS_ITS | Encounter Summary ---
Author Organization [facility] Address [address] [place] [address]. [place], [place] [address] [place] [address] Care Team Providers Care Iron Miner Name Role Phone Elpidio Serrato MD Primary Care Provider [phone] Encounter Details Date Type Department Care Team [...] st Contact Info) Description 07/13/2024 1:40 PM ORNAMENTAL METAL WORKER APPRENTICE Office Visit [facility] Medical Group Multispecialty Care - [address], [address] [place] [address] Kirill Montelongo MD 3 [place] [address] documented as of this encounter Visit Diagnoses Not on filedocumented in this encounter Additional Health Concerns Assessment Noted Time PHQ-9 Depression Total Score: 0 08/14/19 24 7:35 AM CDT documented as of this encounter Care Teams Iron Miner Relationship Specialty Start Date End Date Elpidio Serrato MD [address] [place] [address] PCP - General INTERNAL MEDICINE 06/19/18 documented as of this encounter
--- OUTSIDE RECORDS SUMMARY | 2024-05-20 07:46 | XMS_ITS | Encounter Summary ---
Author Organization [facility] Address [address] [place] [address]. [place], [place] [address] [place] [address] Care Team Providers Care Bss Solution Architect Name Role Phone Elpidio Serrato MD Primary Care Provider [phone] Encounter Details Date Type Department Care Team [...] st Contact Info) Description 07/13/2024 1:40 PM HORTICULTURAL WORKER Office Visit [facility] Medical Group Multispecialty Care - [address], [address] [place] [address] Kirill Montelongo MD 3 [place] [address] documented as of this encounter Visit Diagnoses Not on filedocumented in this encounter Additional Health Concerns Assessment Noted Time PHQ-9 Depression Total Score: 0 08/14/19 24 7:35 AM CDT documented as of this encounter Care Teams Bss Solution Architect Relationship Specialty Start Date End Date Elpidio Serrato MD [address] [place] [address] PCP - General INTERNAL MEDICINE 06/19/18 documented as of this encounter
--- OUTSIDE RECORDS SUMMARY | 2024-05-20 07:46 | XMS_ITS | Encounter Summary ---
Author Organization [facility] Address [address] [place] [address]. [place], [place] [address] [place] [address] Care Team Providers Care Java Lead Architect Name Role Phone Elpidio Serrato MD Primary Care Provider Reason for Visit * Reason Comments ER F/U [facility] ER f/u 02/19/24 f or Rt foot painAnderson ER f/u 02/19/24 for cellulitis Results Patient would like t o talk about results of nerve conduction. Encounter Details Date Type Department Care Team (Late st Contact Info) Description 02/25/2024 2:20 PM CDT Office Visit [facility] Medical Group Family & Internal Medicine - [address] [phone] Elpidio Serrato MD [address] [place] [address] ER F/U ([facility] ER f/u 02/19/24 for [...] Progress Note Reason for Visit: ER F/U ([facility] ER f/u 02/19/24 for Rt foot pain/[place] ER f/u 02/19/24 for cellulitis) and Results (Patient would like to talk about results of nerve conduction. ) History of Present Illness: She is here today for follow-up from the wound and ER visits. She states that she initially went to the emergency room at [place] for right foot pain andswelling. She had [...] she went to the emergency room at [facility]. At [facility] she was diagnosed with cellulitis and started [...] tablet (8.6 mg total). vitamin D2, ergocalciferol, 32254 UNITS capsule Take 1 capsule (1.25 mg total) by mouth weekly. No current facility-administered medications on file prior to visit. Allergies: Allergies Allergen Reactions Pseudoephedrine Tachycardia Valacyclovir Other (see comment) put me in renal failure Medical History: Past Medical History: Diagnosis Date Cataract Closed tibia fracture Diabetes mellitus ([facility]) Disease of thyroid gland Glaucoma Hypertension Surgical History: Past Surgical History: Procedure Laterality Date APPENDECTOMY CABG, ARTERIAL, THREE 01/20/2024 Performed at [facility] by Dr. Treviño CARPAL TUNNEL [...] congestive heart failure, unspecified heart failure type ([facility]/HCC) Chronic Recommendations and Plan: 1. Cellulitis of right foot (Primary) Finish antibiotics as prescribed Encouraged to establish with podiatry for toenail care due to the inability to cut her own toenails Call if not improving or if worsening. 2. Benign essential hypertension Well controlled, continue with present management. 3. Chronic congestive heart failure, unspecified heart failure type ([facility]) Doing well, continue with same medications. I personally spent a total of 31 minutes on the day of the encounter. This includes pqtd-ng-ipex and qlo-thwf-tg-face time I provided on the day of the encounter & excludes time spent performing separately reportable services. Orders Placed This Encounter cephALEXin (KEFLEX) 500 MG capsule PCP: ELPIDIO SERRATO MD 02/25/2024 documented in this encounter Plan of Treatment Upcoming Encounters Date Type Department Care Team (Late st Contact Info) Description 07/13/2024 1:40 PM MEDICAL OFFICE TECHNOLOGY INSTRUCTOR Office Visit [facility] Group Multispecialty Care - [facility] 3 [facility], [address] [place] [address] Kirill Montelongo MD 3 [place] [address] documented as of this encounter Visit Diagnoses Diagnosis Cellulitis of right foot- Primary Cellulitis and abscess of foot, except toes Benign essential hypertension Essential hypertension, benign Chronic congestive heart failure, unspecified heart failure type ([facility]) documented in this encounter Additional Health Concerns Assessment Noted Time PHQ-9 Depression Total Score: 0 08/14/19 24 7:35 AM CDT documented as of this encounter Care Teams Java Lead Architect Relationship Specialty Start Date End Date Elpidio Serrato MD [address] [place] [address] PCP - General INTERNAL MEDICINE 06/19/18 documented as of this encounter
--- OUTSIDE RECORDS SUMMARY | 2024-05-20 07:46 | XMS_ITS | Encounter Summary ---
Author Organization [facility] Address [address] [place] [address]. [place], [place] [address] [place] [address] Care Team Providers Care Outsole Leveler Name Role Phone Elpidio Serrato MD Primary Care Provider [phone] Encounter Details Date Type Department Care Team [...] st Contact Info) Description 07/13/2024 1:40 PM CLINICAL NURSING COORDINATOR Office Visit [facility] Medical Group Multispecialty Care - [facility] 3 [facility], [address] [place] [address] Kirill Montelongo MD 3 [place] [address] documented as of this encounter Visit Diagnoses Not on filedocumented in this encounter Additional Health Concerns Assessment Noted Time PHQ-9 Depression Total Score: 0 06/12/19 22 9:09 AM CLINICAL NURSING COORDINATOR documented as of this encounter Care Teams Outsole Leveler Relationship Specialty Start Date End Date Elpidio Serrato MD [address] [place] [address] PCP - General INTERNAL MEDICINE 06/19/18 documented as of this encounter
--- OUTSIDE RECORDS SUMMARY | 2024-05-20 07:46 | XMS_ITS | Encounter Summary ---
Author Organization [facility] Address [address] [place] [address]. [place], [place] [address] [place] [address] Care Team Providers Care Personalized Living Manager Nurse Name Role Phone Elpidio Serrato MD Primary Care Provider [phone] Encounter Details Date Type Department Care Team [...] st Contact Info) Description 07/13/2024 1:40 PM KNIFE GLAZER Office Visit [facility] Medical Group Multispecialty Care - [address], [address] [place] [phone] Kirill Montelongo MD 3 [place] [address] documented as of this encounter Visit Diagnoses Not on filedocumented in this encounter Additional Health Concerns Assessment Noted Time PHQ-9 Depression Total Score: 0 08/14/19 24 7:35 AM CDT documented as of this encounter Care Teams Personalized Living Manager Nurse Relationship Specialty Start Date End Date Elpidio Serrato MD [address] [place] [address] PCP - General INTERNAL MEDICINE 06/19/18 documented as of this encounter
--- OUTSIDE RECORDS SUMMARY | 2024-05-20 07:46 | XMS_ITS | Encounter Summary ---
Author Organization [facility] Address [address] [place] [address]. [place], [place] [address] [place] [address] Care Team Providers Care Manager [place] Name Role Phone Elpidio Serrato MD Primary Care Provider [phone] Encounter Details Date Type Department Care Team [...] st Contact Info) Description 07/13/2024 1:40 PM CTRS Office Visit [facility] Medical Group Multispecialty Care - [address], [address] [place] [address] Kirill Montelongo MD 3 [place] [address] documented as of this encounter Visit Diagnoses Not on filedocumented in this encounter Additional Health Concerns Assessment Noted Time PHQ-9 Depression Total Score: 0 08/14/19 24 7:35 AM CDT documented as of this encounter Care Teams Manager [place] Relationship Specialty Start Date End Date Elpidio Serrato MD [address] [place] [address] PCP - General INTERNAL MEDICINE 06/19/18 documented as of this encounter
--- OUTSIDE RECORDS SUMMARY | 2024-05-20 07:46 | XMS_ITS | Encounter Summary ---
Author Organization [facility] Address [address] [place] [address]. [place], [place] [address] [place] [address] Care Team Providers Care Monument Setter Name Role Phone Elpidio Serrato MD Primary Care Provider [phone] Encounter Details Date Type Department Care Team [...] st Contact Info) Description 07/13/2024 1:40 PM LIBRARIAN HELPER Office Visit [facility] Medical Group Multispecialty Care - [address], [address] [place] [address] Kirill Montelongo MD 3 [place] [address] documented as of this encounter Visit Diagnoses Not on filedocumented in this encounter Additional Health Concerns Assessment Noted Time PHQ-9 Depression Total Score: 0 08/14/19 24 7:35 AM CDT documented as of this encounter Care Teams Monument Setter Relationship Specialty Start Date End Date Elpidio Serrato MD [address] [place] [address] PCP - General INTERNAL MEDICINE 06/19/18 documented as of this encounter
--- OUTSIDE RECORDS SUMMARY | 2024-05-20 07:46 | XMS_ITS | Encounter Summary ---
Author Organization [facility] Address [address] [place] [address]. 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 Patient notes she has numbness/ tingling in arm, decreased strength in hand and inability to make a fist with left hand. Encounter Details Date Type Department Care Team (Late st Contact Info) Description 02/10/2024 1:00 PM CDT Office Visit [facility] Medical Group Family & Internal Medicine [address] [address] Elpidio Serrato MD [address] [place], [place] [phone] Arm Pain (Patient c/o Lt Arm pain since CABG X3 performed at [facility]. Patient notes she has numbness/ [...] documented in this encounter Progress Notes * Eplidio Serrato MD - 02/10/2024 1:00 PM CDT Images from the original note were not included. Office Progress Note Reason for Visit: Arm Pain (Patient c/o Lt Arm pain since CABG X3 performed at [facility]. Patient notes she has numbness/ [...] tablet (8.6 mg total). vitamin D2, ergocalciferol, 88877 UNITS capsule Take 1 capsule (1.25 mg total) by mouth weekly. Glucose Blood test strip by in vitro route. No current facility-administered medications on file prior to visit. Allergies: Allergies Allergen Reactions Pseudoephedrine Tachycardia Valacyclovir Other (see comment) put me in renal failure Medical History: Past Medical History: Diagnosis Date Cataract Closed tibia fracture Diabetes mellitus ([facility]) Disease of thyroid gland Glaucoma Hypertension Surgical History: Past Surgical History: Procedure Laterality Date APPENDECTOMY CABG, ARTERIAL, THREE 01/20/2024 Performed at [facility] by Dr. Treviño CARPAL TUNNEL [...] the day of the encounter. This includes gvod-df-apld and yhu-nouw-wl-face time I provided on the day of [...] st Contact Info) Description 07/13/2024 1:40 PM CLOTH OPENER HAND Office Visit [facility] Medical Group Multispecialty Care - [facility] 3 [facility], [address] [place] [phone] Kirill Montelongo MD 3 [place] [address] documented as of this encounter Results * NCVS\EMG ([facility]on) (02/19/2024 11:00 AM CDT) Narrative Kirill Montelongo MD - 02/19/2024 11:00 AM CDT Kirill Montelongo MD ? 02/19/2024 ??9:35 PM For sensory nerve conduction studies, the amplitude is measured ukie-zi-kpss, the latency reported is the distal peak latency, and the conduction velocity, if measured, is determined from onset latencies and is over the forearm. For motor nerve conduction studies, the amplitude is measured zrrfkncm-ny-tnci, the latency reported is the distal onset [...] documented as of this encounter Care Teams Application Trainer Relationship Specialty Start Date End Date Elpidio Serrato MD [address] [place] [address] PCP - General INTERNAL MEDICINE 06/19/18 documented as of this encounter
--- OUTSIDE RECORDS SUMMARY | 2024-05-20 07:46 | XMS_ITS | Encounter Summary ---
Author Organization [facility] Address [address] [place] [address]. [place], [place] [address] [place] [address] Care Team Providers Care Field Contact Technician Name Role Phone Elpidio Serrato MD Primary Care Provider [phone] Encounter Details Date Type Department Care Team [...] st Contact Info) Description 07/13/2024 1:40 PM QUICKBOOKS BOOKKEEPER Office Visit [facility] Medical Group Multispecialty Care - [address], [address] [place] [address] Kirill Montelongo MD 3 [place] [address] documented as of this encounter Visit Diagnoses Not on filedocumented in this encounter Additional Health Concerns Assessment Noted Time PHQ-9 Depression Total Score: 0 08/14/19 24 7:35 AM CDT documented as of this encounter Care Teams Field Contact Technician Relationship Specialty Start Date End Date Elpidio Serrato MD [address] [place] [address] PCP - General INTERNAL MEDICINE 06/19/18 documented as of this encounter
--- OUTSIDE RECORDS SUMMARY | 2024-05-20 07:46 | XMS_ITS | Encounter Summary ---
Author Organization [facility] Address [address] [place] [address]. [place], [place] [address] [place] [address] Care Team Providers Care Hoisting Engineer Pile Driving Name Role Phone Elpidio Serrato MD Primary Care Provider [phone] Reason for Visit * Reason Comments Foot Pain Encounter Details Date Type Department Care Team (Late st Contact Info) Description 02/19/2024 8:08 AM CDT - 02/19/2024 9:[address] [facility] [place] [address] Niranjan Zee PA [address] [place] [address] Foot Pain Discharge Disposition: Home or Self [...] through Care Everywhere. * Osteoarthritis Discharge Instructions (Sudanese) documented in this encounter Medications at Time [...] (8.6 mg total). 02/05/2024 vitamin D2, ergocalciferol, 60034 UNITS capsule Take 1 capsule (1.25 mg [...] 02/05/24 Default History Genericprovider vitamin D2, ergocalciferol, 91366 UNITS capsule Take 1 capsule (1.25 mg total) by mouth weekly. 08/07/10 Doc [facility] Abstract PAST MEDICAL HISTORY: Past Medical History: Diagnosis Date Cataract Closed tibia fracture Diabetes mellitus ([facility]) Disease of thyroid gland Glaucoma Hypertension PAST [...] FOOT RT 3V Final Result by User, [id number] (02/18 911) [address] [address] EXAMINATION: Right foot 3 views EXAM DATE/TIME: [...] daily., Starting 02/19/2024, Eprescribe Class: Eprescribe Pharmacy: [facility] [place] [address] [facility] (Ph #: [phone]) methylPREDNISolone, CRISTIANE, (MEDROL DOSEPAK) 4 MG tablet 6 TABLETS ON DAY ONE, 5 TABLETS DAY TWO, 4 TABLETS DAY THREE, 3 TABLETS DAY FOUR, 2 TABLETS DAY FIVE, AND 1 TABLET DAY SIX, Eprescribe Class: Eprescribe Pharmacy: [facility]/pharmacy #[address] [place] [address] [facility] (Ph #: [phone]) Disposition: Discharge Follow-Up: Elpidio Serrato MD [address] [place] [address] Schedule an appointment as soon as possible [...] st Contact Info) Description 07/13/2024 1:40 PM WALKING DRAGLINE OILER Office Visit [facility] Medical Group Multispecialty Care - [facility] 3 [facility], [address] [place] [address] Kirill Montelongo MD 3 [place] [address] documented as of this encounter Procedures Procedure [...] 9:03 AM Narrative 02/19/2024 9:09 AM CDT [address] [address] EXAMINATION: Right foot 3 views EXAM DATE/TIME: [...] Note Jason Lowery MD - 02/19/2024 [facility] [address] [place], [place] [address] EXAMINATION: Right foot 3 views EXAM DATE/TIME: [...] documented as of this encounter Care Teams Hoisting Engineer Pile Driving Relationship Specialty Start Date End Date Elpidio Serrato MD [address] [place] [address] PCP - General INTERNAL MEDICINE 06/19/18 documented as of this encounter
--- OUTSIDE RECORDS SUMMARY | 2024-05-20 07:46 | XMS_ITS | Encounter Summary ---
Author Organization [facility] Address [address] [place] [address]. [place], [place] [address] [place] [address] Care Team Providers Care Application Packager Name Role Phone Elpidio Serrato MD Primary Care Provider [phone] Reason for Visit * Reason Comments Image [...] st Contact Info) Description 07/13/2024 1:40 PM MASTIC WORKER Office Visit [facility] Medical Group Multispecialty Care - [facility] 3 [facility], [address] [place] [address] Kirill Montelongo MD [address] [place] [address] documented as of this encounter Procedures Procedure [...] as of this encounter Care Teams Application Packager Relationship Specialty Start Date End Date Elpidio Serrato MD [address] [place] [address] PCP - General INTERNAL MEDICINE 06/19/18 documented as of this encounter
--- OUTSIDE RECORDS SUMMARY | 2024-05-20 07:46 | XMS_ITS | Encounter Summary ---
Author Organization [facility] Address [address] [place] [address]. [place], [place] [address] [place] [address] Care Team Providers Care Collision Mechanic Name Role Phone Elpidio Serrato MD Primary Care Provider [phone] Encounter Details Date Type Department Care Team [...] st Contact Info) Description 07/13/2024 1:40 PM CLASS C TRUCK DRIVER Office Visit [facility] Medical Group Multispecialty Care - [address], [address] [place] [address] Kirill Montelongo MD 3 [place] [address] documented as of this encounter Visit Diagnoses Not on filedocumented in this encounter Additional Health Concerns Assessment Noted Time PHQ-9 Depression Total Score: 0 06/12/19 22 9:09 AM CLASS C TRUCK DRIVER documented as of this encounter Care Teams Collision Mechanic Relationship Specialty Start Date End Date Elpidio Serrato MD [address] [place] [address] PCP - General INTERNAL MEDICINE 06/19/18 documented as of this encounter
--- OUTSIDE RECORDS SUMMARY | 2024-05-20 07:46 | XMS_ITS | Encounter Summary ---
Author Organization [facility] Address [address] [place] [address]. [place], [place] [address] [place] [address] Care Team Providers Care Pbx Mechanic Name Role Phone Elpidio Serrato MD Primary Care Provider [phone] Encounter Details Date Type Department Care Team [...] st Contact Info) Description 07/13/2024 1:40 PM CIRCULATION ANALYST Office Visit [facility] Medical Group Multispecialty Care - [address], [address] [place] [address] Kirill Montelongo MD 3 [place] [address] documented as of this encounter Visit Diagnoses Not on filedocumented in this encounter Additional Health Concerns Assessment Noted Time PHQ-9 Depression Total Score: 0 08/14/19 24 7:35 AM CDT documented as of this encounter Care Teams Pbx Mechanic Relationship Specialty Start Date End Date Elpidio Serrato MD [address] [place] [address] PCP - General INTERNAL MEDICINE 06/19/18 documented as of this encounter
--- OUTSIDE RECORDS SUMMARY | 2024-05-20 07:46 | XMS_ITS | Encounter Summary ---
Author Organization [facility] Address [address] [place] [address]. [place], [place] [address] [place] [address] Care Team Providers Care Cat Breeder Name Role Phone Elpidio Serrato MD Primary Care Provider [phone] Reason for Visit * Reason Onset Date Comments Wound 02/28/2024 Encounter Details Date Type Department Care Team (Late st Contact Info) Description 02/28/2024 Telephone [facility] Medical Group Family & Internal Medicine [place] [address] [place] [address] Elpidio Serrato MD [address] [place] [address] Wound Social History Tobacco Use Types [...] st Contact Info) Description 07/13/2024 1:40 PM VIDEO GAMES STORYWRITER Office Visit [facility] Medical Group Multispecialty Care - [facility] 3 [facility], [address] [place] [address] Kirill Montelongo MD 3 [place] [address] documented as of this encounter Visit Diagnoses Diagnosis Cellulitis, unspecified cellulitis site- Primary documented in this encounter Additional Health Concerns Assessment Noted Time PHQ-9 Depression Total Score: 0 08/14/19 24 7:35 AM CDT documented as of this encounter Care Teams Cat Breeder Relationship Specialty Start Date End Date Elpidio Serrato MD [address] [place] [address] PCP - General INTERNAL MEDICINE 06/19/18 documented as of this encounter
--- OUTSIDE RECORDS SUMMARY | 2024-05-20 07:46 | XMS_ITS | Encounter Summary ---
Author Organization [facility] Address [address] [place] [address]. [place], [place] [address] [place] [address] Care Team Providers Care Planning Analyst Name Role Phone Elpidio Serrato MD Primary Care Provider [phone] Encounter Details Date Type Department Care Team (Latest Contact Info) Description 02/06/2024 Scan HEALTH INFO SRVCS Scanned, Doc Med [...] st Contact Info) Description 07/13/2024 1:40 PM LEAD AUDITOR Office Visit [facility] Medical Group Multispecialty Care - [address], [address] [place] [address] Kirill Montelongo MD 3 [place] [address] documented as of this encounter Visit Diagnoses Not on filedocumented in this encounter Additional Health Concerns Assessment Noted Time PHQ-9 Depression Total Score: 0 08/14/19 24 7:35 AM CDT documented as of this encounter Care Teams Planning Analyst Relationship Specialty Start Date End Date Elpidio Serrato MD [address] [place] [address] PCP - General INTERNAL MEDICINE 06/19/18 documented as of this encounter
--- OUTSIDE RECORDS SUMMARY | 2024-05-20 07:46 | XMS_ITS | Encounter Summary ---
Author Organization [facility] Address [address] [place] [address]. [place], [place] [address] [place] [address] Care Team Providers Care Music Therapy Teacher Name Role Phone Elpidio Serrato MD Primary Care Provider [phone] Encounter Details Date Type Department Care Team [...] st Contact Info) Description 07/13/2024 1:40 PM PLATE PRINTER Office Visit [facility] Medical Group Multispecialty Care - [address], [address] [place] [address] Kirill Montelongo MD 3 [place] [address] documented as of this encounter Visit Diagnoses Not on filedocumented in this encounter Additional Health Concerns Assessment Noted Time PHQ-9 Depression Total Score: 0 08/14/19 24 7:35 AM CDT documented as of this encounter Care Teams Music Therapy Teacher Relationship Specialty Start Date End Date Elpidio Serrato MD [address] [place] [address] PCP - General INTERNAL MEDICINE 06/19/18 documented as of this encounter
--- OUTSIDE RECORDS SUMMARY | 2024-05-20 07:46 | XMS_ITS | Encounter Summary ---
Author Organization [facility] Address [address] [place] [address]. [place], [place] [address] [place] [address] Care Team Providers Care Diamond Grader Name Role Phone Elpidio Serrato MD Primary Care Provider [phone] Reason for Referral * Imaging (Routine) - New Request Specialty Diagnoses / Procedures Referred By Constantino alvarado Referred To Contact RADIOLOGY Diagnoses ROSE (dyspnea on exertion) Procedures USE ECHOCARDIOGRAM W CON Leigh Ann Kerns MD [address] [facility] [address] [place] [address] Phone: tel: fax: Referral ID Status Reason Start Date Expiration Date V isits Requested Visits Authorized [id number] New Request 10/04/2023 10/03/2024 1 1 Reason for Visit * Reason Comments Breathing Problem Consult * Consultation (Routine) - Authorized Specialty Diagnoses / Procedures Referred By Contqi t Referred To Contact CARDIOLOGY / Cardiology Diagnoses Dyspnea on exertion Procedures OFFICE/OUTPATIENT NEW LOW MDM 30-44 MINUTES OFFICE/OUTPT VISIT,NEW,LEVL IV OFFICE/OUTPT VISIT,NEW,LEVL V OFFICE/OUTPT VISIT,EST,LEVL III OFFICE/OUTPT VISIT,EST,LEVL IV OFFICE/OUTPT VISIT,EST,LEVL V Elpidio Serrato MD [address] [place] [address] Phone: tel: fax: Leigh Ann Kerns MD Three [facility] [address] [place] [address] Phone: tel: fax: Referral ID Status Reason Start Date Expiration Date Visits Requested Visits Authorized [id number] Authorized Specialty Services 08/14/2023 09/12/2024 100 100 Encounter Details Date Type Department Care Team (Latest Contact Info) Description 10/04/2023 1:30 PM CDT Office Visit [facility] [address] Leigh Ann Kerns MD [address] [facility] [address] [place] [address] Breathing Problem (Consult ) Social History [...] from the original note were not included. [place], [place] [address] Cardiology Consult PCP: ELPIDIO SERRATO MD Cardiac [...] Date Cataract Closed tibia fracture Diabetes mellitus ([facility]) Disease of thyroid gland [...] 02/06/21 Doc [facility] Abstract vitamin D2, ergocalciferol, 26367 UNITS capsule Take 1 capsule (1.25 mg [...] panel, which she will have with her cutter wet machine. In regards to her high blood pressure, [...] Portions of this note were dictated using Mobile Patrol speech recognition software. Occasional wrong wordor sound-alike substitutions may have occurred due to the inherent limitations of voice recognition software. Please read the chart carefully and recognize, using context, where the substitutions may have occurred. documented in this encounter Plan of Treatment Upcoming Encounters Date Type Department Care Team (Late st Contact Info) Description 07/13/2024 1:40 PM GUNNERY/ORDNANCE OFFICER Office Visit [facility] Medical [facility] Multispecialty Care - [facility] [address] [facility], [address] [place] [address] Kirill Montelongo MD 3 [place] [address] Scheduled Orders Name Type Priority Associated Diagnoses [...] documented as of this encounter Care Teams Diamond Grader Relationship Specialty Start Date End Date Elpidio Serrato MD [address] [place] [address] PCP - General INTERNAL MEDICINE 06/19/18 documented as of this encounter
--- OUTSIDE RECORDS SUMMARY | 2024-05-20 07:46 | XMS_ITS | Encounter Summary ---
Author Organization [facility] Address [address] [place] [address]. [place], [place] [address] [place] [address] Care Team Providers Care Outside Deliverer Name Role Phone Elpidio Serrato MD Primary Care Provider [phone] Reason for Visit * Reason Comments Lab [...] st Contact Info) Description 07/13/2024 1:40 PM LIQUID LOADER Office Visit [facility] Medical Group Multispecialty Care - [facility] [address] [facility], [address] [place] [address] Kirill Montelongo MD [address] [place] [address] documented as of this encounter Procedures Procedure [...] documented as of this encounter Care Teams Outside Deliverer Relationship Specialty Start Date End Date Elpidio Serrato MD [address] [place] [address] PCP - General INTERNAL MEDICINE 06/19/18 documented as of this encounter
--- OUTSIDE RECORDS SUMMARY | 2024-05-20 07:46 | XMS_ITS | Encounter Summary ---
Author Organization [facility] Address [address] [place] [address]. [place], [place] [address] [place] [address] Care Team Providers Care E Commerce Merchandising Coordinator Name Role Phone Elpidio Serrato MD Primary Care Provider [phone] Reason for Visit * Reason Comments Lab [...] st Contact Info) Description 07/13/2024 1:40 PM BOLOGNA MAKER Office Visit [facility] Medical Group Multispecialty Care - [facility] [address] [facility], [address] [place] [address] Kirill Montelongo MD [address] [place] [address] documented as of this encounter Procedures Procedure Name Priority Date/Time Associated Diagnosis Comments OUTSIDE LAB (SCAN ORDER) 10/29/2023 OUTSIDE LAB (SCAN ORDER) 10/29/2023 OUTSIDE LAB (SCAN ORDER) 10/29/2023 documented in this encounter Results * OUTSIDE LAB (SCAN ORDER) (10/29/2023) 10/29/2023 [facility] Scanned SCANNING Final Resu lt * OUTSIDE LAB (SCAN ORDER) (10/29/2023) 10/29/2023 [facility] Scanned SCANNING Final Resu lt * OUTSIDE LAB (SCAN ORDER) (10/29/2023) 10/29/2023 [facility] Scanned SCANNING Final Resu lt documented in this encounter Visit Diagnoses Not on filedocumented in this encounter Additional Health Concerns Assessment Noted Time PHQ-9 Depression Total Score: 0 08/14/19 24 7:35 AM CDT documented as of this encounter Care Teams E Commerce Merchandising Coordinator Relationship Specialty Start Date End Date Elpidio Serrato MD [address] [place] [address] PCP - General INTERNAL MEDICINE 06/19/18 documented as of this encounter
--- OUTSIDE RECORDS SUMMARY | 2024-05-20 07:46 | XMS_ITS | Encounter Summary ---
Author Organization [facility] Address [address] [place] [address]. [place], [place] [address] [place] [address] Care Team Providers Care Phy Therapist Name Role Phone Elpidio Serrato MD Primary Care Provider [phone] Reason for Visit * Reason Comments Writer Editor Report (SCAN)* Encounter Details Date Type Department Care Team (Late Contact Info) Description 11/25/2023 Scan HEALTH INFO [facility] Scanned, Doc Med Group Writer Editor Report (SCAN)* Social History Tobacco Use Types [...] (Late Contact Info) Description 07/13/2024 1:40 PM VENEER LATHE OPERATOR Office Visit [facility] Multispecialty Care - [address], [address] [place] [address] Kirill Montelongo MD 3 [place] [address] documented as of this encounter Procedures Procedure Name Priority Date/Time Associated Diagnosis Comments CONFIGURATION TECHNICIAN 11/25/2023 documented in this encounter Results * CONFIGURATION TECHNICIAN (11/25/2023) Anatomical Region Laterality Modality Other 11/25/2023 us Doc Med Group Scanned SCANNING Final Resu lt documented in this encounter Visit Diagnoses Not on filedocumented in this encounter Additional Health Concerns Assessment Noted Time PHQ-9 Depression Total Score: 0 08/14/19 24 7:35 AM CDT documented as of this encounter Care Teams Phy Therapist Relationship Specialty Start Date End Date Elpidio Serrato MD [address] [place] [address] [phone] PCP - General INTERNAL MEDICINE 06/19/18 documented as of this encounter
--- OUTSIDE RECORDS SUMMARY | 2024-05-20 07:46 | XMS_ITS | Encounter Summary ---
Author Organization [facility] Address [address] [place] [address]. [place], [place] [address] [place] [address] Care Team Providers Care Spiral Binder Name Role Phone Elpidio Serrato MD Primary Care Provider [phone] Encounter Details Date Type Department Care Team (Late st Contact Info) Description 02/28/2022 9:00 AM CDT Flu/Imm Clinic [facility] Medical Group Family & Internal Medicine [place] [address] [place] [address] Elpidio Serrato MD [address] [place] [address] Social History Tobacco Use Types Packs/Day [...] st Contact Info) Description 07/13/2024 1:40 PM HUMAN RESOURCE OFFICER Office Visit [facility] Medical Group Multispecialty Care - [facility] 3 [facility], [address] [place] [address] Kirill Montelongo MD 3 [place] [address] documented as of this encounter Visit Diagnoses Diagnosis Need for prophylactic vaccination against viral disease- Primary Need for prophylactic vaccination and inoculation against other viral diseases documented in this encounter Additional Health Concerns Assessment Noted Time PHQ-9 Depression Total Score: 0 06/12/19 22 9:09 AM HUMAN RESOURCE OFFICER documented as of this encounter Care Teams Spiral Binder Relationship Specialty Start Date End Date Elpidio Serrato MD [address] [place] [address] PCP - General INTERNAL MEDICINE 06/19/18 documented as of this encounter
--- OUTSIDE RECORDS SUMMARY | 2024-05-20 07:46 | XMS_ITS | Encounter Summary ---
Author Organization [facility] Address [address] [place] [address]. [place], [place] [address] [place] [address] Care Team Providers Care Ground Systems Engineer Name Role Phone Elpidio Serrato MD Primary Care Provider [phone] Reason for Visit * Reason Comments Lab [...] st Contact Info) Description 07/13/2024 1:40 PM LOADER ENGINEER Office Visit [facility] Medical Group Multispecialty Care - [facility] 3 [facility], [address] [place] [address] Kirill Montelongo MD [address] [place] [address] documented as of this encounter Procedures Procedure Name Priority Date/Time Associated Diagnosis Comments OUTSIDE LAB (SCAN ORDER) Routine 10/29/2023 documented in this encounter Results * OUTSIDE LAB (10/29/2023) HGB A1C 5.9 % [facility] ONBASE 10/29/2023 us Doc Med Group Scanned SCANNING Final Resu lt [facility] ONBASE documented in this encounter Visit Diagnoses Not on filedocumented in this encounter Additional Health Concerns Assessment Noted Time PHQ-9 Depression Total Score: 0 08/14/19 24 7:35 AM CDT documented as of this encounter Care Teams Ground Systems Engineer Relationship Specialty Start Date End Date Elpidio Serrato MD [address] [place] [address] PCP - General INTERNAL MEDICINE 06/19/18 documented as of this encounter
--- OUTSIDE RECORDS SUMMARY | 2024-05-20 07:46 | XMS_ITS | Encounter Summary ---
Author Organization [facility] Address [address] [place] [address]. [place], [place] [address] [place] [address] Care Team Providers Care Lap Grinder Name Role Phone Elpidio Serrato MD Primary Care Provider [phone] Encounter Details Date Type Department Care Team [...] st Contact Info) Description 07/13/2024 1:40 PM REAL ESTATE RECRUITER Office Visit [facility] Medical Group Multispecialty Care - [facility] 3 [facility], [address] [place] [address] Kirill Motnelongo MD 3 [place] [address] documented as of this encounter Visit Diagnoses Not on filedocumented in this encounter Additional Health Concerns Assessment Noted Time PHQ-9 Depression Total Score: 0 06/12/19 22 9:09 AM REAL ESTATE RECRUITER documented as of this encounter Care Teams Lap Grinder Relationship Specialty Start Date End Date Elpidio Serrato MD [address] [place] [address] [phone] PCP - General INTERNAL MEDICINE 06/19/18 documented as of this encounter
--- OUTSIDE RECORDS SUMMARY | 2024-05-20 07:46 | XMS_ITS | Encounter Summary ---
Author Organization [facility] Address [address] [place] [address]. [place], [place] [address] [place] [address] Care Team Providers Care Data Center Solutions Architect Name Role Phone Elpidio Serrato MD Primary Care Provider [phone] Reason for Referral * Consultation (Routine) - Authorized Specialty Diagnoses / Procedures Referred By Contac t Referred To Contact CARDIOLOGY / Cardiology Diagnoses Dyspnea on exertion Procedures OFFICE/OUTPATIENT NEW LOW MDM 30-44 MINUTES OFFICE/OUTPT VISIT,NEW,LEVL IV OFFICE/OUTPT VISIT,NEW,LEVL V OFFICE/OUTPT VISIT,EST,LEVL III OFFICE/OUTPT VISIT,EST,LEVL IV OFFICE/OUTPT VISIT,EST,LEVL V Elpidio Serrato MD [address] [place] [address] Phone: tel: fax: Leigh Ann Kerns MD Three [facility] [address] [place] [address] Phone: tel: fax: Referral ID Status Reason Start Date Expiration Date Visits Requested Visits Authorized [id number] Authorized Specialty Services 08/14/2023 09/12/2024 100 100 * Imaging (Routine) - Pending Review Specialty Diagnoses / Procedures Referred By Contac t Referred To Contact RADIOLOGY Diagnoses Encounter for screening mammogram for malignant neoplasm of breast Procedures MG SCREENING W CARISSA Elpidio Payne MD [address] [place] [address] Phone: tel: fax: Referral ID Status Reason Start Date Expiration Date V isits Requested Visits Authorized [id number] Pending Review 08/14/2023 10/13/2024 1 1 Reason for Visit * Reason Comments Diabetes Last A1c 5.8 () Hypertension Hyperlipidemia Encounter Details Date Type Department Care Team (Latest Contact Info) Description 08/14/2023 7:20 AM CDT Office Visit [facility] Medical Group Family & Internal Medicine - [address] [address] Elpidio Serrato MD [address] [place] [address] Diabetes (Last A1c 5.8 (04/29/23)); Hypertension; Hyperlipidemia [...] She does follow with endocrinology [facility] at [facility]. Her hemoglobin A1c is 5.6% on her [...] symptoms of chronic kidney disease. Osteoporosis: Her airline attendant is ordering Reclast but has not yet [...] mouth nightly at bedtime. vitamin D2, ergocalciferol, 12844 UNITS capsule Take 1 capsule (1.25 mg total) by mouth weekly. No current facility-administered medications on file prior to visit. Allergies: Allergies Allergen Reactions Pseudoephedrine Tachycardia Valacyclovir Other (see comment) put me in renal failure Medical History: Past Medical History: Diagnosis Date Cataract Closed tibia fracture Diabetes mellitus ([facility]) Disease of thyroid gland Glaucoma Hypertension Surgical [...] use of insulin, macular edema presence unspecified ([facility]) CANCELED: HEMOGLOBIN, GLYCOSYLATED CANCELED: COLLECT.CAPILLARY (FNGR,HEEL,EAR) 2. Benign essential hypertension Chronic 3. Mixed hyperlipidemia 4. Dyspnea on exertion Ambulatory referral to Cardiology, Adult ([facility]) 5. Acquired hypothyroidism 6. Age-related osteoporosis without current pathological fracture 7. Chronic kidney disease (CKD) stage G3b/A1, moderately decreased glomerular filtration rate (GFR)between 30-44 mL/min/1.73 square meter and albuminuria creatinine ratio less than 30* ([facility]) 8. Encounter for screening mammogram for malignant neoplasm of breast MG SCREENING W CARISSA ROBERT DIGI 9. Morbid (severe) obesity due to excess calories ([facility]) 10. Body mass index (BMI) 40.0-44.9, adult ([facility]) Recommendations and Plan: 1. 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 2. Benign essential hypertension Well controlled, continue with present management. 3. Mixed hyperlipidemia Well controlled, continue with present management. 4. Dyspnea on exertion Refer to cardiology for further workup. - Ambulatory referral to Cardiology, Adult ([facility]) 5. Acquired hypothyroidism Doing well, continue with same levothyroxine dosage. 6. Age-related osteoporosis without current pathological fracture Management as per endocrinology. 7. Chronic kidney disease (CKD) stage G3b/A1, moderately decreased glomerular filtration rate (GFR)between 30-44 mL/min/1.73 square meter and albuminuria creatinine ratio less than 30* ([facility]) Stable, continue to monitor. 8. Encounter for screening mammogram for malignant neoplasm of breast - MG SCREENING W CARISSA ROBERT DIGI; Future 9. Morbid (severe) obesity due to excess calories ([facility]) Encouraged diet and exercise Rx. 10. Body mass index (BMI) 40.0-44.9, adult ([facility]) Follow up in 6 months. Orders Placed This Encounter Ambulatory referral to Cardiology, Adult ([facility]) MG SCREENING W CARISSA ROBERT DIGI olmesartan (BENICAR) 40 MG tablet PCP: ELPIDIO SERRATO MD 08/14/2023 documented in this encounter Plan of Treatment Upcoming Encounters Date Type Department Care Team (Late st Contact Info) Description 07/13/2024 1:40 PM ADOPTION SPECIALIST Office Visit [facility] Medical Group Multispecialty Care - [facility] 3 [facility], [address] [place] [address] Kirill Montelongo MD [address] [place] [address] Scheduled Orders Name Type Priority Associated Diagnoses Orde r Schedule MG SCREENING W CARISSA ROBERT DIGI MAMMO Routine Encounter for screening mammogram for malignant neoplasm of breast Expected: 08/14/2023, Expires: 10/13/2024 Scheduled Referrals Name Type Priority Associated Diagnoses Orde r Schedule Ambulatory referral to Cardiology, Adult ([facility]) Referral Routine Dyspnea on exertion Ordered: 08/14/2023 documented as of this encounter Visit Diagnoses Diagnosis 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, without long-term current use of insulin, macular edema presence unspecified ([facility])- Primary Benign essential hypertension Essential hypertension, benign Mixed hyperlipidemia Dyspnea on exertion Other dyspnea and respiratory abnormality Acquired hypothyroidism Unspecified hypothyroidism Age-related osteoporosis without current pathological fracture Senile osteoporosis Chronic kidney disease (CKD) stage G3b/A1, moderately decreased glomerular filtration rate (GFR) between 30-44 mL/min/1.73 square meter and albuminuria creatinine ratio less than 30* ([facility]) Encounter for screening mammogram for malignant neoplasm of breast Other screening mammogram Morbid (severe) obesity due to excess calories ([facility]) Body mass index (BMI) 40.0-44.9, adult ([facility]) documented in this encounter Additional Health Concerns Assessment Noted Time PHQ-9 Depression Total Score: 0 08/14/19 24 7:35 AM CDT documented as of this encounter Care Teams Data Center Solutions Architect Relationship Specialty Start Date End Date Elpidio Serrato MD [address] [place] [address] PCP - General INTERNAL MEDICINE 06/19/18 documented as of this encounter
--- OUTSIDE RECORDS SUMMARY | 2024-05-20 07:46 | XMS_ITS | Encounter Summary ---
Author Organization [facility] Address [address] [place] [address]. [place], [place] [address] [place] [address] Care Team Providers Care Human Machine Interface Engineer Name Role Phone Elpidio Serrato MD Primary Care Provider [phone] Reason for Visit * Reason Comments Cellulitis Follow up on celluli tis R foot. Encounter Details Date Type Department Care Team (Late st Contact Info) Description 03/05/2024 3:00 PM CDT Office Visit [facility] Medical Group Family & Internal Medicine [address] [phone] Elpidio Serrato MD [address] [place] [address] Cellulitis (Follow up on cellulitis R [...] influenza vaccine? No 4. Do you have Guillain-Lawrence Syndrome? No Flu vaccine administered in Right [...] tablet (8.6 mg total). vitamin D2, ergocalciferol, [address]509 UNITS capsule Take 1 capsule (1.25 mg total) by mouth weekly. No current facility-administered medications on file prior to visit. Allergies: Allergies Allergen Reactions Pseudoephedrine Tachycardia Valacyclovir Other (see comment) put me in renal failure Medical History: Past Medical History: Diagnosis Date Cataract Closed tibia fracture Diabetes mellitus ([facility]) Disease of thyroid gland Glaucoma Hypertension Surgical History: Past Surgical History: Procedure Laterality Date APPENDECTOMY CABG, ARTERIAL, THREE 01/20/2024 Performed at [facility] by Dr. Treviño CARPAL TUNNEL RELEASE [...] ML 3. Need for immunization against influenza [39605] Flu Vaccine, Split Virus, High Dose 65+ Years Recommendations and Plan: 1. Cellulitis and abscess of toe of right foot (Primary) Finish antibiotics as prescribed Call if increased redness or pain. 2. Need for COVID-19 vaccine PFIZER COVID-19 (12+) MRNA, LNP-S, PF, UMM-SUCROSE 30 MCG/0.3 ML 3. Need for immunization against influenza - [83601] Flu Vaccine, Split Virus, High Dose 65+ Years Orders Placed This Encounter [26440] Flu Vaccine, Split Virus, High Dose 65+ [...] st Contact Info) Description 07/13/2024 1:40 PM MODELER Office Visit [facility] Medical Group Multispecialty Care - [facility] 3 [facility], [address] [place] [address] Kirill Montelongo MD 3 [place] [address] documented as of this encounter Visit Diagnoses Diagnosis Cellulitis and abscess of toe of right foot- Primary Need for COVID-19 vaccine Need for immunization against influenza Need for prophylactic vaccination and inoculation against influenza documented in this encounter Additional Health Concerns Assessment Noted Time PHQ-9 Depression Total Score: 0 08/14/19 24 7:35 AM CDT documented as of this encounter Care Teams Human Machine Interface Engineer Relationship Specialty Start Date End Date Elpidio Serrato MD [address] [place] [address] PCP - General INTERNAL MEDICINE 06/19/18 documented as of this encounter
--- OUTSIDE RECORDS SUMMARY | 2024-05-20 07:46 | XMS_ITS | Encounter Summary ---
Author Organization [facility] Address [address] [place] [address]. [place], [place] [address] [place] [address] Care Team Providers Care Network Services Project Manager Name Role Phone Elpidio Serrato MD Primary Care Provider [phone] Encounter Details Date Type Department Care Team [...] st Contact Info) Description 07/13/2024 1:40 PM PORTRAIT PHOTOGRAPHER Office Visit [facility] Multispecialty Care - [address], [address] [place] [address] Kirill Montelongo MD 3 [place] [address] documented as of this encounter Visit Diagnoses Not on filedocumented in this encounter Additional Health Concerns Assessment Noted Time PHQ-9 Depression Total Score: 0 08/14/19 24 7:35 AM CDT documented as of this encounter Care Teams Network Services Project Manager Relationship Specialty Start Date End Date Elpidio Serrato MD [address] [place] [address] PCP - General INTERNAL MEDICINE 06/19/18 documented as of this encounter
--- OUTSIDE RECORDS SUMMARY | 2024-05-20 07:46 | XMS_ITS | Encounter Summary ---
Author Organization [facility] Address [address] [place] [address]. [place], [place] [address] [place] [address] Care Team Providers Care C T Tech Name Role Phone Elpidio Serrato MD Primary Care Provider [phone] Reason for Visit * Reason Comments Allied Health Visit Flu shot Encounter Details Date Type Department Care Team (Latest Contact Info) Description 02/05/2023 1:30 PM CDT Allied Health/Nurse Visit [facility] Family & Internal Medicine [address] [place] [address] Elpidio Serrato MD [address] [place] [address] Allied Health Visit (Flu shot) Social [...] st Contact Info) Description 07/13/2024 1:40 PM RECREATIONAL THERAPIST Office Visit [facility] Multispecialty Care - [facility] [address] [facility], [address] [place] [address] Kirill Montelongo MD 3 [place] [address] documented as of this encounter Visit Diagnoses Diagnosis Need for immunization against influenza- Primary Need for prophylactic vaccination and inoculation against influenza documented in this encounter Additional Health Concerns Assessment Noted Time PHQ-9 Depression Total Score: 0 06/12/19 9:09 AM RECREATIONAL THERAPIST documented as of this encounter Care Teams C T Tech Relationship Specialty Start Date End Date Elpidio Serrato MD [address] [place] [address] PCP - General INTERNAL MEDICINE 06/19/18 documented as of this encounter
--- OUTSIDE RECORDS SUMMARY | 2024-05-20 07:47 | XMS_ITS | Encounter Summary ---
Author Organization [facility] Address [address] [place] [address]. [place], [place] [address] [place] [address] Care Team Providers Care Licensed Prosthetist/Orthotist Name Role Phone Elpidio Serrato MD Primary Care Provider [phone] Reason for Visit * Reason Comments Lab [...] st Contact Info) Description 07/13/2024 1:40 PM MARINE DIESEL TECHNICIAN Office Visit [facility] Group Multispecialty Care - [address], [address] [place] [address] Kirill Montelongo MD [address] [place] [address] documented as of this encounter Procedures Procedure Name Priority Date/Time Associated Diagnosis Comments IMAGE GENERIC Routine 06/12/2018 documented in this encounter Results * IMAGE STUDY (06/12/2018) Anatomical Region Laterality Modality Other us Documents Scanned SCANNING Final Result documented in this encounter Visit Diagnoses Not on filedocumented in this encounter Care Teams Licensed Prosthetist/Orthotist Relationship Specialty Start Date End Date Elpidio Serrato MD [address] [place] [address] PCP - General INTERNAL MEDICINE 06/19/18 documented as of this encounter
--- OUTSIDE RECORDS SUMMARY | 2024-05-20 07:47 | XMS_ITS | Encounter Summary ---
Author Organization [facility] Address [address] [place] [address]. [place], [place] [address] [place] [address] Care Team Providers Care Sales Technician Name Role Phone Elpidio Serrato MD Primary Care Provider [phone] Reason for Visit * Reason Comments Lab [...] st Contact Info) Description 07/13/2024 1:40 PM FREIGHT CLAIM INVESTIGATOR Office Visit [facility] Group Multispecialty Care - [address], [address] [place] [address] Kirill Montelongo MD [address] [place] [address] documented as of this encounter Procedures Procedure Name Priority Date/Time Associated Diagnosis Comments OUTSIDE LAB (SCAN ORDER) Routine 06/16/2018 documented in this encounter Results * OUTSIDE LAB (06/16/2018) 06/16/2018 us Documents Scanned SCANNING Edited Result - Final documented in this encounter Visit Diagnoses Not on filedocumented in this encounter Care Teams Sales Technician Relationship Specialty Start Date End Date Elpidio Serrato MD [address] [place] [address] PCP - General INTERNAL MEDICINE 06/19/18 documented as of this encounter
--- OUTSIDE RECORDS SUMMARY | 2024-05-20 07:47 | XMS_ITS | Encounter Summary ---
Author Organization [facility] Address [address] [place] [address]. [place], [place] [address] [address] Care Team Providers Care Breast Puller Name Role Phone Elpidio Serrato MD Primary Care Provider [phone] Reason for Visit * Reason Onset Date Comments COVID-19 04/14/2020 Encounter Details Date Type Department Care Team (Late st Contact Info) Description 04/14/2020 Telephone [facility] Group Family & Internal Medicine [address] [place] [address] Elpidio Serrato MD [facility] [facility] [place] [address] COVID-19 Social History Tobacco Use [...] will go to ER , patient v/u NING SUPPORT SERVICES DIRECTOR * Elpidio Serrato MD - 04/14/2020 2:46 PM CST It sounds like she has gastroenteritis and not COVID if she is not having any respiratory symptoms.If she still would like a COVID test we can arrange for one to be done through [facility]. NING SUPPORT SERVICES DIRECTOR * Ruth Dewey MA - 04/14/2020 10:35 [...] sick? NO Comorbidities: Obesity, HTN, DM, CB# [phone] Allergies: Pseudoephedrine and Valacyclovir Pharmacy: [facility] NING SUPPORT SERVICES DIRECTOR * Doris Alvarez - 04/14/2020 9:32 AM CST Patient needing triaged, sinus issues, not regaining strength NING SUPPORT SERVICES DIRECTOR documented in this encounter Plan of Treatment Upcoming Encounters Date Type Department Care Team (Late st Contact Info) Description 07/13/2024 1:40 PM LEARNING SUPPORT SERVICES DIRECTOR Office Visit [facility] Medical Group Multispecialty Care - [facility] [address] [facility], [address] [place] [phone] Kirill Montelongo MD 3 [place] [address] documented as of this encounter Visit Diagnoses Not on filedocumented in this encounter Care Teams Breast Puller Relationship Specialty Start Date End Date Elpidio Serrato MD [address] [place] [address] PCP - General INTERNAL MEDICINE 06/19/18 documented as of this encounter
--- OUTSIDE RECORDS SUMMARY | 2024-05-20 07:47 | XMS_ITS | Encounter Summary ---
Author Organization [facility] Address [address] [place] [address]. [place], [place] [address] [place] [address] Care Team Providers Care Brickmason Apprentice Name Role Phone Elpidio Serrato MD Primary Care Provider [phone] Reason for Visit * Reason Comments Sore Throat Started Saturday Cough occasionally product lisa, Started Saturday Headache Started Saturday Fever 101 degree F, Last n ight Encounter Details Date Type Department Care Team (Late st Contact Info) Description 01/07/2019 9:40 AM CDT Office Visit [facility] Medical Group Family & Internal Medicine [address] [address] Elpidio Serrato MD [address] [place] [address] Sore Throat (Started Saturday); Cough (occasionally productive, [...] nightly at bedtime. ??? vitamin D2, ergocalciferol, [address]288 UNITS capsule Take 1 capsule by mouth [...] file Gets together: Not on file Attends evangelical service: Not on file Active member of [...] st Contact Info) Description 07/13/2024 1:40 PM MIRROR SPECIALIST Office Visit [facility] Group Multispecialty Care - [address], [address] [place] [address] Kirill Montelongo MD 3 [place] [address] documented as of this encounter Results * [...] organism documented in this encounter Care Teams Brickmason Apprentice Relationship Specialty Start Date End Date Elpidio Serrato MD [address] [place] [address] PCP - General INTERNAL MEDICINE 06/19/18 documented as of this encounter
--- OUTSIDE RECORDS SUMMARY | 2024-05-20 07:47 | XMS_ITS | Encounter Summary ---
Author Organization [facility] Address [address] [place] [address]. [place], [place] [address] [place] [address] Care Team Providers Care Schedule Planning Manager Name Role Phone Elpidio Serrato MD Primary Care Provider [phone] Reason for Visit * Reason Onset Date Comments Follow Up Call 02/12/2020 Encounter Details Date Type Department Care Team (Late st Contact Info) Description 02/12/2020 Telephone [facility] Family & Internal Medicine [address] [place] [address] Elpidio Serrato MD [facility] [place] [address] Follow Up Call Social History [...] st Contact Info) Description 07/13/2024 1:40 PM OTOLARYNGOLOGY SURGEON Office Visit [facility] Multispecialty Care - [facility] [address] [facility], [address] [place] [address] Kirill Montelongo MD 3 [place] [address] documented as of this encounter Visit Diagnoses Not on filedocumented in this encounter Care Teams Schedule Planning Manager Relationship Specialty Start Date End Date Elpidio Serrato MD [address] [place] [address] PCP - General INTERNAL MEDICINE 06/19/18 documented as of this encounter
--- OUTSIDE RECORDS SUMMARY | 2024-05-20 07:47 | XMS_ITS | Encounter Summary ---
Author Organization [facility] Address [address] [place] [address]. [place], [place] [address] [place] [address] Care Team Providers Care Cylinder Tester Name Role Phone Elpidio Serrato MD Primary Care Provider [phone] Encounter Details Date Type Department Care Team (Late st Contact Info) Description 10/19/2019 Abstract Business Office [address] [place] [address] Abstract, Doc [facility] Social History Tobacco Use [...] st Contact Info) Description 07/13/2024 1:40 PM PUBLIC WORKS MANAGER Office Visit [facility] Group Multispecialty Care - [address], [address] [place] [address] Kirill Montelongo MD 3 [place] [address] documented as of this encounter Procedures Procedure Name Priority Date/Time Associated Diagnosis Comments HEMOGLOBIN, GLYCOSYLATED Routine 04/01/2019 documented in this encounter Results * HEMOGLOBIN, GLYCOSYLATED (04/01/2019) HGB A1C 7.7 % 04/01/2019 us Doc [facility] Abstract LABORATORY Final Result documented in this encounter Visit Diagnoses Not on filedocumented in this encounter Care Teams Cylinder Tester Relationship Specialty Start Date End Date Elpidio Serrato MD [address] [place] [address] PCP - General INTERNAL MEDICINE 06/19/18 documented as of this encounter
--- OUTSIDE RECORDS SUMMARY | 2024-05-20 07:47 | XMS_ITS | Encounter Summary ---
Author Organization [facility] Address [address] [place] [address]. [place], [place] [address] [place] [address] Care Team Providers Care Conflict Resolution Professional Name Role Phone Unavailable Primary Care Provider Unavailabl e Encounter Details Date Type Department Care Team (Latest Contact Info) Description 03/07/2018 Abstract [facility] , Austin Patel MD [...] st Contact Info) Description 07/13/2024 1:40 PM DYE TUB OPERATOR Office Visit [facility] Group Multispecialty Care - [facility] [address] [facility], [address] [place] [address] Kirill Montelongo MD 3 [place] [address] documented as of this encounter Visit Diagnoses Not on filedocumented in this encounter
--- OUTSIDE RECORDS SUMMARY | 2024-05-20 07:47 | XMS_ITS | Encounter Summary ---
Author Organization [facility] Address [address] [place] [address]. [place], [place] [address] [place] [address] Care Team Providers Care Fitness Coach Name Role Phone Elpidio Serrato MD Primary Care Provider [phone] Encounter Details Date Type Department Care Team [...] st Contact Info) Description 07/13/2024 1:40 PM BOOT AND SHOE LABORER Office Visit [facility] Group Multispecialty Care - [address], [address] [place] [address] Kirill Montelongo MD [address] [place] [address] documented as of this encounter Visit Diagnoses Not on filedocumented in this encounter Care Teams Fitness Coach Relationship Specialty Start Date End Date Elpidio Serrato MD [address] [place] [address] [phone] PCP - General INTERNAL MEDICINE 06/19/18 documented as of this encounter
--- OUTSIDE RECORDS SUMMARY | 2024-05-20 07:47 | XMS_ITS | Encounter Summary ---
Author Organization [facility] Address [address] [place] [address]. [place], [place] [address] [place] [address] Care Team Providers Care Cancer Genetic Counselor Name Role Phone Elpidio Serrato MD Primary Care Provider [phone] Encounter Details Date Type Department Care Team [...] st Contact Info) Description 07/13/2024 1:40 PM CARDIOPULMONARY TECHNICIAN AND EEG TECH Office Visit [facility] Group Multispecialty Care - [address], [address] [place] [address] Kirill Montelongo MD 3 [place] [address] documented as of this encounter Visit Diagnoses Not on filedocumented in this encounter Care Teams Cancer Genetic Counselor Relationship Specialty Start Date End Date Elpidio Serrato MD [address] [place] [address] PCP - General INTERNAL MEDICINE 06/19/18 documented as of this encounter
--- OUTSIDE RECORDS SUMMARY | 2024-05-20 07:47 | XMS_ITS | Encounter Summary ---
Author Organization [facility] Address [address] [place] [address]. [place], [place] [address] [place] [address] Care Team Providers Care Public Relations Analyst Name Role Phone Elpidio Serrato MD Primary Care Provider [phone] Reason for Visit * Reason Comments Medicare Wellness Encounter Details Date Type Department Care Team (Late st Contact Info) Description 02/15/2021 9:20 AM CDT Office Visit [facility] Family & Internal Medicine [address] [address] Medicare Wellness Social History Tobacco Use Types [...] COVID-19? No / Unsure 06/12/2021 8:48 AM WIRE WALKER documented as of this encounter Patient Instructions [...] Written by the doctors and editors at [facility] What are advance directives???--??Advance directives are [...] proxy (also called the durable power of disability attorney for health care) - The health [...] process is complete. This topic retrieved from [employer] on: May 20, 2018. Topic 02119 Version 11.0 table 1: Resources that can help you make advance directives ?? Address Phone number Website [facility] [address], [place] Toll-free: ([phone] [facility] [ ] http://assets.aarp.org/external_sites/ caregiving/multimedia/EG_AdvanceDirectives.html Aging with Dignity (Five Wishes form) [address] [place] [address] Toll-free: (865) 5WISHNAOMI [ ] www.agingwithdignity.org CaringInfo ?? Toll-free: www.caringinfo.org [employer] [address] [place] [address] www.[email or web address] EXERCISE As an older adult, regular physical [...] your heart beating faster. From pushing a [employer] operations consultant, to taking a dance class, to biking [...] pain ever and you need to go [facility]. An exam will help your doctor [...] Some of these are massage, acupuncture, career development facilitator, and relaxation. What drugs may be needed? [...] 1 SLUMS #9: Clock 4 SLUMS #10a: [place] 1 SLUMS #10b: Size 1 SLUMS #11: [...] SCORE 1 0 The ASCVD Risk score (Ehsanprema JEFFRIES Jr., et al., 2013) failed to [...] times daily. 3 ??? vitamin D2, ergocalciferol, 12362 UNITS capsule Take 1 capsule by mouth [...] st Contact Info) Description 07/13/2024 1:40 PM WIRE WALKER Office Visit [facility] Group Multispecialty Care - [facility] [address] [facility], [address] [place] [address] Kirill Montelongo MD 3 [place] [address] documented as of this encounter Visit Diagnoses Diagnosis Need for immunization against influenza Need for prophylactic vaccination and inoculation against influenza Routine general medical examination at a health care facility documented in this encounter Additional Health Concerns Assessment Noted Time PHQ-9 Depression Total Score: 1 02/16/20 21 9:46 AM CDT documented as of this encounter Care Teams Public Relations Analyst Relationship Specialty Start Date End Date Elpidio Serrato MD [address] [place] [address] PCP - General INTERNAL MEDICINE 06/19/18 documented as of this encounter
--- OUTSIDE RECORDS SUMMARY | 2024-05-20 07:47 | XMS_ITS | Encounter Summary ---
Author Organization [facility] Address [address] [place] [address]. [place], [place] [address] [place] [address] Care Team Providers Care Arch Support Technician Name Role Phone Elpidio Serrato MD Primary Care Provider [phone] Encounter Details Date Type Department Care Team [...] st Contact Info) Description 07/13/2024 1:40 PM PAINTER Office Visit [facility] Group Multispecialty Care - [address], [address] [place] [address] Kirill Montelongo MD 3 [place] [address] documented as of this encounter Visit Diagnoses Not on filedocumented in this encounter Care Teams Arch Support Technician Relationship Specialty Start Date End Date Elpidio Serrato MD [address] [place] [address] [phone] PCP - General INTERNAL MEDICINE 06/19/18 documented as of this encounter
--- OUTSIDE RECORDS SUMMARY | 2024-05-20 07:47 | XMS_ITS | Encounter Summary ---
Author Organization [facility] Address [address] [place] [address]. [place], [place] [address] [place] [address] Care Team Providers Care Instrumentation Manager Name Role Phone Elpidio Serrato MD Primary Care Provider [phone] Encounter Details Date Type Department Care Team [...] st Contact Info) Description 07/13/2024 1:40 PM SAWING AND ASSEMBLY SUPERVISOR Office Visit [facility] Group Multispecialty Care - [facility] [address] [facility], [address] [place] [address] Kirill Montelongo MD 3 [place] [address] documented as of this encounter Visit Diagnoses Not on filedocumented in this encounter Care Teams Instrumentation Manager Relationship Specialty Start Date End Date Elpidio Serrato MD [address] [place] [address] PCP - General INTERNAL MEDICINE 06/19/18 documented as of this encounter
--- OUTSIDE RECORDS SUMMARY | 2024-05-20 07:47 | XMS_ITS | Encounter Summary ---
Author Organization [facility] Address [address] [place] [address]. [place], [place] [address] [place] [address] Care Team Providers Care Senior Systems Developer Name Role Phone Unavailable Primary Care Provider Unavailabl e Encounter Details Date Type Department Care Team (Late st Contact Info) Description 02/10/2018 Abstract [facility] Medical Group Family & Internal Medicine [facility] [address] [place] [address] Elpidio Serrato MD [address] [place] [address] Social History Tobacco Use Types Packs/Day Years [...] she did not like seeing his physician nurse assistant and she wanted to transfer. Patient [...] For - Manual Activation; Requested for:11Aug2018; [facility]:. [facility]; Due:10Sep2018;Ordered; For:Benign essential hypertension, Hyperlipidemia, Hypothyroidism, [...] For - Manual Activation; Requested for:11Aug2018; [facility]form:[email or web address]; Due:10Sep2018;Ordered; For:Benign essential hypertension, Hyperlipidemia, Hypothyroidism, Type 2 diabetes mellitus; Ordered By:Elpidio Serrato; 4. Creatine Kinase ( CK ) ( CPK ); Status:Hold For - Manual Activation; Requested for:11Aug2018; Perform:[email or web address]; Due:10Sep2018;Ordered; For:Benign essential hypertension, Hyperlipidemia, Hypothyroidism, Type 2 diabetes mellitus; Ordered By:Elpidio Serrato; 5. Free T4 ( Thyroxine ); Status:Hold For - Manual Activation; Requested for:11Aug2018; [facility]; Due:10Sep2018;Ordered; For:Benign essential hypertension, Hyperlipidemia, Hypothyroidism, Type 2 diabetes mellitus; Ordered By:Elpidio Serrato; 6. Hemoglobin A1C ( HA1C ); Status:Hold For - Manual Activation; Requested for:11Aug2018; [facility]; Due:10Sep2018;Ordered; For:Benign essential hypertension, Hyperlipidemia, Hypothyroidism, Type 2 diabetes mellitus; Ordered By:Elpidio Serrato; 7. Lipid Profile; Status:Hold For - Manual Activation; Requested for:11Aug2018; Perform:[facility]; Due:10Sep2018;Ordered; For:Benign essential hypertension, Hyperlipidemia, Hypothyroidism, Type 2 diabetes mellitus; Ordered By:Elpidio Serrato; 8. Thyroid Stim Hormone ( TSH ); Status:Hold For - Manual Activation; Requested for:11Aug2018; Perform:[facility]; Due:10Sep2018;Ordered; For:Benign essential hypertension, Hyperlipidemia, Hypothyroidism, Type 2 diabetes mellitus; Ordered By:Elpidio Serrato; 9. TSH W Reflex Free T4; Status:Hold For - Manual Activation; Requested for:11Aug2018; Perform:. [facility]; Due:10Sep2018;Ordered; For:Benign essential hypertension, Hyperlipidemia, Hypothyroidism, Type 2 diabetes mellitus; Ordered By:Elpidio Serrato; 10. Urinalysis ( UA ) Culture If Ind; Status:Hold For - Manual Activation; Requested for:11Aug2018; Perform:. [facility]; Due:10Sep2018;Ordered; For:Benign essential hypertension, Hyperlipidemia, Hypothyroidism, Type 2 diabetes mellitus; Ordered By:Elpidio Serrato; Source: : Clean Catch 11. Urine Microalb / Creat Ratio; Status:Hold For - Manual Activation; Requested for:11Aug2018; Perform:[facility]; Due:10Sep2018;Ordered; For:Benign essential hypertension, Hyperlipidemia, Hypothyroidism, Type 2 diabetes mellitus; Ordered By:Elpidio Serrato; 12. Vitamin D 25 - Hydroxy; Status:Hold For - Manual Activation; Requested for:11Aug2018; Per[facility]:. [facility]; Due:10Sep2018;Ordered; For:Benign essential hypertension, Hyperlipidemia, [...] not available in house Class : Outside [facility] Type 2 diabetes mellitus 14. Documentation Designer Referral Outpatient Documentation Designer Refer for poorly contolled DM, Obesity Status: Need Information - Financial Authorization Requested for: 10Feb2018 Ordered; For: Type 2 diabetes mellitus; Ordered By: Elpidio Serrato Performed: Due: 24Feb2018 to Provider Name or Group Name: : Judy Reason : Patient Preference Class : Outside [facility] I explained to her that [...] Elpidio Serrato M.D.; Feb 13 2018 6:39AM ASBESTOS ABATEMENT WORKER (Author) documented in this encounter Plan of Treatment Upcoming Encounters Date Type Department Care Team (Late st Contact Info) Description 07/13/2024 1:40 PM ASBESTOS ABATEMENT WORKER Office Visit [facility] Medical Group Multispecialty Care - [facility] [address] [facility], [address] [place] [address] Kirill Montelongo MD 3 [place] [address] documented as of this encounter Visit Diagnoses Not on filedocumented in this encounter
--- OUTSIDE RECORDS SUMMARY | 2024-05-20 07:47 | XMS_ITS | Encounter Summary ---
Author Organization [facility] Address [address] [place] [address]. [place], [place] [address] [place] [address] Care Team Providers Care Insurance Collector Name Role Phone Elpidio Serrato MD Primary Care Provider [phone] Encounter Details Date Type Department Care Team (Late st Contact Info) Description 02/16/2021 Abstract [facility] [address] [place] [address] Abstract, Doc [facility] Social History Tobacco [...] st Contact Info) Description 07/13/2024 1:40 PM SHRIMP PEELER Office Visit [facility] Medical Group Multispecialty Care - [facility] 3 [facility], [address] [place] [address] Kirill Montelongo MD 3 [place] [address] documented as of this encounter Procedures Procedure [...] documented as of this encounter Care Teams Insurance Collector Relationship Specialty Start Date End Date Elpidio Serrato MD [address] [place] [address] PCP - General INTERNAL MEDICINE 06/19/18 documented as of this encounter
--- OUTSIDE RECORDS SUMMARY | 2024-05-20 07:47 | XMS_ITS | Encounter Summary ---
Author Organization [facility] Address [address] [place] [address]. [place], [place] [address] [place] [address] Care Team Providers Care Border Guard Name Role Phone Elpidio Serrato MD Primary Care Provider [phone] Reason for Visit * Reason Comments Immunization/Injection [...] Department Care Team ([facility] [address] Contact Info) Description 07/13/2024 1:40 PM RECOVERY ANALYST Office Visit [facility] Medical Group Multispecialty Care - [address], [address] [place] [address] Kirill Montelongo MD 3 [place] [address] documented as of this encounter Visit Diagnoses Not on filedocumented in this encounter Care Teams Border Guard Relationship Specialty Start Date End Date Elpidio Serrato MD [address] [place] [address] [id number] PCP - General INTERNAL MEDICINE 06/19/18 documented as of this encounter
--- OUTSIDE RECORDS SUMMARY | 2024-05-20 07:47 | XMS_ITS | Encounter Summary ---
Author Organization [facility] Address [address] [place] [address]. [place], [place] [address] [place] [address] Care Team Providers Care Red Hat Engineer Name Role Phone Elpidio Serrato MD Primary Care Provider [phone] Encounter Details Date Type Department Care Team [...] COVID-19? No / Unsure 06/12/2021 8:48 AM MANUFACTURING SCHEDULER documented as of this encounter Plan of Treatment Upcoming Encounters Date Type Department Care Team (Late st Contact Info) Description 07/13/2024 1:40 PM MANUFACTURING SCHEDULER Office Visit [facility] Medical Group Multispecialty Care [facility] 3 [facility], [address] [place] [address] Kirill Montelongo MD 3 [place] [address] documented as of this encounter Visit Diagnoses Not on filedocumented in this encounter Additional Health Concerns Assessment Noted Time PHQ-9 Depression Total Score: 0 06/12/19 22 9:09 AM MANUFACTURING SCHEDULER documented as of this encounter Care Teams Red Hat Engineer Relationship Specialty Start Date End Date Elpidio Serrato MD [address] [place] [address] [phone] PCP - General INTERNAL MEDICINE 06/19/18 documented as of this encounter
--- OUTSIDE RECORDS SUMMARY | 2024-05-20 07:47 | XMS_ITS | Encounter Summary ---
Author Organization [facility] Address [address] [place] [address]. [place], [place] [address] [place] [address] Care Team Providers Care Staff Assistant Name Role Phone Elpidio Serrato MD Primary Care Provider [phone] Encounter Details Date Type Department Care Team [...] st Contact Info) Description 07/13/2024 1:40 PM AIRCRAFT ENGINE TECHNICIAN Office Visit [facility] Medical Group Multispecialty Care - [address], [address] [place] [address] Kirill Montelongo MD [address] [place] [address] documented as of this encounter Visit Diagnoses Not on filedocumented in this encounter Care Teams Staff Assistant Relationship Specialty Start Date End Date Elpidio Serrato MD [address] [place] [address] [phone] PCP - General INTERNAL MEDICINE 06/19/18 documented as of this encounter
--- OUTSIDE RECORDS SUMMARY | 2024-05-20 07:47 | XMS_ITS | Encounter Summary ---
Author Organization [facility] Address [address] [place] [address]. [place], [place] [address] [place] [address] Care Team Providers Care Acetylene Gas Compressor Name Role Phone Elpidio Serrato MD Primary Care Provider [phone] Reason for Visit * Reason Comments Consent [...] [place] Contact Info) Description 07/13/2024 1:40 PM MATERIALS HANDLING EQUIPMENT OPERATOR Office Visit [facility] Medical Group Multispecialty Care - [facility] 3 [facility], [address] [place] [address] Kirill Montelongo MD 3 [place] [address] documented as of this encounter Visit Diagnoses Not on filedocumented in this encounter Care Teams Acetylene Gas Compressor Relationship Specialty Start Date End Date Elpidio Serrato MD [address] [place] [address] PCP - General INTERNAL MEDICINE 06/19/18 documented as of this encounter
--- OUTSIDE RECORDS SUMMARY | 2024-05-20 07:47 | XMS_ITS | Encounter Summary ---
Author Organization [facility] Address [address] [place] [address]. [place], [place] [address] [place] [address] Care Team Providers Care Trucker Name Role Phone Elpidio Jimneez MD Primary Care Provider [phone] Reason for Visit * Reason Comments Follow Up Hypertension Hyperlipidemia Diabetes Encounter Details Date Type Department Care Team (Late st Contact Info) Description 08/12/2018 8:40 AM CDT Office Visit [facility] Medical Group Family & Internal Medicine [address] [address] Elpidio Jimenez MD [address] [place] [address] Follow Up; Hypertension; Hyperlipidemia; Diabetes Social [...] nightly at bedtime. ??? vitamin D2, ergocalciferol, 37381 UNITS capsule Take 1 capsule by mouth [...] file Gets together: Not on file Attends synagogue service: Not on file Active member of [...] presence unspecified (CMS/HCC) Follows with endocrine at [place], they are adjusting medications 6. Nonproliferative diabetic retinopathy (CMS/HCC) Follows with [facility]. Orders Placed This Encounter ??? [[id number]] Prevnar 13 (Pneumococcal) Cannot display discharge medications since this is not an admission. PCP: ELPIDIO JIMENEZ MD 08/12/2018 documented in this encounter Plan of Treatment Upcoming Encounters Date Type Department Care Team (Late st Contact Info) Description 07/13/2024 1:40 PM TOBACCO BUYER Office Visit [facility] Medical Group Multispecialty Care - [address], [address] [place] [address] Kirill Montelongo MD [address] [place] [address] documented as of this encounter Visit Diagnoses [...] (pneumococcus) documented in this encounter Care Teams Trucker Relationship Specialty Start Date End Date Elpidio Jimenez MD [address] [place] [address] PCP - General INTERNAL MEDICINE 06/19/18 documented as of this encounter
--- OUTSIDE RECORDS SUMMARY | 2024-05-20 07:47 | XMS_ITS | Encounter Summary ---
Author Organization [facility] Address [facility]. [place], [place] [address] [place] [address] Care Team Providers Care Helicopter Engineer Name Role Phone Elpidio Serrato MD Primary Care Provider [phone] Reason for Visit * Reason Comments Knee Pain right knee pain. Pat ient notes she had an injury in 2019 and worries this may be cause of her pain Encounter Details Date Type Department Care Team (Late st Contact Info) Description 06/12/2021 9:00 AM DEVOPS Office Visit [facility] Medical Group Family & Internal Medicine [address] [address] [place] [address] [place] [address] Knee Pain (right knee pain. Patient [...] COVID-19? No / Unsure 06/12/2021 8:48 AM DEVOPS documented as of this encounter Last Filed Vital Signs Vital Sign Reading Time Taken Comments Blood Pressure 109/56 06/12/2021 9:10 AM DEVOPS Pulse 83 06/12/2021 9:10 AM DEVOPS Temperature 36.3 ??C (97.4 ??F) 06/12/2021 9:10 AM CS T Respiratory Rate 16 06/12/2021 9:10 AM DEVOPS Oxygen Saturation 100% 06/12/2021 9:10 AM DEVOPS Inhaled Oxygen Concentration - - Weight 92.8 kg (204 lb 8 oz) 06/12/2021 9:10 AM DEVOPS Height 152.4 cm (5') 06/12/2021 9:10 AM DEVOPS Body Mass Index 39.94 06/12/2021 9:10 AM DEVOPS documented in this encounter Progress Notes * [...] or lock. She has not been taking [id number] medications for the pain as she has [...] nightly at bedtime. ??? vitamin D2, ergocalciferol, 11105 UNITS capsule Take 1 capsule by mouth [...] MG tablet PCP: ELPIDIO SERRATO MD 06/12/2021 PS documented in this encounter Plan of Treatment Upcoming Encounters Date Type Department Care Team (Late st Contact Info) Description 07/13/2024 1:40 PM DEVOPS Office Visit [facility] Medical Group Multispecialty Care - [facility] 3 [facility], [address] [place] [address] Kirill Montelongo MD 3 [place] [address] documented as of this encounter Results * XR KNEE RT 3V (06/12/2021 10:06 AM DEVOPS) Anatomical Region Laterality Modality Knee Radiographic Luba ging 06/12/2021 10:2 1 AM DEVOPS Impressions 06/12/2021 10:23 AM DEVOPS IMPRESSION: Osteoarthritic degenerative change, 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 Ordered By: ELPIDIO SERRATO Interpreted By: Mellisa Phipps MD, 06/12/2021 10:21 AM Narrative 06/12/2021 10:23 AM DEVOPS Examination: XR KNEE RT 3V Date : [...] Total Score: 0 06/12/19 22 9:09 AM DEVOPS documented as of this encounter Care Teams Helicopter Engineer Relationship Specialty Start Date End Date Elpidio Serrato MD [address] [place] [address] PCP - General INTERNAL MEDICINE 06/19/18 documented as of this encounter
--- OUTSIDE RECORDS SUMMARY | 2024-05-20 07:47 | XMS_ITS | Encounter Summary ---
Author Organization [facility] Address [address] [place] [address]. [place], [place] [address] [place] [address] Care Team Providers Care Departmental Secretary Name Role Phone Elpidio Jimenez MD Primary Care Provider [phone] Reason for Visit * Reason Comments Derm Problem wound under pannus. Patient has been using JAZMYN on it and keep it dry and clean. x 2 weeks Encounter Details Date Type Department Care Team (Late st Contact Info) Description 10/12/2019 3:00 PM CDT Office Visit [facility] Medical Group Family & Internal Medicine [address] [address] Elpidio Jimenez MD [address] [place] [address] [phone] Derm Problem (wound under pannus. Patient has [...] nightly at bedtime. ??? vitamin D2, ergocalciferol, 06382 UNITS capsule Take 1 capsule by mouth [...] file Gets together: Not on file Attends mandaeism service: Not on file Active member of [...] st Contact Info) Description 07/13/2024 1:40 PM CATHODE RAY TUBE SALVAGE PROCESSOR Office Visit [facility] Medical [facility] Multispecialty Care - [facility] 3 [facility], [address] [place] [address] Kirill Montelongo MD 3 [place] [address] documented as of this encounter Visit Diagnoses Diagnosis Abscess of skin of abdomen- Primary Cellulitis and abscess of trunk documented in this encounter Care Teams Departmental Secretary Relationship Specialty Start Date End Date Elpidio Jimenez MD [address] [place] [address] PCP - General INTERNAL MEDICINE 06/19/18 documented as of this encounter
--- OUTSIDE RECORDS SUMMARY | 2024-05-20 07:47 | XMS_ITS | Encounter Summary ---
Author Organization [facility] Address [address] [place] [address]. [place], [place] [address] [place] [address] Care Team Providers Care Trim Installer Name Role Phone Unavailable Primary Care Provider [...] (Late Contact Info) Description 07/13/2024 1:40 PM CENTER MACHINE SET UP OPERATOR Office Visit [facility] Medical Group Multispecialty Care - [facility] 3 [facility], [address] [place] [address] Kirill Montelongo MD 3 [place] [address] documented as of this encounter Visit Diagnoses Not on filedocumented in this encounter
--- OUTSIDE RECORDS SUMMARY | 2024-05-20 07:47 | XMS_ITS | Encounter Summary ---
Author Organization [facility] Address [address] [place] [address]. [place], [place] [address] [place] [address] Care Team Providers Care Scrap Metal Burner Name Role Phone Unavailable Primary Care Provider Unavailabl e Reason for Visit * Reason Onset Date Comments Joint Pain 06/17/2018 Encounter Details Date Type Department Care Team (Late st Contact Info) Description 06/17/2018 Telephone [facility] Medical Group Family & Internal Medicine [facility] [address] [place] [address] Elpidio Serrato MD [address] [place], [place] [phone] Joint Pain Social History Tobacco Use Types [...] Koehler after her ortho appointment. Verbalized understanding. PHYSICS ENGINEER * Elpidio Serrato MD - 06/17/2018 10:21 AM CST We can try flexeril 5mg tid prn, but this will not likely help with her knee pain. PHYSICS ENGINEER * Mariela Roth - 06/17/2018 8:18 AM CST Pt calling, hit a patch of ice and went to [facility] Initially they did not find anything, [...] is unsure which one Uses [facility] cv PHYSICS ENGINEER documented in this encounter Plan of Treatment Upcoming Encounters Date Type Department Care Team (Late st Contact Info) Description 07/13/2024 1:40 PM AEROPHYSICS ENGINEER Office Visit [facility] Medical Group Multispecialty Care - [facility] 3 [facility], [address] [place] [address] Kirill Montelongo MD 3 [place] [address] documented as of this encounter Visit Diagnoses Diagnosis Fall- Primary Unspecified fall documented in this encounter
--- OUTSIDE RECORDS SUMMARY | 2024-05-20 07:47 | XMS_ITS | Encounter Summary ---
Author Organization [facility] Address [facility]. [place], [place] [address] [place] [address] Care Team Providers Care Accounting Assistant Name Role Phone Elpidio Serrato MD Primary Care Provider [phone] Reason for Visit * Reason Comments Joint Pain Knee and hand swelli ng, shoulder pain. Patient states her knees were so swollen she was unable to walk. Encounter Details Date Type Department Care Team (Late st Contact Info) Description 11/27/2021 8:00 AM CDT Office Visit [facility] Medical Group Family & Internal Medicine [address] [address] Elpidio Serrato MD [address] [place] [address] [phone] Joint Pain (Knee and hand swelling, shoulder [...] nightly at bedtime. ??? vitamin D2, ergocalciferol, 55565 UNITS capsule Take 1 capsule by mouth [...] st Contact Info) Description 07/13/2024 1:40 PM LOZENGE MAKER Office Visit [facility] Medical Group Multispecialty Care - [facility] 3 [facility], [address] [place] [address] Kirill Montelongo MD 3 [place] [address] documented as of this encounter Procedures Procedure [...] Total Score: 0 06/12/19 22 9:09 AM LOZENGE MAKER documented as of this encounter Care Teams Accounting Assistant Relationship Specialty Start Date End Date Elpidio Serrato MD [address] [place] [address] PCP - General INTERNAL MEDICINE 06/19/18 documented as of this encounter
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
--- OUTSIDE RECORDS SUMMARY | 2024-05-20 07:47 | XMS_ITS | Encounter Summary ---
Author Organization [facility] Address [address] [place] [address]. [place], [place] [address] [place] [address] Care Team Providers Care Lead Database Administrator Name Role Phone Elpidio Serrato MD Primary Care Provider [phone] Reason for Visit * Reason Comments Imm/Inj Encounter Details Date Type Department Care Team ([facility] Contact Info) Description 02/16/2020 11:40 AM CDT Allied Health/Nurse Visit [facility] Family & Internal Medicine [address] [address] Imm/Inj Social History Tobacco Use Types Packs/Day [...] Upcoming Encounters Date Type Department Care Team ([facility] Contact Info) Description 07/13/2024 1:40 PM AUTOMOBILE BODY WORKER Office Visit [facility] Multispecialty Care - [facility] [address] [facility], [address] [place] [address] Kirill Montelongo MD 3 [place] [address] documented as of this encounter Visit Diagnoses Diagnosis Need for immunization against influenza- Primary Need for prophylactic vaccination and inoculation against influenza documented in this encounter Care Teams Lead Database Administrator Relationship Specialty Start Date End Date Elpidio Serrato MD [address] [place] [id number] PCP - General INTERNAL MEDICINE 06/19/18 documented as of this encounter
--- OUTSIDE RECORDS SUMMARY | 2024-05-20 07:47 | XMS_ITS | Encounter Summary ---
Author Organization [facility] Address [address] [place] [address]. [place], [place] [address] [place] [address] Care Team Providers Care Subassembler Name Role Phone Elpidio Serrato MD Primary Care Provider [phone] Encounter Details Date Type Department Care Team [...] st Contact Info) Description 07/13/2024 1:40 PM TELEPHONE CLERK Office Visit [facility] Multispecialty Care - [address], [address] [place] [address] Kirill Montelongo MD 3 [place] [address] documented as of this encounter Visit Diagnoses Not on filedocumented in this encounter Care Teams Subassembler Relationship Specialty Start Date End Date Elpidio Serrato MD [address] [place] [address] PCP - General INTERNAL MEDICINE 06/19/18 documented as of this encounter
--- OUTSIDE RECORDS SUMMARY | 2024-05-20 07:47 | XMS_ITS | Encounter Summary ---
Author Organization [facility] Address [address] [place] [address]. [place], [place] [address] [place] [address] Care Team Providers Care Intelligence Operations Name Role Phone Elpidio Serrato MD Primary Care Provider [phone] Reason for Visit * Reason Comments Form (SCAN) [facility] Encounter Details Date Type Department Care Team (Late Contact Info) Description 06/19/2018 Scan HEALTH INFO [facility] Scanned, Documents Form (SCAN) ([facility]) Social History Tobacco Use Types Packs/Day [...] (Late Contact Info) Description 07/13/2024 1:40 PM ROENTGENOLOGIST Office Visit [facility] Multispecialty Care - [facility] [address] [facility], [address] [place] [address] Kirill Montelongo MD 3 [place] [address] documented as of this encounter Visit Diagnoses Not on filedocumented in this encounter Care Teams Intelligence Operations Relationship Specialty Start Date End Date Elpidio Serrato MD [address] [place] [address] PCP - General INTERNAL MEDICINE 06/19/18 documented as of this encounter
--- OUTSIDE RECORDS SUMMARY | 2024-05-20 07:47 | XMS_ITS | Encounter Summary ---
Author Organization [facility] Address [address] [place] [address]. [place], [place] [address] [place] [address] Care Team Providers Care Farm Marketer Name Role Phone Unavailable Primary Care Provider [...] Upcoming Encounters Date Type Department Care Team ([facility] Contact Info) Description 07/13/2024 1:40 PM HARDWARE PRESS OPERATOR Office Visit [facility] Multispecialty Care - [address], [address] [place] [address] Kirill Montelongo MD 3 [place] [address] documented as of this encounter Visit Diagnoses Not on filedocumented in this encounter
--- OUTSIDE RECORDS SUMMARY | 2024-05-20 07:47 | XMS_ITS | Encounter Summary ---
Author Organization [facility] Address [address] [place] [address]. [place], [place] [address] [place] [address] Care Team Providers Care Senior Commissary Agent Name Role Phone Elpidio Serrato MD Primary Care Provider [phone] Encounter Details Date Type Department Care Team (Late st Contact Info) Description 12/27/2020 Abstract [facility] [address] [place] [phone] Abstract, Doc [facility] Social History Tobacco [...] st Contact Info) Description 07/13/2024 1:40 PM CROWD CONTROLLER Office Visit [facility] Multispecialty Care - [address], [address] [place] [address] Kirill Montelongo MD 3 [place] [address] documented as of this encounter Procedures Procedure Name Priority Date/Time Associated Diagnosis Comments HEMOGLOBIN, GLYCOSYLATED Routine 07/13/2020 documented in this encounter Results * HEMOGLOBIN, GLYCOSYLATED (07/13/2020) HGB A1C 6.8 % 07/13/2020 us Doc [facility] Abstract LABORATORY Final Result documented in this encounter Visit Diagnoses Not on filedocumented in this encounter Care Teams Senior Commissary Agent Relationship Specialty Start Date End Date Elpidio Serrato MD [address] [place] [address] PCP - General INTERNAL MEDICINE 06/19/18 documented as of this encounter
--- OUTSIDE RECORDS SUMMARY | 2024-05-20 07:47 | XMS_ITS | Encounter Summary ---
Author Organization [facility] Address [address] [place] [address]. [place], [place] [address] [place] [address] Care Team Providers Care Pari Mutual Ticket Checker Name Role Phone Unavailable Primary Care Provider [...] st Contact Info) Description 07/13/2024 1:40 PM HEAT TREATER HELPER Office Visit [facility] Multispecialty Care - [facility] [address] [facility], [address] [place] [address] Kirill Montelongo MD 3 [place] [address] documented as of this encounter Visit Diagnoses Not on filedocumented in this encounter
--- OUTSIDE RECORDS SUMMARY | 2024-05-20 07:47 | XMS_ITS | Encounter Summary ---
Author Organization [facility] Address [address] [place] [address]. [place], [place] [address] [place] [address] Care Team Providers Care Circuit Rider Name Role Phone Elpidio Serrato MD Primary Care Provider [phone] Encounter Details Date Type Department Care Team [...] st Contact Info) Description 07/13/2024 1:40 PM PLAY WRITER Office Visit [facility] Medical [facility] Multispecialty Care [facility] [address] [facility], [address] [place] [address] Kirill Montelongo MD 3 [place] [address] documented as of this encounter Visit Diagnoses Not on filedocumented in this encounter Additional Health Concerns Assessment Noted Time PHQ-9 Depression Total Score: 1 02/16/20 21 9:46 AM CDT documented as of this encounter Care Teams Circuit Rider Relationship Specialty Start Date End Date Elpidio Serrato MD [address] [place] [phone] PCP - General INTERNAL MEDICINE 06/19/18 documented as of this encounter
--- OUTSIDE RECORDS SUMMARY | 2024-05-20 07:52 | XMS_ITS | Encounter Summary ---
Author Organization [facility] Address [address] [place] [address] Phone Care Team Providers Care Bearingizer Name Role Phone Elpidio Serrato MD Primary Care Provider [phone] Encounter Details Date Type Department Care Team (Latest Contact Info) Description 03/02/2024 11:40 AM CDT Office Visit [facility] Endocrinology Metabolism and Lipid [address] [facility] 13th [place] [address] [place] [address] Merna Bell MD [address] [facility] [address] [place], [place] [id number] Type 2 diabetes mellitus with hyperlipidemia (HCC) [...] on file Legal Sex Female 3:59 AM OUTSIDE PARTS SALESMAN Gender Identity Female 05/13/2021 4:21 PM OUTSIDE PARTS SALESMAN Sexual Orientation Not on file documented as [...] units plus sliding scale Labs today at [facility] laboratory, 3rd floor documented in this encounter [...] Interval Hx: Pt underwent 3-vessel CABG at [facility] on 01/20/2024 for CABG x3 with OROZCO [...] fracture 04/29/2023 Cataract CHF (congestive heart failure) ([facility]/HCC) ([facility]) Clavicle enlargement 06/16/2018 Will image to determine etiology. Coronary artery disease Coronary artery disease due to calcified coronary lesion 01/20/2024 Diabetes mellitus ([facility]) Diabetic neuropathy ([facility]) 01/21/2024 Diabetic retinopathy ([facility]) Glaucoma Hypertension Hypothyroidism 11/13/2014 Knee pain 01/04/2015 Leucocytosis 01/22/2024 Multiparity History Of ___ Previous Pregnancies - 7 pregnancies, 2 children - C-sections. (Added by TW [facility]) Nonproliferative diabetic retinopathy ([facility]) 11/03/2009 Osteoarthritis of knee 12/16/2007 Personal history [...] labs, imaging, and diagnostics independently reviewed in [facility] and commented on below. Allergies: Pseudoephedrine [...] panel Pro B-type natriuretic peptide Thyroid Function [place] Lipid panel POCT hemoglobin A1c POCT glucose Merna Bell MD art objects supervisor [facility] in [facility] Division of Endocrinology, Metabolism, & Lipid Research [address] [place] [address] [address] documented in this encounter Plan of Treatment Not on file documented as of this encounter Procedures Procedure Name Priority Date/Time Associated Diagnosis Comments POCT HEMOGLOBIN A1C Routine 03/02/2024 1 1:35 AM CDT Type 2 diabetes mellitus with hyperlipidemia (HCC) POCT GLUCOSE 32913 Routine 03/02/2024 11 :33 AM CDT Type [...] revised on 2017. Triglycerides 209(H) <=149 mg/dL [facility] Comment: Interpretive Data Ages < or = [...] revised on 2017. HDL 45 >=40 mg/dL [facility] Comment: Interpretive Data Ages < or = [...] on 2017. LDL, calculated 81 <=129 mg/dL [facility] Comment: Interpretive Data Ages < or = [...] revised on 2024. Non-HDL Cholesterol 116 mg/dL [facility] Comment: Interpretive Data Ages < or = [...] last revised on 2017. Chol/HDL ratio 4 [facility] Blood 03/02/2024 12:2 0 PM CDT 03/02/2024 12:49 PM CDT Merna Bell MD LAB BLOOD ORDERABLES Final Re sult Performing Organization Address City/[facility] Co de Phone Number [facility] [place] [address] * Thyroid Function [place] (03/02/2024 12:20 PM CDT) TSH 1.21 0.30 - 4.20 mcIUnit/mL Blood 03/02/2024 12:2 0 PM CDT 03/02/2024 12:49 PM CDT Merna Bell MD LAB BLOOD ORDERABLES Final Re sult Performing Organization Address [facility] de Phone Number [facility] Department [place] [address] * (ABNORMAL) Pro B-type natriuretic peptide (03/02/2024 [...] MD LAB BLOOD ORDERABLES Final Re sult [facility] Department [place] [address] * (ABNORMAL) Renal function panel (03/02/2024 12:20 PM CDT) Sodium 143 135 - 145 mmol/L Potassium, pl 3.3 3.3 - 4.9 mmol/L [facility] Chloride 104 97 - 110 mmol/L [facility] CO2 23 22 - 32 mmol/L [facility] Anion gap 16(H) 2 - 15 mmol/L [facility] BUN 21 6 - 25 mg/dL [facility] Creatinine 1.26(H) 0.60 - 1.10 mg/dL [facility] Glucose 204(H) 70 - 199 mg/dL [facility] Comment: Interpretive Data Fasting glucose >/= 126 [...] 2022. Calcium 9.2 8.5 - 10.3 mg/dL [facility] Phosphorus, pl 4.3 2.3 - 4.5 mg/dL [facility] Albumin 3.8 3.5 - 5.0 g/dL [facility] Blood 03/02/2024 12:2 0 PM CDT 03/02/2024 12:49 PM CDT Merna Bell MD LAB BLOOD ORDERABLES Final Re sult Performing Organization Address [facility] Co de Phone Number [facility] Department [place] [address] * (ABNORMAL) Reticulocyte Count (03/02/2024 12:20 PM CDT) [facility] Signature Retics, absolute 0.058 0.020 - 0.087 M/cumm Retics 1.5 0.4 - 2.9 % [facility] Reticulocyte Hgb 28.7(L) 30.5 - 38.0 pg [facility] Blood 03/02/2024 12:2 0 PM CDT 03/02/2024 12:49 PM CDT Merna Bell MD LAB BLOOD ORDERABLES Final Re sult Performing Organization Address City/[facility]/ZIP Co de Phone Number [facility] Department [place] [address] * Vitamin B12 (03/02/2024 12:20 PM CDT) [facility] Vitamin B12 281 230 - 1,250 pg/mL Blood 03/02/2024 12:2 0 PM CDT 03/02/2024 12:49 PM CDT Merna Bell MD LAB BLOOD ORDERABLES Final Re sult Performing Organization Address City/[facility]/ZIP Co de Phone Number [facility] Department [place] [address] * (ABNORMAL) Iron profile w/ IBC (03/02/2024 12:20 PM CDT) [facility] Iron 31(L) 35 - 145 mcg/dL TIBC 237(L) 250 - 400 mcg/dL [facility] Transferrin saturation 13(L) 20 - 50 % [facility] Blood 03/02/2024 12:2 0 PM CDT 03/02/2024 12:49 PM CDT Merna Bell MD LAB BLOOD ORDERABLES Final Re sult Performing Organization Address City/[facility] Co de Phone Number [facility] Department [place] [address] * (ABNORMAL) CBC with auto differential (03/02/2024 12:20 PM CDT) [facility] WBC 7.8 3.8 - 9.9 K/cumm Hgb 10.7(L) 11.9 - 15.5 g/dL [facility] Hct 33.4(L) 35.6 - 45.5 % [facility] Plt 261 150 - 400 K/cumm [facility] MPV 10.7 9.1 - 12.3 fL [facility] RBC 3.81(L) 3.90 - 5.20 M/cumm [facility] MCV 87.7 81.3 - 96.4 fL [facility] MCH 28.1 27.1 - 33.3 pg [facility] MCHC 32.0(L) 32.3 - 35.7 g/dL [facility] RDW CV 13.1 11.1 - 14.9 % [facility] RDW SD 41.5 35.7 - 48.1 fL [facility] NRBC abs 0.00 0.00 - 0.01 K/cumm [facility] Blood 03/02/2024 12:2 0 PM CDT 03/02/2024 12:49 PM CDT Merna Bell MD LAB BLOOD ORDERABLES Final Re sult [facility] Department [place] [address] * POCT hemoglobin A1c (03/02/2024 11:35 AM [...] deficiencies documented in this encounter Care Teams Bearingizer Relationship Specialty Start Date End Date Elpidio Serrato MD PCP - General Internal Medicine 06/09/18 documented as of this encounter
--- OUTSIDE RECORDS SUMMARY | 2024-05-20 07:52 | XMS_ITS | Clinical Summary ---
Author Organization [facility] Address [address] [place] [address] Care Team Providers Care Trouble Tracer Name Role Phone Elpidio Serrato MD Primary Care Provider [phone] Allergies Active Allergy Reactions Criticality Noted Date Comments Pseudoephedrine Palpitations Low Valacyclovir Other (See comments) Low 08/12/2018 put me in renal failure Medications blood glucose diagnostic (glucose blood) strip Testing once daily 100 each 2 10/17/19 19 Active aspirin 81 mg enteric coated tabletIndications:p revention of thrombosis Take 1 tablet (81 mg total) by mouth every morning Active acetaminophen ER (TYLENOL) 650 mg 8 hr tabletIndications:P ain Take 1 tablet (650 mg total) by mouth every 6 (six) hours as needed for pain Active pen needle, diabetic (BD Ultra-Fine Hailee Pen Needle) 32 gauge x 5/32 needleIndications:T ype 2 diabetes mellitus with 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, with long-term current use of insulin, unspecified laterality (HCC) Use 4X daily 300 each 3 12/04/19 23 Active brimonidine-timoloL (Combigan) 0.2-0.5 % ophthalmic solutionIndications :Primary open angle glaucoma (POAG) of both eyes, moderate stage Administer 1 drop into the left eye 2 (two) times a day 15 mL 3 02/12/20 23 Active Additional Information Patient taking differently:1 drop left eye 2 times daily,Indications: open angle glaucoma, Informant: Self, Reported on 01/17/2024 atorvastatin (LIPITOR) 40 mg tablet Take 1 tablet (40 mg total) by mouth daily 90 tablet 3 10/29/19 24 025 Active Additional Information Patient taking differently:40 mg oralEvery morning, Indications: hyperlipidemia, Informant: Self, Reported on 01/17/2024 latanoprost (XALATAN) 0.005 % ophthalmic solutionIndications :Primary open angle glaucoma (POAG) of both eyes, moderate stage INSTILL 1 DROP INTO BOTH EYES NIGHTLY 7.5 mL 3 11/11/19 24 Active Additional Information Patient taking differently: 1 drop each eye Nightly, Indications: open angle glaucoma, Informant: Self, Reported on 01/17/2024 calcium carbonate (TUMS) 500 mg (200 mg elemental calcium) chewable tablet Take 1 tablet/chew tab (500 mg total) by mouth daily 90 tablet/chew tab 3 11/17/19 24 025 Active Additional Information Patient taking differently:500 mg oralEvery morning, Indications: Hypocalcemia Prevention, Informant: Self, Reported on 01/17/2024 furosemide (LASIX) 20 mg tabletIndications:w ater retention Take 0.5 tablets (10 mg total) by mouth every morning Active empagliflozin (Jardiance) 10 mg tabletIndications:T ype 2 diabetes mellitus (HCC) Take 1 tablet (10 mg total) by mouth daily 90 tablet 3 01/28/20 Active oxyCODONE (ROXICODONE) 5 mg immediate release tabletIndications:P ain Take 1 tablet (5 mg total) by mouth every 4 (four) hours as needed for pain 01/28/20 Active insulin glargine (LANTUS) 100 unit/mL (3 mL) pen for injection Inject 20 Units under the skin daily before breakfast 01/28/20 Active Additional Information Patient taking differently: 17 UnitssubcutaneousNightly, Reported on 02/14/2024 pen needle, diabetic (Pen Needle) 32 gauge x 5/32 needle Use as directed once a day. 100 each 01/28/20 Active pen needle, diabetic 32 gauge x 5/32 needle Use as directed 3 times a day. 100 each 01/28/20 Active insulin lispro (HumaLOG) 100 unit/mL pen [...] for Sliding Scale Insulin Instructions. 15 mL 01/28/20 Active pen needle, diabetic 32 gauge x 5/32 needle Use as directed 3 times a day. 100 each 01/28/20 Active senna 8.6 mg tablet Take 1 tablet by mouth 2 (two) times a day 02/05/20 Active cyanocobalamin, vitamin B-12, (Vitamin B-12) 5,000 mcg tablet, sublingualIndicatio ns:Vitamin B12 deficiency Place 5,000 mcg under the tongue daily 90 tablet 3 03/02/20 24 025 Active metoprolol XL (TOPROL-XL) 25 mg extended release tablet Take 0.5 tablets (12.5 mg total) by mouth daily Hold for SBP < 100 or HR < 60 45 tablet 3 03/03/20 24 Active ergocalciferol (VITAMIN D) 50,000 unit capsule TAKE 1 CAPSULE BY MOUTH ONCE WEEKLY 12 capsule 1 03/30/20 24 Active semaglutide (OZEMPIC) 2 mg/dose (8 mg/3 mL) pen injector injection Inject 2 mg under the skin once a week 9 mL 3 03/30/20 24 Active levothyroxine (SYNTHROID) 88 mcg tablet TAKE 1 TABLET BY MOUTH EVERY DAY 90 tablet 3 04/07/20 24 Active clopidogreL (PLAVIX) 75 mg tablet Take 1 tablet (75 mg total) by mouth daily 90 tablet 3 04/21/20 24 025 Active clopidogreL (PLAVIX) 75 mg tablet Take 1 tablet (75 mg total) by mouth daily 01/29/20 24 024 Disconti nued(Reo rder) Active Problems Problem Noted Date Diagnosed Date Anemia 2024 AF (paroxysmal atrial fibrillation) ([facility]/HCC) Assessment & Plan (01/27/2024 1:07 PM CDT): [...] cut at dc Coronary artery disease involving bishop paiute heart 0 12/12/2023 Encounter for preprocedural cardiovascular exami [facility] 12/12/2023 ROSE (dyspnea on exertion) 11/19/2023 Stable [...] D2. Assessment & Plan (06/13/2020 1:43 PM COMPLIANCE MONITOR): Check 25OHD, especially if considering therapy for osteoporosis. Assessment & Plan (02/08/2020 3:28 PM CDT): Consider bone DXA with next visit in person, if possible. Assessment & Plan (08/24/2019 10:11 AM CDT): Continue vitamin D supplementation, may be important if you encounter COVID-19. Stay home but get some sun when it comes out. Assessment & Plan (04/01/2019 11:31 AM COMPLIANCE MONITOR): Levels normal 06/2018. Continue weekly ergocalciferol Clavicle enlargement 06/16/2018 Overview (06/16/2018): Will image to determine etiology. Assessment & Plan (06/16/2018 9:20 PM COMPLIANCE MONITOR): X-ray shows osteoarthritis with osteophytes. Odd, but does not need follow-up. Primary open angle glaucoma (POAG) of both eyes, moderate stage 06/11/2018 Assessment & Plan (07/15/2023 8:54 AM COMPLIANCE MONITOR): Doing well without concerns IOP at goal [...] concerns. Assessment & Plan (06/22/2022 7:41 AM COMPLIANCE MONITOR): POW1 EXTRACTION CATARACT - PHACOEMULSIFICATION AND LENS [...] OS Assessment & Plan (06/15/2022 8:25 AM COMPLIANCE MONITOR): POD1 EXTRACTION CATARACT - PHACOEMULSIFICATION AND LENS [...] concerns. Assessment & Plan (06/04/2022 2:51 PM COMPLIANCE MONITOR): Progression of field - plan for goniotomy at time of surgery Continue drops at this time Assessment & Plan (05/19/2021 4:27 PM COMPLIANCE MONITOR): POAG OU Mild HVF with progression of [...] OU Assessment & Plan (04/25/2020 8:08 AM COMPLIANCE MONITOR): POAG, former Dr. Thomas patient Mild OU [...] weeks. Assessment & Plan (07/03/2019 9:12 AM COMPLIANCE MONITOR): Patient returns S/P SLT OD -05/28/2019 -IOP Today by Ta 13/12 by tonopen. -A1C was around 7% at last visit on March 31. RTC 5 months for intraocular pressure (IOP) by applanation and HANS Drops: Combigan BID OU Latanoprost QHS OD Assessment & Plan (04/23/2019 10:48 AM COMPLIANCE MONITOR): Patient returns for 6 months follow-up with [...] 06/11/2018 Assessment & Plan (07/15/2023 8:54 AM COMPLIANCE MONITOR): Lenses doing well Assessment & Plan (06/22/2022 7:41 AM COMPLIANCE MONITOR): The patient understands the risks, benefits, alternatives [...] eye. Assessment & Plan (06/04/2022 2:52 PM COMPLIANCE MONITOR): NS OU The patient understands the risks, [...] eye. Assessment & Plan (05/19/2021 4:27 PM COMPLIANCE MONITOR): Now becoming VS Plan for CEIOL\goniotomy in [...] Master Assessment & Plan (04/16/2020 8:17 AM COMPLIANCE MONITOR): Nearing visual significance May need CEIOL/MIGS soon, but monitor for now Assessment & Plan (01/25/2020 8:46 AM CDT): Nearing visual significance May need CEIOL/MIGS soon, but monitor for now Assessment & Plan (12/05/2019 7:42 PM CDT): Pt ed. Defer cataract extraction (CE) until signs/sx indicate. Assessment & Plan (07/03/2019 9:13 AM COMPLIANCE MONITOR): NVS. Continue to Monitor. I am scribing in the presence of Dr. Thomas on 07/03/2019, Sandy Aguirre OSC. I have examined the patient and agree with the resident/fellow's findings and plan as documented. Niranjan Thomas MD Assessment & Plan (04/23/2019 10:45 AM COMPLIANCE MONITOR): HALLEY Joseph scribing for and in the [...] calories. Assessment & Plan (06/13/2020 1:43 PM COMPLIANCE MONITOR): Glucose control could not be fully assessed [...] doses. Assessment & Plan (04/01/2019 11:28 AM COMPLIANCE MONITOR): Diabetes is worsening. Increase Lantus to 50 [...] months. Assessment & Plan (06/16/2018 9:16 PM COMPLIANCE MONITOR): Diabetes is improving with treatment. Continue current [...] recheck. Assessment & Plan (06/13/2020 1:39 PM COMPLIANCE MONITOR): Has been well controlled on low dose levothyroxine, will check TSH. Assessment & Plan (02/08/2020 3:27 PM CDT): TSH is perfect, no changes to levothyroxine dose. Assessment & Plan (04/01/2019 11:27 AM COMPLIANCE MONITOR): Continue current replacement, 88 mcg. Will check TSH today Assessment & Plan (06/16/2018 9:17 PM COMPLIANCE MONITOR): Thyroid functions are normal on current replacement, 88 mcg. No changes. Actinic keratosis 07/17/2012 Osteoarthritis of knee 12/16/2007 Assessment & Plan (06/16/2018 9:19 PM COMPLIANCE MONITOR): Follow-up with ux specialist. Hyperlipidemia 07/21/2006 Assessment & Plan (11/15/2023 [...] months. Assessment & Plan (06/13/2020 1:44 PM COMPLIANCE MONITOR): Last LDL was 90, but diabetes therapies have changed. Will recheck. Assessment & Plan (02/08/2020 3:26 PM CDT): LDL is at target, continue simvastatin. Assessment & Plan (04/01/2019 11:29 AM COMPLIANCE MONITOR): Lipid abnormalities are improving with treatment. LDL is 47 in 06/2018. Continue simvastatin 40 mg daily Lipids will be reassessed in 6 months. Assessment & Plan (06/16/2018 9:17 PM COMPLIANCE MONITOR): Lipid abnormalities are improving with treatment. LDL is 97 mg/dl. The patient was referred to the bellman. and Pharmacotherapy as ordered. Lipids will be reassessed in 6 months. Obesity 07/21/2006 Assessment & Plan (01/25/2024 12:48 PM CDT): - BMI 40.32 on admission - provide bariatric equipment Assessment & Plan (04/01/2019 11:30 AM COMPLIANCE MONITOR): Obesity is unchanged. She is less active after snf. Discussed the patient's BMI. The BMI is [...] Pharmacotherapy as ordered. Restructure the plan after snf in November. Hypertension 02/19/2006 Assessment & Plan [...] appointment. Assessment & Plan (06/16/2018 9:18 PM COMPLIANCE MONITOR): Hypertension is worsening, BP has increased to [...] Type Department Care Team Description 04/21/2024 Telephone [facility] Cardiology [address] [facility] [address] [place] [address] [place] [address] Fabi Collier NP 03/30/2024 10:30 AM COMPLIANCE MONITOR Office Visit [facility] Endocrinology Metabolism and Lipid [address] 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 8[address] [place] [phone] Columba Leslie NP Coronary artery disease involving bishop paiute heart, unspecified vessel or lesion type, unspecified whether angina present (Primary Dx) 02/26/2024 11:36 AM CDT - 02/26/2024 11:59 PM CDT Hospital Encounter [facility] Rad[facility] [address] [place] [address] Coronary artery disease involving bishop paiute heart, unspecified vessel or lesion type, unspecified whether angina present Discharge Disposition: Discharge to home or self care 02/24/2024 Orders Only [facility] Cardiology [address] [place] [address] 8th [place] [address] [place] [address] Fabi Collier NP CAD, multiple vessel (Primary Dx); Congestive heart failure, unspecified HF chronicity, unspecified heart failure type (HCC); ROSE (dyspnea on exertion); Abnormal stress echocardiogram; Hx of CABG 02/19/2024 Telephone [facility] Cardiology [address] [place] [address] 8th [place] [address] [place] [address] Fabi Collier NP from Last 3 Months Immunizations Name Administration Dates Next Due Influenza, Trivalent, High D ose, Split, Preservative Free, Intramuscular 03/06/2019 Influenza, Unspecified 02/16/2020,03/06/2019 Pneumococcal Conjugate PCV 13 08/12/2018 Pneumococcal Polysaccharide PPV23 04/29/2017 ZOSTER LIVE 04/29/2017 Surgical History Surgery Date Site/Laterality Comments IA DELIVERY ONLY Section - in 1972 and 1975 (Added by TW Conv) IA APPENDECTOMY unkown dates per pt IA TENDON SHEATH INCISION Hand Incision Tendon Sheath Of A Finger - right hand, III finger, / (Added by TW Conv) CATARACT EXTRACTION 06/14/2022 Right CE/IOL + goniotomy Medical History Medical History Date Comments Multiparity History Of ___ P revious Pregnancies - 7 pregnancies, 2 children - C-sections. (Added by TW Conv) Personal history of other sp ecified conditions History of chest pain - Stre ss test negative on 08/01/06 (Added by TW Conv) Cataract Glaucoma Diabetes mellitus ([facility]) Diabetic retinopathy ([facility]) Nonproliferative diabetic re tinopathy ([facility]) 11/03/2009 Coronary artery disease Hypertension CHF (congestive heart failur e) (CMS/HCC) ([facility]) Thyroid disease Coronary artery disease due to calcified coronary lesion 01/20/2024 Vitamin D deficiency 04/01/2019 Type 2 diabetes mellitus wit h hyperlipidemia ([facility]) 12/07/2016 Last A1C 5.9%, without compl ication Trigger finger of left thumb 12/09/2017 Pseudophakia of both eyes 06/11/2018 Primary open angle glaucoma (POAG) of both eyes, moderate stage 06/11/2018 Osteoarthritis of knee 12/16/2007 Knee pain 01/04/2015 Hypothyroidism 11/13/2014 Clavicle enlargement 06/16/2018 Will image to determine etiology. Age-related osteoporosis wit hout current pathological fracture 04/29/2023 Actinic keratosis 07/17/2012 Diabetic neuropathy ([facility]) 01/21/2024 Leucocytosis 01/22/2024 Family History [...] (Added by TW Conv) Blood Clot Sister Malig Hyperthermia Neg Hx Pseudochol deficiency Neg [...] file Legal Sex Female 3:59 AM COMPLIANCE MONITOR Gender Identity Female 05/13/2021 4:21 PM COMPLIANCE MONITOR Sexual Orientation Not on file Obstetrics History Last Filed Vital Signs Vital Sign Reading Time Taken Comments Blood Pressure 121/74 03/30/2024 10:22 AM COMPLIANCE MONITOR Pulse 78 03/30/2024 10:22 AM COMPLIANCE MONITOR Temperature 36.7 ??C (98.1 ??F) 03/30/2024 10:[address] Respiratory Rate 18 01/28/2024 10:39 AM CDT Oxygen Saturation 100% 02/26/2024 12:10 PM CDT Inhaled Oxygen Concentration - - Weight 86.3 kg (190 lb 3.2 oz) 03/30/2024 10:22 AM COMPLIANCE MONITOR Height 149.9 cm (4' 11 ) 03/30/2024 10:22 AM COMPLIANCE MONITOR Body Mass Index 38.42 03/30/2024 10:22 AM COMPLIANCE MONITOR Plan of Treatment Health Maintenance Due Date Last Done Comments Colon Cancer Screening-Colonoscopy 1950 Depression Screening 1950 Hepatitis C Screening 1950 Foot Exam 1950 DTaP/Tdap/Td Vaccine (1 - Tdap) 1960 Hepatitis B Screening 1967 Well Visit 65+ 2014 Zoster Vaccine (2 of 3) 06/24/2017 04/29/2017 Influenza Vaccine (#1) 2024 0, 03/06/2019, 03/06/2019 Dilated Eye Exam 07/14/2024 07/15/2023, [...] 08/12/2018, 04/12 Medical Devices Implanted Type Area Auto Body Mechanic Apprentice Device Identifier Shelf Expiration Date Model / Serial / Lot [employer] Lens Iol Posterior Biconvex Optic Single Piece Envista 6.0x12.5 +18.0d Hydrophobic Acrylic [id number] - [id number] - [id number] Implanted:Qty: 1 on 06/14/2022 by Makayla Ramos MD at [facility] Lens Right: Lens [employer] [id number] 10/10/2024 [id number] / [id number] 60 / [employer] Lens Iol Posterior Biconvex Optic Single Piece Envista 6.0x12.5 +18.0d Hydrophobic Acrylic [id number] - [id number] - [id number] Implanted:Qty: 1 on 08/16/2022 by Makayla Ramos MD at [facility] Lens Left: Eye [employer] [id number] 05/12/2025 [id number] / [id number] / [id number] [employer] Sternalock Hernan 2.4mm 16mm Self Drill Lock Sternum Cancellous 73-3546 - [id number] Implanted:Qty: 4 on 01/20/2024 by Jeff Alaniz MD at [facility] N/A: Sternum [employer] 73-2416 / / Trial [id number] Achv Atriclip Tony Exclusion System [id number] - [id number] Implanted:Qty: 1 on 01/20/2024 by Stan Treviño MD at [facility] N/A: Heart Atricure ACHV40 / / Description:clinical trial i tem [id number] ACHV ATRICLIP TONY EXCLUSION SYSTEM [id number] [employer] Suture [place] Cor Knot Pre Loaded Fastener Device Micro Titanium 0 24566 - S0 - [id number] Implanted:Qty: 1 on 01/20/2024 by Stan Treviño MD at [facility] N/A: Heart [employer] [id number] 06/12/2026 20694 / 0 / [id number] [employer] Suture [place] Cor Knot Pre Loaded Fastener Device Micro Titanium 0 54515 - S0 - [id number] Implanted:Qty: 1 on 01/20/2024 by Stan Treviño MD at [facility] N/A: Heart [employer] [id number] 09/09/2026 29509 / 0 / [id number] [employer] Suture [place] Cor Knot Pre Loaded Fastener Device Micro Titanium 0 17819 - S0 - [id number] Implanted:Qty: 1 on 01/20/2024 by Stan Treviño MD at [facility] N/A: Heart [employer] [id number] 07/10/2026 36166 / 0 / [id number] [employer] Suture [place] Cor Knot Pre Loaded Fastener Device Micro Titanium 0 26996 - S0 - [id number] Implanted:Qty: 1 on 01/20/2024 by Stan Treviño MD at [facility] N/A: Heart [employer] [id number] 10/10/2026 64534 / 0 / [id number] Atricure Device Left Atrial Appendage Malleable Shaft 180 Degree Rotation White Atriclip Flex V 40mm Flexv40 Achv40 - [id number] Implanted:Qty: 1 on 01/20/2024 by Stan Treviño MD at [facility] N/A: Heart Atricure 07/11/2026 [id number] / / [id number] Description:LEFT ATRIAL APPE NDAGE S/B clinical trial item [id number] ACHV ATRICLIP TONY EXCLUSION SYSTEM [id number] [employer] Sternalock 360 Sternal Closure 74-0004 - [id number] Implanted:Qty: 1 on 01/20/2024 by Jeff Alaniz MD at [facility] N/A: Sternum [employer] [id number] 11/04/2028 74-0004 / / [id number] [employer] Sternalock Hernan 2.4mm 14mm Self Drill Lock Sternum Cancellous 73-2414 - [id number] Implanted:Qty: 12 on 01/20/2024 by Jeff Alaniz MD at [facility] N/A: Sternum [employer] 73-2414 / / Procedures Procedure Name Priority Date/Time Associated Diagnosis Comments CBC WITH AUTO DIFFERENTIAL Routine 04/27/2024 9:24 AM COMPLIANCE MONITOR Anemia, unspecified type EGFR Routine 03/02/2024 12:20 [...] diabetes mellitus with hyperlipidemia (HCC) POCT GLUCOSE 85344 Routine 03/02/2024 11:33 AM CDT Type 2 diabetes mellitus with hyperlipidemia (HCC) XR CHEST PA LATERAL 2 VIEWS Schedule Routine, Read Routine (OP Routine) 02/26/2024 11:42 AM CDT Coronary artery disease involving bishop paiute heart, unspecified vessel or lesion type, unspecified whether angina present ALBUMIN CREATININE RATIO, URINE Routine 10/29/2023 9:30 [...] CBC with auto differential (04/27/2024 9:24 AM COMPLIANCE MONITOR) WBC 7.8 3.8 - 10.8 Thousand/u L [facility] RBC, POC 4.16 3.80 - [...] Diagnostics-S t [place] Blood 04/27/2024 9:24 AM COMPLIANCE MONITOR 04/27/2024 9:25 AM COMPLIANCE MONITOR us Lia Mariano COMMUNITY ORGANIZATION DIRECTOR LAB BLOOD ORDERABLES Phyllis alanis Result [facility] [address] [place] [address] * (ABNORMAL) eGFR (03/02/2024 12:20 PM CDT) [...] MD LAB BLOOD ORDERABLES Final Re sult [facility] Department [place] [address] * Differential, auto (03/02/2024 12:20 PM CDT) Neutrophil abs 4.9 1.5 - 6.5 K/cumm Imm gran abs 0.0 0.0 - 0.1 K/cumm [facility] Lymphocyte abs 2.1 0.8 - 3.3 K/cumm [facility] Monocyte abs 0.6 0.2 - 0.8 K/cumm [facility] Eosinophil abs 0.1 0.0 - 0.5 K/cumm [facility] Basophil abs 0.0 0.0 - 0.1 K/cumm [facility] Neutrophil pct 62.9 % [facility] Comment: Interpretive Data Percent cell count reference ranges are not reported, since discordance with absolute values may lead to misinterpretation of CBC data. Current Interpretive Data was last revised on 2017. Imm gran pct 0.3 % [facility] Comment: Interpretive Data Percent cell count reference ranges are not reported, since discordance with absolute values may lead to misinterpretation of CBC data. Current Interpretive Data was last revised on 2017. Lymphocyte pct 27.0 % [facility] Comment: Interpretive Data Percent cell count reference ranges are not reported, since discordance with absolute values may lead to misinterpretation of CBC data. Current Interpretive Data was last revised on 2017. Monocyte pct 7.9 % [facility] Comment: Interpretive Data Percent cell count reference ranges are not reported, since discordance with absolute values may lead to misinterpretation of CBC data. Current Interpretive Data was last revised on 2017. Eosinophil pct 1.4 % [facility] Comment: Interpretive Data Percent cell count reference ranges are not reported, since discordance with absolute values may lead to misinterpretation of CBC data. Current Interpretive Data was last revised on 2017. Basophil pct 0.5 % [facility] Comment: Interpretive Data Percent cell count reference ranges are not reported, since discordance with absolute values may lead to misinterpretation of CBC data. Current Interpretive Data was last revised on 2017. Blood 03/02/2024 12:2 0 PM CDT 03/02/2024 12:49 PM CDT us Merna Bell MD LAB BLOOD ORDERABLES Final Re sult [facility] Department [place] [address] * (ABNORMAL) Pro B-type natriuretic peptide (03/02/2024 [...] Final Re sult Performing Organization Address [facility] Co de Phone Number [facility] [place] [address] * Thyroid Function [place] (03/02/2024 12:20 PM CDT) Pathologist [facility] TSH 1.21 0.30 - 4.20 mcIUnit/mL Blood 03/02/2024 12:2 0 PM CDT 03/02/2024 12:49 PM CDT Merna Bell MD LAB BLOOD ORDERABLES Final Re sult Performing Organization Address [facility] Co de Phone Number [facility] [place] [address] * (ABNORMAL) Iron profile w/ IBC (03/02/2024 12:20 PM CDT) [facility] Iron 31(L) 35 - 145 mcg/dL TIBC 237(L) 250 - 400 mcg/dL [facility] Transferrin saturation 13(L) 20 - 50 % [facility] Blood 03/02/2024 12:2 0 PM CDT 03/02/2024 12:49 PM CDT Merna Bell MD LAB BLOOD ORDERABLES Final Re sult Performing Organization Address [facility] Co de Phone Number [facility] [place] [address] * (ABNORMAL) CBC with auto differential (03/02/2024 12:20 PM CDT) [facility] WBC 7.8 3.8 - 9.9 K/cumm Hgb 10.7(L) 11.9 - 15.5 g/dL [facility] Hct 33.4(L) 35.6 - 45.5 % [facility] Plt 261 150 - 400 K/cumm [facility] MPV 10.7 9.1 - 12.3 fL [facility] RBC 3.81(L) 3.90 - 5.20 M/cumm [facility] MCV 87.7 81.3 - 96.4 fL [facility] MCH 28.1 27.1 - 33.3 pg [facility] MCHC 32.0(L) 32.3 - 35.7 g/dL [facility] RDW CV 13.1 11.1 - 14.9 % [facility] RDW SD 41.5 35.7 - 48.1 fL [facility] NRBC abs 0.00 0.00 - 0.01 K/cumm [facility] Blood 03/02/2024 12:2 0 PM CDT 03/02/2024 12:49 PM CDT Merna Bell MD LAB BLOOD ORDERABLES Final Re sult Performing Organization Address [facility] Co de Phone Number [facility] Department [place] [address] * (ABNORMAL) Reticulocyte Count (03/02/2024 12:20 PM CDT) [facility] Retics, absolute 0.058 0.020 - 0.087 M/cumm Retics 1.5 0.4 - 2.9 % [facility] Reticulocyte Hgb 28.7(L) 30.5 - 38.0 pg [facility] Blood 03/02/2024 12:2 0 PM CDT 03/02/2024 12:49 PM CDT Merna Bell MD LAB BLOOD ORDERABLES Final Re sult Performing Organization Address City/[facility]/ZIP Co de Phone Number [facility] [place] [address] * Vitamin B12 (03/02/2024 12:20 PM CDT) [facility] Vitamin B12 281 230 - 1,250 pg/mL Blood 03/02/2024 12:2 0 PM CDT 03/02/2024 12:49 PM CDT Merna Bell MD LAB BLOOD ORDERABLES Final Re sult [facility] Department [place] [address] * (ABNORMAL) Renal function panel (03/02/2024 12:20 PM CDT) Pathologist [facility] Sodium 143 135 - 145 mmol/L Potassium, pl 3.3 3.3 - 4.9 mmol/L [facility] Chloride 104 97 - 110 mmol/L [facility] CO2 23 22 - 32 mmol/L [facility] Anion gap 16(H) 2 - 15 mmol/L [facility] BUN 21 6 - 25 mg/dL [facility] Creatinine 1.26(H) 0.60 - 1.10 mg/dL [facility] Glucose 204(H) 70 - 199 mg/dL [facility] Comment: Interpretive Data Fasting glucose [...] 2022. Calcium 9.2 8.5 - 10.3 mg/dL [facility] Phosphorus, pl 4.3 2.3 - 4.5 mg/dL [facility] Albumin 3.8 3.5 - 5.0 g/dL [facility] Blood 03/02/2024 12:2 0 PM CDT 03/02/2024 12:49 PM CDT Merna Bell MD LAB BLOOD ORDERABLES Final Re sult [facility] Department [place] [address] * (ABNORMAL) Lipid panel (03/02/2024 12:20 PM [...] on 2017. Triglycerides 209(H) <=149 mg/dL [facility] Comment: Interpretive Data Ages < or [...] revised on 2017. HDL 45 >=40 mg/dL [facility] Comment: Interpretive Data Ages < [...] on 2017. LDL, calculated 81 <=129 mg/dL [facility] Comment: Interpretive Data Ages < [...] revised on 2024. Non-HDL Cholesterol 116 mg/dL [facility] Comment: Interpretive Data Ages < [...] last revised on 2017. Chol/HDL ratio 4 [facility] Blood 03/02/2024 12:2 0 PM CDT 03/02/2024 12:49 PM CDT Merna Bell MD LAB BLOOD ORDERABLES Final Re sult [facility] [place] [address] * POCT hemoglobin A1c (03/02/2024 11:35 AM [...] IMG XR PROCEDURES Final Resul t * Albumin Creatinine Ratio, Urine (10/29/2023 9:30 AM CDT) Microalb, Ur 7.9 0.0 - 22.9 mg/L [facility] Random Urine Creatinine 109.6 mg/dL [facility] Microalb/Creat Ratio 7.2 0.0 - 29.9 mg/g [facility] Urine 10/29/2023 9:30 AM CDT 10/29/2023 11:19 AM CDT Lia Mariano NP LAB URINE ORDERABLES Phyllis l Result [facility] * Dexa Axial Skeleton Bone Density 1 or 2 Site (12/03/2022 10:04 AM CDT) Anatomical Region Laterality Modality Body N/A Radiographic Luba ging Narrative 12/04/2022 1:59 PM CDT Patient Name: Isabelle Lutz Date of : 1950 Date of scan: 12/03/2022 Bone mineral density was performed on a HoloIntellisense Discovery Densitometer. ?? Based on machine cross-calibration [...] by the International Society of Clinical Densitometry. [id number] Merna Bell MD IMG DXA PROCEDURES Final Resu lt from Last 3 Months or Most Recently Relevant to Health Maintenance Insurance MEDICARE [facility] MEDICARE [facility] MEDICARE MEDICARE [facility] Advance Directives For more information, please contact: [phone] * Full Code (Latest Code Status on File) Date Activated Date Inactivated Comments 01/20/2024 5:39 PM 01/28/2024 5:37 PM * Full Code Date Activated Date Inactivated Comments 11/25/2023 10:11 AM 11/25/2023 6:07 PM * Full Code Date Activated Date Inactivated Comments 11/15/2023 4:07 PM 11/16/2023 7:24 PM Care Teams Trouble Tracer Relationship Specialty Start Date End Date Elpidio Serrato MD PCP - General Internal Medicine 06/09/18
--- OUTSIDE RECORDS SUMMARY | 2024-05-20 07:52 | XMS_ITS | Referral Summary ---
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 kidney disease, with long-term current use of insulin (HCC) (Primary Dx); Hypothyroidism, unspecified type; Anemia, unspecified type; Age-related osteoporosis without current pathological fracture 03/02/2024 3:15 PM CDT Lab [facility] ([facility]) [address] [place] [id number] Mixed hyperlipidemia; 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; Heart failure, unspecified HF chronicity, unspecified heart failure type (HCC); Type 2 diabetes mellitus with hyperlipidemia (HCC); Iron deficiency anemia, unspecified iron deficiency anemia type 03/02/2024 11:40 AM CDT Office Visit [facility] Endocrinology Metabolism and Lipid [address]th [place] [address] [place] [phone] Merna Bell MD Type 2 diabetes mellitus with hyperlipidemia (HCC) (Primary Dx); Iron deficiency anemia, unspecified iron deficiency anemia type; Heart failure, unspecified HF chronicity, unspecified heart failure type (HCC); 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; Mixed hyperlipidemia; Vitamin B12 deficiency 02/26/2024 11:36 AM CDT - 02/26/2024 11:59 PM CDT Hospital Encounter [facility] [address] [place] [address] Coronary artery disease involving [place] heart, unspecified vessel or lesion type, unspecified whether angina present Discharge Disposition: Discharge to home or self care 02/26/2024 12:00 PM CDT Office Visit [facility] Cardiothoracic Surgery [address] [place] [address] 8th Floor [address] Room [address] [place] [phone] Columba Leslie NP Coronary artery disease involving [place] heart, unspecified vessel or lesion type, unspecified whether angina present (Primary Dx) 02/24/2024 Orders Only [facility] Cardiology [address] [place] [address] 8th [place] [address] [place] [address] Fabi Collier NP CAD, multiple vessel (Primary Dx); Congestive heart failure, unspecified HF chronicity, unspecified heart failure type (HCC); ROSE (dyspnea on exertion); Abnormal stress echocardiogram; Hx of CABG 02/19/2024 Telephone [facility] Cardiology [address] [place] [address] 8th [place] [address] [place] [address] Fabi Collier NP from Last 3 Months Allergies Active Allergy [...] by mouth daily 90 tablet 3 01/28/20 24 Active oxyCODONE (ROXICODONE) 5 mg immediate release [...] Date Anemia 2024 AF (paroxysmal atrial fibrillation) ([facility]) Assessment & Plan (01/27/2024 1:07 PM CDT): [...] cut at dc Coronary artery disease involving [place] heart 0 12/12/2023 Encounter for preprocedural cardiovascular exami [facility] [place] 12/12/2023 ROSE (dyspnea on exertion) 11/19/2023 Stable [...] D2. Assessment & Plan (06/13/2020 1:43 PM FRAME BENDER): Check 25OHD, especially if considering therapy for osteoporosis. Assessment & Plan (02/08/2020 3:28 PM CDT): Consider bone DXA with next visit in person, if possible. Assessment & Plan (08/24/2019 10:11 AM CDT): Continue vitamin D supplementation, may be important if you encounter COVID-19. Stay home but get some sun when it comes out. Assessment & Plan (04/01/2019 11:31 AM FRAME BENDER): Levels normal 06/2018. Continue weekly ergocalciferol Clavicle enlargement 06/16/2018 Overview (06/16/2018): Will image to determine etiology. Assessment & Plan (06/16/2018 9:20 PM FRAME BENDER): X-ray shows osteoarthritis with osteophytes. Odd, but does not need follow-up. Primary open angle glaucoma (POAG) of both eyes, moderate stage 06/11/2018 Assessment & Plan (07/15/2023 8:54 AM FRAME BENDER): Doing well without concerns IOP at goal [...] concerns. Assessment & Plan (06/22/2022 7:41 AM FRAME BENDER): POW1 EXTRACTION CATARACT - PHACOEMULSIFICATION AND LENS [...] OS Assessment & Plan (06/15/2022 8:25 AM FRAME BENDER): POD1 EXTRACTION CATARACT - PHACOEMULSIFICATION AND LENS [...] concerns. Assessment & Plan (06/04/2022 2:51 PM FRAME BENDER): Progression of field - plan for goniotomy at time of surgery Continue drops at this time Assessment & Plan (05/19/2021 4:27 PM FRAME BENDER): POAG OU Mild HVF with progression of [...] OU Assessment & Plan (04/25/2020 8:08 AM FRAME BENDER): POAG, former Dr. Thomas patient Mild OU [...] weeks. Assessment & Plan (07/03/2019 9:12 AM FRAME BENDER): Patient returns S/P SLT OD -05/28/2019 -IOP Today by Ta 24/04 by tonopen. -A1C was around 7% at last visit on March 31. RTC 5 months for intraocular pressure (IOP) by applanation and HANS Drops: Combigan BID OU Latanoprost QHS OD Assessment & Plan (04/23/2019 10:48 AM FRAME BENDER): Patient returns for 6 months follow-up with [...] 06/11/2018 Assessment & Plan (07/15/2023 8:54 AM FRAME BENDER): Lenses doing well Assessment & Plan (06/22/2022 7:41 AM FRAME BENDER): The patient understands the risks, benefits, alternatives [...] eye. Assessment & Plan (06/04/2022 2:52 PM FRAME BENDER): NS OU The patient understands the risks, [...] eye. Assessment & Plan (05/19/2021 4:27 PM FRAME BENDER): Now becoming VS Plan for CEIOL\goniotomy in [...] Master Assessment & Plan (04/16/2020 8:17 AM FRAME BENDER): Nearing visual significance May need CEIOL/MIGS soon, but monitor for now Assessment & Plan (01/25/2020 8:46 AM CDT): Nearing visual significance May need CEIOL/MIGS soon, but monitor for now Assessment & Plan (12/05/2019 7:42 PM CDT): Pt ed. Defer cataract extraction (CE) until signs/sx indicate. Assessment & Plan (07/03/2019 9:13 AM FRAME BENDER): NVS. Continue to Monitor. I am scribing in the presence of Dr. Thomas on 07/03/2019, HALLEY Ramos. I have examined the patient and agree with the resident/fellow's findings and plan as documented. Niranjan Thomas MD Assessment & Plan (04/23/2019 10:45 AM FRAME BENDER): HALLEY Joseph scribing for and in the [...] calories. Assessment & Plan (06/13/2020 1:43 PM FRAME BENDER): Glucose control could not be fully assessed [...] doses. Assessment & Plan (04/01/2019 11:28 AM FRAME BENDER): Diabetes is worsening. Increase Lantus to 50 [...] months. Assessment & Plan (06/16/2018 9:16 PM FRAME BENDER): Diabetes is improving with treatment. Continue current [...] recheck. Assessment & Plan (06/13/2020 1:39 PM FRAME BENDER): Has been well controlled on low dose levothyroxine, will check TSH. Assessment & Plan (02/08/2020 3:27 PM CDT): TSH is perfect, no changes to levothyroxine dose. Assessment & Plan (04/01/2019 11:27 AM FRAME BENDER): Continue current replacement, 88 mcg. Will check TSH today Assessment & Plan (06/16/2018 9:17 PM FRAME BENDER): Thyroid functions are normal on current replacement, 88 mcg. No changes. Actinic keratosis 07/17/2012 Osteoarthritis of knee 12/16/2007 Assessment & Plan (06/16/2018 9:19 PM FRAME BENDER): Follow-up with patient access specialist. Hyperlipidemia 07/21/2006 Assessment & Plan (11/15/2023 [...] months. Assessment & Plan (06/13/2020 1:44 PM FRAME BENDER): Last LDL was 90, but diabetes therapies have changed. Will recheck. Assessment & Plan (02/08/2020 3:26 PM CDT): LDL is at target, continue simvastatin. Assessment & Plan (04/01/2019 11:29 AM FRAME BENDER): Lipid abnormalities are improving with treatment. LDL is 47 in 06/2018. Continue simvastatin 40 mg daily Lipids will be reassessed in 6 months. Assessment & Plan (06/16/2018 9:17 PM FRAME BENDER): Lipid abnormalities are improving with treatment. LDL is 97 mg/dl. The patient was referred to the nnps. and Pharmacotherapy as ordered. Lipids will be reassessed in 6 months. Obesity 07/21/2006 Assessment & Plan (01/25/2024 12:48 PM CDT): - BMI 40.32 on admission - provide bariatric equipment Assessment & Plan (04/01/2019 11:30 AM FRAME BENDER): Obesity is unchanged. She is less active [...] Pharmacotherapy as ordered. Restructure the plan after long-term in November. Hypertension 02/19/2006 Assessment & Plan [...] appointment. Assessment & Plan (06/16/2018 9:18 PM FRAME BENDER): Hypertension is worsening, BP has increased to [...] on file Legal Sex Female 3:59 AM FRAME BENDER Gender Identity Female 05/13/2021 4:21 PM FRAME BENDER Sexual Orientation Not on file Last Filed Vital Signs Vital Sign Reading Time Taken Comments Blood Pressure 121/74 03/30/2024 10:22 AM FRAME BENDER Pulse 78 03/30/2024 10:22 AM FRAME BENDER Temperature 36.7 ??C (98.1 ??F) 03/30/2024 10:[address] Respiratory Rate 18 01/28/2024 10:39 AM CDT Oxygen Saturation 100% 02/26/2024 12:10 PM CDT Inhaled Oxygen Concentration - - Weight 86.3 kg (190 lb 3.2 oz) 03/30/2024 10:22 AM FRAME BENDER Height 149.9 cm (4' 11 ) 03/30/2024 10:22 AM FRAME BENDER Body Mass Index 38.42 03/30/2024 10:22 AM FRAME BENDER Plan of Treatment Not on file Medical Devices Implanted Type Area Industrial Eng Device Identifier Shelf Expiration Date Model / Serial / Lot [employer] Lens Iol Posterior Biconvex Optic Single Piece Envista 6.0x12.5 +18.0d Hydrophobic Acrylic [id number] - [id number] - [id number] Implanted:Qty: 1 on 06/14/2022 by Makayla Ramos MD at [facility] Lens Right: Lens [employer] [id number] 10/10/2024 [id number] / [id number] / [employer] Lens Iol Posterior Biconvex Optic Single Piece Envista 6.0x12.5 +18.0d Hydrophobic Acrylic [id number] - [id number] - [id number] Implanted:Qty: 1 on 08/16/2022 by Makayla Ramos MD at [facility] Lens Left: Eye [employer] [id number] 05/12/2025 [id number] / [id number] / [id number] [employer] Sternalock Hernan 2.4mm 16mm Self Drill Lock Sternum Cancellous 73-2416 - [id number] Implanted:Qty: 4 on 01/20/2024 by Jeff Alaniz MD at [facility] N/A: Sternum [employer] 73-2416 / / Trial [id number] Achv Atriclip Tony Exclusion System [id number] - [id number] Implanted:Qty: 1 on 01/20/2024 by Stan Treviño MD at [facility] N/A: Heart Atricure [id number] / / Description:clinical trial i tem [id number] ACHV ATRICLIP TONY EXCLUSION SYSTEM [id number] [employer] Suture Derry Cor Knot Pre Loaded Fastener Device Micro Titanium 0 60350 - S0 - [id number] Implanted:Qty: 1 on 01/20/2024 by Stan Treviño MD at [facility] N/A: Heart [employer] [id number] 06/12/2026 65516 / 0 / [id number] [employer] Suture Derry Cor Knot Pre Loaded Fastener Device Micro Titanium 0 07826 - S0 - [id number] Implanted:Qty: 1 on 01/20/2024 by Stan Treviño MD at [facility] N/A: Heart [employer] [id number] 09/09/2026 38118 / 0 / [id number] [employer] Suture Derry Cor Knot Pre Loaded Fastener Device Micro Titanium 0 42361 - S0 - [id number] Implanted:Qty: 1 on 01/20/2024 by Stan Treviño MD at [facility] N/A: Heart [employer] [id number] 07/10/2026 49640 / 0 / [id number] [employer] Suture Derry Cor Knot Pre Loaded Fastener Device Micro Titanium 0 78887 - S0 - [id number] Implanted:Qty: 1 on 01/20/2024 by Stan Treviño MD at [facility] N/A: Heart [employer] [id number] 10/10/2026 42480 / 0 / [id number] Atricure Device Left Atrial Appendage Malleable Shaft 180 Degree Rotation White Atriclip Flex V 40mm Flexv40 Achv40 - [id number] Implanted:Qty: 1 on 01/20/2024 by Stan Treviño MD at [facility] N/A: Heart Atricure 07/11/2026 [id number] / / [id number] Description:LEFT ATRIAL APPE NDAGE S/B clinical trial item [id number] ACHV ATRICLIP TONY EXCLUSION SYSTEM [id number] [employer] Sternalock 360 Sternal Closure 74-0004 - [id number] Implanted:Qty: 1 on 01/20/2024 by Jeff Alaniz MD at [facility] N/A: Sternum [employer] [id number] 11/04/2028 74-0004 / / [id number] [employer] Sternalock Hernan 2.4mm 14mm Self Drill Lock Sternum Cancellous 73-2414 - [id number] Implanted:Qty: 12 on 01/20/2024 by Jeff Alaniz MD at [facility] N/A: Sternum [employer] 73-2414 / / Procedures Procedure Name Priority Date/Time Associated Diagnosis Comments CBC WITH AUTO DIFFERENTIAL Routine 04/27/2024 9:24 AM FRAME BENDER Anemia, unspecified type EGFR Routine 03/02/2024 12:20 [...] diabetes mellitus with hyperlipidemia (HCC) POCT GLUCOSE 03402 Routine 03/02/2024 11:33 AM CDT Type 2 diabetes mellitus with hyperlipidemia (HCC) XR CHEST PA LATERAL 2 VIEWS Schedule Routine, Read Routine (OP Routine) 02/26/2024 11:42 AM CDT Coronary artery disease involving [place] heart, unspecified vessel or lesion type, [...] CBC with auto differential (04/27/2024 9:24 AM FRAME BENDER) WBC 7.8 3.8 - 10.8 Thousand/u L [...] Diagnostics-[facility] t [facility] Basophils 0.6 % [facility] Blood 04/27/2024 9:24 AM FRAME BENDER 04/27/2024 9:25 AM FRAME BENDER us Lia Mariano NP LAB BLOOD ORDERABLES Phyllis l [facility] [address] [place] [address] * (ABNORMAL) eGFR (03/02/2024 12:20 PM CDT) [...] LAB BLOOD ORDERABLES Final Re sult [facility] Department [place] [address] * Differential, auto (03/02/2024 12:20 PM CDT) Neutrophil abs 4.9 1.5 - 6.5 K/cumm Imm gran abs 0.0 0.0 - 0.1 K/cumm [facility] Lymphocyte abs 2.1 0.8 - 3.3 K/cumm [facility] Monocyte abs 0.6 0.2 - 0.8 K/cumm [facility] Eosinophil abs 0.1 0.0 - 0.5 K/cumm [facility] Basophil abs 0.0 0.0 - 0.1 K/cumm [facility] Neutrophil pct 62.9 % [facility] Comment: Interpretive Data Percent cell count reference ranges are not reported, since discordance with absolute values may lead to misinterpretation of CBC data. Current Interpretive Data was last revised on 2017. Imm gran pct 0.3 % [facility] Comment: Interpretive Data Percent cell count reference ranges are not reported, since discordance with absolute values may lead to misinterpretation of CBC data. Current Interpretive Data was last revised on 2017. Lymphocyte pct 27.0 % [facility] Comment: Interpretive Data Percent cell count reference ranges are not reported, since discordance with absolute values may lead to misinterpretation of CBC data. Current Interpretive Data was last revised on 2017. Monocyte pct 7.9 % [facility] Comment: Interpretive Data Percent cell count reference ranges are not reported, since discordance with absolute values may lead to misinterpretation of CBC data. Current Interpretive Data was last revised on 2017. Eosinophil pct 1.4 % [facility] Comment: Interpretive Data Percent cell count reference ranges are not reported, since discordance with absolute values may lead to misinterpretation of CBC data. Current Interpretive Data was last revised on 2017. Basophil pct 0.5 % [facility] Comment: Interpretive Data Percent cell count reference ranges are not reported, since discordance with absolute values may lead to misinterpretation of CBC data. Current Interpretive Data was last revised on 2017. Blood 03/02/2024 12:2 0 PM CDT 03/02/2024 12:49 PM CDT us Merna Bell MD LAB BLOOD ORDERABLES Final Re sult [facility] [address] [facility] Department [place] [address] * (ABNORMAL) Pro B-type natriuretic peptide (03/02/2024 [...] ORDERABLES Final Re sult Performing Organization Address [facility] de Phone Number [facility] [place] [employer] [place] [address] * Thyroid Function [place] (03/02/2024 12:20 PM CDT) TSH 1.21 0.30 - 4.20 mcIUnit/mL Blood 03/02/2024 12:2 0 PM CDT 03/02/2024 12:49 PM CDT Merna Bell MD LAB BLOOD ORDERABLES Final Re sult Performing Organization Address [facility] Co de Phone Number [facility] [place] [employer] [place] [address] * (ABNORMAL) Iron profile w/ IBC (03/02/2024 12:20 PM CDT) Iron 31(L) 35 - 145 mcg/dL TIBC 237(L) 250 - 400 mcg/dL [facility] Transferrin saturation 13(L) 20 - 50 % [facility] Blood 03/02/2024 12:2 0 PM CDT 03/02/2024 12:49 PM CDT Merna Bell MD LAB BLOOD ORDERABLES Final Re sult Performing Organization Address [facility] Co de Phone Number [facility] Department [place] [address] * (ABNORMAL) CBC with auto differential (03/02/2024 12:20 PM CDT) [facility] WBC 7.8 3.8 - 9.9 K/cumm Hgb 10.7(L) 11.9 - 15.5 g/dL [facility] Hct 33.4(L) 35.6 - 45.5 % [facility] Plt 261 150 - 400 K/cumm [facility] MPV 10.7 9.1 - 12.3 fL [facility] RBC 3.81(L) 3.90 - 5.20 M/cumm [facility] MCV 87.7 81.3 - 96.4 fL [facility] MCH 28.1 27.1 - 33.3 pg [facility] MCHC 32.0(L) 32.3 - 35.7 g/dL [facility] RDW CV 13.1 11.1 - 14.9 % [facility] RDW SD 41.5 35.7 - 48.1 fL [facility] NRBC abs 0.00 0.00 - 0.01 K/cumm [facility] Blood 03/02/2024 12:2 0 PM CDT 03/02/2024 12:49 PM CDT Merna Bell MD LAB BLOOD ORDERABLES Final Re sult [facility] [place] [employer] [place] [address] * (ABNORMAL) Reticulocyte Count (03/02/2024 12:20 PM CDT) [facility] Retics, absolute 0.058 0.020 - 0.087 M/cumm Retics 1.5 0.4 - 2.9 % [facility] Reticulocyte Hgb 28.7(L) 30.5 - 38.0 pg [facility] Blood 03/02/2024 12:2 0 PM CDT 03/02/2024 12:49 PM CDT Merna Bell MD LAB BLOOD ORDERABLES Final Re sult Performing Organization Address [facility] Co de Phone Number [facility] Department [place] [address] * Vitamin B12 (03/02/2024 12:20 PM CDT) Pathologist [facility] Vitamin B12 281 230 - 1,250 pg/mL Blood 03/02/2024 12:2 0 PM CDT 03/02/2024 12:49 PM CDT Merna Bell MD LAB BLOOD ORDERABLES Final Re sult Performing Organization Address [facility] de Phone Number [facility] [place] [address] * (ABNORMAL) Renal function panel (03/02/2024 12:20 PM CDT) [facility] Sodium 143 135 - 145 mmol/L Potassium, pl 3.3 3.3 - 4.9 mmol/L [facility] Chloride 104 97 - 110 mmol/L [facility] CO2 23 22 - 32 mmol/L [facility] Anion gap 16(H) 2 - 15 mmol/L [facility] BUN 21 6 - 25 mg/dL [facility] Creatinine 1.26(H) 0.60 - 1.10 mg/dL [facility] Glucose 204(H) 70 - 199 mg/dL [facility] Comment: Interpretive Data Fasting glucose >/= [...] 2022. Calcium 9.2 8.5 - 10.3 mg/dL [facility] Phosphorus, pl 4.3 2.3 - 4.5 mg/dL [facility] Albumin 3.8 3.5 - 5.0 g/dL [facility] Blood 03/02/2024 12:2 0 PM CDT 03/02/2024 12:49 PM CDT us Merna Bell MD LAB BLOOD ORDERABLES Final Re sult [facility] Department [place] [address] * (ABNORMAL) Lipid panel (03/02/2024 12:20 PM [...] revised on 2017. Triglycerides 209(H) <=149 mg/dL [facility] Comment: Interpretive Data Ages < or [...] revised on 2017. HDL 45 >=40 mg/dL [facility] Comment: Interpretive Data Ages < or [...] on 2017. LDL, calculated 81 <=129 mg/dL [facility] Comment: Interpretive Data Ages < or [...] revised on 2017. Chol/HDL ratio 4 [facility] Blood 03/02/2024 12:2 0 PM CDT 03/02/2024 12:49 PM CDT us Merna Bell MD LAB BLOOD ORDERABLES Final Re sult [facility] [place] [address] * POCT hemoglobin A1c (03/02/2024 11:35 AM CDT) Hemoglobin A1C, POC 7.1 4.0 - 5.6 % Blood 03/02/2024 11:3 5 AM CDT us Merna Bell MD POINT OF CARE TEST ORDERABLES Final Result * POCT glucose (03/02/2024 11:33 AM CDT) Pathologist [facility] Glucose Blood, POC 230 mg/dL Blood 03/02/2024 [...] Creatinine Ratio, Urine (10/29/2023 9:30 AM CDT) Pathologist [facility] Microalb, Ur 7.9 0.0 - 22.9 mg/L [facility] Random Urine Creatinine 109.6 mg/dL [facility] Microalb/Creat Ratio 7.2 0.0 - 29.9 mg/g [facility] Urine 10/29/2023 9:30 AM CDT 10/29/2023 11:19 AM CDT us Lia Mariano ORDER SELECTOR LAB URINE ORDERABLES Phyllis alanis Result [facility] * Dexa Axial Skeleton Bone Density 1 or 2 Site (12/03/2022 10:04 AM CDT) Anatomical Region Laterality Modality Body N/A Radiographic Luba ging Narrative 12/04/2022 1:59 PM CDT Patient Name: Isabelle Lutz Date of : 1950 Date of scan: 12/03/2022 Bone mineral density was performed on a HoloPark[employer] Discovery Densitometer. ?? Based on machine cross-calibration [...] mineral density scan were prepared by Eloisa Cabezas(Paloma)(Zakia)(BD) CBDT ??who is accredited by the International Society of Clinical Densitometry. The overall patient assessment and scan interpretation were performed by Payton Murphy MD who is certified by the International Society of Clinical Densitometry. [id number] Merna Bell MD IMG DXA PROCEDURES Final Resu lt from Last 3 Months or Most Recently Relevant to Health Maintenance Insurance MEDICARE [facility] FEDERAL MEDICARE [facility] MEDICARE MEDICARE [facility] Advance Directives For more information, please contact: [phone] * Full Code (Latest Code Status on File) Date Activated Date Inactivated Comments 01/20/2024 5:39 PM 01/28/2024 5:37 PM * Full Code Date Activated Date Inactivated Comments 11/25/2023 10:11 AM 11/25/2023 6:07 PM * Full Code Date Activated Date Inactivated Comments 11/15/2023 4:07 PM 11/16/2023 7:24 PM Care Teams Automotive Starter Repairer Relationship Specialty Start Date End Date Elpidio Serrato MD PCP - General Internal Medicine 06/09/18
--- OUTSIDE RECORDS SUMMARY | 2024-05-20 07:52 | XMS_ITS | Encounter Summary ---
Author Organization [facility] Healthcare Address [address] [place] [address] Care Team Providers Care Inspector And Sorter Name Role Phone Elpidio Serrato MD Primary Care Provider [phone] Encounter Details Date Type Department Care Team (Latest Contact Info) Description 02/26/2024 11:36 AM CDT - 02/26/2024 11:59 PM CDT Hospital Encounter [facility] [address] [place] [address] Coronary artery disease involving cabazon heart, unspecified vessel or lesion type, unspecified [...] file Legal Sex Female 3:59 AM PATIENT PLACEMENT COORDINATOR Gender Identity Female 05/13/2021 4:21 PM PATIENT PLACEMENT COORDINATOR Sexual Orientation Not on file documented [...] 11:42 AM CDT Coronary artery disease involving cabazon heart, unspecified vessel or lesion type, unspecified [...] Visit Diagnoses Diagnosis Coronary artery disease involving cabazon heart, unspecified vessel or lesion type, unspecified whether angina present documented in this encounter Care Teams Inspector And Sorter Relationship Specialty Start Date End Date Elpidio Serrato MD PCP - General Internal Medicine 06/09/18 documented as of this encounter
--- OUTSIDE RECORDS SUMMARY | 2024-05-20 07:52 | XMS_ITS | Encounter Summary ---
Author Organization [facility] Address [address] [facility] [address] [place] [address] Phone Care Team Providers Care Psychology Instructor Name Role Phone Elpidio Serrato MD Primary Care Provider [phone] Encounter Details Date Type Department Care Team (Latest Contact Info) Description 02/26/2024 12:00 PM CDT Office Visit [facility] Cardiothoracic Surgery [address] [facility] 8th Floor [address] Room [address] [address] Columba Leslie NP [address] [facility] [id number] [place] [address] Coronary artery disease involving orutsararmiut heart, unspecified vessel or lesion type, unspecified [...] on file Legal Sex Female 3:59 AM TRACK MECHANIC Gender Identity Female 05/13/2021 4:21 PM TRACK MECHANIC Sexual Orientation Not on file documented [...] this encounter Progress Notes * Columba Leslie, COMMUNICATIONS PROJECT MANAGER - 02/26/2024 12:00 PM CDT Cardiac-Thoracic Surgery [...] was found to have multivessel diease on [facility] and was evaluated for CABG. [...] stable to transfer to the Rehab facility ([facility]) for continued gait and strength training. [...] fracture 04/29/2023 Cataract CHF (congestive heart failure) ([facility]/HCC) ([facility]) Clavicle enlargement 06/16/2018 Will image to determine etiology. Coronary artery disease Coronary artery disease due to calcified coronary lesion 01/20/2024 Diabetes mellitus ([facility]) Diabetic neuropathy ([facility]) 01/21/2024 Diabetic retinopathy ([facility]) Glaucoma Hypertension Hypothyroidism 11/13/2014 Knee pain 01/04/2015 Leucocytosis 01/22/2024 Multiparity History Of ___ Previous Pregnancies - 7 pregnancies, 2 children - C-sections. (Added by TW Conv) Nonproliferative diabetic retinopathy ([facility]) 11/03/2009 Osteoarthritis of knee 12/16/2007 Personal history of other specified conditions History of chest pain - Stress test negative on 08/01/06 (Added by TW Conv) Primary open angle glaucoma (POAG) of both eyes, moderate stage 06/11/2018 Pseudophakia of both eyes 06/11/2018 Thyroid disease Trigger finger of left thumb 12/09/2017 Type 2 diabetes mellitus with hyperlipidemia ([facility]) 12/07/2016 Last A1C 5.9%, without complication Vitamin D deficiency 04/01/2019 Past Surgical History: Procedure Laterality Date CATARACT EXTRACTION Right 06/14/2022 CE/IOL + goniotomy [place] APPENDECTOMY unkown dates per pt [place] DELIVERY ONLY Section - in 1972 and 1975 (Added by TW Conv) [place] TENDON SHEATH INCISION Hand Incision Tendon Sheath [...] her PCP Dr. Serrato, cardiology Fabi Rater COMMUNICATIONS PROJECT MANAGER, and our office as needed. Thank you for allowing us to participate in the care of this very pleasant patient. Please feel free to contact our office at [phone] with any questions or concerns regarding her care. Columba Leslie, MSN, TIRE ADJUSTER-BC [facility] Division of Cardiothoracic Surgery documented in this encounter Plan of Treatment Not on file documented as of this encounter Visit Diagnoses Diagnosis Coronary artery disease involving orutsararmiut heart, unspecified vessel or lesion type, unspecified whether angina present- Primary documented in this encounter Care Teams Psychology Instructor Relationship Specialty Start Date End Date Elpidio Serrato MD PCP - General Internal Medicine 06/09/18 documented as of this encounter
--- OUTSIDE RECORDS SUMMARY | 2024-05-20 07:52 | XMS_ITS | Encounter Summary ---
Author Organization [facility] Address [address] [place] [address] Phone Care Team Providers Care Hospital Receptionist Name Role Phone Elpidio Serrato MD Primary Care Provider [phone] Reason for Referral * Consultation (Routine) - Authorized Specialty Diagnoses / Procedures Referred By Contact Referred To Contact Cardiac Rehabilitation Diagnoses CAD, multiple vessel Hx of CABG Fabi Collier NP [address] [facility] [address] [place] [address] Phone: tel:[phone] fax:[phone] [place] [address] Cardiopulmonary Rehab [address] [facility] [address] [place] [address] Phone: tel: fax: Referral ID Status Reason Start Date Expiration Date Visits Requested Visits Authorized [id number] Authorized Specialty Services Required 4 2025 1 1 Question Answer Please select the performing region: External Order [171] To loc/pos [facility] Cardiopulmonary Rehab [[id number]] Select a phase: Phase 2 # of visits: 1 [facility] Encounter Details Date Type Department Care Team (Late st Contact Info) Description 02/24/2024 Orders Only [facility] Cardiology [address] [facility] 8th [place] [address] [place] [id number] Fabi Collier NP [address] [facility] [address] [place] [address] CAD, multiple vessel (Primary Dx); Congestive heart [...] on file Legal Sex Female 3:59 AM CUSTOMS COMPLIANCE MANAGER Gender Identity Female 05/13/2021 4:21 PM CUSTOMS COMPLIANCE MANAGER Sexual Orientation Not on file documented [...] status documented in this encounter Care Teams Hospital Receptionist Relationship Specialty Start Date End Date Elpidio Serrato MD PCP - General Internal Medicine 06/09/18 documented as of this encounter
--- OUTSIDE RECORDS SUMMARY | 2024-05-20 07:52 | XMS_ITS | Encounter Summary ---
Author Organization [facility] Address [address] [place] [address] Phone Care Team Providers Care Health Care Technician Name Role Phone Elpidio Serrato MD Primary Care Provider Encounter Details Date Type Department Care Team (Late st Contact Info) Description 04/21/2024 Telephone [facility] Cardiology [address] [facility] 8th [place] [address] [place] [phone] Rater, JAMES Dunlap [address] [facility] [address] [place] [address] Social History Tobacco Use Types Packs/Day Years [...] file Legal Sex Female 3:59 AM HEAD WOOD GRINDER Gender Identity Female 05/13/2021 4:21 PM HEAD WOOD GRINDER Sexual Orientation Not on file documented as of this encounter Ordered Prescriptions Prescription Sig Dispense Quantity Refills Last Filled Start Date End Date clopidogreL (PLAVIX) 75 mg tablet Take 1 tablet (75 mg total) by mouth daily 90 tablet 3 04/21/2024 04/21/2025 documented in this encounter Miscellaneous Notes * Telephone Encounter - Karen Banda CMA - 04/21/2024 2:52 PM HEAD WOOD GRINDER Requested Prescriptions Signed Prescriptions Disp Refills clopidogreL (PLAVIX) 75 mg tablet 90 tablet 3 Sig: Take 1 tablet (75 mg total) by mouth daily Authorizing Provider: GAURAV ROBLERO Ordering User: KAREN BANDA Last provider visit: 02/14/2024 Next provider visit: 08/18/2024 Preferred pharmacy: [facility]/pharmacy #[id number] - [place], [place] - [address] [facility] [place] [id number] Was med refilled or sent back to Provider Pool for clarification? MED WAS REFILLED WOOD GRINDER * Telephone Encounter - Kalpana Sheth - 04/21/2024 12:14 PM CST Rater Pt needs a new prescription for plavix 75 mg. 90 day supply Pharmacy - [facility] at [address] WOOD GRINDER documented in this encounter Plan of Treatment Not on file documented as of this encounter Visit Diagnoses Not on filedocumented in this encounter Discontinued Medications Medication Sig Discontinue Reason Start Date End Da te clopidogreL (PLAVIX) 75 mg tablet Take 1 tablet (75 mg total) by mouth daily Reorder 01/29/2024 04/21/2024 documented as of this encounter Care Teams Health Care Technician Relationship Specialty Start Date End Date Elpidio Serrato MD PCP - General Internal Medicine 06/09/18 documented as of this encounter
--- OUTSIDE RECORDS SUMMARY | 2024-05-20 07:52 | XMS_ITS | Encounter Summary ---
Author Organization [facility] Address [address] [place] [address] Phone Care Team Providers Care Seamless Tube Drawer Name Role Phone Elpidio Serrato MD Primary Care Provider [phone] Encounter Details Date Type Department Care Team (Latest Contact Info) Description 03/30/2024 10:30 AM REGASIFICATION PLANT OPERATOR Office Visit [facility] Endocrinology Metabolism and Lipid [address] [facility] 13th [place] [address] [place] [address] Lia Mariano, WALL TAPER HELPER [address] [place] [address] Type 2 diabetes mellitus with stage 3a [...] on file Legal Sex Female 3:59 AM REGASIFICATION PLANT OPERATOR Gender Identity Female 05/13/2021 4:21 PM REGASIFICATION PLANT OPERATOR Sexual Orientation Not on file documented as of this encounter Last Filed Vital Signs Vital Sign Reading Time Taken Comments Blood Pressure 121/74 03/30/2024 10:22 AM REGASIFICATION PLANT OPERATOR Pulse 78 03/30/2024 10:22 AM REGASIFICATION PLANT OPERATOR Temperature 36.7 ??C (98.1 ??F) 03/30/2024 10:[address] Respiratory Rate - - Oxygen Saturation - - Inhaled Oxygen Concentration - - Weight 86.3 kg (190 lb 3.2 oz) 03/30/2024 10:22 AM REGASIFICATION PLANT OPERATOR Height 149.9 cm (4' 11 ) 03/30/2024 10:22 AM REGASIFICATION PLANT OPERATOR Body Mass Index 38.42 03/30/2024 10:22 AM REGASIFICATION PLANT OPERATOR documented in this encounter Patient Instructions * Patient Instructions* Lia Mariano NP - 03/30/2024 10:30 AM REGASIFICATION PLANT OPERATOR 1. Type 2 diabetes mellitus with stage [...] a dental exam. Vitamin d 83 (10/2023) SIFICATION PLANT OPERATOR SIFICATION PLANT OPERATOR documented in this encounter Ordered Prescriptions Prescription [...] 7.1% (02/2024) Pt underwent 3-vessel CABG at [facility] on 01/20/2024 for CABG x3 with [...] 10 mg Daily. CGM Interpretation - Sensor: [employer]7 Mobile - Wear time: 99.6% - Indication [...] Reclast was never received (ordered per Dr Blel). Infusion center did not call to schedule. [...] with pt. 01/2024: 3- vessel CABG at [facility] for CABG x3 with OROZCO to LAD, [...] failure) ([facility]/HCC) ([facility]) Clavicle enlargement 06/16/2018 Will image to determine etiology. Coronary artery disease Coronary artery disease due to calcified coronary lesion 01/20/2024 Diabetes mellitus (HCC) Diabetic neuropathy (HCC) 01/21/2024 Diabetic retinopathy ([facility]) Glaucoma Hypertension Hypothyroidism 11/13/2014 Knee [...] in 1972 and 1975 (Added by Conv) [place] TENDON SHEATH INCISION Hand Incision [...] labs, imaging, and diagnostics independently reviewed in [facility] and commented on below. Allergies: Pseudoephedrine [...] Vitamin d 83 (10/2023) [facility] Division of Endocrinology, Metabolism, & Lipid Research [address] [place] [address] [address] [address] SIFICATION PLANT OPERATOR documented in this encounter Plan of Treatment Not on file documented as of this encounter Procedures Procedure Name Priority Date/Time Associated Diagnosis Comments CBC WITH AUTO DIFFERENTIAL Routine 04/27/2024 9:24 AM REGASIFICATION PLANT OPERATOR Anemia, unspecified type documented in this encounter Results * (ABNORMAL) CBC with auto differential (04/27/2024 9:24 AM REGASIFICATION PLANT OPERATOR) WBC 7.8 3.8 - 10.8 Thousand/u L Scil Proteins-S christiano Campbell RBC, POC 4.16 3.80 - 5.10 Million/uL Scil Proteins-S christiano Campbell Hgb 11.6(L) 11.7 - 15.5 [...] Diagnostics-S t Adrian Blood 04/27/2024 9:24 AM REGASIFICATION PLANT OPERATOR 04/27/2024 9:25 AM REGASIFICATION PLANT OPERATOR Lia Mariano WALL TAPER HELPER LAB BLOOD ORDERABLES Phyllis l Result JOSE C [employer] [address] [address] [place] [address] documented in this encounter Visit Diagnoses Diagnosis Type 2 diabetes mellitus with stage 3a chronic kidney disease, with long-term current use of insulin ([facility])- Primary Hypothyroidism, unspecified type Anemia, [...] documented as of this encounter Care Teams Seamless Tube Drawer Relationship Specialty Start Date End Date Elpidio Serrato MD PCP - General Internal Medicine 06/09/18 documented as of this encounter
--- OUTSIDE RECORDS SUMMARY | 2024-05-20 07:52 | XMS_ITS | Encounter Summary ---
Author Organization [facility] Healthcare Address [address] [place] [address] Care Team Providers Care Dough Puncher Name Role Phone Elpidio Serrato MD Primary Care Provider [phone] Encounter Details Date Type Department Care Team (Late st Contact Info) Description 03/02/2024 3:[address] 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; [...] on file Legal Sex Female 3:59 AM VULNERABILITY ASSESSMENT ANALYST Gender Identity Female 05/13/2021 4:21 PM VULNERABILITY ASSESSMENT ANALYST Sexual Orientation Not on file documented [...] MD LAB BLOOD ORDERABLES Final Re sult [facility] Department [place] [address] * Differential, auto (03/02/2024 12:20 PM CDT) Neutrophil abs 4.9 1.5 - 6.5 K/cumm Imm gran abs 0.0 0.0 - 0.1 K/cumm [facility] Lymphocyte abs 2.1 0.8 - 3.3 K/cumm [facility] Monocyte abs 0.6 0.2 - 0.8 K/cumm [facility] Eosinophil abs 0.1 0.0 - 0.5 K/cumm [facility] Basophil abs 0.0 0.0 - 0.1 K/cumm [facility] Neutrophil pct 62.9 % [facility] Comment: Interpretive Data Percent cell count reference ranges are not reported, since discordance with absolute values may lead to misinterpretation of CBC data. Current Interpretive Data was last revised on 2017. Imm gran pct 0.3 % [facility] Comment: Interpretive Data Percent cell count reference ranges are not reported, since discordance with absolute values may lead to misinterpretation of CBC data. Current Interpretive Data was last revised on 2017. Lymphocyte pct 27.0 % [facility] Comment: Interpretive Data Percent cell count reference ranges are not reported, since discordance with absolute values may lead to misinterpretation of CBC data. Current Interpretive Data was last revised on 2017. Monocyte pct 7.9 % [facility] Comment: Interpretive Data Percent cell count reference ranges are not reported, since discordance with absolute values may lead to misinterpretation of CBC data. Current Interpretive Data was last revised on 2017. Eosinophil pct 1.4 % [facility] Comment: Interpretive Data Percent cell count reference ranges are not reported, since discordance with absolute values may lead to misinterpretation of CBC data. Current Interpretive Data was last revised on 2017. Basophil pct 0.5 % [facility] Comment: Interpretive Data Percent cell count reference ranges are not reported, since discordance with absolute values may lead to misinterpretation of CBC data. Current Interpretive Data was last revised on 2017. Blood 03/02/2024 12:2 0 PM CDT 03/02/2024 12:49 PM CDT us Merna Bell MD LAB BLOOD ORDERABLES Final Re sult [facility] Department of Laboratories [place], [place] [id number] * (ABNORMAL) CBC with auto differential (03/02/2024 12:20 PM CDT) WBC 7.8 3.8 - 9.9 K/cumm Hgb 10.7(L) 11.9 - 15.5 g/dL [facility] Hct 33.4(L) 35.6 - 45.5 % [facility] Plt 261 150 - 400 K/cumm [facility] MPV 10.7 9.1 - 12.3 fL [facility] RBC 3.81(L) 3.90 - 5.20 M/cumm [facility] MCV 87.7 81.3 - 96.4 fL [facility] MCH 28.1 27.1 - 33.3 pg [facility] MCHC 32.0(L) 32.3 - 35.7 g/dL [facility] RDW CV 13.1 11.1 - 14.9 % [facility] RDW SD 41.5 35.7 - 48.1 fL [facility] NRBC abs 0.00 0.00 - 0.01 K/cumm [facility] Blood 03/02/2024 12:2 0 PM CDT 03/02/2024 12:49 PM CDT Merna Bell MD LAB BLOOD ORDERABLES Final Re sult Performing Organization Address City/[facility] Co de Phone Number [facility] Department [place] [address] * (ABNORMAL) Iron profile w/ IBC (03/02/2024 12:20 PM CDT) [facility] Iron 31(L) 35 - 145 mcg/dL TIBC 237(L) 250 - 400 mcg/dL [facility] Transferrin saturation 13(L) 20 - 50 % [facility] Blood 03/02/2024 12:2 0 PM CDT 03/02/2024 12:49 PM CDT Merna Bell MD LAB BLOOD ORDERABLES Final Re sult Performing Organization Address City/[facility]/ZIP Co de Phone Number [facility] [place] [address] * Vitamin B12 (03/02/2024 12:20 PM CDT) [facility] Vitamin B12 281 230 - 1,250 pg/mL Blood 03/02/2024 12:2 0 PM CDT 03/02/2024 12:49 PM CDT Merna Bell MD LAB BLOOD ORDERABLES Final Re sult Performing Organization Address [facility]/ZIP Co de Phone Number [facility] [place] [address] * (ABNORMAL) Reticulocyte Count (03/02/2024 12:20 PM CDT) Retics, absolute 0.058 0.020 - 0.087 M/cumm Retics 1.5 0.4 - 2.9 % [facility] Reticulocyte Hgb 28.7(L) 30.5 - 38.0 pg [facility] Blood 03/02/2024 12:2 0 PM CDT 03/02/2024 12:49 PM CDT Merna Bell MD LAB BLOOD ORDERABLES Final Re sult Performing Organization Address [facility]/[place] [address] * (ABNORMAL) Renal function panel (03/02/2024 12:20 PM CDT) Sodium 143 135 - 145 mmol/L Potassium, pl 3.3 3.3 - 4.9 mmol/L [facility] Chloride 104 97 - 110 mmol/L [facility] CO2 23 22 - 32 mmol/L [facility] Anion gap 16(H) 2 - 15 mmol/L [facility] BUN 21 6 - 25 mg/dL [facility] Creatinine 1.26(H) 0.60 - 1.10 mg/dL [facility] Glucose 204(H) 70 - 199 mg/dL [facility] Comment: Interpretive Data Fasting glucose >/= [...] 2022. Calcium 9.2 8.5 - 10.3 mg/dL [facility] Phosphorus, pl 4.3 2.3 - 4.5 mg/dL [facility] Albumin 3.8 3.5 - 5.0 g/dL [facility] Blood 03/02/2024 12:2 0 PM CDT 03/02/2024 12:49 PM CDT us Merna Bell MD LAB BLOOD ORDERABLES Final Re sult [facility] Department [place] [address] * (ABNORMAL) Pro B-type natriuretic peptide (03/02/2024 [...] ORDERABLES Final Re sult Performing Organization Address [email or web address]] de Phone Number [facility] [place] [address] * Thyroid Function [place] (03/02/2024 12:20 PM CDT) TSH 1.21 0.30 - 4.20 mcIUnit/mL Blood 03/02/2024 12:2 0 PM CDT 03/02/2024 12:49 PM CDT Merna Bell MD LAB BLOOD ORDERABLES Final Re sult Performing Organization Address [email or web address]] de Phone Number [facility] Department [place] [address] * (ABNORMAL) Lipid panel (03/02/2024 12:20 PM [...] revised on 2017. HDL 45 >=40 mg/dL [facility] Comment: Interpretive Data Ages < or [...] on 2017. LDL, calculated 81 <=129 mg/dL [facility] Comment: Interpretive Data Ages < or [...] revised on 2024. Non-HDL Cholesterol 116 mg/dL [facility] Comment: Interpretive Data Ages < or [...] last revised on 2017. Chol/HDL ratio [address] 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
--- OUTSIDE RECORDS SUMMARY | 2024-05-20 07:53 | XMS_ITS | Encounter Summary ---
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 73 m2 JORGE [...] was last reviewed 2021. Testing performed by: [facility], [address] [place] [address], [place]., [address] Blood 01/31/2024 5:00 AM CDT 01/31/2024 8:23 AM CDT us Notinfile Unknown LAB BLOOD ORDERABLES Final Res ult JORGE EDGE [address] [facility] Department [place] [address] * (ABNORMAL) Pro B-type natriuretic peptide (01/31/2024 [...] Last Revised Date: 2017. Testing performed by: [address] [address] Blood 01/31/2024 5:00 AM CDT 01/31/2024 8:23 AM CDT us Notinfile Unknown LAB BLOOD ORDERABLES Final Res ult JORGE [address] [facility] Department [place] [address] * (ABNORMAL) Basic metabolic panel (01/31/2024 5:00 AM CDT) Sodium 142 135 - 145 mmol/L JORGE Comment:Testing performed by : [address] [address] Potassium, pl 4.5 3.3 - 4.9 mmol/L JORGE Comment:Testing performed by : [address] [address] Chloride 108 97 - 110 mmol/L JORGE Comment:Testing performed by : [address] [address] CO2 21(L) 22 - 32 mmol/L JORGE Comment:Testing performed by : [address] [address] Anion gap 13 2 - 15 mmol/L JORGE Comment:Testing performed by : [address] [address] BUN 28(H) 6 - 25 mg/dL JORGE Comment:Testing performed by : [address] [address] Creatinine 1.50(H) 0.60 - 1.10 mg/dL JORGE Comment:Testing performed by : [address] [address] Glucose 133 70 - 199 mg/dL JORGE [...] was last revised 2022. Testing performed by: [address] [address] Calcium 8.9 8.5 - 10.3 mg/dL JORGE Comment:Testing performed by : [address] [address] Blood 01/31/2024 5:0 0 AM CDT 01/31/2024 8:23 AM CDT us Notinfile Unknown LAB BLOOD ORDERABLES Final Res ult JORGE [address] [facility] Department [place] [address] * Differential, auto (01/31/2024 5:00 AM CDT) Neutrophil abs 4.7 1.5 - 6.5 K/cumm JORGE Comment:Testing performed by : [address] [address] Imm gran abs 0.1 0.0 - 0.1 K/cumm JORGE Comment:Testing performed by : [address] [address] Lymphocyte abs 1.8 0.8 - 3.3 K/cumm JORGE Comment:Testing performed by : [address] [address] Monocyte abs 0.7 0.2 - 0.8 K/cumm JORGE Comment:Testing performed by : [address] [address] Eosinophil abs 0.1 0.0 - 0.5 K/cumm [facility] Comment:Testing performed by : [address] [address] Basophil abs 0.1 0.0 - 0.1 K/cumm [facility] Comment:Testing performed by : [address] [address] Neutrophil pct 61.7 % [facility] Comment: Interpretive Data Percent cell count reference ranges are not reported, since discordance with absolute values may lead to misinterpretation of CBC data. Current Interpretive Data was last revised on 2017. Testing performed by: [address] [address] Imm gran pct 1.6 % [facility] Comment: Interpretive Data Percent cell count reference ranges are not reported, since discordance with absolute values may lead to misinterpretation of CBC data. Current Interpretive Data was last revised on 2017. Testing performed by: [address] [address] Lymphocyte pct 24.4 % [facility] Comment: Interpretive Data Percent cell count reference ranges are not reported, since discordance with absolute values may lead to misinterpretation of CBC data. Current Interpretive Data was last revised on 2017. Testing performed by: [address] [address] Monocyte pct 9.7 % [facility] Comment: Interpretive Data Percent cell count reference ranges are not reported, since discordance with absolute values may lead to misinterpretation of CBC data. Current Interpretive Data was last revised on 2017. Testing performed by: [address] [address] Eosinophil pct 1.9 % [facility] Comment: Interpretive Data Percent cell count reference ranges are not reported, since discordance with absolute values may lead to misinterpretation of CBC data. Current Interpretive Data was last revised on 2017. Testing performed by: [address] [address] Basophil pct 0.7 % [facility] Comment: Interpretive Data Percent cell count reference ranges are not reported, since discordance with absolute values may lead to misinterpretation of CBC data. Current Interpretive Data was last revised on 2017. Testing performed by: [address] [address] Blood 01/31/2024 5:00 AM CDT 01/31/2024 8:23 AM CDT us Notinfile Unknown LAB BLOOD ORDERABLES Final Res ult JORGE [address] [facility] Department [place] [address] * (ABNORMAL) CBC with auto differential (01/31/2024 5:00 AM CDT) WBC 7.6 3.8 - 9.9 K/cumm [facility] Comment:Testing performed by : [address] [address] Hgb 8.2(L) 11.9 - 15.5 g/dL [facility] Comment:Testing performed by : [address] [address] Hct 26.1(L) 35.6 - 45.5 % [facility] Comment:Testing performed by : [address] [address] Plt 352 150 - 400 K/cumm JORGE Comment:Testing performed by : [address] [address] MPV 10.7 9.1 - 12.3 fL JORGE Comment:Testing performed by : [address] [address] RBC 2.80(L) 3.90 - 5.20 M/cumm JORGE Comment:Testing performed by : [address] [address] MCV 93.2 81.3 - 96.4 fL [facility] EDGE Comment:Testing performed by : [address] [address] MCH 29.3 27.1 - 33.3 pg [facility] EDGE Comment:Testing performed by : [address] [address] MCHC 31.4(L) 32.3 - 35.7 g/dL JORGE Comment:Testing performed by : [address], [address] RDW CV 14.6 11.1 - 14.9 % JORGE Comment:Testing performed by : [address] [address] RDW SD 48.3(H) 35.7 - 48.1 fL JORGE Comment:Testing performed by : [address] [address] NRBC abs 0.00 0.00 - 0.01 K/cumm JORGE Comment:Testing performed by : [address], [address] Blood 01/31/2024 5:00 AM CDT 01/31/2024 8:23 AM CDT us Notinfile Unknown LAB BLOOD ORDERABLES Final Res ult JORGE [address] [facility] Department [place] [address] documented in this encounter Visit Diagnoses Not [...] is undergoing Ring Surveillance for admission to [facility]. CAPRI Tolbert [facility] 01/21/2024 01/21/2024 02/04/2024 3:05 AM C DT documented as of this encounter Care Teams Nutrition Services Assistant Relationship Specialty Start Date End Date Elipdio Serrato MD PCP - General Internal Medicine 06/09/18 documented as of this encounter
--- OUTSIDE RECORDS SUMMARY | 2024-05-20 07:53 | XMS_ITS | Encounter Summary ---
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 Testing performed by: [facility], [address] [place] [address], [place]., [address] Blood 02/05/2024 6:06 AM CDT 02/05/2024 9:48 AM CDT us Notinfile Unknown LAB BLOOD ORDERABLES Final Res ult JORGE [facility] Department [place] [address] * (ABNORMAL) Basic metabolic panel (02/05/2024 6:06 AM CDT) [facility] Signature Sodium 140 135 - 145 mmol/L JORGE Comment:Testing performed by : [address] [address] Potassium, pl 4.6 3.3 - 4.9 mmol/L JORGE Comment:Testing performed by : [address] [address] Chloride 107 97 - 110 mmol/L JORGE Comment:Testing performed by : [address] [address] CO2 22 22 - 32 mmol/L JORGE Comment:Testing performed by : [address], [place]., [address] Anion gap 11 2 - 15 mmol/L JORGE Comment:Testing performed by : [address] [address] BUN 26(H) 6 - 25 mg/dL JORGE Comment:Testing performed by : [address] [address] Creatinine 1.40(H) 0.60 - 1.10 mg/dL JORGE Comment:Testing performed by : [address] [address] Glucose 107 70 - 199 mg/dL JORGE [...] was last revised 2022. Testing performed by: [address] [address] Calcium 9.1 8.5 - 10.3 mg/dL JORGE Comment:Testing performed by : [address] [address] Blood 02/05/2024 6:06 AM CDT 02/05/2024 9:48 AM CDT us Notinfile Unknown LAB BLOOD ORDERABLES Final Res ult JORGE [address] [facility] Department [place] [address] * Differential, auto (02/05/2024 6:06 AM CDT) Neutrophil abs 3.6 1.5 - 6.5 K/cumm JORGE Comment:Testing performed by : [address] [address] Imm gran abs 0.0 0.0 - 0.1 K/cumm JORGE Comment:Testing performed by : [address] [address] Lymphocyte abs 1.6 0.8 - 3.3 K/cumm JORGE Comment:Testing performed by : [address] [address] Monocyte abs 0.6 0.2 - 0.8 K/cumm JORGE Comment:Testing performed by : [address] [address] Eosinophil abs 0.1 0.0 - 0.5 K/cumm JORGE Comment:Testing performed by : [address] [address] Basophil abs 0.0 0.0 - 0.1 K/cumm JORGE Comment:Testing performed by : [address] [address] Neutrophil pct 59.7 % JORGE Comment: Interpretive Data Percent cell count reference ranges are not reported, since discordance with absolute values may lead to misinterpretation of CBC data. Current Interpretive Data was last revised on 2017. Testing performed by: [address] [address] Imm gran pct 0.7 % [facility] Comment: Interpretive Data Percent cell count reference ranges are not reported, since discordance with absolute values may lead to misinterpretation of CBC data. Current Interpretive Data was last revised on 2017. Testing performed by: [address] [address] Lymphocyte pct 26.8 % [facility] Comment: Interpretive Data Percent cell count reference ranges are not reported, since discordance with absolute values may lead to misinterpretation of CBC data. Current Interpretive Data was last revised on 2017. Testing performed by: [address] [address] Monocyte pct 10.1 % [facility] Comment: Interpretive Data Percent cell count reference ranges are not reported, since discordance with absolute values may lead to misinterpretation of CBC data. Current Interpretive Data was last revised on 2017. Testing performed by: [address] [address] Eosinophil pct 2.0 % [facility] Comment: Interpretive Data Percent cell count reference ranges are not reported, since discordance with absolute values may lead to misinterpretation of CBC data. Current Interpretive Data was last revised on 2017. Testing performed by: [address] [address] Basophil pct 0.7 % [facility] Comment: Interpretive Data Percent cell count reference ranges are not reported, since discordance with absolute values may lead to misinterpretation of CBC data. Current Interpretive Data was last revised on 2017. Testing performed by: [address] [address] Blood 02/05/2024 6:06 AM CDT 02/05/2024 9:48 AM CDT us Notinfile Unknown LAB BLOOD ORDERABLES Final Res ult JORGE EDGE [address] [facility] Department [place] [address] * (ABNORMAL) CBC with auto differential (02/05/2024 6:06 AM CDT) [facility] WBC 6.0 3.8 - 9.9 K/cumm JORGE Comment:Testing performed by : [address], [address] Hgb 8.1(L) 11.9 - 15.5 g/dL JORGE Comment:Testing performed by : [address] [address] Hct 26.6(L) 35.6 - 45.5 % JORGE Comment:Testing performed by : [address], [address] Plt 343 150 - 400 K/cumm JORGE Comment:Testing performed by : [address], [address] MPV 10.4 9.1 - 12.3 fL JORGE Comment:Testing performed by : [address], [address] RBC 2.79(L) 3.90 - 5.20 M/cumm JORGE Comment:Testing performed by : [address], [address] MCV 95.3 81.3 - 96.4 fL JORGE Comment:Testing performed by : [address], [address] MCH 29.0 27.1 - 33.3 pg JORGE Comment:Testing performed by : [address], [address] MCHC 30.5(L) 32.3 - 35.7 g/dL JORGE Comment:Testing performed by : [address], [address] RDW CV 14.6 11.1 - 14.9 % JORGE Comment:Testing performed by : [address], [address] RDW SD 50.4(H) 35.7 - 48.1 fL JORGE Comment:Testing performed by : [address], [address] NRBC abs 0.00 0.00 - 0.01 K/cumm JORGE Comment:Testing performed by : [facility], [address] [place] [address]., [address] Blood 02/05/2024 6:06 AM CDT 02/05/2024 9:48 AM CDT us Notinfile Unknown LAB BLOOD ORDERABLES Final Res ult [facility] [address] [facility] Department [place] [address] documented in this encounter Visit Diagnoses Not on filedocumented in this encounter Care Teams Fibreglass Lay Up Worker Relationship Specialty Start Date End Date Elpidio Serrato MD PCP - General Internal Medicine 06/09/18 documented as of this encounter
--- OUTSIDE RECORDS SUMMARY | 2024-05-20 07:53 | XMS_ITS | Encounter Summary ---
Author Organization [facility] Address [address] [place] [address] Phone Care Team Providers Care Tab Cutter Name Role Phone Elpidio Serrato MD Primary Care Provider [phone] Encounter Details Date Type Department Care Team (Late st Contact Info) Description 02/19/2024 Telephone 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
--- OUTSIDE RECORDS SUMMARY | 2024-05-20 07:53 | XMS_ITS | Encounter Summary ---
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 Gender Identity Female 05/13/2021 4:21 PM HR REPRESENTATIVE Sexual Orientation Not on file documented [...] Testing performed by: [facility], [address] [place] [address]., [address] Blood 02/02/2024 4:30 AM CDT 02/02/2024 9:37 AM CDT us Notinfile Unknown LAB BLOOD ORDERABLES Final Res ult JORGE EDGE [address] [facility] Department [place] [address] * (ABNORMAL) Basic metabolic panel (02/02/2024 4:30 AM CDT) Pathologist [facility] Sodium 141 135 - 145 mmol/L JORGE EDGE Comment:Testing performed by : [facility], [address] [place] [address], [place]., [address] Potassium, pl 4.2 3.3 - 4.9 mmol/L JORGE Comment:Testing performed by : [address], [place]., [address] Chloride 106 97 - 110 mmol/L JORGE Comment:Testing performed by : [address], [place]., [address] CO2 23 22 - 32 mmol/L [facility] Comment:Testing performed by : [address], [place]., [address] Anion gap 12 2 - 15 mmol/L JORGE Comment:Testing performed by : [address], [place]., [address] BUN 24 6 - 25 mg/dL [facility] Comment:Testing performed by : [address], [place]., [address] Creatinine 1.30(H) 0.60 - 1.10 mg/dL JORGE Comment:Testing performed by : [address], [place]., [address] Glucose 77 70 - 199 mg/dL [facility] Comment: Interpretive Data Fasting glucose [...] was last revised 2022. Testing performed by: [address] [address] Calcium 8.9 8.5 - 10.3 mg/dL [facility] Comment:Testing performed by : [address], [place]., [address] Blood 02/02/2024 4:30 AM CDT 02/02/2024 9:37 AM CDT us Notinfile Unknown LAB BLOOD ORDERABLES Final Res ult JORGE [facility] [place] [address] documented in this encounter Visit Diagnoses Not [...] Surveillance for admission to 7300. CAPRI Tolbert [facility] 01/21/2024 01/21/2024 02/04/2024 3:05 AM C DT documented as of this encounter Care Teams Account Relationship Manager Relationship Specialty Start Date End Date Elpidio Serrato MD PCP - General Internal Medicine 06/09/18 documented as of this encounter
--- OUTSIDE RECORDS SUMMARY | 2024-05-20 07:53 | XMS_ITS | Encounter Summary ---
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 Testing performed by: [facility], [address] [place] [address], [place]., [address] Blood 01/29/2024 6:2 0 AM CDT 01/29/2024 8:23 AM CDT us Notinfile Unknown LAB BLOOD ORDERABLES Final Res ult JORGE [address] [facility] [place] [address] * (ABNORMAL) Comprehensive metabolic panel (01/29/2024 6:20 AM CDT) Sodium 140 135 - 145 mmol/L JORGE Comment:Testing performed by : [address] [address] Potassium, pl 4.5 3.3 - 4.9 mmol/L JORGE Comment:Testing performed by : [address] [address] Chloride 105 97 - 110 mmol/L JORGE Comment:Testing performed by : [address] [address] CO2 20(L) 22 - 32 mmol/L JORGE Comment:Testing performed by : [address] [address] Anion gap 15 2 - 15 mmol/L JORGE Comment:Testing performed by : [address] [address] BUN 26(H) 6 - 25 mg/dL JORGE Comment:Testing performed by : [address] [address] Creatinine 1.20(H) 0.60 - 1.10 mg/dL JORGE Comment:Testing performed by : [address] [address] Glucose 75 70 - 199 mg/dL JORGE [...] was last revised 2022. Testing performed by: [address] [address] Calcium 8.9 8.5 - 10.3 mg/dL JORGE Comment:Testing performed by : [address] [address] Bilirubin, total 0.4 0.1 - 1.2 mg/dL JORGE Comment:Testing performed by : [address] [address] Protein, pl 5.6(L) 6.5 - 8.5 g/dL JORGE Comment:Testing performed by : [address] [address] Albumin 3.0(L) 3.5 - 5.0 g/dL JORGE Comment:Testing performed by : [address] [address] Alk phos 99 40 - 130 Units/L JORGE Comment:Testing performed by : [address] [address] ALT 9 7 - 45 Units/L JORGE Comment:Testing performed by : [address] [address] AST 19 10 - 45 Units/L JORGE Comment:Testing performed by : [address] [address] Blood 01/29/2024 6:20 AM CDT 01/29/2024 8:23 AM CDT us Notinfile Unknown LAB BLOOD ORDERABLES Final Res ult JORGE EDGE [address] [facility] [place] [address] * (ABNORMAL) Basic metabolic panel (01/29/2024 6:20 AM CDT) Sodium 140 135 - 145 mmol/L JORGE EDGE Comment:Testing performed by : [facility], [address] [place] [address]., [address] Potassium, pl 4.5 3.3 - 4.9 mmol/L JORGE Comment:Testing performed by : [address], [place]., [address] Chloride 105 97 - 110 mmol/L JORGE Comment:Testing performed by : [address], [place]., [address] CO2 20(L) 22 - 32 mmol/L JORGE Comment:Testing performed by : [address], [place]., [address] Anion gap 15 2 - 15 mmol/L JORGE Comment:Testing performed by : [address] [address] BUN 26(H) 6 - 25 mg/dL JORGE Comment:Testing performed by : [address], [place]., [address] Creatinine 1.20(H) 0.60 - 1.10 mg/dL JORGE Comment:Testing performed by : [address] [address] Glucose 75 70 - 199 mg/dL [facility] Comment: Interpretive Data Fasting glucose >/= 126 [...] was last revised 2022. Testing performed by: [address] [address] Calcium 8.9 8.5 - 10.3 mg/dL JORGE Comment:Testing performed by : [address] [address] Blood 01/29/2024 6:20 AM CDT 01/29/2024 8:23 AM CDT us Notinfile Unknown LAB BLOOD ORDERABLES Final Res ult JORGE [address] [place] [address] * Magnesium (01/29/2024 6:20 AM CDT) Magnesium 2.0 1.4 - 2.5 mg/dL JORGE Comment:Testing performed by : [address] [address] Blood 01/29/2024 6:20 AM CDT 01/29/2024 8:23 AM CDT us Notinfile Unknown LAB BLOOD ORDERABLES Final Res ult Performing Organization Address City/[facility] Co de Phone Number JORGE [facility] [email or web address] [address] * Differential, auto (01/29/2024 6:20 AM CDT) Neutrophil abs 5.2 1.5 - 6.5 K/cumm JORGE Comment:Testing performed by : [address] [address] Imm gran abs 0.1 0.0 - 0.1 K/cumm JORGE Comment:Testing performed by : [address] [address] Lymphocyte abs 1.9 0.8 - 3.3 K/cumm JORGE Comment:Testing performed by : [address] [address] Monocyte abs 0.8 0.2 - 0.8 K/cumm JORGE Comment:Testing performed by : [address] [address] Eosinophil abs 0.2 0.0 - 0.5 K/cumm JORGE Comment:Testing performed by : [address] [address] Basophil abs 0.0 0.0 - 0.1 K/cumm JORGE Comment:Testing performed by : [address] [address] Neutrophil pct 63.2 % JORGE Comment: Interpretive Data Percent cell count reference ranges are not reported, since discordance with absolute values may lead to misinterpretation of CBC data. Current Interpretive Data was last revised on 2017. Testing performed by: [address] [address] Imm gran pct 1.2 % JORGE Comment: Interpretive Data Percent cell count reference ranges are not reported, since discordance with absolute values may lead to misinterpretation of CBC data. Current Interpretive Data was last revised on 2017. Testing performed by: [address] [address] Lymphocyte pct 23.4 % [facility] Comment: Interpretive Data Percent cell count reference ranges are not reported, since discordance with absolute values may lead to misinterpretation of CBC data. Current Interpretive Data was last revised on 2017. Testing performed by: [address] [address] Monocyte pct 9.4 % [facility] Comment: Interpretive Data Percent cell count reference ranges are not reported, since discordance with absolute values may lead to misinterpretation of CBC data. Current Interpretive Data was last revised on 2017. Testing performed by: [address] [address] Eosinophil pct 2.3 % [facility] Comment: Interpretive Data Percent cell count reference ranges are not reported, since discordance with absolute values may lead to misinterpretation of CBC data. Current Interpretive Data was last revised on 2017. Testing performed by: [address] [address] Basophil pct 0.5 % [facility] Comment: Interpretive Data Percent cell count reference ranges are not reported, since discordance with absolute values may lead to misinterpretation of CBC data. Current Interpretive Data was last revised on 2017. Testing performed by: [address] [address] Blood 01/29/2024 6:20 AM CDT 01/29/2024 8:23 AM CDT us Notinfile Unknown LAB BLOOD ORDERABLES Final Res ult JORGE EDGE [address] [facility] [place] [address] * (ABNORMAL) CBC with auto differential (01/29/2024 6:20 AM CDT) WBC 8.2 3.8 - 9.9 K/cumm JORGE EDGE Comment:Testing performed by : [address] [address] Hgb 8.5(L) 11.9 - 15.5 g/dL JORGE EDGE Comment:Testing performed by : [address] [address] Hct 26.5(L) 35.6 - 45.5 % JORGE EDGE Comment:Testing performed by : [address] [address] Plt 281 150 - 400 K/cumm JORGE Comment:Testing performed by : [address] [address] MPV 10.6 9.1 - 12.3 fL JORGE EDGE Comment:Testing performed by : [address] [address] RBC 2.86(L) 3.90 - 5.20 M/cumm JORGE EDGE Comment:Testing performed by : [address] [address] MCV 92.7 81.3 - 96.4 fL JORGE EDGE Comment:Testing performed by : [address] [address] MCH 29.7 27.1 - 33.3 pg JORGE EDGE Comment:Testing performed by : [address] [address] MCHC 32.1(L) 32.3 - 35.7 g/dL JORGE EDGE Comment:Testing performed by : [address] [address] RDW CV 14.1 11.1 - 14.9 % JORGE EDGE Comment:Testing performed by : [address] [address] RDW SD 46.3 35.7 - 48.1 fL JORGE EDGE Comment:Testing performed by : [address] [address] NRBC abs 0.00 0.00 - 0.01 K/cumm JORGE EDGE Comment:Testing performed by : [address] [address] Blood 01/29/2024 6:20 AM CDT 01/29/2024 8:23 AM CDT us Notinfile Unknown LAB BLOOD ORDERABLES Final Res ult JORGE [facility] [place] [address] * (ABNORMAL) CBC without differential (01/29/2024 6:20 AM CDT) WBC 8.2 3.8 - 9.9 K/cumm JORGE EDGE Comment:Testing performed by : [address] [address] Hgb 8.5(L) 11.9 - 15.5 g/dL JORGE EDGE Comment:Testing performed by : [address] [address] Hct 26.5(L) 35.6 - 45.5 % JORGE EDGE Comment:Testing performed by : [address] [address] Plt 281 150 - 400 K/cumm JORGE EDGE Comment:Testing performed by : [address] [address] MPV 10.6 9.1 - 12.3 fL JORGE EDGE Comment:Testing performed by : [address] [address] RBC 2.86(L) 3.90 - 5.20 M/cumm JORGE EDGE Comment:Testing performed by : [address] [address] MCV 92.7 81.3 - 96.4 fL JORGE Comment:Testing performed by : [address], [address] MCH 29.7 27.1 - 33.3 pg JORGE EDGE Comment:Testing performed by : [address] [address] MCHC 32.1(L) 32.3 - 35.7 g/dL JORGE Comment:Testing performed by : [address], [address] RDW CV 14.1 11.1 - 14.9 % JORGE Comment:Testing performed by : [address], [address] RDW SD 46.3 35.7 - 48.1 fL JORGE EDGE Comment:Testing performed by : [address], [address] NRBC abs 0.00 0.00 - 0.01 K/cumm JORGE Comment:Testing performed by : [address], [address] Blood 01/29/2024 6:20 AM CDT 01/29/2024 8:23 AM CDT us Notinfile Unknown LAB BLOOD ORDERABLES Final Res ult JORGE [address] [facility] [place] [address] documented in this encounter Visit [...] documented as of this encounter Care Teams Fingerprint Expert Relationship Specialty Start Date End Date Elpidio Serrato MD PCP - General Internal Medicine 06/09/18 documented as of this encounter
--- OUTSIDE RECORDS SUMMARY | 2024-05-20 07:53 | XMS_ITS | Encounter Summary ---
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 Testing performed by: [facility], [address] [place] [address]., [address] Blood 02/01/2024 4:35 AM CDT 02/01/2024 8:14 AM CDT us Notinfile Unknown LAB BLOOD ORDERABLES Final Res ult JORGE [address] [facility] Department [place] [address] * (ABNORMAL) Basic metabolic panel (02/01/2024 4:35 AM CDT) Sodium 140 135 - 145 mmol/L JORGE Comment:Testing performed by : [address] [address] Potassium, pl 4.7 3.3 - 4.9 mmol/L JORGE Comment:Testing performed by : [address], [place]., [address] Chloride 106 97 - 110 mmol/L JORGE Comment:Testing performed by : [address], [place]., [address] CO2 22 22 - 32 mmol/L JORGE Comment:Testing performed by : [address] [address] Anion gap 12 2 - 15 mmol/L JOREG Comment:Testing performed by : [address], [place]., [address] BUN 27(H) 6 - 25 mg/dL JORGE Comment:Testing performed by : [address] [address] Creatinine 1.70(H) 0.60 - 1.10 mg/dL JORGE Comment:Testing performed by : [address] [address] Glucose 132 70 - 199 mg/dL JORGE [...] was last revised 2022. Testing performed by: [address] [address] Calcium 8.8 8.5 - 10.3 mg/dL JORGE Comment:Testing performed by : [address] [address] Blood 02/01/2024 4:35 AM CDT 02/01/2024 8:13 AM CDT us Notinfile Unknown LAB BLOOD ORDERABLES Final Res ult Performing Organization Address [facility] Co de Phone Number [id number] [address] * Magnesium (02/01/2024 4:35 AM CDT) Magnesium 1.9 1.4 - 2.5 mg/dL JORGE Comment:Testing performed by : [facility], [address] [place] [address]., [address] Blood 02/01/2024 4:35 AM CDT 02/01/2024 8:13 AM CDT us Notinfile Unknown LAB BLOOD ORDERABLES Final Res ult Performing Organization Address [facility] de Phone Number [id number] [address] documented in this encounter Visit Diagnoses Not [...] Surveillance for admission to 73. CAPRI Tolbert [facility] 01/21/2024 01/21/2024 02/04/2024 3:05 AM C DT documented as of this encounter Care Teams Optical Glass Wet Inspector Relationship Specialty Start Date End Date Elpidio Serrato MD PCP - General Internal Medicine 06/09/18 documented as of this encounter
--- OUTSIDE RECORDS SUMMARY | 2024-05-20 07:53 | XMS_ITS | Encounter Summary ---
Author Organization [facility] Address [address] [facility] [address] [place] [address] Phone Care Team Providers Care Data Librarian Name Role Phone Elpidio Serrato MD Primary Care Provider [phone] Encounter Details Date Type Department Care Team (Late st Contact Info) Description 01/28/2024 Orders Only [facility] Surgery [address] [facility] Advanced Medicine 8th [place] [address] [place] [address] Stan Treviño MD [address] [facility] [id number] [place] [address] Coronary artery disease involving [place] heart, unspecified vessel or lesion type, unspecified [...] on file 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 CAPRI Tolbert [facility] 01/21/2024 01/21/2024 02/04/2024 3:05 AM C DT documented as of this encounter Care Teams Data Librarian Relationship Specialty Start Date End Date Elpidio Serrato MD PCP - General Internal Medicine 06/09/18 documented as of this encounter
--- OUTSIDE RECORDS SUMMARY | 2024-05-20 07:53 | XMS_ITS | Encounter Summary ---
Author Organization [facility] Address [address] [place] [address] Phone Care Team Providers Care Millwright Apprentice Name Role Phone Elpidio Serrato MD Primary Care Provider [phone] Encounter Details Date Type Department Care Team (Late st Contact Info) Description 02/14/2024 11:30 AM CDT Office Visit [facility] Cardiology [address] [facility] Advanced [facility] 8th [place] [address] [place] [id number] Rater, JAMES Dunlap [address] [facility] [address] [place] [address] Dyspnea on exertion (Primary Dx); [...] on file Legal 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 You can start after you see Columba and PT says it is OK Please call for any questions [phone] Goal Blood Pressure is 130/80 or less, [...] of test: 11/15/2023 Hospital #: [id number] Location: [facility] Interpreted by: Vandana Isaacs MD Continuous Still Operator: Olimpia Brandon RDCS RN: Shelby Jacobo RN Reason for Test: Dyspnea Study quality: Technically good Referring Physician: GAURAV COLLIER MD Contrast Agent: 3.0 ml Optison Administered BASELINE STUDY: Wall Motion Scoring (1=Normal 2=Hypo 3=Akinetic 4=Dyskin./Aneurysm 0=Not visualized) Parasternal Long [place]:MAS=1 BAS=1 MIL=2 ROBERT=2 Parasternal Short [place]:MAS=1 MIS=1 RI=1 MIL=2 MAL=1 MA=1 Apical 4 [...] No MS/ mild MR; No TR; No MN. Diastolic Function: Grade I (impaired relaxation) with nl est filling pressures.Unable to estimate PASP d/t inadequate TR jet. Baseline HR: 77 Baseline BP: 115/57 Conduction Defects: RBBB + LAFB Resting ECG Comments: Oriana Jensen Medications: Lasix, Aspirin, Lipitor, evothyroxine, Metformin, Insulin Meds held: none POST DOBUTAMINE STUDY: Wall Motion Scoring (1=Normal 2=Hypo 3=Akinetic 4=Dyskin./Aneurysm 0=Not visualized) Parasternal Long [place]:MAS=1 BAS=1 MIL=3 ROBERT=3 Parasternal Short [place]:MAS=1 MIS=1 RI=1 MIL=3 MAL=1 MA=1 Apical 4 [...] system. Occluded in the proximal segment with [id number] septal collaterals from the LAD COMPLICATIONS: None. [...] 6 months to establish with a general bottom crane operator. She would like to be seen at the [facility] Medicine. Gaurav Collier, Cardiology Nurse Practitioner documented [...] 02/05/2024 added in this encounter Care Teams Millwright Apprentice Relationship Specialty Start Date End Date Elpidio Serrato MD PCP - General Internal Medicine 06/09/18 documented as of this encounter
--- OUTSIDE RECORDS SUMMARY | 2024-05-20 07:53 | XMS_ITS | Encounter Summary ---
Author Organization [facility] Address [address] [place] [address] Phone Care Team Providers Care Single Ending Machine Operator Name Role Phone Elpidio Serrato MD Primary Care Provider [phone] Reason for Visit * Reason Onset Date Comments PO 02/14/2024 [place] Encounter Details Date Type Department Care Team (Late st Contact Info) Description 02/14/2024 Telephone [facility] Endocrinology Metabolism and Lipid [address] [facility] Advanced Medicine 13th [place] [address] [place] [address] Martha Boyer RMA PO (Solara) [...] on file Legal 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 See Media. documented in this encounter Plan of Treatment Not on file documented as of this encounter Visit Diagnoses Not on filedocumented in this encounter Care Teams Single Ending Machine Operator Relationship Specialty Start Date End Date Elpidio Serrato MD PCP - General Internal Medicine 06/09/18 documented as of this encounter
--- OUTSIDE RECORDS SUMMARY | 2024-05-20 07:53 | XMS_ITS | Encounter Summary ---
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 Testing performed by: [facility], [address] [place] [address], [place]., [address] Blood 02/03/2024 6:01 AM CDT 02/03/2024 8:28 AM CDT us Notinfile Unknown LAB BLOOD ORDERABLES Final Res ult [facility] Department [place] [address] * (ABNORMAL) Basic metabolic panel (02/03/2024 6:01 AM CDT) [facility] Signature Sodium 140 135 - 145 mmol/L JORGE Comment:Testing performed by : [address], [place]., [address] Potassium, pl 4.4 3.3 - 4.9 mmol/L JORGE Comment:Testing performed by : [address], [place]., [address] Chloride 104 97 - 110 mmol/L JORGE Comment:Testing performed by : [address], [place]., [address] CO2 22 22 - 32 mmol/L JORGE Comment:Testing performed by : [address], [place]., [address] Anion gap 14 2 - 15 mmol/L JORGE Comment:Testing performed by : [address] [address] BUN 23 6 - 25 mg/dL JORGE Comment:Testing performed by : [address], [place]., [address] Creatinine 1.40(H) 0.60 - 1.10 mg/dL JORGE Comment:Testing performed by : [address], [place]., [address] Glucose 111 70 - 199 mg/dL JORGE [...] was last revised 2022. Testing performed by: [address], [place]., [address] Calcium 9.3 8.5 - 10.3 mg/dL JORGE Comment:Testing performed by : [address] [address] Blood 02/03/2024 6:01 AM CDT 02/03/2024 8:28 AM CDT us Notinfile Unknown LAB BLOOD ORDERABLES Final Res ult JORGE [address] [facility] Department [place] [address] * Differential, auto (02/03/2024 6:01 AM CDT) Neutrophil abs 5.6 1.5 - 6.5 K/cumm JORGE Comment:Testing performed by : [address] [address] Imm gran abs 0.1 0.0 - 0.1 K/cumm JORGE Comment:Testing performed by : [address] [address] Lymphocyte abs 2.8 0.8 - 3.3 K/cumm JORGE Comment:Testing performed by : [address] [address] Monocyte abs 0.7 0.2 - 0.8 K/cumm JORGE Comment:Testing performed by : [address] [address] Eosinophil abs 0.2 0.0 - 0.5 K/cumm JORGE Comment:Testing performed by : [address] [address] Basophil abs 0.1 0.0 - 0.1 K/cumm JORGE Comment:Testing performed by : [address] [address] Neutrophil pct 60.0 % JORGE Comment: Interpretive Data Percent cell count reference ranges are not reported, since discordance with absolute values may lead to misinterpretation of CBC data. Current Interpretive Data was last revised on 2017. Testing performed by: [address] [address] Imm gran pct 0.9 % [facility] Comment: Interpretive Data Percent cell count reference ranges are not reported, since discordance with absolute values may lead to misinterpretation of CBC data. Current Interpretive Data was last revised on 2017. Testing performed by: [address] [address] Lymphocyte pct 29.4 % [facility] Comment: Interpretive Data Percent cell count reference ranges are not reported, since discordance with absolute values may lead to misinterpretation of CBC data. Current Interpretive Data was last revised on 2017. Testing performed by: [address] [address] Monocyte pct 7.2 % [facility] Comment: Interpretive Data Percent cell count reference ranges are not reported, since discordance with absolute values may lead to misinterpretation of CBC data. Current Interpretive Data was last revised on 2017. Testing performed by: [address] [address] Eosinophil pct 1.9 % [facility] Comment: Interpretive Data Percent cell count reference ranges are not reported, since discordance with absolute values may lead to misinterpretation of CBC data. Current Interpretive Data was last revised on 2017. Testing performed by: [address] [address] Basophil pct 0.6 % [facility] Comment: Interpretive Data Percent cell count reference ranges are not reported, since discordance with absolute values may lead to misinterpretation of CBC data. Current Interpretive Data was last revised on 2017. Testing performed by: [address] [address] Blood 02/03/2024 6:01 AM CDT 02/03/2024 8:28 AM CDT us Notinfile Unknown LAB BLOOD ORDERABLES Final Res ult J[facility]GE [facility] [address] [facility] Department [place] [address] * (ABNORMAL) CBC with auto differential (02/03/2024 6:01 AM CDT) WBC 9.3 3.8 - 9.9 K/cumm JORGE Comment:Testing performed by : [address] [address] Hgb 9.5(L) 11.9 - 15.5 g/dL JORGE Comment:Testing performed by : [address] [address] Hct 29.9(L) 35.6 - 45.5 % JORGE Comment:Testing performed by : [address] [address] Plt 426(H) 150 - 400 K/cumm JORGE Comment:Testing performed by : [address] [address] MPV 10.5 9.1 - 12.3 fL JORGE Comment:Testing performed by : [address] [address] RBC 3.20(L) 3.90 - 5.20 M/cumm JORGE Comment:Testing performed by : [address] [address] MCV 93.4 81.3 - 96.4 fL JORGE Comment:Testing performed by : [address] [address] MCH 29.7 27.1 - 33.3 pg JORGE Comment:Testing performed by : [address] [address] MCHC 31.8(L) 32.3 - 35.7 g/dL JORGE Comment:Testing performed by : [address] [address] RDW CV 14.5 11.1 - 14.9 % JORGE Comment:Testing performed by : [address] [address] RDW SD 49.1(H) 35.7 - 48.1 fL JORGE Comment:Testing performed by : [address] [address] NRBC abs 0.00 0.00 - 0.01 K/cumm JORGE Comment:Testing performed by : [facility] [address] [place] [address], [place]., [address] Blood 02/03/2024 6:01 AM CDT 02/03/2024 8:28 AM CDT us Notinfile Unknown LAB BLOOD ORDERABLES Final Res ult JORGE [address] [facility] Department [place] [address] documented in this encounter Visit Diagnoses Not [...] documented as of this encounter Care Teams Damage Assessor Relationship Specialty Start Date End Date Elpidio Serrato MD PCP - General Internal Medicine 06/09/18 documented as of this encounter
--- OUTSIDE RECORDS SUMMARY | 2024-05-20 07:54 | XMS_ITS | Encounter Summary ---
Author Organization [facility] Address [address] [place] [address] Care Team Providers Care Photo Studio Assistant Name Role Phone Elpidio Serrato MD Primary Care Provider Reason for Visit * Auth/Cert (Routine) Specialty Diagnoses / Procedures Referred By Contac t Referred To Contact Diagnoses Coronary artery disease, unspecified vessel or lesion type, unspecified whether angina present, unspecified whether redding or transplanted heart Coronary artery disease, unspecified vessel or lesion type, unspecified whether angina present, unspecified whether redding or transplanted heart [I25.10] Procedures AK CABG W/ARTERIAL GRAFT THREE ARTERIAL GRAFTS AK NDSC SURG W/VIDEO-ASSISTED HARVEST VEIN CABG 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 x3 OROZCO VEIN 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 Referral ID Status Reason Start Date Expiration Date Visits Re quested Visits Authorized [id number] 1 1 Encounter Details Date Type Department Care Team (Late st Contact Info) Description 01/20/2024 8:25 AM CDT Ancillary Procedure 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 us Diogo Smith MD CV ECHO PROCEDURES Final Result [facility] PROSOLV_CARDIOREPORT_CONS SCIMAGE documented in this encounter Visit Diagnoses Not on filedocumented in this encounter Care Teams Photo Studio Assistant Relationship Specialty Start Date End Date Elpidio Serrato MD PCP - General Internal Medicine 06/09/18 documented as of this encounter
--- OUTSIDE RECORDS SUMMARY | 2024-05-20 07:54 | XMS_ITS | Encounter Summary ---
Author Organization [facility] Address [address] [place] [address] Care Team Providers Care Computer Systems Design Analyst Name Role Phone Elpidio Serrato MD Primary Care Provider [phone] Reason for Visit * Auth/Cert (Routine) Specialty Diagnoses / Procedures Referred By Contac t Referred To Contact Diagnoses Coronary artery disease, unspecified vessel or lesion type, unspecified whether angina present, unspecified whether [place] or transplanted heart Coronary artery disease, unspecified vessel or lesion type, unspecified whether angina present, unspecified whether [place] or transplanted heart [I25.10] Procedures AK CABG W/ARTERIAL GRAFT THREE ARTERIAL GRAFTS AK NDSC SURG W/VIDEO-ASSISTED HARVEST VEIN CABG 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 x3 OROZCO VEIN 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 Referral ID Status Reason Start Date Expiration Date Visits Re quested Visits Authorized [id number] 1 1 Encounter Details Date Type Department Care Team (Late st Contact Info) Description 01/20/2024 8:05 AM CDT Anesthesia Event [facility] Operating Room [address] [place] [address] Diogo Smith MD [address] [place] [address] Chandrakant Saba MD [address] [place] [address] Anesthesia Record Procedure Summary Procedure Name Responsible [...] 01/20/24; 1120; Incision; Leg; Right, Upper, Lower; [facility] SITE 01/20/24 1120 by Ben Hi Wound 01/20/24; 1127; Incision; Leg; Left, Upper, Lower; [facility] SITE 01/20/24 1127 by Ben Hi Wound [...] Location: Pleural; Size: 28 Fr; Drainage System: [place]/nonsuction water seal drainage, Suction; Removal Date: 01/23/24; Removal Time: 1600 01/20/24 1432 by Ben Hi 01/23/24 1600 by Sonia Pineda RN Negative Pressure Wound Therapy 01/20/24; 1544; Anterior; Sternum; 01/26/24; 1514; Therapy completed 01/20/24 1544 by Ben Hi 01/26/24 1514 by Mgea Wharton RN documented in this encounter Social [...] file 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 Gender Identity Female 05/13/2021 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 Sexual Orientation Not on file documented as of this encounter OR Notes * Anesthesia Postprocedure Evaluation - Chandrakant Saba MD - 01/20/2024 4:37 PM CDT Patient: Isabelle Lutz Procedure Summary Date: 01/20/24 Room / Location: [facility] OR POD 3 ROOM 309 / [facility] OR POD 3 Anesthesia Start: 804 Anesthesia Stop: 1636 Procedures: 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 X3 USING OROZCO AND LEFT & RIGHT SAPHENOUS ENDOVEIN HARVEST (Chest) 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 (Thigh) LEFT ATRIAL APPENDAGE EXCLUSION USING 40MM ATRICLIP FLEXV (Chest) ORIF OF STERNUM USING STERNALOCK 360 (Chest) Diagnosis: Coronary artery disease, unspecified vessel or lesion type, unspecified whether angina present, unspecified whether [place] or transplanted heart (Coronary artery disease, unspecified vessel or lesion type, unspecified whether angina present, unspecified whether [place] or transplanted heart [I25.10]) Surgeons: Stan Treviño [...] code: JULIANO placement and diagnostic exam, non-congenital (457[address]) ICD code(s) for medical necessity: R93.1 - [...] inferior: normal 16- Apical septal: normal 17- Kinney: normal Valves: Aortic Valve: Annulus: normal Leaflet [...] and Planning Preoperative Evaluation Record Evaluation type/location: [facility] Planned procedure site: [facility] (Pods 2//[facility]) Date: 01/17/24 Anesthesia Evaluation Isabelle Lutz is a 73 y.o. female 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 x3 OROZCO VEIN (Chest) 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 (Thigh) Pre-Op Diagnosis Codes: * Coronary artery disease, unspecified vessel or lesion type, unspecified whether angina present, unspecified whether [place] or transplanted heart [I25.10] HISTORY HPI 73 [...] Other arrhythmia (RBBB + LAFB) Pertinent negatives: [place] ; CABG ; systolic/diastolic dysfunction w/o CHF [...] Other + Diabetes mellitus ([employer]. Managed by internet marketing strategist.) - Diabetes type 2. Outpatient insulin use:current. [...] neck. Got some SOB when walking from unit secy to CPAP. Starts with SOB then the [...] neck. Got some SOB when walking from unit secy to CPAP. Starts with SOB then the [...] artery disease 12/18/2023 Coronary artery disease involving [place] heart 12/12/2023 Encounter for preprocedural cardiovascular examination 12/12/2023 ROSE (dyspnea on exertion) 11/19/2023 Stable angina (HCC) 11/16/2023 Hyperphosphatemia 11/15/2023 Abnormal stress echocardiogram 11/15/2023 Congestive heart failure (CMS/HCC) (HCC) 11/12/2023 Age-related osteoporosis without current pathological fracture 04/29/2023 Chronic kidney disease (CKD) stage G3b/A1, moderately decreased glomerular filtration rate (GFR) between 30-44 mL/min/1.73 square meter and albuminuria creatinine ratio less than 30 mg/g ([facility]) 12/25/2021 Vitamin D deficiency 04/01/2019 Clavicle enlargement [...] CATARACT EXTRACTION Right 06/14/2022 CE/IOL + goniotomy AK APPENDECTOMY unkown dates per pt AK DELIVERY ONLY Section - in 1972 and 1975 (Added by TW Conv) AK TENDON SHEATH INCISION Hand Incision Tendon Sheath [...] TR jet. Stress test(s): N/A Cardiac catheterization(s): [facility] - 11/25/23 DIAGNOSTIC IMPRESSION: Severe multivessel coronary [...] Audit 01/20/24 0805 100 mL/hr Rate Verify Chanrdakant Saba MD edited Events Date Time Event [...] LINE PLACEMENT Routine 01/20/2024 12:44 PM CDT AK AN PROCEDURE PLACEHOLDER Routine 01/20/2024 12:17 PM [...] MD ANESTHESIA ORDERABLES Final Res ult * AK AN PROCEDURE PLACEHOLDER (01/20/2024 12:17 PM CDT) [...] code: JULIANO placement and diagnostic exam, non-congenital (66805) ICD code(s) for medical necessity: R93.1 - [...] inferior: normal 16- Apical septal: normal 17- Kinney: normal Valves: Aortic Valve: Annulus: normal Leaflet [...] 01/20/2024 documented in this encounter Care Teams Computer Systems Design Analyst Relationship Specialty Start Date End Date Elpidio Serrato MD PCP - General Internal Medicine 06/09/18 documented as of this encounter
--- OUTSIDE RECORDS SUMMARY | 2024-05-20 07:54 | XMS_ITS | Encounter Summary ---
Author Organization [facility] Healthcare Address [address] [place] [address] Care Team Providers Care Mime Artist Name Role Phone Elpidio Serrato MD Primary Care Provider [phone] Reason for Visit * Auth/Cert (Routine) Specialty Diagnoses / Procedures Referred By Contac t Referred To Contact Diagnoses Coronary artery disease, unspecified vessel or lesion type, unspecified whether angina present, unspecified whether [place] or transplanted heart Coronary artery disease, unspecified vessel or lesion type, unspecified whether angina present, unspecified whether [place] or transplanted heart [I25.10] Procedures FL CABG W/ARTERIAL GRAFT THREE ARTERIAL GRAFTS FL NDSC SURG W/VIDEO-ASSISTED HARVEST VEIN CABG 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 x3 AGOSTO VEIN 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 Referral ID Status Reason Start Date Expiration Date Visits Re quested Visits Authorized [id number] 1 1 Encounter Details Date Type Department Care Team (Latest Contact Info) Description 01/20/2024 6:04 AM CDT - 01/28/2024 1:37 PM CDT Hospital Encounter [facility] [address] [place] [address] Stan Treviño MD [id number] [place] [address] S/P CABG x 3 (Primary Dx); Coronary artery disease of [place] artery of [place] heart with stable angina pectoris (HCC); CAD, [...] file Legal Sex Female 3:59 AM RN TRANSITIONAL Gender Identity Female 05/13/2021 4:21 PM RN TRANSITIONAL Sexual Orientation Not on file documented as [...] Care Physician at Discharge: Elpidio Serrato MD [phone] Admission Date: 01/20/2024 Discharge Date: 01/28/2024 Admission Location: [facility] Primary Discharge Diagnosis: 1. On pump [...] Active Problems: DM2 (diabetes mellitus, type 2) ([facility]) Obesity ABLA (acute blood loss anemia) AF (paroxysmal atrial fibrillation) ([facility]/HCC) ([facility]) Resolved Problems: Leucocytosis Thrombocytopenia ([facility]) DETAILS OF HOSPITAL STAY Presenting Problem/History of Present Illness: 73 y.o. yo female w/ PMHx of HTN, HLD< CAD, mild MR, anemia, CKD, DM type II ( Hgb A1c 5.9), hypothyroidism, and chronic knee pain. He was found to have multivessel diease on [facility] and is being seenby CTS for [...] prior to transfer to the Rehab facility ([facility]) Active Issues Requiring Follow-up: Continue PT/OT at the rehab center until able to discharge to home. Will need to call for appt with Dr Treviño if not already scheduled - office number is [phone]. Operative Procedures Performed: Procedure(s): CORONARY ARTERY BYPASS [...] Your Medications These medications were sent to [facility] Portal to Registered [facility] Sites [facility] [id number] empagliflozin 10 mg tablet insulin lispro 100 [...] Comment s Discharge to an Rehab facility [place], [place]) documented in this encounter Progress Notes * Christy Limon RN - 01/28/2024 12:58 PM CDT 01/22/24 1312 Discharge Summary Discharge Disposition Acute Rehab Specify Facility [facility] Facility Contact Number [phone] Bowie Discharge Records Transfer Form Completed;Chart Copied Recommended Discharge Level of Care Acute Rehab Actual Discharge Level of Care Acute Rehab Does Actual Level of Care Match Care Team Recommendation? Yes Post Acute Care Plan Post Acute Care Facility Yes Referral Status Accepted Accepted Post Acute Care Location and Contact [facility] Accepted Post Acute Care Discharge Additional [...] not assigned to this patient, please call [phone]. 01/27/24 7007 General Session Type Treatment OT Received On [...] none Interval History: Working on transfer to [facility], still with hypoglycemic events, reduced insulins again. Plan for d/c tomorrow to [facility], blood sugars should be stable at that point OBJECTIVE Current Facility-Administered Medications: acetaminophen (TYLENOL) tablet 1,000 mg, 1,000 mg, feeding tube, Q6H [facility], Cinthia Stokes PA, 1,000 mg at 01/27/24 1135 [START ON 01/31/2024] amiodarone (PACERONE) tablet 200 mg, 200 mg, oral, BID, Marisela Russell CLERICAL ADMINISTRATIVE ASSISTANT [START ON 02/03/2024] amiodarone (PACERONE) tablet 200 [...] 1 drop, left eye, BID, Eloisa Freeman, CLERICAL ADMINISTRATIVE ASSISTANT, 1 drop at 01/27/24 1042 cholecalciferol (VITAMIN [...] hours: ASSESSMENT/PLAN AF (paroxysmal atrial fibrillation) (CMS/HCC) ([facility]) Assessment & Plan Short episode of [...] bariatric equipment DM2 (diabetes mellitus, type 2) ([facility]) Assessment & Plan - Hemoglobin A1c [...] 04/29/2023 Cataract CHF (congestive heart failure) (CMS/HCC) ([facility]) Clavicle enlargement 06/16/2018 Will image to [...] 12/09/2017 Type 2 diabetes mellitus with hyperlipidemia ([facility]) 12/07/2016 Last A1C 5.9%, without complication Vitamin D deficiency 04/01/2019 Past Surgical History: Procedure Laterality Date CATARACT EXTRACTION Right 06/14/2022 CE/IOL + goniotomy FL APPENDECTOMY unkown dates per pt [place] DELIVERY ONLY Section - in 1972 and 1975 (Added by TW Conv) FL TENDON SHEATH INCISION Hand Incision Tendon Sheath [...] has been improving since surgery. She is [id number]% of her meals. She is no longer drinking the Glucerna shakes. Order cancelled. Last BM 01/26. Awaiting rehab bed. [address] [phone] * Eloisa Freeman NP - 01/26/2024 1:26 PM CDT Cardiac Surgery Daily Progress 01/19: s/p CABG x3 SUBJECTIVE Chief complaint: none Interval History: hypoglycemic x 2 - decreased the lantus today. Remains in [facility]. Planning for TRISL at [place] OBJECTIVE Current Facility-Administered Medications: acetaminophen (TYLENOL) tablet 1,000 mg, 1,000 mg, feeding tube, Q6H [facility], Cinthia Stokes PA, 1,000 mg at 01/26/24 0434 [START ON 01/31/2024] amiodarone (PACERONE) tablet 200 mg, 200 mg, oral, BID, Marisela Russell, CLERICAL ADMINISTRATIVE ASSISTANT [START ON 02/03/2024] amiodarone (PACERONE) tablet 200 mg, 200 mg, oral, Daily, Marisela Russell, CLERICAL ADMINISTRATIVE ASSISTANT amiodarone (PACERONE) tablet 400 mg, 400 mg, oral, TID, Marisela Russell, CLERICAL ADMINISTRATIVE ASSISTANT, 400 mg at 01/26/24 0827 [START ON 01/28/2024] amiodarone (PACERONE) tablet 400 mg, 400 mg, oral, BID, Marisela Russell, CLERICAL ADMINISTRATIVE ASSISTANT aspirin enteric coated tablet 81 mg, 81 [...] unit/mL injection 24 Units, 24 Units, subcutaneous, Nightly,Elosia Freeman NP insulin lispro (HumaLOG, ADMELOG) 100 [...] bariatric equipment DM2 (diabetes mellitus, type 2) ([facility]) Assessment & Plan - Hemoglobin A1c [...] treatment team and contact the PT or COMPOSITE BOND TECHNICIAN currently assigned to this patient. If a physical therapy clinician is not assigned to this patient, please call [phone]. Multi-Disciplinary Problems (from Physical Therapy) Active Problems [...] Calculation (min) 23 min * Marisela Russell CLERICAL ADMINISTRATIVE ASSISTANT - 01/25/2024 12:52 PM CDT Cardiac Surgery [...] mg, 200 mg, oral, BID, Marisela Russell, CLERICAL ADMINISTRATIVE ASSISTANT [START ON 02/03/2024] amiodarone (PACERONE) tablet 200 mg, 200 mg, oral, Daily, Marisela Russell, JAMES amiodarone (PACERONE) tablet 400 mg, 400 mg, oral, TID, Marisela Russell, CLERICAL ADMINISTRATIVE ASSISTANT [START ON 01/28/2024] amiodarone (PACERONE) tablet 400 [...] mg, 250 mg, oral, TID with meals, Bir Lindo NP, 250 mg at 01/25/24 1236 [...] 199 mg/dL ASSESSMENT/PLAN AF (paroxysmal atrial fibrillation) ([facility]/HCC) ([facility]) Assessment & Plan Short episode of [...] bariatric equipment DM2 (diabetes mellitus, type 2) ([facility]) Assessment & Plan - Hemoglobin A1c [...] 1,000 mg, 1,000 mg, feeding tube, Q6H [facility], Cinthia Stokes PA, 1,000 mg at 01/24/24 [...] 88 mcg, feeding tube, Daily - 0600, Cintiha Stokes PA, 88 mcg at 01/24/24 0527 [...] caloric restriction DM2 (diabetes mellitus, type 2) ([facility]) Assessment & Plan - Hemoglobin A1c [...] treatment team and contact the PT or COMPOSITE BOND TECHNICIAN currently assigned to this patient. If a physical therapy clinician is not assigned to this patient, please call [phone]. 01/24/24 1001 PT Last Visit Session Type [...] independence with functional mobility. * Nii Garces, CLERICAL ADMINISTRATIVE ASSISTANT - 01/23/2024 4:46 PM CDT Cardiac Surgery [...] not assigned to this patient, please call [phone]. 01/23/24 0910 General Session Type Treatment OT [...] End Date End [facility] 02/04/24 -- Goal Details: Patient [...] 17 g, 17 g, oral, Daily, Cinthia tSokes PA, 17 g at 01/22/24 0940 prochlorperazine [...] treatment team and contact the PT or COMPOSITE BOND TECHNICIAN currently assigned to this patient. If a physical therapy clinician is not assigned to this patient, please call [phone]. Multi-Disciplinary Problems (from Physical Therapy) Active Problems [...] better Prior Function Prior Function Level of Walker: Independent with ADLs, Independent functional transfers, Independent [...] not assigned to this patient, please call [phone]. 01/21/24 0800 General Chart Reviewed Yes Session [...] using SPC intermittently Prior Function Level of Walker Independent with ADLs;Independent functional transfers;Independent with ambulation;Independent with homemaking with ambulation Lives With Son Receives Help From Family (Son industrial equipment wirer but is limited on how much physical [...] Cognitive Tests Cognitive Tests No (Got senior living through the [facility] and patient declined completing [...] Care Post-Procedure Diagnose(s): Coronary artery disease of [place] artery of [place] heart with stable angina pectoris (HCC) Surgical [...] Goals of Care: Full Code Cinthia Stokes, [facility], PA-C Critical Care Performed by: Cinthia Stokes [...] plan with the ICU team and other medical/it architecture consultant staff, making frequent assessments and decisions [...] Care Post-Procedure Diagnose(s): Coronary artery disease of [place] artery of [place] heart with stable angina pectoris (HCC) Surgical ICU Daily Progress Team: 8200 Blue 2 PM Subjective Isabelle Lutz is a 73 y.o. female admitted on 01/20/2024 6:04 AM with chief complaint of CAD. PMH: CAD, PVD, CKD, HTN, HLD, T2DM (insulin dependent) Abbreviated Hospital Course: 01/19: s/p CABG x3, admitted to 8200 intubated, on dobutamine. Extubated overnight. Interval History: - Extubated to [place] ~2130 - Dobutamine continued at 2.5, per [...] a-line (01/19), R axillary a-line (01/19), RIJ Cordis/Wideman (01/19), PIV x2 Goals of care: Full [...] plan with the ICU team and other medical/it architecture consultant staff, making frequent assessments and decisions [...] Diagnosis Date Cataract CHF (congestive heart failure) ([facility]/HCC) (HCC) Coronary artery disease Diabetes mellitus (HCC) [...] CATARACT EXTRACTION Right 06/14/2022 CE/IOL + goniotomy [place] APPENDECTOMY unkown dates per pt [place] DELIVERY ONLY Section - in 1972 and 1975 (Added by TW Conv) FL TENDON SHEATH INCISION Hand Incision Tendon Sheath [...] AM Result Value Ref Range Product code X9602T17 Unit Number [id number] Product Blood Type APOS Dispense Status RETURNED Product code H3721S61 Unit Number [id number] Product Blood Type APOS Dispense Status RETURNED Product code V3332L47 Unit Number [id number] Product Blood Type APOS Dispense Status RETURNED Product code X2540Z63 Unit Number [id number] Product Blood Type APOS Dispense Status RETURNED [...] AM Result Value Ref Range Product code C4673V69 Unit Number [id number] Product Blood Type APOS Dispense Status RETURNED Product code A0415S67 Unit Number [id number] Product Blood Type APOS Dispense Status RETURNED Product code A1030X14 Unit Number [id number] Product Blood Type APOS Dispense Status RETURNED Product code L8035H32 Unit Number [id number] Product Blood Type APOS Dispense Status RETURNED [...] plan with the ICU team and other medical/it architecture consultant staff, making frequent assessments and decisions [...] and Planning Preoperative Evaluation Record Evaluation type/location: [facility] Planned procedure site: [facility] (Pods 2/[facility]) Date: 01/17/24 Anesthesia Evaluation Isabelle Lutz is a 73 y.o. female 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 x3 AGOSTO VEIN (Chest) 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 (Thigh) Pre-Op Diagnosis Codes: * Coronary artery disease, unspecified vessel or lesion type, unspecified whether angina present, unspecified whether [place] or transplanted heart [I25.10] HISTORY HPI 73 [...] Other arrhythmia (RBBB + LAFB) Pertinent negatives: RI ; CABG ; systolic/diastolic dysfunction w/o CHF [...] Other + Diabetes mellitus ([employer]. 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 Outpatient insulin use:current. [...] neck. Got some SOB when walking from home health care social worker to CPAP. Starts with SOB then the [...] neck. Got some SOB when walking from home health care social worker to CPAP. Starts with SOB then the [...] artery disease 12/18/2023 Coronary artery disease involving [place] heart 12/12/2023 Encounter for preprocedural cardiovascular examination 12/12/2023 ROSE (dyspnea on exertion) 11/19/2023 Stable angina (HCC) 11/16/2023 Hyperphosphatemia 11/15/2023 Abnormal stress echocardiogram 11/15/2023 Congestive heart failure (CMS/HCC) (HCC) 11/12/2023 Age-related osteoporosis without current pathological fracture 04/29/2023 Chronic kidney disease (CKD) stage G3b/A1, moderately decreased glomerular filtration rate (GFR) between 30-44 mL/min/1.73 square meter and albuminuria creatinine ratio less than 30 mg/g ([facility]) 12/25/2021 Vitamin D deficiency 04/01/2019 Clavicle [...] CATARACT EXTRACTION Right 06/14/2022 CE/IOL + goniotomy FL APPENDECTOMY unkown dates per pt [place] DELIVERY ONLY Section - in 1972 and 1975 (Added by TW Conv) FL TENDON SHEATH INCISION Hand Incision Tendon Sheath [...] No MS/ mild MR; No TR; No FL. Diastolic Function: Grade I (impaired relaxation) with nl est filling pressures.Unable to estimate PASP d/t inadequate TR jet. Stress test(s): N/A Cardiac catheterization(s): [facility] - 11/25/23 DIAGNOSTIC IMPRESSION: Severe multivessel [...] Informed consent: Risks, benefits, alternatives discussed and patient/lead customer service representative/guardian agrees and accepts. Patient's stated name/ [...] Maneuver [x] Sutures secured immediately after removal [][place] sutures removed [] No sutures present Instruction [...] Informed consent: Risks, benefits, alternatives discussed and patient/lead customer service representative/guardian agrees and accepts. Patient's stated name/ [...] [] Sutures secured immediately after removal [] [place] sutures removed [] No sutures present Instruction [...] Lutz, 73 y.o. female (: 1950) Room: [place] [address] [address] ( ) LOS: 2 Consult Question: diabetes [...] reliability: CKD, anemia Managed by PMD or Latex Dipper Dr. Bell Hx of DKA/HHS/Hospitalizations for hypoglycemia: [...] fracture 04/29/2023 Cataract CHF (congestive heart failure) ([facility]/HCC) ([facility]) Clavicle enlargement 06/16/2018 Will image to determine etiology. Coronary artery disease Coronary artery disease due to calcified coronary lesion 01/20/2024 Diabetes mellitus (HCC) Diabetic neuropathy ([facility]) 01/21/2024 Diabetic retinopathy ([facility]) Glaucoma Hypertension Hypothyroidism 11/13/2014 Knee pain [...] CATARACT EXTRACTION Right 06/14/2022 CE/IOL + goniotomy FL APPENDECTOMY unkown dates per pt [place] DELIVERY ONLY Section - in 1972 and 1975 (Added by TW Conv) FL TENDON SHEATH INCISION Hand Incision Tendon Sheath [...] & Lipid Research Contact Info: New Consults: [phone]) General Endocrine (Non-Diabetes): [phone] (Check 'Treatment Team' assignment for Diabetes 1 vs 2 vs 3) Diabetes 1: Diabetes Fellow: [phone] Diabetes 2: Vanita Ware, CLERICAL ADMINISTRATIVE ASSISTANT: [phone] Diabetes 3: See Treatment Team Provider (or [...] Lutz, 73 y.o. female (: 1950) Room: [place] [address] ( ) LOS: 1 Consult Question: diabetes [...] reliability: CKD, anemia Managed by PMD or Latex Dipper Dr. Bell Hx of DKA/HHS/Hospitalizations for hypoglycemia: [...] CATARACT EXTRACTION Right 06/14/2022 CE/IOL + goniotomy FL APPENDECTOMY unkown dates per pt [place] DELIVERY ONLY Section - in 1972 and 1975 (Added by TW Conv) FL TENDON SHEATH INCISION Hand Incision Tendon Sheath [...] Center, we will request an outpatient appointment. ([facility] Scheduling: ) All recommendations preliminary until attending attestation. Jennyfer Gaffney MD Clinical Fellow Endocrinology, Metabolism, & Lipid Research Contact Info: New Consults: [phone]) General Endocrine (Non-Diabetes): [phone] (Check 'Treatment Team' assignment for Diabetes 1 vs 2 vs 3) Diabetes 1: Diabetes Fellow: [phone] Diabetes 2: Vanita Ware, CLERICAL ADMINISTRATIVE ASSISTANT: [phone] Diabetes 3: See Treatment Team Provider (or [...] PM CDT Report called to Tracy at [facility]. PIVs and tele removed. Discharge packet and education reviewed with patient and family at bedside. All questions answered. Patient ready for discharge. documented in this encounter Miscellaneous Notes * Consults, Subsequent - Vanita Ware NP - 01/28/2024 12:35 PM CDT Endocrinology & Diabetes Inpatient Subsequent Consult Note Patient: Isabelle Lutz, 73 y.o. female (: 1950) Room: [place] [address] [address] ( ) LOS: 8 Isabelle Lutz is [...] yearly or sooner as indicated by your medical program specialist Pending results for primary service or primary care physician to follow up on: None at time of discharge Follow Up Plan: [facility] Endocrinology Appointment date: Follow up with Dr. Bell on 03/02/24 at 11:40 AM as scheduled Location: [facility]: [address] [place] [address],[address], [place] [address] Endocrinology clinic number: [phone] -- Vanita Ware NP Endocrinology, Metabolism, & Lipid Research Contact Info: New Endocrinology Diabetes Consults: [phone] General Endocrine (Non-Diabetes): [phone] Treatment Teams: [facility] Endocrinology Diabetes 1: Fellow + Attending [facility] Endocrinology Diabetes 2: Vanita Ware NP at [phone] [facility] Endocrinology Diabetes 3: Marcia Irvin NP at [phone] [facility] Endocrinology Diabetes 4: Jacki Patel NP (/) at [phone] or Leeanne Lincoln NP (//) at [phone] Diabetes After-Hours & Weekends: Diabetes Fellow [phone] or [phone] * Plan of Care - Katharine Finney [...] planning, remain free from falls and injury Coffee Host Patient Centered Goal for Treatment: safe discharge to home Summary: VSS, pain management plan followed, I&Os monitored, discharge education and planning complete, pt remained free from falls and injury. * Summary of Treatment Recommendations Non-Billable - Vanita Ware CLERICAL ADMINISTRATIVE ASSISTANT - 01/28/2024 8:56 AM CDT Diabetes Service Discharge/Sign Off Recommendations Type of DM: Type 2 Diabetes Mellitus, Controlled, complicated by post op stress and steroid use Diagnosis: Coronary artery disease, unspecified vessel or lesion type, unspecified whether angina present, unspecified whether [place] or transplanted heart [I25.10] Coronary artery disease [...] yearly or sooner as indicated by your medical program specialist Pending results for primary service or primary care physician to follow up on: None at time of discharge Follow Up Plan: [facility] Endocrinology Appointment date: Follow up with Dr. Bell on 03/02/24 at 11:40 AM as scheduled Location: [facility]: [address] [place] [address],[address], [place] [address] Endocrinology clinic number: [phone] * Plan of Care - Carmita Eden RN - 01/27/2024 10:23 PM CDT Goals: Clinical Goals for the Shift: hemodynamically stable, promote comfort and sleep, labs will trend toward normal values, pt will not fall Coffee Host Patient Centered Goal for Treatment: safe discharge [...] managment, remain free from falls and injury Coffee Host Patient Centered Goal for Treatment: safe discharge to home Summary: VSS, pain management plan followed, pt remained free from falls and injury. * Consults, Subsequent - Vanita Ware NP - 01/27/2024 12:32 PM CDT Endocrinology & Diabetes Inpatient Subsequent Consult Note Patient: Isabelle Lutz, 73 y.o. female (: 1950) Room: [place] [address] [address] ( ) LOS: 7 Isabelle Lutz is [...] Research Contact Info: New Endocrinology Diabetes Consults: [phone] General Endocrine (Non-Diabetes): [phone] Treatment Teams: [facility] Endocrinology Diabetes 1: Fellow + Attending [facility] Endocrinology Diabetes 2: Vanita Ware NP at [phone] [facility] Endocrinology Diabetes 3: Macria Irvin NP at [phone] [facility] Endocrinology Diabetes 4: Jacki Patel NP (/) at [phone] or Leeanne Lincoln NP (//) at [phone] Diabetes After-Hours & Weekends: Diabetes Fellow [phone] or [phone] * Plan of Care - Carmita Eden RN - 01/26/2024 10:48 PM CDT Problem: Respiratory Goal: Achieves optimal ventilation and oxygenation Flowsheets (Taken 01/26/2024 7460) Achieves optimal ventilation and oxygenation: Assess for [...] Goal: Maintains hematologic stability Flowsheets (Taken 01/26/2024 2249) Maintains Hematologic Stability: Assess for signs and symptoms of bleeding or hemorrhage Monitor labs Administer supportive blood products/factors as ordered and appropriate Goals: Clinical Goals for the Shift: hemodynamically stable, promote comfort and sleep, labs will trend toward normal values, pt will not fall Half-Way Patient Centered Goal for Treatment: safe discharge [...] Lutz, 73 y.o. female (: 1950) Room: [place] [address] ( ) LOS: 6 Isabelle Lutz is [...] reliability: CKD, anemia Managed by PMD or Latex Dipper Dr. Bell Hx of DKA/HHS/Hospitalizations for hypoglycemia: [...] toward normal values, pt will not fall Coffee Host Patient Centered Goal for Treatment: safe discharge [...] Lutz, 73 y.o. female (: 1950) Room: [place] [id number] ( ) LOS: 5 Isabelle Lutz is [...] reliability: CKD, anemia Managed by PMD or Latex Dipper Dr. Bell Hx of DKA/HHS/Hospitalizations for hypoglycemia: [...] comfort and safety, monitor labs, sleep hygiene Coffee Host Patient Centered Goal for Treatment: Return to [...] Associated Problem(s): DM2 (diabetes mellitus, type 2) ([facility]) - Hemoglobin A1c 5.9 % on admission - consistent carb diet - continue basal bolus SSI with post prandial coverage Endocrine following. Continues to have labile BS- again dropped to 73, have adjusted insulins Holding her discharge to [facility] today due to hypoglycemic episodes, plan for d/c tomorrow if bed available * Consults, Subsequent - Leeanne Lincoln NP - 01/24/2024 11:38 AM CDT Endocrinology & Diabetes Inpatient Subsequent Consult Note Patient: Isabelle Lutz, 73 y.o. female (: 1950) Room: [place] [address] ( ) LOS: 4 Isabelle Lutz is [...] Research Contact Info: New Endocrinology Diabetes Consults: [phone] General Endocrine (Non-Diabetes): [phone] Treatment Teams: [facility] Endocrinology Diabetes 1: Fellow + Attending [facility] Endocrinology Diabetes 2: Vanita Ware NP at [phone] [facility] Endocrinology Diabetes 3: Marcia Irvin NP at [phone] [facility] Endocrinology Diabetes 4: Jacki Patel NP (/) at [phone] or Leeanne Lincoln NP (//) at [phone] Diabetes After-Hours & Weekends: Diabetes Fellow [phone] or [phone] * Plan of Care - Sonia Pineda [...] control, bs management, maintain comfort and safety Half-Way Patient Centered Goal for Treatment: Return to home Summary: VSS, had multiple BMs, pain controlled with current regimen. * Plan of Eduard Hoffmann - 01/23/2024 6:18 PM CDT Goals: Clinical Goals for the Shift: VSS, pain control, safety throughout shift Coffee Host Patient Centered Goal for Treatment: Return to [...] was found to have multivessel diease on [facility] and is being seenby CTS for [...] Lutz, 73 y.o. female (: 1950) Room: [id number] ( ) LOS: 3 Isabelle Lutz is [...] Research Contact Info: New Endocrinology Diabetes Consults: [phone] General Endocrine (Non-Diabetes): [phone] Treatment Teams: [facility] Endocrinology Diabetes 1: Fellow + Attending [facility] Endocrinology Diabetes 2: Vanita Ware NP at [phone] [facility] Endocrinology Diabetes 3: Marcia Irvin NP at [phone] [facility] Endocrinology Diabetes 4: Jacki Patel NP (/) at [phone] or Leeanne Lincoln NP (//) at [phone] Diabetes After-Hours & Weekends: Diabetes Fellow [phone] or [phone] * Plan of Care - Eduard Berger - 01/22/2024 5:28 PM CDT Goals: Clinical Goals for the Shift: VSS, Pain Control, Free from falls and injury, have tubes and wires removed when possible. Coffee Host Patient Centered Goal for Treatment: D/c home [...] is interested in IRF - discussed choices. Product Safety Head noted patient has been recommended for Inpatient Rehab by PT/OT. Product Safety Head proactively initiated a referral to [facility] preferred Inpatient Rehab Facility - [facility]. Product Safety Head met with the patient/family at bedside to discuss recommendations by therapy and to work on a potential discharge disposition plan. Product Safety Head provided education to patient/family on the rehabilitation process. Patient reported he/she was interested in placement for rehabilitation. manager developmental provided a list of additional potential Inpatient Rehab Facility choices to patient and family. Patient and family selected the following choices (preference order): [facility] location manager developmental sent out additional referrals via [facility]. CM awaiting acceptance from an Inpatient RehabFacility and will continue to work on discharge planning with patient and family. Primary Source of Transportation: Does the patient need discharge transport arranged?: Yes (to be determined EMS vs Family) Has discharge transport been arranged?: No (01/22/241311) Health Insurance Coverage: Medicare [facility] Federal Prescription Coverage: yes Pharmacy: [facility] - LYNNE Clark - [facility] AT Portal to Registered [facility] [place] [address] [facility]/pharmacy [address] [place] [address] [address] [address] Primary Care Provider: Elpidio Serrato MD Prior [...] Collaboration with Patient, Provider, Direct Care Nurse, Grief Counsellor, and other members of theHealth Care Team to assure needed interventions completed. 2. Return patient to optimal level of self-care post discharge. 3. Product Safety Head will follow for Discharge Planning - interventions as needed 4. Anticipated level of care at discharge 5. Planned Discharge Disposition Christy Limon RN * Plan of Care - Luis Dos Santos RN - 01/22/2024 6:46 AM CDT Goals: Clinical Goals for the Shift: VSS, Pain Control, Free from falls and injury, have tubes and wires removed when possible. Half-Way Patient Centered Goal for Treatment: D/c home [...] from falls Outcome: Progressing * Plan of Tangeal - Rose Marie Crabtree RN - 01/21/2024 [...] Admit Date: 01/20/2024 SURGEON Stan Treviño MD RN SURGERY Jeff Alaniz MD ANESTHESIA Diogo Smith MD [...] MD - Fellow Anesthesiologist: Diogo Smith MD Strategic Planning Director: Chandrakant Saba MD Siebel Architect: Gerald Guzman CCP; Jason Kapoor CCP Supervisor Pairing And Inspecting: Ben Hi Supervisor Pairing And Inspecting Relief: Glenna Lambert RN Scrub Relief: Glenna Lambert RN; Germaine Watt ST Scrub: Emmie Ware RN CUSTOMER ACCOUNT EXECUTIVE: Rachelle Rivas RN; Gloria Gannon CRNFA DATE OF SURGERY : 01/20/2024 Preoperative Diagnosis: Pre-op Diagnosis * Coronary artery disease, unspecified vessel or lesion type, unspecified whether angina present, unspecified whether [place] or transplanted heart [I25.10] Postoperative Diagnosis: Post-op Diagnosis * Coronary artery disease, unspecified vessel or lesion type, unspecified whether angina present, unspecified whether [place] or transplanted heart [I25.10] Procedure(s): Procedure(s) (LRB): [...] Implant Name Type Inv. Item Serial No. Insurance Billing Specialist Lot No. LRB No. Used Action 3D Forms Suture [place] Knot Pre Loaded Fastener Device Micro Titanium 0 48842 - S0 - [id number] 3D Forms Suture [place] Cor Knot Pre Loaded Fastener Device Micro Titanium 0 04090 0 MiniLuxe [id number] N/A 1 Implanted 3D Forms Suture [place] Cor Knot Pre Loaded Fastener Device Micro Titanium 0 95293 - S0 - [id number] 3D Forms Suture [place] Cor Knot Pre Loaded Fastener Device Micro Titanium 0 33879 0 MiniLuxe [id number] N/A 1 Implanted 3D Forms Suture [place] Cor Knot Pre Loaded Fastener Device Micro Titanium 0 53490 - S0 - [id number] 3D Forms Suture [place] Cor Knot Pre Loaded Fastener Device Micro Titanium 0 25957 0 MiniLuxe [id number] N/A 1 Implanted 3D Forms Suture [place] Cor Knot Pre Loaded Fastener Device Micro Titanium 0 93693 - S0 - [id number] 3D Forms Suture [place] Cor Knot Pre Loaded Fastener Device Micro Titanium 0 31155 0 MiniLuxe [id number] N/A 1 Implanted ATRICURE Device Left Atrial Appendage Malleable Shaft 180 Degree Rotation White Atriclip Flex V 40mm Flexv40 [id number] - [id number] ATRICURE Device Left Atrial Appendage Malleable Shaft 180 Degree Rotation White Atriclip Flex V 40mm Flexv40 ACHV40 Atricure [id number] N/A 1 Implanted [employer] SternaLock 360 Sternal Closure 74-0004 - [id number] [employer] [id number] Sternal Closure 74-0004 [employer] [id number] N/A 1 Implanted [employer] Sternalock Hernan 2.4mm 14mm Self Drill Lock Sternum Cancellous 73-2414 - [id number] [employer] Sternalock Hernan 2.4mm 14mm Self Drill Lock Sternum Cancellous 73-2414 [employer] N/A 12 Implanted [employer] Sternalock Hernan 2.4mm 16mm Self Drill Lock Sternum Cancellous 73-2416 - [id number] [employer] Sternalock Hernan 2.4mm 16mm [...] Treviño to screen patient for inclusion into [facility] # [id number]: LeAAPS Trial The patient meets all inclusion [...] 6:00 AM CDT Coronary artery disease of [place] artery of [place] heart with stable angina pectoris (HCC) POCT [...] 7:09 PM CDT Coronary artery disease of [place] artery of [place] heart with stable angina pectoris (HCC) POCT [...] type, unspecified whether angina present, unspecified whether [place] or transplanted heart ISOLATION LEFT ATRIAL APPENDAGE 01/20/2024 8:04 AM CDT Coronary artery disease, unspecified vessel or lesion type, unspecified whether angina present, unspecified whether [place] or transplanted heart 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 01/20/2024 8:04 AM CDT Coronary artery disease, unspecified vessel or lesion type, unspecified whether angina present, unspecified whether [place] or transplanted heart 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 01/20/2024 8:04 AM CDT Coronary artery disease, unspecified vessel or lesion type, unspecified whether angina present, unspecified whether [place] or transplanted heart POCT GLUCOSE DEVICE Routine 01/20/2024 6 :55 AM CDT PREPARE RBC Timed 01/20/2024 6:24 AM CDT documented in this encounter Results * POCT glucose (01/28/2024 12:00 PM CDT) Glucose, POC 179 70 - 199 mg/dL Blood 01/28/2024 12:0 0 PM CDT 01/28/2024 12:00 PM CDT us Stan Treviño MD LAB POCT ORDERABLES - DEVICE Final Result Performing Organization Address [facility] Co de Phone Number [facility] [place] [address] * POCT glucose (01/28/2024 10:38 AM CDT) Glucose, POC 179 70 - 199 mg/dL Blood 01/28/2024 10:3 8 AM CDT 01/28/2024 10:38 AM CDT Stan Treviño MD LAB POCT ORDERABLES - DEVICE Final Result Performing Organization Address [facility] de Phone Number [facility] [place] [address] * POCT glucose (01/28/2024 7:52 AM CDT) Glucose, POC 106 70 - 199 mg/dL Blood 01/28/2024 7:52 AM CDT 01/28/2024 7:52 AM CDT Stan Treviño MD LAB POCT ORDERABLES - DEVICE Final Result Performing Organization Address [facility] [place] [address] * ECG 12 lead (01/28/2024 4:12 AM CDT) Ventricular Rate EKG/Min 66 BPM [facility] Atrial Rate 66 BPM [facility] FL-Interval (MSEC) 142 ms [facility] QRS-Interval (MSEC) 124 ms [facility] QT-Interval (MSEC) 470 ms [facility] QTc 492 ms [facility] P [place] 52 degrees [facility] R [place] -61 degrees [facility] T [place] 39 degrees [facility] Diagnosis Normal sinus rhythm Right bundle branch block Left anterior fascicular block Bifascicular block Possible Lateral infarct , age undetermined Abnormal ECG When compared with ECG of 27-JAN-2024 05:05, Borderline criteria for Lateral infarct are now Present Confirmed by MAHI RACHEL M.D ([id number]) on 01/28/2024 11:47:23 AM [facility] 01/28/2024 4:12 AM CDT 01/28/2024 11:47 AM CDT Marisela Russell CLERICAL ADMINISTRATIVE ASSISTANT ECG ORDERABLES Final Res ult Performing Organization Address [facility]/ZIP Co de Phone Number [facility] * POCT glucose (01/28/2024 1:18 AM CDT) Glucose, POC 119 70 - 199 mg/dL Blood 01/28/2024 1:18 AM CDT 01/28/2024 1:18 AM CDT Stan Treviño MD LAB POCT ORDERABLES - DEVICE Final Result Performing Organization Address [facility] Co de Phone Number [facility] [place] [address] * (ABNORMAL) eGFR (01/27/2024 9:03 PM CDT) [...] NP LAB BLOOD ORDERABLES Final R esult [facility] [place] [address] * (ABNORMAL) CBC without differential (01/27/2024 9:03 PM CDT) WBC 7.6 3.8 - 9.9 K/cumm Hgb 7.9(L) 11.9 - 15.5 g/dL [facility] Hct 24.4(L) 35.6 - 45.5 % [facility] Plt 230 150 - 400 K/cumm [facility] MPV 11.0 9.1 - 12.3 fL [facility] RBC 2.69(L) 3.90 - 5.20 M/cumm [facility] MCV 90.7 81.3 - 96.4 fL [facility] MCH 29.4 27.1 - 33.3 pg [facility] MCHC 32.4 32.3 - 35.7 g/dL [facility] RDW CV 14.2 11.1 - 14.9 % [facility] RDW SD 45.8 35.7 - 48.1 fL [facility] NRBC abs 0.00 0.00 - 0.01 K/cumm [facility] Blood 01/27/2024 9:03 PM CDT 01/27/2024 9:35 PM CDT Nii Garces NP LAB BLOOD ORDERABLES Final R esult [facility] [place] [address] * (ABNORMAL) Basic metabolic panel (01/27/2024 9:03 PM CDT) Pathologist [facility] Sodium 138 135 - 145 mmol/L Potassium, pl 4.4 3.3 - 4.9 mmol/L [facility] Chloride 104 97 - 110 mmol/L [facility] CO2 25 22 - 32 mmol/L [facility] Anion gap 9 2 - 15 mmol/L [facility] BUN 29(H) 6 - 25 mg/dL [facility] Creatinine 1.40(H) 0.60 - 1.10 mg/dL [facility] Glucose 165 70 - 199 mg/dL [facility] Comment: Interpretive Data Fasting glucose >/= 126 [...] 2022. Calcium 8.5 8.5 - 10.3 mg/dL [facility] Blood 01/27/2024 9:03 PM CDT 01/27/2024 9:35 PM CDT Nii Garces NP LAB BLOOD ORDERABLES Final R esult [facility] [place] [address] * Phosphorus (01/27/2024 9:03 PM CDT) Pathologist [facility] Phosphorus, pl 3.6 2.3 - 4.5 mg/dL Blood 01/27/2024 9:03 PM CDT 01/27/2024 9:35 PM CDT Nii Garces NP LAB BLOOD ORDERABLES Final R esult Performing Organization Address City/[facility]/[place] [address] * Magnesium (01/27/2024 9:03 PM CDT) [facility] Magnesium 2.0 1.4 - 2.5 mg/dL Blood 01/27/2024 9:03 PM CDT 01/27/2024 9:35 PM CDT Nii Garces NP LAB BLOOD ORDERABLES Final R esult Performing Organization Address [facility] Co de Phone Number [facility] [place] [address] * (ABNORMAL) POCT glucose (01/27/2024 7:33 PM CDT) [facility] Glucose, POC 226(H) 70 - 199 mg/dL Blood 01/27/2024 7:33 PM CDT 01/27/2024 7:33 PM CDT us Stan Treviño MD LAB POCT ORDERABLES - DEVICE Final Result [facility] [place] [address] * POCT glucose (01/27/2024 4:55 PM CDT) Glucose, POC 163 70 - 199 mg/dL Blood 01/27/2024 4:55 PM CDT 01/27/2024 4:55 PM CDT us Stan Treviño MD LAB POCT ORDERABLES - DEVICE Final Result Performing Organization Address [facility] Co de Phone Number [facility] [place] [address] * POCT glucose (01/27/2024 11:20 AM CDT) Glucose, POC 127 70 - 199 mg/dL Blood 01/27/2024 11:2 0 AM CDT 01/27/2024 11:20 AM CDT Stan Treviño MD LAB POCT ORDERABLES - DEVICE Final Result Performing Organization Address [facility] Co de Phone Number [facility] [place] [address] * POCT glucose (01/27/2024 8:51 AM CDT) Glucose, POC 106 70 - 199 mg/dL Blood 01/27/2024 8:51 AM CDT 01/27/2024 8:51 AM CDT Stan Treviño MD LAB POCT ORDERABLES - DEVICE Final Result Performing Organization Address City/[facility] Co de Phone Number [facility] [place] [address] * POCT glucose (01/27/2024 7:29 AM CDT) Glucose, POC 107 70 - 199 mg/dL Blood 01/27/2024 7:29 AM CDT 01/27/2024 7:29 AM CDT Stan Treviño MD LAB POCT ORDERABLES - DEVICE Final Result Performing Organization Address [facility] Co de Phone Number [facility] [place] [address] * ECG 12 lead (01/27/2024 5:05 AM CDT) Ventricular Rate EKG/Min 80 BPM [facility] Atrial Rate 80 BPM [facility] FL-Interval (MSEC) 136 ms [facility] QRS-Interval (MSEC) 122 ms [facility] QT-Interval (MSEC) 426 ms [facility] QTc 491 ms [facility] P [place] 55 degrees [facility] R [place] -63 degrees [facility] T [place] 38 degrees [facility] Diagnosis Normal sinus rhythm with sinus arrhythmia Right bundle branch block Left anterior fascicular block Bifascicular block Abnormal ECG When compared with ECG of 26-JAN-2024 02:54, (unconfirmed) Premature ventricular complexes are no longer Present Confirmed by MAHI RACHEL M.D ([id number]) on 01/27/2024 12:23:55 PM [facility] 01/27/2024 5:05 AM CDT 01/27/2024 12:23 PM CDT Marisela Russell CLERICAL ADMINISTRATIVE ASSISTANT ECG ORDERABLES Final Res ult Performing Organization Address [facility] Co de Phone Number [facility] * POCT glucose (01/27/2024 3:13 AM CDT) Glucose, POC 123 70 - 199 mg/dL Blood 01/27/2024 3:13 AM CDT 01/27/2024 3:13 AM CDT Stan Treviño MD LAB POCT ORDERABLES - DEVICE Final Result Performing Organization Address City/[facility]/ZIP Co de Phone Number [facility] [place] [address] * POCT glucose (01/27/2024 2:14 AM CDT) Glucose, POC 119 70 - 199 mg/dL Blood 01/27/2024 2:14 AM CDT 01/27/2024 2:14 AM CDT Stan Treviño MD LAB POCT ORDERABLES - DEVICE Final Result Performing Organization Address [facility] [place] [address] * POCT glucose (01/27/2024 1:39 AM CDT) Glucose, POC 92 70 - 199 mg/dL Blood 01/27/2024 1:39 AM CDT 01/27/2024 1:39 AM CDT Stan Treviño MD LAB POCT ORDERABLES - DEVICE Final Result Performing Organization Address [facility] [place] [address] * POCT glucose (01/27/2024 1:19 AM CDT) Glucose, POC 73 70 - 199 mg/dL Blood 01/27/2024 1:19 AM CDT 01/27/2024 1:19 AM CDT Stan Treviño MD LAB POCT ORDERABLES - DEVICE Final Result Performing Organization Address [facility] [place] [address] * (ABNORMAL) POCT glucose (01/27/2024 1:00 AM CDT) Glucose, POC 58(L) 70 - 199 mg/dL Blood 01/27/2024 1:00 AM CDT 01/27/2024 1:00 AM CDT us Stan Treviño MD LAB POCT ORDERABLES - DEVICE Final Result [facility] [place] [address] * (ABNORMAL) eGFR (01/26/2024 9:20 PM CDT) [...] 9:49 PM CDT us Nii Ray Palmejar CLERICAL ADMINISTRATIVE ASSISTANT LAB BLOOD ORDERABLES Final R esult Performing Organization Address City/[facility]/ZIP Co de Phone Number [facility] [place] [address] * Type and screen (01/26/2024 9:20 PM CDT) Pathologist [facility] ABO Rh A Positive Sergio, indirect Negative [facility] Blood 01/26/2024 9:20 PM CDT 01/26/2024 9:55 PM CDT Narrative [facility] - 01/26/2024 10:57 PM CDT Has the patient had Daratumumab or Isatuximab in the past 6 months?->Unknown Eloisa Freeman CLERICAL ADMINISTRATIVE ASSISTANT LAB BLOOD BANK TEST ORDERABLES F inal Result Performing Organization Address [facility] Co de Phone Number [facility] [place] [address] * (ABNORMAL) CBC without differential (01/26/2024 9:20 PM CDT) [facility] WBC 8.2 3.8 - 9.9 K/cumm Hgb 8.0(L) 11.9 - 15.5 g/dL [facility] Hct 24.6(L) 35.6 - 45.5 % [facility] Plt 211 150 - 400 K/cumm [facility] MPV 11.0 9.1 - 12.3 fL [facility] RBC 2.73(L) 3.90 - 5.20 M/cumm [facility] MCV 90.1 81.3 - 96.4 fL [facility] MCH 29.3 27.1 - 33.3 pg [facility] MCHC 32.5 32.3 - 35.7 g/dL [facility] RDW CV 13.9 11.1 - 14.9 % [facility] RDW SD 45.2 35.7 - 48.1 fL [facility] NRBC abs 0.00 0.00 - 0.01 K/cumm [facility] Blood 01/26/2024 9:20 PM CDT 01/26/2024 9:49 PM CDT Nii Garces NP LAB BLOOD ORDERABLES Final R esult [facility] [place] [address] * (ABNORMAL) Basic metabolic panel (01/26/2024 9:20 PM CDT) [facility] Sodium 140 135 - 145 mmol/L Potassium, pl 4.6 3.3 - 4.9 mmol/L [facility] Chloride 105 97 - 110 mmol/L [facility] CO2 24 22 - 32 mmol/L [facility] Anion gap 11 2 - 15 mmol/L [facility] BUN 33(H) 6 - 25 mg/dL [facility] Creatinine 1.34(H) 0.60 - 1.10 mg/dL [facility] Glucose 138 70 - 199 mg/dL [facility] Comment: Interpretive Data Fasting glucose >/= 126 [...] 2022. Calcium 8.5 8.5 - 10.3 mg/dL [facility] Blood 01/26/2024 9:20 PM CDT 01/26/2024 9:49 PM CDT us Nii Garces NP LAB BLOOD ORDERABLES Final R esult Performing Organization Address City/[facility]/ZIP Co de Phone Number [facility] [place] [address] * Phosphorus (01/26/2024 9:20 PM CDT) Phosphorus, pl 3.5 2.3 - 4.5 mg/dL Blood 01/26/2024 9:20 PM CDT 01/26/2024 9:49 PM CDT Nii Garces NP LAB BLOOD ORDERABLES Final R esult Performing Organization Address [facility] Co de Phone Number [facility] [place] [address] * Magnesium (01/26/2024 9:20 PM CDT) Magnesium 1.9 1.4 - 2.5 mg/dL Blood 01/26/2024 9:20 PM CDT 01/26/2024 9:49 PM CDT us Nii Garces NP LAB BLOOD ORDERABLES Final R esult Performing Organization Address [facility] Co de Phone Number [facility] [place] [address] * (ABNORMAL) POCT glucose (01/26/2024 7:51 PM CDT) Glucose, POC 201(H) 70 - 199 mg/dL Blood 01/26/2024 7:51 PM CDT 01/26/2024 7:51 PM CDT us Stan Treviño MD LAB POCT ORDERABLES - DEVICE Final Result Performing Organization Address [facility] Co de Phone Number [facility] [place] [address] * (ABNORMAL) POCT glucose (01/26/2024 6:48 PM CDT) Glucose, POC 234(H) 70 - 199 mg/dL Blood 01/26/2024 6:48 PM CDT 01/26/2024 6:48 PM CDT Stan Treviño MD LAB POCT ORDERABLES - DEVICE Final Result Performing Organization Address [facility] de Phone Number [facility] [place] [address] * POCT glucose (01/26/2024 5:42 PM CDT) Glucose, POC 95 70 - 199 mg/dL Blood 01/26/2024 5:42 PM CDT 01/26/2024 5:42 PM CDT Stan Treviño MD LAB POCT ORDERABLES - DEVICE Final Result Performing Organization Address [facility] de Phone Number [facility] [place] [address] * (ABNORMAL) POCT glucose (01/26/2024 5:21 PM CDT) Glucose, POC 65(L) 70 - 199 mg/dL Blood 01/26/2024 5:21 PM CDT 01/26/2024 5:21 PM CDT Stan Treviño MD LAB POCT ORDERABLES - DEVICE Final Result Performing Organization Address [facility] [place] [address] * Infection Prevention Ema auris PCR, surveillance Axilla/Groin (01/26/2024 3:28 PM CDT) [facility] Ema auris DNA Not Detected Not Detected [facility] Comment: Interpretive Data Testing performed by [facility] Molecular Infectious Disease Laboratory using the [employer]ia[employer] MDX Ema auris assay. ??This assay detects DNA from Ema auris using Real-Time PCR. ??This assay is laboratory developed and is not cleared by the [facility] Food and Drug Administration. ??The performance characteristics have been verified by the [facility] Molecular Infectious Disease Laboratory. Interpretive data was last reviewed on 09/04/2023 Axilla/Groin 01/26/2024 3:28 PM CDT 01/26/2024 4:31 PM CDT Jean Paul Platt MD LAB MICROBIOLOGY - GENERAL OR DERABLES Final Result Performing Organization Address City/[facility] Co de Phone Number [facility] [place] [address] [facility] * POCT glucose (01/26/2024 12:02 PM CDT) Glucose, POC 150 70 - 199 mg/dL Blood 01/26/2024 12:0 2 PM CDT 01/26/2024 12:02 PM CDT Stan Treviño MD LAB POCT ORDERABLES - DEVICE Final Result Performing Organization Address [facility] Co de Phone Number [facility] [place] [address] * POCT glucose (01/26/2024 8:18 AM CDT) Glucose, POC 94 70 - 199 mg/dL Blood 01/26/2024 8:18 AM CDT 01/26/2024 8:18 AM CDT Stan Treviño MD LAB POCT ORDERABLES - DEVICE Final Result Performing Organization Address [facility] Co de Phone Number [facility] [place] [address] * POCT glucose (01/26/2024 6:38 AM CDT) Glucose, POC 111 70 - 199 mg/dL Blood 01/26/2024 6:38 AM CDT 01/26/2024 6:38 AM CDT us Stan Treviño MD LAB POCT ORDERABLES - DEVICE Final Result Performing Organization Address [facility] de Phone Number [facility] [place] [address] * POCT glucose (01/26/2024 5:01 AM CDT) Glucose, POC 107 70 - 199 mg/dL Blood 01/26/2024 5:01 AM CDT 01/26/2024 5:01 AM CDT Stan Treviño MD LAB POCT ORDERABLES - DEVICE Final Result Performing Organization Address [facility] de Phone Number [facility] [place] [address] * (ABNORMAL) POCT glucose (01/26/2024 4:31 AM CDT) Pathologist [facility] Glucose, POC 64(L) 70 - 199 mg/dL Blood 01/26/2024 4:31 AM CDT 01/26/2024 4:31 AM CDT Stan Treviño MD LAB POCT ORDERABLES - DEVICE Final Result Performing Organization Address [facility] [place] [address] * ECG 12 lead (01/26/2024 2:54 AM CDT) Ventricular Rate EKG/Min 74 BPM [facility] Atrial Rate 74 BPM [facility] FL-Interval (MSEC) 140 ms [facility] QRS-Interval (MSEC) 124 ms [facility] QT-Interval (MSEC) 444 ms [facility] QTc 492 ms [facility] P [place] 50 degrees [facility] R [place] -57 degrees [facility] T [place] 27 degrees [facility] Diagnosis Sinus rhythm with frequent Premature ventricular complexes Right bundle branch block Left anterior fascicular block Bifascicular block Possible Lateral infarct (cited on or before 25-JAN-2024) Abnormal ECG When compared with ECG of 25-JAN-2024 13:07, (unconfirmed) Premature ventricular complexes are now Present Confirmed by MAHI RACHEL M.D ([id number]) on 01/27/2024 12:50:01 PM [facility] 01/26/2024 2:5 4 AM CDT 01/27/2024 12:50 PM CDT us Marisela Russell CLERICAL ADMINISTRATIVE ASSISTANT ECG ORDERABLES Final Res ult [facility] * POCT glucose (01/26/2024 2:43 AM CDT) Glucose, POC 83 70 - 199 mg/dL Blood 01/26/2024 2:43 AM CDT 01/26/2024 2:43 AM CDT us Stan Treviño MD LAB POCT ORDERABLES - DEVICE Final Result [facility] [place] [address] * (ABNORMAL) eGFR (01/25/2024 9:40 PM CDT) [...] NP LAB BLOOD ORDERABLES Final R esult [facility] Department of Laboratories [place], [place] [id number] * (ABNORMAL) CBC without differential (01/25/2024 9:40 PM CDT) WBC 8.6 3.8 - 9.9 K/cumm Hgb 8.5(L) 11.9 - 15.5 g/dL [facility] Hct 26.8(L) 35.6 - 45.5 % [facility] Plt 210 150 - 400 K/cumm [facility] MPV 11.3 9.1 - 12.3 fL [facility] RBC 2.95(L) 3.90 - 5.20 M/cumm [facility] MCV 90.8 81.3 - 96.4 fL [facility] MCH 28.8 27.1 - 33.3 pg [facility] MCHC 31.7(L) 32.3 - 35.7 g/dL [facility] RDW CV 13.8 11.1 - 14.9 % [facility] RDW SD 45.3 35.7 - 48.1 fL [facility] NRBC abs 0.00 0.00 - 0.01 K/cumm [facility] Blood 01/25/2024 9:40 PM CDT 01/25/2024 10:45 PM CDT Nii Garces NP LAB BLOOD ORDERABLES Final R esult [facility] [place] [address] * (ABNORMAL) Basic metabolic panel (01/25/2024 9:40 PM CDT) Sodium 141 135 - 145 mmol/L Potassium, pl 3.6 3.3 - 4.9 mmol/L [facility] Chloride 105 97 - 110 mmol/L [facility] CO2 26 22 - 32 mmol/L [facility] Anion gap 10 2 - 15 mmol/L [facility] BUN 36(H) 6 - 25 mg/dL [facility] Creatinine 1.30(H) 0.60 - 1.10 mg/dL [facility] Glucose 131 70 - 199 mg/dL [facility] Comment: Interpretive Data Fasting glucose >/= 126 [...] 2022. Calcium 8.6 8.5 - 10.3 mg/dL [facility] Blood 01/25/2024 9:40 PM CDT 01/25/2024 10:45 PM CDT Nii Garces NP LAB BLOOD ORDERABLES Final R esult Performing Organization Address City/[facility]/ZIP Co de Phone Number [facility] [place] [address] * Phosphorus (01/25/2024 9:40 PM CDT) Phosphorus, pl 4.2 2.3 - 4.5 mg/dL Blood 01/25/2024 9:40 PM CDT 01/25/2024 10:45 PM CDT Nii Garces NP LAB BLOOD ORDERABLES Final R esult Performing Organization Address [facility] Co de Phone Number [facility] [place] [address] * Magnesium (01/25/2024 9:40 PM CDT) Magnesium 2.1 1.4 - 2.5 mg/dL Blood 01/25/2024 9:40 PM CDT 01/25/2024 10:45 PM CDT Nii Garces NP LAB BLOOD ORDERABLES Final R esult Performing Organization Address [facility] Co de Phone Number [facility] [place] [address] * POCT glucose (01/25/2024 9:39 PM CDT) Glucose, POC 146 70 - 199 mg/dL Blood 01/25/2024 9:39 PM CDT 01/25/2024 9:39 PM CDT us Stan Treviño MD LAB POCT ORDERABLES - DEVICE Final Result Performing Organization Address City/[facility]/ZIP Co de Phone Number [facility] [place] [address] * POCT glucose (01/25/2024 6:40 PM CDT) Glucose, POC 197 70 - 199 mg/dL Blood 01/25/2024 6:40 PM CDT 01/25/2024 6:40 PM CDT Stan Treviño MD LAB POCT ORDERABLES - DEVICE Final Result Performing Organization Address [facility] Co de Phone Number [facility] [place] [address] * POCT glucose (01/25/2024 5:32 PM CDT) Glucose, POC 111 70 - 199 mg/dL Blood 01/25/2024 5:32 PM CDT 01/25/2024 5:32 PM CDT Stan Treviño MD LAB POCT ORDERABLES - DEVICE Final Result Performing Organization Address [facility] de Phone Number [facility] [place] [address] * POCT glucose (01/25/2024 5:16 PM CDT) Glucose, POC 72 70 - 199 mg/dL Blood 01/25/2024 5:16 PM CDT 01/25/2024 5:16 PM CDT Stan Treviño MD LAB POCT ORDERABLES - DEVICE Final Result Performing Organization Address [facility] [place] [address] * (ABNORMAL) POCT glucose (01/25/2024 5:00 PM CDT) Glucose, POC 61(L) 70 - 199 mg/dL Blood 01/25/2024 5:00 PM CDT 01/25/2024 5:00 PM CDT us Stan Treviño MD LAB POCT ORDERABLES - DEVICE Final Result Performing Organization Address [facility]/ZIP Co de Phone Number [facility] [place] [address] * ECG 12 lead (01/25/2024 1:07 PM CDT) Pathologist [facility] Ventricular Rate EKG/Min 74 BPM [facility] Atrial Rate 74 BPM [facility] FL-Interval (MSEC) 122 ms [facility] QRS-Interval (MSEC) 126 ms [facility] QT-Interval (MSEC) 442 ms [facility] QTc 490 ms [facility] P [place] 55 degrees [facility] R [place] -53 degrees [facility] T [place] 27 degrees [facility] Diagnosis Normal sinus rhythm Right bundle branch block Left anterior fascicular block Bifascicular block Possible Lateral infarct , age undetermined Abnormal ECG Confirmed by Anu CLARK, [facility] ([id number]) on 01/27/2024 2:47:59 PM [facility] 01/25/2024 1:07 PM CDT 01/27/2024 2:47 PM CDT Marisela Russell NP ECG ORDERABLES Final Res ult Performing Organization Address [facility] Co de Phone Number [facility] * XR Chest Pa Lateral 2 Views [...] signed by: Robert Fiore M.D. Marisela Russell CLERICAL ADMINISTRATIVE ASSISTANT IMG XR PROCEDURES Final R esult * (ABNORMAL) POCT glucose (01/25/2024 11:10 AM CDT) Glucose, POC 221(H) 70 - 199 mg/dL Blood 01/25/2024 11:1 0 AM CDT 01/25/2024 11:10 AM CDT Stan Treviño MD LAB POCT ORDERABLES - DEVICE Final Result Performing Organization Address [facility] Co de Phone Number [facility] [place] [address] * POCT glucose (01/25/2024 8:28 AM CDT) Glucose, POC 124 70 - 199 mg/dL Blood 01/25/2024 8:28 AM CDT 01/25/2024 8:28 AM CDT Stan Treviño MD LAB POCT ORDERABLES - DEVICE Final Result Performing Organization Address [facility] Co de Phone Number [facility] [place] [address] * POCT glucose (01/25/2024 2:02 AM CDT) Glucose, POC 109 70 - 199 mg/dL Blood 01/25/2024 2:02 AM CDT 01/25/2024 2:02 AM CDT Stan Treviño MD LAB POCT ORDERABLES - DEVICE Final Result [facility] [place] [address] * (ABNORMAL) eGFR (01/24/2024 8:13 PM CDT) [...] ORDERABLES Final R esult Performing Organization Address City/[facility]/ZIP Co de Phone Number JORGE [facility] [place] [address] * (ABNORMAL) CBC without differential (01/24/2024 8:13 PM CDT) Pathologist [facility] WBC 8.6 3.8 - 9.9 K/cumm Hgb 8.5(L) 11.9 - 15.5 g/dL [facility] Hct 27.3(L) 35.6 - 45.5 % [facility] Plt 169 150 - 400 K/cumm [facility] MPV 11.1 9.1 - 12.3 fL [facility] RBC 2.96(L) 3.90 - 5.20 M/cumm [facility] MCV 92.2 81.3 - 96.4 fL [facility] MCH 28.7 27.1 - 33.3 pg [facility] MCHC 31.1(L) 32.3 - 35.7 g/dL [facility] RDW CV 13.9 11.1 - 14.9 % [facility] RDW SD 46.5 35.7 - 48.1 fL [facility] NRBC abs 0.00 0.00 - 0.01 K/cumm [facility] Blood 01/24/2024 8:13 PM CDT 01/24/2024 8:53 PM CDT us Nii Garces NP LAB BLOOD ORDERABLES Final [facility] esult [facility] [place] [address] * (ABNORMAL) Basic metabolic panel (01/24/2024 8:13 PM CDT) Pathologist [facility] Sodium 143 135 - 145 mmol/L Potassium, pl 4.0 3.3 - 4.9 mmol/L [facility] Chloride 108 97 - 110 mmol/L [facility] CO2 23 22 - 32 mmol/L [facility] Anion gap 12 2 - 15 mmol/L [facility] BUN 33(H) 6 - 25 mg/dL [facility] Creatinine 1.06 0.60 - 1.10 mg/dL [facility] Glucose 140 70 - 199 mg/dL [facility] Comment: Interpretive Data Fasting glucose >/= 126 [...] 2022. Calcium 8.2(L) 8.5 - 10.3 mg/dL [facility] Blood 01/24/2024 8:13 PM CDT 01/24/2024 8:52 PM CDT Nii Garces NP LAB BLOOD ORDERABLES Final R esult Performing Organization Address City/[facility]/ZIP Co de Phone Number [facility] [place] [address] * Phosphorus (01/24/2024 8:13 PM CDT) Pathologist [facility] Phosphorus, pl 3.1 2.3 - 4.5 mg/dL Blood 01/24/2024 8:13 PM CDT 01/24/2024 8:52 PM CDT Nii Garces NP LAB BLOOD ORDERABLES Final R esult Performing Organization Address City/[facility]/ZIP Co de Phone Number [facility] [place] [address] * Magnesium (01/24/2024 8:13 PM CDT) Magnesium 2.0 1.4 - 2.5 mg/dL Blood 01/24/2024 8:13 PM CDT 01/24/2024 8:52 PM CDT Nii Garces NP LAB BLOOD ORDERABLES Final R esult Performing Organization Address [facility] Co de Phone Number [facility] [place] [address] * POCT glucose (01/24/2024 7:27 PM CDT) Glucose, POC 161 70 - 199 mg/dL Blood 01/24/2024 7:27 PM CDT 01/24/2024 7:27 PM CDT Stan Treviño MD LAB POCT ORDERABLES - DEVICE Final Result Performing Organization Address [facility] Co de Phone Number [facility] [place] [address] * POCT glucose (01/24/2024 4:26 PM CDT) Glucose, POC 97 70 - 199 mg/dL Blood 01/24/2024 4:26 PM CDT 01/24/2024 4:26 PM CDT Stan Treviño MD LAB POCT ORDERABLES - DEVICE Final Result Performing Organization Address [facility] de Phone Number [facility] [place] [address] * XR Chest 1 View - in [...] LAB POCT ORDERABLES - DEVICE Final Result [facility] [address] * POCT glucose (01/24/2024 7:32 AM CDT) Glucose, POC 143 70 - 199 mg/dL Blood 01/24/2024 7:32 AM CDT 01/24/2024 7:32 AM CDT Stan Treviño MD LAB POCT ORDERABLES - DEVICE Final Result Performing Organization Address [facility] de [place] [address] * POCT glucose (01/24/2024 1:43 AM CDT) Glucose, POC 194 70 - 199 mg/dL Blood 01/24/2024 1:43 AM CDT 01/24/2024 1:43 AM CDT Stan Treviño MD LAB POCT ORDERABLES - DEVICE Final Result Performing Organization Address [facility] [place] [address] * (ABNORMAL) eGFR (01/23/2024 10:31 PM CDT) [...] NP LAB BLOOD ORDERABLES Final R esult [facility] [place] [address] * (ABNORMAL) CBC without differential (01/23/2024 10:31 PM CDT) WBC 7.2 3.8 - 9.9 K/cumm Hgb 8.4(L) 11.9 - 15.5 g/dL [facility] Hct 25.8(L) 35.6 - 45.5 % [facility] Plt 155 150 - 400 K/cumm [facility] MPV 11.5 9.1 - 12.3 fL [facility] RBC 2.84(L) 3.90 - 5.20 M/cumm [facility] MCV 90.8 81.3 - 96.4 fL [facility] MCH 29.6 27.1 - 33.3 pg [facility] MCHC 32.6 32.3 - 35.7 g/dL [facility] RDW CV 13.9 11.1 - 14.9 % [facility] RDW SD 46.9 35.7 - 48.1 fL [facility] NRBC abs 0.00 0.00 - 0.01 K/cumm [facility] Blood 01/23/2024 10:3 1 PM CDT 01/23/2024 10:59 PM CDT us Nii Garces NP LAB BLOOD ORDERABLES Final R esult [facility] [place] [address] * (ABNORMAL) Basic metabolic panel (01/23/2024 10:31 PM CDT) [facility] Sodium 139 135 - 145 mmol/L Potassium, pl 4.4 3.3 - 4.9 mmol/L [facility] Chloride 106 97 - 110 mmol/L [facility] CO2 22 22 - 32 mmol/L [facility] Anion gap 11 2 - 15 mmol/L [facility] BUN 43(H) 6 - 25 mg/dL [facility] Creatinine 1.28(H) 0.60 - 1.10 mg/dL [facility] Glucose 242(H) 70 - 199 mg/dL [facility] Comment: Interpretive Data Fasting glucose >/= 126 [...] 2022. Calcium 8.3(L) 8.5 - 10.3 mg/dL [facility] Blood 01/23/2024 10:3 1 PM CDT 01/23/2024 11:08 PM CDT us Nii Garces NP LAB BLOOD ORDERABLES Final R esult Performing Organization Address City/[facility]/ZIP Co de Phone Number [facility] [address] * Phosphorus (01/23/2024 10:31 PM CDT) Phosphorus, pl 2.6 2.3 - 4.5 mg/dL Blood 01/23/2024 10:3 1 PM CDT 01/23/2024 11:08 PM CDT Nii Garces NP LAB BLOOD ORDERABLES [place] [address] * Magnesium (01/23/2024 10:31 PM CDT) Pathologist [facility] Magnesium 2.2 1.4 - 2.5 mg/dL Blood 01/23/2024 10:3 1 PM CDT 01/23/2024 11:08 PM CDT Nii Garces NP LAB BLOOD ORDERABLES Final R esult Performing Organization Address [facility] [place] [address] * Type and screen (01/23/2024 10:31 PM CDT) Pathologist [facility] ABO Rh A Positive Sergio, indirect Negative [facility] Blood 01/23/2024 10:3 1 PM CDT 01/23/2024 11:07 PM CDT Narrative [facility] - 01/24/2024 12:04 AM CDT Has the patient had Daratumumab or Isatuximab in the past 6 months?->Unknown us Stan Treviño MD LAB BLOOD BANK TEST ORDER[place] [address] * (ABNORMAL) POCT glucose (01/23/2024 7:57 PM CDT) Glucose, POC 272(H) 70 - 199 mg/dL Blood 01/23/2024 7:57 PM CDT 01/23/2024 7:57 PM CDT Stan Treviño MD LAB POCT ORDERABLES - DEVICE Final Result [facility] [place] [address] * XR Chest 1 View - in [...] signed by: Guanakito Reed M.D. Nii Garces CLERICAL ADMINISTRATIVE ASSISTANT IMG XR PROCEDURES Final Resu lt * POCT glucose (01/23/2024 5:59 PM CDT) Glucose, POC 142 70 - 199 mg/dL Blood 01/23/2024 5:59 PM CDT 01/23/2024 5:59 PM CDT Stan Treviño MD LAB POCT ORDERABLES - DEVICE Final Result Performing Organization Address [facility] de Phone Number [facility] [place] [address] * POCT glucose (01/23/2024 5:36 PM CDT) Glucose, POC 97 70 - 199 mg/dL Blood 01/23/2024 5:36 PM CDT 01/23/2024 5:36 PM CDT Stan Treviño MD LAB POCT ORDERABLES - DEVICE Final Result Performing Organization Address [facility] Phone Number [facility] [place] [address] * (ABNORMAL) POCT glucose (01/23/2024 5:09 PM CDT) Glucose, POC 56(L) 70 - 199 mg/dL Blood 01/23/2024 5:09 PM CDT 01/23/2024 5:09 PM CDT Stan Treviño MD LAB POCT ORDERABLES - DEVICE Final Result Performing Organization Address [facility] [place] [address] * (ABNORMAL) POCT glucose (01/23/2024 11:34 AM CDT) Glucose, POC 217(H) 70 - 199 mg/dL Blood 01/23/2024 11:3 4 AM CDT 01/23/2024 11:34 AM CDT us Stan Treviño MD LAB POCT ORDERABLES - DEVICE Final Result Performing Organization Address City/[facility] [place] [address] * POCT glucose (01/23/2024 7:39 AM CDT) [facility] Glucose, POC 152 70 - 199 mg/dL Blood 01/23/2024 7:39 AM CDT 01/23/2024 7:39 AM CDT us Stan Treviño MD LAB POCT ORDERABLES - DEVICE Final Result Performing Organization Address City/[facility] [place] [address] * POCT glucose (01/23/2024 2:16 AM CDT) [facility] Glucose, POC 141 70 - 199 mg/dL Blood 01/23/2024 2:16 AM CDT 01/23/2024 2:16 AM CDT us Stan Treviño MD LAB POCT ORDERABLES - DEVICE Final Result Performing Organization Address City/[facility] [place] [address] * POCT glucose (01/22/2024 11:19 PM CDT) Glucose, POC 183 70 - 199 mg/dL Blood 01/22/2024 11:1 9 PM CDT 01/22/2024 11:19 PM CDT us Stan Treviño MD LAB POCT ORDERABLES - DEVICE Final Result [facility] [place] [address] * (ABNORMAL) eGFR (01/22/2024 10:21 PM CDT) [...] 10:41 PM CDT us Nii Ray Palmejar CLERICAL ADMINISTRATIVE ASSISTANT LAB BLOOD ORDERABLES Final R esult [facility] [place] [address] * (ABNORMAL) CBC without differential (01/22/2024 10:21 PM CDT) Pathologist [facility] WBC 11.2(H) 3.8 - 9.9 K/cumm Hgb 8.7(L) 11.9 - 15.5 g/dL [facility] Hct 26.9(L) 35.6 - 45.5 % [facility] Plt 136(L) 150 - 400 K/cumm [facility] MPV 11.6 9.1 - 12.3 fL [facility] RBC 2.96(L) 3.90 - 5.20 M/cumm [facility] MCV 90.9 81.3 - 96.4 fL [facility] MCH 29.4 27.1 - 33.3 pg [facility] MCHC 32.3 32.3 - 35.7 g/dL [facility] RDW CV 14.3 11.1 - 14.9 % [facility] RDW SD 47.3 35.7 - 48.1 fL [facility] NRBC abs 0.00 0.00 - 0.01 K/cumm [facility] Blood 01/22/2024 10:2 1 PM CDT 01/22/2024 10:40 PM CDT Nii Garces NP LAB BLOOD ORDERABLES Final R esult [facility] [place] [address] * (ABNORMAL) Basic metabolic panel (01/22/2024 10:21 PM CDT) Pathologist [facility] Sodium 139 135 - 145 mmol/L Potassium, pl 4.4 3.3 - 4.9 mmol/L [facility] Chloride 106 97 - 110 mmol/L [facility] CO2 23 22 - 32 mmol/L [facility] Anion gap 10 2 - 15 mmol/L [facility] BUN 43(H) 6 - 25 mg/dL [facility] Creatinine 1.41(H) 0.60 - 1.10 mg/dL [facility] Glucose 195 70 - 199 mg/dL [facility] Comment: Interpretive Data Fasting glucose >/= 126 [...] 2022. Calcium 8.6 8.5 - 10.3 mg/dL [facility] Blood 01/22/2024 10:2 1 PM CDT 01/22/2024 10:41 PM CDT Nii Garces NP LAB BLOOD ORDERABLES Final R esult [facility] [place] [address] * (ABNORMAL) Phosphorus (01/22/2024 10:21 PM CDT) Pathologist [facility] Phosphorus, pl 2.2(L) 2.3 - 4.5 mg/dL Blood 01/22/2024 10:2 1 PM CDT 01/22/2024 10:41 PM CDT Nii Garces NP LAB BLOOD ORDERABLES Final R esult [facility] [place] [address] * Magnesium (01/22/2024 10:21 PM CDT) Magnesium 2.4 1.4 - 2.5 mg/dL Blood 01/22/2024 10:2 1 PM CDT 01/22/2024 10:41 PM CDT Nii Garces NP LAB BLOOD ORDERABLES Final R esult Performing Organization Address [facility] Co de Phone Number [facility] [place] [address] * POCT glucose (01/22/2024 8:38 PM CDT) Glucose, POC 188 70 - 199 mg/dL Blood 01/22/2024 8:38 PM CDT 01/22/2024 8:38 PM CDT Stan Treviño MD LAB POCT ORDERABLES - DEVICE Final Result Performing Organization Address [facility] de Phone Number [facility] [place] [address] * XR Chest 1 View - in [...] * POCT glucose (01/22/2024 4:35 PM CDT) [facility] Signature Glucose, POC 94 70 - 199 mg/dL Blood 01/22/2024 4:35 PM CDT 01/22/2024 4:35 PM CDT Stan Treviño MD LAB POCT ORDERABLES - DEVICE Final Result [facility] [place] [address] * XR Chest 1 View (01/22/2024 2:43 [...] by: Erica Mustafa M.D. us Nii Garces CLERICAL ADMINISTRATIVE ASSISTANT IMG XR PROCEDURES Final Resu lt * POCT glucose (01/22/2024 12:03 PM CDT) [facility] Signature Glucose, POC 196 70 - 199 mg/dL Blood 01/22/2024 12:0 3 PM CDT 01/22/2024 12:03 PM CDT us Stan Treviño MD LAB POCT ORDERABLES - DEVICE Final Result [facility] [place] [address] * POCT glucose (01/22/2024 7:29 AM CDT) Glucose, POC 161 70 - 199 mg/dL Blood 01/22/2024 7:29 AM CDT 01/22/2024 7:29 AM CDT us Stan Treviño MD LAB POCT ORDERABLES - DEVICE Final Result [facility] [place] [address] * (ABNORMAL) eGFR (01/22/2024 5:58 AM CDT) [...] 01/22/2024 6:26 AM CDT us Bri Lindo CLERICAL ADMINISTRATIVE ASSISTANT LAB BLOOD ORDERABLES Final Result Performing Organization Address [facility] Co de Phone Number [facility] [place] [address] * Phosphorus (01/22/2024 5:58 AM CDT) Pathologist [facility] Phosphorus, pl 2.8 2.3 - 4.5 mg/dL Blood 01/22/2024 5:58 AM CDT 01/22/2024 6:26 AM CDT us Bri Lindo CLERICAL ADMINISTRATIVE ASSISTANT LAB BLOOD ORDERABLES Final Result Performing Organization Address [facility] Co de Phone Number [facility] [place] [address] * Magnesium (01/22/2024 5:58 AM CDT) [facility] Magnesium 2.3 1.4 - 2.5 mg/dL Blood 01/22/2024 5:58 AM CDT 01/22/2024 6:26 AM CDT us Bri Lindo CLERICAL ADMINISTRATIVE ASSISTANT LAB BLOOD ORDERABLES Final Result Performing Organization Address [facility] de Phone Number [facility] [place] [address] * (ABNORMAL) Basic metabolic panel (01/22/2024 5:58 AM CDT) Pathologist [facility] Sodium 139 135 - 145 mmol/L Potassium, pl 4.5 3.3 - 4.9 mmol/L [facility] Chloride 106 97 - 110 mmol/L [facility] CO2 25 22 - 32 mmol/L [facility] Anion gap 8 2 - 15 mmol/L [facility] BUN 40(H) 6 - 25 mg/dL [facility] Creatinine 1.53(H) 0.60 - 1.10 mg/dL [facility] Glucose 162 70 - 199 mg/dL [facility] Comment: Interpretive Data Fasting glucose >/= 126 [...] 2022. Calcium 8.9 8.5 - 10.3 mg/dL [facility] Blood 01/22/2024 5:58 AM CDT 01/22/2024 6:26 AM CDT Bri Lindo NP LAB BLOOD ORDERABLES Final Result [facility] [place] [address] * (ABNORMAL) CBC without differential (01/22/2024 5:58 AM CDT) WBC 14.0(H) 3.8 - 9.9 K/cumm Hgb 8.7(L) 11.9 - 15.5 g/dL [facility] Hct 26.9(L) 35.6 - 45.5 % [facility] Plt 134(L) 150 - 400 K/cumm [facility] MPV 11.9 9.1 - 12.3 fL [facility] RBC 2.88(L) 3.90 - 5.20 M/cumm [facility] MCV 93.4 81.3 - 96.4 fL [facility] MCH 30.2 27.1 - 33.3 pg [facility] MCHC 32.3 32.3 - 35.7 g/dL [facility] RDW CV 14.1 11.1 - 14.9 % [facility] RDW SD 48.2(H) 35.7 - 48.1 fL [facility] NRBC abs 0.00 0.00 - 0.01 K/cumm [facility] Blood 01/22/2024 5:58 AM CDT 01/22/2024 6:26 AM CDT Bri Lindo CLERICAL ADMINISTRATIVE ASSISTANT LAB BLOOD ORDERABLES Final Result Performing Organization Address [facility] de Phone Number [facility] [place] [address] * Infection Prevention Ema auris PCR, surveillance Axilla/Groin (01/22/2024 5:55 AM CDT) Pathologist [facility] Ema auris DNA Not Detected Not Detected [facility] Comment: Interpretive Data Testing performed by [facility] Molecular Infectious Disease Laboratory using the [employer] MDX Ema auris assay. ??This assay detects DNA from Ema auris using Real-Time PCR. ??This assay is laboratory developed and is not cleared by the [facility] Food and Drug Administration. ??The performance characteristics have been verified by the [facility] Molecular Infectious Disease Laboratory. Interpretive data was last reviewed on 09/04/2023 Axilla/Groin 01/22/2024 5:55 AM CDT 01/22/2024 6:35 AM CDT Jean Paul Platt MD LAB MICROBIOLOGY - GENERAL OR DERABLES Final Result Performing Organization Address [facility] de Phone Number [facility] [place] [address] [facility] * POCT glucose (01/22/2024 2:42 AM CDT) Pathologist [facility] Glucose, POC 165 70 - 199 mg/dL Blood 01/22/2024 2:42 AM CDT 01/22/2024 2:42 AM CDT Stan Treviño MD LAB POCT ORDERABLES - DEVICE Final Result [facility] [place] [address] * POCT glucose (01/22/2024 12:53 AM CDT) Glucose, POC 167 70 - 199 mg/dL Blood 01/22/2024 12:5 3 AM CDT 01/22/2024 12:53 AM CDT Stan Treviño MD LAB POCT ORDERABLES - DEVICE Final Result Performing Organization Address [facility] Co de Phone Number [facility] Department [place] [address] * XR Chest 1 View - in [...] - DEVICE Final Result Performing Organization Address City/[facility] Co de Phone Number [facility] [place] [address] * (ABNORMAL) POCT glucose (01/21/2024 5:08 PM CDT) Glucose, POC 259(H) 70 - 199 mg/dL Blood 01/21/2024 5:08 PM CDT 01/21/2024 5:08 PM CDT Stan Treviño MD LAB POCT ORDERABLES - DEVICE Final Result Performing Organization Address City/State/[facility] Co de Phone Number [facility] [place] [address] * (ABNORMAL) POCT glucose (01/21/2024 11:42 AM CDT) Glucose, POC 228(H) 70 - 199 mg/dL Blood 01/21/2024 11:4 2 AM CDT 01/21/2024 11:42 AM CDT Stan Treviño MD LAB POCT ORDERABLES - DEVICE Final Result Performing Organization Address [facility]/ZIP Co de Phone Number [facility] Department [place] [address] * ECG 12 lead (01/21/2024 11:01 AM CDT) Ventricular Rate EKG/Min 98 BPM [facility] Atrial Rate 98 BPM [facility] FL-Interval (MSEC) 122 ms [facility] QRS-Interval (MSEC) 118 ms [facility] QT-Interval (MSEC) 388 ms [facility] QTc 495 ms [facility] P [place] 61 degrees [facility] R [place] -51 degrees [facility] T [place] 13 degrees [facility] Diagnosis Normal sinus rhythm with sinus arrhythmia Incomplete right bundle branch block Left anterior fascicular block Prolonged QT Possible Right ventricular hypertrophy When compared with ECG of 20-JAN-2024 17:04, (unconfirmed) ST no longer depressed in Lateral leads Confirmed by JEAN PAUL BUSTOS M.D ([id number]) on 01/22/2024 9:02:17 AM [facility] 01/21/2024 11:0 1 AM CDT 01/22/2024 9:02 AM CDT Cinthia BATISTA ECG ORDERABLES Final Result Performing Organization Address [facility] Co de Phone Number [facility] * POCT glucose (01/21/2024 8:56 AM CDT) Glucose, POC 192 70 - 199 mg/dL Blood 01/21/2024 8:56 AM CDT 01/21/2024 8:56 AM CDT Stan Treviño MD LAB POCT ORDERABLES - DEVICE Final Result Performing Organization Address City/[facility]/ZIP Co de Phone Number [facility] [place] [address] * Critical Care (01/21/2024 6:00 AM CDT) [...] plan with the ICU team and other medical/it architecture consultant staff, making frequent assessments and decisions [...] * POCT glucose (01/21/2024 3:56 AM CDT) [facility] Signature Glucose, POC 178 70 - 199 mg/dL Blood 01/21/2024 3:56 AM CDT 01/21/2024 3:56 AM CDT us Stan Treviño MD LAB POCT ORDERABLES - DEVICE Final Result [facility] [place] [address] * eGFR (01/21/2024 12:55 AM CDT) eGFR [...] LAB BLOOD ORDERABLES F inal Result [facility] [place] [address] * Phosphorus (01/21/2024 12:55 AM CDT) Phosphorus, pl 4.1 2.3 - 4.5 mg/dL Comment:Repeated and Verifie d Blood 01/21/2024 12:5 5 AM CDT 01/21/2024 1:14 AM CDT Cinthia BATISTA LAB BLOOD ORDERABLES F inal Result Performing Organization Address City/[facility] Co de Phone Number [facility] [place] [address] * Magnesium (01/21/2024 12:55 AM CDT) [facility] Magnesium 2.3 1.4 - 2.5 mg/dL Blood 01/21/2024 12:5 5 AM CDT 01/21/2024 1:14 AM CDT Cinthia BATISTA LAB BLOOD ORDERABLES F inal Result Performing Organization Address [facility] de Phone Number [facility] [place] [address] * (ABNORMAL) Basic metabolic panel (01/21/2024 12:55 AM CDT) [facility] Sodium 146(H) 135 - 145 mmol/L Potassium, pl 4.8 3.3 - 4.9 mmol/L [facility] Chloride 114(H) 97 - 110 mmol/L [facility] CO2 21(L) 22 - 32 mmol/L [facility] Anion gap 11 2 - 15 mmol/L [facility] BUN 28(H) 6 - 25 mg/dL [facility] Creatinine 0.99 0.60 - 1.10 mg/dL [facility] Glucose 193 70 - 199 mg/dL [facility] Comment: Interpretive Data Fasting glucose >/= 126 [...] 2022. Calcium 8.8 8.5 - 10.3 mg/dL [facility] Blood 01/21/2024 12:5 5 AM CDT 01/21/2024 1:14 AM CDT Cinthia BATISTA LAB BLOOD ORDERABLES F inal Result Performing Organization Address City/[facility]/ZIP Co de Phone Number [facility] [place] [address] * (ABNORMAL) CBC without differential (01/21/2024 12:55 AM CDT) WBC 8.9 3.8 - 9.9 K/cumm Hgb 8.6(L) 11.9 - 15.5 g/dL [facility] Hct 26.4(L) 35.6 - 45.5 % [facility] Plt 132(L) 150 - 400 K/cumm [facility] MPV 11.0 9.1 - 12.3 fL [facility] RBC 2.88(L) 3.90 - 5.20 M/cumm [facility] MCV 91.7 81.3 - 96.4 fL [facility] MCH 29.9 27.1 - 33.3 pg [facility] MCHC 32.6 32.3 - 35.7 g/dL [facility] RDW CV 13.3 11.1 - 14.9 % [facility] RDW SD 44.6 35.7 - 48.1 fL [facility] NRBC abs 0.00 0.00 - 0.01 K/cumm [facility] Blood 01/21/2024 12:5 5 AM CDT 01/21/2024 1:14 AM CDT Cinthia BATISTA LAB BLOOD ORDERABLES F inal Result Performing Organization Address City/[facility]/ZIP Co de Phone Number [facility] [place] [address] * XR Chest 1 View - in [...] LAB POCT ORDERABLES - DEVICE Final Result [facility] [place] [address] * XR Chest 1 View (01/20/2024 7:10 [...] tube placement. COMPARISON: CT 12/12/2023 Procedure Note lEma Brady MD - 01/21/2024 EXAMINATION: Abdomen, one [...] wires overlie the mediastinum. Dictated by: Jamie Mahcuca M.D. The radiology attending physician has personally [...] plan with the ICU team and other medical/it architecture consultant staff, making frequent assessments and decisions [...] * POCT glucose (01/20/2024 6:06 PM CDT) [facility] Glucose, POC 106 70 - 199 mg/dL Blood 01/20/2024 6:06 PM CDT 01/20/2024 6:06 PM CDT Stan Treviño MD LAB POCT ORDERABLES - DEVICE Final Result [facility] [place] [address] * ECG 12 lead (01/20/2024 5:04 PM CDT) [facility] Ventricular Rate EKG/Min 94 BPM [facility] Atrial Rate 94 BPM [facility] FL-Interval (MSEC) 140 ms [facility] QRS-Interval (MSEC) 122 ms [facility] QT-Interval (MSEC) 412 ms [facility] QTc 515 ms [facility] P [place] 73 degrees [facility] R [place] -61 degrees [facility] T [place] 38 degrees [facility] Diagnosis Normal sinus rhythm Right bundle branch block Left anterior fascicular block Bifascicular block Abnormal ECG Confirmed by Anu CLARK [facility] ([id number]) on 01/22/2024 12:20:57 AM [facility] 01/20/2024 5:04 PM CDT 01/22/2024 12:20 AM CDT Stan Treviño MD ECG ORDERABLES Final Result [facility] * Triglycerides (01/20/2024 4:52 PM CDT) Triglycerides [...] Final Re sult Performing Organization Address [facility]/ZIP Co de Phone Number [facility] [place] [address] * eGFR (01/20/2024 4:52 PM CDT) [facility] eGFR 64 >=60 mL/min/1. 73 m2 Comment: [...] ORDERABLES F inal Result Performing Organization Address City/[facility]/ZIP Co de Phone Number [facility] [place] [address] * aPTT (01/20/2024 4:52 PM CDT) Pathologist [...] Final Re sult Performing Organization Address [facility] de Phone Number [facility] [place] [address] * (ABNORMAL) Protime-INR (01/20/2024 4:52 PM CDT) [facility] PT 13.3(H) 9.7 - 13.0 sec INR 1.23(H) 0.90 - 1.20 [facility] Comment: Interpretive data Oral anticoagulant therapeutic ranges: Venous thromboembolism prophylaxis or treatment: 2.0-3.0 CARDIOLOGY Standard range: 2.0-3.0 High-intensity range: 2.5-3.5 Refer to indication-specific guidelines for appropriate target ranges for prosthetic heart valve replacement. Current interpretive data was last revised on 2019. Blood 01/20/2024 4:52 PM CDT 01/20/2024 5:25 PM CDT Stan Treviño MD LAB BLOOD ORDERABLES Final Re sult Performing Organization Address City/[facility] Co de Phone Number [facility] [place] [address] * (ABNORMAL) CBC without differential (01/20/2024 4:52 PM CDT) Pathologist [facility] WBC 8.7 3.8 - 9.9 K/cumm Hgb 8.7(L) 11.9 - 15.5 g/dL [facility] Hct 26.5(L) 35.6 - 45.5 % [facility] Plt 143(L) 150 - 400 K/cumm [facility] MPV 11.1 9.1 - 12.3 fL [facility] RBC 2.98(L) 3.90 - 5.20 M/cumm [facility] MCV 88.9 81.3 - 96.4 fL [facility] MCH 29.2 27.1 - 33.3 pg [facility] MCHC 32.8 32.3 - 35.7 g/dL [facility] RDW CV 13.2 11.1 - 14.9 % [facility] RDW SD 42.7 35.7 - 48.1 fL [facility] NRBC abs 0.00 0.00 - 0.01 K/cumm [facility] Blood 01/20/2024 4:52 PM CDT 01/20/2024 5:14 PM CDT Stan Treviño MD LAB BLOOD ORDERABLES Final Re sult [facility] [place] [address] * (ABNORMAL) Magnesium (01/20/2024 4:52 PM CDT) Pathologist [facility] Magnesium 2.7(H) 1.4 - 2.5 mg/dL Blood 01/20/2024 4:52 PM CDT 01/20/2024 5:20 PM CDT us Cinthia BATISTA LAB BLOOD ORDERABLES F inal Result [facility] [place] [address] * (ABNORMAL) Basic metabolic panel (01/20/2024 4:52 PM CDT) Sodium 147(H) 135 - 145 mmol/L Potassium, pl 3.8 3.3 - 4.9 mmol/L [facility] Chloride 114(H) 97 - 110 mmol/L [facility] CO2 23 22 - 32 mmol/L [facility] Anion gap 10 2 - 15 mmol/L [facility] BUN 28(H) 6 - 25 mg/dL [facility] Creatinine 0.94 0.60 - 1.10 mg/dL [facility] Glucose 107 70 - 199 mg/dL [facility] Comment: Interpretive Data Fasting glucose >/= 126 [...] 2022. Calcium 9.2 8.5 - 10.3 mg/dL [facility] Blood 01/20/2024 4:52 PM CDT 01/20/2024 5:20 PM CDT Cinthia BATISTA LAB BLOOD ORDERABLES F inal Result Performing Organization Address City/[facility]/ZIP Co de Phone Number [facility] [place] [address] * (ABNORMAL) Phosphorus (01/20/2024 4:52 PM CDT) Pathologist [facility] Phosphorus, pl 1.8(L) 2.3 - 4.5 mg/dL Blood 01/20/2024 4:52 PM CDT 01/20/2024 5:20 PM CDT Cinthia BATISTA LAB BLOOD ORDERABLES F inal Result [facility] [place] [address] * Critical Care (01/20/2024 4:47 PM CDT) [...] plan with the ICU team and other medical/it architecture consultant staff, making frequent assessments and decisions [...] Chemistries, Arterial - (01/20/2024 4:43 PM CDT) [facility] pH, Art POC 7.40 7.35 - 7.45 pCO2, Art POC 33(L) 35 - 45 mmHg [facility] pO2, Art POC 116(H) 83 - 108 mmHg [facility] Na, POC 145 135 - 145 mmol/L [facility] K POC 3.6 3.3 - 4.9 mmol/L [facility] Comment: Interpretive Data Not all point of care methods assess for hemolysis. Confirm with instrument and retest K+ if not consistent with clinical signs and symptoms. Current Interpretive Data was last revised on 2023. Cl, POC 118(H) 97 - 110 mmol/L [facility] Ionized Ca, POC 5.08 4.50 - 5.10 mg/dL [facility] Glucose, POC 104 70 - 199 mg/dL [facility] Lactate, POC 1.0 0.7 - 2.2 mmol/L [facility] SO2 (kristy) arterial 100(H) 90 - 95 % [facility] Base excess, POC -3.8 mmol/L [facility] HCO3, Art POC 20 20 - 30 mmol/L [facility] Hct, POC 27.0(L) 36.3 - 45.3 % [facility] Total Hb, POC 9.1(L) 11.9 - 15.5 g/dL [facility] Blood 01/20/2024 4:43 PM CDT 01/20/2024 4:43 PM CDT Stan Treviño MD LAB POCT ORDERABLES - DEVICE Final Result [facility] [place] [address] * XR Chest 1 View (01/20/2024 3:15 [...] Hematocrit POC 24.5(L) 35.6 - 45.5 % [facility] Platelet POC 122(L) 150 - 400 K/cumm [facility] Blood 01/20/2024 2:56 PM CDT 01/20/2024 2:56 PM CDT us Stan Treviño MD LAB POCT ORDERABLES - DEVICE Final Result Performing Organization Address City/[facility]/ZIP Co de Phone Number [facility] [place] [address] * (ABNORMAL) POC Blood Gas and Chemistries, Arterial - (01/20/2024 2:17 PM CDT) pH, Art POC 7.36 7.35 - 7.45 pCO2, Art POC 37 35 - 45 mmHg [facility] pO2, Art POC 282(H) 83 - 108 mmHg [facility] Na, POC 145 135 - 145 mmol/L [facility] K POC 4.0 3.3 - 4.9 mmol/L [facility] Comment: Interpretive Data Not all point of care methods assess for hemolysis. Confirm with instrument and retest K+ if not consistent with clinical signs and symptoms. Current Interpretive Data was last revised on 2023. Cl, POC 117(H) 97 - 110 mmol/L [facility] Ionized Ca, POC 5.75(H) 4.50 - 5.10 mg/dL [facility] Glucose, POC 164 70 - 199 mg/dL [facility] Lactate, POC 1.4 0.7 - 2.2 mmol/L [facility] SO2 (kristy) arterial 100(H) 90 - 95 % [facility] Base excess, POC -4.2 mmol/L [facility] HCO3, Art POC 22 20 - 30 mmol/L [facility] Hct, POC 18.0(L) 36.3 - 45.3 % [facility] Total Hb, POC 6.0(L) 11.9 - 15.5 g/dL [facility] Blood 01/20/2024 2:17 PM CDT 01/20/2024 2:17 PM CDT Stan Treviño MD LAB POCT ORDERABLES - DEVICE Final Result [facility] [place] [address] * (ABNORMAL) POCT prothrombin time (01/20/2024 2:16 PM CDT) PT, POC 29.6(H) 11.7 - 16.6 sec INR, POC 2.3(H) 0.9 - 1.3 [facility] Blood 01/20/2024 2:16 PM CDT 01/20/2024 2:16 PM CDT Stan Treviño MD LAB POCT ORDERABLES - DEVICE Final Result Performing Organization Address [facility] de Phone Number [facility] [place] [address] * (ABNORMAL) POCT Partial thromboplastin time (PTT) (01/20/2024 2:15 PM CDT) [facility] APTT, POC 22.2(L) 32.5 - 46.1 sec Blood 01/20/2024 2:15 PM CDT 01/20/2024 2:15 PM CDT Stan Treviño MD LAB POCT ORDERABLES - DEVICE Final Result Performing Organization Address [facility] de Phone Number [facility] [place] [address] * (ABNORMAL) POCT hemoglobin, hematocrit and platelet count (01/20/2024 2:13 PM CDT) Hgb, POC 8.0(L) 11.9 - 15.5 g/dL Hematocrit POC 24.1(L) 35.6 - 45.5 % [facility] Platelet POC 102(L) 150 - 400 K/cumm [facility] Blood 01/20/2024 2:13 PM CDT 01/20/2024 2:13 PM CDT Stan Treviño MD LAB POCT ORDERABLES - DEVICE Final Result Performing Organization Address City/[facility]/ZIP Co de Phone Number [facility] [place] [address] * POCT heparin/ACT CPB (01/20/2024 2:11 PM CDT) [facility] Signature Heparin POC 0.0 units/mL ACT, CPB 112 112 - 174 sec [facility] Blood 01/20/2024 2:11 PM CDT 01/20/2024 2:11 PM CDT Stan Treviño MD LAB POCT ORDERABLES - DEVICE Final Result Performing Organization Address [facility] [place] [address] * (ABNORMAL) POCT heparin/ACT CPB (01/20/2024 1:45 PM CDT) [facility] Heparin POC >4.7 units/mL ACT, CPB 603(H) 112 - 174 sec [facility] Blood 01/20/2024 1:45 PM CDT 01/22/2024 8:07 AM CDT Stan Treviño MD LAB POCT ORDERABLES - DEVICE Final Result Performing Organization Address [facility] Co de Phone Number [facility] [place] [address] * (ABNORMAL) POC Blood Gas and Chemistries, Arterial - (01/20/2024 1:44 PM CDT) [facility] Signature pH, Art POC 7.41 7.35 - 7.45 pCO2, Art POC 34(L) 35 - 45 mmHg [facility] pO2, Art POC 249(H) 83 - 108 mmHg [facility] Na, POC 144 135 - 145 mmol/L [facility] K POC 4.6 3.3 - 4.9 mmol/L [facility] Comment: Interpretive Data Not all point of care methods assess for hemolysis. Confirm with instrument and retest K+ if not consistent with clinical signs and symptoms. Current Interpretive Data was last revised on 2023. Cl, POC 116(H) 97 - 110 mmol/L [facility] Ionized Ca, POC 4.58 4.50 - 5.10 mg/dL [facility] Glucose, POC 169 70 - 199 mg/dL [facility] Lactate, POC 1.4 0.7 - 2.2 mmol/L [facility] SO2 (kristy) arterial 99(H) 90 - 95 % [facility] Base excess, POC -2.7 mmol/L [facility] HCO3, Art POC 22 20 - 30 mmol/L [facility] Hct, POC 24.0(L) 36.3 - 45.3 % [facility] Total Hb, POC 7.9(L) 11.9 - 15.5 g/dL [facility] Blood 01/20/2024 1:44 PM CDT 01/20/2024 1:44 PM CDT Stan Treviño MD LAB POCT ORDERABLES - DEVICE Final Result Performing Organization Address City/[facility]/ZIP Co de Phone Number [facility] [place] [address] * (ABNORMAL) POCT heparin/ACT CPB (01/20/2024 1:16 PM CDT) Heparin POC >4.7 units/mL ACT, CPB 603(H) 112 - 174 sec [facility] Blood 01/20/2024 1:16 PM CDT 01/22/2024 8:07 AM CDT Stan Treviño MD LAB POCT ORDERABLES - DEVICE Final Result [facility] [place] [address] * (ABNORMAL) POC Blood Gas and Chemistries, Arterial - (01/20/2024 1:15 PM CDT) pH, Art POC 7.40 7.35 - 7.45 pCO2, Art POC 31(L) 35 - 45 mmHg [facility] pO2, Art POC 207(H) 83 - 108 mmHg [facility] Na, POC 143 135 - 145 mmol/L [facility] K POC 4.7 3.3 - 4.9 mmol/L [facility] Comment: Interpretive Data Not all point of care methods assess for hemolysis. Confirm with instrument and retest K+ if not consistent with clinical signs and symptoms. Current Interpretive Data was last revised on 2023. Cl, POC 116(H) 97 - 110 mmol/L [facility] Ionized Ca, POC 4.68 4.50 - 5.10 mg/dL [facility] Glucose, POC 184 70 - 199 mg/dL [facility] Lactate, POC 1.3 0.7 - 2.2 mmol/L [facility] SO2 (kristy) arterial 99(H) 90 - 95 % [facility] Base excess, POC -4.9 mmol/L [facility] HCO3, Art POC 19(L) 20 - 30 mmol/L [facility] Hct, POC 25.0(L) 36.3 - 45.3 % [facility] Total Hb, POC 8.4(L) 11.9 - 15.5 g/dL [facility] Blood 01/20/2024 1:15 PM CDT 01/20/2024 1:15 PM CDT Stan Treviño MD LAB POCT ORDERABLES - DEVICE Final Result [facility] [place] [address] * (ABNORMAL) POC Blood Gas and Chemistries, Arterial - (01/20/2024 12:50 PM CDT) pH, Art POC 7.29(L) 7.35 - 7.45 pCO2, Art POC 43 35 - 45 mmHg [facility] pO2, Art POC 232(H) 83 - 108 mmHg [facility] Na, POC 143 135 - 145 mmol/L [facility] K POC 4.5 3.3 - 4.9 mmol/L [facility] Comment: Interpretive Data Not all point of care methods assess for hemolysis. Confirm with instrument and retest K+ if not consistent with clinical signs and symptoms. Current Interpretive Data was last revised on 2023. Cl, POC 115(H) 97 - 110 mmol/L [facility] Ionized Ca, POC 4.80 4.50 - 5.10 mg/dL [facility] Glucose, POC 183 70 - 199 mg/dL [facility] Lactate, POC 1.2 0.7 - 2.2 mmol/L [facility] SO2 (kristy) arterial 99(H) 90 - 95 % [facility] Base excess, POC -5.5 mmol/L [facility] HCO3, Art POC 21 20 - 30 mmol/L [facility] Hct, POC 26.0(L) 36.3 - 45.3 % [facility] Total Hb, POC 8.5(L) 11.9 - 15.5 g/dL [facility] Blood 01/20/2024 12:5 0 PM CDT 01/20/2024 12:50 PM CDT Stan Treviño MD LAB POCT ORDERABLES - DEVICE Final Result Performing Organization Address [facility]/ZIP Co de Phone Number [facility] [place] [address] * (ABNORMAL) POCT heparin/ACT CPB (01/20/2024 12:48 PM CDT) Heparin POC 2.7 units/mL ACT, CPB 718(H) 112 - 174 sec [facility] Blood 01/20/2024 12:4 8 PM CDT 01/20/2024 12:48 PM CDT Stan Treviño MD LAB POCT ORDERABLES - DEVICE Final Result Performing Organization Address City/[facility]/ZIP Co de Phone Number [facility] [place] [address] * (ABNORMAL) POCT heparin/ACT CPB (01/20/2024 12:16 PM CDT) Heparin POC 4.1 units/mL ACT, CPB 559(H) 112 - 174 sec [facility] Blood 01/20/2024 12:1 6 PM CDT 01/20/2024 12:16 PM CDT us Stan Treviño MD LAB POCT ORDERABLES - DEVICE Final Result [facility] [place] [address] * (ABNORMAL) POC Blood Gas and Chemistries, Arterial - (01/20/2024 12:16 PM CDT) pH, Art POC 7.34(L) 7.35 - 7.45 pCO2, Art POC 40 35 - 45 mmHg [facility] pO2, Art POC 252(H) 83 - 108 mmHg [facility] Na, POC 143 135 - 145 mmol/L [facility] K POC 4.4 3.3 - 4.9 mmol/L [facility] Comment: Interpretive Data Not all point of care methods assess for hemolysis. Confirm with instrument and retest K+ if not consistent with clinical signs and symptoms. Current Interpretive Data was last revised on 2023. Cl, POC 114(H) 97 - 110 mmol/L [facility] Ionized Ca, POC 4.52 4.50 - 5.10 mg/dL [facility] Glucose, POC 199 70 - 199 mg/dL [facility] Lactate, POC 0.9 0.7 - 2.2 mmol/L [facility] SO2 (kristy) arterial 100(H) 90 - 95 % [facility] Base excess, POC -3.9 mmol/L [facility] HCO3, Art POC 22 20 - 30 mmol/L [facility] Hct, POC 26.0(L) 36.3 - 45.3 % [facility] Total Hb, POC 8.5(L) 11.9 - 15.5 g/dL [facility] Blood 01/20/2024 12:1 6 PM CDT 01/20/2024 12:16 PM CDT Stan Treviño MD LAB POCT ORDERABLES - DEVICE Final Result Performing Organization Address City/[facility] Co de Phone Number [facility] [place] [address] * (ABNORMAL) POCT heparin/ACT CPB (01/20/2024 11:47 AM CDT) Heparin POC >4.7 units/mL ACT, CPB 733(H) 112 - 174 sec [facility] Blood 01/20/2024 11:4 7 AM CDT 01/22/2024 8:07 AM CDT Stan Treviño MD LAB POCT ORDERABLES - DEVICE Final Result Performing Organization Address [facility] [place] [address] * (ABNORMAL) POC Blood Gas and Chemistries, Arterial - (01/20/2024 11:46 AM CDT) pH, Art POC 7.28(L) 7.35 - 7.45 pCO2, Art POC 35 35 - 45 mmHg [facility] pO2, Art POC 310(H) 83 - 108 mmHg [facility] Na, POC 142 135 - 145 mmol/L [facility] K POC 4.4 3.3 - 4.9 mmol/L [facility] Comment: Interpretive Data Not all point of care methods assess for hemolysis. Confirm with instrument and retest K+ if not consistent with clinical signs and symptoms. Current Interpretive Data was last revised on 2023. Cl, POC 111(H) 97 - 110 mmol/L [facility] Ionized Ca, POC 4.06(L) 4.50 - 5.10 mg/dL [facility] Glucose, POC 183 70 - 199 mg/dL [facility] Lactate, POC 0.8 0.7 - 2.2 mmol/L [facility] SO2 (kristy) arterial 100(H) 90 - 95 % [facility] Base excess, POC -9.5 mmol/L [facility] HCO3, Art POC 18(L) 20 - 30 mmol/L [facility] Hct, POC 26.0(L) 36.3 - 45.3 % [facility] Total Hb, POC 8.8(L) 11.9 - 15.5 g/dL [facility] Blood 01/20/2024 11:4 6 AM CDT 01/20/2024 11:46 AM CDT Stan Treviño MD LAB POCT ORDERABLES - DEVICE Final Result Performing Organization Address [facility] Co de Phone Number [facility] [place] [address] * (ABNORMAL) POCT heparin/ACT CPB (01/20/2024 11:14 AM CDT) Heparin POC 4.1 units/mL ACT, CPB 538(H) 112 - 174 sec [facility] Blood 01/20/2024 11:1 4 AM CDT 01/20/2024 11:14 AM CDT Stan Treviño MD LAB POCT ORDERABLES - DEVICE Final Result Performing Organization Address City/[facility] Co de Phone Number [facility] [place] [address] * POCT heparin dose response, CPB (01/20/2024 9:33 AM CDT) Baseline ACT POC 141 112 - 174 sec Heparin dose response slope POC 83 60 - 195 [facility] Projected Heparin Concentration POC 4.1 units/mL [facility] Blood 01/20/2024 9:33 AM CDT 01/20/2024 9:33 AM CDT Stan Treviño MD LAB POCT ORDERABLES - DEVICE Final Result Performing Organization Address City/[facility]/ZIP Co de Phone Number [facility] [place] [address] * (ABNORMAL) POC Blood Gas and Chemistries, Arterial - (01/20/2024 9:33 AM CDT) pH, Art POC 7.39 7.35 - 7.45 pCO2, Art POC 32(L) 35 - 45 mmHg [facility] pO2, Art POC 342(H) 83 - 108 mmHg [facility] Na, POC 141 135 - 145 mmol/L [facility] K POC 3.7 3.3 - 4.9 mmol/L [facility] Comment: Interpretive Data Not all point of care methods assess for hemolysis. Confirm with instrument and retest K+ if not consistent with clinical signs and symptoms. Current Interpretive Data was last revised on 2023. Cl, POC 113(H) 97 - 110 mmol/L [facility] Ionized Ca, POC 4.83 4.50 - 5.10 mg/dL [facility] Glucose, POC 146 70 - 199 mg/dL [facility] Lactate, POC 1.0 0.7 - 2.2 mmol/L [facility] SO2 (kristy) arterial 100(H) 90 - 95 % [facility] Base excess, POC -4.8 mmol/L [facility] HCO3, Art POC 21 20 - 30 mmol/L [facility] Hct, POC 33.0(L) 36.3 - 45.3 % [facility] Total Hb, POC 11.0(L) 11.9 - 15.5 g/dL [facility] Blood 01/20/2024 9:33 AM CDT 01/20/2024 9:33 AM CDT Stan Treviño MD LAB POCT ORDERABLES - DEVICE Final Result [facility] [place] [address] * JULIANO Add-On For OR (01/20/2024 8:24 AM CDT) Narrative [facility] PROSOLV_[email or web address] SCIMAGE - 01/20/2024 8:24 AM CDT Procedure Auto Finalized by Rule: BW CV JULIANO DURING CASE OR Please see the Anesthesiologist's Procedure Note for the results. us Diogo Smith MD CV ECHO PROCEDURES Final Result Performing Organization Address [facility]/ZIP Co de Phone Number [facility] PROSOLV_[email or web address] SCIMAGE * POCT glucose (01/20/2024 6:55 AM CDT) Glucose, POC 147 70 - 199 mg/dL Blood 01/20/2024 6:55 AM CDT 01/20/2024 6:55 AM CDT us Stan Treviño MD LAB POCT ORDERABLES - DEVICE Final Result Performing Organization Address City/[facility]/ZIP Co de Phone Number [facility] [place] [address] * Prepare RBC: 4 Units (01/20/2024 6:24 AM CDT) Product code [id number] [facility] Unit Number [id number] 6-E [facility] Product Blood Type APOS [facility] Dispense Status RETURNED [facility] Product code [id number] [facility] Unit Number [id number] 2-5 [facility] Product Blood Type APOS [facility] Dispense Status RETURNED [facility] Product code [id number] Unit Number [id number] 1-X [facility] Product Blood Type APOS [facility] Dispense Status RETURNED [facility] Product code [id number] [facility] Unit Number [id number] 7-H [facility] Product Blood Type APOS [facility] Dispense Status RETURNED [facility] Blood 01/20/2024 6:24 AM CDT 01/20/2024 6:23 AM CDT Narrative JORGE CRANE - 01/20/2024 4:29 PM CDT Specify Procedure:->CABG Are special requirements needed? (All products are leukoreduced and CMV- safe)- >No Date required:-[id number] LRRBC # [id number] Reasons:-Hold for procedure (specify procedure)} Aruna Land NP BLOOD BANK PRODUCT ORDERABLES Final Result [facility] [place] [address] documented in this encounter Visit Diagnoses Diagnosis Coronary artery disease- Primary Coronary atherosclerosis of unspecified type of vessel, [place] or graft Coronary artery disease of [place] artery of [place] heart with stable angina pectoris ([facility]) CAD, multiple vessel Type 2 diabetes mellitus ([facility]) 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, with long-term current use of insulin, unspecified laterality ([facility]) S/P CABG x 3 Postsurgical aortocoronary bypass status ABLA (acute blood loss anemia) Leucocytosis Leukocytosis, unspecified Obesity Obesity, unspecified Thrombocytopenia ([facility]) Unspecified thrombocytopenia DM2 (diabetes mellitus, type 2) ([facility]) AF (paroxysmal atrial fibrillation) ([facility]/H[facility]) ([facility]) Atrial fibrillation documented in this encounter Admitting Diagnoses Diagnosis Coronary artery disease Coronary atherosclerosis of unspecified type of vessel, [place] or graft Coronary artery disease due to [...] Katharine Finney RN)2045 (Not Given - Provider: Camrita Eden RN - Reason: Patient/family refused) 0838 [...] diarrhea., Indications: constipation 0828 (Given - Provider: Mairon Aaron)2110 (Not Given - Provider: Carmita Eden [...] Surveillance for admission to 73Kamryn Tolbert RN [facility] 01/21/2024 01/21/2024 02/04/2024 3:05 AM C AAMIR documented as of this encounter Care Teams Mime Artist Relationship Specialty Start Date End Date Elpidio Serrato MD PCP - General Internal Medicine 06/09/18 documented as of this encounter
--- OUTSIDE RECORDS SUMMARY | 2024-05-20 07:54 | XMS_ITS | Encounter Summary ---
Author Organization [facility] Healthcare Address [address] [facility] [place] [address] Care Team Providers Care Director Of Hotel Name Role Phone Elpidio Serrato MD Primary Care Provider [phone] Reason for Visit * Auth/Cert (Routine) Specialty Diagnoses / Procedures Referred By Contac t Referred To Contact Diagnoses Coronary artery disease, unspecified vessel or lesion type, unspecified whether angina present, unspecified whether [place] or transplanted heart Coronary artery disease, unspecified vessel or lesion type, unspecified whether angina present, unspecified whether [place] or transplanted heart [I25.10] Procedures HI CABG W/ARTERIAL GRAFT THREE ARTERIAL GRAFTS HI NDSC SURG W/VIDEO-ASSISTED HARVEST VEIN CABG 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 x3 AGOSTO VEIN 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 Referral ID Status Reason Start Date Expiration Date Visits Re quested Visits Authorized [id number] 1 1 Encounter Details Date Type Department Care Team (Late st Contact Info) Description 01/20/2024 8:00 AM CDT - 01/20/2024 4:55 PM CDT Surgery [facility] Operating Room 1 [place] [address] Stan Treviño MD [id number] [place] [address] 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 X3 USING AGOSTO AND LEFT & RIGHT SAPHENOUS ENDOVEIN HARVEST Surgery Details Date/Time Status Location OR Service Patient Class Case Class Case Type Trauma Case? 01/20/2024 8:00 AM Posted [facility] OR POD 3 309 Cardiothoracic Surgery Admit [...] file Legal Sex Female 3:59 AM VISUAL C DEVELOPER Gender Identity Female 05/13/2021 4:21 PM VISUAL C DEVELOPER Sexual Orientation Not on file documented [...] Care Physician at Discharge: Elpidio Serrato MD [phone] Admission Date: 01/20/2024 Discharge Date: 01/28/2024 Admission Location: [facility] Primary Discharge Diagnosis: 1. On [...] Active Problems: DM2 (diabetes mellitus, type 2) ([facility]) Obesity ABLA (acute blood loss anemia) AF (paroxysmal atrial fibrillation) ([facility]/HCC) ([facility]) Resolved Problems: Leucocytosis Thrombocytopenia ([facility]) DETAILS OF HOSPITAL STAY Presenting Problem/History of Present Illness: 73 y.o. yo female w/ PMHx of HTN, HLD< CAD, mild MR, anemia, CKD, DM type II ( Hgb A1c 5.9), hypothyroidism, and chronic knee pain. He was found to have multivessel diease on [facility] and is being seenby CTS for [...] prior to transfer to the Rehab facility ([facility]) Active Issues Requiring Follow-up: Continue PT/OT at the rehab center until able to discharge to home. Will need to call for appt with Dr Treviño if not already scheduled - office number is [phone]. Operative Procedures Performed: Procedure(s): CORONARY ARTERY BYPASS [...] Your Medications These medications were sent to [facility] AT Portal to Registered [facility] [address] empagliflozin 10 mg tablet insulin lispro 100 [...] Comment s Discharge to an Rehab facility [facility] ([place], [place]) documented in this encounter Progress Notes * Christy Limon RN - 01/28/2024 12:58 PM CDT 01/22/24 1312 Discharge Summary Discharge Disposition Acute Rehab Specify Facility [facility] Facility Contact Number [phone] Bowie Discharge Records Transfer Form Completed;Chart Copied Recommended Discharge Level of Care Acute Rehab Actual Discharge Level of Care Acute Rehab Does Actual Level of Care Match Care Team Recommendation? Yes Post Acute Care Plan Post Acute Care Facility Yes Referral Status Accepted Accepted Post Acute Care Location and Contact [facility] Accepted Post Acute Care Discharge Additional [...] not assigned to this patient, please call [phone]. 01/27/24 6031 General Session Type Treatment OT Received On [...] none Interval History: Working on transfer to [facility], still with hypoglycemic events, reduced insulins again. Plan for d/c tomorrow to [facility], blood sugars should be stable at that [...] hours: ASSESSMENT/PLAN AF (paroxysmal atrial fibrillation) (CMS/HCC) ([facility]) Assessment & Plan Short episode of [...] bariatric equipment DM2 (diabetes mellitus, type 2) ([facility]) Assessment & Plan - Hemoglobin A1c [...] diabetes mellitus with hyperlipidemia ([facility]) 12/07/2016 Last A1C 5.9%, without complication Vitamin D deficiency 04/01/2019 Past Surgical History: Procedure Laterality Date CATARACT EXTRACTION Right 06/14/2022 CE/IOL + goniotomy HI APPENDECTOMY unkown dates per pt HI DELIVERY ONLY Section - in 1972 and 1975 (Added by TW Conv) HI TENDON SHEATH INCISION Hand Incision Tendon Sheath [...] Carbohydrate Diet effective now Question Answer Comment ([facility]) Diet type Restricted Fat / Sodium Restriction: Low Fat, Low Chol Diabetic: Consistent Carbohydrate 01/21/24 1345 Assessment / Impression: The pt states her appetite has been improving since surgery. She is oyfzli19% of her meals. She is no longer drinking the Glucerna shakes. Order cancelled. Last BM 01/26. Awaiting rehab bed. [address] [phone] * Eloisa Freeman NP - 01/26/2024 1:26 PM CDT Cardiac Surgery Daily Progress 01/19: s/p CABG x3 SUBJECTIVE Chief complaint: none Interval History: hypoglycemic x 2 - decreased the lantus today. Remains in NSR. Planning for [facility]IS[facility] at [place] OBJECTIVE Current Facility-Administered Medications: acetaminophen (TYLENOL) tablet 1,000 mg, 1,000 mg, feeding tube, Q6H LAMONTEDivya Abbey Nicole, PA, 1,000 mg at 01/26/24 0434 [START ON 01/31/2024] amiodarone (PACERONE) tablet 200 mg, 200 mg, oral, BID, Marisela Russell, COMPUTER GAME PROGRAMMER [START ON 02/03/2024] amiodarone (PACERONE) tablet 200 mg, 200 mg, oral, Daily, Marisela Russell, COMPUTER GAME PROGRAMMER amiodarone (PACERONE) tablet 400 mg, 400 mg, oral, TID, StMarisela hollis, COMPUTER GAME PROGRAMMER, 400 mg at 01/26/24 0827 [START ON [...] bariatric equipment DM2 (diabetes mellitus, type 2) ([facility]) Assessment & Plan - Hemoglobin A1c [...] treatment team and contact the PT or BASTER HAND currently assigned to this patient. If a physical therapy clinician is not assigned to this patient, please call [phone]. Multi-Disciplinary Problems (from Physical Therapy) Active Problems [...] mg, 200 mg, oral, BID, Marisela Russell, COMPUTER GAME PROGRAMMER [START ON 02/03/2024] amiodarone (PACERONE) tablet 200 mg, 200 mg, oral, Daily, Marisela Russell, JAMES amiodarone (PACERONE) tablet 400 mg, 400 mg, oral, TID, Marisela Russell, COMPUTER GAME PROGRAMMER [START ON 01/28/2024] amiodarone (PACERONE) tablet 400 [...] bariatric equipment DM2 (diabetes mellitus, type 2) ([facility]) Assessment & Plan - Hemoglobin A1c [...] 1,000 mg, feeding tube, Q6H [facility], Cinthia Stokes PA, 1,000 mg at 01/24/24 [...] caloric restriction DM2 (diabetes mellitus, type 2) ([facility]) Assessment & Plan - Hemoglobin A1c [...] treatment team and contact the PT or BASTER HAND currently assigned to this patient. If a physical therapy clinician is not assigned to this patient, please call [phone]. 01/24/24 1001 PT Last Visit Session Type [...] independence with functional mobility. * Nii Garces, COMPUTER GAME PROGRAMMER - 01/23/2024 4:46 PM CDT Cardiac Surgery [...] 75 mg, 75 mg, oral, Daily, Cinthia Stkoes PA, 75 mg at 01/23/24 1005 dextrose [...] not assigned to this patient, please call [phone]. 01/23/24 0910 General Session Type Treatment OT [...] 1,000 mg, feeding tube, Q6H [facility], Cinthia Stokes PA, 1,000 mg at 01/22/24 [...] treatment team and contact the PT or BASTER HAND currently assigned to this patient. If a physical therapy clinician is not assigned to this patient, please call [phone]. Multi-Disciplinary Problems (from Physical Therapy) Active Problems [...] better Prior Function Prior Function Level of [place]: Independent with ADLs, Independent functional transfers, Independent [...] not assigned to this patient, please call [phone]. 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) Surgical [...] plan with the ICU team and other medical/therapeutic consultant staff, making frequent assessments and decisions [...] Care Post-Procedure Diagnose(s): 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) Surgical [...] #ACS: chronic - (01/16) s/p CABG x3 (AGOTSO>LAD, vein>OM, vein>PDA) TONY clip, and sternal plating [...] a-line (01/19), R axillary a-line (01/19), RIJ [place] (01/19), PIV x2 Goals of care: Full [...] plan with the ICU team and other medical/therapeutic consultant staff, making frequent assessments and decisions [...] CATARACT EXTRACTION Right 06/14/2022 CE/IOL + goniotomy HI APPENDECTOMY unkown dates per pt HI DELIVERY ONLY Section - in 1972 and 1975 (Added by TW Conv) HI TENDON SHEATH INCISION Hand Incision Tendon Sheath [...] AM Result Value Ref Range Product code M4686K56 Unit Number [id number] Product Blood Type APOS Dispense Status RETURNED Product code Z4791I85 Unit Number [id number] Product Blood Type APOS Dispense Status RETURNED Product code L7760R85 Unit Number [id number] Product Blood Type APOS Dispense Status RETURNED Product code H1830Q50 Unit Number [id number] Product Blood Type APOS Dispense Status RETURNED [...] AM Result Value Ref Range Product code S7499A83 Unit Number [id number] Product Blood Type APOS Dispense Status RETURNED Product code D1470F39 Unit Number [id number] Product Blood Type APOS Dispense Status RETURNED Product code I6380I76 Unit Number [id number] Product Blood Type APOS Dispense Status RETURNED Product code T5566I70 Unit Number [id number] Product Blood Type APOS Dispense Status RETURNED [...] plan with the ICU team and other medical/therapeutic consultant staff, making frequent assessments and decisions [...] and Planning Preoperative Evaluation Record Evaluation type/location: [facility] Planned procedure site: [facility] (Pods 2//[facility]) Date: 01/17/24 Anesthesia Evaluation Isabelle Lutz is a 73 y.o. female 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 x3 AGOSTO VEIN (Chest) 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 (Thigh) Pre-Op Diagnosis Codes: * Coronary artery disease, unspecified vessel or lesion type, unspecified whether angina present, unspecified whether otoe-[place]ou[place] or transplanted heart [I25.10] HISTORY HPI 73 [...] Other arrhythmia (RBBB + LAFB) Pertinent negatives: TN ; CABG ; systolic/diastolic dysfunction w/o CHF ; valve replacement; atrialfibrillation; pacemaker/ICD; PVD; DVT/PE; drug-eluting stent(s); bare metal stent(s) and unknown stent(s) type Comments: Dr. Kerns DARLIN 10/04/23. 11/2023 [facility]: Severe multivessel coronary disease with chronic total occlusion of a large RCA, severeheavily calcified disease in the proximal circumflex, diffuse heavily calcified disease in the proximal LAD with a severe lesion in the mid to apical LAD. Respiratory Pertinent negatives: COPD; asthma; sleep apnea (ELÓN); pulmonary hypertension; no O2 use outside thehospital; [...] Other + Diabetes mellitus ([employer]. Managed by manager software development.) - Diabetes type 2. Outpatient insulin use:current. [...] neck. Got some SOB when walking from shore man to CPAP. Starts with SOB then the [...] neck. Got some SOB when walking from shore man to CPAP. Starts with SOB then the [...] artery disease 12/18/2023 Coronary artery disease involving otoe-[place]ouria heart 12/12/2023 Encounter for preprocedural cardiovascular examination [...] CATARACT EXTRACTION Right 06/14/2022 CE/IOL + goniotomy HI APPENDECTOMY unkown dates per pt HI DELIVERY ONLY Section - in 1972 and 1975 (Added by TW Conv) HI TENDON SHEATH INCISION Hand Incision Tendon Sheath [...] Comments: Synus Rhythm Echocardiogram(s): Stress Echo [facility] - 11/15/23 Ejection Fraction: 45-50% LV Global [...] No MS/ mild MR; No TR; No HI. Diastolic Function: Grade I (impaired relaxation) with nl est filling pressures.Unable to estimate PASP d/t inadequate TR jet. Stress test(s): N/A Cardiac catheterization(s): [facility] - 11/25/23 DIAGNOSTIC IMPRESSION: Severe multivessel [...] Informed consent: Risks, benefits, alternatives discussed and patient/appeals representative/guardian agrees and accepts. Patient's stated name/ [...] Maneuver [x] Sutures secured immediately after removal [][place] sutures removed [] No sutures present Instruction [...] Informed consent: Risks, benefits, alternatives discussed and patient/appeals representative/guardian agrees and accepts. Patient's stated name/ [...] [] Sutures secured immediately after removal [] [place] sutures removed [] No sutures present Instruction [...] Lutz, 73 y.o. female (: 1950) Room: [place] [address] ( ) LOS: 2 Consult Question: diabetes [...] reliability: CKD, anemia Managed by PMD or Screen Printing Paster Dr. Bell Hx of DKA/HHS/Hospitalizations for hypoglycemia: [...] 04/29/2023 Cataract CHF (congestive heart failure) ([facility]/HCC) ([facility]) Clavicle enlargement 06/16/2018 Will image to determine etiology. Coronary artery disease Coronary artery disease due to calcified coronary lesion 01/20/2024 Diabetes mellitus (HCC) Diabetic neuropathy ([facility]) 01/21/2024 Diabetic retinopathy ([facility]) Glaucoma Hypertension Hypothyroidism 11/13/2014 Knee pain 01/04/2015 Multiparity History Of ___ Previous Pregnancies - 7 pregnancies, 2 children - C-sections. (Added by TW Conv) Nonproliferative diabetic retinopathy ([facility]) 11/03/2009 Osteoarthritis of knee 12/16/2007 Personal [...] CATARACT EXTRACTION Right 06/14/2022 CE/IOL + goniotomy HI APPENDECTOMY unkown dates per pt HI DELIVERY ONLY Section - in 1972 and 1975 (Added by TW Conv) HI TENDON SHEATH INCISION Hand Incision Tendon Sheath [...] & Lipid Research Contact Info: New Consults: [phone] (-[phone]) General Endocrine (Non-Diabetes): [phone] (Check 'Treatment Team' assignment for Diabetes 1 vs 2 vs 3) Diabetes 1: Diabetes Fellow: [phone] Diabetes 2: Vanita Ware, COMPUTER GAME PROGRAMMER: [phone] Diabetes 3: See Treatment Team Provider (or [...] Lutz, 73 y.o. female (: 1950) Room: [id number] ( ) LOS: 1 Consult Question: [...] reliability: CKD, anemia Managed by PMD or Screen Printing Paster Dr. Bell Hx of DKA/HHS/Hospitalizations for hypoglycemia: [...] lesion 01/20/2024 Diabetes mellitus (HCC) Diabetic retinopathy ([facility]) Glaucoma Hypertension Hypothyroidism 11/13/2014 Knee pain [...] CATARACT EXTRACTION Right 06/14/2022 CE/IOL + goniotomy HI APPENDECTOMY unkown dates per pt HI DELIVERY ONLY Section - in 1972 and 1975 (Added by TW Conv) HI TENDON SHEATH INCISION Hand Incision Tendon Sheath Of A Finger - right hand, III finger, 08/20 (Added by TATE'S LIST Conv) Social & Family History Social History [...] & Lipid Research Contact Info: New Consults: [phone] (-[phone]) General Endocrine (Non-Diabetes): [phone] (Check 'Treatment Team' assignment for Diabetes 1 vs 2 vs 3) Diabetes 1: Diabetes Fellow: [phone] Diabetes 2: Vanita Ware, COMPUTER GAME PROGRAMMER: [phone] Diabetes 3: See Treatment Team Provider (or [...] PM CDT Report called to Tracy at [facility]. PIVs and tele removed. Discharge packet and education reviewed with patient and family at bedside. All questions answered. Patient ready for discharge. documented in this encounter Miscellaneous Notes * Consults, Subsequent - Vanita Ware NP - 01/28/2024 12:35 PM CDT Endocrinology & Diabetes Inpatient Subsequent Consult Note Patient: Isabelle Lutz, 73 y.o. female (: 1950) Room: [place] [address] ( ) LOS: 8 Isabelle Lutz is [...] yearly or sooner as indicated by your detective private eye Pending results for primary service or primary care physician to follow up on: None at time of discharge Follow Up Plan: [facility] Endocrinology Appointment date: Follow up with Dr. Bell on 03/02/24 at 11:40 AM as scheduled Location: [facility]: [address] [place] [address],[address], [place] [address] Endocrinology clinic number: [phone] -- Vanita Ware NP Endocrinology, Metabolism, & Lipid Research Contact Info: New Endocrinology Diabetes Consults: [phone] General Endocrine (Non-Diabetes): [phone] Treatment Teams: [facility] Endocrinology Diabetes 1: Fellow + Attending [facility] Endocrinology Diabetes 2: Vanita Ware NP at [phone] [facility] Endocrinology Diabetes 3: Marcia Irvin NP at [phone] [facility] Endocrinology Diabetes 4: Jacki Patel NP (/) at [phone] or Leeanne Lincoln NP (//) at [phone] Diabetes After-Hours & Weekends: Diabetes Fellow [phone] or [phone] * Plan of Care - Katharine Finney [...] planning, remain free from falls and injury District Manager Patient Centered Goal for Treatment: safe discharge [...] type, unspecified whether angina present, unspecified whether o[place]e-[place] or transplanted heart [I25.10] Coronary artery disease [...] yearly or sooner as indicated by your detective private eye Pending results for primary service or primary care physician to follow up on: None at time of discharge Follow Up Plan: [facility] Endocrinology Appointment date: Follow up with Dr. Bell on 03/02/24 at 11:40 AM as scheduled Location: [facility]: [address] [place] [address],[address], [place] [address] Endocrinology clinic number: [phone] * Plan of Care - Carmita Eden [...] managment, remain free from falls and injury Longterm Patient Centered Goal for Treatment: safe discharge to home Summary: VSS, pain management plan followed, pt remained free from falls and injury. * Consults, Subsequent - Vanita Ware NP - 01/27/2024 12:32 PM CDT Endocrinology & Diabetes Inpatient Subsequent Consult Note Patient: Isabelle Lutz, 73 y.o. female (: 1950) Room: [place] [address] ( ) LOS: 7 Isabelle Lutz is [...] Research Contact Info: New Endocrinology Diabetes Consults: [phone] General Endocrine (Non-Diabetes): [phone] Treatment Teams: [facility] Endocrinology Diabetes 1: Fellow + Attending [facility] Endocrinology Diabetes 2: Vanita Ware NP at [phone] [facility] Endocrinology Diabetes 3: Marcia Irvin NP at [phone] [facility] Endocrinology Diabetes 4: Jacki Patel NP (/) at [phone] or Leeanne Licnoln NP (//) at [phone] Diabetes After-Hours & Weekends: Diabetes Fellow [phone] or [phone] * Plan of Care - Carmita Eden RN - 01/26/2024 10:48 PM CDT Problem: Respiratory Goal: Achieves optimal ventilation and oxygenation Flowsheets (Taken 01/26/2024 6475) Achieves optimal ventilation and oxygenation: Assess for [...] Lutz, 73 y.o. female (: 1950) Room: [place] [address] [address] ( ) LOS: 6 Isabelle Lutz is [...] reliability: CKD, anemia Managed by PMD or Screen Printing Paster Dr. Bell Hx of DKA/HHS/Hospitalizations for hypoglycemia: [...] [facility] and commented on below. Lab [...] Lutz, 73 y.o. female (: 1950) Room: [place] [address] ( ) LOS: 5 Isabelle Lutz is [...] reliability: CKD, anemia Managed by PMD or Screen Printing Paster Dr. Bell Hx of DKA/HHS/Hospitalizations for hypoglycemia: [...] comfort and safety, monitor labs, sleep hygiene District Manager Patient Centered Goal for Treatment: Return to home Summary: VSS, comfort and safety maintained, labs monitored. * [facility] - 01/24/2024 4:36 [...] Associated Problem(s): DM2 (diabetes mellitus, type 2) ([facility]) - Hemoglobin A1c 5.9 % on [...] Lutz, 73 y.o. female (: 1950) Room: [place] [address] [address] ( ) LOS: 4 Isabelle Lutz is [...] Research Contact Info: New Endocrinology Diabetes Consults: [phone] General Endocrine (Non-Diabetes): [phone] Treatment Teams: [facility] Endocrinology Diabetes 1: Fellow + Attending [facility] Endocrinology Diabetes 2: Vanita Ware NP at [phone] [facility] Endocrinology Diabetes 3: Marcia Irvin NP at [phone] [facility] Endocrinology Diabetes 4: Jacki Patel NP (M/) at [phone] or Leeanne Lincoln NP (//) at [phone] Diabetes After-Hours & Weekends: Diabetes Fellow [phone] or [phone] * Plan of [place] - Sonia Pineda [...] control, bs management, maintain comfort and safety Longterm Patient Centered Goal for Treatment: Return to home Summary: VSS, had multiple BMs, pain controlled with current regimen. * Plan of Eduard Hoffmann - 01/23/2024 6:18 PM CDT Goals: Clinical Goals for the Shift: VSS, pain control, safety throughout shift District Manager Patient Centered Goal for Treatment: Return to [...] was found to have multivessel diease on [facility] and is being seenby CTS for [...] Lutz, 73 y.o. female (: 1950) Room: [place] [id number] ( ) LOS: 3 Isabelle Lutz is [...] today. Voiding without difficulty; passing flatus, last BMbefore surgery. Diet: Adult Diet Restricted; Low Fat, [...] Research Contact Info: New Endocrinology Diabetes Consults: [phone] General Endocrine (Non-Diabetes): [phone] Treatment Teams: [facility] Endocrinology Diabetes 1: Fellow + Attending [facility] Endocrinology Diabetes 2: Vanita Ware NP at [phone] [facility] Endocrinology Diabetes 3: Marcia Irvin NP at [phone] [facility] Endocrinology Diabetes 4: Jacki Patel NP (/) at [phone] or Leeanne Lincoln NP (//) at [phone] Diabetes After-Hours & Weekends: Diabetes Fellow [phone] or [phone] * Plan of Care - Eduard Berger - 01/22/2024 5:28 PM CDT Goals: Clinical Goals for the Shift: VSS, Pain Control, Free from falls and injury, have tubes and wires removed when possible. District Manager Patient Centered Goal for Treatment: D/c home [...] is interested in IRF - discussed choices. Group Sales Manager noted patient has been recommended for Inpatient Rehab by PT/OT. Group Sales Manager proactively initiated a referral to [facility] preferred Inpatient Rehab Facility - [facility]. Group Sales Manager met with the patient/family at bedside to discuss recommendations by therapy and to work on a potential discharge disposition plan. Group Sales Manager provided education to patient/family on the rehabilitation process. Patient reported he/she was interested in placement for rehabilitation. visual display manager provided a list of additional potential Inpatient Rehab Facility choices to patient and family. Patient and family selected the following choices (preference order): [facility] location visual display manager sent out additional referrals via ECIN. CM awaiting acceptance from an Inpatient RehabFacility and will continue to work on discharge planning with patient and family. Primary Source of Transportation: Does the patient need discharge transport arranged?: Yes (to be determined EMS vs Family) Has discharge transport been arranged?: No (01/22/241311) Health Insurance Coverage: Medicare [facility] Federal Prescription Coverage: yes Pharmacy: [facility] - LYNNE [facility] - [facility] AT Portal to Registered [facility] Sites [facility] [place] [id number] [facility]/pharmacy #[id number] [place] [address] [address] [address] Primary Care Provider: Elpidio Serrato MD Prior [...] Collaboration with Patient, Provider, Direct Care Nurse, Manager Personal, and other members of theHealth Care Team to assure needed interventions completed. 2. Return patient to optimal level of self-care post discharge. 3. Group Sales Manager will follow for Discharge Planning - interventions as needed 4. Anticipated level of care at discharge 5. Planned Discharge Disposition Christy Limon RN * Plan of Care - Luis Dos Santos RN - 01/22/2024 6:46 AM CDT Goals: Clinical Goals for the Shift: VSS, Pain Control, Free from falls and injury, have tubes and wires removed when possible. District Manager Patient Centered Goal for Treatment: D/c home [...] Admit Date: 01/20/2024 SURGEON Stan Treviño MD CHIEF HYDROELECTRIC STATION OPERATOR Jeff Alaniz MD ANESTHESIA Diogo Smith MD [...] the ICU in stable but critical condition. IStan, scrubbed and performed all the procedures for [...] MD - Fellow Anesthesiologist: Diogo Smith MD Coconut Candy Maker: Chandrakant Saba MD Automatic Lathe Setter: Gearld Guzman CCP; Jason Kapoor CCP Continuous Improvement Analyst: Ben Hi Continuous Improvement Analyst Relief: Glenna Lambert RN Scrub Relief: Glenna Lambert RN; Germaine Watt ST Scrub: Emmie Ware RN STONE FABRICATOR: Rachelle Rivas RN; Gloria Gannon CRNFA DATE OF SURGERY : 01/20/2024 Preoperative Diagnosis: Pre-op Diagnosis * Coronary artery disease, unspecified vessel or lesion type, unspecified whether angina present, unspecified whether o[place]e-[place]ou[place] or transplanted heart [I25.10] Postoperative Diagnosis: Post-op Diagnosis * Coronary artery disease, unspecified vessel or lesion type, unspecified whether angina present, unspecified whether [place] or transplanted heart [I25.10] Procedure(s): Procedure(s) (LRB): [...] Implant Name Type Inv. Item Serial No. Communications Assistant Lot No. LRB No. Used [employer] Suture [place] Draft Cor Knot Pre Loaded Fastener Device Micro Titanium 0 85732 - S0 - [id number] [employer] Suture [place] Draft Cor Knot Pre Loaded Fastener Device Micro Titanium 0 73206 0 SocialKaty [id number] N/A 1 Implanted [employer] Suture [place] Draft Cor Knot Pre Loaded Fastener Device Micro Titanium 0 33990 - S0 - [id number] [employer] Suture [place] Draft Cor Knot Pre Loaded Fastener Device Micro Titanium 0 17883 0 [employer]Katy [id number] N/A 1 Implanted [employer] Suture [place] Draft Cor Knot Pre Loaded Fastener Device Micro Titanium 0 89940 - S0 - [id number] [employer] Suture [place] Draft Cor Knot Pre Loaded Fastener Device Micro Titanium 0 46878 0 [employer]Katy [id number] N/A 1 Implanted [employer] Suture [place] Draft Cor Knot Pre Loaded Fastener Device Micro Titanium 0 71165 - S0 - [id number] [employer] Suture [place] Draft Cor Knot Pre Loaded Fastener Device Micro Titanium 0 90917 0 [employer]Katy [id number] N/A 1 Implanted ATRICURE Device Left Atrial Appendage Malleable Shaft 180 Degree Rotation White Atriclip Flex V 40mm Flexv40 [id number] - [id number] ATRICURE Device Left Atrial Appendage Malleable Shaft 180 Degree Rotation White Atriclip Flex V 40mm Flexv40 ACHV40 Atricure [id number] N/A 1 Implanted [employer] SternaLock 360 Sternal Closure 74-0004 - [id number] [employer] [id number] Sternal Closure 74-0004 [employer] [id number] N/A 1 Implanted [employer] Sternalock Hernan 2.4mm 14mm Self Drill Lock Sternum Cancellous 73-2414 - [id number] [employer] Sternalock Hernan 2.4mm 14mm Self Drill Lock Sternum Cancellous 73-2414 [employer] N/A 12 Implanted [employer] Sternalock Herann 2.4mm 16mm Self Drill Lock Sternum Cancellous 73-2416 - [id number] [employer] Sternalock Hernan 2.4mm 16mm [...] Treviño to screen patient [id number]: LeA[facility] Trial The patient meets all inclusion [...] 6:00 AM CDT 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) POCT [...] 7:09 PM CDT 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) POCT [...] type, unspecified whether angina present, unspecified whether o[place] or transplanted heart ISOLATION LEFT ATRIAL APPENDAGE 01/20/2024 8:04 AM CDT Coronary artery disease, unspecified vessel or lesion type, unspecified whether angina present, unspecified whether o[place] or transplanted heart 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 01/20/2024 8:04 AM CDT Coronary artery disease, unspecified vessel or lesion type, unspecified whether angina present, unspecified whether o[place] or transplanted heart 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 01/20/2024 8:04 AM CDT Coronary artery disease, unspecified vessel or lesion type, unspecified whether angina present, unspecified whether o[place]e-[place]ou[place] or transplanted heart POCT GLUCOSE DEVICE Routine 01/20/2024 6 :55 AM CDT PREPARE RBC Timed 01/20/2024 6:24 AM CDT documented in this encounter Results * POCT glucose (01/28/2024 12:00 PM CDT) Glucose, POC 179 70 - 199 mg/dL Blood 01/28/2024 12:0 0 PM CDT 01/28/2024 12:00 PM CDT Stan Treviño MD LAB POCT ORDERABLES - DEVICE Final Result Performing Organization Address City/[facility] Co de Phone Number [facility] [place] [address] * POCT glucose (01/28/2024 10:38 AM CDT) Glucose, POC 179 70 - 199 mg/dL Blood 01/28/2024 10:3 8 AM CDT 01/28/2024 10:38 AM CDT Stan Treviño MD LAB POCT ORDERABLES - DEVICE Final Result Performing Organization Address [facility] Co de Phone Number [facility] [place] [address] * POCT glucose (01/28/2024 7:52 AM CDT) Glucose, POC 106 70 - 199 mg/dL Blood 01/28/2024 7:52 AM CDT 01/28/2024 7:52 AM CDT Stan Treviño MD LAB POCT ORDERABLES - DEVICE Final Result Performing Organization Address City/[facility] Co de Phone Number [facility] [place] [address] * ECG 12 lead (01/28/2024 4:12 AM CDT) Ventricular Rate EKG/Min 66 BPM [facility] Atrial Rate 66 BPM [facility] HI-Interval (MSEC) 142 ms [facility] QRS-Interval (MSEC) 124 ms [facility] QT-Interval (MSEC) 470 ms [facility] QTc 492 ms [facility] P [place] 52 degrees [facility] R [place] -61 degrees [facility] T [place] 39 degrees [facility] Diagnosis Normal sinus rhythm Right bundle branch block Left anterior fascicular block Bifascicular block Possible Lateral infarct , age undetermined Abnormal ECG When compared with ECG of 27-JAN-2024 05:05, Borderline criteria for Lateral infarct are now Present Confirmed by MAHI RACHEL M.D ([id number]) on 01/28/2024 11:47:23 AM [facility] 01/28/2024 4:12 AM CDT 01/28/2024 11:47 AM CDT us Marisela Russell COMPUTER GAME PROGRAMMER ECG ORDERABLES Final Res ult Performing Organization Address City/[facility]/ZIP Co de Phone Number [facility] * POCT glucose (01/28/2024 1:18 AM CDT) Glucose, POC 119 70 - 199 mg/dL Blood 01/28/2024 1:18 AM CDT 01/28/2024 1:18 AM CDT Stan Treviño MD LAB POCT ORDERABLES - DEVICE Final Result Performing Organization Address [facility] Co de Phone Number [facility] Department [place] [address] * (ABNORMAL) eGFR (01/27/2024 9:03 PM CDT) [...] NP LAB BLOOD ORDERABLES Final R esult [facility] [place] [address] * (ABNORMAL) CBC without differential (01/27/2024 9:03 PM CDT) WBC 7.6 3.8 - 9.9 K/cumm Hgb 7.9(L) 11.9 - 15.5 g/dL [facility] Hct 24.4(L) 35.6 - 45.5 % [facility] Plt 230 150 - 400 K/cumm [facility] MPV 11.0 9.1 - 12.3 fL [facility] RBC 2.69(L) 3.90 - 5.20 M/cumm [facility] MCV 90.7 81.3 - 96.4 fL [facility] MCH 29.4 27.1 - 33.3 pg [facility] MCHC 32.4 32.3 - 35.7 g/dL [facility] RDW CV 14.2 11.1 - 14.9 % [facility] RDW SD 45.8 35.7 - 48.1 fL [facility] NRBC abs 0.00 0.00 - 0.01 K/cumm [facility] Blood 01/27/2024 9:03 PM CDT 01/27/2024 9:35 PM CDT us Nii Garces NP LAB BLOOD ORDERABLES Final R esult [facility] [place] [address] * (ABNORMAL) Basic metabolic panel (01/27/2024 9:03 PM CDT) Sodium 138 135 - 145 mmol/L Potassium, pl 4.4 3.3 - 4.9 mmol/L [facility] Chloride 104 97 - 110 mmol/L [facility] CO2 25 22 - 32 mmol/L [facility] Anion gap 9 2 - 15 mmol/L [facility] BUN 29(H) 6 - 25 mg/dL [facility] Creatinine 1.40(H) 0.60 - 1.10 mg/dL [facility] Glucose 165 70 - 199 mg/dL [facility] Comment: Interpretive Data Fasting glucose [...] 2022. Calcium 8.5 8.5 - 10.3 mg/dL [facility] Blood 01/27/2024 9:03 PM CDT 01/27/2024 9:35 PM CDT Nii Garces NP LAB BLOOD ORDERABLES Final R esult Performing Organization Address [facility] Co de Phone Number [facility] [place] [address] * Phosphorus (01/27/2024 9:03 PM CDT) Phosphorus, pl 3.6 2.3 - 4.5 mg/dL Blood 01/27/2024 9:03 PM CDT 01/27/2024 9:35 PM CDT Nii Garces NP LAB BLOOD ORDERABLES Final R esult Performing Organization Address [facility] de Phone Number [facility] [place] [address] * Magnesium (01/27/2024 9:03 PM CDT) Magnesium 2.0 1.4 - 2.5 mg/dL Blood 01/27/2024 9:03 PM CDT 01/27/2024 9:35 PM CDT Nii Garces NP LAB BLOOD ORDERABLES Final R esult Performing Organization Address [facility] de Phone Number [facility] [place] [address] * (ABNORMAL) POCT glucose (01/27/2024 7:33 PM CDT) Glucose, POC 226(H) 70 - 199 mg/dL Blood 01/27/2024 7:33 PM CDT 01/27/2024 7:33 PM CDT Stan Treviño MD LAB POCT ORDERABLES - DEVICE Final Result Performing Organization Address [facility]/ZIP Co de Phone Number [facility] [place] [address] * POCT glucose (01/27/2024 4:55 PM CDT) Glucose, POC 163 70 - 199 mg/dL Blood 01/27/2024 4:55 PM CDT 01/27/2024 4:55 PM CDT Stan Treviño MD LAB POCT ORDERABLES - DEVICE Final Result Performing Organization Address [facility] [place] [address] * POCT glucose (01/27/2024 11:20 AM CDT) Glucose, POC 127 70 - 199 mg/dL Blood 01/27/2024 11:2 0 AM CDT 01/27/2024 11:20 AM CDT Stan Treviño MD LAB POCT ORDERABLES - DEVICE Final Result Performing Organization Address [facility] [place] [address] * POCT glucose (01/27/2024 8:51 AM CDT) Glucose, POC 106 70 - 199 mg/dL Blood 01/27/2024 8:51 AM CDT 01/27/2024 8:51 AM CDT us Stan Treviño MD LAB POCT ORDERABLES - DEVICE Final Result Performing Organization Address City/[facility]/ZIP Co de Phone Number [facility] [place] [address] * POCT glucose (01/27/2024 7:29 AM CDT) Glucose, POC 107 70 - 199 mg/dL Blood 01/27/2024 7:29 AM CDT 01/27/2024 7:29 AM CDT Stan Treviño MD LAB POCT ORDERABLES - DEVICE Final Result Performing Organization Address City/[facility]/ZIP Co de Phone Number [facility] [place] [address] * ECG 12 lead (01/27/2024 5:05 AM CDT) [facility] Ventricular Rate EKG/Min 80 BPM [facility] Atrial Rate 80 BPM [facility] HI-Interval (MSEC) 136 ms [facility] QRS-Interval (MSEC) 122 ms [facility] QT-Interval (MSEC) 426 ms [facility] QTc 491 ms [facility] P [place] 55 degrees [facility] R [place] -63 degrees [facility] T [place] 38 degrees [facility] Diagnosis Normal sinus rhythm with sinus arrhythmia Right bundle branch block Left anterior fascicular block Bifascicular block Abnormal ECG When compared with ECG of 26-JAN-2024 02:54, (unconfirmed) Premature ventricular complexes are no longer Present Confirmed by MAHI RACHEL M.D ([id number]) on 01/27/2024 12:23:55 PM [facility] 01/27/2024 5:05 AM CDT 01/27/2024 12:23 PM CDT us Marisela Russell COMPUTER GAME PROGRAMMER ECG ORDERABLES Final Res ult Performing Organization Address City/[facility]/ZIP Co de Phone Number [facility] * POCT glucose (01/27/2024 3:13 AM CDT) Glucose, POC 123 70 - 199 mg/dL Blood 01/27/2024 3:13 AM CDT 01/27/2024 3:13 AM CDT us Stan Treviño MD LAB POCT ORDERABLES - DEVICE Final Result Performing Organization Address [facility] Co de Phone Number [facility] [place] [address] * POCT glucose (01/27/2024 2:14 AM CDT) Glucose, POC 119 70 - 199 mg/dL Blood 01/27/2024 2:14 AM CDT 01/27/2024 2:14 AM CDT us Stan Treviño MD LAB POCT ORDERABLES - DEVICE Final Result Performing Organization Address [facility] de Phone Number [facility] [place] [address] * POCT glucose (01/27/2024 1:39 AM CDT) Glucose, POC 92 70 - 199 mg/dL Blood 01/27/2024 1:39 AM CDT 01/27/2024 1:39 AM CDT us Stan Treviño MD LAB POCT ORDERABLES - DEVICE Final Result Performing Organization Address [facility] Co de Phone Number [facility] [place] [address] * POCT glucose (01/27/2024 1:19 AM CDT) Glucose, POC 73 70 - 199 mg/dL Blood 01/27/2024 1:19 AM CDT 01/27/2024 1:19 AM CDT Result Esteban Treviño MD LAB POCT ORDERABLES - DEVICE Final Result Performing Organization Address [facility] Co de Phone Number [facility] [place] [address] * (ABNORMAL) POCT glucose (01/27/2024 1:00 AM CDT) Glucose, POC 58(L) 70 - 199 mg/dL Blood 01/27/2024 1:00 AM CDT 01/27/2024 1:00 AM CDT Stan Treviño MD LAB POCT ORDERABLES - DEVICE Final Result [facility] [place] [address] * (ABNORMAL) eGFR (01/26/2024 9:20 PM CDT) [...] CDT 01/26/2024 9:49 PM CDT Nii Garces COMPUTER GAME PROGRAMMER LAB BLOOD ORDERABLES Final R esult Performing Organization Address [facility] [place] [address] * Type and screen (01/26/2024 9:20 PM CDT) Pathologist [facility] ABO Rh A Positive Sergio, indirect Negative [facility] Blood 01/26/2024 9:20 PM CDT 01/26/2024 9:55 PM CDT Narrative [facility] - 01/26/2024 10:57 PM CDT Has the patient had Daratumumab or Isatuximab in the past 6 months?->Unknown us Eloisa Freeman COMPUTER GAME PROGRAMMER LAB BLOOD BANK TEST ORDERABLES F inal Result Performing Organization Address [facility] [place] [address] * (ABNORMAL) CBC without differential (01/26/2024 9:20 PM CDT) Pathologist [facility] WBC 8.2 3.8 - 9.9 K/cumm Hgb 8.0(L) 11.9 - 15.5 g/dL [facility] Hct 24.6(L) 35.6 - 45.5 % [facility] Plt 211 150 - 400 K/cumm [facility] MPV 11.0 9.1 - 12.3 fL [facility] RBC 2.73(L) 3.90 - 5.20 M/cumm [facility] MCV 90.1 81.3 - 96.4 fL [facility] MCH 29.3 27.1 - 33.3 pg [facility] MCHC 32.5 32.3 - 35.7 g/dL [facility] RDW CV 13.9 11.1 - 14.9 % [facility] RDW SD 45.2 35.7 - 48.1 fL [facility] NRBC abs 0.00 0.00 - 0.01 K/cumm [facility] Blood 01/26/2024 9:20 PM CDT 01/26/2024 9:49 PM CDT Nii Garces NP LAB BLOOD ORDERABLES Final R esult [facility] [place] [address] * (ABNORMAL) Basic metabolic panel (01/26/2024 9:20 PM CDT) Sodium 140 135 - 145 mmol/L Potassium, pl 4.6 3.3 - 4.9 mmol/L [facility] Chloride 105 97 - 110 mmol/L [facility] CO2 24 22 - 32 mmol/L [facility] Anion gap 11 2 - 15 mmol/L [facility] BUN 33(H) 6 - 25 mg/dL [facility] Creatinine 1.34(H) 0.60 - 1.10 mg/dL [facility] Glucose 138 70 - 199 mg/dL [facility] Comment: Interpretive Data Fasting glucose [...] 2022. Calcium 8.5 8.5 - 10.3 mg/dL [facility] Blood 01/26/2024 9:20 PM CDT 01/26/2024 9:49 PM CDT Nii Garces NP LAB BLOOD ORDERABLES Final R esult Performing Organization Address City/[facility] Co de Phone Number [facility] [place] [address] * Phosphorus (01/26/2024 9:20 PM CDT) Phosphorus, pl 3.5 2.3 - 4.5 mg/dL Blood 01/26/2024 9:20 PM CDT 01/26/2024 9:49 PM CDT us Nii Garces NP LAB BLOOD ORDERABLES Final R esult Performing Organization Address [facility] Co de Phone Number [facility] [place] [address] * Magnesium (01/26/2024 9:20 PM CDT) [facility] Magnesium 1.9 1.4 - 2.5 mg/dL Blood 01/26/2024 9:20 PM CDT 01/26/2024 9:49 PM CDT us Nii Garces NP LAB BLOOD ORDERABLES Final R esult Performing Organization Address [facility] Co de Phone Number [facility] [place] [address] * (ABNORMAL) POCT glucose (01/26/2024 7:51 PM CDT) Glucose, POC 201(H) 70 - 199 mg/dL Blood 01/26/2024 7:51 PM CDT 01/26/2024 7:51 PM CDT us Stan Treviño MD LAB POCT ORDERABLES - DEVICE Final Result Performing Organization Address City/[facility] Co de Phone Number [facility] [place] [address] * (ABNORMAL) POCT glucose (01/26/2024 6:48 PM CDT) Glucose, POC 234(H) 70 - 199 mg/dL Blood 01/26/2024 6:48 PM CDT 01/26/2024 6:48 PM CDT Stan Treviño MD LAB POCT ORDERABLES - DEVICE Final Result Performing Organization Address [facility] Co de Phone Number [facility] [place] [address] * POCT glucose (01/26/2024 5:42 PM CDT) Glucose, POC 95 70 - 199 mg/dL Blood 01/26/2024 5:42 PM CDT 01/26/2024 5:42 PM CDT Stan Treviño MD LAB POCT ORDERABLES - DEVICE Final Result Performing Organization Address [facility] Co de Phone Number [facility] [place] [address] * (ABNORMAL) POCT glucose (01/26/2024 5:21 PM CDT) Glucose, POC 65(L) 70 - 199 mg/dL Blood 01/26/2024 5:21 PM CDT 01/26/2024 5:21 PM CDT Stan Treviño MD LAB POCT ORDERABLES - DEVICE Final Result Performing Organization Address [facility] Co de Phone Number [facility] [place] [address] * Infection Prevention Ema auris PCR, surveillance Axilla/Groin (01/26/2024 3:28 PM CDT) Ema auris DNA Not Detected Not Detected [facility] Comment: Interpretive Data Testing performed by [facility] using the [employer] Liaison MDX Ema auris assay. ??This assay detects DNA from Ema auris using Real-Time PCR. ??This assay is laboratory developed and is not cleared by the [place] Food and Drug Administration. ??The performance characteristics have been verified by the [facility]. Interpretive data was last reviewed on 09/04/2023 Axilla/Groin 01/26/2024 3:28 PM CDT 01/26/2024 4:31 PM CDT Jean Paul Platt MD LAB MICROBIOLOGY - GENERAL OR DERABLES Final Result Performing Organization Address City/[facility] Co de Phone Number [facility] [place] [address] [facility] * POCT glucose (01/26/2024 12:02 PM CDT) Glucose, POC 150 70 - 199 mg/dL Blood 01/26/2024 12:0 2 PM CDT 01/26/2024 12:02 PM CDT Stan Treviño MD LAB POCT ORDERABLES - DEVICE Final Result Performing Organization Address [facility] Co de Phone Number [facility] [place] [address] * POCT glucose (01/26/2024 8:18 AM CDT) Glucose, POC 94 70 - 199 mg/dL Blood 01/26/2024 8:18 AM CDT 01/26/2024 8:18 AM CDT Stan Treviño MD LAB POCT ORDERABLES - DEVICE Final Result Performing Organization Address [facility] Co de [place] [address] * POCT glucose (01/26/2024 6:38 AM CDT) Glucose, POC 111 70 - 199 mg/dL Blood 01/26/2024 6:38 AM CDT 01/26/2024 6:38 AM CDT Stan Treviño MD LAB POCT ORDERABLES - DEVICE Final Result Performing Organization Address City/[facility] [place] [address] * POCT glucose (01/26/2024 5:01 AM CDT) Glucose, POC 107 70 - 199 mg/dL Blood 01/26/2024 5:01 AM CDT 01/26/2024 5:01 AM CDT Stan Treviño MD LAB POCT ORDERABLES - DEVICE Final Result Performing Organization Address [facility] [place] [address] * (ABNORMAL) POCT glucose (01/26/2024 4:31 AM CDT) Glucose, POC 64(L) 70 - 199 mg/dL Blood 01/26/2024 4:31 AM CDT 01/26/2024 4:31 AM CDT us Stan Treviño MD LAB POCT ORDERABLES - DEVICE Final Result Performing Organization Address [facility] Co de Phone Number [facility] [place] [address] * ECG 12 lead (01/26/2024 2:54 AM CDT) [facility] Ventricular Rate EKG/Min 74 BPM [facility] Atrial Rate 74 BPM [facility] HI-Interval (MSEC) 140 ms [facility] QRS-Interval (MSEC) 124 ms [facility] QT-Interval (MSEC) 444 ms [facility] QTc 492 ms [facility] P [place] 50 degrees [facility] R [place] -57 degrees [facility] [place] 27 degrees [facility] [place] Diagnosis Sinus rhythm with frequent Premature ventricular complexes Right bundle branch block Left anterior fascicular block Bifascicular block Possible Lateral infarct (cited on or before 25-JAN-2024) Abnormal ECG When compared with ECG of 25-JAN-2024 13:07, (unconfirmed) Premature ventricular complexes are now Present Confirmed by MAHI RACHEL M.D ([id number]) on 01/27/2024 12:50:01 PM [facility] 01/26/2024 2:54 AM CDT 01/27/2024 12:50 PM CDT Marisela Russell COMPUTER GAME PROGRAMMER ECG ORDERABLES Final Res ult Performing Organization Address City/[facility]/ZIP Co de Phone Number [facility] * POCT glucose (01/26/2024 2:43 AM CDT) [facility] Glucose, POC 83 70 - 199 mg/dL Blood 01/26/2024 2:43 AM CDT 01/26/2024 2:43 AM CDT Stan Treviño MD LAB POCT ORDERABLES - DEVICE Final Result [facility] [place] [address] * (ABNORMAL) eGFR (01/25/2024 9:40 PM CDT) [facility] eGFR 43(L) >=60 mL/min/1. 73 m2 Comment: [...] NP LAB BLOOD ORDERABLES Final R esult [facility] Department of Laboratories [place], [place] [id number] * (ABNORMAL) CBC without differential (01/25/2024 9:40 PM CDT) WBC 8.6 3.8 - 9.9 K/cumm Hgb 8.5(L) 11.9 - 15.5 g/dL [facility] Hct 26.8(L) 35.6 - 45.5 % [facility] Plt 210 150 - 400 K/cumm [facility] MPV 11.3 9.1 - 12.3 fL [facility] RBC 2.95(L) 3.90 - 5.20 M/cumm [facility] MCV 90.8 81.3 - 96.4 fL [facility] MCH 28.8 27.1 - 33.3 pg [facility] MCHC 31.7(L) 32.3 - 35.7 g/dL [facility] RDW CV 13.8 11.1 - 14.9 % [facility] RDW SD 45.3 35.7 - 48.1 fL [facility] NRBC abs 0.00 0.00 - 0.01 K/cumm [facility] Blood 01/25/2024 9:40 PM CDT 01/25/2024 10:45 PM CDT us Nii Garces NP LAB BLOOD ORDERABLES Final R esult [facility] [place] [address] * (ABNORMAL) Basic metabolic panel (01/25/2024 9:40 PM CDT) [facility] Sodium 141 135 - 145 mmol/L Potassium, pl 3.6 3.3 - 4.9 mmol/L [facility] Chloride 105 97 - 110 mmol/L [facility] CO2 26 22 - 32 mmol/L [facility] Anion gap 10 2 - 15 mmol/L [facility] BUN 36(H) 6 - 25 mg/dL [facility] Creatinine 1.30(H) 0.60 - 1.10 mg/dL [facility] Glucose 131 70 - 199 mg/dL [facility] Comment: Interpretive Data Fasting glucose [...] 2022. Calcium 8.6 8.5 - 10.3 mg/dL [facility] Blood 01/25/2024 9:40 PM CDT 01/25/2024 10:45 PM CDT Nii Garces NP LAB BLOOD ORDERABLES Final R esult Performing Organization Address City/[facility] Co de Phone Number [facility] [place] [address] * Phosphorus (01/25/2024 9:40 PM CDT) Phosphorus, pl 4.2 2.3 - 4.5 mg/dL Blood 01/25/2024 9:40 PM CDT 01/25/2024 10:45 PM CDT Nii Garces NP LAB BLOOD ORDERABLES Final R esult Performing Organization Address City/[facility] Co de Phone Number [facility] [place] [address] * Magnesium (01/25/2024 9:40 PM CDT) Pathologist [facility] Magnesium 2.1 1.4 - 2.5 mg/dL Blood 01/25/2024 9:40 PM CDT 01/25/2024 10:45 PM CDT Nii Garces NP LAB BLOOD ORDERABLES Final R esult Performing Organization Address City/[facility] Co de Phone Number [facility] [place] [address] * POCT glucose (01/25/2024 9:39 PM CDT) Glucose, POC 146 70 - 199 mg/dL Blood 01/25/2024 9:39 PM CDT 01/25/2024 9:39 PM CDT us Stan Treviño MD LAB POCT ORDERABLES - DEVICE Final Result Performing Organization Address [facility] Co de Phone Number [facility] [place] [address] * POCT glucose (01/25/2024 6:40 PM CDT) Glucose, POC 197 70 - 199 mg/dL Blood 01/25/2024 6:40 PM CDT 01/25/2024 6:40 PM CDT Stan Treviño MD LAB POCT ORDERABLES - DEVICE Final Result Performing Organization Address [facility] de Phone Number [facility] [place] [address] * POCT glucose (01/25/2024 5:32 PM CDT) Glucose, POC 111 70 - 199 mg/dL Blood 01/25/2024 5:32 PM CDT 01/25/2024 5:32 PM CDT Stan Treviño MD LAB POCT ORDERABLES - DEVICE Final Result Performing Organization Address [facility] Co de Phone Number [facility] [place] [address] * POCT glucose (01/25/2024 5:16 PM CDT) Glucose, POC 72 70 - 199 mg/dL Blood 01/25/2024 5:16 PM CDT 01/25/2024 5:16 PM CDT us Stan Treviño MD LAB POCT ORDERABLES - DEVICE Final Result Performing Organization Address [facility] Co de Phone Number [facility] [place] [address] * (ABNORMAL) POCT glucose (01/25/2024 5:00 PM CDT) Glucose, POC 61(L) 70 - 199 mg/dL Blood 01/25/2024 5:00 PM CDT 01/25/2024 5:00 PM CDT us Stan Treviño MD LAB POCT ORDERABLES - DEVICE Final Result [facility] [place] [address] * ECG 12 lead (01/25/2024 1:07 PM CDT) Pathologist [facility] Ventricular Rate EKG/Min 74 BPM [facility] Atrial Rate 74 BPM [facility] HI-Interval (MSEC) 122 ms [facility] QRS-Interval (MSEC) 126 ms [facility] QT-Interval (MSEC) 442 ms [facility] QTc 490 ms [facility] P [place] 55 degrees [facility] R [place] -53 degrees [facility] T [place] 27 degrees [facility] Diagnosis Normal sinus rhythm Right bundle branch block Left anterior fascicular block Bifascicular block Possible Lateral infarct , age undetermined Abnormal ECG Confirmed by Anu CLARK, [facility] ([id number]) on 01/27/2024 2:47:59 PM [facility] 01/25/2024 1:07 PM CDT 01/27/2024 2:47 PM CDT us Marisela Russell NP ECG ORDERABLES Final Res ult [facility] [employer] [facility] * XR Chest Pa Lateral 2 Views [...] signed by: Robert Fiore M.D. Marisela Russell COMPUTER GAME PROGRAMMER IMG XR PROCEDURES Final R esult * (ABNORMAL) POCT glucose (01/25/2024 11:10 AM CDT) Glucose, POC 221(H) 70 - 199 mg/dL Blood 01/25/2024 11:1 0 AM CDT 01/25/2024 11:10 AM CDT Stan Treviño MD LAB POCT ORDERABLES - DEVICE Final Result [facility] Department [place] [address] * POCT glucose (01/25/2024 8:28 AM CDT) Glucose, POC 124 70 - 199 mg/dL Blood 01/25/2024 8:28 AM CDT 01/25/2024 8:28 AM CDT Stan Treviño MD LAB POCT ORDERABLES - DEVICE Final Result Performing Organization Address [facility] Co de Phone Number [facility] [place] [address] * POCT glucose (01/25/2024 2:02 AM CDT) Glucose, POC 109 70 - 199 mg/dL Blood 01/25/2024 2:02 AM CDT 01/25/2024 2:02 AM CDT Stan Treviño MD LAB POCT ORDERABLES - DEVICE Final Result Performing Organization Address [facility] de Phone Number [facility] [place] [address] * (ABNORMAL) eGFR (01/24/2024 8:13 PM CDT) [...] Final R esult Performing Organization Address City/[facility]/ZIP Co de Phone Number [facility] [place] [address] * (ABNORMAL) CBC without differential (01/24/2024 8:13 PM CDT) WBC 8.6 3.8 - 9.9 K/cumm Hgb 8.5(L) 11.9 - 15.5 g/dL [facility] Hct 27.3(L) 35.6 - 45.5 % [facility] Plt 169 150 - 400 K/cumm [facility] MPV 11.1 9.1 - 12.3 fL [facility] RBC 2.96(L) 3.90 - 5.20 M/cumm [facility] MCV 92.2 81.3 - 96.4 fL [facility] MCH 28.7 27.1 - 33.3 pg [facility] MCHC 31.1(L) 32.3 - 35.7 g/dL [facility] RDW CV 13.9 11.1 - 14.9 % [facility] RDW SD 46.5 35.7 - 48.1 fL [facility] NRBC abs 0.00 0.00 - 0.01 K/cumm [facility] Blood 01/24/2024 8:13 PM CDT 01/24/2024 8:53 PM CDT us Nii Garces NP LAB BLOOD ORDERABLES Final R esult Performing Organization Address City/[facility]/ZIP Co de Phone Number [facility] [place] [address] * (ABNORMAL) Basic metabolic panel (01/24/2024 8:13 PM CDT) Sodium 143 135 - 145 mmol/L Potassium, pl 4.0 3.3 - 4.9 mmol/L [facility] Chloride 108 97 - 110 mmol/L [facility] CO2 23 22 - 32 mmol/L [facility] Anion gap 12 2 - 15 mmol/L [facility] BUN 33(H) 6 - 25 mg/dL [facility] Creatinine 1.06 0.60 - 1.10 mg/dL [facility] Glucose 140 70 - 199 mg/dL [facility] Comment: Interpretive Data Fasting glucose [...] 2022. Calcium 8.2(L) 8.5 - 10.3 mg/dL [facility] Blood 01/24/2024 8:13 PM CDT 01/24/2024 8:52 PM CDT us Nii Garces NP LAB BLOOD ORDERABLES Final R esult [facility] [place] [address] * Phosphorus (01/24/2024 8:13 PM CDT) Pathologist [facility] Phosphorus, pl 3.1 2.3 - 4.5 mg/dL Blood 01/24/2024 8:13 PM CDT 01/24/2024 8:52 PM CDT us Nii Ray Palmejar COMPUTER GAME PROGRAMMER LAB BLOOD ORDERABLES Final R esult Performing Organization Address [facility] Co de Phone Number [facility] [place] [address] * Magnesium (01/24/2024 8:13 PM CDT) Magnesium 2.0 1.4 - 2.5 mg/dL Blood 01/24/2024 8:13 PM CDT 01/24/2024 8:52 PM CDT Nii Garces NP LAB BLOOD ORDERABLES Final R esult Performing Organization Address [facility] [place] [address] * POCT glucose (01/24/2024 7:27 PM CDT) Glucose, POC 161 70 - 199 mg/dL Blood 01/24/2024 7:27 PM CDT 01/24/2024 7:27 PM CDT Stan Treviño MD LAB POCT ORDERABLES - DEVICE Final Result Performing Organization Address [facility] Co de Phone Number [facility] [place] [address] * POCT glucose (01/24/2024 4:26 PM CDT) Glucose, POC 97 70 - 199 mg/dL Blood 01/24/2024 4:26 PM CDT 01/24/2024 4:26 PM CDT Stan Treviño MD LAB POCT ORDERABLES - DEVICE Final Result Performing Organization Address [facility] Co de Phone Number [facility] [place] [address] * XR Chest 1 View - in [...] agrees with it. Electronically signed by: Ceasar Seasy M.D. Narrative 01/24/2024 5:19 PM CDT EXAMINATION: [...] M.D. Cinthia BATISTA IMG XR PROCEDURES Phyllis zeke Result * POCT glucose (01/24/2024 12:27 PM CDT) Glucose, POC 125 70 - 199 mg/dL Blood 01/24/2024 12:2 7 PM CDT 01/24/2024 12:27 PM CDT Stan Treviño MD LAB POCT ORDERABLES - DEVICE Final Result Performing Organization Address [facility] de Phone Number J[facility] [place] [address] * POCT glucose (01/24/2024 7:32 AM CDT) Glucose, POC 143 70 - 199 mg/dL Blood 01/24/2024 7:32 AM CDT 01/24/2024 7:32 AM CDT Stan Treviño MD LAB POCT ORDERABLES - DEVICE Final Result Performing Organization Address [facility] de Phone Number JORGE [facility] [place] [address] * POCT glucose (01/24/2024 1:43 AM CDT) Glucose, POC 194 70 - 199 mg/dL Blood 01/24/2024 1:43 AM CDT 01/24/2024 1:43 AM CDT Stan Treviño MD LAB POCT ORDERABLES - DEVICE Final Result Performing Organization Address [facility] de Phone Number [facility] [place] [address] * (ABNORMAL) eGFR (01/23/2024 10:31 PM CDT) [...] NP LAB BLOOD ORDERABLES Final R esult [facility] [place] [address] * (ABNORMAL) CBC without differential (01/23/2024 10:31 PM CDT) Pathologist [facility] WBC 7.2 3.8 - 9.9 K/cumm Hgb 8.4(L) 11.9 - 15.5 g/dL [facility] Hct 25.8(L) 35.6 - 45.5 % [facility] Plt 155 150 - 400 K/cumm [facility] MPV 11.5 9.1 - 12.3 fL [facility] RBC 2.84(L) 3.90 - 5.20 M/cumm [facility] MCV 90.8 81.3 - 96.4 fL [facility] MCH 29.6 27.1 - 33.3 pg [facility] MCHC 32.6 32.3 - 35.7 g/dL [facility] RDW CV 13.9 11.1 - 14.9 % [facility] RDW SD 46.9 35.7 - 48.1 fL [facility] NRBC abs 0.00 0.00 - 0.01 K/cumm [facility] Blood 01/23/2024 10:3 1 PM CDT 01/23/2024 10:59 PM CDT Nii Garces NP LAB BLOOD ORDERABLES Final R esult [facility] [place] [address] * (ABNORMAL) Basic metabolic panel (01/23/2024 10:31 PM CDT) Sodium 139 135 - 145 mmol/L Potassium, pl 4.4 3.3 - 4.9 mmol/L [facility] Chloride 106 97 - 110 mmol/L [facility] CO2 22 22 - 32 mmol/L [facility] Anion gap 11 2 - 15 mmol/L [facility] BUN 43(H) 6 - 25 mg/dL [facility] Creatinine 1.28(H) 0.60 - 1.10 mg/dL [facility] Glucose 242(H) 70 - 199 mg/dL [facility] Comment: Interpretive Data Fasting glucose [...] 2022. Calcium 8.3(L) 8.5 - 10.3 mg/dL [facility] Blood 01/23/2024 10:3 1 PM CDT 01/23/2024 11:08 PM CDT Nii Garces NP LAB BLOOD ORDERABLES Final R esult Performing Organization Address City/[facility]/ZIP Co de Phone Number [facility] [place] [address] * Phosphorus (01/23/2024 10:31 PM CDT) Phosphorus, pl 2.6 2.3 - 4.5 mg/dL Blood 01/23/2024 10:3 1 PM CDT 01/23/2024 11:08 PM CDT Nii Garces NP LAB BLOOD ORDERABLES Final R esult Performing Organization Address [facility] Co de Phone Number [facility] [place] [address] * Magnesium (01/23/2024 10:31 PM CDT) Magnesium 2.2 1.4 - 2.5 mg/dL Blood 01/23/2024 10:3 1 PM CDT 01/23/2024 11:08 PM CDT Nii Garces NP LAB BLOOD ORDERABLES Final R esult Performing Organization Address [facility] Co de Phone Number [facility] [place] [address] * Type and screen (01/23/2024 10:31 PM CDT) ABO Rh A Positive Sergio, indirect Negative [facility] Blood 01/23/2024 10:3 1 PM CDT 01/23/2024 11:07 PM CDT Narrative [facility] - 01/24/2024 12:04 AM CDT Has the patient had Daratumumab or Isatuximab in the past 6 months?->Unknown Stan Treviño MD LAB BLOOD BANK TEST ORDERABLE S Final Result [facility] [place] [address] * (ABNORMAL) POCT glucose (01/23/2024 7:57 PM CDT) Glucose, POC 272(H) 70 - 199 mg/dL Blood 01/23/2024 7:57 PM CDT 01/23/2024 7:57 PM CDT Stan Treviño MD LAB POCT ORDERABLES - DEVICE Final Result Performing Organization Address [facility] Co de Phone Number [facility] [place] [address] * XR Chest 1 View - in [...] signed by: Guanakito Reed M.D. Nii Garces COMPUTER GAME PROGRAMMER IMG XR PROCEDURES Final Resu lt * POCT glucose (01/23/2024 5:59 PM CDT) Glucose, POC 142 70 - 199 mg/dL Blood 01/23/2024 5:59 PM CDT 01/23/2024 5:59 PM CDT Stan Treviño MD LAB POCT ORDERABLES - DEVICE Final Result Performing Organization Address [facility]/ZIP Co de Phone Number [facility] [place] [address] * POCT glucose (01/23/2024 5:36 PM CDT) Glucose, POC 97 70 - 199 mg/dL Blood 01/23/2024 5:36 PM CDT 01/23/2024 5:36 PM CDT Stan Treviño MD LAB POCT ORDERABLES - DEVICE Final Result Performing Organization Address City/[facility]/ZIP Co de Phone Number [facility] [place] [address] * (ABNORMAL) POCT glucose (01/23/2024 5:09 PM CDT) Glucose, POC 56(L) 70 - 199 mg/dL Blood 01/23/2024 5:09 PM CDT 01/23/2024 5:09 PM CDT us Stan Treviño MD LAB POCT ORDERABLES - DEVICE Final Result Performing Organization Address [facility] [place] [address] * (ABNORMAL) POCT glucose (01/23/2024 11:34 AM CDT) Glucose, POC 217(H) 70 - 199 mg/dL Blood 01/23/2024 11:3 4 AM CDT 01/23/2024 11:34 AM CDT us Stan Treviño MD LAB POCT ORDERABLES - DEVICE Final Result Performing Organization Address [facility] de Phone Number [facility] [place] [address] * POCT glucose (01/23/2024 7:39 AM CDT) Glucose, POC 152 70 - 199 mg/dL Blood 01/23/2024 7:39 AM CDT 01/23/2024 7:39 AM CDT us Stan Treviño MD LAB POCT ORDERABLES - DEVICE Final Result Performing Organization Address [facility] de Phone Number [facility] [place] [address] * POCT glucose (01/23/2024 2:16 AM CDT) Glucose, POC 141 70 - 199 mg/dL Blood 01/23/2024 2:16 AM CDT 01/23/2024 2:16 AM CDT us Stan Treviño MD LAB POCT ORDERABLES - DEVICE Final Result Performing Organization Address [facility] de Phone Number [facility] [place] [address] * POCT glucose (01/22/2024 11:19 PM CDT) Glucose, POC 183 70 - 199 mg/dL Blood 01/22/2024 11:1 9 PM CDT 01/22/2024 11:19 PM CDT Stan Treviño MD LAB POCT ORDERABLES - DEVICE Final Result Performing Organization Address City/[facility] Co de Phone Number [facility] [place] [address] * (ABNORMAL) eGFR (01/22/2024 10:21 PM CDT) Pathologist [facility] eGFR 39(L) >=60 mL/min/1. 73 [...] NP LAB BLOOD ORDERABLES Final R esult [facility] [place] [address] * (ABNORMAL) CBC without differential (01/22/2024 10:21 PM CDT) WBC 11.2(H) 3.8 - 9.9 K/cumm Hgb 8.7(L) 11.9 - 15.5 g/dL [facility] Hct 26.9(L) 35.6 - 45.5 % [facility] Plt 136(L) 150 - 400 K/cumm [facility] MPV 11.6 9.1 - 12.3 fL [facility] RBC 2.96(L) 3.90 - 5.20 M/cumm [facility] MCV 90.9 81.3 - 96.4 fL [facility] MCH 29.4 27.1 - 33.3 pg [facility] MCHC 32.3 32.3 - 35.7 g/dL [facility] RDW CV 14.3 11.1 - 14.9 % [facility] RDW SD 47.3 35.7 - 48.1 fL [facility] NRBC abs 0.00 0.00 - 0.01 K/cumm [facility] Blood 01/22/2024 10:2 1 PM CDT 01/22/2024 10:40 PM CDT Nii Garces NP LAB BLOOD ORDERABLES Final R esult [facility] [place] [address] * (ABNORMAL) Basic metabolic panel (01/22/2024 10:21 PM CDT) Sodium 139 135 - 145 mmol/L Potassium, pl 4.4 3.3 - 4.9 mmol/L [facility] Chloride 106 97 - 110 mmol/L [facility] CO2 23 22 - 32 mmol/L [facility] Anion gap 10 2 - 15 mmol/L [facility] BUN 43(H) 6 - 25 mg/dL [facility] Creatinine 1.41(H) 0.60 - 1.10 mg/dL [facility] Glucose 195 70 - 199 mg/dL [facility] Comment: Interpretive Data Fasting glucose [...] 2022. Calcium 8.6 8.5 - 10.3 mg/dL [facility] Blood 01/22/2024 10:2 1 PM CDT 01/22/2024 10:41 PM CDT Nii Garces NP LAB BLOOD ORDERABLES Final R esult [facility] [place] [address] * (ABNORMAL) Phosphorus (01/22/2024 10:21 PM CDT) Pathologist [facility] Phosphorus, pl 2.2(L) 2.3 - 4.5 mg/dL Blood 01/22/2024 10:2 1 PM CDT 01/22/2024 10:41 PM CDT Nii Ray Palmejar COMPUTER GAME PROGRAMMER LAB BLOOD ORDERABLES Final R esult Performing Organization Address [facility] Co de Phone Number [facility] [place] [address] * Magnesium (01/22/2024 10:21 PM CDT) Magnesium 2.4 1.4 - 2.5 mg/dL Blood 01/22/2024 10:2 1 PM CDT 01/22/2024 10:41 PM CDT us Nii Garces COMPUTER GAME PROGRAMMER LAB BLOOD ORDERABLES Final R esult Performing Organization Address [facility] Co de Phone Number [facility] [place] [address] * POCT glucose (01/22/2024 8:38 PM CDT) Glucose, POC 188 70 - 199 mg/dL Blood 01/22/2024 8:38 PM CDT 01/22/2024 8:38 PM CDT us Stan Treviño MD LAB POCT ORDERABLES - DEVICE Final Result Performing Organization Address [facility] de Phone Number [facility] [place] [address] * XR Chest 1 View - in [...] LAB POCT ORDERABLES - DEVICE Final Result [facility] Department [place] [address] * XR Chest 1 View (01/22/2024 2:43 [...] by: Erica Mustafa M.D. us Nii Garces COMPUTER GAME PROGRAMMER IMG XR PROCEDURES Final Resu lt * POCT glucose (01/22/2024 12:03 PM CDT) Glucose, POC 196 70 - 199 mg/dL Blood 01/22/2024 12:0 3 PM CDT 01/22/2024 12:03 PM CDT tSan Treviño MD LAB POCT ORDERABLES - DEVICE Final Result Performing Organization Address [facility] Co de Phone Number [facility] [place] [address] * POCT glucose (01/22/2024 7:29 AM CDT) Glucose, POC 161 70 - 199 mg/dL Blood 01/22/2024 7:29 AM CDT 01/22/2024 7:29 AM CDT Stan Treviño MD LAB POCT ORDERABLES - DEVICE Final Result Performing Organization Address [facility] de Phone Number [facility] [place] [address] * (ABNORMAL) eGFR (01/22/2024 5:58 AM CDT) [...] 01/22/2024 6:26 AM CDT us Bri Lindo COMPUTER GAME PROGRAMMER LAB BLOOD ORDERABLES Final Result Performing Organization Address City/[facility] Co de Phone Number [facility] [place] [address] * Phosphorus (01/22/2024 5:58 AM CDT) Phosphorus, pl 2.8 2.3 - 4.5 mg/dL Blood 01/22/2024 5:58 AM CDT 01/22/2024 6:26 AM CDT us Bri Lindo COMPUTER GAME PROGRAMMER LAB BLOOD ORDERABLES Final Result Performing Organization Address [facility] de Phone Number [facility] [place] [address] * Magnesium (01/22/2024 5:58 AM CDT) Magnesium 2.3 1.4 - 2.5 mg/dL Blood 01/22/2024 5:58 AM CDT 01/22/2024 6:26 AM CDT us Bri Lindo COMPUTER GAME PROGRAMMER LAB BLOOD ORDERABLES Final Result Performing Organization Address City/[facility] [place] [address] * (ABNORMAL) Basic metabolic panel (01/22/2024 5:58 AM CDT) Sodium 139 135 - 145 mmol/L Potassium, pl 4.5 3.3 - 4.9 mmol/L [facility] Chloride 106 97 - 110 mmol/L [facility] CO2 25 22 - 32 mmol/L [facility] Anion gap 8 2 - 15 mmol/L [facility] BUN 40(H) 6 - 25 mg/dL [facility] Creatinine 1.53(H) 0.60 - 1.10 mg/dL [facility] Glucose 162 70 - 199 mg/dL [facility] Comment: Interpretive Data Fasting glucose [...] 2022. Calcium 8.9 8.5 - 10.3 mg/dL [facility] Blood 01/22/2024 5:58 AM CDT 01/22/2024 6:26 AM CDT us Bri Lindo NP LAB BLOOD ORDERABLES Final Result [facility] One [facility] [place] [address] * (ABNORMAL) CBC without differential (01/22/2024 5:58 AM CDT) Pathologist [facility] WBC 14.0(H) 3.8 - 9.9 K/cumm Hgb 8.7(L) 11.9 - 15.5 g/dL [facility] Hct 26.9(L) 35.6 - 45.5 % [facility] Plt 134(L) 150 - 400 K/cumm [facility] MPV 11.9 9.1 - 12.3 fL [facility] RBC 2.88(L) 3.90 - 5.20 M/cumm [facility] MCV 93.4 81.3 - 96.4 fL [facility] MCH 30.2 27.1 - 33.3 pg [facility] MCHC 32.3 32.3 - 35.7 g/dL [facility] RDW CV 14.1 11.1 - 14.9 % [facility] RDW SD 48.2(H) 35.7 - 48.1 fL [facility] NRBC abs 0.00 0.00 - 0.01 K/cumm [facility] Blood 01/22/2024 5:58 AM CDT 01/22/2024 6:26 AM CDT Bri Lindo COMPUTER GAME PROGRAMMER LAB BLOOD ORDERABLES Final Result Performing Organization Address [facility] Co de Phone Number [facility] [place] [address] * Infection Prevention Ema auris PCR, surveillance Axilla/Groin (01/22/2024 5:55 AM CDT) [facility] Ema auris DNA Not Detected Not Detected [facility] Comment: Interpretive Data Testing performed by [facility] Molecular Infectious Disease Laboratory using the [employer] MDX Ema auris assay. ??This assay detects DNA from Ema auris using Real-Time PCR. ??This assay is laboratory developed and is not cleared by the [facility] Food and Drug Administration. ??The performance characteristics have been verified by the [facility] Molecular Infectious Disease Laboratory. Interpretive data was last reviewed on 09/04/2023 Axilla/Groin 01/22/2024 5:55 AM CDT 01/22/2024 6:35 AM CDT Jean Paul Platt MD LAB MICROBIOLOGY - GENERAL OR DERABLES Final Result Performing Organization Address [facility] Co de Phone Number [facility] [place] [address] [facility] * POCT glucose (01/22/2024 2:42 AM CDT) Pathologist [facility] Glucose, POC 165 70 - 199 mg/dL Blood 01/22/2024 2:42 AM CDT 01/22/2024 2:42 AM CDT us Stan Treviño MD LAB POCT ORDERABLES - DEVICE Final Result Performing Organization Address [facility] Co de Phone Number [facility] [place] [address] * POCT glucose (01/22/2024 12:53 AM CDT) Glucose, POC 167 70 - 199 mg/dL Blood 01/22/2024 12:5 3 AM CDT 01/22/2024 12:53 AM CDT Stan Treviño MD LAB POCT ORDERABLES - DEVICE Final Result Performing Organization Address [facility] de Phone Number [facility] [place] [address] * XR Chest 1 View - in [...] - DEVICE Final Result Performing Organization Address [facility] Co de Phone Number [facility] [place] [address] * (ABNORMAL) POCT glucose (01/21/2024 5:08 PM CDT) Glucose, POC 259(H) 70 - 199 mg/dL Blood 01/21/2024 5:08 PM CDT 01/21/2024 5:08 PM CDT Stan Treviño MD LAB POCT ORDERABLES - DEVICE Final Result Performing Organization Address [facility] Co de Phone Number [facility] [place] [address] * (ABNORMAL) POCT glucose (01/21/2024 11:42 AM CDT) Glucose, POC 228(H) 70 - 199 mg/dL Blood 01/21/2024 11:4 2 AM CDT 01/21/2024 11:42 AM CDT Stan Treviño MD LAB POCT ORDERABLES - DEVICE Final Result Performing Organization Address City/[facility]/ZIP Co de Phone Number [facility] [place] [address] * ECG 12 lead (01/21/2024 11:01 AM CDT) Ventricular Rate EKG/Min 98 BPM [facility] Atrial Rate 98 BPM [facility] HI-Interval (MSEC) 122 ms [facility] QRS-Interval (MSEC) 118 ms [facility] QT-Interval (MSEC) 388 ms [facility] QTc 495 ms [facility] P [place] 61 degrees [facility] R [place] -51 degrees [facility] T [place] 13 degrees [facility] Diagnosis Normal sinus rhythm with sinus arrhythmia Incomplete right bundle branch block Left anterior fascicular block Prolonged QT Possible Right ventricular hypertrophy When compared with ECG of 20-JAN-2024 17:04, (unconfirmed) ST no longer depressed in Lateral leads Confirmed by JEAN PAUL BUSTOS M.D ([id number]) on 01/22/2024 9:02:17 AM [facility] 01/21/2024 11:0 1 AM CDT 01/22/2024 9:02 AM CDT us Cinthia BATISTA ECG ORDERABLES Final Result Performing Organization Address City/[facility]/ZIP Co de Phone Number [facility] * POCT glucose (01/21/2024 8:56 AM CDT) Glucose, POC 192 70 - 199 mg/dL Blood 01/21/2024 8:56 AM CDT 01/21/2024 8:56 AM CDT us Stan Treviño MD LAB POCT ORDERABLES - DEVICE Final Result [facility] [place] [address] * Critical Care (01/21/2024 6:00 AM CDT) [...] plan with the ICU team and other medical/therapeutic consultant staff, making frequent assessments and decisions [...] * POCT glucose (01/21/2024 3:56 AM CDT) [facility] Signature Glucose, POC 178 70 - 199 mg/dL Blood 01/21/2024 3:56 AM CDT 01/21/2024 3:56 AM CDT us Stan Treviño MD LAB POCT ORDERABLES - DEVICE Final Result Performing Organization Address [facility] Co de Phone Number JORGE MANSFIELD One [facility] [place] [address] * eGFR (01/21/2024 12:55 AM CDT) eGFR [...] ORDERABLES F inal Result Performing Organization Address [facility] Co de Phone Number JORGE MANSFIELD [facility] [place] [address] * Phosphorus (01/21/2024 12:55 AM CDT) [facility] Phosphorus, pl 4.1 2.3 - 4.5 mg/dL Comment:Repeated and Verifie d Blood 01/21/2024 12:5 5 AM CDT 01/21/2024 1:14 AM CDT Cinthia BATISTA LAB BLOOD ORDERABLES F inal Result Performing Organization Address City/[facility]/ZIP Co de Phone Number [facility] [place] [address] * Magnesium (01/21/2024 12:55 AM CDT) [facility] Magnesium 2.3 1.4 - 2.5 mg/dL Blood 01/21/2024 12:5 5 AM CDT 01/21/2024 1:14 AM CDT Cinthia BATISTA LAB BLOOD ORDERABLES F inal Result Performing Organization Address City/[facility] Co de Phone Number [facility] [place] [address] * (ABNORMAL) Basic metabolic panel (01/21/2024 12:55 AM CDT) [facility] Sodium 146(H) 135 - 145 mmol/L Potassium, pl 4.8 3.3 - 4.9 mmol/L [facility] Chloride 114(H) 97 - 110 mmol/L [facility] CO2 21(L) 22 - 32 mmol/L [facility] Anion gap 11 2 - 15 mmol/L [facility] BUN 28(H) 6 - 25 mg/dL [facility] Creatinine 0.99 0.60 - 1.10 mg/dL [facility] Glucose 193 70 - 199 mg/dL [facility] Comment: Interpretive Data Fasting glucose [...] 2022. Calcium 8.8 8.5 - 10.3 mg/dL [facility] Blood 01/21/2024 12:5 5 AM CDT 01/21/2024 1:14 AM CDT us Cinthia BATISTA LAB BLOOD ORDERABLES F inal Result [facility] [place] [address] * (ABNORMAL) CBC without differential (01/21/2024 12:55 AM CDT) Pathologist [facility] WBC 8.9 3.8 - 9.9 K/cumm Hgb 8.6(L) 11.9 - 15.5 g/dL [facility] Hct 26.4(L) 35.6 - 45.5 % [facility] Plt 132(L) 150 - 400 K/cumm [facility] MPV 11.0 9.1 - 12.3 fL [facility] RBC 2.88(L) 3.90 - 5.20 M/cumm [facility] MCV 91.7 81.3 - 96.4 fL [facility] MCH 29.9 27.1 - 33.3 pg [facility] MCHC 32.6 32.3 - 35.7 g/dL [facility] RDW CV 13.3 11.1 - 14.9 % [facility] RDW SD 44.6 35.7 - 48.1 fL [facility] NRBC abs 0.00 0.00 - 0.01 K/cumm [facility] Blood 01/21/2024 12:5 5 AM CDT 01/21/2024 1:14 AM CDT Cinthia BATISTA LAB BLOOD ORDERABLES F inal Result [facility] [place] [address] * XR Chest 1 View - in [...] LAB POCT ORDERABLES - DEVICE Final Result [facility] [place] [address] * XR Chest 1 View (01/20/2024 7:10 [...] plan with the ICU team and other medical/therapeutic consultant staff, making frequent assessments and decisions [...] * POCT glucose (01/20/2024 6:06 PM CDT) Glucose, POC 106 70 - 199 mg/dL Blood 01/20/2024 6:06 PM CDT 01/20/2024 6:06 PM CDT us Stan Treviño MD LAB POCT ORDERABLES - DEVICE Final Result [facility] Department [place] [address] * ECG 12 lead (01/20/2024 5:04 PM CDT) Pathologist [facility] Ventricular Rate EKG/Min 94 BPM [facility] Atrial Rate 94 BPM [facility] HI-Interval (MSEC) 140 ms [facility] QRS-Interval (MSEC) 122 ms [facility] QT-Interval (MSEC) 412 ms [facility] QTc 515 ms [facility] P [place] 73 degrees [facility] R [place] -61 degrees [facility] T [place] 38 degrees [facility] Diagnosis Normal sinus rhythm Right bundle branch block Left anterior fascicular block Bifascicular block Abnormal ECG Confirmed by Anu CLARK [facility] ([id number]) on 01/22/2024 12:20:57 AM [facility] 01/20/2024 5:04 PM CDT 01/22/2024 12:20 AM CDT us Stan Treviño MD ECG ORDERABLES Final Result [facility] * Triglycerides (01/20/2024 4:52 PM CDT) Pathologist [facility] Triglycerides 88 <=149 mg/dL Comment: Interpretive Data [...] ORDERABLES Final Re sult Performing Organization Address City/State/[facility] Co de Phone Number [facility] [place] [address] * eGFR (01/20/2024 4:52 PM CDT) eGFR [...] F inal Result Performing Organization Address City/[facility] de Phone Number [facility] [place] [address] * aPTT (01/20/2024 4:52 PM CDT) aPTT [...] ORDERABLES Final Re sult Performing Organization Address [facility] [place] [address] * (ABNORMAL) Protime-INR (01/20/2024 4:52 PM CDT) PT 13.3(H) 9.7 - 13.0 sec INR 1.23(H) 0.90 - 1.20 [facility] Comment: Interpretive data Oral anticoagulant therapeutic ranges: Venous thromboembolism prophylaxis or treatment: 2.0-3.0 CARDIOLOGY Standard range: 2.0-3.0 High-intensity range: 2.5-3.5 Refer to indication-specific guidelines for appropriate target ranges for prosthetic heart valve replacement. Current interpretive data was last revised on 2019. Blood 01/20/2024 4:52 PM CDT 01/20/2024 5:25 PM CDT us Stan Treviño MD LAB BLOOD ORDERABLES Final Re sult Performing Organization Address [facility] Co de Phone Number [facility] [place] [address] * (ABNORMAL) CBC without differential (01/20/2024 4:52 PM CDT) WBC 8.7 3.8 - 9.9 K/cumm Hgb 8.7(L) 11.9 - 15.5 g/dL [facility] Hct 26.5(L) 35.6 - 45.5 % [facility] Plt 143(L) 150 - 400 K/cumm [facility] MPV 11.1 9.1 - 12.3 fL [facility] RBC 2.98(L) 3.90 - 5.20 M/cumm [facility] MCV 88.9 81.3 - 96.4 fL [facility] MCH 29.2 27.1 - 33.3 pg [facility] MCHC 32.8 32.3 - 35.7 g/dL [facility] RDW CV 13.2 11.1 - 14.9 % [facility] RDW SD 42.7 35.7 - 48.1 fL [facility] NRBC abs 0.00 0.00 - 0.01 K/cumm [facility] Blood 01/20/2024 4:52 PM CDT 01/20/2024 5:14 PM CDT us Stan Treviño MD LAB BLOOD ORDERABLES Final Re sult [facility] [place] [address] * (ABNORMAL) Magnesium (01/20/2024 4:52 PM CDT) Pathologist [facility] Magnesium 2.7(H) 1.4 - 2.5 mg/dL Blood 01/20/2024 4:52 PM CDT 01/20/2024 5:20 PM CDT us Cinthia BATISTA LAB BLOOD ORDERABLES F inal Result Performing Organization Address City/[facility]/ZIP Co de Phone Number [facility] [place] [address] * (ABNORMAL) Basic metabolic panel (01/20/2024 4:52 PM CDT) Sodium 147(H) 135 - 145 mmol/L Potassium, pl 3.8 3.3 - 4.9 mmol/L [facility] Chloride 114(H) 97 - 110 mmol/L [facility] CO2 23 22 - 32 mmol/L [facility] Anion gap 10 2 - 15 mmol/L [facility] BUN 28(H) 6 - 25 mg/dL [facility] Creatinine 0.94 0.60 - 1.10 mg/dL [facility] Glucose 107 70 - 199 mg/dL [facility] Comment: Interpretive Data Fasting glucose [...] 2022. Calcium 9.2 8.5 - 10.3 mg/dL [facility] Blood 01/20/2024 4:52 PM CDT 01/20/2024 5:20 PM CDT Cinthia BATISTA LAB BLOOD ORDERABLES F inal Result [facility] Department [place] [address] * (ABNORMAL) Phosphorus (01/20/2024 4:52 PM CDT) Phosphorus, pl 1.8(L) 2.3 - 4.5 mg/dL Blood 01/20/2024 4:52 PM CDT 01/20/2024 5:20 PM CDT us Cinthia BATISTA LAB BLOOD ORDERABLES F inal Result J[facility] [place] [address] * Critical Care (01/20/2024 4:47 PM CDT) [...] plan with the ICU team and other medical/therapeutic consultant staff, making frequent assessments and decisions [...] PM CDT) [facility] pH, Art POC 7.40 7.35 - 7.45 pCO2, Art POC 33(L) 35 - 45 mmHg [facility] pO2, Art POC 116(H) 83 - 108 mmHg [facility] Na, POC 145 135 - 145 mmol/L [facility] K POC 3.6 3.3 - 4.9 mmol/L [facility] Comment: Interpretive Data Not all point of care methods assess for hemolysis. Confirm with instrument and retest K+ if not consistent with clinical signs and symptoms. Current Interpretive Data was last revised on 2023. Cl, POC 118(H) 97 - 110 mmol/L [facility] Ionized Ca, POC 5.08 4.50 - 5.10 mg/dL [facility] Glucose, POC 104 70 - 199 mg/dL [facility] Lactate, POC 1.0 0.7 - 2.2 mmol/L [facility] SO2 (kristy) arterial 100(H) 90 - 95 % [facility] Base excess, POC -3.8 mmol/L [facility] HCO3, Art POC 20 20 - 30 mmol/L [facility] Hct, POC 27.0(L) 36.3 - 45.3 % [facility] Total Hb, POC 9.1(L) 11.9 - 15.5 g/dL [facility] Blood 01/20/2024 4:43 PM CDT 01/20/2024 4:43 PM CDT Stan Treviño MD LAB POCT ORDERABLES - DEVICE Final Result [facility] [place] [address] * XR Chest 1 View (01/20/2024 3:15 PM CDT) Anatomical Region Laterality Modality Body, Chest N/A Computed Radiogr aphy 01/20/2024 3:3 0 PM CDT Impressions 01/20/2024 3:49 PM CDT [...] Hematocrit POC 24.5(L) 35.6 - 45.5 % [facility] Platelet POC 122(L) 150 - 400 K/cumm [facility] Blood 01/20/2024 2:56 PM CDT 01/20/2024 2:56 PM CDT Stan Treviño MD LAB POCT ORDERABLES - DEVICE Final Result [facility] [place] [address] * (ABNORMAL) POC Blood Gas and Chemistries, Arterial - (01/20/2024 2:17 PM CDT) pH, Art POC 7.36 7.35 - 7.45 pCO2, Art POC 37 35 - 45 mmHg [facility] pO2, Art POC 282(H) 83 - 108 mmHg [facility] Na, POC 145 135 - 145 mmol/L [facility] K POC 4.0 3.3 - 4.9 mmol/L [facility] Comment: Interpretive Data Not all point of care methods assess for hemolysis. Confirm with instrument and retest K+ if not consistent with clinical signs and symptoms. Current Interpretive Data was last revised on 2023. Cl, POC 117(H) 97 - 110 mmol/L [facility] Ionized Ca, POC 5.75(H) 4.50 - 5.10 mg/dL [facility] Glucose, POC 164 70 - 199 mg/dL [facility] Lactate, POC 1.4 0.7 - 2.2 mmol/L [facility] SO2 (kristy) arterial 100(H) 90 - 95 % [facility] Base excess, POC -4.2 mmol/L [facility] HCO3, Art POC 22 20 - 30 mmol/L [facility] Hct, POC 18.0(L) 36.3 - 45.3 % [facility] Total Hb, POC 6.0(L) 11.9 - 15.5 g/dL [facility] Blood 01/20/2024 2:17 PM CDT 01/20/2024 2:17 PM CDT Stan Treviño MD LAB POCT ORDERABLES - DEVICE Final Result Performing Organization Address [facility] de Phone Number [facility] [place] [address] * (ABNORMAL) POCT prothrombin time (01/20/2024 2:16 PM CDT) PT, POC 29.6(H) 11.7 - 16.6 sec INR, POC 2.3(H) 0.9 - 1.3 [facility] Blood 01/20/2024 2:16 PM CDT 01/20/2024 2:16 PM CDT Stan Treviño MD LAB POCT ORDERABLES - DEVICE Final Result Performing Organization Address [facility] de Phone Number [facility] [place] [address] * (ABNORMAL) POCT Partial thromboplastin time (PTT) (01/20/2024 2:15 PM CDT) [facility] APTT, POC 22.2(L) 32.5 - 46.1 sec Blood 01/20/2024 2:15 PM CDT 01/20/2024 2:15 PM CDT Stan Treviño MD LAB POCT ORDERABLES - DEVICE Final Result Performing Organization Address [facility] de Phone Number [facility] [place] [address] * (ABNORMAL) POCT hemoglobin, hematocrit and platelet count (01/20/2024 2:13 PM CDT) Hgb, POC 8.0(L) 11.9 - 15.5 g/dL Hematocrit POC 24.1(L) 35.6 - 45.5 % [facility] Platelet POC 102(L) 150 - 400 K/cumm [facility] Blood 01/20/2024 2:13 PM CDT 01/20/2024 2:13 PM CDT Stan Treviño MD LAB POCT ORDERABLES - DEVICE Final Result Performing Organization Address [facility] Co de Phone Number [facility] [place] [address] * POCT heparin/ACT CPB (01/20/2024 2:11 PM CDT) Heparin POC 0.0 units/mL ACT, CPB 112 112 - 174 sec [facility] Blood 01/20/2024 2:11 PM CDT 01/20/2024 2:11 PM CDT Stan Treviño MD LAB POCT ORDERABLES - DEVICE Final Result Performing Organization Address [facility] de Phone Number [facility] [place] [address] * (ABNORMAL) POCT heparin/ACT CPB (01/20/2024 1:45 PM CDT) Heparin POC >4.7 units/mL ACT, CPB 603(H) 112 - 174 sec [facility] Blood 01/20/2024 1:45 PM CDT 01/22/2024 8:07 AM CDT Stan Treviño MD LAB POCT ORDERABLES - DEVICE Final Result Performing Organization Address [facility] de Phone Number [facility] [place] [address] * (ABNORMAL) POC Blood Gas and Chemistries, Arterial - (01/20/2024 1:44 PM CDT) pH, Art POC 7.41 7.35 - 7.45 pCO2, Art POC 34(L) 35 - 45 mmHg [facility] pO2, Art POC 249(H) 83 - 108 mmHg [facility] Na, POC 144 135 - 145 mmol/L [facility] K POC 4.6 3.3 - 4.9 mmol/L [facility] Comment: Interpretive Data Not all point of care methods assess for hemolysis. Confirm with instrument and retest K+ if not consistent with clinical signs and symptoms. Current Interpretive Data was last revised on 2023. Cl, POC 116(H) 97 - 110 mmol/L [facility] Ionized Ca, POC 4.58 4.50 - 5.10 mg/dL [facility] Glucose, POC 169 70 - 199 mg/dL [facility] Lactate, POC 1.4 0.7 - 2.2 mmol/L [facility] SO2 (kristy) arterial 99(H) 90 - 95 % [facility] Base excess, POC -2.7 mmol/L [facility] HCO3, Art POC 22 20 - 30 mmol/L [facility] Hct, POC 24.0(L) 36.3 - 45.3 % [facility] Total Hb, POC 7.9(L) 11.9 - 15.5 g/dL [facility] Blood 01/20/2024 1:44 PM CDT 01/20/2024 1:44 PM CDT Stan Treviño MD LAB POCT ORDERABLES - DEVICE Final Result Performing Organization Address [facility]/ZIP Co de Phone Number [facility] [place] [address] * (ABNORMAL) POCT heparin/ACT CPB (01/20/2024 1:16 PM CDT) Heparin POC >4.7 units/mL ACT, CPB 603(H) 112 - 174 sec [facility] Blood 01/20/2024 1:16 PM CDT 01/22/2024 8:07 AM CDT Stan Treviño MD LAB POCT ORDERABLES - DEVICE Final Result JORGE MANSFIELD [facility] [place] [address] * (ABNORMAL) POC Blood Gas and Chemistries, Arterial - (01/20/2024 1:15 PM CDT) pH, Art POC 7.40 7.35 - 7.45 pCO2, Art POC 31(L) 35 - 45 mmHg [facility] pO2, Art POC 207(H) 83 - 108 mmHg [facility] Na, POC 143 135 - 145 mmol/L [facility] K POC 4.7 3.3 - 4.9 mmol/L [facility] Comment: Interpretive Data Not all point of care methods assess for hemolysis. Confirm with instrument and retest K+ if not consistent with clinical signs and symptoms. Current Interpretive Data was last revised on 2023. Cl, POC 116(H) 97 - 110 mmol/L [facility] Ionized Ca, POC 4.68 4.50 - 5.10 mg/dL [facility] Glucose, POC 184 70 - 199 mg/dL [facility] Lactate, POC 1.3 0.7 - 2.2 mmol/L [facility] SO2 (kristy) arterial 99(H) 90 - 95 % [facility] Base excess, POC -4.9 mmol/L [facility] HCO3, Art POC 19(L) 20 - 30 mmol/L [facility] Hct, POC 25.0(L) 36.3 - 45.3 % [facility] Total Hb, POC 8.4(L) 11.9 - 15.5 g/dL [facility] Blood 01/20/2024 1:15 PM CDT 01/20/2024 1:15 PM CDT Stan Treviño MD LAB POCT ORDERABLES - DEVICE Final Result JORGE MANSFIELD [facility] [place] [address] * (ABNORMAL) POC Blood Gas and Chemistries, Arterial - (01/20/2024 12:50 PM CDT) pH, Art POC 7.29(L) 7.35 - 7.45 pCO2, Art POC 43 35 - 45 mmHg [facility] pO2, Art POC 232(H) 83 - 108 mmHg [facility] Na, POC 143 135 - 145 mmol/L [facility] K POC 4.5 3.3 - 4.9 mmol/L [facility] Comment: Interpretive Data Not all point of care methods assess for hemolysis. Confirm with instrument and retest K+ if not consistent with clinical signs and symptoms. Current Interpretive Data was last revised on 2023. Cl, POC 115(H) 97 - 110 mmol/L [facility] Ionized Ca, POC 4.80 4.50 - 5.10 mg/dL [facility] Glucose, POC 183 70 - 199 mg/dL [facility] Lactate, POC 1.2 0.7 - 2.2 mmol/L [facility] SO2 (kristy) arterial 99(H) 90 - 95 % [facility] Base excess, POC -5.5 mmol/L [facility] HCO3, Art POC 21 20 - 30 mmol/L [facility] Hct, POC 26.0(L) 36.3 - 45.3 % [facility] Total Hb, POC 8.5(L) 11.9 - 15.5 g/dL [facility] Blood 01/20/2024 12:5 0 PM CDT 01/20/2024 12:50 PM CDT Stan Treviño MD LAB POCT ORDERABLES - DEVICE Final Result [facility] Department [place] [address] * (ABNORMAL) POCT heparin/ACT CPB (01/20/2024 12:48 PM CDT) Heparin POC 2.7 units/mL ACT, CPB 718(H) 112 - 174 sec [facility] Blood 01/20/2024 12:4 8 PM CDT 01/20/2024 12:48 PM CDT Stan Treviño MD LAB POCT ORDERABLES - DEVICE Final Result Performing Organization Address City/[facility]/ZIP Co de Phone Number [facility] [place] [address] * (ABNORMAL) POCT heparin/ACT CPB (01/20/2024 12:16 PM CDT) Pathologist [facility] Heparin POC 4.1 units/mL ACT, CPB 559(H) 112 - 174 sec [facility] Blood 01/20/2024 12:1 6 PM CDT 01/20/2024 12:16 PM CDT Stan Treviño MD LAB POCT ORDERABLES - DEVICE Final Result Performing Organization Address [facility] de Phone Number [facility] [place] [address] * (ABNORMAL) POC Blood Gas and Chemistries, Arterial - (01/20/2024 12:16 PM CDT) [facility] pH, Art POC 7.34(L) 7.35 - 7.45 pCO2, Art POC 40 35 - 45 mmHg [facility] pO2, Art POC 252(H) 83 - 108 mmHg [facility] Na, POC 143 135 - 145 mmol/L [facility] K POC 4.4 3.3 - 4.9 mmol/L [facility] Comment: Interpretive Data Not all point of care methods assess for hemolysis. Confirm with instrument and retest K+ if not consistent with clinical signs and symptoms. Current Interpretive Data was last revised on 2023. Cl, POC 114(H) 97 - 110 mmol/L [facility] Ionized Ca, POC 4.52 4.50 - 5.10 mg/dL [facility] Glucose, POC 199 70 - 199 mg/dL [facility] Lactate, POC 0.9 0.7 - 2.2 mmol/L [facility] SO2 (kristy) arterial 100(H) 90 - 95 % [facility] Base excess, POC -3.9 mmol/L [facility] HCO3, Art POC 22 20 - 30 mmol/L [facility] Hct, POC 26.0(L) 36.3 - 45.3 % [facility] Total Hb, POC 8.5(L) 11.9 - 15.5 g/dL [facility] Blood 01/20/2024 12:1 6 PM CDT 01/20/2024 12:16 PM CDT Stan Treviño MD LAB POCT ORDERABLES - DEVICE Final Result Performing Organization Address City/[facility]/ZIP Co de Phone Number [facility] [place] [address] * (ABNORMAL) POCT heparin/ACT CPB (01/20/2024 11:47 AM CDT) Heparin POC >4.7 units/mL ACT, CPB 733(H) 112 - 174 sec [facility] Blood 01/20/2024 11:4 7 AM CDT 01/22/2024 8:07 AM CDT Stan Treviño MD LAB POCT ORDERABLES - DEVICE Final Result Performing Organization Address City/[facility] Co de Phone Number [facility] [place] [address] * (ABNORMAL) POC Blood Gas and Chemistries, Arterial - (01/20/2024 11:46 AM CDT) pH, Art POC 7.28(L) 7.35 - 7.45 pCO2, Art POC 35 35 - 45 mmHg [facility] pO2, Art POC 310(H) 83 - 108 mmHg [facility] Na, POC 142 135 - 145 mmol/L [facility] K POC 4.4 3.3 - 4.9 mmol/L [facility] Comment: Interpretive Data Not all point of care methods assess for hemolysis. Confirm with instrument and retest K+ if not consistent with clinical signs and symptoms. Current Interpretive Data was last revised on 2023. Cl, POC 111(H) 97 - 110 mmol/L [facility] Ionized Ca, POC 4.06(L) 4.50 - 5.10 mg/dL [facility] Glucose, POC 183 70 - 199 mg/dL [facility] Lactate, POC 0.8 0.7 - 2.2 mmol/L [facility] SO2 (kristy) arterial 100(H) 90 - 95 % [facility] Base excess, POC -9.5 mmol/L [facility] HCO3, Art POC 18(L) 20 - 30 mmol/L [facility] Hct, POC 26.0(L) 36.3 - 45.3 % [facility] Total Hb, POC 8.8(L) 11.9 - 15.5 g/dL [facility] Blood 01/20/2024 11:4 6 AM CDT 01/20/2024 11:46 AM CDT Stan Treviño MD LAB POCT ORDERABLES - DEVICE Final Result [facility] [place] [address] * (ABNORMAL) POCT heparin/ACT CPB (01/20/2024 11:14 AM CDT) Pathologist [facility] Heparin POC 4.1 units/mL ACT, CPB 538(H) 112 - 174 sec [facility] Blood 01/20/2024 11:1 4 AM CDT 01/20/2024 11:14 AM CDT Stan Treviño MD LAB POCT ORDERABLES - DEVICE Final Result [facility] [place] [address] * POCT heparin dose response, CPB (01/20/2024 9:33 AM CDT) Baseline ACT POC 141 112 - 174 sec Heparin dose response slope POC 83 60 - 195 [facility] Projected Heparin Concentration POC 4.1 units/mL [facility] Blood 01/20/2024 9:33 AM CDT 01/20/2024 9:33 AM CDT us Stan Treviño MD LAB POCT ORDERABLES - DEVICE Final Result [facility] [place] [address] * (ABNORMAL) POC Blood Gas and Chemistries, Arterial - (01/20/2024 9:33 AM CDT) Pathologist [facility] pH, Art POC 7.39 7.35 - 7.45 pCO2, Art POC 32(L) 35 - 45 mmHg [facility] pO2, Art POC 342(H) 83 - 108 mmHg [facility] Na, POC 141 135 - 145 mmol/L [facility] K POC 3.7 3.3 - 4.9 mmol/L [facility] Comment: Interpretive Data Not all point of care methods assess for hemolysis. Confirm with instrument and retest K+ if not consistent with clinical signs and symptoms. Current Interpretive Data was last revised on 2023. Cl, POC 113(H) 97 - 110 mmol/L [facility] Ionized Ca, POC 4.83 4.50 - 5.10 mg/dL [facility] Glucose, POC 146 70 - 199 mg/dL [facility] Lactate, POC 1.0 0.7 - 2.2 mmol/L [facility] SO2 (kristy) arterial 100(H) 90 - 95 % [facility] Base excess, POC -4.8 mmol/L [facility] HCO3, Art POC 21 20 - 30 mmol/L [facility] Hct, POC 33.0(L) 36.3 - 45.3 % [facility] Total Hb, POC 11.0(L) 11.9 - 15.5 g/dL [facility] Blood 01/20/2024 9:33 AM CDT 01/20/2024 9:33 AM CDT us Stan Treviño MD LAB POCT ORDERABLES - DEVICE Final Result Performing Organization Address [facility] [place] [address] * JULIANO Add-On For OR (01/20/2024 8:24 AM CDT) Narrative [facility] PROSOLV_CARDIOREPORT_CONS SCIMAGE - 01/20/2024 8:24 AM CDT Procedure Auto Finalized by Rule: ELENITA CV JULIANO DURING CASE OR Please see the Anesthesiologist's Procedure Note for the results. us Diogo Smith MD CV ECHO PROCEDURES Final Result Performing Organization Address [facility] de Phone Number [facility] PROSOLV_CARDIOREPORT_CONS SCIMAGE * POCT glucose (01/20/2024 6:55 AM CDT) Glucose, POC 147 70 - 199 mg/dL Blood 01/20/2024 6:55 AM CDT 01/20/2024 6:55 AM CDT Stan Treviño MD LAB POCT ORDERABLES - DEVICE Final Result Performing Organization Address [facility] de Phone Number [facility] [place] [address] * Prepare RBC: 4 Units (01/20/2024 6:24 AM CDT) Product code [id number] [facility] Unit Number [id number] 6-E [facility] Product Blood Type APOS [facility] Dispense Status RETURNED [facility] Product code [id number] [facility] Unit Number [id number] 2-5 [facility] Product Blood Type APOS [facility] Dispense Status RETURNED [facility] Product code S5992K45 Unit Number [id number] 1-X [facility] Product Blood Type APOS [facility] Dispense Status RETURNED [facility] Product code [id number] [facility] Unit Number [id number] 7-H [facility] Product Blood Type APOS [facility] Dispense Status RETURNED [facility] Blood 01/20/2024 6:24 AM CDT 01/20/2024 6:23 AM CDT Narrative [facility] - 01/20/2024 4:29 PM CDT Specify Procedure:->CABG Are special requirements needed? 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, multiple vessel Type 2 diabetes mellitus (HCC) 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, with long-term current use of insulin, unspecified laterality (HCC) S/P CABG x 3 Postsurgical aortocoronary bypass status Coronary artery disease, unspecified vessel or lesion type, unspecified whether angina present, unspecified whether [place] or transplanted heart documented in this encounter Admitting Diagnoses Diagnosis Coronary artery disease Coronary atherosclerosis of unspecified type of vessel, [place] or graft Coronary artery disease due to [...] Katharine Finney RN) 0837 (Given - Provider: Kahtarine Finney RN) atorvastatin (LIPITOR) tablet 40 mg [...] - Provider: Marion Aaron)2107 (Given - Provider: Carmiat Eden RN) 0916 (Given - Provider: Katharine [...] HR <60 0828 (Given - Provider: Marion Aaron)2108 (Given - Provider: Carmita Eden RN) 09 (Given - Provider: Katharine Finney RN)2043 (Given - Provider: Carmita Eden RN) metoprolol [...] 360 mg/200 mL (1.8 mg/mL) infusion (premix) 01/25/2024 potassium chloride ER (KLOR- CON) extended [...] 01/2024 senna (SENOKOT) tablet 1 tablet 1 senna 1.76 mg/mL syrup 8.8 mg 1 [...] Surveillance for admission to 73. CAP[facility] Tolbert [facility] 01/21/2024 01/21/2024 02/04/2024 3:05 AM C DT documented as of this encounter Care Teams Director Of Hotel Relationship Specialty Start Date End Date Elpidio Serrato MD PCP - General Internal Medicine 06/09/18 documented as of this encounter
--- OUTSIDE RECORDS SUMMARY | 2024-05-20 07:55 | XMS_ITS | Encounter Summary ---
Author Organization [facility] Address [address] [place] [address] Phone Care Team Providers Care Agronomy Technician Name Role Phone Elpidio Serrato MD Primary Care Provider [phone] Encounter Details Date Type Department Care Team (Late st Contact Info) Description 12/05/2023 Telephone [facility] Cardiology [address] [facility] [address] [facility] 8th [place] [address] [place] [phone] Rater, JAMES Dunlap [address] [facility] [address] [place] [address] Social History Tobacco Use Types Packs/Day Years [...] on file 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 She went there to have labs drawn but they do not have them. Patient would like to be notified once orders are sent so she knows to go have them done. documented in this encounter Plan of Treatment Not on file documented as of this encounter Visit Diagnoses Not on filedocumented in this encounter Care Teams Agronomy Technician Relationship Specialty Start Date End Date Elpidio Serrato MD PCP - General Internal Medicine 06/09/18 documented as of this encounter
--- OUTSIDE RECORDS SUMMARY | 2024-05-20 07:55 | XMS_ITS | Encounter Summary ---
Author Organization [facility] Address [address] [facility] [address] [place] [address] Phone Care Team Providers Care Security And Compliance Analyst Name Role Phone Elpidio Serrato MD Primary Care Provider [phone] Encounter Details Date Type Department Care Team (Late st Contact Info) Description 12/04/2023 Telephone [facility] Surgery [address] [facility] 8th [place] [address] [place] [phone] Stan Treviño MD [address] [facility] [place] [place] [address] [place] [address] Social History Tobacco Use Types [...] on file 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
--- OUTSIDE RECORDS SUMMARY | 2024-05-20 07:55 | XMS_ITS | Encounter Summary ---
Author Organization [facility] Address [address] [place] [address] Phone Care Team Providers Care Operations Welder Name Role Phone Elpidio Serrato MD Primary Care Provider [phone] Encounter Details Date Type Department Care Team (Late st Contact Info) Description 11/03/2023 Orders Only [facility] Endocrinology Metabolism and Lipid [address] [facility] Medicine 13th [place] [address] [place] [address] Merna Bell MD [address] [facility] [address] [place], [place] [id number] Acute cystitis without hematuria (Primary Dx) Social [...] Primary documented in this encounter Care Teams Operations Welder Relationship Specialty Start Date End Date Elpidio Serrato MD PCP - General Internal Medicine 06/09/18 documented as of this encounter
--- OUTSIDE RECORDS SUMMARY | 2024-05-20 07:55 | XMS_ITS | Encounter Summary ---
Author Organization [facility] Address [address] [place] [address] Phone Care Team Providers Care Allopathic Doctor Name Role Phone Elpidio Serrato MD Primary Care Provider [phone] Encounter Details Date Type Department Care Team (Late st Contact Info) Description 11/20/2023 Orders Only [facility] Cardiology [address] [facility] Advanced Medicine 8th [place] [address] [place] [address] Rater, JAMES Dunlap [address] [facility] [address] [place] [address] Abnormal stress echocardiogram (Primary Dx) Social History [...] on file 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
--- OUTSIDE RECORDS SUMMARY | 2024-05-20 07:55 | XMS_ITS | Encounter Summary ---
Author Organization [facility] Healthcare Address [address] [place] [address] Care Team Providers Care Mounter Sousaphones Name Role Phone Elpidio Serrato MD Primary Care Provider [phone] Reason for Visit * Auth/Cert (Routine) Specialty Diagnoses / Procedures Referred By Contac t Referred To Contact Diagnoses Abnormal cardiovascular stress test Abnormal stress echocardiogram Stable angina (HCC) Procedures n/a Referral ID Status Reason Start Date Expiration Date Visits Re quested Visits Authorized [id number] 1 1 Encounter Details Date Type Department Care Team (Latest Contact Info) Description 11/15/2023 2:56 PM CDT - 11/16/2023 3:18 PM CDT Hospital Encounter [facility] [address] [place] [address] Gris Molina MD [address] [facility] [address] [place] [address] Kolby Robles MD [address] [facility]ITA [address] [place] [id number] Abnormal stress echocardiogram (Primary Dx) Discharge Disposition: [...] on file 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 When you are discharged, please: Continue taking all medications as previously prescribed Call your aeronautical design engineer on Saturday and schedule either an appointment or date for an elective heart cath Follow up with your sammying machine operator on diabetes management If you gain 3 lbs in one day or 5 pounds in a week, please take an extra dose of lasix (20 mg) and call your aeronautical design engineer for more instructions. If you have any [...] CAM 13B LYON EML 01/20/2024 8:50 AM [facility] GENERAL TESTING OP TEST [facility]6 OP 01/20/2024 9:00 AM [facility] GENERAL TESTING OP TEST [facility]6 OP 01/20/2024 9:30 AM Makayla Ramos MD [facility] 6 OP 02/14/2024 11:30 AM Fabi Collier NP CAR CAM 8B Cardiology 05/04/2024 9:20 AM Merna Bell MD EML CAM 13B [facility] EML Kaushik Cuadra MD PhD PGY-1, Internal [...] is important to follow up with your aeronautical design engineer to obtain a diagnostic heart cath in the near future. When you are discharged, please: Continue taking all medications as previously prescribed Call your aeronautical design engineer on Saturday and schedule either an appointment or date for an elective heart cath Follow up with your sammying machine operator on diabetes management If you gain 3 lbs in one day or 5 pounds in a week, please take an extra dose of lasix (20 mg) and call your aeronautical design engineer for more instructions. If you have any [...] 73 y.o. female Admit Date: 11/15/2023 Bed: [id number] LOS: 0 days Subjective Isabelle Lutz is [...] flush 0.5-20 mL 0.5-20 mL intra-catheter Q8H [facility] Kaushik Cuadra MD 10 mLat 11/15/231653 And [...] injection 5,000 Units 5,000 Units subcutaneous Q8H [facility] Kaushik Cuadra MD [START ON 11/16/2023] insulin [...] AR; NoMS/ mild MR; No TR; No RI. Diastolic [...] 2=Hypo 3=Akinetic 4=Dyskin./Aneurysm 0=Not visualized) Parasternal Long [place]:MAS=1 BAS=1 MIL=3 ROBERT=3 Parasternal Short [place]:MAS=1 MIS=1 TX=1 MIL=3MAL=1 MA=1 Apical 4 Chambers:=1 MIS=1 BIS=1 BAL=1 MAL=1 AL=1 AC=2 Apical 2 Chambers:AI=1 TX=1 BI=3 BA=1 MA=1 AA=1 AC=2 Intrav enous [...] and electrolyte surveillance. Congestive heart failure (CMS/HCC) ([facility]) Assessment & Plan - Jardiance [...] PM CDT Patient discharged home, assisted to manager er services by RN. Patient given discharge instructions, [...] Medicare A/B, BCBS Prescription Coverage: yes Pharmacy: [email or web address] - LYNNE Clark - [facility] AT Portal to Registered [facility] Amber [place] [address] [facility]/pharmacy [address] [place] [address] [address] [address] Primary Care Provider: Elpidio Serrato MD Prior [...] Collaboration with Patient, Provider, Direct Care Nurse, Paper Cup Machine Tender, and other members of theHealth Care Team to assure needed interventions completed. 2. Return patient to optimal level of self-care post discharge. 3. Final Assembly Inspector will follow for Discharge Planning - interventions [...] the Shift: Patient will remain hemodynamically stable Fpc Patient Centered Goal for Treatment: pt will [...] the Shift: patient will remain hemodynamically stable Material Carrier Patient Centered Goal for Treatment: pt will [...] Associated Problem(s): DM2 (diabetes mellitus, type 2) ([facility]) - Lispro TID meals - [...] albuminuria creatinine ratio less than 30 mg/g ([facility]) - Tums for phosphate binding [...] DEVICE Fin al Result Performing Organization Address [facility]/ZIP Co de Phone Number [facility] Department [place] [address] * POCT glucose (11/16/2023 7:54 AM CDT) Glucose, POC 84 70 - 199 mg/dL Blood 11/16/2023 7:54 AM CDT 11/16/2023 7:54 AM CDT Kolby Robles MD LAB POCT ORDERABLES - DEVICE Fin al Result [facility] [place] [address] * (ABNORMAL) Troponin I high-sensitivity (11/16/2023 6:15 AM CDT) Trop I hs 20(H) <=17 ng/L Comment: Interpretive Data For further hscTnI resources including the diagnostic algorithm and an aid in interpretation, copy and paste this link: [email or web address]/show/[email or web address] Current Interpretive Data last revised 2019. Blood 11/16/2023 6:15 AM CDT 11/16/2023 6:49 AM CDT us Kolby Robles MD LAB BLOOD ORDERABLES Final Resul t Performing Organization Address [facility] Co de Phone Number [facility] [place] [address] * (ABNORMAL) Troponin I high-sensitivity (11/15/2023 9:33 PM CDT) Trop I hs 25(H) <=17 ng/L Comment: Interpretive Data For further hscTnI resources including the diagnostic algorithm and an aid in interpretation, copy and paste this link: [email or web address]/show/[email or web address] Current Interpretive Data last revised 2019. Blood 11/15/2023 9:33 PM CDT 11/15/2023 10:35 PM CDT us Kolby Robles MD LAB BLOOD ORDERABLES Final Resul t [facility] [place] [address] * POCT glucose (11/15/2023 7:57 PM CDT) Glucose, POC 111 70 - 199 mg/dL Blood 11/15/2023 7:57 PM CDT 11/15/2023 7:57 PM CDT Kolby Robles MD LAB POCT ORDERABLES - DEVICE Fin al Result Performing Organization Address City/[facility] Co de Phone Number [facility] [place] [address] * Check Sample (11/15/2023 6:58 PM CDT) ABO Rh A Positive [facility] HCLL OTHER 11/15/2023 6:58 PM CDT 11/15/2023 7:20 PM CDT Result [facility] Kolby Robles MD LAB BLOOD ORDERABLES Final Resul t Performing Organization Address [facility] Co de Phone Number [facility] [place] [address] [facility] * (ABNORMAL) Troponin I high-sensitivity (11/15/2023 6:02 PM CDT) Trop I hs 22(H) <=17 ng/L Comment: Interpretive Data For further [facility] resources including the diagnostic algorithm and an aid in interpretation, copy and paste this link: [email or web address]/show/[email or web address] Current Interpretive Data last revised 2019. Blood 11/15/2023 6:02 PM CDT 11/15/2023 6:57 PM CDT Kaushik Cuadra MD LAB BLOOD ORDERABLES Final Result Performing Organization Address [facility]/ZIP Co de Phone Number [facility] [place] [address] * (ABNORMAL) eGFR (11/15/2023 5:12 PM CDT) [...] ORDERABLES Final Resul t Performing Organization Address City/State/[facility] Co de Phone Number [facility] Department [place] [address] * Differential, auto (11/15/2023 5:12 PM CDT) Pathologist [facility] Neutrophil abs 5.3 1.5 - 6.5 K/cumm Imm gran abs 0.0 0.0 - 0.1 K/cumm [facility] Lymphocyte abs 1.8 0.8 - 3.3 K/cumm [facility] Monocyte abs 0.6 0.2 - 0.8 K/cumm [facility] Eosinophil abs 0.1 0.0 - 0.5 K/cumm [facility] Basophil abs 0.0 0.0 - 0.1 K/cumm [facility] Neutrophil pct 67.7 % [facility] Comment: Interpretive Data Percent cell count reference ranges are not reported, since discordance with absolute values may lead to misinterpretation of CBC data. Current Interpretive Data was last revised on 2017. Imm gran pct 0.4 % [facility] Comment: Interpretive Data Percent cell count reference ranges are not reported, since discordance with absolute values may lead to misinterpretation of CBC data. Current Interpretive Data was last revised on 2017. Lymphocyte pct 23.1 % [facility] Comment: Interpretive Data Percent cell count reference ranges are not reported, since discordance with absolute values may lead to misinterpretation of CBC data. Current Interpretive Data was last revised on 2017. Monocyte pct 7.3 % [facility] Comment: Interpretive Data Percent cell count reference ranges are not reported, since discordance with absolute values may lead to misinterpretation of CBC data. Current Interpretive Data was last revised on 2017. Eosinophil pct 1.0 % [facility] Comment: Interpretive Data Percent cell count reference ranges are not reported, since discordance with absolute values may lead to misinterpretation of CBC data. Current Interpretive Data was last revised on 2017. Basophil pct 0.5 % [facility] Comment: Interpretive Data Percent cell count reference ranges are not reported, since discordance with absolute values may lead to misinterpretation of CBC data. Current Interpretive Data was last revised on 2017. Blood 11/15/2023 5:12 PM CDT 11/15/2023 6:02 PM CDT us Kolby Robles MD LAB BLOOD ORDERABLES Final Resul t [facility] [place] [facility] Department [place] [address] * aPTT (11/15/2023 5:12 PM CDT) aPTT [...] ORDERABLES Final Resul t Performing Organization Address [facility] de Phone Number [facility] [place] [address] * Protime-INR (11/15/2023 5:12 PM CDT) PT 12.1 10.3 - 13.7 sec INR 1.06 0.90 - 1.20 [facility] Comment: Interpretive data Oral anticoagulant therapeutic ranges: Venous thromboembolism prophylaxis or treatment: 2.0-3.0 CARDIOLOGY Standard range: 2.0-3.0 High-intensity range: 2.5-3.5 Refer to indication-specific guidelines for appropriate target ranges for prosthetic heart valve replacement. Current interpretive data was last revised on 2019. Blood 11/15/2023 5:12 PM CDT 11/15/2023 6:06 PM CDT Result [facility] us Kolby Robles MD LAB BLOOD ORDERABLES Final Resul t Performing Organization Address [facility] [place] [address] * Iron profile w/ IBC (11/15/2023 5:12 PM CDT) Iron 69 35 - 145 mcg/dL TIBC 306 250 - 400 mcg/dL [facility] Transferrin saturation 23 20 - 50 % [facility] Blood 11/15/2023 5:12 PM CDT 11/15/2023 6:01 PM CDT us Kolby Robles MD LAB BLOOD ORDERABLES Final Resul t Performing Organization Address City/[facility] Co de Phone Number [facility] [place] [address] * Type and screen (11/15/2023 5:12 PM CDT) Pathologist [facility] ABO Rh A Positive Sergio, indirect Negative [facility] Blood 11/15/2023 5:12 PM CDT 11/15/2023 6:17 PM CDT Narrative [facility] - 11/15/2023 7:22 PM CDT Has the patient had Daratumumab or Isatuximab in the past 6 months?->Unknown us Kolby Robles MD LAB BLOOD BANK TEST ORDERABLES F inal Result Performing Organization Address City/[facility] Co de Phone Number [facility] Department [place] [address] * (ABNORMAL) CBC with auto differential (11/15/2023 5:12 PM CDT) [facility] WBC 7.8 3.8 - 9.9 K/cumm Hgb 11.5(L) 11.9 - 15.5 g/dL [facility] Hct 35.3(L) 35.6 - 45.5 % [facility] Plt 201 150 - 400 K/cumm [facility] MPV 11.2 9.1 - 12.3 fL [facility] RBC 3.93 3.90 - 5.20 M/cumm [facility] MCV 89.8 81.3 - 96.4 fL [facility] MCH 29.3 27.1 - 33.3 pg [facility] MCHC 32.6 32.3 - 35.7 g/dL [facility] RDW CV 12.3 11.1 - 14.9 % [facility] RDW SD 41.1 35.7 - 48.1 fL [facility] NRBC abs 0.00 0.00 - 0.01 K/cumm [facility] Blood 11/15/2023 5:12 PM CDT 11/15/2023 6:02 PM CDT us Kolby Robles MD LAB BLOOD ORDERABLES Final Resul t [facility] Department [place] [address] * (ABNORMAL) Pro B-type natriuretic peptide (11/15/2023 [...] ORDERABLES Final Resul t Performing Organization Address City/[facility]/ZIP Co de Phone Number [facility] Department [place] [address] * Magnesium (11/15/2023 5:12 PM CDT) Pathologist [facility] Magnesium 1.9 1.4 - 2.5 mg/dL Blood 11/15/2023 5:12 PM CDT 11/15/2023 6:01 PM CDT Kolby Robles MD LAB BLOOD ORDERABLES Final Resul t Performing Organization Address [facility] Co de Phone Number [facility] Department [place] [address] * (ABNORMAL) Comprehensive metabolic panel (11/15/2023 5:12 PM CDT) Sodium 147(H) 135 - 145 mmol/L Potassium, pl 3.7 3.3 - 4.9 mmol/L [facility] Chloride 113(H) 97 - 110 mmol/L [facility] CO2 23 22 - 32 mmol/L [facility] Anion gap 11 2 - 15 mmol/L [facility] BUN 27(H) 6 - 25 mg/dL [facility] Creatinine 1.04 0.60 - 1.10 mg/dL [facility] Glucose 77 70 - 199 mg/dL [facility] [...] ORDERABLES Final Resul t Performing Organization Address City/[facility]/ZIP Co de Phone Number [facility] Department [place] [address] * POCT glucose (11/15/2023 4:14 PM CDT) Glucose, POC 78 70 - 199 mg/dL Blood 11/15/2023 4:14 PM CDT 11/15/2023 4:14 PM CDT us Kolby Robles MD LAB POCT ORDERABLES - DEVICE Fin al Result Performing Organization Address [facility]/ZIP Co de Phone Number [facility] Department [place] [address] documented in this encounter Visit Diagnoses Diagnosis [...] attest that the patient meets the approved [facility] Use Criteria: Yes, Approving Provider: Margaret, [...] attest that the patient meets the approved [facility] Use Criteria: Yes, Approving Provider: Margaret, [...] 11/15/2023 documented in this encounter Care Teams Mounter Sousaphones Relationship Specialty Start Date End Date Elpidio Serrato MD PCP - General Internal Medicine 06/09/18 documented as of this encounter
--- OUTSIDE RECORDS SUMMARY | 2024-05-20 07:55 | XMS_ITS | Encounter Summary ---
Author Organization [facility] Healthcare Address [address] [place] [address] Care Team Providers Care Photoflash Powder Mixer Name Role Phone Elpidio Serrato MD Primary Care Provider [phone] Reason for Visit * Auth/Cert (Routine) Specialty Diagnoses / Procedures Referred By Contac t Referred To Contact Diagnoses Abnormal stress echocardiogram Abnormal stress echocardiogram [R94.39] Procedures Right Left Heart Catheterization with Coronary Angiography with or without Left Ventriculography 43310 Referral ID Status Reason Start Date Expiration Date Visits Re quested Visits Authorized [id number] 1 1 Encounter Details Date Type Department Care Team (Late st Contact Info) Description 11/25/2023 6:46 AM CDT - 11/25/2023 2:00 PM CDT Hospital Encounter [facility] [address] [place] [address] Kvng Gibson MD [address] [address] Abnormal stress echocardiogram Discharge Disposition: Discharge to [...] on file Legal Sex Female 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 If you notice bleeding at the [...] M-F call our Outpatient Nurse Coordinators at [phone]. If you need to speak to someone after 5pm please call [facility] at [phone] and ask the continuous still operator topage the Cardiac Supervisor Weaving Fellow water pollution specialist. documented in this encounter Medications at Time [...] recently positive stress test who presented to [facility] today for LHC. Over the past three [...] LHC which showed severe MV CAD with SCIENTIFIC ADVISOR of RCA, heavily calcified disease in the [...] CHF (congestive heart failure) (CMS/HCC) ([facility]) Coronary artery disease Diabetes mellitus (HCC) Diabetic [...] 650 mg, oral, Q4H PRN, Adrianna Vargas, PAPER PROCESSING MACHINE HELPER Carrier Fluids for Secondary Infusion - 0.9% Sodium Chloride, 30 mL, intravenous, PRN, Adrianna Vargas, PAPER PROCESSING MACHINE HELPER sodium chloride 0.9% flush 0.5-20 mL, 0.5-20 mL, intra-catheter, Q8H LAMONTE, Adrianna Vargas, PAPER PROCESSING MACHINE HELPER sodium chloride 0.9% flush 0.5-20 mL, 0.5-20 mL, intra-catheter, PRN, Adrianna Vargas, PAPER PROCESSING MACHINE HELPER [COMPLETED] sodium chloride 0.9% bolus 267 mL, [...] 11/25/2023 , Coags: No results found for: RI , PT , PTT , APTT , [...] of test: 11/15/2023 Hospital #: 0 Location: [facility] Interpreted by: Vandana Isaacs MD Media Consultant Outside Sales: Olimpia Brandon RDCS RN: Shelby Jacobo RN Reason for Test: Dyspnea Study quality: Technically good Referring Physician: GAURAV ROBLERO MD Contrast Agent: 3.0 ml Optison Administered BASELINE STUDY: Wall Motion Scoring (1=Normal 2=Hypo 3=Akinetic 4=Dyskin./Aneurysm 0=Not visualized) Parasternal Long [place]:MAS=1 BAS=1 MIL=2 ROBERT=2 Parasternal Short [place]:MAS=1 MIS=1 AR=1 MIL=2 MAL=1 MA=1 Apical 4 Chambers:=1 MIS=1 BIS=3 BAL=1 MAL=1 AL=1 AC=3 Apical 2 Chambers:AI=1 AR=1 BI=3 BA=1 MA=1 AA=2 AC=3 Ejection Fraction: [...] RBBB + LAFB Resting ECG Comments: [facility] Medications: Lasix, Aspirin, Lipitor, evothyroxine, Metformin, Insulin Meds held: none POST DOBUTAMINE STUDY: Wall Motion Scoring (1=Normal 2=Hypo 3=Akinetic 4=Dyskin./Aneurysm 0=Not visualized) Parasternal Long [place]:MAS=1 BAS=1 MIL=3 ROBERT=3 Parasternal Short [place]:MAS=1 MIS=1 AR=1 MIL=3 MAL=1 MA=1 Apical 4 Chambers:=1 MIS=1 BIS=1 BAL=1 MAL=1 AL=1 AC=2 Apical 2 Chambers:AI=1 AR=1 BI=3 BA=1 MA=1 AA=1 AC=2 Intravenous dobutamine [...] MD By signing this report, the attending wire winder certifies that he or she has personally [...] system. Occluded in the proximal segment with [id number] septal collaterals from the LAD COMPLICATIONS: None. [...] recently positive stress test who presented to [facility] today for LHC. 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, heavily calcified disease in the [...] Chloride 30 mL intravenous PRN Adrianna Vargas, PAPER PROCESSING MACHINE HELPER sodium chloride 0.9% bolus 267 mL 3 mL/kg intravenous Once Adrianna Vargas, JAMES Followed by sodium chloride 0.9% infusion 1 mL/kg/hr intravenous Continuous Adrianna Vargas, JAMES sodium chloride 0.9% flush 0.5-20 mL 0.5-20 mL intra-catheter Q8H LAMONTE Adrianna Vargas, JAMES sodium chloride 0.9% flush 0.5-20 mL 0.5-20 mL intra-catheter PRN Adrianna Vargas, PAPER PROCESSING MACHINE HELPER Laboratory review: Chemistry BMP No results found for: GLUCOSE , CALCIUM , SODIUM , POTASSIUM , CO2 , BUNSER , CREATININE , CBC:No results found for: WBC , RBC , HGB , HCT , MCV , MCH , MCHC , RDW , RDWCV , RDWSD , MPV , NRBC , NRBCABS , NRBCPCT , and Coags: No results found for: RI , PT , PTT , APTT , [...] : 1950 Date of Procedure: 11/25/2023 ORDERING CLINICAL TRIAL ASSISTANT: Surgeon(s): Kvng Gibson MD Procedure(s): Right Left Heart Catheterization with Coronary Angiography with or without Left Ventriculography [id number] Requested Diagnostic: [] Coronary Angiograms Only [] [...] + stress test on 11/15/23. Referred for [facility] for further evaluation. ALLERGIES: Pseudoephedrine and Valacyclovir [...] Yes [] No [] Contraindicated Indications for Supervisor Weaving visit (Select all that apply): [] ACS [...] ESRD [] Dialysis [] HD []PD: Prior AR: [] Yes [x] No If Yes, Most Recent AR Date: Tobacco Use Social History Tobacco Use [...] Yes, Newly Diagnosed: [x] Yes [] No [facility] Class: [] Class I [] [...] abnormal stress test here for [facility] Clinical Frailty Scale: [] 1: Very [...] and Assessment Completed by: Name: Adrianna Vargas PAPER PROCESSING MACHINE HELPER-C Date: 11/25/23 Time: 729 Cosigned by Kvng [...] were not included. ?? Cardiovascular Procedure Center [facility] [address], [address] [place] [id number] CORONARY ANGIOGRAM REPORT Patient: Isabelle Lutz : ?? 1950 MR number: [id number] Date of Service: 11/25/2023 Mobile Ui Developer: ?? Kvng Gibson MD Referring physician: ?? [...] The patient was brought to the labor delivery rn and placed on the table. The RIGHT [...] left ventriculogram was done. I provided direct yiyh-xl-smtu moderate conscious sedation which administered by independent [...] system. ??Occluded in the proximal segment with xguk-rr-fipet septal collaterals from the LAD COMPLICATIONS: None. DIAGNOSTIC Gaurav Roblero PAPER PROCESSING MACHINE HELPER CV CARDIAC CATH PROCEDURES Final Result * (ABNORMAL) CBC without differential (11/25/2023 8:50 AM CDT) [facility] Signature WBC 7.0 3.8 - 9.9 K/cumm Hgb 10.6(L) 11.9 - 15.5 g/dL [facility] Hct 32.2(L) 35.6 - 45.5 % [facility] Plt 165 150 - 400 K/cumm [facility] MPV 11.2 9.1 - 12.3 fL [facility] RBC 3.65(L) 3.90 - 5.20 M/cumm [facility] MCV 88.2 81.3 - 96.4 fL [facility] MCH 29.0 27.1 - 33.3 pg [facility] MCHC 32.9 32.3 - 35.7 g/dL [facility] RDW CV 12.5 11.1 - 14.9 % [facility] RDW SD 40.1 35.7 - 48.1 fL [facility] NRBC abs 0.00 0.00 - 0.01 K/cumm [facility] Blood 11/25/2023 8:50 AM CDT 11/25/2023 9:22 AM CDT Narrative [facility] - 11/25/2023 9:37 AM CDT To be drawn after hydration bolus complete us Adrianna Vargas NP LAB BLOOD ORDERABLES Final Re sult [facility] [place] [address] * POCT glucose (11/25/2023 8:06 AM CDT) [facility] Signature Glucose, POC 111 70 - 199 mg/dL Blood 11/25/2023 8:06 AM CDT 11/25/2023 8:06 AM CDT us Kvng Gibson MD LAB POCT ORDERABLES - DEVICE Final Result [facility] [place] [address] documented in this encounter Visit Diagnoses Diagnosis [...] 11/25/2023 documented in this encounter Care Teams Photoflash Powder Mixer Relationship Specialty Start Date End Date Elpidio Serrato MD PCP - General Internal Medicine 06/09/18 documented as of this encounter
--- OUTSIDE RECORDS SUMMARY | 2024-05-20 07:55 | XMS_ITS | Encounter Summary ---
Author Organization [facility] Address [address] [place] [address] Care Team Providers Care Bpm Developer Name Role Phone Elpidio Serrato MD Primary Care Provider [phone] Reason for Referral * Cardiology (Routine) - Closed Specialty Diagnoses / Procedures Referred By Constantino alvarado Referred To Contact Diagnoses Dyspnea on exertion Congestive heart failure, unspecified HF chronicity, unspecified heart failure type (HCC) ROSE (dyspnea on exertion) Procedures Stress Echo Pharmacologic W Doppler/CF Gaurav Collier NP Phone: tel: fax: [address] [address] Referral ID Status Reason Start Date Expiration Date Visits Re quested Visits Authorized [id number] Closed 11/08/2023 12/07/2024 1 1 Reason for Visit * Auth/Cert (Routine) Specialty Diagnoses / Procedures Referred By Contqi t Referred To Contact Diagnoses Abnormal cardiovascular stress test Abnormal stress echocardiogram Stable angina (HCC) Procedures n/a Referral ID Status Reason Start Date Expiration Date Visits Re quested Visits Authorized [id number] 1 1 Encounter Details Date Type Department Care Team (Latest Contact Info) Description 11/15/2023 9:28 AM CDT - 11/15/2023 11:59 PM CDT Hospital Encounter [facility] Cardiac Diagnostic Lab [address] [place] [id number] Dyspnea on exertion; Congestive heart failure, unspecified [...] on file Legal Sex Female 3:59 AM RETAIL SEASONAL SPECIALIST Gender Identity Female 05/13/2021 4:21 PM RETAIL SEASONAL SPECIALIST Sexual Orientation Not on file documented [...] of test: 11/15/2023 Hospital #: 0 ?Location: [facility] Interpreted by: Vandana Isaacs MD Pattern Drafter: Olimpia Brandon RDCS RN: Shelby Jacobo RN Reason for Test: Dyspnea Study quality: Technically good Referring Physician: GAURAV COLLIER MD Contrast Agent: 3.0 ml Optison Administered BASELINE STUDY: Wall Motion Scoring (1=Normal 2=Hypo 3=Akinetic 4=Dyskin./Aneurysm 0=Not visualized) Parasternal Long [place]:MAS=1 BAS=1 MIL=2 ROBERT=2 Parasternal Short [place]:MAS=1 MIS=1 PA=1 MIL=2 MAL=1 MA=1 Apical 4 Chambers:=1 MIS=1 BIS=3 BAL=1 MAL=1 AL=1 AC=3 Apical 2 Chambers:AI=1 PA=1 BI=3 BA=1 MA=1 AA=2 AC=3 Ejection Fraction: [...] No MS/ mild MR; No TR; No SD. Diastolic Function: Grade I (impaired relaxation) with nl est filling pressures.Unable to estimate PASP d/t inadequate TR jet. Baseline HR: 77 Baseline BP: 115/57 Conduction Defects: RBBB + LAFB Resting ECG Comments: [facility] Medications: Lasix, Aspirin, Lipitor, evothyroxine, Metformin, Insulin Meds held: none POST DOBUTAMINE STUDY: Wall Motion Scoring (1=Normal 2=Hypo 3=Akinetic 4=Dyskin./Aneurysm 0=Not visualized) Parasternal Long [place]:MAS=1 BAS=1 MIL=3 ROBERT=3 Parasternal Short [place]:MAS=1 MIS=1 PA=1 MIL=3 MAL=1 MA=1 Apical 4 Chambers:=1 MIS=1 BIS=1 BAL=1 MAL=1 AL=1 AC=2 Apical 2 Chambers:AI=1 PA=1 BI=3 BA=1 MA=1 AA=1 AC=2 Intravenous dobutamine [...] MD By signing this report, the attending substance abuse prevention coordinator certifies that he or she has personally supervised and interpreted the echocardiogram and has reviewed and or edited and agrees with the written comments contained within the report. Procedure Note Vandana Isaacs MD - 11/15/2023 Patient name: Isabelle Lutz Date of test: 11/15/2023 [facility] #: 0 Location: [facility] Interpreted by: Vandana Isaacs MD Pattern Drafter: Olimpia Brandon RY RN: Shelby Jacobo RN Reason for Test: Dyspnea Study quality: Technically good Referring Physician: GAURAV COLLIER MD Contrast Agent: 3.0 ml Optison Administered BASELINE STUDY: Wall Motion Scoring (1=Normal 2=Hypo 3=Akinetic 4=Dyskin./Aneurysm 0=Not visualized) Parasternal [place]:MAS=1 BAS=1 MIL=2 ROBERT=2 Parasternal Short [place]:MAS=1 MIS=1 PA=1 MIL=2 MAL=1 MA=1 Apical 4 Chambers:=1 MIS=1 BIS=3 BAL=1 MAL=1 AL=1 AC=3 Apical 2 Chambers:AI=1 PA=1 BI=3 BA=1 MA=1 AA=2 AC=3 Ejection Fraction: [...] No MS/ mild MR; No TR; No SD. Diastolic Function: Grade I (impaired relaxation) with nl est filling pressures.Unable to estimate PASP d/t inadequate TR jet. Baseline HR: 77 Baseline BP: 115/57 Conduction Defects: RBBB + LAFB Resting ECG Comments: Oriana Jensen Medications: Lasix, Aspirin, Lipitor, evothyroxine, Metformin, Insulin Meds held: none POST DOBUTAMINE STUDY: Wall Motion Scoring (1=Normal 2=Hypo 3=Akinetic 4=Dyskin./Aneurysm 0=Not visualized) Parasternal Long [place]:MAS=1 BAS=1 MIL=3 ROBERT=3 Parasternal Short [place]:MAS=1 MIS=1 PA=1 MIL=3 MAL=1 MA=1 Apical 4 Chambers:=1 MIS=1 BIS=1 BAL=1 MAL=1 AL=1 AC=2 Apical 2 Chambers:AI=1 PA=1 BI=3 BA=1 MA=1 AA=1 AC=2 Intravenous dobutamine [...] MD By signing this report, the attending substance abuse prevention coordinator certifies that he or she has personally [...] 11/15/2023 documented in this encounter Care Teams Bpm Developer Relationship Specialty Start Date End Date Elpidio Serrato MD PCP - General Internal Medicine 06/09/18 documented as of this encounter
--- OUTSIDE RECORDS SUMMARY | 2024-05-20 07:55 | XMS_ITS | Encounter Summary ---
Author Organization [facility] Address [address] [place] [address] Phone Care Team Providers Care Director Of Career Services Name Role Phone Elpidio Serrato MD Primary Care Provider [phone] Encounter Details Date Type Department Care Team (Late st Contact Info) Description 12/17/2023 Telephone [facility] Cardiology [address] [facility] Medical Office Building [address] [place] [address] Kvng Gibson MD [address] [facility] [address] [place] [address] Social History Tobacco Use Types [...] on file Legal Sex Female 3:59 AM CANARY BREEDER Gender Identity Female 05/13/2021 4:21 PM CANARY BREEDER Sexual Orientation Not on file documented as of this encounter Miscellaneous Notes * Telephone Encounter - Nori Ramirez, RN - 12/17/2023 11:46 AM CDT I spoke to pt and informed of Dr. Gibson's recommendations; she verbalizes understanding. Pt is hesitant to having f/u at the [facility] location due to distance. She will [...] after heart surgery Thanks, Kvng Gibson MD, [facility] Head Millerserver engineer documented in this encounter Plan of Treatment Not on file documented as of this encounter Visit Diagnoses Not on filedocumented in this encounter Care Teams Director Of Career Services Relationship Specialty Start Date End Date Elpidio Serrato MD PCP - General Internal Medicine 06/09/18 documented as of this encounter
--- OUTSIDE RECORDS SUMMARY | 2024-05-20 07:55 | XMS_ITS | Encounter Summary ---
Author Organization [facility] Address [address] [facility] [address] [place] [address] Phone Care Team Providers Care Starch Mangle Tender Name Role Phone Elpidio Serrato MD Primary Care Provider [phone] Encounter Details Date Type Department Care Team (Latest Contact Info) Description 11/28/2023 10:30 AM CDT Office Visit [facility] Cardiothoracic Surgery [address] [facility] 8th Floor [address] Room [address] [address] Stan Treviño MD [address] [facility] [address] [place] [address] Coronary artery disease involving la jolla heart, unspecified vessel or lesion type, unspecified [...] on file Legal Sex Female 3:59 AM PLATING FOREMAN Gender Identity Female 05/13/2021 4:21 PM PLATING FOREMAN Sexual Orientation Not on file documented as [...] this encounter Progress Notes * Columba Leslie, QA AUTOMATION ENGINEER - 11/28/2023 10:30 AM CDT DATE OF CONSULTATION: 11/28/23 REFERRING PROVIDER: Dr. Gibson REASON FOR CONSULTATION: coronary artery disease CHIEF COMPLAINT: chest discomfort HISTORY OF PRESENTING ILLNESS: Ms. Isabelle Lutz is a 73 year old female with PMH of DM, glaucoma, HTN, hypothyroidism, CKD-stage3, HLD,obesity, recently positive stress test who presented to [facility] for LHC. She has been experiencingexertional dyspnea [...] LHC which showed severe MV CAD with ANESTHESIA ATTENDING of RCA, heavily calcified disease in the [...] test: 11/15/2023 Hospital #: 0 Location: [facility] Interpreted by: Vandana Isaacs MD Credit Relationship Manager: Olimpia Brandon RDCS RN: Shelby Jacobo RN Reason for Test: Dyspnea Study quality: Technically good Referring Physician: GAURAV ROBLERO MD Contrast Agent: 3.0 ml Optison Administered BASELINE STUDY: Wall Motion Scoring (1=Normal 2=Hypo 3=Akinetic 4=Dyskin./Aneurysm 0=Not visualized) Parasternal Long [place]:MAS=1 BAS=1 MIL=2 ROBERT=2 Parasternal Short [place]:MAS=1 MIS=1 CO=1 MIL=2 MAL=1 MA=1 Apical 4 Chambers:=1 MIS=1 BIS=3 BAL=1 MAL=1 AL=1 AC=3 Apical 2 Chambers:AI=1 CO=1 BI=3 BA=1 MA=1 AA=2 AC=3 Ejection Fraction: [...] 2=Hypo 3=Akinetic 4=Dyskin./Aneurysm 0=Not visualized) Parasternal Long [place]:MAS=1 BAS=1 MIL=3 ROBERT=3 Parasternal Short [place]:MAS=1 MIS=1 CO=1 MIL=3 MAL=1 MA=1 Apical 4 Chambers:=1 MIS=1 BIS=1 BAL=1 MAL=1 AL=1 AC=2 Apical 2 Chambers:AI=1 CO=1 BI=3 BA=1 MA=1 AA=1 AC=2 Intravenous dobutamine [...] MD By signing this report, the attending truant officer certifies that he or she has personally [...] system. Occluded in the proximal segment with oeiq-ob-onvqd septal collaterals from the LAD COMPLICATIONS: None. [...] feel free to contact our office at [phone] with any questions or concerns regarding her care. Sincerely, Columba Leslie, MSN, AUTO WHEEL ALIGNMENT SPECIALIST-[employer] Division of [...] Visit Diagnoses Diagnosis Coronary artery disease involving la jolla heart, unspecified vessel or lesion type, unspecified whether angina present- Primary documented in this encounter Care Teams Starch Mangle Tender Relationship Specialty Start Date End Date Elpidio Serrato MD PCP - General Internal Medicine 06/09/18 documented as of this encounter
--- OUTSIDE RECORDS SUMMARY | 2024-05-20 07:55 | XMS_ITS | Encounter Summary ---
Author Organization [facility] Address [address] [place] [address] Phone Care Team Providers Care Set Up Worker Name Role Phone Elpidio Serrato MD Primary Care Provider [phone] Encounter Details Date Type Department Care Team (Late st Contact Info) Description 11/18/2023 Telephone [facility] Cardiology [address] [facility] 8th [place] [address] [place] [address] Destiny Charles Social History Tobacco [...] on file Legal Sex Female 3:59 AM FRINGE MAKER Gender Identity Female 05/13/2021 4:21 PM FRINGE MAKER Sexual Orientation Not on file documented [...] were not included. You routed conversation to [facility] Clinical Pool2 hours ago (9:21 AM) Kvng Gibson MD You2 hours ago (9:14 AM) CM If those do not work patient I can also do next the 18 Note Nori Ramirez RN You2 hours ago (9:11 AM) MAKAYLA Calderon-see Dr. Gibson's available dates. When you have a date/schedule pt, please let his secretary to the vice president Yisel Keys know so she can add [...] 11/18/2023 10:35 AM CDT Msg sent to [facility] for next avail L/RHC dates. * Telephone Encounter - Yumiko Alejo RN - 11/18/2023 8:50 AM CDT Called and s/w patient - OK to sched pt for C? * Telephone Encounter - Destiny Charles - 11/18/2023 8:02 AM CDT ADDIE PT STATES WAS ADMITTED TO [facility] 11/14 FOLLOWING ABNORMAL STRESS ECHO. STATES PER DR CONLEY NEEDS [facility] KIM WITH DR REAL documented in this encounter Plan of Treatment Not on file documented as of this encounter Visit Diagnoses Not on filedocumented in this encounter Care Teams Set Up Worker Relationship Specialty Start Date End Date Elpidio Serrato MD PCP - General Internal Medicine 06/09/18 documented as of this encounter
--- OUTSIDE RECORDS SUMMARY | 2024-05-20 07:55 | XMS_ITS | Encounter Summary ---
Author Organization [facility] Healthcare Address [address] [place] [address] Care Team Providers Care Logging Truck Driver Name Role Phone Elpidio Serrato MD Primary Care Provider [phone] Reason for Visit * Auth/Cert (Routine) Specialty Diagnoses / Procedures Referred By Contac t Referred To Contact Diagnoses Abnormal stress echocardiogram Abnormal stress echocardiogram [R94.39] Procedures Right Left Heart Catheterization with Coronary Angiography with or without Left Ventriculography [id number] Referral ID Status Reason Start Date Expiration Date Visits Re quested Visits Authorized [id number] 1 1 Encounter Details Date Type Department Care Team (Late st Contact Info) Description 11/25/2023 8:00 AM CDT - 11/25/2023 9:35 AM CDT Surgery [facility] [address] [place] [address] Kvng Gibson MD [address] [facility] [address] [place] [address] Right Left Heart Catheterization with Coronary Angiography with or without Left Ventriculography [id number] Surgery Details Date/Time Status Location OR Service Patient Class Case Class Case Type Trauma Case? 11/25/2023 8:00 AM Posted [facility] CARDIAC FIRE PREVENTION ENGINEER CCL 04 Cardiovascular Outpatient Elective Panel 1 Procedure LRB Anes Op Region Wound Class Comments Right Left Heart Catheterization with Coronary Angiography with or without Left Ventriculography 86289 N/A Conscious Sedation Surgeon Surgeon Role Service [...] on file Legal Sex Female 3:59 AM PUNCH MACHINE OPERATOR Gender Identity Female 05/13/2021 4:21 PM PUNCH MACHINE OPERATOR Sexual Orientation Not on file [...] Discharge Instructions * Discharge Instructions* Adrianna Vargas, CARBON DIOXIDE OPERATOR - 11/25/2023 10:12 AM CDT Discharge Instructions [...] medication please notify your primary provider and/or tie presser immediately. If you notice bleeding at the [...] M-F call our Outpatient Nurse Coordinators at [phone]. If you need to speak to someone after 5pm please call [facility] at [phone] and ask the electric truck crane operator topage the Cardiac Energy And Sustainability Manager Fellow electrical construction project manager. documented in this encounter Medications at Time [...] unspecified HF chronicity, unspecified heart failure type ([facility]) Place 1 tablet (0.4 mg total) under [...] recently positive stress test who presented to [facility] today for LHC. Over the past three [...] LHC which showed severe MV CAD with DONKEY DOCTOR of RCA, heavily calcified disease in the [...] 650 mg, oral, Q4H PRN, Adrianna Vargas, CARBON DIOXIDE OPERATOR Carrier Fluids for Secondary Infusion - 0.9% Sodium Chloride, 30 mL, intravenous, PRN, Adrianna Vargas, CARBON DIOXIDE OPERATOR sodium chloride 0.9% flush 0.5-20 mL, 0.5-20 mL, intra-catheter, Q8H LAMONTE, Adrianna Vargas, JAMES sodium chloride 0.9% flush 0.5-20 mL, 0.5-20 mL, intra-catheter, PRN, Adrianna Vargas, CARBON DIOXIDE OPERATOR [COMPLETED] sodium chloride 0.9% bolus 267 mL, 3 mL/kg, intravenous, Once, 267 mL at 11/25/23 0808 FOLLOWED BY sodium chloride 0.9% infusion, 1 mL/kg/hr, intravenous, Continuous, Adrianna Vargas, CARBON DIOXIDE OPERATOR, Last Rate: 89.1 mL/hr at 11/25/23808, 1 [...] 11/25/2023 , Coags: No results found for: WA , PT , PTT , APTT , [...] of test: 11/15/2023 Hospital #: 0 Location: [facility] Interpreted by: Vandana Isaacs MD Supervisor Rolling Room: Olimpia Brandon RDCS RN: Shelby Jacobo RN Reason for Test: Dyspnea Study quality: Technically good Referring Physician: GAURAV ROBLERO MD Contrast Agent: 3.0 ml Optison Administered BASELINE STUDY: Wall Motion Scoring (1=Normal 2=Hypo 3=Akinetic 4=Dyskin./Aneurysm 0=Not visualized) Parasternal Long Waban:MAS=1 BAS=1 MIL=2 ROBERT=2 Parasternal Short [place]aban:MAS=1 MIS=1 AZ=1 MIL=2 MAL=1 MA=1 Apical 4 [...] No MS/ mild MR; No TR; No WA. Diastolic Function: Grade I (impaired relaxation) with nl est filling pressures.Unable to estimate PASP d/t inadequate TR jet. Baseline HR: 77 Baseline BP: 115/57 Conduction Defects: RBBB + LAFB Resting [facility] Medications: Lasix, Aspirin, Lipitor, evothyroxine, Metformin, Insulin Meds held: none POST DOBUTAMINE STUDY: Wall Motion Scoring (1=Normal 2=Hypo 3=Akinetic 4=Dyskin./Aneurysm 0=Not visualized) Parasternal Long Waban:MAS=1 BAS=1 MIL=3 ROBERT=3 Parasternal Short Waban:MAS=1 MIS=1 AZ=1 MIL=3 MAL=1 MA=1 Apical 4 [...] MD By signing this report, the attending tie presser certifies that he or she has personally [...] system. Occluded in the proximal segment with [id number] septal collaterals from the LAD COMPLICATIONS: None. [...] recently positive stress test who presented to [facility] today for LHC. LHC today showed severe MV CAD with DONKEY DOCTOR of RCA, heavily calcified disease in the [...] , and Coags: No results found for: WA , PT , PTT , APTT , [...] : 1950 Date of Procedure: 11/25/2023 ORDERING POULTICE MACHINE OPERATOR: Surgeon(s): Kvng Gibson MD Procedure(s): Right Left Heart Catheterization with Coronary Angiography with or without Left Ventriculography 44048 Requested Diagnostic: [] Coronary Angiograms Only [] [...] Yes [x] No [] Contraindicated Ca Channel Tirston (Any): [] Yes [x] No [] Contraindicated Long Acting Nirates (Any): [] Yes [x] No [] Contraindicated Non-Statin (Any): [] Yes [x] No [] Contraindicated Ranolazin: [] Yes [x] No [] Contraindicated Statin (Any): [x] Yes [] No [] Contraindicated Indications for Energy And Sustainability Manager visit (Select all that apply): [] ACS [...] Yes, Newly Diagnosed: [x] Yes [] No [facility] Class: [] Class I [] Class [...] 73yoF with abnormal stress test here for [facility] Clinical Frailty Scale: [] 1: [...] and Assessment Completed by: Name: Adrianna Vargas CARBON DIOXIDE OPERATOR-C Date: 11/25/23 Time: 729 Cosigned by Kvng [...] were not included. ?? Cardiovascular Procedure Center [facility] [address], [address] [place] [id number] CORONARY ANGIOGRAM REPORT Patient: Isabelle Lutz : ?? 1950 MR number: [id number] Date of Service: 11/25/2023 Denture Finisher: ?? Kvng Gibson MD Referring physician: ?? [...] obtained. The patient was brought to the r and d lab technician and placed on the table. The [...] left ventriculogram was done. I provided direct [id number] moderate conscious sedation which administered by independent [...] system. ??Occluded in the proximal segment with cuey-rb-ispps septal collaterals from the LAD COMPLICATIONS: None. DIAGNOSTIC us Gaurav Roblero NP CV CARDIAC CATH PROCEDURES Final Result * (ABNORMAL) CBC without differential (11/25/2023 8:50 AM CDT) [facility] Signature WBC 7.0 3.8 - 9.9 K/cumm [...] NP LAB BLOOD ORDERABLES Final Re sult [facility] [place] [address] * POCT glucose (11/25/2023 8:06 AM CDT) [facility] Glucose, POC 111 70 - 199 mg/dL Blood 11/25/2023 8:06 AM CDT 11/25/2023 8:06 AM CDT us Kvng Gibson MD LAB POCT ORDERABLES - DEVICE Final Result [facility] [place] [address] documented in this encounter Visit Diagnoses Diagnosis [...] 11/25/2023 documented in this encounter Care Teams Logging Truck Driver Relationship Specialty Start Date End Date Elpidio Serrato MD PCP - General Internal Medicine 06/09/18 documented as of this encounter
--- OUTSIDE RECORDS SUMMARY | 2024-05-20 07:55 | XMS_ITS | Encounter Summary ---
Author Organization [facility] Address [address] [place] [address] Phone Care Team Providers Care Enterprise Software Engineer Name Role Phone Elpidio Serrato MD Primary Care Provider [phone] Reason for Referral * Consultation (Routine) - Pending Review Specialty Diagnoses / Procedures Referred By Constantino alvarado Referred To Contact Sleep Medicine Diagnoses Dyspnea on exertion Congestive heart failure, unspecified HF chronicity, unspecified heart failure type (HCC) ROSE (dyspnea on exertion) Gaurav Collier NP Phone: tel: fax: [facility] - Sleep Medicine [address] [place] [address] [address] [place] [address] Phone: tel: fax: Referral ID Status Reason Start Date Expiration Date Visits Requested Visits Authorized [id number] Pending Review Specialty Services Required 11/08/2023 12/07/2024 1 1 Question Answer Please select the performing region: [facility] [152] Please select the performing department: [facility] NEUROLOGY [[id number]] # of visits: 1 * Cardiology (Routine) - Closed Specialty Diagnoses / Procedures Referred By Constantino t Referred To Contact Diagnoses Dyspnea on exertion Congestive heart failure, unspecified HF chronicity, unspecified heart failure type (HCC) ROSE (dyspnea on exertion) Procedures Stress Echo Pharmacologic W Doppler/CF Gaurav Collier NP Phone: tel: fax: [facility] [address] [place] [address] Referral ID Status Reason Start Date Expiration Date Visits Re quested Visits Authorized [id number] Closed 11/08/2023 12/07/2024 1 1 Reason for Visit * Consultation (Routine) - Closed Specialty Diagnoses / Procedures Referred By Contac t Referred To Contact Cardiology Diagnoses Dyspnea on exertion Merna Bell MD [address] [facility] [address] [place] [address] Phone: tel: fax: [facility] (All Locations) Referral ID Status Reason Start Date Expiration Date V isits Requested Visits Authorized [id number] Closed Specialty Services Required 10/30/2023 11/28/2024 1 1 Encounter Details Date Type Department Care Team (Late st Contact Info) Description 11/08/2023 12:30 PM CDT Office Visit [facility] Cardiology [address] [facility] 8th [place] [address] [place] [address] Gaurav Collier NP [address] [facility] [address] [place] [address] Dyspnea on exertion (Primary Dx); [...] file Legal Sex Female 3:59 AM RESOURCE PROTECTION SPECIALIST Gender Identity Female 05/13/2021 4:21 PM RESOURCE PROTECTION SPECIALIST Sexual Orientation Not on file documented [...] on lasix Please call for any questions [phone] documented in this encounter Progress Notes * [...] for dyspnea. She was referred by her bicycle designer. She complained of dyspnea and blood work revealed an elevated proBNP, elevated creatinine and elevated potassium. Her Olmesartan was stopped on October 28. She was started on 20 mg Lasix on 10/29. She has lost 4 lb since then and feels better. She has occasional chest tightness. She endorses [place] heart Association class 3 symptoms. REVIEW OF [...] 3 months to establish with a general wellness coordinator Gaurav Collier NP documented in this encounter [...] of test: 11/15/2023 Hospital #: 0 ?Location: [facility] Interpreted by: Vandana Isaacs MD Programming Intern: Olimpia Brandon RDCS RN: Shelby Jacobo RN Reason for Test: Dyspnea Study quality: Technically good Referring Physician: GAURAV COLLIER MD Contrast Agent: 3.0 ml Optison Administered BASELINE STUDY: Wall Motion Scoring (1=Normal 2=Hypo 3=Akinetic 4=Dyskin./Aneurysm 0=Not visualized) Parasternal Long Alexander:MAS=1 BAS=1 MIL=2 ROBERT=2 Parasternal Short Alexander:MAS=1 MIS=1 WV=1 MIL=2 MAL=1 MA=1 Apical 4 Chambers:=1 MIS=1 BIS=3 BAL=1 MAL=1 AL=1 AC=3 Apical 2 Chambers:AI=1 WV=1 BI=3 BA=1 MA=1 AA=2 AC=3 Ejection Fraction: [...] No MS/ mild MR; No TR; No IL. Diastolic Function: Grade I (impaired relaxation) with nl est filling pressures.Unable to estimate PASP d/t inadequate TR jet. Baseline HR: 77 Baseline BP: 115/57 Conduction Defects: RBBB + LAFB Resting ECG Comments: Oriana Jensne Medications: Lasix, Aspirin, Lipitor, evothyroxine, Metformin, Insulin Meds held: none POST DOBUTAMINE STUDY: Wall Motion Scoring (1=Normal 2=Hypo 3=Akinetic 4=Dyskin./Aneurysm 0=Not visualized) Parasternal Long Alexander:MAS=1 BAS=1 MIL=3 ROBERT=3 Parasternal Short Alexander:MAS=1 MIS=1 WV=1 MIL=3 MAL=1 MA=1 Apical 4 Chambers:=1 MIS=1 BIS=1 BAL=1 MAL=1 AL=1 AC=2 Apical 2 Chambers:AI=1 WV=1 BI=3 BA=1 MA=1 AA=1 AC=2 Intravenous dobutamine [...] MD By signing this report, the attending wellness coordinator certifies that he or she has personally supervised and interpreted the echocardiogram and has reviewed and or edited and agrees with the written comments contained within the report. Procedure Note Vandana Isaacs MD - 11/15/2023 Patient name: Isabelle Lutz Date of test: 11/15/2023 Hospital #: 0 Location: [facility] Interpreted by: Vandana Isaacs MD Programming Intern: Olimpia Brandon RDCS RN: Shelby Jacobo RN Reason for Test: Dyspnea Study quality: Technically good Referring Physician: GAURAV COLLIER MD Contrast Agent: 3.0 ml Optison Administered BASELINE STUDY: Wall Motion Scoring (1=Normal 2=Hypo 3=Akinetic 4=Dyskin./Aneurysm 0=Not visualized) Parasternal Long Alexander:MAS=1 BAS=1 MIL=2 ROBERT=2 Parasternal Short Alexander:MAS=1 MIS=1 WV=1 MIL=2 MAL=1 MA=1 Apical 4 Chambers:=1 MIS=1 BIS=3 BAL=1 MAL=1 AL=1 AC=3 Apical 2 Chambers:AI=1 WV=1 BI=3 BA=1 MA=1 AA=2 AC=3 Ejection Fraction: [...] No MS/ mild MR; No TR; No IL. Diastolic Function: Grade I (impaired relaxation) with nl est filling pressures.Unable to estimate PASP d/t inadequate TR jet. Baseline HR: 77 Baseline BP: 115/57 Conduction Defects: RBBB + LAFB Resting ECG Comments: Oriana Jensen Medications: Lasix, Aspirin, Lipitor, evothyroxine, Metformin, Insulin Meds held: none POST DOBUTAMINE STUDY: Wall Motion Scoring (1=Normal 2=Hypo 3=Akinetic 4=Dyskin./Aneurysm 0=Not visualized) Parasternal Long Alexander:MAS=1 BAS=1 MIL=3 ROBERT=3 Parasternal Short Alexander:MAS=1 MIS=1 WV=1 MIL=3 MAL=1 MA=1 Apical 4 Chambers:=1 MIS=1 BIS=1 BAL=1 MAL=1 AL=1 AC=2 Apical 2 Chambers:AI=1 WV=1 BI=3 BA=1 MA=1 AA=1 AC=2 Intravenous dobutamine [...] MD By signing this report, the attending wellness coordinator certifies that he or she has personally supervised and interpreted the echocardiogram and has reviewed and or edited and agrees with the written comments contained within the report. Gaurav Collier ASSOCIATE APPLICATION DEVELOPER CV ECHO PROCEDURES Edited * (ABNORMAL) Basic metabolic panel (11/08/2023 12:33 PM CDT) Pathologist [facility] Sodium 145 135 - 145 mmol/L Potassium, pl 4.0 3.3 - 4.9 mmol/L [facility] Chloride 107 97 - 110 mmol/L [facility] CO2 24 22 - 32 mmol/L [facility] Anion gap 14 2 - 15 mmol/L [facility] BUN 36(H) 6 - 25 mg/dL [facility] Creatinine 1.61(H) 0.60 - 1.10 mg/dL [facility] Glucose 133 70 - 199 mg/dL [facility] Comment: [...] 2022. Calcium 9.5 8.5 - 10.3 mg/dL [facility] Blood 11/08/2023 12:3 3 PM CDT 11/08/2023 12:39 PM CDT Ben Ivon Chiu ASSOCIATE APPLICATION DEVELOPER LAB BLOOD ORDERABLES Fin al Result [facility] [place] [address] * ECG 12 lead (11/08/2023 11:39 AM CDT) us Gaurav Rater ASSOCIATE APPLICATION DEVELOPER ECG ORDERABLES Final Result documented in this [...] 11/08/2023 documented in this encounter Care Teams Enterprise Software Engineer Relationship Specialty Start Date End Date Elpidio Serrato MD PCP - General Internal Medicine 06/09/18 documented as of this encounter
--- OUTSIDE RECORDS SUMMARY | 2024-05-20 07:55 | XMS_ITS | Encounter Summary ---
Author Organization [facility] Healthcare Address [address] [place] [address] Care Team Providers Care Reed Man Name Role Phone Elpidio Serrato MD Primary Care Provider [phone] Encounter Details Date Type Department Care Team (Late st Contact Info) Description 12/12/2023 9:00 AM CDT Lab 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 Gender Identity Female 05/13/2021 4:21 PM ELEVATOR SERVICE MECHANIC Sexual Orientation Not on file documented as of this encounter Plan of Treatment Not on file documented as of this encounter Procedures Procedure Name Priority Date/Time Associated Diagnosis Comments EGFR Routine 12/12/2023 8:51 AM CDT Coronary artery disease involving kiana heart, unspecified vessel or lesion type, unspecified whether angina present Encounter for preprocedural cardiovascular examination BASIC METABOLIC PANEL Routine 12/12/2023 8:51 AM CDT Coronary artery disease involving kiana heart, unspecified vessel or lesion type, unspecified [...] AM CDT 12/12/2023 9:10 AM CDT us tSan Trevñio MD LAB BLOOD ORDERABLES Final Re sult [facility] Department [place] [address] * (ABNORMAL) Basic metabolic panel (12/12/2023 8:51 AM CDT) Sodium 143 135 - 145 mmol/L Potassium, pl 4.0 3.3 - 4.9 mmol/L [facility] Chloride 104 97 - 110 mmol/L [facility] CO2 29 22 - 32 mmol/L [facility] Anion gap 10 2 - 15 mmol/L [facility] BUN 23 6 - 25 mg/dL [facility] Creatinine 1.19(H) 0.60 - 1.10 mg/dL [facility] Glucose 112 70 - 199 mg/dL [facility] Comment: Interpretive Data Fasting glucose >/= 126 [...] 2022. Calcium 9.3 8.5 - 10.3 mg/dL [facility] Blood 12/12/2023 8:51 AM CDT 12/12/2023 9:04 AM CDT Stan Treviño MD LAB BLOOD ORDERABLES Final Re sult [facility] Department [place] [address] documented in this encounter Visit Diagnoses Diagnosis Coronary artery disease involving kiana heart, unspecified vessel or lesion type, unspecified whether angina present Encounter for preprocedural cardiovascular examination documented in this encounter Care Teams Reed Man Relationship Specialty Start Date End Date Elpidio Serrato MD PCP - General Internal Medicine 06/09/18 documented as of this encounter
--- OUTSIDE RECORDS SUMMARY | 2024-05-20 07:55 | XMS_ITS | Encounter Summary ---
Author Organization [facility] Address [address] [facility] [address] [place] [address] Phone Care Team Providers Care Development System Efficiency Manager Name Role Phone Elpidio Serrato MD Primary Care Provider [phone] Encounter Details Date Type Department Care Team (Late st Contact Info) Description 12/04/2023 Telephone [facility] Surgery [address] [facility] 8th [place] [address] [place] [phone] Stan Treviño MD [address] [facility] [id number] [place] [address] Social History Tobacco Use Types [...] on file Legal Sex Female 3:59 AM TEMPLATE CLERK Gender Identity Female 05/13/2021 4:21 PM TEMPLATE CLERK Sexual Orientation Not on file documented [...] filedocumented in this encounter Care Teams Development System Efficiency Manager Relationship Specialty Start Date End Date Elpidio Serrato MD PCP - General Internal Medicine 06/09/18 documented as of this encounter
--- OUTSIDE RECORDS SUMMARY | 2024-05-20 07:55 | XMS_ITS | Encounter Summary ---
Author Organization [facility] Address [address] [place] [address] Phone Care Team Providers Care Curb Worker Name Role Phone Elpidio Serrato MD Primary Care Provider [phone] Encounter Details Date Type Department Care Team (Late st Contact Info) Description 10/30/2023 Orders Only [facility] Endocrinology Metabolism and Lipid [address] [facility] Advanced Medicine 13th [place] [address] [place] [address] Lia Mariano, CANVASS MANAGER [address] [place] [address] Social History Tobacco Use Types Packs/Day Years [...] on file Legal Sex Female 3:59 AM ICT SYSTEMS TEST ENGINEER Gender Identity Female 05/13/2021 4:21 PM ICT SYSTEMS TEST ENGINEER Sexual Orientation Not on file [...] on filedocumented in this encounter Care Teams Curb Worker Relationship Specialty Start Date End Date Elpidio Serrato MD PCP - General Internal Medicine 06/09/18 documented as of this encounter
--- OUTSIDE RECORDS SUMMARY | 2024-05-20 07:55 | XMS_ITS | Encounter Summary ---
Author Organization [facility] Address [address] [facility] [place] [facility] [address] [place] [address] Phone Care Team Providers Care Diplomatic Officer Name Role Phone Elpidio Serrato MD Primary Care Provider [phone] Reason for Visit * Diagnostic Imaging (Routine) - Closed Specialty Diagnoses / Procedures Referred By Constantino t Referred To Contact Diagnoses Coronary artery disease involving ambler heart, unspecified vessel or lesion type, unspecified whether angina present Encounter for preprocedural cardiovascular examination Procedures US Vein Mapping Duplex Lower Extremity Bilateral Stan Barrett MD [address] [facility] [address] [place] [address] Phone: tel: fax: [address] [phone] Referral ID Status Reason Start Date Expiration Date Visits Re quested Visits Authorized [id number] Closed 12/04/2023 01/02/2025 1 1 Encounter Details Date Type Department Care Team (Latest Contact Info) Description 12/12/2023 9:30 AM CDT Ancillary Procedure [facility] at [facility] [address] [place] [address] 8th [place] [address] [place] [address] Coronary artery disease involving ambler heart, unspecified vessel or lesion type, unspecified [...] file Legal Sex Female 3:59 AM SALES ASSOCIATE KEY HOLDER Gender Identity Female 05/13/2021 4:21 PM SALES ASSOCIATE KEY HOLDER Sexual Orientation Not on file documented as of this encounter Plan of Treatment Not on file documented as of this encounter Procedures Procedure Name Priority Date/Time Associated Diagnosis Comments US VEIN MAPPING DUPLEX LOWER EXTREMITY BILATERAL Schedule Routine, Read Routine (OP Routine) 12/12/2023 9:53 AM CDT Coronary artery disease involving ambler heart, unspecified vessel or lesion type, unspecified whether angina present Encounter for preprocedural cardiovascular examination US CAROTIDS DUPLEX BILATERAL Schedule Routine, Read Routine (OP Routine) 12/12/2023 9:53 AM CDT Coronary artery disease involving ambler heart, unspecified vessel or lesion type, unspecified whether angina present Encounter for preprocedural cardiovascular examination Encounter for other preprocedural examination documented in this encounter Results * US Carotids Duplex Bilateral (12/12/2023 9:53 AM CDT) Anatomical Region Laterality Modality Vascular Bilateral Ultrasound 12/12/2023 8:56 AM CDT Narrative 12/12/2023 5:09 PM CDT [facility] - Department of Vascular Surgery, Vascular Laboratory [address] [place] [address] Carotid Duplex Ultrasound Report Patient Name: LEVON FIGUEREDO : 1950 (73y 8m) Study Date: 12/12/2023 8:56:33 AM Gender: F Tech: Zakia LONGLyubov Location: [facility] Ref Provider: STAN BARRETT ?Quality: Adequate Order Provider: STAN BARRETT PROCEDURES: Carotid Report: Carotid duplex examination of the extracranial arteries was performed using 2D, color and spectral Doppler. INDICATIONS: I25.10 Atherosclerotic heart disease of ambler coronary artery without angina pectoris, Z01.810 Encounter [...] PSV ?40 ? cm/sec - FINDINGS: Performing Spring Coiler: Coby Levy RVT. Rt Common Carotid Artery: [...] Procedure Note Wilfrido Mcginnis MD - 12/12/2023 [facility] - Department of Vascular Surgery,Vascular Laboratory [address] [place] [address] Carotid Duplex Ultrasound Report Patient Name: LEVON FIGUEREDO : 1950 (73y 8m) Study Date: 12/12/2023 8:56:33 AM Gender: F Tech: Zakia LEVY Location: [facility] Ref Provider: STAN BARRETT Quality: Adequate Order Provider: STAN BARRETT PROCEDURES: Carotid Report: Carotid duplex examination of the extracranial arterieswas performed using 2D, color and spectral Doppler. INDICATIONS: I25.10 Atherosclerotic heart disease of ambler coronary artery withoutangina pectoris, Z01.810 Encounter for [...] LT VERT PSV 40cm/sec - FINDINGS: Performing Spring Coiler: Coby Levy RVT. Rt Common Carotid Artery: [...] above. Electronically Signed By: Wilfrido Mcginnis MD [facility] 2023-12-12 17:09:16 CDT Stan Barrett MD [facility] PROCEDURES Final Resul t * US Vein Mapping Duplex Lower Extremity Bilateral (12/12/2023 9:53 AM CDT) Anatomical Region Laterality Modality Vascular Bilateral Ultrasound 12/12/2023 9:10 AM CDT Narrative 12/12/2023 5:07 PM CDT [facility] - Department of Vascular Surgery, Vascular Laboratory [address] [place] [address] Lower Extremity Vein Mapping Report Patient Name: LEVON FIGUEREDO : 1950 (73y 8m) Study Date: 12/12/2023 9:10:11 AM Gender: F Spring Coiler: Zakia LEVY Location: [facility] Provider: STAN BARRETT ?Quality: Adequate Order Provider: STAN BARRETT PROCEDURES: Mapping Report: Bilateral Lower Extremity Saphenous Vein Mapping. INDICATIONS: I25.10 Atherosclerotic heart disease of ambler coronary artery without angina pectoris, and Z01.810 [...] Saphenous Distal ?0.24 ?cm - FINDINGS: Performing Spring Coiler: Coby Levy RVT. Bilateral: The common femoral, [...] above. Electronically Signed By: Wilfrido Mcginnis MD [facility] 2023-12-12 17:06:48 CDT Procedure Note Wilfrido Mcginnis MD - 12/12/2023 [facility] - Department of Vascular Surgery,Vascular Laboratory [address] [place] [place] [address] Lower Extremity Vein Mapping Report Patient Name: LEVON FIGUEREDO : 1950 (73y 8m) Study Date: 12/12/2023 9:10:11 AM Gender: F Spring Coiler: Zakia LEVY Location: [facility] Ref Provider: STAN BARRETT Quality: Adequate Order Provider: STAN BARRETT PROCEDURES: Mapping Report: Bilateral Lower Extremity Saphenous Vein Mapping. INDICATIONS: I25.10 Atherosclerotic heart disease of ambler coronary artery withoutangina pectoris, and Z01.810 Encounter [...] Saphenous Distal 0.24 cm - FINDINGS: Performing Spring Coiler: Coby Levy RVT. Bilateral: The common femoral, [...] above. Electronically Signed By: Wilfrido Mcginnis MD [facility] 2023-12-12 17:06:48 CDT Stan Barrett MD IM US PROCEDURES Final Resul t documented in this encounter Visit Diagnoses Diagnosis Coronary artery disease involving ambler heart, unspecified vessel or lesion type, unspecified whether angina present Encounter for preprocedural cardiovascular examination Encounter for other preprocedural examination documented in this encounter Care Teams Diplomatic Officer Relationship Specialty Start Date End Date Elpidio Serrato MD PCP - General Internal Medicine 06/09/18 documented as of this encounter
--- OUTSIDE RECORDS SUMMARY | 2024-05-20 07:55 | XMS_ITS | Encounter Summary ---
Author Organization [facility] Healthcare Address [address] [place] [address] Care Team Providers Care Field Support Specialist Name Role Phone Elpidio Serrato MD Primary Care Provider [phone] Reason for Referral * MRI/CAT/PET Scan (Routine) - Closed Specialty Diagnoses / Procedures Referred By Latashaac t Referred To Contact Radiology Diagnoses Coronary artery disease involving sauk-sui[place] heart, unspecified vessel or lesion type, unspecified whether angina present Encounter for preprocedural cardiovascular examination Procedures CT Chest Abdomen Pelvis W Contrast Stan Treviño MD [address] [facility] [address] [place] [address] Phone: tel: fax: [address] [phone] Referral ID Status Reason Start Date Expiration Date Visits Re quested Visits Authorized [id number] Closed 12/04/2023 01/02/2025 1 1 Reason for Visit * MRI/CAT/PET Scan (Routine) - Closed Specialty Diagnoses / Procedures Referred By Contac t Referred To Contact Radiology Diagnoses Coronary artery disease involving sa[place]sui[place] heart, unspecified vessel or lesion type, unspecified whether angina present Encounter for preprocedural cardiovascular examination Procedures CT Chest Abdomen Pelvis W Contrast Stan Treviño MD [address] [facility] [address] [place] [address] Phone: tel: fax: [facility] [place] [address] Referral ID Status Reason Start Date Expiration Date Visits Re quested Visits Authorized [id number] Closed 12/04/2023 01/02/2025 1 1 Encounter Details Date Type Department Care Team (Latest Contact Info) Description 12/12/2023 6:47 AM CDT - 12/12/2023 11:59 PM CDT Hospital Encounter [facility] [address] [place] [address] Stan Treviño MD [address] [place] [facility] [address] [place] [address] Coronary artery disease involving sa[place]su[place] heart, unspecified vessel or lesion type, unspecified [...] on file Legal Sex Female 3:59 AM REPRODUCTION TECHNICIAN Gender Identity Female 05/13/2021 4:21 PM REPRODUCTION TECHNICIAN Sexual Orientation Not on file documented [...] 7:55 AM CDT Coronary artery disease involving sa[place] heart, unspecified vessel or lesion type, unspecified [...] Visit Diagnoses Diagnosis Coronary artery disease involving sauk-suiattle heart, unspecified vessel or lesion type, unspecified [...] 05/2023 documented in this encounter Care Teams Field Support Specialist Relationship Specialty Start Date End Date Elpidio Serrato MD PCP - General Internal Medicine 06/09/18 documented as of this encounter
--- OUTSIDE RECORDS SUMMARY | 2024-05-20 07:55 | XMS_ITS | Encounter Summary ---
Author Organization [facility] Address [address] [place] [address] Phone Care Team Providers Care Respiratory Care Instructor Name Role Phone Elpidio Serrato MD Primary Care Provider [phone] Reason for Referral * Consultation (Routine) - Pending Review Specialty Diagnoses / Procedures Referred By Contact Referred To Contact Physical Medicine and Rehabilitation Diagnoses Pain in both knees, unspecified chronicity Lia Mariano NP [address] [place] [address] Phone: tel:[phone] fax:[phone] [facility] (All Locations) Referral ID Status Reason Start Date Expiration Date Visits Requested Visits Authorized [id number] Pending Review Specialty Services Required 11/19/2023 12/18/2024 1 1 Question Answer Please select the performing region: [facility] (All Locations) [167] # of visits: 1 Comments Prefers [place] or [place] locations Encounter Details Date Type Department Care Team (Latest Contact Info) Description 11/19/2023 11:30 AM CDT Office Visit [facility] Endocrinology Metabolism and Lipid [address] [facility] [address]th [place] [address] [place] [address] Lia Mariano NP [address] [place] [address] Benign essential hypertension (Primary Dx); Congestive heart [...] file Legal Sex Female 3:59 AM MEDICAL TERMINOLOGIST Gender Identity Female 05/13/2021 4:21 PM MEDICAL TERMINOLOGIST Sexual Orientation Not on file documented as [...] chest pain, neck/throat fullness. Current therapy Lantus/ Vdojihye54 units in morning Humalog 8 units with morning meals. 10 units in evening only if BG is > 150. metformin 500 mg AM Ozempic, 2 mg weekly - doses on Saturday. Jardiance 10 mg Daily. CGM Interpretation - Sensor: Chujian G6 Mobile - Wear time:99.8 - Indication [...] (CMS/HCC) (HCC) Coronary artery disease Diabetes mellitus ([facility]) Diabetic retinopathy ([facility]) Glaucoma Hypertension Multiparity History Of ___ Previous Pregnancies - 7 pregnancies, 2 children - C-sections. (Added by TW Conv) Nonproliferative diabetic retinopathy (HCC) 11/03/2009 Personal history of other specified conditions History of chest pain - Stress test negative on 08/01/06 (Added by TW Conv) Thyroid disease Past Surgical History: Procedure Laterality Date CATARACT EXTRACTION Right 06/14/2022 CE/IOL + goniotomy MS APPENDECTOMY unkown dates per pt MS DELIVERY ONLY Section - in 1972 and 1975 (Added by TW Conv) MS TENDON SHEATH INCISION Hand Incision Tendon Sheath [...] to orthopedics. Complete following hear cath. --LEONARD Caraballo-[facility] in [facility] Division of Endocrinology, Metabolism, & Lipid Research [address] [place] [address] Cosigned by Merna Bell MD at 11/19/2023 [...] chronicity documented in this encounter Care Teams Respiratory Care Instructor Relationship Specialty Start Date End Date Elpidio Serrato MD PCP - General Internal Medicine 06/09/18 documented as of this encounter
--- OUTSIDE RECORDS SUMMARY | 2024-05-20 07:55 | XMS_ITS | Encounter Summary ---
Author Organization [facility] Address [address] [facility] [address] [place] [address] Phone Care Team Providers Care Manager Of Network Name Role Phone Elpidio Serrato MD Primary Care Provider [phone] Reason for Referral * Procedure (Routine) - Closed Specialty Diagnoses / Procedures Referred By Constantino alvarado Referred To Contact Pulmonology Diagnoses Coronary artery disease involving northern [place] heart, unspecified vessel or lesion type, unspecified whether angina present Encounter for preprocedural cardiovascular examination Procedures Pulmonary Function Test -[facility] Adult PFT Lab- [facility]-8D; Standard; Spirometry, Spirometry w/bronchodilator, DLCO and Lung Volumes Stan Barrett MD [address] [facility] [address] [place] [address] Phone: tel: fax: Referral ID Status Reason Start Date Expiration Date Visits Re quested Visits Authorized [id number] Closed 12/04/2023 01/02/2025 1 1 * Diagnostic Imaging (Routine) - Closed Specialty Diagnoses / Procedures Referred By Constantino alvarado Referred To Contact Diagnoses Coronary artery disease involving northern [place] heart, unspecified vessel or lesion type, unspecified whether angina present Encounter for preprocedural cardiovascular examination Encounter for other preprocedural examination Procedures US Carotids Duplex Bilateral Stan Barrett MD [address] [facility] [address] [place] [address] Phone: tel: fax: [address] [phone] Referral ID Status Reason Start Date Expiration Date Visits Re quested Visits Authorized [id number] Closed 12/04/2023 01/02/2025 1 1 * Diagnostic Imaging (Routine) - Closed Specialty Diagnoses / Procedures Referred By Contac t Referred To Contact Diagnoses Coronary artery disease involving northern [place] heart, unspecified vessel or lesion type, unspecified whether angina present Encounter for preprocedural cardiovascular examination Procedures US Vein Mapping Duplex Lower Extremity Bilateral Stan Barrett MD [address] [facility] [address] [place] [address] Phone: tel: fax: [address] [phone] Referral ID Status Reason Start Date Expiration Date Visits Re quested Visits Authorized [id number] Closed 12/04/2023 01/02/2025 1 1 * MRI/CAT/PET Scan (Routine) - Closed Specialty Diagnoses / Procedures Referred By Contac t Referred To Contact Radiology Diagnoses Coronary artery disease involving northern [place] heart, unspecified vessel or lesion type, unspecified whether angina present Encounter for preprocedural cardiovascular examination Procedures CT Chest Abdomen Pelvis W Contrast Stan Barrett MD [address] [facility] [address] [place] [address] Phone: tel: fax: [address] [address] Referral ID Status Reason Start Date Expiration Date Visits Re quested Visits Authorized [id number] Closed 12/04/2023 01/02/2025 1 1 Encounter Details Date Type Department Care Team (Latest Contact Info) Description 12/04/2023 Orders Only [facility] Cardiothoracic Surgery [address] [facility] 8th [address] [place] [address] Stan Barrett MD [address] [place] [address] [facility] [address] [place] [address] Coronary artery disease involving northern [place]aho heart, unspecified vessel or lesion type, unspecified [...] on file 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 Gender Identity Female 05/13/2021 4:21 PM MUSIC PROMOTER Sexual Orientation Not on file documented as of this encounter Plan of Treatment Not on file documented as of this encounter Results * US Carotids Duplex Bilateral (12/12/2023 9:53 AM CDT) Anatomical Region Laterality Modality Vascular Bilateral Ultrasound 12/12/2023 8:56 AM CDT Narrative 12/12/2023 5:09 PM CDT [facility] - Department of Vascular Surgery, Vascular Laboratory [address] [place] [address] Carotid Duplex Ultrasound Report Patient Name: LEVON FIGUEREDO : [birth year] (73y 8m) Study Date: 12/12/2023 8:56:33 AM Gender: F Tech: Zakia GALARZA Location: [facility] Provider: STAN BARRETT ?Quality: Adequate Order Provider: STAN BARRETT PROCEDURES: Carotid Report: Carotid duplex examination of the extracranial arteries was performed using 2D, color and spectral Doppler. INDICATIONS: I25.10 Atherosclerotic heart disease of [place] coronary artery without angina pectoris, Z01.810 Encounter [...] PSV ?40 ? cm/sec - FINDINGS: Performing Personal Investment Adviser: Coby Galarza RVT. Rt Common Carotid Artery: [...] Note Wilfrido Mcginnis MD - 12/12/2023 [facility] - Department of Vascular Surgery,Vascular Laboratory [address] [place] [address] Carotid Duplex Ultrasound Report Patient Name: LEVON FIGUEREDO : 1950 (73y 8m) Study Date: 12/12/2023 8:56:33 AM Gender: F Tech: Zakia GALARZA Location: [facility] Ref Provider: STAN BARRETT Quality: Adequate Order Provider: STAN BARRETT PROCEDURES: Carotid Report: Carotid duplex examination of the extracranial arterieswas performed using 2D, color and spectral Doppler. INDICATIONS: I25.10 Atherosclerotic heart disease of [place] coronary artery withoutangina pectoris, Z01.810 Encounter for [...] LT VERT PSV 40cm/sec - FINDINGS: Performing Personal Investment Adviser: Coby Galarza RVT. Rt Common Carotid Artery: [...] 2023-12-12 17:09:16 CDT us Stan Barrett MD [facility] US PROCEDURES Final Resul t * US Vein Mapping Duplex Lower Extremity Bilateral (12/12/2023 9:53 AM CDT) Anatomical Region Laterality Modality Vascular Bilateral Ultrasound 12/12/2023 9:10 AM CDT Narrative 12/12/2023 5:07 PM CDT [facility] - Department of Vascular Surgery, Vascular Laboratory [address] [place] [address] Lower Extremity Vein Mapping Report Patient Name: LEVON FIGUEREDO : 1950 (73y 8m) Study Date: 12/12/2023 9:10:11 AM Gender: F Personal Investment Adviser: Zakia GALARZA Location: [facility] Provider: STAN BARRETT ?Quality: Adequate Order Provider: STAN BARRETT PROCEDURES: Mapping Report: Bilateral Lower Extremity Saphenous Vein Mapping. 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 Bilateral: The common femoral, [...] above. Electronically Signed By: Wilfrido Mcginnis MD [facility] 2023-12-12 17:06:48 CDT Procedure Note Wilfrido Mcginnis MD - 12/12/2023 [facility] - Department of Vascular Surgery,Vascular Laboratory [address] [place] [address] Lower Extremity Vein Mapping Report Patient Name: LEVON FIGUEREOD : 1950 (73y 8m) Study Date: 12/12/2023 9:10:11 AM Gender: F Personal Investment Adviser: Zakia GALARZA Location: [facility] Ref Provider: STAN BARRETT Quality: Adequate Order Provider: STAN BARRETT PROCEDURES: Mapping Report: Bilateral Lower Extremity Saphenous Vein Mapping. INDICATIONS: I25.10 Atherosclerotic heart disease of [place] coronary artery withoutangina pectoris, and Z01.810 Encounter [...] Saphenous Distal 0.24 cm - FINDINGS: Performing Personal Investment Adviser: Coby Galarza RVT. Bilateral: The common femoral, [...] above. Electronically Signed By: Wilfrido Mcginnis MD [facility] 2023-12-12 17:06:48 CDT us Stan Barrett MD [facility] US PROCEDURES Final Resul t * (ABNORMAL) Basic metabolic panel (12/12/2023 8:51 AM CDT) Sodium 143 135 - 145 mmol/L Potassium, pl 4.0 3.3 - 4.9 mmol/L [facility] Chloride 104 97 - 110 mmol/L [facility] CO2 29 22 - 32 mmol/L [facility] Anion gap 10 2 - 15 mmol/L [facility] BUN 23 6 - 25 mg/dL [facility] Creatinine 1.19(H) 0.60 - 1.10 mg/dL [facility] Glucose 112 70 - 199 mg/dL [facility] [...] 2022. Calcium 9.3 8.5 - 10.3 mg/dL [facility] Blood 12/12/2023 8:51 AM CDT 12/12/2023 9:04 AM CDT us Stan Barrett MD LAB BLOOD ORDERABLES Final Re sult [facility] Department [place] [address] * Pulmonary Function Test - (12/12/2023 8:27 [...] Narrative 12/14/2023 4:01 PM CDT PFT performed at:->[facility] Adult PFT Lab- [facility]-8D Procedure:->Standard Standard:->Spirometry, Spirometry w/bronchodilator, DLCO [...] and %HbO2 is age dependent. However, the [facility] Pulmonary Function Laboratory defines hypoxemia as [...] Visit Diagnoses Diagnosis Coronary artery disease involving [place] heart, unspecified vessel or lesion type, unspecified whether angina present- Primary Encounter for preprocedural cardiovascular examination Encounter for other preprocedural examination Coronary artery disease involving [place] heart, unspecified vessel or lesion type, unspecified whether angina present Encounter for preprocedural cardiovascular examination Encounter for other preprocedural examination Coronary artery disease involving [place] heart, unspecified vessel or lesion type, unspecified whether angina present Encounter for preprocedural cardiovascular examination Coronary artery disease involving [place] heart, unspecified vessel or lesion type, unspecified whether angina present Encounter for preprocedural cardiovascular examination documented in this encounter Care Teams Manager Of Network Relationship Specialty Start Date End Date Elpidio Serrato MD PCP - General Internal Medicine 06/09/18 documented as of this encounter
--- OUTSIDE RECORDS SUMMARY | 2024-05-20 07:55 | XMS_ITS | Encounter Summary ---
Author Organization [facility] Healthcare Address [address] [place] [address] Care Team Providers Care Medical Biller Name Role Phone Elpidio Serrato MD Primary Care Provider [phone] Encounter Details Date Type Department Care Team (Late st Contact Info) Description 11/08/2023 12:45 PM CDT Lab [facility] Advanced Medicine 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 Gender Identity Female 05/13/2021 4:21 PM VENDING MACHINE REPAIRER Sexual Orientation Not on file documented [...] PM CDT 11/08/2023 12:42 PM CDT us Bne Chiu NP LAB BLOOD ORDERABLES Fin al Result [facility] One [facility] [place] [address] * (ABNORMAL) Basic metabolic panel (11/08/2023 12:33 PM CDT) Sodium 145 135 - 145 mmol/L Potassium, pl 4.0 3.3 - 4.9 mmol/L [facility] Chloride 107 97 - 110 mmol/L [facility] CO2 24 22 - 32 mmol/L [facility] Anion gap 14 2 - 15 mmol/L [facility] BUN 36(H) 6 - 25 mg/dL [facility] Creatinine 1.61(H) 0.60 - 1.10 mg/dL [facility] Glucose 133 70 - 199 mg/dL [facility] [...] 2022. Calcium 9.5 8.5 - 10.3 mg/dL [facility] Blood 11/08/2023 12:3 3 PM CDT 11/08/2023 12:39 PM CDT Ben Chiu NP LAB BLOOD ORDERABLES [facility] al Result [facility] One [facility] Department [place] [address] documented in this encounter Visit Diagnoses Diagnosis Congestive heart failure, unspecified HF chronicity, unspecified heart failure type (HCC) documented in this encounter Care Teams Medical Biller Relationship Specialty Start Date End Date Elpidio Serrato MD PCP - General Internal Medicine 06/09/18 documented as of this encounter
--- OUTSIDE RECORDS SUMMARY | 2024-05-20 07:55 | XMS_ITS | Encounter Summary ---
Author Organization [facility] Address [address] [place] [address] Phone Care Team Providers Care Research Nurse Name Role Phone Elpidio Serrato MD Primary Care Provider [phone] Encounter Details Date Type Department Care Team (Late st Contact Info) Description 11/04/[address] 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 EKG and Stress in [facility]. * Telephone Encounter - Susannah Brennan [...] you treated? Have you ever seen a Online Communications Manager in an office setting? 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 [x] [] [facility] Have you ever had any cardiac testing, imaging, or procedures? (Testing - echo, EKG, stress) (Imaging - Cardiac MRI, CT or calcium scoring) (Procedure - Ablation, Cardioversion, CABG, Cath) [x] [] Testing - [facility] Have you ever had a sleep study? [] [x] Do you have a device? If yes what type? (Pacemaker, Defibrillator, Implanted Loop Recorder) [] [x] If yes, where and when was device put in? 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) Appointment Date: 11/08/2023 Provider: Rater, TONGUE BINDER Location: [facility] [x] Confirm appt date, time, [...] filedocumented in this encounter Care Teams Research Nurse Relationship Specialty Start Date End Date Elpidio Serrato MD PCP - General Internal Medicine 06/09/18 documented as of this encounter
--- OUTSIDE RECORDS SUMMARY | 2024-05-20 07:55 | XMS_ITS | Encounter Summary ---
Author Organization [facility] Address [address] [place] [address] Phone Care Team Providers Care Nougat Cutter Machine Name Role Phone Elpidio Serrato MD Primary Care Provider [phone] Reason for Visit * Reason Onset Date Comments CMN 12/20/2023 [place] Encounter Details Date Type Department Care Team (Late st Contact Info) Description 12/20/2023 Telephone [facility] Endocrinology Metabolism and Lipid [address] 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 See Media. documented in this encounter Plan of Treatment Not on file documented as of this encounter Visit Diagnoses Not on filedocumented in this encounter Care Teams Nougat Cutter Machine Relationship Specialty Start Date End Date Elpidio Serrato MD PCP - General Internal Medicine 06/09/18 documented as of this encounter
--- OUTSIDE RECORDS SUMMARY | 2024-05-20 07:55 | XMS_ITS | Encounter Summary ---
Author Organization [facility] Healthcare Address [address] [place] [address] Care Team Providers Care Drawer Waxer Name Role Phone Elpidio Serrato MD Primary Care Provider [phone] Reason for Referral * Cardiology (Routine) - Authorized Specialty Diagnoses / Procedures Referred By Constantino alvarado Referred To Contact Diagnoses Preoperative testing Procedures ECG 12 lead Aruna Land NP [address] [facility] [id number] [place] [address] Phone: tel: fax: [facility] [address] [place] [address] Referral ID Status Reason Start Date Expiration Date V isits Requested Visits Authorized [id number] Authorized 01/17/2024 02/15/2025 1 1 Reason for Visit * Auth/Cert (Routine) Specialty Diagnoses / Procedures Referred By Contqi t Referred To Contact Diagnoses Coronary artery disease, unspecified vessel or lesion type, unspecified whether angina present, unspecified whether northway or transplanted heart Coronary artery disease, unspecified vessel or lesion type, unspecified whether angina present, unspecified whether northway or transplanted heart [I25.10] Procedures NM CABG W/ARTERIAL GRAFT THREE ARTERIAL GRAFTS NM NDSC SURG W/VIDEO-ASSISTED HARVEST VEIN CABG 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 x3 OROZCO VEIN 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 Referral ID Status Reason Start Date Expiration Date Visits Re quested Visits Authorized [id number] 1 1 Encounter Details Date Type Department Care Team (Latest Contact Info) Description 01/17/2024 11:00 AM CDT Pre-Admission Testing [facility] for Preoperative Assessment and Planning [facility] ([facility]) [address] [place] [id number] Pre-operative exam (Primary Dx); Preoperative testing; Chronic [...] Location: Pleural; Size: 28 Fr; Drainage System: Bone Gap/nonsuction water seal drainage, Suction; Removal Date: 01/23/24; [...] on file Legal Sex Female 3:59 AM REPAIRER KILN CAR Gender Identity Female 05/13/2021 4:21 PM REPAIRER KILN CAR Sexual Orientation Not on file documented as [...] Planning Perioperative Nursing Note CPAP Clinic at [facility] ([facility]) Date: 01/17/24 This assessment was completed [...] for the 01/17/24 encounter (Pre-Admission Testing) with [facility] CPAP NURSE Medication Sig Dispense Refill [...] Single Piece Envista 6.0x12.5 +18.0d Hydrophobic Acrylic [id number] - [id number] - [id number] - Implanted (Right) Lens Inventory item: [employer] Lens Iol Posterior Biconvex Optic Single Piece Envista 6.0x12.5 +18.0d Hydrophobic Acrylic [id number] Model/Cat number: [id number] Serial number: [id number] Auditor Internal: [employer] Device identifier: [id number] Device identifier type: GS1 As of 06/14/2022 Status: Implanted [employer] Lens Iol Posterior Biconvex Optic Single Piece Envista 6.0x12.5 +18.0d Hydrophobic Acrylic [id number] - [id number] - [id number] - Implanted (Left) Eye Inventory item: [employer] Lens Iol Posterior Biconvex Optic Single Piece Envista 6.0x12.5 +18.0d Hydrophobic Acrylic [id number] Model/Cat number: [id number] Serial number: [id number] Auditor Internal: [employer] Lot number: [id number] Device identifier: [id number] Device identifier type: GS1 As of 08/16/2022 [...] family Information Provided on Healthcare Directives: No Communication/Gasket Winder Needs Communication Needs: Glasses Assistive Devices/DME: Eyeglasses, Cane Hearing - Right Ear: Functional Hearing - Left Ear: Functional Discharge Planning Type of Residence: Private residence Living Arrangements: Children Support Systems: Children Assistance Needed: DOS- daughter with her Patient expects to be discharged to: Private residence RN CRITICAL CARE NO ADDITIONAL COMMENTS/ FOLLOW UP * Pre-Procedure [...] Remove nail coverings, artificial nails and nail kiswahili prior to the day of surgery. This is to lower your risk of infection and to allow the day of surgery team to monitor your oxygen levels. You should leave your valuables and any jewelry at home. No metal or piercings are allowed in the operating room. You should bring your insurance card, a photo ID (example: Nailing Machine Feeder's License) and a method of payment for [...] patients should read below section: Information on [facility] & the Orthopedic Center: Please view [email or web address] (Patient & Visitor Information) for additional details regarding Advanced Directive forms, AWARE, directions, parking information, lodging, Internet access, dining and more. For MyChart information, to activate account or password recovery, please go to [email or web address] or call [phone] (toll-free: [phone]), Sat- Saturday 8am-5pm. Information for Suicide Prevention: National Suicide Prevention Lifeline (2-664-150-XVCA (1911)) orcall or text 872. Chat resources: [employer] (Listn).org. Surgery Times: For patients having surgery @ [facility] or [facility] ([facility]), if your surgeon's office has not notified you of your surgery time by NOON THE BUSINESS DAY BEFORE your surgery, please call [phone] and ask for your surgeon's office Dr. [...] Preoperative Assessment and Planning CPAP Clinic Location: [facility] The night before your surgery: * [...] of surgery * If having surgery at [facility], you may want to bring a credit card if you want to use our Mobile Pharmacy for your discharge medications. Mobile pharmacy is not available at [facility], the Orthopedic Center, or the [facility]. If you are a smoker: * You should prepare for your surgery and recovery well ahead of time. Stop smoking at least 2 weeks before surgery to help prevent infection and help your body recover faster. Ask your surgeon for tools to help you quit or call 1-977-WAEYASH ( ). Visit Smokefree.gov for more information. [...] ur 0-2 0 - 2 /HPF [facility] Epithelial cells, squamous, ur 1-5 0 - 5 /HPF [facility] Bacteria, ur 1+(A) [facility] Mucous, ur Present(A) [facility] Hyaline casts, ur 6-10 0 - 10 /LPF [facility] Culture Reflex Comment Reflex conditions for urine culture (WBC >10) not met. [facility] Urine, clean voided 01/17/2024 12:58 PM CDT 01/17/2024 1:30 PM CDT us Aruna Land MANAGER ARCHITECTURE LAB URINE ORDERABLES Final Re sult [facility] Department [place] [address] * (ABNORMAL) eGFR (01/17/2024 12:58 PM CDT) [...] 01/17/2024 1:32 PM CDT us Aruna Land MANAGER ARCHITECTURE LAB BLOOD ORDERABLES Final Re sult [facility] Department [place] [address] * Differential, auto (01/17/2024 12:58 PM CDT) Neutrophil abs 5.4 1.5 - 6.5 K/cumm Imm gran abs 0.0 0.0 - 0.1 K/cumm [facility] Lymphocyte abs 2.3 0.8 - 3.3 K/cumm [facility] Monocyte abs 0.7 0.2 - 0.8 K/cumm [facility] Eosinophil abs 0.1 0.0 - 0.5 K/cumm [facility] Basophil abs 0.0 0.0 - 0.1 K/cumm [facility] Neutrophil pct 63.2 % [facility] Comment: Interpretive Data Percent cell count reference ranges are not reported, since discordance with absolute values may lead to misinterpretation of CBC data. Current Interpretive Data was last revised on 2017. Imm gran pct 0.1 % [facility] Comment: Interpretive Data Percent cell count reference ranges are not reported, since discordance with absolute values may lead to misinterpretation of CBC data. Current Interpretive Data was last revised on 2017. Lymphocyte pct 27.1 % [facility] Comment: Interpretive Data Percent cell count reference ranges are not reported, since discordance with absolute values may lead to misinterpretation of CBC data. Current Interpretive Data was last revised on 2017. Monocyte pct 8.3 % [facility] Comment: Interpretive Data Percent cell count reference ranges are not reported, since discordance with absolute values may lead to misinterpretation of CBC data. Current Interpretive Data was last revised on 2017. Eosinophil pct 0.9 % [facility] Comment: Interpretive Data Percent cell count reference ranges are not reported, since discordance with absolute values may lead to misinterpretation of CBC data. Current Interpretive Data was last revised on 2017. Basophil pct 0.4 % [facility] Comment: Interpretive Data Percent cell count reference ranges are not reported, since discordance with absolute values may lead to misinterpretation of CBC data. Current Interpretive Data was last revised on 2017. Blood 01/17/2024 12:5 8 PM CDT 01/17/2024 1:34 PM CDT us Aruna Land MANAGER ARCHITECTURE LAB BLOOD ORDERABLES Final Re sult [facility] Department [place] [address] * (ABNORMAL) Urinalysis reflex to microscopic and culture Urine, clean voided (01/17/2024 12:58 PM CDT) Color, ur Straw Yellow Clarity, ur Clear Clear [facility] Specific gravity, ur 1.013 1.003 - 1.030 [facility] pH, urine 5.5 [facility] Comment: Interpretive Data ? Urine pH is affected by diet, medications, systemic acid-base disturbances, and renal tubular function. ??pH may affect urinary stone formation. ??For example, urine pH below 6.0 may help reduce the tendency for calcium phosphate stones and pH greater than 6.0 may reduce the tendency for uric acid stone formation. Source: [facility] [employer] Current Interpretive Data was last revised on 2017 Protein, ur ql Negative Negative [facility] Glucose, ur ql Negative Negative [facility] Ketones, ur Negative Negative [facility] Bilirubin, ur Negative Negative [facility] Blood, ur Negative Negative [facility] Urobilinogen, ur <2.0 <2.0 mg/dL [facility] Nitrite, ur Positive(A) Negative [facility] Leukocyte esterase, ur 2+(A) Negative [facility] UA reflex comment Reflex to microscopic UA will be performed. [facility] Urine, clean voided 01/17/2024 12:58 PM CDT 01/17/2024 1:30 PM CDT us Aruna Land MANAGER ARCHITECTURE LAB MICROBIOLOGY - GENERAL OR DERABLES Final Result Performing Organization Address [facility] de Phone Number [facility] Department [place] [address] * CPAP aPTT algorithm (01/17/2024 12:58 PM CDT) aPTT 28 28 - 38 sec Comment: Interpretive Data Heparin therapeutic range: 66.0 - 100.0 seconds. Range based on correlation with therapeutic heparin activity range of 0.3 - 0.7 Units/mL. Current interpretive data was last revised on 2023. Blood 01/17/2024 12:5 8 PM CDT 01/17/2024 12:58 PM CDT us Aruna Land MANAGER ARCHITECTURE LAB BLOOD ORDERABLES Final Re sult Performing Organization Address [facility] de Phone Number [facility] [place] [address] * Protime-INR (01/17/2024 12:58 PM CDT) PT 11.0 9.7 - 13.0 sec INR 1.02 0.90 - 1.20 [facility] Comment: Interpretive data Oral anticoagulant therapeutic ranges: Venous thromboembolism prophylaxis or treatment: 2.0-3.0 CARDIOLOGY Standard range: 2.0-3.0 High-intensity range: 2.5-3.5 Refer to indication-specific guidelines for appropriate target ranges for prosthetic heart valve replacement. Current interpretive data was last revised on 2019. Blood 01/17/2024 12:5 8 PM CDT 01/17/2024 12:58 PM CDT Aruna Land MANAGER ARCHITECTURE LAB BLOOD ORDERABLES Final Re sult Performing Organization Address [facility] de Phone Number [facility] Department [place] [address] * TYPE AND SCREEN 14 DAY (01/17/2024 12:58 PM CDT) Pathologist [facility] ABO Rh A Positive Sergio, indirect Negative [facility] Blood 01/17/2024 12:5 8 PM CDT 01/17/2024 1:38 PM CDT Narrative [facility] - 01/17/2024 2:44 PM CDT Is this test being ordered in advance for a procedure?->Yes Expected date of procedure:->01/20/24 Has the patient been transfused in the past 3 months?->No Has the patient been in the past 3 months?->No Aruna Land NP LAB BLOOD BANK TEST ORDERABLE S Final Result [facility] Department [place] [address] * (ABNORMAL) CBC with auto differential (01/17/2024 12:58 PM CDT) [facility] WBC 8.5 3.8 - 9.9 K/cumm Hgb 12.2 11.9 - 15.5 g/dL [facility] Hct 38.1 35.6 - 45.5 % [facility] Plt 231 150 - 400 K/cumm [facility] MPV 10.8 9.1 - 12.3 fL [facility] RBC 4.21 3.90 - 5.20 M/cumm [facility] MCV 90.5 81.3 - 96.4 fL [facility] MCH 29.0 27.1 - 33.3 pg [facility] MCHC 32.0(L) 32.3 - 35.7 g/dL [facility] RDW CV 13.2 11.1 - 14.9 % [facility] RDW SD 43.7 35.7 - 48.1 fL [facility] NRBC abs 0.00 0.00 - 0.01 K/cumm [facility] Blood 01/17/2024 12:5 8 PM CDT 01/17/2024 1:34 PM CDT us Aruna Land MANAGER ARCHITECTURE LAB BLOOD ORDERABLES Final Re sult [facility] Department [place] [address] * (ABNORMAL) Comprehensive metabolic panel (01/17/2024 12:58 PM CDT) Sodium 145 135 - 145 mmol/L Potassium, pl 3.5 3.3 - 4.9 mmol/L [facility] Chloride 106 97 - 110 mmol/L [facility] CO2 25 22 - 32 mmol/L [facility] Anion gap 14 2 - 15 mmol/L [facility] BUN 27(H) 6 - 25 mg/dL [facility] Creatinine 1.05 0.60 - 1.10 mg/dL [facility] Glucose 98 70 - 199 mg/dL [facility] Comment: Interpretive Data Fasting glucose >/= [...] Calcium 9.8 8.5 - 10.3 mg/dL [facility] Bilirubin, total 0.6 0.1 - 1.2 mg/dL [facility] Protein, pl 7.3 6.5 - 8.5 g/dL [facility] Albumin 4.4 3.5 - 5.0 g/dL [facility] Alk phos 104 40 - 130 Units/L [facility] ALT 23 7 - 45 Units/L [facility] AST 28 10 - 45 Units/L [facility] Blood 01/17/2024 12:5 8 PM CDT 01/17/2024 1:32 PM CDT Aruna Land MANAGER ARCHITECTURE LAB BLOOD ORDERABLES Final Re sult Performing Organization Address City/[facility] Co de Phone Number [facility] Department [place] [address] * ECG 12 lead (01/17/2024 11:06 AM CDT) Ventricular Rate EKG/Min 78 BPM [facility] Atrial Rate 78 BPM [facility] NM-Interval (MSEC) 128 ms [facility] QRS-Interval (MSEC) 128 ms [facility] QT-Interval (MSEC) 440 ms [facility] QTc 501 ms [facility] P [place] 69 degrees [facility] R [place] -64 degrees [facility] T [place] 15 degrees [facility] Diagnosis Sinus rhythm with occasional Premature ventricular complexes Possible Left atrial enlargement Right bundle branch block Left anterior fascicular block Bifascicular block Abnormal ECG When compared with ECG of 19-JUN-2016 03:45, Right bundle branch block is new Confirmed by MAHI RACHEL M.D ([id number]) on 01/17/2024 1:22:18 PM [facility] 01/17/2024 11:0 6 AM CDT 01/17/2024 1:22 PM CDT Aruna Land MANAGER ARCHITECTURE ECG ORDERABLES Final Result Performing Organization Address [facility] Co de Phone Number [facility] documented in this encounter Visit Diagnoses Diagnosis [...] 01/28/2024 added in this encounter Care Teams Drawer Waxer Relationship Specialty Start Date End Date Elpidio Serrato MD PCP - General Internal Medicine 06/09/18 documented as of this encounter
--- OUTSIDE RECORDS SUMMARY | 2024-05-20 07:55 | XMS_ITS | Encounter Summary ---
Author Organization [facility] Address [address] [place] [address] Phone Care Team Providers Care Value Analysis Coordinator Name Role Phone Elpidio Serrato MD Primary Care Provider [phone] Reason for Referral * Consultation (Routine) - Closed Specialty Diagnoses / Procedures Referred By Constantino alvarado Referred To Contact Cardiology Diagnoses Dyspnea on exertion Merna Bell MD [address] [facility] [address] [place] [address] Phone: tel: fax: [facility] (All Locations) Referral ID Status Reason Start Date Expiration Date V isits Requested Visits Authorized [id number] Closed Specialty Services Required 10/30/2023 11/28/2024 1 1 Question Answer Please select the performing region: [facility] (All Locations) [[id number]] Is this referral for the [facility]? 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 - I will re-order a stress test to be done at [facility], hopefully in the near future. Addition work-up [...] Referral Reason: Specialty Services Required Referral Location: [facility] (All Locations) Requested Specialty: Cardiology Number [...] AM CDT) NT PROBNP 1,605(H) <125 pg/mL [facility] 11/01/2023 8:30 AM CDT 11/01/2023 8:31 AM CDT Merna Bell MD LAB BLOOD ORDERABLES Final Re sult [facility] [address] [address] * NOTE (11/01/2023 8:30 AM CDT) Note [facility] Comment: This urine was analyzed for the presence of WBC, RBC, bacteria, casts, and other formed elements. Only those elements seen were reported. 11/01/2023 8:30 AM CDT 11/01/2023 8:31 AM CDT Merna Bell MD LAB BLOOD ORDERABLES Final Re sult Performing Organization Address City/[facility]/ZIP Co de Phone Number [facility] [address] [place] [address] * (ABNORMAL) Urinalysis reflex to microscopic (11/01/2023 8:30 AM CDT) Color, ur YELLOW YELLOW [facility] Appearance, ur CLEAR CLEAR [facility] Specific gravity 1.018 1.001 - 1.035 [facility] pH, ur 5.5 5.0 - 8.0 [facility] Glucose, ur 2+(A) NEGATIVE [facility] Bilirubin, ur NEGATIVE NEGATIVE [facility] Ketones, ur NEGATIVE NEGATIVE [facility] Blood, ur NEGATIVE NEGATIVE [facility] Protein, ur, quant NEGATIVE NEGATIVE [facility] Nitrites, ur POSITIVE(A) NEGATIVE [facility] Leukocyte esterase, ur 2+(A) NEGATIVE [facility] WBC, ur 20-40(A) < OR = 5 /HPF [facility] RBC, ur NONE SEEN < OR = 2 /HPF [facility] Epithelial cells, squamous, ur 0-5 < OR = 5 /HPF [facility] Bacteria, ur, quant MANY(A) NONE SEEN /HPF [facility] Hyaline cast NONE SEEN NONE SEEN /LPF [facility] Urine 11/01/2023 8:30 AM CDT 11/01/2023 8:31 AM CDT Merna Bell MD LAB URINE ORDERABLES Final Re sult Performing Organization Address [facility]/ZIP Co de Phone Number [employer] [facility] [address] [place] [address] * Troponin I (11/01/2023 8:30 AM CDT) Troponin I 11 < OR = 47 ng/L [facility] Comment: In accord with published recommendations, serial testing of troponin I at intervals of 2 to 4 hours for up to 12 to 24 hours is suggested in order to corroborate a single troponin I result. An elevated troponin alone is not sufficient to make the diagnosis of MS. Blood 11/01/2023 8:30 AM CDT 11/01/2023 8:31 AM CDT Merna Bell MD LAB BLOOD ORDERABLES Final Re sult Performing Organization Address [facility] Co de Phone Number [employer] [facility] [address] [place] [address] * (ABNORMAL) Renal function panel (11/01/2023 8:30 AM CDT) Glucose 103(H) 65 - 99 mg/dL [facility] Comment: ? Fasting reference interval For [...] Final Re sult [facility] [address] [place] [address] documented in this encounter Visit Diagnoses Diagnosis [...] 10/30/2023 documented in this encounter Care Teams Value Analysis Coordinator Relationship Specialty Start Date End Date Elpidio Serrato MD PCP - General Internal Medicine 06/09/18 documented as of this encounter
--- OUTSIDE RECORDS SUMMARY | 2024-05-20 07:55 | XMS_ITS | Encounter Summary ---
Author Organization [facility] Address [address] [facility] [address] [place] [address] Phone Care Team Providers Care Chiller Tender Name Role Phone Elpidio Serrato MD Primary Care Provider [phone] Reason for Referral * Procedure (Routine) - Closed Specialty Diagnoses / Procedures Referred By Constantino alvarado Referred To Contact Pulmonology Diagnoses Coronary artery disease involving [place] heart, unspecified vessel or lesion type, unspecified whether angina present Encounter for preprocedural cardiovascular examination Procedures Pulmonary Function Test -[facility] Adult PFT Lab- [facility]-8D; Standard; Spirometry, Spirometry w/bronchodilator, DLCO and Lung Volumes Stan Treviño MD [address] [facility] [address] [place] [address] Phone: tel: fax: Referral ID Status Reason Start Date Expiration Date Visits Re quested Visits Authorized [id number] Closed 12/04/2023 01/02/2025 1 1 Reason for Visit * Procedure (Routine) - Closed Specialty Diagnoses / Procedures Referred By Constantino alvarado Referred To Contact Pulmonology Diagnoses Coronary artery disease involving [place] heart, unspecified vessel or lesion type, unspecified whether angina present Encounter for preprocedural cardiovascular examination Procedures Pulmonary Function Test -[facility] Adult PFT Lab- [facility]-8D; Standard; Spirometry, Spirometry w/bronchodilator, DLCO and Lung Volumes Stan Treviño MD [address] [facility] [address] [place] [address] Phone: tel: fax: Referral ID Status Reason Start Date Expiration Date Visits Re quested Visits Authorized [id number] Closed 12/04/2023 01/02/2025 1 1 Encounter Details Date Type Department Care Team (Latest Contact Info) Description 12/12/2023 7:58 AM CDT - 12/12/2023 11:59 PM CDT Hospital Encounter [facility] Pulmonary [address] [facility] [address] [place] [address] Coronary artery disease involving [place] heart, unspecified vessel or lesion type, [...] file Legal Sex Female 3:59 AM SPECIAL EDUCATOR Gender Identity Female 05/13/2021 4:21 PM SPECIAL EDUCATOR Sexual Orientation Not on file documented [...] 8:27 AM CDT Coronary artery disease involving [place] heart, unspecified vessel or lesion type, unspecified whether angina present Encounter for preprocedural cardiovascular examination documented in this encounter Results * Pulmonary Function Test - (12/12/2023 8:27 AM CDT) FVC PRE 2.08 L [facility] FVC %PRE PRED 91 % [facility] FEV1 PRE 1.66 L [facility] FEV1 %PRE PRED 94 % [facility] FEV1/FVC PRE 80.0 % [facility] FRC PL PRE 2.18 L [facility] FRC PL %PRE PRED 89 % [facility] RV PRE 1.72 L [facility] RV %PRE PRED 85 % [facility] TLC PRE 3.90 L [facility] TLC %PRE PRED 90 % [facility] DLCO PRE 15.6 ml/min/mmH g [facility] DLCO %PRE PRED 94 % [facility] Anatomical Region Laterality Modality PFT 12/12/2023 8:13 AM CDT Narrative 12/14/2023 4:01 PM CDT PFT performed at:->[facility] Adult PFT Lab- CAM-8D Procedure:->Standard Standard:->Spirometry, Spirometry [...] and %HbO2 is age dependent. However, the [facility] Pulmonary Function Laboratory defines hypoxemia as a PaO2 <56 mm Hg or a %HbO2 <89%. Stan Treviño MD PFT ORDERABLES Final Result documented in this encounter Visit Diagnoses Diagnosis Coronary artery disease involving [place] heart, unspecified vessel or lesion type, unspecified whether angina present Encounter for preprocedural cardiovascular examination documented in this encounter Care Teams Chiller Tender Relationship Specialty Start Date End Date Elpidio Serrato MD PCP - General Internal Medicine 06/09/18 documented as of this encounter
--- OUTSIDE RECORDS SUMMARY | 2024-05-20 07:55 | XMS_ITS | Encounter Summary ---
Author Organization [facility] Address [address] [place] [address] Phone Care Team Providers Care Import/Export Freight Forwarder Name Role Phone Elpidio Serrato MD Primary Care Provider [phone] Encounter Details Date Type Department Care Team (Late st Contact Info) Description 11/19/2023 Telephone [facility] Cardiology [address] [facility] 8th [place] [address] [place] [address] Kvng Gibson MD [address] [place], [place] [id number] Social History Tobacco Use Types Packs/Day Years [...] on file 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 Patient had abnormal stress test. Yumiko Alejo RN, BSN Clinical Nurse Coordinator [facility] Cardiology documented in this encounter Plan of Treatment Not on file documented as of this encounter Visit Diagnoses Not on filedocumented in this encounter Care Teams Import/Export Freight Forwarder Relationship Specialty Start Date End Date Elpidio Serrato MD PCP - General Internal Medicine 06/09/18 documented as of this encounter
--- OUTSIDE RECORDS SUMMARY | 2024-05-20 07:55 | XMS_ITS | Encounter Summary ---
Author Organization [facility] Address [address] [place] [address] Phone Care Team Providers Care Set Up Inspector Name Role Phone Elpidio Serrato MD Primary Care Provider [phone] Encounter Details Date Type Department Care Team (Late st Contact Info) Description 12/04/2023 Telephone [facility] Cardiology [address] [facility] 8th [place] [address] [place] [address] Kvng Gibson MD [address] [place], [place] [id number] Social History Tobacco Use Types Packs/Day Years [...] file Legal Sex Female 3:59 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 She is have CT surgery testing on 12/11. Will cancel her appt for 12/09 and reschedule once results are reviewed. Pt agreeable to plan. * Telephone Encounter - Knvg Gibson MD - 12/04/2023 10:59 AM CDT [...] in this encounter Care Teams Set Up Inspector Relationship Specialty Start Date End Date Elpidio Serrato MD PCP - General Internal Medicine 06/09/18 documented as of this encounter
--- OUTSIDE RECORDS SUMMARY | 2024-05-20 07:55 | XMS_ITS | Encounter Summary ---
Author Organization [facility] Address [address] [facility] [address] [place] [address] Phone Care Team Providers Care Bull Bucker Name Role Phone Elpidio Serrato MD Primary Care Provider [phone] Encounter Details Date Type Department Care Team (Late st Contact Info) Description 12/19/2023 Orders Only [facility] Cardiothoracic Surgery [address] [facility] Advanced Medicine 8th Floor [address] [place], [place] [address] Columba Leslie PROFESSOR OF GENETICS [address] [facility] [address] [place] [address] Social History Tobacco Use Types Packs/Day Years [...] on file Legal Sex Female 3:59 AM LINGO CLEANER Gender Identity Female 05/13/2021 4:21 PM LINGO CLEANER Sexual Orientation Not on file documented as [...] on filedocumented in this encounter Care Teams Bull Bucker Relationship Specialty Start Date End Date Elpidio Serrato MD PCP - General Internal Medicine 06/09/18 documented as of this encounter
--- OUTSIDE RECORDS SUMMARY | 2024-05-20 07:55 | XMS_ITS | Encounter Summary ---
Author Organization [facility] Address [address] [place] [address] Care Team Providers Care Professor Of Engineering Name Role Phone Elpidio Serrato MD Primary Care Provider [phone] Reason for Visit * Auth/Cert (Routine) Specialty Diagnoses / Procedures Referred By Contac t Referred To Contact Diagnoses Coronary artery disease, unspecified vessel or lesion type, unspecified whether angina present, unspecified whether [place] or transplanted heart Coronary artery disease, unspecified vessel or lesion type, unspecified whether angina present, unspecified whether [place] or transplanted heart [I25.10] Procedures VA CABG W/ARTERIAL GRAFT THREE ARTERIAL GRAFTS VA NDSC SURG W/VIDEO-ASSISTED HARVEST VEIN CABG 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 x3 OROZCO VEIN 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 Referral ID Status Reason Start Date Expiration Date Visits Re quested Visits Authorized [id number] 1 1 Encounter Details Date Type Department Care Team (Latest Contact Info) Description 01/17/2024 12:50 PM CDT - 01/17/2024 11:59 PM CDT Hospital Encounter [facility] ([facility]) [address] [place] [address] Pre-operative exam Discharge Disposition: Discharge to home [...] on file Legal Sex Female 3:59 AM AIR BRAKE OPERATOR Gender Identity Female 05/13/2021 4:21 PM AIR BRAKE OPERATOR Sexual Orientation Not on file documented [...] signed by: Erica Mustafa M.D. Aruna Land AUTO BODY SHOP MANAGER IMG XR PROCEDURES Final Resul t documented in this encounter Visit Diagnoses Diagnosis Pre-operative exam Unspecified pre-operative examination documented in this encounter Care Teams Professor Of Engineering Relationship Specialty Start Date End Date Elpidio Serrato MD PCP - General Internal Medicine 06/09/18 documented as of this encounter
--- OUTSIDE RECORDS SUMMARY | 2024-05-20 07:55 | XMS_ITS | Encounter Summary ---
Author Organization [facility] Healthcare Address [address] [place] [address] Care Team Providers Care Microsystems Engineer Name Role Phone Elpidio Serrato MD Primary Care Provider [phone] Reason for Visit * Reason Comments SHOP Patient Eligibility Review Encounter Details Date Type Department Care Team (Late st Contact Info) Description 11/18/2023 SHOP/CHAP Initial Eligibility Review [facility]NAGEMENT [address] [place] [address] Inge Dunbar, [facility] [address] [facility] ([facility]) Mailstop [phone] [place] [address] Social History Tobacco Use Types Packs/Day Years [...] on file Legal Sex Female 3:59 AM SAILING MASTER Gender Identity Female 05/13/2021 4:21 PM SAILING MASTER Sexual Orientation Not on file documented as of this encounter Plan of Treatment Not on file documented as of this encounter Visit Diagnoses Not on filedocumented in this encounter Care Teams Microsystems Engineer Relationship Specialty Start Date End Date Elpidio Serrato MD PCP - General Internal Medicine 06/09/18 documented as of this encounter
--- OUTSIDE RECORDS SUMMARY | 2024-05-20 07:55 | XMS_ITS | Encounter Summary ---
Author Organization [facility] Address [address] [place] [address] Phone Care Team Providers Care Scheduling Manager Name Role Phone Elpidio Serrato MD Primary Care Provider [phone] Reason for Visit * Reason Onset Date Comments Letter and Labs 10/30/2023 Encounter Details Date Type Department Care Team (Late st Contact Info) Description 10/30/2023 Telephone [facility] Endocrinology Metabolism and Lipid [address] [facility] Advanced Medicine 13th [place] [address] [place] [address] Martha Boyer RMA Letter and [...] on file Legal Sex Female 3:59 AM MOLD YARD CRANE OPERATOR Gender Identity Female 05/13/2021 4:21 PM MOLD YARD CRANE OPERATOR Sexual Orientation Not on file documented as of this encounter Miscellaneous Notes * Telephone Encounter - Martha Boyer RMA - 10/30/2023 9:09 AM CDT As requested by JAMES Fitzgerald, letter and labs were faxed over to pt PCP Elpidio Serrato at [phone]. documented in this encounter Plan of Treatment Not on file documented as of this encounter Visit Diagnoses Not on filedocumented in this encounter Care Teams Scheduling Manager Relationship Specialty Start Date End Date Elpidio Serrato MD PCP - General Internal Medicine 06/09/18 documented as of this encounter
--- OUTSIDE RECORDS SUMMARY | 2024-05-20 07:56 | XMS_ITS | Encounter Summary ---
Author Organization [facility] Address [address] [place] [address] Phone Care Team Providers Care Rural Carrier Associate Name Role Phone Elpidio Serrato MD Primary Care Provider [phone] Encounter Details Date Type Department Care Team (Late st Contact Info) Description 10/29/2023 Orders Only [facility] Endocrinology Metabolism and Lipid [address] [facility] Advanced Medicine 13th [place] [address] [place] [address] Lia Mariano, [employer] [address] [place] [address] Hypertension, unspecified type (Primary Dx) Social History [...] on file Legal Sex Female 3:59 AM HUMAN RESOURCES PARTNER Gender Identity Female 05/13/2021 4:21 PM HUMAN RESOURCES PARTNER Sexual Orientation Not on file documented as [...] CDT 10/29/2023 8:22 PM CDT Lia Mariano [employer]CHIT[employer]URE INTERNSH[employer] LAB BLOOD ORDERABLES Phyllis l Result [facility] Department [place] [address] documented in this encounter Visit Diagnoses Diagnosis [...] documented as of this encounter Care Teams Rural Carrier Associate Relationship Specialty Start Date End Date Elpidio Serrato MD PCP - General Internal Medicine 06/09/18 documented as of this encounter
--- OUTSIDE RECORDS SUMMARY | 2024-05-20 07:56 | XMS_ITS | Encounter Summary ---
Author Organization [facility] Address [address] [place] [address] Phone Care Team Providers Care Party Plan Sales Director Name Role Phone Elpidio Serrato MD Primary Care Provider [phone] Reason for Visit * Reason Comments Primary open angle glaucoma (POAG) of yesy th eyes, moderate s Encounter Details Date Type Department Care Team (Late st Contact Info) Description 02/11/2023 9:45 AM CDT [facility] [place] [address] Makayla Ramos MD [address] [place] [address] Primary open angle glaucoma (POAG) [...] on file Legal Sex Female 3:59 AM INSURANCE BILLER Gender Identity Female 05/13/2021 4:21 PM INSURANCE BILLER Sexual Orientation Not on file documented as [...] Oriented x3: Yes Mood/Affect: Normal Care Teams Party Plan Sales Director Relationship Specialty Start Date End Date Elpidio Serrato MD PCP - General Internal Medicine 06/09/18 documented as of this encounter
--- OUTSIDE RECORDS SUMMARY | 2024-05-20 07:56 | XMS_ITS | Encounter Summary ---
Author Organization [facility] Address [address] [place] [address] Phone Care Team Providers Care Hardboard Supervisor Name Role Phone Elpidio Serrato MD Primary Care Provider [phone] Encounter Details Date Type Department Care Team (Late st Contact Info) Description 08/26/2023 Orders Only [facility] Endocrinology Metabolism and Lipid [address] [facility] Advanced Medicine 13th [place] [address] [place] [address] Shirley Mcdonnell, A [address] [place] [address] Social History Tobacco Use Types Packs/Day Years [...] file Legal Sex Female 3:59 AM AIR VALVE REPAIRER Gender Identity Female 05/13/2021 4:21 PM AIR VALVE REPAIRER Sexual Orientation Not on file documented [...] documented as of this encounter Care Teams Hardboard Supervisor Relationship Specialty Start Date End Date Elpidio Serrato MD PCP - General Internal Medicine 06/09/18 documented as of this encounter
--- OUTSIDE RECORDS SUMMARY | 2024-05-20 07:56 | XMS_ITS | Encounter Summary ---
Author Organization [facility] Healthcare Address [address] [place] [address] Care Team Providers Care Butcher Chicken And Fish Name Role Phone Elpidio Serrato MD Primary Care Provider Reason for Visit * Auth/Cert Specialty Diagnoses / Procedures Referred By Contac t Referred To Contact Diagnoses Primary open angle glaucoma (POAG) of both eyes, moderate stage Nuclear sclerotic cataract of left eye Primary open angle glaucoma (POAG) of both eyes, moderate stage [H40.1132] Nuclear sclerotic cataract of left eye [H25.12] Procedures ME XCAPSL CTRC RMVL INSJ IO LENS PROSTH W/O ECP ME GONIOTOMY ME XCAPSL CTRC RMVL INSJ IO LENS PROSTH CPLX WO ECP EXTRACTION CATARACT - PHACOEMULSIFICATION AND LENS IMPLANT GONIOTOMY Referral ID Status Reason Start Date Expiration Date Visits Re quested Visits Authorized [id number] 1 1 Encounter Details Date Type Department Care Team (Late st Contact Info) Description 08/16/2022 8:36 AM CDT Anesthesia Event [facility] Operating [facility]) [address] [place] [address] Francisco Balderas MD [address] [place] [address] Marisol Mars NP [address] [facility] [place] [address] Anesthesia Record Procedure Summary Procedure Name Responsible [...] on file Legal Sex Female 3:59 AM MEDIA TECHNICIAN Gender Identity Female 05/13/2021 4:21 PM MEDIA TECHNICIAN Sexual Orientation Not on file documented as of this encounter OR Notes * Anesthesia Postprocedure Evaluation - Wally Man MD - 08/16/2022 9:36 AM CDT Patient: Isabelle Lutz Procedure Summary Date: 08/16/22 Room / Location: [facility] CAM OR POD 4 ROOM P / [facility] CAM OR POD 4 Anesthesia Start: 835 [...] Preoperative Evaluation Record Evaluation type/location: TPAP from [facility] Planned procedure site: [facility] CAM OR (Pod 4) Date: 08/03/22 [...] provided by telephone and electronically sent via Bluesocket. Patient verbalized understanding of preoperative plan. Blood bank needs for day of procedure: No type and screen needed Pending labs/tests include: POC Glucose The patient is on aspirin therapy for primary prevention. The bleeding risk for the planned procedure is insignificant and therefore aspirin can be continued throughout the periprocedural period. Please call the CPAP chart room clinician ([phone]) with any questions. TPAP complete Preoperative evaluation [...] EXTRACTION Right 06/14/2022 CE/IOL + goniotomy ??? [place] APPENDECTOMY unkown dates per pt ??? [place] DELIVERY ONLY Section - in 1972 and 1975 (Added by TW Conv) ??? ME TENDON SHEATH INCISION Hand Incision Tendon [...] taking differently: Take 88 mcg by mouth pet house sitter before breakfast metFORMIN (GLUCOPHAGE) 500 mg tablet [...] Medication protocol when under care of a DATABASE MARKETING ANALYST Planned anesthesia: MAC Induction: Induction: intravenous. Postoperative [...] mg documented in this encounter Care Teams Butcher Chicken And Fish Relationship Specialty Start Date End Date Elpidio Serrato MD PCP - General Internal Medicine 06/09/18 documented as of this encounter
--- OUTSIDE RECORDS SUMMARY | 2024-05-20 07:56 | XMS_ITS | Encounter Summary ---
Author Organization [facility] Healthcare Address [address] [place] [address] Care Team Providers Care Consulting Intern Name Role Phone Elpidio Serrato MD Primary Care Provider [phone] Reason for Visit * Auth/Cert Specialty Diagnoses / Procedures Referred By Contac t Referred To Contact Diagnoses Primary open angle glaucoma (POAG) of both eyes, moderate stage Nuclear sclerotic cataract of left eye Primary open angle glaucoma (POAG) of both eyes, moderate stage [H40.1132] Nuclear sclerotic cataract of left eye [H25.12] Procedures [place] XCAPSL CTRC RMVL INSJ IO LENS PROSTH W/O ECP [place] GONIOTOMY [place] XCAPSL CTRC RMVL INSJ IO LENS PROSTH CPLX WO ECP EXTRACTION CATARACT - PHACOEMULSIFICATION AND LENS IMPLANT GONIOTOMY Referral ID Status Reason Start Date Expiration Date Visits Re quested Visits Authorized [id number] 1 1 Encounter Details Date Type Department Care Team (Latest Contact Info) Description 08/16/2022 9:00 AM CDT - 08/16/2022 9:45 AM CDT Surgery [facility] Operating Room [facility]) [facility] [place] [address] Makayla Ramos MD [address] [place] [id number] EXTRACTION CATARACT - PHACOEMULSIFICATION AND LENS IMPLANT Surgery Details Date/Time Status Location OR Service Patient Class Case Cl ass Case Type Trauma Case? 08/16/2022 9:00 AM Posted [facility] CAM OR POD 4 P Ophthalmology [...] on file Legal Sex Female 3:59 AM RAILROAD COOK Gender Identity Female 05/13/2021 4:21 PM RAILROAD COOK Sexual Orientation Not on file documented as [...] your vision Whom to call with concerns: [phone] - [facility] or [phone] - [facility] If after hours, listen to the voicemail for instructions for contacting the Eye Doctor gate person. Thank you for entrusting us with your eye care. * Attachments The following attachments cannot be sent through Care Everywhere. * [facility] PATHWAY TO EXCELLENT CARE AFTER SURGERY [...] Preoperative Evaluation Record Evaluation type/location: TPAP from [facility] Planned procedure site: [facility] CAM OR (Pod 4) Date: 08/03/22 [...] Cardiovascular Pertinent negatives: hypertension ; CAD ; UT ; CABG ; valvular heart disease; atrial [...] provided by telephone and electronically sent via Divesquare. Patient verbalized understanding of preoperative plan. Blood bank needs for day of procedure: No type and screen needed Pending labs/tests include: POC Glucose The patient is on aspirin therapy for primary prevention. The bleeding risk for the planned procedure is insignificant and therefore aspirin can be continued throughout the periprocedural period. Please call the CPAP chart room clinician ([phone]) with any questions. TPAP complete Preoperative evaluation [...] TW Conv) ??? Nonproliferative diabetic retinopathy (CMS/HCC) ([facility]) 11/03/2009 ??? Personal history of other specified conditions History of chest pain - Stress test negative on 08/01/06 (Added by TW Conv) Past Surgical History: Procedure Laterality Date ??? CATARACT EXTRACTION Right 06/14/2022 CE/IOL + goniotomy ??? [place] APPENDECTOMY unkown dates per pt ??? [place] DELIVERY ONLY Section - in 1972 and 1975 (Added by TW Conv) ??? [place] TENDON SHEATH INCISION Hand Incision Tendon Sheath [...] taking differently: Take 88 mcg by mouth cytogeneticist before breakfast metFORMIN (GLUCOPHAGE) 500 mg tablet [...] goniotomy left eye. SURGEON: Makayla Ramos MD HIGHWAY TECHNICIAN: Swapna Head MD Implants: Implant Name Type Inv. Item Serial No. Player Piano Technician Lot No. LRB No. Used Action VALEANT Andela LENS IOL POSTERIOR BICONVEX OPTIC SINGLE PIECE ENVISTA 6.0X12.5 +18.0D HYDROPHOBIC ACRYLIC [id number] - [id number] - [id number] Lens [employer] Lens Iol Posterior Biconvex Optic Single Piece Envista 6.0x12.5 +18.0d Hydrophobic Acrylic [id number] [employer] [id number] Left 1 Implanted ANESTHESIA: MAC with Local [...] Preoperative Assessment and Planning CPAP Clinic Location: [facility] The night before your surgery: * [...] (Patient takingdifferently: Take 88 mcg by mouth cytogeneticist before breakfast) 90 tablet 3 metFORMIN (GLUCOPHAGE) [...] the skin) 9 mL 3 Implants Lens [employer] Lens Iol Posterior Biconvex Optic Single Piece Envista 6.0x12.5 +18.0d Hydrophobic Acrylic [id number] - [id number] - [id number] - Implanted (Right) Lens Inventory item: Photodigm Lens Iol Posterior Biconvex Optic Single Piece Envista 6.0x12.5 +18.0d Hydrophobic Acrylic [id number] Model/Cat number: [id number] Serial number: [id number] Player Piano Technician: [employer] Device identifier: [id number] Device identifier type: GS1 As of 06/14/2022 [...] provided Information Provided on Healthcare Directives: Yes Communication/Vice President Sales Needs Communication Needs: Glasses Does caregiver's language differ from patient's?: No Assistive Devices/DME: Eyeglasses Discharge Planning Type of Residence: Private residence Living Arrangements: Family members Support Systems: Family members Assistance Needed: Daughter to provide discharge transportation Patient expects to be discharged to:: Private residence LAWN SPRINKLER SERVICER NO ADDITIONAL COMMENTS/ FOLLOW UP * Pre-Procedure [...] remove nail coverings, artificial nails and nail bangladeshi prior to the day of surgery. You should leave your valuables and any jewelry at home. No metal or piercings are allowed in the operating room. You should bring your insurance card, a photo ID (example: Boiler Setter's License) and a method of payment for [...] Chart. If you are having surgery at [facility], please arrive on the [...] Remove nail coverings, artificial nails and nail bangladeshi. Place clean linens on your bed the [...] questions, please call the CPAP Staff at [phone], Saturday-Saturday 8am-4:30pm. All patients should read the below section: All visitors/patients are being asked to wear a clean face mask when entering the hospital. COVID 19 Updates & Visitor Policy: Please access [email or web address] for the most updated information. Information on [facility]: Please view [email or web address] (Patient & Visitor Information) for additional details regarding Advanced Directive forms, AWARE, directions, parking information, lodging, Internet access, dining and more. Information on [facility] or [facility] ([facility]): Please view [email or web address] (Patient and Visitor Information) for parking/directions and more. For MyChart information, to activate account or password recovery, please go to [email or web address] or call [phone] (toll-free: [phone]). Information for Suicide Prevention: National Suicide Prevention Lifeline (6-840- 783-IERL (4252)). Surgery Times: For patients having surgery @ [facility], [facility] or [facility] ([facility]), if your surgeon's office has not notified you of your surgery time by NOON THE BUSINESS DAY BEFORE your surgery, please call [phone] and ask for your surgeon's office . [...] POC 75 70 - 199 mg/dL [facility] Blood 08/16/2022 9:14 AM CDT 08/16/2022 9:14 AM CDT Makayla Ramos MD LAB POCT ORDERABLES - DEVICE Final Result Performing Organization Address City/[facility]/ZIP Co de Phone Number [facility] [place] [address] * POCT glucose (08/16/2022 8:07 AM CDT) Glucose, POC 82 70 - 199 mg/dL [facility] Blood 08/16/2022 8:07 AM CDT 08/16/2022 8:07 AM CDT Maakyla Ramos MD LAB POCT ORDERABLES - DEVICE Final Result JORGE [facility] Department [place] [address] documented in this encounter Visit Diagnoses Diagnosis [...] Once as needed, nausea, vomiting, Starting on Dimla 08/16/22 at 0908, For 1 dose, Phase [...] 08/16/2022 documented in this encounter Care Teams Consulting Intern Relationship Specialty Start Date End Date Elpidio Serrato MD PCP - General Internal Medicine 06/09/18 documented as of this encounter
--- OUTSIDE RECORDS SUMMARY | 2024-05-20 07:56 | XMS_ITS | Encounter Summary ---
Author Organization [facility] Address [address] [place] [address] Phone Care Team Providers Care Bean Weigher Name Role Phone Elpidio Serrato MD Primary Care Provider [phone] Encounter Details Date Type Department Care Team (Late st Contact Info) Description 06/22/2022 Orders Only [facility] Endocrinology Metabolism and Lipid [address] [facility] 13th [place] [address] [place] [address] Princess Hu RMA Social History [...] on file Legal Sex Female 3:59 AM RATTAN WORKER Gender Identity Female 05/13/2021 4:21 PM RATTAN WORKER Sexual Orientation Not on file documented [...] documented as of this encounter Care Teams Bean Weigher Relationship Specialty Start Date End Date Elpidio Serrato MD PCP - General Internal Medicine 06/09/18 documented as of this encounter
--- OUTSIDE RECORDS SUMMARY | 2024-05-20 07:56 | XMS_ITS | Encounter Summary ---
Author Organization [facility] Address [address] [place] [address] Phone Care Team Providers Care System Consultant Name Role Phone Elpidio Serrato MD Primary Care Provider [phone] Reason for Visit * Reason Comments Primary open angle glaucoma (POAG) of yesy th eyes, moderate s Encounter Details Date Type Department Care Team (Late st Contact Info) Description 07/15/2023 8:45 AM KICK PRESS OPERATOR Office Visit [facility] Ophthalmology [facility] [place] [address] Makayla Ramos MD [address] [place] [address] Primary open angle glaucoma (POAG) [...] on file Legal Sex Female 3:59 AM KICK PRESS OPERATOR Gender Identity Female 05/13/2021 4:21 PM KICK PRESS OPERATOR Sexual Orientation Not on file [...] agree with the findings/plan of the Resident/Fellow PRESS OPERATOR documented in this encounter Miscellaneous Notes * Assessment & Plan Note - Makayla Ramos MD - 07/15/2023 8:54 AM KICK PRESS OPERATOR Associated Problem(s): Primary open angle glaucoma (POAG) of both eyes, moderate stage Doing well without concerns IOP at goal Continue current drops Follow 6 months with HVf/OCT OU PRESS OPERATOR * Assessment & Plan Note - Makayla Ramos MD - 07/15/2023 8:54 AM KICK PRESS OPERATOR Associated Problem(s): Pseudophakia of both eyes Lenses doing well PRESS OPERATOR documented in this encounter Plan [...] Normal Normal Periphery Normal Normal Care Teams System Consultant Relationship Specialty Start Date End Date Elpidio Serrato MD PCP - General Internal Medicine 06/09/18 documented as of this encounter
--- OUTSIDE RECORDS SUMMARY | 2024-05-20 07:56 | XMS_ITS | Encounter Summary ---
Author Organization [facility] Address [address] [place] [address] Phone Care Team Providers Care Rejected Items Clerk Name Role Phone Elpidio Serrato MD Primary Care Provider [phone] Encounter Details Date Type Department Care Team (Late st Contact Info) Description 04/29/2023 8:50 AM PACK OUT OPERATOR Lab 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, with long-term current use of insulin, unspecified laterality (HCC) CBC WITH AUTO DIFFERENTIAL Routine 04/29/2023 8:58 AM PACK OUT OPERATOR 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, with long-term current use of insulin, unspecified laterality (HCC) ALBUMIN CREATININE RATIO, URINE Routine 04/29/2023 8:58 AM PACK OUT OPERATOR 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, with long-term current use of insulin, unspecified laterality (HCC) VITAMIN D 25 HYDROXY Routine 04/29/2023 8:58 AM PACK OUT OPERATOR Vitamin D deficiency LIPID PANEL Routine 04/29/2023 8:58 AM PACK OUT OPERATOR 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, with long-term current use of insulin, unspecified laterality (HCC) COMPREHENSIVE METABOLIC PANEL Routine 04/29/2023 8:58 AM PACK OUT OPERATOR 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, with long-term current use of insulin, unspecified laterality (HCC) documented in this encounter Results * (ABNORMAL) CBC with auto differential (04/29/2023 8:58 AM PACK OUT OPERATOR) White Blood Count 8.9 3.6 - 11.2 [...] [facility] Blood 04/29/2023 8:58 AM PACK OUT OPERATOR 04/29/2023 10:20 AM PACK OUT OPERATOR us Merna Bell MD LAB BLOOD ORDERABLES Final Re sult [facility] * (ABNORMAL) Comprehensive metabolic panel (04/29/2023 8:58 AM PACK OUT OPERATOR) Total Protein 6.9 6.1 - 8.4 g/dL [...] [facility] Blood 04/29/2023 8:58 AM PACK OUT OPERATOR 04/29/2023 10:20 AM PACK OUT OPERATOR Merna Bell MD LAB BLOOD ORDERABLES Final Re sult Performing Organization Address [facility] Co de Phone Number [facility] * TSH reflex to free T4 (04/29/2023 8:58 AM PACK OUT OPERATOR) TSH (Thyrotropin) 1.65 0.27 - 4.20 uIU/mL [facility] Blood 04/29/2023 8:58 AM PACK OUT OPERATOR 04/29/2023 10:20 AM PACK OUT OPERATOR Merna Bell MD LAB BLOOD ORDERABLES Final Re sult [facility] * (ABNORMAL) Lipid panel (04/29/2023 8:58 AM PACK OUT OPERATOR) Triglycerides 147 <150 mg/dL [facility] [...] [facility] Blood 04/29/2023 8:58 AM PACK OUT OPERATOR 04/29/2023 10:20 AM PACK OUT OPERATOR Narrative [facility] - 04/29/2023 1:02 PM PACK OUT OPERATOR Current interpretive data was last updated April 14, 2021. For adults ages 40-79, the ACC/AHA recommends discussing your 10-year atherosclerotic cardiovascular disease risk with your health care provider. ??https://www.acc.org/ASCVDApp Merna Bell MD LAB BLOOD ORDERABLES Final Re sult [facility] * Albumin Creatinine Ratio, Urine (04/29/2023 8:58 AM PACK OUT OPERATOR) Microalb, Ur 8.7 0.0 - 22.9 mg/L [facility] Comment:Repeated and Verifie d Random Urine Creatinine 103.8 mg/dL [facility] Microalb/Creat Ratio 8.4 0.0 - 29.9 mg/g [facility] Urine 04/29/2023 8:58 AM PACK OUT OPERATOR 04/29/2023 10:20 AM PACK OUT OPERATOR Merna Bell MD LAB URINE ORDERABLES Final Re sult [facility] * Vitamin D 25 hydroxy (04/29/2023 8:58 AM PACK OUT OPERATOR) Vitamin D 74.6 20.0 - 100.0 ng/mL [facility] Comment: VITAMIN D DEFICIENCY = LESS THAN or EQUAL TO 20 ng/mL VITAMIN D INSUFFICIENCY = 21 - 29 ng/mL VITAMIN D SUFFICIENT = 30-100 ng/mL Blood 04/29/2023 8:58 AM PACK OUT OPERATOR 04/29/2023 10:20 AM PACK OUT OPERATOR us Merna Bell MD LAB BLOOD ORDERABLES Final Re sult [facility] documented in this encounter Visit Diagnoses Diagnosis Vitamin D deficiency 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
--- OUTSIDE RECORDS SUMMARY | 2024-05-20 07:56 | XMS_ITS | Encounter Summary ---
Author Organization [facility] Address [address] [place] [address] Phone Care Team Providers Care Top Dyeing Machine Tender Name Role Phone Elpidio Serrato MD Primary Care Provider [phone] Reason for Visit * Reason Comments Osteopenia * Diagnostic Imaging (Routine) - Closed Specialty Diagnoses / Procedures Referred By Contac t Referred To Contact Diagnoses Osteoporosis without current pathological fracture, unspecified osteoporosis type Procedures Dexa Axial Skeleton Bone Density 1 or 2 Site Merna Bell MD Phone: tel: fax: [facility] (All Locations) Referral ID Status Reason Start Date Expiration Date Visits Re quested Visits Authorized [id number] Closed 07/03/2022 08/02/2023 1 1 Encounter Details Date Type Department Care Team (Latest Contact Info) Description 12/03/2022 10:10 AM CDT Clinical Support [facility] [address] [place] [address] 5th [place] [address] [place] [address] Osteopenia of multiple sites (Primary Dx); Osteoporosis [...] on file Legal Sex Female 3:59 AM ENTRY LEVEL SOFTWARE DEVELOPER Gender Identity Female 05/13/2021 4:21 PM ENTRY LEVEL SOFTWARE DEVELOPER Sexual Orientation Not on file documented [...] Bone mineral density was performed on a HoloInstabeat Discovery Densitometer. ?? Based on machine cross-calibration [...] by the International Society of Clinical Densitometry. [id number] us Merna Bell MD IMG DXA PROCEDURES Final Resu lt documented in this encounter Visit Diagnoses Diagnosis Osteopenia of multiple sites- Primary Osteoporosis without current pathological fracture, unspecified osteoporosis type Post-menopausal Asymptomatic postmenopausal status (age-related) (natural) documented in this encounter Care Teams Top Dyeing Machine Tender Relationship Specialty Start Date End Date Elpidio Serrato MD PCP - General Internal Medicine 06/09/18 documented as of this encounter
--- OUTSIDE RECORDS SUMMARY | 2024-05-20 07:56 | XMS_ITS | Encounter Summary ---
Author Organization [facility] Address [address] [place] [address] Phone Care Team Providers Care Bricklayer Helper Name Role Phone Elpidio Serrato MD Primary Care Provider Encounter Details Date Type Department Care Team (Latest Contact Info) Description 04/29/2023 8:20 AM LEAD MASON TENDER Office Visit [facility] Endocrinology Metabolism and Lipid [address] [facility] 13th [place] [address] [place] [address] Merna Bell MD [address] [facility] [address] [place] [address] Type 2 diabetes mellitus with moderate nonproliferative [...] file Legal Sex Female 3:59 AM LEAD MASON TENDER Gender Identity Female 05/13/2021 4:21 PM LEAD MASON TENDER Sexual Orientation Not on file documented as of this encounter Last Filed Vital Signs Vital Sign Reading Time Taken Comments Blood Pressure 118/56 04/29/2023 8:05 AM LEAD MASON TENDER Pulse 78 04/29/2023 8:05 AM LEAD MASON TENDER Temperature 36.7 ??C (98.1 ??F) 04/29/2023 8:05 AM CS T Respiratory Rate - - Oxygen Saturation - - Inhaled Oxygen Concentration - - Weight 93.6 kg (206 lb 6.4 oz) 04/29/2023 8:05 A M LEAD MASON TENDER Height 151.9 cm (4' 11.8 ) 04/29/2023 8:05 AM CS T Body Mass Index 40.58 04/29/2023 8:05 AM LEAD MASON TENDER documented in this encounter Patient Instructions * Patient Instructions* Merna Bell MD - 04/29/2023 8:20 AM LEAD MASON TENDER Schedule Reclast infusion MASON TENDER documented in this encounter Progress Notes * [...] Assessment & Plan Type 2 diabetes mellitus ([facility]) Glucoses are excellent , A1c 5.8%, which [...] POCT hemoglobin A1c -- Merna Bell MD used car make ready mechanic Endocrinology, Metabolism, & Lipid Research MASON TENDER documented in this encounter Plan of Treatment Not on file documented as of this encounter Procedures Procedure Name Priority Date/Time Associated Diagnosis Comments POCT HEMOGLOBIN A1C Routine 04/29/2023 8:15 AM LEAD MASON TENDER 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, with long-term current use of insulin, unspecified laterality (HCC) POCT GLUCOSE [id number] Routine 04/29/2023 8: 12 AM LEAD MASON TENDER 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, with long-term current use of insulin, unspecified laterality (HCC) documented in this encounter Results * Vitamin D 25 hydroxy (04/29/2023 8:58 AM LEAD MASON TENDER) Vitamin D 74.6 20.0 - 100.0 ng/mL [facility] Comment: VITAMIN D DEFICIENCY = LESS THAN or EQUAL TO 20 ng/mL VITAMIN D INSUFFICIENCY = 21 - 29 ng/mL VITAMIN D SUFFICIENT = 30-100 ng/mL Blood 04/29/2023 8:58 AM LEAD MASON TENDER 04/29/2023 10:20 AM LEAD MASON TENDER us Merna Bell MD LAB BLOOD ORDERABLES Final Re sult [facility] * Albumin Creatinine Ratio, Urine (04/29/2023 8:58 AM LEAD MASON TENDER) Microalb, Ur 8.7 0.0 - 22.9 mg/L [facility] Comment:Repeated and Verifie d Random Urine Creatinine 103.8 mg/dL [facility] Microalb/Creat Ratio 8.4 0.0 - 29.9 mg/g [facility] Urine 04/29/2023 8:58 AM LEAD MASON TENDER 04/29/2023 10:20 AM LEAD MASON TENDER Merna Bell MD LAB URINE ORDERABLES Final Re sult Performing Organization Address [facility] Co de Phone Number [facility] * (ABNORMAL) Lipid panel (04/29/2023 8:58 AM LEAD MASON TENDER) Triglycerides 147 <150 mg/dL [facility] [...] [facility] Blood 04/29/2023 8:58 AM LEAD MASON TENDER 04/29/2023 10:20 AM LEAD MASON TENDER Narrative [facility] - 04/29/2023 1:02 PM LEAD MASON TENDER Current interpretive data was last updated April 14, 2021. For adults ages 40-79, the ACC/AHA recommends discussing your 10-year atherosclerotic cardiovascular disease risk with your health care provider. ??https://www.acc.org/ASCVDApp Merna Bell MD LAB BLOOD ORDERABLES Final Re sult Performing Organization Address [facility] Co de Phone Number [facility] * TSH reflex to free T4 (04/29/2023 8:58 AM LEAD MASON TENDER) TSH (Thyrotropin) 1.65 0.27 - 4.20 uIU/mL [facility] Blood 04/29/2023 8:58 AM LEAD MASON TENDER 04/29/2023 10:20 AM LEAD MASON TENDER Merna Bell MD LAB BLOOD ORDERABLES Final Re sult Performing Organization Address City/[facility] Co de Phone Number [facility] * (ABNORMAL) Comprehensive metabolic panel (04/29/2023 8:58 AM LEAD MASON TENDER) Total Protein 6.9 6.1 - 8.4 g/dL [...] [facility] Blood 04/29/2023 8:58 AM LEAD MASON TENDER 04/29/2023 10:20 AM LEAD MASON TENDER us Merna Bell MD LAB BLOOD ORDERABLES Final Re sult [facility] * (ABNORMAL) CBC with auto differential (04/29/2023 8:58 AM LEAD MASON TENDER) White Blood Count 8.9 3.6 - 11.2 [...] [facility] Blood 04/29/2023 8:58 AM LEAD MASON TENDER 04/29/2023 10:20 AM LEAD MASON TENDER us Merna Bell MD LAB BLOOD ORDERABLES Final Re sult [facility] * POCT hemoglobin A1c (04/29/2023 8:15 AM LEAD MASON TENDER) Hemoglobin A1C, POC 5.8 % Blood 04/29/2023 8:15 AM LEAD MASON TENDER Merna Bell MD POINT OF CARE TEST ORDERABLES Final Result * POCT glucose (04/29/2023 8:12 AM LEAD MASON TENDER) Glucose Blood, POC 176 mg/dL Blood 04/29/2023 8:12 AM LEAD MASON TENDER Merna Bell MD POINT OF CARE TEST [...] (HCC) documented in this encounter Care Teams Bricklayer Helper Relationship Specialty Start Date End Date Elpidio Serrato MD PCP - General Internal Medicine 06/09/18 documented as of this encounter
--- OUTSIDE RECORDS SUMMARY | 2024-05-20 07:56 | XMS_ITS | Encounter Summary ---
Author Organization [facility] Address [address] [place] [address] Phone Care Team Providers Care Sample Room Supervisor Name Role Phone Elpidio Serrato MD Primary Care Provider [phone] Encounter Details Date Type Department Care Team (Late st Contact Info) Description 10/29/2023 9:30 AM CDT Lab [facility] Endocrinology Metabolism and Lipid [address] 12th [place] [address] [place] [address] Type 2 diabetes mellitus with [...] on file Legal Sex Female 3:59 AM COFFEE GROWER Gender Identity Female 05/13/2021 4:21 PM COFFEE GROWER Sexual Orientation Not on file documented as [...] 10/29/2023 11:19 AM CDT Lia Mariano AUTO FLEET MANAGER LAB URINE ORDERABLES Phyllis l Result Performing Organization Address [facility] Co de Phone Number [facility] [...] AM CDT 10/29/2023 11:[address] [facility] - 10/29/2023 1:02 PM [...] ORDERABLES Phyllis l Result Performing Organization Address City/[facility]/ZIP Co de Phone Number [facility] * T4, free (10/29/2023 9:30 AM CDT) Free T4 1.38 0.80 - 1.80 ng/dL [facility] Blood 10/29/2023 9:30 AM CDT 10/29/2023 11:19 AM CDT Lia Mariano AUTO FLEET MANAGER LAB BLOOD ORDERABLES Phyllis l Result [facility] * TSH (10/29/2023 9:30 AM CDT) Pathologist [facility] TSH (Thyrotropin) 0.69 0.27 - 4.20 uIU/mL [facility] Blood 10/29/2023 9:30 AM CDT 10/29/2023 11:19 AM CDT Lia Mariano AUTO FLEET MANAGER LAB BLOOD ORDERABLES Phyllis l Result Performing Organization Address [facility] de Phone Number [facility] [...] 10/29/2023 11:19 AM CDT Lia Mariano AUTO FLEET MANAGER LAB BLOOD ORDERABLES Phyllis l Result [facility] [...] 10/29/2023 11:19 AM CDT Lia Mariano AUTO FLEET MANAGER LAB BLOOD ORDERABLES Phyllis l Result [facility] * Vitamin D 25 hydroxy (10/29/2023 9:30 AM CDT) Pathologist [facility] Vitamin D 83.0 20.0 - 100.0 ng/mL [facility] Comment: VITAMIN D DEFICIENCY = LESS THAN or EQUAL TO 20 ng/mL VITAMIN D INSUFFICIENCY = 21 - 29 ng/mL VITAMIN D SUFFICIENT = 30-100 ng/mL Blood 10/29/2023 9:30 AM CDT 10/29/2023 11:19 AM CDT Lia Mariano AUTO FLEET MANAGER LAB BLOOD ORDERABLES Phyllis l Result [facility] documented in this encounter Visit Diagnoses Diagnosis Type 2 diabetes mellitus with hyperlipidemia (HCC) Vitamin D deficiency Acquired hypothyroidism Unspecified hypothyroidism documented in this encounter Care Teams Sample Room Supervisor Relationship Specialty Start Date End Date Elpidio Serrato MD PCP - General Internal Medicine 06/09/18 documented as of this encounter
--- OUTSIDE RECORDS SUMMARY | 2024-05-20 07:56 | XMS_ITS | Encounter Summary ---
Author Organization [facility] Address [address] [place] [address] Phone Care Team Providers Care Impregnator And Drier Name Role Phone Elpidio Serrato MD Primary Care Provider [phone] Encounter Details Date Type Department Care Team (Late st Contact Info) Description 08/20/2023 Orders Only [facility] Endocrinology Metabolism and Lipid [address] [facility] 13[address] [place] [address] [place] [address] Princess Hu RMA Social History [...] on file Legal Sex Female 3:59 AM WASHERY ENGINEER Gender Identity Female 05/13/2021 4:21 PM WASHERY ENGINEER Sexual Orientation Not on file documented [...] on filedocumented in this encounter Care Teams Impregnator And Drier Relationship Specialty Start Date End Date Elpidio Serrato MD PCP - General Internal Medicine 06/09/18 documented as of this encounter
--- OUTSIDE RECORDS SUMMARY | 2024-05-20 07:56 | XMS_ITS | Encounter Summary ---
Author Organization [facility] Address [address] [place] [address] Phone Care Team Providers Care Interactive Project Manager Name Role Phone Elpidio Serrato MD Primary Care Provider Encounter Details Date Type Department Care Team (Latest Contact Info) Description 10/29/2023 9:00 AM CDT Office Visit [facility] Endocrinology Metabolism and Lipid [address] 13th [place] [address] [place] [address] Lia Mariano, UNIX CONSULTANT [address] [place] [address] Type 2 diabetes mellitus with hyperlipidemia (HCC) [...] on file Legal Sex Female 3:59 AM INFORMATION SYSTEMS PLANNER Gender Identity Female 05/13/2021 4:21 PM INFORMATION SYSTEMS PLANNER Sexual Orientation Not on file documented [...] Encounter POCT glucose POCT hemoglobin A1c --LEONARD [facility] Division of Endocrinology, Metabolism, & Lipid Research [address] [place] [id number] Cosigned by Merna Bell MD at 11/02/2023 [...] CDT 10/29/2023 11:19 AM CDT Lia Mariano UNIX CONSULTANT LAB BLOOD ORDERABLES Phyllis l Result [facility] [...] CDT 10/29/2023 11:19 AM CDT Lia Mariano UNIX CONSULTANT LAB BLOOD ORDERABLES Phyllis alanis Result [facility] [...] CDT 10/29/2023 11:19 AM CDT Lia Mariano UNIX CONSULTANT LAB BLOOD ORDERABLES Phyllis l Result Performing Organization Address City/[facility] Co de Phone Number [facility] * TSH (10/29/2023 9:30 AM CDT) Pathologist [facility] TSH (Thyrotropin) 0.69 0.27 - 4.20 uIU/mL [facility] Blood 10/29/2023 9:30 AM CDT 10/29/2023 11:19 AM CDT Lia Mariano UNIX CONSULTANT LAB BLOOD ORDERABLES Phyllis l Result Performing Organization Address [facility] Co de Phone Number [facility] * T4, free (10/29/2023 9:30 AM CDT) Pathologist [facility] Free T4 1.38 0.80 - 1.80 ng/dL [facility] Blood 10/29/2023 9:30 AM CDT 10/29/2023 11:19 AM CDT Lia Mariano UNIX CONSULTANT LAB BLOOD ORDERABLES Phyllis l Result Performing Organization Address City/[facility] Co de Phone Number [facility] * Albumin Creatinine Ratio, Urine (10/29/2023 9:30 AM CDT) Microalb, Ur 7.9 0.0 - 22.9 mg/L [facility] Random Urine Creatinine 109.6 mg/dL [facility] Microalb/Creat Ratio 7.2 0.0 - 29.9 mg/g [facility] Urine 10/29/2023 9:30 AM CDT 10/29/2023 11:19 AM CDT Lia Mariano UNIX CONSULTANT LAB URINE ORDERABLES Phyllis l Result Performing Organization Address [facility]/ZIP Co de Phone Number [facility] [...] [facility] [place] LDL Chol 92 <190 mg/dL [facility] Blood 10/29/2023 9:30 AM CDT 10/29/2023 11:19 AM CDT Narrative [facility] - 10/29/2023 1:02 [...] to getting your blood drawn. Lia Mariano UNIX CONSULTANT LAB BLOOD ORDERABLES Phyllis l Result [facility] * POCT hemoglobin A1c (10/29/2023 8:55 AM CDT) Hemoglobin A1C, POC 5.9 % Blood 10/29/2023 8:55 AM CDT us Lia Mariano UNIX CONSULTANT POINT OF CARE TEST ORDERA BLES Final Result * POCT glucose (10/29/2023 8:55 AM CDT) Glucose Blood, POC 99 mg/dL Blood 10/29/2023 8:55 AM CDT us Lia Mariano UNIX CONSULTANT POINT OF CARE TEST ORDERA BLES Final [...] documented as of this encounter Care Teams Interactive Project Manager Relationship Specialty Start Date End Date Elpidio Serrato MD PCP - General Internal Medicine 06/09/18 documented as of this encounter
--- OUTSIDE RECORDS SUMMARY | 2024-05-20 07:56 | XMS_ITS | Encounter Summary ---
Author Organization [facility] Address [address] [place] [address] Phone Care Team Providers Care Rural Sociologist Name Role Phone Elpidio Serrato MD Primary Care Provider [phone] Reason for Visit * Reason Onset Date Comments 08/16/2022 Surgery 06/25/2022 Encounter Details Date Type Department Care Team (Late st Contact Info) Description 06/25/2022 Telephone [facility] Ophthalmology [address] 2nd [address], [address] [place] [address] Geovanna Doe COA 08/16/2022 Surgery [...] file Legal Sex Female 3:59 AM CAMPUS SAFETY OFFICER Gender Identity Female 05/13/2021 4:21 PM CAMPUS SAFETY OFFICER Sexual Orientation Not on file documented as of this encounter Miscellaneous Notes * Telephone Encounter - Geovanna Doe COA - 06/25/2022 9:21 AM CAMPUS SAFETY OFFICER Phoned patient to schedule surgery: Discussed surgery [...] auth: [] Line up (arrival time) [] US SAFETY OFFICER US SAFETY OFFICER US SAFETY OFFICER documented in this encounter Plan of Treatment Not on file documented as of this encounter Visit Diagnoses Not on filedocumented in this encounter Care Teams Rural Sociologist Relationship Specialty Start Date End Date Elpidio Serrato MD PCP - General Internal Medicine 06/09/18 documented as of this encounter
--- OUTSIDE RECORDS SUMMARY | 2024-05-20 07:56 | XMS_ITS | Encounter Summary ---
Author Organization [facility] Address [address] [place] [address] Phone Care Team Providers Care Disulfurizer Tender Name Role Phone Elpidio Serrato MD Primary Care Provider [phone] Reason for Visit * Reason Comments Post-op Follow-up Encounter Details Date Type Department Care Team (Late st Contact Info) Description 08/17/2022 8:15 AM CDT Office Visit [facility] Ophthalmology [facility] [facility] [place] [address] Makayla Ramos MD [address] [place] [address] Primary open angle glaucoma (POAG) [...] on file Legal Sex Female 3:59 AM FLOWER GROWER Gender Identity Female 05/13/2021 4:21 PM FLOWER GROWER Sexual Orientation Not on file documented [...] [place] ctive Lens PCIOL PCIOL Care Teams Disulfurizer Tender Relationship Specialty Start Date End Date Elpidio Serrato MD PCP - General Internal Medicine 06/09/18 documented as of this encounter
--- OUTSIDE RECORDS SUMMARY | 2024-05-20 07:56 | XMS_ITS | Encounter Summary ---
Author Organization [facility] Address [address] [place] [address] Phone Care Team Providers Care Direct Service Worker Name Role Phone Elpidio Serrato MD Primary Care Provider [phone] Encounter Details Date Type Department Care Team (Latest Contact Info) Description 12/03/2022 11:20 AM CDT Office Visit [facility] Endocrinology Metabolism and Lipid [address] [facility] 13th [place] [address] [place] [address] Merna Bell MD [address] [facility] [address] [place] [address] Type 2 diabetes mellitus with moderate nonproliferative [...] file Legal Sex Female 3:59 AM DIGITAL PUBLISHING SPECIALIST Gender Identity Female 05/13/2021 4:21 PM DIGITAL PUBLISHING SPECIALIST Sexual Orientation Not on file documented [...] not included. Endocrinology Outpatient Clinic Note Patient: Isablele Lutz, 72 y.o. female (: 1950 ) [...] pregnancies, 2 children - C-sections. (Added by [employer] Conv) Nonproliferative diabetic retinopathy (HCC) 11/03/2009 Personal history of other specified conditions History of chest pain - Stress test negative on 08/01/06 (Added by [employer] Conv) Past Surgical History: Procedure Laterality Date CATARACT EXTRACTION Right 06/14/2022 CE/IOL + goniotomy DE APPENDECTOMY unkown dates per pt DE DELIVERY ONLY Section - in 1972 and 1975 (Added by [employer] Conv) DE TENDON SHEATH INCISION Hand Incision Tendon Sheath Of A Finger - right hand, III finger, 08/20 (Added by Arkadin) Social & Family History Social History Tobacco [...] Other Thyroid Disorder - mother (Added by [employer] Conv) Diabetes type II Other Type II Diabetes Mellitus - mother (Added by [employer] Conv) Anesthesia problems Neg Hx Review of [...] Assessment & Plan Type 2 diabetes mellitus (CMS/[facility]) Glucoses are excellent , A1c 6.0%, [...] 40 mg tablet -- Merna Bell MD rubber vulcanizing machine operator Endocrinology, Metabolism, & Lipid Research documented in this encounter Plan of Treatment Not on file documented as of this encounter Procedures Procedure Name Priority Date/Time Associated Diagnosis Comments POCT HEMOGLOBIN A1C Routine 12/03/2022 10:12 AM CDT 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
--- OUTSIDE RECORDS SUMMARY | 2024-05-20 07:56 | XMS_ITS | Encounter Summary ---
Author Organization [facility] Address [address] [place] [address] Phone Care Team Providers Care Case Packer Name Role Phone Elpidio Serrato MD Primary Care Provider [phone] Reason for Visit * Reason Onset Date Comments 08/16/2022 Surgery 08/08/2022 Encounter Details Date Type Department Care Team (Late st Contact Info) Description 08/08/2022 Telephone [facility] Ophthalmology [address] [facility] [address], [address] [place] [address] Geovanna Doe COA 08/16/2022 Surgery [...] file Legal Sex Female 3:59 AM ASSEMBLY ADJUSTER Gender Identity Female 05/13/2021 4:21 PM ASSEMBLY ADJUSTER Sexual Orientation Not on file documented as of this encounter Miscellaneous Notes * Telephone Encounter - Geovanna Doe COA - 08/15/2022 9:15 AM CDT Spoke to patient and gave all surgery details for surgery scheduled on 08/16/[address] Ramos Arrival time: 7:00am Surgery is at [facility] on the 4th floor. Remember; nothing to eat or drink after midnight the night before and make sure they have a cdl b driver to drive them home (family member or friend). For the patient's safety, Uber/Taxis are not acceptable transportation after discharge. Address: [facility], 4th floor surgery center. [address] [place] [address] * Telephone Encounter - Geovanna Doe COA - 08/08/2022 3:21 PM CDT Phoned patient to schedule surgery: Discussed surgery date: 08/16/2022 Location: [facility] [x] [facility] [] Plan from notes: CEIOL/goniotomy OS 44 [...] filedocumented in this encounter Care Teams Case Packer Relationship Specialty Start Date End Date Elpidio Serrato MD PCP - General Internal Medicine 06/09/18 documented as of this encounter
--- OUTSIDE RECORDS SUMMARY | 2024-05-20 07:56 | XMS_ITS | Encounter Summary ---
Author Organization [facility] Healthcare Address [address] [place] [address] Care Team Providers Care Sound Tester Name Role Phone Elpidio Serrato MD Primary Care Provider [phone] Encounter Details Date Type Department Care Team (Latest Contact Info) Description 10/29/2023 9:30 AM CDT - 10/29/2023 11:59 PM CDT Hospital Encounter [place] [id number] Hypertension, unspecified type Discharge Disposition: Discharge to [...] on file Legal Sex Female 3:59 AM FURNACE CARETAKER Gender Identity Female 05/13/2021 4:21 PM FURNACE CARETAKER Sexual Orientation Not on file documented as [...] 10/29/2023 8:22 PM CDT us Lia Mariano RIDER TICKET WORKER LAB BLOOD ORDERABLES Phyllis alanis Result Performing Organization Address City/State/[facility] Co de Phone Number [facility] [place] [address] documented in this encounter Visit Diagnoses Diagnosis Hypertension, unspecified type documented in this encounter Care Teams Sound Tester Relationship Specialty Start Date End Date Elpidio Serrato MD PCP - General Internal Medicine 06/09/18 documented as of this encounter
--- OUTSIDE RECORDS SUMMARY | 2024-05-20 07:56 | XMS_ITS | Encounter Summary ---
Author Organization [facility] Healthcare Address [address] [place] [address] Care Team Providers Care Insurance Examining Clerk Name Role Phone Elpidio Serrato MD Primary Care Provider [phone] Reason for Visit * Auth/Cert Specialty Diagnoses / Procedures Referred By Contac t Referred To Contact Diagnoses Nuclear sclerotic cataract of both eyes Primary open angle glaucoma of both eyes, moderate stage Nuclear sclerotic cataract of both eyes [H25.13] Primary open angle glaucoma of both eyes, moderate stage [H40.1132] Procedures AL XCAPSL CTRC RMVL INSJ IO LENS PROSTH W/O ECP AL GONIOTOMY EXTRACTION CATARACT - PHACOEMULSIFICATION AND LENS IMPLANT - right eye GONIOTOMY - right eye Referral ID Status Reason Start Date Expiration Date Visits Re quested Visits Authorized [id number] 1 1 Encounter Details Date Type Department Care Team (Latest Contact Info) Description 06/14/2022 9:15 AM LIBRARY CLERICAL ASSISTANT - 06/14/2022 9:50 AM LIBRARY CLERICAL ASSISTANT Surgery [facility] Operating Room [id number] [place] [address] Makayla Ramos MD [facility] [place] [address] EXTRACTION CATARACT - PHACOEMULSIFICATION AND LENS IMPLANT - right eye Surgery Details Date/Time Status Location OR Service Patient Class Case Cl ass Case Type Trauma Case? 06/14/2022 9:15 AM Posted [facility] CAM OR POD 4 P [...] on file Legal Sex Female 3:59 AM LIBRARY CLERICAL ASSISTANT Gender Identity Female 05/13/2021 4:21 PM LIBRARY CLERICAL ASSISTANT Sexual Orientation Not on file documented as of this encounter Last Filed Vital Signs Vital Sign Reading Time Taken Comments Blood Pressure 101/38 06/14/2022 9:50 AM LIBRARY CLERICAL ASSISTANT RN to retake, inaccurate Pulse 79 06/14/2022 9:50 AM LIBRARY CLERICAL ASSISTANT Temperature 36 ??C (96.8 ??F) 06/14/2022 9:4 0 AM LIBRARY CLERICAL ASSISTANT Respiratory Rate 16 06/14/2022 9:50 AM LIBRARY CLERICAL ASSISTANT Oxygen Saturation 97% 06/14/2022 9:5 0 AM LIBRARY CLERICAL ASSISTANT Inhaled Oxygen Concentration - - Weight 99.8 kg (220 lb) 05/30/2022 1:55 PM LIBRARY CLERICAL ASSISTANT Height 152.4 cm (5') 05/30/2022 1:55 PM LIBRARY CLERICAL ASSISTANT Body Mass Index 42.97 05/30/2022 1:55 PM LIBRARY CLERICAL ASSISTANT documented in this encounter Discharge Instructions * Discharge Instructions* Makayla Ramos MD - 06/14/2022 9:38 AM LIBRARY CLERICAL ASSISTANT Eye Surgery Post-Op Instructions Your surgeon???s name: [...] your vision Whom to call with concerns: [phone] - [facility] or [phone] - [facility] If after hours, listen to the voicemail for instructions for contacting the Eye Doctor production checker. Thank you for entrusting us with your eye care. ARY CLERICAL ASSISTANT * Attachments The following attachments cannot be sent through Care Everywhere. * [facility] PATHWAY TO EXCELLENT CARE AFTER [...] - right eye GONIOTOMY - right eye ARY CLERICAL ASSISTANT Source Note - Griselda Bang NP - 05/31/2022 8:25 AM LIBRARY CLERICAL ASSISTANT Images from the original note were not included. [facility] Planning Preoperative Evaluation Record Evaluation type/location: TPAP from [facility] Planned procedure site: [facility] CAM OR (Pod 4) Date: [...] Cardiovascular Pertinent negatives: hypertension ; CAD ; [place] ; CABG ; valvular heart disease; atrial [...] provided by telephone and electronically sent via v2 Ratings. Patient verbalized understanding of preoperative plan. Blood bank needs for day of procedure: No type and screen needed Pending labs/tests include: POC Glucose The patient is on aspirin therapy for primary prevention. The bleeding risk for the planned procedure is insignificant and therefore aspirin can be continued throughout the periprocedural period. Please call the CPAP chart room clinician ([phone]) with any questions. TPAP complete Preoperative evaluation [...] Diabetes mellitus (HCC) ??? Diabetic retinopathy (CMS/HCC) ([facility]) ??? Glaucoma ??? Multiparity History Of ___ Previous Pregnancies - 7 pregnancies, 2 children - C-sections. (Added by TW Conv) ??? Nonproliferative diabetic retinopathy (CMS/HCC) ([facility]) 11/03/2009 ??? Personal history of other specified conditions History of chest pain - Stress test negative on 08/01/06 (Added by TW Conv) Past Surgical History: Procedure Laterality Date ??? AL APPENDECTOMY unkown dates per pt [...] OK CALCIUM ORAL 05/30/2022 -- -- Aldair Presctot MD celecoxib (CeleBREX) 200 mg capsule 05/30/2022 [...] taking differently: Take 88 mcg by mouth production grader before breakfast metFORMIN (GLUCOPHAGE) 500 mg tablet [...] last 720 hours. Kathrin index score: 100 ARY CLERICAL ASSISTANT documented in this encounter Miscellaneous Notes * Op Note - Makayla Ramos MD - 06/14/2022 9:24 AM CST DATE: 06/14/2022 PREOPERATIVE DIAGNOSIS: 1) Primary open angle glaucoma right eye. 2) Visually significant nuclear sclerotic cataract of right eye. POSTOPERATIVE DIAGNOSIS: same OPERATION PERFORMED: Phacoemulsification with intraocular lens implant and ab interno goniotomy right eye. SURGEON: Makayla Ramos MD ASSISTANT DEPARTMENT MANAGER: none Implants: Implant Name Type Inv. Item Serial No. Keyseating Machine Set Up Operator Lot No. LRB No. Used Action [employer] LENS IOL POSTERIOR BICONVEX OPTIC SINGLE PIECE ENVISTA 6.0X12.5 +18.0D HYDROPHOBIC ACRYLIC [id number] - [id number] - [id number] Lens [employer] Lens Iol PosteriorBiconvex Optic Single Piece Envista 6.0x12.5 +18.0d Hydrophobic Acrylic [id number] [employer] Right 1 Implanted ANESTHESIA: MAC with [...] None CONDITION ON DISCHARGE FROM OPERATING ROOM:stable ARY CLERICAL ASSISTANT * Perioperative Nursing Note - Fabi Mathews RN - 06/14/2022 9:18 AM LIBRARY CLERICAL ASSISTANT Intraocular lens implant ordered and verified per surgeon prior to implantation ARY CLERICAL ASSISTANT * Pre-Procedure Instructions - Griselda Bang NP - 05/31/2022 8:20 AM CST [facility] Planning CPAP Clinic Location: [facility] The night before your surgery: * [...] going to be admitted after surgery at [facility], COVID testing may be performed on the day of surgery, even if you are up to date on your COVID-19 vaccine. * If having surgery at [facility], you may want to bring a credit card if you want to use our Mobile Pharmacy for your discharge medications. Mobile pharmacy is not available at [facility], the [facility], or the [place] [facility]. Outpatient Surgery: * You must have [...] with COVID-19. You test positive for COVID-19. ARY CLERICAL ASSISTANT * Perioperative Nursing Note - Katie Nicolas RN - 05/30/2022 2:00 PM LIBRARY CLERICAL ASSISTANT Center for Preoperative Assessment and Planning Perioperative Nursing Note Telephone Preoperative Evaluation ([facility]) - TELEPHONE ONLY, NO PHYSICAL [...] (Patient takingdifferently: Take 88 mcg by mouth production grader before breakfast) 90 tablet 3 metFORMIN (GLUCOPHAGE) [...] Family members Assistance Needed: pt will have trailer truck driver day of surgery Patient expects to be discharged to:: Private residence [facility]ER NO ADDITIONAL COMMENTS/ FOLLOW UP ARY CLERICAL ASSISTANT * Pre-Procedure Instructions - Katie Nicolas RN - 05/30/2022 1:57 PM LIBRARY CLERICAL ASSISTANT [facility] PRE[facility] (CPAP) [...] your insurance card, a photo ID (example: Machine Marker's License) and a method of payment for [...] If you are having surgery at [facility], please arrive on the day [...] questions, please call the CPAP Staff at [phone], Saturday-Saturday 8am-4:30pm. All patients should read the below section: All visitors/patients are being asked to wear a clean face mask when entering the hospital. COVID 19 Updates & Visitor Policy: Please access [email or web address] for the most updated information. Information on [facility]: Please view [email or web address] (Patient & Visitor Information) for additional details regarding Advanced Directive forms, AWARE, directions, parking information, lodging, Internet access, dining and more. Information on [facility] or [facility] ([facility]): Please view [email or web address] (Patient and Visitor Information) for parking/directions and more. For MyChart information, to activate account or password recovery, please go to [email or web address] or call [phone] (toll-free: [phone]). Information for Suicide Prevention: National Suicide Prevention Lifeline (8-124- 893-WNXW (8413)). Surgery Times: For patients having surgery @ [facility], [facility], [facility] or [facility] ([facility]), if your surgeon's office has not notified you of your surgery time by NOON THE BUSINESS DAY BEFORE your surgery, please call [phone] and ask for your surgeon's office Dr Ramos. For patients having [facility] @ [facility], if your surgeon's office has not notified you of your surgery time by NOON THE BUSINESS DAY BEFORE your surgery, please call the surgery center [phone]. ARY CLERICAL ASSISTANT documented in this encounter Plan of Treatment Not on file documented as of this encounter Procedures Procedure Name Priority Date/Time Associated Diagnosis Comments POCT GLUCOSE DEVICE Routine 06/14/2022 9 :46 AM LIBRARY CLERICAL ASSISTANT GONIOTOMY 06/14/2022 9:16 AM LIBRARY CLERICAL ASSISTANT Nuclear sclerotic cataract of both eyes Primary open angle glaucoma of both eyes, moderate stage EXTRACTION CATARACT - PHACOEMULSIFICATION AND LENS IMPLANT 06/14/2022 9:16 AM LIBRARY CLERICAL ASSISTANT Nuclear sclerotic cataract of both eyes Primary open angle glaucoma of both eyes, moderate stage POCT GLUCOSE DEVICE Routine 06/14/2022 9 :01 AM LIBRARY CLERICAL ASSISTANT documented in this encounter Results * POCT glucose (06/14/2022 9:46 AM LIBRARY CLERICAL ASSISTANT) Glucose, POC 86 70 - 199 mg/dL [facility] Blood 06/14/2022 9:46 AM LIBRARY CLERICAL ASSISTANT 06/14/2022 9:46 AM LIBRARY CLERICAL ASSISTANT us Makayla Ramos MD LAB POCT ORDERABLES - DEVICE Final [facility] Department [place] [address] * POCT glucose (06/14/2022 9:01 AM LIBRARY CLERICAL ASSISTANT) Glucose, POC 84 70 - 199 mg/dL [facility] Blood 06/14/2022 9:01 AM LIBRARY CLERICAL ASSISTANT 06/14/2022 9:01 AM LIBRARY CLERICAL ASSISTANT us Makayla Ramos MD LAB POCT ORDERABLES - DEVICE Final Result [facility] Department [place] [address] documented in this encounter Visit Diagnoses Diagnosis [...] at 0924, Intra-Op Given 06/14/2022 9:24 AM LIBRARY CLERICAL ASSISTANT 15 mL Right Eye BSS-EPINEPHrine 0.3 mg preservative free intraocular solution (total volume 500 mL) As needed, Starting on Dilma 06/14/22 at 0924, Intra-Op Given 06/14/2022 9:24 AM LIBRARY CLERICAL ASSISTANT 500 mL cefuroxime (ZINACEF) 20 mg/2 mL in sodium chloride 0.9% intracameral (premix) As needed, Starting on Dilma 06/14/22 at 0001, Intra-Op Given 06/14/2022 12:01 AM LIBRARY CLERICAL ASSISTANT 0.1 mL dilating cocktail ophthalmic solution 0.3 [...] During Ocular Surgery Given 06/14/2022 9:03 AM LIBRARY CLERICAL ASSISTANT 0.3 mL Given 06/14/2022 8:48 AM LIBRARY CLERICAL ASSISTANT 0.3 mL Lactated Ringer's (LR) infusion 30 mL/hr, intravenous, Continuous, Starting on Dilma 06/14/22 at 0900, Pre-Op Rate/Dose Verify 06/14/2022 9:17 AM LIBRARY CLERICAL ASSISTANT 30 m L/hr New Bag 06/14/2022 8:48 AM LIBRARY CLERICAL ASSISTANT 30 mL/hr 30 mL/hr lidocaine PF (XYLOCAINE) 10 mg/mL (1 %) preservative free injection As needed, Starting on Dilma 06/14/22 at 0925, Intra-Op Given 06/14/2022 9:25 AM LIBRARY CLERICAL ASSISTANT 0.2 mL neomycin-polymyxin B-dexAMETHasone (MAXITROL) ophthalmic ointment As needed, Starting on Dilma 06/14/22 at 0925, Intra-Op Given 06/14/2022 9:25 AM LIBRARY CLERICAL ASSISTANT 1 application (deactivated) prochlorperazine (COMPAZINE) injection 5 mg 5 mg, intravenous, Administer over 2 Minutes, Once as needed, nausea, vomiting, Starting on Dilma 06/14/22 at 0946, For 1 dose, Phase I, If nausea/vomiting not relieved by ondansetron within 30 minutes or if ondansetron has been given within the last 6 hours. Given 06/14/2022 9:50 AM LIBRARY CLERICAL ASSISTANT 5 mg tetracaine (PF) (ALTACAINE) 0.5 % ophthalmic solution As needed, Starting on Dilma 06/14/22 at 0925, Intra-Op, Indications: Administration of Corneal AnesthesiaIndications:Administ ration of Corneal Anesthesia Given 06/14/2022 9:25 AM LIBRARY CLERICAL ASSISTANT 2 drops documented in this encounter Discontinued [...] Recently Administered Medications Times are shown in LIBRARY CLERICAL ASSISTANT. Scheduled Medication Order 06/12/2022 06/13/2022 06/14/2022 dilating [...] 0925, Intra-Op 0925 (Given - Provid er: Mkaayla Ramos MD) neomycin-polymyxin B-dexAMETHasone (MAXITROL) ophthalmic ointment [...] 06/14/2022 documented in this encounter Care Teams Insurance Examining Clerk Relationship Specialty Start Date End Date Elpidio Serrato MD PCP - General Internal Medicine 06/09/18 documented as of this encounter
--- OUTSIDE RECORDS SUMMARY | 2024-05-20 07:56 | XMS_ITS | Encounter Summary ---
Author Organization [facility] Address [address] [place] [address] Phone Care Team Providers Care Adult Specialist Name Role Phone Elpidio Serrato MD Primary Care Provider [phone] Reason for Referral * Diagnostic Imaging (Routine) - Closed Specialty Diagnoses / Procedures Referred By Constantino alvarado Referred To Contact Diagnoses Primary open angle glaucoma (POAG) of both eyes, moderate stage Procedures OCT, Optic Nerve - OU - Both Eyes Makayla Ramos MD [address] [place] [address] Phone: tel: fax: [facility] (All Locations) Referral ID Status Reason Start Date Expiration Date Visits Re quested Visits Authorized [id number] Closed 10/18/2022 11/17/2023 1 1 Encounter Details Date Type Department Care Team (Late st Contact Info) Description 10/18/2022 Orders Only [facility] Ophthalmology [facility] [place] [address] Makayla Ramos MD [address] [place] [address] Primary open angle glaucoma (POAG) [...] on file Legal Sex Female 3:59 AM BACTERIOLOGIST DAIRY Gender Identity Female 05/13/2021 4:21 PM BACTERIOLOGIST DAIRY Sexual Orientation Not on file documented as [...] stage documented in this encounter Care Teams Adult Specialist Relationship Specialty Start Date End Date Elpidio Serrato MD PCP - General Internal Medicine 06/09/18 documented as of this encounter
--- OUTSIDE RECORDS SUMMARY | 2024-05-20 07:56 | XMS_ITS | Encounter Summary ---
Author Organization [facility] Address [address] [place] [address] Phone Care Team Providers Care Mechanical Specialist Name Role Phone Elpidio Serrato MD Primary Care Provider [phone] Reason for Visit * Reason Comments Post-op Follow-up Encounter Details Date Type Department Care Team (Late st Contact Info) Description 08/24/2022 10:15 AM CDT Office Visit [facility] Ophthalmology [facility] [place] [address] Makayla Ramos MD [address] [place] [address] Primary open angle glaucoma (POAG) [...] file Legal Sex Female 3:59 AM NUCLEAR PLANT EQUIPMENT OPERATOR Gender Identity Female 05/13/2021 4:21 PM NUCLEAR PLANT EQUIPMENT OPERATOR Sexual Orientation Not on file documented [...] newton ctive Lens PCIOL PCIOL Care Teams Mechanical Specialist Relationship Specialty Start Date End Date Elpidio Serrato MD PCP - General Internal Medicine 06/09/18 documented as of this encounter
--- OUTSIDE RECORDS SUMMARY | 2024-05-20 07:56 | XMS_ITS | Encounter Summary ---
Author Organization [facility] Address [address] [place] [address] Phone Care Team Providers Care Coagulating Drying Supervisor Name Role Phone Elpidio Serrato MD Primary Care Provider [phone] Encounter Details Date Type Department Care Team (Late st Contact Info) Description 06/22/2022 7:45 AM ROOM SERVICE SUPERVISOR Office Visit [facility] Ophthalmology [address] [facility] [address] Makayla Ramos MD [address] [place] [address] Primary open angle glaucoma (POAG) [...] on file Legal Sex Female 3:59 AM ROOM SERVICE SUPERVISOR Gender Identity Female 05/13/2021 4:21 PM ROOM SERVICE SUPERVISOR Sexual Orientation Not on file documented [...] agree with the findings/plan of the Resident/Fellow SERVICE SUPERVISOR * Mile Neal COA - 06/22/2022 7:45 AM CST 06/25/2022 - LVM for patient to call me back to schedule surgery. SERVICE SUPERVISOR documented in this encounter Miscellaneous Notes * Addendum Note - Mile Neal COA - 06/22/2022 7:45 AM CSTAddended by: MILE NEAL on: 06/27/2022 11:13 AM Modules accepted: Orders SERVICE SUPERVISOR * Assessment & Plan Note - Makayla Ramos MD - 06/22/2022 7:41 AM ROOM SERVICE SUPERVISOR Associated Problem(s): Pseudophakia of both eyes The [...] perioperative steroids: no Book Phaco/IOL/goniotomy left eye. SERVICE SUPERVISOR * Assessment & Plan Note - Makayla Ramos MD - 06/22/2022 7:41 AM ROOM SERVICE SUPERVISOR Associated Problem(s): Primary open angle glaucoma (POAG) [...] is to call. Follow for surgery OS SERVICE SUPERVISOR documented in this encounter Plan of Treatment Not on file documented as of this encounter Procedures Procedure Name Priority Date/Time Associated Diagnosis Comments IOL CALCULATION 2ND EYE 82787 - OS - LEFT EYE Routine 06/22/2022 7:45 AM ROOM SERVICE SUPERVISOR Nuclear sclerotic cataract of both eyes documented in this encounter Results * IOL Calculation 2nd Eye 16551 - OS - Left Eye (06/22/2022 7:45 AM ROOM SERVICE SUPERVISOR) Anatomical Region Laterality Modality Head Ophthalmic Axial [...] Round and reactive Lens PCIOL Care Teams Coagulating Drying Supervisor Relationship Specialty Start Date End Date Elpidio Serrato MD PCP - General Internal Medicine 06/09/18 documented as of this encounter
--- OUTSIDE RECORDS SUMMARY | 2024-05-20 07:56 | XMS_ITS | Encounter Summary ---
Author Organization [facility] Address [address] [place] [address] Phone Care Team Providers Care Launderer Hand Name Role Phone Elpidio Serrato MD Primary Care Provider [phone] Reason for Visit * Reason Comments Post-op Follow-up Encounter Details Date Type Department Care Team (Late st Contact Info) Description 10/05/2022 7:45 AM CDT Office Visit [facility] Ophthalmology [facility] [place] [address] Makayla Ramos MD [address] [place] [address] Primary open angle glaucoma (POAG) [...] on file Legal Sex Female 3:59 AM DISC SANDER Gender Identity Female 05/13/2021 4:21 PM DISC SANDER Sexual Orientation Not on file documented [...] today, prefers to use readers. Care Teams Launderer Hand Relationship Specialty Start Date End Date Elpidio Serrato MD PCP - General Internal Medicine 06/09/18 documented as of this encounter
--- OUTSIDE RECORDS SUMMARY | 2024-05-20 07:56 | XMS_ITS | Encounter Summary ---
Author Organization [facility] Address [address] [place] [address] Phone Care Team Providers Care Tube Making Machine Operator Name Role Phone Elpidio Serrato MD Primary Care Provider [phone] Reason for Referral * Diagnostic Imaging (Routine) - Closed Specialty Diagnoses / Procedures Referred By Contac t Referred To Contact Diagnoses Osteoporosis without current pathological fracture, unspecified osteoporosis type Procedures Dexa Axial Skeleton Bone Density 1 or 2 Site Merna Bell MD Phone: tel: fax: [facility] (All Locations) Referral ID Status Reason Start Date Expiration Date Visits Re quested Visits Authorized [id number] Closed 07/03/2022 08/02/2023 1 1 C IRON WORKER Encounter Details Date Type Department Care Team (Latest Contact Info) Description 07/03/2022 2:50 PM C IRON WORKER Office Visit [facility] Endocrinology Metabolism and Lipid [address] [facility] [address] [place] [address] [place] [address] Merna Bell MD [address] [facility] [address] [place] [address] Type 2 diabetes mellitus with moderate nonproliferative [...] on file Legal Sex Female 3:59 AM C IRON WORKER Gender Identity Female 05/13/2021 4:21 PM C IRON WORKER Sexual Orientation Not on file documented as of this encounter Last Filed Vital Signs Vital Sign Reading Time Taken Comments Blood Pressure 121/69 07/03/2022 2:12 PM C IRON WORKER Pulse 69 07/03/2022 2:12 PM C IRON WORKER Temperature 36.7 ??C (98 ??F) 07/03/2022 2:12 PM C IRON WORKER Respiratory Rate - - Oxygen Saturation - - Inhaled Oxygen Concentration - - Weight 91.4 kg (201 lb 9.6 oz) 07/03/2022 2:12 P M C IRON WORKER Height 152.4 cm (5') 07/03/2022 2:12 PM C IRON WORKER Body Mass Index 39.37 07/03/2022 2:12 PM C IRON WORKER documented in this encounter Progress Notes * [...] labs, imaging, and diagnostics independently reviewed in [facility] and commented on below. Allergies: Pseudoephedrine [...] Assessment & Plan Type 2 diabetes mellitus ([facility]) Glucoses are excellent , A1c 5.4% - [...] Merna Bell MD at 07/04/2022 5:02 PM C IRON WORKER C IRON WORKER C IRON WORKER Associated attestation - Merna Bell MD - 07/04/2022 5:02 PM C IRON WORKER I have seen and examined the patient. [...] Priority Date/Time Associated Diagnosis Comments POCT GLUCOSE 18948 Routine 07/03/2022 2:13 PM C IRON WORKER Type 2 diabetes mellitus with moderate nonproliferative [...] Bone mineral density was performed on a HoloBI[employer]AFE Discovery Densitometer. ?? Based on machine cross-calibration [...] by the International Society of Clinical Densitometry. [id number] us Merna Bell MD IMG DXA PROCEDURES Final Resu lt * (ABNORMAL) POCT glucose (07/03/2022 2:13 PM C IRON WORKER) Glucose Blood, POC 87 mg/dL Blood 07/03/2022 2:13 PM C IRON WORKER Merna Bell MD POINT OF CARE TEST [...] (natural) documented in this encounter Care Teams Tube Making Machine Operator Relationship Specialty Start Date End Date Elpidio Serrato MD PCP - General Internal Medicine 06/09/18 documented as of this encounter
--- OUTSIDE RECORDS SUMMARY | 2024-05-20 07:56 | XMS_ITS | Encounter Summary ---
Author Organization [facility] Address [address] [place] [address] Phone Care Team Providers Care Liability Analyst Name Role Phone Elpidio Serrato MD Primary Care Provider [phone] Reason for Visit * Diagnostic Imaging (Routine) - Closed Specialty Diagnoses / Procedures Referred By Constantino alvarado Referred To Contact Diagnoses Primary open angle glaucoma (POAG) of both eyes, moderate stage Procedures Forrest Visual Field - OU - Both Eyes Makayla Ramos MD [address] [place] [address] Phone: tel: fax: [facility] (All Locations) Referral ID Status Reason Start Date Expiration Date Visits Re quested Visits Authorized [id number] Closed 05/16/2022 06/15/2023 1 1 Encounter Details Date Type Department Care Team (Late st Contact Info) Description 02/11/2023 9:00 AM CDT Imaging Exam [facility] Ophthalmology [address] [facility] 6th [place] [id number] Primary open angle glaucoma (POAG) of both [...] on file Legal Sex Female 3:59 AM BLISS PRESS OPERATOR Gender Identity Female 05/13/2021 4:21 PM BLISS PRESS OPERATOR Sexual Orientation Not on file [...] stage documented in this encounter Care Teams Liability Analyst Relationship Specialty Start Date End Date Elpidio Serrato MD PCP - General Internal Medicine 06/09/18 documented as of this encounter
--- OUTSIDE RECORDS SUMMARY | 2024-05-20 07:56 | XMS_ITS | Encounter Summary ---
Author Organization [facility] Address [address] [place] [address] Phone Care Team Providers Care Lecturer In Marketing Name Role Phone Elpidio Serrato MD Primary Care Provider [phone] Reason for Visit * Reason Comments Post-op Encounter Details Date Type Department Care Team (Late st Contact Info) Description 06/15/2022 8:15 AM TOOTH CLERK Office Visit [facility] Ophthalmology [address] [place] [address] Makayla Ramos MD [address] [place] [address] Primary open angle glaucoma (POAG) [...] on file Legal Sex Female 3:59 AM TOOTH CLERK Gender Identity Female 05/13/2021 4:21 PM TOOTH CLERK Sexual Orientation Not on file documented [...] agree with the findings/plan of the Resident/Fellow H CLERK documented in this encounter Miscellaneous Notes * Assessment & Plan Note - Vincent Gamboa MD - 06/15/2022 8:24 AM TOOTH CLERK Associated Problem(s): Primary open angle glaucoma (POAG) [...] Followup 1 week or sooner for concerns. H CLERK H CLERK documented in this encounter Plan of [...] 0.85 0.85-9 Macula Normal Normal Care Teams Lecturer In Marketing Relationship Specialty Start Date End Date Elpidio Serrato MD PCP - General Internal Medicine 06/09/18 documented as of this encounter
--- OUTSIDE RECORDS SUMMARY | 2024-05-20 07:56 | XMS_ITS | Encounter Summary ---
Author Organization [facility] Address [address] [place] [address] Phone Care Team Providers Care Collection Technician Name Role Phone Elpidio Serrato MD Primary Care Provider [phone] Reason for Referral * Diagnostic Imaging (Routine) - Pending Review Specialty Diagnoses / Procedures Referred By Contac t Referred To Contact Diagnoses Primary open angle glaucoma (POAG) of both eyes, moderate stage Procedures Forrest Visual Field - OU - Both Eyes Makayla Ramos MD [address] [place] [address] Phone: tel: fax: [facility] (All Locations) Referral ID Status Reason Start Date Expiration Date V isits Requested Visits Authorized [id number] Pending Review 07/31/2023 08/29/2024 1 1 * Diagnostic Imaging (Routine) - Pending Review Specialty Diagnoses / Procedures Referred By Contac t Referred To Contact Diagnoses Primary open angle glaucoma (POAG) of both eyes, moderate stage Procedures OCT, Optic Nerve - OU - Both Eyes Makayla Ramos MD [address] [place] [address] Phone: tel: fax: [facility] (All Locations) Referral ID Status Reason Start Date Expiration Date V isits Requested Visits Authorized [id number] Pending Review 07/31/2023 08/29/2024 1 1 Encounter Details Date Type Department Care Team (Late st Contact Info) Description 07/31/2023 Orders Only [facility] Ophthalmology [address] [facility] [place] [address] Makayla Ramos MD [address] [place] [address] Primary open angle glaucoma (POAG) of both [...] on file Legal Sex Female 3:59 AM STEVEDORING SUPERINTENDENT Gender Identity Female 05/13/2021 4:21 PM STEVEDORING SUPERINTENDENT Sexual Orientation Not on file documented [...] Primary documented in this encounter Care Teams Collection Technician Relationship Specialty Start Date End Date Elpidio Serrato MD PCP - General Internal Medicine 06/09/18 documented as of this encounter
--- OUTSIDE RECORDS SUMMARY | 2024-05-20 07:56 | XMS_ITS | Encounter Summary ---
Author Organization [facility] Address [address] [place] [address] Phone Care Team Providers Care Home Economist Name Role Phone Elpidio Serrato MD Primary Care Provider [phone] Reason for Visit * Diagnostic Imaging (Routine) - Closed Specialty Diagnoses / Procedures Referred By Constantino alvarado Referred To Contact Diagnoses Primary open angle glaucoma (POAG) of both eyes, moderate stage Procedures OCT, Optic Nerve - OU - Both Eyes Makayla Ramos MD [address] [place] [address] Phone: tel: fax: [facility] (All Locations) Referral ID Status Reason Start Date Expiration Date Visits Re quested Visits Authorized [id number] Closed 10/18/2022 11/17/2023 1 1 Encounter Details Date Type Department Care Team (Late st Contact Info) Description 02/11/2023 9:20 AM CDT Imaging Exam [facility] Ophthalmology [address] [facility] 6th [place] [address] Primary open angle glaucoma (POAG) of both [...] file Legal Sex Female 3:59 AM HAND FLATWORK FINISHER Gender Identity Female 05/13/2021 4:21 PM HAND FLATWORK FINISHER Sexual Orientation Not on file documented [...] 73 micrometers. Notes Improved from prior us Makalya Ramos MD OPHTH TOMOGRAPHY Final Result documented in this encounter Visit Diagnoses Diagnosis Primary open angle glaucoma (POAG) of both eyes, moderate stage documented in this encounter Care Teams Home Economist Relationship Specialty Start Date End Date Elpidio Serrato MD PCP - General Internal Medicine 06/09/18 documented as of this encounter
--- OUTSIDE RECORDS SUMMARY | 2024-05-20 07:56 | XMS_ITS | Encounter Summary ---
Author Organization [facility] Address [address] [place] [address] Care Team Providers Care Tosser Name Role Phone Elpidio Serrato MD Primary Care Provider Reason for Visit * Auth/Cert Specialty Diagnoses / Procedures Referred By Contac t Referred To Contact Diagnoses Primary open angle glaucoma (POAG) of both eyes, moderate stage Nuclear sclerotic cataract of left eye Primary open angle glaucoma (POAG) of both eyes, moderate stage [H40.1132] Nuclear sclerotic cataract of left eye [H25.12] Procedures OH XCAPSL CTRC RMVL INSJ IO LENS PROSTH W/O ECP OH GONIOTOMY OH XCAPSL CTRC RMVL INSJ IO LENS PROSTH CPLX WO ECP EXTRACTION CATARACT - PHACOEMULSIFICATION AND LENS IMPLANT GONIOTOMY Referral ID Status Reason Start Date Expiration Date Visits Re quested Visits Authorized [id number] 1 1 Encounter Details Date Type Department Care Team (Latest Contact Info) Description 08/16/2022 6:50 AM CDT - 08/16/2022 10:05 AM CDT Hospital Encounter [facility] Operating [facility] [address] [place] [address] Makayla Ramos MD [facility] [place] [address] Discharge Disposition: Discharge to home or self [...] on file Legal Sex Female 3:59 AM UTILIZATION ENGINEER Gender Identity Female 05/13/2021 4:21 PM UTILIZATION ENGINEER Sexual Orientation Not on file documented [...] your vision Whom to call with concerns: [phone] - [facility] or [phone] - [facility] If after hours, listen to the voicemail for instructions for contacting the Eye Doctor telephone interceptor operator. Thank you for entrusting us with your [...] Preoperative Evaluation Record Evaluation type/location: TPAP from [facility] Planned procedure site: [facility] CAM OR (Pod 4) Date: 08/03/22 [...] Cardiovascular Pertinent negatives: hypertension ; CAD ; AK ; CABG ; valvular heart disease; atrial [...] provided by telephone and electronically sent via [employer]. Patient verbalized understanding of preoperative plan. Blood bank needs for day of procedure: No type and screen needed Pending labs/tests include: POC Glucose The patient is on aspirin therapy for primary prevention. The bleeding risk for the planned procedure is insignificant and therefore aspirin can be continued throughout the periprocedural period. Please call the CPAP chart room clinician ([phone]) with any questions. TPAP complete Preoperative evaluation [...] Diabetes mellitus (HCC) ??? Diabetic retinopathy (CMS/HCC) ([facility]) ??? Glaucoma ??? Multiparity History Of ___ Previous Pregnancies - 7 pregnancies, 2 children - C-sections. (Added by [facility]) ??? Nonproliferative diabetic retinopathy (CMS/HCC) ([facility]) 11/03/2009 ??? Personal history of other specified conditions History of chest pain - Stress test negative on 08/01/06 (Added by TW Conv) Past Surgical History: Procedure Laterality Date ??? CATARACT EXTRACTION Right 06/14/2022 CE/IOL + goniotomy ??? OH APPENDECTOMY unkown dates per pt ??? OH DELIVERY ONLY Section - in 1972 and 1975 (Added by TW Conv) ??? OH TENDON SHEATH INCISION Hand Incision Tendon [...] taking differently: Take 88 mcg by mouth visual c developer before breakfast metFORMIN (GLUCOPHAGE) 500 mg tablet [...] Other Thyroid Disorder - mother (Added by [employer] Conv) ??? Diabetes type II Other Type [...] Miscellaneous Notes * Op Note - Makayla Raoms MD - 08/16/2022 9:00 AM CDT DATE: 08/16/2022 PREOPERATIVE DIAGNOSIS: 1) Primary open angle glaucoma left eye. 2) Visually significant nuclear sclerotic cataract of left eye. POSTOPERATIVE DIAGNOSIS: same OPERATION PERFORMED: Phacoemulsification with intraocular lens implant and ab interno goniotomy left eye. SURGEON: Makayla Ramos MD TAPE DUPLICATOR: Swapna Head MD Implants: Implant Name Type Inv. Item Serial No. Project Account Manager Lot No. LRB No. Used Action [employer] LENS IOL POSTERIOR BICONVEX OPTIC SINGLE PIECE ENVISTA 6.0X12.5 +18.0D HYDROPHOBIC ACRYLIC [id number] - [id number] - [id number] Lens [employer] Lens Iol Posterior Biconvex Optic Single Piece Envista 6.0x12.5 +18.0d Hydrophobic Acrylic [id number] [employer] [id number] Left 1 Implanted ANESTHESIA: MAC with Local [...] Preoperative Assessment and Planning CPAP Clinic Location: [facility] The night before your surgery: * Do [...] (Patient takingdifferently: Take 88 mcg by mouth visual c developer before breakfast) 90 tablet 3 metFORMIN (GLUCOPHAGE) [...] Single Piece Envista 6.0x12.5 +18.0d Hydrophobic Acrylic [id number] - [id number] - [id number] - Implanted (Right) Lens Inventory item: [employer] Lens Iol Posterior Biconvex Optic Single Piece Envista 6.0x12.5 +18.0d Hydrophobic Acrylic [id number] Model/Cat number: [id number] Serial number: [id number] Project Account Manager: [employer] Device identifier: [id number] Device identifier type: GS1 As of 06/14/2022 [...] provided Information Provided on Healthcare Directives: Yes Communication/Pin Machine Tender Needs Communication Needs: Glasses Does caregiver's language differ from patient's?: No Assistive Devices/DME: Eyeglasses Discharge Planning Type of Residence: Private residence Living Arrangements: Family members Support Systems: Family members Assistance Needed: Daughter to provide discharge transportation Patient expects to be discharged to:: Private residence SPRING FORMER MACHINE NO ADDITIONAL COMMENTS/ FOLLOW UP * Pre-Procedure [...] remove nail coverings, artificial nails and nail citizen of [place] prior to the day of surgery. You should leave your valuables and any jewelry at home. No metal or piercings are allowed in the operating room. You should bring your insurance card, a photo ID (example: Range Scientist's License) and a method of payment for [...] Remove nail coverings, artificial nails and nail citizen of [place]. Place clean linens on your bed the [...] questions, please call the CPAP Staff at [phone], Saturday-Saturday 8am-4:30pm. All patients should read the below section: All visitors/patients are being asked to wear a clean face mask when entering the hospital. COVID 19 Updates & Visitor Policy: Please access [email or web address] for the most updated information. Information on [facility]: Please view [email or web address] (Patient & Visitor Information) for additional details regarding Advanced Directive forms, AWARE, directions, parking information, lodging, Internet access, dining and more. Information on [facility] or [facility] ([facility]): Please view [email or web address] (Patient and Visitor Information) for parking/directions and more. For MyChart information, to activate account or password recovery, please go to [email or web address] or call [phone] (toll-free: [phone]). Information for Suicide Prevention: National Suicide Prevention Lifeline (7-862- 946-HVWU (2955)). Surgery Times: For patients having surgery @ [facility], [facility] or [facility] ([facility]), if your surgeon's office has not notified you of your surgery time by NOON THE BUSINESS DAY BEFORE your surgery, please call [phone] and ask for your surgeon's office . [...] Glucose, POC 75 70 - 199 mg/dL [facility] Blood 08/16/2022 9:14 AM CDT 08/16/2022 9:14 AM CDT Makayla Ramos MD LAB POCT ORDERABLES - DEVICE Final Result Performing Organization Address [facility] Co de Phone Number [facility] [place] [address] * POCT glucose (08/16/2022 8:07 AM CDT) Glucose, POC 82 70 - 199 mg/dL [facility] Blood 08/16/2022 8:07 AM CDT 08/16/2022 8:07 AM CDT Makayla Ramos MD LAB POCT ORDERABLES - DEVICE Final Result Performing Organization Address City/[facility] Co de Phone Number [facility] [place] [address] documented in this encounter Visit Diagnoses Diagnosis [...] 500 mL) (CANCELED) As needed, Starting on Dimla 08/16/22 at 0850, Intra-Op 0850 (Given - [...] 08/16/2022 documented in this encounter Care Teams Tosser Relationship Specialty Start Date End Date Elpidio Serrato MD PCP - General Internal Medicine 06/09/18 documented as of this encounter
--- OUTSIDE RECORDS SUMMARY | 2024-05-20 07:57 | XMS_ITS | Encounter Summary ---
Author Organization [facility] Address [address] [place] [address] Phone Care Team Providers Care Generating Plant Superintendent Name Role Phone Elpidio Serrato MD Primary Care Provider [phone] Encounter Details Date Type Department Care Team (Late st Contact Info) Description 01/02/2022 Telephone [facility] Endocrinology Metabolism and Lipid [address] [facility] 5th [place] [address] [place] [address] Jose Antonio Chang EMT Social History Tobacco Use Types Packs/Day Years Used Date Smoking Tobacco: Never Smokeless Tobacco: Never Comments Unknown Sex and Gender Information Value Date Recorded Sex Assigned at Not on file Legal Sex Female 3:59 AM MANUSCRIPTS CURATOR Gender Identity Female 05/13/2021 4:21 PM MANUSCRIPTS CURATOR Sexual Orientation Not on file documented as of this encounter Miscellaneous Notes * Telephone Encounter - Jose Antonio Chang EMT - 01/02/2022 10:59 AM CDT CMN SENT documented in this encounter Plan of Treatment Not on file documented as of this encounter Visit Diagnoses Not on filedocumented in this encounter Care Teams Generating Plant Superintendent Relationship Specialty Start Date End Date Elpidio Serrato MD PCP - General Internal Medicine 06/09/18 documented as of this encounter
--- OUTSIDE RECORDS SUMMARY | 2024-05-20 07:57 | XMS_ITS | Encounter Summary ---
Author Organization [facility] Address [address] [place] [address] Phone Care Team Providers Care Patient Service Specialist Name Role Phone Elpidio Serrato MD Primary Care Provider [phone] Reason for Visit * Reason Onset Date Comments orders 11/01/2020 [facility] Encounter Details Date Type Department Care Team (Late st Contact Info) Description 11/01/[address] [facility] Endocrinology Metabolism and Lipid [address] [facility] 13th [place] [address] [place] [address] Princess Hu RMA orders ([facility]) Social History Tobacco Use Types Packs/Day Years Used Date Smoking Tobacco: Never Smokeless Tobacco: Never Comments Unknown Sex and Gender Information Value Date Recorded Sex Assigned at Not on file Legal Sex Female 3:59 AM DIRECTOR OF CORPORATE SPONSORSHIPS Gender Identity Female 05/13/2021 4:21 PM DIRECTOR OF CORPORATE SPONSORSHIPS Sexual Orientation Not on file documented as of this encounter Miscellaneous Notes * Telephone Encounter - Princess Hu RMA - 11/01/2020 8:08 AM CDT Images from the original note were not included. Faxed orders to [facility] documented in this encounter Plan of Treatment Not on file documented as of this encounter Visit Diagnoses Not on filedocumented in this encounter Care Teams Patient Service Specialist Relationship Specialty Start Date End Date Elpidio Serrato MD PCP - General Internal Medicine 06/09/18 documented as of this encounter
--- OUTSIDE RECORDS SUMMARY | 2024-05-20 07:57 | XMS_ITS | Encounter Summary ---
Author Organization [facility] Address [address] [place] [address] Phone Care Team Providers Care Ship Scaler Name Role Phone Elpidio Serrato MD Primary Care Provider [phone] Encounter Details Date Type Department Care Team (Late st Contact Info) Description 02/19/2022 Telephone [facility] Ophthalmology [address] [place] [address] Makayla Ramos MD [address] [place], [place] [id number] Social History Tobacco Use Types Packs/Day Years Used Date Smoking Tobacco: Never Smokeless Tobacco: Never Comments Unknown Sex and Gender Information Value Date Recorded Sex Assigned at Not on file Legal Sex Female 3:59 AM BESSEMER BOTTOM MAKER Gender Identity Female 05/13/2021 4:21 PM BESSEMER BOTTOM MAKER Sexual Orientation Not on file documented [...] on filedocumented in this encounter Care Teams Ship Scaler Relationship Specialty Start Date End Date Elpidio Serrato MD PCP - General Internal Medicine 06/09/18 documented as of this encounter
--- OUTSIDE RECORDS SUMMARY | 2024-05-20 07:57 | XMS_ITS | Encounter Summary ---
Author Organization [facility] Address [address] [place] [address] Phone Care Team Providers Care Podiatric Physician Name Role Phone Elpidio Serrato MD Primary Care Provider [phone] Encounter Details Date Type Department Care Team (Late st Contact Info) Description 02/16/2022 Telephone [facility] Ophthalmology [address] [place] [address] Makayla Ramos MD [address] [place], [place] [address] Social History Tobacco Use Types Packs/Day Years Used Date Smoking Tobacco: Never Smokeless Tobacco: Never Comments Unknown Sex and Gender Information Value Date Recorded Sex Assigned at Not on file Legal Sex Female 3:59 AM PULPER OPERATOR Gender Identity Female 05/13/2021 4:21 PM PULPER OPERATOR Sexual Orientation Not on file documented [...] on filedocumented in this encounter Care Teams Podiatric Physician Relationship Specialty Start Date End Date Elpidio Serrato MD PCP - General Internal Medicine 06/09/18 documented as of this encounter
--- OUTSIDE RECORDS SUMMARY | 2024-05-20 07:57 | XMS_ITS | Encounter Summary ---
Author Organization [facility] Address [address] [place] [address] Phone Care Team Providers Care Punch Press Setter Name Role Phone Elpidio Serrato MD Primary Care Provider [phone] Encounter Details Date Type Department Care Team (Late st Contact Info) Description 02/21/2021 Telephone [facility] Scheduling [address] [place] [address] Merna Bell MD [address] [facility] [place] [facility] [address] [place] [address] Social History Tobacco Use Types Packs/Day Years Used Date Smoking Tobacco: Never Smokeless Tobacco: Never Comments Unknown Sex and Gender Information Value Date Recorded Sex Assigned at Not on file Legal Sex Female 3:59 AM VISUAL DESIGNER Gender Identity Female 05/13/2021 4:21 PM VISUAL DESIGNER Sexual Orientation Not on file documented as of this encounter Miscellaneous Notes * Telephone Encounter - Mitzi Deleon COA - 02/21/2021 1:14 PM CDT Images from the original note were not included. Arthur: [id number] CeleBREX 200MG capsules Status:Approved FEP PA Effecrtive Dates:01/22/21 to 02/21/22 documented in this encounter Plan of Treatment Not on file documented as of this encounter Visit Diagnoses Not on filedocumented in this encounter Care Teams Punch Press Setter Relationship Specialty Start Date End Date Elpidio Serrato MD PCP - General Internal Medicine 06/09/18 documented as of this encounter
--- OUTSIDE RECORDS SUMMARY | 2024-05-20 07:57 | XMS_ITS | Encounter Summary ---
Author Organization [facility] Healthcare Address [address] [place] [address] Care Team Providers Care Fender Mechanic Apprentice Name Role Phone Elpidio Serrato MD Primary Care Provider [phone] Reason for Visit * Auth/Cert Specialty Diagnoses [...] Expiration Date Visits Re quested Visits Authorized [id number] 1 1 Encounter Details Date Type Department Care Team (Latest Contact Info) Description 06/14/2022 7:55 AM PAID SEARCH MARKETING ANALYST - 06/14/2022 10:54 AM [facility] Hospital Encounter [facility] Operating [facility] [address] [place] [address] Makayla Ramos MD [facility] [place] [address] Discharge Disposition: Discharge to home or self [...] on file Legal Sex Female 3:59 AM PAID SEARCH MARKETING ANALYST Gender Identity Female 05/13/2021 4:21 PM PAID SEARCH MARKETING ANALYST Sexual Orientation Not on file documented as of this encounter Last Filed Vital Signs Vital Sign Reading Time Taken Comments Blood Pressure 115/43 06/14/2022 10:40 AM PAID SEARCH MARKETING ANALYST Pulse 72 06/14/2022 10:40 AM PAID SEARCH MARKETING ANALYST Temperature 36 ??C (96.8 ??F) 06/14/2022 9:40 AM PAID SEARCH MARKETING ANALYST Respiratory Rate 18 06/14/2022 10:40 AM PAID SEARCH MARKETING ANALYST Oxygen Saturation 96% 06/14/2022 10:40 AM PAID SEARCH MARKETING ANALYST Inhaled Oxygen Concentration - - Weight 99.8 kg (220 lb) 05/30/2022 1:55 PM PAID SEARCH MARKETING ANALYST Height 152.4 cm (5') 05/30/2022 1:55 PM PAID SEARCH MARKETING ANALYST Body Mass Index 42.97 05/30/2022 1:55 PM PAID SEARCH MARKETING ANALYST documented in this encounter Discharge Instructions * Discharge Instructions* Makayla Ramos MD - 06/14/2022 9:38 AM PAID SEARCH MARKETING ANALYST Eye Surgery Post-Op Instructions Your surgeon???s name: [...] your vision Whom to call with concerns: [phone] - [facility] or [phone] - [facility] If after hours, listen to the voicemail for instructions for contacting the Eye Doctor application packager. Thank you for entrusting us with your eye care. SEARCH MARKETING ANALYST * Attachments The following attachments cannot be sent through Care Everywhere. * [facility] PATHWAY TO EXCELLENT CARE AFTER SURGERY [...] - right eye GONIOTOMY - right eye SEARCH MARKETING ANALYST Source Note - Griselda Bang NP - 05/31/2022 8:25 AM PAID SEARCH MARKETING ANALYST Images from the original note were not included. [facility] Preoperative Evaluation Record Evaluation type/location: TPAP from [facility] Planned procedure site: [facility] OR (Pod 4) Date: 05/31/22 [...] Cardiovascular Pertinent negatives: hypertension ; CAD ; ND ; CABG ; valvular heart disease; atrial [...] provided by telephone and electronically sent via [employer]. Patient verbalized understanding of preoperative plan. Blood bank needs for day of procedure: No type and screen needed Pending labs/tests include: POC Glucose The patient is on aspirin therapy for primary prevention. The bleeding risk for the planned procedure is insignificant and therefore aspirin can be continued throughout the periprocedural period. Please call the CPAP chart room clinician ([phone]) with any questions. TPAP complete Preoperative evaluation [...] Take 88 mcg by mouth early childhood before breakfast metFORMIN (GLUCOPHAGE) 500 mg tablet [...] last 720 hours. Kathrin index score: 100 SEARCH MARKETING ANALYST documented in this encounter Miscellaneous Notes * Op Note - Makayla Ramos MD - 06/14/2022 9:24 AM CST DATE: 06/14/2022 PREOPERATIVE DIAGNOSIS: 1) Primary open angle glaucoma right eye. 2) Visually significant nuclear sclerotic cataract of right eye. POSTOPERATIVE DIAGNOSIS: same OPERATION PERFORMED: Phacoemulsification with intraocular lens implant and ab interno goniotomy right eye. SURGEON: Makayla Ramos MD MEDICAL SERVICES COORDINATOR: none Implants: Implant Name Type Inv. Item Serial No. Color Coater Lot No. [id number] No. Used Action [employer] LENS IOL POSTERIOR BICONVEX OPTIC SINGLE PIECE ENVISTA 6.0X12.5 +18.0D HYDROPHOBIC ACRYLIC [id number] - [id number] - [id number] Lens [employer] Lens Iol PosteriorBiconvex Optic Single Piece Envista 6.0x12.5 +18.0d Hydrophobic Acrylic [id number] [employer] Right 1 Implanted ANESTHESIA: MAC with [...] None CONDITION ON DISCHARGE FROM OPERATING ROOM:stable SEARCH MARKETING ANALYST * Perioperative Nursing Note - Fabi Mathews RN - 06/14/2022 9:18 AM PAID SEARCH MARKETING ANALYST Intraocular lens implant ordered and verified per surgeon prior to implantation SEARCH MARKETING ANALYST * Pre-Procedure Instructions - Griselda Bang NP - 05/31/2022 8:20 AM CST [facility] CPAP Clinic Location: [facility] The night before your surgery: * Do [...] going to be admitted after surgery at [facility], COVID testing may be performed on the day of surgery, even if you are up to date on your COVID-19 vaccine. * If having surgery at [facility], you may want to bring a credit card if you want to use our Mobile Pharmacy for your discharge medications. Mobile pharmacy is not available at [facility], the [facility], or the [place] for [facility]. Outpatient Surgery: * You must [...] with COVID-19. You test positive for COVID-19. SEARCH MARKETING ANALYST * Perioperative Nursing Note - Katie Nicolas RN - 05/30/2022 2:00 PM PAID SEARCH MARKETING ANALYST [facility] Preoperative Assessment and Planning Perioperative Nursing Note Telephone Preoperative Evaluation ([facility]) - TELEPHONE ONLY, NO PHYSICAL EXAM [...] Take 88 mcg by mouth early childhood before breakfast) 90 tablet 3 metFORMIN (GLUCOPHAGE) [...] Family members Assistance Needed: pt will have oil transport driver day of surgery Patient expects to be discharged to:: Private residence TRACTOR DISTRIBUTOR NO ADDITIONAL COMMENTS/ FOLLOW UP SEARCH MARKETING ANALYST * Pre-Procedure Instructions - Katie Nicolas RN - 05/30/2022 1:57 PM PAID SEARCH MARKETING ANALYST [facility] PRE[facility] (CPAP) [...] your insurance card, a photo ID (example: Fuel Oil Clerk's License) and a method of payment for [...] questions, please call the CPAP Staff at [phone], Saturday-Saturday 8am-4:30pm. All patients should read the below section: All visitors/patients are being asked to wear a clean face mask when entering the hospital. COVID 19 Updates & Visitor Policy: Please access [email or web address] for the most updated information. Information on [facility]: Please view [email or web address] (Patient & Visitor Information) for additional details regarding Advanced Directive forms, AWARE, directions, parking information, lodging, Internet access, dining and more. Information on [facility] or [facility] [place] ([facility]): Please view [email or web address] (Patient and Visitor Information) for parking/directions and more. For MyChart information, to activate account or password recovery, please go to [email or web address] or call [phone] (toll-free: [phone]). Information for Suicide Prevention: National Suicide Prevention Lifeline (2-582- 839-SHUC (7803)). Surgery Times: For patients having surgery @ [facility], [facility] or [facility] [place] ([facility]), if your surgeon's office has not notified you of your surgery time by NOON THE BUSINESS DAY BEFORE your surgery, please call [phone] and ask for your surgeon's office Dr Ramos. For patients having [facility] @ [facility], if your surgeon's office has not notified you of your surgery time by NOON THE BUSINESS DAY BEFORE your surgery, please call the surgery center [phone]. SEARCH MARKETING ANALYST documented in this encounter Plan of Treatment Not on file documented as of this encounter Procedures Procedure Name Priority Date/Time Associated Diagnosis Comments POCT GLUCOSE DEVICE Routine 06/14/2022 9 :46 AM PAID SEARCH MARKETING ANALYST GONIOTOMY 06/14/2022 9:16 AM PAID SEARCH MARKETING ANALYST Nuclear sclerotic cataract of both eyes Primary open angle glaucoma of both eyes, moderate stage EXTRACTION CATARACT - PHACOEMULSIFICATION AND LENS IMPLANT 06/14/2022 9:16 AM PAID SEARCH MARKETING ANALYST Nuclear sclerotic cataract of both eyes Primary open angle glaucoma of both eyes, moderate stage POCT GLUCOSE DEVICE Routine 06/14/2022 9 :01 AM PAID SEARCH MARKETING ANALYST documented in this encounter Results * POCT glucose (06/14/2022 9:46 AM PAID SEARCH MARKETING ANALYST) Glucose, POC 86 70 - 199 mg/dL [facility] Blood 06/14/2022 9:46 AM PAID SEARCH MARKETING ANALYST 06/14/2022 9:46 AM PAID SEARCH MARKETING ANALYST Makayla Ramos MD LAB POCT ORDERABLES - DEVICE Final Result Performing Organization Address [facility]/ZIP Co de Phone Number [facility] [place] [address] * POCT glucose (06/14/2022 9:01 AM PAID SEARCH MARKETING ANALYST) Glucose, POC 84 70 - 199 mg/dL [facility] Blood 06/14/2022 9:01 AM PAID SEARCH MARKETING ANALYST 06/14/2022 9:01 AM PAID SEARCH MARKETING ANALYST Makayla Ramos MD LAB POCT ORDERABLES - DEVICE Final Result Performing Organization Address City/[facility]/ZIP Co de Phone Number [facility] [place] [address] documented in this encounter Visit Diagnoses Diagnosis [...] During Ocular Surgery Given 06/14/2022 9:03 AM PAID SEARCH MARKETING ANALYST 0.3 mL Given 06/14/2022 8:48 AM PAID SEARCH MARKETING ANALYST 0.3 mL Lactated Ringer's (LR) infusion 30 mL/hr, intravenous, Continuous, Starting on Dilma 06/14/22 at 0900, Pre-Op Rate/Dose Verify 06/14/2022 9:17 AM PAID SEARCH MARKETING ANALYST 30 m L/hr New Bag 06/14/2022 8:48 AM PAID SEARCH MARKETING ANALYST 30 mL/hr 30 mL/hr prochlorperazine (COMPAZINE) injection 5 mg 5 mg, intravenous, Administer over 2 Minutes, Once as needed, nausea, vomiting, Starting on Dilma 06/14/22 at 0946, For 1 dose, Phase I, If nausea/vomiting not relieved by ondansetron within 30 minutes or if ondansetron has been given within the last 6 hours. Given 06/14/2022 9:50 AM PAID SEARCH MARKETING ANALYST 5 mg documented in this encounter Discontinued [...] Recently Administered Medications Times are shown in PAID SEARCH MARKETING ANALYST. Scheduled Medication Order 06/12/2022 06/13/2022 06/14/2022 dilating [...] 06/14/2022 documented in this encounter Care Teams Fender Mechanic Apprentice Relationship Specialty Start Date End Date Elpidio Serrato MD PCP - General Internal Medicine 06/09/18 documented as of this encounter
--- OUTSIDE RECORDS SUMMARY | 2024-05-20 07:57 | XMS_ITS | Encounter Summary ---
Author Organization [facility] Address [address] [place] [address] Phone Care Team Providers Care Electronics Engineer Name Role Phone Elpidio Serrato MD Primary Care Provider [phone] Reason for Referral * Diagnostic Imaging (Routine) - Closed Specialty Diagnoses / Procedures Referred By Constantino alvarado Referred To Contact Diagnoses Primary open angle glaucoma (POAG) of both eyes, moderate stage Procedures Forrest Visual Field - OU - Both Eyes Makayla Ramos MD [address] [address] Phone: tel: fax: [facility] (All Locations) Referral ID Status Reason Start Date Expiration Date Visits Re quested Visits Authorized [id number] Closed 02/19/2022 03/21/2023 1 1 Encounter Details Date Type Department Care Team (Late st Contact Info) Description 02/19/2022 Orders Only [facility] Ophthalmology [address] [facility] [address] [place] [address] Makayla Ramos MD [address] [place] [address] Primary open angle glaucoma (POAG) of both eyes, moderate stage (Primary Dx) Social History Tobacco Use Types Packs/Day Years Used Date Smoking Tobacco: Never Smokeless Tobacco: Never Comments Unknown Sex and Gender Information Value Date Recorded Sex Assigned at Not on file Legal Sex Female 3:59 AM COTTON GRADER Gender Identity Female 05/13/2021 4:21 PM COTTON GRADER Sexual Orientation Not on file documented as of this encounter Plan of Treatment Not on file documented as of this encounter Procedures Procedure Name Priority Date/Time Associated Diagnosis Comments FORREST VISUAL FIELD - OU - BOTH EYES Routine 06/04/2022 9:00 AM COTTON GRADER Primary open angle glaucoma (POAG) of both eyes, moderate stage documented in this encounter Results * Forrest Visual Field - OU - Both Eyes (06/04/2022 9:00 AM COTTON GRADER) Pattern Deviation OS 3.86 dB CONTINUUM Pattern Deviation OD 8.62 dB CONTINUUM Mean Deviation OS -3.66 dB CONTINUUM Mean Deviation OD -6.37 dB CONTINUUM Anatomical Region Laterality Modality Head Other Narrative 06/05/2022 7:10 AM COTTON GRADER Right Eye Fixation was good. Cooperation was [...] Primary documented in this encounter Care Teams Electronics Engineer Relationship Specialty Start Date End Date Elpidio Serrato MD PCP - General Internal Medicine 06/09/18 documented as of this encounter
--- OUTSIDE RECORDS SUMMARY | 2024-05-20 07:57 | XMS_ITS | Encounter Summary ---
Author Organization [facility] Address [address] [place] [address] Phone Care Team Providers Care Draw In Hand Name Role Phone Elpidio Serrato MD Primary Care Provider [phone] Reason for Referral * Diagnostic Imaging (Routine) - Closed Specialty Diagnoses / Procedures Referred By Constantino avlarado Referred To Contact Diagnoses Nuclear sclerotic cataract of both eyes Acute angle-closure glaucoma, bilateral Procedures Forrest Visual Field - OU - Both Eyes Makayla Ramos MD [address] [place] [address] Phone: tel: fax: [facility] (All Locations) Referral ID Status Reason Start Date Expiration Date Visits Re quested Visits Authorized [id number] Closed 05/19/2021 06/18/2022 1 1 HER'S ASSISTANT * Diagnostic Imaging (Routine) - Closed Specialty Diagnoses / Procedures Referred By Constantino alvarado Referred To Contact Diagnoses Nuclear sclerotic cataract of both eyes Procedures IOL Biometry - OU - Both Eyes Makayla Ramos MD [address] [place] [address] Phone: tel: fax: [facility] (All Locations) Referral ID Status Reason Start Date Expiration Date Visits Re quested Visits Authorized [id number] Closed 05/19/2021 06/18/2022 1 1 HER'S ASSISTANT Encounter Details Date Type Department Care Team (Late st Contact Info) Description 05/19/2021 Orders Only [facility] Ophthalmology [address] [facility] [place] [address] Makayla Ramos MD [address] [place] [address] Primary open angle glaucoma (POAG) of both eyes, moderate stage (Primary Dx); Nuclear sclerotic cataract of both eyes; Acute angle-closure glaucoma, bilateral ; Acute angle-closure glaucoma, bilateral Social History Tobacco Use Types Packs/Day Years Used Date Smoking Tobacco: Never Smokeless Tobacco: Never Comments Unknown Sex and Gender Information Value Date Recorded Sex Assigned at Not on file Legal Sex Female 3:59 AM BUTCHER'S ASSISTANT Gender Identity Female 05/13/2021 4:21 PM BUTCHER'S ASSISTANT Sexual Orientation Not on file documented as of this encounter Plan of Treatment Not on file documented as of this encounter Procedures Procedure Name Priority Date/Time Associated Diagnosis Comments FORREST VISUAL FIELD - OU - BOTH EYES Routine 05/19/2021 4:26 PM BUTCHER'S ASSISTANT Nuclear sclerotic cataract of both eyes Acute angle-closure glaucoma, bilateral IOL BIOMETRY - OU - BOTH EYES Routine 05/19/2021 4:25 PM BUTCHER'S ASSISTANT Nuclear sclerotic cataract of both eyes documented in this encounter Results * Forrest Visual Field - OU - Both Eyes (05/19/2021 4:26 PM BUTCHER'S ASSISTANT) Anatomical Region Laterality Modality Head Visual Field Narrative 05/19/2021 4:26 PM BUTCHER'S ASSISTANT Right Eye Fixation was good. Cooperation was good. Reliability was good. Progression has worsened. Findings include superior nasal step defect. Left Eye Fixation was good. Cooperation was good. Reliability was good. Progression has worsened. Findings include superior arcuate defect. us Makayla Ramos MD OPHTH VISUAL FIELD Final Resu lt * IOL Biometry - OU - Both Eyes (05/19/2021 4:25 PM BUTCHER'S ASSISTANT) A LENGTH (OS) 24.49 A LENGTH (OD) 24.58 White to White (OS) 12.1 mm White to White (OD) 12.1 mm Anatomical Region Laterality Modality Head Other Narrative 05/19/2021 4:25 PM BUTCHER'S ASSISTANT Right Eye Axial length was 24.58. [...] glaucoma documented in this encounter Care Teams Draw In Hand Relationship Specialty Start Date End Date Elpidio Serrato MD PCP - General Internal Medicine 06/09/18 documented as of this encounter
--- OUTSIDE RECORDS SUMMARY | 2024-05-20 07:57 | XMS_ITS | Encounter Summary ---
Author Organization [facility] Address [address] [place] [address] Phone Care Team Providers Care Child Health Associate Name Role Phone Elpidio Serrato MD Primary Care Provider [phone] Encounter Details Date Type Department Care Team (Latest Contact Info) Description 10/31/2020 8:00 AM CDT Telemedicine [facility] Endocrinology Metabolism and Lipid [address] [facility] [place] [address] [place] [address] [place] [address] Merna Bell MD [address] [facility] [address] [place], [place] [id number] Mixed hyperlipidemia (Primary Dx); Hypertension, unspecified type; [...] on file Legal Sex Female 3:59 AM COAL INSPECTOR Gender Identity Female 05/13/2021 4:21 PM COAL INSPECTOR Sexual Orientation Not on file documented [...] located [place] state of [place]. The patient visit started at 0757 and [...] a telephone or video visit during the [address] explained to them. After being [...] some home measurements. Type 2 diabetes mellitus ([facility]) Glucoses are excellent and variability [...] (diabetes mellitus, type 2) ([facility]) Glucoses are excellent and variability [...] 25-OH 40 30 - 80 ng/mL [facility] Blood 01/13/2021 11:0 0 AM CDT 01/13/2021 11:35 AM CDT us Merna Bell MD LAB BLOOD ORDERABLES Final Re sult [facility] Department [place] [address] * (ABNORMAL) Renal function panel (01/13/2021 11:00 AM CDT) Pathologist [facility] Sodium 140 135 - 145 mmol/L [facility] Potassium, pl 4.7 3.3 - 4.9 mmol/L [facility] Chloride 108 97 - 110 mmol/L [facility] CO2 24 22 - 32 mmol/L [facility] Anion gap 8 2 - 15 mmol/L [facility] BUN 39(H) 8 - 25 mg/dL [facility] Creatinine 1.10 0.60 - 1.10 mg/dL [facility] Glucose 143 70 - 199 mg/dL [facility] [...] Calcium 9.6 8.5 - 10.3 mg/dL [facility] Phosphorus, pl 3.8 2.3 - 4.5 mg/dL [facility] Albumin 4.2 3.5 - 5.0 g/dL [facility] Blood 01/13/2021 11:0 0 AM CDT 01/13/2021 11:35 AM CDT Merna Bell MD LAB BLOOD ORDERABLES Final Re sult Performing Organization Address City/[facility] Co de Phone Number [facility] [place] [address] * (ABNORMAL) PTH (01/13/2021 11:00 AM CDT) PTH 69(H) 15 - 65 pg/mL [facility] Blood 01/13/2021 11:0 0 AM CDT 01/13/2021 11:35 AM CDT Merna Bell MD LAB BLOOD ORDERABLES Final Re sult Performing Organization Address [facility] de Phone Number [facility] [place] [address] * (ABNORMAL) Lipid panel (01/13/2021 11:00 AM CDT) Cholesterol 178 30 - 199 mg/dL [facility] [...] on 2017. Triglycerides 213(H) <=149 mg/dL [facility] Comment: Interpretive Data Ages [...] on 2017. HDL 44 >=40 mg/dL [facility] Comment: Interpretive Data Ages [...] 2017. LDL, calculated 91 <=129 mg/dL [facility] Comment: Interpretive Data Ages [...] on 2017. Non-HDL Cholesterol 134 mg/dL [facility] Comment: Interpretive Data Ages [...] last revised on 2017. Chol/HDL ratio 4 [facility] Blood 01/13/2021 11:0 0 AM CDT 01/13/2021 11:35 AM CDT us Merna Bell MD LAB BLOOD ORDERABLES Final Re sult [facility] [place] [address] * (ABNORMAL) Hemoglobin A1c (01/13/2021 11:00 AM CDT) Hgb A1C 7.2(H) 4.0 - 5.6 % [facility] Estimated Average Glucose 160 mg/dL [facility] Comment: The ADA recommends reporting an [...] MD LAB BLOOD ORDERABLES Final Re sult [facility] [place] [address] * TSH reflex to free T4 (01/13/2021 11:00 AM CDT) TSH 1.15 0.30 - 4.20 mcIUnit/mL [facility] Blood 01/13/2021 11:0 0 AM CDT 01/13/2021 11:35 AM CDT Merna Bell MD LAB BLOOD ORDERABLES Final Re sult Performing Organization Address [facility] de Phone Number [facility] [place] [address] documented in this encounter Visit Diagnoses Diagnosis [...] documented as of this encounter Care Teams Child Health Associate Relationship Specialty Start Date End Date Elpidio Serrato MD PCP - General Internal Medicine 06/09/18 documented as of this encounter
--- OUTSIDE RECORDS SUMMARY | 2024-05-20 07:57 | XMS_ITS | Encounter Summary ---
Author Organization [facility] Address [address] [place] [address] Phone Care Team Providers Care Skein Winding Operator Name Role Phone Elpidio Serrato MD Primary Care Provider [phone] Encounter Details Date Type Department Care Team (Late st Contact Info) Description 10/24/2020 8:00 AM CDT Office Visit [facility] Ophthalmology [address] [facility] [place] [address] Makayla Ramos MD [address] [place] [address] Nuclear sclerotic cataract of both eyes (Primary Dx); Primary open angle glaucoma (POAG) of both eyes, moderate stage Social History Tobacco Use Types Packs/Day Years Used Date Smoking Tobacco: Never Smokeless Tobacco: Never Comments Unknown Sex and Gender Information Value Date Recorded Sex Assigned at Not on file Legal Sex Female 3:59 AM CHARTING CLERK Gender Identity Female 05/13/2021 4:21 PM CHARTING CLERK Sexual Orientation Not on file documented [...] Normal Normal Periphery Normal Normal Care Teams Skein Winding Operator Relationship Specialty Start Date End Date Elpidio Serraot MD PCP - General Internal Medicine 06/09/18 documented as of this encounter
--- OUTSIDE RECORDS SUMMARY | 2024-05-20 07:57 | XMS_ITS | Encounter Summary ---
Author Organization [facility] Address [address] [place] [address] Phone Care Team Providers Care Cartographic Technician Name Role Phone Elpidio Serrato MD Primary Care Provider [phone] Encounter Details Date Type Department Care Team (Late st Contact Info) Description 05/19/2021 8:30 AM VOCATIONAL TECHNICAL EDUCATION TEACHER Office Visit [facility] Ophthalmology [address] [facility] [place] [phone] Makayla Ramos MD [address] [place] [address] Primary open angle glaucoma (POAG) of both eyes, moderate stage (Primary Dx); Nuclear sclerotic cataract of both eyes Social History Tobacco Use Types Packs/Day Years Used Date Smoking Tobacco: Never Smokeless Tobacco: Never Comments Unknown Sex and Gender Information Value Date Recorded Sex Assigned at Not on file Legal Sex Female 3:59 AM VOCATIONAL TECHNICAL EDUCATION TEACHER Gender Identity Female 05/13/2021 4:21 PM VOCATIONAL TECHNICAL EDUCATION TEACHER Sexual Orientation Not on file documented as of this encounter Patient Instructions * Patient Instructions* Makayla Ramos MD - 05/19/2021 8:30 AM VOCATIONAL TECHNICAL EDUCATION TEACHER TIONAL TECHNICAL EDUCATION TEACHER documented in this encounter Progress Notes [...] agree with the findings/plan of the Resident/Fellow TIONAL TECHNICAL EDUCATION TEACHER documented in this encounter Miscellaneous Notes * Assessment & Plan Note - Makayla Ramos MD - 05/19/2021 4:27 PM VOCATIONAL TECHNICAL EDUCATION TEACHER Associated Problem(s): Primary open angle glaucoma (POAG) of both eyes, moderate stage POAG OU 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 TIONAL TECHNICAL EDUCATION TEACHER documented in this encounter Plan of [...] 0.85 0.85-9 Macula Normal Normal Care Teams Cartographic Technician Relationship Specialty Start Date End Date Elpidio Serrato MD PCP - General Internal Medicine 06/09/18 documented as of this encounter
--- OUTSIDE RECORDS SUMMARY | 2024-05-20 07:57 | XMS_ITS | Encounter Summary ---
Author Organization [facility] Address [address] [place] [address] Care Team Providers Care Through Operator Name Role Phone Elpidio Serrato MD Primary Care Provider [phone] Encounter Details Date Type Department Care Team (Late st Contact Info) Description 01/13/2021 11:15 AM CDT Lab [facility] Advanced Medicine [facility] Advanced Medicine ([facility]) [address] [place] [phone] Merna Bell MD [address] [facility] [address], [place] [id number] Vitamin D deficiency; Type 2 diabetes mellitus [...] on file Legal Sex Female 3:59 AM FOSTER CARE WORKER Gender Identity Female 05/13/2021 4:21 PM FOSTER CARE WORKER Sexual Orientation Not on file documented [...] * (ABNORMAL) eGFR (01/13/2021 11:00 AM CDT) [facility] eGFR 50(L) 90 - 130 mL/min/1.7 3 m2 [facility] Comment: Interpretive Data Reference Interval Normal ?>/= [...] ORDERABLES Final Re sult Performing Organization Address City/[facility]/ZIP Co de Phone Number [facility] [place] [address] * TSH reflex to free T4 (01/13/2021 11:00 AM CDT) TSH 1.15 0.30 - 4.20 mcIUnit/mL [facility] Blood 01/13/2021 11:0 0 AM CDT 01/13/2021 11:35 AM CDT Merna Bell MD LAB BLOOD ORDERABLES Final Re sult Performing Organization Address [facility] Co de Phone Number [facility] [place] [address] * (ABNORMAL) Hemoglobin A1c (01/13/2021 11:00 AM CDT) Hgb A1C 7.2(H) 4.0 - 5.6 % [facility] Estimated Average Glucose 160 mg/dL [facility] Comment: The ADA recommends reporting [...] MD LAB BLOOD ORDERABLES Final Re sult [facility] [place] [address] * (ABNORMAL) Lipid panel (01/13/2021 11:00 AM CDT) Cholesterol 178 30 - 199 mg/dL [facility] Comment: Interpretive Data Ages < or = [...] revised on 2017. Triglycerides 213(H) <=149 mg/dL [facility] Comment: Interpretive Data Ages < or = [...] on 2017. HDL 44 >=40 mg/dL [facility] Comment: Interpretive Data Ages < or = [...] on 2017. LDL, calculated 91 <=129 mg/dL [facility] Comment: Interpretive Data Ages < or = [...] on 2017. Non-HDL Cholesterol 134 mg/dL [facility] Comment: Interpretive Data Ages < or = [...] revised on 2017. Chol/HDL ratio 4 [facility] Blood 01/13/2021 11:0 0 AM CDT 01/13/2021 11:35 AM CDT Merna Bell MD LAB BLOOD ORDERABLES Final Re sult Performing Organization Address [facility] de Phone Number [facility] [place] [address] * (ABNORMAL) PTH (01/13/2021 11:00 AM CDT) PTH 69(H) 15 - 65 pg/mL [facility] Blood 01/13/2021 11:0 0 AM CDT 01/13/2021 11:35 AM CDT Merna Bell MD LAB BLOOD ORDERABLES Final Re sult Performing Organization Address [facility] de Phone Number [facility] [place] [address] * (ABNORMAL) Renal function panel (01/13/2021 11:00 AM CDT) Sodium 140 135 - 145 mmol/L [facility] Potassium, pl 4.7 3.3 - 4.9 mmol/L [facility] Chloride 108 97 - 110 mmol/L [facility] CO2 24 22 - 32 mmol/L [facility] Anion gap 8 2 - 15 mmol/L [facility] BUN 39(H) 8 - 25 mg/dL [facility] Creatinine 1.10 0.60 - 1.10 mg/dL [facility] Glucose 143 70 - 199 mg/dL [facility] Comment: Interpretive Data Fasting glucose [...] Calcium 9.6 8.5 - 10.3 mg/dL [facility] Phosphorus, pl 3.8 2.3 - 4.5 mg/dL [facility] Albumin 4.2 3.5 - 5.0 g/dL [facility] Blood 01/13/2021 11:0 0 AM CDT 01/13/2021 11:35 AM CDT Merna Bell MD LAB BLOOD ORDERABLES Final Re sult Performing Organization Address City/[facility]/ZIP Co de Phone Number 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
--- OUTSIDE RECORDS SUMMARY | 2024-05-20 07:57 | XMS_ITS | Encounter Summary ---
Author Organization [facility] Address [address] [place] [address] Phone Care Team Providers Care Postmaster Relief Name Role Phone Elpidio Serrato MD Primary Care Provider [phone] Reason for Visit * Diagnostic Imaging (Routine) - Closed Specialty Diagnoses / Procedures Referred By Constantino t Referred To Contact Diagnoses Primary open angle glaucoma (POAG) of both eyes, moderate stage Procedures Forrest Visual Field - OU - Both Eyes Makayla Ramos MD [address] [place] [address] Phone: tel: fax: [facility] (All Locations) Referral ID Status Reason Start Date Expiration Date Visits Re quested Visits Authorized [id number] Closed 02/19/2022 03/21/2023 1 1 Encounter Details Date Type Department Care Team (Late st Contact Info) Description 06/04/2022 9:10 AM SALES EXPERT Imaging Exam [facility] Ophthalmology [address] [facility] 6th [place] [address] Social History Tobacco Use Types [...] file Legal Sex Female 3:59 AM SALES EXPERT Gender Identity Female 05/13/2021 4:21 PM SALES EXPERT Sexual Orientation Not on file documented as of this encounter Plan of Treatment Not on file documented as of this encounter Procedures Procedure Name Priority Date/Time Associated Diagnosis Comments FORREST VISUAL FIELD - OU - BOTH EYES Routine 06/04/2022 9:00 AM SALES EXPERT Primary open angle glaucoma (POAG) of both eyes, moderate stage documented in this encounter Results * Forrest Visual Field - OU - Both Eyes (06/04/2022 9:00 AM SALES EXPERT) Pattern Deviation OS 3.86 dB CONTINUUM Pattern Deviation OD 8.62 dB CONTINUUM Mean Deviation OS -3.66 dB CONTINUUM Mean Deviation OD -6.37 dB CONTINUUM Anatomical Region Laterality Modality Head Other Narrative 06/05/2022 7:10 AM SALES EXPERT Right Eye Fixation was good. Cooperation was [...] on filedocumented in this encounter Care Teams Postmaster Relief Relationship Specialty Start Date End Date Elpidio Serrato MD PCP - General Internal Medicine 06/09/18 documented as of this encounter
--- OUTSIDE RECORDS SUMMARY | 2024-05-20 07:57 | XMS_ITS | Encounter Summary ---
Author Organization [facility] Address [address] [place] [address] Phone Care Team Providers Care Permit Specialist Name Role Phone Elpidio Serrato MD Primary Care Provider [phone] Encounter Details Date Type Department Care Team (Late st Contact Info) Description 02/15/2022 Telephone [facility] Ophthalmology [address] [place] [address] Makayla Ramos MD [address] [place], [place] [id number] Social History Tobacco Use Types Packs/Day Years Used Date Smoking Tobacco: Never Smokeless Tobacco: Never Comments Unknown Sex and Gender Information Value Date Recorded Sex Assigned at Not on file Legal Sex Female 3:59 AM REAL ESTATE INSPECTOR Gender Identity Female 05/13/2021 4:21 PM REAL ESTATE INSPECTOR Sexual Orientation Not on file documented [...] on filedocumented in this encounter Care Teams Permit Specialist Relationship Specialty Start Date End Date Elpidio Serrato MD PCP - General Internal Medicine 06/09/18 documented as of this encounter
--- OUTSIDE RECORDS SUMMARY | 2024-05-20 07:57 | XMS_ITS | Encounter Summary ---
Author Organization [facility] Address [address] [place] [address] Phone Care Team Providers Care Pin Inserter Regulator Name Role Phone Elpidio Serrato MD Primary Care Provider [phone] Encounter Details Date Type Department Care Team (Latest Contact Info) Description 01/24/2021 4:10 PM CDT Office Visit [facility] Endocrinology Metabolism and Lipid [address] [facility] 13th [place] [address] [place] [address] Merna Bell MD [address] [facility] [address] [place] [address] 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 [place] APPENDECTOMY Appendectomy - (Added by TW Conv) ??? [place] DELIVERY ONLY Section - in 1972 and 1975 (Added by TW Conv) ??? [place] INCISE FINGER TENDON SHEATH Hand Incision Tendon [...] takes Benicar ?? Type 2 diabetes mellitus ([facility]) Glucoses are excellent and variability is acceptable [...] type documented in this encounter Care Teams Pin Inserter Regulator Relationship Specialty Start Date End Date Elpidio Serrato MD PCP - General Internal Medicine 06/09/18 documented as of this encounter
--- OUTSIDE RECORDS SUMMARY | 2024-05-20 07:57 | XMS_ITS | Encounter Summary ---
Author Organization [facility] Address [address] [place] [address] Phone Care Team Providers Care Fish Frog Or Oyster Farmer Name Role Phone Elpidio Srerato MD Primary Care Provider Encounter Details Date Type Department Care Team (Late st Contact Info) Description 04/20/2022 Orders Only [facility] Endocrinology Metabolism and Lipid [address] [place] [address] Medical Office Building [address], [address] [place] [address] Princess Hu RMA Social History Tobacco Use Types Packs/Day Years Used Date Smoking Tobacco: Never Smokeless Tobacco: Never Comments Unknown Sex and Gender Information Value Date Recorded Sex Assigned at Not on file Legal Sex Female 3:59 AM PRODUCTION ASSOCIATE Gender Identity Female 05/13/2021 4:21 PM PRODUCTION ASSOCIATE Sexual Orientation Not on file documented [...] documented as of this encounter Care Teams Fish Frog Or Oyster Farmer Relationship Specialty Start Date End Date Elpidio Serrato MD PCP - General Internal Medicine 06/09/18 documented as of this encounter
--- OUTSIDE RECORDS SUMMARY | 2024-05-20 07:57 | XMS_ITS | Encounter Summary ---
Author Organization [facility] Address [address] [place] [address] Phone Care Team Providers Care Third Hand Name Role Phone Elpidio Serrato MD Primary Care Provider [phone] Encounter Details Date Type Department Care Team (Latest Contact Info) Description 12/25/2021 9:00 AM CDT Telemedicine [facility] Endocrinology Metabolism and Lipid [address] [facility] 13th [place] [address] [place] [address] Merna Bell MD [address] [facility] [address] [place] [address] Type 2 diabetes mellitus with moderate nonproliferative [...] on file Legal Sex Female 3:59 AM SNOW REMOVING SUPERVISOR Gender Identity Female 05/13/2021 4:21 PM SNOW REMOVING SUPERVISOR Sexual Orientation Not on file documented [...] at home in the state [facility]. The patient visit started at 0915 [...] video visit during the [facility]-[address] [place] [address] emergencywas explained to them. After being given [...] ratio less than 30 mg/g ([facility]) Current Outpatient Medications: ??? atorvastatin (LIPITOR) 20 [...] 03/31/2019 Type 2 diabetes mellitus (CMS/[facility]) Glucose control appears to be excellent. 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, with long-term current use of insulin, unspecified laterality ([facility]) RENAL FUNCTION PANEL Routine 06/25/2022 8:40 AM SNOW REMOVING SUPERVISOR Chronic kidney disease (CKD) stage G3b/A1, moderately decreased glomerular filtration rate (GFR) between 30-44 mL/min/1.73 square meter and albuminuria creatinine ratio less than 30 mg/g (HCC) LIPID PANEL Routine 06/25/2022 8:40 AM SNOW REMOVING SUPERVISOR Mixed hyperlipidemia documented in this encounter Results * TSH reflex to free T4 (06/25/2022 8:40 AM SNOW REMOVING SUPERVISOR) Pathologist [facility] TSH 1.69 0.40 - 4.50 mIU/L [facility] Blood specimen (specimen) 06/25/2022 8:40 AM SNOW REMOVING SUPERVISOR 06/25/2022 8:41 AM SNOW REMOVING SUPERVISOR us Merna Bell MD LAB BLOOD ORDERABLES Final Re sult [facility] [address] [place] [address] * PTH (06/25/2022 8:40 AM SNOW REMOVING SUPERVISOR) Pathologist [facility] Parathyroid hormone, intact 71 16 - 77 pg/mL [facility] Comment: Interpretive Guide ?Intact PTH ? Calcium ? ------- Normal Parathyroid ?Normal ? Normal Hypoparathyroidism ?Low or Low Normal ?Low Hyperparathyroidism ?? Primary ?Normal or High ? High ?? Secondary ?High ? Normal or Low ?? Tertiary ? High ? High Non-Parathyroid ?? Hypercalcemia ?Low or Low Normal ?High Blood specimen (specimen) 06/25/2022 8:40 AM SNOW REMOVING SUPERVISOR 06/25/2022 8:41 AM SNOW REMOVING SUPERVISOR us Merna Bell MD LAB BLOOD ORDERABLES Final Re sult [facility] [address] [place] [phone] * (ABNORMAL) Renal function panel (06/25/2022 8:40 AM SNOW REMOVING SUPERVISOR) Glucose 95 65 - 99 mg/dL [facility] [...] [facility] Blood specimen (specimen) 06/25/2022 8:40 AM SNOW REMOVING SUPERVISOR 06/25/2022 8:41 AM SNOW REMOVING SUPERVISOR Merna Bell MD LAB BLOOD ORDERABLES Final Re sult Performing Organization Address City/[facility]/ZIP Co de Phone Number [facility] [address] [place] [phone] * (ABNORMAL) Lipid panel (06/25/2022 8:40 AM SNOW REMOVING SUPERVISOR) Pathologist [facility] Cholesterol 173 <200 mg/dL [facility] [...] LDL-C. Mikie LOPEZ et al. VIOLA. 2013;310(19): 4729-3059 (http://education.[employer]/faq/LPW121) Chol/HDL ratio 3.5 <5.0 (calc) [facility] Non-HDL, (LDL+VLDL) 124 <130 mg/dL (calc) [facility] Comment: For patients with diabetes plus 1 major ASCVD risk factor, treating to a non-HDL-C goal of <100 mg/dL (LDL-C of <70 mg/dL) is considered a therapeutic option. Blood specimen (specimen) 06/25/2022 8:40 AM SNOW REMOVING SUPERVISOR 06/25/2022 8:41 AM SNOW REMOVING SUPERVISOR Merna Bell MD LAB BLOOD ORDERABLES Final Re sult [facility] [address] [place] [address] * Hemoglobin A1c (06/25/2022 8:40 AM SNOW REMOVING SUPERVISOR) Hgb A1C 5.4 <5.7 % of total [facility]gb [facility] Comment: For the purpose of screening for the presence of diabetes: <5.7% ? Consistent with the absence of diabetes 5.7-6.4% ?Consistent with increased risk for diabetes ?(prediabetes) > or =6.5% ??Consistent with diabetes This assay result is consistent with a decreased risk of diabetes. Currently, no consensus exists regarding use of hemoglobin A1c for diagnosis of diabetes in children. According to [place] Diabetes Association (ADA) guidelines, hemoglobin A1c <7.0% represents optimal control in non- diabetic patients. Different metrics may apply to specific patient populations. Standards of Medical Care in Diabetes(ADA). ?? Blood specimen (specimen) 06/25/2022 8:40 AM SNOW REMOVING SUPERVISOR 06/25/2022 8:41 AM SNOW REMOVING SUPERVISOR us Merna Bell MD LAB BLOOD ORDERABLES Final Re sult [facility] [address] [place] [address] documented in this encounter Visit Diagnoses Diagnosis [...] 05/30/2022 added in this encounter Care Teams Third Hand Relationship Specialty Start Date End Date Elpidio Serrato MD PCP - General Internal Medicine 06/09/18 documented as of this encounter
--- OUTSIDE RECORDS SUMMARY | 2024-05-20 07:57 | XMS_ITS | Encounter Summary ---
Author Organization [facility] Address [address] [place] [address] Phone Care Team Providers Care Production Quality Analyst Name Role Phone Elpidio Serrato MD Primary Care Provider [phone] Reason for Visit * Reason Onset Date Comments 06/14/2022 surgery 05/29/2022 Encounter Details Date Type Department Care Team (Late st Contact Info) Description 05/29/2022 Telephone [facility] Ophthalmology [facility] [place] [address] Geovanna Doe COA 06/14/2022 surgery [...] file Legal Sex Female 3:59 AM PROJECT MANAGER/TEAM COACH Gender Identity Female 05/13/2021 4:21 PM PROJECT MANAGER/TEAM COACH Sexual Orientation Not on file documented as of this encounter Miscellaneous Notes * Telephone Encounter - Geovanna Doe COA - 06/13/2022 8:56 AM PROJECT MANAGER/TEAM COACH Spoke to patient and gave all surgery details for surgery scheduled on 06/14/[address] Ramos Arrival time: 7:30am Surgery is at [facility] on the 4th floor. Remember; nothing to eat or drink after midnight the night before and make sure they have a milk driver to drive them home (family member or friend). For the patient's safety, Uber/Taxis are not acceptable transportation after discharge. Address: [facility], 4th floor surgery center. [address] [place] [address] ECT MANAGER/TEAM COACH * Telephone Encounter - Geovanna Doe COA - 05/29/2022 3:06 PM PROJECT MANAGER/TEAM COACH Phoned patient to schedule surgery: [facility] Pre-Op appt scheduled 06/04/2022 Discussed surgery date: [...] PA needed Line up (arrival time) [x] ECT MANAGER/TEAM COACH ECT MANAGER/TEAM COACH ECT MANAGER/TEAM COACH ECT MANAGER/TEAM COACH ECT MANAGER/TEAM COACH documented in this encounter Plan of Treatment Not on file documented as of this encounter Visit Diagnoses Not on filedocumented in this encounter Care Teams Production Quality Analyst Relationship Specialty Start Date End Date Elpidio Serrato MD PCP - General Internal Medicine 06/09/18 documented as of this encounter
--- OUTSIDE RECORDS SUMMARY | 2024-05-20 07:57 | XMS_ITS | Encounter Summary ---
Author Organization [facility] Address [address] [place] [address] Phone Care Team Providers Care Hat Brim Curler Name Role Phone Elpidio Serrato MD Primary Care Provider [phone] Reason for Visit * Reason Onset Date Comments CMN 09/12/2021 Noemi Encounter Details Date Type Department Care Team (Late st Contact Info) Description 09/12/2021 Telephone [facility] Endocrinology Metabolism and Lipid [address] [facility] Office Building [address] [address] Princess Hu RMA CMN ([facility]) Social History Tobacco Use Types Packs/Day Years Used Date Smoking Tobacco: Never Smokeless Tobacco: Never Comments Unknown Sex and Gender Information Value Date Recorded Sex Assigned at Not on file Legal Sex Female 3:59 AM SALES SUPPORT ASSISTANT Gender Identity Female 05/13/2021 4:21 PM SALES SUPPORT ASSISTANT Sexual Orientation Not on file documented [...] on filedocumented in this encounter Care Teams Hat Brim Curler Relationship Specialty Start Date End Date Elpidio Serrato MD PCP - General Internal Medicine 06/09/18 documented as of this encounter
--- OUTSIDE RECORDS SUMMARY | 2024-05-20 07:57 | XMS_ITS | Encounter Summary ---
Author Organization [facility] Address [address] [place] [address] Phone Care Team Providers Care Manufacturing Maintenance Mechanic Name Role Phone Elpidio Serrato MD Primary Care Provider [phone] Reason for Referral * Diagnostic Imaging (Routine) - Closed Specialty Diagnoses / Procedures Referred By Constantino alvarado Referred To Contact Diagnoses Primary open angle glaucoma (POAG) of both eyes, moderate stage Procedures Forrest Visual Field - OU - Both Eyes Makayla Ramos MD [address] [place] [address] Phone: tel: fax: [facility] (All Locations) Referral ID Status Reason Start Date Expiration Date Visits Re quested Visits Authorized [id number] Closed 06/04/2022 07/04/2023 1 1 ICIAN PRACTICE MARKET MANAGER Encounter Details Date Type Department Care Team (Late st Contact Info) Description 06/04/2022 9:15 AM PHYSICIAN PRACTICE MARKET MANAGER Office Visit [facility] Ophthalmology [facility]1 [facility] [place] [address] Makayla Ramos MD [address] [place] [address] Primary open angle glaucoma (POAG) [...] on file Legal Sex Female 3:59 AM PHYSICIAN PRACTICE MARKET MANAGER Gender Identity Female 05/13/2021 4:21 PM PHYSICIAN PRACTICE MARKET MANAGER Sexual Orientation Not on file documented [...] agree with the findings/plan of the Resident/Fellow ICIAN PRACTICE MARKET MANAGER documented in this encounter Miscellaneous Notes * Assessment & Plan Note - Makayla Ramos MD - 06/04/2022 2:51 PM PHYSICIAN PRACTICE MARKET MANAGER Associated Problem(s): Pseudophakia of both eyes NS [...] perioperative steroids: no Book Phaco/IOL/goniotomy right eye. ICIAN PRACTICE MARKET MANAGER * Assessment & Plan Note - Makayla Ramos MD - 06/04/2022 2:51 PM PHYSICIAN PRACTICE MARKET MANAGER Associated Problem(s): Primary open angle glaucoma (POAG) of both eyes, moderate stage Progression of field - plan for goniotomy at time of surgery Continue drops at this time ICIAN PRACTICE MARKET MANAGER documented in this encounter Plan of Treatment Not on file documented as of this encounter Procedures Procedure Name Priority Date/Time Associated Diagnosis Comments FORREST VISUAL FIELD - OU - BOTH EYES Routine 06/04/2022 2:50 PM PHYSICIAN PRACTICE MARKET MANAGER Primary open angle glaucoma (POAG) of both eyes, moderate stage documented in this encounter Results * Forrest Visual Field - OU - Both Eyes (06/04/2022 2:50 PM PHYSICIAN PRACTICE MARKET MANAGER) Anatomical Region Laterality Modality Head Visual Field Narrative 06/04/2022 2:50 PM PHYSICIAN PRACTICE MARKET MANAGER Right Eye Fixation was good. Cooperation [...] Macula Normal Normal Wearing Rx Sphere Cylinder Allen Add Right eye -3.25 +1.00 166 +2.50 Left eye -2.75 +0.75 035 +2.50 Manifest Refraction Sphere Cylinder Allen Dist [place] Right eye -4.25 +1.00 165 20/30+2 Left eye -3.00 +0.75 035 20/25 Care Teams Manufacturing Maintenance Mechanic Relationship Specialty Start Date End Date Elpidio Serrato MD PCP - General Internal Medicine 06/09/18 documented as of this encounter
--- OUTSIDE RECORDS SUMMARY | 2024-05-20 07:57 | XMS_ITS | Encounter Summary ---
Author Organization [facility] Address [address] [place] [address] Phone Care Team Providers Care Ct Scan Technician Name Role Phone Elpidio Serrato MD Primary Care Provider Reason for Referral * Diagnostic Imaging (Routine) - Closed Specialty Diagnoses / Procedures Referred By Constantino alvarado Referred To Contact Diagnoses Primary open angle glaucoma (POAG) of both eyes, moderate stage Procedures Forerst Visual Field - OU - Both Eyes Makayla Ramos MD [address] [place] [address] Phone: tel: fax: [facility] (All Locations) Referral ID Status Reason Start Date Expiration Date Visits Re quested Visits Authorized [id number] Closed 05/16/2022 06/15/2023 1 1 TY CORONER Encounter Details Date Type Department Care Team (Late st Contact Info) Description 05/16/2022 Orders Only [facility] Ophthalmology [facility] [place] [address] Makayla Raoms MD [address] [place] [address] Nuclear sclerotic cataract of both eyes (Primary Dx); Primary open angle glaucoma (POAG) of both eyes, moderate stage Social History Tobacco Use Types Packs/Day Years Used Date Smoking Tobacco: Never Smokeless Tobacco: Never Comments Unknown Sex and Gender Information Value Date Recorded Sex Assigned at Not on file Legal Sex Female 3:59 AM COUNTY CORONER Gender Identity Female 05/13/2021 4:21 PM COUNTY CORONER Sexual Orientation Not on file documented as [...] stage documented in this encounter Care Teams Ct Scan Technician Relationship Specialty Start Date End Date Elpidio Serrato MD PCP - General Internal Medicine 06/09/18 documented as of this encounter
--- OUTSIDE RECORDS SUMMARY | 2024-05-20 07:57 | XMS_ITS | Encounter Summary ---
Author Organization [facility] Address [address] [place] [address] Phone Care Team Providers Care Chain Sales Representative Name Role Phone Elpidio Serrato MD Primary Care Provider [phone] Reason for Visit * Reason Onset Date Comments CMN 09/05/2021 [facility] Encounter Details Date Type Department Care Team (Late st Contact Info) Description 09/05/2021 Telephone [facility] Endocrinology Metabolism and Lipid [facility] Office Building [address] [address] Princess Hu RMA CMN ([facility]) Social History Tobacco Use Types Packs/Day Years Used Date Smoking Tobacco: Never Smokeless Tobacco: Never Comments Unknown Sex and Gender Information Value Date Recorded Sex Assigned at Not on file Legal Sex Female 3:59 AM MACHINE DESIGN ENGINEER Gender Identity Female 05/13/2021 4:21 PM MACHINE DESIGN ENGINEER Sexual Orientation Not on file documented as of this encounter Miscellaneous Notes * Telephone Encounter - Princess Hu RMA - 09/05/2021 12:57 PM CDT Images from the original note were not included. Faxed OV to [facility] for pt's diabetic supplies. documented in this encounter Plan of Treatment Not on file documented as of this encounter Visit Diagnoses Not on filedocumented in this encounter Care Teams Chain Sales Representative Relationship Specialty Start Date End Date Elpidio Serrato MD PCP - General Internal Medicine 06/09/18 documented as of this encounter
--- OUTSIDE RECORDS SUMMARY | 2024-05-20 07:57 | XMS_ITS | Encounter Summary ---
Author Organization [facility] Address [address] [place] [address] Care Team Providers Care Hourly Team Members Name Role Phone Elpidio Serrato MD Primary Care Provider [phone] Reason for Visit * Auth/Cert Specialty Diagnoses / Procedures Referred By Contac t Referred To Contact Diagnoses Nuclear sclerotic cataract of both eyes Primary open angle glaucoma of both eyes, moderate stage Nuclear sclerotic cataract of both eyes [H25.13] Primary open angle glaucoma of both eyes, moderate stage [H40.1132] Procedures AK XCAPSL CTRC RMVL INSJ IO LENS PROSTH W/O ECP AK GONIOTOMY EXTRACTION CATARACT - PHACOEMULSIFICATION AND LENS IMPLANT - right eye GONIOTOMY - right eye Referral ID Status Reason Start Date Expiration Date Visits Re quested Visits Authorized [id number] 1 1 Encounter Details Date Type Department Care Team (Late st Contact Info) Description 06/14/2022 9:17 AM SHEET FOLDER Anesthesia Event [facility] Operating Room [facility] [address] [place] [address] Fabi Andrade MD [address] [place] [address] Malika So NP [address] [facility] [phone] [place] [address] Anesthesia Record Procedure Summary Procedure Name Responsible [...] on file Legal Sex Female 3:59 AM SHEET FOLDER Gender Identity Female 05/13/2021 4:21 PM SHEET FOLDER Sexual Orientation Not on file documented as of this encounter OR Notes * Anesthesia Postprocedure Evaluation - Wally Man MD - 06/14/2022 10:43 AM CST Patient: Isabelle Lutz Procedure Summary Date: 06/14/22 Room / Location: [facility] CAM OR POD 4 ROOM P / [facility] CAM OR POD 4 Anesthesia Start: [...] Nausea/Vomiting status: none No notable events documented. T FOLDER * Anesthesia Preprocedure Evaluation - Fabi Andrade MD - 05/31/2022 8:25 AM CST Images from the original note were not included. Center for Preoperative Assessment and Planning Preoperative Evaluation Record Evaluation type/location: TPAP from [facility] Planned procedure site: [facility] CAM OR (Pod 4) Date: 05/31/22 [...] Cardiovascular Pertinent negatives: hypertension ; CAD ; SC ; CABG ; valvular heart disease; atrial [...] provided by telephone and electronically sent via Poynt. Patient verbalized understanding of preoperative plan. Blood bank needs for day of procedure: No type and screen needed Pending labs/tests include: POC Glucose The patient is on aspirin therapy for primary prevention. The bleeding risk for the planned procedure is insignificant and therefore aspirin can be continued throughout the periprocedural period. Please call the CPAP chart room clinician ([phone]) with any questions. TPAP complete Preoperative evaluation [...] albuminuria creatinine ratio less than 30 mg/g ([facility]) Past Medical History: Diagnosis Date ??? Cataract ??? Diabetes mellitus ([facility]) ??? Diabetic retinopathy (CMS/HCC) ([facility]) ??? Glaucoma ??? Multiparity History Of ___ Previous Pregnancies - 7 pregnancies, 2 children - C-sections. (Added by TW Conv) ??? Nonproliferative diabetic retinopathy (CMS/HCC) ([facility]) 11/03/2009 ??? Personal history of other specified conditions History of chest pain - Stress test negative on 08/01/06 (Added by TW Conv) Past Surgical History: Procedure Laterality Date ??? AK APPENDECTOMY unkown dates per pt ??? AK DELIVERY ONLY Section - in 1972 and 1975 (Added by TW Conv) ??? AK TENDON SHEATH INCISION Hand Incision Tendon [...] taking differently: Take 88 mcg by mouth ux ui designer before breakfast metFORMIN (GLUCOPHAGE) 500 mg tablet [...] pen injector injection Past Week 12/14/21 -- Mrena Bell MD INJECT 1MG SUBCUTANEOUSLY ONCE A [...] protocol when under care of a DIRECTOR OF SPORTS MEDICINE Planned anesthesia: MAC Induction: Induction: intravenous. Postoperative Plan: Patient's planned disposition post procedure is Outpatient. Informed Consent: Discussed plan with DIRECTOR OF SPORTS MEDICINE. Anesthesia plan and risks discussed with patient. Consent and Attending signature: I and/or my designee have discussed the anesthesia plan, benefits, possible alternatives, parental presence at time of induction (if indicated), and clinically relevant risks that may include dental injury, unintentional awareness, and/or other complications. The patient and/or parent/legal guardian understand, and agree to proceed. All questions answered. T FOLDER T FOLDER documented in this encounter Plan of Treatment [...] 0919, Anesthesia Intra-op Given 06/14/2022 9:31 AM SHEET FOLDER 25 mcg Given 06/14/2022 9:28 AM SHEET FOLDER 25 mcg Given 06/14/2022 9:25 AM SHEET FOLDER 25 mcg Lactated Ringer's (LR) infusion 30 mL/hr, intravenous, Continuous, Starting on Dilma 06/14/22 at 0900, Pre-Op Rate/Dose Verify 06/14/2022 9:17 AM SHEET FOLDER 30 mL/hr New Bag 06/14/2022 8:48 AM SHEET FOLDER 30 mL/hr 30 mL/hr midazolam (VERSED) 1 mg/mL preservative free injection intravenous, Administer over 2 Minutes, As needed, Starting on Dilma 06/14/22 at 0917, Anesthesia Intra-op Given 06/14/2022 9:24 AM SHEET FOLDER 0.5 mg Given 06/14/2022 9:17 AM SHEET FOLDER 0.5 mg documented in this encounter Care Teams Hourly Team Members Relationship Specialty Start Date End Date Elpidio Serrato MD PCP - General Internal Medicine 06/09/18 documented as of this encounter
--- OUTSIDE RECORDS SUMMARY | 2024-05-20 07:57 | XMS_ITS | Encounter Summary ---
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, with long-term current use of insulin, unspecified laterality (HCC) (Primary Dx); Mixed hyperlipidemia; Acquired hypothyroidism Social History Tobacco Use Types Packs/Day Years Used Date Smoking Tobacco: Never Smokeless Tobacco: Never Comments Unknown Sex and Gender Information Value Date Recorded Sex Assigned at Not on file Legal Sex Female 3:59 AM MEDICAL HOSPITAL SALES Gender Identity Female 05/13/2021 4:21 PM MEDICAL HOSPITAL SALES Sexual Orientation Not on file documented as of this encounter Progress Notes * Merna Bell MD - 07/24/2021 9:00 AM CDT This was a telemedicine visit with Isabelle Lutz alone which took place via Telephone No Internet/Computer. During the visit, I was located at home and the patient was located at home in the state of [place]. The patient visit started at 0915 and [...] a telephone or [facility] emergency[facility] explained to them. After being [...] dose of levothyroxine. Type 2 diabetes mellitus ([facility]) Diabetes control is doing well according to the patient. Will recheck A1c, and I have asked pt to download the Wine[employer]on heather and Clarity heather so that telemedicine [...] LDL-C. Mikie SS et al. VIOLA. 2013;310(19): 5554-0316 (http://education.[employer]/faq/ECS625) Chol/HDL ratio 5.2(H) <5.0 (calc) [facility] [...] BLOOD ORDERABLES Final Re sult [facility] [address] [place] [address] * TSH reflex to free T4 (10/23/2021 12:00 AM CDT) Pathologist [facility] TSH 2.42 0.40 - 4.50 mIU/L [facility] Blood specimen (specimen) 10/23/2021 10/23/2021 7:57 AM CDT Narrative [facility] - 10/24/2021 3:00 AM CDT FASTING:YES FASTING: YES us Merna Bell MD LAB BLOOD ORDERABLES Final Re sult JOSE C Kelly [address] [facility] [place] [address] * (ABNORMAL) Renal function panel (10/23/2021 12:00 AM CDT) Pathologist [facility] Glucose 103(H) 65 - 99 mg/dL [facility] [...] approximately 13% higher for people identified as -Gambian. eGFR NON-AFR. [place] CITIZ[place] 43(L) > OR = 60 mL/min/1. 73m2 [...] ORDERABLES Final Re sult [facility] [address] [place] [address] * (ABNORMAL) Hemoglobin A1c (10/23/2021 12:00 AM CDT) Hgb A1C 5.9(H) <5.7 % of total Hgb [facility] christiano Campbell Comment: For someone without [...] LAB BLOOD ORDERABLES Final Re sult [facility] [address] [place] [address] documented in this encounter Visit Diagnoses Diagnosis [...] documented as of this encounter Care Teams Jde Developer Relationship Specialty Start Date End Date Elpidio Serrato MD PCP - General Internal Medicine 06/09/18 documented as of this encounter
--- OUTSIDE RECORDS SUMMARY | 2024-05-20 07:58 | XMS_ITS | Encounter Summary ---
Author Organization [facility] Address [address] [place] [address] Phone Care Team Providers Care Educational/Development Assistant Name Role Phone Elpidio Serrato MD Primary Care Provider [phone] Reason for Referral * Procedure (Routine) - Closed Specialty Diagnoses / Procedures Referred By Constantino alvarado Referred To Contact Diagnoses Primary open angle glaucoma (POAG) of both eyes, moderate stage Procedures Laser Trabeculoplasty Selective - OD - Right Eye Niranjan Thomas MD [address] [address] Phone: tel: fax: [facility] (All Locations) Referral ID Status Reason Start Date Expiration Date Visits Re quested Visits Authorized [id number] Closed 04/23/2019 11/01/2020 1 1 E ELECTRICIAN HELPER Encounter Details Date Type Department Care Team (Late st Contact Info) Description 04/23/2019 10:30 AM STAGE ELECTRICIAN HELPER Office Visit [facility] Ophthalmology [address] [place] [address] [place] [address] Niranjan Thomas MD [address] [address] Primary open angle glaucoma (POAG) of both eyes, moderate stage (Primary Dx); Nuclear sclerotic cataract of both eyes Social History Tobacco Use Types Packs/Day Years Used Date Smoking Tobacco: Never Smokeless Tobacco: Never Comments Unknown Sex and Gender Information Value Date Recorded Sex Assigned at Not on file Legal Sex Female 3:59 AM STAGE ELECTRICIAN HELPER Gender Identity Female 05/13/2021 4:21 PM STAGE ELECTRICIAN HELPER Sexual Orientation Not on file documented as of this encounter Patient Instructions * Patient Instructions* Niranjan Thomas MD - 04/23/2019 10:30 AM STAGE ELECTRICIAN HELPER Dilation instructions Please refer to your Dilating Eyedrops brochure for instructions regarding dilation. E ELECTRICIAN HELPER documented in this encounter Ordered Prescriptions Prescription [...] 1 month (around 05/24/2019) for SLT Laser. E ELECTRICIAN HELPER documented in this encounter Miscellaneous Notes * Assessment & Plan Note - Niranjan Thomas MD - 04/23/2019 10:45 AM STAGE ELECTRICIAN HELPER Associated Problem(s): Pseudophakia of both eyes HALLEY Joseph scribing for and in the presence of Niranjan Thomas MD E ELECTRICIAN HELPER * Assessment & Plan Note - Michelle [...] Drops: Combigan BID OU Latanoprost QHS OD E ELECTRICIAN HELPER E ELECTRICIAN HELPER E ELECTRICIAN HELPER E ELECTRICIAN HELPER E ELECTRICIAN HELPER documented in this encounter Plan of Treatment Not on file documented as of this encounter Results * Laser Trabeculoplasty Selective - OD - Right Eye (05/28/2019 11:14 AM STAGE ELECTRICIAN HELPER) Anatomical Region Laterality Modality Head Laser Room Narrative 05/28/2019 11:14 AM STAGE ELECTRICIAN HELPER Time Out Informed consent was obtained after [...] Normal Normal Periphery Normal Normal Care Teams Educational/Development Assistant Relationship Specialty Start Date End Date Elpidio Serrato MD PCP - General Internal Medicine 06/09/18 documented as of this encounter
--- OUTSIDE RECORDS SUMMARY | 2024-05-20 07:58 | XMS_ITS | Encounter Summary ---
Author Organization [facility] Address [address] [place] [address] Phone Care Team Providers Care Professor Of Physics Name Role Phone Elpidio Serrato MD Primary Care Provider [phone] Encounter Details Date Type Department Care Team (Late st Contact Info) Description 01/13/2020 Orders Only [facility] Endocrinology Metabolism and Lipid [address] [facility] Advanced Medicine 13th [place] [address] [place] [address] Merna Bell MD [address] [facility] [address] [place] [address] Type 2 diabetes mellitus (CMS/HCC) (Primary Dx); Acquired hypothyroidism; Mixed hyperlipidemia Social History Tobacco Use Types Packs/Day Years Used Date Smoking Tobacco: Never Smokeless Tobacco: Never Comments Unknown Sex and Gender Information Value Date Recorded Sex Assigned at Not on file Legal Sex Female 3:59 AM HYDROPONICS WORKER Gender Identity Female 05/13/2021 4:21 PM HYDROPONICS WORKER Sexual Orientation Not on file documented as of this encounter Plan of Treatment Not on file documented as of this encounter Results * (ABNORMAL) Comprehensive metabolic panel (01/25/2020 9:22 AM CDT) Sodium 142 135 - 145 mmol/L [facility] Potassium, pl 5.8(H) 3.3 - 4.9 mmol/L [facility] Comment:Hemolyzed; Potassium value may be falsely elevated by as much as 0.3-0.5 mmol/L. Suggest redraw and reanalysis. Chloride 110 97 - 110 mmol/L [facility] CO2 23 22 - 32 mmol/L [facility] Anion gap 9 2 - 15 mmol/L [facility] BUN 33(H) 8 - 25 mg/dL [facility] Creatinine 1.09 0.60 - 1.10 mg/dL [facility] Glucose 163 70 - 199 mg/dL [facility] Comment: Interpretive Data Fasting glucose [...] 2017. Calcium 9.4 8.5 - 10.3 mg/dL [facility] Bilirubin, total 0.3 0.1 - 1.2 mg/dL [facility] Protein, pl 7.1 6.5 - 8.5 g/dL [facility] Albumin 4.2 3.5 - 5.0 g/dL [facility] Alk phos 73 40 - 130 Units/L [facility] ALT 17 7 - 45 Units/L [facility] AST 26 10 - 45 Units/L [facility] Comment:Hemolyzed; result ma y be falsely elevated Blood specimen (specimen) 01/25/2020 9:22 AM CDT 01/25/2020 9:46 AM CDT us Merna Bell MD LAB BLOOD ORDERABLES Final Re sult [facility] [place] [address] * Albumin Creatinine Ratio, Urine (01/25/2020 9:22 AM CDT) Albumin Ur <12.0 mg/L [facility] Comment: Interpretive Data No reference range established. Current interpretive data was last revised 2018. Creatinine Ur 107.9 mg/dL [facility] Comment: Interpretive Data No reference range established. Current interpretive data was last revised 2018. Albumin Creatinine Ratio, Ur <11 1 - 29 mg/g [facility] Urine 01/25/2020 9:22 AM CDT 01/25/2020 9:46 AM CDT Merna Bell MD LAB URINE ORDERABLES Final Re sult Performing Organization Address [facility]/ZIP Co de Phone Number [facility] Department [place] [address] * TSH reflex to free T4 (01/25/2020 9:22 AM CDT) [facility] TSH 1.98 0.30 - 4.20 mcIUnit/mL [facility] Blood specimen (specimen) 01/25/2020 9:22 AM CDT 01/25/2020 9:46 AM CDT Merna Bell MD LAB BLOOD ORDERABLES Final Re sult Performing Organization Address [facility] de Phone Number [facility] [place] [address] * (ABNORMAL) Hemoglobin A1c (01/25/2020 9:22 AM CDT) [facility] Hgb A1C 7.2(H) 4.0 - 5.6 % [facility] Estimated Average Glucose 160 mg/dL [facility] Comment: The ADA recommends reporting an estimated Average Glucose (eAG) with all Hemoglobin A1c results using the equation derived from a study of 507 normal and diabetic adults. ??Minority populations were underrepresented and children were not included. ?? (Diabetes Care 31:1015-6782, 2008). ??The eAG is not equivalent to a fasting glucose. Blood specimen (specimen) 01/25/2020 9:22 AM CDT 01/25/2020 9:46 AM CDT us Merna Bell MD LAB BLOOD ORDERABLES Final Re sult [facility] [place] [address] * (ABNORMAL) Lipid panel (01/25/2020 9:22 AM CDT) Cholesterol 171 30 - 199 mg/dL [facility] Comment: Interpretive Data Ages < or = [...] on 2017. Triglycerides 167(H) <=149 mg/dL [facility] Comment: Interpretive Data Ages < or = [...] revised on 2017. HDL 48 >=40 mg/dL [facility] Comment: Interpretive Data Ages < or [...] on 2017. LDL, calculated 90 <=129 mg/dL [facility] Comment: Interpretive Data Ages < [...] Cholesterol 123 mg/dL [facility] Comment: Interpretive Data Ages < or = [...] last revised on 2017. Chol/HDL ratio 4 [facility] Blood specimen (specimen) 01/25/2020 9:22 AM CDT 01/25/2020 9:46 AM CDT us Merna Bell MD LAB BLOOD ORDERABLES Final Re sult [facility] [place] [address] * CBC with auto differential (01/25/2020 9:22 AM CDT) WBC 7.2 3.8 - 9.9 K/cumm [facility] Hgb 12.1 11.9 - 15.5 g/dL [facility] Hct 37.2 35.6 - 45.5 % [facility] Plt 206 150 - 400 K/cumm [facility] MPV 10.8 9.1 - 12.3 fL [facility] RBC 4.07 3.90 - 5.20 M/cumm [facility] MCV 91.4 81.3 - 96.4 fL [facility] MCH 29.7 27.1 - 33.3 pg [facility] MCHC 32.5 32.3 - 35.7 g/dL [facility] RDW CV 12.6 11.1 - 14.9 % [facility] RDW SD 42.0 35.7 - 48.1 fL [facility] NRBC abs 0.00 0.00 - 0.01 K/cumm [facility] Blood specimen (specimen) 01/25/2020 9:22 AM CDT 01/25/2020 9:46 AM CDT us Merna Bell MD LAB BLOOD ORDERABLES Final Re sult Performing Organization Address City/State/[facility] Co de Phone Number [facility] [place] [address] documented in this encounter Visit Diagnoses Diagnosis Type 2 diabetes mellitus (HCC)- Primary Acquired hypothyroidism Unspecified hypothyroidism Mixed hyperlipidemia documented in this encounter Care Teams Professor Of Physics Relationship Specialty Start Date End Date Elpidio Serrato MD PCP - General Internal Medicine 06/09/18 documented as of this encounter
--- OUTSIDE RECORDS SUMMARY | 2024-05-20 07:58 | XMS_ITS | Encounter Summary ---
Author Organization [facility] Address [address] [place] [address] Phone Care Team Providers Care Lead Recreation Assistant Name Role Phone Elpidio Serrato MD Primary Care Provider [phone] Reason for Visit * Reason Comments Glaucoma Encounter Details Date Type Department Care Team (Late st Contact Info) Description 04/25/2020 8:00 AM MILK TESTER Office Visit [facility] Ophthalmology [address] [facility] [place] [address] Makayla Ramos MD [address] [place] [address] Primary open angle glaucoma (POAG) of both eyes, moderate stage (Primary Dx); Nuclear sclerotic cataract of both eyes Social History Tobacco Use Types Packs/Day Years Used Date Smoking Tobacco: Never Smokeless Tobacco: Never Comments Unknown Sex and Gender Information Value Date Recorded Sex Assigned at Not on file Legal Sex Female 3:59 AM MILK TESTER Gender Identity Female 05/13/2021 4:21 PM MILK TESTER Sexual Orientation Not on file documented as of this encounter Patient Instructions * Patient Instructions* Makayla Ramos MD - 04/25/2020 8:00 AM MILK TESTER TESTER documented in this encounter Progress Notes * [...] agree with the findings/plan of the Resident/Fellow TESTER documented in this encounter Miscellaneous Notes * Assessment & Plan Note - Makayla Ramos MD - 04/16/2020 8:18 AM MILK TESTER Associated Problem(s): Primary open angle glaucoma (POAG) [...] 6 months with DFE OU, testing thereafter TESTER TESTER * Assessment & Plan Note - Makayla Ramos MD - 04/16/2020 8:17 AM MILK TESTER Associated Problem(s): Pseudophakia of both eyes Nearing visual significance May need CEIOL/MIGS soon, but monitor for now TESTER documented in this encounter Plan of Treatment [...] 0.85 0.85-9 Macula Normal Normal Care Teams Lead Recreation Assistant Relationship Specialty Start Date End Date Elpidio Serrato MD PCP - General Internal Medicine 06/09/18 documented as of this encounter
--- OUTSIDE RECORDS SUMMARY | 2024-05-20 07:58 | XMS_ITS | Encounter Summary ---
Author Organization [facility] Address [address] [place] [address] Phone Care Team Providers Care Admissions Specialist Name Role Phone Elpidio Serrato MD Primary Care Provider [phone] Reason for Visit * Reason Onset Date Comments Noemi 12/31/2019 Encounter Details Date Type Department Care Team (Late st Contact Info) Description 12/31/2019 Telephone [facility] Endocrinology Metabolism and Lipid [address] [facility] Advanced Medicine 13th [place] [address] [place] [address] Aide Wolfe CMA [place] Social History Tobacco Use Types Packs/Day Years Used Date Smoking Tobacco: Never Smokeless Tobacco: Never Comments Unknown Sex and Gender Information Value Date Recorded Sex Assigned at Not on file Legal Sex Female 3:59 AM LIBRARY CUSTOMER SERVICE CLERK Gender Identity Female 05/13/2021 4:21 PM LIBRARY CUSTOMER SERVICE CLERK Sexual Orientation Not on file documented as of this encounter Miscellaneous Notes * Telephone Encounter - Aide Wolfe CMA - 12/31/2019 2:46 PM CDT DWO for medical supplies sent to Noemi at [phone]. documented in this encounter Plan of Treatment Not on file documented as of this encounter Visit Diagnoses Not on filedocumented in this encounter Care Teams Admissions Specialist Relationship Specialty Start Date End Date Elpidio Serrato MD PCP - General Internal Medicine 06/09/18 documented as of this encounter
--- OUTSIDE RECORDS SUMMARY | 2024-05-20 07:58 | XMS_ITS | Encounter Summary ---
Author Organization [facility] Address [address] [place] [address] Phone Care Team Providers Care Global Creative Chairman Name Role Phone Elpidio Serrato MD Primary Care Provider [phone] Encounter Details Date Type Department Care Team (Late st Contact Info) Description 03/31/2019 3:40 PM MUSHROOM PACKER Lab 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, with long-term current use of insulin, unspecified laterality (CMS/HCC) Social History Tobacco Use Types Packs/Day Years Used Date Smoking Tobacco: Never Smokeless Tobacco: Never Comments Unknown Sex and Gender Information Value Date Recorded Sex Assigned at Not on file Legal Sex Female 3:59 AM MUSHROOM PACKER Gender Identity Female 05/13/2021 4:21 PM MUSHROOM PACKER Sexual Orientation Not on file documented as of this encounter Plan of Treatment Not on file documented as of this encounter Procedures Procedure Name Priority Date/Time Associated Diagnosis Comments CBC WITH AUTO DIFFERENTIAL Routine 03/31/2019 3:37 PM MUSHROOM PACKER 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, with long-term current use of insulin, unspecified laterality (CMS/HCC) ALBUMIN CREATININE RATIO, URINE Routine 03/31/2019 3:37 PM MUSHROOM PACKER 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, with long-term current use of insulin, unspecified laterality (CMS/HCC) TSH Routine 03/31/2019 3:37 PM MUSHROOM PACKER 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, with long-term current use of insulin, unspecified laterality (CMS/HCC) LIPID PANEL Routine 03/31/2019 3:37 PM MUSHROOM PACKER 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 GUAMANIAN 53.8(L) >60.0 mL/min/1.7 3 m2 [facility] eGFR 62.3 >60.0 mL/min/1.7 3 m2 [facility] Blood specimen (specimen) 03/31/2019 3:37 PM MUSHROOM PACKER 03/31/2019 4:04 PM MUSHROOM PACKER us Merna Bell MD LAB BLOOD ORDERABLES Final Re sult [facility] * CBC with auto differential (03/31/2019 3:37 PM MUSHROOM PACKER) White Blood Count 9.8 3.6 - 11.2 [...] [facility] Blood specimen (specimen) 03/31/2019 3:37 PM MUSHROOM PACKER 03/31/2019 4:04 PM MUSHROOM PACKER Merna Bell MD LAB BLOOD ORDERABLES Final Re sult [facility] * TSH (03/31/2019 3:37 PM MUSHROOM PACKER) TSH (Thyrotropin) 2.62 0.27 - 4.20 uIU/mL [facility] Comment:* Please note update d reference range for TSH effective 07/17/18 * Blood specimen (specimen) 03/31/2019 3:37 PM MUSHROOM PACKER 03/31/2019 4:04 PM MUSHROOM PACKER Merna Bell MD LAB BLOOD ORDERABLES Final Re sult Performing Organization Address City/[facility] Co de Phone Number [facility] * (ABNORMAL) Lipid panel (03/31/2019 3:37 PM MUSHROOM PACKER) Triglycerides 186(H) 0 - 149 mg/dL [facility] [...] mg/dL Blood specimen (specimen) 03/31/2019 3:37 PM MUSHROOM PACKER 03/31/2019 4:04 PM MUSHROOM PACKER Merna Bell MD LAB BLOOD ORDERABLES Final Re sult Performing Organization Address [facility] de Phone Number [facility] * (ABNORMAL) Albumin Creatinine Ratio, Urine (03/31/2019 3:37 PM MUSHROOM PACKER) Microalb, Ur 27.3(H) 0.0 - 22.9 mg/L [facility] Random Urine Creatinine 271.8 mg/dL [facility] Microalb/Creat Ratio 10.0 0.0 - 29.9 mg/g [facility] Urine 03/31/2019 3:37 PM MUSHROOM PACKER 03/31/2019 4:04 PM MUSHROOM PACKER Merna Bell MD LAB URINE ORDERABLES Final Re sult Performing Organization Address City/State/[facility] Co de Phone Number [facility] documented in this encounter Visit Diagnoses Diagnosis 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
--- OUTSIDE RECORDS SUMMARY | 2024-05-20 07:58 | XMS_ITS | Encounter Summary ---
Author Organization [facility] Address [address] [place] [address] Phone Care Team Providers Care Print Producer Name Role Phone Elpidio Serrato MD Primary Care Provider [phone] Reason for Referral * (Routine) - Closed Specialty Diagnoses / Procedures Referred By Contac t Referred To Contact Diagnoses Primary open angle glaucoma (POAG) of both eyes, moderate stage Procedures OCT, Optic Nerve - OU - Both Eyes Makayla Ramos MD [address] [place] [address] Phone: tel: fax: [facility] (All Locations) Referral ID Status Reason Start Date Expiration Date Visits Re quested Visits Authorized [id number] Closed 01/15/2020 02/13/2021 1 1 * (Routine) - Closed Specialty Diagnoses / Procedures Referred By Contqi t Referred To Contact Diagnoses Primary open angle glaucoma (POAG) of both eyes, moderate stage Procedures Forrest Visual Field - OU - Both Eyes Makayla Ramos MD [address] [place] [address] Phone: tel: fax: [facility] (All Locations) Referral ID Status Reason Start Date Expiration Date Visits Re quested Visits Authorized [id number] Closed 01/15/2020 02/13/2021 1 1 Encounter Details Date Type Department Care Team (Late st Contact Info) Description 01/15/[address] [facility] Ophthalmology [address] [facility] [place] [address] Makayla Ramos MD [address] [place] [address] Primary open angle glaucoma (POAG) of both eyes, moderate stage (Primary Dx) Social History Tobacco Use Types Packs/Day Years Used Date Smoking Tobacco: Never Smokeless Tobacco: Never Comments Unknown Sex and Gender Information Value Date Recorded Sex Assigned at Not on file Legal Sex Female 3:59 AM REAL ESTATE INVESTOR Gender Identity Female 05/13/2021 4:21 PM REAL ESTATE INVESTOR Sexual Orientation Not on file documented as [...] stage documented in this encounter Care Teams Print Producer Relationship Specialty Start Date End Date Elpidio Serrato MD PCP - General Internal Medicine 06/09/18 documented as of this encounter
--- OUTSIDE RECORDS SUMMARY | 2024-05-20 07:58 | XMS_ITS | Encounter Summary ---
Author Organization [facility] Address [address] [place] [address] Phone Care Team Providers Care Egg Buyer Name Role Phone Elpidio Serrato MD Primary Care Provider [phone] Encounter Details Date Type Department Care Team (Late st Contact Info) Description 04/23/2019 9:40 AM CHEMISTRY TUTOR Imaging Exam [facility] Ophthalmology [address] [facility] [address] [place] [address] Primary open angle glaucoma (POAG) of both eyes, moderate stage Social History Tobacco Use Types Packs/Day Years Used Date Smoking Tobacco: Never Smokeless Tobacco: Never Comments Unknown Sex and Gender Information Value Date Recorded Sex Assigned at Not on file Legal Sex Female 3:59 AM CHEMISTRY TUTOR Gender Identity Female 05/13/2021 4:21 PM CHEMISTRY TUTOR Sexual Orientation Not on file documented as of this encounter Plan of Treatment Not on file documented as of this encounter Procedures Procedure Name Priority Date/Time Associated Diagnosis Comments OCT, OPTIC NERVE - OU - BOTH EYES Routine 04/23/2019 10:10 AM CHEMISTRY TUTOR Primary open angle glaucoma (POAG) of both eyes, moderate stage FORREST VISUAL FIELD - OU - BOTH EYES Routine 04/23/2019 10:10 AM CHEMISTRY TUTOR Primary open angle glaucoma (POAG) of both eyes, moderate stage documented in this encounter Results * OCT, Optic Nerve - OU - Both Eyes (04/23/2019 10:10 AM CHEMISTRY TUTOR) RNFL OS 64 micrometers RNFL OD 64 micrometers Anatomical Region Laterality Modality Head Optical Coherenc e Tomography Narrative 04/23/2019 10:40 AM CHEMISTRY TUTOR Right Eye Reliability was good. Temporal thickness [...] OU - Both Eyes (04/23/2019 10:10 AM CHEMISTRY TUTOR) Mean Deviation OS -1.79 dB Mean Deviation OD -3.11 dB Pattern Deviation OS 3.59 dB Pattern Deviation OD 7.40 dB Anatomical Region Laterality Modality Head Visual Field Narrative 04/23/2019 10:38 AM CHEMISTRY TUTOR Right Eye Fixation was good. Cooperation was [...] stage documented in this encounter Care Teams Egg Buyer Relationship Specialty Start Date End Date Elpidio Serrato MD PCP - General Internal Medicine 06/09/18 documented as of this encounter
--- OUTSIDE RECORDS SUMMARY | 2024-05-20 07:58 | XMS_ITS | Encounter Summary ---
Author Organization [facility] Address [address] [place] [address] Phone Care Team Providers Care Enterprise Systems Manager Name Role Phone Elpidio Serrato MD Primary Care Provider [phone] Reason for Visit * Reason Onset Date Comments CMN 12/28/2019 [employer] Encounter Details Date Type Department Care Team (Late st Contact Info) Description 12/28/2019 Telephone [facility] Endocrinology Metabolism and Lipid [address] [facility] Advanced Medicine 13th [place] [address] [place] [address] Malika Carter RN CMN ([employer]) Social History Tobacco Use Types Packs/Day Years Used Date Smoking Tobacco: Never Smokeless Tobacco: Never Comments Unknown Sex and Gender Information Value Date Recorded Sex Assigned at Not on file Legal Sex Female 3:59 AM STATIONARY PLANT OPERATORS Gender Identity Female 05/13/2021 4:21 PM STATIONARY PLANT OPERATORS Sexual Orientation Not on file documented as of this encounter Miscellaneous Notes * Telephone Encounter - Malika Carter RN - 12/28/2019 11:47 AM CDT CMN from [employer] completed and placed with chart note in Dr. Bell's folder for signature. documented in this encounter Plan of Treatment Not on file documented as of this encounter Visit Diagnoses Not on filedocumented in this encounter Care Teams Enterprise Systems Manager Relationship Specialty Start Date End Date Elpidio Serrato MD PCP - General Internal Medicine 06/09/18 documented as of this encounter
--- OUTSIDE RECORDS SUMMARY | 2024-05-20 07:58 | XMS_ITS | Encounter Summary ---
Author Organization [facility] Healthcare Address [address] [place] [address] Care Team Providers Care Business Operations Coordinator Name Role Phone Elpidio Serrato MD Primary Care Provider [phone] Encounter Details Date Type Department Care Team (Late st Contact Info) Description 07/13/2020 9:50 AM FORM SETTER HELPER Lab [facility] Advanced Medicine [facility] Advanced Medicine ([facility]) [address] [place] [phone] Merna Bell MD [address] [facility] [address] [place], [place] [id number] Type 2 diabetes mellitus with moderate nonproliferative [...] on file Legal Sex Female 3:59 AM FORM SETTER HELPER Gender Identity Female 05/13/2021 4:21 PM FORM SETTER HELPER Sexual Orientation Not on file documented as of this encounter Discharge Disposition Disposition Code Departure Means Destination Discharge to home or self care documented in this encounter Plan of Treatment Not on file documented as of this encounter Procedures Procedure Name Priority Date/Time Associated Diagnosis Comments THYROID FUNCTION CASCADE Routine 07/13/2020 9:40 AM FORM SETTER HELPER Vitamin D deficiency ALBUMIN CREATININE RATIO, URINE Routine 07/13/2020 9:40 AM FORM SETTER HELPER 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, with long-term current use of insulin, unspecified laterality (CMS/HCC) PTH Routine 07/13/2020 9:40 AM FORM SETTER HELPER Vitamin D deficiency HEMOGLOBIN A1C Routine 07/13/2020 9:40 AM FORM SETTER HELPER 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, with long-term current use of insulin, unspecified laterality (CMS/HCC) LIPID PANEL Routine 07/13/2020 9:40 AM FORM SETTER HELPER Mixed hyperlipidemia COMPREHENSIVE METABOLIC PANEL Routine 07/13/2020 9:40 AM FORM SETTER HELPER 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 Current interpretive data was last revised 2018. Creatinine Ur 103.2 mg/dL [facility] Comment: Interpretive Data No reference range established. Current interpretive data was last revised 2018. Albumin Creatinine Ratio, Ur <12 1 - 29 mg/g [facility] Urine 07/13/2020 9:40 AM FORM SETTER HELPER 07/13/2020 10:06 AM FORM SETTER HELPER us Merna Bell MD LAB URINE ORDERABLES Final Re sult [facility] [address] [facility] Department [place] [address] * TSH reflex to free T4 (07/13/2020 9:40 AM FORM SETTER HELPER) TSH 0.97 0.30 - 4.20 mcIUnit/mL [facility] Blood specimen (specimen) 07/13/2020 9:40 AM FORM SETTER HELPER 07/13/2020 10:06 AM FORM SETTER HELPER Merna Bell MD LAB BLOOD ORDERABLES Final Re sult Performing Organization Address [facility] de Phone Number [facility] [place] [address] * (ABNORMAL) PTH (07/13/2020 9:40 AM FORM SETTER HELPER) PTH 83(H) 15 - 65 pg/mL [facility] Blood specimen (specimen) 07/13/2020 9:40 AM FORM SETTER HELPER 07/13/2020 10:06 AM FORM SETTER HELPER Merna Bell MD LAB BLOOD ORDERABLES Final Re sult Performing Organization Address [facility] de Phone Number [facility] [place] [address] * (ABNORMAL) Lipid panel (07/13/2020 9:40 AM FORM SETTER HELPER) Cholesterol 158 30 - 199 mg/dL [facility] Comment: Interpretive Data Ages < or = [...] revised on 2017. Triglycerides 214(H) <=149 mg/dL [facility] Comment: Interpretive Data Ages < [...] revised on 2017. HDL 41 >=40 mg/dL [facility] Comment: Interpretive Data Ages < [...] 2017. LDL, calculated 74 <=129 mg/dL [facility] Comment: Interpretive Data Ages < [...] revised on 2017. Non-HDL Cholesterol 117 mg/dL [facility] Comment: Interpretive Data Ages < or = [...] last revised on 2017. Chol/HDL ratio 4 [facility] Blood specimen (specimen) 07/13/2020 9:40 AM FORM SETTER HELPER 07/13/2020 10:06 AM FORM SETTER HELPER us Merna Bell MD LAB BLOOD ORDERABLES Final Re sult [facility] Department [place] [address] * (ABNORMAL) Comprehensive metabolic panel (07/13/2020 9:40 AM FORM SETTER HELPER) Sodium 138 135 - 145 mmol/L [facility] Potassium, pl 5.4(H) 3.3 - 4.9 mmol/L [facility] Chloride 107 97 - 110 mmol/L [facility] CO2 23 22 - 32 mmol/L [facility] Anion gap 8 2 - 15 mmol/L [facility] BUN 47(H) 8 - 25 mg/dL [facility] Creatinine 1.27(H) 0.60 - 1.10 mg/dL [facility] Glucose 184 70 - 199 mg/dL [facility] Comment: Interpretive Data Fasting glucose >/= 126 [...] 2017. Calcium 9.6 8.5 - 10.3 mg/dL [facility] Bilirubin, total 0.2 0.1 - 1.2 mg/dL [facility] Protein, pl 7.5 6.5 - 8.5 g/dL [facility] Albumin 4.4 3.5 - 5.0 g/dL [facility] Alk phos 87 40 - 130 Units/L [facility] ALT 17 7 - 45 Units/L [facility] AST 25 10 - 45 Units/L [facility] Blood specimen (specimen) 07/13/2020 9:40 AM FORM SETTER HELPER 07/13/2020 10:06 AM FORM SETTER HELPER Merna Bell MD LAB BLOOD ORDERABLES Final Re sult [facility] Department of Laboratories [place], [place] [id number] * (ABNORMAL) Hemoglobin A1c (07/13/2020 9:40 AM FORM SETTER HELPER) Hgb A1C 6.8(H) 4.0 - 5.6 % [facility] Estimated Average Glucose 148 mg/dL [facility] Comment: The ADA recommends reporting an estimated Average Glucose (eAG) with all Hemoglobin A1c results using the equation derived from a study of 507 normal and diabetic adults. ??Minority populations were underrepresented and children were not included. ?? (Diabetes Care 31:0173-5836, 2008). ??The eAG is not equivalent to a fasting glucose. 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
--- OUTSIDE RECORDS SUMMARY | 2024-05-20 07:58 | XMS_ITS | Encounter Summary ---
Author Organization [facility] Address [address] [place] [address] Phone Care Team Providers Care Christian Counselor Name Role Phone Elpidio Serrato MD Primary Care Provider Encounter Details Date Type Department Care Team (Late st Contact Info) Description 07/03/2019 8:15 AM BOILER/CHILLER TECHNICIAN Office Visit [facility] Ophthalmology [address] [place] [address] [place] [phone] Niranjan Thomas MD [address] [facility] [address] [place], [place] [id number] Primary open angle glaucoma (POAG) of both eyes, moderate stage (Primary Dx); Nuclear sclerotic cataract of both eyes Social History Tobacco Use Types Packs/Day Years Used Date Smoking Tobacco: Never Smokeless Tobacco: Never Comments Unknown Sex and Gender Information Value Date Recorded Sex Assigned at Not on file Legal Sex Female 3:59 AM BOILER/CHILLER TECHNICIAN Gender Identity Female 05/13/2021 4:21 PM BOILER/CHILLER TECHNICIAN Sexual Orientation Not on file documented as of this encounter Patient Instructions * Patient Instructions* Niranjan Thomas MD - 07/03/2019 8:15 AM BOILER/CHILLER TECHNICIAN ER/CHILLER TECHNICIAN documented in this encounter Progress Notes [...] IOP applanation and HANS, for IOP check. ER/CHILLER TECHNICIAN documented in this encounter Miscellaneous Notes * Assessment & Plan Note - Sandy Aguirre - 07/02/2019 11:12 AM CSTAssociated Problem(s): Pseudophakia of both eyes NVS. Continue to Monitor. I am scribing in the presence of Dr. Thomas on 07/03/2019, HALLEY Ramos. I have examined the patient and agree with the resident/fellow's findings and plan as documented. Niranjan Thomas MD ER/CHILLER TECHNICIAN ER/CHILLER TECHNICIAN ER/CHILLER TECHNICIAN * Assessment & Plan Note - Sandy [...] Drops: Combigan BID OU Latanoprost QHS OD ER/CHILLER TECHNICIAN ER/CHILLER TECHNICIAN ER/CHILLER TECHNICIAN documented in this encounter Plan of [...] PPA C/D Ratio 0.85 0.85-9 Care Teams Christian Counselor Relationship Specialty Start Date End Date Elpidio Serrato MD PCP - General Internal Medicine 06/09/18 documented as of this encounter
--- OUTSIDE RECORDS SUMMARY | 2024-05-20 07:58 | XMS_ITS | Encounter Summary ---
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 GUARD documented in this encounter Plan of Treatment [...] documented as of this encounter Care Teams Seismograph Computer Relationship Specialty Start Date End Date Elpidio Serrato MD PCP - General Internal Medicine 06/09/18 documented as of this encounter
--- OUTSIDE RECORDS SUMMARY | 2024-05-20 07:58 | XMS_ITS | Encounter Summary ---
Author Organization [facility] Healthcare Address [address] [place] [address] Care Team Providers Care Global Logistics Analyst Name Role Phone Elpidio Serrato MD Primary Care Provider [phone] Encounter Details Date Type Department Care Team (Late st Contact Info) Description 01/25/2020 11:00 AM CDT Lab [facility] Advanced Medicine [facility] Advanced Medicine ([facility]) [address] [place] [phone] [place] [address] [place] [address] [address], [place] [id number] Type 2 diabetes mellitus (CMS/HCC); Acquired hypothyroidism; Mixed hyperlipidemia Discharge Disposition: Discharge to home or self care Social History Tobacco Use Types Packs/Day Years Used Date Smoking Tobacco: Never Smokeless Tobacco: Never Comments Unknown Sex and Gender Information Value Date Recorded Sex Assigned at Not on file Legal Sex Female 3:59 AM FOREST SUPERVISOR Gender Identity Female 05/13/2021 4:21 PM FOREST SUPERVISOR Sexual Orientation Not on file documented [...] 9:22 AM CDT Type 2 diabetes mellitus ([facility]/HCC) ALBUMIN CREATININE RATIO, URINE Routine 01/25/2020 9:22 AM CDT Type 2 diabetes mellitus ([facility]/HCC) HEMOGLOBIN A1C Routine 01/25/2020 9:22 AM CDT Type 2 diabetes mellitus ([facility]/HCC) LIPID PANEL Routine 01/25/2020 9:22 AM CDT Mixed hyperlipidemia COMPREHENSIVE METABOLIC PANEL Routine 01/25/2020 9:22 AM CDT Type 2 diabetes mellitus ([facility]/HCC) documented in this encounter Results * Differential, auto (01/25/2020 9:22 AM CDT) Neutrophil abs 4.7 1.7 - 6.5 K/cumm [facility] Imm gran abs 0.0 0.0 - 0.1 K/cumm [facility] Lymphocyte abs 1.8 0.8 - 3.3 K/cumm [facility] Monocyte abs 0.6 0.2 - 0.8 K/cumm [facility] Eosinophil abs 0.1 0.0 - 0.5 K/cumm [facility] Basophil abs 0.0 0.0 - 0.1 K/cumm [facility] Neutrophil pct 64.3 % [facility] Comment: Interpretive Data Percent cell count reference ranges are not reported, since discordance with absolute values may lead to misinterpretation of CBC data. Current Interpretive Data was last revised on 2017. Imm gran pct 0.3 % [facility] Comment: Interpretive Data Percent cell count reference ranges are not reported, since discordance with absolute values may lead to misinterpretation of CBC data. Current Interpretive Data was last revised on 2017. Lymphocyte pct 25.5 % [facility] Comment: Interpretive Data Percent cell count reference ranges are not reported, since discordance with absolute values may lead to misinterpretation of CBC data. Current Interpretive Data was last revised on 2017. Monocyte pct 7.8 % [facility] Comment: Interpretive Data Percent cell count reference ranges are not reported, since discordance with absolute values may lead to misinterpretation of CBC data. Current Interpretive Data was last revised on 2017. Eosinophil pct 1.5 % [facility] Comment: Interpretive Data Percent cell count reference ranges are not reported, since discordance with absolute values may lead to misinterpretation of CBC data. Current Interpretive Data was last revised on 2017. Basophil pct 0.6 % [facility] Comment: Interpretive Data Percent cell count reference ranges are not reported, since discordance with absolute values may lead to misinterpretation of CBC data. Current Interpretive Data was last revised on 2017. Blood specimen (specimen) 01/25/2020 9:22 AM CDT 01/25/2020 9:46 AM CDT us Merna Bell MD LAB BLOOD ORDERABLES Final Re sult [facility] One [facility] Department [place] [address] * CBC with auto differential (01/25/2020 9:22 AM CDT) WBC 7.2 3.8 - 9.9 K/cumm [facility] Hgb 12.1 11.9 - 15.5 g/dL [facility] Hct 37.2 35.6 - 45.5 % [facility] Plt 206 150 - 400 K/cumm [facility] MPV 10.8 9.1 - 12.3 fL [facility] RBC 4.07 3.90 - 5.20 M/cumm [facility] MCV 91.4 81.3 - 96.4 fL [facility] MCH 29.7 27.1 - 33.3 pg [facility] MCHC 32.5 32.3 - 35.7 g/dL [facility] RDW CV 12.6 11.1 - 14.9 % [facility] RDW SD 42.0 35.7 - 48.1 fL [facility] NRBC abs 0.00 0.00 - 0.01 K/cumm [facility] Blood specimen (specimen) 01/25/2020 9:22 AM CDT 01/25/2020 9:46 AM CDT us Merna Bell MD LAB BLOOD ORDERABLES Final Re sult [facility] One [facility] Department [place] [address] * (ABNORMAL) Lipid panel (01/25/2020 9:22 AM CDT) Cholesterol 171 30 - 199 mg/dL [facility] Comment: Interpretive Data Ages < [...] revised on 2017. Triglycerides 167(H) <=149 mg/dL [facility] Comment: Interpretive Data Ages < [...] on 2017. HDL 48 >=40 mg/dL [facility] Comment: Interpretive Data Ages [...] 2017. LDL, calculated 90 <=129 mg/dL [facility] Comment: Interpretive Data Ages [...] on 2017. Non-HDL Cholesterol 123 mg/dL [facility] Comment: Interpretive Data Ages [...] last revised on 2017. Chol/HDL ratio 4 [facility] Blood specimen (specimen) 01/25/2020 9:22 AM CDT 01/25/2020 9:46 AM CDT Merna Bell MD LAB BLOOD ORDERABLES Final Re sult Performing Organization Address [facility] de Phone Number [facility] [employer] [place] [address] * (ABNORMAL) Hemoglobin A1c (01/25/2020 9:22 AM CDT) Hgb A1C 7.2(H) 4.0 - 5.6 % [facility] Estimated Average Glucose 160 mg/dL [facility] Comment: The ADA recommends reporting an estimated Average Glucose (eAG) with all Hemoglobin A1c results using the equation derived from a study of 507 normal and diabetic adults. ??Minority populations were underrepresented and children were not included. ?? (Diabetes Care 31:3721-4447, 2008). ??The eAG is not equivalent to a fasting glucose. Blood specimen (specimen) 01/25/2020 9:22 AM CDT 01/25/2020 9:46 AM CDT Merna Bell MD LAB BLOOD ORDERABLES Final Re sult Performing Organization Address [facility] de Phone Number [facility] [employer] [place] [address] * TSH reflex to free T4 (01/25/2020 9:22 AM CDT) Pathologist [facility] TSH 1.98 0.30 - 4.20 mcIUnit/mL [facility] Blood specimen (specimen) 01/25/2020 9:22 AM CDT 01/25/2020 9:46 AM CDT Merna Bell MD LAB BLOOD ORDERABLES Final Re sult Performing Organization Address [facility] de Phone Number [facility] Department [place] [address] * Albumin Creatinine Ratio, Urine (01/25/2020 9:22 AM CDT) [facility] Albumin Ur <12.0 mg/L [facility] Comment: Interpretive Data No reference range established. Current interpretive data was last revised 2018. Creatinine Ur 107.9 mg/dL [facility] Comment: Interpretive Data No reference range established. Current interpretive data was last revised 2018. Albumin Creatinine Ratio, Ur <11 1 - 29 mg/g [facility] Urine 01/25/2020 9:22 AM CDT 01/25/2020 9:46 AM CDT Merna Bell MD LAB URINE ORDERABLES Final Re sult Performing Organization Address [facility] de Phone Number [facility] Department [place] [address] * (ABNORMAL) Comprehensive metabolic panel (01/25/2020 9:22 AM CDT) [facility] Sodium 142 135 - 145 mmol/L [facility] Potassium, pl 5.8(H) 3.3 - 4.9 mmol/L [facility] Comment:Hemolyzed; Potassium value may be falsely elevated by as much as 0.3-0.5 mmol/L. Suggest redraw and reanalysis. Chloride 110 97 - 110 mmol/L [facility] CO2 23 22 - 32 mmol/L [facility] Anion gap 9 2 - 15 mmol/L [facility] BUN 33(H) 8 - 25 mg/dL [facility] Creatinine 1.09 0.60 - 1.10 mg/dL [facility] Glucose 163 70 - 199 mg/dL [facility] Comment: Interpretive Data Fasting glucose [...] 2017. Calcium 9.4 8.5 - 10.3 mg/dL [facility] Bilirubin, total 0.3 0.1 - 1.2 mg/dL [facility] Protein, pl 7.1 6.5 - 8.5 g/dL [facility] Albumin 4.2 3.5 - 5.0 g/dL [facility] Alk phos 73 40 - 130 Units/L [facility] ALT 17 7 - 45 Units/L [facility] AST 26 10 - 45 Units/L [facility] Comment:Hemolyzed; result ma y be falsely elevated Blood specimen (specimen) 01/25/2020 9:22 AM CDT 01/25/2020 9:46 AM CDT us Merna Bell MD LAB BLOOD ORDERABLES Final Re sult [facility] One [facility] [place] [address] documented in this encounter Visit Diagnoses Diagnosis Type 2 diabetes mellitus (HCC) Acquired hypothyroidism Unspecified hypothyroidism Mixed hyperlipidemia documented in this encounter Care Teams Global Logistics Analyst Relationship Specialty Start Date End Date Elpidio Serrato MD PCP - General Internal Medicine 1/28/19 documented as of this encounter
--- OUTSIDE RECORDS SUMMARY | 2024-05-20 07:58 | XMS_ITS | Encounter Summary ---
Author Organization [facility] Address [address] [place] [address] Phone Care Team Providers Care Development Assistant Name Role Phone Elpidio Serrato MD Primary Care Provider [phone] Reason for Visit * Reason Onset Date Comments [facility] 12/31/2019 SWO Encounter Details Date Type Department Care Team (Late st Contact Info) Description 12/31/2019 Telephone [facility] Endocrinology Metabolism and Lipid [address] [facility] Advanced Medicine 13th [place] [address] [place] [address] Gerson Cuadra CMA [facility] (MILEO) Social History Tobacco Use Types Packs/Day Years Used Date Smoking Tobacco: Never Smokeless Tobacco: Never Comments Unknown Sex and Gender Information Value Date Recorded Sex Assigned at Not on file Legal Sex Female 3:59 AM TOOLS PROGRAMMER Gender Identity Female 05/13/2021 4:21 PM TOOLS PROGRAMMER Sexual Orientation Not on file documented as of this encounter Miscellaneous Notes * Telephone Encounter - Gerson Cuadra CMA - 12/31/2019 12:56 PM CDT SWO and chart note in providers box awaiting signature documented in this encounter Plan of Treatment Not on file documented as of this encounter Visit Diagnoses Not on filedocumented in this encounter Care Teams Development Assistant Relationship Specialty Start Date End Date Elpidio Serrato MD PCP - General Internal Medicine 06/09/18 documented as of this encounter
--- OUTSIDE RECORDS SUMMARY | 2024-05-20 07:58 | XMS_ITS | Encounter Summary ---
Author Organization [facility] [employer] [facility] Address [address] [place] [address] Phone Care Team Providers Care Salesperson Surgical Appliances Name Role Phone Elpidio Serrato MD Primary Care Provider [phone] Encounter Details Date Type Department Care Team (Late st Contact Info) Description 02/08/2020 9:40 AM CDT Telemedicine [facility] Endocrinology Metabolism and Lipid [address] [facility] 13th [place] [address] [place] [address] Merna Bell MD [address] [facility] [address] [place], [place] [id number] Type 2 diabetes mellitus (CMS/HCC) (Primary Dx); Acquired hypothyroidism; Mixed hyperlipidemia; Vitamin D deficiency Social History Tobacco Use Types Packs/Day Years Used Date Smoking Tobacco: Never Smokeless Tobacco: Never Comments Unknown Sex and Gender Information Value Date Recorded Sex Assigned at Not on file Legal Sex Female 3:59 AM FACILITY SUPERVISOR Gender Identity Female 05/13/2021 4:21 PM FACILITY SUPERVISOR Sexual Orientation Not on file documented [...] patient was [facility] The patient visit started at 9:45 and ended at 10:08. Total encounter time was 35 minutes, which includes time spent today on pre charting, the patient encounter, and post charting. The patient: has been informed that the visit may not be secure and acknowledged the information. The option of participating in a telephone or video visit during the [facility] [place] [address] emergencywas explained to them. After being given [...] LDLDIRECT 102 03/31/2019 Type 2 diabetes mellitus ([facility]) Glucose control is stable. Pt does [...] documented as of this encounter Care Teams Salesperson Surgical Appliances Relationship Specialty Start Date End Date Elpidio Serrato MD PCP - General Internal Medicine 06/09/18 documented as of this encounter
--- OUTSIDE RECORDS SUMMARY | 2024-05-20 07:58 | XMS_ITS | Encounter Summary ---
Author Organization [facility] Address [address] [place] [address] Phone Care Team Providers Care Clinical Applications Manager Name Role Phone Elpidio Serrato MD Primary Care Provider [phone] Reason for Referral * (Routine) - Closed Specialty Diagnoses / Procedures Referred By Constantino alvarado Referred To Contact Diagnoses Primary open angle glaucoma (POAG) of both eyes, moderate stage Procedures Laser Trabeculoplasty Selective - OD - Right Eye Niranjan Thomas MD [address] [place] [address] Phone: tel: fax: [facility] (All Locations) Referral ID Status Reason Start Date Expiration Date Visits Re quested Visits Authorized [id number] Closed 05/28/2019 12/06/2020 1 1 NCIAL SERVICES DIRECTOR Reason for Visit * Procedure (Routine) - Closed Specialty Diagnoses / Procedures Referred By Constantino alvarado Referred To Contact Diagnoses Primary open angle glaucoma (POAG) of both eyes, moderate stage Procedures Laser Trabeculoplasty Selective - [place] [address] [place] [address] Phone: tel: fax: [facility] (All Locations) Referral ID Status Reason Start Date Expiration Date Visits Re quested Visits Authorized [id number] Closed 04/23/2019 11/01/2020 1 1 Encounter Details Date Type Department Care Team (Late st Contact Info) Description 05/28/2019 8:15 AM FINANCIAL SERVICES DIRECTOR Clinical Support [facility] Ophthalmology [address] [facility] [place] [address] Niranjan Thomas MD [address] [facility] [address] [place] [address] Social History Tobacco Use Types Packs/Day Years Used Date Smoking Tobacco: Never Smokeless Tobacco: Never Comments Unknown Sex and Gender Information Value Date Recorded Sex Assigned at Not on file Legal Sex Female 3:59 AM FINANCIAL SERVICES DIRECTOR Gender Identity Female 05/13/2021 4:21 PM FINANCIAL SERVICES DIRECTOR Sexual Orientation Not on file documented as of this encounter Patient Instructions * Patient Instructions* Michelle Soni - 05/28/2019 8:15 AM FINANCIAL SERVICES DIRECTOR NCIAL SERVICES DIRECTOR documented in this encounter Ordered Prescriptions Prescription [...] - RIGHT EYE Routine 05/28/2019 11:14 AM FINANCIAL SERVICES DIRECTOR Primary open angle glaucoma (POAG) of both eyes, moderate stage documented in this encounter Results * Laser Trabeculoplasty Selective - OD - Right Eye (05/28/2019 11:14 AM FINANCIAL SERVICES DIRECTOR) Anatomical Region Laterality Modality Head Laser Room Narrative 05/28/2019 11:14 AM FINANCIAL SERVICES DIRECTOR Time Out Informed consent was obtained after [...] Notes Ketorolac sent into patient's pharmacy Niranjan hTomas MD OPHTH CLINIC PROCEDURES Final Result documented in this encounter Visit Diagnoses Diagnosis Primary open angle glaucoma (POAG) of both eyes, moderate stage- Primary documented in this encounter Orders Imaging Orders Without Results Count Last Order ed Date First Ordered Date LASER TRABECULOPLASTY SELECT SEDA - OD - RIGHT EYE 1 05/28/2019 documented in this encounter Care Teams Clinical Applications Manager Relationship Specialty Start Date End Date Elpidio Serrato MD PCP - General Internal Medicine 06/09/18 documented as of this encounter
--- OUTSIDE RECORDS SUMMARY | 2024-05-20 07:58 | XMS_ITS | Encounter Summary ---
Author Organization [facility] Address [address] [place] [address] Phone Care Team Providers Care Lease Buyer Name Role Phone Elpidio Serrato MD Primary Care Provider [phone] Reason for Visit * (Routine) - Closed Specialty Diagnoses / Procedures Referred By Constantino alvarado Referred To Contact Diagnoses Primary open angle glaucoma (POAG) of both eyes, moderate stage Procedures Forrest Visual Field - OU - Both Eyes Makayla Ramos MD [address] [place] [address] Phone: tel: fax: [facility] (All Locations) Referral ID Status Reason Start Date Expiration Date Visits Re quested Visits Authorized [id number] Closed 01/15/2020 02/13/2021 1 1 Encounter Details Date Type Department Care Team (Late st Contact Info) Description 01/25/2020 8:10 AM CDT Imaging Exam [facility] Ophthalmology [address] [facility] 6th [place] [address] Primary open angle glaucoma (POAG) of both eyes, moderate stage Social History Tobacco Use Types Packs/Day Years Used Date Smoking Tobacco: Never Smokeless Tobacco: Never Comments Unknown Sex and Gender Information Value Date Recorded Sex Assigned at Not on file Legal Sex Female 3:59 AM COBBLER SOLE Gender Identity Female 05/13/2021 4:21 PM COBBLER SOLE Sexual Orientation Not on file documented as [...] stage documented in this encounter Care Teams Lease Buyer Relationship Specialty Start Date End Date Elpidio Serrato MD PCP - General Internal Medicine 06/09/18 documented as of this encounter
--- OUTSIDE RECORDS SUMMARY | 2024-05-20 07:58 | XMS_ITS | Encounter Summary ---
Author Organization [facility] [employer] [facility] Address [address] [place] [address] Phone Care Team Providers Care Circular Clerk Name Role Phone Elpidio Serrato MD Primary Care Provider [phone] Reason for Visit * Reason Comments Osteoporosis * Diagnostic Imaging (Routine) - Closed Specialty Diagnoses / Procedures Referred By Contac t Referred To Contact Diagnoses Age-related osteoporosis without current pathological fracture Vitamin D deficiency Fracture Procedures Dexa Axial Skeleton Bone Density 1 or 2 Site Merna Bell MD Phone: tel: fax: [facility] (All Locations) Referral ID Status Reason Start Date Expiration Date Visits Re quested Visits Authorized [id number] Closed 06/13/2020 07/13/2021 1 1 Encounter Details Date Type Department Care Team (Latest Contact Info) Description 07/13/2020 10:10 AM CLEANING PROFESSIONAL Clinical Support [facility] 5th [place] [address] [place] [address] Age-related osteoporosis without current pathological fracture ; Vitamin D deficiency; Fracture; Age-related osteoporosis without current pathological fracture; Osteopenia of left hip; Post-menopausal Social History Tobacco Use Types Packs/Day Years Used Date Smoking Tobacco: Never Smokeless Tobacco: Never Comments Unknown Sex and Gender Information Value Date Recorded Sex Assigned at Not on file Legal Sex Female 3:59 AM CLEANING PROFESSIONAL Gender Identity Female 05/13/2021 4:21 PM CLEANING PROFESSIONAL Sexual Orientation Not on file documented as of this encounter Plan of Treatment Not on file documented as of this encounter Procedures Procedure Name Priority Date/Time Associated Diagnosis Comments DEXA AXIAL SKELETON BONE DENSITY 1 OR MORE SITES Schedule Routine, Read Routine (OP Routine) 07/13/2020 11:59 AM CLEANING PROFESSIONAL Age-related osteoporosis without current pathological fracture Vitamin D deficiency Fracture documented in this encounter Results * Dexa Axial Skeleton Bone Density 1 or 2 Site (07/13/2020 11:59 AM CLEANING PROFESSIONAL) Anatomical Region Laterality Modality Body N/A Radiographic Luba ging Narrative 07/17/2020 9:18 PM CLEANING PROFESSIONAL Patient Name: Isabelle Lutz Date of : 1950 Date of scan: 07/13/2020 Bone mineral density was performed on a [employer] Discovery Densitometer. ?? Machine Cross-calibration and Precision [...] and scan interpretation were performed by Shayna Potrillo M.D. who is certified by the International Society of Clinical Densitometry. [id number] us Merna Bell MD IMG DXA PROCEDURES Final Resu lt documented in this encounter Visit Diagnoses Diagnosis Age-related osteoporosis without current pathological fracture Vitamin D deficiency Fracture Closed fracture of unspecified bone Osteopenia of left hip Post-menopausal Asymptomatic postmenopausal status (age-related) (natural) documented in this encounter Care Teams Circular Clerk Relationship Specialty Start Date End Date Elpidio Serrato MD PCP - General Internal Medicine 06/09/18 documented as of this encounter
--- OUTSIDE RECORDS SUMMARY | 2024-05-20 07:58 | XMS_ITS | Encounter Summary ---
Author Organization [facility] Address [address] [place] [address] Phone Care Team Providers Care Head Of Design Name Role Phone Elpidio Serrato MD Primary Care Provider [phone] Encounter Details Date Type Department Care Team (Late st Contact Info) Description 12/04/2019 8:40 AM CDT Office Visit [facility] Ophthalmology [address] [facility] 6th Floor, [address] [facility] [place] [address] [place] [address] [place] [address] Nuclear sclerotic cataract of both eyes (Primary Dx); Primary open angle glaucoma (POAG) of both eyes, moderate stage; Type 2 diabetes mellitus (CMS/HCC) Social History Tobacco Use Types Packs/Day Years Used Date Smoking Tobacco: Never Smokeless Tobacco: Never Comments Unknown Sex and Gender Information Value Date Recorded Sex Assigned at Not on file Legal Sex Female 3:59 AM SILO MAN Gender Identity Female 05/13/2021 4:21 PM SILO MAN Sexual Orientation Not on file documented as [...] Glc 2 weeks. Type 2 diabetes mellitus ([facility]/HCC) Assessment & Plan: Last DFE 04/2019.Stressed BG control. Return approx 04/2020 for DFE Lab Results Component Value Date HGBA1C 7.3 03/31/2019 documented in this encounter Miscellaneous Notes * Assessment & Plan Note - Pratima Perez, OD - 12/05/2019 7:49 PM CDT Associated Problem(s): DM2 (diabetes mellitus, type 2) ([facility]) Last DFE 04/2019.Stressed BG control. Return approx [...] 0.85 0.85-9 Macula Normal Normal Care Teams Head Of Design Relationship Specialty Start Date End Date Elpidio Serrato MD PCP - General Internal Medicine 06/09/18 documented as of this encounter
--- OUTSIDE RECORDS SUMMARY | 2024-05-20 07:58 | XMS_ITS | Encounter Summary ---
Author Organization [facility] Address [address] [place] [address] Phone Care Team Providers Care Boulevard Glassware Replacer Name Role Phone Elpidio Serrato MD Primary Care Provider [phone] Reason for Visit * Reason Onset Date Comments Med Refill 02/12/2020 jardiance and oz empic Encounter Details Date Type Department Care Team (Late st Contact Info) Description 02/12/2020 Telephone [facility] Endocrinology Metabolism and Lipid [address] [facility] Advanced Medicine 13th [place] [address] [place] [address] Malika Carter RN Med Refill (jardiance and ozempic) Social History Tobacco Use Types Packs/Day Years Used Date Smoking Tobacco: Never Smokeless Tobacco: Never Comments Unknown Sex and Gender Information Value Date Recorded Sex Assigned at Not on file Legal Sex Female 3:59 AM MUSICAL PERFORMER Gender Identity Female 05/13/2021 4:21 PM MUSICAL PERFORMER Sexual Orientation Not on file documented as [...] is requesting letter to be sent to [facility] regarding necessity for Celebrex. [phone] (fax) documented in this encounter Plan of [...] documented as of this encounter Care Teams Boulevard Glassware Replacer Relationship Specialty Start Date End Date Elpidio Serrato MD PCP - General Internal Medicine 06/09/18 documented as of this encounter
--- OUTSIDE RECORDS SUMMARY | 2024-05-20 07:58 | XMS_ITS | Encounter Summary ---
Author Organization [facility] Address [address] [place] [address] Phone Care Team Providers Care Endband Sizer Name Role Phone Elpidio Serrato MD Primary Care Provider [phone] Encounter Details Date Type Department Care Team (Late st Contact Info) Description 04/20/2019 Orders Only [facility] Endocrinology Metabolism and Lipid [address] [facility] Advanced Medicine 5th [place] [address] [place] [address] Merna Bell MD [address] [facility] [address] [place] [address] Social History Tobacco Use Types Packs/Day Years Used Date Smoking Tobacco: Never Smokeless Tobacco: Never Comments Unknown Sex and Gender Information Value Date Recorded Sex Assigned at Not on file Legal Sex Female 3:59 AM CATALYST OPERATOR Gender Identity Female 05/13/2021 4:21 PM CATALYST OPERATOR Sexual Orientation Not on file documented as of this encounter Progress Notes * Merna Bell MD - 04/20/2019 6:21 PM CST I spoke to Isabelle re: Losartan/HCTZ. She had olmesartan/HCT in her possession, did not realize that it was the appropriate substitute. Problem solved for now. LYST OPERATOR documented in this encounter Plan of Treatment Not on file documented as of this encounter Visit Diagnoses Not on filedocumented in this encounter Care Teams Endband Sizer Relationship Specialty Start Date End Date Elpidio Serrato MD PCP - General Internal Medicine 06/09/18 documented as of this encounter
--- OUTSIDE RECORDS SUMMARY | 2024-05-20 07:58 | XMS_ITS | Encounter Summary ---
Author Organization [facility] Address [address] [place] [address] Phone Care Team Providers Care Revenue Accountant Name Role Phone Elpidio Serrato MD Primary Care Provider [phone] Encounter Details Date Type Department Care Team (Late st Contact Info) Description 04/16/2019 Telephone [facility] Endocrinology Metabolism and Lipid [address] [facility] Medicine 13th [place] [address] [place] [address] Merna Bell MD [address] [facility] [address] [place] [address] Social History Tobacco Use Types Packs/Day Years Used Date Smoking Tobacco: Never Smokeless Tobacco: Never Comments Unknown Sex and Gender Information Value Date Recorded Sex Assigned at Not on file Legal Sex Female 3:59 AM TANK FARM OPERATOR Gender Identity Female 05/13/2021 4:21 PM TANK FARM OPERATOR Sexual Orientation Not on file documented as of this encounter Miscellaneous Notes * Telephone Encounter - Gerson Cuadra CMA - 04/21/2019 8:53 AM TANK FARM OPERATOR The pharmacy states it won't be sent again. They see the other medication and it has been filled FARM OPERATOR * Telephone Encounter - Merna Bell MD - 04/20/2019 6:30 PM CST I ordered olmesartan/HCTZ for Isabelle on 04/11. I called her, and she had it in her possession but did not realize that it was the appropriate substitute for losartan/HCTZ. FARM OPERATOR * Telephone Encounter - Gerson Cuadra CMA - 04/16/2019 1:44 PM TANK FARM OPERATOR [facility] [phone] Clarification: Need alternative for Losartan-HCTZ 100-25 Mg tab FARM OPERATOR documented in this encounter Plan of Treatment Not on file documented as of this encounter Visit Diagnoses Not on filedocumented in this encounter Care Teams Revenue Accountant Relationship Specialty Start Date End Date Elpidio Serrato MD PCP - General Internal Medicine 06/09/18 documented as of this encounter
--- OUTSIDE RECORDS SUMMARY | 2024-05-20 07:58 | XMS_ITS | Encounter Summary ---
Author Organization [facility] Facility Care Team Providers Care Spud Grader Name Role Phone Elpidio Serrato MD Primary Care Provider [phone] Encounter Details Date Type Department Care Team (Latest Contact Info) Description 07/03/2019 Travel Social History Tobacco Use Types Packs/Day Years Used Date Smoking Tobacco: Never Smokeless Tobacco: Never Comments Unknown Sex and Gender Information Value Date Recorded Sex Assigned at Not on file Legal Sex Female 3:59 AM CARRIAGE SETTER Gender Identity Female 05/13/2021 4:21 PM CARRIAGE SETTER Sexual Orientation Not on file documented as of this encounter Plan of Treatment Not on file documented as of this encounter Visit Diagnoses Not on filedocumented in this encounter Care Teams Spud Grader Relationship Specialty Start Date End Date Elpidio Serrato MD PCP - General Internal Medicine 06/09/18 documented as of this encounter
--- OUTSIDE RECORDS SUMMARY | 2024-05-20 07:58 | XMS_ITS | Encounter Summary ---
Author Organization [facility] Address [address] [place] [address] Phone Care Team Providers Care Commercial Loan Assistant Name Role Phone Elpidio Serrato MD Primary Care Provider [phone] Reason for Visit * Reason Onset Date Comments different pharmacy for medication 06/09/2020 Encounter Details Date Type Department Care Team (Late st Contact Info) Description 06/09/2020 Telephone [facility] Ophthalmology [address] [place], [place] [id number] Makayla Ramos MD [address] [place], [place] [id number] different pharmacy for medication Social History Tobacco Use Types Packs/Day Years Used Date Smoking Tobacco: Never Smokeless Tobacco: Never Comments Unknown Sex and Gender Information Value Date Recorded Sex Assigned at Not on file Legal Sex Female 3:59 AM COMB MACHINE OPERATOR Gender Identity Female 05/13/2021 4:21 PM COMB MACHINE OPERATOR Sexual Orientation Not on file documented as of this encounter Miscellaneous Notes * Telephone Encounter - Eloisa Luciano COA - 06/09/2020 11:20 AM CST I updated her chart to reflect this. MACHINE OPERATOR * Telephone Encounter - MichaelaInezMarcia - 06/09/2020 10:17 AM CST Pt called and stated that the next time her prescriptions for latanoprost and combigan need to be filled she would like it done so through the mail order pharmacy on file. Pharmacy fax number is [phone] and phone number is [phone]. Best contact number for pt is [phone] MACHINE OPERATOR documented in this encounter Plan of Treatment Not on file documented as of this encounter Visit Diagnoses Not on filedocumented in this encounter Care Teams Commercial Loan Assistant Relationship Specialty Start Date End Date Elpidio Serrato MD PCP - General Internal Medicine 06/09/18 documented as of this encounter
--- OUTSIDE RECORDS SUMMARY | 2024-05-20 07:58 | XMS_ITS | Encounter Summary ---
Author Organization [facility] Address [address] [place] [address] Phone Care Team Providers Care Frame Repairer Name Role Phone Elpidio Serrato MD Primary Care Provider [phone] Reason for Visit * Reason Comments Glaucoma Encounter Details Date Type Department Care Team (Late st Contact Info) Description 01/25/2020 8:45 AM CDT Office Visit [facility] Ophthalmology [address] [facility] [place] [address] Makayla Ramos MD [address] [place] [address] Primary open angle glaucoma (POAG) of both eyes, moderate stage (Primary Dx); Nuclear sclerotic cataract of both eyes Social History Tobacco Use Types Packs/Day Years Used Date Smoking Tobacco: Never Smokeless Tobacco: Never Comments Unknown Sex and Gender Information Value Date Recorded Sex Assigned at Not on file Legal Sex Female 3:59 AM RAIL CAR LOADER Gender Identity Female 05/13/2021 4:21 PM RAIL CAR LOADER Sexual Orientation Not on file documented [...] 0.85 0.85-9 Macula Normal Normal Care Teams Frame Repairer Relationship Specialty Start Date End Date Elpidio Serrato MD PCP - General Internal Medicine 06/09/18 documented as of this encounter
--- OUTSIDE RECORDS SUMMARY | 2024-05-20 07:58 | XMS_ITS | Encounter Summary ---
Author Organization [facility] Address [address] [place] [address] Phone Care Team Providers Care Green Building Architect Name Role Phone Elpidio Serrato MD Primary Care Provider [phone] Reason for Visit * (Routine) - Closed Specialty Diagnoses / Procedures Referred By Constantino alvarado Referred To Contact Diagnoses Primary open angle glaucoma (POAG) of both eyes, moderate stage Procedures OCT, Optic Nerve - OU - Both Eyes Makayla Ramos MD [address] [place] [address] Phone: tel: fax: [facility] (All Locations) Referral ID Status Reason Start Date Expiration Date Visits Re quested Visits Authorized [id number] Closed 01/15/2020 02/13/2021 1 1 Encounter Details Date Type Department Care Team (Late st Contact Info) Description 01/25/2020 8:30 AM CDT Imaging Exam [facility] Ophthalmology [address] [facility] 6th [place] [address] Primary open angle glaucoma (POAG) of both eyes, moderate stage Social History Tobacco Use Types Packs/Day Years Used Date Smoking Tobacco: Never Smokeless Tobacco: Never Comments Unknown Sex and Gender Information Value Date Recorded Sex Assigned at Not on file Legal Sex Female 3:59 AM SEWER Gender Identity Female 05/13/2021 4:21 PM SEWER Sexual Orientation Not on file documented [...] stage documented in this encounter Care Teams Green Building Architect Relationship Specialty Start Date End Date Elpidio Serrato MD PCP - General Internal Medicine 06/09/18 documented as of this encounter
--- OUTSIDE RECORDS SUMMARY | 2024-05-20 07:58 | XMS_ITS | Encounter Summary ---
Author Organization [facility] Address [address] [place] [address] Phone Care Team Providers Care Paper And Pulp Mill Worker Name Role Phone Elpidio Serrato MD Primary Care Provider [phone] Encounter Details Date Type Department Care Team (Latest Contact Info) Description 08/24/2019 9:40 AM CDT Telemedicine [facility] Endocrinology Metabolism and Lipid [address] 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, with long-term current use of insulin, unspecified laterality (CMS/HCC) (Primary Dx); Vitamin D deficiency; Acquired hypothyroidism Social History Tobacco Use Types Packs/Day Years Used Date Smoking Tobacco: Never Smokeless Tobacco: Never Comments Unknown Sex and Gender Information Value Date Recorded Sex Assigned at Not on file Legal Sex Female 3:59 AM BIOFUELS PLANT CONSTRUCTION WORKER Gender Identity Female 05/13/2021 4:21 PM BIOFUELS PLANT CONSTRUCTION WORKER Sexual Orientation Not on file documented as of this encounter Progress Notes * Merna Bell MD - 08/24/2019 9:40 AM CDT This was a telemedicine visit which utilized interactive audio and video technology. During the visit, I was located clinic and the patient was located home. The video session started at 9:45 and ended at 10:13. Isabelle uLtz is a 69 y.o. female who returns [...] 03/31/2019 Type 2 diabetes mellitus (CMS/[facility]) Current doses: Lantus, 48 units Humalo - [...] hypothyroidism documented in this encounter Care Teams Paper And Pulp Mill Worker Relationship Specialty Start Date End Date Elpidio Serrato MD PCP - General Internal Medicine 06/09/18 documented as of this encounter
--- OUTSIDE RECORDS SUMMARY | 2024-05-20 07:58 | XMS_ITS | Encounter Summary ---
Author Organization [facility] Address [address] [place] [address] Phone Care Team Providers Care Wrapper Hands Sprayer Name Role Phone Elpidio Serrato MD Primary Care Provider [phone] Reason for Visit * Reason Onset Date Comments Solara 01/06/2020 Encounter Details Date Type Department Care Team (Late st Contact Info) Description 01/06/2020 Telephone [facility] Endocrinology Metabolism and Lipid [address] [facility] 13th [place] [address] [place] [address] Aide Wolfe CMA Solara Social History Tobacco Use Types Packs/Day Years Used Date Smoking Tobacco: Never Smokeless Tobacco: Never Comments Unknown Sex and Gender Information Value Date Recorded Sex Assigned at Not on file Legal Sex Female 3:59 AM ORDER ENTRY ADMINISTRATOR Gender Identity Female 05/13/2021 4:21 PM ORDER ENTRY ADMINISTRATOR Sexual Orientation Not on file documented as of this encounter Miscellaneous Notes * Telephone Encounter - Aide Wolfe CMA - 01/06/2020 4:16 PM CDT SWO for medical supplies faxed to [phone] documented in this encounter Plan of Treatment Not on file documented as of this encounter Visit Diagnoses Not on filedocumented in this encounter Care Teams Wrapper Hands Sprayer Relationship Specialty Start Date End Date Elpidio Serrato MD PCP - General Internal Medicine 06/09/18 documented as of this encounter
--- OUTSIDE RECORDS SUMMARY | 2024-05-20 07:58 | XMS_ITS | Encounter Summary ---
Author Organization [facility] Address [address] [place] [address] Phone Care Team Providers Care Application Security Engineer Name Role Phone Elpidio Serrato MD Primary Care Provider [phone] Reason for Visit * Reason Onset Date Comments Prior Auth 02/19/2020 Celebrex 200mg C ap (APPROVED 01/20/2020 thur 02/18/2021) Encounter Details Date Type Department Care Team (Late st Contact Info) Description 02/19/2020 Telephone [facility] Endocrinology Metabolism and Lipid [address] [facility] 13th [place] [address] [place] [address] Sonja Land CMA Prior Auth (Celebrex 200mg Cap (APPROVED 01/20/2020 thur 02/18/2021)) Social History Tobacco Use Types Packs/Day Years Used Date Smoking Tobacco: Never Smokeless Tobacco: Never Comments Unknown Sex and Gender Information Value Date Recorded Sex Assigned at Not on file Legal Sex Female 3:59 AM REVERSE ENGINEER Gender Identity Female 05/13/2021 4:21 PM REVERSE ENGINEER Sexual Orientation Not on file documented as of this encounter Miscellaneous Notes * Telephone Encounter - Aaliyah Jara MA - 02/19/2020 12:35 PM CDT Arthur: [id number] [employer] CeleBREX 200MG capsules Prior Auth Status: [...] on filedocumented in this encounter Care Teams Application Security Engineer Relationship Specialty Start Date End Date Elpidio Serrato MD PCP - General Internal Medicine 06/09/18 documented as of this encounter
--- OUTSIDE RECORDS SUMMARY | 2024-05-20 07:58 | XMS_ITS | Encounter Summary ---
Author Organization [facility] Address [address] [place] [address] Phone Care Team Providers Care Timber Mill Worker Name Role Phone Elpidio Serrato MD Primary Care Provider Reason for Referral * Diagnostic Imaging (Routine) - Closed Specialty Diagnoses / Procedures Referred By Contqi t Referred To Contact Diagnoses Age-related osteoporosis without current pathological fracture Vitamin D deficiency Fracture Procedures Dexa Axial Skeleton Bone Density 1 or 2 Site Merna Bell MD Phone: tel: fax: [facility] (All Locations) Referral ID Status Reason Start Date Expiration Date Visits Re quested Visits Authorized [id number] Closed 06/13/2020 07/13/2021 1 1 ENDER Encounter Details Date Type Department Care Team (Latest Contact Info) Description 06/13/2020 9:20 AM BALL ENDER Telemedicine [facility] Endocrinology Metabolism and Lipid [address] [facility] 13th [place] [address] [place] [address] Merna Bell MD [address] [facility] [address] [place] [address] Type 2 diabetes mellitus with moderate nonproliferative [...] on file Legal Sex Female 3:59 AM BALL ENDER Gender Identity Female 05/13/2021 4:21 PM BALL ENDER Sexual Orientation Not on file documented as of this encounter Progress Notes * Merna Bell MD - 06/13/2020 9:20 AM CST Images from the original note were not included. This was a telemedicine visit with Isabelle Lutz alone which took place via Telephone. During thevisit, I was located at home and the patient was located at home in the state [facility]. The patient visit started at 12:40 [...] a telephone or video visit during the [address] explained to them. After being [...] will check TSH. Type 2 diabetes mellitus ([facility]) Glucose control could not be fully assessed on the telemedicine visit without Dexcom download. Recommend: - A1c - Continue current therapy - Check kidney function Vitamin D deficiency Check 25OHD, especially if considering therapy for osteoporosis. Hyperlipidemia Last LDL was 90, but diabetes therapies have changed. Will recheck. Merna Bell MD 06/13/2020 1:44 PM ENDER documented in this encounter Miscellaneous Notes * Assessment & Plan Note - Merna Bell MD - 06/13/2020 1:43 PM BALL ENDER Associated Problem(s): Hyperlipidemia Last LDL was 90, but diabetes therapies have changed. Will recheck. ENDER * Assessment & Plan Note - Merna Bell MD - 06/13/2020 1:43 PM BALL ENDER Associated Problem(s): Vitamin D deficiency Check 25OHD, especially if considering therapy for osteoporosis. ENDER * Assessment & Plan Note - Merna Bell MD - 06/13/2020 1:39 PM BALL ENDER Associated Problem(s): DM2 (diabetes mellitus, type 2) ([facility]) Glucose control could not be fully assessed on the telemedicine visit without Dexcom download. Recommend: - A1c - Continue current therapy - Check kidney function ENDER ENDER * Assessment & Plan Note - Merna Bell MD - 06/13/2020 1:39 PM BALL ENDER Associated Problem(s): Hypothyroidism Has been well controlled on low dose levothyroxine, will check TSH. ENDER * Addendum Note - Savita Vargas - 06/13/2020 9:20 AM CSTAddended by: SAVITA VARGAS on: 07/13/2020 09:35 AM Modules accepted: Orders ENDER documented in this encounter Plan of Treatment Not on file documented as of this encounter Results * Dexa Axial Skeleton Bone Density 1 or 2 Site (07/13/2020 11:59 AM BALL ENDER) Anatomical Region Laterality Modality Body N/A Radiographic Luba ging Narrative 07/17/2020 9:18 PM BALL ENDER Patient Name: Isabelle Lutz Date of : 1950 Date of scan: 07/13/2020 Bone mineral density was performed on a [employer] Discovery Densitometer. ?? Machine Cross-calibration and Precision [...] by the International Society of Clinical Densitometry. [id number] us Merna Bell MD IMG DXA PROCEDURES Final Resu lt * (ABNORMAL) Hemoglobin A1c (07/13/2020 9:40 AM BALL ENDER) Hgb A1C 6.8(H) 4.0 - 5.6 % [facility] Estimated Average Glucose 148 mg/dL [facility] Comment: The ADA recommends reporting an estimated Average Glucose (eAG) with all Hemoglobin A1c results using the equation derived from a study of 507 normal and diabetic adults. ??Minority populations were underrepresented and children were not included. ?? (Diabetes Care 31:6155-3520, 2008). ??The eAG is not equivalent to a fasting glucose. Blood specimen (specimen) 07/13/2020 9:40 AM BALL ENDER 07/13/2020 10:06 AM BALL ENDER us Merna Bell MD LAB BLOOD ORDERABLES Final Re sult [facility] Department [place] [address] * (ABNORMAL) Comprehensive metabolic panel (07/13/2020 9:40 AM BALL ENDER) Pathologist [facility] Sodium 138 135 - 145 mmol/L [facility] Potassium, pl 5.4(H) 3.3 - 4.9 mmol/L [facility] Chloride 107 97 - 110 mmol/L [facility] CO2 23 22 - 32 mmol/L [facility] Anion gap 8 2 - 15 mmol/L [facility] BUN 47(H) 8 - 25 mg/dL [facility] Creatinine 1.27(H) 0.60 - 1.10 mg/dL [facility] Glucose 184 70 - 199 mg/dL [facility] Comment: Interpretive Data Fasting glucose [...] 2017. Calcium 9.6 8.5 - 10.3 mg/dL [facility] Bilirubin, total 0.2 0.1 - 1.2 mg/dL [facility] Protein, pl 7.5 6.5 - 8.5 g/dL [facility] Albumin 4.4 3.5 - 5.0 g/dL [facility] Alk phos 87 40 - 130 Units/L [facility] ALT 17 7 - 45 Units/L [facility] AST 25 10 - 45 Units/L [facility] Blood specimen (specimen) 07/13/2020 9:40 AM BALL ENDER 07/13/2020 10:06 AM BALL ENDER us Merna Bell MD LAB BLOOD ORDERABLES Final Re sult [facility] Department [place] [address] * (ABNORMAL) Lipid panel (07/13/2020 9:40 AM BALL ENDER) Cholesterol 158 30 - 199 mg/dL [facility] Comment: Interpretive Data Ages < [...] revised on 2017. Triglycerides 214(H) <=149 mg/dL [facility] Comment: Interpretive Data Ages < [...] on 2017. HDL 41 >=40 mg/dL [facility] [...] 2017. LDL, calculated 74 <=129 mg/dL [facility] [...] revised on 2017. Non-HDL Cholesterol 117 mg/dL [facility] Comment: Interpretive Data Ages < [...] last revised on 2017. Chol/HDL ratio 4 [facility] Blood specimen (specimen) 07/13/2020 9:40 AM BALL ENDER 07/13/2020 10:06 AM BALL ENDER us Merna Bell MD LAB BLOOD ORDERABLES Final Re sult Performing Organization Address [facility] [place] [facility] de Phone Number [facility] Department [place] [address] * (ABNORMAL) PTH (07/13/2020 9:40 AM BALL ENDER) PTH 83(H) 15 - 65 pg/mL [facility] Blood specimen (specimen) 07/13/2020 9:40 AM BALL ENDER 07/13/2020 10:06 AM BALL ENDER Merna Bell MD LAB BLOOD ORDERABLES Final Re sult Performing Organization Address [facility] [place] [facility]/ZIP Co de Phone Number [facility] [place] [address] * TSH reflex to free T4 (07/13/2020 9:40 AM BALL ENDER) Pathologist [facility] TSH 0.97 0.30 - 4.20 mcIUnit/mL [facility] Blood specimen (specimen) 07/13/2020 9:40 AM BALL ENDER 07/13/2020 10:06 AM BALL ENDER Merna Bell MD LAB BLOOD ORDERABLES Final Re sult Performing Organization Address [facility] [place] [facility] [place] [address] * Albumin Creatinine Ratio, Urine (07/13/2020 9:40 AM BALL ENDER) Pathologist [facility] Albumin Ur <12.0 mg/L [facility] Comment: Interpretive Data No reference range established. Current interpretive data was last revised 2018. Creatinine Ur 103.2 mg/dL [facility] Comment: Interpretive Data No reference range established. Current interpretive data was last revised 2018. Albumin Creatinine Ratio, Ur <12 1 - 29 mg/g [facility] Urine 07/13/2020 9:40 AM BALL ENDER 07/13/2020 10:06 AM BALL ENDER Merna Bell MD LAB URINE ORDERABLES Final Re sult Performing Organization Address City/[facility]/ZIP Co de Phone Number [facility] [place] [address] documented in this encounter Visit Diagnoses Diagnosis [...] (natural) documented in this encounter Care Teams Timber Mill Worker Relationship Specialty Start Date End Date Elpidio Serrato MD PCP - General Internal Medicine 06/09/18 documented as of this encounter
--- OUTSIDE RECORDS SUMMARY | 2024-05-20 07:59 | XMS_ITS | Encounter Summary ---
Author Organization [facility] Address [address] [place] [address] Phone Care Team Providers Care Rn Wound Name Role Phone Joaquin Melchor MD Primary Care Prov ider Encounter Details Date Type Department Care Team (Late st Contact Info) Description 01/20/2018 Telephone [facility] Endocrinology Metabolism and Lipid [address] [facility] 13th [place] [address] [place] [address] Merna Bell MD [address] [facility] [address] [place], [place] [id number] Social History Tobacco Use Types Packs/Day Years Used Date Smoking Tobacco: Never Comments Unknown Sex and Gender Information Value Date Recorded Sex Assigned at Not on file Legal Sex Female 3:59 AM CARD SCRAPER Gender Identity Female 05/13/2021 4:21 PM CARD SCRAPER Sexual Orientation Not on file documented as [...] filedocumented in this encounter Care Teams Rn Wound Relationship Specialty Start Date End Date Joaquin Melchor MD [address] [place] [address] PCP - General 06/25/16 06/08/18 documented as of this encounter
--- OUTSIDE RECORDS SUMMARY | 2024-05-20 07:59 | XMS_ITS | Encounter Summary ---
Author Organization [facility] Address [address] [place] [address] Phone Care Team Providers Care Ekg Monitor Tech Name Role Phone Elpidio Serrato MD Primary Care Provider [phone] Encounter Details Date Type Department Care Team (Latest Contact Info) Description 09/15/2018 10:40 AM CDT Office Visit [facility] Endocrinology Metabolism and Lipid [address] [facility] 13th [place] [address] [place] [address] Merna Bell MD [address] [facility] [address] [place] [address] Type 2 diabetes mellitus with moderate nonproliferative [...] on file Legal Sex Female 3:59 AM PRODUCE DEPARTMENT SUPERVISOR Gender Identity Female 05/13/2021 4:21 PM PRODUCE DEPARTMENT SUPERVISOR Sexual Orientation Not on file documented [...] the plan after nursing home in November. Type 2 diabetes mellitus ([facility]) Diabetes is worsening. Medication changes per [...] (diabetes mellitus, type 2) ([facility]) Diabetes is worsening. Medication changes per [...] the plan after nursing home in November. documented in this encounter Plan [...] (HCC) documented in this encounter Care Teams Ekg Monitor Tech Relationship Specialty Start Date End Date Elpidio Serrato MD PCP - General Internal Medicine 06/09/18 documented as of this encounter
--- OUTSIDE RECORDS SUMMARY | 2024-05-20 07:59 | XMS_ITS | Encounter Summary ---
Author Organization [facility] Address [address] [place] [address] Phone Care Team Providers Care Curator Zoological Museum Name Role Phone Joaquin Melchor MD Primary Care Prov ider Encounter Details Date Type Department Care Team (Late st Contact Info) Description 02/20/2018 Telephone [facility] Endocrinology Metabolism and Lipid [address] [facility] 13th [place] [address] [place] [address] Merna Bell MD [address] [facility] [address] [place], [place] [id number] Social History Tobacco Use Types Packs/Day Years Used Date Smoking Tobacco: Never Comments Unknown Sex and Gender Information Value Date Recorded Sex Assigned at Not on file Legal Sex Female 3:59 AM ENGINEHOUSE BRAKEMAN Gender Identity Female 05/13/2021 4:21 PM ENGINEHOUSE BRAKEMAN Sexual Orientation Not on file documented as of this encounter Miscellaneous Notes * Telephone Encounter - Kasey Grimaldo MA - 02/20/2018 10:52 AM CDT Pt called and lvm stating she would like to speak with you, please call documented in this encounter Plan of Treatment Not on file documented as of this encounter Visit Diagnoses Not on filedocumented in this encounter Care Teams Curator Zoological Museum Relationship Specialty Start Date End Date Joaquin Melchor MD [address] [place] [address] PCP - General 06/25/16 06/08/18 documented as of this encounter
--- OUTSIDE RECORDS SUMMARY | 2024-05-20 07:59 | XMS_ITS | Encounter Summary ---
Author Organization [facility] Address [address] [place] [address] Phone Care Team Providers Care Puff Ironer Name Role Phone Joaquin Melchor MD Primary Care Prov ider Encounter Details Date Type Department Care Team (Late st Contact Info) Description 12/09/2017 Orders Only [facility] Endocrinology Metabolism and Lipid [address] [facility] 13th [place] [address] [place] [address] Ara Mathews RMA Social History Tobacco Use Types Packs/Day Years Used Date Smoking Tobacco: Never Comments Unknown Sex and Gender Information Value Date Recorded Sex Assigned at Not on file Legal Sex Female 3:59 AM EDGER MACHINE HELPER Gender Identity Female 05/13/2021 4:21 PM EDGER MACHINE HELPER Sexual Orientation Not on file documented [...] 05/20/2018 added in this encounter Care Teams Puff Ironer Relationship Specialty Start Date End Date Joaquin Melchor MD [address] [place] [address] PCP - General 06/25/16 06/08/18 documented as of this encounter
--- OUTSIDE RECORDS SUMMARY | 2024-05-20 07:59 | XMS_ITS | Encounter Summary ---
Author Organization [facility] Address [address] [place] [address] Phone Care Team Providers Care Highway Administrative Engineer Name Role Phone Elpidio Serrato MD Primary Care Provider [phone] Reason for Referral * Diagnostic Imaging (Routine) - Closed Specialty Diagnoses / Procedures Referred By Constantino alvarado Referred To Contact Diagnoses Clavicle enlargement Procedures XR Clavicle Right Complete Merna Bell MD Phone: tel: fax: [address] [address] Referral ID Status Reason Start Date Expiration Date Visits Re quested Visits Authorized [id number] Closed 06/16/2018 12/26/2019 1 1 ESTRATOR Encounter Details Date Type Department Care Team (Latest Contact Info) Description 06/16/2018 9:20 AM ORCHESTRATOR Office Visit [facility] Endocrinology Metabolism and Lipid [address] [facility] [address]th [place] [address] [place] [address] Merna Bell MD [address] [facility] [address] [place] [address] Type 2 diabetes mellitus with moderate nonproliferative [...] on file Legal Sex Female 3:59 AM ORCHESTRATOR Gender Identity Female 05/13/2021 4:21 PM ORCHESTRATOR Sexual Orientation Not on file documented as of this encounter Last Filed Vital Signs Vital Sign Reading Time Taken Comments Blood Pressure 140/77 06/16/2018 9:51 AM ORCHESTRATOR Pulse 94 06/16/2018 9:51 AM ORCHESTRATOR Temperature - - Respiratory Rate - - Oxygen Saturation - - Inhaled Oxygen Concentration - - Weight 104.6 kg (230 lb 9.6 oz) 06/16/2018 9:51 AM ORCHESTRATOR Height 152.4 cm (5') 06/16/2018 9:51 AM ORCHESTRATOR Body Mass Index 45.04 06/16/2018 9:51 AM ORCHESTRATOR documented in this encounter Ordered Prescriptions Prescription [...] (H) 64 - 99 mg/dL eGFR, Non -Nicaraguan 88.8 >60.0 mL/min/1.73 m2 eGFR, -Nicaraguan >90.0 >60.0 mL/min/1.73 m2 CBC with auto [...] PTH 46.1 12/09/2017 Type 2 diabetes mellitus ([facility]) Diabetes is improving with treatment. Continue current treatment regimen. but stop glimepiride; take insulin before eating and try not tomiss doses. See Monserrat Vann' note. Continue use of the CGM for safety. Diabetes will be reassessed in 6 months. Hyperlipidemia Lipid abnormalities are improving with treatment. LDL is 97 mg/dl. The patient was referred to the segmental paver installer. and Pharmacotherapy as ordered. Lipids will be reassessed in 6 months. Hypothyroidism Thyroid functions are normal on current replacement, 88 mcg. No changes. Hypertension Hypertension is worsening, BP has increased to 140/77 mmHg. Continue current treatment regimen. Losartan/HCTZ. Blood pressure will be reassessed at the next regular appointment. Osteoarthritis of knee Follow-up with orthopedic cast specialist. Clavicle enlargement X-ray shows osteoarthritis with osteophytes. Odd, but does not need follow-up. Merna Bell MD 06/16/2018 9:20 PM ESTRATOR documented in this encounter Miscellaneous Notes * Assessment & Plan Note - Merna Bell MD - 06/16/2018 9:19 PM ORCHESTRATOR Associated Problem(s): Clavicle enlargement X-ray shows osteoarthritis with osteophytes. Odd, but does not need follow-up. ESTRATOR * Assessment & Plan Note - Merna Bell MD - 06/16/2018 9:19 PM ORCHESTRATOR Associated Problem(s): Osteoarthritis of knee Follow-up with orthopedic cast specialist. ESTRATOR * Assessment & Plan Note - Merna Bell MD - 06/16/2018 9:17 PM ORCHESTRATOR Associated Problem(s): Hypertension Hypertension is worsening, BP has increased to 140/77 mmHg. Continue current treatment regimen. Losartan/HCTZ. Blood pressure will be reassessed at the next regular appointment. ESTRATOR * Assessment & Plan Note - Merna Bell MD - 06/16/2018 9:17 PM ORCHESTRATOR Associated Problem(s): Hypothyroidism Thyroid functions are normal on current replacement, 88 mcg. No changes. ESTRATOR * Assessment & Plan Note - Merna Bell MD - 06/16/2018 9:16 PM ORCHESTRATOR Associated Problem(s): Hyperlipidemia Lipid abnormalities are improving with treatment. LDL is 97 mg/dl. The patient was referred to the segmental paver installer. and Pharmacotherapy as ordered. Lipids will be reassessed in 6 months. ESTRATOR * Assessment & Plan Note - Merna Bell MD - 06/16/2018 9:15 PM ORCHESTRATOR Associated Problem(s): DM2 (diabetes mellitus, type 2) ([facility]) Diabetes is improving with treatment. Continue current treatment regimen. but stop glimepiride; take insulin before eating and try not tomiss doses. See Monserrat Vann' note. Continue use of the CGM for safety. Diabetes will be reassessed in 6 months. 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, with long-term current use of insulin, unspecified laterality (CMS/HCC) VITAMIN D 25 HYDROXY Routine 06/16/2018 11:02 AM ORCHESTRATOR 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, with long-term current use of insulin, unspecified laterality (CMS/HCC) TSH Routine 06/16/2018 11:02 AM ORCHESTRATOR Acquired hypothyroidism VITAMIN B12 Routine 06/16/2018 11:02 AM ORCHESTRATOR 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, with long-term current use of insulin, unspecified laterality (CMS/HCC) LIPID PANEL Routine 06/16/2018 11:02 AM ORCHESTRATOR 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, with long-term current use of insulin, unspecified laterality (CMS/HCC) COMPREHENSIVE METABOLIC PANEL Routine 06/16/2018 11:02 AM ORCHESTRATOR 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 Electronically signed by: Niranjan Phipps M.D. Narrative 06/16/2018 11:58 AM ORCHESTRATOR EXAMINATION: 1. ??Right clavicle complete HISTORY: ??Right [...] Vitamin D 25 hydroxy (06/16/2018 11:02 AM ORCHESTRATOR) Vitamin D 37.5 30.0 - 100.0 ng/mL [facility] Comment: VITAMIN D DEFICIENCY = LESS THAN 20 ng/mL) ? VITAMIN D INSUFFICIENCY = LESS THAN 30 ng/mL ? RECOMMENDED NORMAL RANGE = 30-100 ng/mL Blood specimen (specimen) 06/16/2018 11:02 AM ORCHESTRATOR 06/16/2018 12:11 PM ORCHESTRATOR Merna Bell MD LAB BLOOD ORDERABLES Final Re sult Performing Organization Address [facility] Co de Phone Number [facility] * Vitamin B12 (06/16/2018 11:02 AM ORCHESTRATOR) Vitamin B12 314 232 - 1,245 pg/mL [facility] Blood specimen (specimen) 06/16/2018 11:02 AM ORCHESTRATOR 06/16/2018 12:11 PM ORCHESTRATOR Merna Bell MD LAB BLOOD ORDERABLES Final Re sult Performing Organization Address [facility] de Phone Number [facility] * Microalbumin / creatinine ratio, urine, random (06/16/2018 11:02 AM ORCHESTRATOR) Microalb, Ur <7.0 0.0 - 22.9 mg/L [facility] Comment:Repeated and Verifie d Random Urine Creatinine 97.7 mg/dL [facility] Microalb/Creat Ratio <7.2 0.0 - 29.9 mg/g [facility] Urine 06/16/2018 11:0 2 AM ORCHESTRATOR 06/16/2018 12:11 PM ORCHESTRATOR Merna Bell MD LAB URINE ORDERABLES Final Re sult Performing Organization Address [facility] Co de Phone Number [facility] * Lipid panel (06/16/2018 11:02 AM ORCHESTRATOR) Triglycerides 130 0 - 149 mg/dL [facility] Blood specimen (specimen) 06/16/2018 11:02 AM ORCHESTRATOR 06/16/2018 12:11 PM ORCHESTRATOR Narrative [facility] - 06/16/2018 1:39 PM ORCHESTRATOR These lab test should be done fasting. This means do not eat or drink for at least 12 hours prior to getting your blood drawn. Merna Bell MD LAB BLOOD ORDERABLES Final Re sult [facility] * TSH (06/16/2018 11:02 AM ORCHESTRATOR) Pathologist [facility] TSH (Thyrotropin) 1.70 0.50 - 5.00 uIU/mL [facility] Blood specimen (specimen) 06/16/2018 11:02 AM ORCHESTRATOR 06/16/2018 12:11 PM ORCHESTRATOR Merna Bell MD LAB BLOOD ORDERABLES Final Re sult Performing Organization Address [facility] Co de Phone Number [facility] * CBC with auto differential (06/16/2018 11:02 AM ORCHESTRATOR) Pathologist [facility] White Blood Count 8.3 3.6 - 11.2 [...] [facility] Blood specimen (specimen) 06/16/2018 11:02 AM ORCHESTRATOR 06/16/2018 12:11 PM ORCHESTRATOR us Merna Bell MD LAB BLOOD ORDERABLES Final Re sult [facility] * (ABNORMAL) Comprehensive metabolic panel (06/16/2018 11:02 AM ORCHESTRATOR) Total Protein 7.1 6.1 - 8.4 g/dL [...] = PROVISIONAL DIAGNOSIS OF DIABETES eGFR NON-AFR. HAITIAN 88.8 >60.0 mL/min/1.7 3 m2 [facility] eGFR >90.0 >60.0 mL/min/1.7 3 m2 [facility] Blood specimen (specimen) 06/16/2018 11:02 AM ORCHESTRATOR 06/16/2018 12:11 PM ORCHESTRATOR us Merna Bell MD LAB BLOOD ORDERABLES [...] documented as of this encounter Care Teams Highway Administrative Engineer Relationship Specialty Start Date End Date Elpidio Serrato MD PCP - General Internal Medicine 06/09/18 documented as of this encounter
--- OUTSIDE RECORDS SUMMARY | 2024-05-20 07:59 | XMS_ITS | Encounter Summary ---
Author Organization [facility] Address [address] [place] [address] Phone Care Team Providers Care Cable Stretcher And Tester Name Role Phone Joaquin Melchor MD Primary Care Prov ider Encounter Details Date Type Department Care Team (Latest Contact Info) Description 12/09/2017 9:40 AM CDT Office Visit [facility] Endocrinology Metabolism and Lipid [address] 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, with long-term current use of insulin, unspecified laterality (CMS/HCC) (Primary Dx); Acquired hypothyroidism; Mixed hyperlipidemia Social History Tobacco Use Types Packs/Day Years Used Date Smoking Tobacco: Never Comments Unknown Sex and Gender Information Value Date Recorded Sex Assigned at Not on file Legal Sex Female 3:59 AM BAKERY TECHNICIAN Gender Identity Female 05/13/2021 4:21 PM BAKERY TECHNICIAN Sexual Orientation Not on file documented [...] MD LAB BLOOD ORDERABLES Final Re sult [facility] * PTH, intact (12/09/2017 10:42 AM CDT) Parathyroid Hormone 46.1 15.0 - 65.0 pg/mL [facility] Blood specimen (specimen) 12/09/2017 10:42 AM CDT 12/09/2017 2:24 PM CDT Merna Bell MD LAB BLOOD ORDERABLES Final Re sult Performing Organization Address [facility] de Phone Number [facility] [...] Organization Address [facility] de Phone Number [facility] * T4, free (12/09/2017 10:42 AM CDT) Free T4 1.39 0.93 - 1.70 ng/dL [facility] Blood specimen (specimen) 12/09/2017 10:42 AM CDT 12/09/2017 2:24 PM CDT Merna Bell MD LAB BLOOD ORDERABLES Final Re sult Performing Organization Address [facility] de Phone Number [facility] * TSH (12/09/2017 10:42 AM CDT) TSH (Thyrotropin) 1.64 0.50 - 5.00 uIU/mL [facility] Blood specimen (specimen) 12/09/2017 10:42 AM CDT 12/09/2017 2:24 PM CDT Merna Bell MD LAB BLOOD ORDERABLES Final Re sult Performing Organization Address City/[facility]/ZIP Co de Phone Number [facility] [...] MD LAB BLOOD ORDERABLES Final Re sult [facility] documented [...] 22 added in this encounter Care Teams Cable Stretcher And Tester Relationship Specialty Start Date End Date Joaquin Melhcor MD [address] [place] [address] PCP - General 06/25/16 06/08/18 documented as of this encounter
--- OUTSIDE RECORDS SUMMARY | 2024-05-20 07:59 | XMS_ITS | Encounter Summary ---
Author Organization [facility] Address [address] [place] [address] Phone Care Team Providers Care Print Shop Chief Clerk Name Role Phone Joaquin Melchor MD Primary Care Prov ider Encounter Details Date Type Department Care Team (Late st Contact Info) Description 12/09/2017 11:45 AM CDT Lab [facility] Endocrinology Metabolism and Lipid [address] 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, with long-term current use of insulin, unspecified laterality (CMS/HCC); Acquired hypothyroidism Social History Tobacco Use Types Packs/Day Years Used Date Smoking Tobacco: Never Comments Unknown Sex and Gender Information Value Date Recorded Sex Assigned at Not on file Legal Sex Female 3:59 AM ZANJERO Gender Identity Female 05/13/2021 4:21 PM ZANJERO Sexual Orientation Not on file documented as [...] Re sult Performing Organization Address [facility]/ZIP Co de Phone Number [facility] * PTH, intact (12/09/2017 10:42 AM CDT) Parathyroid Hormone 46.1 15.0 - 65.0 pg/mL [facility] Blood specimen (specimen) 12/09/2017 10:42 AM CDT 12/09/2017 2:24 PM CDT Merna Bell MD LAB BLOOD ORDERABLES Final Re sult [facility] * [...] ORDERABLES Final Re sult [facility] * T4, free (12/09/2017 10:42 AM CDT) Free T4 1.39 0.93 - 1.70 ng/dL [facility] Blood specimen (specimen) 12/09/2017 10:42 AM CDT 12/09/2017 2:24 PM CDT Merna Bell MD LAB BLOOD ORDERABLES Final Re sult Performing Organization Address [facility]/ZIP Co de Phone Number [facility] * TSH (12/09/2017 10:42 AM CDT) Pathologist [facility] TSH (Thyrotropin) 1.64 0.50 - 5.00 uIU/mL [facility] Blood specimen (specimen) 12/09/2017 10:42 AM CDT 12/09/2017 2:24 PM CDT Merna Bell MD LAB BLOOD ORDERABLES Final Re sult Performing Organization Address [facility] Co de Phone Number [facility] * (ABNORMAL) Comprehensive metabolic panel (12/09/2017 10:42 AM CDT) Pathologist [facility] Total Protein 6.9 6.1 - 8.4 g/dL [...] hypothyroidism documented in this encounter Care Teams Print Shop Chief Clerk Relationship Specialty Start Date End Date Joaquin Melchor MD [address] [place] [address] PCP - General 06/25/16 06/08/18 documented as of this encounter
--- OUTSIDE RECORDS SUMMARY | 2024-05-20 07:59 | XMS_ITS | Encounter Summary ---
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, with long-term current use of insulin, unspecified laterality (HCC) Merna Bell MD Phone: tel: fax: [facility] [address] [place] [address] Referral ID Status Reason Start Date Expiration Date V isits Requested Visits Authorized [id number] Closed Specialty Services Required 02/25/2018 12/05/2019 10 10 Encounter Details Date Type Department Care Team (Latest Contact Info) Description 02/25/2018 1:30 PM CDT Clinical Support [facility] Endocrinology Metabolism and Lipid [address] [facility] 13th [place] [address] [place] [address] Monserrat Stuart, JONATHAN [address] [facility] [address] [place] [address] 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 She is [...] Primary documented in this encounter Care Teams Bulk Coolers Installer Relationship Specialty Start Date End Date Joaquin Melchor MD [address] [place] [address] PCP - General 06/25/16 06/08/18 documented as of this encounter
--- OUTSIDE RECORDS SUMMARY | 2024-05-20 07:59 | XMS_ITS | Encounter Summary ---
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, with long-term current use of insulin, unspecified laterality (HCC) Merna Bell MD Phone: tel: fax: [place] [address] [place] [address] Referral ID Status Reason Start Date Expiration Date V isits Requested Visits Authorized [id number] Closed Specialty Services Required 02/25/2018 12/05/2019 10 10 Question Answer [id number] No DNRFR Individual DNSELFRFR Follow-Up DSME/T DSME/T Content All 10 DSMT content areas as appropriate DNMNTRFR Intital MNT Injectable Medications Yes Medication Name Medication Name Amount Amount Frequency Frequency Route Route Encounter Details Date Type Department Care Team (Latest Contact Info) Description 02/25/2018 Orders Only [facility] Endocrinology Metabolism and Lipid [address] [facility] 13th [place] [address] [place] [address] Merna Bell MD [address] [facility] [address] [place] [address] 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, with long-term current use of insulin, unspecified laterality (CMS/HCC) (Primary Dx) Social History Tobacco Use Types Packs/Day Years Used Date Smoking Tobacco: Never Comments Unknown Sex and Gender Information Value Date Recorded Sex Assigned at Not on file Legal Sex Female 3:59 AM BARREL FILLER HEAD Gender Identity Female 05/13/2021 4:21 PM BARREL FILLER HEAD Sexual Orientation Not on file documented [...] Primary documented in this encounter Care Teams Tile Mechanic Relationship Specialty Start Date End Date Joaquin Melchor MD [address] [place] [address] PCP - General 06/25/16 06/08/18 documented as of this encounter
--- OUTSIDE RECORDS SUMMARY | 2024-05-20 07:59 | XMS_ITS | Encounter Summary ---
Author Organization [facility] Address [address] [place] [address] Phone Care Team Providers Care Feather Stitcher Name Role Phone Joaquin Melchor MD Primary Care Prov ider Encounter Details Date Type Department Care Team (Late st Contact Info) Description 01/21/2018 Telephone [facility] Endocrinology Metabolism and Lipid [address] [facility] 13th [place] [address] [place] [address] Merna Bell MD [address] [facility] [address] [place], [place] [id number] Social History Tobacco Use Types Packs/Day Years Used Date Smoking Tobacco: Never Comments Unknown Sex and Gender Information Value Date Recorded Sex Assigned at Not on file Legal Sex Female 3:59 AM SENIOR DB2 SYSTEMS PROGRAMMER Gender Identity Female 05/13/2021 4:21 PM SENIOR DB2 SYSTEMS PROGRAMMER Sexual Orientation Not on file documented [...] KIM before she takes it, please call [phone] documented in this encounter Plan of Treatment Not on file documented as of this encounter Visit Diagnoses Not on filedocumented in this encounter Care Teams Feather Stitcher Relationship Specialty Start Date End Date Joaquin Melchor MD [address] [place] [address] PCP - General 06/25/16 06/08/18 documented as of this encounter
--- OUTSIDE RECORDS SUMMARY | 2024-05-20 07:59 | XMS_ITS | Encounter Summary ---
Author Organization [facility] Address [address] [place] [address] Phone Care Team Providers Care Hawk Missile System Crewmember Name Role Phone Elpidio Serrato MD Primary Care Provider [phone] Encounter Details Date Type Department Care Team (Late st Contact Info) Description 06/16/2018 Orders Only [facility] Endocrinology Metabolism and Lipid [address] [facility] Advanced Medicine 13th [place] [address] [place] [address] Merna Bell MD [address] [facility] [address] [place] [address] Type 2 diabetes mellitus with complication, unspecified whether dedicated intermodal truck driver insulin use (CMS/[facility]) (Primary Dx) Social History Tobacco Use Types Packs/Day Years Used Date Smoking Tobacco: Never Smokeless Tobacco: Never Comments Unknown Sex and Gender Information Value Date Recorded Sex Assigned at Not on file Legal Sex Female 3:59 AM CIRCLE CUTTING SAW OPERATOR Gender Identity Female 05/13/2021 4:21 PM CIRCLE CUTTING SAW OPERATOR Sexual Orientation Not on file documented as of this encounter Plan of Treatment Not on file documented as of this encounter Procedures Procedure Name Priority Date/Time Associated Diagnosis Comments POCT GLUCOSE Routine 06/16/2018 10:05 AM CIRCLE CUTTING SAW OPERATOR Type 2 diabetes mellitus with complication, unspecified whether fpc insulin use (CMS/HCC) POCT HEMOGLOBIN A1C Routine 06/16/2018 1 0:04 AM CIRCLE CUTTING SAW OPERATOR Type 2 diabetes mellitus with complication, unspecified whether dedicated intermodal truck driver insulin use ([facility]) documented in this encounter Results * (ABNORMAL) POCT glucose (06/16/2018 10:05 AM CIRCLE CUTTING SAW OPERATOR) Glucose Blood, POC 197 mg/dL Blood specimen (specimen) 06/16/2018 10:05 AM CIRCLE CUTTING SAW OPERATOR Merna Bell MD POINT OF CARE TEST ORDERABLES Final Result * (ABNORMAL) POCT hemoglobin A1c (06/16/2018 10:04 AM CIRCLE CUTTING SAW OPERATOR) Hemoglobin A1C, POC 7.6 Blood specimen (specimen) 06/16/2018 10:04 AM CIRCLE CUTTING SAW OPERATOR us Merna Bell MD POINT OF CARE TEST ORDERABLES Final Result documented in this encounter Visit Diagnoses Diagnosis Type 2 diabetes mellitus with complication, unspecified whether dedicated intermodal truck driver insulin use- Primary documented in this encounter Care Teams Hawk Missile System Crewmember Relationship Specialty Start Date End Date Elpidio Serrato MD PCP - General Internal Medicine 06/09/18 documented as of this encounter
--- OUTSIDE RECORDS SUMMARY | 2024-05-20 07:59 | XMS_ITS | Encounter Summary ---
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, with long-term current use of insulin, unspecified laterality (HCC) Merna Bell MD Phone: tel: fax: [id number] [place] [address] Referral ID Status Reason Start Date Expiration Date V isits Requested Visits Authorized [id number] Closed Specialty Services Required 06/12/2018 12/22/2019 10 10 Encounter Details Date Type Department Care Team (Latest Contact Info) Description 06/16/2018 10:00 AM NUT AND BOLT ASSEMBLER Clinical Support [facility] Endocrinology Metabolism and Lipid [address] [facility] [address] [place] [address] [place] [address] Monserrat Stuart, JONATHAN [address] [facility] [address] [place] [address] 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, with long-term current use of insulin, unspecified laterality (CMS/HCC) Social History Tobacco Use Types Packs/Day Years Used Date Smoking Tobacco: Never Smokeless Tobacco: Never Comments Unknown Sex and Gender Information Value Date Recorded Sex Assigned at Not on file Legal Sex Female 3:59 AM NUT AND BOLT ASSEMBLER Gender Identity Female 05/13/2021 4:21 PM NUT AND BOLT ASSEMBLER Sexual Orientation Not on file documented as of this encounter Patient Instructions * Patient Instructions* Monserrat Manning CDE - 06/16/2018 10:00 AM NUT AND BOLT ASSEMBLER Stop Glimepiride Humalog 15 units with breakfast and 10 units for lunch and dinner plus sliding scale 1:25>150 mg/dl Less than 150 No extra insulin 151-175 1 176-200 2 201-225 3 226-250 4 251-275 5 276-300 6 301-325 7 326-350 8 351-375 9 Work on limiting calorie intake to 1200/day AND BOLT ASSEMBLER AND BOLT ASSEMBLER documented in this encounter Progress Notes * [...] leg. 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 ?? [...] GETACHEW Ramirez Diabetes Education and Nutritional Counseling AND BOLT ASSEMBLER documented in this encounter Plan of Treatment [...] (HCC) documented in this encounter Care Teams Seam Rubber Relationship Specialty Start Date End Date Elpidio Serrato MD PCP - General Internal Medicine 06/09/18 documented as of this encounter
--- OUTSIDE RECORDS SUMMARY | 2024-05-20 07:59 | XMS_ITS | Encounter Summary ---
Author Organization [facility] Address [address] [place] [address] Phone Care Team Providers Care Iridologist Name Role Phone Elpidio Serrato MD Primary Care Provider [phone] Reason for Visit * Reason Onset Date Comments Prior Auth 12/26/2018 CELEBREX 200MG Encounter Details Date Type Department Care Team (Late st Contact Info) Description 12/26/2018 Telephone [facility] Endocrinology Metabolism and Lipid [address] [facility] Advanced Medicine 13th [place] [address] [place] [address] Brooklyn Dunbar RMA Prior Auth (CELEBREX 200MG) Social History Tobacco Use Types Packs/Day Years Used Date Smoking Tobacco: Never Smokeless Tobacco: Never Comments Unknown Sex and Gender Information Value Date Recorded Sex Assigned at Not on file Legal Sex Female 3:59 AM LABOR EXPEDITER Gender Identity Female 05/13/2021 4:21 PM LABOR EXPEDITER Sexual Orientation Not on file documented as of this encounter Miscellaneous Notes * Telephone Encounter - Brooklyn Dunbar MA - 12/26/2018 9:26 AM CDT MEDICATION PRIOR AUTHORIZATION FORM Date: 12/26/18 Patient Name: Isabelle Lutz : 1950 PROVIDER: NANCY DAVENPORT NPI: [id number] PRIMARY DIAGNOSIS: OSTEOARTHIRIS ICD-10 CODE: M17.10 RX BENEFIT FIRE ADJUSTER: [employer] ID#: [id number] [facility]#: [phone] FAX#: [phone] DRUG INFORMATION: Requested Prescriptions No prescriptions requested or ordered in this encounter CELEBREX 200MG TABLET TAKE 1 TABLET DAILY #90 CAN THIS DRUG BE FILLED AT ANY PHARMACY?: yes DOES THIS DRUG REQUIRE THE USE OF A SPECIALTY PHARMACY?: no PHARMACY NAME: [facility] PHONE#: [phone] FAX#: [phone] AUTH#: [id number] EFFECTIVE: 11/26/18 EXPIRES: 12/26/19 NOTES: APPROVED Completed by: Brooklyn Dunbar MA documented in this encounter Plan of Treatment Not on file documented as of this encounter Visit Diagnoses Not on filedocumented in this encounter Care Teams Iridologist Relationship Specialty Start Date End Date Elpidio Serrato MD PCP - General Internal Medicine 06/09/18 documented as of this encounter
--- OUTSIDE RECORDS SUMMARY | 2024-05-20 07:59 | XMS_ITS | Encounter Summary ---
Author Organization [facility] Address [address] [place] [address] Phone Care Team Providers Care Inventory Management Specialist Name Role Phone Joaquin Melchor MD Primary Care Prov ider Encounter Details Date Type Department Care Team (Late st Contact Info) Description 12/09/2017 Orders Only [facility] Endocrinology Metabolism and Lipid [address] [facility] Advanced Medicine 13th [place] [address] [place] [address] Merna Bell MD [address] [facility] [address] [place] [address] Type 2 diabetes mellitus without complication, with long-term current use of insulin (CMS/HCC) (Primary Dx) Social History Tobacco Use Types Packs/Day Years Used Date Smoking Tobacco: Never Comments Unknown Sex and Gender Information Value Date Recorded Sex Assigned at Not on file Legal Sex Female 3:59 AM GAS ANALYST Gender Identity Female 05/13/2021 4:21 PM GAS ANALYST Sexual Orientation Not on file documented [...] Primary documented in this encounter Care Teams Inventory Management Specialist Relationship Specialty Start Date End Date Joaquin Melchor MD [address] [place] [address] PCP - General 06/25/16 06/08/18 documented as of this encounter
--- OUTSIDE RECORDS SUMMARY | 2024-05-20 07:59 | XMS_ITS | Encounter Summary ---
Author Organization [facility] Address [address] [place] [address] Phone Care Team Providers Care Skein Dyer Name Role Phone Elpidio Serrato MD Primary Care Provider [phone] Reason for Visit * Diagnostic Lab (Routine) - Closed Specialty Diagnoses / Procedures Referred By Constantino alvarado Referred To Contact Lab Diagnoses Z01.812 Procedures SPECIMEN COLLECTION Merna Bell MD Phone: tel: fax: [facility] Endocrinology Metabolism and Lipid [address] [facility] 13th [place] [address] [place] [address] Phone: tel: fax: Referral ID Status Reason Start Date Expiration Date Visits Re quested Visits Authorized [id number] Closed 06/16/2018 12/26/2019 99 99 Encounter Details Date Type Department Care Team (Late st Contact Info) Description 06/16/2018 11:45 AM CARD TENDER Lab [facility] Endocrinology Metabolism and Lipid [address] 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, with long-term current use of insulin, unspecified laterality (CMS/HCC); Acquired hypothyroidism Social History Tobacco Use Types Packs/Day Years Used Date Smoking Tobacco: Never Smokeless Tobacco: Never Comments Unknown Sex and Gender Information Value Date Recorded Sex Assigned at Not on file Legal Sex Female 3:59 AM CARD TENDER Gender Identity Female 05/13/2021 4:21 PM CARD TENDER Sexual Orientation Not on file documented as of this encounter Plan of Treatment Not on file documented as of this encounter Visit Diagnoses Diagnosis 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
--- OUTSIDE RECORDS SUMMARY | 2024-05-20 07:59 | XMS_ITS | Encounter Summary ---
Author Organization [facility] Address [address] [place] [address] Care Team Providers Care Ice Cream Mixer Name Role Phone Elpidio Serrato MD Primary Care Provider [phone] Reason for Referral * Diagnostic Imaging (Routine) - Closed Specialty Diagnoses / Procedures Referred By Constantino alvarado Referred To Contact Diagnoses Clavicle enlargement Procedures XR Clavicle Right Complete Merna Bell MD Phone: tel: fax: [address] [address] Referral ID Status Reason Start Date Expiration Date Visits Re quested Visits Authorized Closed 06/16/2018 12/26/2019 1 1 SUPPORT SERVICE TECH Reason for Visit * Diagnostic Imaging (Routine) - Closed Specialty Diagnoses / Procedures Referred By Constantino alvarado Referred To Contact Diagnoses Clavicle enlargement Procedures XR Clavicle Right Complete Merna Bell MD Phone: tel: fax: [address] [address] Referral ID Status Reason Start Date Expiration Date Visits Re quested Visits Authorized Closed 06/16/2018 12/26/2019 1 1 Encounter Details Date Type Department Care Team (Latest Contact Info) Description 06/16/2018 11:27 AM LAB SUPPORT SERVICE TECH - 06/16/2018 11:59 PM LAB SUPPORT SERVICE TECH Hospital Encounter [facility] [address] [place] [address] Merna Bell MD [address] [facility] [address] [place] [address] Clavicle enlargement Discharge Disposition: Discharge to home or self care Social History Tobacco Use Types Packs/Day Years Used Date Smoking Tobacco: Never Smokeless Tobacco: Never Comments Unknown Sex and Gender Information Value Date Recorded Sex Assigned at Not on file Legal Sex Female 3:59 AM LAB SUPPORT SERVICE TECH Gender Identity Female 05/13/2021 4:21 PM LAB SUPPORT SERVICE TECH Sexual Orientation Not on file documented [...] Read Routine (OP Routine) 06/16/2018 11:56 AM LAB SUPPORT SERVICE TECH Clavicle enlargement documented in this encounter Results * XR Clavicle Right Complete (06/16/2018 11:56 AM LAB SUPPORT SERVICE TECH) Anatomical Region Laterality Modality Clavicle, Chest Right Computed Radiogr aphy 06/16/2018 11:5 8 AM LAB SUPPORT SERVICE TECH Impressions 06/16/2018 11:58 AM LAB SUPPORT SERVICE TECH 1. 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 Electronically signed by: Niranjan Phipps M.D. Narrative 06/16/2018 11:58 AM LAB SUPPORT SERVICE TECH EXAMINATION: 1. ??Right clavicle complete HISTORY: ??Right [...] cartilage documented in this encounter Care Teams Ice Cream Mixer Relationship Specialty Start Date End Date Elpidio Serrato MD PCP - General Internal Medicine 06/09/18 documented as of this encounter
--- OUTSIDE RECORDS SUMMARY | 2024-05-20 07:59 | XMS_ITS | Encounter Summary ---
Author Organization [facility] Address [address] [place] [address] Phone Care Team Providers Care Director Of Partnerships Name Role Phone Joaquin Melchor MD Primary Care Prov ider Encounter Details Date Type Department Care Team (Late st Contact Info) Description 05/18/2018 Orders Only [facility] Endocrinology Metabolism and Lipid [address] [facility] Advanced Medicine 13th [address] [place] [address] Meran Bell MD [address] [facility] [address] [place], [place] [id number] Social History Tobacco Use Types Packs/Day Years Used Date Smoking Tobacco: Never Comments Unknown Sex and Gender Information Value Date Recorded Sex Assigned at Not on file Legal Sex Female 3:59 AM CORE DRILLER Gender Identity Female 05/13/2021 4:21 PM CORE DRILLER Sexual Orientation Not on file documented as [...] of this encounter Care Teams Director Of Partnerships Relationship Specialty Start Date End Date Joaquin Melchor MD [address] [place] [address] PCP - General 06/25/16 06/08/18 documented as of this encounter
--- OUTSIDE RECORDS SUMMARY | 2024-05-20 07:59 | XMS_ITS | Encounter Summary ---
Author Organization [facility] Address [address] [place] [address] Phone Care Team Providers Care Speeder Worker Name Role Phone Joaquin Melchor MD Primary Care Prov ider Encounter Details Date Type Department Care Team (Late st Contact Info) Description 12/09/2017 10:00 AM CDT Lab [facility] Endocrinology Metabolism and Lipid [address] [facility] 13th [place] [address] [place] [address] Hypothyroidism, unspecified type Social History Tobacco Use Types Packs/Day Years Used Date Smoking Tobacco: Never Comments Unknown Sex and Gender Information Value Date Recorded Sex Assigned at Not on file Legal Sex Female 3:59 AM BAKERY PASTRY INTERNSHIP Gender Identity Female 05/13/2021 4:21 PM BAKERY PASTRY INTERNSHIP Sexual Orientation Not on file documented as of this encounter Plan of Treatment Not on file documented as of this encounter Visit Diagnoses Diagnosis Hypothyroidism, unspecified type documented in this encounter Care Teams Speeder Worker Relationship Specialty Start Date End Date Joaquin Melchor MD [address] [place] [address] PCP - General 06/25/16 06/08/18 documented as of this encounter
--- OUTSIDE RECORDS SUMMARY | 2024-05-20 07:59 | XMS_ITS | Encounter Summary ---
Author Organization [facility] Address [address] [place] [address] Phone Care Team Providers Care Taximeter Repairer Name Role Phone Elpidio Serrato MD Primary Care Provider [phone] Encounter Details Date Type Department Care Team (Late st Contact Info) Description 06/09/2018 8:30 AM IMPORT EXPORT AGENT Office Visit [facility] Ophthalmology [address] [place] [address] [place] [phone] Kaushik Sue MD [address] [place] [address] Primary open angle glaucoma of both eyes, unspecified glaucoma stage (Primary Dx); Nonproliferative diabetic retinopathy (CMS/HCC); Nuclear sclerotic cataract of both eyes Social History Tobacco Use Types Packs/Day Years Used Date Smoking Tobacco: Never Smokeless Tobacco: Never Comments Unknown Sex and Gender Information Value Date Recorded Sex Assigned at Not on file Legal Sex Female 3:59 AM IMPORT EXPORT AGENT Gender Identity Female 05/13/2021 4:21 PM IMPORT EXPORT AGENT Sexual Orientation Not on file documented as of this encounter Patient Instructions * Patient Instructions* Kaushik Sue MD - 06/09/2018 8:30 AM IMPORT EXPORT AGENT Dilation instructions Please refer to your Dilating Eyedrops brochure for instructions regarding dilation. RT EXPORT AGENT documented in this encounter Ordered Prescriptions Prescription [...] diabetes mellitus (DM)- tight bs control 2m RT EXPORT AGENT documented in this encounter Plan of Treatment Not on file documented as of this encounter Procedures Procedure Name Priority Date/Time Associated Diagnosis Comments FORREST VISUAL FIELD - OU - BOTH EYES Routine 06/09/2018 8:55 AM IMPORT EXPORT AGENT Primary open angle glaucoma of both eyes, unspecified glaucoma stage documented in this encounter Results * Forrest Visual Field - OU - Both Eyes (06/09/2018 8:55 AM IMPORT EXPORT AGENT) Anatomical Region Laterality Modality Head Visual Field Narrative 06/09/2018 9:22 AM IMPORT EXPORT AGENT Right Eye Fixation was good. Cooperation was [...] Periphery Normal Normal Wearing Rx Sphere Cylinder [place] Add Right eye -3.25 +1.00 165 +2.50 Left eye -3.25 +0.75 025 +2.50 Age: 2+ years Type: FT28 Manifest Refraction Sphere Cylinder [place] Dist [place] Add Right eye -3.25 +1.00 165 20/20 +2.50 Left eye -2.75 +0.75 025 20/20-2 +2.50 Final Rx Sphere Cylinder [place] Dist [place] Add Right eye -3.25 +1.00 165 20/20 +2.50 Left eye -2.75 +0.75 025 20/20-2 +2.50 Care Teams Taximeter Repairer Relationship Specialty Start Date End Date Elpidio Serrato MD PCP - General Internal Medicine 06/09/18 documented as of this encounter
--- OUTSIDE RECORDS SUMMARY | 2024-05-20 07:59 | XMS_ITS | Encounter Summary ---
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, with long-term current use of insulin, unspecified laterality (HCC) Merna Bell MD Phone: tel: fax: [address] [place] [address] Referral ID Status Reason Start Date Expiration Date V isits Requested Visits Authorized [id number] Closed Specialty Services Required 06/12/2018 12/22/2019 10 10 Question Answer [id number] No Injectable Medications Yes Medication Name Medication Name Amount Amount Frequency Frequency Route Route FLAP BINDER Encounter Details Date Type Department Care Team (Latest Contact Info) Description 06/12/2018 Orders Only [facility] Endocrinology Metabolism and Lipid [address] 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, with long-term current use of insulin, unspecified laterality (CMS/HCC) (Primary Dx) Social History Tobacco Use Types Packs/Day Years Used Date Smoking Tobacco: Never Smokeless Tobacco: Never Comments Unknown Sex and Gender Information Value Date Recorded Sex Assigned at Not on file Legal Sex Female 3:59 AM EAR FLAP BINDER Gender Identity Female 05/13/2021 4:21 PM EAR FLAP BINDER Sexual Orientation Not on file documented as [...] Primary documented in this encounter Care Teams Pilot Plant Operator Relationship Specialty Start Date End Date Elpidio Serrato MD PCP - General Internal Medicine 06/09/18 documented as of this encounter
--- OUTSIDE RECORDS SUMMARY | 2024-05-20 07:59 | XMS_ITS | Encounter Summary ---
Author Organization [facility] Address [address] [place] [address] Phone Care Team Providers Care Icu Clerk Name Role Phone Elpidio Serrato MD Primary Care Provider [phone] Encounter Details Date Type Department Care Team (Late st Contact Info) Description 06/13/2018 Orders Only [facility] Endocrinology Metabolism and Lipid [address] [facility] 13th [place] [address] [place] [address] Ara Mathews RMA Social History Tobacco Use Types Packs/Day Years Used Date Smoking Tobacco: Never Smokeless Tobacco: Never Comments Unknown Sex and Gender Information Value Date Recorded Sex Assigned at Not on file Legal Sex Female 3:59 AM PROPERTY AND CASUALTY INSURANCE AGENT Gender Identity Female 05/13/2021 4:21 PM PROPERTY AND CASUALTY INSURANCE AGENT Sexual Orientation Not on file documented [...] 03/31/2019 added in this encounter Care Teams Icu Clerk Relationship Specialty Start Date End Date Elpidio Serrato MD PCP - General Internal Medicine 06/09/18 documented as of this encounter
--- OUTSIDE RECORDS SUMMARY | 2024-05-20 07:59 | XMS_ITS | Encounter Summary ---
Author Organization [facility] Address [address] [place] [address] Phone Care Team Providers Care Project Developer Name Role Phone Elpidio Serrato MD Primary Care Provider [phone] Encounter Details Date Type Department Care Team (Late st Contact Info) Description 06/25/[address] [facility] Endocrinology Metabolism and Lipid [address] [facility] Advanced Medicine 13th [place] [address] [place] [phone] Malika Carter RN Social History Tobacco Use Types Packs/Day Years Used Date Smoking Tobacco: Never Smokeless Tobacco: Never Comments Unknown Sex and Gender Information Value Date Recorded Sex Assigned at Not on file Legal Sex Female 3:59 AM CORPORATE SALES REPRESENTATIVE Gender Identity Female 05/13/2021 4:21 PM CORPORATE SALES REPRESENTATIVE Sexual Orientation Not on file documented as of this encounter Miscellaneous Notes * Telephone Encounter - Malika Carter RN - 06/25/2018 12:46 PM CORPORATE SALES REPRESENTATIVE Patient called to review lab results. Notified that BUN was elevated at 27. Patient also requested to have results of x-ray of clavicle. Results deferred to physician for interpretation and physiciannotified. ORATE SALES REPRESENTATIVE documented in this encounter Plan of Treatment Not on file documented as of this encounter Visit Diagnoses Not on filedocumented in this encounter Care Teams Project Developer Relationship Specialty Start Date End Date Elpidio Serrato MD PCP - General Internal Medicine 06/09/18 documented as of this encounter
--- OUTSIDE RECORDS SUMMARY | 2024-05-20 07:59 | XMS_ITS | Encounter Summary ---
Author Organization [facility] Address [address] [place] [address] Phone Care Team Providers Care Organizational Development Manager Name Role Phone Elpidio Serrato MD Primary Care Provider [phone] Encounter Details Date Type Department Care Team (Late st Contact Info) Description 06/26/2018 Telephone [facility] Endocrinology Metabolism and Lipid [address] [facility] Medicine 13th [place] [address] [place] [address] Malika Carter RN Social History Tobacco Use Types Packs/Day Years Used Date Smoking Tobacco: Never Smokeless Tobacco: Never Comments Unknown Sex and Gender Information Value Date Recorded Sex Assigned at Not on file Legal Sex Female 3:59 AM ONLINE MEDIA DIRECTOR Gender Identity Female 05/13/2021 4:21 PM ONLINE MEDIA DIRECTOR Sexual Orientation Not on file documented as of this encounter Miscellaneous Notes * Telephone Encounter - Malika Carter RN - 07/01/2018 5:31 PM ONLINE MEDIA DIRECTOR Created in error. NE MEDIA DIRECTOR documented in this encounter Plan of Treatment Not on file documented as of this encounter Visit Diagnoses Not on filedocumented in this encounter Care Teams Organizational Development Manager Relationship Specialty Start Date End Date Elpidio Serrato MD PCP - General Internal Medicine 06/09/18 documented as of this encounter
--- OUTSIDE RECORDS SUMMARY | 2024-05-20 07:59 | XMS_ITS | Encounter Summary ---
Author Organization [facility] Address [address] [place] [address] Phone Care Team Providers Care Lead Cook Name Role Phone Elpidio Serrato MD Primary Care Provider [phone] Encounter Details Date Type Department Care Team (Late st Contact Info) Description 12/03/2018 Documentation [facility] Endocrinology Metabolism and Lipid [address] [facility] Medicine 13th [place] [address] [place] [phone] Gerson Cuadra CMA Social History Tobacco Use Types Packs/Day Years Used Date Smoking Tobacco: Never Smokeless Tobacco: Never Comments Unknown Sex and Gender Information Value Date Recorded Sex Assigned at Not on file Legal Sex Female 3:59 AM INTELLECTUAL PROPERTY PARALEGAL Gender Identity Female 05/13/2021 4:21 PM INTELLECTUAL PROPERTY PARALEGAL Sexual Orientation Not on file documented as of this encounter Progress Notes * Gerson Cuadra MA - 12/03/2018 3:38 PM CDT FAXED LMN TO [facility] ON 12-01-18 AT [phone] documented in this encounter Plan of Treatment Not on file documented as of this encounter Visit Diagnoses Not on filedocumented in this encounter Care Teams Lead Cook Relationship Specialty Start Date End Date Elpidio Serrato MD PCP - General Internal Medicine 06/09/18 documented as of this encounter
--- OUTSIDE RECORDS SUMMARY | 2024-05-20 07:59 | XMS_ITS | Encounter Summary ---
Author Organization [facility] Address [address] [place] [address] Phone Care Team Providers Care Supportability Engineer Name Role Phone Joaquin Melchor MD Primary Care Prov ider Encounter Details Date Type Department Care Team (Late st Contact Info) Description 12/09/2017 Orders Only [facility] Endocrinology Metabolism and Lipid [address] [facility] Advanced Medicine 13th [place] [address] [place] [address] Merna Bell MD [address] [facility] [address] [place] [address] Social History Tobacco Use Types Packs/Day Years Used Date Smoking Tobacco: Never Comments Unknown Sex and Gender Information Value Date Recorded Sex Assigned at Not on file Legal Sex Female 3:59 AM HEATING MECHANIC Gender Identity Female 05/13/2021 4:21 PM HEATING MECHANIC Sexual Orientation Not on file documented as of this encounter Plan of Treatment Not on file documented as of this encounter Visit Diagnoses Not on filedocumented in this encounter Care Teams Supportability Engineer Relationship Specialty Start Date End Date Joaquin Melchor MD [address] [place] [address] PCP - General 06/25/16 06/08/18 documented as of this encounter
--- OUTSIDE RECORDS SUMMARY | 2024-05-20 07:59 | XMS_ITS | Encounter Summary ---
Author Organization [facility] Address [address] [place] [address] Phone Care Team Providers Care Steel Wool Machine Operator Name Role Phone Joaquin Melchor MD Primary Care Prov ider Encounter Details Date Type Department Care Team (Late st Contact Info) Description 01/20/2018 Telephone [address] [place] [address] Claudia Harris, CAPRI Social History Tobacco Use Types Packs/Day Years Used Date Smoking Tobacco: Never Comments Unknown Sex and Gender Information Value Date Recorded Sex Assigned at Not on file Legal Sex Female 3:59 AM CLAM GRADER Gender Identity Female 05/13/2021 4:21 PM CLAM GRADER Sexual Orientation Not on file documented [...] on filedocumented in this encounter Care Teams Steel Wool Machine Operator Relationship Specialty Start Date End Date Joaquin Melchor MD [address] [place] [address] PCP - General 06/25/16 06/08/18 documented as of this encounter
--- OUTSIDE RECORDS SUMMARY | 2024-05-20 07:59 | XMS_ITS | Encounter Summary ---
Author Organization [facility] Address [address] [place] [address] Phone Care Team Providers Care Central Supply Aide Name Role Phone Elpidio Serrato MD Primary Care Provider [phone] Encounter Details Date Type Department Care Team (Latest Contact Info) Description 10/17/2018 1:00 PM CDT Office Visit [facility] Ophthalmology [facility] [place] [address] Niranjan Thomas MD [address] [facility] [address] [place], [place] [id number] Primary open angle glaucoma (POAG) of both [...] on file Legal Sex Female 3:59 AM GRIZZLY WORKER Gender Identity Female 05/13/2021 4:21 PM GRIZZLY WORKER Sexual Orientation Not on file documented [...] & Plan: Dr. Sue patient returning to [place] today for 6 week IOP check. Pressures [...] & Plan: Dr. Sue patient returning to [place] today for 6 week IOP check. Pressures [...] CDTAssociated Problem(s): DM2 (diabetes mellitus, type 2) ([facility]) Stressed tight BS control. No DFE today. [...] spokes Anterior Vitreous Normal Normal Care Teams Central Supply Aide Relationship Specialty Start Date End Date Elpidio Serrato MD PCP - General Internal Medicine 06/09/18 documented as of this encounter
--- OUTSIDE RECORDS SUMMARY | 2024-05-20 07:59 | XMS_ITS | Encounter Summary ---
Author Organization [facility] Address [address] [place] [address] Phone Care Team Providers Care Secondary Set Up Man Name Role Phone Joaquin Melchor MD Primary Care Prov ider Encounter Details Date Type Department Care Team (Late st Contact Info) Description 12/13/2017 Documentation [facility] Endocrinology Metabolism and Lipid [address] [facility] 5th [place] [address] [place] [address] Desiree Rodriguez MD [address] [facility] [address] [place], [place] [id number] Social History Tobacco Use Types Packs/Day Years Used Date Smoking Tobacco: Never Comments Unknown Sex and Gender Information Value Date Recorded Sex Assigned at Not on file Legal Sex Female 3:59 AM ELECTRIC MILKERS INSTALLER Gender Identity Female 05/13/2021 4:21 PM ELECTRIC MILKERS INSTALLER Sexual Orientation Not on file documented [...] on filedocumented in this encounter Care Teams Secondary Set Up Man Relationship Specialty Start Date End Date Joaquin Melchor MD [address] [place] [address] PCP - General 06/25/16 06/08/18 documented as of this encounter
--- OUTSIDE RECORDS SUMMARY | 2024-05-20 07:59 | XMS_ITS | Encounter Summary ---
Author Organization [facility] Address [address] [place] [address] Phone Care Team Providers Care Tenter Name Role Phone Elpidio Serrato MD Primary Care Provider [phone] Encounter Details Date Type Department Care Team (Late st Contact Info) Description 09/01/2018 10:15 AM CDT Office Visit [facility] Ophthalmology [address] [place] [address] [place] [phone] Kaushik Sue MD [address] [place] [address] [place] [address] Primary open angle glaucoma (POAG) of both eyes, moderate stage (Primary Dx) Social History Tobacco Use Types Packs/Day Years Used Date Smoking Tobacco: Never Smokeless Tobacco: Never Comments Unknown Sex and Gender Information Value Date Recorded Sex Assigned at Not on file Legal Sex Female 3:59 AM CLOTH CARRIER Gender Identity Female 05/13/2021 4:21 PM CLOTH CARRIER Sexual Orientation Not on file documented as [...] Nuclear sclerosis Vitreous Normal Normal Care Teams Tenter Relationship Specialty Start Date End Date Elpidio Serrato MD PCP - General Internal Medicine 06/09/18 documented as of this encounter
--- OUTSIDE RECORDS SUMMARY | 2024-05-20 07:59 | XMS_ITS | Encounter Summary ---
Author Organization [facility] Address [address] [place] [address] Phone Care Team Providers Care Sales And Service Consultant Name Role Phone Elpidio Serrato MD Primary Care Provider [phone] Encounter Details Date Type Department Care Team (Latest Contact Info) Description 03/31/2019 1:50 PM LOCK SETTER Office Visit [facility] Endocrinology Metabolism and Lipid [address] [facility] Advanced [facility] 13th [place] [address] [place] [address] Merna Bell MD [address] [facility] [address] [place] [address] 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, with long-term current use of insulin, unspecified laterality (CMS/HCC) (Primary Dx) Social History Tobacco Use Types Packs/Day Years Used Date Smoking Tobacco: Never Smokeless Tobacco: Never Comments Unknown Sex and Gender Information Value Date Recorded Sex Assigned at Not on file Legal Sex Female 3:59 AM LOCK SETTER Gender Identity Female 05/13/2021 4:21 PM LOCK SETTER Sexual Orientation Not on file documented as of this encounter Last Filed Vital Signs Vital Sign Reading Time Taken Comments Blood Pressure 113/71 03/31/2019 1:41 PM LOCK SETTER Pulse 85 03/31/2019 1:41 PM LOCK SETTER Temperature 36.5 ??C (97.7 ??F) 03/31/2019 1:41 PM CS T Respiratory Rate - - Oxygen Saturation - - Inhaled Oxygen Concentration - - Weight 105.3 kg (232 lb 3.2 oz) 03/31/2019 1:41 PM LOCK SETTER Height 152.4 cm (5') 03/31/2019 1:41 PM LOCK SETTER Body Mass Index 45.35 03/31/2019 1:41 PM LOCK SETTER documented in this encounter Ordered Prescriptions Prescription [...] 46.1 12/09/2017 Assessment/Plan: Type 2 diabetes mellitus (CMS/[facility]) Diabetes is worsening. Increase Lantus to [...] is unchanged. She is less active after penitentiary. Discussed the patient's BMI. The BMI is [...] Merna Bell MD at 04/01/2019 6:18 PM LOCK SETTER SETTER SETTER Associated attestation - Merna Bell MD - 04/01/2019 6:18 PM LOCK SETTER I have seen and examined the patient. I agree with the findings and plan of care as documented in the resident/fellow's note. documented in this encounter Miscellaneous Notes * Assessment & Plan Note - Alex Penn MD - 04/01/2019 11:30 AM LOCK SETTER Associated Problem(s): Vitamin D deficiency Levels normal 06/2018. Continue weekly ergocalciferol SETTER SETTER * Assessment & Plan Note - Alex Penn MD - 04/01/2019 11:29 AM LOCK SETTER Associated Problem(s): Obesity Obesity is unchanged. She is less active after penitentiary. Discussed the patient's BMI. The BMI is too high, and is causing serious morbidities. . General weight loss/lifestyle modification strategies discussed (elicit support from others; identify saboteurs; non-food rewards, etc). Pharmacotherapy as ordered. Given bilateral knee pain, recommended water based exercises SETTER * Assessment & Plan Note - Alex Penn MD - 04/01/2019 11:28 AM LOCK SETTER Associated Problem(s): Hyperlipidemia Lipid abnormalities are improving with treatment. LDL is 47 in 06/2018. Continue simvastatin 40 mg daily Lipids will be reassessed in 6 months. SETTER * Assessment & Plan Note - Alex Penn MD - 04/01/2019 11:26 AM LOCK SETTER Associated Problem(s): Hypothyroidism Continue current replacement, 88 mcg. Will check TSH today SETTER SETTER * Assessment & Plan Note - Alex Penn MD - 04/01/2019 11:23 AM LOCK SETTER Associated Problem(s): DM2 (diabetes mellitus, type 2) ([facility]) Diabetes is worsening. Increase Lantus to 50 units; reduce carbs to <40 grams per meal. Continue metformin, Victoza, and humalog at same doses. Check CBC, CMP, Lipid panel, and alb cr ratio (urine) today Diabetes will be reassessed in 5 months. 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, with long-term current use of insulin, unspecified laterality (CMS/HCC) documented in this encounter Results * (ABNORMAL) Albumin Creatinine Ratio, Urine (03/31/2019 3:37 PM LOCK SETTER) Microalb, Ur 27.3(H) 0.0 - 22.9 mg/L [facility] Random Urine Creatinine 271.8 mg/dL [facility] Microalb/Creat Ratio 10.0 0.0 - 29.9 mg/g [facility] Urine 03/31/2019 3:37 PM LOCK SETTER 03/31/2019 4:04 PM LOCK SETTER us Merna Bell MD LAB URINE ORDERABLES Final Re kevint Performing Organization Address City/[facility] Co de Phone Number [facility] * (ABNORMAL) Lipid panel (03/31/2019 3:37 PM LOCK SETTER) Triglycerides 186(H) 0 - 149 mg/dL [facility] [...] Total HDL-C Direct 50 >39 mg/dL [facility] Comment: NATIONAL CHOLESTEROL EDUCATION [...] mg/dL Blood specimen (specimen) 03/31/2019 3:37 PM LOCK SETTER 03/31/2019 4:04 PM LOCK SETTER us Merna Bell MD LAB BLOOD ORDERABLES Final Re kevint Performing Organization Address City/[facility]/ZIP Co de Phone Number [facility] * TSH (03/31/2019 3:37 PM LOCK SETTER) TSH (Thyrotropin) 2.62 0.27 - 4.20 uIU/mL [facility] Comment:* Please note update d reference range for TSH effective 07/17/18 * Blood specimen (specimen) 03/31/2019 3:37 PM LOCK SETTER 03/31/2019 4:04 PM LOCK SETTER us Merna Bell MD LAB BLOOD ORDERABLES Final Re sult [facility] * CBC with auto differential (03/31/2019 3:37 PM LOCK SETTER) White Blood Count 9.8 3.6 - 11.2 [...] [facility] Blood specimen (specimen) 03/31/2019 3:37 PM LOCK SETTER 03/31/2019 4:04 PM LOCK SETTER us Merna Bell MD LAB BLOOD ORDERABLES Final Re sult [facility] * (ABNORMAL) Comprehensive metabolic panel (03/31/2019 3:37 PM LOCK SETTER) Total Protein 7.3 6.1 - 8.4 g/dL [...] = PROVISIONAL DIAGNOSIS OF DIABETES eGFR NON-AFR. [place] 53.8(L) >60.0 mL/min/1.7 3 m2 [facility] eGFR 62.3 >60.0 mL/min/1.7 3 m2 [facility] Blood specimen (specimen) 03/31/2019 3:37 PM LOCK SETTER 03/31/2019 4:04 PM LOCK SETTER Merna Bell MD LAB BLOOD ORDERABLES Final Re sult [facility] * (ABNORMAL) POCT hemoglobin A1c (03/31/2019 1:47 PM LOCK SETTER) Hemoglobin A1C, POC 7.3 Blood specimen (specimen) 03/31/2019 1:47 PM LOCK SETTER Merna Bell MD POINT OF CARE TEST ORDERABLES Final Result * POCT glucose (03/31/2019 1:43 PM LOCK SETTER) Glucose Blood, POC 115 mg/dL Blood specimen (specimen) 03/31/2019 1:43 PM LOCK SETTER Merna Bell MD POINT OF CARE TEST [...] documented as of this encounter Care Teams Sales And Service Consultant Relationship Specialty Start Date End Date Elpidio Serrato MD PCP - General Internal Medicine 06/09/18 documented as of this encounter
--- OUTSIDE RECORDS SUMMARY | 2024-05-20 08:00 | XMS_ITS | Encounter Summary ---
Author Organization [facility] Address [address] [place] [address] Phone Care Team Providers Care Group Program Manager Name Role Phone Joaquin Melchor MD Primary Care Prov ider Reason for Visit * Reason Onset Date Comments PA Approval 11/01/2017 Encounter Details Date Type Department Care Team (Late st Contact Info) Description 11/01/2017 Documentation [facility] Endocrinology Metabolism and Lipid [address] [facility] Advanced Medicine 13th [place] [address] [place] [address] Merna Bell MD [address] [facility] [address] [place] [address] PA Approval Social History Tobacco Use Types Packs/Day Years Used Date Smoking Tobacco: Never Comments Unknown Sex and Gender Information Value Date Recorded Sex Assigned at Not on file Legal Sex Female 3:59 AM ORIENTATION AND MOBILITY SPECIALIST Gender Identity Female 05/13/2021 4:21 PM ORIENTATION AND MOBILITY SPECIALIST Sexual Orientation Not on file documented as of this encounter Progress Notes * Milli Can MA - 11/01/2017 2:31 PM CDT PA approved for pt Celebrex 200mg qty 240 for 90 day valid from 09/30/17-10/30/2018 documented in this encounter Plan of Treatment Not on file documented as of this encounter Visit Diagnoses Not on filedocumented in this encounter Care Teams Group Program Manager Relationship Specialty Start Date End Date Joaquin Melchor MD [address] [place] [address] PCP - General 06/25/16 06/08/18 documented as of this encounter
--- OUTSIDE RECORDS SUMMARY | 2024-05-20 08:00 | XMS_ITS | Encounter Summary ---
Author Organization [facility] Facility Care Team Providers Care Sail Maker Name Role Phone Unavailable Primary Care Provider Unavailabl e Encounter Details Date Type Department Care Team (Late st Contact Info) Description 07/31/2006 9:46 AM CDT - 08/01/2006 7:18 PM CDT Hospital Encounter [facility] Vincent Ratliff MD [address] [place] [address] Social History Tobacco Use Types Packs/Day Years Used Date Smoking Tobacco: Never Assessed Comments Unknown Sex and Gender Information Value Date Recorded Sex Assigned at Not on file Legal Sex Female 3:59 AM VENDING TECHNICIAN Gender Identity Female 05/13/2021 4:21 PM VENDING TECHNICIAN Sexual Orientation Not on file documented [...]
--- OUTSIDE RECORDS SUMMARY | 2024-05-20 08:00 | XMS_ITS | Encounter Summary ---
Author Organization [facility] Facility Care Team Providers Care Guest Service Aide Name Role Phone Unavailable Primary Care Provider Unavailabl e Encounter Details Date Type Department Care Team (Late st Contact Info) Description 01/30/2011 - 01/30/2011 11:59 PM CDT Hospital Encounter [facility] Merna Vidal MD [address] [id number] Other screening mammogram Social History Tobacco Use Types Packs/Day Years Used Date Smoking Tobacco: Never Assessed Comments Unknown Sex and Gender Information Value Date Recorded Sex Assigned at Not on file Legal Sex Female 3:59 AM SWITCHBOARD WIRER Gender Identity Female 05/13/2021 4:21 PM SWITCHBOARD WIRER Sexual Orientation Not on file documented as [...]
--- OUTSIDE RECORDS SUMMARY | 2024-05-20 08:00 | XMS_ITS | Encounter Summary ---
Author Organization [facility] Facility Care Team Providers Care Hydraulic Controls Technician Name Role Phone Unavailable Primary Care Provider Unavailabl e Encounter Details Date Type Department Care Team (Late st Contact Info) Description 06/15/2008 - 06/15/2008 11:59 PM ORAL SURGERY PHYSICIAN Hospital Encounter [facility] Merna Vidal MD [address] [address] Type 2 or unspecified type diabetes mellitus; Essential hypertension; Other and unspecified hyperlipidemia Social History Tobacco Use Types Packs/Day Years Used Date Smoking Tobacco: Never Assessed Comments Unknown Sex and Gender Information Value Date Recorded Sex Assigned at Not on file Legal Sex Female 3:59 AM ORAL SURGERY PHYSICIAN Gender Identity Female 05/13/2021 4:21 PM ORAL SURGERY PHYSICIAN Sexual Orientation Not on file documented [...]
--- OUTSIDE RECORDS SUMMARY | 2024-05-20 08:00 | XMS_ITS | Encounter Summary ---
Author Organization [facility] Facility Care Team Providers Care Machine Design Teacher Name Role Phone Unavailable Primary Care Provider Unavailabl e Encounter Details Date Type Department Care Team (Late st Contact Info) Description 08/01/2009 - 08/01/2009 11:59 PM CDT Hospital Encounter [facility] Merna Vidal MD [address] [id number] Type 2 or unspecified type diabetes mellitus, uncontrolled; Other and unspecified hyperlipidemia Social History Tobacco Use Types Packs/Day Years Used Date Smoking Tobacco: Never Assessed Comments Unknown Sex and Gender Information Value Date Recorded Sex Assigned at Not on file Legal Sex Female 3:59 AM TRIMMING CASER Gender Identity Female 05/13/2021 4:21 PM TRIMMING CASER Sexual Orientation Not on file documented as [...]
--- OUTSIDE RECORDS SUMMARY | 2024-05-20 08:00 | XMS_ITS | Encounter Summary ---
Author Organization [facility] Facility Care Team Providers Care Scouts Name Role Phone Unavailable Primary Care Provider Unavailabl e Encounter Details Date Type Department Care Team (Late st Contact Info) Description 12/16/2007 - 12/16/2007 11:59 PM CDT Hospital Encounter [facility] Merna Vidal MD [address] [id number] Social History Tobacco Use Types Packs/Day Years Used Date Smoking Tobacco: Never Assessed Comments Unknown Sex and Gender Information Value Date Recorded Sex Assigned at Not on file Legal Sex Female 3:59 AM FINANCIAL ASSOCIATE Gender Identity Female 05/13/2021 4:21 PM FINANCIAL ASSOCIATE Sexual Orientation Not on file documented [...]
--- OUTSIDE RECORDS SUMMARY | 2024-05-20 08:00 | XMS_ITS | Encounter Summary ---
Author Organization [facility] Facility Care Team Providers Care Elementary Spanish Teacher Name Role Phone Unavailable Primary Care Provider Unavailabl e Encounter Details Date Type Department Care Team (Late st Contact Info) Description 02/25/2007 - 02/25/2007 11:59 PM CDT Hospital Encounter [facility] Merna Vidal MD [address] [id number] Social History Tobacco Use Types Packs/Day Years Used Date Smoking Tobacco: Never Assessed Comments Unknown Sex and Gender Information Value Date Recorded Sex Assigned at Not on file Legal Sex Female 3:59 AM RECONDITIONER Gender Identity Female 05/13/2021 4:21 PM RECONDITIONER Sexual Orientation Not on file documented as [...]
--- OUTSIDE RECORDS SUMMARY | 2024-05-20 08:00 | XMS_ITS | Encounter Summary ---
Author Organization [facility] Facility Care Team Providers Care Game Warden Name Role Phone Unavailable Primary Care Provider Unavailabl e Encounter Details Date Type Department Care Team (Late st Contact Info) Description 07/14/2012 - 07/14/2012 11:59 PM SHIM PLUG CUTTER Hospital Encounter [facility] Eolisa Crouch MD [address] [id number] Actinic keratosis Social History Tobacco Use Types Packs/Day Years Used Date Smoking Tobacco: Never Assessed Comments Unknown Sex and Gender Information Value Date Recorded Sex Assigned at Not on file Legal Sex Female 3:59 AM SHIM PLUG CUTTER Gender Identity Female 05/13/2021 4:21 PM SHIM PLUG CUTTER Sexual Orientation Not on file documented [...]
--- OUTSIDE RECORDS SUMMARY | 2024-05-20 08:00 | XMS_ITS | Encounter Summary ---
Author Organization [facility] Facility Care Team Providers Care [id number] Tank Crewman Name Role Phone Unavailable Primary Care Provider Unavailabl e Encounter Details Date Type Department Care Team (Late st Contact Info) Description 08/27/2006 - 08/27/2006 11:59 PM CDT Hospital Encounter [facility] Merna Vidal MD [address] [address] Social History Tobacco Use Types Packs/Day Years Used Date Smoking Tobacco: Never Assessed Comments Unknown Sex and Gender Information Value Date Recorded Sex Assigned at Not on file Legal Sex Female 3:59 AM ORTHOPEDIC DENTIST Gender Identity Female 05/13/2021 4:21 PM ORTHOPEDIC DENTIST Sexual Orientation Not on file documented as [...]
--- OUTSIDE RECORDS SUMMARY | 2024-05-20 08:00 | XMS_ITS | Encounter Summary ---
Author Organization [facility] Facility Care Team Providers Care Jv Baseball Coach Name Role Phone Unavailable Primary Care Provider Unavailabl e Encounter Details Date Type Department Care Team (Latest Contact Info) Description 06/18/2016 12:17 AM OIL TRUCK DRIVER - 06/19/2016 1:37 PM OIL TRUCK DRIVER Hospital Encounter [facility] Denzel Wasserman MD [address] [facility] [address] [place] [address] Chondrocostal junction syndrome; Acute kidney failure (CMS/HCC); Hyperkalemia; Zoster without complications; Type 2 diabetes mellitus without complications (CMS/HCC); 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 (CMS/HCC); Hypothyroidism; Hyperlipidemia; Essential (primary) hypertension; Glaucoma; Abnormality of gait and mobility; half-way current use of aspirin; Family history of ischemic heart disease and other diseases of the circulatory system; Family history of diabetes mellitus Social History Tobacco Use Types Packs/Day Years Used Date Smoking Tobacco: Never Comments Unknown Sex and Gender Information Value Date Recorded Sex Assigned at Not on file Legal Sex Female 3:59 AM OIL TRUCK DRIVER Gender Identity Female 05/13/2021 4:21 PM OIL TRUCK DRIVER Sexual Orientation Not on file documented as of this encounter Last Filed Vital Signs Vital Sign Reading Time Taken Comments Blood Pressure 144/61 06/19/2016 7:50 AM OIL TRUCK DRIVER Pulse 94 06/19/2016 7:50 AM OIL TRUCK DRIVER Temperature - - Respiratory Rate - - Oxygen Saturation 97% 06/19/2016 7:50 AM OIL TRUCK DRIVER Inhaled Oxygen Concentration - - Weight 104.8 kg (231 lb 1.4 oz) 06/18/2016 3:00 AM OIL TRUCK DRIVER Height 152.4 cm (5') 06/18/2016 12:22 AM OIL TRUCK DRIVER Body Mass Index 45.13 06/18/2016 12:22 AM OIL TRUCK DRIVER documented in this encounter Medications at Time [...] GLUCOSE, POC Routine 06/19/2016 11 :59 AM OIL TRUCK DRIVER PLASMA BASIC METABOLIC PANEL Routine 06/19/2016 11:54 AM OIL TRUCK DRIVER BLOOD GLUCOSE, POC Routine 06/19/2016 6: 47 AM OIL TRUCK DRIVER URINE SODIUM Routine 06/19/2016 6:32 AM OIL TRUCK DRIVER URINE POTASSIUM Routine 06/19/2016 6:32 AM OIL TRUCK DRIVER URINE CHLORIDE Routine 06/19/2016 6:32 AM OIL TRUCK DRIVER PLASMA BASIC METABOLIC PANEL Routine 06/19/2016 6:32 AM OIL TRUCK DRIVER ELECTROCARDIOGRAPHY (ECG) 06/19/2016 ELECTROCARDIOGRAPHY (ECG) 06/19/2016 DISCHARGE LABORATORY CUMULATIVE REPORT 06/19/2016 SERUM TROPONIN I Routine 06/18/2016 9:45 PM OIL TRUCK DRIVER BLOOD GLUCOSE, POC Routine 06/18/2016 7: 58 PM OIL TRUCK DRIVER BLOOD GLUCOSE, POC Routine 06/18/2016 5: 25 PM OIL TRUCK DRIVER PLASMA PARTIAL THROMBOPLASTIN TIME (PTT) Routine 06/18/2016 1:48 PM OIL TRUCK DRIVER URINE CREATININE Routine 06/18/2016 1:38 PM OIL TRUCK DRIVER SERUM TROPONIN I Routine 06/18/2016 1:38 PM OIL TRUCK DRIVER PLASMA BASIC METABOLIC PANEL Routine 06/18/2016 1:38 PM OIL TRUCK DRIVER BLOOD GLUCOSE, POC Routine 06/18/2016 11 :36 AM OIL TRUCK DRIVER US RETROPERITONEAL COMPLETE Routine 06/18/2016 8:56 AM OIL TRUCK DRIVER BLOOD GLUCOSE, POC Routine 06/18/2016 6: 52 AM OIL TRUCK DRIVER URINE MICROSCOPY Routine 06/18/2016 3:53 AM OIL TRUCK DRIVER URINALYSIS Routine 06/18/2016 3:53 AM OIL TRUCK DRIVER BLOOD GLUCOSE, POC Routine 06/18/2016 3: 52 AM OIL TRUCK DRIVER SERUM TROPONIN I Routine 06/18/2016 3:44 AM OIL TRUCK DRIVER SERUM LIPID PANEL Routine 06/18/2016 3:4 4 AM OIL TRUCK DRIVER SERUM IRON PROFILE Routine 06/18/2016 3: 44 AM OIL TRUCK DRIVER SERUM FERRITIN Routine 06/18/2016 3:44 AM OIL TRUCK DRIVER SERUM CREATINE KINASE (CK) Routine 06/18 3:44 AM OIL TRUCK DRIVER PLASMA PROTHROMBIN TIME (PT) Routine 06/18/2016 3:44 AM OIL TRUCK DRIVER PLASMA PARTIAL THROMBOPLASTIN TIME (PTT) Routine 06/18/2016 3:44 AM OIL TRUCK DRIVER PLASMA BASIC METABOLIC PANEL Routine 06/18/2016 3:44 AM OIL TRUCK DRIVER BLOOD HEMOGLOBIN A1C Routine 06/18/2016 3:44 AM OIL TRUCK DRIVER BLOOD CELL COUNT Routine 06/18/2016 3:44 AM OIL TRUCK DRIVER BLOOD CELL COUNT Routine 06/18/2016 3:44 AM OIL TRUCK DRIVER BLOOD B-TYPE NATRIURETIC PEPTIDE (BNP) Routine 06/18/2016 3:44 AM OIL TRUCK DRIVER BLOOD GLUCOSE, POC Routine 06/18/2016 12 :37 AM OIL TRUCK DRIVER ELECTROCARDIOGRAPHY (ECG) 06/18/2016 ELECTROCARDIOGRAPHY (ECG) 06/18/2016 STRESS TEST ONLY, DOBUTAMINE 06/18/2016 BLOOD GLUCOSE, POC Routine 06/17/2016 11 :58 PM OIL TRUCK DRIVER BLOOD GLUCOSE, POC Routine 06/17/2016 10 :16 PM OIL TRUCK DRIVER BLOOD GLUCOSE, POC Routine 06/17/2016 8: 16 PM OIL TRUCK DRIVER PLASMA PROTHROMBIN TIME (PT) Routine 06/17/2016 6:42 PM OIL TRUCK DRIVER PLASMA PARTIAL THROMBOPLASTIN TIME (PTT) Routine 06/17/2016 6:42 PM OIL TRUCK DRIVER XR CHEST PA LATERAL 2 VIEWS Routine 06/17/2016 4:32 PM OIL TRUCK DRIVER SERUM TROPONIN I Routine 06/17/2016 4:19 PM OIL TRUCK DRIVER SERUM THYROXINE (T4), FREE Routine 06/17 4:19 PM OIL TRUCK DRIVER SERUM THYROID-STIMULATING HORMONE (TSH) Routine 06/17/2016 4:19 PM OIL TRUCK DRIVER SERUM MAGNESIUM Routine 06/17/2016 4:19 PM OIL TRUCK DRIVER PLASMA PHOSPHORUS Routine 06/17/2016 4:1 9 PM OIL TRUCK DRIVER PLASMA HEPATIC FUNCTION PANEL Routine 06/17/2016 4:19 PM OIL TRUCK DRIVER PLASMA BASIC METABOLIC PANEL Routine 06/17/2016 4:19 PM OIL TRUCK DRIVER BLOOD CELL COUNT (CBC) Routine 7 4:19 PM OIL TRUCK DRIVER BLOOD CELL MORPHOLOGIC EXAM Routine 06/17/2016 4:19 PM OIL TRUCK DRIVER BLOOD GLUCOSE, POC Routine 06/17/2016 4: 00 PM OIL TRUCK DRIVER documented in this encounter Results * (ABNORMAL) Blood glucose, POC (06/19/2016 11:59 AM OIL TRUCK DRIVER) Glucose, POC, bld 287(H) 70 - 199 mg/dl CDR HISTORICAL RESULTS Blood specimen (specimen) 06/19/2016 11:59 AM OIL TRUCK DRIVER Denzel Mathews MD LAB BLOOD ORDERABLES Final Result Performing Organization Address [facility] de Phone Number CDR HISTORICAL RESULTS * (ABNORMAL) Plasma basic metabolic panel (06/19/2016 11:54 AM OIL TRUCK DRIVER) Sodium 137 135 - 145 mmol/L CDR [...] HISTORICAL RESULTS Plasma 06/19/2016 11:5 4 AM OIL TRUCK DRIVER Umer Delacruz MD LAB BLOOD ORDERABLES Final Result Performing Organization Address [facility] de Phone Number CDR HISTORICAL RESULTS * Blood glucose, POC (06/19/2016 6:47 AM OIL TRUCK DRIVER) Glucose, POC, bld 169 70 - 199 mg/dl CDR HISTORICAL RESULTS Blood specimen (specimen) 06/19/2016 6:47 AM OIL TRUCK DRIVER Denzel Mathews MD LAB BLOOD ORDERABLES Final Result Performing Organization Address [facility] Co de Phone Number CDR HISTORICAL RESULTS * (ABNORMAL) Plasma basic metabolic panel (06/19/2016 6:32 AM OIL TRUCK DRIVER) Sodium 145 135 - 145 mmol/L CDR [...] CDR HISTORICAL RESULTS Plasma 06/19/2016 6:32 AM OIL TRUCK DRIVER Lee Ann Lyn MD PhD LAB BLOOD ORDERAB LES Final Result Performing Organization Address [facility] Co de Phone Number CDR HISTORICAL RESULTS * Urine sodium (06/19/2016 6:32 AM OIL TRUCK DRIVER) Sodium, ur 98 mmol/L CDR HISTO RICAL RESULTS Urine 06/19/2016 6:32 AM OIL TRUCK DRIVER Result [facility] Umer Delacruz MD LAB BLOOD ORDERABLES Final Result Performing Organization Address [facility] Co de Phone Number CDR HISTORICAL RESULTS * Urine potassium (06/19/2016 6:32 AM OIL TRUCK DRIVER) Potassium, ur 22 mmol/L CDR HI STORICAL RESULTS Urine 06/19/2016 6:32 AM OIL TRUCK DRIVER Umer Delacruz MD LAB BLOOD ORDERABLES Final Result Performing Organization Address City/[facility]/ZIP Co de Phone Number CDR HISTORICAL RESULTS * Urine chloride (06/19/2016 6:32 AM OIL TRUCK DRIVER) Chloride, ur 86 mmol/L CDR HIS TORICAL RESULTS Urine 06/19/2016 6:32 AM OIL TRUCK DRIVER Result [facility] Umer Delacruz MD LAB BLOOD ORDERABLES Final Result Performing Organization Address [facility] Co de Phone Number CDR HISTORICAL RESULTS * DISCHARGE LABORATORY CUMULATIVE REPORT (06/19/2016) Narrative 06/19/2016 Ordered by an unspecified provider. Result [facility] Historical Provider LAB BLOOD ORDERABLES Phyllis l Result * ELECTROCARDIOGRAPHY (ECG) (06/19/2016) Narrative 06/19/2016 Ordered by an unspecified provider. Result [facility] Provider ECG ORDERABLES Final Res ult * ELECTROCARDIOGRAPHY (ECG) (06/19/2016) Narrative 06/19/2016 Ordered by an unspecified provider. Result [facility] Provider ECG ORDERABLES Final Res ult * (ABNORMAL) Serum troponin I (06/18/2016 9:45 PM OIL TRUCK DRIVER) Troponin I 0.05(H) 0.00 - 0.03 ng/ml CDR HISTORICAL RESULTS Comment: Interpretive Data Serial determinations are recommended for the diagnosis of myocardial infarction ([place] Definition of Myocardial Infarction. ??J Am Remi Cardiol 2012;60:1581-98). Current interpretive data was last revised on 13. Serum 06/18/2016 9:45 PM OIL TRUCK DRIVER Result [facility] Umer Delacruz MD LAB BLOOD ORDERABLES Final Result Performing Organization Address [facility] de Phone Number CDR HISTORICAL RESULTS * (ABNORMAL) Blood glucose, POC (06/18/2016 7:58 PM OIL TRUCK DRIVER) Glucose, POC, bld 242(H) 70 - 199 mg/dl CDR HISTORICAL RESULTS Blood specimen (specimen) 06/18/2016 7:58 PM OIL TRUCK DRIVER Result [facility] Denzel Mathews MD LAB BLOOD ORDERABLES Final Result Performing Organization Address [facility] Co de Phone Number CDR HISTORICAL RESULTS * Blood glucose, POC (06/18/2016 5:25 PM OIL TRUCK DRIVER) Glucose, POC, bld 148 70 - 199 mg/dl CDR HISTORICAL RESULTS Blood specimen (specimen) 06/18/2016 5:25 PM OIL TRUCK DRIVER Result [facility] Denzel Mathews MD LAB BLOOD ORDERABLES Final Result Performing Organization Address [facility] Phone Number CDR HISTORICAL RESULTS * (ABNORMAL) Plasma partial thromboplastin time (PTT) (06/18/2016 1:48 PM OIL TRUCK DRIVER) [facility] APTT 75.3(H) 25.0 - 37.0 seconds [facility] HISTORICAL RESULTS Comment: Interpretive Data Therapeutic heparin range:60.0 - 94.0 sec based on correlation with therapeutic heparin activity range of 0.3 -0.7 Units/mL. Current interpretive data was last revised on 2011. Plasma 06/18/2016 1:48 PM OIL TRUCK DRIVER Result [facility] Eddie Romero MD PhD LAB BLOOD ORDERABLES Final Result Performing Organization Address [facility] Phone Number [facility] HISTORICAL RESULTS * (ABNORMAL) Plasma basic metabolic panel (06/18/2016 1:38 PM OIL TRUCK DRIVER) [facility] Sodium 140 135 - 145 mmol/L [...] CDR HISTORICAL RESULTS Plasma 06/18/2016 1:38 PM OIL TRUCK DRIVER Result [facility] Eddie Romero MD PhD LAB BLOOD ORDERABLES Final Result Performing Organization Address [facility] de Phone Number CDR HISTORICAL RESULTS * (ABNORMAL) Serum troponin I (06/18/2016 1:38 PM OIL TRUCK DRIVER) Troponin I 0.05(H) 0.00 - 0.03 ng/ml CDR HISTORICAL RESULTS Comment: Interpretive Data Serial determinations are recommended for the diagnosis of myocardial infarction ([place] Definition of Myocardial Infarction. ??J Am Remi Cardiol 2012;60:1581-98). Current interpretive data was last revised on 13. Serum 06/18/2016 1:38 PM OIL TRUCK DRIVER us Eddie Romero MD PhD LAB BLOOD ORDERABLES Final Result Performing Organization Address [facility] Phone Number CDR HISTORICAL RESULTS * Urine creatinine (06/18/2016 1:38 PM OIL TRUCK DRIVER) Creatinine, ur 32 mg/dl CDR H ISTORICAL RESULTS Urine 06/18/2016 1:38 PM OIL TRUCK DRIVER Umer Delacruz MD LAB BLOOD ORDERABLES Final Result Performing Organization Address [facility] de Phone Number CDR HISTORICAL RESULTS * Blood glucose, POC (06/18/2016 11:36 AM OIL TRUCK DRIVER) Glucose, POC, bld 138 70 - 199 mg/dl CDR HISTORICAL RESULTS Blood specimen (specimen) 06/18/2016 11:36 AM OIL TRUCK DRIVER Denzel Mathews MD LAB BLOOD ORDERABLES Final Result Performing Organization Address [facility] de Phone Number CDR HISTORICAL RESULTS * US Retroperitoneal Complete (06/18/2016 8:56 AM OIL TRUCK DRIVER) Anatomical Region Laterality Modality Abdomen N/A Ultrasound 06/18/2016 8:56 AM OIL TRUCK DRIVER Narrative 06/18/2016 9:46 AM OIL TRUCK DRIVER FABIO CLARK M.D. LYNNE SANDHU FINAL REPORT The radiology attending physician has personally reviewed this study, and has reviewed and/or edited this written report and agrees with it. ACC# ??Date Time ??Exam [id number] Jun 18, 2016 08:56:00 [id number] US Retroper cmp EXAMINATION: ?COMPLETE RENAL SONOGRAM [...] FABIO CLARK M.D. on Jun ??2016 ??9:46A [id number] Procedure Note Provider, MD Aldair - 09/17/2016 FABIO CLARK M.D. LYNNE SANDHU FINAL REPORT The radiology attending physician has personally reviewed this study, and has reviewed and/or edited this written report and agrees with it. ACC# Date Time Exam [id number] Jun 18, 2016 08:56:00 [id number] US Retroper cmp EXAMINATION: COMPLETE RENAL SONOGRAM [...] CLARK M.D. on Jun 18 2016 9:46A [id number] us Historical Provider IMHenna US PROCEDURES Final R esult * (ABNORMAL) Blood glucose, POC (06/18/2016 6:52 AM OIL TRUCK DRIVER) Glucose, POC, bld 209(H) 70 - 199 mg/dl CDR HISTORICAL RESULTS Blood specimen (specimen) 06/18/2016 6:52 AM OIL TRUCK DRIVER Denzel Mathews MD LAB BLOOD ORDERABLES Final Result Performing Organization Address [facility] de Phone Number CDR HISTORICAL RESULTS * (ABNORMAL) Urinalysis (06/18/2016 3:53 AM OIL TRUCK DRIVER) Color, ur Straw Yellow CDR HISTOR ICAL [...] CDR HISTORICAL RESULTS Urine 06/18/2016 3:53 AM OIL TRUCK DRIVER Eloisa Mo NP LAB BLOOD ORDERABLES Final R esult Performing Organization Address [facility] de Phone Number CDR HISTORICAL RESULTS * (ABNORMAL) Urine microscopy (06/18/2016 3:53 AM OIL TRUCK DRIVER) RBC, ur 2 0 - 3 /hpf [...] H ISTORICAL RESULTS Urine 06/18/2016 3:53 AM OIL TRUCK DRIVER Eloisa Mo AIRCRAFT TECHNICIAN LAB BLOOD ORDERABLES Final R esult Performing Organization Address [facility] de Phone Number CDR HISTORICAL RESULTS * (ABNORMAL) Blood glucose, POC (06/18/2016 3:52 AM OIL TRUCK DRIVER) [facility] Glucose, POC, bld 274(H) 70 - 199 mg/dl CDR HISTORICAL RESULTS Blood specimen (specimen) 06/18/2016 3:52 AM OIL TRUCK DRIVER Denzel Mathews MD LAB BLOOD ORDERABLES Final Result Performing Organization Address [facility] de Phone Number CDR HISTORICAL RESULTS * Blood B-type natriuretic peptide (BNP) (06/18/2016 3:44 AM OIL TRUCK DRIVER) [facility] BNP 29 0 - 100 pg/ml CDR HISTORICAL RESULTS Blood specimen (specimen) 06/18/2016 3:44 AM OIL TRUCK DRIVER Eddie Romero MD PhD LAB BLOOD ORDERABLES Final Result Performing Organization Address [facility] de Phone Number CDR HISTORICAL RESULTS * (ABNORMAL) Blood cell count [CBC] express (06/18/2016 3:44 AM OIL TRUCK DRIVER) [facility] WBC 8.6 3.8 - 9.9 K/cumm [...] RESULTS Blood specimen (specimen) 06/18/2016 3:44 AM OIL TRUCK DRIVER Eddie Romero MD PhD LAB BLOOD ORDERABLES Final Result Performing Organization Address [facility] de Phone Number CDR HISTORICAL RESULTS * Serum creatine kinase (CK) (06/18/2016 3:44 AM OIL TRUCK DRIVER) CK 82 20 - 200 Units/L CDR HISTORICAL RESULTS Serum 06/18/2016 3:44 AM OIL TRUCK DRIVER Eddie Romero MD PhD LAB BLOOD ORDERABLES Final Result Performing Organization Address [facility] de Phone Number CDR HISTORICAL RESULTS * (ABNORMAL) Serum lipid panel (06/18/2016 3:44 AM OIL TRUCK DRIVER) Cholesterol 210(H) 30 - 200 mg/dl CDR [...] last revised 2015. Serum 06/18/2016 3:44 AM OIL TRUCK DRIVER Eddie Romero MD PhD LAB BLOOD ORDERABLES Final Result Performing Organization Address [facility] de Phone Number CDR HISTORICAL RESULTS * Plasma partial thromboplastin time (PTT) (06/18/2016 3:44 AM OIL TRUCK DRIVER) APTT 35.7 25.0 - 37.0 seconds CDR HISTORICAL RESULTS Comment: Interpretive Data Therapeutic heparin range:60.0 - 94.0 sec based on correlation with therapeutic heparin activity range of 0.3 -0.7 Units/mL. Current interpretive data was last revised on 2011. Plasma 06/18/2016 3:44 AM OIL TRUCK DRIVER Eddie Romero MD PhD LAB BLOOD ORDERABLES Final Result Performing Organization Address [facility] de Phone Number CDR HISTORICAL RESULTS * (ABNORMAL) Plasma basic metabolic panel (06/18/2016 3:44 AM OIL TRUCK DRIVER) Sodium 138 135 - 145 mmol/L CDR [...] CDR HISTORICAL RESULTS Plasma 06/18/2016 3:44 AM OIL TRUCK DRIVER Eddie Romero MD PhD LAB BLOOD ORDERABLES Final Result Performing Organization Address [facility] Co de Phone Number CDR HISTORICAL RESULTS * (ABNORMAL) Serum iron profile (06/18/2016 3:44 AM OIL TRUCK DRIVER) Iron 47 35 - 145 mcg/dl CDR HISTORICAL RESULTS UIBC 246 112 - 347 mcg/dl CDR HISTORICAL RESULTS TIBC 293 250 - 400 mcg/dl CDR HISTORICAL RESULTS Transferrin saturation 16(L) 20 - 50 % CDR HISTORICAL RESULTS Serum 06/18/2016 3:44 AM OIL TRUCK DRIVER Eddie Romero MD PhD LAB BLOOD ORDERABLES Final Result Performing Organization Address [facility] de Phone Number CDR HISTORICAL RESULTS * Serum troponin I (06/18/2016 3:44 AM OIL TRUCK DRIVER) Troponin I <0.03 0.00 - 0.03 ng/ml CDR HISTORICAL RESULTS Comment: Interpretive Data Serial determinations are recommended for the diagnosis of myocardial infarction ([place] Definition of Myocardial Infarction. ??J Am Remi Cardiol 2012;60:1581-98). Current interpretive data was last revised on 13. Serum 06/18/2016 3:44 AM OIL TRUCK DRIVER Eddie Romero MD PhD LAB BLOOD ORDERABLES Final Result Performing Organization Address [place]/[facility] Co de Phone Number CDR HISTORICAL RESULTS * Plasma prothrombin time (PT) (06/18/2016 3:44 AM OIL TRUCK DRIVER) Pathologist [facility] [place] Prothrombin time (PT) 11.2 9.2 - 14.0 [...] updated copy of the Tool Book at [email or web address] Current Interpretive Data was last revised 2011. Plasma 06/18/2016 3:44 AM OIL TRUCK DRIVER Eddie Romero MD PhD LAB BLOOD ORDERABLES Final Result Performing Organization Address [facility] de Phone Number CDR HISTORICAL RESULTS * Serum ferritin (06/18/2016 3:44 AM OIL TRUCK DRIVER) Pathologist [facility] [place] Ferritin 111 15 - 150 ng/ml CDR HISTORICAL RESULTS Serum 06/18/2016 3:44 AM OIL TRUCK DRIVER us Eddie Romero MD PhD LAB BLOOD ORDERABLES Final Result Performing Organization Address [facility] de Phone Number CDR HISTORICAL RESULTS * (ABNORMAL) Blood cell count [CBC] express (06/18/2016 3:44 AM OIL TRUCK DRIVER) Pathologist [facility] [place] WBC 8.8 3.8 - 9.9 K/cumm CDR [...] RESULTS Blood specimen (specimen) 06/18/2016 3:44 AM OIL TRUCK DRIVER Eddie Romero MD PhD LAB BLOOD ORDERABLES Final Result Performing Organization Address [facility] Co de Phone Number CDR HISTORICAL RESULTS * (ABNORMAL) Blood hemoglobin A1C (06/18/2016 3:44 AM OIL TRUCK DRIVER) Hgb A1C 9.0(H) 4.0 - 6.0 % CDR HISTORICAL RESULTS Estimated average glucose 212 mg/dl CDR HISTORIC AL RESULTS Comment: The ADA recommends reporting an estimated Average Glucose (eAG) with all Hemoglobin A1c results using the equation derived from a study of 507 normal and diabetic adults. ??Minority populations were underrepresented and children were not included. ??(Diabetes Care 31:9857-3166, 2007). ??The eAG is not equivalent to a fasting glucose. Blood specimen (specimen) 06/18/2016 3:44 AM OIL TRUCK DRIVER Eddie Romero MD PhD LAB BLOOD ORDERABLES Final Result Performing Organization Address [facility]/ZIP Co de Phone Number CDR HISTORICAL RESULTS * (ABNORMAL) Blood glucose, POC (06/18/2016 12:37 AM OIL TRUCK DRIVER) Glucose, POC, bld 250(H) 70 - 199 mg/dl CDR HISTORICAL RESULTS Blood specimen (specimen) 06/18/2016 12:37 AM OIL TRUCK DRIVER Result [facility] Nii Browning MD LAB BLOOD ORDERABLES Final Re sult Performing Organization Address [facility] Co de Phone Number CDR HISTORICAL RESULTS * STRESS TEST ONLY, DOBUTAMINE (06/18/2016) Anatomical Region Laterality Modality Other Narrative 06/18/2016 Ordered by an unspecified provider. Result [facility] Historical Provider CV STRESS PROCEDURES Phyllis l Result * ELECTROCARDIOGRAPHY (ECG) (06/18/2016) Narrative 06/18/2016 Ordered by an unspecified provider. Result [facility] Provider ECG ORDERABLES Final Res ult * ELECTROCARDIOGRAPHY (ECG) (06/18/2016) Narrative 06/18/2016 Ordered by an unspecified provider. Result [facility] Historical Provider ECG ORDERABLES Final Res ult * (ABNORMAL) Blood glucose, POC (06/17/2016 11:58 PM OIL TRUCK DRIVER) Glucose, POC, bld 202(H) 70 - 199 mg/dl CDR HISTORICAL RESULTS Blood specimen (specimen) 06/17/2016 11:58 PM OIL TRUCK DRIVER Result [facility] Nii Browning MD LAB BLOOD ORDERABLES Final Re sult Performing Organization Address [facility] Co de Phone Number CDR HISTORICAL RESULTS * (ABNORMAL) Blood glucose, POC (06/17/2016 10:16 PM OIL TRUCK DRIVER) Glucose, POC, bld 64(L) 70 - 199 mg/dl CDR HISTORICAL RESULTS Blood specimen (specimen) 06/17/2016 10:16 PM OIL TRUCK DRIVER Result [facility] Nii Browning MD LAB BLOOD ORDERABLES Final Re sult Performing Organization Address [facility] Co de Phone Number CDR HISTORICAL RESULTS * Blood glucose, POC (06/17/2016 8:16 PM OIL TRUCK DRIVER) Glucose, POC, bld 78 70 - 199 mg/dl CDR HISTORICAL RESULTS Blood specimen (specimen) 06/17/2016 8:16 PM OIL TRUCK DRIVER Notinfile Unknown LAB BLOOD ORDERABLES Final Res ult CDR HISTORICAL RESULTS * Plasma partial thromboplastin time (PTT) (06/17/2016 6:42 PM OIL TRUCK DRIVER) APTT 26.3 25.0 - 37.0 seconds CDR HISTORICAL RESULTS Comment: Interpretive Data Therapeutic heparin range:60.0 - 94.0 sec based on correlation with therapeutic heparin activity range of 0.3 -0.7 Units/mL. Current interpretive data was last revised on 2011. Plasma 06/17/2016 6:42 PM OIL TRUCK DRIVER Eloisa Mo AIRCRAFT TECHNICIAN LAB BLOOD ORDERABLES Final R esult Performing Organization Address [facility]/State/ZIP Co de Phone Number CDR HISTORICAL RESULTS * Plasma prothrombin time (PT) (06/17/2016 6:42 PM OIL TRUCK DRIVER) Prothrombin time (PT) 11.2 9.2 - 14.0 [...] updated copy of the Tool Book at [email or web address].nsf Current Interpretive Data was last revised 2011. Plasma 06/17/2016 6:42 PM OIL TRUCK DRIVER us Eloisa Mo AIRCRAFT TECHNICIAN LAB BLOOD ORDERABLES Final R esult CDR HISTORICAL RESULTS * XR Chest Pa Lateral 2 Views (06/17/2016 4:32 PM OIL TRUCK DRIVER) Anatomical Region Laterality Modality Body, Chest N/A Radiographic Luba ging 06/17/2016 4:32 PM OIL TRUCK DRIVER Narrative 06/17/2016 5:17 PM OIL TRUCK DRIVER Nahid SANCHEZ M.D. FINAL REPORT The radiology attending physician has personally reviewed this study, and has reviewed and/or edited this written report and agrees with it. ACC# ??Date Time ??Exam [id number] Jun 17, 2016 16:32:00 [id number] Chest 2 views Frontl & Lat EXAMINATION: [...] CERRATO M.D. on Jun 17 2016 ??5:16P [id number] Procedure Note Provider, MD Aldair - 10/19/2016 Nahid SANCHEZ M.D. FINAL REPORT The radiology attending physician has personally reviewed this study, and has reviewed and/or edited this written report and agrees with it. ACC# Date Time Exam [id number] Jun 17, 2016 16:32:00 [id number] Chest 2 views Frontl & Lat EXAMINATION: [...] CERRATO M.D. on Jun 17 2016 5:16P [id number] Historical Provider IMG XR PROCEDURES Final R esult * (ABNORMAL) Serum thyroid-stimulating hormone (TSH) (06/17/2016 4:19 PM OIL TRUCK DRIVER) TSH 0.09(L) 0.30 - 4.20 mcIUnits/ ml CDR HISTORICAL RESULTS Comment: Interpretive Data Hyperthyroid: ??<0.1 mcIUnit/mL Hypothyroid: ??>12.0 mcIUnit/mL Current interpretive data was last revised on 00. Serum 06/17/2016 4:19 PM OIL TRUCK DRIVER Vincent Mccann MD LAB BLOOD ORDERABLES Final Res ult Performing Organization Address [facility] Co de Phone Number CDR HISTORICAL RESULTS * Plasma hepatic function panel (06/17/2016 4:19 PM OIL TRUCK DRIVER) Bilirubin 0.2 0.1 - 1.2 mg/dl CDR [...] CDR HISTORICAL RESULTS Plasma 06/17/2016 4:19 PM OIL TRUCK DRIVER Vincent Mccann MD LAB BLOOD ORDERABLES Final Res ult Performing Organization Address City/State/[facility] Co de Phone Number CDR HISTORICAL RESULTS * (ABNORMAL) Plasma basic metabolic panel (06/17/2016 4:19 PM OIL TRUCK DRIVER) Sodium 136 135 - 145 mmol/L CDR [...] CDR HISTORICAL RESULTS Plasma 06/17/2016 4:19 PM OIL TRUCK DRIVER Vincent Mccann MD LAB BLOOD ORDERABLES Final Res ult Performing Organization Address [facility] de Phone Number CDR HISTORICAL RESULTS * Serum troponin I (06/17/2016 4:19 PM OIL TRUCK DRIVER) Troponin I 0.03 0.00 - 0.03 ng/ml CDR HISTORICAL RESULTS Comment: Interpretive Data Serial determinations are recommended for the diagnosis of myocardial infarction (Third [place] Definition of Myocardial Infarction. ??J Am Remi Cardiol 2012;60:1581-98). Current interpretive data was last revised on 13. Serum 06/17/2016 4:19 PM OIL TRUCK DRIVER Vincent Mccann MD LAB BLOOD ORDERABLES Final Res ult Performing Organization Address City/[facility] Co de Phone Number CDR HISTORICAL RESULTS * (ABNORMAL) Plasma phosphorus (06/17/2016 4:19 PM OIL TRUCK DRIVER) Phosphorus, pl 5.4(H) 2.3 - 4.5 mg/dl CDR HISTORICAL RESULTS Plasma 06/17/2016 4:19 PM OIL TRUCK DRIVER Vincent Mccann MD LAB BLOOD ORDERABLES Final Res ult Performing Organization Address [facility] de Phone Number CDR HISTORICAL RESULTS * Serum magnesium (06/17/2016 4:19 PM OIL TRUCK DRIVER) Pathologist [facility] [place] Magnesium 2.3 1.4 - 2.5 mg/dl CDR HISTORICAL RESULTS Serum 06/17/2016 4:19 PM OIL TRUCK DRIVER Vincent Mccann MD LAB BLOOD ORDERABLES Final Res ult Performing Organization Address [facility] de Phone Number CDR HISTORICAL RESULTS * (ABNORMAL) Serum thyroxine (T4), free (06/17/2016 4:19 PM OIL TRUCK DRIVER) Pathologist [facility] [place] Free T4 1.74(H) 0.90 - 1.70 ng/dl CDR HISTORICAL RESULTS Serum 06/17/2016 4:19 PM OIL TRUCK DRIVER Vincent Mccann MD LAB BLOOD ORDERABLES Final Res ult Performing Organization Address [facility] de Phone Number CDR HISTORICAL RESULTS * Blood cell count (CBC) (06/17/2016 4:19 PM OIL TRUCK DRIVER) Pathologist [facility] [place] WBC 9.9 3.8 - 9.9 K/cumm CDR [...] RESULTS Blood specimen (specimen) 06/17/2016 4:19 PM OIL TRUCK DRIVER Vincent Mccann MD LAB BLOOD ORDERABLES Final Res ult Performing Organization Address [facility]/State/ZIP Co de Phone Number CDR HISTORICAL RESULTS * (ABNORMAL) Blood cell morphologic exam (06/17/2016 4:19 PM OIL TRUCK DRIVER) Neutrophils 67.5 % CDR HIST ORICAL RESULTS [...] RESULTS Blood specimen (specimen) 06/17/2016 4:19 PM OIL TRUCK DRIVER Vincent Mccann MD LAB BLOOD ORDERABLES Final Res ult Performing Organization Address [facility] Co de Phone Number CDR HISTORICAL RESULTS * Blood glucose, POC (06/17/2016 4:00 PM OIL TRUCK DRIVER) Glucose, POC, bld 138 70 - 199 mg/dl CDR HISTORICAL RESULTS Blood specimen (specimen) 06/17/2016 4:00 PM OIL TRUCK DRIVER Notinfile Unknown LAB BLOOD ORDERABLES Final Res ult CDR HISTORICAL RESULTS documented in this encounter Visit Diagnoses Diagnosis Chondrocostal junction syndrome Tietze's disease Acute kidney failure (HCC) Acute kidney failure, unspecified Hyperkalemia Hyperpotassemia Zoster without complications Type 2 diabetes mellitus without complications (CMS/HCC) (HCC) half-way current use of insulin (CMS/HCC) (HCC) Hypothyroidism Unspecified hypothyroidism Hyperlipidemia Other and unspecified hyperlipidemia Essential (primary) hypertension Unspecified essential hypertension Glaucoma Unspecified glaucoma Abnormality of gait and mobility 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
--- OUTSIDE RECORDS SUMMARY | 2024-05-20 08:00 | XMS_ITS | Encounter Summary ---
Author Organization [facility] Facility Care Team Providers Care Orientation And Mobility Instructor Name Role Phone Unavailable Primary Care Provider Unavailabl e Encounter Details Date Type Department Care Team (Late st Contact Info) Description 01/04/2015 9:52 AM CDT - 01/04/2015 4:00 PM CDT Hospital Encounter [facility] Madalyn Teresa, VENEER JOINTER OFFBEARER [address] [facility] [address] [place] [address] Pain in joint, lower leg Social History Tobacco Use Types Packs/Day Years Used Date Smoking Tobacco: Never Comments Unknown Sex and Gender Information Value Date Recorded Sex Assigned at Not on file Legal Sex Female 3:59 AM KINDERGARTEN AIDE Gender Identity Female 05/13/2021 4:21 PM KINDERGARTEN AIDE Sexual Orientation Not on file documented [...] F FINAL REPORT ACC# ??Date Time ??Exam [id number] Jan 04, 2015 10:14:00 [id number] Knee 3 views R [id number] Jan 04, 2015 10:14:00 41928 Knee 3 views L EXAMINATION: ? 1. [...] Nahid PETERSON on Jan 04 2015 10:18A [id number] Procedure Note Provider, Aldair, - 09/07/2016 Nahid PETERSON FINAL REPORT ACC# Date Time Exam [id number] Jan 04, 2015 10:14:00 60811 Knee 3 views R [id number] Jan 04, 2015 10:14:00 43704 Knee 3 views L EXAMINATION: 1. Left [...] Nahid PETERSON on Jan 04 2015 10:18A [id number] us Historical Provider IMG XR PROCEDURES Final R esult * KNEE RADIOGRAPHY, FRONTAL (AP), LATERAL, OBLIQUE (01/04/2015 10:14 AM CDT) Anatomical Region Laterality Modality N/A Radiographic Luba ging 01/04/2015 10:1 4 AM CDT Narrative 01/04/2015 10:18 AM CDT Nahid PETERSON FINAL REPORT ACC# ??Date Time ??Exam [id number] Jan 04, 2015 10:14:00 [id number] Knee 3 views R [id number] Jan 04, 2015 10:14:00 29510 Knee 3 views L EXAMINATION: ? 1. [...] Nahid PETERSON on Jan 04 2015 10:18A [id number] Procedure Note Provider, Aldair, - 09/07/2016 Nahid PETERSON FINAL REPORT ACC# Date Time Exam [id number] Jan 04, 2015 10:14:00 [id number] Knee 3 views R [id number] Jan 04, 2015 10:14:00 96458 Knee 3 views L EXAMINATION: 1. Left [...] Nahid PETERSON on Jan 04 2015 10:18A [id number] us Historical Provider IMHenna XR PROCEDURES Final R esult documented in this encounter Visit Diagnoses Diagnosis Pain in joint, lower leg documented in this encounter
--- OUTSIDE RECORDS SUMMARY | 2024-05-20 08:00 | XMS_ITS | Encounter Summary ---
Author Organization [facility] Healthcare Address [address] [place] [address] Care Team Providers Care Log Sawyer Name Role Phone Joaquin Melchor MD Primary Care Prov ider Encounter Details Date Type Department Care Team (Latest Contact Info) Description 12/03/2016 11:09 AM CDT - 12/03/2016 11:59 PM [facility] Hospital Encounter [facility] OP INTERIM [phone] Merna Bell MD [address] [facility] [address] [address] Discharge Disposition: Discharge to home or self care Social History Tobacco Use Types Packs/Day Years Used Date Smoking Tobacco: Never Comments Unknown Sex and Gender Information Value Date Recorded Sex Assigned at Not on file Legal Sex Female 3:59 AM OBSERVER HELPER Gender Identity Female 05/13/2021 4:21 PM OBSERVER HELPER Sexual Orientation Not on file documented [...] D 25-OH 31.3 30.0 - 100.0 ng/mL [facility] Blood specimen (specimen) 12/03/2016 11:33 AM CDT 12/03/2016 11:43 AM CDT Merna Bell MD LAB BLOOD ORDERABLES Edited R esult - Final Performing Organization Address City/[facility]/ZIP Co de Phone Number [facility] [place] [address] * ALBUMIN / CREATININE URINE RATIO, RANDOM (12/03/2016 11:33 AM CDT) Pathologist [facility] Microalbumin, ur 20.6 mcg/mL [facility] Creatinine, ur 131.50 mg/dL [facility] Microalbumin/cr eat ratio 15.7 0.1 - 29.9 mcg/mg Cr [facility] Urine 12/03/2016 11:3 3 AM CDT 12/03/2016 11:50 AM CDT Merna Bell MD LAB BLOOD BANK TEST ORDERABLE S Final Result [facility] [place] [address] * PTH, intact (12/03/2016 11:33 AM CDT) PTH 57 15 - 65 pg/mL [facility] Blood specimen (specimen) 12/03/2016 11:33 AM CDT 12/03/2016 11:43 AM CDT Merna Bell MD LAB BLOOD ORDERABLES Final Re sult [facility] [place] [address] * (ABNORMAL) Renal function panel (12/03/2016 11:33 AM CDT) Pathologist [facility] Sodium 143 135 - 145 mmol/L [facility] Potassium, pl 4.2 3.3 - 4.9 mmol/L [facility] Chloride 109 97 - 110 mmol/L [facility] CO2 23 22 - 32 mmol/L [facility] Anion gap 11 2 - 15 mmol/L [facility] Glucose 130 70 - 199 mg/dL [facility] BUN 28(H) 8 - 25 mg/dL [facility] Creatinine 0.88 0.60 - 1.10 mg/dL [facility] Calcium 9.5 8.5 - 10.3 mg/dL [facility] Phosphorus, pl 4.2 2.3 - 4.5 mg/dL [facility] Albumin 4.2 3.5 - 5.0 g/dL [facility] Blood specimen (specimen) 12/03/2016 11:33 AM CDT 12/03/2016 11:43 AM CDT Merna Bell MD LAB BLOOD ORDERABLES Final Re sult [facility] [place] [address] * DISCHARGE LABORATORY CUMULATIVE REPORT (12/03/2016 12:00 AM CDT) Narrative 12/03/2016 12:00 AM CDT Ordered by an unspecified provider. Historical Provider LAB BLOOD ORDERABLES Phyllis l Result documented in this encounter Visit Diagnoses Not on filedocumented in this encounter Care Teams Log Sawyer Relationship Specialty Start Date End Date Joaquin Melchor MD [address] [place] [address] PCP - General 06/25/16 06/08/18 documented as of this encounter
--- OUTSIDE RECORDS SUMMARY | 2024-05-20 08:00 | XMS_ITS | Encounter Summary ---
Author Organization [facility] Facility Care Team Providers Care Application Integration Specialist Name Role Phone Unavailable Primary Care Provider Unavailabl e Encounter Details Date Type Department Care Team (Late st Contact Info) Description 07/08/2012 - 05/12/2013 11:59 PM ELECTRICIAN ELEVATOR MAINTENANCE Hospital Encounter [facility] Social History Tobacco Use Types Packs/Day Years Used Date Smoking Tobacco: Never Comments Unknown Sex and Gender Information Value Date Recorded Sex Assigned at Not on file Legal Sex Female 3:59 AM ELECTRICIAN ELEVATOR MAINTENANCE Gender Identity Female 05/13/2021 4:21 PM ELECTRICIAN ELEVATOR MAINTENANCE Sexual Orientation Not on file documented as [...] LABORATORY CUMULATIVE REPORT Routine 07/08/2012 5:10 AM ELECTRICIAN ELEVATOR MAINTENANCE BLOOD CELL COUNT (CBC) Routine 07/07/2012 5:17 PM ELECTRICIAN ELEVATOR MAINTENANCE documented in this encounter Results * Discharge Laboratory Cumulative Report (07/08/2012 5:10 AM ELECTRICIAN ELEVATOR MAINTENANCE) 07/08/2012 5:10 AM ELECTRICIAN ELEVATOR MAINTENANCE Narrative HISTORICAL RESULTS - 07/08/2012 5:10 AM ELECTRICIAN ELEVATOR MAINTENANCE ? [facility] ? Department of Laboratories ?[facility] [address] ?[facility] ?Studies ?[place] [employer] ?[address] ?[id number] ?[place] [address] Patient Name: ? LEVON FIGUEREDO Med Rec Number: ?? [id number] Date of : ?1950 Gender/Age: ? Female [...] Lymph Pct Auto ??29.4 ?% ? 20.0-54.3 [place] Pct Auto ?? 4.6 ? % ? 4.3-13.5 Eos Pct Auto ?0.8 ? % ? 0.0-6.0 Baso Pct Auto ?? 0.6 ? % ? 0.0-3.0 Neut Abs Auto ?? 6.2 ? K/cumm ??1.8-6.6 Lymph Abs Auto ??2.8 ? K/cumm ??1.2-3.3 [place] Abs Auto ?? 0.4 ? K/cumm ??0.2-1.2 Eos Abs Auto ?0.1 ? K/cumm ??0.0-0.5 Baso Abs Auto ?? 0.1 ? K/cumm ??0.0-0.2 us Historical Provider LAB BLOOD ORDERABLES Phyllis l Result HISTORICAL RESULTS * Blood cell count (CBC) (07/07/2012 5:17 PM ELECTRICIAN ELEVATOR MAINTENANCE) WBC 9.6 3.8 - 9.8 K/cumm HISTORICAL [...] RESULTS Blood specimen (specimen) 07/07/2012 5:17 PM ELECTRICIAN ELEVATOR MAINTENANCE us Markie Vicente Jr., MD LAB BLOOD ORDERABLES Final Result HISTORICAL RESULTS documented in this encounter Visit Diagnoses Not on filedocumented in this encounter
--- OUTSIDE RECORDS SUMMARY | 2024-05-20 08:00 | XMS_ITS | Encounter Summary ---
Author Organization [facility] Facility Care Team Providers Care Epic Stork Specialists Name Role Phone Unavailable Primary Care Provider Unavailabl e Encounter Details Date Type Department Care Team (Late st Contact Info) Description 06/19/2010 - 06/19/2010 11:59 PM BOTTOMER OPERATOR Hospital Encounter [facility] Merna Vidal MD [address] [address] Type 2 or unspecified type diabetes mellitus; Other and unspecified hyperlipidemia; Vitamin D deficiency Social History Tobacco Use Types Packs/Day Years Used Date Smoking Tobacco: Never Assessed Comments Unknown Sex and Gender Information Value Date Recorded Sex Assigned at Not on file Legal Sex Female 3:59 AM BOTTOMER OPERATOR Gender Identity Female 05/13/2021 4:21 PM BOTTOMER OPERATOR Sexual Orientation Not on file documented [...]
--- OUTSIDE RECORDS SUMMARY | 2024-05-20 08:00 | XMS_ITS | Encounter Summary ---
Author Organization [facility] Healthcare Address [address] [place] [address] Care Team Providers Care Senior Account Director Name Role Phone Joaquin Melchor MD Primary Care Prov ider Encounter Details Date Type Department Care Team (Latest Contact Info) Description 06/25/2016 2:35 PM ASSISTANT HAIRSTYLIST - 06/25/2016 11:59 PM [facility] Hospital Encounter [facility] OP INTERIM [phone] Merna Bell MD [address] [facility] [address] [address] Discharge Disposition: Discharge to home or self care Social History Tobacco Use Types Packs/Day Years Used Date Smoking Tobacco: Never Comments Unknown Sex and Gender Information Value Date Recorded Sex Assigned at Not on file Legal Sex Female 3:59 AM ASSISTANT HAIRSTYLIST Gender Identity Female 05/13/2021 4:21 PM ASSISTANT HAIRSTYLIST Sexual Orientation Not on file documented as [...] filedocumented in this encounter Care Teams Senior Account Director Relationship Specialty Start Date End Date Joaquin Melchor MD [address] [place] [address] PCP - General 06/25/16 06/08/18 documented as of this encounter
== END 2024-05-13 15:16 | disposition home or self-care (01) ==
PROVIDERS: Emergency Provider Emergency Medicine
DX: S16.1XXA Strain of muscle, fascia and tendon at neck level, initial encounter (principal); I10 Essential (primary) hypertension; E11.9 Type 2 diabetes mellitus without complications; E78.5 Hyperlipidemia, unspecified; M47.812 Spondylosis without myelopathy or radiculopathy, cervical region; X58.XXXA Exposure to other specified factors, initial encounter
CPT/HCPCS: 70450; 72125; 87637; 99284; A9270

== ENCOUNTER 2024-07-22 20:17 | Emergency (ER) | payer MEDICARE, BC, SELFPAY ==
--- NOTE | ~2024-07-22 | XR_ITS ---
XR chest 2V Ordering provider: Cortez Nguyen MD History: 74 years Female with . chest pressure X 1.5 HOURS . Comparison: None. FINDINGS: MEDIASTINUM: The cardiac silhouette is not enlarged. Postoperative changes in the mediastinum. LUNGS: No infiltrates, effusions or pneumothorax. OTHER: No free air under the diaphragm. Degenerative changes of the spine. IMPRESSION: No acute cardiopulmonary pathology. Reviewed, dictated and finalized at location A.
--- NOTE | ~2024-07-22 | CT_ITS ---
Clinical Indication: Chest pain CT Scan of the Chest with Contrast: Technique: Contiguous sections were acquired throughout the chest after intravenous administration of 100 cc of Omnipaque 350. Dose reduction technique was used on this scan by utilizing automated expos ure control and iterative reconstruction technique. The dose-length product (DLP) was 518.97 mGy-cm. Findings: There is no evidence of any significant mediastinal, hilar or axillary lymphadenopathy. There is no f illing defect in the pulmonary arterial tree to suggest pulmonary embolus. There is no evidence of ao rtic dissection or aneurysm. There is no evidence of pleural or pericardial effusion. The lungs are clear. No pulmonary nodules or infiltrates are noted. Images through the upper abdomen reveal small hiatal hernia. 2.5 cm right adrenal nodule present. Impression: No evidence of pulmonary embolus, aortic dissection, or aortic aneurysm. Clear lungs. 2.5 cm right adrenal nodule, indeterminate. Consider follow-up MR to attempt to confirm benign adenom a. Reviewed, dictated and finalized at [facility]. Impression: No evidence of pulmonary embolus, aortic dissection, or aortic aneurysm. Clear lungs. 2.5 cm right adrenal nodule, indeterminate. Consider follow-up MR to attempt to confirm benign adenoma.
--- NOTE | 2024-07-22 20:19 | ECG_ITS ---
Test Date: 2024-07-22 20:26:01 Measurements Intervals [place] Rate: 101 P: 58 AK: 134 QRS: -79 QRSD: 138 T: 31 QT: 344 QTc: 446 Interpretive Statements SINUS TACHYCARDIA RIGHT BUNDLE BRANCH BLOCK [120+ ms QRS DURATION, UPRIGHT V1, 40+ ms S IN I/aVL/V4/V5/V6] LEFT ANTERIOR FASCICULAR BLOCK [QRS AXIS <= -45, QR IN I, RS IN II] POSSIBLE ANTERIOR MYOCARDIAL INFARCTION , OF INDETERMINATE AGE [30 ms Q WAVE IN V3/V4, OR R < 0.2 mV IN V4] No previous ECG available for comparison Electronically Signed On 07-23-2024 14:02:10 CDT by Mo Brown M.D.
--- OUTSIDE RECORDS SUMMARY | 2024-07-22 20:19 | XMS_ITS | Referral Summary ---
Author Organization [facility] Address [address] [place] [address] Care Team Providers Care Commercial Driver'S License Driver Name Role Phone Unavailable Primary Care Provider Unavailabl e Source Comments [facility],non-owned Affiliates and Associated Physician Practices is amultiple site organization consisting of ambulatory clinics and hospital sitesin [place], [place], [place] and [place]. This disclosure is being madepursuant to the Care Everywhere program and may not contain all information available regarding this patient. Last updated 18.[facility] [employer] Social History Tobacco Use Types Packs/Day Years Used Date Smoking Tobacco: Never Assessed Sex and Gender Information Value Date Recorded Sex Assigned at Not on file Gender Identity Not on file Sexual Orientation Not on file Plan of Treatment Not on file
--- OUTSIDE RECORDS SUMMARY | 2024-07-22 20:19 | XMS_ITS | Clinical Summary ---
Author Organization [facility] [employer] Address [address] [place] [address] Care Team Providers Care Repair Technician Name Role Phone Unavailable Primary Care Provider Unavailabl e Source Comments [facility] [employer],non-owned Affiliates and Associated Physician Practices is amultiple site organization consisting of ambulatory clinics and hospital sitesin [place], [place], [place] and [place]. This disclosure is being madepursuant to the Care Everywhere program and may not contain all information available regarding this patient. Last updated 18.[facility] [employer] Social History Tobacco Use Types Packs/Day Years [...] 03/21/1967 DTAP/TDAP/TD VACCINES (1 - Tdap) 1968 PNEUMOCOCCAL VACCINE 50+ (1 of 1 - PCV) 1999 ZOSTER VACCINE (1 of 2) 1999 COVID-19 VACCINE ( - 2023-2 5 season) [...] patient's age to complete this topic MENINGOCOCCAL (Group B) VACCINE SHARED DECISION-MAKING Aged Out No longer eligible based on patient's age to complete this topic MENINGOCOCCAL GROUPS A/C/Y/W VACCINE Aged Out No longer eligible b ased on patient's age to complete this topic
--- OUTSIDE RECORDS SUMMARY | 2024-07-22 20:20 | XMS_ITS | Clinical Summary ---
Author Organization [facility] Address [address] [place] [address] Care Team Providers Care Splitter Tender Name Role Phone Elpidio Serrato MD Primary Care Provider [phone] Allergies Active Allergy Reactions Criticality Noted Date Comments Pseudoephedrine Palpitations Low Valacyclovir Other (See comments) Low 08/12/2018 put me in renal failure Medications blood glucose diagnostic (glucose blood) strip Testing once daily 100 each 2 019 Active aspirin 81 mg enteric coated tabletIndications:p [...] 4X daily 300 each 3 023 Active brimonidine-timoloL (Combigan) 0.2-0.5 % ophthalmic solutionIndications :Primary open angle glaucoma (POAG) of both eyes, moderate stage Administer 1 drop into the left eye 2 (two) times a day 15 mL 3 023 Active Additional Information Patient taking differently:1 drop left eye 2 times daily,Indications: open angle glaucoma, Informant: Self, Reported on 07/20/2024 atorvastatin (LIPITOR) 40 mg tablet Take 1 tablet (40 mg total) by mouth daily 90 tablet 3 024 2024 Active latanoprost (XALATAN) 0.005 % ophthalmic solutionIndications :Primary open angle glaucoma (POAG) of both eyes, moderate stage INSTILL 1 DROP INTO BOTH EYES NIGHTLY 7.5 mL 3 Active Additional Information Patient taking differently: 1 drop each eye Nightly, Indications: open angle glaucoma, Informant: Self, Reported on 07/20/2024 calcium carbonate (TUMS) 500 mg (200 mg elemental calcium) chewable tablet Take 1 tablet/chew tab (500 mg total) by mouth daily 90 tablet/danna w tab 3 024 2024 Active Additional Information Patient taking differently:500 mg oralEvery morning, Indications: Hypocalcemia Prevention, Informant: Self, Reported on 07/20/2024 furosemide (LASIX) 20 mg tabletIndications:w ater retention Take 0.5 tablets (10 mg total) by mouth every morning Active empagliflozin (Jardiance) 10 mg tabletIndications:T ype 2 diabetes mellitus (HCC) Take 1 tablet (10 mg total) by mouth daily 90 tablet 3 Active insulin glargine (LANTUS) 100 unit/mL (3 mL) pen for injection Inject 20 Units under the skin daily before breakfast Active Additional Information Patient taking differently: 17 UnitssubcutaneousNightly, Reported on 07/20/2024 pen needle, diabetic (Pen Needle) 32 gauge [...] Active pen needle, diabetic 32 gauge x 32 needle Use as directed 3 times a [...] daily 90 tablet 3 024 2024 Active oxyCODONE (ROXICODONE) 5 mg immediate release tabletIndications:P ain Take 1 tablet (5 mg total) by mouth every 4 (four) hours as needed for pain 2024 Discontinued Active Problems Problem Noted Date Diagnosed Date Anemia 2024 AF (paroxysmal atrial fibrillation) 01/25/2024 Assessment & Plan (01/27/2024 1:07 PM CDT): [...] cut at dc Coronary artery disease involving [place] heart 0 12/12/2023 Encounter for preprocedural cardiovascular exami [facility] 12/12/2023 ROSE (dyspnea on exertion) 11/19/2023 Stable angina 11/16/2023 Hyperphosphatemia 11/15/2023 Overview (11/15/2023): Last phos 4.5 Assessment & Plan (11/15/2023 4:00 PM CDT): Indicated for phosphate binders - Tums Abnormal stress echocardiogram 11/15/2023 Congestive heart failure 11/12/2023 Overview (11/15/2023): HFmrEF, last EF per [...] D2. Assessment & Plan (06/13/2020 1:43 PM BRANCH BANKER): Check 25OHD, especially if considering therapy for osteoporosis. Assessment & Plan (02/08/2020 3:28 PM CDT): Consider bone DXA with next visit in person, if possible. Assessment & Plan (08/24/2019 10:11 AM CDT): Continue vitamin D supplementation, may be important if you encounter COVID-19. Stay home but get some sun when it comes out. Assessment & Plan (04/01/2019 11:31 AM BRANCH BANKER): Levels normal 06/2018. Continue weekly ergocalciferol Clavicle enlargement 06/16/2018 Overview (06/16/2018): Will image to determine etiology. Assessment & Plan (06/16/2018 9:20 PM BRANCH BANKER): X-ray shows osteoarthritis with osteophytes. Odd, but does not need follow-up. Primary open angle glaucoma (POAG) of both eyes, moderate stage 06/11/2018 Assessment & Plan (07/15/2023 8:54 AM BRANCH BANKER): Doing well without concerns IOP at goal [...] concerns. Assessment & Plan (06/22/2022 7:41 AM BRANCH BANKER): POW1 EXTRACTION CATARACT - PHACOEMULSIFICATION AND LENS [...] OS Assessment & Plan (06/15/2022 8:25 AM BRANCH BANKER): POD1 EXTRACTION CATARACT - PHACOEMULSIFICATION AND LENS [...] concerns. Assessment & Plan (06/04/2022 2:51 PM BRANCH BANKER): Progression of field - plan for goniotomy at time of surgery Continue drops at this time Assessment & Plan (05/19/2021 4:27 PM BRANCH BANKER): POAG OU Mild HVF with progression of [...] OU Assessment & Plan (04/25/2020 8:08 AM BRANCH BANKER): POAG, former Dr. Thomas patient Mild OU [...] weeks. Assessment & Plan (07/03/2019 9:12 AM BRANCH BANKER): Patient returns S/P SLT OD -05/28/2019 -IOP Today by Ta 24/04 by tonopen. -A1C was around 7% at last visit on March 31. RTC 5 months for intraocular pressure (IOP) by applanation and HANS Drops: Combigan BID OU Latanoprost QHS OD Assessment & Plan (04/23/2019 10:48 AM BRANCH BANKER): Patient returns for 6 months follow-up with [...] 06/11/2018 Assessment & Plan (07/15/2023 8:54 AM BRANCH BANKER): Lenses doing well Assessment & Plan (06/22/2022 7:41 AM BRANCH BANKER): The patient understands the risks, benefits, alternatives [...] eye. Assessment & Plan (06/04/2022 2:52 PM BRANCH BANKER): NS OU The patient understands the risks, [...] eye. Assessment & Plan (05/19/2021 4:27 PM BRANCH BANKER): Now becoming VS Plan for CEIOL\goniotomy in [...] Master Assessment & Plan (04/16/2020 8:17 AM BRANCH BANKER): Nearing visual significance May need CEIOL/MIGS soon, but monitor for now Assessment & Plan (01/25/2020 8:46 AM CDT): Nearing visual significance May need CEIOL/MIGS soon, but monitor for now Assessment & Plan (12/05/2019 7:42 PM CDT): Pt ed. Defer cataract extraction (CE) until signs/sx indicate. Assessment & Plan (07/03/2019 9:13 AM BRANCH BANKER): NVS. Continue to Monitor. I am scribing in the presence of Dr. Thomas on 07/03/2019, Sandy Aguirre, OSC. I have examined the patient and agree with the resident/fellow's findings and plan as documented. Niranjan Thomas MD Assessment & Plan (04/23/2019 10:45 AM BRANCH BANKER): Michelle Soni OSC scribing for and in the presence of [...] calories. Assessment & Plan (06/13/2020 1:43 PM BRANCH BANKER): Glucose control could not be fully assessed [...] doses. Assessment & Plan (04/01/2019 11:28 AM BRANCH BANKER): Diabetes is worsening. Increase Lantus to 50 [...] months. Assessment & Plan (06/16/2018 9:16 PM BRANCH BANKER): Diabetes is improving with treatment. Continue current [...] recheck. Assessment & Plan (06/13/2020 1:39 PM BRANCH BANKER): Has been well controlled on low dose levothyroxine, will check TSH. Assessment & Plan (02/08/2020 3:27 PM CDT): TSH is perfect, no changes to levothyroxine dose. Assessment & Plan (04/01/2019 11:27 AM BRANCH BANKER): Continue current replacement, 88 mcg. Will check TSH today Assessment & Plan (06/16/2018 9:17 PM BRANCH BANKER): Thyroid functions are normal on current replacement, 88 mcg. No changes. Actinic keratosis 07/17/2012 Osteoarthritis of knee 12/16/2007 Assessment & Plan (06/16/2018 9:19 PM BRANCH BANKER): Follow-up with medicaid collection specialist. Hyperlipidemia 07/21/2006 Assessment & Plan (11/15/2023 [...] months. Assessment & Plan (06/13/2020 1:44 PM BRANCH BANKER): Last LDL was 90, but diabetes therapies have changed. Will recheck. Assessment & Plan (02/08/2020 3:26 PM CDT): LDL is at target, continue simvastatin. Assessment & Plan (04/01/2019 11:29 AM BRANCH BANKER): Lipid abnormalities are improving with treatment. LDL is 47 in 06/2018. Continue simvastatin 40 mg daily Lipids will be reassessed in 6 months. Assessment & Plan (06/16/2018 9:17 PM BRANCH BANKER): Lipid abnormalities are improving with treatment. LDL is 97 mg/dl. The patient was referred to the rope maker. and Pharmacotherapy as ordered. Lipids will be reassessed in 6 months. Obesity 07/21/2006 Assessment & Plan (01/25/2024 12:48 PM CDT): - BMI 40.32 on admission - provide bariatric equipment Assessment & Plan (04/01/2019 11:30 AM BRANCH BANKER): Obesity is unchanged. She is less active [...] Pharmacotherapy as ordered. Restructure the plan after fci in November. Hypertension 02/19/2006 Assessment & Plan [...] appointment. Assessment & Plan (06/16/2018 9:18 PM BRANCH BANKER): Hypertension is worsening, BP has increased to [...] Encounters Date Type Department Care Team Description 07/21/2024 Results Follow-Up [facility] Endocrinology Metabolism and Lipid [address] [facility] Medicine 13th [place] [address] [place] [address] Merna Bell MD 07/20/2024 3:50 PM CDT Lab [facility] ([facility] [address] [place] [phone] Mixed hyperlipidemia; Hypothyroidism, unspecified type; Chronic congestive heart failure, unspecified heart failure type (HCC); Chronic kidney disease (CKD) stage G3b/A1, moderately decreased glomerular filtration rate (GFR) between 30-44 mL/min/1.73 square meter and albuminuria creatinine ratio less than 30 mg/g (HCC); Other iron deficiency anemia 07/20/2024 11:40 AM CDT Office Visit [facility] Endocrinology Metabolism and Lipid [address] [place] [address] 13th [place] [address] [place] [address] Merna Bell MD Type 2 diabetes mellitus with stage 3a chronic kidney disease, with long-term current use of insulin (HCC) (Primary Dx); Age-related osteoporosis without current pathological fracture; Mixed hyperlipidemia; Chronic kidney disease (CKD) stage G3b/A1, moderately decreased glomerular filtration rate (GFR) between 30-44 mL/min/1.73 square meter and albuminuria creatinine ratio less than 30 mg/g ([facility]); Other iron deficiency anemia; Chronic congestive heart failure, unspecified heart failure type ([facility]); Hypothyroidism, unspecified type 07/13/2024 Orders Only [address] Advanced Medicine 8th [place] [address] [place] [phone] Fabi Collier NP 07/13/[address] 8th [place] [address] [place] [phone] Gris Barillas MD 05/29/2024 Orders Only [address] [place] [address] [place] [phone] Gris Barillas MD CAD, multiple vessel (Primary Dx); Hx of CABG from Last 3 Months Immunizations Immunization Administration Dates Next Due Influenza, Trivalent, High D ose, Split, Preservative Free, Intramuscular 03/06/2019 Influenza, Unspecified 02/16/2020,03/06/2019 Pneumococcal Conjugate PCV 13 08/12/2018 Pneumococcal Polysaccharide PPV23 04/29/2017 ZOSTER LIVE 04/29/2017 Surgical History Surgery Date Site/Laterality Comments [place] DELIVERY ONLY Section - in 1972 and 1975 (Added by TW Conv) [place] APPENDECTOMY unkown dates per pt [place] TENDON SHEATH INCISION Hand Incision Tendon Sheath Of A Finger - right hand, III finger, /10 (Added by TW Conv) CATARACT EXTRACTION 06/14/2022 [...] Diabetic retinopathy (HCC) Nonproliferative diabetic re tinopathy ([facility]) 11/03/2009 Coronary artery disease Hypertension CHF (congestive heart failure) ([facility]) Thyroid disease Coronary artery disease due to calcified coronary lesion 01/20/2024 Vitamin D deficiency 04/01/2019 Type 2 diabetes mellitus wit h hyperlipidemia ([facility]) 12/07/2016 Last A1C 5.9%, without compl ication Trigger finger of left thumb 12/09/2017 Pseudophakia of both eyes 06/11/2018 Primary open angle glaucoma (POAG) of both eyes, moderate stage 06/11/2018 Osteoarthritis of knee 12/16/2007 Knee pain 01/04/2015 Hypothyroidism 11/13/2014 Clavicle enlargement 06/16/2018 Will image to determine etiology. Age-related osteoporosis wit hout current pathological fracture 04/29/2023 Actinic keratosis 07/17/2012 Diabetic neuropathy (HCC) 01/21/2024 Leucocytosis 01/22/2024 Family History Medical History [...] on file Legal Sex Female 3:59 AM BRANCH BANKER Gender Identity Female 05/13/2021 4:21 PM BRANCH BANKER Sexual Orientation Not on file Obstetrics History Last Filed Vital Signs Vital Sign Reading Time Taken Comments Blood Pressure 111/69 07/20/2024 11:07 AM CDT Pulse 72 07/20/2024 11:07 AM CDT Temperature 36.9 C (98.5 F) 07/20/2024 11:07 AM CDT Respiratory Rate 18 01/28/2024 10:39 AM CDT Oxygen Saturation 100% 02/26/2024 12:10 PM CDT Inhaled Oxygen Concentration - - Weight 83 kg (183 lb) 07/20/2024 11:07 AM CDT Height 149.9 cm (4' 11 ) 07/20/2024 11:07 AM CDT Body Mass Index 36.96 07/20/2024 11:07 AM CDT Plan of Treatment Health Maintenance Due Date Last Done Comments Colon Cancer Screening-Colonoscopy 1950 Depression Screening 1950 Hepatitis C Screening 1950 Foot Exam 1950 DTaP/Tdap/Td Vaccine (1 - Tdap) 1960 Hepatitis B Screening 1967 Well Visit 65+ 2014 Zoster Vaccine (2 of 3) 06/24/2017 04/29/2017 Dilated Eye Exam 07/14/2024 07/15/2023, , 04/23/2019, Additional history exists Albumin Creatinine Ratio, Urine 10/28/2024 10/29/2023, 04/29/2023, 07/13/2020, Additional history exists Osteoporosis Screening-Bone Density Scan 12/03/2024 12/03/2022, 12/03/2022, 07/13/2020, Additional history exists Hemoglobin A1C 01/20/2025 07/20/2024, 02/11, 10/29/2023, Additional history exists Fall Risk Assessment 01/27/2025 01/28/2024 Lipid Panel 07/20/2025 07/20/2024, 02/11, 10/29/2023, Additional history exists eGFR 07/20/2025 07/20/2024, 02/11, 02/05/2024, Additional history exists Pneumococcal vaccine 65+ Completed 08/12/2018, 04/12 Influenza Vaccine Completed 03/05/2024, , 03/06/2019, Additional history exists Medical Devices Implanted Type Area Drum Stock Clerk Device Identifier Shelf Expiration Date Model / Serial / Lot [employer] Lens Iol Posterior Biconvex Optic Single Piece Envista 6.0x12.5 +18.0d Hydrophobic Acrylic [id number] - [id number] - [id number] Implanted:Qty: 1 on 06/14/2022 by Makayla Ramos MD at [facility] Lens Right: Lens [employer] [id number] 10/10/2024 [id number] / [id number] / [employer] Lens Iol Posterior Biconvex Optic Single Piece Envista 6.0x12.5 +18.0d Hydrophobic Acrylic [id number] - [id number] - [id number] Implanted:Qty: 1 on 08/16/2022 by Makayla Ramos MD at [facility] Lens Left: Eye [employer] [id number] 05/12/2025 [id number] / [id number] / [id number] [employer] Sternalock Hernan 2.4mm 16mm Self Drill Lock Sternum Cancellous 73-2416 - [id number] Implanted:Qty: 4 on 01/20/2024 by Jeff Alaniz MD at [facility] N/A: Sternum [employer] 73-2416 / / Trial [id number] Achv Atriclip Tony Exclusion System [id number] - [id number] Implanted:Qty: 1 on 01/20/2024 by Stan Treviño MD at [facility] N/A: Heart Atricure [id number] / / Description:clinical trial i tem [id number] ACHV ATRICLIP TONY EXCLUSION SYSTEM [id number] [employer] Suture Woodrow Cor Knot Pre Loaded Fastener Device Micro Titanium 0 84564 - S0 - [id number] Implanted:Qty: 1 on 01/20/2024 by Stan Treviño MD at [facility] N/A: Heart [employer] [id number] 06/12/2026 [id number] / 0 / [id number] [employer] Suture Woodrow Cor Knot Pre Loaded Fastener Device Micro Titanium 0 03280 - S0 - [id number] Implanted:Qty: 1 on 01/20/2024 by Stan Treviño MD at [facility] N/A: Heart [employer] [id number] 09/09/2026 89273 / 0 / [id number] [employer] Suture Woodrow Cor Knot Pre Loaded Fastener Device Micro Titanium 0 30459 - S0 - [id number] Implanted:Qty: 1 on 01/20/2024 by Stan Treviño MD at [facility] N/A: Heart [employer] [id number] 07/10/2026 05047 / 0 / [id number] [employer] Suture Woodrow Cor Knot Pre Loaded Fastener Device Micro Titanium 0 14383 - S0 - [id number] Implanted:Qty: 1 on 01/20/2024 by Stan Treviño MD at [facility] N/A: Heart [employer] [id number] 10/10/2026 48222 / 0 / [id number] Atricure Device Left Atrial Appendage Malleable Shaft 180 Degree Rotation White Atriclip Flex V 40mm Flexv40 Achv40 - [id number] Implanted:Qty: 1 on 01/20/2024 by Stan Treviño MD at [facility] N/A: Heart Atricure 07/11/2026 [facility] / / [id number] Description:LEFT ATRIAL APPE NDAGE S/B clinical trial item [id number] ACHV ATRICLIP TONY EXCLUSION SYSTEM [id number] [employer] Sternalock 360 Sternal Closure 74-0004 - [id number] Implanted:Qty: 1 on 01/20/2024 by Jeff Alaniz MD at [facility] N/A: Sternum [employer] [id number] 11/04/2028 74-0004 / / [id number] [employer] Sternalock Hernan 2.4mm 14mm Self Drill Lock Sternum Cancellous 73-2414 - [id number] Implanted:Qty: 12 on 01/20/2024 by Jeff Alaniz MD at [facility] N/A: Sternum [employer] 73-2414 / / Procedures Procedure Name Priority Date/Time Associated Diagnosis Comments EGFR Routine 07/20/2024 1:31 PM CDT Chronic kidney disease (CKD) stage G3b/A1, moderately decreased glomerular filtration rate (GFR) between 30-44 mL/min/1.73 square meter and albuminuria creatinine ratio less than 30 mg/g (HCC) DIFFERENTIAL AUTO Routine 07/20/2024 1:3 1 PM CDT Other iron deficiency anemia CBC WITH AUTO DIFFERENTIAL Routine 07/20/2024 1:31 PM CDT Other iron deficiency anemia IRON PROFILE W/ IBC Routine 07/20/2024 1 :31 PM CDT Other iron deficiency anemia RENAL FUNCTION PANEL Routine 07/20/2024 1:31 PM CDT Chronic kidney disease (CKD) stage G3b/A1, moderately decreased glomerular filtration rate (GFR) between 30-44 mL/min/1.73 square meter and albuminuria creatinine ratio less than 30 mg/g (HCC) PRO B-TYPE NATRIURETIC PEPTIDE Routine 07/20/2024 1:31 PM CDT Chronic congestive heart failure, unspecified heart failure type (HCC) THYROID FUNCTION CASCADE Routine 07/20/2024 1:31 PM CDT Hypothyroidism, unspecified type LIPID PANEL Routine 07/20/2024 1:31 PM CDT Mixed hyperlipidemia POCT HEMOGLOBIN A1C Routine 07/20/2024 11:14 AM CDT Type 2 diabetes mellitus with stage 3a chronic kidney disease, with long-term current use of insulin (HCC) POCT GLUCOSE 59588 Routine 07/20/2024 11:13 AM CDT Type 2 diabetes mellitus with stage 3a chronic kidney disease, with long-term current use of insulin (HCC) CBC WITH AUTO DIFFERENTIAL Routine 04/27/2024 9:24 AM BRANCH BANKER Anemia, unspecified type ALBUMIN CREATININE RATIO, URINE Routine 10/29/2023 9:30 AM CDT Type 2 diabetes mellitus with hyperlipidemia (HCC) DEXA AXIAL SKELETON BONE DENSITY 1 OR MORE SITES Schedule Routine, Read Routine (OP Routine) 12/03/2022 10:04 AM CDT Osteoporosis without current pathological fracture, unspecified osteoporosis type from Last 3 Months or Most Recently Relevant to Health Maintenance Results * (ABNORMAL) eGFR (07/20/2024 1:31 PM CDT) eGFR 42(L) >=60 mL/min/1. 73 m2 Comment: Interpretive Data Reference Interval Normal >/= 90 mL/min/1.73m2 Mildly decreased* 60 - 89 mL/min/1.73m2 Mildly to moderately decreased 45 - 59 mL/min/1.73m2 Moderately to severely decreased 30 - 44 mL/min/1.73m2 Severely decreased 15 - 29 mL/min/1.73m2 Kidney Failure < 15 mL/min/1.73m2 *Relative to young adult level Estimated glomerular [...] interpretive data was last reviewed 2021. Blood 07/20/2024 1:31 PM CDT 07/20/2024 1:58 PM CDT us Merna Bell MD LAB BLOOD ORDERABLES Final Re sult [facility] Department [place] [address] * Differential, auto (07/20/2024 1:31 PM CDT) Neutrophil abs 4.5 1.5 - 6.5 K/cumm Imm gran abs 0.0 0.0 - 0.1 K/cumm [facility] Lymphocyte abs 2.0 0.8 - 3.3 K/cumm [facility] Monocyte abs 0.5 0.2 - 0.8 K/cumm [facility] Eosinophil abs 0.1 0.0 - 0.5 K/cumm [facility] Basophil abs 0.0 0.0 - 0.1 K/cumm [facility] Neutrophil pct 63.2 % [facility] Comment: Interpretive [...] was last revised on 2017. Lymphocyte pct 27.9 % [facility] Comment: Interpretive Data Percent cell count reference ranges are not reported, since discordance with absolute values may lead to misinterpretation of CBC data. Current Interpretive Data was last revised on 2017. Monocyte pct 7.3 % [facility] Comment: Interpretive Data Percent cell count reference ranges are not reported, since discordance with absolute values may lead to misinterpretation of CBC data. Current Interpretive Data was last revised on 2017. Eosinophil pct 0.7 % [facility] Comment: Interpretive Data Percent cell count reference ranges are not reported, since discordance with absolute values may lead to misinterpretation of CBC data. Current Interpretive Data was last revised on 2017. Basophil pct 0.6 % [facility] Comment: Interpretive Data Percent cell count reference ranges are not reported, since discordance with absolute values may lead to misinterpretation of CBC data. Current Interpretive Data was last revised on 2017. Blood 07/20/2024 1:31 PM CDT 07/20/2024 1:58 PM CDT us Merna Bell MD LAB BLOOD ORDERABLES Final Re sult [facility] Department [place] [address] * (ABNORMAL) Pro B-type natriuretic peptide (07/20/2024 1:31 PM CDT) NT-proBNP 738(H) <=450 pg/mL Comment: Interpretive Comments: A. Dyspnea in Acute Care Setting All Ages: < 300 pg/ml, acute heart failure unlikely. < 50 yrs: 300 - 450 pg/ml, further investigation warranted. > 450 pg/ml, acute heart failure likely. 50 - 74 yrs: 300 - 900 pg/ml, further investigation warranted. > 900 pg/ml, acute heart failure likely . > or = 75 yrs: 450 - 1800 pg/ml, further investigation warranted. > 1800 pg/ml, acute heart failure likely. B. Non-acute Setting < 75 yrs < 125 pg/ml, rules out heart failure. > or = 125 pg/ml, further investigation warranted. > or = 75 yrs < 450 pg/ml, rules out heart failure. > or = 450 pg/ml, further investigation [...] Heart J. 2006:27:330-337. 2. Malick RW, Karina AM. J. AM Remi Cardiol: Cardiovasc Imag. 2009;2: 216- 225. Interpretive Data Last Revised Date: 2017. Blood 07/20/2024 1:31 PM CDT 07/20/2024 1:58 PM CDT us Merna Bell MD LAB BLOOD ORDERABLES Final Re sult [facility] Department [place] [address] * Thyroid Function [place] (07/20/2024 1:31 PM CDT) [facility] TSH 1.96 0.30 - 4.20 mcIUnit/mL Blood 07/20/2024 1:31 PM CDT 07/20/2024 1:58 PM CDT Merna Bell MD LAB BLOOD ORDERABLES Final Re sult Performing Organization Address City/[facility] Co de Phone Number [facility] Department [place] [address] * (ABNORMAL) Iron profile w/ IBC (07/20/2024 1:31 PM CDT) [facility] Iron 60 35 - 145 mcg/dL TIBC 221(L) 250 - 400 mcg/dL [facility] Transferrin saturation 27 20 - 50 % [facility] Blood 07/20/2024 1:31 PM CDT 07/20/2024 1:58 PM CDT Merna Bell MD LAB BLOOD ORDERABLES Final Re sult Performing Organization Address [facility] de Phone Number [facility] [place] [address] * CBC with auto differential (07/20/2024 1:31 PM CDT) [facility] WBC 7.2 3.8 - 9.9 K/cumm Hgb 13.7 11.9 - 15.5 g/dL [facility] Hct 40.1 35.6 - 45.5 % [facility] Plt 275 150 - 400 K/cumm [facility] MPV 10.2 9.1 - 12.3 fL [facility] RBC 4.63 3.90 - 5.20 M/cumm [facility] MCV 86.6 81.3 - 96.4 fL [facility] MCH 29.6 27.1 - 33.3 pg [facility] MCHC 34.2 32.3 - 35.7 g/dL [facility] RDW CV 14.2 11.1 - 14.9 % [facility] RDW SD 45.6 35.7 - 48.1 fL [facility] NRBC abs 0.00 0.00 - 0.01 K/cumm [facility] Blood 07/20/2024 1:31 PM CDT 07/20/2024 1:58 PM CDT Merna Bell MD LAB BLOOD ORDERABLES Final Re sult [facility] Department [place] [address] * (ABNORMAL) Renal function panel (07/20/2024 1:31 PM CDT) Sodium 142 135 - 145 mmol/L Potassium, pl 3.8 3.3 - 4.9 mmol/L [facility] Chloride 105 97 - 110 mmol/L [facility] CO2 26 22 - 32 mmol/L [facility] Anion gap 11 2 - 15 mmol/L [facility] BUN 28(H) 6 - 25 mg/dL [facility] Creatinine 1.31(H) 0.60 - 1.10 mg/dL [facility] Glucose 254(H) 70 - 199 mg/dL [facility] Comment: Interpretive Data Fasting glucose >/= 126 mg/dl is diagnostic for diabetes. Fasting is defined as no caloric intake [...] interpretive data was last revised 2022. Calcium 9.7 8.5 - 10.3 mg/dL [facility] Phosphorus, pl 3.1 2.3 - 4.5 mg/dL [facility] Albumin 4.2 3.5 - 5.0 g/dL [facility] Blood 07/20/2024 1:31 PM CDT 07/20/2024 1:58 PM CDT us Merna Bell MD LAB BLOOD ORDERABLES Final Re sult [facility] Department [place] [address] * (ABNORMAL) Lipid panel (07/20/2024 1:31 PM CDT) Cholesterol 196 30 - 199 mg/dL Comment: Interpretive Data Ages < or = 19 years Acceptable: <170 mg/dL Borderline high: 170-199 mg/dL High: >or= 200 mg/dL Ages > or = 20 years Desirable: <200 mg/dL Borderline high: 200-239 mg/dL High: >or= 240 mg/dL Literature References: 1. Expert Panel on Integrated Guidelines for Cardiovascular Health and Risk Reduction in Children and Adolescents. Pediatrics 2011;128:S213 2. NCEP Expert Panel. Circulation 2004;110:227 Current Interpretive Data was last revised on 2017. Triglycerides 186(H) <=149 mg/dL [facility] Comment: Interpretive Data Ages < or = 9 years Acceptable: <75 mg/dL Borderline high: 75-99 mg/dL High: >or= 100 mg/dL Ages 10 to 20 years Acceptable: <90 mg/dL Borderline high: 90-129 mg/dL High: >or= 130 mg/dL Ages > or = 20 years Desirable: <150 mg/dL Borderline high: 150-199 mg/dL High: 200-499 mg/dL Very high: >or= 499 mg/dL Literature References: 1. Expert Panel on Integrated Guidelines for Cardiovascular Health and Risk Reduction in Children and Adolescents. Pediatrics 2011;128:S213 2. NCEP Expert Panel. Circulation 2004;110:227 Current Interpretive Data was last revised on 2017. HDL 46 >=40 mg/dL [facility] Comment: Interpretive Data Ages < or = 19 years Acceptable: >45 mg/dL Borderline low: 40-45 mg/dL Low: <40 mg/dL Ages > or = 20 years Desirable: >or= 60 mg/dL Low: <40 mg/dL Literature References: 1. Expert Panel on Integrated Guidelines for Cardiovascular Health and Risk Reduction in Children and Adolescents. Pediatrics 2011;128:S213 2. NCEP Expert Panel. Circulation 2004;110:227 Current Interpretive Data was last revised on 2017. LDL, calculated 117 <=129 mg/dL [facility] Comment: Interpretive Data Ages < or = 19 years Acceptable: <110 mg/dL Borderline high: 110-129 mg/dL High: >or= 130 mg/dL Ages > or = 20 years Optimal: <100 mg/dL Near optimal: 100-129 mg/dL Borderline high: 130-159 mg/dL High: >160 mg/dL Calculated using the Harshal LDL-C estimating [...] was last revised on 2024. Non-HDL Cholesterol 150 mg/dL [facility] Comment: Interpretive Data Ages < or = 19 years Acceptable: <120 mg/dL Borderline high: 120-144 mg/dL High: >145 mg/dL Ages > or = 20 years When triglycerides are >200 mg/dL, Non-HDL cholesterol is a secondary target of therapy with treatment goals that are 30 mg/dL greater than the LDL cholesterol target. Literature References: 1. Expert Panel on Integrated Guidelines for Cardiovascular Health and Risk Reduction in Children and Adolescents. Pediatrics 2011;128:S213 2. NCEP Expert Panel. Circulation 2004;110:227 Current Interpretive Data was last revised on 2017. Chol/HDL ratio 4 [facility] Blood 07/20/2024 1:31 PM CDT 07/20/2024 1:58 PM CDT Merna Bell MD LAB BLOOD ORDERABLES Final Re sult [facility] Department [place] [address] * POCT hemoglobin A1c (07/20/2024 11:14 AM CDT) Pathologist [facility] Hemoglobin A1C, POC 6.6 4.0 - 5.6 % Blood 07/20/2024 11:1 4 AM CDT Merna Bell MD POINT OF CARE TEST ORDERABLES Final Result * POCT glucose (07/20/2024 11:13 AM CDT) Pathologist [facility] Glucose Blood, POC 344 mg/dL Blood 07/20/2024 11:1 3 AM CDT us Merna Bell MD POINT OF CARE TEST ORDERABLES Final Result * (ABNORMAL) CBC with auto differential (04/27/2024 9:24 AM BRANCH BANKER) Pathologist [facility] WBC 7.8 3.8 - 10.8 Thousand/u L [...] [facility] Blood 04/27/2024 9:24 AM BRANCH BANKER 04/27/2024 9:25 AM BRANCH BANKER Lia Mariano PRIMING MACHINE OPERATOR LAB BLOOD ORDERABLES Phyllis l Result Performing Organization Address City/[facility] Co de Phone Number [facility] [address] [place] [address] * Albumin Creatinine Ratio, Urine (10/29/2023 9:30 AM CDT) Microalb, Ur 7.9 0.0 - 22.9 mg/L [facility] Random Urine Creatinine 109.6 mg/dL [facility] Microalb/Creat Ratio 7.2 0.0 - 29.9 mg/g [facility] Urine 10/29/2023 9:30 AM CDT 10/29/2023 11:19 AM CDT Lia Mariano PRIMING MACHINE OPERATOR LAB URINE ORDERABLES Phyllis l Result [facility] CORE LAB [facility] * Dexa Axial Skeleton Bone Density 1 or 2 Site (12/03/2022 10:04 AM CDT) Anatomical Region Laterality Modality Body N/A Radiographic Luba ging Narrative 12/04/2022 1:59 PM CDT Patient Name: Isabelle Figueredo Date of : 1950 Date of scan: 12/03/2022 Bone mineral density was performed on a [employer] Discovery Densitometer. Based on machine cross-calibration and precision studies [...] the routine study because of forearm protocol. SUMMARY: Bone mineral density shows evidence of [...] scan were prepared by Eloisa Cabezas(Paloma)(M)(BD) CBDT who is accredited by the International Society of Clinical Densitometry. The overall patient assessment and scan interpretation were performed by Payton Murphy MD who is certified by the International Society of Clinical Densitometry. [id number] Merna Bell MD IMG DXA PROCEDURES Final Resu lt from Last 3 Months or Most Recently Relevant to Health Maintenance Insurance MEDICARE [facility] MEDICARE [facility] MEDICARE MEDICARE [facility] FEDERAL Advance Directives For more information, please contact: [phone] * Full Code (Latest Code Status on File) Date Activated Date Inactivated Comments 01/20/2024 5:39 PM 01/28/2024 5:37 PM * Full Code Date Activated Date Inactivated Comments 11/25/2023 10:11 AM 11/25/2023 6:07 PM * Full Code Date Activated Date Inactivated Comments 11/15/2023 4:07 PM 11/16/2023 7:24 PM Care Teams Splitter Tender Relationship Specialty Start Date End Date Elpidio Serrato MD PCP - General Internal Medicine 06/09/18
--- OUTSIDE RECORDS SUMMARY | 2024-07-22 20:20 | XMS_ITS | Referral Summary ---
Author Organization [facility] Address [address] [place] [address] Care Team Providers Care Title Inspector Name Role Phone Elpidio Serrato MD Primary Care Provider [phone] Encounters Date Type Department Care Team Description 07/21/2024 Results Follow-Up [facility] Endocrinology Metabolism and Lipid [address] [facility] 13th [place] [address] [place] [address] Merna Bell MD 07/20/2024 3:50 PM CDT Lab [facility] [address] [place] [phone] Mixed hyperlipidemia; Hypothyroidism, unspecified type; Chronic congestive heart failure, unspecified heart failure type (HCC); Chronic kidney disease (CKD) stage G3b/A1, moderately decreased glomerular filtration rate (GFR) between 30-44 mL/min/1.73 square meter and albuminuria creatinine ratio less than 30 mg/g (HCC); Other iron deficiency anemia 07/20/2024 11:40 AM CDT Office Visit [facility] Endocrinology Metabolism and Lipid [facility] [address]th [place] [address] [place] [address] Merna Bell MD Type 2 diabetes mellitus with stage 3a chronic kidney disease, with long-term current use of insulin (HCC) (Primary Dx); Age-related osteoporosis without current pathological fracture; Mixed hyperlipidemia; Chronic kidney disease (CKD) stage G3b/A1, moderately decreased glomerular filtration rate (GFR) between 30-44 mL/min/1.73 square meter and albuminuria creatinine ratio less than 30 mg/g (HCC); Other iron deficiency anemia; Chronic congestive heart failure, unspecified heart failure type ([facility]); Hypothyroidism, unspecified type 07/13/2024 Orders Only [facility] [address] [place] [address] [facility] 8th [place] [address] [place] [phone] Rater, JAMES Dunlap 07/13/[address] 8th [place] [address] [place] [phone] Gris Barillas MD 05/29/2024 Orders Only [address] 8th [place] [address] [place] [phone] Gris Barillas MD CAD, multiple vessel (Primary Dx); Hx of CABG from Last 3 Months Allergies Active Allergy [...] long-term current use of insulin, unspecified laterality ([facility]) Use 4X daily 300 each 3 023 [...] cut at dc Coronary artery disease involving [place] heart 0 12/12/2023 Encounter for preprocedural cardiovascular exami [place] [facility] 12/12/2023 ROSE (dyspnea on exertion) [...] D2. Assessment & Plan (06/13/2020 1:43 PM CASE LINER): Check 25OHD, especially if considering therapy for osteoporosis. Assessment & Plan (02/08/2020 3:28 PM CDT): Consider bone DXA with next visit in person, if possible. Assessment & Plan (08/24/2019 10:11 AM CDT): Continue vitamin D supplementation, may be important if you encounter COVID-19. Stay home but get some sun when it comes out. Assessment & Plan (04/01/2019 11:31 AM CASE LINER): Levels normal 06/2018. Continue weekly ergocalciferol Clavicle enlargement 06/16/2018 Overview (06/16/2018): Will image to determine etiology. Assessment & Plan (06/16/2018 9:20 PM CASE LINER): X-ray shows osteoarthritis with osteophytes. Odd, but does not need follow-up. Primary open angle glaucoma (POAG) of both eyes, moderate stage 06/11/2018 Assessment & Plan (07/15/2023 8:54 AM CASE LINER): Doing well without concerns IOP at goal [...] concerns. Assessment & Plan (06/22/2022 7:41 AM CASE LINER): POW1 EXTRACTION CATARACT - PHACOEMULSIFICATION AND LENS [...] OS Assessment & Plan (06/15/2022 8:25 AM CASE LINER): POD1 EXTRACTION CATARACT - PHACOEMULSIFICATION AND LENS [...] concerns. Assessment & Plan (06/04/2022 2:51 PM CASE LINER): Progression of field - plan for goniotomy at time of surgery Continue drops at this time Assessment & Plan (05/19/2021 4:27 PM CASE LINER): POAG OU Mild HVF with progression of [...] OU Assessment & Plan (04/25/2020 8:08 AM CASE LINER): POAG, former Dr. Thomas patient Mild OU [...] weeks. Assessment & Plan (07/03/2019 9:12 AM CASE LINER): Patient returns S/P SLT OD -05/28/2019 -IOP Today by Ta 24/04 by tonopen. -A1C was around 7% at last visit on March 31. RTC 5 months for intraocular pressure (IOP) by applanation and HANS Drops: Combigan BID OU Latanoprost QHS OD Assessment & Plan (04/23/2019 10:48 AM CASE LINER): Patient returns for 6 months follow-up with [...] 06/11/2018 Assessment & Plan (07/15/2023 8:54 AM CASE LINER): Lenses doing well Assessment & Plan (06/22/2022 7:41 AM CASE LINER): The patient understands the risks, benefits, alternatives [...] eye. Assessment & Plan (06/04/2022 2:52 PM CASE LINER): NS OU The patient understands the risks, [...] eye. Assessment & Plan (05/19/2021 4:27 PM CASE LINER): Now becoming VS Plan for CEIOL\goniotomy in [...] Master Assessment & Plan (04/16/2020 8:17 AM CASE LINER): Nearing visual significance May need CEIOL/MIGS soon, but monitor for now Assessment & Plan (01/25/2020 8:46 AM CDT): Nearing visual significance May need CEIOL/MIGS soon, but monitor for now Assessment & Plan (12/05/2019 7:42 PM CDT): Pt ed. Defer cataract extraction (CE) until signs/sx indicate. Assessment & Plan (07/03/2019 9:13 AM CASE LINER): NVS. Continue to Monitor. I am scribing in the presence of Dr. Thomas on 07/03/2019, HALLEY Ramos. I have examined the patient and agree with the resident/fellow's findings and plan as documented. Niranjan Thomas MD Assessment & Plan (04/23/2019 10:45 AM CASE LINER): HALLEY Joseph scribing for and in the [...] calories. Assessment & Plan (06/13/2020 1:43 PM CASE LINER): Glucose control could not be fully assessed [...] doses. Assessment & Plan (04/01/2019 11:28 AM CASE LINER): Diabetes is worsening. Increase Lantus to 50 [...] months. Assessment & Plan (06/16/2018 9:16 PM CASE LINER): Diabetes is improving with treatment. Continue current [...] recheck. Assessment & Plan (06/13/2020 1:39 PM CASE LINER): Has been well controlled on low dose levothyroxine, will check TSH. Assessment & Plan (02/08/2020 3:27 PM CDT): TSH is perfect, no changes to levothyroxine dose. Assessment & Plan (04/01/2019 11:27 AM CASE LINER): Continue current replacement, 88 mcg. Will check TSH today Assessment & Plan (06/16/2018 9:17 PM CASE LINER): Thyroid functions are normal on current replacement, 88 mcg. No changes. Actinic keratosis 07/17/2012 Osteoarthritis of knee 12/16/2007 Assessment & Plan (06/16/2018 9:19 PM CASE LINER): Follow-up with systems support specialist. Hyperlipidemia 07/21/2006 Assessment & Plan (11/15/2023 [...] months. Assessment & Plan (06/13/2020 1:44 PM CASE LINER): Last LDL was 90, but diabetes therapies have changed. Will recheck. Assessment & Plan (02/08/2020 3:26 PM CDT): LDL is at target, continue simvastatin. Assessment & Plan (04/01/2019 11:29 AM CASE LINER): Lipid abnormalities are improving with treatment. LDL is 47 in 06/2018. Continue simvastatin 40 mg daily Lipids will be reassessed in 6 months. Assessment & Plan (06/16/2018 9:17 PM CASE LINER): Lipid abnormalities are improving with treatment. LDL is 97 mg/dl. The patient was referred to the house mover helper. and Pharmacotherapy as ordered. Lipids will be reassessed in 6 months. Obesity 07/21/2006 Assessment & Plan (01/25/2024 12:48 PM CDT): - BMI 40.32 on admission - provide bariatric equipment Assessment & Plan (04/01/2019 11:30 AM CASE LINER): Obesity is unchanged. She is less active after long term. Discussed the patient's BMI. The BMI is [...] Pharmacotherapy as ordered. Restructure the plan after long term in November. Hypertension 02/19/2006 Assessment & Plan [...] appointment. Assessment & Plan (06/16/2018 9:18 PM CASE LINER): Hypertension is worsening, BP has increased to [...] 06/11/2018 Nonproliferative diabetic retinopathy 11/03/2009 12/05/2019 Immunizations Immunization Administration Dates Next Due Influenza, [...] on file Legal Sex Female 3:59 AM CASE LINER Gender Identity Female 05/13/2021 4:21 PM CASE LINER Sexual Orientation Not on file Last Filed [...] 07/20/2024 11:07 AM CDT Plan of Treatment Not on file Medical Devices Implanted Type Area Divisional Human Resources Director Device Identifier Shelf Expiration Date Model / Serial / Lot [employer] Lens Iol Posterior Biconvex Optic Single Piece Envista 6.0x12.5 +18.0d Hydrophobic Acrylic [id number] - [id number] - [id number] Implanted:Qty: 1 on 06/14/2022 by Makayla Ramos MD at [facility] Lens Right: Lens [employer] [id number] 10/10/2024 [id number] / [id number] / [employer] Lens Iol Posterior Biconvex Optic Single Piece Envista 6.0x12.5 +18.0d Hydrophobic Acrylic [id number] - [id number] - [id number] Implanted:Qty: 1 on 08/16/2022 by Makayla Ramos MD at [facility] Lens Left: Eye [employer] [id number] 05/12/2025 [id number] / [id number] / [id number] [employer] Sternalock Hernan 2.4mm 16mm Self Drill Lock Sternum Cancellous 73-2416 - [id number] Implanted:Qty: 4 on 01/20/2024 by Jeff Alaniz MD at [facility] N/A: Sternum [employer] 73-2416 / / Trial [id number] Achv Atriclip Tony Exclusion System [id number] - [id number] Implanted:Qty: 1 on 01/20/2024 by Stan Treviño MD at [facility] N/A: Heart Atricure [id number] / / Description:clinical trial i tem [id number] ACHV ATRICLIP TONY EXCLUSION SYSTEM [id number] [employer] Suture [place] Cor Knot Pre Loaded Fastener Device Micro Titanium 0 41562 - S0 - [id number] Implanted:Qty: 1 on 01/20/2024 by Stan Treviño MD at [facility] N/A: Heart [employer] [id number] 06/12/2026 [id number] / 0 / [id number] [employer] Suture [place] Cor Knot Pre Loaded Fastener Device Micro Titanium 0 93179 - S0 - [id number] Implanted:Qty: 1 on 01/20/2024 by Stan Treviño MD at [facility] N/A: Heart [employer] [id number] 09/09/2026 [id number] / 0 / [id number] [employer] Suture [place] Cor Knot Pre Loaded Fastener Device Micro Titanium 0 05550 - S0 - [id number] Implanted:Qty: 1 on 01/20/2024 by Stan Treviño MD at [facility] N/A: Heart [employer] [id number] 07/10/2026 27300 / 0 / [id number] [employer] Suture [place] Cor Knot Pre Loaded Fastener Device Micro Titanium 0 03287 - S0 - [id number] Implanted:Qty: 1 on 01/20/2024 by Stan Treviño MD at [facility] N/A: Heart [employer] [id number] 10/10/2026 07963 / 0 / [id number] Atricure Device Left Atrial Appendage Malleable Shaft 180 Degree Rotation White Atriclip Flex V 40mm Flexv40 Achv40 - [id number] Implanted:Qty: 1 on 01/20/2024 by Stan Treviño MD at [facility] N/A: Heart Atricure 07/11/2026 [id number] / / [id number] Description:LEFT ATRIAL APPE NDAGE S/B clinical trial item [id number] ACHV ATRICLIP TONY EXCLUSION SYSTEM [id number] [employer] Sternalock 360 Sternal Closure 74-0004 - [id number] Implanted:Qty: 1 on 01/20/2024 by Jeff Alaniz MD at [facility] N/A: Sternum [employer] [id number] 11/04/2028 74-0004 / / [id number] [employer] Sternalock Hernan 2.4mm 14mm Self Drill Lock Sternum Cancellous 73-2414 - [id number] Implanted:Qty: 12 on 01/20/2024 by Jeff Alaniz MD at [facility] N/A: Sternum [employer] 73-2414 / [...] current use of insulin (HCC) POCT GLUCOSE 90909 Routine 07/20/2024 11:13 AM CDT Type 2 diabetes mellitus with stage 3a chronic kidney disease, with long-term current use of insulin (HCC) CBC WITH AUTO DIFFERENTIAL Routine 04/27/2024 9:24 AM CASE LINER Anemia, unspecified type ALBUMIN CREATININE RATIO, URINE [...] LAB BLOOD ORDERABLES Final Re sult [facility] [address] [facility] [place] [address] * Differential, auto (07/20/2024 1:31 PM CDT) Neutrophil abs 4.5 1.5 - 6.5 K/cumm Imm gran abs 0.0 0.0 - 0.1 K/cumm [facility] Lymphocyte abs 2.0 0.8 - 3.3 K/cumm [facility] Monocyte abs 0.5 0.2 - 0.8 K/cumm [facility] Eosinophil abs 0.1 0.0 - 0.5 K/cumm [facility] Basophil abs 0.0 0.0 - 0.1 K/cumm [facility] Neutrophil pct 63.2 % [facility] Comment: Interpretive Data Percent cell count reference ranges are not reported, since discordance with absolute values may lead to misinterpretation of CBC data. Current Interpretive Data was last revised on 2017. Imm gran pct 0.3 % [facility] Comment: Interpretive Data Percent cell count reference ranges are not reported, since discordance with absolute values may lead to misinterpretation of CBC data. Current Interpretive Data was last revised on 2017. Lymphocyte pct 27.9 % [facility] Comment: Interpretive Data Percent cell count reference ranges are not reported, since discordance with absolute values may lead to misinterpretation of CBC data. Current Interpretive Data was last revised on 2017. Monocyte pct 7.3 % [facility] Comment: Interpretive Data Percent cell count reference ranges are not reported, since discordance with absolute values may lead to misinterpretation of CBC data. Current Interpretive Data was last revised on 2017. Eosinophil pct 0.7 % [facility] Comment: Interpretive Data Percent cell count reference ranges are not reported, since discordance with absolute values may lead to misinterpretation of CBC data. Current Interpretive Data was last revised on 2017. Basophil pct 0.6 % [facility] Comment: Interpretive Data Percent cell count reference ranges are not reported, since discordance with absolute values may lead to misinterpretation of CBC data. Current Interpretive Data was last revised on 2017. Blood 07/20/2024 1:31 PM CDT 07/20/2024 1:58 PM CDT us Merna Bell MD LAB BLOOD ORDERABLES Final Re sult [facility] [place] [address] * (ABNORMAL) Pro B-type natriuretic peptide (07/20/2024 [...] sult Performing Organization Address [facility] Co de Phone Number [facility] The [address] [place] [address] * Thyroid Function Payette (07/20/2024 1:31 PM CDT) TSH 1.96 0.30 - 4.20 mcIUnit/mL Blood 07/20/2024 1:31 PM CDT 07/20/2024 1:58 PM CDT Merna Bell MD LAB BLOOD ORDERABLES Final Re sult Performing Organization Address [facility] de Phone Number [facility] [place] [address] * (ABNORMAL) Iron profile w/ IBC (07/20/2024 1:31 PM CDT) Iron 60 35 - 145 mcg/dL TIBC 221(L) 250 - 400 mcg/dL [facility] Transferrin saturation 27 20 - 50 % [facility] Blood 07/20/2024 1:31 PM CDT 07/20/2024 1:58 PM CDT Merna Bell MD LAB BLOOD ORDERABLES Final Re sult Performing Organization Address [facility] Co de Phone Number [facility] [place] [address] [place] [address] * CBC with auto differential (07/20/2024 1:31 PM CDT) [facility] WBC 7.2 3.8 - 9.9 K/cumm Hgb 13.7 11.9 - 15.5 g/dL [facility] Hct 40.1 35.6 - 45.5 % [facility] Plt 275 150 - 400 K/cumm [facility] MPV 10.2 9.1 - 12.3 fL [facility] RBC 4.63 3.90 - 5.20 M/cumm [facility] MCV 86.6 81.3 - 96.4 fL [facility] MCH 29.6 27.1 - 33.3 pg [facility] MCHC 34.2 32.3 - 35.7 g/dL [facility] RDW CV 14.2 11.1 - 14.9 % [facility] RDW SD 45.6 35.7 - 48.1 fL [facility] NRBC abs 0.00 0.00 - 0.01 K/cumm [facility] Blood 07/20/2024 1:31 PM CDT 07/20/2024 1:58 PM CDT us Merna Bell MD LAB BLOOD ORDERABLES Final Re sult [facility] [address] [facility] [place] [address] * (ABNORMAL) Renal function panel (07/20/2024 1:31 PM CDT) [facility] Sodium 142 135 - 145 mmol/L Potassium, pl 3.8 3.3 - 4.9 mmol/L [facility] Chloride 105 97 - 110 mmol/L [facility] CO2 26 22 - 32 mmol/L [facility] Anion gap 11 2 - 15 mmol/L [facility] BUN 28(H) 6 - 25 mg/dL [facility] Creatinine 1.31(H) 0.60 - 1.10 mg/dL [facility] Glucose 254(H) 70 - 199 mg/dL [facility] Comment: Interpretive Data Fasting glucose >/= [...] 2022. Calcium 9.7 8.5 - 10.3 mg/dL [facility] Phosphorus, pl 3.1 2.3 - 4.5 mg/dL [facility] Albumin 4.2 3.5 - 5.0 g/dL [facility] Blood 07/20/2024 1:31 PM CDT 07/20/2024 1:58 PM CDT us Merna Bell MD LAB BLOOD ORDERABLES Final Re sult [facility] [address] [facility] [place] [address] * (ABNORMAL) Lipid panel (07/20/2024 1:31 PM [...] revised on 2017. Triglycerides 186(H) <=149 mg/dL [facility] Comment: Interpretive Data Ages < [...] revised on 2017. HDL 46 >=40 mg/dL [facility] Comment: Interpretive Data Ages < or [...] on 2017. LDL, calculated 117 <=129 mg/dL [facility] Comment: Interpretive Data Ages < or [...] revised on 2024. Non-HDL Cholesterol 150 mg/dL [facility] Comment: Interpretive Data Ages < [...] revised on 2017. Chol/HDL ratio 4 [facility] Blood 07/20/2024 1:31 PM CDT 07/20/2024 1:58 PM CDT us Merna Bell MD LAB BLOOD ORDERABLES Final Re sult [facility] [address] [facility] [place] [address] * POCT hemoglobin A1c (07/20/2024 11:14 AM CDT) Hemoglobin A1C, POC 6.6 4.0 - 5.6 % Blood 07/20/2024 11:1 4 AM CDT us Merna Bell MD POINT OF CARE TEST ORDERABLES Final Result * POCT glucose (07/20/2024 11:13 AM CDT) Glucose Blood, POC 344 mg/dL Blood 07/20/2024 11:1 3 AM CDT us Merna Bell MD POINT OF CARE TEST ORDERABLES Final Result * (ABNORMAL) CBC with auto differential (04/27/2024 9:24 AM CASE LINER) WBC 7.8 3.8 - 10.8 Thousand/u L [...] 11.0 - 15.0 % [facility] Platelets 268 140 - 400 Thousand/u [...] [facility] Blood 04/27/2024 9:24 AM CASE LINER 04/27/2024 9:25 AM CASE LINER us Lia Mariano NP LAB BLOOD ORDERABLES Phyllis alanis Result [facility] [address] [place] [address] * Albumin Creatinine Ratio, Urine (10/29/2023 9:30 AM CDT) Microalb, Ur 7.9 0.0 - 22.9 mg/L [facility] Random Urine Creatinine 109.6 mg/dL [facility] Microalb/Creat Ratio 7.2 0.0 - 29.9 mg/g [facility] Urine 10/29/2023 9:30 AM CDT 10/29/2023 11:19 AM CDT Lia Mariano NP LAB URINE ORDERABLES Phyllis alanis Result [facility] * Dexa Axial Skeleton Bone Density 1 or 2 Site (12/03/2022 10:04 AM CDT) Anatomical Region Laterality Modality Body N/A Radiographic Luba ging Narrative 12/04/2022 1:59 PM CDT Patient Name: Isabelle Lutz Date of : 1950 Date of scan: 12/03/2022 Bone mineral density was performed on a [employer] Discovery Densitometer. Based on machine cross-calibration and [...] by the International Society of Clinical Densitometry. [id number] Merna Bell MD IMG DXA PROCEDURES Final Resu lt from Last 3 Months or Most Recently Relevant to Health Maintenance Insurance MEDICARE [facility] FEDERAL MEDICARE [facility] MEDICARE MEDICARE [facility] Advance Directives For more information, please contact: [phone] * Full Code (Latest Code Status on File) Date Activated Date Inactivated Comments 01/20/2024 5:39 PM 01/28/2024 5:37 PM * Full Code Date Activated Date Inactivated Comments 11/25/2023 10:11 AM 11/25/2023 6:07 PM * Full Code Date Activated Date Inactivated Comments 11/15/2023 4:07 PM 11/16/2023 7:24 PM Care Teams Title Inspector Relationship Specialty Start Date End Date Malcharek, Elpidio, MD PCP - General Internal Medicine 06/09/18
--- OUTSIDE RECORDS SUMMARY | 2024-07-22 20:20 | XMS_ITS | Encounter Summary ---
Author Organization [facility] Address [address] [place] [address] Phone Care Team Providers Care Racing Car Driver Name Role Phone Elpidio Serrato MD Primary Care Provider [phone] Encounter Details Date Type Department Care Team (Late st Contact Info) Description 07/21/2024 Results Follow-Up [facility] Endocrinology Metabolism and Lipid [address] [facility] [address] [place] [address] [place] [address] Merna Bell MD [address] [facility] [address] [place], [place] [id number] Social History Tobacco Use Types Packs/Day Years [...] on file Legal Sex Female 3:59 AM SEAPORT PLANNING MANAGER Gender Identity Female 05/13/2021 4:21 PM SEAPORT PLANNING MANAGER Sexual Orientation Not on file documented as of this encounter Plan of Treatment Not on file documented as of this encounter Visit Diagnoses Not on filedocumented in this encounter Care Teams Racing Car Driver Relationship Specialty Start Date End Date Elpidio Serrato MD PCP - General Internal Medicine 06/09/18 documented as of this encounter
--- OUTSIDE RECORDS SUMMARY | 2024-07-22 20:20 | XMS_ITS | Clinical Summary ---
Author Organization [facility] Address [facility] [place] [address] Care Team Providers Care Senior Loan Processor Name Role Phone Elpidio Serrato MD Primary Care Provider [phone] Allergies Active Allergy Reactions Criticality Noted Date Comments Pseudoephedrine Tachycardia Valacyclovir Other (see comment) 08/12/2018 put me in renal failure Medications latanoprost 0.005 % ophthalmic solution Apply 1 drop to eye. 06/09/19 19 Active Glucose Blood test strip by in vitro route. 02/02/20 09 Active insulin glargine (LANTUS) 100 UNIT/ML injection (PEN) Inject 17 Units into the skin every morning. 05/07/20 18 Active levothyroxine 88 MCG tablet Take 1 tablet (88 mcg total) by mouth daily. 1 05/23/19 19 Active aspirin EC (ECOTRIN) 81 MG tablet Take 1 tablet (81 mg total) by mouth daily. Active COMBIGAN 0.2-0.5 % ophthalmic solution INSTILL 1 DROP INTO BOTH EYES TWICE A DAY 10/01/19 20 Active semaglutide (OZEMPIC, 1 MG/DOSE,) 2 MG/1.5ML injection (PEN) INJECT 1MG SUBCUTANEOUSLY ONCE A WEEK 02/07/20 21 Active empagliflozin (JARDIANCE) 10 MG tablet Take 1 tablet (10 mg total) by mouth daily. 02/07/20 21 Active furosemide (LASIX) 20 MG tablet Take 0.5 tablets (10 mg total) by mouth daily. 02/05/20 24 Active metoprolol succinate ER (TOPROL-XL) 25 MG 24 hr tablet Take 0.5 tablets (12.5 mg total) by mouth daily. 01/29/20 Active clopidogrel (PLAVIX) 75 MG tablet Take 1 tablet (75 mg total) by mouth daily. 01/29/20 Active SENOKOT 8.6 MG tablet 1 tablet (8.6 mg total). 02/05/20 Active acetaminophen CR (TYLENOL) 650 MG Tab CR 8 hr tablet Take 1 tablet (650 mg total) by mouth. 01/28/20 Active atorvastatin (LIPITOR) 40 MG tablet 1 tablet (40 mg total). 10/29/19 24 Active Cyanocobalamin (VITAMIN B-12) [address] 5,000 mcg under the tongue daily. 03/02/20 24 025 Active NOVOLOG FLEXPEN 100 UNIT/ML injection (PEN) 08/20/19 Active HUMALOG KWIKPEN 100 UNIT/ML injection (PEN) 01/28/20 Active BD PEN NEEDLE WENDY 2ND GEN 32G X 4 MM Misc USE DIRECTED 3 TIMES A DAY 02/20/20 Active vitamin D2, ergocalciferol , 86852 UNITS capsule Take 1 capsule (1.25 mg total) by mouth weekly. 08/08/19 11 025 Discontin ued(Thera py completed ) oxyCODONE immediate release (ROXICODONE) 5 MG immediate release tablet 1 tablet (5 mg total). 01/28/20 24 025 Discontin ued(Thera py completed ) diclofenac sodium (VOLTAREN) 1 % gel Apply 4 g topically 4 (four) times daily. 100 g 02/19/20 24 025 Discontin ued(Thera py completed ) mupirocin (BACTROBAN) 2 % ointment 12/19/19 24 025 Discontin ued(Thera py completed ) Active Problems Problem Noted Date Diagnosed Date Cellulitis 07/13/2024 Fracture of triquetral bone of left wrist 2024 Anemia 2024 At risk for venous thromboembolism (VTE) 024 Overview (07/13/2024): Problem added by Discern Expert Rule: EBN_VTERISKPROB_3 AF (paroxysmal atrial fibrillation) ([facility]) 01/25/2024 ABLA (acute blood loss anemia) 01/22/2024 Diabetic neuropathy ([facility]) 01/21/2024 Overview (07/13/2024): Sensation to low-amplitude, low frequency (128 Hz) vibration is absent over the distal foot and toes. CAD, multiple vessel 01/20/2024 ROSE (dyspnea on exertion) 11/19/2023 Stable angina 11/16/2023 Abnormal stress echocardiogram 11/15/2023 Hyperphosphatemia 11/15/2023 Overview (07/13/2024): Last phos 4.5 Congestive heart failure ([facility]) 11/11 Overview (02/25/2024): HFmrEF, last EF per TTE 45%, hypervolemic on exam today. Morbid (severe) obesity due to excess calories 0 08/14/2023 Body mass index (BMI) 40.0-44.9, adult Age-related osteoporosis wit hout current pathological fracture 04/29/2023 Chronic kidney disease (CKD) stage G3b/A1, moderately decreased glomerular filtration rate (GFR) between 30-44 mL/min/1.73 square meter and albuminuria creatinine ratio less than 30* 12/25/2021 Overview (08/14/2023): Last Assessment & Plan: [...] get some sun when it comes out. Clavicle enlargement 06/16/2018 Overview (07/13/2024): Will image to determine etiology. Nuclear sclerotic cataract of both eyes 06/11/19 19 Overview (10/12/2019): Last Assessment & Plan: NVS. Continue to Monitor. I am scribing in the presence of Dr. Thomas on 07/03/2019, HALLEY Ramos. I have examined the patient and agree with the resident/fellow's findings and plan as documented. Niranjan Thomas MD Benign essential hypertension 02/10/2018 Type 2 diabetes mellitus ([facility]) 12/07 Overview (08/14/2023): Last Assessment & Plan: [...] changes. Actinic keratosis 07/17/2012 Nonproliferative diabetic retinopathy (CMS/HCC H HS/HCC) 11/03/2009 Osteoarthritis of knee 12/16/2007 Overview (08/12/2018): Last Assessment & Plan: Follow-up with data storage specialist. Hyperlipidemia 07/21/2006 Overview (08/14/2023): Last Assessment & Plan: Lipid abnormalities are improving with treatment. LDL is 97 mg/dl. The patient was referred to the music publicist. and Pharmacotherapy as ordered. Lipids will be [...] bilateral knee pain, recommended water based exercises Resolved Problems Problem Noted Date Diagnosed Date Resolved Date Encounter for preprocedural cardiovascular examination 12/12/2023 07/20/2024 Encounters Date Type Department Care Team Description 07/13/2024 1:40 PM HELPER ELECTRICAL Office Visit [facility] Multispecialty Care - [address], [address] [place] [address] Kirill Montelongo MD Follow Up 07/13/2024 Travel 04/25/2024 Scan [facility] INFO SRVCS Scanned, Doc Med Group Image (SCAN) from Last 3 Months Immunizations Name Administration [...] 08/12/2018 Pneumococcal(Ppv 23)Aka Pneumovax 04/29/2017 Zoster (Zostavax) 49694 Unt/0.65Ml 04/29/2017 Family History Medical History Relation Comments Diabetes Brother Diabetes Mother Heart Attack Mother Kidney Disease Mother Open Heart Mother Diabetes Sister Relation Status Comments Brother Father Mother (Age 71) Sister Social History Tobacco Use Types Packs/Day Years Used Date Smoking Tobacco: Never Smokeless Tobacco: Never Tobacco Cessation:Counseling Given: Yes Alcohol Use Standard Drinks/Week Comments No 0 [...] Sign Reading Time Taken Comments Blood Pressure 138/74 07/13/2024 1:32 PM HELPER ELECTRICAL Pulse 90 07/13/2024 1:32 PM HELPER ELECTRICAL Temperature 36.5 C (97.7 F) 07/13/2024 1:32 PM HELPER ELECTRICAL Respiratory Rate 18 07/13/2024 1:32 PM HELPER ELECTRICAL Oxygen Saturation 97% 07/13/2024 1:32 PM HELPER ELECTRICAL Inhaled Oxygen Concentration - - Weight 85.3 kg (188 lb) 07/13/2024 1:32 PM HELPER ELECTRICAL Height 152.4 cm (5') 07/13/2024 1:32 PM HELPER ELECTRICAL Body Mass Index 36.72 07/13/2024 1:32 PM HELPER ELECTRICAL Plan of Treatment Upcoming Encounters Date Type Department Care Team (Late st Contact Info) Description 01/12/2025 1:00 PM CDT Office Visit [facility] Medical Group Multispecialty Care - [address], [address] [place] [address] Kirill Montelongo MD [address] [place] [address] Health Maintenance Due Date Last Done Comments ASCVD LDL 1950 Colorectal Cancer Screening Colonoscopy (10 Years) 1950 Kidney Health Evaluation 1950 Lipid Panel 1950 Diabetes: Retinopathy Eye Exam 1967 Hepatitis C 1967 DTaP, Tdap and Td Vaccines (1 - Tdap) 1968 Zoster Vaccines (2 of 3) 06/24/2017 04/29/2017 Annual Medicare Wellness Visit 02/16/2022 02/15/2021 Hemoglobin A1C 04/29/2024 10/29/2023, 06/13, 10/23/2021, Additional history exists PHQ-2 (Physician [place]) 05/13/2024 08/14/2023 Pneumococcal Vaccine: 65+ Years Completed 08/12/2018, 04/29/2017 Dexa Scan (General) Completed 12/03/2022, 12/03/2022, 07/13/2020 RSV Immunization or 60+ Years Completed 04/20/2023 COVID-19 Vaccine Completed 03/05/2024, 01/2023, 02/28/2022, Additional history exists Influenza Adult Completed 03/05/2024, 01/12, 02/28/2022, Additional history exists Meningococcal B Vaccine Aged Out No l onger eligible based on patient's age to complete this topic Meningococcal Vaccine Aged Out No terry jeffrey eligible based on patient's age to complete this topic RSV Immunizations Under 20 Months Aged Out No longer eligible based on patient's age to complete this topic Procedures Procedure Name Priority Date/Time Associated Diagnosis Comments IMAGE GENERIC 04/25/2024 OUTSIDE LAB (SCAN ORDER) Routine 10/29/2023 from Last 3 Months or Most Recently Relevant to Health Maintenance Results * IMAGE GENERIC (04/25/2024) Anatomical Region Laterality Modality Other 04/25/2024 [facility] Scanned SCANNING Final Resu lt * OUTSIDE LAB (10/29/2023) HGB A1C 5.9 % [facility] 10/29/2023 [facility] Scanned SCANNING Final Resu lt [facility] from Last 3 Months or Most Recently Relevant to Health Maintenance Insurance [facility] MEDICARE Care Teams Senior Loan Processor Relationship Specialty Start Date End Date Elpidio Serrato MD [address] [place] [phone] PCP - General INTERNAL MEDICINE 06/19/18
--- OUTSIDE RECORDS SUMMARY | 2024-07-22 20:20 | XMS_ITS | Encounter Summary ---
Author Organization [facility] Address [address] [place] [address] Phone Care Team Providers Care Occupational Therapy Co Director Name Role Phone Elpidio Serrato MD Primary Care Provider [phone] Encounter Details Date Type Department Care Team (Late st Contact Info) Description 07/13/2024 Telephone [facility] Cardiology [address] [facility] [facility] 8th [place] [address] [place] [address] Gris Barillas MD [address] [facility] [address] [place] [address] Social History Tobacco Use Types Packs/Day Years [...] on file Legal Sex Female 3:59 AM DIESEL ENGINE MECHANIC APPRENTICE Gender Identity Female 05/13/2021 4:21 PM DIESEL ENGINE MECHANIC APPRENTICE Sexual Orientation Not on file documented as of this encounter Miscellaneous Notes * Telephone Encounter - Yumiko Alejo RN - 07/14/2024 10:54 AM DIESEL ENGINE MECHANIC APPRENTICE Images from the original note were not included. Rater, JAMES Dunlap You19 hours ago (3:24 PM) She can stop the Plavix for 3 days but should stay on the baby aspirin, thanks Letter faxed as requested EL ENGINE MECHANIC APPRENTICE * Telephone Encounter - Leeanne Salvador - 07/13/2024 10:48 AM CST [facility] office callings stating pt needs to be off blood thinner for 3 days prior to dental work. Waiting on clearance to get work scheduled. Please call with any questions for fax hold to [phone] EL ENGINE MECHANIC APPRENTICE documented in this encounter Plan of Treatment Not on file documented as of this encounter Visit Diagnoses Not on filedocumented in this encounter Care Teams Occupational Therapy Co Director Relationship Specialty Start Date End Date Elpidio Serrato MD PCP - General Internal Medicine 06/09/18 documented as of this encounter
--- OUTSIDE RECORDS SUMMARY | 2024-07-22 20:20 | XMS_ITS | Patient Health Summary ---
Author Organization [facility] Address [address] [place] [address] Care Team Providers Care Quarry Manager Name Role Phone Unavailable Primary Care Provider Unavailabl e Note from [facility][note 3],non-owned Affiliates and Associated Physician Practices is amultiple site organization consisting of ambulatory clinics and hospital sitesin [place], [place], [place] and [place]. This disclosure is being madepursuant to the Care Everywhere program and may not contain all information available regarding this patient. Last updated 18.[facility] Social History Tobacco Use Types Packs/Day Years Used Date Smoking Tobacco: Never Assessed Sex and Gender Information Value Date Recorded Sex Assigned at Not on file Gender Identity Not on file Sexual Orientation Not on file Procedures * GROSS + MICRO EXAM(Performed 04/17/2005) * CYTOLOGY SMEAR PAP THIN PREP(Performed 02/17/1998) Results * GROSS + MICRO EXAM (04/17/2005 10:36 AM HIGH LEAD YARDER) Result CASE NUMBER [id number] Comment: ORDERING PHYSICIAN JACKSON BALLARD SPECIMEN TYPE Cervix Conization-@ 1200 Date 04/17/2005 Physician Kellee Ballard Gross Description The specimen is received in a formalin filled container labeled with the patient's name and LEEP suture rosalino at 12 o'clock. It consists of two pieces of tissue, one is semi-lunar and has a stitch at one edge measuring 1.6 x 1.1 x 0.6 cm. The mucosa is pink with dark purple discoloration, mainly in the 12 to 6 o'clock half. There is elongated piece of unoriented tissue received measuring 2.0 x 0.6 x 0.5 cm. The surgical margin is inked black. Sections are submitted as follows A is the twelve to three quarter quadrant. B is the three to six quadrant. C is the six to nine quadrant. D is the nine to twelve quadrant. E is the separately received tissue. MS/db Microscopic Exam Sections of all of the specimens show [...] invasive malignancy is seen. MS/na RT Diagnosis I. Cervical cone, LEEP -- Low-grade squamous intraepithelial lesion (RADHA 1) with focal koilocytic change 6 to 9 and 9 to 12 o'clock quadrants. -- No high-grade dysplasia or invasive malignancy is seen -- Evidence of previous surgical intervention II. Separately submitted specimen -- Low-grade intraepithelial lesion (RADHA 1 with focal koilocytic change, focally approximating inked margin of resection) MS/na RT Deputy Assessor na Pathologist Ck Roberts M.D. [facility]. 04/18/2005 1608 <1> CPT code 46563,64120 MISCELLANEOUS SAMPLES / Unknown 04/17/2005 10:36 AM HIGH LEAD YARDER 04/17/2005 10:39 AM HIGH LEAD YARDER Historical Provider LAB - PATHOLOGY/C YTOLOGY ORDERABLES * CYTOLOGY SMEAR PAP THIN PREP (02/17/1998 2:07 PM CDT) Result CASE NUMBER [id number] Comment: ORDERING PHYSICIAN JACKSON BALLARD SPECIMEN TYPE PAP Smear Date 02/17/1998 Procedure Cervical/Endocervical, 1 Vial for Thin Prep Received Specimen Adequacy Satisfactory for Evaluation but Limited No endocervical component in a non-atrophic cervical smear. Categorization Within Normal Limits Snomed. 02/23/1998 1621 <1> Circulation Clerk Iris Stewart(ASCP) PAP Footnote The PAP smear is only a screening procedure to aid in the detection of cervical cancer and its precursors. It is not a diagnostic procedure and should not be used as the sole means to detect cervical cancer. Both false negative and false positive results have been experienced. MISCELLANEOUS SAMPLES / Unknown 02/17/1998 2:07 PM CDT 02/18/1998 2:07 PM CDT Historical Provider LAB - PATHOLOGY/C YTOLOGY ORDERABLES
[2024-07-22 20:22] VITALS: BP 145/72; PULSE 104; RESP 16; TEMP 36.9; O2SAT 99
[2024-07-22 20:40] LABS: Basophils Percent Auto 0.5 % (0.2-1.2); Eosinophils Percent Auto 0.7 % (0-4.4); Hemoglobin 13.1 g/dL (12.0-15.0); Immature Granulocyte Absolute 0.02 K/mm3 (0.00-0.031); Immature Granulocyte Percent A 0.3 % (0-0.5); Lymphocytes Absolute Auto 0.76 K/mm3 (0.9-3.2); Lymphocytes Percent Auto 13.2 % (18.3-44.2); Mean Corpuscular HGB Conc 33.6 g/dl (32-36); Mean Corpuscular Hemoglobin 29.8 pg (26-34); Mean Corpuscular Volume 88.8 fl (80-100); Mean Platelet Volume 10.7 fl (7.4-10.4); Monocytes Absolute Auto 0.6 K/mm3 (0.1-0.6); Monocytes Percent Auto 10.6 % (2.6-8.5); Neutrophils Absolute Auto 4.3 K/mm3 (1.3-6.7); Neutrophils Percent Auto 74.7 % (45.5-73.1); Platelet Count Result 219 k/mm3 (150-375); Red Blood Count 4.39 M/mm3 (4.2-5.4); Red Cell Distribution Width 14.4 % (11.5-14.5); White Blood Count 5.8 K/mm3 (4.5-10.0)
[2024-07-22 20:50] LABS: Prothrombin Time 13.9 Seconds (11.1-14.7)
[2024-07-22 20:51] LABS: Partial Thromboplastin Time 30.3 Seconds (22.3-36.8)
[2024-07-22 20:52] LABS: Alanine Aminotransferase 26 U/L (6-35); Albumin Level 4.1 g/dL (3.5-5.1); Alkaline Phosphatase 98 U/L (38-126); Anion Gap 13 mmol/L (4-12); Aspartate Amino Transferase 34 U/L (14-36); Bilirubin,Total 0.2 mg/dL (0.2-1.3); Blood Urea Nitrogen 19 mg/dL (7-17); Calcium 8.6 mg/dL (8.4-10.2); Carbon Dioxide 20 mmol/L (22-30); Chloride 101 mmol/L (98-107); Estimated Glomerular Filt Rate 47; Glucose 167 mg/dL (65-110); Lipase 316 U/L (23-300); Potassium 3.3 mmol/L (3.4-5.0); Sodium 134 mmol/L (137-145)
[2024-07-22 21:02] LABS: Troponin I < 0.012 ng/mL (0.000-0.034)
[2024-07-22 21:17] LABS: Influenza A QL RT-PCR Negative (Negative); Influenza B QL RT-PCR Negative (Negative); RSV RNA, RT-PCR Negative (Negative); SARS-CoV-2 RNA PCR Positive (Negative)
--- OUTSIDE RECORDS SUMMARY | 2024-07-22 23:33 | XMS_ITS | Clinical Summary ---
Author Organization [facility] Address [facility] [place] [address] Care Team Providers Care Critical Care Unit Nurse Name Role Phone Elpidio Serrato MD Primary Care Provider [phone] Allergies Active Allergy Reactions Criticality Noted Date [...] DAY 02/20/20 Active vitamin D2, ergocalciferol , 83711 UNITS capsule Take 1 capsule (1.25 mg [...] Expert Rule: EBN_VTERISKPROB_3 AF (paroxysmal atrial fibrillation) ([facility]) 01/25/2024 ABLA (acute blood loss anemia) 01/22/2024 Diabetic neuropathy ([facility]) 01/21/2024 Overview (07/13/2024): Sensation to low-amplitude, low frequency (128 Hz) vibration is absent over the distal foot and toes. CAD, multiple vessel 01/20/2024 ROSE (dyspnea on exertion) 11/19/2023 Stable angina 11/16/2023 Abnormal stress echocardiogram 11/15/2023 Hyperphosphatemia 11/15/2023 Overview (07/13/2024): Last phos 4.5 Congestive heart failure ([facility]) 11/11 Overview (02/25/2024): HFmrEF, last EF per [...] essential hypertension 02/10/2018 Type 2 diabetes mellitus ([facility]) 12/07 Overview (08/14/2023): Last Assessment [...] (08/12/2018): Last Assessment & Plan: Follow-up with life skills specialist. Hyperlipidemia 07/21/2006 Overview (08/14/2023): Last Assessment & Plan: Lipid abnormalities are improving with treatment. LDL is 97 mg/dl. The patient was referred to the punch out crew member. and Pharmacotherapy as ordered. Lipids will be [...] Department Care Team Description 07/13/2024 1:40 PM EVENTS ASSISTANT Office Visit [facility] Medical Group Multispecialty Care - [address], [address] [place] [address] Kirill Montelongo MD Follow Up [...] 08/12/2018 Pneumococcal(Ppv 23)Aka Pneumovax 04/29/2017 Zoster (Zostavax) 17984 Unt/0.65Ml 04/29/2017 Family History Medical History Relation [...] Comments Blood Pressure 138/74 07/13/2024 1:32 PM EVENTS ASSISTANT Pulse 90 07/13/2024 1:32 PM EVENTS ASSISTANT Temperature 36.5 C (97.7 F) 07/13/2024 1:32 PM EVENTS ASSISTANT Respiratory Rate 18 07/13/2024 1:32 PM EVENTS ASSISTANT Oxygen Saturation 97% 07/13/2024 1:32 PM EVENTS ASSISTANT Inhaled Oxygen Concentration - - Weight 85.3 kg (188 lb) 07/13/2024 1:32 PM EVENTS ASSISTANT Height 152.4 cm (5') 07/13/2024 1:32 PM EVENTS ASSISTANT Body Mass Index 36.72 07/13/2024 1:32 PM EVENTS ASSISTANT Plan of Treatment Upcoming Encounters Date Type Department Care Team (Late st Contact Info) Description 01/12/2025 1:00 PM CDT Office Visit [facility] Medical [facility] Multispecialty Care - [address], [address] [place] [address] Kirill Montelongo MD [address] [place] [address] Health Maintenance Due Date Last Done Comments [...] 06/13, 10/23/2021, Additional history exists PHQ-2 (Physician [place]) 05/13/2024 08/14/2023 Pneumococcal Vaccine: 65+ Years Completed [...] (04/25/2024) Anatomical Region Laterality Modality Other 04/25/2024 [facility] Scanned SCANNING Final Resu lt * OUTSIDE LAB (10/29/2023) HGB A1C 5.9 % [facility] 10/29/2023 [facility] Scanned SCANNING Final Resu lt [facility] from Last 3 Months or Most Recently Relevant to Health Maintenance Insurance [facility] MEDICARE Care Teams Critical Care Unit Nurse Relationship Specialty Start Date End Date Elpidio Serrato MD [address] [place] [phone] PCP - General INTERNAL MEDICINE 06/19/18
--- OUTSIDE RECORDS SUMMARY | 2024-07-22 23:33 | XMS_ITS | Referral Summary ---
Author Organization [facility] Address [address] [place] [address] Care Team Providers Care Pocket Creaser Name Role Phone Elpidio Serrato MD Primary Care Provider [phone] Encounters Date Type Department Care Team Description 07/21/2024 Results Follow-Up [facility] Endocrinology Metabolism and Lipid [address] [facility] Medicine 13th [place] [address] [place] [address] Merna Bell MD 07/20/2024 3:50 PM CDT Lab [facility] [address] [place] [phone] Mixed hyperlipidemia; Hypothyroidism, unspecified type; Chronic congestive heart failure, unspecified heart failure type (HCC); Chronic kidney disease (CKD) stage G3b/A1, moderately decreased glomerular filtration rate (GFR) between 30-44 mL/min/1.73 square meter and albuminuria creatinine ratio less than 30 mg/g (HCC); Other iron deficiency anemia 07/20/2024 11:40 AM CDT Office Visit [facility] Endocrinology Metabolism and Lipid [facility] Medicine 13th [place] [address] [place] [address] Merna Bell MD Type 2 diabetes mellitus [...] congestive heart failure, unspecified heart failure type ([facility]); Hypothyroidism, unspecified type 07/13/2024 Orders Only [facility] Cardiology [address] [place] [address] [facility] 8th [place] [address] [place] [phone] Rater, JAMES Dunlap 07/13/[address] 8th [place] [address] [place] [phone] Gris Barillas MD 05/29/2024 Orders Only [address] 8th [place] [address] [place] [phone] Gris Barillas MD CAD, multiple vessel (Primary [...] long-term current use of insulin, unspecified laterality ([facility]) Use 4X daily 300 each 3 023 [...] cut at dc Coronary artery disease involving grayling heart 0 12/12/2023 Encounter for preprocedural cardiovascular exami [facility] 12/12/2023 ROSE (dyspnea on exertion) 11/19/2023 Stable [...] D2. Assessment & Plan (06/13/2020 1:43 PM ABSORPTION PLANT OPERATOR HELPER): Check 25OHD, especially if considering therapy for osteoporosis. Assessment & Plan (02/08/2020 3:28 PM CDT): Consider bone DXA with next visit in person, if possible. Assessment & Plan (08/24/2019 10:11 AM CDT): Continue vitamin D supplementation, may be important if you encounter COVID-19. Stay home but get some sun when it comes out. Assessment & Plan (04/01/2019 11:31 AM ABSORPTION PLANT OPERATOR HELPER): Levels normal 06/2018. Continue weekly ergocalciferol Clavicle enlargement 06/16/2018 Overview (06/16/2018): Will image to determine etiology. Assessment & Plan (06/16/2018 9:20 PM ABSORPTION PLANT OPERATOR HELPER): X-ray shows osteoarthritis with osteophytes. Odd, but does not need follow-up. Primary open angle glaucoma (POAG) of both eyes, moderate stage 06/11/2018 Assessment & Plan (07/15/2023 8:54 AM ABSORPTION PLANT OPERATOR HELPER): Doing well without concerns IOP at goal [...] concerns. Assessment & Plan (06/22/2022 7:41 AM ABSORPTION PLANT OPERATOR HELPER): POW1 EXTRACTION CATARACT - PHACOEMULSIFICATION AND LENS [...] OS Assessment & Plan (06/15/2022 8:25 AM ABSORPTION PLANT OPERATOR HELPER): POD1 EXTRACTION CATARACT - PHACOEMULSIFICATION AND LENS [...] concerns. Assessment & Plan (06/04/2022 2:51 PM ABSORPTION PLANT OPERATOR HELPER): Progression of field - plan for goniotomy at time of surgery Continue drops at this time Assessment & Plan (05/19/2021 4:27 PM ABSORPTION PLANT OPERATOR HELPER): POAG OU Mild HVF with progression of [...] OU Assessment & Plan (04/25/2020 8:08 AM ABSORPTION PLANT OPERATOR HELPER): POAG, former Dr. Thomas patient Mild OU [...] weeks. Assessment & Plan (07/03/2019 9:12 AM ABSORPTION PLANT OPERATOR HELPER): Patient returns S/P SLT OD -05/28/2019 -IOP Today by Ta 24/04 by tonopen. -A1C was around 7% at last visit on March 31. RTC 5 months for intraocular pressure (IOP) by applanation and HANS Drops: Combigan BID OU Latanoprost QHS OD Assessment & Plan (04/23/2019 10:48 AM ABSORPTION PLANT OPERATOR HELPER): Patient returns for 6 months follow-up with [...] 06/11/2018 Assessment & Plan (07/15/2023 8:54 AM ABSORPTION PLANT OPERATOR HELPER): Lenses doing well Assessment & Plan (06/22/2022 7:41 AM ABSORPTION PLANT OPERATOR HELPER): The patient understands the risks, benefits, alternatives [...] eye. Assessment & Plan (06/04/2022 2:52 PM ABSORPTION PLANT OPERATOR HELPER): NS OU The patient understands the risks, [...] eye. Assessment & Plan (05/19/2021 4:27 PM ABSORPTION PLANT OPERATOR HELPER): Now becoming VS Plan for CEIOL\goniotomy in [...] Master Assessment & Plan (04/16/2020 8:17 AM ABSORPTION PLANT OPERATOR HELPER): Nearing visual significance May need CEIOL/MIGS soon, but monitor for now Assessment & Plan (01/25/2020 8:46 AM CDT): Nearing visual significance May need CEIOL/MIGS soon, but monitor for now Assessment & Plan (12/05/2019 7:42 PM CDT): Pt ed. Defer cataract extraction (CE) until signs/sx indicate. Assessment & Plan (07/03/2019 9:13 AM ABSORPTION PLANT OPERATOR HELPER): NVS. Continue to Monitor. I am scribing in the presence of Dr. Thomas on 07/03/2019, HALLEY Ramos. I have examined the patient and agree with the resident/fellow's findings and plan as documented. Niranjan Thomas MD Assessment & Plan (04/23/2019 10:45 AM ABSORPTION PLANT OPERATOR HELPER): HALLEY Joseph scribing for and in the [...] calories. Assessment & Plan (06/13/2020 1:43 PM ABSORPTION PLANT OPERATOR HELPER): Glucose control could not be fully assessed [...] doses. Assessment & Plan (04/01/2019 11:28 AM ABSORPTION PLANT OPERATOR HELPER): Diabetes is worsening. Increase Lantus to 50 [...] months. Assessment & Plan (06/16/2018 9:16 PM ABSORPTION PLANT OPERATOR HELPER): Diabetes is improving with treatment. Continue current [...] recheck. Assessment & Plan (06/13/2020 1:39 PM ABSORPTION PLANT OPERATOR HELPER): Has been well controlled on low dose levothyroxine, will check TSH. Assessment & Plan (02/08/2020 3:27 PM CDT): TSH is perfect, no changes to levothyroxine dose. Assessment & Plan (04/01/2019 11:27 AM ABSORPTION PLANT OPERATOR HELPER): Continue current replacement, 88 mcg. Will check TSH today Assessment & Plan (06/16/2018 9:17 PM ABSORPTION PLANT OPERATOR HELPER): Thyroid functions are normal on current replacement, 88 mcg. No changes. Actinic keratosis 07/17/2012 Osteoarthritis of knee 12/16/2007 Assessment & Plan (06/16/2018 9:19 PM ABSORPTION PLANT OPERATOR HELPER): Follow-up with youth specialist. Hyperlipidemia 07/21/2006 Assessment & Plan (11/15/2023 [...] months. Assessment & Plan (06/13/2020 1:44 PM ABSORPTION PLANT OPERATOR HELPER): Last LDL was 90, but diabetes therapies have changed. Will recheck. Assessment & Plan (02/08/2020 3:26 PM CDT): LDL is at target, continue simvastatin. Assessment & Plan (04/01/2019 11:29 AM ABSORPTION PLANT OPERATOR HELPER): Lipid abnormalities are improving with treatment. LDL is 47 in 06/2018. Continue simvastatin 40 mg daily Lipids will be reassessed in 6 months. Assessment & Plan (06/16/2018 9:17 PM ABSORPTION PLANT OPERATOR HELPER): Lipid abnormalities are improving with treatment. LDL is 97 mg/dl. The patient was referred to the wheel grinder. and Pharmacotherapy as ordered. Lipids will be reassessed in 6 months. Obesity 07/21/2006 Assessment & Plan (01/25/2024 12:48 PM CDT): - BMI 40.32 on admission - provide bariatric equipment Assessment & Plan (04/01/2019 11:30 AM ABSORPTION PLANT OPERATOR HELPER): Obesity is unchanged. She is less active after [facility]. Discussed the patient's BMI. The BMI is [...] Pharmacotherapy as ordered. Restructure the plan after [facility] in November. Hypertension 02/19/2006 Assessment & Plan [...] appointment. Assessment & Plan (06/16/2018 9:18 PM ABSORPTION PLANT OPERATOR HELPER): Hypertension is worsening, BP has increased to [...] on file Legal Sex Female 3:59 AM ABSORPTION PLANT OPERATOR HELPER Gender Identity Female 05/13/2021 4:21 PM ABSORPTION PLANT OPERATOR HELPER Sexual Orientation Not on file Last Filed [...] on file Medical Devices Implanted Type Area Participant Administrator Device Identifier Shelf Expiration Date Model / Serial / Lot [employer] Lens Iol Posterior Biconvex Optic Single Piece Envista 6.0x12.5 +18.0d Hydrophobic Acrylic [id number] - [id number] - [id number] Implanted:Qty: 1 on 06/14/2022 by Makayla Ramos MD at [facility] Lens Right: Lens [employer] [id number] 10/10/2024 [id number] / [id number] / [employer] Lens Iol Posterior Biconvex Optic Single Piece Envista 6.0x12.5 +18.0d Hydrophobic Acrylic [id number] - [id number] - [id number] Implanted:Qty: 1 on 08/16/2022 by Makayla Ramos MD at [facility] Lens Left: Eye [employer] [id number] 05/12/2025 [id number] / [id number] / [id number] [employer] Sternalock Hernan 2.4mm 16mm Self Drill Lock Sternum Cancellous 73-2416 - [id number] Implanted:Qty: 4 on 01/20/2024 by Jeff Alaniz MD at [facility] N/A: Sternum [employer] 73-2416 / / Trial [id number] Achv Atriclip Tony Exclusion System [id number] - [id number] Implanted:Qty: 1 on 01/20/2024 by Stan Treviño MD at [facility] N/A: Heart Atricure [id number] / / Description:clinical trial i tem [id number] ACHV ATRICLIP TONY EXCLUSION SYSTEM [id number] [employer] Suture [place] Cor Knot Pre Loaded Fastener Device Micro Titanium 0 15189 - S0 - [id number] Implanted:Qty: 1 on 01/20/2024 by Stan Treviño MD at [facility] N/A: Heart [employer] [id number] 06/12/2026 92767 / 0 / [id number] [employer] Suture [place] Cor Knot Pre Loaded Fastener Device Micro Titanium 0 01625 - S0 - [id number] Implanted:Qty: 1 on 01/20/2024 by Stan Treviño MD at [facility] N/A: Heart [employer] [id number] 09/09/2026 60551 / 0 / [id number] [employer] Suture Milan Cor Knot Pre Loaded Fastener Device Micro Titanium 0 68214 - S0 - [id number] Implanted:Qty: 1 on 01/20/2024 by Stan Treviño MD at [facility] N/A: Heart [employer] [id number] 07/10/2026 96674 / 0 / [id number] [employer] Suture Milan Cor Knot Pre Loaded Fastener Device Micro Titanium 0 04900 - S0 - [id number] Implanted:Qty: 1 on 01/20/2024 by Stan Treviño MD at [facility] N/A: Heart [employer] [id number] 10/10/2026 62436 / 0 / [id number] Atricure Device Left Atrial Appendage Malleable Shaft 180 Degree Rotation White Atriclip Flex V 40mm Flexv40 Achv40 - [id number] Implanted:Qty: 1 on 01/20/2024 by Stan Treviño MD at [facility] N/A: Heart [employer] 07/11/2026 [id number] / / [id number] Description:LEFT ATRIAL APPE NDAGE S/B clinical trial item [id number] ACHV ATRICLIP TONY EXCLUSION SYSTEM [id number] [employer] Sternalock 360 Sternal Closure 74-0004 - [id number] Implanted:Qty: 1 on 01/20/2024 by Jeff Alaniz MD at [facility] N/A: Sternum [employer] [id number] 11/04/2028 74-0004 / / [id number] [employer] Sternalock Hernan 2.4mm 14mm Self Drill Lock Sternum Cancellous 73-2414 - [id number] Implanted:Qty: 12 on 01/20/2024 by Jeff Alaniz MD at [facility] N/A: Sternum [employer] 73-2414 / [...] current use of insulin (HCC) POCT GLUCOSE 54602 Routine 07/20/2024 11:13 AM CDT Type 2 diabetes mellitus with stage 3a chronic kidney disease, with long-term current use of insulin (HCC) CBC WITH AUTO DIFFERENTIAL Routine 04/27/2024 9:24 AM ABSORPTION PLANT OPERATOR HELPER Anemia, unspecified type ALBUMIN CREATININE RATIO, URINE [...] LAB BLOOD ORDERABLES Final Re sult [facility] [place] [address] * Differential, auto (07/20/2024 1:31 PM CDT) Neutrophil abs 4.5 1.5 - 6.5 K/cumm Imm gran abs 0.0 0.0 - 0.1 K/cumm [facility] Lymphocyte abs 2.0 0.8 - 3.3 K/cumm [facility] Monocyte abs 0.5 0.2 - 0.8 K/cumm [facility] Eosinophil abs 0.1 0.0 - 0.5 K/cumm [facility] Basophil abs 0.0 0.0 - 0.1 K/cumm [facility] Neutrophil pct 63.2 % [facility] Comment: Interpretive Data Percent cell count reference ranges are not reported, since discordance with absolute values may lead to misinterpretation of CBC data. Current Interpretive Data was last revised on 2017. Imm gran pct 0.3 % [facility] Comment: Interpretive Data Percent cell count reference ranges are not reported, since discordance with absolute values may lead to misinterpretation of CBC data. Current Interpretive Data was last revised on 2017. Lymphocyte pct 27.9 % [facility] Comment: Interpretive Data Percent cell count reference ranges are not reported, since discordance with absolute values may lead to misinterpretation of CBC data. Current Interpretive Data was last revised on 2017. Monocyte pct 7.3 % [facility] Comment: Interpretive Data Percent cell count reference ranges are not reported, since discordance with absolute values may lead to misinterpretation of CBC data. Current Interpretive Data was last revised on 2017. Eosinophil pct 0.7 % [facility] Comment: Interpretive Data Percent cell [...] ORDERABLES Final Re sult [facility] [place] [address] * (ABNORMAL) Pro B-type natriuretic peptide (07/20/2024 [...] ORDERABLES Final Re sult Performing Organization Address [facility] [address]/[facility] Co de Phone Number [facility] [place] [address] * Thyroid Function [place] (07/20/2024 1:31 PM CDT) TSH 1.96 0.30 - 4.20 mcIUnit/mL Blood 07/20/2024 1:31 PM CDT 07/20/2024 1:58 PM CDT Merna Bell MD LAB BLOOD ORDERABLES Final Re sult Performing Organization Address [facility] [address]/[facility] de Phone Number [facility] [place] [address] * (ABNORMAL) Iron profile w/ IBC (07/20/2024 1:31 PM CDT) Iron 60 35 - 145 mcg/dL TIBC 221(L) 250 - 400 mcg/dL [facility] Transferrin saturation 27 20 - 50 % [facility] Blood 07/20/2024 1:31 PM CDT 07/20/2024 1:58 PM CDT Merna Bell MD LAB BLOOD ORDERABLES Final Re sult Performing Organization Address [facility] [address]/[facility] Co de Phone Number [facility] [place] [address] * CBC with auto differential (07/20/2024 1:31 PM CDT) [facility] WBC 7.2 3.8 - 9.9 K/cumm Hgb 13.7 11.9 - 15.5 g/dL [facility] Hct 40.1 35.6 - 45.5 % [facility] Plt 275 150 - 400 K/cumm [facility] MPV 10.2 9.1 - 12.3 fL [facility] RBC 4.63 3.90 - 5.20 M/cumm [facility] MCV 86.6 81.3 - 96.4 fL [facility] MCH 29.6 27.1 - 33.3 pg [facility] MCHC 34.2 32.3 - 35.7 g/dL [facility] RDW CV 14.2 11.1 - 14.9 % [facility] RDW SD 45.6 35.7 - 48.1 fL [facility] NRBC abs 0.00 0.00 - 0.01 K/cumm [facility] Blood 07/20/2024 1:31 PM CDT 07/20/2024 1:58 PM CDT us Merna Bell MD LAB BLOOD ORDERABLES Final Re sult [facility] [place] [address] * (ABNORMAL) Renal function panel (07/20/2024 1:31 PM CDT) [facility] Sodium 142 135 - 145 mmol/L Potassium, pl 3.8 3.3 - 4.9 mmol/L [facility] Chloride 105 97 - 110 mmol/L [facility] CO2 26 22 - 32 mmol/L [facility] Anion gap 11 2 - 15 mmol/L [facility] BUN 28(H) 6 - 25 mg/dL [facility] Creatinine 1.31(H) 0.60 - 1.10 mg/dL [facility] Glucose 254(H) 70 - 199 mg/dL [facility] Comment: Interpretive Data Fasting glucose [...] 2022. Calcium 9.7 8.5 - 10.3 mg/dL [facility] Phosphorus, pl 3.1 2.3 - 4.5 mg/dL [facility] Albumin 4.2 3.5 - 5.0 g/dL [facility] Blood 07/20/2024 1:31 PM CDT 07/20/2024 1:58 PM CDT us Merna Bell MD LAB BLOOD ORDERABLES Final Re sult [facility] [place] [address] * (ABNORMAL) Lipid panel (07/20/2024 1:31 PM [...] revised on 2017. Triglycerides 186(H) <=149 mg/dL [facility] Comment: Interpretive Data Ages < [...] revised on 2017. HDL 46 >=40 mg/dL [facility] Comment: Interpretive Data Ages < [...] on 2017. LDL, calculated 117 <=129 mg/dL [facility] Comment: Interpretive Data Ages < [...] revised on 2024. Non-HDL Cholesterol 150 mg/dL [facility] Comment: Interpretive Data Ages < [...] revised on 2017. Chol/HDL ratio 4 [facility] Blood 07/20/2024 1:31 PM CDT 07/20/2024 1:58 PM CDT us Merna Bell MD LAB BLOOD ORDERABLES Final Re sult [facility] [place] [address] * POCT hemoglobin A1c (07/20/2024 11:14 AM [...] CBC with auto differential (04/27/2024 9:24 AM ABSORPTION PLANT OPERATOR HELPER) WBC 7.8 3.8 - 10.8 Thousand/u L [...] [facility] Blood 04/27/2024 9:24 AM ABSORPTION PLANT OPERATOR HELPER 04/27/2024 9:25 AM ABSORPTION PLANT OPERATOR HELPER us Lia Mariano NP LAB BLOOD ORDERABLES Phyllis alanis Result [facility] [address] [place] [address] * Albumin Creatinine Ratio, Urine (10/29/2023 9:30 [...] Bone mineral density was performed on a HoloDiassess Discovery Densitometer. Based on machine cross-calibration and [...] by the International Society of Clinical Densitometry. [id number] Merna Bell MD IMG DXA PROCEDURES Final Resu lt from Last 3 Months or Most Recently Relevant to Health Maintenance Insurance MEDICARE [facility] FEDERAL MEDICARE [facility] MEDICARE MEDICARE [facility] Advance Directives For more information, please contact: [phone] * Full Code (Latest Code Status on File) Date Activated Date Inactivated Comments 01/20/2024 5:39 PM 01/28/2024 5:37 PM * Full Code Date Activated Date Inactivated Comments 11/25/2023 10:11 AM 11/25/2023 6:07 PM * Full Code Date Activated Date Inactivated Comments 11/15/2023 4:07 PM 11/16/2023 7:24 PM Care Teams Pocket Creaser Relationship Specialty Start Date End Date Malcharek, Elpidio, MD PCP - General Internal Medicine 06/09/18
--- OUTSIDE RECORDS SUMMARY | 2024-07-22 23:33 | XMS_ITS | Encounter Summary ---
Author Organization [facility] Address [address] [place] [address] Phone Care Team Providers Care Executive Candidate Developer Name Role Phone Elpidio Serrato MD Primary Care Provider [phone] Encounter Details Date Type Department Care Team (Late st Contact Info) Description 07/13/2024 Telephone [facility] [address] [facility] 8th [place] [address] [place] [address] Gris Barillas MD [address] [facility] [address] [place] [address] Social History Tobacco Use Types Packs/Day Years [...] file Legal Sex Female 3:59 AM WAREHOUSE PACKAGING SUPERVISOR Gender Identity Female 05/13/2021 4:21 PM WAREHOUSE PACKAGING SUPERVISOR Sexual Orientation Not on file documented as of this encounter Miscellaneous Notes * Telephone Encounter - Yumiko Alejo RN - 07/14/2024 10:54 AM WAREHOUSE PACKAGING SUPERVISOR Images from the original note were not included. Rater, JAMES Dunlap You19 hours ago (3:24 PM) She can stop the Plavix for 3 days but should stay on the baby aspirin, thanks Letter faxed as requested HOUSE PACKAGING SUPERVISOR * Telephone Encounter - Leeanne Salvador - 07/13/2024 10:48 AM CST [facility] callings stating pt needs to be off blood thinner for 3 days prior to dental work. Waiting on clearance to get work scheduled. Please call with any questions for fax hold to [phone] HOUSE PACKAGING SUPERVISOR documented in this encounter Plan of Treatment Not on file documented as of this encounter Visit Diagnoses Not on filedocumented in this encounter Care Teams Executive Candidate Developer Relationship Specialty Start Date End Date Elpidio Serrato MD PCP - General Internal Medicine 06/09/18 documented as of this encounter
--- OUTSIDE RECORDS SUMMARY | 2024-07-22 23:33 | XMS_ITS | Clinical Summary ---
Author Organization [facility] Address [address] [address] Care Team Providers Care Document Control Associate Name Role Phone Unavailable Primary Care Provider Unavailabl e Source Comments [facility],non-owned Affiliates and Associated Physician Practices is amultiple site organization consisting of ambulatory clinics and hospital sitesin [place], [place], [place] and [place]. This disclosure is being madepursuant to the Care Everywhere program and may not contain all information available regarding this patient. Last updated 18.[facility] Social History Tobacco Use Types Packs/Day Years [...]
--- OUTSIDE RECORDS SUMMARY | 2024-07-22 23:33 | XMS_ITS | Patient Health Summary ---
Author Organization [facility] Address [address] [place] [address] Care Team Providers Care Photographs Curator Name Role Phone Unavailable Primary Care Provider Unavailabl e Note from [facility],non-owned Affiliates and Associated Physician Practices is amultiple site organization consisting of ambulatory clinics and hospital sitesin [place], [place], [place] and [place]. This disclosure is being madepursuant to the Care Everywhere program and may not contain all information available regarding this patient. Last updated 18.[facility] Social History Tobacco Use Types Packs/Day Years Used Date Smoking Tobacco: Never Assessed Sex and Gender Information Value Date Recorded Sex Assigned at Not on file Gender Identity Not on file Sexual Orientation Not on file Procedures * GROSS + MICRO EXAM(Performed 04/17/2005) * CYTOLOGY SMEAR PAP THIN PREP(Performed 02/17/1998) Results * GROSS + MICRO EXAM (04/17/2005 10:36 AM TAPER MACHINE) Result CASE NUMBER [id number] Comment: ORDERING PHYSICIAN JACKSON BALLARD SPECIMEN TYPE [...] approximating inked margin of resection) MS/na RT Senior Tax Specialist na Pathologist Ck Roberts M.D. Snomed. 04/18/2005 1608 <1> CPT code 77061,70262 MISCELLANEOUS SAMPLES / Unknown 04/17/2005 10:36 AM TAPER MACHINE 04/17/2005 10:39 AM TAPER MACHINE Historical Provider LAB - PATHOLOGY/C YTOLOGY ORDERABLES * CYTOLOGY SMEAR PAP THIN PREP (02/17/1998 2:07 PM CDT) Result CASE NUMBER [id number] Comment: ORDERING PHYSICIAN JACKSON BALLARD SPECIMEN TYPE PAP Smear Date 02/17/1998 Procedure Cervical/Endocervical, 1 Vial for Thin Prep Received Specimen Adequacy Satisfactory for Evaluation but Limited No endocervical component in a non-atrophic cervical smear. Categorization Within Normal Limits Snomed. 02/23/1998 1621 <1> Auto Transmission Mechanic Iris Stewart(ASCP) PAP Footnote The PAP smear [...]
--- OUTSIDE RECORDS SUMMARY | 2024-07-22 23:33 | XMS_ITS | Referral Summary ---
Author Organization [facility] Address [address] [place] [address] Care Team Providers Care Lock Maintenance Supervisor Name Role Phone Unavailable Primary Care Provider Unavailabl e Source Comments [facility],non-owned Affiliates and Associated Physician Practices is amultiple site organization consisting of ambulatory clinics and hospital sitesin [place], [place], [place] and [place]. This disclosure is being madepursuant to the Care Everywhere program and may not contain all information available regarding this patient. Last updated 18.[facility] [employer] Social History Tobacco Use Types Packs/Day Years Used Date Smoking Tobacco: Never Assessed Sex and Gender Information Value Date Recorded Sex Assigned at Not on file Gender Identity Not on file Sexual Orientation Not on file Plan of Treatment Not on file
--- OUTSIDE RECORDS SUMMARY | 2024-07-22 23:33 | XMS_ITS | Encounter Summary ---
Author Organization [facility] Address [address] [place] [address] Phone Care Team Providers Care Diesel Dinkey Engineer Name Role Phone Elpidio Serrato MD Primary Care Provider [phone] Encounter Details Date Type Department Care Team (Late st Contact Info) Description 07/21/2024 Results Follow-Up [facility] Endocrinology Metabolism and Lipid [address] [place] [address] [place] [address] Merna Bell MD [address] [place], [place] [id number] Social History Tobacco Use Types Packs/Day Years [...] file Legal Sex Female 3:59 AM SYSTEM SAFETY MANAGER Gender Identity Female 05/13/2021 4:21 PM SYSTEM SAFETY MANAGER Sexual Orientation Not on file documented as of this encounter Plan of Treatment Not on file documented as of this encounter Visit Diagnoses Not on filedocumented in this encounter Care Teams Diesel Dinkey Engineer Relationship Specialty Start Date End Date Elpidio Serrato MD PCP - General Internal Medicine 06/09/18 documented as of this encounter
--- OUTSIDE RECORDS SUMMARY | 2024-07-22 23:33 | XMS_ITS | Clinical Summary ---
Author Organization [facility] Address [address] [place] [address] Care Team Providers Care Field Operations Manager Name Role Phone Elpidio Serrato MD Primary Care Provider [phone] Allergies Active Allergy Reactions Criticality Noted Date [...] cut at dc Coronary artery disease involving [place] heart 0 12/12/2023 Encounter for preprocedural cardiovascular exami [facility] 12/12/2023 ROSE (dyspnea on exertion) 11/19/2023 Stable [...] D2. Assessment & Plan (06/13/2020 1:43 PM AIRCRAFT ELECTRICIAN): Check 25OHD, especially if considering therapy for osteoporosis. Assessment & Plan (02/08/2020 3:28 PM CDT): Consider bone DXA with next visit in person, if possible. Assessment & Plan (08/24/2019 10:11 AM CDT): Continue vitamin D supplementation, may be important if you encounter COVID-19. Stay home but get some sun when it comes out. Assessment & Plan (04/01/2019 11:31 AM AIRCRAFT ELECTRICIAN): Levels normal 06/2018. Continue weekly ergocalciferol Clavicle enlargement 06/16/2018 Overview (06/16/2018): Will image to determine etiology. Assessment & Plan (06/16/2018 9:20 PM AIRCRAFT ELECTRICIAN): X-ray shows osteoarthritis with osteophytes. Odd, but does not need follow-up. Primary open angle glaucoma (POAG) of both eyes, moderate stage 06/11/2018 Assessment & Plan (07/15/2023 8:54 AM AIRCRAFT ELECTRICIAN): Doing well without concerns IOP at goal [...] concerns. Assessment & Plan (06/22/2022 7:41 AM AIRCRAFT ELECTRICIAN): POW1 EXTRACTION CATARACT - PHACOEMULSIFICATION AND LENS [...] OS Assessment & Plan (06/15/2022 8:25 AM AIRCRAFT ELECTRICIAN): POD1 EXTRACTION CATARACT - PHACOEMULSIFICATION AND LENS [...] concerns. Assessment & Plan (06/04/2022 2:51 PM AIRCRAFT ELECTRICIAN): Progression of field - plan for goniotomy at time of surgery Continue drops at this time Assessment & Plan (05/19/2021 4:27 PM AIRCRAFT ELECTRICIAN): POAG OU Mild HVF with progression of [...] OU Assessment & Plan (04/25/2020 8:08 AM AIRCRAFT ELECTRICIAN): POAG, former Dr. Thomas patient Mild OU [...] weeks. Assessment & Plan (07/03/2019 9:12 AM AIRCRAFT ELECTRICIAN): Patient returns S/P SLT OD -05/28/2019 -IOP Today by Ta 24/04 by tonopen. -A1C was around 7% at last visit on March 31. RTC 5 months for intraocular pressure (IOP) by applanation and HANS Drops: Combigan BID OU Latanoprost QHS OD Assessment & Plan (04/23/2019 10:48 AM AIRCRAFT ELECTRICIAN): Patient returns for 6 months follow-up with [...] 06/11/2018 Assessment & Plan (07/15/2023 8:54 AM AIRCRAFT ELECTRICIAN): Lenses doing well Assessment & Plan (06/22/2022 7:41 AM AIRCRAFT ELECTRICIAN): The patient understands the risks, benefits, alternatives [...] eye. Assessment & Plan (06/04/2022 2:52 PM AIRCRAFT ELECTRICIAN): NS OU The patient understands the risks, [...] eye. Assessment & Plan (05/19/2021 4:27 PM AIRCRAFT ELECTRICIAN): Now becoming VS Plan for CEIOL\goniotomy in [...] Master Assessment & Plan (04/16/2020 8:17 AM AIRCRAFT ELECTRICIAN): Nearing visual significance May need CEIOL/MIGS soon, but monitor for now Assessment & Plan (01/25/2020 8:46 AM CDT): Nearing visual significance May need CEIOL/MIGS soon, but monitor for now Assessment & Plan (12/05/2019 7:42 PM CDT): Pt ed. Defer cataract extraction (CE) until signs/sx indicate. Assessment & Plan (07/03/2019 9:13 AM AIRCRAFT ELECTRICIAN): NVS. Continue to Monitor. I am scribing in the presence of Dr. Thomas on 07/03/2019, Sandy Aguirre, OSC. I have examined the patient and agree with the resident/fellow's findings and plan as documented. Niranjan Thomas MD Assessment & Plan (04/23/2019 10:45 AM AIRCRAFT ELECTRICIAN): Michelle Soni OSC scribing for and in [...] calories. Assessment & Plan (06/13/2020 1:43 PM AIRCRAFT ELECTRICIAN): Glucose control could not be fully assessed [...] doses. Assessment & Plan (04/01/2019 11:28 AM AIRCRAFT ELECTRICIAN): Diabetes is worsening. Increase Lantus to 50 [...] months. Assessment & Plan (06/16/2018 9:16 PM AIRCRAFT ELECTRICIAN): Diabetes is improving with treatment. Continue current [...] recheck. Assessment & Plan (06/13/2020 1:39 PM AIRCRAFT ELECTRICIAN): Has been well controlled on low dose levothyroxine, will check TSH. Assessment & Plan (02/08/2020 3:27 PM CDT): TSH is perfect, no changes to levothyroxine dose. Assessment & Plan (04/01/2019 11:27 AM AIRCRAFT ELECTRICIAN): Continue current replacement, 88 mcg. Will check TSH today Assessment & Plan (06/16/2018 9:17 PM AIRCRAFT ELECTRICIAN): Thyroid functions are normal on current replacement, 88 mcg. No changes. Actinic keratosis 07/17/2012 Osteoarthritis of knee 12/16/2007 Assessment & Plan (06/16/2018 9:19 PM AIRCRAFT ELECTRICIAN): Follow-up with accreditation specialist. Hyperlipidemia 07/21/2006 Assessment & Plan (11/15/2023 [...] months. Assessment & Plan (06/13/2020 1:44 PM AIRCRAFT ELECTRICIAN): Last LDL was 90, but diabetes therapies have changed. Will recheck. Assessment & Plan (02/08/2020 3:26 PM CDT): LDL is at target, continue simvastatin. Assessment & Plan (04/01/2019 11:29 AM AIRCRAFT ELECTRICIAN): Lipid abnormalities are improving with treatment. LDL is 47 in 06/2018. Continue simvastatin 40 mg daily Lipids will be reassessed in 6 months. Assessment & Plan (06/16/2018 9:17 PM AIRCRAFT ELECTRICIAN): Lipid abnormalities are improving with treatment. LDL is 97 mg/dl. The patient was referred to the wreath machine operator. and Pharmacotherapy as ordered. Lipids will be reassessed in 6 months. Obesity 07/21/2006 Assessment & Plan (01/25/2024 12:48 PM CDT): - BMI 40.32 on admission - provide bariatric equipment Assessment & Plan (04/01/2019 11:30 AM AIRCRAFT ELECTRICIAN): Obesity is unchanged. She is less active [...] appointment. Assessment & Plan (06/16/2018 9:18 PM AIRCRAFT ELECTRICIAN): Hypertension is worsening, BP has increased to [...] Department Care Team Description 07/21/2024 Results Follow-Up [facility] Endocrinology Metabolism and Lipid [address] [facility] Medicine 13th [place] [address] [place] [address] Merna Bell MD 07/20/2024 3:50 PM CDT Lab [facility] [address] [place] [phone] Mixed hyperlipidemia; Hypothyroidism, unspecified type; Chronic congestive heart failure, unspecified heart failure type (HCC); Chronic kidney disease (CKD) stage G3b/A1, moderately decreased glomerular filtration rate (GFR) between 30-44 mL/min/1.73 square meter and albuminuria creatinine ratio less than 30 mg/g (HCC); Other iron deficiency anemia 07/20/2024 11:40 AM CDT Office Visit [facility] Endocrinology Metabolism and Lipid [address] [place] [address] 13th [place] [address] [place] [address] Merna Bell MD Type 2 diabetes mellitus with stage 3a chronic kidney disease, with long-term current use of insulin (HCC) (Primary Dx); Age-related osteoporosis without current pathological fracture; Mixed hyperlipidemia; Chronic kidney disease (CKD) stage G3b/A1, moderately decreased glomerular filtration rate (GFR) between 30-44 mL/min/1.73 square meter and albuminuria creatinine ratio less than 30 mg/g ([facility]); Other iron deficiency anemia; Chronic congestive heart failure, unspecified heart failure type ([facility]); Hypothyroidism, unspecified type 07/13/2024 Orders Only [address] Advanced Medicine [address]th [place] [address] [place] [phone] Fabi Collier NP 07/13/[address]th [place] [address] [place] [phone] Gris Barillas MD 05/29/2024 Orders Only [address] [place] [address] [place] [phone] Gris Barillas MD CAD, multiple vessel (Primary Dx); Hx of CABG from Last 3 Months Immunizations Immunization Administration Dates Next Due Influenza, Trivalent, High D ose, Split, Preservative Free, Intramuscular 03/06/2019 Influenza, Unspecified 02/16/2020,03/06/2019 Pneumococcal Conjugate PCV 13 08/12/2018 Pneumococcal Polysaccharide PPV23 04/29/2017 ZOSTER LIVE 04/29/2017 Surgical History Surgery Date Site/Laterality Comments RI DELIVERY ONLY Section - in 1972 and 1975 (Added by TW Conv) RI APPENDECTOMY unkown dates per pt RI TENDON SHEATH INCISION Hand Incision Tendon [...] Diabetic retinopathy (HCC) Nonproliferative diabetic re tinopathy ([facility]) 11/03/2009 Coronary artery disease Hypertension CHF (congestive heart failure) ([facility]) Thyroid disease Coronary artery disease due to calcified coronary lesion 01/20/2024 Vitamin D deficiency 04/01/2019 Type 2 diabetes mellitus wit h hyperlipidemia ([facility]) 12/07/2016 Last A1C 5.9%, without [...] file Legal Sex Female 3:59 AM AIRCRAFT ELECTRICIAN Gender Identity Female 05/13/2021 4:21 PM AIRCRAFT ELECTRICIAN Sexual Orientation Not on file Obstetrics History [...] history exists Medical Devices Implanted Type Area Airplane Gas Tank Liner Assembler Device Identifier Shelf Expiration Date Model / Serial / Lot [employer] Lens Iol Posterior Biconvex Optic Single Piece Envista 6.0x12.5 +18.0d Hydrophobic Acrylic [id number] - [id number] - [id number] Implanted:Qty: 1 on 06/14/2022 by Makayla Ramos MD at [facility] Lens Right: Lens [employer] [id number] 10/10/2024 [id number] / [id number] / [employer] Lens Iol Posterior Biconvex Optic Single Piece Envista 6.0x12.5 +18.0d Hydrophobic Acrylic [id number] - [id number] - [id number] Implanted:Qty: 1 on 08/16/2022 by Makayla Ramos MD at [facility] Lens Left: Eye [employer] [id number] 05/12/2025 [id number] / [id number] / [id number] [employer] Sternalock Hernan 2.4mm 16mm Self Drill Lock Sternum Cancellous 73-2416 - [id number] Implanted:Qty: 4 on 01/20/2024 by Jeff Alaniz MD at [facility] N/A: Sternum [employer] 73-2416 / / Trial [id number] Achv Atriclip Tony Exclusion System [id number] - [id number] Implanted:Qty: 1 on 01/20/2024 by Stan Treviño MD at [facility] N/A: Heart Atricure [id number] / / Description:clinical trial i tem [id number] ACHV ATRICLIP TONY EXCLUSION SYSTEM [id number] [employer] Suture [place] Cor Knot Pre Loaded Fastener Device Micro Titanium 0 10172 - S0 - [id number] Implanted:Qty: 1 on 01/20/2024 by Stan Treviño MD at [facility] N/A: Heart [employer] [id number] 06/12/2026 [id number] / 0 / [id number] [employer] Suture [place] Cor Knot Pre Loaded Fastener Device Micro Titanium 0 04927 - S0 - [id number] Implanted:Qty: 1 on 01/20/2024 by Stan Treviño MD at [facility] N/A: Heart [employer] [id number] 09/09/2026 87943 / 0 / [id number] [employer] Suture [place] Cor Knot Pre Loaded Fastener Device Micro Titanium 0 35330 - S0 - [id number] Implanted:Qty: 1 on 01/20/2024 by Stan Treviño MD at [facility] N/A: Heart [employer] [id number] 07/10/2026 89697 / 0 / [id number] [employer] Suture [place] Cor Knot Pre Loaded Fastener Device Micro Titanium 0 45158 - S0 - [id number] Implanted:Qty: 1 on 01/20/2024 by Stan Treviño MD at [facility] N/A: Heart [employer] [id number] 10/10/2026 68814 / 0 / [id number] Atricure Device Left Atrial Appendage Malleable Shaft 180 Degree Rotation White Atriclip Flex V 40mm Flexv40 Achv40 - [id number] Implanted:Qty: 1 on 01/20/2024 by Stan Treviño MD at [facility] N/A: Heart Atricure 07/11/2026 [id number] / / [id number] Description:LEFT ATRIAL APPE NDAGE S/B clinical trial item [id number] ACHV ATRICLIP TONY EXCLUSION SYSTEM [id number] [employer] Sternalock 360 Sternal Closure 74-0004 - [id number] Implanted:Qty: 1 on 01/20/2024 by Jeff Alaniz MD at [facility] N/A: Sternum [employer] [id number] 11/04/2028 74-0004 / / [id number] [employer] Sternalock Hernan 2.4mm 14mm Self Drill Lock Sternum Cancellous 73-2414 - [id number] Implanted:Qty: 12 on 01/20/2024 by Jeff Alaniz MD at [facility] N/A: Sternum [employer] 73-2414 / [...] current use of insulin (HCC) POCT GLUCOSE 08247 Routine 07/20/2024 11:13 AM CDT Type 2 diabetes mellitus with stage 3a chronic kidney disease, with long-term current use of insulin (HCC) CBC WITH AUTO DIFFERENTIAL Routine 04/27/2024 9:24 AM AIRCRAFT ELECTRICIAN Anemia, unspecified type ALBUMIN CREATININE RATIO, URINE [...] LAB BLOOD ORDERABLES Final Re sult [facility] [place] [address] * Differential, auto (07/20/2024 1:31 PM CDT) Neutrophil abs 4.5 1.5 - 6.5 K/cumm Imm gran abs 0.0 0.0 - 0.1 K/cumm [facility] Lymphocyte abs 2.0 0.8 - 3.3 K/cumm [facility] Monocyte abs 0.5 0.2 - 0.8 K/cumm [facility] Eosinophil abs 0.1 0.0 - 0.5 K/cumm [facility] Basophil abs 0.0 0.0 - 0.1 K/cumm [facility] Neutrophil pct 63.2 % [facility] Comment: Interpretive Data Percent cell count reference ranges are not reported, since discordance with absolute values may lead to misinterpretation of CBC data. Current Interpretive Data was last revised on 2017. Imm gran pct 0.3 % [facility] Comment: Interpretive Data Percent cell count reference ranges are not reported, since discordance with absolute values may lead to misinterpretation of CBC data. Current Interpretive Data was last revised on 2017. Lymphocyte pct 27.9 % [facility] Comment: Interpretive Data Percent cell count reference ranges are not reported, since discordance with absolute values may lead to misinterpretation of CBC data. Current Interpretive Data was last revised on 2017. Monocyte pct 7.3 % [facility] Comment: Interpretive Data Percent cell count reference ranges are not reported, since discordance with absolute values may lead to misinterpretation of CBC data. Current Interpretive Data was last revised on 2017. Eosinophil pct 0.7 % [facility] Comment: Interpretive Data Percent cell count reference ranges are not reported, since discordance with absolute values may lead to misinterpretation of CBC data. Current Interpretive Data was last revised on 2017. Basophil pct 0.6 % [facility] Comment: Interpretive Data Percent cell count reference ranges are not reported, since discordance with absolute values may lead to misinterpretation of CBC data. Current Interpretive Data was last revised on 2017. Blood 07/20/2024 1:31 PM CDT 07/20/2024 1:58 PM CDT us Merna Bell MD LAB BLOOD ORDERABLES Final Re sult [facility] [address] [facility] Department [place] [address] * (ABNORMAL) Pro B-type natriuretic peptide (07/20/2024 [...] ORDERABLES Final Re sult [facility] [place] [address] * Thyroid Function [place] (07/20/2024 1:31 PM CDT) [facility] TSH 1.96 0.30 - 4.20 mcIUnit/mL Blood 07/20/2024 1:31 PM CDT 07/20/2024 1:58 PM CDT Merna Bell MD LAB BLOOD ORDERABLES Final Re sult Performing Organization Address City/[facility] Co de Phone Number [facility] [place] [address] * (ABNORMAL) Iron profile w/ IBC (07/20/2024 1:31 PM CDT) [facility] Iron 60 35 - 145 mcg/dL TIBC 221(L) 250 - 400 mcg/dL [facility] Transferrin saturation 27 20 - 50 % [facility] Blood 07/20/2024 1:31 PM CDT 07/20/2024 1:58 PM CDT Merna Bell MD LAB BLOOD ORDERABLES Final Re sult Performing Organization Address [facility] de Phone Number [facility] [place] [address] * CBC with auto differential (07/20/2024 1:31 PM CDT) [facility] WBC 7.2 3.8 - 9.9 K/cumm Hgb 13.7 11.9 - 15.5 g/dL [facility] Hct 40.1 35.6 - 45.5 % [facility] Plt 275 150 - 400 K/cumm [facility] MPV 10.2 9.1 - 12.3 fL [facility] RBC 4.63 3.90 - 5.20 M/cumm [facility] MCV 86.6 81.3 - 96.4 fL [facility] MCH 29.6 27.1 - 33.3 pg [facility] MCHC 34.2 32.3 - 35.7 g/dL [facility] RDW CV 14.2 11.1 - 14.9 % [facility] RDW SD 45.6 35.7 - 48.1 fL [facility] NRBC abs 0.00 0.00 - 0.01 K/cumm [facility] Blood 07/20/2024 1:31 PM CDT 07/20/2024 1:58 PM CDT Merna Bell MD LAB BLOOD ORDERABLES Final Re sult [facility] Department [place] [address] * (ABNORMAL) Renal function panel (07/20/2024 1:31 PM CDT) Sodium 142 135 - 145 mmol/L Potassium, pl 3.8 3.3 - 4.9 mmol/L [facility] Chloride 105 97 - 110 mmol/L [facility] CO2 26 22 - 32 mmol/L [facility] Anion gap 11 2 - 15 mmol/L [facility] BUN 28(H) 6 - 25 mg/dL [facility] Creatinine 1.31(H) 0.60 - 1.10 mg/dL [facility] Glucose 254(H) 70 - 199 mg/dL [facility] Comment: Interpretive Data Fasting glucose [...] 2022. Calcium 9.7 8.5 - 10.3 mg/dL [facility] Phosphorus, pl 3.1 2.3 - 4.5 mg/dL [facility] Albumin 4.2 3.5 - 5.0 g/dL [facility] Blood 07/20/2024 1:31 PM CDT 07/20/2024 1:58 PM CDT us Merna Bell MD LAB BLOOD ORDERABLES Final Re sult [facility] Department [place] [address] * (ABNORMAL) Lipid panel (07/20/2024 1:31 PM [...] on 2017. Triglycerides 186(H) <=149 mg/dL [facility] Comment: Interpretive Data Ages [...] on 2017. HDL 46 >=40 mg/dL [facility] Comment: Interpretive Data Ages [...] on 2017. LDL, calculated 117 <=129 mg/dL [facility] Comment: Interpretive Data Ages [...] revised on 2024. Non-HDL Cholesterol 150 mg/dL [facility] Comment: Interpretive Data Ages < [...] revised on 2017. Chol/HDL ratio 4 [facility] Blood 07/20/2024 1:31 PM CDT 07/20/2024 1:58 PM CDT Merna Bell MD LAB BLOOD ORDERABLES Final Re sult [facility] Department [place] [address] * POCT hemoglobin A1c (07/20/2024 11:14 AM CDT) Pathologist [facility] Hemoglobin A1C, POC 6.6 4.0 - 5.6 % Blood 07/20/2024 11:1 4 AM CDT Merna Bell MD POINT OF CARE TEST ORDERABLES Final Result * POCT glucose (07/20/2024 11:13 AM CDT) Pathologist [facility] Glucose Blood, POC 344 mg/dL Blood 07/20/2024 11:1 3 AM CDT us Merna Bell MD POINT OF CARE TEST ORDERABLES Final Result * (ABNORMAL) CBC with auto differential (04/27/2024 9:24 AM AIRCRAFT ELECTRICIAN) Pathologist [facility] WBC 7.8 3.8 - 10.8 Thousand/u L [...] Diagnostics[facility] [place] Blood 04/27/2024 9:24 AM AIRCRAFT ELECTRICIAN 04/27/2024 9:25 AM AIRCRAFT ELECTRICIAN Lia Mariano MIXING TUMBLER OPERATOR LAB BLOOD ORDERABLES Phyllis l Result Performing Organization Address City/[facility] Co de Phone Number [facility] [address] [place] [address] * Albumin Creatinine Ratio, Urine (10/29/2023 9:30 AM CDT) Microalb, Ur 7.9 0.0 - 22.9 mg/L [facility] Random Urine Creatinine 109.6 mg/dL [facility] Microalb/Creat Ratio 7.2 0.0 - 29.9 mg/g [facility] Urine 10/29/2023 9:30 AM CDT 10/29/2023 11:19 AM CDT Lia Mariano MIXING TUMBLER OPERATOR LAB URINE ORDERABLES Phyllis l Result [facility] CORE LAB [facility] * Dexa Axial Skeleton Bone Density 1 or 2 Site (12/03/2022 10:04 AM CDT) Anatomical Region Laterality Modality Body N/A Radiographic Luba ging Narrative 12/04/2022 1:59 PM CDT Patient Name: Isabelle Figueredo Date of : 1950 Date of scan: 12/03/2022 Bone mineral density was performed on a [employer] Discovery Densitometer. Based on machine cross-calibration and [...] by the International Society of Clinical Densitometry. [id number] Merna Bell MD IMG DXA PROCEDURES Final Resu lt from Last 3 Months or Most Recently Relevant to Health Maintenance Insurance MEDICARE [facility] MEDICARE [facility] MEDICARE MEDICARE [facility] FEDERAL Advance Directives For more information, please contact: [phone] * Full Code (Latest Code Status on File) Date Activated Date Inactivated Comments 01/20/2024 5:39 PM 01/28/2024 5:37 PM * Full Code Date Activated Date Inactivated Comments 11/25/2023 10:11 AM 11/25/2023 6:07 PM * Full Code Date Activated Date Inactivated Comments 11/15/2023 4:07 PM 11/16/2023 7:24 PM Care Teams Field Operations Manager Relationship Specialty Start Date End Date Elpidio Serrato MD PCP - General Internal Medicine 06/09/18
--- NOTE | 2024-07-22 23:57 | ED_ITS ---
HPI - Chest Pain General Chief Complaint: Chest Pain Stated Complaint: medial chest pressure, took 1 nitro, bypass in nov Time Seen by Provider: 07/22/24 23:16 Source: patient Mode of arrival: ambulatory Limitations: no limitations History of Present Illness HPI narrative: This is a 74-year-old female with PMH of CAD, s/p CABG x3 who presents to the ED for chief complaint of chest pain starting just prior to arrival. Patient states that she started to have pain in the central chest and it did not really radiate. She did state was associated with lightheadedness but no syncope. Denies diaphoresis, nausea, vomiting, back pain, shortness of breath. States that she has a dry cough but no fevers. Denies abdominal pain, numbness, weakness. States that her CABG procedure was done in January 2024. She states that she took nitro x1 and feels that her chest pain has resolved. Related Data Allergies Allergy/AdvReac Type Severity Reaction Status Date / Time NSAIDS (Non-Steroidal Allergy Unknown Other Verified 05/13/24 11:53 Anti-Inflamma valacyclovir Allergy Unknown Other Verified 05/13/24 11:53 pseudoephedrine Allergy Palpitation Verified 05/13/24 11:53 s Review of Systems 2 Review of Systems: All systems as dictated in HPI [facility] Past Medical History Medical History (Updated 07/23/24 @ 02:49 by Jesse Mariano PA-C) Diabetes Hyperlipidemia Hypertension Family History Family History (Updated 06/09/24 @ 08:51 by Martha Hampton RN) Mother Acute myocardial infarction Hypertension CHF (congestive heart failure) Diabetes mellitus Social History Social History Smoking status: Never smoker Alcohol intake: never Exam 2 Narrative: GENERAL: Well-appearing, well-nourished, and in no acute distress. HEAD: Normocephalic, atraumatic. EYES: PERRLA and EOMI. ENT: Nares clear, no rhinorrhea or epistaxis. Mucous membranes moist. Oropharynx without tonsillar hypertrophy exudate or other lesions. NECK: Supple. No adenopathy or masses. CHEST: No respiratory distress. Clear to auscultation. No wheezes rales or rhonchi HEART: Regular rate and rhythm. No murmur heard. Normal peripheral pulses. ABDOMEN: Soft, nontender, nondistended, normal active bowel sounds. MSK: Normal range of motion. No edema. SKIN: Warm, dry, no rash. NEURO: Alert and oriented x4. No focal deficits. PSYCH: Normal mood and affect. Course Vital Signs Vital signs: Vital Signs Temperature 98.4 F 07/22/24 20:22 Pulse Rate 104 H 07/22/24 20:22 Respiratory Rate 16 07/22/24 20:22 Blood Pressure 145/72 H 07/22/24 20:22 Pulse Oximetry 99 07/22/24 20:22 Oxygen Delivery Room Air 07/22/24 20:22 Temperature 98.4 F 07/22/24 20:22 Pulse Rate 104 H 07/22/24 20:22 Respiratory Rate 16 07/22/24 20:22 Blood Pressure 145/72 H 07/22/24 20:22 Pulse Oximetry 97 07/23/24 01:01 Oxygen Delivery Room Air 07/23/24 01:01 MDM - Chest Pain MDM Narrative Medical decision making narrative: This is a 74-year-old female who presents to the ED for chief complaint Troponin at 0 and 3 hour rosalino are normal. D-dimer is slightly elevated at 1.23. She is slightly hypokalemic. Mild elevation in BUN and appears mildly dehydrated. Viral swabs are positive for COVID-19. Chest x-ray shows no acute findings. Chest CTA shows no evidence of pulmonary embolism, aortic aneurysm or dissection. She was given fluids, potassium here. She has remained pain-free during her entire stay in the ED. I advised that her heart score today is 5 which puts her at high risk for cardiac event. Shared decision making regarding disposition. She feels well and would like to go home today. She ensures that she will follow-up with her lathe hand regarding chest pain. It is possible that her pain tonight was more due to viral syndrome with active COVID-19. Patient will be discharged in stable condition. Supportive measures discussed and return precautions given. Patient is understanding and agreeable with plan for discharge with PCP follow-up. Lab Data 07/22/24 20:33 07/22/24 20:33 Labs: Lab Results 07/22/24 07/22/24 07/22/24 Range/Units 20:32 20:33 23:34 WBC 5.8 (4.5-10.0) K/mm3 RBC 4.39 (4.2-5.4) M/mm3 Hgb 13.1 (12.0-15.0) g/dL Hct 39.0 (37.0-47.0) % MCV 88.8 (80-100) fl MCH 29.8 (26-34) pg MCHC 33.6 (32-36) g/dl RDW 14.4 (11.5-14.5) % Plt Count 219 (150-375) k/mm3 MPV 10.7 H (7.4-10.4) fl Immature Gran % (Auto) 0.3 (0-0.5) % Neut % (Auto) 74.7 H (45.5-73.1) % Lymph % (Auto) 13.2 L (18.3-44.2) % [place] % (Auto) 10.6 H (2.6-8.5) % Eos % (Auto) 0.7 (0-4.4) % Baso % (Auto) 0.5 (0.2-1.2) % Lymph # (Auto) 0.76 L (0.9-3.2) K/mm3 [place] # (Auto) 0.6 (0.1-0.6) K/mm3 Eos # (Auto) 0.0 (0-0.3) K/mm3 Baso # (Auto) 0.0 (0.0-0.1) K/mm3 Abs Immat Gran (auto) 0.02 (0.00-0.031) K/mm3 Absolute Neuts (auto) 4.3 (1.3-6.7) K/mm3 Absolute Nucleated RBC 0.000 (0.0-0.012) K/mm3 Nucleated RBC % 0.0 (0.0-0.2) % PT 13.9 (11.1-14.7) Seconds INR 1.0 APTT 30.3 (22.3-36.8) Seconds D-Dimer 1.23 H (<0.48) ug/mL Sodium 134 L (137-145) mmol/L Potassium 3.3 L (3.4-5.0) mmol/L Chloride 101 (98-107) mmol/L Carbon Dioxide 20 L (22-30) mmol/L Anion Gap 13 H (4-12) mmol/L BUN 19 H D (7-17) mg/dL Creatinine 1.13 H (0.7-1.0) mg/dL Estim Creat Clear Calc Not Reportable Estimated GFR 47 L (59 - ) Glucose 167 H (65-110) mg/dL Calcium 8.6 (8.4-10.2) mg/dL Total Bilirubin 0.2 (0.2-1.3) mg/dL AST 34 (14-36) U/L ALT 26 (6-35) U/L Alkaline Phosphatase 98 (38-126) U/L Troponin I < 0.012 0.012 (0.000-0.034) ng/mL Total Protein 7.0 (6.3-8.2) g/dL Albumin 4.1 (3.5-5.1) g/dL Lipase 316 H (23-300) U/L Influenza A (RT-PCR) Negative (Negative) Influenza B (RT-PCR) Negative (Negative) RSV (RT-PCR) Negative (Negative) SARS-CoV-2 RNA (RT-PCR) Positive A (Negative) Discharge Plan Discharge Clinical Impression: Chest pain, COVID-19 Patient Disposition: Home, Self-Care Condition: Stable Instructions: Antibiotic Form Additional Instructions: Your exam and imaging today are reassuring overall. You do have evidence of COVID-19. Please contact your primary care doctor to see if you should take Paxlovid. Follow-up with lathe hand as well regarding chest pain. If you have any new or worsening symptoms please return to the ER for further evaluation. Patient Language: Mohawk Prescriptions: No Action cephalexin 500 mg capsule 500 mg PO Q8H 7 Days Qty: 21 0RF cephalexin 500 mg capsule 500 mg PO Q6H 10 Days Qty: 40 0RF tramadol 50 mg tablet 50 mg PO Q6H PRN (Reason: pain) Qty: 15 0RF tizanidine 2 mg capsule 2 mg PO Q8H PRN (Reason: muscle spasticity) Qty: 14 0RF acetaminophen 500 mg capsule 500 mg PO QID PRN (Reason: pain) Qty: 20 0RF Follow-up/Referrals: PHYSICIAN,GUIDANCE SERVICES COORDINATOR [Primary Care Provider] - Time of Disposition: 02:49 Quality HEART score for chest pain patients History: slightly suspicious ECG: non specific repolarization disturbance/LBTB/PM Age: > or = to 65 years Risk factors: > or = to 3 risk factors of atherosclerotic disease Troponin: < or = to 1x normal limit Heart score: 5
[2024-07-23 00:01] LABS: Troponin I 0.012 ng/mL (0.000-0.034)
[2024-07-23 00:28] LABS: D Dimer 1.23 ug/mL (<0.48)
[2024-07-23 01:01] VITALS: O2SAT 97
[2024-07-23 01:30] VITALS: BP 138/74; PULSE 99; RESP 17; O2SAT 98
[2024-07-23] MEDS: POTASSIUM CHLORIDE 20 MEQ ER TABLET 40 MEQ PO (02:19)
[2024-07-23] MEDS: LACTATED RINGERS 1,000 ML 999 ML IV CONT (02:20)
[2024-07-23 03:32] VITALS: BP 136/66; PULSE 94; RESP 17; O2SAT 98
== END 2024-07-23 03:34 | disposition home or self-care (01) ==
PROVIDERS: Emergency Medicine; Emergency Provider Physician Assistant
DX: U07.1 COVID-19 (principal); R07.9 Chest pain, unspecified; I25.10 Atherosclerotic heart disease of native coronary artery without angina pectoris; I10 Essential (primary) hypertension; E78.5 Hyperlipidemia, unspecified; E11.9 Type 2 diabetes mellitus without complications; Z95.1 Presence of aortocoronary bypass graft
CPT/HCPCS: 36415; 71046; 71275; 80053; 83690; 84484; 85025; 85380; 85610; 85730; 87637; 93005; 96360; 99284; A9270; J7120; Q9967

== ENCOUNTER 2024-09-10 07:15 | Outpatient (RCR) | payer MEDICARE, BC, SELFPAY ==
[2024-08-10 08:25] LABS: Glucose Point of Care 89 mg/dl (65-105)
== END 2024-09-10 10:58 | disposition home or self-care (01) ==
LOC: ANHCPREHAB 07:15
DX: Z95.1 Presence of aortocoronary bypass graft (principal)
CPT/HCPCS: 93798